=== PATIENT | male | born 1960 | race Caucasian/White ===

== ENCOUNTER 2017-08-07 09:42 | Inpatient (IN) | payer MEDICARE, OTHER ==
[2017-08-07] MEDS ORDERED: ALTEPLASE 2 MG VIAL (CATHFLO) IV STA (10:12)
--- NOTE | 2017-08-07 10:16 | ED ---
General Adult HPI - General Chief complaint: Urogenital Stated complaint: Picc Line Replacement Time Seen by Provider: 08/07/17 10:10 Source: EMS, RN notes reviewed Mode of arrival: EMS Limitations: physical limitation - History of Present Illness Initial comments: 57-year-old male who is a poor historian and unable to give history presents due to concern for PICC line out of place as well as concern for sepsis due to possible UTI. This is all that is red and on the report from the alf where the patient came from. The patient is unable to give a history. Does have a UTI per them as well and he's been receiving meropenem however they believe that he broke out in rash of this and they're concerned for an ALLERGY. Patient says no to pain when asked. Unable to get further review of systems. - Related Data Home Medications Medication Instructions Recorded Confirmed Amantadine Syrup 50mg/5mg 100 mg PEG/G-TUBE Q12H 08/07/17 08/07/17 Ascorbic Acid 100 mg PEG/G-TUBE DAILY 08/07/17 08/07/17 Cholecalciferol (Vitamin D3) 1,000 unit PEG/G-TUBE DAILY 08/07/17 08/07/17 [Children's Vitamin D3] Esomeprazole Magnesium Packet 20 mg PEG/G-TUBE DAILY 08/07/17 08/07/17 Ferrous Sulfate Oral Elixir 300 mg PEG/G-TUBE DAILY 08/07/17 08/07/17 [Feosol Liquid] Gabapentin 250mg/5ml 400 mg PEG/G-TUBE Q8H 08/07/17 08/07/17 HYDROcodone/APAP 7.5-325MG [[place] 1 tab PEG/G-TUBE Q4H PRN 08/07/17 08/07/17 7.5-325] Ipratropium-Albuterol Nebulize 3 ml INHALATION RT-Q4H PRN 08/07/17 08/07/17 [Duoneb 0.5 mg-3 mg/3 ml Soln] Jevity 1.5 Sherman Liquid 2 can PEG/G-TUBE TID 08/07/17 08/07/17 Magnesium Oxide [Magox 400] 400 mg PEG/G-TUBE DAILY 08/07/17 08/07/17 Meropenem [Merrem] 1 gm IVPB Q8H 08/07/17 08/07/17 Metoprolol Tartrate [Lopressor] 25 mg PEG/G-TUBE Q12H 08/07/17 08/07/17 Multivitamins, Thera [Multivitamin 1 tab PEG/G-TUBE DAILY 08/07/17 08/07/17 (formulary)] Scopolamine 1 patch TRANSDERM Q72H 08/07/17 08/07/17 Sennosides-Docusate Sodium 1 tab PEG/G-TUBE BID 08/07/17 08/07/17 [Senokot-S] Warfarin [Coumadin] 3 mg PEG/G-TUBE DAILY 08/07/17 08/07/17 Allergies Allergy/AdvReac Type Severity Reaction Status Date / Time meropenem [From Merrem] Allergy Rash/Hives Verified 08/07/17 10:07 Review of Systems ROS Statement: Those systems with pertinent positive or pertinent negative responses have been documented in the HPI. ROS Other: All systems not noted in ROS Statement are negative. Past Medical History Past Medical History: Deep Vein Thrombosis (DVT), Musculoskeletal Disorder Additional Past Medical History / Comment(s): PEG, Impaired speech, NPO,DVT-arm History of Any Multi-Drug Resistant Organisms: None Reported Additional Past Surgical History / Comment(s): PEG, PICC Past Psychological History: Depression Smoking Status: Never smoker Past Alcohol Use History: None Reported Past Drug Use History: None Reported General Exam Limitations: physical limitation General appearance: alert, in no apparent distress Eye exam: Present: normal appearance, PERRL, EOMI. Absent: scleral icterus, conjunctival injection, periorbital swelling ENT exam: Present: normal exam, mucous membranes moist Neck exam: Present: normal inspection. Absent: tenderness, meningismus, lymphadenopathy Respiratory exam: Present: normal lung sounds bilaterally. Absent: respiratory distress, wheezes, rales, rhonchi, stridor Cardiovascular Exam: Present: regular rate, normal rhythm, normal heart sounds. Absent: systolic murmur, diastolic murmur, rubs, gallop, clicks GI/Abdominal exam: Present: soft, normal bowel sounds. Absent: distended, tenderness, guarding, rebound, rigid Neurological exam: Present: alert Psychiatric exam: Present: normal affect, normal mood Skin exam: Present: warm, dry, intact, normal color. Absent: rash Course Vital Signs 08/07/17 08/07/17 09:45 13:12 Temperature 95.7 F L 96.7 F L Pulse Rate 86 76 Respiratory 16 18 Rate Blood Pressure 117/77 144/90 O2 Sat by Pulse 96 97 Oximetry Medical Decision Making - Medical Decision Making 57-year-old male presents for misplacement of PICC line as well as UTI with concern for sepsis. This time urinalysis did show UTI. At this time we will admit the patient Zosyn was started. Atrophy doesn't does agree to this admission. Patient is agreement this plan. - Lab Data Result diagrams: 08/07/17 10:37 08/07/17 10:37 Lab Results 08/07/17 08/07/17 08/07/17 Range/Units 10:37 10:37 10:37 WBC 11.4 H (3.8-10.6) k/uL RBC 4.43 (4.30-5.90) m/uL Hgb 10.2 L (13.0-17.5) gm/dL Hct 35.6 L (39.0-53.0) % MCV 80.3 (80.0-100.0) fL MCH 23.1 L (25.0-35.0) pg MCHC 28.8 L (31.0-37.0) g/dL RDW 17.5 H (11.5-15.5) % Plt Count 490 H (150-450) k/uL Neutrophils % 75 % Lymphocytes % 13 % Monocytes % 6 % Eosinophils % 4 % Basophils % 0 % Neutrophils # 8.5 H (1.3-7.7) k/uL Lymphocytes # 1.5 (1.0-4.8) k/uL Monocytes # 0.7 (0-1.0) k/uL Eosinophils # 0.5 (0-0.7) k/uL Basophils # 0.1 (0-0.2) k/uL Hypochromasia Marked Anisocytosis Slight Microcytosis Slight Sodium 140 (137-145) mmol/L Potassium 4.6 (3.5-5.1) mmol/L Chloride 105 (98-107) mmol/L Carbon Dioxide 24 (22-30) mmol/L Anion Gap 11 mmol/L BUN 29 H (9-20) mg/dL Creatinine 1.03 (0.66-1.25) mg/dL Est GFR (MDRD) Af Amer >60 (>60 ml/min/1.73 sqM) Est GFR (MDRD) Non-Af >60 (>60 ml/min/1.73 sqM) Glucose 106 H (74-99) mg/dL Plasma Lactic Acid [place] 0.9 (0.7-2.0) mmol/L Calcium 9.0 (8.4-10.2) mg/dL Total Bilirubin 0.1 L (0.2-1.3) mg/dL AST 18 (17-59) U/L ALT 28 (21-72) U/L Alkaline Phosphatase 127 H (38-126) U/L Total Protein 7.8 (6.3-8.2) g/dL Albumin 3.4 L (3.5-5.0) g/dL Urine Color Urine Appearance (Clear) Urine pH (5.0-8.0) Ur Specific [place] (1.001-1.035) Urine Protein (Negative) Urine Glucose (UA) (Negative) Urine Ketones (Negative) Urine Blood (Negative) Urine Nitrite (Negative) Urine Bilirubin (Negative) Urine Urobilinogen (<2.0) mg/dL Ur Leukocyte Esterase (Negative) Urine RBC (0-5) /hpf Urine WBC (0-5) /hpf Urine WBC Clumps (None) /hpf Urine Bacteria (None) /hpf Urine Mucus (None) /hpf 08/07/17 Range/Units 10:56 WBC (3.8-10.6) k/uL RBC (4.30-5.90) m/uL Hgb (13.0-17.5) gm/dL Hct (39.0-53.0) % MCV (80.0-100.0) fL MCH (25.0-35.0) pg MCHC (31.0-37.0) g/dL RDW (11.5-15.5) % Plt Count (150-450) k/uL Neutrophils % % Lymphocytes % % Monocytes % % Eosinophils % % Basophils % % Neutrophils # (1.3-7.7) k/uL Lymphocytes # (1.0-4.8) k/uL Monocytes # (0-1.0) k/uL Eosinophils # (0-0.7) k/uL Basophils # (0-0.2) k/uL Hypochromasia Anisocytosis Microcytosis Sodium (137-145) mmol/L Potassium (3.5-5.1) mmol/L Chloride (98-107) mmol/L Carbon Dioxide (22-30) mmol/L Anion Gap mmol/L BUN (9-20) mg/dL Creatinine (0.66-1.25) mg/dL Est GFR (MDRD) Af Amer (>60 ml/min/1.73 sqM) Est GFR (MDRD) Non-Af (>60 ml/min/1.73 sqM) Glucose (74-99) mg/dL Plasma Lactic Acid [place] (0.7-2.0) mmol/L Calcium (8.4-10.2) mg/dL Total Bilirubin (0.2-1.3) mg/dL AST (17-59) U/L ALT (21-72) U/L Alkaline Phosphatase (38-126) U/L Total Protein (6.3-8.2) g/dL Albumin (3.5-5.0) g/dL Urine Color Yellow Urine Appearance Turbid (Clear) Urine pH 7.0 (5.0-8.0) Ur Specific [place] 1.013 (1.001-1.035) Urine Protein 1+ H (Negative) Urine Glucose (UA) Negative (Negative) Urine Ketones Negative (Negative) Urine Blood Moderate H (Negative) Urine Nitrite Positive (Negative) Urine Bilirubin Negative (Negative) Urine Urobilinogen <2.0 (<2.0) mg/dL Ur Leukocyte Esterase Large H (Negative) Urine RBC 42 H (0-5) /hpf Urine WBC >182 H (0-5) /hpf Urine WBC Clumps Many H (None) /hpf Urine Bacteria Moderate H (None) /hpf Urine Mucus Rare H (None) /hpf - Radiology Data Radiology results: report reviewed, image reviewed Disposition Clinical Impression: UTI (urinary tract infection), Sepsis, Failure of outpatient treatment, Status post PICC central line placement Disposition: ADMITTED IP TO THIS [facility] Condition: Stable Referrals: Brenden Olivares DO [Primary Care Provider] - 1-2 days Decision Date: 08/07/17 Decision Time: 13:36
[2017-08-07] MEDS ORDERED: SODIUM CHLORIDE 0.9% 500 ML IV STA (10:17)
[2017-08-07] MEDS ORDERED: PIPERACILLIN-TAZOBACTAM 3.375 GM in DEXTROSE/WATER 1 50ML.BAG IVPB STA (10:24)
[2017-08-07 11:01] LABS: ALT 28 U/L (21-72); AST 18 U/L (17-59); Alkaline Phosphatase 127 U/L (38-126); Anion Gap 11 mmol/L; Blood Urea Nitrogen 29 mg/dL (9-20); Carbon Dioxide 24 mmol/L (22-30); Chloride 105 mmol/L (98-107); Glucose 106 mg/dL (74-99); Non-African American GFR(MDRD) >60 (>60 ml/min/1.73 sqM); Potassium 4.6 mmol/L (3.5-5.1); Sodium 140 mmol/L (137-145); Total Bilirubin 0.1 mg/dL (0.2-1.3); Total Protein 7.8 g/dL (6.3-8.2)
[2017-08-07 11:10] LABS: Anisocytosis Slight; Basophils # (A) 0.1 k/uL (0-0.2); Basophils % (A) 0 %; CH 23.3; Eosinophils # (A) 0.5 k/uL (0-0.7); Eosinophils % (A) 4 %; HCT 35.6 % (39.0-53.0); HDW 2.79; HGB 10.2 gm/dL (13.0-17.5); Hypochromasia Marked; Luc # (Auto) 0.14; Luc % (Auto) 1; Lymphocytes # (A) 1.5 k/uL (1.0-4.8); Lymphocytes % (A) 13 %; MCH 23.1 pg (25.0-35.0); MCHC 28.8 g/dL (31.0-37.0); MCV 80.3 fL (80.0-100.0); Mean Platelet Volume 7.8; Microcytosis Slight; Monocytes # (A) 0.7 k/uL (0-1.0); Monocytes % (A) 6 %; Neutrophils # (A) 8.5 k/uL (1.3-7.7); Neutrophils % (A) 75 %; RBC 4.43 m/uL (4.30-5.90); RDW 17.5 % (11.5-15.5); WBC 11.4 k/uL (3.8-10.6); WBC (Perox) 10.92
[2017-08-07 11:29] LABS: Appearance,Urine Turbid (Clear); Bacteria,Urine Moderate /hpf; Bilirubin,Urine Negative (Negative); Glucose,Urine (UA) Negative (Negative); Ketones,Urine Negative (Negative); Leukocyte Esterase,Urine Large (Negative); Mucus,Urine Rare /hpf; Nitrite,Urine Positive (Negative); Particle Count 60518; Protein,Urine 1+ (Negative); RBC,Urine 42 /hpf (0-5); Specific Gravity,Urine 1.013 (1.001-1.035); UA Billing (MACRO vs. MICRO) MICRO; Urobilinogen,Urine <2.0 mg/dL (<2.0); WBC,Urine >182 /hpf (0-5)
--- NOTE | 2017-08-07 12:06 | XR ---
EXAMINATION TYPE: XR chest 2V DATE OF EXAM: 08/07/2017 COMPARISON: None HISTORY: 57-year-old male PICC line placement, concern that PICC line is out of place TECHNIQUE: AP and lateral views FINDINGS: Patient is obliqued. Heart appears upper limits of normal in size. Aorta and pulmonary vasculature wi thin normal limits. Mild diffuse interstitial prominence has a chronic appearance. No consolidation, air leak, or pleural effusion. PICC line is not visualized. Chronic left-sided rib fracture deformities. IMPRESSION: PICC line is not visualized within the thorax. Chronic appearing changes; no acute process seen.
--- NOTE | 2017-08-07 12:12 | XR ---
EXAMINATION TYPE: XR shoulder complete RT DATE OF EXAM: 08/07/2017 COMPARISON: NONE HISTORY: 57-year-old male PICC line placement TECHNIQUE: 3 views FINDINGS: Mild degenerative changes at the AC joint. There appears to be a catheter, probably the patient's PIC C line terminating just below the level of the right axilla along the medial arm. This is indicated b y arrows on both the AP and scapular Y views. IMPRESSION: A catheter, likely the patient's malpositioned PICC line terminating just below the level of the righ t axilla. Further clinical correlation recommended.
[2017-08-07] MEDS ORDERED: NALOXONE 0.4 MG/ML 1 ML VIAL IV PRN (13:36)
[2017-08-07] MEDS ORDERED: ONDANSETRON 4 MG/2 ML VIAL IVP PRN (13:36)
[2017-08-07] MEDS ORDERED: IPRATROPIUM-ALBUTEROL 3 ML NEB INHALATION PRN (13:37)
[2017-08-07] MEDS ORDERED: JEVITY CAL PEG/G-TUBE SCH (16:00)
[2017-08-07] MEDS ORDERED: GABAPENTIN PO SCH (16:00)
[2017-08-07] MEDS ORDERED: GABAPENTIN 400 MG CAP PO SCH (17:30)
[2017-08-07] MEDS: GABAPENTIN 400 MG CAP PO SCH ×2 (17:59→20:47)
[2017-08-07] MEDS: METOPROLOL TARTRATE 25 MG TAB PEG/G-TUBE SCH ×2 (17:59→20:46)
[2017-08-07] MEDS: SCOPOLAMINE 1.5MG/72HR PATCH TRANSDERM SCH (17:59)
[2017-08-07] MEDS: SODIUM CHLORIDE 0.9% 1,000 ML IV SCH (18:09)
[2017-08-07] MEDS: PIPERACILLIN-TAZOBACTAM 3.375 GM in DEXTROSE/WATER 1 50ML.BAG IVPB SCH (19:44)
[2017-08-07 19:52] LABS: INR 2.2 (<1.2); Prothrombin Time 20.8 sec (9.0-12.0)
[2017-08-07] MEDS: AMANTADINE HCL PEG/G-TUBE SCH (20:47)
--- NOTE | 2017-08-08 00:08 | P.HPIM ---
History of Present Illness H&P Date: 08/07/17 Chief Complaint: PICC line displacement 57-year-old male with a past history of musculoskeletal disorder and chronic lower extremity contractures and DVT and Coumadin, who is a poor historian and unable to give history presents due to concern for PICC line out of place as well as concern for sepsis due to possible UTI. This is all that is read on the report from the [facility] where the [facility] came [facility]. The patient is unable to give a history. Does have a UTI per them as well and he's been receiving meropenem however they believe that he broke out in rash of this and they're concerned for an ALLERGY. Patient says no to pain when asked. Patient does say yes or no and he can understand but could not able to communicate. Unable to get further review of systems. Review of Systems Complete review of systems could not be a peripheral the patient ROS unobtainable: due to mental status Past Medical History Past Medical History: Deep Vein Thrombosis (DVT), Musculoskeletal Disorder, Renal Disease Additional Past Medical History / Comment(s): pt poor historian-cog impariment/ Impaired speech, NPO-peg tube,DVT-arm, MS, IDC ,INCONT OF BOWEL. LAST BM 08-07-17 ,UTI'S,SACRAL WOUND,CONTRACTURES,DYSARTHRIA/ANARTHRIA/DYSPHAGIA.BEDBOUND, RACHEL LIFT TO W/C. History of Any Multi-Drug Resistant Organisms: None Reported Additional Past Surgical History / Comment(s): PEG, PICC(MISPLACED-SENT TO [facility]) , HX OF GASTROSTOMY Past Anesthesia/Blood Transfusion Reactions: Unable to Obtain Past Psychological History: Depression Additional Psychological History / Comment(s): PT RESIDES AT [facility] [phone] Smoking Status: Never smoker Past Alcohol Use History: None Reported Past Drug Use History: None Reported - Past Family History Father Family Medical History: Unable to Obtain Mother Family Medical History: Unable to Obtain Medications and Allergies Home Medications Medication Instructions Recorded Confirmed Type Amantadine Syrup 50mg/5mg 100 mg PEG/G-TUBE Q12H 08/07/17 08/07/17 History Ascorbic Acid 100 mg PEG/G-TUBE DAILY 08/07/17 08/07/17 History Cholecalciferol (Vitamin D3) 1,000 unit PEG/G-TUBE DAILY 08/07/17 08/07/17 History [Children's Vitamin D3] Esomeprazole Magnesium Packet 20 mg PEG/G-TUBE DAILY 08/07/17 08/07/17 History Ferrous Sulfate Oral Elixir 300 mg PEG/G-TUBE DAILY 08/07/17 08/07/17 History [Feosol Liquid] Gabapentin 250mg/5ml 400 mg PEG/G-TUBE Q8H 08/07/17 08/07/17 History HYDROcodone/APAP 7.5-325MG [[place] 1 tab PEG/G-TUBE Q4H PRN 08/07/17 08/07/17 History 7.5-325] Ipratropium-Albuterol Nebulize 3 ml INHALATION RT-Q4H PRN 08/07/17 08/07/17 History [Duoneb 0.5 mg-3 mg/3 ml Soln] Jevity 1.5 Sherman Liquid 2 can PEG/G-TUBE TID 08/07/17 08/07/17 History Magnesium Oxide [Magox 400] 400 mg PEG/G-TUBE DAILY 08/07/17 08/07/17 History Meropenem [Merrem] 1 gm IVPB Q8H 08/07/17 08/07/17 History Metoprolol Tartrate [Lopressor] 25 mg PEG/G-TUBE Q12H 08/07/17 08/07/17 History Multivitamins, Thera [Multivitamin 1 tab PEG/G-TUBE DAILY 08/07/17 08/07/17 History (formulary)] Scopolamine 1 patch TRANSDERM Q72H 08/07/17 08/07/17 History Sennosides-Docusate Sodium 1 tab PEG/G-TUBE BID 08/07/17 08/07/17 History [Senokot-S] Warfarin [Coumadin] 3 mg PEG/G-TUBE DAILY 08/07/17 08/07/17 History Allergies Allergy/AdvReac Type Severity Reaction Status Date / Time meropenem [From Merrem] Allergy Rash/Hives Verified 08/07/17 10:07 Physical Exam Vitals: Vital Signs Temp Pulse Pulse Resp BP BP Pulse Ox 08/07/17 16:00 82 18 08/07/17 15:00 97.5 F L 82 18 133/83 99 08/07/17 14:21 96.8 F L 84 18 139/79 99 08/07/17 14:02 97 08/07/17 13:12 96.7 F L 76 18 144/90 97 08/07/17 09:45 95.7 F L 86 16 117/77 96 Intake and Output 08/07/17 08/07/17 08/07/17 06:59 14:59 22:59 Other: Voiding Method Indwelling Catheter Indwelling Catheter # Bowel Movements 1 Weight 57.153 kg 57.153 kg Patient Weight 08/08/17 06:59 Weight 57.153 kg PHYSICAL EXAMINATION: Patient is lying in the bed comfortably, no acute distress, awake alert but cannot communicate HEENT: Normocephalic. Neck is supple. Pupils reactive. Nostrils clear. Oral cavity is moist. Ears reveal no drainage. Neck reveals no JVD, carotid bruits, or thyromegaly. CHEST EXAMINATION: Trachea is central. Symmetrical expansion. Lung prater clear to auscultation and percussion. CARDIAC: Normal S1, S2 with no gallops. No murmurs ABDOMEN: Soft. Bowel sounds normal. No organomegaly. No abdominal bruits. Extremities: reveal no edema. No clubbing or cyanosis Neurologically awake, alert. Patient does have bilateral lower activity contractures Skin: No rash or skin lesions. Psychiatric: Could not be assessed Musculoskeletal: No joint swelling or deformity. Lower extremity contractures Results CBC & Chem 7: 08/07/17 10:37 08/07/17 10:37 Labs: Abnormal Lab Results - Last 24 Hours (Table) 08/07/17 08/07/17 08/07/17 Range/Units 10:37 10:37 10:37 WBC 11.4 H (3.8-10.6) k/uL Hgb 10.2 L (13.0-17.5) gm/dL Hct 35.6 L (39.0-53.0) % MCH 23.1 L (25.0-35.0) pg MCHC 28.8 L (31.0-37.0) g/dL RDW 17.5 H (11.5-15.5) % Plt Count 490 H (150-450) k/uL Neutrophils # 8.5 H (1.3-7.7) k/uL PT 20.8 H (9.0-12.0) sec INR 2.2 H (<1.2) BUN 29 H (9-20) mg/dL Glucose 106 H (74-99) mg/dL Total Bilirubin 0.1 L (0.2-1.3) mg/dL Alkaline Phosphatase 127 H (38-126) U/L Albumin 3.4 L (3.5-5.0) g/dL Urine Protein (Negative) Urine Blood (Negative) Ur Leukocyte Esterase (Negative) Urine RBC (0-5) /hpf Urine WBC (0-5) /hpf Urine WBC Clumps (None) /hpf Urine Bacteria (None) /hpf Urine Mucus (None) /hpf 08/07/17 Range/Units 10:56 WBC (3.8-10.6) k/uL Hgb (13.0-17.5) gm/dL Hct (39.0-53.0) % MCH (25.0-35.0) pg MCHC (31.0-37.0) g/dL RDW (11.5-15.5) % Plt Count (150-450) k/uL Neutrophils # (1.3-7.7) k/uL PT (9.0-12.0) sec INR (<1.2) BUN (9-20) mg/dL Glucose (74-99) mg/dL Total Bilirubin (0.2-1.3) mg/dL Alkaline Phosphatase (38-126) U/L Albumin (3.5-5.0) g/dL Urine Protein 1+ H (Negative) Urine Blood Moderate H (Negative) Ur Leukocyte Esterase Large H (Negative) Urine RBC 42 H (0-5) /hpf Urine WBC >182 H (0-5) /hpf Urine WBC Clumps Many H (None) /hpf Urine Bacteria Moderate H (None) /hpf Urine Mucus Rare H (None) /hpf Microbiology - Last 24 Hours (Table) 08/07/17 10:56 Urine Culture - Preliminary Urine,Catheterized Assessment and Plan Assessment: #1 acute urinary tract infection. #2 recent urinary tract infection on meropenem at [facility] which has been discontinued due to possible ALLERGY reaction #3 PICC line displacement. #4 musculoskeletal disorder and contractures #5 DVT on Coumadin Plan: Patient will be continued on antibiotics Zosyn at this time. Will follow urine culture report. We will consult PICC line team for repositioning PICC line tip , possibly pulling out couple of inches. Will continue the supportive care and continue the home medications and follow closely. Further recommendations based on the clinical course. Time with Patient: Greater than 30
[2017-08-08] MEDS: PIPERACILLIN-TAZOBACTAM 3.375 GM in DEXTROSE/WATER 1 50ML.BAG IVPB SCH ×3 (03:15→20:31)
[2017-08-08] MEDS: SODIUM CHLORIDE 0.9% 1,000 ML IV SCH ×3 (03:15→22:30)
[2017-08-08] MEDS ORDERED: ESOMEPRAZOLE MAGNESIUM 20 MG PEG/G-TUBE SCH (09:00)
[2017-08-08] MEDS: AMANTADINE HCL PEG/G-TUBE SCH ×2 (09:59→20:41)
[2017-08-08] MEDS: GABAPENTIN 400 MG CAP PO SCH ×3 (10:00→22:33)
[2017-08-08] MEDS: ASCORBIC ACID 500 MG TAB PEG/G-TUBE SCH (10:00)
[2017-08-08] MEDS: CHOLECALCIFEROL 1,000 UNIT TAB PEG/G-TUBE SCH (10:00)
[2017-08-08] MEDS: MAGNESIUM OXIDE 400 MG TAB PEG/G-TUBE SCH (10:01)
[2017-08-08] MEDS: METOPROLOL TARTRATE 25 MG TAB PEG/G-TUBE SCH ×2 (10:01→20:40)
[2017-08-08] MEDS: PANTOPRAZOLE 40 MG/10 ML VIAL IV SCH (10:36)
[2017-08-08] MEDS: FERROUS SULFATE ORAL ELIXIR 300 MG/5 ML CUP PEG/G-TUBE SCH (10:42)
[2017-08-08 12:31] LABS: INR 2.4 (<1.2); Prothrombin Time 23.5 sec (9.0-12.0)
[2017-08-08] MEDS: WARFARIN 3 MG TAB PEG/G-TUBE SCH (16:06)
--- NOTE | 2017-08-08 16:11 | CDI ---
In responding to this query, please exercise your independent professional judgment. The [facility] Coding Staff and Clinical Documentation Specialists appreciate your assistance in clarifying documentation, maintaining compliance with coding guidelines, accurately documenting patients condition and capturing severity of illness. The fact that a question is asked does not imply that any particular answer is desired or expected. Communication forms are a method of clarifying documentation and are not made part of the Legal Health Record. Thank you in advance for your clarification. Last Revision, August 2015 Nathalie Perez [address] [facility] [place] [address] Documentation Clarification Form Date: 08/08/2017 3:49:00 PM From: Martha Pastor RN, CCDS Admit Date: 08/07/2017 2:03:00 PM Patient Name: Chris Marvin Visit Number: [id number] Dr. Yair Alvarez Patient history/risk factors PMH: pt poor historian-cog impairment/ impaired speech, NPO-peg tube, DVT-arm, MS, IDC, INCONT OF BOWEL. LAST BM 08/07/17, UTI'S, SACRALWOUND, CONTRACTURES, DYSARTHRIA/ANARTHRIA/DYSPHAGIA .BEDBOUND, RACHEL LIFT TO W/C. Clinical Indicators: 08/07 H&P: "musculoskeletal disorder and contractures." CXR: Chronic rib deformities, Picc line not visualized within the thorax. Chronic appearing changes. Vital Signs: Temp 95.7, HR 86, RR 16, B/P 117/77, Spo2 96 % ra Treatment: Turn Q 2 hrs, assistance with ADLS In your professional opinion, can you please clarify the severity of illness? Functional Quadriplegia Quadriplegia d/t other specified cause (please identify) Other Unable to determine Please document in your progress notes and discharge summary in order to capture severity of illness and risk of mortality. Include clinical findings that support your diagnosis. FYI: Press F11 to launch patient chart. JOSE MIGUEL
[2017-08-08] MEDS: MULTIVITAMINS, THERA 1 EACH TAB PEG/G-TUBE SCH (16:19)
--- NOTE | 2017-08-08 21:52 | P.PN ---
Subjective Progress Note Date: 08/08/17 Principal diagnosis: Urinary tract infection 57-year-old male with a past history of musculoskeletal disorder and chronic lower extremity contractures and DVT and Coumadin, who is a poor historian and unable to give history presents due to concern for PICC line out of place as well as concern for sepsis due to possible UTI. This is all that is read [facility]. The patient is unable to give a history. Does have a UTI per them as well and he's been receiving meropenem however they believe that he broke out in rash of this and they're concerned for an ALLERGY. Patient says no to pain when asked. Patient does say yes or no and he can understand but could not able to communicate. Unable to get further review of systems. 08/08/2017 Patient Out any history at this time. Patient does say yes or no. No acute overnight issues. IR was consulted for PICC line adjustment. Continued on IV antibiotics now. No fever no chills. Current medications reviewed. Objective - Vital Signs Vital signs: Vital Signs Temp 98.0 F 08/08/17 19:53 Pulse 82 08/08/17 20:21 Resp 22 08/08/17 20:21 BP 112/72 08/08/17 19:53 Pulse Ox 97 08/08/17 19:53 Intake & Output 08/08/17 08/08/17 08/09/17 06:59 18:59 06:59 Intake Total 1350 600 Output Total 2200 Balance 1350 -1600 Weight 57.153 kg Intake: Intake, IV Titration 1300 Amount Piperacillin-Tazobactam 3 100 .375 gm In Dextrose/Water 1 50ml.bag @ 12.5 mls/hr IVPB Q8H [facility] Rx#: [id number] Sodium Chloride 0.9% 1, 1200 000 ml @ 100 mls/hr IV . Q10H [facility] Rx#:[id number] Tube Feeding 600 Other 50 Output: Urine 2200 Other: Voiding Method Indwelling Catheter Indwelling Catheter # Voids 1 1 # Bowel Movements 3 - Exam Patient is lying in the bed comfortably, no acute distress, awake alert but cannot communicate HEENT: Normocephalic. Neck is supple. Pupils reactive. Nostrils clear. Oral cavity is moist. Ears reveal no drainage. Neck reveals no JVD, carotid bruits, or thyromegaly. CHEST EXAMINATION: Trachea is central. Symmetrical expansion. Lung prater clear to auscultation and percussion. CARDIAC: Normal S1, S2 with no gallops. No murmurs ABDOMEN: Soft. Bowel sounds normal. No organomegaly. No abdominal bruits. Extremities: reveal no edema. No clubbing or cyanosis Neurologically awake, alert. Patient does have bilateral lower activity contractures Skin: No rash or skin lesions. Psychiatric: Could not be assessed Musculoskeletal: No joint swelling or deformity. Lower extremity contractures - Labs CBC & Chem 7: 08/07/17 10:37 08/07/17 10:37 Labs: Abnormal Lab Results - Last 24 Hours (Table) 08/08/17 Range/Units 11:58 PT 23.5 H (9.0-12.0) sec INR 2.4 H (<1.2) APTT 40.0 H (22.0-30.0) sec Microbiology - Last 24 Hours (Table) 08/07/17 10:56 Urine Culture - Preliminary Urine,Catheterized Gram Neg Bacilli 08/07/17 10:37 Blood Culture - Preliminary Blood No Growth after 24 hours Assessment and Plan Assessment: #1 acute urinary tract infection. #2 recent urinary tract [facility] which has been discontinued due to possible ALLERGY reaction #3 PICC line displacement. #4 musculoskeletal disorder and contractures and quadriplegia #5 history of DVT on Coumadin Plan: Patient will be continued on antibiotics Zosyn at this time. Will follow urine culture report. consulted IR team for repositioning PICC line tip, possibly pulling out couple of inches. Will continue the supportive care and continue the home medications and follow closely. Further recommendations based on the clinical course.
[2017-08-09] MEDS: PIPERACILLIN-TAZOBACTAM 3.375 GM in DEXTROSE/WATER 1 50ML.BAG IVPB SCH ×3 (03:46→19:59)
[2017-08-09 09:11] LABS: INR 2.2 (<1.2); Prothrombin Time 21.6 sec (9.0-12.0)
[2017-08-09] MEDS: AMANTADINE HCL PEG/G-TUBE SCH ×2 (09:42→22:56)
[2017-08-09] MEDS: ASCORBIC ACID 500 MG TAB PEG/G-TUBE SCH (09:43)
[2017-08-09] MEDS: CHOLECALCIFEROL 1,000 UNIT TAB PEG/G-TUBE SCH (09:43)
[2017-08-09] MEDS: FERROUS SULFATE ORAL ELIXIR 300 MG/5 ML CUP PEG/G-TUBE SCH (09:43)
[2017-08-09] MEDS: GABAPENTIN 400 MG CAP PO SCH ×3 (09:43→22:56)
[2017-08-09] MEDS: MAGNESIUM OXIDE 400 MG TAB PEG/G-TUBE SCH (09:43)
[2017-08-09] MEDS: PANTOPRAZOLE 40 MG/10 ML VIAL IV SCH (09:44)
[2017-08-09] MEDS: METOPROLOL TARTRATE 25 MG TAB PEG/G-TUBE SCH ×2 (09:54→22:56)
[2017-08-09] MEDS: HYDROcodone/APAP 7.5-325MG 1 EACH TAB PEG/G-TUBE PRN (12:10)
[2017-08-09] MEDS: MULTIVITAMINS, THERA 1 EACH TAB PEG/G-TUBE SCH (12:18)
[2017-08-09] MEDS ORDERED: LIDOCAINE 2% (PF) 20 MG/ML 10 ML AMP SQ ONE (14:25)
--- NOTE | 2017-08-09 15:29 | IR ---
EXAMINATION TYPE: IR cvc insert >=5 years DATE OF EXAM: 08/09/2017 COMPARISON: NONE CLINICAL HISTORY: Urinary tract infection Needs long-term intravenous access for antibiotics. PICC line not functioning PROCEDURE: Patient's indwelling upper extremity IV access on the right was prepped and draped. Lidocaine used fo r local anesthesia. A partial withdrawal of the catheter is performed, the catheter cut. The wire was advanced, it is noted that the indwelling line is not a PICC line but a probable midline catheter. T he catheter was removed. Skin overlying the right basilic vein was localized with ultrasound and note d to be compressible and patent. An ultrasound image was obtained and submitted on the patient's [facility] rt. The overlying skin was prepped and draped and Lidocaine was used for local anesthesia. A skin n ick was made with a scalpel. Access was gained to the vein under ultrasound guidance with a 21 gauge needle and a 0.018 inch wire was advanced. Access site was dilated with Peel-Away sheath and cathet er tailored to the appropriate length and advanced such that the distal tip is at the cavoatrial junc tion. Spot image was obtained verifying placement. Catheter was fixed to the skin with suture and a sterile dressing was placed following hemostasis. Catheter was aspirated and flushed with saline. Patient was discharged in stable condition without complication.Maximal barrier technique is utilized . Ultrasound image is documented on the chart. Ultrasound used with sterile technique. Fluoro time and fluoroscopic images submitted to document procedure: 106 intraoperative C-arm images, 1.4 minutes fluoroscopy time IMPRESSION: STATUS POST ULTRASOUND AND FLUOROSCOPIC GUIDED PICC LINE PLACEMENT, READY FOR USE. THIS PROCEDURE WAS PERFORMED BY THE UNDERSIGNED. Removal of indwelling catheter.
--- NOTE | 2017-08-09 16:13 | P.PN ---
Subjective Progress Note Date: 08/09/17 Progress note being dictated for Dr. Alvarez. Interval history:57-year-old male with a past history of musculoskeletal disorder and chronic lower extremity contractures and DVT and Coumadin, who is a poor historian and unable to give history presents due to concern for PICC line out of place as well as concern for sepsis due to possible UTI. This is all that is read on the report from the care home where the patient came from. The patient is unable to give a history. Does have a UTI per them as well and he's been receiving meropenem however they believe that he broke out in rash of this and they're concerned for an ALLERGY. Patient says no to pain when asked. Patient does say yes or no and he can understand but could not able to communicate. Unable to get further review of systems. 08/08/2017 Patient Out any history at this time. Patient does say yes or no. No acute overnight issues. IR was consulted for PICC line adjustment. Continued on IV antibiotics now. No fever no chills. Current medications reviewed. 08/09/2017 until gone IV antibiotics of Zosyn. scheduled for PICC line adjustment with interventional radiology today. ID Evaluation/recommendations of Stage III buttocks wound ulcer, pending. Urine culture currently reporting gram-negative bacilli. Afebrile. Objective - Vital Signs Vital signs: Vital Signs Temp 98.1 F 08/09/17 07:00 Pulse 83 08/09/17 07:00 Resp 16 08/09/17 07:00 BP 92/56 08/09/17 07:00 Pulse Ox 99 08/09/17 07:00 Intake & Output 08/08/17 08/09/17 08/09/17 18:59 06:59 18:59 Intake Total 600 540 Output Total 2200 700 Balance -1600 -160 Weight 57.153 kg 57.153 kg Intake: Tube Feeding 600 540 Output: Urine 2200 700 Uretheral (Stein) 700 Other: Voiding Method Indwelling Catheter Indwelling Catheter Indwelling Catheter # Voids 1 # Bowel Movements 3 - Exam Patient is lying in the bed comfortably, no acute distress, awake alert but minimally communicates HEENT: Normocephalic. Neck is supple. Pupils reactive. Nostrils clear. Oral cavity is moist. Ears reveal no drainage. Neck reveals no JVD, carotid bruits, or thyromegaly. CHEST EXAMINATION: Trachea is central. Symmetrical expansion. Lung prater clear to auscultation and percussion. CARDIAC: Normal S1, S2 with no gallops. No murmurs ABDOMEN: Soft. Bowel sounds normal. No organomegaly. No abdominal bruits. Extremities: reveal no edema. No clubbing or cyanosis Neurologically awake, alert. Patient does have bilateral lower activity contractures Skin: No rash or skin lesions. Psychiatric: Could not be assessed Musculoskeletal: No joint swelling or deformity. Lower extremity contractures - Labs CBC & Chem 7: 08/07/17 10:37 08/07/17 10:37 Labs: Abnormal Lab Results - Last 24 Hours (Table) 08/09/17 Range/Units 08:48 PT 21.6 H (9.0-12.0) sec INR 2.2 H (<1.2) Microbiology - Last 24 Hours (Table) 08/07/17 10:37 Blood Culture - Preliminary Blood No Growth after 48 hours 08/07/17 10:56 Urine Culture - Preliminary Urine,Catheterized Gram Neg Bacilli Assessment and Plan Assessment: #1 acute urinary tract infection, gram-negative bacilli. #2 recent urinary tract infection on meropenem at care home which has been discontinued due to possible ALLERGY reaction #3 PICC line displacement. #4 musculoskeletal disorder and contractures and quadriplegia #5 history of DVT on Coumadin #6 buttocks, stage III wound ulcer, resonant on admission Plan: Continue on current medication regime ,monitoring and symptomatic treatment. Maintain Zosyn. Await final urine culture results. PICC line adjustment pending . Return to ECF after PICC line adjustment.. Discharge planning in progress. The impression and plan of care has been dictated as directed. : I performed a history and examination of this patient, discussed the same with the dictator. I agree with the dictator's note ,documented as a scribe. Any additional findings or plans will be noted.
[2017-08-09] MEDS: WARFARIN 3 MG TAB PEG/G-TUBE SCH (17:48)
[2017-08-09] MEDS: SODIUM CHLORIDE 0.9% 1,000 ML IV SCH ×2 (20:00→23:40)
--- NOTE | 2017-08-10 00:52 | P.CNNES ---
History of Present Illness Consult date: 08/09/17 Reason for Consult: Patient with advanced MS and contractures of legs. History of Present Illness: This patient is a 57-year-old right-handed white male who is currently residing at [facility]. Patient was transferred to [facility] on 08/07/2017 as there was concern for his PICC line was not functioning properly. He was being [facility] at the [facility] for urinary tract infection. Apparently the PICC line was not functional and for this reason he was sent to [facility] for evaluation. Interventional radiology was consulted for evaluation and replacement of the PICC line. The patient has a known history of underlying advanced multiple sclerosis. He has severe contractures of both upper and lower extremities. The lower extremity contractures are the worse. Review of this patient's medical history and medications do not show any evidence of treatment of his MS with interferon therapy. The patient is a very poor historian. He has very little verbal output. Apparently this has been his baseline of the [facility] prior to his admission here. Patient is being treated for urinary tract infection. He is currently on Zosyn and Fortaz. He also has a stage III decubitus ulcer which is being evaluated by infectious disease as well. Apparently the patient does have some episodes of pain due to his severe muscle contractures. Review of his medications fails to reveal any evidence for use of baclofen for this patient. When questioned the patient does seem to nod his head to questions with yes and no type responses. He has no verbal output. He is very hypophonic. His lower extremities are severely contracted almost into a position. Neurology was consulted today for further evaluation of his very advanced multiple sclerosis. We will try to obtain further information from the fdc as to his MS history. At this time the patient is not a candidate for IV Solu-Medrol as he would not likely see much benefit given the advanced stages of his MS. One option for the patient would be to consider use of a intrathecal baclofen pump placed by anesthesia or surgery. This should be brought up with his primary care physician to discuss referral to the appropriate centers for this specific treatment. The patient does seem to be awake and alert. He does follow only simple commands. Neurology is now been consulted for further evaluation and recommendations. Review of Systems Constitutional: Reports fatigue, Reports weight loss, Denies chills, Denies fever Eyes: denies blurred vision, denies pain Ears, nose, mouth and throat: Denies headache, Denies sore throat Cardiovascular: Denies chest pain, Denies shortness of breath Respiratory: Denies cough Gastrointestinal: Denies abdominal pain, Denies diarrhea, Denies nausea, Denies vomiting Musculoskeletal: Reports atrophy, Reports gait dysfunction, Reports leg numbness /tingling, Reports loss of height, Reports low back pain, Reports muscle cramps , Reports muscle weakness, Denies myalgias Integumentary: Denies pruritus, Denies rash Neurological: Reports aphasia, Reports change in mentation, Reports confusion, Reports motor disturbance, Reports paresthesias, Denies numbness, Denies weakness Psychiatric: Denies anxiety, Denies depression Endocrine: Denies fatigue, Denies weight change Past Medical History Past Medical History: Deep Vein Thrombosis (DVT), Musculoskeletal Disorder, Renal Disease Additional Past Medical History / Comment(s): pt poor historian-cog impariment/ Impaired speech, NPO-peg tube,DVT-arm, MS, IDC ,INCONT OF BOWEL. LAST BM 08-07-17 ,UTI'S,SACRAL WOUND,CONTRACTURES,DYSARTHRIA/ANARTHRIA/DYSPHAGIA.BEDBOUND, RACHEL LIFT TO W/C. History of Any Multi-Drug Resistant Organisms: None Reported Additional Past Surgical History / Comment(s): PEG, PICC(MISPLACED-SENT TO [facility]) , HX OF GASTROSTOMY Past Anesthesia/Blood Transfusion Reactions: Unable to Obtain Past Psychological History: Depression Additional Psychological History / Comment(s): PT RESIDES AT [facility] [phone] Smoking Status: Never smoker Past Alcohol Use History: None Reported Past Drug Use History: None Reported - Past Family History Father Family Medical History: Unable to Obtain Mother Family Medical History: Unable to Obtain Medications and Allergies Home Medications Medication Instructions Recorded Confirmed Type Amantadine Syrup 50mg/5mg 100 mg PEG/G-TUBE Q12H 08/07/17 08/07/17 History Ascorbic Acid 100 mg PEG/G-TUBE DAILY 08/07/17 08/07/17 History Cholecalciferol (Vitamin D3) 1,000 unit PEG/G-TUBE DAILY 08/07/17 08/07/17 History [Children's Vitamin D3] Esomeprazole Magnesium Packet 20 mg PEG/G-TUBE DAILY 08/07/17 08/07/17 History Ferrous Sulfate Oral Elixir 300 mg PEG/G-TUBE DAILY 08/07/17 08/07/17 History [Feosol Liquid] Gabapentin 250mg/5ml 400 mg PEG/G-TUBE Q8H 08/07/17 08/07/17 History HYDROcodone/APAP 7.5-325MG [[place] 1 tab PEG/G-TUBE Q4H PRN 08/07/17 08/07/17 History 7.5-325] Ipratropium-Albuterol Nebulize 3 ml INHALATION RT-Q4H PRN 08/07/17 08/07/17 History [Duoneb 0.5 mg-3 mg/3 ml Soln] Jevity 1.5 [place] Liquid 2 can PEG/G-TUBE TID 08/07/17 08/07/17 History Magnesium Oxide [Magox 400] 400 mg PEG/G-TUBE DAILY 08/07/17 08/07/17 History Meropenem [Merrem] 1 gm IVPB Q8H 08/07/17 08/07/17 History Metoprolol Tartrate [Lopressor] 25 mg PEG/G-TUBE Q12H 08/07/17 08/07/17 History Multivitamins, Thera [Multivitamin 1 tab PEG/G-TUBE DAILY 08/07/17 08/07/17 History (formulary)] Scopolamine 1 patch TRANSDERM Q72H 08/07/17 08/07/17 History Sennosides-Docusate Sodium 1 tab PEG/G-TUBE BID 08/07/17 08/07/17 History [Senokot-S] Warfarin [Coumadin] 3 mg PEG/G-TUBE DAILY 08/07/17 08/07/17 History Allergies Allergy/AdvReac Type Severity Reaction Status Date / Time meropenem [From Merrem] Allergy Rash/Hives Verified 08/07/17 10:07 Physical Examination - Vital Signs Vital Signs: Vital Signs Temp Pulse Pulse Resp BP Pulse Ox 08/09/17 22:28 96.7 F L 99 16 128/77 98 08/09/17 19:52 97.2 F L 84 16 115/70 08/09/17 16:17 96.8 F L 82 16 124/78 99 08/09/17 07:00 98.1 F 83 16 92/56 99 08/09/17 00:00 82 22 Intake and Output 08/09/17 08/09/17 08/09/17 06:59 14:59 22:59 Intake Total 540 Output Total 700 425 Balance -160 -425 Intake: Tube Feeding 540 Output: Urine 700 425 Uretheral (Stein) 700 Other: Voiding Method Indwelling Catheter Indwelling Catheter Indwelling Catheter Weight 57.153 kg - Constitutional General appearance: average body habitus, cooperative, mild distress, thin - EENT EENT: PERRL, mucous membranes moist - Respiratory Respiratory: lungs clear, normal breath sounds - Cardiovascular Cardiovascular: regular rate, normal S1, normal S2 Extremities: no peripheral edema bilaterally - Gastrointestinal Gastrointestinal: normoactive bowel sounds - Integumentary Integumentary: normal - Neurologic Cranial nerve examination: PERRL, EOMI, VFF, V1/V2/V3 grossly intact, face symmetric, tongue midline, intact gag reflex, intact corneal reflex, normal palatal elevation Speech examination: intact Sensorimotor examination: intact Motor examination - right side: 1/5: hip flexors, knee extensors, dorsiflexion, toe extension (EHL), plantarflexion, 2/5: triceps, wrist flexion, wrist extension, it sales executive, 3/5: biceps Motor examination - left side: 1/5: hip flexors, knee extensors, dorsiflexion, toe extension (EHL), plantarflexion, 2/5: triceps, wrist flexion, wrist extension, it sales executive, 3/5: biceps Detailed sensory examination: intact Reflex and gait examination: intact Reflexes: 1+: ankle, bicep, knee, tricep - Musculoskeletal Musculoskeletal: no pain - Psychiatric Psychiatric: mood/affect appropriate, cooperative Results - Laboratory Findings CBC and BMP: 08/07/17 10:37 08/07/17 10:37 Abnormal Lab Findings: Abnormal Labs 08/07/17 08/07/17 08/07/17 10:37 10:37 10:37 WBC 11.4 H Hgb 10.2 L Hct 35.6 L MCH 23.1 L MCHC 28.8 L RDW 17.5 H Plt Count 490 H Neutrophils # 8.5 H PT 20.8 H INR 2.2 H APTT BUN 29 H Glucose 106 H Total Bilirubin 0.1 L Alkaline Phosphatase 127 H Albumin 3.4 L Urine Protein Urine Blood Ur Leukocyte Esterase Urine RBC Urine WBC Urine WBC Clumps Urine Bacteria Urine Mucus 08/07/17 08/07/17 08/08/17 10:56 20:51 11:58 WBC Hgb Hct MCH MCHC RDW Plt Count Neutrophils # PT 23.5 H INR 2.4 H APTT 37.3 H 40.0 H BUN Glucose Total Bilirubin Alkaline Phosphatase Albumin Urine Protein 1+ H Urine Blood Moderate H Ur Leukocyte Esterase Large H Urine RBC 42 H Urine WBC >182 H Urine WBC Clumps Many H Urine Bacteria Moderate H Urine Mucus Rare H 08/09/17 08:48 WBC Hgb Hct MCH MCHC RDW Plt Count Neutrophils # PT 21.6 H INR 2.2 H APTT BUN Glucose Total Bilirubin Alkaline Phosphatase Albumin Urine Protein Urine Blood Ur Leukocyte Esterase Urine RBC Urine WBC Urine WBC Clumps Urine Bacteria Urine Mucus Assessment and Plan (1) Multiple sclerosis, primary progressive Current Visit: Yes Status: Acute SNOMED Code(s): 951019653 (2) Sepsis Current Visit: Yes Status: Acute SNOMED Code(s): 77264517 (3) Status post PICC central line placement Current Visit: Yes Status: Acute SNOMED Code(s): 522287557 (4) UTI (urinary tract infection) Current Visit: Yes Status: Acute SNOMED Code(s): 48288605 Plan: This patient is a 57-year-old right-handed white male who has a history of very advanced multiple sclerosis with end-stage disease. He has severe contractures mostly involving his lower extremities. He is currently been residing at [facility]. He was brought to the hospital before meals had a PICC line malfunction. This has subsequently been seen and treated by a interventional radiology. The patient is a very poor historian. He has very little verbal output. Neurology was consulted for further evaluation of possible underlying pain syndrome. The patient has such severe contractures in the lower extremities he would only be a candidate for intrathecal baclofen therapy. This would need to be titrated very slowly for the patient. Patient may follow-up in the outpatient neurology clinic as needed. At this point time we will continue close neurological follow-up of the patient. He is to continue on current antibiotics for treatment of underlying urinary tract infection. We'll await further recommendations from infectious disease in regards to his stage III wound ulcers in the sacral region. This patient's overall condition and prognosis at this time remains very guarded. We will continue close neurological follow-up with the patient during this admission. His overall prognosis at this time remains very guarded. Time with Patient: Greater than 30
[2017-08-10] MEDS: SODIUM CHLORIDE 0.9% 1,000 ML IV SCH ×3 (06:19→22:18)
[2017-08-10 06:39] LABS: Anion Gap 6 mmol/L; Blood Urea Nitrogen 17 mg/dL (9-20); Calcium 8.6 mg/dL (8.4-10.2); Carbon Dioxide 25 mmol/L (22-30); Chloride 110 mmol/L (98-107); Glucose 133 mg/dL (74-99); Non-African American GFR(MDRD) >60 (>60 ml/min/1.73 sqM); Potassium 4.1 mmol/L (3.5-5.1); Sodium 141 mmol/L (137-145)
[2017-08-10 06:41] LABS: Anisocytosis Slight; Basophils % (A) 0 %; CH 23.2; CHCM 28.2; Eosinophils # (A) 0.7 k/uL (0-0.7); Eosinophils % (A) 9 %; HCT 29.5 % (39.0-53.0); HDW 2.69; Hypochromasia Marked; Luc % (Auto) 1; Lymphocytes # (A) 1.2 k/uL (1.0-4.8); Lymphocytes % (A) 16 %; MCH 22.9 pg (25.0-35.0); MCHC 27.9 g/dL (31.0-37.0); MCV 82.2 fL (80.0-100.0); Mean Platelet Volume 7.9; Monocytes # (A) 0.6 k/uL (0-1.0); Monocytes % (A) 8 %; Neutrophils % (A) 66 %; RBC 3.59 m/uL (4.30-5.90); RDW 17.7 % (11.5-15.5); WBC 7.5 k/uL (3.8-10.6); WBC (Perox) 7.28
[2017-08-10 06:43] LABS: HGB 8.2 gm/dL (13.0-17.5)
--- NOTE | 2017-08-10 08:00 | CONS ---
CONSULTATION DATE OF SERVICE: 08/09/2017 REASON FOR CONSULTATION: 1. Catheter-associated urinary tract infection. 2. Sacral pressure ulcer. HISTORY OF PRESENT ILLNESS: The patient is a 55-year-old male who is a resident of [facility]. The patient has been sent to the ER at [facility] on 08/07/2017 for evaluation of the PICC line and possible UTI. The patient apparently has been treated in the facility with IV meropenem for underlying urinary tract infection; however, no information sent where the organism was. 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 Patient does have an underlying musculoskeletal disorder. The patient is nonverbal and interval history of the patient has been obtained from the review of the chart and talking to the nursing staff. Patient apparently was noticed to have some chills and the possibility of a rash due to the meropenem. The patient will be started on Zosyn and the urine is showing a gram negative. REVIEW OF SYSTEMS: Could not be reliably obtained. Positive points mentioned in HPI. PAST MEDICAL HISTORY: Significant for cognitive impairment, DVT, urinary retention requiring a Stein and sacral pressure ulcer. PAST SURGICAL HISTORY: Gastrotomy, PEG tube placement, recent PICC line placement. SOCIAL HISTORY: Patient currently is a resident of [facility]. No history of smoking , drinking or drug use. FAMILY HISTORY: Unable to obtain. ALLERGIES: MEROPENEM as per rash. MEDICATIONS: Include the patient is currently on [place], DuoNeb, vitamin C, vitamin D3, sulfate, Neurontin, mag-oxide, Lopressor, Theragran, Narcan, and Zofran, Protonic, tazobactam, scopolamine patch. PHYSICAL EXAMINATION: Blood pressure is 115/72 with a pulse of 64, temperature 97.2. He is 99% on room air. General description is a middle-aged male, lying in bed in no distress. No tachypnea or accessory muscle for respiration use. HEENT examination shows pallor, no scleral icterus. Oral mucosa dry. NECK: Trachea central, no thyromegaly. LUNGS: Unlabored breath, clear to auscultation anteriorly. No wheeze or crackle. HEART: S1, S2, regular rate and rhythm. ABDOMEN: Soft, no tenderness. No guarding or rigidity. EXTREMITIES: No edema of the feet. Examination of the sacroiliac did show stage III pressure ulcer with good granulation tissue and no surrounding swelling or redness or any foul smell or drainage. NEUROLOGICAL: Patient is awake. orientation couldn't be determined LABS: Hemoglobin is 10.0, white count of 11.4, BUN of 29, creatinine 1.03. Urine was positive. Urine culture with gram-negative, blood culture negative. DIAGNOSTIC IMPRESSION AND PLAN: 1. Patient with gram-negative catheter-associated urinary tract infection. Admitted to the hospital with some chills and possible allergy to the MEROPENEM. However, the patient is doing well on the Zosyn. Clinically doubt true Meropnem allergy. 2. Patient with stage III sacral wound with no evidence of any cellulitis. PLAN: 1. Recommend change of his Stein catheter and obtain a urine culture from the new Stein. 2. Antibiotic will be adjusted to Fortaz 2 g q.8 hours. 3. Depending on the clinical response as well as a repeat culture, will determine his discharge antibiotic. 4. As far as the stage III sacral wound, recommend Aquacel Silver dressing and packing of the wound, keep the area off the pressure. MMODL / IJN: [id number] / JOSE MIGUEL
[2017-08-10] MEDS: AMANTADINE HCL PEG/G-TUBE SCH ×2 (08:23→22:18)
[2017-08-10] MEDS: FERROUS SULFATE ORAL ELIXIR 300 MG/5 ML CUP PEG/G-TUBE SCH (08:24)
[2017-08-10] MEDS: CHOLECALCIFEROL 1,000 UNIT TAB PEG/G-TUBE SCH (08:24)
[2017-08-10] MEDS: ASCORBIC ACID 500 MG TAB PEG/G-TUBE SCH (08:24)
[2017-08-10] MEDS: PANTOPRAZOLE 40 MG/10 ML VIAL IV SCH (08:24)
[2017-08-10] MEDS: GABAPENTIN 400 MG CAP PO SCH ×3 (08:24→22:18)
[2017-08-10] MEDS: METOPROLOL TARTRATE 25 MG TAB PEG/G-TUBE SCH ×2 (08:25→22:19)
[2017-08-10] MEDS: MULTIVITAMINS, THERA 1 EACH TAB PEG/G-TUBE SCH (08:25)
[2017-08-10] MEDS: MAGNESIUM OXIDE 400 MG TAB PEG/G-TUBE SCH (08:25)
[2017-08-10] MEDS: HYDROcodone/APAP 7.5-325MG 1 EACH TAB PEG/G-TUBE PRN (11:15)
--- NOTE | 2017-08-10 11:45 | P.PN ---
Subjective Progress Note Date: 08/10/17 Progress note being dictated for Dr. Alvarez. Interval history:57-year-old male with a past history of musculoskeletal disorder and chronic lower extremity contractures and DVT and Coumadin, who is a poor historian and unable to give history presents due to concern for PICC line out of place as well as concern for sepsis due to possible UTI. This is all that is read on the report from the long term where the patient came from. The patient is unable to give a history. Does have a UTI per them as well and he's been receiving meropenem however they believe that he broke out in rash of this and they're concerned for an ALLERGY. Patient says no to pain when asked. Patient does say yes or no and he can understand but could not able to communicate. Unable to get further review of systems. 08/08/2017 Patient Out any history at this time. Patient does say yes or no. No acute overnight issues. IR was consulted for PICC line adjustment. Continued on IV antibiotics now. No fever no chills. Current medications reviewed. 08/09/2017 until gone IV antibiotics of Zosyn. scheduled for PICC line adjustment with interventional radiology today. ID Evaluation/recommendations of Stage III buttocks wound ulcer, pending. Urine culture currently reporting gram-negative bacilli. Afebrile. 08/10/2017 yesterday midline catheter removed, replaced with PICC line with interventional radiology. Tolerated procedure well. initial urine culture reporting pseudomonas aeruginosa, Stein catheter changed with repeat urine culture pending. Evaluated by the infectious disease, antibiotics adjusted to Fortaz, wound care recommendations for Aquacel Silver dressing/packing. Afebrile. Hemoglobin 8.2. Evaluated by neurology regarding progressive multiple sclerosis, pain management. Scheduled for EEG today. Objective - Vital Signs Vital signs: Vital Signs Temp 98.0 F 08/10/17 07:00 Pulse 86 08/10/17 08:00 Resp 18 08/10/17 08:00 BP 131/77 08/10/17 07:00 Pulse Ox 99 08/10/17 07:00 Intake & Output 08/09/17 08/10/17 08/10/17 18:59 06:59 18:59 Intake Total 540 810 480 Output Total 1125 Balance -585 810 480 Weight 57.153 kg 57.153 kg Intake: Tube Feeding 540 810 480 Output: Urine 1125 Uretheral (Stein) 700 Other: Voiding Method Indwelling Catheter Indwelling Catheter Indwelling Catheter - Exam Patient is lying in the bed comfortably, no acute distress, awake alert but minimally communicates HEENT: Normocephalic. Neck is supple. Pupils reactive. Nostrils clear. Oral cavity is moist. Ears reveal no drainage. Neck reveals no JVD, carotid bruits, or thyromegaly. CHEST EXAMINATION: Trachea is central. Symmetrical expansion. Lung prater clear to auscultation and percussion. CARDIAC: Normal S1, S2 with no gallops. No murmurs ABDOMEN: Soft. Bowel sounds normal. No organomegaly. No abdominal bruits. SKIN/Extremities: reveal no edema. No clubbing or cyanosis. Sacroiliac dressing clean dry and intact Neurologically awake, alert. Patient does have bilateral lower activity contractures Skin: No rash or skin lesions. Psychiatric: Could not be assessed Musculoskeletal: No joint swelling or deformity. Lower extremity contractures - Labs CBC & Chem 7: 08/10/17 06:12 08/10/17 06:12 Labs: Abnormal Lab Results - Last 24 Hours (Table) 08/10/17 08/10/17 Range/Units 06:12 06:12 RBC 3.59 L (4.30-5.90) m/uL Hgb 8.2 L D (13.0-17.5) gm/dL Hct 29.5 L (39.0-53.0) % MCH 22.9 L (25.0-35.0) pg MCHC 27.9 L (31.0-37.0) g/dL RDW 17.7 H (11.5-15.5) % Chloride 110 H (98-107) mmol/L Glucose 133 H (74-99) mg/dL Microbiology - Last 24 Hours (Table) 08/09/17 14:30 Catheter Tip Culture - Preliminary Catheter Tip 08/09/17 12:00 Urine Culture - Preliminary Urine,Catheterized 08/07/17 10:56 Urine Culture - Final Urine,Catheterized Pseudomonas aeruginosa 08/07/17 10:37 Blood Culture - Preliminary Blood No Growth after 48 hours Assessment and Plan Assessment: #1 acute urinary tract infection, pseudomonas aeruginosa; Stein change, urine culture repeated-results pending #2 recent urinary tract infection on meropenem at long term which has been discontinued due to possible ALLERGY reaction #3 midline catheter/PICC line displacement. Status post replacement with PICC line per IR #4 musculoskeletal disorder and contractures and quadriplegia #5 history of DVT on Coumadin #6 buttocks, stage III wound ulcer, resonant on admission Plan: Continue on current medication regime ,monitoring and symptomatic treatment. Maintain Fortaz. Discharge planning in progress pending final repeat/f/u urine culture results, post Stein change. PT/INR pending. Repeat labs ordered for a.m. The impression and plan of care has been dictated as directed. : I performed a history and examination of this patient, discussed the same with the dictator. I agree with the dictator's note ,documented as a scribe. Any additional findings or plans will be noted.
[2017-08-10 14:09] LABS: INR 1.8 (<1.2)
[2017-08-10 14:10] LABS: Prothrombin Time 17.7 sec (9.0-12.0)
[2017-08-10] MEDS: SCOPOLAMINE 1.5MG/72HR PATCH TRANSDERM SCH (16:09)
[2017-08-10] MEDS: WARFARIN 3 MG TAB PEG/G-TUBE SCH (16:09)
--- NOTE | 2017-08-10 20:52 | EEG ---
ELECTROENCEPHALOGRAM REPORT DATE OF EE08/10/2017. REFERRING PHYSICIAN: Dr. Carey. INTERPRETING PHYSICIAN: Dr. Rishi Abdul. ELECTROENCEPHALOGRAPHIC EXAMINATION REPORT: INDICATION FOR EXAMINATION: This patient is a 57-year-old male with history of advanced multiple sclerosis. The patient remains aphasic with very little verbal output. AGE: 57 EEG FINDINGS: A routine 21 channel awake digital EEG recording was accomplished utilizing the 10-20 international system with bipolar and referential montages. The background activity in the most alert resting state consists of a low to medium amplitude, fairly well- developed well sustained 5-6 Hz activity over the posterior head regions. This posterior rhythm attenuates to eye opening. There is a small amount of low amplitude 18-20 Hz beta activity seen maximally over the anterior head regions. Muscle and movement artifact was observed on a few occasions during the tracing. Hyperventilation was not performed. Photic stimulation at flash frequencies of 2-30 Hz produced a minimal occipital driving response. No epileptiform discharges were seen. IMPRESSION: This EEG is moderately abnormal in a diffuse fashion due to slowing of the EEG background. The EEG failed to reveal any focal, lateralized, or epileptiform abnormalities. Clinical correlation is recommended. MMODL / IJN: [id number] /
--- NOTE | 2017-08-10 21:36 | PN ---
PROGRESS NOTE DATE OF SERVICE: 08/10/2017. REASON FOR FOLLOWUP: 1. Pseudomonas catheter-associated urinary tract infection. 2. Stage III sacral pressure ulcer. INTERVAL HISTORY: The patient is afebrile. He is lying comfortably, tolerating his tube feeds. No nausea, vomiting or any diarrhea. Unable to provide any history. EXAMINATION: Blood pressure 122/72 with a pulse of 89, temperature of 98.8. He is 98% on room air. GENERAL DESCRIPTION: A middle-aged male lying in bed in no distress. RESPIRATORY SYSTEM: Unlabored breathing. Clear to auscultation anteriorly. HEART: S1, S2. Regular rate and rhythm. ABDOMEN: Soft. No tenderness. LABS: Hemoglobin 8.2, white count of 7.5 with a BUN of 17, creatinine 0.90. Urine showing a Pseudomonas aeruginosa. DIAGNOSTIC IMPRESSION AND PLAN: 1. Patient with Pseudomonas aeruginosa catheter-associated urinary tract infection for which the patient is currently on Fortaz. With no oral option available, he will continue Fortaz for 7-10 days to finish a course of therapy. 2. Patient with sacral wound, stage III pressure ulcer. Aquacel silver packing of the wound and keep the area off the pressure. MMODL / IJN: [id number] /
--- NOTE | 2017-08-10 21:54 | P.PN ---
Subjective Progress Note Date: 08/10/17 This patient is a 57-year-old right-handed white male who has a long-standing history of advanced multiple sclerosis. Patient is advanced age MS and apparently had been residing at the senior living in [place]. He was being treated for recent urinary tract infection and had a PICC line placed for treatment. Apparently his PIC line was displaced and he was transferred to the [facility] for evaluation. Patient had the PICC line be placed yesterday by interventional radiology. He has very advanced stage of multiple sclerosis. He has significant contracture of his lower extremities. He is nonverbal but does seem to follow some commands.the patient was questioned today whether he is having any significant pain symptoms. This evening he clearly states he is not in pain. He does have severe contractures of both lower extremities secondary to advance MS. He may be considered for intrathecal baclofen treatment for this condition. This should be further evaluated today neurosurgical or pain management clinic. The patient continues otherwise to do fairly well. He underwent a routine EEG which was reviewed and is only mildly slow. We will continue close neurological follow-up of this patient during this admission. He is awaiting transfer back to the [facility]. Objective - Vital Signs Vital signs: Vital Signs Temp 97.0 F L 08/10/17 15:11 Pulse 80 08/10/17 16:00 Resp 16 08/10/17 16:00 BP 119/70 08/10/17 15:11 Pulse Ox 100 08/10/17 16:19 Intake & Output 08/10/17 08/10/17 08/11/17 06:59 18:59 06:59 Intake Total 810 1740 Output Total 500 Balance 810 1240 Weight 57.153 kg 57.153 kg Intake: Tube Feeding 810 1680 Other 60 Output: Urine 500 Other: Voiding Method Indwelling Catheter Indwelling Catheter - Exam Physical examination: PHYSICAL EXAMINATION: Patient is resting comfortably in bed. VITAL SIGNS: Blood pressure is [119/70]. Heart rate is [80]. Respiration is [16] . Temperature is [97.0]. HEENT: Head is atraumatic, neck is supple, there were no carotid bruits. CHEST: Lungs are clear to auscultation and percussion. CARDIAC: S1, S2 normal rate and rhythm. There is no murmur. ABDOMEN: Soft and nontender. Bowel sounds are present. EXTREMITIES: There is no pedal edema. Peripheral pulses are present. Neurological examination: Patient's neurological examination is unchanged from yesterday. - Labs CBC & Chem 7: 08/10/17 06:12 08/10/17 06:12 Labs: Abnormal Lab Results - Last 24 Hours (Table) 08/10/17 08/10/17 08/10/17 Range/Units 06:12 06:12 13:46 RBC 3.59 L (4.30-5.90) m/uL Hgb 8.2 L D (13.0-17.5) gm/dL Hct 29.5 L (39.0-53.0) % MCH 22.9 L (25.0-35.0) pg MCHC 27.9 L (31.0-37.0) g/dL RDW 17.7 H (11.5-15.5) % PT 17.7 H (9.0-12.0) sec INR 1.8 H (<1.2) Chloride 110 H (98-107) mmol/L Glucose 133 H (74-99) mg/dL Microbiology - Last 24 Hours (Table) 08/07/17 10:37 Blood Culture - Preliminary Blood No Growth after 72 hours 08/09/17 14:30 Catheter Tip Culture - Preliminary Catheter Tip 08/09/17 12:00 Urine Culture - Preliminary Urine,Catheterized 08/07/17 10:56 Urine Culture - Final Urine,Catheterized Pseudomonas aeruginosa Assessment and Plan (1) Multiple sclerosis, primary progressive Current Visit: Yes Status: Acute SNOMED Code(s): 698843044 (2) Sepsis Current Visit: Yes Status: Acute SNOMED Code(s): 06176594 (3) Status post PICC central line placement Current Visit: Yes Status: Acute SNOMED Code(s): 619333372 (4) UTI (urinary tract infection) Current Visit: Yes Status: Acute SNOMED Code(s): 84239564 Plan: This patient is a 57-year-old right-handed white male who has a history of very advanced multiple sclerosis with end-stage disease. He has severe contractures mostly involving his lower extremities. He is currently been residing at [facility]. He was brought to the hospital before meals had a PICC line malfunction. This has subsequently been seen and treated by a interventional radiology. The patient is a very poor historian. He has very little verbal output. Neurology was consulted for further evaluation of possible underlying pain syndrome. The patient has such severe contractures in the lower extremities he would only be a candidate for intrathecal baclofen therapy. This would need to be titrated very slowly for the patient. Patient may follow-up in the outpatient neurology clinic as needed. At this point time we will continue close neurological follow-up of the patient. He is to continue on current antibiotics for treatment of underlying urinary tract infection. We'll await further recommendations from infectious disease in regards to his stage III wound ulcers in the sacral region. This patient's overall condition and prognosis at this time remains very guarded. the patient underwent routine EEG today which was reviewed. EEG is mildly slow with no evidence of epileptic discharges. The patient is being considered for possible return back to [facility] shortly. Once again he may be considered for intrathecal baclofen pump placement for treatment of his severe spasticity in the lower extremities. We will continue close neurological follow-up with the patient during this admission. His overall prognosis at this time remains very guarded.
[2017-08-11] MEDS: HYDROcodone/APAP 7.5-325MG 1 EACH TAB PEG/G-TUBE PRN ×4 (05:20→22:11)
[2017-08-11 07:24] LABS: INR 1.8 (<1.2); Prothrombin Time 16.9 sec (9.0-12.0)
[2017-08-11] MEDS: SODIUM CHLORIDE 0.9% 1,000 ML IV SCH ×2 (07:46→17:25)
[2017-08-11] MEDS: FERROUS SULFATE ORAL ELIXIR 300 MG/5 ML CUP PEG/G-TUBE SCH (10:04)
[2017-08-11] MEDS: AMANTADINE HCL PEG/G-TUBE SCH ×2 (10:04→21:08)
[2017-08-11] MEDS: METOPROLOL TARTRATE 25 MG TAB PEG/G-TUBE SCH ×2 (10:05→21:08)
[2017-08-11] MEDS: MAGNESIUM OXIDE 400 MG TAB PEG/G-TUBE SCH (10:05)
[2017-08-11] MEDS: GABAPENTIN 400 MG CAP PO SCH ×3 (10:05→21:08)
[2017-08-11] MEDS: CHOLECALCIFEROL 1,000 UNIT TAB PEG/G-TUBE SCH (10:05)
[2017-08-11] MEDS: PANTOPRAZOLE SODIUM 40 MG GRANULE PKT PEG/G-TUBE SCH (10:05)
[2017-08-11] MEDS: ASCORBIC ACID 500 MG TAB PEG/G-TUBE SCH (10:06)
[2017-08-11] MEDS: MULTIVITAMINS, THERA 1 EACH TAB PEG/G-TUBE SCH (11:58)
--- NOTE | 2017-08-11 14:11 | PN ---
PROGRESS NOTE DATE OF SERVICE: 08/11/2017 REASON FOR FOLLOWUP: 1. Pseudomonas catheter associated urinary tract infection. 2. Stage III sacral pressure ulcer. INTERVAL HISTORY: The patient is afebrile. He is breathing comfortably. Hemodynamically stable. Unable to provide reliable history. No nausea, vomiting, diarrhea per nursing staff. EXAMINATION: Blood pressure is 128/58 with a pulse of 98, temperature 98.3. He is 98% on room air. General description is a middle-aged male lying in bed in no distress. RESPIRATORY SYSTEM: Unlabored breathing. Clear to auscultation anteriorly. HEART: S1, S2. Regular rate and rhythm. ABDOMEN: Soft. No tenderness. LABS: Hemoglobin 8.8, white count 7.5 with a BUN of 17, creatinine 0.90. DIAGNOSTIC IMPRESSION AND PLAN: 1. Patient with Pseudomonas catheter associated urinary tract infection for which the patient continues on Fortaz. Duration of antibiotic should be 10 days with plan to discontinue the PICC line and antibiotic after that. 2. Patient with a stage III sacral wound. Local wound care with Aquacel Silver. Keep the area off the pressure. MMODL / IJN: [id number] /
[2017-08-11] MEDS: WARFARIN 3 MG TAB PEG/G-TUBE SCH (17:21)
--- NOTE | 2017-08-11 23:02 | P.PN ---
Subjective Progress Note Date: 08/11/17 Principal diagnosis: Urinary tract infection 57-year-old male with a past history of musculoskeletal disorder and chronic lower extremity contractures and DVT and Coumadin, who is a poor historian and unable to give history presents due to concern for PICC line out of place as well as concern for sepsis due to possible UTI. This is all that is read on the report from the shelter where the patient came from. The patient is unable to give a history. Does have a UTI per them as well and he's been receiving meropenem however they believe that he broke out in rash of this and they're concerned for an ALLERGY. Patient says no to pain when asked. Patient does say yes or no and he can understand but could not able to communicate. Unable to get further review of systems. 08/08/2017 Patient Out any history at this time. Patient does say yes or no. No acute overnight issues. IR was consulted for PICC line adjustment. Continued on IV antibiotics now. No fever no chills. 08/11/2017 Patient cannot provide any history. Repeat urine culture after changing Stein catheter showed gram-negative bacilli. Currently on ceftazidime. No fever no chills. No acute overnight issues. Current medications reviewed. Objective - Vital Signs Vital signs: Vital Signs Temp 97.9 F 08/11/17 15:00 Pulse 76 08/11/17 16:00 Resp 16 08/11/17 16:00 BP 182/90 08/11/17 15:00 Pulse Ox 99 08/11/17 15:00 Intake & Output 08/11/17 08/11/17 08/12/17 06:59 18:59 06:59 Intake Total 480 480 Output Total 1300 Balance -820 480 Weight 58 kg Intake: Tube Feeding 480 480 Output: Urine 1300 Uretheral (Stein) 1300 Other: Voiding Method Indwelling Catheter Indwelling Catheter - Exam Patient is lying in the bed comfortably, no acute distress, awake alert but cannot communicate HEENT: Normocephalic. Neck is supple. Pupils reactive. Nostrils clear. Oral cavity is moist. Ears reveal no drainage. Neck reveals no JVD, carotid bruits, or thyromegaly. CHEST EXAMINATION: Trachea is central. Symmetrical expansion. Lung prater clear to auscultation and percussion. CARDIAC: Normal S1, S2 with no gallops. No murmurs ABDOMEN: Soft. Bowel sounds normal. No organomegaly. No abdominal bruits. Extremities: reveal no edema. No clubbing or cyanosis Neurologically awake, alert. Patient does have bilateral lower activity contractures Skin: No rash or skin lesions. Psychiatric: Could not be assessed Musculoskeletal: No joint swelling or deformity. Lower extremity contractures - Labs CBC & Chem 7: 08/10/17 06:12 08/10/17 06:12 Labs: Abnormal Lab Results - Last 24 Hours (Table) 08/11/17 Range/Units 06:20 PT 16.9 H (9.0-12.0) sec INR 1.8 H (<1.2) Microbiology - Last 24 Hours (Table) 08/09/17 14:30 Catheter Tip Culture - Final Catheter Tip 08/07/17 10:37 Blood Culture - Preliminary Blood No Growth after 96 hours 08/09/17 12:00 Urine Culture - Preliminary Urine,Catheterized Gram Neg Bacilli Assessment and Plan Assessment: #1 acute urinary tract infection with Pseudomonas. Repeat urine culture showed gram-negative bacilli. #2 recent urinary tract infection on meropenem at shelter which has been discontinued due to possible ALLERGY reaction #3 PICC line displacement. #4 MS with lower extremity contractures #5 history of DVT on Coumadin Plan: Patient will be continued on antibiotics ceftazidime at this time. Will follow final repeat urine culture report. ID and neurology is following midline catheter removed, replaced with PICC line with interventional radiology. Will continue the supportive care and continue the home medications and follow closely. Further recommendations based on the clinical course.
[2017-08-12] MEDS: SODIUM CHLORIDE 0.9% 1,000 ML IV SCH ×2 (07:19→11:51)
[2017-08-12] MEDS: FERROUS SULFATE ORAL ELIXIR 300 MG/5 ML CUP PEG/G-TUBE SCH (08:51)
[2017-08-12] MEDS: PANTOPRAZOLE SODIUM 40 MG GRANULE PKT PEG/G-TUBE SCH (08:51)
[2017-08-12] MEDS: HYDROcodone/APAP 7.5-325MG 1 EACH TAB PEG/G-TUBE PRN ×2 (08:51→20:35)
[2017-08-12] MEDS: AMANTADINE HCL PEG/G-TUBE SCH ×2 (08:51→20:36)
[2017-08-12] MEDS: CHOLECALCIFEROL 1,000 UNIT TAB PEG/G-TUBE SCH (08:54)
[2017-08-12] MEDS: ASCORBIC ACID 500 MG TAB PEG/G-TUBE SCH (08:54)
[2017-08-12] MEDS: METOPROLOL TARTRATE 25 MG TAB PEG/G-TUBE SCH ×2 (08:54→20:36)
[2017-08-12] MEDS: GABAPENTIN 400 MG CAP PO SCH ×3 (08:54→20:36)
[2017-08-12] MEDS: MAGNESIUM OXIDE 400 MG TAB PEG/G-TUBE SCH (08:54)
[2017-08-12] MEDS ORDERED: ALTEPLASE 2 MG VIAL (CATHFLO) IV STA (09:14)
[2017-08-12] MEDS: MULTIVITAMINS, THERA 1 EACH TAB PEG/G-TUBE SCH (12:17)
--- NOTE | 2017-08-12 15:54 | P.PN ---
Subjective Progress Note Date: 08/12/17 This patient is a 57-year-old right-handed white male who has a long-standing history of advanced multiple sclerosis. Patient is advanced age MS and apparently had [facility] residing at the [facility] in [place]. He was being treated for recent urinary tract infection and had a PICC line placed for treatment. Apparently his PIC line was displaced and he was transferred to the [facility] for evaluation. Patient had the PICC line be placed by interventional radiology. His urine cultures came back positive for urinary tract infection with Pseudomonas. Patient did develop a ALLERGIC reaction to meropenem at the [facility]. Infectious disease is following the patient and is now currently on Ceftazidime for antibiotic coverage. He will require 10 days of treatment. He will then discontinue the PICC line and antibiotic after 10 days of treatment. We will await further recommendations from infectious disease. He has very advanced stage of multiple sclerosis. He has significant contracture of his lower extremities. He is nonverbal but does seem to follow some commands.the patient was questioned today whether he is having any significant pain symptoms. This evening he clearly states he is not in pain. He does have severe contractures of both lower extremities secondary to advance MS. He may be considered for intrathecal baclofen treatment for this condition. This should be further evaluated today neurosurgical or pain management clinic. The patient continues otherwise to do fairly well. He underwent a routine EEG which was reviewed and is only mildly slow. He does have a stage III sacral wound which is being treated by infectious disease. He should avoid pressure onto the sacral region. Apparently yesterday the patient' s sister was wondering if his pain medications and Neurontin could be increased. Clearly this can be titrated slightly higher to see if this helps for pain management. It is still unclear his degree of pain level as he is unable to communicate this assessment accurately to the nursing staff and to physicians. As noted he is most helpful treatment would be to consider intrathecal baclofen pump. This may be taken up with the [facility] once he is discharged as a possible option for him long-term. We will continue close neurological follow-up of this patient during this admission. He is awaiting transfer back to the [facility]. His overall prognosis in terms of his underlying advanced multiple sclerosis remains very guarded. Objective - Vital Signs Vital signs: Vital Signs Temp 98 F 08/12/17 07:00 Pulse 90 08/12/17 07:00 Resp 16 08/12/17 07:00 BP 131/88 08/12/17 07:00 Pulse Ox 99 08/12/17 08:00 Intake & Output 08/11/17 08/12/17 08/12/17 18:59 06:59 18:59 Intake Total 480 480 Output Total 800 Balance 480 -320 Weight 58 kg Intake: Tube Feeding 480 480 Output: Urine 800 Uretheral (Stein) 800 Other: Voiding Method Indwelling Catheter Indwelling Catheter - Exam Physical examination: PHYSICAL EXAMINATION: Patient is resting comfortably in bed. VITAL SIGNS: Blood pressure is [131/88]. Heart rate is [90]. Respiration is [16] . Temperature is [98.0]. HEENT: Head is atraumatic, neck is supple, there were no carotid bruits. CHEST: Lungs are clear to auscultation and percussion. CARDIAC: S1, S2 normal rate and rhythm. There is no murmur. ABDOMEN: Soft and nontender. Bowel sounds are present. EXTREMITIES: There is no pedal edema. Peripheral pulses are present. Neurological examination: Patient's neurological examination is unchanged from yesterday. Patient is resting comfortably. He remains in a contracted posture with his lower extremities in full flexion. He does not appear to be in any pain at this time. - Labs CBC & Chem 7: 08/10/17 06:12 08/10/17 06:12 Labs: Microbiology - Last 24 Hours (Table) 08/09/17 12:00 Urine Culture - Final Urine,Catheterized Pseudomonas aeruginosa 08/09/17 14:30 Catheter Tip Culture - Final Catheter Tip 08/07/17 10:37 Blood Culture - Preliminary Blood No Growth after 96 hours Assessment and Plan (1) Multiple sclerosis, primary progressive Current Visit: Yes Status: Acute SNOMED Code(s): 701968529 (2) Sepsis Current Visit: Yes Status: Acute SNOMED Code(s): 35246790 (3) Status post PICC central line placement Current Visit: Yes Status: Acute SNOMED Code(s): 255826867 (4) UTI (urinary tract infection) Current Visit: Yes Status: Acute SNOMED Code(s): 82093368 Plan: This patient is a 57-year-old right-handed white male who has a history of very advanced multiple sclerosis with end-stage disease. He has severe contractures mostly involving his lower extremities. He is currently been residing at [facility]. He was brought to the hospital before meals had a PICC line malfunction. This has subsequently been seen and treated by a interventional radiology. The patient is a very poor historian. He has very little verbal output. Neurology was consulted for further evaluation of possible underlying pain syndrome. The patient has such severe contractures in the lower extremities he would only be a candidate for intrathecal baclofen therapy. This would need to be titrated very slowly for the patient. Patient may follow-up in the outpatient neurology clinic as needed. At this point time we will continue close neurological follow-up of the patient. He is to continue on current antibiotics for treatment of underlying urinary tract infection. We'll await further recommendations from infectious disease in regards to his stage III wound ulcers in the sacral region. This patient's overall condition and prognosis at this time remains very guarded. the patient underwent routine EEG today which was reviewed. EEG is mildly slow with no evidence of epileptic discharges. The patient is being considered for possible return back to [facility] shortly. His sister apparently yesterday was wondering if his medications could be increased. Doubt that this would make much difference as he is on high dose currently. Once again he may be best suited for a intrathecal baclofen pump for treatment of his spasticity symptoms. We will continue close neurological follow-up with the patient during this admission. His overall prognosis at this time remains very guarded.
[2017-08-12] MEDS: WARFARIN 3 MG TAB PEG/G-TUBE SCH (16:46)
--- NOTE | 2017-08-12 22:26 | P.PN ---
Subjective Progress Note Date: 08/12/17 Principal diagnosis: Urinary tract infection 57-year-old male with a past history of musculoskeletal disorder and chronic lower extremity contractures and DVT and Coumadin, who is a poor historian and unable to give history presents due to concern for PICC line out of place as well as concern for sepsis due to possible UTI. This is all that is read on the report from the [facility]. The patient is unable to give a history. Does have a UTI per them as well and he's been receiving meropenem however they believe that he broke out in rash of this and they're concerned for an ALLERGY. Patient says no to pain when asked. Patient does say yes or no and he can understand but could not able to communicate. Unable to get further review of systems. 08/08/2017 Patient Out any history at this time. Patient does say yes or no. No acute overnight issues. IR was consulted for PICC line adjustment. Continued on IV antibiotics now. No fever no chills. 08/11/2017 Patient cannot provide any history. Repeat urine culture after changing Stein catheter showed gram-negative bacilli. Currently on ceftazidime. No fever no chills. No acute overnight issues. 08/12/2017 Patient denied any new complaints. No fever no chills. No overnight issues final urine culture report pending at this time Current medications reviewed. Objective - Vital Signs Vital signs: Vital Signs Temp 98.8 F 08/12/17 15:00 Pulse 90 08/12/17 16:00 Resp 16 08/12/17 16:00 BP 116/71 08/12/17 15:00 Pulse Ox 98 08/12/17 15:00 Intake & Output 08/12/17 08/12/17 08/13/17 06:59 18:59 06:59 Intake Total 480 720 Output Total 800 775 Balance -320 -55 Weight 59.5 kg Intake: Tube Feeding 480 720 Output: Urine 800 775 Uretheral (Stein) 800 Other: Voiding Method Indwelling Catheter Indwelling Catheter - Exam Patient is lying in the bed comfortably, no acute distress, awake alert but cannot communicate HEENT: Normocephalic. Neck is supple. Pupils reactive. Nostrils clear. Oral cavity is moist. Ears reveal no drainage. Neck reveals no JVD, carotid bruits, or thyromegaly. CHEST EXAMINATION: Trachea is central. Symmetrical expansion. Lung prater clear to auscultation and percussion. CARDIAC: Normal S1, S2 with no gallops. No murmurs ABDOMEN: Soft. Bowel sounds normal. No organomegaly. No abdominal bruits. Extremities: reveal no edema. No clubbing or cyanosis Neurologically awake, alert. Patient does have bilateral lower activity contractures Skin: No rash or skin lesions. Psychiatric: Could not be assessed Musculoskeletal: No joint swelling or deformity. Lower extremity contractures - Labs CBC & Chem 7: 08/10/17 06:12 08/10/17 06:12 Labs: Microbiology - Last 24 Hours (Table) 08/07/17 10:37 Blood Culture - Preliminary Blood No Growth after 120 hours 08/09/17 12:00 Urine Culture - Final Urine,Catheterized Pseudomonas aeruginosa 08/09/17 14:30 Catheter Tip Culture - Final Catheter Tip Assessment and Plan Assessment: #1 acute urinary tract infection with Pseudomonas. Repeat urine culture showed gram-negative bacilli. #2 recent urinary tract infection on meropenem at halfway which has been discontinued due to possible ALLERGY reaction #3 PICC line displacement. #4 MS with lower extremity contractures #5 history of DVT on Coumadin Plan: Patient will be continued on antibiotics ceftazidime at this time. Will follow final repeat urine culture report. ID and neurology is following midline catheter removed, replaced with PICC line with interventional radiology. Will continue the supportive care and continue the home medications and follow closely. Further recommendations based on the clinical course.
[2017-08-13] MEDS: SODIUM CHLORIDE 0.9% 1,000 ML IV SCH ×3 (04:13→21:47)
--- NOTE | 2017-08-13 05:17 | PN ---
PROGRESS NOTE DATE OF SERVICE: 08/12/2017 REASON FOR FOLLOWUP: 1. Pseudomonas catheter associated urinary tract infection. 2. Stage III sacral ulcer. INTERVAL HISTORY: The patient is afebrile. He is breathing comfortably. Hemodynamically stable. No chest pain, shortness of breath or cough. Unable to provide a reliable history though. PHYSICAL EXAMINATION: On examination, blood pressure 145/80 with a pulse of 85, temperature of 96.6. He is 99% on room air. General description is a middle-aged male lying in bed in no distress. RESPIRATORY SYSTEM: Unlabored breathing, clear to auscultation anteriorly. HEART: S1, S2. Regular rate and rhythm. ABDOMEN: Soft, no tenderness. LABS: Hemoglobin 8.2 with a white count 7.5, BUN of 17, creatinine 0.90. DIAGNOSTIC IMPRESSION AND PLAN: 1. Patient with Pseudomonas catheter-associated urinary tract infection. His Stein catheter has been changed. Repeat urine culture with the same pathogen. Will recommend giving the patient Fortaz for another 7 days to finish a course of therapy. 2. Patient with stage III sacral wound. Local wound care with Aquacel Silver packing and close outpatient followup. MMODL / IJN: [id number] /
[2017-08-13] MEDS: METOPROLOL TARTRATE 25 MG TAB PEG/G-TUBE SCH ×2 (08:37→21:49)
[2017-08-13] MEDS: FERROUS SULFATE ORAL ELIXIR 300 MG/5 ML CUP PEG/G-TUBE SCH (08:38)
[2017-08-13] MEDS: PANTOPRAZOLE SODIUM 40 MG GRANULE PKT PEG/G-TUBE SCH (08:38)
[2017-08-13] MEDS: CHOLECALCIFEROL 1,000 UNIT TAB PEG/G-TUBE SCH (08:38)
[2017-08-13] MEDS: AMANTADINE HCL PEG/G-TUBE SCH ×2 (08:38→21:50)
[2017-08-13] MEDS: ASCORBIC ACID 500 MG TAB PEG/G-TUBE SCH (08:38)
[2017-08-13] MEDS: GABAPENTIN 400 MG CAP PO SCH ×3 (08:38→21:50)
[2017-08-13] MEDS: MAGNESIUM OXIDE 400 MG TAB PEG/G-TUBE SCH (08:39)
--- NOTE | 2017-08-13 11:12 | PN ---
PROGRESS NOTE DATE OF SERVICE: 08/13/2017. REASON FOR FOLLOWUP: 1. Pseudomonas catheter associated urinary tract infection. 2. Stage III sacral wound. INTERVAL HISTORY: The patient is afebrile. Has been breathing comfortably. No chest pain. Shortness of breath or cough. No nausea, vomiting or diarrhea. EXAMINATION: Blood pressure is 148/80 with a pulse of 85, temperature of 99. He is 96%. General description is a middle-aged male lying in bed in no distress. Respiratory system unlabored breathing. Clear to auscultation anteriorly. Heart S1, S2 regular rate and rhythm. Abdomen soft, no tenderness. LABS: No new labs have been obtained today. Blood culture has been negative. DIAGNOSTIC IMPRESSION AND PLAN: 1. Patient with Pseudomonas aeruginosa, catheter associated urinary tract infection. Stein catheter has already been changed. He is currently on Fortaz and will continue for another week to finish a course of therapy. 2. Sacral wound. Local wound care with Aquacel Silver packing. Keep the area off the pressure. MMODL / IJN: [id number] /
[2017-08-13] MEDS: MULTIVITAMINS, THERA 1 EACH TAB PEG/G-TUBE SCH (11:42)
[2017-08-13 14:38] VITALS: BMI 20.5
[2017-08-13] MEDS: SCOPOLAMINE 1.5MG/72HR PATCH TRANSDERM SCH (14:47)
[2017-08-13] MEDS: HYDROcodone/APAP 7.5-325MG 1 EACH TAB PEG/G-TUBE PRN (15:55)
[2017-08-13] MEDS: WARFARIN 3 MG TAB PEG/G-TUBE SCH (17:08)
--- NOTE | 2017-08-13 23:22 | P.PN ---
Subjective Progress Note Date: 08/13/17 Principal diagnosis: Urinary tract infection 57-year-old male with a past history of musculoskeletal disorder and chronic lower extremity contractures and DVT and Coumadin, who is a poor historian and unable to give history presents due to concern for PICC line out of place as well as concern for sepsis due to possible UTI. This is all that is read [facility] The patient is unable to give a history. Does have a UTI per them as well and he's been receiving meropenem however they believe that he broke out in rash of this and they're concerned for an ALLERGY. Patient says no to pain when asked. Patient does say yes or no and he can understand but could not able to communicate. Unable to get further review of systems. 08/08/2017 Patient Out any history at this time. Patient does say yes or no. No acute overnight issues. IR was consulted for PICC line adjustment. Continued on IV antibiotics now. No fever no chills. 08/11/2017 Patient cannot provide any history. Repeat urine culture after changing Stein catheter showed gram-negative bacilli. Currently on ceftazidime. No fever no chills. No acute overnight issues. 08/12/2017 Patient denied any new complaints. No fever no chills. No overnight issues final urine culture report pending at this time 08/13/2017 Patient is depleted urine cultures showed Pseudomonas. Continue with ceftazidime for 7 more days per ID. Otherwise patient cannot provide any history. Denied any complaints of chest pain or shortness of breath. No other acute overnight issues. Current medications reviewed. Objective - Vital Signs Vital signs: Vital Signs Temp 98.4 F 08/13/17 14:49 Pulse 107 H 08/13/17 15:28 Resp 16 08/13/17 15:28 BP 151/91 08/13/17 14:49 Pulse Ox 97 08/13/17 14:49 Intake & Output 08/13/17 08/13/17 08/14/17 06:59 18:59 06:59 Intake Total 720 1200 Output Total 300 1575 Balance 420 -375 Weight 57.5 kg Intake: Tube Feeding 720 1200 Output: Urine 300 1575 Uretheral (Stein) 300 800 Other: Voiding Method Indwelling Catheter Indwelling Catheter # Voids 1 - Exam Patient is lying in the bed comfortably, no acute distress, awake alert but cannot communicate HEENT: Normocephalic. Neck is supple. Pupils reactive. Nostrils clear. Oral cavity is moist. Ears reveal no drainage. Neck reveals no JVD, carotid bruits, or thyromegaly. CHEST EXAMINATION: Trachea is central. Symmetrical expansion. Lung prater clear to auscultation and percussion. CARDIAC: Normal S1, S2 with no gallops. No murmurs ABDOMEN: Soft. Bowel sounds normal. No organomegaly. No abdominal bruits. Extremities: reveal no edema. No clubbing or cyanosis Neurologically awake, alert. Patient does have bilateral lower activity contractures Skin: No rash or skin lesions. Psychiatric: Could not be assessed Musculoskeletal: No joint swelling or deformity. Lower extremity contractures - Labs CBC & Chem 7: 08/10/17 06:12 08/10/17 06:12 Labs: Microbiology - Last 24 Hours (Table) 08/07/17 10:37 Blood Culture - Final Blood No Growth after 144 hours Assessment and Plan Assessment: #1 acute urinary tract infection with Pseudomonas. Repeat urine culture showed Pseudomonas. #2 [facility] which has been discontinued due to possible ALLERGY reaction #3 PICC line displacement. #4 MS with lower extremity contractures #5 history of DVT on Coumadin Plan: Patient will be continued on antibiotics ceftazidime at this time. 7 more days as per ID resolved.ID and neurology is following midline catheter removed, replaced with PICC line with interventional radiology. Will continue the supportive care and continue the home medications and follow closely. Anticipate discharge to extended care facility with IV antibiotics tomorrow
[2017-08-14] MEDS: SODIUM CHLORIDE 0.9% 1,000 ML IV SCH ×2 (06:00→16:18)
[2017-08-14 07:25] VITALS: RESP 20
[2017-08-14] MEDS: AMANTADINE HCL PEG/G-TUBE SCH ×2 (09:55→20:06)
[2017-08-14] MEDS: ASCORBIC ACID 500 MG TAB PEG/G-TUBE SCH (09:55)
[2017-08-14] MEDS: CHOLECALCIFEROL 1,000 UNIT TAB PEG/G-TUBE SCH (09:57)
[2017-08-14] MEDS: FERROUS SULFATE ORAL ELIXIR 300 MG/5 ML CUP PEG/G-TUBE SCH (09:59)
[2017-08-14] MEDS: GABAPENTIN 400 MG CAP PO SCH ×2 (10:00→16:18)
[2017-08-14] MEDS: MAGNESIUM OXIDE 400 MG TAB PEG/G-TUBE SCH (10:02)
[2017-08-14] MEDS: METOPROLOL TARTRATE 25 MG TAB PEG/G-TUBE SCH ×2 (10:05→20:06)
[2017-08-14] MEDS: PANTOPRAZOLE SODIUM 40 MG GRANULE PKT PEG/G-TUBE SCH (10:07)
[2017-08-14] MEDS: HYDROcodone/APAP 7.5-325MG 1 EACH TAB PEG/G-TUBE PRN (10:21)
[2017-08-14] MEDS: MULTIVITAMINS, THERA 1 EACH TAB PEG/G-TUBE SCH (12:05)
--- NOTE | 2017-08-14 13:23 | PN ---
PROGRESS NOTE DATE OF SERVICE: 08/14/2017. REASON FOR FOLLOWUP: 1. Pseudomonas catheter associated urinary tract infection. 2. Stage III sacral wound. INTERVAL HISTORY: The patient is afebrile. He is breathing comfortably. Does not have any distress. No nausea, vomiting. No abdominal pain or any diarrhea. EXAMINATION: Blood pressure 146/82 with a pulse of 85, temperature 980.7. He is 97% on room air. General description is a middle-aged male lying in bed in no distress. RESPIRATORY SYSTEM: Unlabored breathing. Clear to auscultation anteriorly. HEART: S1, S2. Regular rate and rhythm. ABDOMEN: Soft, no tenderness. LABS: No new labs have been obtained today. DIAGNOSTIC IMPRESSION AND PLAN: 1. Patient with Pseudomonas aeruginosa catheter-associated urinary tract infection. The patient seems to have clinical improvement. He will continue with the IV Fortaz for another 7 days to finish a course of therapy. 2. Sacral wound stage III. No evidence of cellulitis. Local wound care with Aquacel Silver packing. Keep the area off the pressure. MMODL / IJN: [id number] /
--- NOTE | 2017-08-14 14:10 | P.DS ---
Providers Date of admission: 08/07/17 14:03 Expected date of discharge: 08/14/17 Attending physician: Judi Carey Consults: 08/09/17 10:01 Consult Physician Routine Consulting Provider: Sonal Farah Consult Reason/Comments: wound care Do you want consulting provider notified?: Yes 08/09/17 12:59 Consult Physician Routine Consulting Provider: Rishi Abdul Consult Reason/Comments: MS, pain management Do you want consulting provider notified?: Yes Primary care physician: Brenden Austin AT [facility] Hospital Course: Final Diagnoses: #1 acute urinary tract infection with Pseudomonas,catheter aqssociated #2 recent urinary tract infection on meropenem at [facility] which has been discontinued due to possible ALLERGY reaction #3 midline catheter displacement, replaced with picc line. #4 MS with lower extremity contractures, functional quadriplegia. #5 history of DVT on Coumadin #6 stage III sacral wound ulcer, present on admission Hospital course: This a 57-year-old male resident of [facility] with a past history of musculoskeletal disorder and chronic lower extremity contractures and DVT on Coumadin, poor historian,presents due to concern for displaced midline catheter as well as concern for sepsis due to possible UTI. Data obtained from the [facility] report. Admitted with Pseudomonas catheter associated UTI, stage III sacral wound. Previously had received Merrem but [facility] concerned of possible ALLERGY as patient broke out in a rash Evaluated by infectious disease, maintained on IV antibiotics. Significant clinical improvement. Dilated by neurology regarding MS and generalized pain, spasms. Follow-up with neurology regarding potential intrathecal baclofen pump for spasticity. Cleared by consults for discharge. Patient is being discharged to [facility] that'll condition with guarded prognosis. Microbiology 08/07/17 10:37 Blood Blood Culture - Final No Growth after 144 hours 08/09/17 12:00 Urine,Catheterized Urine Culture - Final Pseudomonas aeruginosa 08/09/17 14:30 Catheter Tip Catheter Tip Culture - Final 08/07/17 10:56 Urine,Catheterized Urine Culture - Final Pseudomonas aeruginosa The impression and plan of care has been dictated as directed. : I performed a history and examination of this patient, discussed the same with the dictator. I agree with the dictator's note ,documented as a scribe. Any additional findings or plans will be noted. Patient Condition at Discharge: Stable Plan - Discharge Summary Discharge Rx Participant: No New Discharge Prescriptions: New Ceftazidime [Fortaz] 2 gm IV Q8H #21 vial Continue Sennosides-Docusate Sodium [Senokot-S] 1 tab PEG/G-TUBE BID Scopolamine 1 patch TRANSDERM Q72H Meropenem [Merrem] 1 gm IVPB Q8H Multivitamins, Thera [Multivitamin (formulary)] 1 tab PEG/G-TUBE DAILY Metoprolol Tartrate [Lopressor] 25 mg PEG/G-TUBE Q12H Magnesium Oxide [Magox 400] 400 mg PEG/G-TUBE DAILY Jevity 1.5 Sherman Liquid 2 can PEG/G-TUBE TID Ipratropium-Albuterol Nebulize [Duoneb 0.5 mg-3 mg/3 ml Soln] 3 ml INHALATION RT-Q4H PRN PRN Reason: SOB/Wheezing Gabapentin 250mg/5ml 400 mg PEG/G-TUBE Q8H Ferrous Sulfate Oral Elixir [Feosol Liquid] 300 mg PEG/G-TUBE DAILY Esomeprazole Magnesium Packet 20 mg PEG/G-TUBE DAILY Warfarin [Coumadin] 3 mg PEG/G-TUBE DAILY Cholecalciferol (Vitamin D3) [Children's Vitamin D3] 1,000 unit PEG/G-TUBE DAILY Ascorbic Acid 100 mg PEG/G-TUBE DAILY Amantadine Syrup 50mg/5mg 100 mg PEG/G-TUBE Q12H HYDROcodone/APAP 7.5-325MG [[place] 7.5-325] 1 tab PEG/G-TUBE Q4H PRN #20 tab PRN Reason: Pain Discharge Medication List Amantadine Syrup 50mg/5mg 100 mg PEG/G-TUBE Q12H 08/07/17 [History] Ascorbic Acid 100 mg PEG/G-TUBE DAILY 08/07/17 [History] Cholecalciferol (Vitamin D3) [Children's Vitamin D3] 1,000 unit PEG/G-TUBE DAILY 08/07/17 [History] Esomeprazole Magnesium Packet 20 mg PEG/G-TUBE DAILY 08/07/17 [History] Ferrous Sulfate Oral Elixir [Feosol Liquid] 300 mg PEG/G-TUBE DAILY 08/07/17 [ History] Gabapentin 250mg/5ml 400 mg PEG/G-TUBE Q8H 08/07/17 [History] Ipratropium-Albuterol Nebulize [Duoneb 0.5 mg-3 mg/3 ml Soln] 3 ml INHALATION RT -Q4H PRN 08/07/17 [History] Jevity 1.5 Sherman Liquid 2 can PEG/G-TUBE TID 08/07/17 [History] Magnesium Oxide [Magox 400] 400 mg PEG/G-TUBE DAILY 08/07/17 [History] Meropenem [Merrem] 1 gm IVPB Q8H 08/07/17 [History] Metoprolol Tartrate [Lopressor] 25 mg PEG/G-TUBE Q12H 08/07/17 [History] Multivitamins, Thera [Multivitamin (formulary)] 1 tab PEG/G-TUBE DAILY 08/07/17 [History] Scopolamine 1 patch TRANSDERM Q72H 08/07/17 [History] Sennosides-Docusate Sodium [Senokot-S] 1 tab PEG/G-TUBE BID 08/07/17 [History] Warfarin [Coumadin] 3 mg PEG/G-TUBE DAILY 08/07/17 [History] Ceftazidime [Fortaz] 2 gm IV Q8H #21 vial 08/14/17 [Rx] HYDROcodone/APAP 7.5-325MG [[place] 7.5-325] 1 tab PEG/G-TUBE Q4H PRN #20 tab [Rx] Follow up Appointment(s)/Referral(s): Matteo Hernandez MD [REFERRING] - 3 Days (while at [facility]) Rishi Abdul MD [STAFF PHYSICIAN] - 2 Weeks Brenden Olivares DO [Primary Care Provider] - 1 Week (after dc from formerly [facility]) Patient Instructions/Handouts: Urinary Tract Infection in Men (DC), Sepsis (GEN ) Activity/Diet/Wound Care/Special Instructions: [facility] Local wound care with Aquacel silver packingnd care with Aquacel silver packing as advised per ID cbc,bmp in 3 days with results to PCP & Dr. Farah Daily PT INR.
--- NOTE | 2017-08-14 14:27 | P.PN ---
Subjective Progress Note Date: 08/13/17 This patient is a 57-year-old right-handed white male who has a long-standing history of advanced multiple sclerosis. Patient is advanced age MS and [facility] [place]. He was being treated for recent urinary tract infection and had a PICC line placed for treatment. Apparently his PIC line was displaced and he was transferred to the [facility] for evaluation. Patient had the PICC line be placed by interventional radiology. His urine cultures came back positive for urinary tract infection with Pseudomonas. Patient did develop a ALLERGIC reaction to meropenem at the [facility]. Infectious disease is following the patient and is now currently on Ceftazidime for antibiotic coverage. He will require 10 days of treatment. He will then discontinue the PICC line and antibiotic after 10 days of treatment. We will await further recommendations from infectious disease. He has very advanced stage of multiple sclerosis. He has significant contracture of his lower extremities. He is nonverbal but does seem to follow some commands.the patient was questioned today whether he is having any significant pain symptoms. This evening he clearly states he is not in pain. He does have severe contractures of both lower extremities secondary to advance MS. He may be considered for intrathecal baclofen treatment for this condition. This should be further evaluated today neurosurgical or pain management clinic. The patient continues otherwise to do fairly well. He underwent a routine EEG which was reviewed and is only mildly slow. He does have a stage III sacral wound which is being treated by infectious disease. He should avoid pressure onto the sacral region. Apparently yesterday the patient' s sister was wondering if his pain medications and Neurontin could be increased. Clearly this can be titrated slightly higher to see if this helps for pain management. It is still unclear his degree of pain level as he is unable to communicate this assessment accurately to the nursing staff and to physicians. As noted he is most helpful treatment would be to consider intrathecal baclofen pump. This may be [facility] with the [facility] once he is discharged as a possible option for him long-term. We will continue close neurological follow-up of this patient during this admission. He is awaiting transfer back to the [facility]. His overall prognosis in terms of his underlying advanced multiple sclerosis remains very guarded. Objective - Vital Signs Vital signs: Vital Signs Temp 98.4 F 08/13/17 14:49 Pulse 107 H 08/13/17 15:28 Resp 16 08/13/17 15:28 BP 151/91 08/13/17 14:49 Pulse Ox 97 08/13/17 14:49 Intake & Output 08/13/17 08/13/17 08/14/17 06:59 18:59 06:59 Intake Total 720 1200 Output Total 300 1575 Balance 420 -375 Weight 57.5 kg Intake: Tube Feeding 720 1200 Output: Urine 300 1575 Uretheral (Stein) 300 800 Other: Voiding Method Indwelling Catheter Indwelling Catheter # Voids 1 - Exam Physical examination: PHYSICAL EXAMINATION: Patient is resting comfortably in bed. VITAL SIGNS: Blood pressure is [151/91]. Heart rate is [107]. Respiration is [16 ]. Temperature is [98.4]. HEENT: Head is atraumatic, neck is supple, there were no carotid bruits. CHEST: Lungs are clear to auscultation and percussion. CARDIAC: S1, S2 normal rate and rhythm. There is no murmur. ABDOMEN: Soft and nontender. Bowel sounds are present. EXTREMITIES: There is no pedal edema. Peripheral pulses are present. Neurological examination: Patient's neurological examination is unchanged from yesterday. Patient is resting comfortably. He remains in a contracted posture with his lower extremities in full flexion. He does not appear to be in any pain at this time. - Labs CBC & Chem 7: 08/10/17 06:12 08/10/17 06:12 Labs: Microbiology - Last 24 Hours (Table) 08/07/17 10:37 Blood Culture - Final Blood No Growth after 144 hours Assessment and Plan (1) Multiple sclerosis, primary progressive Current Visit: Yes Status: Acute SNOMED Code(s): 479357301 (2) Sepsis Current Visit: Yes Status: Acute SNOMED Code(s): 54724939 (3) Status post PICC central line placement Current Visit: Yes Status: Acute SNOMED Code(s): 091082488 (4) UTI (urinary tract infection) Current Visit: Yes Status: Acute SNOMED Code(s): 85992580 Plan: This patient is a 57-year-old right-handed white male who has a history of very advanced multiple sclerosis with end-stage disease. He has severe contractures mostly involving his lower extremities. He is currently been residing at [facility]. He was brought to the hospital before meals had a PICC line malfunction. This has subsequently been seen and treated by a interventional radiology. The patient is a very poor historian. He has very little verbal output. Neurology was consulted for further evaluation of possible underlying pain syndrome. The patient has such severe contractures in the lower extremities he would only be a candidate for intrathecal baclofen therapy. This would need to be titrated very slowly for the patient. Patient may follow-up in the outpatient neurology clinic as needed. At this point time we will continue close neurological follow-up of the patient. He is to continue on current antibiotics for treatment of underlying urinary tract infection. We'll await further recommendations from infectious disease in regards to his stage III wound ulcers in the sacral region. This patient's overall condition and prognosis at this time remains very guarded. the patient underwent routine EEG today which was reviewed. EEG is mildly slow with no evidence of epileptic discharges. The patient is being considered for possible return back to ECF shortly. His sister apparently yesterday was wondering if his medications could be increased. Doubt that this would make much difference as he is on high dose currently. Once again he may be best suited for a intrathecal baclofen pump for treatment of his spasticity symptoms. Patient is being considered for discharge back to his ECF tomorrow. He had a slight temperature this evening and that delayed his discharge. We will continue close neurological follow-up with the patient during this admission. His overall prognosis at this time remains very guarded.
--- NOTE | 2017-08-14 14:31 | P.PN ---
Subjective Progress Note Date: 08/14/17 This patient is a 57-year-old right-handed white male who has a long-standing history of advanced multiple sclerosis. Patient is advanced age MS and apparently had been residing at the detention in [place]. He was being treated for recent urinary tract infection and had a PICC line placed for treatment. Apparently his PIC line was displaced and he was transferred to the [facility] for evaluation. Patient had the PICC line be placed by interventional radiology. His urine cultures came back positive for urinary tract infection with Pseudomonas. Patient did develop a ALLERGIC reaction to meropenem at the detention. Infectious disease is following the patient and is now currently on Ceftazidime for antibiotic coverage. He will require 10 days of treatment. He will then discontinue the PICC line and antibiotic after 10 days of treatment. We will await further recommendations from infectious disease. He has very advanced stage of multiple sclerosis. He has significant contracture of his lower extremities. He is nonverbal but does seem to follow some commands.the patient was questioned today whether he is having any significant pain symptoms. This evening he clearly states he is not in pain. He does have severe contractures of both lower extremities secondary to advance MS. He may be considered for intrathecal baclofen treatment for this condition. This should be further evaluated today neurosurgical or pain management clinic. The patient continues otherwise to do fairly well. He underwent a routine EEG which was reviewed and is only mildly slow. He does have a stage III sacral wound which is being treated by infectious disease. He should avoid pressure onto the sacral region. Apparently yesterday the patient' s sister was wondering if his pain medications and Neurontin could be increased. Clearly this can be titrated slightly higher to see if this helps for pain management. It is still unclear his degree of pain level as he is unable to communicate this assessment accurately to the nursing staff and to physicians. As noted he is most helpful treatment would be to consider intrathecal baclofen pump. This may be taken up with the detention once he is discharged as a possible option for him long-term. We will continue close neurological follow-up of this patient during this admission. He is awaiting transfer back to the [facility] later today. There is been no significant change in his overall neurological status since admission. He does continue to have some diffuse nonspecific pain complaints. He should be followed up with his specialist at the detention. His overall prognosis in terms of his underlying advanced multiple sclerosis remains very guarded. Objective - Vital Signs Vital signs: Vital Signs Temp 98.7 F 08/14/17 07:00 Pulse 85 08/14/17 08:00 Resp 20 08/14/17 08:00 BP 146/82 08/14/17 07:00 Pulse Ox 97 08/14/17 07:00 Intake & Output 08/13/17 08/14/17 08/14/17 18:59 06:59 18:59 Intake Total 1200 480 960 Output Total 1575 700 300 Balance -375 -220 660 Weight 57.5 kg 56 kg Intake: Oral 0 Tube Feeding 1200 480 960 Output: Urine 1575 700 300 Uretheral (Stein) 800 700 200 Other: Voiding Method Indwelling Catheter Indwelling Catheter Indwelling Catheter # Voids 1 1 # Bowel Movements 1 - Exam Physical examination: PHYSICAL EXAMINATION: Patient is resting comfortably in bed. VITAL SIGNS: Blood pressure is [132/79]. Heart rate is [90]. Respiration is [16] . Temperature is [98.4]. HEENT: Head is atraumatic, neck is supple, there were no carotid bruits. CHEST: Lungs are clear to auscultation and percussion. CARDIAC: S1, S2 normal rate and rhythm. There is no murmur. ABDOMEN: Soft and nontender. Bowel sounds are present. EXTREMITIES: There is no pedal edema. Peripheral pulses are present. Neurological examination: Patient's neurological examination is unchanged from yesterday. Patient is resting comfortably. He remains in a contracted posture with his lower extremities in full flexion. He does not appear to be in any pain at this time. - Labs CBC & Chem 7: 08/10/17 06:12 08/10/17 06:12 Labs: Microbiology - Last 24 Hours (Table) 08/07/17 10:37 Blood Culture - Final Blood No Growth after 144 hours Assessment and Plan (1) Multiple sclerosis, primary progressive Current Visit: Yes Status: Acute SNOMED Code(s): 069313622 (2) Sepsis Current Visit: Yes Status: Acute SNOMED Code(s): 67480654 (3) Status post PICC central line placement Current Visit: Yes Status: Acute SNOMED Code(s): 607852160 (4) UTI (urinary tract infection) Current Visit: Yes Status: Acute SNOMED Code(s): 96293396 Plan: This patient is a 57-year-old right-handed white male who has a history of very advanced multiple sclerosis with end-stage disease. He has severe contractures mostly involving his lower extremities. He is currently been residing at [facility]. He was brought to the hospital before meals had a PICC line malfunction. This has subsequently been seen and treated by a interventional radiology. The patient is a very poor historian. He has very little verbal output. Neurology was consulted for further evaluation of possible underlying pain syndrome. The patient has such severe contractures in the lower extremities he would only be a candidate for intrathecal baclofen therapy. This would need to be titrated very slowly for the patient. Patient may follow-up in the outpatient neurology clinic as needed. At this point time we will continue close neurological follow-up of the patient. He is to continue on current antibiotics for treatment of underlying urinary tract infection. We'll await further recommendations from infectious disease in regards to his stage III wound ulcers in the sacral region. This patient's overall condition and prognosis at this time remains very guarded. the patient underwent routine EEG today which was reviewed. EEG is mildly slow with no evidence of epileptic discharges. The patient is being considered for possible return back to ECF shortly. His sister apparently yesterday was wondering if his medications could be increased. Doubt that this would make much difference as he is on high dose currently. Once again he may be best suited for a intrathecal baclofen pump for treatment of his spasticity symptoms. Patient is being considered for discharge back to his ECF later today. He had a slight temperature last evening and that delayed his discharge. Patient has some nonspecific diffuse pain symptoms that are hard to localize given his overall poor functional status. He will need to follow up with his specialist at the detention. We will continue close neurological follow-up with the patient during this admission. His overall prognosis at this time remains very guarded.
[2017-08-14 15:10] VITALS: TEMP 97.5
[2017-08-14] MEDS: WARFARIN 3 MG TAB PEG/G-TUBE SCH (16:18)
[2017-08-14 20:23] VITALS: BP 136/88; PULSE 83
== END 2017-08-14 21:18 | DRG 698 ==
LOC: EC 09:42 → 5MS5E 14:03
PROVIDERS: ADMIT Internal Medicine; ATTEND Internal Medicine
PROC: 02HV33Z Insertion of Infusion Device into Superior Vena Cava, Percutaneous Approach (ICD-10-PCS; principal; 2017-08-09 07:30)
DX: T83.518A Infection and inflammatory reaction due to other urinary catheter, initial encounter (principal); A41.9 Sepsis, unspecified organism; L89.153 Pressure ulcer of sacral region, stage 3; T82.524A Displacement of infusion catheter, initial encounter; R53.2 Functional quadriplegia; N39.0 Urinary tract infection, site not specified; B96.5 Pseudomonas (aeruginosa) (mallei) (pseudomallei) as the cause of diseases classified elsewhere; F32.9 Major depressive disorder, single episode, unspecified; G35 Multiple sclerosis; Y71.2 Prosthetic and other implants, materials and accessory cardiovascular devices associated with adverse incidents; Y84.6 Urinary catheterization as the cause of abnormal reaction of the patient, or of later complication, without mention of misadventure at the time of the procedure; Z79.01 Long term (current) use of anticoagulants; Z79.899 Other long term (current) drug therapy; Z86.718 Personal history of other venous thrombosis and embolism; Z87.440 Personal history of urinary (tract) infections
CPT/HCPCS: 36415; 36569; 71020; 76937; 77001; 80048; 80053; 81001; 83605; 85025; 85610; 85730; 87040; 87070; 87077; 87086; 87186; 94760; 95819; 96365; 96366; 99285

== ENCOUNTER 2017-10-20 22:37 | Inpatient (IN) | payer MEDICARE, OTHER ==
[2017-10-20] MEDS ORDERED: RX INFO: IV CONTRAST WAS GIVEN 1 EACH MISC MISCELLANE PRN (23:24)
[2017-10-20] MEDS ORDERED: CEFEPIME 1 GM in SODIUM CHLORIDE 0.9% 50 ML IVPB STA (23:35)
[2017-10-20] MEDS ORDERED: VANCOMYCIN 1,000 MG in SODIUM CHLORIDE 0.9% 250 ML IVPB STA (23:35)
--- NOTE | 2017-10-20 23:35 | ED ---
Fever HPI - General Chief Complaint: Fever Stated Complaint: Fever Time Seen by Provider: 10/20/17 23:01 Source: EMS Mode of arrival: EMS Limitations: language barrier, physical limitation - History of Present Illness Initial Comments: patient is a 57-year-old nonverbal male who presents from an outside care facility who presents with a chief complaint of suspected sepsis. Patient is minimally verbal and severely disabled at baseline. He has a history of sepsis in the past. In the emergency department, patient is unaccompanied. Patient is nonverbal and unable to offer history. - Related Data Home Medications Medication Instructions Recorded Confirmed Amantadine Syrup 50mg/5mg 100 mg PEG/G-TUBE Q12H 08/07/17 08/07/17 Ascorbic Acid 100 mg PEG/G-TUBE DAILY 08/07/17 08/07/17 Cholecalciferol (Vitamin D3) 1,000 unit PEG/G-TUBE DAILY 08/07/17 08/07/17 [Children's Vitamin D3] Esomeprazole Magnesium Packet 20 mg PEG/G-TUBE DAILY 08/07/17 08/07/17 Ferrous Sulfate Oral Elixir 300 mg PEG/G-TUBE DAILY 08/07/17 08/07/17 [Feosol Liquid] Gabapentin 250mg/5ml 400 mg PEG/G-TUBE Q8H 08/07/17 08/07/17 Ipratropium-Albuterol Nebulize 3 ml INHALATION RT-Q4H PRN 08/07/17 08/07/17 [Duoneb 0.5 mg-3 mg/3 ml Soln] Jevity 1.5 Sherman Liquid 2 can PEG/G-TUBE TID 08/07/17 08/07/17 Magnesium Oxide [Magox 400] 400 mg PEG/G-TUBE DAILY 08/07/17 08/07/17 Meropenem [Merrem] 1 gm IVPB Q8H 08/07/17 08/07/17 Metoprolol Tartrate [Lopressor] 25 mg PEG/G-TUBE Q12H 08/07/17 08/07/17 Multivitamins, Thera [Multivitamin 1 tab PEG/G-TUBE DAILY 08/07/17 08/07/17 (formulary)] Scopolamine 1 patch TRANSDERM Q72H 08/07/17 08/07/17 Sennosides-Docusate Sodium 1 tab PEG/G-TUBE BID 08/07/17 08/07/17 [Senokot-S] Warfarin [Coumadin] 3 mg PEG/G-TUBE DAILY 08/07/17 08/07/17 Previous Rx's Medication Instructions Recorded Ceftazidime [Fortaz] 2 gm IV Q8H #21 vial 08/14/17 HYDROcodone/APAP 7.5-325MG [Dupuyer 1 tab PEG/G-TUBE Q4H PRN #20 tab 08/14/17 7.5-325] Allergies Allergy/AdvReac Type Severity Reaction Status Date / Time meropenem [From Merrem] Allergy Rash/Hives Verified 08/07/17 10:07 Review of Systems ROS Statement: Those systems with pertinent positive or pertinent negative responses have been documented in the HPI. ROS Other: All systems not noted in ROS Statement are negative. Limitations: ROS unobtainable due to patients medical condition Past Medical History Past Medical History: Deep Vein Thrombosis (DVT), Musculoskeletal Disorder, Renal Disease Additional Past Medical History / Comment(s): pt poor historian-cog impariment/ Impaired speech, NPO-peg tube,DVT-arm, MS, IDC ,INCONT OF BOWEL. LAST BM 08-07-17 ,UTI'S,SACRAL WOUND,CONTRACTURES,DYSARTHRIA/ANARTHRIA/DYSPHAGIA.BEDBOUND, RACHEL LIFT TO W/C. History of Any Multi-Drug Resistant Organisms: MRSA Date of last positivie culture/infection: 2015 MDRO Source:: nose Additional Past Surgical History / Comment(s): PEG, PICC(MISPLACED-SENT TO [facility]) , HX OF GASTROSTOMY Past Anesthesia/Blood Transfusion Reactions: Unable to Obtain Past Psychological History: Depression Smoking Status: Never smoker Past Alcohol Use History: None Reported Past Drug Use History: None Reported - Past Family History Father Family Medical History: Unable to Obtain Mother Family Medical History: Unable to Obtain General Exam Limitations: language barrier, physical limitation General appearance: alert, in no apparent distress Head exam: Present: atraumatic, normocephalic Eye exam: Present: PERRL ENT exam: Present: other (patient has dried blood in bilateral nares) Neck exam: Present: normal inspection Respiratory exam: Present: rhonchi (patient has bilateral rhonchi) Cardiovascular Exam: Present: normal rhythm, tachycardia GI/Abdominal exam: Present: soft, tenderness (patient groans on palpation of the abdomen). Absent: distended Rectal exam: Present: normal inspection, normal rectal tone Extremities exam: Present: normal inspection, other (patient did not have any edema of the extremities. The patient's lower extremity's are contracted.) Back exam: Present: normal inspection Neurological exam: Present: altered, other (patient is nonverbal) Skin exam: Present: warm, dry, other (patient has a stage IV decubitus ulcer of the sacrum. The wound appears to be well cared for) Course Vital Signs 10/20/17 10/20/17 10/21/17 22:40 23:41 00:54 Temperature 99.7 F H 100.6 F H Pulse Rate 108 H 94 Respiratory 17 16 Rate Blood Pressure 131/84 136/80 O2 Sat by Pulse 96 95 Oximetry Medical Decision Making - Medical Decision Making patient is a 57-year-old male with severe debility at baseline, minimally verbal , nonverbal today presents with a chief complaint of suspected sepsis. The patient is not accompanied by anybody. Paperwork from his care facility says "suspect sepsis". On initial evaluation, patient is febrile with a rectal temp of 100.6. He is tachycardic in the 1 teens. Patient groans on abdominal exam. Says his workup was sent, patient will be hydrated, blood cultures, lactate, urinalysis, and urine culture were sent. Patient will have an x-ray of the chest. At this time, I will start broad-spectrum antibiotics. 1:37 AM Lab evaluation of this patient shows a mild leukocytosis, otherwise labs are rather unremarkable. Lactic acid is negative. On reexamination, patient's heart rate is improved to around 90 bpm with some fluid, blood pressure is stable. Patient is currently afebrile. Chest x-ray shows infiltrates versus atelectasis, possibly pneumonia. CT of the abdomen and pelvis shows no acute process however there is a large amount of stool. On rectal exam stool felt Soft, and patient did not appear to be impacted. At this time urinalysis shows evidence of infection however given the fact the patient has an indwelling Stein catheter a urine culture will be sent for sensitivities. Currently patient remained stable on vancomycin and cefepime. Patient will be admitted to Dr. Crowe. Dr. Mills was informed of this patient and will give report to Dr. Crowe in the morning. - Lab Data Result diagrams: 10/20/17 22:45 10/20/17 22:45 Lab Results 10/20/17 10/20/17 10/20/17 Range/Units 22:45 22:45 22:45 WBC 14.0 H (3.8-10.6) k/uL RBC 5.22 (4.30-5.90) m/uL Hgb 13.6 (13.0-17.5) gm/dL Hct 43.1 (39.0-53.0) % MCV 82.6 (80.0-100.0) fL MCH 26.0 (25.0-35.0) pg MCHC 31.5 (31.0-37.0) g/dL RDW 19.2 H (11.5-15.5) % Plt Count 346 (150-450) k/uL Neutrophils % 88 % Lymphocytes % 5 % Monocytes % 5 % Eosinophils % 1 % Basophils % 0 % Neutrophils # 12.4 H (1.3-7.7) k/uL Lymphocytes # 0.6 L (1.0-4.8) k/uL Monocytes # 0.7 (0-1.0) k/uL Eosinophils # 0.2 (0-0.7) k/uL Basophils # 0.0 (0-0.2) k/uL Anisocytosis Slight Microcytosis Slight PT (9.0-12.0) sec INR (<1.2) APTT (22.0-30.0) sec Sodium 141 (137-145) mmol/L Potassium 4.9 (3.5-5.1) mmol/L Chloride 105 (98-107) mmol/L Carbon Dioxide 23 (22-30) mmol/L Anion Gap 13 mmol/L BUN 31 H (9-20) mg/dL Creatinine 1.10 (0.66-1.25) mg/dL Est GFR (MDRD) Af Amer >60 (>60 ml/min/1.73 sqM) Est GFR (MDRD) Non-Af >60 (>60 ml/min/1.73 sqM) Glucose 98 (74-99) mg/dL Plasma Lactic Acid Taurus 1.2 (0.7-2.0) mmol/L Calcium 9.6 (8.4-10.2) mg/dL Total Bilirubin 0.2 (0.2-1.3) mg/dL AST 18 (17-59) U/L ALT 38 (21-72) U/L Alkaline Phosphatase 133 H (38-126) U/L Troponin I (0.000-0.034) ng/mL Total Protein 7.6 (6.3-8.2) g/dL Albumin 3.9 (3.5-5.0) g/dL Urine Color Urine Appearance (Clear) Urine pH (5.0-8.0) Ur Specific Samson (1.001-1.035) Urine Protein (Negative) Urine Glucose (UA) (Negative) Urine Ketones (Negative) Urine Blood (Negative) Urine Nitrite (Negative) Urine Bilirubin (Negative) Urine Urobilinogen (<2.0) mg/dL Ur Leukocyte Esterase (Negative) Urine RBC (0-5) /hpf Urine WBC (0-5) /hpf Amorphous Sediment (None) /hpf Urine Bacteria (None) /hpf Urine Mucus (None) /hpf Stool Occult Blood (Negative) Influenza Type A RNA (Not Detectd) Influenza Type B (PCR) (Not Detectd) 10/20/17 10/20/17 10/20/17 Range/Units 22:45 22:45 22:45 WBC (3.8-10.6) k/uL RBC (4.30-5.90) m/uL Hgb (13.0-17.5) gm/dL Hct (39.0-53.0) % MCV (80.0-100.0) fL MCH (25.0-35.0) pg MCHC (31.0-37.0) g/dL RDW (11.5-15.5) % Plt Count (150-450) k/uL Neutrophils % % Lymphocytes % % Monocytes % % Eosinophils % % Basophils % % Neutrophils # (1.3-7.7) k/uL Lymphocytes # (1.0-4.8) k/uL Monocytes # (0-1.0) k/uL Eosinophils # (0-0.7) k/uL Basophils # (0-0.2) k/uL Anisocytosis Microcytosis PT 39.9 H (9.0-12.0) sec INR 4.4 H (<1.2) APTT 46.0 H (22.0-30.0) sec Sodium (137-145) mmol/L Potassium (3.5-5.1) mmol/L Chloride (98-107) mmol/L Carbon Dioxide (22-30) mmol/L Anion Gap mmol/L BUN (9-20) mg/dL Creatinine (0.66-1.25) mg/dL Est GFR (MDRD) Af Amer (>60 ml/min/1.73 sqM) Est GFR (MDRD) Non-Af (>60 ml/min/1.73 sqM) Glucose (74-99) mg/dL Plasma Lactic Acid Taurus (0.7-2.0) mmol/L Calcium (8.4-10.2) mg/dL Total Bilirubin (0.2-1.3) mg/dL AST (17-59) U/L ALT (21-72) U/L Alkaline Phosphatase (38-126) U/L Troponin I <0.012 (0.000-0.034) ng/mL Total Protein (6.3-8.2) g/dL Albumin (3.5-5.0) g/dL Urine Color Urine Appearance (Clear) Urine pH (5.0-8.0) Ur Specific Samson (1.001-1.035) Urine Protein (Negative) Urine Glucose (UA) (Negative) Urine Ketones (Negative) Urine Blood (Negative) Urine Nitrite (Negative) Urine Bilirubin (Negative) Urine Urobilinogen (<2.0) mg/dL Ur Leukocyte Esterase (Negative) Urine RBC (0-5) /hpf Urine WBC (0-5) /hpf Amorphous Sediment (None) /hpf Urine Bacteria (None) /hpf Urine Mucus (None) /hpf Stool Occult Blood (Negative) Influenza Type A RNA Not Detected (Not Detectd) Influenza Type B (PCR) Not Detected (Not Detectd) 10/20/17 10/21/17 Range/Units 22:45 00:59 WBC (3.8-10.6) k/uL RBC (4.30-5.90) m/uL Hgb (13.0-17.5) gm/dL Hct (39.0-53.0) % MCV (80.0-100.0) fL MCH (25.0-35.0) pg MCHC (31.0-37.0) g/dL RDW (11.5-15.5) % Plt Count (150-450) k/uL Neutrophils % % Lymphocytes % % Monocytes % % Eosinophils % % Basophils % % Neutrophils # (1.3-7.7) k/uL Lymphocytes # (1.0-4.8) k/uL Monocytes # (0-1.0) k/uL Eosinophils # (0-0.7) k/uL Basophils # (0-0.2) k/uL Anisocytosis Microcytosis PT (9.0-12.0) sec INR (<1.2) APTT (22.0-30.0) sec Sodium (137-145) mmol/L Potassium (3.5-5.1) mmol/L Chloride (98-107) mmol/L Carbon Dioxide (22-30) mmol/L Anion Gap mmol/L BUN (9-20) mg/dL Creatinine (0.66-1.25) mg/dL Est GFR (MDRD) Af Amer (>60 ml/min/1.73 sqM) Est GFR (MDRD) Non-Af (>60 ml/min/1.73 sqM) Glucose (74-99) mg/dL Plasma Lactic Acid Taurus (0.7-2.0) mmol/L Calcium (8.4-10.2) mg/dL Total Bilirubin (0.2-1.3) mg/dL AST (17-59) U/L ALT (21-72) U/L Alkaline Phosphatase (38-126) U/L Troponin I (0.000-0.034) ng/mL Total Protein (6.3-8.2) g/dL Albumin (3.5-5.0) g/dL Urine Color Yellow Urine Appearance Cloudy (Clear) Urine pH 7.5 (5.0-8.0) Ur Specific Samson 1.014 (1.001-1.035) Urine Protein Trace H (Negative) Urine Glucose (UA) Negative (Negative) Urine Ketones Negative (Negative) Urine Blood Moderate H (Negative) Urine Nitrite Positive (Negative) Urine Bilirubin Negative (Negative) Urine Urobilinogen <2.0 (<2.0) mg/dL Ur Leukocyte Esterase Large H (Negative) Urine RBC 158 H (0-5) /hpf Urine WBC 19 H (0-5) /hpf Amorphous Sediment Rare H (None) /hpf Urine Bacteria Rare H (None) /hpf Urine Mucus Rare H (None) /hpf Stool Occult Blood Negative (Negative) Influenza Type A RNA (Not Detectd) Influenza Type B (PCR) (Not Detectd) Disposition Clinical Impression: Constipation, UTI (urinary tract infection), Pneumonia, Fever, SIRS (systemic inflammatory response syndrome) Disposition: ADMITTED IP TO THIS [facility] Condition: Good Referrals: Brenden Olivares DO [Primary Care Provider] - 1-2 days Decision to Admit Reason: Admit from [facility] - Out of Hospital Transfer - Req. Specs Out of Hospital Transfer - Requested Specifics: Telemetry Unit
[2017-10-20] MEDS: SODIUM CHLORIDE 0.9% 1,000 ML IV SCH (23:48)
[2017-10-20] MEDS: SODIUM CHLORIDE 0.9% 500 ML IV SCH (23:48)
[2017-10-20 23:49] LABS: Anisocytosis Slight; Basophils % (A) 0 %; Eosinophils # (A) 0.2 k/uL (0-0.7); Eosinophils % (A) 1 %; HCT 43.1 % (39.0-53.0); HGB 13.6 gm/dL (13.0-17.5); Lymphocytes # (A) 0.6 k/uL (1.0-4.8); Lymphocytes % (A) 5 %; MCHC 31.5 g/dL (31.0-37.0); MCV 82.6 fL (80.0-100.0); Mean Platelet Volume 8.9; Microcytosis Slight; Monocytes # (A) 0.7 k/uL (0-1.0); Monocytes % (A) 5 %; Neutrophils # (A) 12.4 k/uL (1.3-7.7); Neutrophils % (A) 88 %; Platelet Count 346 k/uL (150-450); RBC 5.22 m/uL (4.30-5.90); RDW 19.2 % (11.5-15.5)
[2017-10-20 23:58] LABS: ALT 38 U/L (21-72); AST 18 U/L (17-59); Albumin 3.9 g/dL (3.5-5.0); Alkaline Phosphatase 133 U/L (38-126); Anion Gap 13 mmol/L; Blood Urea Nitrogen 31 mg/dL (9-20); Calcium 9.6 mg/dL (8.4-10.2); Carbon Dioxide 23 mmol/L (22-30); Chloride 105 mmol/L (98-107); Glucose 98 mg/dL (74-99); Potassium 4.9 mmol/L (3.5-5.1); Sodium 141 mmol/L (137-145); Total Bilirubin 0.2 mg/dL (0.2-1.3); Total Protein 7.6 g/dL (6.3-8.2)
[2017-10-21] LABS: INR 4.4 (<1.2); Prothrombin Time 39.9 sec (9.0-12.0)
[2017-10-21] MEDS: SODIUM CHLORIDE 0.9% 500 ML IV SCH ×3 (00:16→01:49)
[2017-10-21 01:19] LABS: Amorphous Sediment,Urine Rare /hpf; Appearance,Urine Cloudy (Clear); Bacteria,Urine Rare /hpf; Bilirubin,Urine Negative (Negative); Blood,Urine Moderate (Negative); Color,Urine Yellow; Glucose,Urine (UA) Negative (Negative); Ketones,Urine Negative (Negative); Leukocyte Esterase,Urine Large (Negative); Mucus,Urine Rare /hpf; Nitrite,Urine Positive (Negative); PH, Urine 7.5 (5.0-8.0); Protein,Urine Trace (Negative); RBC,Urine 158 /hpf (0-5); Specific Gravity,Urine 1.014 (1.001-1.035); Urobilinogen,Urine <2.0 mg/dL (<2.0); WBC,Urine 19 /hpf (0-5)
--- NOTE | 2017-10-21 01:25 | CT ---
EXAMINATION TYPE: CT abdomen pelvis w con DATE OF EXAM: 10/21/2017 COMPARISON: None HISTORY: Abdominal pain CT DLP: mGycm Automated exposure control for dose reduction was used. TECHNIQUE: Helical acquisition of images was performed from the lung bases through the pelvis. CONTRAST: The contrast was Omnipaque 100 mL. FINDINGS: There is patchy interstitial infiltrate and atelectasis at the posterior lung bases. There is no pleu ral effusion. Heart size is normal. Liver appears normal. Gallbladder appears normal. Bile ducts are not dilated. Spleen and pancreas sabino ear normal. There is a gastrostomy tube noted. There is retained fecal material in the colon. There is dilated rectum that measures 8 cm. There is a Stein catheter in the urinary bladder. I see no sign of free air. Kidneys show satisfactory contrast opacification. There is no hydronephrosis. Ureters are not dilated. There is no retroperitoneal fili opathy. There is deformity of the hip joints. There is flexion and adduction deformity of the right femur. Th ere is old ununited left femoral neck fracture. IMPRESSION: THERE IS SIGNIFICANT CONSTIPATION. NO FREE AIR. RECTAL FECAL IMPACTION. THERE IS MILD INTERSTITIAL INFILTRATE AND ATELECTASIS AT THE POSTERIOR LUNG BASES.
--- NOTE | 2017-10-21 01:27 | XR ---
EXAMINATION TYPE: XR chest 1V portable DATE OF EXAM: 10/21/2017 COMPARISON: 08/07/2017 HISTORY: Fever FINDINGS: There is a mild diffuse interstitial infiltrate in both lungs. Heart size is normal. Old left-sided healed rib fractures noted. There are chest leads. There is no pleural effusion. TECHNIQUE: Single frontal view of the chest is obtained. Conclusion There is new pulmonary interstitial infiltrates compared to old exam and is nonspecific. A cute heart failure cannot be excluded.
[2017-10-21] MEDS ORDERED: NALOXONE 0.4 MG/ML 1 ML VIAL IV PRN (01:40)
[2017-10-21] MEDS ORDERED: ACETAMINOPHEN TAB 325 MG TAB PO PRN (01:40)
[2017-10-21] MEDS ORDERED: IBUPROFEN 400 MG TAB PO PRN (01:40)
[2017-10-21] MEDS ORDERED: DOCUSATE 100 MG CAP PO PRN (01:40)
[2017-10-21] MEDS ORDERED: BISACODYL 10 MG SUPP RECTAL STA (14:51)
[2017-10-21] MEDS ORDERED: IPRATROPIUM-ALBUTEROL 3 ML NEB INHALATION PRN (17:06)
[2017-10-21] MEDS: SODIUM CHLORIDE 0.9% 1,000 ML IV SCH (20:36)
[2017-10-21] MEDS: METOPROLOL TARTRATE 25 MG TAB PEG/G-TUBE SCH (20:39)
[2017-10-21] MEDS: GABAPENTIN 100 MG CAP PEG/G-TUBE SCH (20:39)
[2017-10-21] MEDS: AMANTADINE HCL PEG/G-TUBE SCH (20:40)
[2017-10-21] MEDS: SCOPOLAMINE 1.5MG/72HR PATCH TRANSDERM SCH (20:40)
[2017-10-21] MEDS: CEFEPIME 1 GM in SODIUM CHLORIDE 0.9% 50 ML IVPB SCH (21:58)
[2017-10-21] MEDS ORDERED: JEVITY CAL PEG/G-TUBE SCH (22:00)
--- NOTE | 2017-10-21 22:29 | P.HPIM ---
History of Present Illness H&P Date: 10/21/17 Chief Complaint: fever 57-year-old male with a past history of musculoskeletal disorder and chronic lower extremity contractures and DVT and Coumadin, who is a poor historian and unable to give history [facility]. Patient was recently treated forPseudomonas in her tract infection in August 2017.Patient says no to pain when asked. Patient does say yes or no and he can understand but could not able to communicate. Unable to get further review of systems. he was found have pneumoniaand urinary tract infectionas well as fecal impactionon CTabdomen and pelvis. Past Medical History Past Medical History: Deep Vein Thrombosis (DVT), Musculoskeletal Disorder, Renal Disease Additional Past Medical History / Comment(s): pt poor historian-cog impariment/ Impaired speech, NPO-peg tube,DVT-arm, MS, IDC ,INCONT OF BOWEL. LAST BM 08-07-17 ,UTI'S,SACRAL WOUND,CONTRACTURES,DYSARTHRIA/ANARTHRIA/DYSPHAGIA.BEDBOUND, RACHEL LIFT TO W/C. History of Any Multi-Drug Resistant Organisms: MRSA Date of last positivie culture/infection: 2015 MDRO Source:: nose Additional Past Surgical History / Comment(s): PEG, PICC(MISPLACED-SENT [facility]) , HX OF GASTROSTOMY Past Anesthesia/Blood Transfusion Reactions: Unable to Obtain Past Psychological History: Depression Smoking Status: Never smoker Past Alcohol Use History: None Reported Past Drug Use History: None Reported - Past Family History Father Family Medical History: Unable to Obtain Mother Family Medical History: Unable to Obtain Medications and Allergies Home Medications Medication Instructions Recorded Confirmed Type Amantadine Syrup 50mg/5mg 100 mg PEG/G-TUBE Q12H 08/07/17 10/21/17 History Ascorbic Acid 100 mg PEG/G-TUBE DAILY 08/07/17 10/21/17 History Cholecalciferol (Vitamin D3) 1,000 unit PEG/G-TUBE DAILY 08/07/17 10/21/17 History [Children's Vitamin D3] Ferrous Sulfate Oral Elixir 300 mg PEG/G-TUBE DAILY 08/07/17 10/21/17 History [Feosol Liquid] Gabapentin 250mg/5ml 500 mg PEG/G-TUBE Q6H 08/07/17 10/21/17 History Ipratropium-Albuterol Nebulize 3 ml INHALATION RT-Q4H PRN 08/07/17 10/21/17 History [Duoneb 0.5 mg-3 mg/3 ml Soln] Jevity 1.5 Sherman Liquid 2 can PEG/G-TUBE TID 08/07/17 10/21/17 History Magnesium Oxide [Magox 400] 400 mg PEG/G-TUBE DAILY 08/07/17 10/21/17 History Metoprolol Tartrate [Lopressor] 25 mg PEG/G-TUBE Q12H 08/07/17 10/21/17 History Multivitamins, Thera [Multivitamin 1 tab PEG/G-TUBE DAILY 08/07/17 10/21/17 History (formulary)] Scopolamine 1 patch TRANSDERM Q72H 08/07/17 10/21/17 History Sennosides-Docusate Sodium 1 tab PEG/G-TUBE BID 08/07/17 10/21/17 History [Senokot-S] Warfarin [Coumadin] 3 mg PEG/G-TUBE DAILY@1700 08/07/17 10/21/17 History HYDROcodone/APAP 7.5-325MG [[place] 1 tab PEG/G-TUBE Q4H PRN #20 tab 08/14/17 Rx 7.5-325] Baclofen Susp 5 mg PEG/G-TUBE TID 10/21/17 10/21/17 History Esomeprazole Magnesium [NexIUM] 20 mg PEG/G-TUBE DAILY 10/21/17 10/21/17 History Sulfamethox-Tmp 800-160Mg [Bactrim 1 tab PEG/G-TUBE Q12HR 10/21/17 10/21/17 History DS 800-160 mg] Allergies Allergy/AdvReac Type Severity Reaction Status Date / Time meropenem [From Merrem] Allergy Rash/Hives Verified 10/21/17 09:29 Physical Exam Vitals: Vital Signs Temp Pulse Resp BP Pulse Ox 10/21/17 16:59 98 F 90 18 123/78 96 10/21/17 15:02 89 19 118/72 97 10/21/17 13:37 99.1 F 88 18 133/70 96 10/21/17 11:05 96 17 110/65 96 10/21/17 10:00 91 16 176/71 96 10/21/17 08:24 90 18 111/67 98 10/21/17 07:24 99 F 99 10/21/17 07:10 81 18 122/68 99 10/21/17 06:52 81 18 108/64 95 10/21/17 05:41 98.7 F 84 16 143/86 94 L 10/21/17 04:53 86 16 145/84 10/21/17 03:53 90 17 149/89 95 10/21/17 02:48 90 17 160/89 94 L 10/21/17 01:57 98.9 F 102 H 16 148/96 95 10/21/17 00:54 94 16 136/80 95 10/20/17 23:41 100.6 F H 10/20/17 22:40 99.7 F H 108 H 17 131/84 96 Patient is lying in the bed comfortably, no acute distress, awake alert but cannot communicate HEENT: Normocephalic. Neck is supple. Pupils reactive. Nostrils clear. Oral cavity is moist. Ears reveal no drainage. Neck reveals no JVD, carotid bruits, or thyromegaly. CHEST EXAMINATION: Trachea is central. Symmetrical expansion. Lung prater clear to auscultation and percussion. diminished breath sounds basally CARDIAC: Normal S1, S2 with no gallops. No murmurs ABDOMEN: Soft. Bowel sounds normal. No organomegaly. No abdominal bruits. Extremities: reveal no edema. No clubbing or cyanosis Neurologically awake, alert. Patient does have bilateral lower activity contractures Skin: No rash or skin lesions. Psychiatric: Could not be assessed Musculoskeletal: No joint swelling or deformity. Lower extremity contractures Results CBC & Chem 7: 10/20/17 22:45 10/20/17 22:45 Labs: Abnormal Lab Results - Last 24 Hours (Table) 10/20/17 10/20/17 10/20/17 Range/Units 22:45 22:45 22:45 WBC 14.0 H (3.8-10.6) k/uL RDW 19.2 H (11.5-15.5) % Neutrophils # 12.4 H (1.3-7.7) k/uL Lymphocytes # 0.6 L (1.0-4.8) k/uL PT 39.9 H (9.0-12.0) sec INR 4.4 H (<1.2) APTT 46.0 H (22.0-30.0) sec BUN 31 H (9-20) mg/dL Alkaline Phosphatase 133 H (38-126) U/L Urine Protein (Negative) Urine Blood (Negative) Ur Leukocyte Esterase (Negative) Urine RBC (0-5) /hpf Urine WBC (0-5) /hpf Amorphous Sediment (None) /hpf Urine Bacteria (None) /hpf Urine Mucus (None) /hpf 10/21/17 Range/Units 00:59 WBC (3.8-10.6) k/uL RDW (11.5-15.5) % Neutrophils # (1.3-7.7) k/uL Lymphocytes # (1.0-4.8) k/uL PT (9.0-12.0) sec INR (<1.2) APTT (22.0-30.0) sec BUN (9-20) mg/dL Alkaline Phosphatase (38-126) U/L Urine Protein Trace H (Negative) Urine Blood Moderate H (Negative) Ur Leukocyte Esterase Large H (Negative) Urine RBC 158 H (0-5) /hpf Urine WBC 19 H (0-5) /hpf Amorphous Sediment Rare H (None) /hpf Urine Bacteria Rare H (None) /hpf Urine Mucus Rare H (None) /hpf Microbiology - Last 24 Hours (Table) 10/21/17 00:59 Urine Culture - Preliminary Urine,Catheterized Assessment and Plan Assessment: #1 acute urinary tract infection with history ofPseudomonasuTI. Repeat urine culturewas ordered #2 recent urinary tract infection reated with Fortaz. Patient was ALLERGY to meropenem. #3 Bilateral pneumonia #4sepsis secondary to UTI and pneumonia #4 MS with lower extremity contractures #5 history of DVT on Coumadin #6 fecal impaction plan: patient will be continued onantibioticsin the form ofcefepime. ID was consultedfor further evaluation. Continue with IV fluids and continue the home medicationsand Coumadin monitoring. Patient was givenDulcolax suppository and enema. We will consider general surgery consultation. further recommendationsbased on the clinical course. Prognosis is guarded. Time with Patient: Greater than 30
[2017-10-22] MEDS: BACLOFEN 10 MG TAB PEG/G-TUBE SCH ×4 (00:52→22:52)
[2017-10-22] MEDS: GABAPENTIN 100 MG CAP PEG/G-TUBE SCH ×5 (00:53→22:53)
[2017-10-22] MEDS: SODIUM CHLORIDE 0.9% 1,000 ML IV SCH (05:39)
[2017-10-22] MEDS: METOPROLOL TARTRATE 25 MG TAB PEG/G-TUBE SCH ×2 (05:41→16:17)
[2017-10-22] MEDS: AMANTADINE HCL PEG/G-TUBE SCH ×2 (05:41→16:16)
[2017-10-22 07:50] LABS: Appearance,Urine Clear (Clear); Bacteria,Urine Rare /hpf; Bilirubin,Urine Negative (Negative); Blood,Urine Small (Negative); Color,Urine Colorless; Glucose,Urine (UA) Negative (Negative); Ketones,Urine Negative (Negative); Leukocyte Esterase,Urine Moderate (Negative); Nitrite,Urine Negative (Negative); PH, Urine 6.5 (5.0-8.0); Protein,Urine Negative (Negative); RBC,Urine 4 /hpf (0-5); Specific Gravity,Urine 1.004 (1.001-1.035); Urobilinogen,Urine <2.0 mg/dL (<2.0); WBC,Urine 13 /hpf (0-5)
[2017-10-22 08:36] LABS: Anisocytosis Slight; Basophils % (A) 1 %; Eosinophils # (A) 0.7 k/uL (0-0.7); Eosinophils % (A) 8 %; HCT 36.7 % (39.0-53.0); HGB 11.3 gm/dL (13.0-17.5); Hypochromasia Slight; Lymphocytes # (A) 1.3 k/uL (1.0-4.8); Lymphocytes % (A) 16 %; MCH 26.1 pg (25.0-35.0); MCHC 30.7 g/dL (31.0-37.0); MCV 85.1 fL (80.0-100.0); Mean Platelet Volume 8.8; Monocytes # (A) 0.7 k/uL (0-1.0); Monocytes % (A) 8 %; Neutrophils # (A) 5.3 k/uL (1.3-7.7); Neutrophils % (A) 65 %; Platelet Count 290 k/uL (150-450); RBC 4.31 m/uL (4.30-5.90); RDW 18.9 % (11.5-15.5); WBC 8.2 k/uL (3.8-10.6)
[2017-10-22 08:40] LABS: INR 1.8 (<1.2); Prothrombin Time 16.4 sec (9.0-12.0)
[2017-10-22 08:54] LABS: Anion Gap 12 mmol/L; Blood Urea Nitrogen 16 mg/dL (9-20); Calcium 9.3 mg/dL (8.4-10.2); Carbon Dioxide 20 mmol/L (22-30); Chloride 111 mmol/L (98-107); Glucose 94 mg/dL (74-99); Magnesium 1.7 mg/dL (1.6-2.3); Potassium 4.1 mmol/L (3.5-5.1); Sodium 143 mmol/L (137-145)
[2017-10-22] MEDS: CEFEPIME 1 GM in SODIUM CHLORIDE 0.9% 50 ML IVPB SCH ×2 (09:10→22:26)
[2017-10-22] MEDS: FERROUS SULFATE ORAL ELIXIR 300 MG/5 ML CUP PEG/G-TUBE SCH (09:12)
[2017-10-22] MEDS: ASCORBIC ACID 500 MG TAB PEG/G-TUBE SCH (09:13)
[2017-10-22] MEDS: PANTOPRAZOLE SODIUM 40 MG GRANULE PKT PEG/G-TUBE SCH (09:13)
[2017-10-22] MEDS: CHOLECALCIFEROL 1,000 UNIT TAB PEG/G-TUBE SCH (09:13)
[2017-10-22] MEDS: MAGNESIUM OXIDE 400 MG TAB PEG/G-TUBE SCH (09:14)
[2017-10-22] MEDS: MULTIVITAMINS, THERA 1 EACH TAB PEG/G-TUBE SCH (09:14)
--- NOTE | 2017-10-22 10:12 | CONS ---
CONSULTATION DATE OF SERVICE: 10/21/2017 REASON FOR CONSULTATION: 1. Catheter associated urinary tract infection. 2. Sacral pressure ulcer. HISTORY OF PRESENT ILLNESS: The patient is a 57-year-old male who is a resident of a [facility]. Patient who did have a history of cognitive impairment and urinary retention requiring Stein catheter that apparently was last changed on 10/12/2017. The patient has been sent to the ER for evaluation of fever and possible sepsis. On arrival to the ER at the [facility], patient did have a fever of 100.6. He did have tachycardia with heart rate of 108. However, blood pressure was stable. The patient apparently did get some fluids support. His white count was elevated at 14,000. INR of 4.4. The UA was positive. The patient did have a CT of abdomen and pelvis, which did show retained stool and some pulmonary infiltrate, but no other abnormality. The patient was started on cefepime 1 gram q.12 because of his allergies and previous history of Pseudomonas UTI. He has been admitted hospital. ID was consulted for further recommendation regarding antibiotic therapy. Most of this information has been obtained from thorough review of the chart as the patient is currently nonverbal and unable to provide any history. The patient also noticed to have a sacral pressure ulcer on which a DuoDERM was applied by the time he came to the ER. REVIEW OF SYSTEMS: Could not be reliably obtained because of underlying mental stasis, positive points have been mentioned in HPI. PAST MEDICAL HISTORY: Cognitive impairment, DVT, urinary retention requiring chronic Stein, previous history of Pseudomonas UTI and a sacral pressure ulcer stage III. PAST SURGICAL HISTORY: PEG tube placement, PICC line placement and subsequent removal. SOCIAL HISTORY: The patient is a resident of [facility]. No history of smoking, drinking, or drug use. FAMILY HISTORY: Unable to obtain. ALLERGIES: Allergies to MEROPENEM with a rash. MEDICATIONS: Medications include the patient is currently on Tylenol, [place], DuoNeb, amantadine, vitamin C, baclofen, cefepime 1 q.12, Colace, iron sulfate, Neurontin, Mag oxide , Lopressor, Theragran, Narcan, Protonix, scopolamine patch, and Coumadin. PHYSICAL EXAMINATION: On examination, blood pressure 121/66 with a pulse of 87, temperature of 98.6. He is 97% on room air. General description is an elderly male lying in bed in no distress. No tachypnea or accessory muscle for respiration use. HEENT examination shows no pallor or scleral icterus. Oral mucous membranes is dry. No pharyngeal erythema or thrush NECK: Trachea central. No thyromegaly. LUNGS: Unlabored breathing, clear to auscultation anteriorly. No wheeze or crackle. HEART: S1, S2. Regular rate and rhythm. No murmur ABDOMEN: Soft, no tenderness. No guarding or rigidity. No organomegaly GENITOURINARY: Stein catheter did have some dark urine. No hematuria. EXTREMITIES: No edema of feet. EXAMINATION OF SACRAL AREA: The patient did have a stage III pressure ulcer with no significant slough tissue. Surrounding erythema. NEUROLOGICAL: The patient is awake and alert; however, orientation could not be determined. LABS: Hemoglobin is 13.6, white count 14,000. BUN of 31, creatinine 1.10. UA has been positive. DIAGNOSTIC IMPRESSION AND PLAN: 1. Patient admitted to the hospital with sepsis in a patient who did have a fever, elevated white count, tachycardia, source is likely catheter-associated urinary tract infection with previous history of Pseudomonas could be the same, however, a different pathogen in a patient who is a [facility] resident. Will need to cover for resistant gram-negative pathogen. 2. Patient who did have a stage III sacral pressure ulcer with no evidence of any cellulitis. 3. Antibiotic allergies limiting number of antibiotics that could be safely used. PLAN: 1. Change his Stein catheter obtaining a urine culture from the new Steni. 2. Blood culture has been obtained. 3. Cefepime 1 gram q.12 hours to provide coverage for the Pseudomonas and the other resistant gram-negative pathogen. 4. Aquacel silver packing of the wound. 5. We will follow up on his clinical condition as well as cultures to further adjust medication if needed. Thank you for this consultation. Will follow this patient along with you. MMODL / IJN: [id number] / JOSE MIGUEL
[2017-10-22] MEDS: HYDROcodone/APAP 7.5-325MG 1 EACH TAB PEG/G-TUBE PRN (11:50)
[2017-10-22 12:07] LABS: Glucose,Whole Blood 111 mg/dL (75-99)
--- NOTE | 2017-10-22 13:59 | P.GSCN ---
History of Present Illness Consult date: 10/22/17 Reason for Consult: Fecal impaction History of present illness: Patient presents to the hospital with fevers and possible sepsis. During his workup he was found on CAT scan to have evidence of constipation and fecal bolus in the rectum. I was consulted for fecal disimpaction. The patient is nonverbal although he does appear to understand and can answer with yes and no answers. No vomiting. He was having some liquid stools reportedly. He has a PEG tube for feeding purposes. White blood cell count was elevated but normal now. T-max 100.6. He did appear to be having some abdominal tenderness and pain initially on evaluation. Review of Systems ROS unobtainable: due to mental status Past Medical History Past Medical History: Deep Vein Thrombosis (DVT), Musculoskeletal Disorder, Renal Disease Additional Past Medical History / Comment(s): pt poor historian-cog impariment/ Impaired speech, NPO-peg tube,DVT-arm, MS, IDC ,INCONT OF BOWEL. LAST BM 08-07-17 ,UTI'S,SACRAL WOUND,CONTRACTURES,DYSARTHRIA/ANARTHRIA/DYSPHAGIA.BEDBOUND, RACHEL LIFT TO W/C. History of Any Multi-Drug Resistant Organisms: MRSA Year Discovered:: 2016 MDRO Source:: nose Additional Past Surgical History / Comment(s): PEG, PICC(MISPLACED-SENT TO [facility]) , HX OF GASTROSTOMY Past Anesthesia/Blood Transfusion Reactions: Unable to Obtain Past Psychological History: Depression Smoking Status: Never smoker Past Alcohol Use History: None Reported Past Drug Use History: None Reported - Past Family History Father Family Medical History: Unable to Obtain Mother Family Medical History: Unable to Obtain Medications and Allergies Home Medications Medication Instructions Recorded Confirmed Type Amantadine Syrup 50mg/5mg 100 mg PEG/G-TUBE Q12H 08/07/17 10/21/17 History Ascorbic Acid 100 mg PEG/G-TUBE DAILY 08/07/17 10/21/17 History Cholecalciferol (Vitamin D3) 1,000 unit PEG/G-TUBE DAILY 08/07/17 10/21/17 History [Children's Vitamin D3] Ferrous Sulfate Oral Elixir 300 mg PEG/G-TUBE DAILY 08/07/17 10/21/17 History [Feosol Liquid] Gabapentin 250mg/5ml 500 mg PEG/G-TUBE Q6H 08/07/17 10/21/17 History Ipratropium-Albuterol Nebulize 3 ml INHALATION RT-Q4H PRN 08/07/17 10/21/17 History [Duoneb 0.5 mg-3 mg/3 ml Soln] Jevity 1.5 Sherman Liquid 2 can PEG/G-TUBE TID 08/07/17 10/21/17 History Magnesium Oxide [Magox 400] 400 mg PEG/G-TUBE DAILY 08/07/17 10/21/17 History Metoprolol Tartrate [Lopressor] 25 mg PEG/G-TUBE Q12H 08/07/17 10/21/17 History Multivitamins, Thera [Multivitamin 1 tab PEG/G-TUBE DAILY 08/07/17 10/21/17 History (formulary)] Scopolamine 1 patch TRANSDERM Q72H 08/07/17 10/21/17 History Sennosides-Docusate Sodium 1 tab PEG/G-TUBE BID 08/07/17 10/21/17 History [Senokot-S] Warfarin [Coumadin] 3 mg PEG/G-TUBE DAILY@1700 08/07/17 10/21/17 History HYDROcodone/APAP 7.5-325MG [Strawberry 1 tab PEG/G-TUBE Q4H PRN #20 tab 08/14/17 Rx 7.5-325] Baclofen Susp 5 mg PEG/G-TUBE TID 10/21/17 10/21/17 History Esomeprazole Magnesium [NexIUM] 20 mg PEG/G-TUBE DAILY 10/21/17 10/21/17 History Sulfamethox-Tmp 800-160Mg [Bactrim 1 tab PEG/G-TUBE Q12HR 10/21/17 10/21/17 History DS 800-160 mg] Allergies Allergy/AdvReac Type Severity Reaction Status Date / Time meropenem [From Merrem] Allergy Rash/Hives Verified 10/21/17 09:29 Surgical - Exam Vital Signs Temp Pulse Resp BP Pulse Ox 99.7 F H 108 H 17 131/84 96 10/20/17 22:40 10/20/17 22:40 10/20/17 22:40 10/20/17 22:40 10/20/17 22:40 Physical exam: General: Thin elderly male in no acute distress, contracted, nonverbal HEENT: Normocephalic, sclerae nonicteric Abdomen: Nontender, nondistended Extremities: Contractures Neuro: Alert Rectum: Large somewhat soft fecal bolus, disimpacted at the bedside without anesthesia, majority of the fecal stool bolus was removed. I would estimate approximately 10-12 ounces of stool removed Results - Labs 10/22/17 08:07 10/22/17 08:07 Abnormal Lab Results - Last 24 Hours (Table) 10/21/17 10/22/17 10/22/17 Range/Units 07:31 08:07 08:07 Hgb 11.3 L (13.0-17.5) gm/dL Hct 36.7 L (39.0-53.0) % MCHC 30.7 L (31.0-37.0) g/dL RDW 18.9 H (11.5-15.5) % PT (9.0-12.0) sec INR (<1.2) Chloride 111 H (98-107) mmol/L Carbon Dioxide 20 L (22-30) mmol/L POC Glucose (mg/dL) (75-99) mg/dL Urine Blood Small H (Negative) Ur Leukocyte Esterase Moderate H (Negative) Urine WBC 13 H (0-5) /hpf Urine Bacteria Rare H (None) /hpf 10/22/17 10/22/17 Range/Units 08:07 11:54 Hgb (13.0-17.5) gm/dL Hct (39.0-53.0) % MCHC (31.0-37.0) g/dL RDW (11.5-15.5) % PT 16.4 H (9.0-12.0) sec INR 1.8 H (<1.2) Chloride (98-107) mmol/L Carbon Dioxide (22-30) mmol/L POC Glucose (mg/dL) 111 H (75-99) mg/dL Urine Blood (Negative) Ur Leukocyte Esterase (Negative) Urine WBC (0-5) /hpf Urine Bacteria (None) /hpf Microbiology - Last 24 Hours (Table) 10/21/17 07:31 Urine Culture - Preliminary Urine,Catheterized 10/20/17 22:45 Blood Culture - Preliminary Blood No Growth after 24 hours 10/21/17 00:59 Urine Culture - Preliminary Urine,Catheterized Diabetes panel 10/22/17 Range/Units 08:07 Sodium 143 (137-145) mmol/L Potassium 4.1 (3.5-5.1) mmol/L Chloride 111 H (98-107) mmol/L Carbon Dioxide 20 L (22-30) mmol/L BUN 16 (9-20) mg/dL Creatinine 0.79 (0.66-1.25) mg/dL Glucose 94 (74-99) mg/dL Calcium 9.3 (8.4-10.2) mg/dL Calcium panel 10/22/17 Range/Units 08:07 Calcium 9.3 (8.4-10.2) mg/dL Pituitary panel 10/22/17 Range/Units 08:07 Sodium 143 (137-145) mmol/L Potassium 4.1 (3.5-5.1) mmol/L Chloride 111 H (98-107) mmol/L Carbon Dioxide 20 L (22-30) mmol/L BUN 16 (9-20) mg/dL Creatinine 0.79 (0.66-1.25) mg/dL Glucose 94 (74-99) mg/dL Calcium 9.3 (8.4-10.2) mg/dL Adrenal panel 10/22/17 Range/Units 08:07 Sodium 143 (137-145) mmol/L Potassium 4.1 (3.5-5.1) mmol/L Chloride 111 H (98-107) mmol/L Carbon Dioxide 20 L (22-30) mmol/L BUN 16 (9-20) mg/dL Creatinine 0.79 (0.66-1.25) mg/dL Glucose 94 (74-99) mg/dL Calcium 9.3 (8.4-10.2) mg/dL Assessment and Plan (1) Fecal impaction in rectum Narrative/Plan: Patient's stool was evacuated manually. He has additional stool proximal. Soapsuds enemas will start at this time. Magnesium citrate through PEG tube. We'll follow. Current Visit: Yes Status: Acute Code(s): K56.41 - FECAL IMPACTION SNOMED Code(s): 12739545
[2017-10-22] MEDS: WARFARIN 3 MG TAB PEG/G-TUBE SCH (16:17)
[2017-10-22] MEDS: MAGNESIUM CITRATE 296 ML BOTTLE PO ONE ×2 (16:18→17:34)
[2017-10-22 18:01] LABS: Glucose,Whole Blood 106 mg/dL (75-99)
[2017-10-22] MEDS: PIPERACILLIN-TAZOBACTAM 3.375 GM in DEXTROSE/WATER 1 50ML.BAG IVPB SCH (22:54)
--- NOTE | 2017-10-22 23:40 | P.PN ---
Subjective Progress Note Date: 10/22/17 Principal diagnosis: Acute urinary tract infection 57-year-old male with a past history of musculoskeletal disorder and chronic lower extremity contractures and DVT and Coumadin, who is a poor historian and unable to give history [facility]. Patient was recently treated forPseudomonas in her tract infection in August 2017.Patient says no to pain when asked. Patient does say yes or no and he can understand but could not able to communicate. Unable to get further review of systems. he was found have pneumoniaand urinary tract infectionas well as fecal impactionon CTabdomen and pelvis. 10/22/2017 Patient has been afebrile today. Patient did have bowel movement and constipation/stool impaction has resolved. Patient is being continued on cefepime due to previous pseudomonas UTI tract infection. Otherwise patient did complain of some throat pain today. Denied complaints of of chest pain or shortness of breath. Patient could not provide any history. Current medications reviewed. Objective - Vital Signs Vital signs: Vital Signs Temp 98 F 10/22/17 15:00 Pulse 62 10/22/17 15:00 Resp 16 10/22/17 15:00 BP 110/65 10/22/17 15:00 Pulse Ox 90 L 10/22/17 15:00 Intake & Output 10/22/17 10/22/17 10/23/17 06:59 18:59 06:59 Intake Total 100 Output Total 1325 600 300 Balance -1325 -500 -300 Weight 56.699 kg Intake: Tube Feeding 100 Output: Urine 1325 600 300 Other: Voiding Method Indwelling Catheter Indwelling Catheter # Voids 1 # Bowel Movements 0 2 - Exam Patient is lying in the bed comfortably, no acute distress, awake alert but cannot communicate HEENT: Normocephalic. Neck is supple. Pupils reactive. Nostrils clear. Oral cavity is moist. Ears reveal no drainage. Neck reveals no JVD, carotid bruits, or thyromegaly. CHEST EXAMINATION: Trachea is central. Symmetrical expansion. Lung prater clear to auscultation and percussion. diminished breath sounds basally CARDIAC: Normal S1, S2 with no gallops. No murmurs ABDOMEN: Soft. Bowel sounds normal. No organomegaly. No abdominal bruits. Extremities: reveal no edema. No clubbing or cyanosis Neurologically awake, alert. Patient does have bilateral lower activity contractures Skin: No rash or skin lesions. Psychiatric: Could not be assessed Musculoskeletal: No joint swelling or deformity. Lower extremity contractures - Labs CBC & Chem 7: 10/22/17 08:07 10/22/17 08:07 Labs: Abnormal Lab Results - Last 24 Hours (Table) 10/21/17 10/22/17 10/22/17 Range/Units 07:31 08:07 08:07 Hgb 11.3 L (13.0-17.5) gm/dL Hct 36.7 L (39.0-53.0) % MCHC 30.7 L (31.0-37.0) g/dL RDW 18.9 H (11.5-15.5) % PT (9.0-12.0) sec INR (<1.2) Chloride 111 H (98-107) mmol/L Carbon Dioxide 20 L (22-30) mmol/L POC Glucose (mg/dL) (75-99) mg/dL Urine Blood Small H (Negative) Ur Leukocyte Esterase Moderate H (Negative) Urine WBC 13 H (0-5) /hpf Urine Bacteria Rare H (None) /hpf 10/22/17 10/22/17 10/22/17 Range/Units 08:07 11:54 17:55 Hgb (13.0-17.5) gm/dL Hct (39.0-53.0) % MCHC (31.0-37.0) g/dL RDW (11.5-15.5) % PT 16.4 H (9.0-12.0) sec INR 1.8 H (<1.2) Chloride (98-107) mmol/L Carbon Dioxide (22-30) mmol/L POC Glucose (mg/dL) 111 H 106 H (75-99) mg/dL Urine Blood (Negative) Ur Leukocyte Esterase (Negative) Urine WBC (0-5) /hpf Urine Bacteria (None) /hpf Microbiology - Last 24 Hours (Table) 10/21/17 00:59 Urine Culture - Preliminary Urine,Catheterized Gram Neg Bacilli Group D Enterococcus 10/21/17 07:31 Urine Culture - Preliminary Urine,Catheterized 10/20/17 22:45 Blood Culture - Preliminary Blood No Growth after 24 hours Assessment and Plan Assessment: #1 acute urinary tract infection with history ofPseudomonasuTI. Repeat urine culturewas ordered #2 recent urinary tract infection reated with Fortaz. Patient was ALLERGY to meropenem. #3 possible Bilateral pneumonia. Gram-negative #4sepsis secondary to UTI and pneumonia #4 MS with lower extremity contractures #5 history of DVT on Coumadin #6 fecal impaction plan: patient will be continued onantibioticsin the form ofcefepime. ID was consultedfor further evaluation. Continue with IV fluids and continue the home medicationsand Coumadin monitoring. Follow-up repeat urine cultures. further recommendationsbased on the clinical course. Prognosis is guarded.
[2017-10-22 23:57] LABS: Glucose,Whole Blood 133 mg/dL (75-99)
[2017-10-23] MEDS: AMANTADINE HCL PEG/G-TUBE SCH ×2 (05:09→16:23)
[2017-10-23] MEDS: METOPROLOL TARTRATE 25 MG TAB PEG/G-TUBE SCH ×2 (05:09→17:25)
[2017-10-23] MEDS: GABAPENTIN 100 MG CAP PEG/G-TUBE SCH ×3 (05:09→17:24)
[2017-10-23 06:28] LABS: Glucose,Whole Blood 108 mg/dL (75-99)
--- NOTE | 2017-10-23 08:07 | PN ---
PROGRESS NOTE DATE OF SERVICE: 10/22/2017. REASON FOR FOLLOWUP VISIT: 1. Catheter associated urinary tract infection. 2. Sacral wound stage III. INTERVAL HISTORY: The patient is afebrile. The patient has been breathing comfortably. His Stein catheter was changed yesterday without any problem. No nausea, vomiting, or any diarrhea. EXAMINATION: Blood pressure is 110/65 with a pulse of 62, temperature of 98. He is 99% on room air. General description is a middle-aged male lying in bed in no distress. Respiratory system: Unlabored breathing, clear to auscultation anteriorly. Heart S1, S2. Regular rate and rhythm. Abdomen soft, no tenderness. LABS: Hemoglobin 11.2, white count of 8.2 with a BUN of 16, creatinine 0.79. Urine showing a gram-negative with Enterococcus. DIAGNOSTIC IMPRESSION AND PLAN: 1. Patient with catheter associated urinary tract infection with urine showing Enterococcus and gram-negative. Antibiotic will be adjusted to Zosyn to cover for both pathogens. 2. Stage II sacral wound. Aquacel Silver packing and keep the area off the pressure. MMODL / IJN: [id number] /
[2017-10-23 08:52] LABS: Anisocytosis Slight; Basophils % (A) 0 %; Eosinophils # (A) 0.6 k/uL (0-0.7); Eosinophils % (A) 7 %; HCT 36.9 % (39.0-53.0); HGB 11.5 gm/dL (13.0-17.5); Hypochromasia Slight; Lymphocytes # (A) 1.1 k/uL (1.0-4.8); Lymphocytes % (A) 12 %; MCH 26.8 pg (25.0-35.0); MCHC 31.1 g/dL (31.0-37.0); MCV 86.1 fL (80.0-100.0); Mean Platelet Volume 7.7; Monocytes # (A) 0.7 k/uL (0-1.0); Monocytes % (A) 8 %; Neutrophils # (A) 6.3 k/uL (1.3-7.7); Neutrophils % (A) 71 %; Platelet Count 261 k/uL (150-450); RBC 4.29 m/uL (4.30-5.90); RDW 17.3 % (11.5-15.5)
[2017-10-23] MEDS: PIPERACILLIN-TAZOBACTAM 3.375 GM in DEXTROSE/WATER 1 50ML.BAG IVPB SCH ×2 (08:57→16:23)
[2017-10-23] MEDS: BACLOFEN 10 MG TAB PEG/G-TUBE SCH ×3 (08:57→20:53)
[2017-10-23] MEDS: PANTOPRAZOLE SODIUM 40 MG GRANULE PKT PEG/G-TUBE SCH (08:58)
[2017-10-23] MEDS: ASCORBIC ACID 500 MG TAB PEG/G-TUBE SCH (08:58)
[2017-10-23] MEDS: FERROUS SULFATE ORAL ELIXIR 300 MG/5 ML CUP PEG/G-TUBE SCH (08:58)
[2017-10-23] MEDS: MULTIVITAMINS, THERA 1 EACH TAB PEG/G-TUBE SCH (08:59)
[2017-10-23] MEDS: CHOLECALCIFEROL 1,000 UNIT TAB PEG/G-TUBE SCH (08:59)
[2017-10-23] MEDS: HYDROcodone/APAP 7.5-325MG 1 EACH TAB PEG/G-TUBE PRN ×3 (08:59→20:53)
[2017-10-23] MEDS: MAGNESIUM OXIDE 400 MG TAB PEG/G-TUBE SCH (08:59)
[2017-10-23 09:07] LABS: INR 1.9 (<1.2)
[2017-10-23 09:09] LABS: Anion Gap 11 mmol/L; Blood Urea Nitrogen 22 mg/dL (9-20); Carbon Dioxide 21 mmol/L (22-30); Chloride 109 mmol/L (98-107); Glucose 122 mg/dL (74-99); Sodium 141 mmol/L (137-145)
[2017-10-23 09:16] LABS: Potassium 4.6 mmol/L (3.5-5.1)
[2017-10-23 12:03] LABS: Glucose,Whole Blood 128 mg/dL (75-99)
[2017-10-23] MEDS ORDERED: MAGNESIUM CITRATE 296 ML BOTTLE PEG/G-TUBE ONE (17:19)
[2017-10-23] MEDS: WARFARIN 3 MG TAB PEG/G-TUBE SCH (17:25)
[2017-10-23 18:19] LABS: Glucose,Whole Blood 88 mg/dL (75-99)
--- NOTE | 2017-10-23 19:26 | PN ---
PROGRESS NOTE CHIEF COMPLAINT: Fecal impaction. INTERVAL HISTORY: The patient is doing well today. Denies abdominal pain. He had multiple stools last night; none today. Tolerating tube feeds. PHYSICAL EXAMINATION: ABDOMEN: Soft, nondistended, nontender. RECTAL: No palpable stool on digital rectal examination. IMPRESSION: Eoydg[age]pgiop[age]wijz-old male with constipation/fecal impaction. PLAN: The patient's fecal impaction appears to be clinically resolved. Will give one additional dose of magnesium citrate to be sure that the colon is cleared of all of the stool that was identified on initial evaluation. No further surgical plans at this point. We will sign off. Please contact if needed. MMODL / IJN: [id number] /
--- NOTE | 2017-10-23 21:31 | PN ---
PROGRESS NOTE DATE OF SERVICE: 10/23/2017. BRIEF HISTORY: A 57-year-old male patient with a history of musculoskeletal disorder with chronic lower extremity contractures and DVT is brought to the ER from extended care facility and is admitted with UTI, bilateral pneumonia and fecal impaction. The patient is seen in the room lying comfortably. He is in no acute distress. VITAL SIGNS: Temperature of 97.7, pulse 67, respirations 18, blood pressure 105/65, O2 saturation 98% on room air. GENERAL: Patient is awake, alert, in no acute distress, does not communicate. HEENT: Atraumatic, normocephalic. Pupils equal and reactive to light. Extraocular movements intact. Buccal mucosa is fair. Neck is supple. No goiter or lymphadenopathy. JVD is negative. No carotid bruit heard. RESPIRATORY: Lungs are scattered rhonchi with decreased breath sounds bibasilarly. Occasional rhonchi. CARDIOVASCULAR: Heart is regular rate and rhythm without any murmurs, gallop rhythm. ABDOMEN/GI: Abdomen is soft and nontender, nondistended. Bowel sounds positive. EXTREMITIES: No edema, clubbing, cyanosis. Pulses are palpable, 2+. NEUROLOGICAL: Patient is awake and alert. No gross motor or sensory deficit. Patient does have bilateral lower extremity contractures. Skin is intact without rashes or pigmentation. MUSCULOSKELETAL: Patient does lower extremity contractures and has some impaired movement to lower extremities. LABS: Show CBC: White blood count 9.0, hemoglobin 11.5, hematocrit 36.9 and platelet count of 261. Chemical profile: Sodium 141, potassium 4.6, chloride 109, bicarb 21, BUN of 22, creatinine 0.9, glucose of 128. ASSESSMENT: 1. Acute complicated urinary tract infection. 2. Bilateral gram-negative pneumonia. 3. Sepsis secondary to urinary tract infection and pneumonia. 4. Multiple sclerosis with lower extremity contractures. 5. History of deep venous thrombosis. Patient is on Coumadin. 6. Fecal impaction. The patient remains on antibiotics, cefepime. ID is consulted. The patient remains on IV fluids. Home medication with Coumadin is continued. PT/INR is to be monitored. Await urine culture and blood cultures. The patient's fecal impaction is clinically resolved. He did have some bowel movements last night. The patient is given another dose of magnesium citrate for cleansing of the colon. No further surgical recommendations are given. Appreciate surgical input for the management in this patient. We will continue to monitor electrolytes, CBC. Discharge when stable. MMODL / IJN: [id number] /
--- NOTE | 2017-10-23 22:31 | PN ---
PROGRESS NOTE DATE OF SERVICE: 10/23/2017. REASON FOR FOLLOW UP: 1. Catheter associated urinary tract infection. 2. Sacral pressure ulcer. INTERVAL HISTORY: The patient did spike a fever last night of 101.6. However, the patient has been afebrile since then. He remains weak and lethargic. No nausea or vomiting has been noticed or any significant diarrhea per the nursing staff. EXAMINATION: Blood pressure 105/65 with a pulse of 67, temperature of 97.7. He is 98% on room air. General description is a middle-aged male lying in bed in no distress. Respiratory system: Unlabored breathing, clear to auscultation anteriorly. Heart S1, S2. Regular rate and rhythm. Abdomen soft, no tenderness. LABS: White count 9. INR is 1.9, BUN of 22, creatinine 0.99. Urine showing a Pseudomonas aeruginosa and Staph aureus. DIAGNOSTIC IMPRESSION AND PLAN: 1. Patient with catheter associated urinary tract infection we will continue Zosyn as the patient Enterococcus was sensitive to ampicillin. Repeat urine cultures will be followed. 2. Patient does have a stage II sacral pressure ulcer. Local wound care with Aquacel Silver dressing. Keep the area off the pressure. Continue supportive care. MMODL / IJN: [id number] / JOSE MIGUEL
[2017-10-24] MEDS ORDERED: GABAPENTIN 100 MG CAP ONE
[2017-10-24] MEDS: AMANTADINE HCL PEG/G-TUBE SCH ×2 (05:21→16:27)
[2017-10-24] MEDS: HYDROcodone/APAP 7.5-325MG 1 EACH TAB PEG/G-TUBE PRN ×3 (05:21→20:17)
[2017-10-24 05:45] LABS: Glucose,Whole Blood 115 mg/dL (75-99)
[2017-10-24] MEDS: GABAPENTIN 100 MG CAP PEG/G-TUBE SCH ×5 (08:00→23:28)
[2017-10-24] MEDS: PIPERACILLIN-TAZOBACTAM 3.375 GM in DEXTROSE/WATER 1 50ML.BAG IVPB SCH ×4 (08:00→23:28)
[2017-10-24] MEDS: ASCORBIC ACID 500 MG TAB PEG/G-TUBE SCH (08:02)
[2017-10-24] MEDS: METOPROLOL TARTRATE 25 MG TAB PEG/G-TUBE SCH ×2 (08:02→16:28)
[2017-10-24] MEDS: BACLOFEN 10 MG TAB PEG/G-TUBE SCH ×3 (08:03→20:17)
[2017-10-24] MEDS: FERROUS SULFATE ORAL ELIXIR 300 MG/5 ML CUP PEG/G-TUBE SCH (08:04)
[2017-10-24] MEDS: MAGNESIUM OXIDE 400 MG TAB PEG/G-TUBE SCH (08:04)
[2017-10-24] MEDS: CHOLECALCIFEROL 1,000 UNIT TAB PEG/G-TUBE SCH (08:04)
[2017-10-24] MEDS: PANTOPRAZOLE SODIUM 40 MG GRANULE PKT PEG/G-TUBE SCH (08:04)
[2017-10-24] MEDS: MULTIVITAMINS, THERA 1 EACH TAB PEG/G-TUBE SCH (08:04)
[2017-10-24 10:28] LABS: INR 1.8 (<1.2); Prothrombin Time 16.9 sec (9.0-12.0)
[2017-10-24 12:23] LABS: Glucose,Whole Blood 118 mg/dL (75-99)
[2017-10-24] MEDS: WARFARIN 3 MG TAB PEG/G-TUBE SCH (16:28)
[2017-10-24] MEDS: SCOPOLAMINE 1.5MG/72HR PATCH TRANSDERM SCH (16:28)
--- NOTE | 2017-10-24 16:56 | CDI ---
UTI associated with Stein catheter Last Revision, August 2017 Documentation Clarification Form Date: 10/24/2017 4:21:00 PM From: Ayanna Pedraza RN, CCDS Admit Date: 10/21/2017 1:40:00 AM Patient Name: Chris Marvin Visit Number: [id number] Discharge Date: ATTENTION: The Clinical Documentation Specialists (CDI) and [facility] Coding Staff appreciate your assistance in clarifying documentation. Please respond to the clarification below the line at the bottom and electronically sign. The CDI & [facility] Coding staff will review the response and follow-up if needed. Please note: Queries are made part of the Legal Health Record. If you have any questions, please contact the author of this message via ITS. Dr. Rekha Schmidt A diagnosis of UTI has been documented in the ED, H/P and progress notes. History/Risk factors: DVT, Renal Disease, UTI'S, Wounds, Contractures, Dysarthria, Dysphagia, PEG Tube, Pseudomonas UTI Per documentation in the Ed and ID notes this patient was admitted with an indwelling Stein catheter for urinary retention last changed on 10/12/17 Clinical Indicators: Present to ER for evaluation of fever. Urinalysis: Moderate blood, Positive Nitrite, Ur Leukocyte Esterase Large Urine culture: Pseudomonas Aeruginosa Lab results: WBC 14.0 ID Consult: Urinary retention requiring chronic Stein. Sepsis, elevated white count, tachycardia, course is likely catheter -associated urinary tract infection Treatment: Change Stein catheter obtaining a urine culture from new Stein Zosyn IV Monitor Labs In your professional opinion, can you please clarify the etiology of the UTI, if known? Stein catheter UTI not related to catheter Other condition, please specify Unable to determine If an infective organism is present, please specify cause and effect relationship if applicable. Please continue to document in your progress notes and discharge summary in order to capture severity of illness and risk of mortality. Include clinical findings that support your diagnosis. MTDD
[2017-10-24 18:33] LABS: Glucose,Whole Blood 109 mg/dL (75-99)
--- NOTE | 2017-10-24 18:35 | PN ---
PROGRESS NOTE DATE OF SERVICE: 10/24/2017 REASON FOR FOLLOWUP: Pseudomonas catheter-associated urinary intact infection. INTERVAL HISTORY: The patient is afebrile, has been breathing comfortably. No nausea or vomiting has been noticed or any diarrhea. Remains nonverbal and unable to provide any history. PHYSICAL EXAMINATION: Blood pressure 118/71 with a pulse of 71, temperature 97.4. He is 97% on room air. General description is a middle-aged male lying in bed in no distress. RESPIRATORY SYSTEM: Unlabored breathing. Clear to auscultation anteriorly. HEART: S1, S2. Regular rate and rhythm. ABDOMEN: Soft. No tenderness. LABS: Hemoglobin 11.5, white count of 9.0. Repeat urine showing Pseudomonas aeruginosa that is resistant to the oral Cipro. DIAGNOSTIC IMPRESSION AND PLAN: 1. Patient with pseudomonas catheter-associated urinary tract infection, currently on Zosyn. That will be continued. Will see if the correction can do Fortaz through a peripheral IV for the next 3 to 5 days so we can avoid a PICC line, as we do not have any oral option available. 2. Sacral pressure ulcer. Local wound care with Aquacel Silver dressing. Keep the area off the pressure. MMODL / IJN: [id number] /
--- NOTE | 2017-10-24 22:26 | PN ---
PROGRESS NOTE DATE OF SERVICE: 10/24/2017 The patient is seen in the room, is admitted for catheter-associated UTI, sacral decubitus ulcer and bilateral pneumonia causing sepsis. GENERAL: Patient is awake and alert. He is in no acute distress. VITAL SIGNS: Temperature of 101.6, pulse 67, respirations 18, O2 saturation 98%. Blood pressure 105/65. HEENT: Atraumatic, normocephalic. Pupils equal and reactive to light. Extraocular movements intact. Buccal mucosa is moist. Neck is supple. No goiter or lymphadenopathy. JVD is negative. No carotid bruit heard. RESPIRATORY SYSTEM: Lungs are clear to auscultate. No rales, rhonchi or wheezes. CARDIOVASCULAR SYSTEM: Heart is regular rate and rhythm without any murmurs, gallop rhythm. ABDOMEN/GI: Abdomen is soft and nontender, nondistended. No organomegaly. Bowel sounds positive. LABS: PT 16.9, INR of 1.8. Glucose 109. ASSESSMENT: 1. Catheter-associated complicated urinary tract infection. 2. Bilateral gram-negative pneumonia. 3. Sepsis secondary to urinary tract infection and pneumonia. 4. Multiple sclerosis with lower extremity contractures. 5. Sacral pressure ulcer. 6. History of deep venous thrombosis. 7. Fecal impaction. The patient remains on IV antibiotics. ID is following the case and IV antibiotics are adjusted to IV Zosyn. Await further recommendation for the duration of IV antibiotic. The patient has stage II sacral pressure ulcer. Continue local care with Aquacel silver dressing and pressure off the area. The patient's fecal impaction is clinically resolved. Will continue to monitor electrolytes, CBC and I's and O's closely. Discharge planning per ID recommendations. MMODL / IJN: [id number] /
[2017-10-25] MEDS: HYDROcodone/APAP 7.5-325MG 1 EACH TAB PEG/G-TUBE PRN ×4 (02:26→15:42)
[2017-10-25 02:41] LABS: Glucose,Whole Blood 101 mg/dL (75-99)
[2017-10-25 06:06] LABS: Glucose,Whole Blood 87 mg/dL (75-99)
[2017-10-25] MEDS: GABAPENTIN 100 MG CAP PEG/G-TUBE SCH ×3 (06:22→17:43)
[2017-10-25] MEDS: AMANTADINE HCL PEG/G-TUBE SCH ×2 (06:22→17:43)
[2017-10-25] MEDS: METOPROLOL TARTRATE 25 MG TAB PEG/G-TUBE SCH ×2 (06:22→17:43)
[2017-10-25 08:05] VITALS: RESP 20
[2017-10-25] MEDS: ASCORBIC ACID 500 MG TAB PEG/G-TUBE SCH (08:13)
[2017-10-25] MEDS: PANTOPRAZOLE SODIUM 40 MG GRANULE PKT PEG/G-TUBE SCH (08:13)
[2017-10-25] MEDS: MULTIVITAMINS, THERA 1 EACH TAB PEG/G-TUBE SCH (08:13)
[2017-10-25] MEDS: FERROUS SULFATE ORAL ELIXIR 300 MG/5 ML CUP PEG/G-TUBE SCH (08:13)
[2017-10-25] MEDS: PIPERACILLIN-TAZOBACTAM 3.375 GM in DEXTROSE/WATER 1 50ML.BAG IVPB SCH (08:13)
[2017-10-25] MEDS: MAGNESIUM OXIDE 400 MG TAB PEG/G-TUBE SCH (08:13)
[2017-10-25] MEDS: BACLOFEN 10 MG TAB PEG/G-TUBE SCH ×2 (08:13→15:41)
[2017-10-25] MEDS: CHOLECALCIFEROL 1,000 UNIT TAB PEG/G-TUBE SCH (08:13)
[2017-10-25 10:51] VITALS: BMI 18.3
[2017-10-25 11:00] LABS: INR 2.1 (<1.2); Prothrombin Time 18.6 sec (9.0-12.0)
[2017-10-25 11:59] LABS: Glucose,Whole Blood 113 mg/dL (75-99)
[2017-10-25 16:00] VITALS: BP 135/69; PULSE 74; TEMP 97.7
--- NOTE | 2017-10-25 16:36 | DS ---
DISCHARGE SUMMARY DATE OF ADMISSION: 10/20/2017. DATE OF DISCHARGE: 10/25/2017 ADMISSION DIAGNOSES: 1. Acute urinary tract infection with history of pseudomonas urinary tract infection. 2. Bilateral pneumonia. 3. Sepsis secondary to urinary tract infection and pneumonia. 4. Multiple sclerosis with lower extremity contractures. 5. History of deep venous thrombosis. 6. Fecal impaction. DISCHARGE DIAGNOSES: 1. Catheter-associated complicated urinary tract infection. 2. Bilateral Gram-negative pneumonia. 3. Sepsis secondary to urinary tract infection and pneumonia. 4. Multiple sclerosis with lower extremity contractures. 5. Sacral pressure ulcer. 6. History of deep venous thrombosis. 7. Fecal impaction. BRIEF HISTORY ON THIS PATIENT: This is a 57-year-old male patient with a history of MS and lower extremity contractures who was brought into ED from an extended-care facility with complaint of fever. Patient was recently treated for a pseudomonas UTI and the concern was recurrence of pseudomonas being the cause of infection and fever. PAST MEDICAL HISTORY: As described above. BRIEF HOSPITAL COURSE: The patient was admitted to the regular floor, was started on IV antibiotics cefepime. ID was consulted for further recommendation for an antibiotic treatment. Blood cultures and urine cultures were done. The patient was given IV fluids. Home medications were continued. The patient was given a Dulcolax suppository and enema without any results for fecal impaction. Surgical consultation was done. The patient was seen by ID also, who recommended changing patient's Stein catheter and obtain repeat cultures. Blood cultures were repeated. The patient was continued on cefepime. Patient was given Aquacel Silver packing for his decubitus ulcer. Patient's repeat urine cultures showed pseudomonas, enterococcus and MRSA. IV antibiotics were adjusted by ID. The patient was recommended to be switched to IV Fortaz for a total of 3 to 5 days of post-discharge antibiotic treatment. Patient remained stable. Respiratory status improved. He did not have any further complications. Labs -- CBC improved. White blood count improved from 14,000 at the time of admission to normal at discharge. The patient did not have any further complications. PHYSICAL EXAMINATION: At the time of discharge, vital signs are stable with temperature of 97.8, pulse 72, respiration 20, blood pressure 121/59, oxygen saturation of 98%. HEENT: Atraumatic, normocephalic. Pupils equal and reactive to light. Extraocular movements intact. Buccal mucosa fair. NECK: Supple. No goiter or lymphadenopathy. RESPIRATORY SYSTEM: Lungs are clear to auscultation without any rales or rhonchi. HEART: Regular rate and rhythm without any murmurs or gallop rhythm. ABDOMEN: Soft, nontender, nondistended. Bowel sounds positive. EXTREMITIES: No edema, clubbing or cyanosis. The patient does have bilateral lower extremity contractures. DISCHARGE MEDICATIONS: 1. DuoNeb inhalation q.4 hours p.r.n. 2. Amantadine 100 mg via PEG every 12 hours. 3. Vitamin C 250 mg via PEG daily. 4. 5 mg via PEG t.i.d. 5. Fortaz 2 grams IV q.8 hours. 6. Vitamin D3 1000 units via PEG daily. 7. Colace 100 mg via PEG b.i.d. 8. Iron sulfate 300 mg via PEG daily. 9. Neurontin 500 mg q.6 hours via PEG. 10.Mag-Ox 400 mg via PEG tube daily. 11.Lopressor 25 mg via PEG q.12 hours. 12.Protonix 40 mg via PEG tube daily. 13.Coumadin 3 mg via PEG tube at 1800 hours. The patient was discharged in a stable condition with a plan to continue above medications and follow up with the primary care physician. MMODL / IJN: [id number] /
--- NOTE | 2017-10-25 16:57 | PN ---
PROGRESS NOTE DATE OF SERVICE: 10/25/2017. REASON FOR FOLLOWUP: 1. Catheter associated urinary tract infection. 2. Sacral wound. INTERVAL HISTORY: The patient is afebrile, has been breathing comfortably. He is hemodynamically stable. Tolerating tube feeds. No nausea, vomiting has been noticed or any worsening diarrhea per the nursing staff. EXAMINATION: Blood pressure 121/59 with a pulse of 72, temperature 97.8. He is 98% on room air. General description is middle-aged male lying in bed in no distress. Respiratory system: Unlabored breathing, clear to auscultation anteriorly. Heart S1, S2. Regular rate and rhythm. Abdomen soft no tenderness. LABS: INR is 2.1. Repeat urine showing only Pseudomonas. Additional urine cultures did show multiple pathogens including Enterococcus, Pseudomonas and MRSA with question of possible Stein colonization. DIAGNOSTIC IMPRESSION AND PLAN: Patient with catheter associated urinary tract infection, urine now predominantly Pseudomonas after changes of the Stein catheter with previous three organisms grown from old catheter, could have been representing possible Stein colonization. We will direct therapy towards the Pseudomonas with Fortaz, 3-5 days through peripheral IV. No need for a PICC line. This was discussed with nursing. MMODL / IJN: [id number] /
[2017-10-25] MEDS: WARFARIN 3 MG TAB PEG/G-TUBE SCH (17:43)
== END 2017-10-25 21:19 | DRG 698 ==
LOC: EC 22:37 → 4MS4W 10-21 01:40
PROVIDERS: ADMIT Hospitalist; ATTEND Hospitalist
DX: T83.518A Infection and inflammatory reaction due to other urinary catheter, initial encounter (principal); A41.9 Sepsis, unspecified organism; J15.6 Pneumonia due to other Gram-negative bacteria; L89.152 Pressure ulcer of sacral region, stage 2; N39.0 Urinary tract infection, site not specified; G35 Multiple sclerosis; F32.9 Major depressive disorder, single episode, unspecified; K56.41 Fecal impaction; Y84.6 Urinary catheterization as the cause of abnormal reaction of the patient, or of later complication, without mention of misadventure at the time of the procedure; Z79.01 Long term (current) use of anticoagulants; Z79.899 Other long term (current) drug therapy; Z86.718 Personal history of other venous thrombosis and embolism; Z88.1 Allergy status to other antibiotic agents; Z93.1 Gastrostomy status; B95.62 Methicillin resistant Staphylococcus aureus infection as the cause of diseases classified elsewhere; B96.5 Pseudomonas (aeruginosa) (mallei) (pseudomallei) as the cause of diseases classified elsewhere
CPT/HCPCS: 36415; 71045; 74177; 80048; 80053; 81001; 82272; 83605; 83735; 84484; 85025; 85610; 85730; 87040; 87077; 87086; 87186; 87502; 93005; 94760; 96361; 96365; 96366; 96367; 99285

== ENCOUNTER 2017-12-28 16:15 | Inpatient (IN) | payer MEDICARE, OTHER ==
[2017-12-28] MEDS ORDERED: SODIUM CHLORIDE 0.9% 1,000 ML IV STA (16:38)
[2017-12-28] MEDS ORDERED: SODIUM CHLORIDE 0.9% 1,000 ML IV ONE (16:47)
[2017-12-28] MEDS ORDERED: ACETAMINOPHEN TAB 500 MG TAB PO STA (16:47)
--- NOTE | 2017-12-28 16:51 | ED ---
General Adult HPI - General Chief complaint: Altered Mental Status Stated complaint: Sepsis Time Seen by Provider: 12/28/17 16:17 Source: family, EMS, RN notes reviewed, old records reviewed Mode of arrival: EMS Limitations: altered mental status - History of Present Illness Initial comments: 57-year-old male presenting for evaluation of fever and lethargy. Patient is primarily bedbound, history of MS. Noted to have an elevated temperature over the past 2448 hrs. He [facility] the [facility]. Symptoms have failed to improve. According to his sister was is also his advocate he is normally more responsive, able to answer questions, he does watch television and is somewhat engaged, over the past 24 hours his level of alertness has declined and he seemed more lethargic. His sister states he has had a mild cough. Patient has an indwelling Stein catheter there is concern for bladder infection. No history of vomiting or diarrhea. No history obtained from the patient. - Related Data Home Medications Medication Instructions Recorded Confirmed Ferrous Sulfate Oral Elixir 300 mg PEG/G-TUBE DAILY 08/07/17 12/28/17 [Feosol Liquid] Gabapentin 250mg/5ml 500 mg PEG/G-TUBE Q6H 08/07/17 12/28/17 Ipratropium-Albuterol Nebulize 3 ml INHALATION RT-Q4H PRN 08/07/17 12/28/17 [Duoneb 0.5 mg-3 mg/3 ml Soln] Jevity 1.5 Sherman Liquid 2 can PEG/G-TUBE TID 08/07/17 12/28/17 Magnesium Oxide [Magox 400] 400 mg PEG/G-TUBE DAILY 08/07/17 12/28/17 Metoprolol Tartrate [Lopressor] 25 mg PEG/G-TUBE Q12H 08/07/17 12/28/17 Amantadine 50mg/5ml 100 mg PEG/G-TUBE BID 12/28/17 12/28/17 Ascorbic Acid [Vitamin C] 250 mg PO DAILY 12/28/17 12/28/17 Baclofen Oral Susp 5mg/Ml 5 mg PEG/G-TUBE TID 12/28/17 12/28/17 Cholecalciferol [Vitamin D3] 1,000 unit PEG/G-TUBE DAILY 12/28/17 12/28/17 Docusate Oral Soln [Colace Oral 100 mg PO BID 12/28/17 12/28/17 Soln] Multivitamins, Thera Liquid 5 ml PO DAILY 12/28/17 12/28/17 [Theragran Liquid (formulary)] Nexium 20mg Packet 20 mg PEG/G-TUBE DAILY 12/28/17 12/28/17 OXcarbazepine 300MG/5ML SUSP 150 mg PEG/G-TUBE BID 12/28/17 12/28/17 [Trileptal Oral Susp] Scopolamine 1.5MG/72Hr Patch 1 patch TRANSDERM Q72H 12/28/17 12/28/17 [Transderm-Scop 1.5MG/72Hr Patch] Sodium Chloride [[place]] 1 spray EA NOSTRIL Q4H PRN 12/28/17 12/28/17 Warfarin [Coumadin] 2.5 mg PEG/G-TUBE DAILY 12/28/17 12/28/17 cefTAZidime [Fortaz] 1 gm IV Q8HR 12/28/17 12/28/17 guaiFENesin [guaiFENesin Oral 200 mg PEG/G-TUBE Q4H PRN 12/28/17 12/28/17 Solution] Previous Rx's Medication Instructions Recorded HYDROcodone/APAP 7.5-325MG [Heath 1 tab PEG/G-TUBE Q4H PRN #20 tab 08/14/17 7.5-325] Allergies Allergy/AdvReac Type Severity Reaction Status Date / Time meropenem [From Merrem] Allergy Rash/Hives Verified 12/28/17 16:27 Review of Systems ROS Statement: Those systems with pertinent positive or pertinent negative responses have been documented in the HPI. ROS Other: All systems not noted in ROS Statement are negative. Past Medical History Past Medical History: Deep Vein Thrombosis (DVT), Musculoskeletal Disorder, Renal Disease Additional Past Medical History / Comment(s): pt poor historian-cog impariment/ Impaired speech, NPO-peg tube,DVT-arm, MS, IDC ,INCONT OF BOWEL. UTI'S, SACRALWOUND,CONTRACTURES,DYSARTHRIA/ANARTHRIA/DYSPHAGIA. BEDBOUND, RACHEL LIFT TO W/C. History of Any Multi-Drug Resistant Organisms: MRSA Date of last positivie culture/infection: 2015 MDRO Source:: nose Additional Past Surgical History / Comment(s): PEG, HX OF GASTROSTOMY Past Anesthesia/Blood Transfusion Reactions: Unable to Obtain Past Psychological History: Depression Smoking Status: Never smoker Past Alcohol Use History: None Reported Past Drug Use History: None Reported - Past Family History Father Family Medical History: Unable to Obtain Mother Family Medical History: Unable to Obtain General Exam Limitations: altered mental status General appearance: lethargic, cachectic Head exam: Present: atraumatic, normocephalic Eye exam: Present: normal appearance, PERRL ENT exam: Present: mucous membranes dry Neck exam: Present: normal inspection. Absent: meningismus Respiratory exam: Present: rhonchi, decreased breath sounds. Absent: respiratory distress Cardiovascular Exam: Present: regular rate, normal rhythm GI/Abdominal exam: Present: soft, other (PEG tube in place, no signs of surrounding cellulitis). Absent: distended, tenderness Rectal exam: Present: other (Sacral decubitus ulcer, bandage clean dry and intact) Extremities exam: Present: other (Contraction of bilateral lower extremities.) Skin exam: Present: warm, dry, intact. Absent: cyanosis, diaphoretic Course Vital Signs 12/28/17 12/28/17 16:45 18:21 Temperature 101.7 F H 101.3 F H Pulse Rate 90 96 Respiratory 22 18 Rate Blood Pressure 140/69 106/65 O2 Sat by Pulse 98 99 Oximetry EKG Findings - EKG Comments: EKG Findings:: EKG, normal sinus rhythm ventricular rate of 90, NC interval 1:30 , castration 76, QTC 01/19/2012 very poor baseline quality, however no definitive signs of ischemia Medical Decision Making - Medical Decision Making 57-year-old male presenting with fever and confusion. Patient was being treated with antibiotics as an outpatient for urinary tract infection. Laboratory studies were obtained yesterday, these records were reviewed, there was 500 leukocytes in urinalysis yesterday as well as CBC showing leukocytosis at 14,000. Patient was started on antibiotics, he remained febrile and confused. He was transported for further evaluation and treatment. Laboratory studies obtained in the emergency Department, white blood cell count 9.8, hemoglobin 11.3, electrolytes within normal limits, lactic acid normal. Urinalysis is positive for nitrate, 16 wbc's and bacteria. Influenza negative, chest x-ray negative for pneumonia, CT the head is negative for intracranial hemorrhage, there is atrophy and chronic ischemic changes. Patient is started on antibiotics awaiting culture results. He is given ceftriaxone and vancomycin in the emergency department. He will be admitted for further evaluation treatment. Case discussed with Dr. Faust who will accept admission. - Lab Data Result diagrams: 12/28/17 16:28 12/28/17 16:28 Lab Results 12/28/17 12/28/17 12/28/17 Range/Units 16:28 16:28 16:28 WBC 9.8 (3.8-10.6) k/uL RBC 4.13 L (4.30-5.90) m/uL Hgb 11.3 L (13.0-17.5) gm/dL Hct 35.6 L (39.0-53.0) % MCV 86.2 (80.0-100.0) fL MCH 27.3 (25.0-35.0) pg MCHC 31.6 (31.0-37.0) g/dL RDW 15.9 H (11.5-15.5) % Plt Count 252 (150-450) k/uL Neutrophils % 78 % Lymphocytes % 8 % Monocytes % 9 % Eosinophils % 2 % Basophils % 0 % Neutrophils # 7.6 (1.3-7.7) k/uL Lymphocytes # 0.8 L (1.0-4.8) k/uL Monocytes # 0.9 (0-1.0) k/uL Eosinophils # 0.2 (0-0.7) k/uL Basophils # 0.0 (0-0.2) k/uL Sodium 141 (137-145) mmol/L Potassium 4.5 (3.5-5.1) mmol/L Chloride 105 (98-107) mmol/L Carbon Dioxide 23 (22-30) mmol/L Anion Gap 13 mmol/L BUN 21 H (9-20) mg/dL Creatinine 0.90 (0.66-1.25) mg/dL Est GFR (CKD-EPI)AfAm >90 (>60 ml/min/1.73 sqM) Est GFR (CKD-EPI)NonAf >90 (>60 ml/min/1.73 sqM) Glucose 97 (74-99) mg/dL Plasma Lactic Acid Taurus 0.7 (0.7-2.0) mmol/L Calcium 9.0 (8.4-10.2) mg/dL Total Bilirubin 0.3 (0.2-1.3) mg/dL AST 22 (17-59) U/L ALT 27 (21-72) U/L Alkaline Phosphatase 90 (38-126) U/L Total Protein 6.6 (6.3-8.2) g/dL Albumin 3.2 L (3.5-5.0) g/dL Urine Color Urine Appearance (Clear) Urine pH (5.0-8.0) Ur Specific Leonidas (1.001-1.035) Urine Protein (Negative) Urine Glucose (UA) (Negative) Urine Ketones (Negative) Urine Blood (Negative) Urine Nitrite (Negative) Urine Bilirubin (Negative) Urine Urobilinogen (<2.0) mg/dL Ur Leukocyte Esterase (Negative) Urine RBC (0-5) /hpf Urine WBC (0-5) /hpf Urine Bacteria (None) /hpf Influenza Type A RNA (Not Detectd) Influenza Type B (PCR) (Not Detectd) 12/28/17 12/28/17 Range/Units 16:28 16:28 WBC (3.8-10.6) k/uL RBC (4.30-5.90) m/uL Hgb (13.0-17.5) gm/dL Hct (39.0-53.0) % MCV (80.0-100.0) fL MCH (25.0-35.0) pg MCHC (31.0-37.0) g/dL RDW (11.5-15.5) % Plt Count (150-450) k/uL Neutrophils % % Lymphocytes % % Monocytes % % Eosinophils % % Basophils % % Neutrophils # (1.3-7.7) k/uL Lymphocytes # (1.0-4.8) k/uL Monocytes # (0-1.0) k/uL Eosinophils # (0-0.7) k/uL Basophils # (0-0.2) k/uL Sodium (137-145) mmol/L Potassium (3.5-5.1) mmol/L Chloride (98-107) mmol/L Carbon Dioxide (22-30) mmol/L Anion Gap mmol/L BUN (9-20) mg/dL Creatinine (0.66-1.25) mg/dL Est GFR (CKD-EPI)AfAm (>60 ml/min/1.73 sqM) Est GFR (CKD-EPI)NonAf (>60 ml/min/1.73 sqM) Glucose (74-99) mg/dL Plasma Lactic Acid Taurus (0.7-2.0) mmol/L Calcium (8.4-10.2) mg/dL Total Bilirubin (0.2-1.3) mg/dL AST (17-59) U/L ALT (21-72) U/L Alkaline Phosphatase (38-126) U/L Total Protein (6.3-8.2) g/dL Albumin (3.5-5.0) g/dL Urine Color Light Yellow Urine Appearance Clear (Clear) Urine pH 8.0 (5.0-8.0) Ur Specific Leonidas 1.010 (1.001-1.035) Urine Protein 1+ H (Negative) Urine Glucose (UA) Negative (Negative) Urine Ketones Negative (Negative) Urine Blood Small H (Negative) Urine Nitrite Positive (Negative) Urine Bilirubin Negative (Negative) Urine Urobilinogen <2.0 (<2.0) mg/dL Ur Leukocyte Esterase Moderate H (Negative) Urine RBC 7 H (0-5) /hpf Urine WBC 16 H (0-5) /hpf Urine Bacteria Few H (None) /hpf Influenza Type A RNA Not Detected (Not Detectd) Influenza Type B (PCR) Not Detected (Not Detectd) Disposition Clinical Impression: UTI (urinary tract infection), Sepsis, Altered mental status Disposition: ADMITTED IP TO THIS [facility] Condition: Stable Referrals: Brenden Olivares DO [Primary Care Provider] - 1-2 days Decision to Admit Reason: Admit from EC Decision Date: 12/28/17 Decision Time: 18:30
[2017-12-28 17:00] LABS: Basophils % (A) 0 %; Eosinophils % (A) 2 %; HCT 35.6 % (39.0-53.0); HGB 11.3 gm/dL (13.0-17.5); Lymphocytes # (A) 0.8 k/uL (1.0-4.8); Lymphocytes % (A) 8 %; MCH 27.3 pg (25.0-35.0); MCHC 31.6 g/dL (31.0-37.0); MCV 86.2 fL (80.0-100.0); Mean Platelet Volume 8.6; Monocytes # (A) 0.9 k/uL (0-1.0); Monocytes % (A) 9 %; Neutrophils # (A) 7.6 k/uL (1.3-7.7); Neutrophils % (A) 78 %; Platelet Count 252 k/uL (150-450); RBC 4.13 m/uL (4.30-5.90); RDW 15.9 % (11.5-15.5); WBC 9.8 k/uL (3.8-10.6)
[2017-12-28 17:01] LABS: Eosinophils # (A) 0.2 k/uL (0-0.7)
[2017-12-28 17:06] LABS: Appearance,Urine Clear (Clear); Bacteria,Urine Few /hpf; Bilirubin,Urine Negative (Negative); Blood,Urine Small (Negative); Color,Urine Light Yellow; Glucose,Urine (UA) Negative (Negative); Ketones,Urine Negative (Negative); Leukocyte Esterase,Urine Moderate (Negative); Nitrite,Urine Positive (Negative); Protein,Urine 1+ (Negative); RBC,Urine 7 /hpf (0-5); Urobilinogen,Urine <2.0 mg/dL (<2.0); WBC,Urine 16 /hpf (0-5)
[2017-12-28 17:15] LABS: ALT 27 U/L (21-72); AST 22 U/L (17-59); Albumin 3.2 g/dL (3.5-5.0); Alkaline Phosphatase 90 U/L (38-126); Anion Gap 13 mmol/L; Blood Urea Nitrogen 21 mg/dL (9-20); Carbon Dioxide 23 mmol/L (22-30); Chloride 105 mmol/L (98-107); Glucose 97 mg/dL (74-99); Potassium 4.5 mmol/L (3.5-5.1); Sodium 141 mmol/L (137-145); Total Bilirubin 0.3 mg/dL (0.2-1.3); Total Protein 6.6 g/dL (6.3-8.2)
[2017-12-28] MEDS ORDERED: VANCOMYCIN IV PER PHARMACY 1 EACH MISC MISCELLANE PRN (17:26)
[2017-12-28] MEDS ORDERED: cefTRIAXone IN SWFI 2,000 MG/20 ML SYRINGE IVP STA (17:26)
[2017-12-28] MEDS ORDERED: VANCOMYCIN 1,250 MG in SODIUM CHLORIDE 0.9% 250 ML IVPB STA (17:36)
--- NOTE | 2017-12-28 18:03 | CT ---
EXAMINATION TYPE: CT brain wo con DATE OF EXAM: 12/28/2017 COMPARISON: NONE HISTORY: Fever, altered mental status CT DLP: 811.2 mGycm Automated exposure control for dose reduction was used. FINDINGS: There is diffuse cerebral cortical atrophy. There is extensive hypodensity in the periventricular whi te matter. There is no mass effect nor midline shift. There is no sign of intracranial hemorrhage. Th e calvarium is intact. IMPRESSION: CEREBRAL ATROPHY AND CHRONIC SMALL VESSEL ISCHEMIA. NO ACUTE INTRACRANIAL ABNORMALITY.
--- NOTE | 2017-12-28 18:19 | XR ---
EXAMINATION TYPE: XR chest 2V DATE OF EXAM: 12/28/2017 COMPARISON: 10/20/2017 HISTORY: Fever TECHNIQUE: Frontal and lateral views of the chest are obtained. FINDINGS: There is no heart failure nor confluent pneumonic infiltrate. There are old left-sided hea led rib fractures. Costophrenic angles are clear. Heart size is normal. IMPRESSION: No active cardiopulmonary disease. There is clearing of the infiltrates and mild atelect asis compared to old exam.
[2017-12-28] MEDS ORDERED: ACETAMINOPHEN TAB 325 MG TAB PO PRN (18:26)
[2017-12-28] MEDS ORDERED: NALOXONE 0.4 MG/ML 1 ML VIAL IV PRN ×2 (18:26→20:17)
[2017-12-28] MEDS ORDERED: ONDANSETRON 4 MG/2 ML VIAL IVP PRN (20:17)
[2017-12-28] MEDS ORDERED: IPRATROPIUM-ALBUTEROL 3 ML NEB INHALATION PRN (20:24)
[2017-12-28] MEDS ORDERED: guaiFENesin SYRUP 100MG/5ML 200 MG/10 ML CUP PEG/G-TUBE PRN (20:24)
--- NOTE | 2017-12-28 20:43 | P.HPIM ---
History of Present Illness H&P Date: 12/28/17 Chief Complaint: Lethargy 57-year-old male presenting for evaluation of fever and lethargy. Patient is primarily bedbound because of history of MS. [facility] and he was noted to have a temperature of 100.3. Patient is nonverbal and all of this history was taken from his sister over the phone. He was given IV cefepime at the jail yesterday and today. Today in the afternoon he had a right- sided PICC line placed at the jail. Symptoms have failed to improve and because of that he was taken to the emergency department. According to his sister who is also his advocate, at baseline he is normally more responsive, able to answer questions with few words or nods, he does watch television and is somewhat engaged, however over the past 24 hours his level of alertness has declined and he seemed more lethargic. His sister states he has had a mild cough as well. Last month patient was admitted to the hospital because of urinary tract infection and weakness. He was treated with about 2 weeks of IV antibiotics after discharge. He grew Pseudomonas, enterococcus and MRSA in the urine. According to the sister is not clear when this Stein catheter was changed. Sister denied any history of vomiting, chest or abdominal pain or diarrhea. Also according to the sister patient is currently 75% better compared to his baseline. Review of Systems Unobtainable Past Medical History Past Medical History: Deep Vein Thrombosis (DVT), Musculoskeletal Disorder, Pneumonia, Renal Disease Additional Past Medical History / Comment(s): MSpt poor historian-cog impariment / Impaired speech, NPO-peg tube,DVT-arm, , IDC ,INCONT OF BOWEL. IDC-UTI'S/ SEPSIS ,HX SACRALWOUND,CONTRACTURES,DYSARTHRIA/ANARTHRIA/DYSPHAGIA. BEDBOUND, RACHEL LIFT TO W/C. History of Any Multi-Drug Resistant Organisms: MRSA Date of last positivie culture/infection: 10/21/17 MDRO Source:: URINE Additional Past Surgical History / Comment(s): PEG TUBE, HX OF GASTROSTOMY, PICC LINE 08/07/17 .REMOVED. NEW PICC LINE PLACED 12-28-16 (RT) Past Anesthesia/Blood Transfusion Reactions: Unable to Obtain Past Psychological History: Depression Additional Psychological History / Comment(s): PT RESIDES AT [place] [phone] Smoking Status: Never smoker Past Alcohol Use History: None Reported Past Drug Use History: None Reported - Past Family History Father Family Medical History: Unable to Obtain Mother Family Medical History: Unable to Obtain Medications and Allergies Home Medications Medication Instructions Recorded Confirmed Type Ferrous Sulfate Oral Elixir 300 mg PEG/G-TUBE DAILY 08/07/17 12/28/17 History [Feosol Liquid] Gabapentin 250mg/5ml 500 mg PEG/G-TUBE Q6H 08/07/17 12/28/17 History Ipratropium-Albuterol Nebulize 3 ml INHALATION RT-Q4H PRN 08/07/17 12/28/17 History [Duoneb 0.5 mg-3 mg/3 ml Soln] Jevity 1.5 Sherman Liquid 2 can PEG/G-TUBE TID 08/07/17 12/28/17 History Magnesium Oxide [Magox 400] 400 mg PEG/G-TUBE DAILY 08/07/17 12/28/17 History Metoprolol Tartrate [Lopressor] 25 mg PEG/G-TUBE Q12H 08/07/17 12/28/17 History HYDROcodone/APAP 7.5-325MG [[place] 1 tab PEG/G-TUBE Q4H PRN #20 tab 08/14/17 Rx 7.5-325] Amantadine 50mg/5ml 100 mg PEG/G-TUBE BID 12/28/17 12/28/17 History Ascorbic Acid [Vitamin C] 250 mg PO DAILY 12/28/17 12/28/17 History Baclofen Oral Susp 5mg/Ml 5 mg PEG/G-TUBE TID 12/28/17 12/28/17 History Cholecalciferol [Vitamin D3] 1,000 unit PEG/G-TUBE DAILY 12/28/17 12/28/17 History Docusate Oral Soln [Colace Oral 100 mg PO BID 12/28/17 12/28/17 History Soln] Multivitamins, Thera Liquid 5 ml PO DAILY 12/28/17 12/28/17 History [Theragran Liquid (formulary)] Nexium 20mg Packet 20 mg PEG/G-TUBE DAILY 12/28/17 12/28/17 History OXcarbazepine 300MG/5ML SUSP 150 mg PEG/G-TUBE BID 12/28/17 12/28/17 History [Trileptal Oral Susp] Scopolamine 1.5MG/72Hr Patch 1 patch TRANSDERM Q72H 12/28/17 12/28/17 History [Transderm-Scop 1.5MG/72Hr Patch] Sodium Chloride [Dustin] 1 spray EA NOSTRIL Q4H PRN 12/28/17 12/28/17 History Warfarin [Coumadin] 2.5 mg PEG/G-TUBE DAILY 12/28/17 12/28/17 History cefTAZidime [Fortaz] 1 gm IV Q8HR 12/28/17 12/28/17 History guaiFENesin [guaiFENesin Oral 200 mg PEG/G-TUBE Q4H PRN 12/28/17 12/28/17 History Solution] Allergies Allergy/AdvReac Type Severity Reaction Status Date / Time meropenem [From Merrem] Allergy Rash/Hives Verified 12/28/17 16:27 Physical Exam Vitals: Vital Signs Temp Pulse Pulse Resp BP BP Pulse Ox 12/28/17 19:31 100.9 F H 90 16 114/77 97 12/28/17 18:21 101.3 F H 96 18 106/65 99 12/28/17 16:45 101.7 F H 90 22 140/69 98 Intake and Output 12/28/17 12/28/17 12/28/17 06:59 14:59 22:59 Other: Weight 62.324 kg Patient is lying in the bed comfortably, no acute distress, awake alert but cannot communicate HEENT: Normocephalic. Neck is supple. Pupils reactive. Nostrils clear. Oral cavity is moist. Ears reveal no drainage. Neck reveals no JVD, carotid bruits, or thyromegaly. CHEST: Trachea is central. Symmetrical expansion. Lung prater clear to auscultation and percussion. CARDIAC: Normal S1, S2 with no gallops. No murmurs , no pedal edema ABDOMEN: Soft. Bowel sounds normal. No organomegaly. No abdominal bruits. Extremities: reveal no edema. No clubbing or cyanosis Neurologically awake, alert. Patient does have bilateral lower activity contractures Skin: No rash or skin lesions. Psychiatric: Could not be assessed Musculoskeletal: Multiple joint deformities. Lower extremity contractures Results CBC & Chem 7: 03/30/18 16:28 12/28/17 16:28 Labs: Abnormal Lab Results - Last 24 Hours (Table) 12/28/17 12/28/17 12/28/17 Range/Units 16:28 16:28 16:28 RBC 4.13 L (4.30-5.90) m/uL Hgb 11.3 L (13.0-17.5) gm/dL Hct 35.6 L (39.0-53.0) % RDW 15.9 H (11.5-15.5) % Lymphocytes # 0.8 L (1.0-4.8) k/uL BUN 21 H (9-20) mg/dL Albumin 3.2 L (3.5-5.0) g/dL Urine Protein 1+ H (Negative) Urine Blood Small H (Negative) Ur Leukocyte Esterase Moderate H (Negative) Urine RBC 7 H (0-5) /hpf Urine WBC 16 H (0-5) /hpf Urine Bacteria Few H (None) /hpf Assessment and Plan Plan: #1 Acute infectious/metabolic encephalopathy: Likely secondary to urinary tract infection Urine culture was sent WILL with IV antibiotics as below #2 Acute recurrent urinary tract infection Communicated with RN the need to change the Stein catheter Start cefepime and vancomycin Follow-up urine culture ID consult #3 History of deep Vein Thrombosis (DVT), MS with complicated cognitive impariment Stable Resume medications Check PT, PTT and INR in a.m. #4 HX of STAGE IV SACRAL DECUBITUS ULCER: Examined, no signs of infection #5 DVT prophylaxis On Coumadin
[2017-12-28] MEDS ORDERED: MEROPENEM 1 GM in SODIUM CHLORIDE 0.9% 100 ML IVPB SCH (21:00)
[2017-12-28 21:12] LABS: INR 1.4 (<1.2); Partial Thromboplastin Time 32.3 sec (22.0-30.0); Prothrombin Time 13.2 sec (9.0-12.0)
[2017-12-28] MEDS: SCOPOLAMINE 1.5MG/72HR PATCH TRANSDERM SCH (22:05)
[2017-12-28] MEDS: METOPROLOL TARTRATE 25 MG TAB PEG/G-TUBE SCH (22:05)
[2017-12-28] MEDS: CEFEPIME 1 GM in SODIUM CHLORIDE 0.9% 50 ML IVPB SCH (22:05)
[2017-12-28] MEDS: OXcarbazepine 300 MG TAB PEG/G-TUBE SCH (22:06)
[2017-12-28] MEDS: AMANTADINE HCL PEG/G-TUBE SCH (22:06)
[2017-12-28] MEDS: DOCUSATE ORAL SOLN 100 MG/10 ML CUP PO SCH (22:06)
[2017-12-29] MEDS: GABAPENTIN 100 MG CAP PEG/G-TUBE SCH ×5 (02:12→23:44)
[2017-12-29] MEDS: BACLOFEN 10 MG TAB PEG/G-TUBE SCH ×4 (02:12→23:44)
[2017-12-29] MEDS: SODIUM CHLORIDE 0.9% 1,000 ML IV SCH ×3 (05:55→16:05)
[2017-12-29] MEDS: VANCOMYCIN 1,000 MG in SODIUM CHLORIDE 0.9% 250 ML IVPB SCH ×2 (05:55→17:50)
[2017-12-29 07:30] LABS: Basophils % (A) 0 %; Eosinophils # (A) 0.4 k/uL (0-0.7); Eosinophils % (A) 4 %; HCT 34.2 % (39.0-53.0); HGB 11.1 gm/dL (13.0-17.5); Lymphocytes % (A) 13 %; MCH 27.9 pg (25.0-35.0); MCHC 32.4 g/dL (31.0-37.0); MCV 86.1 fL (80.0-100.0); Mean Platelet Volume 9.1; Monocytes # (A) 0.8 k/uL (0-1.0); Monocytes % (A) 10 %; Neutrophils # (A) 5.7 k/uL (1.3-7.7); Neutrophils % (A) 70 %; Platelet Count 245 k/uL (150-450); RBC 3.97 m/uL (4.30-5.90); RDW 15.7 % (11.5-15.5); WBC 8.2 k/uL (3.8-10.6)
[2017-12-29 07:42] LABS: Anion Gap 14 mmol/L; Calcium 9.1 mg/dL (8.4-10.2); Carbon Dioxide 20 mmol/L (22-30); Chloride 108 mmol/L (98-107); Glucose 88 mg/dL (74-99); Sodium 142 mmol/L (137-145); Total Bilirubin 0.4 mg/dL (0.2-1.3); Total Protein 6.3 g/dL (6.3-8.2)
[2017-12-29 07:47] LABS: ALT 27 U/L (21-72); AST 29 U/L (17-59); Alkaline Phosphatase 82 U/L (38-126); Blood Urea Nitrogen 18 mg/dL (9-20); Magnesium 1.8 mg/dL (1.6-2.3); Potassium 4.6 mmol/L (3.5-5.1)
[2017-12-29 07:49] LABS: INR 1.4 (<1.2); Prothrombin Time 12.7 sec (9.0-12.0)
[2017-12-29 07:55] LABS: Partial Thromboplastin Time 21.3 sec (22.0-30.0)
[2017-12-29] MEDS: CEFEPIME 1 GM in SODIUM CHLORIDE 0.9% 50 ML IVPB SCH ×2 (08:55→20:17)
[2017-12-29] MEDS: AMANTADINE HCL PEG/G-TUBE SCH ×2 (08:56→20:17)
[2017-12-29] MEDS: DOCUSATE ORAL SOLN 100 MG/10 ML CUP PO SCH ×2 (08:57→20:17)
[2017-12-29] MEDS: METOPROLOL TARTRATE 25 MG TAB PEG/G-TUBE SCH ×2 (08:57→20:17)
[2017-12-29] MEDS: PANTOPRAZOLE SODIUM 40 MG GRANULE PKT PEG/G-TUBE SCH (08:57)
[2017-12-29] MEDS: FERROUS SULFATE ORAL ELIXIR 300 MG/5 ML CUP PEG/G-TUBE SCH (08:58)
[2017-12-29] MEDS: OXcarbazepine 300 MG TAB PEG/G-TUBE SCH (08:58)
[2017-12-29 09:39] VITALS: BMI 24.3
--- NOTE | 2017-12-29 10:58 | P.PN ---
Subjective Progress Note Date: 12/29/17 Principal diagnosis: confusion Patient is a 49-year-old male with a past medical history of MS with bedbound status, headache 2, and indwelling Aggarwal catheter who presented to the hospital from his [facility] secondary to altered mentation. At the correction he was noted to have fevers and a urinary tract infection. He had a PICC line placed and was started on IV cefepime. When his confusion worsened they sent him to the hospital. On arrival to the ER he was found to have a fever of 101.7. Laboratory analysis is essentially unremarkable. Influenza was negative. Urinalysis showed possible urinary tract infection. He was given a dose of vancomycin and Rocephin in the ER. He was admitted to the general medical floor for further monitoring and care. His Rocephin was transitioned to cefepime. Infectious disease was consulted. He is also noted to have a healing stage IV sacral pressure ulcer. He had significant altered mentation was not able to participate in conversation. By the morning after admission his mentation had improved and was able to answer questions by head nodding yes or no appropriately. Patient seen and examined at bedside. He complains of pain in his bottom. He denies any nausea, vomiting, or diarrhea. Objective - Vital Signs Vital signs: Vital Signs Temp 99.1 F 12/29/17 07:00 Pulse 86 12/29/17 07:00 Resp 20 12/29/17 07:00 BP 125/74 12/29/17 07:00 Pulse Ox 99 12/29/17 07:00 Intake & Output 12/28/17 12/29/17 12/29/17 18:59 06:59 18:59 Intake Total 1250 Output Total 2000 Balance -750 Weight 62.324 kg 62.324 kg Intake: Intake, IV Titration 850 Amount Cefepime 1 gm In Sodium 50 Chloride 0.9% 50 ml @ 100 mls/hr IVPB Q12HR [facility] Rx #:[id number] Sodium Chloride 0.9% 1, 800 000 ml @ 100 mls/hr IV . Q10H [facility] Rx#:[id number] Oral 400 Output: Urine 1999 Uretheral (Aggarwal) 1999 Other: Voiding Method Indwelling Catheter - Exam General: ill appearing, no distress, appears older than stated age. temporal wasting Derm: warm, dry, sacral ulcer with good granulation tissue down to muscle no drainage or odor. Head: atraumatic, normocephalic, symmetric Eyes: EOMI, no lid lag, anicteric sclera Mouth: no lip lesion, mucus membranes moist Cardiovascular: S1S2 reg, no murmur, positive posterior tibial pulse bilateral, Lungs: decreases bs b/l, no rhonchi, no rales , no accessory muscle use Abdominal: soft, nontender to palpation, no guarding, no appreciable organomegaly Ext: + gross muscle atrophy, no edema, flexion contracture of b/l arms and legs Neuro: EOMI, unable to phonate, musle stregth 3/5 in b/l arms, light touch intact all 4 extremities Psych: Alert, oriented, appropriate affect - Labs CBC & Chem 7: 12/29/17 06:59 12/29/17 06:59 Labs: Abnormal Lab Results - Last 24 Hours (Table) 12/28/17 12/28/17 12/28/17 Range/Units 16:28 16:28 16:28 RBC 4.13 L (4.30-5.90) m/uL Hgb 11.3 L (13.0-17.5) gm/dL Hct 35.6 L (39.0-53.0) % RDW 15.9 H (11.5-15.5) % Lymphocytes # 0.8 L (1.0-4.8) k/uL PT (9.0-12.0) sec INR (<1.2) APTT (22.0-30.0) sec Chloride (98-107) mmol/L Carbon Dioxide (22-30) mmol/L BUN 21 H (9-20) mg/dL Albumin 3.2 L (3.5-5.0) g/dL Urine Protein 1+ H (Negative) Urine Blood Small H (Negative) Ur Leukocyte Esterase Moderate H (Negative) Urine RBC 7 H (0-5) /hpf Urine WBC 16 H (0-5) /hpf Urine Bacteria Few H (None) /hpf 12/28/17 12/29/17 12/29/17 Range/Units 20:50 06:59 06:59 RBC 3.97 L (4.30-5.90) m/uL Hgb 11.1 L (13.0-17.5) gm/dL Hct 34.2 L (39.0-53.0) % RDW 15.7 H (11.5-15.5) % Lymphocytes # (1.0-4.8) k/uL PT 13.2 H (9.0-12.0) sec INR 1.4 H (<1.2) APTT 32.3 H (22.0-30.0) sec Chloride 108 H (98-107) mmol/L Carbon Dioxide 20 L (22-30) mmol/L BUN (9-20) mg/dL Albumin 3.0 L (3.5-5.0) g/dL Urine Protein (Negative) Urine Blood (Negative) Ur Leukocyte Esterase (Negative) Urine RBC (0-5) /hpf Urine WBC (0-5) /hpf Urine Bacteria (None) /hpf 12/29/17 Range/Units 06:59 RBC (4.30-5.90) m/uL Hgb (13.0-17.5) gm/dL Hct (39.0-53.0) % RDW (11.5-15.5) % Lymphocytes # (1.0-4.8) k/uL PT 12.7 H (9.0-12.0) sec INR 1.4 H (<1.2) APTT 21.3 L (22.0-30.0) sec Chloride (98-107) mmol/L Carbon Dioxide (22-30) mmol/L BUN (9-20) mg/dL Albumin (3.5-5.0) g/dL Urine Protein (Negative) Urine Blood (Negative) Ur Leukocyte Esterase (Negative) Urine RBC (0-5) /hpf Urine WBC (0-5) /hpf Urine Bacteria (None) /hpf Microbiology - Last 24 Hours (Table) 12/28/17 16:28 Urine Culture - Preliminary Urine,Voided Assessment and Plan Assessment: UTI, related to chronic indwelling aggarwal, POA - Vanco and cefepime - aggarwal changed last night - ID consult - await urine culure MS with functional debility and bed bound status - turn q2 hours - supportive care Moderate protein calorie malnutrition - continue tube feeds - dietary recs Thompson IV sacral decub, healing, POA - ID recs - turn q 2 hours Hx of DVT with subtherapeutic coumadin coagulopathy - coumadin - follow PT/INR - pharmacy to dose - lovenox until therapeutic NC anemia - appears chronic - HgB stable since - continue Fe supplementation DVT prophylaxis: Lovenox Discussed with: Patient, nursing Anticipated discharge: [address]: return to correction A total of 35 minutes was spent on the care of this complex patient more than 50 % of the time was spent in counseling and care coordination.
--- NOTE | 2017-12-29 15:41 | CONS ---
CONSULTATION DATE OF CONSULTATION: 12/29/2017. REASON FOR CONSULTATION: 1. Sepsis. 2. Sacral wound. HISTORY OF PRESENT ILLNESS: The patient is a 57-year-old male with past medical history significant for MS, the patient who is bedbound, did have a chronic indwelling Stein catheter because of urinary retention. The [facility] who [facility] a [facility] was sent to the ER at [facility] on 12/28/2017 for evaluation of fever that started about a day or two prior to presentation to hospital. Apparently the patient started on some antibiotic, not very clear what antibiotic he was given but he failed to improve with persistent fever and weakness, lethargic and mental status changes and the patient was sent to the hospital for further evaluation. Patient was evaluated by the ER physician last night. Patient did have a chest x-ray which was negative for any acute cardiopulmonary disease. The patient on arrival to the ER did have fever of 101.7 degrees Fahrenheit. The patient white count was 9.8. His urine was significantly positive with moderate leukocyte esterases and 15 WBC. Influenza serology was negative. He was started on cefepime. Vancomycin was added this morning. The patient was consulted for further recommendations regarding antibiotic therapy. Most of the information has been obtained from review of the chart, talking to nursing staff and the patient himself is awake, but not good historian when asked some of the questions. None were answered. Patient last admission to this facility was back in October of 2017. At that time, his initial urine culture did show multiple pathogen including Pseudomonas aeruginosa, Enterococcus faecalis and MRSA. However, repeat urine culture showed E coli Pseudomonas aeruginosa and it was decided that was treated with IV antibiotic for 5 days with a peripheral IV. The patient did get a PICC line. This admission though blood culture obtained currently pending. REVIEW OF SYSTEMS: Could not be reliably obtained though the positive points have been mentioned in HPI. PAST MEDICAL HISTORY: Significant for MS, chronic bed-bound state. The patient did have a history of recurrent urinary tract infection, catheter associated. He did have a stage III sacral pressure ulcer, cognitive impairment and DVT. PAST SURGICAL HISTORY: PEG tube placement, subsequent line removal. SOCIAL HISTORY: The patient is currently a resident of [facility]. No history of smoking, drinking or drug use. FAMILY HISTORY: No pertinent findings noticed on the chart. ALLERGIES: TO MEROPENEM WITH RASH. MEDICATIONS: The patient is currently on Tylenol, DuoNeb, baclofen, cefepime 1 g q.12h. He is on Lovenox, iron sulfate, Neurontin, Robitussin, Lopressor, vancomycin, pharmacy to dose, Narcan, Zofran, Trileptal, Protonix, vancomycin, Coumadin. EXAMINATION: Blood pressure is 125/74 with a pulse of 83, temperature 99.1, T-max is 101.7. He is 99% on 2 L nasal cannula. General description is a middle-aged male lying in bed in no distress. No tachypnea or accessory muscles of respiration use. HEENT: Shows slight pallor. No scleral icterus. Oral mucous membranes dry. No erythema or thrush. Neck trachea central. No thyromegaly. Lungs unlabored breathing. Clear to auscultation with no wheeze or crackles. Heart S1, S2 regular rate and rhythm. Abdomen soft, no tenderness. No guarding or rigidity. PEG tube site soft, does not have any erythema or drainage. The tube itself looks pretty significantly distorted, discolored. EXTREMITIES: No edema of the feet. Skin examination no rash or mass palpable. Examination of sacral area shows a stage III pressure ulcer with no slough tissue. No surrounding erythema or any foul-smelling drainage. Neurological: Patient awake, however orientation could be determined. The patient is nonverbal. LABS: Hemoglobin 11.1, white count 8.2 with a BUN of 18, creatinine 0.80. Electrolytes have been normal. Liver enzymes are normal. Urine has been positive. DIAGNOSTIC IMPRESSION AND PLAN: 1. Patient admitted to the hospital with sepsis in a patient who does have a fever of 101.7 degrees Fahrenheit. The patient was tachycardic. Blood pressure was stable though and white count normal. Source is likely catheter associated urinary tract infection. The patient has grown previously multidrug resistant pathogen including Enterococcus faecalis and Methicillin-resistant Staphylococcus aureus could have been either of these pathogens with current related to his risk factor of a catheter. 2. Patient who does have a stage III sacral pressure ulcer with no evidence of any cellulitis. PLAN: 1. Cefepime 1 g q.12h should cover for the Pseudomonas and vancomycin pharmacy to dose, target of 15. 2. We will need to monitor his kidney function closely while the patient is on vancomycin. 3. Aquacel silver packing of the sacral wound to keep the area off pressure. 4. We will follow up on his clinical condition as well as cultures to further adjust medication if needed. Thank you for this consultation. We will follow the patient along with you. CHARLOTTE / LARRY: [id number] / MTDD
[2017-12-29] MEDS ORDERED: WARFARIN 2.5 MG TAB PEG/G-TUBE SCH (18:00)
[2017-12-29] MEDS ORDERED: WARFARIN 5 MG TAB PO ONE (18:00)
[2017-12-29] MEDS: ENOXAPARIN 60 MG/0.6 ML SYRINGE SQ SCH (20:17)
[2017-12-29] MEDS: OXcarbazepine 150 MG TAB PEG/G-TUBE SCH (20:17)
[2017-12-30] MEDS ORDERED: VANCOMYCIN TROUGH DUE 1 EACH MISC MISCELLANE ONE (05:00)
[2017-12-30] MEDS: VANCOMYCIN 1,000 MG in SODIUM CHLORIDE 0.9% 250 ML IVPB SCH ×2 (06:24→17:10)
[2017-12-30 06:25] LABS: Anion Gap 13 mmol/L; Blood Urea Nitrogen 17 mg/dL (9-20); Calcium 8.6 mg/dL (8.4-10.2); Carbon Dioxide 22 mmol/L (22-30); Chloride 110 mmol/L (98-107); Glucose 114 mg/dL (74-99); Potassium 4.2 mmol/L (3.5-5.1); Sodium 145 mmol/L (137-145)
[2017-12-30] MEDS: GABAPENTIN 100 MG CAP PEG/G-TUBE SCH ×5 (06:25→23:33)
[2017-12-30] MEDS: SODIUM CHLORIDE 0.9% 1,000 ML IV SCH ×3 (06:25→17:06)
[2017-12-30] MEDS: BACLOFEN 10 MG TAB PEG/G-TUBE SCH ×4 (09:00→20:28)
[2017-12-30] MEDS: METOPROLOL TARTRATE 25 MG TAB PEG/G-TUBE SCH ×3 (09:00→20:28)
[2017-12-30] MEDS: DOCUSATE ORAL SOLN 100 MG/10 ML CUP PO SCH ×3 (09:00→20:28)
[2017-12-30] MEDS: CEFEPIME 1 GM in SODIUM CHLORIDE 0.9% 50 ML IVPB SCH ×3 (09:00→20:27)
[2017-12-30] MEDS: AMANTADINE HCL PEG/G-TUBE SCH ×3 (09:00→20:28)
[2017-12-30] MEDS: OXcarbazepine 150 MG TAB PEG/G-TUBE SCH ×3 (09:00→20:28)
[2017-12-30] MEDS: FERROUS SULFATE ORAL ELIXIR 300 MG/5 ML CUP PEG/G-TUBE SCH ×2 (09:00→15:57)
[2017-12-30] MEDS: ENOXAPARIN 60 MG/0.6 ML SYRINGE SQ SCH ×3 (09:00→20:27)
[2017-12-30] MEDS: PANTOPRAZOLE SODIUM 40 MG GRANULE PKT PEG/G-TUBE SCH ×2 (09:08→15:56)
--- NOTE | 2017-12-30 10:04 | P.PN ---
Subjective Progress Note Date: 12/30/17 Principal diagnosis: confusion Patient is a 57-year-old male with a past medical history of MS with bedbound status, headache 2, and indwelling Aggarwal catheter who presented to the hospital from his [place] [facility] secondary to altered mentation. At the [place] [facility] he was noted to have fevers and a urinary tract infection. He had a PICC line placed and was started on IV cefepime. When his confusion worsened they sent him to the hospital. On arrival to the ER he was found to have a fever of 101.7. Laboratory analysis is essentially unremarkable. Influenza was negative. Urinalysis showed possible urinary tract infection. He was given a dose of vancomycin and Rocephin in the ER. He was admitted to the general medical floor for further monitoring and care. His Rocephin was transitioned to cefepime. Infectious disease was consulted. He is also noted to have a healing stage IV sacral pressure ulcer. He had significant altered mentation was not able to participate in conversation. By the morning after admission his mentation had improved and was able to answer questions by head nodding yes or no appropriately. His urine culture has demonstrated Group D enterococcus. He has continued to make improvements daily. He was noted to have a healing stage IV pressure ulcer on his coccyx on admssion. Patient seen and examined at bedside. He shakes head yeas and no appropriately. He c/o being uncomfortable and wanting to be turned. He has a new cough. No chest pain, nausea, diarrhea. Case d/w nursing. Objective - Vital Signs Vital signs: Vital Signs Temp 97.3 F L 12/30/17 07:00 Pulse 103 H 12/30/17 07:00 Resp 20 12/30/17 07:00 BP 116/77 12/30/17 07:00 Pulse Ox 100 12/30/17 07:39 Intake & Output 12/29/17 12/30/17 12/30/17 18:59 06:59 18:59 Intake Total 800 Output Total 1200 Balance -1200 800 Weight 62.324 kg 62.324 kg Intake: Intake, IV Titration 800 Amount Sodium Chloride 0.9% 1, 800 000 ml @ 100 mls/hr IV . Q10H [facility] Rx#:[id number] Output: Urine 1200 Other: Voiding Method Indwelling Catheter Indwelling Catheter - Exam General: ill appearing, no distress, appears older than stated age. temporal wasting Derm: warm, dry, cap refill <2 seconds Head: atraumatic, normocephalic, symmetric Eyes: EOMI, no lid lag, anicteric sclera Mouth: no lip lesion, mucus membranes moist Cardiovascular: S1S2 reg, no murmur, positive posterior tibial pulse bilateral, Lungs: course bs on the left, no rhonchi, no rales , no accessory muscle use Abdominal: soft, nontender to palpation, no guarding, no appreciable organomegaly Ext: + gross muscle atrophy, no edema, flexion contracture of b/l arms and legs Neuro: EOMI, unable to phonate, musle stregth 3/5 in b/l arms, light touch intact all 4 extremities Psych: Alert, oriented, appropriate affect - Labs CBC & Chem 7: 12/29/17 06:59 12/30/17 05:18 Labs: Abnormal Lab Results - Last 24 Hours (Table) 12/30/17 Range/Units 05:18 Chloride 110 H (98-107) mmol/L Glucose 114 H (74-99) mg/dL Microbiology - Last 24 Hours (Table) 12/28/17 16:28 Urine Culture - Preliminary Urine,Voided Group D Enterococcus 12/28/17 16:28 Blood Culture - Preliminary Blood No Growth after 24 hours Assessment and Plan Assessment: Group D entercoccus UTI, related to chronic indwelling aggarwal, POA - Vanco and cefepime - aggarwal changed last night - ID recs appreciated - await sensitivities - blood culture negative for 24 hours Cough - suction to bedside - check CXR MS with functional debility and bed bound status - turn q2 hours - supportive care Moderate protein calorie malnutrition - continue tube feeds - dietary recs Thompson III sacral decub, healing, POA - ID recs - turn q 2 hours Hx of DVT with subtherapeutic coumadin coagulopathy - coumadin - follow PT/INR - pharmacy to dose - lovenox until therapeutic NC anemia - appears chronic - HgB stable since Janurary - continue Fe supplementation back to [place] [facility] once [facility] available. DVT prophylaxis: Lovenox Discussed with: Patient, nursing Anticipated discharge: [address]: return to [place] [facility] A total of 35 minutes was spent on the care of this complex patient more than 50 % of the time was spent in counseling and care coordination.
--- NOTE | 2017-12-30 10:20 | XR ---
EXAMINATION TYPE: XR chest 1V portable DATE OF EXAM: 12/30/2017 HISTORY: cough, pneumonia. REFERENCE: Previous study dated 10/21/2017. FINDINGS: The heart is upper limits of normal in size. There is consolidation at the right lung base. Lungs otherwise clear. Pleural spaces are clear. The heart is minimally enlarged.. IMPRESSION: RIGHT LOWER LUNG INFILTRATE LIKELY REPRESENTING PNEUMONIA.
[2017-12-30 11:20] LABS: INR 1.6 (<1.2); Prothrombin Time 14.5 sec (9.0-12.0)
[2017-12-30] MEDS: HYDROcodone/APAP 7.5-325MG 1 EACH TAB PEG/G-TUBE PRN ×2 (15:43→23:32)
[2017-12-30] MEDS ORDERED: WARFARIN 2.5 MG TAB PEG/G-TUBE SCH (18:00)
--- NOTE | 2017-12-30 22:03 | PN ---
PROGRESS NOTE DATE OF SERVICE: 12/30/2017. REASON FOR FOLLOW UP: 1. A catheter associated urinary tract infection. 2. Possible pneumonia. 3. Stage III sacral wound. INTERVAL HISTORY: The patient overall fever pattern has improved. He seemed to be breathing comfortably. He is more awake, alert, and did answer some simple question per the RN. The patient is more congested. He seemed to be in a propped up position and has been tolerating his tube feeds with no high residuals and no diarrhea. EXAMINATION: Blood pressure 152/82 with a pulse of 90. Temperature is 97. He is 97% on 2 L nasal cannula. General description is a middle-aged male lying in bed in no distress. Respiratory system: Unlabored breathing. Clear to auscultation anteriorly. No wheeze or crackles. Heart S1, S2. Regular rate and rhythm. Abdomen soft. No tenderness. LABS: Hemoglobin 11.1, hematocrit 28.2 with a BUN of 17, creatinine 0.76. was 14.6. DIAGNOSTIC IMPRESSION/PLAN: 1. Patient admitted to the hospital with sepsis. Source is a catheter associated urinary tract infection. Stein has been changed. Culture now showing Enterococcus. Blood culture has been negative. He will be kept on cefepime and the vanco while waiting for the final ID of this pathogen. 2. Patient did have a right lower lobe infiltrate with question of possible pneumonia clinically not behaving as such that should be covered with cefepime and vancomycin. The patient already on. 3. Patient with sacral wound with no evidence of any cellulitis. Local wound care with Aquacel Silver packing. Sister was present at bedside. Her questions were answered. MMODL / IJN: [id number] /
[2017-12-31] MEDS: VANCOMYCIN 1,000 MG in SODIUM CHLORIDE 0.9% 250 ML IVPB SCH (05:18)
[2017-12-31] MEDS: GABAPENTIN 100 MG CAP PEG/G-TUBE SCH ×4 (06:16→23:36)
[2017-12-31 07:52] LABS: HCT 35.1 % (39.0-53.0); HGB 11.2 gm/dL (13.0-17.5); Hypochromasia Slight; MCHC 31.9 g/dL (31.0-37.0); MCV 87.6 fL (80.0-100.0); Mean Platelet Volume 7.7; Platelet Count 286 k/uL (150-450); RBC 4.01 m/uL (4.30-5.90); RDW 15.1 % (11.5-15.5); WBC 5.9 k/uL (3.8-10.6)
[2017-12-31 07:57] LABS: INR 1.3 (<1.2); Prothrombin Time 12.7 sec (9.0-12.0)
[2017-12-31 08:11] LABS: Anion Gap 12 mmol/L; Blood Urea Nitrogen 13 mg/dL (9-20); Calcium 8.9 mg/dL (8.4-10.2); Carbon Dioxide 23 mmol/L (22-30); Chloride 110 mmol/L (98-107); Glucose 135 mg/dL (74-99); Magnesium 1.7 mg/dL (1.6-2.3); Potassium 4.1 mmol/L (3.5-5.1); Sodium 145 mmol/L (137-145)
[2017-12-31] MEDS: DOCUSATE ORAL SOLN 100 MG/10 ML CUP PO SCH ×2 (09:25→20:30)
[2017-12-31] MEDS: CEFEPIME 1 GM in SODIUM CHLORIDE 0.9% 50 ML IVPB SCH (09:25)
[2017-12-31] MEDS: AMANTADINE HCL PEG/G-TUBE SCH ×2 (09:25→20:30)
[2017-12-31] MEDS: ENOXAPARIN 60 MG/0.6 ML SYRINGE SQ SCH ×2 (09:25→20:31)
[2017-12-31] MEDS: SODIUM CHLORIDE 0.9% 1,000 ML IV SCH ×2 (09:26→17:33)
[2017-12-31] MEDS: OXcarbazepine 150 MG TAB PEG/G-TUBE SCH (09:27)
[2017-12-31] MEDS: BACLOFEN 10 MG TAB PEG/G-TUBE SCH ×3 (09:27→20:31)
[2017-12-31] MEDS: PANTOPRAZOLE SODIUM 40 MG GRANULE PKT PEG/G-TUBE SCH (09:28)
[2017-12-31] MEDS: METOPROLOL TARTRATE 25 MG TAB PEG/G-TUBE SCH ×2 (09:28→20:31)
[2017-12-31] MEDS: FERROUS SULFATE ORAL ELIXIR 300 MG/5 ML CUP PEG/G-TUBE SCH (09:28)
[2017-12-31] MEDS: HYDROcodone/APAP 7.5-325MG 1 EACH TAB PEG/G-TUBE PRN ×2 (10:00→17:43)
[2017-12-31] MEDS: AMPICILLIN-SULBACTAM 1.5 GM in SODIUM CHLORIDE 0.9% 50 ML IVPB SCH ×3 (12:47→23:35)
[2017-12-31] MEDS ORDERED: WARFARIN 5 MG TAB PEG/G-TUBE SCH (18:00)
--- NOTE | 2017-12-31 18:23 | P.PN ---
Subjective Progress Note Date: 12/31/17 Principal diagnosis: Weakness and lethargy Better Objective - Vital Signs Vital signs: Vital Signs Temp 97.6 F 12/31/17 15:00 Pulse 88 12/31/17 15:00 Resp 18 12/31/17 15:00 BP 155/96 12/31/17 15:00 Pulse Ox 100 12/31/17 15:00 Intake & Output 12/30/17 12/31/17 12/31/17 18:59 06:59 18:59 Intake Total 480 0 20 Output Total 2250 650 700 Balance -1770 -650 -680 Weight 62.324 kg Intake: Tube Feeding 480 0 20 Output: Urine 2250 650 700 Uretheral (Stein) 650 700 Other: Voiding Method Indwelling Catheter Indwelling Catheter Indwelling Catheter # Voids 0 0 - Exam Patient is lying in the bed comfortably, no acute distress, awake alert but cannot communicate HEENT: Normocephalic. Neck is supple. Pupils reactive. Nostrils clear. Oral cavity is moist. Ears reveal no drainage. Neck reveals no JVD, carotid bruits, or thyromegaly. CHEST: Trachea is central. Symmetrical expansion. Lung prater clear to auscultation and percussion. CARDIAC: Normal S1, S2 with no gallops. No murmurs , no pedal edema ABDOMEN: Soft. Bowel sounds normal. No organomegaly. No abdominal bruits. Extremities: reveal no edema. No clubbing or cyanosis Neurologically awake, alert. Patient does have bilateral lower activity contractures Skin: No rash or skin lesions. Psychiatric: Could not be assessed Musculoskeletal: Multiple joint deformities. Lower extremity contractures - Labs CBC & Chem 7: 12/31/17 07:19 12/31/17 07:19 Labs: Abnormal Lab Results - Last 24 Hours (Table) 12/31/17 12/31/17 12/31/17 Range/Units 07:19 07:19 07:19 RBC 4.01 L (4.30-5.90) m/uL Hgb 11.2 L (13.0-17.5) gm/dL Hct 35.1 L (39.0-53.0) % PT 12.7 H (9.0-12.0) sec INR 1.3 H (<1.2) Chloride 110 H (98-107) mmol/L Glucose 135 H (74-99) mg/dL Microbiology - Last 24 Hours (Table) 12/28/17 16:28 Urine Culture - Final Urine,Voided Enterococcus faecalis 12/28/17 16:28 Blood Culture - Preliminary Blood No Growth after 48 hours Assessment and Plan Plan: #1 Acute infectious/metabolic encephalopathy: Likely secondary to urinary tract infection Urine culture grew enterococcus Continue IV antibiotics as below #2 Acute recurrent urinary tract infection Switched from cefepime and vancomycin to Unasyn as enterococcus is sensitive to it ID following #3 History of deep Vein Thrombosis (DVT), MS with complicated cognitive impariment Stable Resume medications #4 HX of STAGE IV SACRAL DECUBITUS ULCER: Examined, no signs of infection #5 DVT prophylaxis On Coumadin
[2017-12-31] MEDS: OXcarbazepine 300 MG TAB PO SCH (20:31)
[2017-12-31] MEDS: SCOPOLAMINE 1.5MG/72HR PATCH TRANSDERM SCH (20:31)
--- NOTE | 2017-12-31 20:55 | PN ---
PROGRESS NOTE DATE OF SERVICE: 12/31/2017 REASON FOR FOLLOWUP: 1. Enterococcus catheter-associated urinary tract infection. 2. Possible right lower lobe pneumonia with a question of aspiration etiology. 3. Sacral pressure ulcer. INTERVAL HISTORY: The patient is afebrile; has been breathing comfortably. Hemodynamically stable. No nausea or vomiting has been noted no diarrhea. PHYSICAL EXAMINATION: Blood pressure is 165/96, pulse of 88, temperature of 97.6. He is 100% on 2 L nasal cannula. General description is a middle-aged male lying in bed in no distress. RESPIRATORY SYSTEM: Unlabored breathing with decreased breath sounds in the bases. HEART: S1, S2. Regular rate and rhythm. ABDOMEN: Soft. No tenderness. EXTREMITIES: No edema of the feet. LABS: Hemoglobin 11.2, white count 5.9, BUN of 13, creatinine 0.67. DIAGNOSTIC IMPRESSION AND PLAN: 1. Patient with Enterococcus faecalis catheter-associated urinary tract infection. The Stein has been discontinued. Also a question of possible right lower lobe pneumonia, question of aspiration etiology. Patient with questionable allergy to meropenem tolerated cefepime without any problem. Antibiotic will be adjusted to Unasyn 1.5 q.6. If the patient can tolerate it, he can be transitioned to oral Augmentin to finish his course of therapy. 2. Patient with sacral pressure ulcer, stage III. Local wound care with Aquacel Silver packing. Keep the area off the pressure. MMODL / IJN: [id number] /
[2018-01-01] MEDS: GABAPENTIN 100 MG CAP PEG/G-TUBE SCH (04:59)
[2018-01-01] MEDS: AMPICILLIN-SULBACTAM 1.5 GM in SODIUM CHLORIDE 0.9% 50 ML IVPB SCH (04:59)
[2018-01-01] MEDS: HYDROcodone/APAP 7.5-325MG 1 EACH TAB PEG/G-TUBE PRN (04:59)
[2018-01-01] MEDS: SODIUM CHLORIDE 0.9% 1,000 ML IV SCH ×2 (05:47→08:33)
[2018-01-01 07:56] LABS: INR 1.8 (<1.2); Prothrombin Time 16.1 sec (9.0-12.0)
[2018-01-01 08:00] VITALS: RESP 20; TEMP 97
[2018-01-01 08:04] LABS: Anion Gap 10 mmol/L; Blood Urea Nitrogen 13 mg/dL (9-20); Calcium 8.5 mg/dL (8.4-10.2); Carbon Dioxide 24 mmol/L (22-30); Chloride 109 mmol/L (98-107); Glucose 122 mg/dL (74-99); Potassium 4.1 mmol/L (3.5-5.1); Sodium 143 mmol/L (137-145)
[2018-01-01] MEDS: METOPROLOL TARTRATE 25 MG TAB PEG/G-TUBE SCH (08:08)
[2018-01-01] MEDS: ENOXAPARIN 60 MG/0.6 ML SYRINGE SQ SCH (08:08)
[2018-01-01] MEDS: FERROUS SULFATE ORAL ELIXIR 300 MG/5 ML CUP PEG/G-TUBE SCH (08:08)
[2018-01-01] MEDS: DOCUSATE ORAL SOLN 100 MG/10 ML CUP PO SCH (08:08)
[2018-01-01] MEDS: PANTOPRAZOLE SODIUM 40 MG GRANULE PKT PEG/G-TUBE SCH (08:09)
[2018-01-01] MEDS: OXcarbazepine 300 MG TAB PO SCH (08:09)
[2018-01-01] MEDS: BACLOFEN 10 MG TAB PEG/G-TUBE SCH (08:09)
[2018-01-01] MEDS: AMANTADINE HCL PEG/G-TUBE SCH (08:10)
--- NOTE | 2018-01-01 08:35 | P.DS ---
Providers Date of admission: 12/28/17 18:26 Attending physician: Jairon Wilde MD Consults: 12/28/17 20:27 Consult Physician Routine Consulting Provider: Ousmane Floyd Reason/Comments: uti Do you want consulting provider notified?: Yes, Notify in am Primary care physician: [facility] Course: 57-year-old male presented to the emergency department because of for evaluation of fever and lethargy. Patient is bedbound because of history of MS. He resides at the half-way and he was noted to have a temperature of 100.3. Patient is nonverbal and all of the history was taken from his sister over the phone. He was given IV cefepime at the half-way. He also had a right-sided PICC line placed at the half-way before presentation. However despite therapy, symptoms have failed to improve and because of that he was taken to the emergency department. According to his sister who is also his advocate, at baseline he is normally more responsive, able to answer questions with few words or nods, he does watch television and is somewhat engaged, however his level of alertness has declined and he seemed more lethargic. Last month patient was admitted to the hospital because of urinary tract infection and weakness. He was treated with about 2 weeks of IV antibiotics after discharge. He grew Pseudomonas, enterococcus and MRSA in the urine. According to the sister is not clear when this Stein catheter was changed. Sister denied any history of vomiting, chest or abdominal pain or diarrhea. Upon evaluation in the emergency department patient was febrile with temperature 101.7, he was lethargic but able to, was not answering questions when he first presented. Laboratory findings revealed a significant urinary tract infection, urine cultures were sent. He did not have any leukocytosis and all of his electrolytes were within normal limits. He was started on broad- spectrum antibiotics for the urinary tract infection with cefepime and vancomycin. His Stein catheter was changed when he first came in. Urine cultures came back positive for enterococcus that was sensitive to ampicillin. ID was consulted and his antibiotic coverage was changed to Unasyn. His fever broke and he became more alert and communicative with the treatment. Throughout the hospitalization his mental status gradually improved and currently is back at its baseline. Patient has a chronic sacral ulcer, that was examined and it didn't look like that the ulcer was infected. It did not need any surgical drainage. Today patient will be sent back to the half-way with 12 day course of augmentin through the PEG to treat the complicated urinary tract infection. On the day of discharge discussed the case was sister who stated that the patient is having worsening jaw pain which he chronically has, the neurologist was suggested increasing the dose of that Trileptal in order to treat that. Upon discharge I suggested doubling the Trileptal dose until he sees the neurologist in the office. Discharge diagnoses Acute metabolic/infectious encephalopathy, resolved Acute urinary tract infection, improving History of deep Vein Thrombosis (DVT) on Coumadin, MS with complicated cognitive impariment HX of STAGE IV SACRAL DECUBITUS ULCER: Patient Condition at Discharge: Stable Plan - Discharge Summary Discharge Rx Participant: No New Discharge Prescriptions: New Acetaminophen Tab [Tylenol] 650 mg PO Q6HR PRN tab PRN Reason: Mild Pain Or Fever > 100.5 Amoxicillin/Potassium Clav [Augmentin 875-125 Tablet] 1 tab PO Q12HR 12 Days #24 tab Continue Metoprolol Tartrate [Lopressor] 25 mg PEG/G-TUBE Q12H Magnesium Oxide [Magox 400] 400 mg PEG/G-TUBE DAILY Jevity 1.5 Sherman Liquid 2 can PEG/G-TUBE TID Ipratropium-Albuterol Nebulize [Duoneb 0.5 mg-3 mg/3 ml Soln] 3 ml INHALATION RT-Q4H PRN PRN Reason: SOB/Wheezing Gabapentin 250mg/5ml 500 mg PEG/G-TUBE Q6H Ferrous Sulfate Oral Elixir [Feosol Liquid] 300 mg PEG/G-TUBE DAILY HYDROcodone/APAP 7.5-325MG [[place] 7.5-325] 1 tab PEG/G-TUBE Q4H PRN #20 tab PRN Reason: Pain Cholecalciferol [Vitamin D3] 1,000 unit PEG/G-TUBE DAILY Docusate Oral Soln [Colace Oral Soln] 100 mg PO BID Nexium 20mg Packet 20 mg PEG/G-TUBE DAILY Warfarin [Coumadin] 2.5 mg PEG/G-TUBE DAILY Amantadine 50mg/5ml 100 mg PEG/G-TUBE BID Ascorbic Acid [Vitamin C] 250 mg PO DAILY Baclofen Oral Susp 5mg/Ml 5 mg PEG/G-TUBE TID guaiFENesin [guaiFENesin Oral Solution] 200 mg PEG/G-TUBE Q4H PRN PRN Reason: Cough Multivitamins, Thera Liquid [Theragran Liquid (formulary)] 5 ml PO DAILY OXcarbazepine 300MG/5ML SUSP [Trileptal Liquid] 150 mg PEG/G-TUBE BID Scopolamine 1.5MG/72Hr Patch [TransDerm Scop] 1 patch TRANSDERM Q72H Sodium Chloride [[place]] 1 spray EA NOSTRIL Q4H PRN PRN Reason: DRY NARES Discontinued cefTAZidime [Fortaz] 1 gm IV Q8HR Discharge Medication List Ferrous Sulfate Oral Elixir [Feosol Liquid] 300 mg PEG/G-TUBE DAILY 08/07/17 [ History] Gabapentin 250mg/5ml 500 mg PEG/G-TUBE Q6H 08/07/17 [History] Ipratropium-Albuterol Nebulize [Duoneb 0.5 mg-3 mg/3 ml Soln] 3 ml INHALATION RT -Q4H PRN 08/07/17 [History] Jevity 1.5 Sherman Liquid 2 can PEG/G-TUBE TID 08/07/17 [History] Magnesium Oxide [Magox 400] 400 mg PEG/G-TUBE DAILY 08/07/17 [History] Metoprolol Tartrate [Lopressor] 25 mg PEG/G-TUBE Q12H 08/07/17 [History] HYDROcodone/APAP 7.5-325MG [[place] 7.5-325] 1 tab PEG/G-TUBE Q4H PRN #20 tab [Rx] Amantadine 50mg/5ml 100 mg PEG/G-TUBE BID 12/28/17 [History] Ascorbic Acid [Vitamin C] 250 mg PO DAILY 12/28/17 [History] Baclofen Oral Susp 5mg/Ml 5 mg PEG/G-TUBE TID 12/28/17 [History] Cholecalciferol [Vitamin D3] 1,000 unit PEG/G-TUBE DAILY 12/28/17 [History] Docusate Oral Soln [Colace Oral Soln] 100 mg PO BID 12/28/17 [History] Multivitamins, Thera Liquid [Theragran Liquid (formulary)] 5 ml PO DAILY [History] Nexium 20mg Packet 20 mg PEG/G-TUBE DAILY 12/28/17 [History] OXcarbazepine 300MG/5ML SUSP [Trileptal Liquid] 150 mg PEG/G-TUBE BID 12/28/17 [ History] Scopolamine 1.5MG/72Hr Patch [TransDerm Scop] 1 patch TRANSDERM Q72H 12/28/17 [ History] Sodium Chloride [[place]] 1 spray EA NOSTRIL Q4H PRN 12/28/17 [History] Warfarin [Coumadin] 2.5 mg PEG/G-TUBE DAILY 12/28/17 [History] guaiFENesin [guaiFENesin Oral Solution] 200 mg PEG/G-TUBE Q4H PRN 12/28/17 [ History] Acetaminophen Tab [Tylenol] 650 mg PO Q6HR PRN tab 12/31/17 [Rx] Amoxicillin/Potassium Clav [Augmentin 875-125 Tablet] 1 tab PO Q12HR 12 Days # 24 tab 01/01/18 [Rx] Follow up Appointment(s)/Referral(s): Brenden Olivares DO [Primary Care Provider] - 1-2 days
[2018-01-01 09:36] VITALS: BP 146/78; PULSE 89
--- NOTE | 2018-01-09 12:25 | CDI ---
Last Revision, August 2017 Documentation Clarification Form Date: 01/09/18 From: Penelope Zhu Phone: If you have a question regarding this query, please contact Deb Bergeron at [phone] between 8am and 5pm. Admit Date: 12/28/2017 6:26:00 PM Patient Name: Chris Marvin Visit Number: [id number] Discharge Date: 01/01/18 ATTENTION: The Clinical Documentation Specialists (CDI) and [facility] Coding Staff appreciate your assistance in clarifying documentation. Please respond to the clarification below the line at the bottom and electronically sign. The CDI & [facility] Coding staff will review the response and follow-up if needed. Please note: Queries are made part of the Legal Health Record. If you have any questions, please contact the author of this message via ITS. Dr. Surya Salazar A sacral decubitus ulcer was documented in the in Dr. Farah's progress notes as stage 3. A sacral decubitus ulcer was documented in your H&P and Discharge summary and in Dr. Fletcher's 12/29 and 12/30 progress notes. History/Risk Factors: Patient is bedbound and has a history of MS and cognitive impairment. Location: Sacrum Wound description: sacral wound with no evidence of any cellulitis Consult: Sacral wound stage III In your professional opinion, can you please clarify the stage of the decubitus ulcer? Stage 1 Pressure/Decubitus Ulcer (intact skin, non-blanching redness of local area) Stage 2 Pressure/Decubitus Ulcer (Partial thickness, loss of dermis, pink wound bed) Stage 3 Pressure/Decubitus Ulcer (Full thickness tissue loss) Stage 4 Pressure/Decubitus Ulcer (Full thickness tissue loss with exposed bone , tendon, or muscle. May have slough or eschar present) Unstageable Other condition, please specify Unable to determine Agree with Dr Farah Stage 3 decubitus ulcer [facility]
--- NOTE | 2018-01-09 12:50 | CDI ---
Last Revision, August 2017 Documentation Clarification Form Date: 01/09/18 From: Penelope Zhu Phone: If you have a question regarding this query, please contact Deb Bergeron at [phone] between 8am and 5pm Admit Date: 12/28/2017 6:26:00 PM Patient Name: Chris Marvin Visit Number: [id number] Discharge Date: 01/01/18 ATTENTION: The Clinical Documentation Specialists (CDI) and [facility] Coding Staff appreciate your assistance in clarifying documentation. Please respond to the clarification below the line at the bottom and electronically sign. The CDI & [facility] Coding staff will review the response and follow-up if needed. Please note: Queries are made part of the Legal Health Record. If you have any questions, please contact the author of this message via ITS. Dr. Surya Salazar Possible pneumonia question of aspiration etiology was documented in Dr. Farah' s progress notes on 12/30 and 12/31: History/Risk Factors: Patient has a history of pneumonia, MS, dysphagia and is bedbound. Clinical Indicators: Decreased breath sounds in the bases. WBC/Left shift: 12/28 - 9.8, 12/29 - 8.2, 12/31 - 5.9 X-ray: 12/28 - No active cardiopulmonary disease. There is clearing of the infiltrates and mild atelectasis compared to old exam. 12/30 - Right lower lung inflitrate likely representing pneumonia. Lung/Breathing assessment: 12/30 has a new cough. Treatment: Antibiotics: cefapime and vancomycin already on board for UTI O2 2 lpm per nasal cannula Breathing Tx: Duoneb inhalation, In order to capture the severity of condition, please clarify if the condition signifies and you are treating for: Aspiration Pneumonia, identify if: Due to solids or liquids Bacterial Pneumonia, specify causal organism (if known) Viral Pneumonia, specify casual organism (if known) Healthcare Acquired Pneumonia/Pneumonia, unspecified Other, please specify Unable to determine Was pneumonia present on admission Yes No Unable to determine No pneumonia MTDD
--- NOTE | 2018-01-09 13:09 | CDI ---
Last Revision, August 2017 Documentation Clarification Form Date: 01/09/18 From: Penelope Zhu Phone: If you have a query regarding this query please contact Deb Bergeron at [phone]. Admit Date: 12/28/2017 6:26:00 PM Patient Name: Chris Marvin Visit Number: [id number] Discharge Date: 01/01 ATTENTION: The Clinical Documentation Specialists (CDI) and [facility] Coding Staff appreciate your assistance in clarifying documentation. Please respond to the clarification below the line at the bottom and electronically sign. The CDI & [facility] Coding staff will review the response and follow-up if needed. Please note: Queries are made part of the Legal Health Record. If you have any questions, please contact the author of this message via ITS. Dr. Surya Salazar Sepsis is documented in ED note, Dr. Farah's consult note and 12/30 progress note but not documented in the discharge summary. History/Risk Factors: Patient has an indwelling catheter and MS. Clinical Indicators: Fever and metabolic encephalopathy WBC/Left Shift: 9.8/7.6 Lactic acid: 0.7 Blood cultures: Not done. Vitals signs on admission: T. 101.7, P. 90, R. 22, BP 140/69 Treatment: Patient was given Antibiotics: IV cefepime, IV rocephin and IV vancomycin IV Bolus: sodium chloride 1,000 mls @999 mls/hr In your professional opinion, please clarify if these findings signify one of the following conditions, whether the condition is POA, and cause, if known: Sepsis ruled out SIRS, without underlying infectious process Sepsis Severe Sepsis Septic Shock Other, please specify Unable to determine Identify the (suspected) organism Link or clarify if there is associated (due to/with): Organ failure Shock Sepsis was present on admission resolved with treatment MTDD
== END 2018-01-01 10:10 | DRG 698 ==
LOC: EC 16:15 → 5MS5E 18:26
PROVIDERS: ADMIT Internal Medicine; ATTEND Internal Medicine
DX: T83.511A Infection and inflammatory reaction due to indwelling urethral catheter, initial encounter (principal); G93.41 Metabolic encephalopathy; R40.2341 Coma scale, best motor response, flexion withdrawal, in the field [EMT or ambulance]; A41.9 Sepsis, unspecified organism; G93.49 Other encephalopathy; L89.153 Pressure ulcer of sacral region, stage 3; I67.82 Cerebral ischemia; Z43.1 Encounter for attention to gastrostomy; R13.10 Dysphagia, unspecified; B95.2 Enterococcus as the cause of diseases classified elsewhere; G35 Multiple sclerosis; R15.9 Full incontinence of feces; N39.0 Urinary tract infection, site not specified; F32.9 Major depressive disorder, single episode, unspecified; R47.1 Dysarthria and anarthria; R79.1 Abnormal coagulation profile; D64.9 Anemia, unspecified; R33.9 Retention of urine, unspecified; M24.50 Contracture, unspecified joint; R40.2 Coma; R40.2141 Coma scale, eyes open, spontaneous, in the field [EMT or ambulance]; R68.84 Jaw pain; G31.9 Degenerative disease of nervous system, unspecified; R41.89 Other symptoms and signs involving cognitive functions and awareness; Z74.01 Bed confinement status; Z79.01 Long term (current) use of anticoagulants; Z79.899 Other long term (current) drug therapy; Z88.1 Allergy status to other antibiotic agents; Z86.14 Personal history of Methicillin resistant Staphylococcus aureus infection; Z86.718 Personal history of other venous thrombosis and embolism; Z87.440 Personal history of urinary (tract) infections; Z87.01 Personal history of pneumonia (recurrent); Y84.6 Urinary catheterization as the cause of abnormal reaction of the patient, or of later complication, without mention of misadventure at the time of the procedure
CPT/HCPCS: 36415; 70450; 71045; 71046; 80048; 80053; 80202; 81001; 83605; 83735; 84100; 85025; 85027; 85610; 85730; 87040; 87077; 87086; 87186; 87502; 93005; 94640; 94760; 96361; 96365; 96375; 99285

== ENCOUNTER 2018-02-15 15:49 | Emergency (ER) | payer MEDICARE, OTHER ==
--- NOTE | 2018-02-15 16:31 | ED ---
Recheck HPI - General Chief Complaint: Recheck/Abnormal Lab/Rx Stated Complaint: Leaking Peg Tube Time Seen by Provider: 02/15/18 15:56 Source: EMS, RN notes reviewed, old records reviewed Mode of arrival: EMS Limitations: physical limitation - History of Present Illness Initial Comments: 57-year-old male presents emergency Department chief complaint of needing a PEG tube replacement. He is had this PEG tube since July 2016. He reports that he's had the plastic erroded. Patient has received medications through the PEG tube. Patient has had this PEG tube since July 2016. Was placed in [facility]. He reports that he has had no other symptoms. - Related Data Home Medications Medication Instructions Recorded Confirmed Ferrous Sulfate Oral Elixir 300 mg PEG/G-TUBE DAILY 08/07/17 02/15/18 [Feosol Liquid] Gabapentin 250mg/5ml 500 mg PEG/G-TUBE Q6H 08/07/17 02/15/18 Ipratropium-Albuterol Nebulize 3 ml INHALATION RT-Q4H PRN 08/07/17 02/15/18 [Duoneb 0.5 mg-3 mg/3 ml Soln] Jevity 1.5 Sherman Liquid 2 can PEG/G-TUBE BID 08/07/17 02/15/18 Magnesium Oxide [Magox 400] 400 mg PEG/G-TUBE DAILY 08/07/17 02/15/18 Metoprolol Tartrate [Lopressor] 25 mg PEG/G-TUBE Q12H 08/07/17 02/15/18 Amantadine 50mg/5ml 100 mg PEG/G-TUBE Q12H 12/28/17 02/15/18 Ascorbic Acid [Vitamin C] 250 mg PEG/G-TUBE DAILY 12/28/17 02/15/18 Baclofen Oral Susp 5mg/Ml 5 mg PEG/G-TUBE TID 12/28/17 02/15/18 Cholecalciferol [Vitamin D3] 1,000 unit PEG/G-TUBE DAILY 12/28/17 02/15/18 Docusate Oral Soln [Colace Oral 100 mg PO BID 12/28/17 02/15/18 Soln] Nexium 20mg Packet 20 mg PEG/G-TUBE DAILY 12/28/17 02/15/18 Scopolamine 1.5MG/72Hr Patch 1 patch TRANSDERM Q72H 12/28/17 02/15/18 [TransDerm Scop] Sodium Chloride [[place]] 1 spray EA NOSTRIL Q4H PRN 12/28/17 02/15/18 Warfarin [Coumadin] 2.5 mg PEG/G-TUBE DAILY 12/28/17 02/15/18 guaiFENesin [guaiFENesin Oral 200 mg PEG/G-TUBE Q4H PRN 12/28/17 02/15/18 Solution] Acetaminophen 500mg/15ml 500 mg PEG/G-TUBE Q6H PRN 02/15/18 02/15/18 Amino Acids/Protein Hydrolys 30 ml PEG/G-TUBE DAILY 02/15/18 02/15/18 [Pro-Stat Supplement] Jevity 1.5 Sherman Liquid 1 can PEG/G-TUBE DAILY@1400 02/15/18 02/15/18 Multivitamins, Thera [Multivitamin 1 tab PO DAILY 02/15/18 02/15/18 (formulary)] OXcarbazepine 300MG/5ML SUSP 300 mg PEG/G-TUBE BID 02/15/18 02/15/18 [Trileptal Liquid] Previous Rx's Medication Instructions Recorded HYDROcodone/APAP 7.5-325MG [[place] 1 tab PEG/G-TUBE Q4H PRN #20 tab 08/14/17 7.5-325] Allergies Allergy/AdvReac Type Severity Reaction Status Date / Time meropenem [From Merrem] Allergy Rash/Hives Verified 12/28/17 16:27 Review of Systems ROS Statement: Those systems with pertinent positive or pertinent negative responses have been documented in the HPI. ROS Other: All systems not noted in ROS Statement are negative. Past Medical History Past Medical History: Deep Vein Thrombosis (DVT), Musculoskeletal Disorder, Pneumonia, Renal Disease Additional Past Medical History / Comment(s): MSpt poor historian-cog impariment / Impaired speech, NPO-peg tube,DVT-arm, , IDC ,INCONT OF BOWEL. IDC-UTI'S/ SEPSIS ,HX SACRALWOUND,CONTRACTURES,DYSARTHRIA/ANARTHRIA/DYSPHAGIA. BEDBOUND, RACHEL LIFT TO W/C. History of Any Multi-Drug Resistant Organisms: MRSA Date of last positivie culture/infection: 10/21/17 MDRO Source:: URINE Additional Past Surgical History / Comment(s): PEG TUBE, HX OF GASTROSTOMY, PICC LINE 08/07/17 .REMOVED. NEW PICC LINE PLACED 12-28-16 (RT) Past Anesthesia/Blood Transfusion Reactions: Unable to Obtain Past Psychological History: Depression Smoking Status: Never smoker Past Alcohol Use History: None Reported Past Drug Use History: None Reported - Past Family History Father Family Medical History: Unable to Obtain Mother Family Medical History: Unable to Obtain General Exam - General Exam Comments Initial Comments: 49-year-old male. Alert and oriented. No acute distress. Limitations: physical limitation General appearance: alert, in no apparent distress Head exam: Present: atraumatic, normocephalic, normal inspection Eye exam: Present: normal appearance, PERRL, EOMI. Absent: scleral icterus, conjunctival injection, periorbital swelling ENT exam: Present: normal exam, mucous membranes moist Neck exam: Present: normal inspection. Absent: tenderness, meningismus, lymphadenopathy Respiratory exam: Present: normal lung sounds bilaterally. Absent: respiratory distress, wheezes, rales, rhonchi, stridor Cardiovascular Exam: Present: regular rate, normal rhythm, normal heart sounds. Absent: systolic murmur, diastolic murmur, rubs, gallop, clicks GI/Abdominal exam: Present: soft, normal bowel sounds, other (Evidence of PEG tube an ostomy site. No significant drainage. The initial PEG tube did have a area of erosion from the plastic.). Absent: distended, tenderness, guarding, rebound, rigid Extremities exam: Present: normal inspection, full ROM, normal capillary refill. Absent: tenderness, pedal edema, joint swelling, calf tenderness Back exam: Present: normal inspection Neurological exam: Present: alert, oriented X3, CN II-XII intact Psychiatric exam: Present: normal affect, normal mood Skin exam: Present: warm, dry, intact, normal color. Absent: rash Course Vital Signs 02/15/18 15:50 Temperature 97.6 F Pulse Rate 98 Respiratory 16 Rate Blood Pressure 171/108 O2 Sat by Pulse 96 Oximetry Medical Decision Making - Medical Decision Making 57-year-old male present emergency room complaining of needing his PEG tube replaced. He had this placed in 2016 physician at [facility]. I received records from them and determine it was a 20-Dominican PEG tube. We removed the PEG tube. Patient initially had be mushroom cap type of G-Tube, and was removed by Dr. Ulrich. I then replaced this with a 20-Dominican gastrostomy tube. Placed without difficulty. We did not have the same type of tube to replace it at this time. Discussed that patient could follow-up with surgery. Patient will be following up with PCP. Disposition Clinical Impression: Leaking PEG tube Disposition: HOME SELF-CARE Condition: Good Instructions: How to Use and Care for Your PEG Tube (ED) Additional Instructions: Return to the emergency department if any alarming signs or symptoms occur. Is patient prescribed a controlled substance at d/c from ED?: No If prescribed controlled substance>3 days was MAPS reviewed?: No When asked, does pt state using other controlled substances?: No Referrals: Brenden Olivares DO [Primary Care Provider] - 1-2 days Time of Disposition: 18:36
[2018-02-15] MEDS ORDERED: LIDOCAINE URO-JET JELLY 2% 5 ML KIT URETHRAL ONE (16:50)
[2018-02-15 19:00] VITALS: RESP 18
[2018-02-15 20:02] VITALS: BP 168/102; PULSE 66; TEMP 97.2
== END 2018-02-15 20:55 | disposition home or self-care (01) ==
LOC: EC 15:49
DX: K94.23 Gastrostomy malfunction (principal); Z86.718 Personal history of other venous thrombosis and embolism; Z86.14 Personal history of Methicillin resistant Staphylococcus aureus infection; Z79.01 Long term (current) use of anticoagulants; Z79.899 Other long term (current) drug therapy; Z88.1 Allergy status to other antibiotic agents
CPT/HCPCS: 43760; 99283

== ENCOUNTER 2018-04-07 02:13 | Inpatient (IN) | payer MEDICARE, OTHER ==
[2018-04-07] MEDS ORDERED: SODIUM CHLORIDE 0.9% 500 ML IV STA (02:23)
[2018-04-07 03:01] LABS: Appearance,Urine Cloudy (Clear); Bacteria,Urine Many /hpf; Bilirubin,Urine Negative (Negative); Blood,Urine Moderate (Negative); Budding Yeast,Urine Few /hpf; Color,Urine Yellow; Glucose,Urine (UA) Negative (Negative); Ketones,Urine Negative (Negative); Leukocyte Esterase,Urine Large (Negative); Mucus,Urine Rare /hpf; Nitrite,Urine Negative (Negative); Protein,Urine 2+ (Negative); RBC,Urine 74 /hpf (0-5); Specific Gravity,Urine 1.015 (1.001-1.035); Urobilinogen,Urine <2.0 mg/dL (<2.0); WBC,Urine >182 /hpf (0-5)
[2018-04-07 03:03] LABS: Anisocytosis Slight; Basophils % (A) 0 %; Eosinophils # (A) 0.5 k/uL (0-0.7); Eosinophils % (A) 4 %; HCT 43.9 % (39.0-53.0); HGB 14.4 gm/dL (13.0-17.5); Lymphocytes % (A) 8 %; MCH 29.3 pg (25.0-35.0); MCHC 32.8 g/dL (31.0-37.0); MCV 89.2 fL (80.0-100.0); Mean Platelet Volume 7.6; Monocytes # (A) 0.8 k/uL (0-1.0); Monocytes % (A) 7 %; Neutrophils # (A) 9.5 k/uL (1.3-7.7); Neutrophils % (A) 80 %; Platelet Count 304 k/uL (150-450); RBC 4.92 m/uL (4.30-5.90); RDW 16.3 % (11.5-15.5)
[2018-04-07 03:07] LABS: INR 2.3 (<1.2); Partial Thromboplastin Time 34.8 sec (22.0-30.0); Prothrombin Time 21.1 sec (9.0-12.0)
[2018-04-07 03:08] LABS: Albumin 3.6 g/dL (3.5-5.0); Calcium 9.1 mg/dL (8.4-10.2); Magnesium 2.2 mg/dL (1.6-2.3); Phosphorus 5.1 mg/dL (2.5-4.5); Potassium 4.8 mmol/L (3.5-5.1); Total Bilirubin 0.2 mg/dL (0.2-1.3); Total Protein 6.5 g/dL (6.3-8.2)
[2018-04-07 03:26] LABS: Troponin I 0.031 ng/mL (0.000-0.034)
[2018-04-07 03:31] LABS: Creatine Kinase MB 2.6 ng/mL (0.0-2.4)
--- NOTE | 2018-04-07 03:46 | XR ---
EXAMINATION TYPE: XR chest 2V DATE OF EXAM: 04/07/2018 COMPARISON: 12/30/2017 HISTORY: Sepsis. Weakness. TECHNIQUE: Frontal and lateral views of the chest are obtained. FINDINGS: There is no heart failure nor confluent pneumonic infiltrate. Heart size is normal. There are chest leads. Bony thorax is intact. There is old left-sided healed rib fracture. IMPRESSION: No active cardiopulmonary disease. There is improved inspiration compared to old exam.
--- NOTE | 2018-04-07 03:50 | ED ---
General Adult HPI - General Chief complaint: Recheck/Abnormal Lab/Rx Stated complaint: Possible Sepsis Time Seen by Provider: 04/07/18 02:23 Source: EMS, RN notes reviewed, old records reviewed Mode of arrival: EMS Limitations: altered mental status - History of Present Illness Initial comments: This is a 49-year-old male the ER for evaluation. They presents for evaluation regarding altered mental state, patient was sent in for evaluation of fever possible sepsis, possible pneumonia. Patient's poor strain history is obtained from patient's chart - Related Data Home Medications Medication Instructions Recorded Confirmed Ferrous Sulfate Oral Elixir 300 mg PEG/G-TUBE DAILY 08/07/17 02/15/18 [Feosol Liquid] Gabapentin 250mg/5ml 500 mg PEG/G-TUBE Q6H 08/07/17 02/15/18 Ipratropium-Albuterol Nebulize 3 ml INHALATION RT-Q4H PRN 08/07/17 02/15/18 [Duoneb 0.5 mg-3 mg/3 ml Soln] Jevity 1.5 [place] Liquid 2 can PEG/G-TUBE BID 08/07/17 02/15/18 Magnesium Oxide [Magox 400] 400 mg PEG/G-TUBE DAILY 08/07/17 02/15/18 Metoprolol Tartrate [Lopressor] 25 mg PEG/G-TUBE Q12H 08/07/17 02/15/18 Amantadine 50mg/5ml 100 mg PEG/G-TUBE Q12H 12/28/17 02/15/18 Ascorbic Acid [Vitamin C] 250 mg PEG/G-TUBE DAILY 12/28/17 02/15/18 Baclofen Oral Susp 5mg/Ml 5 mg PEG/G-TUBE TID 12/28/17 02/15/18 Cholecalciferol [Vitamin D3] 1,000 unit PEG/G-TUBE DAILY 12/28/17 02/15/18 Docusate Oral Soln [Colace Oral 100 mg PO BID 12/28/17 02/15/18 Soln] Nexium 20mg Packet 20 mg PEG/G-TUBE DAILY 12/28/17 02/15/18 Scopolamine 1.5MG/72Hr Patch 1 patch TRANSDERM Q72H 12/28/17 02/15/18 [TransDerm Scop] Sodium Chloride [[place]] 1 spray EA NOSTRIL Q4H PRN 12/28/17 02/15/18 Warfarin [Coumadin] 2.5 mg PEG/G-TUBE DAILY 12/28/17 02/15/18 guaiFENesin [guaiFENesin Oral 200 mg PEG/G-TUBE Q4H PRN 12/28/17 02/15/18 Solution] Acetaminophen 500mg/15ml 500 mg PEG/G-TUBE Q6H PRN 02/15/18 02/15/18 Amino Acids/Protein Hydrolys 30 ml PEG/G-TUBE DAILY 02/15/18 02/15/18 [Pro-Stat Supplement] Jevity 1.5 [place] Liquid 1 can PEG/G-TUBE DAILY@1400 02/15/18 02/15/18 Multivitamins, Thera [Multivitamin 1 tab PO DAILY 02/15/18 02/15/18 (formulary)] OXcarbazepine 300MG/5ML SUSP 300 mg PEG/G-TUBE BID 02/15/18 02/15/18 [Trileptal Liquid] Previous Rx's Medication Instructions Recorded HYDROcodone/APAP 7.5-325MG [[place] 1 tab PEG/G-TUBE Q4H PRN #20 tab 08/14/17 7.5-325] Allergies Allergy/AdvReac Type Severity Reaction Status Date / Time meropenem [From Merrem] Allergy Rash/Hives Verified 04/07/18 02:27 Review of Systems ROS Statement: Those systems with pertinent positive or pertinent negative responses have been documented in the HPI. ROS Other: All systems not noted in ROS Statement are negative. Past Medical History Past Medical History: Deep Vein Thrombosis (DVT), Musculoskeletal Disorder, Pneumonia, Renal Disease Additional Past Medical History / Comment(s): MSpt poor historian-cog impariment / Impaired speech, NPO-peg tube,DVT-arm, , IDC ,INCONT OF BOWEL. IDC-UTI'S/ SEPSIS ,HX SACRALWOUND,CONTRACTURES,DYSARTHRIA/ANARTHRIA/DYSPHAGIA. BEDBOUND, RACHEL LIFT TO W/C. History of Any Multi-Drug Resistant Organisms: MRSA Date of last positivie culture/infection: 10/21/17 MDRO Source:: URINE Additional Past Surgical History / Comment(s): PEG TUBE, HX OF GASTROSTOMY, PICC LINE 11/7/17 .REMOVED. NEW PICC LINE PLACED 12-28-16 (RT) Past Anesthesia/Blood Transfusion Reactions: Unable to Obtain Past Psychological History: Depression Smoking Status: Never smoker Past Alcohol Use History: None Reported Past Drug Use History: None Reported - Past Family History Father Family Medical History: Unable to Obtain Mother Family Medical History: Unable to Obtain General Exam Limitations: altered mental status General appearance: alert, in no apparent distress Head exam: Present: atraumatic, normocephalic, normal inspection Eye exam: Present: normal appearance, PERRL, EOMI. Absent: scleral icterus, conjunctival injection, periorbital swelling ENT exam: Present: normal exam, mucous membranes moist Neck exam: Present: normal inspection. Absent: tenderness, meningismus, lymphadenopathy Respiratory exam: Present: normal lung sounds bilaterally. Absent: respiratory distress, wheezes, rales, rhonchi, stridor Cardiovascular Exam: Present: regular rate, normal rhythm, normal heart sounds. Absent: systolic murmur, diastolic murmur, rubs, gallop, clicks GI/Abdominal exam: Present: soft, normal bowel sounds. Absent: distended, tenderness, guarding, rebound, rigid Extremities exam: Present: normal inspection, full ROM, normal capillary refill. Absent: tenderness, pedal edema, joint swelling, calf tenderness Back exam: Present: normal inspection Neurological exam: Present: alert, oriented X3, CN II-XII intact Psychiatric exam: Present: normal affect, normal mood Skin exam: Present: warm, dry, intact, normal color. Absent: rash Course Vital Signs 04/07/18 04/07/18 02:14 03:26 Temperature 98.2 F Pulse Rate 86 83 Respiratory 22 16 Rate Blood Pressure 126/77 133/85 O2 Sat by Pulse 98 97 Oximetry - Reevaluation(s) Reevaluation #1: 04/07/18 04:21 Medical records reviewed Reevaluation #2: 04/07/18 04:21 Patient having no significant hemodynamic changes EKG Findings - EKG Comments: EKG Findings:: EKG shows normal sinus rhythm rate of 83, ID 1:30, QRS 78, QTC 413 Medical Decision Making - Medical Decision Making 57 male the ER for evaluation positive UTI positive outpatient possible fever pneumonia. X-rays normal here, we'll start on significantly broad-spectrum antibiotics admitted for IV antibiotics - Lab Data Result diagrams: 04/07/18 02:40 04/07/18 02:40 Lab Results 04/07/18 04/07/18 04/07/18 Range/Units 02:40 02:40 02:40 WBC 12.0 H (3.8-10.6) k/uL RBC 4.92 (4.30-5.90) m/uL Hgb 14.4 (13.0-17.5) gm/dL Hct 43.9 (39.0-53.0) % MCV 89.2 (80.0-100.0) fL MCH 29.3 (25.0-35.0) pg MCHC 32.8 (31.0-37.0) g/dL RDW 16.3 H (11.5-15.5) % Plt Count 304 (150-450) k/uL Neutrophils % 80 % Lymphocytes % 8 % Monocytes % 7 % Eosinophils % 4 % Basophils % 0 % Neutrophils # 9.5 H (1.3-7.7) k/uL Lymphocytes # 1.0 (1.0-4.8) k/uL Monocytes # 0.8 (0-1.0) k/uL Eosinophils # 0.5 (0-0.7) k/uL Basophils # 0.0 (0-0.2) k/uL Anisocytosis Slight PT (9.0-12.0) sec INR (<1.2) APTT (22.0-30.0) sec Sodium 133 L (137-145) mmol/L Potassium 4.8 (3.5-5.1) mmol/L Chloride 94 L (98-107) mmol/L Carbon Dioxide 26 (22-30) mmol/L Anion Gap 13 mmol/L BUN 37 H (9-20) mg/dL Creatinine 1.40 H (0.66-1.25) mg/dL Est GFR (CKD-EPI)AfAm 64 (>60 ml/min/1.73 sqM) Est GFR (CKD-EPI)NonAf 55 (>60 ml/min/1.73 sqM) Glucose 119 H (74-99) mg/dL Plasma Lactic Acid [place] (0.7-2.0) mmol/L Calcium 9.1 (8.4-10.2) mg/dL Phosphorus 5.1 H (2.5-4.5) mg/dL Magnesium 2.2 (1.6-2.3) mg/dL Total Bilirubin 0.2 (0.2-1.3) mg/dL AST 21 (17-59) U/L ALT 31 (21-72) U/L Alkaline Phosphatase 98 (38-126) U/L Total Creatine Kinase 66 (55-170) U/L CK-MB (CK-2) 2.6 H* (0.0-2.4) ng/mL CK-MB (CK-2) Rel Index 3.9 Troponin I 0.031 (0.000-0.034) ng/mL Total Protein 6.5 (6.3-8.2) g/dL Albumin 3.6 (3.5-5.0) g/dL TSH 1.490 (0.465-4.680) mIU/L Urine Color Urine Appearance (Clear) Urine pH (5.0-8.0) Ur Specific [place] (1.001-1.035) Urine Protein (Negative) Urine Glucose (UA) (Negative) Urine Ketones (Negative) Urine Blood (Negative) Urine Nitrite (Negative) Urine Bilirubin (Negative) Urine Urobilinogen (<2.0) mg/dL Ur Leukocyte Esterase (Negative) Urine RBC (0-5) /hpf Urine WBC (0-5) /hpf Urine WBC Clumps (None) /hpf Urine Bacteria (None) /hpf Urine Mucus (None) /hpf Urine Yeast (Budding) (None) /hpf 04/07/18 04/07/18 04/07/18 Range/Units 02:40 02:40 02:40 WBC (3.8-10.6) k/uL RBC (4.30-5.90) m/uL Hgb (13.0-17.5) gm/dL Hct (39.0-53.0) % MCV (80.0-100.0) fL MCH (25.0-35.0) pg MCHC (31.0-37.0) g/dL RDW (11.5-15.5) % Plt Count (150-450) k/uL Neutrophils % % Lymphocytes % % Monocytes % % Eosinophils % % Basophils % % Neutrophils # (1.3-7.7) k/uL Lymphocytes # (1.0-4.8) k/uL Monocytes # (0-1.0) k/uL Eosinophils # (0-0.7) k/uL Basophils # (0-0.2) k/uL Anisocytosis PT 21.1 H (9.0-12.0) sec INR 2.3 H (<1.2) APTT 34.8 H (22.0-30.0) sec Sodium (137-145) mmol/L Potassium (3.5-5.1) mmol/L Chloride (98-107) mmol/L Carbon Dioxide (22-30) mmol/L Anion Gap mmol/L BUN (9-20) mg/dL Creatinine (0.66-1.25) mg/dL Est GFR (CKD-EPI)AfAm (>60 ml/min/1.73 sqM) Est GFR (CKD-EPI)NonAf (>60 ml/min/1.73 sqM) Glucose (74-99) mg/dL Plasma Lactic Acid [place] 1.4 (0.7-2.0) mmol/L Calcium (8.4-10.2) mg/dL Phosphorus (2.5-4.5) mg/dL Magnesium (1.6-2.3) mg/dL Total Bilirubin (0.2-1.3) mg/dL AST (17-59) U/L ALT (21-72) U/L Alkaline Phosphatase (38-126) U/L Total Creatine Kinase (55-170) U/L CK-MB (CK-2) (0.0-2.4) ng/mL CK-MB (CK-2) Rel Index Troponin I (0.000-0.034) ng/mL Total Protein (6.3-8.2) g/dL Albumin (3.5-5.0) g/dL TSH (0.465-4.680) mIU/L Urine Color Yellow Urine Appearance Cloudy (Clear) Urine pH 6.0 (5.0-8.0) Ur Specific [place] 1.015 (1.001-1.035) Urine Protein 2+ H (Negative) Urine Glucose (UA) Negative (Negative) Urine Ketones Negative (Negative) Urine Blood Moderate H (Negative) Urine Nitrite Negative (Negative) Urine Bilirubin Negative (Negative) Urine Urobilinogen <2.0 (<2.0) mg/dL Ur Leukocyte Esterase Large H (Negative) Urine RBC 74 H (0-5) /hpf Urine WBC >182 H (0-5) /hpf Urine WBC Clumps Many H (None) /hpf Urine Bacteria Many H (None) /hpf Urine Mucus Rare H (None) /hpf Urine Yeast (Budding) Few H (None) /hpf - Radiology Data Radiology results: report reviewed (Chest x-rays negative for acute disease), image reviewed Disposition Clinical Impression: UTI (urinary tract infection), Altered mental status, Fever, Failure of outpatient treatment Disposition: ADMITTED IP TO THIS HOSP Condition: Fair Is patient prescribed a controlled substance at d/c from ED?: No Referrals: Brenden Olivares DO [Primary Care Provider] - 1-2 days
[2018-04-07] MEDS ORDERED: SODIUM CHLORIDE 0.9% 1,000 ML IV ONE (04:19)
[2018-04-07] MEDS ORDERED: LEVOFLOXACIN 750MG-D5W PMX 750 MG in DEXTROSE/WATER 1 150ML.BAG IVPB STA (04:20)
[2018-04-07] MEDS ORDERED: PIPERACILLIN-TAZOBACTAM 3.375 GM in DEXTROSE/WATER 1 50ML.BAG IVPB STA (04:20)
[2018-04-07] MEDS ORDERED: LEVOFLOXACIN 750MG-D5W PMX 750 MG in DEXTROSE/WATER 1 150ML.BAG IVPB SCH (04:30)
[2018-04-07 07:37] LABS: Glucose,Whole Blood 110 mg/dL (75-99)
[2018-04-07] MEDS: LEVOFLOXACIN 750MG-D5W PMX 750 MG in DEXTROSE/WATER 1 150ML.BAG IVPB SCH (07:51)
[2018-04-07] MEDS ORDERED: ENOXAPARIN 40 MG/0.4 ML SYRINGE SQ SCH (09:00)
[2018-04-07 12:38] LABS: Glucose,Whole Blood 106 mg/dL (75-99)
[2018-04-07] MEDS: PIPERACILLIN-TAZOBACTAM 3.375 GM in DEXTROSE/WATER 1 50ML.BAG IVPB SCH ×2 (14:08→22:45)
[2018-04-07] MEDS ORDERED: NON-FORMULARY DRUG (Amino Acids/Protein Hydrolys [Pro-Stat Supplement] 30 ML) PEG/G-TUBE SCH (16:30)
[2018-04-07 17:27] LABS: Glucose,Whole Blood 94 mg/dL (75-99)
--- NOTE | 2018-04-07 17:33 | P.HPIM ---
History of Present Illness H&P Date: 04/07/18 Chief Complaint: Altered mental status Mr. Marvin is a 57-year-old male with a past medical history of multiple sclerosis, DVT, bed bound with contractures, dependence on tube feeds for nutrition, dysarthria and dysphagia sent in from his [facility] for altered mental status changes. Patient is nonverbal and confused at baseline. Most of the history is taken from the sister who is at the bedside. Sister mentions that patient was having cough and difficulty in breathing and so had a chest x-ray done which was positive for right lower lobe pneumonia and so he has been started on ciprofloxacin. She visited him on and he was at his baseline. She mentions that at baseline he understands few things and can follow simple commands that he is not able to do currently. And on examination patient has contact his of both her lower extremities. And he is weak in the left upper extremity. Sr. states that he will be able to move both his hands when they move him around in the bed. This is something new for him. Patient has a Stein's catheter in place chronically. He has a PEG tube in place for nutrition. He cannot eat or drink anything by mouth. Patient has a history of sacral decubitus ulcers in the past that is healing now. Review of systems: Could not be done as the patient cannot communicate and is confused. Review of Systems Could not be done as the patient is nonverbal Past Medical History Past Medical History: Deep Vein Thrombosis (DVT), Musculoskeletal Disorder, Pneumonia, Renal Disease Additional Past Medical History / Comment(s): MSpt poor historian-cog impariment / Impaired speech, NPO-peg tube,DVT-arm, , IDC ,INCONT OF BOWEL. IDC-UTI'S/ SEPSIS ,HX SACRALWOUND,CONTRACTURES,DYSARTHRIA/ANARTHRIA/DYSPHAGIA. BEDBOUND, RACHEL LIFT TO W/C. History of Any Multi-Drug Resistant Organisms: MRSA Date of last positivie culture/infection: 10/21/17 MDRO Source:: URINE Additional Past Surgical History / Comment(s): PEG TUBE, HX OF GASTROSTOMY, PICC LINE 08/07/17 .REMOVED. NEW PICC LINE PLACED 12-28-16 (RT) Past Anesthesia/Blood Transfusion Reactions: Unable to Obtain Past Psychological History: Depression Additional Psychological History / Comment(s): PT RESIDES AT [facility] [phone] Smoking Status: Never smoker Past Alcohol Use History: None Reported Past Drug Use History: None Reported - Past Family History Father Family Medical History: Unable to Obtain Mother Family Medical History: Unable to Obtain Medications and Allergies Home Medications Medication Instructions Recorded Confirmed Type Ferrous Sulfate Oral Elixir 300 mg PEG/G-TUBE DAILY 08/07/17 04/07/18 History [Feosol Liquid] Gabapentin 250mg/5ml 500 mg PEG/G-TUBE Q6H 08/07/17 04/07/18 History Ipratropium-Albuterol Nebulize 3 ml INHALATION RT-Q4H PRN 08/07/17 04/07/18 History [Duoneb 0.5 mg-3 mg/3 ml Soln] Jevity 1.5 [place] Liquid 2 can PEG/G-TUBE BID@06,22 08/07/17 04/07/18 History Magnesium Oxide [Magox 400] 400 mg PEG/G-TUBE DAILY 08/07/17 04/07/18 History Metoprolol Tartrate [Lopressor] 25 mg PEG/G-TUBE Q12H 08/07/17 04/07/18 History HYDROcodone/APAP 7.5-325MG [[place] 1 tab PEG/G-TUBE Q4H PRN #20 tab 08/14/1705/18 Rx 7.5-325] Amantadine 50mg/5ml 100 mg PEG/G-TUBE Q12H 12/28/17 04/07/18 History Ascorbic Acid [Vitamin C] 250 mg PEG/G-TUBE DAILY 12/28/17 04/07/18 History Cholecalciferol [Vitamin D3] 1,000 unit PEG/G-TUBE DAILY 12/28/17 04/07/18 History Docusate Oral Soln [Colace Oral 100 mg PEG/G-TUBE BID 12/28/17 04/07/18 History Soln] Scopolamine 1.5MG/72Hr Patch 1 patch TRANSDERM Q72H 12/28/17 04/07/18 History [TransDerm Scop] Sodium Chloride [[place]] 1 spray EA NOSTRIL Q4H PRN 12/28/17 04/07/18 History Warfarin [Coumadin] 2.5 mg PEG/G-TUBE DAILY 12/28/17 04/07/18 History guaiFENesin [guaiFENesin Oral 200 mg PEG/G-TUBE Q6H 12/28/17 04/07/18 History Solution] Acetaminophen 500mg/15ml 500 mg PEG/G-TUBE Q6H PRN 02/15/18 04/07/18 History Amino Acids/Protein Hydrolys 30 ml PEG/G-TUBE DAILY 02/15/18 04/07/18 History [Pro-Stat Supplement] Jevity 1.5 [place] Liquid 1 can PEG/G-TUBE DAILY@1400 02/15/18 04/07/18 History Multivitamins, Thera [Multivitamin 1 tab PO DAILY 02/15/18 04/07/18 History (formulary)] OXcarbazepine 300MG/5ML SUSP 300 mg PEG/G-TUBE Q12H 02/15/18 04/07/18 History [Trileptal Liquid] Baclofen 5 mg PEG/G-TUBE TID 04/07/18 04/07/18 History Ciprofloxacin HCl [Cipro] 500 mg PEG/G-TUBE Q12HR 04/07/18 04/07/18 History Nexium 20mg Packet 20 mg PEG/G-TUBE DAILY 04/07/18 04/07/18 History Allergies Allergy/AdvReac Type Severity Reaction Status Date / Time meropenem [From Merrem] Allergy Rash/Hives Verified 04/07/18 11:46 Physical Exam Vitals: Vital Signs Temp Pulse Pulse Pulse Resp BP BP 04/07/18 16:21 04/07/18 16:15 04/07/18 15:00 106 H 04/07/18 14:51 97.1 F L 118 H 20 149/76 04/07/18 05:57 98.2 F 79 16 137/85 04/07/18 04:40 97.9 F 85 18 136/88 04/07/18 03:26 83 16 133/85 04/07/18 02:14 98.2 F 86 22 126/77 Pulse Ox 04/07/18 16:21 96 04/07/18 16:15 88 L 04/07/18 15:00 04/07/18 14:51 95 04/07/18 05:57 97 04/07/18 04:40 99 04/07/18 03:26 97 04/07/18 02:14 98 Intake and Output 04/07/18 04/07/18 04/07/18 06:59 14:59 22:59 Output Total 1000 Balance -1000 Output: Urine 1000 Other: Voiding Method Indwelling Catheter Indwelling Catheter Weight 86.183 kg GENERAL EXAM GEN. APPEARANCE: alert, in no apparent distress HEAD EXAM: Atraumatic normocephalic EYE EXAM: Mild pallor no icterus ENT EXAM: Mucous membranes are moist NECK EXAM: No thyromegaly or lymphadenopathy RESPIRATORY EXAM: Bilateral rhonchi heard CARDIOVASCULAR EXAM: S1 and S2 heard no additional sounds GI/ABDOMINAL EXAM: Soft, normal bowel sounds. PEG tube in place no signs of active infection. Bowel sounds are positive. EXTREMITIES EXAM: Bilateral lower extremity contractures. Stein's catheter in place. BACK EXAM: Stage II sacral decubitus ulcer with good granulation tissue seen. No active infection NEUROLOGICAL EXAM: Awake, bilateral lower extremity contractures. Left upper extremity is flaccid, strength is 1 out of 5. Right upper extremity strength is 3 out of 5. PSYCHIATRIC EXAM: Cannot be assessed Results CBC & Chem 7: 04/07/18 02:40 04/07/18 02:40 Labs: Abnormal Lab Results - Last 24 Hours (Table) 04/07/18 04/07/18 04/07/18 Range/Units 02:40 02:40 02:40 WBC 12.0 H (3.8-10.6) k/uL RDW 16.3 H (11.5-15.5) % Neutrophils # 9.5 H (1.3-7.7) k/uL PT (9.0-12.0) sec INR (<1.2) APTT (22.0-30.0) sec Sodium 133 L (137-145) mmol/L Chloride 94 L (98-107) mmol/L BUN 37 H (9-20) mg/dL Creatinine 1.40 H (0.66-1.25) mg/dL Glucose 119 H (74-99) mg/dL POC Glucose (mg/dL) (75-99) mg/dL Phosphorus 5.1 H (2.5-4.5) mg/dL CK-MB (CK-2) 2.6 H* (0.0-2.4) ng/mL Urine Protein (Negative) Urine Blood (Negative) Ur Leukocyte Esterase (Negative) Urine RBC (0-5) /hpf Urine WBC (0-5) /hpf Urine WBC Clumps (None) /hpf Urine Bacteria (None) /hpf Urine Mucus (None) /hpf Urine Yeast (Budding) (None) /hpf 04/07/18 04/07/18 04/07/18 Range/Units 02:40 02:40 06:54 WBC (3.8-10.6) k/uL RDW (11.5-15.5) % Neutrophils # (1.3-7.7) k/uL PT 21.1 H (9.0-12.0) sec INR 2.3 H (<1.2) APTT 34.8 H (22.0-30.0) sec Sodium (137-145) mmol/L Chloride (98-107) mmol/L BUN (9-20) mg/dL Creatinine (0.66-1.25) mg/dL Glucose (74-99) mg/dL POC Glucose (mg/dL) 110 H (75-99) mg/dL Phosphorus (2.5-4.5) mg/dL CK-MB (CK-2) (0.0-2.4) ng/mL Urine Protein 2+ H (Negative) Urine Blood Moderate H (Negative) Ur Leukocyte Esterase Large H (Negative) Urine RBC 74 H (0-5) /hpf Urine WBC >182 H (0-5) /hpf Urine WBC Clumps Many H (None) /hpf Urine Bacteria Many H (None) /hpf Urine Mucus Rare H (None) /hpf Urine Yeast (Budding) Few H (None) /hpf 04/07/18 Range/Units 12:25 WBC (3.8-10.6) k/uL RDW (11.5-15.5) % Neutrophils # (1.3-7.7) k/uL PT (9.0-12.0) sec INR (<1.2) APTT (22.0-30.0) sec Sodium (137-145) mmol/L Chloride (98-107) mmol/L BUN (9-20) mg/dL Creatinine (0.66-1.25) mg/dL Glucose (74-99) mg/dL POC Glucose (mg/dL) 106 H (75-99) mg/dL Phosphorus (2.5-4.5) mg/dL CK-MB (CK-2) (0.0-2.4) ng/mL Urine Protein (Negative) Urine Blood (Negative) Ur Leukocyte Esterase (Negative) Urine RBC (0-5) /hpf Urine WBC (0-5) /hpf Urine WBC Clumps (None) /hpf Urine Bacteria (None) /hpf Urine Mucus (None) /hpf Urine Yeast (Budding) (None) /hpf Microbiology - Last 24 Hours (Table) 04/07/18 02:40 Urine Culture - Preliminary Urine,Catheterized Thrombosis Risk Factor Assmnt - Choose All That Apply Each Factor Represents 1 point: Age 41-60 years, Medical pt on bed rest Each Risk Factor Represents 2 Points: Patient confined to bed Each Risk Factor Represents 3 Points: History of DVT/PE Thrombosis Risk Factor Assessment Total Risk Factor Score: 7 Thrombosis Risk Factor Assessment Level: High Risk Assessment and Plan Assessment: ASSESSMENT Encephalopathy - unclear etiology Questionable UTI Recent history of right sided pneumonia History of DVT on anticoagulation Hypovolemic hyponatremia Acute kidney [id number] Multiple sclerosis with contractures bedbound Stage II sacral decubitus ulcer Left upper extremity weakness Mild protein calorie malnutrition Chronic debility Plan: Patient has been empirically started on levofloxacin and Zosyn for questionable UTI which will be continued and also recent diagnosis of pneumonia. ID consult has been placed. As the patient has left upper extremity weakness that is acute will get a CAT scan of the head and neurology consult was also placed. Continue with anticoagulation for history of DVT- patient is on Coumadin at home has been changed to Lovenox for now. Resume all of his home medications and tube feeds. Overall prognosis is poor. The treatment plan was discussed in detail with the patient's sister at the bedside. Further recommendations to follow depending on the progress of the patient.
[2018-04-07] MEDS: AMANTADINE HCL PEG/G-TUBE SCH (18:17)
[2018-04-07] MEDS: ASCORBIC ACID 500 MG TAB PEG/G-TUBE SCH (18:19)
[2018-04-07] MEDS: BACLOFEN 10 MG TAB PEG/G-TUBE SCH ×2 (18:20→23:23)
[2018-04-07] MEDS: GABAPENTIN 400 MG CAP PEG/G-TUBE SCH ×2 (18:20→23:22)
[2018-04-07] MEDS: GABAPENTIN 100 MG CAP PEG/G-TUBE SCH ×2 (18:21→23:23)
[2018-04-07] MEDS: METOPROLOL TARTRATE 25 MG TAB PEG/G-TUBE SCH (18:21)
[2018-04-07] MEDS: OXcarbazepine 300MG/5ML SUSP 15,000 MG/250 ML BOTTLE PEG/G-TUBE SCH (18:23)
[2018-04-07] MEDS: SCOPOLAMINE 1.5MG/72HR PATCH TRANSDERM SCH (18:23)
--- NOTE | 2018-04-07 18:44 | CT ---
EXAMINATION TYPE: CT brain wo con DATE OF EXAM: 04/07/2018 COMPARISON: 12/28/2017 HISTORY: 57-year-old male with left-sided weakness, MS. Patient poor historian and had difficulty fol lowing directions TECHNIQUE: Examination was done in axial plane without intravenous contrast. Coronal and sagittal r econstructions performed. CT DLP: 2374 mGycm Automated exposure control for dose reduction was used. FINDINGS: Severe artifacts due to patient motion despite being rescanned. Severe confluent white matter hypodensities in both cerebral hemispheres redemonstrated. No evident mass effect or midline shift. Mild ventriculomegaly appears unchanged likely due to centra l volume loss. Stable CSF density lateral right posterior cranial fossa could represent arachnoid cys t or area of encephalomalacia relating to prior infarct. No obvious intracranial hemorrhage. IMPRESSION: Severely degraded exam due to patient movement despite being rescanned. No obvious midline shift, mas s effect, or evidence of large intracranial hemorrhage. The exam can be repeated when patient is coop erative or sedated. Mild ventriculomegaly and confluent white matter hypodensities are unchanged.
[2018-04-07] MEDS: IPRATROPIUM-ALBUTEROL 3 ML NEB INHALATION PRN (18:55)
[2018-04-07 20:45] LABS: Glucose,Whole Blood 99 mg/dL (75-99)
[2018-04-07] MEDS: DOCUSATE ORAL SOLN 100 MG/10 ML CUP PEG/G-TUBE SCH (23:21)
[2018-04-07] MEDS: ENOXAPARIN 100 MG/ML SYRINGE SQ SCH (23:22)
[2018-04-08] MEDS: GABAPENTIN 400 MG CAP PEG/G-TUBE SCH ×4 (04:59→21:56)
[2018-04-08] MEDS: OXcarbazepine 300MG/5ML SUSP 15,000 MG/250 ML BOTTLE PEG/G-TUBE SCH ×2 (05:00→16:44)
[2018-04-08] MEDS: METOPROLOL TARTRATE 25 MG TAB PEG/G-TUBE SCH ×2 (05:00→16:44)
[2018-04-08] MEDS: LEVOFLOXACIN 750MG-D5W PMX 750 MG in DEXTROSE/WATER 1 150ML.BAG IVPB SCH (05:00)
[2018-04-08] MEDS: GABAPENTIN 100 MG CAP PEG/G-TUBE SCH ×4 (05:00→21:56)
[2018-04-08] MEDS: ACETAMINOPHEN TAB 325 MG TAB PO PRN (06:28)
[2018-04-08] MEDS: PIPERACILLIN-TAZOBACTAM 3.375 GM in DEXTROSE/WATER 1 50ML.BAG IVPB SCH ×3 (06:34→21:57)
[2018-04-08] MEDS: AMANTADINE HCL PEG/G-TUBE SCH ×2 (06:36→16:43)
[2018-04-08 06:49] LABS: Glucose,Whole Blood 104 mg/dL (75-99)
[2018-04-08] MEDS: ASCORBIC ACID 500 MG TAB PEG/G-TUBE SCH (07:57)
[2018-04-08] MEDS: DOCUSATE ORAL SOLN 100 MG/10 ML CUP PEG/G-TUBE SCH ×2 (07:57→21:57)
[2018-04-08] MEDS: MAGNESIUM OXIDE 400 MG TAB PEG/G-TUBE SCH (07:57)
[2018-04-08] MEDS: ENOXAPARIN 100 MG/ML SYRINGE SQ SCH (07:58)
[2018-04-08] MEDS: FERROUS SULFATE ORAL ELIXIR 300 MG/5 ML CUP PEG/G-TUBE SCH (07:58)
[2018-04-08] MEDS: CHOLECALCIFEROL 1,000 UNIT TAB PEG/G-TUBE SCH (07:58)
[2018-04-08] MEDS: MULTIVITAMINS, THERA 1 EACH TAB PO SCH (07:59)
[2018-04-08] MEDS: PANTOPRAZOLE SODIUM 40 MG GRANULE PKT PEG/G-TUBE SCH (07:59)
[2018-04-08] MEDS: BACLOFEN 10 MG TAB PEG/G-TUBE SCH ×3 (08:11→21:57)
[2018-04-08 08:30] LABS: Basophils % (A) 0 %; Eosinophils # (A) 0.3 k/uL (0-0.7); Eosinophils % (A) 2 %; HCT 39.5 % (39.0-53.0); HGB 12.7 gm/dL (13.0-17.5); Lymphocytes # (A) 1.1 k/uL (1.0-4.8); Lymphocytes % (A) 10 %; MCH 28.4 pg (25.0-35.0); MCHC 32.1 g/dL (31.0-37.0); MCV 88.5 fL (80.0-100.0); Mean Platelet Volume 7.6; Monocytes # (A) 0.8 k/uL (0-1.0); Monocytes % (A) 7 %; Neutrophils # (A) 8.3 k/uL (1.3-7.7); Neutrophils % (A) 78 %; Platelet Count 301 k/uL (150-450); RBC 4.46 m/uL (4.30-5.90); RDW 15.6 % (11.5-15.5); WBC 10.6 k/uL (3.8-10.6)
[2018-04-08 08:42] LABS: Albumin 3.3 g/dL (3.5-5.0); Calcium 8.7 mg/dL (8.4-10.2); Potassium 4.1 mmol/L (3.5-5.1); Total Bilirubin 0.3 mg/dL (0.2-1.3)
[2018-04-08] MEDS ORDERED: LORazepam 2 MG/ML INJ IV STA (09:53)
--- NOTE | 2018-04-08 11:00 | CT ---
EXAMINATION TYPE: CT brain wo con DATE OF EXAM: 04/08/2018 COMPARISON: Prior CT brain 04/07/[address] brain 12/28/2017. HISTORY: Left sided weakness and MS. CT DLP: 986.3 mGycm Automated exposure control for dose reduction was used. Helical acquisition through the brain. FINDINGS: Mild mucoperiosteal thickening present in the maxillary sinus, there may be small polyp on the left, and mucosal thickening greater on the right. There is some motion on the exam. Calvarium is intact. B rain density is stable. White matter low-attenuation compatible with demyelination. There is no hemor rhage or hydrocephalus. Cortical atrophy is extensive. Asymmetric cerebrospinal fluid density lateral to the right cerebellar hemisphere could be indicative of underlying arachnoid cyst and is stable. IMPRESSION: FINDINGS ARE SIMILAR TO PRIOR EXAM. DIFFICULT TO EXCLUDE INFARCT, MRI LIKELY WOULD BE OF BENEFIT.
[2018-04-08 11:38] LABS: Glucose,Whole Blood 132 mg/dL (75-99)
--- NOTE | 2018-04-08 11:46 | P.PN ---
Subjective Progress Note Date: 04/08/18 Principal diagnosis: Encephalopathy Mr. Marvin is a 57-year-old male with a past medical history of multiple sclerosis, DVT, bed bound with contractures, dependence on tube feeds for nutrition, dysarthria and dysphagia sent in from his [facility] for altered mental status changes. Patient is nonverbal and confused at baseline. Most of the history was taken from the sister who is at the bedside. Sister mentions that patient was having cough and difficulty in breathing and so had a chest x-ray done which was positive for right lower lobe pneumonia and so he has been started on ciprofloxacin. She visited him on and he was at his baseline. She mentions that at baseline he understands few things and can follow simple commands that he is not able to do currently. Patient has a Stein's catheter in place chronically. He has a PEG tube in place for nutrition. He cannot eat or drink anything by mouth. On 04/08/2018- patient was lying comfortably in the bed. Patient appears to be much more alert compared to yesterday. Review of systems: Could not be done as the patient cannot communicate. He could follow simple commands like squeezing my hand. Overnight the patient spiked a fever of 101.6. Objective - Vital Signs Vital signs: Vital Signs Temp 99.2 F 04/08/18 08:44 Pulse 100 04/08/18 08:44 Resp 24 04/08/18 08:44 BP 109/65 04/08/18 08:44 Pulse Ox 97 04/08/18 08:44 Intake & Output 04/07/18 04/08/18 04/08/18 18:59 06:59 18:59 Intake Total 480 Output Total 1000 1000 Balance -1000 -1000 480 Weight 68 kg Intake: Oral 480 Output: Urine 1000 1000 Other: Voiding Method Indwelling Catheter Indwelling Catheter Indwelling Catheter # Voids 0 # Bowel Movements 0 - Exam GEN. APPEARANCE: alert, in no apparent distress HEAD EXAM: Atraumatic normocephalic EYE EXAM: Mild pallor no icterus ENT EXAM: Mucous membranes are moist NECK EXAM: No thyromegaly or lymphadenopathy RESPIRATORY EXAM: Bilateral breath sounds are clear. No crackles or rhonchi. CARDIOVASCULAR EXAM: S1 and S2 heard no additional sounds GI/ABDOMINAL EXAM: Soft, normal bowel sounds. PEG tube in place no signs of active infection. Bowel sounds are positive. EXTREMITIES EXAM: Bilateral lower extremity contractures. Stein's catheter in place. BACK EXAM: Stage II sacral decubitus ulcer with good granulation tissue seen. No active infection NEUROLOGICAL EXAM: Awake, bilateral lower extremity contractures. Left upper extremity is flaccid, strength is 1 out of 5. Right upper extremity strength is 3 out of 5. PSYCHIATRIC EXAM: Cannot be assessed - Labs CBC & Chem 7: 04/08/18 08:12 04/08/18 08:12 Labs: Abnormal Lab Results - Last 24 Hours (Table) 04/07/18 04/08/18 04/08/18 Range/Units 12:25 06:48 08:12 Hgb 12.7 L (13.0-17.5) gm/dL RDW 15.6 H (11.5-15.5) % Neutrophils # 8.3 H (1.3-7.7) k/uL BUN (9-20) mg/dL Glucose (74-99) mg/dL POC Glucose (mg/dL) 106 H 104 H (75-99) mg/dL AST (17-59) U/L Total Protein (6.3-8.2) g/dL Albumin (3.5-5.0) g/dL 04/08/18 04/08/18 Range/Units 08:12 11:37 Hgb (13.0-17.5) gm/dL RDW (11.5-15.5) % Neutrophils # (1.3-7.7) k/uL BUN 23 H (9-20) mg/dL Glucose 135 H (74-99) mg/dL POC Glucose (mg/dL) 132 H (75-99) mg/dL AST 16 L (17-59) U/L Total Protein 6.0 L (6.3-8.2) g/dL Albumin 3.3 L (3.5-5.0) g/dL Microbiology - Last 24 Hours (Table) 04/07/18 02:40 Blood Culture - Preliminary Blood No Growth after 24 hours 04/07/18 02:40 Urine Culture - Preliminary Urine,Catheterized Assessment and Plan Assessment: ASSESSMENT Encephalopathy - most likely due to infection - source being lung/Urine Questionable UTI Recent history of right sided pneumonia History of DVT on anticoagulation Hypovolemic hyponatremia Acute kidney [id number] Multiple sclerosis with contractures bedbound Stage II sacral decubitus ulcer Left upper extremity weakness Mild protein calorie malnutrition Chronic debility Plan: Patient has been empirically started on levofloxacin and Zosyn for questionable UTI which will be continued and also recent diagnosis of pneumonia. ID consult has been placed. As the patient had a fever last night blood cultures have been obtained. Urine culture is still pending. As the patient has left upper extremity weakness that is acute CAT scan of the head was obtained but inconclusive as the patient had motion artifact. Neurology consult was placed and they have been informed about these findings. Continue with anticoagulation for history of DVT- patient is on Coumadin at home has been changed to Lovenox for now. Resume all of his home medications and tube feeds. Overall prognosis is poor. Further recommendations to follow depending on the progress of the patient.
[2018-04-08] MEDS ORDERED: NON-FORMULARY DRUG (Jevity 1.5 Cal Liquid 1 CAN) PEG/G-TUBE SCH (14:00)
--- NOTE | 2018-04-08 14:18 | P.CONS ---
History of Present Illness - Reason for Consult Consult date: 04/08/18 Worsening left arm weakness, MS - Chief Complaint Worsened left arm weakness - History of Present Illness Is a 57-year-old male being evaluated by the neurology service for the above complaints. His a significant history of multiple sclerosis, chronic DVTs, bedbound with contractures, 2 feeds for nutrition, dysarthria and dysphagia. He was sent to the [facility] from his retirement for altered mental status. His baseline is nonverbal with altered mentation. He was having some coughing and difficulty breathing and started to run a fever. He has been started on antibiotics. We will consulted because his sister felt that his existing left arm weakness and mild contracture was worse. CT of the brain was done, and there was significant motion artifact. However there was no obvious midline shift, mass effect, or evidence of large intracranial hemorrhage. There was mild ventriculomegaly and confluent white matter hypodensities which were unchanged from his previous study. This would be consistent with his known history of multiple sclerosis. There was also area of CSF density in the lateral right posterior cranial fossa may be representing an arachnoid cyst or prior area of encephalomalacia from a distant infarct. His left arm symptoms have been waxing and waning. One exam showing fairly profound weakness. A repeat CT was performed. There were white matter changes consistent with known demyelinating disease. Extensive cortical atrophy. There was no change from his previous exam, but radiology indicates that it is difficult to exclude infarct. There was also some mention of possible left facial weakness. Was noticed once by the nursing staff, but not present on my examination today. Time my exam he is resting comfortably in bed in no acute distress. Review of Systems All systems: negative Constitutional: Reports as per HPI Past Medical History Past Medical History: Deep Vein Thrombosis (DVT), Musculoskeletal Disorder, Pneumonia, Renal Disease Additional Past Medical History / Comment(s): MSpt poor historian-cog impariment / Impaired speech, NPO-peg tube,DVT-arm, , IDC ,INCONT OF BOWEL. IDC-UTI'S/ SEPSIS ,HX SACRALWOUND,CONTRACTURES,DYSARTHRIA/ANARTHRIA/DYSPHAGIA. BEDBOUND, RACHEL LIFT TO W/C. History of Any Multi-Drug Resistant Organisms: MRSA Year Discovered:: 10/21/17 MDRO Source:: URINE Additional Past Surgical History / Comment(s): PEG TUBE, HX OF GASTROSTOMY, PICC LINE 08/07/17 .REMOVED. NEW PICC LINE PLACED 12-28-16 (RT) Past Anesthesia/Blood Transfusion Reactions: Unable to Obtain Past Psychological History: Depression Additional Psychological History / Comment(s): PT RESIDES AT [facility] [phone] Smoking Status: Never smoker Past Alcohol Use History: None Reported Past Drug Use History: None Reported - Past Family History Father Family Medical History: Unable to Obtain Mother Family Medical History: Unable to Obtain Medications and Allergies Home Medications Medication Instructions Recorded Confirmed Type Ferrous Sulfate Oral Elixir 300 mg PEG/G-TUBE DAILY 08/07/17 04/07/18 History [Feosol Liquid] Gabapentin 250mg/5ml 500 mg PEG/G-TUBE Q6H 08/07/17 04/07/18 History Ipratropium-Albuterol Nebulize 3 ml INHALATION RT-Q4H PRN 08/07/17 04/07/18 History [Duoneb 0.5 mg-3 mg/3 ml Soln] Jevity 1.5 Sherman Liquid 2 can PEG/G-TUBE BID@,08/07/17 04/07/18 History Magnesium Oxide [Magox 400] 400 mg PEG/G-TUBE DAILY 08/07/17 04/07/18 History Metoprolol Tartrate [Lopressor] 25 mg PEG/G-TUBE Q12H 08/07/17 04/07/18 History HYDROcodone/APAP 7.5-325MG [Browning 1 tab PEG/G-TUBE Q4H PRN #20 tab 08/14/1705/18 Rx 7.5-325] Amantadine 50mg/5ml 100 mg PEG/G-TUBE Q12H 12/28/17 04/07/18 History Ascorbic Acid [Vitamin C] 250 mg PEG/G-TUBE DAILY 12/28/17 04/07/18 History Cholecalciferol [Vitamin D3] 1,000 unit PEG/G-TUBE DAILY 12/28/17 04/07/18 History Docusate Oral Soln [Colace Oral 100 mg PEG/G-TUBE BID 12/28/17 04/07/18 History Soln] Scopolamine 1.5MG/72Hr Patch 1 patch TRANSDERM Q72H 12/28/17 04/07/18 History [TransDerm Scop] Sodium Chloride [Susan Moore] 1 spray EA NOSTRIL Q4H PRN 12/28/17 04/07/18 History Warfarin [Coumadin] 2.5 mg PEG/G-TUBE DAILY 12/28/17 04/07/18 History guaiFENesin [guaiFENesin Oral 200 mg PEG/G-TUBE Q6H 12/28/17 04/07/18 History Solution] Acetaminophen 500mg/15ml 500 mg PEG/G-TUBE Q6H PRN 02/15/18 04/07/18 History Amino Acids/Protein Hydrolys 30 ml PEG/G-TUBE DAILY 02/15/18 04/07/18 History [Pro-Stat Supplement] Jevity 1.5 Sherman Liquid 1 can PEG/G-TUBE DAILY@1400 02/15/18 04/07/18 History Multivitamins, Thera [Multivitamin 1 tab PO DAILY 02/15/18 04/07/18 History (formulary)] OXcarbazepine 300MG/5ML SUSP 300 mg PEG/G-TUBE Q12H 02/15/18 04/07/18 History [Trileptal Liquid] Baclofen 5 mg PEG/G-TUBE TID 04/07/18 04/07/18 History Ciprofloxacin HCl [Cipro] 500 mg PEG/G-TUBE Q12HR 04/07/18 04/07/18 History Nexium 20mg Packet 20 mg PEG/G-TUBE DAILY 04/07/18 04/07/18 History Allergies Allergy/AdvReac Type Severity Reaction Status Date / Time meropenem [From Merrem] Allergy Rash/Hives Verified 04/07/18 11:46 Physical Exam Vitals: Vital Signs Temp Pulse Pulse Pulse Pulse Resp BP 04/08/18 08:44 99.2 F 100 24 109/65 04/08/18 06:06 99.3 F 105 H 17 112/68 04/08/18 06:00 101.6 F H 04/07/18 23:00 96.7 F L 106 H 18 105/72 04/07/18 19:15 104 H 16 119/76 04/07/18 19:13 100 04/07/18 18:55 102 H 04/07/18 18:07 04/07/18 16:21 04/07/18 16:15 04/07/18 15:00 106 H 04/07/18 14:51 97.1 F L 118 H 20 149/76 Pulse Ox 04/08/18 08:44 97 04/08/18 06:06 98 04/08/18 06:00 04/07/18 23:00 98 04/07/18 19:15 97 04/07/18 19:13 04/07/18 18:55 98 04/07/18 18:07 96 04/07/18 16:21 96 04/07/18 16:15 88 L 04/07/18 15:00 04/07/18 14:51 95 Intake and Output 04/07/18 04/08/18 04/08/18 22:59 06:59 14:59 Intake Total 480 Output Total 500 500 Balance -500 -500 480 Intake: Oral 480 Output: Urine 500 500 Other: Voiding Method Indwelling Catheter Indwelling Catheter # Voids 0 0 # Bowel Movements 0 Weight 68 kg - Constitutional General appearance: cooperative, no acute distress - EENT Eyes: no abnormal pupil, EOMI, PERRLA, no ptosis ENT: hearing grossly normal - Neck Neck: normal ROM, no rigidity - Respiratory Respiratory: negative: prolonged expiration, prolonged inspiration - Cardiovascular Rhythm: regular - Gastrointestinal General gastrointestinal: no distended, no tenderness - Neurologic The patient is awake and nonverbal. He follows commands well. No facial asymmetry is seen. He has bilateral lower extremity contractures. Strength is 5- in right upper extremity and 4+ in the left upper extremity. He says he can feel light touch in all 4 extremities when tested. No tremors or seizure- like activities are seen. Results CBC & Chem 7: 04/08/18 08:12 04/08/18 08:12 Labs: Abnormal Lab Results - Last 24 Hours (Table) 04/08/18 04/08/18 04/08/18 Range/Units 06:48 08:12 08:12 Hgb 12.7 L (13.0-17.5) gm/dL RDW 15.6 H (11.5-15.5) % Neutrophils # 8.3 H (1.3-7.7) k/uL BUN 23 H (9-20) mg/dL Glucose 135 H (74-99) mg/dL POC Glucose (mg/dL) 104 H (75-99) mg/dL AST 16 L (17-59) U/L Total Protein 6.0 L (6.3-8.2) g/dL Albumin 3.3 L (3.5-5.0) g/dL 04/08/18 Range/Units 11:37 Hgb (13.0-17.5) gm/dL RDW (11.5-15.5) % Neutrophils # (1.3-7.7) k/uL BUN (9-20) mg/dL Glucose (74-99) mg/dL POC Glucose (mg/dL) 132 H (75-99) mg/dL AST (17-59) U/L Total Protein (6.3-8.2) g/dL Albumin (3.5-5.0) g/dL Microbiology - Last 24 Hours (Table) 04/07/18 02:40 Urine Culture - Preliminary Urine,Catheterized Gram Neg Bacilli 04/07/18 02:40 Blood Culture - Preliminary Blood No Growth after 24 hours Assessment and Plan (1) Left arm weakness Current Visit: Yes Status: Chronic Code(s): R29.898 - OTH SYMPTOMS AND SIGNS INVOLVING THE MUSCULOSKELETAL SYSTEM SNOMED Code(s): 430149140 (2) Altered mental status Current Visit: Yes Status: Chronic Code(s): R41.82 - ALTERED MENTAL STATUS, UNSPECIFIED SNOMED Code(s): 351559204 (3) Fever Current Visit: Yes Status: Acute Code(s): R50.9 - FEVER, UNSPECIFIED SNOMED Code(s): 668104284 (4) UTI (urinary tract infection) Current Visit: Yes Status: Acute Code(s): N39.0 - URINARY TRACT INFECTION, SITE NOT SPECIFIED SNOMED Code(s): 33331434 (5) Multiple sclerosis, primary progressive Current Visit: No Status: Chronic Code(s): G35 - MULTIPLE SCLEROSIS SNOMED Code(s): 574305884 Plan: This patient with a history of significant medical debility is having some neurological symptoms that are waxing and waning of the left face and the left upper extremity. 2 CTs of the brain were done but an acute infarct could not be definitively ruled out due to motion artifact. Given his significant history of MS , his neurological findings are likely a sequela of this. However , cerebrovascular etiology cannot be completely ruled out. Recommend continuing neurological checks and if any focal neurological deficits persist I would update an MRI of the brain. He would likely need sedation for this. He is chronically on Coumadin for DVT prophylaxis and he is on Lovenox right now. He may be somewhat encephalopathic from infection, but I do not know his baseline. I will order an EEG for this reason. As above please contact us for any new focal neurological symptoms, otherwise barring any unforeseen abnormalities on his EEG he would be cleared from a neurological standpoint. I have performed a history and physical on the above patient. I have reviewed the above note, and agree.
--- NOTE | 2018-04-08 17:27 | CONS ---
CONSULTATION DATE OF SERVICE: 04/08/2018. REASON FOR CONSULTATION: Fever and urinary tract infection. HISTORY OF PRESENT ILLNESS: The patient is a 57-year-old male with a past medical history significant for multiple sclerosis. 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 The patient did have multiple admissions to the hospital for a urinary tract infection secondary to his catheter. Last admission was back in 12/28/2017. At that time the patient urine did grow enterococcus faecalis that was penicillin sensitive and treated with IV antibiotic therapy with subsequent discharge on the oral antibiotic. Prior to that the patient also had grown Pseudomonas aeruginosa. The patient has been [facility] the [facility] with concern for evaluation of possible sepsis. Apparently the patient noticed to have a mental status changes and fever and symptoms apparently have been going on for a few days prior to presentation to the hospital with no clear history of any nausea or vomiting. The patient was evaluated by the ER physician. The patient did have a chest x-ray, which did show no active cardiopulmonary disease. The patient who was afebrile on presentation subsequently did spike a fever of 101 degrees Fahrenheit this morning. The patient did have a white count of 12,000. His urine was significantly positive with positive blood, large leukocyte esterase with more than 1-2 WBC. Cultures currently showing a gram-negative bacilli. The patient has been treated with Levofloxacin and Zosyn. Infectious Disease was consulted for further recommendation antibiotic therapy. Most of the information has been obtained from prior review of the chart and talking to nursing staff. The patient is currently unable to provide reliable history because of underlying mental status. The positive points as mentioned in HPI. REVIEW OF SYSTEMS: Could not be reliably obtained with the positive points as mentioned in HPI. PAST MEDICAL HISTORY: Significant for multiple sclerosis but bed-bound state. The patient did have a history of recurrent UTIs catheter associated, stage III sacral wound, cognitive impairment and DVT. PAST SURGICAL HISTORY: PEG tube placement and subsequent removal. SOCIAL HISTORY: He is currently a resident of [facility]. No history of smoking, drinking, or drug use. FAMILY HISTORY: No pertinent findings noticed in the chart. ALLERGIES: To MEROPENEM. However, the patient tolerated cephalosporin and penicillin without any problem. MEDICATION: Include the patient currently on Zosyn, scopolamine patch, Protonix, Theragran, Lopressor, Mag oxide, Levaquin, Neurontin, iron sulfate, Lovenox, baclofen, vitamin C, DuoNeb and Tylenol. EXAMINATION: Blood pressure is 117/73 with a pulse of 75. Temperature 98.2. He is 99% on 3 L nasal cannula. General description is a middle-aged male lying in bed in no distress. No tachypnea or accessory muscle of respiration use. HEENT: Shows no pallor or scleral icterus. Oral mucosa is dry. No mucous membrane dry. No pharyngeal erythema. NECK: Trachea central. No thyromegaly. LUNGS: Unlabored breathing. Clear to auscultation anteriorly. No wheeze or crackle. HEART: S1, S2. Regular rate and rhythm. ABDOMEN: Soft, no tenderness. No guarding or rigidity. EXTREMITIES: No edema feet. Examination of the sacral area: The patient did have stage III wound, however, minimal ulceration, but no slough tissue or surrounding erythema. NEUROLOGICAL: Patient is awake, however, orientation could not be determined as patient currently not verbal. LABS: Hemoglobin is 12.5, white count 10.3, admission white count was [address] with a BUN of 23, creatinine 1.14. Electrolytes has been normal. Urine cultures currently pending. DIAGNOSTIC IMPRESSION AND PLAN: 1. Patient admitted to the hospital with mental status changes. The patient did have a fever, did have elevated white count with possible component of sepsis, source likely urinary with a previous culture positive for Pseudomonas and also Enterococcus. 2. Patient does have stage III sacral wound but no evidence of any cellulitis. PLAN: 1. Change his Stein catheter. Obtain urine culture from new Stein. 2. Keep the patient on Zosyn 3.375 g q.6h. Discontinue Levaquin. 3. Aquacel silver packing of his sacral wound and keep the area off the pressure. 4. We will follow up on the clinical condition and culture to further adjust medication if needed. Thank you for this consultation. Will follow this patient along with you. MMODL / IJN: [id number] /
[2018-04-08 17:51] LABS: Glucose,Whole Blood 108 mg/dL (75-99)
[2018-04-08 20:40] LABS: Appearance,Urine Cloudy (Clear); Bacteria,Urine Rare /hpf; Bilirubin,Urine Negative (Negative); Blood,Urine Small (Negative); Budding Yeast,Urine Occasional /hpf; Color,Urine Yellow; Glucose,Urine (UA) Negative (Negative); Ketones,Urine Negative (Negative); Leukocyte Esterase,Urine Large (Negative); Nitrite,Urine Negative (Negative); PH, Urine 7.5 (5.0-8.0); Protein,Urine Trace (Negative); RBC,Urine 11 /hpf (0-5); Specific Gravity,Urine 1.014 (1.001-1.035); Urobilinogen,Urine <2.0 mg/dL (<2.0); WBC,Urine 67 /hpf (0-5)
[2018-04-08] MEDS: ENOXAPARIN 80 MG/0.8 ML SYRINGE SQ SCH (21:57)
[2018-04-09 01:13] LABS: Glucose,Whole Blood 97 mg/dL (75-99)
[2018-04-09] MEDS: PIPERACILLIN-TAZOBACTAM 3.375 GM in DEXTROSE/WATER 1 50ML.BAG IVPB SCH ×3 (04:53→21:02)
[2018-04-09] MEDS: AMANTADINE HCL PEG/G-TUBE SCH ×2 (04:55→17:51)
[2018-04-09] MEDS: METOPROLOL TARTRATE 25 MG TAB PEG/G-TUBE SCH ×2 (04:58→17:51)
[2018-04-09] MEDS: GABAPENTIN 400 MG CAP PEG/G-TUBE SCH ×4 (04:58→21:03)
[2018-04-09] MEDS: GABAPENTIN 100 MG CAP PEG/G-TUBE SCH ×4 (04:58→21:03)
[2018-04-09] MEDS: OXcarbazepine 300MG/5ML SUSP 15,000 MG/250 ML BOTTLE PEG/G-TUBE SCH ×2 (04:59→17:51)
[2018-04-09 06:14] LABS: Glucose,Whole Blood 116 mg/dL (75-99)
[2018-04-09] MEDS: DOCUSATE ORAL SOLN 100 MG/10 ML CUP PEG/G-TUBE SCH ×2 (08:26→21:02)
[2018-04-09] MEDS: ENOXAPARIN 80 MG/0.8 ML SYRINGE SQ SCH ×2 (08:26→21:02)
[2018-04-09] MEDS: PANTOPRAZOLE SODIUM 40 MG GRANULE PKT PEG/G-TUBE SCH (08:26)
[2018-04-09] MEDS: MAGNESIUM OXIDE 400 MG TAB PEG/G-TUBE SCH (08:26)
[2018-04-09] MEDS: FERROUS SULFATE ORAL ELIXIR 300 MG/5 ML CUP PEG/G-TUBE SCH (08:26)
[2018-04-09] MEDS: MULTIVITAMINS, THERA 1 EACH TAB PO SCH (08:27)
[2018-04-09] MEDS: BACLOFEN 10 MG TAB PEG/G-TUBE SCH ×3 (08:27→21:03)
[2018-04-09] MEDS: ASCORBIC ACID 500 MG TAB PEG/G-TUBE SCH (08:27)
[2018-04-09] MEDS: CHOLECALCIFEROL 1,000 UNIT TAB PEG/G-TUBE SCH (08:27)
--- NOTE | 2018-04-09 10:05 | CDI ---
Last Revision, August 2017 Documentation Clarification Form Date: 04/09/2018 12:00:00 AM From: Ayanna Pedraza RN, CCDS Admit Date: 04/07/2018 4:19:00 AM Patient Name: Chris Marvin Visit Number: [id number] Discharge Date: ATTENTION: The Clinical Documentation Specialists (CDI) and [facility] Coding Staff appreciate your assistance in clarifying documentation. Please respond to the clarification below the line at the bottom and electronically sign. The CDI & [facility] Coding staff will review the response and follow-up if needed. Please note: Queries are made part of the Legal Health Record. If you have any questions, please contact the author of this message via ITS. Dr. Dory Mares/Dr. Gramajo Sheet Chronic indwelling Aggarwal catheter was documented in the ED, your H&P and ID consultation 04/10/18 ID: Fever source is catheter-associated UTI 04/08/18 ID () The patient is bed-bound, did have urinary retention requiring chronic indwelling Aggarwal catheter. The patient did have multiple admission for UTI secondary to his catheter. The patient did have fever, did have elevated white couth with possible component of sepsis, source likely urinary with a previous culture positive for Psuedomonas and also Enterococccus. History/Risk Factors: Chronic indwelling Aggarwal, multiple sclerosis, Peg tube, Clinical Indicators: patient was sent from [facility] for evaluation of altered mental status, fever, possible sepsis, possible pneumonia. Vital Signs: 126/77 86 22 98.2 WBC: 12.0 UTI showing large Leukocyte esterase, Urine culture: Proteus mirabillis, Gram Neg Bacilli BUN 37, 1.40 Treatment Antibiotics: Levofloxacin IV, Zosyn IV Neuiro checks per protocol Monitor Labs Please document the condition that these clinical indicators signify, whether Present on Admission, and cause if known: UTI With Sepsis If due to Aggarwal catheter Specify organism, if known Identify location of infection (if known) Bladder, Kidney, Urethra Contaminated specimen Other, please specify Unable to determine Present on Admission: Yes No Please continue to document in your progress notes and discharge summary in order to capture severity of illness and risk of mortality. Include clinical findings that support your diagnosis. _his infection is related to aggarwal catheter , with sepsis (fefver , leukocytosis , tachycardia ) , not sure the exact place of infection of UTI , UTI was present on admission MTDD
[2018-04-09 10:17] LABS: Basophils % (A) 1 %; Eosinophils # (A) 0.4 k/uL (0-0.7); Eosinophils % (A) 6 %; HCT 39.8 % (39.0-53.0); HGB 12.8 gm/dL (13.0-17.5); Lymphocytes # (A) 1.1 k/uL (1.0-4.8); Lymphocytes % (A) 17 %; MCH 28.9 pg (25.0-35.0); MCHC 32.2 g/dL (31.0-37.0); MCV 89.6 fL (80.0-100.0); Mean Platelet Volume 7.3; Monocytes # (A) 0.6 k/uL (0-1.0); Monocytes % (A) 9 %; Neutrophils # (A) 4.2 k/uL (1.3-7.7); Neutrophils % (A) 64 %; Platelet Count 288 k/uL (150-450); RBC 4.45 m/uL (4.30-5.90); RDW 15.4 % (11.5-15.5); WBC 6.6 k/uL (3.8-10.6)
[2018-04-09 10:56] LABS: Anion Gap 12 mmol/L; Blood Urea Nitrogen 17 mg/dL (9-20); Carbon Dioxide 25 mmol/L (22-30); Chloride 103 mmol/L (98-107); Glucose 104 mg/dL (74-99); Potassium 4.5 mmol/L (3.5-5.1); Sodium 140 mmol/L (137-145)
[2018-04-09 12:19] LABS: Glucose,Whole Blood 109 mg/dL (75-99)
--- NOTE | 2018-04-09 13:01 | P.PN ---
Subjective 04/09/2018 Patient lying in bed does not seem in distress. He has weakness of the left side. But he looks alert and awake. He can shake his head as he is on no. When asking the patient has any pain he shake his head as not Patient had fever yesterday at 101.6. Leukocytosis of 12 K resolve to 6.6K. His urine culture is positive for Proteus mirabilis which is sensitive to several cephalosporins, CT of the brain showing no hemorrhage or hydrocephalus but with extensive cortical atrophy. EEG is pending ID team evaluated the patient and recommended to change the Stein and continue with Zosyn for now Objective - Vital Signs Vital signs: Vital Signs Temp 97.4 F L 04/09/18 06:02 Pulse 88 04/09/18 06:02 Resp 16 04/09/18 06:02 BP 126/80 04/09/18 06:02 Pulse Ox 98 04/09/18 06:02 Intake & Output 04/08/18 04/09/18 04/09/18 18:59 06:59 18:59 Intake Total 480 Output Total 550 900 Balance -70 -900 Weight 68 kg 67 kg Intake: Oral 480 Output: Urine 550 900 Other: Voiding Method Indwelling Catheter Indwelling Catheter Indwelling Catheter - Exam GENERAL: The patient is alert and oriented x3, not in any acute distress. Well developed, well nourished. HEENT: Pupils are round and equally reacting to light. EOMI. No scleral icterus. No conjunctival pallor. Normocephalic, atraumatic. No pharyngeal erythema. No thyromegaly. CARDIOVASCULAR: S1 and S2 present. No murmurs, rubs, or gallops. PULMONARY: Chest is clear to auscultation, no wheezing or crackles. ABDOMEN: Soft, nontender, nondistended, normoactive bowel sounds. No palpable organomegaly. MUSCULOSKELETAL: No joint swelling or deformity. EXTREMITIES: No cyanosis, clubbing, or pedal edema. NEUROLOGICAL: Cranial nerves are grossly intact. Left side week, he slightly moving his left upper extremity and By the body side most of the time SKIN: No rashes. - Labs CBC & Chem 7: 04/09/18 09:47 04/09/18 09:47 Labs: Abnormal Lab Results - Last 24 Hours (Table) 04/08/18 04/08/18 04/09/18 Range/Units 17:50 18:00 06:12 Hgb (13.0-17.5) gm/dL Glucose (74-99) mg/dL POC Glucose (mg/dL) 108 H 116 H (75-99) mg/dL Urine Protein Trace H (Negative) Urine Blood Small H (Negative) Ur Leukocyte Esterase Large H (Negative) Urine RBC 11 H (0-5) /hpf Urine WBC 67 H (0-5) /hpf Urine Bacteria Rare H (None) /hpf Urine Yeast (Budding) Occasional H (None) /hpf 04/09/18 04/09/18 04/09/18 Range/Units 09:47 09:47 12:08 Hgb 12.8 L (13.0-17.5) gm/dL Glucose 104 H (74-99) mg/dL POC Glucose (mg/dL) 109 H (75-99) mg/dL Urine Protein (Negative) Urine Blood (Negative) Ur Leukocyte Esterase (Negative) Urine RBC (0-5) /hpf Urine WBC (0-5) /hpf Urine Bacteria (None) /hpf Urine Yeast (Budding) (None) /hpf Microbiology - Last 24 Hours (Table) 04/08/18 08:12 Blood Culture - Preliminary Blood No Growth after 24 hours 04/07/18 02:40 Urine Culture - Preliminary Urine,Catheterized Proteus mirabilis Gram Neg Bacilli 04/07/18 02:40 Blood Culture - Preliminary Blood No Growth after 48 hours 04/08/18 18:00 Urine Culture - Preliminary Urine,Catheterized Assessment and Plan Plan: -UTI, patient on Zosyn. ID consult is appreciated. Urine culture is positive for Proteus sensitive to many cephalosporins - History of MS with elements of altered mental status, CT of the brain showing extensive brain atrophy , no evidence of her brain infarcts. Continue the neuro check. Patient at baseline he can communicate as yes or no by shaking his head. Neurology consult is appreciated. EKG: Pending, Continue with the Neurontin and baclofen -AMS most likely Metabolic encephalopathy as above -History of dysphagia, patient is getting food through PEG -Hypertension continue with Lopressor -Chronic DVT, on Coumadin and Lovenox. INR from 04/07/2018 was 2.3. Recheck INR DVT prophylaxis on Lovenox and Coumadin GI prophylaxis on Protonix [facility] Prognosis is guarded
[2018-04-09 13:48] LABS: INR 1.3 (<1.2); Prothrombin Time 12.5 sec (9.0-12.0)
[2018-04-09 18:54] LABS: Glucose,Whole Blood 100 mg/dL (75-99)
--- NOTE | 2018-04-10 01:16 | PN ---
PROGRESS NOTE DATE OF SERVICE: 04/09/2018 REASON FOR FOLLOWUP: Catheter-associated urinary tract infection. INTERVAL HISTORY: The patient is afebrile. He seems to be more awake and alert. He is breathing comfortably. He is nonverbal; unable to provide any history. No nausea, vomiting. diarrhea has been reported. PHYSICAL EXAMINATION: Blood pressure 135/77 with a pulse of 92, temperature 97. He is 94% on 2 L nasal cannula. General description is a middle-aged male lying in bed in no distress. RESPIRATORY SYSTEM: Unlabored breathing. Clear to auscultation anteriorly. HEART: S1, S2. Regular rate and rhythm. ABDOMEN: Soft. No tenderness. LABS: Hemoglobin , white count 6.6 with a BUN of 17, creatinine 1.01. Urine showing a Proteus mirabilis and gram-negative bacilli. DIAGNOSTIC IMPRESSION AND PLAN: 1. Patient admitted to hospital with a fever. Source is a catheter-associated urinary tract infection. Urine culture shows a Proteus mirabilis. The sensitivity on the other gram-negative is currently pending. Will keep the patient on Zosyn while waiting for the culture to finalize. 2. Patient with a stage III sacral wound. Local wound care with Aquacel Silver dressing. Keep the area off pressure. MMODL / IJN: [id number] /
[2018-04-10 03:54] LABS: Glucose,Whole Blood 159 mg/dL (75-99)
[2018-04-10] MEDS ORDERED: GABAPENTIN 100 MG CAP ONE (04:30)
[2018-04-10] MEDS ORDERED: GABAPENTIN 400 MG CAP ONE (04:30)
[2018-04-10] MEDS ORDERED: AMANTADINE HCL ONE (04:30)
[2018-04-10] MEDS ORDERED: METOPROLOL TARTRATE 25 MG TAB ONE (04:30)
[2018-04-10] MEDS: AMANTADINE HCL PEG/G-TUBE SCH ×2 (05:33→17:52)
[2018-04-10] MEDS: GABAPENTIN 100 MG CAP PEG/G-TUBE SCH ×4 (05:33→22:48)
[2018-04-10] MEDS: OXcarbazepine 300MG/5ML SUSP 15,000 MG/250 ML BOTTLE PEG/G-TUBE SCH ×2 (05:33→17:48)
[2018-04-10] MEDS: METOPROLOL TARTRATE 25 MG TAB PEG/G-TUBE SCH ×2 (05:33→17:52)
[2018-04-10] MEDS: PIPERACILLIN-TAZOBACTAM 3.375 GM in DEXTROSE/WATER 1 50ML.BAG IVPB SCH ×3 (05:33→22:45)
[2018-04-10] MEDS: GABAPENTIN 400 MG CAP PEG/G-TUBE SCH ×4 (05:33→22:47)
[2018-04-10 06:23] LABS: Glucose,Whole Blood 136 mg/dL (75-99)
[2018-04-10] MEDS: ACETAMINOPHEN TAB 325 MG TAB PO PRN ×2 (06:43→22:48)
[2018-04-10 08:23] LABS: INR 1.4 (<1.2); Prothrombin Time 13.1 sec (9.0-12.0)
[2018-04-10 08:26] LABS: Anion Gap 12 mmol/L; Blood Urea Nitrogen 18 mg/dL (9-20); Calcium 8.7 mg/dL (8.4-10.2); Carbon Dioxide 23 mmol/L (22-30); Chloride 106 mmol/L (98-107); Glucose 108 mg/dL (74-99); Potassium 4.3 mmol/L (3.5-5.1); Sodium 141 mmol/L (137-145)
[2018-04-10] MEDS: BACLOFEN 10 MG TAB PEG/G-TUBE SCH ×3 (08:54→22:47)
[2018-04-10] MEDS: DOCUSATE ORAL SOLN 100 MG/10 ML CUP PEG/G-TUBE SCH ×2 (08:54→22:47)
[2018-04-10] MEDS: ENOXAPARIN 80 MG/0.8 ML SYRINGE SQ SCH ×2 (08:54→22:47)
[2018-04-10] MEDS: FERROUS SULFATE ORAL ELIXIR 300 MG/5 ML CUP PEG/G-TUBE SCH (08:54)
[2018-04-10] MEDS: MAGNESIUM OXIDE 400 MG TAB PEG/G-TUBE SCH (08:54)
[2018-04-10] MEDS: PANTOPRAZOLE SODIUM 40 MG GRANULE PKT PEG/G-TUBE SCH (08:54)
[2018-04-10] MEDS: MULTIVITAMINS, THERA 1 EACH TAB PO SCH (08:54)
[2018-04-10] MEDS: ASCORBIC ACID 500 MG TAB PEG/G-TUBE SCH (08:54)
[2018-04-10] MEDS: CHOLECALCIFEROL 1,000 UNIT TAB PEG/G-TUBE SCH (08:55)
[2018-04-10] MEDS: IPRATROPIUM-ALBUTEROL 3 ML NEB INHALATION PRN (11:04)
[2018-04-10 12:05] LABS: Glucose,Whole Blood 129 mg/dL (75-99)
--- NOTE | 2018-04-10 16:05 | P.PN ---
Subjective History of present illness Mr. Marvin is a 57-year-old male with a past medical history of multiple sclerosis, DVT, bed bound with contractures, dependence on tube feeds for nutrition, dysarthria and dysphagia sent in from his skilled nursing for altered mental status changes. Patient is nonverbal and confused at baseline. Most of the history is taken from the sister who is at the bedside. Sister mentions that patient was having cough and difficulty in breathing and so had a chest x-ray done which was positive for right lower lobe pneumonia and so he has been started on ciprofloxacin. She visited him on and he was at his baseline. She mentions that at baseline he understands few things and can follow simple commands that he is not able to do currently. And on examination patient has contact his of both her lower extremities. And he is weak in the left upper extremity. Sr. states that he will be able to move both his hands when they move him around in the bed. This is something new for him. Patient has a Stein's catheter in place chronically. He has a PEG tube in place for nutrition. He cannot eat or drink anything by mouth. Patient has a history of sacral decubitus ulcers in the past that is healing now. 04/09/2018 Patient lying in bed does not seem in distress. He has weakness of the left side. But he looks alert and awake. He can shake his head as he is on no. When asking the patient has any pain he shake his head as not Patient had fever yesterday at 101.6. Leukocytosis of 12 K resolve to 6.6K. His urine culture is positive for Proteus mirabilis which is sensitive to several cephalosporins, CT of the brain showing no hemorrhage or hydrocephalus but with extensive cortical atrophy. EEG is pending ID team evaluated the patient and recommended to change the Stein and continue with Zosyn for now 04/10/2018 Patient is a spiking fever. He is more lethargic today. We'll send blood culture. Patient's urine cultures came back positive for Proteus and Pseudomonas both are susceptible to Zosyn and other antibiotics. Renal ultrasound was ordered and is pending Objective - Vital Signs Vital signs: Vital Signs Temp 100.5 F H 04/10/18 15:00 Pulse 107 H 04/10/18 15:00 Resp 20 04/10/18 15:00 BP 158/82 04/10/18 15:00 Pulse Ox 96 04/10/18 15:00 Intake & Output 04/09/18 04/10/18 04/10/18 18:59 06:59 18:59 Output Total 600 900 Balance -600 -900 Weight 67 kg 68.5 kg Output: Urine 600 900 Other: Voiding Method Indwelling Catheter Indwelling Catheter Indwelling Catheter # Voids 1 - Exam GENERAL: The patient is alert and oriented x3, not in any acute distress. Well developed, well nourished. HEENT: Pupils are round and equally reacting to light. EOMI. No scleral icterus. No conjunctival pallor. Normocephalic, atraumatic. No pharyngeal erythema. No thyromegaly. CARDIOVASCULAR: S1 and S2 present. No murmurs, rubs, or gallops. PULMONARY: Chest is clear to auscultation, no wheezing or crackles. -ABDOMEN: Soft, nontender, nondistended, normoactive bowel sounds. No palpable organomegaly. Stein catheter in place with clear urine MUSCULOSKELETAL: No joint swelling or deformity. EXTREMITIES: No cyanosis, clubbing, or pedal edema. -NEUROLOGICAL: Cranial nerves are grossly intact. Left side week, he slightly moving his left upper extremity and By the body side most of the time SKIN: No rashes. - Labs CBC & Chem 7: 04/09/18 09:47 04/10/18 07:49 Labs: Abnormal Lab Results - Last 24 Hours (Table) 04/09/18 04/10/18 04/10/18 Range/Units 18:53 03:52 06:16 PT (9.0-12.0) sec INR (<1.2) Glucose (74-99) mg/dL POC Glucose (mg/dL) 100 H 159 H 136 H (75-99) mg/dL 04/10/18 04/10/18 04/10/18 Range/Units 07:49 07:49 12:03 PT 13.1 H (9.0-12.0) sec INR 1.4 H (<1.2) Glucose 108 H (74-99) mg/dL POC Glucose (mg/dL) 129 H (75-99) mg/dL Microbiology - Last 24 Hours (Table) 04/07/18 02:40 Urine Culture - Final Urine,Catheterized Proteus mirabilis Pseudomonas aeruginosa 04/08/18 08:12 Blood Culture - Preliminary Blood No Growth after 48 hours 04/07/18 02:40 Blood Culture - Preliminary Blood No Growth after 72 hours 04/08/18 18:00 Urine Culture - Final Urine,Catheterized Assessment and Plan Plan: -UTI, patient on Zosyn. ID consult is appreciated. Urine culture is positive for Proteus and Pseudomonas sensitive to many cephalosporins. Patient still spiking fever. We'll do renal ultrasound: Pending - History of MS with elements of altered mental status, CT of the brain showing extensive brain atrophy , no evidence of her brain infarcts. Continue the neuro check. Patient at baseline he can communicate as yes or no by shaking his head. Neurology consult is appreciated. EEG: Pending, Continue with the Neurontin and baclofen -AMS most likely Metabolic encephalopathy as above -History of dysphagia, patient is getting food through PEG -Hypertension continue with Lopressor -Chronic DVT, on Coumadin and Lovenox. INR from 04/07/2018 was 2.3. Recheck INR DVT prophylaxis on Lovenox and Coumadin GI prophylaxis on Protonix Patient is going back to skilled nursing upon discharge Prognosis is guarded
--- NOTE | 2018-04-10 17:42 | XR ---
EXAMINATION TYPE: XR chest 1V portable DATE OF EXAM: 04/10/2018 COMPARISON: 04/07/2018 HISTORY: Altered mental status. Fever. TECHNIQUE: Single frontal view of the chest is obtained. FINDINGS: Heart size is normal. There is some mild infiltrate at the left lung base and slight blunt ing of left costophrenic angle. There is no heart failure. There is coarsening of interstitial pulmon marshall markings. IMPRESSION: New infiltrate and pleural reaction at the lateral left lung base compared to old exam. Mild pulmonary fibrosis. No heart failure. Old left-sided healed rib fractures.
[2018-04-10] MEDS: IBUPROFEN ORAL SUSP 100 MG/5 ML CUP PO PRN (17:53)
[2018-04-10] MEDS: SCOPOLAMINE 1.5MG/72HR PATCH TRANSDERM SCH (17:53)
[2018-04-10 18:28] LABS: Glucose,Whole Blood 144 mg/dL (75-99)
--- NOTE | 2018-04-10 18:36 | US ---
EXAMINATION TYPE: US kidneys/renal and bladder DATE OF EXAM: 04/10/2018 COMPARISON: CT CLINICAL HISTORY: fever; failed outpatient treatment for UTI; flaccid left arm; Stein catheter EXAM MEASUREMENTS: Right Kidney: 10.7 x 4.7 x 4.2 cm Left Kidney: 10.4 x 5.4 x 5.3 cm US exam is technically limited at patient's bedside as patient had to be repositioned RPO with staff assistance for surveying left kidney; also limited by rib shadowing. Right Kidney: No hydronephrosis or masses seen Left Kidney: No hydronephrosis or masses seen Bladder: Stein catheter in bladder There is no evidence for hydronephrosis at this point in time. No nephrolithiasis is seen. No magy s are identified. IMPRESSION: No evidence of renal mass or obstruction.
--- NOTE | 2018-04-10 23:35 | PN ---
PROGRESS NOTE DATE OF SERVICE: 04/10/2018 REASON FOR FOLLOW UP: Catheter-associated urinary tract infection. INTERVAL HISTORY: The patient did spike a fever yesterday morning and was doing okay yesterday; however, still having a fever this morning of 100.3-100.5. He seemed to have slight gastric upset after he was given meds through his PEG tube. The patient remains to have no nausea, vomiting has been recorded or any diarrhea per nursing staff. Unfortunately, the patient unable to provide any history. EXAMINATION: Blood pressure 158/82 with a pulse of 107, temperature 100.5. He is 96% on 3L nasal cannula. General description is a middle-aged male lying in bed in no distress. RESPIRATORY SYSTEM: Unlabored breathing with decreased breath sounds in the bases, no wheeze. HEART: S1, S2. Regular rate and rhythm. ABDOMEN: Soft. No tenderness. LABS: White count normal at 6.6 as of yesterday with BUN of 18, creatinine 0.96. Urine with both Proteus mirabilis and Pseudomonas aeruginosa. Chest x-ray with left lower lobe infiltrate. DIAGNOSTIC IMPRESSION AND PLAN: Patient was admitted hospital with fever, source is catheter-associated urinary tract infection. Patient's Stein has been changed. Urine culture showing Pseudomonas aeruginosa and Proteus and continues to have some low-grade fever, despite being on the Zosyn. Ultrasound was negative for any abnormality. Antibiotic will be adjusted to Fortaz 2 g q.8h and response to the same. Monitor his clinical course close to make sure the patient does not have any problem with aspiration. Continue supportive care. MMODL / IJN: [id number] /
[2018-04-11 02:22] LABS: Glucose,Whole Blood 148 mg/dL (75-99)
[2018-04-11] MEDS: OXcarbazepine 300MG/5ML SUSP 15,000 MG/250 ML BOTTLE PEG/G-TUBE SCH ×2 (06:09→15:31)
[2018-04-11] MEDS: AMANTADINE HCL PEG/G-TUBE SCH ×2 (06:10→15:30)
[2018-04-11] MEDS: METOPROLOL TARTRATE 25 MG TAB PEG/G-TUBE SCH ×2 (06:10→15:31)
[2018-04-11] MEDS: GABAPENTIN 400 MG CAP PEG/G-TUBE SCH ×4 (06:10→22:30)
[2018-04-11] MEDS: GABAPENTIN 100 MG CAP PEG/G-TUBE SCH ×4 (06:10→22:30)
[2018-04-11 06:30] LABS: Glucose,Whole Blood 158 mg/dL (75-99)
[2018-04-11] MEDS: IPRATROPIUM-ALBUTEROL 3 ML NEB INHALATION PRN ×2 (07:41→19:14)
[2018-04-11 09:02] LABS: Calcium 8.8 mg/dL (8.4-10.2); Potassium 4.2 mmol/L (3.5-5.1)
[2018-04-11] MEDS: FERROUS SULFATE ORAL ELIXIR 300 MG/5 ML CUP PEG/G-TUBE SCH (10:13)
[2018-04-11] MEDS: ENOXAPARIN 80 MG/0.8 ML SYRINGE SQ SCH ×2 (10:13→20:45)
[2018-04-11] MEDS: MAGNESIUM OXIDE 400 MG TAB PEG/G-TUBE SCH (10:14)
[2018-04-11] MEDS: PANTOPRAZOLE SODIUM 40 MG GRANULE PKT PEG/G-TUBE SCH (10:14)
[2018-04-11] MEDS: CHOLECALCIFEROL 1,000 UNIT TAB PEG/G-TUBE SCH (10:14)
[2018-04-11] MEDS: ASCORBIC ACID 500 MG TAB PEG/G-TUBE SCH (10:14)
[2018-04-11] MEDS: BACLOFEN 10 MG TAB PEG/G-TUBE SCH ×3 (10:14→22:30)
[2018-04-11] MEDS: DOCUSATE ORAL SOLN 100 MG/10 ML CUP PEG/G-TUBE SCH ×2 (10:15→20:44)
[2018-04-11] MEDS: MULTIVITAMINS, THERA 1 EACH TAB PO SCH (10:15)
[2018-04-11] MEDS: ACETAMINOPHEN TAB 325 MG TAB PO PRN ×2 (10:18→18:13)
[2018-04-11] MEDS: IBUPROFEN ORAL SUSP 100 MG/5 ML CUP PO PRN ×2 (11:07→23:26)
[2018-04-11 12:32] LABS: Glucose,Whole Blood 121 mg/dL (75-99)
--- NOTE | 2018-04-11 14:25 | XR ---
EXAMINATION TYPE: XR chest 1V DATE OF EXAM: 04/11/2018 CLINICAL HISTORY: Difficulty breathing and congestion. TECHNIQUE: Single AP portable upright view of the chest is obtained. COMPARISON: Chest x-ray from one day earlier and older studies FINDINGS: There is low lung volume and chronic parenchymal change with persistent patchy left basila r atelectasis and/or infiltrate. Right lung is clear. No pleural effusion or pneumothorax seen bilate rally. The cardiac silhouette size is stable and upper limits of normal. Osseous structures are demin eralized. There are old left lateral rib fractures redemonstrated. IMPRESSION: Overall stable findings, chronic parenchymal changes with persistent patchy left basila r atelectasis and/or infiltrate.
--- NOTE | 2018-04-11 14:52 | P.PN ---
Subjective History of present illness Mr. Marvin is a 57-year-old male with a past medical history of multiple sclerosis, DVT, bed bound with contractures, dependence on tube feeds for nutrition, dysarthria and dysphagia sent in from his [facility] for altered mental status changes. Patient is nonverbal and confused at baseline. Most of the history is taken from the sister who is at the bedside. Sister mentions that patient was having cough and difficulty in breathing and so had a chest x-ray done which was positive for right lower lobe pneumonia and so he has been started on ciprofloxacin. She visited him on and he was at his baseline. She mentions that at baseline he understands few things and can follow simple commands that he is not able to do currently. And on examination patient has contact his of both her lower extremities. And he is weak in the left upper extremity. Sr. states that he will be able to move both his hands when they move him around in the bed. This is something new for him. Patient has a Stein's catheter in place chronically. He has a PEG tube in place for nutrition. He cannot eat or drink anything by mouth. Patient has a history of sacral decubitus ulcers in the past that is healing now. 04/09/2018 Patient lying in bed does not seem in distress. He has weakness of the left side. But he looks alert and awake. He can shake his head as he is on no. When asking the patient has any pain he shake his head as not Patient had fever yesterday at 101.6. Leukocytosis of 12 K resolve to 6.6K. His urine culture is positive for Proteus mirabilis which is sensitive to several cephalosporins, CT of the brain showing no hemorrhage or hydrocephalus but with extensive cortical atrophy. EEG is pending ID team evaluated the patient and recommended to change the Stein and continue with Zosyn for now 04/10/2018 Patient is a spiking fever. He is more lethargic today. We'll send blood culture. Patient's urine cultures came back positive for Proteus and Pseudomonas both are susceptible to Zosyn and other antibiotics. Renal ultrasound: no hydronephrosis, CXR: LLL pna. pt is still on peg tube. we will call Dietitian consult for tube feeding evaluation as he is getting now food as boluses. we will keep HOB more than 30 degree. ID is following pt and changed Abx for ceftazidime. we will check for legionella ag in the urine. review of systems: not possible due to patient condition Objective - Vital Signs Vital signs: Vital Signs Temp 100.6 F H 04/11/18 11:06 Pulse 96 04/11/18 07:51 Resp 18 04/11/18 10:22 BP 138/72 04/11/18 07:00 Pulse Ox 96 04/11/18 07:00 Intake & Output 04/10/18 04/11/18 04/11/18 18:59 06:59 18:59 Output Total 900 Balance -900 Weight 68 kg 68 kg Output: Urine 900 Other: Voiding Method Indwelling Catheter Indwelling Catheter Indwelling Catheter # Bowel Movements 1 - Exam GENERAL: The patient is alert but more confused today , usually he shakes his head yes or no before but not today, not in any acute distress. Well developed, well nourished. HEENT: Pupils are round and equally reacting to light. EOMI. No scleral icterus. No conjunctival pallor. Normocephalic, atraumatic. No pharyngeal erythema. No thyromegaly. CARDIOVASCULAR: S1 and S2 present. No murmurs, rubs, or gallops. -PULMONARY: Chest is clear to auscultation, no wheezing . left basal crackles. -ABDOMEN: Soft, nontender, nondistended, normoactive bowel sounds. No palpable organomegaly. Stein catheter in place with clear urine MUSCULOSKELETAL: No joint swelling or deformity. EXTREMITIES: No cyanosis, clubbing, or pedal edema. -NEUROLOGICAL:pt is more confused today. Cranial nerves are grossly intact. Left side week, he slightly moving his left upper extremity and By the body side most of the time SKIN: No rashes. - Labs CBC & Chem 7: 04/09/18 09:47 04/11/18 07:52 Labs: Abnormal Lab Results - Last 24 Hours (Table) 04/10/18 04/11/18 04/11/18 Range/Units 17:58 02:20 06:27 Chloride (98-107) mmol/L BUN (9-20) mg/dL Glucose (74-99) mg/dL POC Glucose (mg/dL) 144 H 148 H 158 H (75-99) mg/dL 07/12/18 07/12/18 Range/Units 07:52 12:27 Chloride 109 H (98-107) mmol/L BUN 23 H (9-20) mg/dL Glucose 139 H (74-99) mg/dL POC Glucose (mg/dL) 121 H (75-99) mg/dL Microbiology - Last 24 Hours (Table) 04/08/18 08:12 Blood Culture - Preliminary Blood No Growth after 72 hours 04/07/18 02:40 Blood Culture - Preliminary Blood No Growth after 96 hours 04/07/18 02:40 Urine Culture - Final Urine,Catheterized Proteus mirabilis Pseudomonas aeruginosa Assessment and Plan Plan: -UTI, patient was on Zosyn. antibiotics has been changed to ceftazidime by ID consult and their input is appreciated. Urine culture is positive for Proteus and Pseudomonas sensitive to many cephalosporins. Patient still spiking fever. renal ultrasound: no hydronephrosis. -Hospital-acquired pneumonia vs aspiration pna, we'll check for Legionella in the urine: Pending. Patient antibiotic change to ceftazidime done by ID. Ports head of bed more than 30 and call dietitian consult for feeding via PEG tube evaluation as pt at risk of aspiration - History of MS with elements of altered mental status, CT of the brain showing extensive brain atrophy , no evidence of her brain infarcts. Neurology consult is appreciated. EEG: Pending, Continue with the Neurontin and baclofen -AMS most likely Metabolic encephalopathy as above -History of dysphagia, patient is getting food through PEG.dietitian consult is requested -Hypertension continue with Lopressor -Chronic DVT, on Coumadin and Lovenox. INR from 04/07/2018 was 2.3. Recheck INR DVT prophylaxis on Lovenox and Coumadin GI prophylaxis on Protonix Patient is going back to [facility] upon discharge Prognosis is guarded
[2018-04-11 15:20] LABS: Basophils % (A) 0 %; Eosinophils # (A) 0.2 k/uL (0-0.7); Eosinophils % (A) 1 %; HCT 35.4 % (39.0-53.0); HGB 11.6 gm/dL (13.0-17.5); Lymphocytes # (A) 1.5 k/uL (1.0-4.8); Lymphocytes % (A) 12 %; MCH 29.1 pg (25.0-35.0); MCHC 32.8 g/dL (31.0-37.0); MCV 88.6 fL (80.0-100.0); Mean Platelet Volume 7.3; Monocytes # (A) 0.7 k/uL (0-1.0); Monocytes % (A) 6 %; Neutrophils # (A) 9.7 k/uL (1.3-7.7); Neutrophils % (A) 79 %; Platelet Count 279 k/uL (150-450); RBC 3.99 m/uL (4.30-5.90); RDW 15.4 % (11.5-15.5); WBC 12.3 k/uL (3.8-10.6)
[2018-04-11 18:03] LABS: Glucose,Whole Blood 113 mg/dL (75-99)
--- NOTE | 2018-04-11 21:09 | PN ---
PROGRESS NOTE DATE OF SERVICE: 04/11/2018. REASON FOR FOLLOWUP: 1. Proteus mirabilis and Pseudomonas catheter urinary tract infection. 2. The patient with persistent fever, concern for possible aspiration pneumonia. INTERVAL HISTORY: The patient continued to have a low-grade fever of 100.5 to 100.9 being the highest. Patient seemed to have noticed to have some respiratory difficulties per the nurse with shallow breathing. However, when asked specifically no episode of vomiting has been noticed. The patient has been tolerating his tube feeds without any high residuals and noticed to have diarrhea though the patient himself is not able to provide any history. Most of the information has been obtained from talking to nursing staff, did have diarrhea though. REVIEW OF SYSTEMS: Could not be reliably obtained. The positive points as mentioned in HPI. Past medical and surgical history and medications are unchanged and have been reviewed. EXAMINATION: Blood pressure is 93/56, pulse of 89, temperature of 100.4. He is 92% on room air. General description is a middle-aged male lying in bed in no distress. RESPIRATORY SYSTEM: Unlabored breathing. Coarse breath sounds at bases. No wheeze. HEART. S1, S2. Regular rate. ABDOMEN: Soft. No tenderness. EXTREMITIES: No edema of the feet. LABS: Hemoglobin 11.6, white count 12.3 with a BUN of 23, creatinine 1.06. Repeat x-ray shows some . DIAGNOSTIC IMPRESSION/PLAN: Patient admitted tot [facility] with a fever with concern for a catheter associated urinary tract infection. His urine grow Pseudomonas and Proteus mirabilis. However, the patient being on the right antibiotic therapy is still having a fever with concern for possible aspiration or other etiology. The patient does have diarrhea. A stool for C difficile has been requested. Repeat blood culture has been ordered. Urine for Legionella antigen has been ordered. If all those are negative, to obtain a CT abdomen and pelvis to rule out any intraabdominal pathology. Overall prognosis remains guarded. Continue Fortaz at this point. Continue supportive care. MMODL / IJN: [id number] /
[2018-04-12 00:41] LABS: Glucose,Whole Blood 119 mg/dL (75-99)
[2018-04-12] MEDS: AMANTADINE HCL PEG/G-TUBE SCH ×2 (05:26→16:43)
[2018-04-12] MEDS: OXcarbazepine 300MG/5ML SUSP 15,000 MG/250 ML BOTTLE PEG/G-TUBE SCH ×2 (05:27→16:43)
[2018-04-12] MEDS: METOPROLOL TARTRATE 25 MG TAB PEG/G-TUBE SCH ×2 (05:27→16:43)
[2018-04-12] MEDS: GABAPENTIN 400 MG CAP PEG/G-TUBE SCH ×4 (05:27→23:35)
[2018-04-12] MEDS: GABAPENTIN 100 MG CAP PEG/G-TUBE SCH ×4 (05:27→23:35)
[2018-04-12 06:20] LABS: Glucose,Whole Blood 124 mg/dL (75-99)
[2018-04-12 09:37] LABS: INR 1.1 (<1.2); Prothrombin Time 10.9 sec (9.0-12.0)
[2018-04-12 09:53] LABS: Anion Gap 10 mmol/L; Blood Urea Nitrogen 19 mg/dL (9-20); Calcium 8.8 mg/dL (8.4-10.2); Carbon Dioxide 23 mmol/L (22-30); Chloride 111 mmol/L (98-107); Glucose 110 mg/dL (74-99); Potassium 4.2 mmol/L (3.5-5.1); Sodium 144 mmol/L (137-145)
[2018-04-12 10:02] LABS: Basophils % (A) 0 %; Eosinophils # (A) 0.3 k/uL (0-0.7); Eosinophils % (A) 3 %; HCT 35.6 % (39.0-53.0); HGB 11.4 gm/dL (13.0-17.5); Lymphocytes % (A) 10 %; MCH 28.8 pg (25.0-35.0); Mean Platelet Volume 7.7; Monocytes # (A) 0.6 k/uL (0-1.0); Monocytes % (A) 6 %; Neutrophils # (A) 8.4 k/uL (1.3-7.7); Neutrophils % (A) 81 %; Platelet Count 291 k/uL (150-450); RBC 3.95 m/uL (4.30-5.90); RDW 15.3 % (11.5-15.5); WBC 10.4 k/uL (3.8-10.6)
[2018-04-12] MEDS: MULTIVITAMINS, THERA 1 EACH TAB PO SCH (10:07)
[2018-04-12] MEDS: ENOXAPARIN 80 MG/0.8 ML SYRINGE SQ SCH ×2 (10:07→21:01)
[2018-04-12] MEDS: CHOLECALCIFEROL 1,000 UNIT TAB PEG/G-TUBE SCH (10:07)
[2018-04-12] MEDS: ASCORBIC ACID 500 MG TAB PEG/G-TUBE SCH (10:07)
[2018-04-12] MEDS: DOCUSATE ORAL SOLN 100 MG/10 ML CUP PEG/G-TUBE SCH ×2 (10:10→21:00)
[2018-04-12] MEDS: MAGNESIUM OXIDE 400 MG TAB PEG/G-TUBE SCH (10:10)
[2018-04-12] MEDS: BACLOFEN 10 MG TAB PEG/G-TUBE SCH ×3 (10:11→21:01)
[2018-04-12] MEDS: PANTOPRAZOLE SODIUM 40 MG GRANULE PKT PEG/G-TUBE SCH (10:12)
[2018-04-12] MEDS: FERROUS SULFATE ORAL ELIXIR 300 MG/5 ML CUP PEG/G-TUBE SCH (10:12)
[2018-04-12 10:34] LABS: Albumin 3.1 g/dL (3.5-5.0); Bilirubin, Delta 0.2 mg/dL (0.0-0.2); Total Bilirubin 0.2 mg/dL (0.2-1.3)
[2018-04-12 12:18] LABS: Glucose,Whole Blood 137 mg/dL (75-99)
[2018-04-12] MEDS ORDERED: ACETAMINOPHEN IV (For NPO) 1,000 MG in EMPTY BAG 1 BAG IVPB STA (14:33)
[2018-04-12 17:59] LABS: Glucose,Whole Blood 118 mg/dL (75-99)
[2018-04-12] MEDS: OSELTAMIVIR 75 MG CAP PEG/G-TUBE SCH (23:35)
[2018-04-13 02:31] LABS: Glucose,Whole Blood 111 mg/dL (75-99)
[2018-04-13] MEDS: AMANTADINE HCL PEG/G-TUBE SCH ×2 (06:04→15:54)
[2018-04-13] MEDS: OXcarbazepine 300MG/5ML SUSP 15,000 MG/250 ML BOTTLE PEG/G-TUBE SCH ×2 (06:04→15:56)
[2018-04-13] MEDS: GABAPENTIN 400 MG CAP PEG/G-TUBE SCH ×4 (06:05→21:47)
[2018-04-13] MEDS: GABAPENTIN 100 MG CAP PEG/G-TUBE SCH ×4 (06:05→21:45)
[2018-04-13] MEDS: METOPROLOL TARTRATE 25 MG TAB PEG/G-TUBE SCH ×2 (06:05→15:56)
[2018-04-13 06:06] LABS: Glucose,Whole Blood 135 mg/dL (75-99)
[2018-04-13 08:13] LABS: Basophils % (A) 0 %; Eosinophils # (A) 0.4 k/uL (0-0.7); Eosinophils % (A) 5 %; HCT 36.2 % (39.0-53.0); HGB 11.7 gm/dL (13.0-17.5); Lymphocytes # (A) 1.1 k/uL (1.0-4.8); Lymphocytes % (A) 14 %; MCH 28.5 pg (25.0-35.0); MCHC 32.3 g/dL (31.0-37.0); MCV 88.2 fL (80.0-100.0); Mean Platelet Volume 8.1; Monocytes # (A) 0.7 k/uL (0-1.0); Monocytes % (A) 9 %; Neutrophils # (A) 5.9 k/uL (1.3-7.7); Neutrophils % (A) 71 %; Platelet Count 296 k/uL (150-450); RDW 15.1 % (11.5-15.5); WBC 8.3 k/uL (3.8-10.6)
[2018-04-13 08:15] LABS: INR 1.1 (<1.2); Prothrombin Time 10.9 sec (9.0-12.0)
[2018-04-13 08:26] LABS: ALT 25 U/L (21-72); AST 16 U/L (17-59); Albumin 3.3 g/dL (3.5-5.0); Alkaline Phosphatase 64 U/L (38-126); Anion Gap 12 mmol/L; Bilirubin, Delta 0.2 mg/dL (0.0-0.2); Blood Urea Nitrogen 17 mg/dL (9-20); Carbon Dioxide 22 mmol/L (22-30); Chloride 112 mmol/L (98-107); Glucose 119 mg/dL (74-99); Potassium 4.3 mmol/L (3.5-5.1); Sodium 146 mmol/L (137-145); Total Bilirubin 0.2 mg/dL (0.2-1.3); Total Protein 6.3 g/dL (6.3-8.2)
[2018-04-13] MEDS: DOCUSATE ORAL SOLN 100 MG/10 ML CUP PEG/G-TUBE SCH ×2 (08:58→21:45)
[2018-04-13] MEDS: ENOXAPARIN 80 MG/0.8 ML SYRINGE SQ SCH ×2 (08:58→21:45)
[2018-04-13] MEDS: ASCORBIC ACID 500 MG TAB PEG/G-TUBE SCH (09:00)
[2018-04-13] MEDS: PANTOPRAZOLE SODIUM 40 MG GRANULE PKT PEG/G-TUBE SCH (09:00)
[2018-04-13] MEDS: BACLOFEN 10 MG TAB PEG/G-TUBE SCH ×3 (09:01→21:46)
[2018-04-13] MEDS: FERROUS SULFATE ORAL ELIXIR 300 MG/5 ML CUP PEG/G-TUBE SCH (09:02)
[2018-04-13] MEDS: MAGNESIUM OXIDE 400 MG TAB PEG/G-TUBE SCH (09:02)
[2018-04-13] MEDS: CHOLECALCIFEROL 1,000 UNIT TAB PEG/G-TUBE SCH (09:02)
[2018-04-13] MEDS: MULTIVITAMINS, THERA 1 EACH TAB PO SCH (09:02)
[2018-04-13] MEDS: OSELTAMIVIR 75 MG CAP PEG/G-TUBE SCH ×2 (09:03→21:46)
[2018-04-13] MEDS: SCOPOLAMINE 1.5MG/72HR PATCH TRANSDERM SCH (09:09)
[2018-04-13 12:30] LABS: Glucose,Whole Blood 145 mg/dL (75-99)
--- NOTE | 2018-04-13 17:22 | P.PN ---
Subjective Progress Note Date: 04/12/18 Mr. Marvin is a 57-year-old male with a past medical history of multiple sclerosis, DVT, bed bound with contractures, dependence on tube feeds for nutrition, dysarthria and [facility]ph[facility]. Patient is nonverbal and confused at baseline. Most of the history is taken from the sister who is at the bedside. Sister mentions that patient was having cough and difficulty in breathing and so had a chest x-ray done which was positive for right lower lobe pneumonia and so he has been started on ciprofloxacin. She visited him on and he was at his baseline. Patient has a Stein's catheter in place chronically. He has a PEG tube in place for nutrition. He cannot eat or drink anything by mouth. Patient has a history of sacral decubitus ulcers in the past that is healing now. Objective - Vital Signs Vital signs: Vital Signs Temp 97.9 F 04/12/18 06:23 Pulse 86 04/12/18 06:23 Resp 18 04/12/18 06:23 BP 113/75 04/12/18 06:23 Pulse Ox 93 L 04/12/18 06:23 Intake & Output 04/11/18 04/12/18 04/12/18 18:59 06:59 18:59 Output Total 650 275 Balance -650 -275 Weight 68 kg 69 kg 69 kg Output: Urine 650 275 Other: Voiding Method Indwelling Catheter Indwelling Catheter # Voids 1 1 # Bowel Movements 1 - Exam GENERAL: The patient is alert but more confused today , usually he shakes his head yes or no before but not today, not in any acute distress. Well developed, well nourished. HEENT: Pupils are round and equally reacting to light. EOMI. No scleral icterus. No conjunctival pallor. Normocephalic, atraumatic. No pharyngeal erythema. No thyromegaly. CARDIOVASCULAR: S1 and S2 present. No murmurs, rubs, or gallops. -PULMONARY: Chest is clear to auscultation, no wheezing . left basal crackles. -ABDOMEN: Soft, nontender, nondistended, normoactive bowel sounds. No palpable organomegaly. Stein catheter in place with clear urine MUSCULOSKELETAL: No joint swelling or deformity. EXTREMITIES: No cyanosis, clubbing, or pedal edema. -NEUROLOGICAL:pt is more confused today. Cranial nerves are grossly intact. Left side week, he slightly moving his left upper extremity and By the body side most of the time SKIN: No rashes. - Labs CBC & Chem 7: 04/13/18 07:37 04/13/18 07:37 Labs: Abnormal Lab Results - Last 24 Hours (Table) 04/11/18 04/11/18 04/12/18 Range/Units 15:00 18:00 00:38 WBC 12.3 H (3.8-10.6) k/uL RBC 3.99 L (4.30-5.90) m/uL Hgb 11.6 L (13.0-17.5) gm/dL Hct 35.4 L (39.0-53.0) % Neutrophils # 9.7 H (1.3-7.7) k/uL Chloride (98-107) mmol/L Glucose (74-99) mg/dL POC Glucose (mg/dL) 113 H 119 H (75-99) mg/dL AST (17-59) U/L Total Protein (6.3-8.2) g/dL Albumin (3.5-5.0) g/dL 04/12/18 04/12/18 04/12/18 Range/Units 06:16 08:38 08:38 WBC (3.8-10.6) k/uL RBC (4.30-5.90) m/uL Hgb (13.0-17.5) gm/dL Hct (39.0-53.0) % Neutrophils # (1.3-7.7) k/uL Chloride 111 H (98-107) mmol/L Glucose 110 H (74-99) mg/dL POC Glucose (mg/dL) 124 H (75-99) mg/dL AST 16 L (17-59) U/L Total Protein 6.0 L (6.3-8.2) g/dL Albumin 3.1 L (3.5-5.0) g/dL 04/12/18 04/12/18 Range/Units 08:38 12:14 WBC (3.8-10.6) k/uL RBC 3.95 L (4.30-5.90) m/uL Hgb 11.4 L (13.0-17.5) gm/dL Hct 35.6 L (39.0-53.0) % Neutrophils # 8.4 H (1.3-7.7) k/uL Chloride (98-107) mmol/L Glucose (74-99) mg/dL POC Glucose (mg/dL) 137 H (75-99) mg/dL AST (17-59) U/L Total Protein (6.3-8.2) g/dL Albumin (3.5-5.0) g/dL Microbiology - Last 24 Hours (Table) 04/08/18 08:12 Blood Culture - Preliminary Blood No Growth after 96 hours 04/07/18 02:40 Blood Culture - Preliminary Blood No Growth after 120 hours 04/10/18 17:08 Blood Culture - Preliminary Blood No Growth after 24 hours Assessment and Plan Assessment: 1. Complicated UTI; - patient was on Zosyn. antibiotics has been changed to ceftazidime by ID consult and their input is appreciated. Urine culture is positive for Proteus and Pseudomonas sensitive to many cephalosporins. Patient still spiking fever. renal ultrasound: no hydronephrosis. 2. Gram-negative bacteremia - Proteus mirabilis and Pseudomonas - IDs following; await further recommendations 3. Hospital-acquired pneumonia vs aspiration PNA - we'll check for Legionella in the urine: Pending. Patient antibiotic change to ceftazidime done by ID. Ports head of bed more than 30 and call dietitian consult for feeding via PEG tube evaluation as pt at risk of aspiration 4. History of MS with elements of altered mental status, CT of the brain showing extensive brain atrophy , no evidence of her brain infarcts. Neurology consult is appreciated. EEG: Pending, Continue with the Neurontin and baclofen 5. AMS most likely Metabolic encephalopathy as above 6. History of dysphagia, patient is getting food through PEG.dietitian consult is requested 7. Hypertension continue with Lopressor 8. Chronic DVT, on Coumadin and Lovenox. INR from 04/07/2018 was 2.3. Recheck INR Time with Patient: Greater than 30
--- NOTE | 2018-04-13 17:23 | P.PN ---
Subjective Progress Note Date: 04/13/18 Mr. Marvin is a 57-year-old male with a past medical history of multiple sclerosis, DVT, bed bound with contractures, dependence on tube feeds for nutrition, dysarthria and dysphagia sent in from [facility] for altered mental status changes. Patient is nonverbal and confused at baseline. Most of the history is taken from the sister who is at the bedside. Sister mentions that patient was having cough and difficulty in breathing and so had a chest x-ray done which was positive for right lower lobe pneumonia and so he has been started on ciprofloxacin. She visited him on and he was at his baseline. Patient has a Stein's catheter in place chronically. He has a PEG tube in place for nutrition. He cannot eat or drink anything by mouth. Patient has a history of sacral decubitus ulcers in the past that is healing now. Objective - Vital Signs Vital signs: Vital Signs Temp 97.5 F L 04/13/18 15:00 Pulse 84 04/13/18 15:00 Resp 20 04/13/18 15:00 BP 132/82 04/13/18 15:00 Pulse Ox 93 L 04/13/18 15:00 Intake & Output 04/12/18 04/13/18 04/13/18 18:59 06:59 18:59 Intake Total 100 Output Total 550 1500 675 Balance -550 -1500 -575 Weight 69 kg 68.5 kg Intake: Intake, IV Titration 100 Amount cefTAZidime 2 gm In 100 Sodium Chloride 0.9% 100 ml @ 100 mls/hr IVPB Q8HR [facility] Rx#:[id number] Output: Urine 550 1500 675 Uretheral (Stein) 500 Other: Voiding Method Indwelling Catheter # Bowel Movements 0 - Exam GENERAL: The patient is alert but more confused today , usually he shakes his head yes or no before but not today, not in any acute distress. Well developed, well nourished. HEENT: Pupils are round and equally reacting to light. EOMI. No scleral icterus. No conjunctival pallor. Normocephalic, atraumatic. No pharyngeal erythema. No thyromegaly. CARDIOVASCULAR: S1 and S2 present. No murmurs, rubs, or gallops. -PULMONARY: Chest is clear to auscultation, no wheezing . left basal crackles. -ABDOMEN: Soft, nontender, nondistended, normoactive bowel sounds. No palpable organomegaly. Stein catheter in place with clear urine MUSCULOSKELETAL: No joint swelling or deformity. EXTREMITIES: No cyanosis, clubbing, or pedal edema. -NEUROLOGICAL:pt is more confused today. Cranial nerves are grossly intact. Left side week, he slightly moving his left upper extremity and By the body side most of the time SKIN: No rashes. - Labs CBC & Chem 7: 04/13/18 07:37 04/13/18 07:37 Labs: Abnormal Lab Results - Last 24 Hours (Table) 04/12/18 04/13/18 04/13/18 Range/Units 17:55 02:29 06:01 RBC (4.30-5.90) m/uL Hgb (13.0-17.5) gm/dL Hct (39.0-53.0) % Sodium (137-145) mmol/L Chloride (98-107) mmol/L Glucose (74-99) mg/dL POC Glucose (mg/dL) 118 H 111 H 135 H (75-99) mg/dL AST (17-59) U/L Albumin (3.5-5.0) g/dL 04/13/18 04/13/18 04/13/18 Range/Units 07:37 07:37 12:15 RBC 4.10 L (4.30-5.90) m/uL Hgb 11.7 L (13.0-17.5) gm/dL Hct 36.2 L (39.0-53.0) % Sodium 146 H (137-145) mmol/L Chloride 112 H (98-107) mmol/L Glucose 119 H (74-99) mg/dL POC Glucose (mg/dL) 145 H (75-99) mg/dL AST 16 L (17-59) U/L Albumin 3.3 L (3.5-5.0) g/dL Microbiology - Last 24 Hours (Table) 04/11/18 15:00 Blood Culture - Preliminary Blood No Growth after 48 hours 04/08/18 08:12 Blood Culture - Preliminary Blood No Growth after 120 hours 04/07/18 02:40 Blood Culture - Final Blood No Growth after 144 hours 04/10/18 17:08 Blood Culture - Preliminary Blood No Growth after 48 hours Assessment and Plan Assessment: 1. Complicated UTI; - patient was on Zosyn. antibiotics has been changed to ceftazidime by ID consult and their input is appreciated. Urine culture is positive for Proteus and Pseudomonas sensitive to many cephalosporins. Patient still spiking fever. renal ultrasound: no hydronephrosis. 2. Gram-negative bacteremia - Proteus mirabilis and Pseudomonas - IDs following; await further recommendations 3. Hospital-acquired pneumonia vs aspiration PNA - we'll check for Legionella in the urine: Pending. Patient antibiotic change to ceftazidime done by ID. Ports head of bed more than 30 and call dietitian consult for feeding via PEG tube evaluation as pt at risk of aspiration 4. History of MS with elements of altered mental status, CT of the brain showing extensive brain atrophy , no evidence of her brain infarcts. Neurology consult is appreciated. EEG: Pending, Continue with the Neurontin and baclofen 5. AMS most likely Metabolic encephalopathy as above 6. History of dysphagia, patient is getting food through PEG.dietitian consult is requested 7. Hypertension continue with Lopressor 8. Chronic DVT, on Coumadin and Lovenox. INR from 04/07/2018 was 2.3. Recheck INR Time with Patient: Greater than 30
[2018-04-13 17:34] LABS: Glucose,Whole Blood 106 mg/dL (75-99)
[2018-04-13] MEDS: ACETAMINOPHEN TAB 325 MG TAB PO PRN (22:21)
[2018-04-14 01:11] LABS: Glucose,Whole Blood 126 mg/dL (75-99)
[2018-04-14] MEDS: IBUPROFEN ORAL SUSP 100 MG/5 ML CUP PO PRN ×3 (01:34→17:50)
[2018-04-14] MEDS: METOPROLOL TARTRATE 25 MG TAB PEG/G-TUBE SCH ×2 (05:40→16:58)
[2018-04-14] MEDS: GABAPENTIN 100 MG CAP PEG/G-TUBE SCH ×4 (05:40→21:10)
[2018-04-14] MEDS: AMANTADINE HCL PEG/G-TUBE SCH ×2 (05:41→16:57)
[2018-04-14] MEDS: OXcarbazepine 300MG/5ML SUSP 15,000 MG/250 ML BOTTLE PEG/G-TUBE SCH ×2 (05:41→16:58)
[2018-04-14] MEDS: GABAPENTIN 400 MG CAP PEG/G-TUBE SCH ×4 (05:41→21:10)
[2018-04-14 06:24] LABS: Glucose,Whole Blood 119 mg/dL (75-99)
[2018-04-14 08:16] LABS: Basophils % (A) 0 %; Eosinophils # (A) 0.4 k/uL (0-0.7); Eosinophils % (A) 6 %; HCT 36.4 % (39.0-53.0); HGB 11.8 gm/dL (13.0-17.5); Lymphocytes # (A) 1.1 k/uL (1.0-4.8); Lymphocytes % (A) 15 %; MCH 28.7 pg (25.0-35.0); MCHC 32.4 g/dL (31.0-37.0); MCV 88.5 fL (80.0-100.0); Mean Platelet Volume 7.7; Monocytes # (A) 0.6 k/uL (0-1.0); Monocytes % (A) 8 %; Neutrophils % (A) 68 %; Platelet Count 338 k/uL (150-450); RBC 4.12 m/uL (4.30-5.90); RDW 15.1 % (11.5-15.5); WBC 7.3 k/uL (3.8-10.6)
[2018-04-14 08:25] LABS: INR 1.1 (<1.2)
[2018-04-14 08:27] LABS: ALT 24 U/L (21-72); AST 13 U/L (17-59); Albumin 3.3 g/dL (3.5-5.0); Alkaline Phosphatase 67 U/L (38-126); Anion Gap 9 mmol/L; Bilirubin, Delta 0.2 mg/dL (0.0-0.2); Blood Urea Nitrogen 21 mg/dL (9-20); Calcium 9.2 mg/dL (8.4-10.2); Carbon Dioxide 22 mmol/L (22-30); Chloride 114 mmol/L (98-107); Glucose 113 mg/dL (74-99); Potassium 4.4 mmol/L (3.5-5.1); Sodium 145 mmol/L (137-145); Total Bilirubin 0.2 mg/dL (0.2-1.3); Total Protein 6.3 g/dL (6.3-8.2)
[2018-04-14] MEDS: ENOXAPARIN 80 MG/0.8 ML SYRINGE SQ SCH ×2 (09:06→21:09)
[2018-04-14] MEDS: DOCUSATE ORAL SOLN 100 MG/10 ML CUP PEG/G-TUBE SCH ×2 (09:07→21:08)
[2018-04-14] MEDS: ACETAMINOPHEN TAB 325 MG TAB PO PRN ×2 (09:07→17:08)
[2018-04-14] MEDS: PANTOPRAZOLE SODIUM 40 MG GRANULE PKT PEG/G-TUBE SCH (09:07)
[2018-04-14] MEDS: FERROUS SULFATE ORAL ELIXIR 300 MG/5 ML CUP PEG/G-TUBE SCH (09:07)
[2018-04-14] MEDS: OSELTAMIVIR 75 MG CAP PEG/G-TUBE SCH ×2 (09:09→21:09)
[2018-04-14] MEDS: CHOLECALCIFEROL 1,000 UNIT TAB PEG/G-TUBE SCH (09:09)
[2018-04-14] MEDS: ASCORBIC ACID 500 MG TAB PEG/G-TUBE SCH (09:09)
[2018-04-14] MEDS: BACLOFEN 10 MG TAB PEG/G-TUBE SCH ×3 (09:09→21:09)
[2018-04-14] MEDS: MULTIVITAMINS, THERA 1 EACH TAB PO SCH (09:09)
[2018-04-14] MEDS: MAGNESIUM OXIDE 400 MG TAB PEG/G-TUBE SCH (09:10)
[2018-04-14 12:07] LABS: Glucose,Whole Blood 134 mg/dL (75-99)
--- NOTE | 2018-04-14 17:06 | P.PN ---
Subjective Progress Note Date: 04/14/18 Principal diagnosis: Complicated UTI; hospital-acquired versus aspiration pneumonia Mr. Marvin is a 57-year-old male with a past medical history of multiple sclerosis, DVT, bed bound with contractures, dependence on tube feeds for nutrition, dysarthria and dysphagia sent in from his [facility] for altered mental status changes. Patient is nonverbal and confused at baseline. Most of the history is taken from the sister who is at the bedside. Sister mentions that patient was having cough and difficulty in breathing and so had a chest x-ray done which was positive for right lower lobe pneumonia and so he has been started on ciprofloxacin. She visited him on and he was at his baseline. Patient has a Stein's catheter in place chronically. He has a PEG tube in place for nutrition. He cannot eat or drink anything by mouth. Patient has a history of sacral decubitus ulcers in the past that is healing now. 04/14/2018; patient seen and evaluated in the room at bedside; no family members are present in the room at this time; patient is more awake and alert; we plan to continue current antibiotics for positive urine culture for Proteus and Pseudomonas; await further recommendations from ID for duration of IV antibiotics Objective - Vital Signs Vital signs: Vital Signs Temp 98.2 F 04/14/18 09:15 Pulse 78 04/14/18 06:10 Resp 18 04/14/18 06:10 BP 134/80 04/14/18 06:10 Pulse Ox 96 04/14/18 06:10 Intake & Output 04/13/18 04/14/18 04/14/18 18:59 06:59 18:59 Intake Total 100 500 100 Output Total 1350 Balance -1250 500 100 Weight 68.5 kg 71 kg Intake: Intake, IV Titration 100 100 Amount cefTAZidime 2 gm In 100 100 Sodium Chloride 0.9% 100 ml @ 100 mls/hr IVPB Q8HR [facility] Rx#:[id number] Tube Feeding 500 Output: Urine 1350 Other: Voiding Method Indwelling Catheter Indwelling Catheter # Voids 1 0 # Bowel Movements 0 0 - Exam GENERAL: The patient is alert but more confused today , usually he shakes his head yes or no before but not today, not in any acute distress. Well developed, well nourished. HEENT: Pupils are round and equally reacting to light. EOMI. No scleral icterus. No conjunctival pallor. Normocephalic, atraumatic. No pharyngeal erythema. No thyromegaly. CARDIOVASCULAR: S1 and S2 present. No murmurs, rubs, or gallops. -PULMONARY: Chest is clear to auscultation, no wheezing . left basal crackles. -ABDOMEN: Soft, nontender, nondistended, normoactive bowel sounds. No palpable organomegaly. Stein catheter in place with clear urine MUSCULOSKELETAL: No joint swelling or deformity. EXTREMITIES: No cyanosis, clubbing, or pedal edema. -NEUROLOGICAL:pt is more confused today. Cranial nerves are grossly intact. Left side week, he slightly moving his left upper extremity and By the body side most of the time SKIN: No rashes. - Labs CBC & Chem 7: 04/14/18 07:50 04/14/18 07:50 Labs: Abnormal Lab Results - Last 24 Hours (Table) 04/13/18 04/14/18 04/14/18 Range/Units 17:25 01:08 06:20 RBC (4.30-5.90) m/uL Hgb (13.0-17.5) gm/dL Hct (39.0-53.0) % Chloride (98-107) mmol/L BUN (9-20) mg/dL Glucose (74-99) mg/dL POC Glucose (mg/dL) 106 H 126 H 119 H (75-99) mg/dL AST (17-59) U/L Albumin (3.5-5.0) g/dL 04/14/18 04/14/18 04/14/18 Range/Units 07:50 07:50 11:55 RBC 4.12 L (4.30-5.90) m/uL Hgb 11.8 L (13.0-17.5) gm/dL Hct 36.4 L (39.0-53.0) % Chloride 114 H (98-107) mmol/L BUN 21 H (9-20) mg/dL Glucose 113 H (74-99) mg/dL POC Glucose (mg/dL) 134 H (75-99) mg/dL AST 13 L (17-59) U/L Albumin 3.3 L (3.5-5.0) g/dL Microbiology - Last 24 Hours (Table) 04/08/18 08:12 Blood Culture - Final Blood No Growth after 144 hours 04/10/18 17:08 Blood Culture - Preliminary Blood No Growth after 72 hours 04/11/18 15:00 Blood Culture - Preliminary Blood No Growth after 48 hours Assessment and Plan Assessment: 1. Complicated UTI; - patient was on Zosyn. antibiotics has been changed to ceftazidime by ID consult and their input is appreciated. Urine culture is positive for Proteus and Pseudomonas sensitive to many cephalosporins. Patient still spiking fever. renal ultrasound: no hydronephrosis. 2. Gram-negative bacteremia - Proteus mirabilis and Pseudomonas - IDs following; await further recommendations 3. Hospital-acquired pneumonia vs aspiration PNA - we'll check for Legionella in the urine: Pending. Patient antibiotic change to ceftazidime done by ID. Ports head of bed more than 30 and call dietitian consult for feeding via PEG tube evaluation as pt at risk of aspiration 4. History of MS with elements of altered mental status, CT of the brain showing extensive brain atrophy , no evidence of her brain infarcts. Neurology consult is appreciated. EEG: Pending, Continue with the Neurontin and baclofen 5. AMS most likely Metabolic encephalopathy as above 6. History of dysphagia, patient is getting food through PEG.dietitian consult is requested 7. Hypertension continue with Lopressor 8. Chronic DVT, on Coumadin and Lovenox. INR from 04/07/2018 was 2.3. Recheck INR Time with Patient: Greater than 30
[2018-04-14 17:23] LABS: Glucose,Whole Blood 119 mg/dL (75-99)
[2018-04-15 00:33] LABS: Glucose,Whole Blood 114 mg/dL (75-99)
[2018-04-15] MEDS: AMANTADINE HCL PEG/G-TUBE SCH ×2 (06:23→16:27)
[2018-04-15] MEDS: GABAPENTIN 400 MG CAP PEG/G-TUBE SCH ×4 (06:23→21:29)
[2018-04-15] MEDS: GABAPENTIN 100 MG CAP PEG/G-TUBE SCH ×4 (06:23→21:29)
[2018-04-15] MEDS: OXcarbazepine 300MG/5ML SUSP 15,000 MG/250 ML BOTTLE PEG/G-TUBE SCH ×2 (06:24→16:27)
[2018-04-15] MEDS: METOPROLOL TARTRATE 25 MG TAB PEG/G-TUBE SCH ×2 (06:24→16:27)
[2018-04-15 06:41] LABS: Glucose,Whole Blood 119 mg/dL (75-99)
[2018-04-15 08:57] LABS: INR 1.2 (<1.2); Prothrombin Time 11.4 sec (9.0-12.0)
[2018-04-15 09:14] LABS: ALT 25 U/L (21-72); AST 14 U/L (17-59); Albumin 3.2 g/dL (3.5-5.0); Alkaline Phosphatase 66 U/L (38-126); Anion Gap 9 mmol/L; Bilirubin, Delta 0.1 mg/dL (0.0-0.2); Blood Urea Nitrogen 20 mg/dL (9-20); Calcium 8.9 mg/dL (8.4-10.2); Carbon Dioxide 21 mmol/L (22-30); Chloride 114 mmol/L (98-107); Glucose 114 mg/dL (74-99); Potassium 4.2 mmol/L (3.5-5.1); Sodium 144 mmol/L (137-145); Total Bilirubin 0.1 mg/dL (0.2-1.3); Total Protein 6.2 g/dL (6.3-8.2)
[2018-04-15 09:32] LABS: Basophils % (A) 1 %; Eosinophils # (A) 0.4 k/uL (0-0.7); Eosinophils % (A) 4 %; HCT 38.5 % (39.0-53.0); HGB 11.8 gm/dL (13.0-17.5); Hypochromasia Slight; Lymphocytes % (A) 13 %; MCH 27.5 pg (25.0-35.0); MCHC 30.6 g/dL (31.0-37.0); MCV 89.7 fL (80.0-100.0); Mean Platelet Volume 7.8; Monocytes # (A) 0.6 k/uL (0-1.0); Monocytes % (A) 8 %; Neutrophils # (A) 5.7 k/uL (1.3-7.7); Neutrophils % (A) 72 %; Platelet Count 388 k/uL (150-450); RBC 4.29 m/uL (4.30-5.90); RDW 15.2 % (11.5-15.5); WBC 7.9 k/uL (3.8-10.6)
[2018-04-15] MEDS: FERROUS SULFATE ORAL ELIXIR 300 MG/5 ML CUP PEG/G-TUBE SCH (10:55)
[2018-04-15] MEDS: DOCUSATE ORAL SOLN 100 MG/10 ML CUP PEG/G-TUBE SCH ×2 (10:55→19:53)
[2018-04-15] MEDS: ASCORBIC ACID 500 MG TAB PEG/G-TUBE SCH (10:55)
[2018-04-15] MEDS: ENOXAPARIN 80 MG/0.8 ML SYRINGE SQ SCH ×2 (10:55→19:53)
[2018-04-15] MEDS: OSELTAMIVIR 75 MG CAP PEG/G-TUBE SCH ×2 (10:56→19:54)
[2018-04-15] MEDS: MULTIVITAMINS, THERA 1 EACH TAB PO SCH (10:56)
[2018-04-15] MEDS: PANTOPRAZOLE SODIUM 40 MG GRANULE PKT PEG/G-TUBE SCH (10:56)
[2018-04-15] MEDS: BACLOFEN 10 MG TAB PEG/G-TUBE SCH ×3 (10:56→21:29)
[2018-04-15] MEDS: MAGNESIUM OXIDE 400 MG TAB PEG/G-TUBE SCH (10:56)
[2018-04-15] MEDS: CHOLECALCIFEROL 1,000 UNIT TAB PEG/G-TUBE SCH (10:56)
[2018-04-15 12:22] LABS: Glucose,Whole Blood 100 mg/dL (75-99)
[2018-04-15] MEDS: IBUPROFEN ORAL SUSP 100 MG/5 ML CUP PO PRN (17:17)
[2018-04-15 17:18] LABS: Glucose,Whole Blood 114 mg/dL (75-99)
--- NOTE | 2018-04-15 17:46 | P.PN ---
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 Patient is presently on ceftazidime . Infectious disease is recommending one more day of hospitalization. Review of systems: Unable to obtain Objective - Vital Signs Vital signs: Vital Signs Temp 98.1 F 04/15/18 13:38 Pulse 89 04/15/18 13:38 Resp 16 04/15/18 13:38 BP 110/58 04/15/18 13:38 Pulse Ox 94 L 04/15/18 13:38 Intake & Output 04/14/18 04/15/18 04/15/18 18:59 06:59 18:59 Intake Total 820 720 Output Total 1350 1225 500 Balance -530 -1225 220 Weight 71 kg 70.5 kg Intake: Intake, IV Titration 100 Amount cefTAZidime 2 gm In 100 Sodium Chloride 0.9% 100 ml @ 100 mls/hr IVPB Q8HR [facility] Rx#:[id number] Tube Feeding 720 720 Output: Urine 1350 1225 500 Other: Voiding Method Indwelling Catheter Indwelling Catheter Indwelling Catheter # Voids 0 # Bowel Movements 0 1 1 - Exam GENERAL: The patient is alert , mental status appears to be at his baseline , HEENT: Pupils are round and equally reacting to light. EOMI. No scleral icterus. No conjunctival pallor. Normocephalic, atraumatic. No pharyngeal erythema. No thyromegaly. CARDIOVASCULAR: S1 and S2 present. No murmurs, rubs, or gallops. -PULMONARY: Chest is clear to auscultation, no wheezing . left basal crackles. -ABDOMEN: Soft, nontender, nondistended, normoactive bowel sounds. No palpable organomegaly. Stein catheter in place with clear urine MUSCULOSKELETAL: No joint swelling or deformity. EXTREMITIES: No cyanosis, clubbing, or pedal edema. -NEUROLOGICAL: No new weakness but does have chronic contractures SKIN: No rashes. - Labs CBC & Chem 7: 04/15/18 08:40 04/15/18 08:40 Labs: Abnormal Lab Results - Last 24 Hours (Table) 04/15/18 04/15/18 04/15/18 Range/Units 00:29 06:40 08:40 RBC (4.30-5.90) m/uL Hgb (13.0-17.5) gm/dL Hct (39.0-53.0) % MCHC (31.0-37.0) g/dL INR 1.2 H (<1.2) Chloride (98-107) mmol/L Carbon Dioxide (22-30) mmol/L Glucose (74-99) mg/dL POC Glucose (mg/dL) 114 H 119 H (75-99) mg/dL Total Bilirubin (0.2-1.3) mg/dL AST (17-59) U/L Total Protein (6.3-8.2) g/dL Albumin (3.5-5.0) g/dL 04/15/18 04/15/18 04/15/18 Range/Units 08:40 08:40 12:17 RBC 4.29 L (4.30-5.90) m/uL Hgb 11.8 L (13.0-17.5) gm/dL Hct 38.5 L (39.0-53.0) % MCHC 30.6 L (31.0-37.0) g/dL INR (<1.2) Chloride 114 H (98-107) mmol/L Carbon Dioxide 21 L (22-30) mmol/L Glucose 114 H (74-99) mg/dL POC Glucose (mg/dL) 100 H (75-99) mg/dL Total Bilirubin 0.1 L (0.2-1.3) mg/dL AST 14 L (17-59) U/L Total Protein 6.2 L (6.3-8.2) g/dL Albumin 3.2 L (3.5-5.0) g/dL 04/15/18 Range/Units 17:06 RBC (4.30-5.90) m/uL Hgb (13.0-17.5) gm/dL Hct (39.0-53.0) % MCHC (31.0-37.0) g/dL INR (<1.2) Chloride (98-107) mmol/L Carbon Dioxide (22-30) mmol/L Glucose (74-99) mg/dL POC Glucose (mg/dL) 114 H (75-99) mg/dL Total Bilirubin (0.2-1.3) mg/dL AST (17-59) U/L Total Protein (6.3-8.2) g/dL Albumin (3.5-5.0) g/dL Microbiology - Last 24 Hours (Table) 04/11/18 15:00 Blood Culture - Preliminary Blood No Growth after 96 hours 04/10/18 17:08 Blood Culture - Preliminary Blood No Growth after 96 hours Assessment and Plan Plan: Assessment and Plan Assessment: 1. Complicated UTI; Patient is on ceftazidime by ID consult and their input is appreciated. Urine culture is positive for Proteus and Pseudomonas sensitive , no fever since yesterday 2. Gram-negative sepsis from urinary tract infection - Proteus mirabilis and Pseudomonas, blood cultures from last 96 hours at negative #3 chronic medical debility from chronic contractures. 4. History of MS with elements of altered mental status, CT of the brain showing extensive brain atrophy , no evidence of her brain infarcts. Neurology consult is appreciated. EEG: Pending, Continue with the Neurontin and baclofen 5. AMS most likely Metabolic encephalopathy as above 6. History of dysphagia, patient is getting food through PEG 7. Hypertension continue with Lopressor 8. Chronic DVT, patient is on Lovenox Time with Patient: Greater than 30
[2018-04-15] MEDS: ACETAMINOPHEN TAB 325 MG TAB PO PRN (19:57)
[2018-04-16 00:13] LABS: Glucose,Whole Blood 98 mg/dL (75-99)
[2018-04-16] MEDS: GABAPENTIN 100 MG CAP PEG/G-TUBE SCH ×2 (04:04→09:03)
[2018-04-16] MEDS: OXcarbazepine 300MG/5ML SUSP 15,000 MG/250 ML BOTTLE PEG/G-TUBE SCH (04:04)
[2018-04-16] MEDS: GABAPENTIN 400 MG CAP PEG/G-TUBE SCH ×2 (04:05→09:03)
[2018-04-16] MEDS: AMANTADINE HCL PEG/G-TUBE SCH (04:05)
[2018-04-16] MEDS: METOPROLOL TARTRATE 25 MG TAB PEG/G-TUBE SCH (05:04)
--- NOTE | 2018-04-16 05:34 | PN ---
PROGRESS NOTE DATE OF SERVICE: 04/15/2018 REASON FOR FOLLOWUP: 1. Pseudomonas catheter associated urinary tract infection. 2. Possible influenza. INTERVAL HISTORY: The patient has been afebrile for the last 48 hours now. Apparently, his fever seemed to respond after the patient was started on the Tamiflu though the negative. The patient is more awake, alert. He is breathing comfortably. Has been tolerating his tube feeds. No nausea or vomiting has been noticed or any diarrhea per the nursing staff. PHYSICAL EXAMINATION: On examination, blood pressure is 110/58 with a pulse of 89, temperature 98.1. He is 94% on room air. General description is a middle-aged male lying in bed in no distress. HEENT examination shows slight pallor. No scleral icterus. Oral mucous membrane is dry. LUNGS: Unlabored breathing, decreased breath sounds in the bases. No wheeze. HEART: S1, S2. Regular rate and rhythm. ABDOMEN: Soft, no tenderness. LABS: Hemoglobin is 11.8, white count 7.9. BUN of 20, creatinine 0.76. Blood and urine culture repeat has been negative. DIAGNOSTIC IMPRESSION AND PLAN: Patient admitted to the hospital with mental status changes with possible component of catheter associated urinary tract infection. Initial was Proteus mirabilis and Pseudomonas aeruginosa that has been adequately treated. Repeat culture has been negative. Patient responded to . Will continue to finish therapy and the Fortaz can be discontinued on discharge. MMODL / IJN: [id number] /
[2018-04-16 06:25] LABS: Glucose,Whole Blood 120 mg/dL (75-99)
[2018-04-16 08:51] LABS: INR 1.1 (<1.2)
[2018-04-16] MEDS: OSELTAMIVIR 75 MG CAP PEG/G-TUBE SCH (09:00)
[2018-04-16] MEDS: BACLOFEN 10 MG TAB PEG/G-TUBE SCH (09:00)
[2018-04-16] MEDS: CHOLECALCIFEROL 1,000 UNIT TAB PEG/G-TUBE SCH (09:00)
[2018-04-16] MEDS: PANTOPRAZOLE SODIUM 40 MG GRANULE PKT PEG/G-TUBE SCH (09:01)
[2018-04-16] MEDS: ASCORBIC ACID 500 MG TAB PEG/G-TUBE SCH (09:01)
[2018-04-16] MEDS: ENOXAPARIN 80 MG/0.8 ML SYRINGE SQ SCH (09:03)
[2018-04-16] MEDS: FERROUS SULFATE ORAL ELIXIR 300 MG/5 ML CUP PEG/G-TUBE SCH (09:03)
[2018-04-16] MEDS: MAGNESIUM OXIDE 400 MG TAB PEG/G-TUBE SCH (09:04)
[2018-04-16] MEDS: MULTIVITAMINS, THERA 1 EACH TAB PO SCH (09:04)
[2018-04-16] MEDS: DOCUSATE ORAL SOLN 100 MG/10 ML CUP PEG/G-TUBE SCH (09:04)
[2018-04-16] MEDS: ACETAMINOPHEN TAB 325 MG TAB PO PRN (09:14)
[2018-04-16 11:47] LABS: Glucose,Whole Blood 141 mg/dL (75-99)
[2018-04-16 14:04] VITALS: BMI 22.9
--- NOTE | 2018-04-16 14:35 | PN ---
PROGRESS NOTE DATE OF SERVICE: 04/16/2018. REASON FOR FOLLOWUP: 1. Catheter associated urinary tract infection. 2. Possible influenza. INTERVAL HISTORY: The patient is afebrile, has been breathing comfortably on room air. He is more awake and alert. Denies any specific symptoms when asked. He has been tolerating his tube feeds and no diarrhea reported. PHYSICAL EXAMINATION: Blood pressure 124/51 with a pulse of 99. Temperature is 99.8. He is 94% on room air. General description is a middle aged male up in the bed in no distress. RESPIRATORY SYSTEM: Unlabored breathing. Clear to auscultation anteriorly. HEART: S1, S2. Regular rate and rhythm. ABDOMEN: Soft, no tenderness. LABS: White count normal as of yesterday at 7.9. Blood and repeat cultures has been negative. DIAGNOSTIC IMPRESSION AND PLAN: 1. Patient with catheter associated urinary tract infection, Pseudomonas and Proteus, adequately treated. Repeat culture has been negative. He received about 8 days of antibiotic therapy. No need for antibiotic on discharge. 2. Patient with possible influenza and has received 9 of the doses so far, should be enough for his underlying influenza. Plan of care was discussed with the attending physician. MMODL / IJN: [id number] /
[2018-04-16] MEDS: IBUPROFEN ORAL SUSP 100 MG/5 ML CUP PO PRN (14:40)
[2018-04-16 15:07] VITALS: BP 134/80; PULSE 94; RESP 19
--- NOTE | 2018-04-16 15:11 | P.DS ---
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 Patient is presently on ceftazidime . Infectious disease is recommending one more day of hospitalization. Unsure the reason but his Coumadin was discontinued patient is on Lovenox patient will be discharged on bridging Lovenox and same dose of Coumadin, bridging can be discontinued once the INR is above 2. 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 Patient received about 10 days of antibiotics here because of which infectious diseases not recommending any antibiotics for above-mentioned organisms. Exam GENERAL: The patient is alert , mental status appears to be at his baseline , HEENT: Pupils are round and equally reacting to light. EOMI. No scleral icterus. No conjunctival pallor. Normocephalic, atraumatic. No pharyngeal erythema. No thyromegaly. CARDIOVASCULAR: S1 and S2 present. No murmurs, rubs, or gallops. -PULMONARY: Chest is clear to auscultation, no wheezing . left basal crackles. -ABDOMEN: Soft, nontender, nondistended, normoactive bowel sounds. No palpable organomegaly. Aggarwal catheter in place with clear urine MUSCULOSKELETAL: No joint swelling or deformity. EXTREMITIES: No cyanosis, clubbing, or pedal edema. -NEUROLOGICAL: No new weakness but does have chronic contractures SKIN: No rashes. 1. Complicated UTI; Patient was on ceftazidime and completed antibiotic therapy and will not require any antibiotics upon discharge 2. Gram-negative sepsis from urinary tract infection - Proteus mirabilis and Pseudomonas, blood cultures are negative. Urine cultures repeat up negative #3 chronic medical debility from chronic contractures. 4. History of MS with elements of altered mental status, 5. AMS most likely Metabolic encephalopathy as above 6. History of dysphagia, 7. Hypertension 8. Chronic DVT, patient is on Lovenox for bridging and Coumadin upon discharge Patient Condition at Discharge: Fair Plan - Discharge Summary New Discharge Prescriptions: New Enoxaparin [Lovenox] 70 mg SQ Q12HR syringe Continue Metoprolol Tartrate [Lopressor] 25 mg PEG/G-TUBE Q12H Magnesium Oxide [Magox 400] 400 mg PEG/G-TUBE DAILY Jevity 1.5 Sherman Liquid 2 can PEG/G-TUBE BID@ Ipratropium-Albuterol Nebulize [Duoneb 0.5 mg-3 mg/3 ml Soln] 3 ml INHALATION RT-Q4H PRN PRN Reason: Shortness Of Breath Gabapentin 250mg/5ml 500 mg PEG/G-TUBE Q6H Ferrous Sulfate Oral Elixir [Feosol Liquid] 300 mg PEG/G-TUBE DAILY Cholecalciferol [Vitamin D3] 1,000 unit PEG/G-TUBE DAILY Docusate Oral Soln [Colace Oral Soln] 100 mg PEG/G-TUBE BID Warfarin [Coumadin] 2.5 mg PEG/G-TUBE DAILY Amantadine 50mg/5ml 100 mg PEG/G-TUBE Q12H Ascorbic Acid [Vitamin C] 250 mg PEG/G-TUBE DAILY guaiFENesin [guaiFENesin Oral Solution] 200 mg PEG/G-TUBE Q6H Scopolamine 1.5MG/72Hr Patch [TransDerm Scop] 1 patch TRANSDERM Q72H Sodium Chloride [[place]] 1 spray EA NOSTRIL Q4H PRN PRN Reason: DRY NARES OXcarbazepine 300MG/5ML SUSP [Trileptal Liquid] 300 mg PEG/G-TUBE Q12H Amino Acids/Protein Hydrolys [Pro-Stat Supplement] 30 ml PEG/G-TUBE DAILY Multivitamins, Thera [Multivitamin (formulary)] 1 tab PO DAILY Jevity 1.5 [place] Liquid 1 can PEG/G-TUBE DAILY@1400 Acetaminophen 500mg/15ml 500 mg PEG/G-TUBE Q6H PRN PRN Reason: Pain Baclofen 5 mg PEG/G-TUBE TID Nexium 20mg Packet 20 mg PEG/G-TUBE DAILY HYDROcodone/APAP 7.5-325MG [[place] 7.5-325] 1 tab PEG/G-TUBE Q4H PRN #18 tab PRN Reason: Pain Discontinued Ciprofloxacin HCl [Cipro] 500 mg PEG/G-TUBE Q12HR Discharge Medication List Ferrous Sulfate Oral Elixir [Feosol Liquid] 300 mg PEG/G-TUBE DAILY 08/07/17 [ History] Gabapentin 250mg/5ml 500 mg PEG/G-TUBE Q6H 08/07/17 [History] Ipratropium-Albuterol Nebulize [Duoneb 0.5 mg-3 mg/3 ml Soln] 3 ml INHALATION RT -Q4H PRN 08/07/17 [History] Jevity 1.5 [place] Liquid 2 can PEG/G-TUBE BID@08/07/17 [History] Magnesium Oxide [Magox 400] 400 mg PEG/G-TUBE DAILY 08/07/17 [History] Metoprolol Tartrate [Lopressor] 25 mg PEG/G-TUBE Q12H 08/07/17 [History] Amantadine 50mg/5ml 100 mg PEG/G-TUBE Q12H 12/28/17 [History] Ascorbic Acid [Vitamin C] 250 mg PEG/G-TUBE DAILY 12/28/17 [History] Cholecalciferol [Vitamin D3] 1,000 unit PEG/G-TUBE DAILY 12/28/17 [History] Docusate Oral Soln [Colace Oral Soln] 100 mg PEG/G-TUBE BID 12/28/17 [History] Scopolamine 1.5MG/72Hr Patch [TransDerm Scop] 1 patch TRANSDERM Q72H 12/28/17 [ History] Sodium Chloride [[place]] 1 spray EA NOSTRIL Q4H PRN 12/28/17 [History] Warfarin [Coumadin] 2.5 mg PEG/G-TUBE DAILY 12/28/17 [History] guaiFENesin [guaiFENesin Oral Solution] 200 mg PEG/G-TUBE Q6H 12/28/17 [History] Acetaminophen 500mg/15ml 500 mg PEG/G-TUBE Q6H PRN 02/15/18 [History] Amino Acids/Protein Hydrolys [Pro-Stat Supplement] 30 ml PEG/G-TUBE DAILY [History] Jevity 1.5 Sherman Liquid 1 can PEG/G-TUBE DAILY@1400 02/15/18 [History] Multivitamins, Thera [Multivitamin (formulary)] 1 tab PO DAILY 02/15/18 [History ] OXcarbazepine 300MG/5ML SUSP [Trileptal Liquid] 300 mg PEG/G-TUBE Q12H 02/15/18 [History] Baclofen 5 mg PEG/G-TUBE TID 04/07/18 [History] Nexium 20mg Packet 20 mg PEG/G-TUBE DAILY 04/07/18 [History] Enoxaparin [Lovenox] 70 mg SQ Q12HR syringe 04/16/18 [Rx] HYDROcodone/APAP 7.5-325MG [[place] 7.5-325] 1 tab PEG/G-TUBE Q4H PRN #18 tab [Rx] Follow up Appointment(s)/Referral(s): Brenden Olivares DO [Primary Care Provider] - 1-2 Days Activity/Diet/Wound Care/Special Instructions: Continue aggarwal care, chronic. Wound care to sacrum, aquacell AG 4x4 and barrier cream daily. Continue tube feeding, Jevity 1.5 at 60ml/hr with water bolus of 145ml q3h. Discharge Disposition: TRANSFER TO SNF/ECF
[2018-04-16 15:57] VITALS: TEMP 97.8
== END 2018-04-16 16:23 | DRG 698 ==
LOC: EC 02:13 → 4MS4W 04:19 → 5MS5E 04-15 20:42
PROVIDERS: ADMIT Hospitalist; ATTEND Hospitalist
DX: T83.518A Infection and inflammatory reaction due to other urinary catheter, initial encounter (principal); A41.52 Sepsis due to Pseudomonas; A41.89 Other specified sepsis; G93.41 Metabolic encephalopathy; J11.00 Influenza due to unidentified influenza virus with unspecified type of pneumonia; N39.0 Urinary tract infection, site not specified; E44.1 Mild protein-calorie malnutrition; E87.1 Hypo-osmolality and hyponatremia; N17.9 Acute kidney failure, unspecified; I82.729 Chronic embolism and thrombosis of deep veins of unspecified upper extremity; Y84.6 Urinary catheterization as the cause of abnormal reaction of the patient, or of later complication, without mention of misadventure at the time of the procedure; F32.9 Major depressive disorder, single episode, unspecified; G35 Multiple sclerosis; G93.89 Other specified disorders of brain; I10 Essential (primary) hypertension; L89.152 Pressure ulcer of sacral region, stage 2; Z74.01 Bed confinement status; Z79.01 Long term (current) use of anticoagulants; Z87.440 Personal history of urinary (tract) infections; Z93.1 Gastrostomy status; Z53.9 Procedure and treatment not carried out, unspecified reason; Z88.1 Allergy status to other antibiotic agents; Z86.14 Personal history of Methicillin resistant Staphylococcus aureus infection; Z79.899 Other long term (current) drug therapy; Z87.01 Personal history of pneumonia (recurrent); R47.1 Dysarthria and anarthria; R13.10 Dysphagia, unspecified; R15.9 Full incontinence of feces; R53.81 Other malaise
CPT/HCPCS: 36415; 70450; 71045; 71046; 76770; 80048; 80053; 80076; 81001; 82550; 82553; 83605; 83735; 84100; 84443; 84484; 85025; 85610; 85730; 87040; 87077; 87086; 87186; 87449; 87502; 93005; 94640; 94760; 95816; 96360; 96361; 99285

== ENCOUNTER → 2018-05-20 | Outpatient (CLI) | payer MEDICARE, OTHER ==
--- NOTE | 2018-05-24 11:09 | MR ---
EXAMINATION TYPE: MR brain wo/w con DATE OF EXAM: 05/20/2018 COMPARISON: Prior MRI from outside institution 10/05/2015 HISTORY: MS TECHNIQUE: Multiplanar, multisequence images of the brain and brainstem is performed without and with IV contras t, utilizing 7 mL intravenous Gadavist . FINDINGS: There is motion on the exam. Diffusion weighted images demonstrate no evidence of a recent infarct or other diffusion abnormality. There is no extra-axial fluid collection or significant inte rval change evident in white matter signal abnormality. Extensive T2 bright signal is present in the periventricular white matter and confluent distribution as on prior exam multiple areas of encephalom alacia compatible with prior infarcts within the polanco radiata, centrum semiovale bilaterally. Middl e cerebellar peduncles show abnormal increased signal and T2 and inversion recovery sequences, there is abnormal increased signal also in the santos similar to prior bilaterally. The ventricular system an d cisternal spaces are stable in size and appearance. The brain volume is age appropriate. Arachnoid cyst is stable at the level of the right cerebellar hemisphere measuring approximately 3.7 cm. There is cortical atrophy. Midline structures demonstrate similar appearance, there is thinning of the corpus callosum, sella sh ows is stable with partially empty appearance, cervical medullary junction is unchanged. Post contra st images demonstrate no abnormal enhancement. The dural venous sinuses appear patent. The visualized sinuses are clear and the globes are intact. IMPRESSION: Allowing for differences in technique, there is no significant interval change. Extensive chronic infarcts, white matter demyelination as on prior exam could be indicative of chronic small v essel ischemia, findings of probable multiple sclerosis show no interval change accounting for differ ences in technique. Motion on the exam.
== END | disposition home or self-care (01) ==
LOC: RADMRIMAIN 08:20
PROVIDERS: ATTEND Nurse Practitioner Acute Care
DX: G37.9 Demyelinating disease of central nervous system, unspecified (principal); I63.9 Cerebral infarction, unspecified; G35 Multiple sclerosis
CPT/HCPCS: 70553; A9581

== ENCOUNTER 2018-05-24 02:28 | Inpatient (IN) | payer MEDICARE, OTHER ==
[2018-05-24] MEDS ORDERED: cefTRIAXone IN SWFI 1,000 MG/10 ML SYRINGE IVP STA (02:40)
[2018-05-24 02:57] LABS: Basophils % (A) 0 %; Eosinophils # (A) 0.2 k/uL (0-0.7); Eosinophils % (A) 1 %; HCT 45.1 % (39.0-53.0); HGB 14.7 gm/dL (13.0-17.5); Lymphocytes # (A) 0.4 k/uL (1.0-4.8); Lymphocytes % (A) 3 %; MCH 28.5 pg (25.0-35.0); MCHC 32.7 g/dL (31.0-37.0); MCV 87.1 fL (80.0-100.0); Mean Platelet Volume 6.9; Monocytes # (A) 0.8 k/uL (0-1.0); Monocytes % (A) 6 %; Neutrophils # (A) 11.5 k/uL (1.3-7.7); Neutrophils % (A) 89 %; Platelet Count 414 k/uL (150-450); RBC 5.17 m/uL (4.30-5.90); WBC 12.9 k/uL (3.8-10.6)
[2018-05-24 03:12] LABS: Creatine Kinase 55 U/L (55-170)
[2018-05-24 03:13] LABS: INR 1.4 (<1.2); Partial Thromboplastin Time 34.1 sec (22.0-30.0); Prothrombin Time 13.4 sec (9.0-12.0)
[2018-05-24 03:14] LABS: ALT 26 U/L (21-72); AST 15 U/L (17-59); Albumin 3.4 g/dL (3.5-5.0); Alkaline Phosphatase 91 U/L (38-126); Anion Gap 12 mmol/L; Blood Urea Nitrogen 21 mg/dL (9-20); Calcium 8.7 mg/dL (8.4-10.2); Carbon Dioxide 22 mmol/L (22-30); Chloride 99 mmol/L (98-107); Glucose 113 mg/dL (74-99); Potassium 4.4 mmol/L (3.5-5.1); Sodium 133 mmol/L (137-145); Total Bilirubin 0.3 mg/dL (0.2-1.3); Total Protein 6.3 g/dL (6.3-8.2)
[2018-05-24] MEDS: SODIUM CHLORIDE 0.9% 500 ML IV SCH ×2 (03:18→05:02)
[2018-05-24 03:24] LABS: Creatine Kinase MB 1.5 ng/mL (0.0-2.4); Troponin I <0.012 ng/mL (0.000-0.034)
--- NOTE | 2018-05-24 03:49 | XR ---
EXAMINATION TYPE: XR chest 1V DATE OF EXAM: 05/24/2018 COMPARISON: 04/11/2018 HISTORY: Chest pain TECHNIQUE: Single frontal view of the chest is obtained. FINDINGS: Heart and mediastinum are normal. There is some mild interstitial density in the right vitaliy g. There is old left-sided healed rib fracture. There are chest leads. There is no heart failure. IMPRESSION: New interstitial mild infiltrate in the right lung compared to old exam. There is cleari ng of the left lower lobe pneumonia compared to old exam. Normal heart.
[2018-05-24 03:53] LABS: Appearance,Urine Turbid (Clear); Bacteria,Urine Moderate /hpf; Bilirubin,Urine Negative (Negative); Blood,Urine Moderate (Negative); Color,Urine Yellow; Glucose,Urine (UA) Negative (Negative); Ketones,Urine Negative (Negative); Leukocyte Esterase,Urine Large (Negative); Mucus,Urine Occasional /hpf; Nitrite,Urine Negative (Negative); Protein,Urine 2+ (Negative); RBC,Urine 174 /hpf (0-5); Specific Gravity,Urine 1.017 (1.001-1.035); Urobilinogen,Urine <2.0 mg/dL (<2.0); WBC,Urine >182 /hpf (0-5)
[2018-05-24] MEDS ORDERED: CLINDAMYCIN 600 MG in DEXTROSE 5% IN WATER 50 ML IVPB STA ×2 (04:30)
[2018-05-24] MEDS ORDERED: AZITHROMYCIN 500 MG in DEXTROSE 5% IN WATER 250 ML IVPB STA ×2 (04:30)
[2018-05-24] MEDS ORDERED: IBUPROFEN 400 MG TAB PO PRN (04:36)
[2018-05-24] MEDS ORDERED: NALOXONE 0.4 MG/ML 1 ML VIAL IV PRN (04:36)
[2018-05-24] MEDS ORDERED: ACETAMINOPHEN TAB 325 MG TAB PO PRN (04:36)
--- NOTE | 2018-05-24 04:49 | ED ---
General Adult HPI - General Chief complaint: Fever Stated complaint: r/o sepsis Time Seen by Provider: 05/24/18 02:40 Source: EMS Mode of arrival: EMS Limitations: language barrier - History of Present Illness Initial comments: Chris is an unfortunate 57-year-old male with very advanced multiple sclerosis who presents to the ER today from the assisted facility where he lives for evaluation of possible sepsis. Caregivers at that facility report that today his Stein catheter was changed, upon the change they did have significant output of urine there was concern that he may have had some obstructive to his previous catheter. They also noted that the urine was very cloudy and malodorous. This evening the patient became tachycardic and was noted to have some low blood pressures, they're concerned he may be septic; 911 for transfer to the hospital. Per caregivers at the facility the patient had a fever of > 103 her to transfer. Patient is able to nod his head yes and no, his responses seem to be appropriate. The patient denies any pain. - Related Data Home Medications Medication Instructions Recorded Confirmed Ferrous Sulfate Oral Elixir 300 mg PEG/G-TUBE DAILY 08/07/17 04/07/18 [Feosol Liquid] Gabapentin 250mg/5ml 500 mg PEG/G-TUBE Q6H 08/07/17 04/07/18 Ipratropium-Albuterol Nebulize 3 ml INHALATION RT-Q4H PRN 08/07/17 04/07/18 [Duoneb 0.5 mg-3 mg/3 ml Soln] Jevity 1.5 Sherman Liquid 2 can PEG/G-TUBE BID@08/07/17 04/07/18 Magnesium Oxide [Magox 400] 400 mg PEG/G-TUBE DAILY 08/07/17 04/07/18 Metoprolol Tartrate [Lopressor] 25 mg PEG/G-TUBE Q12H 08/07/17 04/07/18 Amantadine 50mg/5ml 100 mg PEG/G-TUBE Q12H 12/28/17 04/07/18 Ascorbic Acid [Vitamin C] 250 mg PEG/G-TUBE DAILY 12/28/17 04/07/18 Cholecalciferol [Vitamin D3] 1,000 unit PEG/G-TUBE DAILY 12/28/17 04/07/18 Docusate Oral Soln [Colace Oral 100 mg PEG/G-TUBE BID 12/28/17 04/07/18 Soln] Scopolamine 1.5MG/72Hr Patch 1 patch TRANSDERM Q72H 12/28/17 04/07/18 [TransDerm Scop] Sodium Chloride [[place]] 1 spray EA NOSTRIL Q4H PRN 12/28/17 04/07/18 Warfarin [Coumadin] 2.5 mg PEG/G-TUBE DAILY 12/28/17 04/07/18 guaiFENesin [guaiFENesin Oral 200 mg PEG/G-TUBE Q6H 12/28/17 04/07/18 Solution] Acetaminophen 500mg/15ml 500 mg PEG/G-TUBE Q6H PRN 02/15/18 04/07/18 Amino Acids/Protein Hydrolys 30 ml PEG/G-TUBE DAILY 02/15/18 04/07/18 [Pro-Stat Supplement] Jevity 1.5 Sherman Liquid 1 can PEG/G-TUBE DAILY@1400 02/15/18 04/07/18 Multivitamins, Thera [Multivitamin 1 tab PO DAILY 02/15/18 04/07/18 (formulary)] OXcarbazepine 300MG/5ML SUSP 300 mg PEG/G-TUBE Q12H 02/15/18 04/07/18 [Trileptal Liquid] Baclofen 5 mg PEG/G-TUBE TID 04/07/18 04/07/18 Nexium 20mg Packet 20 mg PEG/G-TUBE DAILY 04/07/18 04/07/18 Previous Rx's Medication Instructions Recorded Enoxaparin [Lovenox] 70 mg SQ Q12HR syringe 04/16/18 HYDROcodone/APAP 7.5-325MG [[place] 1 tab PEG/G-TUBE Q4H PRN #18 tab 04/16/18 7.5-325] Allergies Allergy/AdvReac Type Severity Reaction Status Date / Time meropenem [From Merrem] Allergy Rash/Hives Verified 05/24/18 02:32 Review of Systems ROS Statement: Those systems with pertinent positive or pertinent negative responses have been documented in the HPI. ROS Other: All systems not noted in ROS Statement are negative. Limitations: ROS unobtainable due to patients medical condition Constitutional: Reports: fever Past Medical History Past Medical History: Deep Vein Thrombosis (DVT), Musculoskeletal Disorder, Pneumonia, Renal Disease Additional Past Medical History / Comment(s): MSpt poor historian-cog impariment / Impaired speech, NPO-peg tube,DVT-arm, , IDC ,INCONT OF BOWEL. IDC-UTI'S/ SEPSIS ,HX SACRALWOUND,CONTRACTURES,DYSARTHRIA/ANARTHRIA/DYSPHAGIA. BEDBOUND, RACHEL LIFT TO W/C. History of Any Multi-Drug Resistant Organisms: MRSA Date of last positivie culture/infection: 10/21/17 MDRO Source:: URINE Additional Past Surgical History / Comment(s): PEG TUBE, HX OF GASTROSTOMY, PICC LINE 08/07/17 .REMOVED. NEW PICC LINE PLACED 12-28-16 (RT) Past Anesthesia/Blood Transfusion Reactions: Unable to Obtain Past Psychological History: Depression Smoking Status: Never smoker Past Alcohol Use History: None Reported Past Drug Use History: None Reported - Past Family History Father Family Medical History: Unable to Obtain Mother Family Medical History: Unable to Obtain General Exam Limitations: language barrier General appearance: alert, in distress, other (Bedbound, contracted, cachectic, diaphoretic, ill-appearing) Head exam: Present: normocephalic Eye exam: Present: PERRL ENT exam: Present: mucous membranes dry Neck exam: Absent: lymphadenopathy Respiratory exam: Present: rhonchi Cardiovascular Exam: Present: tachycardia GI/Abdominal exam: Present: soft, other (PEG tube in place) Rectal exam: Present: deferred exam: Present: other (catheter in place) Extremities exam: Present: other (atrophic, contracted ) Neurological exam: Present: alert, other (nonverbal, nods yes/no appropriately ) Skin exam: Present: warm, diaphoretic Course Vital Signs 05/24/18 05/24/18 05/24/18 02:29 03:30 03:36 Temperature 97.3 F L Pulse Rate 109 H 93 Respiratory 20 20 20 Rate Blood Pressure 114/73 103/87 O2 Sat by Pulse 93 L 98 Oximetry EKG Findings - EKG Comments: EKG Findings:: EKG obtained at 3:17 AM, rate is 103, rhythm is sinus, KS 144, QRS 80, QTC 445 no evidence of acute ischemia or infarction. Procedures - Sepsis Sepsis Focused Exam #1 Sepsis Focused Exam Date: 05/24/18 Sepsis Focused Exam Time: 05:06 Sepsis Focused Exam Complete: Yes Vital Signs & RN Notes Reviewed: Yes Capillary Refill: < 2 Seconds: Fingers, Toes Peripheral Pulses: Normal: Radial (R), Radial (L) Skin Color: Normal for Patient Respiratory Exam: rhonchi Cardiovascular Exam: regular rate, normal rhythm Medical Decision Making - Medical Decision Making The patient was seen and evaluated immediately upon arrival to the emergency department. Patient was noted to be tachycardic, tachypneic with oxygen saturation of 88-90%, 2 L supplemental oxygen were applied, full sepsis workup was ordered Rocephin was ordered empirically for a high suspicion of urinary tract infection Labs with multiple abnormalities including leukocytosis Urinalysis consistent with urinary tract infection Culture was obtained Chest x-ray concerning for a right-sided pneumonia, considering the patient's history of dysphasia I do have a high suspicion for aspiration. Clindamycin was added for treatment of possible aspiration pneumonia. IV fluids infusing, tachycardia has improved At this time we will admit the patient for sepsis secondary to possible aspiration pneumonia, as well as urinary tract infection secondary to indwelling urinary catheter - Lab Data Result diagrams: 05/24/18 02:41 05/24/18 02:41 Lab Results 05/24/18 05/24/18 05/24/18 Range/Units 02:41 02:41 02:41 WBC 12.9 H (3.8-10.6) k/uL RBC 5.17 (4.30-5.90) m/uL Hgb 14.7 (13.0-17.5) gm/dL Hct 45.1 (39.0-53.0) % MCV 87.1 (80.0-100.0) fL MCH 28.5 (25.0-35.0) pg MCHC 32.7 (31.0-37.0) g/dL RDW 15.0 (11.5-15.5) % Plt Count 414 (150-450) k/uL Neutrophils % 89 % Lymphocytes % 3 % Monocytes % 6 % Eosinophils % 1 % Basophils % 0 % Neutrophils # 11.5 H (1.3-7.7) k/uL Lymphocytes # 0.4 L (1.0-4.8) k/uL Monocytes # 0.8 (0-1.0) k/uL Eosinophils # 0.2 (0-0.7) k/uL Basophils # 0.0 (0-0.2) k/uL PT (9.0-12.0) sec INR (<1.2) APTT (22.0-30.0) sec Sodium 133 L (137-145) mmol/L Potassium 4.4 (3.5-5.1) mmol/L Chloride 99 (98-107) mmol/L Carbon Dioxide 22 (22-30) mmol/L Anion Gap 12 mmol/L BUN 21 H (9-20) mg/dL Creatinine 0.80 (0.66-1.25) mg/dL Est GFR (CKD-EPI)AfAm >90 (>60 ml/min/1.73 sqM) Est GFR (CKD-EPI)NonAf >90 (>60 ml/min/1.73 sqM) Glucose 113 H (74-99) mg/dL Plasma Lactic Acid [place] 2.5 H* (0.7-2.0) mmol/L Calcium 8.7 (8.4-10.2) mg/dL Total Bilirubin 0.3 (0.2-1.3) mg/dL AST 15 L (17-59) U/L ALT 26 (21-72) U/L Alkaline Phosphatase 91 (38-126) U/L Total Creatine Kinase (55-170) U/L CK-MB (CK-2) (0.0-2.4) ng/mL CK-MB (CK-2) Rel Index Troponin I (0.000-0.034) ng/mL Total Protein 6.3 (6.3-8.2) g/dL Albumin 3.4 L (3.5-5.0) g/dL Urine Color Urine Appearance (Clear) Urine pH (5.0-8.0) Ur Specific [place] (1.001-1.035) Urine Protein (Negative) Urine Glucose (UA) (Negative) Urine Ketones (Negative) Urine Blood (Negative) Urine Nitrite (Negative) Urine Bilirubin (Negative) Urine Urobilinogen (<2.0) mg/dL Ur Leukocyte Esterase (Negative) Urine RBC (0-5) /hpf Urine WBC (0-5) /hpf Urine WBC Clumps (None) /hpf Urine Bacteria (None) /hpf Urine Mucus (None) /hpf 05/24/18 05/24/18 05/24/18 Range/Units 02:41 02:41 03:27 WBC (3.8-10.6) k/uL RBC (4.30-5.90) m/uL Hgb (13.0-17.5) gm/dL Hct (39.0-53.0) % MCV (80.0-100.0) fL MCH (25.0-35.0) pg MCHC (31.0-37.0) g/dL RDW (11.5-15.5) % Plt Count (150-450) k/uL Neutrophils % % Lymphocytes % % Monocytes % % Eosinophils % % Basophils % % Neutrophils # (1.3-7.7) k/uL Lymphocytes # (1.0-4.8) k/uL Monocytes # (0-1.0) k/uL Eosinophils # (0-0.7) k/uL Basophils # (0-0.2) k/uL PT 13.4 H (9.0-12.0) sec INR 1.4 H (<1.2) APTT 34.1 H (22.0-30.0) sec Sodium (137-145) mmol/L Potassium (3.5-5.1) mmol/L Chloride (98-107) mmol/L Carbon Dioxide (22-30) mmol/L Anion Gap mmol/L BUN (9-20) mg/dL Creatinine (0.66-1.25) mg/dL Est GFR (CKD-EPI)AfAm (>60 ml/min/1.73 sqM) Est GFR (CKD-EPI)NonAf (>60 ml/min/1.73 sqM) Glucose (74-99) mg/dL Plasma Lactic Acid [place] (0.7-2.0) mmol/L Calcium (8.4-10.2) mg/dL Total Bilirubin (0.2-1.3) mg/dL AST (17-59) U/L ALT (21-72) U/L Alkaline Phosphatase (38-126) U/L Total Creatine Kinase 55 (55-170) U/L CK-MB (CK-2) 1.5 (0.0-2.4) ng/mL CK-MB (CK-2) Rel Index 2.7 Troponin I <0.012 (0.000-0.034) ng/mL Total Protein (6.3-8.2) g/dL Albumin (3.5-5.0) g/dL Urine Color Yellow Urine Appearance Turbid (Clear) Urine pH 6.0 (5.0-8.0) Ur Specific [place] 1.017 (1.001-1.035) Urine Protein 2+ H (Negative) Urine Glucose (UA) Negative (Negative) Urine Ketones Negative (Negative) Urine Blood Moderate H (Negative) Urine Nitrite Negative (Negative) Urine Bilirubin Negative (Negative) Urine Urobilinogen <2.0 (<2.0) mg/dL Ur Leukocyte Esterase Large H (Negative) Urine RBC 174 H (0-5) /hpf Urine WBC >182 H (0-5) /hpf Urine WBC Clumps Many H (None) /hpf Urine Bacteria Moderate H (None) /hpf Urine Mucus Occasional H (None) /hpf Critical Care Time Critical Care Time: Yes Total Critical Care Time: 30 Critical Care Time: Critical care time was exclusive of separately billable procedures and treating other patients and teaching time. Critical care was necessary to treat or prevent imminent or life-threatening deterioration. Critical care was time spent personally by me on the following activities: development of treatment plan with patient or surrogate, discussions with consultants, discussions with primary provider, evaluation of patient's response to treatment, examination of patient, obtaining history from patient or surrogate, ordering and performing treatments and interventions, ordering and review of laboratory studies, ordering and review of radiographic studies, pulse oximetry, re-evaluation of patient's condition and review of old charts. Disposition Clinical Impression: Aspiration pneumonia, Sepsis, UTI (urinary tract infection) due to urinary indwelling catheter Disposition: ADMITTED IP TO THIS [facility] Condition: Fair Referrals: Brenden Olivares DO [Primary Care Provider] - 1-2 days Decision Time: 05:05
[2018-05-24 07:19] VITALS: BMI 25.1
[2018-05-24] MEDS ORDERED: VANCOMYCIN IV PER PHARMACY 1 EACH MISC MISCELLANE PRN (10:00)
[2018-05-24] MEDS ORDERED: ACETAMINOPHEN ORAL SUSP (PEDS) 3,840 MG/120 ML BOTTLE PEG/G-TUBE PRN (10:01)
[2018-05-24] MEDS ORDERED: VANCOMYCIN 1,250 MG in SODIUM CHLORIDE 0.9% 250 ML IVPB ONE (11:00)
[2018-05-24] MEDS: NON-FORMULARY DRUG (Amino Acids/Protein Hydrolys [Pro-Stat Supplement] 30 ML) PEG/G-TUBE SCH (11:13)
[2018-05-24] MEDS: SCOPOLAMINE 1.5MG/72HR PATCH TRANSDERM SCH (11:13)
[2018-05-24] MEDS: METOPROLOL TARTRATE 25 MG TAB PEG/G-TUBE SCH ×2 (11:13→21:36)
[2018-05-24] MEDS: SENNA LEAF EXTRACT SYRUP 528 MG/15 ML CUP PEG/G-TUBE SCH (11:17)
[2018-05-24] MEDS: SODIUM CHLORIDE 0.9% IRRIGATION SCH ×2 (11:17→19:54)
[2018-05-24] MEDS: OXcarbazepine 300MG/5ML SUSP 15,000 MG/250 ML BOTTLE PEG/G-TUBE SCH ×2 (11:22→19:54)
[2018-05-24] MEDS ORDERED: GABAPENTIN 100 MG CAP PEG/G-TUBE SCH (12:00)
--- NOTE | 2018-05-24 12:01 | P.HPIM ---
History of Present Illness Patient is a pleasant 57-year-old gentleman with history of multiple sclerosis mostly nonverbal came from senior care facility has a multiple contractures was brought in because of the fever sepsis patient has leukocytosis patient has pneumonic infiltrate in the right middle lobe along with the significant abnormal uterine patient has a Stein catheter in place which will be replaced. Patient has enterococcus, Pseudomonas and Proteus in the past patient was given ceftriaxone and kanamycin in ER. Patient does admit his patient was started on Zosyn, vancomycin. Blood cultures sputum cultures were obtained infectious disease will be consulted. Review of Systems Unable to obtain Past Medical History Past Medical History: Deep Vein Thrombosis (DVT), Musculoskeletal Disorder, Pneumonia, Renal Disease Additional Past Medical History / Comment(s): MS, cognitive impariment/ non verbal, NPO-peg tube,DVT-arm , IDC ,INCONT OF BOWEL. DYSARTHRIA/ANARTHRIA/ DYSPHAGIA. BEDBOUND, RACHEL LIFT TO W/C. History of Any Multi-Drug Resistant Organisms: MRSA Date of last positivie culture/infection: 10/21/17 MDRO Source:: URINE Additional Past Surgical History / Comment(s): PEG TUBE, HX OF GASTROSTOMY, PICC LINE Past Anesthesia/Blood Transfusion Reactions: Unable to Obtain Past Psychological History: Depression Additional Psychological History / Comment(s): PT RESIDES AT [facility] [phone] Smoking Status: Never smoker Past Alcohol Use History: None Reported Past Drug Use History: None Reported - Past Family History Father Family Medical History: Unable to Obtain Mother Family Medical History: Unable to Obtain Medications and Allergies Home Medications Medication Instructions Recorded Confirmed Type Ferrous Sulfate Oral Elixir 300 mg PEG/G-TUBE DAILY 08/07/17 05/24/18 History [Feosol Liquid] Gabapentin 250mg/5ml 250 mg PEG/G-TUBE Q6H 08/07/17 05/24/18 History Ipratropium-Albuterol Nebulize 3 ml INHALATION RT-Q4H PRN 08/07/17 05/24/18 History [Duoneb 0.5 mg-3 mg/3 ml Soln] Jevity 1.5 Sherman Liquid 2 can PEG/G-TUBE BID@06,22 08/07/17 05/24/18 History Magnesium Oxide [Magox 400] 400 mg PEG/G-TUBE DAILY 08/07/17 05/24/18 History Metoprolol Tartrate [Lopressor] 25 mg PEG/G-TUBE Q12H 08/07/17 05/24/18 History Amantadine 50mg/5ml 100 mg PEG/G-TUBE Q12H 12/28/17 05/24/18 History Ascorbic Acid [Vitamin C] 250 mg PEG/G-TUBE DAILY 12/28/17 05/24/18 History Cholecalciferol [Vitamin D3] 1,000 unit PEG/G-TUBE DAILY 12/28/17 05/24/18 History Docusate Oral Soln [Colace Oral 100 mg PEG/G-TUBE BID 12/28/17 05/24/18 History Soln] Scopolamine 1.5MG/72Hr Patch 1 patch TRANSDERM Q72H 12/28/17 05/24/18 History [TransDerm Scop] guaiFENesin [guaiFENesin Oral 200 mg PEG/G-TUBE Q6H 12/28/17 05/24/18 History Solution] Acetaminophen 500mg/15ml 500 mg PEG/G-TUBE Q6H PRN 02/15/18 05/24/18 History Jevity 1.5 Sherman Liquid 1 can PEG/G-TUBE DAILY@1400 02/15/18 05/24/18 History Multivitamins, Thera [Multivitamin 1 tab PEG/G-TUBE DAILY 02/15/18 05/24/18 History (formulary)] OXcarbazepine 300MG/5ML SUSP 300 mg PEG/G-TUBE Q12H 02/15/18 05/24/18 History [Trileptal Liquid] Baclofen 5 mg PEG/G-TUBE TID 04/07/18 05/24/18 History Nexium 20mg Packet 20 mg PEG/G-TUBE DAILY 04/07/18 05/24/18 History Amino Acids/Protein Hydrolys 30 ml PEG/G-TUBE DAILY 05/24/18 05/24/18 History [Pro-Stat Supplement] Furosemide [Lasix] 20 mg PEG/G-TUBE DAILY 05/24/18 05/24/18 History Mupirocin 2% Oint [Bactroban 2% 1 applic TOPICAL DAILY 05/24/18 05/24/18 History Oint] Sodium Chloride 0.9% Irrigatio 10 ml IRRIGATION Q12H 05/24/18 05/24/18 History [Saline 0.9% Irrigation] Warfarin [Coumadin] 2.5 mg PEG/G-TUBE DAILY 05/24/18 05/24/18 History carBAMazepine [TEGretol Susp] 100 mg PEG/G-TUBE TID 05/24/18 05/24/18 History Allergies Allergy/AdvReac Type Severity Reaction Status Date / Time meropenem [From Merrem] Allergy Rash/Hives Verified 05/24/18 09:11 Physical Exam Vitals: Vital Signs Temp Pulse Resp BP Pulse Ox 05/24/18 08:08 19 05/24/18 07:00 98.0 F 05/24/18 05:45 100.5 F H 05/24/18 05:35 97.6 F 83 19 115/72 99 05/24/18 03:36 93 20 103/87 98 05/24/18 03:30 20 05/24/18 02:29 97.3 F L 109 H 20 114/73 93 L Intake and Output 05/23/18 05/24/18 05/24/18 22:59 06:59 14:59 Other: Voiding Method Indwelling Catheter Weight 77.111 kg 77.111 kg PHYSICAL EXAMINATION: GENERAL: The patient is alert, nonverbal multiple contractures HEENT: Pupils are round and equally reacting to light. EOMI. No scleral icterus. No conjunctival pallor. Normocephalic, atraumatic. No pharyngeal erythema. No thyromegaly. CARDIOVASCULAR: S1 and S2 present. No murmurs, rubs, or gallops. PULMONARY: Air entry into bilateral lung prater rhonchus breath sounds no wheezing was appreciated ABDOMEN: Soft, nontender, nondistended, normoactive bowel sounds. No palpable organomegaly. Tube in place patient probably has some retained stool in bilateral lower abdominal area Stein catheter in place, there is a decubitus ulcer please refer to nursing documentation for staging. MUSCULOSKELETAL: No joint swelling or deformity. EXTREMITIES: No cyanosis, clubbing, or pedal edema. NEUROLOGICAL: Gross neurological examination did not reveal any new focal deficits. And has muscle atrophy in all 4 limbs bedbound with contractures SKIN: No rashes. Results CBC & Chem 7: 05/24/18 02:41 05/24/18 02:41 Labs: Abnormal Lab Results - Last 24 Hours (Table) 05/24/18 05/24/18 05/24/18 Range/Units 02:41 02:41 02:41 WBC 12.9 H (3.8-10.6) k/uL Neutrophils # 11.5 H (1.3-7.7) k/uL Lymphocytes # 0.4 L (1.0-4.8) k/uL PT (9.0-12.0) sec INR (<1.2) APTT (22.0-30.0) sec Sodium 133 L (137-145) mmol/L BUN 21 H (9-20) mg/dL Glucose 113 H (74-99) mg/dL Plasma Lactic Acid Taurus 2.5 H* (0.7-2.0) mmol/L AST 15 L (17-59) U/L Albumin 3.4 L (3.5-5.0) g/dL Urine Protein (Negative) Urine Blood (Negative) Ur Leukocyte Esterase (Negative) Urine RBC (0-5) /hpf Urine WBC (0-5) /hpf Urine WBC Clumps (None) /hpf Urine Bacteria (None) /hpf Urine Mucus (None) /hpf 05/24/18 05/24/18 Range/Units 02:41 03:27 WBC (3.8-10.6) k/uL Neutrophils # (1.3-7.7) k/uL Lymphocytes # (1.0-4.8) k/uL PT 13.4 H (9.0-12.0) sec INR 1.4 H (<1.2) APTT 34.1 H (22.0-30.0) sec Sodium (137-145) mmol/L BUN (9-20) mg/dL Glucose (74-99) mg/dL Plasma Lactic Acid Taurus (0.7-2.0) mmol/L AST (17-59) U/L Albumin (3.5-5.0) g/dL Urine Protein 2+ H (Negative) Urine Blood Moderate H (Negative) Ur Leukocyte Esterase Large H (Negative) Urine RBC 174 H (0-5) /hpf Urine WBC >182 H (0-5) /hpf Urine WBC Clumps Many H (None) /hpf Urine Bacteria Moderate H (None) /hpf Urine Mucus Occasional H (None) /hpf Thrombosis Risk Factor Assmnt - Choose All That Apply Any of the Below Risk Factors Present?: Yes Each Factor Represents 1 point: Age 41-60 years Each Risk Factor Represents 2 Points: Patient confined to bed Other congenital or acquired thrombophilia - If yes, enter type in comment: No Thrombosis Risk Factor Assessment Total Risk Factor Score: 3 Thrombosis Risk Factor Assessment Level: Moderate Risk Assessment and Plan Plan: -Sepsis: Patient urine is abnormal and chest x-ray did show pneumonic process patient may have both urinary tract infection as well as pneumonia right middle lobe, full he gets will be replaced. Infectious disease will be consulted patient does have decubitus ulcers. Culture from that wound will be obtained as well. Patient was started on vancomycin and Zosyn -Chronic debility from multiple sclerosis -Multiple sclerosis: Continue home medications -Dysphagia patient has a PEG tube in place -Hypertension -History of DVT patient is on anticoagulation with Coumadin which will be continued patient does have atrial fibrillation as well since patient's DVT was long time ago will not bridge patient is subtherapeutic and INR repeat INR will be obtained tomorrow.
[2018-05-24] MEDS: guaiFENesin SYRUP 100MG/5ML 200 MG/10 ML CUP PEG/G-TUBE SCH ×2 (13:20→17:37)
[2018-05-24] MEDS: PIPERACILLIN-TAZOBACTAM 3.375 GM in DEXTROSE/WATER 1 50ML.BAG IVPB SCH ×2 (13:21→15:41)
[2018-05-24] MEDS: GABAPENTIN 250 MG/5 ML PO SCH ×2 (13:58→15:42)
[2018-05-24] MEDS ORDERED: NON-FORMULARY DRUG (Jevity 1.5 Cal Liquid 1 CAN) PEG/G-TUBE SCH (14:00)
[2018-05-24] MEDS: BACLOFEN 10 MG TAB PEG/G-TUBE SCH ×2 (16:11→21:36)
[2018-05-24] MEDS: IPRATROPIUM-ALBUTEROL 3 ML NEB INHALATION PRN ×2 (16:17→20:04)
[2018-05-24] MEDS: VANCOMYCIN 1,250 MG in SODIUM CHLORIDE 0.9% 250 ML IVPB SCH (17:36)
[2018-05-24] MEDS: WARFARIN 2.5 MG TAB PEG/G-TUBE SCH (17:37)
--- NOTE | 2018-05-24 18:26 | CONS ---
CONSULTATION DATE OF SERVICE: 05/24/2018. REASON FOR CONSULTATION: Sepsis. 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 The patient has been brought into the [facility] ER early this morning for fever and possible sepsis. Apparently the caregivers at that facility reported that before bringing the patient to the hospital, his Stein catheter was changed and did have significant output of urine. They were concerned that he may have some obstruction to his previous catheter. Urine was getting very cloudy and malodorous. The patient was noticed to be tachycardic and did have fever 103 Fahrenheit. Subsequently, patient has been transferred to the [facility] ER for further evaluation of the same. On arrival to the ER, the patient did have a low-grade fever 100.5. The patient's white count was elevated 12.9. Lactic acid was 2.5. Urine was cloudy with moderate blood, large leukocyte esterases and more than 1-2 WBC. The patient also has a chest x-ray obtained, which shows new interstitial and mild infiltrate in the right lung. On repeat exam, clearing of the left lower lobe pneumonia comparable exam. The patient has been started on broad- spectrum antibiotics. Infectious Disease was consulted for further recommendation regarding antibiotic therapy. Most of the information has been obtained from prior review of the chart and and taking to the nursing staff as the patient is unable to provide any reliable history because of underlying clinical condition. REVIEW OF SYSTEMS: Could not be reliably obtained. The positive points have been mentioned in HPI. PAST MEDICAL HISTORY: Significant for multiple sclerosis, bed-bound state, urinary retention requiring Stein catheter, stage III sacral wound that seems to have healed, cognitive impairment and DVT. PAST SURGICAL HISTORY: PEG placement and subsequent removal. SOCIAL HISTORY: Currently a resident of [facility]. No history of smoking, drinking, or drug use. FAMILY HISTORY: No pertinent findings noticed. ALLERGIES: MEROPENEM, documented in the chart; however, the patient has tolerated penicillin without any problem. MEDICATION: Currently the patient is on Tylenol, albuterol, ascorbic acid, Baclofen, Tegretol, vitamin D3, Colace, Robitussin, Motrin, Theragran, Mag oxide, Lopressor, Bactroban ointment, Narcan, Neurontin, Trileptal, Zosyn 3.375 g q.8h, scopolamine patch, Vancomycin and Coumadin. EXAMINATION: Blood pressure is 115/72 with a pulse of 83. Temperature of 100.5. He is 99% on 2 L nasal cannula. General description is a middle-aged male lying in bed in no distress. No tachypnea or accessory muscle of respiration use. HEENT: Shows no pallor or scleral icterus. Oral mucosa is dry. No pharyngeal erythema or thrush. NECK: Trachea central. No thyromegaly. LUNGS: Unlabored breathing. Coarse breath sounds bilaterally. No wheeze. HEART: S1, S2. Regular rate and rhythm. ABDOMEN: Soft, no tenderness. No guarding, no rigidity. EXTREMITIES: No edema feet. SKIN EXAMINATION: No rashes or mass palpable. On examination the sacral area the previously stage III wound has healed up with no evidence of any cellulitis. NEUROLOGICAL: The patient is currently awake, alert. Orientation could not be determined because of underlying cognitive impairment. LABS: Hemoglobin is 14.7, white count of 12.9, BUN of 21, creatinine 0.80. Electrolytes has been normal. Lactic acid was 2.5. Liver enzymes are normal. UA has been positive as mentioned above. Cultures currently pending. Chest x-ray report as mentioned above. DIAGNOSTIC IMPRESSION AND PLAN: Patient hospital with sepsis in a patient who did have a fever of 103 degrees Fahrenheit. The patient was tachycardic and did have elevated white count. Source is more likely catheter associated urinary tract infection and the patient seemed to have a possibly blocked previous catheter that has been just changed at the [facility] with significantly more foul-smelling urine. However, the patient also noticed to have a congested cough with elevated right midlung and concern for possible aspiration pneumonia not entirely excluded. In view of the patient being in and out of the hospital and being exposed to antibiotics and has been colonized and infected with multiple possible pathogens will need to cover for the resistant gram-negative such as Pseudomonas and gram-positive, which is MRSA. PLAN: 1. We will try to obtain sputum for Gram stain culture and sensitivity. 2. Vancomycin pharmacy to dose target of 15 while watching his kidney function closely. 3. Zosyn 3.375 g q.8 hours. 4. IV fluid. 5. Frequent changes of position. 6. We will follow up on his clinical condition and culture to further adjust medication if needed. Thank you for this consultation. Will follow this patient along with you. CHARLOTTE / ARMANDON: [id number] /
[2018-05-24] MEDS: DOCUSATE ORAL SOLN 100 MG/10 ML CUP PEG/G-TUBE SCH (19:55)
[2018-05-24] MEDS: AMANTADINE HCL PEG/G-TUBE SCH (19:55)
[2018-05-24] MEDS ORDERED: JEVITY CAL PEG/G-TUBE SCH (22:00)
[2018-05-25] MEDS: guaiFENesin SYRUP 100MG/5ML 200 MG/10 ML CUP PEG/G-TUBE SCH ×5 (00:09→23:34)
[2018-05-25] MEDS: PIPERACILLIN-TAZOBACTAM 3.375 GM in DEXTROSE/WATER 1 50ML.BAG IVPB SCH ×4 (00:09→23:34)
[2018-05-25] MEDS: GABAPENTIN 250 MG/5 ML PO SCH ×4 (00:43→17:34)
[2018-05-25] MEDS: VANCOMYCIN 1,250 MG in SODIUM CHLORIDE 0.9% 250 ML IVPB SCH ×2 (05:18→17:34)
[2018-05-25 07:34] LABS: HCT 36.2 % (39.0-53.0); HGB 11.8 gm/dL (13.0-17.5); MCHC 32.5 g/dL (31.0-37.0); MCV 89.2 fL (80.0-100.0); Mean Platelet Volume 7.2; Platelet Count 324 k/uL (150-450); RBC 4.06 m/uL (4.30-5.90); RDW 15.2 % (11.5-15.5); WBC 8.8 k/uL (3.8-10.6)
[2018-05-25 07:43] LABS: INR 2.5 (<1.2); Prothrombin Time 22.6 sec (9.0-12.0)
[2018-05-25 07:44] LABS: ALT 22 U/L (21-72); AST 16 U/L (17-59); Albumin 2.7 g/dL (3.5-5.0); Alkaline Phosphatase 70 U/L (38-126); Anion Gap 7 mmol/L; Blood Urea Nitrogen 15 mg/dL (9-20); Calcium 8.4 mg/dL (8.4-10.2); Carbon Dioxide 23 mmol/L (22-30); Chloride 107 mmol/L (98-107); Glucose 103 mg/dL (74-99); Potassium 4.4 mmol/L (3.5-5.1); Sodium 137 mmol/L (137-145); Total Bilirubin 0.4 mg/dL (0.2-1.3); Total Protein 5.7 g/dL (6.3-8.2)
[2018-05-25] MEDS: IPRATROPIUM-ALBUTEROL 3 ML NEB INHALATION PRN ×2 (07:55→11:53)
[2018-05-25] MEDS: MUPIROCIN 2% OINT 22 GM TUBE TOPICAL SCH (08:59)
[2018-05-25] MEDS: OXcarbazepine 300MG/5ML SUSP 15,000 MG/250 ML BOTTLE PEG/G-TUBE SCH ×2 (08:59→19:47)
[2018-05-25] MEDS: SENNA LEAF EXTRACT SYRUP 528 MG/15 ML CUP PEG/G-TUBE SCH ×2 (09:00→09:35)
[2018-05-25] MEDS: DOCUSATE ORAL SOLN 100 MG/10 ML CUP PEG/G-TUBE SCH ×3 (09:01→19:47)
[2018-05-25] MEDS: METOPROLOL TARTRATE 25 MG TAB PEG/G-TUBE SCH ×2 (09:01→21:48)
[2018-05-25] MEDS: ASCORBIC ACID 500 MG TAB PEG/G-TUBE SCH (09:01)
[2018-05-25] MEDS: AMANTADINE HCL PEG/G-TUBE SCH ×2 (09:01→19:47)
[2018-05-25] MEDS: BACLOFEN 10 MG TAB PEG/G-TUBE SCH ×3 (09:01→21:48)
[2018-05-25] MEDS: NON-FORMULARY DRUG (Amino Acids/Protein Hydrolys [Pro-Stat Supplement] 30 ML) PEG/G-TUBE SCH (09:02)
[2018-05-25] MEDS: MAGNESIUM OXIDE 400 MG TAB PEG/G-TUBE SCH (09:02)
[2018-05-25] MEDS: CHOLECALCIFEROL 1,000 UNIT TAB PEG/G-TUBE SCH (09:02)
[2018-05-25] MEDS: SODIUM CHLORIDE 0.9% IRRIGATION SCH ×2 (09:03→19:48)
[2018-05-25] MEDS: NEXIUM 20 MG PEG/G-TUBE SCH (09:03)
[2018-05-25] MEDS: MULTIVITAMINS, THERA LIQUID 237 ML BOTTLE PEG/G-TUBE SCH (12:00)
--- NOTE | 2018-05-25 15:04 | P.PN ---
Subjective Progress Note Date: 05/25/18 Patient is a pleasant 57-year-old gentleman with history of multiple sclerosis mostly nonverbal came from detention facility has a multiple contractures was brought in because of the fever sepsis patient has leukocytosis patient has pneumonic infiltrate in the right middle lobe along with the significant abnormal urine patient has a Stein catheter in place which will be replaced. Patient has enterococcus, Pseudomonas and Proteus in the past patient was given ceftriaxone and kanamycin in ER. Patient does admit his patient was started on Zosyn, vancomycin. Blood cultures sputum cultures were obtained infectious disease will be consulted. Objective - Vital Signs Vital signs: Vital Signs Temp 99.1 F 05/25/18 05:00 Pulse 84 05/25/18 12:05 Resp 16 05/25/18 05:00 BP 111/43 05/25/18 05:00 Pulse Ox 96 05/25/18 05:00 Intake & Output 05/24/18 05/25/18 05/25/18 18:59 06:59 18:59 Intake Total 600 500 300 Output Total 100 750 Balance 500 -250 300 Weight 77.111 kg 77.111 kg Intake: Intake, IV Titration 600 500 300 Amount Azithromycin 500 mg In 250 Dextrose 5% in Water 250 ml @ 125 mls/hr IVPB ONCE STA Rx#:[id number] Clindamycin 600 mg In 50 Dextrose 5% in Water 50 ml @ 100 mls/hr IVPB ONCE STA Rx#:[id number] Piperacillin-Tazobactam 3 50 50 .375 gm In Dextrose/Water 1 50ml.bag @ 12.5 mls/hr IVPB Q8HR [facility] Rx#: [id number] Vancomycin 1,250 mg In 250 Sodium Chloride 0.9% 250 ml @ 125 mls/hr IVPB ONCE ONE Rx#:[id number] Vancomycin 1,250 mg In 250 250 250 Sodium Chloride 0.9% 250 ml @ 125 mls/hr IVPB Q12H [facility] Rx#:[id number] Output: Urine 100 750 Uretheral (Stein) 100 750 Other: Voiding Method Indwelling Catheter Indwelling Catheter Indwelling Catheter - Exam GENERAL: The patient is alert, nonverbal multiple contractures HEENT: Pupils are round and equally reacting to light. EOMI. No scleral icterus. No conjunctival pallor. Normocephalic, atraumatic. No pharyngeal erythema. No thyromegaly. CARDIOVASCULAR: S1 and S2 present. No murmurs, rubs, or gallops. PULMONARY: Air entry into bilateral lung prater rhonchus breath sounds no wheezing was appreciated ABDOMEN: Soft, nontender, nondistended, normoactive bowel sounds. No palpable organomegaly. Tube in place patient probably has some retained stool in bilateral lower abdominal area Stein catheter in place, there is a decubitus ulcer please refer to nursing documentation for staging. MUSCULOSKELETAL: No joint swelling or deformity. EXTREMITIES: No cyanosis, clubbing, or pedal edema. NEUROLOGICAL: Gross neurological examination did not reveal any new focal deficits. And has muscle atrophy in all 4 limbs bedbound with contractures SKIN: No rashes. - Labs CBC & Chem 7: 05/25/18 07:00 05/25/18 07:00 Labs: Abnormal Lab Results - Last 24 Hours (Table) 05/25/18 05/25/18 05/25/18 Range/Units 07:00 07:00 07:00 RBC 4.06 L (4.30-5.90) m/uL Hgb 11.8 L (13.0-17.5) gm/dL Hct 36.2 L (39.0-53.0) % PT 22.6 H (9.0-12.0) sec INR 2.5 H (<1.2) Glucose 103 H (74-99) mg/dL AST 16 L (17-59) U/L Total Protein 5.7 L (6.3-8.2) g/dL Albumin 2.7 L (3.5-5.0) g/dL Microbiology - Last 24 Hours (Table) 05/24/18 02:41 Blood Culture - Preliminary Blood No Growth after 24 hours 05/24/18 03:27 Urine Culture - Preliminary Urine,Voided Assessment and Plan Assessment: -Sepsis: Patient urine is abnormal and chest x-ray did show pneumonic process patient may have both urinary tract infection as well as pneumonia right middle lobe, full he gets will be replaced. Infectious disease will be consulted patient does have decubitus ulcers. Culture from that wound will be obtained as well. Patient was started on vancomycin and Zosyn -Chronic debility from multiple sclerosis -Multiple sclerosis: Continue home medications -Dysphagia patient has a PEG tube in place -Hypertension -History of DVT patient is on anticoagulation with Coumadin which will be continued patient does have atrial fibrillation as well since patient's DVT was long time ago will not bridge patient is subtherapeutic and INR repeat INR will be obtained tomorrow. Time with Patient: Greater than 30
[2018-05-25] MEDS: WARFARIN 2.5 MG TAB PEG/G-TUBE SCH (17:35)
[2018-05-26] MEDS: GABAPENTIN 250 MG/5 ML PO SCH ×5 (00:19→23:39)
[2018-05-26] MEDS ORDERED: VANCOMYCIN TROUGH DUE 1 EACH MISC MISCELLANE ONE (05:00)
[2018-05-26] MEDS: guaiFENesin SYRUP 100MG/5ML 200 MG/10 ML CUP PEG/G-TUBE SCH ×4 (05:16→23:37)
[2018-05-26 05:45] LABS: Basophils % (A) 0 %; Eosinophils # (A) 0.5 k/uL (0-0.7); Eosinophils % (A) 8 %; HCT 35.1 % (39.0-53.0); HGB 11.4 gm/dL (13.0-17.5); Lymphocytes # (A) 1.1 k/uL (1.0-4.8); Lymphocytes % (A) 16 %; MCH 28.9 pg (25.0-35.0); MCHC 32.4 g/dL (31.0-37.0); MCV 89.4 fL (80.0-100.0); Mean Platelet Volume 7.2; Monocytes # (A) 0.5 k/uL (0-1.0); Monocytes % (A) 8 %; Neutrophils # (A) 4.5 k/uL (1.3-7.7); Neutrophils % (A) 66 %; Platelet Count 356 k/uL (150-450); RBC 3.93 m/uL (4.30-5.90); RDW 15.2 % (11.5-15.5); WBC 6.9 k/uL (3.8-10.6)
[2018-05-26] MEDS: VANCOMYCIN 1,250 MG in SODIUM CHLORIDE 0.9% 250 ML IVPB SCH (05:46)
[2018-05-26 05:49] LABS: INR 2.5 (<1.2); Prothrombin Time 22.2 sec (9.0-12.0)
[2018-05-26 06:03] LABS: Anion Gap 8 mmol/L; Blood Urea Nitrogen 14 mg/dL (9-20); Calcium 8.5 mg/dL (8.4-10.2); Carbon Dioxide 22 mmol/L (22-30); Chloride 108 mmol/L (98-107); Glucose 127 mg/dL (74-99); Potassium 4.2 mmol/L (3.5-5.1); Sodium 138 mmol/L (137-145)
[2018-05-26] MEDS: PIPERACILLIN-TAZOBACTAM 3.375 GM in DEXTROSE/WATER 1 50ML.BAG IVPB SCH ×3 (09:48→23:40)
[2018-05-26] MEDS: OXcarbazepine 300MG/5ML SUSP 15,000 MG/250 ML BOTTLE PEG/G-TUBE SCH ×2 (09:52→20:21)
[2018-05-26] MEDS: SENNA LEAF EXTRACT SYRUP 528 MG/15 ML CUP PEG/G-TUBE SCH (09:54)
[2018-05-26] MEDS: MULTIVITAMINS, THERA LIQUID 237 ML BOTTLE PEG/G-TUBE SCH (09:54)
[2018-05-26] MEDS: DOCUSATE ORAL SOLN 100 MG/10 ML CUP PEG/G-TUBE SCH ×2 (09:55→20:20)
[2018-05-26] MEDS: AMANTADINE HCL PEG/G-TUBE SCH ×2 (09:55→20:20)
[2018-05-26] MEDS: BACLOFEN 10 MG TAB PEG/G-TUBE SCH ×3 (09:56→23:36)
[2018-05-26] MEDS: ASCORBIC ACID 500 MG TAB PEG/G-TUBE SCH (09:57)
[2018-05-26] MEDS: CHOLECALCIFEROL 1,000 UNIT TAB PEG/G-TUBE SCH (09:57)
[2018-05-26] MEDS: MUPIROCIN 2% OINT 22 GM TUBE TOPICAL SCH (09:58)
[2018-05-26] MEDS: MAGNESIUM OXIDE 400 MG TAB PEG/G-TUBE SCH (09:58)
[2018-05-26] MEDS: METOPROLOL TARTRATE 25 MG TAB PEG/G-TUBE SCH ×2 (09:58→20:21)
[2018-05-26] MEDS: SODIUM CHLORIDE 0.9% IRRIGATION SCH ×2 (09:59→20:22)
[2018-05-26] MEDS: NEXIUM 20 MG PEG/G-TUBE SCH (09:59)
[2018-05-26] MEDS: NON-FORMULARY DRUG (Amino Acids/Protein Hydrolys [Pro-Stat Supplement] 30 ML) PEG/G-TUBE SCH (10:00)
--- NOTE | 2018-05-26 14:28 | P.PN ---
Subjective Progress Note Date: 05/26/18 Patient is a pleasant 57-year-old gentleman with history of multiple sclerosis mostly nonverbal came from snf facility has a multiple contractures was brought in because of the fever sepsis patient has leukocytosis patient has pneumonic infiltrate in the right middle lobe along with the significant abnormal urine patient has a Stein catheter in place which will be replaced. Patient has enterococcus, Pseudomonas and Proteus in the past patient was given ceftriaxone and kanamycin in ER. Patient does admit his patient was started on Zosyn, vancomycin. Blood cultures sputum cultures were obtained infectious disease will be consulted. 05/26/2018 Patient is seen and evaluated in the room at bedside; patient remains nonverbal but does not seem to be in any acute distress; vital signs remained stable with a temperature of 98.8 and a blood pressure 139/84 labs are reviewed within normal white blood count of 6.9 and hemoglobin stable at 11.4; INR remains therapeutic at 2.5 IDs recommending to continue IV vancomycin and Zosyn; frequent changes of position and recommended Further recommendations pending clinical course of patient Objective - Vital Signs Vital signs: Vital Signs Temp 98.8 F 05/26/18 05:00 Pulse 96 05/26/18 05:00 Resp 16 05/26/18 09:30 BP 139/84 05/26/18 05:00 Pulse Ox 92 L 05/26/18 05:00 Intake & Output 05/25/18 05/26/18 05/26/18 18:59 06:59 18:59 Intake Total 300 Output Total 700 1300 Balance -400 -1300 Weight 69 kg Intake: Intake, IV Titration 300 Amount Piperacillin-Tazobactam 3 50 .375 gm In Dextrose/Water 1 50ml.bag @ 12.5 mls/hr IVPB Q8HR [facility] Rx#: [id number] Vancomycin 1,250 mg In 250 Sodium Chloride 0.9% 250 ml @ 125 mls/hr IVPB Q12H [facility] Rx#:[id number] Output: Urine 700 1300 Other: Voiding Method Indwelling Catheter Indwelling Catheter Indwelling Catheter - Exam GENERAL: The patient is alert, nonverbal multiple contractures HEENT: Pupils are round and equally reacting to light. EOMI. No scleral icterus. No conjunctival pallor. Normocephalic, atraumatic. No pharyngeal erythema. No thyromegaly. CARDIOVASCULAR: S1 and S2 present. No murmurs, rubs, or gallops. PULMONARY: Air entry into bilateral lung prater rhonchus breath sounds no wheezing was appreciated ABDOMEN: Soft, nontender, nondistended, normoactive bowel sounds. No palpable organomegaly. Tube in place patient probably has some retained stool in bilateral lower abdominal area Stein catheter in place, there is a decubitus ulcer please refer to nursing documentation for staging. MUSCULOSKELETAL: No joint swelling or deformity. EXTREMITIES: No cyanosis, clubbing, or pedal edema. NEUROLOGICAL: Gross neurological examination did not reveal any new focal deficits. And has muscle atrophy in all 4 limbs bedbound with contractures SKIN: No rashes. - Labs CBC & Chem 7: 05/26/18 05:22 05/26/18 05:22 Labs: Abnormal Lab Results - Last 24 Hours (Table) 05/26/18 05/26/18 05/26/18 Range/Units 05:22 05:22 05:22 RBC 3.93 L (4.30-5.90) m/uL Hgb 11.4 L (13.0-17.5) gm/dL Hct 35.1 L (39.0-53.0) % PT 22.2 H (9.0-12.0) sec INR 2.5 H (<1.2) Chloride 108 H (98-107) mmol/L Glucose 127 H (74-99) mg/dL Microbiology - Last 24 Hours (Table) 05/24/18 03:27 Urine Culture - Final Urine,Voided 05/24/18 02:41 Blood Culture - Preliminary Blood No Growth after 48 hours Assessment and Plan Assessment: -Sepsis: Patient urine is abnormal and chest x-ray did show pneumonic process patient may have both urinary tract infection as well as pneumonia right middle lobe, full he gets will be replaced. Infectious disease will be consulted patient does have decubitus ulcers. Culture from that wound will be obtained as well. Patient was started on vancomycin and Zosyn -Chronic debility from multiple sclerosis -Multiple sclerosis: Continue home medications -Dysphagia patient has a PEG tube in place -Hypertension -History of DVT patient is on anticoagulation with Coumadin which will be continued patient does have atrial fibrillation as well since patient's DVT was long time ago will not bridge patient is subtherapeutic and INR repeat INR will be obtained tomorrow. Time with Patient: Greater than 30
[2018-05-26] MEDS: WARFARIN 2.5 MG TAB PEG/G-TUBE SCH (17:37)
[2018-05-26] MEDS ORDERED: VANCOMYCIN 1,000 MG in SODIUM CHLORIDE 0.9% 250 ML IVPB SCH (18:00)
[2018-05-27] MEDS: GABAPENTIN 250 MG/5 ML PO SCH ×4 (04:12→23:53)
[2018-05-27] MEDS: guaiFENesin SYRUP 100MG/5ML 200 MG/10 ML CUP PEG/G-TUBE SCH ×3 (05:44→18:05)
--- NOTE | 2018-05-27 06:27 | PN ---
PROGRESS NOTE DATE OF SERVICE: 05/26/2018. REASON FOR FOLLOWUP: Sepsis, catheter-associated urinary tract infection and pneumonia. INTERVAL HISTORY: The patient is afebrile. He seems to be breathing more comfortably. He remains to be nonverbal and unable to provide any history. No nausea or vomiting has been noticed by the nursing staff. EXAMINATION: Blood pressure 147/87, pulse of 73, temperature 98.5. He is 95% on room air. General description is an elderly male lying in bed in no distress. RESPIRATORY SYSTEM: Unlabored breathing with decreased breath sounds. No wheeze. HEART: S1, S2. Regular rate and rhythm. ABDOMEN: Soft, no tenderness. LABS: White count was 22.7, BUN of 14, creatinine 0.90. Hemoglobin is 11.4, white count 6.9. Blood and urine cultures have been negative so far. DIAGNOSTIC IMPRESSION AND PLAN: Patient admitted to the hospital with sepsis, concern for catheter-associated urinary tract infection and possibly aspiration pneumonia. So far, urine cultures negative. We will repeat a chest x-ray tomorrow. Keep the patient on Zosyn and discontinue vancomycin with the following antibiotic on discharge depending upon the x-ray report. Continue supportive care. MMODL / IJN: [id number] /
[2018-05-27 07:43] LABS: INR 1.5 (<1.2); Prothrombin Time 13.7 sec (9.0-12.0)
[2018-05-27] MEDS: SENNA LEAF EXTRACT SYRUP 528 MG/15 ML CUP PEG/G-TUBE SCH (08:36)
[2018-05-27] MEDS: CHOLECALCIFEROL 1,000 UNIT TAB PEG/G-TUBE SCH (08:37)
[2018-05-27] MEDS: OXcarbazepine 300MG/5ML SUSP 15,000 MG/250 ML BOTTLE PEG/G-TUBE SCH ×2 (08:37→20:59)
[2018-05-27] MEDS: METOPROLOL TARTRATE 25 MG TAB PEG/G-TUBE SCH ×2 (08:37→20:58)
[2018-05-27] MEDS: AMANTADINE HCL PEG/G-TUBE SCH ×2 (08:37→20:55)
[2018-05-27] MEDS: BACLOFEN 10 MG TAB PEG/G-TUBE SCH ×3 (08:37→23:44)
[2018-05-27] MEDS: DOCUSATE ORAL SOLN 100 MG/10 ML CUP PEG/G-TUBE SCH ×2 (08:37→20:57)
[2018-05-27] MEDS: ASCORBIC ACID 500 MG TAB PEG/G-TUBE SCH (08:37)
[2018-05-27] MEDS: MAGNESIUM OXIDE 400 MG TAB PEG/G-TUBE SCH (08:38)
[2018-05-27] MEDS: PIPERACILLIN-TAZOBACTAM 3.375 GM in DEXTROSE/WATER 1 50ML.BAG IVPB SCH ×3 (08:38→23:44)
[2018-05-27] MEDS: NON-FORMULARY DRUG (Amino Acids/Protein Hydrolys [Pro-Stat Supplement] 30 ML) PEG/G-TUBE SCH (08:39)
[2018-05-27] MEDS: NEXIUM 20 MG PEG/G-TUBE SCH (08:39)
[2018-05-27] MEDS: MUPIROCIN 2% OINT 22 GM TUBE TOPICAL SCH (08:42)
--- NOTE | 2018-05-27 11:35 | XR ---
EXAMINATION TYPE: XR chest 1V portable DATE OF EXAM: 05/27/2018 HISTORY: Shortness of breath. COMPARISON: May 24, 2018 TECHNIQUE: Single view of the chest is submitted. FINDINGS: Demonstrated are scattered senescent parenchymal change. Increased density right lower lobe may reflect atelectasis or developing infiltrate. Correlate clinic ally and progress studies are advised. The heart is stable. Hilar and mediastinal structures are within normal limits. Degenerative changes are seen of the dorsal spine. Healed left-sided rib fractures noted. IMPRESSION: 1. Increased density right lower lobe may reflect atelectasis or developing infiltrate. Correlate cl inically and progress studies are advised.
[2018-05-27] MEDS: MULTIVITAMINS, THERA LIQUID 237 ML BOTTLE PEG/G-TUBE SCH (12:14)
[2018-05-27] MEDS: SCOPOLAMINE 1.5MG/72HR PATCH TRANSDERM SCH (12:27)
[2018-05-27] MEDS: SODIUM CHLORIDE 0.9% IRRIGATION SCH ×2 (12:58→21:00)
[2018-05-27] MEDS: WARFARIN 2.5 MG TAB PEG/G-TUBE SCH (18:05)
--- NOTE | 2018-05-27 22:18 | PN ---
PROGRESS NOTE DATE OF SERVICE: 05/27/2018. REASON FOR FOLLOWUP: Catheter-associated urinary tract infection, possible aspiration pneumonia. INTERVAL HISTORY: The patient is afebrile. He seems to be breathing more comfortably. No nausea or vomiting has been noted. He did have congestion. No diarrhea. EXAMINATION: Blood pressure 139/93 with a pulse of 70, temperature 98.5. He is 97% on room air. GENERAL DESCRIPTION: A middle-aged male lying in bed in no distress. RESPIRATORY SYSTEM: Unlabored breathing with decreased breath sounds in the bases. No wheeze. HEART: S1, S2. Regular rate and rhythm. ABDOMEN: Soft, no tenderness. EXTREMITIES: No edema of the feet. LABS: Hemoglobin 11.4, white count 6.9, BUN of 14, creatinine 0.90. DIAGNOSTIC IMPRESSION AND PLAN: Patient admitted to the hospital with sepsis, concern for possible catheterization- associated urinary tract infection and pneumonia. Urine culture came back negative. Chest x-ray did show evidence of a right lower lobe pneumonia, possible aspiration etiology. The patient is on Zosyn, that will be transitioned to Avelox 400 daily for a week. Continue supportive care. MMODL / IJN: [id number] /
[2018-05-28] MEDS: guaiFENesin SYRUP 100MG/5ML 200 MG/10 ML CUP PEG/G-TUBE SCH ×3 (00:26→12:46)
[2018-05-28] MEDS: GABAPENTIN 250 MG/5 ML PO SCH ×2 (05:41→12:55)
[2018-05-28 07:57] VITALS: RESP 20
[2018-05-28 08:17] LABS: INR 1.3 (<1.2); Prothrombin Time 12.2 sec (9.0-12.0)
[2018-05-28] MEDS: PIPERACILLIN-TAZOBACTAM 3.375 GM in DEXTROSE/WATER 1 50ML.BAG IVPB SCH (09:04)
[2018-05-28] MEDS: OXcarbazepine 300MG/5ML SUSP 15,000 MG/250 ML BOTTLE PEG/G-TUBE SCH (09:05)
[2018-05-28] MEDS: SENNA LEAF EXTRACT SYRUP 528 MG/15 ML CUP PEG/G-TUBE SCH (09:07)
[2018-05-28] MEDS: DOCUSATE ORAL SOLN 100 MG/10 ML CUP PEG/G-TUBE SCH (09:08)
[2018-05-28] MEDS: BACLOFEN 10 MG TAB PEG/G-TUBE SCH (09:08)
[2018-05-28] MEDS: AMANTADINE HCL PEG/G-TUBE SCH (09:08)
[2018-05-28] MEDS: METOPROLOL TARTRATE 25 MG TAB PEG/G-TUBE SCH (09:09)
[2018-05-28] MEDS: CHOLECALCIFEROL 1,000 UNIT TAB PEG/G-TUBE SCH (09:10)
[2018-05-28] MEDS: ASCORBIC ACID 500 MG TAB PEG/G-TUBE SCH (09:10)
[2018-05-28] MEDS: MAGNESIUM OXIDE 400 MG TAB PEG/G-TUBE SCH (09:11)
--- NOTE | 2018-05-28 09:11 | P.PN ---
Subjective Progress Note Date: 05/27/18 [place] note being dictated for Dr. Carey. Interval history:Patient is a pleasant 57-year-old gentleman with history of multiple sclerosis mostly nonverbal came from [facility] has a multiple contractures was brought in because of the fever sepsis patient has leukocytosis patient has pneumonic infiltrate in the right middle lobe along with the significant abnormal urine patient has a Stein catheter in place which will be replaced. Patient has enterococcus, Pseudomonas and Proteus in the past patient was given ceftriaxone and kanamycin in ER. Patient does admit his patient was started on Zosyn, vancomycin. Blood cultures sputum cultures were obtained infectious disease will be consulted. 05/26/2018 Patient is seen and evaluated in the room at bedside; patient remains nonverbal but does not seem to be in any acute distress; vital signs remained stable with a temperature of 98.8 and a blood pressure 139/84 labs are reviewed within normal white blood count of 6.9 and hemoglobin stable at 11.4; INR remains therapeutic at 2.5 IDs recommending to continue IV vancomycin and Zosyn; frequent changes of position and recommended Further recommendations pending clinical course of patient 05/27/2018 maintained on IV antibiotics for acute UTI and possible aspiration pneumonia and multiple other medical issues. Chest x-ray reporting increased density right lower lobe. Afebrile. Currently maintaining O2 sats of 96% on room air. Objective - Vital Signs Vital signs: Vital Signs Temp 98.7 F 05/28/18 07:51 Pulse 97 05/28/18 07:51 Resp 20 05/28/18 07:51 BP 152/80 05/28/18 07:51 Pulse Ox 95 05/27/18 21:00 Intake & Output 05/27/18 05/28/18 05/28/18 18:59 06:59 18:59 Output Total 1800 900 Balance -1800 -900 Weight 69 kg Output: Urine 1800 900 Uretheral (Stein) 900 Other: Voiding Method Indwelling Catheter Indwelling Catheter - Exam PHYSICAL EXAM: VITAL SIGNS: [Temperature 98.5, pulse 70, blood pressure 139/93, O2 sat 97% on room air] GENERAL: The patient is alert, no acute distress, multiple contractures HEENT: Pupils are round and equally reacting to light. EOMI. No scleral icterus. No conjunctival pallor. Normocephalic, atraumatic. No pharyngeal erythema. No thyromegaly. CARDIOVASCULAR: S1 and S2 present. No murmurs, rubs, or gallops. PULMONARY: Air entry into bilateral lung prater , scattered rhonchi, no wheezing was appreciated ABDOMEN: Soft, nontender, nondistended, normoactive bowel sounds. No palpable organomegaly. PEG tube present .Stein catheter in place, there is a decubitus ulcer please refer to nursing documentation for staging. MUSCULOSKELETAL: No joint swelling or deformity. EXTREMITIES: No cyanosis, clubbing, or pedal edema. NEUROLOGICAL: Gross neurological examination did not reveal any new focal deficits. And has muscle atrophy in all 4 limbs bedbound with contractures SKIN: No rashes. - Labs CBC & Chem 7: 05/26/18 05:22 05/26/18 05:22 Labs: Abnormal Lab Results - Last 24 Hours (Table) 05/28/18 Range/Units 07:11 PT 12.2 H (9.0-12.0) sec INR 1.3 H (<1.2) Microbiology - Last 24 Hours (Table) 05/24/18 02:41 Blood Culture - Preliminary Blood No Growth after 96 hours Assessment and Plan Assessment: -Sepsis secondary to possible catheterization related acute UTI and right lower lobe pneumonia-possible aspiration pneumonia - decubitus ulcers -Chronic debility from multiple sclerosis -Multiple sclerosis -Dysphagia patient has a PEG tube in place -Hypertension -History of DVT patient is on anticoagulation with Coumadin which will be continued patient does have atrial fibrillation as well since patient's DVT was long time ago will not bridge patient is subtherapeutic and INR repeat INR will be obtained tomorrow. Plan: Continue on current medication regime ,monitoring and symptomatic treatment. Strict aspiration precautions. IV antibiotics as per infectious disease. Discharge planning in progress. The impression and plan of care has been dictated as directed. : I performed a history and examination of this patient, discussed the same with the dictator. I agree with the dictator's note ,documented as a scribe. Any additional findings or plans will be noted.
[2018-05-28] MEDS: SODIUM CHLORIDE 0.9% IRRIGATION SCH (09:12)
[2018-05-28 12:34] VITALS: BP 154/84; PULSE 80; TEMP 96.7
[2018-05-28] MEDS: NON-FORMULARY DRUG (Amino Acids/Protein Hydrolys [Pro-Stat Supplement] 30 ML) PEG/G-TUBE SCH (12:34)
[2018-05-28] MEDS: NEXIUM 20 MG PEG/G-TUBE SCH (12:36)
[2018-05-28] MEDS: MULTIVITAMINS, THERA LIQUID 237 ML BOTTLE PEG/G-TUBE SCH (12:39)
[2018-05-28] MEDS: MUPIROCIN 2% OINT 22 GM TUBE TOPICAL SCH (12:46)
--- NOTE | 2018-05-28 12:49 | P.DS ---
Providers Date of admission: 05/24/18 04:36 Expected date of discharge: 05/28/18 Attending physician: Judi Carey Consults: 05/24/18 10:00 Consult Physician Routine Consulting Provider: Sonal Farah Consult Reason/Comments: Sesis; uti Do you want consulting provider notified?: Yes Primary care physician: Mary A. Alley Hospital Course: Final Diagnoses: -Sepsis secondary to possible catheterization related acute UTI and right lower lobe pneumonia-possible aspiration pneumonia - decubitus ulcers: Bilateral knee stage I, sacrum healed wound -Chronic debility from multiple sclerosis -Multiple sclerosis -Dysphagia patient has a PEG tube in place -Hypertension -History of DVT and chronic atrial fibrillation, anticoagulated on Coumadin Hospital course:Patient is a pleasant 57-year-old gentleman with history of multiple sclerosis mostly nonverbal came from [facility] facility has a multiple contractures was brought in because of the fever sepsis patient has leukocytosis patient has pneumonic infiltrate in the right middle lobe along with the significant abnormal urine patient has a Stein catheter in place which will be replaced. Patient has enterococcus, Pseudomonas and Proteus in the past patient was given ceftriaxone and kanamycin in ER. Patient does admit his patient was started on Zosyn, vancomycin. Blood cultures sputum cultures were obtained infectious disease will be consulted. Evaluated by infectious disease, maintained on IV antibiotics for acute UTI and possible aspiration pneumonia and multiple other medical issues. Afebrile, maintaining O2 sats in the high 90s on room air. Significant clinical improvement. INR 1.3 today, Coumadin dose increased. Patient has been cleared by infectious disease for discharge. Patient is being discharged to [facility] in a stable condition with guarded prognosis. EXAM: GENERAL: The patient is alert, no acute distress, multiple contractures, nods head to answer questions CARDIOVASCULAR: S1 and S2 present. No murmurs, rubs, or gallops. PULMONARY: Air entry into bilateral lung prater , scattered rhonchi, no wheezing was appreciated ABDOMEN: Soft, nontender, nondistended, normoactive bowel sounds. No palpable organomegaly. PEG tube present .Stein catheter present NEUROLOGICAL: Gross neurological examination did not reveal any new focal deficits. And has muscle atrophy in all 4 limbs bedbound with contractures The impression and plan of care has been dictated as directed. : I performed a history and examination of this patient, discussed the same with the dictator. I agree with the dictator's note ,documented as a scribe. Any additional findings or plans will be noted. Time taken: 35 minutes Patient Condition at Discharge: Stable Plan - Discharge Summary New Discharge Prescriptions: New Moxifloxacin HCl [Avelox] 400 mg PO DAILY #7 tablet Warfarin [Coumadin] 4 mg PO DAILY tab Continue Metoprolol Tartrate [Lopressor] 25 mg PEG/G-TUBE Q12H Magnesium Oxide [Magox 400] 400 mg PEG/G-TUBE DAILY Jevity 1.5 Sherman Liquid 2 can PEG/G-TUBE BID@06,22 Gabapentin 250mg/5ml 250 mg PEG/G-TUBE Q6H Ferrous Sulfate Oral Elixir [Feosol Liquid] 300 mg PEG/G-TUBE DAILY Cholecalciferol [Vitamin D3] 1,000 unit PEG/G-TUBE DAILY Docusate Oral Soln [Colace Oral Soln] 100 mg PEG/G-TUBE BID Amantadine 50mg/5ml 100 mg PEG/G-TUBE Q12H Ascorbic Acid [Vitamin C] 250 mg PEG/G-TUBE DAILY guaiFENesin [guaiFENesin Oral Solution] 200 mg PEG/G-TUBE Q6H Scopolamine 1.5MG/72Hr Patch [TransDerm Scop] 1 patch TRANSDERM Q72H OXcarbazepine 300MG/5ML SUSP [Trileptal Liquid] 300 mg PEG/G-TUBE Q12H Multivitamins, Thera [Multivitamin (formulary)] 1 tab PEG/G-TUBE DAILY Jevity 1.5 Sherman Liquid 1 can PEG/G-TUBE DAILY@1400 Acetaminophen 500mg/15ml 500 mg PEG/G-TUBE Q6H PRN PRN Reason: Pain Baclofen 5 mg PEG/G-TUBE TID Nexium 20mg Packet 20 mg PEG/G-TUBE DAILY carBAMazepine [TEGretol Susp] 100 mg PEG/G-TUBE TID Amino Acids/Protein Hydrolys [Pro-Stat Supplement] 30 ml PEG/G-TUBE DAILY Sodium Chloride 0.9% Irrigatio [Saline 0.9% Irrigation] 10 ml IRRIGATION Q12H Furosemide [Lasix] 20 mg PEG/G-TUBE DAILY Mupirocin 2% Oint [Bactroban 2% Oint] 1 applic TOPICAL DAILY Changed Ipratropium-Albuterol Nebulize [Duoneb 0.5 mg-3 mg/3 ml Soln] 3 ml INHALATION QID #0 Discontinued Warfarin [Coumadin] 2.5 mg PEG/G-TUBE DAILY Discharge Medication List Ferrous Sulfate Oral Elixir [Feosol Liquid] 300 mg PEG/G-TUBE DAILY 08/07/17 [ History] Gabapentin 250mg/5ml 250 mg PEG/G-TUBE Q6H 08/07/17 [History] Jevity 1.5 Sherman Liquid 2 can PEG/G-TUBE BID@08/07/17 [History] Magnesium Oxide [Magox 400] 400 mg PEG/G-TUBE DAILY 08/07/17 [History] Metoprolol Tartrate [Lopressor] 25 mg PEG/G-TUBE Q12H 08/07/17 [History] Amantadine 50mg/5ml 100 mg PEG/G-TUBE Q12H 12/28/17 [History] Ascorbic Acid [Vitamin C] 250 mg PEG/G-TUBE DAILY 12/28/17 [History] Cholecalciferol [Vitamin D3] 1,000 unit PEG/G-TUBE DAILY 12/28/17 [History] Docusate Oral Soln [Colace Oral Soln] 100 mg PEG/G-TUBE BID 12/28/17 [History] Scopolamine 1.5MG/72Hr Patch [TransDerm Scop] 1 patch TRANSDERM Q72H 12/28/17 [ History] guaiFENesin [guaiFENesin Oral Solution] 200 mg PEG/G-TUBE Q6H 12/28/17 [History] Acetaminophen 500mg/15ml 500 mg PEG/G-TUBE Q6H PRN 02/15/18 [History] Jevity 1.5 Sherman Liquid 1 can PEG/G-TUBE DAILY@1400 02/15/18 [History] Multivitamins, Thera [Multivitamin (formulary)] 1 tab PEG/G-TUBE DAILY 02/15/18 [History] OXcarbazepine 300MG/5ML SUSP [Trileptal Liquid] 300 mg PEG/G-TUBE Q12H 02/15/18 [History] Baclofen 5 mg PEG/G-TUBE TID 04/07/18 [History] Nexium 20mg Packet 20 mg PEG/G-TUBE DAILY 04/07/18 [History] Amino Acids/Protein Hydrolys [Pro-Stat Supplement] 30 ml PEG/G-TUBE DAILY [History] Furosemide [Lasix] 20 mg PEG/G-TUBE DAILY 05/24/18 [History] Mupirocin 2% Oint [Bactroban 2% Oint] 1 applic TOPICAL DAILY 05/24/18 [History] Sodium Chloride 0.9% Irrigatio [Saline 0.9% Irrigation] 10 ml IRRIGATION Q12H [History] carBAMazepine [TEGretol Susp] 100 mg PEG/G-TUBE TID 05/24/18 [History] Ipratropium-Albuterol Nebulize [Duoneb 0.5 mg-3 mg/3 ml Soln] 3 ml INHALATION QID #0 05/28/18 [Rx] Moxifloxacin HCl [Avelox] 400 mg PO DAILY #7 tablet 05/28/18 [Rx] Warfarin [Coumadin] 4 mg PO DAILY tab 05/28/18 [Rx] Follow up Appointment(s)/Referral(s): Matteo Hernandez MD [REFERRING] - 3 Days (while at [facility]) Brenden Olivares DO [Primary Care Provider] - 1 Week (after dc from [facility]) Activity/Diet[facility]Wound Care[facility] COumadin dose increased, daily PT/INR with further dosing as per PCP Jevity 1.5 bolus feeds 250 MLS 6 times daily 190 MLS free water every 4 hours Strict aspiration precautions Discharge Disposition: TRANSFER TO SNF/F
--- NOTE | 2018-05-28 12:56 | PN ---
PROGRESS NOTE DATE OF SERVICE: 05/28/2018 REASON FOR FOLLOWUP: 1. Aspiration pneumonia. 2. UTI. INTERVAL HISTORY: The patient is afebrile. He seemed to be breathing more comfortably. Hemodynamically stable. No nausea has been noticed. No vomiting or any diarrhea per nursing staff. PHYSICAL EXAMINATION: On examination, blood pressure 152/80 with a pulse of 97, temperature 98.7. He is 95% on room air. General description is a middle-aged male lying in bed in no distress. RESPIRATORY SYSTEM: Unlabored breathing with decreased breath sounds at the bases, no wheeze. HEART: S1, S2. Regular rate and rhythm. ABDOMEN: Soft, no tenderness. LABS: No new labs have been obtained today. DIAGNOSTIC IMPRESSION AND PLAN: Patient admitted to the hospital with sepsis. Initial concern for possible catheter- associated urinary tract infection. However, urine culture negative. He did have a right lower lobe pneumonia, question aspiration etiology. Did well on Zosyn that has been transitioned to Avelox 400 daily for about a week to finish a course of therapy. Continue with supportive care. MMODL / IJN: [id number] /
[2018-05-28] MEDS ORDERED: WARFARIN 2 MG TAB PO ONE (18:00)
== END 2018-05-28 14:10 | DRG 698 ==
LOC: EC 02:28 → 5MS5E 04:36
PROVIDERS: ADMIT Internal Medicine; ATTEND Internal Medicine
DX: T83.518A Infection and inflammatory reaction due to other urinary catheter, initial encounter (principal); A41.9 Sepsis, unspecified organism; J69.0 Pneumonitis due to inhalation of food and vomit; N39.0 Urinary tract infection, site not specified; Y84.6 Urinary catheterization as the cause of abnormal reaction of the patient, or of later complication, without mention of misadventure at the time of the procedure; F32.9 Major depressive disorder, single episode, unspecified; G35 Multiple sclerosis; I10 Essential (primary) hypertension; R13.10 Dysphagia, unspecified; R47.02 Dysphasia; Z74.01 Bed confinement status; Z79.01 Long term (current) use of anticoagulants; Z86.718 Personal history of other venous thrombosis and embolism; Z93.1 Gastrostomy status; R31.9 Hematuria, unspecified; Z86.14 Personal history of Methicillin resistant Staphylococcus aureus infection; Z87.01 Personal history of pneumonia (recurrent); Z88.1 Allergy status to other antibiotic agents; R47.1 Dysarthria and anarthria; R15.9 Full incontinence of feces; R33.9 Retention of urine, unspecified
CPT/HCPCS: 36415; 71045; 80048; 80053; 80202; 81001; 82550; 82553; 83605; 83735; 84484; 85025; 85027; 85610; 85730; 87040; 87086; 93005; 94640; 96365; 96375; 99285

== ENCOUNTER 2018-06-03 00:16 | Inpatient (IN) | payer MEDICARE, OTHER ==
[2018-06-03 00:57] LABS: Basophils # (A) 0.1 k/uL (0-0.2); Basophils % (A) 1 %; Eosinophils # (A) 0.5 k/uL (0-0.7); Eosinophils % (A) 6 %; HGB 12.7 gm/dL (13.0-17.5); Lymphocytes # (A) 2.1 k/uL (1.0-4.8); Lymphocytes % (A) 26 %; MCH 27.9 pg (25.0-35.0); MCHC 31.8 g/dL (31.0-37.0); MCV 87.7 fL (80.0-100.0); Mean Platelet Volume 6.7; Monocytes # (A) 0.5 k/uL (0-1.0); Monocytes % (A) 6 %; Neutrophils # (A) 4.9 k/uL (1.3-7.7); Neutrophils % (A) 60 %; Platelet Count 537 k/uL (150-450); RBC 4.56 m/uL (4.30-5.90); RDW 15.5 % (11.5-15.5); WBC 8.2 k/uL (3.8-10.6)
[2018-06-03 01:05] LABS: ALT 29 U/L (21-72); AST 22 U/L (17-59); Albumin 3.5 g/dL (3.5-5.0); Alkaline Phosphatase 93 U/L (38-126); Anion Gap 10 mmol/L; Blood Urea Nitrogen 21 mg/dL (9-20); Calcium 8.8 mg/dL (8.4-10.2); Carbon Dioxide 24 mmol/L (22-30); Chloride 96 mmol/L (98-107); Glucose 96 mg/dL (74-99); Potassium 4.3 mmol/L (3.5-5.1); Sodium 130 mmol/L (137-145); Total Bilirubin 0.2 mg/dL (0.2-1.3); Total Protein 6.8 g/dL (6.3-8.2)
[2018-06-03 01:10] LABS: INR 1.6 (<1.2); Partial Thromboplastin Time 30.4 sec (22.0-30.0); Prothrombin Time 14.7 sec (9.0-12.0)
[2018-06-03 01:14] LABS: Appearance,Urine Clear (Clear); Bilirubin,Urine Negative (Negative); Blood,Urine Negative (Negative); Color,Urine Yellow; Glucose,Urine (UA) Negative (Negative); Ketones,Urine Negative (Negative); Leukocyte Esterase,Urine Large (Negative); Nitrite,Urine Positive (Negative); Protein,Urine Negative (Negative); RBC,Urine 3 /hpf (0-5); Specific Gravity,Urine 1.011 (1.001-1.035); Urobilinogen,Urine <2.0 mg/dL (<2.0); WBC,Urine 42 /hpf (0-5)
--- NOTE | 2018-06-03 01:14 | XR ---
EXAMINATION TYPE: XR chest 2V DATE OF EXAM: 06/03/2018 COMPARISON: 05/27/2018 HISTORY: Fever TECHNIQUE: Frontal and lateral views of the chest are obtained. FINDINGS: There is some patchy infiltrate and atelectasis in the right midlung. There is left upper lobe mild infiltrate. There is no heart failure. There is left old healed rib fracture. There is no p leural effusion. There is no heart failure. IMPRESSION: Bilateral pulmonary infiltrates are increased compared to last exam. No heart failure.
[2018-06-03] MEDS ORDERED: AZTREONAM 2 GM in SODIUM CHLORIDE 0.9% 100 ML IVPB STA (01:56)
[2018-06-03] MEDS ORDERED: VANCOMYCIN IV PER PHARMACY 1 EACH MISC MISCELLANE PRN (01:56)
[2018-06-03] MEDS ORDERED: PNEUMONIA PROTOCOL UTILIZED 1 EACH MISC PO PRN (01:56)
[2018-06-03] MEDS ORDERED: LEVOFLOXACIN 750MG-D5W PMX 750 MG in DEXTROSE/WATER 1 150ML.BAG IVPB STA (02:06)
--- NOTE | 2018-06-03 03:10 | ED ---
General Adult HPI - General Chief complaint: Recheck/Abnormal Lab/Rx Stated complaint: UTI Time Seen by Provider: 06/03/18 00:35 Source: EMS Mode of arrival: EMS Limitations: language barrier, physical limitation - History of Present Illness Initial comments: Chris is a 58-year-old male with advanced MS who is minimally verbal. He is into the ED today via EMS from his extended care facility for reevaluation of possible sepsis. Caregivers at the facility reported to EMS that the patient has had a progressively worsening cough, sweats and was febrile. Patient was recently admitted to our hospital for urinary tract infection and pneumonia, he was treated with antibiotics and discharged home to his extended care facility. Patient is able to shake his head or nod to answer yes or no questions. He can also mouth short words. When asked if he has any pain patient says no. He denies chest pain. He denies trouble breathing. He admits to a cough. - Related Data Home Medications Medication Instructions Recorded Confirmed Ferrous Sulfate Oral Elixir 300 mg PEG/G-TUBE DAILY 08/07/17 05/24/18 [Feosol Liquid] Gabapentin 250mg/5ml 250 mg PEG/G-TUBE Q6H 08/07/17 05/24/18 Jevity 1.5 Sherman Liquid 2 can PEG/G-TUBE BID@08/07/17 05/24/18 Magnesium Oxide [Magox 400] 400 mg PEG/G-TUBE DAILY 08/07/17 05/24/18 Metoprolol Tartrate [Lopressor] 25 mg PEG/G-TUBE Q12H 08/07/17 05/24/18 Amantadine 50mg/5ml 100 mg PEG/G-TUBE Q12H 12/28/17 05/24/18 Ascorbic Acid [Vitamin C] 250 mg PEG/G-TUBE DAILY 12/28/17 05/24/18 Cholecalciferol [Vitamin D3] 1,000 unit PEG/G-TUBE DAILY 12/28/17 05/24/18 Docusate Oral Soln [Colace Oral 100 mg PEG/G-TUBE BID 12/28/17 05/24/18 Soln] Scopolamine 1.5MG/72Hr Patch 1 patch TRANSDERM Q72H 12/28/17 05/24/18 [TransDerm Scop] guaiFENesin [guaiFENesin Oral 200 mg PEG/G-TUBE Q6H 12/28/17 05/24/18 Solution] Acetaminophen 500mg/15ml 500 mg PEG/G-TUBE Q6H PRN 02/15/18 05/24/18 Jevity 1.5 Sherman Liquid 1 can PEG/G-TUBE DAILY@1400 02/15/18 05/24/18 Multivitamins, Thera [Multivitamin 1 tab PEG/G-TUBE DAILY 02/15/18 05/24/18 (formulary)] OXcarbazepine 300MG/5ML SUSP 300 mg PEG/G-TUBE Q12H 02/15/18 05/24/18 [Trileptal Liquid] Baclofen 5 mg PEG/G-TUBE TID 04/07/18 05/24/18 Nexium 20mg Packet 20 mg PEG/G-TUBE DAILY 04/07/18 05/24/18 Amino Acids/Protein Hydrolys 30 ml PEG/G-TUBE DAILY 05/24/18 05/24/18 [Pro-Stat Supplement] Furosemide [Lasix] 20 mg PEG/G-TUBE DAILY 05/24/18 05/24/18 Mupirocin 2% Oint [Bactroban 2% 1 applic TOPICAL DAILY 05/24/18 05/24/18 Oint] Sodium Chloride 0.9% Irrigatio 10 ml IRRIGATION Q12H 05/24/18 05/24/18 [Saline 0.9% Irrigation] carBAMazepine [TEGretol Susp] 100 mg PEG/G-TUBE TID 05/24/18 05/24/18 Previous Rx's Medication Instructions Recorded Ipratropium-Albuterol Nebulize 3 ml INHALATION QID #0 05/28/18 [Duoneb 0.5 mg-3 mg/3 ml Soln] Moxifloxacin HCl [Avelox] 400 mg PO DAILY #7 tablet 05/28/18 Warfarin [Coumadin] 4 mg PO DAILY tab 05/28/18 Allergies Allergy/AdvReac Type Severity Reaction Status Date / Time meropenem [From Merrem] Allergy Rash/Hives Verified 05/24/18 09:11 Review of Systems ROS Statement: Those systems with pertinent positive or pertinent negative responses have been documented in the HPI. Review of systems limited by patient's limited ability to communicate ROS Other: All systems not noted in ROS Statement are negative. Past Medical History Past Medical History: Deep Vein Thrombosis (DVT), Musculoskeletal Disorder, Pneumonia, Renal Disease Additional Past Medical History / Comment(s): MS, cognitive impariment/ non verbal, NPO-peg tube,DVT-arm , IDC ,INCONT OF BOWEL. DYSARTHRIA/ANARTHRIA/ DYSPHAGIA. BEDBOUND, RACHEL LIFT TO W/C. History of Any Multi-Drug Resistant Organisms: MRSA Date of last positivie culture/infection: 10/21/17 MDRO Source:: URINE Additional Past Surgical History / Comment(s): PEG TUBE, HX OF GASTROSTOMY, PICC LINE Past Anesthesia/Blood Transfusion Reactions: Unable to Obtain Past Psychological History: Depression Smoking Status: Never smoker Past Alcohol Use History: None Reported Past Drug Use History: None Reported - Past Family History Father Family Medical History: Unable to Obtain Mother Family Medical History: Unable to Obtain General Exam - General Exam Comments Initial Comments: GENERAL: Chronically ill-appearing, debilitated, cachectic, contracted male HENT: Normocephalic, Atraumatic. EYES: Pupils equal round reactive to light, extraocular movements PULMONARY: Tachypnea, crackles in all lung prater CARDIOVASCULAR: There is a regular rate and rhythm without any murmurs gallops or rubs. ABDOMEN: Soft and nontender with normal bowel sounds. PEG tube in place SKIN: Skin is clear with no lesions or rashes and otherwise unremarkable. Pale, moist skin GENITOURINARY: Stein catheter in place draining yellowish urine NEUROLOGIC: Nonverbal Nods his head and mouth short words appropriately MUSCULOSKELETAL: Diffuse atrophy, contracted extremities LYMPHATICS: No significant lymphadenopathy is noted Limitations: no limitations Limitations: language barrier, physical limitation Course Vital Signs 06/03/18 06/03/18 00:23 02:25 Temperature 98.5 F 98.0 F Pulse Rate 73 72 Respiratory 16 16 Rate Blood Pressure 156/94 133/87 O2 Sat by Pulse 98 100 Oximetry EKG Findings - EKG Comments: EKG Findings:: EKG obtained at 2:03 AM, rate is 70 rhythm is sinus, normal axis , normal intervals, some movement artifact is noted but no evidence of acute ischemia or infarction Medical Decision Making - Medical Decision Making Patient was seen and evaluated, history was obtained from patient, EMS and review of medical record. I did see this patient when he was admitted previously for pneumonia and UTI. Patient appears better today than he did during his previous admission, however he is noted to be somewhat diaphoretic and have worsened lung sounds bilaterally and previous Stein catheter is draining clear urine, does not appear cloudy, does not appear infected Given the patient's history a sepsis workup was ordered Labs were reviewed, no significant changes from baseline, no leukocytosis though the white blood cell count is again increasing Urinalysis with no obvious urinary tract infection Chest x-ray with significantly worsening bilateral pulmonary infiltrates, considering that the patient was recently admitted and lives in an extended care facility I will treat with broad-spectrum antibiotics to treat for healthcare associated pneumonia. Patient was updated on findings, when I asked the patient if he would want to be resuscitated were his breathing to get worse or his heart were to stop patient nodded yes indicating that he would want to remain full code Based on the patient's multiple comorbidities I Do believe the patient requires admission for IV antibiotics, evaluation by infectious disease. Admission orders were placed - Lab Data Result diagrams: 06/03/18 00:28 06/03/18 00:28 Lab Results 06/03/18 06/03/18 06/03/18 Range/Units 00:28 00:28 00:28 WBC 8.2 (3.8-10.6) k/uL RBC 4.56 (4.30-5.90) m/uL Hgb 12.7 L (13.0-17.5) gm/dL Hct 40.0 (39.0-53.0) % MCV 87.7 (80.0-100.0) fL MCH 27.9 (25.0-35.0) pg MCHC 31.8 (31.0-37.0) g/dL RDW 15.5 (11.5-15.5) % Plt Count 537 H (150-450) k/uL Neutrophils % 60 % Lymphocytes % 26 % Monocytes % 6 % Eosinophils % 6 % Basophils % 1 % Neutrophils # 4.9 (1.3-7.7) k/uL Lymphocytes # 2.1 (1.0-4.8) k/uL Monocytes # 0.5 (0-1.0) k/uL Eosinophils # 0.5 (0-0.7) k/uL Basophils # 0.1 (0-0.2) k/uL PT (9.0-12.0) sec INR (<1.2) APTT (22.0-30.0) sec Sodium 130 L (137-145) mmol/L Potassium 4.3 (3.5-5.1) mmol/L Chloride 96 L (98-107) mmol/L Carbon Dioxide 24 (22-30) mmol/L Anion Gap 10 mmol/L BUN 21 H (9-20) mg/dL Creatinine 0.80 (0.66-1.25) mg/dL Est GFR (CKD-EPI)AfAm >90 (>60 ml/min/1.73 sqM) Est GFR (CKD-EPI)NonAf >90 (>60 ml/min/1.73 sqM) Glucose 96 (74-99) mg/dL Plasma Lactic Acid Taurus 1.3 (0.7-2.0) mmol/L Calcium 8.8 (8.4-10.2) mg/dL Total Bilirubin 0.2 (0.2-1.3) mg/dL AST 22 (17-59) U/L ALT 29 (21-72) U/L Alkaline Phosphatase 93 (38-126) U/L Total Protein 6.8 (6.3-8.2) g/dL Albumin 3.5 (3.5-5.0) g/dL Urine Color Urine Appearance (Clear) Urine pH (5.0-8.0) Ur Specific Mchenry (1.001-1.035) Urine Protein (Negative) Urine Glucose (UA) (Negative) Urine Ketones (Negative) Urine Blood (Negative) Urine Nitrite (Negative) Urine Bilirubin (Negative) Urine Urobilinogen (<2.0) mg/dL Ur Leukocyte Esterase (Negative) Urine RBC (0-5) /hpf Urine WBC (0-5) /hpf 06/03/18 06/03/18 Range/Units 00:28 01:04 WBC (3.8-10.6) k/uL RBC (4.30-5.90) m/uL Hgb (13.0-17.5) gm/dL Hct (39.0-53.0) % MCV (80.0-100.0) fL MCH (25.0-35.0) pg MCHC (31.0-37.0) g/dL RDW (11.5-15.5) % Plt Count (150-450) k/uL Neutrophils % % Lymphocytes % % Monocytes % % Eosinophils % % Basophils % % Neutrophils # (1.3-7.7) k/uL Lymphocytes # (1.0-4.8) k/uL Monocytes # (0-1.0) k/uL Eosinophils # (0-0.7) k/uL Basophils # (0-0.2) k/uL PT 14.7 H (9.0-12.0) sec INR 1.6 H (<1.2) APTT 30.4 H (22.0-30.0) sec Sodium (137-145) mmol/L Potassium (3.5-5.1) mmol/L Chloride (98-107) mmol/L Carbon Dioxide (22-30) mmol/L Anion Gap mmol/L BUN (9-20) mg/dL Creatinine (0.66-1.25) mg/dL Est GFR (CKD-EPI)AfAm (>60 ml/min/1.73 sqM) Est GFR (CKD-EPI)NonAf (>60 ml/min/1.73 sqM) Glucose (74-99) mg/dL Plasma Lactic Acid Taurus (0.7-2.0) mmol/L Calcium (8.4-10.2) mg/dL Total Bilirubin (0.2-1.3) mg/dL AST (17-59) U/L ALT (21-72) U/L Alkaline Phosphatase (38-126) U/L Total Protein (6.3-8.2) g/dL Albumin (3.5-5.0) g/dL Urine Color Yellow Urine Appearance Clear (Clear) Urine pH 7.0 (5.0-8.0) Ur Specific Mchenry 1.011 (1.001-1.035) Urine Protein Negative (Negative) Urine Glucose (UA) Negative (Negative) Urine Ketones Negative (Negative) Urine Blood Negative (Negative) Urine Nitrite Positive (Negative) Urine Bilirubin Negative (Negative) Urine Urobilinogen <2.0 (<2.0) mg/dL Ur Leukocyte Esterase Large H (Negative) Urine RBC 3 (0-5) /hpf Urine WBC 42 H (0-5) /hpf Disposition Clinical Impression: HCAP (healthcare-associated pneumonia) Disposition: ADMITTED IP TO THIS [facility] Condition: Stable Referrals: Brenden Olivares DO [Primary Care Provider] - 1 Week
[2018-06-03] MEDS: CLINDAMYCIN 600 MG in DEXTROSE 5% IN WATER 50 ML IVPB SCH ×4 (03:49→11:08)
[2018-06-03] MEDS: VANCOMYCIN 1,000 MG in SODIUM CHLORIDE 0.9% 250 ML IVPB SCH ×2 (06:28→17:37)
[2018-06-03 13:13] LABS: Glucose,Whole Blood 94 mg/dL (75-99)
[2018-06-03] MEDS ORDERED: ACETAMINOPHEN ORAL SUSP 160 MG/5 ML CUP PEG/G-TUBE PRN (13:36)
[2018-06-03] MEDS ORDERED: IPRATROPIUM-ALBUTEROL 3 ML NEB INHALATION PRN (13:36)
--- NOTE | 2018-06-03 15:05 | P.HPIM ---
History of Present Illness 58-year-old the male with advanced multiple cirrhosis nonverbal was discharged from my service few days ago after he was treated for her pneumonia was discharged on Avelox patient at that time presented with sepsis. This time patient was sent in from the extended care facility because he is still coughing. Patient does have rhonchus breath sounds, unsure whether had fever at night. Patient doesn't have any evidence of fever here and as per the ER physician dictation patient was having fever to. Doesn't have any leukocytosis chest x-ray was read as worsening infiltrate compared to last time. Infectious disease and pulmonary will be consulted. Review of Systems Unable to obtain due to his clinical condition. Past Medical History Past Medical History: Deep Vein Thrombosis (DVT), GERD/Reflux, Hypertension, Musculoskeletal Disorder, Pneumonia, Renal Disease Additional Past Medical History / Comment(s): MS, cognitive impariment/ non verbal, NPO-peg tube,DVT-arm , IDC ,INCONT OF BOWEL. DYSARTHRIA/ANARTHRIA/ DYSPHAGIA. BEDBOUND, RACHEL LIFT TO W/C, neurogenic bladder,m History of Any Multi-Drug Resistant Organisms: MRSA Date of last positivie culture/infection: 10/21/17 MDRO Source:: URINE Additional Past Surgical History / Comment(s): PEG TUBE, HX OF GASTROSTOMY, PICC LINE Past Anesthesia/Blood Transfusion Reactions: Unable to Obtain Past Psychological History: Depression Additional Psychological History / Comment(s): PT RESIDES AT [place] [phone] Smoking Status: Unknown if ever smoked Past Alcohol Use History: None Reported Past Drug Use History: None Reported - Past Family History Father Family Medical History: Unable to Obtain Mother Family Medical History: Unable to Obtain Medications and Allergies Home Medications Medication Instructions Recorded Confirmed Type Ferrous Sulfate Oral Elixir 300 mg PEG/G-TUBE DAILY 08/07/17 06/03/18 History [Feosol Liquid] Gabapentin 250mg/5ml 250 mg PEG/G-TUBE Q6H 08/07/17 06/03/18 History Magnesium Oxide [Magox 400] 400 mg PEG/G-TUBE DAILY 08/07/17 06/03/18 History Metoprolol Tartrate [Lopressor] 25 mg PEG/G-TUBE Q12H 08/07/17 06/03/18 History Amantadine 50mg/5ml 100 mg PEG/G-TUBE Q12H 12/28/17 06/03/18 History Ascorbic Acid [Vitamin C] 250 mg PEG/G-TUBE DAILY 12/28/17 06/03/18 History Cholecalciferol [Vitamin D3] 1,000 unit PEG/G-TUBE DAILY 12/28/17 06/03/18 History Docusate Oral Soln [Colace Oral 40 mg PEG/G-TUBE BID 12/28/17 06/03/18 History Soln] Scopolamine 1.5MG/72Hr Patch 1 patch TRANSDERM Q72H 12/28/17 06/03/18 History [TransDerm Scop] guaiFENesin [guaiFENesin Oral 200 mg PEG/G-TUBE Q6H 12/28/17 06/03/18 History Solution] Acetaminophen 500mg/15ml 160 mg PEG/G-TUBE Q6H PRN 02/15/18 06/03/18 History Multivitamins, Thera [Multivitamin 1 tab PEG/G-TUBE DAILY 02/15/18 06/03/18 History (formulary)] OXcarbazepine 300MG/5ML SUSP 300 mg PEG/G-TUBE Q12H 02/15/18 06/03/18 History [Trileptal Liquid] Baclofen 5 mg PEG/G-TUBE TID 04/07/18 06/03/18 History Nexium 20mg Packet 20 mg PEG/G-TUBE DAILY 04/07/18 06/03/18 History Furosemide [Lasix] 20 mg PEG/G-TUBE DAILY 05/24/18 06/03/18 History Mupirocin 2% Oint [Bactroban 2% 1 applic TOPICAL BID 05/24/18 06/03/18 History Oint] carBAMazepine [TEGretol Susp] 100 mg PEG/G-TUBE TID 05/24/18 06/03/18 History Amino Acids/Protein Hydrolys 30 ml PEG/G-TUBE DAILY 06/03/18 06/03/18 History [Pro-Stat Supplement] Ipratropium-Albuterol Nebulize 3 ml INHALATION RT-Q6H PRN 06/03/18 06/03/18 History [Duoneb 0.5 mg-3 mg/3 ml Soln] Moxifloxacin HCl [Avelox] 400 mg PEG/G-TUBE DAILY 06/03/18 06/03/18 History Warfarin [Coumadin] 4 mg PEG/G-TUBE DAILY 06/03/18 06/03/18 History Allergies Allergy/AdvReac Type Severity Reaction Status Date / Time meropenem [From Merrem] Allergy Rash/Hives Verified 06/03/18 13:16 Physical Exam Vitals: Vital Signs Temp Pulse Pulse Resp BP BP Pulse Ox 06/03/18 05:43 98.8 F 72 17 134/84 95 06/03/18 02:25 98.0 F 72 16 133/87 100 06/03/18 00:23 98.5 F 73 16 156/94 98 Intake and Output 06/02/18 06/03/18 06/03/18 22:59 06:59 14:59 Intake Total 10 Output Total 700 Balance -700 10 Intake: Tube Feeding 10 Output: Urine 700 Other: Voiding Method Incontinent Indwelling Catheter Weight 71.07 kg PHYSICAL EXAMINATION: GENERAL: The patient is alert nonverbal unable to assess orientation although patient understands but cannot communicate back because of his the multiple sclerosis., not in any acute distress. Well developed, well nourished. HEENT: Pupils are round and equally reacting to light. EOMI. No scleral icterus. No conjunctival pallor. Normocephalic, atraumatic. No pharyngeal erythema. No thyromegaly. CARDIOVASCULAR: S1 and S2 present. No murmurs, rubs, or gallops. PULMONARY: Rhonchus breath sounds bilateral crackles no wheezing was appreciated ABDOMEN: Soft, nontender, nondistended, normoactive bowel sounds. No palpable organomegaly. MUSCULOSKELETAL: No joint swelling or deformity. EXTREMITIES: No cyanosis, clubbing, or pedal edema. NEUROLOGICAL: Gross neurological examination did not reveal any new focal deficits. A she is bedbound and multiple contractures which are chronic SKIN: No rashes. Results CBC & Chem 7: 06/03/18 00:28 06/03/18 00:28 Labs: Abnormal Lab Results - Last 24 Hours (Table) 06/03/18 06/03/18 06/03/18 Range/Units 00:28 00:28 00:28 Hgb 12.7 L (13.0-17.5) gm/dL Plt Count 537 H (150-450) k/uL PT 14.7 H (9.0-12.0) sec INR 1.6 H (<1.2) APTT 30.4 H (22.0-30.0) sec Sodium 130 L (137-145) mmol/L Chloride 96 L (98-107) mmol/L BUN 21 H (9-20) mg/dL Ur Leukocyte Esterase (Negative) Urine WBC (0-5) /hpf 06/03/18 Range/Units 01:04 Hgb (13.0-17.5) gm/dL Plt Count (150-450) k/uL PT (9.0-12.0) sec INR (<1.2) APTT (22.0-30.0) sec Sodium (137-145) mmol/L Chloride (98-107) mmol/L BUN (9-20) mg/dL Ur Leukocyte Esterase Large H (Negative) Urine WBC 42 H (0-5) /hpf Microbiology - Last 24 Hours (Table) 06/03/18 01:04 Urine Culture - Preliminary Urine,Catheterized Thrombosis Risk Factor Assmnt - Choose All That Apply Each Factor Represents 1 point: Age 41-60 years, Medical pt on bed rest Thrombosis Risk Factor Assessment Total Risk Factor Score: 2 Thrombosis Risk Factor Assessment Level: Low Risk Assessment and Plan Plan: -Possibility of worsening pneumonia: Unsure whether patient has worsening pneumonia, though. 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 -History of DVT and chronic A. fib anti-correlated on Coumadin suppurative component patient will be resumed on anticoagulation titrate Coumadin depending on INR. Levofloxacin doesn't track with Coumadin. -Hypertension
[2018-06-03] MEDS: GABAPENTIN PEG/G-TUBE SCH ×2 (15:39→20:57)
[2018-06-03] MEDS: DOCUSATE ORAL SOLN 100 MG/10 ML CUP PEG/G-TUBE SCH ×2 (15:46→21:05)
[2018-06-03] MEDS: BACLOFEN 10 MG TAB PEG/G-TUBE SCH ×2 (15:47→21:05)
[2018-06-03] MEDS: OXcarbazepine 300MG/5ML SUSP 15,000 MG/250 ML BOTTLE PEG/G-TUBE SCH ×2 (15:55→21:06)
[2018-06-03] MEDS: SCOPOLAMINE TRANSDERM SCH (15:55)
[2018-06-03] MEDS: WARFARIN 2 MG TAB PEG/G-TUBE SCH (15:58)
[2018-06-03] MEDS: guaiFENesin SYRUP 100MG/5ML 200 MG/10 ML CUP PEG/G-TUBE SCH ×2 (17:37→23:18)
[2018-06-03 18:10] LABS: Glucose,Whole Blood 93 mg/dL (75-99)
[2018-06-03] MEDS: AMANTADINE HCL PEG/G-TUBE SCH (21:05)
[2018-06-03] MEDS: METOPROLOL TARTRATE 25 MG TAB PEG/G-TUBE SCH (21:05)
[2018-06-03] MEDS: MUPIROCIN 2% OINT 22 GM TUBE TOPICAL SCH (21:09)
[2018-06-03] MEDS: PIPERACILLIN-TAZOBACTAM 3.375 GM in DEXTROSE/WATER 1 50ML.BAG IVPB SCH (23:18)
[2018-06-04] MEDS: CLINDAMYCIN 600 MG in DEXTROSE 5% IN WATER 50 ML IVPB SCH ×2 (01:01)
[2018-06-04] MEDS: GABAPENTIN PEG/G-TUBE SCH ×4 (01:02→22:37)
[2018-06-04] MEDS ORDERED: LEVOFLOXACIN 750MG-D5W PMX 750 MG in DEXTROSE/WATER 1 150ML.BAG IVPB SCH (03:40)
[2018-06-04] MEDS: VANCOMYCIN 1,000 MG in SODIUM CHLORIDE 0.9% 250 ML IVPB SCH ×2 (06:34→21:29)
[2018-06-04] MEDS: guaiFENesin SYRUP 100MG/5ML 200 MG/10 ML CUP PEG/G-TUBE SCH ×3 (06:34→16:57)
[2018-06-04 07:36] LABS: Glucose,Whole Blood 128 mg/dL (75-99)
--- NOTE | 2018-06-04 08:39 | CONS ---
CONSULTATION DATE OF SERVICE: 06/03/2018. REASON FOR CONSULTATION: Nosocomial pneumonia. HISTORY OF PRESENT ILLNESS: The patient is a 58-year-old male with a past medical history significant for MS in a patient who is bed bound who was recently admitted at this facility on 05/24/2018, discharged on 05/28/2018. At that time, the patient was admitted with sepsis with concern for possible catheter-related urinary tract infection and aspiration pneumonia. The patient's urine culture came back negative. No sputum could be obtained and blood cultures were negative. With overall resolution of his fever on vancomycin and Zosyn, hence was recommended for the patient to finish therapy with oral Avelox 1 daily for 7 days. The patient now has been sent back to the ER at [facility] by the snf staff with concern the patient having a congested cough and fever. The patient was brought into the ER. On arrival to the ER no specific fever has been noticed. Temperature was 98.5. The patient's white count was normal. UA was slightly positive. Chest x-ray was read by the radiologist, bilateral pulmonary infiltrate increased compared to last exam. No heart failure. The patient did of nosocomial pneumonia. He was started on multiple antibiotics including clindamycin, Azactam, Levaquin, vancomycin and admitted to the hospital. Infectious Disease was consulted for further recommendation regarding antibiotic therapy. The patient seemed to be more awake, alert and not in any distress compared to when he has been seen in the past because of sepsis. He is not very verbal to provide any history. Most information was obtained from thorough review of the chart. REVIEW OF SYSTEMS: Could not be reliably obtained. The positive points have been mentioned in HPI. PAST MEDICAL HISTORY: Multiple sclerosis, urinary retention requiring chronic Stein, stage II sacral wound has healed, and DVT. PAST SURGICAL HISTORY: PEG tube placement and subsequent removal. SOCIAL HISTORY: Currently resides at [facility]. No history of smoking, drinking or drug use. FAMILY HISTORY: No pertinent findings noticed. ALLERGIES: TO MEROPENEM. Has tolerated Penicillin without any problem. MEDICATION: The patient is currently on Tylenol, DuoNeb, amantadine, baclofen, , iron sulfate, and Mag oxide, Lopressor, Bactroban ointment, Protonix, vancomycin, Coumadin. He is on Levaquin, Azactam and clindamycin. EXAMINATION: Blood pressure 128/80 with a pulse of 90, temperature 98.2. He is 94%. General description is a middle-aged male lying in bed in no distress. HEENT: Shows slight pallor. No scleral icterus. Oral mucosal membranes dry. Neck: Trachea central. No thyromegaly. LUNGS: Unlabored breathing with decreased breath sounds at the bases. Heart S1, S2. Regular rate and rhythm. ABDOMEN: Soft. No tenderness. No guarding or rigidity. EXTREMITIES: No edema of the feet. Skin examination: No rash or mass palpable. Stein catheter draining clear urine. No sediments or hematuria. Neurological: Patient is awake, alert. However orientation could not be determined. The patient not verbal. No agitation was noticed. LABORATORY DATA: UA with large esterase, 42 WBC. His hemoglobin is 12.7, white count 8.2, BUN of 21, creatinine 0.87. DIAGNOSTIC IMPRESSION AND PLAN: 1. Patient being brought to the hospital with fever and congested cough in a patient who was recently admitted to this facility and treated for possible aspiration pneumonia and catheter associated urinary tract infection. The patient on this admission so far did not have any fever and no elevated white count, mild cough with some of the abnormality at chest x-ray could be related to possible atelectasis from the patient not taking a deep breath, underlying pneumonia especially worsening not likely but not entirely excluded. 2. The patient did have MEROPENEM ALLERGY however, had taken Zosyn without any problem. PLAN: 1. Discontinue the Azactam, clindamycin and Levaquin. 2. Will add Zosyn 3.375 g q.8 hours. 3. Vancomycin pharmacy to dose target of 15 to continue watching his kidney function closely. 4. Try to obtain sputum for Gram stain and culture, sensitivity. 5. We will check a procalcitonin level. 6. We will follow up on clinical condition and culture to further adjust medication if needed. Thank you for this consultation. We will follow this patient along with you. MMODL / IJN: [id number] /
[2018-06-04] MEDS: PIPERACILLIN-TAZOBACTAM 3.375 GM in DEXTROSE/WATER 1 50ML.BAG IVPB SCH ×2 (09:00→16:56)
[2018-06-04 09:15] LABS: Basophils % (A) 1 %; Eosinophils # (A) 0.3 k/uL (0-0.7); Eosinophils % (A) 3 %; HCT 41.1 % (39.0-53.0); Lymphocytes # (A) 1.2 k/uL (1.0-4.8); Lymphocytes % (A) 13 %; MCH 28.3 pg (25.0-35.0); MCHC 31.7 g/dL (31.0-37.0); MCV 89.2 fL (80.0-100.0); Mean Platelet Volume 6.5; Monocytes # (A) 0.4 k/uL (0-1.0); Monocytes % (A) 4 %; Neutrophils # (A) 6.9 k/uL (1.3-7.7); Neutrophils % (A) 77 %; Platelet Count 474 k/uL (150-450); RBC 4.61 m/uL (4.30-5.90); RDW 15.6 % (11.5-15.5); WBC 8.9 k/uL (3.8-10.6)
[2018-06-04 09:27] LABS: Anion Gap 10 mmol/L; Blood Urea Nitrogen 14 mg/dL (9-20); Carbon Dioxide 22 mmol/L (22-30); Chloride 102 mmol/L (98-107); Glucose 118 mg/dL (74-99); Potassium 4.4 mmol/L (3.5-5.1); Sodium 134 mmol/L (137-145)
[2018-06-04] MEDS: BACLOFEN 10 MG TAB PEG/G-TUBE SCH ×3 (09:48→22:33)
[2018-06-04] MEDS: DOCUSATE ORAL SOLN 100 MG/10 ML CUP PEG/G-TUBE SCH ×2 (09:49→22:38)
[2018-06-04] MEDS: MAGNESIUM OXIDE 400 MG TAB PEG/G-TUBE SCH (09:49)
[2018-06-04] MEDS: AMANTADINE HCL PEG/G-TUBE SCH ×2 (09:49→22:32)
[2018-06-04] MEDS: PANTOPRAZOLE SODIUM 40 MG GRANULE PKT PEG/G-TUBE SCH (09:52)
[2018-06-04] MEDS: OXcarbazepine 300MG/5ML SUSP 15,000 MG/250 ML BOTTLE PEG/G-TUBE SCH ×2 (09:52→22:33)
[2018-06-04] MEDS: METOPROLOL TARTRATE 25 MG TAB PEG/G-TUBE SCH ×2 (09:52→22:34)
[2018-06-04] MEDS: MUPIROCIN 2% OINT 22 GM TUBE TOPICAL SCH ×2 (09:52→22:34)
[2018-06-04] MEDS: FERROUS SULFATE ORAL ELIXIR 300 MG/5 ML CUP PEG/G-TUBE SCH (10:27)
--- NOTE | 2018-06-04 11:28 | P.PN ---
Subjective Progress Note Date: 06/04/18 Principal diagnosis: Pneumonia Pulmonary consultation dated 06/04/2018 58-year-old male with a history of advanced MS who is nonverbal. He apparently presented to the emergency room on June 03 from an extended care facility for possible pneumonia and sepsis. He apparently was was having increasing worse worsening cough and sweats and had a temperature elevation. He apparently was recently in this hospital for a urinary tract infection and pneumonia. He was treated with antibiotics and discharged home to the extended care facility. The patient is really not able to answer any questions. He does not appear to be in any distress. He does have a feeding tube in place. The patient's laying on his left side. No apparent distress at this time. In addition to MS, the patient has significant cognitive impairment he is nonverbal status post PEG tube placement for nutrition DVT in the arm indwelling catheter of the bladder incontinent of bowel with significant dysarthria and dysphagia. He is bedbound. Has a history of recent urinary tract infection and pneumonia as mentioned above. He is also apparently had infections with methicillin-resistant staph aureus. Additional procedures to include the PEG tube and a PICC line and antibiotics. A 14 point review of systems cannot be performed because of the patient's mental status. Objective - Vital Signs Vital signs: Vital Signs Temp 97.8 F 06/04/18 07:00 Pulse 81 06/04/18 07:00 Resp 18 06/04/18 07:00 BP 141/85 06/04/18 07:00 Pulse Ox 94 L 06/04/18 07:00 Intake & Output 06/03/18 06/04/18 06/04/18 18:59 06:59 18:59 Intake Total 30 60 Output Total 925 Balance -895 60 Weight 68 kg 73 kg Intake: Tube Feeding 30 60 Output: Urine 925 Other: Voiding Method Indwelling Catheter Indwelling Catheter # Bowel Movements 0 - Exam No acute distress, difficult to determine the patient's orientation. No apparent respiratory distress. HEENT examination is grossly unremarkable. Mucous membranes are moist. Neck supple. Full range of motion. No adenopathy thyromegaly or neck vein distention. Cardiovascular examination reveals regular rhythm rate. S1-S2 normal. No S3 or S4. No discernible murmur noted. Lungs reveal occasional rhonchi. Breath sounds equal. No wheezes. No crackles. Abdomen soft bowel sounds are heard. No masses or tenderness. Extremities are intact. No cyanosis clubbing or edema. Skin is without rash or lesion. Neurologic examination could not be adequately assessed. - Labs CBC & Chem 7: 06/04/18 08:59 06/04/18 08:59 Labs: Abnormal Lab Results - Last 24 Hours (Table) 06/04/18 06/04/18 06/04/18 Range/Units 07:24 08:59 08:59 RDW 15.6 H (11.5-15.5) % Plt Count 474 H (150-450) k/uL Sodium 134 L (137-145) mmol/L Glucose 118 H (74-99) mg/dL POC Glucose (mg/dL) 128 H (75-99) mg/dL Microbiology - Last 24 Hours (Table) 06/03/18 01:04 Urine Culture - Preliminary Urine,Catheterized Gram Neg Bacilli 06/03/18 00:28 Blood Culture - Preliminary Blood No Growth after 24 hours Assessment and Plan Assessment: Assessment Bilateral pneumonia, likely healthcare acquired Urinary tract infection History of severe MS History of recent urinary tract infection Multiple other medical problems and comorbidities as listed above including significant cognitive impairment Plan: Plan dated 06/04/2018 Chest x-ray labs and medications are reviewed. Chest x-ray does show bilateral infiltrates particularly in the right midlung and left upper lobe. In addition , the urine shows evidence of gram-negative bacilli. The patient has been seen by infectious disease. He has reported a particularly antibiotics. White count 8.9, hemoglobin 13 hematocrit 41.1 and platelet count 474,000. Electrolytes all look good except for the sodium being a bit low 134. Everything else appears normal. The gram-negative urinary has not yet been identified. Medications are reviewed. No discharge recommendations and suggestions are forthcoming. Prognosis is guarded. Head of bed should be elevated all times. The patient's at high aspiration risk. Time with Patient: Greater than 30
[2018-06-04 11:30] VITALS: BMI 24.5
[2018-06-04 12:27] LABS: Glucose,Whole Blood 129 mg/dL (75-99)
--- NOTE | 2018-06-04 14:01 | XR ---
EXAMINATION TYPE: XR chest 2V DATE OF EXAM: 06/04/2018 COMPARISON: 06/03/2018 INDICATION: Pneumonia TECHNIQUE: Frontal and lateral views of the chest are obtained. FINDINGS: The heart size is normal. The pulmonary vasculature is normal. There is increasing right lower lobe infiltrate. Correlate for worsening pneumonia. Continued follow- up is recommended. IMPRESSION: 1. Worsening right lower lobe infiltrate. Correlate for pneumonia. Continued follow-up is recommended
--- NOTE | 2018-06-04 16:18 | P.PN ---
Subjective 58-year-old admitted the for possible recurrence of pneumonia, my suspicion is low that patient had recurrent pneumonia. Patient is being treated for healthcare associated pneumonia. Discussed with infectious disease the recommending IV antibiotics considering his comorbidities urine showing gram- negative bacilli. Patient will receive a midline and will be discharged tomorrow with the Zosyn for about a week. Objective - Vital Signs Vital signs: Vital Signs Temp 98.7 F 06/04/18 15:00 Pulse 74 06/04/18 15:00 Resp 16 06/04/18 15:00 BP 139/87 06/04/18 15:00 Pulse Ox 97 06/04/18 15:00 Intake & Output 06/03/18 06/04/18 06/04/18 18:59 06:59 18:59 Intake Total 30 60 70 Output Total 925 Balance -895 60 70 Weight 68 kg 73 kg 73 kg Intake: Tube Feeding 30 60 70 Output: Urine 925 Other: Voiding Method Indwelling Catheter Indwelling Catheter Indwelling Catheter # Bowel Movements 0 - Exam PHYSICAL EXAMINATION: GENERAL: The patient is alert nonverbal unable to assess orientation although patient understands but cannot communicate back because of his the multiple sclerosis., not in any acute distress. Well developed, well nourished. HEENT: Pupils are round and equally reacting to light. EOMI. No scleral icterus. No conjunctival pallor. Normocephalic, atraumatic. No pharyngeal erythema. No thyromegaly. CARDIOVASCULAR: S1 and S2 present. No murmurs, rubs, or gallops. PULMONARY: Rhonchus breath sounds bilateral crackles no wheezing was appreciated ABDOMEN: Soft, nontender, nondistended, normoactive bowel sounds. No palpable organomegaly. MUSCULOSKELETAL: No joint swelling or deformity. EXTREMITIES: No cyanosis, clubbing, or pedal edema. NEUROLOGICAL: Gross neurological examination did not reveal any new focal deficits. A she is bedbound and multiple contractures which are chronic SKIN: No rashes. - Labs CBC & Chem 7: 06/04/18 08:59 06/04/18 08:59 Labs: Abnormal Lab Results - Last 24 Hours (Table) 06/04/18 06/04/18 06/04/18 Range/Units 07:24 08:59 08:59 RDW 15.6 H (11.5-15.5) % Plt Count 474 H (150-450) k/uL Sodium 134 L (137-145) mmol/L Glucose 118 H (74-99) mg/dL POC Glucose (mg/dL) 128 H (75-99) mg/dL 06/04/18 Range/Units 12:25 RDW (11.5-15.5) % Plt Count (150-450) k/uL Sodium (137-145) mmol/L Glucose (74-99) mg/dL POC Glucose (mg/dL) 129 H (75-99) mg/dL Microbiology - Last 24 Hours (Table) 06/03/18 01:04 Urine Culture - Preliminary Urine,Catheterized Gram Neg Bacilli 06/03/18 00:28 Blood Culture - Preliminary Blood No Growth after 24 hours Assessment and Plan Plan: -Pneumonia: Healthcare associated my suspicion is low that patient has recurrence of pneumonia. Patient is on Zosyn which will be continued --Decubitus ulcers bilateral knee stage I and sacrum healed wound does not appear to be infected and chronic -Otosclerosis leading to chronic debility -Dysphagia patient has a PEG tube in place acute site doesn't appear to be infected. -History of DVT and chronic A. fib anti-correlated on Coumadin suppurative component patient will be resumed on anticoagulation titrate Coumadin depending on INR. Levofloxacin doesn't track with Coumadin. -Hypertension
[2018-06-04] MEDS: WARFARIN 2 MG TAB PEG/G-TUBE SCH (16:57)
[2018-06-04 17:17] LABS: Glucose,Whole Blood 112 mg/dL (75-99)
--- NOTE | 2018-06-04 22:09 | PN ---
PROGRESS NOTE DATE OF SERVICE: 06/04/2018 REASON FOR FOLLOWUP: Pneumonia. INTERVAL HISTORY: The patient is afebrile. He seems to be breathing comfortably. He does not seem to be in any distress. No nausea, vomiting or any diarrhea has been noticed by the nursing staff. He was unable to provide any history. PHYSICAL EXAMINATION: Blood pressure is 139/87, pulse of 74, temperature 98.7. He is 97% on room air. General description is a middle-aged male lying in bed in no distress. RESPIRATORY SYSTEM: Unlabored breathing with decreased breath sounds in the bases. No wheeze. HEART: S1, S2. Regular rate and rhythm. ABDOMEN: Soft. No tenderness. EXTREMITIES: No edema of the feet. LABS: Hemoglobin is 13, white count of 8.9, BUN of 14, creatinine 0.81. Blood culture has been negative. Urine shows gram-negative bacilli. Sputum has not been collected. DIAGNOSTIC IMPRESSION AND PLAN: Patient being brought back to the hospital with a fever and congested cough. No fever has been recorded in the hospital. The patient did have a repeat x-ray showing worsening right lower lobe infiltrate; correlate for pneumonia. We will try to obtain a sputum to narrow down his antibiotics. In view of possible failure of oral Avelox, may recommend getting a midline for outpatient IV antibiotic. Continue with supportive care. MMODL / IJN: [id number] /
[2018-06-05 00:12] LABS: Glucose,Whole Blood 117 mg/dL (75-99)
[2018-06-05] MEDS: guaiFENesin SYRUP 100MG/5ML 200 MG/10 ML CUP PEG/G-TUBE SCH ×4 (00:45→16:51)
[2018-06-05] MEDS: PIPERACILLIN-TAZOBACTAM 3.375 GM in DEXTROSE/WATER 1 50ML.BAG IVPB SCH ×3 (00:45→16:50)
[2018-06-05] MEDS: GABAPENTIN PEG/G-TUBE SCH ×4 (02:51→20:44)
[2018-06-05] MEDS ORDERED: VANCOMYCIN TROUGH DUE 1 EACH MISC MISCELLANE ONE (05:00)
[2018-06-05 06:01] LABS: HCT 39.5 % (39.0-53.0); HGB 12.5 gm/dL (13.0-17.5); MCH 28.3 pg (25.0-35.0); MCHC 31.7 g/dL (31.0-37.0); MCV 89.2 fL (80.0-100.0); Mean Platelet Volume 6.7; Platelet Count 480 k/uL (150-450); RBC 4.42 m/uL (4.30-5.90); RDW 15.5 % (11.5-15.5); WBC 10.7 k/uL (3.8-10.6)
[2018-06-05] MEDS: VANCOMYCIN 1,000 MG in SODIUM CHLORIDE 0.9% 250 ML IVPB SCH (06:10)
[2018-06-05 06:14] LABS: Anion Gap 9 mmol/L; Blood Urea Nitrogen 14 mg/dL (9-20); Calcium 9.2 mg/dL (8.4-10.2); Carbon Dioxide 23 mmol/L (22-30); Chloride 103 mmol/L (98-107); Glucose 122 mg/dL (74-99); Potassium 4.3 mmol/L (3.5-5.1); Sodium 135 mmol/L (137-145)
[2018-06-05 07:56] LABS: Glucose,Whole Blood 114 mg/dL (75-99)
[2018-06-05] MEDS: AMANTADINE HCL PEG/G-TUBE SCH ×2 (08:57→20:44)
[2018-06-05] MEDS: BACLOFEN 10 MG TAB PEG/G-TUBE SCH ×3 (08:58→20:42)
[2018-06-05] MEDS: DOCUSATE ORAL SOLN 100 MG/10 ML CUP PEG/G-TUBE SCH ×2 (08:58→20:43)
[2018-06-05] MEDS: FERROUS SULFATE ORAL ELIXIR 300 MG/5 ML CUP PEG/G-TUBE SCH (08:58)
[2018-06-05] MEDS: METOPROLOL TARTRATE 25 MG TAB PEG/G-TUBE SCH ×2 (08:59→20:42)
[2018-06-05] MEDS: MAGNESIUM OXIDE 400 MG TAB PEG/G-TUBE SCH (08:59)
[2018-06-05] MEDS: MUPIROCIN 2% OINT 22 GM TUBE TOPICAL SCH ×2 (08:59→20:43)
[2018-06-05] MEDS: OXcarbazepine 300MG/5ML SUSP 15,000 MG/250 ML BOTTLE PEG/G-TUBE SCH ×2 (08:59→20:42)
[2018-06-05] MEDS: PANTOPRAZOLE SODIUM 40 MG GRANULE PKT PEG/G-TUBE SCH (09:00)
--- NOTE | 2018-06-05 10:52 | P.PN ---
Subjective Progress Note Date: 06/05/18 Principal diagnosis: Urinary tract infection, doubt pneumonia Pulmonary consultation dated 06/04/2018 58-year-old male with a history of advanced MS who is nonverbal. He apparently presented to the emergency room on June 03 from an extended care facility for possible pneumonia and sepsis. He apparently was was having increasing worse worsening cough and sweats and had a temperature elevation. He apparently was recently in this hospital for a urinary tract infection and pneumonia. He was treated with antibiotics and discharged home to the extended care facility. The patient is really not able to answer any questions. He does not appear to be in any distress. He does have a feeding tube in place. The patient's laying on his left side. No apparent distress at this time. In addition to MS, the patient has significant cognitive impairment he is nonverbal status post PEG tube placement for nutrition DVT in the arm indwelling catheter of the bladder incontinent of bowel with significant dysarthria and dysphagia. He is bedbound. Has a history of recent urinary tract infection and pneumonia as mentioned above. He is also apparently had infections with methicillin-resistant staph aureus. Additional procedures to include the PEG tube and a PICC line and antibiotics. On 06/05/2018 patient seen in follow-up on medical surgical floor. He is resting in bed, in no acute distress. Patient responds very minimally verbally , no obvious objective signs of distress. No dyspnea, room air pulse ox is 97% , he is afebrile, hemodynamically stable. Lung sounds positive for a few scattered rhonchi. No new chest x-ray today, yesterday's chest x-ray was reviewed by Dr. Hawkins, and opacity in the right lower lobe is likely related to atelectasis. His labs were reviewed, WBCs 10.7, hemoglobin is 12.5, electrolytes and renal profile relatively unremarkable. Patient remains on empiric antibiotics in the form of vancomycin and Zosyn. Urine cultures positive for pseudomonas aeruginosa, blood culture showed no coronary infectious service is following. Overall clinical findings and the chest x-ray support the diagnosis of pneumonia, and patient's symptoms are most likely related to underlying urinary tract infection. Objective - Vital Signs Vital signs: Vital Signs Temp 98.0 F 06/05/18 07:00 Pulse 79 06/05/18 07:00 Resp 16 06/05/18 07:00 BP 127/78 06/05/18 07:00 Pulse Ox 97 06/05/18 07:00 Intake & Output 06/04/18 06/05/18 06/05/18 18:59 06:59 18:59 Intake Total 120 450 Output Total 1000 0 Balance -880 450 Weight 73 kg 73 kg Intake: Tube Feeding 120 450 Output: Urine 1000 0 Other: Voiding Method Indwelling Catheter Indwelling Catheter # Bowel Movements 1 0 - Exam GENERAL EXAM: Alert, minimally verbal 58-year-old white male, comfortable in no apparent distress. HEAD: Normocephalic/atraumatic. EYES: Normal reaction of pupils, equal size. Conjunctiva pink, sclera white. NOSE: Clear with pink turbinates. THROAT: No erythema or exudates. NECK: No masses, no JVD, no thyroid enlargement, no adenopathy. CHEST: No chest wall deformity. Symmetrical expansion. LUNGS: Equal air entry with no crackles, wheeze, rhonchi or dullness. CVS: Regular rate and rhythm, normal S1 and S2, no gallops, no murmurs, no rubs ABDOMEN: Soft, nontender. No hepatosplenomegaly, normal bowel sounds, no guarding or rigidity. PEG tube is present, patient is on tube feedings. EXTREMITIES: No clubbing, no edema, no cyanosis, 2+ pulses and upper and lower extremities. MUSCULOSKELETAL: Muscle strength and tone normal. SPINE: No scoliosis or deformity SKIN: No rashes CENTRAL NERVOUS SYSTEM: Alert and oriented, he is nonverbal, unable to assess orientation. No focal deficits, tone is normal in all 4 extremities. PSYCHIATRIC: Alert and oriented, minimally verbal - Labs CBC & Chem 7: 06/05/18 05:26 06/05/18 05:26 Labs: Abnormal Lab Results - Last 24 Hours (Table) 06/04/18 06/04/18 06/05/18 Range/Units 12:25 17:03 00:09 WBC (3.8-10.6) k/uL Hgb (13.0-17.5) gm/dL Plt Count (150-450) k/uL Sodium (137-145) mmol/L Glucose (74-99) mg/dL POC Glucose (mg/dL) 129 H 112 H 117 H (75-99) mg/dL 06/05/18 06/05/18 06/05/18 Range/Units 05:26 05:26 07:51 WBC 10.7 H (3.8-10.6) k/uL Hgb 12.5 L (13.0-17.5) gm/dL Plt Count 480 H (150-450) k/uL Sodium 135 L (137-145) mmol/L Glucose 122 H (74-99) mg/dL POC Glucose (mg/dL) 114 H (75-99) mg/dL Microbiology - Last 24 Hours (Table) 06/03/18 01:04 Urine Culture - Final Urine,Catheterized Pseudomonas aeruginosa 06/03/18 00:28 Blood Culture - Preliminary Blood No Growth after 48 hours Assessment and Plan Plan: Assessment: Doubt pneumonia, right lower lobe atelectasis Urinary tract infection, culture positive for pseudomonas aeruginosa History of severe MS History of recent urinary tract infection Multiple other medical problems and comorbidities as listed above including significant cognitive impairment Plan: After reviewing labs, chest x-ray, and clinical findings, pneumonia is though to be unlikely, he does however have positive urinary tract infection with cultures positive for pseudomonas aeruginosa. He is also following, patient is afebrile, vital signs are stable, room air pulse ox is 97%, no dyspnea. Maintain aspiration precautions, continue with nebulized bronchodilators, infectious disease is managing the antibiotics. We will the patient on as- needed basis I performed a history & physical examination of the patient and discussed their management with my nurse practitioner, Naheed Pace. I reviewed the nurse practitioner's note and agree with the documented findings and plan of care. Lung sounds are positive for diffuse rhonchi. The findings and the impression was discussed with the patient. I attest to the documentation by the nurse practitioner. Time with Patient: Less than 30
[2018-06-05 11:41] LABS: Glucose,Whole Blood 127 mg/dL (75-99)
--- NOTE | 2018-06-05 14:03 | CDI ---
Last Revision, August 2017 Documentation Clarification Form Date: 06/05/2018 1:44:23 PM From: Jaja EspañaDARRON, CCDS Admit Date: 06/03/2018 2:02:00 AM Patient Name: Chris Marvin Visit Number: [id number] Discharge Date: ATTENTION: The Clinical Documentation Specialists (CDI) and [facility] Coding Staff appreciate your assistance in clarifying documentation. Please respond to the clarification below the line at the bottom and electronically sign. The CDI & [facility] Coding staff will review the response and follow-up if needed. Please note: Queries are made part of the Legal Health Record. If you have any questions, please contact the author of this message via ITS. Judi Lane MD: There is conflicting documentation regarding the diagnosis of UTI. Per the pulmonary progress note: "Urinary tract infection, culture positive for pseudomonas aeruginosa." The ED note states: Urinalysis with no obvious urinary tract infection. History/Risk factors: Patient was recently discharged on 05/28, returned to [facility] after treatment for CAUTI & possible aspiration pneumonia with sepsis. 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 Clinical Indicators: Urinalysis: clear, large esterase, WBC 42. Urine culture: Pseudomonas aeruginosa. Lab results: Hgb 12.7*, Pl Ct 537^, Na 130*, BUN 21^ Treatment: IV Azactam, IV Levaquin, IV Clindamycin, IV Vanco, Albuterol INH, Has PEG for meds & feeding. In your professional opinion, can you please clarify the etiology of the UTI, if known? Stein catheter UTI not related to catheter/urostomy Other condition, please specify Unable to determine If an infective organism is present, please specify cause and effect relationship if applicable. Possible UTI related to suprapubic catheter MTDD
[2018-06-05 14:23] LABS: INR 2.3 (<1.2)
--- NOTE | 2018-06-05 14:40 | P.DS ---
Providers Date of admission: 06/03/18 02:02 Expected date of discharge: 06/05/18 Attending physician: Dara Carey Consults: 06/03/18 13:40 Consult Physician Routine Consulting Provider: Royal Kumar Consult Reason/Comments: HCAP, recurrent Do you want consulting provider notified?: Yes 06/03/18 13:49 Consult Physician Routine Consulting Provider: Sonal Farah Consult Reason/Comments: reccurent pna Do you want consulting provider notified?: Yes Primary care physician: [place] [facility] Hospital Course: Final diagnoses -Pneumonia: Healthcare associated my suspicion is low that patient has recurrence of pneumonia. -Acute UTI, pseudomonas aeruginosa -Decubitus ulcers bilateral knee stage I and sacrum healed wound does not appear to be infected and chronic -Otosclerosis leading to chronic debility -Dysphagia patient has a PEG tube in place acute site doesn't appear to be infected. -History of DVT and chronic A. fib anticoagulated on Coumadin -Hypertension Hospital course:58-year-old admitted the for possible recurrence of pneumonia, my suspicion is low that patient had recurrent pneumonia. Patient is being treated for healthcare associated pneumonia. Discussed with infectious disease the recommending IV antibiotics considering his comorbidities urine showing gram -negative bacilli. Patient will received a midline for IV antibiotic therapy. Cleared by infectious disease and pulmonary for discharge. Patient is being discharged to [facility] in a stable condition with guarded prognosis. EXAMINATION: GENERAL: The patient is alert nonverbal unable to assess orientation although patient understands but cannot communicate back because of his the multiple sclerosis., not in any acute distress. CARDIOVASCULAR: S1 and S2 present. No murmurs, rubs, or gallops. PULMONARY: Rhonchus breath sounds bilateral crackles no wheezing was appreciated ABDOMEN: Soft, nontender, nondistended, normoactive bowel sounds. No palpable organomegaly. NEUROLOGICAL: Gross neurological examination did not reveal any new focal deficits;bedbound and multiple contractures which are chronic Microbiology 06/03/18 01:04 Urine,Catheterized Urine Culture - Final Pseudomonas aeruginosa 06/03/18 00:28 Blood Blood Culture - Preliminary No Growth after 48 hours The impression and plan of care has been dictated as directed. : I performed a history and examination of this patient, discussed the same with the dictator. I agree with the dictator's note ,documented as a scribe. Any additional findings or plans will be noted. Time taken: 35 minutes Patient Condition at Discharge: Stable Plan - Discharge Summary New Discharge Prescriptions: New Piperacillin Sodium/Tazobactam [Zosyn] 4.5 gm IVPB Q8HR #24 bag Continue Metoprolol Tartrate [Lopressor] 25 mg PEG/G-TUBE Q12H Magnesium Oxide [Magox 400] 400 mg PEG/G-TUBE DAILY Gabapentin 250mg/5ml 250 mg PEG/G-TUBE Q6H Ferrous Sulfate Oral Elixir [Feosol Liquid] 300 mg PEG/G-TUBE DAILY Cholecalciferol [Vitamin D3] 1,000 unit PEG/G-TUBE DAILY Docusate Oral Soln [Colace Oral Soln] 40 mg PEG/G-TUBE BID Amantadine 50mg/5ml 100 mg PEG/G-TUBE Q12H Ascorbic Acid [Vitamin C] 250 mg PEG/G-TUBE DAILY guaiFENesin [guaiFENesin Oral Solution] 200 mg PEG/G-TUBE Q6H Scopolamine 1.5MG/72Hr Patch [TransDerm Scop] 1 patch TRANSDERM Q72H OXcarbazepine 300MG/5ML SUSP [Trileptal Liquid] 300 mg PEG/G-TUBE Q12H Multivitamins, Thera [Multivitamin (formulary)] 1 tab PEG/G-TUBE DAILY Acetaminophen 500mg/15ml 160 mg PEG/G-TUBE Q6H PRN PRN Reason: Pain Baclofen 5 mg PEG/G-TUBE TID Nexium 20mg Packet 20 mg PEG/G-TUBE DAILY carBAMazepine [TEGretol Susp] 100 mg PEG/G-TUBE TID Furosemide [Lasix] 20 mg PEG/G-TUBE DAILY Mupirocin 2% Oint [Bactroban 2% Oint] 1 applic TOPICAL BID Warfarin [Coumadin] 4 mg PEG/G-TUBE DAILY Amino Acids/Protein Hydrolys [Pro-Stat Supplement] 30 ml PEG/G-TUBE DAILY Changed Ipratropium-Albuterol Nebulize [Duoneb 0.5 mg-3 mg/3 ml Soln] 3 ml INHALATION QID #0 Discontinued Moxifloxacin HCl [Avelox] 400 mg PEG/G-TUBE DAILY Discharge Medication List Ferrous Sulfate Oral Elixir [Feosol Liquid] 300 mg PEG/G-TUBE DAILY 08/07/17 [ History] Gabapentin 250mg/5ml 250 mg PEG/G-TUBE Q6H 08/07/17 [History] Magnesium Oxide [Magox 400] 400 mg PEG/G-TUBE DAILY 08/07/17 [History] Metoprolol Tartrate [Lopressor] 25 mg PEG/G-TUBE Q12H 08/07/17 [History] Amantadine 50mg/5ml 100 mg PEG/G-TUBE Q12H 12/28/17 [History] Ascorbic Acid [Vitamin C] 250 mg PEG/G-TUBE DAILY 12/28/17 [History] Cholecalciferol [Vitamin D3] 1,000 unit PEG/G-TUBE DAILY 12/28/17 [History] Docusate Oral Soln [Colace Oral Soln] 40 mg PEG/G-TUBE BID 12/28/17 [History] Scopolamine 1.5MG/72Hr Patch [TransDerm Scop] 1 patch TRANSDERM Q72H 12/28/17 [ History] guaiFENesin [guaiFENesin Oral Solution] 200 mg PEG/G-TUBE Q6H 12/28/17 [History] Acetaminophen 500mg/15ml 160 mg PEG/G-TUBE Q6H PRN 02/15/18 [History] Multivitamins, Thera [Multivitamin (formulary)] 1 tab PEG/G-TUBE DAILY 02/15/18 [History] OXcarbazepine 300MG/5ML SUSP [Trileptal Liquid] 300 mg PEG/G-TUBE Q12H 02/15/18 [History] Baclofen 5 mg PEG/G-TUBE TID 04/07/18 [History] Nexium 20mg Packet 20 mg PEG/G-TUBE DAILY 04/07/18 [History] Furosemide [Lasix] 20 mg PEG/G-TUBE DAILY 05/24/18 [History] Mupirocin 2% Oint [Bactroban 2% Oint] 1 applic TOPICAL BID 05/24/18 [History] carBAMazepine [TEGretol Susp] 100 mg PEG/G-TUBE TID 05/24/18 [History] Amino Acids/Protein Hydrolys [Pro-Stat Supplement] 30 ml PEG/G-TUBE DAILY [History] Warfarin [Coumadin] 4 mg PEG/G-TUBE DAILY 09/03/18 [History] Ipratropium-Albuterol Nebulize [Duoneb 0.5 mg-3 mg/3 ml Soln] 3 ml INHALATION QID #0 06/05/18 [Rx] Piperacillin Sodium/Tazobactam [Zosyn] 4.5 gm IVPB Q8HR #24 bag 06/05/18 [Rx] Follow up Appointment(s)/Referral(s): Matteo Hernandez MD [REFERRING] - 3 Days (While at subacute rehab) Brenden Olivares DO [Primary Care Provider] - As Needed Patient Instructions/Handouts: Urinary Tract Infection in Men (DC), Pneumonia ( DC) Activity/Diet/Wound Care/Special Instructions: Peg feedings resume Jevity at 50ml per hour and flush with 150ml water bolus every 4 hours. Head of bed elevated, Aspiration Precautions Midline IV in place, right upper arm. Chronic aggarwal, continue daily care per protocol. Change positions every 2 hours while awake. Full code status. MRSA precautions. cbc,bmp in 3 days PT/INR daily Discharge Disposition: TRANSFER TO SNF/ECF
--- NOTE | 2018-06-05 15:05 | PN ---
PROGRESS NOTE DATE OF SERVICE: 06/05/2018 REASON FOR FOLLOWUP: 1. Aspiration pneumonia. 2. Pseudomonas UTI. INTERVAL HISTORY: The patient is afebrile. He has been breathing comfortably. No distress. He is nonverbal. No nausea, no vomiting. No problem with tube feeds or any diarrhea reported by the nursing staff. PHYSICAL EXAMINATION: Blood pressure 127/78 with a pulse of 79, temperature of 98, he is 97% on room air. General description is a middle-aged male, lying in bed in no distress. RESPIRATORY SYSTEM: Unlabored breathing with decreased breath sounds at the bases. no wheeze. HEART: S1, S2. Regular rate and rhythm. ABDOMEN: Soft, no tenderness. LABS: Hemoglobin is 12.5, white count of 10.7, BUN of 14, creatinine 0.80. DIAGNOSTIC IMPRESSION AND PLAN: Patient with right lower lobe pneumonia, likely aspiration in etiology. His urine is showing Pseudomonas aeruginosa sensitive to Zosyn. Sputum could not be collected. Blood culture has been negative. Patient returned to midline. Will continue with Zosyn 4.5 q.8 for another 7 to 8 days to finish course of therapy. Continue supportive care. MMODL / IJN: [id number] /
[2018-06-05] MEDS: WARFARIN 2 MG TAB PEG/G-TUBE SCH (16:50)
[2018-06-05 18:17] LABS: Glucose,Whole Blood 114 mg/dL (75-99)
[2018-06-06 00:21] LABS: Glucose,Whole Blood 130 mg/dL (75-99)
[2018-06-06] MEDS: PIPERACILLIN-TAZOBACTAM 3.375 GM in DEXTROSE/WATER 1 50ML.BAG IVPB SCH ×3 (00:26→15:59)
[2018-06-06] MEDS: guaiFENesin SYRUP 100MG/5ML 200 MG/10 ML CUP PEG/G-TUBE SCH ×4 (00:29→16:04)
[2018-06-06] MEDS: GABAPENTIN PEG/G-TUBE SCH ×3 (03:53→15:36)
[2018-06-06 06:14] LABS: Glucose,Whole Blood 122 mg/dL (75-99)
[2018-06-06] MEDS: AMANTADINE HCL PEG/G-TUBE SCH (09:03)
[2018-06-06] MEDS: METOPROLOL TARTRATE 25 MG TAB PEG/G-TUBE SCH (09:03)
[2018-06-06] MEDS: DOCUSATE ORAL SOLN 100 MG/10 ML CUP PEG/G-TUBE SCH (09:03)
[2018-06-06] MEDS: OXcarbazepine 300MG/5ML SUSP 15,000 MG/250 ML BOTTLE PEG/G-TUBE SCH (09:03)
[2018-06-06] MEDS: PANTOPRAZOLE SODIUM 40 MG GRANULE PKT PEG/G-TUBE SCH (09:03)
[2018-06-06] MEDS: FERROUS SULFATE ORAL ELIXIR 300 MG/5 ML CUP PEG/G-TUBE SCH (09:04)
[2018-06-06] MEDS: MUPIROCIN 2% OINT 22 GM TUBE TOPICAL SCH (09:04)
[2018-06-06] MEDS: BACLOFEN 10 MG TAB PEG/G-TUBE SCH ×2 (09:04→16:00)
[2018-06-06] MEDS: MAGNESIUM OXIDE 400 MG TAB PEG/G-TUBE SCH (09:04)
[2018-06-06 09:48] LABS: Basophils % (A) 0 %; Eosinophils # (A) 0.4 k/uL (0-0.7); Eosinophils % (A) 4 %; HCT 39.6 % (39.0-53.0); HGB 12.5 gm/dL (13.0-17.5); Lymphocytes # (A) 1.2 k/uL (1.0-4.8); Lymphocytes % (A) 12 %; MCH 28.2 pg (25.0-35.0); MCHC 31.5 g/dL (31.0-37.0); MCV 89.6 fL (80.0-100.0); Mean Platelet Volume 6.9; Monocytes # (A) 0.6 k/uL (0-1.0); Monocytes % (A) 6 %; Neutrophils # (A) 7.6 k/uL (1.3-7.7); Neutrophils % (A) 76 %; Platelet Count 440 k/uL (150-450); RBC 4.42 m/uL (4.30-5.90); RDW 15.7 % (11.5-15.5)
[2018-06-06 10:22] LABS: Anion Gap 8 mmol/L; Blood Urea Nitrogen 15 mg/dL (9-20); Calcium 9.1 mg/dL (8.4-10.2); Carbon Dioxide 22 mmol/L (22-30); Chloride 109 mmol/L (98-107); Glucose 111 mg/dL (74-99); Potassium 4.5 mmol/L (3.5-5.1); Sodium 139 mmol/L (137-145)
--- NOTE | 2018-06-06 13:48 | PN ---
PROGRESS NOTE DATE OF SERVICE: 06/06/2018. REASON FOR FOLLOWUP: Aspiration pneumonia, Pseudomonas UTI. INTERVAL HISTORY: The patient is afebrile. He could have some congested cough though. No nausea or vomiting has been noticed. He is tolerating tube feeds per nursing staff. No diarrhea. He is unable to provide any history. EXAMINATION: Blood pressure is 151/72 with a pulse of 83, temperature 98.4. He is 94% on room air. GENERAL DESCRIPTION: A middle-aged male lying in bed in no distress. RESPIRATORY: Unlabored breathing. Coarse breath sounds in the bases, no wheeze. HEART: S1 and S2. Regular rate and rhythm. ABDOMEN: No tenderness. LABS: Hemoglobin 12.5, white count 10, BUN of 15, creatinine 0.84. Blood culture negative. Sputum was not collected. DIAGNOSTIC IMPRESSION AND PLAN: Patient admitted to the hospital with right lower lobe pneumonia, likely aspiration in etiology. Unfortunately no sputum could be provided. Blood culture negative. Urine did show Pseudomonas aeruginosa that is sensitive to Zosyn. Plan is for Zosyn 4.5 every 8 hours for another 7 to 8 days to finish course of therapy. White count is normal. Blood culture negative. MMODL / IJN: [id number] /
[2018-06-06 15:35] VITALS: BP 139/96; PULSE 75; RESP 16; TEMP 98.2
[2018-06-06] MEDS: SCOPOLAMINE TRANSDERM SCH (15:37)
[2018-06-06] MEDS: WARFARIN 2 MG TAB PEG/G-TUBE SCH (16:00)
--- NOTE | 2018-06-06 16:12 | P.PN ---
Subjective Progress Note Date: 06/06/18 Principal diagnosis: Urinary tract infection, doubt pneumonia Pulmonary consultation dated 06/04/2018 58-year-old male with a history of advanced MS who is nonverbal. He apparently presented to the emergency room on June 03 from an extended care facility for possible pneumonia and sepsis. He apparently was was having increasing worse worsening cough and sweats and had a temperature elevation. He apparently was recently in this hospital for a urinary tract infection and pneumonia. He was treated with antibiotics and discharged home to the extended care facility. The patient is really not able to answer any questions. He does not appear to be in any distress. He does have a feeding tube in place. The patient's laying on his left side. No apparent distress at this time. In addition to MS, the patient has significant cognitive impairment he is nonverbal status post PEG tube placement for nutrition DVT in the arm indwelling catheter of the bladder incontinent of bowel with significant dysarthria and dysphagia. He is bedbound. Has a history of recent urinary tract infection and pneumonia as mentioned above. He is also apparently had infections with methicillin-resistant staph aureus. Additional procedures to include the PEG tube and a PICC line and antibiotics. On 06/05/2018 patient seen in follow-up on medical surgical floor. He is resting in bed, in no acute distress. Patient responds very minimally verbally , no obvious objective signs of distress. No dyspnea, room air pulse ox is 97% , he is afebrile, hemodynamically stable. Lung sounds positive for a few scattered rhonchi. No new chest x-ray today, yesterday's chest x-ray was reviewed by Dr. Hawkins, and opacity in the right lower lobe is likely related to atelectasis. His labs were reviewed, WBCs 10.7, hemoglobin is 12.5, electrolytes and renal profile relatively unremarkable. Patient remains on empiric antibiotics in the form of vancomycin and Zosyn. Urine cultures positive for pseudomonas aeruginosa, blood culture showed no coronary infectious service is following. Overall clinical findings and the chest x-ray support the diagnosis of pneumonia, and patient's symptoms are most likely related to underlying urinary tract infection. On 06/06/2018 patient is seen in follow-up on medical surgical floor. He is resting in bed, in no acute distress, he only responds in 1 word answers, mostly yes or no. He denies any distress, denies any shortness of breath. No cough, on today's exam lung sounds are clear, no wheezing, no rhonchi, no rales noted. No new chest x-rays today, afebrile, room air pulse ox is 95%, hemodynamically stable. Patient's respirations are even and nonlabored. Patient has been treated with Zosyn for pseudomonas aeruginosa urinary tract infection, and the possibility of aspiration pneumonia. Clinically patient is stable, and from pulmonary standpoint could be considered for discharge to the subacute rehab today. Objective - Vital Signs Vital signs: Vital Signs Temp 98.2 F 06/06/18 15:00 Pulse 75 06/06/18 15:00 Resp 16 06/06/18 15:00 BP 139/96 06/06/18 15:00 Pulse Ox 97 06/06/18 15:00 Intake & Output 06/05/18 06/06/18 06/06/18 18:59 06:59 18:59 Intake Total 200 100 Output Total 0 Balance 200 100 Weight 72.5 kg 73 kg Intake: Tube Feeding 200 100 Output: Urine 0 Other: Voiding Method Indwelling Catheter Indwelling Catheter Indwelling Catheter # Bowel Movements 0 - Exam GENERAL EXAM: Alert, minimally verbal 58-year-old white male, comfortable in no apparent distress. HEAD: Normocephalic/atraumatic. EYES: Normal reaction of pupils, equal size. Conjunctiva pink, sclera white. NOSE: Clear with pink turbinates. THROAT: No erythema or exudates. NECK: No masses, no JVD, no thyroid enlargement, no adenopathy. CHEST: No chest wall deformity. Symmetrical expansion. LUNGS: Equal air entry with no crackles, wheeze, rhonchi or dullness. CVS: Regular rate and rhythm, normal S1 and S2, no gallops, no murmurs, no rubs ABDOMEN: Soft, nontender. No hepatosplenomegaly, normal bowel sounds, no guarding or rigidity. PEG tube is present, patient is on tube feedings. EXTREMITIES: No clubbing, no edema, no cyanosis, 2+ pulses and upper and lower extremities. MUSCULOSKELETAL: Muscle strength and tone normal. SPINE: No scoliosis or deformity SKIN: No rashes CENTRAL NERVOUS SYSTEM: Alert and oriented, he is nonverbal, unable to assess orientation. No focal deficits, tone is normal in all 4 extremities. PSYCHIATRIC: Alert and oriented, minimally verbal - Labs CBC & Chem 7: 18 09:31 06/06/18 09:31 Labs: Abnormal Lab Results - Last 24 Hours (Table) 06/05/18 06/06/18 06/06/18 Range/Units 18:05 00:19 06:13 Hgb (13.0-17.5) gm/dL RDW (11.5-15.5) % Chloride (98-107) mmol/L Glucose (74-99) mg/dL POC Glucose (mg/dL) 114 H 130 H 122 H (75-99) mg/dL 06/06/18 06/06/18 Range/Units 09:31 09:31 Hgb 12.5 L (13.0-17.5) gm/dL RDW 15.7 H (11.5-15.5) % Chloride 109 H (98-107) mmol/L Glucose 111 H (74-99) mg/dL POC Glucose (mg/dL) (75-99) mg/dL Microbiology - Last 24 Hours (Table) 06/03/18 00:28 Blood Culture - Preliminary Blood No Growth after 72 hours Assessment and Plan Plan: Assessment: Possible aspiration pneumonia Urinary tract infection, culture positive for pseudomonas aeruginosa History of severe MS History of recent urinary tract infection Multiple other medical problems and comorbidities as listed above including significant cognitive impairment Plan: Vital signs are stable, no acute events overnight, patient is on room air, has been afebrile, pulse ox is 95%, hemodynamically stable, lung sounds are clear, patient is stable, has been treated with Zosyn for pseudomonas aeruginosa urinary tract infection, and possibility of aspiration pneumonia. From pulmonary standpoint patient is stable for discharge back to [facility] today. I performed a history & physical examination of the patient and discussed their management with my nurse practitioner, Naheed Pace. I reviewed the nurse practitioner's note and agree with the documented findings and plan of care. Lung sounds are clear. The findings and the impression was discussed with the patient. I attest to the documentation by the nurse practitioner. Time with Patient: Less than 30
[2018-06-06 17:01] LABS: Glucose,Whole Blood 134 mg/dL (75-99)
--- NOTE | 2018-06-10 07:33 | CDI ---
Documentation Clarification Form Date: 06-10-18 From: Elise Teran Phone: If you have question, contact Deb Bergeron, Assignment Manager at M-F 8:30 am to 6pm Admit Date: 06/03/2018 2:02:00 AM Patient Name: Chris Marvin Visit Number: [id number] Discharge Date: 06-05-18 ATTENTION: The Clinical Documentation Specialists (CDI) and [facility] Coding Staff appreciate your assistance in clarifying documentation. Please respond to the clarification below the line at the bottom and electronically sign. The CDI & [facility] Coding staff will review the response and follow-up if needed. Please note: Queries are made part of the Legal Health Record. If you have any questions, please contact the author of this message via ITS. Judi Lane MD Conflicting documentation has been found in the medical record. On PN dated 06/05 it is written Doubt pneumonia, right lower lobe atelectasis On PN dated 06/06 it is written Patient admitted to the [facility] with right lower lobe pneumonia, likely aspiration in etiology On the DCS it is written Pneumonia: healthcare associated my suspicion is low that the patient has recurrence of pneumonia. Patient is being treated for healthcare associated pneumonia. History/Risk Factors: Previous admission for pneumonia and UTI Treatment: Zosyn In your opinion what is the most clinically appropriate diagnosis for this patient? Pneumonia Aspiration pnemonia Atelectasis only, no pneumonia Other explanation of clinical findings Unable to determine (no explanation for clinical findings) Thank you for your time. Patient doesn't have any new pneumonia the infiltrate is from the previous pneumonic consolidation which takes about 8 weeks to resolve MTDD
== END 2018-06-06 19:10 | DRG 698 ==
LOC: EC 00:16 → 4MS4W 02:02
PROVIDERS: ADMIT Hospitalist; ATTEND Hospitalist
PROC: 05HD33Z Insertion of Infusion Device into Right Cephalic Vein, Percutaneous Approach (ICD-10-PCS; principal; 2018-06-05 08:15)
PROC: B54MZZA Ultrasonography of Right Upper Extremity Veins, Guidance (ICD-10-PCS; 2018-06-05 08:15)
DX: T83.511A Infection and inflammatory reaction due to indwelling urethral catheter, initial encounter (principal); J18.9 Pneumonia, unspecified organism; N39.0 Urinary tract infection, site not specified; G35 Multiple sclerosis; F32.9 Major depressive disorder, single episode, unspecified; K21.9 Gastro-esophageal reflux disease without esophagitis; R47.1 Dysarthria and anarthria; I10 Essential (primary) hypertension; Y95 Nosocomial condition; R33.9 Retention of urine, unspecified; Y73.1 Therapeutic (nonsurgical) and rehabilitative gastroenterology and urology devices associated with adverse incidents; B96.5 Pseudomonas (aeruginosa) (mallei) (pseudomallei) as the cause of diseases classified elsewhere; R13.10 Dysphagia, unspecified; L89.891 Pressure ulcer of other site, stage 1; R15.9 Full incontinence of feces; H80.90 Unspecified otosclerosis, unspecified ear; R53.81 Other malaise; I48.2 Chronic atrial fibrillation; Z86.718 Personal history of other venous thrombosis and embolism; Z93.1 Gastrostomy status; Z74.01 Bed confinement status; Z86.14 Personal history of Methicillin resistant Staphylococcus aureus infection; Z79.899 Other long term (current) drug therapy; Z88.1 Allergy status to other antibiotic agents; Z79.01 Long term (current) use of anticoagulants; Z87.440 Personal history of urinary (tract) infections; Z87.01 Personal history of pneumonia (recurrent)
CPT/HCPCS: 36415; 36569; 71046; 76937; 80048; 80053; 80202; 81001; 83605; 84145; 85025; 85027; 85610; 85730; 87040; 87077; 87086; 87186; 99285

== ENCOUNTER 2018-07-25 12:54 | Inpatient (IN) | payer MEDICARE, OTHER ==
--- NOTE | 2018-07-25 13:11 | ED ---
Male Urogenital HPI - General Chief complaint: Urogenital Stated complaint: poss UTI Time Seen by Provider: 07/25/18 12:57 Source: EMS, RN notes reviewed, old records reviewed Mode of arrival: EMS Limitations: physical limitation - History of Present Illness Initial comments: Patient is a 58-year-old male presents emergency department from [facility] with possibility of possible UTI. Patient had full catheter replaced yesterday. Patient was sent for evaluation by urology due to the multiple times for Aggarwal catheter placement, 5 times within the past week. Apparently patient' s been having leakage and drainage from his urethral meatus and has a urethral tear. Patient was found to have a low-grade temperature in the white blood cell count was sent by his son and care facility. Was 11,000 that time. They report they noted bright red blood in the Aggarwal catheter. Patient has a history of progressive MS and is nonverbal. Patient can shake his head yes or no. He denies any complaints of pain at this time. Patient reports no coughing. - Related Data Home Medications Medication Instructions Recorded Confirmed Ferrous Sulfate Oral Elixir 300 mg PEG/G-TUBE DAILY 08/07/17 07/25/18 [Feosol Liquid] Gabapentin 250mg/5ml 250 mg PEG/G-TUBE Q6H 08/07/17 07/25/18 Magnesium Oxide [Magox 400] 400 mg PEG/G-TUBE DAILY 08/07/17 07/25/18 Metoprolol Tartrate [Lopressor] 25 mg PEG/G-TUBE Q12H 08/07/17 07/25/18 Amantadine 50mg/5ml 100 mg PEG/G-TUBE Q12H 12/28/17 07/25/18 Ascorbic Acid [Vitamin C] 250 mg PEG/G-TUBE DAILY 12/28/17 07/25/18 Cholecalciferol [Vitamin D3] 1,000 unit PEG/G-TUBE DAILY 12/28/17 07/25/18 Docusate Oral Soln [Colace Oral 40 mg PEG/G-TUBE BID 12/28/17 07/25/18 Soln] Scopolamine 1.5MG/72Hr Patch 1 patch TRANSDERM Q72H 12/28/17 07/25/18 [TransDerm Scop] guaiFENesin [guaiFENesin Oral 200 mg PEG/G-TUBE Q6H 12/28/17 07/25/18 Solution] Acetaminophen 500mg/15ml 160 mg PEG/G-TUBE Q6H PRN 02/15/18 07/25/18 Multivitamins, Thera [Multivitamin 1 tab PEG/G-TUBE DAILY 02/15/18 07/25/18 (formulary)] OXcarbazepine 300MG/5ML SUSP 300 mg PEG/G-TUBE Q12H 02/15/18 07/25/18 [Trileptal Liquid] Baclofen 5 mg PEG/G-TUBE TID 04/07/18 07/25/18 Nexium 20mg Packet 20 mg PEG/G-TUBE DAILY 04/07/18 07/25/18 Furosemide [Lasix] 20 mg PEG/G-TUBE DAILY 05/24/18 07/25/18 carBAMazepine [TEGretol Susp] 100 mg PEG/G-TUBE TID 05/24/18 07/25/18 Amino Acids/Protein Hydrolys 30 ml PEG/G-TUBE DAILY 06/03/18 07/25/18 [Pro-Stat Supplement] Cranberry 300mg 300 mg PEG/G-TUBE BID 07/25/18 07/25/18 Oxybutynin Chloride [Ditropan] 5 mg PEG/G-TUBE DAILY 07/25/18 07/25/18 Warfarin [Coumadin] 5 mg PEG/G-TUBE DAILY 07/25/18 07/25/18 Allergies Allergy/AdvReac Type Severity Reaction Status Date / Time meropenem [From Merrem] Allergy Rash/Hives Verified 07/25/18 13:18 Review of Systems ROS Statement: Those systems with pertinent positive or pertinent negative responses have been documented in the HPI. ROS Other: All systems not noted in ROS Statement are negative. Past Medical History Past Medical History: Deep Vein Thrombosis (DVT), GERD/Reflux, Hypertension, Musculoskeletal Disorder, Pneumonia, Renal Disease Additional Past Medical History / Comment(s): MS, cognitive impariment/ non verbal, NPO-peg tube,DVT-arm , IDC ,INCONT OF BOWEL. DYSARTHRIA/ANARTHRIA/ DYSPHAGIA. BEDBOUND, RACHEL LIFT TO W/C, neurogenic bladder,m History of Any Multi-Drug Resistant Organisms: MRSA Date of last positivie culture/infection: 10/21/17 MDRO Source:: URINE Additional Past Surgical History / Comment(s): PEG TUBE, HX OF GASTROSTOMY, PICC LINE Past Anesthesia/Blood Transfusion Reactions: Unable to Obtain Past Psychological History: Depression Smoking Status: Unknown if ever smoked Past Alcohol Use History: None Reported Past Drug Use History: None Reported - Past Family History Father Family Medical History: Unable to Obtain Mother Family Medical History: Unable to Obtain General Exam - General Exam Comments Initial Comments: 58-year-old male. Nonverbal. Evidence of contractures. Limitations: physical limitation General appearance: alert, in no apparent distress Head exam: Present: atraumatic, normocephalic, normal inspection Eye exam: Present: normal appearance, PERRL, EOMI. Absent: scleral icterus, conjunctival injection, periorbital swelling ENT exam: Present: normal exam, mucous membranes moist Neck exam: Present: normal inspection. Absent: tenderness, meningismus, lymphadenopathy Respiratory exam: Present: normal lung sounds bilaterally. Absent: respiratory distress, wheezes, rales, rhonchi, stridor Cardiovascular Exam: Present: regular rate, normal rhythm, normal heart sounds. Absent: systolic murmur, diastolic murmur, rubs, gallop, clicks GI/Abdominal exam: Present: soft, normal bowel sounds, other (Is a PEG tube.). Absent: distended, tenderness, guarding, rebound, rigid exam: Present: other (Patient has splint urethral meatus, blood clots noted at uretetheral meatus. Purulent drainage from aggarwal cath. ). Absent: normal inspection Extremities exam: Present: normal inspection, full ROM, normal capillary refill , other (Contractures over lower extremities.). Absent: tenderness, pedal edema , joint swelling, calf tenderness Back exam: Present: normal inspection, full ROM Neurological exam: Present: alert, oriented X3, CN II-XII intact Psychiatric exam: Present: normal affect, normal mood Skin exam: Present: warm, dry, intact, normal color. Absent: rash Course Vital Signs 07/25/18 12:56 Temperature 99 F Pulse Rate 76 Respiratory 18 Rate Blood Pressure 146/98 O2 Sat by Pulse 99 Oximetry Medical Decision Making - Medical Decision Making This Patient is a 58-year-old male, nonverbal with progressive MS presents emergency Department concerns for urinary tract infection. Patient has had a metal edge of Oilex. Over the past week he's had 5 Aggarwal catheter was placed due to urethral drainage and irritation. Patient this time was found to have a urinary tract infection over 182 white blood cells. Patient has had a low-grade temperature of 99.0. White blood cell count is mildly elevated at 11.7. Family reports that he normally has white blood cell count of 7000. No coughing or other symptoms noted. Patient denies any pain. Patient was given 1 dose of Rocephin. Family is concerned about the and likely catheter does not want this change replaced until will consult by urology. At this time we'll admit the Patient for UTI, and likely urology consult. - Lab Data Result diagrams: 07/25/18 13:40 07/25/18 13:40 Lab Results 07/25/18 07/25/18 07/25/18 Range/Units 13:40 13:40 13:40 WBC 11.7 H (3.8-10.6) k/uL RBC 4.70 (4.30-5.90) m/uL Hgb 13.3 (13.0-17.5) gm/dL Hct 41.0 (39.0-53.0) % MCV 87.2 (80.0-100.0) fL MCH 28.3 (25.0-35.0) pg MCHC 32.4 (31.0-37.0) g/dL RDW 15.4 (11.5-15.5) % Plt Count 323 (150-450) k/uL Neutrophils % 74 % Lymphocytes % 10 % Monocytes % 9 % Eosinophils % 3 % Basophils % 0 % Neutrophils # 8.7 H (1.3-7.7) k/uL Lymphocytes # 1.2 (1.0-4.8) k/uL Monocytes # 1.0 (0-1.0) k/uL Eosinophils # 0.3 (0-0.7) k/uL Basophils # 0.0 (0-0.2) k/uL Sodium 133 L (137-145) mmol/L Potassium 4.9 (3.5-5.1) mmol/L Chloride 95 L (98-107) mmol/L Carbon Dioxide 28 (22-30) mmol/L Anion Gap 10 mmol/L BUN 20 (9-20) mg/dL Creatinine 0.79 (0.66-1.25) mg/dL Est GFR (CKD-EPI)AfAm >90 (>60 ml/min/1.73 sqM) Est GFR (CKD-EPI)NonAf >90 (>60 ml/min/1.73 sqM) Glucose 103 H (74-99) mg/dL Calcium 8.8 (8.4-10.2) mg/dL Urine Color Yellow Urine Appearance Turbid (Clear) Urine pH 7.5 (5.0-8.0) Ur Specific [place] 1.006 (1.001-1.035) Urine Protein 1+ H (Negative) Urine Glucose (UA) Negative (Negative) Urine Ketones Negative (Negative) Urine Blood Large H (Negative) Urine Nitrite Negative (Negative) Urine Bilirubin Negative (Negative) Urine Urobilinogen <2.0 (<2.0) mg/dL Ur Leukocyte Esterase Large H (Negative) Urine RBC 17 H (0-5) /hpf Urine WBC 149 H (0-5) /hpf Urine WBC Clumps Rare H (None) /hpf Amorphous Sediment Occasional H (None) /hpf Urine Bacteria Many H (None) /hpf Urine Mucus Rare H (None) /hpf Disposition Clinical Impression: UTI (urinary tract infection), Urethral tear Disposition: ADMITTED IP TO THIS HOSP Condition: Stable Is patient prescribed a controlled substance at d/c from ED?: No Referrals: Nonstaff,Physician [Primary Care Provider] - 1-2 days Time of Disposition: 15:05
[2018-07-25 13:58] LABS: Basophils % (A) 0 %; Eosinophils # (A) 0.3 k/uL (0-0.7); Eosinophils % (A) 3 %; HGB 13.3 gm/dL (13.0-17.5); Lymphocytes # (A) 1.2 k/uL (1.0-4.8); Lymphocytes % (A) 10 %; MCH 28.3 pg (25.0-35.0); MCHC 32.4 g/dL (31.0-37.0); MCV 87.2 fL (80.0-100.0); Mean Platelet Volume 7.5; Monocytes % (A) 9 %; Neutrophils # (A) 8.7 k/uL (1.3-7.7); Neutrophils % (A) 74 %; Platelet Count 323 k/uL (150-450); RDW 15.4 % (11.5-15.5); WBC 11.7 k/uL (3.8-10.6)
[2018-07-25 14:01] LABS: Amorphous Sediment,Urine Occasional /hpf; Appearance,Urine Turbid (Clear); Bacteria,Urine Many /hpf; Bilirubin,Urine Negative (Negative); Blood,Urine Large (Negative); Color,Urine Yellow; Glucose,Urine (UA) Negative (Negative); Ketones,Urine Negative (Negative); Leukocyte Esterase,Urine Large (Negative); Mucus,Urine Rare /hpf; Nitrite,Urine Negative (Negative); PH, Urine 7.5 (5.0-8.0); Protein,Urine 1+ (Negative); RBC,Urine 17 /hpf (0-5); Specific Gravity,Urine 1.006 (1.001-1.035); Urobilinogen,Urine <2.0 mg/dL (<2.0); WBC,Urine 149 /hpf (0-5)
[2018-07-25 14:14] LABS: Anion Gap 10 mmol/L; Blood Urea Nitrogen 20 mg/dL (9-20); Calcium 8.8 mg/dL (8.4-10.2); Carbon Dioxide 28 mmol/L (22-30); Chloride 95 mmol/L (98-107); Glucose 103 mg/dL (74-99); Sodium 133 mmol/L (137-145)
[2018-07-25 14:15] LABS: Potassium 4.9 mmol/L (3.5-5.1)
[2018-07-25] MEDS ORDERED: SODIUM CHLORIDE 0.9% 1,000 ML IV ONE (15:01)
[2018-07-25] MEDS ORDERED: NALOXONE 0.4 MG/ML 1 ML VIAL IV PRN (15:06)
[2018-07-25] MEDS ORDERED: ACETAMINOPHEN ORAL SUSP 160 MG/5 ML CUP PEG/G-TUBE PRN (15:08)
[2018-07-25] MEDS: BACLOFEN 10 MG TAB PEG/G-TUBE SCH (18:37)
[2018-07-25] MEDS: carBAMazepine 200 MG TAB PEG/G-TUBE SCH ×2 (18:37→23:22)
[2018-07-25] MEDS: guaiFENesin SYRUP 100MG/5ML 200 MG/10 ML CUP PEG/G-TUBE SCH (18:38)
[2018-07-25] MEDS: SODIUM CHLORIDE 0.9% 1,000 ML IV SCH (18:38)
[2018-07-25] MEDS: GABAPENTIN PEG/G-TUBE SCH (18:41)
[2018-07-25] MEDS: CRANBERRY 300 MG PEG/G-TUBE SCH (23:10)
[2018-07-25] MEDS: METOPROLOL TARTRATE 25 MG TAB PEG/G-TUBE SCH (23:23)
[2018-07-25] MEDS: DOCUSATE ORAL SOLN 100 MG/10 ML CUP PEG/G-TUBE SCH (23:23)
[2018-07-25] MEDS: AMANTADINE HCL PEG/G-TUBE SCH (23:24)
[2018-07-25] MEDS: OXcarbazepine 300MG/5ML SUSP 15,000 MG/250 ML BOTTLE PEG/G-TUBE SCH (23:26)
[2018-07-26] MEDS: GABAPENTIN PEG/G-TUBE SCH ×5 (00:20→23:16)
[2018-07-26] MEDS: guaiFENesin SYRUP 100MG/5ML 200 MG/10 ML CUP PEG/G-TUBE SCH ×5 (00:28→23:15)
[2018-07-26] MEDS: BACLOFEN 10 MG TAB PEG/G-TUBE SCH ×4 (00:28→22:44)
[2018-07-26] MEDS: SODIUM CHLORIDE 0.9% 1,000 ML IV SCH ×3 (02:22→22:45)
[2018-07-26] MEDS: PANTOPRAZOLE 40 MG/10 ML VIAL IV SCH (08:33)
[2018-07-26] MEDS: METOPROLOL TARTRATE 25 MG TAB PEG/G-TUBE SCH ×2 (08:34→22:44)
[2018-07-26] MEDS: ASCORBIC ACID 500 MG TAB PEG/G-TUBE SCH (08:34)
[2018-07-26] MEDS: MAGNESIUM OXIDE 400 MG TAB PEG/G-TUBE SCH (08:34)
[2018-07-26] MEDS: CHOLECALCIFEROL 1,000 UNIT TAB PEG/G-TUBE SCH (08:36)
[2018-07-26] MEDS: OXYBUTYNIN CHLORIDE 5 MG TAB PEG/G-TUBE SCH (08:36)
[2018-07-26] MEDS: carBAMazepine 200 MG TAB PEG/G-TUBE SCH ×3 (08:36→22:44)
[2018-07-26] MEDS: FUROSEMIDE 20 MG TAB PEG/G-TUBE SCH (08:36)
[2018-07-26] MEDS: DOCUSATE ORAL SOLN 100 MG/10 ML CUP PEG/G-TUBE SCH ×2 (08:37→22:43)
[2018-07-26] MEDS: AMANTADINE HCL PEG/G-TUBE SCH ×2 (08:38→22:43)
[2018-07-26] MEDS: CRANBERRY 300 MG PEG/G-TUBE SCH ×2 (08:39→22:43)
[2018-07-26] MEDS: FERROUS SULFATE ORAL ELIXIR 300 MG/5 ML CUP PEG/G-TUBE SCH (08:39)
[2018-07-26] MEDS ORDERED: NEXIUM 20 MG PEG/G-TUBE SCH (09:00)
[2018-07-26] MEDS ORDERED: NON-FORMULARY DRUG (Amino Acids/Protein Hydrolys [Pro-Stat Supplement] 30 ML) PEG/G-TUBE SCH (09:00)
[2018-07-26 10:17] LABS: INR 1.9 (<1.2); Prothrombin Time 17.2 sec (9.0-12.0)
[2018-07-26] MEDS: OXcarbazepine 300MG/5ML SUSP 15,000 MG/250 ML BOTTLE PEG/G-TUBE SCH ×2 (10:25→22:44)
[2018-07-26 11:25] VITALS: BMI 22.1
[2018-07-26] MEDS: WARFARIN 5 MG TAB PEG/G-TUBE SCH (17:09)
--- NOTE | 2018-07-26 21:20 | P.HPIM ---
History of Present Illness H&P Date: 07/26/18 Chief Complaint: Possible UTI. [facility] Mr. Marvin is a 57-year-old male with a past medical history of multiple sclerosis, DVT, bed bound with contractures, dependence on tube feeds for nutrition, dysarthria and dysphagia [facility] for possibility of possible UTI. Patient had full catheter replaced yesterday. Patient was sent for evaluation by urology due to the multiple times for Stein catheter placement, 5 times within the past week. Apparently patient's been having leakage and drainage from his urethral meatus and has a urethral tear. Patient was found to have a low-grade temperature in the white blood cell count was sent by his son and care facility. Was 11,000 that time. They report they noted bright red blood in the Stein catheter. Patient has a history of progressive MS and is nonverbal. Patient can shake his head yes or no. He denies any complaints of pain at this time. Patient reports no coughing. . Patient is nonverbal and confused at baseline. Most of the history was taken from the sister who is at the bedside. She mentions that at baseline he understands few things and can follow simple commands that he is not able to do currently. Patient has a Stein's catheter in place chronically. He has a PEG tube in place for nutrition. He cannot eat or drink anything by mouth. Sodium 133 chloride 97 INR 1.9 UA showed cloudy WBC greater than 140 and large leukocyte esterase Patient was previously treated for Pseudomonas in her tract infection with Zosyn Review of Systems Constitutional: Patient denies any fever or chills . No generalized weakness or weight loss. Abdomen: Patient denied nausea vomiting and diarrhea and abdominal pain. Cardiovascular: Patient denies any chest pain or short of breath no palpitations. Respiratory: patient denied any cough is from production. No shortness of breath Neurologic: Patient denied any numbness or tingling headache. Completely of systems could not be obtained from the patient. Patient is nonverbal. Was able to understand but could not speak. Past Medical History Past Medical History: Deep Vein Thrombosis (DVT), GERD/Reflux, Hypertension, Musculoskeletal Disorder, Pneumonia, Renal Disease Additional Past Medical History / Comment(s): MS, cognitive impariment/ non verbal, NPO-peg tube,DVT-arm , IDC ,INCONT OF BOWEL. DYSARTHRIA/ANARTHRIA/ DYSPHAGIA. BEDBOUND, RACHEL LIFT TO W/C, neurogenic bladder,m History of Any Multi-Drug Resistant Organisms: MRSA Date of last positivie culture/infection: 10/21/17 MDRO Source:: URINE Additional Past Surgical History / Comment(s): PEG TUBE, HX OF GASTROSTOMY, PICC LINE Past Anesthesia/Blood Transfusion Reactions: Unable to Obtain Past Psychological History: Depression Additional Psychological History / Comment(s): PT RESIDES AT [facility] [phone] Smoking Status: Never smoker Past Alcohol Use History: None Reported Past Drug Use History: None Reported - Past Family History Father Family Medical History: Unable to Obtain Additional Family Medical History / Comment(s): patient is nonverbal Mother Family Medical History: Unable to Obtain Additional Family Medical History / Comment(s): patient is nonverbal Medications and Allergies Home Medications Medication Instructions Recorded Confirmed Type Ferrous Sulfate Oral Elixir 300 mg PEG/G-TUBE DAILY 08/07/17 07/25/18 History [Feosol Liquid] Gabapentin 250mg/5ml 250 mg PEG/G-TUBE Q6H 08/07/17 07/25/18 History Magnesium Oxide [Magox 400] 400 mg PEG/G-TUBE DAILY 08/07/17 07/25/18 History Metoprolol Tartrate [Lopressor] 25 mg PEG/G-TUBE Q12H 08/07/17 07/25/18 History Amantadine 50mg/5ml 100 mg PEG/G-TUBE Q12H 12/28/17 07/25/18 History Ascorbic Acid [Vitamin C] 250 mg PEG/G-TUBE DAILY 12/28/17 07/25/18 History Cholecalciferol [Vitamin D3] 1,000 unit PEG/G-TUBE DAILY 12/28/17 07/25/18 History Docusate Oral Soln [Colace Oral 40 mg PEG/G-TUBE BID 12/28/17 07/25/18 History Soln] Scopolamine 1.5MG/72Hr Patch 1 patch TRANSDERM Q72H 12/28/17 07/25/18 History [TransDerm Scop] guaiFENesin [guaiFENesin Oral 200 mg PEG/G-TUBE Q6H 12/28/17 07/25/18 History Solution] Acetaminophen 500mg/15ml 160 mg PEG/G-TUBE Q6H PRN 02/15/18 07/25/18 History Multivitamins, Thera [Multivitamin 1 tab PEG/G-TUBE DAILY 02/15/18 07/25/18 History (formulary)] OXcarbazepine 300MG/5ML SUSP 300 mg PEG/G-TUBE Q12H 02/15/18 07/25/18 History [Trileptal Liquid] Baclofen 5 mg PEG/G-TUBE TID 04/07/18 07/25/18 History Nexium 20mg Packet 20 mg PEG/G-TUBE DAILY 04/07/18 07/25/18 History Furosemide [Lasix] 20 mg PEG/G-TUBE DAILY 05/24/18 07/25/18 History carBAMazepine [TEGretol Susp] 100 mg PEG/G-TUBE TID 05/24/18 07/25/18 History Amino Acids/Protein Hydrolys 30 ml PEG/G-TUBE DAILY 06/03/18 07/25/18 History [Pro-Stat Supplement] Cranberry 300mg 300 mg PEG/G-TUBE BID 07/25/18 07/25/18 History Oxybutynin Chloride [Ditropan] 5 mg PEG/G-TUBE DAILY 07/25/18 07/25/18 History Warfarin [Coumadin] 5 mg PEG/G-TUBE DAILY 07/25/18 07/25/18 History Allergies Allergy/AdvReac Type Severity Reaction Status Date / Time meropenem [From Merrem] Allergy Rash/Hives Verified 07/25/18 13:18 Physical Exam Vitals: Vital Signs Temp Pulse Pulse Resp BP BP Pulse Ox 07/26/18 08:24 17 07/26/18 08:22 98.9 F 98 17 124/80 94 L 07/26/18 04:10 14 07/25/18 23:00 98.4 F 87 14 108/73 95 07/25/18 21:50 83 16 130/79 96 07/25/18 19:52 84 16 131/87 96 07/25/18 17:00 86 16 142/116 95 07/25/18 12:56 99 F 76 18 146/98 99 Intake and Output 07/25/18 07/26/18 07/26/18 22:59 06:59 14:59 Intake Total 188 Output Total 800 350 Balance -800 -162 Intake: Tube Feeding 188 Output: Urine 800 350 Other: Voiding Method Indwelling Catheter Indwelling Catheter PHYSICAL EXAMINATION: Patient is lying in the bed comfortably, no acute distress, awake alert but nonverbal HEENT: Normocephalic. Neck is supple. Pupils reactive. Nostrils clear. Oral cavity is moist. Ears reveal no drainage. Neck reveals no JVD, carotid bruits, or thyromegaly. CHEST EXAMINATION: Trachea is central. Symmetrical expansion. Lung prater clear to auscultation and percussion. CARDIAC: Normal S1, S2 with no gallops. No murmurs ABDOMEN: Soft. Bowel sounds normal. No organomegaly. No abdominal bruits. PEG tube in place. Stein catheter in place. Penile swelling. No active bleeding. Extremities: reveal no edema. No clubbing or cyanosis Neurologically awake, alert,. Patient is nonverbal. Skin: No rash or skin lesions. Psychiatric: Coperative. Could not be cystic completely Musculoskeletal: No joint swelling or deformity. Results CBC & Chem 7: 07/25/18 13:40 07/25/18 13:40 Labs: Abnormal Lab Results - Last 24 Hours (Table) 07/25/18 07/25/18 07/25/18 Range/Units 13:40 13:40 13:40 WBC 11.7 H (3.8-10.6) k/uL Neutrophils # 8.7 H (1.3-7.7) k/uL PT (9.0-12.0) sec INR (<1.2) Sodium 133 L (137-145) mmol/L Chloride 95 L (98-107) mmol/L Glucose 103 H (74-99) mg/dL Urine Protein 1+ H (Negative) Urine Blood Large H (Negative) Ur Leukocyte Esterase Large H (Negative) Urine RBC 17 H (0-5) /hpf Urine WBC 149 H (0-5) /hpf Urine WBC Clumps Rare H (None) /hpf Amorphous Sediment Occasional H (None) /hpf Urine Bacteria Many H (None) /hpf Urine Mucus Rare H (None) /hpf 07/26/18 Range/Units 09:33 WBC (3.8-10.6) k/uL Neutrophils # (1.3-7.7) k/uL PT 17.2 H (9.0-12.0) sec INR 1.9 H (<1.2) Sodium (137-145) mmol/L Chloride (98-107) mmol/L Glucose (74-99) mg/dL Urine Protein (Negative) Urine Blood (Negative) Ur Leukocyte Esterase (Negative) Urine RBC (0-5) /hpf Urine WBC (0-5) /hpf Urine WBC Clumps (None) /hpf Amorphous Sediment (None) /hpf Urine Bacteria (None) /hpf Urine Mucus (None) /hpf Microbiology - Last 24 Hours (Table) 07/25/18 13:40 Urine Culture - Preliminary Urine,Catheterized Thrombosis Risk Factor Assmnt - DVT/VTE Prophylaxis DVT/VTE Prophylaxis: Pharmacologic Prophylaxis ordered - Choose All That Apply Each Factor Represents 1 point: Age 41-60 years, Sepsis (< 1month), Serious lung disease incl. pneumonia (< 1month) Each Risk Factor Represents 3 Points: History of DVT/PE Thrombosis Risk Factor Assessment Total Risk Factor Score: 6 Thrombosis Risk Factor Assessment Level: High Risk Assessment and Plan Assessment: -Acute UTI complicated with chronic indwelling Stein catheter -Difficult Stein catheter insertion swelling around the glans penis. No active bleeding. 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 -History of DVT and chronic A. fib anticoagulated on Coumadin -Hypertension Hypovolemic hyponatremia Acute kidney [id number] Left upper extremity weakness Mild protein calorie malnutrition Chronic debility Plan: Patient be continued on antibiotics in the form of ceftriaxone. Follow-up urine culture reports. IV fluids. Currently no active bleeding in the Stein catheter. Consider urology evaluation if bleeding recurs. Continue the home medications and pain management. Further recommendations based on the clinical course. Coumadin dosing. Prognosis is guarded with problems and comorbid conditions. Time with Patient: Greater than 30
[2018-07-27] MEDS: GABAPENTIN PEG/G-TUBE SCH ×3 (06:22→16:44)
[2018-07-27] MEDS: guaiFENesin SYRUP 100MG/5ML 200 MG/10 ML CUP PEG/G-TUBE SCH ×3 (06:23→16:41)
[2018-07-27 08:16] LABS: Basophils % (A) 0 %; Eosinophils # (A) 0.4 k/uL (0-0.7); Eosinophils % (A) 6 %; HCT 35.6 % (39.0-53.0); HGB 11.8 gm/dL (13.0-17.5); Lymphocytes # (A) 1.1 k/uL (1.0-4.8); Lymphocytes % (A) 17 %; MCH 29.4 pg (25.0-35.0); MCHC 33.2 g/dL (31.0-37.0); MCV 88.6 fL (80.0-100.0); Mean Platelet Volume 7.7; Monocytes # (A) 0.6 k/uL (0-1.0); Monocytes % (A) 10 %; Neutrophils # (A) 3.9 k/uL (1.3-7.7); Neutrophils % (A) 63 %; Platelet Count 300 k/uL (150-450); RBC 4.02 m/uL (4.30-5.90); RDW 15.4 % (11.5-15.5); WBC 6.2 k/uL (3.8-10.6)
[2018-07-27 08:25] LABS: Anion Gap 9 mmol/L; Blood Urea Nitrogen 15 mg/dL (9-20); Calcium 8.7 mg/dL (8.4-10.2); Carbon Dioxide 23 mmol/L (22-30); Chloride 108 mmol/L (98-107); Glucose 109 mg/dL (74-99); Potassium 4.1 mmol/L (3.5-5.1); Sodium 140 mmol/L (137-145)
[2018-07-27] MEDS: BACLOFEN 10 MG TAB PEG/G-TUBE SCH ×3 (08:33→20:18)
[2018-07-27] MEDS: CHOLECALCIFEROL 1,000 UNIT TAB PEG/G-TUBE SCH (08:33)
[2018-07-27] MEDS: METOPROLOL TARTRATE 25 MG TAB PEG/G-TUBE SCH ×2 (08:33→20:18)
[2018-07-27] MEDS: MAGNESIUM OXIDE 400 MG TAB PEG/G-TUBE SCH (08:34)
[2018-07-27] MEDS: FUROSEMIDE 20 MG TAB PEG/G-TUBE SCH (08:34)
[2018-07-27] MEDS: ASCORBIC ACID 500 MG TAB PEG/G-TUBE SCH (08:34)
[2018-07-27] MEDS: OXYBUTYNIN CHLORIDE 5 MG TAB PEG/G-TUBE SCH (08:34)
[2018-07-27] MEDS: PANTOPRAZOLE 40 MG/10 ML VIAL IV SCH (08:35)
[2018-07-27] MEDS: OXcarbazepine 300MG/5ML SUSP 15,000 MG/250 ML BOTTLE PEG/G-TUBE SCH ×2 (08:35→20:18)
[2018-07-27] MEDS: carBAMazepine 200 MG TAB PEG/G-TUBE SCH ×3 (08:35→20:17)
[2018-07-27] MEDS: FERROUS SULFATE ORAL ELIXIR 300 MG/5 ML CUP PEG/G-TUBE SCH (08:36)
[2018-07-27] MEDS: DOCUSATE ORAL SOLN 100 MG/10 ML CUP PEG/G-TUBE SCH ×2 (08:36→20:17)
[2018-07-27] MEDS: AMANTADINE HCL PEG/G-TUBE SCH ×2 (08:37→20:17)
[2018-07-27] MEDS: CRANBERRY 300 MG PEG/G-TUBE SCH ×2 (08:37→20:19)
[2018-07-27] MEDS: SODIUM CHLORIDE 0.9% 1,000 ML IV SCH ×3 (08:38→20:17)
[2018-07-27 08:56] LABS: INR 1.5 (<1.2); Prothrombin Time 13.8 sec (9.0-12.0)
[2018-07-27] MEDS: WARFARIN 5 MG TAB PEG/G-TUBE SCH (16:42)
[2018-07-27] MEDS ORDERED: WARFARIN 2 MG TAB PEG/G-TUBE ONE (18:00)
[2018-07-28] MEDS: GABAPENTIN PEG/G-TUBE SCH ×5 (01:01→23:10)
[2018-07-28] MEDS: guaiFENesin SYRUP 100MG/5ML 200 MG/10 ML CUP PEG/G-TUBE SCH ×5 (01:03→23:09)
[2018-07-28] MEDS: SODIUM CHLORIDE 0.9% 1,000 ML IV SCH ×3 (05:58→23:10)
[2018-07-28] MEDS: BACLOFEN 10 MG TAB PEG/G-TUBE SCH ×3 (07:14→21:32)
[2018-07-28] MEDS: ASCORBIC ACID 500 MG TAB PEG/G-TUBE SCH (07:14)
[2018-07-28] MEDS: MAGNESIUM OXIDE 400 MG TAB PEG/G-TUBE SCH (07:15)
[2018-07-28] MEDS: OXYBUTYNIN CHLORIDE 5 MG TAB PEG/G-TUBE SCH (07:15)
[2018-07-28] MEDS: FUROSEMIDE 20 MG TAB PEG/G-TUBE SCH (07:15)
[2018-07-28] MEDS: CHOLECALCIFEROL 1,000 UNIT TAB PEG/G-TUBE SCH (07:16)
[2018-07-28] MEDS: METOPROLOL TARTRATE 25 MG TAB PEG/G-TUBE SCH ×2 (07:16→21:32)
[2018-07-28] MEDS: carBAMazepine 200 MG TAB PEG/G-TUBE SCH ×3 (07:16→21:32)
[2018-07-28] MEDS: AMANTADINE HCL PEG/G-TUBE SCH ×2 (07:17→21:33)
[2018-07-28] MEDS: FERROUS SULFATE ORAL ELIXIR 300 MG/5 ML CUP PEG/G-TUBE SCH (07:20)
[2018-07-28] MEDS: CRANBERRY 300 MG PEG/G-TUBE SCH ×2 (07:20→21:33)
[2018-07-28] MEDS: DOCUSATE ORAL SOLN 100 MG/10 ML CUP PEG/G-TUBE SCH ×2 (07:21→21:33)
[2018-07-28] MEDS: PANTOPRAZOLE 40 MG/10 ML VIAL IV SCH (07:22)
[2018-07-28 07:30] LABS: INR 1.7 (<1.2); Prothrombin Time 15.6 sec (9.0-12.0)
[2018-07-28] MEDS: OXcarbazepine 300MG/5ML SUSP 15,000 MG/250 ML BOTTLE PEG/G-TUBE SCH ×2 (07:31→21:32)
--- NOTE | 2018-07-28 10:15 | P.GSCN ---
History of Present Illness Consult date: 07/28/18 Reason for Consult: Neurogenic bladder History of present illness: The patient is a 58-year-old male admitted on 07/25 for evaluation of urine leaking around his catheter. The history is from review of the chart and a conversation with the patient's sister, Dot. He is unable to provide any history as he is noncommunicative other than nodding yes or no. The patient was diagnosed with multiple sclerosis 19 years ago. He has been managed with an indwelling catheter for 2 years. The catheter was placed due to incomplete bladder emptying. The patient is cared for at the [facility]. He has apparently had problems with leakage around the catheter and the catheter was reportedly changed 5 times in the last week with no improvement. There apparently was some slight blood in the urine on one occasion as well. Patient was taken to the emergency room for evaluation as there was concern that he may have a symptomatic infection. He was afebrile at the time of admission and has remained afebrile. He was started on Rocephin pending results of a urine culture. In addition to the urine leakage the patient has chronic fecal incontinence. Review of Systems - Constitutional Denies chills, Denies fever - Cardiovascular Denies shortness of breath - Respiratory Denies wheezing - Gastrointestinal Denies change in bowel habits - Genitourinary Reports as per HPI Past Medical History Past Medical History: Deep Vein Thrombosis (DVT), GERD/Reflux, Hypertension, Musculoskeletal Disorder, Pneumonia, Renal Disease Additional Past Medical History / Comment(s): MS, cognitive impariment/ non verbal, NPO-peg tube,DVT-arm , IDC ,INCONT OF BOWEL. DYSARTHRIA/ANARTHRIA/ DYSPHAGIA. BEDBOUND, RACHEL LIFT TO W/C, neurogenic bladder,m History of Any Multi-Drug Resistant Organisms: MRSA Year Discovered:: 10/21/17 MDRO Source:: URINE Additional Past Surgical History / Comment(s): PEG TUBE, HX OF GASTROSTOMY, PICC LINE Past Anesthesia/Blood Transfusion Reactions: Unable to Obtain Past Psychological History: Depression Additional Psychological History / Comment(s): PT RESIDES AT [facility] [phone] Smoking Status: Never smoker Past Alcohol Use History: None Reported Past Drug Use History: None Reported - Past Family History Father Family Medical History: Unable to Obtain Additional Family Medical History / Comment(s): patient is nonverbal Mother Family Medical History: Unable to Obtain Additional Family Medical History / Comment(s): patient is nonverbal Medications and Allergies Home Medications Medication Instructions Recorded Confirmed Type Ferrous Sulfate Oral Elixir 300 mg PEG/G-TUBE DAILY 08/07/17 07/25/18 History [Feosol Liquid] Gabapentin 250mg/5ml 250 mg PEG/G-TUBE Q6H 08/07/17 07/25/18 History Magnesium Oxide [Magox 400] 400 mg PEG/G-TUBE DAILY 08/07/17 07/25/18 History Metoprolol Tartrate [Lopressor] 25 mg PEG/G-TUBE Q12H 08/07/17 07/25/18 History Amantadine 50mg/5ml 100 mg PEG/G-TUBE Q12H 12/28/17 07/25/18 History Ascorbic Acid [Vitamin C] 250 mg PEG/G-TUBE DAILY 12/28/17 07/25/18 History Cholecalciferol [Vitamin D3] 1,000 unit PEG/G-TUBE DAILY 12/28/17 07/25/18 History Docusate Oral Soln [Colace Oral 40 mg PEG/G-TUBE BID 12/28/17 07/25/18 History Soln] Scopolamine 1.5MG/72Hr Patch 1 patch TRANSDERM Q72H 12/28/17 07/25/18 History [TransDerm Scop] guaiFENesin [guaiFENesin Oral 200 mg PEG/G-TUBE Q6H 12/28/17 07/25/18 History Solution] Acetaminophen 500mg/15ml 160 mg PEG/G-TUBE Q6H PRN 02/15/18 07/25/18 History Multivitamins, Thera [Multivitamin 1 tab PEG/G-TUBE DAILY 02/15/18 07/25/18 History (formulary)] OXcarbazepine 300MG/5ML SUSP 300 mg PEG/G-TUBE Q12H 02/15/18 07/25/18 History [Trileptal Liquid] Baclofen 5 mg PEG/G-TUBE TID 04/07/18 07/25/18 History Nexium 20mg Packet 20 mg PEG/G-TUBE DAILY 04/07/18 07/25/18 History Furosemide [Lasix] 20 mg PEG/G-TUBE DAILY 05/24/18 07/25/18 History carBAMazepine [TEGretol Susp] 100 mg PEG/G-TUBE TID 05/24/18 07/25/18 History Amino Acids/Protein Hydrolys 30 ml PEG/G-TUBE DAILY 06/03/18 07/25/18 History [Pro-Stat Supplement] Cranberry 300mg 300 mg PEG/G-TUBE BID 07/25/18 07/25/18 History Oxybutynin Chloride [Ditropan] 5 mg PEG/G-TUBE DAILY 07/25/18 07/25/18 History Warfarin [Coumadin] 5 mg PEG/G-TUBE DAILY 07/25/18 07/25/18 History Allergies Allergy/AdvReac Type Severity Reaction Status Date / Time meropenem [From Merrem] Allergy Rash/Hives Verified 07/25/18 13:18 Surgical - Exam Vital Signs Temp Pulse Resp BP Pulse Ox 99 F 76 18 146/98 99 07/25/18 12:56 07/25/18 12:56 07/25/18 12:56 07/25/18 12:56 07/25/18 12:56 - General well developed, well nourished, no distress, other - ENT no hearing loss - Neck no masses, no lymphadectomy - Respiratory normal respiratory effort - Abdomen Abdomen: soft, non tender, no organomegaly - Genitourinary testicles non-tender, other (An 18-Central African Stein catheter is in place. There is slight iatrogenic hypospadias with urethral meatus at the polanco. There is no blood present at the meatus and there is no evidence of meatal stenosis) - Musculoskeletal other (Contractures of the arms and legs related to multiple sclerosis) Results - Labs 07/27/18 07:39 07/27/18 07:39 Abnormal Lab Results - Last 24 Hours (Table) 07/28/18 Range/Units 07:00 PT 15.6 H (9.0-12.0) sec INR 1.7 H (<1.2) Microbiology - Last 24 Hours (Table) 07/25/18 13:40 Urine Culture - Final Urine,Catheterized Assessment and Plan (1) Incontinence of urine Narrative/Plan: The patient's urinary incontinence is most likely related to a combination of catheter irritation to the bladder and uncontrolled bladder contractions from his underlying multiple sclerosis. Placing a larger catheter is not the answer to the problem. The patient was on oxybutynin 5 mg daily and the dose of this will be increased to 5 mg 3 times a day in an attempt to reduce the frequency of bladder contractions. Current Visit: Yes Status: Acute Code(s): R32 - UNSPECIFIED URINARY INCONTINENCE SNOMED Code(s): 700437760 (2) Hypospadias, balanic Narrative/Plan: The patient's hypospadias is most likely related to catheter traction with gradual necrosis of the ventral urethra and the inability of the patient to reposition the catheter due to his multiple sclerosis. No specific treatment of this is necessary. Catheter changes should not be made more difficult by the location of the meatus. I discussed the pros and cons of placement of a suprapubic catheter with the patient's sister but unfortunately the suprapubic catheter may not stop incontinence through the urethra if the patient continues to have bladder spasms. For the time being I believe that the use of either a 16 or 18-Central African urethral catheter is the best option. Current Visit: Yes Status: Acute Code(s): Q54.0 - HYPOSPADIAS, BALANIC SNOMED Code(s): 788106553
[2018-07-28] MEDS: WARFARIN 5 MG TAB PEG/G-TUBE SCH (16:33)
[2018-07-28] MEDS: OXYBUTYNIN CHLORIDE 5 MG TAB PO SCH ×2 (16:33→21:32)
[2018-07-28] MEDS ORDERED: WARFARIN 2 MG TAB PEG/G-TUBE ONE (18:00)
--- NOTE | 2018-07-28 22:11 | P.PN ---
Subjective Progress Note Date: 07/27/18 Principal diagnosis: Acute urinary tract infection Leak from the Stein catheter Mr. Marvin is a 57-year-old male with a past medical history of multiple sclerosis, DVT, bed bound with contractures, dependence on tube feeds for nutrition, dysarthria and dysphagia sent in from his [facility] for possibility of possible UTI. Patient had full catheter replaced yesterday. Patient was sent for evaluation by urology due to the multiple times for Stein catheter placement, 5 times within the past week. Apparently patient's been having leakage and drainage from his urethral meatus and has a urethral tear. Patient was found to have a low-grade temperature in the white blood cell count was sent by his son and care facility. Was 11,000 that time. They report they noted bright red blood in the Stein catheter. Patient has a history of progressive MS and is nonverbal. Patient can shake his head yes or no. He denies any complaints of pain at this time. Patient reports no coughing. . Patient is nonverbal and confused at baseline. Most of the history was taken from the sister who is at the bedside. She mentions that at baseline he understands few things and can follow simple commands that he is not able to do currently. Patient has a Stein's catheter in place chronically. He has a PEG tube in place for nutrition. He cannot eat or drink anything by mouth. Sodium 133 chloride 97 INR 1.9 UA showed cloudy WBC greater than 140 and large leukocyte esterase Patient was previously treated for Pseudomonas in her tract infection with Zosyn 07/27/2018 Patient is lying in the bed comfortably. Awake alert but could not speak due to history of previous stroke and multiple sclerosis. Patient was seen by urology and increase the dose of Ditropan to 3 times daily due to increased urine frequency. Otherwise urine culture is negative. No fever no chills. No acute overnight issues. Current medications reviewed Objective - Vital Signs Vital signs: Vital Signs Temp 98.2 F 07/27/18 15:00 Pulse 88 07/27/18 07:00 Resp 17 07/27/18 07:50 BP 151/83 07/27/18 07:00 Pulse Ox 97 07/27/18 00:51 Intake & Output 07/27/18 07/27/18 07/28/18 06:59 18:59 06:59 Intake Total 2865 Output Total 1130 1450 Balance 1735 -1450 Intake: Intake, IV Titration 1530 Amount Sodium Chloride 0.9% 1, 1530 000 ml @ 100 mls/hr IV . Q10H REPLACED BY [facility] Rx#:[id number] Tube Feeding 1280 Other 55 Output: Urine 1130 1450 Other: Voiding Method Indwelling Catheter Indwelling Catheter # Voids 1 # Bowel Movements 0 # Emeses 0 - Exam PHYSICAL EXAMINATION: Patient is lying in the bed comfortably, no acute distress, awake alert but nonverbal HEENT: Normocephalic. Neck is supple. Pupils reactive. Nostrils clear. Oral cavity is moist. Ears reveal no drainage. Neck reveals no JVD, carotid bruits, or thyromegaly. CHEST EXAMINATION: Trachea is central. Symmetrical expansion. Lung prater clear to auscultation and percussion. CARDIAC: Normal S1, S2 with no gallops. No murmurs ABDOMEN: Soft. Bowel sounds normal. No organomegaly. No abdominal bruits. PEG tube in place. Stein catheter in place. Penile swelling. No active bleeding. Extremities: reveal no edema. No clubbing or cyanosis Neurologically awake, alert,. Patient is nonverbal. Skin: No rash or skin lesions. Psychiatric: Coperative. Could not be cystic completely Musculoskeletal: No joint swelling or deformity. - Labs CBC & Chem 7: 07/27/18 07:39 07/27/18 07:39 Labs: Abnormal Lab Results - Last 24 Hours (Table) 07/27/18 07/27/18 07/27/18 Range/Units 07:39 07:39 07:39 RBC 4.02 L (4.30-5.90) m/uL Hgb 11.8 L (13.0-17.5) gm/dL Hct 35.6 L (39.0-53.0) % PT 13.8 H (9.0-12.0) sec INR 1.5 H (<1.2) Chloride 108 H (98-107) mmol/L Glucose 109 H (74-99) mg/dL Assessment and Plan Assessment: -Acute UTI complicated with chronic indwelling Stein catheter -Difficult Stein catheter insertion swelling around the glans penis. No active bleeding. 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 -History of DVT and chronic A. fib anticoagulated on Coumadin -Hypertension Hypovolemic hyponatremia Acute kidney [id number] Left upper extremity weakness Mild protein calorie malnutrition Chronic debility Plan: Patient be continued on antibiotics in the form of ceftriaxone. Follow-up urine culture reports. IV fluids. Currently no active bleeding in the Stein catheter. Consult urology evaluation if bleeding recurs. Continue the home medications and pain management. Further recommendations based on the clinical course. Coumadin dosing. Prognosis is guarded with problems and comorbid conditions. Time with Patient: Greater than 30
--- NOTE | 2018-07-28 22:42 | P.PN ---
Subjective Progress Note Date: 07/28/18 Principal diagnosis: Acute urinary tract infection Leak from the Setin catheter Hypospadia Mr. Marvin is a 57-year-old male with a past medical history of multiple sclerosis, DVT, bed bound with contractures, dependence on tube feeds for nutrition, dysarthria and dysphagia sent in from his detention for possibility of possible UTI. Patient had full catheter replaced yesterday. Patient was sent for evaluation by urology due to the multiple times for Stein catheter placement, 5 times within the past week. Apparently patient's been having leakage and drainage from his urethral meatus and has a urethral tear. Patient was found to have a low-grade temperature in the white blood cell count was sent by his son and care facility. Was 11,000 that time. They report they noted bright red blood in the Stein catheter. Patient has a history of progressive MS and is nonverbal. Patient can shake his head yes or no. He denies any complaints of pain at this time. Patient reports no coughing. . Patient is nonverbal and confused at baseline. Most of the history was taken from the sister who is at the bedside. She mentions that at baseline he understands few things and can follow simple commands that he is not able to do currently. Patient has a Stein's catheter in place chronically. He has a PEG tube in place for nutrition. He cannot eat or drink anything by mouth. Sodium 133 chloride 97 INR 1.9 UA showed cloudy WBC greater than 140 and large leukocyte esterase Patient was previously treated for Pseudomonas in her tract infection with Zosyn 07/27/2018 Patient is lying in the bed comfortably. Awake alert but could not speak due to history of previous stroke and multiple sclerosis. Patient was seen by urology and increase the dose of Ditropan to 3 times daily due to increased urine frequency. Otherwise urine culture is negative. No fever no chills. No acute overnight issues. 07/28/2018 Patient is awake alert. Denied chest pain or shortness of breath. Denied any abdominal pain. Urine culture showed polymicrobial culture. Possible contaminant sample. Currently no fever no chills. Anticipate discharged to rehab tomorrow. Current medications reviewed Objective - Vital Signs Vital signs: Vital Signs Temp 98.1 F 07/28/18 07:00 Pulse 95 07/28/18 07:00 Resp 17 07/28/18 08:00 BP 136/87 07/28/18 07:00 Pulse Ox 98 07/27/18 23:20 Intake & Output 07/27/18 07/28/18 07/28/18 18:59 06:59 18:59 Intake Total 1000 Output Total 1450 1270 Balance -1450 -270 Intake: Tube Feeding 1000 Output: Urine 1450 1270 Other: Voiding Method Indwelling Catheter Diaper Diaper Indwelling Catheter Indwelling Catheter # Voids 1 # Bowel Movements 0 # Emeses 0 - Exam PHYSICAL EXAMINATION: Patient is lying in the bed comfortably, no acute distress, awake alert but nonverbal HEENT: Normocephalic. Neck is supple. Pupils reactive. Nostrils clear. Oral cavity is moist. Ears reveal no drainage. Neck reveals no JVD, carotid bruits, or thyromegaly. CHEST EXAMINATION: Trachea is central. Symmetrical expansion. Lung prater clear to auscultation and percussion. CARDIAC: Normal S1, S2 with no gallops. No murmurs ABDOMEN: Soft. Bowel sounds normal. No organomegaly. No abdominal bruits. PEG tube in place. Stein catheter in place. Penile swelling. No active bleeding. Extremities: reveal no edema. No clubbing or cyanosis Neurologically awake, alert,. Patient is nonverbal. Skin: No rash or skin lesions. Psychiatric: Coperative. Could not be cystic completely Musculoskeletal: No joint swelling or deformity. - Labs CBC & Chem 7: 07/27/18 07:39 07/27/18 07:39 Labs: Abnormal Lab Results - Last 24 Hours (Table) 07/28/18 Range/Units 07:00 PT 15.6 H (9.0-12.0) sec INR 1.7 H (<1.2) Microbiology - Last 24 Hours (Table) 07/25/18 13:40 Urine Culture - Final Urine,Catheterized Assessment and Plan Assessment: -Acute UTI complicated with chronic indwelling Stein catheter -Difficult Stein catheter insertion swelling around the glans penis. No active bleeding. 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 -History of DVT and chronic A. fib anticoagulated on Coumadin -Hypertension Hypovolemic hyponatremia Acute kidney [id number] Left upper extremity weakness Mild protein calorie malnutrition Chronic debility Plan: Patient be continued on antibiotics in the form of ceftriaxone. Follow-up urine culture reports. IV fluids. Currently no active bleeding in the Stein catheter. Consult urology evaluation if bleeding recurs. Continue the home medications and pain management. Further recommendations based on the clinical course. Coumadin dosing. Prognosis is guarded with problems and comorbid conditions. Time with Patient: Greater than 30
[2018-07-29 00:27] VITALS: RESP 18
[2018-07-29] MEDS: guaiFENesin SYRUP 100MG/5ML 200 MG/10 ML CUP PEG/G-TUBE SCH ×2 (05:12→12:34)
[2018-07-29] MEDS: GABAPENTIN PEG/G-TUBE SCH ×3 (05:13→12:34)
[2018-07-29] MEDS ORDERED: PANTOPRAZOLE SODIUM 40 MG GRANULE PKT PEG/G-TUBE SCH (09:00)
[2018-07-29] MEDS: CHOLECALCIFEROL 1,000 UNIT TAB PEG/G-TUBE SCH (09:04)
[2018-07-29] MEDS: ASCORBIC ACID 500 MG TAB PEG/G-TUBE SCH (09:04)
[2018-07-29] MEDS: CRANBERRY 300 MG PEG/G-TUBE SCH (09:04)
[2018-07-29] MEDS: METOPROLOL TARTRATE 25 MG TAB PEG/G-TUBE SCH (09:05)
[2018-07-29] MEDS: OXYBUTYNIN CHLORIDE 5 MG TAB PO SCH (09:05)
[2018-07-29] MEDS: BACLOFEN 10 MG TAB PEG/G-TUBE SCH (09:05)
[2018-07-29] MEDS: MAGNESIUM OXIDE 400 MG TAB PEG/G-TUBE SCH (09:06)
[2018-07-29] MEDS: FERROUS SULFATE ORAL ELIXIR 300 MG/5 ML CUP PEG/G-TUBE SCH (09:06)
[2018-07-29] MEDS: FUROSEMIDE 20 MG TAB PEG/G-TUBE SCH (09:06)
[2018-07-29] MEDS: DOCUSATE ORAL SOLN 100 MG/10 ML CUP PEG/G-TUBE SCH (09:07)
[2018-07-29] MEDS: OXcarbazepine 300MG/5ML SUSP 15,000 MG/250 ML BOTTLE PEG/G-TUBE SCH (09:08)
[2018-07-29] MEDS: AMANTADINE HCL PEG/G-TUBE SCH (09:09)
[2018-07-29] MEDS: carBAMazepine 200 MG TAB PEG/G-TUBE SCH (09:10)
[2018-07-29] MEDS: SODIUM CHLORIDE 0.9% 1,000 ML IV SCH (09:12)
[2018-07-29 10:37] LABS: INR 2.2 (<1.2); Prothrombin Time 20.1 sec (9.0-12.0)
--- NOTE | 2018-07-29 14:44 | P.DS ---
Providers Date of admission: 07/28/18 10:11 Expected date of discharge: 07/29/18 Attending physician: Judi Carey Consults: 07/27/18 15:40 Consult Physician Routine Consulting Provider: Kevin Miller Consult Reason/Comments: chronic aggarwal catheter. leaking/ erosion of penis Do you want consulting provider notified?: Yes Primary care physician: Physician Nonstaff Hospital Course: Discharge diagnosis -Acute UTI complicated with chronic indwelling Aggarwal catheter. Cultures showed polymicrobial specimen. -Hypospadia. Difficult Aggarwal catheter insertion swelling around the glans penis. No active bleeding. continue with 16 or 18-Wolof urethral catheter is the best option as per urology.. 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 -History of DVT and chronic A. fib anticoagulated on Coumadin -Hypertension Hypovolemic hyponatremia Acute kidney [id number] Left upper extremity weakness Mild protein calorie malnutrition Chronic debility Hospital course Mr. Marvin is a 57-year-old male with a past medical history of multiple sclerosis, DVT, bed bound with contractures, dependence on tube feeds for nutrition, dysarthria and dysphagia sent in from his senior living for possibility of possible UTI. Patient had full catheter replaced yesterday. Patient was sent for evaluation by urology due to the multiple times for Aggarwal catheter placement, 5 times within the past week. Apparently patient's been having leakage and drainage from his urethral meatus and has a urethral tear. Patient was found to have a low-grade temperature in the white blood cell count was sent by his son and care facility. Was 11,000 that time. They report they noted bright red blood in the Aggarwal catheter. Patient has a history of progressive MS and is nonverbal. Patient can shake his head yes or no. He denies any complaints of pain at this time. Patient reports no coughing. . Patient is nonverbal and confused at baseline. Most of the history was taken from the sister who is at the bedside. She mentions that at baseline he understands few things and can follow simple commands that he is not able to do currently. Patient has a Aggarwal's catheter in place chronically. He has a PEG tube in place for nutrition. He cannot eat or drink anything by mouth. Sodium 133 chloride 97 INR 1.9 UA showed cloudy WBC greater than 140 and large leukocyte esterase Patient was previously treated for Pseudomonas in her tract infection with Zosyn 07/27/2018 Patient is lying in the bed comfortably. Awake alert but could not speak due to history of previous stroke and multiple sclerosis. Patient was seen by urology and increase the dose of Ditropan to 3 times daily due to increased urine frequency. Otherwise urine culture is negative. No fever no chills. No acute overnight issues. 07/28/2018 Patient is awake alert. Denied chest pain or shortness of breath. Denied any abdominal pain. Urine culture showed polymicrobial culture. Possible contaminant sample. Currently no fever no chills. Anticipate discharged to rehab tomorrow. 07/29/2018 Patient is nonverbal but able to nod his head. No compressive chest pain or shortness of breath. No fever no chills. Blood pressure is controlled. Oxybutynin dose has been increased to 3 times daily. No need for antibiotics. Patient is stable to be discharged back to extended care facility. PHYSICAL EXAMINATION: Patient is lying in the bed comfortably, no acute distress, awake alert but nonverbal HEENT: Normocephalic. Neck is supple. Pupils reactive. Nostrils clear. Oral cavity is moist. Ears reveal no drainage. Neck reveals no JVD, carotid bruits, or thyromegaly. CHEST EXAMINATION: Trachea is central. Symmetrical expansion. Lung prater clear to auscultation and percussion. CARDIAC: Normal S1, S2 with no gallops. No murmurs ABDOMEN: Soft. Bowel sounds normal. No organomegaly. No abdominal bruits. PEG tube in place. Aggarwal catheter in place. Penile swelling. No active bleeding. Extremities: reveal no edema. No clubbing or cyanosis Neurologically awake, alert,. Patient is nonverbal. Skin: No rash or skin lesions. Psychiatric: Coperative. Could not be cystic completely Musculoskeletal: No joint swelling or deformity. Vital Signs 07/29/18 07:20 Temperature 98.7 F Pulse Rate [ 92 Pulse Oximetery ] Blood Pressure 153/86 [Right Arm] O2 Sat by Pulse 95 Oximetry Total time taken greater than 35 minutes including 18 minutes for counseling and coordination of care. Patient Condition at Discharge: Stable Plan - Discharge Summary Discharge Rx Participant: No New Discharge Prescriptions: New Oxybutynin Chloride [Ditropan] 5 mg PEG/G-TUBE TID #90 tab Continue Metoprolol Tartrate [Lopressor] 25 mg PEG/G-TUBE Q12H Magnesium Oxide [Magox 400] 400 mg PEG/G-TUBE DAILY Gabapentin 250mg/5ml 250 mg PEG/G-TUBE Q6H Ferrous Sulfate Oral Elixir [Feosol Liquid] 300 mg PEG/G-TUBE DAILY Cholecalciferol [Vitamin D3] 1,000 unit PEG/G-TUBE DAILY Docusate Oral Soln [Colace Oral Soln] 40 mg PEG/G-TUBE BID Amantadine 50mg/5ml 100 mg PEG/G-TUBE Q12H Ascorbic Acid [Vitamin C] 250 mg PEG/G-TUBE DAILY guaiFENesin [guaiFENesin Oral Solution] 200 mg PEG/G-TUBE Q6H Scopolamine 1.5MG/72Hr Patch [TransDerm Scop] 1 patch TRANSDERM Q72H OXcarbazepine 300MG/5ML SUSP [Trileptal Liquid] 300 mg PEG/G-TUBE Q12H Multivitamins, Thera [Multivitamin (formulary)] 1 tab PEG/G-TUBE DAILY Acetaminophen 500mg/15ml 160 mg PEG/G-TUBE Q6H PRN PRN Reason: Pain Baclofen 5 mg PEG/G-TUBE TID Nexium 20mg Packet 20 mg PEG/G-TUBE DAILY carBAMazepine [TEGretol Susp] 100 mg PEG/G-TUBE TID Furosemide [Lasix] 20 mg PEG/G-TUBE DAILY Amino Acids/Protein Hydrolys [Pro-Stat Supplement] 30 ml PEG/G-TUBE DAILY Warfarin [Coumadin] 5 mg PEG/G-TUBE DAILY Cranberry 300mg 300 mg PEG/G-TUBE BID Discontinued Oxybutynin Chloride [Ditropan] 5 mg PEG/G-TUBE DAILY Discharge Medication List Ferrous Sulfate Oral Elixir [Feosol Liquid] 300 mg PEG/G-TUBE DAILY 08/07/17 [ History] Gabapentin 250mg/5ml 250 mg PEG/G-TUBE Q6H 08/07/17 [History] Magnesium Oxide [Magox 400] 400 mg PEG/G-TUBE DAILY 08/07/17 [History] Metoprolol Tartrate [Lopressor] 25 mg PEG/G-TUBE Q12H 08/07/17 [History] Amantadine 50mg/5ml 100 mg PEG/G-TUBE Q12H 12/28/17 [History] Ascorbic Acid [Vitamin C] 250 mg PEG/G-TUBE DAILY 12/28/17 [History] Cholecalciferol [Vitamin D3] 1,000 unit PEG/G-TUBE DAILY 12/28/17 [History] Docusate Oral Soln [Colace Oral Soln] 40 mg PEG/G-TUBE BID 12/28/17 [History] Scopolamine 1.5MG/72Hr Patch [TransDerm Scop] 1 patch TRANSDERM Q72H 12/28/17 [ History] guaiFENesin [guaiFENesin Oral Solution] 200 mg PEG/G-TUBE Q6H 12/28/17 [History] Acetaminophen 500mg/15ml 160 mg PEG/G-TUBE Q6H PRN 02/15/18 [History] Multivitamins, Thera [Multivitamin (formulary)] 1 tab PEG/G-TUBE DAILY 02/15/18 [History] OXcarbazepine 300MG/5ML SUSP [Trileptal Liquid] 300 mg PEG/G-TUBE Q12H 02/15/18 [History] Baclofen 5 mg PEG/G-TUBE TID 04/07/18 [History] Nexium 20mg Packet 20 mg PEG/G-TUBE DAILY 04/07/18 [History] Furosemide [Lasix] 20 mg PEG/G-TUBE DAILY 05/24/18 [History] carBAMazepine [TEGretol Susp] 100 mg PEG/G-TUBE TID 05/24/18 [History] Amino Acids/Protein Hydrolys [Pro-Stat Supplement] 30 ml PEG/G-TUBE DAILY [History] Cranberry 300mg 300 mg PEG/G-TUBE BID 07/25/18 [History] Warfarin [Coumadin] 5 mg PEG/G-TUBE DAILY 07/25/18 [History] Oxybutynin Chloride [Ditropan] 5 mg PEG/G-TUBE TID #90 tab 07/29/18 [Rx] Follow up Appointment(s)/Referral(s): Katie Peres, [NON-STAFF] - As Needed Nonstaff,Physician [Primary Care Provider] - 1-2 days Discharge Disposition: TRANSFER TO SNF/ECF
[2018-07-29 15:31] VITALS: BP 127/78; PULSE 82; TEMP 98.6
--- NOTE | 2018-07-31 11:57 | CDI ---
Last Revision, August 2017 Documentation Clarification Form Date: 07/31/18 From: Katia Hernandez Deb Rubio, Service Line Coordinator Hours-8:30 am & 5 pm Marco Admit Date: 07/28/2018 10:11:00 AM Patient Name: Chris Marvin Visit Number: [id number] Discharge Date: 07/29/18 ATTENTION: The Clinical Documentation Specialists (CDI) and [facility] Coding Staff appreciate your assistance in clarifying documentation. Please respond to the clarification below the line at the bottom and electronically sign. The CDI & [facility] Coding staff will review the response and follow-up if needed. Please note: Queries are made part of the Legal Health Record. If you have any questions, please contact the author of this message via ITS. Yair Hernandez MD Acute UTI complicated with chronic indwelling Stein catheter has been documented in the H&P, PNs & DS. History/Risk factors: MS, bedbound, decubitus ulcer of coccyx and knee Per documentation in the H&P, PN/s & DS this patient was admitted with an indwelling Stein catheter. Clinical Indicators: T-99, P-86, BP-146/98 Urinalysis: lg blood, lg leukocyte esterase, RBC 17, WBC 149, bacteria many Urine culture: polymicrobic specimen Treatment: IV Rocephin In your professional opinion, can you please clarify the etiology of the UTI, if known? Stein catheter UTI not related to catheter Other condition, please specify Unable to determine If an infective organism is present, please specify cause and effect relationship if applicable. Please continue to document in your progress notes and discharge summary in order to capture severity of illness and risk of mortality. Include clinical findings that support your diagnosis. Stein catheter related UTI MTDD
--- NOTE | 2018-07-31 12:36 | CDI ---
Last Revision, August 2017 Documentation Clarification Form Date: 07/31/18 From: Katia David Deb Rubio, Big Data Engineer Hours-8:30 am & 5 pm MGabby Admit Date: 07/28/2018 10:11:00 AM Patient Name: Chris Marvin Visit Number: [id number] Discharge Date: 07/29/18 ATTENTION: The Clinical Documentation Specialists (CDI) and [facility] Coding Staff appreciate your assistance in clarifying documentation. Please respond to the clarification below the line at the bottom and electronically sign. The CDI & [facility] Coding staff will review the response and follow-up if needed. Please note: Queries are made part of the Legal Health Record. If you have any questions, please contact the author of this message via ITS. Yair Hernandez MD Acute kidney [id number] was documented in the H&P, both PN's and DS. History/Risk Factors: neurogenic bladder w incontince, UTI with chronic indwelling Stein, decubitus sacral ulcer, MS, bedridden BUN: 20, 15 CR: 0.79, 0.68 Treatment: IVF's KIDGO defines MOUNA as the occurrence of any 1 of the following: Increase in serum creatinine level by 0.3 mg/dl, measured prospectively by at least 2 separate levels obtained within 48 hrs, or Increase in serum creatinine level to 1.5 times baseline or greater, which is known or presumed to have occurred within the prior 7 days, or A urine volume of less than 0.5 ml/kg/h for 6 hours or longer. In order to capture the severity of condition, please clarify if the condition signifies: Acute kidney injury ruled in Acute kidney injury ruled out Other, please specify Unable to determine Please continue to document in your progress notes and discharge summary in order to capture severity of illness and risk of mortality. Include clinical findings that support your diagnosis. Acute kidney injury ruled out MTDD
== END 2018-07-29 15:49 | DRG 699 ==
LOC: EC 12:54 → 3NMEDONC 15:38 → 4SSUR 20:18 → OBSVTOIN 07-28 10:11 → 4SSUR 07-29 13:58
PROVIDERS: ADMIT Internal Medicine; ATTEND Internal Medicine
DX: T83.511A Infection and inflammatory reaction due to indwelling urethral catheter, initial encounter (principal); S37.33XA Laceration of urethra, initial encounter; E87.1 Hypo-osmolality and hyponatremia; E44.1 Mild protein-calorie malnutrition; N39.0 Urinary tract infection, site not specified; L89.152 Pressure ulcer of sacral region, stage 2; G35 Multiple sclerosis; R13.10 Dysphagia, unspecified; N31.9 Neuromuscular dysfunction of bladder, unspecified; L89.891 Pressure ulcer of other site, stage 1; R15.9 Full incontinence of feces; I69.322 Dysarthria following cerebral infarction; I69.391 Dysphagia following cerebral infarction; R40.2362 Coma scale, best motor response, obeys commands, at arrival to emergency department; R40.2142 Coma scale, eyes open, spontaneous, at arrival to emergency department; R40.2242 Coma scale, best verbal response, confused conversation, at arrival to emergency department; K21.9 Gastro-esophageal reflux disease without esophagitis; I10 Essential (primary) hypertension; T83.031A Leakage of indwelling urethral catheter, initial encounter; N39.498 Other specified urinary incontinence; Q54.9 Hypospadias, unspecified; M24.50 Contracture, unspecified joint; H80.90 Unspecified otosclerosis, unspecified ear; R53.81 Other malaise; Z74.01 Bed confinement status; Z79.01 Long term (current) use of anticoagulants; Z79.899 Other long term (current) drug therapy; Z88.1 Allergy status to other antibiotic agents; Z87.01 Personal history of pneumonia (recurrent); Z86.718 Personal history of other venous thrombosis and embolism; Z93.1 Gastrostomy status; Z86.14 Personal history of Methicillin resistant Staphylococcus aureus infection; Z86.59 Personal history of other mental and behavioral disorders; Y84.6 Urinary catheterization as the cause of abnormal reaction of the patient, or of later complication, without mention of misadventure at the time of the procedure
CPT/HCPCS: 36415; 80048; 81001; 85025; 85610; 87086; 96361; 96365; 99285

== ENCOUNTER 2018-11-09 09:31 | Inpatient (IN) | payer MEDICARE, OTHER ==
[2018-11-09] MEDS ORDERED: IBUPROFEN IV 600 MG in SODIUM CHLORIDE 0.9% 250 ML IV STA (10:30)
--- NOTE | 2018-11-09 11:00 | XR ---
EXAMINATION TYPE: XR chest 2V DATE OF EXAM: 11/09/2018 COMPARISON: Chest radiograph 06/04/2018 HISTORY: Fever, altered mental status TECHNIQUE: Frontal and lateral views of the chest are obtained. FINDINGS: The cardiac measles silhouette is stable in the interval. Interval development of linear opacity in the right midlung. There is no pleural effusion or pneumoth orax. Increased interstitial markings are again seen diffusely. Osseous structures are unchanged. IMPRESSION: Interval development of linear right midlung opacity. Findings may relate to atelectasis however ear ly pneumonia may have a similar appearance. Serial radiographs may aid in further evaluation.
--- NOTE | 2018-11-09 11:21 | ED ---
General Adult HPI - General Chief complaint: Recheck/Abnormal Lab/Rx Stated complaint: FEEDING TUBE PLUGGED, R/O SEPSIS/UTI Time Seen by Provider: 11/09/18 09:43 Source: patient, RN notes reviewed, old records reviewed Mode of arrival: ambulatory Limitations: physical limitation - History of Present Illness Initial comments: Patient is 58-year-old male with a history of severe multiple sclerosis. He is nonverbal. He presents today for complaints of a plugged feeding tube possible urinary tract infection and fever. Patient does have a Stein catheter, his last one was placed by urology due to urethral meatus tear.. Patient has been admitted in the recent past for urinary tract infections. - Related Data Home Medications Medication Instructions Recorded Confirmed Gabapentin 250mg/5ml 250 mg PEG/G-TUBE Q12H 08/07/17 11/09/18 Metoprolol Tartrate [Lopressor] 25 mg PEG/G-TUBE Q12H 08/07/17 11/09/18 Amantadine 50mg/5ml 100 mg PEG/G-TUBE Q12H 12/28/17 11/09/18 Ascorbic Acid [Vitamin C] 250 mg PEG/G-TUBE DAILY 12/28/17 11/09/18 Cholecalciferol [Vitamin D3] 1,000 unit PEG/G-TUBE DAILY 12/28/17 11/09/18 Docusate Oral Soln [Colace Oral 40 mg PEG/G-TUBE BID 12/28/17 11/09/18 Soln] Scopolamine 1.5MG/72Hr Patch 1 patch TRANSDERM Q72H 12/28/17 11/09/18 [TransDerm Scop] guaiFENesin [guaiFENesin Oral 200 mg PEG/G-TUBE Q6H 12/28/17 11/09/18 Solution] Acetaminophen 500mg/15ml 160 mg PEG/G-TUBE Q6H PRN 02/15/18 11/09/18 Baclofen 5 mg PEG/G-TUBE TID 04/07/18 11/09/18 Nexium 20mg Packet 20 mg PEG/G-TUBE DAILY 04/07/18 11/09/18 Furosemide [Lasix] 20 mg PEG/G-TUBE DAILY 05/24/18 11/09/18 carBAMazepine [TEGretol Susp] 200 mg PEG/G-TUBE BID 05/24/18 11/09/18 Cranberry Cap 405mg 405 mg PEG/G-TUBE BID 11/09/18 11/09/18 Pregabalin [Lyrica] 75 mg PEG/G-TUBE DAILY@0900 11/09/18 11/09/18 Pregabalin [Lyrica] 150 mg PO HS@2100 11/09/18 11/09/18 Sulfamethox-Tmp 800-160Mg [Bactrim 1 tab PEG/G-TUBE Q12HR 11/09/18 11/09/18 DS 800-160 mg] Warfarin [Coumadin] 2.5 mg PEG/G-TUBE DAILY@1700 11/09/18 11/09/18 Warfarin [Coumadin] 3 mg PEG/G-TUBE DAILY@1700 11/09/18 11/09/18 Previous Rx's Medication Instructions Recorded Oxybutynin Chloride [Ditropan] 5 mg PEG/G-TUBE TID #90 tab 07/29/18 Allergies Allergy/AdvReac Type Severity Reaction Status Date / Time meropenem [From Merrem] Allergy Rash/Hives Verified 11/09/18 11:18 Review of Systems ROS Statement: Those systems with pertinent positive or pertinent negative responses have been documented in the HPI. ROS Other: All systems not noted in ROS Statement are negative. Past Medical History Past Medical History: Deep Vein Thrombosis (DVT), GERD/Reflux, Hypertension, Musculoskeletal Disorder, Pneumonia, Renal Disease Additional Past Medical History / Comment(s): MS, cognitive impariment/ non verbal, NPO-peg tube,DVT-arm , IDC ,INCONT OF BOWEL. DYSARTHRIA/ANARTHRIA/ DYSPHAGIA. BEDBOUND, RACHEL LIFT TO W/C, neurogenic bladder,m History of Any Multi-Drug Resistant Organisms: MRSA Date of last positivie culture/infection: 10/21/17 MDRO Source:: URINE Additional Past Surgical History / Comment(s): PEG TUBE, HX OF GASTROSTOMY, PICC LINE Past Anesthesia/Blood Transfusion Reactions: Unable to Obtain Past Psychological History: Depression Smoking Status: Never smoker Past Alcohol Use History: None Reported Past Drug Use History: None Reported - Past Family History Father Family Medical History: Unable to Obtain Additional Family Medical History / Comment(s): patient is nonverbal Mother Family Medical History: Unable to Obtain Additional Family Medical History / Comment(s): patient is nonverbal General Exam - General Exam Comments Initial Comments: 58-year-old male. Nonverbal. Limitations: physical limitation Head exam: Present: atraumatic, normocephalic, normal inspection Eye exam: Present: normal appearance, PERRL, EOMI. Absent: scleral icterus, conjunctival injection, periorbital swelling ENT exam: Present: normal exam, mucous membranes moist Neck exam: Present: normal inspection. Absent: tenderness, meningismus, lymphadenopathy Respiratory exam: Present: normal lung sounds bilaterally. Absent: respiratory distress, wheezes, rales, rhonchi, stridor Cardiovascular Exam: Present: regular rate, normal rhythm, normal heart sounds. Absent: systolic murmur, diastolic murmur, rubs, gallop, clicks GI/Abdominal exam: Present: soft, normal bowel sounds, other (Feeding tube is plugged. ). Absent: distended, tenderness, guarding, rebound, rigid exam: Present: other (Refill meatus tear noted). Absent: normal inspection Extremities exam: Present: normal inspection, full ROM, normal capillary refill. Absent: tenderness, pedal edema, joint swelling, calf tenderness Back exam: Present: normal inspection Neurological exam: Present: alert, oriented X3, CN II-XII intact Psychiatric exam: Present: normal affect, normal mood Skin exam: Present: warm, dry, intact, normal color. Absent: rash Course Vital Signs 11/09/18 11/09/18 11/09/18 09:33 13:25 15:21 Temperature 100.3 F H 101.6 F H Pulse Rate 96 103 H 102 H Respiratory 24 20 18 Rate Blood Pressure 133/90 141/91 136/86 O2 Sat by Pulse 96 97 99 Oximetry - Reevaluation(s) Reevaluation #1: 11/09/18 15:58 Feeding tube was obtained from [facility]. Myself and Dr. Crespo Replace the feeding tube without difficulty. Patient tolerated procedure well. Medical Decision Making - Medical Decision Making 8-year-old male with history of severe MS is nonverbal presents emergency department today for complaints of fever concerns for urosepsis. He does have a retained fluid cavity was placed by urology. Urinalysis is shows signs of infection. His states sister is hesitant for us to replace the Stein because the last one was placed by urology. Patient also presented today with a obstructed feeding tube. After attempts of trying to flush the area with [employer] was continually unsuccessful. We eventually obtained the feeding tube from [facility] as this hospital is out of them. I replace the feeding tube without difficulty. Patient white blood cell count was within normal limits. Lactic acid is normal. Blood cultures were obtained. With signs of infection we did start the Patient on Rocephin. Urine culture is pending. Patient will be admitted this time for urosepsis. Is also felt the chest x-ray did show possibility of early developing pneumonia. He denies any symptoms of cough and congestion. - Lab Data Result diagrams: 11/09/18 13:25 11/09/18 12:11 Lab Results 11/09/18 11/09/18 11/09/18 Range/Units 12:01 12:11 12:11 WBC (3.8-10.6) k/uL RBC (4.30-5.90) m/uL Hgb (13.0-17.5) gm/dL Hct (39.0-53.0) % MCV (80.0-100.0) fL MCH (25.0-35.0) pg MCHC (31.0-37.0) g/dL RDW (11.5-15.5) % Plt Count (150-450) k/uL Neutrophils % % Lymphocytes % % Monocytes % % Eosinophils % % Basophils % % Neutrophils # (1.3-7.7) k/uL Lymphocytes # (1.0-4.8) k/uL Monocytes # (0-1.0) k/uL Eosinophils # (0-0.7) k/uL Basophils # (0-0.2) k/uL PT (9.0-12.0) sec INR (<1.2) APTT (22.0-30.0) sec Sodium 136 L (137-145) mmol/L Potassium 5.0 (3.5-5.1) mmol/L Chloride 104 (98-107) mmol/L Carbon Dioxide 23 (22-30) mmol/L Anion Gap 9 mmol/L BUN 20 (9-20) mg/dL Creatinine 0.87 (0.66-1.25) mg/dL Est GFR (CKD-EPI)AfAm >90 (>60 ml/min/1.73 sqM) Est GFR (CKD-EPI)NonAf >90 (>60 ml/min/1.73 sqM) Glucose 114 H (74-99) mg/dL Plasma Lactic Acid [place] 1.4 (0.7-2.0) mmol/L Calcium 8.7 (8.4-10.2) mg/dL Total Bilirubin 0.8 (0.2-1.3) mg/dL AST 50 (17-59) U/L ALT 30 (21-72) U/L Alkaline Phosphatase 90 (38-126) U/L Total Protein 7.3 (6.3-8.2) g/dL Albumin 3.5 (3.5-5.0) g/dL Urine Color Yellow Urine Appearance Cloudy (Clear) Urine pH 7.0 (5.0-8.0) Ur Specific [place] 1.010 (1.001-1.035) Urine Protein 1+ H (Negative) Urine Glucose (UA) Negative (Negative) Urine Ketones Negative (Negative) Urine Blood Small H (Negative) Urine Nitrite Positive (Negative) Urine Bilirubin Negative (Negative) Urine Urobilinogen <2.0 (<2.0) mg/dL Ur Leukocyte Esterase Large H (Negative) Urine WBC >182 H (0-5) /hpf Urine WBC Clumps Many H (None) /hpf Amorphous Sediment Few H (None) /hpf Urine Bacteria Moderate H (None) /hpf Hyaline Casts 3 H (0-2) /lpf Urine Mucus Rare H (None) /hpf 11/09/18 11/09/18 Range/Units 13:25 13:25 WBC 9.7 (3.8-10.6) k/uL RBC 5.06 (4.30-5.90) m/uL Hgb 14.1 (13.0-17.5) gm/dL Hct 44.1 (39.0-53.0) % MCV 87.1 (80.0-100.0) fL MCH 28.0 (25.0-35.0) pg MCHC 32.1 (31.0-37.0) g/dL RDW 14.7 (11.5-15.5) % Plt Count 220 (150-450) k/uL Neutrophils % 82 % Lymphocytes % 6 % Monocytes % 8 % Eosinophils % 2 % Basophils % 0 % Neutrophils # 8.0 H (1.3-7.7) k/uL Lymphocytes # 0.6 L (1.0-4.8) k/uL Monocytes # 0.7 (0-1.0) k/uL Eosinophils # 0.2 (0-0.7) k/uL Basophils # 0.0 (0-0.2) k/uL PT 19.5 H (9.0-12.0) sec INR 2.0 H (<1.2) APTT 37.8 H (22.0-30.0) sec Sodium (137-145) mmol/L Potassium (3.5-5.1) mmol/L Chloride (98-107) mmol/L Carbon Dioxide (22-30) mmol/L Anion Gap mmol/L BUN (9-20) mg/dL Creatinine (0.66-1.25) mg/dL Est GFR (CKD-EPI)AfAm (>60 ml/min/1.73 sqM) Est GFR (CKD-EPI)NonAf (>60 ml/min/1.73 sqM) Glucose (74-99) mg/dL Plasma Lactic Acid [place] (0.7-2.0) mmol/L Calcium (8.4-10.2) mg/dL Total Bilirubin (0.2-1.3) mg/dL AST (17-59) U/L ALT (21-72) U/L Alkaline Phosphatase (38-126) U/L Total Protein (6.3-8.2) g/dL Albumin (3.5-5.0) g/dL Urine Color Urine Appearance (Clear) Urine pH (5.0-8.0) Ur Specific [place] (1.001-1.035) Urine Protein (Negative) Urine Glucose (UA) (Negative) Urine Ketones (Negative) Urine Blood (Negative) Urine Nitrite (Negative) Urine Bilirubin (Negative) Urine Urobilinogen (<2.0) mg/dL Ur Leukocyte Esterase (Negative) Urine WBC (0-5) /hpf Urine WBC Clumps (None) /hpf Amorphous Sediment (None) /hpf Urine Bacteria (None) /hpf Hyaline Casts (0-2) /lpf Urine Mucus (None) /hpf 11/09/18 11:22 Normal sinus rhythm with nonspecific ST and T-wave abnormality. Abnormal EKG noted. Ventricular rate of 97 bpm. Intervals 136 most seconds. QRS duration is 82 ms. QT QTC 346/439 ms. - Radiology Data Radiology results: report reviewed Interval development of linear right midlung opacity. Findings may relate atelectasis however early pneumonia may have similar appearance. Serial radial grafts made with further evaluation. Disposition Clinical Impression: UTI (urinary tract infection), Sepsis, Feeding tube blocked Disposition: ADMITTED IP TO THIS HOSP Condition: Stable Is patient prescribed a controlled substance at d/c from ED?: No Referrals: Nonstaff,Physician [Primary Care Provider] - 1-2 days Time of Disposition: 16:00
[2018-11-09 12:39] LABS: ALT 30 U/L (21-72); AST 50 U/L (17-59); Albumin 3.5 g/dL (3.5-5.0); Alkaline Phosphatase 90 U/L (38-126); Anion Gap 9 mmol/L; Blood Urea Nitrogen 20 mg/dL (9-20); Calcium 8.7 mg/dL (8.4-10.2); Carbon Dioxide 23 mmol/L (22-30); Chloride 104 mmol/L (98-107); Glucose 114 mg/dL (74-99); Sodium 136 mmol/L (137-145); Total Bilirubin 0.8 mg/dL (0.2-1.3); Total Protein 7.3 g/dL (6.3-8.2)
[2018-11-09 12:53] LABS: Amorphous Sediment,Urine Few /hpf; Appearance,Urine Cloudy (Clear); Bacteria,Urine Moderate /hpf; Bilirubin,Urine Negative (Negative); Blood,Urine Small (Negative); Color,Urine Yellow; Glucose,Urine (UA) Negative (Negative); Hyaline Casts,Urine 3 /lpf (0-2); Ketones,Urine Negative (Negative); Leukocyte Esterase,Urine Large (Negative); Mucus,Urine Rare /hpf; Nitrite,Urine Positive (Negative); Protein,Urine 1+ (Negative); Urobilinogen,Urine <2.0 mg/dL (<2.0); WBC,Urine >182 /hpf (0-5)
[2018-11-09 13:37] LABS: Basophils % (A) 0 %; Eosinophils # (A) 0.2 k/uL (0-0.7); Eosinophils % (A) 2 %; HCT 44.1 % (39.0-53.0); HGB 14.1 gm/dL (13.0-17.5); Lymphocytes # (A) 0.6 k/uL (1.0-4.8); Lymphocytes % (A) 6 %; MCHC 32.1 g/dL (31.0-37.0); MCV 87.1 fL (80.0-100.0); Mean Platelet Volume 7.4; Monocytes # (A) 0.7 k/uL (0-1.0); Monocytes % (A) 8 %; Neutrophils % (A) 82 %; Platelet Count 220 k/uL (150-450); RBC 5.06 m/uL (4.30-5.90); RDW 14.7 % (11.5-15.5); WBC 9.7 k/uL (3.8-10.6)
[2018-11-09] MEDS: SODIUM CHLORIDE 0.9% 500 ML 500 ML IV SCH ×3 (13:40→17:09)
[2018-11-09 13:50] LABS: Partial Thromboplastin Time 37.8 sec (22.0-30.0); Prothrombin Time 19.5 sec (9.0-12.0)
[2018-11-09] MEDS ORDERED: .ACETAMINOPHEN IV (PEDS) 1,000 MG in EMPTY BAG 1 BAG IVPB STA (14:44)
[2018-11-09] MEDS ORDERED: ACETAMINOPHEN IV (For NPO) 1,000 MG in EMPTY BAG 1 BAG IVPB STA (14:47)
[2018-11-09] MEDS ORDERED: ONDANSETRON 4 MG/2 ML VIAL IVP PRN (16:02)
[2018-11-09] MEDS ORDERED: NALOXONE 0.4 MG/ML 1 ML VIAL IV PRN (16:02)
--- NOTE | 2018-11-09 17:32 | P.HPIM ---
History of Present Illness 58-year-old gentleman came in because of high-grade fever sepsis believed to be secondary to urinary tract infection patient is a chronic Stein catheter with significantly abnormal uterine patient is mostly nonverbal patient does have advanced multiple cirrhosis because of which patient is bedbound with contractors. Patient's will gather was replaced last time by urologist because of problems with his urethral meatus. Urology will be consulted. Patient was started on Zosyn patient has a pseudomonas in the urine last time. Patient is unable to forward much history to me patient chest x-ray did not show any pneumonic process patient is a PEG tube in place PEG tube site area appears to be clean without any infection. PEG tube was dislodged which was repositioned by a ER. Review of Systems Unable to obtain due to his clinical condition Past Medical History Past Medical History: Deep Vein Thrombosis (DVT), GERD/Reflux, Hypertension, Musculoskeletal Disorder, Pneumonia, Renal Disease Additional Past Medical History / Comment(s): MS, cognitive impariment/ non verbal, NPO-peg tube,DVT-arm , IDC ,INCONT OF BOWEL. DYSARTHRIA/ANARTHRIA/ DYSPHAGIA. BEDBOUND, RACHEL LIFT TO W/C, neurogenic bladder,m History of Any Multi-Drug Resistant Organisms: MRSA Date of last positivie culture/infection: 10/21/17 MDRO Source:: URINE Additional Past Surgical History / Comment(s): PEG TUBE, HX OF GASTROSTOMY, PICC LINE Past Anesthesia/Blood Transfusion Reactions: Unable to Obtain Past Psychological History: Depression Smoking Status: Never smoker Past Alcohol Use History: None Reported Past Drug Use History: None Reported - Past Family History Father Family Medical History: Unable to Obtain Additional Family Medical History / Comment(s): patient is nonverbal Mother Family Medical History: Unable to Obtain Additional Family Medical History / Comment(s): patient is nonverbal Medications and Allergies Home Medications Medication Instructions Recorded Confirmed Type Gabapentin 250mg/5ml 250 mg PEG/G-TUBE Q12H 08/07/17 11/09/18 History Metoprolol Tartrate [Lopressor] 25 mg PEG/G-TUBE Q12H 08/07/17 11/09/18 History Amantadine 50mg/5ml 100 mg PEG/G-TUBE Q12H 12/28/17 11/09/18 History Ascorbic Acid [Vitamin C] 250 mg PEG/G-TUBE DAILY 12/28/17 11/09/18 History Cholecalciferol [Vitamin D3] 1,000 unit PEG/G-TUBE DAILY 12/28/17 11/09/18 History Docusate Oral Soln [Colace Oral 40 mg PEG/G-TUBE BID 12/28/17 11/09/18 History Soln] Scopolamine 1.5MG/72Hr Patch 1 patch TRANSDERM Q72H 12/28/17 11/09/18 History [TransDerm Scop] guaiFENesin [guaiFENesin Oral 200 mg PEG/G-TUBE Q6H 12/28/17 11/09/18 History Solution] Acetaminophen 500mg/15ml 160 mg PEG/G-TUBE Q6H PRN 02/15/18 11/09/18 History Baclofen 5 mg PEG/G-TUBE TID 04/07/18 11/09/18 History Nexium 20mg Packet 20 mg PEG/G-TUBE DAILY 04/07/18 11/09/18 History Furosemide [Lasix] 20 mg PEG/G-TUBE DAILY 05/24/18 11/09/18 History carBAMazepine [TEGretol Susp] 200 mg PEG/G-TUBE BID 05/24/18 11/09/18 History Oxybutynin Chloride [Ditropan] 5 mg PEG/G-TUBE TID #90 tab 07/29/18 11/09/18 Rx Cranberry Cap 405mg 405 mg PEG/G-TUBE BID 11/09/18 11/09/18 History Pregabalin [Lyrica] 75 mg PEG/G-TUBE DAILY@0900 11/09/18 11/09/18 History Pregabalin [Lyrica] 150 mg PO HS@2100 11/09/18 11/09/18 History Sulfamethox-Tmp 800-160Mg [Bactrim 1 tab PEG/G-TUBE Q12HR 11/09/18 11/09/18 History DS 800-160 mg] Warfarin [Coumadin] 2.5 mg PEG/G-TUBE DAILY@1700 11/09/18 11/09/18 History Warfarin [Coumadin] 3 mg PEG/G-TUBE DAILY@1700 11/09/18 11/09/18 History Allergies Allergy/AdvReac Type Severity Reaction Status Date / Time meropenem [From Merrem] Allergy Rash/Hives Verified 11/09/18 11:18 Physical Exam Vitals: Vital Signs Temp Pulse Resp BP Pulse Ox 11/09/18 17:00 99.4 F 101 H 18 98/74 95 11/09/18 15:21 101.6 F H 102 H 18 136/86 99 11/09/18 13:25 103 H 20 141/91 97 11/09/18 09:33 100.3 F H 96 24 133/90 96 Intake and Output 11/09/18 11/09/18 11/09/18 06:59 14:59 22:59 Other: Weight 80.467 kg PHYSICAL EXAMINATION: GENERAL: The patient is alert and oriented x3, not in any acute distress. Thin built with contractures HEENT: Pupils are round and equally reacting to light. EOMI. No scleral icterus. No conjunctival pallor. Normocephalic, atraumatic. No pharyngeal erythema. No thyromegaly. CARDIOVASCULAR: S1 and S2 present. No murmurs, rubs, or gallops. PULMONARY: Chest is clear to auscultation, no wheezing or crackles. ABDOMEN: Soft, nontender, nondistended, normoactive bowel sounds. No palpable organomegaly. Right tube in place MUSCULOSKELETAL: No joint swelling or deformity. EXTREMITIES: No cyanosis, clubbing, or pedal edema. NEUROLOGICAL: Gross neurological examination did not reveal any new focal deficits. Chronically bedbound with the muscle atrophy and contractures SKIN: No rashes. Results CBC & Chem 7: 11/09/18 13:25 11/09/18 12:11 Labs: Abnormal Lab Results - Last 24 Hours (Table) 11/09/18 11/09/18 11/09/18 Range/Units 12:01 12:11 13:25 Neutrophils # 8.0 H (1.3-7.7) k/uL Lymphocytes # 0.6 L (1.0-4.8) k/uL PT (9.0-12.0) sec INR (<1.2) APTT (22.0-30.0) sec Sodium 136 L (137-145) mmol/L Glucose 114 H (74-99) mg/dL Urine Protein 1+ H (Negative) Urine Blood Small H (Negative) Ur Leukocyte Esterase Large H (Negative) Urine WBC >182 H (0-5) /hpf Urine WBC Clumps Many H (None) /hpf Amorphous Sediment Few H (None) /hpf Urine Bacteria Moderate H (None) /hpf Hyaline Casts 3 H (0-2) /lpf Urine Mucus Rare H (None) /hpf 11/09/18 Range/Units 13:25 Neutrophils # (1.3-7.7) k/uL Lymphocytes # (1.0-4.8) k/uL PT 19.5 H (9.0-12.0) sec INR 2.0 H (<1.2) APTT 37.8 H (22.0-30.0) sec Sodium (137-145) mmol/L Glucose (74-99) mg/dL Urine Protein (Negative) Urine Blood (Negative) Ur Leukocyte Esterase (Negative) Urine WBC (0-5) /hpf Urine WBC Clumps (None) /hpf Amorphous Sediment (None) /hpf Urine Bacteria (None) /hpf Hyaline Casts (0-2) /lpf Urine Mucus (None) /hpf Microbiology - Last 24 Hours (Table) 11/09/18 12:01 Urine Culture - Preliminary Urine,Voided Assessment and Plan Plan: -Sepsis: Secondary to possible urinary tract infection chronic Stein catheter related, we'll consult urology to place a Stein catheter because of his issues with urethral meatus and difficult Stein placement and patient was started on Zosyn as patient has Pseudomonas in the urine cultures in the past -Dysphagia with a PEG tube in place the site of which doesn't appear to be infected -History of DVT as well as chronic A. fib on Coumadin therapy can Coumadin patient will be resumed on his Coumadin and repeat INR tomorrow -Hypertension -Multiple sclerosis with chronic debility chronic contractures supportive care
[2018-11-09] MEDS: SODIUM CHLORIDE 0.9% 1,000 ML IV SCH (19:15)
[2018-11-09] MEDS ORDERED: CRANBERRY 405 MG PEG/G-TUBE SCH (21:00)
[2018-11-09] MEDS: BACLOFEN 10 MG TAB PEG/G-TUBE SCH (22:07)
[2018-11-09] MEDS: METOPROLOL TARTRATE 25 MG TAB PEG/G-TUBE SCH (22:07)
[2018-11-09] MEDS: DOCUSATE ORAL SOLN 100 MG/10 ML CUP PEG/G-TUBE SCH (22:07)
[2018-11-09] MEDS: PIPERACILLIN-TAZOBACTAM 3.375 GM in SODIUM CHLORIDE 0.9% 100 ML IVPB SCH (22:07)
[2018-11-09] MEDS: guaiFENesin SYRUP 100MG/5ML 200 MG/10 ML CUP PEG/G-TUBE SCH ×2 (22:07→22:17)
[2018-11-09] MEDS: PREGABALIN 75 MG CAP PO SCH (22:07)
[2018-11-09] MEDS: OXYBUTYNIN CHLORIDE 5 MG TAB PEG/G-TUBE SCH (22:08)
[2018-11-09] MEDS: SCOPOLAMINE 1.5MG/72HR PATCH TRANSDERM SCH (22:08)
[2018-11-09] MEDS: WARFARIN 3 MG TAB PEG/G-TUBE SCH (22:08)
[2018-11-09] MEDS: WARFARIN 2.5 MG TAB PEG/G-TUBE SCH (22:08)
[2018-11-09] MEDS: AMANTADINE HCL PEG/G-TUBE SCH (22:17)
[2018-11-09] MEDS: GABAPENTIN PEG/G-TUBE SCH (23:38)
[2018-11-10] MEDS: carBAMazepine 200 MG TAB PEG/G-TUBE SCH ×3 (01:12→22:05)
[2018-11-10] MEDS: ACETAMINOPHEN ORAL SUSP 160 MG/5 ML CUP PEG/G-TUBE PRN (01:13)
[2018-11-10] MEDS: SODIUM CHLORIDE 0.9% 1,000 ML IV SCH ×2 (03:58→10:55)
[2018-11-10] MEDS: guaiFENesin SYRUP 100MG/5ML 200 MG/10 ML CUP PEG/G-TUBE SCH ×3 (03:58→16:21)
[2018-11-10] MEDS: PIPERACILLIN-TAZOBACTAM 3.375 GM in SODIUM CHLORIDE 0.9% 100 ML IVPB SCH ×3 (03:58→22:04)
[2018-11-10] MEDS: DOCUSATE ORAL SOLN 100 MG/10 ML CUP PEG/G-TUBE SCH ×2 (08:12→22:06)
[2018-11-10] MEDS: METOPROLOL TARTRATE 25 MG TAB PEG/G-TUBE SCH ×2 (08:13→22:05)
[2018-11-10] MEDS: FUROSEMIDE 20 MG TAB PEG/G-TUBE SCH (08:13)
[2018-11-10] MEDS: CHOLECALCIFEROL 1,000 UNIT TAB PEG/G-TUBE SCH (08:13)
[2018-11-10] MEDS: OXYBUTYNIN CHLORIDE 5 MG TAB PEG/G-TUBE SCH ×3 (08:13→22:05)
[2018-11-10] MEDS: ASCORBIC ACID 500 MG TAB PEG/G-TUBE SCH (08:13)
[2018-11-10] MEDS: AMANTADINE HCL PEG/G-TUBE SCH ×2 (08:13→22:05)
[2018-11-10] MEDS: BACLOFEN 10 MG TAB PEG/G-TUBE SCH ×3 (08:14→22:04)
[2018-11-10] MEDS: PREGABALIN 75 MG CAP PEG/G-TUBE SCH (08:14)
[2018-11-10] MEDS: PANTOPRAZOLE 40 MG/10 ML VIAL IV SCH (08:14)
[2018-11-10] MEDS: GABAPENTIN PEG/G-TUBE SCH ×2 (08:15→22:40)
--- NOTE | 2018-11-10 08:27 | CONS ---
CONSULTATION DATE OF SERVICE: 11/09/2018 REASON FOR CONSULTATION: Urinary tract infection. HISTORY OF PRESENT ILLNESS: Patient is a 58-year-old male with a past medical history significant for MS. Patient who does have a bed-bound state in this patient who does have chronic indwelling Stein catheter and history of recurrent UTI. The patient who is a [facility] resident has been sent to the ER at [facility] with concern for possible nonfunctioning of the PEG tube and concern for possible sepsis. The patient has been evaluated by the ER physician. The patient did have a chest x-ray which showed interval development of mid lung opacity. The patient who did have a fever of 101.6 degrees Fahrenheit on arrival to the ER. The patient has been tachycardic. His white count was mildly elevated, currently at 9.7. The patient UA has been positive with large leukocyte esterase and more than 1 WBC. The patient has been admitted to the hospital where the patient has been started on Zosyn and Infectious Disease was consulted for further recommendation of antibiotic therapy. Most of the information has been obtained from thorough review of the chart and talking to the nursing staff as the patient herself is unable to provide any history. REVIEW OF SYSTEMS: Could not be reliably obtained. The positive points have been mentioned in HPI. 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 PAST SURGICAL HISTORY: PEG tube placement, subsequent removal, did have debridement of his wound. SOCIAL HISTORY: He has been residing at [facility]. No history of smoking, drinking or drug use. FAMILY HISTORY: No pertinent findings noticed. ALLERGIES: TO MEROPENEM. Though the patient tolerated penicillin without any problem. MEDICATION: Currently include the patient is on Coumadin, scopolamine patch, Lyrica, Zosyn, Protonix, Ditropan, Zofran, Narcan, Lopressor, Robitussin, Lasix, Colace, Tegretol, Baclofen, amantadine and Tylenol. PHYSICAL EXAMINATION: Blood pressure is 132/69, pulse of 52, temperature 97.4, T-max 101.6. He is 98% on 2 L nasal cannula. General description is a middle-aged male lying in bed in no distress. No tachypnea or accessory muscles of respiration use. HEENT: Shows no pallor or scleral icterus. Oral mucosa membranes are dry. No pharyngeal erythema or thrush. Neck trachea central. No thyromegaly. Lungs unlabored breathing with decreased breath sounds in the base. No wheeze or crackle. Heart S1, S2. Regular rate and rhythm. ABDOMEN: Soft, no tenderness. No guarding. No rigidity. Extremities: No edema of the feet. Skin examination: No rash or mass palpable. Neurological: Patient is awake, alert, however, nonverbal. Orientation could not be determined. No agitation was noticed. LABS: Hemoglobin is 14.1, white count 9.7 with a BUN of 20, creatinine 0.7. UA has been positive. Chest x-ray report as mentioned above. DIAGNOSTIC IMPRESSION AND PLAN: 1. Patient admitted to the hospital with sepsis in this patient who did have fever of 101 degrees Fahrenheit. The patient was tachycardic. Source is likely combination of catheter associated urinary tract infection, also with an element of pneumonia as seen on the chest x-ray. Unfortunately, the patient is nonverbal. That will limit his history. 2. The patient did have history of recurrent pneumonia as well as catheter associated urinary tract infection. PLAN: 1. Change his Stein catheter pending culture from new Stein. 2. Try to obtain sputum for Gram stain culture and sensitivity. 3. Zosyn 3.375 g q.8 hours provide adequate coverage for both UTI as well as pneumonia. 4. We will follow up on clinical condition and culture to further adjust medication if needed. Thank you for this consultation. Will follow this patient along with you. MMODL / IJN: [id number] /
[2018-11-10 08:38] LABS: Anion Gap 9 mmol/L; Blood Urea Nitrogen 18 mg/dL (9-20); Calcium 8.5 mg/dL (8.4-10.2); Carbon Dioxide 23 mmol/L (22-30); Chloride 112 mmol/L (98-107); Glucose 151 mg/dL (74-99); Potassium 4.8 mmol/L (3.5-5.1); Sodium 144 mmol/L (137-145)
[2018-11-10 08:47] LABS: HCT 37.5 % (39.0-53.0); HGB 12.1 gm/dL (13.0-17.5); MCH 27.9 pg (25.0-35.0); MCHC 32.2 g/dL (31.0-37.0); MCV 86.8 fL (80.0-100.0); Mean Platelet Volume 8.8; Platelet Count 245 k/uL (150-450); RBC 4.33 m/uL (4.30-5.90); RDW 14.6 % (11.5-15.5); WBC 9.1 k/uL (3.8-10.6)
[2018-11-10] MEDS ORDERED: NEXIUM 20 MG PEG/G-TUBE SCH (09:00)
--- NOTE | 2018-11-10 11:55 | P.GSCN ---
History of Present Illness Consult date: 11/10/18 Reason for Consult: Febrile urinary tract infection with sepsis and neurogenic bladder with chronic indwelling catheter History of present illness: The patient is a 58-year-old male admitted through the emergency room yesterday for evaluation of possible sepsis related to a urinary tract infection. He has a history of multiple sclerosis which has been present nearly 20 years which has been managed with an indwelling catheter for proximally 2 years. A catheter was placed due to incomplete bladder emptying. The patient is cared for at the [facility]. I saw the patient while he was hospitalized in 07/2018 due to leakage around the catheter which was felt to be related to bladder spasms. There has been no difficulty with exchange of his urethral catheter and it was my feeling at that time that a urethral catheter would be preferable to a suprapubic catheter as it drains the bladder more efficiently. The patient apparently developed a low-grade fever yesterday and there was concern that it could be related to a urinary tract infection. He was evaluated in the emergency room and noted to have a temperature of 100.4. His white blood count was 7200. Lactic acid was 1.4. BUN/creatinine were 20/0.87. Urinalysis obtained through his catheter was positive for nitrite and showed pyuria. The patient has been started on antibiotics. Since admission he has become afebrile. His white blood count is 9100 this morning. BUN/creatinine are 18/0.75. The patient is able to communicate only minimal due to his advanced multiple sclerosis. He believes that his urethral catheter was changed recently and there was no difficulty at that time. He has no history of urolithiasis. He did have a Pseudomonas urinary tract infection in 06/2018 but a urine culture in 07/18 showed no growth. Review of Systems All systems: negative (that noted in the history of present illness) Past Medical History Past Medical History: Deep Vein Thrombosis (DVT), GERD/Reflux, Hypertension, Musculoskeletal Disorder, Pneumonia, Renal Disease Additional Past Medical History / Comment(s): MS, cognitive impariment/ non verbal, NPO-peg tube,DVT-arm , IDC ,INCONT OF BOWEL. DYSARTHRIA/ANARTHRIA/ DYSPHAGIA. BEDBOUND, RACHEL LIFT TO W/C, neurogenic bladder,m History of Any Multi-Drug Resistant Organisms: MRSA Year Discovered:: 10/21/17 MDRO Source:: URINE Additional Past Surgical History / Comment(s): PEG TUBE, HX OF GASTROSTOMY, PICC LINE Past Anesthesia/Blood Transfusion Reactions: Unable to Obtain Past Psychological History: Depression Smoking Status: Never smoker Past Alcohol Use History: None Reported Past Drug Use History: None Reported - Past Family History Father Family Medical History: Unable to Obtain Additional Family Medical History / Comment(s): patient is nonverbal Mother Family Medical History: Unable to Obtain Additional Family Medical History / Comment(s): patient is nonverbal Medications and Allergies Home Medications Medication Instructions Recorded Confirmed Type Gabapentin 250mg/5ml 250 mg PEG/G-TUBE Q12H 08/07/17 11/09/18 History Metoprolol Tartrate [Lopressor] 25 mg PEG/G-TUBE Q12H 08/07/17 11/09/18 History Amantadine 50mg/5ml 100 mg PEG/G-TUBE Q12H 12/28/17 11/09/18 History Ascorbic Acid [Vitamin C] 250 mg PEG/G-TUBE DAILY 12/28/17 11/09/18 History Cholecalciferol [Vitamin D3] 1,000 unit PEG/G-TUBE DAILY 12/28/17 11/09/18 History Docusate Oral Soln [Colace Oral 40 mg PEG/G-TUBE BID 12/28/17 11/09/18 History Soln] Scopolamine 1.5MG/72Hr Patch 1 patch TRANSDERM Q72H 12/28/17 11/09/18 History [TransDerm Scop] guaiFENesin [guaiFENesin Oral 200 mg PEG/G-TUBE Q6H 12/28/17 11/09/18 History Solution] Acetaminophen 500mg/15ml 160 mg PEG/G-TUBE Q6H PRN 02/15/18 11/09/18 History Baclofen 5 mg PEG/G-TUBE TID 04/07/18 11/09/18 History Nexium 20mg Packet 20 mg PEG/G-TUBE DAILY 04/07/18 11/09/18 History Furosemide [Lasix] 20 mg PEG/G-TUBE DAILY 05/24/18 11/09/18 History carBAMazepine [TEGretol Susp] 200 mg PEG/G-TUBE BID 05/24/18 11/09/18 History Oxybutynin Chloride [Ditropan] 5 mg PEG/G-TUBE TID #90 tab 07/29/18 11/09/18 Rx Cranberry Cap 405mg 405 mg PEG/G-TUBE BID 11/09/18 11/09/18 History Pregabalin [Lyrica] 75 mg PEG/G-TUBE DAILY@0900 11/09/18 11/09/18 History Pregabalin [Lyrica] 150 mg PO HS@2100 11/09/18 11/09/18 History Sulfamethox-Tmp 800-160Mg [Bactrim 1 tab PEG/G-TUBE Q12HR 11/09/18 11/09/18 History DS 800-160 mg] Warfarin [Coumadin] 2.5 mg PEG/G-TUBE DAILY@17011/09/18 11/09/18 History Warfarin [Coumadin] 3 mg PEG/G-TUBE DAILY@169911/09/18 11/09/18 History Allergies Allergy/AdvReac Type Severity Reaction Status Date / Time meropenem [From Merrem] Allergy Rash/Hives Verified 11/09/18 11:18 Surgical - Exam Vital Signs Temp Pulse Resp BP Pulse Ox 100.3 F H 96 24 133/90 96 11/09/18 09:33 11/09/18 09:33 11/09/18 09:33 11/09/18 09:33 11/09/18 09:33 - General chronically ill - ENT no hearing loss - Respiratory normal respiratory effort - Abdomen Abdomen: soft, non tender, no organomegaly - Genitourinary other (The penis is circumcised. A 16-[place] catheters in place. There is erosion of the urethral meatus ventrally and the meatus is located in the subcoronal region. There is no significant discharge around the catheter. Both testicles are descended. No testicular or epididymal induration.) Results - Labs 11/10/18 07:31 11/10/18 07:31 Abnormal Lab Results - Last 24 Hours (Table) 11/09/18 11/09/18 11/09/18 Range/Units 12:01 12:11 13:25 Hgb (13.0-17.5) gm/dL Hct (39.0-53.0) % Neutrophils # 8.0 H (1.3-7.7) k/uL Lymphocytes # 0.6 L (1.0-4.8) k/uL PT (9.0-12.0) sec INR (<1.2) APTT (22.0-30.0) sec Sodium 136 L (137-145) mmol/L Chloride (98-107) mmol/L Glucose 114 H (74-99) mg/dL Urine Protein 1+ H (Negative) Urine Blood Small H (Negative) Ur Leukocyte Esterase Large H (Negative) Urine WBC >182 H (0-5) /hpf Urine WBC Clumps Many H (None) /hpf Amorphous Sediment Few H (None) /hpf Urine Bacteria Moderate H (None) /hpf Hyaline Casts 3 H (0-2) /lpf Urine Mucus Rare H (None) /hpf 11/09/18 11/10/18 11/10/18 Range/Units 13:25 07:31 07:31 Hgb 12.1 L (13.0-17.5) gm/dL Hct 37.5 L (39.0-53.0) % Neutrophils # (1.3-7.7) k/uL Lymphocytes # (1.0-4.8) k/uL PT 19.5 H (9.0-12.0) sec INR 2.0 H (<1.2) APTT 37.8 H (22.0-30.0) sec Sodium (137-145) mmol/L Chloride 112 H (98-107) mmol/L Glucose 151 H (74-99) mg/dL Urine Protein (Negative) Urine Blood (Negative) Ur Leukocyte Esterase (Negative) Urine WBC (0-5) /hpf Urine WBC Clumps (None) /hpf Amorphous Sediment (None) /hpf Urine Bacteria (None) /hpf Hyaline Casts (0-2) /lpf Urine Mucus (None) /hpf Microbiology - Last 24 Hours (Table) 11/09/18 12:01 Urine Culture - Preliminary Urine,Voided Diabetes panel 11/09/18 11/10/18 Range/Units 12:11 07:31 Sodium 136 L 144 (137-145) mmol/L Potassium 5.0 4.8 (3.5-5.1) mmol/L Chloride 104 112 H (98-107) mmol/L Carbon Dioxide 23 23 (22-30) mmol/L BUN 20 18 (9-20) mg/dL Creatinine 0.87 0.75 (0.66-1.25) mg/dL Glucose 114 H 151 H (74-99) mg/dL Calcium 8.7 8.5 (8.4-10.2) mg/dL AST 50 (17-59) U/L ALT 30 (21-72) U/L Alkaline Phosphatase 90 (38-126) U/L Total Protein 7.3 (6.3-8.2) g/dL Albumin 3.5 (3.5-5.0) g/dL Calcium panel 11/09/18 11/10/18 Range/Units 12:11 07:31 Calcium 8.7 8.5 (8.4-10.2) mg/dL Albumin 3.5 (3.5-5.0) g/dL Pituitary panel 11/09/18 11/10/18 Range/Units 12:11 07:31 Sodium 136 L 144 (137-145) mmol/L Potassium 5.0 4.8 (3.5-5.1) mmol/L Chloride 104 112 H (98-107) mmol/L Carbon Dioxide 23 23 (22-30) mmol/L BUN 20 18 (9-20) mg/dL Creatinine 0.87 0.75 (0.66-1.25) mg/dL Glucose 114 H 151 H (74-99) mg/dL Calcium 8.7 8.5 (8.4-10.2) mg/dL Adrenal panel 11/09/18 11/10/18 Range/Units 12:11 07:31 Sodium 136 L 144 (137-145) mmol/L Potassium 5.0 4.8 (3.5-5.1) mmol/L Chloride 104 112 H (98-107) mmol/L Carbon Dioxide 23 23 (22-30) mmol/L BUN 20 18 (9-20) mg/dL Creatinine 0.87 0.75 (0.66-1.25) mg/dL Glucose 114 H 151 H (74-99) mg/dL Calcium 8.7 8.5 (8.4-10.2) mg/dL Total Bilirubin 0.8 (0.2-1.3) mg/dL AST 50 (17-59) U/L ALT 30 (21-72) U/L Alkaline Phosphatase 90 (38-126) U/L Total Protein 7.3 (6.3-8.2) g/dL Albumin 3.5 (3.5-5.0) g/dL Assessment and Plan (1) UTI (urinary tract infection) Narrative/Plan: The patient most likely has a catheter associated urinary tract infection. He does not appear to be septic. I changed the patient's catheter at the bedside without difficulty. I still believe that a urethral catheter would be preferable to a suprapubic catheter as long as the urethral catheter can be changed easily. It is important that the catheter did not have traction on it as this will lead to further erosion at the ventral urethral meatus. Current Visit: Yes Status: Acute Code(s): N39.0 - URINARY TRACT INFECTION, SITE NOT SPECIFIED SNOMED Code(s): 76422526
--- NOTE | 2018-11-10 13:28 | P.PN ---
Subjective 58-year-old gentleman came in because of high-grade fever sepsis believed to be secondary to urinary tract infection patient is a chronic Stein catheter with significantly abnormal uterine patient is mostly nonverbal patient does have advanced multiple cirrhosis because of which patient is bedbound with contractors. Patient's will gather was replaced last time by urologist because of problems with his urethral meatus. Urology will be consulted. Patient was started on Zosyn patient has a pseudomonas in the urine last time. Patient is unable to forward much history to me patient chest x-ray did not show any pneumonic process patient is a PEG tube in place PEG tube site area appears to be clean without any infection. PEG tube was dislodged which was repositioned by a ER. 11/10/2018 Patient's Stein catheter was replaced by urology today. Patient may have minimal improvement today as patient is mostly nonverbal I can't get much of the history from the patient Active Medications Acetaminophen (Tylenol Oral Susp) 160 mg PEG/G-TUBE Q6H PRN PRN Reason: Pain Last Admin: 11/10/18 01:13 Dose: 160 mg Amantadine HCl (Symmetrel) 100 mg PEG/G-TUBE Q12HR [facility] Last Admin: 11/10/18 08:13 Dose: 100 mg Ascorbic Acid (Vitamin C) 250 mg PEG/G-TUBE DAILY [facility] Last Admin: 11/10/18 08:13 Dose: 250 mg Baclofen (Lioresal) 5 mg PEG/G-TUBE TID [facility] Last Admin: 11/10/18 08:14 Dose: 5 mg Carbamazepine (Tegretol) 200 mg PEG/G-TUBE BID [facility] Last Admin: 11/10/18 08:13 Dose: 200 mg Cholecalciferol (Vitamin D3) 1,000 unit PEG/G-TUBE DAILY [facility] Last Admin: 11/10/18 08:13 Dose: 1,000 unit Docusate Sodium (Colace Oral Soln) 40 mg PEG/G-TUBE BID [facility] Last Admin: 11/10/18 08:12 Dose: 40 mg Furosemide (Lasix) 20 mg PEG/G-TUBE DAILY [facility] Last Admin: 11/10/18 08:13 Dose: 20 mg Guaifenesin (Robitussin) 200 mg PEG/G-TUBE Q6H [facility] Last Admin: 11/10/18 10:55 Dose: 200 mg Piperacillin Sod/Tazobactam (Sod 3.375 gm/ Sodium Chloride) 100 mls @ 25 mls/ hr IVPB Q8H [facility] Last Admin: 11/10/18 11:44 Dose: 25 mls/hr Metoprolol Tartrate (Lopressor) 25 mg PEG/G-TUBE Q12HR [facility] Last Admin: 11/10/18 08:13 Dose: 25 mg Naloxone HCl (Narcan) 0.2 mg IV Q2M PRN PRN Reason: Opioid Reversal Non-Formulary Medication (Gabapentin 250mg/5ml) 250 mg PEG/G-TUBE Q12HR [facility] Last Admin: 11/10/18 08:15 Dose: Not Given Ondansetron HCl (Zofran) 4 mg IVP Q8HR PRN PRN Reason: Nausea And Vomiting Oxybutynin Chloride (Ditropan) 5 mg PEG/G-TUBE TID [facility] Last Admin: 11/10/18 08:13 Dose: 5 mg Pantoprazole Sodium (Protonix) 40 mg IV DAILY [facility] Last Admin: 11/10/18 08:14 Dose: 40 mg Pregabalin (Lyrica) 75 mg PEG/G-TUBE DAILY@0900 [facility] Last Admin: 11/10/18 08:14 Dose: 75 mg Pregabalin (Lyrica) 150 mg PO HS@2100 [facility] Last Admin: 11/09/18 22:07 Dose: 150 mg Scopolamine (Transderm-Scop 1.5mg/72hr Patch) 1 patch TRANSDERM Q72H [facility] Last Admin: 11/09/18 22:08 Dose: 1 patch Warfarin Sodium (Coumadin) 2.5 mg PEG/G-TUBE DAILY@1700 [facility] Last Admin: 11/09/18 22:08 Dose: 2.5 mg Warfarin Sodium (Coumadin) 3 mg PEG/G-TUBE DAILY@1700 [facility] Last Admin: 11/09/18 22:08 Dose: 3 mg Objective - Vital Signs Vital signs: Vital Signs Temp 100.4 F H 11/10/18 05:00 Pulse 103 H 11/10/18 05:00 Resp 18 11/10/18 05:00 BP 164/84 11/10/18 05:00 Pulse Ox 100 11/10/18 05:00 Intake & Output 11/09/18 11/10/18 11/10/18 18:59 06:59 18:59 Intake Total 400 1510 Output Total 2300 650 Balance -1900 860 Weight 80.467 kg Intake: Intake, IV Titration 400 1000 Amount Piperacillin-Tazobactam 3 200 200 .375 gm In Sodium Chloride 0.9% 100 ml @ 25 mls/hr IVPB Q8H [facility] Rx#: [id number] Sodium Chloride 0.9% 1, 200 800 000 ml @ 100 mls/hr IV . Q10H [facility] Rx#:[id number] Tube Feeding 450 Other 60 Output: Urine 2300 650 Other: Voiding Method Indwelling Catheter Indwelling Catheter # Voids 1 - Exam PHYSICAL EXAMINATION: GENERAL: The patient is alert and oriented x3, not in any acute distress. Thin built with contractures HEENT: Pupils are round and equally reacting to light. EOMI. No scleral icterus. No conjunctival pallor. Normocephalic, atraumatic. No pharyngeal erythema. No thyromegaly. CARDIOVASCULAR: S1 and S2 present. No murmurs, rubs, or gallops. PULMONARY: Chest is clear to auscultation, no wheezing or crackles. ABDOMEN: Soft, nontender, nondistended, normoactive bowel sounds. No palpable organomegaly. Right tube in place MUSCULOSKELETAL: No joint swelling or deformity. EXTREMITIES: No cyanosis, clubbing, or pedal edema. NEUROLOGICAL: Gross neurological examination did not reveal any new focal deficits. Chronically bedbound with the muscle atrophy and contractures SKIN: Healed decubitus ulcers - Labs CBC & Chem 7: 11/10/18 07:31 11/10/18 07:31 Labs: Abnormal Lab Results - Last 24 Hours (Table) 11/09/18 11/09/18 11/10/18 Range/Units 13:25 13:25 07:31 Hgb 12.1 L (13.0-17.5) gm/dL Hct 37.5 L (39.0-53.0) % Neutrophils # 8.0 H (1.3-7.7) k/uL Lymphocytes # 0.6 L (1.0-4.8) k/uL PT 19.5 H (9.0-12.0) sec INR 2.0 H (<1.2) APTT 37.8 H (22.0-30.0) sec Chloride (98-107) mmol/L Glucose (74-99) mg/dL 11/10/18 Range/Units 07:31 Hgb (13.0-17.5) gm/dL Hct (39.0-53.0) % Neutrophils # (1.3-7.7) k/uL Lymphocytes # (1.0-4.8) k/uL PT (9.0-12.0) sec INR (<1.2) APTT (22.0-30.0) sec Chloride 112 H (98-107) mmol/L Glucose 151 H (74-99) mg/dL Microbiology - Last 24 Hours (Table) 11/09/18 12:01 Urine Culture - Preliminary Urine,Voided Gram Neg Bacilli Assessment and Plan Plan: -Sepsis: Secondary to possible urinary tract infection chronic Stein catheter related, urology replaced Stein catheter because of his issues with urethral meatus and difficult Stein placement and patient is on Zosyn as patient has Pseudomonas in the past urine cultures, urine cultures are pending -Dysphagia with a PEG tube in place the site of which doesn't appear to be infected -History of DVT as well as chronic A. fib on Coumadin therapy can Coumadin patient will be resumed on his Coumadin and repeat INR tomorrow -Hypertension -Multiple sclerosis with chronic debility chronic contractures supportive care
[2018-11-10] MEDS: WARFARIN 3 MG TAB PEG/G-TUBE SCH (16:21)
[2018-11-10] MEDS: WARFARIN 2.5 MG TAB PEG/G-TUBE SCH (16:22)
[2018-11-10] MEDS: PREGABALIN 75 MG CAP PO SCH (22:03)
--- NOTE | 2018-11-10 23:45 | PN ---
PROGRESS NOTE DATE OF SERVICE: 11/10/2018. REASON FOR FOLLOWUP: Sepsis, possible catheter-associated drug infection and pneumonia. INTERVAL HISTORY: The patient is still running low-grade fever, however, the patient continues to be hemodynamically stable, breathing comfortably. No distress is noted. No nausea, vomiting or diarrhea noted by nursing staff. Stein catheter has been changed. PHYSICAL EXAMINATION: Blood pressure 130/68 with a pulse of 90, temperature 100.9. He is 97% on room air. GENERAL DESCRIPTION: A middle-aged male lying in bed in no distress. RESPIRATORY SYSTEM: Unlabored breathing with decreased breath sounds at the bases. No wheeze. HEART: S1, S2. Regular rate and rhythm. ABDOMEN: Soft. LABS: Hemoglobin is 12.1, white count 9.1 with a BUN of 18, creatinine 0.75. Urine showing gram-negative. Blood cultures have been negative so far. DIAGNOSTIC IMPRESSION AND PLAN: Patient admitted to the hospital with sepsis. As likely this is a resistant infection, Stein has already been changed. Possibly component of pneumonia. He isn't running a low-grade fever. We will followup on the cultures. Keep the patient on Zosyn at this point. Continue supportive care. Repeat chest x-ray tomorrow. MMODL / IJN: [id number] /
[2018-11-11] MEDS: guaiFENesin SYRUP 100MG/5ML 200 MG/10 ML CUP PEG/G-TUBE SCH ×5 (00:27→23:45)
[2018-11-11] MEDS: ACETAMINOPHEN ORAL SUSP 160 MG/5 ML CUP PEG/G-TUBE PRN (01:05)
[2018-11-11] MEDS: PIPERACILLIN-TAZOBACTAM 3.375 GM in SODIUM CHLORIDE 0.9% 100 ML IVPB SCH (04:43)
[2018-11-11 07:48] LABS: INR 2.7 (<1.2); Prothrombin Time 25.7 sec (9.0-12.0)
[2018-11-11 08:03] LABS: Anion Gap 7 mmol/L; Blood Urea Nitrogen 17 mg/dL (9-20); Carbon Dioxide 23 mmol/L (22-30); Chloride 110 mmol/L (98-107); Glucose 130 mg/dL (74-99); Potassium 3.6 mmol/L (3.5-5.1); Sodium 140 mmol/L (137-145)
[2018-11-11] MEDS: AMANTADINE HCL PEG/G-TUBE SCH ×2 (08:16→23:46)
[2018-11-11] MEDS: DOCUSATE ORAL SOLN 100 MG/10 ML CUP PEG/G-TUBE SCH ×2 (08:20→23:46)
[2018-11-11] MEDS: PANTOPRAZOLE 40 MG/10 ML VIAL IV SCH (08:22)
[2018-11-11] MEDS: METOPROLOL TARTRATE 25 MG TAB PEG/G-TUBE SCH ×2 (08:24→23:45)
[2018-11-11] MEDS: CHOLECALCIFEROL 1,000 UNIT TAB PEG/G-TUBE SCH (08:24)
[2018-11-11] MEDS: OXYBUTYNIN CHLORIDE 5 MG TAB PEG/G-TUBE SCH ×3 (08:24→23:46)
[2018-11-11] MEDS: FUROSEMIDE 20 MG TAB PEG/G-TUBE SCH (08:25)
[2018-11-11] MEDS: BACLOFEN 10 MG TAB PEG/G-TUBE SCH ×3 (08:25→23:45)
[2018-11-11] MEDS: PREGABALIN 75 MG CAP PEG/G-TUBE SCH (08:25)
[2018-11-11] MEDS: ASCORBIC ACID 500 MG TAB PEG/G-TUBE SCH (08:26)
[2018-11-11] MEDS: carBAMazepine 200 MG TAB PEG/G-TUBE SCH ×2 (08:26→23:46)
[2018-11-11] MEDS: GABAPENTIN PEG/G-TUBE SCH ×2 (08:27→23:47)
[2018-11-11] MEDS ORDERED: ERTAPENEM 1 GM in SODIUM CHLORIDE 0.9% 50 ML IVPB STA (10:39)
[2018-11-11 11:03] VITALS: BMI 23.1
--- NOTE | 2018-11-11 14:39 | XR ---
EXAMINATION TYPE: XR chest 1V portable DATE OF EXAM: 11/11/2018 COMPARISON: 11/09/2018 INDICATION: Follow-up previous abnormal chest, fever TECHNIQUE: Single frontal view of the chest is obtained. FINDINGS: The heart size is normal. The pulmonary vasculature is normal. Mild streak opacities in the right midlung. This is improved from comparison. IMPRESSION: 1. Improving streak atelectasis right midlung
[2018-11-11] MEDS: WARFARIN 3 MG TAB PEG/G-TUBE SCH (17:28)
[2018-11-11] MEDS: WARFARIN 2.5 MG TAB PEG/G-TUBE SCH (17:28)
[2018-11-11] MEDS: PREGABALIN 75 MG CAP PO SCH (23:44)
[2018-11-12] MEDS: guaiFENesin SYRUP 100MG/5ML 200 MG/10 ML CUP PEG/G-TUBE SCH ×4 (04:49→22:17)
--- NOTE | 2018-11-12 06:05 | PN ---
PROGRESS NOTE DATE OF SERVICE: 11/11/2018 REASON FOR FOLLOWUP: ESBL E coli urinary tract infection and possible pneumonia. INTERVAL HISTORY: The patient is currently afebrile. He has been breathing comfortably. Does not seem to be in any distress. No nausea, no vomiting, or any diarrhea reported. PHYSICAL EXAMINATION: On examination, blood pressure is 122/75 with a pulse of 69, temperature 98.3. He is 99% on room air. General description is a middle-aged male lying in bed in no distress. RESPIRATORY SYSTEM: Unlabored breathing with decreased breath sounds in the bases, no wheeze. HEART: S1, S2. Regular rate and rhythm. ABDOMEN: Soft, no tenderness. LABS: Hemoglobin 12.1, white count 9.1 with a BUN of 17, creatinine 0.87. Urine showing a ESBL E coli. DIAGNOSTIC IMPRESSION AND PLAN: Patient admitted to the hospital with fever, source is likely combination of urinary tract infection plus-minus pneumonia. X-ray did show overall improvement. Antibiotic has been transitioned to Invanz 1 gram daily, which the patient has tolerated even though he has history of MEROPENEM allergy with rash, which was questionable. The patient will get a Midline tomorrow to continue with IV Invanz for about a week to finish a course of therapy. Plan of care was discussed with the medical team. Continue with supportive care. MMHARPALL / ARMANDON: [id number] /
[2018-11-12] MEDS: PANTOPRAZOLE 40 MG/10 ML VIAL IV SCH (09:41)
[2018-11-12] MEDS: AMANTADINE HCL PEG/G-TUBE SCH (09:41)
[2018-11-12] MEDS: SCOPOLAMINE 1.5MG/72HR PATCH TRANSDERM SCH (09:41)
[2018-11-12] MEDS: ASCORBIC ACID 500 MG TAB PEG/G-TUBE SCH (09:42)
[2018-11-12] MEDS: CHOLECALCIFEROL 1,000 UNIT TAB PEG/G-TUBE SCH (09:42)
[2018-11-12] MEDS: METOPROLOL TARTRATE 25 MG TAB PEG/G-TUBE SCH ×2 (09:42→22:15)
[2018-11-12] MEDS: BACLOFEN 10 MG TAB PEG/G-TUBE SCH ×3 (09:42→22:16)
[2018-11-12] MEDS: carBAMazepine 200 MG TAB PEG/G-TUBE SCH ×2 (09:42→22:15)
[2018-11-12] MEDS: OXYBUTYNIN CHLORIDE 5 MG TAB PEG/G-TUBE SCH ×3 (09:42→22:17)
[2018-11-12] MEDS: PREGABALIN 75 MG CAP PEG/G-TUBE SCH (09:43)
[2018-11-12] MEDS: FUROSEMIDE 20 MG TAB PEG/G-TUBE SCH (09:43)
[2018-11-12] MEDS: GABAPENTIN PEG/G-TUBE SCH ×2 (09:43→22:26)
[2018-11-12] MEDS: DOCUSATE ORAL SOLN 100 MG/10 ML CUP PEG/G-TUBE SCH ×2 (09:44→22:17)
[2018-11-12] MEDS: ERTAPENEM 1 GM in SODIUM CHLORIDE 0.9% 50 ML IVPB SCH (09:44)
[2018-11-12 09:55] LABS: Basophils % (A) 0 %; Eosinophils # (A) 0.3 k/uL (0-0.7); Eosinophils % (A) 5 %; HCT 35.2 % (39.0-53.0); HGB 11.4 gm/dL (13.0-17.5); Lymphocytes # (A) 0.9 k/uL (1.0-4.8); Lymphocytes % (A) 17 %; MCH 28.4 pg (25.0-35.0); MCHC 32.3 g/dL (31.0-37.0); MCV 88.1 fL (80.0-100.0); Monocytes # (A) 0.6 k/uL (0-1.0); Monocytes % (A) 11 %; Neutrophils # (A) 3.3 k/uL (1.3-7.7); Neutrophils % (A) 61 %; Platelet Count 253 k/uL (150-450); RDW 14.6 % (11.5-15.5); WBC 5.4 k/uL (3.8-10.6)
[2018-11-12 10:04] LABS: INR 3.3 (<1.2); Prothrombin Time 31.9 sec (9.0-12.0)
[2018-11-12 10:17] LABS: Anion Gap 6 mmol/L; Blood Urea Nitrogen 15 mg/dL (9-20); Calcium 8.2 mg/dL (8.4-10.2); Carbon Dioxide 26 mmol/L (22-30); Chloride 108 mmol/L (98-107); Glucose 126 mg/dL (74-99); Potassium 3.7 mmol/L (3.5-5.1); Sodium 140 mmol/L (137-145)
--- NOTE | 2018-11-12 14:48 | PN ---
PROGRESS NOTE DATE OF SERVICE: 11/12/2018 REASON FOR FOLLOW UP: ESBL E. coli urinary tract infection, possible pneumonia. INTERVAL HISTORY: The patient is currently afebrile. He has been breathing comfortably. is stable. No pain, no nausea, vomiting or any diarrhea seen by the nursing staff. PHYSICAL EXAMINATION: Blood pressure 125/80 with a pulse of 70, temperature 98.4. He is 98% on 4 L. General description is a middle-aged male, lying in bed in no distress. RESPIRATORY SYSTEM: Unlabored breathing with wheeze. HEART: S1, S2, regular rate and rhythm. ABDOMEN: Soft, no tenderness. LABS: White count of 5.4, BUN of 13, creatinine 0.71. DIAGNOSTIC IMPRESSION AND PLAN: Patient with ESBL E. coli urinary tract infection. . Patient at this to continue with for another week to finish course of therapy. Continue supportive care. MMODL / IJN: [id number] /
--- NOTE | 2018-11-12 15:12 | P.DS ---
Providers Date of admission: 11/09/18 15:39 Expected date of discharge: 11/12/18 Attending physician: MD Dr. Cherry Becerra Consults: 11/09/18 16:02 Consult Physician Stat Consulting Provider: Kevin Miller Consult Reason/Comments: Aggarwal placement, Chronic UTI Do you want consulting provider notified?: Yes 11/09/18 17:11 Consult Physician Routine Consulting Provider: Sonal Farah Consult Reason/Comments: UTI Do you want consulting provider notified?: Yes 11/09/18 17:27 Consult Physician Routine Consulting Provider: Kevin Miller Consult Reason/Comments: Replacement of aggarwal cath Do you want consulting provider notified?: Yes Primary care physician: Physician Nonstaff Hospital Course: Final DIagnoses: -Sepsis: Secondary to Acute urinary tract infection with ESBL Ecoli, chronic Aggarwal catheter related, urology replaced Aggarwal catheter r/t urethral meatus erosion. - Improving right midlung atlectasis -Dysphagia with a PEG tube -History of DVT as well as chronic A. 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 Patient's will gather was replaced last time by urologist because of problems with his urethral meatus. Urology will be consulted. Patient was started on Zosyn patient has a pseudomonas in the urine last time. Patient is unable to forward much history to me patient chest x-ray did not show any pneumonic process patient is a PEG tube in place PEG tube site area appears to be clean without any infection. PEG tube was dislodged which was repositioned by a ER. Patient's Aggarwal catheter was replaced by urology today. Maintained on IV antibiotoics as per ID. MIdline placed. CLeared by all consults for dc. Patient is being discharged to [facility] in a stable condition with guarded prognosis. EXAMINATION: GENERAL: The patient is alert and oriented x3, not in any acute distress. Thin built with contractures HEENT: Pupils are round and equally reacting to light. EOMI. No scleral icterus. No conjunctival pallor. Normocephalic, atraumatic. No pharyngeal erythema. No thyromegaly. CARDIOVASCULAR: S1 and S2 present. No murmurs, rubs, or gallops. PULMONARY: Chest is clear to auscultation, no wheezing or crackles. ABDOMEN: Soft, nontender, nondistended, normoactive bowel sounds. No palpable organomegaly. Right tube in place MUSCULOSKELETAL: No joint swelling or deformity. EXTREMITIES: No cyanosis, clubbing, or pedal edema. NEUROLOGICAL: Gross neurological examination did not reveal any new focal deficits. Chronically bedbound with the muscle atrophy and contractures SKIN: Healed decubitus ulcers Microbiology 11/09/18 12:11 Blood Blood Culture - Preliminary No Growth after 72 hours 11/10/18 12:00 Urine,Catheterized Urine Culture - Preliminary Gram Neg Bacilli 11/09/18 12:01 Urine,Voided Urine Culture - Final Escherichia coli Proteus mirabilis The impression and plan of care has been dictated as directed. : I performed a history and examination of this patient, discussed the same with the dictator. I agree with the dictator's note ,documented as a scribe. Any additional findings or plans will be noted. Time Taken: 35 min. Patient Condition at Discharge: Stable Plan - Discharge Summary Discharge Rx Participant: No New Discharge Prescriptions: New Ertapenem [INVanz] 1 gm IVPB Q24H #7 bag No Action Metoprolol Tartrate [Lopressor] 25 mg PEG/G-TUBE Q12H Gabapentin 250mg/5ml 250 mg PEG/G-TUBE Q12H Cholecalciferol [Vitamin D3] 1,000 unit PEG/G-TUBE DAILY Docusate Oral Soln [Colace Oral Soln] 40 mg PEG/G-TUBE BID Amantadine 50mg/5ml 100 mg PEG/G-TUBE Q12H Ascorbic Acid [Vitamin C] 250 mg PEG/G-TUBE DAILY guaiFENesin [guaiFENesin Oral Solution] 200 mg PEG/G-TUBE Q6H Scopolamine 1.5MG/72Hr Patch [TransDerm Scop] 1 patch TRANSDERM Q72H Acetaminophen 500mg/15ml 160 mg PEG/G-TUBE Q6H PRN PRN Reason: Pain Baclofen 5 mg PEG/G-TUBE TID Nexium 20mg Packet 20 mg PEG/G-TUBE DAILY carBAMazepine [TEGretol Susp] 200 mg PEG/G-TUBE BID Furosemide [Lasix] 20 mg PEG/G-TUBE DAILY Oxybutynin Chloride [Ditropan] 5 mg PEG/G-TUBE TID #90 tab Cranberry Cap 405mg 405 mg PEG/G-TUBE BID Pregabalin [Lyrica] 150 mg PO HS@2100 Pregabalin [Lyrica] 75 mg PEG/G-TUBE DAILY@0900 Sulfamethox-Tmp 800-160Mg [Bactrim DS 800-160 mg] 1 tab PEG/G-TUBE Q12HR Warfarin [Coumadin] 2.5 mg PEG/G-TUBE DAILY@1700 Warfarin [Coumadin] 3 mg PEG/G-TUBE DAILY@1700 Discharge Medication List Gabapentin 250mg/5ml 250 mg PEG/G-TUBE Q12H 08/07/17 [History] Metoprolol Tartrate [Lopressor] 25 mg PEG/G-TUBE Q12H 08/07/17 [History] Amantadine 50mg/5ml 100 mg PEG/G-TUBE Q12H 12/28/17 [History] Ascorbic Acid [Vitamin C] 250 mg PEG/G-TUBE DAILY 12/28/17 [History] Cholecalciferol [Vitamin D3] 1,000 unit PEG/G-TUBE DAILY 12/28/17 [History] Docusate Oral Soln [Colace Oral Soln] 40 mg PEG/G-TUBE BID 12/28/17 [History] Scopolamine 1.5MG/72Hr Patch [TransDerm Scop] 1 patch TRANSDERM Q72H 12/28/17 [ History] guaiFENesin [guaiFENesin Oral Solution] 200 mg PEG/G-TUBE Q6H 12/28/17 [History] Acetaminophen 500mg/15ml 160 mg PEG/G-TUBE Q6H PRN 02/15/18 [History] Baclofen 5 mg PEG/G-TUBE TID 04/07/18 [History] Nexium 20mg Packet 20 mg PEG/G-TUBE DAILY 04/07/18 [History] Furosemide [Lasix] 20 mg PEG/G-TUBE DAILY 05/24/18 [History] carBAMazepine [TEGretol Susp] 200 mg PEG/G-TUBE BID 05/24/18 [History] Oxybutynin Chloride [Ditropan] 5 mg PEG/G-TUBE TID #90 tab 07/29/18 [Rx] Cranberry Cap 405mg 405 mg PEG/G-TUBE BID 11/09/18 [History] Pregabalin [Lyrica] 75 mg PEG/G-TUBE DAILY@0900 11/09/18 [History] Pregabalin [Lyrica] 150 mg PO HS@2100 11/09/18 [History] Sulfamethox-Tmp 800-160Mg [Bactrim DS 800-160 mg] 1 tab PEG/G-TUBE Q12HR [History] Warfarin [Coumadin] 2.5 mg PEG/G-TUBE DAILY@1700 11/09/18 [History] Warfarin [Coumadin] 3 mg PEG/G-TUBE DAILY@1700 11/09/18 [History] Ertapenem [INVanz] 1 gm IVPB Q24H #7 bag 11/12/18 [Rx] Follow up Appointment(s)/Referral(s): Nonstaff,Physician [Primary Care Provider] - 1-2 days
--- NOTE | 2018-11-12 17:38 | P.PN ---
Subjective Progress Note Date: 11/11/18 Interval history: This is 58-year-old gentleman came in because of high-grade fever sepsis believed to be secondary to urinary tract infection patient is a chronic Stein catheter with significantly abnormal uterine patient is mostly nonverbal patient does have advanced multiple cirrhosis because of which patient is bedbound with contractors. Patient's will gather was replaced last time by urologist because of problems with his urethral meatus. Urology will be consulted. Patient was started on Zosyn patient has a pseudomonas in the urine last time. Patient is unable to forward much history to me patient chest x-ray did not show any pneumonic process patient is a PEG tube in place PEG tube site area appears to be clean without any infection. PEG tube was dislodged which was repositioned by a ER. Patient's Stein catheter was replaced by urology today. Maintained on IV antibiotoics as per ID. MIdline placed. CLeared by all consults for dc. Patient is being discharged to [facility] in a stable condition with guarded prognosis. 11/11/2018 urine culture reporting ESBL E. coli. IV antibiotics adjusted, currently on Invanz as per infectious disease. Scheduled for midline catheter placement tomorrow. Afebrile,T-max 100.9.chest x-rayreporting improving streak atelectasis of the right midlung.maintaining O2 sats in the high 90s on 2 L nasal cannula.INR 2.7. Objective - Vital Signs Vital signs: Vital Signs Temp 98.3 F 11/11/18 11:55 Pulse 69 11/11/18 11:55 Resp 16 11/11/18 11:55 BP 122/75 11/11/18 11:55 Pulse Ox 99 11/11/18 11:55 Intake & Output 11/11/18 11/11/18 11/12/18 06:59 18:59 06:59 Intake Total 785 520 Output Total 1200 2500 Balance Weight 77.5 kg 77.5 kg Intake: Intake, IV Titration 200 Amount Piperacillin-Tazobactam 3 200 .375 gm In Sodium Chloride 0.9% 100 ml @ 25 mls/hr IVPB Q8H [facility] Rx#: [id number] Tube Feeding 585 520 Output: Urine 1200 2500 Uretheral (Stein) 1200 1200 Other: Voiding Method Indwelling Catheter # Bowel Movements 1 - Exam GENERAL: The patient is alert and oriented x3, not in any acute distress. Thin built with contractures HEENT: Pupils are round and equally reacting to light. EOMI. No scleral icterus. No conjunctival pallor. Normocephalic, atraumatic. No pharyngeal erythema. No thyromegaly. CARDIOVASCULAR: S1 and S2 present. No murmurs, rubs, or gallops. PULMONARY: Chest is clear to auscultation, no wheezing or crackles. ABDOMEN: Soft, nontender, nondistended, normoactive bowel sounds. No palpable organomegaly. Right tube in place MUSCULOSKELETAL: No joint swelling or deformity. EXTREMITIES: No cyanosis, clubbing, or pedal edema. NEUROLOGICAL: Gross neurological examination did not reveal any new focal deficits. Chronically bedbound with the muscle atrophy and contractures SKIN: Healed decubitus ulcers 11/09/18 12:11 Blood Blood Culture - Preliminary No Growth after 72 hours 11/10/18 12:00 Urine,Catheterized Urine Culture - Preliminary Gram Neg Bacilli 11/09/18 12:01 Urine,Voided Urine Culture - Final Escherichia coli Proteus mirabilis - Labs CBC & Chem 7: 11/12/18 09:23 11/12/18 09:23 Labs: Abnormal Lab Results - Last 24 Hours (Table) 11/11/18 11/11/18 Range/Units 07:10 07:10 PT 25.7 H (9.0-12.0) sec INR 2.7 H (<1.2) Chloride 110 H (98-107) mmol/L Glucose 130 H (74-99) mg/dL Calcium 8.0 L (8.4-10.2) mg/dL Microbiology - Last 24 Hours (Table) 11/10/18 12:00 Urine Culture - Preliminary Urine,Catheterized 11/09/18 12:11 Blood Culture - Preliminary Blood No Growth after 48 hours 11/09/18 12:01 Urine Culture - Preliminary Urine,Voided Escherichia coli Proteus spec Assessment and Plan Assessment: -Sepsis: Secondary to Acute urinary tract infection with ESBL Ecoli, chronic Stein catheter related, urology replaced Stein catheter r/t urethral meatus erosion. - Improving right midlung atlectasis -Dysphagia with a PEG tube -History of DVT as well as chronic A. fib -Hypertension -Multiple sclerosis with chronic debility chronic contractures supportive care Plan: Continue on current medication regime ,monitoring and symptomatic treatment. decrease Coumadin to 2 mg daily at 1800. Maintain IV antibiotics as per infectious disease. Scheduled for midline placement tomorrow. Discharge planning in progress for return to [facility], tomorrow, pending infectious disease clearance. The impression and plan of care has been dictated as directed. : I performed a history and examination of this patient, discussed the same with the dictator. I agree with the dictator's note ,documented as a scribe. Any additional findings or plans will be noted.
[2018-11-12] MEDS ORDERED: WARFARIN 2 MG TAB PO SCH (18:00)
[2018-11-12] MEDS: PREGABALIN 75 MG CAP PO SCH (22:15)
[2018-11-13] MEDS: AMANTADINE HCL PEG/G-TUBE SCH ×2 (00:12→08:39)
[2018-11-13] MEDS: guaiFENesin SYRUP 100MG/5ML 200 MG/10 ML CUP PEG/G-TUBE SCH ×3 (04:12→15:58)
[2018-11-13 07:26] LABS: INR 2.1 (<1.2); Prothrombin Time 20.6 sec (9.0-12.0)
[2018-11-13] MEDS: PANTOPRAZOLE 40 MG/10 ML VIAL IV SCH (08:38)
[2018-11-13] MEDS: PREGABALIN 75 MG CAP PEG/G-TUBE SCH (08:39)
[2018-11-13] MEDS: ERTAPENEM 1 GM in SODIUM CHLORIDE 0.9% 50 ML IVPB SCH (08:39)
[2018-11-13] MEDS: METOPROLOL TARTRATE 25 MG TAB PEG/G-TUBE SCH (08:39)
[2018-11-13] MEDS: OXYBUTYNIN CHLORIDE 5 MG TAB PEG/G-TUBE SCH ×2 (08:39→15:58)
[2018-11-13] MEDS: CHOLECALCIFEROL 1,000 UNIT TAB PEG/G-TUBE SCH (08:39)
[2018-11-13] MEDS: FUROSEMIDE 20 MG TAB PEG/G-TUBE SCH (08:39)
[2018-11-13] MEDS: carBAMazepine 200 MG TAB PEG/G-TUBE SCH (08:39)
[2018-11-13] MEDS: ASCORBIC ACID 500 MG TAB PEG/G-TUBE SCH (08:39)
[2018-11-13] MEDS: BACLOFEN 10 MG TAB PEG/G-TUBE SCH ×2 (08:40→15:58)
[2018-11-13] MEDS: DOCUSATE ORAL SOLN 100 MG/10 ML CUP PEG/G-TUBE SCH (08:40)
[2018-11-13] MEDS: GABAPENTIN PEG/G-TUBE SCH (08:40)
[2018-11-13 11:58] VITALS: BP 128/70; PULSE 86; RESP 16; TEMP 97.8
--- NOTE | 2018-11-13 14:11 | P.DS ---
Providers Date of admission: 11/09/18 15:39 Expected date of discharge: 11/13/18 Attending physician: MD Dr. Sebastien Becerra Consults: 11/09/18 16:02 Consult Physician Stat Consulting Provider: Kevin Miller Consult Reason/Comments: Aggarwal placement, Chronic UTI Do you want consulting provider notified?: Yes 11/09/18 17:11 Consult Physician Routine Consulting Provider: Sonal Farah Consult Reason/Comments: UTI Do you want consulting provider notified?: Yes 11/09/18 17:27 Consult Physician Routine Consulting Provider: Kevin Miller Consult Reason/Comments: Replacement of aggarwal cath Do you want consulting provider notified?: Yes Primary care physician: Physician Nonstaff Hospital Course: Final DIagnoses: -Sepsis: Secondary to Acute urinary tract infection with ESBL Ecoli, Pseudomonas aeruginosa chronic Aggarwal catheter related, urology replaced Aggarwal catheter r/t urethral meatus erosion. - Improving right midlung atlectasis -Dysphagia with a PEG tube -History of DVT as well as chronic A. 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 Patient's will gather was replaced last time by urologist because of problems with his urethral meatus. Urology will be consulted. Patient was started on Zosyn patient has a pseudomonas in the urine last time. Patient is unable to forward much history to me patient chest x-ray did not show any pneumonic process patient is a PEG tube in place PEG tube site area appears to be clean without any infection. PEG tube was dislodged which was repositioned by a ER. Patient's Aggarwal catheter was replaced by urology today. Maintained on IV antibiotoics as per ID. MIdline placed. CLeared by all consults for dc. Patient is being discharged to [facility] in a stable condition with guarded prognosis. EXAMINATION: GENERAL: alert and oriented x3, no acute distress. CARDIOVASCULAR: S1 and S2 present. No murmurs, rubs, or gallops. PULMONARY: Chest is clear to auscultation, no wheezing or crackles. ABDOMEN: Soft, nontender, nondistended, normoactive bowel sounds. No palpable organomegaly. Right tube in place NEUROLOGICAL: Gross neurological examination did not reveal any new focal deficits. Chronically bedbound with the muscle atrophy and contractures Microbiology 11/10/18 12:00 Urine,Catheterized Urine Culture - Final Pseudomonas aeruginosa 11/09/18 12:11 Blood Blood Culture - Preliminary No Growth after 72 hours 11/09/18 12:01 Urine,Voided Urine Culture - Final Escherichia coli Proteus mirabilis The impression and plan of care has been dictated as directed. : I performed a history and examination of this patient, discussed the same with the dictator. I agree with the dictator's note ,documented as a scribe. Any additional findings or plans will be noted. Time Taken: 35 min. Patient Condition at Discharge: Stable Patient Condition at Discharge: Stable Plan - Discharge Summary Discharge Rx Participant: No New Discharge Prescriptions: New Ertapenem [INVanz] 1 gm IVPB Q24H #7 bag Warfarin [Coumadin] 2 mg PO DAILY@1800 tab Continue Metoprolol Tartrate [Lopressor] 25 mg PEG/G-TUBE Q12H Cholecalciferol [Vitamin D3] 1,000 unit PEG/G-TUBE DAILY Docusate Oral Soln [Colace Oral Soln] 40 mg PEG/G-TUBE BID Amantadine 50mg/5ml 100 mg PEG/G-TUBE Q12H Ascorbic Acid [Vitamin C] 250 mg PEG/G-TUBE DAILY guaiFENesin [guaiFENesin Oral Solution] 200 mg PEG/G-TUBE Q6H Scopolamine 1.5MG/72Hr Patch [TransDerm Scop] 1 patch TRANSDERM Q72H Acetaminophen 500mg/15ml 160 mg PEG/G-TUBE Q6H PRN PRN Reason: Pain Baclofen 5 mg PEG/G-TUBE TID Nexium 20mg Packet 20 mg PEG/G-TUBE DAILY carBAMazepine [TEGretol Susp] 200 mg PEG/G-TUBE BID Furosemide [Lasix] 20 mg PEG/G-TUBE DAILY Oxybutynin Chloride [Ditropan] 5 mg PEG/G-TUBE TID #90 tab Cranberry Cap 405mg 405 mg PEG/G-TUBE BID Pregabalin [Lyrica] 150 mg PO HS@2100 #6 cap Gabapentin 250mg/5ml 250 mg PEG/G-TUBE Q12H #30 ml Pregabalin [Lyrica] 75 mg PEG/G-TUBE DAILY@0900 #3 cap Discontinued Sulfamethox-Tmp 800-160Mg [Bactrim DS 800-160 mg] 1 tab PEG/G-TUBE Q12HR Warfarin [Coumadin] 2.5 mg PEG/G-TUBE DAILY@1700 Warfarin [Coumadin] 3 mg PEG/G-TUBE DAILY@1700 Discharge Medication List Metoprolol Tartrate [Lopressor] 25 mg PEG/G-TUBE Q12H 08/07/17 [History] Amantadine 50mg/5ml 100 mg PEG/G-TUBE Q12H 12/28/17 [History] Ascorbic Acid [Vitamin C] 250 mg PEG/G-TUBE DAILY 12/28/17 [History] Cholecalciferol [Vitamin D3] 1,000 unit PEG/G-TUBE DAILY 12/28/17 [History] Docusate Oral Soln [Colace Oral Soln] 40 mg PEG/G-TUBE BID 12/28/17 [History] Scopolamine 1.5MG/72Hr Patch [TransDerm Scop] 1 patch TRANSDERM Q72H 12/28/17 [ History] guaiFENesin [guaiFENesin Oral Solution] 200 mg PEG/G-TUBE Q6H 12/28/17 [History] Acetaminophen 500mg/15ml 160 mg PEG/G-TUBE Q6H PRN 02/15/18 [History] Baclofen 5 mg PEG/G-TUBE TID 04/07/18 [History] Nexium 20mg Packet 20 mg PEG/G-TUBE DAILY 04/07/18 [History] Furosemide [Lasix] 20 mg PEG/G-TUBE DAILY 05/24/18 [History] carBAMazepine [TEGretol Susp] 200 mg PEG/G-TUBE BID 05/24/18 [History] Oxybutynin Chloride [Ditropan] 5 mg PEG/G-TUBE TID #90 tab 07/29/18 [Rx] Cranberry Cap 405mg 405 mg PEG/G-TUBE BID 11/09/18 [History] Ertapenem [INVanz] 1 gm IVPB Q24H #7 bag 11/12/18 [Rx] Warfarin [Coumadin] 2 mg PO DAILY@1800 tab 11/12/18 [Rx] Gabapentin 250mg/5ml 250 mg PEG/G-TUBE Q12H #30 ml 11/13/18 [Rx] Pregabalin [Lyrica] 75 mg PEG/G-TUBE DAILY@0900 #3 cap 11/13/18 [Rx] Pregabalin [Lyrica] 150 mg PO HS@2100 #6 cap 11/13/18 [Rx] Follow up Appointment(s)/Referral(s): Matteo Hernandez MD [REFERRING] - 3 Days Kevin Miller MD [STAFF PHYSICIAN] - As Needed Activity/Diet/Wound Care/Special Instructions: [facility]. INR daily cbc,bmp in 3 days
[2018-11-13] MEDS ORDERED: CEFEPIME 2 GM in SODIUM CHLORIDE 0.9% 100 ML IVPB STA (14:16)
--- NOTE | 2018-11-13 15:13 | PN ---
PROGRESS NOTE DATE OF SERVICE: 11/13/2018 REASON FOR FOLLOWUP: ESBL E coli urinary tract infection, catheter associated. INTERVAL HISTORY: The patient is currently afebrile. The patient discharge was put on hold yesterday because of apparent low-grade fever of 99.4, patient is currently sleepy, more awake, alert compared to yesterday. No nausea, vomiting, or any diarrhea. PHYSICAL EXAMINATION: Blood pressure 128/70 with a pulse of 86, temperature 97.8. He is 94% on 2 L nasal cannula. General description is a middle-aged male, lying in bed in no distress. RESPIRATORY SYSTEM: Unlabored breathing, clear to auscultation anteriorly. HEART: S1, S2. Regular rate and rhythm. ABDOMEN: Soft, no tenderness. LABS: No new labs have been obtained today. The patient repeat urine culture finalized with Pseudomonas aeruginosa, resistant to quinolones. DIAGNOSTIC IMPRESSION AND PLAN: Patient with in-hospital sepsis. Source was likely catheter associated urinary tract infection. The patient urine culture did show an ESBL E coli. His Stein catheter was changed and repeat urine now showing Pseudomonas aeruginosa that would not be covered with the Invanz. Will switch over antibiotic therapy to cefepime 2 g 12-4 for about a week with close outpatient followup. MMODL / IJN: [id number] /
== END 2018-11-13 16:55 | DRG 698 ==
LOC: EC 09:31 → 3NMEDONC 15:39
PROVIDERS: ADMIT Internal Medicine; ATTEND Internal Medicine
PROC: 05H533Z Insertion of Infusion Device into Right Subclavian Vein, Percutaneous Approach (ICD-10-PCS; principal; 2018-11-12 09:00)
DX: T83.511A Infection and inflammatory reaction due to indwelling urethral catheter, initial encounter (principal); A41.51 Sepsis due to Escherichia coli [E. coli]; A41.52 Sepsis due to Pseudomonas; Z43.1 Encounter for attention to gastrostomy; N39.0 Urinary tract infection, site not specified; G35 Multiple sclerosis; K21.9 Gastro-esophageal reflux disease without esophagitis; I10 Essential (primary) hypertension; F32.9 Major depressive disorder, single episode, unspecified; R13.10 Dysphagia, unspecified; R53.81 Other malaise; M62.40 Contracture of muscle, unspecified site; B96.5 Pseudomonas (aeruginosa) (mallei) (pseudomallei) as the cause of diseases classified elsewhere; N31.9 Neuromuscular dysfunction of bladder, unspecified; I48.2 Chronic atrial fibrillation; K74.60 Unspecified cirrhosis of liver; Y84.6 Urinary catheterization as the cause of abnormal reaction of the patient, or of later complication, without mention of misadventure at the time of the procedure; Z16.12 Extended spectrum beta lactamase (ESBL) resistance; Z86.14 Personal history of Methicillin resistant Staphylococcus aureus infection; Z74.01 Bed confinement status; Z86.718 Personal history of other venous thrombosis and embolism; Z79.01 Long term (current) use of anticoagulants; Z79.899 Other long term (current) drug therapy; Z87.440 Personal history of urinary (tract) infections; Z88.1 Allergy status to other antibiotic agents
CPT/HCPCS: 36410; 36415; 43762; 71045; 71046; 76937; 80048; 80053; 81001; 83605; 85025; 85027; 85610; 85730; 87040; 87077; 87086; 87186; 93005; 94760; 96365; 96367; 99285

== ENCOUNTER 2018-11-28 21:55 | Emergency (ER) | payer MEDICARE, OTHER ==
[2018-11-28 22:14] VITALS: RESP 18
--- NOTE | 2018-11-29 00:36 | XR ---
EXAM: XR Abdomen, 2 Views CLINICAL HISTORY: PEG tube placement TECHNIQUE: Frontal view of the abdomen/pelvis with upright view of the abdomen. COMPARISON: No relevant prior studies available. FINDINGS: Intraperitoneal space: No free air. Gastrointestinal tract: Contrast material noted in the stomach and duodenum. No evidence for extravasation did detected Bones/joints: Unremarkable. IMPRESSION: Normal abdominal x-rays. PEG tube appears to be in appropriate position. No evidence for extraluminal extravasation of contrast
--- NOTE | 2018-11-29 00:38 | ED ---
General Adult HPI - General Chief complaint: Recheck/Abnormal Lab/Rx Stated complaint: Displaced Tube Time Seen by Provider: 11/28/18 22:17 Source: EMS Mode of arrival: EMS Limitations: physical limitation - History of Present Illness Initial comments: 58-year-old male patient presents to the emergency department today from an extended care facility for a displaced PEG tube. Apparently earlier in the day the tube had been pulled out and reinserted. They're unable to insert as far as it usually is some presented here for further evaluation. Patient denies any discomfort around the tube area. Denies any nausea or vomiting. Denies any constipation or diarrhea. Patient denies any recent rash, fever, chills, shortness breath, chest pain, back pain, numbness, tingling, dizziness, weakness , hematuria, dysuria, urinary urgency, urinary frequency, headache, visual changes, or any other complaints. - Related Data Home Medications Medication Instructions Recorded Confirmed Amantadine 50mg/5ml 100 mg PEG/G-TUBE Q12H 12/28/17 11/28/18 Ascorbic Acid [Vitamin C] 250 mg PEG/G-TUBE DAILY 12/28/17 11/28/18 Cholecalciferol [Vitamin D3] 1,000 unit PEG/G-TUBE DAILY 12/28/17 11/28/18 Docusate Oral Soln [Colace Oral 200 mg PEG/G-TUBE BID 12/28/17 11/28/18 Soln] Scopolamine 1.5MG/72Hr Patch 1 patch TRANSDERM Q72H 12/28/17 11/28/18 [TransDerm Scop] guaiFENesin [guaiFENesin Oral 200 mg PEG/G-TUBE Q6H 12/28/17 11/28/18 Solution] Acetaminophen 500mg/15ml 160 mg PEG/G-TUBE Q6H PRN 02/15/18 11/28/18 Baclofen 5 mg PEG/G-TUBE TID 04/07/18 11/28/18 Furosemide [Lasix] 20 mg PEG/G-TUBE DAILY 05/24/18 11/28/18 carBAMazepine [TEGretol Susp] 200 mg PEG/G-TUBE BID 05/24/18 11/28/18 Cranberry Cap 405mg 405 mg PEG/G-TUBE BID 11/09/18 11/28/18 Esomeprazole Magnesium Packet 20 mg PEG/G-TUBE DAILY 11/28/18 11/28/18 Pregabalin [Lyrica] 150 mg PEG/G-TUBE Q12H 11/28/18 11/28/18 Warfarin [Coumadin] 5 mg PO DAILY 11/28/18 11/28/18 Previous Rx's Medication Instructions Recorded Oxybutynin Chloride [Ditropan] 5 mg PEG/G-TUBE TID #90 tab 07/29/18 Allergies Allergy/AdvReac Type Severity Reaction Status Date / Time meropenem [From Merrem] Allergy Rash/Hives Verified 11/28/18 22:34 Review of Systems ROS Statement: Those systems with pertinent positive or pertinent negative responses have been documented in the HPI. ROS Other: All systems not noted in ROS Statement are negative. Past Medical History Past Medical History: Deep Vein Thrombosis (DVT), GERD/Reflux, Hypertension, Musculoskeletal Disorder, Pneumonia, Renal Disease Additional Past Medical History / Comment(s): MS, cognitive impariment/ non verbal, NPO-peg tube,DVT-arm , IDC ,INCONT OF BOWEL. DYSARTHRIA/ANARTHRIA/ DYSPHAGIA. BEDBOUND, RACHEL LIFT TO W/C, neurogenic bladder,m History of Any Multi-Drug Resistant Organisms: MRSA Date of last positivie culture/infection: ESBL 11/09/18 MRSA 10/21/17 MDRO Source:: URINE Additional Past Surgical History / Comment(s): PEG TUBE, HX OF GASTROSTOMY, PICC LINE Past Anesthesia/Blood Transfusion Reactions: Unable to Obtain Past Psychological History: Depression Smoking Status: Never smoker Past Alcohol Use History: None Reported Past Drug Use History: None Reported - Past Family History Father Family Medical History: Unable to Obtain Additional Family Medical History / Comment(s): patient is nonverbal Mother Family Medical History: Unable to Obtain Additional Family Medical History / Comment(s): patient is nonverbal General Exam Limitations: physical limitation (Patient is nonverbal, does respond with head nods or shakes.) General appearance: alert, in no apparent distress, other (This is a well- developed, thin appearing adult male patient in no acute distress. Vital signs upon presentation are temperature 98.8F, pulse 78, respirations 18, blood pressure 144/94, pulse ox 97% on room air.) Eye exam: Present: normal appearance, PERRL, EOMI. Absent: scleral icterus, conjunctival injection, periorbital swelling ENT exam: Present: normal exam, normal oropharynx, mucous membranes moist Neck exam: Present: normal inspection. Absent: tenderness, meningismus, lymphadenopathy Respiratory exam: Present: normal lung sounds bilaterally. Absent: respiratory distress, wheezes, rales, rhonchi, stridor Cardiovascular Exam: Present: regular rate, normal rhythm, normal heart sounds. Absent: systolic murmur, diastolic murmur, rubs, gallop, clicks GI/Abdominal exam: Present: soft, normal bowel sounds, other (There is a PEG tube noted to the mid upper abdomen). Absent: distended, tenderness, guarding, rebound, rigid Neurological exam: Present: alert, oriented X3, CN II-XII intact Psychiatric exam: Present: normal affect, normal mood Skin exam: Present: warm, dry, intact, normal color. Absent: rash Course Vital Signs 11/28/18 11/29/18 22:09 01:04 Temperature 98.8 F 98.0 F Pulse Rate 78 70 Respiratory 18 18 Rate Blood Pressure 144/94 154/80 O2 Sat by Pulse 97 97 Oximetry Medical Decision Making - Medical Decision Making 58-year-old male patient presented to the emergency department today for evaluation of a misplaced PEG tube. We did remove the tube and replaced it with a 20-Lao PEG tube. Obtained x-ray with contrast which showed good placement of the tube. Patient tolerated this procedure well did have some minor bleeding around the site. He'll be discharged back to the facility. Disposition Clinical Impression: PEG tube malfunction Disposition: HOME SELF-CARE Condition: Good Instructions (If sedation given, give patient instructions): How to Use and Care for Your PEG Tube (ED) Additional Instructions: Follow-up with your primary care physician as needed. Return to the emergency department for any new, worsening, or concerning symptoms. Is patient prescribed a controlled substance at d/c from ED?: No Referrals: Matteo Hernandez MD [Primary Care Provider] - 1-2 days Time of Disposition: 00:38
[2018-11-29 01:06] VITALS: BP 154/80; PULSE 70; TEMP 98
== END 2018-11-29 01:06 | disposition home or self-care (01) ==
LOC: EC 21:55
DX: K94.23 Gastrostomy malfunction (principal); K21.9 Gastro-esophageal reflux disease without esophagitis; I10 Essential (primary) hypertension; Z79.01 Long term (current) use of anticoagulants; Z79.899 Other long term (current) drug therapy; Z88.1 Allergy status to other antibiotic agents; Z86.718 Personal history of other venous thrombosis and embolism
CPT/HCPCS: 43762; 74018; 99283

== ENCOUNTER 2019-01-26 10:01 | Emergency (ER) | payer MEDICARE, OTHER ==
[2019-01-26 10:28] VITALS: RESP 18
--- NOTE | 2019-01-26 11:22 | ED ---
General Adult HPI - General Chief complaint: Recheck/Abnormal Lab/Rx Stated complaint: peg tube issues Time Seen by Provider: 01/26/19 10:08 Source: patient, EMS, RN notes reviewed Mode of arrival: EMS Limitations: language barrier - History of Present Illness Initial comments: Patient is a pleasant 58-year-old male presenting to the emergency department after PEG tube coming out. Patient does have history of previous PEG tube in order to have feedings. Patient has limited verbal capability and is limited providing history. Patient is able to answer affirmative or negative appropriately. Patient denies any complaints other than the PEG tube coming out. Patient denies any pain. - Related Data Home Medications Medication Instructions Recorded Confirmed Amantadine 50mg/5ml 100 mg PEG/G-TUBE Q12H 12/28/17 11/28/18 Ascorbic Acid [Vitamin C] 250 mg PEG/G-TUBE DAILY 12/28/17 11/28/18 Cholecalciferol [Vitamin D3] 1,000 unit PEG/G-TUBE DAILY 12/28/17 11/28/18 Docusate Oral Soln [Colace Oral 200 mg PEG/G-TUBE BID 12/28/17 11/28/18 Soln] Scopolamine 1.5MG/72Hr Patch 1 patch TRANSDERM Q72H 12/28/17 11/28/18 [TransDerm Scop] guaiFENesin [guaiFENesin Oral 200 mg PEG/G-TUBE Q6H 12/28/17 11/28/18 Solution] Acetaminophen 500mg/15ml 160 mg PEG/G-TUBE Q6H PRN 02/15/18 11/28/18 Baclofen 5 mg PEG/G-TUBE TID 04/07/18 11/28/18 Furosemide [Lasix] 20 mg PEG/G-TUBE DAILY 05/24/18 11/28/18 carBAMazepine [TEGretol Susp] 200 mg PEG/G-TUBE BID 05/24/18 11/28/18 Cranberry Cap 405mg 405 mg PEG/G-TUBE BID 11/09/18 11/28/18 Esomeprazole Magnesium Packet 20 mg PEG/G-TUBE DAILY 11/28/18 11/28/18 Pregabalin [Lyrica] 150 mg PEG/G-TUBE Q12H 11/28/18 11/28/18 Warfarin [Coumadin] 5 mg PO DAILY 11/28/18 11/28/18 Previous Rx's Medication Instructions Recorded Oxybutynin Chloride [Ditropan] 5 mg PEG/G-TUBE TID #90 tab 07/29/18 Allergies Allergy/AdvReac Type Severity Reaction Status Date / Time meropenem [From Merrem] Allergy Rash/Hives Verified 01/26/19 10:28 Review of Systems ROS Statement: Those systems with pertinent positive or pertinent negative responses have been documented in the HPI. ROS Other: All systems not noted in ROS Statement are negative. Constitutional: Denies: fever Eyes: Denies: eye pain ENT: Denies: ear pain Respiratory: Denies: cough Cardiovascular: Denies: chest pain Endocrine: Denies: fatigue Gastrointestinal: Denies: abdominal pain, nausea, vomiting Genitourinary: Denies: dysuria Musculoskeletal: Denies: back pain Skin: Denies: rash Neurological: Denies: weakness Past Medical History Past Medical History: Deep Vein Thrombosis (DVT), GERD/Reflux, Hypertension, Musculoskeletal Disorder, Pneumonia, Renal Disease Additional Past Medical History / Comment(s): MS, cognitive impariment/ non verbal, NPO-peg tube,DVT-arm , IDC ,INCONT OF BOWEL. DYSARTHRIA/ANARTHRIA/DYSPHA TABITHA. BEDBOUND, RACHEL LIFT TO W/C, neurogenic bladder,m History of Any Multi-Drug Resistant Organisms: MRSA Date of last positivie culture/infection: ESBL 11/09/18 MRSA 10/21/17 MDRO Source:: URINE Additional Past Surgical History / Comment(s): PEG TUBE, HX OF GASTROSTOMY, PICC LINE Past Anesthesia/Blood Transfusion Reactions: Unable to Obtain Past Psychological History: Depression Smoking Status: Never smoker Past Alcohol Use History: None Reported Past Drug Use History: None Reported - Past Family History Father Family Medical History: Unable to Obtain Additional Family Medical History / Comment(s): patient is nonverbal Mother Family Medical History: Unable to Obtain Additional Family Medical History / Comment(s): patient is nonverbal General Exam Limitations: language barrier General appearance: alert, in no apparent distress Head exam: Present: normocephalic Eye exam: Present: normal appearance Neck exam: Present: normal inspection Respiratory exam: Present: normal lung sounds bilaterally Cardiovascular Exam: Present: regular rate, normal rhythm GI/Abdominal exam: Present: soft, other (Patient does have opening where PEG tube was. There is minimal induration.). Absent: tenderness Extremities exam: Present: other (Extremities contracted) Neurological exam: Present: alert, other (Contracted extremities with weakness) Psychiatric exam: Present: normal affect, normal mood Skin exam: Present: normal color Course Vital Signs 01/26/19 10:15 Temperature 97.6 F Pulse Rate 76 Respiratory 18 Rate Blood Pressure 148/103 O2 Sat by Pulse 97 Oximetry Procedures - Feeding Tube Replacement Reason for Replacement: fell out Initial Tube Inserted: greater than 2 weeks Type of Tube: gastrostomy Use of Tube: medications and feeding Insertion Site Prior to Procedure: erythematous (Minimal) Tube Used for Reinsertion: other (20-Albanian) Albanian Tube Size (F): 20 Balloon Size (mls): 20 Verification of Placement: other (Flush is without difficulty and able to withdrawal fluid.) Tube Secured by: G-tube attachment device Patient Tolerated Procedure: well, no complications Disposition Clinical Impression: PEG tube malfunction Disposition: HOME SELF-CARE Condition: Stable Instructions (If sedation given, give patient instructions): How to Use and Care for Your PEG Tube (ED) Additional Instructions: Please follow-up with primary care physician in the next day or 2 for recheck. You may use PEG tube. Return for PEG tube problems, pain, fever, worsening symptoms or other concerns. Is patient prescribed a controlled substance at d/c from ED?: No Referrals: Matteo Hernandez MD [Primary Care Provider] - 1-2 days Time of Disposition: 11:25
[2019-01-26 13:17] VITALS: BP 159/99; PULSE 82; TEMP 97.8
== END 2019-01-26 12:00 | disposition home or self-care (01) ==
LOC: EC 10:01
DX: K94.23 Gastrostomy malfunction (principal); R29.898 Other symptoms and signs involving the musculoskeletal system; K21.9 Gastro-esophageal reflux disease without esophagitis; I10 Essential (primary) hypertension; F32.9 Major depressive disorder, single episode, unspecified; Z86.718 Personal history of other venous thrombosis and embolism; Z86.14 Personal history of Methicillin resistant Staphylococcus aureus infection; Z79.01 Long term (current) use of anticoagulants; Z79.899 Other long term (current) drug therapy; Z88.8 Allergy status to other drugs, medicaments and biological substances
CPT/HCPCS: 43762; 99283

== ENCOUNTER 2019-04-15 19:47 | Emergency (ER) | payer MEDICARE, OTHER ==
[2019-04-15] MEDS ORDERED: LIDOCAINE URO-JET JELLY 2% 5 ML KIT URETHRAL ONE (20:48)
--- NOTE | 2019-04-15 20:57 | ED ---
General Adult HPI - General Source: EMS Mode of arrival: ambulatory Limitations: no limitations <Penelope Bello - Last Filed: 04/15/19 23:56> <Kris Canada - Last Filed: 04/16/19 04:44> - General Chief complaint: Recheck/Abnormal Lab/Rx Stated complaint: Peg Tube Placement Time Seen by Provider: 04/15/19 20:36 - History of Present Illness Initial comments: Patient is a 58-year-old male presenting via EMS from [facility] due to his PEG tube falling out. Patient is alert but nonverbal. Patient did respond that he is not in any pain right now. It is unknown how long his PEG tube has been out. Upon arrival vital signs are stable. No other complaints at this time. (Penelope Bello) - Related Data Home Medications Medication Instructions Recorded Confirmed Amantadine 50mg/5ml 100 mg PEG/G-TUBE Q12H 12/28/17 04/15/19 Ascorbic Acid [Vitamin C] 250 mg PEG/G-TUBE DAILY 12/28/17 04/15/19 Cholecalciferol [Vitamin D3 (25 1,000 unit PEG/G-TUBE DAILY 12/28/17 04/15/19 Mcg = 1000 Iu)] Docusate Oral Soln [Colace Oral 200 mg PEG/G-TUBE BID 12/28/17 04/15/19 Soln] Scopolamine 1.5MG/72Hr Patch 1 patch TRANSDERM Q72H 12/28/17 04/15/19 [TransDerm Scop] guaiFENesin [guaiFENesin Oral 200 mg PEG/G-TUBE Q6H PRN 12/28/17 04/15/19 Solution] Baclofen 5 mg PEG/G-TUBE TID 04/07/18 04/15/19 Furosemide [Lasix] 20 mg PEG/G-TUBE DAILY 05/24/18 04/15/19 Cranberry Cap 405mg 405 mg PEG/G-TUBE BID 11/09/18 04/15/19 Pregabalin [Lyrica] 150 mg PEG/G-TUBE Q12H 11/28/18 04/15/19 Acetaminophen Oral Susp [Tylenol 320 mg PEG/G-TUBE Q6H PRN 01/26/19 04/15/19 Oral Susp] DULoxetine HCL [Cymbalta] 60 mg PEG/G-TUBE HS 01/26/19 04/15/19 Metoprolol Tartrate 25 mg PEG/G-TUBE BID 01/26/19 04/15/19 Omeprazole Magnesium [PriLOSEC 20 mg PEG/G-TUBE DAILY 01/26/19 04/15/19 Oral Susp] Warfarin [Coumadin] 0.5 mg PEG/G-TUBE MOWEFR 04/15/19 04/15/19 Warfarin [Coumadin] 5 mg PEG/G-TUBE DAILY 04/15/19 04/15/19 carBAMazepine [carBAMazepine Oral 300 mg PEG/G-TUBE Q8H 04/15/19 04/15/19 Susp] Previous Rx's Medication Instructions Recorded Oxybutynin Chloride [Ditropan] 5 mg PEG/G-TUBE TID #90 tab 07/29/18 Allergies Allergy/AdvReac Type Severity Reaction Status Date / Time meropenem [From Merrem] Allergy Rash/Hives Verified 04/15/19 22:02 Review of Systems ROS Other: All systems not noted in ROS Statement are negative. <Penelope Bello - Last Filed: 04/15/19 23:56> ROS Other: All systems not noted in ROS Statement are negative. <Kris Canada - Last Filed: 04/16/19 04:44> ROS Statement: Those systems with pertinent positive or pertinent negative responses have been documented in the HPI. Past Medical History Past Medical History: Deep Vein Thrombosis (DVT), GERD/Reflux, Hypertension, Musculoskeletal Disorder, Pneumonia, Renal Disease Additional Past Medical History / Comment(s): MS, cognitive impariment/ non verbal, NPO-peg tube,DVT-arm , IDC ,INCONT OF BOWEL. DYSARTHRIA/ANARTHRIA/DYSPHAGIA. BEDBOUND, RACHEL LIFT TO W/C, neurogenic bladder,m History of Any Multi-Drug Resistant Organisms: MRSA Date of last positivie culture/infection: ESBL 11/09/18 MRSA 10/21/17 MDRO Source:: URINE Additional Past Surgical History / Comment(s): PEG TUBE, HX OF GASTROSTOMY, PICC LINE Past Anesthesia/Blood Transfusion Reactions: Unable to Obtain Past Psychological History: Depression Smoking Status: Never smoker Past Alcohol Use History: None Reported Past Drug Use History: None Reported - Past Family History Father Family Medical History: Unable to Obtain Additional Family Medical History / Comment(s): patient is nonverbal Mother Family Medical History: Unable to Obtain Additional Family Medical History / Comment(s): patient is nonverbal <Penelope Bello Last Filed: 04/15/19 23:56> General Exam Limitations: language barrier (Patient is nonverbal, will respond to questions with shaking his head yes or no) General appearance: alert, in no apparent distress Head exam: Present: atraumatic, normocephalic Eye exam: Present: normal appearance, PERRL, EOMI ENT exam: Present: normal exam, normal oropharynx, mucous membranes moist Neck exam: Present: normal inspection Respiratory exam: Present: normal lung sounds bilaterally. Absent: respiratory distress, wheezes Cardiovascular Exam: Present: regular rate, normal rhythm, normal heart sounds. Absent: rubs, gallop GI/Abdominal exam: Present: soft, normal bowel sounds, other (Opening for gastrostomy tube present, no signs of infection). Absent: distended, tenderness, guarding Neurological exam: Present: alert Skin exam: Present: warm, dry, intact. Absent: rash, cyanosis <Penelope Bello - Last Filed: 04/15/19 23:56> Course Vital Signs 04/15/19 04/15/19 20:13 23:20 Temperature 98.7 F 98.6 F Pulse Rate 83 82 Respiratory 20 16 Rate Blood Pressure 133/81 132/78 O2 Sat by Pulse 95 98 Oximetry Procedures - Feeding Tube Replacement Reason for Replacement: fell out Initial Tube Inserted: greater than 2 weeks Type of Tube: gastrostomy Insertion Site Prior to Procedure: clean Tube Used for Reinsertion: other (gastrotomy tube) [place] Tube Size (F): 20 Balloon Size (mls): 20 Verification of Placement: KUB Tube Secured by: tape/dressing Patient Tolerated Procedure: well, no complications <Penelope Bello Last Filed: 04/15/19 23:56> Medical Decision Making <Penelope Bello Last Filed: 04/15/19 23:56> <Kris Canada - Last Filed: 04/16/19 04:44> - Medical Decision Making Patient is a 58-year-old male presenting from [facility] large because his PEG tube fell out. It is unknown how long his PEG tube was out. Patient is nonverbal but can respond with yes and no, shake of his head. Patient denies being in any pain right now. Vital signs are stable. PEG tube was replaced with same size, 20-[place], without complications. Chest x-ray confirms placement. Patient will be discharged back to [facility]. Case is discussed with Dr. Canada who assisted with the procedure. (Penelope Bello) I saw this patient in conjunction with the physician speech pathologist assistant. I performed independent history and physical exam. Agree with case management. I did directly supervise the PEG tube replacement. (Kris Canada) Disposition Is patient prescribed a controlled substance at d/c from ED?: No <Penelope Bello - Last Filed: 04/15/19 23:56> <Kris Canada - Last Filed: 04/16/19 04:44> Clinical Impression: PEG tube malfunction Disposition: HOME SELF-CARE Condition: Stable Instructions (If sedation given, give patient instructions): How to Use and Care for Your PEG Tube (ED), PEG Tube Insertion (DC) Additional Instructions: Please return to the Emergency Department if symptoms worsen or any other concerns. Referrals: Matteo Hernandez MD [Primary Care Provider] - 1-2 days
--- NOTE | 2019-04-15 23:13 | XR ---
EXAM: XR Abdomen, 2 Views CLINICAL HISTORY: ITS.REASON XR Reason: confirm peg tube placement TECHNIQUE: Frontal view of the abdomen/pelvis with upright view of the abdomen. COMPARISON: No relevant prior studies available. FINDINGS: See Impression. IMPRESSION: Contrast injected through the PEG tube fills the distal stomach and proximal duodenum. No extraluminal extravasation of contrast. Stool throughout the colon. No bowel obstruction.
[2019-04-15 23:21] VITALS: BP 132/78; PULSE 82; RESP 16; TEMP 98.6
== END 2019-04-15 23:20 | disposition home or self-care (01) ==
LOC: EC 19:47
DX: K94.23 Gastrostomy malfunction (principal); K21.9 Gastro-esophageal reflux disease without esophagitis; I10 Essential (primary) hypertension; G35 Multiple sclerosis; F32.9 Major depressive disorder, single episode, unspecified; Z86.14 Personal history of Methicillin resistant Staphylococcus aureus infection; Z86.718 Personal history of other venous thrombosis and embolism; Z79.01 Long term (current) use of anticoagulants; Z79.899 Other long term (current) drug therapy; Z88.8 Allergy status to other drugs, medicaments and biological substances
CPT/HCPCS: 43762; 74018; 99283

== ENCOUNTER 2019-06-03 23:04 | Inpatient (IN) | payer MEDICARE, OTHER ==
--- NOTE | 2019-06-03 23:43 | ED ---
General Adult HPI - General Chief complaint: Shortness of Breath Stated complaint: Altered Time Seen by Provider: 06/03/19 23:09 Source: EMS Mode of arrival: EMS Limitations: altered mental status - History of Present Illness Initial comments: This patient is a 59-year-old man, with history of MS, sent here from care home to be evaluated after he was less alert and responsive than is his usual state. I was reported that the patient currently is being treated for urinary tract infection. The patient also had hypotension and low pulse oximetry re adings at the care home. It was reported that he was given dose of ceftriaxone prior to transfer here. I reviewed the patient's paperwork reveals she is being treated for ESBL urinary tract infection. The patient is not able to give any history. Onset/Timin -: days(s) Treatments Prior to Arrival: other (Ceftriaxone) - Related Data Home Medications Medication Instructions Recorded Confirmed Amantadine 50mg/5ml 100 mg PEG/G-TUBE Q12H 12/28/17 06/03/19 Ascorbic Acid [Vitamin C] 250 mg PEG/G-TUBE DAILY 12/28/17 06/03/19 Cholecalciferol [Vitamin D3 (25 1,000 unit PEG/G-TUBE DAILY 12/28/17 06/03/19 Mcg = 1000 Iu)] Docusate Oral Soln [Colace Oral 200 mg PEG/G-TUBE BID 12/28/17 06/03/19 Soln] Scopolamine 1.5MG/72Hr Patch 1 patch TRANSDERM Q72H 12/28/17 06/03/19 [TransDerm Scop] guaiFENesin [guaiFENesin Oral 200 mg PEG/G-TUBE Q6H PRN 12/28/17 06/03/19 Solution] Baclofen 5 mg PEG/G-TUBE TID 04/07/18 06/03/19 Furosemide [Lasix] 20 mg PEG/G-TUBE DAILY 05/24/18 06/03/19 Pregabalin [Lyrica] 150 mg PEG/G-TUBE Q12H 11/28/18 06/03/19 Acetaminophen Oral Susp [Tylenol 320 mg PEG/G-TUBE Q6H PRN 01/26/19 06/03/19 Oral Susp] DULoxetine HCL [Cymbalta] 60 mg PEG/G-TUBE HS 01/26/19 06/03/19 Metoprolol Tartrate 25 mg PEG/G-TUBE BID 01/26/19 06/03/19 Omeprazole Magnesium [PriLOSEC 20 mg PEG/G-TUBE DAILY 01/26/19 06/03/19 Oral Susp] Warfarin [Coumadin] 0.5 mg PEG/G-TUBE MOWEFR 04/15/19 06/03/19 Warfarin [Coumadin] 5 mg PEG/G-TUBE DAILY 04/15/19 06/03/19 carBAMazepine [carBAMazepine Oral 300 mg PEG/G-TUBE Q8H 04/15/19 06/03/19 Susp] Cranberry Fruit Extract [Cranberry] 500 mg PEG/G-TUBE Q12H 06/03/19 06/03/19 cefTRIAXone [Rocephin] 1 gm IVPB ONCE 06/03/19 06/03/19 Previous Rx's Medication Instructions Recorded Oxybutynin Chloride [Ditropan] 5 mg PEG/G-TUBE TID #90 tab 07/29/18 Allergies Allergy/AdvReac Type Severity Reaction Status Date / Time meropenem [From Merrem] Allergy Rash/Hives Verified 06/03/19 23:14 Review of Systems ROS Statement: Those systems with pertinent positive or pertinent negative responses have been documented in the HPI. ROS Other: All systems not noted in ROS Statement are negative. Limitations: ROS unobtainable due to patients medical condition (Altered mental status) Past Medical History Past Medical History: Deep Vein Thrombosis (DVT), GERD/Reflux, Hypertension, Musculoskeletal Disorder, Pneumonia, Renal Disease Additional Past Medical History / Comment(s): MS, cognitive impariment/ non verbal, NPO-peg tube,DVT-arm , IDC ,INCONT OF BOWEL. DYSARTH HONG/ANARTHRIA/DYSPHAGIA. BEDBOUND, RACHEL LIFT TO W/C, neurogenic bladder,m History of Any Multi-Drug Resistant Organisms: MRSA Date of last positivie culture/infection: ESBL 11/09/18 MRSA 10/21/17 MDRO Source:: URINE Additional Past Surgical History / Comment(s): PEG TUBE, HX OF GASTROSTOMY, PICC LINE Past Anesthesia/Blood Transfusion Reactions: Unable to Obtain Past Psychological History: Depression Smoking Status: Never smoker Past Alcohol Use History: None Reported Past Drug Use History: None Reported - Past Family History Father Family Medical History: Unable to Obtain Additional Family Medical History / Comment(s): patient is nonverbal Mother Family Medical History: Unable to Obtain Additional Family Medical History / Comment(s): patient is nonverbal General Exam Limitations: altered mental status General appearance: obtunded Head exam: Present: atraumatic, normocephalic Eye exam: Present: normal appearance ENT exam: Present: mucous membranes dry Neck exam: Present: normal inspection. Absent: tenderness, meningismus Respiratory exam: Present: rhonchi. Absent: respiratory distress, wheezes, rales, stridor Cardiovascular Exam: Present: regular rate, normal rhythm, normal heart sounds. Absent: systolic murmur, diastolic murmur, rubs, gallop GI/Abdominal exam: Present: soft. Absent: distended, tenderness, guarding, rebound, mass exam: Present: other (Stein catheter present) Extremities exam: Present: normal inspection, normal capillary refill. Absent: pedal edema, calf tenderness Neurological exam: Present: altered Skin exam: Present: warm, dry, intact, normal color, other (Stage I decubitus ulcers to the lateral malleolus bilaterally). Absent: rash Course Vital Signs 06/03/19 06/03/19 06/03/19 23:13 23:30 23:32 Temperature 98.2 F 99.3 F Pulse Rate 90 88 Respiratory 20 19 Rate Blood Pressure 118/81 103/72 O2 Sat by Pulse 98 98 Oximetry 06/04/19 06/04/19 00:45 01:30 Temperature Pulse Rate 80 90 Respiratory 18 18 Rate Blood Pressure 110/74 114/70 O2 Sat by Pulse 98 98 Oximetry - Reevaluation(s) Reevaluation #1: 06/03/19 23:43 IV fluid bolus based on ideal body weight EKG Findings - EKG Results: EKG: interpreted by SILVIA CR, sinus rhythm (Rate 84 bpm), normal axis, normal QRS, normal ST/T, no acute changes - SD, Pacemaker, Normal: Normal tracing: normal tracing Medical Decision Making - Lab Data Result diagrams: 06/05/19 05:51 06/05/19 05:51 Lab Results 06/03/19 06/03/19 06/03/19 Range/Units 23:28 23:28 23:28 WBC 18.5 H (3.8-10.6) k/uL RBC 4.16 L (4.30-5.90) m/uL Hgb 11.7 L (13.0-17.5) gm/dL Hct 35.8 L (39.0-53.0) % MCV 86.1 (80.0-100.0) fL MCH 28.2 (25.0-35.0) pg MCHC 32.7 (31.0-37.0) g/dL RDW 17.3 H (11.5-15.5) % Plt Count 223 (150-450) k/uL Neutrophils % 86 % Lymphocytes % 5 % Monocytes % 5 % Eosinophils % 2 % Basophils % 1 % Neutrophils # 15.9 H (1.3-7.7) k/uL Lymphocytes # 0.9 L (1.0-4.8) k/uL Monocytes # 1.0 (0-1.0) k/uL Eosinophils # 0.4 (0-0.7) k/uL Basophils # 0.2 (0-0.2) k/uL Anisocytosis Slight PT (9.0-12.0) sec INR (<1.2) APTT (22.0-30.0) sec Sodium 133 L (137-145) mmol/L Potassium 3.8 (3.5-5.1) mmol/L Chloride 96 L (98-107) mmol/L Carbon Dioxide 29 (22-30) mmol/L Anion Gap 8 mmol/L BUN 32 H (9-20) mg/dL Creatinine 1.24 (0.66-1.25) mg/dL Est GFR (CKD-EPI)AfAm 73 (>60 ml/min/1.73 sqM) Est GFR (CKD-EPI)NonAf 63 (>60 ml/min/1.73 sqM) Glucose 103 H (74-99) mg/dL Plasma Lactic Acid [place] 1.3 (0.7-2.0) mmol/L Calcium 8.5 (8.4-10.2) mg/dL Total Bilirubin 0.3 (0.2-1.3) mg/dL AST 23 (17-59) U/L ALT 26 (21-72) U/L Alkaline Phosphatase 97 (38-126) U/L Troponin I (0.000-0.034) ng/mL Total Protein 6.1 L (6.3-8.2) g/dL Albumin 3.1 L (3.5-5.0) g/dL Urine Color Urine Appearance (Clear) Urine pH (5.0-8.0) Ur Specific [place] (1.001-1.035) Urine Protein (Negative) Urine Glucose (UA) (Negative) Urine Ketones (Negative) Urine Blood (Negative) Urine Nitrite (Negative) Urine Bilirubin (Negative) Urine Urobilinogen (<2.0) mg/dL Ur Leukocyte Esterase (Negative) Urine RBC (0-5) /hpf Urine WBC (0-5) /hpf Urine WBC Clumps (None) /hpf Ur Squamous Epith Cells (0-4) /hpf Amorphous Sediment (None) /hpf Urine Bacteria (None) /hpf Urine Mucus (None) /hpf 06/03/19 06/03/19 06/04/19 Range/Units 23:28 23:28 00:09 WBC (3.8-10.6) k/uL RBC (4.30-5.90) m/uL Hgb (13.0-17.5) gm/dL Hct (39.0-53.0) % MCV (80.0-100.0) fL MCH (25.0-35.0) pg MCHC (31.0-37.0) g/dL RDW (11.5-15.5) % Plt Count (150-450) k/uL Neutrophils % % Lymphocytes % % Monocytes % % Eosinophils % % Basophils % % Neutrophils # (1.3-7.7) k/uL Lymphocytes # (1.0-4.8) k/uL Monocytes # (0-1.0) k/uL Eosinophils # (0-0.7) k/uL Basophils # (0-0.2) k/uL Anisocytosis PT 22.4 H (9.0-12.0) sec INR 2.3 H (<1.2) APTT 54.0 H (22.0-30.0) sec Sodium (137-145) mmol/L Potassium (3.5-5.1) mmol/L Chloride (98-107) mmol/L Carbon Dioxide (22-30) mmol/L Anion Gap mmol/L BUN (9-20) mg/dL Creatinine (0.66-1.25) mg/dL Est GFR (CKD-EPI)AfAm (>60 ml/min/1.73 sqM) Est GFR (CKD-EPI)NonAf (>60 ml/min/1.73 sqM) Glucose (74-99) mg/dL Plasma Lactic Acid [place]aurus (0.7-2.0) mmol/L Calcium (8.4-10.2) mg/dL Total Bilirubin (0.2-1.3) mg/dL AST (17-59) U/L ALT (21-72) U/L Alkaline Phosphatase (38-126) U/L Troponin I 0.037 H* (0.000-0.034) ng/mL Total Protein (6.3-8.2) g/dL Albumin (3.5-5.0) g/dL Urine Color Yellow Urine Appearance Turbid (Clear) Urine pH 5.5 (5.0-8.0) Ur Specific [place] 1.018 (1.001-1.035) Urine Protein 2+ H (Negative) Urine Glucose (UA) Negative (Negative) Urine Ketones Negative (Negative) Urine Blood Moderate H (Negative) Urine Nitrite Negative (Negative) Urine Bilirubin Negative (Negative) Urine Urobilinogen <2.0 (<2.0) mg/dL Ur Leukocyte Esterase Large H (Negative) Urine RBC 118 H (0-5) /hpf Urine WBC >182 H (0-5) /hpf Urine WBC Clumps Many H (None) /hpf Ur Squamous Epith Cells 6 H (0-4) /hpf Amorphous Sediment Few H (None) /hpf Urine Bacteria Few H (None) /hpf Urine Mucus Rare H (None) /hpf Disposition Clinical Impression: UTI (urinary tract infection), Altered mental status, Sepsis, ESBL (extended spectrum beta-lactamase) producing bacteria infection, Multiple sclerosis, primary progressive Disposition: ADMITTED IP TO THIS HOSP Condition: Poor Is patient prescribed a controlled substance at d/c from ED?: No
[2019-06-03] MEDS: SODIUM CHLORIDE 0.9% 500 ML 500 ML IV SCH (23:56)
[2019-06-04] LABS: Anisocytosis Slight; Basophils # (A) 0.2 k/uL (0-0.2); Basophils % (A) 1 %; Eosinophils # (A) 0.4 k/uL (0-0.7); Eosinophils % (A) 2 %; HCT 35.8 % (39.0-53.0); HGB 11.7 gm/dL (13.0-17.5); Lymphocytes # (A) 0.9 k/uL (1.0-4.8); Lymphocytes % (A) 5 %; MCH 28.2 pg (25.0-35.0); MCHC 32.7 g/dL (31.0-37.0); MCV 86.1 fL (80.0-100.0); Mean Platelet Volume 9.1; Monocytes % (A) 5 %; Neutrophils # (A) 15.9 k/uL (1.3-7.7); Neutrophils % (A) 86 %; Platelet Count 223 k/uL (150-450); RBC 4.16 m/uL (4.30-5.90); RDW 17.3 % (11.5-15.5); WBC 18.5 k/uL (3.8-10.6)
[2019-06-04 00:14] LABS: Albumin 3.1 g/dL (3.5-5.0); Calcium 8.5 mg/dL (8.4-10.2); Potassium 3.8 mmol/L (3.5-5.1); Total Bilirubin 0.3 mg/dL (0.2-1.3); Total Protein 6.1 g/dL (6.3-8.2)
[2019-06-04] MEDS: SODIUM CHLORIDE 0.9% 500 ML 500 ML IV SCH ×3 (00:15→01:15)
[2019-06-04 00:17] LABS: INR 2.3 (<1.2); Prothrombin Time 22.4 sec (9.0-12.0)
--- NOTE | 2019-06-04 00:26 | XR ---
History: ITS.REASON XR Reason: Fever Exam: XR CXR 1 VIEW Comparison: 11/11/2018 FINDINGS: Ill-defined patchy opacity at the left base may represent developing infiltrate. Bandlike opacity at the right mid to lower lung is again noted. The right lung otherwise appears clear. Cardiac silhouette appears upper limits for technique. IMPRESSION: Ill-defined patchy opacity at the left base may represent developing infiltrate. Bandlike opacity at the right mid to lower lung is again noted. The right lung otherwise appears clear. Cardiac silhouette appears upper limits for technique.
[2019-06-04 00:43] LABS: Amorphous Sediment,Urine Few /hpf; Appearance,Urine Turbid (Clear); Bacteria,Urine Few /hpf; Bilirubin,Urine Negative (Negative); Blood,Urine Moderate (Negative); Color,Urine Yellow; Glucose,Urine (UA) Negative (Negative); Ketones,Urine Negative (Negative); Leukocyte Esterase,Urine Large (Negative); Mucus,Urine Rare /hpf; Nitrite,Urine Negative (Negative); PH, Urine 5.5 (5.0-8.0); Protein,Urine 2+ (Negative); RBC,Urine 118 /hpf (0-5); Specific Gravity,Urine 1.018 (1.001-1.035); Squamous Epithelial Cell,Urine 6 /hpf (0-4); Urobilinogen,Urine <2.0 mg/dL (<2.0); WBC,Urine >182 /hpf (0-5)
[2019-06-04] MEDS ORDERED: CEFEPIME 2 GM in SODIUM CHLORIDE 0.9% 100 ML IVPB ONE (01:15)
[2019-06-04] MEDS: SODIUM CHLORIDE 0.9% 1,000 ML IV SCH ×3 (01:54→12:49)
[2019-06-04] MEDS ORDERED: FUROSEMIDE 10 MG/ML 4 ML VIAL IV STA (02:45)
[2019-06-04 02:49] LABS: Glucose,Whole Blood 87 mg/dL (75-99)
--- NOTE | 2019-06-04 03:04 | XR ---
EXAM: XR Chest, 1 View CLINICAL HISTORY: ITS.REASON XR Reason: Fluid overload TECHNIQUE: Frontal view of the chest. COMPARISON: 06/03/19 IMPRESSION: Unchanged heart size. Redemonstration of left lower lobe increased opacity, possibly edema or infection. No pleural effusion.
[2019-06-04] MEDS ORDERED: HEPARIN SODIUM,PORCINE 5,000 UNIT/ML 1 ML VIAL SQ SCH (08:00)
--- NOTE | 2019-06-04 08:47 | P.CRDCN ---
History of Present Illness Consult date: 06/04/19 Requesting physician: Avila E Shu Reason for Consult (text): Abnormal troponin Chief complaint: Mental status change History of present illness: This is a 59-year-old gentleman with history of MS, the history was obtained from the medical record as the patient is nonverbal. He appeared resides at a shelter, he was noted there to be less responsive than his usual. He is currently being treated for a urinary tract infection, he was found to be hypotensive and bradycardic at the shelter. He is currently being treated for ESBL in the urine. Patient does have history of DVT, hypertension, GERD. Cardiology consultation was requested. Abnormal troponin. Chest x-ray shows ill-defined patchy obesity at the left base which may represent a developing infiltrate. EKG shows normal sinus rhythm with no acute changes. Blood pressure 108/60 with a heart rate in the 80s, 96% on 2 L of oxygen, temperature 99.0. White blood cell count 18.5, hemoglobin 11.7, platelet count 223. INR 2.3, sodium 133, potassium 3.8, BUN 32 and creatinine 1.2. Lactic acid 1.3. Troponin 0.037. BNP 835. At the time of my examination this morning, patient is nonverbal, he appears to be comfortable lying in bed. Past Medical History Past Medical History: Deep Vein Thrombosis (DVT), GERD/Reflux, Hypertension, Musculoskeletal Disorder, Pneumonia, Renal Disease Additional Past Medical History / Comment(s): MS, cognitive impariment/ non verbal, NPO-peg tube,DVT-arm , IDC ,INCONT OF BOWEL. DYSARTHRIA/ANARTHRIA/DYSPH AGIA. BEDBOUND, RACHEL LIFT TO W/C, neurogenic bladder,m History of Any Multi-Drug Resistant Organisms: MRSA Date of last positivie culture/infection: ESBL 11/09/18 MRSA 10/21/17 MDRO Source:: URINE Additional Past Surgical History / Comment(s): PEG TUBE, HX OF GASTROSTOMY, PICC LINE Past Anesthesia/Blood Transfusion Reactions: Unable to Obtain Past Psychological History: Depression Additional Psychological History / Comment(s): PT RESIDES AT [place] [phone] Smoking Status: Never smoker Past Alcohol Use History: None Reported Past Drug Use History: None Reported - Past Family History Father Family Medical History: Unable to Obtain Additional Family Medical History / Comment(s): patient is nonverbal Mother Family Medical History: Unable to Obtain Additional Family Medical History / Comment(s): patient is nonverbal Medications and Allergies Home Medications Medication Instructions Recorded Confirmed Type Amantadine 50mg/5ml 100 mg PEG/G-TUBE Q12H 12/28/17 06/03/19 History Ascorbic Acid [Vitamin C] 250 mg PEG/G-TUBE DAILY 12/28/17 06/03/19 History Cholecalciferol [Vitamin D3 (25 1,000 unit PEG/G-TUBE DAILY 12/28/17 06/03/19 Hi story Mcg = 1000 Iu)] Docusate Oral Soln [Colace Oral 200 mg PEG/G-TUBE BID 12/28/17 06/03/19 History Soln] Scopolamine 1.5MG/72Hr Patch 1 patch TRANSDERM Q72H 12/28/17 06/03/19 History [TransDerm Scop] guaiFENesin [guaiFENesin Oral 200 mg PEG/G-TUBE Q6H PRN 12/28/17 06/03/19 Hi story Solution] Baclofen 5 mg PEG/G-TUBE TID 04/07/18 06/03/19 History Furosemide [Lasix] 20 mg PEG/G-TUBE DAILY 05/24/18 06/03/19 History Oxybutynin Chloride [Ditropan] 5 mg PEG/G-TUBE TID #90 tab 07/29/18 06/03/19 Rx Pregabalin [Lyrica] 150 mg PEG/G-TUBE Q12H 11/28/18 06/03/19 History Acetaminophen Oral Susp [Tylenol 320 mg PEG/G-TUBE Q6H PRN 01/26/19 06/03/19 History Oral Susp] DULoxetine HCL [Cymbalta] 60 mg PEG/G-TUBE HS 01/26/19 06/03/19 History Metoprolol Tartrate 25 mg PEG/G-TUBE BID 01/26/19 06/03/19 History Omeprazole Magnesium [PriLOSEC 20 mg PEG/G-TUBE DAILY 01/26/19 06/03/19 History Oral Susp] Warfarin [Coumadin] 0.5 mg PEG/G-TUBE MOWEFR 04/15/19 06/03/19 History Warfarin [Coumadin] 5 mg PEG/G-TUBE DAILY 04/15/19 06/03/19 History carBAMazepine [carBAMazepine Oral 300 mg PEG/G-TUBE Q8H 04/15/19 06/03/19 History Susp] Cranberry Fruit Extract [Cranberry] 500 mg PEG/G-TUBE Q12H 06/03/19 06/03/19 History cefTRIAXone [Rocephin] 1 gm IVPB ONCE 06/03/19 06/03/19 History Allergies Allergy/AdvReac Type Severity Reaction Status Date / Time meropenem [From Merrem] Allergy Rash/Hives Verified 06/03/19 23:14 Physical Exam Vitals: Vital Signs Temp Pulse Pulse Resp BP BP Pulse Ox 06/04/19 08:12 20 06/04/19 03:07 99.0 F 89 20 108/59 96 06/04/19 03:05 121/70 06/04/19 02:49 96 06/04/19 02:04 98.5 F 89 18 105/55 95 06/04/19 02:00 98.2 F 06/04/19 01:30 90 18 114/70 98 06/04/19 00:45 80 18 110/74 98 06/03/19 23:32 99.3 F 06/03/19 23:30 88 19 103/72 98 06/03/19 23:13 98.2 F 90 20 118/81 98 Intake and Output 06/03/19 06/04/19 06/04/19 22:59 06:59 14:59 Intake Total 0 Output Total 1125 500 Balance -1125 -500 Intake: Oral 0 Output: Urine 1125 500 Other: Voiding Method Indwelling Catheter Indwelling Catheter Weight 73.5 kg PHYSICAL EXAMINATION: GENERAL: 59-year-old gentleman in no acute distress at the time of my examination HEENT: Head is atraumatic, normocephalic. Pupils equal, round. Sclera anicteric. Conjunctiva are clear. Mucous membranes of the mouth are moist. Neck is supple. There is no elevated jugular venous pressure. No carotid bruit is heard. HEART EXAMINATION: Heart S1, S2 normal. No murmur or gallop heard. CHEST EXAMINATION: Lungs reveal scattered rhonchi throughout. ABDOMEN: Soft, nontender. Bowel sounds are heard. No organomegaly noted. EXTREMITIES: 2+ peripheral pulses with trace evidence of peripheral edema ,mildly contracted . NEUROLOGIC [patient is awake, eyes are open, nonverbal. Results 06/03/19 23:28 06/03/19 23:28 Cardiac Enzymes 06/03/19 06/03/19 Range/Units 23:28 23:28 AST 23 (17-59) U/L Troponin I 0.037 H* (0.000-0.034) ng/mL Coagulation 06/03/19 Range/Units 23:28 PT 22.4 H (9.0-12.0) sec APTT 54.0 H (22.0-30.0) sec CBC 06/03/19 Range/Units 23:28 WBC 18.5 H (3.8-10.6) k/uL RBC 4.16 L (4.30-5.90) m/uL Hgb 11.7 L (13.0-17.5) gm/dL Hct 35.8 L (39.0-53.0) % Plt Count 223 (150-450) k/uL Comprehensive Metabolic Panel 06/03/19 Range/Units 23:28 Sodium 133 L (137-145) mmol/L Potassium 3.8 (3.5-5.1) mmol/L Chloride 96 L (98-107) mmol/L Carbon Dioxide 29 (22-30) mmol/L BUN 32 H (9-20) mg/dL Creatinine 1.24 (0.66-1.25) mg/dL Glucose 103 H (74-99) mg/dL Calcium 8.5 (8.4-10.2) mg/dL AST 23 (17-59) U/L ALT 26 (21-72) U/L Alkaline Phosphatase 97 (38-126) U/L Total Protein 6.1 L (6.3-8.2) g/dL Albumin 3.1 L (3.5-5.0) g/dL Current Medications Generic Name Dose Route Start Last Admin Trade Name Freq PRN Reason Stop Dose Admin Acetaminophen 320 mg 06/04/19 06:00 Tylenol Oral Susp PEG/G-TUBE Q6H PRN Fever and/ or Pain Baclofen 5 mg 06/04/19 09:00 Lioresal PEG/G-TUBE TID LUPE Carbamazepine 300 mg 06/04/19 08:00 Tegretol Chew PEG/G-TUBE Q8HR LUPE Docusate Sodium 200 mg 06/04/19 09:00 Colace Oral Soln PEG/G-TUBE BID LUPE Famotidine 20 mg 06/04/19 09:00 Pepcid IV BID LUPE Sodium Chloride 1,000 mls @ 150 mls/hr 06/04/19 01:15 06/04/19 03:28 Saline 0.9% IV Not Given .Q6H40M LUPE Metoprolol Tartrate 25 mg 06/04/19 09:00 Lopressor PEG/G-TUBE BID LUPE Oxybutynin Chloride 5 mg 06/04/19 09:00 Ditropan PEG/G-TUBE TID LUPE Pantoprazole Sodium 40 mg 06/04/19 09:00 Protonix PEG/G-TUBE DAILY LUPE Pregabalin 150 mg 06/04/19 09:00 Lyrica PEG/G-TUBE Q12H LUPE Scopolamine 1 patch 06/04/19 09:00 Transderm-Scop 1.5mg/72hr Patch TRANSDERM Q72H LUPE Warfarin Sodium 5 mg 06/04/19 18:00 Coumadin PEG/G-TUBE DAILY@1800 LUPE Warfarin Sodium 0.5 mg 06/04/19 18:00 Coumadin PEG/G-TUBE MoWeFr@1800 LUPE Intake and Output 06/03/19 06/04/19 06/04/19 22:59 06:59 14:59 Intake Total 0 Output Total 1125 500 Balance -1125 -500 Intake: Oral 0 Output: Urine 1125 500 Other: Voiding Method Indwelling Catheter Indwelling Catheter Weight 73.5 kg 06/03/19 23:28 06/03/19 23:28 EKG Interpretations (text) EKG shows normal sinus rhythm with no acute changes. Assessment and Plan Plan: Assessment and plan #1 mental status changes, evidence of a UTI with ESBL in the urine, on antibiotics. Elevated white blood cell count, fever. #2 abnormality in troponin could be secondary to infection #3 possible pneumonia with evidence of infiltrate on chest x-ray #4 history of DVT #5 MS #6 hypertension #7 depression Plan We will obtain 2 subsequent troponins, obtain echocardiogram with Doppler study. We will maximize the patient's medical therapy. Further recommendations to follow. DNP note has been reviewed, I agree with a documented findings and plan of care. Patient was seen and examined.
[2019-06-04] MEDS ORDERED: PREGABALIN 75 MG CAP PEG/G-TUBE SCH (09:00)
[2019-06-04] MEDS ORDERED: FAMOTIDINE 20 MG/2 ML VIAL IV SCH (09:00)
[2019-06-04] MEDS: OXYBUTYNIN CHLORIDE 5 MG TAB PEG/G-TUBE SCH ×3 (09:34→17:52)
[2019-06-04] MEDS: ASPIRIN 81 MG PO SCH (09:34)
[2019-06-04] MEDS: BACLOFEN 10 MG TAB PEG/G-TUBE SCH ×4 (09:35→22:13)
[2019-06-04] MEDS: PANTOPRAZOLE SODIUM 40 MG GRANULE PKT PEG/G-TUBE SCH (09:36)
[2019-06-04] MEDS: METOPROLOL TARTRATE 25 MG TAB PEG/G-TUBE SCH ×2 (09:36→22:12)
[2019-06-04] MEDS: SCOPOLAMINE 1.5MG/72HR PATCH TRANSDERM SCH (09:36)
[2019-06-04] MEDS: DOCUSATE ORAL SOLN 100 MG/10 ML CUP PEG/G-TUBE SCH ×2 (09:36→22:11)
[2019-06-04 09:48] LABS: INR 2.2 (<1.2); Prothrombin Time 21.1 sec (9.0-12.0)
[2019-06-04] MEDS ORDERED: methylPREDNISolone SOD SUCCI 125 MG/2 ML VIAL IV PRN (11:48)
[2019-06-04] MEDS ORDERED: diphenhydrAMINE 50 MG/ML 1 ML VIAL IVP PRN (11:49)
--- NOTE | 2019-06-04 11:56 | P.HPIM ---
History of Present Illness This is a pleasant 59 years old male with past medical history of DVT, GERD, hypertension, pneumonia, multiple sclerosis with cognitive impairment and nonverbal, is status post PEG tube placement, dysarthria and dysphagia, neurogenic bladder, bowel incontinence. He was sent from skilled nursing because he was less alert and responsive, there was suspicion for urinary tract infection and he was hypotensive. Patient is nonverbal at baseline. Patient was given ceftriaxone and admitted to the hospital for his history of ESBL urina ry tract infection. Patient is nonverbal at baseline and he cannot provide information Currently his blood pressure 105/58, he is saturating 90% on 2 L, respiratory rate 20 and had low-grade temperature and 9.0, WBC is 18.5 K, baseline is 5.4K, hemoglobin is 11.7, platelets within normal limits, INR is 2.2, sodium 133, creatinine 1.24, glucose is controlled, lactic acid 1.3. 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 Review of Systems CONSTITUTIONAL: No fever, no malaise, no fatigue. HEENT: No recent visual problems or hearing problems. Denied any sore throat. CARDIOVASCULAR: No orthopnea, PND, no palpitations, no syncope. PULMONARY: No shortness of breath, no cough, no hemoptysis. GASTROINTESTINAL: No diarrhea, no nausea, no vomiting, no abdominal pain. Normoactive bowel sounds. NEUROLOGICAL: No headaches, no weakness, no numbness. HEMATOLOGICAL: Denies any bleeding or petechiae. GENITOURINARY: Denies any burning micturition, frequency, or urgency. MUSCULOSKELETAL/RHEUMATOLOGICAL: Denies any joint pain, swelling, or any muscle pain. ENDOCRINE: Denies any polyuria or polydipsia. Past Medical History Past Medical History: Deep Vein Thrombosis (DVT), GERD/Reflux, Hypertension, Musculoskeletal Disorder, Pneumonia, Renal Disease Additional Past Medical History / Comment(s): MS, cognitive impariment/ non verbal, NPO-peg tube,DVT-arm , IDC ,INCONT OF BOWEL. DYSARTHRIA/ANARTHRIA/DYSPHAGIA. BEDBOUND, RACHEL LIFT TO W/C, neurogenic bladder,m History of Any Multi-Drug Resistant Organisms: MRSA Date of last positivie culture/infection: ESBL 11/09/18 MRSA 10/21/17 MDRO Source:: URINE Additional Past Surgical History / Comment(s): PEG TUBE, HX OF GASTROSTOMY, PICC LINE Past Anesthesia/Blood Transfusion Reactions: Unable to Obtain Past Psychological History: Depression Additional Psychological History / Comment(s): PT RESIDES AT [place] [phone] Smoking Status: Never smoker Past Alcohol Use History: None Reported Past Drug Use History: None Reported - Past Family History Father Family Medical History: Unable to Obtain Additional Family Medical History / Comment(s): patient is nonverbal Mother Family Medical History: Unable to Obtain Additional Family Medical History / Comment(s): patient is nonverbal Medications and Allergies Home Medications Medication Instructions Recorded Confirmed Type Amantadine 50mg/5ml 100 mg PEG/G-TUBE Q12H 12/28/17 06/03/19 History RX: Ascorbic Acid [Vitamin C] 250 mg PEG/G-TUBE DAILY 12/28/17 06/03/19 History RX: Cholecalciferol [Vitamin D3 1,000 unit PEG/G-TUBE DAILY 12/28/17 06/03/19 History (25 Mcg = 1000 Iu)] RX: Docusate Oral Soln [Colace 200 mg PEG/G-TUBE BID 12/28/17 06/03/19 History Oral Soln] RX: Scopolamine 1.5MG/72Hr Patch 1 patch TRANSDERM Q72H 12/28/17 06/03/19 History [TransDerm Scop] RX: guaiFENesin [guaiFENesin Oral 200 mg PEG/G-TUBE Q6H PRN 12/28/17 06/03/19 History Solution] RX: Baclofen 5 mg PEG/G-TUBE TID 04/07/18 06/03/19 History RX: Furosemide [Lasix] 20 mg PEG/G-TUBE DAILY 05/24/18 06/03/19 History RX: Oxybutynin Chloride [Ditropan] 5 mg PEG/G-TUBE TID #90 tab 07/29/18 06/03/19 Rx Pregabalin [Lyrica] 150 mg PEG/G-TUBE Q12H 11/28/18 06/03/19 History Acetaminophen Oral Susp [Tylenol 320 mg PEG/G-TUBE Q6H PRN 01/26/19 06/03/19 History Oral Susp] DULoxetine HCL [Cymbalta] 60 mg PEG/G-TUBE HS 01/26/19 06/03/19 History Omeprazole Magnesium [PriLOSEC 20 mg PEG/G-TUBE DAILY 01/26/19 06/03/19 History Oral Susp] RX: Metoprolol Tartrate 25 mg PEG/G-TUBE BID 01/26/19 06/03/19 History Warfarin [Coumadin] 0.5 mg PEG/G-TUBE MOWEFR 04/15/19 06/03/19 History Warfarin [Coumadin] 5 mg PEG/G-TUBE DAILY 04/15/19 06/03/19 History carBAMazepine [carBAMazepine Oral 300 mg PEG/G-TUBE Q8H 04/15/19 06/03/19 History Susp] Cranberry Fruit Extract [Cranberry] 500 mg PEG/G-TUBE Q12H 06/03/19 06/03/19 History cefTRIAXone [Rocephin] 1 gm IVPB ONCE 06/03/19 06/03/19 History Allergies Allergy/AdvReac Type Severity Reaction Status Date / Time meropenem [From Merrem] Allergy Rash/Hives Verified 06/03/19 23:14 Physical Exam Vitals: Vital Signs Temp Pulse Pulse Resp BP BP Pulse Ox 06/04/19 08:12 20 06/04/19 08:00 98.0 F 96 20 105/58 90 L 06/04/19 03:07 99.0 F 89 20 108/59 96 06/04/19 03:05 121/70 06/04/19 02:49 96 06/04/19 02:04 98.5 F 89 18 105/55 95 06/04/19 02:00 98.2 F 06/04/19 01:30 90 18 114/70 98 06/04/19 00:45 80 18 110/74 98 06/03/19 23:32 99.3 F 06/03/19 23:30 88 19 103/72 98 06/03/19 23:13 98.2 F 90 20 118/81 98 Intake and Output 06/03/19 06/04/19 06/04/19 22:59 06:59 14:59 Intake Total 0 Output Total 1125 500 Balance -1125 -500 Intake: Oral 0 Output: Urine 1125 500 Other: Voiding Method Indwelling Catheter Indwelling Catheter Weight 73.5 kg 73.5 kg -GENERAL: Patient is nonverbal at baseline, and has contractures in his extremities HEENT: Pupils are round and equally reacting to light. EOMI. No scleral icterus. No conjunctival pallor. Normocephalic, atraumatic. No pharyngeal erythema. No thyromegaly. CARDIOVASCULAR: S1 and S2 present. No murmurs, rubs, or gallops. PULMONARY: Chest is clear to auscultation, no wheezing or crackles. -ABDOMEN: Soft, nontender, nondistended, normoactive bowel sounds. No palpable organomegaly. PEG tube is in place MUSCULOSKELETAL: No joint swelling or deformity. EXTREMITIES: No cyanosis, clubbing, or pedal edema. NEUROLOGICAL: Gross neurological examination did not reveal any focal deficits. SKIN: No rashes. Results CBC & Chem 7: 06/03/19 23:28 06/03/19 23:28 Labs: Abnormal Lab Results - Last 24 Hours (Table) 06/03/19 06/03/19 06/03/19 Range/Units 23:28 23:28 23:28 WBC 18.5 H (3.8-10.6) k/uL RBC 4.16 L (4.30-5.90) m/uL Hgb 11.7 L (13.0-17.5) gm/dL Hct 35.8 L (39.0-53.0) % RDW 17.3 H (11.5-15.5) % Neutrophils # 15.9 H (1.3-7.7) k/uL Lymphocytes # 0.9 L (1.0-4.8) k/uL PT 22.4 H (9.0-12.0) sec INR 2.3 H (<1.2) APTT 54.0 H (22.0-30.0) sec Sodium 133 L (137-145) mmol/L Chloride 96 L (98-107) mmol/L BUN 32 H (9-20) mg/dL Glucose 103 H (74-99) mg/dL Troponin I (0.000-0.034) ng/mL Total Protein 6.1 L (6.3-8.2) g/dL Albumin 3.1 L (3.5-5.0) g/dL Urine Protein (Negative) Urine Blood (Negative) Ur Leukocyte Esterase (Negative) Urine RBC (0-5) /hpf Urine WBC (0-5) /hpf Urine WBC Clumps (None) /hpf Ur Squamous Epith Cells (0-4) /hpf Amorphous Sediment (None) /hpf Urine Bacteria (None) /hpf Urine Mucus (None) /hpf 06/03/19 06/04/19 06/04/19 Range/Units 23:28 00:09 08:43 WBC (3.8-10.6) k/uL RBC (4.30-5.90) m/uL Hgb (13.0-17.5) gm/dL Hct (39.0-53.0) % RDW (11.5-15.5) % Neutrophils # (1.3-7.7) k/uL Lymphocytes # (1.0-4.8) k/uL PT 21.1 H (9.0-12.0) sec INR 2.2 H (<1.2) APTT (22.0-30.0) sec Sodium (137-145) mmol/L Chloride (98-107) mmol/L BUN (9-20) mg/dL Glucose (74-99) mg/dL Troponin I 0.037 H* (0.000-0.034) ng/mL Total Protein (6.3-8.2) g/dL Albumin (3.5-5.0) g/dL Urine Protein 2+ H (Negative) Urine Blood Moderate H (Negative) Ur Leukocyte Esterase Large H (Negative) Urine RBC 118 H (0-5) /hpf Urine WBC >182 H (0-5) /hpf Urine WBC Clumps Many H (None) /hpf Ur Squamous Epith Cells 6 H (0-4) /hpf Amorphous Sediment Few H (None) /hpf Urine Bacteria Few H (None) /hpf Urine Mucus Rare H (None) /hpf Assessment and Plan Assessment: Systemic inflammatory response with leukocytosis, tachycardia and tachypnea. Sepsis secondary to UTI and possible pneumonia Advanced MS Dysarthria and dysphagia, status post PEG placement patient is nonverbal at baseline History of DVT Hypertension History of pneumonia Neurogenic bladder Bowel incontinence, chronic bedbound at baseline Plan: this is a pleasant 65 old male who presents with sepsis secondary to UTI and possible pneumonia. Continue with IV fluids, continue with IV antibiotics as per ID recommendation. Cardiology consult is appreciated, they recommended to continue with medical therapy. Continue with Coumadin and follow up INR. Labs and medication were reviewed.. Continue same treatment. Continue with symptomatic treatment. Resume home medication. Monitor lytes and vitals. DVT and GI prophylaxis. Further recommendations of the clinical course of the patient DVT prophylaxis: On warfarin GI Prophylaxis: Protonix PT/OT: Pending Prognosis is guarded
[2019-06-04] MEDS ORDERED: CEFEPIME 1 GM in SODIUM CHLORIDE 0.9% 100 ML IVPB SCH (12:00)
[2019-06-04] MEDS ORDERED: CEFEPIME 1 GM in SODIUM CHLORIDE 0.9% 50 ML IVPB SCH (12:00)
[2019-06-04] MEDS: AMANTADINE HCL 100 MG/10 ML CUP PEG/G-TUBE SCH ×2 (12:48→23:58)
--- NOTE | 2019-06-04 13:01 | ECHOF ---
Referral Reason:abn trop MEASUREMENTS -------- HEIGHT: 165.1 cm WEIGHT: 73.5 kg BP: 108/59 RVIDd: 2.7 cm (< 3.3) IVSd: 1.7 cm (0.6 - 1.1) LVIDd: 3.9 cm (3.9 - 5.3) LVPWd: 1.5 cm (0.6 - 1.1) IVSs: 1.8 cm LVIDs: 2.9 cm LVPWs: 1.6 cm LAESV Index (A-L): 28.86 ml/m Ao Diam: 3.3 cm (2.0 - 3.7) AV Cusp: 2.1 cm (1.5 - 2.6) LA Diam: 3.7 cm (2.7 - 3.8) EPSS: 0.6 cm MV E Memo: 0.73 m/s MV DecT: 154 ms MV A Memo: 0.69 m/s MV E/A Ratio: 1.05 RAP: 5.00 mmHg RVSP: 31.31 mmHg MV EF SLOPE: 136.93 mm/s (70 - 150) MV EXCURSION: 1.35 cm (> 18.000) FINDINGS -------- Sinus rhythm. This was a technically difficult study with suboptimal apical views. The left ventricular size is normal. There is moderate concentric left ventricular hypertrophy. O verall left ventricular systolic function is low-normal with, an EF between 50 - 55 %. The diastoli c filling pattern is normal for the age of the patient. The right ventricle is normal in size. Left atrium is normal size by volume. The right atrium was not well visualized. Lumason used Interatrial and interventricular septum intact. The aortic valve is trileaflet and appears structurally normal. There is mild aortic valve sclerosi s without stenosis. There is no evidence of aortic regurgitation. Mild mitral regurgitation is present. Trace tricuspid regurgitation present. There is no evidence of pulmonary hypertension. The right ventricular systolic pressure, as measured by Doppler, is 31.31mmHg. There is no pulmonic regurgitation present. The aortic root size is normal. IVC not well visualized There is no pericardial effusion. CONCLUSIONS -------- 1. Sinus rhythm. 2. This was a technically difficult study with suboptimal apical views. 3. The left ventricular size is normal. 4. There is moderate concentric left ventricular hypertrophy. 5. Overall left ventricular systolic function is low-normal with, an EF between 50 - 55 %. 6. The diastolic filling pattern is normal for the age of the patient. 7. The right ventricle is normal in size. 8. Left atrium is normal size by volume. 9. The right atrium was not well visualized. 10. Lumason used 11. Interatrial and interventricular septum intact. 12. The aortic valve is trileaflet and appears structurally normal. 13. There is mild aortic valve sclerosis without stenosis. 14. There is no evidence of aortic regurgitation. 15. Mild mitral regurgitation is present. 16. Trace tricuspid regurgitation present. 17. There is no evidence of pulmonary hypertension. 18. The right ventricular systolic pressure, as measured by Doppler, is 31.31mmHg. 19. There is no pulmonic regurgitation present. 20. The aortic root size is normal. 21. IVC not well visualized 22. There is no pericardial effusion. PROJECT BUILDER: Maisha Charles RDCS
--- NOTE | 2019-06-04 15:27 | P.CONS ---
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 ER from the [facility] and the patient was noticed to be less alert and responsive than his usual state apparently the patient has been recently diagnosed with urinary tract infection at the [facility] and he received a dose of Rocephin before the patient was transferred to [facility] ER per the ER note urine culture were positive for ESBL E. coli patient was evaluated by the ER physician on arrival to the ERpatient did not have high-grade fever though he did have any record of 18.5 patient did have a positive UAwith more than 182 WBC and leukocyte esterase trace positive, patient had did have a chest x-ray we did shows evidence of left-sided bandlike atelectasis was infiltrated, patient did received a dose of cefepimein the ER he was continued on IV cefepime currently getting 1 g every 8 hours he was admitted to the hospital infectious disease was consulted for further recommendation regarding antibiotic therapy, most information has been obtained from review of the chart and the patient reported medical history patient Stein catheter has been changed in the ER per the RN used to have a wound on his sacral area which is currently healed and no open wound currently Review of Systems Positive points has been mentioned in HPI complete review could not be obtained because of his underlying mental status Past Medical History Past Medical History: Deep Vein Thrombosis (DVT), GERD/Reflux, Hypertension, Musculoskeletal Disorder, Pneumonia, Renal Disease Additional Past Medical History / Comment(s): MS, cognitive impariment/ non verbal, NPO-peg tube,DVT-arm , IDC ,INCONT OF BOWEL. DYSARTHRIA/ANARTHRIA/DYSPHAGIA. BEDBOUND, RACHEL LIFT TO W/C, neurogenic bladder,m History of Any Multi-Drug Resistant Organisms: MRSA Year Discovered:: ESBL 11/09/18 MRSA 10/21/17 MDRO Source:: URINE Additional Past Surgical History / Comment(s): PEG TUBE, HX OF GASTROSTOMY, PICC LINE Past Anesthesia/Blood Transfusion Reactions: Unable to Obtain Past Psychological History: Depression Additional Psychological History / Comment(s): PT RESIDES AT [facility] [phone] Smoking Status: Never smoker Past Alcohol Use History: None Reported Past Drug Use History: None Reported - Past Family History Father Family Medical History: Unable to Obtain Additional Family Medical History / Comment(s): patient is nonverbal Mother Family Medical History: Unable to Obtain Additional Family Medical History / Comment(s): patient is nonverbal Medications and Allergies Home Medications Medication Instructions Recorded Confirmed Type Amantadine 50mg/5ml 100 mg PEG/G-TUBE Q12H 12/28/17 06/03/19 History Ascorbic Acid [Vitamin C] 250 mg PEG/G-TUBE DAILY 12/28/17 06/03/19 History Cholecalciferol [Vitamin D3 (25 1,000 unit PEG/G-TUBE DAILY 12/28/17 06/03/19 History Mcg = 1000 Iu)] Docusate Oral Soln [Colace Oral 200 mg PEG/G-TUBE BID 12/28/17 06/03/19 History Soln] Scopolamine 1.5MG/72Hr Patch 1 patch TRANSDERM Q72H 12/28/17 06/03/19 History [TransDerm Scop] guaiFENesin [guaiFENesin Oral 200 mg PEG/G-TUBE Q6H PRN 12/28/17 06/03/19 History Solution] Baclofen 5 mg PEG/G-TUBE TID 04/07/18 06/03/19 History Furosemide [Lasix] 20 mg PEG/G-TUBE DAILY 05/24/18 06/03/19 History Oxybutynin Chloride [Ditropan] 5 mg PEG/G-TUBE TID #90 tab 07/29/18 06/03/19 Rx Pregabalin [Lyrica] 150 mg PEG/G-TUBE Q12H 11/28/18 06/03/19 History Acetaminophen Oral Susp [Tylenol 320 mg PEG/G-TUBE Q6H PRN 01/26/19 06/03/19 History Oral Susp] DULoxetine HCL [Cymbalta] 60 mg PEG/G-TUBE HS 01/26/19 06/03/19 History Metoprolol Tartrate 25 mg PEG/G-TUBE BID 01/26/19 06/03/19 History Omeprazole Magnesium [PriLOSEC 20 mg PEG/G-TUBE DAILY 01/26/19 06/03/19 History Oral Susp] Warfarin [Coumadin] 0.5 mg PEG/G-TUBE MOWEFR 04/15/19 06/03/19 History Warfarin [Coumadin] 5 mg PEG/G-TUBE DAILY 04/15/19 06/03/19 History carBAMazepine [carBAMazepine Oral 300 mg PEG/G-TUBE Q8H 04/15/19 06/03/19 History Susp] Cranberry Fruit Extract [Cranberry] 500 mg PEG/G-TUBE Q12H 06/03/19 06/03/19 History cefTRIAXone [Rocephin] 1 gm IVPB ONCE 06/03/19 06/03/19 History Allergies Allergy/AdvReac Type Severity Reaction Status Date / Time meropenem [From Merrem] Allergy Rash/Hives Verified 06/03/19 23:14 Physical Exam Vitals: Vital Signs Temp Pulse Pulse Resp BP BP Pulse Ox 06/04/19 08:12 20 06/04/19 08:00 98.0 F 96 20 105/58 90 L 06/04/19 03:07 99.0 F 89 20 108/59 96 06/04/19 03:05 121/70 06/04/19 02:49 96 06/04/19 02:04 98.5 F 89 18 105/55 95 06/04/19 02:00 98.2 F 06/04/19 01:30 90 18 114/70 98 06/04/19 00:45 80 18 110/74 98 06/03/19 23:32 99.3 F 06/03/19 23:30 88 19 103/72 98 06/03/19 23:13 98.2 F 90 20 118/81 98 Intake and Output 06/03/19 06/04/19 06/04/19 22:59 06:59 14:59 Intake Total 0 Output Total 1125 750 Balance -1125 -750 Intake: Oral 0 Output: Urine 1125 750 Other: Voiding Method Indwelling Catheter Indwelling Catheter Weight 73.5 kg 73.5 kg GENERAL DESCRIPTION: Middle-aged male lying in bed, no distress. No tachypnea or accessory muscle of respiration use. HEENT: Shows Pallor , no scleral icterus. Oral mucous membrane is dry. No pharyngeal erythema or thrush NECK: Trachea central, no thyromegaly. LUNGS: Unlabored breathing. decreased breath sound at the base. No wheeze or crackle. HEART: S1, S2, regular rate and rhythm. No loud murmur ABDOMEN: Soft, no tenderness , guarding or rigidity, no organomegaly EXTREMITIES: No edema of feet. SKIN: No rash, no masses palpable. NEUROLOGICAL: The patient is sleepy lethargic orientation could not be determined. Results CBC & Chem 7: 06/03/19 23:28 06/03/19 23:28 Labs: Abnormal Lab Results - Last 24 Hours (Table) 06/03/19 06/03/19 06/03/19 Range/Units 23:28 23:28 23:28 WBC 18.5 H (3.8-10.6) k/uL RBC 4.16 L (4.30-5.90) m/uL Hgb 11.7 L (13.0-17.5) gm/dL Hct 35.8 L (39.0-53.0) % RDW 17.3 H (11.5-15.5) % Neutrophils # 15.9 H (1.3-7.7) k/uL Lymphocytes # 0.9 L (1.0-4.8) k/uL PT 22.4 H (9.0-12.0) sec INR 2.3 H (<1.2) APTT 54.0 H (22.0-30.0) sec Sodium 133 L (137-145) mmol/L Chloride 96 L (98-107) mmol/L BUN 32 H (9-20) mg/dL Glucose 103 H (74-99) mg/dL Troponin I (0.000-0.034) ng/mL Total Protein 6.1 L (6.3-8.2) g/dL Albumin 3.1 L (3.5-5.0) g/dL Urine Protein (Negative) Urine Blood (Negative) Ur Leukocyte Esterase (Negative) Urine RBC (0-5) /hpf Urine WBC (0-5) /hpf Urine WBC Clumps (None) /hpf Ur Squamous Epith Cells (0-4) /hpf Amorphous Sediment (None) /hpf Urine Bacteria (None) /hpf Urine Mucus (None) /hpf 06/03/19 06/04/1906/04/19 Range/Units 23:28 00:09 08:43 WBC (3.8-10.6) k/uL RBC (4.30-5.90) m/uL Hgb (13.0-17.5) gm/dL Hct (39.0-53.0) % RDW (11.5-15.5) % Neutrophils # (1.3-7.7) k/uL Lymphocytes # (1.0-4.8) k/uL PT 21.1 H (9.0-12.0) sec INR 2.2 H (<1.2) APTT (22.0-30.0) sec Sodium (137-145) mmol/L Chloride (98-107) mmol/L BUN (9-20) mg/dL Glucose (74-99) mg/dL Troponin I 0.037 H* (0.000-0.034) ng/mL Total Protein (6.3-8.2) g/dL Albumin (3.5-5.0) g/dL Urine Protein 2+ H (Negative) Urine Blood Moderate H (Negative) Ur Leukocyte Esterase Large H (Negative) Urine RBC 118 H (0-5) /hpf Urine WBC >182 H (0-5) /hpf Urine WBC Clumps Many H (None) /hpf Ur Squamous Epith Cells 6 H (0-4) /hpf Amorphous Sediment Few H (None) /hpf Urine Bacteria Few H (None) /hpf Urine Mucus Rare H (None) /hpf Microbiology - Last 24 Hours (Table) 06/04/19 00:09 Urine Culture - Preliminary Urine,Catheterized Assessment and Plan Assessment: 1-patient presenting to the hospital with mental status changes this patient did have elevated white count and low-grade fever source is likely catheter associated infection, in this patient who did have a history of resistant gram- negative pathogen and apparently last urine culture done by the [facility] was positive for ESBL likely the source of this infection which has not been treated underlying pneumonia less likely but not entirely excluded 2-patient with a questionable meropenem ALLERGYhowever he has tolerated Invanz in the past without any problem this was confirmed with the pharmacist (1) UTI (urinary tract infection) due to urinary indwelling catheter Current Visit: No Status: Acute Code(s): T83.511A - I/I REACT D/T INDWELLING URETHRAL CATHETER, INIT; N39.0 - URINARY TRACT INFECTION, SITE NOT SPECIFIED SNOMED Code(s): 525441813 (2) ESBL (extended spectrum beta-lactamase) producing bacteria infection Current Visit: Yes Status: Acute Code(s): A49.9 - BACTERIAL INFECTION, UNSPECIFIED; Z16.12 - EXTENDED SPECTRUM BETA LACTAMASE (ESBL) RESISTANCE SNOMED Code(s): 889558107 Plan: 1-discontinue the cefepime 2-start the patient on Invanz 1 g daily 3-gentle IV fluid We will follow on clinical condition and cultures to further adjust medication if needed Thank you for this consultation will follow this patient with you Time with Patient: Greater than 30
[2019-06-04] MEDS: ERTAPENEM 1 GM in SODIUM CHLORIDE 0.9% 50 ML IVPB SCH (15:58)
[2019-06-04] MEDS: guaiFENesin SYRUP 100MG/5ML 200 MG/10 ML CUP PEG/G-TUBE PRN (15:59)
[2019-06-04] MEDS: WARFARIN 0.5 MG TAB PEG/G-TUBE SCH ×2 (15:59→18:35)
[2019-06-04] MEDS: WARFARIN 5 MG TAB PEG/G-TUBE SCH ×2 (16:00→18:35)
[2019-06-04 16:28] LABS: Glucose,Whole Blood 87 mg/dL (75-99)
[2019-06-04 16:50] LABS: Anisocytosis Slight; HCT 35.6 % (39.0-53.0); HGB 11.8 gm/dL (13.0-17.5); MCH 28.9 pg (25.0-35.0); MCHC 33.1 g/dL (31.0-37.0); MCV 87.4 fL (80.0-100.0); Mean Platelet Volume 8.3; Platelet Count 202 k/uL (150-450); RBC 4.07 m/uL (4.30-5.90); WBC 11.8 k/uL (3.8-10.6)
[2019-06-04 17:08] LABS: African American GFR (CKD) >90 (>60 ml/min/1.73 sqM); Anion Gap 11 mmol/L; Blood Urea Nitrogen 24 mg/dL (9-20); Calcium 8.4 mg/dL (8.4-10.2); Carbon Dioxide 24 mmol/L (22-30); Chloride 102 mmol/L (98-107); Glucose 116 mg/dL (74-99); Potassium 4.1 mmol/L (3.5-5.1); Sodium 137 mmol/L (137-145)
--- NOTE | 2019-06-04 17:34 | CT ---
EXAMINATION TYPE: CT brain wo con DATE OF EXAM: 06/04/2019 COMPARISON: 04/08/2018 HISTORY: Change in mental status CT DLP: 1142.4 mGycm Automated exposure control for dose reduction was used. FINDINGS: There is moderate diffuse atrophy. There is extensive patchy hypodensity in the periventricular white matter and more severe in the frontal lobes. There is no midline shift. There is significant right c erebellar hemisphere atrophy. This could relate to old infarct. There is no evidence of intracranial hemorrhage. Calvarium is intact. IMPRESSION: ATROPHY AND CHRONIC SMALL VESSEL ISCHEMIA. NO ACUTE INTRACRANIAL ABNORMALITY. NO CHANGE COMPARED TO .
[2019-06-04] MEDS: ACETAMINOPHEN ORAL SUSP 160 MG/5 ML CUP PEG/G-TUBE PRN (18:35)
[2019-06-04 20:12] LABS: Glucose,Whole Blood 101 mg/dL (75-99)
[2019-06-04] MEDS ORDERED: CEFEPIME 2 GM in SODIUM CHLORIDE 0.9% 50 ML IVPB SCH (21:00)
[2019-06-04] MEDS: PREGABALIN 50 MG CAP PEG/G-TUBE SCH (22:12)
--- NOTE | 2019-06-04 23:53 | P.CNNES ---
History of Present Illness Consult date: 06/04/19 Reason for Consult: Acute change in mental status Chief complaint: Acute change in mental status History of Present Illness: REFERRING PHYSICIAN: Dr. Dara Crowe HISTORY OF PRESENT ILLNESS: Thank you for allowing me to evaluate Mr. Chris Marvin is a 59 year-old man with PMHx of multiple sclerosis, cognitive impairment/nonverbal, DVT, GERD, hypertension, muscular skeletal disorder, urinary and bowel incontinence, bedbound, depression, trigeminal neuralgia, presented [facility] with unresponsiveness at [facility], consulting Neurology for acute change in mental status after patient was hospitalized. Patient is nonverball at baseline. Sister is at bedside, states that patient is able to smile to her jokes and communicate somewhat albeit nonverbally. She also states that patient has had multiple episodes of altered mental status, usually in the setting of an infection, but usually, patient wakes up with IVF and antibiotics soon after they're started. Patient has stayed altered longer than he has previously. Of note, sister states that patient was diagnosed with MS about 20 years ago, at which point patient was started on betaseron, then eventually copaxone. He did pretty well with no exacerbations until about 8 years ago. Patient had stopped taking MS meds due to its side effects about 10 years ago, and after not being on medication for 2 years, patient exacerbated significantly to the point where he was unable to walk. At the time, patient did receive IV steroids at home, and he would work part-time. Unfortunately, patient continued to refuse any disease- modifying medication as patient continued to complain about their side effects. Patient lives at a SNF, and patient sees Dr. Casey, neurologist, on a regular basis for botox injections for contractures. PAST MEDICAL HISTORY: Multiple sclerosis, cognitive impairment/nonverbal, DVT, GERD, hypertension, muscular skeletal disorder, urinary and bowel incontinence, bedbound, depression, trigeminal neuralgia PAST SURGICAL HISTORY: PEG tube, history of gastrostomy HOME MEDICATIONS: Vitamin D, Colace, vitamin C, performing every 72 hours, baclofen, furosemide, oxybutynin, Lyrica, metoprolol, duloxetine, omeprazole, warfarin, carbamazepine ALLERGIES: Meropenem SOCIAL HISTORY: Never smoker. FAMILY HISTORY: No known history of neurological condition. REVIEW OF SYSTEMS: The 14 systems are reviewed and no additional points are identified compared to the review of systems documented history and physical PHYSICAL EXAMINATION: VITAL SIGNS: Temperature 98.6, pulse rate 102, respiratory rate 18, blood pressure 153/74,O2 saturation 97% on 2 L via nasal cannula GEN.: NAD HEENT: NCAT, sclera without icterus, secretions NECK: Supple SKIN AND EXTREMITIES: Warm to touch, no edema NEURO: MENTAL STATUS: Patient not opening eyes to verbal stimuli. Patient opens eyes and grimaces to pain in all 4 extremities. CRANIAL NERVES II THROUGH XII: Pupils are equal and reactive to light symmetrically. Patient barely opens eyes to painful stimuli. Some L facial asymemtry but patient position in his bed could also be affecting it. MOTOR: Mildly increased tone. Difficulty with extending his legs bilaterall and completely extend his arms bilaterally due to increased tone, but sister states that his contractures have improved significantly since getting botox injections. Foot drop with increased tone bilaterally. SENSORY: Grimaces to pain in all 4 extremities REFLEXES: 1+ throughout. Toes are mute. COORDINATION/GAIT: Unable to examine due to patient's altered mental status. DIAGNOSTIC TESTING: LABORATORY: WBC 11.8 hemoglobin 11.8 platelets 202 sodium 137 potassium 4.1 chloride 102 bicarb 24 BUN 24 creatinine 0.86 glucose 116 troponin 0.024 carbamazepine 12.7 IMAGING: CT head without contrast 06/04/2019: Trophy and chronic small vessel ischemia area no acute intracranial abnormality. Diffuse extensive hypodensity in the periventricular white matter and more severe in the frontal lobes. MRI brain w/ and w/o contrast 05/20/2018: Allowing for differences in technique, there is no significant interval change. Extensive chrnoic infarcts, whiter matter demyelination as on prior exam could be indicative of chronic small vessels ischmeia, findigns of probable mlutiple sclerosis show no interval change accounting for differences in technique. Motion on exam. ASSESSMENT: Mr. Chris Marvin is a 59 year-old man with PMHx of multiple sclerosis, cognitive impairment/nonverbal, DVT, GERD, hypertension, muscular skeletal disorder, urinary and bowel incontinence, bedbound, depression, trigeminal neuralgia, presented to [facility] with unresponsiveness at SNF, consulting Neurology for acute change in mental status after patient was hospitalized. When I was initially contacted, patient was not opening eyes to noxious stimuli, which has since improved. Patient with diagnosis of MS, but patient has not been on any disease modifying medication since ~10 years ago. Patient was seen by neurology in 2017 for pain management, and as outpatient, patient was started on botox injections, which improved his contractures and pain per sister. Patient altered mental status appears to be in the setting of injection (blood culture positive for E.coli) along with carbamazepine level at 12.7, but not likely the major etiology since his labs largely unremarkable, i.e. sodium 137. If carbamazepine had caused hyponatremia and patient had AMS, would be more concerned about carbamazepine as etiology of patient's mental status change. RECOMMENDATIONS: 1. Management of infection by primary team. Patient currently on Ertapenem. 2. Patient has not taken any disease modifying medication for MS for >10 years. Patient with outpatient neurologist, Dr. Casey. Patient needs to follow up with Dr. Casey within 2-3 weeks of discharge as he would know this patient better and would need to discuss management. 3. Sister feels that patient would have agreed to getting treated with IV steroids if he had an acute MS exacerbation. However, patient at this time with an acute infection requiring strong antibiotics, but infection could also worse acute MS exacerbation. 4. MRI brain w/ and w/o contrast if/when patient stable 5. Neurology will continue to follow. Past Medical History Past Medical History: Deep Vein Thrombosis (DVT), GERD/Reflux, Hypertension, Musculoskeletal Disorder, Pneumonia, Renal Disease Additional Past Medical History / Comment(s): MS, cognitive impariment/ non verbal, NPO-peg tube,DVT-arm , IDC ,INCONT OF BOWEL. DYSARTHRIA/ANARTHRIA/DYSPHAGIA. BEDBOUND, RACHEL LIFT TO W/C, neurogenic bladder,m History of Any Multi-Drug Resistant Organisms: MRSA Date of last positivie culture/infection: ESBL 11/09/18 MRSA 10/21/17 MDRO Source:: URINE Additional Past Surgical History / Comment(s): PEG TUBE, HX OF GASTROSTOMY, PICC LINE Past Anesthesia/Blood Transfusion Reactions: Unable to Obtain Past Psychological History: Depression Additional Psychological History / Comment(s): PT RESIDES AT [place] [phone] Smoking Status: Never smoker Past Alcohol Use History: None Reported Past Drug Use History: None Reported - Past Family History Father Family Medical History: Unable to Obtain Additional Family Medical History / Comment(s): patient is nonverbal Mother Family Medical History: Unable to Obtain Additional Family Medical History / Comment(s): patient is nonverbal Medications and Allergies Home Medications Medication Instructions Recorded Confirmed Type Amantadine 50mg/5ml 100 mg PEG/G-TUBE Q12H 12/28/17 06/03/19 History Ascorbic Acid [Vitamin C] 250 mg PEG/G-TUBE DAILY 12/28/17 06/03/19 History Cholecalciferol [Vitamin D3 (25 1,000 unit PEG/G-TUBE DAILY 12/28/17 06/03/19 History Mcg = 1000 Iu)] Docusate Oral Soln [Colace Oral 200 mg PEG/G-TUBE BID 12/28/17 06/03/19 History Soln] Scopolamine 1.5MG/72Hr Patch 1 patch TRANSDERM Q72H 12/28/17 06/03/19 History [TransDerm Scop] guaiFENesin [guaiFENesin Oral 200 mg PEG/G-TUBE Q6H PRN 12/28/17 06/03/19 History Solution] Baclofen 5 mg PEG/G-TUBE TID 04/07/18 06/03/19 History Furosemide [Lasix] 20 mg PEG/G-TUBE DAILY 05/24/18 06/03/19 History Oxybutynin Chloride [Ditropan] 5 mg PEG/G-TUBE TID #90 tab 07/29/18 06/03/19 Rx Pregabalin [Lyrica] 150 mg PEG/G-TUBE Q12H 11/28/18 06/03/19 History Acetaminophen Oral Susp [Tylenol 320 mg PEG/G-TUBE Q6H PRN 01/26/19 06/03/19 History Oral Susp] DULoxetine HCL [Cymbalta] 60 mg PEG/G-TUBE HS 01/26/19 06/03/19 History Metoprolol Tartrate 25 mg PEG/G-TUBE BID 01/26/19 06/03/19 History Omeprazole Magnesium [PriLOSEC 20 mg PEG/G-TUBE DAILY 01/26/19 06/03/19 History Oral Susp] Warfarin [Coumadin] 0.5 mg PEG/G-TUBE MOWEFR 04/15/19 06/03/19 History Warfarin [Coumadin] 5 mg PEG/G-TUBE DAILY 04/15/19 06/03/19 History carBAMazepine [carBAMazepine Oral 300 mg PEG/G-TUBE Q8H 04/15/19 06/03/19 History Susp] Cranberry Fruit Extract [Cranberry] 500 mg PEG/G-TUBE Q12H 06/03/19 06/03/19 History cefTRIAXone [Rocephin] 1 gm IVPB ONCE 06/03/19 06/03/19 History Allergies Allergy/AdvReac Type Severity Reaction Status Date / Time meropenem [From Merrem] Allergy Rash/Hives Verified 06/03/19 23:14 Physical Examination - Vital Signs Vital Signs: Vital Signs Temp Pulse Pulse Resp BP BP BP 06/04/19 20:26 98.6 F 102 H 18 153/74 06/04/19 19:47 98 F 97 18 146/77 06/04/19 16:01 98.8 F 91 18 134/73 06/04/19 16:00 91 18 06/04/19 12:00 99.1 F 92 20 155/87 06/04/19 08:12 20 06/04/19 08:00 98.0 F 96 20 105/58 06/04/19 03:07 99.0 F 89 20 108/59 06/04/19 03:05 121/70 06/04/19 02:49 06/04/19 02:04 98.5 F 89 18 105/55 06/04/19 02:00 98.2 F 06/04/19 01:30 90 18 114/70 06/04/19 00:45 80 18 110/74 06/03/19 23:32 99.3 F 06/03/19 23:30 88 19 103/72 06/03/19 23:13 98.2 F 90 20 118/81 Pulse Ox 06/04/19 20:26 97 06/04/19 19:47 98 06/04/19 16:01 99 06/04/19 16:00 06/04/19 12:00 100 06/04/19 08:12 06/04/19 08:00 90 L 06/04/19 03:07 96 06/04/19 03:05 06/04/19 02:49 96 06/04/19 02:04 95 06/04/19 02:00 06/04/19 01:30 98 06/04/19 00:45 98 09/03/19 23:32 06/03/19 23:30 98 06/03/19 23:13 98 Intake and Output 06/04/19 06/04/19 06/04/19 06:59 14:59 22:59 Intake Total 0 400 Output Total 1125 1000 Balance -1125 -1000 400 Intake: Oral 0 0 Tube Feeding 400 Output: Urine 1125 1000 Other: Voiding Method Indwelling Catheter Indwelling Catheter Indwelling Catheter Weight 73.5 kg 73.5 kg Results - Laboratory Findings CBC and BMP: 06/04/19 16:35 06/04/19 16:35 Abnormal Lab Findings: Abnormal Labs 06/03/19 06/03/19 06/03/19 23:28 23:28 23:28 WBC 18.5 H RBC 4.16 L Hgb 11.7 L Hct 35.8 L RDW 17.3 H Neutrophils # 15.9 H Lymphocytes # 0.9 L PT 22.4 H INR 2.3 H APTT 54.0 H Sodium 133 L Chloride 96 L BUN 32 H Glucose 103 H POC Glucose (mg/dL) Troponin I Total Protein 6.1 L Albumin 3.1 L Urine Protein Urine Blood Ur Leukocyte Esterase Urine RBC Urine WBC Urine WBC Clumps Ur Squamous Epith Cells Amorphous Sediment Urine Bacteria Urine Mucus 06/03/19 06/04/19 06/04/19 23:28 00:09 08:43 WBC RBC Hgb Hct RDW Neutrophils # Lymphocytes # PT 21.1 H INR 2.2 H APTT Sodium Chloride BUN Glucose POC Glucose (mg/dL) Troponin I 0.037 H* Total Protein Albumin Urine Protein 2+ H Urine Blood Moderate H Ur Leukocyte Esterase Large H Urine RBC 118 H Urine WBC >182 H Urine WBC Clumps Many H Ur Squamous Epith Cells 6 H Amorphous Sediment Few H Urine Bacteria Few H Urine Mucus Rare H 06/04/19 06/04/19 06/04/19 16:35 16:35 20:10 WBC 11.8 H RBC 4.07 L Hgb 11.8 L Hct 35.6 L RDW 17.0 H Neutrophils # Lymphocytes # PT INR APTT Sodium Chloride BUN 24 H Glucose 116 H POC Glucose (mg/dL) 101 H Troponin I Total Protein Albumin Urine Protein Urine Blood Ur Leukocyte Esterase Urine RBC Urine WBC Urine WBC Clumps Ur Squamous Epith Cells Amorphous Sediment Urine Bacteria Urine Mucus
[2019-06-05 03:25] LABS: Glucose,Whole Blood 119 mg/dL (75-99)
[2019-06-05] MEDS: ACETAMINOPHEN ORAL SUSP 160 MG/5 ML CUP PEG/G-TUBE PRN ×2 (03:47→18:04)
[2019-06-05 06:16] LABS: Anisocytosis Slight; Basophils # (A) 0.1 k/uL (0-0.2); Basophils % (A) 1 %; Eosinophils # (A) 0.1 k/uL (0-0.7); Eosinophils % (A) 1 %; HCT 32.1 % (39.0-53.0); HGB 10.4 gm/dL (13.0-17.5); Lymphocytes # (A) 0.4 k/uL (1.0-4.8); Lymphocytes % (A) 6 %; MCH 27.8 pg (25.0-35.0); MCHC 32.4 g/dL (31.0-37.0); Mean Platelet Volume 8.7; Monocytes # (A) 0.4 k/uL (0-1.0); Monocytes % (A) 6 %; Neutrophils # (A) 5.8 k/uL (1.3-7.7); Neutrophils % (A) 84 %; Platelet Count 201 k/uL (150-450); RBC 3.73 m/uL (4.30-5.90); RDW 17.1 % (11.5-15.5); WBC 6.9 k/uL (3.8-10.6)
[2019-06-05 06:22] LABS: INR 2.7 (<1.2); Prothrombin Time 26.3 sec (9.0-12.0)
[2019-06-05 06:47] LABS: Carbamazepine (Tegretol) 9.6 ug/mL
[2019-06-05] MEDS: SODIUM CHLORIDE 0.9% 1,000 ML IV SCH (07:00)
[2019-06-05 07:05] LABS: African American GFR (CKD) >90 (>60 ml/min/1.73 sqM); Anion Gap 8 mmol/L; Blood Urea Nitrogen 20 mg/dL (9-20); Calcium 8.4 mg/dL (8.4-10.2); Carbon Dioxide 25 mmol/L (22-30); Chloride 105 mmol/L (98-107); Glucose 129 mg/dL (74-99); Potassium 3.5 mmol/L (3.5-5.1); Sodium 138 mmol/L (137-145)
[2019-06-05] MEDS: FUROSEMIDE 20 MG TAB PEG/G-TUBE SCH (10:08)
[2019-06-05] MEDS: METOPROLOL TARTRATE 25 MG TAB PEG/G-TUBE SCH ×2 (10:08→21:00)
[2019-06-05] MEDS: BACLOFEN 10 MG TAB PEG/G-TUBE SCH ×3 (10:08→23:14)
[2019-06-05] MEDS: CHOLECALCIFEROL 1,000 UNIT TAB PEG/G-TUBE SCH (10:08)
[2019-06-05] MEDS: AMANTADINE HCL 100 MG/10 ML CUP PEG/G-TUBE SCH (10:09)
[2019-06-05] MEDS: PANTOPRAZOLE SODIUM 40 MG GRANULE PKT PEG/G-TUBE SCH (10:09)
[2019-06-05] MEDS: DOCUSATE ORAL SOLN 100 MG/10 ML CUP PEG/G-TUBE SCH ×2 (10:09→23:14)
[2019-06-05] MEDS: PREGABALIN 50 MG CAP PEG/G-TUBE SCH ×2 (10:09→23:14)
[2019-06-05] MEDS: ASPIRIN 81 MG PO SCH (10:09)
--- NOTE | 2019-06-05 11:17 | CDI ---
Etiology of Altered mental status from infection. Metabolic encephalopathy. Documentation Clarification Form Date: 06/05/2019 10:46:01 AM From: Ayanna Pedraza RN, CCDS Admit Date: 06/04/2019 1:15:00 AM Patient Name: Chris Marvin Visit Number: [id number] Discharge Date: ATTENTION: The Clinical Documentation Specialists (CDI) and [facility] Coding Staff appreciate your assistance in clarifying documentation. Please respond to the clarification below the line at the bottom and electronically sign. The CDI & [facility] Coding staff will review the response and follow-up if needed. Please note: Queries are made part of the Legal Health Record. If you have any questions, please contact the author of this message via ITS. Dr. Delma Taylor Altered Mental Status was documented in the ED evaluation and in your consult and further clarification is needed. Per Neurology consult on 06/04/19: Altered mental status appears to be in the setting of infection (blood culture positive for E.coli) History/Risk Factors: Multiple sclerosis, cognitive impairment/nonverbal, Hypertension, Clinical Indicators: 59-year-old male who present for acute change in mental status. The patient is nonverbal at baseline but communicate nonverbally. Labs on admission: WBC 18.5, UA: Large leukocyte Esterase with Urine culture positive preliminary Group D Enterococcus, Blood culture preliminary E coli Vital signs 114/79 93 18 100.4 98 % 2/L NC Chest x-ray: patchy opacity may represent developing infiltrate CT Brain: Atrophy and chronic small vessel ischemia. No acute abnormality 06/04/19 Attn: (Dr. Ireland) Sepsis secondary to UTI and possible pneumonia Treatment: Neurological assessment per protocol Monitor CBC, Lytes, BUN, CR Invanz IV Solu-Medrol IV x1 IV Fluids In your professional opinion, please clarify the etiology of the Altered Mental Status, if known. Metabolic Encephalopathy Other condition (please specify) Unable to determine (Last Revision: December 2017) MTDD
--- NOTE | 2019-06-05 11:30 | P.PN ---
Subjective This is a pleasant 59 years old male with past medical history of DVT, GERD, hypertension, pneumonia, multiple sclerosis with cognitive impairment and nonverbal, is status post PEG tube placement, dysarthria and dysphagia, neurogenic bladder, bowel incontinence. [facility] because he was less alert and responsive, there was suspicion for urinary tract infection and he was hypotensive. Patient is nonverbal at baseline. Patient was given ceftriaxone and admitted to the hospital for his history of ESBL urinary tract infection. Patient is nonverbal at baseline and he cannot provide information Currently his blood pressure 105/58, he is saturating 90% on 2 L, respiratory rate 20 and had low-grade temperature and 9.0, WBC is 18.5 K, baseline is 5.4K, hemoglobin is 11.7, platelets within normal limits, INR is 2.2, sodium 133, creatinine 1.24, glucose is controlled, lactic acid 1.3. Patient has already been evaluated by [employer] operator who recommended to check for echo, and optimize medical therapy Patient received 1 dose of cefepime in the emergency room. 06/05/2019 Patient looks similar to yesterday, he opens eyes spontaneously, he does not follow, on. He'll was contracted and nonverbal at baseline possibly as mentioned in previous admissions. Yesterday the nurse was concerned patient is becoming unresponsive and is about to code, so Tegretol was held for yesterday since the level was supratherapeutic, some of his medications were adjusted as well and held like back pain, lower the dose of Lyrica. However neurology and critical care consult called, As patient is full code. Is running temperature today of 100.7, bursitis is improving down to normal at 6.9K, creatinine 2.7, blood culture is positive for E. coli, all urine cultures positive for enterococcus, pseudomonas and other gram-negative bacilli. CT of the brain was negative. Neurologist recommended MRI of the brain with the patient is stable. Discussed with staff Review of systems: Non-applicable Active Medications Generic Name Dose Route Start Last Admin Trade Name Freq PRN Reason Stop Dose Admin Acetaminophen 320 mg 06/04/19 06:00 06/05/19 03:47 Tylenol Oral Susp PEG/G-TUBE 320 mg Q6H PRN Administration Fever and/ or Pain Amantadine HCl 100 mg 06/04/19 12:00 06/05/19 10:09 Symmetrel PEG/G-TUBE 100 mg Q12H LUPE Administration Aspirin 81 mg 06/04/19 09:00 06/05/19 10:09 Aspirin PO 81 mg DAILY LUPE Administration Baclofen 5 mg 06/04/19 09:00 06/05/19 10:08 Lioresal PEG/G-TUBE 5 mg TID LUPE Administration Carbamazepine 300 mg 06/04/19 08:00 06/05/19 10:08 Tegretol Chew PEG/G-TUBE 300 mg Q8HR LUPE Administration Cholecalciferol 1,000 unit 06/05/19 09:00 06/05/19 10:08 Vitamin D3 (25 Mcg = 1000 Iu) PEG/G-TUBE 1,000 unit DAILY LUPE Administration Diphenhydramine HCl 25 mg 06/04/19 11:49 Benadryl IVP Q6HR PRN Allergy Symptoms Docusate Sodium 200 mg 06/04/19 09:00 06/05/19 10:09 Colace Oral Soln PEG/G-TUBE 200 mg BID LUPE Administration Furosemide 20 mg 06/05/19 09:00 06/05/19 10:08 Lasix PEG/G-TUBE 20 mg DAILY LUPE Administration Guaifenesin 200 mg 06/04/19 11:39 Robitussin PEG/G-TUBE Q6H PRN Cough Sodium Chloride 1,000 mls @ 50 mls/hr 06/04/19 12:00 06/04/19 12:49 Saline 0.9% IV 50 mls/hr .Q20H LUPE Administration Ertapenem 1 gm/ Sodium 50 mls @ 100 mls/hr 06/04/19 16:00 06/04/19 15:58 Chloride IVPB 100 mls/hr Q24H LUPE Administration Protocol Methylprednisolone Sodium Succinate 125 mg 06/04/19 11:48 Solu-Medrol IV ONCE PRN Allergic Reaction Metoprolol Tartrate 25 mg 06/04/19 09:00 06/05/19 10:08 Lopressor PEG/G-TUBE 25 mg BID LUPE Administration Pantoprazole Sodium 40 mg 06/04/19 09:00 06/05/19 10:09 Protonix PEG/G-TUBE 40 mg DAILY LUPE Administration Pregabalin 50 mg 06/04/19 21:00 06/05/19 10:09 Lyrica PEG/G-TUBE 50 mg Q12HR LUPE Administration Scopolamine 1 patch 06/04/19 09:00 06/04/19 09:36 Transderm-Scop 1.5mg/72hr Patch TRANSDERM 1 patch Q72H LUPE Administration Warfarin Sodium 5 mg 06/04/19 18:00 06/04/19 18:35 Coumadin PEG/G-TUBE 5 mg DAILY@1800 LUPE Administration Warfarin Sodium 0.5 mg 06/04/19 18:00 06/04/19 18:35 Coumadin PEG/G-TUBE 0.5 mg MoWeFr@1800 LUPE Administration Objective - Vital Signs Vital signs: Vital Signs Temp 100.7 F H 06/05/19 08:17 Pulse 91 06/05/19 09:06 Resp 17 06/05/19 09:06 BP 160/84 06/05/19 08:17 Pulse Ox 98 06/05/19 07:55 Intake & Output 06/04/19 06/05/19 06/05/19 18:59 06:59 18:59 Intake Total 200 600 200 Output Total 1000 800 Balance -800 -200 200 Weight 73.5 kg Intake: Oral 0 Tube Feeding 200 600 200 Output: Urine 1000 800 Other: Voiding Method Indwelling Catheter Indwelling Catheter Indwelling Catheter - Exam -GENERAL: Patient is nonverbal at baseline, and has contractures in his extremities HEENT: Pupils are round and equally reacting to light. EOMI. No scleral icterus. No conjunctival pallor. Normocephalic, atraumatic. No pharyngeal erythema. No thyromegaly. CARDIOVASCULAR: S1 and S2 present. No murmurs, rubs, or gallops. PULMONARY: Chest is clear to auscultation, no wheezing or crackles. -ABDOMEN: Soft, nontender, nondistended, normoactive bowel sounds. No palpable organomegaly. PEG tube is in place MUSCULOSKELETAL: No joint swelling or deformity. EXTREMITIES: No cyanosis, clubbing, or pedal edema. NEUROLOGICAL: Gross neurological examination did not reveal any focal deficits. SKIN: No rashes. - Labs CBC & Chem 7: 06/05/19 05:51 06/05/19 05:51 Labs: Abnormal Lab Results - Last 24 Hours (Table) 06/04/19 06/04/19 06/04/19 Range/Units 16:35 16:35 20:10 WBC 11.8 H (3.8-10.6) k/uL RBC 4.07 L (4.30-5.90) m/uL Hgb 11.8 L (13.0-17.5) gm/dL Hct 35.6 L (39.0-53.0) % RDW 17.0 H (11.5-15.5) % Lymphocytes # (1.0-4.8) k/uL PT (9.0-12.0) sec INR (<1.2) BUN 24 H (9-20) mg/dL Glucose 116 H (74-99) mg/dL POC Glucose (mg/dL) 101 H (75-99) mg/dL Troponin I (0.000-0.034) ng/mL 06/04/19 06/05/19 06/05/19 Range/Units 20:44 03:14 05:51 WBC (3.8-10.6) k/uL RBC (4.30-5.90) m/uL Hgb (13.0-17.5) gm/dL Hct (39.0-53.0) % RDW (11.5-15.5) % Lymphocytes # (1.0-4.8) k/uL PT 26.3 H (9.0-12.0) sec INR 2.7 H (<1.2) BUN (9-20) mg/dL Glucose (74-99) mg/dL POC Glucose (mg/dL) 119 H (75-99) mg/dL Troponin I 0.035 H* (0.000-0.034) ng/mL 06/05/19 06/05/19 Range/Units 05:51 05:51 WBC (3.8-10.6) k/uL RBC 3.73 L (4.30-5.90) m/uL Hgb 10.4 L (13.0-17.5) gm/dL Hct 32.1 L (39.0-53.0) % RDW 17.1 H (11.5-15.5) % Lymphocytes # 0.4 L (1.0-4.8) k/uL PT (9.0-12.0) sec INR (<1.2) BUN (9-20) mg/dL Glucose 129 H (74-99) mg/dL POC Glucose (mg/dL) (75-99) mg/dL Troponin I (0.000-0.034) ng/mL Microbiology - Last 24 Hours (Table) 06/04/19 00:09 Urine Culture - Preliminary Urine,Catheterized Group D Enterococcus Pseudomonas spec Gram Neg Bacilli 06/04/19 01:25 Blood Culture Gram Stain - Preliminary Blood Blood Culture - Preliminary Escherichia coli 06/04/19 01:25 Blood Culture - Final Blood Assessment and Plan Assessment: Systemic inflammatory response with leukocytosis, tachycardia and tachypnea. blood septicemia and Sepsis secondary to UTI and possible pneumonia Advanced MS Dysarthria and dysphagia, status post PEG placement patient is nonverbal at baseline Period of unresponsiveness, neurologist evaluated the patient and recommended MRI of the brain History of DVT Hypertension History of pneumonia Neurogenic bladder Bowel incontinence, chronic bedbound at baseline Plan: this is a pleasant 65 old male who presents with sepsis secondary to UTI and possible pneumonia. Continue with IV fluids, continue with IV antibiotics as per ID recommendation. Currently he is on ertapenem. Cardiology consult is appreciated, they recommended to continue with medical therapy. Continue with Coumadin and follow up INR. Neurology consult for periods of unresponsiveness and recommended MRI of the pain when patient is stable. External care team were consulted. Labs and medication were reviewed.. Continue same treatment. Continue with symptomatic treatment. Resume home medication. Monitor lytes and vitals. DVT and GI prophylaxis. Further recommendations of the clinical course of the patient DVT prophylaxis: On warfarin GI Prophylaxis: Protonix Prognosis is guarded
--- NOTE | 2019-06-05 11:40 | CDI ---
Documentation Clarification Form Date: 06/05/2019 11:21:11 AM From: Ayanna Pedraza RN, CCDS Admit Date: 06/04/2019 1:15:00 AM Patient Name: Chris Marvin Visit Number: [id number] Discharge Date: ATTENTION: The Clinical Documentation Specialists (CDI) and [facility] Coding Staff appreciate your assistance in clarifying documentation. Please respond to the clarification below the line at the bottom and electronically sign. The CDI & [facility] Coding staff will review the response and follow-up if needed. Please note: Queries are made part of the Legal Health Record. If you have any questions, please contact the author of this message via ITS. Dr. Gramajo Sheet UTI was documented in your H/P and further clarification is needed ED assessment had Stein catheter present on admission History/Risk Factors: MS, Chronic bed bound, Urinary retention requiring chronic indwelling Stein catheter. Clinical Indicators: 59-year-old male per ID consult has chronic indwelling Stein catheter and presented to [facility] with urine culture positive for ESBL E. coli. Vital Signs: 155/87 92 20 99.1, WBC:18.5 Urinalysis: positive with more than 182 WBC and leukocyte esterase positive. ID (Dr. Farah) Mental status change, source UTI due to urinary indwelling catheter. Treatment Antibiotics: IV Rocephin, IV Invanz, Monitor Labs: CBC IV Fluids Please document the condition that these clinical indicators signify, whether Present on Admission, and cause if known: UTI with sepsis due to indwelling Stein catheter present on admission Other (specify) Unable to determine (Last Revision: July 2017) Unable to determine MTDD
[2019-06-05 11:56] LABS: Glucose,Whole Blood 161 mg/dL (75-99)
--- NOTE | 2019-06-05 15:27 | P.CNPUL ---
History of Present Illness Consult date: 06/05/19 Reason for consult: pneumonia History of present illness: 59-year-old male patient with known history of severe MS and the patient has been essentially bedridden and nonverbal with a chronic indwelling Stein catheter with previous history of recurrent UTIs including infections with gram- negative bacteria such as Pseudomonas. The patient is a shelter resident. He has also had previous infections with ESBL producing E. coli in the urine. The patient came in yesterday because of interval worsening in mental status, fever, leukocytosis, suspected recurrent urine checked infection and I was asked to evaluate this patient for possible pneumonia. He is currently on room air. His resting comfortably. His enteral feeding for nutritional support. He does not communicate. He does not look to be tachypneic. He has a decent cough and he has a congested cough. It seems that he has some upper airway secretions. Chest x-ray shows some limited atelectatic changes in lung bases bilaterally. No reported aspiration. He is currently on IV Invanz eating an ESBL producing E. coli. Upon inspection, the patient seems to be quite emaciated and cachectic. He has multiple contractures in lower extremities related to MS. As stated, is nonverbal. He grimaces to painful stimulation. Review of Systems Unable to the 14 point review of system secondary to above-mentioned comorbidities. Nevertheless, the patient has significant cognitive impairment, he is nonverbal, he has incontinence to urine and stool, he has had previous urinary tract infections, he is bedbound, he received enteral feeding for nutr itional support. He is unresponsive to any verbal stimulation. No reported aspiration. No falls. No head trauma. Past Medical History Past Medical History: Deep Vein Thrombosis (DVT), GERD/Reflux, Hypertension, Musculoskeletal Disorder, Pneumonia, Renal Disease Additional Past Medical History / Comment(s): MS, cognitive impariment/ non verbal, NPO-peg tube,DVT-arm , IDC ,INCONT OF BOWEL. DYSARTHRIA/ANARTHRIA/DYSPHAGIA. BEDBOUND, RACHEL LIFT TO W/C, neurogenic bladder,m History of Any Multi-Drug Resistant Organisms: MRSA Date of last positivie culture/infection: ESBL 11/09/18 MRSA 10/21/17 MDRO Source:: URINE Additional Past Surgical History / Comment(s): PEG TUBE, HX OF GASTROSTOMY, PICC LINE Past Anesthesia/Blood Transfusion Reactions: Unable to Obtain Past Psychological History: Depression Additional Psychological History / Comment(s): PT RESIDES AT [facility] [phone] Smoking Status: Never smoker Past Alcohol Use History: None Reported Past Drug Use History: None Reported - Past Family History Father Family Medical History: Unable to Obtain Additional Family Medical History / Comment(s): patient is nonverbal Mother Family Medical History: Unable to Obtain Additional Family Medical History / Comment(s): patient is nonverbal Medications and Allergies Home Medications Medication Instructions Recorded Confirmed Type Amantadine 50mg/5ml 100 mg PEG/G-TUBE Q12H 12/28/17 06/03/19 History Ascorbic Acid [Vitamin C] 250 mg PEG/G-TUBE DAILY 12/28/17 06/03/19 History Cholecalciferol [Vitamin D3 (25 1,000 unit PEG/G-TUBE DAILY 12/28/17 06/03/19 History Mcg = 1000 Iu)] Docusate Oral Soln [Colace Oral 200 mg PEG/G-TUBE BID 12/28/17 06/03/19 History Soln] Scopolamine 1.5MG/72Hr Patch 1 patch TRANSDERM Q72H 12/28/17 06/03/19 History [TransDerm Scop] guaiFENesin [guaiFENesin Oral 200 mg PEG/G-TUBE Q6H PRN 12/28/17 06/03/19 History Solution] Baclofen 5 mg PEG/G-TUBE TID 04/07/18 06/03/19 History Furosemide [Lasix] 20 mg PEG/G-TUBE DAILY 05/24/18 06/03/19 History Oxybutynin Chloride [Ditropan] 5 mg PEG/G-TUBE TID #90 tab 07/29/18 06/03/19 Rx Pregabalin [Lyrica] 150 mg PEG/G-TUBE Q12H 11/28/18 06/03/19 History Acetaminophen Oral Susp [Tylenol 320 mg PEG/G-TUBE Q6H PRN 01/26/19 06/03/19 History Oral Susp] DULoxetine HCL [Cymbalta] 60 mg PEG/G-TUBE HS 01/26/19 06/03/19 History Metoprolol Tartrate 25 mg PEG/G-TUBE BID 01/26/19 06/03/19 History Omeprazole Magnesium [PriLOSEC 20 mg PEG/G-TUBE DAILY 01/26/19 06/03/19 History Oral Susp] Warfarin [Coumadin] 0.5 mg PEG/G-TUBE MOWEFR 04/15/19 06/03/19 History Warfarin [Coumadin] 5 mg PEG/G-TUBE DAILY 04/15/19 06/03/19 History carBAMazepine [carBAMazepine Oral 300 mg PEG/G-TUBE Q8H 04/15/19 06/03/19 History Susp] Cranberry Fruit Extract [Cranberry] 500 mg PEG/G-TUBE Q12H 06/03/19 06/03/19 History cefTRIAXone [Rocephin] 1 gm IVPB ONCE 06/03/19 06/03/19 History Allergies Allergy/AdvReac Type Severity Reaction Status Date / Time meropenem [From Merrem] Allergy Rash/Hives Verified 06/03/19 23:14 Physical Exam Vitals: Vital Signs Temp Pulse Resp BP Pulse Ox 06/05/19 12:00 99.6 F 82 16 117/73 06/05/19 09:06 91 17 06/05/19 08:17 100.7 F H 96 16 160/84 06/05/19 07:55 100.7 F H 95 18 160/84 98 06/05/19 03:30 100.4 F H 93 18 144/79 98 06/05/19 00:28 98.9 F 87 18 137/76 97 06/04/19 20:26 98.6 F 102 H 18 153/74 97 06/04/19 19:47 98 F 97 18 146/77 98 06/04/19 16:01 98.8 F 91 18 134/73 99 06/04/19 16:00 91 18 Intake and Output 06/05/19 06/05/19 06/05/19 06:59 14:59 22:59 Intake Total 400 400 Output Total 800 Balance -400 400 Intake: Tube Feeding 400 400 Output: Urine 800 Other: Voiding Method Indwelling Catheter Indwelling Catheter Weight 73.6 kg Contracted, cachectic, not responsive to verbal stimulation, he opens his eyes spontaneously and looks around. Head exam was generally normal. There was no scleral icterus or corneal arcus. Mucous membranes were moist. Neck was supple and without jugular venous distension, thyromegaly, or carotid bruits. Carotids were easily palpable bilaterally. There was no adenopathy. Lungs sounds are clear in the lung bases bilaterally. There is some scattered rhonchi and upper airway and the patient has occasional cough and which is quite congested. No wheezes. Cardiac exam revealed the PMI to be normally situated and sized. The rhythm was regular and no extrasystoles were noted during several minutes of auscultation. The first and second heart sounds were normal and physiologic splitting of the second heart sound was noted. There were no murmurs, rubs, clicks, or gallops. Abdominal exam revealed normal bowel sounds. The abdomen was soft, non-tender, and without masses, organomegaly, or appreciable enlargement of the abdominal aorta. The patient has a PEG tube in place and the exit site is dry clean and intact. No direct tenderness or rebound tensile guarding. Extremities show contractures and muscle atrophy. No open wounds or sores. Pulses are diminished at the present. Pelvic and symmetrical. No cyanosis. No clubbing. Examination of the skin revealed no evidence of significant rashes, suspicious appearing nevi or other concerning lesions. Neurologically the patient has increased tone in the muscles of the upper and lower extremities bilaterally. Unable to assess gait. The patient is non- ambulatory. The patient has muscle rigidity in the upper extremities bilaterally and foot drops bilaterally. He grimaces to deep painful stimulation. Reflexes are +1 symmetrical. Pupils are equal and reactive to light symmetrically. No facial asymmetry at this point in time. Results - Laboratory Findings CBC and BMP: 06/05/19 05:51 06/05/19 05:51 PT/INR, D-dimer PT 26.3 sec (9.0-12.0) H 06/05/19 05:51 INR 2.7 (<1.2) H 06/05/19 05:51 Abnormal lab findings: Abnormal Labs 06/03/19 06/03/19 06/03/19 23:28 23:28 23:28 WBC 18.5 H RBC 4.16 L Hgb 11.7 L Hct 35.8 L RDW 17.3 H Neutrophils # 15.9 H Lymphocytes # 0.9 L PT 22.4 H INR 2.3 H APTT 54.0 H Sodium 133 L Chloride 96 L BUN 32 H Glucose 103 H POC Glucose (mg/dL) Troponin I Total Protein 6.1 L Albumin 3.1 L Urine Protein Urine Blood Ur Leukocyte Esterase Urine RBC Urine WBC Urine WBC Clumps Ur Squamous Epith Cells Amorphous Sediment Urine Bacteria Urine Mucus 06/03/19 06/04/19 06/04/19 23:28 00:09 08:43 WBC RBC Hgb Hct RDW Neutrophils # Lymphocytes # PT 21.1 H INR 2.2 H APTT Sodium Chloride BUN Glucose POC Glucose (mg/dL) Troponin I 0.037 H* Total Protein Albumin Urine Protein 2+ H Urine Blood Moderate H Ur Leukocyte Esterase Large H Urine RBC 118 H Urine WBC >182 H Urine WBC Clumps Many H Ur Squamous Epith Cells 6 H Amorphous Sediment Few H Urine Bacteria Few H Urine Mucus Rare H 06/04/19 06/04/19 06/04/19 16:35 16:35 20:10 WBC 11.8 H RBC 4.07 L Hgb 11.8 L Hct 35.6 L RDW 17.0 H Neutrophils # Lymphocytes # PT INR APTT Sodium Chloride BUN 24 H Glucose 116 H POC Glucose (mg/dL) 101 H Troponin I Total Protein Albumin Urine Protein Urine Blood Ur Leukocyte Esterase Urine RBC Urine WBC Urine WBC Clumps Ur Squamous Epith Cells Amorphous Sediment Urine Bacteria Urine Mucus 06/04/19 06/05/19 06/05/19 20:44 03:14 05:51 WBC RBC Hgb Hct RDW Neutrophils # Lymphocytes # PT 26.3 H INR 2.7 H APTT Sodium Chloride BUN Glucose POC Glucose (mg/dL) 119 H Troponin I 0.035 H* Total Protein Albumin Urine Protein Urine Blood Ur Leukocyte Esterase Urine RBC Urine WBC Urine WBC Clumps Ur Squamous Epith Cells Amorphous Sediment Urine Bacteria Urine Mucus 06/05/19 06/05/19 06/05/19 05:51 05:51 11:54 WBC RBC 3.73 L Hgb 10.4 L Hct 32.1 L RDW 17.1 H Neutrophils # Lymphocytes # 0.4 L PT INR APTT Sodium Chloride BUN Glucose 129 H POC Glucose (mg/dL) 161 H Troponin I Total Protein Albumin Urine Protein Urine Blood Ur Leukocyte Esterase Urine RBC Urine WBC Urine WBC Clumps Ur Squamous Epith Cells Amorphous Sediment Urine Bacteria Urine Mucus - Diagnostic Findings Chest x-ray: image reviewed Assessment and Plan Plan: 1 recurrent urine tract infection with gram-negative bacteria. The patient's been infected with pseudomonas in the past and currently he is suspected to have ESBL producing E. coli currently on IV Invanz 2 limited pulmonary atelectatic changes. Cough and mechanism is weak. No overt pneumonia. This is obviously an ongoing concern as the patient has a weak cough and mechanism and he is currently receiving enteral feeding for nutritional support and is a good set up for aspiration and even shelter associated pneumonias. Nevertheless, on today's evaluation there is no clear evidence and the patient is currently on room air 3 advanced multiple sclerosis with cognitive impairments and the patient is nonverbal and the patient has muscle atrophy, rigidity, urinary or bowel incontinence, and the patient is bedridden 4 trigeminal neuralgia 5 history of depression 6 previous history of upper extremity DVT 7 hypertension Plan Aspiration precautions. Continue enteral feeding for nutritional support. IV Invanz. Neurology evaluation. We'll continue to follow.
[2019-06-05 16:49] LABS: Glucose,Whole Blood 102 mg/dL (75-99)
[2019-06-05] MEDS: WARFARIN 5 MG TAB PEG/G-TUBE SCH (17:41)
[2019-06-05] MEDS: ERTAPENEM 1 GM in SODIUM CHLORIDE 0.9% 50 ML IVPB SCH (17:41)
--- NOTE | 2019-06-05 21:14 | PN ---
PROGRESS NOTE DATE OF SERVICE: 06/05/2019. REASON FOR FOLLOWUP VISIT: Catheter associated urinary tract infection with E coli bacteremia. General description: The patient did have a low-grade fever of 100.7 this morning, currently 99.6. The patient seems to be lethargic and unable to provide any history. No nausea, no vomiting or any diarrhea reported by the nursing staff. PHYSICAL EXAMINATION: Blood pressure is 160/86, pulse of 86, temperature of 100. He is 94% on room air. General description: He is a middle-aged male lying in bed in no distress. Respiratory system: Unlabored breathing. Coarse breath sounds in the bases bilaterally. No wheeze. Heart S1, S2. Regular rate and rhythm. Abdomen soft. No tenderness. Extremities: No edema of the feet. LABS: Hemoglobin 10.4, white count 6.9, admission white count was 18.5, BUN of 20, creatinine 0.75. Urine showing multiple pathogen. Blood culture with E coli. DIAGNOSTIC IMPRESSION AND PLAN: Patient with an E coli bacteremia, source likely urinary with urine showing multiple pathogens. Could be colonization/contamination of his Stein catheter from which urine was obtained. We will obtain another UA and cultures. Keep the patient on Invanz with a history of ESBL. Monitor his clinical course closely, adjusting antibiotic further based on the sensitivities on the E coli in the blood. MMODL / IJN: [id number] /
[2019-06-05 22:22] LABS: Glucose,Whole Blood 199 mg/dL (75-99)
[2019-06-05 23:12] LABS: Glucose,Whole Blood 139 mg/dL (75-99)
[2019-06-06] MEDS: AMANTADINE HCL 100 MG/10 ML CUP PEG/G-TUBE SCH ×2 (00:57→16:46)
[2019-06-06 05:59] LABS: Glucose,Whole Blood 160 mg/dL (75-99)
[2019-06-06 06:58] LABS: African American GFR (CKD) >90 (>60 ml/min/1.73 sqM); Anion Gap 11 mmol/L; Blood Urea Nitrogen 24 mg/dL (9-20); Calcium 8.2 mg/dL (8.4-10.2); Carbon Dioxide 25 mmol/L (22-30); Chloride 104 mmol/L (98-107); Glucose 153 mg/dL (74-99); Potassium 3.2 mmol/L (3.5-5.1); Sodium 140 mmol/L (137-145)
[2019-06-06 07:13] LABS: INR 3.4 (<1.2); Prothrombin Time 32.7 sec (9.0-12.0)
[2019-06-06 07:17] LABS: Anisocytosis Slight; Basophils # (A) 0.1 k/uL (0-0.2); Basophils % (A) 2 %; Eosinophils % (A) 1 %; HCT 24.1 % (39.0-53.0); Lymphocytes # (A) 0.5 k/uL (1.0-4.8); Lymphocytes % (A) 9 %; MCH 28.2 pg (25.0-35.0); MCHC 32.9 g/dL (31.0-37.0); MCV 85.7 fL (80.0-100.0); Mean Platelet Volume 9.3; Monocytes # (A) 0.6 k/uL (0-1.0); Monocytes % (A) 10 %; Neutrophils # (A) 4.3 k/uL (1.3-7.7); Neutrophils % (A) 75 %; Platelet Count 218 k/uL (150-450); RBC 2.81 m/uL (4.30-5.90); RDW 17.2 % (11.5-15.5); WBC 5.8 k/uL (3.8-10.6)
[2019-06-06 07:24] LABS: HGB 7.9 gm/dL (13.0-17.5)
[2019-06-06] MEDS ORDERED: Potassium Replacement Protocol 1 EACH MISC MISCELLANE PRN (07:59)
[2019-06-06] MEDS: WARFARIN 0.5 MG TAB PEG/G-TUBE SCH (08:00)
[2019-06-06] MEDS: WARFARIN 5 MG TAB PEG/G-TUBE SCH (08:00)
[2019-06-06] MEDS: PREGABALIN 50 MG CAP PEG/G-TUBE SCH ×2 (08:46→22:34)
[2019-06-06] MEDS: ACETAMINOPHEN ORAL SUSP 160 MG/5 ML CUP PEG/G-TUBE PRN (08:48)
[2019-06-06] MEDS: CHOLECALCIFEROL 1,000 UNIT TAB PEG/G-TUBE SCH (08:52)
[2019-06-06] MEDS: METOPROLOL TARTRATE 25 MG TAB PEG/G-TUBE SCH ×2 (08:52→22:34)
[2019-06-06] MEDS: FUROSEMIDE 20 MG TAB PEG/G-TUBE SCH (08:52)
[2019-06-06] MEDS: ASPIRIN 81 MG PO SCH (08:52)
[2019-06-06] MEDS: DOCUSATE ORAL SOLN 100 MG/10 ML CUP PEG/G-TUBE SCH ×2 (08:53→23:47)
[2019-06-06] MEDS: POTASSIUM BICARBONATE/CIT AC 20 MEQ TABLET.EFF NG-TUBE SCH ×2 (08:53→16:22)
[2019-06-06] MEDS: PANTOPRAZOLE SODIUM 40 MG GRANULE PKT PEG/G-TUBE SCH (08:54)
[2019-06-06] MEDS: BACLOFEN 10 MG TAB PEG/G-TUBE SCH ×3 (08:54→22:34)
[2019-06-06] MEDS: SODIUM CHLORIDE 0.9% 1,000 ML IV SCH ×2 (08:59→23:56)
[2019-06-06 10:20] LABS: Appearance,Urine Clear (Clear); Bilirubin,Urine Negative (Negative); Blood,Urine Moderate (Negative); Color,Urine Yellow; Glucose,Urine (UA) Negative (Negative); Ketones,Urine Negative (Negative); Leukocyte Esterase,Urine Small (Negative); Mucus,Urine Rare /hpf; Nitrite,Urine Negative (Negative); PH, Urine 6.5 (5.0-8.0); Protein,Urine 2+ (Negative); RBC,Urine >182 /hpf (0-5); Specific Gravity,Urine 1.013 (1.001-1.035); Urobilinogen,Urine <2.0 mg/dL (<2.0)
[2019-06-06 11:00] LABS: Anisocytosis Slight; HGB 7.2 gm/dL (13.0-17.5); MCH 28.4 pg (25.0-35.0); MCHC 32.8 g/dL (31.0-37.0); MCV 86.4 fL (80.0-100.0); Mean Platelet Volume 9.4; Platelet Count 200 k/uL (150-450); RBC 2.55 m/uL (4.30-5.90); RDW 17.1 % (11.5-15.5); WBC 6.5 k/uL (3.8-10.6)
[2019-06-06] MEDS ORDERED: OXYMETAZOLINE 0.05% NASL SPRAY 1 SPRAY BOTTLE NASAL STA (11:21)
[2019-06-06 12:41] LABS: Glucose,Whole Blood 146 mg/dL (75-99)
[2019-06-06] MEDS ORDERED: PHYTONADIONE 5 MG in SODIUM CHLORIDE 0.9% 50 ML IVPB STA (14:26)
--- NOTE | 2019-06-06 14:33 | P.PN ---
Subjective Progress Note Date: 06/06/19 59-year-old male patient with known history of severe MS and the patient has been essentially bedridden and nonverbal with a chronic indwelling Stein catheter with previous history of recurrent UTIs including infections with gram- negative bacteria such as Pseudomonas. The patient is a long term resident. He has also had previous infections with ESBL producing E. coli in the urine. The patient came in yesterday because of interval worsening in mental status, fever, leukocytosis, suspected recurrent urine checked infection and possible pneumonia. He is currently on IV Invanz eating an ESBL producing E. coli. He has multiple contractures in lower extremities related to MS. 06/06/2019 Patient is seen and evaluated in ICU at bedside; patient is transferred to ICU for uncontrolled epistaxis which has been going on for over 24 hours; patient continues to bleed with nasal packing in place; patient became hypoxic and A team was called; patient is transferred to ICU and has orders for 1 unit of packed RBCs for a hemoglobin of 7; ENT is consulted and called to evaluate patient PATY Vital signs with temperature of 98.8, pulse 103, respiration 26 and blood pressure of 118/84; SpO2 of 96% on 5 L Labs show a white blood count of 6 points 5, hemoglobin 7.2 and hematocrit of 22 with platelet at 200; patient's INR was 3.4 yesterday and Coumadin has been on hold We will continue with nasal packing and order 1 unit of fresh frozen plasma to reverse Coumadin; monitor PT/INR, CBC and electrolytes closely Objective - Vital Signs Vital signs: Vital Signs Temp 101.0 F H 06/06/19 07:49 Pulse 104 H 06/06/19 08:00 Resp 16 06/06/19 08:00 BP 130/66 06/06/19 07:49 Pulse Ox 100 06/06/19 07:49 Intake & Output 06/05/19 06/06/19 06/06/19 18:59 06:59 18:59 Intake Total 600 200 Output Total 200 Balance 600 -200 200 Weight 73.6 kg Intake: Oral 0 Tube Feeding 600 200 Output: Urine 200 Other: Voiding Method Indwelling Catheter Indwelling Catheter Indwelling Catheter # Bowel Movements 2 - Exam GENERAL: Patient is nonverbal at baseline, and has contractures in his extremities HEENT: Pupils are round and equally reacting to light. EOMI. No scleral icterus. No conjunctival pallor. Normocephalic, atraumatic. No pharyngeal erythema. No thyromegaly. CARDIOVASCULAR: S1 and S2 present. No murmurs, rubs, or gallops. PULMONARY: Chest is clear to auscultation, no wheezing or crackles. -ABDOMEN: Soft, nontender, nondistended, normoactive bowel sounds. No palpable organomegaly. PEG tube is in place MUSCULOSKELETAL: No joint swelling or deformity. EXTREMITIES: No cyanosis, clubbing, or pedal edema. NEUROLOGICAL: Gross neurological examination did not reveal any focal deficits. SKIN: No rashes. - Labs CBC & Chem 7: 06/06/19 10:42 06/06/19 06:13 Labs: Abnormal Lab Results - Last 24 Hours (Table) 06/05/19 06/05/19 06/05/19 Range/Units 11:54 16:48 22:10 RBC (4.30-5.90) m/uL Hgb (13.0-17.5) gm/dL Hct (39.0-53.0) % RDW (11.5-15.5) % Lymphocytes # (1.0-4.8) k/uL PT (9.0-12.0) sec INR (<1.2) Potassium (3.5-5.1) mmol/L BUN (9-20) mg/dL Glucose (74-99) mg/dL POC Glucose (mg/dL) 161 H 102 H 199 H (75-99) mg/dL Calcium (8.4-10.2) mg/dL Urine Protein (Negative) Urine Blood (Negative) Ur Leukocyte Esterase (Negative) Urine RBC (0-5) /hpf Urine WBC (0-5) /hpf Urine Mucus (None) /hpf 06/05/19 06/06/19 06/06/19 Range/Units 23:01 05:58 06:13 RBC (4.30-5.90) m/uL Hgb (13.0-17.5) gm/dL Hct (39.0-53.0) % RDW (11.5-15.5) % Lymphocytes # (1.0-4.8) k/uL PT 32.7 H (9.0-12.0) sec INR 3.4 H (<1.2) Potassium (3.5-5.1) mmol/L BUN (9-20) mg/dL Glucose (74-99) mg/dL POC Glucose (mg/dL) 139 H 160 H (75-99) mg/dL Calcium (8.4-10.2) mg/dL Urine Protein (Negative) Urine Blood (Negative) Ur Leukocyte Esterase (Negative) Urine RBC (0-5) /hpf Urine WBC (0-5) /hpf Urine Mucus (None) /hpf 06/06/19 06/06/19 06/06/19 Range/Units 06:13 06:13 09:52 RBC 2.81 L (4.30-5.90) m/uL Hgb 7.9 L D (13.0-17.5) gm/dL Hct 24.1 L (39.0-53.0) % RDW 17.2 H (11.5-15.5) % Lymphocytes # 0.5 L (1.0-4.8) k/uL PT (9.0-12.0) sec INR (<1.2) Potassium 3.2 L (3.5-5.1) mmol/L BUN 24 H (9-20) mg/dL Glucose 153 H (74-99) mg/dL POC Glucose (mg/dL) (75-99) mg/dL Calcium 8.2 L (8.4-10.2) mg/dL Urine Protein 2+ H (Negative) Urine Blood Moderate H (Negative) Ur Leukocyte Esterase Small H (Negative) Urine RBC >182 H (0-5) /hpf Urine WBC 7 H (0-5) /hpf Urine Mucus Rare H (None) /hpf 06/06/19 Range/Units 10:42 RBC 2.55 L (4.30-5.90) m/uL Hgb 7.2 L (13.0-17.5) gm/dL Hct 22.0 L (39.0-53.0) % RDW 17.1 H (11.5-15.5) % Lymphocytes # (1.0-4.8) k/uL PT (9.0-12.0) sec INR (<1.2) Potassium (3.5-5.1) mmol/L BUN (9-20) mg/dL Glucose (74-99) mg/dL POC Glucose (mg/dL) (75-99) mg/dL Calcium (8.4-10.2) mg/dL Urine Protein (Negative) Urine Blood (Negative) Ur Leukocyte Esterase (Negative) Urine RBC (0-5) /hpf Urine WBC (0-5) /hpf Urine Mucus (None) /hpf Microbiology - Last 24 Hours (Table) 06/04/19 00:09 Urine Culture - Preliminary Urine,Catheterized Group D Enterococcus Pseudomonas aeruginosa Gram Neg Bacilli 06/04/19 01:25 Blood Culture Gram Stain - Final Blood Blood Culture - Final Escherichia coli Assessment and Plan Assessment: Recurrent epistaxis; as above Systemic inflammatory response with leukocytosis, tachycardia and tachypnea. blood septicemia and Sepsis secondary to UTI and possible pneumonia Advanced MS Dysarthria and dysphagia, status post PEG placement patient is nonverbal at baseline Period of unresponsiveness, neurologist evaluated the patient and recommended MRI of the brain History of DVT Hypertension History of pneumonia Neurogenic bladder Bowel incontinence, chronic bedbound at baseline Plan: Continue with IV fluids, continue with IV antibiotics as per ID recommendation. Currently he is on ertapenem. Cardiology consult is appreciated, they recommended to continue with medical therapy. Continue with Coumadin and follow up INR. Neurology consult for periods of unresponsiveness and recommended MRI of the pain when patient is stable. External care team were consulted. Labs and medication were reviewed.. Continue same treatment. Continue with symptomatic treatment. Resume home medication. Monitor lytes and vitals. DVT and GI prophylaxis. Further recommendations of the clinical course of the patient DVT prophylaxis: On warfarin GI Prophylaxis: Protonix Prognosis is guarded Time with Patient: Greater than 30
--- NOTE | 2019-06-06 14:53 | P.PN ---
Subjective Progress Note Date: 06/06/19 Principal diagnosis: Acute epistaxis, anemia 59-year-old male patient with known history of severe MS and the patient has been essentially bedridden and nonverbal with a chronic indwelling Stein catheter with previous history of recurrent UTIs including infections with gram-negative bacteria such as Pseudomonas. 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 He has also had previous infections with ESBL producing E. coli in the urine. The patient came in yesterday because of interval worsening in mental status, fever, leukocytosis, suspected recurrent urine checked infection and I was asked to evaluate this patient for possible pneumonia. He is currently on room air. His resting comfortably. His enteral feeding for nutritional support. He does not communicate. He does not look to be tachypneic. He has a decent cough and he has a congested cough. It seems that he has some upper airway secretions. Chest x-ray shows some limited atelectatic changes in lung bases bilaterally. No reported aspiration. He is currently on IV Invanz eating an ESBL producing E. coli. Upon inspection, the patient seems to be quite emaciated and cachectic. He has multiple contractures in lower extremities related to MS. As stated, is nonverbal. He grimaces to painful stimulation. On 06/06/2019 patient has been transferred to the intensive care unit, apparently rapid response team was called for concern of hypotension, patient was transiently hypotensive, with a blood pressure of 79/52, developed a nosebleed, patient's hemoglobin went down from 10.4-7.9 on this morning's labs, distant epistaxis, INR today is 3.4, 1 unit of blood has been ordered. Patient is currently not intensive care unit, apparently the nosebleed had stopped initially, however it resumed, ENT service has been consulted, but has not been in to evaluate the patient yet, hemodynamically patient appears to be stable, no additional fluids were given, the patient is slightly tachycardic, current blood pressure is 118/84, patient is afebrile, currently the oxygen cannula is off, but the patient is maintaining oxygenation of 96%. We will give the patient dose of vitamin K as well, patient is on Coumadin for history of DVT, and a baby aspirin, which we will hold. No respiratory difficulty right now, head the bed is up 60 degrees. Objective - Vital Signs Vital signs: Vital Signs Temp 98.8 F 06/06/19 12:30 Pulse 102 H 06/06/19 13:30 Resp 26 H 06/06/19 13:30 BP 118/84 06/06/19 13:30 Pulse Ox 96 06/06/19 13:30 Intake & Output 06/05/19 06/06/19 06/06/19 18:59 06:59 18:59 Intake Total 600 200 Output Total 200 Balance 600 -200 200 Weight 73.6 kg Intake: Oral 0 Tube Feeding 600 200 Output: Urine 200 Other: Voiding Method Indwelling Catheter Indwelling Catheter Indwelling Catheter # Bowel Movements 2 - Exam GENERAL EXAM: Alert, pleasant, 59-year-old white male, sitting up high in bed, at least 60, oxygen off, but pulse ox is 96%, is having persistent nosebleed, comfortable in no apparent distress. Patient has chronic contractures of extremities, he is cachectic, alert, but he is nonverbal HEAD: Normocephalic/atraumatic. EYES: Normal reaction of pupils, equal size. Conjunctiva pink, sclera white. NOSE: Clear with pink turbinates. THROAT: No erythema or exudates. NECK: No masses, no JVD, no thyroid enlargement, no adenopathy. CHEST: No chest wall deformity. Symmetrical expansion. LUNGS: Equal air entry with no crackles, wheeze, rhonchi or dullness. CVS: Regular rate and rhythm, normal S1 and S2, no gallops, no murmurs, no rubs ABDOMEN: Soft, nontender. No hepatosplenomegaly, normal bowel sounds, no guarding or rigidity. PEG tube is in place site is clean dry and intact EXTREMITIES: No clubbing, no edema, no cyanosis, 2+ pulses and upper and lower extremities. MUSCULOSKELETAL: Muscle strength and tone normal. Chronic foot drops, muscle rigidity bilaterally, chronic contractures SPINE: No scoliosis or deformity SKIN: No rashes CENTRAL NERVOUS SYSTEM: Alert, nonverbal. No focal deficits, tone is normal in all 4 extremities. - Labs CBC & Chem 7: 06/06/19 10:42 06/06/19 06:13 Labs: Abnormal Lab Results - Last 24 Hours (Table) 06/05/19 06/05/19 06/05/19 Range/Units 16:48 22:10 23:01 RBC (4.30-5.90) m/uL Hgb (13.0-17.5) gm/dL Hct (39.0-53.0) % RDW (11.5-15.5) % Lymphocytes # (1.0-4.8) k/uL PT (9.0-12.0) sec INR (<1.2) Potassium (3.5-5.1) mmol/L BUN (9-20) mg/dL Glucose (74-99) mg/dL POC Glucose (mg/dL) 102 H 199 H 139 H (75-99) mg/dL Calcium (8.4-10.2) mg/dL Urine Protein (Negative) Urine Blood (Negative) Ur Leukocyte Esterase (Negative) Urine RBC (0-5) /hpf Urine WBC (0-5) /hpf Urine Mucus (None) /hpf Crossmatch 06/06/19 06/06/19 06/06/19 Range/Units 05:58 06:13 06:13 RBC 2.81 L (4.30-5.90) m/uL Hgb 7.9 L D (13.0-17.5) gm/dL Hct 24.1 L (39.0-53.0) % RDW 17.2 H (11.5-15.5) % Lymphocytes # 0.5 L (1.0-4.8) k/uL PT 32.7 H (9.0-12.0) sec INR 3.4 H (<1.2) Potassium (3.5-5.1) mmol/L BUN (9-20) mg/dL Glucose (74-99) mg/dL POC Glucose (mg/dL) 160 H (75-99) mg/dL Calcium (8.4-10.2) mg/dL Urine Protein (Negative) Urine Blood (Negative) Ur Leukocyte Esterase (Negative) Urine RBC (0-5) /hpf Urine WBC (0-5) /hpf Urine Mucus (None) /hpf Crossmatch 06/06/19 06/06/19 06/06/19 Range/Units 06:13 09:52 10:42 RBC 2.55 L (4.30-5.90) m/uL Hgb 7.2 L (13.0-17.5) gm/dL Hct 22.0 L (39.0-53.0) % RDW 17.1 H (11.5-15.5) % Lymphocytes # (1.0-4.8) k/uL PT (9.0-12.0) sec INR (<1.2) Potassium 3.2 L (3.5-5.1) mmol/L BUN 24 H (9-20) mg/dL Glucose 153 H (74-99) mg/dL POC Glucose (mg/dL) (75-99) mg/dL Calcium 8.2 L (8.4-10.2) mg/dL Urine Protein 2+ H (Negative) Urine Blood Moderate H (Negative) Ur Leukocyte Esterase Small H (Negative) Urine RBC >182 H (0-5) /hpf Urine WBC 7 H (0-5) /hpf Urine Mucus Rare H (None) /hpf Crossmatch 06/06/19 06/06/19 Range/Units 12:04 13:00 RBC (4.30-5.90) m/uL Hgb (13.0-17.5) gm/dL Hct (39.0-53.0) % RDW (11.5-15.5) % Lymphocytes # (1.0-4.8) k/uL PT (9.0-12.0) sec INR (<1.2) Potassium (3.5-5.1) mmol/L BUN (9-20) mg/dL Glucose (74-99) mg/dL POC Glucose (mg/dL) 146 H (75-99) mg/dL Calcium (8.4-10.2) mg/dL Urine Protein (Negative) Urine Blood (Negative) Ur Leukocyte Esterase (Negative) Urine RBC (0-5) /hpf Urine WBC (0-5) /hpf Urine Mucus (None) /hpf Crossmatch See Detail Microbiology - Last 24 Hours (Table) 06/04/19 00:09 Urine Culture - Preliminary Urine,Catheterized Enterococcus faecalis Pseudomonas aeruginosa Gram Neg Bacilli 06/04/19 01:25 Blood Culture Gram Stain - Final Blood Blood Culture - Final Escherichia coli Assessment and Plan Plan: Assessment: #1. Persistent epistaxis, with a blood loss anemia and hypotension, recovered. #2. ESBL E. coli bacteremia #2. recurrent urine tract infection with gram-negative bacteria. The patient's been infected with pseudomonas in the past and currently he is suspected to have ESBL producing E. coli currently on IV Invanz. Urine culture this admission was positive for enterococcus, pseudomonas #4. limited pulmonary atelectatic changes. Cough and mechanism is weak. No overt pneumonia. This is obviously an ongoing concern as the patient has a weak cough and mechanism and he is currently receiving enteral feeding for nutritional support and is a good set up for aspiration and even prison associated pneumonias. Nevertheless, on today's evaluation there is no clear evidence and the patient is currently on room air #5. advanced multiple sclerosis with cognitive impairments and the patient is nonverbal and the patient has muscle atrophy, rigidity, urinary or bowel incontinence, and the patient is bedridden #6. trigeminal neuralgia #7. history of depression #8. previous history of upper extremity DVT #9. hypertension Plan: We'll give the patient of dose of vitamin K IV piggyback, ENT service has been consulted and their evaluation is pending, patient continues to have persistent nosebleed, but no difficulty breathing, no obvious sign of aspiration, keep head of the bed up at least 45-60, monitor oxygenation, monitor for any signs of respiratory deterioration, hemodynamics, currently hemodynamically stable, slightly tachycardic, we will transfuse with 1 unit of packed red blood cells, we will hold aspirin, warfarin is on hold. Keep nothing by mouth, aspiration precautions. We'll obtain the packing device and pack the nasopharynx controlled nosebleed, patient will remain in the intensive care unit, will follow I performed a history & physical examination of the patient and discussed their management with my nurse practitioner, Naheed Pace. I reviewed the nurse practitioner's note and agree with the documented findings and plan of care. Lung sounds are positive for diffuse upper airway rhonchi. The findings and the impression was discussed with the patient. I attest to the documentation by the nurse practitioner. Time with Patient: Less than 30
--- NOTE | 2019-06-06 17:28 | P.PCN ---
Date of Procedure: 06/06/19 Preoperative Diagnosis: Epistaxis Postoperative Diagnosis: same Procedure(s) Performed: Bilateral nasal packing ant/post Anesthesia: none Surgeon: Lane Shelton Estimated Blood Loss (ml): 0 Pathology: none sent Condition: stable Disposition: PACU Indications for Procedure: Patient had an acute epistaxis and packing is required hemoglobin has dropped 3 g Operative Findings: Nasal bleeding noted Description of Procedure: 8 cm Merocel sponge packs were placed bilaterally for control of epistaxis with the right side being worse than the left. Placement was obtained and bleeding stopped patient tolerated this well examination of the oropharynx showed no further bleeding there is a staff is to call me if any problems should arise. Again bilateral 8 cm Merocel sponge packs were placed we will remove those on Sunday
--- NOTE | 2019-06-06 17:36 | P.GSCN ---
History of Present Illness Consult date: 06/06/19 Reason for Consult: Epistaxis Blood loss anemia Hypotension Requesting physician: Avila E Sheet History of present illness: This is a 59-year-old white male with multiple sclerosis unable to communicate. He started having bleeding earlier today and his hemoglobin dropped down to 7 from 10. He had a 3 g hemoglobin drop. The patient fully anticoagulated on Coumadin. He is also on nasal cannula oxygen. I've been asked to consult because of his continued epistaxis. Currently they're working on reversing his and her coagulation and providing with blood products. The patient is not communicative his relatively end-stage multiple sclerosis. Review of Systems ROS unobtainable: due to mental status Past Medical History Past Medical History: Deep Vein Thrombosis (DVT), GERD/Reflux, Hypertension, Musculoskeletal Disorder, Pneumonia, Renal Disease Additional Past Medical History / Comment(s): MS, cognitive impariment/ non verbal, NPO-peg tube,DVT-arm , IDC ,INCONT OF BOWEL. DYSARTHRIA/ANARTHRIA/DYSPHAGIA. BEDBOUND, RACHEL LIFT TO W/C, neurogenic bladder,m History of Any Multi-Drug Resistant Organisms: ESBL, MRSA Year Discovered:: ESBL 06/04/19 MRSA 10/21/17 MDRO Source:: BLOOD, URINE Additional Past Surgical History / Comment(s): PEG TUBE, HX OF GASTROSTOMY, PICC LINE Past Anesthesia/Blood Transfusion Reactions: Unable to Obtain Past Psychological History: Depression Smoking Status: Never smoker Past Alcohol Use History: None Reported Past Drug Use History: None Reported - Past Family History Father Family Medical History: Unable to Obtain Additional Family Medical History / Comment(s): patient is nonverbal Mother Family Medical History: Unable to Obtain Additional Family Medical History / Comment(s): patient is nonverbal Medications and Allergies Home Medications Medication Instructions Recorded Confirmed Type Amantadine 50mg/5ml 100 mg PEG/G-TUBE Q12H 12/28/17 06/03/19 History Ascorbic Acid [Vitamin C] 250 mg PEG/G-TUBE DAILY 12/28/17 06/03/19 History Cholecalciferol [Vitamin D3 (25 1,000 unit PEG/G-TUBE DAILY 12/28/17 06/03/19 History Mcg = 1000 Iu)] Docusate Oral Soln [Colace Oral 200 mg PEG/G-TUBE BID 12/28/17 06/03/19 History Soln] Scopolamine 1.5MG/72Hr Patch 1 patch TRANSDERM Q72H 12/28/17 06/03/19 History [TransDerm Scop] guaiFENesin [guaiFENesin Oral 200 mg PEG/G-TUBE Q6H PRN 12/28/17 06/03/19 History Solution] Baclofen 5 mg PEG/G-TUBE TID 04/07/18 06/03/19 History Furosemide [Lasix] 20 mg PEG/G-TUBE DAILY 05/24/18 06/03/19 History Oxybutynin Chloride [Ditropan] 5 mg PEG/G-TUBE TID #90 tab 07/29/18 06/03/19 Rx Pregabalin [Lyrica] 150 mg PEG/G-TUBE Q12H 11/28/18 06/03/19 History Acetaminophen Oral Susp [Tylenol 320 mg PEG/G-TUBE Q6H PRN 01/26/19 06/03/19 History Oral Susp] DULoxetine HCL [Cymbalta] 60 mg PEG/G-TUBE HS 01/26/19 06/03/19 History Metoprolol Tartrate 25 mg PEG/G-TUBE BID 01/26/19 06/03/19 History Omeprazole Magnesium [PriLOSEC 20 mg PEG/G-TUBE DAILY 01/26/19 06/03/19 History Oral Susp] Warfarin [Coumadin] 0.5 mg PEG/G-TUBE MOWEFR 04/15/19 06/03/19 History Warfarin [Coumadin] 5 mg PEG/G-TUBE DAILY 04/15/19 06/03/19 History carBAMazepine [carBAMazepine Oral 300 mg PEG/G-TUBE Q8H 04/15/19 06/03/19 History Susp] Cranberry Fruit Extract [Cranberry] 500 mg PEG/G-TUBE Q12H 06/03/19 06/03/19 History cefTRIAXone [Rocephin] 1 gm IVPB ONCE 06/03/19 06/03/19 History Allergies Allergy/AdvReac Type Severity Reaction Status Date / Time meropenem [From Merrem] Allergy Rash/Hives Verified 06/03/19 23:14 Surgical - Exam Osteopathic Statement: *. No significant issues noted on an osteopathic structural exam other than those noted in the History and Physical/Consult. Vital Signs Temp Pulse Resp BP Pulse Ox 98.2 F 90 20 118/81 98 06/03/19 23:13 06/03/19 23:13 06/03/19 23:13 06/03/19 23:13 06/03/19 23:13 - General chronically ill - Eyes pale - ENT Bleeding coming from the right naris. I conjunctivae is pale. - Integumentary no rash - Neurologic other (Multiple sclerosis end-stage) - Musculoskeletal other (Contractures noted) - Psychiatric other (Unable to assess because of this condition) Results - Labs 06/06/19 10:42 06/06/19 06:13 Abnormal Lab Results - Last 24 Hours (Table) 06/05/19 06/05/19 06/06/19 Range/Units 22:10 23:01 05:58 RBC (4.30-5.90) m/uL Hgb (13.0-17.5) gm/dL Hct (39.0-53.0) % RDW (11.5-15.5) % Lymphocytes # (1.0-4.8) k/uL PT (9.0-12.0) sec INR (<1.2) Potassium (3.5-5.1) mmol/L BUN (9-20) mg/dL Glucose (74-99) mg/dL POC Glucose (mg/dL) 199 H 139 H 160 H (75-99) mg/dL Calcium (8.4-10.2) mg/dL Urine Protein (Negative) Urine Blood (Negative) Ur Leukocyte Esterase (Negative) Urine RBC (0-5) /hpf Urine WBC (0-5) /hpf Urine Mucus (None) /hpf Crossmatch 06/06/19 06/06/19 06/06/19 Range/Units 06:13 06:13 06:13 RBC 2.81 L (4.30-5.90) m/uL Hgb 7.9 L D (13.0-17.5) gm/dL Hct 24.1 L (39.0-53.0) % RDW 17.2 H (11.5-15.5) % Lymphocytes # 0.5 L (1.0-4.8) k/uL PT 32.7 H (9.0-12.0) sec INR 3.4 H (<1.2) Potassium 3.2 L (3.5-5.1) mmol/L BUN 24 H (9-20) mg/dL Glucose 153 H (74-99) mg/dL POC Glucose (mg/dL) (75-99) mg/dL Calcium 8.2 L (8.4-10.2) mg/dL Urine Protein (Negative) Urine Blood (Negative) Ur Leukocyte Esterase (Negative) Urine RBC (0-5) /hpf Urine WBC (0-5) /hpf Urine Mucus (None) /hpf Crossmatch 06/06/19 06/06/19 06/06/19 Range/Units 09:52 10:42 12:04 RBC 2.55 L (4.30-5.90) m/uL Hgb 7.2 L (13.0-17.5) gm/dL Hct 22.0 L (39.0-53.0) % RDW 17.1 H (11.5-15.5) % Lymphocytes # (1.0-4.8) k/uL PT (9.0-12.0) sec INR (<1.2) Potassium (3.5-5.1) mmol/L BUN (9-20) mg/dL Glucose (74-99) mg/dL POC Glucose (mg/dL) 146 H (75-99) mg/dL Calcium (8.4-10.2) mg/dL Urine Protein 2+ H (Negative) Urine Blood Moderate H (Negative) Ur Leukocyte Esterase Small H (Negative) Urine RBC >182 H (0-5) /hpf Urine WBC 7 H (0-5) /hpf Urine Mucus Rare H (None) /hpf Crossmatch 06/06/19 Range/Units 13:00 RBC (4.30-5.90) m/uL Hgb (13.0-17.5) gm/dL Hct (39.0-53.0) % RDW (11.5-15.5) % Lymphocytes # (1.0-4.8) k/uL PT (9.0-12.0) sec INR (<1.2) Potassium (3.5-5.1) mmol/L BUN (9-20) mg/dL Glucose (74-99) mg/dL POC Glucose (mg/dL) (75-99) mg/dL Calcium (8.4-10.2) mg/dL Urine Protein (Negative) Urine Blood (Negative) Ur Leukocyte Esterase (Negative) Urine RBC (0-5) /hpf Urine WBC (0-5) /hpf Urine Mucus (None) /hpf Crossmatch See Detail Microbiology - Last 24 Hours (Table) 06/04/19 00:09 Urine Culture - Preliminary Urine,Catheterized Enterococcus faecalis Pseudomonas aeruginosa Gram Neg Bacilli 06/04/19 01:25 Blood Culture Gram Stain - Final Blood Blood Culture - Final Escherichia coli Diabetes panel 06/06/19 Range/Units 06:13 Sodium 140 (137-145) mmol/L Potassium 3.2 L (3.5-5.1) mmol/L Chloride 104 (98-107) mmol/L Carbon Dioxide 25 (22-30) mmol/L BUN 24 H (9-20) mg/dL Creatinine 0.98 (0.66-1.25) mg/dL Glucose 153 H (74-99) mg/dL Calcium 8.2 L (8.4-10.2) mg/dL Calcium panel 06/06/19 Range/Units 06:13 Calcium 8.2 L (8.4-10.2) mg/dL Pituitary panel 06/06/19 Range/Units 06:13 Sodium 140 (137-145) mmol/L Potassium 3.2 L (3.5-5.1) mmol/L Chloride 104 (98-107) mmol/L Carbon Dioxide 25 (22-30) mmol/L BUN 24 H (9-20) mg/dL Creatinine 0.98 (0.66-1.25) mg/dL Glucose 153 H (74-99) mg/dL Calcium 8.2 L (8.4-10.2) mg/dL Adrenal panel 06/06/19 Range/Units 06:13 Sodium 140 (137-145) mmol/L Potassium 3.2 L (3.5-5.1) mmol/L Chloride 104 (98-107) mmol/L Carbon Dioxide 25 (22-30) mmol/L BUN 24 H (9-20) mg/dL Creatinine 0.98 (0.66-1.25) mg/dL Glucose 153 H (74-99) mg/dL Calcium 8.2 L (8.4-10.2) mg/dL Assessment and Plan (1) Epistaxis Current Visit: Yes Status: Acute Code(s): R04.0 - EPISTAXIS SNOMED Code(s): 780670458 (2) Blood loss anemia Current Visit: Yes Status: Acute Code(s): D50.0 - IRON DEFICIENCY ANEMIA SECONDARY TO BLOOD LOSS (CHRONIC) SNOMED Code(s): 780942041 (3) Hypotension Current Visit: Yes Status: Acute Code(s): I95.9 - HYPOTENSION, UNSPECIFIED SNOMED Code(s): 72237100 Plan: Bilateral nasal packings placed. Patient tolerated this well bleeding stopped we will remove the pack on Sunday. Nursing staff is to call me if any bleeding should recur
--- NOTE | 2019-06-06 17:38 | XR ---
EXAMINATION TYPE: XR chest 1V portable DATE OF EXAM: 06/06/2019 COMPARISON: 06/04/2019 HISTORY: Cough TECHNIQUE: Single frontal view of the chest is obtained. FINDINGS: There are mild bilateral perihilar pulmonary infiltrates. Heart size is normal. There are chest leads. There is no pleural effusion. Bony thorax is intact. IMPRESSION: Mild perihilar pulmonary infiltrates increased on the right side and unchanged on the le ft side compared to last exam. No gross heart failure.
--- NOTE | 2019-06-06 17:49 | PN ---
PROGRESS NOTE DATE OF SERVICE: 06/06/2019 REASON FOR FOLLOWUP: ESBL E coli UTI and bacteremia. INTERVAL HISTORY: The patient has been transferred down to the ICU because of his respiratory distress. The patient did spike a fever last night and this morning of 101. However, the patient has been afebrile since then. The patient seemed to be more awake and alert compared to yesterday's examination. No nausea, vomiting or any diarrhea reported by the nursing staff. PHYSICAL EXAMINATION: Blood pressure 126/85 with a pulse of 102, temperature of 98. He is 94% on 2 L nasal cannula. General description is a middle-aged male lying in bed in no distress. RESPIRATORY SYSTEM: Unlabored breathing with decreased breath sounds at the base. No wheeze. HEART: S1, S2. Regular rate and rhythm. ABDOMEN: Soft. No tenderness. EXTREMITIES: No edema of the feet. LABS: Hemoglobin 7.1, white count 6.5. Lactic acid is 1.1. Repeat urine is positive. DIAGNOSTIC IMPRESSION AND PLAN: Patient with extended-spectrum beta-lactamase Escherichia coli bacteremia. Source is likely urine. Urine did show other pathogen; however, more likely E coli is the main pathogen, which is currently covered with Invanz; to continue. A repeat urine culture has been ordered after changing of his Stein catheter. Those will monitored. Continue with supportive care. MMODL / IJN: [id number] /
--- NOTE | 2019-06-06 19:17 | P.EN ---
This patient had some bleeding from the right nares. I inserted FloSeal and a rapid Rhino double-lumen on the right side. It appears that the bleeding stopped and the patient tolerated this well. I did remove the right-sided Merocel but left the left sided Merocel sponge in place. The patient currently has FloSeal and a double lumen right-sided rapid Rhino and a Murocel on the left side. Nursing staff is to call me if any breakthrough bleeding is noted. Vitals are stable. Patient is currently receiving blood products.
--- NOTE | 2019-06-06 21:13 | CT ---
EXAMINATION TYPE: CT abdomen pelvis wo con DATE OF EXAM: 06/06/2019 COMPARISON: 10/21/2017 HISTORY: Abdominal distention. CT DLP: 874.6 mGycm Automated exposure control for dose reduction was used. TECHNIQUE: Helical acquisition of images was performed from the lung bases through the pelvis. FINDINGS: There is some infiltrate and atelectasis at the posterior lung bases. There is mild basilar pleural t hickening. There is no pericardial effusion. Liver and gallbladder appear normal. Bile ducts are not dilated. There is no evidence of a splenic ma ss. There is no pancreatic mass. There is extensive stranding around the left kidney. Left kidney is enlarged with an apparent large s ubcapsular hematoma. There is anterior displacement of the left kidney. Right kidney shows no hydrone phrosis. Right kidney has normal size. The apparent subcapsular hematoma of the left kidney measures up to 4 cm in thickness. This involves almost the entire length of the kidney. There is no retroperitoneal adenopathy. There is a massive amount of fecal material in the rectum. Re ctum is dilated up to 9 cm. There is Stein catheter in the urinary bladder. There is no inguinal elias ia. There is no free fluid in the pelvis. There is some retroperitoneal fluid along the left psoas mu scle. I see no evidence of free air. There is no ascites. There is significant deformity of the left hip joint with old ununited femoral neck fracture. There is some bony exostosis noted of the proximal right femur. IMPRESSION: THERE IS SOME INFILTRATE AND ATELECTASIS AT THE LUNG BASES INCREASED COMPARED TO OLD EXAM. THERE IS A LARGE LEFT SIDE PERINEPHRIC HEMATOMA AND SUBCAPSULAR HEMATOMA THAT IS NEW COMPARED TO OLD EXAM. NO HYDRONEPHROSIS. RECTAL FECAL IMPACTION UNCHANGED COMPARED TO OLD EXAM. THIS EXAM WAS DISCUSSED WITH THE PATIENT'S NURSE WHIT ON THE FLOOR AT 9:10 PM.
[2019-06-06] MEDS: ERTAPENEM 1 GM in SODIUM CHLORIDE 0.9% 50 ML IVPB SCH (23:56)
[2019-06-07] MEDS: AMANTADINE HCL 100 MG/10 ML CUP PEG/G-TUBE SCH ×3 (00:20→23:10)
[2019-06-07] MEDS: ACETAMINOPHEN ORAL SUSP 160 MG/5 ML CUP PEG/G-TUBE PRN ×2 (00:20→19:59)
[2019-06-07 00:34] LABS: Anisocytosis Slight; HGB 7.4 gm/dL (13.0-17.5); MCH 28.4 pg (25.0-35.0); MCHC 32.4 g/dL (31.0-37.0); MCV 87.7 fL (80.0-100.0); Mean Platelet Volume 8.1; Platelet Count 214 k/uL (150-450); RBC 2.62 m/uL (4.30-5.90); WBC 10.4 k/uL (3.8-10.6)
[2019-06-07 07:06] LABS: African American GFR (CKD) >90 (>60 ml/min/1.73 sqM); Anion Gap 10 mmol/L; Blood Urea Nitrogen 23 mg/dL (9-20); Calcium 8.7 mg/dL (8.4-10.2); Carbon Dioxide 27 mmol/L (22-30); Chloride 108 mmol/L (98-107); Glucose 106 mg/dL (74-99); Potassium 3.4 mmol/L (3.5-5.1); Sodium 145 mmol/L (137-145)
[2019-06-07 07:12] LABS: INR 1.1 (<1.2); Prothrombin Time 11.2 sec (9.0-12.0)
[2019-06-07 07:50] LABS: Anisocytosis Slight; HCT 22.5 % (39.0-53.0); HGB 7.5 gm/dL (13.0-17.5); MCH 29.5 pg (25.0-35.0); MCHC 33.2 g/dL (31.0-37.0); MCV 88.8 fL (80.0-100.0); Mean Platelet Volume 9.2; Platelet Count 240 k/uL (150-450); RBC 2.53 m/uL (4.30-5.90); RDW 16.7 % (11.5-15.5); WBC 9.1 k/uL (3.8-10.6)
[2019-06-07] MEDS: DOCUSATE ORAL SOLN 100 MG/10 ML CUP PEG/G-TUBE SCH ×2 (08:15→21:00)
[2019-06-07] MEDS: SCOPOLAMINE 1.5MG/72HR PATCH TRANSDERM SCH (08:46)
[2019-06-07] MEDS: POTASSIUM BICARBONATE/CIT AC 20 MEQ TABLET.EFF NG-TUBE SCH ×2 (08:46→12:48)
[2019-06-07] MEDS: BACLOFEN 10 MG TAB PEG/G-TUBE SCH ×3 (08:46→20:59)
[2019-06-07] MEDS: CHOLECALCIFEROL 1,000 UNIT TAB PEG/G-TUBE SCH (08:47)
[2019-06-07] MEDS: METOPROLOL TARTRATE 25 MG TAB PEG/G-TUBE SCH ×2 (08:47→20:59)
[2019-06-07] MEDS: FUROSEMIDE 20 MG TAB PEG/G-TUBE SCH (08:47)
[2019-06-07] MEDS: PANTOPRAZOLE SODIUM 40 MG GRANULE PKT PEG/G-TUBE SCH (08:47)
[2019-06-07] MEDS: PREGABALIN 50 MG CAP PEG/G-TUBE SCH ×2 (08:55→20:59)
[2019-06-07 09:05] LABS: Band Neutrophils % 1 %; Eosinophils # (M) 0.18 k/uL (0-0.7); Lymphocytes # (M) 0.82 k/uL (1.0-4.8); Monocytes # (M) 0.36 k/uL (0-1.0); Neutrophils % (M) 84 %; Nucleated Red Blood Cells 0 /100 WBC (0-0); Total Cells Counted 100
--- NOTE | 2019-06-07 09:49 | XR ---
EXAMINATION TYPE: XR chest 1V portable DATE OF EXAM: 06/07/2019 COMPARISON: 06/06/2019 INDICATION: ICU management cough TECHNIQUE: Single frontal view of the chest is obtained. FINDINGS: The heart size is normal. The pulmonary vasculature is normal. Perihilar infiltrates are present greater on the right. Findings are worsening over the interval. IMPRESSION: 1. Developing perihilar infiltrates. Correlate for pneumonia. Follow-up is recommended.
--- NOTE | 2019-06-07 10:54 | P.GSCN ---
History of Present Illness Consult date: 06/07/19 Reason for Consult: Left perinephric hematoma History of present illness: This is a 5-year-old male who developed a left perinephric hematoma after anticoagulation. The patient was transferred to the ICU last several observation. Patient describes some vague left-sided abdominal pain. He currently appears stable. Past Medical History Past Medical History: Deep Vein Thrombosis (DVT), GERD/Reflux, Hypertension, Musculoskeletal Disorder, Pneumonia, Renal Disease Additional Past Medical History / Comment(s): MS, cognitive impariment/ non verbal, NPO-peg tube,DVT-arm , IDC ,INCONT OF BOWEL. DYSARTHRIA/ANARTHRIA/DYSPHAGIA. BEDBOUND, RACHEL LIFT TO W/C, neurogenic bladder,m History of Any Multi-Drug Resistant Organisms: ESBL, MRSA Year Discovered:: ESBL 06/04/19 MRSA 10/21/17 MDRO Source:: BLOOD, URINE Additional Past Surgical History / Comment(s): PEG TUBE, HX OF GASTROSTOMY, PICC LINE Past Anesthesia/Blood Transfusion Reactions: Unable to Obtain Past Psychological History: Depression Smoking Status: Never smoker Past Alcohol Use History: None Reported Past Drug Use History: None Reported - Past Family History Father Family Medical History: Unable to Obtain Additional Family Medical History / Comment(s): patient is nonverbal Mother Family Medical History: Unable to Obtain Additional Family Medical History / Comment(s): patient is nonverbal Medications and Allergies Home Medications Medication Instructions Recorded Confirmed Type Amantadine 50mg/5ml 100 mg PEG/G-TUBE Q12H 12/28/17 06/03/19 History Ascorbic Acid [Vitamin C] 250 mg PEG/G-TUBE DAILY 12/28/17 06/03/19 History Cholecalciferol [Vitamin D3 (25 1,000 unit PEG/G-TUBE DAILY 12/28/17 06/03/19 History Mcg = 1000 Iu)] Docusate Oral Soln [Colace Oral 200 mg PEG/G-TUBE BID 12/28/17 06/03/19 History Soln] Scopolamine 1.5MG/72Hr Patch 1 patch TRANSDERM Q72H 12/28/17 06/03/19 History [TransDerm Scop] guaiFENesin [guaiFENesin Oral 200 mg PEG/G-TUBE Q6H PRN 12/28/17 06/03/19 History Solution] Baclofen 5 mg PEG/G-TUBE TID 04/07/18 06/03/19 History Furosemide [Lasix] 20 mg PEG/G-TUBE DAILY 05/24/18 06/03/19 History Oxybutynin Chloride [Ditropan] 5 mg PEG/G-TUBE TID #90 tab 07/29/18 06/03/19 Rx Pregabalin [Lyrica] 150 mg PEG/G-TUBE Q12H 11/28/18 06/03/19 History Acetaminophen Oral Susp [Tylenol 320 mg PEG/G-TUBE Q6H PRN 01/26/19 06/03/19 History Oral Susp] DULoxetine HCL [Cymbalta] 60 mg PEG/G-TUBE HS 01/26/19 06/03/19 History Metoprolol Tartrate 25 mg PEG/G-TUBE BID 01/26/19 06/03/19 History Omeprazole Magnesium [PriLOSEC 20 mg PEG/G-TUBE DAILY 01/26/19 06/03/19 History Oral Susp] Warfarin [Coumadin] 0.5 mg PEG/G-TUBE MOWEFR 04/15/19 06/03/19 History Warfarin [Coumadin] 5 mg PEG/G-TUBE DAILY 04/15/19 06/03/19 History carBAMazepine [carBAMazepine Oral 300 mg PEG/G-TUBE Q8H 04/15/19 06/03/19 History Susp] Cranberry Fruit Extract [Cranberry] 500 mg PEG/G-TUBE Q12H 06/03/19 06/03/19 History cefTRIAXone [Rocephin] 1 gm IVPB ONCE 06/03/19 06/03/19 History Allergies Allergy/AdvReac Type Severity Reaction Status Date / Time meropenem [From Merrem] Allergy Rash/Hives Verified 06/03/19 23:14 Surgical - Exam Vital Signs Temp Pulse Resp BP Pulse Ox 98.2 F 90 20 118/81 98 06/03/19 23:13 06/03/19 23:13 06/03/19 23:13 06/03/19 23:13 06/03/19 23:13 - General no distress - Eyes PERRL - Abdomen Soft there is some minimal tenderness throughout. There is no rebound or guarding. Results - Labs 06/07/19 06:29 06/07/19 06:29 Abnormal Lab Results - Last 24 Hours (Table) 06/06/19 06/06/19 06/06/19 Range/Units 10:42 12:04 13:00 RBC 2.55 L (4.30-5.90) m/uL Hgb 7.2 L (13.0-17.5) gm/dL Hct 22.0 L (39.0-53.0) % RDW 17.1 H (11.5-15.5) % Lymphocytes # (Manual) (1.0-4.8) k/uL Potassium (3.5-5.1) mmol/L Chloride (98-107) mmol/L BUN (9-20) mg/dL Glucose (74-99) mg/dL POC Glucose (mg/dL) 146 H (75-99) mg/dL Crossmatch See Detail 06/07/19 06/07/19 06/07/19 Range/Units 00:15 06:29 06:29 RBC 2.62 L 2.53 L (4.30-5.90) m/uL Hgb 7.4 L 7.5 L (13.0-17.5) gm/dL Hct 23.0 L 22.5 L (39.0-53.0) % RDW 17.0 H 16.7 H (11.5-15.5) % Lymphocytes # (Manual) 0.82 L (1.0-4.8) k/uL Potassium 3.4 L (3.5-5.1) mmol/L Chloride 108 H (98-107) mmol/L BUN 23 H (9-20) mg/dL Glucose 106 H (74-99) mg/dL POC Glucose (mg/dL) (75-99) mg/dL Crossmatch Microbiology - Last 24 Hours (Table) 06/04/19 00:09 Urine Culture - Preliminary Urine,Catheterized Enterococcus faecalis Pseudomonas aeruginosa Gram Neg Bacilli Diabetes panel 06/07/19 Range/Units 06:29 Sodium 145 (137-145) mmol/L Potassium 3.4 L (3.5-5.1) mmol/L Chloride 108 H (98-107) mmol/L Carbon Dioxide 27 (22-30) mmol/L BUN 23 H (9-20) mg/dL Creatinine 0.82 (0.66-1.25) mg/dL Glucose 106 H (74-99) mg/dL Calcium 8.7 (8.4-10.2) mg/dL Calcium panel 06/07/19 Range/Units 06:29 Calcium 8.7 (8.4-10.2) mg/dL Pituitary panel 06/07/19 Range/Units 06:29 Sodium 145 (137-145) mmol/L Potassium 3.4 L (3.5-5.1) mmol/L Chloride 108 H (98-107) mmol/L Carbon Dioxide 27 (22-30) mmol/L BUN 23 H (9-20) mg/dL Creatinine 0.82 (0.66-1.25) mg/dL Glucose 106 H (74-99) mg/dL Calcium 8.7 (8.4-10.2) mg/dL Adrenal panel 06/07/19 Range/Units 06:29 Sodium 145 (137-145) mmol/L Potassium 3.4 L (3.5-5.1) mmol/L Chloride 108 H (98-107) mmol/L Carbon Dioxide 27 (22-30) mmol/L BUN 23 H (9-20) mg/dL Creatinine 0.82 (0.66-1.25) mg/dL Glucose 106 H (74-99) mg/dL Calcium 8.7 (8.4-10.2) mg/dL Assessment and Plan Assessment: Left perinephric hematoma. I recommended urology consultation. Patient's hemoglobins will be monitored. He'll be observed this point.
[2019-06-07 12:20] LABS: Anisocytosis Slight; HCT 22.9 % (39.0-53.0); HGB 7.6 gm/dL (13.0-17.5); MCH 29.5 pg (25.0-35.0); MCHC 33.3 g/dL (31.0-37.0); MCV 88.6 fL (80.0-100.0); Mean Platelet Volume 8.6; Platelet Count 232 k/uL (150-450); RBC 2.58 m/uL (4.30-5.90); WBC 9.1 k/uL (3.8-10.6)
--- NOTE | 2019-06-07 12:55 | P.GSCN ---
History of Present Illness Consult date: 06/07/19 Reason for Consult: Lef perinephric hematoma History of present illness: Mr. Marvin is a 59-year-old male with history of multiple sclerosis. At baseline he is bedbound. He is admitted to the hospital for a UTI. Urology is consulted for a perinephric hematoma. Patient underwent CT abdomen and pelvis which showed a large left perinephric hematoma. His hemoglobin initially dropped by 3 g. He's receive 2 units of packed RBCs on since his transfusion his hemoglobin has been stable. He also had a significant nose bleed the is been manged by ENT. Of note he is on anticoagulation for DVT, which is on hold . Review of Systems ROS unobtainable: due to mental status Past Medical History Past Medical History: Deep Vein Thrombosis (DVT), GERD/Reflux, Hypertension, Musculoskeletal Disorder, Pneumonia, Renal Disease Additional Past Medical History / Comment(s): MS, cognitive impariment/ non verbal, NPO-peg tube,DVT-arm , IDC ,INCONT OF BOWEL. DYSARTHRIA/ANARTHRIA/DYSPHAGIA. BEDBOUND, RACHEL LIFT TO W/C, neurogenic bladder,m History of Any Multi-Drug Resistant Organisms: ESBL, MRSA Year Discovered:: ESBL 06/04/19 MRSA 10/21/17 MDRO Source:: BLOOD, URINE Additional Past Surgical History / Comment(s): PEG TUBE, HX OF GASTROSTOMY, PICC LINE Past Anesthesia/Blood Transfusion Reactions: Unable to Obtain Past Psychological History: Depression Smoking Status: Never smoker Past Alcohol Use History: None Reported Past Drug Use History: None Reported - Past Family History Father Family Medical History: Unable to Obtain Additional Family Medical History / Comment(s): patient is nonverbal Mother Family Medical History: Unable to Obtain Additional Family Medical History / Comment(s): patient is nonverbal Medications and Allergies Home Medications Medication Instructions Recorded Confirmed Type Amantadine 50mg/5ml 100 mg PEG/G-TUBE Q12H 12/28/17 06/03/19 History Ascorbic Acid [Vitamin C] 250 mg PEG/G-TUBE DAILY 12/28/17 06/03/19 History Cholecalciferol [Vitamin D3 (25 1,000 unit PEG/G-TUBE DAILY 12/28/17 06/03/19 History Mcg = 1000 Iu)] Docusate Oral Soln [Colace Oral 200 mg PEG/G-TUBE BID 12/28/17 06/03/19 History Soln] Scopolamine 1.5MG/72Hr Patch 1 patch TRANSDERM Q72H 12/28/17 06/03/19 History [TransDerm Scop] guaiFENesin [guaiFENesin Oral 200 mg PEG/G-TUBE Q6H PRN 12/28/17 06/03/19 History Solution] Baclofen 5 mg PEG/G-TUBE TID 04/07/18 06/03/19 History Furosemide [Lasix] 20 mg PEG/G-TUBE DAILY 05/24/18 06/03/19 History Oxybutynin Chloride [Ditropan] 5 mg PEG/G-TUBE TID #90 tab 07/29/18 06/03/19 Rx Pregabalin [Lyrica] 150 mg PEG/G-TUBE Q12H 11/28/18 06/03/19 History Acetaminophen Oral Susp [Tylenol 320 mg PEG/G-TUBE Q6H PRN 01/26/19 06/03/19 History Oral Susp] DULoxetine HCL [Cymbalta] 60 mg PEG/G-TUBE HS 01/26/19 06/03/19 History Metoprolol Tartrate 25 mg PEG/G-TUBE BID 01/26/19 06/03/19 History Omeprazole Magnesium [PriLOSEC 20 mg PEG/G-TUBE DAILY 01/26/19 06/03/19 History Oral Susp] Warfarin [Coumadin] 0.5 mg PEG/G-TUBE MOWEFR 04/15/19 06/03/19 History Warfarin [Coumadin] 5 mg PEG/G-TUBE DAILY 04/15/19 06/03/19 History carBAMazepine [carBAMazepine Oral 300 mg PEG/G-TUBE Q8H 04/15/19 06/03/19 History Susp] Cranberry Fruit Extract [Cranberry] 500 mg PEG/G-TUBE Q12H 06/03/19 06/03/19 History cefTRIAXone [Rocephin] 1 gm IVPB ONCE 06/03/19 06/03/19 History Allergies Allergy/AdvReac Type Severity Reaction Status Date / Time meropenem [From Merrem] Allergy Rash/Hives Verified 06/03/19 23:14 Surgical - Exam Vital Signs Temp Pulse Resp BP Pulse Ox 98.2 F 90 20 118/81 98 06/03/19 23:13 06/03/19 23:13 06/03/19 23:13 06/03/19 23:13 06/03/19 23:13 - General no no distress, chronically ill - Cardiovascular Rhythm: regular - Abdomen Abdomen: soft, tender (left flank ) - Genitourinary other (urethral erosion secondary to aggarwal catheter ) - Psychiatric oriented to person Results - Labs 06/07/19 11:58 06/07/19 06:29 Abnormal Lab Results - Last 24 Hours (Table) 06/06/19 06/06/19 06/07/19 Range/Units 12:04 13:00 00:15 RBC 2.62 L (4.30-5.90) m/uL Hgb 7.4 L (13.0-17.5) gm/dL Hct 23.0 L (39.0-53.0) % RDW 17.0 H (11.5-15.5) % Lymphocytes # (Manual) (1.0-4.8) k/uL Potassium (3.5-5.1) mmol/L Chloride (98-107) mmol/L BUN (9-20) mg/dL Glucose (74-99) mg/dL POC Glucose (mg/dL) 146 H (75-99) mg/dL Crossmatch See Detail 06/07/19 06/07/19 Range/Units 06:29 06:29 RBC 2.53 L (4.30-5.90) m/uL Hgb 7.5 L (13.0-17.5) gm/dL Hct 22.5 L (39.0-53.0) % RDW 16.7 H (11.5-15.5) % Lymphocytes # (Manual) 0.82 L (1.0-4.8) k/uL Potassium 3.4 L (3.5-5.1) mmol/L Chloride 108 H (98-107) mmol/L BUN 23 H (9-20) mg/dL Glucose 106 H (74-99) mg/dL POC Glucose (mg/dL) (75-99) mg/dL Crossmatch Microbiology - Last 24 Hours (Table) 06/04/19 00:09 Urine Culture - Preliminary Urine,Catheterized Enterococcus faecalis Pseudomonas aeruginosa Gram Neg Bacilli Diabetes panel 06/07/19 Range/Units 06:29 Sodium 145 (137-145) mmol/L Potassium 3.4 L (3.5-5.1) mmol/L Chloride 108 H (98-107) mmol/L Carbon Dioxide 27 (22-30) mmol/L BUN 23 H (9-20) mg/dL Creatinine 0.82 (0.66-1.25) mg/dL Glucose 106 H (74-99) mg/dL Calcium 8.7 (8.4-10.2) mg/dL Calcium panel 06/07/19 Range/Units 06:29 Calcium 8.7 (8.4-10.2) mg/dL Pituitary panel 06/07/19 Range/Units 06:29 Sodium 145 (137-145) mmol/L Potassium 3.4 L (3.5-5.1) mmol/L Chloride 108 H (98-107) mmol/L Carbon Dioxide 27 (22-30) mmol/L BUN 23 H (9-20) mg/dL Creatinine 0.82 (0.66-1.25) mg/dL Glucose 106 H (74-99) mg/dL Calcium 8.7 (8.4-10.2) mg/dL Adrenal panel 06/07/19 Range/Units 06:29 Sodium 145 (137-145) mmol/L Potassium 3.4 L (3.5-5.1) mmol/L Chloride 108 H (98-107) mmol/L Carbon Dioxide 27 (22-30) mmol/L BUN 23 H (9-20) mg/dL Creatinine 0.82 (0.66-1.25) mg/dL Glucose 106 H (74-99) mg/dL Calcium 8.7 (8.4-10.2) mg/dL - Imaging CT scan - abdomen: image reviewed (large left perinephric hematoma) Assessment and Plan Assessment: Mr. Marvin is a 59-year-old male admitted for UTI. Urology is counsulted for a large left perinephric hematoma. Plan: -NPO -Bedrest -q 6 hemoglobin check -Hold anticoagulation for now
--- NOTE | 2019-06-07 13:42 | P.PN ---
Subjective Progress Note Date: 06/07/19 59-year-old male patient with known history of severe MS and the patient has been essentially bedridden and nonverbal with a chronic indwelling Stein catheter with previous history of recurrent UTIs including infections with gram- negative bacteria such as Pseudomonas. The patient is a custodial resident. He has also had previous infections with ESBL producing E. coli in the urine. The patient came in yesterday because of interval worsening in mental status, fever, leukocytosis, suspected recurrent urine checked infection and I was asked to evaluate this patient for possible pneumonia. He is currently on room air. His resting comfortably. His enteral feeding for nutritional support. He does not communicate. He does not look to be tachypneic. He has a decent cough and he has a congested cough. It seems that he has some upper airway secretions. Chest x-ray shows some limited atelectatic changes in lung bases bilaterally. No reported aspiration. He is currently on IV Invanz eating an ESBL producing E. coli. Upon inspection, the patient seems to be quite emaciated and cachect ic. He has multiple contractures in lower extremities related to MS. As stated, is nonverbal. He grimaces to painful stimulation. On 06/06/2019 patient has been transferred to the intensive care unit, apparently rapid response team was called for concern of hypotension, patient was transiently hypotensive, with a blood pressure of 79/52, developed a nosebleed, patient's hemoglobin went down from 10.4-7.9 on this morning's labs, distant epistaxis, INR today is 3.4, 1 unit of blood has been ordered. Patient is currently not intensive care unit, apparently the nosebleed had stopped initially, however it resumed, ENT service has been consulted, but has not been in to evaluate the patient yet, hemodynamically patient appears to be stable, no additional fluids were given, the patient is slightly tachycardic, current blood pressure is 118/84, patient is afebrile, currently the oxygen cannula is off, but the patient is maintaining oxygenation of 96%. We will give the patient dose of vitamin K as well, patient is on Coumadin for history of DVT, and a baby aspirin, which we will hold. No respiratory difficulty right now, head the bed is up 60 degrees. On 06/07/2019 I'm seeing this patient for a follow-up. The patient got moved to the intensive care unit yesterday because of epistaxis. Coagulopathy was reversed. Coumadin was stopped. The nostrils were packed bilaterally by ENT. Since then, there is no ongoing bleeding. The chest x-ray showed bilateral pulmonary infiltration, consistent aspiration. The patient remains on IV Invanz for a E. coli urinary tract infection. This was an ESBL producing organism. The patient remains nonverbal. I think he comprehends and he understands when things are explained to him. He is profoundly weak. He is bedridden. His nonambulatory. He is hemodynamically stable. He has a congested cough. Unable to bring up much sputum. Cough and mechanism is weak. He is receiving enteral feeding for nutritional support. Pulse ox is 90% on room air. Hemodynamically stable. Objective - Vital Signs Vital signs: Vital Signs Temp 98.2 F 06/07/19 12:00 Pulse 97 06/07/19 13:00 Resp 26 H 06/07/19 13:00 BP 139/85 06/07/19 13:00 Pulse Ox 90 L 06/07/19 13:00 Intake & Output 06/06/19 06/07/19 06/07/19 18:59 06:59 18:59 Intake Total 504 1120 410 Output Total 017 261 1014 Balance 379 445 -1340 Weight 71.1 kg 70.3 kg Intake: IV 500 350 Ertapenem 1 gm In Sodium 100 Chloride 0.9% 50 ml @ 100 mls/hr IVPB Q24H [facility] Rx# :[id number] Sodium Chloride 0.9% 1, 400 350 000 ml @ 50 mls/hr IV . Q20H [facility] Rx#:[id number] Oral 0 Tube Feeding 200 Blood Product 304 620 Ffp 24 Cpd Unit 304 [id number] Rc As-1 Unit 0 0 [id number] Rc Pheresis 2 As3 Unit 310 [id number] Other 60 Output: Urine 235 148 8952 Stool 50 50 Other: Voiding Method Indwelling Catheter Indwelling Catheter Indwelling Catheter # Voids 50 50 - Exam GENERAL EXAM: Alert, pleasant, 59-year-old white male, sitting up high in bed, at least 60, oxygen off, but pulse ox is 96%, is having persistent nosebleed, comfortable in no apparent distress. Patient has chronic contractures of extremities, he is cachectic, alert, but he is nonverbal, the patient has packing in both nostrils for control of epistaxis. HEAD: Normocephalic/atraumatic. EYES: Normal reaction of pupils, equal size. Conjunctiva pink, sclera white. NOSE: Clear with pink turbinates. THROAT: No erythema or exudates. NECK: No masses, no JVD, no thyroid enlargement, no adenopathy. The nostrils are packed bilaterally for epistaxis. CHEST: No chest wall deformity. Symmetrical expansion. LUNGS: Equal air entry with no crackles, wheeze, rhonchi or dullness. CVS: Regular rate and rhythm, normal S1 and S2, no gallops, no murmurs, no rubs ABDOMEN: Soft, nontender. No hepatosplenomegaly, normal bowel sounds, no guarding or rigidity. PEG tube is in place site is clean dry and intact EXTREMITIES: No clubbing, no edema, no cyanosis, 2+ pulses and upper and lower extremities. MUSCULOSKELETAL: Muscle strength and tone normal. Chronic foot drops, muscle rigidity bilaterally, chronic contractures SPINE: No scoliosis or deformity SKIN: No rashes CENTRAL NERVOUS SYSTEM: Alert, nonverbal. No focal deficits, tone is normal in all 4 extremities. - Labs CBC & Chem 7: 06/07/19 11:58 06/07/19 06:29 Labs: Abnormal Lab Results - Last 24 Hours (Table) 06/06/19 06/07/19 06/07/19 Range/Units 13:00 00:15 06:29 RBC 2.62 L 2.53 L (4.30-5.90) m/uL Hgb 7.4 L 7.5 L (13.0-17.5) gm/dL Hct 23.0 L 22.5 L (39.0-53.0) % RDW 17.0 H 16.7 H (11.5-15.5) % Lymphocytes # (Manual) 0.82 L (1.0-4.8) k/uL Potassium (3.5-5.1) mmol/L Chloride (98-107) mmol/L BUN (9-20) mg/dL Glucose (74-99) mg/dL Crossmatch See Detail 06/07/19 06/07/19 Range/Units 06:29 11:58 RBC 2.58 L (4.30-5.90) m/uL Hgb 7.6 L (13.0-17.5) gm/dL Hct 22.9 L (39.0-53.0) % RDW 17.0 H (11.5-15.5) % Lymphocytes # (Manual) (1.0-4.8) k/uL Potassium 3.4 L (3.5-5.1) mmol/L Chloride 108 H (98-107) mmol/L BUN 23 H (9-20) mg/dL Glucose 106 H (74-99) mg/dL Crossmatch Microbiology - Last 24 Hours (Table) 06/04/19 00:09 Urine Culture - Final Urine,Catheterized Enterococcus faecalis Pseudomonas aeruginosa Escherichia coli Assessment and Plan Plan: #1. Persistent epistaxis, with a blood loss anemia and hypotension, recovered. The coagulopathy was reversed. The nostrils were packed by ENT. She is hemodynamically stable with a hemoglobin of 7.6. #2. ESBL E. coli bacteremia, currently on IV Invanz. The blood culture and the urine culture were both positive. Noted the urine cultures positive for Enterococcus faecalis and E. coli and Pseudomonas. #2. recurrent urine tract infection with gram-negative bacteria. The patient's been infected with pseudomonas in the past and currently he is suspected to have ESBL producing E. coli currently on IV Invanz. Urine culture this admission was positive for enterococcus, pseudomonas #4. limited pulmonary atelectatic changes. Cough and mechanism is weak. No overt pneumonia. This is obviously an ongoing concern as the patient has a weak cough and mechanism and he is currently receiving enteral feeding for nutritional support and is a good set up for aspiration and even custodial associated pneumonias. Nevertheless, on today's evaluation there is no clear evidence and the patient is currently on room air #5. advanced multiple sclerosis with cognitive impairments and the patient is nonverbal and the patient has muscle atrophy, rigidity, urinary or bowel incontinence, and the patient is bedridden #6. trigeminal neuralgia #7. history of depression #8. previous history of upper extremity DVT #9. hypertension Plan Continue IV Invanz. Aspiration precautions. Continue enteral feeding for nutritional support. Keep thepacking. Hold the Coumadin. The rationale for this and to coagulation was not clear to me. The patient was given this for upper extremity DVT. I do not think we need anticoagulation in the future. I am going to discuss with the medical team. She had the sepsis and the bacteremia with E. coli with IV Invanz. We'll continue to follow.
[2019-06-07] MEDS: ERTAPENEM 1 GM in SODIUM CHLORIDE 0.9% 50 ML IVPB SCH (16:18)
[2019-06-07 18:21] LABS: Anisocytosis Slight; HCT 22.7 % (39.0-53.0); HGB 7.5 gm/dL (13.0-17.5); MCH 29.3 pg (25.0-35.0); MCV 88.9 fL (80.0-100.0); Mean Platelet Volume 8.8; Platelet Count 269 k/uL (150-450); RBC 2.55 m/uL (4.30-5.90); WBC 9.2 k/uL (3.8-10.6)
[2019-06-07] MEDS: SODIUM CHLORIDE 0.9% 1,000 ML IV SCH (19:59)
[2019-06-07] MEDS: guaiFENesin SYRUP 100MG/5ML 200 MG/10 ML CUP PEG/G-TUBE PRN (23:10)
[2019-06-07 23:58] LABS: Anisocytosis Slight; HCT 22.4 % (39.0-53.0); HGB 7.5 gm/dL (13.0-17.5); MCH 29.7 pg (25.0-35.0); MCHC 33.7 g/dL (31.0-37.0); MCV 88.1 fL (80.0-100.0); Mean Platelet Volume 7.6; Platelet Count 245 k/uL (150-450); RBC 2.54 m/uL (4.30-5.90); RDW 17.1 % (11.5-15.5); WBC 8.1 k/uL (3.8-10.6)
[2019-06-08] MEDS: ACETAMINOPHEN ORAL SUSP 160 MG/5 ML CUP PEG/G-TUBE PRN ×3 (05:00→21:41)
[2019-06-08 06:15] LABS: Anisocytosis Slight; HCT 21.7 % (39.0-53.0); Hypochromasia Slight; MCH 29.1 pg (25.0-35.0); MCHC 32.4 g/dL (31.0-37.0); MCV 89.9 fL (80.0-100.0); Mean Platelet Volume 7.6; Platelet Count 304 k/uL (150-450); RBC 2.42 m/uL (4.30-5.90); RDW 17.1 % (11.5-15.5); WBC 9.7 k/uL (3.8-10.6)
[2019-06-08 06:21] LABS: African American GFR (CKD) >90 (>60 ml/min/1.73 sqM); Anion Gap 13 mmol/L; Blood Urea Nitrogen 17 mg/dL (9-20); Calcium 8.5 mg/dL (8.4-10.2); Carbon Dioxide 21 mmol/L (22-30); Chloride 109 mmol/L (98-107); Glucose 93 mg/dL (74-99); Potassium 3.6 mmol/L (3.5-5.1); Sodium 143 mmol/L (137-145)
[2019-06-08] MEDS: METOPROLOL TARTRATE 25 MG TAB PEG/G-TUBE SCH ×2 (09:39→20:09)
[2019-06-08] MEDS: PREGABALIN 50 MG CAP PEG/G-TUBE SCH (09:39)
[2019-06-08] MEDS: FUROSEMIDE 20 MG TAB PEG/G-TUBE SCH (09:39)
[2019-06-08] MEDS: BACLOFEN 10 MG TAB PEG/G-TUBE SCH ×3 (09:39→20:14)
[2019-06-08] MEDS: CHOLECALCIFEROL 1,000 UNIT TAB PEG/G-TUBE SCH (09:39)
[2019-06-08] MEDS: DOCUSATE ORAL SOLN 100 MG/10 ML CUP PEG/G-TUBE SCH ×2 (09:40→20:10)
[2019-06-08] MEDS: PANTOPRAZOLE SODIUM 40 MG GRANULE PKT PEG/G-TUBE SCH (09:42)
--- NOTE | 2019-06-08 10:29 | P.PN ---
Subjective Progress Note Date: 06/07/19 Principal diagnosis: Persistent epistaxis Gram-negative UTI/bacteremia 59-year-old male patient with known history of severe MS and the patient has been essentially bedridden and nonverbal with a chronic indwelling Stein catheter with previous history of recurrent UTIs including infections with gram- negative bacteria such as Pseudomonas. The patient is a [facility] resident. He has also had previous infections with ESBL producing E. coli in the urine. The patient came in yesterday because of interval worsening in mental status, fever, leukocytosis, suspected recurrent urine checked infection and possible pneumonia. He is currently on IV Invanz eating an ESBL producing E. coli. He has multiple contractures in lower extremities related to MS. 06/06/2019 Patient is seen and evaluated in ICU at bedside; patient is transferred to ICU for uncontrolled epistaxis which has been going on for over 24 hours; patient continues to bleed with nasal packing in place; patient became hypoxic and A team was called; patient is transferred to ICU and has orders for 1 unit of packed RBCs for a hemoglobin of 7; ENT is consulted and called to evaluate patient PATY Vital signs with temperature of 98.8, pulse 103, respiration 26 and blood pressure of 118/84; SpO2 of 96% on 5 L Labs show a white blood count of 6 points 5, hemoglobin 7.2 and hematocrit of 22 with platelet at 200; patient's INR was 3.4 yesterday and Coumadin has been on hold We will continue with nasal packing and order 1 unit of fresh frozen plasma to reverse Coumadin; monitor PT/INR, CBC and electrolytes closely 06/07/2019 patient is seen in ICU for a follow-up. The patient got moved to the intensive care unit yesterday because of epistaxis. Coagulopathy was reversed. Coumadin was stopped. The nostrils were packed bilaterally by ENT. Since then, there is no ongoing bleeding. The chest x-ray showed bilateral pulmonary infiltration, consistent aspiration. Patient was found to have Marked abdominal tenderness and distention; The patient underwent CT of abdomen and pelvis which showed a large left perinephric hematoma; surgery and urology service was consulted and patient is recommended to have continued blood transfusions if needed, continue to hold anticoagulation therapy, and monitor H&H closely Patient remains on IV Invanz for a E. coli urinary tract infection. This was an ESBL producing organism. The patient remains nonverbal. He is hemodynamically stable. He has a congested cough. Unable to bring up much sputum. Cough and mechanism is weak. He is receiving enteral feeding for nutritional support. Pulse ox is 90% on room air. Hemodynamically stable. Objective - Vital Signs Vital signs: Vital Signs Temp 97.3 F L 06/07/19 04:00 Pulse 103 H 06/07/19 07:00 Resp 24 06/07/19 07:00 BP 148/91 06/07/19 07:00 Pulse Ox 96 06/07/19 07:00 Intake & Output 06/06/19 06/07/19 06/07/19 18:59 06:59 18:59 Intake Total 504 1120 50 Output Total 125 675 100 Balance 379 445 -50 Weight 71.1 kg Intake: IV 500 50 Ertapenem 1 gm In Sodium 100 Chloride 0.9% 50 ml @ 100 mls/hr IVPB Q24H [facility] Rx# :[id number] Sodium Chloride 0.9% 1, 400 50 000 ml @ 50 mls/hr IV . Q20H [facility] Rx#:[id number] Oral 0 Tube Feeding 200 Blood Product 304 620 Ffp 24 Cpd Unit 304 [id number] Rc As-1 Unit 0 0 [id number] Rc Pheresis 2 As3 Unit 310 [id number] Output: Urine 125 625 100 Stool 50 Other: Voiding Method Indwelling Catheter Indwelling Catheter # Voids 50 - Exam GENERAL: Patient is nonverbal at baseline, and has contractures in his extr emities HEENT: Pupils are round and equally reacting to light. EOMI. No scleral icterus. No conjunctival pallor. Normocephalic, atraumatic. No pharyngeal erythema. No thyromegaly. CARDIOVASCULAR: S1 and S2 present. No murmurs, rubs, or gallops. PULMONARY: Chest is clear to auscultation, no wheezing or crackles. -ABDOMEN: Soft, nontender, nondistended, normoactive bowel sounds. No palpable organomegaly. PEG tube is in place MUSCULOSKELETAL: No joint swelling or deformity. EXTREMITIES: No cyanosis, clubbing, or pedal edema. NEUROLOGICAL: Gross neurological examination did not reveal any focal deficits. SKIN: No rashes. - Labs CBC & Chem 7: 06/08/19 05:52 06/08/19 05:52 Labs: Abnormal Lab Results - Last 24 Hours (Table) 06/06/19 06/06/19 06/06/19 Range/Units 09:52 10:42 12:04 RBC 2.55 L (4.30-5.90) m/uL Hgb 7.2 L (13.0-17.5) gm/dL Hct 22.0 L (39.0-53.0) % RDW 17.1 H (11.5-15.5) % Potassium (3.5-5.1) mmol/L Chloride (98-107) mmol/L BUN (9-20) mg/dL Glucose (74-99) mg/dL POC Glucose (mg/dL) 146 H (75-99) mg/dL Urine Protein 2+ H (Negative) Urine Blood Moderate H (Negative) Ur Leukocyte Esterase Small H (Negative) Urine RBC >182 H (0-5) /hpf Urine WBC 7 H (0-5) /hpf Urine Mucus Rare H (None) /hpf Crossmatch 06/06/19 06/07/19 06/07/19 Range/Units 13:00 00:15 06:29 RBC 2.62 L 2.53 L (4.30-5.90) m/uL Hgb 7.4 L 7.5 L (13.0-17.5) gm/dL Hct 23.0 L 22.5 L (39.0-53.0) % RDW 17.0 H 16.7 H (11.5-15.5) % Potassium (3.5-5.1) mmol/L Chloride (98-107) mmol/L BUN (9-20) mg/dL Glucose (74-99) mg/dL POC Glucose (mg/dL) (75-99) mg/dL Urine Protein (Negative) Urine Blood (Negative) Ur Leukocyte Esterase (Negative) Urine RBC (0-5) /hpf Urine WBC (0-5) /hpf Urine Mucus (None) /hpf Crossmatch See Detail 06/07/19 Range/Units 06:29 RBC (4.30-5.90) m/uL Hgb (13.0-17.5) gm/dL Hct (39.0-53.0) % RDW (11.5-15.5) % Potassium 3.4 L (3.5-5.1) mmol/L Chloride 108 H (98-107) mmol/L BUN 23 H (9-20) mg/dL Glucose 106 H (74-99) mg/dL POC Glucose (mg/dL) (75-99) mg/dL Urine Protein (Negative) Urine Blood (Negative) Ur Leukocyte Esterase (Negative) Urine RBC (0-5) /hpf Urine WBC (0-5) /hpf Urine Mucus (None) /hpf Crossmatch Microbiology - Last 24 Hours (Table) 06/04/19 00:09 Urine Culture - Preliminary Urine,Catheterized Enterococcus faecalis Pseudomonas aeruginosa Gram Neg Bacilli Assessment and Plan Assessment: Recurrent epistaxis; as above Systemic inflammatory response with leukocytosis, tachycardia and tachypnea. blood septicemia and Sepsis secondary to UTI and possible pneumonia Advanced MS Dysarthria and dysphagia, status post PEG placement patient is nonverbal at baseline Period of unresponsiveness, neurologist evaluated the patient and recommended MRI of the brain History of DVT Hypertension History of pneumonia Neurogenic bladder Bowel incontinence, chronic bedbound at baseline Plan: Continue with IV fluids, continue with IV antibiotics as per ID recommendation. Currently he is on ertapenem. Cardiology consult is appreciated, they recommen ded to continue with medical therapy. Continue with Coumadin and follow up INR. Neurology consult for periods of unresponsiveness and recommended MRI of the pain when patient is stable. External care team were consulted. Labs and medication were reviewed.. Continue same treatment. Continue with symptomatic treatment. Resume home medication. Monitor lytes and vitals. DVT and GI prophylaxis. Further recommendations of the clinical course of the patient DVT prophylaxis: On warfarin GI Prophylaxis: Protonix Prognosis is guarded Time with Patient: Greater than 30
--- NOTE | 2019-06-08 10:33 | P.PN ---
Progress Note - Text Progress Note Date: 06/08/19 The patient remains stable. His hemoglobin is 7.0. He shows no further sign of bleeding. The patient's perinephric hematoma is being managed by the urologist.
[2019-06-08] MEDS: AMANTADINE HCL 100 MG/10 ML CUP PEG/G-TUBE SCH (11:39)
--- NOTE | 2019-06-08 12:02 | P.PN ---
Subjective Progress Note Date: 06/08/19 59-year-old male patient with known history of severe MS and the patient has been essentially bedridden and nonverbal with a chronic indwelling Stein catheter with previous history of recurrent UTIs including infections with gram- negative bacteria such as Pseudomonas. The patient is a [facility] resident. He has also had previous infections with ESBL producing E. coli in the urine. The patient came in yesterday because of interval worsening in mental status, fever, leukocytosis, suspected recurrent urine checked infection and I was asked to evaluate this patient for possible pneumonia. He is currently on room air. His resting comfortably. His enteral feeding for nutritional support. He does not communicate. He does not look to be tachypneic. He has a decent cough and he has a congested cough. It seems that he has some upper airway secretions. Chest x-ray shows some limited atelectatic changes in lung bases bilaterally. No reported aspiration. He is currently on IV Invanz eating an ESBL producing E. coli. Upon inspection, the patient seems to be quite emaciated and cachect ic. He has multiple contractures in lower extremities related to MS. As stated, is nonverbal. He grimaces to painful stimulation. On 06/06/2019 patient has been transferred to the intensive care unit, apparently rapid response team was called for concern of hypotension, patient was transiently hypotensive, with a blood pressure of 79/52, developed a nosebleed, patient's hemoglobin went down from 10.4-7.9 on this morning's labs, distant epistaxis, INR today is 3.4, 1 unit of blood has been ordered. Patient is currently not intensive care unit, apparently the nosebleed had stopped initially, however it resumed, ENT service has been consulted, but has not been in to evaluate the patient yet, hemodynamically patient appears to be stable, no additional fluids were given, the patient is slightly tachycardic, current blood pressure is 118/84, patient is afebrile, currently the oxygen cannula is off, but the patient is maintaining oxygenation of 96%. We will give the patient dose of vitamin K as well, patient is on Coumadin for history of DVT, and a baby aspirin, which we will hold. No respiratory difficulty right now, head the bed is up 60 degrees. On 06/07/2019 I'm seeing this patient for a follow-up. The patient got moved to the intensive care unit yesterday because of epistaxis. Coagulopathy was reversed. Coumadin was stopped. The nostrils were packed bilaterally by ENT. Since then, there is no ongoing bleeding. The chest x-ray showed bilateral pulmonary infiltration, consistent aspiration. The patient remains on IV Invanz for a E. coli urinary tract infection. This was an ESBL producing organism. The patient remains nonverbal. I think he comprehends and he understands when things are explained to him. He is profoundly weak. He is bedridden. His nonambulatory. He is hemodynamically stable. He has a congested cough. Unable to bring up much sputum. Cough and mechanism is weak. He is receiving enteral feeding for nutritional support. Pulse ox is 90% on room air. Hemodynamically stable. On 06/08/2019, the patient still packed and there is no signs of epistaxis. Hemoglobin stable. He is awake and alert. Still on IV antibiotics with Invanz regarding an E. coli UTI. This is an ESBL producing organism. He comprehends however he cannot move and he cannot talk related to his advanced multiple sclerosis. Hemodynamically stable. No other significant events for now. Objective - Vital Signs Vital signs: Vital Signs Temp 97.9 F 06/08/19 08:00 Pulse 96 06/08/19 08:00 Resp 26 H 06/08/19 08:00 BP 138/89 06/08/19 08:00 Pulse Ox 97 06/08/19 08:00 Intake & Output 06/07/19 06/08/19 06/08/19 18:59 06:59 18:59 Intake Total 610 810 100 Output Total 2100 780 200 Balance -1490 30 -100 Weight 70.3 kg 71.6 kg Intake: IV 550 750 Ertapenem 1 gm In Sodium 50 Chloride 0.9% 50 ml @ 100 mls/hr IVPB Q24H [facility] Rx# :[id number] Sodium Chloride 0.9% 1, 500 750 000 ml @ 50 mls/hr IV . Q20H [facility] Rx#:[id number] Tube Feeding 100 Other 60 60 Output: Urine 0 780 200 Stool 50 Other: Voiding Method Indwelling Catheter Indwelling Catheter Indwelling Catheter # Voids 50 - Exam GENERAL EXAM: Alert, pleasant, 59-year-old white male, sitting up high in bed, at least 60, oxygen off, but pulse ox is 96%, is having persistent nosebleed, comfortable in no apparent distress. Patient has chronic contractures of extremities, he is cachectic, alert, but he is nonverbal, the patient has pack ing in both nostrils for control of epistaxis. HEAD: Normocephalic/atraumatic. EYES: Normal reaction of pupils, equal size. Conjunctiva pink, sclera white. NOSE: Clear with pink turbinates. THROAT: No erythema or exudates. NECK: No masses, no JVD, no thyroid enlargement, no adenopathy. The nostrils are packed bilaterally for epistaxis. CHEST: No chest wall deformity. Symmetrical expansion. LUNGS: Equal air entry with no crackles, wheeze, rhonchi or dullness. CVS: Regular rate and rhythm, normal S1 and S2, no gallops, no murmurs, no rubs ABDOMEN: Soft, nontender. No hepatosplenomegaly, normal bowel sounds, no guarding or rigidity. PEG tube is in place site is clean dry and intact EXTREMITIES: No clubbing, no edema, no cyanosis, 2+ pulses and upper and lower extremities. MUSCULOSKELETAL: Muscle strength and tone normal. Chronic foot drops, muscle rigidity bilaterally, chronic contractures SPINE: No scoliosis or deformity SKIN: No rashes CENTRAL NERVOUS SYSTEM: Alert, nonverbal. No focal deficits, tone is normal in all 4 extremities. - Labs CBC & Chem 7: 06/08/19 05:52 06/08/19 05:52 Labs: Abnormal Lab Results - Last 24 Hours (Table) 06/07/19 06/07/19 06/07/19 Range/Units 11:58 17:43 23:41 RBC 2.58 L 2.55 L 2.54 L (4.30-5.90) m/uL Hgb 7.6 L 7.5 L 7.5 L (13.0-17.5) gm/dL Hct 22.9 L 22.7 L 22.4 L (39.0-53.0) % RDW 17.0 H 17.0 H 17.1 H (11.5-15.5) % Chloride (98-107) mmol/L Carbon Dioxide (22-30) mmol/L 06/08/19 06/08/19 Range/Units 05:52 05:52 RBC 2.42 L (4.30-5.90) m/uL Hgb 7.0 L (13.0-17.5) gm/dL Hct 21.7 L (39.0-53.0) % RDW 17.1 H (11.5-15.5) % Chloride 109 H (98-107) mmol/L Carbon Dioxide 21 L (22-30) mmol/L Microbiology - Last 24 Hours (Table) 06/04/19 00:09 Urine Culture - Final Urine,Catheterized Enterococcus faecalis Pseudomonas aeruginosa Escherichia coli Assessment and Plan Plan: #1. Persistent epistaxis, with a blood loss anemia and hypotension, recovered. The coagulopathy was reversed. The nostrils were packed by ENT. She is hemodynamically stable with a hemoglobin of 7.0. #2. ESBL E. coli bacteremia, currently on IV Invanz. The blood culture and the urine culture were both positive. Noted the urine cultures positive for Enterococcus faecalis and E. coli and Pseudomonas. #2. recurrent urine tract infection with gram-negative bacteria. The patient's been infected with pseudomonas in the past and currently he is suspected to have ESBL producing E. coli currently on IV Invanz. Urine culture this admission was positive for enterococcus, pseudomonas #4. limited pulmonary atelectatic changes. Cough and mechanism is weak. No overt pneumonia. This is obviously an ongoing concern as the patient has a weak cough and mechanism and he is currently receiving enteral feeding for nutritional support and is a good set up for aspiration and even [facility] associated pneumonias. Nevertheless, on today's evaluation there is no clear evidence and the patient is currently on room air #5. advanced multiple sclerosis with cognitive impairments and the patient is nonverbal and the patient has muscle atrophy, rigidity, urinary or bowel incontinence, and the patient is bedridden #6. trigeminal neuralgia #7. history of depression #8. previous history of upper extremity DVT #9. hypertension Plan Continue IV Invanz. Aspiration precautions. Enteral feeding for nutritional support. Compression devices lower extremity regarding DVT prophylaxis. The packing from the nose as will be taken off either today or tomorrow by ENT. His outpatient medication of been all resumed. He is on IV Invanz. IV fluids with normal state rate of 50 mL an hour. We'll continue to follow. Can be chest at the medical surgical floor.
[2019-06-08 12:11] LABS: Anisocytosis Slight; HCT 23.5 % (39.0-53.0); HGB 7.7 gm/dL (13.0-17.5); MCH 29.6 pg (25.0-35.0); MCHC 32.8 g/dL (31.0-37.0); MCV 90.3 fL (80.0-100.0); Mean Platelet Volume 8.6; Platelet Count 337 k/uL (150-450); RBC 2.61 m/uL (4.30-5.90); RDW 17.3 % (11.5-15.5); WBC 10.5 k/uL (3.8-10.6)
[2019-06-08] MEDS ORDERED: diphenhydrAMINE ELIXIR 25 MG/10 ML CUP PEG/G-TUBE PRN (13:37)
--- NOTE | 2019-06-08 13:46 | P.PN ---
Progress Note - Text Progress Note Date: 06/08/19 Uri chart reviewed Patient hgb stable, vital signs WNL this am -Ok to have diet -daily hgb checks -Keep Bed rest -Continue to hold anticogulation
[2019-06-08] MEDS: ERTAPENEM 1 GM in SODIUM CHLORIDE 0.9% 50 ML IVPB SCH (15:05)
[2019-06-08] MEDS: SODIUM CHLORIDE 0.9% 1,000 ML IV SCH (15:05)
--- NOTE | 2019-06-08 15:17 | PN ---
PROGRESS NOTE CHIEF COMPLAINT: Recheck. HISTORY OF PRESENT ILLNESS: Mr. Marvin had a nosebleed causing hypovolemia, blood-loss anemia. The patient has done well over the last few days with nasal packing and nasal packing is to be removed today. PHYSICAL EXAMINATION: Vital signs are stable. Patient is afebrile. Head and face are normocephalic. Face is symmetric. Ears auricles are well formed. Canals are clear. Nose is with packing, which has been removed. Mouth and throat no blood is seen. Neck is unremarkable. Contractions are noted. IMPRESSIONS: Blood loss anemia secondary to epistaxis. PLAN OF TREATMENT: Nasal packing has been removed. The patient tolerated this well and the patient is to follow up in the office after discharge if any problems should arise. Again, normal nasal bleeding was seen after pack removal. MMODL / IJN: [id number] /
--- NOTE | 2019-06-08 16:13 | P.PN ---
Subjective Progress Note Date: 06/08/19 Principal diagnosis: Persistent epistaxis Gram-negative UTI/bacteremia 59-year-old male patient with known history of severe MS and the patient has been essentially bedridden and nonverbal with a chronic indwelling Stein catheter with previous history of recurrent UTIs including infections with gram- negative bacteria such as Pseudomonas. The patient is a care home resident. He has also had previous infections with ESBL producing E. coli in the urine. The patient came in yesterday because of interval worsening in mental status, fever, leukocytosis, suspected recurrent urine checked infection and possible pneumonia. He is currently on IV Invanz eating an ESBL producing E. coli. He has multiple contractures in lower extremities related to MS. 06/06/2019 Patient is seen and evaluated in ICU at bedside; patient is transferred to ICU for uncontrolled epistaxis which has been going on for over 24 hours; patient continues to bleed with nasal packing in place; patient became hypoxic and A team was called; patient is transferred to ICU and has orders for 1 unit of packed RBCs for a hemoglobin of 7; ENT is consulted and called to evaluate patient PATY Vital signs with temperature of 98.8, pulse 103, respiration 26 and blood pressure of 118/84; SpO2 of 96% on 5 L Labs show a white blood count of 6 points 5, hemoglobin 7.2 and hematocrit of 22 with platelet at 200; patient's INR was 3.4 yesterday and Coumadin has been on hold We will continue with nasal packing and order 1 unit of fresh frozen plasma to reverse Coumadin; monitor PT/INR, CBC and electrolytes closely 06/07/2019 patient is seen in ICU for a follow-up. The patient got moved to the intensive care unit yesterday because of epistaxis. Coagulopathy was reversed. Coumadin was stopped. The nostrils were packed bilaterally by ENT. Since then, there is no ongoing bleeding. The chest x-ray showed bilateral pulmonary infiltration, consistent aspiration. Patient was found to have Marked abdominal tenderness and distention; The patient underwent CT of abdomen and pelvis which showed a large left perinephric hematoma; surgery and urology service was consulted and patient is recommended to have continued blood transfusions if needed, continue to hold anticoagulation therapy, and monitor H&H closely Patient remains on IV Invanz for a E. coli urinary tract infection. This was an ESBL producing organism. The patient remains nonverbal. He is hemodynamically stable. He has a congested cough. Unable to bring up much sputum. Cough and mechanism is weak. He is receiving enteral feeding for nutritional support. Pulse ox is 90% on room air. Hemodynamically stable. 06/08/2019 Patient is seen and evaluated in room at bedside; family members are also present in the room; according to nursing staff patient has been complaining of pain along left jaw; patient has been using [place] and according to the family patient had been responding better to Neurontin; we will discontinue Lyrica and restart patient on Neurontin 300 mg 3 times a day Epistaxis is under control and nasal packing has been removed; hemoglobin remained stable at 7.0 patient remains on IV Invanz for E. coli UTI Patient has been restarted on tube feeding and is tolerating well Objective - Vital Signs Vital signs: Vital Signs Temp 97.9 F 06/08/19 08:00 Pulse 96 06/08/19 08:00 Resp 26 H 06/08/19 08:00 BP 138/89 06/08/19 08:00 Pulse Ox 97 06/08/19 08:00 Intake & Output 06/07/19 06/08/19 06/08/19 18:59 06:59 18:59 Intake Total 610 810 Output Total 2100 780 200 Balance -1490 30 -200 Weight 70.3 kg Intake: IV 550 750 Ertapenem 1 gm In Sodium 50 Chloride 0.9% 50 ml @ 100 mls/hr IVPB Q24H [facility] Rx# :[id number] Sodium Chloride 0.9% 1, 500 750 000 ml @ 50 mls/hr IV . Q20H [facility] Rx#:[id number] Other 60 60 Output: Urine 2050 780 200 Stool 50 Other: Voiding Method Indwelling Catheter Indwelling Catheter Indwelling Catheter # Voids 50 - Exam GENERAL: Patient is nonverbal at baseline, and has contractures in his extremities HEENT: Pupils are round and equally reacting to light. EOMI. No scleral icterus. No conjunctival pallor. Normocephalic, atraumatic. No pharyngeal erythema. No thyromegaly. CARDIOVASCULAR: S1 and S2 present. No murmurs, rubs, or gallops. PULMONARY: Chest is clear to auscultation, no wheezing or crackles. -ABDOMEN: Soft, nontender, nondistended, normoactive bowel sounds. No palpable organomegaly. PEG tube is in place MUSCULOSKELETAL: No joint swelling or deformity. EXTREMITIES: No cyanosis, clubbing, or pedal edema. NEUROLOGICAL: Gross neurological examination did not reveal any focal deficits. SKIN: No rashes. - Labs CBC & Chem 7: 06/08/19 10:56 06/08/19 05:52 Labs: Abnormal Lab Results - Last 24 Hours (Table) 06/07/19 06/07/19 06/07/19 Range/Units 11:58 17:43 23:41 RBC 2.58 L 2.55 L 2.54 L (4.30-5.90) m/uL Hgb 7.6 L 7.5 L 7.5 L (13.0-17.5) gm/dL Hct 22.9 L 22.7 L 22.4 L (39.0-53.0) % RDW 17.0 H 17.0 H 17.1 H (11.5-15.5) % Chloride (98-107) mmol/L Carbon Dioxide (22-30) mmol/L 06/08/19 06/08/19 Range/Units 05:52 05:52 RBC 2.42 L (4.30-5.90) m/uL Hgb 7.0 L (13.0-17.5) gm/dL Hct 21.7 L (39.0-53.0) % RDW 17.1 H (11.5-15.5) % Chloride 109 H (98-107) mmol/L Carbon Dioxide 21 L (22-30) mmol/L Microbiology - Last 24 Hours (Table) 06/04/19 00:09 Urine Culture - Final Urine,Catheterized Enterococcus faecalis Pseudomonas aeruginosa Escherichia coli Assessment and Plan Assessment: Recurrent epistaxis; as above Systemic inflammatory response with leukocytosis, tachycardia and tachypnea. blood septicemia and Sepsis secondary to UTI and possible pneumonia Advanced MS Dysarthria and dysphagia, status post PEG placement patient is nonverbal at baseline Period of unresponsiveness, neurologist evaluated the patient and recommended MRI of the brain History of DVT Hypertension History of pneumonia Neurogenic bladder Bowel incontinence, chronic bedbound at baseline Plan: Continue with IV fluids, continue with IV antibiotics as per ID recommendation. Currently he is on ertapenem. Cardiology consult is appreciated, they recommended to continue with medical therapy. Continue with Coumadin and follow up INR. Neurology consult for periods of unresponsiveness and recommended MRI of the pain when patient is stable. External care team were consulted. Labs and medication were reviewed.. Continue same treatment. Continue with symptomatic treatment. Resume home medication. Monitor lytes and vitals. DVT and GI prophylaxis. Further recommendations of the clinical course of the patient DVT prophylaxis: On warfarin GI Prophylaxis: Protonix Prognosis is guarded Time with Patient: Greater than 30
[2019-06-08] MEDS: GABAPENTIN 100 MG CAP PO SCH ×2 (18:52→21:41)
[2019-06-09] MEDS: AMANTADINE HCL 100 MG/10 ML CUP PEG/G-TUBE SCH ×3 (01:01→23:33)
--- NOTE | 2019-06-09 01:24 | PN ---
PROGRESS NOTE DATE OF SERVICE: 06/08/2019. REASON FOR FOLLOWUP: ESBL E coli bacteremia and UTI. INTERVAL HISTORY: The patient is currently afebrile. The patient has been breathing comfortably, seemed to have a problem with nasal bleed. The packing was removed. The patient remains to be lethargic but in no distress. No nausea, vomiting or diarrhea reported by the nursing staff. PHYSICAL EXAMINATION: On examination, blood pressure is 146/96, pulse of 101, temperature 99.1. He is 94% on 2 L nasal cannula. General description is a middle-aged male lying in bed in no distress. Respiratory system: Unlabored breathing. Coarse breath sounds in the bases present. No wheeze. Heart S1, S2. Regular rate and rhythm. Abdomen soft. No tenderness. LABS: Hemoglobin 7.7, white count 10.5. BUN of 17, creatinine 0.67. DIAGNOSTIC IMPRESSION AND PLAN: Patient with ESBL E coli bacteremia secondary to urinary source. The patient urine did grow other pathogen, but clinically ESBL is main pathogen as the patient clinically responding to the Invanz with resolution of his fever. Repeat urine culture was ordered, unfortunately not done. Will be ordered again today. Keep the patient on Invanz and monitor his clinical course closely. MMODL / IJN: [id number] /
[2019-06-09] MEDS: ACETAMINOPHEN ORAL SUSP 160 MG/5 ML CUP PEG/G-TUBE PRN (04:01)
[2019-06-09] MEDS: guaiFENesin SYRUP 100MG/5ML 200 MG/10 ML CUP PEG/G-TUBE PRN ×3 (04:01→17:52)
[2019-06-09 05:39] LABS: Anisocytosis Slight; Basophils % (A) 0 %; Eosinophils # (A) 0.2 k/uL (0-0.7); Eosinophils % (A) 2 %; HCT 22.1 % (39.0-53.0); HGB 7.2 gm/dL (13.0-17.5); Lymphocytes % (A) 11 %; MCH 28.9 pg (25.0-35.0); MCHC 32.5 g/dL (31.0-37.0); MCV 88.9 fL (80.0-100.0); Mean Platelet Volume 8.1; Monocytes # (A) 0.7 k/uL (0-1.0); Monocytes % (A) 7 %; Neutrophils # (A) 7.6 k/uL (1.3-7.7); Neutrophils % (A) 77 %; Platelet Count 441 k/uL (150-450); RBC 2.48 m/uL (4.30-5.90); RDW 17.3 % (11.5-15.5); WBC 9.8 k/uL (3.8-10.6)
[2019-06-09 05:54] LABS: African American GFR (CKD) >90 (>60 ml/min/1.73 sqM); Anion Gap 10 mmol/L; Blood Urea Nitrogen 15 mg/dL (9-20); Calcium 8.3 mg/dL (8.4-10.2); Carbon Dioxide 26 mmol/L (22-30); Chloride 110 mmol/L (98-107); Glucose 145 mg/dL (74-99); Potassium 3.3 mmol/L (3.5-5.1); Sodium 146 mmol/L (137-145)
[2019-06-09] MEDS: POTASSIUM BICARBONATE/CIT AC 20 MEQ TABLET.EFF NG-TUBE SCH ×2 (06:28→09:26)
[2019-06-09] MEDS ORDERED: LORazepam 1 MG TAB PO STA (08:42)
[2019-06-09] MEDS: METOPROLOL TARTRATE 25 MG TAB PEG/G-TUBE SCH ×2 (09:26→20:14)
[2019-06-09] MEDS: DOCUSATE ORAL SOLN 100 MG/10 ML CUP PEG/G-TUBE SCH ×2 (09:26→20:14)
[2019-06-09] MEDS: GABAPENTIN 100 MG CAP PO SCH ×3 (09:26→21:50)
[2019-06-09] MEDS: PANTOPRAZOLE 40 MG/10 ML VIAL IVP SCH (09:26)
[2019-06-09] MEDS: CHOLECALCIFEROL 1,000 UNIT TAB PEG/G-TUBE SCH (09:26)
[2019-06-09] MEDS: BACLOFEN 10 MG TAB PEG/G-TUBE SCH ×3 (09:26→21:50)
[2019-06-09] MEDS: FUROSEMIDE 20 MG TAB PEG/G-TUBE SCH (09:26)
--- NOTE | 2019-06-09 11:02 | P.PN ---
Subjective Progress Note Date: 06/09/19 CHIEF COMPLAINT: left perinephric hematoma HISTORY OF PRESENT ILLNESS: patient examined this morning at the bedside in the intensive care unit. Patient is currently on a Ventimask. He is lethargic but able to nod appropriately to questions. He denies abdominal pain. Denies nausea or vomiting. Tube feeding is infusing. Hemoglobin 7.2, down from 7.5. PHYSICAL EXAM: VITAL SIGNS: Reviewed. GENERAL: Well-developed in no acute distress. HEENT: No sclera icterus. Extraocular movements grossly intact. Moist buccal mucosa. Head is atraumatic, normocephalic. ABDOMEN: Soft. Nondistended. Nontender. PEG tube with tube feeding infusing. NEUROLOGIC: Lethargic. Easily arousable to verbal stimuli. Able to nod head appropriately to questions. Cranial nerves II through XII grossly intact. ASSESSMENT: 1. Left perinephric hematoma PLAN: 1. Continue to monitor hemoglobin. Transfuse for hemoglobin less than 7.0 2. Continue to hold anticoagulation 3. Urology following 4. Continue tube feedings as tolerated 5. No surgical intervention recommended. Continue conservative management. Nurse practitioner note has been reviewed by physician. Signing provider agrees with the documented findings, assessment, and plan of care. Objective - Vital Signs Vital signs: Vital Signs Temp 100.4 F H 06/09/19 08:00 Pulse 111 H 06/09/19 08:00 Resp 34 H 06/09/19 08:00 BP 141/80 06/09/19 08:00 Pulse Ox 87 L 06/09/19 08:00 Intake & Output 06/08/19 06/09/19 06/09/19 18:59 06:59 18:59 Intake Total 200 1060 Output Total 600 275 Balance -400 785 Weight 71.6 kg 71.4 kg 71.4 kg Intake: IV 400 Sodium Chloride 0.9% 1, 400 000 ml @ 50 mls/hr IV . Q20H [facility] Rx#:[id number] Tube Feeding 200 600 Other 60 Output: Urine 550 275 Stool 50 Other: Voiding Method Indwelling Catheter Indwelling Catheter - Labs CBC & Chem 7: 06/09/19 04:56 06/09/19 05:04 Labs: Abnormal Lab Results - Last 24 Hours (Table) 06/08/19 06/09/19 06/09/19 Range/Units 10:56 04:56 05:04 RBC 2.61 L 2.48 L (4.30-5.90) m/uL Hgb 7.7 L 7.2 L (13.0-17.5) gm/dL Hct 23.5 L 22.1 L (39.0-53.0) % RDW 17.3 H 17.3 H (11.5-15.5) % Sodium 146 H (137-145) mmol/L Potassium 3.3 L (3.5-5.1) mmol/L Chloride 110 H (98-107) mmol/L Glucose 145 H (74-99) mg/dL Calcium 8.3 L (8.4-10.2) mg/dL Microbiology - Last 24 Hours (Table) 06/08/19 20:30 Urine Culture - Preliminary Urine,Catheterized 06/04/19 00:09 Urine Culture - Final Urine,Catheterized Enterococcus faecalis Pseudomonas aeruginosa Escherichia coli
--- NOTE | 2019-06-09 12:33 | P.PN ---
Subjective Progress Note Date: 06/09/19 Principal diagnosis: Epistaxis and ESBL E. coli bacteremia, recurrent urinary tract infections 59-year-old male patient with known history of severe MS and the patient has been essentially bedridden and nonverbal with a chronic indwelling Stein catheter with previous history of recurrent UTIs including infections with gram- negative bacteria such as Pseudomonas. The patient is a assisted resident. He has also had previous infections with ESBL producing E. coli in the urine. The patient came in yesterday because of interval worsening in mental status, fever, leukocytosis, suspected recurrent urine checked infection and I was asked to evaluate this patient for possible pneumonia. He is currently on room air. His resting comfortably. His enteral feeding for nutritional support. He does not communicate. He does not look to be tachypneic. He has a decent cough and he has a congested cough. It seems that he has some upper airway secretions. Chest x-ray shows some limited atelectatic changes in lung bases bilaterally. No reported aspiration. He is currently on IV Invanz eating an ESBL producing E. coli. Upon inspection, the patient seems to be quite emaciated and cachectic. He has multiple contractures in lower extremities related to MS. As stated, is nonverbal. He grimaces to painful stimulation. On 06/06/2019 patient has been transferred to the intensive care unit, apparently rapid response team was called for concern of hypotension, patient was transiently hypotensive, with a blood pressure of 79/52, developed a nosebleed, patient's hemoglobin went down from 10.4-7.9 on this morning's labs, distant epistaxis, INR today is 3.4, 1 unit of blood has been ordered. Patient is currently not intensive care unit, apparently the nosebleed had stopped initially, however it resumed, ENT service has been consulted, but has not been in to evaluate the patient yet, hemodynamically patient appears to be stable, no additional fluids were given, the patient is slightly tachycardic, current blood pressure is 118/84, patient is afebrile, currently the oxygen cannula is off, but the patient is maintaining oxygenation of 96%. We will give the patient dose of vitamin K as well, patient is on Coumadin for history of DVT, and a baby aspirin, which we will hold. No respiratory difficulty right now, head the bed is up 60 degrees. On 06/07/2019 I'm seeing this patient for a follow-up. The patient got moved to the intensive care unit yesterday because of epistaxis. Coagulopathy was reversed. Coumadin was stopped. The nostrils were packed bilaterally by ENT. Since then, there is no ongoing bleeding. The chest x-ray showed bilateral pulmonary infiltration, consistent aspiration. The patient remains on IV Invanz for a E. coli urinary tract infection. This was an ESBL producing organism. The patient remains nonverbal. I think he comprehends and he understands when things are explained to him. He is profoundly weak. He is bedridden. His nonambulatory. He is hemodynamically stable. He has a congested cough. Unable to bring up much sputum. Cough and mechanism is weak. He is receiving enteral feeding for nutritional support. Pulse ox is 90% on room air. Hemodynamically stable. On 06/08/2019, the patient still packed and there is no signs of epistaxis. Hemoglobin stable. He is awake and alert. Still on IV antibiotics with Invanz regarding an E. coli UTI. This is an ESBL producing organism. He comprehends however he cannot move and he cannot talk related to his advanced multiple sclerosis. Hemodynamically stable. No other significant events for now. Reevaluated today on 06/09/2019, patient remains in the ICU, his nasal packing has been removed, and there is no signs of epistaxis. Patient is hemodynamically stable, remains on antibiotics for ESBL bacteremia, patient is aphasic, he has advanced multiple sclerosis. Labs were reviewed his potassium is a bit low at 3.3, being corrected as per protocol. Hemoglobin is 7.2 last chest x-ray from 06/07 showed perihilar infiltrates., Patient may have had some component of aspiration of blood during his episodes of epistaxis. Objective - Vital Signs Vital signs: Vital Signs Temp 100.4 F H 06/09/19 08:00 Pulse 111 H 06/09/19 08:00 Resp 34 H 06/09/19 08:00 BP 141/80 06/09/19 08:00 Pulse Ox 87 L 06/09/19 08:00 Intake & Output 06/08/19 06/09/19 06/09/19 18:59 06:59 18:59 Intake Total 200 1060 Output Total 600 275 Balance -400 785 Weight 71.6 kg 71.4 kg 71.4 kg Intake: IV 400 Sodium Chloride 0.9% 1, 400 000 ml @ 50 mls/hr IV . Q20H [facility] Rx#:[id number] Tube Feeding 200 600 Other 60 Output: Urine 550 275 Stool 50 Other: Voiding Method Indwelling Catheter Indwelling Catheter - Exam GENERAL EXAM: Revealed a 59-year-old white male in no distress, cachectic, chronically ill. And aphasic. HEAD: Normocephalic/atraumatic. HEENT: Evidence of old blood noted at the outer nasal mucosa, no nasal packings noted. Throat is clear. Moist mucous membranes. CHEST: Symmetrical chest expansion, minimal crackles at the bases no rhonchi and no wheezes. CVS: Regular rate and rhythm, normal S1 and S2, no gallops, no murmurs, no rubs ABDOMEN: Soft, nontender. No hepatosplenomegaly, normal bowel sounds, no guarding or rigidity. PEG tube is in place site is clean dry and intact EXTREMITIES: No cyanosis no clubbing no edema. Good pulses bilaterally. MUSCULOSKELETAL: Muscle strength and tone normal. Chronic foot drops, muscle rigidity bilaterally, chronic contractures Skin: No rashes. CENTRAL NERVOUS SYSTEM: Alert, nonverbal. No focal deficits, tone is normal in all 4 extremities. Patient is not verbal. - Labs CBC & Chem 7: 06/09/19 04:56 06/09/19 05:04 Labs: Abnormal Lab Results - Last 24 Hours (Table) 06/09/19 06/09/19 Range/Units 04:56 05:04 RBC 2.48 L (4.30-5.90) m/uL Hgb 7.2 L (13.0-17.5) gm/dL Hct 22.1 L (39.0-53.0) % RDW 17.3 H (11.5-15.5) % Sodium 146 H (137-145) mmol/L Potassium 3.3 L (3.5-5.1) mmol/L Chloride 110 H (98-107) mmol/L Glucose 145 H (74-99) mg/dL Calcium 8.3 L (8.4-10.2) mg/dL Microbiology - Last 24 Hours (Table) 06/08/19 20:30 Urine Culture - Preliminary Urine,Catheterized 06/04/19 00:09 Urine Culture - Final Urine,Catheterized Enterococcus faecalis Pseudomonas aeruginosa Escherichia coli Assessment and Plan Assessment: Impression: 1 persistent epistaxis, with hypotension and blood loss requiring 2 units of packed RBCs and 1 unit of fresh frozen plasma on admission. Presently his hemoglobin is 7.2. 2 ESBL E. coli bacteremia and positive urine cultures for Enterococcus faecalis, Pseudomonas, and E. coli. Presently on Invanz. 3 bilateral pneumonia, most likely aspiration related. Aspiration pneumonia. 4 advanced multiple sclerosis with cognitive impairment muscle atrophy and spasticity and rigidity as well as contractures. Patient is bedridden. 5 multiple comorbidities including hypertension, previous history of upper extremity DVT, history of depression, history of trigeminal neuralgia. Recommendation: Continue antibiotics, continue aspiration precaution, continue enteral feeding via PEG tube, continue compression devices for DVT prophylaxis, consider transferring the patient out of the ICU to a regular medical floor. Will follow. Time with Patient: Less than 30
[2019-06-09] MEDS: SODIUM CHLORIDE 0.9% 1,000 ML IV SCH (12:38)
--- NOTE | 2019-06-09 14:20 | P.PN ---
Subjective 59-year-old the female was admitted the for ESBL E. coli bacteremia recurrent urinary tract infection patient does have history of multiple sclerosis. Patient the urine cultures are positive for enterococcus Pseudomonas and E. coli. Patient is on Invanz. Continue to have fevers. There is perinephric hematoma on the left side and now there is a concern for abscess in that area because of which neurology was consulted as per infectious disease. Review of systems: Unable to obtain as patient doesn't talk much because of multiple sclerosis All inpatient medications were reviewed and appropriate changes in these medications as dictated in the interval history and assessment and plan. Objective - Vital Signs Vital signs: Vital Signs Temp 100.4 F H 06/09/19 08:00 Pulse 111 H 06/09/19 08:00 Resp 34 H 06/09/19 08:00 BP 141/80 06/09/19 08:00 Pulse Ox 87 L 06/09/19 08:00 Intake & Output 06/08/19 06/09/19 06/09/19 18:59 06:59 18:59 Intake Total 200 1060 100 Output Total 600 275 Balance -400 785 100 Weight 71.6 kg 71.4 kg 71.4 kg Intake: IV 400 Sodium Chloride 0.9% 1, 400 000 ml @ 50 mls/hr IV . Q20H [facility] Rx#:[id number] Tube Feeding 200 600 100 Other 60 Output: Urine 550 275 Stool 50 Other: Voiding Method Indwelling Catheter Indwelling Catheter Indwelling Catheter - Exam ENERAL EXAM: Revealed a 59-year-old white male in no distress, cachectic, chronically ill. And aphasic. HEAD: Normocephalic/atraumatic. HEENT: Evidence of old blood noted at the outer nasal mucosa, no nasal packings noted. Throat is clear. Moist mucous membranes. CHEST: Symmetrical chest expansion, minimal crackles at the bases no rhonchi and no wheezes. CVS: Regular rate and rhythm, normal S1 and S2, no gallops, no murmurs, no rubs ABDOMEN: Soft, nontender. No hepatosplenomegaly, normal bowel sounds, no guarding or rigidity. PEG tube is in place site is clean dry and intact EXTREMITIES: No cyanosis no clubbing no edema. Good pulses bilaterally. MUSCULOSKELETAL: Muscle strength and tone normal. Chronic foot drops, muscle rigidity bilaterally, chronic contractures Skin: No rashes. CENTRAL NERVOUS SYSTEM: Alert, nonverbal. No focal deficits, tone is normal in all 4 extremities. Patient is not verbal. - Labs CBC & Chem 7: 06/09/19 04:56 06/09/19 05:04 Labs: Abnormal Lab Results - Last 24 Hours (Table) 06/09/19 06/09/19 Range/Units 04:56 05:04 RBC 2.48 L (4.30-5.90) m/uL Hgb 7.2 L (13.0-17.5) gm/dL Hct 22.1 L (39.0-53.0) % RDW 17.3 H (11.5-15.5) % Sodium 146 H (137-145) mmol/L Potassium 3.3 L (3.5-5.1) mmol/L Chloride 110 H (98-107) mmol/L Glucose 145 H (74-99) mg/dL Calcium 8.3 L (8.4-10.2) mg/dL Microbiology - Last 24 Hours (Table) 06/08/19 20:30 Urine Culture - Preliminary Urine,Catheterized Assessment and Plan Plan: Sepsis and bacteremia with E. coli along with 2 polymicrobial positive UTI continue with Invanz patient can use to have symptoms urology consultation with for possibility of left to perinephric abscess although his was read as hematoma on the CAT scan. -Possible aspiration pneumonia -Epistaxis which resolved at this time believed to be secondary to coagulopathy -Multiple sclerosis with chronic debility spasticity rigidity and contractures for which supportive care -Hypertension -History of DVT -Acute respiratory failure with possible aspiration
[2019-06-09] MEDS: ACETAMINOPHEN ORAL SUSP (PEDS) 3,840 MG/120 ML BOTTLE PEG/G-TUBE PRN ×2 (15:40→23:34)
[2019-06-09] MEDS: ERTAPENEM 1 GM in SODIUM CHLORIDE 0.9% 50 ML IVPB SCH (15:44)
[2019-06-09] MEDS: LORazepam 1 MG TAB PO PRN (20:14)
--- NOTE | 2019-06-09 23:28 | PN ---
PROGRESS NOTE DATE OF SERVICE: 06/09/2019. REASON FOR FOLLOWUP: ESBL E coli bacteremia and UTI and possible renal abscess. INTERVAL HISTORY: The patient did have persistent fever. He is hemodynamically stable though. Not requiring any pressor support. He is unable to provide any history. No nausea, vomiting or diarrhea reported by the nursing staff. PHYSICAL EXAMINATION: Blood pressure is 130/98, with a pulse of 110, temperature of 99.8. He is 99% on a non- rebreather. General description is a middle-aged male lying in bed in no distress. Respiratory system: Unlabored breathing with decreased breath sounds in the bases. No wheeze. Heart S1, S2. Regular rate and rhythm. Abdomen soft, no tenderness. LABS: Hemoglobin 7.8, white count 9.8. BUN of 15, creatinine 0.67. DIAGNOSTIC IMPRESSION AND PLAN: Patient ESBL E coli urinary tract infection in this patient who did have persistent fever with concern for possible related to left-sided kidney hematoma versus an abscess. We will get a urology evaluation. Keep the patient on Invanz. Await for repeat cultures to finalize. Blood cultures will be repeated as well. Continue supportive care. MMODL / IJN: [id number] /
[2019-06-10] MEDS: LORazepam 1 MG TAB PO PRN ×3 (02:29→16:17)
[2019-06-10] MEDS: guaiFENesin SYRUP 100MG/5ML 200 MG/10 ML CUP PEG/G-TUBE PRN ×2 (02:29→16:17)
[2019-06-10] MEDS: SODIUM CHLORIDE 0.9% 1,000 ML IV SCH (08:50)
[2019-06-10] MEDS: BACLOFEN 10 MG TAB PEG/G-TUBE SCH ×3 (08:50→22:53)
[2019-06-10] MEDS: CHOLECALCIFEROL 1,000 UNIT TAB PEG/G-TUBE SCH (08:50)
[2019-06-10] MEDS: GABAPENTIN 100 MG CAP PO SCH ×3 (08:51→22:53)
[2019-06-10] MEDS: DOCUSATE ORAL SOLN 100 MG/10 ML CUP PEG/G-TUBE SCH ×2 (08:51→22:53)
[2019-06-10] MEDS: FUROSEMIDE 20 MG TAB PEG/G-TUBE SCH (08:51)
[2019-06-10] MEDS: METOPROLOL TARTRATE 25 MG TAB PEG/G-TUBE SCH ×2 (08:51→22:53)
[2019-06-10] MEDS: SCOPOLAMINE 1.5MG/72HR PATCH TRANSDERM SCH (08:52)
[2019-06-10] MEDS: PANTOPRAZOLE 40 MG/10 ML VIAL IVP SCH (08:52)
--- NOTE | 2019-06-10 09:31 | CDI ---
Documentation Clarification Form Date: 06/10/2019 9:07:53 AM From: Ayanna Pedraza RN, CCDS Admit Date: 06/04/2019 1:15:00 AM Patient Name: Chris Marvin Visit Number: [id number] Discharge Date: ATTENTION: The Clinical Documentation Specialists (CDI) and [facility] Coding Staff appreciate your assistance in clarifying documentation. Please respond to the clarification below the line at the bottom and electronically sign. The CDI & [facility] Coding staff will review the response and follow-up if needed. Please note: Queries are made part of the Legal Health Record. If you have any questions, please contact the author of this message via ITS. Dr. Nathan Yanez A diagnosis of blood loss anemia lacks specificity to accurately reflect your patients severity of condition and clarification is needed. History/Risk Factors: MS, UTI, Sepsis, DVT, Hypertension, Cognitive impairment Clinical indicators: 59-year-old female history of severe s present with chronic indwelling Stein catheter was diagnosis of ESBL UTI and sepsis. On 06/06/19 developed uncontrolled epistaxis Hemoglobin: 10.4, 7.9, 7.2 Hematocrit: 32.1 24.1 22.0 Treatment: 2 units of PRBCs transfused, monitoring CBC 1 Unit Fresh Frozen Plasma Hold Coumadin ENT consult Anterior/Posterior nasal packing In order to capture the severity of condition, please further clarify the type of anemia and etiology if known: Acute blood loss anemia Unable to determine Other, please specify (Last Revision: July 2017) Acute blood loss anemia MTDD
--- NOTE | 2019-06-10 12:01 | P.PN ---
Subjective Progress Note Date: 06/10/19 Principal diagnosis: Left Renal Hematoma Mr. Marvin is a 59-year-old male with history of multiple sclerosis. He is admitted to the hospital for a UTI. Urology is consulted for a perinephric hematoma. Patient underwent CT abdomen and pelvis which showed a large left perinephric hematoma. His hemoglobin initially dropped by 3 g, has been stable since then. Urology Was recounsulted due to concern of possible abscess due to intermittent fever. Objective - Vital Signs Vital signs: Vital Signs Temp 97.5 F L 06/10/19 08:00 Pulse 96 06/10/19 08:00 Resp 22 06/10/19 08:00 BP 125/72 06/10/19 08:00 Pulse Ox 100 06/10/19 08:00 Intake & Output 06/09/19 06/10/19 06/10/19 18:59 06:59 18:59 Intake Total 800 450 100 Output Total 1450 100 Balance -650 350 100 Weight 71.4 kg 72 kg Intake: IV 650 300 Ertapenem 1 gm In Sodium 50 300 Chloride 0.9% 50 ml @ 100 mls/hr IVPB Q24H [facility] Rx# :[id number] Sodium Chloride 0.9% 1, 600 000 ml @ 50 mls/hr IV . Q20H [facility] Rx#:[id number] Tube Feeding 150 150 100 Output: Urine 1400 100 Stool 50 Other: Voiding Method Indwelling Catheter Indwelling Catheter Indwelling Catheter - Constitutional General appearance: Present: no acute distress, thin - Gastrointestinal General gastrointestinal: Present: soft, tenderness (mild left flank ). Absent: rigid - Labs CBC & Chem 7: 06/09/19 04:56 06/09/19 19:08 Labs: Microbiology - Last 24 Hours (Table) 06/08/19 20:30 Urine Culture - Preliminary Urine,Catheterized Assessment and Plan Assessment: Mr. Marvin is a 59-year-old male admitted for UTI. Urology is counsulted for a large left perinephric hematoma. Urology Re-consulted due to patient continued intermittent fever Plan: -Patient CT and hgb drop is consistent with renal hematoma, CT abd/pelvis from 06/06 was reviewed there is no evidence of renal abscess no focal air pockets were identified within the hematoma. I would not recommend drainage of the hematoma at this time -Will need a repeat CT in one month to r/o renal mass as the cause of the renal hematoma -F/U in Urology Clinic in 2 months
[2019-06-10 12:19] LABS: Anisocytosis Slight; HCT 22.2 % (39.0-53.0); HGB 7.1 gm/dL (13.0-17.5); Hypochromasia Slight; MCH 28.4 pg (25.0-35.0); MCHC 31.8 g/dL (31.0-37.0); MCV 89.4 fL (80.0-100.0); Mean Platelet Volume 10.8; Platelet Count 382 k/uL (150-450); RBC 2.49 m/uL (4.30-5.90); RDW 17.6 % (11.5-15.5); WBC 14.2 k/uL (3.8-10.6)
--- NOTE | 2019-06-10 12:24 | P.PN ---
Subjective Progress Note Date: 06/10/19 CHIEF COMPLAINT: left perinephric hematoma HISTORY OF PRESENT ILLNESS: Patient examined this morning at the bedside in the intensive care unit. Patient is currently on a Ventimask. He is lethargic but able to nod appropriately to questions. He denies abdominal pain. Denies nausea or vomiting. Tube feeding is infusing. Hemoglobin 7.1. PHYSICAL EXAM: VITAL SIGNS: Reviewed. GENERAL: Well-developed in no acute distress. HEENT: No sclera icterus. Extraocular movements grossly intact. Moist buccal mucosa. Head is atraumatic, normocephalic. ABDOMEN: Soft. Nondistended. Nontender. PEG tube with tube feeding infusing. NEUROLOGIC: Lethargic. Easily arousable to verbal stimuli. Able to nod head appropriately to questions. Cranial nerves II through XII grossly intact. ASSESSMENT: 1. Left perinephric hematoma PLAN: 1. Continue to monitor hemoglobin. Transfuse for hemoglobin less than 7.0 2. Urology following 3. Continue tube feedings as tolerated 4. No surgical intervention recommended. Continue conservative management. 5. We will sign off. Please reconsult if needed. Nurse practitioner note has been reviewed by physician. Signing provider agrees with the documented findings, assessment, and plan of care. Objective - Vital Signs Vital signs: Vital Signs Temp 97.5 F L 06/10/19 08:00 Pulse 96 06/10/19 08:00 Resp 22 06/10/19 08:00 BP 125/72 06/10/19 08:00 Pulse Ox 100 06/10/19 08:00 Intake & Output 06/09/19 06/10/19 06/10/19 18:59 06:59 18:59 Intake Total 800 450 100 Output Total 1450 100 Balance -650 350 100 Weight 71.4 kg 72 kg Intake: IV 650 300 Ertapenem 1 gm In Sodium 50 300 Chloride 0.9% 50 ml @ 100 mls/hr IVPB Q24H [facility] Rx# :[id number] Sodium Chloride 0.9% 1, 600 000 ml @ 50 mls/hr IV . Q20H [facility] Rx#:[id number] Tube Feeding 150 150 100 Output: Urine 1400 100 Stool 50 Other: Voiding Method Indwelling Catheter Indwelling Catheter Indwelling Catheter - Labs CBC & Chem 7: 06/10/19 11:01 06/09/19 19:08 Labs: Abnormal Lab Results - Last 24 Hours (Table) 06/10/19 Range/Units 11:01 WBC 14.2 H (3.8-10.6) k/uL RBC 2.49 L (4.30-5.90) m/uL Hgb 7.1 L (13.0-17.5) gm/dL Hct 22.2 L (39.0-53.0) % RDW 17.6 H (11.5-15.5) % Microbiology - Last 24 Hours (Table) 06/08/19 20:30 Urine Culture - Final Urine,Catheterized
--- NOTE | 2019-06-10 12:50 | P.PN ---
Subjective Progress Note Date: 06/10/19 Principal diagnosis: Epistaxis and ESBL E. coli bacteremia, recurrent urinary tract infections 59-year-old male patient with known history of severe MS and the patient has been essentially bedridden and nonverbal with a chronic indwelling Stein catheter with previous history of recurrent UTIs including infections with gram- negative bacteria such as Pseudomonas. 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 He has also had previous infections with ESBL producing E. coli in the urine. The patient came in yesterday because of interval worsening in mental status, fever, leukocytosis, suspected recurrent urine checked infection and I was asked to evaluate this patient for possible pneumonia. He is currently on room air. His resting comfortably. His enteral feeding for nutritional support. He does not communicate. He does not look to be tachypneic. He has a decent cough and he has a congested cough. It seems that he has some upper airway secretions. Chest x-ray shows some limited atelectatic changes in lung bases bilaterally. No reported aspiration. He is currently on IV Invanz eating an ESBL producing E. coli. Upon inspection, the patient seems to be quite emaciated and cachectic. He has multiple contractures in lower extremities related to MS. As stated, is nonverbal. He grimaces to painful stimulation. On 06/06/2019 patient has been transferred to the intensive care unit, apparently rapid response team was called for concern of hypotension, patient was transiently hypotensive, with a blood pressure of 79/52, developed a nosebleed, patient's hemoglobin went down from 10.4-7.9 on this morning's labs, distant epistaxis, INR today is 3.4, 1 unit of blood has been ordered. Patient is currently not intensive care unit, apparently the nosebleed had stopped initially, however it resumed, ENT service has been consulted, but has not been in to evaluate the patient yet, hemodynamically patient appears to be stable, no additional fluids were given, the patient is slightly tachycardic, current blood pressure is 118/84, patient is afebrile, currently the oxygen cannula is off, but the patient is maintaining oxygenation of 96%. We will give the patient dose of vitamin K as well, patient is on Coumadin for history of DVT, and a baby aspirin, which we will hold. No respiratory difficulty right now, head the bed is up 60 degrees. On 06/07/2019 I'm seeing this patient for a follow-up. The patient got moved to the intensive care unit yesterday because of epistaxis. Coagulopathy was reversed. Coumadin was stopped. The nostrils were packed bilaterally by ENT. Since then, there is no ongoing bleeding. The chest x-ray showed bilateral pulmonary infiltration, consistent aspiration. The patient remains on IV Invanz for a E. coli urinary tract infection. This was an ESBL producing organism. The patient remains nonverbal. I think he comprehends and he understands when things are explained to him. He is profoundly weak. He is bedridden. His nonambulatory. He is hemodynamically stable. He has a congested cough. Unable to bring up much sputum. Cough and mechanism is weak. He is receiving enteral feeding for nutritional support. Pulse ox is 90% on room air. Hemodynamically stable. On 06/08/2019, the patient still packed and there is no signs of epistaxis. Hemoglobin stable. He is awake and alert. Still on IV antibiotics with Invanz regarding an E. coli UTI. This is an ESBL producing organism. He comprehends however he cannot move and he cannot talk related to his advanced multiple sclerosis. Hemodynamically stable. No other significant events for now. Reevaluated today on 06/09/2019, patient remains in the ICU, his nasal packing has been removed, and there is no signs of epistaxis. Patient is hemodynamically stable, remains on antibiotics for ESBL bacteremia, patient is aphasic, he has advanced multiple sclerosis. Labs were reviewed his potassium is a bit low at 3.3, being corrected as per protocol. Hemoglobin is 7.2 last chest x-ray from 06/07 showed perihilar infiltrates., Patient may have had some component of aspiration of blood during his episodes of epistaxis. Patient was reevaluated today on 06/10/2019, he is presently on overflow in the ICU, no further episodes of epistaxis. Hemodynamically stable. Remains on antibiotics for his ESBL E. coli bacteremia. Patient remains on Ventimask, he is nonverbal, continues to have a PEG tube in place. His last chest x-ray showed perihilar infiltrates consistent with possibly aspiration pneumonia or aspiration of blood from his epistaxis. Follow-up chest x-ray will be ordered to be done in a.m. Objective - Vital Signs Vital signs: Vital Signs Temp 98.9 F 06/10/19 12:00 Pulse 95 06/10/19 12:00 Resp 32 H 06/10/19 12:00 BP 125/72 06/10/19 12:00 Pulse Ox 94 L 06/10/19 12:00 Intake & Output 06/09/19 06/10/19 06/10/19 18:59 06:59 18:59 Intake Total 800 450 150 Output Total 1450 100 Balance -650 350 150 Weight 71.4 kg 72 kg Intake: IV 650 300 Ertapenem 1 gm In Sodium 50 300 Chloride 0.9% 50 ml @ 100 mls/hr IVPB Q24H [facility] Rx# :[id number] Sodium Chloride 0.9% 1, 600 000 ml @ 50 mls/hr IV . Q20H [facility] Rx#:[id number] Tube Feeding 150 150 150 Output: Urine 1400 100 Stool 50 Other: Voiding Method Indwelling Catheter Indwelling Catheter Indwelling Catheter - Exam GENERAL EXAM: Revealed a 59-year-old white male in no distress, cachectic, chronically ill. And aphasic. HEAD: Normocephalic/atraumatic. HEENT: Evidence of old blood noted at the outer nasal mucosa, no nasal packings noted. Throat is clear. Moist mucous membranes. CHEST: Symmetrical chest expansion, minimal crackles at the bases no rhonchi and no wheezes. CVS: Regular rate and rhythm, normal S1 and S2, no gallops, no murmurs, no rubs ABDOMEN: Soft, nontender. No hepatosplenomegaly, normal bowel sounds, no guarding or rigidity. PEG tube is in place site is clean dry and intact EXTREMITIES: No cyanosis no clubbing no edema. Good pulses bilaterally. MUSCULOSKELETAL: Muscle strength and tone normal. Chronic foot drops, muscle rigidity bilaterally, chronic contractures Skin: No rashes. CENTRAL NERVOUS SYSTEM: Alert, nonverbal. No focal deficits, tone is normal in all 4 extremities. Patient is not verbal. - Labs CBC & Chem 7: 06/10/19 11:01 06/09/19 19:08 Labs: Abnormal Lab Results - Last 24 Hours (Table) 06/10/19 Range/Units 11:01 WBC 14.2 H (3.8-10.6) k/uL RBC 2.49 L (4.30-5.90) m/uL Hgb 7.1 L (13.0-17.5) gm/dL Hct 22.2 L (39.0-53.0) % RDW 17.6 H (11.5-15.5) % Microbiology - Last 24 Hours (Table) 06/08/19 20:30 Urine Culture - Final Urine,Catheterized Assessment and Plan Assessment: Impression: 1 epistaxis, with hypotension and blood loss requiring 2 units of packed RBCs and 1 unit of fresh frozen plasma on admission. Presently his hemoglobin is stable at 7.1 and it was 7.2 yesterday. 2 ESBL E. coli bacteremia and positive urine cultures for Enterococcus faecalis, Pseudomonas, and E. coli. Presently on Invanz. 3 bilateral pneumonia, most likely aspiration related. Aspiration pneumonia. 4 advanced multiple sclerosis with cognitive impairment muscle atrophy and spasticity and rigidity as well as contractures. Patient is bedridden. 5 multiple comorbidities including hypertension, previous history of upper extr emity DVT, history of depression, history of trigeminal neuralgia. Recommendation: Continue antibiotics, continue aspiration precaution, continue enteral feeding via PEG tube, continue compression devices for DVT prophylaxis, we'll arrange for the patient be transferred to the ICU to a regular medical floor today, repeat chest x-ray in a.m., and possible discharge planning in the next 24 hours. Time with Patient: Less than 30
--- NOTE | 2019-06-10 12:57 | P.PN ---
Subjective 59-year-old the female was admitted the for ESBL E. coli bacteremia recurrent urinary tract infection patient does have history of multiple sclerosis. Patient the urine cultures are positive for enterococcus Pseudomonas and E. coli. Patient is on Invanz. Continue to have fevers. There is perinephric hematoma on the left side and now there is a concern for abscess in that area because of which neurology was consulted as per infectious disease. 06/10/2019 Patient went blood cell count went up to 14,000 patient fevers although resolved, urology will evaluate the patient. Review of systems: Unable to obtain as patient doesn't talk much because of multiple sclerosis All inpatient medications were reviewed and appropriate changes in these medications as dictated in the interval history and assessment and plan. Objective - Vital Signs Vital signs: Vital Signs Temp 98.9 F 06/10/19 12:00 Pulse 95 06/10/19 12:00 Resp 32 H 06/10/19 12:00 BP 125/72 06/10/19 12:00 Pulse Ox 94 L 06/10/19 12:00 Intake & Output 06/09/19 06/10/19 06/10/19 18:59 06:59 18:59 Intake Total 800 450 150 Output Total 1450 100 Balance -650 350 150 Weight 71.4 kg 72 kg Intake: IV 650 300 Ertapenem 1 gm In Sodium 50 300 Chloride 0.9% 50 ml @ 100 mls/hr IVPB Q24H [facility] Rx# :[id number] Sodium Chloride 0.9% 1, 600 000 ml @ 50 mls/hr IV . Q20H [facility] Rx#:[id number] Tube Feeding 150 150 150 Output: Urine 1400 100 Stool 50 Other: Voiding Method Indwelling Catheter Indwelling Catheter Indwelling Catheter - Exam ENERAL EXAM: Revealed a 59-year-old white male in no distress, cachectic, chronically ill. And aphasic. HEAD: Normocephalic/atraumatic. HEENT: Evidence of old blood noted at the outer nasal mucosa, no nasal packings noted. Throat is clear. Moist mucous membranes. CHEST: Symmetrical chest expansion, minimal crackles at the bases no rhonchi and no wheezes. CVS: Regular rate and rhythm, normal S1 and S2, no gallops, no murmurs, no rubs ABDOMEN: Soft, nontender. No hepatosplenomegaly, normal bowel sounds, no guarding or rigidity. PEG tube is in place site is clean dry and intact EXTREMITIES: No cyanosis no clubbing no edema. Good pulses bilaterally. MUSCULOSKELETAL: Muscle strength and tone normal. Chronic foot drops, muscle rigidity bilaterally, chronic contractures Skin: No rashes. CENTRAL NERVOUS SYSTEM: Alert, nonverbal. No focal deficits, tone is normal in all 4 extremities. Patient is not verbal. - Labs CBC & Chem 7: 06/10/19 11:01 06/09/19 19:08 Labs: Abnormal Lab Results - Last 24 Hours (Table) 06/10/19 Range/Units 11:01 WBC 14.2 H (3.8-10.6) k/uL RBC 2.49 L (4.30-5.90) m/uL Hgb 7.1 L (13.0-17.5) gm/dL Hct 22.2 L (39.0-53.0) % RDW 17.6 H (11.5-15.5) % Microbiology - Last 24 Hours (Table) 06/08/19 20:30 Urine Culture - Final Urine,Catheterized Assessment and Plan Plan: Sepsis and bacteremia with E. coli along with 2 polymicrobial positive UTI continue with Invanz patient can use to have symptoms urology consultation with for possibility of left to perinephric abscess although his was read as hematoma on the CAT scan. -Possible aspiration pneumonia -Epistaxis which resolved at this time believed to be secondary to coagulopathy -Multiple sclerosis with chronic debility spasticity rigidity and contractures for which supportive care -Hypertension -History of DVT -Acute respiratory failure with possible aspiration
[2019-06-10 13:40] LABS: Eosinophils # (M) 0.28 k/uL (0-0.7); Lymphocytes # (M) 0.99 k/uL (1.0-4.8); Monocytes # (M) 1.28 k/uL (0-1.0); Neutrophils % (M) 82 %; Nucleated Red Blood Cells 0 /100 WBC (0-0); Total Cells Counted 100
[2019-06-10 13:41] LABS: Polychromasia Present
[2019-06-10] MEDS: AMANTADINE HCL 100 MG/10 ML CUP PEG/G-TUBE SCH (14:14)
[2019-06-10] MEDS: ERTAPENEM 1 GM in SODIUM CHLORIDE 0.9% 50 ML IVPB SCH (16:19)
[2019-06-10] MEDS: ACETAMINOPHEN ORAL SUSP (PEDS) 3,840 MG/120 ML BOTTLE PEG/G-TUBE PRN (22:54)
--- NOTE | 2019-06-10 23:07 | PN ---
PROGRESS NOTE DATE OF SERVICE: 06/10/2019 REASON FOR FOLLOWUP: ESBL E coli bacteremia and UTI. INTERVAL HISTORY: The patient is currently afebrile. The patient has been hemodynamically stable. The patient has been breathing comfortably. No further bleeding has been noted. He has been tolerating his tube feeds. No drainage reported by nursing staff. PHYSICAL EXAMINATION: Blood pressure is 143/92 with a pulse of 99, temperature 98.5. He is 96% on room air. General description is a middle-aged male lying in bed in no distress. RESPIRATORY SYSTEM: Unlabored breathing with decreased breath sounds at the base. No wheeze. HEART: S1, S2. Regular rate and rhythm. ABDOMEN: Soft. No tenderness. LABS: Creatinine 0.67. White count slightly up to 14,000 today. Repeat urine culture has been negative. DIAGNOSTIC IMPRESSION AND PLAN: 1. Patient with extended-spectrum beta-lactamase bacteremia secondary to urinary source in this patient who did grow multiple other pathogens in the initial urine culture. However, the urine culture after change of Stein catheter has been negative. Repeat blood culture has been ordered. Continue with Invanz. 2. Slight jump in the white count, more likely secondary to steroid effect. Will monitor closely. MMODL / IJN: [id number] /
[2019-06-11] MEDS: AMANTADINE HCL 100 MG/10 ML CUP PEG/G-TUBE SCH ×3 (00:06→23:49)
[2019-06-11] MEDS: SODIUM CHLORIDE 0.9% 1,000 ML IV SCH (04:29)
[2019-06-11 05:28] LABS: African American GFR (CKD) >90 (>60 ml/min/1.73 sqM); Anion Gap 9 mmol/L; Blood Urea Nitrogen 15 mg/dL (9-20); Calcium 8.4 mg/dL (8.4-10.2); Carbon Dioxide 24 mmol/L (22-30); Chloride 112 mmol/L (98-107); Glucose 123 mg/dL (74-99); Potassium 3.3 mmol/L (3.5-5.1); Sodium 145 mmol/L (137-145)
[2019-06-11] MEDS: POTASSIUM BICARBONATE/CIT AC 20 MEQ TABLET.EFF NG-TUBE SCH ×2 (08:00→11:14)
[2019-06-11] MEDS: BACLOFEN 10 MG TAB PEG/G-TUBE SCH ×3 (08:00→21:30)
[2019-06-11] MEDS: LORazepam 1 MG TAB PO PRN ×3 (08:00→23:52)
[2019-06-11] MEDS: DOCUSATE ORAL SOLN 100 MG/10 ML CUP PEG/G-TUBE SCH ×2 (08:01→21:30)
[2019-06-11] MEDS: METOPROLOL TARTRATE 25 MG TAB PEG/G-TUBE SCH ×2 (08:01→21:30)
[2019-06-11] MEDS: FUROSEMIDE 20 MG TAB PEG/G-TUBE SCH (08:01)
[2019-06-11] MEDS: PANTOPRAZOLE 40 MG/10 ML VIAL IVP SCH (08:01)
[2019-06-11] MEDS: CHOLECALCIFEROL 1,000 UNIT TAB PEG/G-TUBE SCH (08:01)
[2019-06-11] MEDS: GABAPENTIN 100 MG CAP PO SCH ×3 (08:01→21:31)
--- NOTE | 2019-06-11 08:41 | XR ---
EXAMINATION TYPE: XR chest 1V portable DATE OF EXAM: 06/11/2019 COMPARISON: 06/07/2019 HISTORY: Pneumonia. Follow-up exam. TECHNIQUE: Single frontal view of the chest is obtained. FINDINGS: There are worsening midlung and perihilar opacities with interstitial pulmonary edema that is mild throughout. Old fracture deformities of the left lateral mid ribs. Otherwise osseous structu res are grossly intact. Cardiomediastinal silhouette is stable. No sizable pneumothorax or pleural ef fusion. IMPRESSION: Worsening bilateral midlung and perihilar opacities likely on the basis of multifocal pn eumonia.
[2019-06-11] MEDS ORDERED: DEXTROSE 5%-0.9% NACL 1,000 ML IV SCH (10:15)
[2019-06-11] MEDS: DEXTROSE 5% IN WATER 1,000 ML IV SCH (11:15)
--- NOTE | 2019-06-11 12:24 | P.PN ---
Subjective Progress Note Date: 06/11/19 Principal diagnosis: Epistaxis and ESBL E. coli bacteremia, recurrent urinary tract infections 59-year-old male patient with known history of severe MS and the patient has been essentially bedridden and nonverbal with a chronic indwelling Stein catheter with previous history of recurrent UTIs including infections with gram- negative bacteria such as Pseudomonas. 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 He has also had previous infections with ESBL producing E. coli in the urine. The patient came in yesterday because of interval worsening in mental status, fever, leukocytosis, suspected recurrent urine checked infection and I was asked to evaluate this patient for possible pneumonia. He is currently on room air. His resting comfortably. His enteral feeding for nutritional support. He does not communicate. He does not look to be tachypneic. He has a decent cough and he has a congested cough. It seems that he has some upper airway secretions. Chest x-ray shows some limited atelectatic changes in lung bases bilaterally. No reported aspiration. He is currently on IV Invanz eating an ESBL producing E. coli. Upon inspection, the patient seems to be quite emaciated and cachectic. He has multiple contractures in lower extremities related to MS. As stated, is nonverbal. He grimaces to painful stimulation. On 06/06/2019 patient has been transferred to the intensive care unit, apparently rapid response team was called for concern of hypotension, patient was transiently hypotensive, with a blood pressure of 79/52, developed a nosebleed, patient's hemoglobin went down from 10.4-7.9 on this morning's labs, distant epistaxis, INR today is 3.4, 1 unit of blood has been ordered. Patient is currently not intensive care unit, apparently the nosebleed had stopped initially, however it resumed, ENT service has been consulted, but has not been in to evaluate the patient yet, hemodynamically patient appears to be stable, no additional fluids were given, the patient is slightly tachycardic, current blood pressure is 118/84, patient is afebrile, currently the oxygen cannula is off, but the patient is maintaining oxygenation of 96%. We will give the patient dose of vitamin K as well, patient is on Coumadin for history of DVT, and a baby aspirin, which we will hold. No respiratory difficulty right now, head the bed is up 60 degrees. On 06/07/2019 I'm seeing this patient for a follow-up. The patient got moved to the intensive care unit yesterday because of epistaxis. Coagulopathy was reversed. Coumadin was stopped. The nostrils were packed bilaterally by ENT. Since then, there is no ongoing bleeding. The chest x-ray showed bilateral pulmonary infiltration, consistent aspiration. The patient remains on IV Invanz for a E. coli urinary tract infection. This was an ESBL producing organism. The patient remains nonverbal. I think he comprehends and he understands when things are explained to him. He is profoundly weak. He is bedridden. His nonambulatory. He is hemodynamically stable. He has a congested cough. Unable to bring up much sputum. Cough and mechanism is weak. He is receiving enteral feeding for nutritional support. Pulse ox is 90% on room air. Hemodynamically stable. On 06/08/2019, the patient still packed and there is no signs of epistaxis. Hemoglobin stable. He is awake and alert. Still on IV antibiotics with Invanz regarding an E. coli UTI. This is an ESBL producing organism. He comprehends however he cannot move and he cannot talk related to his advanced multiple sclerosis. Hemodynamically stable. No other significant events for now. Reevaluated today on 06/09/2019, patient remains in the ICU, his nasal packing has been removed, and there is no signs of epistaxis. Patient is hemodynamically stable, remains on antibiotics for ESBL bacteremia, patient is aphasic, he has advanced multiple sclerosis. Labs were reviewed his potassium is a bit low at 3.3, being corrected as per protocol. Hemoglobin is 7.2 last chest x-ray from 06/07 showed perihilar infiltrates., Patient may have had some component of aspiration of blood during his episodes of epistaxis. Patient was reevaluated today on 06/10/2019, he is presently on overflow in the ICU, no further episodes of epistaxis. Hemodynamically stable. Remains on antibiotics for his ESBL E. coli bacteremia. Patient remains on Ventimask, he is nonverbal, continues to have a PEG tube in place. His last chest x-ray showed perihilar infiltrates consistent with possibly aspiration pneumonia or aspiration of blood from his epistaxis. Follow-up chest x-ray will be ordered to be done in a.m. Reevaluated today on 06/11/2019, remains in the ICU as an overflow, patient had no further episodes of epistaxis, he is hemodynamically stable, remains on antibiotics for ESBL E. coli bacteremia, and pneumonia involving bilateral mid lungs and perihilar areas as noted above chest x-ray again today. Otherwise the patient is about the same. WBC count is 14.5 hemoglobin is 7.1. Electrolytes showed elevated sodium hence his IV fluid was changed to D5W as 0.9. Objective - Vital Signs Vital signs: Vital Signs Temp 99.6 F 06/11/19 08:00 Pulse 111 H 06/11/19 08:00 Resp 34 H 06/11/19 08:00 BP 145/86 06/11/19 08:00 Pulse Ox 92 L 06/11/19 08:39 Intake & Output 06/10/19 06/11/19 06/11/19 18:59 06:59 18:59 Intake Total 284 096 2581 Output Total 1150 590 800 Balance -700 230 530 Weight 73 kg Intake: IV 200 200 450 Sodium Chloride 0.9% 1, 200 200 450 000 ml @ 50 mls/hr IV . Q20H [facility] Rx#:[id number] Intake, IV Titration 50 Amount Dextrose 5% in Water 1, 50 000 ml @ 50 mls/hr IV . Q20H [facility] Rx#:[id number] Tube Feeding 250 500 700 Other 120 130 Output: Urine 1150 590 800 Other: Voiding Method Indwelling Catheter Indwelling Catheter # Voids 0 - Exam GENERAL EXAM: Revealed a 59-year-old white male in no distress, cachectic, chronically ill. And aphasic. HEAD: Normocephalic/atraumatic. HEENT: Evidence of old blood noted at the outer nasal mucosa, no nasal packings noted. Throat is clear. Moist mucous membranes. CHEST: Symmetrical chest expansion, minimal crackles at the bases no rhonchi and no wheezes. CVS: Regular rate and rhythm, normal S1 and S2, no gallops, no murmurs, no rubs ABDOMEN: Soft, nontender. No hepatosplenomegaly, normal bowel sounds, no guarding or rigidity. PEG tube is in place site is clean dry and intact EXTREMITIES: No cyanosis no clubbing no edema. Good pulses bilaterally. MUSCULOSKELETAL: muscle rigidity bilaterally, chronic contractures Skin: No rashes. CENTRAL NERVOUS SYSTEM: Alert, nonverbal. No focal deficits, tone is normal in all 4 extremities. Patient is not verbal. - Labs CBC & Chem 7: 06/10/19 11:01 06/11/19 04:55 Labs: Abnormal Lab Results - Last 24 Hours (Table) 06/10/19 06/11/19 Range/Units 11: 04:55 WBC 14.2 H (3.8-10.6) k/uL RBC 2.49 L (4.30-5.90) m/uL Hgb 7.1 L (13.0-17.5) gm/dL Hct 22.2 L (39.0-53.0) % RDW 17.6 H (11.5-15.5) % Neutrophils # (Manual) 11.64 H (1.3-7.7) k/uL Lymphocytes # (Manual) 0.99 L (1.0-4.8) k/uL Monocytes # (Manual) 1.28 H (0-1.0) k/uL Potassium 3.3 L (3.5-5.1) mmol/L Chloride 112 H (98-107) mmol/L Creatinine 0.63 L (0.66-1.25) mg/dL Glucose 123 H (74-99) mg/dL Microbiology - Last 24 Hours (Table) 06/04/19 00:09 Urine Culture - Final Urine,Catheterized Enterococcus faecalis Pseudomonas aeruginosa Escherichia coli 06/08/19 20:30 Urine Culture - Final Urine,Catheterized Assessment and Plan Assessment: Impression: 1 epistaxis, with hypotension and blood loss requiring 2 units of packed RBCs and 1 unit of fresh frozen plasma on admission. Hemoglobin is stable at 7.1. 2 ESBL E. coli bacteremia and positive urine cultures for Enterococcus faecalis, Pseudomonas, and E. coli. Presently on Invanz. 3 bilateral pneumonia, most likely aspiration related. Aspiration pneumonia. 4 advanced multiple sclerosis with cognitive impairment muscle atrophy and spasticity and rigidity as well as contractures. Patient is bedridden. 5 multiple comorbidities including hypertension, previous history of upper extremity DVT, history of depression, history of trigeminal neuralgia. Recommendation: Continue antibiotics, continue aspiration precaution, continue enteral feeding via PEG tube, continue compression devices for DVT prophylaxis, hopefully transfer the patient out of the ICU, overall prognosis remains extremely poor and guarded, will follow Time with Patient: Less than 30
--- NOTE | 2019-06-11 13:18 | P.PN ---
Subjective 59-year-old the female was admitted the for ESBL E. coli bacteremia recurrent urinary tract infection patient does have history of multiple sclerosis. Patient the urine cultures are positive for enterococcus Pseudomonas and E. coli. Patient is on Invanz. Continue to have fevers. There is perinephric hematoma on the left side and now there is a concern for abscess in that area because of which neurology was consulted as per infectious disease. 06/10/2019 Patient went blood cell count went up to 14,000 patient fevers although resolved, urology will evaluate the patient. 06/11/2019 Patient cannot provide much of history because of his multiple sclerosis although does have pain we'll use Toradol for pain. Patient has rhonchorous breath sounds. Patient is on broad-spectrum antibiotics ertapenem at this time. I'll discuss with the sister whose medical power of decontamination technician regarding his CODE STATUS and possibility of palliative care. Review of systems: Unable to obtain as patient doesn't talk much because of multiple sclerosis All inpatient medications were reviewed and appropriate changes in these medications as dictated in the interval history and assessment and plan. Objective - Vital Signs Vital signs: Vital Signs Temp 99.6 F 06/11/19 08:00 Pulse 111 H 06/11/19 08:00 Resp 34 H 06/11/19 08:00 BP 145/86 06/11/19 08:00 Pulse Ox 92 L 06/11/19 08:39 Intake & Output 06/10/19 06/11/19 06/11/19 18:59 06:59 18:59 Intake Total 114 246 7488 Output Total 1150 590 800 Balance -700 230 530 Weight 73 kg Intake: IV 200 200 450 Sodium Chloride 0.9% 1, 200 200 450 000 ml @ 50 mls/hr IV . Q20H [facility] Rx#:[id number] Intake, IV Titration 50 Amount Dextrose 5% in Water 1, 50 000 ml @ 50 mls/hr IV . Q20H [facility] Rx#:[id number] Tube Feeding 250 500 700 Other 120 130 Output: Urine 1150 590 800 Other: Voiding Method Indwelling Catheter Indwelling Catheter # Voids 0 - Exam ENERAL EXAM: Revealed a 59-year-old white male in no distress, cachectic, chronically ill. And aphasic. HEAD: Normocephalic/atraumatic. HEENT: Evidence of old blood noted at the outer nasal mucosa, no nasal packings noted. Throat is clear. Moist mucous membranes. CHEST: Symmetrical chest expansion, minimal crackles at the bases no rhonchi and no wheezes. CVS: Regular rate and rhythm, normal S1 and S2, no gallops, no murmurs, no rubs ABDOMEN: Soft, nontender. No hepatosplenomegaly, normal bowel sounds, no guarding or rigidity. PEG tube is in place site is clean dry and intact EXTREMITIES: No cyanosis no clubbing no edema. Good pulses bilaterally. MUSCULOSKELETAL: Muscle strength and tone normal. Chronic foot drops, muscle rigidity bilaterally, chronic contractures Skin: No rashes. CENTRAL NERVOUS SYSTEM: Alert, nonverbal. No focal deficits, tone is normal in all 4 extremities. Patient is not verbal. - Labs CBC & Chem 7: 06/10/19 11:01 06/11/19 04:55 Labs: Abnormal Lab Results - Last 24 Hours (Table) 06/10/19 06/11/19 Range/Units 11:01 04:55 Neutrophils # (Manual) 11.64 H (1.3-7.7) k/uL Lymphocytes # (Manual) 0.99 L (1.0-4.8) k/uL Monocytes # (Manual) 1.28 H (0-1.0) k/uL Potassium 3.3 L (3.5-5.1) mmol/L Chloride 112 H (98-107) mmol/L Creatinine 0.63 L (0.66-1.25) mg/dL Glucose 123 H (74-99) mg/dL Microbiology - Last 24 Hours (Table) 06/04/19 00:09 Urine Culture - Final Urine,Catheterized Enterococcus faecalis Pseudomonas aeruginosa Escherichia coli 06/08/19 20:30 Urine Culture - Final Urine,Catheterized Assessment and Plan Plan: Sepsis and bacteremia with E. coli along with 2 polymicrobial positive UTI continue with Invanz , patient has polymicrobial positive urine cultures ca theter cultures are negative white blood cell count went up probably secondary to steroids -Possible aspiration pneumonia -Epistaxis which resolved at this time believed to be secondary to coagulopathy -Multiple sclerosis with chronic debility spasticity rigidity and contractures for which supportive care -Hypertension -History of DVT -Acute respiratory failure with possible aspiration
[2019-06-11] MEDS: KETOROLAC 30 MG/ML 1 ML VIAL IVP PRN (13:44)
[2019-06-11 14:51] VITALS: BMI 26.7
[2019-06-11] MEDS: ACETAMINOPHEN ORAL SUSP (PEDS) 3,840 MG/120 ML BOTTLE PEG/G-TUBE PRN (15:52)
[2019-06-11] MEDS: ERTAPENEM 1 GM in SODIUM CHLORIDE 0.9% 50 ML IVPB SCH (15:52)
--- NOTE | 2019-06-11 17:40 | PN ---
PROGRESS NOTE DATE OF SERVICE: 06/11/2019 REASON FOR FOLLOWUP: ESBL E coli UTI and bacteremia. INTERVAL HISTORY: The patient is currently afebrile. The patient is hemodynamically stable, not on any pressor support. Currently on a Ventimask. No nausea, no vomiting. or diarrhea reported by the nursing staff. Patient himself is unable to provide a reliable history. PHYSICAL EXAMINATION: Blood pressure 120/96, pulse of 103, temperature 98.9. He is 96% on Ventimask. General description is a middle-aged male lying in bed in no distress. RESPIRATORY SYSTEM: Unlabored breathing with decreased breath sounds at the base. No wheeze. HEART: S1, S2. Regular rate and rhythm. ABDOMEN: Soft. No tenderness. EXTREMITIES: No edema of the feet. LABS: BUN of 15, creatinine 0.63. Blood culture and repeat urine culture are so far negative. DIAGNOSTIC IMPRESSION AND PLAN: Patient with extended-spectrum beta-lactamase Escherichia coli bacteremia. Source is urine. Urine also shows multiple other pathogens; could have been a colonizer as opposed to in the blood and repeat urine culture is negative. The patient is currently covered with [employer]; to continue while monitoring his clinical course closely. Overall prognosis remains guarded. Continue with supportive care. MMODL / IJN: [id number] /
[2019-06-12] MEDS: KETOROLAC 30 MG/ML 1 ML VIAL IVP PRN ×2 (01:54→08:07)
[2019-06-12] MEDS: DEXTROSE 5% IN WATER 1,000 ML IV SCH ×2 (06:55→22:57)
[2019-06-12] MEDS: PANTOPRAZOLE 40 MG/10 ML VIAL IVP SCH (08:07)
[2019-06-12] MEDS: DOCUSATE ORAL SOLN 100 MG/10 ML CUP PEG/G-TUBE SCH ×2 (08:07→20:44)
[2019-06-12] MEDS: GABAPENTIN 100 MG CAP PO SCH ×3 (08:08→22:39)
[2019-06-12] MEDS: CHOLECALCIFEROL 1,000 UNIT TAB PEG/G-TUBE SCH (08:08)
[2019-06-12] MEDS: FUROSEMIDE 20 MG TAB PEG/G-TUBE SCH (08:08)
[2019-06-12] MEDS: METOPROLOL TARTRATE 25 MG TAB PEG/G-TUBE SCH ×2 (08:08→20:46)
[2019-06-12] MEDS: BACLOFEN 10 MG TAB PEG/G-TUBE SCH ×3 (08:08→22:39)
[2019-06-12] MEDS: AMANTADINE HCL 100 MG/10 ML CUP PEG/G-TUBE SCH (12:48)
--- NOTE | 2019-06-12 13:01 | P.PN ---
Subjective 59-year-old the female was admitted the for ESBL E. coli bacteremia recurrent urinary tract infection patient does have history of multiple sclerosis. Patient the urine cultures are positive for enterococcus Pseudomonas and E. coli. Patient is on Invanz. Continue to have fevers. There is perinephric hematoma on the left side and now there is a concern for abscess in that area because of which neurology was consulted as per infectious disease. 06/10/2019 Patient went blood cell count went up to 14,000 patient fevers although resolved, urology will evaluate the patient. 06/11/2019 Patient cannot provide much of history because of his multiple sclerosis although does have pain we'll use Toradol for pain. Patient has rhonchorous breath sounds. Patient is on broad-spectrum antibiotics ertapenem at this time. I'll discuss with the sister whose medical power of imaging tech regarding his CODE STATUS and possibility of palliative care. 06/12/2019 patient appears to be close to his baseline although high risk for readmission patient absolute requirements have come down patient will be dictated requiring IV antibiotics and patient will require either ertapenem will obtain a PICC line today possibility of discharge to rehabilitation tomorrow Review of systems: Unable to obtain as patient doesn't talk much because of multiple sclerosis All inpatient medications were reviewed and appropriate changes in these medications as dictated in the interval history and assessment and plan. Objective - Vital Signs Vital signs: Vital Signs Temp 99.1 F 06/12/19 01:57 Pulse 97 06/12/19 01:57 Resp 16 06/12/19 01:57 BP 135/76 06/12/19 01:57 Pulse Ox 94 L 06/12/19 07:44 Intake & Output 06/11/19 06/12/19 06/12/19 18:59 06:59 18:59 Intake Total 2040 300 100 Output Total 1305 950 Balance 735 -650 100 Weight 73 kg 43.5 kg Intake: IV 450 100 Dextrose 5% in Water 1, 100 000 ml @ 50 mls/hr IV . Q20H [facility] Rx#:[id number] Sodium Chloride 0.9% 1, 450 000 ml @ 50 mls/hr IV . Q20H [facility] Rx#:[id number] Intake, IV Titration 400 50 Amount Dextrose 5% in Water 1, 400 50 000 ml @ 50 mls/hr IV . Q20H [facility] Rx#:[id number] Tube Feeding 1000 150 100 Other 190 Output: Urine 1305 950 Other: Voiding Method Indwelling Catheter # Voids 0 - Exam ENERAL EXAM: Revealed a 59-year-old white male in no distress, cachectic, chronically ill. And aphasic. HEAD: Normocephalic/atraumatic. HEENT: Evidence of old blood noted at the outer nasal mucosa, no nasal packings noted. Throat is clear. Moist mucous membranes. CHEST: Symmetrical chest expansion, minimal crackles at the bases no rhonchi and no wheezes. CVS: Regular rate and rhythm, normal S1 and S2, no gallops, no murmurs, no rubs ABDOMEN: Soft, nontender. No hepatosplenomegaly, normal bowel sounds, no guarding or rigidity. PEG tube is in place site is clean dry and intact EXTREMITIES: No cyanosis no clubbing no edema. Good pulses bilaterally. MUSCULOSKELETAL: Muscle strength and tone normal. Chronic foot drops, muscle rigidity bilaterally, chronic contractures Skin: No rashes. CENTRAL NERVOUS SYSTEM: Alert, nonverbal. No focal deficits, tone is normal in all 4 extremities. Patient is not verbal. - Labs CBC & Chem 7: 06/10/19 11:01 06/12/19 07:41 Labs: Microbiology - Last 24 Hours (Table) 06/10/19 14:13 Blood Culture - Preliminary Blood No Growth after 24 hours 06/10/19 14:10 Blood Culture - Preliminary Blood No Growth after 24 hours 06/04/19 00:09 Urine Culture - Final Urine,Catheterized Enterococcus faecalis Pseudomonas aeruginosa Escherichia coli Assessment and Plan Plan: Sepsis and bacteremia with E. coli along with 2 polymicrobial positive UTI continue with Invanz , patient has polymicrobial positive urine cultures catheter cultures are negative white blood cell count went up probably secondary to steroids -Possible aspiration pneumonia -Epistaxis which resolved at this time believed to be secondary to coagulopathy -Multiple sclerosis with chronic debility spasticity rigidity and contractures for which supportive care -Hypertension -History of DVT -Acute respiratory failure with possible aspiration
--- NOTE | 2019-06-12 15:38 | P.PN ---
Subjective Progress Note Date: 06/12/19 Principal diagnosis: Acute epistaxis, anemia 59-year-old male patient with known history of severe MS and the patient has been essentially bedridden and nonverbal with a chronic indwelling Stein catheter with previous history of recurrent UTIs including infections with gram-negative bacteria such as Pseudomonas. The patient is a shelter resident. He has also had previous infections with ESBL producing E. coli in the urine. The patient came in yesterday because of interval worsening in mental status, fever, leukocytosis, suspected recurrent urine checked infection and I was asked to evaluate this patient for possible pneumonia. He is currently on room air. His resting comfortably. His enteral feeding for nutritional support. He does not communicate. He does not look to be tachypneic. He has a decent cough and he has a congested cough. It seems that he has some upper airway secretions. Chest x-ray shows some limited atelectatic changes in lung bases bilaterally. No reported aspiration. He is currently on IV Invanz eating an ESBL producing E. coli. Upon inspection, the patient seems to be quite emaciated and cachectic. He has multiple contractures in lower extremities related to MS. As stated, is nonverbal. He grimaces to painful stimulation. On 06/06/2019 patient has been transferred to the intensive care unit, apparently rapid response team was called for concern of hypotension, patient was transiently hypotensive, with a blood pressure of 79/52, developed a nosebleed, patient's hemoglobin went down from 10.4-7.9 on this morning's labs, distant epistaxis, INR today is 3.4, 1 unit of blood has been ordered. Patient is currently not intensive care unit, apparently the nosebleed had stopped initially, however it resumed, ENT service has been consulted, but has not been in to evaluate the patient yet, hemodynamically patient appears to be stable, no additional fluids were given, the patient is slightly tachycardic, current blood pressure is 118/84, patient is afebrile, currently the oxygen cannula is off, but the patient is maintaining oxygenation of 96%. We will give the patient dose of vitamin K as well, patient is on Coumadin for history of DVT, and a baby aspirin, which we will hold. No respiratory difficulty right now, head the bed is up 60 degrees. On 06/12/2019 patient seen in follow-up on medical surgical floor. He is awake and alert, patient is nonverbal, but he does not appear to be in any acute distress, he is on room air, with a pulse ox of 94%, afebrile. Has been no recurrence of epistaxis. Vital signs are stable, no new labs today, other than serum potassium which is at 4.2, lung sounds reveal some scattered rhonchi, no significant wheezing. Had the bed is up 30, patient is tolerating his PEG tube feedings, he has Jevity infusing at a rate of 50 ML. On appropriate antibiotics for E. coli bacteremia and urinary tract infection with cultures positive for Enterococcus faecalis, pseudomonas aeruginosa and ESBL E. coli. Objective - Vital Signs Vital signs: Vital Signs Temp 99.1 F 06/12/19 01:57 Pulse 97 06/12/19 01:57 Resp 16 06/12/19 01:57 BP 135/76 06/12/19 01:57 Pulse Ox 94 L 06/12/19 07:44 Intake & Output 06/11/19 06/12/19 06/12/19 18:59 06:59 18:59 Intake Total 2040 300 100 Output Total 1305 950 Balance 735 -650 100 Weight 73 kg 43.5 kg Intake: IV 450 100 Dextrose 5% in Water 1, 100 000 ml @ 50 mls/hr IV . Q20H [facility] Rx#:[id number] Sodium Chloride 0.9% 1, 450 000 ml @ 50 mls/hr IV . Q20H [facility] Rx#:[id number] Intake, IV Titration 400 50 Amount Dextrose 5% in Water 1, 400 50 000 ml @ 50 mls/hr IV . Q20H [facility] Rx#:[id number] Tube Feeding 1000 150 100 Other 190 Output: Urine 1305 950 Other: Voiding Method Indwelling Catheter # Voids 0 - Exam GENERAL EXAM: Alert, pleasant, 59-year-old white male, on room air he is cachectic, alert, but he is nonverbal HEAD: Normocephalic/atraumatic. EYES: Normal reaction of pupils, equal size. Conjunctiva pink, sclera white. NOSE: Clear with pink turbinates. THROAT: No erythema or exudates. NECK: No masses, no JVD, no thyroid enlargement, no adenopathy. CHEST: No chest wall deformity. Symmetrical expansion. LUNGS: Equal air entry with scattered rhonchi CVS: Regular rate and rhythm, normal S1 and S2, no gallops, no murmurs, no rubs ABDOMEN: Soft, nontender. No hepatosplenomegaly, normal bowel sounds, no guarding or rigidity. PEG tube is in place site is clean dry and intact EXTREMITIES: No clubbing, no edema, no cyanosis, 2+ pulses and upper and lower extremities. MUSCULOSKELETAL: Muscle strength and tone normal. Chronic foot drops, muscle rigidity bilaterally, chronic contractures SPINE: No scoliosis or deformity SKIN: No rashes CENTRAL NERVOUS SYSTEM: Alert, nonverbal. No focal deficits, tone is normal in all 4 extremities. - Labs CBC & Chem 7: 06/10/19 11:01 06/12/19 07:41 Labs: Microbiology - Last 24 Hours (Table) 06/10/19 14:13 Blood Culture - Preliminary Blood No Growth after 24 hours 06/10/19 14:10 Blood Culture - Preliminary Blood No Growth after 24 hours Assessment and Plan Plan: Assessment: 1 epistaxis, with hypotension and blood loss requiring 2 units of packed RBCs and 1 unit of fresh frozen plasma on admission. Hemoglobin is stable at 7.1. 2 ESBL E. coli bacteremia and positive urine cultures for Enterococcus faecalis, Pseudomonas, and E. coli. Presently on Invanz. 3 bilateral pneumonia, most likely aspiration related. Aspiration pneumonia. 4 advanced multiple sclerosis with cognitive impairment muscle atrophy and spasticity and rigidity as well as contractures. Patient is bedridden. 5 multiple comorbidities including hypertension, previous history of upper extremity DVT, history of depression, history of trigeminal neuralgia. Plan: No acute events overnight, patient is maintaining stable oxygenation, no dyspnea, no signs of respiratory distress, vital signs are stable, patient is afebrile, he is on appropriate antibiotics for gram-negative bacteremia, and ESBL E. coli urinary tract infection which also showed evidence of Enterococcus faecalis, and Pseudomonas. ID service is following, and I will defer to their input on the length of treatment. A pulmonary perspective patient is stable, no acute critical care issues at this time. Long-term prognosis is extremely guarded, we will sign off and follow on as-needed basis, 18 aspiration precautions, from pulmonary perspective patient is stable for discharge to shelter in the next 24 hours with antibiotics per ID service recommendation. I performed a history & physical examination of the patient and discussed their management with my nurse practitioner, Naheed Pace. I reviewed the nurse practitioner's note and agree with the documented findings and plan of care. Lung sounds are positive for diffuse upper airway rhonchi. The findings and the impression was discussed with the patient. I attest to the documentation by the nurse practitioner. Time with Patient: Less than 30
[2019-06-12] MEDS: ERTAPENEM 1 GM in SODIUM CHLORIDE 0.9% 50 ML IVPB SCH (17:09)
--- NOTE | 2019-06-12 20:08 | PN ---
PROGRESS NOTE DATE OF SERVICE: 06/12/2019 REASON FOR FOLLOWUP: ESBL E coli bacteremia secondary to urinary tract infection. INTERVAL HISTORY: The patient is currently afebrile. The patient has been more awake and alert. He was breathing comfortably on room air. Has been tolerating his tube feeds. No diarrhea reported by the nursing staff. PHYSICAL EXAMINATION: Blood pressure is 135/76, pulse 97, temperature 99.1. He is 95% on room air. General description description is a middle-aged male lying in bed in no distress. RESPIRATORY SYSTEM: Unlabored breathing with decreased breath sounds at the base. No wheeze. HEART: S1, S2. Regular rate and rhythm. ABDOMEN: Soft. No tenderness. LABS: Hemoglobin 7.1, white count 14.2, BUN of 15, creatinine 0.63. DIAGNOSTIC IMPRESSION AND PLAN: Patient with extended-spectrum beta-lactamase Escherichia coli bacteremia secondary to urinary source. Follow-up blood and urine cultures have been negative. He will get midline and will continue with IV Invanz 1 gram daily for another 7-10 days to finish his course of therapy. Continue with supportive care. MMODL / IJN: [id number] /
[2019-06-12] MEDS: LORazepam 1 MG TAB PO PRN (20:46)
[2019-06-13] MEDS: AMANTADINE HCL 100 MG/10 ML CUP PEG/G-TUBE SCH ×3 (00:08→23:55)
[2019-06-13] MEDS: PANTOPRAZOLE 40 MG/10 ML VIAL IVP SCH (07:50)
[2019-06-13] MEDS: METOPROLOL TARTRATE 25 MG TAB PEG/G-TUBE SCH ×2 (07:51→21:21)
[2019-06-13] MEDS: GABAPENTIN 100 MG CAP PO SCH ×3 (07:51→21:20)
[2019-06-13] MEDS: FUROSEMIDE 20 MG TAB PEG/G-TUBE SCH (07:51)
[2019-06-13] MEDS: CHOLECALCIFEROL 1,000 UNIT TAB PEG/G-TUBE SCH (07:51)
[2019-06-13] MEDS: BACLOFEN 10 MG TAB PEG/G-TUBE SCH ×3 (07:51→21:20)
[2019-06-13] MEDS: SCOPOLAMINE 1.5MG/72HR PATCH TRANSDERM SCH (07:51)
[2019-06-13] MEDS: DOCUSATE ORAL SOLN 100 MG/10 ML CUP PEG/G-TUBE SCH ×2 (07:52→21:21)
[2019-06-13 08:15] LABS: Anisocytosis Slight; Hypochromasia Slight; MCH 28.3 pg (25.0-35.0); MCHC 31.9 g/dL (31.0-37.0); MCV 88.7 fL (80.0-100.0); Mean Platelet Volume 7.8; RBC 2.19 m/uL (4.30-5.90); RDW 17.9 % (11.5-15.5)
[2019-06-13 08:30] LABS: African American GFR (CKD) >90 (>60 ml/min/1.73 sqM); Anion Gap 11 mmol/L; Blood Urea Nitrogen 17 mg/dL (9-20); Calcium 8.6 mg/dL (8.4-10.2); Carbon Dioxide 23 mmol/L (22-30); Chloride 107 mmol/L (98-107); Glucose 122 mg/dL (74-99); Potassium 4.1 mmol/L (3.5-5.1); Sodium 141 mmol/L (137-145)
[2019-06-13 08:39] LABS: HCT 19.5 % (39.0-53.0); HGB 6.2 gm/dL (13.0-17.5); Platelet Count 846 k/uL (150-450)
[2019-06-13 10:15] LABS: Anisocytosis Slight; Basophils # (A) 0.1 k/uL (0-0.2); Basophils % (A) 0 %; Eosinophils # (A) 0.4 k/uL (0-0.7); Eosinophils % (A) 3 %; HCT 21.7 % (39.0-53.0); Hypochromasia Slight; Lymphocytes # (A) 2.2 k/uL (1.0-4.8); Lymphocytes % (A) 17 %; MCH 27.4 pg (25.0-35.0); MCHC 31.2 g/dL (31.0-37.0); MCV 87.9 fL (80.0-100.0); Monocytes # (A) 0.6 k/uL (0-1.0); Monocytes % (A) 4 %; Neutrophils % (A) 74 %; Poikilocytosis Slight; RBC 2.47 m/uL (4.30-5.90); RDW 17.7 % (11.5-15.5); WBC 13.5 k/uL (3.8-10.6)
[2019-06-13 10:26] LABS: HGB 6.8 gm/dL (13.0-17.5)
--- NOTE | 2019-06-13 11:14 | P.PN ---
Subjective Progress Note Date: 06/13/19 Principal diagnosis: Acute epistaxis, anemia 59-year-old male patient with known history of severe MS and the patient has been essentially bedridden and nonverbal with a chronic indwelling Stein catheter with previous history of recurrent UTIs including infections with gram-negative bacteria such as Pseudomonas. 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 He has also had previous infections with ESBL producing E. coli in the urine. The patient came in yesterday because of interval worsening in mental status, fever, leukocytosis, suspected recurrent urine checked infection and I was asked to evaluate this patient for possible pneumonia. He is currently on room air. His resting comfortably. His enteral feeding for nutritional support. He does not communicate. He does not look to be tachypneic. He has a decent cough and he has a congested cough. It seems that he has some upper airway secretions. Chest x-ray shows some limited atelectatic changes in lung bases bilaterally. No reported aspiration. He is currently on IV Invanz eating an ESBL producing E. coli. Upon inspection, the patient seems to be quite emaciated and cachectic. He has multiple contractures in lower extremities related to MS. As stated, is nonverbal. He grimaces to painful stimulation. On 06/06/2019 patient has been transferred to the intensive care unit, apparently rapid response team was called for concern of hypotension, patient was transiently hypotensive, with a blood pressure of 79/52, developed a nosebleed, patient's hemoglobin went down from 10.4-7.9 on this morning's labs, distant epistaxis, INR today is 3.4, 1 unit of blood has been ordered. Patient is currently not intensive care unit, apparently the nosebleed had stopped initially, however it resumed, ENT service has been consulted, but has not been in to evaluate the patient yet, hemodynamically patient appears to be stable, no additional fluids were given, the patient is slightly tachycardic, current blood pressure is 118/84, patient is afebrile, currently the oxygen cannula is off, but the patient is maintaining oxygenation of 96%. We will give the patient dose of vitamin K as well, patient is on Coumadin for history of DVT, and a baby aspirin, which we will hold. No respiratory difficulty right now, head the bed is up 60 degrees. On 06/12/2019 patient seen in follow-up on medical surgical floor. He is awake and alert, patient is nonverbal, but he does not appear to be in any acute distress, he is on room air, with a pulse ox of 94%, afebrile. Has been no recurrence of epistaxis. Vital signs are stable, no new labs today, other than serum potassium which is at 4.2, lung sounds reveal some scattered rhonchi, no significant wheezing. Had the bed is up 30, patient is tolerating his PEG tube feedings, he has Jevity infusing at a rate of 50 ML. On appropriate antibiotics for E. coli bacteremia and urinary tract infection with cultures positive for Enterococcus faecalis, pseudomonas aeruginosa and ESBL E. coli. On 06/13/2019 patient seen in follow-up on medical surgical floor. Clinically remains stable, however this morning's labs showed decrease of patient's hemoglobin to 6.2 on 7.1 on yesterday's labs. No obvious source of bleeding, hemodynamically patient remains stable, no recurrence of nose bleeding. Oxygenation is stable, room air pulse ox is 97%, patient is afebrile, hemodynamically stable, he had his PICC line inserted yesterday, he is on IV antibiotics in the form of Invanz for E. coli bacteremia and urinary tract infection with cultures positive for Enterococcus faecalis, pseudomonas aeruginosa and ESBL E. coli. No acute events overnight, he is tolerating tube feedings, no respiratory distress, lung sounds reveal a few scattered basilar rales, no significant congestion. Objective - Vital Signs Vital signs: Vital Signs Temp 98.6 F 06/13/19 07:43 Pulse 102 H 06/13/19 07:43 Resp 18 06/13/19 07:43 BP 158/96 06/13/19 07:43 Pulse Ox 97 06/13/19 07:43 Intake & Output 06/12/19 06/13/19 06/13/19 18:59 06:59 18:59 Intake Total 150 685 185 Output Total 550 Balance 150 135 185 Weight 65 kg Intake: IV 500 Dextrose 5% in Water 1, 500 000 ml @ 50 mls/hr IV . Q20H [facility] Rx#:[id number] Tube Feeding 150 185 185 Output: Urine 550 Uretheral (Stein) 400 Other: Voiding Method Indwelling Catheter Indwelling Catheter # Bowel Movements 1 - Exam GENERAL EXAM: Alert, pleasant, 59-year-old white male, on room air he is cachectic, alert, but he is nonverbal HEAD: Normocephalic/atraumatic. EYES: Normal reaction of pupils, equal size. Conjunctiva pink, sclera white. NOSE: Clear with pink turbinates. THROAT: No erythema or exudates. NECK: No masses, no JVD, no thyroid enlargement, no adenopathy. CHEST: No chest wall deformity. Symmetrical expansion. LUNGS: Equal air entry with scattered rhonchi CVS: Regular rate and rhythm, normal S1 and S2, no gallops, no murmurs, no rubs ABDOMEN: Soft, nontender. No hepatosplenomegaly, normal bowel sounds, no guarding or rigidity. PEG tube is in place site is clean dry and intact EXTREMITIES: No clubbing, no edema, no cyanosis, 2+ pulses and upper and lower extremities. MUSCULOSKELETAL: Muscle strength and tone normal. Chronic foot drops, muscle rigidity bilaterally, chronic contractures SPINE: No scoliosis or deformity SKIN: No rashes CENTRAL NERVOUS SYSTEM: Alert, nonverbal. No focal deficits, tone is normal in all 4 extremities. - Labs CBC & Chem 7: 06/13/19 09:58 06/13/19 07:13 Labs: Abnormal Lab Results - Last 24 Hours (Table) 06/13/19 06/13/19 06/13/19 Range/Units 07:13 07:13 09:58 WBC 13.0 H 13.5 H (3.8-10.6) k/uL RBC 2.19 L 2.47 L (4.30-5.90) m/uL Hgb 6.2 L* 6.8 L* (13.0-17.5) gm/dL Hct 19.5 L* 21.7 L (39.0-53.0) % RDW 17.9 H 17.7 H (11.5-15.5) % Plt Count 846 H D (150-450) k/uL Glucose 122 H (74-99) mg/dL Microbiology - Last 24 Hours (Table) 06/10/19 14:10 Blood Culture - Preliminary Blood No Growth after 48 hours 06/10/19 14:13 Blood Culture - Preliminary Blood No Growth after 48 hours Assessment and Plan Plan: Assessment: 1 epistaxis, with hypotension and blood loss requiring 2 units of packed RBCs and 1 unit of fresh frozen plasma on admission. Hemoglobin is stable at 7.1. 2 ESBL E. coli bacteremia and positive urine cultures for Enterococcus faecalis, Pseudomonas, and E. coli. Presently on Invanz. 3 bilateral pneumonia, most likely aspiration related. Aspiration pneumonia. 4 advanced multiple sclerosis with cognitive impairment muscle atrophy and spasticity and rigidity as well as contractures. Patient is bedridden. 5 multiple comorbidities including hypertension, previous history of upper extremity DVT, history of depression, history of trigeminal neuralgia. Plan: From pulmonary perspective patient is stable for discharge back to the skilled nursing with antibiotics per ID service recommendations. Clinically stable, there has been a decrease in his hemoglobin down to 6.2 this morning, however patient is hemodynamically stable, no obvious source of bleeding. Active his breathing is stable, continues stable oxygenation. Maintain aspiration precautions. Stable for discharge from pulmonary perspective. I performed a history & physical examination of the patient and discussed their management with my nurse practitioner, Naheed Pace. I reviewed the nurse practitioner's note and agree with the documented findings and plan of care. Lung sounds are positive for diffuse upper airway rhonchi. The findings and the impression was discussed with the patient. I attest to the documentation by the nurse practitioner. Time with Patient: Less than 30
[2019-06-13 12:02] LABS: Platelet Count 974 k/uL (150-450)
--- NOTE | 2019-06-13 13:42 | P.DS ---
Providers Date of admission: 06/04/19 01:15 Attending physician: Avila Ireland MD Consults: 06/04/19 01:19 Consult Physician Routine Consulting Provider: Daniel Ricci Consult Reason/Comments: minimally elevated troponin Do you want consulting provider notified?: Yes Consult Physician Routine Consulting Provider: Sonal Farah Consult Reason/Comments: Urinary tract infection, sepsis Do you want consulting provider notified?: Yes 06/04/19 16:36 Consult Physician Stat Consulting Provider: Delma Taylor Consult Reason/Comments: Decreased LOC, AMS Do you want consulting provider notified?: Yes 06/04/19 17:49 Consult Physician Urgent Consulting Provider: Nathan Yanez Consult Reason/Comments: confusion and pneumonia Do you want consulting provider notified?: Yes 06/06/19 09:53 Consult Physician Stat Consulting Provider: Lane Shelton Consult Reason/Comments: epitaxis, decreased hemoglobin Do you want consulting provider notified?: Yes 06/06/19 22:14 Consult Physician Routine Consulting Provider: Bruce Abebe Consult Reason/Comments: large left perinephric hematoma/subcapsular hematoma Do you want consulting provider notified?: Already Contacted 06/09/19 12:35 Consult Physician Routine Consulting Provider: Dario Ladd Consult Reason/Comments: Posssible kidney abcess Do you want consulting provider notified?: Yes 06/13/19 11:03 Consult Physician Routine Consulting Provider: Ousmane Floyd Consult Reason/Comments: elevated WBC/ Family request Do you want consulting provider notified?: Yes Primary care physician: [facility] Course: 59-year-old the female was admitted the for ESBL E. coli bacteremia recurrent urinary tract infection patient does have history of multiple sclerosis. Patient the urine cultures are positive for enterococcus Pseudomonas and E. coli. Patient is on Invanz. Continue to have fevers. There is perinephric hematoma on the left side and now there is a concern for abscess in that area because of which neurology was consulted as per infectious disease. 06/10/2019 Patient went blood cell count went up to 14,000 patient fevers although resolved, urology will evaluate the patient. 06/11/2019 Patient cannot provide much of history because of his multiple sclerosis although does have pain we'll use Toradol for pain. Patient has rhonchorous breath sounds. Patient is on broad-spectrum antibiotics ertapenem at this time. I'll discuss with the sister whose medical power of military education coordinator regarding his CODE STATUS and possibility of palliative care. 06/12/2019 patient appears to be close to his baseline although high risk for readmission patient absolute requirements have come down patient will be dictated requiring IV antibiotics and patient will require either ertapenem will obtain a PICC line today possibility of discharge to rehabilitation tomorrow 06/13/2019 Patient is clinically doing well infectious-carpio and patient white blood cell count is coming down and patient is on Invanz and which she will continue for 10 days patient received a PICC line. Patient has a recent DVT in the right upper arm, patient has another PICC line now high risk for DVT. Patient was on anticoagulation with Coumadin patient that came in with epistaxis at the time INR level is therapeutic. Since patient's risk is very high for DVT all start him on anticoagulation will use Lovenox 1.5 times a body weight daily which can be reversed easily compared to new anticoagulants. Patient has a perinephric hematoma which was recent. Patient globin is 6.8 today which is low from blood draws came down from 7.1 2 days ago. Patient will be transfused with 1 unit of PRBC transfusion. GENERAL EXAM: Revealed a 59-year-old white male in no distress, cachectic, chronically ill. And aphasic. Patient is at his baseline now HEAD: Normocephalic/atraumatic. HEENT: Evidence of old blood noted at the outer nasal mucosa, no nasal packings noted. Throat is clear. Moist mucous membranes. CHEST: Symmetrical chest expansion, rhonchorous breath sounds CVS: Regular rate and rhythm, normal S1 and S2, no gallops, no murmurs, no rubs ABDOMEN: Soft, nontender. No hepatosplenomegaly, normal bowel sounds, no guarding or rigidity. PEG tube is in place site is clean dry and intact EXTREMITIES: No cyanosis no clubbing no edema. Good pulses bilaterally. MUSCULOSKELETAL: Muscle strength and tone normal. Chronic foot drops, muscle rigidity bilaterally, chronic contractures Skin: No rashes. CENTRAL NERVOUS SYSTEM: Alert, nonverbal. No focal deficits, tone is normal in all 4 extremities. Patient is not verbal. Assessment and Plan Plan: Sepsis and bacteremia with E. coli along with 2 polymicrobial positive UTI continue with Invanz , patient has polymicrobial positive urine cultures catheter cultures are negative white blood cell count went up probably secondary to steroids -Possible aspiration pneumonia -Epistaxis which resolved at this time believed to be secondary to coagulopathy -Multiple sclerosis with chronic debility spasticity rigidity and contractures for which supportive care -Hypertension -History of DVT with recent right upper limb DVT and anti-correlation Lovenox as mentioned above -Acute respiratory failure with possible aspiration, improved now patient is at his baseline. -Acute blood loss anemia from epistaxis and perinephric hematoma from anti- correlation as mentioned above Patient Condition at Discharge: Poor Plan - Discharge Summary Discharge Rx Participant: No New Discharge Prescriptions: New Ertapenem [INVanz] 1 gm IVPB Q24H #10 bag Enoxaparin [Lovenox] 90 mg SQ DAILY #30 syringe Continue Cholecalciferol [Vitamin D3 (25 Mcg = 1000 Iu)] 1,000 unit PEG/G-TUBE DAILY Docusate Oral Soln [Colace Oral Soln] 200 mg PEG/G-TUBE BID Amantadine 50mg/5ml 100 mg PEG/G-TUBE Q12H Ascorbic Acid [Vitamin C] 250 mg PEG/G-TUBE DAILY guaiFENesin [guaiFENesin Oral Solution] 200 mg PEG/G-TUBE Q6H PRN PRN Reason: Cough Scopolamine 1.5MG/72Hr Patch [TransDerm Scop] 1 patch TRANSDERM Q72H Baclofen 5 mg PEG/G-TUBE TID Furosemide [Lasix] 20 mg PEG/G-TUBE DAILY Oxybutynin Chloride [Ditropan] 5 mg PEG/G-TUBE TID #90 tab Pregabalin [Lyrica] 150 mg PEG/G-TUBE Q12H DULoxetine HCL [Cymbalta] 60 mg PEG/G-TUBE HS Acetaminophen Oral Susp [Tylenol] 320 mg PEG/G-TUBE Q6H PRN PRN Reason: Fever And/ Or Pain Omeprazole Magnesium [PriLOSEC Oral Susp] 20 mg PEG/G-TUBE DAILY carBAMazepine [carBAMazepine Oral Susp] 300 mg PEG/G-TUBE Q8H Cranberry Fruit Extract [Cranberry] 500 mg PEG/G-TUBE Q12H Changed Metoprolol Tartrate 50 mg PEG/G-TUBE BID #0 Discontinued Warfarin [Coumadin] 5 mg PEG/G-TUBE DAILY Warfarin [Coumadin] 0.5 mg PEG/G-TUBE MOWEFR cefTRIAXone [Rocephin] 1 gm IVPB ONCE Discharge Medication List Amantadine 50mg/5ml 100 mg PEG/G-TUBE Q12H 12/28/17 [History] Ascorbic Acid [Vitamin C] 250 mg PEG/G-TUBE DAILY 12/28/17 [History] Cholecalciferol [Vitamin D3 (25 Mcg = 1000 Iu)] 1,000 unit PEG/G-TUBE DAILY 12/28/17 [History] Docusate Oral Soln [Colace Oral Soln] 200 mg PEG/G-TUBE BID 12/28/17 [History] Scopolamine 1.5MG/72Hr Patch [TransDerm Scop] 1 patch TRANSDERM Q72H 12/28/17 [History] guaiFENesin [guaiFENesin Oral Solution] 200 mg PEG/G-TUBE Q6H PRN 12/28/17 [History] Baclofen 5 mg PEG/G-TUBE TID 04/07/18 [History] Furosemide [Lasix] 20 mg PEG/G-TUBE DAILY 05/24/18 [History] Oxybutynin Chloride [Ditropan] 5 mg PEG/G-TUBE TID #90 tab 07/29/18 [Rx] Pregabalin [Lyrica] 150 mg PEG/G-TUBE Q12H 11/28/18 [History] Acetaminophen Oral Susp [Tylenol] 320 mg PEG/G-TUBE Q6H PRN 01/26/19 [History] DULoxetine HCL [Cymbalta] 60 mg PEG/G-TUBE HS 01/26/19 [History] Omeprazole Magnesium [PriLOSEC Oral Susp] 20 mg PEG/G-TUBE DAILY 01/26/19 [History] carBAMazepine [carBAMazepine Oral Susp] 300 mg PEG/G-TUBE Q8H 04/15/19 [History] Cranberry Fruit Extract [Cranberry] 500 mg PEG/G-TUBE Q12H 06/03/19 [History] Ertapenem [INVanz] 1 gm IVPB Q24H #10 bag 06/12/19 [Rx] Enoxaparin [Lovenox] 90 mg SQ DAILY #30 syringe 06/13/19 [Rx] Metoprolol Tartrate 50 mg PEG/G-TUBE BID #0 06/13/19 [Rx] Follow up Appointment(s)/Referral(s): Matteo Hernandez MD [Primary Care Provider] - 1-2 days Bruce Abebe MD [STAFF PHYSICIAN] - 6 Weeks Activity/Diet/Wound Care/Special Instructions: Ja garcia
[2019-06-13] MEDS: ENOXAPARIN 80 MG/0.8 ML SYRINGE SQ SCH (14:05)
[2019-06-13] MEDS: ERTAPENEM 1 GM in SODIUM CHLORIDE 0.9% 50 ML IVPB SCH (16:10)
--- NOTE | 2019-06-13 16:10 | CDI ---
Documentation Clarification Form Date: 06/13/2019 3:33:35 PM From: Ayanna Pedraza RN, CCDS Admit Date: 06/04/2019 1:15:00 AM Patient Name: Chris Marvin Visit Number: [id number] Discharge Date: ATTENTION: The Clinical Documentation Specialists (CDI) and [facility] Coding Staff appreciate your assistance in clarifying documentation. Please respond to the clarification below the line at the bottom and electronically sign. The CDI & [facility] Coding staff will review the response and follow-up if needed. Please note: Queries are made part of the Legal Health Record. If you have any questions, please contact the author of this message via ITS. Dr. Judi Carey 06/09/19 and subsequent progress notes your have documented acute respiratory failure and further clarification is needed. History/Risk Factors: Advanced Multiple sclerosis, Hypertension, Cognitive impairment, Neurogenic bladder Clinical indicators: 59-year-old male on 06/06/19 was transferred to ICU for uncontrolled epistaxis. He became hypoxic and A team was called. Vital signs: 06/09/19: 141/80 111 34 87 % 40 % vent mask. He has a weak cough mechanism. Per pulmonary may have some component of aspiration of blood during his episodes of epistaxis. Chest x-ray: 06/07/19 showed bilateral pulmonary infiltration, consistent with aspiration. Treatment: Telemetry monitoring Monitor O2 Sats (titrate) IV Fluids In your professional opinion, can you please clarify if these findings signify one of the following conditions? Acuity Respiratory failure with Hypoxia Acute Respiratory failure with Hypercapnia Other Diagnosis, please specify Unable to determine (Last Revision: December 2017) Acuity Respiratory failure with Hypoxia MTDD
[2019-06-13] MEDS: DEXTROSE 5% IN WATER 1,000 ML IV SCH (23:21)
--- NOTE | 2019-06-13 23:47 | P.PN ---
Subjective Progress Note Date: 06/13/19 59-year-old male who is been in hospital now for several days was being ready for discharge to home and is developed some worsening of his anemia and is receiving a unit of packed red cells currently. He came in with evidence of sepsis was found evidence of a urinary tract infection. Urine cultures evidence of an ESBL E. coli as well as Pseudomonas and enterococcus. Blood culture had only the ESBL E. coli. He is receiving antibiotic therapy and has improvement of his fever. However his leukocytosis has worsened. The patient's sister who I believe is a guardian requested that Medicare not allow his discharge home in evaluation was requested. The patient is comfortable without new acute compl aints. Denies abdominal pain. He does feel a little short of breath has no new urinary complaints. Objective - Vital Signs Vital signs: Vital Signs Temp 96.8 F L 06/13/19 23:22 Pulse 93 06/13/19 23:22 Resp 20 06/13/19 23:22 BP 147/88 06/13/19 23:22 Pulse Ox 95 06/13/19 23:22 Intake & Output 06/13/19 06/13/19 06/14/19 06:59 18:59 06:59 Intake Total 685 865 185 Output Total 550 1275 Balance 135 -410 185 Weight 65 kg Intake: IV 500 Dextrose 5% in Water 1, 500 000 ml @ 50 mls/hr IV . Q20H [facility] Rx#:[id number] Tube Feeding 185 555 185 Blood Product 310 Rc Pheresis As-3 Unit 310 [id number] Output: Urine 550 1275 Uretheral (Stein) 400 Other: Voiding Method Indwelling Catheter Indwelling Catheter Indwelling Catheter # Bowel Movements 1 - Exam Pleasant 59-year-old male comfortable evidence of pallor, receiving packed red cells at this time. Tolerating that well. HEENT: Anicteric conjunctiva are pale but moist nasal mucosa grossly intact without significant lesions, there is no thrush. Neck: The neck is supple without significant lymphadenopathy or thyromegaly. Lungs: Symmetrical bilateral air entry with few basilar crackles Heart: Regular rate and rhythm with an audible S1-S2, no S3 no S4. There is no significant murmur click or rub, PMI was nondisplaced. Abdomen: Positive bowel sounds soft and nontender without palpable masses or organomegaly. There was no guarding or rebound. Extremities: The upper extremities have excellent pulses they are symmetric, no significant petechiae or telangiectasia. No splinter hemorrhages were noted. The lower extremities are free from significant edema. The peripheral pulses were 2+ and symmetric. Neuro: Awake alert oriented to person place and time. There are no acute new gross focal sensory motor deficits. - Labs CBC & Chem 7: 06/13/19 09:58 06/13/19 07:13 Labs: Abnormal Lab Results - Last 24 Hours (Table) 06/13/19 06/13/19 06/13/19 Range/Units 07:13 07:13 09:58 WBC 13.0 H 13.5 H (3.8-10.6) k/uL RBC 2.19 L 2.47 L (4.30-5.90) m/uL Hgb 6.2 L* 6.8 L* (13.0-17.5) gm/dL Hct 19.5 L* 21.7 L (39.0-53.0) % RDW 17.9 H 17.7 H (11.5-15.5) % Plt Count 846 H D 974 H (150-450) k/uL Neutrophils # 10.0 H (1.3-7.7) k/uL Glucose 122 H (74-99) mg/dL Crossmatch 06/13/19 Range/Units 11:04 WBC (3.8-10.6) k/uL RBC (4.30-5.90) m/uL Hgb (13.0-17.5) gm/dL Hct (39.0-53.0) % RDW (11.5-15.5) % Plt Count (150-450) k/uL Neutrophils # (1.3-7.7) k/uL Glucose (74-99) mg/dL Crossmatch See Detail Microbiology - Last 24 Hours (Table) 06/10/19 14:10 Blood Culture - Preliminary Blood No Growth after 72 hours 06/10/19 14:13 Blood Culture - Preliminary Blood No Growth after 72 hours Laboratory Results WBC 13.5 k/uL (3.8-10.6) H 06/13/19 09:58 RBC 2.47 m/uL (4.30-5.90) L 06/13/19 09:58 Hgb 6.8 gm/dL (13.0-17.5) L* 06/13/19 09:58 Hct 21.7 % (39.0-53.0) L 06/13/19 09:58 MCV 87.9 fL (80.0-100.0) 06/13/19 09:58 MCH 27.4 pg (25.0-35.0) 06/13/19 09:58 MCHC 31.2 g/dL (31.0-37.0) 06/13/19 09:58 RDW 17.7 % (11.5-15.5) H 06/13/19 09:58 Plt Count 974 k/uL (150-450) H 06/13/19 09:58 Neutrophils % 74 % 06/13/19 09:58 Neutrophils % (Manual) 82 % 06/10/19 11:01 Band Neutrophils % 1 % 06/07/19 06:29 Lymphocytes % 17 % 06/13/19 09:58 Lymphocytes % (Manual) 7 % 06/10/19 11:01 Monocytes % 4 % 06/13/19 09:58 Monocytes % (Manual) 9 % 06/10/19 11:01 Eosinophils % 3 % 06/13/19 09:58 Eosinophils % (Manual) 2 % 06/10/19 11:01 Basophils % 0 % 06/13/19 09:58 Neutrophils # 10.0 k/uL (1.3-7.7) H 06/13/19 09:58 Neutrophils # (Manual) 11.64 k/uL (1.3-7.7) H 06/10/19 11:01 Lymphocytes # 2.2 k/uL (1.0-4.8) 06/13/19 09:58 Lymphocytes # (Manual) 0.99 k/uL (1.0-4.8) L 06/10/19 11:01 Monocytes # 0.6 k/uL (0-1.0) 06/13/19 09:58 Monocytes # (Manual) 1.28 k/uL (0-1.0) H 06/10/19 11:01 Eosinophils # 0.4 k/uL (0-0.7) 06/13/19 09:58 Eosinophils # (Manual) 0.28 k/uL (0-0.7) 06/10/19 11:01 Basophils # 0.1 k/uL (0-0.2) 06/13/19 09:58 Nucleated RBCs 0 /100 WBC (0-0) 06/10/19 11:01 Differential Comment 06/10/19 11:01 Manual Slide Review Performed 06/13/19 09:58 Polychromasia Present 06/10/19 11:01 Hypochromasia Slight 06/13/19 09:58 Poikilocytosis Slight 06/13/19 09:58 Anisocytosis Slight 06/13/19 09:58 PT 11.2 sec (9.0-12.0) 06/07/19 06:29 INR 1.1 (<1.2) 06/07/19 06:29 APTT 54.0 sec (22.0-30.0) H 06/03/19 23:28 Sodium 141 mmol/L (137-145) 06/13/19 07:13 Potassium 4.1 mmol/L (3.5-5.1) 06/13/19 07:13 Chloride 107 mmol/L (98-107) 06/13/19 07:13 Carbon Dioxide 23 mmol/L (22-30) 06/13/19 07:13 Anion Gap 11 mmol/L 06/13/19 07:13 BUN 17 mg/dL (9-20) 06/13/19 07:13 Creatinine 0.66 mg/dL (0.66-1.25) 06/13/19 07:13 Est GFR (CKD-EPI)AfAm >90 (>60 ml/min/1.73 sqM) 06/13/19 07:13 Est GFR (CKD-EPI)NonAf >90 (>60 ml/min/1.73 sqM) 06/13/19 07:13 Glucose 122 mg/dL (74-99) H 06/13/19 07:13 POC Glucose (mg/dL) 146 mg/dL (75-99) H 06/06/19 12:04 POC Glu Gyro Mechanic Dorothy John 06/06/19 12:04 Plasma Lactic Acid [place] 1.1 mmol/L (0.7-2.0) 06/06/19 10:42 Calcium 8.6 mg/dL (8.4-10.2) 06/13/19 07:13 Total Bilirubin 0.3 mg/dL (0.2-1.3) 06/03/19 23:28 AST 23 U/L (17-59) 06/03/19 23:28 ALT 26 U/L (21-72) 06/03/19 23:28 Alkaline Phosphatase 97 U/L (38-126) 06/03/19 23:28 Troponin I 0.035 ng/mL (0.000-0.034) H* 06/04/19 20:44 NT-Pro-B Natriuret Pep 835 pg/mL 06/04/19 03:09 Total Protein 6.1 g/dL (6.3-8.2) L 06/03/19 23:28 Albumin 3.1 g/dL (3.5-5.0) L 06/03/19 23:28 Urine Color Yellow 06/06/19 09:52 Urine Appearance Clear (Clear) 06/06/19 09:52 Urine pH 6.5 (5.0-8.0) 06/06/19 09:52 Ur Specific [place] 1.013 (1.001-1.035) 06/06/19 09:52 Urine Protein 2+ (Negative) H 06/06/19 09:52 Urine Glucose (UA) Negative (Negative) 06/06/19 09:52 Urine Ketones Negative (Negative) 06/06/19 09:52 Urine Blood Moderate (Negative) H 06/06/19 09:52 Urine Nitrite Negative (Negative) 06/06/19 09:52 Urine Bilirubin Negative (Negative) 06/06/19 09:52 Urine Urobilinogen <2.0 mg/dL (<2.0) 06/06/19 09:52 Ur Leukocyte Esterase Small (Negative) H 06/06/19 09:52 Urine RBC >182 /hpf (0-5) H 06/06/19 09:52 Urine WBC 7 /hpf (0-5) H 06/06/19 09:52 Urine WBC Clumps Many /hpf (None) H 06/04/19 00:09 Ur Squamous Epith Cells 6 /hpf (0-4) H 06/04/19 00:09 Amorphous Sediment Few /hpf (None) H 06/04/19 00:09 Urine Bacteria Few /hpf (None) H 06/04/19 00:09 Urine Mucus Rare /hpf (None) H 06/06/19 09:52 Carbamazepine 9.6 ug/mL 06/05/19 05:51 Blood Type B Positive 06/13/19 11:04 Blood Type Confirm B Positive 06/06/19 10:42 Blood Type Recheck B Pos 06/13/19 11:04 Bld Type Recheck Status No 06/13/19 11:04 Antibody Screen NEGATIVE 06/13/19 11:04 Crossmatch See Detail 06/13/19 11:04 Transfuse Plasma 06/06/19 06/06/19 14:34 Spec Expiration Date 06/16/2019 - 2304 06/13/19 11:04 - Imaging and Cardiology CT scan - abdomen: report reviewed (there is evidence of the left perin), image reviewed Assessment and Plan (1) ESBL (extended spectrum beta-lactamase) producing bacteria infection Narrative/Plan: 59-year-old male who has a history of multiple medical troubles presents to Hospital with evidence of infection and fever but evidence of E. coli ESBL urinary tract infection with bacteremia and sepsis. He was having some improvement but then developed significant epistaxis and acute blood loss anemia. Shows evidence of some significant symptomatic anemia and is receiving packed red cells today. He still does not feel very well. His fever has improved. But his leukocytosis has increased. It is possible this is all reactive from the acute blood loss anemia, but ongoing infection is of concern. While cultures are in process will transition antibiotic therapy to Zosyn and doxycycline. Current Visit: Yes Status: Acute Code(s): A49.9 - BACTERIAL INFECTION, UNSPECIFIED; Z16.12 - EXTENDED SPECTRUM BETA LACTAMASE (ESBL) RESISTANCE SNOMED Code(s): 534194820 (2) Blood loss anemia Current Visit: Yes Status: Acute Code(s): D50.0 - IRON DEFICIENCY ANEMIA SECONDARY TO BLOOD LOSS (CHRONIC) SNOMED Code(s): 878487833 (3) UTI (urinary tract infection) Current Visit: Yes Status: Acute Code(s): N39.0 - URINARY TRACT INFECTION, SITE NOT SPECIFIED SNOMED Code(s): 72575707 (4) Epistaxis Current Visit: Yes Status: Acute Code(s): R04.0 - EPISTAXIS SNOMED Code(s): 844990525
[2019-06-14] MEDS: PIPERACILLIN-TAZOBACTAM 3.375 GM in SODIUM CHLORIDE 0.9% 100 ML IVPB SCH ×2 (01:36→08:39)
[2019-06-14 08:43] LABS: Anisocytosis Slight; HGB 7.3 gm/dL (13.0-17.5); Hypochromasia Slight; MCH 27.9 pg (25.0-35.0); MCHC 31.9 g/dL (31.0-37.0); MCV 87.6 fL (80.0-100.0); Mean Platelet Volume 9.2; Platelet Count 785 k/uL (150-450); Poikilocytosis Slight; RBC 2.62 m/uL (4.30-5.90); RDW 17.7 % (11.5-15.5)
[2019-06-14] MEDS ORDERED: ENOXAPARIN 80 MG/0.8 ML SYRINGE SQ SCH (09:00)
[2019-06-14] MEDS ORDERED: SODIUM CHLORIDE 0.9% 1,000 ML IV SCH (11:15)
[2019-06-14] MEDS: PANTOPRAZOLE 40 MG/10 ML VIAL IVP SCH (11:21)
[2019-06-14] MEDS: DOXYCYCLINE 100 MG CAP PO SCH ×2 (11:22→21:49)
[2019-06-14] MEDS: DOCUSATE ORAL SOLN 100 MG/10 ML CUP PEG/G-TUBE SCH ×2 (11:22→21:46)
[2019-06-14] MEDS: ENOXAPARIN 80 MG/0.8 ML SYRINGE SQ SCH (11:22)
[2019-06-14] MEDS: BACLOFEN 10 MG TAB PEG/G-TUBE SCH ×3 (11:23→22:20)
[2019-06-14] MEDS: GABAPENTIN 100 MG CAP PO SCH ×3 (11:23→22:20)
[2019-06-14] MEDS: FUROSEMIDE 20 MG TAB PEG/G-TUBE SCH (11:23)
[2019-06-14] MEDS: CHOLECALCIFEROL 1,000 UNIT TAB PEG/G-TUBE SCH (11:24)
[2019-06-14] MEDS: METOPROLOL TARTRATE 25 MG TAB PEG/G-TUBE SCH ×2 (11:24→21:48)
[2019-06-14] MEDS: KETOROLAC 30 MG/ML 1 ML VIAL IVP PRN ×2 (11:38→21:49)
--- NOTE | 2019-06-14 12:17 | P.PN ---
Subjective 59-year-old the female was admitted the for ESBL E. coli bacteremia recurrent urinary tract infection patient does have history of multiple sclerosis. Patient the urine cultures are positive for enterococcus Pseudomonas and E. coli. Patient is on Invanz. Continue to have fevers. There is perinephric hematoma on the left side and now there is a concern for abscess in that area because of which neurology was consulted as per infectious disease. 06/10/2019 Patient went blood cell count went up to 14,000 patient fevers although resolved, urology will evaluate the patient. 06/11/2019 Patient cannot provide much of history because of his multiple sclerosis although does have pain we'll use Toradol for pain. Patient has rhonchorous breath sounds. Patient is on broad-spectrum antibiotics ertapenem at this time. I'll discuss with the sister whose medical power of district attorney regarding his CODE STATUS and possibility of palliative care. 06/12/2019 patient appears to be close to his baseline although high risk for readmission patient absolute requirements have come down patient will be dictated requiring IV antibiotics and patient will require either ertapenem will obtain a PICC line today possibility of discharge to rehabilitation tomorrow 06/14/2019 Patient is comparing of pain behind the right ear, patient will be given Toradol for that. Patient doesn't have any more fevers, white blood cell count bit elevated and fairly stable hemoglobin is 7.3, patient was switched to Zosyn and doxycycline by Dr. Floyd Review of systems: Unable to obtain as patient doesn't talk much because of multiple sclerosis All inpatient medications were reviewed and appropriate changes in these medications as dictated in the interval history and assessment and plan. Objective - Vital Signs Vital signs: Vital Signs Temp 98.6 F 06/14/19 07:16 Pulse 87 06/14/19 07:16 Resp 18 06/14/19 07:16 BP 129/93 06/14/19 07:16 Pulse Ox 97 06/14/19 07:16 Intake & Output 06/13/19 06/14/19 06/14/19 18:59 06:59 18:59 Intake Total 865 655 Output Total 1275 Balance -410 655 Weight 72 kg Intake: Intake, IV Titration 100 Amount Piperacillin-Tazobactam 3 100 .375 gm In Sodium Chloride 0.9% 100 ml @ 25 mls/hr IVPB Q8HR [facility] Rx# :[id number] Tube Feeding 555 555 Blood Product 310 Rc Pheresis As-3 Unit 310 [id number] Output: Urine 1275 Other: Voiding Method Indwelling Catheter Indwelling Catheter Indwelling Catheter # Bowel Movements 1 - Exam ENERAL EXAM: Revealed a 59-year-old white male in no distress, cachectic, chronically ill. And aphasic. HEAD: Normocephalic/atraumatic. HEENT: Evidence of old blood noted at the outer nasal mucosa, no nasal packings noted. Throat is clear. Moist mucous membranes. CHEST: Symmetrical chest expansion, minimal crackles at the bases no rhonchi and no wheezes. CVS: Regular rate and rhythm, normal S1 and S2, no gallops, no murmurs, no rubs ABDOMEN: Soft, nontender. No hepatosplenomegaly, normal bowel sounds, no guarding or rigidity. PEG tube is in place site is clean dry and intact EXTREMITIES: No cyanosis no clubbing no edema. Good pulses bilaterally. MUSCULOSKELETAL: Muscle strength and tone normal. Chronic foot drops, muscle rigidity bilaterally, chronic contractures Skin: No rashes. CENTRAL NERVOUS SYSTEM: Alert, nonverbal. No focal deficits, tone is normal in all 4 extremities. Patient is not verbal. - Labs CBC & Chem 7: 06/14/19 07:38 06/14/19 07:38 Labs: Abnormal Lab Results - Last 24 Hours (Table) 06/13/19 06/14/19 06/14/19 Range/Units 11:04 07:38 07:38 WBC 14.0 H (3.8-10.6) k/uL RBC 2.62 L (4.30-5.90) m/uL Hgb 7.3 L (13.0-17.5) gm/dL Hct 23.0 L (39.0-53.0) % RDW 17.7 H (11.5-15.5) % Plt Count 785 H (150-450) k/uL Potassium 5.2 H (3.5-5.1) mmol/L Crossmatch See Detail Microbiology - Last 24 Hours (Table) 06/10/19 14:10 Blood Culture - Preliminary Blood No Growth after 72 hours 06/10/19 14:13 Blood Culture - Preliminary Blood No Growth after 72 hours Assessment and Plan Plan: Sepsis and bacteremia with E. coli along with 2 polymicrobial positive UTI patient was listed Zosyn and doxycycline by infectious diseaserepeat UA is being obtained , patient has polymicrobial positive urine cultures catheter cultures are negative white blood cell count went up probably secondary to steroids -Possible aspiration pneumonia -Epistaxis which resolved at this time believed to be secondary to coagulopathy -Multiple sclerosis with chronic debility spasticity rigidity and contractures for which supportive care -Hypertension -History of DVT, patient was started on Lovenox will monitor hemoglobin which is fairly stable at this time -Acute respiratory failure with possible aspiration
[2019-06-14] MEDS: AMANTADINE HCL 100 MG/10 ML CUP PEG/G-TUBE SCH (13:29)
[2019-06-14] MEDS ORDERED: FLUCONAZOLE 100 MG TAB PEG/G-TUBE SCH (16:00)
[2019-06-14] MEDS ORDERED: ERTAPENEM 1 GM in SODIUM CHLORIDE 0.9% 50 ML IVPB SCH (16:15)
[2019-06-14] MEDS: DEXTROSE 5% IN WATER 1,000 ML IV SCH (21:47)
[2019-06-15] MEDS: AMANTADINE HCL 100 MG/10 ML CUP PEG/G-TUBE SCH (00:03)
[2019-06-15 01:58] VITALS: TEMP 98.6
[2019-06-15 07:33] LABS: Anisocytosis Slight; HCT 23.8 % (39.0-53.0); HGB 7.8 gm/dL (13.0-17.5); Hypochromasia Slight; MCH 29.1 pg (25.0-35.0); MCHC 32.9 g/dL (31.0-37.0); MCV 88.5 fL (80.0-100.0); Mean Platelet Volume 7.4; Platelet Count 976 k/uL (150-450); Poikilocytosis Slight; RBC 2.69 m/uL (4.30-5.90); RDW 17.8 % (11.5-15.5); WBC 9.2 k/uL (3.8-10.6)
[2019-06-15 07:50] LABS: African American GFR (CKD) >90 (>60 ml/min/1.73 sqM); Anion Gap 9 mmol/L; Blood Urea Nitrogen 15 mg/dL (9-20); Calcium 8.4 mg/dL (8.4-10.2); Carbon Dioxide 24 mmol/L (22-30); Chloride 106 mmol/L (98-107); Glucose 110 mg/dL (74-99); Potassium 3.6 mmol/L (3.5-5.1); Sodium 139 mmol/L (137-145)
--- NOTE | 2019-06-15 09:25 | P.DS ---
Providers Date of admission: 06/04/19 01:15 Attending physician: Avila Ireland MD Consults: 06/04/19 01:19 Consult Physician Routine Consulting Provider: Daniel Ricci Consult Reason/Comments: minimally elevated troponin Do you want consulting provider notified?: Yes Consult Physician Routine Consulting Provider: Sonal Farah Consult Reason/Comments: Urinary tract infection, sepsis Do you want consulting provider notified?: Yes 06/04/19 16:36 Consult Physician Stat Consulting Provider: Delma Taylor Consult Reason/Comments: Decreased LOC, AMS Do you want consulting provider notified?: Yes 06/04/19 17:49 Consult Physician Urgent Consulting Provider: Nathan Yanez Consult Reason/Comments: confusion and pneumonia Do you want consulting provider notified?: Yes 06/06/19 09:53 Consult Physician Stat Consulting Provider: Lane Shelton Consult Reason/Comments: epitaxis, decreased hemoglobin Do you want consulting provider notified?: Yes 06/06/19 22:14 Consult Physician Routine Consulting Provider: Bruce Abebe Consult Reason/Comments: large left perinephric hematoma/subcapsular hematoma Do you want consulting provider notified?: Already Contacted 06/09/19 12:35 Consult Physician Routine Consulting Provider: Dario Ladd Consult Reason/Comments: Posssible kidney abcess Do you want consulting provider notified?: Yes 06/13/19 11:03 Consult Physician Routine Consulting Provider: Ousmane Floyd Consult Reason/Comments: elevated WBC/ Family request Do you want consulting provider notified?: Yes Primary care physician: [facility] Course: 59-year-old the female was admitted the for ESBL E. coli bacteremia recurrent urinary tract infection patient does have history of multiple sclerosis. Patient the urine cultures are positive for enterococcus Pseudomonas and E. coli. Patient is on Invanz. Continue to have fevers. There is perinephric hematoma on the left side and now there is a concern for abscess in that area because of which neurology was consulted as per infectious disease. 06/10/2019 Patient went blood cell count went up to 14,000 patient fevers although resolved, urology will evaluate the patient. 06/11/2019 Patient cannot provide much of history because of his multiple sclerosis although does have pain we'll use Toradol for pain. Patient has rhonchorous breath sounds. Patient is on broad-spectrum antibiotics ertapenem at this time. I'll discuss with the sister whose medical power of insurance attorney regarding his CODE STATUS and possibility of palliative care. 06/12/2019 patient appears to be close to his baseline although high risk for readmission patient absolute requirements have come down patient will be dictated requiring IV antibiotics and patient will require either ertapenem will obtain a PICC line today possibility of discharge to rehabilitation tomorrow 06/13/2019 Patient is clinically doing well infectious-carpio and patient white blood cell count is coming down and patient is on Invanz and which she will continue for 10 days patient received a PICC line. Patient has a recent DVT in the right upper arm, patient has another PICC line now high risk for DVT. Patient was on anticoagulation with Coumadin patient that came in with epistaxis at the time INR level is therapeutic. Since patient's risk is very high for DVT all start him on anticoagulation will use Lovenox 1.5 times a body weight daily which can be reversed easily compared to new anticoagulants. Patient has a perinephric hematoma which was recent. Patient globin is 6.8 today which is low from blood draws came down from 7.1 2 days ago. Patient will be transfused with 1 unit of PRBC transfusion. 06/14/2019 Patient is comparing of pain behind the right ear, patient will be given Toradol for that. Patient doesn't have any more fevers, white blood cell count bit elevated and fairly stable hemoglobin is 7.3, patient was switched to Zosyn and doxycycline by Dr. Floyd 06/15/2019 Patient white blood cell count went up with the above-mentioned antibiotics to Zosyn and doxycycline. Patient appears to have colonization of Pseudomonas and did have bacteremia with ESBL E. coli because of which ertapenem I believe is mo re appropriate patient will be switched back to ertapenem complete ten-day course of therapy leukocytosis improved patient is doing much better today will be discharged to subacute rehab hemoglobin remained stable with Lovenox. GENERAL EXAM: Revealed a 59-year-old white male in no distress, cachectic, chronically ill. And aphasic. Patient is at his baseline now HEAD: Normocephalic/atraumatic. HEENT: Evidence of old blood noted at the outer nasal mucosa, no nasal packings noted. Throat is clear. Moist mucous membranes. CHEST: Symmetrical chest expansion, rhonchorous breath sounds CVS: Regular rate and rhythm, normal S1 and S2, no gallops, no murmurs, no rubs ABDOMEN: Soft, nontender. No hepatosplenomegaly, normal bowel sounds, no guarding or rigidity. PEG tube is in place site is clean dry and intact EXTREMITIES: No cyanosis no clubbing no edema. Good pulses bilaterally. MUSCULOSKELETAL: Muscle strength and tone normal. Chronic foot drops, muscle rigidity bilaterally, chronic contractures Skin: No rashes. CENTRAL NERVOUS SYSTEM: Alert, nonverbal. No focal deficits, tone is normal in all 4 extremities. Patient is not verbal. Assessment and Plan Plan: Sepsis and bacteremia with E. coli along with 2 polymicrobial positive UTI continue with Invanz , patient has polymicrobial positive urine cultures catheter cultures are negative white blood cell count improved -Possible aspiration pneumonia -Epistaxis which resolved at this time believed to be secondary to coagulopathy -Multiple sclerosis with chronic debility spasticity rigidity and contractures for which supportive care -Hypertension -History of DVT with recent right upper limb DVT and anti-correlation Lovenox as mentioned above -Acute respiratory failure with possible aspiration, improved now patient is at his baseline. -Acute blood loss anemia from epistaxis and perinephric hematoma from anti- coagulation as mentioned above Patient Condition at Discharge: Poor Plan - Discharge Summary Discharge Rx Participant: No New Discharge Prescriptions: New Ertapenem [INVanz] 1 gm IVPB Q24H #10 bag Enoxaparin [Lovenox] 90 mg SQ DAILY #30 syringe Continue Cholecalciferol [Vitamin D3 (25 Mcg = 1000 Iu)] 1,000 unit PEG/G-TUBE DAILY Docusate Oral Soln [Colace Oral Soln] 200 mg PEG/G-TUBE BID Amantadine 50mg/5ml 100 mg PEG/G-TUBE Q12H Ascorbic Acid [Vitamin C] 250 mg PEG/G-TUBE DAILY guaiFENesin [guaiFENesin Oral Solution] 200 mg PEG/G-TUBE Q6H PRN PRN Reason: Cough Scopolamine 1.5MG/72Hr Patch [TransDerm Scop] 1 patch TRANSDERM Q72H Baclofen 5 mg PEG/G-TUBE TID Furosemide [Lasix] 20 mg PEG/G-TUBE DAILY Oxybutynin Chloride [Ditropan] 5 mg PEG/G-TUBE TID #90 tab Pregabalin [Lyrica] 150 mg PEG/G-TUBE Q12H DULoxetine HCL [Cymbalta] 60 mg PEG/G-TUBE HS Acetaminophen Oral Susp [Tylenol] 320 mg PEG/G-TUBE Q6H PRN PRN Reason: Fever And/ Or Pain Omeprazole Magnesium [PriLOSEC Oral Susp] 20 mg PEG/G-TUBE DAILY carBAMazepine [carBAMazepine Oral Susp] 300 mg PEG/G-TUBE Q8H Cranberry Fruit Extract [Cranberry] 500 mg PEG/G-TUBE Q12H Changed Metoprolol Tartrate 50 mg PEG/G-TUBE BID #0 Discontinued Warfarin [Coumadin] 5 mg PEG/G-TUBE DAILY Warfarin [Coumadin] 0.5 mg PEG/G-TUBE MOWEFR cefTRIAXone [Rocephin] 1 gm IVPB ONCE Discharge Medication List Amantadine 50mg/5ml 100 mg PEG/G-TUBE Q12H 12/28/17 [History] Ascorbic Acid [Vitamin C] 250 mg PEG/G-TUBE DAILY 12/28/17 [History] Cholecalciferol [Vitamin D3 (25 Mcg = 1000 Iu)] 1,000 unit PEG/G-TUBE DAILY 12/28/17 [History] Docusate Oral Soln [Colace Oral Soln] 200 mg PEG/G-TUBE BID 12/28/17 [History] Scopolamine 1.5MG/72Hr Patch [TransDerm Scop] 1 patch TRANSDERM Q72H 12/28/17 [History] guaiFENesin [guaiFENesin Oral Solution] 200 mg PEG/G-TUBE Q6H PRN 12/28/17 [History] Baclofen 5 mg PEG/G-TUBE TID 04/07/18 [History] Furosemide [Lasix] 20 mg PEG/G-TUBE DAILY 05/24/18 [History] Oxybutynin Chloride [Ditropan] 5 mg PEG/G-TUBE TID #90 tab 07/29/18 [Rx] Pregabalin [Lyrica] 150 mg PEG/G-TUBE Q12H 11/28/18 [History] Acetaminophen Oral Susp [Tylenol] 320 mg PEG/G-TUBE Q6H PRN 01/26/19 [History] DULoxetine HCL [Cymbalta] 60 mg PEG/G-TUBE HS 01/26/19 [History] Omeprazole Magnesium [PriLOSEC Oral Susp] 20 mg PEG/G-TUBE DAILY 01/26/19 [History] carBAMazepine [carBAMazepine Oral Susp] 300 mg PEG/G-TUBE Q8H 04/15/19 [History] Cranberry Fruit Extract [Cranberry] 500 mg PEG/G-TUBE Q12H 06/03/19 [History] Ertapenem [INVanz] 1 gm IVPB Q24H #10 bag 06/12/19 [Rx] Enoxaparin [Lovenox] 90 mg SQ DAILY #30 syringe 06/13/19 [Rx] Metoprolol Tartrate 50 mg PEG/G-TUBE BID #0 06/13/19 [Rx] Follow up Appointment(s)/Referral(s): Matteo Hernandez MD [Primary Care Provider] - 1-2 days Bruce Abebe MD [STAFF PHYSICIAN] - 6 Weeks (Office closed at time of discharge please call SundayJune 16 to set up a follow up appointment) Activity/Diet/Wound Care/Special Instructions: Ja garcia Discharge Disposition: TRANSFER TO SNF/ECF
[2019-06-15] MEDS: ENOXAPARIN 80 MG/0.8 ML SYRINGE SQ SCH (10:21)
[2019-06-15] MEDS: DOCUSATE ORAL SOLN 100 MG/10 ML CUP PEG/G-TUBE SCH (10:22)
[2019-06-15] MEDS: DOXYCYCLINE 100 MG CAP PO SCH (10:23)
[2019-06-15] MEDS: BACLOFEN 10 MG TAB PEG/G-TUBE SCH (10:27)
[2019-06-15] MEDS: CHOLECALCIFEROL 1,000 UNIT TAB PEG/G-TUBE SCH (10:27)
[2019-06-15] MEDS: METOPROLOL TARTRATE 25 MG TAB PEG/G-TUBE SCH (10:27)
[2019-06-15] MEDS: FUROSEMIDE 20 MG TAB PEG/G-TUBE SCH (10:28)
[2019-06-15] MEDS: PANTOPRAZOLE 40 MG/10 ML VIAL IVP SCH (10:28)
[2019-06-15] MEDS: GABAPENTIN 100 MG CAP PO SCH (10:28)
[2019-06-15 11:04] VITALS: BP 136/83; PULSE 94; RESP 16
--- NOTE | 2019-06-18 10:18 | CDI ---
Documentation Clarification Form Date: 06/18/2019 From: Katia Hernandez Phone: If questions call Deb Bergeron @ [phone], Hours-8:30 am & 5 pm Stephanie Liao Admit Date: 06/04/2019 1:15:00 AM Patient Name: Chris Marvin Visit Number: [id number] Discharge Date: 06/15/2019 11:25:00 AM ATTENTION: The Clinical Documentation Specialists (CDI) and [facility] Coding Staff appreciate your assistance in clarifying documentation. Please respond to the clarification below the line at the bottom and electronically sign. The CDI & [facility] Coding staff will review the response and follow-up if needed. Please note: Queries are made part of the Legal Health Record. If you have any questions, please contact the author of this message via ITS. Dr. Judi Carey UTI was documented in your H/P and further clarification is needed ID (Dr. Farah) Mental status change, source UTI due to urinary indwelling catheter. 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 Clinical Indicators: 59-year-old male per ID consult has chronic indwelling Stein catheter and presented to [facility] with urine culture positive for ESBL E. coli. Vital Signs: Vital Signs: 155/87 92 20 99.1, WBC: 18.5 Urinalysis: with more than 182 WBC and leukocyte esterase positive. Urine Culture: Enterococcus faecalis, Pseudomonas aeruginosa, E. Coli Treatment Antibiotics: IV Rocephin, IV Invanz, Monitor Labs: CBC IV Fluids Please document the condition that these clinical indicators signify, whether Present on Admission, and cause if known: UTI With Sepsis Due to indwelling Stein catheter Not due to indwelling Stein catheter Specify organism, if known Other, please specify Unable to determine Due to indwelling Stein catheter MTDD
== END 2019-06-15 11:25 | DRG 698 ==
LOC: EC 23:04 → 3SCARD 06-04 01:15 → 2SICU 06-06 11:39 → 4SSUR 06-11 22:05
PROVIDERS: ADMIT Internal Medicine; ATTEND Internal Medicine
PROC: 30233K1 Transfusion of Nonautologous Frozen Plasma into Peripheral Vein, Percutaneous Approach (ICD-10-PCS; principal; 2019-06-06)
PROC: 30233N1 Transfusion of Nonautologous Red Blood Cells into Peripheral Vein, Percutaneous Approach (ICD-10-PCS; 2019-06-06)
PROC: 2Y41X5Z Packing of Nasal Region using Packing Material (ICD-10-PCS; 2019-06-06)
PROC: 2Y41X5Z Packing of Nasal Region using Packing Material (ICD-10-PCS; 2019-06-06)
DX: T83.518A Infection and inflammatory reaction due to other urinary catheter, initial encounter (principal); A41.51 Sepsis due to Escherichia coli [E. coli]; G93.41 Metabolic encephalopathy; J69.0 Pneumonitis due to inhalation of food and vomit; J96.01 Acute respiratory failure with hypoxia; N39.0 Urinary tract infection, site not specified; R64 Cachexia; E87.1 Hypo-osmolality and hyponatremia; D62 Acute posthemorrhagic anemia; D68.32 Hemorrhagic disorder due to extrinsic circulating anticoagulants; R47.01 Aphasia; J98.11 Atelectasis; L89.511 Pressure ulcer of right ankle, stage 1; L89.521 Pressure ulcer of left ankle, stage 1; G35 Multiple sclerosis; R13.10 Dysphagia, unspecified; Z16.12 Extended spectrum beta lactamase (ESBL) resistance; N31.9 Neuromuscular dysfunction of bladder, unspecified; R15.9 Full incontinence of feces; N28.89 Other specified disorders of kidney and ureter; R04.0 Epistaxis; T45.515A Adverse effect of anticoagulants, initial encounter; B95.2 Enterococcus as the cause of diseases classified elsewhere; K21.9 Gastro-esophageal reflux disease without esophagitis; I10 Essential (primary) hypertension; R47.1 Dysarthria and anarthria; R33.9 Retention of urine, unspecified; E86.1 Hypovolemia; M62.50 Muscle wasting and atrophy, not elsewhere classified, unspecified site; G50.0 Trigeminal neuralgia; M24.50 Contracture, unspecified joint; M21.372 Foot drop, left foot; M21.371 Foot drop, right foot; F32.9 Major depressive disorder, single episode, unspecified; Z68.25 Body mass index [BMI] 25.0-25.9, adult; Z79.01 Long term (current) use of anticoagulants; Z79.899 Other long term (current) drug therapy; Z86.718 Personal history of other venous thrombosis and embolism; Z71.3 Dietary counseling and surveillance; Z87.01 Personal history of pneumonia (recurrent); Z74.01 Bed confinement status; Z86.14 Personal history of Methicillin resistant Staphylococcus aureus infection; Z93.1 Gastrostomy status; Z87.440 Personal history of urinary (tract) infections; Z86.19 Personal history of other infectious and parasitic diseases; Z88.1 Allergy status to other antibiotic agents; Y84.6 Urinary catheterization as the cause of abnormal reaction of the patient, or of later complication, without mention of misadventure at the time of the procedure
CPT/HCPCS: 36410; 36415; 51702; 70450; 71045; 74176; 76937; 80048; 80053; 80156; 81001; 83605; 83880; 84132; 84484; 85025; 85027; 85610; 85730; 86850; 86900; 86901; 86920; 87040; 87077; 87086; 87186; 93005; 93306; 94760; 99285

== ENCOUNTER 2019-07-29 22:36 | Inpatient (IN) | payer MEDICARE, OTHER ==
[2019-07-29] MEDS ORDERED: ACETAMINOPHEN TAB 325 MG TAB PEG/G-TUBE STA (23:10)
[2019-07-29 23:32] LABS: Basophils % (A) 0 %; Eosinophils # (A) 0.3 k/uL (0-0.7); Eosinophils % (A) 2 %; HCT 40.2 % (39.0-53.0); Lymphocytes # (A) 1.1 k/uL (1.0-4.8); Lymphocytes % (A) 9 %; MCH 27.3 pg (25.0-35.0); MCHC 32.7 g/dL (31.0-37.0); MCV 83.6 fL (80.0-100.0); Mean Platelet Volume 6.4; Monocytes # (A) 0.9 k/uL (0-1.0); Monocytes % (A) 8 %; Neutrophils # (A) 9.6 k/uL (1.3-7.7); Neutrophils % (A) 79 %; Platelet Count 475 k/uL (150-450); RBC 4.81 m/uL (4.30-5.90); RDW 15.2 % (11.5-15.5); WBC 12.2 k/uL (3.8-10.6)
[2019-07-29 23:36] LABS: ALT 23 U/L (21-72); AST 15 U/L (17-59); African American GFR (CKD) >90 (>60 ml/min/1.73 sqM); Albumin 3.6 g/dL (3.5-5.0); Alkaline Phosphatase 117 U/L (38-126); Anion Gap 13 mmol/L; Blood Urea Nitrogen 17 mg/dL (9-20); Calcium 8.9 mg/dL (8.4-10.2); Carbon Dioxide 23 mmol/L (22-30); Chloride 98 mmol/L (98-107); Glucose 104 mg/dL (74-99); Potassium 4.3 mmol/L (3.5-5.1); Sodium 134 mmol/L (137-145); Total Bilirubin 0.3 mg/dL (0.2-1.3); Total Protein 7.5 g/dL (6.3-8.2)
[2019-07-29 23:41] LABS: HGB 13.1 gm/dL (13.0-17.5)
[2019-07-29] MEDS: SODIUM CHLORIDE 0.9% 500 ML 500 ML IV SCH (23:42)
[2019-07-30 00:01] LABS: Partial Thromboplastin Time 33.4 sec (22.0-30.0); Prothrombin Time 10.7 sec (9.0-12.0)
--- NOTE | 2019-07-30 00:26 | XR ---
EXAM: XR Chest, 1 View CLINICAL HISTORY: ITS.REASON XR Reason: Fever TECHNIQUE: Frontal view of the chest. COMPARISON: 06/11/19 FINDINGS: Interval decrease in bilateral airspace consolidation. However, there are persistent infiltrates, most notably in the right upper lobe. Heart remains enlarged. Tortuous thoracic aorta. The knob again exerts mass effect upon the atria trachea, deflecting it to the right. No clear luminal narrowing. Osseous degenerative changes. IMPRESSION: Interval decrease in airspace consolidation, but persistent infiltrates, most pronounced in the right upper lobe. Concern for pneumonia.
[2019-07-30 00:36] LABS: Appearance,Urine Cloudy (Clear); Bacteria,Urine Moderate /hpf; Bilirubin,Urine Negative (Negative); Blood,Urine Trace (Negative); Color,Urine Yellow; Glucose,Urine (UA) Negative (Negative); Ketones,Urine Negative (Negative); Leukocyte Esterase,Urine Large (Negative); Nitrite,Urine Negative (Negative); PH, Urine 6.5 (5.0-8.0); Protein,Urine 1+ (Negative); RBC,Urine 4 /hpf (0-5); Specific Gravity,Urine 1.011 (1.001-1.035); Squamous Epithelial Cell,Urine 4 /hpf (0-4); Urobilinogen,Urine <2.0 mg/dL (<2.0); WBC,Urine >182 /hpf (0-5)
[2019-07-30] MEDS ORDERED: PIPERACILLIN-TAZOBACTAM 3.375 GM in SODIUM CHLORIDE 0.9% 100 ML IVPB STA ×2 (00:48→00:53)
[2019-07-30] MEDS ORDERED: LEVOFLOXACIN 750MG-D5W PMX 750 MG in DEXTROSE/WATER 1 150ML.BAG IVPB STA (00:48)
--- NOTE | 2019-07-30 01:25 | ED ---
Fever HPI - General Chief Complaint: Fever Stated Complaint: poss sepsis Time Seen by Provider: 07/29/19 22:38 Source: EMS Mode of arrival: EMS - History of Present Illness Initial Comments: 59-year-old male patient with past medical history significant for multiple sclerosis, bedbound, nonverbal presents to the emergency department today for evaluation of fever and cough. Patient resides at [facility]. Patient has been coughing for the last 2-3 days. Has been sleeping more than usual. Patient has indwelling Stein catheter has history of multidrug resistant urinary tract infection. Upon arrival blood pressure is elevated. Did have a temperature of 101F. Patient denies any pain, nasuea, or vomiting. Family is present. Denies any wounds. - Related Data Home Medications Medication Instructions Recorded Confirmed Amantadine 50mg/5ml 100 mg PEG/G-TUBE Q12H 12/28/17 07/29/19 Ascorbic Acid [Vitamin C] 250 mg PEG/G-TUBE DAILY 12/28/17 07/29/19 Cholecalciferol [Vitamin D3 (25 1,000 unit PEG/G-TUBE DAILY 12/28/17 07/29/19 Mcg = 1000 Iu)] Docusate Oral Soln [Colace Oral 200 mg PEG/G-TUBE BID 12/28/17 07/29/19 Soln] Scopolamine 1.5MG/72Hr Patch 1 patch TRANSDERM Q72H 12/28/17 07/29/19 [TransDerm Scop] guaiFENesin [guaiFENesin Oral 200 mg PEG/G-TUBE Q6H PRN 12/28/17 07/29/19 Solution] Baclofen 5 mg PEG/G-TUBE TID 04/07/18 07/29/19 Furosemide [Lasix] 20 mg PEG/G-TUBE DAILY 05/24/18 07/29/19 Acetaminophen Oral Susp [Tylenol] 320 mg PEG/G-TUBE Q6H PRN 01/26/19 07/29/19 Omeprazole Magnesium [PriLOSEC 20 mg PEG/G-TUBE DAILY 01/26/19 07/29/19 Oral Susp] carBAMazepine [carBAMazepine Oral 300 mg PEG/G-TUBE Q8H 04/15/19 07/29/19 Susp] Cranberry Fruit Extract [Cranberry] 500 mg PEG/G-TUBE Q12H 06/03/19 07/29/19 Metoprolol Tartrate [Lopressor] 50 mg PEG/G-TUBE BID 07/29/19 07/29/19 Previous Rx's Medication Instructions Recorded Oxybutynin Chloride [Ditropan] 5 mg PEG/G-TUBE TID #90 tab 07/29/18 Allergies Allergy/AdvReac Type Severity Reaction Status Date / Time meropenem [From Merrem] Allergy Rash/Hives Verified 07/29/19 22:45 Review of Systems ROS Statement: Those systems with pertinent positive or pertinent negative responses have been documented in the HPI. ROS Other: All systems not noted in ROS Statement are negative. Past Medical History Past Medical History: Deep Vein Thrombosis (DVT), GERD/Reflux, Hypertension, Musculoskeletal Disorder, Pneumonia, Renal Disease Additional Past Medical History / Comment(s): MS, cognitive impariment/ non verbal, NPO-peg tube,DVT-arm , IDC ,INCONT OF BOWEL. DYSARTHRIA/ANARTHRIA/DYSPHAGIA. BEDBOUND, RACHEL LIFT TO W/C, neurogenic bladder,m History of Any Multi-Drug Resistant Organisms: ESBL, MRSA Date of last positivie culture/infection: ESBL 06/04/19 MRSA 10/21/17 MDRO Source:: BLOOD, URINE Additional Past Surgical History / Comment(s): PEG TUBE, HX OF GASTROSTOMY, PICC LINE Past Anesthesia/Blood Transfusion Reactions: Unable to Obtain Past Psychological History: Depression Smoking Status: Never smoker Past Alcohol Use History: None Reported Past Drug Use History: None Reported - Past Family History Father Family Medical History: Unable to Obtain Additional Family Medical History / Comment(s): patient is nonverbal Mother Family Medical History: Unable to Obtain Additional Family Medical History / Comment(s): patient is nonverbal General Exam General appearance: alert, in no apparent distress, other (This is a well- developed, well-nourished adult male patient in no acute distress. Vital signs upon presentation are temperature 99.8F, pulse 75, respirations 20, blood pressure 169/113, pulse ox 96% on room air.) Eye exam: Present: normal appearance, PERRL, EOMI. Absent: scleral icterus, conjunctival injection, periorbital swelling ENT exam: Present: normal exam. Absent: mucous membranes moist (Dry mucous membranes) Respiratory exam: Present: rales, other (congested cough). Absent: normal lung sounds bilaterally, respiratory distress, wheezes, rhonchi, stridor Cardiovascular Exam: Present: regular rate, normal rhythm, normal heart sounds. Absent: systolic murmur, diastolic murmur, rubs, gallop, clicks GI/Abdominal exam: Present: soft, normal bowel sounds. Absent: distended, tenderness, guarding, rebound, rigid Neurological exam: Present: alert, oriented X3, CN II-XII intact Psychiatric exam: Present: normal affect, normal mood Skin exam: Present: warm, dry, intact, normal color. Absent: rash Course Vital Signs 07/29/19 07/29/19 07/30/19 22:40 23:03 00:21 Temperature 99.8 F H 97.5 F L Pulse Rate 75 92 Respiratory 20 20 18 Rate Blood Pressure 169/113 144/94 O2 Sat by Pulse 96 97 Oximetry Medical Decision Making - Medical Decision Making 59-year-old male patient presents to the emergency department today for evaluation of cough, fever, and fatigue. Physical examination revealed soft nontender abdomen. He did have rales bilaterally. Labs reviewed and did reveal elevated white blood cell count at 12.2. Normal lactic acid. Urine is positive for infection. He has had multiple cultures in the past with multidrug resistant organisms. Chest x-ray shows pneumonia. He'll be started on Levaquin and Zosyn. He'll be admitted for further evaluation and monitoring. Family has requested that he is not seen nor evaluated by Dr. Carey...other [facility] physicians are acceptable. - Lab Data Result diagrams: 07/29/19 22:51 07/29/19 22:51 Lab Results 07/29/19 07/29/19 07/29/19 Range/Units 22:51 22:51 22:51 WBC 12.2 H (3.8-10.6) k/uL RBC 4.81 (4.30-5.90) m/uL Hgb 13.1 D (13.0-17.5) gm/dL Hct 40.2 (39.0-53.0) % MCV 83.6 (80.0-100.0) fL MCH 27.3 (25.0-35.0) pg MCHC 32.7 (31.0-37.0) g/dL RDW 15.2 (11.5-15.5) % Plt Count 475 H (150-450) k/uL Neutrophils % 79 % Lymphocytes % 9 % Monocytes % 8 % Eosinophils % 2 % Basophils % 0 % Neutrophils # 9.6 H (1.3-7.7) k/uL Lymphocytes # 1.1 (1.0-4.8) k/uL Monocytes # 0.9 (0-1.0) k/uL Eosinophils # 0.3 (0-0.7) k/uL Basophils # 0.0 (0-0.2) k/uL PT (9.0-12.0) sec INR (<1.2) APTT (22.0-30.0) sec Sodium 134 L (137-145) mmol/L Potassium 4.3 (3.5-5.1) mmol/L Chloride 98 (98-107) mmol/L Carbon Dioxide 23 (22-30) mmol/L Anion Gap 13 mmol/L BUN 17 (9-20) mg/dL Creatinine 0.69 (0.66-1.25) mg/dL Est GFR (CKD-EPI)AfAm >90 (>60 ml/min/1.73 sqM) Est GFR (CKD-EPI)NonAf >90 (>60 ml/min/1.73 sqM) Glucose 104 H (74-99) mg/dL Plasma Lactic Acid Taurus 0.8 (0.7-2.0) mmol/L Calcium 8.9 (8.4-10.2) mg/dL Total Bilirubin 0.3 (0.2-1.3) mg/dL AST 15 L (17-59) U/L ALT 23 (21-72) U/L Alkaline Phosphatase 117 (38-126) U/L Total Protein 7.5 (6.3-8.2) g/dL Albumin 3.6 (3.5-5.0) g/dL Urine Color Urine Appearance (Clear) Urine pH (5.0-8.0) Ur Specific Clay (1.001-1.035) Urine Protein (Negative) Urine Glucose (UA) (Negative) Urine Ketones (Negative) Urine Blood (Negative) Urine Nitrite (Negative) Urine Bilirubin (Negative) Urine Urobilinogen (<2.0) mg/dL Ur Leukocyte Esterase (Negative) Urine RBC (0-5) /hpf Urine WBC (0-5) /hpf Urine WBC Clumps (None) /hpf Ur Squamous Epith Cells (0-4) /hpf Urine Bacteria (None) /hpf Influenza Type A RNA (Not Detectd) Influenza Type B (PCR) (Not Detectd) 07/29/19 07/29/19 07/30/19 Range/Units 22:51 22:51 00:01 WBC (3.8-10.6) k/uL RBC (4.30-5.90) m/uL Hgb (13.0-17.5) gm/dL Hct (39.0-53.0) % MCV (80.0-100.0) fL MCH (25.0-35.0) pg MCHC (31.0-37.0) g/dL RDW (11.5-15.5) % Plt Count (150-450) k/uL Neutrophils % % Lymphocytes % % Monocytes % % Eosinophils % % Basophils % % Neutrophils # (1.3-7.7) k/uL Lymphocytes # (1.0-4.8) k/uL Monocytes # (0-1.0) k/uL Eosinophils # (0-0.7) k/uL Basophils # (0-0.2) k/uL PT 10.7 (9.0-12.0) sec INR 1.0 (<1.2) APTT 33.4 H (22.0-30.0) sec Sodium (137-145) mmol/L Potassium (3.5-5.1) mmol/L Chloride (98-107) mmol/L Carbon Dioxide (22-30) mmol/L Anion Gap mmol/L BUN (9-20) mg/dL Creatinine (0.66-1.25) mg/dL Est GFR (CKD-EPI)AfAm (>60 ml/min/1.73 sqM) Est GFR (CKD-EPI)NonAf (>60 ml/min/1.73 sqM) Glucose (74-99) mg/dL Plasma Lactic Acid Taurus (0.7-2.0) mmol/L Calcium (8.4-10.2) mg/dL Total Bilirubin (0.2-1.3) mg/dL AST (17-59) U/L ALT (21-72) U/L Alkaline Phosphatase (38-126) U/L Total Protein (6.3-8.2) g/dL Albumin (3.5-5.0) g/dL Urine Color Yellow Urine Appearance Cloudy (Clear) Urine pH 6.5 (5.0-8.0) Ur Specific Clay 1.011 (1.001-1.035) Urine Protein 1+ H (Negative) Urine Glucose (UA) Negative (Negative) Urine Ketones Negative (Negative) Urine Blood Trace H (Negative) Urine Nitrite Negative (Negative) Urine Bilirubin Negative (Negative) Urine Urobilinogen <2.0 (<2.0) mg/dL Ur Leukocyte Esterase Large H (Negative) Urine RBC 4 (0-5) /hpf Urine WBC >182 H (0-5) /hpf Urine WBC Clumps Occasional H (None) /hpf Ur Squamous Epith Cells 4 (0-4) /hpf Urine Bacteria Moderate H (None) /hpf Influenza Type A RNA Not Detected (Not Detectd) Influenza Type B (PCR) Not Detected (Not Detectd) - EKG Data -: EKG Interpreted by [place] EKG Comments: EKG obtained at 2315 shows normal sinus rhythm with a ventricular rate of 88, NJ interval. QRS duration 84, QT 346, QTC 418. No evidence of ST elevation or depression. Evaluation is somewhat limited by artifact. - Radiology Data Radiology results: report reviewed, image reviewed One view x-ray of the chest is obtained. Report was reviewed in its entirety. Impression by Dr. Vu shows interval decrease in airspace consolidation, but pe rsistent infiltrates, most pronounced in the right upper lobe. Concern for pneumonia. Disposition Clinical Impression: Urinary tract infection, Pneumonia Disposition: ADMITTED IP TO THIS [facility] Condition: Serious Referrals: Matteo Hernandez MD [Primary Care Provider] - 1-2 days Decision to Admit Reason: Admit from EC Decision Date: 07/30/19 Decision Time: 01:29
[2019-07-30] MEDS: SODIUM CHLORIDE 0.9% 500 ML 500 ML IV SCH (01:28)
[2019-07-30] MEDS ORDERED: IPRATROPIUM-ALBUTEROL 3 ML NEB INHALATION PRN (01:29)
[2019-07-30] MEDS ORDERED: PNEUMONIA PROTOCOL UTILIZED 1 EACH MISC PO PRN (01:29)
[2019-07-30] MEDS: IPRATROPIUM-ALBUTEROL 3 ML NEB INHALATION SCH ×4 (08:10→20:19)
[2019-07-30] MEDS ORDERED: ACETAMINOPHEN ORAL SUSP 160 MG/5 ML CUP PEG/G-TUBE PRN (10:40)
[2019-07-30] MEDS ORDERED: guaiFENesin SYRUP 100MG/5ML 200 MG/10 ML CUP PEG/G-TUBE PRN (10:40)
[2019-07-30] MEDS: BACLOFEN 10 MG TAB PEG/G-TUBE SCH ×3 (11:28→21:48)
[2019-07-30] MEDS: OXYBUTYNIN CHLORIDE 5 MG TAB PEG/G-TUBE SCH ×3 (11:28→21:48)
[2019-07-30] MEDS: HEPARIN SODIUM,PORCINE 5,000 UNIT/ML 1 ML VIAL SQ SCH ×2 (11:28→21:47)
[2019-07-30] MEDS: FUROSEMIDE 20 MG TAB PEG/G-TUBE SCH (11:28)
[2019-07-30] MEDS: CHOLECALCIFEROL 1,000 UNIT TAB PEG/G-TUBE SCH (11:28)
[2019-07-30] MEDS: METOPROLOL TARTRATE 50 MG TAB PEG/G-TUBE SCH ×2 (11:28→21:47)
[2019-07-30] MEDS: PIPERACILLIN-TAZOBACTAM 3.375 GM in SODIUM CHLORIDE 0.9% 100 ML IVPB SCH ×2 (11:29→17:00)
[2019-07-30] MEDS: SCOPOLAMINE 1.5MG/72HR PATCH TRANSDERM SCH (11:30)
[2019-07-30] MEDS: AMANTADINE HCL 100 MG/10 ML CUP PEG/G-TUBE SCH ×2 (11:30→21:47)
[2019-07-30] MEDS: DOCUSATE ORAL SOLN 100 MG/10 ML CUP PEG/G-TUBE SCH ×2 (11:31→21:47)
[2019-07-30] MEDS: PANTOPRAZOLE SODIUM 40 MG GRANULE PKT PEG/G-TUBE SCH (11:31)
[2019-07-30 12:33] LABS: Glucose,Whole Blood 122 mg/dL (75-99)
--- NOTE | 2019-07-30 16:45 | HP ---
HISTORY AND PHYSICAL DATE OF SERVICE: 07/30/2019 CHIEF COMPLAINT: Fever. HISTORY OF PRESENT ILLNESS: This 59-year-old gentleman with a past medical history of multiple medical problems, including DVT, history of GERD, hypertension, history of pneumonia, history of multiple sclerosis, cognitive impairment, is on a PEG tube placement, also had multiple infections, including ESBL and MRSA also. The patient was previously admitted to [facility] with features of sepsis and bacteremia with E coli and possible aspiration pneumonia. The patient also had epistaxis during that time. Currently the patient is having features of cough. The patient lives in [facility]. The patient is sleeping more than normal and the patient also had a fever up to 101 degrees. Aspiration pneumonia was suspected. Patient was admitted for further evaluation and treatment. The patient has got significant MS and gait dysfunction. Unable to give a coherent history. Most of the history is taken from my discussion with staff as well as review of the chart. PAST MEDICAL HISTORY: 1. History of DVT. 2. History of GERD. 3. Hypertension. 4. History of musculoskeletal dysfunction, MS. 5. History of dysarthria. 6. ESBL MRSA. HOME MEDICATIONS: 1. Carbamazepine 300 mg per PEG tube q.8 p.r.n. 2. Lasix 20 mg. 3. Colace. 4. Cranberry juice. 5. Vitamin D3 1000 mg. 6. Baclofen 5 mg per PEG. 7. Vitamin C 250 mg. 8. Amantadine 100 mg per PEG. 9. Guaifenesin 200 mg per PEG. 10.Ditropan 5 mg per PEG. 11.Prilosec 20 mg per PEG. 12.Lopressor 50 mg per PEG. 13.Jevity 1000 mg per PEG. 14.Tylenol 325 mg p.o. daily. 15.Scopolamine 1.5 q.72 hours. ALLERGIES: MEROPENEM. Family history, social history, review of systems could not be taken because of the patient's mental status. No history of smoking per record. PHYSICAL EXAMINATION: Patient is stuporous. Pulse 84, blood pressure 121/75, respirations 16, temperature 97.6, pulse ox 94% on room air. HEENT: Conjunctivae normal. Oral mucosa moist. NECK: No jugular venous distention. CARDIOVASCULAR SYSTEM: S1, S2 muffled. NAUSEA RESPIRATORY SYSTEM: Breath sounds diminished at the bases. A few scattered rhonchi and crackles. ABDOMEN: Soft. PEG tube in situ. LEGS: No rhonchi. No crackles. NERVOUS SYSTEM: Diffuse contractures; otherwise unable to cooperate with the exam. SKIN: No ulcer, rash, bleeding. JOINTS: No active deforming arthropathy. Contracted. LYMPHATICS: No lymph node palpable in neck, axillae or groin. LABS: WBC 12.2 and sodium 134. ASSESSMENT: 1. Possible aspiration pneumonia with sepsis, present on admission. 2. Change in mental status, acute metabolic encephalopathy, possibly secondary to sepsis with chronic metabolic encephalopathy. 3. Acute urinary tract infection, present on admission. 4. History of previous recurrent urinary tract infections. 5. Multiple sclerosis contractures. 6. Status post PEG tube. 7. Deep venous thrombosis. 8. Gastroesophageal reflux disease. 9. Hypertension. 10.History of degenerative joint disease. 11.History of bowel incontinence. 12.History of neurogenic bladder. 13.History of extended-spectrum beta-lactamase and methicillin-resistant Staphylococcus aeruginosa. 14.History of depression. RECOMMENDATIONS AND DISCUSSION: In this 59-year-old gentleman who presented with multiple medical problems, we will monitor the patient closely, continue the current medications, continue symptomatic treatment. Otherwise at this time I would initiate broad-spectrum IV antibiotics. Infectious disease consultations. The patient is started on IV Zosyn at this time. Otherwise, Pulmonary is also consulted. Aspiration precautions. Guarded prognosis because of multiple complex medical issues. Further recommendations to follow. A copy of this dictation is being forwarded to Dr. Hernandez, who is the primary physician. MMODL / IJN: [id number] /
[2019-07-30 17:12] LABS: Glucose,Whole Blood 110 mg/dL (75-99)
--- NOTE | 2019-07-30 20:22 | CONS ---
CONSULTATION PULMONARY/CRITICAL CARE CONSULTATION: REASON FOR CONSULTATION: Fever/sepsis/urinary tract infection. This is a 59-year-old male with a history of severe multiple sclerosis. He is bed- bound. He is nonverbal. He was brought to the emergency department for evaluation of fever and cough. His chest x-ray is reviewed. It is compared to a prior x-ray done in June, and actually his chest x-ray has improved. He does have some diffuse bilateral infiltrates, more so on the right upper lobe, but looking back at his x-ray in June, his abnormalities were more significant. Of note was the fact that his urine appears to be dirty, with positive leukocyte esterase, nitrite positive urine with many WBCs, WBC clumps and bacteria. I suspect more likely a urinary tract infection. Apparently, according to the staff at [facility], the patient had been having a fever for about 2 or 3 days prior to admission and also was coughing. Currently he is not on any supplemental oxygen. He looks very comfortable. In addition, the patient's urine appears to show what will likely be a urinary tract infection. His temperature was apparently 101 degrees. He has a prior history of multiple gram-negative bacteria in his urine with urinary tract infections and also bacteria that were extended-spectrum beta lactamase-producing bacteria. He himself can give no history. All the history is obtained from the medical record and prior admissions and consultations. He actually saw my partner Dr. Yanez in June. CURRENT MEDICATIONS: Current medications include: 1. Amantadine. 2. Ascorbic acid. 3. Vitamin D3. 4. Colace. 5. Scopolamine patch. 6. Guaifenesin solution. 7. Baclofen. 8. Lasix. 9. Tylenol. 10.Omeprazole. 11.Tegretol. 12.Cranberry fruit extract. 13.Metoprolol. 14.Ditropan. ALLERGIES: MEROPENEM. MEDICAL HISTORY: Medical history includes: 1. Deep venous thrombosis. 2. GERD. 3. Hypertension. 4. Musculoskeletal disorder, i.e., MS. 5. Pneumonia. 6. Renal disease. 7. In addition, the patient has significant cognitive impairment and is nonverbal. He does have a Stein catheter in. He has a PEG tube in place. He is incontinent of bowel. He has dysphagia and he has a neurogenic bladder. In addition, he has had multiple episodes of various urinary tract infections, including proteus, E coli and pseudomonas. In addition, he does have a history of ESBL-producing bacteria as well as MRSA. SURGICAL HISTORY: Surgical history includes, among other things, a PICC line and a PEG tube. SOCIAL HISTORY: Social history is apparently negative for tobacco, alcohol or illicit drug use. FAMILY HISTORY: Family history not able to be obtained from this patient. REVIEW OF SYSTEMS: Review of systems is not able to be obtained from this patient. Apparently his reason for coming into the hospital includes temperature elevation of 101, some chest congestion and coughing, and suspected possible urinary tract infection. PHYSICAL EXAMINATION: VITAL SIGNS: Current vital signs are reviewed. Temperature 97.6, heart rate 84, respiratory rate 16, blood pressure 121/75, mean 90, room-air saturation 95%. GENERAL APPEARANCE: He looks very comfortable in the room there. No respiratory distress. He was not coughing. Not using accessory muscles of respiration. No audible wheezing. HEENT: HEENT examination is grossly unremarkable. NECK: Supple. CARDIOVASCULAR: Cardiovascular examination was regular rhythm and rate. He is in sinus rhythm. Heart rate about mid 80. S1, S2 normal. No distinct murmur. LUNGS: Lungs reveal very minimal rhonchi. No wheezes or crackles. He cannot take deep breaths upon command. Breath sounds are equal bilaterally. ABDOMEN: Soft. EXTREMITIES: Contracted. He has some very minimal lower extremity edema. SKIN: Without obvious rash. NEUROLOGIC: Neurologic examination is difficult to assess. He is nonverbal. He does have a history of severe MS. LABS/IMAGING: Reviewed. White count 12.2, hemoglobin 13.1, hematocrit 40.2, platelet count 475,000. PT/INR normal. PTT 33.4. Electrolytes are all normal save for sodium of 134. Glucose 104. Liver function tests are essentially normal. Urine is yellow and cloudy. Urine pH 6.5, specific gravity 1.011. There is 1+ protein. Trace blood, large leukocyte esterase, 4 RBCs, greater than 182 WBCs, occasional white blood cell clumps and moderate bacteria. Nitrite was negative. Influenza studies were negative. As previously mentioned, the chest x-ray shows some minimal to mild diffuse bilateral infiltrates, maybe a bit worse in the right upper lobe, as the fissure can be seen more prominently on the right side. The trachea is tortuous. I am not sure if this is because of aortic knob rotation or a goiter. Microbiologic studies are currently pending or negative. MEDICATIONS: Medications currently include usual medications, and in addition he is on Levaquin and Zosyn. ASSESSMENT: 1. Probable urinary tract infection/urosepsis, probably from gram-negative bacteria such as proteus, Escherichia coli, pseudomonas, which he has had in the past. Possible ESBL organism. 2. Doubt significant pneumonia. Chest x-ray is actually improved compared to one done in June. He is on no supplemental oxygen and he does not appear to be having any respiratory difficulty. 3. History of multiple sclerosis. 4. Status post PEG tube placement. 5. Multiple previous urinary tract infections. 6. Recent Escherichia coli bacteremia in June of this year. 7. History of deep venous thrombosis. 8. History of gastroesophageal reflux disease. 9. History of hypertension. 10.History of pneumonia. 11.History of severe cognitive impairment. 12.Bowel incontinence. 13.Urinary incontinence. 14.History of neurogenic bladder. PLAN: Antibiotics are adequate. Will wait for results of urine culture. I do not suspect he has significant pneumonia. Currently his respiratory status is stable. The antibiotics are more than adequate for whatever might be going on in his lungs. Will await blood and urine specimens. No additional recommendations are made. The patient's head of bed should be elevated at all times. He should have aspiration precautions. No additional recommendations are made. MMODL / IJN: [id number] /
[2019-07-30 23:53] LABS: Glucose,Whole Blood 100 mg/dL (75-99)
--- NOTE | 2019-07-30 23:54 | P.CONS ---
History of Present Illness - Reason for Consult Consult date: 07/30/19 Fever and question of pneumonia Requesting physician: Dara Crowe - Chief Complaint Fever 2 days - History of Present Illness Patient is 59-year-old male with a past medical history significant for MS patient did have a bedbound state and is currently nonverbal patient did have history of recurrent urinary tract infection catheter associated with recent admission this facility with ESBL E. coli that was treated with IV Invanz back in June 2019 patient has not been brought to the [facility] ER for evaluation of fever apparently the patient did have fever at the correction for the last day or 2 there is no other symptoms of any cough or congestion choking on the food or any vomiting patient was evaluated by the physician on telemetry. The patient did have refilled for 99.8 patient did have elevated white count of 12,000 the patient UA has been positive for 6 additional was improving infiltrate compared to previous x-ray with a diagnosis of possible pneumonia and UTI the patient has been started on Zosyn and admitted to the hospital infection he was consulted for further recommendation regarding antibiotic therapy most information has been obtained from review the chart and talking to nursing staff as the patient did better while in history and no family available at the bedside Review of Systems Positive points has been mentioned in HPI complete review could not be obtained because of his underlying mental status Past Medical History Past Medical History: Deep Vein Thrombosis (DVT), GERD/Reflux, Hypertension, Musculoskeletal Disorder, Pneumonia, Renal Disease Additional Past Medical History / Comment(s): MS, cognitive impariment/ non verbal, NPO-peg tube,DVT-arm , IDC ,INCONT OF BOWEL. DYSARTHRIA/ANARTHRIA/DYSPHAGIA. BEDBOUND, RACHEL LIFT TO W/C, neurogenic bladder,m History of Any Multi-Drug Resistant Organisms: ESBL, MRSA Year Discovered:: ESBL 06/04/19 MRSA 10/21/17 MDRO Source:: BLOOD, URINE Additional Past Surgical History / Comment(s): PEG TUBE, HX OF GASTROSTOMY, Past Anesthesia/Blood Transfusion Reactions: Unable to Obtain Past Psychological History: Depression Additional Psychological History / Comment(s): PT RESIDES AT [facility] [phone] Smoking Status: Unknown if ever smoked Past Alcohol Use History: None Reported Past Drug Use History: None Reported - Past Family History Father Family Medical History: Unable to Obtain Additional Family Medical History / Comment(s): patient is nonverbal Mother Family Medical History: Unable to Obtain Additional Family Medical History / Comment(s): patient is nonverbal Medications and Allergies Home Medications Medication Instructions Recorded Confirmed Type Amantadine 50mg/5ml 100 mg PEG/G-TUBE Q12H 12/28/17 07/30/19 History Ascorbic Acid [Vitamin C] 250 mg PEG/G-TUBE DAILY 12/28/17 07/30/19 History Cholecalciferol [Vitamin D3 (25 1,000 unit PEG/G-TUBE DAILY 12/28/17 07/30/19 History Mcg = 1000 Iu)] Docusate Oral Soln [Colace Oral 200 mg PEG/G-TUBE BID 12/28/17 07/30/19 History Soln] Scopolamine 1.5MG/72Hr Patch 1 patch TRANSDERM Q72H 12/28/17 07/29/19 History [TransDerm Scop] guaiFENesin [guaiFENesin Oral 200 mg PEG/G-TUBE Q6H PRN 12/28/17 07/30/19 History Solution] Baclofen 5 mg PEG/G-TUBE TID 04/07/18 07/30/19 History Furosemide [Lasix] 20 mg PEG/G-TUBE DAILY 05/24/18 07/30/19 History Oxybutynin Chloride [Ditropan] 5 mg PEG/G-TUBE TID #90 tab 07/29/18 07/30/19 Rx Acetaminophen Oral Susp [Tylenol] 320 mg PEG/G-TUBE Q6H PRN 01/26/19 07/30/19 History Omeprazole Magnesium [PriLOSEC 20 mg PEG/G-TUBE DAILY 01/26/19 07/30/19 History Oral Susp] carBAMazepine [carBAMazepine Oral 300 mg PEG/G-TUBE Q8H 04/15/19 07/30/19 History Susp] Cranberry Fruit Extract [Cranberry] 500 mg PEG/G-TUBE Q12H 06/03/19 07/30/19 History Metoprolol Tartrate [Lopressor] 50 mg PEG/G-TUBE BID 07/29/19 07/30/19 History Jevity 1.5 [place] Liquid 1,000 ml PEJ/J-TUBE DAILY 07/30/19 07/30/19 History Allergies Allergy/AdvReac Type Severity Reaction Status Date / Time meropenem [From Merrem] Allergy Rash/Hives Verified 07/29/19 22:45 Physical Exam Vitals: Vital Signs Temp Pulse Pulse Pulse Resp BP BP 07/30/19 12:59 97.6 F 84 16 121/75 07/30/19 08:00 17 07/30/19 06:25 98.3 F 84 17 137/80 07/30/19 03:30 97.9 F 85 18 144/86 07/30/19 02:04 92 18 143/97 07/30/19 01:29 98.6 F 96 18 168/100 07/30/19 00:21 97.5 F L 92 18 144/94 07/29/19 23:03 20 07/29/19 22:40 99.8 F H 75 20 169/113 Pulse Ox 07/30/19 12:59 95 07/30/19 08:00 07/30/19 06:25 99 07/30/19 03:30 95 07/30/19 02:04 95 07/30/19 01:29 96 07/30/19 00:21 97 07/29/19 23:03 07/29/19 22:40 96 Intake and Output 07/29/19 07/30/19 07/30/19 22:59 06:59 14:59 Output Total 3350 Balance -3350 Output: Urine 3350 Uretheral (Stein) 1000 Other: Voiding Method Indwelling Catheter Indwelling Catheter Weight 81.647 kg 68.5 kg GENERAL DESCRIPTION: Middle-aged male lying in bed, no distress. No tachypnea or accessory muscle of respiration use. HEENT: Shows Pallor , no scleral icterus. Oral mucous membrane is dry. No pharyngeal erythema or thrush NECK: Trachea central, no thyromegaly. LUNGS: Unlabored breathing. Decreased breaths on the base. No wheeze or crackle. HEART: S1, S2, regular rate and rhythm. No loud murmur ABDOMEN: Soft, no tenderness , guarding or rigidity, no organomegaly EXTREMITIES: No edema of feet. SKIN: No rash, no masses palpable. NEUROLOGICAL: The patient is awake, alert, orientation, mood and affect could not be determined as patient is nonverbal. Results CBC & Chem 7: 07/29/19 22:51 10/29/19 22:51 Labs: Abnormal Lab Results - Last 24 Hours (Table) 07/29/19 07/29/19 07/29/19 Range/Units 22:51 22:51 22:51 WBC 12.2 H (3.8-10.6) k/uL Plt Count 475 H (150-450) k/uL Neutrophils # 9.6 H (1.3-7.7) k/uL APTT 33.4 H (22.0-30.0) sec Sodium 134 L (137-145) mmol/L Glucose 104 H (74-99) mg/dL POC Glucose (mg/dL) (75-99) mg/dL AST 15 L (17-59) U/L Urine Protein (Negative) Urine Blood (Negative) Ur Leukocyte Esterase (Negative) Urine WBC (0-5) /hpf Urine WBC Clumps (None) /hpf Urine Bacteria (None) /hpf 07/30/19 07/30/19 Range/Units 00:01 12:30 WBC (3.8-10.6) k/uL Plt Count (150-450) k/uL Neutrophils # (1.3-7.7) k/uL APTT (22.0-30.0) sec Sodium (137-145) mmol/L Glucose (74-99) mg/dL POC Glucose (mg/dL) 122 H (75-99) mg/dL AST (17-59) U/L Urine Protein 1+ H (Negative) Urine Blood Trace H (Negative) Ur Leukocyte Esterase Large H (Negative) Urine WBC >182 H (0-5) /hpf Urine WBC Clumps Occasional H (None) /hpf Urine Bacteria Moderate H (None) /hpf Microbiology - Last 24 Hours (Table) 07/30/19 00:01 Urine Culture - Preliminary Urine,Catheterized Assessment and Plan Assessment: 1-patient presented to hospital with a fever in this patient who did have elevated white count source is likely he did track infection clinically suspicio us for now for underlying pneumonia as the patient is breathing comfortably on room air and chest x-ray did show improvement compared to previous x-ray and no significant wheezing or crackle nose just on clinical examination Plan: 1-[place] Stein catheter if not already done in the ER 2-Zosyn 3.375 g every 8 hours 3-gentle IV fluid We will follow on clinical condition and cultures to further adjust medication if needed Thank you for this consultation will follow this patient with you Time with Patient: Greater than 30
[2019-07-31] MEDS: LEVOFLOXACIN 750MG-D5W PMX 750 MG in DEXTROSE/WATER 1 150ML.BAG IVPB SCH (02:30)
[2019-07-31] MEDS: PIPERACILLIN-TAZOBACTAM 3.375 GM in SODIUM CHLORIDE 0.9% 100 ML IVPB SCH ×3 (02:31→17:03)
[2019-07-31 06:37] LABS: Glucose,Whole Blood 118 mg/dL (75-99)
[2019-07-31] MEDS ORDERED: JEVITY CAL PEJ/J-Tube SCH (09:00)
[2019-07-31] MEDS: IPRATROPIUM-ALBUTEROL 3 ML NEB INHALATION SCH ×4 (09:30→20:03)
[2019-07-31 09:34] LABS: Basophils # (A) 0.1 k/uL (0-0.2); Basophils % (A) 1 %; Eosinophils # (A) 0.4 k/uL (0-0.7); Eosinophils % (A) 5 %; HCT 34.8 % (39.0-53.0); Hypochromasia Moderate; Lymphocytes # (A) 1.1 k/uL (1.0-4.8); Lymphocytes % (A) 14 %; MCH 27.5 pg (25.0-35.0); MCHC 31.7 g/dL (31.0-37.0); MCV 86.7 fL (80.0-100.0); Mean Platelet Volume 6.8; Monocytes # (A) 0.7 k/uL (0-1.0); Monocytes % (A) 8 %; Neutrophils # (A) 5.7 k/uL (1.3-7.7); Neutrophils % (A) 71 %; Platelet Count 422 k/uL (150-450); RBC 4.01 m/uL (4.30-5.90); RDW 15.3 % (11.5-15.5); WBC 8.1 k/uL (3.8-10.6)
[2019-07-31 09:54] LABS: African American GFR (CKD) >90 (>60 ml/min/1.73 sqM); Anion Gap 10 mmol/L; Blood Urea Nitrogen 18 mg/dL (9-20); Calcium 8.8 mg/dL (8.4-10.2); Carbon Dioxide 22 mmol/L (22-30); Chloride 107 mmol/L (98-107); Glucose 110 mg/dL (74-99); Potassium 4.4 mmol/L (3.5-5.1); Sodium 139 mmol/L (137-145)
[2019-07-31] MEDS: DOCUSATE ORAL SOLN 100 MG/10 ML CUP PEG/G-TUBE SCH ×2 (11:14→20:15)
[2019-07-31] MEDS: BACLOFEN 10 MG TAB PEG/G-TUBE SCH ×3 (11:33→22:56)
[2019-07-31] MEDS: FUROSEMIDE 20 MG TAB PEG/G-TUBE SCH (11:33)
[2019-07-31] MEDS: CHOLECALCIFEROL 1,000 UNIT TAB PEG/G-TUBE SCH (11:33)
[2019-07-31] MEDS: PANTOPRAZOLE SODIUM 40 MG GRANULE PKT PEG/G-TUBE SCH (11:34)
[2019-07-31] MEDS: METOPROLOL TARTRATE 50 MG TAB PEG/G-TUBE SCH ×2 (11:34→22:57)
[2019-07-31] MEDS: ASCORBIC ACID 500 MG TAB PEG/G-TUBE SCH (11:34)
[2019-07-31] MEDS: OXYBUTYNIN CHLORIDE 5 MG TAB PEG/G-TUBE SCH ×2 (11:34→17:04)
[2019-07-31] MEDS: AMANTADINE HCL 100 MG/10 ML CUP PEG/G-TUBE SCH ×2 (11:35→22:58)
[2019-07-31] MEDS: HEPARIN SODIUM,PORCINE 5,000 UNIT/ML 1 ML VIAL SQ SCH ×2 (11:35→22:57)
[2019-07-31 11:44] LABS: Glucose,Whole Blood 112 mg/dL (75-99)
--- NOTE | 2019-07-31 13:17 | XR ---
EXAMINATION TYPE: XR chest 1V DATE OF EXAM: 07/31/2019 COMPARISON: 07/29/2019 HISTORY: 59-year-old male with pneumonia TECHNIQUE: Single frontal view of the chest is obtained. FINDINGS: Heart normal size. Aorta within normal limits. Diffuse interstitial prominence. Possible trace left e ffusion. Old left-sided rib fracture deformity. IMPRESSION: 1. Borderline heart size and diffuse interstitial changes. Findings could reflect mild pulmonary vasc ular congestion or atypical pneumonias. 2. Possible trace left pleural effusion with adjacent atelectasis and/or consolidation.
--- NOTE | 2019-07-31 14:19 | PN ---
PROGRESS NOTE PULMONARY/CRITICAL CARE PROGRESS NOTE: DATE OF SERVICE: 07/31/2019 This is a 59-year-old gentleman with a history of severe multiple sclerosis. We saw him for possible sepsis yesterday. We believe this likely source of infection is the urinary tract. He has had previous episodes of urinary tract infections and urosepsis in the past. From such bacteria as Proteus, E coli, Pseudomonas and also extended spectrum beta lactamase producing organisms. The patient was not really having any chest congestion or pulmonary complaints. He is not receiving any supplemental oxygen. We did not think his chest x-ray looked all that bad and we did not think he had a pneumonia. In addition to MS, he does have a history of PEG tube placement for feeding, recent episode of Escherichia coli bacteremia in June of this year, DVT, GERD, hypertension, pneumonia, severe cognitive impairment, urinary and bowel incontinence, and neurogenic bladder. Currently, when I went in to evaluate in the room, the patient was getting a bath by the nurses. He appeared in no distress. Current vital signs are reviewed, temperature 97.5, heart rate 73, respiratory rate 14, blood pressure 134/79 mean 97, room-air saturation 99%. Appears in no acute distress. HEENT: Examination is grossly unremarkable. Mucous membranes are moist. No oral lesions. NECK: Supple. Full range of motion. No adenopathy. Neck veins are flat. CARDIOVASCULAR: Examination reveals regular rhythm and rate. S1, S2 normal. Heart rate 73 beats per minute. There is no murmur. LUNGS: Reveal mostly clear breath sounds. He does not really take deep breaths. There was no wheezes, rhonchi, or crackles. ABDOMEN: Soft. Bowel sounds are heard. PEG tube is noted. EXTREMITIES: Intact. No cyanosis, clubbing, or edema. SKIN: Without rash. He is contracted a bit. NEUROLOGIC: Examination is difficult to assess. He is nonverbal. Microbiology is reviewed. His urine sample is currently pending. His urinalysis did look suspicious. Blood cultures are currently negative. LAB DATA: Includes a white count 8.1, hemoglobin 11, hematocrit 34.8, platelet count 422,000. Sodium, potassium, chloride. CO2 all normal. Anion gap normal. BUN and creatinine were normal. Calcium normal. Currently, the patient is on good antibiotics including Levaquin and Zosyn. His other medications appear to be appropriate. ASSESSMENT: 1. Suspect urinary tract infection/urosepsis, likely from a gram-negative bacteria such as Proteus, E coli, Pseudomonas or an ESBL organism. The patient has had multiple urinary tract infections in the past. 2. Doubt significant pneumonia as the patient is clinically stable and chest x-ray is actually improved, and he is not requiring any supplemental oxygen or does not appear to have any respiratory difficulty or symptoms. 3. History of multiple sclerosis. 4. Status post PEG tube placement. 5. Multiple previous urinary tract infections. 6. Recent Escherichia coli bacteremia in June 2019. 7. History of deep venous thrombosis. 8. History of gastroesophageal reflux disease. 9. History of hypertension. 10.Prior history of pneumonia. 11.History of severe cognitive impairment. 12.Bowel incontinence. 13.Urinary incontinence. 14.History of neurogenic bladder. PLAN: The patient is on good antibiotics in form of Levaquin and Zosyn. Will continue with those. Will await culture data including blood and urine sampling. He appears relatively stable. He is not requiring any supplemental oxygen. His chest x-ray is improved. No additional recommendations are made. Prognosis is guarded. MMODL / IJN: [id number] /
--- NOTE | 2019-07-31 14:33 | CDI ---
Documentation Clarification Form Date: 07/31/2019 2:17:45 PM From: Negin Salgado RN CCDS Admit Date: 07/30/2019 1:41:00 AM Patient Name: Chris Marvin Visit Number: [id number] Discharge Date: ATTENTION: The Clinical Documentation Specialists (CDI) and [facility] Coding Staff appreciate your assistance in clarifying documentation. Please respond to the clarification below the line at the bottom and electronically sign. The CDI & [facility] Coding staff will review the response and follow-up if needed. Please note: Queries are made part of the Legal Health Record. If you have any questions, please contact the author of this message via ITS. Dr. Dara Crowe A diagnosis of UTI has been documented your H & P 07/30/2019 History/Risk Factors: 59-year-old male presents to the ED via EMS from [facility] for sleeping more than usual and a cough for 2- 3 days Per documentation in the ED Note 07/30/2019 this patient was admitted with an indwelling Stein catheter. Clinical Indicators: medical history MS; Multidrug resistant urinary tract infection. Urinalysis: WBC >182; Leukocyte Esterase Large Urine culture: Pending Lab results: Wbc 12.2; Neutrophils # 9.6; Treatment: Levaquin ivpb ; Zosyn ivpb In your professional opinion, can you please clarify the etiology of the UTI, if known? * Stein catheter * UTI not related to catheter * Other condition, please specify * Unable to determine If an infective organism is present, please specify cause and effect relationship if applicable. (Last Revision: December 2017) Stein catheter MTDD
[2019-07-31 17:02] LABS: Glucose,Whole Blood 114 mg/dL (75-99)
--- NOTE | 2019-07-31 17:40 | PN ---
PROGRESS NOTE DATE OF SERVICE: 07/31/2019 This 59-year-old gentleman who was admitted with a fever had possible aspiration pneumonia. The patient had change in mental status and acute on chronic metabolic encephalopathy. The patient was started on broad-spectrum IV antibiotics. The patient is on PEG feeds because of end-stage multiple sclerosis. The most recent chest x-ray, which was reviewed personally by me, showed evidence of bibasilar infiltrate, more on the left. Past medical history reviewed. Review of systems could not be taken. CURRENT MEDICATIONS: Reviewed. They include: 1. Tylenol p.r.n. 2. DuoNeb q.i.d. and p.r.n. 3. Symmetrel 100 mg per PEG b.i.d. 4. Vitamin C 250 mg per PEG daily. 5. Lioresal 5 mg per PEG daily. 6. Tegretol 300 mg q.8. 7. Vitamin D3. 8. Colace 200 mg b.i.d. 9. Lasix 20 mg daily. 10.Robitussin. 11.Heparin. 12.Levaquin. 13.Lopressor. 14.Ditropan. 15.Protonix. 16.Zosyn IV. PHYSICAL EXAMINATION: Patient is alert, oriented x1. Pulse 66, blood pressure 110/74, respirations 16, temperature 97.3, pulse ox 97% on room air. HEENT: Conjunctivae normal. Oral mucosa moist. NECK: No jugular venous distention. No carotid bruit. No lymph node enlargement. CARDIOVASCULAR SYSTEM: S1, S2 muffled. No S3. No S4. RESPIRATORY SYSTEM: Breath sounds diminished at the bases. Bilateral scattered rhonchi and crackles. ABDOMEN: Soft. PEG tube in situ. LEGS: No edema. No swelling. NERVOUS SYSTEM: Unchanged. Diffuse contractures present. SKIN: As mentioned earlier. LABS: WBC 8.1, hemoglobin 11, sodium 139, potassium 4.4. ASSESSMENT: 1. Aspiration pneumonia, bilateral, right more than the left, with sepsis, present on admission. 2. Change in mental status, acute metabolic encephalopathy, possibly secondary to sepsis. 3. Chronic metabolic encephalopathy, multifactorial. 4. Acute urinary tract infection, present on admission. 5. History of previous recurrent urinary tract infections. 6. Multiple sclerosis with contractures. 7. Status post PEG tube. 8. History of deep vein thrombosis. 9. Gastroesophageal reflux disease. 10.Hypertension. 11.History of degenerative joint disease. 12.History of bowel incontinence. 13.History of neurogenic bladder. 14.History of extended-spectrum beta-lactamase organisms and methicillin-resistant Staphylococcus aeruginosa. 15.History of depression. RECOMMENDATIONS AND DISCUSSION: I recommend to continue current medications, continue with symptomatic treatment. Continue with the broad-spectrum IV antibiotics. Await the cultures. Follow closely with Infectious Disease as well as Pulmonary. Head of the bed elevated to 45 degrees, aspiration precautions. Guarded prognosis because of multiple complex medical issues. Further recommendations to follow. MMODL / IJN: [id number] /
--- NOTE | 2019-07-31 19:31 | PN ---
PROGRESS NOTE DATE OF SERVICE: 07/31/2019. REASON FOR FOLLOWUP: Urinary tract infection, catheter associated. INTERVAL HISTORY: The patient is currently afebrile. He is awake and alert. He is breathing comfortably. The patient is nonverbal and unable to provide any history. No nausea, vomiting or diarrhea reported by nursing staff. PHYSICAL EXAMINATION: Blood pressure 110/75 with a pulse of 66. Temperature 97.3. He is 97% on room air. General description is a middle-aged male lying in bed in no distress. Respiratory system: Unlabored breathing and is clear to auscultation anteriorly. Heart S1, S2. Regular rate and rhythm. Abdomen soft. No tenderness. LABS: White count normalized to 8.1. Urine showing gram-negative. Blood culture has been negative. DIAGNOSTIC IMPRESSION AND PLAN: Patient admitted to the hospital with fever, sepsis, source is gram-negative urinary tract infection. Patient is currently covered on Zosyn to continue while waiting for the culture to finalize. Continue supportive care. MMODL / IJN: [id number] /
[2019-08-01] MEDS: LEVOFLOXACIN 750MG-D5W PMX 750 MG in DEXTROSE/WATER 1 150ML.BAG IVPB SCH (01:18)
[2019-08-01 02:03] LABS: Glucose,Whole Blood 133 mg/dL (75-99)
[2019-08-01] MEDS: PIPERACILLIN-TAZOBACTAM 3.375 GM in SODIUM CHLORIDE 0.9% 100 ML IVPB SCH ×2 (03:12→08:56)
[2019-08-01 06:17] LABS: Glucose,Whole Blood 124 mg/dL (75-99)
[2019-08-01] MEDS: IPRATROPIUM-ALBUTEROL 3 ML NEB INHALATION SCH ×4 (07:36→19:40)
[2019-08-01] MEDS: AMANTADINE HCL 100 MG/10 ML CUP PEG/G-TUBE SCH ×2 (08:37→22:33)
[2019-08-01] MEDS: DOCUSATE ORAL SOLN 100 MG/10 ML CUP PEG/G-TUBE SCH ×2 (08:37→22:33)
[2019-08-01] MEDS: PANTOPRAZOLE SODIUM 40 MG GRANULE PKT PEG/G-TUBE SCH (08:37)
[2019-08-01] MEDS: CHOLECALCIFEROL 1,000 UNIT TAB PEG/G-TUBE SCH (08:38)
[2019-08-01] MEDS: METOPROLOL TARTRATE 50 MG TAB PEG/G-TUBE SCH ×2 (08:38→22:34)
[2019-08-01] MEDS: FUROSEMIDE 20 MG TAB PEG/G-TUBE SCH (08:38)
[2019-08-01] MEDS: OXYBUTYNIN CHLORIDE 5 MG TAB PEG/G-TUBE SCH ×3 (08:38→22:33)
[2019-08-01] MEDS: ASCORBIC ACID 500 MG TAB PEG/G-TUBE SCH (08:38)
[2019-08-01] MEDS: BACLOFEN 10 MG TAB PEG/G-TUBE SCH ×3 (08:39→22:34)
[2019-08-01] MEDS: HEPARIN SODIUM,PORCINE 5,000 UNIT/ML 1 ML VIAL SQ SCH ×2 (08:56→22:34)
[2019-08-01 10:00] LABS: Basophils % (A) 0 %; Eosinophils # (A) 0.2 k/uL (0-0.7); Eosinophils % (A) 3 %; HCT 33.7 % (39.0-53.0); HGB 10.7 gm/dL (13.0-17.5); Lymphocytes # (A) 0.9 k/uL (1.0-4.8); Lymphocytes % (A) 13 %; MCH 26.7 pg (25.0-35.0); MCHC 31.9 g/dL (31.0-37.0); MCV 83.8 fL (80.0-100.0); Monocytes # (A) 0.6 k/uL (0-1.0); Monocytes % (A) 9 %; Neutrophils # (A) 4.9 k/uL (1.3-7.7); Neutrophils % (A) 73 %; Platelet Count 380 k/uL (150-450); RBC 4.02 m/uL (4.30-5.90); RDW 15.9 % (11.5-15.5); WBC 6.8 k/uL (3.8-10.6)
[2019-08-01 10:55] LABS: African American GFR (CKD) >90 (>60 ml/min/1.73 sqM); Anion Gap 9 mmol/L; Blood Urea Nitrogen 15 mg/dL (9-20); Calcium 8.4 mg/dL (8.4-10.2); Carbon Dioxide 23 mmol/L (22-30); Chloride 107 mmol/L (98-107); Glucose 135 mg/dL (74-99); Potassium 3.4 mmol/L (3.5-5.1); Sodium 139 mmol/L (137-145)
--- NOTE | 2019-08-01 11:31 | P.PN ---
Subjective Progress Note Date: 08/01/19 Principal diagnosis: Urinary tract infection, urosepsis On 08/01/2017 patient seen in follow-up on medical surgical floor. He is calm and comfortable, in no acute distress, room air pulse ox is 98%, afebrile, hemodynamically stable, he is being treated for urinary tract infection, cultures positive for ESBL E. coli. Patient has ALLERGIES to meropenem, current antibiotic coverage includes Levaquin. No significant pulmonary complaints, no cough or congestion. Susceptibility of the ESBL E. coli to Levaquin was indicated on the sensitivity screen. Continue antibiotics per ID service recommendations. Today's labs have been reviewed, with blood cell count of 6.8, hemoglobin is 10.7, sodium is 139, potassium is 3.4, the rest of the electrolytes and renal profile were within normal limits Objective - Vital Signs Vital signs: Vital Signs Temp 97.6 F 08/01/19 10:38 Pulse 78 08/01/19 10:39 Resp 14 08/01/19 10:39 BP 125/85 08/01/19 10:38 Pulse Ox 98 08/01/19 10:38 Intake & Output 07/31/19 08/01/19 08/01/19 18:59 06:59 18:59 Output Total 1075 875 Balance -1075 -875 Weight 68 kg 70 kg Output: Urine 1075 875 Other: Voiding Method Indwelling Catheter Indwelling Catheter Indwelling Catheter # Bowel Movements 3 1 - Exam GENERAL EXAM: Alert, pleasant, 59-year-old white male, nonverbal, comfortable in no apparent distress. HEAD: Normocephalic/atraumatic. EYES: Normal reaction of pupils, equal size. Conjunctiva pink, sclera white. NOSE: Clear with pink turbinates. THROAT: No erythema or exudates. NECK: No masses, no JVD, no thyroid enlargement, no adenopathy. CHEST: No chest wall deformity. Symmetrical expansion. LUNGS: Diminished breath sounds bilaterally, with some scattered rhonchi CVS: Regular rate and rhythm, normal S1 and S2, no gallops, no murmurs, no rubs ABDOMEN: Soft, nontender. No hepatosplenomegaly, normal bowel sounds, no guarding or rigidity. EXTREMITIES: No clubbing, no edema, no cyanosis, 2+ pulses and upper and lower extremities. MUSCULOSKELETAL: Muscle strength and tone normal. SPINE: No scoliosis or deformity SKIN: No rashes CENTRAL NERVOUS SYSTEM: Alert and oriented -3. No focal deficits, tone is normal in all 4 extremities. PSYCHIATRIC: Alert and oriented -3. Appropriate affect. Intact judgment and insight. - Labs CBC & Chem 7: 08/01/19 08:56 08/01/19 08:56 Labs: Abnormal Lab Results - Last 24 Hours (Table) 07/31/19 07/31/19 08/01/19 Range/Units 11:41 16:58 01:55 RBC (4.30-5.90) m/uL Hgb (13.0-17.5) gm/dL Hct (39.0-53.0) % RDW (11.5-15.5) % Lymphocytes # (1.0-4.8) k/uL Potassium (3.5-5.1) mmol/L Glucose (74-99) mg/dL POC Glucose (mg/dL) 112 H 114 H 133 H (75-99) mg/dL 08/01/19 08/01/19 08/01/19 Range/Units 06:15 08:56 08:56 RBC 4.02 L (4.30-5.90) m/uL Hgb 10.7 L (13.0-17.5) gm/dL Hct 33.7 L (39.0-53.0) % RDW 15.9 H (11.5-15.5) % Lymphocytes # 0.9 L (1.0-4.8) k/uL Potassium 3.4 L (3.5-5.1) mmol/L Glucose 135 H (74-99) mg/dL POC Glucose (mg/dL) 124 H (75-99) mg/dL Microbiology - Last 24 Hours (Table) 07/30/19 00:01 Urine Culture - Final Urine,Catheterized Escherichia coli 07/29/19 23:27 Blood Culture - Preliminary Blood No Growth after 48 hours Assessment and Plan Plan: Assessment: #1. Acute urinary tract infection related to ESBL E. coli #2. Low suspicion for pneumonia patient is clinical stable, not requiring supplemental oxygen, no pulmonary complaints, no signs of respiratory difficulty #3. History of multiple sclerosis #4. Status post PEG tube placement #5. History of previous urinary tract infections #6. Recent E. coli bacteremia in June 2019 #7. History of deep venous thrombosis #8. History of GERD/reflux #9. History of hypertension #10. History of pneumonia #11. History of severe cognitive impairment #12. Bowel and urinary incontinence #13. History of neurogenic bladder Plan: Patient appears to be calm and comfortable, no acute distress, he is on room air, no signs of respiratory difficulty, hemodynamically stable, patient is on Levaquin for ESBL E. coli, vital signs are stable. Latest chest x-ray from 07/31/2019 showed some diffuse interstitial changes, and mild pulmonary vascular congestion, clinically breathing is stable. We will follow the patient on as- needed basis I performed a history & physical examination of the patient and discussed their management with my nurse practitioner, Naheed Pace. I reviewed the nurse practitioner's note and agree with the documented findings and plan of care. Lung sounds are positive for a few scattered rhonchi. The findings and the impr ession was discussed with the patient. I attest to the documentation by the nurse practitioner. Time with Patient: Less than 30
[2019-08-01 11:44] LABS: Glucose,Whole Blood 142 mg/dL (75-99)
[2019-08-01] MEDS ORDERED: Potassium Replacement Protocol 1 EACH MISC MISCELLANE PRN ×2 (11:56→12:00)
[2019-08-01] MEDS: POTASSIUM BICARBONATE/CIT AC 20 MEQ TABLET.EFF PEG/G-TUBE SCH ×2 (12:45→14:39)
[2019-08-01] MEDS: ERTAPENEM 1 GM in SODIUM CHLORIDE 0.9% 50 ML IVPB SCH (17:05)
[2019-08-01 17:26] LABS: Glucose,Whole Blood 123 mg/dL (75-99)
[2019-08-01 17:31] LABS: Appearance,Urine Clear (Clear); Bilirubin,Urine Negative (Negative); Blood,Urine Negative (Negative); Color,Urine Yellow; Glucose,Urine (UA) Negative (Negative); Ketones,Urine Negative (Negative); Leukocyte Esterase,Urine Small (Negative); Nitrite,Urine Negative (Negative); Protein,Urine Trace (Negative); RBC,Urine 6 /hpf (0-5); Specific Gravity,Urine 1.015 (1.001-1.035); Urobilinogen,Urine <2.0 mg/dL (<2.0)
--- NOTE | 2019-08-01 18:20 | PN ---
PROGRESS NOTE DATE OF SERVICE: 08/01/2019 This 59-year-old gentleman who was admitted with aspiration pneumonia had change in mental status. The patient is being closely monitored at this time. The patient is on broad-spectrum IV antibiotics. No chest pain. No palpitation. PHYSICAL EXAMINATION: The patient is nonverbal. Pulse 81, blood pressure 133/77, respiration 18, temperature 98.1, pulse ox 96% on room air. HEENT: Conjunctivae normal. NECK: No jugular venous distention. CARDIOVASCULAR SYSTEM: S1, S2 muffled. RESPIRATORY SYSTEM: Breath sounds diminished at the bases. A few scattered rhonchi. ABDOMEN: Soft. NERVOUS SYSTEM: Unchanged. Contractures present. LABS: WBC 6.8, hemoglobin 10.7, potassium 3.4. The urine culture showed ESBL E coli. ASSESSMENT: 1. Aspiration pneumonia, bilateral, right more than the left, with possible sepsis, present on admission. 2. Change in mental status, acute metabolic encephalopathy, possibly secondary to sepsis. 3. Extended-spectrum beta-lactamase Escherichia coli urinary tract infection. 4. Chronic metabolic encephalopathy, multifactorial. 5. History of previous recurrent urinary tract infections. 6. Multiple sclerosis and contractures. 7. Status post PEG tube placement. 8. History of deep vein thrombosis. 9. Gastroesophageal reflux disease. 10.Hypertension. 11.History of degenerative joint disease. 12.History of bowel incontinence. 13.History of neurogenic bladder. 14.History of extended-spectrum beta-lactamase organism and methicillin-resistant Staphylococcus aeruginosa previously. 15.History of depression. RECOMMENDATIONS AND DISCUSSION: I recommend to continue current medications, continue with the monitoring, symptomatic treatment. Otherwise at this time I would recommend continuing with antibiotics. Follow closely with Infectious Disease. Guarded prognosis because of multiple complex medical issues. Further recommendations to follow. The patient is on Invanz at this time. MMODL / IJN: [id number] /
--- NOTE | 2019-08-01 18:20 | PN ---
PROGRESS NOTE DATE OF SERVICE: 08/01/2019 REASON FOR FOLLOWUP: ESBL E coli urinary tract infection. INTERVAL HISTORY: The patient is currently afebrile. The patient has been breathing comfortably. He seems to be awake and alert and in no distress. No nausea, vomiting or diarrhea reported by the nursing staff. PHYSICAL EXAMINATION: Blood pressure 133/77 with a pulse of 81, temperature 98.1. He is 96% on room air. General description is an elderly male lying in bed in no distress. RESPIRATORY SYSTEM: Unlabored breathing with decreased breath sounds at the base. No wheeze. HEART: S1, S2. Regular rate and rhythm. ABDOMEN: Soft. No tenderness. EXTREMITIES: No edema of the feet. LABS: Urine has now been finalized with ESBL E coli. Blood culture has been negative. DIAGNOSTIC IMPRESSION AND PLAN: Patient admitted to hospital with fever with concern for possible pneumonia versus urinary tract infection. Urine is showing ESBL E coli. Will repeat his urine culture. As the patient seems to have shown clinical improvement on Zosyn, discontinue Zosyn and start the patient on Invanz 1 gram daily and adjust antibiotic further on the basis of repeat urine cultures. Continue with supportive care. MMODL / IJN: [id number] /
[2019-08-02 00:28] LABS: Glucose,Whole Blood 116 mg/dL (75-99)
[2019-08-02] MEDS: LEVOFLOXACIN 750MG-D5W PMX 750 MG in DEXTROSE/WATER 1 150ML.BAG IVPB SCH (02:29)
[2019-08-02 06:25] LABS: Glucose,Whole Blood 131 mg/dL (75-99)
[2019-08-02 06:57] LABS: Glucose,Whole Blood 124 mg/dL (75-99)
[2019-08-02 07:44] LABS: Basophils # (A) 0.1 k/uL (0-0.2); Basophils % (A) 1 %; Eosinophils # (A) 0.3 k/uL (0-0.7); Eosinophils % (A) 4 %; HCT 35.1 % (39.0-53.0); HGB 11.1 gm/dL (13.0-17.5); Lymphocytes % (A) 12 %; MCHC 31.7 g/dL (31.0-37.0); MCV 85.4 fL (80.0-100.0); Mean Platelet Volume 6.8; Monocytes # (A) 0.6 k/uL (0-1.0); Monocytes % (A) 8 %; Neutrophils # (A) 5.5 k/uL (1.3-7.7); Neutrophils % (A) 73 %; Platelet Count 401 k/uL (150-450); RBC 4.11 m/uL (4.30-5.90); RDW 15.8 % (11.5-15.5); WBC 7.6 k/uL (3.8-10.6)
[2019-08-02] MEDS: IPRATROPIUM-ALBUTEROL 3 ML NEB INHALATION SCH ×4 (07:45→20:04)
[2019-08-02 08:00] LABS: African American GFR (CKD) >90 (>60 ml/min/1.73 sqM); Anion Gap 10 mmol/L; Blood Urea Nitrogen 12 mg/dL (9-20); Calcium 8.6 mg/dL (8.4-10.2); Carbon Dioxide 23 mmol/L (22-30); Chloride 105 mmol/L (98-107); Glucose 122 mg/dL (74-99); Potassium 4.2 mmol/L (3.5-5.1); Sodium 138 mmol/L (137-145)
[2019-08-02] MEDS: CHOLECALCIFEROL 1,000 UNIT TAB PEG/G-TUBE SCH (08:48)
[2019-08-02] MEDS: BACLOFEN 10 MG TAB PEG/G-TUBE SCH ×3 (08:48→21:39)
[2019-08-02] MEDS: METOPROLOL TARTRATE 50 MG TAB PEG/G-TUBE SCH ×2 (08:48→21:37)
[2019-08-02] MEDS: FUROSEMIDE 20 MG TAB PEG/G-TUBE SCH (08:48)
[2019-08-02] MEDS: OXYBUTYNIN CHLORIDE 5 MG TAB PEG/G-TUBE SCH ×3 (08:48→21:37)
[2019-08-02] MEDS: HEPARIN SODIUM,PORCINE 5,000 UNIT/ML 1 ML VIAL SQ SCH ×2 (08:48→21:38)
[2019-08-02] MEDS: ASCORBIC ACID 500 MG TAB PEG/G-TUBE SCH (08:48)
[2019-08-02] MEDS: SCOPOLAMINE 1.5MG/72HR PATCH TRANSDERM SCH (08:49)
[2019-08-02] MEDS: PANTOPRAZOLE SODIUM 40 MG GRANULE PKT PEG/G-TUBE SCH (08:49)
[2019-08-02] MEDS: DOCUSATE ORAL SOLN 100 MG/10 ML CUP PEG/G-TUBE SCH ×2 (08:49→21:38)
[2019-08-02] MEDS: AMANTADINE HCL 100 MG/10 ML CUP PEG/G-TUBE SCH ×2 (08:50→21:37)
[2019-08-02 11:58] LABS: Glucose,Whole Blood 135 mg/dL (75-99)
[2019-08-02 17:33] LABS: Glucose,Whole Blood 143 mg/dL (75-99)
[2019-08-02] MEDS: ERTAPENEM 1 GM in SODIUM CHLORIDE 0.9% 50 ML IVPB SCH (17:54)
[2019-08-02 20:56] LABS: Glucose,Whole Blood 125 mg/dL (75-99)
--- NOTE | 2019-08-02 21:48 | PN ---
PROGRESS NOTE DATE OF SERVICE: 08/02/2019 This 59-year-old gentleman with a past medical history of multiple medical problems was admitted with aspiration pneumonia, bilateral. The patient also had change in mental status which is improving. Patient on broad spectrum IV antibiotics. Aspiration precautions has been noted. The patient is followed by Infectious Disease and pulmonology. Past medical history reviewed. Review of systems could not be taken. The patient is on Ertapenem. ESBL E coli was grown from the cultures. EXAM: The patient is nonverbal. Pulse 89. Blood pressure 136/84. Respirations 18. Temperature 99.2, pulse ox 98% on room air. HEENT is conjunctivae normal. NECK is no jugular venous distention. CARDIOVASCULAR: S1, S2. RESPIRATION: Breath sounds diminished in the bases. A few scattered rhonchi and crackles. ABDOMEN: Soft. PEG tube in situ. LEGS: No edema. No swelling. CENTRAL NERVOUS SYSTEM: Diffuse contractures. LABS: WBC 7.2, hemoglobin 11.1. ASSESSMENT: 1. Aspiration pneumonia, bilateral, right more than the left with possible sepsis, present on admission. 2. Change in mental status, acute metabolic encephalopathy, possibly secondary to sepsis. 3. ESBL E coli urinary tract infection. 4. Chronic metabolic encephalopathy, multifactorial. 5. History of previous recurrent urinary tract infections. 6. Multiple sclerosis and contractures. 7. Status post PEG tube placement. 8. History of deep vein thrombosis. 9. Gastroesophageal reflux disease. 10.Hypertension.. 11.History of degenerative joint disease. 12.History of bowel incontinence. 13.History of neurogenic bladder. 14.History of extended-spectrum beta-lactamase organisms/MRSA previously. 15.History of depression. RECOMMENDATIONS AND DISCUSSION: Recommend to continue current medications. Continue the antibiotics. Continue Ertapenem. Continue the bronchodilators. Otherwise once the patient is stable, we will send the patient back to the ECF. Further recommendations to follow. MMODL / IJN: [id number] /
[2019-08-03 00:06] LABS: Glucose,Whole Blood 105 mg/dL (75-99)
[2019-08-03] MEDS: LEVOFLOXACIN 750MG-D5W PMX 750 MG in DEXTROSE/WATER 1 150ML.BAG IVPB SCH (01:49)
[2019-08-03 06:09] LABS: Glucose,Whole Blood 120 mg/dL (75-99)
[2019-08-03] MEDS: IPRATROPIUM-ALBUTEROL 3 ML NEB INHALATION SCH ×4 (07:59→19:55)
[2019-08-03] MEDS: HEPARIN SODIUM,PORCINE 5,000 UNIT/ML 1 ML VIAL SQ SCH ×2 (08:47→22:17)
[2019-08-03] MEDS: CHOLECALCIFEROL 1,000 UNIT TAB PEG/G-TUBE SCH (08:47)
[2019-08-03] MEDS: BACLOFEN 10 MG TAB PEG/G-TUBE SCH ×3 (08:47→22:17)
[2019-08-03] MEDS: OXYBUTYNIN CHLORIDE 5 MG TAB PEG/G-TUBE SCH ×3 (08:47→22:16)
[2019-08-03] MEDS: METOPROLOL TARTRATE 50 MG TAB PEG/G-TUBE SCH ×2 (08:47→22:16)
[2019-08-03] MEDS: ASCORBIC ACID 500 MG TAB PEG/G-TUBE SCH (08:47)
[2019-08-03] MEDS: FUROSEMIDE 20 MG TAB PEG/G-TUBE SCH (08:47)
[2019-08-03] MEDS: AMANTADINE HCL 100 MG/10 ML CUP PEG/G-TUBE SCH ×2 (08:48→22:18)
[2019-08-03] MEDS: PANTOPRAZOLE SODIUM 40 MG GRANULE PKT PEG/G-TUBE SCH (08:48)
[2019-08-03] MEDS: DOCUSATE ORAL SOLN 100 MG/10 ML CUP PEG/G-TUBE SCH ×2 (08:48→22:18)
[2019-08-03 12:03] LABS: Glucose,Whole Blood 124 mg/dL (75-99)
[2019-08-03] MEDS: ERTAPENEM 1 GM in SODIUM CHLORIDE 0.9% 50 ML IVPB SCH (15:35)
[2019-08-03 17:57] LABS: Glucose,Whole Blood 113 mg/dL (75-99)
--- NOTE | 2019-08-03 21:30 | PN ---
PROGRESS NOTE DATE OF SERVICE: 08/03/2019 This 59-year-old gentleman who was admitted with aspiration pneumonia, bilateral is being closely monitored. Sensorium is significantly improved. Even though the patient continues to be nonverbal. No chest pain. No palpitation. Aspiration precautions and head of the bed elevated 45 degrees being maintained. EXAM: Pulse is 87. Blood pressure 124/70, respiration 18, temperature 97.9, pulse ox 98% on room air. HEENT: Conjunctivae normal. NECK: No JVD. CARDIOVASCULAR: S1, S2 muffled. RESPIRATIONS: Breath sounds diminished in the bases. Scattered rhonchi and crackles. ABDOMEN soft. PEG tube in situ. LEGS are no edema. No swelling. CENTRAL NERVOUS SYSTEM: No focal deficits. LABS: WBC 7.2, hemoglobin 11.1, glucose 113. ASSESSMENT: 1. Aspiration pneumonia, bilateral, right more than the left with possible sepsis present on admission. 2. Change in mental status, acute metabolic encephalopathy, possibly secondary to sepsis. 3. ESBL E coli from the urine and UTI, acute. 4. Chronic metabolic encephalopathy, multifactorial. 5. History of previous recurrent urinary tract infections. 6. Multiple sclerosis with contractures. 7. Status post PEG tube placement currently. 8. History of deep vein thrombosis. 9. Gastroesophageal reflux disease. 10.Hypertension. 11.History of degenerative joint disease. 12.History of bowel incontinence. 13.History of neurogenic bladder. 14.History of extended-spectrum beta-lactamase organisms and as well as MRSA previously. 15.History of depression. 16.FULL CODE. RECOMMENDATIONS AND DISCUSSION: Recommend to continue current medications, monitoring, symptomatic treatment. Continue to monitor. Continue the bronchodilators. Aspiration precautions. If the patient makes steady improvement, we will send the patient to rehab in the next 24-48 hours. Further recommendations to follow. MMODL / IJN: [id number] /
--- NOTE | 2019-08-03 23:11 | PN ---
PROGRESS NOTE DATE OF SERVICE: 08/03/2019. REASON FOR FOLLOWUP: ESBL E coli urinary tract infection. INTERVAL HISTORY: The patient is currently afebrile. The patient is breathing comfortably. The patient is hemodynamically stable. No nausea, vomiting or diarrhea has been reported. Patient himself unable to provide any history. PHYSICAL EXAMINATION: Blood pressure is 124/70 with a pulse of 87, temperature 97.9. He is 98% on room air. General description is a middle-aged male lying in bed in no distress. Respiratory system: Unlabored breathing. Decreased breath sounds in the bases. No wheeze. Heart S1, S2. Regular rate and rhythm. Abdomen is soft. No tenderness. Extremities are no edema of the feet. LABS: Repeat urine is currently negative. White count 7.6. DIAGNOSTIC IMPRESSION AND PLAN: Patient admitted to the hospital with low-grade fever, elevated white count and concern for catheter associated urinary tract infection. The patient Stein catheter has been changed. Initial urine did show an ESBL E coli. However, repeat urine is not significantly positive. The patient received about 3 days of IV Invanz with a dose tomorrow, should be more than enough for his underlying mild cystitis as clinically doubt deep infection. MMODL / IJN: [id number] /
[2019-08-04 01:45] LABS: Glucose,Whole Blood 108 mg/dL (75-99)
[2019-08-04] MEDS: LEVOFLOXACIN 750MG-D5W PMX 750 MG in DEXTROSE/WATER 1 150ML.BAG IVPB SCH (03:01)
[2019-08-04] MEDS: IPRATROPIUM-ALBUTEROL 3 ML NEB INHALATION SCH ×4 (07:03→19:45)
[2019-08-04] MEDS: DOCUSATE ORAL SOLN 100 MG/10 ML CUP PEG/G-TUBE SCH ×2 (09:11→21:51)
[2019-08-04] MEDS: METOPROLOL TARTRATE 50 MG TAB PEG/G-TUBE SCH ×2 (09:19→21:50)
[2019-08-04] MEDS: HEPARIN SODIUM,PORCINE 5,000 UNIT/ML 1 ML VIAL SQ SCH ×2 (09:19→21:50)
[2019-08-04] MEDS: CHOLECALCIFEROL 1,000 UNIT TAB PEG/G-TUBE SCH (09:19)
[2019-08-04] MEDS: BACLOFEN 10 MG TAB PEG/G-TUBE SCH ×3 (09:19→21:49)
[2019-08-04] MEDS: FUROSEMIDE 20 MG TAB PEG/G-TUBE SCH (09:19)
[2019-08-04] MEDS: ASCORBIC ACID 500 MG TAB PEG/G-TUBE SCH (09:19)
[2019-08-04] MEDS: OXYBUTYNIN CHLORIDE 5 MG TAB PEG/G-TUBE SCH ×3 (09:19→21:49)
[2019-08-04] MEDS: AMANTADINE HCL 100 MG/10 ML CUP PEG/G-TUBE SCH ×2 (09:19→21:51)
[2019-08-04] MEDS: PANTOPRAZOLE SODIUM 40 MG GRANULE PKT PEG/G-TUBE SCH (09:20)
[2019-08-04 11:20] LABS: Glucose,Whole Blood 117 mg/dL (75-99)
--- NOTE | 2019-08-04 12:57 | P.DS ---
Providers Date of admission: 07/30/19 01:41 Expected date of discharge: 08/04/19 Attending physician: Dara Crowe Consults: 07/30/19 10:42 Consult Physician Routine Consulting Provider: Brenden Hawkins Consult Reason/Comments: pneumonia Do you want consulting provider notified?: Yes 07/30/19 14:50 Consult Physician Routine Consulting Provider: Sonal Farah Consult Reason/Comments: sepsis Do you want consulting provider notified?: Yes Primary care physician: Matteo [facility] Course: Final diagnosis Aspiration pneumonia, bilateral, right more than left, with possible sepsis, present on admission Change in mental status, acute metabolic encephalopathy, possibly secondary to sepsis ESBL, E. coli from the urine and UTI, acute Chronic metabolic encephalopathy, multifactorial History of previous recurrent urinary tract infections Multiple sclerosis with contractures Status post PEG tube placement currently History of deep vein thrombosis Gastroesophageal reflux disease Hypertension History of degenerative joint disease History of bowel incontinence History of neurogenic bladder History of extended spectrum beta-lactamase organisms as well as MRSA previously History of depression Full code Discharge Disposition Patient is being discharged in a stable condition with guarded prognosis to [facility] as he is a permanent resident there. Patient will continue with oral antibiotics in the form of Augmentin for the next 3 days and then may discontinue. Patient is to maintain strict aspiration precautions and to keep the head of the bed 45 elevated at all times. Total time taken is 35 minutes. History of present illness This is a 59-year-old male who was recently admitted with aspiration pneumonia bilateral and was being closely monitored. Patient was also having changes in mental status and was being closely monitored. Infectious disease was following and patient was receiving IV antibiotics in the form of Invanz and Levaquin and per infectious disease recommendations patient received adequate amount of antibiotics. Currently patient's condition is stable with improvement and will be returning to [facility] today. Upon discharge patient is to continue with strict aspiration precautions and also to continuously abdomen head of the bed at 45. Guarded prognosis. On exam vital signs are stable. Temp is 98.8F, pulse is 60, respirations are 20, blood pressure is 126/80, oxygen saturation is 98%. Cardio S1 and S2 are muffled. Respiratory system shows diminished breath sounds at the bases with a few scattered rhonchi noted. Abdomen is soft and nontender with PEG tube noted. Nervous system shows no focal deficits. Please refer to medication reconciliation sheet for a list of medications. Patient Condition at Discharge: Fair Plan - Discharge Summary Discharge Rx Participant: No New Discharge Prescriptions: New Amoxicillin/Potassium Clav [Augmentin 875-125 Tablet] 1 tab PO BID 3 Days #6 tab Ipratropium-Albuterol Nebulize [Duoneb 0.5 mg-3 mg/3 ml Soln] 3 ml INHALATION RT-QID ampul.neb Continue Cholecalciferol [Vitamin D3 (25 Mcg = 1000 Iu)] 1,000 unit PEG/G-TUBE DAILY Docusate Oral Soln [Colace Oral Soln] 200 mg PEG/G-TUBE BID Amantadine 50mg/5ml 100 mg PEG/G-TUBE Q12H Ascorbic Acid [Vitamin C] 250 mg PEG/G-TUBE DAILY guaiFENesin [guaiFENesin Oral Solution] 200 mg PEG/G-TUBE Q6H PRN PRN Reason: Cough Scopolamine 1.5MG/72Hr Patch [TransDerm Scop] 1 patch TRANSDERM Q72H Baclofen 5 mg PEG/G-TUBE TID Furosemide [Lasix] 20 mg PEG/G-TUBE DAILY Oxybutynin Chloride [Ditropan] 5 mg PEG/G-TUBE TID #90 tab Acetaminophen Oral Susp [Tylenol] 320 mg PEG/G-TUBE Q6H PRN PRN Reason: Fever And/ Or Pain Omeprazole Magnesium [PriLOSEC Oral Susp] 20 mg PEG/G-TUBE DAILY carBAMazepine [carBAMazepine Oral Susp] 300 mg PEG/G-TUBE Q8H Cranberry Fruit Extract [Cranberry] 500 mg PEG/G-TUBE Q12H Metoprolol Tartrate [Lopressor] 50 mg PEG/G-TUBE BID Jevity 1.5 Sherman Liquid 1,000 ml PEJ/J-TUBE DAILY Discharge Medication List Amantadine 50mg/5ml 100 mg PEG/G-TUBE Q12H 12/28/17 [History] Ascorbic Acid [Vitamin C] 250 mg PEG/G-TUBE DAILY 12/28/17 [History] Cholecalciferol [Vitamin D3 (25 Mcg = 1000 Iu)] 1,000 unit PEG/G-TUBE DAILY 12/28/17 [History] Docusate Oral Soln [Colace Oral Soln] 200 mg PEG/G-TUBE BID 12/28/17 [History] Scopolamine 1.5MG/72Hr Patch [TransDerm Scop] 1 patch TRANSDERM Q72H 12/28/17 [History] guaiFENesin [guaiFENesin Oral Solution] 200 mg PEG/G-TUBE Q6H PRN 12/28/17 [History] Baclofen 5 mg PEG/G-TUBE TID 04/07/18 [History] Furosemide [Lasix] 20 mg PEG/G-TUBE DAILY 05/24/18 [History] Oxybutynin Chloride [Ditropan] 5 mg PEG/G-TUBE TID #90 tab 07/29/18 [Rx] Acetaminophen Oral Susp [Tylenol] 320 mg PEG/G-TUBE Q6H PRN 01/26/19 [History] Omeprazole Magnesium [PriLOSEC Oral Susp] 20 mg PEG/G-TUBE DAILY 01/26/19 [History] carBAMazepine [carBAMazepine Oral Susp] 300 mg PEG/G-TUBE Q8H 04/15/19 [History] Cranberry Fruit Extract [Cranberry] 500 mg PEG/G-TUBE Q12H 06/03/19 [History] Metoprolol Tartrate [Lopressor] 50 mg PEG/G-TUBE BID 07/29/19 [History] Jevity 1.5 Sherman Liquid 1,000 ml PEJ/J-TUBE DAILY 07/30/19 [History] Amoxicillin/Potassium Clav [Augmentin 875-125 Tablet] 1 tab PO BID 3 Days #6 tab 08/04/19 [Rx] Ipratropium-Albuterol Nebulize [Duoneb 0.5 mg-3 mg/3 ml Soln] 3 ml INHALATION RT-QID ampul.neb 08/04/19 [Rx] Follow up Appointment(s)/Referral(s): Matteo Hernandez MD [Primary Care Provider] - 1-2 days Activity/Diet/Wound Care/Special Instructions: Patient is going to [facility]. RECOMMEND REPEAT FOLLOWUP CHEST XRAY IN ONE WEEK STRICT ASPIRATION PRECAUTIONS. HOB 45 DEGREES ELEVATED AT ALL TIMES. Discharge Disposition: TRANSFER TO SNF/ECF
--- NOTE | 2019-08-04 15:43 | P.GSCN ---
History of Present Illness Consult date: 08/04/19 Reason for Consult: peg tube leaking History of present illness: CHIEF COMPLAINT: peg tube leaking HISTORY OF PRESENT ILLNESS: General surgery consult placed to evaluate patients PEG tube which apparently is leaking from the side port when it being flushed or medications are being administered. PAST MEDICAL HISTORY: See list. PAST SURGICAL HISTORY: See list. SOCIAL HISTORY: No illicit drug use. REVIEW OF SYSTEMS: Unable to obtain thorough review of systems PHYSICAL EXAM: VITAL SIGNS: Reviewed. GENERAL: Well-developed in no acute distress. HEENT: No sclera icterus. Extraocular movements grossly intact. Moist buccal mucosa. Head is atraumatic, normocephalic. ABDOMEN: Soft. Nondistended. Nontender. PEG tube intact with small leak at side port. NEUROLOGIC: Alert and oriented. Cranial nerves II through XII grossly intact. ASSESSMENT: 1. Malfunctioning PEG tube PLAN: PEG tube evaluated at the bedside. Balloon deflated and gastrostomy tube removed. 18F tube inserted at the bedside and inflated with 10cc normal saline. Patient tolerated well. May resume tube feedings. Nurse practitioner note has been reviewed by physician. Signing provider agrees with the documented findings, assessment, and plan of care. Past Medical History Past Medical History: Deep Vein Thrombosis (DVT), GERD/Reflux, Hypertension, Musculoskeletal Disorder, Pneumonia, Renal Disease Additional Past Medical History / Comment(s): MS, cognitive impariment/ non verbal, NPO-peg tube,DVT-arm , IDC ,INCONT OF BOWEL. DYSARTHRIA/ANARTHRIA/DYSPHAGIA. BEDBOUND, RACHEL LIFT TO W/C, neurogenic bladder,m History of Any Multi-Drug Resistant Organisms: ESBL, MRSA Year Discovered:: 07/30/19 ESBL-E.coli; 10/21/17 MRSA MDRO Source:: Urine & Blood-ESBL; Urine-MRSA Additional Past Surgical History / Comment(s): PEG TUBE, HX OF GASTROSTOMY, Past Anesthesia/Blood Transfusion Reactions: Unable to Obtain Past Psychological History: Depression Additional Psychological History / Comment(s): PT RESIDES AT [place] [phone] Smoking Status: Unknown if ever smoked Past Alcohol Use History: None Reported Past Drug Use History: None Reported - Past Family History Father Family Medical History: Unable to Obtain Additional Family Medical History / Comment(s): patient is nonverbal Mother Family Medical History: Unable to Obtain Additional Family Medical History / Comment(s): patient is nonverbal Medications and Allergies Home Medications Medication Instructions Recorded Confirmed Type Amantadine 50mg/5ml 100 mg PEG/G-TUBE Q12H 12/28/17 07/30/19 History Ascorbic Acid [Vitamin C] 250 mg PEG/G-TUBE DAILY 12/28/17 07/30/19 History Cholecalciferol [Vitamin D3 (25 1,000 unit PEG/G-TUBE DAILY 12/28/17 07/30/19 History Mcg = 1000 Iu)] Docusate Oral Soln [Colace Oral 200 mg PEG/G-TUBE BID 12/28/17 07/30/19 History Soln] Scopolamine 1.5MG/72Hr Patch 1 patch TRANSDERM Q72H 12/28/17 07/29/19 History [TransDerm Scop] guaiFENesin [guaiFENesin Oral 200 mg PEG/G-TUBE Q6H PRN 12/28/17 07/30/19 History Solution] Baclofen 5 mg PEG/G-TUBE TID 04/07/18 07/30/19 History Furosemide [Lasix] 20 mg PEG/G-TUBE DAILY 05/24/18 07/30/19 History Oxybutynin Chloride [Ditropan] 5 mg PEG/G-TUBE TID #90 tab 07/29/18 07/30/19 Rx Acetaminophen Oral Susp [Tylenol] 320 mg PEG/G-TUBE Q6H PRN 01/26/19 07/30/19 History Omeprazole Magnesium [PriLOSEC 20 mg PEG/G-TUBE DAILY 01/26/19 07/30/19 History Oral Susp] carBAMazepine [carBAMazepine Oral 300 mg PEG/G-TUBE Q8H 04/15/19 07/30/19 History Susp] Cranberry Fruit Extract [Cranberry] 500 mg PEG/G-TUBE Q12H 06/03/19 07/30/19 History Metoprolol Tartrate [Lopressor] 50 mg PEG/G-TUBE BID 07/29/19 07/30/19 History Jevity 1.5 Sherman Liquid 1,000 ml PEJ/J-TUBE DAILY 07/30/19 07/30/19 History Amoxicillin/Potassium Clav 1 tab PO BID 3 Days #6 tab 08/04/19 Rx [Augmentin 875-125 Tablet] Ipratropium-Albuterol Nebulize 3 ml INHALATION RT-QID ampul.neb 08/04/19 Rx [Duoneb 0.5 mg-3 mg/3 ml Soln] Allergies Allergy/AdvReac Type Severity Reaction Status Date / Time meropenem [From Merrem] Allergy Rash/Hives Verified 07/29/19 22:45 Surgical - Exam Vital Signs Temp Pulse Resp BP Pulse Ox 99.8 F H 75 20 169/113 96 07/29/19 22:40 07/29/19 22:40 07/29/19 22:40 07/29/19 22:40 07/29/19 22:40 Results - Labs 08/02/19 07:11 08/02/19 07:11 Abnormal Lab Results - Last 24 Hours (Table) 08/03/19 08/04/19 08/04/19 Range/Units 17:56 01:32 11:17 POC Glucose (mg/dL) 113 H 108 H 117 H (75-99) mg/dL Microbiology - Last 24 Hours (Table) 07/29/19 23:27 Blood Culture - Preliminary Blood No Growth after 120 hours
[2019-08-04 17:06] LABS: Glucose,Whole Blood 128 mg/dL (75-99)
[2019-08-04] MEDS: AMOXIC-POT CLAV 875-125MG 1 EACH TAB PO SCH (21:49)
--- NOTE | 2019-08-04 22:57 | P.PN ---
Subjective Progress Note Date: 08/04/19 Principal diagnosis: This is a 59 year old male who was recently admitted for aspiration pneumonia and is being closely monitored. No acute overnight issues. Patient was to be discharged today and David phoned the nurse on the unit inquiring about his present peg tube leaking and requesting to have it replaced. Surgery was consulted for a replacement peg tube. Dr. Case is following. Peg tube was replaced and is being closely monitored to ensure the leaking has subsided. Guarded prognosis. Objective - Vital Signs Vital signs: Vital Signs Temp 98.7 F 08/04/19 13:26 Pulse 86 08/04/19 19:55 Resp 18 08/04/19 19:45 BP 134/96 08/04/19 13:26 Pulse Ox 99 08/04/19 13:26 Intake & Output 08/04/19 08/04/19 08/05/19 06:59 18:59 06:59 Intake Total 0 Output Total 900 2350 Balance -900 -2350 Intake: Oral 0 Output: Urine 900 2350 Uretheral (Stein) 900 600 Other: Voiding Method Indwelling Catheter Indwelling Catheter - Exam On exam, patient is lying in bed and appears in no acute distress. Vital signs are stable Heent: conjunctivae normal, EOMs intact Neck: supple, no lymph nodes noted, no JVD noted Cardiovascular: S1, S2 muffled Respiratory: breath sounds diminished at the bases with scattered rhonchi noted Abdomen: soft, peg tube noted Legs: no swelling or edema noted Nervous system: no new focal deficits - Labs CBC & Chem 7: 08/02/19 07:11 08/02/19 07:11 Labs: Abnormal Lab Results - Last 24 Hours (Table) 08/04/19 08/04/19 08/04/19 Range/Units 01:32 11:17 17:01 POC Glucose (mg/dL) 108 H 117 H 128 H (75-99) mg/dL Microbiology - Last 24 Hours (Table) 07/29/19 23:27 Blood Culture - Preliminary Blood No Growth after 120 hours Assessment and Plan Assessment: Aspiration pneumonia, bilateral, right more than left with possible sepsis, present on admission Change in mental status, acute metabolic encephalopathy, possibly secondary to sepsis ESBL, E coli from the urine and UTI, acute Chronic metabolic encephalopathy, multifactorial Peg tube replacement History of previous recurrent urinary tract infection Multiple sclerosis with contractures status post PEG tube placement currently History of DVT GERD Hypertension History of DJD History of bowel incontinence History of neurogenic bladder History of extended-spectrum beta-lactamase organisms and as well as MRSA, previously History of depression Full Code Recommendations and discussion: Recommend to continue current medications, management, and symptomatic treatment. Will continue to monitor closely. Surgery was consulted for peg tube replacement as David called the unit upon time of discharge today and made staff reporter aware that the peg tube had been leaking and asking for a replacement. Surgery was consulted and Dr. Case replaced the peg tube. Tube feeding were resumed and will continue to monitor closely for leaking and to ensure it is working properly and patient is tolerating well. Further recommendations to follow. Guarded prognosis. Probable discharge in 24 hours.
--- NOTE | 2019-08-04 23:02 | PN ---
PROGRESS NOTE DATE OF SERVICE: 08/04/2019. REASON FOR FOLLOWUP: ESBL E coli urinary tract infection. INTERVAL HISTORY: The patient was seen on rounds this afternoon. The patient has been afebrile, has been breathing comfortably. No hemodynamic instability has been noted and has been tolerating tube feeds. No diarrhea reported by nursing staff. The patient is unable to provide any history. PHYSICAL EXAMINATION: Blood pressure 126/80 with a pulse of 86, temperature 98.8. He is 95% on room air. General description is a middle-aged male lying in bed in no distress. Respiratory system: Unlabored breathing. Decreased breath sounds at the bases. No wheeze. Heart S1, S2. Regular rate and rhythm. ABDOMEN: Soft. No tenderness. LABS: Hemoglobin is 11.1, white count 7.6. BUN of 12, creatinine 0.65. DIAGNOSTIC IMPRESSION AND PLAN: Patient with ESBL E coli urinary tract infection. Followup UA has been negative. The patient is afebrile. White count normal. Underlying urinary tract infection has been adequately treated. Invanz has been discontinued. Continue supportive care. MMODL / IJN: [id number] /
[2019-08-05 01:25] LABS: Glucose,Whole Blood 109 mg/dL (75-99)
[2019-08-05] MEDS: LEVOFLOXACIN 750MG-D5W PMX 750 MG in DEXTROSE/WATER 1 150ML.BAG IVPB SCH ×2 (01:26→01:34)
[2019-08-05 05:24] VITALS: BP 108/71; RESP 20; TEMP 98.5
[2019-08-05 06:43] LABS: Glucose,Whole Blood 133 mg/dL (75-99)
[2019-08-05] MEDS: IPRATROPIUM-ALBUTEROL 3 ML NEB INHALATION SCH ×2 (07:13→11:21)
[2019-08-05 07:24] VITALS: PULSE 88
[2019-08-05] MEDS: BACLOFEN 10 MG TAB PEG/G-TUBE SCH (08:40)
[2019-08-05] MEDS: ASCORBIC ACID 500 MG TAB PEG/G-TUBE SCH (08:41)
[2019-08-05] MEDS: AMOXIC-POT CLAV 875-125MG 1 EACH TAB PO SCH (08:41)
[2019-08-05] MEDS: CHOLECALCIFEROL 1,000 UNIT TAB PEG/G-TUBE SCH (08:41)
[2019-08-05] MEDS: FUROSEMIDE 20 MG TAB PEG/G-TUBE SCH (08:41)
[2019-08-05] MEDS: OXYBUTYNIN CHLORIDE 5 MG TAB PEG/G-TUBE SCH (08:41)
[2019-08-05] MEDS: METOPROLOL TARTRATE 50 MG TAB PEG/G-TUBE SCH (08:41)
[2019-08-05] MEDS: AMANTADINE HCL 100 MG/10 ML CUP PEG/G-TUBE SCH (08:42)
[2019-08-05] MEDS: HEPARIN SODIUM,PORCINE 5,000 UNIT/ML 1 ML VIAL SQ SCH (08:42)
[2019-08-05] MEDS: PANTOPRAZOLE SODIUM 40 MG GRANULE PKT PEG/G-TUBE SCH (08:43)
[2019-08-05] MEDS: DOCUSATE ORAL SOLN 100 MG/10 ML CUP PEG/G-TUBE SCH (08:44)
[2019-08-05 08:52] VITALS: BMI 22.1
[2019-08-05 11:50] LABS: Glucose,Whole Blood 108 mg/dL (75-99)
--- NOTE | 2019-08-07 15:46 | CDI ---
Documentation Clarification Form Date: 08/07/19 From: Katia Hernandez Phone: If you have a question about this query, please contact Deb Bergeron, Delivery Specialist at [phone] between 8am and 5pm. Admit Date: 07/30/19 Discharge Date: 08/05/19 Patient Name: Chris Marvin Visit Number: [id number] ATTENTION: The Clinical Documentation Specialists (CDI) and [facility] Coding Staff appreciate your assistance in clarifying documentation. Please respond to the clarification below the line at the bottom and electronically sign. The CDI & [facility] Coding staff will review the response and follow-up if needed. Please note: Queries are made part of the Legal Health Record. If you have any questions, please contact the author of this message via ITS. Dear Dr. Dara Crowe, Conflicting documentation has been found in the medical record: Per DS - aspiration pneumonia, bilateral, right more than left, with possible sepsis, POA. Per query response - states patient's UTI due Stein catheter. PN 07/31 states sepsis, source is gram negative UTI. History/Risk Factors: asp PNA, metabolic encephalopathy, gastrostomy malfunction, MS Clinical Indicators: WBC-12.2, neutrophil-9.6, lactic acid-0.8, T-99.8/97.5, P- 75/96, R-20, BP-169/113, O2 sat-96 RA, urine culture grew E coli Treatment: IV fluids, IV Levaquin, IV Zosyn, In your opinion, what is the most the cause of the sepsis after study? Aspiration pneumonia Infection due to indwelling catheter Other explanation of clinical findings Unable to determine (no explanation for clinical findings) Aspiration pneumonia Infection due to indwelling catheter [facility]
== END 2019-08-05 12:48 | DRG 698 ==
LOC: EC 22:36 → 4MS4W 07-30 01:41
PROVIDERS: ADMIT Hospitalist; ATTEND Hospitalist
PROC: 0D20XUZ Change Feeding Device in Upper Intestinal Tract, External Approach (ICD-10-PCS; principal; 2019-08-04)
DX: T83.511A Infection and inflammatory reaction due to indwelling urethral catheter, initial encounter (principal); J69.0 Pneumonitis due to inhalation of food and vomit; A41.51 Sepsis due to Escherichia coli [E. coli]; G93.41 Metabolic encephalopathy; K94.23 Gastrostomy malfunction; Z16.12 Extended spectrum beta lactamase (ESBL) resistance; N39.0 Urinary tract infection, site not specified; G35 Multiple sclerosis; N31.9 Neuromuscular dysfunction of bladder, unspecified; R13.10 Dysphagia, unspecified; R15.9 Full incontinence of feces; R47.1 Dysarthria and anarthria; I10 Essential (primary) hypertension; F32.9 Major depressive disorder, single episode, unspecified; K21.9 Gastro-esophageal reflux disease without esophagitis; M62.49 Contracture of muscle, multiple sites; R26.9 Unspecified abnormalities of gait and mobility; M19.90 Unspecified osteoarthritis, unspecified site; Z74.01 Bed confinement status; Z79.899 Other long term (current) drug therapy; Z87.440 Personal history of urinary (tract) infections; Z86.718 Personal history of other venous thrombosis and embolism; Z87.01 Personal history of pneumonia (recurrent); Z86.14 Personal history of Methicillin resistant Staphylococcus aureus infection; Z86.19 Personal history of other infectious and parasitic diseases; Z88.1 Allergy status to other antibiotic agents; Y84.6 Urinary catheterization as the cause of abnormal reaction of the patient, or of later complication, without mention of misadventure at the time of the procedure; Y92.129 Unspecified place in nursing home as the place of occurrence of the external cause
CPT/HCPCS: 36415; 71045; 80048; 80053; 81001; 83605; 85025; 85610; 85730; 87040; 87077; 87086; 87186; 87502; 93005; 94640; 94760; 96361; 96365; 99285

== ENCOUNTER 2019-08-20 23:28 | Emergency (ER) | payer MEDICARE, OTHER ==
--- NOTE | 2019-08-20 23:31 | ED ---
Fall HPI - General Stated Complaint: Fall Time Seen by Provider: 08/20/19 23:31 - History of Present Illness Initial Comments: Chris is a pleasant 59 yo male with debilitating MS, patient is contracted, bedbound, 2 person assist who lives at [facility]. Patient is brought to the emergency department today by EMS for evaluation after a fall. Per EMS the patient was being rolled in his bed when he accidentally rolled out of the bed and fell to the ground. Patient did hit the back of his head and he noticed some scant bleeding, he did not lose consciousness. He was assisted back in bed where EMS found him and transported him to the hospital. Patient denies any complaints. Denies any pain. Patient believes his tetanus is up-to-date. - Related Data Home Medications Medication Instructions Recorded Confirmed Amantadine 50mg/5ml 100 mg PEG/G-TUBE Q12H 12/28/17 07/30/19 Ascorbic Acid [Vitamin C] 250 mg PEG/G-TUBE DAILY 12/28/17 07/30/19 Cholecalciferol [Vitamin D3 (25 1,000 unit PEG/G-TUBE DAILY 12/28/17 07/30/19 Mcg = 1000 Iu)] Docusate Oral Soln [Colace Oral 200 mg PEG/G-TUBE BID 12/28/17 07/30/19 Soln] Scopolamine 1.5MG/72Hr Patch 1 patch TRANSDERM Q72H 12/28/17 07/29/19 [TransDerm Scop] guaiFENesin [guaiFENesin Oral 200 mg PEG/G-TUBE Q6H PRN 12/28/17 07/30/19 Solution] Baclofen 5 mg PEG/G-TUBE TID 04/07/18 07/30/19 Furosemide [Lasix] 20 mg PEG/G-TUBE DAILY 05/24/18 07/30/19 Acetaminophen Oral Susp [Tylenol] 320 mg PEG/G-TUBE Q6H PRN 01/26/19 07/30/19 Omeprazole Magnesium [PriLOSEC 20 mg PEG/G-TUBE DAILY 01/26/19 07/30/19 Oral Susp] carBAMazepine [carBAMazepine Oral 300 mg PEG/G-TUBE Q8H 04/15/19 07/30/19 Susp] Cranberry Fruit Extract [Cranberry] 500 mg PEG/G-TUBE Q12H 06/03/19 07/30/19 Metoprolol Tartrate [Lopressor] 50 mg PEG/G-TUBE BID 07/29/19 07/30/19 Jevity 1.5 Sherman Liquid 1,000 ml PEJ/J-TUBE DAILY 07/30/19 07/30/19 Previous Rx's Medication Instructions Recorded Oxybutynin Chloride [Ditropan] 5 mg PEG/G-TUBE TID #90 tab 07/29/18 Amoxicillin/Potassium Clav 1 tab PO BID 3 Days #6 tab 08/04/19 [Augmentin 875-125 Tablet] Ipratropium-Albuterol Nebulize 3 ml INHALATION RT-QID ampul.neb 08/04/19 [Duoneb 0.5 mg-3 mg/3 ml Soln] Allergies Allergy/AdvReac Type Severity Reaction Status Date / Time meropenem [From Merrem] Allergy Rash/Hives Verified 08/20/19 23:41 Review of Systems ROS Statement: Those systems with pertinent positive or pertinent negative responses have been documented in the HPI. ROS Other: All systems not noted in ROS Statement are negative. Past Medical History Past Medical History: Deep Vein Thrombosis (DVT), GERD/Reflux, Hypertension, Musculoskeletal Disorder, Pneumonia, Renal Disease Additional Past Medical History / Comment(s): MS, cognitive impariment/ non verbal, NPO-peg tube,DVT-arm , IDC ,INCONT OF BOWEL. DYSARTHRIA/ANARTHRIA/DYSPHAGIA. BEDBOUND, RACHEL LIFT TO W/C, neurogenic bladder,m History of Any Multi-Drug Resistant Organisms: ESBL, MRSA Date of last positivie culture/infection: 07/30/19 ESBL-E.coli; 10/21/17 MRSA MDRO Source:: Urine & Blood-ESBL; Urine-MRSA Additional Past Surgical History / Comment(s): PEG TUBE, HX OF GASTROSTOMY, Past Anesthesia/Blood Transfusion Reactions: Unable to Obtain Past Psychological History: Depression Additional Psychological History / Comment(s): PT RESIDES AT [facility] [phone] Smoking Status: Unknown if ever smoked Past Alcohol Use History: None Reported Past Drug Use History: None Reported - Past Family History Father Family Medical History: Unable to Obtain Additional Family Medical History / Comment(s): patient is nonverbal Mother Family Medical History: Unable to Obtain Additional Family Medical History / Comment(s): patient is nonverbal General Exam - General Exam Comments Initial Comments: Physical Exam GENERAL: Chronically ill-appearing, contracted, bedbound HENT: Normocephalic Small abrasion on right occipital scalp, no laceration, no significant bleeding No roach signs, no raccoon eyes EYES: PERRL, EOMI PULMONARY: Unlabored respirations. CARDIOVASCULAR: RRR Warm and well perfused extremities ABDOMEN: Non-distended SKIN: No rashes or bruising No obvious injuries : Deferred NEUROLOGIC: Alert and oriented Contraction of all extremities MUSCULOSKELETAL: Contraction of all extremities No acute injuries PSYCHIATRIC: No suicide ideation Course Vital Signs 08/20/19 23:29 Temperature 97.8 F Pulse Rate 84 Respiratory 18 Rate Blood Pressure 163/72 O2 Sat by Pulse 95 Oximetry Medical Decision Making - Medical Decision Making The patient was seen and evaluated, history is obtained from patient and EMS. Patient is minimally verbal secondary to his advanced MS however he is able to answer yes and no appropriately. Patient was rolled out of bed onto the ground, he did hit his head he did not lose consciousness he does not have any pain he does not have a headache doesn't have any new focal neurologic deficits or weaknesses. Patient was seen [facility], patient does not have any significant injuries. Patient is at his baseline. At this time I don't feel there is any indication for head CT or imaging as there is no identifiable injuries. Patient is agreeable to this. Patient believes his tetanus is up-to-date. The wound on the posterior scalp was washed and dressed. [facility]. Disposition Clinical Impression: Fall, Abrasion, scalp w/o infection Disposition: HOME SELF-CARE Condition: Stable Instructions (If sedation given, give patient instructions): Abrasion (ED) Is patient prescribed a controlled substance at d/c from ED?: No Referrals: Matteo Hernandez MD [Primary Care Provider] - 1-2 days
[2019-08-20 23:41] VITALS: BP 163/72; PULSE 84; RESP 18; TEMP 97.8
== END 2019-08-21 00:14 | disposition home or self-care (01) ==
LOC: EC 23:28
DX: S00.01XA Abrasion of scalp, initial encounter (principal); G35 Multiple sclerosis; K21.9 Gastro-esophageal reflux disease without esophagitis; G31.84 Mild cognitive impairment of uncertain or unknown etiology; I10 Essential (primary) hypertension; F32.9 Major depressive disorder, single episode, unspecified; Z88.1 Allergy status to other antibiotic agents; Z79.899 Other long term (current) drug therapy; Z93.1 Gastrostomy status; Z86.14 Personal history of Methicillin resistant Staphylococcus aureus infection; Z87.19 Personal history of other diseases of the digestive system; Z74.01 Bed confinement status; W06.XXXA Fall from bed, initial encounter; Y92.009 Unspecified place in unspecified non-institutional (private) residence as the place of occurrence of the external cause
CPT/HCPCS: 99283

== ENCOUNTER 2019-08-21 17:39 | Emergency (ER) | payer MEDICARE, OTHER ==
[2019-08-21 18:01] VITALS: TEMP 98.8
--- NOTE | 2019-08-21 18:49 | XR ---
EXAMINATION TYPE: XR KUB DATE OF EXAM: 08/21/2019 COMPARISON: NONE HISTORY: Abdominal pain TECHNIQUE: Single view FINDINGS: There is no sign of intestinal obstruction or pneumoperitoneum. There is gastrostomy tube n oted. There is significant deformity in the left hip with old femoral neck fracture. There is osteope [place]. There are no pathologic calcifications over the kidneys. IMPRESSION: Nonacute abdomen. No free air. No change.
--- NOTE | 2019-08-21 18:49 | ED ---
General Adult HPI - General Chief complaint: Abdominal Pain Stated complaint: poss bowel obstruction Time Seen by Provider: 08/21/19 17:49 Source: patient, EMS, old records reviewed Mode of arrival: EMS Limitations: no limitations - History of Present Illness Initial comments: 59-year-old cognitively impaired/nonverbal male who is bedbound and stays at [facility] presents to the emergency department for abnormal outpatient x-ray. Patient had an x-ray performed while at his facility and was diagnosed with an ileus. Patient is not noted to be vomiting here in the emergency department. He seems comfortable. He does not appear to be in distress. Patient has no other complaints at this time including shortness of breath, chest pain, abdominal pain, nausea or vomiting, headache, or visual changes. - Related Data Home Medications Medication Instructions Recorded Confirmed Amantadine 50mg/5ml 100 mg PEG/G-TUBE Q12H 12/28/17 07/30/19 Ascorbic Acid [Vitamin C] 250 mg PEG/G-TUBE DAILY 12/28/17 07/30/19 Cholecalciferol [Vitamin D3 (25 1,000 unit PEG/G-TUBE DAILY 12/28/17 07/30/19 Mcg = 1000 Iu)] Docusate Oral Soln [Colace Oral 200 mg PEG/G-TUBE BID 12/28/17 07/30/19 Soln] Scopolamine 1.5MG/72Hr Patch 1 patch TRANSDERM Q72H 12/28/17 07/29/19 [TransDerm Scop] guaiFENesin [guaiFENesin Oral 200 mg PEG/G-TUBE Q6H PRN 12/28/17 07/30/19 Solution] Baclofen 5 mg PEG/G-TUBE TID 04/07/18 07/30/19 Furosemide [Lasix] 20 mg PEG/G-TUBE DAILY 05/24/18 07/30/19 Acetaminophen Oral Susp [Tylenol] 320 mg PEG/G-TUBE Q6H PRN 01/26/19 07/30/19 Omeprazole Magnesium [PriLOSEC 20 mg PEG/G-TUBE DAILY 01/26/19 07/30/19 Oral Susp] carBAMazepine [carBAMazepine Oral 300 mg PEG/G-TUBE Q8H 04/15/19 07/30/19 Susp] Cranberry Fruit Extract [Cranberry] 500 mg PEG/G-TUBE Q12H 06/03/19 07/30/19 Metoprolol Tartrate [Lopressor] 50 mg PEG/G-TUBE BID 07/29/19 07/30/19 Jevity 1.5 Sherman Liquid 1,000 ml PEJ/J-TUBE DAILY 07/30/19 07/30/19 Previous Rx's Medication Instructions Recorded Oxybutynin Chloride [Ditropan] 5 mg PEG/G-TUBE TID #90 tab 07/29/18 Amoxicillin/Potassium Clav 1 tab PO BID 3 Days #6 tab 08/04/19 [Augmentin 875-125 Tablet] Ipratropium-Albuterol Nebulize 3 ml INHALATION RT-QID ampul.neb 08/04/19 [Duoneb 0.5 mg-3 mg/3 ml Soln] Allergies Allergy/AdvReac Type Severity Reaction Status Date / Time meropenem [From Merrem] Allergy Rash/Hives Verified 08/20/19 23:41 Review of Systems ROS Statement: Those systems with pertinent positive or pertinent negative responses have been documented in the HPI. ROS Other: All systems not noted in ROS Statement are negative. Past Medical History Past Medical History: Deep Vein Thrombosis (DVT), GERD/Reflux, Hypertension, Mus culoskeletal Disorder, Pneumonia, Renal Disease Additional Past Medical History / Comment(s): MS, cognitive impariment/ non verbal, NPO-peg tube,DVT-arm , IDC ,INCONT OF BOWEL. DYSARTHRIA/ANARTHRIA/DYSPHAGIA. BEDBOUND, RACHEL LIFT TO W/C, neurogenic bladder,m History of Any Multi-Drug Resistant Organisms: ESBL, MRSA Date of last positivie culture/infection: 07/30/19 ESBL-E.coli; 10/21/17 MRSA MDRO Source:: Urine & Blood-ESBL; Urine-MRSA Additional Past Surgical History / Comment(s): PEG TUBE, HX OF GASTROSTOMY, Past Anesthesia/Blood Transfusion Reactions: Unable to Obtain Past Psychological History: Depression Smoking Status: Unknown if ever smoked Past Alcohol Use History: None Reported Past Drug Use History: None Reported - Past Family History Father Family Medical History: Unable to Obtain Additional Family Medical History / Comment(s): patient is nonverbal Mother Family Medical History: Unable to Obtain Additional Family Medical History / Comment(s): patient is nonverbal General Exam Limitations: no limitations General appearance: alert, in no apparent distress Head exam: Present: atraumatic, normocephalic, normal inspection Eye exam: Present: normal appearance, PERRL, EOMI. Absent: scleral icterus, conjunctival injection, periorbital swelling ENT exam: Present: normal exam, mucous membranes moist Neck exam: Present: normal inspection, full ROM. Absent: tenderness, meningismus Respiratory exam: Present: normal lung sounds bilaterally. Absent: respiratory distress, wheezes, rales, rhonchi, stridor Cardiovascular Exam: Present: regular rate, normal rhythm, normal heart sounds. Absent: systolic murmur, diastolic murmur, rubs, gallop, clicks GI/Abdominal exam: Present: soft, normal bowel sounds. Absent: distended, tenderness (no abdominal tenderness, abdomen is soft, nondistended), guarding, rebound, rigid Neurological exam: Present: alert Course Vital Signs 08/21/19 17:49 Temperature 98.8 F Pulse Rate 105 H Respiratory 24 Rate Blood Pressure 148/93 O2 Sat by Pulse 94 L Oximetry Medical Decision Making - Medical Decision Making X-ray KUB shows a nonacute abdomen. No free air. No change. I did review this film with Dr. Burleson. At this time patient is in no distress. We recommend inc reasing fluids as he does have some mild subtle burning. Recommend he follows up with primary care in return if he has any worsening symptoms including vomiting. Disposition Clinical Impression: Normal result on radiologic exam Disposition: HOME SELF-CARE Condition: Good Additional Instructions: Please increase patient's fluid intake. Return to the ER if patient has worsening symptoms such as vomiting Is patient prescribed a controlled substance at d/c from ED?: No Referrals: Matteo Hernandez MD [Primary Care Provider] - 1-2 days Time of Disposition: 19:05
[2019-08-21 19:21] VITALS: BP 138/91; PULSE 95; RESP 18
== END 2019-08-21 21:39 | disposition home or self-care (01) ==
LOC: EC 17:39
DX: R10.9 Unspecified abdominal pain (principal); R11.10 Vomiting, unspecified; F32.9 Major depressive disorder, single episode, unspecified; I10 Essential (primary) hypertension; G35 Multiple sclerosis; K21.9 Gastro-esophageal reflux disease without esophagitis; Z79.899 Other long term (current) drug therapy; Z88.1 Allergy status to other antibiotic agents; Z86.718 Personal history of other venous thrombosis and embolism; Z93.1 Gastrostomy status; Z74.01 Bed confinement status; Z86.14 Personal history of Methicillin resistant Staphylococcus aureus infection
CPT/HCPCS: 74018; 99284

== ENCOUNTER 2019-09-08 15:30 | Inpatient (IN) | payer MEDICARE, OTHER ==
[2019-09-08] MEDS ORDERED: PIPERACILLIN-TAZOBACTAM 3.375 GM in SODIUM CHLORIDE 0.9% 100 ML IVPB STA (15:45)
[2019-09-08] MEDS ORDERED: VANCOMYCIN IV PER PHARMACY 1 EACH MISC MISCELLANE PRN (15:45)
--- NOTE | 2019-09-08 15:48 | ED ---
General Adult HPI - General Chief complaint: Recheck/Abnormal Lab/Rx Stated complaint: SOB Time Seen by Provider: 09/08/19 15:41 Source: EMS, old records reviewed Mode of arrival: EMS Limitations: altered mental status, physical limitation - History of Present Illness Initial comments: Patient presents with hypoxemia. He has a history of MS. He doesn't answer questions. He has no further information. - Related Data Home Medications Medication Instructions Recorded Confirmed Amantadine 50mg/5ml 100 mg PEG/G-TUBE Q12H 12/28/17 07/30/19 Ascorbic Acid [Vitamin C] 250 mg PEG/G-TUBE DAILY 12/28/17 07/30/19 Cholecalciferol [Vitamin D3 (25 1,000 unit PEG/G-TUBE DAILY 12/28/17 07/30/19 Mcg = 1000 Iu)] Docusate Oral Soln [Colace Oral 200 mg PEG/G-TUBE BID 12/28/17 07/30/19 Soln] Scopolamine 1.5MG/72Hr Patch 1 patch TRANSDERM Q72H 12/28/17 07/29/19 [TransDerm Scop] guaiFENesin [guaiFENesin Oral 200 mg PEG/G-TUBE Q6H PRN 12/28/17 07/30/19 Solution] Baclofen 5 mg PEG/G-TUBE TID 04/07/18 07/30/19 Furosemide [Lasix] 20 mg PEG/G-TUBE DAILY 05/24/18 07/30/19 Acetaminophen Oral Susp [Tylenol] 320 mg PEG/G-TUBE Q6H PRN 01/26/19 07/30/19 Omeprazole Magnesium [PriLOSEC 20 mg PEG/G-TUBE DAILY 01/26/19 07/30/19 Oral Susp] carBAMazepine [carBAMazepine Oral 300 mg PEG/G-TUBE Q8H 04/15/19 07/30/19 Susp] Cranberry Fruit Extract [Cranberry] 500 mg PEG/G-TUBE Q12H 06/03/19 07/30/19 Metoprolol Tartrate [Lopressor] 50 mg PEG/G-TUBE BID 07/29/19 07/30/19 Jevity 1.5 Sherman Liquid 1,000 ml PEJ/J-TUBE DAILY 07/30/19 07/30/19 Previous Rx's Medication Instructions Recorded Oxybutynin Chloride [Ditropan] 5 mg PEG/G-TUBE TID #90 tab 07/29/18 Amoxicillin/Potassium Clav 1 tab PO BID 3 Days #6 tab 08/04/19 [Augmentin 875-125 Tablet] Ipratropium-Albuterol Nebulize 3 ml INHALATION RT-QID ampul.neb 08/04/19 [Duoneb 0.5 mg-3 mg/3 ml Soln] Allergies Allergy/AdvReac Type Severity Reaction Status Date / Time meropenem [From Merrem] Allergy Rash/Hives Verified 09/08/19 15:45 Review of Systems ROS Statement: Those systems with pertinent positive or pertinent negative responses have been documented in the HPI. ROS Other: All systems not noted in ROS Statement are negative. Past Medical History Past Medical History: Deep Vein Thrombosis (DVT), GERD/Reflux, Hypertension, Musculoskeletal Disorder, Pneumonia, Renal Disease Additional Past Medical History / Comment(s): MS, cognitive impariment/ non verbal, NPO-peg tube,DVT-arm , IDC ,INCONT OF BOWEL. DYSARTHRIA/TOÑITO RTHRIA/DYSPHAGIA. BEDBOUND, RACHEL LIFT TO W/C, neurogenic bladder,m History of Any Multi-Drug Resistant Organisms: ESBL, MRSA Date of last positivie culture/infection: 07/30/19 ESBL-E.coli; 10/21/17 MRSA MDRO Source:: Urine & Blood-ESBL; Urine-MRSA Additional Past Surgical History / Comment(s): PEG TUBE, HX OF GASTROSTOMY, Past Anesthesia/Blood Transfusion Reactions: Unable to Obtain Past Psychological History: Depression Smoking Status: Unknown if ever smoked Past Alcohol Use History: None Reported Past Drug Use History: None Reported - Past Family History Father Family Medical History: Unable to Obtain Additional Family Medical History / Comment(s): patient is nonverbal Mother Family Medical History: Unable to Obtain Additional Family Medical History / Comment(s): patient is nonverbal General Exam Limitations: altered mental status, physical limitation General appearance: lethargic, obtunded Head exam: Present: atraumatic Eye exam: Present: normal appearance ENT exam: Present: normal exam Neck exam: Present: normal inspection Respiratory exam: Present: respiratory distress, wheezes, rales Cardiovascular Exam: Present: tachycardia GI/Abdominal exam: Present: soft. Absent: tenderness Rectal exam: Present: deferred Extremities exam: Absent: tenderness Back exam: Absent: tenderness (Symptoms) Neurological exam: Present: other (Patient is obtunded) Skin exam: Present: warm, dry Course Vital Signs 09/08/19 09/08/19 15:35 15:54 Pulse Rate 139 H 140 H Pulse Rate [ 140 H Clark Driver ] Respiratory 31 H 30 H Rate Blood Pressure 144/100 158/116 O2 Sat by Pulse 95 93 L Oximetry Medical Decision Making - Lab Data Result diagrams: 09/08/19 15:45 09/08/19 15:45 Lab Results 09/08/19 09/08/19 09/08/19 Range/Units 15:45 15:45 15:45 WBC 9.4 (3.8-10.6) k/uL RBC 5.27 (4.30-5.90) m/uL Hgb 13.8 (13.0-17.5) gm/dL Hct 42.0 (39.0-53.0) % MCV 79.6 L D (80.0-100.0) fL MCH 26.2 (25.0-35.0) pg MCHC 32.9 (31.0-37.0) g/dL RDW 17.0 H (11.5-15.5) % Plt Count (150-450) k/uL Neutrophils % (Manual) 64 % Band Neutrophils % 23 % Lymphocytes % (Manual) 8 % Monocytes % (Manual) 5 % Metamyelocytes % 1 % Neutrophils # (Manual) 8.10 H (1.3-7.7) k/uL Lymphocytes # (Manual) 0.75 L (1.0-4.8) k/uL Monocytes # (Manual) 0.47 (0-1.0) k/uL Metamyelocytes # (Man) 0.09 H (0) k/uL Nucleated RBCs 0 (0-0) /100 WBC Manual Slide Review Performed Large Platelets Present Anisocytosis Slight Microcytosis Slight Sodium 133 L (137-145) mmol/L Potassium 5.0 (3.5-5.1) mmol/L Chloride 101 (98-107) mmol/L Carbon Dioxide 21 L (22-30) mmol/L Anion Gap 11 mmol/L BUN 21 H (9-20) mg/dL Creatinine 0.71 (0.66-1.25) mg/dL Est GFR (CKD-EPI)AfAm >90 (>60 ml/min/1.73 sqM) Est GFR (CKD-EPI)NonAf >90 (>60 ml/min/1.73 sqM) Glucose 141 H (74-99) mg/dL Plasma Lactic Acid Taurus 1.4 (0.7-2.0) mmol/L Calcium 8.7 (8.4-10.2) mg/dL Total Bilirubin 1.0 (0.2-1.3) mg/dL AST 44 (17-59) U/L ALT 15 L (21-72) U/L Alkaline Phosphatase 158 H (38-126) U/L Total Protein 7.7 (6.3-8.2) g/dL Albumin 3.7 (3.5-5.0) g/dL Influenza Type A RNA (Not Detectd) Influenza Type B (PCR) (Not Detectd) 09/08/19 Range/Units 15:53 WBC (3.8-10.6) k/uL RBC (4.30-5.90) m/uL Hgb (13.0-17.5) gm/dL Hct (39.0-53.0) % MCV (80.0-100.0) fL MCH (25.0-35.0) pg MCHC (31.0-37.0) g/dL RDW (11.5-15.5) % Plt Count (150-450) k/uL Neutrophils % (Manual) % Band Neutrophils % % Lymphocytes % (Manual) % Monocytes % (Manual) % Metamyelocytes % % Neutrophils # (Manual) (1.3-7.7) k/uL Lymphocytes # (Manual) (1.0-4.8) k/uL Monocytes # (Manual) (0-1.0) k/uL Metamyelocytes # (Man) (0) k/uL Nucleated RBCs (0-0) /100 WBC Manual Slide Review Large Platelets Anisocytosis Microcytosis Sodium (137-145) mmol/L Potassium (3.5-5.1) mmol/L Chloride (98-107) mmol/L Carbon Dioxide (22-30) mmol/L Anion Gap mmol/L BUN (9-20) mg/dL Creatinine (0.66-1.25) mg/dL Est GFR (CKD-EPI)AfAm (>60 ml/min/1.73 sqM) Est GFR (CKD-EPI)NonAf (>60 ml/min/1.73 sqM) Glucose (74-99) mg/dL Plasma Lactic Acid Taurus (0.7-2.0) mmol/L Calcium (8.4-10.2) mg/dL Total Bilirubin (0.2-1.3) mg/dL AST (17-59) U/L ALT (21-72) U/L Alkaline Phosphatase (38-126) U/L Total Protein (6.3-8.2) g/dL Albumin (3.5-5.0) g/dL Influenza Type A RNA Not Detected (Not Detectd) Influenza Type B (PCR) Not Detected (Not Detectd) 09/08/19 16:41 Twelve-lead EKG shows ventricular rate 140 bpm, normal NV interval Jag, axis, no ST elevation or depression, interpreted by me as sinus tachycardia. Disposition Clinical Impression: Pneumonia Disposition: ADMITTED IP TO THIS HOSP Condition: Serious Referrals: Matteo Hernandez MD [Primary Care Provider] - 1-2 days
[2019-09-08 16:05] LABS: Anisocytosis Slight; HGB 13.8 gm/dL (13.0-17.5); MCH 26.2 pg (25.0-35.0); MCHC 32.9 g/dL (31.0-37.0); Mean Platelet Volume 9.1; Microcytosis Slight; RBC 5.27 m/uL (4.30-5.90); WBC 9.4 k/uL (3.8-10.6)
[2019-09-08 16:09] LABS: ALT 15 U/L (21-72); AST 44 U/L (17-59); African American GFR (CKD) >90 (>60 ml/min/1.73 sqM); Albumin 3.7 g/dL (3.5-5.0); Alkaline Phosphatase 158 U/L (38-126); Anion Gap 11 mmol/L; Blood Urea Nitrogen 21 mg/dL (9-20); Calcium 8.7 mg/dL (8.4-10.2); Carbon Dioxide 21 mmol/L (22-30); Chloride 101 mmol/L (98-107); Glucose 141 mg/dL (74-99); Non-African American GFR(CKD) >90 (>60 ml/min/1.73 sqM); Sodium 133 mmol/L (137-145); Total Protein 7.7 g/dL (6.3-8.2)
[2019-09-08 16:18] LABS: Band Neutrophils % 23 %; Large Platelets Present; Lymphocytes # (M) 0.75 k/uL (1.0-4.8); Metamyelocytes # (M) 0.09 k/uL (0); Metamyelocytes % 1 %; Monocytes # (M) 0.47 k/uL (0-1.0); Neutrophils % (M) 64 %; Nucleated Red Blood Cells 0 /100 WBC (0-0); Total Cells Counted 200
[2019-09-08] MEDS: SODIUM CHLORIDE 0.9% 500 ML 500 ML IV SCH ×4 (16:30→17:32)
[2019-09-08] MEDS ORDERED: VANCOMYCIN 1,250 MG in SODIUM CHLORIDE 0.9% 250 ML IVPB ONE (16:30)
[2019-09-08] MEDS ORDERED: NALOXONE 0.4 MG/ML 1 ML VIAL IV PRN (16:41)
--- NOTE | 2019-09-08 16:42 | XR ---
EXAMINATION TYPE: XR chest 1V portable DATE OF EXAM: 09/08/2019 COMPARISON: 07/31/2019 HISTORY: Fever TECHNIQUE: Single frontal view of the chest is obtained. FINDINGS: Heart is normal. There is no heart failure. There is some right-sided perihilar infiltrate as well as airspace mild consolidation in the left lower lobe behind the heart. There are chest lead s. Costophrenic angles are clear. There is old healed left rib fracture. IMPRESSION: Mild right-sided perihilar infiltrate. Mild left lower lobe pneumonia. This appears new compared to last exam. Normal heart.
--- NOTE | 2019-09-08 17:22 | P.HPIM ---
History of Present Illness Patient is a 59-year-old male with known history of multiple sclerosis, half-way resident with chronic contractures bedbound has a PEG tube came in because patient is hypoxic with high-grade fever sepsis. Suspicion of aspiration pneumonia because of which patient is being admitted at this time. She was started on vancomycin and Zosyn empirically is (blood cultures are being obtained. Review of Systems Unable to obtain due to his clinical condition Past Medical History Past Medical History: Deep Vein Thrombosis (DVT), GERD/Reflux, Hypertension, Musculoskeletal Disorder, Pneumonia, Renal Disease Additional Past Medical History / Comment(s): MS, cognitive impariment/ non verbal, NPO-peg tube,DVT-arm , IDC ,INCONT OF BOWEL. DYS ARTHRIA/ANARTHRIA/DYSPHAGIA. BEDBOUND, RACHEL LIFT TO W/C, neurogenic bladder,m History of Any Multi-Drug Resistant Organisms: ESBL, MRSA Date of last positivie culture/infection: 07/30/19 ESBL-E.coli; 10/21/17 MRSA MDRO Source:: Urine & Blood-ESBL; Urine-MRSA Additional Past Surgical History / Comment(s): PEG TUBE, HX OF GASTROSTOMY, Past Anesthesia/Blood Transfusion Reactions: Unable to Obtain Past Psychological History: Depression Smoking Status: Unknown if ever smoked Past Alcohol Use History: None Reported Past Drug Use History: None Reported - Past Family History Father Family Medical History: Unable to Obtain Additional Family Medical History / Comment(s): patient is nonverbal Mother Family Medical History: Unable to Obtain Additional Family Medical History / Comment(s): patient is nonverbal Medications and Allergies Home Medications Medication Instructions Recorded Confirmed Type Amantadine 50mg/5ml 100 mg PEG/G-TUBE Q12H 12/28/17 07/30/19 History Ascorbic Acid [Vitamin C] 250 mg PEG/G-TUBE DAILY 12/28/17 07/30/19 History Cholecalciferol [Vitamin D3 (25 1,000 unit PEG/G-TUBE DAILY 12/28/17 07/30/19 History Mcg = 1000 Iu)] Docusate Oral Soln [Colace Oral 200 mg PEG/G-TUBE BID 12/28/17 07/30/19 History Soln] Scopolamine 1.5MG/72Hr Patch 1 patch TRANSDERM Q72H 12/28/17 07/29/19 History [TransDerm Scop] guaiFENesin [guaiFENesin Oral 200 mg PEG/G-TUBE Q6H PRN 12/28/17 07/30/19 History Solution] Baclofen 5 mg PEG/G-TUBE TID 04/07/18 07/30/19 History Furosemide [Lasix] 20 mg PEG/G-TUBE DAILY 05/24/18 07/30/19 History Oxybutynin Chloride [Ditropan] 5 mg PEG/G-TUBE TID #90 tab 07/29/18 07/30/19 Rx Acetaminophen Oral Susp [Tylenol] 320 mg PEG/G-TUBE Q6H PRN 01/26/19 07/30/19 History Omeprazole Magnesium [PriLOSEC 20 mg PEG/G-TUBE DAILY 01/26/19 07/30/19 History Oral Susp] carBAMazepine [carBAMazepine Oral 300 mg PEG/G-TUBE Q8H 04/15/19 07/30/19 History Susp] Cranberry Fruit Extract [Cranberry] 500 mg PEG/G-TUBE Q12H 06/03/19 07/30/19 History Metoprolol Tartrate [Lopressor] 50 mg PEG/G-TUBE BID 07/29/19 07/30/19 History Jevity 1.5 Sherman Liquid 1,000 ml PEJ/J-TUBE DAILY 07/30/19 07/30/19 History Amoxicillin/Potassium Clav 1 tab PO BID 3 Days #6 tab 08/04/19 Rx [Augmentin 875-125 Tablet] Ipratropium-Albuterol Nebulize 3 ml INHALATION RT-QID ampul.neb 08/04/19 Rx [Duoneb 0.5 mg-3 mg/3 ml Soln] Allergies Allergy/AdvReac Type Severity Reaction Status Date / Time meropenem [From Merrem] Allergy Rash/Hives Verified 09/08/19 15:45 Physical Exam Vitals: Vital Signs Temp Pulse Pulse Resp BP Pulse Ox 09/08/19 16:30 103.0 F H 140 H 32 H 136/99 93 L 09/08/19 15:54 140 H 140 H 30 H 158/116 93 L 09/08/19 15:35 139 H 31 H 144/100 95 Intake and Output 09/08/19 09/08/19 09/08/19 06:59 14:59 22:59 Other: Voiding Method Diaper Indwelling Catheter Weight 64.501 kg PHYSICAL EXAMINATION: GENERAL: The patient is alert and in mild respiratory distress on BiPAP HEENT: Pupils are round and equally reacting to light. EOMI. No scleral icterus. No conjunctival pallor. Normocephalic, atraumatic. No pharyngeal erythema. No thyromegaly. CARDIOVASCULAR: S1 and S2 present. No murmurs, rubs, or gallops. PULMONARY: A few bilateral rhonchi and crackles ABDOMEN: Soft, nontender, nondistended, normoactive bowel sounds. No palpable organomegaly. MUSCULOSKELETAL: No joint swelling or deformity. EXTREMITIES: No cyanosis, clubbing, or pedal edema. NEUROLOGICAL: Able to assess patient has chronic contractures significant muscle atrophy in all 4 limbs SKIN: No rashes. Results CBC & Chem 7: 09/08/19 15:45 09/08/19 15:45 Labs: Abnormal Lab Results - Last 24 Hours (Table) 09/08/19 09/08/19 Range/Units 15:45 15:45 MCV 79.6 L D (80.0-100.0) fL RDW 17.0 H (11.5-15.5) % Neutrophils # (Manual) 8.10 H (1.3-7.7) k/uL Lymphocytes # (Manual) 0.75 L (1.0-4.8) k/uL Metamyelocytes # (Man) 0.09 H (0) k/uL Sodium 133 L (137-145) mmol/L Carbon Dioxide 21 L (22-30) mmol/L BUN 21 H (9-20) mg/dL Glucose 141 H (74-99) mg/dL ALT 15 L (21-72) U/L Alkaline Phosphatase 158 H (38-126) U/L Assessment and Plan Plan: -Severe sepsis: Secondary to possible pneumonia possibility of aspiration patient was started on broad-spectrum antibiotics including Zosyn and vancomycin IV fluids will be continued patient received the 2 L of IV fluids., Sputum cultures and blood cultures were obtained. -Chronic Stein catheter which was replaced the patient doesn't have any evidence of urinary tract infection at this time -Dysphagia does have a PEG tube dysphagias chronic -Hypertension -Multiple sclerosis chronic debility with chronic contractures supportive care for this -History of DVT in the past patient is presently not on any anti-correlation the past patient was on Coumadin. But he will he DVT prophylaxis.
[2019-09-08] MEDS: ACETAMINOPHEN ORAL SUSP 160 MG/5 ML CUP PEG/G-TUBE PRN (17:38)
[2019-09-08] MEDS: SODIUM CHLORIDE 0.9% 1,000 ML IV SCH (18:09)
[2019-09-08 18:57] LABS: Partial Thromboplastin Time 28.3 sec (22.0-30.0); Prothrombin Time 10.7 sec (9.0-12.0)
[2019-09-08] MEDS: IPRATROPIUM-ALBUTEROL 3 ML NEB INHALATION SCH (19:56)
[2019-09-08 20:26] LABS: Amorphous Sediment,Urine Moderate /hpf; Appearance,Urine Cloudy (Clear); Bacteria,Urine Rare /hpf; Bilirubin,Urine Negative (Negative); Blood,Urine Moderate (Negative); Color,Urine Yellow; Glucose,Urine (UA) Negative (Negative); Hyaline Casts,Urine 2 /lpf (0-2); Ketones,Urine Negative (Negative); Leukocyte Esterase,Urine Large (Negative); Mucus,Urine Rare /hpf; Nitrite,Urine Negative (Negative); PH, Urine 5.5 (5.0-8.0); Protein,Urine 1+ (Negative); RBC,Urine 3 /hpf (0-5); Specific Gravity,Urine 1.017 (1.001-1.035); Squamous Epithelial Cell,Urine <1 /hpf (0-4); Urobilinogen,Urine <2.0 mg/dL (<2.0); WBC,Urine 29 /hpf (0-5)
[2019-09-08 21:34] LABS: Glucose,Whole Blood 129 mg/dL (75-99)
[2019-09-08 22:20] LABS: MCV 79.6 fL (80.0-100.0)
[2019-09-08] MEDS: HEPARIN SODIUM,PORCINE 5,000 UNIT/ML 1 ML VIAL SQ SCH (22:22)
[2019-09-08] MEDS: METOPROLOL TARTRATE 50 MG TAB PEG/G-TUBE SCH (22:22)
[2019-09-08] MEDS: AMANTADINE HCL 100 MG/10 ML CUP PO SCH (22:22)
[2019-09-08] MEDS: BACLOFEN 10 MG TAB PEG/G-TUBE SCH (22:22)
[2019-09-08] MEDS: SCOPOLAMINE 1.5MG/72HR PATCH TRANSDERM SCH (22:23)
[2019-09-09] MEDS: OXYBUTYNIN CHLORIDE 5 MG TAB PEG/G-TUBE SCH ×4 (00:39→21:21)
[2019-09-09] MEDS ORDERED: FUROSEMIDE 10 MG/ML 2 ML VIAL IV STA (00:55)
[2019-09-09] MEDS ORDERED: FUROSEMIDE 10 MG/ML 4 ML VIAL ONE (00:57)
[2019-09-09] MEDS: VANCOMYCIN 1,000 MG in SODIUM CHLORIDE 0.9% 250 ML IVPB SCH ×2 (05:28→18:14)
[2019-09-09 05:29] LABS: Anisocytosis Slight; HCT 34.4 % (39.0-53.0); HGB 11.2 gm/dL (13.0-17.5); MCH 25.9 pg (25.0-35.0); MCHC 32.5 g/dL (31.0-37.0); MCV 79.7 fL (80.0-100.0); Mean Platelet Volume 8.7; Microcytosis Slight; Platelet Count 414 k/uL (150-450); RBC 4.31 m/uL (4.30-5.90); RDW 17.2 % (11.5-15.5); WBC 12.9 k/uL (3.8-10.6)
[2019-09-09 05:44] LABS: African American GFR (CKD) >90 (>60 ml/min/1.73 sqM); Anion Gap 7 mmol/L; Blood Urea Nitrogen 21 mg/dL (9-20); Calcium 8.5 mg/dL (8.4-10.2); Carbon Dioxide 21 mmol/L (22-30); Chloride 107 mmol/L (98-107); Glucose 94 mg/dL (74-99); Non-African American GFR(CKD) >90 (>60 ml/min/1.73 sqM); Potassium 5.4 mmol/L (3.5-5.1); Sodium 135 mmol/L (137-145)
--- NOTE | 2019-09-09 06:05 | XR ---
EXAMINATION TYPE: XR chest 1V portable DATE OF EXAM: 09/09/2019 COMPARISON: 09/08/2019 HISTORY: Fever. Pneumonia. TECHNIQUE: Single frontal view of the chest is obtained. FINDINGS: There is some patchy infiltrate in the left lower lobe. There is no heart failure. Heart i s slightly enlarged. There are chest leads. There is no definite pleural effusion. IMPRESSION: There is some pneumonia in the left lower lobe that appears slightly worse than yesterda y. No heart failure seen.
[2019-09-09 06:16] LABS: Glucose,Whole Blood 84 mg/dL (75-99)
[2019-09-09] MEDS: IPRATROPIUM-ALBUTEROL 3 ML NEB INHALATION SCH ×4 (07:34→19:19)
[2019-09-09] MEDS: ASCORBIC ACID 500 MG TAB PEG/G-TUBE SCH (08:42)
[2019-09-09] MEDS: HEPARIN SODIUM,PORCINE 5,000 UNIT/ML 1 ML VIAL SQ SCH ×2 (08:42→21:21)
[2019-09-09] MEDS: METOPROLOL TARTRATE 50 MG TAB PEG/G-TUBE SCH ×2 (08:43→21:21)
[2019-09-09] MEDS: BACLOFEN 10 MG TAB PEG/G-TUBE SCH ×3 (08:43→21:20)
[2019-09-09] MEDS: PANTOPRAZOLE SODIUM 40 MG GRANULE PKT PEG/G-TUBE SCH (08:44)
[2019-09-09] MEDS: AMANTADINE HCL 100 MG/10 ML CUP PO SCH ×2 (08:44→21:22)
[2019-09-09] MEDS: CHOLECALCIFEROL 1,000 UNIT TAB PEG/G-TUBE SCH (08:44)
[2019-09-09] MEDS ORDERED: JEVITY CAL PEJ/J-Tube SCH (09:00)
--- NOTE | 2019-09-09 09:22 | P.CNPUL ---
History of Present Illness Consult date: 09/09/19 Requesting physician: Judi Carey Reason for consult: dyspnea, cough, COPD Chief complaint: Aspiration pneumonia History of present illness: This is 59-year-old white male patient of resident of a local long term, with the history of severe MS, poor baseline functioning status, chronic contractures of lower extremities, nonambulatory, patient is essentially bedridden and nonverbal. We have seen patient in consultation during his previous admissions for complications related to sepsis secondary to recurrent urinary tract infections related to Pseudomonas, gram-negative bacteremia, ESBL producing E. coli in the urine. Most recently in July 2019 she was hospitalized for gram-negative sepsis with urine cultures positive for ESBL producing E. coli. Patient was treated, and improved, discharged back to the long term on 08/2019, yesterday on 09/08/2019 patient presents to the hospital per EMS evaluation of hypoxemia, less of breath, and audible congestion, he was placed on the 100% nonrebreather, pulse ox is 95%, she was febrile on admission, with a temp of 103.0F. Chest x-ray was taken showing mild right-sided perihilar infiltrate, and mild left lower lobe pneumonia that appears to be new since his last admission and his last chest x-ray on 07/31/2019. Admission lab work showed a white blood cell count of 9.4, hemoglobin of 13.8, sodium of 133, potassium is 5.0, chloride is 101, CO2 is 21, B1 is 21 creatinine 0.71, troponin was negative 1 is 0.016, urinalysis was positive for moderate amount of blood, large amount of leuks, white blood cells in clumps, rare bacteria, culture is pending, influenza screen was negative. Patient was started on a combination of Zosyn and vancomycin, breathing treatments, he remains nothing by mouth, he is being fed via the PEG tube. He seen this morning in the intensive care unit, remains on a percent nonrebreather mask, his cough is very weak, he is not able to clear secretions, and he is audibly congested. Given a dose of IV Lasix this morning for chest congestion, diuresed, however not sounding significantly better. Review of Systems All systems: negative Constitutional: Denies chills, Denies fever Eyes: denies blurred vision, denies pain Ears, nose, mouth and throat: Denies headache, Denies sore throat Cardiovascular: Denies chest pain, Denies shortness of breath Respiratory: Reports congestion, Reports dyspnea, Reports respiratory i nfections, Denies cough Gastrointestinal: Denies abdominal pain, Denies diarrhea, Denies nausea, Denies vomiting Musculoskeletal: Denies myalgias Musculoskeletal: right: knee stiffness (Chronic contractures involving right lo wer extremity), left: elbow stiffness Integumentary: Denies pruritus, Denies rash Neurological: Reports gait dysfunction, Reports lack of coordination, Reports motor disturbance, Denies numbness, Denies weakness Psychiatric: Denies anxiety, Denies depression Endocrine: Denies fatigue, Denies weight change Past Medical History Past Medical History: Deep Vein Thrombosis (DVT), GERD/Reflux, Hypertension, Musculoskeletal Disorder, Pneumonia, Renal Disease Additional Past Medical History / Comment(s): MS, cognitive impariment/ non laya bal, NPO-peg tube,DVT-arm , IDC ,INCONT OF BOWEL. DYSARTHRIA/ANARTHRIA/DYSPHAGIA. BEDBOUND, RACHEL LIFT TO W/C, neurogenic bladder,m History of Any Multi-Drug Resistant Organisms: ESBL, MRSA Date of last positivie culture/infection: 07/30/19 ESBL-E.coli; 10/21/17 MRSA MDRO Source:: Urine & Blood-ESBL; Urine-MRSA Additional Past Surgical History / Comment(s): PEG TUBE, HX OF GASTROSTOMY, Past Anesthesia/Blood Transfusion Reactions: Unable to Obtain Past Psychological History: Depression Additional Psychological History / Comment(s): PT RESIDES AT [facility] [phone] Smoking Status: Unknown if ever smoked Past Alcohol Use History: None Reported Past Drug Use History: None Reported - Past Family History Father Family Medical History: Unable to Obtain Additional Family Medical History / Comment(s): patient is nonverbal Mother Family Medical History: Unable to Obtain Additional Family Medical History / Comment(s): patient is nonverbal Medications and Allergies Home Medications Medication Instructions Recorded Confirmed Type Amantadine 50mg/5ml 100 mg PEG/G-TUBE Q12H 12/28/17 09/08/19 History Ascorbic Acid [Vitamin C] 250 mg PEG/G-TUBE DAILY 12/28/17 09/08/19 History Cholecalciferol [Vitamin D3 (25 1,000 unit PEG/G-TUBE DAILY 12/28/17 09/08/19 History Mcg = 1000 Iu)] Docusate Oral Soln [Colace Oral 200 mg PEG/G-TUBE BID 12/28/17 09/08/19 History Soln] Scopolamine 1.5MG/72Hr Patch 1 patch TRANSDERM Q72H 12/28/17 09/08/19 History [TransDerm Scop] guaiFENesin [guaiFENesin Oral 200 mg PEG/G-TUBE Q6H PRN 12/28/17 09/08/19 History Solution] Baclofen 5 mg PEG/G-TUBE TID 04/07/18 09/08/19 History Furosemide [Lasix] 20 mg PEG/G-TUBE DAILY 05/24/18 09/08/19 History Acetaminophen Oral Susp [Tylenol] 320 mg PEG/G-TUBE Q6H PRN 01/26/19 09/08/19 History Omeprazole Magnesium [PriLOSEC 20 mg PEG/G-TUBE DAILY 01/26/19 09/08/19 History Oral Susp] carBAMazepine [carBAMazepine Oral 300 mg PEG/G-TUBE Q8H 04/15/19 09/08/19 History Susp] Cranberry Fruit Extract [Cranberry] 500 mg PEG/G-TUBE Q12H 06/03/19 09/08/19 History Metoprolol Tartrate [Lopressor] 50 mg PEG/G-TUBE BID 07/29/19 09/08/19 History Ipratropium-Albuterol Nebulize 3 ml INHALATION RT-QID ampul.neb 08/04/19 09/08/19 Rx [Duoneb 0.5 mg-3 mg/3 ml Soln] Oxybutynin Chloride [Ditropan Oral 5 mg PEG/G-TUBE TID 09/08/19 09/08/19 History Soln] Polyethylene Glycol 3350 [Miralax] 17 gm PO HS 09/08/19 09/08/19 History Allergies Allergy/AdvReac Type Severity Reaction Status Date / Time meropenem [From Merrem] Allergy Rash/Hives Verified 09/08/19 19:11 Physical Exam Vitals: Vital Signs Temp Pulse Pulse Resp BP BP Pulse Ox 09/09/19 07:46 100 09/09/19 07:35 99 09/09/19 04:00 96 104 H 28 H 106/76 95 09/09/19 03:00 96 30 H 120/80 95 09/09/19 02:00 99 30 H 117/84 95 09/09/19 01:00 98.5 F 97 28 H 110/87 95 09/09/19 00:00 100 29 H 123/88 97 09/08/19 23:20 104 H 29 H 09/08/19 23:00 104 H 28 H 115/97 97 09/08/19 22:00 97.1 F L 104 H 27 H 114/80 96 09/08/19 21:46 97.1 F L 106 H 29 H 114/80 94 L 09/08/19 21:00 97.8 F 112 H 30 H 115/83 94 L 09/08/19 20:10 117 H 09/08/19 20:00 115 H 29 H 123/98 94 L 09/08/19 19:57 114 H 09/08/19 19:00 128 H 23 119/88 98 09/08/19 18:00 137 H 30 H 157/121 83 L 09/08/19 17:45 102 F H 142 H 30 H 157/121 90 L 09/08/19 17:28 144 H 30 H 177/116 89 L 09/08/19 17:00 131 H 29 H 152/106 09/08/19 16:30 103.0 F H 140 H 32 H 136/99 93 L 09/08/19 16:00 140 H 30 H 158/116 89 L 09/08/19 15:54 140 H 140 H 30 H 158/116 93 L 09/08/19 15:36 93 L 09/08/19 15:35 139 H 31 H 144/100 95 Intake and Output 09/08/19 09/09/19 09/09/19 22:59 06:59 14:59 Intake Total 110 Output Total 1250 Balance -1140 Intake: IV 110 Sodium Chloride 0.9% 1, 110 000 ml @ 10 mls/hr IV . Q24H [facility] Rx#:[id number] Output: Urine 1250 Other: Voiding Method Diaper Indwelling Catheter Indwelling Catheter # Bowel Movements 1 Weight 64.501 kg 71 kg GENERAL EXAM: Alert, nonverbal, 59-year-old white male, cachectic currently on the 100% nonrebreather, with a pulse ox of 95%, automatic congested and, is not able to clear any secretions HEAD: Normocephalic/atraumatic. EYES: Normal reaction of pupils, equal size. Conjunctiva pink, sclera white. NOSE: Clear with pink turbinates. THROAT: No erythema or exudates. NECK: No masses, no JVD, no thyroid enlargement, no adenopathy. CHEST: No chest wall deformity. Symmetrical expansion. LUNGS: Equal air entry with diffuse rhonchi throughout CVS: Regular rate and rhythm, normal S1 and S2, no gallops, no murmurs, no rubs ABDOMEN: Soft, nontender. No hepatosplenomegaly, normal bowel sounds, no guarding or rigidity. PEG tube present in the left upper abdomen, feedings are on hold right now EXTREMITIES: No clubbing, no edema, no cyanosis, 2+ pulses and upper and lower extremities. Chronic contractures involving upper and lower extremities, muscle weakness and overall rigidity MUSCULOSKELETAL: Chronic contractures, muscle wasting SPINE: No scoliosis or deformity SKIN: No rashes CENTRAL NERVOUS SYSTEM: Alert, unable to assess orientation, patient is nonverbal, he is able to nod his head yes to simple questions Results - Laboratory Findings CBC and BMP: 09/09/19 04:47 09/09/19 04:43 PT/INR, D-dimer PT 10.7 sec (9.0-12.0) 09/08/19 16:07 INR 1.0 (<1.2) 09/08/19 16:07 Abnormal lab findings: Abnormal Labs 09/08/19 09/08/19 09/08/19 15:45 15:45 16:53 WBC Hgb Hct MCV 79.6 L D RDW 17.0 H Neutrophils # (Manual) 8.10 H Lymphocytes # (Manual) 0.75 L Metamyelocytes # (Man) 0.09 H Sodium 133 L Potassium Carbon Dioxide 21 L BUN 21 H Glucose 141 H POC Glucose (mg/dL) ALT 15 L Alkaline Phosphatase 158 H Urine Protein 1+ H Urine Blood Moderate H Ur Leukocyte Esterase Large H Urine WBC 29 H Urine WBC Clumps Few H Amorphous Sediment Moderate H Urine Bacteria Rare H Urine Mucus Rare H 09/08/19 09/09/19 09/09/19 21:23 04:43 04:47 WBC 12.9 H Hgb 11.2 L Hct 34.4 L MCV 79.7 L RDW 17.2 H Neutrophils # (Manual) Lymphocytes # (Manual) Metamyelocytes # (Man) Sodium 135 L Potassium 5.4 H Carbon Dioxide 21 L BUN 21 H Glucose POC Glucose (mg/dL) 129 H ALT Alkaline Phosphatase Urine Protein Urine Blood Ur Leukocyte Esterase Urine WBC Urine WBC Clumps Amorphous Sediment Urine Bacteria Urine Mucus - Diagnostic Findings Chest x-ray: report reviewed, image reviewed Additional studies: EKG reviewed Assessment and Plan Plan: Assessment: #1. Acute hypoxemic respiratory failure related to acute pneumonia likely related to aspiration. Chest x-ray showed right-sided perihilar infiltrates, left lower lobe infiltrate #2. Suspect chronic aspiration, despite nothing by mouth status the patient is being fed by a PEG tube #3. Urinary tract infection, urine culture is pending. Likely related to chronic Stein catheter #4. Severe multiple sclerosis with cognitive impairment, speech impairment, muscle atrophy, rigidity, chronic contractures, urinary and bowel incontinence gait impairment #5. History of recurrent urinary tract infections including with ESBL organisms and pseudomonal infections #6. Recent hospitalization in July for urinary tract infection with sepsis and urine culture was positive for ESBL E. coli #7. Chronic dysphagia, patient has a PEG tube #8. Multiple hospitalizations related to history of negative bacteremia, recurrent urinary tract infections #9. Poor baseline functioning status, patient is bedridden, and he resides in a long term Plan: Continue Zosyn and vancomycin, maintain aspiration precautions, continue nebulized bronchodilators, is unable to clear any secretions, he remains on high flow oxygen, will continue with supportive medical treatment, we spoke to the patient's a guardian who is his sister on the phone, and discussed the possibility of patient needing a tracheostomy down the road or possibly this admission for worsening pulmonary status, and endotracheal suctioning in view of patient's inability to clear his secretions, so discussed CODE STATUS, the patient's sister was absolutely opposed to it. She thought he needs to remain a full code, and she wants "everything done". We will await the results of the final urine culture, will change the Stein catheter. His chest x-ray has been reviewed showing infiltrates in his left lung consistent with pneumonia. Consult infectious disease. GI and DVT prophylaxis. Prognosis is extremely guarded. I performed a history & physical examination of the patient and discussed their management with my nurse practitioner, Naheed Pace. I reviewed the nurse practitioner's note and agree with the documented findings and plan of care. Lung sounds are positive for diffuse rhonchi throughout the lung prater. The findings and the impression was discussed with the patient. I attest to the documentation by the nurse practitioner. Time with Patient: Greater than 30
[2019-09-09] MEDS: PIPERACILLIN-TAZOBACTAM 3.375 GM in SODIUM CHLORIDE 0.9% 100 ML IVPB SCH ×2 (09:27→16:28)
[2019-09-09] MEDS: SODIUM CHLORIDE 0.9% 1,000 ML IV SCH (10:14)
--- NOTE | 2019-09-09 10:28 | CDI ---
Documentation Clarification Form Date: 09/09/2019 10:05:38 AM From: Negin Salgado RN CCDS Admit Date: 09/08/2019 4:46:00 PM Patient Name: Chris Marvin Visit Number: [id number] Discharge Date: ATTENTION: The Clinical Documentation Specialists (CDI) and [facility] Coding Staff appreciate your assistance in clarifying documentation. Please respond to the clarification below the line at the bottom and electronically sign. The CDI & [facility] Coding staff will review the response and follow-up if needed. Please note: Queries are made part of the Legal Health Record. If you have any questions, please contact the author of this message via ITS. Dr. Judi Carey Chronic contractures bedbound has a PEG tube is documented in the H & P History/Risk Factors: 59-year-old male presents to the ED via EMS from [facility] for hypoxia, high grade fever and suspicion of aspiration pneumonia Medical History DVT; Bedbound, Wojciech lift to w/c, MS, HTN, Contractures. Clinical Indicators: Treatment: Absorbent Under pad; Turn Q2; Pillow between knees; Check hourly; Aspiration Precautions; Oral Care with Antiseptic oral rinse; catheter care; Two Person maximum assist In order to capture the severity of condition, please render your opinion on the clinical significance, if any, above the above clinical indicators and treatment: * Functional Quadriplegia * Other (please specify) * Unable to determine (Last Revision: July 2018-New) MTDD
[2019-09-09 12:17] LABS: Glucose,Whole Blood 125 mg/dL (75-99)
--- NOTE | 2019-09-09 14:28 | P.PN ---
Subjective 59-year-old with history of monocytosis, bedbound secondary to functional quadriplegia is admitted for severe sepsis patient can use to have fevers patient is on broad-spectrum antibiotics patient is being treated for possible aspiration patient does have chronic aspirations. Patient is presently on vancomycin and Zosyn so far the cultures are negative. Review of systems: Unable to obtain at this time All inpatient medications were reviewed and appropriate changes in these medications as dictated in the interval history and assessment and plan. Objective - Vital Signs Vital signs: Vital Signs Temp 100.2 F H 09/09/19 09:00 Pulse 104 H 09/09/19 12:00 Resp 32 H 09/09/19 12:00 BP 146/70 09/09/19 12:00 Pulse Ox 94 L 09/09/19 12:00 Intake & Output 09/08/19 09/09/19 09/09/19 18:59 06:59 18:59 Intake Total 110 140 Output Total 1250 1600 Balance -1140 -1460 Weight 64.501 kg 71 kg Intake: IV 110 40 Sodium Chloride 0.9% 1, 110 40 000 ml @ 10 mls/hr IV . Q24H [facility] Rx#:[id number] Intake, IV Titration 100 Amount Piperacillin-Tazobactam 3 100 .375 gm In Sodium Chloride 0.9% 100 ml @ 25 mls/hr IVPB Q8HR [facility] Rx# :[id number] Output: Urine 1250 1600 Other: Voiding Method Diaper Indwelling Catheter Indwelling Catheter Indwelling Catheter # Bowel Movements 1 - Exam PHYSICAL EXAMINATION: GENERAL: The patient is alert and in mild respiratory distress on BiPAP HEENT: Pupils are round and equally reacting to light. EOMI. No scleral icterus. No conjunctival pallor. Normocephalic, atraumatic. No pharyngeal erythema. No thyromegaly. CARDIOVASCULAR: S1 and S2 present. No murmurs, rubs, or gallops. PULMONARY: A few bilateral rhonchi and crackles ABDOMEN: Soft, nontender, nondistended, normoactive bowel sounds. No palpable organomegaly. MUSCULOSKELETAL: No joint swelling or deformity. EXTREMITIES: No cyanosis, clubbing, or pedal edema. NEUROLOGICAL: Able to assess patient has chronic contractures significant muscle atrophy in all 4 limbs SKIN: No rashes. - Labs CBC & Chem 7: 09/09/19 04:47 09/09/19 04:43 Labs: Abnormal Lab Results - Last 24 Hours (Table) 09/08/19 09/08/19 09/08/19 Range/Units 15:45 15:45 16:53 WBC (3.8-10.6) k/uL Hgb (13.0-17.5) gm/dL Hct (39.0-53.0) % MCV 79.6 L D (80.0-100.0) fL RDW 17.0 H (11.5-15.5) % Neutrophils # (Manual) 8.10 H (1.3-7.7) k/uL Lymphocytes # (Manual) 0.75 L (1.0-4.8) k/uL Metamyelocytes # (Man) 0.09 H (0) k/uL Sodium 133 L (137-145) mmol/L Potassium (3.5-5.1) mmol/L Carbon Dioxide 21 L (22-30) mmol/L BUN 21 H (9-20) mg/dL Glucose 141 H (74-99) mg/dL POC Glucose (mg/dL) (75-99) mg/dL ALT 15 L (21-72) U/L Alkaline Phosphatase 158 H (38-126) U/L Urine Protein 1+ H (Negative) Urine Blood Moderate H (Negative) Ur Leukocyte Esterase Large H (Negative) Urine WBC 29 H (0-5) /hpf Urine WBC Clumps Few H (None) /hpf Amorphous Sediment Moderate H (None) /hpf Urine Bacteria Rare H (None) /hpf Urine Mucus Rare H (None) /hpf 09/08/19 09/09/19 09/09/19 Range/Units 21:23 04:43 04:47 WBC 12.9 H (3.8-10.6) k/uL Hgb 11.2 L (13.0-17.5) gm/dL Hct 34.4 L (39.0-53.0) % MCV 79.7 L (80.0-100.0) fL RDW 17.2 H (11.5-15.5) % Neutrophils # (Manual) (1.3-7.7) k/uL Lymphocytes # (Manual) (1.0-4.8) k/uL Metamyelocytes # (Man) (0) k/uL Sodium 135 L (137-145) mmol/L Potassium 5.4 H (3.5-5.1) mmol/L Carbon Dioxide 21 L (22-30) mmol/L BUN 21 H (9-20) mg/dL Glucose (74-99) mg/dL POC Glucose (mg/dL) 129 H (75-99) mg/dL ALT (21-72) U/L Alkaline Phosphatase (38-126) U/L Urine Protein (Negative) Urine Blood (Negative) Ur Leukocyte Esterase (Negative) Urine WBC (0-5) /hpf Urine WBC Clumps (None) /hpf Amorphous Sediment (None) /hpf Urine Bacteria (None) /hpf Urine Mucus (None) /hpf 09/09/19 Range/Units 12:05 WBC (3.8-10.6) k/uL Hgb (13.0-17.5) gm/dL Hct (39.0-53.0) % MCV (80.0-100.0) fL RDW (11.5-15.5) % Neutrophils # (Manual) (1.3-7.7) k/uL Lymphocytes # (Manual) (1.0-4.8) k/uL Metamyelocytes # (Man) (0) k/uL Sodium (137-145) mmol/L Potassium (3.5-5.1) mmol/L Carbon Dioxide (22-30) mmol/L BUN (9-20) mg/dL Glucose (74-99) mg/dL POC Glucose (mg/dL) 125 H (75-99) mg/dL ALT (21-72) U/L Alkaline Phosphatase (38-126) U/L Urine Protein (Negative) Urine Blood (Negative) Ur Leukocyte Esterase (Negative) Urine WBC (0-5) /hpf Urine WBC Clumps (None) /hpf Amorphous Sediment (None) /hpf Urine Bacteria (None) /hpf Urine Mucus (None) /hpf Microbiology - Last 24 Hours (Table) 09/08/19 16:53 Urine Culture - Preliminary Urine,Clean Catch Assessment and Plan Plan: -Severe sepsis: Secondary to possible pneumonia possibility of aspiration patient was started on broad-spectrum antibiotics including Zosyn and vancomycin IV fluids will be continued patient received the 2 L of IV fluids., Sputum cultures and blood cultures were obtained. -Chronic Stein catheter which was replaced the patient doesn't have any evidence of urinary tract infection at this time -Dysphagia does have a PEG tube dysphagias chronic -Hypertension -Multiple sclerosis chronic debility with chronic contractures supportive care for this -History of DVT in the past patient is presently not on any anti-correlation the past patient was on Coumadin. But he will he DVT prophylaxis.
[2019-09-09 18:12] LABS: Glucose,Whole Blood 153 mg/dL (75-99)
[2019-09-10 00:10] LABS: Glucose,Whole Blood 118 mg/dL (75-99)
--- NOTE | 2019-09-10 00:10 | P.CONS ---
History of Present Illness - Reason for Consult Consult date: 09/09/19 Pneumonia and UTI Requesting physician: Brenden Hawkins - Chief Complaint Hypoxia at the RI x 1 DAY - History of Present Illness Patient is a 59-year-old male with a past medical he significant for MS in this patient who did have a history of recurrent urinary tract infection and pneumonia patient has been sent to [facility] ER last night for evaluation of hypoxemia at the [facility] no further information as per ER sheet on arrival to the ER the patient did have a fever with a temperature of 103 F the patient was tachycardic and tachypneic initially white count was normal however this morning white count is up to 12.9 patient did have a positive UA with large oxide esterases and WBC clumps also he did have a chest x-ray which was removed right perihilar infiltrate patient has been started on vancomycin and Zosyn patient has been admitted to the ICU because of his hypoxemia infectious disease was consulted for further recommendation about antibiotic most information has been obtained from review the chart and talking nursing staff the patient currently unable to provide any history and no family member at the bedside. Review of Systems Positive point has been mentioned in HPI complete review could not be obtained because of underlying mental status Past Medical History Past Medical History: Deep Vein Thrombosis (DVT), GERD/Reflux, Hypertension, Musculoskeletal Disorder, Pneumonia, Renal Disease Additional Past Medical History / Comment(s): MS, cognitive impariment/ non verbal, NPO-peg tube,DVT-arm , IDC ,INCONT OF BOWEL. DY SARTHRIA/ANARTHRIA/DYSPHAGIA. BEDBOUND, RACHEL LIFT TO W/C, neurogenic bladder,m History of Any Multi-Drug Resistant Organisms: ESBL, MRSA Year Discovered:: 07/30/19 ESBL-E.coli; 10/21/17 MRSA MDRO Source:: Urine & Blood-ESBL; Urine-MRSA Additional Past Surgical History / Comment(s): PEG TUBE, HX OF GASTROSTOMY, Past Anesthesia/Blood Transfusion Reactions: Unable to Obtain Past Psychological History: Depression Additional Psychological History / Comment(s): PT RESIDES AT [facility] Smoking Status: Unknown if ever smoked Past Alcohol Use History: None Reported Past Drug Use History: None Reported - Past Family History Father Family Medical History: Unable to Obtain Additional Family Medical History / Comment(s): patient is nonverbal Mother Family Medical History: Unable to Obtain Additional Family Medical History / Comment(s): patient is nonverbal Medications and Allergies Home Medications Medication Instructions Recorded Confirmed Type Amantadine 50mg/5ml 100 mg PEG/G-TUBE Q12H 12/28/17 09/08/19 History Ascorbic Acid [Vitamin C] 250 mg PEG/G-TUBE DAILY 12/28/17 09/08/19 History Cholecalciferol [Vitamin D3 (25 1,000 unit PEG/G-TUBE DAILY 12/28/17 09/08/19 History Mcg = 1000 Iu)] Docusate Oral Soln [Colace Oral 200 mg PEG/G-TUBE BID 12/28/17 09/08/19 History Soln] Scopolamine 1.5MG/72Hr Patch 1 patch TRANSDERM Q72H 12/28/17 09/08/19 History [TransDerm Scop] guaiFENesin [guaiFENesin Oral 200 mg PEG/G-TUBE Q6H PRN 12/28/17 09/08/19 History Solution] Baclofen 5 mg PEG/G-TUBE TID 04/07/18 09/08/19 History Furosemide [Lasix] 20 mg PEG/G-TUBE DAILY 05/24/18 09/08/19 History Acetaminophen Oral Susp [Tylenol] 320 mg PEG/G-TUBE Q6H PRN 01/26/19 09/08/19 History Omeprazole Magnesium [PriLOSEC 20 mg PEG/G-TUBE DAILY 01/26/19 09/08/19 History Oral Susp] carBAMazepine [carBAMazepine Oral 300 mg PEG/G-TUBE Q8H 04/15/19 09/08/19 History Susp] Cranberry Fruit Extract [Cranberry] 500 mg PEG/G-TUBE Q12H 06/03/19 09/08/19 History Metoprolol Tartrate [Lopressor] 50 mg PEG/G-TUBE BID 07/29/19 09/08/19 History Ipratropium-Albuterol Nebulize 3 ml INHALATION RT-QID ampul.neb 08/04/19 09/08/19 Rx [Duoneb 0.5 mg-3 mg/3 ml Soln] Oxybutynin Chloride [Ditropan Oral 5 mg PEG/G-TUBE TID 09/08/19 09/08/19 History Soln] Polyethylene Glycol 3350 [Miralax] 17 gm PO HS 09/08/19 09/08/19 History Allergies Allergy/AdvReac Type Severity Reaction Status Date / Time meropenem [From Merrem] Allergy Rash/Hives Verified 09/08/19 19:11 Physical Exam Vitals: Vital Signs Temp Pulse Pulse Resp BP BP Pulse Ox 09/09/19 07:46 100 09/09/19 07:35 99 09/09/19 04:00 96 104 H 28 H 106/76 95 09/09/19 03:00 96 30 H 120/80 95 09/09/19 02:00 99 30 H 117/84 95 09/09/19 01:00 98.5 F 97 28 H 110/87 95 09/09/19 00:00 100 29 H 123/88 97 09/08/19 23:20 104 H 29 H 09/08/19 23:00 104 H 28 H 115/97 97 09/08/19 22:00 97.1 F L 104 H 27 H 114/80 96 09/08/19 21:46 97.1 F L 106 H 29 H 114/80 94 L 09/08/19 21:00 97.8 F 112 H 30 H 115/83 94 L 09/08/19 20:10 117 H 09/08/19 20:00 115 H 29 H 123/98 94 L 09/08/19 19:57 114 H 09/08/19 19:00 128 H 23 119/88 98 09/08/19 18:00 137 H 30 H 157/121 83 L 09/08/19 17:45 102 F H 142 H 30 H 157/121 90 L 09/08/19 17:28 144 H 30 H 177/116 89 L 09/08/19 17:00 131 H 29 H 152/106 09/08/19 16:30 103.0 F H 140 H 32 H 136/99 93 L 09/08/19 16:00 140 H 30 H 158/116 89 L 09/08/19 15:54 140 H 140 H 30 H 158/116 93 L 09/08/19 15:36 93 L 09/08/19 15:35 139 H 31 H 144/100 95 Intake and Output 09/08/19 09/09/19 09/09/19 22:59 06:59 14:59 Intake Total 110 Output Total 1250 Balance -1140 Intake: IV 110 Sodium Chloride 0.9% 1, 110 000 ml @ 10 mls/hr IV . Q24H [facility] Rx#:[id number] Output: Urine 1250 Other: Voiding Method Diaper Indwelling Catheter Indwelling Catheter # Bowel Movements 1 Weight 64.501 kg 71 kg GENERAL DESCRIPTION: Middle-aged male lying in bed, no distress. No tachypnea or accessory muscle of respiration use. HEENT: Shows Pallor , no scleral icterus. Oral mucous membrane is dry. NECK: Trachea central, no thyromegaly. LUNGS: Unlabored breathing. Coarse breath sounds on the right side. No wheeze or crackle. HEART: S1, S2, regular rate and rhythm. ABDOMEN: Soft, no tenderness , guarding or rigidity EXTREMITIES: No edema of feet. SKIN: No rash, no masses palpable. NEUROLOGICAL: The patient is sleepy lethargic and unable to determined orientation Results CBC & Chem 7: 09/09/19 04:47 09/09/19 04:43 Labs: Abnormal Lab Results - Last 24 Hours (Table) 09/08/19 09/08/19 09/08/19 Range/Units 15:45 15:45 16:53 WBC (3.8-10.6) k/uL Hgb (13.0-17.5) gm/dL Hct (39.0-53.0) % MCV 79.6 L D (80.0-100.0) fL RDW 17.0 H (11.5-15.5) % Neutrophils # (Manual) 8.10 H (1.3-7.7) k/uL Lymphocytes # (Manual) 0.75 L (1.0-4.8) k/uL Metamyelocytes # (Man) 0.09 H (0) k/uL Sodium 133 L (137-145) mmol/L Potassium (3.5-5.1) mmol/L Carbon Dioxide 21 L (22-30) mmol/L BUN 21 H (9-20) mg/dL Glucose 141 H (74-99) mg/dL POC Glucose (mg/dL) (75-99) mg/dL ALT 15 L (21-72) U/L Alkaline Phosphatase 158 H (38-126) U/L Urine Protein 1+ H (Negative) Urine Blood Moderate H (Negative) Ur Leukocyte Esterase Large H (Negative) Urine WBC 29 H (0-5) /hpf Urine WBC Clumps Few H (None) /hpf Amorphous Sediment Moderate H (None) /hpf Urine Bacteria Rare H (None) /hpf Urine Mucus Rare H (None) /hpf 09/08/19 09/09/19 09/09/19 Range/Units 21:23 04:43 04:47 WBC 12.9 H (3.8-10.6) k/uL Hgb 11.2 L (13.0-17.5) gm/dL Hct 34.4 L (39.0-53.0) % MCV 79.7 L (80.0-100.0) fL RDW 17.2 H (11.5-15.5) % Neutrophils # (Manual) (1.3-7.7) k/uL Lymphocytes # (Manual) (1.0-4.8) k/uL Metamyelocytes # (Man) (0) k/uL Sodium 135 L (137-145) mmol/L Potassium 5.4 H (3.5-5.1) mmol/L Carbon Dioxide 21 L (22-30) mmol/L BUN 21 H (9-20) mg/dL Glucose (74-99) mg/dL POC Glucose (mg/dL) 129 H (75-99) mg/dL ALT (21-72) U/L Alkaline Phosphatase (38-126) U/L Urine Protein (Negative) Urine Blood (Negative) Ur Leukocyte Esterase (Negative) Urine WBC (0-5) /hpf Urine WBC Clumps (None) /hpf Amorphous Sediment (None) /hpf Urine Bacteria (None) /hpf Urine Mucus (None) /hpf Microbiology - Last 24 Hours (Table) 09/08/19 16:53 Urine Culture - Preliminary Urine,Clean Catch Assessment and Plan Assessment: 1-patient admitted hospital with sepsis in this patient who did have a fever tachycardia elevated white count source is likely pneumonia and the patient did have a congested cough and perihilar infiltrate on the right side likely an aspiration pneumonia in this patient who is [facility] resident and previous history of ESBL could be a gram-negative pathogen, patient also have a significantly positive UA underlying UTI not entirely excluded. (1) Pneumonia Current Visit: Yes Status: Acute Code(s): J18.9 - PNEUMONIA, UNSPECIFIED ORGANISM SNOMED Code(s): 941311465 (2) Aspiration pneumonia Current Visit: No Status: Acute Code(s): J69.0 - PNEUMONITIS DUE TO INHALATION OF FOOD AND VOMIT SNOMED Code(s): 559699362 (3) Sepsis Current Visit: No Status: Acute Code(s): A41.9 - SEPSIS, UNSPECIFIED ORGANISM SNOMED Code(s): 89419438 (4) UTI (urinary tract infection) Current Visit: No Status: Acute Code(s): N39.0 - URINARY TRACT INFECTION, SITE NOT SPECIFIED SNOMED Code(s): 99923184 Plan: 1-vancomycin pharmacy to dose her with a target trough of 15 while watching her kidney function and Vanco trough closely. 2-we will try to obtain a sputum for Gram stain and culture 3-Stein catheter has been changed 4-discontinue Zosyn and add Invanz 1 g daily to cover for possible ESBL pathogen We will follow on clinical condition and cultures to further adjust medication if needed Thank you for this consultation we will follow the patient along with you Time with Patient: Greater than 30
[2019-09-10] MEDS: PIPERACILLIN-TAZOBACTAM 3.375 GM in SODIUM CHLORIDE 0.9% 100 ML IVPB SCH (00:15)
[2019-09-10] MEDS: ACETAMINOPHEN ORAL SUSP 160 MG/5 ML CUP PEG/G-TUBE PRN (00:34)
[2019-09-10] MEDS: SODIUM CHLORIDE 0.9% 1,000 ML IV SCH (04:47)
[2019-09-10] MEDS ORDERED: VANCOMYCIN TROUGH DUE 1 EACH MISC MISCELLANE ONE (05:00)
[2019-09-10 05:21] LABS: Anisocytosis Slight; HCT 32.9 % (39.0-53.0); HGB 10.2 gm/dL (13.0-17.5); Hypochromasia Moderate; MCH 25.6 pg (25.0-35.0); MCV 82.6 fL (80.0-100.0); Mean Platelet Volume 7.7; Platelet Count 325 k/uL (150-450); RBC 3.99 m/uL (4.30-5.90); RDW 17.1 % (11.5-15.5); WBC 8.5 k/uL (3.8-10.6)
[2019-09-10 05:23] LABS: African American GFR (CKD) >90 (>60 ml/min/1.73 sqM); Anion Gap 9 mmol/L; Blood Urea Nitrogen 17 mg/dL (9-20); Calcium 8.7 mg/dL (8.4-10.2); Carbon Dioxide 18 mmol/L (22-30); Chloride 112 mmol/L (98-107); Glucose 110 mg/dL (74-99); Non-African American GFR(CKD) >90 (>60 ml/min/1.73 sqM); Potassium 3.4 mmol/L (3.5-5.1); Sodium 139 mmol/L (137-145)
[2019-09-10] MEDS ORDERED: Potassium Replacement Protocol 1 EACH MISC MISCELLANE PRN (05:31)
[2019-09-10] MEDS: VANCOMYCIN 1,000 MG in SODIUM CHLORIDE 0.9% 250 ML IVPB SCH ×2 (05:55→17:33)
[2019-09-10] MEDS: POTASSIUM BICARBONATE/CIT AC 20 MEQ TABLET.EFF NG-TUBE SCH ×2 (05:55→07:03)
[2019-09-10 06:04] LABS: Band Neutrophils % 48 %; Lymphocytes # (M) 1.02 k/uL (1.0-4.8); Monocytes # (M) 0.26 k/uL (0-1.0); Neutrophils % (M) 38 %; Nucleated Red Blood Cells 0 /100 WBC (0-0); Total Cells Counted 200
[2019-09-10 06:06] LABS: Polychromasia Present
[2019-09-10 06:09] LABS: Large Platelets Present
[2019-09-10 06:17] LABS: Glucose,Whole Blood 110 mg/dL (75-99)
--- NOTE | 2019-09-10 07:20 | XR ---
EXAMINATION TYPE: XR chest 1V portable DATE OF EXAM: 09/10/2019 COMPARISON: 09/09/2019 HISTORY: Pneumonia. Fluid overload. TECHNIQUE: Single frontal view of the chest is obtained. FINDINGS: Right hemithorax volume loss is new. Interstitial edema has worsened. More confluent right -sided opacities are likely on the basis of atelectasis given hemidiaphragm elevation. Cardiomediasti nal silhouette is stable from the prior. Diffuse osseous demineralization is seen. Old healed left up per lateral rib fractures. IMPRESSION: Worsening now moderate interstitial pulmonary edema in the more confluent right-sided op acities likely related to atelectasis given the new right hemithorax volume loss.
[2019-09-10] MEDS: IPRATROPIUM-ALBUTEROL 3 ML NEB INHALATION SCH ×4 (07:59→20:08)
[2019-09-10] MEDS: OXYBUTYNIN CHLORIDE 5 MG TAB PEG/G-TUBE SCH ×3 (08:31→20:32)
[2019-09-10] MEDS: PANTOPRAZOLE SODIUM 40 MG GRANULE PKT PEG/G-TUBE SCH (08:31)
[2019-09-10] MEDS: HEPARIN SODIUM,PORCINE 5,000 UNIT/ML 1 ML VIAL SQ SCH ×2 (08:31→20:32)
[2019-09-10] MEDS: BACLOFEN 10 MG TAB PEG/G-TUBE SCH ×3 (08:31→20:32)
[2019-09-10] MEDS: AMANTADINE HCL 100 MG/10 ML CUP PO SCH ×2 (08:31→20:32)
[2019-09-10] MEDS: ASCORBIC ACID 500 MG TAB PEG/G-TUBE SCH (08:31)
[2019-09-10] MEDS: CHOLECALCIFEROL 1,000 UNIT TAB PEG/G-TUBE SCH (08:32)
[2019-09-10] MEDS: METOPROLOL TARTRATE 50 MG TAB PEG/G-TUBE SCH ×2 (08:32→20:32)
[2019-09-10] MEDS: ERTAPENEM 1 GM in SODIUM CHLORIDE 0.9% 50 ML IVPB SCH (08:33)
--- NOTE | 2019-09-10 09:23 | P.PN ---
Subjective Progress Note Date: 09/10/19 Principal diagnosis: Aspiration pneumonia This is 59-year-old white male patient of resident of a local skilled nursing, with the history of severe MS, poor baseline functioning status, chronic contractures of lower extremities, nonambulatory, patient is essentially bedridden and n onverbal. We have seen patient in consultation during his previous admissions for complications related to sepsis secondary to recurrent urinary tract infections related to Pseudomonas, gram-negative bacteremia, ESBL producing E. coli in the urine. Most recently in July 2019 she was hospitalized for gram- negative sepsis with urine cultures positive for ESBL producing E. coli. Patient was treated, and improved, discharged back to the skilled nursing on 08/2019, yesterday on 09/08/2019 patient presents to the hospital per EMS evaluation of hypoxemia, less of breath, and audible congestion, he was placed on the 100% nonrebreather, pulse ox is 95%, she was febrile on admission, with a temp of 103.0F. Chest x-ray was taken showing mild right-sided perihilar infiltrate, and mild left lower lobe pneumonia that appears to be new since his last admission and his last chest x-ray on 07/31/2019. Admission lab work showed a white blood cell count of 9.4, hemoglobin of 13.8, sodium of 133, p otassium is 5.0, chloride is 101, CO2 is 21, B1 is 21 creatinine 0.71, troponin was negative 1 is 0.016, urinalysis was positive for moderate amount of blood, large amount of leuks, white blood cells in clumps, rare bacteria, culture is pending, influenza screen was negative. Patient was started on a combination of Zosyn and vancomycin, breathing treatments, he remains nothing by mouth, he is being fed via the PEG tube. He seen this morning in the intensive care unit, remains on a percent nonrebreather mask, his cough is very weak, he is not able to clear secretions, and he is audibly congested. Given a dose of IV Lasix this morning for chest congestion, diuresed, however not sounding significantly better. On 09/10/2017 patient seen in follow-up in the intensive care unit, he is awake, appears less dyspneic on today's exam, FiO2 is down to 12 L per high flow nasal cannula, oxygen 98%, hemodynamically stable, tachypneic shallow breaths, but no acute distress, low-grade fevers, sinus tachycardia on the monitor. Still congested, although sounding better on today's exam, remains on antibiotics, she was switched from Zosyn to Invanz, continues on vancomycin, urine culture is positive for gram-negative bacilli, final cultures pending, blood cultures are positive for staph aureus. Today's labs have been reviewed including cell count 8.5, hemoglobin of 10.2, platelet count is 325, sodium is 139, potassium 3.4, chloride is 112, CO2 is 18, BUN 17 creatinine 0.84. Registered dietitian has been consulted for evaluation of nutritional needs, and we anticipate starting tube feedings today, the continuous feeding on the feeding pump. His chest x- ray showed worsening new moderate interstitial pulmonary edema and the more confluent right-sided opacities. Objective - Vital Signs Vital signs: Vital Signs Temp 99.8 F H 09/10/19 08:00 Pulse 107 H 09/10/19 08:13 Resp 26 H 09/10/19 08:00 BP 142/82 09/10/19 08:00 Pulse Ox 98 09/10/19 08:00 Intake & Output 09/09/19 09/10/19 09/10/19 18:59 06:59 18:59 Intake Total 240 520 Output Total 2200 430 170 Balance -1960 90 -170 Weight 72.3 kg Intake: IV 40 170 Sodium Chloride 0.9% 1, 40 170 000 ml @ 10 mls/hr IV . Q24H [facility] Rx#:[id number] Intake, IV Titration 200 350 Amount Piperacillin-Tazobactam 3 200 100 .375 gm In Sodium Chloride 0.9% 100 ml @ 25 mls/hr IVPB Q8HR [facility] Rx# :[id number] Vancomycin 1,000 mg In 250 Sodium Chloride 0.9% 250 ml @ 125 mls/hr IVPB Q12H [facility] Rx#:[id number] Output: Urine 2200 430 170 Other: Voiding Method Indwelling Catheter Indwelling Catheter # Bowel Movements 1 - Exam GENERAL EXAM: Alert, nonverbal, 59-year-old white male, cachectic currently on the 12 L per high flow nasal cannula, with a pulse ox of 98%, audible upper airway congestion and, patient has a very weak cough HEAD: Normocephalic/atraumatic. EYES: Normal reaction of pupils, equal size. Conjunctiva pink, sclera white. NOSE: Clear with pink turbinates. THROAT: No erythema or exudates. NECK: No masses, no JVD, no thyroid enlargement, no adenopathy. CHEST: No chest wall deformity. Symmetrical expansion. LUNGS: Equal air entry with diffuse rhonchi throughout CVS: Regular rate and rhythm, normal S1 and S2, no gallops, no murmurs, no rubs ABDOMEN: Soft, nontender. No hepatosplenomegaly, normal bowel sounds, no guarding or rigidity. PEG tube present in the left upper abdomen, feedings are on hold right now EXTREMITIES: No clubbing, no edema, no cyanosis, 2+ pulses and upper and lower extremities. Chronic contractures involving upper and lower extremities, muscle weakness and overall rigidity MUSCULOSKELETAL: Chronic contractures, muscle wasting SPINE: No scoliosis or deformity SKIN: No rashes CENTRAL NERVOUS SYSTEM: Alert, unable to assess orientation, patient is nonverbal, he is able to nod his head yes to simple questions - Labs CBC & Chem 7: 09/10/19 04:51 09/10/19 04:58 Labs: Abnormal Lab Results - Last 24 Hours (Table) 09/09/19 09/09/19 09/09/19 Range/Units 12:05 18:01 23:59 RBC (4.30-5.90) m/uL Hgb (13.0-17.5) gm/dL Hct (39.0-53.0) % RDW (11.5-15.5) % Potassium (3.5-5.1) mmol/L Chloride (98-107) mmol/L Carbon Dioxide (22-30) mmol/L Glucose (74-99) mg/dL POC Glucose (mg/dL) 125 H 153 H 118 H (75-99) mg/dL 09/10/19 09/10/19 09/10/19 Range/Units 04:51 04:58 06:06 RBC 3.99 L (4.30-5.90) m/uL Hgb 10.2 L (13.0-17.5) gm/dL Hct 32.9 L (39.0-53.0) % RDW 17.1 H (11.5-15.5) % Potassium 3.4 L (3.5-5.1) mmol/L Chloride 112 H (98-107) mmol/L Carbon Dioxide 18 L (22-30) mmol/L Glucose 110 H (74-99) mg/dL POC Glucose (mg/dL) 110 H (75-99) mg/dL Microbiology - Last 24 Hours (Table) 09/08/19 16:35 Blood Culture Gram Stain - Preliminary Blood Blood Culture - Preliminary Staphylococcus aureus 09/08/19 16:07 Blood Culture Gram Stain - Preliminary Blood 09/08/19 16:53 Urine Culture - Preliminary Urine,Clean Catch Gram Neg Bacilli 09/08/19 16:07 Blood Culture - Final Blood 09/08/19 16:35 Blood Culture - Final Blood Assessment and Plan Plan: Assessment: #1. Acute hypoxemic respiratory failure related to acute pneumonia likely related to aspiration. Chest x-ray showed right-sided perihilar infiltrates, left lower lobe infiltrate #2. Suspect chronic aspiration, despite nothing by mouth status the patient is being fed by a PEG tube #3. Urinary tract infection, urine culture is pending. Likely related to chronic Stein catheter #4. Severe multiple sclerosis with cognitive impairment, speech impairment, muscle atrophy, rigidity, chronic contractures, urinary and bowel incontinence gait impairment #5. History of recurrent urinary tract infections including with ESBL organisms and pseudomonal infections #6. Recent hospitalization in July for urinary tract infection with sepsis and urine culture was positive for ESBL E. coli #7. Chronic dysphagia, patient has a PEG tube #8. Multiple hospitalizations related to history of negative bacteremia, recurrent urinary tract infections #9. Poor baseline functioning status, patient is bedridden, and he resides in a skilled nursing Plan: Continue antibiotics per ID service recommendations, await final results of the urine and blood culture, continue nebulized bronchodilators, maintain aspiration precautions, GI and DVT prophylaxis, weaning FiO2, consult registered dietitian for tube feed recommendations, and patient will need continuous tube feedings instead of bolus feedings. We'll continue to follow, overall prognosis extre yulissa guarded. I performed a history & physical examination of the patient and discussed their management with my nurse practitioner, Naheed Pace. I reviewed the nurse practitioner's note and agree with the documented findings and plan of care. Lung sounds are positive for diffuse rhonchi throughout the lung prater. The findings and the impression was discussed with the patient. I attest to the documentation by the nurse practitioner. Time with Patient: Less than 30
[2019-09-10 12:24] LABS: Glucose,Whole Blood 118 mg/dL (75-99)
--- NOTE | 2019-09-10 13:56 | P.PN ---
Subjective Progress Note Date: 09/10/19 Principal diagnosis: Aspiration pneumonia Patient was seen and examined. Nonverbal and noncommunicative. Currently on high flow nasal cannula at 12 L saturating at to high 90s. Low-grade fever of 99.8. Tachycardic, blood pressure remained stable. Hemoglobin 10.2. Potassium 3.4, replaced, repeat within normal limits. Chest x-ray this morning shows worsening moderate interstitial pulmonary edema with right-sided opacities related to atelectasis. Currently on ertapenem and vancomycin. Objective - Vital Signs Vital signs: Vital Signs Temp 99.8 F H 09/10/19 08:00 Pulse 94 09/10/19 11:49 Resp 26 H 09/10/19 08:00 BP 142/82 09/10/19 08:00 Pulse Ox 98 09/10/19 08:00 Intake & Output 09/09/19 09/10/19 09/10/19 18:59 06:59 18:59 Intake Total 240 520 Output Total 2200 430 170 Balance -1959 90 -170 Weight 72.3 kg 72.3 kg Intake: IV 40 170 Sodium Chloride 0.9% 1, 40 170 000 ml @ 10 mls/hr IV . Q24H [facility] Rx#:[id number] Intake, IV Titration 200 350 Amount Piperacillin-Tazobactam 3 200 100 .375 gm In Sodium Chloride 0.9% 100 ml @ 25 mls/hr IVPB Q8HR [facility] Rx# :[id number] Vancomycin 1,000 mg In 250 Sodium Chloride 0.9% 250 ml @ 125 mls/hr IVPB Q12H [facility] Rx#:[id number] Output: Urine 2200 430 170 Other: Voiding Method Indwelling Catheter Indwelling Catheter # Bowel Movements 1 - Exam General: [non toxic], [cachectic], [appears at stated age], [12 L high flow nasal cannula] Derm: [warm], [dry] Head: [atraumatic], [normocephalic], [symmetric] Eyes: [EOMI], [no lid lag], [anicteric sclera] Mouth: [no lip lesion], [mucus membranes moist] Cardiovascular: [S1S2 reg], [tachycardic], [positive DP pulse bilateral], Lungs: [Coarse breath sounds bilateral], [no rhonchi, no rales] , [no accessory muscle use] Abdominal: [soft], [ nontender to palpation], [no guarding], [no appreciable organomegaly], [PEG tube left upper quadrant] Ext: [no gross muscle atrophy], [no edema], [bilateral upper and lower extremity contractures] Neuro: [Unable to assess] Psych: [Unable to determine] - Labs CBC & Chem 7: 09/10/19 04:51 09/10/19 08:54 Labs: Abnormal Lab Results - Last 24 Hours (Table) 09/09/19 09/09/19 09/10/19 Range/Units 18:01 23:59 04:51 RBC 3.99 L (4.30-5.90) m/uL Hgb 10.2 L (13.0-17.5) gm/dL Hct 32.9 L (39.0-53.0) % RDW 17.1 H (11.5-15.5) % Potassium (3.5-5.1) mmol/L Chloride (98-107) mmol/L Carbon Dioxide (22-30) mmol/L Glucose (74-99) mg/dL POC Glucose (mg/dL) 153 H 118 H (75-99) mg/dL 09/10/19 09/10/19 09/10/19 Range/Units 04:58 06:06 12:12 RBC (4.30-5.90) m/uL Hgb (13.0-17.5) gm/dL Hct (39.0-53.0) % RDW (11.5-15.5) % Potassium 3.4 L (3.5-5.1) mmol/L Chloride 112 H (98-107) mmol/L Carbon Dioxide 18 L (22-30) mmol/L Glucose 110 H (74-99) mg/dL POC Glucose (mg/dL) 110 H 118 H (75-99) mg/dL Microbiology - Last 24 Hours (Table) 09/08/19 16:35 Blood Culture Gram Stain - Preliminary Blood Blood Culture - Preliminary Staphylococcus aureus 09/08/19 16:07 Blood Culture Gram Stain - Preliminary Blood 09/08/19 16:53 Urine Culture - Preliminary Urine,Clean Catch Gram Neg Bacilli 09/08/19 16:07 Blood Culture - Final Blood 09/08/19 16:35 Blood Culture - Final Blood Assessment and Plan Assessment: Sepsis related to aspiration pneumonia Acute hypoxic respiratory failure due to above Urinary tract infection with history of ESBL and pseudomonal infection related to chronic Stein catheter Hypokalemia Multiple sclerosis with chronic debility and contractures History of DVT Hypertension Patient initially met sepsis criteria. T-max 103 F, heart rate in the 140s, tachypnic on admission. Leukocytosis of 12.9 on September 09 which is resolved now. Lactic acid negative. Influenza negative. Blood culture positive staph aureus. Chest x-ray on admission showing right-sided infiltrate, left lower lobe pneumonia. Plans: Continue vancomycin and ertapenem pending cultures. Robitussin as needed for cough. DuoNeb scheduled for shortness of breath and wheezing. Scopolamine patch for secretions. Telemetry monitoring. Follow blood culture final. Follow sputum culture. Follow ID and pulmonology recommendations. Plans: Management as above. History of ESBL. Urinalysis shows large leukocyte esterase, urine culture gram-n egative bacilli. Plans: Continue IV antibiotics as above. Follow urine culture. Potassium 3.4. Plans: Replace via protocol. Repeat BMP. Family adamant about full CODE STATUS. Plans: Continue amantadine. Continue supportive treatment. Heparin for DVT prophylaxis. Social work consulted for r eturn back to [facility]. Plans: DVT prophylaxis. BP 150/91. Plans: Continue metoprolol. Monitor vitals, adjust medications as necessary. [Patient admitted for sepsis related to aspiration pneumonia. Also has UTI with history of ESBL and pseudomonal/E. coli infections. Apparently, mentation im proved though patient nonverbal and noncommunicative. Prognosis extremely guarded.]
[2019-09-10 18:15] LABS: Glucose,Whole Blood 93 mg/dL (75-99)
--- NOTE | 2019-09-10 22:10 | PN ---
PROGRESS NOTE DATE OF SERVICE: 09/10/2019 REASON FOR FOLLOWUP: Aspiration pneumonia, UTI and bacteremia. INTERVAL HISTORY: The patient's overall fever pattern has improved with a low-grade fever of 99.4 today. The patient is hemodynamically stable, not requiring any pressor support. FiO2 is currently down to high-flow nasal oxygen non-rebreather. No vomiting or diarrhea reported by the nursing staff. Patient is unable to provide any history. PHYSICAL EXAMINATION: Blood pressure 158/85 with a pulse of 111, temperature of 99.8. He is 98% on 12 L high- flow oxygen. General description is a middle-aged male lying in bed in no distress. RESPIRATORY SYSTEM: Unlabored breathing. Coarse breath sounds bilaterally. No wheeze. HEART: S1, S2. Regular rate and rhythm. ABDOMEN: Soft. No tenderness. EXTREMITIES: No edema of the feet. LABS: Hemoglobin is 10.2, white count of 8.5. Creatinine is 0.84. Blood culture with Staph aureus. Urine is showing a Gram-negative. DIAGNOSTIC IMPRESSION AND PLAN: Patient admitted to hospital with sepsis. Source is multifactorial in this patient with a component of aspiration pneumonia as well as a UTI, though initial UA was obtained from a Stein catheter the patient had for a couple of weeks. Repeat UA and culture has been ordered. The patient also has evidence of Staph aureus bacteremia with sensitivities pending. The patient is covered with Invanz and vancomycin; to continue while waiting for the culture to finalize. Continue supportive care. MMODL / IJN: [id number] /
[2019-09-10] MEDS ORDERED: hydrALAZINE HCL 50 MG TAB PEG/G-TUBE STA (23:21)
[2019-09-11 00:19] LABS: Glucose,Whole Blood 111 mg/dL (75-99)
[2019-09-11] MEDS: SODIUM CHLORIDE 0.9% 1,000 ML IV SCH (03:15)
[2019-09-11 05:39] LABS: Anisocytosis Slight; Basophils % (A) 0 %; Eosinophils # (A) 0.1 k/uL (0-0.7); Eosinophils % (A) 1 %; HCT 34.8 % (39.0-53.0); HGB 10.8 gm/dL (13.0-17.5); Hypochromasia Moderate; Lymphocytes # (A) 0.7 k/uL (1.0-4.8); Lymphocytes % (A) 5 %; MCH 25.5 pg (25.0-35.0); MCV 82.3 fL (80.0-100.0); Mean Platelet Volume 8.1; Monocytes # (A) 0.4 k/uL (0-1.0); Monocytes % (A) 3 %; Neutrophils # (A) 12.1 k/uL (1.3-7.7); Neutrophils % (A) 90 %; Platelet Count 372 k/uL (150-450); RBC 4.23 m/uL (4.30-5.90); RDW 16.9 % (11.5-15.5); WBC 13.5 k/uL (3.8-10.6)
[2019-09-11 06:10] LABS: African American GFR (CKD) >90 (>60 ml/min/1.73 sqM); Anion Gap 11 mmol/L; Blood Urea Nitrogen 15 mg/dL (9-20); Carbon Dioxide 21 mmol/L (22-30); Chloride 112 mmol/L (98-107); Glucose 120 mg/dL (74-99); Non-African American GFR(CKD) >90 (>60 ml/min/1.73 sqM); Potassium 3.3 mmol/L (3.5-5.1); Sodium 144 mmol/L (137-145)
[2019-09-11 06:16] LABS: Glucose,Whole Blood 120 mg/dL (75-99)
[2019-09-11] MEDS: VANCOMYCIN 1,000 MG in SODIUM CHLORIDE 0.9% 250 ML IVPB SCH ×2 (06:26→18:04)
[2019-09-11] MEDS ORDERED: Potassium Replacement Protocol 1 EACH MISC MISCELLANE PRN (06:27)
[2019-09-11] MEDS: POTASSIUM BICARBONATE/CIT AC 20 MEQ TABLET.EFF NG-TUBE SCH ×2 (06:43→09:11)
[2019-09-11] MEDS: IPRATROPIUM-ALBUTEROL 3 ML NEB INHALATION SCH ×4 (07:30→20:08)
--- NOTE | 2019-09-11 07:30 | XR ---
EXAMINATION TYPE: XR chest 1V portable DATE OF EXAM: 09/11/2019 HISTORY: Shortness of breath. COMPARISON: 09/10/2019 TECHNIQUE: Single view of the chest is submitted. FINDINGS: Demonstrated are scattered senescent parenchymal change. Scattered airspace infiltrates persist without significant change. The heart is stable. Hilar and mediastinal structures are within normal limits. Degenerative changes are seen of the dorsal spine. IMPRESSION: 1. Stable chest
--- NOTE | 2019-09-11 08:55 | P.PN ---
Subjective Progress Note Date: 09/11/19 Principal diagnosis: Aspiration pneumonia This is 59-year-old white male patient of [facility] a local [facility], with the history of severe MS, poor baseline functioning status, chronic contractures of lower extremities, nonambulatory, patient is essentially bedridden and n onverbal. We have seen patient in consultation during his previous admissions for complications related to sepsis secondary to recurrent urinary tract infections related to Pseudomonas, gram-negative bacteremia, ESBL producing E. coli in the urine. Most recently in July 2019 she was hospitalized for gram- negative sepsis with urine cultures positive for ESBL producing E. coli. Patient was treated, and improved, [facility], yesterday on 09/08/2019 patient presents to the hospital per EMS evaluation of hypoxemia, less of breath, and audible congestion, he was placed on the 100% nonrebreather, pulse ox is 95%, she was febrile on admission, with a temp of 103.0F. Chest x-ray was taken showing mild right-sided perihilar infiltrate, and mild left lower lobe pneumonia that appears to be new since his last admission and his last chest x-ray on 07/31/2019. Admission lab work showed a white blood cell count of 9.4, hemoglobin of 13.8, sodium of 133, p otassium is 5.0, chloride is 101, CO2 is 21, B1 is 21 creatinine 0.71, troponin was negative 1 is 0.016, urinalysis was positive for moderate amount of blood, large amount of leuks, white blood cells in clumps, rare bacteria, culture is pending, influenza screen was negative. Patient was started on a combination of Zosyn and vancomycin, breathing treatments, he remains nothing by mouth, he is being fed via the PEG tube. He seen this morning in the intensive care unit, remains on a percent nonrebreather mask, his cough is very weak, he is not able to clear secretions, and he is audibly congested. Given a dose of IV Lasix this morning for chest congestion, diuresed, however not sounding significantly better. On 09/10/2017 patient seen in follow-up in the intensive care unit, he is awake, appears less dyspneic on today's exam, FiO2 is down to 12 L per high flow nasal cannula, oxygen 98%, hemodynamically stable, tachypneic shallow breaths, but no acute distress, low-grade fevers, sinus tachycardia on the monitor. Still congested, although sounding better on today's exam, remains on antibiotics, she was switched from Zosyn to Invanz, continues on vancomycin, urine culture is positive for gram-negative bacilli, final cultures pending, blood cultures are positive for staph aureus. Today's labs have been reviewed including cell count 8.5, hemoglobin of 10.2, platelet count is 325, sodium is 139, potassium 3.4, chloride is 112, CO2 is 18, BUN 17 creatinine 0.84. Registered dietitian has been consulted for evaluation of nutritional needs, and we anticipate starting tube feedings today, the continuous feeding on the feeding pump. His chest x- ray showed worsening new moderate interstitial pulmonary edema and the more confluent right-sided opacities. On 09/11/2019 patient seen in follow-up in the intensive care unit, patient is alert, he is nonverbal, she follows simple command, his cough is very weak, and patient is still audibly congested, and not able to bring up any phlegm, remains on high flow oxygen, currently at 12 L with a pulse ox of 97%, slightly tachycar dic and the heart rate is ranging from 105-112 BPM, he is afebrile, hemodynamically patient is stable, tube feedings have been resumed, and she is on continuous tube feedings via feeding pump, with a viral AF at a rate is 65 ML per hour, with standard water flushes. Patient remains on antibiotics with Invanz and vancomycin, urine culture revealed 2 different gram-negative organisms with Proteus mirabilis and ESBL E. coli, both susceptible to ertapenem. Blood culture from 09/08/2019 was positive for Staphylococcus aureus, although blood cultures have been done, and so far are negative, his labs have been reviewed, showing white blood cell count of 13.5, hemoglobin of 10.8, sodium is 144, potassium is 3.3, chloride is 112, CO2 is 21, BUN is 15, creatinine 0.67. Patient has been having intermittent low-grade fevers, last one last night at 2000, with a temp of 99.8F, afebrile this morning. Objective - Vital Signs Vital signs: Vital Signs Temp 98 F 09/11/19 04:00 Pulse 112 H 09/11/19 07:46 Resp 30 H 09/11/19 04:00 BP 153/90 09/11/19 04:00 Pulse Ox 97 09/11/19 04:00 Intake & Output 09/10/19 09/11/19 09/11/19 18:59 06:59 18:59 Output Total 360 Balance -360 Weight 70.9 kg 69 kg Output: Urine 360 Other: Voiding Method Indwelling Catheter Indwelling Catheter # Bowel Movements 1 - Exam GENERAL EXAM: Alert, nonverbal, 59-year-old white male, cachectic currently on the 12 L per high flow nasal cannula, with a pulse ox of 98%, audible upper airway congestion and, patient has a very weak cough HEAD: Normocephalic/atraumatic. EYES: Normal reaction of pupils, equal size. Conjunctiva pink, sclera white. NOSE: Clear with pink turbinates. THROAT: No erythema or exudates. NECK: No masses, no JVD, no thyroid enlargement, no adenopathy. CHEST: No chest wall deformity. Symmetrical expansion. LUNGS: Equal air entry with diffuse rhonchi throughout CVS: Regular rate and rhythm, normal S1 and S2, no gallops, no murmurs, no rubs ABDOMEN: Soft, nontender. No hepatosplenomegaly, normal bowel sounds, no guarding or rigidity. PEG tube present in the left upper abdomen, feedings are on hold right now EXTREMITIES: No clubbing, no edema, no cyanosis, 2+ pulses and upper and lower extremities. Chronic contractures involving upper and lower extremities, muscle weakness and overall rigidity MUSCULOSKELETAL: Chronic contractures, muscle wasting SPINE: No scoliosis or deformity SKIN: No rashes CENTRAL NERVOUS SYSTEM: Alert, unable to assess orientation, patient is nonverbal, he is able to nod his head yes to simple questions - Labs CBC & Chem 7: 09/11/19 05:11 09/11/19 05:11 Labs: Abnormal Lab Results - Last 24 Hours (Table) 09/10/19 09/11/19 09/11/19 Range/Units 12:12 00:07 05:11 WBC 13.5 H (3.8-10.6) k/uL RBC 4.23 L (4.30-5.90) m/uL Hgb 10.8 L (13.0-17.5) gm/dL Hct 34.8 L (39.0-53.0) % RDW 16.9 H (11.5-15.5) % Neutrophils # 12.1 H (1.3-7.7) k/uL Lymphocytes # 0.7 L (1.0-4.8) k/uL Potassium (3.5-5.1) mmol/L Chloride (98-107) mmol/L Carbon Dioxide (22-30) mmol/L Glucose (74-99) mg/dL POC Glucose (mg/dL) 118 H 111 H (75-99) mg/dL 09/11/19 09/11/19 Range/Units 05:11 06:05 WBC (3.8-10.6) k/uL RBC (4.30-5.90) m/uL Hgb (13.0-17.5) gm/dL Hct (39.0-53.0) % RDW (11.5-15.5) % Neutrophils # (1.3-7.7) k/uL Lymphocytes # (1.0-4.8) k/uL Potassium 3.3 L (3.5-5.1) mmol/L Chloride 112 H (98-107) mmol/L Carbon Dioxide 21 L (22-30) mmol/L Glucose 120 H (74-99) mg/dL POC Glucose (mg/dL) 120 H (75-99) mg/dL Microbiology - Last 24 Hours (Table) 09/08/19 16:53 Urine Culture - Final Urine,Clean Catch Proteus mirabilis Escherichia coli 09/10/19 04:58 Blood Culture Gram Stain - Preliminary Blood 09/10/19 04:58 Blood Culture - Final Blood 09/10/19 14:00 Urine Culture - Preliminary Urine,Catheterized 09/08/19 16:35 Blood Culture Gram Stain - Preliminary Blood Blood Culture - Preliminary Staphylococcus aureus Assessment and Plan Plan: Assessment: #1. Acute hypoxemic respiratory failure related to acute pneumonia likely related to aspiration. Chest x-ray showed right-sided perihilar infiltrates, left lower lobe infiltrate #2. Suspect chronic aspiration, despite nothing by mouth status the patient is being fed by a PEG tube #3. Urinary tract infection related to ESBL E. coli and Proteus mirabilis #4. Severe multiple sclerosis with cognitive impairment, speech impairment, muscle atrophy, rigidity, chronic contractures, urinary and bowel incontinence gait impairment #5. History of recurrent urinary tract infections including with ESBL organisms and pseudomonal infections #6. Recent hospitalization in July for urinary tract infection with sepsis and urine culture was positive for ESBL E. coli #7. Chronic dysphagia, patient has a PEG tube #8. Multiple hospitalizations related to history of negative bacteremia, recurrent urinary tract infections #9. Poor baseline functioning status, patient is bedridden, and [facility] a [facility] Plan: Continue current medical treatment, continue breathing treatments, maintain aspiration precautions, tube feedings have been resumed, patient is tolerating them well so far, patient is receiving continuous tube feedings, wean FiO2, encouraged the patient to deep breathe and cough, patient does follow simple commands, and does attempt to cough. His chest x-ray has been reviewed showing scattered airspace infiltrates stable in appearance. A bad as per ID service recommendations. Continue to follow. I performed a history & physical examination of the patient and discussed their management with my nurse practitioner, Naheed Pace. I reviewed the nurse practitioner's note and agree with the documented findings and plan of care. Lung sounds are positive for diffuse rhonchi throughout the lung prater. The findings and the impression was discussed with the patient. I attest to the documentation by the nurse practitioner. Time with Patient: Less than 30
[2019-09-11] MEDS: OXYBUTYNIN CHLORIDE 5 MG TAB PEG/G-TUBE SCH ×3 (09:11→21:04)
[2019-09-11] MEDS: BACLOFEN 10 MG TAB PEG/G-TUBE SCH ×3 (09:11→21:04)
[2019-09-11] MEDS: PANTOPRAZOLE SODIUM 40 MG GRANULE PKT PEG/G-TUBE SCH (09:11)
[2019-09-11] MEDS: METOPROLOL TARTRATE 50 MG TAB PEG/G-TUBE SCH ×2 (09:11→21:04)
[2019-09-11] MEDS: AMANTADINE HCL 100 MG/10 ML CUP PO SCH ×2 (09:11→21:04)
[2019-09-11] MEDS: ERTAPENEM 1 GM in SODIUM CHLORIDE 0.9% 50 ML IVPB SCH (09:12)
[2019-09-11] MEDS: ASCORBIC ACID 500 MG TAB PEG/G-TUBE SCH (09:12)
[2019-09-11] MEDS: HEPARIN SODIUM,PORCINE 5,000 UNIT/ML 1 ML VIAL SQ SCH ×2 (09:12→21:04)
[2019-09-11] MEDS: CHOLECALCIFEROL 1,000 UNIT TAB PEG/G-TUBE SCH (09:12)
[2019-09-11 11:58] LABS: Glucose,Whole Blood 121 mg/dL (75-99)
--- NOTE | 2019-09-11 14:33 | P.PN ---
Subjective Progress Note Date: 09/11/19 Principal diagnosis: Aspiration pneumonia Patient was seen and examined. Nonverbal and noncommunicative. Currently on high flow nasal cannula at 12 L saturating at to high 90s. Low-grade fever of 99.8 on 09/10/2019, afebrile since. Tachycardic, blood pressure remains stable. Hemoglobin 10.8 with new leukocytosis of 13.5. Potassium 3.3, replaced via protocol. Chest x-ray this morning shows scattered airspace infiltrates without significant change. Currently on ertapenem and vancomycin. Objective - Vital Signs Vital signs: Vital Signs Temp 98.4 F 09/11/19 12:00 Pulse 104 H 09/11/19 12:00 Resp 31 H 09/11/19 12:00 BP 142/88 09/11/19 12:00 Pulse Ox 94 L 09/11/19 12:00 Intake & Output 09/10/19 09/11/19 09/11/19 18:59 06:59 18:59 Intake Total 795 Output Total 360 700 Balance -360 95 Weight 70.9 kg 69 kg Intake: IV 70 Sodium Chloride 0.9% 1, 70 000 ml @ 10 mls/hr IV . Q24H [facility] Rx#:[id number] Intake, IV Titration 50 Amount Ertapenem 1 gm In Sodium 50 Chloride 0.9% 50 ml @ 100 mls/hr IVPB DAILY [facility] Rx #:[id number] Tube Feeding 585 Other 90 Output: Urine 360 700 Other: Voiding Method Indwelling Catheter Indwelling Catheter Indwelling Catheter # Bowel Movements 1 1 - Exam General: [non toxic], [cachectic], [appears at stated age], [12 L high flow nasal cannula] Derm: [warm], [dry] Head: [atraumatic], [normocephalic], [symmetric] Eyes: [EOMI], [no lid lag], [anicteric sclera] Mouth: [no lip lesion], [mucus membranes moist] Cardiovascular: [S1S2 reg], [tachycardic], [positive DP pulse bilateral], Lungs: [Coarse breath sounds bilateral], [no rhonchi, no rales] , [no accessory muscle use] Abdominal: [soft], [ nontender to palpation], [no guarding], [no appreciable organomegaly], [PEG tube left upper quadrant] Ext: [no gross muscle atrophy], [no edema], [bilateral upper and lower extremity contractures] Neuro: [Unable to assess] Psych: [Unable to determine] - Labs CBC & Chem 7: 09/11/19 05:11 09/11/19 05:11 Labs: Abnormal Lab Results - Last 24 Hours (Table) 09/11/19 09/11/19 09/11/19 Range/Units 00:07 05:11 05:11 WBC 13.5 H (3.8-10.6) k/uL RBC 4.23 L (4.30-5.90) m/uL Hgb 10.8 L (13.0-17.5) gm/dL Hct 34.8 L (39.0-53.0) % RDW 16.9 H (11.5-15.5) % Neutrophils # 12.1 H (1.3-7.7) k/uL Lymphocytes # 0.7 L (1.0-4.8) k/uL Potassium 3.3 L (3.5-5.1) mmol/L Chloride 112 H (98-107) mmol/L Carbon Dioxide 21 L (22-30) mmol/L Glucose 120 H (74-99) mg/dL POC Glucose (mg/dL) 111 H (75-99) mg/dL 09/11/19 09/11/19 Range/Units 06:05 11:47 WBC (3.8-10.6) k/uL RBC (4.30-5.90) m/uL Hgb (13.0-17.5) gm/dL Hct (39.0-53.0) % RDW (11.5-15.5) % Neutrophils # (1.3-7.7) k/uL Lymphocytes # (1.0-4.8) k/uL Potassium (3.5-5.1) mmol/L Chloride (98-107) mmol/L Carbon Dioxide (22-30) mmol/L Glucose (74-99) mg/dL POC Glucose (mg/dL) 120 H 121 H (75-99) mg/dL Microbiology - Last 24 Hours (Table) 09/10/19 04:58 Blood Culture Gram Stain - Preliminary Blood Blood Culture - Preliminary Presumptive MRSA 09/08/19 16:07 Blood Culture Gram Stain - Final Blood Blood Culture - Final Methicillin resist S. aureus 09/08/19 16:35 Blood Culture Gram Stain - Final Blood Blood Culture - Final Methicillin resist S. aureus 09/08/19 16:53 Urine Culture - Final Urine,Clean Catch Proteus mirabilis Escherichia coli 09/10/19 04:58 Blood Culture - Final Blood 09/10/19 14:00 Urine Culture - Preliminary Urine,Catheterized Assessment and Plan Assessment: Sepsis related to aspiration pneumonia Acute hypoxic respiratory failure due to above Urinary tract infection with history of ESBL and pseudomonal infection related to chronic Stein catheter Hypokalemia Multiple sclerosis with chronic debility and contractures History of DVT Hypertension Patient initially met sepsis criteria. T-max 103 F, heart rate in the 140s, tachypnic on admission. Leukocytosis of 12.9 on September 09. Lactic acid negative. Influenza negative. Blood culture positive MRSA. Chest x-ray on admission showing right-sided infiltrate, left lower lobe pneumonia. Plans: Continue vancomycin and ertapenem pending cultures. Robitussin as needed for c ough. DuoNeb scheduled for shortness of breath and wheezing. Scopolamine patch for secretions. Telemetry monitoring. Follow blood culture final. Follow sputum culture. Follow ID and pulmonology recommendations. Plans: Management as above. History of ESBL. Urinalysis shows large leukocyte esterase, urine culture shows Proteus mirabilis and E. coli. Plans: Continue IV antibiotics as above. Follow urine culture. Potassium 3.3. Plans: Replace via protocol. Repeat BMP. Family adamant about full CODE STATUS. Plans: Continue amantadine. Continue supportive treatment. Heparin for DVT prophylaxis. Social work consulted for return back to [facility]. Plans: DVT prophylaxis. BP 142/88. Plans: Continue metoprolol. Monitor vitals, adjust medications as necessary. [Patient admitted for sepsis related to aspiration pneumonia. Also has UTI with history of ESBL and pseudomonal/E. coli infections. Prognosis extremely guarded at this time. Pulmonology, ID on board.]
[2019-09-11] MEDS: SCOPOLAMINE 1.5MG/72HR PATCH TRANSDERM SCH ×2 (16:16→21:26)
[2019-09-11 17:41] LABS: Glucose,Whole Blood 132 mg/dL (75-99)
--- NOTE | 2019-09-11 17:46 | PN ---
PROGRESS NOTE DATE OF SERVICE: 09/11/2019 REASON FOR FOLLOWUP: 1. MRSA bacteremia, possible pneumonia. 2. ESBL E coli urinary tract infection. 3. Diarrhea. INTERVAL HISTORY: The patient's overall fever pattern has improved. The highest temperature in the last 24 hours has been 99.8. The patient is hemodynamically stable, not requiring pressor support. FiO2 is currently on nasal cannula oxygen. No vomiting has been reported. However, the patient did have a large bowel movement last night and one has been noticed today. Subsequently fecal management system has been applied. PHYSICAL EXAMINATION: Blood pressure 166/92 with a pulse of 102, temperature 99.4. He is 98% on high-flow nasal oxygen. General description is a middle-aged male lying in bed in no distress. RESPIRATORY SYSTEM: Unlabored breathing with decreased breath sounds at the base. No wheeze. HEART: S1, S2. Regular rate and rhythm. ABDOMEN: Soft. No tenderness. EXTREMITIES: No edema of the feet. LABS: White count is 13.5. BUN of 15, creatinine 0.67. Stool for C difficile requested and came back negative. Blood culture has been MRSA. Urine is E coli, ESBL and Proteus. DIAGNOSTIC IMPRESSION AND PLAN: 1. Patient admitted to hospital with sepsis. Source is multifactorial in this patient who did have MRSA bacteremia, source possibly pneumonia. Blood culture will be repeated to document clearance of his bacteremia. Vancomycin, Pharmacy to dose, target of 15. Monitor his kidney function closely. 2. Patient with extended-spectrum beta-lactamase Escherichia coli urinary tract infection versus Stein colonization. Stein has been changed. Repeat urine will be followed to determine need for further IV Invanz. 3. Diarrhea, possibly antibiotic-associated. C difficile has been negative. Will add Questran for symptomatic relief. MMODL / IJN: [id number] /
[2019-09-11] MEDS: ACETAMINOPHEN ORAL SUSP 160 MG/5 ML CUP PEG/G-TUBE PRN (18:30)
[2019-09-12 00:21] LABS: Glucose,Whole Blood 124 mg/dL (75-99)
[2019-09-12 01:59] LABS: ABG Base Excess 2.5 mmol/L; ABG HCO3 26 mmol/L (21-25); ABG Oxygen Saturation 96.8 % (94-97); ABG PCO2 35 mmHg (35-45); ABG PH 7.48 (7.35-7.45); ABG PO2 81 mmHg (83-108); ABG TCO2 27 mmol/L (19-24); Allen Test Performed? Yes
[2019-09-12] MEDS: SODIUM CHLORIDE 0.9% 1,000 ML IV SCH (04:11)
[2019-09-12] MEDS ORDERED: VANCOMYCIN TROUGH DUE 1 EACH MISC MISCELLANE ONE (05:00)
[2019-09-12] MEDS: VANCOMYCIN 1,000 MG in SODIUM CHLORIDE 0.9% 250 ML IVPB SCH (05:44)
[2019-09-12 06:18] LABS: Glucose,Whole Blood 137 mg/dL (75-99)
[2019-09-12] MEDS: IPRATROPIUM-ALBUTEROL 3 ML NEB INHALATION SCH ×4 (06:57→19:38)
--- NOTE | 2019-09-12 08:19 | P.PN ---
Subjective Progress Note Date: 09/12/19 Principal diagnosis: Aspiration pneumonia This is 59-year-old white male patient of resident of a local jail, with the history of severe MS, poor baseline functioning status, chronic contractures of lower extremities, nonambulatory, patient is essentially bedridden and n onverbal. We have seen patient in consultation during his previous admissions for complications related to sepsis secondary to recurrent urinary tract infections related to Pseudomonas, gram-negative bacteremia, ESBL producing E. coli in the urine. Most recently in July 2019 she was hospitalized for gram- negative sepsis with urine cultures positive for ESBL producing E. coli. Patient was treated, and improved, [facility], yesterday on 09/08/2019 patient presents to the hospital per EMS evaluation of hypoxemia, less of breath, and audible congestion, he was placed on the 100% nonrebreather, pulse ox is 95%, she was febrile on admission, with a temp of 103.0F. Chest x-ray was taken showing mild right-sided perihilar infiltrate, and mild left lower lobe pneumonia that appears to be new since his last admission and his last chest x-ray on 07/31/2019. Admission lab work showed a white blood cell count of 9.4, hemoglobin of 13.8, sodium of 133, p otassium is 5.0, chloride is 101, CO2 is 21, B1 is 21 creatinine 0.71, troponin was negative 1 is 0.016, urinalysis was positive for moderate amount of blood, large amount of leuks, white blood cells in clumps, rare bacteria, culture is pending, influenza screen was negative. Patient was started on a combination of Zosyn and vancomycin, breathing treatments, he remains nothing by mouth, he is being fed via the PEG tube. He seen this morning in the intensive care unit, remains on a percent nonrebreather mask, his cough is very weak, he is not able to clear secretions, and he is audibly congested. Given a dose of IV Lasix this morning for chest congestion, diuresed, however not sounding significantly better. On 09/10/2017 patient seen in follow-up in the intensive care unit, he is awake, appears less dyspneic on today's exam, FiO2 is down to 12 L per high flow nasal cannula, oxygen 98%, hemodynamically stable, tachypneic shallow breaths, but no acute distress, low-grade fevers, sinus tachycardia on the monitor. Still congested, although sounding better on today's exam, remains on antibiotics, she was switched from Zosyn to Invanz, continues on vancomycin, urine culture is positive for gram-negative bacilli, final cultures pending, blood cultures are positive for staph aureus. Today's labs have been reviewed including cell count 8.5, hemoglobin of 10.2, platelet count is 325, sodium is 139, potassium 3.4, chloride is 112, CO2 is 18, BUN 17 creatinine 0.84. Registered dietitian has been consulted for evaluation of nutritional needs, and we anticipate starting tube feedings today, the continuous feeding on the feeding pump. His chest x- ray showed worsening new moderate interstitial pulmonary edema and the more confluent right-sided opacities. On 09/11/2019 patient seen in follow-up in the intensive care unit, patient is alert, he is nonverbal, she follows simple command, his cough is very weak, and patient is still audibly congested, and not able to bring up any phlegm, remains on high flow oxygen, currently at 12 L with a pulse ox of 97%, slightly tachycar dic and the heart rate is ranging from 105-112 BPM, he is afebrile, hemodynamically patient is stable, tube feedings have been resumed, and she is on continuous tube feedings via feeding pump, with a viral AF at a rate is 65 ML per hour, with standard water flushes. Patient remains on antibiotics with Invanz and vancomycin, urine culture revealed 2 different gram-negative organisms with Proteus mirabilis and ESBL E. coli, both susceptible to ertapenem. Blood culture from 09/08/2019 was positive for Staphylococcus aureus, although blood cultures have been done, and so far are negative, his labs have been reviewed, showing white blood cell count of 13.5, hemoglobin of 10.8, sodium is 144, potassium is 3.3, chloride is 112, CO2 is 21, BUN is 15, creatinine 0.67. Patient has been having intermittent low-grade fevers, last one last night at 2000, with a temp of 99.8F, afebrile this morning. On 09/12/2019 patient seen in follow-up in the intensive care unit, he is on 10 L of oxygen, his pulse ox of 98%, a low-grade fever this morning, tachycardic in sinus mechanism with a rate of 112 BPM, patient was noted to be more short of breath, remains congested, his cough is weak, patient is unable to clear secretions, blood gas was then obtained on 11 L high flow oxygen, and review pO2 of 81, pCO2 of 35 and pH of 7.48. Patient remains on Invanz and vancomycin for evidence of ESBL E. coli, Proteus mirabilis in the urine culture, patient also had MRSA bacteremia, morning his follow-up blood culture from 09/10/2019 also shows presumptive MRSA, final culture is pending. Patient is on tube feedings, is having loose stools, stool for C. diff was sent and the results are pending at this time. Remains strict nothing by mouth. No new chest x-ray today, yesterday's chest x-ray showed scattered air space infiltrates bilaterally, without significant change from prior chest x-rays. Objective - Vital Signs Vital signs: Vital Signs Temp 99.9 F H 09/12/19 04:00 Pulse 111 H 09/12/19 07:07 Resp 18 09/12/19 04:00 BP 172/93 09/12/19 04:00 Pulse Ox 98 09/12/19 06:57 Intake & Output 09/11/19 09/12/19 09/12/19 18:59 06:59 18:59 Intake Total 1460 1230 75 Output Total 825 1050 100 Balance 635 180 -25 Weight 68.1 kg Intake: IV 100 110 10 Sodium Chloride 0.9% 1, 100 110 10 000 ml @ 10 mls/hr IV . Q24H [facility] Rx#:[id number] Intake, IV Titration 300 250 Amount Ertapenem 1 gm In Sodium 50 Chloride 0.9% 50 ml @ 100 mls/hr IVPB DAILY [facility] Rx #:[id number] Vancomycin 1,000 mg In 250 250 Sodium Chloride 0.9% 250 ml @ 125 mls/hr IVPB Q12H [facility] Rx#:[id number] Tube Feeding 910 780 65 Other 150 90 Output: Urine 825 1050 100 Other: Voiding Method Indwelling Catheter Indwelling Catheter # Bowel Movements 1 - Exam GENERAL EXAM: Alert, nonverbal, 59-year-old white male, cachectic currently on the 10 L per high flow nasal cannula, with a pulse ox of 98%, audible upper airway congestion and, patient has a very weak cough HEAD: Normocephalic/atraumatic. EYES: Normal reaction of pupils, equal size. Conjunctiva pink, sclera white. NOSE: Clear with pink turbinates. THROAT: No erythema or exudates. NECK: No masses, no JVD, no thyroid enlargement, no adenopathy. CHEST: No chest wall deformity. Symmetrical expansion. LUNGS: Equal air entry with diffuse rhonchi throughout CVS: Regular rate and rhythm, normal S1 and S2, no gallops, no murmurs, no rubs ABDOMEN: Soft, nontender. No hepatosplenomegaly, normal bowel sounds, no guarding or rigidity. PEG tube present in the left upper abdomen, feedings are on hold right now EXTREMITIES: No clubbing, no edema, no cyanosis, 2+ pulses and upper and lower extremities. Chronic contractures involving upper and lower extremities, muscle weakness and overall rigidity MUSCULOSKELETAL: Chronic contractures, muscle wasting SPINE: No scoliosis or deformity SKIN: No rashes CENTRAL NERVOUS SYSTEM: Alert, unable to assess orientation, patient is nonverbal, he is able to nod his head yes to simple questions - Labs CBC & Chem 7: 09/11/19 05:11 09/11/19 05:11 Labs: Abnormal Lab Results - Last 24 Hours (Table) 09/11/19 09/11/19 09/12/19 Range/Units 11:47 17:30 00:09 ABG pH (7.35-7.45) ABG pO2 (83-108) mmHg ABG HCO3 (21-25) mmol/L ABG Total CO2 (19-24) mmol/L POC Glucose (mg/dL) 121 H 132 H 124 H (75-99) mg/dL 09/12/19 09/12/19 Range/Units 01:55 06:07 ABG pH 7.48 H (7.35-7.45) ABG pO2 81 L (83-108) mmHg ABG HCO3 26 H (21-25) mmol/L ABG Total CO2 27 H (19-24) mmol/L POC Glucose (mg/dL) 137 H (75-99) mg/dL Microbiology - Last 24 Hours (Table) 09/08/19 16:35 Blood Culture Gram Stain - Final Blood Blood Culture - Final Methicillin resist S. aureus 09/10/19 14:00 Urine Culture - Final Urine,Catheterized 09/10/19 04:58 Blood Culture Gram Stain - Preliminary Blood Blood Culture - Preliminary Presumptive MRSA 09/08/19 16:07 Blood Culture Gram Stain - Final Blood Blood Culture - Final Methicillin resist S. aureus 09/08/19 16:53 Urine Culture - Final Urine,Clean Catch Proteus mirabilis Escherichia coli Assessment and Plan Plan: Assessment: #1. Acute hypoxemic respiratory failure related to acute pneumonia likely related to aspiration. Chest x-ray showed right-sided perihilar infiltrates, left lower lobe infiltrate #2. MRSA bacteremia #3. Suspect chronic aspiration, despite nothing by mouth status the patient is being fed by a PEG tube #4. Urinary tract infection related to ESBL E. coli and Proteus mirabilis #5. Severe multiple sclerosis with cognitive impairment, speech impairment, muscle atrophy, rigidity, chronic contractures, urinary and bowel incontinence gait impairment #6. History of recurrent urinary tract infections including with ESBL organisms and pseudomonal infections #7. Recent hospitalization in July for urinary tract infection with sepsis and urine culture was positive for ESBL E. coli #8. Chronic dysphagia, patient has a PEG tube #9. Multiple hospitalizations related to history of negative bacteremia, recurrent urinary tract infections #10. Poor baseline functioning status, patient is bedridden, and [facility] in a jail Plan: Continue Invanz and vancomycin, hemodynamically patient remains stable, maintain aspiration precautions, follow up blood culture from 09/10/2019 shows presumptive MRSA, final culture is pending, continue breathing treatments, continue tube feedings. GI DVT prophylaxis. Patient can be transferred to general medical floor. Overall prognosis is extremely guarded. I performed a history & physical examination of the patient and discussed their management with my nurse practitioner, Naheed Pace. I reviewed the nurse practitioner's note and agree with the documented findings and plan of care. Lung sounds are positive for diffuse rhonchi throughout the lung prater. The findings and the impression was discussed with the patient. I attest to the documentation by the nurse practitioner. Time with Patient: Less than 30
[2019-09-12] MEDS: HEPARIN SODIUM,PORCINE 5,000 UNIT/ML 1 ML VIAL SQ SCH ×2 (08:42→21:18)
[2019-09-12] MEDS: METOPROLOL TARTRATE 50 MG TAB PEG/G-TUBE SCH ×2 (08:42→21:18)
[2019-09-12] MEDS: CHOLECALCIFEROL 1,000 UNIT TAB PEG/G-TUBE SCH (08:42)
[2019-09-12] MEDS: OXYBUTYNIN CHLORIDE 5 MG TAB PEG/G-TUBE SCH ×3 (08:43→21:18)
[2019-09-12] MEDS: ASCORBIC ACID 500 MG TAB PEG/G-TUBE SCH (08:43)
[2019-09-12] MEDS: AMANTADINE HCL 100 MG/10 ML CUP PO SCH ×2 (08:44→21:18)
[2019-09-12] MEDS: PANTOPRAZOLE SODIUM 40 MG GRANULE PKT PEG/G-TUBE SCH (08:44)
[2019-09-12] MEDS: BACLOFEN 10 MG TAB PEG/G-TUBE SCH ×3 (08:45→21:18)
[2019-09-12] MEDS: ERTAPENEM 1 GM in SODIUM CHLORIDE 0.9% 50 ML IVPB SCH (09:00)
[2019-09-12] MEDS ORDERED: POTASSIUM BICARBONATE/CIT AC 20 MEQ TABLET.EFF NG-TUBE SCH (09:00)
[2019-09-12 12:15] LABS: Glucose,Whole Blood 137 mg/dL (75-99)
--- NOTE | 2019-09-12 13:16 | ECHOF ---
Referral Reason:MRSA bacteremia MEASUREMENTS -------- HEIGHT: 175.3 cm WEIGHT: 68.0 kg BP: IVSd: 1.0 cm (0.6 - 1.1) LVIDd: 3.1 cm (3.9 - 5.3) LVPWd: 1.3 cm (0.6 - 1.1) IVSs: 1.4 cm LVIDs: 2.2 cm LVPWs: 1.6 cm LAESV Index (A-L): 20.43 ml/m Ao Diam: 3.1 cm (2.0 - 3.7) AV Cusp: 2.0 cm (1.5 - 2.6) LA Diam: 2.8 cm (2.7 - 3.8) MV EXCURSION: 17.570 mm (> 18.000) MV EF SLOPE: 94 mm/s (70 - 150) EPSS: 0.5 cm MV E Memo: 0.62 m/s MV DecT: 113 ms MV A Memo: 0.85 m/s MV E/A Ratio: 0.73 RAP: 5.00 mmHg RVSP: 27.13 mmHg FINDINGS -------- Resting tachycardia (HR>100bpm). This was a technically difficult study with suboptimal views. The left ventricular size is normal. There is mild concentric left ventricular hypertrophy. Overa ll left ventricular systolic function is low-normal with, an EF between 50 - 55 %. The diastolic fi lling pattern is normal for the age of the patient 13.94. The right ventricle is normal in size. The left atrial size is normal. Normal LA size by volume 22+/-6 ml/m2. The right atrial size is normal. Lumason used The aortic valve is trileaflet and appears structurally normal. The mitral valve is normal. There is trace mitral regurgitation. The tricuspid valve appears structurally normal. Trace tricuspid regurgitation present. Right najma tricular systolic pressure is normal at < 35 mmHg. There is no pulmonic regurgitation present. The aortic root size is normal. IVC Not well visulized. There is no pericardial effusion. CONCLUSIONS -------- 1. Resting tachycardia (HR>100bpm). 2. This was a technically difficult study with suboptimal views. 3. The left ventricular size is normal. 4. There is mild concentric left ventricular hypertrophy. 5. Overall left ventricular systolic function is low-normal with, an EF between 50 - 55 %. 6. The diastolic filling pattern is normal for the age of the patient 13.94 7. The right ventricle is normal in size. 8. The left atrial size is normal. 9. Normal LA size by volume 22+/-6 ml/m2. 10. The right atrial size is normal. 11. Lumason used 12. The aortic valve is trileaflet and appears structurally normal. 13. The mitral valve is normal. 14. There is trace mitral regurgitation. 15. The tricuspid valve appears structurally normal. 16. Trace tricuspid regurgitation present. 17. Right ventricular systolic pressure is normal at < 35 mmHg. 18. There is no pulmonic regurgitation present. 19. The aortic root size is normal. 20. IVC Not well visulized. 21. There is no pericardial effusion. FOAMING MACHINE OPERATOR: Dorothy Ponce RDCS
--- NOTE | 2019-09-12 13:19 | P.PN ---
Subjective Progress Note Date: 09/12/19 Principal diagnosis: Aspiration pneumonia Patient was seen and examined. Nonverbal and noncommunicative. Currently on high flow nasal cannula at 10 L saturating at to high 90s, tachypneic respiratory rate in the 30s. Low-grade fever of 99.9 this morning. Tachycardic, blood pressure remains stable. Hemoglobin 10.8 with new leukocytosis of 13.5. Potassium 3.3, replaced via protocol. Currently on ertapenem and vancomycin as per ID. Objective - Vital Signs Vital signs: Vital Signs Temp 99.6 F 09/12/19 08:00 Pulse 101 H 09/12/19 11:20 Resp 31 H 09/12/19 08:00 BP 169/99 09/12/19 08:00 Pulse Ox 97 09/12/19 11:10 Intake & Output 09/11/19 09/12/19 09/12/19 18:59 06:59 18:59 Intake Total 1460 1230 360 Output Total 825 1050 400 Balance 635 180 -40 Weight 68.1 kg 68.1 kg Intake: IV 100 110 40 Sodium Chloride 0.9% 1, 100 110 40 000 ml @ 10 mls/hr IV . Q24H [facility] Rx#:[id number] Intake, IV Titration 300 250 Amount Ertapenem 1 gm In Sodium 50 Chloride 0.9% 50 ml @ 100 mls/hr IVPB DAILY [facility] Rx #:[id number] Vancomycin 1,000 mg In 250 250 Sodium Chloride 0.9% 250 ml @ 125 mls/hr IVPB Q12H [facility] Rx#:[id number] Tube Feeding 910 780 260 Other 150 90 60 Output: Urine 825 1050 400 Other: Voiding Method Indwelling Catheter Indwelling Catheter Indwelling Catheter # Bowel Movements 1 - Exam General: [non toxic], [cachectic], [appears at stated age], [10 L high flow nasal cannula] Derm: [warm], [dry] Head: [atraumatic], [normocephalic], [symmetric] Eyes: [EOMI], [no lid lag], [anicteric sclera] Mouth: [no lip lesion], [mucus membranes moist] Cardiovascular: [S1S2 reg], [tachycardic], [positive DP pulse bilateral], Lungs: [Coarse breath sounds bilateral], [no rhonchi, no rales] , [respiratory rate in the 30s appears to be in respiratory distress] Abdominal: [soft], [ nontender to palpation], [no guarding], [no appreciable organomegaly], [PEG tube left upper quadrant] Ext: [no gross muscle atrophy], [no edema], [bilateral upper and lower extremity contractures] Neuro: [Unable to assess] Psych: [Unable to assessment] - Labs CBC & Chem 7: 09/11/19 05:11 09/11/19 05:11 Labs: Abnormal Lab Results - Last 24 Hours (Table) 09/11/19 09/12/19 09/12/19 Range/Units 17:30 00:09 01:55 ABG pH 7.48 H (7.35-7.45) ABG pO2 81 L (83-108) mmHg ABG HCO3 26 H (21-25) mmol/L ABG Total CO2 27 H (19-24) mmol/L POC Glucose (mg/dL) 132 H 124 H (75-99) mg/dL 09/12/19 09/12/19 Range/Units 06:07 12:04 ABG pH (7.35-7.45) ABG pO2 (83-108) mmHg ABG HCO3 (21-25) mmol/L ABG Total CO2 (19-24) mmol/L POC Glucose (mg/dL) 137 H 137 H (75-99) mg/dL Microbiology - Last 24 Hours (Table) 09/10/19 04:58 Blood Culture Gram Stain - Final Blood Blood Culture - Final Methicillin resist S. aureus 09/08/19 16:35 Blood Culture Gram Stain - Final Blood Blood Culture - Final Methicillin resist S. aureus 09/10/19 14:00 Urine Culture - Final Urine,Catheterized 09/08/19 16:07 Blood Culture Gram Stain - Final Blood Blood Culture - Final Methicillin resist S. aureus Assessment and Plan Assessment: Sepsis related to aspiration pneumonia and UTI Acute hypoxic respiratory failure due to above Diarrhea Urinary tract infection with history of ESBL and pseudomonal infection related to chronic Stein catheter Hypokalemia Multiple sclerosis with chronic debility and contractures History of DVT Hypertension Patient meets sepsis criteria. T-max 103 F, heart rate in the 140s, tachypnic on admission. Leukocytosis of 12.9 on September 09. Lactic acid negative. Influenza negative. Blood culture positive MRSA. Chest x-ray on admission showing right-sided infiltrate, left lower lobe pneumonia. Urine culture positive for Proteus and E. coli sensitive to ertapenem. Plans: Continue vancomycin and ertapenem. Follow repeat blood cultures. Robitussin as needed for cough. DuoNeb scheduled for shortness of breath and wheezing. Scopolamine patch for secretions. Telemetry monitoring. Follow sputum culture. Follow ID and pulmonology recommendations. Repeat chest x-ray tomorrow. ABG this morning points towards respiratory alkalosis. Plans: Management as above. Low threshold for intubation. C. diff negative. Plans: Symptomatic management. History of ESBL. Urinalysis shows large leukocyte esterase, urine culture shows Proteus mirabilis and E. coli. Plans: Continue IV antibiotics as above. Potassium 3.3. Plans: Replace via protocol. Repeat BMP. Family adamant about full CODE STATUS. Plans: Continue amantadine. Continue supportive treatment. Heparin for DVT prophylaxis. Social work consulted for return back to [facility]. Plans: DVT prophylaxis. BP 169/99. Plans: Continue metoprolol. Monitor vitals, adjust medications as necessary. [Patient admitted for sepsis related to aspiration pneumonia. Also has UTI with history of ESBL and pseudomonal/E. coli infections. Prognosis extremely guarded at this time. Pulmonology, ID on board.]
--- NOTE | 2019-09-12 17:05 | PN ---
PROGRESS NOTE DATE OF SERVICE: 09/12/2019 REASON FOR FOLLOWUP: MRSA bacteremia, likely pneumonia. INTERVAL HISTORY: The patient's overall fever pattern has improved. The patient is currently hemodynamically stable. The patient's FiO2 is currently down to 6 L nasal cannula. He has been tolerating his tube feeds. No vomiting has been reported. He continues to have fecal management system. PHYSICAL EXAMINATION: Blood pressure is 169/99 with a pulse of 111, temperature 99.6. He is 91% on 8 L nasal cannula. General description is a middle-aged male lying in bed in no distress. RESPIRATORY SYSTEM: Unlabored breathing with decreased breath sounds at the base. No wheeze. HEART: S1, S2. Regular rate and rhythm. ABDOMEN: Soft. No tenderness. LABS: No new labs have been obtained today. Blood culture from 09/10/2019 has been positive. Blood culture from 09/11/2019 is currently pending. Sputum not collected. DIAGNOSTIC IMPRESSION AND PLAN: 1. Patient with methicillin-resistant Staphylococcus aeruginosa bacteremia. Source is likely pneumonia with persistent bacteremia, underlying deep or infection not entirely excluded. Will discuss with Pulmonary. He may benefit from a CT to make sure there is no evidence of any loculated effusion or empyema. Currently on vancomycin, Pharmacy to dose; to continue. Echocardiogram is negative. 2. Patient with a positive urine culture with extended-spectrum beta-lactamase. Repeat is so far negative. If it remains negative, recommend discontinuing Invanz. MMODL / IJN: [id number] /
[2019-09-12] MEDS: VANCOMYCIN 1,250 MG in SODIUM CHLORIDE 0.9% 250 ML IVPB SCH (17:31)
[2019-09-12 18:21] LABS: Glucose,Whole Blood 130 mg/dL (75-99)
[2019-09-12] MEDS: ACETAMINOPHEN TAB 325 MG TAB PO PRN (21:53)
[2019-09-13 00:21] LABS: Glucose,Whole Blood 160 mg/dL (75-99)
[2019-09-13] MEDS: SODIUM CHLORIDE 0.9% 1,000 ML IV SCH (03:51)
[2019-09-13 04:57] LABS: Anisocytosis Slight; HCT 36.3 % (39.0-53.0); HGB 10.8 gm/dL (13.0-17.5); Hypochromasia Moderate; MCH 24.5 pg (25.0-35.0); MCHC 29.7 g/dL (31.0-37.0); MCV 82.4 fL (80.0-100.0); Mean Platelet Volume 8.8; Platelet Count 332 k/uL (150-450); RDW 17.8 % (11.5-15.5)
[2019-09-13 05:06] LABS: African American GFR (CKD) >90 (>60 ml/min/1.73 sqM); Anion Gap 5 mmol/L; Blood Urea Nitrogen 22 mg/dL (9-20); Calcium 8.6 mg/dL (8.4-10.2); Carbon Dioxide 26 mmol/L (22-30); Chloride 118 mmol/L (98-107); Glucose 121 mg/dL (74-99); Non-African American GFR(CKD) >90 (>60 ml/min/1.73 sqM); Potassium 3.3 mmol/L (3.5-5.1); Sodium 149 mmol/L (137-145)
[2019-09-13] MEDS: ACETAMINOPHEN ORAL SUSP 160 MG/5 ML CUP PEG/G-TUBE PRN ×2 (05:29→14:41)
[2019-09-13] MEDS: VANCOMYCIN 1,250 MG in SODIUM CHLORIDE 0.9% 250 ML IVPB SCH ×2 (05:29→18:41)
[2019-09-13] MEDS: POTASSIUM BICARBONATE/CIT AC 20 MEQ TABLET.EFF NG-TUBE SCH ×4 (05:29→18:41)
[2019-09-13 05:57] LABS: Glucose,Whole Blood 125 mg/dL (75-99)
[2019-09-13] MEDS: IPRATROPIUM-ALBUTEROL 3 ML NEB INHALATION SCH ×4 (07:46→19:19)
--- NOTE | 2019-09-13 09:38 | P.PN ---
Subjective Progress Note Date: 09/13/19 Principal diagnosis: Aacute hypoxemic respiratory failure secondary to acute pneumonia suspect aspiration. This is 59-year-old white male patient of resident of a local residential, with the history of severe MS, poor baseline functioning status, chronic contractures of lower extremities, nonambulatory, patient is essentially bedridden and nonverbal. We have seen patient in consultation during his previous admissions for complications related to sepsis secondary to recurrent urinary tract infections related to Pseudomonas, gram-negative bacteremia, ESBL producing E. coli in the urine. Most recently in July 2019 she was hospitalized for gram- negative sepsis with urine cultures positive for ESBL producing E. coli. Patient was treated, and improved, discharged back to the residential on 08/2019, yesterday on 09/08/2019 patient presents to the hospital per EMS e valuation of hypoxemia, less of breath, and audible congestion, he was placed on the 100% nonrebreather, pulse ox is 95%, she was febrile on admission, with a temp of 103.0F. Chest x-ray was taken showing mild right-sided perihilar infiltrate, and mild left lower lobe pneumonia that appears to be new since his last admission and his last chest x-ray on 07/31/2019. Admission lab work showed a white blood cell count of 9.4, hemoglobin of 13.8, sodium of 133, potassium is 5.0, chloride is 101, CO2 is 21, B1 is 21 creatinine 0.71, troponin was negative 1 is 0.016, urinalysis was positive for moderate amount of blood, large amount of leuks, white blood cells in clumps, rare bacteria, culture is pending, influenza screen was negative. Patient was started on a combination of Zosyn and vancomycin, breathing treatments, he remains nothing by mouth, he is being fed via the PEG tube. He seen this morning in the intensive care unit, remains on a percent nonrebreather mask, his cough is very weak, he is not able to clear secretions, and he is audibly congested. Given a dose of IV Lasix this morning for chest congestion, diuresed, however not sounding significantly better. On 09/10/2017 patient seen in follow-up in the intensive care unit, he is awake, appears less dyspneic on today's exam, FiO2 is down to 12 L per high flow nasal cannula, oxygen 98%, hemodynamically stable, tachypneic shallow breaths, but no acute distress, low-grade fevers, sinus tachycardia on the monitor. Still congested, although sounding better on today's exam, remains on antibiotics, she was switched from Zosyn to Invanz, continues on vancomycin, urine culture is positive for gram-negative bacilli, final cultures pending, blood cultures are positive for staph aureus. Today's labs have been reviewed including cell count 8.5, hemoglobin of 10.2, platelet count is 325, sodium is 139, potassium 3.4, c hloride is 112, CO2 is 18, BUN 17 creatinine 0.84. Registered dietitian has been consulted for evaluation of nutritional needs, and we anticipate starting tube feedings today, the continuous feeding on the feeding pump. His chest x- ray showed worsening new moderate interstitial pulmonary edema and the more confluent right-sided opacities. On 09/11/2019 patient seen in follow-up in the intensive care unit, patient is alert, he is nonverbal, she follows simple command, his cough is very weak, and patient is still audibly congested, and not able to bring up any phlegm, remains on high flow oxygen, currently at 12 L with a pulse ox of 97%, slightly tachycardic and the heart rate is ranging from 105-112 BPM, he is afebrile, hemodynamically patient is stable, tube feedings have been resumed, and she is on continuous tube feedings via feeding pump, with a viral AF at a rate is 65 ML per hour, with standard water flushes. Patient remains on antibiotics with Invanz and vancomycin, urine culture revealed 2 different gram-negative organisms with Proteus mirabilis and ESBL E. coli, both susceptible to ertapenem. Blood culture from 09/08/2019 was positive for Staphylococcus aureus, although blood cultures have been done, and so far are negative, his labs have been reviewed, showing white blood cell count of 13.5, hemoglobin of 10.8, sodium is 144, potassium is 3.3, chloride is 112, CO2 is 21, BUN is 15, creatinine 0.67. Patient has been having intermittent low-grade fevers, last one last night at 2000, with a temp of 99.8F, afebrile this morning. On 09/12/2019 patient seen in follow-up in the intensive care unit, he is on 10 L of oxygen, his pulse ox of 98%, a low-grade fever this morning, tachycardic in sinus mechanism with a rate of 112 BPM, patient was noted to be more short of breath, remains congested, his cough is weak, patient is unable to clear secretions, blood gas was then obtained on 11 L high flow oxygen, and review pO2 of 81, pCO2 of 35 and pH of 7.48. Patient remains on Invanz and vancomycin for evidence of ESBL E. coli, Proteus mirabilis in the urine culture, patient also had MRSA bacteremia, morning his follow-up blood culture from 09/10/2019 also shows presumptive MRSA, final culture is pending. Patient is on tube feedings, is having loose stools, stool for C. diff was sent and the results are pending at this time. Remains strict nothing by mouth. No new chest x-ray today, yesterday's chest x-ray showed scattered air space infiltrates bilaterally, without significant change from prior chest x-rays. the patient is seen today 09/13/2019 in follow-up in the intensive care unit. He is currentlyon 8 L high flow nasal cannula to maintain O2 saturations in the 90s. He is febrile at 100.6 axillary today. Tachycardic in the 110's.respira tory rate 40.respiratory rate 40. chest x-ray reveals bilateral scattered infiltrates. Urine culture positive for Proteus mirabilis and E. coli. Blood cultures positive for MRSA.white count 10.0. Hemoglobin 10.8. Sodium 149. Potassium 3.3. Creatinine 0.59. His 0.9 normal saline at 10 MLS per hour. Tube feedings with vital AF 1.2 at 65 ML's. he remains on vancomycin and ertapenem. Objective - Vital Signs Vital signs: Vital Signs Temp 100.6 F H 09/13/19 08:00 Pulse 114 H 09/13/19 08:04 Resp 40 H 09/13/19 08:00 BP 153/88 09/13/19 08:00 Pulse Ox 93 L 09/13/19 08:00 Intake & Output 09/12/19 09/13/19 09/13/19 18:59 06:59 18:59 Intake Total 1050 1240 Output Total 750 600 Balance 300 640 Weight 68.1 kg 70 kg Intake: IV 120 120 Sodium Chloride 0.9% 1, 120 120 000 ml @ 10 mls/hr IV . Q24H [facility] Rx#:[id number] Intake, IV Titration 250 Amount Vancomycin 1,250 mg In 250 Sodium Chloride 0.9% 250 ml @ 125 mls/hr IVPB Q12H [facility] Rx#:[id number] Tube Feeding 780 780 Other 150 90 Output: Urine 750 600 Other: Voiding Method Indwelling Catheter Indwelling Catheter - Exam GENERAL EXAM: Alert, nonverbal, 59-year-old male patient, cachectic currently on the 8 L per high flow nasal cannula, with a pulse ox of 93%, audible upper airway congestion HEAD: Normocephalic/atraumatic. EYES: Normal reaction of pupils, equal size. Conjunctiva pink, sclera white. NOSE: Clear with pink turbinates. THROAT: No erythema or exudates. NECK: No masses, no JVD, no thyroid enlargement, no adenopathy. CHEST: No chest wall deformity. Symmetrical expansion. LUNGS: Equal air entry with diffuse rhonchi throughout CVS: Regular rate and rhythm, normal S1 and S2, no gallops, no murmurs, no rubs ABDOMEN: Soft, nontender. No hepatosplenomegaly, normal bowel sounds, no gua rding or rigidity. PEG tube present in the left upper abdomen, feedings are on hold right now EXTREMITIES: No clubbing, no edema, no cyanosis, 2+ pulses and upper and lower extremities. Chronic contractures involving upper and lower extremities, muscle weakness and overall rigidity MUSCULOSKELETAL: Chronic contractures, muscle wasting SPINE: No scoliosis or deformity SKIN: No rashes CENTRAL NERVOUS SYSTEM: Alert, unable to assess orientation, patient is nonverbal, he is able to nod his head yes to simple questions - Labs CBC & Chem 7: 09/13/19 04:41 09/13/19 04:41 Labs: Abnormal Lab Results - Last 24 Hours (Table) 09/12/19 09/12/19 09/13/19 Range/Units 12:04 18:09 00:09 Hgb (13.0-17.5) gm/dL Hct (39.0-53.0) % MCH (25.0-35.0) pg MCHC (31.0-37.0) g/dL RDW (11.5-15.5) % Sodium (137-145) mmol/L Potassium (3.5-5.1) mmol/L Chloride (98-107) mmol/L BUN (9-20) mg/dL Creatinine (0.66-1.25) mg/dL Glucose (74-99) mg/dL POC Glucose (mg/dL) 137 H 130 H 160 H (75-99) mg/dL 09/13/19 09/13/19 09/13/19 Range/Units 04:41 04:41 05:46 Hgb 10.8 L (13.0-17.5) gm/dL Hct 36.3 L (39.0-53.0) % MCH 24.5 L (25.0-35.0) pg MCHC 29.7 L (31.0-37.0) g/dL RDW 17.8 H (11.5-15.5) % Sodium 149 H (137-145) mmol/L Potassium 3.3 L (3.5-5.1) mmol/L Chloride 118 H (98-107) mmol/L BUN 22 H (9-20) mg/dL Creatinine 0.59 L (0.66-1.25) mg/dL Glucose 121 H (74-99) mg/dL POC Glucose (mg/dL) 125 H (75-99) mg/dL Microbiology - Last 24 Hours (Table) 09/12/19 04:41 Blood Culture - Preliminary Blood No Growth after 24 hours 09/11/19 17:12 Blood Culture - Preliminary Blood No Growth after 24 hours 09/10/19 04:58 Blood Culture Gram Stain - Final Blood Blood Culture - Final Methicillin resist S. aureus 09/08/19 16:35 Blood Culture Gram Stain - Final Blood Blood Culture - Final Methicillin resist S. aureus Assessment and Plan Assessment: #1. Acute hypoxemic respiratory failure related to acute pneumonia likely related to aspiration. Chest x-ray showed right-sided perihilar infiltrates, left lower lobe infiltrate #2. MRSA bacteremia #3. Suspect chronic aspiration, despite nothing by mouth status the patient is being fed by a PEG tube #4. Urinary tract infection related to ESBL E. coli and Proteus mirabilis #5. Severe multiple sclerosis with cognitive impairment, speech impairment, muscle atrophy, rigidity, chronic contractures, urinary and bowel incontinence gait impairment #6. History of recurrent urinary tract infections including with ESBL organisms and pseudomonal infections #7. Recent hospitalization in July for urinary tract infection with sepsis and urine culture was positive for ESBL E. coli #8. Chronic dysphagia, patient has a PEG tube #9. Multiple hospitalizations related to history of negative bacteremia, re current urinary tract infections #10. Poor baseline functioning status, patient is bedridden, and he resides in a residential Plan: The patient was seen and evaluated by Dr. Hawkins. He had spoken to the patient's sister yesterday. She states the patient is to remain a full code. Based on his current pulmonary status we'll plan on intubating the patient place him on mechanical ventilator. He will most likely need a permanent tracheostomy. He remains on vancomycin and ertapenem for now. Repeat sputum cultures sent. We'll continue with full supportive care. We will continue to follow and make further recommendations based on his clinical status. Critical care time not including procedures 38 minutes. I, the cosigning physician, performed a history & physical examination of the patient. Lungs sounds few scattered rhonchi. Maintaining good O2 saturations in the 90s on 8 L high flow nasal cannula. I discussed the assessment and plan of care with my nurse practitioner, Angela Hendrix. I attest to the above note as dictated by her. Time with Patient: Greater than 30
[2019-09-13] MEDS ORDERED: LORazepam 2 MG/ML INJ ONE (10:03)
[2019-09-13] MEDS ORDERED: MORPHINE SULFATE 2 MG/ML SYRINGE ONE (10:05)
[2019-09-13] MEDS ORDERED: MORPHINE SULFATE 4 MG/ML SYRINGE ONE (10:05)
[2019-09-13] MEDS ORDERED: SUCCINYLCHOLINE CHLORIDE VIAL 200 MG/10 ML VIAL IV ONE (10:23)
[2019-09-13] MEDS: CISATRACURIUM 2 MG/ML 5 ML VIAL IV ONE ×2 (10:27→11:12)
--- NOTE | 2019-09-13 10:27 | P.PN ---
Subjective Progress Note Date: 09/13/19 Principal diagnosis: Aspiration pneumonia Patient was seen and examined. Nonverbal and noncommunicative. Currently on high flow nasal cannula at 8 L saturating at to high 90s, tachypneic respiratory rate in the 30-40s with severely depressed respiratory function. Fever of 100 .6F this morning. Tachycardic HR > 114, blood pressure remains stable. Hemoglobin 10.8 with resolved leukocytosis. Potassium 3.3, replaced via protocol, repeat within normal limits. Currently on ertapenem and vancomycin as per ID. Plans for intubation today. Per RN, discussed with [facility] his sister and she would like everything possible to be done. Objective - Vital Signs Vital signs: Vital Signs Temp 100.6 F H 09/13/19 08:00 Pulse 114 H 09/13/19 08:04 Resp 40 H 09/13/19 08:00 BP 153/88 09/13/19 08:00 Pulse Ox 93 L 09/13/19 08:00 Intake & Output 09/12/19 09/13/19 09/13/19 18:59 06:59 18:59 Intake Total 1050 1240 Output Total 750 600 Balance 300 640 Weight 68.1 kg 70 kg Intake: IV 120 120 Sodium Chloride 0.9% 1, 120 120 000 ml @ 10 mls/hr IV . Q24H [facility] Rx#:[id number] Intake, IV Titration 250 Amount Vancomycin 1,250 mg In 250 Sodium Chloride 0.9% 250 ml @ 125 mls/hr IVPB Q12H [facility] Rx#:[id number] Tube Feeding 780 780 Other 150 90 Output: Urine 750 600 Other: Voiding Method Indwelling Catheter Indwelling Catheter - Exam General: [non toxic], [cachectic], [appears at stated age], [8 L high flow nasal cannula] Derm: [warm], [dry] Head: [atraumatic], [normocephalic], [symmetric] Eyes: [no lid lag], [anicteric sclera] Mouth: [no lip lesion], [mucus membranes moist] Cardiovascular: [S1S2 reg], [tachycardic], [positive DP pulse bilateral], Lungs: [Coarse breath sounds bilateral], [no rhonchi, no rales] , [respiratory rate in the 30-40s with shallow breathing using accessory muscles] Abdominal: [soft], [ nontender to palpation], [no guarding], [no appreciable organomegaly], [PEG tube left upper quadrant] Ext: [no gross muscle atrophy], [no edema], [bilateral upper and lower extremity contractures] Neuro: [Unable to assess] Psych: [Unable to assessment] - Labs CBC & Chem 7: 09/13/19 04:41 09/13/19 09:13 Labs: Abnormal Lab Results - Last 24 Hours (Table) 09/12/19 09/12/19 09/13/19 Range/Units 12:04 18:09 00:09 Hgb (13.0-17.5) gm/dL Hct (39.0-53.0) % MCH (25.0-35.0) pg MCHC (31.0-37.0) g/dL RDW (11.5-15.5) % Sodium (137-145) mmol/L Potassium (3.5-5.1) mmol/L Chloride (98-107) mmol/L BUN (9-20) mg/dL Creatinine (0.66-1.25) mg/dL Glucose (74-99) mg/dL POC Glucose (mg/dL) 137 H 130 H 160 H (75-99) mg/dL 09/13/19 09/13/19 09/13/19 Range/Units 04:41 04:41 05:46 Hgb 10.8 L (13.0-17.5) gm/dL Hct 36.3 L (39.0-53.0) % MCH 24.5 L (25.0-35.0) pg MCHC 29.7 L (31.0-37.0) g/dL RDW 17.8 H (11.5-15.5) % Sodium 149 H (137-145) mmol/L Potassium 3.3 L (3.5-5.1) mmol/L Chloride 118 H (98-107) mmol/L BUN 22 H (9-20) mg/dL Creatinine 0.59 L (0.66-1.25) mg/dL Glucose 121 H (74-99) mg/dL POC Glucose (mg/dL) 125 H (75-99) mg/dL Microbiology - Last 24 Hours (Table) 09/12/19 04:41 Blood Culture - Preliminary Blood No Growth after 24 hours 09/11/19 17:12 Blood Culture - Preliminary Blood No Growth after 24 hours 09/10/19 04:58 Blood Culture Gram Stain - Final Blood Blood Culture - Final Methicillin resist S. aureus 09/08/19 16:35 Blood Culture Gram Stain - Final Blood Blood Culture - Final Methicillin resist S. aureus Assessment and Plan Assessment: Sepsis related to aspiration pneumonia and UTI Acute hypoxic respiratory failure due to above Diarrhea Urinary tract infection with history of ESBL and pseudomonal infection related to chronic Stein catheter Hypokalemia Multiple sclerosis with chronic debility and contractures History of DVT Hypertension Patient meets sepsis criteria. T-max 103 F, heart rate in the 140s, tachypnic o n admission. Leukocytosis of 12.9 on September 09, now resolved. Lactic acid negative. Influenza negative. Blood culture positive MRSA. Chest x-ray on admission showing right-sided infiltrate, left lower lobe pneumonia. Urine culture positive for Proteus and E. coli sensitive to ertapenem. Repeat blood cultures prelim negative at 24 hours. Plans: Continue vancomycin and ertapenem. Follow repeat blood cultures. Robitussin as needed for cough. DuoNeb scheduled for shortness of breath and wheezing. Scopolamine patch for secretions. Telemetry monitoring. Follow sputum culture. Follow ID and pulmonology recommendations. Plans to intubate today. ABG this morning points towards respiratory alkalosis. Plans: Management as above. Plans to intubate today. Will likely need trach. C. diff negative. Plans: Symptomatic management. History of ESBL. Urinalysis shows large leukocyte esterase, urine culture shows Proteus mirabilis and E. coli. Plans: Continue IV antibiotics as above. Potassium 3.3. Plans: Replace via protocol. Repeat BMP. Family adamant about full CODE STATUS. Plans: Continue amantadine. Continue supportive treatment. Heparin for DVT prophylaxis. Social work consulted for return [facility]. Plans: DVT prophylaxis. BP 153/88. Plans: Continue metoprolol. Monitor vitals, adjust medications as necessary. [Patient admitted for sepsis related to aspiration pneumonia. Also has UTI with history of ESBL and pseudomonal/E. coli infections. Will be intubated today and require tracheostomy and LTAC. Prognosis extremely guarded at this time. Pulmonology, ID on board.]
[2019-09-13] MEDS: PROPOFOL 1,000 MG in EMPTY BAG 1 BAG IV SCH ×2 (10:28→20:38)
--- NOTE | 2019-09-13 11:51 | XR ---
EXAMINATION TYPE: XR chest 1V portable DATE OF EXAM: 09/13/2019 HISTORY: sob . REFERENCE: Previous study of earlier today. FINDINGS: The patient has been intubated. ET tube is in good position with its tip 3.5 cm above the c nick. An NG tube is been passed and its tip is coiled in the stomach. A left internal jugular cathet er is been placed and its tip is in the right atrium. There continues to be left-sided airspace disease. There is vascular congestion and pulmonary edema. There is blunting of the right CP angle I cannot exclude a small right effusion. IMPRESSION: 1. SATISFACTORY TUBE POSITION. 2. CONTINUING RIGHT BASILAR AIRSPACE DISEASE. 3. CONCOMITANT FINDINGS SUGGESTING SUPERIMPOSED PULMONARY EDEMA.
[2019-09-13 12:02] LABS: Glucose,Whole Blood 126 mg/dL (75-99)
--- NOTE | 2019-09-13 12:21 | PCN ---
PROCEDURE NOTE PROCEDURE PERFORMED: Left internal jugular triple-lumen catheter. TRIPLE LUMEN CATHETER PLACEMENT: Indication: Hemodynamic monitoring/Intravenous access. PREOP: Administration of fluids and pressors. POSTOP DIAGNOSIS: Administration of fluids and pressors. DESCRIPTION OF PROCEDURE: A time-out was completed verifying correct patient, procedure, site, positioning, and implant(s) or special equipment if applicable. The patient was placed in a dependent position appropriate for triple lumen catheter placement based on the vein to be cannulated. The patient's left neck was prepped and draped in sterile fashion. 1% Lidocaine was used to anesthetize the surrounding skin area. A triple lumen 9F Cordis catheter was introduced into the internal jugular vein using Seldinger technique. The catheter was threaded smoothly over the guide wire and appropriate blood return was obtained. Each lumen of the catheter was evacuated of air and flushed with sterile saline. The catheter was then sutured in place to the skin and a sterile dressing applied. Perfusion to the extremity distal to the point of catheter insertion was checked and found to be adequate. We did a posterior approach. There was no immediate complication. There was good blood return from all 3 ports. The patient tolerated the procedure well. The catheter was sutured in place. A chest x-ray was done. The tip of the catheter was seen in the superior vena cava. A sterile dressing was applied by the nurse. There was no immediate complication. X-rays were done. MMWOLF / LARRY: [id number] /
--- NOTE | 2019-09-13 12:31 | PCN ---
PROCEDURE NOTE PROCEDURE PERFORMED: Emergent intubation. PREOP DIAGNOSIS: Respiratory failure. POSTOP DIAGNOSIS: Respiratory failure. DIE CUTTER OPERATOR: Dr. Hawkins. Dr. Angela Hendrix. DESCRIPTION OF PROCEDURE: The patient was sedated with 2 mg of Ativan, 5 mg of morphine sulfate and then received 3 mL of succinylcholine. We did a rapid sequence intubation using #8 endotracheal tube. We used a standard laryngoscope with a #3 Sandor blade. The tube was seen to be going through the glottic opening. There were bilateral breath sounds. There was also good color change on the qualitative capnographic monitor. The tube was secured. The patient was connected to the ventilator. There was no immediate complications. The patient was stable throughout the procedure. The tube was secured by Respiratory therapy. There were no immediate complications or problems. A chest x-ray was ordered as well. MMHARPALL / ARMANDON: [id number] /
--- NOTE | 2019-09-13 12:31 | PCN ---
PROCEDURE NOTE ARTERIAL LINE PLACEMENT: SUPERVISOR ENGRAVING: Dr. Hawkins and Dr. Hendrix. Indications: Hemodynamic monitoring. A time-out was completed verifying correct patient, procedure, site, positioning, and implant(s) or special equipment if applicable. Porfirio's test was performed to ensure adequate perfusion. The patient's right wrist was prepped and draped in sterile fashion. 1% Lidocaine was used to anesthetize the area. An 18G Arrow arterial line was introduced into the radial artery. The catheter was threaded over the guide wire and the needle was removed with appropriate pulsatile blood return. Blood loss was minimal. The catheter was then sutured in place to the skin and a sterile dressing applied. Perfusion to the extremity distal to the point of catheter insertion was checked and found to be adequate. The patient tolerated the procedure well and there were no complications. There was good blood return and waveform. There was good blood pressure reading on the monitor. The catheter was sutured in place. Sterile dressing was applied by the nurse. MMODL / IJN: [id number] / [facility]PITALSonu
--- NOTE | 2019-09-13 12:31 | PCN ---
PROCEDURE NOTE PROCEDURE PERFORMED: Bedside bronchoscopy. PREOP DIAGNOSES: Respiratory failure, pneumonia, retained secretions. POSTOP DIAGNOSES: Respiratory failure, pneumonia, retained secretions. OPERATORS: Dr. Hawkins and Dr. Hendrix. DESCRIPTION OF PROCEDURE: The procedure took place in room 258 in the ICU. There was informed consent and universal timeout. The patient was sedated with propofol and paralyzed with Nimbex. The bronchoscope was inserted through the bronchoscope adapter connected to the endotracheal tube. We ensured that the endotracheal tube was above the tracheal stephany. We went down to the tracheal stephany. The right and left mainstem were topicalized. There were thick secretions noted throughout. We evaluated the right upper lobe and its 3 segments, right middle lobe and its 2 segments, right lower lobe and its 5 segments, the left upper lobe proper and its 2 segments, the lingula and its 2 segments and the left lower lobe and its 4 segments. There was diffuse bronchitis throughout. There was diffuse bronchial erythema and hyperemia. There were thick secretions noted throughout. The secretions were suctioned. Next, the bronchoscope was wedged into the right middle lobe. The BAL took place. The fluid will be sent for analysis. The patient tolerated the procedure well. The patient was well sedated and paralyzed during the procedure, receiving 100% oxygen. His saturations were always above 95%. Again, there was no immediate complication. The bronchoscope was withdrawn. MMODL / IJN: [id number] /
[2019-09-13 12:44] LABS: ABG Base Excess 4.2 mmol/L; ABG HCO3 29 mmol/L (21-25); ABG Oxygen Saturation 99.5 % (94-97); ABG PCO2 44 mmHg (35-45); ABG PH 7.42 (7.35-7.45); ABG PO2 196 mmHg (83-108); ABG TCO2 30 mmol/L (19-24); Allen Test Performed? Yes
[2019-09-13] MEDS ORDERED: SODIUM CHLORIDE 0.9% 2,000 ML IV ONE (13:11)
[2019-09-13 13:28] LABS: Appearance,BF Cloudy; Color,BF Pink; Nucleated Cells, Body Fluid 389 /uL; RBC, Body Fluid 528 /uL
[2019-09-13 13:33] LABS: Mononuclear WBC,Body Fluid 66 %; Polynuclear WBC,Body Fluid 34 %; Total Cells Counted,Body Fluid 100
--- NOTE | 2019-09-13 13:43 | XR ---
EXAMINATION TYPE: XR chest 1V DATE OF EXAM: 09/13/2019 HISTORY: PNA. REFERENCE: Previous study dated 09/11/2019. FINDINGS: There is right basilar atelectasis. Heart size is within normal limits. There is pulmonary vascular congestion and interstitial change. IMPRESSION: 1. CONTINUING RIGHT BASILAR ATELECTASIS. 2. FINDINGS CONSISTENT WITH CONGESTIVE HEART FAILURE.
[2019-09-13] MEDS: AMANTADINE HCL 100 MG/10 ML CUP PO SCH ×2 (14:41→21:14)
[2019-09-13] MEDS: BACLOFEN 10 MG TAB PEG/G-TUBE SCH ×3 (14:42→21:14)
[2019-09-13] MEDS: ASCORBIC ACID 500 MG TAB PEG/G-TUBE SCH (14:42)
[2019-09-13] MEDS: METOPROLOL TARTRATE 50 MG TAB PEG/G-TUBE SCH ×2 (14:42→21:13)
[2019-09-13] MEDS: CHOLECALCIFEROL 1,000 UNIT TAB PEG/G-TUBE SCH (14:42)
[2019-09-13] MEDS: OXYBUTYNIN CHLORIDE 5 MG TAB PEG/G-TUBE SCH ×3 (14:43→21:14)
[2019-09-13] MEDS: HEPARIN SODIUM,PORCINE 5,000 UNIT/ML 1 ML VIAL SQ SCH ×2 (14:43→21:14)
[2019-09-13] MEDS: PANTOPRAZOLE SODIUM 40 MG GRANULE PKT PEG/G-TUBE SCH (14:43)
[2019-09-13] MEDS ORDERED: Potassium Replacement Protocol 1 EACH MISC MISCELLANE PRN (15:19)
[2019-09-13] MEDS: ERTAPENEM 1 GM in SODIUM CHLORIDE 0.9% 50 ML IVPB SCH (16:18)
[2019-09-13] MEDS: NOREPINEPHRINE 4 MG in SODIUM CHLORIDE 0.9% 250 ML IV SCH (18:40)
[2019-09-13] MEDS: CHLORHEXIDINE GLUCONATE 15 ML CUP MUCOUS MEM SCH (21:14)
[2019-09-13] MEDS ORDERED: POTASSIUM BICARBONATE/CIT AC 20 MEQ TABLET.EFF NG-TUBE SCH (23:00)
[2019-09-14 00:11] LABS: Glucose,Whole Blood 126 mg/dL (75-99)
[2019-09-14] MEDS ORDERED: POTASSIUM BICARBONATE/CIT AC 20 MEQ TABLET.EFF NG-TUBE SCH (01:00)
[2019-09-14] MEDS: SODIUM CHLORIDE 0.9% 1,000 ML IV SCH (04:56)
[2019-09-14 05:02] LABS: ABG Base Excess 3.9 mmol/L; ABG HCO3 27 mmol/L (21-25); ABG Oxygen Saturation 98.5 % (94-97); ABG PCO2 35 mmHg (35-45); ABG PO2 97 mmHg (83-108); ABG TCO2 28 mmol/L (19-24); Allen Test Performed? Yes
[2019-09-14 05:14] LABS: Anisocytosis Slight; HCT 27.3 % (39.0-53.0); Hypochromasia Marked; MCH 26.1 pg (25.0-35.0); MCHC 31.4 g/dL (31.0-37.0); Mean Platelet Volume 8.1; Platelet Count 295 k/uL (150-450); RBC 3.29 m/uL (4.30-5.90); RDW 17.6 % (11.5-15.5); WBC 8.1 k/uL (3.8-10.6)
[2019-09-14 05:16] LABS: HGB 8.6 gm/dL (13.0-17.5)
[2019-09-14 05:23] LABS: African American GFR (CKD) >90 (>60 ml/min/1.73 sqM); Anion Gap 2 mmol/L; Blood Urea Nitrogen 21 mg/dL (9-20); Calcium 8.2 mg/dL (8.4-10.2); Carbon Dioxide 27 mmol/L (22-30); Chloride 119 mmol/L (98-107); Glucose 143 mg/dL (74-99); Non-African American GFR(CKD) >90 (>60 ml/min/1.73 sqM); Potassium 4.1 mmol/L (3.5-5.1); Sodium 148 mmol/L (137-145)
[2019-09-14] MEDS: VANCOMYCIN 1,250 MG in SODIUM CHLORIDE 0.9% 250 ML IVPB SCH ×2 (05:34→18:22)
[2019-09-14 06:08] LABS: Glucose,Whole Blood 147 mg/dL (75-99)
--- NOTE | 2019-09-14 06:10 | XR ---
EXAMINATION TYPE: XR chest 1V portable DATE OF EXAM: 09/14/2019 HISTORY: Tube placement. REFERENCE: Previous study dated 09/13/2019. FINDINGS: The patient is ET tube remains in place, unchanged in appearance. A left internal jugular c atheter is in place. Its tip is in the right atrium. I can no longer visualized patient is NG tube an d presumably this is been removed. There is worsening right basilar airspace disease. The heart is not enlarged. I suspect small, bilate ral effusions. IMPRESSION: WORSENING RIGHT BASILAR AIRSPACE DISEASE.
--- NOTE | 2019-09-14 07:56 | P.PN ---
Subjective Progress Note Date: 09/14/19 Principal diagnosis: Aacute hypoxemic respiratory failure secondary to acute pneumonia suspect aspiration. This is 59-year-old white male patient of [facility] a local [facility], with the history of severe MS, poor baseline functioning status, chronic contractures of lower extremities, nonambulatory, patient is essentially bedridden and nonverbal. We have seen patient in consultation during his previous admissions for complications related to sepsis secondary to recurrent urinary tract infections related to Pseudomonas, gram-negative bacteremia, ESBL producing E. coli in the urine. Most recently in July 2019 she was hospitalized for gram- negative sepsis with urine cultures positive for ESBL producing E. coli. Patient was treated, and improved, [facility] to the [facility] on 08/2019, yesterday on 09/08/2019 patient presents to the hospital per EMS e valuation of hypoxemia, less of breath, and audible congestion, he was placed on the 100% nonrebreather, pulse ox is 95%, she was febrile on admission, with a temp of 103.0F. Chest x-ray was taken showing mild right-sided perihilar infiltrate, and mild left lower lobe pneumonia that appears to be new since his last admission and his last chest x-ray on 07/31/2019. Admission lab work showed a white blood cell count of 9.4, hemoglobin of 13.8, sodium of 133, potassium is 5.0, chloride is 101, CO2 is 21, B1 is 21 creatinine 0.71, troponin was negative 1 is 0.016, urinalysis was positive for moderate amount of blood, large amount of leuks, white blood cells in clumps, rare bacteria, culture is pending, influenza screen was negative. Patient was started on a combination of Zosyn and vancomycin, breathing treatments, he remains nothing by mouth, he is being fed via the PEG tube. He seen this morning in the intensive care unit, remains on a percent nonrebreather mask, his cough is very weak, he is not able to clear secretions, and he is audibly congested. Given a dose of IV Lasix this morning for chest congestion, diuresed, however not sounding significantly better. On 09/10/2017 patient seen in follow-up in the intensive care unit, he is awake, appears less dyspneic on today's exam, FiO2 is down to 12 L per high flow nasal cannula, oxygen 98%, hemodynamically stable, tachypneic shallow breaths, but no acute distress, low-grade fevers, sinus tachycardia on the monitor. Still congested, although sounding better on today's exam, remains on antibiotics, she was switched from Zosyn to Invanz, continues on vancomycin, urine culture is positive for gram-negative bacilli, final cultures pending, blood cultures are positive for staph aureus. Today's labs have been reviewed including cell count 8.5, hemoglobin of 10.2, platelet count is 325, sodium is 139, potassium 3.4, c hloride is 112, CO2 is 18, BUN 17 creatinine 0.84. Registered dietitian has been consulted for evaluation of nutritional needs, and we anticipate starting tube feedings today, the continuous feeding on the feeding pump. His chest x- ray showed worsening new moderate interstitial pulmonary edema and the more confluent right-sided opacities. On 09/11/2019 patient seen in follow-up in the intensive care unit, patient is alert, he is nonverbal, she follows simple command, his cough is very weak, and patient is still audibly congested, and not able to bring up any phlegm, remains on high flow oxygen, currently at 12 L with a pulse ox of 97%, slightly tachycardic and the heart rate is ranging from 105-112 BPM, he is afebrile, hemodynamically patient is stable, tube feedings have been resumed, and she is on continuous tube feedings via feeding pump, with a viral AF at a rate is 65 ML per hour, with standard water flushes. Patient remains on antibiotics with Invanz and vancomycin, urine culture revealed 2 different gram-negative organisms with Proteus mirabilis and ESBL E. coli, both susceptible to ertapenem. Blood culture from 09/08/2019 was positive for Staphylococcus aureus, although blood cultures have been done, and so far are negative, his labs have been reviewed, showing white blood cell count of 13.5, hemoglobin of 10.8, sodium is 144, potassium is 3.3, chloride is 112, CO2 is 21, BUN is 15, creatinine 0.67. Patient has been having intermittent low-grade fevers, last one last night at 2000, with a temp of 99.8F, afebrile this morning. On 09/12/2019 patient seen in follow-up in the intensive care unit, he is on 10 L of oxygen, his pulse ox of 98%, a low-grade fever this morning, tachycardic in sinus mechanism with a rate of 112 BPM, patient was noted to be more short of breath, remains congested, his cough is weak, patient is unable to clear secretions, blood gas was then obtained on 11 L high flow oxygen, and review pO2 of 81, pCO2 of 35 and pH of 7.48. Patient remains on Invanz and vancomycin for evidence of ESBL E. coli, Proteus mirabilis in the urine culture, patient also had MRSA bacteremia, morning his follow-up blood culture from 09/10/2019 also shows presumptive MRSA, final culture is pending. Patient is on tube feedings, is having loose stools, stool for C. diff was sent and the results are pending at this time. Remains strict nothing by mouth. No new chest x-ray today, yesterday's chest x-ray showed scattered air space infiltrates bilaterally, without significant change from prior chest x-rays. the patient is seen today 09/13/2019 in follow-up in the intensive care unit. He is currentlyon 8 L high flow nasal cannula to maintain O2 saturations in the 90s. He is febrile at 100.6 axillary today. Tachycardic in the 110's.respira tory rate 40.respiratory rate 40. chest x-ray reveals bilateral scattered infiltrates. Urine culture positive for Proteus mirabilis and E. coli. Blood cultures positive for MRSA.white count 10.0. Hemoglobin 10.8. Sodium 149. Potassium 3.3. Creatinine 0.59. His 0.9 normal saline at 10 MLS per hour. Tube feedings with vital AF 1.2 at 65 ML's. he remains on vancomycin and ertapenem. The patient is seen today 09/14/2019 in follow-up in the intensive care unit. Yesterday he required intubation and mechanical ventilation. Bronchoscopy with BAL was performed as well. Currently settings are assist-control 16, title volume 450, FiO2 30% and a PEEP of 5. Morning blood gases revealed a PaO2 of 97, pCO2 35 and a pH is 7.5. That was on 40% FiO2. He has 0.9 normal saline at 10 MLS per hour. Norepinephrine at 1.5 mcg/m. Vital HF via PEG tube 65 ML's per hour which is goal. Propofol at 25 mcg/kg/m. Urine cultures were positive for Proteus mirabilis and E. coli. Blood cultures are positive for MRSA. Bronchial alveolar lavage cultures are pending. WBC 8.1. Hemoglobin 8.6. Sodium 148. Potassium 4.1. Creatinine 0.60. Glucose 147. He is receiving DuoNeb inhalations. Antibiotics in the form of vancomycin and ertapenem. Protonix for GI prophylaxis. Heparin for DVT prophylaxis. Objective - Vital Signs Vital signs: Vital Signs Temp 99.6 F 09/14/19 04:00 Pulse 94 09/14/19 07:00 Resp 26 H 09/14/19 07:00 BP 92/60 09/14/19 07:00 Pulse Ox 97 09/14/19 07:00 Intake & Output 09/13/19 09/14/19 09/14/19 18:59 06:59 18:59 Intake Total 2995.00 1560.237 75 Output Total 585 975 60 Balance 2410.00 585.237 15 Weight 71.2 kg Intake: IV 2440 120 10 0.9 NACL bolus 2000 Sodium Chloride 0.9% 1, 90 120 10 000 ml @ 10 mls/hr IV . Q24H [facility] Rx#:[id number] ertapenem 100 vancomycin 250 Intake, IV Titration 100.00 470.237 0 Amount Norepinephrine 4 mg In 120.237 0 Sodium Chloride 0.9% 250 ml @ 0.05 MCG/KG/MIN 13. 335 mls/hr IV .Q19H3M [facility] Rx#:[id number] Propofol 1,000 mg In 100.00 100 Empty Bag 1 bag @ Titrate IV .Q0M [facility] Rx#: [id number] Vancomycin 1,250 mg In 250 Sodium Chloride 0.9% 250 ml @ 125 mls/hr IVPB Q12H [facility] Rx#:[id number] Tube Feeding 455 780 65 Other 190 Output: Urine 585 975 60 Other: Voiding Method Indwelling Catheter Indwelling Catheter ABP, PAP, CO, CI - Last Documented Arterial Blood Pressure 90/52 - Exam GENERAL EXAM: Intubated, sedated, 59-year-old male patient, cachectic. HEAD: Normocephalic/atraumatic. EYES: Normal reaction of pupils, equal size. Conjunctiva pink, sclera white. NOSE: Clear with pink turbinates. THROAT: No erythema or exudates. NECK: No masses, no JVD, no thyroid enlargement, no adenopathy. CHEST: No chest wall deformity. Symmetrical expansion. LUNGS: Equal air entry with scattered rhonchi throughout CVS: Regular rate and rhythm, normal S1 and S2, no gallops, no murmurs, no rubs ABDOMEN: Soft, nontender. No hepatosplenomegaly, normal bowel sounds, no guarding or rigidity. PEG tube present in the left upper abdomen, exit site clean and dry EXTREMITIES: No clubbing, no edema, no cyanosis, 2+ pulses and upper and lower extremities. Chronic contractures involving upper and lower extremities MUSCULOSKELETAL: Chronic contractures, muscle wasting SPINE: No scoliosis or deformity SKIN: No rashes CENTRAL NERVOUS SYSTEM: Intubated, sedated. - Labs CBC & Chem 7: 09/14/19 05:00 09/14/19 05:00 Labs: Abnormal Lab Results - Last 24 Hours (Table) 09/13/19 09/13/19 09/13/19 Range/Units 11:50 12:40 23:59 RBC (4.30-5.90) m/uL Hgb (13.0-17.5) gm/dL Hct (39.0-53.0) % RDW (11.5-15.5) % ABG pH (7.35-7.45) ABG pO2 196 H (83-108) mmHg ABG HCO3 29 H (21-25) mmol/L ABG Total CO2 30 H (19-24) mmol/L ABG O2 Saturation 99.5 H (94-97) % Sodium (137-145) mmol/L Chloride (98-107) mmol/L BUN (9-20) mg/dL Creatinine (0.66-1.25) mg/dL Glucose (74-99) mg/dL POC Glucose (mg/dL) 126 H 126 H (75-99) mg/dL Calcium (8.4-10.2) mg/dL 09/14/19 09/14/19 09/14/19 Range/Units 04:58 05:00 05:00 RBC 3.29 L (4.30-5.90) m/uL Hgb 8.6 L D (13.0-17.5) gm/dL Hct 27.3 L (39.0-53.0) % RDW 17.6 H (11.5-15.5) % ABG pH 7.50 H (7.35-7.45) ABG pO2 (83-108) mmHg ABG HCO3 27 H (21-25) mmol/L ABG Total CO2 28 H (19-24) mmol/L ABG O2 Saturation 98.5 H (94-97) % Sodium 148 H (137-145) mmol/L Chloride 119 H (98-107) mmol/L BUN 21 H (9-20) mg/dL Creatinine 0.60 L (0.66-1.25) mg/dL Glucose 143 H (74-99) mg/dL POC Glucose (mg/dL) (75-99) mg/dL Calcium 8.2 L (8.4-10.2) mg/dL 09/14/19 Range/Units 05:57 RBC (4.30-5.90) m/uL Hgb (13.0-17.5) gm/dL Hct (39.0-53.0) % RDW (11.5-15.5) % ABG pH (7.35-7.45) ABG pO2 (83-108) mmHg ABG HCO3 (21-25) mmol/L ABG Total CO2 (19-24) mmol/L ABG O2 Saturation (94-97) % Sodium (137-145) mmol/L Chloride (98-107) mmol/L BUN (9-20) mg/dL Creatinine (0.66-1.25) mg/dL Glucose (74-99) mg/dL POC Glucose (mg/dL) 147 H (75-99) mg/dL Calcium (8.4-10.2) mg/dL Microbiology - Last 24 Hours (Table) 09/12/19 04:41 Blood Culture - Preliminary Blood No Growth after 48 hours 09/13/19 08:28 Gram Stain - Preliminary Sputum Sputum Culture - Preliminary 09/13/19 11:00 Gram Stain - Preliminary Bronchoalviolar Lavage - Right Bronchial Washings Culture - Preliminary 09/11/19 17:12 Blood Culture - Preliminary Blood No Growth after 48 hours 09/13/19 11:00 Fungal Culture - Preliminary Bronchoalviolar Lavage - Right 09/13/19 11:00 Acid Fast Bacilli Culture - Preliminary Bronchoalviolar Lavage - Right Assessment and Plan Assessment: #1. Acute hypoxemic respiratory failure requiring intubation and mechanical ventilation on 09/13/2019 related to acute pneumonia likely related to aspiration. Chest x-ray showed right-sided perihilar infiltrates, left lower lobe infiltrate. Status post bronchoscopy with BAL on 09/13/2019. #2. MRSA bacteremia #3. Suspect chronic aspiration, despite nothing by mouth status the patient is being fed by a PEG tube #4. Urinary tract infection related to ESBL E. coli and Proteus mirabilis #5. Severe multiple sclerosis with cognitive impairment, speech impairment, muscle atrophy, rigidity, chronic contractures, urinary and bowel incontinence gait impairment #6. History of recurrent urinary tract infections including with ESBL organisms and pseudomonal infections #7. Recent hospitalization in July for urinary tract infection with sepsis and urine culture was positive for ESBL E. coli #8. Chronic dysphagia, patient has a PEG tube #9. Multiple hospitalizations related to history of negative bacteremia, recurrent urinary tract infections #10. Poor baseline functioning status, patient is bedridden, and [facility] Plan: The patient was seen and evaluated by Dr. Hawkins. Chest x-ray, ABGs and labs all reviewed. Continue the current vent settings. Bronchial wash cultures pending. He remains on vancomycin and ertapenem for now. Continue tube feedings with free water. Protonix for GI prophylaxis. Heparin for DVT prophylaxis. We'll continue with full supportive care per his sister's instructions the patient is to remain a full code. He may need tracheostomy tube placement. We will continue to follow and make further recommendations based on his clinical status. Critical care time not including procedures 36 minutes. I, the cosigning physician, performed a history & physical examination of the patient. Lungs sounds few scattered rhonchi. Maintaining good O2 saturations in the 90s on 30% FiO2 on mechanical ventilator. I discussed the assessment and plan of care with my nurse practitioner, Angela Hendrix. I attest to the above note as dictated by her. Time with Patient: Greater than 30
[2019-09-14] MEDS: IPRATROPIUM-ALBUTEROL 3 ML NEB INHALATION SCH ×4 (08:19→18:56)
[2019-09-14] MEDS: METOPROLOL TARTRATE 50 MG TAB PEG/G-TUBE SCH (10:00)
[2019-09-14] MEDS: ERTAPENEM 1 GM in SODIUM CHLORIDE 0.9% 50 ML IVPB SCH (10:00)
[2019-09-14] MEDS: AMANTADINE HCL 100 MG/10 ML CUP PO SCH ×2 (10:00→20:30)
[2019-09-14] MEDS: HEPARIN SODIUM,PORCINE 5,000 UNIT/ML 1 ML VIAL SQ SCH ×2 (10:00→20:30)
[2019-09-14] MEDS: CHLORHEXIDINE GLUCONATE 15 ML CUP MUCOUS MEM SCH ×2 (10:00→20:30)
[2019-09-14] MEDS: OXYBUTYNIN CHLORIDE 5 MG TAB PEG/G-TUBE SCH ×3 (10:01→20:29)
[2019-09-14] MEDS: CHOLECALCIFEROL 1,000 UNIT TAB PEG/G-TUBE SCH (10:01)
[2019-09-14] MEDS: ASCORBIC ACID 500 MG TAB PEG/G-TUBE SCH (10:02)
[2019-09-14] MEDS: PANTOPRAZOLE SODIUM 40 MG GRANULE PKT PEG/G-TUBE SCH (10:02)
[2019-09-14] MEDS: BACLOFEN 10 MG TAB PEG/G-TUBE SCH ×3 (10:02→20:29)
[2019-09-14] MEDS: PROPOFOL 1,000 MG in EMPTY BAG 1 BAG IV SCH ×2 (10:07→20:30)
[2019-09-14 12:23] LABS: Glucose,Whole Blood 113 mg/dL (75-99)
--- NOTE | 2019-09-14 12:43 | P.PN ---
Subjective Progress Note Date: 09/14/19 Principal diagnosis: Aspiration pneumonia Patient was seen and examined. Nonverbal and noncommunicative. electively intubated yesterday by pulmonology. Ventilator settings tidal volume 450, FiO2 30%, PEEP of 5. Has epinephrine drip running at 0.1 mcg/kg/m. Blood pressure marginally low in the 100s systolic. Hemoglobin 8.6. Sodium 148. Currently on ertapenem and vancomycin as per ID. Objective - Vital Signs Vital signs: Vital Signs Temp 100.2 F H 09/14/19 08:00 Pulse 94 09/14/19 12:08 Resp 32 H 09/14/19 11:00 BP 108/64 09/14/19 11:00 Pulse Ox 98 09/14/19 11:00 Intake & Output 09/13/19 09/14/19 09/14/19 18:59 06:59 18:59 Intake Total 2995.00 1560.237 355.230 Output Total 585 975 310 Balance 2410.00 585.237 45.230 Weight 71.2 kg Intake: IV 2440 120 150 0.9 NACL bolus 2000 Sodium Chloride 0.9% 1, 90 120 50 000 ml @ 10 mls/hr IV . Q24H [facility] Rx#:[id number] ertapenem 100 100 vancomycin 250 Intake, IV Titration 100.00 470.237 10.230 Amount Norepinephrine 4 mg In 120.237 4.534 Sodium Chloride 0.9% 250 ml @ 0.05 MCG/KG/MIN 13. 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] Derm: [warm], [dry] Head: [atraumatic], [normocephalic], [symmetric] Eyes: [no lid lag], [anicteric sclera] Mouth: [no lip lesion], [mucus membranes moist] Cardiovascular: [S1S2 reg], [no murmur], [positive DP pulse bilateral], Lungs: [Coarse breath sounds bilateral, improved], [no rhonchi, no rales] Abdominal: [soft], [ nontender to palpation], [no guarding], [no appreciable o rganomegaly], [PEG tube left upper quadrant] Ext: [no gross muscle atrophy], [no edema], [bilateral upper and lower extremity contractures] Neuro: [Unable to assess] Psych: [Unable to assessment] - Labs CBC & Chem 7: 09/14/19 05:00 09/14/19 05:00 Labs: Abnormal Lab Results - Last 24 Hours (Table) 09/13/19 09/13/19 09/14/19 Range/Units 12:40 23:59 04:58 RBC (4.30-5.90) m/uL Hgb (13.0-17.5) gm/dL Hct (39.0-53.0) % RDW (11.5-15.5) % ABG pH 7.50 H (7.35-7.45) ABG pO2 196 H (83-108) mmHg ABG HCO3 29 H 27 H (21-25) mmol/L ABG Total CO2 30 H 28 H (19-24) mmol/L ABG O2 Saturation 99.5 H 98.5 H (94-97) % Sodium (137-145) mmol/L Chloride (98-107) mmol/L BUN (9-20) mg/dL Creatinine (0.66-1.25) mg/dL Glucose (74-99) mg/dL POC Glucose (mg/dL) 126 H (75-99) mg/dL Calcium (8.4-10.2) mg/dL 09/14/19 09/14/19 09/14/19 Range/Units 05:00 05:00 05:57 RBC 3.29 L (4.30-5.90) m/uL Hgb 8.6 L D (13.0-17.5) gm/dL Hct 27.3 L (39.0-53.0) % RDW 17.6 H (11.5-15.5) % ABG pH (7.35-7.45) ABG pO2 (83-108) mmHg ABG HCO3 (21-25) mmol/L ABG Total CO2 (19-24) mmol/L ABG O2 Saturation (94-97) % Sodium 148 H (137-145) mmol/L Chloride 119 H (98-107) mmol/L BUN 21 H (9-20) mg/dL Creatinine 0.60 L (0.66-1.25) mg/dL Glucose 143 H (74-99) mg/dL POC Glucose (mg/dL) 147 H (75-99) mg/dL Calcium 8.2 L (8.4-10.2) mg/dL 09/14/19 Range/Units 12:11 RBC (4.30-5.90) m/uL Hgb (13.0-17.5) gm/dL Hct (39.0-53.0) % RDW (11.5-15.5) % ABG pH (7.35-7.45) ABG pO2 (83-108) mmHg ABG HCO3 (21-25) mmol/L ABG Total CO2 (19-24) mmol/L ABG O2 Saturation (94-97) % Sodium (137-145) mmol/L Chloride (98-107) mmol/L BUN (9-20) mg/dL Creatinine (0.66-1.25) mg/dL Glucose (74-99) mg/dL POC Glucose (mg/dL) 113 H (75-99) mg/dL Calcium (8.4-10.2) mg/dL Microbiology - Last 24 Hours (Table) 09/12/19 04:41 Blood Culture - Preliminary Blood No Growth after 48 hours 09/13/19 08:28 Gram Stain - Preliminary Sputum Sputum Culture - Preliminary 09/13/19 11:00 Gram Stain - Preliminary Bronchoalviolar Lavage - Right Bronchial Washings Culture - Preliminary 09/11/19 17:12 Blood Culture - Preliminary Blood No Growth after 48 hours 09/13/19 11:00 Fungal Culture - Preliminary Bronchoalviolar Lavage - Right 09/13/19 11:00 Acid Fast Bacilli Culture - Preliminary Bronchoalviolar Lavage - Right Assessment and Plan Assessment: Sepsis related to aspiration pneumonia and UTI Acute hypoxic respiratory failure due to above Acute blood loss anemia Diarrhea Urinary tract infection with history of ESBL and pseudomonal infection related to chronic Stein catheter Multiple sclerosis with chronic debility and contractures History of DVT Hypertension Patient meets sepsis criteria. T-max 103 F, heart rate in the 140s, tachypnic on admission. Leukocytosis of 12.9 on September 09, now resolved. Lactic acid negative. Influenza negative. Blood culture positive MRSA. Chest x-ray on admission showing worsening right basilar airspace disease. Urine culture positive for Proteus and E. coli sensitive to ertapenem. Repeat blood cultures prelim negative at 48 hours. Plans: Continue vancomycin and ertapenem. Follow repeat blood cultures. Robitussin as needed for cough. DuoNeb scheduled for shortness of breath and wheezing. Scopolamine patch for secretions. Telemetry monitoring. Follow sputum culture. Follow ID and pulmonology recommendations. ABG this morning points towards respiratory alkalosis. Plans: Management as abo ve. Continue mechanical ventilation as per pulmonology recommendations. Will likely need trach. Hemoglobin 8.6. Likely due to acute blood loss from yesterday procedures. Plans: Repeat CBC tomorrow morning. C. diff negative. Plans: Symptomatic management. History of ESBL. Urinalysis shows large leukocyte esterase, urine culture shows Proteus mirabilis and E. coli. Plans: Continue IV antibiotics as above. Family adamant about full CODE STATUS. Plans: Continue amantadine. Continue supportive treatment. Heparin for DVT prophylaxis. Social work consulted for return back to [facility]. Plans: DVT prophylaxis. BP 108/64. Plans: Discontinue metoprolol due to hypotension. Monitor vitals, adjust medications as necessary. [Patient admitted for sepsis related to aspiration pneumonia. Also has UTI with history of ESBL and pseudomonal/E. coli infections. Prognosis extremely guarded at this time. Pulmonology, ID on board.]
[2019-09-14] MEDS: SCOPOLAMINE 1.5MG/72HR PATCH TRANSDERM SCH (16:27)
[2019-09-14 18:10] LABS: Glucose,Whole Blood 126 mg/dL (75-99)
[2019-09-14] MEDS: NOREPINEPHRINE 4 MG in SODIUM CHLORIDE 0.9% 250 ML IV SCH (18:22)
[2019-09-14] MEDS: ACETAMINOPHEN TAB 325 MG TAB PO PRN (20:29)
--- NOTE | 2019-09-14 23:10 | PN ---
PROGRESS NOTE DATE OF SERVICE: 09/14/2019. REASON FOR FOLLOWUP: 1. MRSA pneumonia and bacteremia. 2. UTI. INTERVAL HISTORY: The patient did go into respiratory distress yesterday and ended up getting intubated. The patient has been running a fever of 100.2-100.6. He is hemodynamically stable, not requiring pressor support, though FiO2 is current down to 30%. Still have the diarrhea worsening per the nurse taking care of the patient. PHYSICAL EXAMINATION: Blood pressure 117/60 with a pulse of 90, temperature of 98. General description is a middle-aged male lying in bed in no distress. Respiratory system: Unlabored breathing. Decreased breath sounds at the bases. No wheeze. Heart S1, S2. Regular rate and rhythm. Abdomen soft. No tenderness. Extremities: No edema of the feet. LABS: Hemoglobin is 8.6, white count 8.1. BUN of 21, creatinine 0.60. Blood cultures of 09/11, and 09/12 have been negative. DIAGNOSTIC IMPRESSION AND PLAN: Patient with MRSA bacteremia, source is likely pneumonia in this patient who did have worsening respiratory status requiring intubation. The patient's x-ray this morning does show worsening right basilar airspace disease. The patient is status post bronch and those cultures currently pending. May need to adjust antibiotic further if needed. Currently covered with vancomycin and Invanz to be continued. Continue supportive care. MMODL / IJN: [id number] /
[2019-09-15 00:18] LABS: Glucose,Whole Blood 113 mg/dL (75-99)
[2019-09-15] MEDS: IPRATROPIUM-ALBUTEROL 3 ML NEB INHALATION SCH ×7 (00:18→23:30)
[2019-09-15] MEDS: PROPOFOL 1,000 MG in EMPTY BAG 1 BAG IV SCH ×3 (01:37→19:05)
[2019-09-15 04:40] LABS: Anisocytosis Slight; HCT 26.2 % (39.0-53.0); HGB 8.1 gm/dL (13.0-17.5); Hypochromasia Marked; MCHC 30.8 g/dL (31.0-37.0); MCV 84.6 fL (80.0-100.0); Mean Platelet Volume 8.4; Platelet Count 299 k/uL (150-450); WBC 6.2 k/uL (3.8-10.6)
[2019-09-15 04:43] LABS: ABG Base Excess 1.5 mmol/L; ABG HCO3 25 mmol/L (21-25); ABG Oxygen Saturation 97.8 % (94-97); ABG PCO2 36 mmHg (35-45); ABG PH 7.46 (7.35-7.45); ABG PO2 92 mmHg (83-108); ABG TCO2 26 mmol/L (19-24); Allen Test Performed? Yes
[2019-09-15 04:50] LABS: African American GFR (CKD) >90 (>60 ml/min/1.73 sqM); Anion Gap 3 mmol/L; Blood Urea Nitrogen 19 mg/dL (9-20); Calcium 7.9 mg/dL (8.4-10.2); Carbon Dioxide 25 mmol/L (22-30); Chloride 118 mmol/L (98-107); Glucose 103 mg/dL (74-99); Non-African American GFR(CKD) >90 (>60 ml/min/1.73 sqM); Sodium 146 mmol/L (137-145)
[2019-09-15] MEDS ORDERED: VANCOMYCIN TROUGH DUE 1 EACH MISC MISCELLANE ONE (05:00)
[2019-09-15] MEDS: VANCOMYCIN 1,250 MG in SODIUM CHLORIDE 0.9% 250 ML IVPB SCH ×2 (06:01→17:04)
[2019-09-15] MEDS: SODIUM CHLORIDE 0.9% 1,000 ML IV SCH (06:02)
[2019-09-15 06:24] LABS: Glucose,Whole Blood 110 mg/dL (75-99)
[2019-09-15 06:48] LABS: Glucose,Whole Blood 128 mg/dL (75-99)
[2019-09-15] MEDS: NOREPINEPHRINE 4 MG in SODIUM CHLORIDE 0.9% 250 ML IV SCH (08:47)
--- NOTE | 2019-09-15 08:58 | P.PN ---
Subjective Progress Note Date: 09/15/19 On 09/15/2019 I'm seeing this patient in follow-up after being intubated on a mechanical ventilator. The patient was intubated on 09/13/2019 because of pneumonia and excessive respiratory secretions. Bronchoscopy was done and the cultures positive for staph aureus, possibly MRSA. Noted the patient possible cultures with MRSA and he had also ESBL producing E. coli in his urine and currently is on a combination of Invanz and vancomycin. He remains on a mechanical ventilator and assist control at the rate of 16 with a tidal volume of 450 and an FiO2 of down to 30% and a PEEP of 5. No major respiratory secretions today and amount of 67, last period pH is at 7.46 with a pCO2 of 35 and pO2 of 97. Chest x-ray still showing bilateral lower lobe pulmonary infiltrates more on the right side. He remains on sedation with propofol at 40 mics per KG per minute. He is on no pressors. He is receiving normal saline at the rate of 75. Receiving tube feeds with vital AF at the rate of 65 mL an hour. Producing adequate amount of urine output. He has F MS system and previous C. diff evaluation has been negative. He is afebrile for now. The repeat blood cultures on 09/12/2000 and he has been negative. CODE STATUS is full. Family is a guardian including the sister. He has a left IJ triple-lumen catheter. There is a right radial arterial line. Objective - Vital Signs Vital signs: Vital Signs Temp 98.9 F 09/15/19 04:00 Pulse 88 09/15/19 08:03 Resp 28 H 09/15/19 07:00 BP 122/74 09/15/19 07:00 Pulse Ox 96 09/15/19 07:00 Intake & Output 09/14/19 09/15/19 09/15/19 18:59 06:59 18:59 Intake Total 3575.466 3427.434 239.984 Output Total 710 1250 150 Balance 849.534 923.434 89.984 Weight 75.1 kg Intake: IV 675 1216 81 Sodium Chloride 0.9% 1, 575 900 75 000 ml @ 10 mls/hr IV . [facility]H [facility] Rx#:[id number] ertapenem 100 pressure bag 66 6 vancomycin 250 Intake, IV Titration 104.534 87.434 93.984 Amount Norepinephrine 4 mg In 4.534 Sodium Chloride 0.9% 250 ml @ 0.05 MCG/KG/MIN 13. 335 mls/hr IV .Q19H3M [facility] Rx#:[id number] Propofol 1,000 mg In 100.000 87.434 93.984 Empty Bag 1 bag @ Titrate IV .Q0M [facility] Rx#: [id number] Tube Feeding 780 780 65 Other 90 Output: Urine 710 1250 150 Other: Voiding Method Indwelling Catheter Indwelling Catheter ABP, PAP, CO, CI - Last Documented Arterial Blood Pressure 143/68 - Exam GENERAL EXAM: Intubated, sedated, 59-year-old male patient, cachectic. intubated on a mechanical ventilated and is calm and comfortable. HEAD: Normocephalic/atraumatic. EYES: Normal reaction of pupils, equal size. Conjunctiva pink, sclera white. NOSE: Clear with pink turbinates. THROAT: No erythema or exudates. NECK: No masses, no JVD, no thyroid enlargement, no adenopathy. CHEST: No chest wall deformity. Symmetrical expansion. LUNGS: Equal air entry with scattered rhonchi throughout CVS: Regular rate and rhythm, normal S1 and S2, no gallops, no murmurs, no rubs ABDOMEN: Soft, nontender. No hepatosplenomegaly, normal bowel sounds, no guarding or rigidity. PEG tube present in the left upper abdomen, exit site clean and dry EXTREMITIES: No clubbing, no edema, no cyanosis, 2+ pulses and upper and lower extremities. Chronic contractures involving upper and lower extremities MUSCULOSKELETAL: Chronic contractures, muscle wasting SPINE: No scoliosis or deformity SKIN: No rashes CENTRAL NERVOUS SYSTEM: Intubated, sedated.the patient has chronic contractures and muscle atrophy related to his MS both in the upper and lower extremities. Pupils are round 4 mm in size and sluggishly reactive to light. No facial asymmetry. - Labs CBC & Chem 7: 09/15/19 04:25 09/15/19 04:25 Labs: Abnormal Lab Results - Last 24 Hours (Table) 09/14/19 09/14/19 09/15/19 Range/Units 12:11 17:59 00:06 RBC (4.30-5.90) m/uL Hgb (13.0-17.5) gm/dL Hct (39.0-53.0) % MCHC (31.0-37.0) g/dL RDW (11.5-15.5) % ABG pH (7.35-7.45) ABG Total CO2 (19-24) mmol/L ABG O2 Saturation (94-97) % Sodium (137-145) mmol/L Chloride (98-107) mmol/L Creatinine (0.66-1.25) mg/dL Glucose (74-99) mg/dL POC Glucose (mg/dL) 113 H 126 H 113 H (75-99) mg/dL Calcium (8.4-10.2) mg/dL 09/15/19 09/15/19 09/15/19 Range/Units 04:25 04:25 04:40 RBC 3.10 L (4.30-5.90) m/uL Hgb 8.1 L (13.0-17.5) gm/dL Hct 26.2 L (39.0-53.0) % MCHC 30.8 L (31.0-37.0) g/dL RDW 18.0 H (11.5-15.5) % ABG pH 7.46 H (7.35-7.45) ABG Total CO2 26 H (19-24) mmol/L ABG O2 Saturation 97.8 H (94-97) % Sodium 146 H (137-145) mmol/L Chloride 118 H (98-107) mmol/L Creatinine 0.63 L (0.66-1.25) mg/dL Glucose 103 H (74-99) mg/dL POC Glucose (mg/dL) (75-99) mg/dL Calcium 7.9 L (8.4-10.2) mg/dL 09/15/19 09/15/19 Range/Units 06:12 06:36 RBC (4.30-5.90) m/uL Hgb (13.0-17.5) gm/dL Hct (39.0-53.0) % MCHC (31.0-37.0) g/dL RDW (11.5-15.5) % ABG pH (7.35-7.45) ABG Total CO2 (19-24) mmol/L ABG O2 Saturation (94-97) % Sodium (137-145) mmol/L Chloride (98-107) mmol/L Creatinine (0.66-1.25) mg/dL Glucose (74-99) mg/dL POC Glucose (mg/dL) 110 H 128 H (75-99) mg/dL Calcium (8.4-10.2) mg/dL Microbiology - Last 24 Hours (Table) 09/13/19 11:00 Gram Stain - Preliminary Bronchoalviolar Lavage - Right Bronchial Washings Culture - Preliminary Presumptive Staph aureus 09/13/19 08:28 Gram Stain - Preliminary Sputum Sputum Culture - Preliminary Gram Neg Bacilli 09/12/19 04:41 Blood Culture - Preliminary Blood No Growth after 72 hours 09/13/19 11:00 Acid Fast Bacilli Smear - Final Bronchoalviolar Lavage - Right Acid Fast Bacilli Culture - Preliminary 09/11/19 17:12 Blood Culture - Preliminary Blood No Growth after 72 hours Assessment and Plan Plan: #1. Acute hypoxemic respiratory failure requiring intubation and mechanical ventilation on 09/13/2019 . The patient has bilateral pneumonia and the primary cultures are showing staph aureus. The presentation is ready much consistent with staphylococcal pneumonia secondary septicemia. Currently on vancomycin. Currently intubated on a mechanical ventilator. Chest x-ray shows stable bilateral pulmonary infiltrates. #2. MRSA since secondary to above #3. Suspect chronic aspiration, despite nothing by mouth status the patient is being fed by a PEG tube #4. Urinary tract infection related to ESBL E. coli and Proteus mirabiliscurrently on IV Invanz #5. Severe multiple sclerosis with cognitive impairment, speech impairment, muscle atrophy, rigidity, chronic contractures, urinary and bowel incontinence gait impairment #6. History of recurrent urinary tract infections including with ESBL organisms and pseudomonal infections #7. Recent hospitalization in July for urinary tract infection with sepsis and urine culture was positive for ESBL E. coli #8. Chronic dysphagia, patient has a PEG tube #9. Multiple hospitalizations related to history of negative bacteremia, recurrent urinary tract infections #10. Poor baseline functioning status, patient is bedridden, and he resides in a half-way plan This patient will likely need a tracheostomy tube. Based on my conversation with the medical staff and respiratory therapy and the nursing staff his been taken care of this patient, the patient has been extremely weak unable to cough or new adequate pulmonary toileting. Based on his recurrent bouts of pneumonias and UTI and sepsis, I think is reasonable to proceed with a tracheostomy tube to secure his airway and assist with pulmonary toileting and weaning process. He already has a PEG tube in place. Probably is a chronic aspirated also. In any rate, we'll consult general surgery for a tracheostomy tube insertion. The patient's sister, the guardian has requested all measures to be done in terms of his medical care. For now, he is sedated. He is on no pressors. He is on broad-spectrum antibiotics. He is receiving supportive care. We'll continue to follow. Critically care evaluation more than 30 minutes. Time with Patient: Greater than 30
[2019-09-15] MEDS: ASCORBIC ACID 500 MG TAB PEG/G-TUBE SCH (09:04)
[2019-09-15] MEDS: PANTOPRAZOLE SODIUM 40 MG GRANULE PKT PEG/G-TUBE SCH (09:04)
[2019-09-15] MEDS: BACLOFEN 10 MG TAB PEG/G-TUBE SCH ×3 (09:04→20:24)
[2019-09-15] MEDS: OXYBUTYNIN CHLORIDE 5 MG TAB PEG/G-TUBE SCH ×3 (09:04→20:24)
[2019-09-15] MEDS: AMANTADINE HCL 100 MG/10 ML CUP PO SCH ×2 (09:04→20:23)
[2019-09-15] MEDS: CHOLECALCIFEROL 1,000 UNIT TAB PEG/G-TUBE SCH (09:04)
[2019-09-15] MEDS: HEPARIN SODIUM,PORCINE 5,000 UNIT/ML 1 ML VIAL SQ SCH ×2 (09:05→20:23)
[2019-09-15] MEDS: CHLORHEXIDINE GLUCONATE 15 ML CUP MUCOUS MEM SCH ×2 (09:05→20:22)
[2019-09-15] MEDS: ERTAPENEM 1 GM in SODIUM CHLORIDE 0.9% 50 ML IVPB SCH (09:44)
--- NOTE | 2019-09-15 09:51 | XR ---
EXAMINATION TYPE: XR chest 1V portable DATE OF EXAM: 09/15/2019 COMPARISON: 09/14/2019 HISTORY: Ventilatory dependent respiratory failure. TECHNIQUE: Single frontal view of the chest is obtained. FINDINGS: Redemonstration of a right basilar opacity abutting the hemidiaphragm. Stable diffuse inte rstitial prominence. Multiple left healed lateral rib fractures. Cardiomediastinal silhouette is stab le. Unchanged positioning of the endotracheal tube and left central venous catheter. No sizable pneum othorax. IMPRESSION: Stable right basilar airspace disease, likely pneumonia and mild diffuse interstitial ed estrella.
[2019-09-15 12:23] LABS: Glucose,Whole Blood 110 mg/dL (75-99)
--- NOTE | 2019-09-15 13:48 | P.GSCN ---
History of Present Illness Consult date: 09/15/19 Reason for Consult: trach Requesting physician: Naheed Pace History of present illness: CHIEF COMPLAINT: trach insertion HISTORY OF PRESENT ILLNESS: 59 year old male currently admitted to the intensive care unit secondary to bilateral pneumonia has been on mechanical ventilation since 09/13/2019. General surgery was consulted for tracheostomy placement. PAST MEDICAL HISTORY: See list. PAST SURGICAL HISTORY: See list. SOCIAL HISTORY: No illicit drug use. REVIEW OF SYSTEMS: Unable to obtain due to mechanical ventilation PHYSICAL EXAM: VITAL SIGNS: Reviewed. GENERAL: Well-developed in no acute distress-remains vented. HEENT: No sclera icterus. Extraocular movements grossly intact. Moist buccal mucosa. Head is atraumatic, normocephalic. ABDOMEN: Soft. Nondistended. Nontender. PEG tube noted. NEUROLOGIC: Alert and oriented. Cranial nerves II through XII grossly intact. ASSESSMENT: 1. Acute hypoxic respiratory failure requiring mechanical ventilation secondary to bilateral pneumonia PLAN: Continue tube feedings. Tube feedings to be stopped Sunday night Patient will be scheduled to tracheostomy on Sunday with Dr. Case Nurse practitioner note has been reviewed by physician. Signing provider agrees with the documented findings, assessment, and plan of care. Past Medical History Past Medical History: Deep Vein Thrombosis (DVT), GERD/Reflux, Hypertension, Musculoskeletal Disorder, Pneumonia, Renal Disease Additional Past Medical History / Comment(s): MS, cognitive impariment/ non verbal, NPO-peg tube,DVT-arm , IDC ,INCONT OF BOWEL. DYSARTHRIA/BETSY THRIA/DYSPHAGIA. BEDBOUND, RACHEL LIFT TO W/C, neurogenic bladder,m History of Any Multi-Drug Resistant Organisms: ESBL, MRSA Year Discovered:: 09/08/19 ESBL-E.coli; 09/08/19 MRSA MDRO Source:: Urine -ESBL; BLOOD MRSA Additional Past Surgical History / Comment(s): PEG TUBE, HX OF GASTROSTOMY, Past Anesthesia/Blood Transfusion Reactions: Unable to Obtain Past Psychological History: Depression Additional Psychological History / Comment(s): PT RESIDES AT [place] [phone] Smoking Status: Unknown if ever smoked Past Alcohol Use History: None Reported Past Drug Use History: None Reported - Past Family History Father Family Medical History: Unable to Obtain Additional Family Medical History / Comment(s): patient is nonverbal Mother Family Medical History: Unable to Obtain Additional Family Medical History / Comment(s): patient is nonverbal Medications and Allergies Home Medications Medication Instructions Recorded Confirmed Type Amantadine 50mg/5ml 100 mg PEG/G-TUBE Q12H 12/28/17 09/08/19 History Ascorbic Acid [Vitamin C] 250 mg PEG/G-TUBE DAILY 12/28/17 09/08/19 History Cholecalciferol [Vitamin D3 (25 1,000 unit PEG/G-TUBE DAILY 12/28/17 09/08/19 History Mcg = 1000 Iu)] Docusate Oral Soln [Colace Oral 200 mg PEG/G-TUBE BID 12/28/17 09/08/19 History Soln] Scopolamine 1.5MG/72Hr Patch 1 patch TRANSDERM Q72H 12/28/17 09/08/19 History [TransDerm Scop] guaiFENesin [guaiFENesin Oral 200 mg PEG/G-TUBE Q6H PRN 12/28/17 09/08/19 History Solution] Baclofen 5 mg PEG/G-TUBE TID 04/07/18 09/08/19 History Furosemide [Lasix] 20 mg PEG/G-TUBE DAILY 05/24/18 09/08/19 History Acetaminophen Oral Susp [Tylenol] 320 mg PEG/G-TUBE Q6H PRN 01/26/19 09/08/19 History Omeprazole Magnesium [PriLOSEC 20 mg PEG/G-TUBE DAILY 01/26/19 09/08/19 History Oral Susp] carBAMazepine [carBAMazepine Oral 300 mg PEG/G-TUBE Q8H 04/15/19 09/08/19 History Susp] Cranberry Fruit Extract [Cranberry] 500 mg PEG/G-TUBE Q12H 06/03/19 09/08/19 History Metoprolol Tartrate [Lopressor] 50 mg PEG/G-TUBE BID 07/29/19 09/08/19 History Ipratropium-Albuterol Nebulize 3 ml INHALATION RT-QID ampul.neb 08/04/19 Rx [Duoneb 0.5 mg-3 mg/3 ml Soln] Oxybutynin Chloride [Ditropan Oral 5 mg PEG/G-TUBE TID 09/08/19 09/08/19 History Soln] Polyethylene Glycol 3350 [Miralax] 17 gm PO HS 09/08/19 09/08/19 History Allergies Allergy/AdvReac Type Severity Reaction Status Date / Time meropenem [From Merrem] Allergy Rash/Hives Verified 09/08/19 19:11 Surgical - Exam Vital Signs Pulse Resp BP Pulse Ox 139 H 31 H 144/100 95 09/08/19 15:35 09/08/19 15:35 09/08/19 15:35 09/08/19 15:35 Results - Labs 09/15/19 04:25 09/15/19 04:25 Abnormal Lab Results - Last 24 Hours (Table) 09/14/19 09/15/19 09/15/19 Range/Units 17:59 00:06 04:25 RBC 3.10 L (4.30-5.90) m/uL Hgb 8.1 L (13.0-17.5) gm/dL Hct 26.2 L (39.0-53.0) % MCHC 30.8 L (31.0-37.0) g/dL RDW 18.0 H (11.5-15.5) % ABG pH (7.35-7.45) ABG Total CO2 (19-24) mmol/L ABG O2 Saturation (94-97) % Sodium (137-145) mmol/L Chloride (98-107) mmol/L Creatinine (0.66-1.25) mg/dL Glucose (74-99) mg/dL POC Glucose (mg/dL) 126 H 113 H (75-99) mg/dL Calcium (8.4-10.2) mg/dL 09/15/19 09/15/19 09/15/19 Range/Units 04:25 04:40 06:12 RBC (4.30-5.90) m/uL Hgb (13.0-17.5) gm/dL Hct (39.0-53.0) % MCHC (31.0-37.0) g/dL RDW (11.5-15.5) % ABG pH 7.46 H (7.35-7.45) ABG Total CO2 26 H (19-24) mmol/L ABG O2 Saturation 97.8 H (94-97) % Sodium 146 H (137-145) mmol/L Chloride 118 H (98-107) mmol/L Creatinine 0.63 L (0.66-1.25) mg/dL Glucose 103 H (74-99) mg/dL POC Glucose (mg/dL) 110 H (75-99) mg/dL Calcium 7.9 L (8.4-10.2) mg/dL 09/15/19 09/15/19 Range/Units 06:36 12:12 RBC (4.30-5.90) m/uL Hgb (13.0-17.5) gm/dL Hct (39.0-53.0) % MCHC (31.0-37.0) g/dL RDW (11.5-15.5) % ABG pH (7.35-7.45) ABG Total CO2 (19-24) mmol/L ABG O2 Saturation (94-97) % Sodium (137-145) mmol/L Chloride (98-107) mmol/L Creatinine (0.66-1.25) mg/dL Glucose (74-99) mg/dL POC Glucose (mg/dL) 128 H 110 H (75-99) mg/dL Calcium (8.4-10.2) mg/dL Microbiology - Last 24 Hours (Table) 09/13/19 11:00 Gram Stain - Preliminary Bronchoalviolar Lavage - Right Bronchial Washings Culture - Preliminary Presumptive Staph aureus 09/13/19 08:28 Gram Stain - Preliminary Sputum Sputum Culture - Preliminary Gram Neg Bacilli 09/12/19 04:41 Blood Culture - Preliminary Blood No Growth after 72 hours 09/13/19 11:00 Acid Fast Bacilli Smear - Final Bronchoalviolar Lavage - Right Acid Fast Bacilli Culture - Preliminary 09/11/19 17:12 Blood Culture - Preliminary Blood No Growth after 72 hours Diabetes panel 09/15/19 Range/Units 04:25 Sodium 146 H (137-145) mmol/L Potassium 4.0 (3.5-5.1) mmol/L Chloride 118 H (98-107) mmol/L Carbon Dioxide 25 (22-30) mmol/L BUN 19 (9-20) mg/dL Creatinine 0.63 L (0.66-1.25) mg/dL Glucose 103 H (74-99) mg/dL Calcium 7.9 L (8.4-10.2) mg/dL Calcium panel 09/15/19 Range/Units 04:25 Calcium 7.9 L (8.4-10.2) mg/dL Pituitary panel 09/15/19 Range/Units 04:25 Sodium 146 H (137-145) mmol/L Potassium 4.0 (3.5-5.1) mmol/L Chloride 118 H (98-107) mmol/L Carbon Dioxide 25 (22-30) mmol/L BUN 19 (9-20) mg/dL Creatinine 0.63 L (0.66-1.25) mg/dL Glucose 103 H (74-99) mg/dL Calcium 7.9 L (8.4-10.2) mg/dL Adrenal panel 09/15/19 Range/Units 04:25 Sodium 146 H (137-145) mmol/L Potassium 4.0 (3.5-5.1) mmol/L Chloride 118 H (98-107) mmol/L Carbon Dioxide 25 (22-30) mmol/L BUN 19 (9-20) mg/dL Creatinine 0.63 L (0.66-1.25) mg/dL Glucose 103 H (74-99) mg/dL Calcium 7.9 L (8.4-10.2) mg/dL
--- NOTE | 2019-09-15 15:24 | P.PN ---
Subjective Progress Note Date: 09/15/19 Principal diagnosis: Aspiration pneumonia 59-year-old male with PMH of severe end-stage MS with poor baseline functioning and contractures of all extremities, bedridden and nonverbal with history of recurrent ESBL and pseudomonal UTI sepsis, resident of [facility] is transferred to [facility] for hypoxemia and audible breath sounds. There was some concerns for aspiration. Patient met sepsis criteria with T-max of 103 Fahrenheit, leukocytosis of 12.9, heart rate in the 140s and tachypnea. In the ED, he underwent extensive evaluation. Chest x-ray showed right-sided perihilar infiltrate and left lower lobe pneumonia. He was admitted for further workup and treatment. Patient was initially placed on high flow nasal cannula. Urinalysis was positive for large leukocyte esterase. Lactic acid was negative. Influenza was negative. Patient was started on vancomycin and ertapenem and ID was consulted along with pulmonology. Blood cultures came back positive for MRSA. His respiratory status continued to worsen and plans were made to intubate the patient. Patient was intubated on 09/13/2019 and bronchoalveolar lavage was performed. Post intubation, patient was started on epinephrine drip to maintain blood pressure which was eventually weaned off. BAL cultures are currently back growing gram-negative bacilli. His power of prosecuting attorney is his [facility] er who has been adamant about the full CODE STATUS of this patient. There are current plans for general surgery to perform tracheostomy for this patient. Social work is onboard for LTAC placement. Patient was seen and examined. Nonverbal and noncommunicative. Intubated and sedated . Ventilator settings tidal volume 450, FiO2 30%, PEEP of 5, rate 26. Epinephrine drip discontinued. Hemoglobin 8.1. Sodium 146. Currently on ertapenem and vancomycin as per ID. Objective - Vital Signs Vital signs: Vital Signs Temp 98.4 F 09/15/19 12:00 Pulse 84 09/15/19 14:00 Resp 28 H 09/15/19 14:00 BP 120/72 09/15/19 14:00 Pulse Ox 96 09/15/19 14:00 Intake & Output 09/14/19 09/15/19 09/15/19 18:59 06:59 18:59 Intake Total 1341.114 0917.434 1475.947 Output Total 710 1250 1035 Balance 849.534 923.434 440.947 Weight 75.1 kg 75.1 kg Intake: IV 675 1216 698 Ertapenem 1 gm In Sodium 50 Chloride 0.9% 50 ml @ 100 mls/hr IVPB DAILY [facility] Rx #:[id number] Sodium Chloride 0.9% 1, 575 900 600 000 ml @ 10 mls/hr IV . Q24H [facility] Rx#:[id number] ertapenem 100 pressure bag 66 48 vancomycin 250 Intake, IV Titration 104.534 87.434 137.947 Amount Norepinephrine 4 mg In 4.534 Sodium Chloride 0.9% 250 ml @ 0.05 MCG/KG/MIN 13. 335 mls/hr IV .Q19H3M [facility] Rx#:[id number] Propofol 1,000 mg In 100.000 87.434 137.947 Empty Bag 1 bag @ Titrate IV .Q0M [facility] Rx#: [id number] Tube Feeding 780 780 520 Other 90 120 Output: Urine 710 1250 1035 Other: Voiding Method Indwelling Catheter Indwelling Catheter Indwelling Catheter ABP, PAP, CO, CI - Last Documented Arterial Blood Pressure 125/61 - Exam General: [non toxic], [cachectic], [appears at stated age], [intubated mechanically ventilated] Derm: [warm], [dry] Head: [atraumatic], [normocephalic], [symmetric] Eyes: [no lid lag], [anicteric sclera] Mouth: [no lip lesion], [mucus membranes moist] Cardiovascular: [S1S2 reg], [no murmur], [positive DP pulse bilateral], Lungs: [Coarse breath sounds bilateral, improved], [no rhonchi, no rales] Abdominal: [soft], [ nontender to palpation], [no guarding], [no appreciable organomegaly], [PEG tube left upper quadrant] Ext: [no gross muscle atrophy], [no edema], [bilateral upper and lower extremity contractures] Neuro: [Unable to assess] Psych: [Unable to assessment] - Labs CBC & Chem 7: 09/15/19 04:25 09/15/19 04:25 Labs: Abnormal Lab Results - Last 24 Hours (Table) 09/14/19 09/15/19 09/15/19 Range/Units 17:59 00:06 04:25 RBC 3.10 L (4.30-5.90) m/uL Hgb 8.1 L (13.0-17.5) gm/dL Hct 26.2 L (39.0-53.0) % MCHC 30.8 L (31.0-37.0) g/dL RDW 18.0 H (11.5-15.5) % ABG pH (7.35-7.45) ABG Total CO2 (19-24) mmol/L ABG O2 Saturation (94-97) % Sodium (137-145) mmol/L Chloride (98-107) mmol/L Creatinine (0.66-1.25) mg/dL Glucose (74-99) mg/dL POC Glucose (mg/dL) 126 H 113 H (75-99) mg/dL Calcium (8.4-10.2) mg/dL 09/15/19 09/15/19 09/15/19 Range/Units 04:25 04:40 06:12 RBC (4.30-5.90) m/uL Hgb (13.0-17.5) gm/dL Hct (39.0-53.0) % MCHC (31.0-37.0) g/dL RDW (11.5-15.5) % ABG pH 7.46 H (7.35-7.45) ABG Total CO2 26 H (19-24) mmol/L ABG O2 Saturation 97.8 H (94-97) % Sodium 146 H (137-145) mmol/L Chloride 118 H (98-107) mmol/L Creatinine 0.63 L (0.66-1.25) mg/dL Glucose 103 H (74-99) mg/dL POC Glucose (mg/dL) 110 H (75-99) mg/dL Calcium 7.9 L (8.4-10.2) mg/dL 09/15/19 09/15/19 Range/Units 06:36 12:12 RBC (4.30-5.90) m/uL Hgb (13.0-17.5) gm/dL Hct (39.0-53.0) % MCHC (31.0-37.0) g/dL RDW (11.5-15.5) % ABG pH (7.35-7.45) ABG Total CO2 (19-24) mmol/L ABG O2 Saturation (94-97) % Sodium (137-145) mmol/L Chloride (98-107) mmol/L Creatinine (0.66-1.25) mg/dL Glucose (74-99) mg/dL POC Glucose (mg/dL) 128 H 110 H (75-99) mg/dL Calcium (8.4-10.2) mg/dL Microbiology - Last 24 Hours (Table) 09/13/19 11:00 Gram Stain - Preliminary Bronchoalviolar Lavage - Right Bronchial Washings Culture - Preliminary Presumptive Staph aureus 09/13/19 08:28 Gram Stain - Preliminary Sputum Sputum Culture - Preliminary Gram Neg Bacilli 09/12/19 04:41 Blood Culture - Preliminary Blood No Growth after 72 hours 09/13/19 11:00 Acid Fast Bacilli Smear - Final Bronchoalviolar Lavage - Right Acid Fast Bacilli Culture - Preliminary 09/11/19 17:12 Blood Culture - Preliminary Blood No Growth after 72 hours Assessment and Plan Assessment: Sepsis related to aspiration pneumonia and UTI Acute hypoxic respiratory failure due to above Acute blood loss anemia Diarrhea Urinary tract infection with history of ESBL and pseudomonal infection related to chronic Stein catheter Multiple sclerosis with chronic debility and contractures History of DVT Hypertension Patient meets sepsis criteria. T-max 103 F, heart rate in the 140s, tachypnic on admission. Leukocytosis of 12.9 on September 09, now resolved. Lactic acid negative. Influenza negative. Blood culture positive MRSA. Chest x-ray on admission showing worsening right basilar airspace disease. Urine culture positive for Proteus and E. coli sensitive to ertapenem. Repeat blood cultures continues to be positive for S. aureus. BAL cultures positive for gram negative bacilli. Plans: Continue vancomycin and ertapenem. Follow repeat blood cultures. Robitussin as needed for cough. DuoNeb scheduled for shortness of breath and wheezing. Scopolamine patch for secretions. Telemetry monitoring. Follow final BAL culture. Follow ID and pulmonology recommendations. ABG this morning points towards respiratory alkalosis. Plans: Management as above. Continue mechanical ventilation as per pulmonology recommendations. Tracheostomy planned for Sunday. Hemoglobin 8.1. Likely due to acute blood loss from 09/13 procedures. Plans: Repeat CBC tomorrow morning. C. diff negative. Plans: Symptomatic management. History of ESBL. Urinalysis shows large leukocyte esterase, urine culture shows Proteus mirabilis and E. coli. Plans: Continue IV antibiotics as above. Family adamant about full CODE STATUS. Plans: Continue amantadine. Continue supportive treatment. Heparin for DVT prophylaxis. Social work consulted for LTAC placement. Plans: DVT prophylaxis. BP 120/72. Plans: Discontinue metoprolol due to hypotension. Monitor vitals, adjust medications as necessary. [Patient admitted for sepsis related to aspiration pneumonia. Also has UTI with history of ESBL and pseudomonal/E. coli infections. Pulmonology, ID on board. Intubated on 09/13, plans for tracheostomy on 09/17. Needs LTAC after that. Prognosis is guarded.]
[2019-09-15 18:22] LABS: Glucose,Whole Blood 109 mg/dL (75-99)
--- NOTE | 2019-09-15 22:54 | PN ---
PROGRESS NOTE DATE OF SERVICE: 09/15/2019. REASON FOR FOLLOW UP: MRSA bacteremia and pneumonia. INTERVAL HISTORY: The patient is currently afebrile. The patient is hemodynamically stable, not requiring any pressor support. FiO2 is currently stable. Still intubated on the vent. Unable to provide any history. PHYSICAL EXAMINATION: Blood pressure is 131/76 with a pulse of 81, temperature of 98. He is 97% on 30% FiO2. General description is a middle-aged male lying in bed in no distress. Respiratory system: Unlabored breathing with decreased breath sounds in the bases. No wheeze. Heart S1, S2. Regular rate and rhythm. Abdomen soft, no tenderness. LABS: BUN of 19, creatinine 0.63. Bronch, lavage culture with MRSA. Culture showing a gram- negative. DIAGNOSTIC IMPRESSION AND PLAN: Patient with MRSA bacteremia, source is pneumonia. The sputum was showing gram- negative. Patient is currently covered with vancomycin and to continue while waiting for the culture to finalize and monitor his clinical course closely. MMODL / IJN: [id number] /
[2019-09-16 00:08] LABS: Glucose,Whole Blood 105 mg/dL (75-99)
[2019-09-16] MEDS: PROPOFOL 1,000 MG in EMPTY BAG 1 BAG IV SCH ×5 (00:31→23:46)
[2019-09-16] MEDS: NOREPINEPHRINE 4 MG in SODIUM CHLORIDE 0.9% 250 ML IV SCH (02:54)
[2019-09-16] MEDS: IPRATROPIUM-ALBUTEROL 3 ML NEB INHALATION SCH ×5 (03:19→21:12)
[2019-09-16] MEDS: SODIUM CHLORIDE 0.9% 1,000 ML IV SCH (03:30)
[2019-09-16 04:45] LABS: ABG Base Excess 1.4 mmol/L; ABG HCO3 25 mmol/L (21-25); ABG Oxygen Saturation 97.9 % (94-97); ABG PCO2 33 mmHg (35-45); ABG PH 7.49 (7.35-7.45); ABG PO2 94 mmHg (83-108); ABG TCO2 26 mmol/L (19-24)
[2019-09-16 04:48] LABS: Allen Test Performed? no
[2019-09-16 05:28] LABS: Anisocytosis Slight; HCT 25.8 % (39.0-53.0); HGB 8.1 gm/dL (13.0-17.5); Hypochromasia Marked; MCH 26.1 pg (25.0-35.0); MCHC 31.5 g/dL (31.0-37.0); MCV 82.9 fL (80.0-100.0); Mean Platelet Volume 8.2; Platelet Count 359 k/uL (150-450); RBC 3.11 m/uL (4.30-5.90); RDW 18.3 % (11.5-15.5); WBC 7.1 k/uL (3.8-10.6)
[2019-09-16 05:42] LABS: African American GFR (CKD) >90 (>60 ml/min/1.73 sqM); Anion Gap 4 mmol/L; Blood Urea Nitrogen 16 mg/dL (9-20); Calcium 7.8 mg/dL (8.4-10.2); Carbon Dioxide 24 mmol/L (22-30); Chloride 113 mmol/L (98-107); Glucose 104 mg/dL (74-99); Non-African American GFR(CKD) >90 (>60 ml/min/1.73 sqM); Potassium 3.8 mmol/L (3.5-5.1); Sodium 141 mmol/L (137-145)
[2019-09-16] MEDS: VANCOMYCIN 1,250 MG in SODIUM CHLORIDE 0.9% 250 ML IVPB SCH ×2 (05:44→17:48)
[2019-09-16 06:08] LABS: Glucose,Whole Blood 107 mg/dL (75-99)
--- NOTE | 2019-09-16 08:29 | XR ---
EXAMINATION: XR chest 1V portable DATE AND TIME: 09/16/2019 5:41 AM CLINICAL INDICATION: PHH; Tube placement TECHNIQUE: Portable semiupright COMPARISON: 09/15/2019 at 5:52 AM FINDINGS: Support lines and catheters: ET tube tip superimposed over the mid trachea. Left IJ central line tip superimposed over the cavoatrial junction. EKG leads noted. Lungs: Overall lung inflation pattern similar to the prior study, with interstitial phase pulmonary e bhpuendra noted and partial consolidation of the right lung base. There are no new lung parenchymal findin gs. Elevated hemidiaphragms redemonstrated, consistent with relatively low lung inflation at the [facility] nt of x-ray exposure. Pleural spaces: Negative. Cardiac mediastinal silhouette and bones and soft tissues are unremarkable. IMPRESSION: Stable chest radiographic appearance; no new process.
--- NOTE | 2019-09-16 08:43 | P.PN ---
Subjective Progress Note Date: 09/16/19 on 09/16/2019 I'm seeing the patient for a follow-up. I had the opportunity to meet his power of civil rights attorney, his sister and the encounter was not very pleasant. During our conversation, I suggested the possibility of considering a tracheostomy tube for pulmonary toileting and easy access to his lungs. She essentially declined. She has her own thinking of managing her brother and she is not open to any form of suggestions. On today's evaluation, there is some improvement in the infiltration of the lung bases. There is some residual infiltration the right lung base with seems to be better compared to yesterday. ET tube is still in a good location. He remains on FiO2 of 30% with a PEEP of 5 and a tidal volume of 450 with a rate of 16. The blood gas showed a pH of 7.48 with a pCO2 of 32 and pO2 of 94. He is intubated by a #8 orotracheal tube. The respiratory secretions are moderate and he is requiring to be suctioned every couple of hours. No fever for now. Hemodynamically stable. Still sedated with propofol running at 40 g per KG per minute. He has a orogastric tube in place and he is receiving enteral feeding for nutritional support. He is not having any diarrhea at this point in time. His hemoglobin today is 8.1. We'll checksome baseline serum iron levels and supplement the patient if needed. The follow-up bronchioloalveolar lavage showed presumptive staph and would awaiting for final cultures. There is also gram-negative bacillus that was cultured in the sputum. The patient has staphylococcal sepsis with low status is full. He has a left IJ triple-lumen catheter. There is a right radial art line. Objective - Vital Signs Vital signs: Vital Signs Temp 98.9 F 09/16/19 04:00 Pulse 84 09/16/19 07:35 Resp 23 09/16/19 07:00 BP 123/74 09/16/19 07:00 Pulse Ox 97 09/16/19 07:00 Intake & Output 09/15/19 09/16/19 09/16/19 18:59 06:59 18:59 Intake Total 2320.984 1592.947 81 Output Total 1365 1145 80 Balance 955.984 447.947 1 Weight 75.1 kg 75.1 kg Intake: IV 1197 1147 81 Ertapenem 1 gm In Sodium 50 Chloride 0.9% 50 ml @ 100 mls/hr IVPB DAILY [facility] Rx #:[id number] Sodium Chloride 0.9% 1, 825 825 75 000 ml @ 10 mls/hr IV . Q24H [facility] Rx#:[id number] Vancomycin 1,250 mg In 250 250 Sodium Chloride 0.9% 250 ml @ 125 mls/hr IVPB Q12H [facility] Rx#:[id number] pressure bag 72 72 6 Intake, IV Titration 193.984 185.947 Amount Propofol 1,000 mg In 193.984 185.947 Empty Bag 1 bag @ Titrate IV .Q0M [facility] Rx#: [id number] Tube Feeding 780 260 Other 150 Output: Urine 1365 1145 80 Other: Voiding Method Indwelling Catheter Indwelling Catheter ABP, PAP, CO, CI - Last Documented Arterial Blood Pressure 136/64 - Exam GENERAL EXAM: Intubated, sedated, 59-year-old male patient, cachectic. intubated on a mechanical ventilated and is calm and comfortable. HEAD: Normocephalic/atraumatic. EYES: Normal reaction of pupils, equal size. Conjunctiva pink, sclera white. NOSE: Clear with pink turbinates. THROAT: No erythema or exudates. NECK: No masses, no JVD, no thyroid enlargement, no adenopathy. CHEST: No chest wall deformity. Symmetrical expansion. LUNGS: Equal air entry with scattered rhonchi throughout CVS: Regular rate and rhythm, normal S1 and S2, no gallops, no murmurs, no rubs ABDOMEN: Soft, nontender. No hepatosplenomegaly, normal bowel sounds, no guarding or rigidity. PEG tube present in the left upper abdomen, exit site clean and dry EXTREMITIES: No clubbing, no edema, no cyanosis, 2+ pulses and upper and lower extremities. Chronic contractures involving upper and lower extremities MUSCULOSKELETAL: Chronic contractures, muscle wasting SPINE: No scoliosis or deformity SKIN: No rashes CENTRAL NERVOUS SYSTEM: Intubated, sedated.the patient has chronic contractures and muscle atrophy related to his MS both in the upper and lower extremities. Pupils are round 4 mm in size and sluggishly reactive to light. No facial asymmetry. - Labs CBC & Chem 7: 09/16/19 06:00 09/16/19 05:00 Labs: Abnormal Lab Results - Last 24 Hours (Table) 09/15/19 09/15/19 09/15/19 Range/Units 12:12 18:11 23:55 RBC (4.30-5.90) m/uL Hgb (13.0-17.5) gm/dL Hct (39.0-53.0) % RDW (11.5-15.5) % ABG pH (7.35-7.45) ABG pCO2 (35-45) mmHg ABG Total CO2 (19-24) mmol/L ABG O2 Saturation (94-97) % Chloride (98-107) mmol/L Creatinine (0.66-1.25) mg/dL Glucose (74-99) mg/dL POC Glucose (mg/dL) 110 H 109 H 105 H (75-99) mg/dL Calcium (8.4-10.2) mg/dL 09/16/19 09/16/19 09/16/19 Range/Units 04:43 05:00 05:57 RBC (4.30-5.90) m/uL Hgb (13.0-17.5) gm/dL Hct (39.0-53.0) % RDW (11.5-15.5) % ABG pH 7.49 H (7.35-7.45) ABG pCO2 33 L (35-45) mmHg ABG Total CO2 26 H (19-24) mmol/L ABG O2 Saturation 97.9 H (94-97) % Chloride 113 H (98-107) mmol/L Creatinine 0.65 L (0.66-1.25) mg/dL Glucose 104 H (74-99) mg/dL POC Glucose (mg/dL) 107 H (75-99) mg/dL Calcium 7.8 L (8.4-10.2) mg/dL 09/16/19 Range/Units 06:00 RBC 3.11 L (4.30-5.90) m/uL Hgb 8.1 L (13.0-17.5) gm/dL Hct 25.8 L (39.0-53.0) % RDW 18.3 H (11.5-15.5) % ABG pH (7.35-7.45) ABG pCO2 (35-45) mmHg ABG Total CO2 (19-24) mmol/L ABG O2 Saturation (94-97) % Chloride (98-107) mmol/L Creatinine (0.66-1.25) mg/dL Glucose (74-99) mg/dL POC Glucose (mg/dL) (75-99) mg/dL Calcium (8.4-10.2) mg/dL Microbiology - Last 24 Hours (Table) 09/12/19 04:41 Blood Culture - Preliminary Blood No Growth after 96 hours 09/11/19 17:12 Blood Culture - Preliminary Blood No Growth after 96 hours 09/13/19 11:00 Gram Stain - Preliminary Bronchoalviolar Lavage - Right Bronchial Washings Culture - Preliminary Presumptive Staph aureus 09/13/19 08:28 Gram Stain - Preliminary Sputum Sputum Culture - Preliminary Gram Neg Bacilli Assessment and Plan Plan: #1. Acute hypoxemic respiratory failure requiring intubation and mechanical ventilation on 09/13/2019 . The patient has bilateral pneumonia and the primary cultures are showing staph aureus. the pneumonia is improving for now. The patient I was toldhas no significant cough which is effective for pulmonary toileting. I'm going to reevaluate this by giving the patient has a sedation holiday. He is requiring suctioning every 2 hours for now. The final bronchioloalveolar lavage results are still pending for now. There is presumptive staph aureus. #2. MRSA sepsis secondary to above #3. Suspect chronic aspiration, despite nothing by mouth status the patient is being fed by a PEG tube #4. Urinary tract infection related to ESBL E. coli and Proteus mirabiliscurrently on IV Invanz #5. Severe multiple sclerosis with cognitive impairment, speech impairment, muscle atrophy, rigidity, chronic contractures, urinary and bowel incontinence gait impairment #6. History of recurrent urinary tract infections including with ESBL organisms and pseudomonal infections #7. Recent hospitalization in July for urinary tract infection with sepsis and urine culture was positive for ESBL E. coli #8. Chronic dysphagia, patient has a PEG tube #9. Multiple hospitalizations related to history of negative bacteremia, recurrent urinary tract infections #10. Poor baseline functioning status, patient is bedridden, and he resides in a [facility] #11 diarrhea, improved #12 anemia, likely secondary to acute disease in addition to dilution and phlebotomy. We'll check serum iron levels. No evidence of any GI bleeding at this point in time. Hemoglobin is stable at 8.1. plan This patient will likely need a tracheostomy tube. Based on my conversation with the medical staff and respiratory therapy and the nursing staff his been t aken care of this patient, the patient has been extremely weak unable to cough or new adequate pulmonary toileting. her power of civil rights attorney, the sister declined tracheostomy. We are giving the patient has sedation holiday. We'll going to assess his cough and elevated to the pulmonary toileting. His follow-up chest x-ray from today is improving. He is afebrile. Is on a combination of Invanz and vancomycin. Diarrhea has subsided. Check serum iron levels and supplement with IV iron if needed. His vancomycin trough is at 22. Continue enteral feeding for nutritional support. We'll continue to follow. Is a full CODE STATUS.he is afebrile for now. Critically care evaluation, more than 30 minutes Time with Patient: Greater than 30
[2019-09-16] MEDS: AMANTADINE HCL 100 MG/10 ML CUP PO SCH ×2 (08:53→21:40)
[2019-09-16] MEDS: ASCORBIC ACID 500 MG TAB PEG/G-TUBE SCH (08:53)
[2019-09-16] MEDS: BACLOFEN 10 MG TAB PEG/G-TUBE SCH ×3 (08:54→21:41)
[2019-09-16] MEDS: OXYBUTYNIN CHLORIDE 5 MG TAB PEG/G-TUBE SCH ×2 (08:55→16:25)
[2019-09-16] MEDS: PANTOPRAZOLE SODIUM 40 MG GRANULE PKT PEG/G-TUBE SCH (08:55)
[2019-09-16] MEDS: CHOLECALCIFEROL 1,000 UNIT TAB PEG/G-TUBE SCH (08:55)
[2019-09-16] MEDS: ERTAPENEM 1 GM in SODIUM CHLORIDE 0.9% 50 ML IVPB SCH (08:55)
[2019-09-16] MEDS: HEPARIN SODIUM,PORCINE 5,000 UNIT/ML 1 ML VIAL SQ SCH ×2 (08:55→21:40)
[2019-09-16] MEDS: CHLORHEXIDINE GLUCONATE 15 ML CUP MUCOUS MEM SCH ×2 (08:55→21:41)
[2019-09-16 12:00] LABS: Glucose,Whole Blood 117 mg/dL (75-99)
--- NOTE | 2019-09-16 12:28 | P.PN ---
Subjective Progress Note Date: 09/16/19 CHIEF COMPLAINT: trach insertion HISTORY OF PRESENT ILLNESS: patient examined at the bedside with Dr. Case. Patient remains in intensive care unit. He remains on mechanical ventilation. PHYSICAL EXAM: VITAL SIGNS: Reviewed. GENERAL: Well-developed in no acute distress-remains vented. HEENT: No sclera icterus. Extraocular movements grossly intact. Moist buccal mucosa. Head is atraumatic, normocephalic. ABDOMEN: Soft. Nondistended. Nontender. PEG tube noted. NEUROLOGIC: Remains on mechanical ventilation and sedation ASSESSMENT: 1. Acute hypoxic respiratory failure requiring mechanical ventilation secondary to bilateral pneumonia PLAN: Patient's sister is refusing tracheostomy placement at this time. We will cancel patient's procedure tomorrow. We will sign off. Please reconsult if patient's sister reconsiders tracheostomy placement. Nurse practitioner note has been reviewed by physician. Signing provider agrees with the documented findings, assessment, and plan of care. Objective - Vital Signs Vital signs: Vital Signs Temp 98.1 F 09/16/19 12:00 Pulse 85 09/16/19 12:00 Resp 32 H 09/16/19 12:00 BP 143/86 09/16/19 12:00 Pulse Ox 97 09/16/19 12:00 Intake & Output 09/15/19 09/16/19 09/16/19 18:59 06:59 18:59 Intake Total 2320.984 1592.947 889.286 Output Total 1365 1145 990 Balance 955.984 447.947 -100.714 Weight 75.1 kg 75.1 kg Intake: IV 1197 1147 361 Ertapenem 1 gm In Sodium 50 Chloride 0.9% 50 ml @ 100 mls/hr IVPB DAILY [facility] Rx #:[id number] Sodium Chloride 0.9% 1, 825 825 325 000 ml @ 10 mls/hr IV . Q24H [facility] Rx#:[id number] Vancomycin 1,250 mg In 250 250 Sodium Chloride 0.9% 250 ml @ 125 mls/hr IVPB Q12H [facility] Rx#:[id number] pressure bag 72 72 36 Intake, IV Titration 193.984 185.947 83.286 Amount Propofol 1,000 mg In 193.984 185.947 83.286 Empty Bag 1 bag @ Titrate IV .Q0M [facility] Rx#: [id number] Tube Feeding 780 260 325 Other 150 120 Output: Urine 1365 1145 990 Other: Voiding Method Indwelling Catheter Indwelling Catheter Indwelling Catheter ABP, PAP, CO, CI - Last Documented Arterial Blood Pressure 139/84 - Labs CBC & Chem 7: 09/16/19 06:00 09/16/19 05:00 Labs: Abnormal Lab Results - Last 24 Hours (Table) 09/15/19 09/15/19 09/16/19 Range/Units 18:11 23:55 04:43 RBC (4.30-5.90) m/uL Hgb (13.0-17.5) gm/dL Hct (39.0-53.0) % RDW (11.5-15.5) % ABG pH 7.49 H (7.35-7.45) ABG pCO2 33 L (35-45) mmHg ABG Total CO2 26 H (19-24) mmol/L ABG O2 Saturation 97.9 H (94-97) % Chloride (98-107) mmol/L Creatinine (0.66-1.25) mg/dL Glucose (74-99) mg/dL POC Glucose (mg/dL) 109 H 105 H (75-99) mg/dL Calcium (8.4-10.2) mg/dL 09/16/19 09/16/19 09/16/19 Range/Units 05:00 05:57 06:00 RBC 3.11 L (4.30-5.90) m/uL Hgb 8.1 L (13.0-17.5) gm/dL Hct 25.8 L (39.0-53.0) % RDW 18.3 H (11.5-15.5) % ABG pH (7.35-7.45) ABG pCO2 (35-45) mmHg ABG Total CO2 (19-24) mmol/L ABG O2 Saturation (94-97) % Chloride 113 H (98-107) mmol/L Creatinine 0.65 L (0.66-1.25) mg/dL Glucose 104 H (74-99) mg/dL POC Glucose (mg/dL) 107 H (75-99) mg/dL Calcium 7.8 L (8.4-10.2) mg/dL 09/16/19 Range/Units 11:49 RBC (4.30-5.90) m/uL Hgb (13.0-17.5) gm/dL Hct (39.0-53.0) % RDW (11.5-15.5) % ABG pH (7.35-7.45) ABG pCO2 (35-45) mmHg ABG Total CO2 (19-24) mmol/L ABG O2 Saturation (94-97) % Chloride (98-107) mmol/L Creatinine (0.66-1.25) mg/dL Glucose (74-99) mg/dL POC Glucose (mg/dL) 117 H (75-99) mg/dL Calcium (8.4-10.2) mg/dL Microbiology - Last 24 Hours (Table) 09/13/19 11:00 Gram Stain - Final Bronchoalviolar Lavage - Right Bronchial Washings Culture - Final Methicillin resist S. aureus 09/13/19 08:28 Gram Stain - Final Sputum Sputum Culture - Final Pseudomonas aeruginosa 09/12/19 04:41 Blood Culture - Preliminary Blood No Growth after 96 hours 09/11/19 17:12 Blood Culture - Preliminary Blood No Growth after 96 hours
[2019-09-16] MEDS: CEFEPIME 2 GM in SODIUM CHLORIDE 0.9% 100 ML IVPB SCH ×2 (12:55→21:40)
--- NOTE | 2019-09-16 13:43 | PN ---
PROGRESS NOTE DATE OF SERVICE: 09/16/2019. REASON FOR FOLLOWUP: MRSA pneumonia with secondary bacteremia. INTERVAL HISTORY: The patient is currently afebrile. Patient is hemodynamically stable. His FiO2 is currently stable, seemed to be more awake and alert, though intubated. No worsening diarrhea reported. PHYSICAL EXAMINATION: Blood pressure 142/86, pulse of 85, temperature 98.1. He is 97% on 30% FiO2. General description is a middle-aged male lying in bed in no distress. RESPIRATORY SYSTEM: Unlabored breathing, clear to auscultation anteriorly. HEART: S1, S2. Regular rate and rhythm. ABDOMEN: Soft, no tenderness. EXTREMITIES: No edema of the feet. LABS: Hemoglobin 8.1, white count 7.1. BUN of 16, creatinine 0.65. Blood culture repeat 09/11 and 09/12 has been negative. Sputum showing Pseudomonas aeruginosa. Bronchial lavages MRSA. DIAGNOSTIC IMPRESSION AND PLAN: Patient with methicillin-resistant Staphylococcus aureus bacteremia source is pneumonia. Sputum showing Pseudomonas, question of colonizer as the patient showed clinical deformity without getting treatment for the same. Invanz will discontinue, a short course of cefepime and vancomycin to be continue as we monitor his clinical course closely. MMODL / IJN: [id number] /
[2019-09-16 17:43] LABS: % Iron Saturation 15.59 (15.00-50.00)
--- NOTE | 2019-09-16 19:01 | P.PN ---
Subjective Progress Note Date: 09/16/19 Principal diagnosis: dyspnea Patient is a 59-year-old male with a known history of multiple sclerosis who is a chronic [facility] resident with contractures, bedbound, and had a PEG tube in place, GERD, hypertension, and prior DVT was taken to the hospital secondary to low oxygenation and a high-grade fever. On arrival to the emergency department his pulse was 139, respiratory rate 31, and O2 sat 95% on a nonrebreather. Initial temperature was 103 rectally. Initial laboratory analysis did not demonstrate any elevated white blood cell count, he was found have a low sodium at 133 and a slightly elevated alk phos at 158. Influenza nasal swab was negative. Chest x-ray showed a right sided perihilar infiltrate and mild left lower lobe pneumonia. He was diagnosed with pneumonia with sepsis. He was started on broad-spectrum antibiotics and admitted. Patient was noted to have a chronic indwelling Aggarwal catheter. Pulmonary was consulted, and noted that patient had a very weak cough and was not able to clear secretions. Infectious disease was consulted who agreed with initial choice of vancomycin by transition Christa to Shakir secondary to patient's history of ESBL E. coli. Pulmonary did discuss CODE STATUS with the patient's legal guardian his sister on admission and she was adamant that he remain full code. Blood cultures came back positive for MRSA. His chest x-rays continued to worsen. Today cultures have shown MRSA bacteremia, MDRO ESBL E. coli and Proteus in the urine which appears more consistent with chronic colonization, and MRSA PNA. 09/12 noted to have loose stools and C. diff was sent but was negative. Pulmonary again confir med full CODE STATUS with family and patient had worsening respiratory status was subsequently intubated, had and arterial line, had central line placed, and underwent BAL on 09/13. Plan since intubation was that patient will need retirement trach and will need LTACH placement on discharge. Plan was for trach on 09/17. However sister came in on 09/15 and does not want trach. Echo EF 50-55% Patient seen and examined at bedside with nursing present. Awake and following commands. Patient wanted information on hospital course which was provided. No fmaily present at bedside. Objective - Vital Signs Vital signs: Vital Signs Temp 98.9 F 09/16/19 04:00 Pulse 82 09/16/19 07:16 Resp 23 09/16/19 07:00 BP 123/74 09/16/19 07:00 Pulse Ox 97 09/16/19 07:00 Intake & Output 09/15/19 09/16/19 09/16/19 18:59 06:59 18:59 Intake Total 2320.984 1592.947 81 Output Total 1365 1145 80 Balance 955.984 447.947 1 Weight 75.1 kg 75.1 kg Intake: IV 1197 1147 81 Ertapenem 1 gm In Sodium 50 Chloride 0.9% 50 ml @ 100 mls/hr IVPB DAILY [facility] Rx #:[id number] Sodium Chloride 0.9% 1, 825 825 75 000 ml @ 10 mls/hr IV . Q24H [facility] Rx#:[id number] Vancomycin 1,250 mg In 250 250 Sodium Chloride 0.9% 250 ml @ 125 mls/hr IVPB Q12H [facility] Rx#:[id number] pressure bag 72 72 6 Intake, IV Titration 193.984 185.947 Amount Propofol 1,000 mg In 193.984 185.947 Empty Bag 1 bag @ Titrate IV .Q0M [facility] Rx#: [id number] Tube Feeding 780 260 Other 150 Output: Urine 1365 1145 80 Other: Voiding Method Indwelling Catheter Indwelling Catheter ABP, PAP, CO, CI - Last Documented Arterial Blood Pressure 136/64 - Exam General: ill appearing, temporal wasting, appears older than stated age, no distress, Derm: warm, dry Head: atraumatic, normocephalic, symmetric Eyes: EOMI, no lid lag, anicteric sclera Mouth: no lip lesion, mucus membranes moist Cardiovascular: S1S2 reg, no murmur, positive posterior tibial pulse bilateral, Lungs: course breath sounds bilateral, no rhonchi, no rales , no accessory muscle use, on vent Abdominal: soft, nontender to palpation, no guarding, no appreciable organomegaly Ext: + gross muscle atrophy/ wasting, 2+ edema, no contractures Neuro: breating over vent, horizontal nystagamus on left eye, flexion cont ractures all 4 extremities, following simple commands Psych: Alert, oriented to self and place, flat affect - Labs CBC & Chem 7: 09/16/19 06:00 09/16/19 05:00 Labs: Abnormal Lab Results - Last 24 Hours (Table) 09/15/19 09/15/19 09/15/19 Range/Units 12:12 18:11 23:55 RBC (4.30-5.90) m/uL Hgb (13.0-17.5) gm/dL Hct (39.0-53.0) % RDW (11.5-15.5) % ABG pH (7.35-7.45) ABG pCO2 (35-45) mmHg ABG Total CO2 (19-24) mmol/L ABG O2 Saturation (94-97) % Chloride (98-107) mmol/L Creatinine (0.66-1.25) mg/dL Glucose (74-99) mg/dL POC Glucose (mg/dL) 110 H 109 H 105 H (75-99) mg/dL Calcium (8.4-10.2) mg/dL 09/16/19 09/16/19 09/16/19 Range/Units 04:43 05:00 05:57 RBC (4.30-5.90) m/uL Hgb (13.0-17.5) gm/dL Hct (39.0-53.0) % RDW (11.5-15.5) % ABG pH 7.49 H (7.35-7.45) ABG pCO2 33 L (35-45) mmHg ABG Total CO2 26 H (19-24) mmol/L ABG O2 Saturation 97.9 H (94-97) % Chloride 113 H (98-107) mmol/L Creatinine 0.65 L (0.66-1.25) mg/dL Glucose 104 H (74-99) mg/dL POC Glucose (mg/dL) 107 H (75-99) mg/dL Calcium 7.8 L (8.4-10.2) mg/dL 09/16/19 Range/Units 06:00 RBC 3.11 L (4.30-5.90) m/uL Hgb 8.1 L (13.0-17.5) gm/dL Hct 25.8 L (39.0-53.0) % RDW 18.3 H (11.5-15.5) % ABG pH (7.35-7.45) ABG pCO2 (35-45) mmHg ABG Total CO2 (19-24) mmol/L ABG O2 Saturation (94-97) % Chloride (98-107) mmol/L Creatinine (0.66-1.25) mg/dL Glucose (74-99) mg/dL POC Glucose (mg/dL) (75-99) mg/dL Calcium (8.4-10.2) mg/dL Microbiology - Last 24 Hours (Table) 09/11/19 17:12 Blood Culture - Preliminary Blood No Growth after 96 hours 09/13/19 11:00 Gram Stain - Preliminary Bronchoalviolar Lavage - Right Bronchial Washings Culture - Preliminary Presumptive Staph aureus 09/13/19 08:28 Gram Stain - Preliminary Sputum Sputum Culture - Preliminary Gram Neg Bacilli 09/12/19 04:41 Blood Culture - Preliminary Blood No Growth after 72 hours Assessment and Plan Assessment: MRSA and pseudomonas pneumonia with sepsis on admission and Acute hypoxic respiratory failure - d/w ID vanco and cefepime - follow CXR till clear - Pulm recs, vent management per pulm - Pulm hygeine - sister does not want trach ESBL e coli and proteus UTI - on Cefepime and vanco - repeat culture negative and appears infection cleared - ID recs - Change aggarwal once monthly - aggarwal care MRSA bacteremia - continue with vanco - repeat cultures negative to date Anemia -likely dilutaion - check iron studies - follow CBC Severe multiple sclerosis with functional quadriplegia, inability to speak, impair swallowed with chronic aspiration - supportive care - frequent turns - continue tube feedings Chronic dysphagia with PEG tube - continue tube feedings, suggest continuous feedings at discharge - hear of bed >30 degrees. Multiple hospital admissions for resistant urinary tract infection diarrhea, resolved Poor overall prognosis DVT prophylaxis: Heparin Discussed with: Patient, nursing Anticipated discharge: 4-[address]: [facility] LTACH A total of 35 minutes was spent on the care of this complex patient more than 50% of the time was spent in counseling and care coordination.
[2019-09-17] MEDS: IPRATROPIUM-ALBUTEROL 3 ML NEB INHALATION SCH ×7 (00:02→23:59)
[2019-09-17 00:03] LABS: Glucose,Whole Blood 118 mg/dL (75-99)
[2019-09-17 04:08] LABS: ABG Base Excess 0.8 mmol/L; ABG HCO3 25 mmol/L (21-25); ABG Oxygen Saturation 99.6 % (94-97); ABG PCO2 35 mmHg (35-45); ABG PH 7.46 (7.35-7.45); ABG PO2 218 mmHg (83-108); ABG TCO2 26 mmol/L (19-24); Allen Test Performed? Yes
[2019-09-17 04:23] LABS: Anisocytosis Slight; HCT 25.8 % (39.0-53.0); HGB 7.9 gm/dL (13.0-17.5); Hypochromasia Moderate; MCH 25.3 pg (25.0-35.0); MCHC 30.7 g/dL (31.0-37.0); MCV 82.6 fL (80.0-100.0); Platelet Count 349 k/uL (150-450); RBC 3.12 m/uL (4.30-5.90); RDW 18.8 % (11.5-15.5); WBC 7.7 k/uL (3.8-10.6)
[2019-09-17 04:40] LABS: African American GFR (CKD) >90 (>60 ml/min/1.73 sqM); Anion Gap 4 mmol/L; Blood Urea Nitrogen 17 mg/dL (9-20); Calcium 7.7 mg/dL (8.4-10.2); Carbon Dioxide 24 mmol/L (22-30); Chloride 111 mmol/L (98-107); Glucose 106 mg/dL (74-99); Non-African American GFR(CKD) >90 (>60 ml/min/1.73 sqM); Potassium 3.9 mmol/L (3.5-5.1); Sodium 139 mmol/L (137-145)
[2019-09-17] MEDS: PROPOFOL 1,000 MG in EMPTY BAG 1 BAG IV SCH ×4 (04:41→22:47)
[2019-09-17] MEDS: VANCOMYCIN 1,250 MG in SODIUM CHLORIDE 0.9% 250 ML IVPB SCH ×2 (05:57→18:36)
[2019-09-17] MEDS: SODIUM CHLORIDE 0.9% 1,000 ML IV SCH (05:57)
[2019-09-17] MEDS ORDERED: POTASSIUM BICARBONATE/CIT AC 20 MEQ TABLET.EFF NG-TUBE SCH (06:00)
[2019-09-17 06:32] LABS: Glucose,Whole Blood 116 mg/dL (75-99)
--- NOTE | 2019-09-17 07:03 | XR ---
EXAMINATION TYPE: XR chest 1V portable DATE OF EXAM: 09/17/2019 CLINICAL HISTORY: Difficulty breathing progress study. TECHNIQUE: Single AP portable semiupright view of the chest is obtained. COMPARISON: Chest x-ray from one day earlier and older studies. FINDINGS: Endotracheal tube and left internal jugular central venous catheter are stable in appearan ce. Increased interstitial markings bilaterally remain present with more focal consolidation right la teral lung base redemonstrated. Cardiac silhouette size is stable and enlarged. Osseous structures in tact. IMPRESSION: Overall stable findings, mild bilateral interstitial edema and more focal right basilar consolidation/atelectasis.
[2019-09-17] MEDS ORDERED: FUROSEMIDE 10 MG/ML 4 ML VIAL IV STA (08:05)
--- NOTE | 2019-09-17 08:18 | P.PN ---
Subjective Progress Note Date: 09/17/19 On 09/02/2019 I'm seeing the patient for a follow-up. The patient remains intubated on a mechanical ventilator. The patient has bilateral pneumonia and the most recent lavage cultures came back positive for MRSA and pseudomonas aeruginosa and was still has a ESBL producing E. coli in his urine. Based on all this, he was kept on vancomycin and was switched from Invanz to cefepime. Chest x-ray from today shows no significant changes and the patient is still has bilateral pulmonary infiltrates. He still having significant amount of rest or secretions. Yesterday the patient was given a spontaneous breathing trial which she lasted for around 2 hours and then he had to be placed back on assist c ontrol. This morning he is on assist control mode at the rate of extremity with a tidal volume of 450 and FiO2 of 30% with a PEEP of 5. No fever. No significant leukocytosis. The white cell count today's at 7.7. Hemoglobin is at 7.9. Blood gas showed a pH of 7.46 with a pCO2 of 35 and a pO2 of 218 which is quite surprising to me nontender this was done and FiO2 of 30%. The electrodes are all within normal limits. He is receiving enteral feeding for nutritional support. He is on sedation however his easily arousable. While off sedation, the patient will be fully awake and alert. Is producing adequate amount of urine output for now. He has a triple-lumen catheter in his left IJ and a right radial arterial line. Family has declined tracheostomy tube insertion. Objective - Vital Signs Vital signs: Vital Signs Temp 97.8 F 09/17/19 04:00 Pulse 79 09/17/19 07:55 Resp 18 09/17/19 07:00 BP 111/80 09/17/19 07:00 Pulse Ox 98 09/17/19 07:00 Intake & Output 09/16/19 09/17/19 09/17/19 18:59 06:59 18:59 Intake Total 7230.215 6497.695 121 Output Total 2220 1550 125 Balance -392.491 101.695 -4 Weight 78.1 kg Intake: IV 787 672 56 Cefepime 2 gm In Sodium 100 Chloride 0.9% 100 ml @ 200 mls/hr IVPB Q12HR [facility] Rx#:[id number] Sodium Chloride 0.9% 1, 615 600 50 000 ml @ 10 mls/hr IV . Q24H [facility] Rx#:[id number] pressure bag 72 72 6 Intake, IV Titration 175.509 199.695 Amount Propofol 1,000 mg In 175.509 199.695 Empty Bag 1 bag @ Titrate IV .Q0M [facility] Rx#: [id number] Tube Feeding 715 780 65 Other 150 Output: Urine 2220 1550 125 Other: Voiding Method Indwelling Catheter Indwelling Catheter ABP, PAP, CO, CI - Last Documented Arterial Blood Pressure 95/80 - Exam GENERAL EXAM: Intubated, sedated, 59-year-old male patient, cachectic. intubated on a mechanical ventilated and is calm and comfortable. HEAD: Normocephalic/atraumatic. EYES: Normal reaction of pupils, equal size. Conjunctiva pink, sclera white. NOSE: Clear with pink turbinates. THROAT: No erythema or exudates. NECK: No masses, no JVD, no thyroid enlargement, no adenopathy. CHEST: No chest wall deformity. Symmetrical expansion. LUNGS: Equal air entry with scattered rhonchi throughout CVS: Regular rate and rhythm, normal S1 and S2, no gallops, no murmurs, no rubs ABDOMEN: Soft, nontender. No hepatosplenomegaly, normal bowel sounds, no guarding or rigidity. PEG tube present in the left upper abdomen, exit site clean and dry EXTREMITIES: No clubbing, no edema, no cyanosis, 2+ pulses and upper and lower extremities. Chronic contractures involving upper and lower extremities MUSCULOSKELETAL: Chronic contractures, muscle wasting SPINE: No scoliosis or deformity SKIN: No rashes CENTRAL NERVOUS SYSTEM: Intubated, sedated.the patient has chronic contractures and muscle atrophy related to his MS both in the upper and lower extremities. Pupils are round 4 mm in size and sluggishly reactive to light. No facial asymmetry. - Labs CBC & Chem 7: 09/17/19 04:10 09/17/19 04:10 Labs: Abnormal Lab Results - Last 24 Hours (Table) 09/16/19 09/16/19 09/16/19 Range/Units 05:00 11:49 23:51 RBC (4.30-5.90) m/uL Hgb (13.0-17.5) gm/dL Hct (39.0-53.0) % MCHC (31.0-37.0) g/dL RDW (11.5-15.5) % ABG pH (7.35-7.45) ABG pO2 (83-108) mmHg ABG Total CO2 (19-24) mmol/L ABG O2 Saturation (94-97) % Chloride (98-107) mmol/L Creatinine (0.66-1.25) mg/dL Glucose (74-99) mg/dL POC Glucose (mg/dL) 117 H 118 H (75-99) mg/dL Calcium (8.4-10.2) mg/dL Iron 29 L (65-175) ug/dL TIBC 186 L (228-460) ug/dL 09/17/19 09/17/19 09/17/19 Range/Units 04:04 04:10 04:10 RBC 3.12 L (4.30-5.90) m/uL Hgb 7.9 L (13.0-17.5) gm/dL Hct 25.8 L (39.0-53.0) % MCHC 30.7 L (31.0-37.0) g/dL RDW 18.8 H (11.5-15.5) % ABG pH 7.46 H (7.35-7.45) ABG pO2 218 H (83-108) mmHg ABG Total CO2 26 H (19-24) mmol/L ABG O2 Saturation 99.6 H (94-97) % Chloride 111 H (98-107) mmol/L Creatinine 0.52 L (0.66-1.25) mg/dL Glucose 106 H (74-99) mg/dL POC Glucose (mg/dL) (75-99) mg/dL Calcium 7.7 L (8.4-10.2) mg/dL Iron (65-175) ug/dL TIBC (228-460) ug/dL 09/17/19 Range/Units 06:20 RBC (4.30-5.90) m/uL Hgb (13.0-17.5) gm/dL Hct (39.0-53.0) % MCHC (31.0-37.0) g/dL RDW (11.5-15.5) % ABG pH (7.35-7.45) ABG pO2 (83-108) mmHg ABG Total CO2 (19-24) mmol/L ABG O2 Saturation (94-97) % Chloride (98-107) mmol/L Creatinine (0.66-1.25) mg/dL Glucose (74-99) mg/dL POC Glucose (mg/dL) 116 H (75-99) mg/dL Calcium (8.4-10.2) mg/dL Iron (65-175) ug/dL TIBC (228-460) ug/dL Microbiology - Last 24 Hours (Table) 09/13/19 11:00 Gram Stain - Final Bronchoalviolar Lavage - Right Bronchial Washings Culture - Final Methicillin resist S. aureus 09/12/19 04:41 Blood Culture - Preliminary Blood No Growth after 120 hours 09/11/19 17:12 Blood Culture - Preliminary Blood No Growth after 120 hours 09/13/19 08:28 Gram Stain - Final Sputum Sputum Culture - Final Pseudomonas aeruginosa Assessment and Plan Plan: #1. Acute hypoxemic respiratory failure requiring intubation and mechanical ventilation on 09/13/2019 . The patient has bilateral pneumonia and the primary cultures are showing staph aureus/MRSA and pseudomonas aeruginosa. The patient has a story secretions. He is requiring frequent suctioning. His current antibiotic coverage as this patient to cefepime and vancomycin. He is also in a positive fluid balance. His chest x-ray showing bilateral pulmonary infiltrates unchanged compared to yesterday. He is afebrile. He is hemodynamically stable. #2. MRSA sepsis secondary to above, currently afebrile and the repeat blood cultures of been negative #3. Suspect chronic aspiration, despite nothing by mouth status the patient is being fed by a PEG tube #4. Urinary tract infection related to ESBL E. coli and Proteus mirabiliscurrently on IV cefepime #5 Severe multiple sclerosis with cognitive impairment, speech impairment, muscle atrophy, rigidity, chronic contractures, urinary and bowel incontinence gait impairment #6. History of recurrent urinary tract infections including with ESBL organisms and pseudomonal infections #7. Recent hospitalization in July for urinary tract infection with sepsis and urine culture was positive for ESBL E. coli #8. Chronic dysphagia, patient has a PEG tube #9. Multiple hospitalizations related to history of negative bacteremia, rec urrent urinary tract infections #10. Poor baseline functioning status, patient is bedridden, and he resides in a skilled nursing #11 diarrhea, improved #12 anemia, likely secondary to acute disease in addition to dilution and phlebotomy. We'll check serum iron levels. No evidence of any GI bleeding at this point in time. Hemoglobin is stable at 7.9 the serum iron level is at 29 and the patient will be given a dose of IV iron. plan Continue vent support and IV cefepime and vancomycin. Pulmonary toileting Sedation holiday Weaning parameters May consider a spontaneous breathing trial. I'm not hopeful that he was going to extubate taken account that he has a weak cough and his mother respiratory secretions. We'll continue the current antibiotic coverage. I think it's reasonable to at least give him a spontaneous breathing trial and assess his candidacy to wean on a daily basis. Family has declined tracheostomy. IV iron 125 mg of iron sucrose Enteral feeding for nutritional support IV Lasix 40 mg 1 and we'll decide on ongoing treatment on a daily basis IV fluids to KVO Critically care evaluation will continue to follow make further recommendations based on his progress, evaluation was on a more than 30 minutes. Time with Patient: Greater than 30
[2019-09-17] MEDS ORDERED: SODIUM FERRIC GLUCONAT-SUCROSE 125 MG in SODIUM CHLORIDE 0.9% 100 ML IVPB ONE (09:00)
[2019-09-17] MEDS: BACLOFEN 10 MG TAB PEG/G-TUBE SCH ×3 (09:08→21:48)
[2019-09-17] MEDS: AMANTADINE HCL 100 MG/10 ML CUP PO SCH ×2 (09:08→20:04)
[2019-09-17] MEDS: ASCORBIC ACID 500 MG TAB PEG/G-TUBE SCH (09:08)
[2019-09-17] MEDS: CHLORHEXIDINE GLUCONATE 15 ML CUP MUCOUS MEM SCH ×2 (09:08→20:04)
[2019-09-17] MEDS: CHOLECALCIFEROL 1,000 UNIT TAB PEG/G-TUBE SCH (09:09)
[2019-09-17] MEDS: PANTOPRAZOLE SODIUM 40 MG GRANULE PKT PEG/G-TUBE SCH (09:09)
[2019-09-17] MEDS: HEPARIN SODIUM,PORCINE 5,000 UNIT/ML 1 ML VIAL SQ SCH ×2 (09:09→20:04)
[2019-09-17] MEDS: CEFEPIME 2 GM in SODIUM CHLORIDE 0.9% 100 ML IVPB SCH ×2 (09:09→20:59)
[2019-09-17 12:09] LABS: Ferritin 243.6 ng/mL (22.0-322.0)
[2019-09-17 12:28] LABS: Glucose,Whole Blood 133 mg/dL (75-99)
[2019-09-17] MEDS: SCOPOLAMINE 1.5MG/72HR PATCH TRANSDERM SCH (16:46)
--- NOTE | 2019-09-17 20:13 | P.PN ---
Subjective Progress Note Date: 09/17/19 (delayed charting seen at 0850) Principal diagnosis: dyspnea Patient is a 59-year-old male with a known history of multiple sclerosis who is a chronic longterm resident with contractures, bedbound, and had a PEG tube in place, GERD, hypertension, and prior DVT was taken to the hospital secondary to low oxygenation and a high-grade fever. On arrival to the emergency department his pulse was 139, respiratory rate 31, and O2 sat 95% on a nonrebreather. Initial temperature was 103 rectally. Initial laboratory analysis did not demonstrate any elevated white blood cell count, he was found have a low sodium at 133 and a slightly elevated alk phos at 158. Influenza nasal swab was negative. Chest x-ray showed a right sided perihilar infiltrate and mild left lower lobe pneumonia. He was diagnosed with pneumonia with sepsis. He was started on broad-spectrum antibiotics and admitted. Patient was noted to have a chronic indwelling Aggarwal catheter. Pulmonary was consulted, and noted that patient had a very weak cough and was not able to clear secretions. Infectious disease was consulted who agreed with initial choice of vancomycin by transition Christa to Invanz secondary to patient's history of ESBL E. coli. Pulmonary did discuss CODE STATUS with the patient's legal guardian his sister on admission and she was adamant that he remain full code. Blood cultures came back positive for MRSA. His chest x-rays continued to worsen. Today cultures have shown MRSA bacteremia, MDRO ESBL E. coli and Proteus in the urine which appears more consistent with chronic colonization, and MRSA PNA. 09/12 noted to have loose stools and C. diff was sent but was negative. Pulmonary again confirmed full CODE STATUS with family and patient had worsening respiratory status was subsequently intubated, had and arterial line, had central line placed, and underwent BAL on 09/13. Plan since intubation was that patient will need exterminator helper trach and will need LTACH placement on discharge. Plan was for trach on 09/17. However sister came in on 09/15 and does not want trach. Failed weaning trail on 09/16. Echo EF 50-55% Patient seen and examined at bedside with nursing present. Awake and following commands. Denies pain Objective - Vital Signs Vital signs: Vital Signs Temp 98.3 F 09/17/19 16:00 Pulse 80 09/17/19 19:01 Resp 22 09/17/19 19:01 BP 112/66 09/17/19 19:01 Pulse Ox 99 09/17/19 19:01 Intake & Output 09/17/19 09/17/19 09/18/19 06:59 18:59 06:59 Intake Total 7526.488 3809.108 Output Total 1550 3430 Balance 101.695 -1815.892 Weight 78.1 kg 78.1 kg Intake: IV 672 498 Cefepime 2 gm In Sodium 100 Chloride 0.9% 100 ml @ 200 mls/hr IVPB Q12HR [facility] Rx#:[id number] Sodium Chloride 0.9% 1, 600 320 000 ml @ 10 mls/hr IV . Q24H [facility] Rx#:[id number] pressure bag 72 78 Intake, IV Titration 199.695 181.108 Amount Propofol 1,000 mg In 199.695 181.108 Empty Bag 1 bag @ Titrate IV .Q0M [facility] Rx#: [id number] Tube Feeding 780 725 Other 210 Output: Urine 1550 3430 Other: Voiding Method Indwelling Catheter Indwelling Catheter ABP, PAP, CO, CI - Last Documented Arterial Blood Pressure 95/80 - Exam General: ill appearing, temporal wasting, appears older than stated age, no distress, Derm: warm, dry Head: atraumatic, normocephalic, symmetric Eyes: EOMI, no lid lag, anicteric sclera Mouth: no lip lesion, mucus membranes moist Cardiovascular: S1S2 reg, no murmur, positive posterior tibial pulse bilateral, Lungs: course breath sounds bilateral, no rhonchi, no rales , no accessory muscle use, on vent Abdominal: soft, nontender to palpation, no guarding, no appreciable organomegaly Ext: + gross muscle atrophy/ wasting, 2+ edema Neuro: breathing over vent, horizontal nystagamus on left eye, flexion contractures all 4 extremities, following simple commands Psych: Alert, oriented to self and place, flat affect - Labs CBC & Chem 7: 09/17/19 04:10 09/17/19 04:10 Labs: Abnormal Lab Results - Last 24 Hours (Table) 09/16/19 09/17/19 09/17/19 Range/Units 23:51 04:04 04:10 RBC 3.12 L (4.30-5.90) m/uL Hgb 7.9 L (13.0-17.5) gm/dL Hct 25.8 L (39.0-53.0) % MCHC 30.7 L (31.0-37.0) g/dL RDW 18.8 H (11.5-15.5) % ABG pH 7.46 H (7.35-7.45) ABG pO2 218 H (83-108) mmHg ABG Total CO2 26 H (19-24) mmol/L ABG O2 Saturation 99.6 H (94-97) % Chloride (98-107) mmol/L Creatinine (0.66-1.25) mg/dL Glucose (74-99) mg/dL POC Glucose (mg/dL) 118 H (75-99) mg/dL Calcium (8.4-10.2) mg/dL 09/17/19 09/17/19 09/17/19 Range/Units 04:10 06:20 12:16 RBC (4.30-5.90) m/uL Hgb (13.0-17.5) gm/dL Hct (39.0-53.0) % MCHC (31.0-37.0) g/dL RDW (11.5-15.5) % ABG pH (7.35-7.45) ABG pO2 (83-108) mmHg ABG Total CO2 (19-24) mmol/L ABG O2 Saturation (94-97) % Chloride 111 H (98-107) mmol/L Creatinine 0.52 L (0.66-1.25) mg/dL Glucose 106 H (74-99) mg/dL POC Glucose (mg/dL) 116 H 133 H (75-99) mg/dL Calcium 7.7 L (8.4-10.2) mg/dL Microbiology - Last 24 Hours (Table) 09/11/19 17:12 Blood Culture - Final Blood No Growth after 144 hours 09/16/19 15:00 Blood Culture - Preliminary Blood No Growth after 24 hours 09/13/19 11:00 Gram Stain - Final Bronchoalviolar Lavage - Right Bronchial Washings Culture - Final Methicillin resist S. aureus 09/12/19 04:41 Blood Culture - Preliminary Blood No Growth after 120 hours Assessment and Plan Assessment: MRSA and pseudomonas pneumonia with sepsis on admission and Acute hypoxic respiratory failure - ID recs: vanco and cefepime, will need to convert central line to PICC if prol onged course needed - follow CXR till clear - Pulm recs, vent management per pulm - Pulm hygeine - sister does not want trach ESBL e coli and proteus UTI - on Cefepime and vanco - repeat culture negative and appears infection cleared - ID recs - Change aggarwal once monthly - aggarwal care MRSA bacteremia - continue with vanco - repeat cultures negative Anemia, likely dilutaion - Feritin low normal, IV FE X 3 doses - follow CBC Severe multiple sclerosis with functional quadriplegia, inability to speak, impair swallowed with chronic aspiration - supportive care - frequent turns - continue tube feedings Chronic dysphagia with PEG tube - continue tube feedings, suggest continuous feedings at discharge - hear of bed >30 degrees. Multiple hospital admissions for resistant urinary tract infection diarrhea, resolved Lasix X 1 due to edema Poor overall prognosis DVT prophylaxis: Heparin Discussed with: Patient, nursing Anticipated discharge: 4-[address]: return to [facility] vs LTACH A total of 25 minutes was spent on the care of this complex patient more than 50% of the time was spent in counseling and care coordination.
--- NOTE | 2019-09-17 22:42 | PN ---
PROGRESS NOTE DATE OF SERVICE: 09/17/2019 REASON FOR FOLLOWUP: MRSA bacteremia and pneumonia. INTERVAL HISTORY: The patient is currently afebrile. The patient is hemodynamically stable. The patient remains intubated on the vent. FiO2 is currently stable. Tolerating his tube feeds. Worsening diarrhea not reported. PHYSICAL EXAMINATION: Blood pressure is 111/66, pulse of 80, temperature 97.9. He is 100% on 30% FiO2. General description is a middle-aged male lying in bed in no distress. RESPIRATORY SYSTEM: Unlabored breathing with decreased breath sounds at the base. No wheeze. HEART: S1, S2. Regular rate and rhythm. ABDOMEN: Soft. No tenderness. EXTREMITIES: No edema of the feet. LABS: Hemoglobin 7.9, white count 7.7, BUN of 17, creatinine 0.52. DIAGNOSTIC IMPRESSION AND PLAN: Patient with methicillin-resistant Staphylococcus aeruginosa pneumonia with secondary bacteremia. The patient is currently covered with vancomycin, Pharmacy to dose; to continue. His sputum was showing some pseudomonas, also covered with the cefepime. The patient will need at least 2 weeks of antibiotics from his negative blood cultures and monitor his clinical course closely. MMODL / IJN: [id number] /
[2019-09-18 00:20] LABS: Glucose,Whole Blood 108 mg/dL (75-99)
[2019-09-18] MEDS: PROPOFOL 1,000 MG in EMPTY BAG 1 BAG IV SCH (02:38)
[2019-09-18] MEDS: SODIUM CHLORIDE 0.9% 1,000 ML IV SCH (02:40)
[2019-09-18] MEDS: IPRATROPIUM-ALBUTEROL 3 ML NEB INHALATION SCH ×6 (03:46→23:45)
[2019-09-18] MEDS ORDERED: VANCOMYCIN TROUGH DUE 1 EACH MISC MISCELLANE ONE (05:00)
[2019-09-18 05:06] LABS: ABG Base Excess 1.5 mmol/L; ABG HCO3 26 mmol/L (21-25); ABG Oxygen Saturation 98.6 % (94-97); ABG PCO2 38 mmHg (35-45); ABG PH 7.44 (7.35-7.45); ABG PO2 104 mmHg (83-108); ABG TCO2 27 mmol/L (19-24); Allen Test Performed? Yes
[2019-09-18 05:12] LABS: Anisocytosis Slight; HCT 25.5 % (39.0-53.0); HGB 8.2 gm/dL (13.0-17.5); Hypochromasia Moderate; MCH 26.7 pg (25.0-35.0); MCHC 32.2 g/dL (31.0-37.0); MCV 82.7 fL (80.0-100.0); Mean Platelet Volume 7.9; Platelet Count 426 k/uL (150-450); RBC 3.08 m/uL (4.30-5.90); WBC 8.1 k/uL (3.8-10.6)
[2019-09-18] MEDS: VANCOMYCIN 1,250 MG in SODIUM CHLORIDE 0.9% 250 ML IVPB SCH (05:12)
[2019-09-18 05:29] LABS: African American GFR (CKD) >90 (>60 ml/min/1.73 sqM); Anion Gap 3 mmol/L; Blood Urea Nitrogen 16 mg/dL (9-20); Carbon Dioxide 25 mmol/L (22-30); Chloride 109 mmol/L (98-107); Glucose 110 mg/dL (74-99); Non-African American GFR(CKD) >90 (>60 ml/min/1.73 sqM); Potassium 3.8 mmol/L (3.5-5.1); Sodium 137 mmol/L (137-145)
[2019-09-18] MEDS ORDERED: POTASSIUM BICARBONATE/CIT AC 20 MEQ TABLET.EFF NG-TUBE SCH (06:00)
[2019-09-18 06:11] LABS: Glucose,Whole Blood 113 mg/dL (75-99)
--- NOTE | 2019-09-18 07:29 | XR ---
EXAMINATION TYPE: XR chest 1V portable DATE OF EXAM: 09/18/2019 COMPARISON: 09/17/2019 HISTORY: Ventilatory dependent respiratory failure. TECHNIQUE: Single frontal view of the chest is obtained. FINDINGS: Left central venous catheter and endotracheal tube are similar in position and satisfactor y. Right basilar opacity has become more confluent in the interim. Interstitial prominence has also b ecome more prominent. Healed left rib fractures are noted with diffuse osseous demineralization. Stab le cardiomediastinal silhouette. IMPRESSION: Increasing confluence of the right basilar opacity, suspected pneumonia, and mild diffus e interstitial pulmonary edema.
[2019-09-18] MEDS: CHLORHEXIDINE GLUCONATE 15 ML CUP MUCOUS MEM SCH (08:48)
[2019-09-18] MEDS: CEFEPIME 2 GM in SODIUM CHLORIDE 0.9% 100 ML IVPB SCH ×2 (08:49→20:56)
[2019-09-18] MEDS: HEPARIN SODIUM,PORCINE 5,000 UNIT/ML 1 ML VIAL SQ SCH ×2 (08:52→20:56)
[2019-09-18] MEDS: AMANTADINE HCL 100 MG/10 ML CUP PO SCH ×2 (08:52→20:59)
[2019-09-18] MEDS: CHOLECALCIFEROL 1,000 UNIT TAB PEG/G-TUBE SCH (08:52)
[2019-09-18] MEDS: PANTOPRAZOLE SODIUM 40 MG GRANULE PKT PEG/G-TUBE SCH (08:53)
[2019-09-18] MEDS: BACLOFEN 10 MG TAB PEG/G-TUBE SCH ×3 (08:53→20:59)
[2019-09-18] MEDS: ASCORBIC ACID 500 MG TAB PEG/G-TUBE SCH (08:53)
[2019-09-18] MEDS ORDERED: FUROSEMIDE 10 MG/ML 4 ML VIAL IV STA (10:51)
--- NOTE | 2019-09-18 10:51 | P.PN ---
Subjective Progress Note Date: 09/18/19 on 09/18/2019 patient is being seen in follow-up. Wide awake and alert. A weak cough hours is able to generate a cough on deep suctioning. He was taken off sedation. Currently is on a spontaneous breathing trial with a pressure support of 5 and a PEEP of 5 and he is able to generate a total of 475 mL of tidal volume. His Apicella breathing index is 56. He is afebrile. Chest x-ray still showing stable bilateral pulmonary infiltrates related to pneumonia. He remains on broad-spectrum antibiotics and he is on a combination of vancomycin and IV cefepime. Vancomycin trough is at 23. He is hemodynamically stable. Is producing adequate amount of urine output. Fluid is running at a rate of 20 mL an hour. He is receiving enteral feeding for nutritional support. No reported aspiration. He is afebrile. His white cell count is at 8.1. He received a dose of IV iron yesterday and his hemoglobin is at 8.2. Blood gases from this morning showed a pH of 7.44 with a pCO2 of 38 and pO2 of 104and this was on FiO2 of 30%. The patient is receiving enteral feeding for via PEG tube. No aspi ration reported. Objective - Vital Signs Vital signs: Vital Signs Temp 97.9 F 09/18/19 08:00 Pulse 88 09/18/19 10:00 Resp 27 H 09/18/19 10:00 BP 126/73 09/18/19 10:00 Pulse Ox 97 09/18/19 10:00 Intake & Output 09/17/19 09/18/19 09/18/19 18:59 06:59 18:59 Intake Total 8988.405 9079.206 415 Output Total 3430 1055 750 Balance -1815.892 708.206 -335 Weight 78.1 kg 76.8 kg Intake: IV 498 853 165 Cefepime 2 gm In Sodium 100 100 100 Chloride 0.9% 100 ml @ 200 mls/hr IVPB Q12HR [facility] Rx#:[id number] Sodium Chloride 0.9% 1, 320 190 50 000 ml @ 10 mls/hr IV . Q24H [facility] Rx#:[id number] Vancomycin 1,250 mg In 500 Sodium Chloride 0.9% 250 ml @ 125 mls/hr IVPB Q12H [facility] Rx#:[id number] pressure bag 78 63 15 Intake, IV Titration 181.108 190.206 100 Amount Propofol 1,000 mg In 181.108 190.206 100 Empty Bag 1 bag @ Titrate IV .Q0M [facility] Rx#: [id number] Tube Feeding 725 630 90 Other 210 90 60 Output: Urine 3430 1055 750 Other: Voiding Method Indwelling Catheter Indwelling Catheter Indwelling Catheter ABP, PAP, CO, CI - Last Documented Arterial Blood Pressure 95/80 - Exam GENERAL EXAM: Intubated, sedated, 59-year-old male patient, cachectic. intubated on a mechanical ventilated and is calm and comfortable. HEAD: Normocephalic/atraumatic. EYES: Normal reaction of pupils, equal size. Conjunctiva pink, sclera white. NOSE: Clear with pink turbinates. THROAT: No erythema or exudates. NECK: No masses, no JVD, no thyroid enlargement, no adenopathy. CHEST: No chest wall deformity. Symmetrical expansion. LUNGS: Equal air entry with scattered rhonchi throughout CVS: Regular rate and rhythm, normal S1 and S2, no gallops, no murmurs, no rubs ABDOMEN: Soft, nontender. No hepatosplenomegaly, normal bowel sounds, no guardi ng or rigidity. PEG tube present in the left upper abdomen, exit site clean and dry EXTREMITIES: No clubbing, no edema, no cyanosis, 2+ pulses and upper and lower extremities. Chronic contractures involving upper and lower extremities MUSCULOSKELETAL: Chronic contractures, muscle wasting SPINE: No scoliosis or deformity SKIN: No rashes CENTRAL NERVOUS SYSTEM: Intubated, sedated.the patient has chronic contractures and muscle atrophy related to his MS both in the upper and lower extremities. P upils are round 4 mm in size and sluggishly reactive to light. No facial asymmetry. - Labs CBC & Chem 7: 09/18/19 05:00 09/18/19 05:00 Labs: Abnormal Lab Results - Last 24 Hours (Table) 09/17/19 09/18/19 09/18/19 Range/Units 12:16 00:08 05:00 RBC 3.08 L (4.30-5.90) m/uL Hgb 8.2 L (13.0-17.5) gm/dL Hct 25.5 L (39.0-53.0) % RDW 19.0 H (11.5-15.5) % ABG HCO3 (21-25) mmol/L ABG Total CO2 (19-24) mmol/L ABG O2 Saturation (94-97) % Chloride (98-107) mmol/L Creatinine (0.66-1.25) mg/dL Glucose (74-99) mg/dL POC Glucose (mg/dL) 133 H 108 H (75-99) mg/dL Calcium (8.4-10.2) mg/dL 09/18/19 09/18/19 09/18/19 Range/Units 05:00 05:00 05:59 RBC (4.30-5.90) m/uL Hgb (13.0-17.5) gm/dL Hct (39.0-53.0) % RDW (11.5-15.5) % ABG HCO3 26 H (21-25) mmol/L ABG Total CO2 27 H (19-24) mmol/L ABG O2 Saturation 98.6 H (94-97) % Chloride 109 H (98-107) mmol/L Creatinine 0.55 L (0.66-1.25) mg/dL Glucose 110 H (74-99) mg/dL POC Glucose (mg/dL) 113 H (75-99) mg/dL Calcium 8.0 L (8.4-10.2) mg/dL Microbiology - Last 24 Hours (Table) 09/12/19 04:41 Blood Culture - Final Blood No Growth after 144 hours 09/11/19 17:12 Blood Culture - Final Blood No Growth after 144 hours 09/16/19 15:00 Blood Culture - Preliminary Blood No Growth after 24 hours 09/13/19 11:00 Gram Stain - Final Bronchoalviolar Lavage - Right Bronchial Washings Culture - Final Methicillin resist S. aureus Assessment and Plan Plan: #1. Acute hypoxemic respiratory failure requiring intubation and mechanical ventilation on 09/13/2019 . The patient has bilateral pneumonia and the primary cultures are showing staph aureus/MRSA and pseudomonas aeruginosa. chest x-ray stable. Able to tolerate a spontaneous breathing trial. I'm not absolutely sure about extubation as the patient has some rest or secretions and has a weak cough. We are going to at least give him a trial of extubation today. Family has declined tracheostomy tube insertion.The chest x-ray findings are stable #2. MRSA sepsis secondary to above, currently afebrile and the repeat blood cultures of been negative #3. Suspect chronic aspiration, despite nothing by mouth status the patient is being fed by a PEG tube #4. Urinary tract infection related to ESBL E. coli and Proteus mirabiliscurrently on IV cefepime #5 Severe multiple sclerosis with cognitive impairment, speech impairment, muscle atrophy, rigidity, chronic contractures, urinary and bowel incontinence gait impairment #6. History of recurrent urinary tract infections including with ESBL organisms and pseudomonal infections #7. Recent hospitalization in July for urinary tract infection with sepsis and urine culture was positive for ESBL E. coli #8. Chronic dysphagia, patient has a PEG tube #9. Multiple hospitalizations related to history of negative bacteremia, recurrent urinary tract infections #10. Poor baseline functioning status, patient is bedridden, and he resides in a [facility] #11 diarrhea, improved #12 anemia, likely secondary to acute disease in addition to dilution and phlebotomy. given IV iron. Hemoglobin is at 8.2. plan Continue vent support and IV cefepime and vancomycin. Pulmonary toileting Will extubated the patient and will do aggressive pulmonary toileting and deep suctioning if needed. He is at a high risk of failing again due to his weak cough and ongoing pneumonias. Weaning parameters IV Lasix 40 mg 1 and we'll decide on ongoing treatment on a daily basis IV fluids to KVO enteral feeding for nutritional support Critically care evaluation will continue to follow make further recommendations based on his progress, evaluation was on a more than 30 minutes. Time with Patient: Greater than 30
[2019-09-18] MEDS ORDERED: LIDOCAINE 1% INJ 10MG/ML (20 ML MDV) SQ ONE (11:24)
--- NOTE | 2019-09-18 12:03 | XR ---
EXAMINATION TYPE: XR chest 1V portable DATE OF EXAM: 09/18/2019 CLINICAL HISTORY: Right-sided PICC line. TECHNIQUE: Single AP portable upright view of the chest is obtained. COMPARISON: Chest x-ray from earlier today an older studies FINDINGS: New Right-sided PICC line terminating in SVC. Stable left internal jugular central venous catheter. Interval extubation with removal of endotracheal tube. Cardiac silhouette size is stable a nd mildly enlarged. Chronic parenchymal changes with right basilar opacity remains present. Osseous s tructures are demineralized. IMPRESSION:New PICC line terminates in SVC. No complication. Interval extubation. Other findings alireza pleitez.
--- NOTE | 2019-09-18 12:14 | IR ---
EXAMINATION TYPE: IR cvc insert >=5 years DATE OF EXAM: 09/18/2019 COMPARISON: NONE HISTORY: Needs long-term intravenous access for therapy, pneumonia,, needs intravenous access for ant ibiotics FINDINGS: Maximal barrier technique was utilized. The skin overlying the right basilic vein was loca lized with ultrasound and noted to be compressible and patent by ultrasound. An ultrasound image was obtained and submitted on patient's chart. Sterile technique utilized with the ultrasound machine. T he skin overlying was prepped and draped and Lidocaine used for local anesthesia. A skin elzbieta was ma de with a scalpel. Access was gained to the vein under direct ultrasound guidance with a 21-gauge ne edle and a 0.018 inch wire was advanced. Access site was dilated with a peel-away sheath and the cat heter tailored to length. Catheter advanced centrally and a post procedure chest x-ray verified plac ement with the tip at the superior vena cava. Catheter was fixed to the skin and a sterile dressing placed. Hemostasis achieved and the catheter was aspirated and flushed with sterile saline. The pat ient remained in stable condition. IMPRESSION: STATUS POST ULTRASOUND GUIDED PICC LINE PLACEMENT, READY FOR USE. THIS PROCEDURE WAS PER FORMED BY THE UNDERSIGNED.
[2019-09-18 12:25] LABS: Glucose,Whole Blood 112 mg/dL (75-99)
[2019-09-18 18:42] LABS: Glucose,Whole Blood 111 mg/dL (75-99)
--- NOTE | 2019-09-18 19:40 | P.PN ---
Subjective Progress Note Date: 09/18/19 (delayed charting seen at 0815) Principal diagnosis: dyspnea Patient is a 59-year-old male with a known history of multiple sclerosis who is a chronic jail resident with contractures, bedbound, and had a PEG tube in place, GERD, hypertension, and prior DVT was taken to the hospital secondary to low oxygenation and a high-grade fever. On arrival to the emergency department his pulse was 139, respiratory rate 31, and O2 sat 95% on a nonrebreather. Initial temperature was 103 rectally. Initial laboratory analysis did not demonstrate any elevated white blood cell count, he was found have a low sodium at 133 and a slightly elevated alk phos at 158. Influenza nasal swab was negative. Chest x-ray showed a right sided perihilar infiltrate and mild left lower lobe pneumonia. He was diagnosed with pneumonia with sepsis. He was started on broad-spectrum antibiotics and admitted. Patient was noted to have a chronic indwelling Aggarwal catheter. Pulmonary was consulted, and noted that patient had a very weak cough and was not able to clear secretions. Infectious disease was consulted who agreed with initial choice of vancomycin by transition Christa to Invanz secondary to patient's history of ESBL E. coli. Pulmonary did discuss CODE STATUS with the patient's legal guardian his sister on admission and she was adamant that he remain full code. Blood cultures came back positive for MRSA. His chest x-rays continued to worsen. Today cultures have shown MRSA bacteremia, MDRO ESBL E. coli and Proteus in the urine which appears more consistent with chronic colonization, and MRSA PNA. 09/12 noted to have loose stools and C. diff was sent but was negative. Pulmonary again confirmed full CODE STATUS with family and patient had worsening respiratory status was subsequently intubated, had and arterial line, had central line placed, and underwent BAL on 09/13. Plan since intubation was that patient will need intermediate accountant trach and will need LTACH placement on discharge. Plan was for trach on 09/17. However sister came in on 09/15 and does not want trach. Failed weaning trail on 09/16, was able to CPAP for 10 hours on 09/17. Echo EF 50-55% Patient seen and examined at bedside with nursing present. No pain, no SOB. No acute events overnight. D/W patient that if he is not able to tolerate extubation it will be trach or comfort measures. Objective - Vital Signs Vital signs: Vital Signs Temp 98.8 F 09/18/19 16:00 Pulse 101 H 09/18/19 19:12 Resp 31 H 09/18/19 19:00 BP 128/74 09/18/19 19:00 Pulse Ox 99 09/18/19 19:00 Intake & Output 09/18/19 09/18/19 09/19/19 06:59 18:59 06:59 Intake Total 1763.206 935 65 Output Total 1055 4550 145 Balance 947.206 -2331 -80 Weight 76.8 kg Intake: IV 853 295 20 Cefepime 2 gm In Sodium 100 100 Chloride 0.9% 100 ml @ 200 mls/hr IVPB Q12HR [facility] Rx#:[id number] Sodium Chloride 0.9% 1, 190 180 20 000 ml @ 10 mls/hr IV . Q24H [facility] Rx#:[id number] Vancomycin 1,250 mg In 500 Sodium Chloride 0.9% 250 ml @ 125 mls/hr IVPB Q12H [facility] Rx#:[id number] pressure bag 63 15 Intake, IV Titration 190.206 100 Amount Propofol 1,000 mg In 190.206 100 Empty Bag 1 bag @ Titrate IV .Q0M [facility] Rx#: [id number] Tube Feeding 630 450 45 Other 90 90 Output: Urine 1055 4550 145 Other: Voiding Method Indwelling Catheter Indwelling Catheter ABP, PAP, CO, CI - Last Documented Arterial Blood Pressure 95/80 - Exam General: ill appearing, temporal wasting, appears older than stated age, no distress, Derm: warm, dry Head: atraumatic, normocephalic, symmetric Eyes: EOMI, no lid lag, anicteric sclera Mouth: no lip lesion, mucus membranes moist Cardiovascular: S1S2 reg, no murmur, positive posterior tibial pulse bilateral, Lungs: course breath sounds bilateral, no rhonchi, no rales , no accessory muscle use, on vent Abdominal: soft, nontender to palpation, no guarding, no appreciable organomegaly Ext: + gross muscle atrophy/ wasting, 1+ edema Neuro: breathing over vent, no nystagamus on left eye, flexion contractures all 4 extremities, following simple commands Psych: Alert, oriented to self and place, flat affect - Labs CBC & Chem 7: 09/18/19 05:00 09/18/19 05:00 Labs: Abnormal Lab Results - Last 24 Hours (Table) 09/18/19 09/18/19 09/18/19 Range/Units 00:08 05:00 05:00 RBC 3.08 L (4.30-5.90) m/uL Hgb 8.2 L (13.0-17.5) gm/dL Hct 25.5 L (39.0-53.0) % RDW 19.0 H (11.5-15.5) % ABG HCO3 (21-25) mmol/L ABG Total CO2 (19-24) mmol/L ABG O2 Saturation (94-97) % Chloride 109 H (98-107) mmol/L Creatinine 0.55 L (0.66-1.25) mg/dL Glucose 110 H (74-99) mg/dL POC Glucose (mg/dL) 108 H (75-99) mg/dL Calcium 8.0 L (8.4-10.2) mg/dL 09/18/19 09/18/19 09/18/19 Range/Units 05:00 05:59 12:14 RBC (4.30-5.90) m/uL Hgb (13.0-17.5) gm/dL Hct (39.0-53.0) % RDW (11.5-15.5) % ABG HCO3 26 H (21-25) mmol/L ABG Total CO2 27 H (19-24) mmol/L ABG O2 Saturation 98.6 H (94-97) % Chloride (98-107) mmol/L Creatinine (0.66-1.25) mg/dL Glucose (74-99) mg/dL POC Glucose (mg/dL) 113 H 112 H (75-99) mg/dL Calcium (8.4-10.2) mg/dL 09/18/19 Range/Units 18:31 RBC (4.30-5.90) m/uL Hgb (13.0-17.5) gm/dL Hct (39.0-53.0) % RDW (11.5-15.5) % ABG HCO3 (21-25) mmol/L ABG Total CO2 (19-24) mmol/L ABG O2 Saturation (94-97) % Chloride (98-107) mmol/L Creatinine (0.66-1.25) mg/dL Glucose (74-99) mg/dL POC Glucose (mg/dL) 111 H (75-99) mg/dL Calcium (8.4-10.2) mg/dL Microbiology - Last 24 Hours (Table) 09/16/19 15:00 Blood Culture - Preliminary Blood No Growth after 48 hours 09/12/19 04:41 Blood Culture - Final Blood No Growth after 144 hours 09/11/19 17:12 Blood Culture - Final Blood No Growth after 144 hours Assessment and Plan Assessment: MRSA and pseudomonas pneumonia with sepsis on admission and Acute hypoxic respiratory failure - ID recs: vanco and cefepime, will need to convert central line to PICC if prolonged course needed - follow CXR till clear - Pulm recs, vent management per pulm - Pulm hygeine - sister does not want trach ESBL e coli and proteus UTI - on Cefepime and vanco - repeat culture negative and appears infection cleared - ID recs - Change aggarwal once monthly - aggarwal care MRSA bacteremia - continue with vanco - repeat cultures negative Anemia, likely dilutaion - Feritin low normal, IV FE X 3 doses - follow CBC Severe multiple sclerosis with functional quadriplegia, inability to speak, impair swallowed with chronic aspiration - supportive care - frequent turns - continue tube feedings Chronic dysphagia with PEG tube - continue tube feedings, suggest continuous feedings at discharge - hear of bed >30 degrees. Multiple hospital admissions for resistant urinary tract infection diarrhea, resolved Poor overall prognosis DVT prophylaxis: Heparin Discussed with: Patient, nursing Anticipated discharge: 2-[address]: return to [facility] vs LTACH A total of 25 minutes was spent on the care of this complex patient more than 50% of the time was spent in counseling and care coordination.
[2019-09-18] MEDS: VANCOMYCIN 1,000 MG in SODIUM CHLORIDE 0.9% 250 ML IVPB SCH (22:02)
--- NOTE | 2019-09-18 22:31 | PN ---
PROGRESS NOTE DATE OF SERVICE: 09/18/2019 REASON FOR FOLLOWUP: MRSA bacteremia and pneumonia. INTERVAL HISTORY: The patient is currently afebrile. The patient is hemodynamically stable, not on any pressor support. The patient has been extubated this morning. He has been breathing comfortably. He also will get a PICC line. No nausea, vomiting or any diarrhea reported by the nursing staff. The patient is still unable to provide any history. PHYSICAL EXAMINATION: Blood pressure 128/74 with a pulse of 103, temperature 98.5. He is 90% on room air. General description is a middle-aged male lying in bed in no distress. HEENT EXAMINATION: Pallor. Oral mucosa membrane dry. LUNGS: Unlabored breathing. Decreased breath sounds at the bases. No wheeze. HEART: S1, S2. Regular rate and rhythm. ABDOMEN: Soft. No tenderness. EXTREMITIES: No edema of the feet. LABS: Hemoglobin 8.2, white count 8.1. BUN of 16, creatinine 0.55. Vancomycin trough slightly on the high side. Follow-up blood culture has been negative. DIAGNOSTIC IMPRESSION AND PLAN: Patient with methicillin-resistant Staphylococcus aeruginosa bacteremia. Source is pneumonia in this patient who took some time to clear his bacteremia. The blood cultures from 09/11 and 09/12 as well as 09/16 have been negative. Plan is to continue the vancomycin, Pharmacy to dose, for another 2 weeks with adjustment of the dose to keep the trough around 15 and weekly monitoring of his CBC, BMP and sed rate. Cefepime can be discontinued on discharge, as clinically doubt pseudomonal component of his pneumonia. MMODL / IJN: [id number] /
[2019-09-18] MEDS: ACETAMINOPHEN TAB 325 MG TAB PO PRN (22:59)
[2019-09-18] MEDS: guaiFENesin SYRUP 100MG/5ML 200 MG/10 ML CUP PEG/G-TUBE PRN (23:00)
[2019-09-19 00:08] LABS: Glucose,Whole Blood 107 mg/dL (75-99)
[2019-09-19] MEDS: IPRATROPIUM-ALBUTEROL 3 ML NEB INHALATION SCH ×6 (03:22→23:32)
[2019-09-19] MEDS: SODIUM CHLORIDE 0.9% 1,000 ML IV SCH (04:58)
[2019-09-19 05:03] LABS: Anisocytosis Slight; Basophils # (A) 0.1 k/uL (0-0.2); Basophils % (A) 1 %; Eosinophils # (A) 0.4 k/uL (0-0.7); Eosinophils % (A) 4 %; HCT 28.4 % (39.0-53.0); HGB 8.8 gm/dL (13.0-17.5); Hypochromasia Moderate; Lymphocytes % (A) 9 %; MCH 25.6 pg (25.0-35.0); MCV 82.8 fL (80.0-100.0); Mean Platelet Volume 7.7; Monocytes # (A) 0.5 k/uL (0-1.0); Monocytes % (A) 4 %; Neutrophils % (A) 81 %; Platelet Count 503 k/uL (150-450); RBC 3.44 m/uL (4.30-5.90); RDW 19.5 % (11.5-15.5); WBC 11.2 k/uL (3.8-10.6)
[2019-09-19 05:12] LABS: African American GFR (CKD) >90 (>60 ml/min/1.73 sqM); Anion Gap 4 mmol/L; Blood Urea Nitrogen 15 mg/dL (9-20); Calcium 8.2 mg/dL (8.4-10.2); Carbon Dioxide 26 mmol/L (22-30); Chloride 109 mmol/L (98-107); Glucose 104 mg/dL (74-99); Non-African American GFR(CKD) >90 (>60 ml/min/1.73 sqM); Potassium 3.6 mmol/L (3.5-5.1); Sodium 139 mmol/L (137-145)
[2019-09-19] MEDS ORDERED: POTASSIUM BICARBONATE/CIT AC 20 MEQ TABLET.EFF NG-TUBE SCH ×2 (06:00→12:00)
[2019-09-19 06:15] LABS: Glucose,Whole Blood 113 mg/dL (75-99)
--- NOTE | 2019-09-19 07:09 | XR ---
EXAMINATION TYPE: XR chest 1V portable DATE OF EXAM: 09/19/2019 COMPARISON: 09/18/2019 INDICATION: Tube placement TECHNIQUE: Single frontal view of the chest is obtained. FINDINGS: The heart size is normal. The pulmonary vasculature is normal. There is a right lower lobe consolidation. Correlate for worsening pneumonia. Some mild diffuse infil trate may be present. Left central venous catheter is been removed. No pneumothorax is evident. Right-sided PICC line remai ns present tip in the superior vena cava region. IMPRESSION: 1. Right lower lobe consolidation. Correlate for pneumonia. 2. Some mild diffuse increased lung markings may be present, mild volume overload may be present.
[2019-09-19] MEDS: ASCORBIC ACID 500 MG TAB PEG/G-TUBE SCH (08:40)
[2019-09-19] MEDS: AMANTADINE HCL 100 MG/10 ML CUP PO SCH ×3 (08:40→20:23)
[2019-09-19] MEDS: CEFEPIME 2 GM in SODIUM CHLORIDE 0.9% 100 ML IVPB SCH ×2 (08:40→20:20)
[2019-09-19] MEDS: BACLOFEN 10 MG TAB PEG/G-TUBE SCH ×3 (08:40→20:20)
[2019-09-19] MEDS: HEPARIN SODIUM,PORCINE 5,000 UNIT/ML 1 ML VIAL SQ SCH ×2 (08:41→20:20)
[2019-09-19] MEDS: VANCOMYCIN 1,000 MG in SODIUM CHLORIDE 0.9% 250 ML IVPB SCH ×2 (08:41→20:20)
[2019-09-19] MEDS: PANTOPRAZOLE SODIUM 40 MG GRANULE PKT PEG/G-TUBE SCH (08:42)
[2019-09-19] MEDS: CHOLECALCIFEROL 1,000 UNIT TAB PEG/G-TUBE SCH (08:48)
[2019-09-19] MEDS: guaiFENesin SYRUP 100MG/5ML 200 MG/10 ML CUP PEG/G-TUBE PRN (11:24)
[2019-09-19] MEDS ORDERED: Potassium Replacement Protocol 1 EACH MISC MISCELLANE PRN (11:27)
--- NOTE | 2019-09-19 11:38 | P.PN ---
Subjective Progress Note Date: 09/19/19 Principal diagnosis: Aspiration pneumonia This is 59-year-old white male patient of [facility] a [facility], with the history of severe MS, poor baseline functioning status, chronic contractures of lower extremities, nonambulatory, patient is essentially bedridden and n onverbal. We have seen patient in consultation during his previous admissions for complications related to sepsis secondary to recurrent urinary tract infections related to Pseudomonas, gram-negative bacteremia, ESBL producing E. coli in the urine. Most recently in July 2019 she was hospitalized for gram- negative sepsis with urine cultures positive for ESBL producing E. coli. Patient was treated, and improved, [facility], yesterday on 09/08/2019 patient presents to the hospital per EMS evaluation of hypoxemia, less of breath, and audible congestion, he was placed on the 100% nonrebreather, pulse ox is 95%, she was febrile on admission, with a temp of 103.0F. Chest x-ray was taken showing mild right-sided perihilar infiltrate, and mild left lower lobe pneumonia that appears to be new since his last admission and his last chest x-ray on 07/31/2019. Admission lab work showed a white blood cell count of 9.4, hemoglobin of 13.8, sodium of 133, p otassium is 5.0, chloride is 101, CO2 is 21, B1 is 21 creatinine 0.71, troponin was negative 1 is 0.016, urinalysis was positive for moderate amount of blood, large amount of leuks, white blood cells in clumps, rare bacteria, culture is pending, influenza screen was negative. Patient was started on a combination of Zosyn and vancomycin, breathing treatments, he remains nothing by mouth, he is being fed via the PEG tube. He seen this morning in the intensive care unit, remains on a percent nonrebreather mask, his cough is very weak, he is not able to clear secretions, and he is audibly congested. Given a dose of IV Lasix this morning for chest congestion, diuresed, however not sounding significantly better. On 09/10/2017 patient seen in follow-up in the intensive care unit, he is awake, appears less dyspneic on today's exam, FiO2 is down to 12 L per high flow nasal cannula, oxygen 98%, hemodynamically stable, tachypneic shallow breaths, but no acute distress, low-grade fevers, sinus tachycardia on the monitor. Still congested, although sounding better on today's exam, remains on antibiotics, she was switched from Zosyn to Invanz, continues on vancomycin, urine culture is positive for gram-negative bacilli, final cultures pending, blood cultures are positive for staph aureus. Today's labs have been reviewed including cell count 8.5, hemoglobin of 10.2, platelet count is 325, sodium is 139, potassium 3.4, chloride is 112, CO2 is 18, BUN 17 creatinine 0.84. Registered dietitian has been consulted for evaluation of nutritional needs, and we anticipate starting tube feedings today, the continuous feeding on the feeding pump. His chest x- ray showed worsening new moderate interstitial pulmonary edema and the more confluent right-sided opacities. On 09/11/2019 patient seen in follow-up in the intensive care unit, patient is alert, he is nonverbal, she follows simple command, his cough is very weak, and patient is still audibly congested, and not able to bring up any phlegm, remains on high flow oxygen, currently at 12 L with a pulse ox of 97%, slightly tachycar dic and the heart rate is ranging from 105-112 BPM, he is afebrile, hemodynamically patient is stable, tube feedings have been resumed, and she is on continuous tube feedings via feeding pump, with a viral AF at a rate is 65 ML per hour, with standard water flushes. Patient remains on antibiotics with Invanz and vancomycin, urine culture revealed 2 different gram-negative organisms with Proteus mirabilis and ESBL E. coli, both susceptible to ertapenem. Blood culture from 09/08/2019 was positive for Staphylococcus aureus, although blood cultures have been done, and so far are negative, his labs have been reviewed, showing white blood cell count of 13.5, hemoglobin of 10.8, sodium is 144, potassium is 3.3, chloride is 112, CO2 is 21, BUN is 15, creatinine 0.67. Patient has been having intermittent low-grade fevers, last one last night at 2000, with a temp of 99.8F, afebrile this morning. On 09/12/2019 patient seen in follow-up in the intensive care unit, he is on 10 L of oxygen, his pulse ox of 98%, a low-grade fever this morning, tachycardic in sinus mechanism with a rate of 112 BPM, patient was noted to be more short of breath, remains congested, his cough is weak, patient is unable to clear secretions, blood gas was then obtained on 11 L high flow oxygen, and review pO2 of 81, pCO2 of 35 and pH of 7.48. Patient remains on Invanz and vancomycin for evidence of ESBL E. coli, Proteus mirabilis in the urine culture, patient also had MRSA bacteremia, morning his follow-up blood culture from 09/10/2019 also shows presumptive MRSA, final culture is pending. Patient is on tube feedings, is having loose stools, stool for C. diff was sent and the results are pending at this time. Remains strict nothing by mouth. No new chest x-ray today, yesterday's chest x-ray showed scattered air space infiltrates bilaterally, without significant change from prior chest x-rays. On 09/19/2019 patient seen in follow-up in the intensive care unit, he was successfully extubated yesterday, he is done fairly well since extubation, currently is on room air, with a pulse ox of 92-93%, afebrile, hemodynamically stable, off is weak, and patient still has trouble generating sufficient cough to clear secretions. Does not appear to be any acute distress, lung sounds reveal diffuse rhonchi, he remains nothing by mouth, he is being fed through his PEG tube, remains on breathing treatments, and antibiotics with cefepime and vancomycin. BAL cultures were positive for MRSA, fungal cultures are positive for Shanna. Patient also had MRSA bacteremia and ESBL E. coli and Proteus mirabilis in the urine. Follow blood culture so far has shown no growth, ID service is following. Afebrile, hemodynamically stable, is awake, he is following simple command, in no acute distress Objective - Vital Signs Vital signs: Vital Signs Temp 98.0 F 09/19/19 08:00 Pulse 89 09/19/19 11:00 Resp 24 09/19/19 11:00 BP 140/81 09/19/19 11:00 Pulse Ox 92 L 09/19/19 11:00 Intake & Output 09/18/19 09/19/19 09/19/19 18:59 06:59 18:59 Intake Total 935 1325 850 Output Total 4550 1165 580 Balance -3615 160 270 Weight 74.3 kg Intake: IV 295 560 450 Cefepime 2 gm In Sodium 100 100 100 Chloride 0.9% 100 ml @ 200 mls/hr IVPB Q12HR [facility] Rx#:[id number] Sodium Chloride 0.9% 1, 180 210 100 000 ml @ 10 mls/hr IV . Q24H [facility] Rx#:[id number] Vancomycin 1,000 mg In 250 Sodium Chloride 0.9% 250 ml @ 125 mls/hr IVPB Q12HR [facility] Rx#:[id number] Vancomycin 1,250 mg In 250 Sodium Chloride 0.9% 250 ml @ 125 mls/hr IVPB Q12H [facility] Rx#:[id number] pressure bag 15 Intake, IV Titration 100 Amount Propofol 1,000 mg In 100 Empty Bag 1 bag @ Titrate IV .Q0M [facility] Rx#: [id number] Tube Feeding 450 675 270 Other 90 90 130 Output: Urine 4550 1165 580 Other: Voiding Method Indwelling Catheter Indwelling Catheter Indwelling Catheter ABP, PAP, CO, CI - Last Documented Arterial Blood Pressure 95/80 - Exam GENERAL EXAM: Alert, nonverbal, 59-year-old white male, cachectic currently on the room air with a pulse ox of 93%, patient has a very weak cough HEAD: Normocephalic/atraumatic. EYES: Normal reaction of pupils, equal size. Conjunctiva pink, sclera white. NOSE: Clear with pink turbinates. THROAT: No erythema or exudates. NECK: No masses, no JVD, no thyroid enlargement, no adenopathy. CHEST: No chest wall deformity. Symmetrical expansion. LUNGS: Equal air entry with diffuse rhonchi throughout CVS: Regular rate and rhythm, normal S1 and S2, no gallops, no murmurs, no rubs ABDOMEN: Soft, nontender. No hepatosplenomegaly, normal bowel sounds, no guarding or rigidity. PEG tube present in the left upper abdomen, feedings are on hold right now EXTREMITIES: No clubbing, no edema, no cyanosis, 2+ pulses and upper and lower extremities. Chronic contractures involving upper and lower extremities, muscle weakness and overall rigidity MUSCULOSKELETAL: Chronic contractures, muscle wasting SPINE: No scoliosis or deformity SKIN: No rashes CENTRAL NERVOUS SYSTEM: Alert, unable to assess orientation, patient is nonverbal, he is able to nod his head yes to simple questions - Labs CBC & Chem 7: 09/19/19 04:50 09/19/19 04:50 Labs: Abnormal Lab Results - Last 24 Hours (Table) 09/18/19 09/18/19 09/18/19 Range/Units 12:14 18:31 23:56 WBC (3.8-10.6) k/uL RBC (4.30-5.90) m/uL Hgb (13.0-17.5) gm/dL Hct (39.0-53.0) % RDW (11.5-15.5) % Plt Count (150-450) k/uL Neutrophils # (1.3-7.7) k/uL Chloride (98-107) mmol/L Creatinine (0.66-1.25) mg/dL Glucose (74-99) mg/dL POC Glucose (mg/dL) 112 H 111 H 107 H (75-99) mg/dL Calcium (8.4-10.2) mg/dL 09/19/19 09/19/19 09/19/19 Range/Units 04:50 04:50 06:03 WBC 11.2 H (3.8-10.6) k/uL RBC 3.44 L (4.30-5.90) m/uL Hgb 8.8 L (13.0-17.5) gm/dL Hct 28.4 L (39.0-53.0) % RDW 19.5 H (11.5-15.5) % Plt Count 503 H (150-450) k/uL Neutrophils # 9.0 H (1.3-7.7) k/uL Chloride 109 H (98-107) mmol/L Creatinine 0.59 L (0.66-1.25) mg/dL Glucose 104 H (74-99) mg/dL POC Glucose (mg/dL) 113 H (75-99) mg/dL Calcium 8.2 L (8.4-10.2) mg/dL Microbiology - Last 24 Hours (Table) 09/13/19 11:00 Fungal Culture - Preliminary Bronchoalviolar Lavage - Right Shanna glabrata 09/16/19 15:00 Blood Culture - Preliminary Blood No Growth after 48 hours 09/12/19 04:41 Blood Culture - Final Blood No Growth after 144 hours Assessment and Plan Plan: Assessment: #1. Acute hypoxemic respiratory failure requiring intubation and mechanical ventilation on 09/13/2019 through 09/18/2019. Patient has bilateral pneumonia and bronchial wash cultures showed MRSA and pseudomonas aeruginosa #2. MRSA bacteremia #3. Suspect chronic aspiration, despite nothing by mouth status the patient is being fed by a PEG tube #4. Urinary tract infection related to ESBL E. coli and Proteus mirabilis #5. Severe multiple sclerosis with cognitive impairment, speech impairment, muscle atrophy, rigidity, chronic contractures, urinary and bowel incontinence gait impairment #6. History of recurrent urinary tract infections including with ESBL organisms and pseudomonal infections #7. Recent hospitalization in July for urinary tract infection with sepsis and urine culture was positive for ESBL E. coli #8. Chronic dysphagia, patient has a PEG tube #9. Multiple hospitalizations related to history of negative bacteremia, recurrent urinary tract infections #10. Poor baseline functioning status, patient is bedridden, and he resides in a penit[facility]iary #11. Diarrhea, improved #12. Anemia secondary to acute critical illness in addition to dilution, and phlebotomy. Patient has been given IV iron supplementation Plan: Maintain aspiration precautions, so far patient has tolerated extubation quite well, he is actually not requiring any supplemental oxygen, however the concern remains about patient being able to generate sufficient cough to clear his secretions. Strict nothing by mouth, he is tolerating tube feedings, his diarrhea has improved, vital signs stable. No fever, repeat blood cultures are negative thus far, patient really remains on combination of cefepime and vancomycin, ID service is following. Continue aggressive pulmonary toileting, breathing treatments deep suctioning if needed. His chest x-ray has been reviewed showing right lower lobe consolidation and diffuse increased lung markings with mild volume overload. Patient has been diuresed, he has put out 5700 mL and urine output and he is in -3400 mL of fluid in the last 24 hours. Doing well currently, we'll continue to monitoring, long-term prognosis is extremely guarded I performed a history & physical examination of the patient and discussed their management with my nurse practitioner, Naheed Pace. I reviewed the nurse practitioner's note and agree with the documented findings and plan of care. Lung sounds are positive for diffuse rhonchi throughout the lung prater. The findings and the impression was discussed with the patient. I attest to the documentation by the nurse practitioner. Time with Patient: Less than 30
[2019-09-19 11:52] LABS: Glucose,Whole Blood 119 mg/dL (75-99)
[2019-09-19] MEDS: ACETAMINOPHEN TAB 325 MG TAB PO PRN (15:00)
--- NOTE | 2019-09-19 15:58 | P.PN ---
Subjective Progress Note Date: 09/19/19 Principal diagnosis: SOB Patient was successfully extubated yesterday, he is done fairly well since extubation, currently is on room air, with a pulse ox of 92-93%, afebrile, hemo dynamically stable, cough is weak, and patient still has trouble clearing secretions. No pain. Objective - Vital Signs Vital signs: Vital Signs Temp 96.9 F L 09/19/19 12:00 Pulse 89 09/19/19 15:00 Resp 28 H 09/19/19 15:00 BP 134/87 09/19/19 15:00 Pulse Ox 93 L 09/19/19 15:00 Intake & Output 09/18/19 09/19/19 09/19/19 18:59 06:59 18:59 Intake Total 935 1325 1175 Output Total 4550 1165 1255 Balance -3615 160 -80 Weight 74.3 kg Intake: IV 295 560 530 Cefepime 2 gm In Sodium 100 100 100 Chloride 0.9% 100 ml @ 200 mls/hr IVPB Q12HR [facility] Rx#:[id number] Sodium Chloride 0.9% 1, 180 210 180 000 ml @ 10 mls/hr IV . Q24H [facility] Rx#:[id number] Vancomycin 1,000 mg In 250 Sodium Chloride 0.9% 250 ml @ 125 mls/hr IVPB Q12HR [facility] Rx#:[id number] Vancomycin 1,250 mg In 250 Sodium Chloride 0.9% 250 ml @ 125 mls/hr IVPB Q12H [facility] Rx#:[id number] pressure bag 15 Intake, IV Titration 100 Amount Propofol 1,000 mg In 100 Empty Bag 1 bag @ Titrate IV .Q0M [facility] Rx#: [id number] Tube Feeding 450 675 405 Other 90 90 240 Output: Urine 4550 1165 1255 Other: Voiding Method Indwelling Catheter Indwelling Catheter Indwelling Catheter ABP, PAP, CO, CI - Last Documented Arterial Blood Pressure 95/80 - Exam GENERAL EXAM: Alert, nonverbal, cachectic currently on the room air with a pulse ox of 93%, HEAD: Normocephalic/atraumatic. EYES: Normal reaction of pupils, equal size. Conjunctiva pink, sclera white. NOSE: Clear with pink turbinates. THROAT: No erythema or exudates. NECK: No masses, no JVD, no thyroid enlargement, no adenopathy. CHEST: No chest wall deformity. Symmetrical expansion. LUNGS: Equal air entry with diffuse rhonchi throughout CVS: Regular rate and rhythm, normal S1 and S2, no gallops, no murmurs, no rubs ABDOMEN: Soft, nontender. No hepatosplenomegaly, normal bowel sounds, no guarding or rigidity. PEG tube present in the left upper abdomen, feedings are on hold right now EXTREMITIES: No clubbing, no edema, no cyanosis, 2+ pulses and upper and lower extremities. Chronic contractures involving upper and lower extremities, muscle weakness and overall rigidity MUSCULOSKELETAL: Chronic contractures, muscle wasting SPINE: No scoliosis or deformity SKIN: No rashes CENTRAL NERVOUS SYSTEM: Alert, unable to assess orientation, patient is nonverbal, he is able to nod his head yes to simple questions - Labs CBC & Chem 7: 09/19/19 04:50 09/19/19 04:50 Labs: Abnormal Lab Results - Last 24 Hours (Table) 09/18/19 09/18/19 09/19/19 Range/Units 18:31 23:56 04:50 WBC 11.2 H (3.8-10.6) k/uL RBC 3.44 L (4.30-5.90) m/uL Hgb 8.8 L (13.0-17.5) gm/dL Hct 28.4 L (39.0-53.0) % RDW 19.5 H (11.5-15.5) % Plt Count 503 H (150-450) k/uL Neutrophils # 9.0 H (1.3-7.7) k/uL Chloride (98-107) mmol/L Creatinine (0.66-1.25) mg/dL Glucose (74-99) mg/dL POC Glucose (mg/dL) 111 H 107 H (75-99) mg/dL Calcium (8.4-10.2) mg/dL 09/19/19 09/19/19 09/19/19 Range/Units 04:50 06:03 11:41 WBC (3.8-10.6) k/uL RBC (4.30-5.90) m/uL Hgb (13.0-17.5) gm/dL Hct (39.0-53.0) % RDW (11.5-15.5) % Plt Count (150-450) k/uL Neutrophils # (1.3-7.7) k/uL Chloride 109 H (98-107) mmol/L Creatinine 0.59 L (0.66-1.25) mg/dL Glucose 104 H (74-99) mg/dL POC Glucose (mg/dL) 113 H 119 H (75-99) mg/dL Calcium 8.2 L (8.4-10.2) mg/dL Microbiology - Last 24 Hours (Table) 09/13/19 11:00 Fungal Culture - Preliminary Bronchoalviolar Lavage - Right Shanna glabrata 09/16/19 15:00 Blood Culture - Preliminary Blood No Growth after 48 hours Assessment and Plan Plan: MRSA and pseudomonas pneumonia with sepsis on admission and Acute hypoxic respiratory failure - ID recs: vanco and cefepime, already has PICC line - follow CXR till clear - Pulm recs, vent management per pulm - Pulm hygeine - sister does not want trach ESBL e coli and proteus UTI - on Cefepime and vanco - repeat culture negative and appears infection cleared - ID recs - Change aggarwal once monthly - aggarwal care MRSA bacteremia - continue with vanco - repeat cultures negative Anemia, likely dilutaion - Feritin low normal, IV FE X 3 doses - follow CBC Severe multiple sclerosis with functional quadriplegia, inability to speak, impair swallowed with chronic aspiration - supportive care - frequent turns - continue tube feedings Chronic dysphagia with PEG tube - continue tube feedings, suggest continuous feedings at discharge - hear of bed >30 degrees. Multiple hospital admissions for resistant urinary tract infection diarrhea, resolved Poor overall prognosis DVT prophylaxis: Heparin Discussed with: Patient, nursing Anticipated discharge: 2-[address]: [facility] A total of 25 minutes was spent on the care of this complex patient more than 50% of the time was spent in counseling and care coordination.
[2019-09-19 18:22] LABS: Glucose,Whole Blood 110 mg/dL (75-99)
--- NOTE | 2019-09-19 22:58 | PN ---
PROGRESS NOTE DATE OF SERVICE: 09/19/2019 REASON FOR FOLLOWUP: MRSA bacteremia and pneumonia. INTERVAL HISTORY: The patient is currently afebrile. The patient is breathing comfortably. Currently on room air, hemodynamically stable. Tolerating his tube feeds. No vomiting or diarrhea reported by the nursing staff. PHYSICAL EXAMINATION: Blood pressure is 133/82 with a pulse of 96, temperature 98.8. He is 94% on 2 L nasal cannula. General description is a middle-aged male lying in bed in no distress. RESPIRATORY SYSTEM: Unlabored breathing with decreased breath sounds at the base. No wheeze. HEART: S1, S2. Regular rate and rhythm. ABDOMEN: Soft. No tenderness. LABS: Hemoglobin 8.8, white count 11.2, BUN of 15, creatinine 0.59. DIAGNOSTIC IMPRESSION AND PLAN: Patient with methicillin-resistant Staphylococcus aeruginosa bacteremia. Source is pneumonia. Final blood culture has been negative. Sputum also grew some pseudomonas. Patient is covered with vancomycin to continue with the plan to finish therapy with IV vancomycin for at least another 2 weeks and monitor his clinical course closely. on discharge. Continue with supportive care. MMODL / IJN: [id number] /
[2019-09-19 23:41] LABS: Glucose,Whole Blood 112 mg/dL (75-99)
[2019-09-20] MEDS: IPRATROPIUM-ALBUTEROL 3 ML NEB INHALATION SCH ×5 (03:09→20:11)
[2019-09-20 05:04] LABS: Anisocytosis Moderate; Basophils % (A) 0 %; Eosinophils # (A) 0.4 k/uL (0-0.7); Eosinophils % (A) 3 %; HGB 9.1 gm/dL (13.0-17.5); Hypochromasia Marked; Lymphocytes % (A) 7 %; MCH 26.2 pg (25.0-35.0); MCHC 31.2 g/dL (31.0-37.0); MCV 84.1 fL (80.0-100.0); Mean Platelet Volume 7.7; Monocytes # (A) 0.6 k/uL (0-1.0); Monocytes % (A) 4 %; Neutrophils # (A) 11.9 k/uL (1.3-7.7); Neutrophils % (A) 85 %; Platelet Count 546 k/uL (150-450); RBC 3.45 m/uL (4.30-5.90); RDW 20.2 % (11.5-15.5)
[2019-09-20 05:24] LABS: African American GFR (CKD) >90 (>60 ml/min/1.73 sqM); Anion Gap 4 mmol/L; Blood Urea Nitrogen 15 mg/dL (9-20); Calcium 8.3 mg/dL (8.4-10.2); Carbon Dioxide 25 mmol/L (22-30); Chloride 109 mmol/L (98-107); Glucose 117 mg/dL (74-99); Non-African American GFR(CKD) >90 (>60 ml/min/1.73 sqM); Potassium 3.7 mmol/L (3.5-5.1); Sodium 138 mmol/L (137-145)
[2019-09-20 05:59] LABS: Glucose,Whole Blood 127 mg/dL (75-99)
[2019-09-20] MEDS ORDERED: POTASSIUM BICARBONATE/CIT AC 20 MEQ TABLET.EFF NG-TUBE SCH (06:00)
--- NOTE | 2019-09-20 06:06 | XR ---
EXAMINATION TYPE: XR chest 1V DATE OF EXAM: 09/20/2019 HISTORY: pneumonia. REFERENCE: Previous study dated 09/19/2019. FINDINGS: The patient's right basilic PICC line remains in place. Its tip is at the cavoatrial juncti on. The heart is mildly enlarged. There is vascular congestion or pulmonary edema. This may have worsened slightly from previous. No definite effusions are seen. IMPRESSION: MILD WORSENING IN THE APPEARANCE OF THE PATIENT'S CONGESTIVE HEART FAILURE.
[2019-09-20] MEDS: CEFEPIME 2 GM in SODIUM CHLORIDE 0.9% 100 ML IVPB SCH ×2 (09:40→20:55)
[2019-09-20] MEDS: HEPARIN SODIUM,PORCINE 5,000 UNIT/ML 1 ML VIAL SQ SCH ×2 (09:41→22:04)
[2019-09-20] MEDS: PANTOPRAZOLE SODIUM 40 MG GRANULE PKT PEG/G-TUBE SCH (09:42)
[2019-09-20] MEDS: ASCORBIC ACID 500 MG TAB PEG/G-TUBE SCH (09:42)
[2019-09-20] MEDS: AMANTADINE HCL 100 MG/10 ML CUP PO SCH ×2 (09:42→22:04)
[2019-09-20] MEDS: CHOLECALCIFEROL 1,000 UNIT TAB PEG/G-TUBE SCH (09:43)
[2019-09-20] MEDS: BACLOFEN 10 MG TAB PEG/G-TUBE SCH ×3 (09:43→22:04)
[2019-09-20] MEDS: SODIUM CHLORIDE 0.9% 1,000 ML IV SCH (09:46)
[2019-09-20] MEDS: VANCOMYCIN 1,000 MG in SODIUM CHLORIDE 0.9% 250 ML IVPB SCH ×2 (09:46→20:58)
--- NOTE | 2019-09-20 10:07 | P.PN ---
Subjective Progress Note Date: 09/20/19 This is 59-year-old white male patient of resident of a local prison, with the history of severe MS, poor baseline functioning status, chronic contractures of lower extremities, nonambulatory, patient is essentially bedridden and nonverbal. We have seen patient in consultation during his previous admissions for complications related to sepsis secondary to recurrent urinary tract infections related to Pseudomonas, gram-negative bacteremia, ESBL producing E. coli in the urine. Most recently in July 2019 she was hospitalized for gram- negative sepsis with urine cultures positive for ESBL producing E. coli. Patient was treated, and improved, [facility], yesterday on 09/08/2019 patient presents to the hospital per EMS evaluation of hypoxemia, less of breath, and audible congestion, he was placed on the 100% nonrebreather, pulse ox is 95%, she was febrile on admission, with a temp of 103.0F. Chest x-ray was taken showing mild right-sided perihilar infiltrate, and mild left lower lobe pneumonia that appears to be new since his last admission and his last chest x-ray on 07/31/2019. Admission lab work showed a white blood cell count of 9.4, hemoglobin of 13.8, sodium of 133, potassium is 5.0, chloride is 101, CO2 is 21, B1 is 21 creatinine 0.71, troponin was negative 1 is 0.016, urinalysis was positive for moderate amount of blood, large amount of leuks, white blood cells in clumps, rare bacteria, culture is pending, influenza screen was negative. Patient was started on a combination of Zosyn and vancomycin, breathing treatments, he remains nothing by mouth, he is being fed via the PEG tube. He seen this morning in the intensive care unit, remains on a percent nonrebreather mask, his cough is very weak, he is not able to clear secretions, and he is audibly congested. Given a dose of IV Lasix this morning for chest congestion, diuresed, however not sounding significantly better. On 09/10/2017 patient seen in follow-up in the intensive care unit, he is awake, appears less dyspneic on today's exam, FiO2 is down to 12 L per high flow nasal cannula, oxygen 98%, hemodynamically stable, tachypneic shallow breaths, but no acute distress, low-grade fevers, sinus tachycardia on the monitor. Still congested, although sounding better on today's exam, remains on antibiotics, she was switched from Zosyn to Invanz, continues on vancomycin, urine culture is positive for gram-negative bacilli, final cultures pending, blood cultures are positive for staph aureus. Today's labs have been reviewed including cell count 8.5, hemoglobin of 10.2, platelet count is 325, sodium is 139, potassium 3.4, chloride is 112, CO2 is 18, BUN 17 creatinine 0.84. Registered dietitian has been consulted for evaluation of nutritional needs, and we anticipate starting tube feedings today, the continuous feeding on the feeding pump. His chest x- ray showed worsening new moderate interstitial pulmonary edema and the more confluent right-sided opacities. On 09/11/2019 patient seen in follow-up in the intensive care unit, patient is alert, he is nonverbal, she follows simple command, his cough is very weak, and patient is still audibly congested, and not able to bring up any phlegm, remains on high flow oxygen, currently at 12 L with a pulse ox of 97%, slightly tachycardic and the heart rate is ranging from 105-112 BPM, he is afebrile, hemodynamically patient is stable, tube feedings have been resumed, and she is on continuous tube feedings via feeding pump, with a viral AF at a rate is 65 ML per hour, with standard water flushes. Patient remains on antibiotics with Invanz and vancomycin, urine culture revealed 2 different gram-negative organisms with Proteus mirabilis and ESBL E. coli, both susceptible to ertapenem. Blood culture from 09/08/2019 was positive for Staphylococcus aureus, although blood cultures have been done, and so far are negative, his labs have been reviewed, showing white blood cell count of 13.5, hemoglobin of 10.8, sodium is 144, potassium is 3.3, chloride is 112, CO2 is 21, BUN is 15, creatinine 0.67. Patient has been having intermittent low-grade fevers, last one last night at 2000, with a temp of 99.8F, afebrile this morning. On 09/12/2019 patient seen in follow-up in the intensive care unit, he is on 10 L of oxygen, his pulse ox of 98%, a low-grade fever this morning, tachycardic in sinus mechanism with a rate of 112 BPM, patient was noted to be more short of breath, remains congested, his cough is weak, patient is unable to clear secretions, blood gas was then obtained on 11 L high flow oxygen, and review pO2 of 81, pCO2 of 35 and pH of 7.48. Patient remains on Invanz and vancomycin for evidence of ESBL E. coli, Proteus mirabilis in the urine culture, patient also had MRSA bacteremia, morning his follow-up blood culture from 09/10/2019 also shows presumptive MRSA, final culture is pending. Patient is on tube feedings, is having loose stools, stool for C. diff was sent and the results are pending at this time. Remains strict nothing by mouth. No new chest x-ray today, yesterday's chest x-ray showed scattered air space infiltrates bilaterally, without significant change from prior chest x-rays. On 09/19/2019 patient seen in follow-up in the intensive care unit, he was successfully extubated yesterday, he is done fairly well since extubation, currently is on room air, with a pulse ox of 92-93%, afebrile, hemodynamically stable, off is weak, and patient still has trouble generating sufficient cough to clear secretions. Does not appear to be any acute distress, lung sounds reveal diffuse rhonchi, he remains nothing by mouth, he is being fed through his PEG tube, remains on breathing treatments, and antibiotics with cefepime and vancomycin. BAL cultures were positive for MRSA, fungal cultures are positive for Shanna. Patient also had MRSA bacteremia and ESBL E. coli and Proteus mirabilis in the urine. Follow blood culture so far has shown no growth, ID service is following. Afebrile, hemodynamically stable, is awake, he is following simple command, in no acute distress On 09/20/2019, Mr. Marvin is awake. He is on oxygen at 1-1/2 L per minute nasal cannula. The chest x-ray is showing right lower/middle lobe pulmonary infiltrate. Limited improvement in terms of the chest x-ray findings or the past few days. Nevertheless, he seems to be stable and tolerated extubation. His cough is weak. He still is congested. We are unable to do deep suctioning as the patient does not tolerate that. Does not seem to be in significant respiratory distress. His antibiotic coverage includes a combination of cefepime and vancomycin. No fever. No chills. Hemodynamically stable. The follow-up blood cultures have been negative. He is afebrile. The white cell count is at 14. Renal function stable. He is receiving enteral feeding for nutritional support which is able to tolerate without any major difficulties. No other significant events overnight. He is on a scopolamine patch. He is receiving IV fluids at the rate of 10 mL an hour. Objective - Vital Signs Vital signs: Vital Signs Temp 98.7 F 09/20/19 08:00 Pulse 105 H 09/20/19 09:00 Resp 29 H 09/20/19 09:00 BP 127/84 09/20/19 09:00 Pulse Ox 91 L 09/20/19 09:00 Intake & Output 09/19/19 09/20/19 09/20/19 18:59 06:59 18:59 Intake Total 1430 1220 260 Output Total 1435 1138 375 Balance -5 82 -115 Weight 73.4 kg Intake: IV 590 590 140 Cefepime 2 gm In Sodium 100 100 100 Chloride 0.9% 100 ml @ 200 mls/hr IVPB Q12HR [facility] Rx#:[id number] Sodium Chloride 0.9% 1, 240 240 40 000 ml @ 10 mls/hr IV . Q24H [facility] Rx#:[id number] Vancomycin 1,000 mg In 250 250 Sodium Chloride 0.9% 250 ml @ 125 mls/hr IVPB Q12HR [facility] Rx#:[id number] Tube Feeding 540 540 90 Other 300 90 30 Output: Urine 1435 1138 375 Other: Voiding Method Indwelling Catheter Indwelling Catheter ABP, PAP, CO, CI - Last Documented Arterial Blood Pressure 95/80 - Exam GENERAL EXAM: Intubated, sedated, 59-year-old male patient, cachectic. intubated on a mechanical ventilated and is calm and comfortable. HEAD: Normocephalic/atraumatic. EYES: Normal reaction of pupils, equal size. Conjunctiva pink, sclera white. NOSE: Clear with pink turbinates. THROAT: No erythema or exudates. NECK: No masses, no JVD, no thyroid enlargement, no adenopathy. CHEST: No chest wall deformity. Symmetrical expansion. LUNGS: Equal air entry with scattered rhonchi throughout CVS: Regular rate and rhythm, normal S1 and S2, no gallops, no murmurs, no rubs ABDOMEN: Soft, nontender. No hepatosplenomegaly, normal bowel sounds, no guarding or rigidity. PEG tube present in the left upper abdomen, exit site clean and dry EXTREMITIES: No clubbing, no edema, no cyanosis, 2+ pulses and upper and lower extremities. Chronic contractures involving upper and lower extremities MUSCULOSKELETAL: Chronic contractures, muscle wasting SPINE: No scoliosis or deformity SKIN: No rashes CENTRAL NERVOUS SYSTEM: Intubated, sedated.the patient has chronic contractures and muscle atrophy related to his MS both in the upper and lower extremities. Pupils are round 4 mm in size and sluggishly reactive to light. No facial asymmetry. - Labs CBC & Chem 7: 09/20/19 05:00 09/20/19 05:00 Labs: Abnormal Lab Results - Last 24 Hours (Table) 09/19/19 09/19/19 09/19/19 Range/Units 11:41 18:11 23:29 WBC (3.8-10.6) k/uL RBC (4.30-5.90) m/uL Hgb (13.0-17.5) gm/dL Hct (39.0-53.0) % RDW (11.5-15.5) % Plt Count (150-450) k/uL Neutrophils # (1.3-7.7) k/uL Chloride (98-107) mmol/L Creatinine (0.66-1.25) mg/dL Glucose (74-99) mg/dL POC Glucose (mg/dL) 119 H 110 H 112 H (75-99) mg/dL Calcium (8.4-10.2) mg/dL 09/20/19 09/20/19 09/20/19 Range/Units 05:00 05:00 05:47 WBC 14.0 H (3.8-10.6) k/uL RBC 3.45 L (4.30-5.90) m/uL Hgb 9.1 L (13.0-17.5) gm/dL Hct 29.0 L (39.0-53.0) % RDW 20.2 H (11.5-15.5) % Plt Count 546 H (150-450) k/uL Neutrophils # 11.9 H (1.3-7.7) k/uL Chloride 109 H (98-107) mmol/L Creatinine 0.55 L (0.66-1.25) mg/dL Glucose 117 H (74-99) mg/dL POC Glucose (mg/dL) 127 H (75-99) mg/dL Calcium 8.3 L (8.4-10.2) mg/dL Microbiology - Last 24 Hours (Table) 09/16/19 15:00 Blood Culture - Preliminary Blood No Growth after 72 hours 09/13/19 11:00 Fungal Culture - Preliminary Bronchoalviolar Lavage - Right Shanna glabrata Assessment and Plan Plan: #1. Acute hypoxemic respiratory failure requiring intubation and mechanical ventilation on 09/13/2019 . The patient has bilateral pneumonia and the primary cultures are showing staph aureus/MRSA and pseudomonas aeruginosa. chest x-ray stable. Able to tolerate a spontaneous breathing trial. I'm not absolutely sure about extubation as the patient has some rest or secretions and has a weak cough. We are going to at least give him a trial of extubation today. Family has declined tracheostomy tube insertion.The chest x-ray findings are stable #2. MRSA sepsis secondary to above, currently afebrile and the repeat blood cultures of been negative #3. Suspect chronic aspiration, despite nothing by mouth status the patient is being fed by a PEG tube #4. Urinary tract infection related to ESBL E. coli and Proteus mirabiliscurrently on IV cefepime #5 Severe multiple sclerosis with cognitive impairment, speech impairment, muscle atrophy, rigidity, chronic contractures, urinary and bowel incontinence gait impairment #6. History of recurrent urinary tract infections including with ESBL organisms and pseudomonal infections #7. Recent hospitalization in July for urinary tract infection with sepsis and urine culture was positive for ESBL E. coli #8. Chronic dysphagia, patient has a PEG tube, receiving enteral feeding for nutritional support via a PEG tube #9. Multiple hospitalizations related to history of negative bacteremia, recurrent urinary tract infections #10. Poor baseline functioning status, patient is bedridden, and he [facility] in a [facility] #11 diarrhea, improved, and the fecal management system has been removed #12 anemia, likely secondary to acute disease in addition to dilution and phlebotomy. given IV iron. Hemoglobin is at 9.1 plan Continue antibiotics. Chest PT Pulmonary toileting Chest x-ray was noted Keep same antibiotic coverage Patient has been extubated for around 48 hours. He remains stable. He is at high risk of having recurrent respiratory failure because of his weak cough. In any rate, he is on while for the past 48 hours without any signs of any respiratory distress. I'm going to transfer him today medical surgical floor. We will continue the antibiotic coverage. We'll monitor his x-ray. Aspiration precautions. Keep the head of the bed elevated at 30. Check residuals in terms of his enteral feeding. Hemoglobin stable at 9.1. No hemodynamic instability. We'll follow.
[2019-09-20 12:07] LABS: Glucose,Whole Blood 110 mg/dL (75-99)
--- NOTE | 2019-09-20 12:19 | P.PN ---
Subjective Progress Note Date: 09/20/19 Principal diagnosis: SOB Doing well, still with weak cough. No episodes of hypoxia. Objective - Vital Signs Vital signs: Vital Signs Temp 98.7 F 09/20/19 08:00 Pulse 96 09/20/19 10:00 Resp 26 H 09/20/19 10:00 BP 130/79 09/20/19 11:00 Pulse Ox 92 L 09/20/19 10:00 Intake & Output 09/19/19 09/20/19 09/20/19 18:59 06:59 18:59 Intake Total 1430 1220 575 Output Total 1435 1138 595 Balance -5 82 -20 Weight 73.4 kg Intake: IV 590 590 410 Cefepime 2 gm In Sodium 100 100 100 Chloride 0.9% 100 ml @ 200 mls/hr IVPB Q12HR [facility] Rx#:[id number] Sodium Chloride 0.9% 1, 240 240 60 000 ml @ 10 mls/hr IV . Q24H [facility] Rx#:[id number] Vancomycin 1,000 mg In 250 250 250 Sodium Chloride 0.9% 250 ml @ 125 mls/hr IVPB Q12HR [facility] Rx#:[id number] Tube Feeding 540 540 135 Other 300 90 30 Output: Urine 1435 1138 595 Other: Voiding Method Indwelling Catheter Indwelling Catheter Indwelling Catheter ABP, PAP, CO, CI - Last Documented Arterial Blood Pressure 95/80 - Exam GENERAL EXAM: Alert, nonverbal, cachectic currently on the room air with a pulse ox of 93%, HEAD: Normocephalic/atraumatic. EYES: Normal reaction of pupils, equal size. Conjunctiva pink, sclera white. NOSE: Clear with pink turbinates. THROAT: No erythema or exudates. NECK: No masses, no JVD, no thyroid enlargement, no adenopathy. CHEST: No chest wall deformity. Symmetrical expansion. LUNGS: Equal air entry with diffuse rhonchi throughout CVS: Regular rate and rhythm, normal S1 and S2, no gallops, no murmurs, no rubs ABDOMEN: Soft, nontender. No hepatosplenomegaly, normal bowel sounds, no guarding or rigidity. PEG tube present in the left upper abdomen, feedings are on hold right now EXTREMITIES: No clubbing, no edema, no cyanosis, 2+ pulses and upper and lower extremities. Chronic contractures involving upper and lower extremities, muscle weakness and overall rigidity MUSCULOSKELETAL: Chronic contractures, muscle wasting SPINE: No scoliosis or deformity SKIN: No rashes CENTRAL NERVOUS SYSTEM: Alert, unable to assess orientation, patient is nonverbal, he is able to nod his head yes to simple questions - Labs CBC & Chem 7: 09/20/19 05:00 09/20/19 05:00 Labs: Abnormal Lab Results - Last 24 Hours (Table) 09/19/19 09/19/19 09/20/19 Range/Units 18:11 23:29 05:00 WBC 14.0 H (3.8-10.6) k/uL RBC 3.45 L (4.30-5.90) m/uL Hgb 9.1 L (13.0-17.5) gm/dL Hct 29.0 L (39.0-53.0) % RDW 20.2 H (11.5-15.5) % Plt Count 546 H (150-450) k/uL Neutrophils # 11.9 H (1.3-7.7) k/uL Chloride (98-107) mmol/L Creatinine (0.66-1.25) mg/dL Glucose (74-99) mg/dL POC Glucose (mg/dL) 110 H 112 H (75-99) mg/dL Calcium (8.4-10.2) mg/dL 09/20/19 09/20/19 09/20/19 Range/Units 05:00 05:47 11:55 WBC (3.8-10.6) k/uL RBC (4.30-5.90) m/uL Hgb (13.0-17.5) gm/dL Hct (39.0-53.0) % RDW (11.5-15.5) % Plt Count (150-450) k/uL Neutrophils # (1.3-7.7) k/uL Chloride 109 H (98-107) mmol/L Creatinine 0.55 L (0.66-1.25) mg/dL Glucose 117 H (74-99) mg/dL POC Glucose (mg/dL) 127 H 110 H (75-99) mg/dL Calcium 8.3 L (8.4-10.2) mg/dL Microbiology - Last 24 Hours (Table) 09/16/19 15:00 Blood Culture - Preliminary Blood No Growth after 72 hours 09/13/19 11:00 Fungal Culture - Preliminary Bronchoalviolar Lavage - Right Shanna glabrata Assessment and Plan Plan: MRSA and pseudomonas pneumonia with sepsis on admission and Acute hypoxic respiratory failure - ID recs: vanco and cefepime, already has PICC line - follow CXR till clear - Pulm recommending tx to the floor, tx orders placed. - Pulm hygeine ESBL e coli and proteus UTI - on Cefepime and vanco - repeat culture negative and appears infection cleared - ID recs - Change aggarwal once monthly - aggarwal care MRSA bacteremia - continue with vanco - repeat cultures negative Anemia, likely dilutaion - Feritin low normal, IV FE X 3 doses received. - follow CBC Severe multiple sclerosis with functional quadriplegia, inability to speak, impair swallowed with chronic aspiration - supportive care - frequent turns - continue tube feedings Chronic dysphagia with PEG tube - continue tube feedings, suggest continuous feedings at discharge - hear of bed >30 degrees. Multiple hospital admissions for resistant urinary tract infection diarrhea, resolved Poor overall prognosis DVT prophylaxis: Heparin Discussed with: Patient, nursing Anticipated discharge: 2-[address] A total of 25 minutes was spent on the care of this complex patient more than 50% of the time was spent in counseling and care coordination.
[2019-09-20] MEDS: SCOPOLAMINE 1.5MG/72HR PATCH TRANSDERM SCH (16:25)
[2019-09-20] MEDS ORDERED: IPRATROPIUM-ALBUTEROL 3 ML NEB INHALATION PRN (20:14)
[2019-09-20] MEDS ORDERED: ANIDULAFUNGIN 200 MG in SODIUM CHLORIDE 0.9% 200 ML IVPB ONE (22:00)
--- NOTE | 2019-09-20 23:03 | PN ---
PROGRESS NOTE DATE OF SERVICE: 09/20/2019. REASON FOR VISIT: MRSA bacteremia secondary to pneumonia. INTERVAL HISTORY: The patient is currently afebrile. Patient has been breathing comfortably. The patient is hemodynamically stable. No nausea, vomiting, or any diarrhea reported by the nursing staff. On examination, blood pressure is 134/84 with a pulse of 84. Temperature 97.3. He is 96% on 4 L nasal cannula. General description is a middle-aged male lying in bed in no distress. Respiratory system: Unlabored breathing with decreased breath sounds at the bases. No wheeze. Heart S1, S2. Regular rate and rhythm. ABDOMEN: Soft. No tenderness. Extremities: No edema of the feet. LABS: Hemoglobin is 9.1, white count [id number] with a BUN of 15, creatinine 0.55. Bronch culture also showing Shanna glabrata. DIAGNOSTIC IMPRESSION AND PLAN: Patient with MRSA bacteremia secondary to urinary source. Follow up blood culture has been negative. The patient currently has got a PICC line. The patient also grew Pseudomonas. This could be more likely colonized not an infecting pathogen now with worsening of the white count more likely secondary to Shanna glabrata or oropharyngeal candidiasis. We will add Eraxis and discontinue Cefepime. Continue with vancomycin 1 g. Monitor his clinical course closely. MMODL / IJN: [id number] /
[2019-09-20 23:53] LABS: Glucose,Whole Blood 104 mg/dL (75-99)
[2019-09-21] MEDS: SODIUM CHLORIDE 0.9% 1,000 ML IV SCH (03:41)
[2019-09-21 06:15] LABS: Glucose,Whole Blood 112 mg/dL (75-99)
[2019-09-21 07:08] LABS: Anisocytosis Moderate; Basophils % (A) 1 %; Eosinophils # (A) 0.4 k/uL (0-0.7); Eosinophils % (A) 6 %; HCT 28.2 % (39.0-53.0); HGB 8.9 gm/dL (13.0-17.5); Hypochromasia Marked; Lymphocytes # (A) 1.3 k/uL (1.0-4.8); Lymphocytes % (A) 17 %; MCHC 31.6 g/dL (31.0-37.0); MCV 85.5 fL (80.0-100.0); Mean Platelet Volume 8.1; Monocytes # (A) 0.5 k/uL (0-1.0); Monocytes % (A) 6 %; Neutrophils # (A) 5.2 k/uL (1.3-7.7); Neutrophils % (A) 69 %; Platelet Count 580 k/uL (150-450); RDW 20.9 % (11.5-15.5); WBC 7.6 k/uL (3.8-10.6)
--- NOTE | 2019-09-21 07:11 | XR ---
EXAMINATION TYPE: XR chest 1V portable DATE OF EXAM: 09/21/2019 HISTORY: PNM. REFERENCE: Previous study dated 09/20/2019. FINDINGS: There is a right basilic PICC line in place. Its tip is in the SVC on the right. Heart size upper limits of normal. There continues be vascular congestion and mild interstitial david e. This does not represent a significant change. I suspect tiny, bilateral effusions. IMPRESSION: CONTINUING CHANGES OF CONGESTIVE HEART FAILURE.
[2019-09-21 07:16] LABS: African American GFR (CKD) >90 (>60 ml/min/1.73 sqM); Anion Gap 7 mmol/L; Blood Urea Nitrogen 16 mg/dL (9-20); Calcium 8.4 mg/dL (8.4-10.2); Carbon Dioxide 25 mmol/L (22-30); Chloride 108 mmol/L (98-107); Glucose 89 mg/dL (74-99); Magnesium 2.2 mg/dL (1.6-2.3); Non-African American GFR(CKD) >90 (>60 ml/min/1.73 sqM); Phosphorus 3.9 mg/dL (2.5-4.5); Potassium 4.4 mmol/L (3.5-5.1); Sodium 140 mmol/L (137-145)
[2019-09-21] MEDS ORDERED: VANCOMYCIN TROUGH DUE 1 EACH MISC MISCELLANE ONE (08:00)
[2019-09-21] MEDS: IPRATROPIUM-ALBUTEROL 3 ML NEB INHALATION SCH ×4 (08:20→19:21)
[2019-09-21] MEDS: ASCORBIC ACID 500 MG TAB PEG/G-TUBE SCH (09:09)
[2019-09-21] MEDS: CHOLECALCIFEROL 1,000 UNIT TAB PEG/G-TUBE SCH (09:09)
[2019-09-21] MEDS: HEPARIN SODIUM,PORCINE 5,000 UNIT/ML 1 ML VIAL SQ SCH ×2 (09:09→21:19)
[2019-09-21] MEDS: BACLOFEN 10 MG TAB PEG/G-TUBE SCH ×3 (09:10→21:20)
[2019-09-21] MEDS: AMANTADINE HCL 100 MG/10 ML CUP PO SCH ×2 (09:12→21:18)
[2019-09-21] MEDS: PANTOPRAZOLE SODIUM 40 MG GRANULE PKT PEG/G-TUBE SCH (09:13)
[2019-09-21] MEDS: VANCOMYCIN 1,000 MG in SODIUM CHLORIDE 0.9% 250 ML IVPB SCH ×2 (09:13→21:20)
[2019-09-21 11:17] LABS: Glucose,Whole Blood 110 mg/dL (75-99)
--- NOTE | 2019-09-21 13:44 | P.PN ---
Subjective Progress Note Date: 09/21/19 This is 59-year-old white male patient of resident of a local residential, with the history of severe MS, poor baseline functioning status, chronic contractures of lower extremities, nonambulatory, patient is essentially bedridden and nonverbal. We have seen patient in consultation during his previous admissions for complications related to sepsis secondary to recurrent urinary tract infections related to Pseudomonas, gram-negative bacteremia, ESBL producing E. coli in the urine. Most recently in July 2019 she was hospitalized for gram- negative sepsis with urine cultures positive for ESBL producing E. coli. Patient was treated, and improved, discharged back to the residential on 08/2019, yesterday on 09/08/2019 patient presents to the hospital per EMS evaluation of hypoxemia, less of breath, and audible congestion, he was placed on the 100% nonrebreather, pulse ox is 95%, she was febrile on admission, with a temp of 103.0F. Chest x-ray was taken showing mild right-sided perihilar infiltrate, and mild left lower lobe pneumonia that appears to be new since his last admission and his last chest x-ray on 07/31/2019. Admission lab work showed a white blood cell count of 9.4, hemoglobin of 13.8, sodium of 133, potassium is 5.0, chloride is 101, CO2 is 21, B1 is 21 creatinine 0.71, troponin was negative 1 is 0.016, urinalysis was positive for moderate amount of blood, large amount of leuks, white blood cells in clumps, rare bacteria, culture is pending, influenza screen was negative. Patient was started on a combination of Zosyn and vancomycin, breathing treatments, he remains nothing by mouth, he is being fed via the PEG tube. He seen this morning in the intensive care unit, remains on a percent nonrebreather mask, his cough is very weak, he is not able to clear secretions, and he is audibly congested. Given a dose of IV Lasix this morning for chest congestion, diuresed, however not sounding significantly better. On 09/10/2017 patient seen in follow-up in the intensive care unit, he is awake, appears less dyspneic on today's exam, FiO2 is down to 12 L per high flow nasal cannula, oxygen 98%, hemodynamically stable, tachypneic shallow breaths, but no acute distress, low-grade fevers, sinus tachycardia on the monitor. Still congested, although sounding better on today's exam, remains on antibiotics, she was switched from Zosyn to Invanz, continues on vancomycin, urine culture is positive for gram-negative bacilli, final cultures pending, blood cultures are positive for staph aureus. Today's labs have been reviewed including cell count 8.5, hemoglobin of 10.2, platelet count is 325, sodium is 139, potassium 3.4, chloride is 112, CO2 is 18, BUN 17 creatinine 0.84. Registered dietitian has been consulted for evaluation of nutritional needs, and we anticipate starting tube feedings today, the continuous feeding on the feeding pump. His chest x- ray showed worsening new moderate interstitial pulmonary edema and the more confluent right-sided opacities. On 09/11/2019 patient seen in follow-up in the intensive care unit, patient is alert, he is nonverbal, she follows simple command, his cough is very weak, and patient is still audibly congested, and not able to bring up any phlegm, remains on high flow oxygen, currently at 12 L with a pulse ox of 97%, slightly tachycardic and the heart rate is ranging from 105-112 BPM, he is afebrile, hemodynamically patient is stable, tube feedings have been resumed, and she is on continuous tube feedings via feeding pump, with a viral AF at a rate is 65 ML per hour, with standard water flushes. Patient remains on antibiotics with Invanz and vancomycin, urine culture revealed 2 different gram-negative organisms with Proteus mirabilis and ESBL E. coli, both susceptible to ertapenem. Blood culture from 09/08/2019 was positive for Staphylococcus aureus, although blood cultures have been done, and so far are negative, his labs have been reviewed, showing white blood cell count of 13.5, hemoglobin of 10.8, sodium is 144, potassium is 3.3, chloride is 112, CO2 is 21, BUN is 15, creatinine 0.67. Patient has been having intermittent low-grade fevers, last one last night at 2000, with a temp of 99.8F, afebrile this morning. On 09/12/2019 patient seen in follow-up in the intensive care unit, he is on 10 L of oxygen, his pulse ox of 98%, a low-grade fever this morning, tachycardic in sinus mechanism with a rate of 112 BPM, patient was noted to be more short of breath, remains congested, his cough is weak, patient is unable to clear secretions, blood gas was then obtained on 11 L high flow oxygen, and review pO2 of 81, pCO2 of 35 and pH of 7.48. Patient remains on Invanz and vancomycin for evidence of ESBL E. coli, Proteus mirabilis in the urine culture, patient also had MRSA bacteremia, morning his follow-up blood culture from 09/10/2019 also shows presumptive MRSA, final culture is pending. Patient is on tube feedings, is having loose stools, stool for C. diff was sent and the results are pending at this time. Remains strict nothing by mouth. No new chest x-ray today, yesterday's chest x-ray showed scattered air space infiltrates bilaterally, without significant change from prior chest x-rays. On 09/19/2019 patient seen in follow-up in the intensive care unit, he was successfully extubated yesterday, he is done fairly well since extubation, currently is on room air, with a pulse ox of 92-93%, afebrile, hemodynamically stable, off is weak, and patient still has trouble generating sufficient cough to clear secretions. Does not appear to be any acute distress, lung sounds reveal diffuse rhonchi, he remains nothing by mouth, he is being fed through his PEG tube, remains on breathing treatments, and antibiotics with cefepime and vancomycin. BAL cultures were positive for MRSA, fungal cultures are positive for Shanna. Patient also had MRSA bacteremia and ESBL E. coli and Proteus mirabilis in the urine. Follow blood culture so far has shown no growth, ID service is following. Afebrile, hemodynamically stable, is awake, he is following simple command, in no acute distress On 09/20/2019, Mr. Marvin is awake. He is on oxygen at 1-1/2 L per minute nasal cannula. The chest x-ray is showing right lower/middle lobe pulmonary infiltrate. Limited improvement in terms of the chest x-ray findings or the past few days. Nevertheless, he seems to be stable and tolerated extubation. His cough is weak. He still is congested. We are unable to do deep suctioning as the patient does not tolerate that. Does not seem to be in significant respiratory distress. His antibiotic coverage includes a combination of cefepime and vancomycin. No fever. No chills. Hemodynamically stable. The follow-up blood cultures have been negative. He is afebrile. The white cell count is at 14. Renal function stable. He is receiving enteral feeding for nutritional support which is able to tolerate without any major difficulties. No other significant events overnight. He is on a scopolamine patch. He is receiving IV fluids at the rate of 10 mL an hour. 09/21/2019 the patient is quite comfortable. He has a very weak cough. Unable to bring up any sputum. The concern is ongoing mucous plugging in this patient. Nevertheless, over the past 72 hours is done well. He is on 2 L of oxygen by nasal cannula. He remains on the same antibiotic coverage. He seems to be admitted more swollen and edematous and he is going to require some diuretics. He is receiving enteral feeding for nutritional support. He is on a combination of cefepime and vancomycin. He remains hemodynamically stable. He is afebrile. Objective - Vital Signs Vital signs: Vital Signs Temp 97.9 F 09/21/19 04:45 Pulse 92 09/21/19 12:21 Resp 20 09/21/19 04:45 BP 138/78 09/21/19 04:45 Pulse Ox 94 L 09/21/19 08:20 Intake & Output 09/20/19 09/21/19 09/21/19 18:59 06:59 18:59 Intake Total 910 790 180 Output Total 1045 800 Balance -135 -10 180 Intake: IV 460 250 Cefepime 2 gm In Sodium 100 100 Chloride 0.9% 100 ml @ 200 mls/hr IVPB Q12HR [facility] Rx#:[id number] Sodium Chloride 0.9% 1, 110 25 000 ml @ 10 mls/hr IV . Q24H [facility] Rx#:[id number] Vancomycin 1,000 mg In 250 125 Sodium Chloride 0.9% 250 ml @ 125 mls/hr IVPB Q12HR [facility] Rx#:[id number] Tube Feeding 360 540 180 Other 90 Output: Urine 1045 800 Other: Voiding Method Indwelling Catheter Indwelling Catheter Indwelling Catheter # Bowel Movements 0 ABP, PAP, CO, CI - Last Documented Arterial Blood Pressure 95/80 - Exam GENERAL EXAM: Intubated, sedated, 59-year-old male patient, cachectic. intubated on a mechanical ventilated and is calm and comfortable. HEAD: Normocephalic/atraumatic. EYES: Normal reaction of pupils, equal size. Conjunctiva pink, sclera white. NOSE: Clear with pink turbinates. THROAT: No erythema or exudates. NECK: No masses, no JVD, no thyroid enlargement, no adenopathy. CHEST: No chest wall deformity. Symmetrical expansion. LUNGS: Equal air entry with scattered rhonchi throughout CVS: Regular rate and rhythm, normal S1 and S2, no gallops, no murmurs, no rubs ABDOMEN: Soft, nontender. No hepatosplenomegaly, normal bowel sounds, no guarding or rigidity. PEG tube present in the left upper abdomen, exit site clean and dry EXTREMITIES: No clubbing, no edema, no cyanosis, 2+ pulses and upper and lower extremities. Chronic contractures involving upper and lower extremities MUSCULOSKELETAL: Chronic contractures, muscle wasting SPINE: No scoliosis or deformity SKIN: No rashes CENTRAL NERVOUS SYSTEM: Intubated, sedated.the patient has chronic contractures and muscle atrophy related to his MS both in the upper and lower extremities. Pupils are round 4 mm in size and sluggishly reactive to light. No facial asymmetry. - Labs CBC & Chem 7: 09/21/19 05:50 09/21/19 05:52 Labs: Abnormal Lab Results - Last 24 Hours (Table) 09/20/19 09/21/19 09/21/19 Range/Units 23:52 05:50 05:52 RBC 3.30 L (4.30-5.90) m/uL Hgb 8.9 L (13.0-17.5) gm/dL Hct 28.2 L (39.0-53.0) % RDW 20.9 H (11.5-15.5) % Plt Count 580 H (150-450) k/uL Chloride 108 H (98-107) mmol/L Creatinine 0.60 L (0.66-1.25) mg/dL POC Glucose (mg/dL) 104 H (75-99) mg/dL 09/21/19 09/21/19 Range/Units 06:12 11:12 RBC (4.30-5.90) m/uL Hgb (13.0-17.5) gm/dL Hct (39.0-53.0) % RDW (11.5-15.5) % Plt Count (150-450) k/uL Chloride (98-107) mmol/L Creatinine (0.66-1.25) mg/dL POC Glucose (mg/dL) 112 H 110 H (75-99) mg/dL Microbiology - Last 24 Hours (Table) 09/16/19 15:00 Blood Culture - Preliminary Blood No Growth after 96 hours Assessment and Plan Plan: #1. Acute hypoxemic respiratory failure requiring intubation and mechanical ventilation on 09/13/2019 . The patient has bilateral pneumonia and the primary cultures are showing staph aureus/MRSA and pseudomonas aeruginosa. #2. MRSA sepsis secondary to above, currently afebrile and the repeat blood cultures of been negative #3. Suspect chronic aspiration, despite nothing by mouth status the patient is being fed by a PEG tube #4. Urinary tract infection related to ESBL E. coli and Proteus mirabilis currently on IV cefepime #5 Severe multiple sclerosis with cognitive impairment, speech impairment, muscle atrophy, rigidity, chronic contractures, urinary and bowel incontinence gait impairment #6. History of recurrent urinary tract infections including with ESBL organisms and pseudomonal infections #7. Recent hospitalization in July for urinary tract infection with sepsis and urine culture was positive for ESBL E. coli #8. Chronic dysphagia, patient has a PEG tube, receiving enteral feeding for nutritional support via a PEG tube, at the rate of 45 mL an hour #9. Multiple hospitalizations related to history of negative bacteremia, recurrent urinary tract infections #10. Poor baseline functioning status, patient is bedridden, and he resides in a residential #11 diarrhea, improved, and the fecal management system has been removed #12 anemia, likely secondary to acute disease in addition to dilution and phlebotomy. given IV iron. Hemoglobin is at 8.9 plan Continue antibiotics.vancomycin. Keep Eraxis. Cefepime was discontinued by. Chest PT Pulmonary toileting Chest x-ray was noted, findings are stable with improvement in the right lower lobe pulmonary infiltrates. Nevertheless he is a week off and his a day high risk of developing mucous plugging and recurrent respiratory failure. Aggressive pulmonary toileting. We'll continue to follow. Is currently on oxygen at 2 L. Keep same antibiotic coverage , continue vancomycin and Eraxis was also added for a fungalUTI Lasix 40 mg IV push We'll continue to follow. Prognosis poor.
[2019-09-21] MEDS ORDERED: FUROSEMIDE 10 MG/ML 4 ML VIAL IV STA (13:59)
--- NOTE | 2019-09-21 14:02 | P.PN ---
Subjective Progress Note Date: 09/21/19 Principal diagnosis: SOB Patient seems to be more lethargic today, he was not able to cough in response to commands when seen. He was able to do that when he was in the unit. He denied pain. Objective - Vital Signs Vital signs: Vital Signs Temp 97.9 F 09/21/19 04:45 Pulse 92 09/21/19 12:21 Resp 20 09/21/19 04:45 BP 138/78 09/21/19 04:45 Pulse Ox 94 L 09/21/19 08:20 Intake & Output 09/20/19 09/21/19 09/21/19 18:59 06:59 18:59 Intake Total 910 790 180 Output Total 1045 800 Balance -135 -10 180 Intake: IV 460 250 Cefepime 2 gm In Sodium 100 100 Chloride 0.9% 100 ml @ 200 mls/hr IVPB Q12HR [facility] Rx#:[id number] Sodium Chloride 0.9% 1, 110 25 000 ml @ 10 mls/hr IV . Q24H [facility] Rx#:[id number] Vancomycin 1,000 mg In 250 125 Sodium Chloride 0.9% 250 ml @ 125 mls/hr IVPB Q12HR [facility] Rx#:[id number] Tube Feeding 360 540 180 Other 90 Output: Urine 1045 800 Other: Voiding Method Indwelling Catheter Indwelling Catheter Indwelling Catheter # Bowel Movements 0 ABP, PAP, CO, CI - Last Documented Arterial Blood Pressure 95/80 - Exam GENERAL EXAM: Alert, nonverbal, cachectic currently on 2L with a pulse ox of 93%, HEAD: Normocephalic/atraumatic. EYES: Normal reaction of pupils, equal size. Conjunctiva pink, sclera white. NOSE: Clear with pink turbinates. THROAT: No erythema or exudates. NECK: No masses, no JVD, no thyroid enlargement, no adenopathy. CHEST: No chest wall deformity. Symmetrical expansion. LUNGS: Equal air entry with diffuse rhonchi throughout CVS: Regular rate and rhythm, normal S1 and S2, no gallops, no murmurs, no rubs ABDOMEN: Soft, nontender. No hepatosplenomegaly, normal bowel sounds, no guarding or rigidity. PEG tube present in the left upper abdomen, feedings are on hold right now EXTREMITIES: No clubbing, no edema, no cyanosis, 2+ pulses and upper and lower extremities. Chronic contractures involving upper and lower extremities, muscle weakness and overall rigidity MUSCULOSKELETAL: Chronic contractures, muscle wasting SPINE: No scoliosis or deformity SKIN: No rashes CENTRAL NERVOUS SYSTEM: Alert, unable to assess orientation, patient is nonverbal, he is able to nod his head yes to simple questions - Labs CBC & Chem 7: 09/21/19 05:50 09/21/19 05:52 Labs: Abnormal Lab Results - Last 24 Hours (Table) 09/20/19 09/21/19 09/21/19 Range/Units 23:52 05:50 05:52 RBC 3.30 L (4.30-5.90) m/uL Hgb 8.9 L (13.0-17.5) gm/dL Hct 28.2 L (39.0-53.0) % RDW 20.9 H (11.5-15.5) % Plt Count 580 H (150-450) k/uL Chloride 108 H (98-107) mmol/L Creatinine 0.60 L (0.66-1.25) mg/dL POC Glucose (mg/dL) 104 H (75-99) mg/dL 09/21/19 09/21/19 Range/Units 06:12 11:12 RBC (4.30-5.90) m/uL Hgb (13.0-17.5) gm/dL Hct (39.0-53.0) % RDW (11.5-15.5) % Plt Count (150-450) k/uL Chloride (98-107) mmol/L Creatinine (0.66-1.25) mg/dL POC Glucose (mg/dL) 112 H 110 H (75-99) mg/dL Microbiology - Last 24 Hours (Table) 09/16/19 15:00 Blood Culture - Preliminary Blood No Growth after 96 hours Assessment and Plan Plan: MRSA and pseudomonas pneumonia with sepsis on admission and Acute hypoxic respiratory failure - ID recs: vanco for 10 more days, total 2 weeks of treatment, d/c cefepime, already has PICC line - growing Shanna glabrata in the sputum, anidulafungin added - follow CXR today was more vascular congestion, will give lasix 40 mg IV 1 now and start 20 mg IV twice a day. - Pulm hygeine ESBL e coli and proteus UTI - finished Cefepime course - repeat culture negative and appears infection cleared - ID recs - Change aggarwal once monthly - aggarwal care MRSA bacteremia - continue with vanco for 10 more days, total 2 weeks of treatment - repeat cultures negative Anemia, likely dilutaion - Feritin low normal, IV FE X 3 doses received. - follow CBC Severe multiple sclerosis with functional quadriplegia, inability to speak, impair swallowed with chronic aspiration - supportive care - frequent turns - continue tube feedings Chronic dysphagia with PEG tube - continue tube feedings, suggest continuous feedings at discharge - hear of bed >30 degrees. Multiple hospital admissions for resistant urinary tract infection diarrhea, resolved Poor overall prognosis DVT prophylaxis: Heparin Discussed with: Patient, nursing, ID and pulm services Anticipated discharge: 2-[address]: return to [facility] vs LTACH A total of 25 minutes was spent on the care of this complex patient more than 50% of the time was spent in counseling and care coordination.
[2019-09-21 14:34] VITALS: BMI 23.8
--- NOTE | 2019-09-21 17:11 | PN ---
PROGRESS NOTE DATE OF SERVICE: 09/21/2019. REASON FOR FOLLOWUP: 1. MRSA bacteremia and pneumonia. 2. Oropharyngeal candidiasis. INTERVAL HISTORY: The patient is currently afebrile. The patient is breathing comfortably, hemodynamically stable. No nausea, vomiting or diarrhea per the RN. Patient unable to provide any history. PHYSICAL EXAMINATION: Blood pressure 130/72 with a pulse of 85. Temperature 97.9. He is 94% 2 L nasal cannula. General description is a middle-aged male lying in bed in no distress. Respiratory system: Unlabored breathing. Decreased breath sounds in the bases. No wheeze. Heart S1, S2. Regular rate and rhythm. No tenderness. Extremities: No edema of the feet. LABS: White count normalized to 7.6 from yesterday of 14.6, BUN of 16, creatinine 0.60. DIAGNOSTIC IMPRESSION AND PLAN: 1. Patient with MRSA bacteremia secondary to pneumonia. Follow up blood cultures have been negative. Currently did have a PICC line to continue vancomycin, pharmacy to dose for another 10 days. 2. The patient with elevated white count, possible oropharyngeal candidiasis. Sputum with Shanna glabrata, currently on Eraxis to continue for about 10 days to finish a course of therapy. 3. Continue supportive care. MMODL / IJN: [id number] /
[2019-09-21 17:22] LABS: Glucose,Whole Blood 112 mg/dL (75-99)
[2019-09-21] MEDS: FUROSEMIDE 10 MG/ML 2 ML VIAL IV SCH (21:19)
[2019-09-21] MEDS: ANIDULAFUNGIN 100 MG in SODIUM CHLORIDE 0.9% 100 ML IVPB SCH (21:19)
[2019-09-22 00:43] LABS: Glucose,Whole Blood 95 mg/dL (75-99)
[2019-09-22 06:37] LABS: Glucose,Whole Blood 120 mg/dL (75-99)
[2019-09-22 08:15] LABS: Anisocytosis Moderate; Basophils # (A) 0.1 k/uL (0-0.2); Basophils % (A) 2 %; Eosinophils # (A) 0.5 k/uL (0-0.7); Eosinophils % (A) 7 %; HCT 31.1 % (39.0-53.0); HGB 9.6 gm/dL (13.0-17.5); Hypochromasia Marked; Lymphocytes # (A) 1.1 k/uL (1.0-4.8); Lymphocytes % (A) 17 %; MCH 26.5 pg (25.0-35.0); MCHC 30.9 g/dL (31.0-37.0); MCV 85.7 fL (80.0-100.0); Mean Platelet Volume 7.8; Monocytes # (A) 0.5 k/uL (0-1.0); Monocytes % (A) 8 %; Neutrophils # (A) 4.2 k/uL (1.3-7.7); Neutrophils % (A) 64 %; Platelet Count 664 k/uL (150-450); RBC 3.63 m/uL (4.30-5.90); RDW 21.7 % (11.5-15.5); WBC 6.5 k/uL (3.8-10.6)
[2019-09-22 08:25] LABS: African American GFR (CKD) >90 (>60 ml/min/1.73 sqM); Anion Gap 8 mmol/L; Blood Urea Nitrogen 23 mg/dL (9-20); Calcium 8.9 mg/dL (8.4-10.2); Carbon Dioxide 25 mmol/L (22-30); Chloride 107 mmol/L (98-107); Glucose 103 mg/dL (74-99); Non-African American GFR(CKD) >90 (>60 ml/min/1.73 sqM); Potassium 4.4 mmol/L (3.5-5.1); Sodium 140 mmol/L (137-145)
[2019-09-22] MEDS: HEPARIN SODIUM,PORCINE 5,000 UNIT/ML 1 ML VIAL SQ SCH ×2 (09:12→20:54)
[2019-09-22] MEDS: VANCOMYCIN 1,000 MG in SODIUM CHLORIDE 0.9% 250 ML IVPB SCH ×2 (09:12→20:54)
[2019-09-22] MEDS: BACLOFEN 10 MG TAB PEG/G-TUBE SCH ×3 (09:12→20:55)
[2019-09-22] MEDS: guaiFENesin SYRUP 100MG/5ML 200 MG/10 ML CUP PEG/G-TUBE PRN (09:13)
[2019-09-22] MEDS: CHOLECALCIFEROL 1,000 UNIT TAB PEG/G-TUBE SCH (09:13)
[2019-09-22] MEDS: ASCORBIC ACID 500 MG TAB PEG/G-TUBE SCH (09:13)
[2019-09-22] MEDS: AMANTADINE HCL 100 MG/10 ML CUP PO SCH ×2 (09:13→20:54)
[2019-09-22] MEDS: FUROSEMIDE 10 MG/ML 2 ML VIAL IV SCH ×2 (09:14→20:54)
[2019-09-22] MEDS: PANTOPRAZOLE SODIUM 40 MG GRANULE PKT PEG/G-TUBE SCH (09:14)
[2019-09-22] MEDS: IPRATROPIUM-ALBUTEROL 3 ML NEB INHALATION SCH ×4 (09:19→21:15)
[2019-09-22] MEDS: SODIUM CHLORIDE 0.9% 1,000 ML IV SCH (11:22)
--- NOTE | 2019-09-22 11:27 | P.PN ---
Subjective Progress Note Date: 09/22/19 Principal diagnosis: Aspiration pneumonia This is 59-year-old white male patient of resident of a local retirement, with the history of severe MS, poor baseline functioning status, chronic contractures of lower extremities, nonambulatory, patient is essentially bedridden and n onverbal. We have seen patient in consultation during his previous admissions for complications related to sepsis secondary to recurrent urinary tract infections related to Pseudomonas, gram-negative bacteremia, ESBL producing E. coli in the urine. Most recently in July 2019 she was hospitalized for gram- negative sepsis with urine cultures positive for ESBL producing E. coli. Patient was treated, and improved, discharged back to the retirement on 08/2019, yesterday on 09/08/2019 patient presents to the hospital per EMS evaluation of hypoxemia, less of breath, and audible congestion, he was placed on the 100% nonrebreather, pulse ox is 95%, she was febrile on admission, with a temp of 103.0F. Chest x-ray was taken showing mild right-sided perihilar infiltrate, and mild left lower lobe pneumonia that appears to be new since his last admission and his last chest x-ray on 07/31/2019. Admission lab work showed a white blood cell count of 9.4, hemoglobin of 13.8, sodium of 133, p otassium is 5.0, chloride is 101, CO2 is 21, B1 is 21 creatinine 0.71, troponin was negative 1 is 0.016, urinalysis was positive for moderate amount of blood, large amount of leuks, white blood cells in clumps, rare bacteria, culture is pending, influenza screen was negative. Patient was started on a combination of Zosyn and vancomycin, breathing treatments, he remains nothing by mouth, he is being fed via the PEG tube. He seen this morning in the intensive care unit, remains on a percent nonrebreather mask, his cough is very weak, he is not able to clear secretions, and he is audibly congested. Given a dose of IV Lasix this morning for chest congestion, diuresed, however not sounding significantly better. On 09/10/2017 patient seen in follow-up in the intensive care unit, he is awake, appears less dyspneic on today's exam, FiO2 is down to 12 L per high flow nasal cannula, oxygen 98%, hemodynamically stable, tachypneic shallow breaths, but no acute distress, low-grade fevers, sinus tachycardia on the monitor. Still congested, although sounding better on today's exam, remains on antibiotics, she was switched from Zosyn to Invanz, continues on vancomycin, urine culture is positive for gram-negative bacilli, final cultures pending, blood cultures are positive for staph aureus. Today's labs have been reviewed including cell count 8.5, hemoglobin of 10.2, platelet count is 325, sodium is 139, potassium 3.4, chloride is 112, CO2 is 18, BUN 17 creatinine 0.84. Registered dietitian has been consulted for evaluation of nutritional needs, and we anticipate starting tube feedings today, the continuous feeding on the feeding pump. His chest x- ray showed worsening new moderate interstitial pulmonary edema and the more confluent right-sided opacities. On 09/11/2019 patient seen in follow-up in the intensive care unit, patient is alert, he is nonverbal, she follows simple command, his cough is very weak, and patient is still audibly congested, and not able to bring up any phlegm, remains on high flow oxygen, currently at 12 L with a pulse ox of 97%, slightly tachycar dic and the heart rate is ranging from 105-112 BPM, he is afebrile, hemodynamically patient is stable, tube feedings have been resumed, and she is on continuous tube feedings via feeding pump, with a viral AF at a rate is 65 ML per hour, with standard water flushes. Patient remains on antibiotics with Invanz and vancomycin, urine culture revealed 2 different gram-negative organisms with Proteus mirabilis and ESBL E. coli, both susceptible to ertapenem. Blood culture from 09/08/2019 was positive for Staphylococcus aureus, although blood cultures have been done, and so far are negative, his labs have been reviewed, showing white blood cell count of 13.5, hemoglobin of 10.8, sodium is 144, potassium is 3.3, chloride is 112, CO2 is 21, BUN is 15, creatinine 0.67. Patient has been having intermittent low-grade fevers, last one last night at 2000, with a temp of 99.8F, afebrile this morning. On 09/12/2019 patient seen in follow-up in the intensive care unit, he is on 10 L of oxygen, his pulse ox of 98%, a low-grade fever this morning, tachycardic in sinus mechanism with a rate of 112 BPM, patient was noted to be more short of breath, remains congested, his cough is weak, patient is unable to clear secretions, blood gas was then obtained on 11 L high flow oxygen, and review pO2 of 81, pCO2 of 35 and pH of 7.48. Patient remains on Invanz and vancomycin for evidence of ESBL E. coli, Proteus mirabilis in the urine culture, patient also had MRSA bacteremia, morning his follow-up blood culture from 09/10/2019 also shows presumptive MRSA, final culture is pending. Patient is on tube feedings, is having loose stools, stool for C. diff was sent and the results are pending at this time. Remains strict nothing by mouth. No new chest x-ray today, yesterday's chest x-ray showed scattered air space infiltrates bilaterally, without significant change from prior chest x-rays. On 09/19/2019 patient seen in follow-up in the intensive care unit, he was successfully extubated yesterday, he is done fairly well since extubation, currently is on room air, with a pulse ox of 92-93%, afebrile, hemodynamically stable, off is weak, and patient still has trouble generating sufficient cough to clear secretions. Does not appear to be any acute distress, lung sounds reveal diffuse rhonchi, he remains nothing by mouth, he is being fed through his PEG tube, remains on breathing treatments, and antibiotics with cefepime and vancomycin. BAL cultures were positive for MRSA, fungal cultures are positive for Shanna. Patient also had MRSA bacteremia and ESBL E. coli and Proteus mirabilis in the urine. Follow blood culture so far has shown no growth, ID service is following. Afebrile, hemodynamically stable, is awake, he is following simple command, in no acute distress On 09/22/2019 patient seen in follow-up on medical surgical floor. He is awake, alert, he is attempting to sit couple words in response to questions, does not appear to be in any acute distress, lung sounds are diminished, with minimal rhonchi, sounds less congested, weak cough remains, ration is unable to clear any secretions, afebrile, hemodynamically stable, is a 2 L of oxygen with a pulse ox of 93%. Patient has received a course of cefepime, he is currently on vancomycin, and Eraxis, for evidence of Shanna fungal bronc wash. He is tolerating tube feedings, have been in no acute events overnight, patient is also receiving IV diuretics, at 20 mg every 12 hours, and a chest x-ray was done, we unable to look at it right now, awaiting report. Objective - Vital Signs Vital signs: Vital Signs Temp 98.5 F 09/22/19 05:00 Pulse 100 09/22/19 09:35 Resp 24 09/22/19 09:19 BP 139/57 09/22/19 05:00 Pulse Ox 93 L 09/22/19 09:19 Intake & Output 09/21/19 09/22/19 09/22/19 18:59 06:59 18:59 Intake Total 790 1255 95 Output Total 1000 1700 Balance -210 -445 95 Weight 73.4 kg Intake: IV 250 375 Vancomycin 1,000 mg In 250 375 Sodium Chloride 0.9% 250 ml @ 125 mls/hr IVPB Q12HR [facility] Rx#:[id number] Intake, IV Titration 100 Amount Anidulafungin 100 mg In 100 Sodium Chloride 0.9% 100 ml @ 84 mls/hr IVPB HS [facility] Rx#:[id number] Tube Feeding 540 780 95 Output: Urine 1000 1700 Other: Voiding Method Indwelling Catheter Indwelling Catheter Indwelling Catheter # Bowel Movements 0 ABP, PAP, CO, CI - Last Documented Arterial Blood Pressure 95/80 - Exam GENERAL EXAM: Alert, nonverbal, 59-year-old white male, cachectic currently on 2l/min room air with a pulse ox of 93%, patient has a very weak cough HEAD: Normocephalic/atraumatic. EYES: Normal reaction of pupils, equal size. Conjunctiva pink, sclera white. NOSE: Clear with pink turbinates. THROAT: No erythema or exudates. NECK: No masses, no JVD, no thyroid enlargement, no adenopathy. CHEST: No chest wall deformity. Symmetrical expansion. LUNGS: Equal air entry with minimal rhonchi CVS: Regular rate and rhythm, normal S1 and S2, no gallops, no murmurs, no rubs ABDOMEN: Soft, nontender. No hepatosplenomegaly, normal bowel sounds, no guarding or rigidity. PEG tube present in the left upper abdomen, feedings are on hold right now EXTREMITIES: No clubbing, no edema, no cyanosis, 2+ pulses and upper and lower extremities. Chronic contractures involving upper and lower extremities, muscle weakness and overall rigidity MUSCULOSKELETAL: Chronic contractures, muscle wasting SPINE: No scoliosis or deformity SKIN: No rashes CENTRAL NERVOUS SYSTEM: Alert, unable to assess orientation, patient is nonverbal, he is able to nod his head yes to simple questions - Labs CBC & Chem 7: 09/22/19 07:32 09/22/19 07:32 Labs: Abnormal Lab Results - Last 24 Hours (Table) 09/21/19 09/22/19 09/22/19 Range/Units 17:20 06:34 07:32 RBC 3.63 L (4.30-5.90) m/uL Hgb 9.6 L (13.0-17.5) gm/dL Hct 31.1 L (39.0-53.0) % MCHC 30.9 L (31.0-37.0) g/dL RDW 21.7 H (11.5-15.5) % Plt Count 664 H (150-450) k/uL BUN (9-20) mg/dL Glucose (74-99) mg/dL POC Glucose (mg/dL) 112 H 120 H (75-99) mg/dL 09/22/19 Range/Units 07:32 RBC (4.30-5.90) m/uL Hgb (13.0-17.5) gm/dL Hct (39.0-53.0) % MCHC (31.0-37.0) g/dL RDW (11.5-15.5) % Plt Count (150-450) k/uL BUN 23 H (9-20) mg/dL Glucose 103 H (74-99) mg/dL POC Glucose (mg/dL) (75-99) mg/dL Microbiology - Last 24 Hours (Table) 09/16/19 15:00 Blood Culture - Preliminary Blood No Growth after 120 hours Assessment and Plan Plan: Assessment: #1. Acute hypoxemic respiratory failure requiring intubation and mechanical ventilation on 09/13/2019 through 09/18/2019. Patient has bilateral pneumonia and bronchial wash cultures showed MRSA and pseudomonas aeruginosa, and fungal cultures positive for Shanna glabrata #2. MRSA bacteremia #3. Suspect chronic aspiration, despite nothing by mouth status the patient is being fed by a PEG tube #4. Urinary tract infection related to ESBL E. coli and Proteus mirabilis #5. Severe multiple sclerosis with cognitive impairment, speech impairment, muscle atrophy, rigidity, chronic contractures, urinary and bowel incontinence gait impairment #6. History of recurrent urinary tract infections including with ESBL organisms and pseudomonal infections #7. Recent hospitalization in July for urinary tract infection with sepsis and urine culture was positive for ESBL E. coli #8. Chronic dysphagia, patient has a PEG tube #9. Multiple hospitalizations related to history of negative bacteremia, recurrent urinary tract infections #10. Poor baseline functioning status, patient is bedridden, and he resides in a retirement #11. Diarrhea, improved #12. Anemia secondary to acute critical illness in addition to dilution, and phlebotomy. Patient has been given IV iron supplementation Plan: Continue IV diuretics, continue antibiotics per ID service recommendations, current coverage includes Eraxis and vancomycin, patient has been afebrile, was dynamically stable, still has a weak nonproductive cough, maintain aspiration precautions, continue nebulized bronchodilators, head of the bed up 30 at all times. Tolerating tube feedings, we'll continue to follow. I performed a history & physical examination of the patient and discussed their management with my nurse practitioner, Nhaeed Pace. I reviewed the nurse practitioner's note and agree with the documented findings and plan of care. Lung sounds are positive for diffuse rhonchi throughout the lung prater. The findings and the impression was discussed with the patient. I attest to the documentation by the nurse practitioner. Time with Patient: Less than 30
[2019-09-22 11:50] LABS: Glucose,Whole Blood 97 mg/dL (75-99)
--- NOTE | 2019-09-22 12:00 | XR ---
EXAMINATION TYPE: XR chest 1V portable DATE OF EXAM: 09/22/2019 Comparison: 09/21/2019 Clinical History: 59-year-old male shortness of breath, pneumonia Findings: Leftward patient rotation ultrasonography mediastinal contours. Right PICC tip at the mid SVC level. Heart upper limits of normal in size. Old healed left-sided rib fracture 4 days. Continued diffuse in terstitial densities. Bandlike atelectasis right base. No sizable effusion. Impression: 1. Right PICC tip at the mid SVC level. 2. Continued interstitial infiltrates.
[2019-09-22] MEDS: SODIUM CHLORIDE 0.9% 500 ML IV SCH (14:06)
--- NOTE | 2019-09-22 16:45 | P.PN ---
Subjective Progress Note Date: 09/22/19 patient seen and examined at bedside,the patient is awake and alert, attempts to communicate but largely minimally verbal. Patient has a weak cough unable to clear secretions. Currently on vancomycin and Eraxis. Tolerating tube feeds well no acute events overnight. Objective - Vital Signs Vital signs: Vital Signs Temp 98.9 F 09/22/19 12:26 Pulse 92 09/22/19 12:26 Resp 16 09/22/19 16:00 BP 129/79 09/22/19 12:26 Pulse Ox 93 L 09/22/19 09:19 Intake & Output 09/21/19 09/22/19 09/22/19 18:59 06:59 18:59 Intake Total 790 1255 1285 Output Total 1000 1700 Balance -210 -445 1285 Weight 73.4 kg Intake: IV 250 375 310 Sodium Chloride 0.9% 1, 60 000 ml @ 10 mls/hr IV . Q24H [facility] Rx#:[id number] Vancomycin 1,000 mg In 250 375 250 Sodium Chloride 0.9% 250 ml @ 125 mls/hr IVPB Q12HR [facility] Rx#:[id number] Intake, IV Titration 100 Amount Anidulafungin 100 mg In 100 Sodium Chloride 0.9% 100 ml @ 84 mls/hr IVPB HS [facility] Rx#:[id number] Tube Feeding 540 780 915 Other 60 Output: Urine 1000 1700 Other: Voiding Method Indwelling Catheter Indwelling Catheter Indwelling Catheter # Bowel Movements 0 ABP, PAP, CO, CI - Last Documented Arterial Blood Pressure 95/80 - Exam GENERAL EXAM: Alert, nonverbal, cachectic currently on the room air with a pulse ox of 93%, HEAD: Normocephalic/atraumatic. EYES: Normal reaction of pupils, equal size. Conjunctiva pink, sclera white. NOSE: Clear with pink turbinates. THROAT: No erythema or exudates. NECK: No masses, no JVD, no thyroid enlargement, no adenopathy. CHEST: No chest wall deformity. Symmetrical expansion. LUNGS: Equal air entry with diffuse rhonchi throughout CVS: Regular rate and rhythm, normal S1 and S2, no gallops, no murmurs, no rubs ABDOMEN: Soft, nontender. No hepatosplenomegaly, normal bowel sounds, no guarding or rigidity. PEG tube present in the left upper abdomen, feedings are on hold right now EXTREMITIES: No clubbing, no edema, no cyanosis, 2+ pulses and upper and lower e xtremities. Chronic contractures involving upper and lower extremities, muscle weakness and overall rigidity MUSCULOSKELETAL: Chronic contractures, muscle wasting SPINE: No scoliosis or deformity SKIN: No rashes CENTRAL NERVOUS SYSTEM: Alert, unable to assess orientation, patient is nonverbal, he is able to nod his head yes to simple questions - Labs CBC & Chem 7: 09/22/19 07:32 09/22/19 07:32 Labs: Abnormal Lab Results - Last 24 Hours (Table) 09/21/19 09/22/19 09/22/19 Range/Units 17:20 06:34 07:32 RBC 3.63 L (4.30-5.90) m/uL Hgb 9.6 L (13.0-17.5) gm/dL Hct 31.1 L (39.0-53.0) % MCHC 30.9 L (31.0-37.0) g/dL RDW 21.7 H (11.5-15.5) % Plt Count 664 H (150-450) k/uL BUN (9-20) mg/dL Glucose (74-99) mg/dL POC Glucose (mg/dL) 112 H 120 H (75-99) mg/dL 09/22/19 Range/Units 07:32 RBC (4.30-5.90) m/uL Hgb (13.0-17.5) gm/dL Hct (39.0-53.0) % MCHC (31.0-37.0) g/dL RDW (11.5-15.5) % Plt Count (150-450) k/uL BUN 23 H (9-20) mg/dL Glucose 103 H (74-99) mg/dL POC Glucose (mg/dL) (75-99) mg/dL Microbiology - Last 24 Hours (Table) 09/16/19 15:00 Blood Culture - Preliminary Blood No Growth after 120 hours Assessment and Plan Plan: MRSA and pseudomonas pneumonia with sepsis on admission and Acute hypoxic respiratory failure - ID recs: vanco for 10 more days, total 2 weeks of treatment, d/c cefepime, already has PICC line - growing Shanna glabrata in the sputum, anidulafungin added - follow CXR today was more vascular congestion, will give lasix 40 mg IV 1 now and start 20 mg IV twice a day. - Pulm hygeine ESBL e coli and proteus UTI - finished Cefepime course - repeat culture negative and appears infection cleared - ID recs - Change aggarwal once monthly - aggarwal care MRSA bacteremia - continue with vanco for 10 more days, total 2 weeks of treatment - repeat cultures negative Anemia, likely dilutaion - Feritin low normal, IV FE X 3 doses received. - follow CBC Severe multiple sclerosis with functional quadriplegia, inability to speak, impair swallowed with chronic aspiration - supportive care - frequent turns - continue tube feedings Chronic dysphagia with PEG tube - continue tube feedings, suggest continuous feedings at discharge - hear of bed >30 degrees. Multiple hospital admissions for resistant urinary tract infection diarrhea, resolved Poor overall prognosis DVT prophylaxis: Heparin Discussed with: Patient, nursing, ID and pulm services Anticipated discharge: 2-[address]: return to [facility] vs [facility]ACH A total of 25 minutes was spent on the care of this complex patient more than 50% of the time was spent in counseling and care coordination.
--- NOTE | 2019-09-22 17:37 | PN ---
PROGRESS NOTE DATE OF SERVICE: 09/22/2019 REASON FOR FOLLOWUP: 1. MRSA bacteremia pneumonia. 2. Oropharyngeal candidiasis. INTERVAL HISTORY: The patient is currently afebrile. The patient is hemodynamically stable. He is breathing comfortably. No distress has been noted. No nausea, vomiting or diarrhea reported by the nursing staff. PHYSICAL EXAMINATION: Blood pressure 129/79 with pulse of 92, temperature 98.9. He is 98% on room air. General description is a middle-aged male lying in bed in no distress. RESPIRATORY SYSTEM: Unlabored breathing. Clear to auscultation anteriorly. HEART: S1, S2. Regular rate and rhythm. ABDOMEN: Soft. No tenderness. LABS: Hemoglobin is 9.6, white count 6.5, BUN of 23, creatinine 0.71. DIAGNOSTIC IMPRESSION AND PLAN: 1. Patient with methicillin-resistant Staphylococcus aeruginosa bacteremia. Source is pneumonia in this patient who has shown overall clinical improvement. Follow-up blood culture has been negative. Patient is currently on vancomycin; to continue for another 10-12 days to finish a course of therapy. 2. Patient with oropharyngeal candidiasis with sputum showing Shanna glabrata. Patient on Eraxis; to continue for another 8-10 days to finish course of therapy. Continue with supportive care. MMODL / IJN: [id number] /
[2019-09-22 17:53] LABS: Glucose,Whole Blood 108 mg/dL (75-99)
[2019-09-22] MEDS: ANIDULAFUNGIN 100 MG in SODIUM CHLORIDE 0.9% 100 ML IVPB SCH (20:54)
[2019-09-23 01:44] LABS: Glucose,Whole Blood 112 mg/dL (75-99)
[2019-09-23 04:27] VITALS: TEMP 98.4
[2019-09-23 06:01] LABS: Glucose,Whole Blood 108 mg/dL (75-99)
[2019-09-23] MEDS: IPRATROPIUM-ALBUTEROL 3 ML NEB INHALATION SCH ×3 (09:03→16:30)
[2019-09-23] MEDS: VANCOMYCIN 1,000 MG in SODIUM CHLORIDE 0.9% 250 ML IVPB SCH (09:06)
[2019-09-23] MEDS: BACLOFEN 10 MG TAB PEG/G-TUBE SCH ×2 (10:48→15:56)
[2019-09-23] MEDS: guaiFENesin SYRUP 100MG/5ML 200 MG/10 ML CUP PEG/G-TUBE PRN (10:48)
[2019-09-23] MEDS: CHOLECALCIFEROL 1,000 UNIT TAB PEG/G-TUBE SCH (10:49)
[2019-09-23] MEDS: ASCORBIC ACID 500 MG TAB PEG/G-TUBE SCH (10:49)
[2019-09-23] MEDS: FUROSEMIDE 10 MG/ML 2 ML VIAL IV SCH (10:50)
[2019-09-23] MEDS: AMANTADINE HCL 100 MG/10 ML CUP PO SCH (10:50)
[2019-09-23] MEDS: PANTOPRAZOLE SODIUM 40 MG GRANULE PKT PEG/G-TUBE SCH (10:50)
[2019-09-23] MEDS: SODIUM CHLORIDE 0.9% 500 ML IV SCH (10:51)
[2019-09-23] MEDS: HEPARIN SODIUM,PORCINE 5,000 UNIT/ML 1 ML VIAL SQ SCH (10:51)
[2019-09-23 11:42] LABS: Glucose,Whole Blood 106 mg/dL (75-99)
--- NOTE | 2019-09-23 12:27 | P.PN ---
Subjective Progress Note Date: 09/23/19 Principal diagnosis: Aacute hypoxemic respiratory failure secondary to acute pneumonia suspect aspiration. The patient is seen today 09/23/2019 in follow-up on the regular medical floor. He is currently resting comfortably in bed. He shakes his head no when asked if he is having any shortness of breath. No cough oringestion. He has been treated for MRSA and Pseudomonas in the sputum. MRSA in the blood. Proteus and E. coli in the urine. He is currently on vancomycin. Remains on Anidulafungin. Remains on bronchodilators. On IV Lasix. Currently in a negative balance. X-ray reveals stable bilateral infiltrates. Objective - Vital Signs Vital signs: Vital Signs Temp 98.4 F 09/23/19 04:26 Pulse 96 09/23/19 09:24 Resp 20 09/23/19 04:26 BP 119/69 09/23/19 04:26 Pulse Ox 95 09/23/19 09:06 Intake & Output 09/22/19 09/23/19 09/23/19 18:59 06:59 18:59 Intake Total 1285 1235 Output Total 1999 Balance 1285 -765 Intake: IV 310 355 Sodium Chloride 0.9% 1, 60 105 000 ml @ 10 mls/hr IV . Q24H [facility] Rx#:[id number] Vancomycin 1,000 mg In 250 250 Sodium Chloride 0.9% 250 ml @ 125 mls/hr IVPB Q12HR [facility] Rx#:[id number] Intake, IV Titration 100 Amount Anidulafungin 100 mg In 100 Sodium Chloride 0.9% 100 ml @ 84 mls/hr IVPB [facility] Rx#:[id number] Tube Feeding 915 780 Other 60 Output: Urine 1999 Uretheral (Stein) 1999 Other: Voiding Method Indwelling Catheter Indwelling Catheter ABP, PAP, CO, CI - Last Documented Arterial Blood Pressure 95/80 - Exam GENERAL EXAM: Frail cachectic 59-year-old male patient, on 2 L nasal cannula HEAD: Normocephalic/atraumatic. EYES: Normal reaction of pupils, equal size. Conjunctiva pink, sclera white. NOSE: Clear with pink turbinates. THROAT: No erythema or exudates. NECK: No masses, no JVD, no thyroid enlargement, no adenopathy. CHEST: No chest wall deformity. Symmetrical expansion. LUNGS: Equal air entry with basilar crackles CVS: Regular rate and rhythm, normal S1 and S2, no gallops, no murmurs, no rubs ABDOMEN: Soft, nontender. No hepatosplenomegaly, normal bowel sounds, no guarding or rigidity. PEG tube present in the left upper abdomen, exit site clean and dry EXTREMITIES: No clubbing, no edema, no cyanosis, 2+ pulses and upper and lower extremities. Chronic contractures involving upper and lower extremities MUSCULOSKELETAL: Chronic contractures, muscle wasting SPINE: chronic contractures, muscle wasting SKIN: No rashes CENTRAL NERVOUS SYSTEM: alert, unable to assess orientation, patient is nonverbal, nodding head yes and no appropriately. - Labs CBC & Chem 7: 09/22/19 07:32 09/22/19 07:32 Labs: Abnormal Lab Results - Last 24 Hours (Table) 09/22/19 09/23/19 09/23/19 Range/Units 17:52 01:43 06:01 POC Glucose (mg/dL) 108 H 112 H 108 H (75-99) mg/dL 09/23/19 Range/Units 11:39 POC Glucose (mg/dL) 106 H (75-99) mg/dL Microbiology - Last 24 Hours (Table) 09/16/19 15:00 Blood Culture - Final Blood No Growth after 144 hours Assessment and Plan Assessment: #1. Acute hypoxemic respiratory failure requiring intubation and mechanical ventilation on 09/13/2019 related to acute pneumonia likely related to aspiration. status post bronchoscopy with BAL. Positive for pseudomonas aeruginosa, MRSA. Extubated and maintaining oxygen saturations in the 90s on 2 L/m per nasal cannula. #2. MRSA bacteremia #3. Suspect chronic aspiration, despite nothing by mouth status the patient is being fed by a PEG tube #4. Urinary tract infection related to ESBL E. coli and Proteus mirabilis #5. Severe multiple sclerosis with cognitive impairment, speech impairment, m uscle atrophy, rigidity, chronic contractures, urinary and bowel incontinence gait impairment #6. History of recurrent urinary tract infections including with ESBL organisms and pseudomonal infections #7. Recent hospitalization in July for urinary tract infection with sepsis and urine culture was positive for ESBL E. coli #8. Chronic dysphagia, patient has a PEG tube #9. Multiple hospitalizations related to history of negative bacteremia, recurrent urinary tract infections #10. Poor baseline functioning status, patient is bedridden, and [facility] Plan: The patient was seen and evaluated by Dr. Kumar. Chest x-ray from yesterday reviewed. On 2 L nasal cannula now. We'll continue with his current treatment plan. The plan is to discharge back to [facility] once stable medically. I, the cosigning physician, performed a history & physical examination of the patient. Lungs soundscrackles in the posterior bases. Maintaining good O2 saturations in the 90s on 2 L/m per nasal cannula. I discussed the assessment and plan of care with my nurse practitioner, Angela Hendrix. I attest to the above note as dictated by her.
[2019-09-23 12:40] VITALS: BP 138/84; RESP 19
--- NOTE | 2019-09-23 14:05 | PN ---
PROGRESS NOTE DATE OF SERVICE: 09/23/2019 REASON FOR FOLLOWUP: 1. MRSA bacteremia pneumonia. 2. Oropharyngeal candidiasis. INTERVAL HISTORY: The patient is currently afebrile. Patient is breathing comfortably. Patient is hemodynamically stable. Remains to be . No nausea, vomiting or any diarrhea reported. PHYSICAL EXAMINATION: Blood pressure 138/84, pulse of 91, temperature 98.4. He is 96% on 2 L nasal cannula. General description is a middle-aged male lying in bed in no distress. RESPIRATORY SYSTEM: Unlabored breathing, clear to auscultation anteriorly. HEART: S1, S2. Regular rate and rhythm. ABDOMEN: Soft, no tenderness. LABS: No new labs have been obtained. White count was normal as of yesterday. DIAGNOSTIC IMPRESSION AND PLAN: 1. Patient with methicillin-resistant Staphylococcus aureus pneumonia with secondary bacteremia. The patient to continue with IV vancomycin pharmacy to dose for another 10 days to finish a course of therapy. 2. Patient with oropharyngeal candidiasis with bronch positive for Shanna glabrata. Continue Eraxis 100 mg daily for about 10 days. MMODL / IJN: [id number] /
--- NOTE | 2019-09-23 14:27 | P.DS ---
Providers Date of admission: 09/08/19 16:46 Expected date of discharge: 09/23/19 Attending physician: Bernabe Newberry MD Consults: 09/08/19 17:16 Consult Physician Routine Consulting Provider: Nathan Yanez Consult Reason/Comments: Hypoxia and possible aspiration Do you want consulting provider notified?: Yes 09/09/19 09:22 Consult Physician Routine Consulting Provider: Sonal Farha Consult Reason/Comments: pneumonia, uti Do you want consulting provider notified?: Yes 09/09/19 17:39 Consult Physician Routine Consulting Provider: Bernabe Newberry Consult Reason/Comments: Family request new Hospitalist group Do you want consulting provider notified?: Already Contacted Primary care physician: Matteo Hernandez Hospital Course: Discharge diagnosis acute respiratory failure with hypoxemia MRSA/pseudomonal pneumonia MRSA bacteremia Shanna pneumonia ESBL Proteus UTI iron deficiency anemia Functional quadriplegia Severe multiple sclerosis Chronic aspiration Chronic dysphagia with PEG tube Hospital course Patient is a 59-year-old male with a known history of multiple sclerosis who is a chronic custodial resident with contractures, bedbound, and had a PEG tube in place, GERD, hypertension, and prior DVT was taken to the hospital secondary to low oxygenation and a high-grade fever. On arrival to the emergency department his pulse was 139, respiratory rate 31, and O2 sat 95% on a nonrebreather. Initial temperature was 103 rectally. Initial laboratory analysis did not demonstrate any elevated white blood cell count, he was found have a low sodium at 133 and a slightly elevated alk phos at 158. Influenza nasal swab was negative. Chest x-ray showed a right sided perihilar infiltrate and mild left lower lobe pneumonia. He was diagnosed with pneumonia with sepsis. He was started on broad-spectrum antibiotics and admitted. Patient was noted to have a chronic indwelling Stein catheter. Pulmonary was consulted, and noted that patient had a very weak cough and was not able to clear secretions. Infectious disease was consulted who agreed with initial choice of vancomycin by transition Christa to Invanz secondary to patient's history of ESBL E. coli. Pulmonary did discuss CODE STATUS with the patient's legal guardian his sister on admission and she was adamant that he remain full code. Blood cultures came back positive for MRSA. His chest x-rays continued to worsen. Today cultures have shown MRSA bacteremia, MDRO ESBL E. coli and Proteus in the urine which appears more consistent with chronic colonization, and MRSA PNA. 09/12 noted to have loose stools and C. diff was sent but was negative. Pulmonary again confirmed full CODE STATUS with family and patient had worsening respiratory status was subsequently intubated, had and arterial line, had central line placed, and underwent BAL on 09/13 which showed MRSA and pseudomonas aeruginosa and fungal cultures were positive for Shanna glabrata, the patient's antibiotic regimen was de-escalated to include vancomycin and Eraxis/ Plan since intubation was that patient will need long-term trach and will need LTACH placement on discharge. Plan was for trach on 09/17. However sister came in on 09/15 and does not want trach. Failed weaning trail on 09/16, was able to CPAP for 10 hours on 09/17 and was able to eventually wean the patient down to 2 L via nasal cannula with him maintaining acceptable oxygen saturations. focused exam Respiratory: Diminished in the bases equal entry with minimal rhonchi Neuro: Awake alert, unable to assess orientation patient largely minimally verbal, does nod head to simple questions. Patient Condition at Discharge: Fair Plan - Discharge Summary New Discharge Prescriptions: New Vancomycin 1,000 mg IVPB Q12HR #20 vial Continue Cholecalciferol [Vitamin D3 (25 Mcg = 1000 Iu)] 1,000 unit PEG/G-TUBE DAILY Docusate Oral Soln [Colace Oral Soln] 200 mg PEG/G-TUBE BID Amantadine 50mg/5ml 100 mg PEG/G-TUBE Q12H Ascorbic Acid [Vitamin C] 250 mg PEG/G-TUBE DAILY guaiFENesin [guaiFENesin Oral Solution] 200 mg PEG/G-TUBE Q6H PRN PRN Reason: Cough Scopolamine 1.5MG/72Hr Patch [TransDerm Scop] 1 patch TRANSDERM Q72H Baclofen 5 mg PEG/G-TUBE TID Furosemide [Lasix] 20 mg PEG/G-TUBE DAILY Acetaminophen Oral Susp [Tylenol] 320 mg PEG/G-TUBE Q6H PRN PRN Reason: Fever And/ Or Pain Omeprazole Magnesium [PriLOSEC Oral Susp] 20 mg PEG/G-TUBE DAILY carBAMazepine [carBAMazepine Oral Susp] 300 mg PEG/G-TUBE Q8H Cranberry Fruit Extract [Cranberry] 500 mg PEG/G-TUBE Q12H Metoprolol Tartrate [Lopressor] 50 mg PEG/G-TUBE BID Ipratropium-Albuterol Nebulize [Duoneb 0.5 mg-3 mg/3 ml Soln] 3 ml INHALATION RT-QID ampul.neb Polyethylene Glycol 3350 [Miralax] 17 gm PO HS Oxybutynin Chloride [Ditropan Oral Soln] 5 mg PEG/G-TUBE TID Discharge Medication List Amantadine 50mg/5ml 100 mg PEG/G-TUBE Q12H 12/28/17 [History] Ascorbic Acid [Vitamin C] 250 mg PEG/G-TUBE DAILY 12/28/17 [History] Cholecalciferol [Vitamin D3 (25 Mcg = 1000 Iu)] 1,000 unit PEG/G-TUBE DAILY 12/28/17 [History] Docusate Oral Soln [Colace Oral Soln] 200 mg PEG/G-TUBE BID 12/28/17 [History] Scopolamine 1.5MG/72Hr Patch [TransDerm Scop] 1 patch TRANSDERM Q72H 12/28/17 [History] guaiFENesin [guaiFENesin Oral Solution] 200 mg PEG/G-TUBE Q6H PRN 12/28/17 [History] Baclofen 5 mg PEG/G-TUBE TID 04/07/18 [History] Furosemide [Lasix] 20 mg PEG/G-TUBE DAILY 05/24/18 [History] Acetaminophen Oral Susp [Tylenol] 320 mg PEG/G-TUBE Q6H PRN 01/26/19 [History] Omeprazole Magnesium [PriLOSEC Oral Susp] 20 mg PEG/G-TUBE DAILY 01/26/19 [History] carBAMazepine [carBAMazepine Oral Susp] 300 mg PEG/G-TUBE Q8H 04/15/19 [History] Cranberry Fruit Extract [Cranberry] 500 mg PEG/G-TUBE Q12H 06/03/19 [History] Metoprolol Tartrate [Lopressor] 50 mg PEG/G-TUBE BID 07/29/19 [History] Ipratropium-Albuterol Nebulize [Duoneb 0.5 mg-3 mg/3 ml Soln] 3 ml INHALATION RT-QID ampul.neb 08/04/19 [Rx] Oxybutynin Chloride [Ditropan Oral Soln] 5 mg PEG/G-TUBE TID 09/08/19 [History] Polyethylene Glycol 3350 [Miralax] 17 gm PO HS 09/08/19 [History] Vancomycin 1,000 mg IVPB Q12HR #20 vial 09/23/19 [Rx] Follow up Appointment(s)/Referral(s): Matteo Hernandez MD [Primary Care Provider] - 1-2 days Nathan Yanez MD [STAFF PHYSICIAN] - 2 Weeks
[2019-09-23 16:41] VITALS: PULSE 97
[2019-09-24] MEDS ORDERED: VANCOMYCIN TROUGH DUE 1 EACH MISC MISCELLANE ONE (08:00)
== END 2019-09-23 17:39 | DRG 870 ==
LOC: EC 15:30 → 3SCARD 16:46 → 2SICU 19:18 → 5NMEDONC 09-20 17:55
PROVIDERS: ADMIT Family Medicine; ATTEND Family Medicine
PROC: 0BH17EZ Insertion of Endotracheal Airway into Trachea, Via Natural or Artificial Opening (ICD-10-PCS; principal; 2019-09-13)
PROC: 5A1955Z Respiratory Ventilation, Greater than 96 Consecutive Hours (ICD-10-PCS; principal; 2019-09-13)
PROC: 0B968ZZ Drainage of Right Lower Lobe Bronchus, Via Natural or Artificial Opening Endoscopic (ICD-10-PCS; 2019-09-13)
PROC: 0B9G8ZZ Drainage of Left Upper Lung Lobe, Via Natural or Artificial Opening Endoscopic (ICD-10-PCS; 2019-09-13)
PROC: 0B9J8ZZ Drainage of Left Lower Lung Lobe, Via Natural or Artificial Opening Endoscopic (ICD-10-PCS; 2019-09-13)
PROC: 0B9F8ZZ Drainage of Right Lower Lung Lobe, Via Natural or Artificial Opening Endoscopic (ICD-10-PCS; 2019-09-13)
PROC: 0B9C8ZZ Drainage of Right Upper Lung Lobe, Via Natural or Artificial Opening Endoscopic (ICD-10-PCS; 2019-09-13)
PROC: 0B9H8ZZ Drainage of Lung Lingula, Via Natural or Artificial Opening Endoscopic (ICD-10-PCS; 2019-09-13)
PROC: 0B9D8ZX Drainage of Right Middle Lung Lobe, Via Natural or Artificial Opening Endoscopic, Diagnostic (ICD-10-PCS; 2019-09-13)
PROC: 02HV33Z Insertion of Infusion Device into Superior Vena Cava, Percutaneous Approach (ICD-10-PCS; 2019-09-13)
PROC: 4A133B1 Monitoring of Arterial Pressure, Peripheral, Percutaneous Approach (ICD-10-PCS; 2019-09-13)
PROC: 4A133J1 Monitoring of Arterial Pulse, Peripheral, Percutaneous Approach (ICD-10-PCS; 2019-09-13)
PROC: 02HV33Z Insertion of Infusion Device into Superior Vena Cava, Percutaneous Approach (ICD-10-PCS; 2019-09-18)
DX: A41.02 Sepsis due to Methicillin resistant Staphylococcus aureus (principal); J69.0 Pneumonitis due to inhalation of food and vomit; J96.01 Acute respiratory failure with hypoxia; B37.1 Pulmonary candidiasis; J15.1 Pneumonia due to Pseudomonas; R53.2 Functional quadriplegia; J15.212 Pneumonia due to Methicillin resistant Staphylococcus aureus; N39.0 Urinary tract infection, site not specified; K52.1 Toxic gastroenteritis and colitis; E87.3 Alkalosis; B37.0 Candidal stomatitis; B37.89 Other sites of candidiasis; D62 Acute posthemorrhagic anemia; J44.0 Chronic obstructive pulmonary disease with (acute) lower respiratory infection; M62.50 Muscle wasting and atrophy, not elsewhere classified, unspecified site; F32.9 Major depressive disorder, single episode, unspecified; E87.6 Hypokalemia; T36.95XA Adverse effect of unspecified systemic antibiotic, initial encounter; K21.9 Gastro-esophageal reflux disease without esophagitis; R65.20 Severe sepsis without septic shock; R13.10 Dysphagia, unspecified; I10 Essential (primary) hypertension; G35 Multiple sclerosis; B96.20 Unspecified Escherichia coli [E. coli] as the cause of diseases classified elsewhere; B96.4 Proteus (mirabilis) (morganii) as the cause of diseases classified elsewhere; D50.9 Iron deficiency anemia, unspecified; Z79.899 Other long term (current) drug therapy; Z88.8 Allergy status to other drugs, medicaments and biological substances; Z87.440 Personal history of urinary (tract) infections; Z86.718 Personal history of other venous thrombosis and embolism; Z93.1 Gastrostomy status; Z86.19 Personal history of other infectious and parasitic diseases; Z86.14 Personal history of Methicillin resistant Staphylococcus aureus infection; Z74.01 Bed confinement status; Z87.01 Personal history of pneumonia (recurrent)
CPT/HCPCS: 31622; 36415; 36573; 36600; 51702; 71045; 80048; 80053; 80202; 81001; 82728; 82805; 83540; 83550; 83605; 83735; 84100; 84132; 84484; 85025; 85027; 85610; 85730; 87040; 87070; 87077; 87086; 87102; 87116; 87186; 87205; 87206; 87252; 87324; 87496; 87498; 87502; 87529; 87634; 87798; 88108; 88305; 89050; 93005; 93306; 94002; 94003; 94640; 94760; 96365; 96366; 96367; 99285

== ENCOUNTER 2019-11-28 16:58 | Emergency (ER) | payer MEDICARE, OTHER ==
[2019-11-28 17:12] VITALS: TEMP 97.8
[2019-11-28 17:32] LABS: Appearance,Urine Clear (Clear); Bilirubin,Urine Negative (Negative); Blood,Urine Negative (Negative); Color,Urine Yellow; Glucose,Urine (UA) Negative (Negative); Ketones,Urine Negative (Negative); Leukocyte Esterase,Urine Small (Negative); Mucus,Urine Rare /hpf; Nitrite,Urine Negative (Negative); PH, Urine 6.5 (5.0-8.0); Protein,Urine 1+ (Negative); RBC,Urine 4 /hpf (0-5); Specific Gravity,Urine 1.019 (1.001-1.035); Squamous Epithelial Cell,Urine <1 /hpf (0-4); WBC,Urine 6 /hpf (0-5)
[2019-11-28] MEDS ORDERED: SODIUM CHLORIDE 0.9% 1,000 ML IV STA (17:56)
[2019-11-28 17:57] LABS: Basophils % (A) 1 %; Eosinophils # (A) 0.2 k/uL (0-0.7); Eosinophils % (A) 3 %; HCT 46.2 % (39.0-53.0); HGB 14.7 gm/dL (13.0-17.5); Lymphocytes # (A) 0.8 k/uL (1.0-4.8); Lymphocytes % (A) 15 %; MCH 27.3 pg (25.0-35.0); MCHC 31.9 g/dL (31.0-37.0); MCV 85.8 fL (80.0-100.0); Mean Platelet Volume 8.1; Monocytes # (A) 0.3 k/uL (0-1.0); Monocytes % (A) 5 %; Neutrophils # (A) 4.1 k/uL (1.3-7.7); Neutrophils % (A) 75 %; Platelet Count 448 k/uL (150-450); RBC 5.38 m/uL (4.30-5.90); RDW 15.3 % (11.5-15.5); WBC 5.5 k/uL (3.8-10.6)
[2019-11-28 18:07] LABS: Partial Thromboplastin Time 26.8 sec (22.0-30.0); Prothrombin Time 10.7 sec (9.0-12.0)
[2019-11-28 18:08] LABS: ALT 19 U/L (4-49); AST 42 U/L (17-59); African American GFR (CKD) >90 (>60 ml/min/1.73 sqM); Albumin 4.3 g/dL (3.5-5.0); Alkaline Phosphatase 177 U/L (38-126); Anion Gap 10 mmol/L; Blood Urea Nitrogen 22 mg/dL (9-20); Calcium 9.2 mg/dL (8.4-10.2); Carbon Dioxide 25 mmol/L (22-30); Chloride 102 mmol/L (98-107); Glucose 115 mg/dL (74-99); Non-African American GFR(CKD) >90 (>60 ml/min/1.73 sqM); Potassium 4.9 mmol/L (3.5-5.1); Sodium 137 mmol/L (137-145); Total Bilirubin 0.6 mg/dL (0.2-1.3); Total Protein 8.6 g/dL (6.3-8.2)
--- NOTE | 2019-11-28 18:11 | ED ---
General Adult HPI - General Chief complaint: Altered Mental Status Stated complaint: altered mental status Time Seen by Provider: 11/28/19 17:17 Source: family, EMS Mode of arrival: ambulatory Limitations: no limitations - History of Present Illness Initial comments: Dictation was produced using [employer] English dictation software. please excuse any grammatical, word or spelling errors. Chief Complaint: 59-year-old male past medical history of multiple sclerosis, chronic contractures, chronic debility resents altered mental status. History of Present Illness: A 59-year-old male who presents today via EMS from long-term facility for altered mental status. Patient is accompanied by sister who reports that patient appears altered. Patient's sister is the power of privacy attorney. Patient has history of multiple sclerosis. Sister describes that patient's current clinical condition is from multiple sclerosis. He does see a neurologist Dr. Dotson. He does not take any medications for his MS at this time. According to sister patient had been having twitching episodes mainly to his right lower face. She reports that the symptoms started at approximately 3 PM when she went to go visit him. Typically is mildly interactive and can have some meaningful responses like laughing that certain things and purposefully using his left upper extremity. Patient unable to provide a prescription for some significant mental status. Sister reports that patient has chronic nystagmus to his left eye, she reports that it appears that he also has nystagmus to the right as well. The ROS documented in this emergency department record has been reviewed and confirmed by me. Those systems with pertinent positive or negative responses have been documented in the HPI. All other systems are other negative and/or noncontributory. PHYSICAL EXAM: General Impression: No convulsive activity, contractures of all extremities HEENT: dry mucous membranes Cardiovascular: Tachycardic Chest: Bilateral breath sounds Abdomen: Bowel sounds present, abdomen soft, non-distended, feeding tube in place Musculoskeletal: Pulses present and equal in all extremities, no peripheral edema Motor: tonic-clonic activity Neurological: Bilateral persistent nystagmus, not following commands, no twitching of the face Skin: Intact with no visualized rashes ED course: 59-year-old male presents with altered mental status. Patient has extensive neurologic history. As upon arrival shows heart rate of 101, rest of vital signs within acceptable limits. Laboratory evaluation obtained. CBC unremarkable. Coag panel unremarkable. Metabolic panel shows some slight dehydration. Rest metabolic panel is negative. Urinalysis shows 6 white blood cells. Urine drug screen is negative. Computed tomography scan of the head and C-spine was obtained showing no acute processes. Patient does have chronic arachnoid cyst. Chest x-ray is nonacute. It is unclear what exactly is causing patient's altered mental status. It's likely secondary to his multiple sclerosis. Discussed with sister that I would recommend having patient transferred to [facility] for neurologic evaluation. Sister who is the power of privacy attorney refuses to have patient sent to [facility] due to personal reasons. It was recommended to have patient sent to either [facility] or another hospital for neurology evaluation however she requested that patient be dispositioned back to long-term. She states that he appears more at baseline currently. She reports that she was more concerned about the twitching to his face. I did not witness any twitching or seizure- like activity. Does however have bilateral nystagmus that this reports is chronic in the left eye. Patient will be discharge back to long-term. Sister reports that should worsening symptoms or any new concerning symptoms arise she will request to long-term to have him transferred to [facility]. Patient appears comfortable at this time. His current clinical condition is very complex. sister/power of privacy attorney is understandable that disposition back to long-term is against my recommendations. She understands that he could experience worsening neurologic condition possibly even worsening morbidity and even mortality. EKG interpretation: Ventricular rate 103, sinus tachycardia, AZ interval 94, QRS 70, QTc 450. No AZ prolongation, no QTC prolongation, no ST or T-wave changes noted. EKG compared to sever 06/20/2019 showing no changes. Overall, this EKG is unremarkable - Related Data Home Medications Medication Instructions Recorded Confirmed Amantadine 50mg/5ml 100 mg PEG/G-TUBE Q12H 12/28/17 09/08/19 Ascorbic Acid [Vitamin C] 250 mg PEG/G-TUBE DAILY 12/28/17 09/08/19 Cholecalciferol [Vitamin D3 (25 1,000 unit PEG/G-TUBE DAILY 12/28/17 09/08/19 Mcg = 1000 Iu)] Docusate Oral Soln [Colace Oral 200 mg PEG/G-TUBE BID 12/28/17 09/08/19 Soln] Scopolamine 1.5MG/72Hr Patch 1 patch TRANSDERM Q72H 12/28/17 09/08/19 [TransDerm Scop] guaiFENesin [guaiFENesin Oral 200 mg PEG/G-TUBE Q6H PRN 12/28/17 09/08/19 Solution] Baclofen 5 mg PEG/G-TUBE TID 04/07/18 09/08/19 Furosemide [Lasix] 20 mg PEG/G-TUBE DAILY 05/24/18 09/08/19 Acetaminophen Oral Susp [Tylenol] 320 mg PEG/G-TUBE Q6H PRN 01/26/19 09/08/19 Omeprazole Magnesium [PriLOSEC 20 mg PEG/G-TUBE DAILY 01/26/19 09/08/19 Oral Susp] carBAMazepine [carBAMazepine Oral 300 mg PEG/G-TUBE Q8H 04/15/19 09/08/19 Susp] Cranberry Fruit Extract [Cranberry] 500 mg PEG/G-TUBE Q12H 06/03/19 09/08/19 Metoprolol Tartrate [Lopressor] 50 mg PEG/G-TUBE BID 07/29/19 09/08/19 Oxybutynin Chloride [Ditropan Oral 5 mg PEG/G-TUBE TID 09/08/19 09/08/19 Soln] Polyethylene Glycol 3350 [Miralax] 17 gm PO HS 09/08/19 09/08/19 Previous Rx's Medication Instructions Recorded Ipratropium-Albuterol Nebulize 3 ml INHALATION RT-QID ampul.neb 08/04/19 [Duoneb 0.5 mg-3 mg/3 ml Soln] Vancomycin 1,000 mg IVPB Q12HR #20 vial 09/23/19 Amoxic-Pot Clav 875-125Mg 1 tab PO Q12HR 10 Days #20 tab 11/23/19 [Augmentin 875-125] Allergies Allergy/AdvReac Type Severity Reaction Status Date / Time meropenem [From Merrem] Allergy Rash/Hives Verified 11/23/19 14:17 Review of Systems ROS Statement: Those systems with pertinent positive or pertinent negative responses have been documented in the HPI. ROS Other: All systems not noted in ROS Statement are negative. Past Medical History Past Medical History: Deep Vein Thrombosis (DVT), GERD/Reflux, Hypertension, Musculoskeletal Disorder, Pneumonia, Renal Disease Additional Past Medical History / Comment(s): MS, cognitive impariment/ non verbal, NPO-peg tube,DVT-arm , IDC ,INCONT OF BOWEL. DYSAR THRIA/ANARTHRIA/DYSPHAGIA. BEDBOUND, RACHEL LIFT TO W/C, neurogenic bladder,m History of Any Multi-Drug Resistant Organisms: ESBL, MRSA Date of last positivie culture/infection: 09/13/19-MRSA; 11/23/19 ESBL-E.coli MDRO Source:: Broch lavage-Mrsa; Urine -ESBL Additional Past Surgical History / Comment(s): PEG TUBE, HX OF GASTROSTOMY, Past Anesthesia/Blood Transfusion Reactions: Unable to Obtain Past Psychological History: Depression Smoking Status: Unknown if ever smoked Past Alcohol Use History: None Reported Past Drug Use History: None Reported - Past Family History Father Family Medical History: Unable to Obtain Additional Family Medical History / Comment(s): patient is nonverbal Mother Family Medical History: Unable to Obtain Additional Family Medical History / Comment(s): patient is nonverbal General Exam Limitations: no limitations Course Vital Signs 11/28/19 17:06 Temperature 97.8 F Pulse Rate 101 H Respiratory 20 Rate Blood Pressure 102/89 O2 Sat by Pulse 96 Oximetry Medical Decision Making - Lab Data Result diagrams: 11/28/19 17:30 11/28/19 17:30 Lab Results 11/28/19 11/28/19 11/28/19 Range/Units 17:15 17:15 17:30 WBC 5.5 (3.8-10.6) k/uL RBC 5.38 (4.30-5.90) m/uL Hgb 14.7 (13.0-17.5) gm/dL Hct 46.2 (39.0-53.0) % MCV 85.8 (80.0-100.0) fL MCH 27.3 (25.0-35.0) pg MCHC 31.9 (31.0-37.0) g/dL RDW 15.3 (11.5-15.5) % Plt Count 448 (150-450) k/uL Neutrophils % 75 % Lymphocytes % 15 % Monocytes % 5 % Eosinophils % 3 % Basophils % 1 % Neutrophils # 4.1 (1.3-7.7) k/uL Lymphocytes # 0.8 L (1.0-4.8) k/uL Monocytes # 0.3 (0-1.0) k/uL Eosinophils # 0.2 (0-0.7) k/uL Basophils # 0.0 (0-0.2) k/uL PT (9.0-12.0) sec INR (<1.2) APTT (22.0-30.0) sec Sodium (137-145) mmol/L Potassium (3.5-5.1) mmol/L Chloride (98-107) mmol/L Carbon Dioxide (22-30) mmol/L Anion Gap mmol/L BUN (9-20) mg/dL Creatinine (0.66-1.25) mg/dL Est GFR (CKD-EPI)AfAm (>60 ml/min/1.73 sqM) Est GFR (CKD-EPI)NonAf (>60 ml/min/1.73 sqM) Glucose (74-99) mg/dL Calcium (8.4-10.2) mg/dL Magnesium (1.6-2.3) mg/dL Total Bilirubin (0.2-1.3) mg/dL AST (17-59) U/L ALT (4-49) U/L Alkaline Phosphatase (38-126) U/L Troponin I (0.000-0.034) ng/mL Total Protein (6.3-8.2) g/dL Albumin (3.5-5.0) g/dL Urine Color Yellow Urine Appearance Clear (Clear) Urine pH 6.5 (5.0-8.0) Ur Specific Ovid 1.019 (1.001-1.035) Urine Protein 1+ H (Negative) Urine Glucose (UA) Negative (Negative) Urine Ketones Negative (Negative) Urine Blood Negative (Negative) Urine Nitrite Negative (Negative) Urine Bilirubin Negative (Negative) Urine Urobilinogen 2.0 (<2.0) mg/dL Ur Leukocyte Esterase Small H (Negative) Urine RBC 4 (0-5) /hpf Urine WBC 6 H (0-5) /hpf Ur Squamous Epith Cells <1 (0-4) /hpf Urine Mucus Rare H (None) /hpf Urine Opiates Screen Not Detected (NotDetected) Ur Oxycodone Screen Not Detected (NotDetected) Urine Methadone Screen Not Detected (NotDetected) Ur Propoxyphene Screen Not Detected (NotDetected) Ur Barbiturates Screen Not Detected (NotDetected) U Tricyclic Antidepress Not Detected (NotDetected) Ur Phencyclidine Scrn Not Detected (NotDetected) Ur Amphetamines Screen Not Detected (NotDetected) U Methamphetamines Scrn Not Detected (NotDetected) U Benzodiazepines Scrn Not Detected (NotDetected) Urine Cocaine Screen Not Detected (NotDetected) U Marijuana (THC) Screen Not Detected (NotDetected) 11/28/19 11/28/19 11/28/19 Range/Units 17:30 17:30 17:30 WBC (3.8-10.6) k/uL RBC (4.30-5.90) m/uL Hgb (13.0-17.5) gm/dL Hct (39.0-53.0) % MCV (80.0-100.0) fL MCH (25.0-35.0) pg MCHC (31.0-37.0) g/dL RDW (11.5-15.5) % Plt Count (150-450) k/uL Neutrophils % % Lymphocytes % % Monocytes % % Eosinophils % % Basophils % % Neutrophils # (1.3-7.7) k/uL Lymphocytes # (1.0-4.8) k/uL Monocytes # (0-1.0) k/uL Eosinophils # (0-0.7) k/uL Basophils # (0-0.2) k/uL PT 10.7 (9.0-12.0) sec INR 1.0 (<1.2) APTT 26.8 (22.0-30.0) sec Sodium 137 (137-145) mmol/L Potassium 4.9 (3.5-5.1) mmol/L Chloride 102 (98-107) mmol/L Carbon Dioxide 25 (22-30) mmol/L Anion Gap 10 mmol/L BUN 22 H (9-20) mg/dL Creatinine 0.69 (0.66-1.25) mg/dL Est GFR (CKD-EPI)AfAm >90 (>60 ml/min/1.73 sqM) Est GFR (CKD-EPI)NonAf >90 (>60 ml/min/1.73 sqM) Glucose 115 H (74-99) mg/dL Calcium 9.2 (8.4-10.2) mg/dL Magnesium (1.6-2.3) mg/dL Total Bilirubin 0.6 (0.2-1.3) mg/dL AST 42 (17-59) U/L ALT 19 (4-49) U/L Alkaline Phosphatase 177 H (38-126) U/L Troponin I 0.013 (0.000-0.034) ng/mL Total Protein 8.6 H (6.3-8.2) g/dL Albumin 4.3 (3.5-5.0) g/dL Urine Color Urine Appearance (Clear) Urine pH (5.0-8.0) Ur Specific Ovid (1.001-1.035) Urine Protein (Negative) Urine Glucose (UA) (Negative) Urine Ketones (Negative) Urine Blood (Negative) Urine Nitrite (Negative) Urine Bilirubin (Negative) Urine Urobilinogen (<2.0) mg/dL Ur Leukocyte Esterase (Negative) Urine RBC (0-5) /hpf Urine WBC (0-5) /hpf Ur Squamous Epith Cells (0-4) /hpf Urine Mucus (None) /hpf Urine Opiates Screen (NotDetected) Ur Oxycodone Screen (NotDetected) Urine Methadone Screen (NotDetected) Ur Propoxyphene Screen (NotDetected) Ur Barbiturates Screen (NotDetected) U Tricyclic Antidepress (NotDetected) Ur Phencyclidine Scrn (NotDetected) Ur Amphetamines Screen (NotDetected) U Methamphetamines Scrn (NotDetected) U Benzodiazepines Scrn (NotDetected) Urine Cocaine Screen (NotDetected) U Marijuana (THC) Screen (NotDetected) 11/28/19 Range/Units 17:30 WBC (3.8-10.6) k/uL RBC (4.30-5.90) m/uL Hgb (13.0-17.5) gm/dL Hct (39.0-53.0) % MCV (80.0-100.0) fL MCH (25.0-35.0) pg MCHC (31.0-37.0) g/dL RDW (11.5-15.5) % Plt Count (150-450) k/uL Neutrophils % % Lymphocytes % % Monocytes % % Eosinophils % % Basophils % % Neutrophils # (1.3-7.7) k/uL Lymphocytes # (1.0-4.8) k/uL Monocytes # (0-1.0) k/uL Eosinophils # (0-0.7) k/uL Basophils # (0-0.2) k/uL PT (9.0-12.0) sec INR (<1.2) APTT (22.0-30.0) sec Sodium (137-145) mmol/L Potassium (3.5-5.1) mmol/L Chloride (98-107) mmol/L Carbon Dioxide (22-30) mmol/L Anion Gap mmol/L BUN (9-20) mg/dL Creatinine (0.66-1.25) mg/dL Est GFR (CKD-EPI)AfAm (>60 ml/min/1.73 sqM) Est GFR (CKD-EPI)NonAf (>60 ml/min/1.73 sqM) Glucose (74-99) mg/dL Calcium (8.4-10.2) mg/dL Magnesium 2.2 (1.6-2.3) mg/dL Total Bilirubin (0.2-1.3) mg/dL AST (17-59) U/L ALT (4-49) U/L Alkaline Phosphatase (38-126) U/L Troponin I (0.000-0.034) ng/mL Total Protein (6.3-8.2) g/dL Albumin (3.5-5.0) g/dL Urine Color Urine Appearance (Clear) Urine pH (5.0-8.0) Ur Specific Ovid (1.001-1.035) Urine Protein (Negative) Urine Glucose (UA) (Negative) Urine Ketones (Negative) Urine Blood (Negative) Urine Nitrite (Negative) Urine Bilirubin (Negative) Urine Urobilinogen (<2.0) mg/dL Ur Leukocyte Esterase (Negative) Urine RBC (0-5) /hpf Urine WBC (0-5) /hpf Ur Squamous Epith Cells (0-4) /hpf Urine Mucus (None) /hpf Urine Opiates Screen (NotDetected) Ur Oxycodone Screen (NotDetected) Urine Methadone Screen (NotDetected) Ur Propoxyphene Screen (NotDetected) Ur Barbiturates Screen (NotDetected) U Tricyclic Antidepress (NotDetected) Ur Phencyclidine Scrn (NotDetected) Ur Amphetamines Screen (NotDetected) U Methamphetamines Scrn (NotDetected) U Benzodiazepines Scrn (NotDetected) Urine Cocaine Screen (NotDetected) U Marijuana (THC) Screen (NotDetected) Disposition Clinical Impression: Altered mental status Disposition: HOME SELF-CARE Condition: Fair Instructions (If sedation given, give patient instructions): Altered Mental Status (ED) Is patient prescribed a controlled substance at d/c from ED?: No Referrals: Matteo Hernandez MD [Primary Care Provider] - 1-2 days Deirdre Dotson MD [Medical Doctor] - 1-2 days Time of Disposition: 20:11
--- NOTE | 2019-11-28 18:17 | XR ---
EXAMINATION TYPE: XR chest 2V DATE OF EXAM: 11/28/2019 COMPARISON: Chest x-ray September 22, 2019 HISTORY: Altered mental status and weakness. TECHNIQUE: Frontal and lateral views of the chest are obtained. FINDINGS: Interval removal of right-sided PICC line. There is some chronic parenchymal changes witho ut suspicious new focal air space opacity, pleural effusion, or pneumothorax seen. Low lung volumes redemonstrated. The cardiac silhouette size remain within normal limits. The osseous structures are demineralized. IMPRESSION: Low lung volumes and chronic changes without acute pulmonary process currently.
--- NOTE | 2019-11-28 18:21 | CT ---
EXAMINATION TYPE: CT brain cspine wo con DATE OF EXAM: 11/28/2019 COMPARISON: CT brain June 04, 2019 HISTORY: Altered mental status. CT DLP: 1366.3 mGycm. Automated Exposure Control for Dose Reduction was Utilized. TECHNIQUE: CT scan of the head and cervical spine are performed without contrast. FINDINGS: There is no acute intracranial hemorrhage or midline shift identified. Diffuse ventricula r and sulcal prominence. Low attenuation in deep and periventricular white matter. Calvarium intact. Prominence of CSF anterior to the inferior right cerebellar hemisphere suspicious for arachnoid cyst axial image 11 unchanged from this and several prior studies with local mass effect . The globes are intact and the visualized sinuses are clear. Cervical spine is visualized in its entirety from C1 through upper thoracic levels and demonstrates r eversal of normal cervical curvature centered C4 level without evidence of acute fracture or dislocat ion. Prevertebral soft tissue appears within normal limits. The C1-C2 articulation is within normal limits on the coronal images. There is dextroconvex scoliosis centered upper thoracic spine on krysta nal images. Mild disc space narrowing and anterior spurring C4-C5 through C6-C7 levels. Spinal canal grossly preserved on sagittal images. Axial images show multilevel uncovertebral facet degenerative c hanges contributing to multilevel bilateral neural foraminal narrowing. Thyroid gland shows suspiciou s hypodense area could reflect greater than 1 cm nodule anteriorly upper to mid pole level, nonemerge nt thyroid ultrasound follow-up advised if this is not known finding. IMPRESSION: 1. There is no acute fracture or dislocation evident in the cervical spine. 2. No acute intracranial hemorrhage or midline shift is seen. [id number] diffuse cerebral atrop hy and moderate to advanced chronic small vessel ischemic change with anterior right posterior fossa arachnoid cyst felt present. No significant change from prior studies.
[2019-11-28 18:23] LABS: Amphetamine Screen,Urine Not Detected (NotDetected); Barbiturate Screen,Urine Not Detected (NotDetected); Benzodiazepines Screen,Urine Not Detected (NotDetected); Cocaine Screen,Urine Not Detected (NotDetected); Methadone Screen, Urine Not Detected (NotDetected); Opiate Screen,Urine Not Detected (NotDetected); Oxycodone Screen, Urine Not Detected (NotDetected); Phencyclidine Screen,Urine Not Detected (NotDetected); Tricyclic Antidepressant,Urine Not Detected (NotDetected); Urn Cannabinoid Scrn Not Detected (NotDetected)
[2019-11-28 21:24] VITALS: BP 145/89; PULSE 96; RESP 18
== END 2019-11-28 21:20 | disposition home or self-care (01) ==
LOC: EC 16:58
DX: G31.84 Mild cognitive impairment of uncertain or unknown etiology (principal); R00.0 Tachycardia, unspecified; E86.0 Dehydration; R82.81 Pyuria; G93.0 Cerebral cysts; H55.00 Unspecified nystagmus; K21.9 Gastro-esophageal reflux disease without esophagitis; I10 Essential (primary) hypertension; G35 Multiple sclerosis; N31.9 Neuromuscular dysfunction of bladder, unspecified; F32.9 Major depressive disorder, single episode, unspecified; Z88.1 Allergy status to other antibiotic agents; Z79.899 Other long term (current) drug therapy; Z93.1 Gastrostomy status; Z86.14 Personal history of Methicillin resistant Staphylococcus aureus infection; Z74.01 Bed confinement status; Z53.8 Procedure and treatment not carried out for other reasons
CPT/HCPCS: 36415; 70450; 71046; 72125; 80053; 80306; 81001; 83605; 83735; 84484; 85025; 85610; 85730; 87040; 87077; 87186; 93005; 96360; 99285

== ENCOUNTER 2019-12-15 23:33 | Inpatient (IN) | payer MEDICARE, OTHER ==
[2019-12-16 00:35] LABS: Basophils % (A) 0 %; Eosinophils # (A) 0.1 k/uL (0-0.7); Eosinophils % (A) 1 %; HCT 41.3 % (39.0-53.0); HGB 13.4 gm/dL (13.0-17.5); Lymphocytes # (A) 1.1 k/uL (1.0-4.8); Lymphocytes % (A) 8 %; MCH 27.9 pg (25.0-35.0); MCHC 32.6 g/dL (31.0-37.0); MCV 85.6 fL (80.0-100.0); Mean Platelet Volume 8.7; Monocytes # (A) 0.9 k/uL (0-1.0); Monocytes % (A) 7 %; Neutrophils # (A) 11.8 k/uL (1.3-7.7); Neutrophils % (A) 83 %; Platelet Count 291 k/uL (150-450); RBC 4.82 m/uL (4.30-5.90); RDW 15.8 % (11.5-15.5); WBC 14.1 k/uL (3.8-10.6)
[2019-12-16 00:44] LABS: ALT 17 U/L (4-49); AST 19 U/L (17-59); African American GFR (CKD) >90 (>60 ml/min/1.73 sqM); Albumin 3.2 g/dL (3.5-5.0); Alkaline Phosphatase 124 U/L (38-126); Anion Gap 7 mmol/L; Blood Urea Nitrogen 28 mg/dL (9-20); Calcium 8.4 mg/dL (8.4-10.2); Carbon Dioxide 24 mmol/L (22-30); Chloride 102 mmol/L (98-107); Glucose 101 mg/dL (74-99); Non-African American GFR(CKD) 87 (>60 ml/min/1.73 sqM); Potassium 3.6 mmol/L (3.5-5.1); Sodium 133 mmol/L (137-145); Total Bilirubin 0.3 mg/dL (0.2-1.3); Total Protein 6.3 g/dL (6.3-8.2)
[2019-12-16] MEDS: SODIUM CHLORIDE 0.9% 500 ML 500 ML IV SCH ×2 (00:45→01:36)
[2019-12-16 00:48] LABS: INR 1.1 (<1.2); Partial Thromboplastin Time 30.3 sec (22.0-30.0); Prothrombin Time 11.2 sec (9.0-12.0)
--- NOTE | 2019-12-16 00:48 | XR ---
EXAMINATION TYPE: XR chest 1V portable DATE OF EXAM: 12/16/2019 COMPARISON: 11/28/2019 HISTORY: Altered mental status fever TECHNIQUE: FINDINGS: There is some patchy atelectasis in the lower lung prater. Heart size is normal. There is n o heart failure. Thoracic aorta is atheromatous. There is no pleural effusion. IMPRESSION: Mild atelectasis in the lower lung prater increased compared to old exam. Normal heart.
[2019-12-16 00:51] LABS: Appearance,Urine Cloudy (Clear); Bacteria,Urine Moderate /hpf; Bilirubin,Urine Negative (Negative); Blood,Urine Trace (Negative); Budding Yeast,Urine Few /hpf; Color,Urine Yellow; Glucose,Urine (UA) Negative (Negative); Hyaline Casts,Urine 1 /lpf (0-2); Ketones,Urine Negative (Negative); Leukocyte Esterase,Urine Large (Negative); Mucus,Urine Rare /hpf; Nitrite,Urine Negative (Negative); PH, Urine 5.5 (5.0-8.0); Protein,Urine Trace (Negative); RBC,Urine 5 /hpf (0-5); Specific Gravity,Urine 1.013 (1.001-1.035); Urobilinogen,Urine <2.0 mg/dL (<2.0); WBC,Urine 130 /hpf (0-5)
[2019-12-16] MEDS ORDERED: VANCOMYCIN IV PER PHARMACY 1 EACH MISC MISCELLANE PRN (00:55)
[2019-12-16] MEDS ORDERED: NALOXONE 0.4 MG/ML 1 ML VIAL IV PRN (01:01)
[2019-12-16] MEDS ORDERED: SODIUM CHLORIDE 0.9% 1,000 ML IV STA (01:06)
--- NOTE | 2019-12-16 01:07 | ED ---
General Adult HPI - General Chief complaint: Fever Stated complaint: Altered mental status Time Seen by Provider: 12/15/19 23:37 Source: EMS Mode of arrival: EMS Limitations: no limitations - History of Present Illness Initial comments: Dictation was produced using [employer] dictation software. please excuse any grammatical, word or spelling errors. Chief Complaint: 59-year-old male with past medical history of chronic debility, DVT, hypertension and pneumonia presents with abnormal urine. History of Present Illness: A 59-year-old male he has multiple comorbidities. Patient transferred from a neurologic senior living via EMS. According to patient's radiocommunications technician he was noted to have some clots in his urine. Patient has history of multidrug resistant urinary tract infections. Patient is a poor historian was ever is able to nod yes and no. Patient denies any pain. Patient has indwelling Stein catheter in place. Topology Professor does not know when the last Stein was changed. The ROS documented in this emergency department record has been reviewed and confirmed by me. Those systems with pertinent positive or negative responses h ave been documented in the HPI. All other systems are other negative and/or noncontributory. PHYSICAL EXAM: General Impression: Alert, nonverbal, not in acute distress HEENT: Normocephalic atraumatic, extra-ocular movements intact, pupils equal and reactive to light bilaterally, mucous membranes moist. Cardiovascular: Heart regular rate and rhythm, S1&S2 audible, no murmurs, rubs or gallops Chest: Lungs clear to auscultation bilaterally, no rhonchi, no wheeze, no rales Abdomen: Bowel sounds present, abdomen soft, non-tender, non-distended, no organomegaly, feeding tube in place Musculoskeletal: Pulses present and equal in all extremities, no peripheral edema Motor: no focal deficits noted Neurological: CN II-XII grossly intact, no focal motor or sensory deficits noted Skin: Intact with no visualized rashes Psych: Normal affect and mood ED course: 59-year-old male presents with concerns of urinary tract infection and fever. All signs upon arrival shows heart rate of 105, rest of vital signs within acceptable limits. Laboratory evaluation obtained. Leukocytosis 14.1, coag panel unremarkable. Hemoglobin stable. Metabolic panel unremarkable. Urinalysis consistent with urinary tract infection. Chest x-ray is nonacute. Microbiology was reviewed from the past. Patient has history of multidrug resistant bacteria's. This point is unclear which antibiotics he would benefit from. Patient given vancomycin and cefoxitin placed on sensitivities from the last 2 urinary tract infections. Patient will be admitted. Infectious disease on consult. Patient not showing any signs of sepsis he is however given intravenous fluids. There is a component of mild dehydration. EKG interpretation: Ventricular rate 103, sinus tachycardia,. Interval 152, QRS 80, QTc 455. No ID prolongation, no QTC prolongation, no ST or T-wave changes noted. Overall, this EKG is unremarkable - Related Data Home Medications Medication Instructions Recorded Confirmed Amantadine 50mg/5ml 100 mg PEG/G-TUBE Q12H 12/28/17 09/08/19 Ascorbic Acid [Vitamin C] 250 mg PEG/G-TUBE DAILY 12/28/17 09/08/19 Cholecalciferol [Vitamin D3 (25 1,000 unit PEG/G-TUBE DAILY 12/28/17 09/08/19 Mcg = 1000 Iu)] Docusate Oral Soln [Colace Oral 200 mg PEG/G-TUBE BID 12/28/17 09/08/19 Soln] Scopolamine 1.5MG/72Hr Patch 1 patch TRANSDERM Q72H 12/28/17 09/08/19 [TransDerm Scop] guaiFENesin [guaiFENesin Oral 200 mg PEG/G-TUBE Q6H PRN 12/28/17 09/08/19 Solution] Baclofen 5 mg PEG/G-TUBE TID 04/07/18 09/08/19 Furosemide [Lasix] 20 mg PEG/G-TUBE DAILY 05/24/18 09/08/19 Acetaminophen Oral Susp [Tylenol] 320 mg PEG/G-TUBE Q6H PRN 01/26/19 09/08/19 Omeprazole Magnesium [PriLOSEC 20 mg PEG/G-TUBE DAILY 01/26/19 09/08/19 Oral Susp] carBAMazepine [carBAMazepine Oral 300 mg PEG/G-TUBE Q8H 04/15/19 09/08/19 Susp] Cranberry Fruit Extract [Cranberry] 500 mg PEG/G-TUBE Q12H 06/03/19 09/08/19 Metoprolol Tartrate [Lopressor] 50 mg PEG/G-TUBE BID 07/29/19 09/08/19 Oxybutynin Chloride [Ditropan Oral 5 mg PEG/G-TUBE TID 09/08/19 09/08/19 Soln] Polyethylene Glycol 3350 [Miralax] 17 gm PO HS 09/08/19 09/08/19 Previous Rx's Medication Instructions Recorded Ipratropium-Albuterol Nebulize 3 ml INHALATION RT-QID ampul.neb 08/04/19 [Duoneb 0.5 mg-3 mg/3 ml Soln] Vancomycin 1,000 mg IVPB Q12HR #20 vial 09/23/19 Amoxic-Pot Clav 875-125Mg 1 tab PO Q12HR 10 Days #20 tab 11/23/19 [Augmentin 875-125] Allergies Allergy/AdvReac Type Severity Reaction Status Date / Time meropenem [From Merrem] Allergy Rash/Hives Verified 11/23/19 14:17 Review of Systems ROS Statement: Those systems with pertinent positive or pertinent negative responses have been documented in the HPI. ROS Other: All systems not noted in ROS Statement are negative. Past Medical History Past Medical History: Deep Vein Thrombosis (DVT), GERD/Reflux, Hypertension, Musculoskeletal Disorder, Pneumonia, Renal Disease Additional Past Medical History / Comment(s): MS, cognitive impariment/ non verbal, NPO-peg tube,DVT-arm , IDC ,INCONT OF BOWEL. DYSARTHRIA/ANARTHRIA/DYSPHAGIA. BEDBOUND, RACHEL LIFT TO W/C, neurogenic bladder,m History of Any Multi-Drug Resistant Organisms: ESBL, MRSA Date of last positivie culture/infection: 09/13/19-MRSA; 11/23/19 ESBL-E.coli MDRO Source:: Broch lavage-Mrsa; Urine -ESBL Additional Past Surgical History / Comment(s): PEG TUBE, HX OF GASTROSTOMY, Past Anesthesia/Blood Transfusion Reactions: Unable to Obtain Past Psychological History: Depression Smoking Status: Unknown if ever smoked Past Alcohol Use History: None Reported Past Drug Use History: None Reported - Past Family History Father Family Medical History: Unable to Obtain Additional Family Medical History / Comment(s): patient is nonverbal Mother Family Medical History: Unable to Obtain Additional Family Medical History / Comment(s): patient is nonverbal General Exam Limitations: no limitations Course Vital Signs 12/15/19 23:35 Temperature 99.1 F Pulse Rate 105 H Respiratory 20 Rate Blood Pressure 112/69 O2 Sat by Pulse 96 Oximetry Medical Decision Making - Lab Data Result diagrams: 12/16/19 00:08 12/16/19 00:08 Lab Results 12/16/19 12/16/19 12/16/19 Range/Units 00:08 00:08 00:08 WBC 14.1 H (3.8-10.6) k/uL RBC 4.82 (4.30-5.90) m/uL Hgb 13.4 (13.0-17.5) gm/dL Hct 41.3 (39.0-53.0) % MCV 85.6 (80.0-100.0) fL MCH 27.9 (25.0-35.0) pg MCHC 32.6 (31.0-37.0) g/dL RDW 15.8 H (11.5-15.5) % Plt Count 291 (150-450) k/uL Neutrophils % 83 % Lymphocytes % 8 % Monocytes % 7 % Eosinophils % 1 % Basophils % 0 % Neutrophils # 11.8 H (1.3-7.7) k/uL Lymphocytes # 1.1 (1.0-4.8) k/uL Monocytes # 0.9 (0-1.0) k/uL Eosinophils # 0.1 (0-0.7) k/uL Basophils # 0.0 (0-0.2) k/uL PT 11.2 (9.0-12.0) sec INR 1.1 (<1.2) APTT 30.3 H (22.0-30.0) sec Sodium 133 L (137-145) mmol/L Potassium 3.6 (3.5-5.1) mmol/L Chloride 102 (98-107) mmol/L Carbon Dioxide 24 (22-30) mmol/L Anion Gap 7 mmol/L BUN 28 H (9-20) mg/dL Creatinine 0.95 (0.66-1.25) mg/dL Est GFR (CKD-EPI)AfAm >90 (>60 ml/min/1.73 sqM) Est GFR (CKD-EPI)NonAf 87 (>60 ml/min/1.73 sqM) Glucose 101 H (74-99) mg/dL Plasma Lactic Acid [place] (0.7-2.0) mmol/L Calcium 8.4 (8.4-10.2) mg/dL Total Bilirubin 0.3 (0.2-1.3) mg/dL AST 19 (17-59) U/L ALT 17 (4-49) U/L Alkaline Phosphatase 124 (38-126) U/L Total Protein 6.3 (6.3-8.2) g/dL Albumin 3.2 L (3.5-5.0) g/dL Urine Color Urine Appearance (Clear) Urine pH (5.0-8.0) Ur Specific [place] (1.001-1.035) Urine Protein (Negative) Urine Glucose (UA) (Negative) Urine Ketones (Negative) Urine Blood (Negative) Urine Nitrite (Negative) Urine Bilirubin (Negative) Urine Urobilinogen (<2.0) mg/dL Ur Leukocyte Esterase (Negative) Urine RBC (0-5) /hpf Urine WBC (0-5) /hpf Urine WBC Clumps (None) /hpf Urine Bacteria (None) /hpf Hyaline Casts (0-2) /lpf Urine Mucus (None) /hpf Urine Yeast (Budding) (None) /hpf Influenza Type A RNA (Not Detectd) Influenza Type B (PCR) (Not Detectd) 12/16/19 12/16/19 12/16/19 Range/Units 00:08 00:30 00:41 WBC (3.8-10.6) k/uL RBC (4.30-5.90) m/uL Hgb (13.0-17.5) gm/dL Hct (39.0-53.0) % MCV (80.0-100.0) fL MCH (25.0-35.0) pg MCHC (31.0-37.0) g/dL RDW (11.5-15.5) % Plt Count (150-450) k/uL Neutrophils % % Lymphocytes % % Monocytes % % Eosinophils % % Basophils % % Neutrophils # (1.3-7.7) k/uL Lymphocytes # (1.0-4.8) k/uL Monocytes # (0-1.0) k/uL Eosinophils # (0-0.7) k/uL Basophils # (0-0.2) k/uL PT (9.0-12.0) sec INR (<1.2) APTT (22.0-30.0) sec Sodium (137-145) mmol/L Potassium (3.5-5.1) mmol/L Chloride (98-107) mmol/L Carbon Dioxide (22-30) mmol/L Anion Gap mmol/L BUN (9-20) mg/dL Creatinine (0.66-1.25) mg/dL Est GFR (CKD-EPI)AfAm (>60 ml/min/1.73 sqM) Est GFR (CKD-EPI)NonAf (>60 ml/min/1.73 sqM) Glucose (74-99) mg/dL Plasma Lactic Acid [place] 1.2 (0.7-2.0) mmol/L Calcium (8.4-10.2) mg/dL Total Bilirubin (0.2-1.3) mg/dL AST (17-59) U/L ALT (4-49) U/L Alkaline Phosphatase (38-126) U/L Total Protein (6.3-8.2) g/dL Albumin (3.5-5.0) g/dL Urine Color Yellow Urine Appearance Cloudy (Clear) Urine pH 5.5 (5.0-8.0) Ur Specific [place] 1.013 (1.001-1.035) Urine Protein Trace H (Negative) Urine Glucose (UA) Negative (Negative) Urine Ketones Negative (Negative) Urine Blood Trace H (Negative) Urine Nitrite Negative (Negative) Urine Bilirubin Negative (Negative) Urine Urobilinogen <2.0 (<2.0) mg/dL Ur Leukocyte Esterase Large H (Negative) Urine RBC 5 (0-5) /hpf Urine WBC 130 H (0-5) /hpf Urine WBC Clumps Many H (None) /hpf Urine Bacteria Moderate H (None) /hpf Hyaline Casts 1 (0-2) /lpf Urine Mucus Rare H (None) /hpf Urine Yeast (Budding) Few H (None) /hpf Influenza Type A RNA Not Detected (Not Detectd) Influenza Type B (PCR) Not Detected (Not Detectd) Disposition Clinical Impression: UTI (urinary tract infection) Disposition: ADMITTED IP TO THIS [facility] Condition: Fair Referrals: Matteo Hernandez MD [Primary Care Provider] - 1-2 days Decision Time: 01:07
[2019-12-16] MEDS ORDERED: VANCOMYCIN 1,250 MG in SODIUM CHLORIDE 0.9% 250 ML IVPB ONE (01:30)
[2019-12-16] MEDS: SODIUM CHLORIDE 0.9% 1,000 ML IV SCH (01:37)
[2019-12-16 02:29] LABS: Appearance,Urine Cloudy (Clear); Bilirubin,Urine Negative (Negative); Blood,Urine Small (Negative); Color,Urine Light Yellow; Glucose,Urine (UA) Negative (Negative); Ketones,Urine Negative (Negative); Leukocyte Esterase,Urine Large (Negative); Mucus,Urine Rare /hpf; Nitrite,Urine Negative (Negative); PH, Urine 5.5 (5.0-8.0); Protein,Urine Trace (Negative); RBC,Urine 5 /hpf (0-5); Specific Gravity,Urine 1.007 (1.001-1.035); Urobilinogen,Urine <2.0 mg/dL (<2.0); WBC,Urine 70 /hpf (0-5)
[2019-12-16] MEDS ORDERED: VANCOMYCIN 1,250 MG in SODIUM CHLORIDE 0.9% 250 ML IVPB SCH (14:00)
[2019-12-16] MEDS ORDERED: ACETAMINOPHEN ORAL SUSP 160 MG/5 ML CUP PEG/G-TUBE PRN (15:14)
[2019-12-16] MEDS ORDERED: guaiFENesin SYRUP 100MG/5ML 200 MG/10 ML CUP PEG/G-TUBE PRN (15:14)
[2019-12-16] MEDS ORDERED: IPRATROPIUM-ALBUTEROL 3 ML NEB INHALATION PRN (15:14)
[2019-12-16] MEDS ORDERED: NON FORMULARY DRUG (Cranberry Fruit Extract [Cranberry] 500 MG) PEG/G-TUBE SCH (15:15)
[2019-12-16] MEDS ORDERED: ALPRAZolam 0.25 MG TAB PO PRN (15:16)
[2019-12-16] MEDS ORDERED: HYDROmorphone 0.5 MG/0.5 ML SYRINGE IVP PRN (15:16)
--- NOTE | 2019-12-16 16:01 | HP ---
HISTORY AND PHYSICAL DATE OF SERVICE: 12/16/2019 CHIEF COMPLAINTS: Fever and change in mental status. HISTORY OF PRESENT ILLNESS: This 59-year-old gentleman with a past medical history of multiple medical problems, including history of multiple sclerosis, history of DVT, history of GERD, hypertension, history of pneumonia, being followed by Dr. Hernandez in the outpatient setting, was noted to have some fever and some change in mental status. Caregivers noted that the patient's sensorium was changed. The patient was more confused. The patient was taken to [facility] and admitted for further evaluation and treatment. Some clots were noted in the urine. UTI was suspected. The patient previously had multi-drug- resistant UTIs with Pseudomonas as well as ESBL E coli. The patient was admitted for further evaluation. Patient is stuporous and dysarthric, unable to give a coherent history. Most of the history is taken from my discussion with staff and review of the chart at this time. PAST MEDICAL HISTORY: History of DVT, history of GERD, hypertension, musculoskeletal disorder, multiple sclerosis, PEG tube feeds, DVTs. HOME MEDICATIONS: Home medications prior to admission include: 1. Guaifenesin 200 mg per PEG tube q.6 p.r.n. 2. Tegretol 300 mg per PEG q.8 p.r.n. 3. Scopolamine patch. 4. Polyethylene glycol 17 grams at bedtime. 5. Ditropan 2.5 mg per PEG. 6. Prilosec 20 mg per PEG. 7. Lopressor 50 mg per PEG. 8. DuoNeb q.i.d. p.r.n. 9. Lasix 20 mg p.o. daily. 10.Colace b.i.d. 11.Vitamin D3, 1000 units daily. 12.Vitamin C 250 mg p.o. daily. 13.Amantadine b.i.d. 14.Tylenol p.r.n. ALLERGIES: MEROPENEM. Family history, social history, review of systems could not be taken because of the patient's dysarthria and stuporous state. PHYSICAL EXAMINATION: Pulse is 94, blood pressure 147/78, respirations 17, temperature 98.1, pulse ox 95% on room air. HEENT: Conjunctivae normal. NECK: No jugular venous distention. CARDIOVASCULAR SYSTEM: S1, S2 muffled. RESPIRATORY SYSTEM: Breath sounds diminished at the bases. A few scattered rhonchi and crackles. Expiratory wheezing. ABDOMEN: Soft. PEG tube in situ. LEGS: No edema. No swelling. NERVOUS SYSTEM: Higher functions as mentioned earlier. Otherwise, unable to cooperate with the exam. Diffuse tremors. Abnormal movements. Diffuse wasting and weakness also present. Contractures also present. SKIN: No ulcer, rash, bleeding. JOINTS: No active deforming arthropathy. LABS: WBC 14.2, hemoglobin 13.4. Sodium 133. UA shows possible UTI. ASSESSMENT: 1. Possible acute urinary tract infection with sepsis, present on admission. 2. Change in mental status, acute on chronic, secondary to sepsis. 3. Increased white count secondary to sepsis. 4. Hyponatremia. 5. Multiple sclerosis with contractures and weakness. 6. Gait dysfunction secondary to multiple sclerosis. 7. History of deep venous thrombosis. 8. Gastroesophageal reflux disease. 9. Hypertension. 10.History of degenerative joint disease. 11.History of pneumonia. 12.History of renal disease. 13.On PEG tube feeds. 14.Neurogenic bladder, on Stein catheter. 15.History of extended-spectrum beta-lactamase, methicillin-resistant Staphylococcus aeruginosa. 16.History of depression. 17.Gait dysfunction. 18.Remote history of nicotine dependence. 19.FULL CODE. RECOMMENDATIONS AND DISCUSSION: In this 59-year-old gentleman who presented with multiple complex medical issues, we will monitor the patient closely. Empiric antibiotics. Follow the cultures. I would also recommend infectious disease evaluation because of previous history of multi-drug- resistant organisms, including resistant Pseudomonas and ESBL E coli. Otherwise, continue the rest of the medications. PEG tube feeds will be resumed carefully. Aspiration precautions. Repeat labs are recommended. Influenza negative. Prognosis guarded because of multiple complex medical issues. Further recommendations to follow. MMODL / IJN: [id number] /
[2019-12-16] MEDS: OXYBUTYNIN CHLORIDE 5 MG TAB PEG/G-TUBE SCH ×2 (16:50→23:14)
[2019-12-16] MEDS: AMANTADINE HCL 100 MG/10 ML CUP PEG/G-TUBE SCH (16:50)
[2019-12-16] MEDS: BACLOFEN 10 MG TAB PEG/G-TUBE SCH ×2 (16:50→23:14)
[2019-12-16] MEDS: METOPROLOL TARTRATE 50 MG TAB PEG/G-TUBE SCH (21:16)
[2019-12-16] MEDS: HEPARIN SODIUM,PORCINE 5,000 UNIT/ML 1 ML VIAL SQ SCH (21:16)
[2019-12-16] MEDS: POLYETHYLENE GLYCOL 3350 17 GM POWD.PACK PEG/G-TUBE SCH (21:16)
[2019-12-16] MEDS: DOCUSATE ORAL SOLN 100 MG/10 ML CUP PEG/G-TUBE SCH (21:32)
--- NOTE | 2019-12-17 00:08 | P.CONS ---
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 it is not clear when the catheter was changed last on arrival to the ER patient had did have low-grade fever of 99.1 patient did have white count of 14.1 UA was done which was positive with large leukocyte esterases and many bacteria patient has received a dose of cefoxitin in the ER subsequently patient has been continued on vancomycin admit to the hospital infectious was consulted for further recommendation of antibiotic patient is currently breathing comfortably on room air and does not seem to be any distress chest x-ray with mild atelectasis in lower lungs most information has been obtained from review the chart.nursing staff with the patient currently nonverbal and unable to provide any history. Review of Systems Positive point has been mentioned in HPI complete review could not be obtained because of underlying mental status Past Medical History Past Medical History: Deep Vein Thrombosis (DVT), GERD/Reflux, Hypertension, Musculoskeletal Disorder, Pneumonia, Renal Disease Additional Past Medical History / Comment(s): MS, cognitive impariment/ non verbal, NPO-peg tube,DVT-arm , IDC ,INCONT OF BOWEL. DYSARTHRIA/ANARTHRIA/DYSPHAGIA. BEDBOUND, RACHLE LIFT TO W/C, neurogenic bladder,m History of Any Multi-Drug Resistant Organisms: ESBL, MRSA Year Discovered:: 09/13/19-MRSA; 11/23/19 ESBL-E.coli MDRO Source:: Broch lavage-Mrsa; Urine -ESBL Additional Past Surgical History / Comment(s): PEG TUBE, HX OF GASTROSTOMY, Past Anesthesia/Blood Transfusion Reactions: Unable to Obtain Past Psychological History: Depression Additional Psychological History / Comment(s): PT RESIDES AT [facility] [phone] Smoking Status: Former smoker Past Alcohol Use History: None Reported Past Drug Use History: None Reported - Past Family History Father Family Medical History: Unable to Obtain Additional Family Medical History / Comment(s): patient is nonverbal Mother Family Medical History: Unable to Obtain Additional Family Medical History / Comment(s): patient is nonverbal Medications and Allergies Home Medications Medication Instructions Recorded Confirmed Type Amantadine 50mg/5ml 100 mg PEG/G-TUBE Q12H 12/28/17 12/16/19 History Ascorbic Acid [Vitamin C] 250 mg PEG/G-TUBE DAILY 12/28/17 12/16/19 History Cholecalciferol [Vitamin D3 (25 1,000 unit PEG/G-TUBE DAILY 12/28/17 12/16/19 Hi story Mcg = 1000 Iu)] Docusate Oral Soln [Colace Oral 200 mg PEG/G-TUBE BID 12/28/17 12/16/19 History Soln] Scopolamine 1.5MG/72Hr Patch 1 patch TRANSDERM Q72H 12/28/17 12/16/19 History [TransDerm Scop] guaiFENesin [guaiFENesin Oral 200 mg PEG/G-TUBE Q6H PRN 12/28/17 12/16/19 Hi story Solution] Furosemide [Lasix] 20 mg PEG/G-TUBE DAILY 05/24/18 12/16/19 History Acetaminophen Oral Susp [Tylenol] 320 mg PEG/G-TUBE Q6H PRN 01/26/19 12/16/19 History Omeprazole Magnesium [PriLOSEC 20 mg PEG/G-TUBE DAILY 01/26/19 12/16/19 History Oral Susp] carBAMazepine [carBAMazepine Oral 300 mg PEG/G-TUBE Q8H 04/15/19 12/16/19 History Susp] Cranberry Fruit Extract [Cranberry] 500 mg PEG/G-TUBE Q12H 06/03/19 12/16/19 History Metoprolol Tartrate [Lopressor] 50 mg PEG/G-TUBE BID 07/29/19 12/16/19 History Oxybutynin Chloride [Ditropan Oral 5 mg PEG/G-TUBE TID 09/08/19 12/16/19 History Soln] Polyethylene Glycol 3350 [Miralax] 17 gm PEG/G-TUBE HS 09/08/19 12/16/19 History Baclofen 5 mg PEG/G-TUBE TID 12/16/19 12/16/19 History Ipratropium-Albuterol Nebulize 3 ml INHALATION RT-QID PRN 12/16/19 12/16/19 History [Duoneb 0.5 mg-3 mg/3 ml Soln] Allergies Allergy/AdvReac Type Severity Reaction Status Date / Time meropenem [From Merrem] Allergy Rash/Hives Verified 12/16/19 10:38 Physical Exam Vitals: Vital Signs Temp Pulse Pulse Resp BP BP Pulse Ox 12/16/19 21:08 98.2 F 96 16 139/85 97 12/16/19 14:17 98.1 F 94 17 147/78 95 12/16/19 04:58 98 F 96 16 125/82 94 L 12/16/19 02:33 98 F 103 H 18 139/65 95 12/16/19 02:07 101 H 20 128/86 95 Intake and Output 12/16/19 12/16/19 12/17/19 14:59 22:59 06:59 Intake Total 100 80 Balance 100 80 Intake: Tube Feeding 100 80 Other: Voiding Method Indwelling Catheter Indwelling Catheter Indwelling Catheter Weight 68.039 kg GENERAL DESCRIPTION: Middle-aged male lying in bed, no distress. No tachypnea or accessory muscle of respiration use. HEENT: Shows Pallor , no scleral icterus. Oral mucous membrane is dry. NECK: Trachea central, no thyromegaly. LUNGS: Unlabored breathing. Decreased breath sound at the base no wheeze or crackle. HEART: S1, S2, regular rate and rhythm. ABDOMEN: Soft, no tenderness , guarding or rigidity EXTREMITIES: No edema of feet. SKIN: No rash, no masses palpable. NEUROLOGICAL: The patient is awake, alert, however orientation could not be determined as patient is nonverbal Results CBC & Chem 7: 12/16/19 00:08 12/16/19 00:08 Labs: Abnormal Lab Results - Last 24 Hours (Table) 12/16/19 12/16/19 12/16/19 Range/Units 00:08 00:08 00:08 WBC 14.1 H (3.8-10.6) k/uL RDW 15.8 H (11.5-15.5) % Neutrophils # 11.8 H (1.3-7.7) k/uL APTT 30.3 H (22.0-30.0) sec Sodium 133 L (137-145) mmol/L BUN 28 H (9-20) mg/dL Glucose 101 H (74-99) mg/dL Albumin 3.2 L (3.5-5.0) g/dL Urine Protein (Negative) Urine Blood (Negative) Ur Leukocyte Esterase (Negative) Urine WBC (0-5) /hpf Urine WBC Clumps (None) /hpf Urine Bacteria (None) /hpf Urine Mucus (None) /hpf Urine Yeast (Budding) (None) /hpf 12/16/19 12/16/19 Range/Units 00:30 02:09 WBC (3.8-10.6) k/uL RDW (11.5-15.5) % Neutrophils # (1.3-7.7) k/uL APTT (22.0-30.0) sec Sodium (137-145) mmol/L BUN (9-20) mg/dL Glucose (74-99) mg/dL Albumin (3.5-5.0) g/dL Urine Protein Trace H Trace H (Negative) Urine Blood Trace H Small H (Negative) Ur Leukocyte Esterase Large H Large H (Negative) Urine WBC 130 H 70 H (0-5) /hpf Urine WBC Clumps Many H (None) /hpf Urine Bacteria Moderate H (None) /hpf Urine Mucus Rare H Rare H (None) /hpf Urine Yeast (Budding) Few H (None) /hpf Microbiology - Last 24 Hours (Table) 12/16/19 00:30 Urine Culture - Preliminary Urine,Clean Catch Assessment and Plan Assessment: 1-patient had presented to the hospital with low-grade fever and urinary symptoms of blood in his Aggarwal catheter in this patient who did have a chronic indwelling Aggarwal catheter for urine retention and history of recurrent UTIs last urine culture has been ESBL E. coli will need to cover for this pathogen while waiting for the culture to finalize 2-patient with questionable allergy to meropenem however he has tolerated Invanz without any problem (1) Allergy to anti-infective agent Current Visit: Yes Status: Acute Code(s): Z88.3 - ALLERGY STATUS TO OTHER ANTI-INFECTIVE AGENTS STATUS SNOMED Code(s): 276445169 (2) UTI (urinary tract infection) Current Visit: Yes Status: Acute Code(s): N39.0 - URINARY TRACT INFECTION, SITE NOT SPECIFIED SNOMED Code(s): 27203317 Plan: 1-Aggarwal catheter has been changed repeat UA has been ordered 2-discontinue the vancomycin 3-We will add Invanz 1 g daily 4-gentle IV fluid We will follow on clinical condition and cultures to further adjust medication if needed Thank you for this consultation we will follow the patient along with you Time with Patient: Greater than 30
[2019-12-17] MEDS: SODIUM CHLORIDE 0.9% 1,000 ML IV SCH (02:34)
[2019-12-17] MEDS: AMANTADINE HCL 100 MG/10 ML CUP PEG/G-TUBE SCH ×2 (03:29→17:51)
[2019-12-17 08:04] LABS: Basophils % (A) 0 %; Eosinophils # (A) 0.7 k/uL (0-0.7); Eosinophils % (A) 7 %; HCT 35.5 % (39.0-53.0); HGB 11.5 gm/dL (13.0-17.5); Lymphocytes % (A) 10 %; MCH 28.4 pg (25.0-35.0); MCHC 32.4 g/dL (31.0-37.0); MCV 87.7 fL (80.0-100.0); Mean Platelet Volume 8.9; Monocytes # (A) 0.5 k/uL (0-1.0); Monocytes % (A) 5 %; Neutrophils # (A) 7.7 k/uL (1.3-7.7); Neutrophils % (A) 77 %; Platelet Count 235 k/uL (150-450); RBC 4.05 m/uL (4.30-5.90); RDW 15.4 % (11.5-15.5); WBC 10.1 k/uL (3.8-10.6)
[2019-12-17 08:12] LABS: African American GFR (CKD) >90 (>60 ml/min/1.73 sqM); Anion Gap 8 mmol/L; Blood Urea Nitrogen 15 mg/dL (9-20); Calcium 8.6 mg/dL (8.4-10.2); Carbon Dioxide 19 mmol/L (22-30); Chloride 115 mmol/L (98-107); Glucose 98 mg/dL (74-99); Non-African American GFR(CKD) >90 (>60 ml/min/1.73 sqM); Potassium 3.6 mmol/L (3.5-5.1); Sodium 142 mmol/L (137-145)
[2019-12-17] MEDS ORDERED: OMEPRAZOLE MAGNESIUM 20 MG PEG/G-TUBE SCH (09:00)
[2019-12-17] MEDS: ERTAPENEM 1 GM in SODIUM CHLORIDE 0.9% 50 ML IVPB SCH (10:03)
[2019-12-17] MEDS: BACLOFEN 10 MG TAB PEG/G-TUBE SCH ×3 (10:06→21:51)
[2019-12-17] MEDS: FUROSEMIDE 20 MG TAB PEG/G-TUBE SCH (10:06)
[2019-12-17] MEDS: METOPROLOL TARTRATE 50 MG TAB PEG/G-TUBE SCH ×2 (10:06→21:51)
[2019-12-17] MEDS: PANTOPRAZOLE 40 MG TABLET PO SCH (10:07)
[2019-12-17] MEDS: CHOLECALCIFEROL 1,000 UNIT TAB PEG/G-TUBE SCH (10:07)
[2019-12-17] MEDS: ASCORBIC ACID 500 MG TAB PEG/G-TUBE SCH (10:07)
[2019-12-17] MEDS: DOCUSATE ORAL SOLN 100 MG/10 ML CUP PEG/G-TUBE SCH ×2 (10:08→20:12)
[2019-12-17] MEDS: OXYBUTYNIN CHLORIDE 5 MG TAB PEG/G-TUBE SCH ×3 (10:09→21:51)
[2019-12-17] MEDS: SCOPOLAMINE 1.5MG/72HR PATCH TRANSDERM SCH (10:09)
[2019-12-17] MEDS: HEPARIN SODIUM,PORCINE 5,000 UNIT/ML 1 ML VIAL SQ SCH ×2 (10:09→21:51)
[2019-12-17 11:48] VITALS: RESP 16
--- NOTE | 2019-12-17 12:42 | P.PN ---
Subjective This is a pleasant 59 years old male with multiple medical problems presents with altered mental status secondary to UTI, this morning patient was lying comfortable in bed, he is awake and has good irritation is patent however he follows only simple commands and his verbal only with 1 or 2 words, he does not look in pain. He is been followed closely by ID team was started on Invanz for history of ESBL UTI, Stein catheter has been changed Objective - Vital Signs Vital signs: Vital Signs Temp 98.5 F 12/17/19 11:47 Pulse 80 12/17/19 11:47 Resp 16 12/17/19 11:47 BP 144/90 12/17/19 11:47 Pulse Ox 98 12/17/19 11:47 Intake & Output 12/16/19 12/17/19 12/17/19 18:59 06:59 18:59 Intake Total 20 280 240 Output Total 1600 1600 Balance 20 -1320 -1360 Weight 68.039 kg 70.5 kg Intake: Tube Feeding 20 280 240 Output: Urine 1600 1600 Uretheral (Stein) 1600 1600 Other: Voiding Method Indwelling Catheter Indwelling Catheter Indwelling Catheter - Exam -GENERAL: The patient is dysarthric and testicle medication difficulties HEENT: Pupils are round and equally reacting to light. EOMI. No scleral icterus. No conjunctival pallor. Normocephalic, atraumatic. No pharyngeal erythema. No thyromegaly. CARDIOVASCULAR: S1 and S2 present. No murmurs, rubs, or gallops. PULMONARY: Chest is clear to auscultation, no wheezing or crackles. ABDOMEN: Soft, nontender, nondistended, normoactive bowel sounds. No palpable organomegaly. MUSCULOSKELETAL: No joint swelling or deformity. EXTREMITIES: No cyanosis, clubbing, or pedal edema. NEUROLOGICAL: Gross neurological examination did not reveal any focal deficits. SKIN: No rashes. no petechiae. - Labs CBC & Chem 7: 12/17/19 07:07 12/17/19 07:07 Labs: Abnormal Lab Results - Last 24 Hours (Table) 12/17/19 12/17/19 Range/Units 07:07 07:07 RBC 4.05 L (4.30-5.90) m/uL Hgb 11.5 L (13.0-17.5) gm/dL Hct 35.5 L (39.0-53.0) % Chloride 115 H (98-107) mmol/L Carbon Dioxide 19 L (22-30) mmol/L Microbiology - Last 24 Hours (Table) 12/16/19 00:30 Blood Culture - Preliminary Blood No Growth after 24 hours 12/16/19 00:30 Urine Culture - Preliminary Urine,Clean Catch Assessment and Plan Assessment: Acute complicated urinary tract infection Metabolic encephalopathy secondary to above History of DVT History of GERD Hypertension multiple sclerosis 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 Continue with antibiotics as per infectious disease, follow-up vitals and labs. Labs and medication were reviewed.. Continue same treatment. Continue with symptomatic treatment. Resume home medication. Monitor lytes and vitals. DVT and GI prophylaxis. Further recommendations of the clinical course of the patient DVT prophylaxis: Subcutaneous heparin GI Prophylaxis: Ppi Prognosis is guarded
[2019-12-17] MEDS: ACETAMINOPHEN ORAL SUSP (PEDS) 3,840 MG/120 ML BOTTLE PEG/G-TUBE PRN (17:49)
[2019-12-17] MEDS: POLYETHYLENE GLYCOL 3350 17 GM POWD.PACK PEG/G-TUBE SCH (20:06)
[2019-12-17] MEDS: HYDROcodone/APAP 5-325MG 1 EACH TAB PO PRN (21:51)
--- NOTE | 2019-12-17 22:08 | PN ---
PROGRESS NOTE DATE OF SERVICE: 12/17/2019 REASON FOR FOLLOWUP: Urinary tract infection. INTERVAL HISTORY: The patient is currently afebrile, has been breathing comfortably on room air. No vomiting has been reported or any diarrhea. The patient is still unable to provide any history. PHYSICAL EXAMINATION: Blood pressure 144/90 with a pulse of 80, temperature 98.5. He is 98% on room air. General description is a middle-aged male lying in bed in no distress. RESPIRATORY SYSTEM: Unlabored breathing with decreased breath sounds at the base. No wheeze. HEART: S1, S2. Regular rate and rhythm. ABDOMEN: Soft. No tenderness. LABS: Hemoglobin 11.5, white count 10.1. BUN of 15, creatinine 0.72. Urine with Gram- negative bacilli. Blood culture has been negative. DIAGNOSTIC IMPRESSION AND PLAN: Patient admitted to hospital with a fever and vomiting, likely related to symptomatic urinary tract infection in this patient who did have a history of ESBL Escherichia coli urinary tract infection. Patient is currently covered with Invanz, and that will be continued while waiting for the culture to finalize. Continue with supportive care. MMODL / IJN: [id number] /
[2019-12-18] MEDS: AMANTADINE HCL 100 MG/10 ML CUP PEG/G-TUBE SCH ×2 (04:39→15:39)
[2019-12-18] MEDS: SODIUM CHLORIDE 0.9% 1,000 ML IV SCH (04:39)
[2019-12-18 07:51] LABS: African American GFR (CKD) >90 (>60 ml/min/1.73 sqM); Anion Gap 6 mmol/L; Blood Urea Nitrogen 16 mg/dL (9-20); Calcium 8.2 mg/dL (8.4-10.2); Carbon Dioxide 21 mmol/L (22-30); Chloride 115 mmol/L (98-107); Glucose 116 mg/dL (74-99); Non-African American GFR(CKD) >90 (>60 ml/min/1.73 sqM); Potassium 3.7 mmol/L (3.5-5.1); Sodium 142 mmol/L (137-145)
[2019-12-18 08:08] LABS: Basophils % (A) 0 %; Eosinophils # (A) 0.5 k/uL (0-0.7); Eosinophils % (A) 7 %; HGB 11.2 gm/dL (13.0-17.5); Lymphocytes # (A) 0.8 k/uL (1.0-4.8); Lymphocytes % (A) 10 %; MCH 27.9 pg (25.0-35.0); MCV 87.2 fL (80.0-100.0); Mean Platelet Volume 8.8; Monocytes # (A) 0.4 k/uL (0-1.0); Monocytes % (A) 6 %; Neutrophils # (A) 5.7 k/uL (1.3-7.7); Neutrophils % (A) 76 %; Platelet Count 265 k/uL (150-450); RBC 4.01 m/uL (4.30-5.90); WBC 7.5 k/uL (3.8-10.6)
[2019-12-18] MEDS: METOPROLOL TARTRATE 50 MG TAB PEG/G-TUBE SCH ×2 (08:27→21:15)
[2019-12-18] MEDS: OXYBUTYNIN CHLORIDE 5 MG TAB PEG/G-TUBE SCH ×3 (08:27→21:15)
[2019-12-18] MEDS: ASCORBIC ACID 500 MG TAB PEG/G-TUBE SCH (08:27)
[2019-12-18] MEDS: FUROSEMIDE 20 MG TAB PEG/G-TUBE SCH (08:27)
[2019-12-18] MEDS: CHOLECALCIFEROL 1,000 UNIT TAB PEG/G-TUBE SCH (08:28)
[2019-12-18] MEDS: PANTOPRAZOLE 40 MG TABLET PO SCH (08:28)
[2019-12-18] MEDS: ERTAPENEM 1 GM in SODIUM CHLORIDE 0.9% 50 ML IVPB SCH (08:28)
[2019-12-18] MEDS: BACLOFEN 10 MG TAB PEG/G-TUBE SCH ×3 (08:28→21:15)
[2019-12-18] MEDS: DOCUSATE ORAL SOLN 100 MG/10 ML CUP PEG/G-TUBE SCH ×2 (08:29→19:13)
[2019-12-18] MEDS: HEPARIN SODIUM,PORCINE 5,000 UNIT/ML 1 ML VIAL SQ SCH ×2 (08:29→21:14)
[2019-12-18 11:12] VITALS: BMI 22.9
[2019-12-18] MEDS: CEFEPIME 2 GM in SODIUM CHLORIDE 0.9% 100 ML IVPB SCH (15:39)
--- NOTE | 2019-12-18 17:41 | PN ---
PROGRESS NOTE DATE OF SERVICE: 12/18/2019 REASON FOR FOLLOWUP: Pseudomonas and Providencia urinary tract infection. INTERVAL HISTORY: The patient is currently afebrile. The patient has been breathing comfortably. Hemodynamically stable. No nausea, vomiting or any diarrhea has been reported. PHYSICAL EXAMINATION: Blood pressure 132/82 with a pulse of 84, temperature 99.6. He is 98% on room air. General description is a middle-aged male lying in bed in no distress. RESPIRATORY SYSTEM: Unlabored breathing. Clear to auscultation anteriorly. HEART: S1, S2. Regular rate and rhythm. ABDOMEN: Soft. No tenderness. LABS: Hemoglobin is 11.2, white count 7.5. BUN of 16, creatinine 0.67. Urine has been Providencia and pseudomonas. DIAGNOSTIC IMPRESSION AND PLAN: Patient with a pseudomonas and Providencia urinary tract infection. Antibiotic will be switched over to cefepime 2 grams q.12 hours. He will get a midline and continue with current antibiotic for about a week with close outpatient followup. MMODL / IJN: [id number] /
--- NOTE | 2019-12-18 17:50 | XR ---
EXAMINATION TYPE: XR chest 1V portable DATE OF EXAM: 12/18/2019 COMPARISON: 12/16/2019 HISTORY: Fever. Possible aspiration. TECHNIQUE: Upright portable view FINDINGS: there is some linear infiltrate and atelectasis in both lower lung prater. There is no heart failure . There is slight elevation of the right diaphragm. There is no pleural effusion. IMPRESSION: Mild basilar infiltrates and atelectasis slightly worse than last exam. No heart failure.
[2019-12-18] MEDS: POLYETHYLENE GLYCOL 3350 17 GM POWD.PACK PEG/G-TUBE SCH (19:13)
[2019-12-18] MEDS: HYDROcodone/APAP 5-325MG 1 EACH TAB PO PRN (21:15)
[2019-12-18] MEDS ORDERED: FUROSEMIDE 10 MG/ML 2 ML VIAL IV ONE (21:50)
[2019-12-19] MEDS: CEFEPIME 2 GM in SODIUM CHLORIDE 0.9% 100 ML IVPB SCH ×2 (03:17→14:32)
[2019-12-19] MEDS: AMANTADINE HCL 100 MG/10 ML CUP PEG/G-TUBE SCH ×2 (03:18→14:33)
[2019-12-19] MEDS: SODIUM CHLORIDE 0.9% 1,000 ML IV SCH (03:18)
[2019-12-19] MEDS: ACETAMINOPHEN ORAL SUSP (PEDS) 3,840 MG/120 ML BOTTLE PEG/G-TUBE PRN (05:23)
[2019-12-19 08:12] LABS: Basophils % (A) 0 %; Eosinophils # (A) 0.5 k/uL (0-0.7); Eosinophils % (A) 7 %; HCT 35.4 % (39.0-53.0); Lymphocytes % (A) 14 %; MCH 27.4 pg (25.0-35.0); MCHC 31.1 g/dL (31.0-37.0); MCV 88.1 fL (80.0-100.0); Mean Platelet Volume 8.3; Monocytes # (A) 0.5 k/uL (0-1.0); Monocytes % (A) 7 %; Neutrophils # (A) 4.9 k/uL (1.3-7.7); Neutrophils % (A) 69 %; Platelet Count 303 k/uL (150-450); RBC 4.02 m/uL (4.30-5.90); RDW 15.2 % (11.5-15.5); WBC 7.1 k/uL (3.8-10.6)
[2019-12-19 08:26] LABS: African American GFR (CKD) >90 (>60 ml/min/1.73 sqM); Anion Gap 8 mmol/L; Blood Urea Nitrogen 21 mg/dL (9-20); Calcium 8.4 mg/dL (8.4-10.2); Carbon Dioxide 21 mmol/L (22-30); Chloride 115 mmol/L (98-107); Glucose 122 mg/dL (74-99); Non-African American GFR(CKD) >90 (>60 ml/min/1.73 sqM); Potassium 3.5 mmol/L (3.5-5.1); Sodium 144 mmol/L (137-145)
[2019-12-19 09:23] LABS: Glucose,Whole Blood 111 mg/dL (75-99)
[2019-12-19] MEDS: PANTOPRAZOLE 40 MG TABLET PO SCH (09:36)
[2019-12-19] MEDS: ASCORBIC ACID 500 MG TAB PEG/G-TUBE SCH (09:37)
[2019-12-19] MEDS: BACLOFEN 10 MG TAB PEG/G-TUBE SCH ×3 (09:37→21:06)
[2019-12-19] MEDS: CHOLECALCIFEROL 1,000 UNIT TAB PEG/G-TUBE SCH (09:38)
[2019-12-19] MEDS: DOCUSATE ORAL SOLN 100 MG/10 ML CUP PEG/G-TUBE SCH ×2 (09:38→21:04)
[2019-12-19] MEDS: FUROSEMIDE 20 MG TAB PEG/G-TUBE SCH (09:38)
[2019-12-19] MEDS: HEPARIN SODIUM,PORCINE 5,000 UNIT/ML 1 ML VIAL SQ SCH ×2 (09:39→21:06)
[2019-12-19] MEDS: METOPROLOL TARTRATE 50 MG TAB PEG/G-TUBE SCH ×2 (09:39→21:06)
[2019-12-19] MEDS: OXYBUTYNIN CHLORIDE 5 MG TAB PEG/G-TUBE SCH ×3 (09:40→21:06)
--- NOTE | 2019-12-19 09:59 | XR ---
EXAMINATION TYPE: XR chest 1V DATE OF EXAM: 12/19/2019 COMPARISON: 12/18/2019 HISTORY: Follow-up for shortness of breath TECHNIQUE: Single frontal view of the chest is obtained. FINDINGS: Left midlung bandlike atelectasis has progressed from the prior. Bibasilar airspace diseas e otherwise has improved. Diffuse osseous demineralization is seen. Cardiomediastinal silhouette is r otated given patient positioning but overall stable. Low lung volumes overall. IMPRESSION: Bandlike left midlung atelectasis has worsened however the bibasilar opacity seen on the prior has improved.
--- NOTE | 2019-12-19 09:59 | P.PN ---
Subjective This is a pleasant 59 years old male with multiple medical problems presents with altered mental status secondary to UTI, this morning patient was lying comfortable in bed, he is awake and has good irritation is patent however he follows only simple commands and his verbal only with 1 or 2 words, he does not look in pain. He is been followed closely by ID team was started on Invanz for history of ESBL UTI, Stein catheter has been changed 12/18/2019 Patient is doing well clinically, his urine culture came back positive for pseudomonas and procidentia, anybody, changed to cefepime as per infectious disease team. There was suspicion of some pulmonary secretions so chest x-ray was obtained showing most likely atelectasis with no heart failure. We'll keep on strength and possible discharge in 24-48 hours Objective - Vital Signs Vital signs: Vital Signs Temp 99.6 F 12/18/19 11:53 Pulse 84 12/18/19 11:53 Resp 16 12/18/19 11:53 BP 132/82 12/18/19 11:53 Pulse Ox 98 12/18/19 11:53 Intake & Output 12/17/19 12/18/19 12/18/19 18:59 06:59 18:59 Intake Total 360 720 680 Output Total 4700 500 Balance -4340 220 680 Weight 70.5 kg 70.5 kg Intake: Intake, IV Titration 160 Amount Sodium Chloride 0.9% 1, 160 000 ml @ 20 mls/hr IV . Q24H [facility] Rx#:[id number] Tube Feeding 360 560 680 Output: Urine 4700 500 Uretheral (Stein) 4100 Other: Voiding Method Indwelling Catheter Indwelling Catheter Indwelling Catheter # Bowel Movements 4 - Exam -GENERAL: The patient is dysarthric and testicle medication difficulties HEENT: Pupils are round and equally reacting to light. EOMI. No scleral icterus. No conjunctival pallor. Normocephalic, atraumatic. No pharyngeal erythema. No thyromegaly. CARDIOVASCULAR: S1 and S2 present. No murmurs, rubs, or gallops. PULMONARY: Chest is clear to auscultation, no wheezing or crackles. ABDOMEN: Soft, nontender, nondistended, normoactive bowel sounds. No palpable organomegaly. MUSCULOSKELETAL: No joint swelling or deformity. EXTREMITIES: No cyanosis, clubbing, or pedal edema. NEUROLOGICAL: Gross neurological examination did not reveal any focal deficits. SKIN: No rashes. no petechiae. - Labs CBC & Chem 7: 12/19/19 07:16 12/19/19 07:16 Labs: Abnormal Lab Results - Last 24 Hours (Table) 12/18/19 12/18/19 Range/Units 07:16 07:16 RBC 4.01 L (4.30-5.90) m/uL Hgb 11.2 L (13.0-17.5) gm/dL Hct 35.0 L (39.0-53.0) % Lymphocytes # 0.8 L (1.0-4.8) k/uL Chloride 115 H (98-107) mmol/L Carbon Dioxide 21 L (22-30) mmol/L Glucose 116 H (74-99) mg/dL Calcium 8.2 L (8.4-10.2) mg/dL Microbiology - Last 24 Hours (Table) 12/16/19 00:30 Urine Culture - Final Urine,Clean Catch Pseudomonas aeruginosa Providencia stuartii 12/16/19 00:30 Blood Culture - Preliminary Blood No Growth after 48 hours Assessment and Plan Assessment: Acute complicated urinary tract infection Metabolic encephalopathy secondary to above History of DVT History of GERD Hypertension multiple sclerosis 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 Continue with an tibiotics as per infectious disease, follow-up vitals and labs. Labs and medication were reviewed.. Continue same treatment. Continue with symptomatic treatment. Resume home medication. Monitor lytes and vitals. DVT and GI prophylaxis. Further recommendations of the clinical course of the sandra ent DVT prophylaxis: Subcutaneous heparin GI Prophylaxis: Ppi Prognosis is guarded
--- NOTE | 2019-12-19 14:21 | P.PN ---
Subjective This is a pleasant 59 years old male with multiple medical problems presents with altered mental status secondary to UTI, this morning patient was lying comfortable in bed, he is awake and has good irritation is patent however he follows only simple commands and his verbal only with 1 or 2 words, he does not look in pain. He is been followed closely by ID team was started on Invanz for history of ESBL UTI, Stein catheter has been changed 12/18/2019 Patient is doing well clinically, his urine culture came back positive for pseudomonas and procidentia, anybody, changed to cefepime as per infectious disease team. There was suspicion of some pulmonary secretions so chest x-ray was obtained showing most likely atelectasis with no heart failure. We'll keep on strength and possible discharge in 24-48 hours 12/19/2019 Patient today is doing well, his breathing quietly and he is saturating 95 on room air, his breathing at 16-18 breaths per minute, and his lung examination shows is improving, we will repeat chest x-ray. Patient had a fever today of 100.4, discussed the case with IV team would prefer to keep monitor him for now Objective - Vital Signs Vital signs: Vital Signs Temp 97.2 F L 12/19/19 12:41 Pulse 84 12/19/19 12:41 Resp 16 12/19/19 12:41 BP 153/97 12/19/19 12:41 Pulse Ox 96 12/19/19 12:41 Intake & Output 12/18/19 12/19/19 12/19/19 18:59 06:59 18:59 Intake Total 680 980 Output Total 1000 Balance 680 -20 Weight 70.5 kg 68.5 kg Intake: Intake, IV Titration 260 Amount Cefepime 2 gm In Sodium 100 Chloride 0.9% 100 ml @ 200 mls/hr IVPB Q12H [facility] Rx#:[id number] Sodium Chloride 0.9% 1, 160 000 ml @ 20 mls/hr IV . Q24H [facility] Rx#:[id number] Tube Feeding 680 720 Output: Urine 1000 Other: Voiding Method Indwelling Catheter Indwelling Catheter - Exam -GENERAL: The patient is dysarthric and testicle medication difficulties HEENT: Pupils are round and equally reacting to light. EOMI. No scleral icterus. No conjunctival pallor. Normocephalic, atraumatic. No pharyngeal erythema. No thyromegaly. CARDIOVASCULAR: S1 and S2 present. No murmurs, rubs, or gallops. PULMONARY: Chest is clear to auscultation, no wheezing or crackles. ABDOMEN: Soft, nontender, nondistended, normoactive bowel sounds. No palpable organomegaly. MUSCULOSKELETAL: No joint swelling or deformity. EXTREMITIES: No cyanosis, clubbing, or pedal edema. NEUROLOGICAL: Gross neurological examination did not reveal any focal deficits. SKIN: No rashes. no petechiae. - Labs CBC & Chem 7: 12/19/19 07:16 12/19/19 07:16 Labs: Abnormal Lab Results - Last 24 Hours (Table) 12/19/19 12/19/19 12/19/19 Range/Units 07:16 07:16 09:22 RBC 4.02 L (4.30-5.90) m/uL Hgb 11.0 L (13.0-17.5) gm/dL Hct 35.4 L (39.0-53.0) % Chloride 115 H (98-107) mmol/L Carbon Dioxide 21 L (22-30) mmol/L BUN 21 H (9-20) mg/dL Glucose 122 H (74-99) mg/dL POC Glucose (mg/dL) 111 H (75-99) mg/dL Microbiology - Last 24 Hours (Table) 12/16/19 00:30 Blood Culture - Preliminary Blood No Growth after 72 hours Assessment and Plan Assessment: Acute complicated urinary tract infection Metabolic encephalopathy secondary to above History of DVT History of GERD Hypertension multiple sclerosis 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 Continue with antibiotics as per infectious disease, follow-up vitals and labs. Labs and medication were reviewed.. Continue same treatment. Continue with symptomatic treatment. Resume home medication. Monitor lytes and vitals. DVT and GI prophylaxis. Further recommendations of the clinical course of the patient DVT prophylaxis: Subcutaneous heparin GI Prophylaxis: Ppi Prognosis is guarded
[2019-12-19] MEDS: metroNIDAZOLE 500 MG TAB PO SCH ×2 (14:38→21:06)
[2019-12-19 15:06] LABS: Appearance,Urine Clear (Clear); Bacteria,Urine Rare /hpf; Bilirubin,Urine Negative (Negative); Blood,Urine Negative (Negative); Color,Urine Yellow; Glucose,Urine (UA) Negative (Negative); Hyaline Casts,Urine 3 /lpf (0-2); Ketones,Urine Negative (Negative); Leukocyte Esterase,Urine Trace (Negative); Mucus,Urine Occasional /hpf; Nitrite,Urine Negative (Negative); Protein,Urine 1+ (Negative); RBC,Urine 1 /hpf (0-5); Specific Gravity,Urine 1.019 (1.001-1.035); Urobilinogen,Urine <2.0 mg/dL (<2.0); WBC,Urine 4 /hpf (0-5)
--- NOTE | 2019-12-19 20:59 | PN ---
PROGRESS NOTE DATE OF SERVICE: 12/19/2019 REASON FOR FOLLOWUP: 1. Urinary tract infection. 2. Pneumonia. INTERVAL HISTORY: The patient did spike a low fever of 100.5 last night/early this morning. The patient is currently breathing comfortably on room air. No vomiting has been reported or any diarrhea. The patient still unable to provide any history. PHYSICAL EXAMINATION: Blood pressure 153/97, pulse 84, temperature 97.2. He is 97% on room air. General description is a middle-aged male lying in bed in no distress. Respiratory system: Unlabored breathing. Clear to auscultation anteriorly. Heart S1, S2. Regular rate and rhythm. Abdomen soft, no tenderness. LABS: Hemoglobin is 11, white count 7.1. BUN of 21, creatinine 0.71. DIAGNOSTIC IMPRESSION AND PLAN: Patient admitted to the hospital with fever. Concern underlying for urinary tract infection in this patient Pseudomonas. Patient clinically responded to Invanz, however, did have a fever after he was switched over to Cefepime. X-ray slight worsening with question of possible aspiration pneumonitis. We will add Flagyl. Repeat chest x-ray tomorrow and hold discharge for at least 24 hours. If the fever resolves, the patient will be continued on Cefepime and Flagyl. The patient will continue therapy. If further fever, further workup will be done. MMODL / IJN: [id number] /
[2019-12-19] MEDS: POLYETHYLENE GLYCOL 3350 17 GM POWD.PACK PEG/G-TUBE SCH (21:04)
[2019-12-20] MEDS: SODIUM CHLORIDE 0.9% 1,000 ML IV SCH (00:32)
[2019-12-20] MEDS: AMANTADINE HCL 100 MG/10 ML CUP PEG/G-TUBE SCH ×2 (02:08→18:20)
[2019-12-20] MEDS: CEFEPIME 2 GM in SODIUM CHLORIDE 0.9% 100 ML IVPB SCH ×2 (02:08→15:54)
[2019-12-20 07:38] LABS: Basophils % (A) 0 %; Eosinophils # (A) 0.5 k/uL (0-0.7); Eosinophils % (A) 8 %; HCT 36.3 % (39.0-53.0); HGB 11.4 gm/dL (13.0-17.5); Hypochromasia Slight; Lymphocytes # (A) 1.1 k/uL (1.0-4.8); Lymphocytes % (A) 19 %; MCH 27.7 pg (25.0-35.0); MCHC 31.5 g/dL (31.0-37.0); MCV 87.9 fL (80.0-100.0); Monocytes # (A) 0.4 k/uL (0-1.0); Monocytes % (A) 6 %; Neutrophils # (A) 3.8 k/uL (1.3-7.7); Neutrophils % (A) 63 %; Platelet Count 360 k/uL (150-450); RBC 4.13 m/uL (4.30-5.90); RDW 15.1 % (11.5-15.5)
[2019-12-20 07:51] LABS: African American GFR (CKD) >90 (>60 ml/min/1.73 sqM); Anion Gap 7 mmol/L; Blood Urea Nitrogen 22 mg/dL (9-20); Calcium 8.5 mg/dL (8.4-10.2); Carbon Dioxide 22 mmol/L (22-30); Chloride 115 mmol/L (98-107); Glucose 114 mg/dL (74-99); Non-African American GFR(CKD) >90 (>60 ml/min/1.73 sqM); Potassium 3.6 mmol/L (3.5-5.1); Sodium 144 mmol/L (137-145)
[2019-12-20] MEDS: ASCORBIC ACID 500 MG TAB PEG/G-TUBE SCH (09:21)
[2019-12-20] MEDS: SCOPOLAMINE 1.5MG/72HR PATCH TRANSDERM SCH (09:22)
[2019-12-20] MEDS: CHOLECALCIFEROL 1,000 UNIT TAB PEG/G-TUBE SCH (09:22)
[2019-12-20] MEDS: BACLOFEN 10 MG TAB PEG/G-TUBE SCH ×2 (09:22→18:20)
[2019-12-20] MEDS: OXYBUTYNIN CHLORIDE 5 MG TAB PEG/G-TUBE SCH ×2 (09:22→18:20)
[2019-12-20] MEDS: FUROSEMIDE 20 MG TAB PEG/G-TUBE SCH (09:22)
[2019-12-20] MEDS: PANTOPRAZOLE 40 MG TABLET PO SCH (09:22)
[2019-12-20] MEDS: metroNIDAZOLE 500 MG TAB PO SCH ×2 (09:22→18:20)
[2019-12-20] MEDS: METOPROLOL TARTRATE 50 MG TAB PEG/G-TUBE SCH (09:22)
[2019-12-20] MEDS: HEPARIN SODIUM,PORCINE 5,000 UNIT/ML 1 ML VIAL SQ SCH (09:23)
[2019-12-20] MEDS: DOCUSATE ORAL SOLN 100 MG/10 ML CUP PEG/G-TUBE SCH (09:23)
--- NOTE | 2019-12-20 12:58 | XR ---
EXAMINATION TYPE: XR chest 1V portable DATE OF EXAM: 12/20/2019 HISTORY: R/O aspiration pneumonia. REFERENCE: Previous study dated 12/19/2019. FINDINGS: Atelectatic changes in both lungs have improved. There is some minimal linear density in th e left midlung. Lungs otherwise clear. Pleural space are clear. The heart is not enlarged. IMPRESSION: MINIMAL RESIDUAL ATELECTASIS, LEFT MIDLUNG.
[2019-12-20 13:00] VITALS: BP 136/86; PULSE 75; TEMP 98.2
--- NOTE | 2019-12-20 15:56 | P.DS ---
Providers Date of admission: 12/18/19 14:28 Attending physician: Dara Crowe Consults: 12/16/19 00:56 Consult Physician Routine Consulting Provider: Sonal Farah Consult Reason/Comments: uti w hx of esbl Do you want consulting provider notified?: Yes Primary care physician: Matteo Hernandez [facility] Course: Diagnoses: Acute complicated urinary tract infection secondary to pseudomonas and procidentia Stuartii, related to Stein catheter present on admission possible some elements of aspiration pneumonitis, so flagyl was added Metabolic encephalopathy secondary to above, improved Atelectasis, versus aspiration pneumonitis History of DVT History of GERD Hypertension multiple sclerosis 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 Patient is back to his basic mental status. No other new complaints. Stein catheter was change. Patient will be discharged on antibiotics as per ID team recommendation to cefepime however since patient developed fever yesterday with possible aspiration, Flagyl has been added and he has no fever since then. patient already got a midline. Patient breathing is stable, no dyspnea, he is saturating 95-97 on room air, and his breathing quietly at 16 breath per minute, encourage incentive spirometry of this is possible 2 days ago developed some fever ,mostly aspiration , flagyl added, no more fever Patient is cleared for discharge by ID team Patient was found stable and can be discharged home however he needs follow-up as an outpatient. Patient was instructed to follow up with PCP within one week and patient agrees pt will be dc on 10 days of cefepime and flagyl as per id recommendation Gen: patient is a awake and alert, no distress CVS: S1-S2, RRR, no murmur Lungs: B/L CTA, no wheezing -Abdomen: soft, no distention, no tenderness, positive bowel sounds. Stein catheter is in place Extremity: no leg edema or induration Time spent more than 35 minutes Patient Condition at Discharge: Fair Plan - Discharge Summary New Discharge Prescriptions: New HYDROcodone/APAP 5-325MG [[place] 5-325] 1 each PO Q12HR PRN #2 tab PRN Reason: Pain metroNIDAZOLE [Flagyl] 500 mg PO TID 10 Days #30 tab Cefepime HCl [Maxipime] 2 gm IV Q12H 10 Days #20 vial Continue Cholecalciferol [Vitamin D3 (25 Mcg = 1000 Iu)] 1,000 unit PEG/G-TUBE DAILY Docusate Oral Soln [Colace Oral Soln] 200 mg PEG/G-TUBE BID Amantadine 50mg/5ml 100 mg PEG/G-TUBE Q12H Ascorbic Acid [Vitamin C] 250 mg PEG/G-TUBE DAILY guaiFENesin [guaiFENesin Oral Solution] 200 mg PEG/G-TUBE Q6H PRN PRN Reason: Cough Scopolamine 1.5MG/72Hr Patch [TransDerm Scop] 1 patch TRANSDERM Q72H Furosemide [Lasix] 20 mg PEG/G-TUBE DAILY Acetaminophen Oral Susp [Tylenol] 320 mg PEG/G-TUBE Q6H PRN PRN Reason: Fever And/ Or Pain Omeprazole Magnesium [PriLOSEC Oral Susp] 20 mg PEG/G-TUBE DAILY carBAMazepine [carBAMazepine Oral Susp] 300 mg PEG/G-TUBE Q8H Cranberry Fruit Extract [Cranberry] 500 mg PEG/G-TUBE Q12H Metoprolol Tartrate [Lopressor] 50 mg PEG/G-TUBE BID Polyethylene Glycol 3350 [Miralax] 17 gm PEG/G-TUBE HS Oxybutynin Chloride [Ditropan Oral Soln] 5 mg PEG/G-TUBE TID Baclofen 5 mg PEG/G-TUBE TID Ipratropium-Albuterol Nebulize [Duoneb 0.5 mg-3 mg/3 ml Soln] 3 ml INHALATION RT-QID PRN PRN Reason: Shortness Of Breath Discharge Medication List Amantadine 50mg/5ml 100 mg PEG/G-TUBE Q12H 12/28/17 [History] Ascorbic Acid [Vitamin C] 250 mg PEG/G-TUBE DAILY 12/28/17 [History] Cholecalciferol [Vitamin D3 (25 Mcg = 1000 Iu)] 1,000 unit PEG/G-TUBE DAILY 12/28/17 [History] Docusate Oral Soln [Colace Oral Soln] 200 mg PEG/G-TUBE BID 12/28/17 [History] Scopolamine 1.5MG/72Hr Patch [TransDerm Scop] 1 patch TRANSDERM Q72H 12/28/17 [History] guaiFENesin [guaiFENesin Oral Solution] 200 mg PEG/G-TUBE Q6H PRN 12/28/17 [History] Furosemide [Lasix] 20 mg PEG/G-TUBE DAILY 05/24/18 [History] Acetaminophen Oral Susp [Tylenol] 320 mg PEG/G-TUBE Q6H PRN 01/26/19 [History] Omeprazole Magnesium [PriLOSEC Oral Susp] 20 mg PEG/G-TUBE DAILY 01/26/19 [History] carBAMazepine [carBAMazepine Oral Susp] 300 mg PEG/G-TUBE Q8H 04/15/19 [History] Cranberry Fruit Extract [Cranberry] 500 mg PEG/G-TUBE Q12H 06/03/19 [History] Metoprolol Tartrate [Lopressor] 50 mg PEG/G-TUBE BID 07/29/19 [History] Oxybutynin Chloride [Ditropan Oral Soln] 5 mg PEG/G-TUBE TID 09/08/19 [History] Polyethylene Glycol 3350 [Miralax] 17 gm PEG/G-TUBE HS 09/08/19 [History] Baclofen 5 mg PEG/G-TUBE TID 12/16/19 [History] Ipratropium-Albuterol Nebulize [Duoneb 0.5 mg-3 mg/3 ml Soln] 3 ml INHALATION RT-QID PRN 12/16/19 [History] HYDROcodone/APAP 5-325MG [[place] 5-325] 1 each PO Q12HR PRN #2 tab 12/18/19 [Rx] Cefepime HCl [Maxipime] 2 gm IV Q12H 10 Days #20 vial 12/20/19 [Rx] metroNIDAZOLE [Flagyl] 500 mg PO TID 10 Days #30 tab 12/20/19 [Rx] Follow up Appointment(s)/Referral(s): Matteo Hernandez MD [Primary Care Provider] - 1-2 days Activity/Diet/Wound Care/Special Instructions: discontinue mid-line after finishing the IV antibiotics in 10 days Discharge Disposition: TRANSFER TO SNF/ECF
--- NOTE | 2019-12-20 17:39 | PN ---
PROGRESS NOTE DATE OF SERVICE: 12/20/2019 REASON FOR FOLLOWUP: Possible aspiration pneumonia and UTI. INTERVAL HISTORY: The patient is currently afebrile. Patient has been breathing comfortably on room air. Sating 97.7. Has been tolerating his tube feeds. No vomiting has been reported or any diarrhea. The patient still unable to provide any history. PHYSICAL EXAMINATION: Blood pressure 136/86, pulse of 75. Temperature 98.2. He is 97% on room air. General description is a middle aged male lying in bed in no distress. Respiratory system: Unlabored breathing. Clear to auscultation anteriorly. Heart S1, S2. Regular rate and rhythm. Abdomen soft, no tenderness. LABS: Hemoglobin 11.4, white count 6, BUN 22, creatinine 0.63. DIAGNOSTIC IMPRESSION AND PLAN: Patient with fever concerning for urinary tract infection. Urine had been Providencia and Pseudomonas, now with pneumonitis. X-ray this morning did not show any worsening. There was some improvement. The patient's fever has resolved. We will keep the patient on cefepime 2 g q.12h and oral Flagyl 500 q8 for ten days with close outpatient followup. Plan of care discussed with the admitting physician. MMODL / IJN: [id number] /
--- NOTE | 2019-12-24 09:11 | CDI ---
Documentation Clarification Form Date: 12/24/2019 08:56:12 AM From: Shanda Chase Phone: If you have a question about this query, please contact Deb Bergeron, Paper Inspector at [phone] between 8am and 5pm. Admit Date: 12/18/2019 02:28:00 PM Patient Name: Chris Marvin Visit Number: [id number] Discharge Date: 12/20/2019 09:41:00 PM ATTENTION: The Clinical Documentation Specialists (CDI) and [facility] Coding Staff appreciate your assistance in clarifying documentation. Please respond to the clarification below the line at the bottom and electronically sign. The CDI & [facility] Coding staff will review the response and follow-up if needed. Please note: Queries are made part of the Legal Health Record. If you have any questions, please contact the author of this message via ITS. Dr. Gramajo E Sheet Per H and P " Possible UTI with sepsis POA. Change in MS, ac/chr secondary to sepsis. Increased WBC secondary to sepsis. Sepsis is not carried through chart. Please clarify if patient had sepsis or was this ruled out. History/Risk Factors: CAUTI pseudomona and procidentia. Stein cath history of UTI's WBC 14.1 Lactic acid: 1.2 Vitals signs on admission: 99.1 F, 105 bpm, 20, 112/69, 96% RA Treatment: Cefepime Flagyl Midline catheter ID Consult: CAUTI In your professional opinion, please clarify if these findings signify one of the following conditions, whether the condition is POA, and cause, if known: Condition Sepsis ruled out SIRS, without underlying infectious process Sepsis Severe Sepsis Septic Shock Other, please specify Unable to determine SIRS Criteria (2 or more of the following may indicate SIRS): -Temperature < 96.8F (36C) or > 101.0F (38.3C) -Heart Rate > 90 bpm -Respiratory Rate > 20 breaths/min or PaCO2 < 32 mmHg -White Blood Cell Count > 12,000 or < 4,000 cells/mm3 or > 10% bands -Lactate >2.0 mmol/L No sepsis MTDD
== END 2019-12-20 21:41 | DRG 698 ==
LOC: EC 23:33 → 5NMEDONC 12-16 01:03 → OBSVTOIN 12-18 14:28
PROVIDERS: ADMIT Hospitalist; ATTEND Hospitalist
PROC: 05HF33Z Insertion of Infusion Device into Left Cephalic Vein, Percutaneous Approach (ICD-10-PCS; principal; 2019-12-18 08:25)
PROC: 3E0G76Z Introduction of Nutritional Substance into Upper GI, Via Natural or Artificial Opening (ICD-10-PCS; 2019-12-18 08:25)
DX: T83.518A Infection and inflammatory reaction due to other urinary catheter, initial encounter (principal); G93.41 Metabolic encephalopathy; J69.0 Pneumonitis due to inhalation of food and vomit; N39.0 Urinary tract infection, site not specified; E87.1 Hypo-osmolality and hyponatremia; E86.0 Dehydration; G35 Multiple sclerosis; I10 Essential (primary) hypertension; K21.9 Gastro-esophageal reflux disease without esophagitis; M19.90 Unspecified osteoarthritis, unspecified site; N31.9 Neuromuscular dysfunction of bladder, unspecified; Z79.899 Other long term (current) drug therapy; Z86.19 Personal history of other infectious and parasitic diseases; Z86.718 Personal history of other venous thrombosis and embolism; Z87.01 Personal history of pneumonia (recurrent); Z87.440 Personal history of urinary (tract) infections; Z87.891 Personal history of nicotine dependence; Z88.3 Allergy status to other anti-infective agents; Z93.1 Gastrostomy status; Z74.01 Bed confinement status; Z86.14 Personal history of Methicillin resistant Staphylococcus aureus infection; R26.9 Unspecified abnormalities of gait and mobility; B96.5 Pseudomonas (aeruginosa) (mallei) (pseudomallei) as the cause of diseases classified elsewhere
CPT/HCPCS: 36410; 36415; 71045; 76937; 80048; 80053; 81001; 83605; 84145; 85025; 85610; 85730; 86140; 87040; 87077; 87086; 87186; 87502; 93005; 96365; 99285

== ENCOUNTER 2019-12-20 21:43 | Observation (INO) | payer MEDICARE, OTHER ==
[2019-12-20] MEDS ORDERED: NALOXONE 0.4 MG/ML 1 ML VIAL IV PRN (21:50)
[2019-12-20] MEDS ORDERED: ACETAMINOPHEN ORAL SUSP 160 MG/5 ML CUP PEG/G-TUBE PRN (21:56)
[2019-12-20] MEDS ORDERED: HYDROcodone/APAP 5-325MG 1 EACH TAB PO PRN (21:56)
[2019-12-20] MEDS ORDERED: IPRATROPIUM-ALBUTEROL 3 ML NEB INHALATION PRN (21:56)
[2019-12-20] MEDS ORDERED: NON FORMULARY DRUG (Cefepime Hcl [Maxipime] 2 GM) IV SCH (22:00)
[2019-12-20] MEDS ORDERED: SCOPOLAMINE 1.5MG/72HR PATCH TRANSDERM SCH (22:00)
[2019-12-20] MEDS ORDERED: NON FORMULARY DRUG (Cranberry Fruit Extract [Cranberry] 500 MG) PEG/G-TUBE SCH (22:00)
--- NOTE | 2019-12-20 22:08 | ED ---
General Adult HPI - General Chief complaint: Recheck/Abnormal Lab/Rx Stated complaint: sob Time Seen by Provider: 12/20/19 21:50 Source: EMS Mode of arrival: EMS Limitations: language barrier, altered mental status, physical limitation - History of Present Illness Initial comments: Chris a very pleasant 59-year-old male well known to the hospital for his frequent admissions. Patient is extremely get a history including MS chronic infections. Patient was recently admitted to our hospital for pneumonia, he was discharged just hours ago and taken back to snf where upon arrival he was noted to still have a cough, due to current concerns about her rotavirus the fact that the patient has not tested negative they refused to accept him at his snf where he resides and therefore he was brought back to the hospital. At this time I cannot force the snf to accept the patient therefore we will readmit to the hospital pending an alternate disposition. - Related Data Home Medications Medication Instructions Recorded Confirmed Amantadine 50mg/5ml 100 mg PEG/G-TUBE Q12H 12/28/17 12/16/19 Ascorbic Acid [Vitamin C] 250 mg PEG/G-TUBE DAILY 12/28/17 12/16/19 Cholecalciferol [Vitamin D3 (25 1,000 unit PEG/G-TUBE DAILY 12/28/17 12/16/19 Mcg = 1000 Iu)] Docusate Oral Soln [Colace Oral 200 mg PEG/G-TUBE BID 12/28/17 12/16/19 Soln] Scopolamine 1.5MG/72Hr Patch 1 patch TRANSDERM Q72H 12/28/17 12/16/19 [TransDerm Scop] guaiFENesin [guaiFENesin Oral 200 mg PEG/G-TUBE Q6H PRN 12/28/17 12/16/19 Solution] Furosemide [Lasix] 20 mg PEG/G-TUBE DAILY 05/24/18 12/16/19 Acetaminophen Oral Susp [Tylenol] 320 mg PEG/G-TUBE Q6H PRN 01/26/19 12/16/19 Omeprazole Magnesium [PriLOSEC 20 mg PEG/G-TUBE DAILY 01/26/19 12/16/19 Oral Susp] carBAMazepine [carBAMazepine Oral 300 mg PEG/G-TUBE Q8H 04/15/19 12/16/19 Susp] Cranberry Fruit Extract [Cranberry] 500 mg PEG/G-TUBE Q12H 06/03/19 12/16/19 Metoprolol Tartrate [Lopressor] 50 mg PEG/G-TUBE BID 07/29/19 12/16/19 Oxybutynin Chloride [Ditropan Oral 5 mg PEG/G-TUBE TID 09/08/19 12/16/19 Soln] Polyethylene Glycol 3350 [Miralax] 17 gm PEG/G-TUBE HS 09/08/19 12/16/19 Baclofen 5 mg PEG/G-TUBE TID 12/16/19 12/16/19 Ipratropium-Albuterol Nebulize 3 ml INHALATION RT-QID PRN 12/16/19 12/16/19 [Duoneb 0.5 mg-3 mg/3 ml Soln] Previous Rx's Medication Instructions Recorded HYDROcodone/APAP 5-325MG [[place] 1 each PO Q12HR PRN #2 tab 12/18/19 5-325] Cefepime HCl [Maxipime] 2 gm IV Q12H 10 Days #20 vial 12/20/19 metroNIDAZOLE [Flagyl] 500 mg PO TID 10 Days #30 tab 12/20/19 Allergies Allergy/AdvReac Type Severity Reaction Status Date / Time meropenem [From Merrem] Allergy Rash/Hives Verified 12/16/19 10:38 Review of Systems ROS Statement: Those systems with pertinent positive or pertinent negative responses have been documented in the HPI. ROS Other: All systems not noted in ROS Statement are negative. Past Medical History Past Medical History: Deep Vein Thrombosis (DVT), GERD/Reflux, Hypertension, Musculoskeletal Disorder, Pneumonia, Renal Disease Additional Past Medical History / Comment(s): MS, cognitive impariment/ non verbal, NPO-peg tube,DVT-arm , IDC ,INCONT OF BOWEL. DYSARTHRIA/ANARTHRIA/DYSPHAGIA. BEDBOUND, RACHEL LIFT TO W/C, neurogenic bladder,m History of Any Multi-Drug Resistant Organisms: ESBL, MRSA Date of last positivie culture/infection: 09/13/19-MRSA; 11/23/19 ESBL-E.coli MDRO Source:: Broch lavage-Mrsa; Urine -ESBL Additional Past Surgical History / Comment(s): PEG TUBE, HX OF GASTROSTOMY, Past Anesthesia/Blood Transfusion Reactions: Unable to Obtain Past Psychological History: Depression Smoking Status: Former smoker Past Alcohol Use History: None Reported Past Drug Use History: None Reported - Past Family History Father Family Medical History: Unable to Obtain Additional Family Medical History / Comment(s): patient is nonverbal Mother Family Medical History: Unable to Obtain Additional Family Medical History / Comment(s): patient is nonverbal General Exam - General Exam Comments Initial Comments: Physical Exam GENERAL: Medically ill appearing, bedbound and debilitated HENT: Normocephalic, Atraumatic. 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 PULMONARY: Crackles at bases, deep cough CARDIOVASCULAR: RRR Warm and well perfused extremities ABDOMEN: Non-distended PEG tube in place SKIN: No rashes or bruising : Deferred NEUROLOGIC: Minimally verbal, moans Gives thumbs up MUSCULOSKELETAL: Contracted PSYCHIATRIC: Unable to assess Limitations: language barrier, altered mental status, physical limitation Course Vital Signs 12/20/19 21:52 Temperature 98.2 F Pulse Rate 81 Respiratory 16 Rate Blood Pressure 141/99 O2 Sat by Pulse 98 Oximetry Medical Decision Making - Medical Decision Making Patient was seen and evaluated patient will be admitted pending a more permanent disposition Disposition Clinical Impression: Cough Disposition: ADMITTED IP TO THIS [facility] Condition: Stable Is patient prescribed a controlled substance at d/c from ED?: No
[2019-12-20] MEDS: CEFEPIME 2 GM in SODIUM CHLORIDE 0.9% 100 ML IVPB SCH (22:31)
[2019-12-20] MEDS: BACLOFEN 10 MG TAB PEG/G-TUBE SCH (23:33)
[2019-12-20] MEDS: AMANTADINE HCL 100 MG/10 ML CUP PEG/G-TUBE SCH (23:33)
[2019-12-20] MEDS: OXYBUTYNIN CHLORIDE 5 MG TAB PEG/G-TUBE SCH (23:34)
[2019-12-20] MEDS: metroNIDAZOLE 500 MG TAB PEG/G-TUBE SCH (23:34)
--- NOTE | 2019-12-21 08:22 | XR ---
EXAMINATION TYPE: XR chest 1V DATE OF EXAM: 12/21/2019 HISTORY: suspected coughing. REFERENCE: Previous study dated 12/20/2019. FINDINGS: The study is moderately rotated. There continues to be some atelectasis in the left midlung . There is mild vascular congestion and subtle interstitial change. IMPRESSION: 1. MINIMAL PLATELIKE ATELECTASIS LEFT MIDLUNG. 2. DEVELOPING CHANGES OF CONGESTIVE HEART FAILURE.
[2019-12-21 09:03] LABS: African American GFR (CKD) >90 (>60 ml/min/1.73 sqM); Anion Gap 6 mmol/L; Blood Urea Nitrogen 21 mg/dL (9-20); Carbon Dioxide 24 mmol/L (22-30); Chloride 114 mmol/L (98-107); Glucose 94 mg/dL (74-99); Non-African American GFR(CKD) >90 (>60 ml/min/1.73 sqM); Potassium 3.7 mmol/L (3.5-5.1); Sodium 144 mmol/L (137-145)
--- NOTE | 2019-12-21 09:10 | P.HPIM ---
History of Present Illness This is a pleasant 59 years old male with multiple medical problems presents with altered mental status secondary to UTI, has been discharged yesterday to his halfway after his been evaluated and treated for acute completed UTI and aspiration pneumonitis, he was discharged on cefepime and Flagyl for 10 days. However the nursing staff refused to take the patient because he was coughing and staff were concerned about covid-19 as per records. And he was sent back to the emergency room last night and he got admitted. I discussed the case with the ED attending and they thought he is at baseline, when I saw the patient this morning also they looked at his baseline, he was lying comfortable in bed, no shortness of breath, follow simple commands, no coughing is noted, no tachypnea. However patient could have some occasional cough in view of his history of aspiration pneumonia Patient Ame looks stable he had fever on 12/19/2019 at 100.4, and since then his fever has been subsided after adding Flagyl, which goes more with bacterial infection rather than viral infection, also chest x-ray was showing improvement with her treatment with Flagyl which goes more also with bacterial infection rather than viral. However we going to repeat labs and chest x-ray Review of Systems N/a Past Medical History Past Medical History: Deep Vein Thrombosis (DVT), GERD/Reflux, Hypertension, Musculoskeletal Disorder, Pneumonia, Renal Disease Additional Past Medical History / Comment(s): MS, cognitive impariment/ non verbal, NPO-peg tube,DVT-arm , IDC ,INCONT OF BOWEL. DYSARTHRIA/ANARTHRIA/DYSPHAGIA. BEDBOUND, RACHEL LIFT TO W/C, neurogenic bladder,m History of Any Multi-Drug Resistant Organisms: ESBL, MRSA Date of last positivie culture/infection: 09/13/19-MRSA; 11/23/19 ESBL-E.coli MDRO Source:: Broch lavage-Mrsa; Urine -ESBL Additional Past Surgical History / Comment(s): PEG TUBE, HX OF GASTROSTOMY, Past Anesthesia/Blood Transfusion Reactions: Unable to Obtain Past Psychological History: Depression Smoking Status: Former smoker Past Alcohol Use History: None Reported Past Drug Use History: None Reported - Past Family History Father Family Medical History: Unable to Obtain Additional Family Medical History / Comment(s): patient is nonverbal Mother Family Medical History: Unable to Obtain Additional Family Medical History / Comment(s): patient is nonverbal Medications and Allergies Home Medications Medication Instructions Recorded Confirmed Type Amantadine 50mg/5ml 100 mg PEG/G-TUBE Q12H 12/28/17 12/16/19 History Ascorbic Acid [Vitamin C] 250 mg PEG/G-TUBE DAILY 12/28/17 12/16/19 History Cholecalciferol [Vitamin D3 (25 1,000 unit PEG/G-TUBE DAILY 12/28/17 12/16/19 History Mcg = 1000 Iu)] Docusate Oral Soln [Colace Oral 200 mg PEG/G-TUBE BID 12/28/17 12/16/19 History Soln] Scopolamine 1.5MG/72Hr Patch 1 patch TRANSDERM Q72H 12/28/17 12/16/19 History [TransDerm Scop] guaiFENesin [guaiFENesin Oral 200 mg PEG/G-TUBE Q6H PRN 12/28/17 12/16/19 History Solution] Furosemide [Lasix] 20 mg PEG/G-TUBE DAILY 05/24/18 12/16/19 History Acetaminophen Oral Susp [Tylenol] 320 mg PEG/G-TUBE Q6H PRN 01/26/19 12/16/19 History Omeprazole Magnesium [PriLOSEC 20 mg PEG/G-TUBE DAILY 01/26/19 12/16/19 History Oral Susp] carBAMazepine [carBAMazepine Oral 300 mg PEG/G-TUBE Q8H 04/15/19 12/16/19 History Susp] Cranberry Fruit Extract [Cranberry] 500 mg PEG/G-TUBE Q12H 06/03/19 12/16/19 History Metoprolol Tartrate [Lopressor] 50 mg PEG/G-TUBE BID 07/29/19 12/16/19 History Oxybutynin Chloride [Ditropan Oral 5 mg PEG/G-TUBE TID 09/08/19 12/16/19 History Soln] Polyethylene Glycol 3350 [Miralax] 17 gm PEG/G-TUBE HS 09/08/19 12/16/19 History Baclofen 5 mg PEG/G-TUBE TID 12/16/19 12/16/19 History Ipratropium-Albuterol Nebulize 3 ml INHALATION RT-QID PRN 12/16/19 12/16/19 History [Duoneb 0.5 mg-3 mg/3 ml Soln] HYDROcodone/APAP 5-325MG [[place] 1 each PO Q12HR PRN #2 tab 12/18/19 Rx 5-325] Cefepime HCl [Maxipime] 2 gm IV Q12H 10 Days #20 vial 12/20/19 Rx metroNIDAZOLE [Flagyl] 500 mg PO TID 10 Days #30 tab 12/20/19 Rx Allergies Allergy/AdvReac Type Severity Reaction Status Date / Time meropenem [From Merrem] Allergy Rash/Hives Verified 12/16/19 10:38 Physical Exam Vitals: Vital Signs Temp Pulse Pulse Resp BP BP Pulse Ox 12/21/19 05:00 97.8 F 79 16 146/88 97 12/20/19 23:00 98.7 F 85 18 158/84 97 12/20/19 21:52 98.2 F 81 16 141/99 98 Intake and Output 12/20/19 12/21/19 12/21/19 22:59 06:59 14:59 Intake Total 100 Output Total 400 Balance -300 Intake: Intake, IV Titration 100 Amount Cefepime 2 gm In Sodium 100 Chloride 0.9% 100 ml @ 200 mls/hr IVPB Q12H [facility] Rx#:[id number] Output: Urine 400 Uretheral (Stein) 400 Other: Voiding Method Indwelling Catheter Weight 75.75 kg 75.75 kg -GENERAL: The patient is awake, follows simple commands however due he does not answer back clearly HEENT: Pupils are round and equally reacting to light. EOMI. No scleral icterus. No conjunctival pallor. Normocephalic, atraumatic. No pharyngeal erythema. No thyromegaly. CARDIOVASCULAR: S1 and S2 present. No murmurs, rubs, or gallops. PULMONARY: Chest is clear to auscultation, no wheezing or crackles. ABDOMEN: Soft, nontender, nondistended, normoactive bowel sounds. No palpable organomegaly. MUSCULOSKELETAL: No joint swelling or deformity. EXTREMITIES: No cyanosis, clubbing, or pedal edema. NEUROLOGICAL: Gross neurological examination did not reveal any focal deficits. SKIN: No rashes. no petechiae. Thrombosis Risk Factor Assmnt - Choose All That Apply Any of the Below Risk Factors Present?: Yes Each Factor Represents 1 point: Age 41-60 years, Medical pt on bed rest Other Risk Factors: Yes Each Risk Factor Represents 2 Points: Patient confined to bed Thrombosis Risk Factor Assessment Total Risk Factor Score: 4 Thrombosis Risk Factor Assessment Level: Moderate Risk Assessment and Plan Assessment: Recent history of Acute complicated urinary tract infection secondary to pseudomonas and procidentia Stuartii, related to Stein catheter present on admission possible some elements of aspiration pneumonitis, so flagyl was added Metabolic encephalopathy secondary to above, improved Atelectasis, versus aspiration pneumonitis History of DVT History of GERD Hypertension multiple sclerosis 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 Continue with antibiotics as per infectious disease recommendation, most likely patient has bacterial infection secondary to UTI and aspiration pneumonitis rather than viral infection, however we're going to check routine labs with CBC and BMP and chest x-ray. We'll reconsult infectious disease as he is known to the service . 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 Continue same treatment. Continue with symptomatic treatment. Resume home medication. Monitor lytes and vitals. DVT and GI prophylaxis. Further recommendations of the clinical course of the patient DVT prophylaxis: Subcutaneous heparin GI Prophylaxis: Ppi Prognosis is guarded
[2019-12-21 09:20] LABS: HCT 37.6 % (39.0-53.0); HGB 12.3 gm/dL (13.0-17.5); Hypochromasia Slight; MCH 29.1 pg (25.0-35.0); MCHC 32.7 g/dL (31.0-37.0); Mean Platelet Volume 7.7; Platelet Count 381 k/uL (150-450); RBC 4.22 m/uL (4.30-5.90); RDW 15.1 % (11.5-15.5)
[2019-12-21] MEDS ORDERED: FUROSEMIDE 10 MG/ML 4 ML VIAL IV STA (09:33)
[2019-12-21] MEDS: FUROSEMIDE 20 MG TAB PEG/G-TUBE SCH (09:34)
[2019-12-21 09:42] LABS: Eosinophils # (M) 0.36 k/uL (0-0.7); Lymphocytes # (M) 1.32 k/uL (1.0-4.8); Monocytes # (M) 0.36 k/uL (0-1.0); Neutrophils # (M) 3.96 k/uL (1.3-7.7); Neutrophils % (M) 66 %; Nucleated Red Blood Cells 0 /100 WBC (0-0); Total Cells Counted 100
[2019-12-21 09:53] VITALS: BMI 24.6
[2019-12-21] MEDS: CHOLECALCIFEROL 1,000 UNIT TAB PEG/G-TUBE SCH (09:53)
[2019-12-21] MEDS: metroNIDAZOLE 500 MG TAB PEG/G-TUBE SCH ×3 (09:53→21:56)
[2019-12-21] MEDS: ASCORBIC ACID 500 MG TAB PEG/G-TUBE SCH (09:53)
[2019-12-21] MEDS: METOPROLOL TARTRATE 50 MG TAB PEG/G-TUBE SCH ×2 (09:54→21:56)
[2019-12-21] MEDS: BACLOFEN 10 MG TAB PEG/G-TUBE SCH ×3 (09:54→21:56)
[2019-12-21] MEDS: DOCUSATE ORAL SOLN 100 MG/10 ML CUP PEG/G-TUBE SCH ×2 (09:56→22:13)
[2019-12-21] MEDS: OXYBUTYNIN CHLORIDE 5 MG TAB PEG/G-TUBE SCH ×3 (09:56→22:13)
[2019-12-21] MEDS: PANTOPRAZOLE SODIUM 40 MG GRANULE PKT PEG/G-TUBE SCH (09:57)
[2019-12-21] MEDS: AMANTADINE HCL 100 MG/10 ML CUP PEG/G-TUBE SCH ×2 (09:59→22:13)
[2019-12-21] MEDS: CEFEPIME 2 GM in SODIUM CHLORIDE 0.9% 100 ML IVPB SCH ×2 (09:59→21:57)
[2019-12-21] MEDS: SODIUM CHLORIDE 0.9% 1,000 ML IV SCH (10:15)
[2019-12-21] MEDS ORDERED: POLYETHYLENE GLYCOL 3350 17 GM POWD.PACK PEG/G-TUBE SCH (21:00)
--- NOTE | 2019-12-21 21:01 | CONS ---
CONSULTATION DATE OF SERVICE: 12/21/2019 REASON FOR CONSULTATION: UTI and question of pneumonia. INTERVAL HISTORY: The patient is a 59 -year-old male with past medical history significant for MSSA in this patient how did have multiple admissions at this facility. He was recently admitted to this facility on 12/02 with urinary tract infection with urine culture positive for Providencia and Pseudomonas aeruginosa. The patient did have a chest x-ray which did show some left midlung atelectasis with concern for possible aspiration pneumonitis as the patient did have some question of vomiting before he was admitted to the hospital. He was treated with cefepime and Flagyl and did have overall improvement. He did get a midline and was discharged to care home to continue with Cefepime and with oral Flagyl for another 10 days. On arrival at the care home, the patient was refused entry to the care home by the staff saying that he did have a cough, and was not tested for Covid-19. Subsequently the patient was sent back to the [facility] ER. On arrival to the ER, the patient did have a chest x-ray which shows minimal platelike atelectatic left lung, developing changes of congestive heart failure. The patient did not have any fever when he was brought back and has remained to be afebrile for the last 24 hours. The patient did have a normal white count, normal lymphocyte count and creatinine. The patient was admitted. He was started on cefepime and Flagyl. Infectious Disease was consulted for further recommendations. Most of the information has been obtained from review of the chart, talking with the nursing staff. The patient himself unable to provide any history. REVIEW OF SYSTEMS: Positive points have been mentioned in HPI. Other systems are negative. PAST MEDICAL HISTORY: Past medical and surgical history reviewed. No change. ALLERGIES: TO MEROPENEM, MEDICATIONS: The patient is on Tylenol, Hodges, DuoNeb, vitamin C, Diclofenac, Baclofen, cefepime, Flagyl, Lopressor, Narcan, Protonix. PHYSICAL EXAMINATION: Blood pressure is 124/83 with a pulse of 69, temperature 98.3. He is 96% room air. General description is a middle-aged male lying in bed in no distress. HEENT: Examination shows no pallor or scleral icterus. Oral mucosa is dry. Lungs unlabored breathing. Decreased breath sounds in the bases. No wheeze. Heart S1, S2. Regular rate and rhythm. Abdomen soft, no tenderness. Extremities are no edema of the feet. Neurological: Patient with . Patient nonverbal. Orientation could not be determined. LABORATORY DATA: Hemoglobin is 12.0, white count 6.0, BUN of 21, creatinine 0.63. Chest report as mentioned above. DIAGNOSTIC IMPRESSION AND PLAN: Patient recently treated for a Pseudomonas urinary tract infection and possible aspiration pneumonitis. The patient did not have any fever and no risk factors for Covid-19 infection. The patient continues to improve, though has been readmitted because of the care home insistence. The patient has been evaluated by the ER physician. He was considered to be not a candidate for Covid-19 testing as so was not done. PLAN: The patient will continue with cefazolin 2 g q.12h and oral Flagyl for another 8 to 10 days to finish a course of therapy. MMODL / ARMANDON: [id number] /
[2019-12-22 00:56] LABS: Glucose,Whole Blood 122 mg/dL (75-99)
[2019-12-22 06:18] LABS: Glucose,Whole Blood 127 mg/dL (75-99)
[2019-12-22 07:41] LABS: Basophils # (A) 0.1 k/uL (0-0.2); Basophils % (A) 1 %; Eosinophils # (A) 0.3 k/uL (0-0.7); Eosinophils % (A) 5 %; HCT 39.4 % (39.0-53.0); HGB 12.2 gm/dL (13.0-17.5); Lymphocytes # (A) 1.5 k/uL (1.0-4.8); Lymphocytes % (A) 20 %; MCH 27.3 pg (25.0-35.0); Mean Platelet Volume 7.7; Monocytes # (A) 0.5 k/uL (0-1.0); Monocytes % (A) 7 %; Neutrophils # (A) 4.6 k/uL (1.3-7.7); Neutrophils % (A) 64 %; Platelet Count 423 k/uL (150-450); RBC 4.48 m/uL (4.30-5.90); RDW 15.6 % (11.5-15.5); WBC 7.2 k/uL (3.8-10.6)
[2019-12-22 07:53] LABS: African American GFR (CKD) >90 (>60 ml/min/1.73 sqM); Anion Gap 7 mmol/L; Blood Urea Nitrogen 28 mg/dL (9-20); Calcium 8.9 mg/dL (8.4-10.2); Carbon Dioxide 23 mmol/L (22-30); Chloride 116 mmol/L (98-107); Glucose 122 mg/dL (74-99); Non-African American GFR(CKD) >90 (>60 ml/min/1.73 sqM); Potassium 4.3 mmol/L (3.5-5.1); Sodium 146 mmol/L (137-145)
--- NOTE | 2019-12-22 07:53 | XR ---
EXAMINATION TYPE: XR chest 1V DATE OF EXAM: 12/22/2019 COMPARISON: 12/21/2019 HISTORY: 59-year-old male follow-up cough TECHNIQUE: Single frontal view of the chest is obtained. FINDINGS: Leftward patient rotation alters the normal cardiomediastinal contours. Heart normal size. Aorta and pulmonary vasculature within normal limits. Mild interstitial prominence seems improved from prior. N o focal consolidation or pleural effusion. Old left-sided rib fracture deformity. IMPRESSION: Rotated exam. Previously seen interstitial prominence appears improved. No definite acute process.
--- NOTE | 2019-12-22 08:51 | P.DS ---
Providers Date of admission: 12/20/19 21:51 Attending physician: Avila Ireland MD Consults: 12/21/19 09:09 Consult Physician Routine Consulting Provider: Sonal Farah Consult Reason/Comments: known to your service Do you want consulting provider notified?: Yes Primary care physician: [facility] Course: Diagnoses: -Sent from his snf for coughing, patient was monitored for 2 days and no significant coughing was noted -Recent history of Acute complicated urinary tract infection secondary to pseudomonas and procidentia Stuartii, related to Stein catheter present on admission possible some elements of aspiration pneumonitis, so flagyl was added -Metabolic encephalopathy secondary to above, improved -Fluid overload and a chest x-ray, improved with 1 dose of Lasix -Mild asymptomatic hypernatremia -Atelectasis, versus aspiration pneumonitis -History of DVT -History of GERD -Hypertension multiple sclerosis -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 However the snf staff refused to take the patient because he was coughing and staff were concerned about covid-19 as per records. And he was sent back to the emergency room and he got admitted. I discussed the case with the ED attending and they thought he is at baseline, when I saw the patient this morning also they looked at his baseline, he was lying comfortable in bed, no shortness of breath, follow simple commands, no coughing is noted, no tachypnea. However patient could have some occasional cough in view of his history of aspiration pneumonia and fluid overload Patient Vitas looks stable he had fever on 12/19/2019 at 100.4, and since then his fever has been subsided after adding Flagyl, which goes more with bacterial infection rather than viral infection, also chest x-ray was showing improvement with her treatment with Flagyl which goes more also with bacterial infection rather than viral. Patient has been evaluated by infectious disease specialist who recommended to continue with the same therapy and testing. Patient has no fever for more than 24 hours since admission, no coughing, no dyspnea, no change in altered mental status, no abdominal complaints. Labs show normal WBC of 6.0 and 7.2K, sodium slightly elevated from 144 up to 146 and his water flushes can be increased from 30 mL every 4 hours up to 40 mL every 4 hours and keep monitoring his sodium. Chest x-ray on admission showed fluid overload he got 1 dose of Lasix and repeat chest x-ray this morning showing improvement with no acute process by the radiologist. We think the suspicion for Covid/viral infection is low to send the patient to the hospital, actually we think keeping the patient in the hospital we'll put him to high risk of ottoniel various kinds of viral and bacterial infections Patient was paid for discharge by infectious disease team Patient was found stable and can be discharged to [facility] guarded prognosis however he needs follow-up as an outpatient. Patient needs to follow up with PCP within one week Also we recommend keep monitoring his sodium and electrolytes every 2-3 days. Also recommend repeat chest x-ray in 1 week and adjust his diuretics as per his doctor Gen: patient is a alert and awake at baseline mental statu, no distress CVS: S1-S2, RRR, no murmur Lungs: B/L CTA, no wheezing Abdomen: soft, no distention, no tenderness, positive bowel sounds. PEG tube is in place Extremity: no leg edema or induration Time spent more than 35 minutes Patient Condition at Discharge: Stable Plan - Discharge Summary New Discharge Prescriptions: No Action Cholecalciferol [Vitamin D3 (25 Mcg = 1000 Iu)] 1,000 unit PEG/G-TUBE DAILY Docusate Oral Soln [Colace Oral Soln] 200 mg PEG/G-TUBE BID Amantadine 50mg/5ml 100 mg PEG/G-TUBE Q12H Ascorbic Acid [Vitamin C] 250 mg PEG/G-TUBE DAILY guaiFENesin [guaiFENesin Oral Solution] 200 mg PEG/G-TUBE Q6H PRN PRN Reason: Cough Scopolamine 1.5MG/72Hr Patch [TransDerm Scop] 1 patch TRANSDERM Q72H Furosemide [Lasix] 20 mg PEG/G-TUBE DAILY Acetaminophen Oral Susp [Tylenol] 320 mg PEG/G-TUBE Q6H PRN PRN Reason: Fever And/ Or Pain Omeprazole Magnesium [PriLOSEC Oral Susp] 20 mg PEG/G-TUBE DAILY carBAMazepine [carBAMazepine Oral Susp] 300 mg PEG/G-TUBE Q8H Cranberry Fruit Extract [Cranberry] 500 mg PEG/G-TUBE Q12H Metoprolol Tartrate [Lopressor] 50 mg PEG/G-TUBE BID Polyethylene Glycol 3350 [Miralax] 17 gm PEG/G-TUBE HS Oxybutynin Chloride [Ditropan Oral Soln] 5 mg PEG/G-TUBE TID Baclofen 5 mg PEG/G-TUBE TID Ipratropium-Albuterol Nebulize [Duoneb 0.5 mg-3 mg/3 ml Soln] 3 ml INHALATION RT-Q6H PRN PRN Reason: Shortness Of Breath HYDROcodone/APAP 5-325MG [[place] 5-325] 1 each PO Q12HR PRN #2 tab PRN Reason: Pain metroNIDAZOLE [Flagyl] 500 mg PO TID 10 Days #30 tab Cefepime HCl [Maxipime] 2 gm IV Q12H 10 Days #20 vial Discharge Medication List Amantadine 50mg/5ml 100 mg PEG/G-TUBE Q12H 12/28/17 [History] Ascorbic Acid [Vitamin C] 250 mg PEG/G-TUBE DAILY 12/28/17 [History] Cholecalciferol [Vitamin D3 (25 Mcg = 1000 Iu)] 1,000 unit PEG/G-TUBE DAILY 12/28/17 [History] Docusate Oral Soln [Colace Oral Soln] 200 mg PEG/G-TUBE BID 12/28/17 [History] Scopolamine 1.5MG/72Hr Patch [TransDerm Scop] 1 patch TRANSDERM Q72H 12/28/17 [History] guaiFENesin [guaiFENesin Oral Solution] 200 mg PEG/G-TUBE Q6H PRN 12/28/17 [History] Furosemide [Lasix] 20 mg PEG/G-TUBE DAILY 05/24/18 [History] Acetaminophen Oral Susp [Tylenol] 320 mg PEG/G-TUBE Q6H PRN 01/26/19 [History] Omeprazole Magnesium [PriLOSEC Oral Susp] 20 mg PEG/G-TUBE DAILY 01/26/19 [History] carBAMazepine [carBAMazepine Oral Susp] 300 mg PEG/G-TUBE Q8H 04/15/19 [History] Cranberry Fruit Extract [Cranberry] 500 mg PEG/G-TUBE Q12H 06/03/19 [History] Metoprolol Tartrate [Lopressor] 50 mg PEG/G-TUBE BID 07/29/19 [History] Oxybutynin Chloride [Ditropan Oral Soln] 5 mg PEG/G-TUBE TID 09/08/19 [History] Polyethylene Glycol 3350 [Miralax] 17 gm PEG/G-TUBE HS 09/08/19 [History] Baclofen 5 mg PEG/G-TUBE TID 12/16/19 [History] Ipratropium-Albuterol Nebulize [Duoneb 0.5 mg-3 mg/3 ml Soln] 3 ml INHALATION RT-Q6H PRN 12/16/19 [History] HYDROcodone/APAP 5-325MG [[place] 5-325] 1 each PO Q12HR PRN #2 tab 12/18/19 [Rx] Cefepime HCl [Maxipime] 2 gm IV Q12H 10 Days #20 vial 12/20/19 [Rx] metroNIDAZOLE [Flagyl] 500 mg PO TID 10 Days #30 tab 12/20/19 [Rx] Follow up Appointment(s)/Referral(s): Matteo Hernandez MD [Primary Care Provider] - 1-2 days
[2019-12-22] MEDS: CHOLECALCIFEROL 1,000 UNIT TAB PEG/G-TUBE SCH (09:28)
[2019-12-22] MEDS: BACLOFEN 10 MG TAB PEG/G-TUBE SCH (09:28)
[2019-12-22] MEDS: METOPROLOL TARTRATE 50 MG TAB PEG/G-TUBE SCH (09:28)
[2019-12-22] MEDS: ASCORBIC ACID 500 MG TAB PEG/G-TUBE SCH (09:28)
[2019-12-22] MEDS: metroNIDAZOLE 500 MG TAB PEG/G-TUBE SCH (09:28)
[2019-12-22] MEDS: CEFEPIME 2 GM in SODIUM CHLORIDE 0.9% 100 ML IVPB SCH (09:29)
[2019-12-22] MEDS: DOCUSATE ORAL SOLN 100 MG/10 ML CUP PEG/G-TUBE SCH (09:32)
[2019-12-22] MEDS: AMANTADINE HCL 100 MG/10 ML CUP PEG/G-TUBE SCH (09:32)
[2019-12-22] MEDS: PANTOPRAZOLE SODIUM 40 MG GRANULE PKT PEG/G-TUBE SCH (09:32)
[2019-12-22] MEDS: OXYBUTYNIN CHLORIDE 5 MG TAB PEG/G-TUBE SCH (09:32)
[2019-12-22] MEDS: FUROSEMIDE 20 MG TAB PEG/G-TUBE SCH (09:32)
[2019-12-22] MEDS: SODIUM CHLORIDE 0.9% 1,000 ML IV SCH (10:27)
[2019-12-22 12:07] LABS: Glucose,Whole Blood 121 mg/dL (75-99)
[2019-12-22 12:40] VITALS: BP 122/86; PULSE 77; RESP 17; TEMP 97.3
--- NOTE | 2019-12-22 16:29 | PN ---
PROGRESS NOTE DATE OF SERVICE: 12/22/2019. REASON FOR FOLLOWUP: UTI and possible aspiration pneumonitis. INTERVAL HISTORY: The patient was seen on rounds this morning. The patient has afebrile. No fever has been recorded during his hospital stay. He has been breathing comfortably on room air. No vomiting or diarrhea has been reported. PHYSICAL EXAMINATION: Blood pressure 122/86, pulse 77, temperature 97.3. He is 93%on room air. General description is a middle-aged male lying in bed in no distress. RESPIRATORY SYSTEM: Unlabored breathing with decreased breath sounds at the base. No wheeze. HEART: S1, S2. Regular rate and rhythm. ABDOMEN: Soft. No tenderness. LABS: Hemoglobin is 12.2 with a white count of 7.2. Creatinine is 0.72. DIAGNOSTIC IMPRESSION AND PLAN: Patient with pseudomonas urinary tract infection, also with a component of possible aspiration pneumonitis. Recommending cefepime 2 grams q.12 hours and oral Flagyl for 7 to 10 days and outpatient followup. MMODL / IJN: [id number] /
== END 2019-12-22 13:16 ==
LOC: EC 21:43 → 5NMEDONC 21:51
PROVIDERS: ADMIT Internal Medicine; ATTEND Internal Medicine
DX: R05 Cough (principal); T83.511A Infection and inflammatory reaction due to indwelling urethral catheter, initial encounter; N39.0 Urinary tract infection, site not specified; B96.5 Pseudomonas (aeruginosa) (mallei) (pseudomallei) as the cause of diseases classified elsewhere; G93.41 Metabolic encephalopathy; G35 Multiple sclerosis; I10 Essential (primary) hypertension; K21.9 Gastro-esophageal reflux disease without esophagitis; N31.9 Neuromuscular dysfunction of bladder, unspecified; F32.9 Major depressive disorder, single episode, unspecified; R47.1 Dysarthria and anarthria; R13.10 Dysphagia, unspecified; R53.81 Other malaise; H54.61 Unqualified visual loss, right eye, normal vision left eye; G31.84 Mild cognitive impairment of uncertain or unknown etiology; M19.90 Unspecified osteoarthritis, unspecified site; E87.70 Fluid overload, unspecified; E87.0 Hyperosmolality and hypernatremia; Z87.01 Personal history of pneumonia (recurrent); Z79.899 Other long term (current) drug therapy; Z88.1 Allergy status to other antibiotic agents; Z93.1 Gastrostomy status; Z74.01 Bed confinement status; Z86.14 Personal history of Methicillin resistant Staphylococcus aureus infection; Z16.12 Extended spectrum beta lactamase (ESBL) resistance; Z87.891 Personal history of nicotine dependence; Z86.718 Personal history of other venous thrombosis and embolism
CPT/HCPCS: 96366 ×2; 96375; 96365; 99285; 80048 ×2; 85025 ×2; 71045 ×2; G0378 ×3; J1940; J0692 ×3

== ENCOUNTER 2020-04-14 00:30 | Inpatient (IN) | payer MEDICARE, OTHER ==
[2020-04-14] MEDS ORDERED: SODIUM CHLORIDE 0.9% 500 ML 500 ML IV STA (00:43)
[2020-04-14] MEDS ORDERED: LORazepam 2 MG/ML INJ IV STA ×2 (00:43→01:17)
--- NOTE | 2020-04-14 00:43 | ED ---
General Adult HPI - General Stated complaint: Seizure Time Seen by Provider: 04/14/20 00:37 - History of Present Illness Initial comments: Chris is a 1-year-old male who is bedbound secondary to advanced MS. Patient is brought to the ER today by ambulance for evaluation of focal seizure. Staff noted that the patient's right arm and the right side of his face seemed to be twitching. He denies any recent trauma or falls out of bed. EMS reports that bandar peña noted the same however the patient seemed to respond to voice though he couldn't control the arm, no medications are given in route to the hospital. - Related Data Home Medications Medication Instructions Recorded Confirmed Amantadine 50mg/5ml 100 mg PEG/G-TUBE Q12H 12/28/17 12/21/19 Ascorbic Acid [Vitamin C] 250 mg PEG/G-TUBE DAILY 12/28/17 12/21/19 Cholecalciferol [Vitamin D3 (25 1,000 unit PEG/G-TUBE DAILY 12/28/17 12/21/19 Mcg = 1000 Iu)] Docusate Oral Soln [Colace Oral 200 mg PEG/G-TUBE BID 12/28/17 12/21/19 Soln] Scopolamine 1.5MG/72Hr Patch 1 patch TRANSDERM Q72H 12/28/17 12/21/19 [TransDerm Scop] guaiFENesin [guaiFENesin Oral 200 mg PEG/G-TUBE Q6H PRN 12/28/17 12/21/19 Solution] Furosemide [Lasix] 20 mg PEG/G-TUBE DAILY 05/24/18 12/21/19 Acetaminophen Oral Susp [Tylenol] 320 mg PEG/G-TUBE Q6H PRN 01/26/19 12/21/19 Omeprazole Magnesium [PriLOSEC 20 mg PEG/G-TUBE DAILY 01/26/19 12/21/19 Oral Susp] carBAMazepine [carBAMazepine Oral 300 mg PEG/G-TUBE Q8H 04/15/19 12/21/19 Susp] Cranberry Fruit Extract [Cranberry] 500 mg PEG/G-TUBE Q12H 06/03/19 12/21/19 Metoprolol Tartrate [Lopressor] 50 mg PEG/G-TUBE BID 07/29/19 12/21/19 Oxybutynin Chloride [Ditropan Oral 5 mg PEG/G-TUBE TID 09/08/19 12/21/19 Soln] Polyethylene Glycol 3350 [Miralax] 17 gm PEG/G-TUBE HS 09/08/19 12/21/19 Baclofen 5 mg PEG/G-TUBE TID 12/16/19 12/21/19 Ipratropium-Albuterol Nebulize 3 ml INHALATION RT-Q6H PRN 12/16/19 12/21/19 [Duoneb 0.5 mg-3 mg/3 ml Soln] Previous Rx's Medication Instructions Recorded Cefepime HCl [Maxipime] 2 gm IV Q12H 8 Days #20 vial 12/22/19 HYDROcodone/APAP 5-325MG [[place] 1 each PO Q12HR PRN #1 tab 12/22/19 5-325] metroNIDAZOLE [Flagyl] 500 mg PO TID 8 Days #30 tab 12/22/19 Allergies Allergy/AdvReac Type Severity Reaction Status Date / Time meropenem [From Merrem] Allergy Rash/Hives Verified 04/14/20 00:50 Review of Systems ROS Statement: Those systems with pertinent positive or pertinent negative responses have been documented in the HPI. ROS Other: All systems not noted in ROS Statement are negative. Past Medical History Past Medical History: Deep Vein Thrombosis (DVT), GERD/Reflux, Hypertension, Musculoskeletal Disorder, Pneumonia, Renal Disease Additional Past Medical History / Comment(s): MS, cognitive impariment/ non verbal, NPO-peg tube,DVT-arm , IDC ,INCONT OF BOWEL. DYSARTHRIA/ANARTHRIA/DYSPHAGIA. 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, MRSA Date of last positivie culture/infection: 09/13/19-MRSA; 11/23/19 ESBL-E.coli MDRO Source:: Broch lavage-Mrsa; Urine -ESBL Additional Past Surgical History / Comment(s): PEG TUBE, HX OF GASTROSTOMY, Past Anesthesia/Blood Transfusion Reactions: Unable to Obtain Past Psychological History: Depression Past Alcohol Use History: None Reported Past Drug Use History: None Reported - Past Family History Father Family Medical History: Unable to Obtain Additional Family Medical History / Comment(s): patient is nonverbal Mother Family Medical History: Unable to Obtain Additional Family Medical History / Comment(s): patient is nonverbal General Exam - General Exam Comments Initial Comments: Physical Exam GENERAL: Chronically ill-appearing, debilitated, contracted bedbound Focal seizure noted in the right upper extremity HENT: Normocephalic, Atraumatic. Temporal wasting noted EYES: Horizontal nystagmus noted during seizure-like activity PULMONARY: Unlabored respirations. No audible rales rhonchi or wheezing was noted. CARDIOVASCULAR: There is a regular rate and rhythm without any murmurs gallops or rubs. ABDOMEN: PEG tube in place SKIN: Skin is clear with no lesions or rashes and otherwise unremarkable. : Deferred NEUROLOGIC: Focal seizure of the right upper extremity MUSCULOSKELETAL: Contractures in all extremities, general atrophy PSYCHIATRIC: Unable to assess Course Vital Signs 04/14/20 00:39 Temperature 97.6 F Pulse Rate 103 H Respiratory 19 Rate Blood Pressure 171/109 O2 Sat by Pulse 95 Oximetry EKG Findings - EKG Comments: EKG Findings:: KG was obtained due to complaint of seizure activity, EKG was obtained at 1:29 AM, rate is 87, rhythm is sinus there is a normal axis, there are normal intervals, HI 164, QRS 82, QTc is 440 there are no acute ST elevations or depressions there is no evidence of acute ischemia or infarction. Medical Decision Making - Medical Decision Making Patient was seen and evaluated immediately upon arrival the emergency department patient was noted to be having a focal seizure Ativan was ordered, 1 mg administered Labs were ordered, head CT Was reevaluated 5 minutes after first milligram of Ativan, had persistent seizure activity in the right arm additional 1 mg was administered Labs resulted with no abnormalities Head CT result of chronic changes, no acute findings A she was reevaluated after second dose of Ativan and is now seizure-free. Resting comfortably Patient care was discussed with his daughter who confirms he is a full code and consents to admission - Lab Data Result diagrams: 04/14/20 01:06 04/14/20 01:06 Lab Results 04/14/20 04/14/20 Range/Units 01:06 01:06 WBC 8.1 (3.8-10.6) k/uL RBC 5.38 (4.30-5.90) m/uL Hgb 15.1 (13.0-17.5) gm/dL Hct 47.5 (39.0-53.0) % MCV 88.4 (80.0-100.0) fL MCH 28.2 (25.0-35.0) pg MCHC 31.9 (31.0-37.0) g/dL RDW 14.7 (11.5-15.5) % Plt Count 342 (150-450) k/uL Neutrophils % 79 % Lymphocytes % 10 % Monocytes % 6 % Eosinophils % 3 % Basophils % 0 % Neutrophils # 6.4 (1.3-7.7) k/uL Lymphocytes # 0.8 L (1.0-4.8) k/uL Monocytes # 0.5 (0-1.0) k/uL Eosinophils # 0.3 (0-0.7) k/uL Basophils # 0.0 (0-0.2) k/uL Sodium 137 (137-145) mmol/L Potassium 4.0 (3.5-5.1) mmol/L Chloride 104 (98-107) mmol/L Carbon Dioxide 26 (22-30) mmol/L Anion Gap 7 mmol/L BUN 17 (9-20) mg/dL Creatinine 0.66 (0.66-1.25) mg/dL Est GFR (CKD-EPI)AfAm >90 (>60 ml/min/1.73 sqM) Est GFR (CKD-EPI)NonAf >90 (>60 ml/min/1.73 sqM) Glucose 99 (74-99) mg/dL Calcium 9.1 (8.4-10.2) mg/dL Total Bilirubin 0.3 (0.2-1.3) mg/dL AST 26 (17-59) U/L ALT 20 (4-49) U/L Alkaline Phosphatase 172 H (38-126) U/L Total Protein 7.5 (6.3-8.2) g/dL Albumin 4.1 (3.5-5.0) g/dL Critical Care Time Critical Care Time: Yes Total Critical Care Time: 30 Critical Care Time: Critical care time was exclusive of separately billable procedures and treating other patients and teaching time. Critical care was necessary to treat or prevent imminent or life-threatening deterioration. Given the critical condition in which the patient arrived, the patient was immediately assessed by myself and the nurse, and cardiac monitoring initiated due to the potential for rapid decompensation of the patient's clinical condition. During the course of the patients stay, I spent a considerable amount of time at the bedside performing serial re-evaluations of the patient's hemodynamic and clinical status because of the recognized potential threat to life or limb in this condition. I then had a chance to review not only all of the available current laboratory and radiographic studies obtained today, but I also reviewed old records available to me at the time. Additionally, any ancillary information available including truck switcher records were reviewed. Sequential vital signs were obtained. Disposition Clinical Impression: Focal motor seizure, Multiple sclerosis Disposition: ADMITTED IP TO THIS [facility] Condition: Serious Is patient prescribed a controlled substance at d/c from ED?: No Referrals: Matteo Hernandez MD [Primary Care Provider] - 1-2 days
[2020-04-14 01:22] LABS: Basophils % (A) 0 %; Eosinophils # (A) 0.3 k/uL (0-0.7); Eosinophils % (A) 3 %; HCT 47.5 % (39.0-53.0); HGB 15.1 gm/dL (13.0-17.5); Lymphocytes # (A) 0.8 k/uL (1.0-4.8); Lymphocytes % (A) 10 %; MCH 28.2 pg (25.0-35.0); MCHC 31.9 g/dL (31.0-37.0); MCV 88.4 fL (80.0-100.0); Monocytes # (A) 0.5 k/uL (0-1.0); Monocytes % (A) 6 %; Neutrophils # (A) 6.4 k/uL (1.3-7.7); Neutrophils % (A) 79 %; Platelet Count 342 k/uL (150-450); RBC 5.38 m/uL (4.30-5.90); RDW 14.7 % (11.5-15.5); WBC 8.1 k/uL (3.8-10.6)
--- NOTE | 2020-04-14 01:27 | CT ---
EXAMINATION TYPE: CT brain wo con DATE OF EXAM: 04/14/2020 COMPARISON: 11/28/2019 HISTORY: seizures CT DLP: 1111.4 mGycm Automated exposure control for dose reduction was used. There is moderate diffuse atrophy. There is extensive hypodensity in the periventricular white matter . There is no mass effect nor midline shift. There is no sign of intracranial hemorrhage. The calvari um is intact. There is apparent old right cerebellar hemisphere cortical lateral infarct. IMPRESSION: Cerebral atrophy and extensive chronic white matter changes probably due to small vessel ischemia. 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 No change compared to old exam.
[2020-04-14 01:33] LABS: ALT 20 U/L (4-49); AST 26 U/L (17-59); African American GFR (CKD) >90 (>60 ml/min/1.73 sqM); Albumin 4.1 g/dL (3.5-5.0); Alkaline Phosphatase 172 U/L (38-126); Anion Gap 7 mmol/L; Blood Urea Nitrogen 17 mg/dL (9-20); Calcium 9.1 mg/dL (8.4-10.2); Carbon Dioxide 26 mmol/L (22-30); Chloride 104 mmol/L (98-107); Glucose 99 mg/dL (74-99); Non-African American GFR(CKD) >90 (>60 ml/min/1.73 sqM); Sodium 137 mmol/L (137-145); Total Bilirubin 0.3 mg/dL (0.2-1.3); Total Protein 7.5 g/dL (6.3-8.2)
[2020-04-14] MEDS ORDERED: NALOXONE 0.4 MG/ML 1 ML VIAL IV PRN (01:44)
[2020-04-14] MEDS ORDERED: LORazepam 2 MG/ML INJ IV PRN (01:49)
[2020-04-14] MEDS ORDERED: IPRATROPIUM-ALBUTEROL 3 ML NEB INHALATION PRN (05:38)
[2020-04-14] MEDS ORDERED: ACETAMINOPHEN ORAL SUSP 160 MG/5 ML CUP PEG/G-TUBE PRN (05:38)
[2020-04-14] MEDS ORDERED: SCOPOLAMINE 1.5MG/72HR PATCH TRANSDERM SCH (05:45)
[2020-04-14 07:04] LABS: Glucose,Whole Blood 111 mg/dL (75-99)
[2020-04-14] MEDS: CHOLECALCIFEROL 1,000 UNIT TAB PEG/G-TUBE SCH (09:39)
[2020-04-14] MEDS: PANTOPRAZOLE 40 MG/10 ML VIAL IV SCH (09:39)
[2020-04-14] MEDS: METOPROLOL TARTRATE 50 MG TAB PEG/G-TUBE SCH ×2 (09:39→20:00)
[2020-04-14] MEDS: ASCORBIC ACID 500 MG TAB PEG/G-TUBE SCH (09:40)
[2020-04-14] MEDS: OXYBUTYNIN CHLORIDE 5 MG TAB PEG/G-TUBE SCH ×3 (09:41→20:00)
[2020-04-14] MEDS: DOCUSATE ORAL SOLN 100 MG/10 ML CUP PEG/G-TUBE SCH ×2 (09:41→20:00)
[2020-04-14 11:28] LABS: Glucose,Whole Blood 106 mg/dL (75-99)
[2020-04-14 12:53] VITALS: BMI 25.1
[2020-04-14] MEDS: SODIUM CHLORIDE 0.9% 1,000 ML IV SCH (16:47)
--- NOTE | 2020-04-14 16:59 | P.HPIM ---
History of Present Illness H&P Date: 04/14/20 Chief Complaint: Seizures Patient is a 59-year-old male with a known history of hypertension, multiple sclerosis, cognitive impairment/nonoperable, contractures and bed bound is currently at extended care facility was brought to the hospital by ambulance due to evaluation of focal seizures. [facility] staff noted that the patient's right arm and right side of his face seemed to be twitching. No history of recent fall out of bed or trauma. EMS reports that they noted the stitching of the right side however the patient seems to respond to voice although he could not control his arm. Patient was brought to the hospital for evaluation. Patient has been afebrile. No nausea vomiting or diarrhea. Laboratory data showed WBC 8.1, hemoglobin 15.1 and platelets 342 lymphocytes 0.8, sodium 137, potassium 4.0, chloride 104, BUN [address] head showed cerebral atrophy and extensive chronic white matter changes probably due to small was ischemia. 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 No changes compared to old exam. EKG showed normal sinus rhythm. Review of Systems Review of systems could not be obtained from the patient. Past Medical History Past Medical History: Deep Vein Thrombosis (DVT), GERD/Reflux, Hypertension, Musculoskeletal Disorder, Pneumonia, Renal Disease Additional Past Medical History / Comment(s): MS, cognitive impariment/ non verbal, NPO-peg tube,DVT-arm , IDC ,INCONT OF BOWEL. contractures. DYSARTHRIA/ANARTHRIA/DYSPHAGIA. BEDBOUND, RACHEL LIFT TO W/C, neurogenic bladder, uti,anemia History of Any Multi-Drug Resistant Organisms: ESBL, MRSA Date of last positivie culture/infection: 09/13/19-MRSA; 11/23/19 ESBL-E.coli MDRO Source:: Broch lavage-Mrsa; Urine -ESBL Additional Past Surgical History / Comment(s): PEG TUBE, HX OF GASTROSTOMY, Past Anesthesia/Blood Transfusion Reactions: Unable to Obtain Smoking Status: Unknown if ever smoked - Past Family History Father Family Medical History: Unable to Obtain Additional Family Medical History / Comment(s): patient is nonverbal Mother Family Medical History: Unable to Obtain Additional Family Medical History / Comment(s): patient is nonverbal Medications and Allergies Home Medications Medication Instructions Recorded Confirmed Type Amantadine 50mg/5ml 100 mg PEG/G-TUBE Q12H 12/28/17 04/14/20 History Ascorbic Acid [Vitamin C] 1,000 mg PEG/G-TUBE Q12H 12/28/17 04/14/20 History Cholecalciferol [Vitamin D3 (25 1,000 unit PEG/G-TUBE DAILY 12/28/17 04/14/20 History Mcg = 1000 Iu)] Docusate Oral Soln [Colace Oral 200 mg PEG/G-TUBE BID 12/28/17 04/14/20 History Soln] Scopolamine 1.5MG/72Hr Patch 1 patch TRANSDERM Q72H 12/28/17 04/14/20 History [TransDerm Scop] guaiFENesin [guaiFENesin Oral 200 mg PEG/G-TUBE Q6H PRN 12/28/17 04/14/20 History Solution] Furosemide [Lasix] 20 mg PEG/G-TUBE DAILY 05/24/18 04/14/20 History Acetaminophen Oral Susp [Tylenol] 320 mg PEG/G-TUBE Q6H PRN 01/26/19 04/14/20 History Omeprazole Magnesium [PriLOSEC 20 mg PEG/G-TUBE DAILY 01/26/19 04/14/20 History Oral Susp] carBAMazepine [carBAMazepine Oral 300 mg PEG/G-TUBE TID 04/15/19 04/14/20 History Susp] Cranberry Fruit Extract [Cranberry] 500 mg PEG/G-TUBE Q12H 06/03/19 04/14/20 History Metoprolol Tartrate [Lopressor] 50 mg PEG/G-TUBE Q12H 07/29/19 04/14/20 History Oxybutynin Chloride [Ditropan Oral 5 mg PEG/G-TUBE TID 09/08/19 04/14/20 History Soln] Polyethylene Glycol 3350 [Miralax] 17 gm PEG/G-TUBE HS 09/08/19 04/14/20 History Baclofen 5 mg PEG/G-TUBE TID 12/16/19 04/14/20 History Ipratropium-Albuterol Nebulize 3 ml INHALATION RT-QID PRN 12/16/19 04/14/20 History [Duoneb 0.5 mg-3 mg/3 ml Soln] Albuterol Sulfate [Proair Hfa] 2 puff INHALATION RT-Q4H PRN 04/14/20 04/14/20 History guaiFENesin [guaiFENesin Oral 200 mg PEG/G-TUBE DIRECTED 04/14/20 04/14/20 History Solution] Allergies Allergy/AdvReac Type Severity Reaction Status Date / Time meropenem [From Merrem] Allergy Rash/Hives Verified 04/14/20 08:44 Physical Exam Vitals: Vital Signs Temp Pulse Pulse Resp BP BP Pulse Ox 04/14/20 04:02 98.6 F 81 16 153/93 99 04/14/20 02:30 87 17 145/94 99 04/14/20 01:30 86 18 154/96 100 04/14/20 00:39 97.6 F 103 H 19 171/109 95 Intake and Output 04/13/20 04/14/20 04/14/20 22:59 06:59 14:59 Output Total 500 Balance -500 Output: Urine 500 Uretheral (Stein) 500 Other: Voiding Method Indwelling Catheter Weight 77.111 kg PHYSICAL EXAMINATION: Patient is lying in the bed comfortably, no acute distress, awake alert. Patient is nonverbal and contracted... HEENT: Normocephalic. Neck is supple. Pupils reactive. Nostrils clear. Oral cavity is moist. Ears reveal no drainage. Neck reveals no JVD, carotid bruits, or thyromegaly. CHEST EXAMINATION: Trachea is central. Symmetrical expansion. Bibasilar diminished air entry. No wheezing.. CARDIAC: Normal S1, S2 with no gallops. No murmurs ABDOMEN: Soft. PEG tube in place. Bowel sounds normal. No organomegaly. No abdominal bruits. Extremities: reveal no edema. No clubbing or cyanosis Neurologically patient is nonverbal but awake alert and able to move his eyes. Skin: No rash or skin lesions. Psychiatric: Could not be assessed completely. Musculoskeletal: No joint swelling .. Results CBC & Chem 7: 04/14/20 01:06 04/14/20 01:06 Labs: Abnormal Lab Results - Last 24 Hours (Table) 04/14/20 04/14/20 04/14/20 Range/Units 01:06 01:06 07:02 Lymphocytes # 0.8 L (1.0-4.8) k/uL POC Glucose (mg/dL) 111 H (75-99) mg/dL Alkaline Phosphatase 172 H (38-126) U/L Thrombosis Risk Factor Assmnt - DVT/VTE Prophylaxis DVT/VTE Prophylaxis: Pharmacologic Prophylaxis ordered - Choose All That Apply Any of the Below Risk Factors Present?: Yes Each Factor Represents 1 point: Age 41-60 years, Medical pt on bed rest Other Risk Factors: Yes Each Risk Factor Represents 2 Points: Patient confined to bed Each Risk Factor Represents 3 Points: History of DVT/PE Other congenital or acquired thrombophilia - If yes, enter type in comment: No Thrombosis Risk Factor Assessment Total Risk Factor Score: 7 Thrombosis Risk Factor Assessment Level: High Risk Assessment and Plan Assessment: Right upper extremity and lower activity muscle twitching myoclonic jerks. Rule out seizures. Multiple sclerosis and patient is bedridden, contracture and has cognitive impairment. Hypertension GERD History of DVT History of ESBL urinary tract infection DVT prophylaxis Plan: Patient will be continued on gentle IV hydration and restart PEG tube feeding. Patient be continued on home medications including Tegretol and amantadine. Ativan when necessary for seizures. Continue with home blood pressure medications in the form of metoprolol. Pain management with Tylenol. Neurology was consulted and further recommendations based on the clinical course. Time with Patient: Greater than 30
[2020-04-14 17:18] LABS: Glucose,Whole Blood 115 mg/dL (75-99)
--- NOTE | 2020-04-14 18:36 | EEG ---
ELECTROENCEPHALOGRAM REPORT TECHNIQUE: This is a 21-channel routine EEG recording. CLINICAL DATA: This is a 59-year-old gentleman with history of multiple sclerosis and focal seizure (according to his sister, he had 3 focal seizures). He is nonverbal and resides in a residential. He was brought to the emergency department because of right-sided arm and shoulder jerking. This EEG was ordered to evaluate for seizure activity. DESCRIPTION: Only wakefulness was obtained. There was no posterior-dominant rhythm. The background consisted of moderate-voltage 1 to 2 Hz delta activity that is polymorphic with intermixed theta activity that is symmetrical. There was no physiological sleep architecture noted as stage II sleep. There is excessive fast activity noted throughout the study. There is significant myogenic artifact throughout the study noted. Ictal/interictal: None seen. ACTIVATION PROCEDURE: Photic stimulation did not produce a driving response. Hyperventilation was not performed because of the patient's clinical state. EEG DIAGNOSIS: This is an abnormal routine EEG due to: 1. 1 to 2 Hz delta activity intermixed with theta activity. 2. Excessive fast activity. 3. Myogenic artifact. CLINICAL INTERPRETATION: This is an abnormal routine EEG during awake state that is of moderate to severe encephalopathy of unspecified etiology. There is excessive fast activity, likely due to medication effect. The study was obscured by myogenic artifact. There was no epileptiform or seizure activity noted during the study. Clinical interpretation is recommended. MMODL / IJN: [id number] /
--- NOTE | 2020-04-14 19:49 | P.CNNES ---
History of Present Illness Consult date: 04/14/20 Requesting physician: Paula Yoder Reason for Consult: seizure History of Present Illness: Patient was obtained by medical records and patient's sister. This a 59-year-old gentleman with medical history of multiple sclerosis, cognitive impairment/nonverbal, trigeminal neuralgia, DVT, hypertension, urinary bowel incontinence, depression that was brought to the emergency department by EMS for focal seizure. Per the medical record was noted the patient's right arm and the right side of the face seemed to be twitching. Patient seemed to respond to voice to out and couldn't control the arm per EMS and no medications were given under to the hospital. Patient denies of recent trauma or falls out of bed. Per the sister stated she received a call from the skilled nursing yesterday that patient has jerking of the right side. She states he has had two previous seizures prior to this. The first seizure was in 2005 and his whole body gave out and second was Nov 2019 and he had jerking of the right upper and lower extremity and unknow of duration. She does not feel the patient is back to baseline. She states with verbal communication he would look at person and would have few words of communication or nods his head. She is not sure if he is on seizure medication or not. But does know he is on Carbamazepine and unsure of dose. Per records he is on 300mg 1 tab tid. Spoke with the patient nurse she states she knows the patient from prior visits and she feels he is back to baseline. During his stay the patient had a CT of the head which is reported as cerebral atrophy and extensive chronic white matter changes probably due to small vessel ischemia. 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 No change compared to old exam. EKG 04/14/20 is reported as normal sinus rhythm. Nonspecific ST abnormality. The ventricle he is 87. patient receive 1.5mg of Ativan. Our neurology team saw the patient on 06/04/2019 for change of mental status. MR the brain on 05/20/2018 and it was reported as no significant interval change compared to the 10/05/2015. Extensive chronic infarct, white matter demyelination as on prior exam can be indicative of chronic small vessel ischemic finding problem multiple sclerosis showed no interval change accounting for difference in technique. Patient had two routine EEGs in in our system: On 04/10/2018 was read as awake EEG can be considered within normal limits. There is no epileptiform discharges. On 08/10/2017 patient had a routine EEG and was read as moderate slowing. There is no focal epileptiform abnormalities. Past Medical History Past Medical History: Deep Vein Thrombosis (DVT), GERD/Reflux, Hypertension, Musculoskeletal Disorder, Pneumonia, Renal Disease Additional Past Medical History / Comment(s): MS, cognitive impariment/ non verbal, NPO-peg tube,DVT-arm , IDC ,INCONT OF BOWEL. contractures. DYSARTHRIA/ANARTHRIA/DYSPHAGIA. BEDBOUND, RACHEL LIFT TO W/C, neurogenic bladder, uti,anemia History of Any Multi-Drug Resistant Organisms: ESBL, MRSA Date of last positivie culture/infection: 09/13/19-MRSA; 11/23/19 ESBL-E.coli MDRO Source:: Broch lavage-Mrsa; Urine -ESBL Additional Past Surgical History / Comment(s): PEG TUBE, HX OF GASTROSTOMY, Past Anesthesia/Blood Transfusion Reactions: Unable to Obtain Smoking Status: Unknown if ever smoked - Past Family History Father Family Medical History: Unable to Obtain Additional Family Medical History / Comment(s): patient is nonverbal Mother Family Medical History: Unable to Obtain Additional Family Medical History / Comment(s): patient is nonverbal Medications and Allergies Home Medications Medication Instructions Recorded Confirmed Type Amantadine 50mg/5ml 100 mg PEG/G-TUBE Q12H 12/28/17 04/14/20 History Ascorbic Acid [Vitamin C] 1,000 mg PEG/G-TUBE Q12H 12/28/17 04/14/20 History Cholecalciferol [Vitamin D3 (25 1,000 unit PEG/G-TUBE DAILY 12/28/17 04/14/20 History Mcg = 1000 Iu)] Docusate Oral Soln [Colace Oral 200 mg PEG/G-TUBE BID 12/28/17 04/14/20 History Soln] Scopolamine 1.5MG/72Hr Patch 1 patch TRANSDERM Q72H 12/28/17 04/14/20 History [TransDerm Scop] guaiFENesin [guaiFENesin Oral 200 mg PEG/G-TUBE Q6H PRN 12/28/17 04/14/20 History Solution] Furosemide [Lasix] 20 mg PEG/G-TUBE DAILY 05/24/18 04/14/20 History Acetaminophen Oral Susp [Tylenol] 320 mg PEG/G-TUBE Q6H PRN 01/26/19 04/14/20 History Omeprazole Magnesium [PriLOSEC 20 mg PEG/G-TUBE DAILY 01/26/19 04/14/20 History Oral Susp] carBAMazepine [carBAMazepine Oral 300 mg PEG/G-TUBE TID 04/15/19 04/14/20 History Susp] Cranberry Fruit Extract [Cranberry] 500 mg PEG/G-TUBE Q12H 06/03/19 04/14/20 History Metoprolol Tartrate [Lopressor] 50 mg PEG/G-TUBE Q12H 07/29/19 04/14/20 History Oxybutynin Chloride [Ditropan Oral 5 mg PEG/G-TUBE TID 09/08/19 04/14/20 History Soln] Polyethylene Glycol 3350 [Miralax] 17 gm PEG/G-TUBE HS 09/08/19 04/14/20 History Baclofen 5 mg PEG/G-TUBE TID 12/16/19 04/14/20 History Ipratropium-Albuterol Nebulize 3 ml INHALATION RT-QID PRN 12/16/19 04/14/20 History [Duoneb 0.5 mg-3 mg/3 ml Soln] Albuterol Sulfate [Proair Hfa] 2 puff INHALATION RT-Q4H PRN 04/14/20 04/14/20 History guaiFENesin [guaiFENesin Oral 200 mg PEG/G-TUBE DIRECTED 04/14/20 04/14/20 History Solution] Allergies Allergy/AdvReac Type Severity Reaction Status Date / Time meropenem [From Merrem] Allergy Rash/Hives Verified 04/14/20 08:44 Physical Examination - Vital Signs Vital Signs: Vital Signs Temp Pulse Pulse Resp BP BP Pulse Ox 04/14/20 04:02 98.6 F 81 16 153/93 99 04/14/20 02:30 87 17 145/94 99 04/14/20 01:30 86 18 154/96 100 04/14/20 00:39 97.6 F 103 H 19 171/109 95 Intake and Output 04/13/20 04/14/20 04/14/20 22:59 06:59 14:59 Output Total 500 Balance -500 Output: Urine 500 Uretheral (Stein) 500 Other: Voiding Method Indwelling Catheter Indwelling Catheter Weight 77.111 kg 77.111 kg GENERAL: The patient is lying in bed and does not seem in acute distress. CHEST: The heart rate is regular rate rhythm. LUNG: Not labored breathing. ABDOMEN/GI: Bowel sounds present in all 4 quadrants. No tenderness to palpation throughout. NEUROLOGICAL: Is limited because of patient condition. Higher mental function: The patient is awake, alert and non verbal (per medical record this seems baseline). Would face me upon me talking to him. Does not follow commands. Cranial nerves: The pupils are round, equal and reactive to light . Visual prater are full to threat throughout. Facial sensation could not be assessed. The facial strength: could not appreciate facial weakness. Hearing could not be assessed. No tongue bite. Motor: Significant increased tone in bilateral lower extremities and left upper extremity (lower >upper). The right upper extremity seems flaccid (per sister he was getting Botox). Sensation: Could not be assessed.. Reflexes (right/left): 1+ throughout. Plantars are mute bilaterally. Results AST is 26 ALT is 20 Bumex 4.1. Calcium is 9.1. - Laboratory Findings CBC and BMP: 04/14/20 01:06 04/14/20 01:06 Abnormal Lab Findings: Abnormal Labs 04/14/20 04/14/20 04/14/20 01:06 01:06 07:02 Lymphocytes # 0.8 L POC Glucose (mg/dL) 111 H Alkaline Phosphatase 172 H 04/14/20 11:26 Lymphocytes # POC Glucose (mg/dL) 106 H Alkaline Phosphatase Assessment and Plan Assessment: This a 59-year-old gentleman with medical history of multiple sclerosis, cognitive impairment/nonverbal, trigeminal neuralgia, DVT, hypertension, urinary bowel incontinence, depression that was brought to the emergency department by the EMS for focal seizure. Per the medical record was noted the patient's right arm and the right side of the face seemed to be twitching. Patient seemed to respond to voice to out and couldn't control the arm per EMS and no medications were given under to the hospital. In the ED patient received 1.5gm of Ativan. Plan: Regarding the patient's history of seizure (focal) Per the sister this patient had 3 seizures in-total: We will order a routine EEG Recommend placing the patient on Keppra 500 mg twice a day especially since the patient has been having 3 episodes of reported seizure. Patient is on carbamazepine 200 mg 1 tablet 3 times a day for trigeminal neuralgia which is also an antiepileptic. Trigeminal neuralgia Patient is on carbamazepine 300 mg 1 tablet 3 times a day. Regarding the patient history of multiple sclerosis patient has not been on disease modifying medication for MS for more than 10 years patient follows up with outpatient neurologist (DR. Casey). All the right cerebral hemispheric cortical infarct: Recommend placing the patient on aspirin 81 mg as well as Lipitor 20 mg daily for secondary stroke prophylaxis. Plan we'll discussed with the patient's sister. Thank You for the consult Jamison Hawkins MD Neurohospitalist
[2020-04-14] MEDS: levETIRAcetam 500 MG TAB PEG/G-TUBE SCH (19:59)
[2020-04-14 20:35] LABS: Glucose,Whole Blood 121 mg/dL (75-99)
[2020-04-14] MEDS ORDERED: polyethylene glycoL 3350 17 GM POWD.PACK PEG/G-TUBE SCH (21:00)
[2020-04-15 07:12] LABS: Glucose,Whole Blood 121 mg/dL (75-99)
[2020-04-15] MEDS ORDERED: ASPIRIN 81 MG PEG/G-TUBE SCH (09:00)
[2020-04-15] MEDS: SODIUM CHLORIDE 0.9% 1,000 ML IV SCH (09:48)
[2020-04-15] MEDS: levETIRAcetam 500 MG TAB PEG/G-TUBE SCH (09:49)
[2020-04-15] MEDS: METOPROLOL TARTRATE 50 MG TAB PEG/G-TUBE SCH (09:50)
[2020-04-15] MEDS: CHOLECALCIFEROL 1,000 UNIT TAB PEG/G-TUBE SCH (09:50)
[2020-04-15] MEDS: ASCORBIC ACID 500 MG TAB PEG/G-TUBE SCH (09:50)
[2020-04-15] MEDS: PANTOPRAZOLE 40 MG/10 ML VIAL IV SCH (09:51)
[2020-04-15] MEDS: OXYBUTYNIN CHLORIDE 5 MG TAB PEG/G-TUBE SCH (09:55)
[2020-04-15] MEDS: DOCUSATE ORAL SOLN 100 MG/10 ML CUP PEG/G-TUBE SCH (09:55)
[2020-04-15 11:33] LABS: Glucose,Whole Blood 114 mg/dL (75-99)
--- NOTE | 2020-04-15 12:12 | P.DS ---
Providers Date of admission: 04/14/20 01:44 Expected date of discharge: 04/15/20 Attending physician: Dara Crowe Consults: 04/14/20 01:50 Consult Physician Urgent Consulting Provider: Jamison Hawkins Consult Reason/Comments: focal seizure in MS patient Do you want consulting provider notified?: Yes, Notify in am Primary care physician: Matteo [facility] Course: Final diagnosis Right upper extremity and lower activity muscle twitching myoclonic jerks. Multiple sclerosis and patient is bedridden, contractures and has cognitive impairment. Hypertension GERD History of DVT History of ESBL urinary tract infection DVT prophylaxis Discharge disposition Patient is being discharged in a stable condition with guarded prognosis to [facility] as he is a resident there. Patient will follow-up with Dr. Hernandez upon discharge. Patient will continue with Keppra 500 mg twice daily along with aspirin daily. Patient will need follow-up with neurology in the outpatient setting. Total time taken is 35 minutes. History of present illness This is a 59-year-old male who was recently admitted with focal seizures and was being closely monitored. detention staff had noticed right arm and right side of the face twitching on multiple occasions. Patient is on carbamazepine and will continue with this dose as well in the outpatient setting. Patient was seen and evaluated by neurology and initiated on Keppra 500 mg twice daily along with aspirin daily and will continue with this in the outpatient setting. During hospitalization patient underwent an EEG which showed no epileptiform seizures or activity noted. Patient will need to follow-up with neurologist in the outpatient setting. Patient will be returning to [facility] as he is a resident there. Patient had Covid testing during hospitalization and was negative. No seizure-like activity noted per nursing staff. Currently no reports of chest pain, shortness of breath, or palpitations. Patient is afebrile. No reports of nausea or vomiting and patient is tolerating diet. Guarded prognosis. On exam vital signs are stable. Temp is 98.8F, pulse is 71, respirations are 20, blood pressure is 109/67, oxygen saturation is 97% on 2 L via nasal cannula. Cardio S1, S2 are muffled. Respiratory shows diminished breath sounds at the bases with a few scattered rhonchi noted. Abdomen is soft and nontender. Nervous system shows mild diffuse weakness. Please refer to medication reconciliation sheet for a list of medications. Patient Condition at Discharge: Stable Plan - Discharge Summary New Discharge Prescriptions: New Aspirin 81 mg PEG/G-TUBE DAILY chew levETIRAcetam [Keppra] 500 mg PEG/G-TUBE Q12HR tab Continue Cholecalciferol [Vitamin D3 (25 Mcg = 1000 Iu)] 1,000 unit PEG/G-TUBE DAILY Docusate Oral Soln [Colace Oral Soln] 200 mg PEG/G-TUBE BID Amantadine 50mg/5ml 100 mg PEG/G-TUBE Q12H Ascorbic Acid [Vitamin C] 1,000 mg PEG/G-TUBE Q12H guaiFENesin [guaiFENesin Oral Solution] 200 mg PEG/G-TUBE Q6H PRN PRN Reason: Cough Scopolamine 1.5MG/72Hr Patch [TransDerm Scop] 1 patch TRANSDERM Q72H Furosemide [Lasix] 20 mg PEG/G-TUBE DAILY Acetaminophen Oral Susp [Tylenol] 320 mg PEG/G-TUBE Q6H PRN PRN Reason: Fever And/ Or Pain Omeprazole Magnesium [PriLOSEC Oral Susp] 20 mg PEG/G-TUBE DAILY carBAMazepine [carBAMazepine Oral Susp] 300 mg PEG/G-TUBE TID Cranberry Fruit Extract [Cranberry] 500 mg PEG/G-TUBE Q12H Metoprolol Tartrate [Lopressor] 50 mg PEG/G-TUBE Q12H Polyethylene Glycol 3350 [Miralax] 17 gm PEG/G-TUBE HS Oxybutynin Chloride [Ditropan Oral Soln] 5 mg PEG/G-TUBE TID Baclofen 5 mg PEG/G-TUBE TID Ipratropium-Albuterol Nebulize [Duoneb 0.5 mg-3 mg/3 ml Soln] 3 ml INHALATION RT-QID PRN PRN Reason: Wheezing guaiFENesin [guaiFENesin Oral Solution] 200 mg PEG/G-TUBE DIRECTED Albuterol Sulfate [Proair Hfa] 2 puff INHALATION RT-Q4H PRN PRN Reason: Shortness Of Breath Discharge Medication List Amantadine 50mg/5ml 100 mg PEG/G-TUBE Q12H 12/28/17 [History] Ascorbic Acid [Vitamin C] 1,000 mg PEG/G-TUBE Q12H 12/28/17 [History] Cholecalciferol [Vitamin D3 (25 Mcg = 1000 Iu)] 1,000 unit PEG/G-TUBE DAILY 12/28/17 [History] Docusate Oral Soln [Colace Oral Soln] 200 mg PEG/G-TUBE BID 12/28/17 [History] Scopolamine 1.5MG/72Hr Patch [TransDerm Scop] 1 patch TRANSDERM Q72H 12/28/17 [History] guaiFENesin [guaiFENesin Oral Solution] 200 mg PEG/G-TUBE Q6H PRN 12/28/17 [History] Furosemide [Lasix] 20 mg PEG/G-TUBE DAILY 05/24/18 [History] Acetaminophen Oral Susp [Tylenol] 320 mg PEG/G-TUBE Q6H PRN 01/26/19 [History] Omeprazole Magnesium [PriLOSEC Oral Susp] 20 mg PEG/G-TUBE DAILY 01/26/19 [History] carBAMazepine [carBAMazepine Oral Susp] 300 mg PEG/G-TUBE TID 04/15/19 [History] Cranberry Fruit Extract [Cranberry] 500 mg PEG/G-TUBE Q12H 06/03/19 [History] Metoprolol Tartrate [Lopressor] 50 mg PEG/G-TUBE Q12H 07/29/19 [History] Oxybutynin Chloride [Ditropan Oral Soln] 5 mg PEG/G-TUBE TID 09/08/19 [History] Polyethylene Glycol 3350 [Miralax] 17 gm PEG/G-TUBE HS 09/08/19 [History] Baclofen 5 mg PEG/G-TUBE TID 12/16/19 [History] Ipratropium-Albuterol Nebulize [Duoneb 0.5 mg-3 mg/3 ml Soln] 3 ml INHALATION RT-QID PRN 12/16/19 [History] Albuterol Sulfate [Proair Hfa] 2 puff INHALATION RT-Q4H PRN 04/14/20 [History] guaiFENesin [guaiFENesin Oral Solution] 200 mg PEG/G-TUBE DIRECTED 04/14/20 [History] Aspirin 81 mg PEG/G-TUBE DAILY chew 04/15/20 [Rx] levETIRAcetam [Keppra] 500 mg PEG/G-TUBE Q12HR tab 04/15/20 [Rx] Follow up Appointment(s)/Referral(s): Matteo Hernandez MD [Primary Care Provider] - 1-2 days Deirdre Dotson MD [Medical Doctor] - 2 Weeks Activity/Diet/Wound Care/Special Instructions: Patient is going to [facility] Activity as tolerated Continue with tube feedings Follow-up with primary care provider upon discharge Follow-up with neurology in the outpatient setting Discharge Disposition: TRANSFER TO SNF/ECF
[2020-04-15 14:01] VITALS: BP 126/70; PULSE 70; RESP 22; TEMP 98.2
== END 2020-04-15 15:00 | DRG 93 ==
LOC: EC 00:30 → 5NMEDONC 01:44
PROVIDERS: ADMIT Hospitalist; ATTEND Hospitalist
DX: G25.3 Myoclonus (principal); G35 Multiple sclerosis; I10 Essential (primary) hypertension; K21.9 Gastro-esophageal reflux disease without esophagitis; N31.9 Neuromuscular dysfunction of bladder, unspecified; F32.9 Major depressive disorder, single episode, unspecified; G50.0 Trigeminal neuralgia; R13.10 Dysphagia, unspecified; R15.9 Full incontinence of feces; R47.1 Dysarthria and anarthria; R41.89 Other symptoms and signs involving cognitive functions and awareness; R32 Unspecified urinary incontinence; Z11.59 Encounter for screening for other viral diseases; Z74.01 Bed confinement status; Z86.718 Personal history of other venous thrombosis and embolism; Z86.73 Personal history of transient ischemic attack (TIA), and cerebral infarction without residual deficits; Z79.899 Other long term (current) drug therapy; Z87.440 Personal history of urinary (tract) infections; Z93.1 Gastrostomy status; Z88.1 Allergy status to other antibiotic agents; Z87.01 Personal history of pneumonia (recurrent); Z86.14 Personal history of Methicillin resistant Staphylococcus aureus infection
CPT/HCPCS: 36415; 70450; 80053; 85025; 95816; 96361; 96374; 99291

== ENCOUNTER → 2020-04-23 | Outpatient (CLI) | payer MEDICARE, OTHER ==
[2020-04-23 13:28] LABS: African American GFR (CKD) >90 (>60 ml/min/1.73 sqM); Blood Urea Nitrogen 17 mg/dL (9-20); Non-African American GFR(CKD) >90 (>60 ml/min/1.73 sqM)
--- NOTE | 2020-04-23 17:58 | CT ---
EXAMINATION TYPE: CT abdomen pelvis w con DATE OF EXAM: 04/23/2020 COMPARISON: CT abdomen pelvis 06/06/2019 HISTORY: UTI, site not specified. Hematuria. PT non-verbal and unable to provide hx, and not able to drink oral contrast. Option to use peg tube was not given. Verbal consent given by legal guardian CT DLP: 1045.60 mGycm Automated exposure control for dose reduction was used. TECHNIQUE: Helical acquisition of images was performed from the lung bases through the pelvis. CONTRAST: Performed without Oral Contrast and with IV Contrast, patient injected with 100 mL of Isovue 300. FINDINGS: LUNG BASES: Bibasilar atelectasis. LIVER: Normal where visualized. There is beam hardening from the patient's arm overlying liver and up per abdomen. BILIARY SYSTEM: Normal. PANCREAS: Normal. SPLEEN: Normal. ADRENALS: Normal. KIDNEYS: No hydronephrosis bilaterally. There is interval decrease in size of the left kidney and res idual perinephric stranding. There is resolution of the previously demonstrated large left kidney sub capsular hematoma. BOWEL: Gastrostomy tube within the stomach. There is a large amount of fecal debris throughout the c olon to the level of the rectal vault. PERITONEUM: No free air is visualized. No free fluid. ADENOPATHY: No lymphadenopathy. PELVIS: Urinary bladder incompletely distended with Stein catheter, with circumferential bladder wall thickening and minimal pericystic inflammation. VASCULATURE: No abdominal aortic aneurysm. MUSCULOSKELETAL: There is chronic deformity of the left hip with nonunited femoral neck fracture. Ch ronic bony exostosis of the right femur. There is dextro scoliosis of the lumbar spine. Osteoporosis. Degenerative changes of the spine. IMPRESSION: 1. Urinary bladder incompletely distended with Stein catheter, however circumferentially thickened wi th minimal inflammation. Findings may represent cystitis. Correlate with urinalysis. 2. Large amount of colonic and rectal vault fecal debris, findings likely represent clinically signif icant constipation. 3. No hydronephrosis bilaterally. There is scarring and perinephric stranding of the left kidney stat us post resolution of subcapsular hematoma.
== END | disposition home or self-care (01) ==
LOC: RADCTMAIN 12:13
PROVIDERS: ATTEND Urology
DX: N39.0 Urinary tract infection, site not specified (principal)
CPT/HCPCS: 82565; 84520; 74177; 36415; Q9967

== ENCOUNTER 2020-06-05 11:38 | Emergency (ER) | payer MEDICARE, OTHER ==
[2020-06-05 11:46] VITALS: RESP 18; TEMP 97.5
--- NOTE | 2020-06-05 13:00 | ED ---
Recheck HPI <Brenden Burleson - Last Filed: 06/05/20 13:01> - General Source: patient, old records reviewed Mode of arrival: ambulatory Limitations: language barrier, physical limitation <Penelope Bello - Last Filed: 06/05/20 13:28> - General Chief Complaint: Recheck/Abnormal Lab/Rx Stated Complaint: PEG Tube Replacement Time Seen by Provider: 06/05/20 11:43 - History of Present Illness Initial Comments: Patient is a 60-year-old male, MS, cognitive impairment, presenting to the emergency department via EMS for pulling out his PEG tube. Patient has been seen in the ER for this before. It is unknown how long his PEG tube has been out. Patient is nonverbal but denies any pain at this time. There is been no fevers. There is been no vomiting. He has no other complaints. Upon arrival to the ER, his vitals are stable. (Penelope Bello) - Related Data Home Medications Medication Instructions Recorded Confirmed Amantadine 50mg/5ml 100 mg PEG/G-TUBE Q12H 12/28/17 04/14/20 Ascorbic Acid [Vitamin C] 1,000 mg PEG/G-TUBE Q12H 12/28/17 04/14/20 Cholecalciferol [Vitamin D3 (25 1,000 unit PEG/G-TUBE DAILY 12/28/17 04/14/20 Mcg = 1000 Iu)] Docusate Oral Soln [Colace Oral 200 mg PEG/G-TUBE BID 12/28/17 04/14/20 Soln] Scopolamine 1.5MG/72Hr Patch 1 patch TRANSDERM Q72H 12/28/17 04/14/20 [TransDerm Scop] guaiFENesin [guaiFENesin Oral 200 mg PEG/G-TUBE Q6H PRN 12/28/17 04/14/20 Solution] Furosemide [Lasix] 20 mg PEG/G-TUBE DAILY 05/24/18 04/14/20 Acetaminophen Oral Susp [Tylenol] 320 mg PEG/G-TUBE Q6H PRN 01/26/19 04/14/20 Omeprazole Magnesium [PriLOSEC 20 mg PEG/G-TUBE DAILY 01/26/19 04/14/20 Oral Susp] carBAMazepine [carBAMazepine Oral 300 mg PEG/G-TUBE TID 04/15/19 04/14/20 Susp] Cranberry Fruit Extract [Cranberry] 500 mg PEG/G-TUBE Q12H 06/03/19 04/14/20 Metoprolol Tartrate [Lopressor] 50 mg PEG/G-TUBE Q12H 07/29/19 04/14/20 Oxybutynin Chloride [Ditropan Oral 5 mg PEG/G-TUBE TID 09/08/19 04/14/20 Soln] polyethylene glycoL 3350 [Miralax] 17 gm PEG/G-TUBE HS 09/08/19 04/14/20 Baclofen 5 mg PEG/G-TUBE TID 12/16/19 04/14/20 Ipratropium-Albuterol Nebulize 3 ml INHALATION RT-QID PRN 12/16/19 04/14/20 [Duoneb 0.5 mg-3 mg/3 ml Soln] Albuterol Sulfate [Proair Hfa] 2 puff INHALATION RT-Q4H PRN 04/14/20 04/14/20 guaiFENesin [guaiFENesin Oral 200 mg PEG/G-TUBE DIRECTED 04/14/20 04/14/20 Solution] Previous Rx's Medication Instructions Recorded Aspirin 81 mg PEG/G-TUBE DAILY chew 04/15/20 levETIRAcetam [Keppra] 500 mg PEG/G-TUBE Q12HR tab 04/15/20 Allergies Allergy/AdvReac Type Severity Reaction Status Date / Time meropenem [From Merrem] Allergy Rash/Hives Verified 06/05/20 11:47 Review of Systems ROS Other: All systems not noted in ROS Statement are negative. <Brenden Burleson - Last Filed: 06/05/20 13:01> ROS Other: All systems not noted in ROS Statement are negative. <Penelope Bello - Last Filed: 06/05/20 13:28> ROS Statement: Those systems with pertinent positive or pertinent negative responses have been documented in the HPI. Past Medical History Past Medical History: Deep Vein Thrombosis (DVT), GERD/Reflux, Hypertension, Musculoskeletal Disorder, Pneumonia, Renal Disease Additional Past Medical History / Comment(s): MS, cognitive impariment/ non verbal, NPO-peg tube,DVT-arm , IDC ,INCONT OF BOWEL. contractures. DYSARTHRIA/ANARTHRIA/DYSPHAGIA. BEDBOUND, RACHEL LIFT TO W/C, neurogenic bladder, uti,anemia History of Any Multi-Drug Resistant Organisms: ESBL, MRSA Date of last positivie culture/infection: 09/13/19-MRSA; 11/23/19 ESBL-E.coli MDRO Source:: Broch lavage-Mrsa; Urine -ESBL Additional Past Surgical History / Comment(s): PEG TUBE, HX OF GASTROSTOMY, Past Anesthesia/Blood Transfusion Reactions: Unable to Obtain Past Psychological History: Depression Smoking Status: Unknown if ever smoked - Past Family History Father Family Medical History: Unable to Obtain Additional Family Medical History / Comment(s): patient is nonverbal Mother Family Medical History: Unable to Obtain Additional Family Medical History / Comment(s): patient is nonverbal <Penelope Bello - Last Filed: 06/05/20 13:28> General Exam Limitations: language barrier, physical limitation <Penelope Bello - Last Filed: 06/05/20 13:28> - General Exam Comments Initial Comments: GENERAL: Patient is well-developed and well-nourished. Patient is nontoxic and in no acute distress. Nonverbal. HEAD: Atraumatic, normocephalic. EYES: Pupils equal round and reactive to light, extraocular movements intact, sclera anicteric, conjunctiva are normal. Eyelids were unremarkable. ENT: TMs normal, nares patent, oropharynx clear without exudates. Moist mucous membranes. NECK: Normal range of motion, supple without lymphadenopathy or JVD. LUNGS: Unlabored respirations. Breath sounds clear to auscultation bilaterally and equal. No wheezes rales or rhonchi. HEART: Regular rate and rhythm without murmurs, rubs or gallops. ABDOMEN: Soft, nontender, normoactive bowel sounds. No guarding, no rebound. No masses appreciated. PEG tube site shows no evidence of infection. Is no active bleeding. : Deferred MUSCULOSKELETAL: Normal extremities with adequate strength and normal range of motion, no pitting or edema. No clubbing or cyanosis. NEUROLOGICAL: History of MS, cognitive impairment, patient is at baseline. PSYCH: Normal mood, normal affect. SKIN: Warm, Dry, normal turgor, no rashes or lesions noted. (Penelope Bello) Course <Brenden Burleson - Last Filed: 06/05/20 13:01> Vital Signs 06/05/20 06/05/20 06/05/20 11:43 12:00 12:30 Temperature 97.5 F L Pulse Rate 69 58 L 60 Respiratory 18 18 18 Rate Blood Pressure 135/89 135/89 139/109 O2 Sat by Pulse 94 L 95 91 L Oximetry 06/05/20 13:07 Temperature Pulse Rate 59 L Respiratory 18 Rate Blood Pressure 144/92 O2 Sat by Pulse 99 Oximetry - Reevaluation(s) Reevaluation #1: 06/05/20 13:01 PA supervision I personally evaluate this patient and he came in with complaints of a dislodged PEG tube. Is unknown how long it was out. I did evaluate the site there is some proud flesh just superior to the site itself the tract was patent this was confirmed using a lubricated Q-tip. Introducer was used to personally dilate the tract and the new PEG tube was inserted by (my physician orthotic assistant.) Placement confirmed with Good return noted on gastric content and on auscultation. (Brenden Burleson) Procedures <Penelope Bello - Last Filed: 06/05/20 13:28> - Procedures Initial comment: 17-Croatian PEG tube was placed due to chronic PEG tube been pulled out by patient. Placement was confirmed via gastric contact and auscultation. (Penelope Bello) Medical Decision Making <Penelope Bello - Last Filed: 06/05/20 13:28> - Medical Decision Making Patient is 60-year-old male, history of MS, nonverbal presenting after pulling out his PEG tube. It is unknown how long the PEG tube was out. They did send his old PEG tube with the patient which is size 17-Croatian. A new 17-Croatian PEG tube was placed, assisted by Dr. Burleson. We did confirm placement by gastric contents and auscultation. Patient is in no acute distress. He is stable for discharge. Case discussed with Dr. Burleson. (Penelope Bello) Disposition <Brenden Burleson - Last Filed: 06/05/20 13:01> Is patient prescribed a controlled substance at d/c from ED?: No <Penelope Bello - Last Filed: 06/05/20 13:28> Clinical Impression: PEG tube malfunction Disposition: HOME SELF-CARE Condition: Stable Instructions (If sedation given, give patient instructions): How to Use and Car e for Your PEG Tube (ED) Additional Instructions: Please return to the Emergency Department if symptoms worsen or any other concerns. Referrals: Matteo Hernandez MD [Primary Care Provider] - 1-2 days
[2020-06-05 13:09] VITALS: BP 144/92; PULSE 59
== END 2020-06-05 13:53 | disposition home or self-care (01) ==
LOC: EC 11:38
DX: K94.23 Gastrostomy malfunction (principal); K21.9 Gastro-esophageal reflux disease without esophagitis; I10 Essential (primary) hypertension; Z79.899 Other long term (current) drug therapy; Z88.1 Allergy status to other antibiotic agents; Z86.718 Personal history of other venous thrombosis and embolism
CPT/HCPCS: 43762; 99283

== ENCOUNTER → 2020-06-15 | Outpatient (CLI) | payer MEDICARE, OTHER ==
--- NOTE | 2020-06-15 16:23 | MR ---
MRI CERVICAL SPINE and brain: CLINICAL HISTORY: G 34, multiple sclerosis TECHNIQUE: Multiplanar, multisequence imaging of the cervical spine is performed without contrast, ve in was not accessible for intravenous contrast COMPARISON: 05/20/2018 and MR brain FINDINGS: There is motion on the exam which limits evaluation. MR brain: There is no restricted diffusion. The extra-axial CSF signal in the posterior fossa on the right of midline is again noted and likely represents an arachnoid cyst. Extensive confluent hyperint ensity within the white matter on inversion recovery T2-weighted sequences is again seen, there is no evident hemorrhage or hydrocephalus. Cortical atrophy is again seen. The orbits are symmetric. There are normal vascular flow voids present. There are graph partially empty sella, thin corpus callosum again noted. IMPRESSION: Similar findings of extensive white matter demyelination as noted on prior exam. Motion i s present on the exam. Cervical spine MRI: There is extensive motion again noted, no significant degenerative disc change. N o significant spinal stenosis. Sagittal images of the cervical spine show the craniocervical junction to appear within normal limits . The cervical and upper thoracic spinal cord is normal in course, caliber. Vertebral alignment is anatomic. The vertebral body and intravertebral disk heights are normal with exception of increased signal at C4-5 which may be due to calcification, some loss of disc height and spondylosis. The bone marrow signal intensity is within normal limits. IMPRESSION: Extensive motion is present. No spinal stenosis.
== END | disposition home or self-care (01) ==
LOC: RADMRIMAIN 13:43
PROVIDERS: ATTEND Nurse Practitioner Acute Care
DX: G37.9 Demyelinating disease of central nervous system, unspecified (principal)
CPT/HCPCS: 70551; 72141

== ENCOUNTER 2020-07-04 01:07 | Emergency (ER) | payer MEDICARE, OTHER ==
[2020-07-04 01:17] VITALS: TEMP 99.2
[2020-07-04 01:22] LABS: Glucose,Whole Blood 130 mg/dL (75-99)
[2020-07-04 01:39] VITALS: BP 115/61; PULSE 122; RESP 24
[2020-07-04] MEDS ORDERED: ACETAMINOPHEN ORAL SUSP 160 MG/5 ML CUP PO STA (01:46)
[2020-07-04] MEDS ORDERED: LORazepam 2 MG/ML INJ IV STA (01:46)
[2020-07-04] MEDS: SODIUM CHLORIDE 0.9% 500 ML 500 ML IV SCH ×2 (01:54→04:00)
[2020-07-04] MEDS ORDERED: levETIRAcetam IV 1,000 MG in SALINE 1 100ML.BAG IVPB ONE (02:00)
[2020-07-04 02:17] LABS: Albumin 3.9 g/dL (3.5-5.0); Calcium 7.6 mg/dL (8.4-10.2); Total Bilirubin 2.1 mg/dL (0.2-1.3); Total Protein 7.7 g/dL (6.3-8.2)
[2020-07-04 02:31] LABS: HCT 48.3 % (39.0-53.0); HGB 15.7 gm/dL (13.0-17.5); MCH 28.7 pg (25.0-35.0); MCHC 32.5 g/dL (31.0-37.0); MCV 88.1 fL (80.0-100.0); Mean Platelet Volume 9.4; Platelet Count 248 k/uL (150-450); RBC 5.48 m/uL (4.30-5.90); RDW 14.6 % (11.5-15.5); WBC 5.9 k/uL (3.8-10.6)
--- NOTE | 2020-07-04 02:40 | XR ---
EXAMINATION TYPE: XR chest 1V portable DATE OF EXAM: 07/04/2020 COMPARISON: 12/22/2019 HISTORY: Fever TECHNIQUE: Single view FINDINGS: There is elevated right diaphragm. There is some infiltrate and atelectasis at the right jesus ng base. There is some minimal interstitial infiltrate and atelectasis left lung base. There is no gr oss heart failure. There are chest leads. Thoracic aorta is atheromatous. IMPRESSION: There is some new infiltrate and atelectasis right and left lung base compared to old exa m. No definite heart failure.
--- NOTE | 2020-07-04 02:42 | CT ---
EXAMINATION TYPE: CT brain wo con DATE OF EXAM: 07/04/2020 COMPARISON: 04/14/2020 HISTORY: Seizure CT DLP: 1186.4 mGycm Automated exposure control for dose reduction was used. There is patchy hypodensity in the periventricular white matter. There is cerebral atrophy. There is mild enlargement of the ventricles. There is no midline shift. There is no sign of intracranial hemor rhage. Calvarium is intact. IMPRESSION: Cerebral atrophy and extensive chronic small vessel ischemia. No acute intracranial abnormality. No c hange.
[2020-07-04 02:43] LABS: Amorphous Sediment,Urine Occasional /hpf; Appearance,Urine Turbid (Clear); Bacteria,Urine Moderate /hpf; Bilirubin,Urine Negative (Negative); Blood,Urine Negative (Negative); Color,Urine Yellow; Glucose,Urine (UA) Negative (Negative); Ketones,Urine Negative (Negative); Leukocyte Esterase,Urine Large (Negative); Mucus,Urine Few /hpf; Nitrite,Urine Positive (Negative); PH, Urine 8.5 (5.0-8.0); Protein,Urine 1+ (Negative); RBC,Urine 3 /hpf (0-5); Specific Gravity,Urine 1.012 (1.001-1.035); Triple Phosphate Crystal,Urine Many /hpf; Urobilinogen,Urine <2.0 mg/dL (<2.0); WBC,Urine 32 /hpf (0-5)
[2020-07-04 02:45] LABS: INR 1.1 (<1.2); Partial Thromboplastin Time 22.8 sec (22.0-30.0); Prothrombin Time 11.3 sec (9.0-12.0)
[2020-07-04] MEDS ORDERED: PNEUMONIA PROTOCOL UTILIZED 1 EACH MISC PO PRN (02:53)
[2020-07-04] MEDS ORDERED: PIPERACILLIN-TAZOBACTAM 3.375 GM in SODIUM CHLORIDE 0.9% 100 ML IVPB ONE (03:00)
[2020-07-04] MEDS ORDERED: AZITHROMYCIN 500 MG in SODIUM CHLORIDE 0.9% 250 ML IVPB ONE (03:00)
[2020-07-04 03:11] LABS: Band Neutrophils % 48 %; Metamyelocytes # (M) 0.12 k/uL (0); Metamyelocytes % 2 %; Monocytes # (M) 0.35 k/uL (0-1.0); Myelocytes # (M) 0.06 k/uL (0); Myelocytes % 1 %; Neutrophils % (M) 41 %; Nucleated Red Blood Cells 0 /100 WBC (0-0); Total Cells Counted 200
[2020-07-04 03:14] LABS: Anisocytosis (M) Present; Polychromasia Present; Toxic Vacuolation Present
[2020-07-04] MEDS ORDERED: SODIUM CHLORIDE 0.9% 1,000 ML IV SCH (03:15)
--- NOTE | 2020-07-04 03:44 | ED ---
Seizure HPI - General Source: EMS Mode of arrival: EMS Limitations: no limitations <Joanne Alvarez - Last Filed: 07/04/20 03:44> <Kris Canada - Last Filed: 07/04/20 08:06> - General Chief Complaint: Seizure Stated Complaint: seizure Time Seen by Provider: 07/04/20 01:10 - History of Present Illness Initial Comments: 60-year-old male patient with past medical history significant for advanced multiple sclerosis, cognitive impairment, kidney disease, hypertension, DVT presented to the emergency department today after having a seizure at his long-term. Patient is a chronic long-term resident at [facility]. Around 0 this evening he had what was described as a "Grand Mal" seizure, generalized stiffening and shaking. Staff at the long-term were unable to get him to respond afterwards so he was sent here for further evaluation. In EMS patient was found to have an axillary temperature of 102 degrees F. Sister who is power of real estate attorney states that he did recently have botox injections in his extremities for contractures and has also had a cough. She reports that after a seizure it usually takes him 1-2 days to return to "normal". Patient does not contribute to history at all. (Joanne Alvarez) - Related Data Home Medications Medication Instructions Recorded Confirmed Amantadine 50mg/5ml 100 mg PEG/G-TUBE Q12H 12/28/17 04/14/20 Ascorbic Acid [Vitamin C] 1,000 mg PEG/G-TUBE Q12H 12/28/17 04/14/20 Cholecalciferol [Vitamin D3 (25 1,000 unit PEG/G-TUBE DAILY 12/28/17 04/14/20 Mcg = 1000 Iu)] Docusate Oral Soln [Colace Oral 200 mg PEG/G-TUBE BID 12/28/17 04/14/20 Soln] Scopolamine 1.5MG/72Hr Patch 1 patch TRANSDERM Q72H 12/28/17 04/14/20 [TransDerm Scop] guaiFENesin [guaiFENesin Oral 200 mg PEG/G-TUBE Q6H PRN 12/28/17 04/14/20 Solution] Furosemide [Lasix] 20 mg PEG/G-TUBE DAILY 05/24/18 04/14/20 Acetaminophen Oral Susp [Tylenol] 320 mg PEG/G-TUBE Q6H PRN 01/26/19 04/14/20 Omeprazole Magnesium [PriLOSEC 20 mg PEG/G-TUBE DAILY 01/26/19 04/14/20 Oral Susp] carBAMazepine [carBAMazepine Oral 300 mg PEG/G-TUBE TID 04/15/19 04/14/20 Susp] Cranberry Fruit Extract [Cranberry] 500 mg PEG/G-TUBE Q12H 06/03/19 04/14/20 Metoprolol Tartrate [Lopressor] 50 mg PEG/G-TUBE Q12H 07/29/19 04/14/20 Oxybutynin Chloride [Ditropan Oral 5 mg PEG/G-TUBE TID 09/08/19 04/14/20 Soln] polyethylene glycoL 3350 [Miralax] 17 gm PEG/G-TUBE HS 09/08/19 04/14/20 Baclofen 5 mg PEG/G-TUBE TID 12/16/19 04/14/20 Ipratropium-Albuterol Nebulize 3 ml INHALATION RT-QID PRN 12/16/19 04/14/20 [Duoneb 0.5 mg-3 mg/3 ml Soln] Albuterol Sulfate [Proair Hfa] 2 puff INHALATION RT-Q4H PRN 04/14/20 04/14/20 guaiFENesin [guaiFENesin Oral 200 mg PEG/G-TUBE DIRECTED 04/14/20 04/14/20 Solution] Previous Rx's Medication Instructions Recorded Aspirin 81 mg PEG/G-TUBE DAILY chew 04/15/20 levETIRAcetam [Keppra] 500 mg PEG/G-TUBE Q12HR tab 04/15/20 Allergies Allergy/AdvReac Type Severity Reaction Status Date / Time meropenem [From Merrem] Allergy Rash/Hives Verified 06/05/20 11:47 Review of Systems ROS Other: All systems not noted in ROS Statement are negative. <Joanne Alvarez - Last Filed: 07/04/20 03:44> ROS Other: All systems not noted in ROS Statement are negative. <Kris Canada - Last Filed: 07/04/20 08:06> ROS Statement: Those systems with pertinent positive or pertinent negative responses have been documented in the HPI. Past Medical History Past Medical History: Deep Vein Thrombosis (DVT), GERD/Reflux, Hypertension, Musculoskeletal Disorder, Pneumonia, Renal Disease Additional Past Medical History / Comment(s): MS, cognitive impariment/ non verbal, NPO-peg tube,DVT-arm , IDC ,INCONT OF BOWEL. contractures. DYSARTHRIA/ANARTHRIA/DYSPHAGIA. BEDBOUND, RACHEL LIFT TO W/C, neurogenic bladder, uti,anemia History of Any Multi-Drug Resistant Organisms: ESBL, MRSA Date of last positivie culture/infection: 09/13/19-MRSA; 11/23/19 ESBL-E.coli MDRO Source:: Broch lavage-Mrsa; Urine -ESBL Additional Past Surgical History / Comment(s): PEG TUBE, HX OF GASTROSTOMY, Past Anesthesia/Blood Transfusion Reactions: Unable to Obtain Past Psychological History: Depression Smoking Status: Unknown if ever smoked Past Alcohol Use History: Unable to Obtain Past Drug Use History: Unable to Obtain - Past Family History Father Family Medical History: Unable to Obtain Additional Family Medical History / Comment(s): patient is nonverbal Mother Family Medical History: Unable to Obtain Additional Family Medical History / Comment(s): patient is nonverbal <Joanne Alvarez - Last Filed: 07/04/20 03:44> General Exam Limitations: no limitations General appearance: obtunded, other (This is a thin-appearing, ill-appearing adult male patient vital signs upon presentation are temperature 99.2F, pulse 119, respirations 20, blood pressure 129/79, pulse ox 95% on nonrebreather.) Eye exam: Present: PERRL (Sluggish), EOMI. Absent: normal appearance, scleral icterus, conjunctival injection, periorbital swelling Respiratory exam: Present: rhonchi (Inspiratory and expiratory), other. Absent: normal lung sounds bilaterally, respiratory distress, wheezes, rales, stridor Cardiovascular Exam: Present: normal rhythm, tachycardia, normal heart sounds. Absent: systolic murmur, diastolic murmur, rubs, gallop, clicks GI/Abdominal exam: Present: soft, normal bowel sounds, other (PEG tube present). Absent: distended, tenderness, guarding, rebound, rigid Neurological exam: Present: other (Patient is not responding to verbal or painful stimuli.). Absent: alert, oriented X3 Psychiatric exam: Present: normal affect, normal mood Skin exam: Present: warm, dry, intact, normal color. Absent: rash <Joanne Alvarez - Last Filed: 07/04/20 03:44> Course Vital Signs 07/04/20 07/04/20 07/04/20 01:10 01:38 01:39 Temperature 99.2 F Pulse Rate 119 H 122 H Respiratory 20 24 Rate Blood Pressure 129/79 115/61 O2 Sat by Pulse 95 93 L Oximetry Procedures - [place] Protocol (Time Out) Nurse: Iwona Alexander <FeleciaJaime jacobsdoris Gale - Last Filed: 07/04/20 03:44> Medical Decision Making - Lab Data Result diagrams: 07/04/20 01:52 07/04/20 01:52 - Radiology Data Radiology results: report reviewed, image reviewed <Jaime Alvarezina Shahla - Last Filed: 07/04/20 03:44> - Lab Data Result diagrams: 07/04/20 01:52 07/04/20 01:52 <Kris Canada - Last Filed: 07/04/20 08:06> - Medical Decision Making 60-year-old male patient with past medical history significant for advanced multiple sclerosis, cognitive impairment, kidney disease, hypertension, DVT presented to the emergency department today after having a seizure at his long-term. Upon arrival patient is not responding. Physical examination does reveal sluggish pupil response. He is not following commands. Does not respond to verbal or painful stimuli. Patient was given a gram of Keppra, 2 mg of Ativan. Ativan did not change his presentation at all. Patient is also found to be febrile and tachycardic. Chest x-ray did show evidence of bilateral pulmonary infiltrates. CT brain was negative. Urinalysis also shows evidence for infection. He will be started on Zosyn and azithromycin. IV fluids were given. Did discuss results and findings with the patient's power of real estate attorney/sister Dot ([phone]), she reports that after his last few seizures it takes him about 1-2 days to return to his baseline which generally includes tracking with his eyes and illegible sounds. We do not have neurology coverage at this time so patient will have to be transferred. Dot (sister) refused transfer to [facility] and requested [facility]. I did discuss the case with ER physician Dr. Hickman who accepts the transfer. (Joanne Alvarez) I saw this patient in conjunction with the physician rehab care assistant. I performed independent history and physical exam. Agree with case management. (Kris Canada) - Lab Data Lab Results 07/04/20 07/04/20 07/04/20 Range/Units 01:21 01:52 01:52 WBC 5.9 (3.8-10.6) k/uL RBC 5.48 (4.30-5.90) m/uL Hgb 15.7 (13.0-17.5) gm/dL Hct 48.3 (39.0-53.0) % MCV 88.1 (80.0-100.0) fL MCH 28.7 (25.0-35.0) pg MCHC 32.5 (31.0-37.0) g/dL RDW 14.6 (11.5-15.5) % Plt Count 248 (150-450) k/uL Neutrophils % Not Reportable Neutrophils % (Manual) 41 % Band Neuts % (Manual) 48 % Lymphocytes % Not Reportable Lymphocytes % (Manual) 5 % Monocytes % Not Reportable Monocytes % (Manual) 6 % Eosinophils % Not Reportable Basophils % Not Reportable Metamyelocytes % 2 % Myelocytes % 1 % Neutrophils # Not Reportable Neutrophils # (Manual) 5.20 (1.3-7.7) k/uL Lymphocytes # Not Reportable Lymphocytes # (Manual) 0.30 L (1.0-4.8) k/uL Monocytes # Not Reportable Monocytes # (Manual) 0.35 (0-1.0) k/uL Eosinophils # Not Reportable Basophils # Not Reportable Metamyelocytes # (Man) 0.12 H (0) k/uL Myelocytes # (Manual) 0.06 H (0) k/uL Nucleated RBCs 0 (0-0) /100 WBC Manual Slide Review Performed Toxic Vacuolation Present Polychromasia Present Anisocytosis (manual) Present PT 11.3 (9.0-12.0) sec INR 1.1 (<1.2) APTT 22.8 (22.0-30.0) sec Sodium (137-145) mmol/L Potassium (3.5-5.1) mmol/L Chloride (98-107) mmol/L Carbon Dioxide (22-30) mmol/L Anion Gap mmol/L BUN (9-20) mg/dL Creatinine (0.66-1.25) mg/dL Est GFR (CKD-EPI)AfAm (>60 ml/min/1.73 sqM) Est GFR (CKD-EPI)NonAf (>60 ml/min/1.73 sqM) Glucose (74-99) mg/dL POC Glucose (mg/dL) 130 H (75-99) mg/dL POC [employer] Lawyer ID Iwona Alexander Lactic Ac Sepsis Rflx Plasma Lactic Acid [place] (0.7-2.0) mmol/L Calcium (8.4-10.2) mg/dL Total Bilirubin (0.2-1.3) mg/dL AST (17-59) U/L ALT (4-49) U/L Alkaline Phosphatase (38-126) U/L Total Protein (6.3-8.2) g/dL Albumin (3.5-5.0) g/dL Urine Color Urine Appearance (Clear) Urine pH (5.0-8.0) Ur Specific [place] (1.001-1.035) Urine Protein (Negative) Urine Glucose (UA) (Negative) Urine Ketones (Negative) Urine Blood (Negative) Urine Nitrite (Negative) Urine Bilirubin (Negative) Urine Urobilinogen (<2.0) mg/dL Ur Leukocyte Esterase (Negative) Urine RBC (0-5) /hpf Urine WBC (0-5) /hpf Urine WBC Clumps (None) /hpf Triple Phos Crystals (None) /hpf Amorphous Sediment (None) /hpf Urine Bacteria (None) /hpf Urine Mucus (None) /hpf 07/04/20 07/04/20 07/04/20 Range/Units 01:52 01:52 01:52 WBC (3.8-10.6) k/uL RBC (4.30-5.90) m/uL Hgb (13.0-17.5) gm/dL Hct (39.0-53.0) % MCV (80.0-100.0) fL MCH (25.0-35.0) pg MCHC (31.0-37.0) g/dL RDW (11.5-15.5) % Plt Count (150-450) k/uL Neutrophils % Neutrophils % (Manual) % Band Neuts % (Manual) % Lymphocytes % Lymphocytes % (Manual) % Monocytes % Monocytes % (Manual) % Eosinophils % Basophils % Metamyelocytes % % Myelocytes % % Neutrophils # Neutrophils # (Manual) (1.3-7.7) k/uL Lymphocytes # Lymphocytes # (Manual) (1.0-4.8) k/uL Monocytes # Monocytes # (Manual) (0-1.0) k/uL Eosinophils # Basophils # Metamyelocytes # (Man) (0) k/uL Myelocytes # (Manual) (0) k/uL Nucleated RBCs (0-0) /100 WBC Manual Slide Review Toxic Vacuolation Polychromasia Anisocytosis (manual) PT (9.0-12.0) sec INR (<1.2) APTT (22.0-30.0) sec Sodium 131 L (137-145) mmol/L Potassium (3.5-5.1) mmol/L Chloride 104 (98-107) mmol/L Carbon Dioxide 18 L (22-30) mmol/L Anion Gap 9 mmol/L BUN 24 H (9-20) mg/dL Creatinine 1.20 (0.66-1.25) mg/dL Est GFR (CKD-EPI)AfAm 75 (>60 ml/min/1.73 sqM) Est GFR (CKD-EPI)NonAf 65 (>60 ml/min/1.73 sqM) Glucose 124 H (74-99) mg/dL POC Glucose (mg/dL) (75-99) mg/dL POC [employer] Lawyer ID Lactic Ac Sepsis Rflx Plasma Lactic Acid [place] 2.6 H* (0.7-2.0) mmol/L Calcium 7.6 L (8.4-10.2) mg/dL Total Bilirubin 2.1 H (0.2-1.3) mg/dL AST 99 H (17-59) U/L ALT 21 (4-49) U/L Alkaline Phosphatase 86 (38-126) U/L Total Protein 7.7 (6.3-8.2) g/dL Albumin 3.9 (3.5-5.0) g/dL Urine Color Yellow Urine Appearance Turbid (Clear) Urine pH 8.5 H (5.0-8.0) Ur Specific [place] 1.012 (1.001-1.035) Urine Protein 1+ H (Negative) Urine Glucose (UA) Negative (Negative) Urine Ketones Negative (Negative) Urine Blood Negative (Negative) Urine Nitrite Positive (Negative) Urine Bilirubin Negative (Negative) Urine Urobilinogen <2.0 (<2.0) mg/dL Ur Leukocyte Esterase Large H (Negative) Urine RBC 3 (0-5) /hpf Urine WBC 32 H (0-5) /hpf Urine WBC Clumps Many H (None) /hpf Triple Phos Crystals Many H (None) /hpf Amorphous Sediment Occasional H (None) /hpf Urine Bacteria Moderate H (None) /hpf Urine Mucus Few H (None) /hpf 07/04/20 Range/Units 02:31 WBC (3.8-10.6) k/uL RBC (4.30-5.90) m/uL Hgb (13.0-17.5) gm/dL Hct (39.0-53.0) % MCV (80.0-100.0) fL MCH (25.0-35.0) pg MCHC (31.0-37.0) g/dL RDW (11.5-15.5) % Plt Count (150-450) k/uL Neutrophils % Neutrophils % (Manual) % Band Neuts % (Manual) % Lymphocytes % Lymphocytes % (Manual) % Monocytes % Monocytes % (Manual) % Eosinophils % Basophils % Metamyelocytes % % Myelocytes % % Neutrophils # Neutrophils # (Manual) (1.3-7.7) k/uL Lymphocytes # Lymphocytes # (Manual) (1.0-4.8) k/uL Monocytes # Monocytes # (Manual) (0-1.0) k/uL Eosinophils # Basophils # Metamyelocytes # (Man) (0) k/uL Myelocytes # (Manual) (0) k/uL Nucleated RBCs (0-0) /100 WBC Manual Slide Review Toxic Vacuolation Polychromasia Anisocytosis (manual) PT (9.0-12.0) sec INR (<1.2) APTT (22.0-30.0) sec Sodium (137-145) mmol/L Potassium (3.5-5.1) mmol/L Chloride (98-107) mmol/L Carbon Dioxide (22-30) mmol/L Anion Gap mmol/L BUN (9-20) mg/dL Creatinine (0.66-1.25) mg/dL Est GFR (CKD-EPI)AfAm (>60 ml/min/1.73 sqM) Est GFR (CKD-EPI)NonAf (>60 ml/min/1.73 sqM) Glucose (74-99) mg/dL POC Glucose (mg/dL) (75-99) mg/dL POC [employer] Lawyer ID Lactic Ac Sepsis Rflx Y Plasma Lactic Acid [place] (0.7-2.0) mmol/L Calcium (8.4-10.2) mg/dL Total Bilirubin (0.2-1.3) mg/dL AST (17-59) U/L ALT (4-49) U/L Alkaline Phosphatase (38-126) U/L Total Protein (6.3-8.2) g/dL Albumin (3.5-5.0) g/dL Urine Color Urine Appearance (Clear) Urine pH (5.0-8.0) Ur Specific [place] (1.001-1.035) Urine Protein (Negative) Urine Glucose (UA) (Negative) Urine Ketones (Negative) Urine Blood (Negative) Urine Nitrite (Negative) Urine Bilirubin (Negative) Urine Urobilinogen (<2.0) mg/dL Ur Leukocyte Esterase (Negative) Urine RBC (0-5) /hpf Urine WBC (0-5) /hpf Urine WBC Clumps (None) /hpf Triple Phos Crystals (None) /hpf Amorphous Sediment (None) /hpf Urine Bacteria (None) /hpf Urine Mucus (None) /hpf - Radiology Data CT brain without contrast was obtained. Report was reviewed in its entirety. Impression by Dr. Quintero shows cerebral atrophy and extensive chronic small vessel ischemia. No acute intracranial abnormality. No change. One view x-ray of the chest is obtained. Report was reviewed in its entirety. Impression by Dr. Quintero shows some new infiltrate and atelectasis right and left lung base compared to old exam. No definite heart failure. (Joanne Alvarez) Disposition - Out of Hospital Transfer - Req. Specs Out of Hospital Transfer - Requested Specifics: Other Emergency Center ([facility]) <Joanne Alvarez - Last Filed: 07/04/20 03:44> <Kris Canada - Last Filed: 07/04/20 08:06> Clinical Impression: Seizure, Bilateral pneumonia, Urinary tract infection, SIRS (systemic inflammatory response syndrome) Narrative: prolonged post-ictal period vs status epilepticus (Joanne Alvarez) Disposition: OTHER INSTITUTION NOT DEFINED Condition: Serious Referrals: Matteo Hernandez MD [Primary Care Provider] - 1-2 days
[2020-07-04] MEDS ORDERED: PIPERACILLIN-TAZOBACTAM 3.375 GM in SODIUM CHLORIDE 0.9% 100 ML IVPB SCH (08:00)
[2020-07-05] MEDS ORDERED: AZITHROMYCIN 500 MG in SODIUM CHLORIDE 0.9% 250 ML IVPB SCH (02:54)
== END 2020-07-04 05:14 | disposition other institution (70) ==
LOC: EC 01:07
DX: R56.9 Unspecified convulsions (principal); N39.0 Urinary tract infection, site not specified; J18.9 Pneumonia, unspecified organism; R65.10 Systemic inflammatory response syndrome (SIRS) of non-infectious origin without acute organ dysfunction; R00.0 Tachycardia, unspecified; K21.9 Gastro-esophageal reflux disease without esophagitis; I10 Essential (primary) hypertension; Z86.718 Personal history of other venous thrombosis and embolism; Z86.14 Personal history of Methicillin resistant Staphylococcus aureus infection; Z79.899 Other long term (current) drug therapy; Z88.8 Allergy status to other drugs, medicaments and biological substances; Z93.1 Gastrostomy status; G35 Multiple sclerosis
CPT/HCPCS: 36415; 93005; 80053; 83605; 85025; 85610; 85730; 81001; 87040; 87086; 71045; 70450; 99285; 96365; 96366; 96367; 96368; 96375; J2543; J2060; J0456; J1953

== ENCOUNTER 2020-07-16 10:18 | Inpatient (IN) | payer MEDICARE, OTHER ==
[2020-07-16] MEDS ORDERED: ACETAMINOPHEN SUPPOSITORY 650 MG SUPP RECTAL STA (10:29)
--- NOTE | 2020-07-16 10:40 | ED ---
General Adult HPI - General Chief complaint: Shortness of Breath Stated complaint: fever Time Seen by Provider: 07/16/20 10:18 Source: EMS, RN notes reviewed, old records reviewed Mode of arrival: EMS Limitations: altered mental status - History of Present Illness Initial comments: This is a 60-year-old male who presents emergency Department with complaint is disease. Patient was recently released from [facility] where he was there for seizures per EMS. Patient also recently diagnosed with pneumonia and is on Zosyn at this time. Patient is awake but not able to speak or communicate to us in any way this is his baseline according to EMS. No family or health care provider is with him. EMS states they sent him in because he had some swe lling in his right hand and his heart rate was slightly fast as well as him having a low-grade temp of 99.6 - Related Data Home Medications Medication Instructions Recorded Confirmed Amantadine 50mg/5ml 100 mg PEG/G-TUBE Q12H 12/28/17 07/16/20 Cholecalciferol [Vitamin D3 (25 1,000 unit PEG/G-TUBE DAILY 12/28/17 07/16/20 Mcg = 1000 Iu)] Docusate Oral Soln [Colace Oral 200 mg PEG/G-TUBE Q12H PRN 12/28/17 07/16/20 Soln] guaiFENesin [guaiFENesin Oral 200 mg PEG/G-TUBE Q6H PRN 12/28/17 07/16/20 Solution] Acetaminophen Oral Susp [Tylenol] 320 mg PEG/G-TUBE Q6H PRN 01/26/19 07/16/20 Omeprazole Magnesium [PriLOSEC 20 mg PEG/G-TUBE DAILY 01/26/19 07/16/20 Oral Susp] carBAMazepine [carBAMazepine Oral 100 mg PEG/G-TUBE Q12H 04/15/19 07/16/20 Susp] Cranberry Fruit Extract [Cranberry] 500 mg PEG/G-TUBE Q12H 06/03/19 07/16/20 Metoprolol Tartrate [Lopressor] 75 mg PEG/G-TUBE BID@0900,2100 07/29/19 07/16/20 Oxybutynin Chloride [Ditropan Oral 5 mg PEG/G-TUBE TID@0600,1400,2200 09/08/19 07/16/20 Soln] polyethylene glycoL 3350 [Miralax] 17 gm PEG/G-TUBE HS PRN 09/08/19 07/16/20 Ipratropium-Albuterol Nebulize 3 ml INHALATION RT-QID PRN 12/16/19 07/16/20 [Duoneb 0.5 mg-3 mg/3 ml Soln] Albuterol Sulfate [Proair Hfa] 2 puff INHALATION RT-Q4H PRN 04/14/20 07/16/20 Baclofen [Lioresal] 10 mg PEG/G-TUBE TID@0600,1400,2200 07/16/20 07/16/20 Hydrocerin Cream 1 applic TOPICAL BID@0900,2100 07/16/20 07/16/20 Lacosamide [Vimpat] 150 mg PEG/G-TUBE BID@0900,2100 07/16/20 07/16/20 Piperacillin-Tazobactam [Zosyn] 3.375 gm IVPB TID@0600,1400,2200 07/16/20 07/16/20 Pulmocare 1.5 1,105 ml PEG/G-TUBE DIRECTED 07/16/20 07/16/20 Vancomycin 1,500 mg IV Q24HR 07/16/20 07/16/20 levETIRAcetam [levETIRAcetam Oral 200 mg PEG/G-TUBE BID@0900,2100 07/16/20 07/16/20 Soln] Previous Rx's Medication Instructions Recorded Aspirin 81 mg PEG/G-TUBE DAILY chew 04/15/20 Allergies Allergy/AdvReac Type Severity Reaction Status Date / Time meropenem [From Merrem] Allergy Rash/Hives Verified 07/16/20 11:01 Review of Systems ROS Statement: Those systems with pertinent positive or pertinent negative responses have been documented in the HPI. ROS Other: All systems not noted in ROS Statement are negative. Past Medical History Past Medical History: Deep Vein Thrombosis (DVT), GERD/Reflux, Hypertension, Musculoskeletal Disorder, Pneumonia, Renal Disease Additional Past Medical History / Comment(s): MS, cognitive impariment/ non verbal, NPO-peg tube,DVT-arm , IDC ,INCONT OF BOWEL. contractures. DYSARTHRIA/AN ARTHRIA/DYSPHAGIA. BEDBOUND, RACHEL LIFT TO W/C, neurogenic bladder, uti,anemia History of Any Multi-Drug Resistant Organisms: ESBL, MRSA Date of last positivie culture/infection: 09/13/19-MRSA; 11/23/19 ESBL-E.coli MDRO Source:: Broch lavage-Mrsa; Urine -ESBL Additional Past Surgical History / Comment(s): PEG TUBE, HX OF GASTROSTOMY, Past Anesthesia/Blood Transfusion Reactions: Unable to Obtain Past Psychological History: Depression Smoking Status: Smoker, current status unknown Past Alcohol Use History: None Reported Past Drug Use History: None Reported - Past Family History Father Family Medical History: Unable to Obtain Additional Family Medical History / Comment(s): patient is nonverbal Mother Family Medical History: Unable to Obtain Additional Family Medical History / Comment(s): patient is nonverbal General Exam - General Exam Comments Initial Comments: GENERAL: Patient is staring straight does not appear to be in any respiratory distress or any distress at THIS time ENT: Unable to assess patient's range of motion of his neck. EYES: The sclera were anicteric and conjunctiva were pink and moist. Extraocular movements were intact and pupils were equal round and reactive to light. Eyelids were unremarkable. PULMONARY: Patient has crackles on the left. CARDIOVASCULAR: Patient is tachycardic at 100 beats a minute ABDOMEN: Soft and nontender with normal bowel sounds. No palpable organomegaly was noted. There is no palpable pulsatile mass. There is a PEG tube placed SKIN: Skin is clear with no lesions or rashes and otherwise unremarkable. NEUROLOGIC: Patient is awake but not alert or oriented. Unable to assess the rest of his neurological exam because he is unable to follow any commands. MUSCULOSKELETAL: Patient is not appear to feel to move his extremities. Legs are contracted. LYMPHATICS: No significant lymphadenopathy is noted PSYCHIATRIC: Unable to assess Limitations: altered mental status Course Vital Signs 07/16/20 07/16/20 10:20 11:40 Temperature 100.8 F H Pulse Rate 104 H Respiratory 16 18 Rate Blood Pressure 140/96 O2 Sat by Pulse 96 Oximetry Medical Decision Making - Medical Decision Making EKG shows sinus tachycardia at 105 bpm AK interval 222 QRS is 78 QT interval 340 QTC is 449 per patient's EKG shows no ST segment elevation or depression. Chest x-ray showed pulmonary edema I gave the patient Lasix. I spoke with the [facility] agreed to admit the patient admitted the patient wrote admitting orders. - Lab Data Result diagrams: 07/16/20 10:35 07/16/20 10:35 Lab Results 07/16/20 07/16/20 07/16/20 Range/Units 10:35 10:35 10:35 WBC 9.1 (3.8-10.6) k/uL RBC 3.74 L (4.30-5.90) m/uL Hgb 10.4 L D (13.0-17.5) gm/dL Hct 33.2 L (39.0-53.0) % MCV 88.8 (80.0-100.0) fL MCH 27.9 (25.0-35.0) pg MCHC 31.4 (31.0-37.0) g/dL RDW 15.8 H (11.5-15.5) % Plt Count 775 H D (150-450) k/uL Neutrophils % 76 % Lymphocytes % 13 % Monocytes % 6 % Eosinophils % 3 % Basophils % 0 % Neutrophils # 6.9 (1.3-7.7) k/uL Lymphocytes # 1.2 (1.0-4.8) k/uL Monocytes # 0.6 (0-1.0) k/uL Eosinophils # 0.2 (0-0.7) k/uL Basophils # 0.0 (0-0.2) k/uL Hypochromasia Slight PT 10.2 (9.0-12.0) sec INR 1.0 (<1.2) APTT 26.5 (22.0-30.0) sec Sodium 138 (137-145) mmol/L Potassium 4.0 (3.5-5.1) mmol/L Chloride 108 H (98-107) mmol/L Carbon Dioxide 22 (22-30) mmol/L Anion Gap 8 mmol/L BUN 11 (9-20) mg/dL Creatinine 0.67 (0.66-1.25) mg/dL Est GFR (CKD-EPI)AfAm >90 (>60 ml/min/1.73 sqM) Est GFR (CKD-EPI)NonAf >90 (>60 ml/min/1.73 sqM) Glucose 103 H (74-99) mg/dL Plasma Lactic Acid Taurus (0.7-2.0) mmol/L Calcium 8.2 L (8.4-10.2) mg/dL Total Bilirubin 0.4 (0.2-1.3) mg/dL AST 31 (17-59) U/L ALT 18 (4-49) U/L Alkaline Phosphatase 79 (38-126) U/L Total Protein 6.3 (6.3-8.2) g/dL Albumin 2.7 L (3.5-5.0) g/dL Urine Color Urine Appearance (Clear) Urine pH (5.0-8.0) Ur Specific Bea[place] (1.001-1.035) Urine Protein (Negative) Urine Glucose (UA) (Negative) Urine Ketones (Negative) Urine Blood (Negative) Urine Nitrite (Negative) Urine Bilirubin (Negative) Urine Urobilinogen (<2.0) mg/dL Ur Leukocyte Esterase (Negative) Urine RBC (0-5) /hpf Urine WBC (0-5) /hpf Ur Squamous Epith Cells (0-4) /hpf Urine Bacteria (None) /hpf Urine Mucus (None) /hpf 07/16/20 07/16/20 Range/Units 10:36 11:30 WBC (3.8-10.6) k/uL RBC (4.30-5.90) m/uL Hgb (13.0-17.5) gm/dL Hct (39.0-53.0) % MCV (80.0-100.0) fL MCH (25.0-35.0) pg MCHC (31.0-37.0) g/dL RDW (11.5-15.5) % Plt Count (150-450) k/uL Neutrophils % % Lymphocytes % % Monocytes % % Eosinophils % % Basophils % % Neutrophils # (1.3-7.7) k/uL Lymphocytes # (1.0-4.8) k/uL Monocytes # (0-1.0) k/uL Eosinophils # (0-0.7) k/uL Basophils # (0-0.2) k/uL Hypochromasia PT (9.0-12.0) sec INR (<1.2) APTT (22.0-30.0) sec Sodium (137-145) mmol/L Potassium (3.5-5.1) mmol/L Chloride (98-107) mmol/L Carbon Dioxide (22-30) mmol/L Anion Gap mmol/L BUN (9-20) mg/dL Creatinine (0.66-1.25) mg/dL Est GFR (CKD-EPI)AfAm (>60 ml/min/1.73 sqM) Est GFR (CKD-EPI)NonAf (>60 ml/min/1.73 sqM) Glucose (74-99) mg/dL Plasma Lactic Acid Taurus 0.6 L (0.7-2.0) mmol/L Calcium (8.4-10.2) mg/dL Total Bilirubin (0.2-1.3) mg/dL AST (17-59) U/L ALT (4-49) U/L Alkaline Phosphatase (38-126) U/L Total Protein (6.3-8.2) g/dL Albumin (3.5-5.0) g/dL Urine Color Yellow Urine Appearance Clear (Clear) Urine pH 7.5 (5.0-8.0) Ur Specific [place] 1.016 (1.001-1.035) Urine Protein Trace H (Negative) Urine Glucose (UA) Negative (Negative) Urine Ketones Negative (Negative) Urine Blood Trace H (Negative) Urine Nitrite Negative (Negative) Urine Bilirubin Negative (Negative) Urine Urobilinogen 2.0 (<2.0) mg/dL Ur Leukocyte Esterase Negative (Negative) Urine RBC 18 H (0-5) /hpf Urine WBC 2 (0-5) /hpf Ur Squamous Epith Cells <1 (0-4) /hpf Urine Bacteria Rare H (None) /hpf Urine Mucus Rare H (None) /hpf Disposition Clinical Impression: Acute pulmonary edema Disposition: ADMITTED IP TO THIS HOSP Referrals: Matteo Hernandez MD [Primary Care Provider] - 1-2 days Time of Disposition: 12:21
[2020-07-16] MEDS ORDERED: IBUPROFEN IV 600 MG in SODIUM CHLORIDE 0.9% 250 ML IV ONE (10:45)
[2020-07-16 11:10] LABS: Basophils % (A) 0 %; Eosinophils # (A) 0.2 k/uL (0-0.7); Eosinophils % (A) 3 %; HCT 33.2 % (39.0-53.0); Hypochromasia Slight; Lymphocytes # (A) 1.2 k/uL (1.0-4.8); Lymphocytes % (A) 13 %; MCH 27.9 pg (25.0-35.0); MCHC 31.4 g/dL (31.0-37.0); MCV 88.8 fL (80.0-100.0); Mean Platelet Volume 7.8; Monocytes # (A) 0.6 k/uL (0-1.0); Monocytes % (A) 6 %; Neutrophils # (A) 6.9 k/uL (1.3-7.7); Neutrophils % (A) 76 %; RBC 3.74 m/uL (4.30-5.90); RDW 15.8 % (11.5-15.5); WBC 9.1 k/uL (3.8-10.6)
[2020-07-16 11:15] LABS: ALT 18 U/L (4-49); AST 31 U/L (17-59); African American GFR (CKD) >90 (>60 ml/min/1.73 sqM); Albumin 2.7 g/dL (3.5-5.0); Alkaline Phosphatase 79 U/L (38-126); Anion Gap 8 mmol/L; Blood Urea Nitrogen 11 mg/dL (9-20); Calcium 8.2 mg/dL (8.4-10.2); Carbon Dioxide 22 mmol/L (22-30); Chloride 108 mmol/L (98-107); Glucose 103 mg/dL (74-99); Non-African American GFR(CKD) >90 (>60 ml/min/1.73 sqM); Sodium 138 mmol/L (137-145); Total Bilirubin 0.4 mg/dL (0.2-1.3); Total Protein 6.3 g/dL (6.3-8.2)
[2020-07-16 11:20] LABS: HGB 10.4 gm/dL (13.0-17.5); Partial Thromboplastin Time 26.5 sec (22.0-30.0); Prothrombin Time 10.2 sec (9.0-12.0)
[2020-07-16 11:21] LABS: Platelet Count 775 k/uL (150-450)
--- NOTE | 2020-07-16 12:02 | XR ---
EXAMINATION TYPE: XR chest 1V portable DATE OF EXAM: 07/16/2020 COMPARISON: 07/04/2020 INDICATION: Fever TECHNIQUE: Single frontal view of the chest is obtained. FINDINGS: The heart size is normal. The pulmonary vasculature is normal. There are are diffuse increased lung markings bilaterally. Correlate for pulmonary edema and volume o verload may be slightly more focal in the right lower lobe. IMPRESSION: 1. Findings suggestive for pulmonary edema and volume overload. Some focal atypical pulmonary edema o r pneumonia may be in the right lower lobe. Follow-up is recommended
[2020-07-16 12:07] LABS: Appearance,Urine Clear (Clear); Bacteria,Urine Rare /hpf; Bilirubin,Urine Negative (Negative); Blood,Urine Trace (Negative); Color,Urine Yellow; Glucose,Urine (UA) Negative (Negative); Ketones,Urine Negative (Negative); Leukocyte Esterase,Urine Negative (Negative); Mucus,Urine Rare /hpf; Nitrite,Urine Negative (Negative); PH, Urine 7.5 (5.0-8.0); Protein,Urine Trace (Negative); RBC,Urine 18 /hpf (0-5); Specific Gravity,Urine 1.016 (1.001-1.035); Squamous Epithelial Cell,Urine <1 /hpf (0-4); WBC,Urine 2 /hpf (0-5)
[2020-07-16] MEDS ORDERED: FUROSEMIDE 10 MG/ML 4 ML VIAL IV STA (12:16)
[2020-07-16] MEDS ORDERED: cefTRIAXone IN SWFI 1,000 MG/10 ML SYRINGE IVP STA (12:17)
[2020-07-16] MEDS ORDERED: PROPOFOL 10 MG/ML 20 ML VIAL IV ONE (13:51)
[2020-07-16] MEDS ORDERED: SUCCINYLCHOLINE CHLORIDE VIAL 200 MG/10 ML VIAL IV ONE (13:51)
--- NOTE | 2020-07-16 15:03 | P.HPIM ---
History of Present Illness This is a pleasant 59 years old male with multiple medical problems presents with altered mental status secondary to pneumonia, patient has multiple admissions secondary to UTI and aspiration pneumonia. Other medical problems including multiple sclerosis, cognitive impairment and patient is nonverbal, patient has dysphagia and status post PEG tube, DVT of the arm, urine or bowel incontinence. Presents with fever, confusion and altered mental status. Patient could not provide information was obtained from the staff, records. He has a fever of 100.8 rest of vitals looks stable WBC is relatively elevated at 9.1K but it is within the reference range, hemoglobin 10.4, platelets 775. Versus atypical pulmonary edema versus pneumonia in the right lower lobe Sister at bedside and I discussed the case with her and she agrees with the management plan. We will start antibiotics, hold feeding for 24 hours Review of Systems N/a Past Medical History Past Medical History: Deep Vein Thrombosis (DVT), GERD/Reflux, Hypertension, Musculoskeletal Disorder, Neurologic Disorder, Pneumonia, Skin Disorder Additional Past Medical History / Comment(s): Pt recently hospitalized at [facility] for extensive stay with seizure/pneumonia/UTI with sepsis/respirtory failure/vented-Pt diagnosed with multiple sclerosis at the age of 20 yrs, cognitive impairment, sister states when he is feeling well he could speak a few words/nod head appropriately/give thumbs up/roll eyes but when ill is nonverbal, pt has dysphagia/NPO with peg tube, contractures, trigeminal neuralgia, dysarthria/anarthria/neurogenic bladder with IDC-UTIs/sepsis, multiple pneumon ias, recent seizure-last one 07/03/20, incontinent of stool, pt has had decubitus ulcer coccyx-sister unsure of skin condition at this time, past anemia r/t heparin/epistaxiis which involved nasal packing/transfusions, DVT bilateral arms. History of Any Multi-Drug Resistant Organisms: ESBL, MRSA Date of last positivie culture/infection: 09/13/19-MRSA; 11/23/19 ESBL-E.coli MDRO Source:: Broch lavage-Mrsa; Urine -ESBL Past Surgical History: Tonsillectomy Additional Past Surgical History / Comment(s): Gastrostomy, peg tube, I&D coccyx decubitius, bilateral lasik eye surgery. Past Anesthesia/Blood Transfusion Reactions: No Reported Reaction Additional Past Anesthesia/Blood Transfusion Reaction / Comment(s): Pt has received blood in past without reaction. Smoking Status: Never smoker - Past Family History Father Family Medical History: Myocardial Infarction ([place]) Additional Family Medical History / Comment(s): Father is at the age of 86 yrs while on heparin/bled, he had a mild [place] Mother Family Medical History: Hypertension, Myocardial Infarction ([place]) Additional Family Medical History / Comment(s): Mother of a [place] at the age of 73 yrs. Medications and Allergies Home Medications Medication Instructions Recorded Confirmed Type Amantadine 50mg/5ml 100 mg PEG/G-TUBE Q12H 12/28/17 07/16/20 History Cholecalciferol [Vitamin D3 (25 1,000 unit PEG/G-TUBE DAILY 12/28/17 07/16/20 History Mcg = 1000 Iu)] Docusate Oral Soln [Colace Oral 200 mg PEG/G-TUBE Q12H PRN 12/28/17 07/16/20 History Soln] guaiFENesin [guaiFENesin Oral 200 mg PEG/G-TUBE Q6H PRN 12/28/17 07/16/20 History Solution] Acetaminophen Oral Susp [Tylenol] 320 mg PEG/G-TUBE Q6H PRN 01/26/19 07/16/20 History Omeprazole Magnesium [PriLOSEC 20 mg PEG/G-TUBE DAILY 01/26/19 07/16/20 History Oral Susp] carBAMazepine [carBAMazepine Oral 100 mg PEG/G-TUBE Q12H 04/15/19 07/16/20 History Susp] Cranberry Fruit Extract [Cranberry] 500 mg PEG/G-TUBE Q12H 06/03/19 07/16/20 History Metoprolol Tartrate [Lopressor] 75 mg PEG/G-TUBE BID@0900,2100 07/29/19 07/16/20 History Oxybutynin Chloride [Ditropan Oral 5 mg PEG/G-TUBE TID@0600,1400,2200 09/08/19 07/16/20 History Soln] polyethylene glycoL 3350 [Miralax] 17 gm PEG/G-TUBE HS PRN 09/08/19 07/16/20 History Ipratropium-Albuterol Nebulize 3 ml INHALATION RT-QID PRN 12/16/19 07/16/20 History [Duoneb 0.5 mg-3 mg/3 ml Soln] Albuterol Sulfate [Proair Hfa] 2 puff INHALATION RT-Q4H PRN 04/14/20 07/16/20 History Aspirin 81 mg PEG/G-TUBE DAILY chew 04/15/20 07/16/20 Rx Baclofen [Lioresal] 10 mg PEG/G-TUBE TID@0600,1400,2200 07/16/20 07/16/20 History Hydrocerin Cream 1 applic TOPICAL BID@0900,2100 07/16/20 07/16/20 History Lacosamide [Vimpat] 150 mg PEG/G-TUBE BID@0900,2100 07/16/20 07/16/20 History Piperacillin-Tazobactam [Zosyn] 3.375 gm IVPB TID@0600,1400,2200 07/16/20 07/16/20 History Pulmocare 1.5 1,105 ml PEG/G-TUBE DIRECTED 07/16/20 07/16/20 History Vancomycin 1,500 mg IV Q24HR 07/16/20 07/16/20 History levETIRAcetam [levETIRAcetam Oral 200 mg PEG/G-TUBE BID@0900,2100 07/16/20 07/16/20 History Soln] Allergies Allergy/AdvReac Type Severity Reaction Status Date / Time meropenem [From Merrem] Allergy Rash/Hives Verified 07/16/20 11:01 Physical Exam Vitals: Vital Signs Temp Pulse Pulse Resp BP BP Pulse Ox 07/16/20 14:42 90 16 133/79 98 07/16/20 13:18 100.1 F H 89 18 145/96 100 07/16/20 12:40 100.1 F H 89 18 152/98 100 07/16/20 11:40 18 07/16/20 10:20 100.8 F H 104 H 16 140/96 96 Intake and Output 07/15/20 07/16/20 07/16/20 22:59 06:59 14:59 Other: Weight 83.915 kg -GENERAL: The patient is alert and nonverbal. Does not look in respiratory distress. Loss of weight HEENT: Pupils are round and equally reacting to light. EOMI. No scleral icterus. No conjunctival pallor. Normocephalic, atraumatic. No pharyngeal erythema. No thyromegaly. CARDIOVASCULAR: S1 and S2 present. No murmurs, rubs, or gallops. -PULMONARY: Chest is clear to auscultation, bilateral good harsh breath sounds with secretions more on the right side ABDOMEN: Soft, nontender, nondistended, normoactive bowel sounds. No palpable o rganomegaly. MUSCULOSKELETAL: No joint swelling or deformity. EXTREMITIES: No cyanosis, clubbing, or pedal edema. NEUROLOGICAL: Gross neurological examination did not reveal any focal deficits. SKIN: No rashes. no petechiae. Results CBC & Chem 7: 07/16/20 10:35 07/16/20 10:35 Labs: Abnormal Lab Results - Last 24 Hours (Table) 07/16/20 07/16/20 07/16/20 Range/Units 10:35 10:35 10:36 RBC 3.74 L (4.30-5.90) m/uL Hgb 10.4 L D (13.0-17.5) gm/dL Hct 33.2 L (39.0-53.0) % RDW 15.8 H (11.5-15.5) % Plt Count 775 H D (150-450) k/uL Chloride 108 H (98-107) mmol/L Glucose 103 H (74-99) mg/dL Plasma Lactic Acid Taurus 0.6 L (0.7-2.0) mmol/L Calcium 8.2 L (8.4-10.2) mg/dL Albumin 2.7 L (3.5-5.0) g/dL Urine Protein (Negative) Urine Blood (Negative) Urine RBC (0-5) /hpf Urine Bacteria (None) /hpf Urine Mucus (None) /hpf 07/16/20 Range/Units 11:30 RBC (4.30-5.90) m/uL Hgb (13.0-17.5) gm/dL Hct (39.0-53.0) % RDW (11.5-15.5) % Plt Count (150-450) k/uL Chloride (98-107) mmol/L Glucose (74-99) mg/dL Plasma Lactic Acid Taurus (0.7-2.0) mmol/L Calcium (8.4-10.2) mg/dL Albumin (3.5-5.0) g/dL Urine Protein Trace H (Negative) Urine Blood Trace H (Negative) Urine RBC 18 H (0-5) /hpf Urine Bacteria Rare H (None) /hpf Urine Mucus Rare H (None) /hpf Thrombosis Risk Factor Assmnt - Choose All That Apply Any of the Below Risk Factors Present?: Yes Each Factor Represents 1 point: Medical pt on bed rest, Obesity (BMI >25), Sepsis (< 1month), Serious lung disease incl. pneumonia (< 1month) Other Risk Factors: Yes Each Risk Factor Represents 2 Points: Age 61-74 years, Patient confined to bed Other congenital or acquired thrombophilia - If yes, enter type in comment: No Thrombosis Risk Factor Assessment Total Risk Factor Score: 8 Thrombosis Risk Factor Assessment Level: High Risk Assessment and Plan Assessment: aspiration pneumonitis Metabolic encephalopathy secondary to above multiple sclerosis Moderate to severe coronary protein malnutrition History of DVT History of GERD Hypertension Gait dysfunction secondary to multiple sclerosis Osteoarthritis Plan: This is a pleasant 60 years old male who presents with respiration pneumonia. Start Zosyn and consult infectious disease. Follow-up culture results. hold feeding for 24 hours. Cardiology is been consulted from ED 100 form the recommendation Labs and medication were reviewed.. Continue same treatment. Continue with symptomatic treatment. Resume home medication. Monitor lytes and vitals. DVT and GI prophylaxis. Further recommendationsas per clinical course of the patient DVT prophylaxis: Subcutaneous heparin GI Prophylaxis: Pepcid Prognosis is guarded
[2020-07-16] MEDS: carBAMazepine 200 MG TAB PEG/G-TUBE SCH (16:34)
[2020-07-16] MEDS: HEPARIN SODIUM,PORCINE 5,000 UNIT/ML 1 ML VIAL SQ SCH ×2 (16:35→20:29)
[2020-07-16] MEDS: NITROGLYCERIN OINT 1 INCH/GM PACKET TOPICAL SCH ×3 (16:35→20:29)
[2020-07-16] MEDS: PIPERACILLIN-TAZOBACTAM 3.375 GM in SODIUM CHLORIDE 0.9% 100 ML IVPB SCH ×2 (16:35→23:40)
[2020-07-16] MEDS ORDERED: ACETAMINOPHEN TAB 325 MG TAB PO PRN (19:41)
[2020-07-16 20:15] LABS: Glucose,Whole Blood 82 mg/dL (75-99)
[2020-07-16] MEDS: BACLOFEN 10 MG TAB PEG/G-TUBE SCH (20:23)
[2020-07-16] MEDS: levETIRAcetam ORAL SOLN 500 MG/5 ML CUP PEG/G-TUBE SCH (20:23)
[2020-07-16] MEDS: METOPROLOL TARTRATE 50 MG TAB PEG/G-TUBE SCH (20:23)
[2020-07-16] MEDS: LACOSAMIDE 150 MG TABLET PEG/G-TUBE SCH (20:23)
[2020-07-16] MEDS: FAMOTIDINE 20 MG/2 ML VIAL IV SCH (20:24)
[2020-07-16] MEDS: FUROSEMIDE 10 MG/ML 4 ML VIAL IV SCH (20:24)
--- NOTE | 2020-07-16 23:38 | P.CONS ---
History of Present Illness - Reason for Consult Consult date: 07/16/20 Pneumonia Requesting physician: Avila E Sheet - Chief Complaint Low-grade fever x 1 day - History of Present Illness Patient is 60-year-old male with a past medical history significant for MS in this patient who is bedbound and did have multiple admission to the hospital for UTI and pneumonia is apparently the patient was recently admitted at another facility for pneumonia. Patient was on the vent and was recently discharged back to detention yesterday patient did have right upper arm PICC line and apparently the patient was receiving vancomycin and Zosyn on discharge from the hospital the patient has not been brought to the [facility] ER from detention with concern for increased swelling in his right hand and the patient was noticed to be tachycardic and atenolol refilled for 99.6 on arrival to the ER the patient did have fever off 100.8F the patient did have a normal white count with no lymphopenia, liver enzymes are normal CRP was elevated UA was negative patient did have a chest x-ray suggestive pulmonary edema and volume overload with some atypical pulmonary edema or pneumonia in the right lower lobe patient has been admitted to the hospital infectious disease was consulted for further management of antibiotic therapy patient was noticed to have a congested cough however he was unable to void any history so most information has been obtained from review the chart and talking to nursing staff Review of Systems Positive points has been mentioned in HPI complete review could not be obtained because of his underlying mental status Past Medical History Past Medical History: Deep Vein Thrombosis (DVT), GERD/Reflux, Hypertension, Musculoskeletal Disorder, Neurologic Disorder, Pneumonia, Skin Disorder Additional Past Medical History / Comment(s): Pt recently hospitalized at [facility] for extensive stay with seizure/pneumonia/UTI with sepsis/respirtory failure/vented-Pt diagnosed with multiple sclerosis at the age of 20 yrs, cogn itive impairment, sister states when he is feeling well he could speak a few words/nod head appropriately/give thumbs up/roll eyes but when ill is nonverbal, pt has dysphagia/NPO with peg tube, contractures, trigeminal neuralgia, dysarthria/anarthria/neurogenic bladder with IDC-UTIs/sepsis, multiple pneumonias, recent seizure-last one 07/03/20, incontinent of stool, pt has had decubitus ulcer coccyx-sister unsure of skin condition at this time, past anemia r/t heparin/epistaxiis which involved nasal packing/transfusions, DVT bilateral arms. 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 Past Anesthesia/Blood Transfusion Reactions: No Reported Reaction Additional Past Anesthesia/Blood Transfusion Reaction / Comm: Pt has received blood in past without reaction. Smoking Status: Never smoker - Past Family History Father Family Medical History: Myocardial Infarction (ND) Additional Family Medical History / Comment(s): Father is at the age of 86 yrs while on heparin/bled, he had a mild ND Mother Family Medical History: Hypertension, Myocardial Infarction (ND) Additional Family Medical History / Comment(s): Mother of a ND at the age of 73 yrs. Medications and Allergies Home Medications Medication Instructions Recorded Confirmed Type Amantadine 50mg/5ml 100 mg PEG/G-TUBE Q12H 12/28/17 07/16/20 History Cholecalciferol [Vitamin D3 (25 1,000 unit PEG/G-TUBE DAILY 12/28/17 07/16/20 History Mcg = 1000 Iu)] Docusate Oral Soln [Colace Oral 200 mg PEG/G-TUBE Q12H PRN 12/28/17 07/16/20 History Soln] guaiFENesin [guaiFENesin Oral 200 mg PEG/G-TUBE Q6H PRN 12/28/17 07/16/20 History Solution] Acetaminophen Oral Susp [Tylenol] 320 mg PEG/G-TUBE Q6H PRN 01/26/19 07/16/20 History Omeprazole Magnesium [PriLOSEC 20 mg PEG/G-TUBE DAILY 01/26/19 07/16/20 History Oral Susp] carBAMazepine [carBAMazepine Oral 100 mg PEG/G-TUBE Q12H 04/15/19 07/16/20 History Susp] Cranberry Fruit Extract [Cranberry] 500 mg PEG/G-TUBE Q12H 06/03/19 07/16/20 History Metoprolol Tartrate [Lopressor] 75 mg PEG/G-TUBE BID@0900,2100 07/29/19 07/16/20 History Oxybutynin Chloride [Ditropan Oral 5 mg PEG/G-TUBE TID@0600,1400,2200 09/08/19 07/16/20 History Soln] polyethylene glycoL 3350 [Miralax] 17 gm PEG/G-TUBE HS PRN 09/08/19 07/16/20 History Ipratropium-Albuterol Nebulize 3 ml INHALATION RT-QID PRN 12/16/19 07/16/20 History [Duoneb 0.5 mg-3 mg/3 ml Soln] Albuterol Sulfate [Proair Hfa] 2 puff INHALATION RT-Q4H PRN 04/14/20 07/16/20 History Aspirin 81 mg PEG/G-TUBE DAILY chew 04/15/20 07/16/20 Rx Baclofen [Lioresal] 10 mg PEG/G-TUBE TID@0600,1400,2200 07/16/20 07/16/20 History Hydrocerin Cream 1 applic TOPICAL BID@0900,209907/16/20 07/16/20 History Lacosamide [Vimpat] 150 mg PEG/G-TUBE BID@0900,2100 07/16/20 07/16/20 History Piperacillin-Tazobactam [Zosyn] 3.375 gm IVPB TID@0600,1400,2200 07/16/20 07/16/20 History Pulmocare 1.5 1,105 ml PEG/G-TUBE DIRECTED 07/16/20 07/16/20 History Vancomycin 1,500 mg IV Q24HR 07/16/20 07/16/20 History levETIRAcetam [levETIRAcetam Oral 200 mg PEG/G-TUBE BID@0900,2100 07/16/20 07/16/20 History Soln] Allergies Allergy/AdvReac Type Severity Reaction Status Date / Time meropenem [From Merrem] Allergy Rash/Hives Verified 07/16/20 11:01 Physical Exam Vitals: Vital Signs Temp Pulse Pulse Resp BP BP Pulse Ox 07/16/20 14:42 90 16 133/79 98 07/16/20 13:18 100.1 F H 89 18 145/96 100 07/16/20 12:40 100.1 F H 89 18 152/98 100 07/16/20 11:40 18 07/16/20 10:20 100.8 F H 104 H 16 140/96 96 Intake and Output 07/15/20 07/16/20 07/16/20 22:59 06:59 14:59 Other: Weight 83.915 kg GENERAL DESCRIPTION: Middle-aged male lying in bed, no distress. No tachypnea or accessory muscle of respiration use. HEENT: Shows Pallor , no scleral icterus. Oral mucous membrane is dry. No pharyngeal erythema or thrush NECK: Trachea central, no thyromegaly. LUNGS: Unlabored breathing. Coarse breath sounds bilaterally. No wheeze or crackle. HEART: S1, S2, regular rate and rhythm. No loud murmur ABDOMEN: Soft, no tenderness , guarding or rigidity, no organomegaly EXTREMITIES: No edema of feet. SKIN: No rash, no masses palpable. NEUROLOGICAL: The patient is awake, however nonverbal and unable to determine orientation Results CBC & Chem 7: 07/16/20 10:35 07/16/20 10:35 Labs: Abnormal Lab Results - Last 24 Hours (Table) 07/16/20 07/16/20 07/16/20 Range/Units 10:35 10:35 10:36 RBC 3.74 L (4.30-5.90) m/uL Hgb 10.4 L D (13.0-17.5) gm/dL Hct 33.2 L (39.0-53.0) % RDW 15.8 H (11.5-15.5) % Plt Count 775 H D (150-450) k/uL Chloride 108 H (98-107) mmol/L Glucose 103 H (74-99) mg/dL Plasma Lactic Acid Taurus 0.6 L (0.7-2.0) mmol/L Calcium 8.2 L (8.4-10.2) mg/dL Albumin 2.7 L (3.5-5.0) g/dL Urine Protein (Negative) Urine Blood (Negative) Urine RBC (0-5) /hpf Urine Bacteria (None) /hpf Urine Mucus (None) /hpf 07/16/20 Range/Units 11:30 RBC (4.30-5.90) m/uL Hgb (13.0-17.5) gm/dL Hct (39.0-53.0) % RDW (11.5-15.5) % Plt Count (150-450) k/uL Chloride (98-107) mmol/L Glucose (74-99) mg/dL Plasma Lactic Acid Taurus (0.7-2.0) mmol/L Calcium (8.4-10.2) mg/dL Albumin (3.5-5.0) g/dL Urine Protein Trace H (Negative) Urine Blood Trace H (Negative) Urine RBC 18 H (0-5) /hpf Urine Bacteria Rare H (None) /hpf Urine Mucus Rare H (None) /hpf Assessment and Plan Assessment: 1- patient presented to hospital with low-grade fever 100.2 Fahrenheit this patient noticed to have a congested cough also noticed to have increased bilirubin fitted with concern for recurrent aspiration pneumonia this patient did have history of recurrent/pneumonia and UTI (1) Aspiration pneumonia Current Visit: No Status: Acute Code(s): J69.0 - PNEUMONITIS DUE TO INHALATION OF FOOD AND VOMIT SNOMED Code(s): 204743305 Plan: 1-Zosyn 3.375 g every 8 hours 2-try to obtain a sputum for Gram stain and culture We will follow on clinical condition and cultures to further adjust medication if needed Thank you for this consultation will follow this patient with you Time with Patient: Greater than 30
[2020-07-17 02:04] LABS: Glucose,Whole Blood 88 mg/dL (75-99)
[2020-07-17] MEDS: carBAMazepine 200 MG TAB PEG/G-TUBE SCH ×2 (03:08→13:00)
[2020-07-17 06:33] LABS: Glucose,Whole Blood 99 mg/dL (75-99)
[2020-07-17] MEDS: BACLOFEN 10 MG TAB PEG/G-TUBE SCH ×3 (06:52→21:54)
[2020-07-17 08:11] LABS: Basophils % (A) 1 %; Eosinophils # (A) 0.2 k/uL (0-0.7); Eosinophils % (A) 2 %; HCT 34.9 % (39.0-53.0); HGB 10.7 gm/dL (13.0-17.5); Hypochromasia Slight; Lymphocytes # (A) 1.1 k/uL (1.0-4.8); Lymphocytes % (A) 14 %; MCH 27.8 pg (25.0-35.0); MCHC 30.8 g/dL (31.0-37.0); MCV 90.3 fL (80.0-100.0); Mean Platelet Volume 7.7; Monocytes # (A) 0.6 k/uL (0-1.0); Monocytes % (A) 7 %; Neutrophils # (A) 6.1 k/uL (1.3-7.7); Neutrophils % (A) 75 %; Platelet Count 758 k/uL (150-450); RBC 3.87 m/uL (4.30-5.90); RDW 15.6 % (11.5-15.5); WBC 8.2 k/uL (3.8-10.6)
[2020-07-17 08:30] LABS: African American GFR (CKD) >90 (>60 ml/min/1.73 sqM); Anion Gap 9 mmol/L; Blood Urea Nitrogen 11 mg/dL (9-20); Calcium 8.4 mg/dL (8.4-10.2); Carbon Dioxide 20 mmol/L (22-30); Chloride 109 mmol/L (98-107); Glucose 101 mg/dL (74-99); Non-African American GFR(CKD) >90 (>60 ml/min/1.73 sqM); Potassium 4.2 mmol/L (3.5-5.1); Sodium 138 mmol/L (137-145)
[2020-07-17] MEDS: LACOSAMIDE 150 MG TABLET PEG/G-TUBE SCH ×2 (09:33→21:54)
[2020-07-17] MEDS: METOPROLOL TARTRATE 50 MG TAB PEG/G-TUBE SCH ×2 (09:33→21:54)
[2020-07-17] MEDS: FAMOTIDINE 20 MG/2 ML VIAL IV SCH ×2 (09:34→21:53)
[2020-07-17] MEDS: FUROSEMIDE 10 MG/ML 4 ML VIAL IV SCH ×2 (09:34→21:52)
[2020-07-17] MEDS: HEPARIN SODIUM,PORCINE 5,000 UNIT/ML 1 ML VIAL SQ SCH ×2 (09:34→21:53)
[2020-07-17] MEDS: NITROGLYCERIN OINT 1 INCH/GM PACKET TOPICAL SCH ×4 (09:35→21:54)
[2020-07-17] MEDS: PIPERACILLIN-TAZOBACTAM 3.375 GM in SODIUM CHLORIDE 0.9% 100 ML IVPB SCH ×2 (09:35→16:48)
[2020-07-17] MEDS: levETIRAcetam ORAL SOLN 500 MG/5 ML CUP PEG/G-TUBE SCH ×2 (09:36→22:15)
[2020-07-17] MEDS: ASPIRIN 81 MG PEG/G-TUBE SCH (09:36)
--- NOTE | 2020-07-17 10:50 | P.PN ---
Subjective This is a pleasant 59 years old male with multiple medical problems presents with altered mental status secondary to pneumonia, patient has multiple admissions secondary to UTI and aspiration pneumonia. Other medical problems including multiple sclerosis, cognitive impairment and patient is nonverbal, patient has dysphagia and status post PEG tube, DVT of the arm, urine or bowel incontinence. Presents with fever, confusion and altered mental status. Patient could not provide information was obtained from the staff, records. He has a fever of 100.8 rest of vitals looks stable WBC is relatively elevated at 9.1K but it is within the reference range, hemoglobin 10.4, platelets 775. Versus atypical pulmonary edema versus pneumonia in the right lower lobe Sister at bedside and I discussed the case with her and she agrees with the management plan. We will start antibiotics, hold feeding for 24 hours 07/17/2020 Patient lying in bed comfortable, breathing quietly. Nonverbal at baseline. No fever today compared to low-grade fever yesterday. No leukocytosis. Sputum culture is requested. Patient is covered currently with [facility] review of systems: N/a Active Medications Generic Name Dose Route Start Last Admin Trade Name Freq PRN Reason Stop Dose Admin Acetaminophen 650 mg 07/16/20 19:41 Acetaminophen Tab 325 Mg Tab PO Q6HR PRN Fever and/ or Pain Albuterol Sulfate 2.5 mg 07/16/20 14:54 Albuterol Nebulized 2.5 Mg/3 Ml INHALATION RT-Q4H PRN Shortness Of Breath Aspirin 81 mg 07/17/20 09:00 07/17/20 09:36 Aspirin 81 Mg PEG/G-TUBE Not Given DAILY LUPE Baclofen 10 mg 07/16/20 22:00 07/17/20 06:52 Baclofen 10 Mg Tab PEG/G-TUBE 10 mg TID@0600,1400,2200 LUPE Administration Carbamazepine 100 mg 07/16/20 15:00 07/17/20 03:08 Carbamazepine 200 Mg Tab PEG/G-TUBE 100 mg Q12H LUPE Administration Famotidine 10 mg 07/16/20 21:00 07/17/20 09:34 Famotidine 20 Mg/2 Ml Vial IV 10 mg Q12HR LUPE Administration Furosemide 40 mg 07/16/20 21:00 07/17/20 09:34 Furosemide 10 Mg/Ml 4 Ml Vial IV 40 mg Q12H LUPE Administration Heparin Sodium (Porcine) 5,000 unit 07/16/20 15:00 07/17/20 09:34 Heparin Sodium,Porcine 5,000 Unit/Ml 1 Ml Vial SQ 5,000 unit Q12HR LUPE Administration Piperacillin Sod/Tazobactam 100 mls @ 25 mls/hr 07/16/20 16:00 07/17/20 09:35 Sod 3.375 gm/ Sodium Chloride IVPB 25 mls/hr Q8HR LUPE Administration Lacosamide 150 mg 07/16/20 21:00 07/17/20 09:33 Lacosamide 150 Mg Tablet PEG/G-TUBE 150 mg BID@0900,2100 [facility] Administration Levetiracetam 200 mg 07/16/20 21:00 07/17/20 09:36 Levetiracetam Oral Soln 500 Mg/5 Ml Cup PEG/G-TUBE 200 mg BID@0900,2099 [facility] Administration Metoprolol Tartrate 75 mg 07/16/20 21:00 07/17/20 09:33 Metoprolol Tartrate 50 Mg Tab PEG/G-TUBE 75 mg BID@0900,2099 [facility] Administration Nitroglycerin 1 inch 07/16/20 13:00 07/17/20 09:35 Nitroglycerin Oint 1 Inch/Gm Packet TOPICAL 1 inch QID LUPE Administration Objective - Vital Signs Vital signs: Vital Signs Temp 98 F 07/17/20 03:34 Pulse 98 07/17/20 03:34 Resp 24 07/17/20 03:34 BP 129/84 07/17/20 03:34 Pulse Ox 95 07/17/20 03:34 Intake & Output 07/16/20 07/17/20 07/17/20 18:59 06:59 18:59 Intake Total 0 Output Total 1800 Balance 0 -1800 Weight 60.5 kg 58.5 kg Intake: Oral 0 Output: Urine 1800 Other: Voiding Method Indwelling Catheter Indwelling Catheter # Bowel Movements 0 - Exam -GENERAL: The patient is alert and nonverbal. Does not look in respiratory distress. Loss of weight HEENT: Pupils are round and equally reacting to light. EOMI. No scleral icterus. No conjunctival pallor. Normocephalic, atraumatic. No pharyngeal erythema. No thyromegaly. CARDIOVASCULAR: S1 and S2 present. No murmurs, rubs, or gallops. -PULMONARY: Chest is clear to auscultation, bilateral good harsh breath sounds with secretions more on the right side ABDOMEN: Soft, nontender, nondistended, normoactive bowel sounds. No palpable organomegaly. MUSCULOSKELETAL: No joint swelling or deformity. EXTREMITIES: No cyanosis, clubbing, or pedal edema. NEUROLOGICAL: Gross neurological examination did not reveal any focal deficits. SKIN: No rashes. no petechiae. - Labs CBC & Chem 7: 07/17/20 07:28 07/17/20 07:28 Labs: Abnormal Lab Results - Last 24 Hours (Table) 07/16/20 07/16/20 07/16/20 Range/Units 10:35 10:35 10:35 RBC 3.74 L (4.30-5.90) m/uL Hgb 10.4 L D (13.0-17.5) gm/dL Hct 33.2 L (39.0-53.0) % MCHC (31.0-37.0) g/dL RDW 15.8 H (11.5-15.5) % Plt Count 775 H D (150-450) k/uL Chloride 108 H (98-107) mmol/L Carbon Dioxide (22-30) mmol/L Glucose 103 H (74-99) mg/dL Plasma Lactic Acid Taurus (0.7-2.0) mmol/L Calcium 8.2 L (8.4-10.2) mg/dL C-Reactive Protein 36.5 H (<10.0) mg/L Albumin 2.7 L (3.5-5.0) g/dL Urine Protein (Negative) Urine Blood (Negative) Urine RBC (0-5) /hpf Urine Bacteria (None) /hpf Urine Mucus (None) /hpf 07/16/20 07/16/20 07/17/20 Range/Units 10:36 11:30 07:28 RBC 3.87 L (4.30-5.90) m/uL Hgb 10.7 L (13.0-17.5) gm/dL Hct 34.9 L (39.0-53.0) % MCHC 30.8 L (31.0-37.0) g/dL RDW 15.6 H (11.5-15.5) % Plt Count 758 H (150-450) k/uL Chloride (98-107) mmol/L Carbon Dioxide (22-30) mmol/L Glucose (74-99) mg/dL Plasma Lactic Acid Taurus 0.6 L (0.7-2.0) mmol/L Calcium (8.4-10.2) mg/dL C-Reactive Protein (<10.0) mg/L Albumin (3.5-5.0) g/dL Urine Protein Trace H (Negative) Urine Blood Trace H (Negative) Urine RBC 18 H (0-5) /hpf Urine Bacteria Rare H (None) /hpf Urine Mucus Rare H (None) /hpf 07/17/20 Range/Units 07:28 RBC (4.30-5.90) m/uL Hgb (13.0-17.5) gm/dL Hct (39.0-53.0) % MCHC (31.0-37.0) g/dL RDW (11.5-15.5) % Plt Count (150-450) k/uL Chloride 109 H (98-107) mmol/L Carbon Dioxide 20 L (22-30) mmol/L Glucose 101 H (74-99) mg/dL Plasma Lactic Acid Taurus (0.7-2.0) mmol/L Calcium (8.4-10.2) mg/dL C-Reactive Protein (<10.0) mg/L Albumin (3.5-5.0) g/dL Urine Protein (Negative) Urine Blood (Negative) Urine RBC (0-5) /hpf Urine Bacteria (None) /hpf Urine Mucus (None) /hpf Assessment and Plan Assessment: aspiration pneumonitis Metabolic encephalopathy secondary to above multiple sclerosis Moderate to severe coronary protein malnutrition History of DVT History of GERD Hypertension Gait dysfunction secondary to multiple sclerosis Osteoarthritis Plan: This is a pleasant 60 years old male who presents with respiration pneumonia. Start Zosyn and consult infectious disease. Follow-up culture results. hold feeding for 24 hours. Cardiology is been consulted from ED 100 form the recommendation Labs and medication were reviewed.. Continue same treatment. Continue with symptomatic treatment. Resume home medication. Monitor lytes and vitals. DVT and GI prophylaxis. Further recommendationsas per clinical course of the patient DVT prophylaxis: Subcutaneous heparin GI Prophylaxis: Pepcid Prognosis is guarded
[2020-07-17 11:57] LABS: Glucose,Whole Blood 104 mg/dL (75-99)
--- NOTE | 2020-07-17 13:47 | PN ---
PROGRESS NOTE DATE OF SERVICE: 07/17/2020 REASON FOR FOLLOWUP: Aspiration pneumonia. INTERVAL HISTORY: Patient is currently afebrile. The patient is breathing comfortably. He did have a congested cough. He remains to be nonverbal and unable to provide history. No vomiting or diarrhea has been reported by the nursing staff. PHYSICAL EXAMINATION: Blood pressure 129/84 with a pulse of 90, temperature 98. He is 95% on room air. General description is a middle-aged male lying in bed in no distress. Respiratory system: Unlabored breathing. Some coarse breath sounds in the bases. No wheeze. Heart S1, S2. Regular rhythm. Abdomen soft, no tenderness. Extremities: No edema of the feet. LABS: Hemoglobin is 10, white count 8.2, BUN of 11, creatinine 0.7. DIAGNOSTIC IMPRESSION AND PLAN: Patient admitted to hospital with fever, tachycardia, and concern for possible aspiration pneumonia. Patient is covered with Zosyn to continue. Try to obtain a sputum to narrow down antibiotics and continue supportive. MMODL / IJN: [id number] / JOSE MIGUEL
--- NOTE | 2020-07-17 13:53 | XR ---
EXAMINATION TYPE: XR chest 1V portable DATE OF EXAM: 07/17/2020 COMPARISON: 07/16/2020 HISTORY: Fever and cough TECHNIQUE: Single frontal view of the chest is obtained. FINDINGS: Right-sided PICC line is seen and there is a coarsened interstitium. Chronic rib cage defo rmities are seen. No pleural effusion or pneumothorax. Diffuse osteopenia. IMPRESSION: 1. Improving interstitial pattern suggestive of resolving or improving interstitial pneumonia, pneumo nitis or venous congestion. Degree of chronic underlying interstitial lung disease felt to be present . 2. COPD. Vague nodular density left perihilar region may represent subsegmental atelectasis or resolv ing infiltrate. Recommend follow-up x-ray in a short-term basis for resolution to exclude nodule.
[2020-07-17] MEDS: ALBUTEROL NEBULIZED 2.5 MG/3 ML INHALATION PRN ×2 (16:32→21:04)
[2020-07-17 17:12] LABS: Glucose,Whole Blood 110 mg/dL (75-99)
[2020-07-17 20:43] LABS: Glucose,Whole Blood 101 mg/dL (75-99)
[2020-07-18] MEDS: PIPERACILLIN-TAZOBACTAM 3.375 GM in SODIUM CHLORIDE 0.9% 100 ML IVPB SCH ×3 (00:11→16:39)
[2020-07-18] MEDS: carBAMazepine 200 MG TAB PEG/G-TUBE SCH ×2 (02:56→16:38)
[2020-07-18] MEDS: BACLOFEN 10 MG TAB PEG/G-TUBE SCH ×3 (06:29→22:06)
[2020-07-18 06:35] LABS: Glucose,Whole Blood 112 mg/dL (75-99)
[2020-07-18] MEDS: ALBUTEROL NEBULIZED 2.5 MG/3 ML INHALATION PRN ×3 (07:15→16:56)
[2020-07-18 07:17] LABS: Basophils # (A) 0.1 k/uL (0-0.2); Basophils % (A) 1 %; Eosinophils # (A) 0.2 k/uL (0-0.7); Eosinophils % (A) 2 %; HCT 35.7 % (39.0-53.0); HGB 11.2 gm/dL (13.0-17.5); Hypochromasia Slight; Lymphocytes # (A) 1.2 k/uL (1.0-4.8); Lymphocytes % (A) 14 %; MCH 27.9 pg (25.0-35.0); MCHC 31.2 g/dL (31.0-37.0); MCV 89.5 fL (80.0-100.0); Mean Platelet Volume 7.5; Monocytes # (A) 0.6 k/uL (0-1.0); Monocytes % (A) 7 %; Neutrophils # (A) 6.4 k/uL (1.3-7.7); Neutrophils % (A) 74 %; Platelet Count 804 k/uL (150-450); RDW 15.5 % (11.5-15.5); WBC 8.7 k/uL (3.8-10.6)
[2020-07-18 07:24] LABS: African American GFR (CKD) >90 (>60 ml/min/1.73 sqM); Anion Gap 10 mmol/L; Blood Urea Nitrogen 13 mg/dL (9-20); Calcium 8.7 mg/dL (8.4-10.2); Carbon Dioxide 23 mmol/L (22-30); Chloride 108 mmol/L (98-107); Glucose 127 mg/dL (74-99); Non-African American GFR(CKD) 78 (>60 ml/min/1.73 sqM); Potassium 3.8 mmol/L (3.5-5.1); Sodium 141 mmol/L (137-145)
[2020-07-18] MEDS: ASPIRIN 81 MG PEG/G-TUBE SCH (09:05)
[2020-07-18] MEDS: HEPARIN SODIUM,PORCINE 5,000 UNIT/ML 1 ML VIAL SQ SCH ×2 (09:05→22:04)
[2020-07-18] MEDS: LACOSAMIDE 150 MG TABLET PEG/G-TUBE SCH ×2 (09:05→22:04)
[2020-07-18] MEDS: METOPROLOL TARTRATE 50 MG TAB PEG/G-TUBE SCH ×2 (09:05→22:05)
[2020-07-18] MEDS: NITROGLYCERIN OINT 1 INCH/GM PACKET TOPICAL SCH ×4 (09:05→22:06)
[2020-07-18] MEDS: levETIRAcetam ORAL SOLN 500 MG/5 ML CUP PEG/G-TUBE SCH ×2 (09:05→22:04)
[2020-07-18] MEDS: FUROSEMIDE 10 MG/ML 4 ML VIAL IV SCH ×2 (09:06→22:03)
[2020-07-18] MEDS: FAMOTIDINE 20 MG/2 ML VIAL IV SCH ×2 (09:06→22:04)
--- NOTE | 2020-07-18 10:41 | P.PN ---
Subjective This is a pleasant 59 years old male with multiple medical problems presents with altered mental status secondary to pneumonia, patient has multiple admissions secondary to UTI and aspiration pneumonia. Other medical problems including multiple sclerosis, cognitive impairment and patient is nonverbal, patient has dysphagia and status post PEG tube, DVT of the arm, urine or bowel incontinence. Presents with fever, confusion and altered mental status. Patient could not provide information was obtained from the staff, records. He has a fever of 100.8 rest of vitals looks stable WBC is relatively elevated at 9.1K but it is within the reference range, hemoglobin 10.4, platelets 775. Versus atypical pulmonary edema versus pneumonia in the right lower lobe Sister at bedside and I discussed the case with her and she agrees with the management plan. We will start antibiotics, hold feeding for 24 hours 07/17/2020 Patient lying in bed comfortable, breathing quietly. Nonverbal at baseline. No fever today compared to low-grade fever yesterday. No leukocytosis. Sputum culture is requested. Patient is covered currently with Zosyn 07/18/2020 Patient is nonverbal at baseline, lying comfortable in bed Still tachycardic. No more fevers since yesterday. CBC and BMP are unremarkable Controlled Continue with Zosyn and tube feeding as tolerated Objective - Vital Signs Vital signs: Vital Signs Temp 97.4 F L 07/18/20 08:00 Pulse 107 H 07/18/20 08:00 Resp 16 07/18/20 08:00 BP 114/73 07/18/20 08:00 Pulse Ox 96 07/18/20 08:00 Intake & Output 07/17/20 07/18/20 07/18/20 18:59 06:59 18:59 Output Total 1600 1300 Balance -1600 -1300 Weight 58 kg Output: Urine 1600 1300 Other: Voiding Method Indwelling Catheter Indwelling Catheter # Bowel Movements 0 - Exam -GENERAL: The patient is alert and nonverbal. Does not look in respiratory distress. Loss of weight HEENT: Pupils are round and equally reacting to light. EOMI. No scleral icterus. No conjunctival pallor. Normocephalic, atraumatic. No pharyngeal erythema. No thyromegaly. CARDIOVASCULAR: S1 and S2 present. No murmurs, rubs, or gallops. -PULMONARY: Chest is clear to auscultation, bilateral good harsh breath sounds with secretions more on the right side ABDOMEN: Soft, nontender, nondistended, normoactive bowel sounds. No palpable organomegaly. MUSCULOSKELETAL: No joint swelling or deformity. EXTREMITIES: No cyanosis, clubbing, or pedal edema. NEUROLOGICAL: Gross neurological examination did not reveal any focal deficits. SKIN: No rashes. no petechiae. - Labs CBC & Chem 7: 07/18/20 06:45 07/18/20 06:45 Labs: Abnormal Lab Results - Last 24 Hours (Table) 07/17/20 07/17/20 07/17/20 Range/Units 11:55 17:11 20:24 RBC (4.30-5.90) m/uL Hgb (13.0-17.5) gm/dL Hct (39.0-53.0) % Plt Count (150-450) k/uL Chloride (98-107) mmol/L Glucose (74-99) mg/dL POC Glucose (mg/dL) 104 H 110 H 101 H (75-99) mg/dL 07/18/20 07/18/20 07/18/20 Range/Units 06:32 06:45 06:45 RBC 4.00 L (4.30-5.90) m/uL Hgb 11.2 L (13.0-17.5) gm/dL Hct 35.7 L (39.0-53.0) % Plt Count 804 H (150-450) k/uL Chloride 108 H (98-107) mmol/L Glucose 127 H (74-99) mg/dL POC Glucose (mg/dL) 112 H (75-99) mg/dL Microbiology - Last 24 Hours (Table) 07/16/20 11:00 Blood Culture - Preliminary Blood No Growth after 24 hours Assessment and Plan Assessment: aspiration pneumonitis Metabolic encephalopathy secondary to above multiple sclerosis Moderate to severe coronary protein malnutrition History of DVT History of GERD Hypertension Gait dysfunction secondary to multiple sclerosis Osteoarthritis Plan: This is a pleasant 60 years old male who presents with respiration pneumonia. Start Zosyn and consult infectious disease. Follow-up culture results. hold feeding for 24 hours. Cardiology is been consulted from ED 100 form the recommendation Labs and medication were reviewed.. Continue same treatment. Continue with symptomatic treatment. Resume home medication. Monitor lytes and vitals. DVT and GI prophylaxis. Further recommendationsas per clinical course of the patient DVT prophylaxis: Subcutaneous heparin GI Prophylaxis: Pepcid Prognosis is guarded
[2020-07-18 12:25] LABS: Glucose,Whole Blood 127 mg/dL (75-99)
[2020-07-18 17:31] LABS: Glucose,Whole Blood 128 mg/dL (75-99)
[2020-07-18 20:49] LABS: Glucose,Whole Blood 133 mg/dL (75-99)
[2020-07-19] MEDS: PIPERACILLIN-TAZOBACTAM 3.375 GM in SODIUM CHLORIDE 0.9% 100 ML IVPB SCH ×4 (00:15→23:00)
--- NOTE | 2020-07-19 02:29 | PN ---
PROGRESS NOTE DATE OF SERVICE: 07/18/2020 REASON FOR FOLLOWUP: Aspiration pneumonia. INTERVAL HISTORY: The patient is currently afebrile. The patient is hemodynamically stable. The patient remains to be normal. No vomiting or diarrhea has been reported by nursing staff. PHYSICAL EXAMINATION: Blood pressure 117/91 with a pulse 100, temperature 96.8. He is 96% on room air. General description is a middle-aged male lying in bed in no distress. RESPIRATORY SYSTEM: Unlabored breathing, decreased breath sounds in the bases. No wheeze. HEART: S1, S2. Regular rate and rhythm. ABDOMEN: Soft, no tenderness. LABS: Hemoglobin 11.2, white count 8.7, creatinine 1.03. DIAGNOSTIC IMPRESSION AND PLAN: Patient admitted to the hospital with fever, concern for aspiration pneumonia. Patient is covered with Zosyn. Clinically responding to it, to continue for another week to finish course of therapy. Continue supportive care. MMODL / IJN: [id number] /
[2020-07-19] MEDS ORDERED: BACLOFEN 10 MG TAB ONE (06:00)
[2020-07-19 06:21] LABS: Glucose,Whole Blood 150 mg/dL (75-99)
[2020-07-19] MEDS: carBAMazepine 200 MG TAB PEG/G-TUBE SCH ×2 (06:57→17:38)
[2020-07-19] MEDS: BACLOFEN 10 MG TAB PEG/G-TUBE SCH ×3 (06:57→20:42)
[2020-07-19 07:56] LABS: Basophils # (A) 0.1 k/uL (0-0.2); Basophils % (A) 1 %; Eosinophils # (A) 0.2 k/uL (0-0.7); Eosinophils % (A) 2 %; HCT 36.4 % (39.0-53.0); HGB 11.2 gm/dL (13.0-17.5); Hypochromasia Slight; Lymphocytes # (A) 1.4 k/uL (1.0-4.8); Lymphocytes % (A) 13 %; MCH 27.5 pg (25.0-35.0); MCHC 30.8 g/dL (31.0-37.0); MCV 89.4 fL (80.0-100.0); Mean Platelet Volume 7.6; Monocytes # (A) 0.8 k/uL (0-1.0); Monocytes % (A) 8 %; Neutrophils # (A) 7.6 k/uL (1.3-7.7); Neutrophils % (A) 74 %; Platelet Count 793 k/uL (150-450); RBC 4.07 m/uL (4.30-5.90); RDW 15.4 % (11.5-15.5); WBC 10.3 k/uL (3.8-10.6)
[2020-07-19 08:03] LABS: Calcium 9.1 mg/dL (8.4-10.2); Potassium 3.8 mmol/L (3.5-5.1)
[2020-07-19] MEDS: ALBUTEROL NEBULIZED 2.5 MG/3 ML INHALATION PRN ×3 (08:19→19:40)
[2020-07-19] MEDS: LACOSAMIDE 150 MG TABLET PEG/G-TUBE SCH ×2 (09:06→20:41)
[2020-07-19] MEDS: FUROSEMIDE 10 MG/ML 4 ML VIAL IV SCH ×2 (09:06→20:36)
[2020-07-19] MEDS: levETIRAcetam ORAL SOLN 500 MG/5 ML CUP PEG/G-TUBE SCH ×2 (09:06→20:41)
[2020-07-19] MEDS: METOPROLOL TARTRATE 50 MG TAB PEG/G-TUBE SCH ×2 (09:07→20:41)
[2020-07-19] MEDS: FAMOTIDINE 20 MG/2 ML VIAL IV SCH ×2 (09:07→20:36)
[2020-07-19] MEDS: ASPIRIN 81 MG PEG/G-TUBE SCH (09:07)
[2020-07-19] MEDS: HEPARIN SODIUM,PORCINE 5,000 UNIT/ML 1 ML VIAL SQ SCH ×2 (09:07→20:36)
[2020-07-19] MEDS: NITROGLYCERIN OINT 1 INCH/GM PACKET TOPICAL SCH (09:08)
--- NOTE | 2020-07-19 09:46 | XR ---
EXAMINATION TYPE: XR chest 1V portable DATE OF EXAM: 07/19/2020 Comparison: 07/17/2020 Clinical History: 60-year-old male sob Findings: Right PICC tip in the lower right atrium. Heart appears borderline in size. Increasing focal peripher al right basilar opacity. No pleural effusion. Some improvement in the overall appearance to the inte rstitium. Impression: New peripheral right basilar atelectasis and/or consolidation. Correlate for any symptoms to exclude pneumonia.
[2020-07-19 11:56] LABS: Glucose,Whole Blood 139 mg/dL (75-99)
--- NOTE | 2020-07-19 12:55 | P.PN ---
Subjective This is a pleasant 59 years old male with multiple medical problems presents with altered mental status secondary to pneumonia, patient has multiple admissions secondary to UTI and aspiration pneumonia. Other medical problems including multiple sclerosis, cognitive impairment and patient is nonverbal, patient has dysphagia and status post PEG tube, DVT of the arm, urine or bowel incontinence. Presents with fever, confusion and altered mental status. Patient could not provide information was obtained from the staff, records. He has a fever of 100.8 rest of vitals looks stable WBC is relatively elevated at 9.1K but it is within the reference range, hemoglobin 10.4, platelets 775. Versus atypical pulmonary edema versus pneumonia in the right lower lobe Sister at bedside and I discussed the case with her and she agrees with the management plan. We will start antibiotics, hold feeding for 24 hours 07/17/2020 Patient lying in bed comfortable, breathing quietly. Nonverbal at baseline. No fever today compared to low-grade fever yesterday. No leukocytosis. Sputum culture is requested. Patient is covered currently with Zosyn 07/18/2020 Patient is nonverbal at baseline, lying comfortable in bed Still tachycardic. No more fevers since yesterday. CBC and BMP are unremarkable Controlled Continue with Zosyn and tube feeding as tolerated 07/19/2020 Patient is nonverbal however he notices still feeling lethargic and weak. His fever subsided and he is saturating 94% on room air Repeat chest x-ray showing Right basilar atelectasis and/or consolidation. Correlate for pneumonia Patient remains currently on Zosyn. Blood culture showed no growth. Sputum culture could not be obtained Patient is followed closely by infectious disease team. We will discuss with ID team, the plan I discussed the case with his sister miss mcnair and all her questions were answered. Discussed with the staff Review of systems: N/a Active Medications Generic Name Dose Route Start Last Admin Trade Name Freq PRN Reason Stop Dose Admin Acetaminophen 650 mg 07/16/20 19:41 Acetaminophen Tab 325 Mg Tab PO Q6HR PRN Fever and/ or Pain Albuterol Sulfate 2.5 mg 07/16/20 14:54 07/19/20 08:19 Albuterol Nebulized 2.5 Mg/3 Ml INHALATION 2.5 mg RT-Q4H PRN Administration Shortness Of Breath Aspirin 81 mg 07/17/20 09:00 07/19/20 09:07 Aspirin 81 Mg PEG/G-TUBE 81 mg DAILY LUPE Administration Baclofen 10 mg 07/16/20 22:00 07/19/20 06:57 Baclofen 10 Mg Tab PEG/G-TUBE Not Given TID@0600,1400,2200 LUPE Carbamazepine 100 mg 07/16/20 15:00 07/19/20 06:57 Carbamazepine 200 Mg Tab PEG/G-TUBE Not Given Q12H LUPE Famotidine 10 mg 07/16/20 21:00 07/19/20 09:07 Famotidine 20 Mg/2 Ml Vial IV 10 mg Q12HR LUPE Administration Furosemide 40 mg 07/16/20 21:00 07/19/20 09:06 Furosemide 10 Mg/Ml 4 Ml Vial IV 40 mg Q12H LUPE Administration Heparin Sodium (Porcine) 5,000 unit 07/16/20 15:00 07/19/20 09:07 Heparin Sodium,Porcine 5,000 Unit/Ml 1 Ml Vial SQ 5,000 unit Q12HR LUPE Administration Piperacillin Sod/Tazobactam 100 mls @ 25 mls/hr 07/16/20 16:00 07/19/20 09:08 Sod 3.375 gm/ Sodium Chloride IVPB 25 mls/hr Q8HR LUPE Administration Lacosamide 150 mg 07/16/20 21:00 07/19/20 09:06 Lacosamide 150 Mg Tablet PEG/G-TUBE 150 mg BID@09,2099 LUPE Administration Levetiracetam 200 mg 07/16/20 21:00 07/19/20 09:06 Levetiracetam Oral Soln 500 Mg/5 Ml Cup PEG/G-TUBE 200 mg BID@899,2099 LUPE Administration Metoprolol Tartrate 75 mg 07/16/20 21:00 07/19/20 09:07 Metoprolol Tartrate 50 Mg Tab PEG/G-TUBE 75 mg BID@0900,2100 LUPE Administration Objective - Vital Signs Vital signs: Vital Signs Temp 98 F 07/19/20 08:00 Pulse 94 07/19/20 08:30 Resp 16 07/19/20 08:00 BP 116/81 07/19/20 08:00 Pulse Ox 94 L 07/19/20 08:00 Intake & Output 07/18/20 07/19/20 07/19/20 18:59 06:59 18:59 Intake Total 0 Output Total 3900 Balance -3900 0 Weight 52 kg Intake: Oral 0 Output: Urine 3900 Other: Voiding Method Indwelling Catheter Indwelling Catheter Indwelling Catheter # Bowel Movements 0 - Exam -GENERAL: The patient is alert and nonverbal. Does not look in respiratory distress. Loss of weight HEENT: Pupils are round and equally reacting to light. EOMI. No scleral icterus. No conjunctival pallor. Normocephalic, atraumatic. No pharyngeal erythema. No thyromegaly. CARDIOVASCULAR: S1 and S2 present. No murmurs, rubs, or gallops. -PULMONARY: Chest is clear to auscultation, bilateral good harsh breath sounds with secretions more on the right side ABDOMEN: Soft, nontender, nondistended, normoactive bowel sounds. No palpable organomegaly. MUSCULOSKELETAL: No joint swelling or deformity. EXTREMITIES: No cyanosis, clubbing, or pedal edema. NEUROLOGICAL: Gross neurological examination did not reveal any focal deficits. SKIN: No rashes. no petechiae. - Labs CBC & Chem 7: 07/19/20 07:27 07/19/20 07:27 Labs: Abnormal Lab Results - Last 24 Hours (Table) 07/18/20 07/18/20 07/19/20 Range/Units 17:03 20:33 06:11 RBC (4.30-5.90) m/uL Hgb (13.0-17.5) gm/dL Hct (39.0-53.0) % MCHC (31.0-37.0) g/dL Plt Count (150-450) k/uL Chloride (98-107) mmol/L Glucose (74-99) mg/dL POC Glucose (mg/dL) 128 H 133 H 150 H (75-99) mg/dL 07/19/20 07/19/20 07/19/20 Range/Units 07:27 07:27 11:53 RBC 4.07 L (4.30-5.90) m/uL Hgb 11.2 L (13.0-17.5) gm/dL Hct 36.4 L (39.0-53.0) % MCHC 30.8 L (31.0-37.0) g/dL Plt Count 793 H (150-450) k/uL Chloride 109 H (98-107) mmol/L Glucose 139 H (74-99) mg/dL POC Glucose (mg/dL) 139 H (75-99) mg/dL Microbiology - Last 24 Hours (Table) 07/16/20 11:00 Blood Culture - Preliminary Blood No Growth after 48 hours Assessment and Plan Assessment: aspiration pneumonitis Metabolic encephalopathy secondary to above multiple sclerosis Moderate to severe coronary protein malnutrition History of DVT History of GERD Hypertension Gait dysfunction secondary to multiple sclerosis Osteoarthritis Plan: This is a pleasant 60 years old male who presents with respiration pneumonia. Continue with antibiotics as per infectious disease team. Follow-up culture results. hold feeding for another 24-48 hours. Cardiology is been consulted from ED Labs and medication were reviewed.. Continue same treatment. Continue with symptomatic treatment. Resume home medication. Monitor lytes and vitals. DVT and GI prophylaxis. Further recommendationsas per clinical course of the patient DVT prophylaxis: Subcutaneous heparin GI Prophylaxis: Pepcid Prognosis is guarded
--- NOTE | 2020-07-19 13:54 | P.CRDCN ---
History of Present Illness History of present illness: HISTORY OF PRESENTING ILLNESS This is a pleasant 60-year-old male past medical history significant for multiple sclerosis. We have been asked to see in consultation for pulmonary edema noted on chest x-ray. The patient is nonverbal and does not communicate. Information is obtained from the medical record and the nursing staff. He was brought to the hospital [facility] He has been diagnosed with aspiration pneumonia and is currently on IV antibiotics. EKG reveals sinus tachycardia with no acute ST or T wave abnormalities noted. Chest x-ray reveals right consolidation. Laboratory data reviewed, WBC 10.3, hemoglobin 11.2, platelets 793, sodium 143, potassium 3.8, creatinine 1.09, NT proBNP on admission 1940 repeat today 542, pro-calcitonin 0.09. Current daily cardiac medications include Lopressor 75 mg twice a day and aspirin 81 mg daily. Most recent echocardiogram obtained August 2019 reveals preserved LV systolic function with ejection fraction 55-60%. REVIEW OF SYSTEMS At the time of my exam: Unable to obtain accurate review of systems secondary to patient being nonverbal and noncommunicative toward. PHYSICAL EXAMINATION Blood pressure 116/81 heart rate 94 afebrile and maintaining oxygen saturation on room air. CONSTITUTIONAL: No apparent distress. HEENT: Head is normocephalic. Pupils are equal, round. Sclerae anicteric. Mucous membranes of the mouth are moist. No JVD. No carotid bruit. CHEST EXAMINATION: Lungs are clear to auscultation. No chest wall tenderness is noted on palpation or with deep breathing. HEART EXAMINATION: Regular rate and rhythm. S1, S2 heard. No murmurs, gallops or rub. ABDOMEN: Soft, nontender. Positive bowel sounds. EXTREMITIES: 2+ peripheral pulses, no lower extremity edema and no calf tenderness. Contracted lower extremities. ASSESSMENT Aspiration pneumonia Multiple sclerosis Nonverbal PLAN The patient is euvolemic with no evidence suggests fluid overload. Ongoing medical management of aspiration pneumonia. We will follow along as needed, thank you kindly for this consultation. Nurse Practitioner note has been reviewed, I agree with a documented findings and plan of care. Patient was seen and examined. Past Medical History Past Medical History: Deep Vein Thrombosis (DVT), GERD/Reflux, Hypertension, Musculoskeletal Disorder, Neurologic Disorder, Pneumonia, Skin Disorder Additional Past Medical History / Comment(s): Pt recently hospitalized at [facility] for extensive stay with seizure/pneumonia/UTI with sepsis/respirtory failure/vented-Pt diagnosed with multiple sclerosis at the age of 20 yrs, cognitive impairment, sister states when he is feeling well he could speak a few words/nod head appropriately/give thumbs up/roll eyes but when ill is nonverbal, pt has dysphagia/NPO with peg tube, contractures, trigeminal neuralgia, dysarthria/anarthria/neurogenic bladder with IDC-UTIs/sepsis, multiple pneumonias, recent seizure-last one 07/03/20, incontinent of stool, pt has had decubitus ulcer coccyx-sister unsure of skin condition at this time, past anemia r/t heparin/epistaxiis which involved nasal packing/transfusions, DVT bilateral arms. History of Any Multi-Drug Resistant Organisms: ESBL, MRSA Date of last positivie culture/infection: 09/13/19-MRSA; 11/23/19 ESBL-E.coli MDRO Source:: Broch lavage-Mrsa; Urine -ESBL Past Surgical History: Tonsillectomy Additional Past Surgical History / Comment(s): Gastrostomy, peg tube, I&D coccyx decubitius, bilateral lasik eye surgery. Past Anesthesia/Blood Transfusion Reactions: No Reported Reaction Additional Past Anesthesia/Blood Transfusion Reaction / Comment(s): Pt has received blood in past without reaction. Smoking Status: Never smoker - Past Family History Father Family Medical History: Myocardial Infarction (TN) Additional Family Medical History / Comment(s): Father is at the age of 86 yrs while on heparin/bled, he had a mild [place] Mother Family Medical History: Hypertension, Myocardial Infarction ([place]) Additional Family Medical History / Comment(s): Mother of a TN at the age o f 73 yrs. Medications and Allergies Home Medications Medication Instructions Recorded Confirmed Type Amantadine 50mg/5ml 100 mg PEG/G-TUBE Q12H 12/28/17 07/16/20 History Cholecalciferol [Vitamin D3 (25 1,000 unit PEG/G-TUBE DAILY 12/28/17 07/16/20 History Mcg = 1000 Iu)] Docusate Oral Soln [Colace Oral 200 mg PEG/G-TUBE Q12H PRN 12/28/17 07/16/20 History Soln] guaiFENesin [guaiFENesin Oral 200 mg PEG/G-TUBE Q6H PRN 12/28/17 07/16/20 History Solution] Acetaminophen Oral Susp [Tylenol] 320 mg PEG/G-TUBE Q6H PRN 01/26/19 07/16/20 History Omeprazole Magnesium [PriLOSEC 20 mg PEG/G-TUBE DAILY 01/26/19 07/16/20 History Oral Susp] carBAMazepine [carBAMazepine Oral 100 mg PEG/G-TUBE Q12H 04/15/19 07/16/20 History Susp] Cranberry Fruit Extract [Cranberry] 500 mg PEG/G-TUBE Q12H 06/03/19 07/16/20 History Metoprolol Tartrate [Lopressor] 75 mg PEG/G-TUBE BID@0900,2100 07/29/19 07/16/20 History Oxybutynin Chloride [Ditropan Oral 5 mg PEG/G-TUBE TID@0600,1400,2200 09/08/19 07/16/20 History Soln] polyethylene glycoL 3350 [Miralax] 17 gm PEG/G-TUBE HS PRN 09/08/19 07/16/20 History Ipratropium-Albuterol Nebulize 3 ml INHALATION RT-QID PRN 12/16/19 07/16/20 History [Duoneb 0.5 mg-3 mg/3 ml Soln] Albuterol Sulfate [Proair Hfa] 2 puff INHALATION RT-Q4H PRN 04/14/20 07/16/20 History Aspirin 81 mg PEG/G-TUBE DAILY chew 04/15/20 07/16/20 Rx Baclofen [Lioresal] 10 mg PEG/G-TUBE TID@0600,1400,2200 07/16/20 07/16/20 History Hydrocerin Cream 1 applic TOPICAL BID@0900,209907/16/20 07/16/20 History Lacosamide [Vimpat] 150 mg PEG/G-TUBE BID@0900,209907/16/20 07/16/20 History Piperacillin-Tazobactam [Zosyn] 3.375 gm IVPB TID@0600,1400,2200 07/16/20 07/16/20 History Pulmocare 1.5 1,105 ml PEG/G-TUBE DIRECTED 07/16/20 07/16/20 History Vancomycin 1,500 mg IV Q24HR 07/16/20 07/16/20 History levETIRAcetam [levETIRAcetam Oral 200 mg PEG/G-TUBE BID@0900,2100 07/16/20 07/16/20 History Soln] Allergies Allergy/AdvReac Type Severity Reaction Status Date / Time meropenem [From Merrem] Allergy Rash/Hives Verified 07/16/20 11:01 Physical Exam Vitals: Vital Signs Temp Pulse Pulse Resp BP BP Pulse Ox 07/17/20 03:34 98 F 98 24 129/84 95 07/17/20 00:00 98.5 F 85 24 143/88 97 07/16/20 19:35 98.6 F 92 22 147/87 96 07/16/20 14:54 90 16 07/16/20 14:42 90 16 133/79 98 07/16/20 13:18 100.1 F H 89 18 145/96 100 07/16/20 12:40 100.1 F H 89 18 152/98 100 07/16/20 11:40 18 07/16/20 10:20 100.8 F H 104 H 16 140/96 96 Intake and Output 07/16/20 07/17/20 07/17/20 22:59 06:59 14:59 Intake Total 0 Output Total 1800 Balance 0 -1800 Intake: Oral 0 Output: Urine 1800 Other: Voiding Method Indwelling Catheter Indwelling Catheter # Bowel Movements 0 Weight 58.5 kg Results 07/19/20 07:27 07/19/20 07:27 Cardiac Enzymes 07/16/20 Range/Units 10:35 AST 31 (17-59) U/L Coagulation 07/16/20 Range/Units 10:35 PT 10.2 (9.0-12.0) sec APTT 26.5 (22.0-30.0) sec CBC 07/16/20 07/17/20 Range/Units 10:35 07:28 WBC 9.1 8.2 (3.8-10.6) k/uL RBC 3.74 L 3.87 L (4.30-5.90) m/uL Hgb 10.4 L D 10.7 L (13.0-17.5) gm/dL Hct 33.2 L 34.9 L (39.0-53.0) % Plt Count 775 H D 758 H (150-450) k/uL Comprehensive Metabolic Panel 07/16/20 07/17/20 Range/Units 10:35 07:28 Sodium 138 138 (137-145) mmol/L Potassium 4.0 4.2 (3.5-5.1) mmol/L Chloride 108 H 109 H (98-107) mmol/L Carbon Dioxide 22 20 L (22-30) mmol/L BUN 11 11 (9-20) mg/dL Creatinine 0.67 0.87 (0.66-1.25) mg/dL Glucose 103 H 101 H (74-99) mg/dL Calcium 8.2 L 8.4 (8.4-10.2) mg/dL AST 31 (17-59) U/L ALT 18 (4-49) U/L Alkaline Phosphatase 79 (38-126) U/L Total Protein 6.3 (6.3-8.2) g/dL Albumin 2.7 L (3.5-5.0) g/dL Current Medications Generic Name Dose Route Start Last Admin Trade Name Freq PRN Reason Stop Dose Admin Acetaminophen 650 mg 07/16/20 19:41 Acetaminophen Tab 325 Mg Tab PO Q6HR PRN Fever and/ or Pain Albuterol Sulfate 2.5 mg 07/16/20 14:54 Albuterol Nebulized 2.5 Mg/3 Ml INHALATION RT-Q4H PRN Shortness Of Breath Aspirin 81 mg 07/17/20 09:00 Aspirin 81 Mg PEG/G-TUBE DAILY LUPE Baclofen 10 mg 07/16/20 22:00 07/17/20 06:52 Baclofen 10 Mg Tab PEG/G-TUBE 10 mg TID@0600,1400,2200 LUPE Administration Carbamazepine 100 mg 07/16/20 15:00 07/17/20 03:08 Carbamazepine 200 Mg Tab PEG/G-TUBE 100 mg Q12H LUPE Administration Famotidine 10 mg 07/16/20 21:00 07/16/20 20:24 Famotidine 20 Mg/2 Ml Vial IV 10 mg Q12HR LUPE Administration Furosemide 40 mg 07/16/20 21:00 07/16/20 20:24 Furosemide 10 Mg/Ml 4 Ml Vial IV 40 mg Q12H LUPE Administration Heparin Sodium (Porcine) 5,000 unit 07/16/20 15:00 07/16/20 20:29 Heparin Sodium,Porcine 5,000 Unit/Ml 1 Ml Vial SQ 5,000 unit Q12HR LUPE Administration Piperacillin Sod/Tazobactam 100 mls @ 25 mls/hr 07/16/20 16:00 07/16/20 23:40 Sod 3.375 gm/ Sodium Chloride IVPB 25 mls/hr Q8HR LUPE Administration Lacosamide 150 mg 07/16/20 21:00 07/16/20 20:23 Lacosamide 150 Mg Tablet PEG/G-TUBE 150 mg BID@0900,2100 [facility] Administration Levetiracetam 200 mg 07/16/20 21:00 07/16/20 20:23 Levetiracetam Oral Soln 500 Mg/5 Ml Cup PEG/G-TUBE 200 mg BID@0900,2100 [facility] Administration Metoprolol Tartrate 75 mg 07/16/20 21:00 07/16/20 20:23 Metoprolol Tartrate 50 Mg Tab PEG/G-TUBE 75 mg BID@0900,2100 [facility] Administration Nitroglycerin 1 inch 07/16/20 13:00 07/16/20 20:29 Nitroglycerin Oint 1 Inch/Gm Packet TOPICAL 1 inch QID [facility] Administration Intake and Output 07/16/20 07/17/20 07/17/20 22:59 06:59 14:59 Intake Total 0 Output Total 1800 Balance 0 -1800 Intake: Oral 0 Output: Urine 1800 Other: Voiding Method Indwelling Catheter Indwelling Catheter # Bowel Movements 0 Weight 58.5 kg 07/17/20 07:28 07/17/20 07:28
--- NOTE | 2020-07-19 14:00 | ECHOF ---
Referral Reason:sob MEASUREMENTS -------- HEIGHT: 175.3 cm WEIGHT: 51.7 kg BP: 113/70 RVIDd: 2.6 cm (< 3.3) IVSd: 1.0 cm (0.6 - 1.1) LVIDd: 2.7 cm (3.9 - 5.3) LVPWd: 1.1 cm (0.6 - 1.1) IVSs: 1.6 cm LVIDs: 2.3 cm LVPWs: 1.5 cm LA Diam: 2.3 cm (2.7 - 3.8) Ao Diam: 3.5 cm (2.0 - 3.7) AV Cusp: 2.2 cm (1.5 - 2.6) MV EXCURSION: 15.792 mm (> 18.000) MV EF SLOPE: 92 mm/s (70 - 150) EPSS: 0.2 cm MV E Memo: 0.47 m/s MV DecT: 182 ms MV A Memo: 0.59 m/s MV E/A Ratio: 0.80 RAP: 5.00 mmHg RVSP: 20.05 mmHg FINDINGS -------- Sinus rhythm. This was a technically adequate study. The left ventricular size is normal. There is borderline concentric left ventricular hypertrophy. Overall left ventricular systolic function is normal with, an EF between 60 - 65 %. The diastolic filling pattern is normal for the age of the patient 7.11. The right ventricle is normal in size. The left atrium is normal in size. The right atrium is normal in size. Interatrial and interventricular septum intact. The aortic valve is trileaflet and appears structurally normal. There is trace mitral regurgitation. Mild tricuspid regurgitation present. Right ventricular systolic pressure is normal at < 35 mmHg. The pulmonic valve was not well visualized. The aortic root size is normal. There is no pericardial effusion. CONCLUSIONS -------- 1. The left ventricular size is normal. 2. There is borderline concentric left ventricular hypertrophy. 3. Overall left ventricular systolic function is normal with, an EF between 60 - 65 %. 4. The diastolic filling pattern is normal for the age of the patient 7.11 5. There is trace mitral regurgitation. 6. Mild tricuspid regurgitation present. 7. There is no pericardial effusion. CERAMICS TEST ENGINEER: Tayla Fuentes RDCS
--- NOTE | 2020-07-19 14:06 | PN ---
PROGRESS NOTE DATE OF SERVICE: 07/19/2020 REASON FOR FOLLOWUP: Aspiration pneumonia. INTERVAL HISTORY: The patient is currently afebrile. The patient is hemodynamically stable. He is breathing comfortably, currently on room air. No worsening congested cough has been noticed. No abdominal pain. No diarrhea or vomiting reported either. The patient himself was unable to provide any history. PHYSICAL EXAMINATION: Blood pressure 116/81 with a pulse of 92, temperature 98, he is 94% on room air. General description is a middle-aged male, lying in bed in no distress. RESPIRATORY SYSTEM: Unlabored breathing, decreased breath sounds, no wheeze. HEART: S1, S2. Regular rate and rhythm. ABDOMEN: Soft, no tenderness. LABS: Hemoglobin 11.2, white count of 10.3, BUN of 16 and creatinine 1.9. DIAGNOSTIC IMPRESSION AND PLAN: Patient admitted to the hospital with hypoxemia and concern for aspiration pneumonia. Patient's x-ray did show a height with significant consolidation, clinically responded to Zosyn; to continue for another 10 days while the patient only has a PICC line. Continue supportive care. MMODL / IJN: [id number] /
[2020-07-19 17:06] LABS: Glucose,Whole Blood 145 mg/dL (75-99)
[2020-07-19 20:51] LABS: Glucose,Whole Blood 125 mg/dL (75-99)
[2020-07-20] MEDS: carBAMazepine 200 MG TAB PEG/G-TUBE SCH ×2 (03:18→15:27)
[2020-07-20] MEDS: BACLOFEN 10 MG TAB PEG/G-TUBE SCH ×3 (06:04→21:21)
[2020-07-20 06:22] LABS: Glucose,Whole Blood 111 mg/dL (75-99)
[2020-07-20] MEDS: ALBUTEROL NEBULIZED 2.5 MG/3 ML INHALATION PRN ×4 (07:26→20:01)
--- NOTE | 2020-07-20 07:43 | XR ---
EXAMINATION TYPE: XR chest 1V DATE OF EXAM: 07/20/2020 COMPARISON: 07/19/2020 HISTORY: 60 year-old male shortness of breath TECHNIQUE: Single frontal view of the chest is obtained. FINDINGS: Heart normal size. Right PICC tip remains in the right atrium. Interstitial opacities persist. Improv ing aeration at the right base with some residual mild patchy density. IMPRESSION: Improving aeration at the right base. Background of mild interstitial density is similar, correlate f or possible mild pulmonary vascular congestion.
[2020-07-20] MEDS: HEPARIN SODIUM,PORCINE 5,000 UNIT/ML 1 ML VIAL SQ SCH ×2 (09:13→19:58)
[2020-07-20] MEDS: FUROSEMIDE 10 MG/ML 4 ML VIAL IV SCH ×2 (09:13→19:57)
[2020-07-20] MEDS: FAMOTIDINE 20 MG/2 ML VIAL IV SCH ×2 (09:14→19:57)
[2020-07-20] MEDS: METOPROLOL TARTRATE 50 MG TAB PEG/G-TUBE SCH ×2 (09:15→21:21)
[2020-07-20] MEDS: LACOSAMIDE 150 MG TABLET PEG/G-TUBE SCH ×2 (09:17→21:21)
[2020-07-20] MEDS: ASPIRIN 81 MG PEG/G-TUBE SCH (09:17)
[2020-07-20] MEDS: PIPERACILLIN-TAZOBACTAM 3.375 GM in SODIUM CHLORIDE 0.9% 100 ML IVPB SCH ×3 (09:18→22:59)
[2020-07-20] MEDS: levETIRAcetam ORAL SOLN 500 MG/5 ML CUP PEG/G-TUBE SCH ×2 (09:20→21:21)
--- NOTE | 2020-07-20 11:38 | P.PN ---
Subjective This is a pleasant 59 years old male with multiple medical problems presents with altered mental status secondary to pneumonia, patient has multiple admissions secondary to UTI and aspiration pneumonia. Other medical problems including multiple sclerosis, cognitive impairment and patient is nonverbal, patient has dysphagia and status post PEG tube, DVT of the arm, urine or bowel incontinence. Presents with fever, confusion and altered mental status. Patient could not provide information was obtained from the staff, records. He has a fever of 100.8 rest of vitals looks stable WBC is relatively elevated at 9.1K but it is within the reference range, hemoglobin 10.4, platelets 775. Versus atypical pulmonary edema versus pneumonia in the right lower lobe Sister at bedside and I discussed the case with her and she agrees with the management plan. We will start antibiotics, hold feeding for 24 hours 07/17/2020 Patient lying in bed comfortable, breathing quietly. Nonverbal at baseline. No fever today compared to low-grade fever yesterday. No leukocytosis. Sputum culture is requested. Patient is covered currently with Zosyn 07/18/2020 Patient is nonverbal at baseline, lying comfortable in bed Still tachycardic. No more fevers since yesterday. CBC and BMP are unremarkable Controlled Continue with Zosyn and tube feeding as tolerated 07/19/2020 Patient is nonverbal however he notices still feeling lethargic and weak. His fever subsided and he is saturating 94% on room air Repeat chest x-ray showing Right basilar atelectasis and/or consolidation. Correlate for pneumonia Patient remains currently on Zosyn. Blood culture showed no growth. Sputum culture could not be obtained Patient is followed closely by infectious disease team. We will discuss with ID team, the plan I discussed the case with his sister miss mcnair and all her questions were answered. Discussed with the staff 07/20/2020 Patient remains lethargic and nonverbal, patient had low-grade temperature last night 100.4, blood pressure this morning is 124/81, heart rate 116, temperature 98.2 and breathing at 20 breaths per minute. He does not look in respiratory distress Chest x-ray from today showing improving aeration in the right base, background of mixed interstitial density is similar. Correlate for possible pulmonary vascular congestion. As per radiologist. Patient is already on Lasix IV 40 mg twice daily. Yesterday we stopped his tube feeding for concern of recurrent aspiration, head of bed is elevated all the time. Because of his loss of weight and weakness, I start him on TPN via his PICC line. Yesterday the sister miss ms Chris talked to me and wanted him to be started on IV vancomycin. However when we discuss it with Dr. Agrawal from infectious disease he does not think he needs IV vancomycin. I agree with Dr. Farah as the risk of these medication is more than the benefit at this point. Besides his chest x-ray from today showing improvement aeration while on Zosyn. Blood culture still showed no growth. Sputum culture is ordered but cannot be collected. tube feeding still on hold After I rounded on the patient today, and talked to the staff and the dietitian. I was informed by the mental health case manager Cynthia that the sister ms Chris wanted a different attending. I discussed the case with Dr. Pugh and he kindly accepted the patient Review of systems: N/a Active Medications Generic Name Dose Route Start Last Admin Trade Name Freq PRN Reason Stop Dose Admin Acetaminophen 650 mg 07/16/20 19:41 Acetaminophen Tab 325 Mg Tab PO Q6HR PRN Fever and/ or Pain Albuterol Sulfate 2.5 mg 07/16/20 14:54 07/20/20 11:11 Albuterol Nebulized 2.5 Mg/3 Ml INHALATION 2.5 mg RT-Q4H PRN Administration Shortness Of Breath Aspirin 81 mg 07/17/20 09:00 07/20/20 09:17 Aspirin 81 Mg PEG/G-TUBE 81 mg DAILY LUPE Administration Baclofen 10 mg 07/16/20 22:00 07/20/20 06:04 Baclofen 10 Mg Tab PEG/G-TUBE 10 mg TID@0600,1400,2200 LUPE Administration Carbamazepine 100 mg 07/16/20 15:00 07/20/20 03:18 Carbamazepine 200 Mg Tab PEG/G-TUBE 100 mg Q12H LUPE Administration Famotidine 10 mg 07/16/20 21:00 07/20/20 09:14 Famotidine 20 Mg/2 Ml Vial IV 10 mg Q12HR LUPE Administration Furosemide 40 mg 07/16/20 21:00 07/20/20 09:13 Furosemide 10 Mg/Ml 4 Ml Vial IV 40 mg Q12H LUPE Administration Heparin Sodium (Porcine) 5,000 unit 07/16/20 15:00 07/20/20 09:13 Heparin Sodium,Porcine 5,000 Unit/Ml 1 Ml Vial SQ 5,000 unit Q12HR LUPE Administration Piperacillin Sod/Tazobactam 100 mls @ 25 mls/hr 07/16/20 16:00 07/20/20 09:18 Sod 3.375 gm/ Sodium Chloride IVPB 25 mls/hr Q8HR LUPE Administration Lacosamide 150 mg 07/16/20 21:00 07/20/20 09:17 Lacosamide 150 Mg Tablet PEG/G-TUBE 150 mg BID@899,2099 LUPE Administration Levetiracetam 200 mg 07/16/20 21:00 07/20/20 09:20 Levetiracetam Oral Soln 500 Mg/5 Ml Cup PEG/G-TUBE 200 mg BID@899,2099 LUPE Administration Metoprolol Tartrate 75 mg 07/16/20 21:00 07/20/20 09:15 Metoprolol Tartrate 50 Mg Tab PEG/G-TUBE 75 mg BID@899,2099 LUPE Administration Objective - Vital Signs Vital signs: Vital Signs Temp 98.2 F 07/20/20 08:30 Pulse 100 07/20/20 11:23 Resp 20 07/20/20 08:30 BP 124/81 07/20/20 08:30 Pulse Ox 92 L 07/20/20 08:30 Intake & Output 07/19/20 07/20/20 07/20/20 18:59 06:59 18:59 Intake Total 0 100 Output Total 900 375 Balance -900 -275 Weight 52 kg 45 kg Intake: Intake, IV Titration 100 Amount Piperacillin-Tazobactam 3 100 .375 gm In Sodium Chloride 0.9% 100 ml @ 25 mls/hr IVPB Q8HR [facility] Rx# :[id number] Oral 0 Output: Urine 900 375 Other: Voiding Method Indwelling Catheter Indwelling Catheter Indwelling Catheter # Bowel Movements 1 - Exam -GENERAL: The patient is alert and nonverbal. Does not look in respiratory distress. Loss of weight HEENT: Pupils are round and equally reacting to light. EOMI. No scleral icterus. No conjunctival pallor. Normocephalic, atraumatic. No pharyngeal erythema. No thyromegaly. CARDIOVASCULAR: S1 and S2 present. No murmurs, rubs, or gallops. -PULMONARY: Chest is clear to auscultation, bilateral good harsh breath sounds with secretions more on the right side ABDOMEN: Soft, nontender, nondistended, normoactive bowel sounds. No palpable organomegaly. MUSCULOSKELETAL: No joint swelling or deformity. EXTREMITIES: No cyanosis, clubbing, or pedal edema. NEUROLOGICAL: Gross neurological examination did not reveal any focal deficits. SKIN: No rashes. no petechiae. - Labs CBC & Chem 7: 07/19/20 07:27 07/19/20 07:27 Labs: Abnormal Lab Results - Last 24 Hours (Table) 07/19/20 07/19/20 07/19/20 Range/Units 11:53 16:48 20:50 POC Glucose (mg/dL) 139 H 145 H 125 H (75-99) mg/dL 07/20/20 Range/Units 06:21 POC Glucose (mg/dL) 111 H (75-99) mg/dL Microbiology - Last 24 Hours (Table) 07/16/20 11:00 Blood Culture - Preliminary Blood No Growth after 72 hours Assessment and Plan Assessment: aspiration pneumonitis, recurrent Metabolic encephalopathy secondary to above Loss of weight. His BMI is 14.7 multiple sclerosis Moderate to severe coronary protein malnutrition History of DVT History of GERD Hypertension Gait dysfunction secondary to multiple sclerosis Osteoarthritis Plan: This is a pleasant 60 years old male who presents with respiration pneumonia. Continue with antibiotics as per infectious disease team recommendation. Follow-up culture results. hold feeding for another 24-48 hours. Cardiology is been consulted from ED. Start the patient on TPN via PICC line. Labs and medication were reviewed.. Continue same treatment. Continue with symptomatic treatment. Resume home medication. Monitor lytes and vitals. DVT and GI prophylaxis. Further recommendationsas per clinical course of the patient DVT prophylaxis: Subcutaneous heparin GI Prophylaxis: Pepcid Short-term and long-term Prognosis is guarded Discussed with the staff
[2020-07-20 12:01] LABS: Glucose,Whole Blood 121 mg/dL (75-99)
--- NOTE | 2020-07-20 12:54 | PN ---
PROGRESS NOTE DATE OF SERVICE: 07/20/2020 REASON FOR FOLLOWUP: Aspiration pneumonia. INTERVAL HISTORY: The patient is currently afebrile. Patient is breathing comfortably, hemodynamically stable. Tube feed is currently on hold. No vomiting or diarrhea has been reported by the nursing staff. PHYSICAL EXAM: Blood pressure 113/76, pulse 100, temperature 98.4, he is 95% on 2 L nasal cannula. General description is a middle-aged male, lying in bed in no distress. RESPIRATORY SYSTEM: Unlabored breathing, decreased breath sounds, no wheeze. HEART: S1, S2. Regular rate and rhythm. ABDOMEN: Soft, no tenderness. LABS: No new labs have been obtained today. Blood culture has been negative. Chest x-ray completed this morning improved aeration at the right lung base. DIAGNOSTIC IMPRESSION AND PLAN: Patient with right lower lobe pneumonia, likely aspiration etiology. X-ray this morning did show improvement. He is on Zosyn to continue for another 7-10 days to finish a course of therapy. MMODL / IJN: [id number] /
--- NOTE | 2020-07-20 14:00 | CDI ---
Documentation Clarification Form Date: 07/20/2020 01:47:19 PM From: Jaja AndersEspañaDARRON cote, CCDS Admit Date: 07/16/2020 12:27:00 PM Patient Name: Chris Marvin Visit Number: [id number] Discharge Date: ATTENTION: The Clinical Documentation Specialists (CDI) and [facility] Coding Staff appreciate your assistance in clarifying documentation. Please respond to the clarification below the line at the bottom and electronically sign. The CDI & [facility] Coding staff will review the response and follow-up if needed. Please note: Queries are made part of the Legal Health Record. If you have any questions, please contact the author of this message via ITS. Dr. Avila Bardales. Sheet: Per the 07/16 History & Physical and subsequent Attending Physician Progress Notes: "Moderate to Severe ( ) Protein Malnutrition" and Loss of weight with BMI 14.7" is documented. History/Risk Factors: Recurrent admissions for UTIs & Aspiration Pneumonia, MS, Cognitive Impairment, Dysphagia & PEG tube, DVT, GERD, Hypertension, Gait dysfunction, IDC & Incontinent of Bowel, Contractures, Osteoarthritis. Clinical Indicators: Patient presented to the ED on 07/16 with SOB & fever, altered mental status via EMS. Admitted with Acute Pulmonary Edema, Aspiration Pneumonia & Metabolic Encephalopathy. Labs 07/16: Total protein 6.3, Albumin 2.7*. Current BMI: 14.7 Dietitian Assessment 07/16: NPO: enteral Nutrition, Recent lengly admission to [facility]. Nutrition intake: poor, Difficulty Swallowing. Wt: 60.5, Ht 5 ft 9 in. BMI: 19.7 (normal). % Mccall body Weight 83%. Acute severe malnutrition. 14% involuntary weight loss <3 months. 07/19: Wt: 52 kg, BMI: 16.9, Underweight, % Mccall Body Weight: 72%. Acute severe malnutrition. Treatment 07/16: Monitor tube feedings. IV Ibuprofen, IV Lasix, IV Rocephin, Nitropaste, INH Albuterol, Heparin sq, IV Zosyn, IV Pepcid. In your professional opinion, can you please clarify the specific severity of the patient's malnutrition: Moderate Protein-Calorie Malnutrition Severe Protein-Calorie Malnutrition Other condition, please specify Unable to determine (Last Revision: March 2019) moderate to Severe Protein-Calorie Malnutrition MTDD
--- NOTE | 2020-07-20 15:00 | XR ---
EXAMINATION TYPE: XR abdomen complete w decub DATE OF EXAM: 07/20/2020 COMPARISON: 08/21/2019 HISTORY: 60-year-old male rule out ileus TECHNIQUE: Supine, upright, and left side down lateral decubitus views of the abdomen are obtained. FINDINGS: PICC line tip in the lower right atrium. Asymmetric elevation right hemidiaphragm. No evidence for fr ee intraperitoneal air. A PEG tube is present. Scattered colonic air throughout. No dilated small bowel or air-fluid levels a re seen. Mild stool within the right side of the colon. Moderate to severe degenerative change right hip. Extensive chronic posttraumatic or postinfectious d eformity to the left hip with discontinuous bone at the femoral neck region. Pelvic phleboliths. IMPRESSION: There is scattered colonic air and mild stool in the right side of the colon. No dilated bowel identi fied to suggest ileus at this time.
[2020-07-20 15:25] LABS: Albumin 3.6 g/dL (3.5-5.0); Calcium 9.2 mg/dL (8.4-10.2); Magnesium 2.5 mg/dL (1.6-2.3); Phosphorus 5.2 mg/dL (2.5-4.5); Potassium 3.9 mmol/L (3.5-5.1); Total Bilirubin 0.4 mg/dL (0.2-1.3); Total Protein 7.6 g/dL (6.3-8.2)
[2020-07-20 17:20] LABS: Glucose,Whole Blood 112 mg/dL (75-99)
[2020-07-20] MEDS: [UNRECOGNIZED DRUG - REMARK] IV SCH ×5 (20:03)
[2020-07-20 20:16] LABS: Glucose,Whole Blood 107 mg/dL (75-99)
[2020-07-21 01:23] LABS: Glucose,Whole Blood 132 mg/dL (75-99)
[2020-07-21 01:31] LABS: ABG Base Excess 2.6 mmol/L; ABG HCO3 26 mmol/L (21-25); ABG Oxygen Saturation 68.6 % (94-97); ABG PCO2 32 mmHg (35-45); ABG PH 7.51 (7.35-7.45); ABG TCO2 27 mmol/L (19-24); Allen Test Performed? Yes
[2020-07-21] MEDS ORDERED: propofoL 100 ML IV ONE (01:43)
[2020-07-21 01:52] LABS: Glucose,Whole Blood 136 mg/dL (75-99)
--- NOTE | 2020-07-21 02:26 | XR ---
EXAM: XR Chest, 1 View CLINICAL HISTORY: ITS.REASON XR Reason: Tube placement TECHNIQUE: Frontal view of the chest. COMPARISON: 07/19/2020 IMPRESSION: ET tube terminates 5 cm from the stephany. Right PICC line terminates in the right atrium. Worsened right lung opacity now involving the upper and lower lobes.
[2020-07-21 02:48] LABS: ABG Base Excess 1.1 mmol/L; ABG HCO3 25 mmol/L (21-25); ABG Oxygen Saturation 81.8 % (94-97); ABG PCO2 35 mmHg (35-45); ABG PH 7.46 (7.35-7.45); ABG TCO2 26 mmol/L (19-24); Allen Test Performed? Yes
[2020-07-21 02:51] LABS: ABG PO2 46 mmHg (83-108)
[2020-07-21 03:51] LABS: Basophils # (A) 0.1 k/uL (0-0.2); Basophils % (A) 0 %; Eosinophils # (A) 0.1 k/uL (0-0.7); Eosinophils % (A) 0 %; HCT 43.7 % (39.0-53.0); Hypochromasia Marked; Lymphocytes # (A) 0.8 k/uL (1.0-4.8); Lymphocytes % (A) 5 %; MCH 27.6 pg (25.0-35.0); MCHC 29.8 g/dL (31.0-37.0); MCV 92.3 fL (80.0-100.0); Mean Platelet Volume 7.7; Monocytes # (A) 0.9 k/uL (0-1.0); Monocytes % (A) 5 %; Neutrophils # (A) 15.6 k/uL (1.3-7.7); Neutrophils % (A) 89 %; Platelet Count 843 k/uL (150-450); RBC 4.73 m/uL (4.30-5.90); RDW 15.5 % (11.5-15.5); WBC 17.6 k/uL (3.8-10.6)
[2020-07-21] MEDS: carBAMazepine 200 MG TAB PEG/G-TUBE SCH ×2 (03:55→16:37)
[2020-07-21 04:05] LABS: Albumin 3.7 g/dL (3.5-5.0); Calcium 9.3 mg/dL (8.4-10.2); Magnesium 2.3 mg/dL (1.6-2.3); Phosphorus 4.5 mg/dL (2.5-4.5); Potassium 3.8 mmol/L (3.5-5.1)
[2020-07-21] MEDS: BACLOFEN 10 MG TAB PEG/G-TUBE SCH ×3 (07:09→21:25)
[2020-07-21] MEDS: ALBUTEROL NEBULIZED 2.5 MG/3 ML INHALATION PRN ×4 (07:36→20:23)
[2020-07-21] MEDS ORDERED: CISATRACURIUM 2 MG/ML 5 ML VIAL IV ONE (08:42)
[2020-07-21] MEDS ORDERED: FAT EMULSION 20% 250 ML in EMPTY BAG 1 BAG IV SCH (09:00)
--- NOTE | 2020-07-21 09:04 | XR ---
EXAMINATION TYPE: XR chest 1V DATE OF EXAM: 07/21/2020 CLINICAL HISTORY: f/u. TECHNIQUE: Portable semiupright view of the chest. COMPARISON: 07/21/2020 chest radiograph at 1:52 AM FINDINGS: Endotracheal tube distal tip at the level of the clavicular heads. Right distal tip at the cavoatrial junction. Enteric tube has been placed with nonvisualization of the distal tip, however s sandra-port overlies the upper quadrant over the projected area of the stomach. The cardiomediastinal si lhouette is within normal limits for size. There is improved aeration of the right upper lobe. Persis tent focal airspace opacity of the right middle lobe. No pleural effusion, or pneumothorax seen. The osseous structures are intact. IMPRESSION: 1. Improved aeration of the right upper lobe versus comparison at 1:52 AM. Persistent right middle l obe focal airspace opacity. 2. Enteric tube with nonvisualization of the distal tip, however side-port overlie the stomach.
[2020-07-21 09:13] LABS: ABG HCO3 24 mmol/L (21-25); ABG PCO2 39 mmHg (35-45); ABG PO2 >400 mmHg (83-108); ABG TCO2 25 mmol/L (19-24)
[2020-07-21 09:32] LABS: Allen Test Performed? NO
--- NOTE | 2020-07-21 10:08 | CDI ---
Documentation Clarification Form Date: 07/26/2020 03:41PM From: Jaja AndersEspañaDARRON cote, CCDS Admit Date: 07/16/2020 12:27:00 PM Patient Name: Chris Marvin Visit Number: [id number] Discharge Date: ATTENTION: The Clinical Documentation Specialists (CDI) and [facility] Coding Staff appreciate your assistance in clarifying documentation. Please respond to the clarification below the line at the bottom and electronically sign. The CDI & [facility] Coding staff will review the response and follow-up if needed. Please note: Queries are made part of the Legal Health Record. If you have any questions, please contact the author of this message via ITS. Dr. Carey, Conflicting documentation has been found in the medical record. 07/21& 07/[address] Pugh Severe protein calorie malnutrition. 07/23, 07/24 & 07/[address] Crowe Severe protein calorie malnutrition. 07/26 Your Progress Note Moderate protein calorie malnutrition. History/Risk Factors: Recurrent admissions for UTIs & Aspiration Pneumonia, MS, Cognitive Impairment, Dysphagia & PEG tube, DVT, GERD, Hypertension, Gait dysfunction, IDC & Incontinent of Bowel, Contractures, Osteoarthritis. Clinical Indicators: Patient presented to the ED on 07/16 with SOB & fever, altered mental status via EMS. Admitted with Acute Pulmonary Edema, Aspiration Pneumonia & Metabolic Encephalopathy. Labs 07/16: Total protein 6.3, Albumin 2.7*. Current BMI: 14.7 Dietitian Assessment 07/16: NPO: enteral Nutrition, Recent lengly admission to [facility]. Nutrition intake: poor, Difficulty Swallowing. Wt: 60.5, Ht 5 ft 9 in. BMI: 19.7 (normal). % [place]strander body Weight 83%. Acute severe malnutrition. 14% involuntary weight loss <3 months. 07/19: Wt: 52 kg, BMI: 16.9, Underweight, % [place] Body Weight: 72%. Acute severe malnutrition. Treatment 07/16: Monitor tube feedings. IV Ibuprofen, IV Lasix, IV Rocephin, Nitropaste, INH Albuterol, Heparin sq, IV Zosyn, IV Pepcid. In your professional opinion, can you please clarify the severity of the patient's malnutrition: Moderate Protein-Calorie Malnutrition Severe Protein-Calorie Malnutrition Other condition, please specify Unable to determine (Last Revision: March 2019) That's my assessment. This query is not necessary MTDD
--- NOTE | 2020-07-21 10:13 | P.CNPUL ---
History of Present Illness Consult date: 07/21/20 Requesting physician: Chris Pugh Reason for consult: other (Ventilator/critical care management) Chief complaint: Shortness of breath History of present illness: This is a 60-year-old gentleman with a known history of multiple sclerosis, PEG tube placement, recurrent urinary tract infections, sepsis, hypertension, severe cognitive impairment, bowel and urinary incontinence, neurogenic bladder, previous pneumonias. He had recently been in [facility] and on the mechanical vent. He was discharged to an extended care facility for 1 day and then was brought back to our emergency room here on 07/16/2020. He was admitted for acute pulmonary edema to the selective care unit. Earlier this morning and A team was called as he developed increasing shortness of breath, tachycardia, t achypnea he was subsequently intubated and transferred to the intensive care unit. We are seeing him today in consultation. He is on the mechanical ventilator at assist control rate of 20, tidal volume 450, FiO2 100% and a PEEP of 10. Earlier blood gases revealed a pO2 of 46, pCO2 of 35 minutes pH is 7.45. He is on the Rachelle at 30 mcg/kg/m. Receiving TPN for nutrition currently at 30 MLS per hour with a goal of 75. 0.9#and 40 ML's per hour. Chest x-ray reveals persistent right middle lobe focal airspace density. Blood culture and sputum cultures pending. White count 17.6. Hemoglobin 13.0. Sodium 146. Potassium 3.8. Creatinine 1.23. He is currently on Lasix 40 mg every 12 hours, heparin for DVT prophylaxis, Pepcid for GI prophylaxis. He is on Keppra and Vimpat for his history of seizures. Antibiotics in the form of Zosyn. Review of Systems ROS unobtainable: due to endotracheal tube Past Medical History Past Medical History: Deep Vein Thrombosis (DVT), GERD/Reflux, Hypertension, Musculoskeletal Disorder, Neurologic Disorder, Pneumonia, Skin Disorder Additional Past Medical History / Comment(s): Pt recently hospitalized at [facility] for extensive stay with seizure/pneumonia/UTI with sepsis/respirtory failure/vented-Pt diagnosed with multiple sclerosis at the age of 20 yrs, cognitive impairment, sister states when he is feeling well he could speak a few words/nod head appropriately/give thumbs up/roll eyes but when ill is nonverbal, pt has dysphagia/NPO with peg tube, contractures, trigeminal neuralgia, dysarthria/anarthria/neurogenic bladder with IDC-UTIs/sepsis, multiple pneumonias, recent seizure-last one 07/03/20, incontinent of stool, pt has had decubitus ulcer coccyx-sister unsure of skin condition at this time, past anemia r/t heparin/epistaxiis which involved nasal packing/transfusions, DVT bilateral arms. History of Any Multi-Drug Resistant Organisms: ESBL, MRSA Date of last positivie culture/infection: 09/13/19-MRSA; 11/23/19 ESBL-E.coli MDRO Source:: Broch lavage-Mrsa; Urine -ESBL Past Surgical History: Tonsillectomy Additional Past Surgical History / Comment(s): Gastrostomy, peg tube, I&D coccyx decubitius, bilateral lasik eye surgery. Past Anesthesia/Blood Transfusion Reactions: No Reported Reaction Additional Past Anesthesia/Blood Transfusion Reaction / Comment(s): Pt has received blood in past without reaction. Smoking Status: Never smoker - Past Family History Father Family Medical History: Myocardial Infarction ([place]) Additional Family Medical History / Comment(s): Father is at the age of 86 yrs while on heparin/bled, he had a mild [place] Mother Family Medical History: Hypertension, Myocardial Infarction ([place]) Additional Family Medical History / Comment(s): Mother of a [place] at the age of 73 yrs. Medications and Allergies Home Medications Medication Instructions Recorded Confirmed Type Amantadine 50mg/5ml 100 mg PEG/G-TUBE Q12H 12/28/17 07/16/20 History Cholecalciferol [Vitamin D3 (25 1,000 unit PEG/G-TUBE DAILY 12/28/17 07/16/20 History Mcg = 1000 Iu)] Docusate Oral Soln [Colace Oral 200 mg PEG/G-TUBE Q12H PRN 12/28/17 07/16/20 History Soln] guaiFENesin [guaiFENesin Oral 200 mg PEG/G-TUBE Q6H PRN 12/28/17 07/16/20 History Solution] Acetaminophen Oral Susp [Tylenol] 320 mg PEG/G-TUBE Q6H PRN 01/26/19 07/16/20 History Omeprazole Magnesium [PriLOSEC 20 mg PEG/G-TUBE DAILY 01/26/19 07/16/20 History Oral Susp] carBAMazepine [carBAMazepine Oral 100 mg PEG/G-TUBE Q12H 04/15/19 07/16/20 Histo ry Susp] Cranberry Fruit Extract [Cranberry] 500 mg PEG/G-TUBE Q12H 06/03/19 07/16/20 History Metoprolol Tartrate [Lopressor] 75 mg PEG/G-TUBE BID@0900,2100 07/29/19 07/16/20 History Oxybutynin Chloride [Ditropan Oral 5 mg PEG/G-TUBE TID@0600,1400,2200 09/08/19 07/16/20 History Soln] polyethylene glycoL 3350 [Miralax] 17 gm PEG/G-TUBE HS PRN 09/08/19 07/16/20 History Ipratropium-Albuterol Nebulize 3 ml INHALATION RT-QID PRN 12/16/19 07/16/20 History [Duoneb 0.5 mg-3 mg/3 ml Soln] Albuterol Sulfate [Proair Hfa] 2 puff INHALATION RT-Q4H PRN 04/14/20 07/16/20 History Aspirin 81 mg PEG/G-TUBE DAILY chew 04/15/20 07/16/20 Rx Baclofen [Lioresal] 10 mg PEG/G-TUBE TID@0600,1400,2200 07/16/20 07/16/20 History Hydrocerin Cream 1 applic TOPICAL BID@0900,2100 07/16/20 07/16/20 History Lacosamide [Vimpat] 150 mg PEG/G-TUBE BID@0900,209907/16/20 07/16/20 History Piperacillin-Tazobactam [Zosyn] 3.375 gm IVPB TID@0600,1400,2200 07/16/20 07/16/20 History Pulmocare 1.5 1,105 ml PEG/G-TUBE DIRECTED 07/16/20 07/16/20 History Vancomycin 1,500 mg IV Q24HR 07/16/20 07/16/20 History levETIRAcetam [levETIRAcetam Oral 200 mg PEG/G-TUBE BID@0900,2100 07/16/20 1 History Soln] Allergies Allergy/AdvReac Type Severity Reaction Status Date / Time meropenem [From Merrem] Allergy Rash/Hives Verified 07/16/20 11:01 Physical Exam Vitals: Vital Signs Temp Pulse Pulse Resp BP BP Pulse Ox 07/21/20 07:47 130 H 07/21/20 07:37 130 H 07/21/20 07:00 131 H 27 H 109/42 99 07/21/20 06:30 131 H 23 100/42 98 07/21/20 06:00 133 H 28 H 106/74 100 07/21/20 05:30 135 H 23 100 07/21/20 05:00 135 H 37 H 95/80 99 07/21/20 04:30 135 H 15 92/77 99 07/21/20 04:00 97.5 F L 137 H 14 116/89 100 07/21/20 03:30 138 H 36 H 84 L 07/21/20 03:00 134 H 16 114/86 96 07/21/20 02:50 137 H 35 H 114/86 83 L 07/21/20 02:40 137 H 33 H 114/86 84 L 07/21/20 02:30 137 H 35 H 124/111 99 07/21/20 02:20 134 H 23 124/111 99 07/21/20 02:10 135 H 9 L 120/67 96 07/21/20 02:00 131 H 43 H 144/92 71 L 07/21/20 01:50 140 H 63 H 60 L 07/21/20 01:40 137 H 38 H 130/92 69 L 07/21/20 01:39 137 H 34 H 132/91 07/20/20 23:14 116 H 23 07/20/20 23:12 97.7 F 116 H 23 124/84 92 L 07/20/20 20:16 98 07/20/20 20:03 96 07/20/20 20:00 98.7 F 113 H 19 122/83 92 L 07/20/20 17:13 107 H 22 07/20/20 16:15 96 07/20/20 16:04 94 07/20/20 15:40 97.9 F 93 20 113/83 94 L 07/20/20 12:00 98.4 F 100 20 113/76 95 07/20/20 11:23 100 07/20/20 11:12 96 Intake and Output 07/20/20 07/21/20 07/21/20 22:59 06:59 14:59 Intake Total 0 280 70 Output Total 1200 845 5 Balance -1200 -565 65 Intake: IV 280 70 0.9% Na 160 40 Potassium Acetate 20 meq 120 30 Calcium Gluconate 1 gm Mvi, Adult No.4 with Vit K 10 ml Trace (Conc-1Ml/ Dose) 1 ml In Amino Acid 5%-D15w 1,000 ml @ 30 mls /hr IV .Q24H [facility] Rx#: [id number] Oral 0 Output: Urine 1200 845 5 Other: Voiding Method Indwelling Catheter Indwelling Catheter # Bowel Movements 0 Weight 55 kg GENERAL EXAM: Intubated, sedated frail-looking 60-year-old gentleman, comfortable in no apparent distress. HEAD: Normocephalic. EYES: Sluggish reaction of pupils, equal size. NOSE: Clear with pink turbinates. THROAT: Oral endotracheal and gastric tube secured in place. No erythema or exudates. NECK: No masses, no JVD. CHEST: No chest wall deformity. LUNGS: Equal air entry with bilateral scattered rhonchi more so on the right. CVS: S1 and S2 normal with no audible murmur, regular rhythm. ABDOMEN: No hepatosplenomegaly, normal bowel sounds, no guarding or rigidity. SPINE: No scoliosis or deformity SKIN: No rashes CENTRAL NERVOUS SYSTEM: No focal deficits, tone is normal in all 4 extremities. EXTREMITIES: Contractures. There is no peripheral edema. No clubbing, no cyanosis. Peripheral pulses are intact. Results - Laboratory Findings CBC and BMP: 07/21/20 02:56 07/21/20 02:56 ABG ABG pH 7.40 (7.35-7.45) 07/21/20 09:10 ABG pCO2 39 mmHg (35-45) 07/21/20 09:10 ABG pO2 >400 mmHg (83-108) H 07/21/20 09:10 ABG O2 Saturation 100.0 % (94-97) H 07/21/20 09:10 PT/INR, D-dimer PT 10.2 sec (9.0-12.0) 07/16/20 10:35 INR 1.0 (<1.2) 07/16/20 10:35 Abnormal lab findings: Abnormal Labs 07/16/20 07/16/20 07/16/20 10:35 10:35 10:35 WBC RBC 3.74 L Hgb 10.4 L D Hct 33.2 L MCHC RDW 15.8 H Plt Count 775 H D Neutrophils # Lymphocytes # ABG pH ABG pCO2 ABG pO2 ABG HCO3 ABG Total CO2 ABG O2 Saturation Sodium Chloride 108 H Carbon Dioxide Glucose 103 H POC Glucose (mg/dL) Plasma Lactic Acid Taurus Calcium 8.2 L Phosphorus Magnesium C-Reactive Protein 36.5 H Albumin 2.7 L Triglycerides Urine Protein Urine Blood Urine RBC Urine Bacteria Urine Mucus 07/16/20 07/16/20 07/17/20 10:36 11:30 07:28 WBC RBC 3.87 L Hgb 10.7 L Hct 34.9 L MCHC 30.8 L RDW 15.6 H Plt Count 758 H Neutrophils # Lymphocytes # ABG pH ABG pCO2 ABG pO2 ABG HCO3 ABG Total CO2 ABG O2 Saturation Sodium Chloride Carbon Dioxide Glucose POC Glucose (mg/dL) Plasma Lactic Acid Taurus 0.6 L Calcium Phosphorus Magnesium C-Reactive Protein Albumin Triglycerides Urine Protein Trace H Urine Blood Trace H Urine RBC 18 H Urine Bacteria Rare H Urine Mucus Rare H 07/17/20 07/17/20 07/17/20 07:28 11:55 17:11 WBC RBC Hgb Hct MCHC RDW Plt Count Neutrophils # Lymphocytes # ABG pH ABG pCO2 ABG pO2 ABG HCO3 ABG Total CO2 ABG O2 Saturation Sodium Chloride 109 H Carbon Dioxide 20 L Glucose 101 H POC Glucose (mg/dL) 104 H 110 H Plasma Lactic Acid Taurus Calcium Phosphorus Magnesium C-Reactive Protein Albumin Triglycerides Urine Protein Urine Blood Urine RBC Urine Bacteria Urine Mucus 07/17/20 07/18/20 07/18/20 20:24 06:32 06:45 WBC RBC 4.00 L Hgb 11.2 L Hct 35.7 L MCHC RDW Plt Count 804 H Neutrophils # Lymphocytes # ABG pH ABG pCO2 ABG pO2 ABG HCO3 ABG Total CO2 ABG O2 Saturation Sodium Chloride Carbon Dioxide Glucose POC Glucose (mg/dL) 101 H 112 H Plasma Lactic Acid Taurus Calcium Phosphorus Magnesium C-Reactive Protein Albumin Triglycerides Urine Protein Urine Blood Urine RBC Urine Bacteria Urine Mucus 07/18/20 07/18/20 07/18/20 06:45 12:08 17:03 WBC RBC Hgb Hct MCHC RDW Plt Count Neutrophils # Lymphocytes # ABG pH ABG pCO2 ABG pO2 ABG HCO3 ABG Total CO2 ABG O2 Saturation Sodium Chloride 108 H Carbon Dioxide Glucose 127 H POC Glucose (mg/dL) 127 H 128 H Plasma Lactic Acid Taurus Calcium Phosphorus Magnesium C-Reactive Protein Albumin Triglycerides Urine Protein Urine Blood Urine RBC Urine Bacteria Urine Mucus 07/18/20 07/19/20 07/19/20 20:33 06:11 07:27 WBC RBC 4.07 L Hgb 11.2 L Hct 36.4 L MCHC 30.8 L RDW Plt Count 793 H Neutrophils # Lymphocytes # ABG pH ABG pCO2 ABG pO2 ABG HCO3 ABG Total CO2 ABG O2 Saturation Sodium Chloride Carbon Dioxide Glucose POC Glucose (mg/dL) 133 H 150 H Plasma Lactic Acid Taurus Calcium Phosphorus Magnesium C-Reactive Protein Albumin Triglycerides Urine Protein Urine Blood Urine RBC Urine Bacteria Urine Mucus 07/19/20 07/19/20 07/19/20 07:27 11:53 16:48 WBC RBC Hgb Hct MCHC RDW Plt Count Neutrophils # Lymphocytes # ABG pH ABG pCO2 ABG pO2 ABG HCO3 ABG Total CO2 ABG O2 Saturation Sodium Chloride 109 H Carbon Dioxide Glucose 139 H POC Glucose (mg/dL) 139 H 145 H Plasma Lactic Acid Taurus Calcium Phosphorus Magnesium C-Reactive Protein Albumin Triglycerides Urine Protein Urine Blood Urine RBC Urine Bacteria Urine Mucus 07/19/20 07/20/20 07/20/20 20:50 06:21 11:59 WBC RBC Hgb Hct MCHC RDW Plt Count Neutrophils # Lymphocytes # ABG pH ABG pCO2 ABG pO2 ABG HCO3 ABG Total CO2 ABG O2 Saturation Sodium Chloride Carbon Dioxide Glucose POC Glucose (mg/dL) 125 H 111 H 121 H Plasma Lactic Acid Taurus Calcium Phosphorus Magnesium C-Reactive Protein Albumin Triglycerides Urine Protein Urine Blood Urine RBC Urine Bacteria Urine Mucus 07/20/20 07/20/20 07/20/20 14:59 17:05 20:15 WBC RBC Hgb Hct MCHC RDW Plt Count Neutrophils # Lymphocytes # ABG pH ABG pCO2 ABG pO2 ABG HCO3 ABG Total CO2 ABG O2 Saturation Sodium 147 H Chloride 111 H Carbon Dioxide Glucose 122 H POC Glucose (mg/dL) 112 H 107 H Plasma Lactic Acid Taurus Calcium Phosphorus 5.2 H Magnesium 2.5 H C-Reactive Protein Albumin Triglycerides 187 H Urine Protein Urine Blood Urine RBC Urine Bacteria Urine Mucus 07/21/20 07/21/20 07/21/20 01:20 01:29 01:51 WBC RBC Hgb Hct MCHC RDW Plt Count Neutrophils # Lymphocytes # ABG pH 7.51 H ABG pCO2 32 L ABG pO2 34 L* ABG HCO3 26 H ABG Total CO2 27 H ABG O2 Saturation 68.6 L Sodium Chloride Carbon Dioxide Glucose POC Glucose (mg/dL) 132 H 136 H Plasma Lactic Acid Taurus Calcium Phosphorus Magnesium C-Reactive Protein Albumin Triglycerides Urine Protein Urine Blood Urine RBC Urine Bacteria Urine Mucus 07/21/20 07/21/20 07/21/20 02:44 02:56 02:56 WBC 17.6 H RBC Hgb Hct MCHC 29.8 L RDW Plt Count 843 H Neutrophils # 15.6 H Lymphocytes # 0.8 L ABG pH 7.46 H ABG pCO2 ABG pO2 46 L* ABG HCO3 ABG Total CO2 26 H ABG O2 Saturation 81.8 L Sodium 146 H Chloride 111 H Carbon Dioxide Glucose 174 H POC Glucose (mg/dL) Plasma Lactic Acid Taurus Calcium Phosphorus Magnesium C-Reactive Protein Albumin Triglycerides Urine Protein Urine Blood Urine RBC Urine Bacteria Urine Mucus 07/21/20 09:10 WBC RBC Hgb Hct MCHC RDW Plt Count Neutrophils # Lymphocytes # ABG pH ABG pCO2 ABG pO2 >400 H ABG HCO3 ABG Total CO2 25 H ABG O2 Saturation 100.0 H Sodium Chloride Carbon Dioxide Glucose POC Glucose (mg/dL) Plasma Lactic Acid Taurus Calcium Phosphorus Magnesium C-Reactive Protein Albumin Triglycerides Urine Protein Urine Blood Urine RBC Urine Bacteria Urine Mucus - Diagnostic Findings Chest x-ray: image reviewed Assessment and Plan Assessment: 1 Acute hypoxic respiratory failure secondary to aspiration pneumonia and fluid volume overload requiring intubation mechanical ventilatory support on 07/21/2020 2 Metabolic encephalopathy in a patient with a known history of severe cognitive impairment 3 History of multiple sclerosis 4 Moderate to severe protein calorie malnutrition secondary to above him a status post PEG tube placement 5 History of seizures 6 Multiple admissions for aspiration pneumonia and urinary tract infections 7 History of DVT 8 History of GERD 9 History of hypertension 10 Osteoarthritis 11 History of neurogenic bladder 12 Poor overall functional performance based on the above-mentioned multiple comorbidities. Plan: The patient was seen and evaluated by Dr. Hawkins Chest x-ray, ABGs and labs reviewed Left subclavian central line inserted Right femoral arterial line inserted Repeat arterial blood gases revealed a PaO2 greater than 400, CO2 39, pH 7.40 Titrate down the FiO2 to 40%, wean the PEEP back down to 5 Continue nutritional support Overall prognosis remains quite poor and guarded We will continue to follow and make further recommendations based on his clinical status I, the cosigning physician, performed a history & physical examination of the patient. Lungs sounds with bilateral scattered rhonchi more so on the right. Maintaining good O2 saturations in the 90s on 40% FiO2 via the mechanical ventilator. I discussed the assessment and plan of care with my nurse practitioner, Angela Hendrix. I attest to the above note as dictated by her. Time with Patient: Greater than 30
[2020-07-21] MEDS ORDERED: Potassium Replacement Protocol 1 EACH MISC MISCELLANE PRN (10:19)
[2020-07-21] MEDS ORDERED: SODIUM CHLORIDE 0.9% 1,000 ML IV ONE (10:21)
[2020-07-21] MEDS: CHLORHEXIDINE GLUCONATE 15 ML CUP MUCOUS MEM SCH ×2 (10:23→21:22)
[2020-07-21] MEDS: LACOSAMIDE 150 MG TABLET PEG/G-TUBE SCH ×2 (10:23→21:22)
[2020-07-21] MEDS: HEPARIN SODIUM,PORCINE 5,000 UNIT/ML 1 ML VIAL SQ SCH ×2 (10:23→21:25)
[2020-07-21] MEDS: levETIRAcetam ORAL SOLN 500 MG/5 ML CUP PEG/G-TUBE SCH ×2 (10:23→21:24)
[2020-07-21] MEDS: FUROSEMIDE 10 MG/ML 4 ML VIAL IV SCH ×3 (10:24→21:25)
[2020-07-21] MEDS: FAMOTIDINE 20 MG/2 ML VIAL IV SCH ×2 (10:25→21:22)
[2020-07-21] MEDS: ASPIRIN 81 MG PEG/G-TUBE SCH (10:25)
[2020-07-21] MEDS: PIPERACILLIN-TAZOBACTAM 3.375 GM in SODIUM CHLORIDE 0.9% 100 ML IVPB SCH ×2 (10:26→15:52)
[2020-07-21] MEDS: METOPROLOL TARTRATE 50 MG TAB PEG/G-TUBE SCH ×2 (10:29→21:24)
[2020-07-21] MEDS: SODIUM CHLORIDE 0.9% 1,000 ML IV SCH (10:30)
--- NOTE | 2020-07-21 10:40 | XR ---
EXAMINATION TYPE: XR chest 1V portable DATE OF EXAM: 07/21/2020 COMPARISON: Prior chest x-ray same date earlier time HISTORY: Status post central venous catheter placement TECHNIQUE: Single frontal view of the chest is obtained. FINDINGS: There is been interval placement of a left jugular central venous catheter, distal tip lie s over the right atrium. There is no pneumothorax or evident effusion. No other significant change. IMPRESSION: No evident complication status post central venous catheter placement.
[2020-07-21 11:47] LABS: Glucose,Whole Blood 135 mg/dL (75-99)
[2020-07-21] MEDS: INSULIN ASPART (NovoLOG) 100 UNIT/ML VIAL SQ SCH ×2 (12:04→18:27)
[2020-07-21] MEDS: POTASSIUM CHLORIDE 10 MEQ in WATER FOR INJECTION 1 100ML.BAG IVPB SCH ×2 (12:05→13:29)
--- NOTE | 2020-07-21 12:48 | PCN ---
PROCEDURE NOTE OPERATORS: Dr. Hawkins and Dr. Hendrix There was 2 procedures, one is a central line and one is an art line. First, the central line at the left internal jugular triple-lumen catheter. We used a posterior approach. There was no immediate complication, there was good blood return from all 3 ports. The catheter was sutured in place. A sterile dressing was applied by the nurse. The tip of the catheter was noted in the superior vena cava/right atrial junction. There was good blood return from all 3 ports. Again, there was no immediate complication. A chest x-ray was ordered. The reason for the procedure is administration of fluids and pressors. The second procedure is a right femoral artery art line. PREOPERATIVE DIAGNOSIS: Frequent blood draws and blood gas monitoring. POSTOPERATIVE DIAGNOSIS: Frequent blood draws and blood gas monitoring. OPERATORS: Dr. Hawkins and Dr. Hendrix. We used a right femoral artery site. There was no immediate complication. There was good blood return and waveform. The catheter was sutured in place. Sterile dressing was applied by the nurse. There was no immediate complication. Patient tolerated the procedure well. With both these procedures, there was informed consent and universal timeout. MMODL / IJN: [id number] /
[2020-07-21] MEDS: [UNRECOGNIZED DRUG - REMARK] IV SCH ×5 (15:48)
--- NOTE | 2020-07-21 16:17 | P.PN ---
Progress Note - Text Progress Note Date: 07/21/20 60 years old male with multiple medical problems presents with altered mental status secondary to pneumonia, patient has multiple admissions secondary to UTI and aspiration pneumonia. Other medical problems including multiple sclerosis, cognitive impairment and patient is nonverbal, patient has dysphagia and status post PEG tube, DVT of the arm, urine or bowel incontinence. Presents with fever, confusion and altered mental status. Patient could not provide information was obtained from the staff, records. 07/17/2020 Patient lying in bed comfortable, breathing quietly. Nonverbal at baseline. No fever today compared to low-grade fever yesterday. No leukocytosis. Sputum culture is requested. Patient is covered currently with Zosyn 07/18/2020 Patient is nonverbal at baseline, lying comfortable in bed Still tachycardic. No more fevers since yesterday. CBC and BMP are unremarkable Controlled Continue with Zosyn and tube feeding as tolerated 07/19/2020 Patient is nonverbal however he notices still feeling lethargic and weak. His fever subsided and he is saturating 94% on room air Repeat chest x-ray showing Right basilar atelectasis and/or consolidation. Correlate for pneumonia Patient remains currently on Zosyn. Blood culture showed no growth. Sputum culture could not be obtained Patient is followed closely by infectious disease team. We will discuss with ID team, the plan I discussed the case with his sister miss mcnair and all her questions were answered. Discussed with the staff 07/20/2020 Patient remains lethargic and nonverbal, patient had low-grade temperature last night 100.4, blood pressure this morning is 124/81, heart rate 116, temperature 98.2 and breathing at 20 breaths per minute. He does not look in respiratory distress Chest x-ray from today showing improving aeration in the right base, background of mixed interstitial density is similar. Correlate for possible pulmonary vascular congestion. As per radiologist. Patient is already on Lasix IV 40 mg twice daily. Yesterday we stopped his tube feeding for concern of recurrent aspiration, head of bed is elevated all the time. Because of his loss of weight and weakness, I start him on TPN via his PICC line. Yesterday the sister miss ms Chris talked to me and wanted him to be started on IV vancomycin. However when we discuss it with Dr. Agrawal from infectious disease he does not think he needs IV vancomycin. I agree with Dr. Farah as the risk of these medication is more than the benefit at this point. Besides his chest x-ray from today showing improvement aeration while on Zosyn. Blood culture still showed no growth. Sputum culture is ordered but cannot be collected. tube feeding still on hold After I rounded on the patient today, and talked to the staff and the dietitian. I was informed by the heel caser Cynthia that the sister ms Chris wanted a different attending. I discussed the case with Dr. Pugh and he kindly accepted the patient Today-accepted the patient to my service from Dr. raymond. On the visit today patient went into respiratory distress. Code A was called. Patient smoked to the ICU. Intubated. Currently on the ventilator with FiO2 40 and a PEEP of 5. Drips include propofol and TPN. Patient has endotracheal tube and OG tube. Sedated Review of systems-patient intubated Active Medications Acetaminophen (Acetaminophen Tab 325 Mg Tab) 650 mg PO Q6HR PRN PRN Reason: Fever and/ or Pain Albuterol Sulfate (Albuterol Nebulized 2.5 Mg/3 Ml) 2.5 mg INHALATION RT-Q4H PRN PRN Reason: Shortness Of Breath Last Admin: 07/21/20 15:26 Dose: 2.5 mg Documented by: Aspirin (Aspirin 81 Mg) 81 mg PEG/G-TUBE DAILY [facility] Last Admin: 07/21/20 10:25 Dose: 81 mg Documented by: Baclofen (Baclofen 10 Mg Tab) 10 mg PEG/G-TUBE TID@0600,1400,2200 [facility] Last Admin: 07/21/20 13:29 Dose: 10 mg Documented by: Carbamazepine (Carbamazepine 200 Mg Tab) 100 mg PEG/G-TUBE Q12H [facility] Last Admin: 07/21/20 03:55 Dose: 100 mg Documented by: Chlorhexidine Gluconate (Chlorhexidine Gluconate 15 Ml Cup) 15 ml MUCOUS MEM BID [facility] Last Admin: 07/21/20 10:23 Dose: 15 ml Documented by: Famotidine (Famotidine 20 Mg/2 Ml Vial) 10 mg IV Q12HR [facility] Last Admin: 07/21/20 10:25 Dose: 10 mg Documented by: Furosemide (Furosemide 10 Mg/Ml 4 Ml Vial) 40 mg IV Q12H [facility] Last Admin: 07/21/20 13:27 Dose: Not Given Documented by: Heparin Sodium (Porcine) (Heparin Sodium,Porcine 5,000 Unit/Ml 1 Ml Vial) 5,000 unit SQ Q12HR [facility] Last Admin: 07/21/20 10:23 Dose: 5,000 unit Documented by: Piperacillin Sod/Tazobactam (Sod 3.375 gm/ Sodium Chloride) 100 mls @ 25 mls/hr IVPB Q8HR [facility] Last Admin: 07/21/20 15:52 Dose: 25 mls/hr Documented by: Potassium Acetate 20 meq/Calcium Gluconate 1 gm/Parenteral Vitamin Supplement 10 ml/ Chromium/Copper/Manganese/Seleni/Zn 1 ml/Amino Acids/Dextrose 1,031 mls @ 30 mls/hr IV .Q24H [facility] Last Admin: 07/21/20 15:48 Dose: Not Given Documented by: Potassium Acetate 20 meq/Calcium Gluconate 1 gm/Parenteral Vitamin Supplement 10 ml/ Chromium/Copper/Manganese/Seleni/Zn 1 ml/Amino Acids/Dextrose 1,031 mls @ 75 mls/hr IV .BY DURATION [facility] Potassium Acetate 20 meq/Calcium Gluconate 1 gm/ Amino Acids/Dextrose 1,020 mls @ 75 mls/hr IV .BY DURATION [facility] Propofol 1,000 mg/ IV Solution 100 mls @ 0 mls/hr IV .Q0M [facility]; Protocol Last Admin: 07/21/20 07:43 Dose: 30 mcg/kg/min, 9.9 mls/hr Documented by: Sodium Chloride (Saline 0.9%) 1,000 mls @ 40 mls/hr IV .Q24H [facility] Last Admin: 07/21/20 10:30 Dose: 40 mls/hr Documented by: Insulin Aspart (Insulin Aspart (Novolog) 100 Unit/Ml Vial) 0 unit SQ Q6H [facility]; Protocol Last Admin: 07/21/20 12:04 Dose: 1 unit Documented by: Lacosamide (Lacosamide 150 Mg Tablet) 150 mg PEG/G-TUBE BID@0900,2100 [facility] Last Admin: 07/21/20 10:23 Dose: 150 mg Documented by: Levetiracetam (Levetiracetam Oral Soln 500 Mg/5 Ml Cup) 200 mg PEG/G-TUBE BID@0900,2100 [facility] Last Admin: 07/21/20 10:23 Dose: 200 mg Documented by: Metoprolol Tartrate (Metoprolol Tartrate 50 Mg Tab) 75 mg PEG/G-TUBE BID@0900,2100 [facility] Last Admin: 07/21/20 10:29 Dose: 75 mg Documented by: Miscellaneous Information (Potassium Replacement Protocol 1 Each Misc) 1 each MISCELLANE DAILY PRN; Protocol PRN Reason: Per Protocol Potassium Bicarbonate (Potassium Bicarbonate/Cit Ac 20 Meq Tablet.Eff) 20 meq NG-TUBE Q1HR [facility]; Protocol Stop: 07/21/20 17:01 INVESTIGATIONS, reviewed in the clinical context: White count 7.6 hemoglobin 13 platelets 843 potassium 3.8 creatinine 1.23 Chest x-ray film personally reviewed by ia-July 21-right lower lobe infiltrate Previous testin-D echocardiogram EF 60-65% Assessment: -Acute hypoxic respiratory failure secondary to aspiration pneumonia-requiring ventilator support-intubated July 21 -Right lower lobe aspiration pneumonia -Acute on chronic metabolic encephalopathy -Severe cognitive impairment -Chronic advanced multiple sclerosis -Severe protein calorie malnutrition -PEG tube feeding -Chronic DVT including both the arms -GERD -Primary osteoarthritis -Chronic neurogenic bladder-with indwelling catheter -Chronic medical debility -Chronic dysphagia-nothing by mouth -Depression not otherwise specified Plan: Patient ICU. Intubated. On the ventilator. This included propofol. Medications include aspirin, baclofen, Tegretol, IV Lasix, Vimpat, Keppra, Lopressor, IV Zosyn, TPN. Prognosis guarded.
[2020-07-21] MEDS ORDERED: POTASSIUM BICARBONATE/CIT AC 20 MEQ TABLET.EFF NG-TUBE SCH ×2 (17:00→23:00)
[2020-07-21] MEDS ORDERED: [UNRECOGNIZED DRUG - REMARK] IV SCH ×5 (17:00)
[2020-07-21 18:10] LABS: Glucose,Whole Blood 122 mg/dL (75-99)
[2020-07-22] MEDS: PIPERACILLIN-TAZOBACTAM 3.375 GM in SODIUM CHLORIDE 0.9% 100 ML IVPB SCH ×4 (00:24→23:50)
[2020-07-22] MEDS: INSULIN ASPART (NovoLOG) 100 UNIT/ML VIAL SQ SCH ×4 (01:19→17:56)
[2020-07-22 01:20] LABS: Glucose,Whole Blood 128 mg/dL (75-99)
[2020-07-22 04:45] LABS: ABG Base Excess 1.2 mmol/L; ABG HCO3 25 mmol/L (21-25); ABG PCO2 33 mmHg (35-45); ABG PH 7.48 (7.35-7.45); ABG PO2 165 mmHg (83-108); ABG TCO2 26 mmol/L (19-24); Allen Test Performed? Yes
[2020-07-22 05:17] LABS: HCT 28.9 % (39.0-53.0); Hypochromasia Moderate; MCHC 31.1 g/dL (31.0-37.0); MCV 90.1 fL (80.0-100.0); Platelet Count 523 k/uL (150-450); RDW 15.5 % (11.5-15.5); WBC 12.4 k/uL (3.8-10.6)
[2020-07-22 05:26] LABS: Calcium 8.4 mg/dL (8.4-10.2); Magnesium 2.1 mg/dL (1.6-2.3); Phosphorus 2.9 mg/dL (2.5-4.5); Potassium 3.7 mmol/L (3.5-5.1)
[2020-07-22] MEDS: carBAMazepine 200 MG TAB PEG/G-TUBE SCH ×3 (05:53→20:44)
[2020-07-22 05:58] LABS: Glucose,Whole Blood 167 mg/dL (75-99)
[2020-07-22] MEDS ORDERED: POTASSIUM BICARBONATE/CIT AC 20 MEQ TABLET.EFF NG-TUBE SCH (06:00)
[2020-07-22] MEDS: BACLOFEN 10 MG TAB PEG/G-TUBE SCH ×3 (06:03→21:03)
--- NOTE | 2020-07-22 06:58 | XR ---
EXAMINATION TYPE: XR chest 1V portable DATE OF EXAM: 07/22/2020 CLINICAL HISTORY: Difficulty breathing progress study. TECHNIQUE: Single AP portable semiupright view of the chest is obtained. COMPARISON: Chest x-ray from one day earlier and older studies. FINDINGS: Stable endotracheal tube, orogastric tube, and left sided central venous catheter. Stable focal right lower lung consolidation. Background chronic parenchymal change bilaterally. Left lung re rich clear. Cardiac silhouette size stable and within normal limits. Old fracture deformity left pos terior lateral fourth rib redemonstrated. IMPRESSION: Persistent right basilar pneumonic consolidation. No new infiltrate. No significant david e from one day earlier.
[2020-07-22] MEDS: ALBUTEROL NEBULIZED 2.5 MG/3 ML INHALATION PRN ×4 (07:38→20:16)
[2020-07-22] MEDS: levETIRAcetam ORAL SOLN 500 MG/5 ML CUP PEG/G-TUBE SCH (08:23)
[2020-07-22] MEDS: CHLORHEXIDINE GLUCONATE 15 ML CUP MUCOUS MEM SCH ×2 (08:25→20:45)
[2020-07-22] MEDS: METOPROLOL TARTRATE 50 MG TAB PEG/G-TUBE SCH ×2 (08:25→20:44)
[2020-07-22] MEDS: FUROSEMIDE 10 MG/ML 4 ML VIAL IV SCH ×2 (08:25→20:45)
[2020-07-22] MEDS: HEPARIN SODIUM,PORCINE 5,000 UNIT/ML 1 ML VIAL SQ SCH ×2 (08:25→20:45)
[2020-07-22] MEDS: ASPIRIN 81 MG PEG/G-TUBE SCH (08:26)
[2020-07-22] MEDS: FAMOTIDINE 20 MG/2 ML VIAL IV SCH ×2 (08:54→20:45)
--- NOTE | 2020-07-22 09:51 | P.PN ---
Subjective Progress Note Date: 07/22/20 Principal diagnosis: Acute hypoxic respiratory failure secondary to suspected aspiration This is a 60-year-old gentleman with a known history of multiple sclerosis, PEG tube placement, recurrent urinary tract infections, sepsis, hypertension, severe cognitive impairment, bowel and urinary incontinence, neurogenic bladder, previous pneumonias. He had recently been in [facility] and on the mechanical vent. He was discharged to an extended care facility for 1 day and bandar keita was brought back to our emergency room here on 07/16/2020. He was admitted for acute pulmonary edema to the selective care unit. Earlier this morning and A team was called as he developed increasing shortness of breath, tachycardia, tachypnea he was subsequently intubated and transferred to the intensive care unit. We are seeing him today in consultation. He is on the mechanical ventilator at assist control rate of 20, tidal volume 450, FiO2 100% and a PEEP of 10. Earlier blood gases revealed a pO2 of 46, pCO2 of 35 minutes pH is 7.45. He is on the Rachelle at 30 mcg/kg/m. Receiving TPN for nutrition currently at 30 MLS per hour with a goal of 75. 0.9#and 40 ML's per hour. Chest x-ray reveals persistent right middle lobe focal airspace density. Blood culture and sputum cultures pending. White count 17.6. Hemoglobin 13.0. Sodium 146. Potassium 3.8. Creatinine 1.23. He is currently on Lasix 40 mg every 12 hours, heparin for DVT prophylaxis, Pepcid for GI prophylaxis. He is on Keppra and Vimpat for his history of seizures. Antibiotics in the form of Zosyn. The patient is seen today 07/22/2020 in follow-up in the intensive care unit. He remains intubated on the mechanical ventilator with assist control of 20, tidal volume 450, FiO2 40% and a PEEP of 5. Her blood gases reveal pO2 165, CO2 33, pH 7.48. He remains sedated on propofol at 30 mcg/kg/m. Receiving nutrition via TPN currently at 75 ML's per hour with lipids. 0.9 normal saline at 40 ML's per hour. Chest x-ray reveals persistent right basilar pneumonic consolidation. No new infiltrates. No significant change from previous. Blood culture reveals no growth. Sputum culture pending. White count 12.4. Hemoglobin 9.0. Sodium 142. Potassium 3.7. Creatinine 1.28. Continued on IV diuretics. Antibiotics in the form of Zosyn. Objective - Vital Signs Vital signs: Vital Signs Temp 98.2 F 07/21/20 16:00 Pulse 98 07/22/20 08:00 Resp 20 07/22/20 08:00 BP 104/74 07/22/20 06:00 Pulse Ox 99 07/22/20 08:00 Intake & Output 07/21/20 07/22/20 07/22/20 18:59 06:59 18:59 Intake Total 1893.82 40 40 Output Total 350 25 75 Balance 1543.82 15 -35 Weight 55 kg 55 kg Intake: IV 1810 40 40 0.9% Na 40 Piperacillin-Tazobactam 3 100 .375 gm In Sodium Chloride 0.9% 100 ml @ 25 mls/hr IVPB Q8HR [facility] Rx# :[id number] Potassium Acetate 20 meq 30 Calcium Gluconate 1 gm Mvi, Adult No.4 with Vit K 10 ml Trace (Conc-1Ml/ Dose) 1 ml In Amino Acid 5%-D15w 1,000 ml @ 30 mls /hr IV .Q24H [facility] Rx#: [id number] Potassium Chloride 10 meq 200 In Water For Injection 1 100ml.bag @ 100 mls/hr IVPB Q1H [facility] Rx#: [id number] Sodium Chloride 0.9% 1, 440 40 40 000 ml @ 40 mls/hr IV . Q24H [facility] Rx#:[id number] Sodium Chloride 0.9% 1, 1000 000 ml @ 999 mls/hr IV . Q1H1M [facility] Rx#:[id number] Intake, IV Titration 83.82 Amount propofoL 1,000 mg In 83.82 Empty Bag 1 bag @ Titrate IV .Q0M [facility] Rx#: [id number] Output: Urine 350 25 75 Other: Voiding Method Indwelling Catheter Indwelling Catheter Indwelling Catheter ABP, PAP, CO, CI - Last Documented Arterial Blood Pressure 131/56 - Exam GENERAL EXAM: Intubated, sedated frail-looking 60-year-old gentleman, comfortable in no apparent distress. HEAD: Normocephalic. EYES: Sluggish reaction of pupils, equal size. NOSE: Clear with pink turbinates. THROAT: Oral endotracheal and gastric tube secured in place. No erythema or exudates. NECK: No masses, no JVD. CHEST: No chest wall deformity. LUNGS: Equal air entry with bilateral scattered rhonchi more so on the right. CVS: S1 and S2 normal with no audible murmur, regular rhythm. ABDOMEN: No hepatosplenomegaly, normal bowel sounds, no guarding or rigidity. SPINE: No scoliosis or deformity SKIN: No rashes CENTRAL NERVOUS SYSTEM: No focal deficits, tone is normal in all 4 extremities. EXTREMITIES: Contractures. There is no peripheral edema. No clubbing, no cyanosis. Peripheral pulses are intact. - Labs CBC & Chem 7: 07/22/20 04:40 07/22/20 04:40 Labs: Abnormal Lab Results - Last 24 Hours (Table) 07/21/20 07/21/20 07/22/20 Range/Units 11:45 18:09 01:18 WBC (3.8-10.6) k/uL RBC (4.30-5.90) m/uL Hgb (13.0-17.5) gm/dL Hct (39.0-53.0) % Plt Count (150-450) k/uL ABG pH (7.35-7.45) ABG pCO2 (35-45) mmHg ABG pO2 (83-108) mmHg ABG Total CO2 (19-24) mmol/L ABG O2 Saturation (94-97) % Chloride (98-107) mmol/L BUN (9-20) mg/dL Creatinine (0.66-1.25) mg/dL Glucose (74-99) mg/dL POC Glucose (mg/dL) 135 H 122 H 128 H (75-99) mg/dL 07/22/20 07/22/20 07/22/20 Range/Units 04:37 04:40 04:40 WBC 12.4 H (3.8-10.6) k/uL RBC 3.20 L (4.30-5.90) m/uL Hgb 9.0 L D (13.0-17.5) gm/dL Hct 28.9 L (39.0-53.0) % Plt Count 523 H (150-450) k/uL ABG pH 7.48 H (7.35-7.45) ABG pCO2 33 L (35-45) mmHg ABG pO2 165 H (83-108) mmHg ABG Total CO2 26 H (19-24) mmol/L ABG O2 Saturation 100.0 H (94-97) % Chloride 111 H (98-107) mmol/L BUN 29 H (9-20) mg/dL Creatinine 1.28 H (0.66-1.25) mg/dL Glucose 152 H (74-99) mg/dL POC Glucose (mg/dL) (75-99) mg/dL 07/22/20 Range/Units 05:56 WBC (3.8-10.6) k/uL RBC (4.30-5.90) m/uL Hgb (13.0-17.5) gm/dL Hct (39.0-53.0) % Plt Count (150-450) k/uL ABG pH (7.35-7.45) ABG pCO2 (35-45) mmHg ABG pO2 (83-108) mmHg ABG Total CO2 (19-24) mmol/L ABG O2 Saturation (94-97) % Chloride (98-107) mmol/L BUN (9-20) mg/dL Creatinine (0.66-1.25) mg/dL Glucose (74-99) mg/dL POC Glucose (mg/dL) 167 H (75-99) mg/dL Microbiology - Last 24 Hours (Table) 07/21/20 01:54 Gram Stain - Preliminary Sputum Sputum Culture - Preliminary 07/16/20 11:00 Blood Culture - Preliminary Blood No Growth after 120 hours Assessment and Plan Assessment: 1 Acute hypoxic respiratory failure secondary to aspiration pneumonia and fluid volume overload requiring intubation mechanical ventilatory support on 07/21/2020 2 Metabolic encephalopathy in a patient with a known history of severe cognitive impairment 3 History of multiple sclerosis 4 Moderate to severe protein calorie malnutrition secondary to above him a status post PEG tube placement 5 History of seizures 6 Multiple admissions for aspiration pneumonia and urinary tract infections 7 History of DVT 8 History of GERD 9 History of hypertension 10 Osteoarthritis 11 History of neurogenic bladder 12 Poor overall functional performance based on the above-mentioned multiple comorbidities. Plan: The patient was seen and evaluated by Dr. Hawkins Chest x-ray, ABGs and labs reviewed Titrate down the FiO2 to 25% Continue nutritional support Overall prognosis remains quite poor and guarded Would recommend tracheostomy tube placement or perhaps transfer back to [facility] the patient was recently hospitalized The patient's sister is his POA and will be contacted regarding his plan of care We will continue to follow and make further recommendations based on his clinical status Critical care time 38 minutes I, the cosigning physician, performed a history & physical examination of the p atient. Lungs sounds with bilateral scattered rhonchi more so on the right. Maintaining good O2 saturations in the 90s on 40% FiO2 via the mechanical ventilator. I discussed the assessment and plan of care with my nurse practitioner, Angela Hendrix. I attest to the above note as dictated by her. Time with Patient: Greater than 30
[2020-07-22] MEDS: LACOSAMIDE 150 MG TABLET PEG/G-TUBE SCH ×2 (11:29→20:44)
[2020-07-22] MEDS ORDERED: [UNRECOGNIZED DRUG - REMARK] IV SCH ×5 (12:00)
[2020-07-22 12:01] LABS: Glucose,Whole Blood 155 mg/dL (75-99)
[2020-07-22] MEDS: METOCLOPRAMIDE 5 MG/ML 2 ML VIAL IVP SCH ×2 (12:39→18:01)
[2020-07-22] MEDS: SODIUM CHLORIDE 0.9% 1,000 ML IV SCH (12:40)
[2020-07-22] MEDS: [UNRECOGNIZED DRUG - REMARK] IV SCH ×5 (15:02)
--- NOTE | 2020-07-22 15:32 | EEG ---
ELECTROENCEPHALOGRAM REPORT DATE OF SERVICE: 07/22/2020 PREAMBLE: This is a 60-year-old male with history of seizure disorder. Patient is currently on a ventilator in ICU on propofol 10 mcg. EEG FINDINGS: This is a 21-channel portable EEG recording in a patient utilizing 10-20 international system with referential and bipolar montages. Background consists of well- developed but poorly regulated, mixed frequencies of low-voltage fast frequency beta with some theta activity. There is near-continuous focal slowing with periodic lateralized epileptiform discharges over the right hemispheric region. A photic driving response was not seen. Different stages of sleep were not seen. No electrographic seizure was recorded. IMPRESSION: This is an abnormal EEG due to: 1. Continuous focal slowing with periodic lateralized epileptiform discharges involving the right hemispheric region. This is suggestive of focal cortical neuronal dysfunction with underlying cortical irritability and tendency for seizures. In appropriate clinical setting, this may suggest nonconvulsive, partial status epilepticus. 2. Background slowing, consistent with encephalopathy. 3. Slightly excessive low-voltage fast frequency beta suggestive of medication effect. Follow-up EEG recommended. MMODL / IJN: [id number] / JOSE MIGUEL
--- NOTE | 2020-07-22 15:59 | P.CNNES ---
History of Present Illness Consult date: 07/22/20 Requesting physician: Chris Pugh Reason for Consult: Nonconvulsive seizures History of Present Illness: Patient is a 60-year-old male admitted to the hospital on 07/16/2020 for altered mental status and pulmonary edema. Patient has known history of advanced MS, PEG tube placement, severe cognitive impairment, bowel and bladder incontinence, neurogenic bladder, recently admitted in [facility] on mechanical ventilator. He was discharged to extended care facility for one day and then was brought back to our emergency room here on 07/16/2020. Patient was diagnosed with pulmonary edema, and was subsequently intubated and transferred to ICU. Patient is recent hospitalization to [facility] for seizures. Patient intubated, not able to provide any history. Patient currently is on Vimpat 150 mg twice a day, Keppra 200 mg twice a day and Tegretol 100 mg twice a day. Patient currently is diagnosed with acute hypoxic respiratory failure secondary to aspiration pneumonia and fluid volume overload. Patient is on mechanical ventilation. Moderate to severe protein calorie malnutrition secondary to above. History of DVT. As per electronic medical records, patient was seen by Dr. Jamison Hawkins on 04/14/2024 focal seizures with right facial and arm twitching. Patient had history of seizures since 2005. He already was on Tegretol 200 mg 3 times a day for trigeminal neuralgia. Keppra was added on that admission. Patient EEG on 04/14/2020 revealed moderate to severe encephalopathy. Excessive fast frequency likely due to medication effect. No epileptiform activity was seen. Patient had undergone 2-D echo on 07/19/2020 showed normal left-ventricular size, borderline concentric LVH, EF is 60-65%. Trace MR. Patient's Tegretol level on 06/05/2019 was 9.6. As of 06/04/2019 was 12.7. Patient has history of multiple sclerosis, dysarthria and anarthria, hypertension, alopecia, trigeminal neuralgia, gastrostomy status, epilepsy intractable with status epilepticus, on tractors dysphagia. Review of Systems ROS unobtainable: due to endotracheal tube, due to mental status Past Medical History Past Medical History: Deep Vein Thrombosis (DVT), GERD/Reflux, Hypertension, Musculoskeletal Disorder, Neurologic Disorder, Pneumonia, Skin Disorder Additional Past Medical History / Comment(s): Pt recently hospitalized at [facility] for extensive stay with seizure/pneumonia/UTI with sepsis/respirtory failure/vented-Pt diagnosed with multiple sclerosis at the age of 20 yrs, cognitive impairment, sister states when he is feeling well he could speak a few words/nod head appropriately/give thumbs up/roll eyes but when ill is nonverbal, pt has dysphagia/NPO with peg tube, contractures, trigeminal neuralgia, dysarthria/anarthria/neurogenic bladder with IDC-UTIs/sepsis, multiple pneumonias, recent seizure-last one 07/03/20, incontinent of stool, pt has had decubitus ulcer coccyx-sister unsure of skin condition at this time, past anemia r/t heparin/epistaxiis which involved nasal packing/transfusions, DVT bilateral arms. History of Any Multi-Drug Resistant Organisms: ESBL, MRSA Date of last positivie culture/infection: 09/13/19-MRSA; 11/23/19 ESBL-E.coli MDRO Source:: Broch lavage-Mrsa; Urine -ESBL Past Surgical History: Tonsillectomy Additional Past Surgical History / Comment(s): Gastrostomy, peg tube, I&D coccyx decubitius, bilateral lasik eye surgery. Past Anesthesia/Blood Transfusion Reactions: No Reported Reaction Additional Past Anesthesia/Blood Transfusion Reaction / Comment(s): Pt has received blood in past without reaction. Smoking Status: Never smoker - Past Family History Father Family Medical History: Myocardial Infarction (RI) Additional Family Medical History / Comment(s): Father is at the age of 86 yrs while on heparin/bled, he had a mild RI Mother Family Medical History: Hypertension, Myocardial Infarction (RI) Additional Family Medical History / Comment(s): Mother of a RI at the age of 73 yrs. Medications and Allergies Home Medications Medication Instructions Recorded Confirmed Type Amantadine 50mg/5ml 100 mg PEG/G-TUBE Q12H 12/28/17 07/16/20 History Cholecalciferol [Vitamin D3 (25 1,000 unit PEG/G-TUBE DAILY 12/28/17 07/16/20 History Mcg = 1000 Iu)] Docusate Oral Soln [Colace Oral 200 mg PEG/G-TUBE Q12H PRN 12/28/17 07/16/20 History Soln] guaiFENesin [guaiFENesin Oral 200 mg PEG/G-TUBE Q6H PRN 12/28/17 07/16/20 History Solution] Acetaminophen Oral Susp [Tylenol] 320 mg PEG/G-TUBE Q6H PRN 01/26/19 07/16/20 History Omeprazole Magnesium [PriLOSEC 20 mg PEG/G-TUBE DAILY 01/26/19 07/16/20 History Oral Susp] carBAMazepine [carBAMazepine Oral 100 mg PEG/G-TUBE Q12H 04/15/19 07/16/20 History Susp] Cranberry Fruit Extract [Cranberry] 500 mg PEG/G-TUBE Q12H 06/03/19 07/16/20 History Metoprolol Tartrate [Lopressor] 75 mg PEG/G-TUBE BID@0900,2100 07/29/19 07/16/20 History Oxybutynin Chloride [Ditropan Oral 5 mg PEG/G-TUBE TID@0600,1400,2200 09/08/19 07/16/20 History Soln] polyethylene glycoL 3350 [Miralax] 17 gm PEG/G-TUBE HS PRN 09/08/19 07/16/20 History Ipratropium-Albuterol Nebulize 3 ml INHALATION RT-QID PRN 12/16/19 07/16/20 History [Duoneb 0.5 mg-3 mg/3 ml Soln] Albuterol Sulfate [Proair Hfa] 2 puff INHALATION RT-Q4H PRN 04/14/20 07/16/20 History Aspirin 81 mg PEG/G-TUBE DAILY chew 04/15/20 07/16/20 Rx Baclofen [Lioresal] 10 mg PEG/G-TUBE TID@0600,1400,2200 07/16/20 07/16/20 History Hydrocerin Cream 1 applic TOPICAL BID@0900,209907/16/20 07/16/20 History Lacosamide [Vimpat] 150 mg PEG/G-TUBE BID@0900,209907/16/20 07/16/20 History Piperacillin-Tazobactam [Zosyn] 3.375 gm IVPB TID@0600,1400,2200 07/16/20 07/16/20 History Pulmocare 1.5 1,105 ml PEG/G-TUBE DIRECTED 07/16/20 07/16/20 History Vancomycin 1,500 mg IV Q24HR 07/16/20 07/16/20 History levETIRAcetam [levETIRAcetam Oral 200 mg PEG/G-TUBE BID@0900,2100 07/16/20 07/16/20 History Soln] Allergies Allergy/AdvReac Type Severity Reaction Status Date / Time meropenem [From Merrem] Allergy Rash/Hives Verified 07/16/20 11:01 Physical Examination - Vital Signs Vital Signs: Vital Signs Temp Pulse Resp BP Pulse Ox 07/22/20 14:00 105 H 23 124/80 100 07/22/20 13:00 89 16 125/82 98 07/22/20 12:00 99.5 F 98 17 117/78 98 07/22/20 11:35 94 07/22/20 11:25 93 07/22/20 11:00 96 17 118/70 98 07/22/20 10:00 105 H 17 121/79 96 07/22/20 09:00 109 H 18 108/79 97 07/22/20 08:00 98 20 99 07/22/20 07:49 99 07/22/20 07:38 99 07/22/20 07:00 98 21 99 07/22/20 06:00 93 21 104/74 100 07/22/20 05:00 98 20 98/71 100 07/22/20 04:00 98 20 87/62 100 07/22/20 03:00 99 20 91/64 100 07/22/20 02:00 96 20 130/91 100 07/22/20 01:00 102 H 21 101/73 100 07/22/20 00:00 106 H 21 107/71 99 07/21/20 23:00 110 H 20 122/77 100 07/21/20 22:00 110 H 20 101/69 100 07/21/20 21:00 105 H 20 97/70 100 07/21/20 20:40 100 07/21/20 20:24 104 H 07/21/20 20:00 104 H 20 100/70 100 07/21/20 19:00 101 H 20 107/66 99 07/21/20 18:00 103 H 20 109/77 100 07/21/20 17:00 104 H 22 100 07/21/20 16:00 98.2 F 101 H 22 102/74 99 10/21/20 15:38 95 07/21/20 15:26 96 07/21/20 15:00 98 21 91/70 99 Intake and Output 07/21/20 07/22/20 07/22/20 22:59 06:59 14:59 Intake Total 283.82 240 Output Total 130 1095 Balance 153.82 -855 Intake: IV 200 240 Sodium Chloride 0.9% 1, 200 240 000 ml @ 40 mls/hr IV . Q24H [facility] Rx#:[id number] Intake, IV Titration 83.82 Amount propofoL 1,000 mg In 83.82 Empty Bag 1 bag @ Titrate IV .Q0M [facility] Rx#: [id number] Output: Urine 130 1095 Other: Voiding Method Indwelling Catheter Indwelling Catheter Indwelling Catheter Weight 55 kg ABP, PAP, CO, CI - Last 8 Hours Arterial Blood Pressure 141/70 Arterial Blood Pressure 148/65 Arterial Blood Pressure 140/61 Arterial Blood Pressure 139/63 Arterial Blood Pressure 153/75 Arterial Blood Pressure 151/68 Arterial Blood Pressure 131/56 Arterial Blood Pressure 120/53 Patient at present is intubated, sedated on 10 g of fall. Patient does not respond to calling his name, or 2 painful stimuli. Patient has rhythmic eye twitching, with symmetric downbeat nystagmus in primary gaze. It appears ictal pattern. Patient has increased tone in the arms and legs. Patient has nathan ateral Babinski. No motor activity noted in the extremities. Results - Laboratory Findings CBC and BMP: 07/22/20 04:40 07/22/20 04:40 Abnormal Lab Findings: Abnormal Labs 07/16/20 07/16/20 07/16/20 10:35 10:35 10:35 WBC RBC 3.74 L Hgb 10.4 L D Hct 33.2 L MCHC RDW 15.8 H Plt Count 775 H D Neutrophils # Lymphocytes # ABG pH ABG pCO2 ABG pO2 ABG HCO3 ABG Total CO2 ABG O2 Saturation Sodium Chloride 108 H Carbon Dioxide BUN Creatinine Glucose 103 H POC Glucose (mg/dL) Plasma Lactic Acid Taurus Calcium 8.2 L Phosphorus Magnesium C-Reactive Protein 36.5 H Albumin 2.7 L Triglycerides Urine Protein Urine Blood Urine RBC Urine Bacteria Urine Mucus 07/16/20 07/16/20 07/17/20 10:36 11:30 07:28 WBC RBC 3.87 L Hgb 10.7 L Hct 34.9 L MCHC 30.8 L RDW 15.6 H Plt Count 758 H Neutrophils # Lymphocytes # ABG pH ABG pCO2 ABG pO2 ABG HCO3 ABG Total CO2 ABG O2 Saturation Sodium Chloride Carbon Dioxide BUN Creatinine Glucose POC Glucose (mg/dL) Plasma Lactic Acid Taurus 0.6 L Calcium Phosphorus Magnesium C-Reactive Protein Albumin Triglycerides Urine Protein Trace H Urine Blood Trace H Urine RBC 18 H Urine Bacteria Rare H Urine Mucus Rare H 07/17/20 07/17/20 07/17/20 07:28 11:55 17:11 WBC RBC Hgb Hct MCHC RDW Plt Count Neutrophils # Lymphocytes # ABG pH ABG pCO2 ABG pO2 ABG HCO3 ABG Total CO2 ABG O2 Saturation Sodium Chloride 109 H Carbon Dioxide 20 L BUN Creatinine Glucose 101 H POC Glucose (mg/dL) 104 H 110 H Plasma Lactic Acid Taurus Calcium Phosphorus Magnesium C-Reactive Protein Albumin Triglycerides Urine Protein Urine Blood Urine RBC Urine Bacteria Urine Mucus 07/17/20 07/18/20 07/18/20 20:24 06:32 06:45 WBC RBC 4.00 L Hgb 11.2 L Hct 35.7 L MCHC RDW Plt Count 804 H Neutrophils # Lymphocytes # ABG pH ABG pCO2 ABG pO2 ABG HCO3 ABG Total CO2 ABG O2 Saturation Sodium Chloride Carbon Dioxide BUN Creatinine Glucose POC Glucose (mg/dL) 101 H 112 H Plasma Lactic Acid Taurus Calcium Phosphorus Magnesium C-Reactive Protein Albumin Triglycerides Urine Protein Urine Blood Urine RBC Urine Bacteria Urine Mucus 07/18/20 07/18/20 07/18/20 06:45 12:08 17:03 WBC RBC Hgb Hct MCHC RDW Plt Count Neutrophils # Lymphocytes # ABG pH ABG pCO2 ABG pO2 ABG HCO3 ABG Total CO2 ABG O2 Saturation Sodium Chloride 108 H Carbon Dioxide BUN Creatinine Glucose 127 H POC Glucose (mg/dL) 127 H 128 H Plasma Lactic Acid Taurus Calcium Phosphorus Magnesium C-Reactive Protein Albumin Triglycerides Urine Protein Urine Blood Urine RBC Urine Bacteria Urine Mucus 07/18/20 07/19/20 07/19/20 20:33 06:11 07:27 WBC RBC 4.07 L Hgb 11.2 L Hct 36.4 L MCHC 30.8 L RDW Plt Count 793 H Neutrophils # Lymphocytes # ABG pH ABG pCO2 ABG pO2 ABG HCO3 ABG Total CO2 ABG O2 Saturation Sodium Chloride Carbon Dioxide BUN Creatinine Glucose POC Glucose (mg/dL) 133 H 150 H Plasma Lactic Acid Taurus Calcium Phosphorus Magnesium C-Reactive Protein Albumin Triglycerides Urine Protein Urine Blood Urine RBC Urine Bacteria Urine Mucus 07/19/20 07/19/20 07/19/20 07:27 11:53 16:48 WBC RBC Hgb Hct MCHC RDW Plt Count Neutrophils # Lymphocytes # ABG pH ABG pCO2 ABG pO2 ABG HCO3 ABG Total CO2 ABG O2 Saturation Sodium Chloride 109 H Carbon Dioxide BUN Creatinine Glucose 139 H POC Glucose (mg/dL) 139 H 145 H Plasma Lactic Acid Taurus Calcium Phosphorus Magnesium C-Reactive Protein Albumin Triglycerides Urine Protein Urine Blood Urine RBC Urine Bacteria Urine Mucus 07/19/20 07/20/20 07/20/20 20:50 06:21 11:59 WBC RBC Hgb Hct MCHC RDW Plt Count Neutrophils # Lymphocytes # ABG pH ABG pCO2 ABG pO2 ABG HCO3 ABG Total CO2 ABG O2 Saturation Sodium Chloride Carbon Dioxide BUN Creatinine Glucose POC Glucose (mg/dL) 125 H 111 H 121 H Plasma Lactic Acid Taurus Calcium Phosphorus Magnesium C-Reactive Protein Albumin Triglycerides Urine Protein Urine Blood Urine RBC Urine Bacteria Urine Mucus 07/20/20 07/20/20 07/20/20 14:59 17:05 20:15 WBC RBC Hgb Hct MCHC RDW Plt Count Neutrophils # Lymphocytes # ABG pH ABG pCO2 ABG pO2 ABG HCO3 ABG Total CO2 ABG O2 Saturation Sodium 147 H Chloride 111 H Carbon Dioxide BUN Creatinine Glucose 122 H POC Glucose (mg/dL) 112 H 107 H Plasma Lactic Acid Taurus Calcium Phosphorus 5.2 H Magnesium 2.5 H C-Reactive Protein Albumin Triglycerides 187 H Urine Protein Urine Blood Urine RBC Urine Bacteria Urine Mucus 07/21/20 07/21/20 07/21/20 01:20 01:29 01:51 WBC RBC Hgb Hct MCHC RDW Plt Count Neutrophils # Lymphocytes # ABG pH 7.51 H ABG pCO2 32 L ABG pO2 34 L* ABG HCO3 26 H ABG Total CO2 27 H ABG O2 Saturation 68.6 L Sodium Chloride Carbon Dioxide BUN Creatinine Glucose POC Glucose (mg/dL) 132 H 136 H Plasma Lactic Acid Taurus Calcium Phosphorus Magnesium C-Reactive Protein Albumin Triglycerides Urine Protein Urine Blood Urine RBC Urine Bacteria Urine Mucus 1007/21/20 07/21/20 02:44 02:56 02:56 WBC 17.6 H RBC Hgb Hct MCHC 29.8 L RDW Plt Count 843 H Neutrophils # 15.6 H Lymphocytes # 0.8 L ABG pH 7.46 H ABG pCO2 ABG pO2 46 L* ABG HCO3 ABG Total CO2 26 H ABG O2 Saturation 81.8 L Sodium 146 H Chloride 111 H Carbon Dioxide BUN Creatinine Glucose 174 H POC Glucose (mg/dL) Plasma Lactic Acid Taurus Calcium Phosphorus Magnesium C-Reactive Protein Albumin Triglycerides Urine Protein Urine Blood Urine RBC Urine Bacteria Urine Mucus 07/21/20 07/21/20 07/21/20 09:10 11:45 18:09 WBC RBC Hgb Hct MCHC RDW Plt Count Neutrophils # Lymphocytes # ABG pH ABG pCO2 ABG pO2 >400 H ABG HCO3 ABG Total CO2 25 H ABG O2 Saturation 100.0 H Sodium Chloride Carbon Dioxide BUN Creatinine Glucose POC Glucose (mg/dL) 135 H 122 H Plasma Lactic Acid Taurus Calcium Phosphorus Magnesium C-Reactive Protein Albumin Triglycerides Urine Protein Urine Blood Urine RBC Urine Bacteria Urine Mucus 07/22/20 07/22/20 07/22/20 01:18 04:37 04:40 WBC RBC Hgb Hct MCHC RDW Plt Count Neutrophils # Lymphocytes # ABG pH 7.48 H ABG pCO2 33 L ABG pO2 165 H ABG HCO3 ABG Total CO2 26 H ABG O2 Saturation 100.0 H Sodium Chloride 111 H Carbon Dioxide BUN 29 H Creatinine 1.28 H Glucose 152 H POC Glucose (mg/dL) 128 H Plasma Lactic Acid Taurus Calcium Phosphorus Magnesium C-Reactive Protein Albumin Triglycerides Urine Protein Urine Blood Urine RBC Urine Bacteria Urine Mucus 07/22/20 07/22/20 07/22/20 04:40 05:56 12:00 WBC 12.4 H RBC 3.20 L Hgb 9.0 L D Hct 28.9 L MCHC RDW Plt Count 523 H Neutrophils # Lymphocytes # ABG pH ABG pCO2 ABG pO2 ABG HCO3 ABG Total CO2 ABG O2 Saturation Sodium Chloride Carbon Dioxide BUN Creatinine Glucose POC Glucose (mg/dL) 167 H 155 H Plasma Lactic Acid Taurus Calcium Phosphorus Magnesium C-Reactive Protein Albumin Triglycerides Urine Protein Urine Blood Urine RBC Urine Bacteria Urine Mucus Assessment and Plan Assessment: * Nonconvulsive, partial status epilepticus. * Multiple sclerosis, advanced stage, nonverbal state. * Aspiration pneumonia, ventilator-dependent respiratory failure * Neurogenic bladder * Protein calorie malnutrition Plan: * Patient had an EEG performed today, which revealed continuous focal slowing with periodic lateralized epileptiform discharges involving the right hemispheric region. This is suggestive of focal cortical neuronal dysfunction with underlying cortical irritability and tendency for seizures. An appropriate clinical setting, this may suggest nonconvulsive, partial status epilepticus. Also showed background slowing, consistent with encephalopathy. * We will increase Keppra to 1000 mg twice a day * Check stat Tegretol level, and Keppra level. * Increase Tegretol to 200 mg 2 times a day. I guess his dose of carbamazepine was recently changed to 100 mg twice a day at [facility]. Patient previously was on Tegretol 200 mg 3 times a day. * Repeat EEG in a.m.
[2020-07-22 16:43] LABS: Hemoglobin A1C 4.6 % (4.0-6.0)
[2020-07-22 17:43] LABS: Glucose,Whole Blood 129 mg/dL (75-99)
--- NOTE | 2020-07-22 19:47 | P.PN ---
Progress Note - Text Progress Note Date: 07/22/20 Interval history 60 years old male with multiple medical problems presents with altered mental st atus secondary to pneumonia, patient has multiple admissions secondary to UTI and aspiration pneumonia. Other medical problems including multiple sclerosis, cognitive impairment and patient is nonverbal, patient has dysphagia and status post PEG tube, DVT of the arm, urine or bowel incontinence. Presents with fever, confusion and altered mental status. Patient could not provide information was obtained from the staff, records. Patient intubated on July 21. On the ventilator. Started on propofol and TPN. 07/17/2020 Patient lying in bed comfortable, breathing quietly. Nonverbal at baseline. No fever today compared to low-grade fever yesterday. No leukocytosis. Sputum culture is requested. Patient is covered currently with Zosyn 07/18/2020 Patient is nonverbal at baseline, lying comfortable in bed Still tachycardic. No more fevers since yesterday. CBC and BMP are unremarkable Controlled Continue with Zosyn and tube feeding as tolerated 07/19/2020 Patient is nonverbal however he notices still feeling lethargic and weak. His fever subsided and he is saturating 94% on room air Repeat chest x-ray showing Right basilar atelectasis and/or consolidation. Correlate for pneumonia Patient remains currently on Zosyn. Blood culture showed no growth. Sputum culture could not be obtained Patient is followed closely by infectious disease team. We will discuss with ID team, the plan I discussed the case with his sister miss mcnair and all her questions were answered. Discussed with the staff 07/20/2020 Patient remains lethargic and nonverbal, patient had low-grade temperature last night 100.4, blood pressure this morning is 124/81, heart rate 116, temperature 98.2 and breathing at 20 breaths per minute. He does not look in respiratory distress Chest x-ray from today showing improving aeration in the right base, background of mixed interstitial density is similar. Correlate for possible pulmonary vascular congestion. As per radiologist. Patient is already on Lasix IV 40 mg twice daily. Yesterday we stopped his tube feeding for concern of recurrent aspiration, head of bed is elevated all the time. Because of his loss of weight and weakness, I start him on TPN via his PICC line. Yesterday the sister miss ms Chris talked to me and wanted him to be started on IV vancomycin. However when we discuss it with Dr. Agrawal from infectious disease he does not think he needs IV vancomycin. I agree with Dr. Farah as the risk of these medication is more than the benefit at this point. Besides his chest x-ray from today showing improvement aeration while on Zosyn. Blood culture still showed no growth. Sputum culture is ordered but cannot be collected. tube feeding still on hold After I rounded on the patient today, and talked to the staff and the dietitian. I was informed by the business case analyst Cynthia that the sister ms Chris wanted a different attending. I discussed the case with Dr. Pugh and he kindly accepted the patient Today-ICU. On the ventilator FiO2 25 PEEP of 5. Getting TPN. Propofol was shut off this morning. Patient has a PEG tube in or G-tube. I was called by nurse friend this morning and Dr. Hawkins was the patient to be transferred to [facility] for continuous EEG monitoring. Review of systems-patient intubated Active Medications Acetaminophen (Acetaminophen Tab 325 Mg Tab) 650 mg PO Q6HR PRN PRN Reason: Fever and/ or Pain Albuterol Sulfate (Albuterol Nebulized 2.5 Mg/3 Ml) 2.5 mg INHALATION RT-Q4H PRN PRN Reason: Shortness Of Breath Last Admin: 07/22/20 15:37 Dose: 2.5 mg Documented by: Aspirin (Aspirin 81 Mg) 81 mg PEG/G-TUBE DAILY [facility] Last Admin: 07/22/20 08:26 Dose: 81 mg Documented by: Baclofen (Baclofen 10 Mg Tab) 10 mg PEG/G-TUBE TID@0600,1400,2200 [facility] Last Admin: 07/22/20 15:03 Dose: 10 mg Documented by: Carbamazepine (Carbamazepine 200 Mg Tab) 200 mg PEG/G-TUBE Q12HR [facility] Chlorhexidine Gluconate (Chlorhexidine Gluconate 15 Ml Cup) 15 ml MUCOUS MEM BID [facility] Last Admin: 07/22/20 08:25 Dose: 15 ml Documented by: Famotidine (Famotidine 20 Mg/2 Ml Vial) 10 mg IV Q12HR [facility] Last Admin: 07/22/20 08:54 Dose: 10 mg Documented by: Furosemide (Furosemide 10 Mg/Ml 4 Ml Vial) 40 mg IV Q12H [facility] Last Admin: 07/22/20 08:25 Dose: 40 mg Documented by: Heparin Sodium (Porcine) (Heparin Sodium,Porcine 5,000 Unit/Ml 1 Ml Vial) 5,000 unit SQ Q12HR [facility] Last Admin: 07/22/20 08:25 Dose: 5,000 unit Documented by: Piperacillin Sod/Tazobactam (Sod 3.375 gm/ Sodium Chloride) 100 mls @ 25 mls/hr IVPB Q8HR [facility] Last Admin: 07/22/20 15:03 Dose: 25 mls/hr Documented by: Propofol 1,000 mg/ IV Solution 100 mls @ 0 mls/hr IV .Q0M [facility]; Protocol Last Admin: 07/22/20 19:31 Dose: 10 mcg/kg/min, 3.3 mls/hr Documented by: Sodium Chloride (Saline 0.9%) 1,000 mls @ 40 mls/hr IV .Q24H [facility] Last Admin: 07/22/20 12:40 Dose: 40 mls/hr Documented by: Potassium Acetate 20 meq/Calcium Gluconate 1 gm/Parenteral Vitamin Supplement 10 ml/ Chromium/Copper/Manganese/Seleni/Zn 1 ml/Amino Acids/Dextrose 1,031 mls @ 75 mls/hr IV .BY DURATION [facility] Last Admin: 07/22/20 15:02 Dose: 75 mls/hr Documented by: Potassium Acetate 20 meq/Calcium Gluconate 1 gm/ Amino Acids/Dextrose 1,020 mls @ 75 mls/hr IV .BY DURATION [facility] Levetiracetam 1,000 mg/ IV (Solution) 100 mls @ 400 mls/hr IVPB Q12HR [facility] Insulin Aspart (Insulin Aspart (Novolog) 100 Unit/Ml Vial) 0 unit SQ Q6H [facility]; Protocol Last Admin: 07/22/20 17:56 Dose: Not Given Documented by: Lacosamide (Lacosamide 150 Mg Tablet) 150 mg PEG/G-TUBE BID@0900,2100 [facility] Last Admin: 07/22/20 11:29 Dose: 150 mg Documented by: Metoclopramide HCl (Metoclopramide 5 Mg/Ml 2 Ml Vial) 10 mg IVP Q6HR [facility] Last Admin: 07/22/20 18:01 Dose: 10 mg Documented by: Metoprolol Tartrate (Metoprolol Tartrate 50 Mg Tab) 75 mg PEG/G-TUBE BID@0900,2100 [facility] Last Admin: 07/22/20 08:25 Dose: 75 mg Documented by: Miscellaneous Information (Potassium Replacement Protocol 1 Each Misc) 1 each MISCELLANE DAILY PRN; Protocol PRN Reason: Per Protocol Potassium Bicarbonate (Potassium Bicarbonate/Cit Ac 20 Meq Tablet.Eff) 20 meq NG-TUBE Q1HR [facility]; Protocol Stop: 07/22/20 21:01 INVESTIGATIONS, reviewed in the clinical context: White count 12.4 hemoglobin 9 potassium 3.7 bun 29 creatinine 1.28 Chest x-ray film personally reviewed by me-July 21-right lower lobe infiltrate Previous testin-D echocardiogram EF 60-65% Assessment: -Acute hypoxic respiratory failure secondary to aspiration pneumonia-requiring ventilator support-intubated July 21 -Right lower lobe aspiration pneumonia -Acute on chronic metabolic encephalopathy -Severe cognitive impairment -Chronic advanced multiple sclerosis -Severe protein calorie malnutrition -PEG tube feeding -Chronic DVT including both the arms -GERD -Primary osteoarthritis -Chronic neurogenic bladder-with indwelling catheter -Chronic medical debility -Chronic dysphagia-nothing by mouth -Depression not otherwise specified -Partial status epilepticus. Plan: Spoke to Dr. Hawkins. Informed him that we should do a neurological workup. Before the patient's transferred out. Did discuss the neurologist Dr. Cartagena. EEG was ordered. Focal cortical epileptiform activity noted.-Patient dose of Keppra and Tegretol adjusted. By neurology. Patient have repeat EGD morning. Discussed with Dr. Cartagena. Total time spent today was 40 minutes with over 25 minutes of discussion. Discussed with the nurse.
[2020-07-22] MEDS: POTASSIUM BICARBONATE/CIT AC 20 MEQ TABLET.EFF NG-TUBE SCH ×2 (20:45→23:50)
[2020-07-22] MEDS: levETIRAcetam IV 1,000 MG in SALINE 1 100ML.BAG IVPB SCH (20:46)
[2020-07-22 23:56] LABS: Glucose,Whole Blood 141 mg/dL (75-99)
[2020-07-23 05:03] LABS: ABG Base Excess 1.2 mmol/L; ABG HCO3 25 mmol/L (21-25); ABG Oxygen Saturation 98.7 % (94-97); ABG PCO2 34 mmHg (35-45); ABG PH 7.48 (7.35-7.45); ABG PO2 99 mmHg (83-108); ABG TCO2 26 mmol/L (19-24); Allen Test Performed? Yes
[2020-07-23 05:32] LABS: HGB 8.8 gm/dL (13.0-17.5); Hypochromasia Slight; MCH 28.8 pg (25.0-35.0); MCHC 32.4 g/dL (31.0-37.0); MCV 88.7 fL (80.0-100.0); Mean Platelet Volume 8.3; Platelet Count 443 k/uL (150-450); RBC 3.05 m/uL (4.30-5.90); RDW 15.3 % (11.5-15.5)
[2020-07-23 05:35] LABS: Calcium 8.3 mg/dL (8.4-10.2); Magnesium 1.8 mg/dL (1.6-2.3); Phosphorus 3.1 mg/dL (2.5-4.5); Potassium 3.7 mmol/L (3.5-5.1)
[2020-07-23] MEDS ORDERED: Magnesium Replacement Protocol 1 EACH MISC MISCELLANE PRN (05:50)
[2020-07-23] MEDS ORDERED: POTASSIUM BICARBONATE/CIT AC 20 MEQ TABLET.EFF NG-TUBE SCH (06:00)
[2020-07-23 06:03] LABS: Glucose,Whole Blood 115 mg/dL (75-99)
[2020-07-23] MEDS: [UNRECOGNIZED DRUG - REMARK] IV SCH ×10 (06:16→18:37)
[2020-07-23] MEDS: BACLOFEN 10 MG TAB PEG/G-TUBE SCH ×3 (06:16→21:54)
[2020-07-23] MEDS: METOCLOPRAMIDE 5 MG/ML 2 ML VIAL IVP SCH ×4 (06:17→17:16)
[2020-07-23] MEDS: MAGNESIUM SULFATE-D5W PMX 1 GM in DEXTROSE/WATER 1 100ML.BAG IVPB SCH ×2 (06:17→07:58)
[2020-07-23] MEDS: INSULIN ASPART (NovoLOG) 100 UNIT/ML VIAL SQ SCH ×4 (06:19→17:58)
[2020-07-23 07:36] LABS: ABG PO2 34 mmHg (83-108)
[2020-07-23] MEDS: ALBUTEROL NEBULIZED 2.5 MG/3 ML INHALATION PRN ×4 (07:49→20:29)
--- NOTE | 2020-07-23 07:51 | XR ---
EXAMINATION TYPE: XR chest 1V portable DATE OF EXAM: 07/23/2020 Comparison: 07/22/2020 Clinical History: 60-year-old male Tube placement Findings: ET tube tip at the level of the medial clavicular heads. NG tube courses below the diaphragm. Left CV C tip in the upper right atrium. Mild interstitial prominence. Heart normal size. Redemonstrated ovoi d opacity at the right mid to lower lung measuring 7.5 x 3.6 cm. This is smaller compared to 8.1 x 4. 3 cm, previously. Impression: Prominent focal ovoid opacity at the right mid to lower lung is slightly smaller at 7.5 x 3.6 cm vers us 8.1 x 4.3 cm, previously.
[2020-07-23] MEDS: PIPERACILLIN-TAZOBACTAM 3.375 GM in SODIUM CHLORIDE 0.9% 100 ML IVPB SCH ×2 (07:58→17:16)
[2020-07-23] MEDS: ASPIRIN 81 MG PEG/G-TUBE SCH (07:59)
[2020-07-23] MEDS: METOPROLOL TARTRATE 50 MG TAB PEG/G-TUBE SCH ×2 (07:59→21:17)
[2020-07-23] MEDS: HEPARIN SODIUM,PORCINE 5,000 UNIT/ML 1 ML VIAL SQ SCH ×2 (07:59→21:16)
[2020-07-23] MEDS: CHLORHEXIDINE GLUCONATE 15 ML CUP MUCOUS MEM SCH ×2 (07:59→21:15)
[2020-07-23] MEDS: levETIRAcetam IV 1,000 MG in SALINE 1 100ML.BAG IVPB SCH ×2 (07:59→21:16)
[2020-07-23] MEDS: LACOSAMIDE 150 MG TABLET PEG/G-TUBE SCH ×2 (07:59→21:16)
[2020-07-23] MEDS: FAMOTIDINE 20 MG/2 ML VIAL IV SCH ×2 (08:00→21:15)
[2020-07-23] MEDS: carBAMazepine 200 MG TAB PEG/G-TUBE SCH ×2 (08:00→21:15)
[2020-07-23] MEDS: FUROSEMIDE 10 MG/ML 4 ML VIAL IV SCH ×2 (08:00→21:15)
--- NOTE | 2020-07-23 09:29 | P.PN ---
Subjective Progress Note Date: 07/23/20 Principal diagnosis: Acute hypoxic respiratory failure secondary to suspected aspiration This is a 60-year-old gentleman with a known history of multiple sclerosis, PEG tube placement, recurrent urinary tract infections, sepsis, hypertension, severe cognitive impairment, bowel and urinary incontinence, neurogenic bladder, previous pneumonias. He had recently been in [facility] and on the mechanical vent. He was discharged to an extended care facility for 1 day and bandar keita was brought back to our emergency room here on 07/16/2020. He was admitted for acute pulmonary edema to the selective care unit. Earlier this morning and A team was called as he developed increasing shortness of breath, tachycardia, tachypnea he was subsequently intubated and transferred to the intensive care unit. We are seeing him today in consultation. He is on the mechanical ventilator at assist control rate of 20, tidal volume 450, FiO2 100% and a PEEP of 10. Earlier blood gases revealed a pO2 of 46, pCO2 of 35 minutes pH is 7.45. He is on the Rachelle at 30 mcg/kg/m. Receiving TPN for nutrition currently at 30 MLS per hour with a goal of 75. 0.9#and 40 ML's per hour. Chest x-ray reveals persistent right middle lobe focal airspace density. Blood culture and sputum cultures pending. White count 17.6. Hemoglobin 13.0. Sodium 146. Potassium 3.8. Creatinine 1.23. He is currently on Lasix 40 mg every 12 hours, heparin for DVT prophylaxis, Pepcid for GI prophylaxis. He is on Keppra and Vimpat for his history of seizures. Antibiotics in the form of Zosyn. The patient is seen today 07/22/2020 in follow-up in the intensive care unit. He remains intubated on the mechanical ventilator with assist control of 20, tidal volume 450, FiO2 40% and a PEEP of 5. Her blood gases reveal pO2 165, CO2 33, pH 7.48. He remains sedated on propofol at 30 mcg/kg/m. Receiving nutrition via TPN currently at 75 ML's per hour with lipids. 0.9 normal saline at 40 ML's per hour. Chest x-ray reveals persistent right basilar pneumonic consolidation. No new infiltrates. No significant change from previous. Blood culture reveals no growth. Sputum culture pending. White count 12.4. Hemoglobin 9.0. Sodium 142. Potassium 3.7. Creatinine 1.28. Continued on IV diuretics. Antibiotics in the form of Zosyn. The patient is seen today 07/23/2020 in follow-up in the intensive care unit. He remains on mechanical ventilator. Assist control of rate of 20, tidal volume 450, FiO2 25%, PEEP of 5. Morning blood gases reveal a pO2 of 99, pCO2 34, pH 7.48. He remains off sedation. Remains unresponsive. He is being nourished with TPN at 75 ML's per hour along with vital AF 1.2 with trickle feeds at 10 MLS per hour with a goal of 45. EEG reveals a nonconvulsive status. Neurology is on the case. Blood cultures reveal no growth. Sputum culture revealing a preliminary of pseudomonas species. White count 8.0. Hemoglobin 8.8. Sodium 139. Potassium 3.7. Creatinine 1.08. He remains on IV diuretics 40 mg every 12 hours, bronchodilators, antibiotics in the form of Zosyn. Chest x-ray continues to show prominent focal ovoid opacity in the right mid to lower lung. Suspect pseudotumor versus rounded atelectasis Objective - Vital Signs Vital signs: Vital Signs Temp 99 F 07/23/20 04:00 Pulse 93 07/23/20 08:04 Resp 21 07/23/20 05:00 BP 93/64 07/23/20 05:00 Pulse Ox 98 07/23/20 05:00 Intake & Output 07/22/20 07/23/20 07/23/20 18:59 06:59 18:59 Intake Total 600 825 10 Output Total 1500 895 Balance -900 -70 10 Weight 55 kg Intake: IV 460 545 Piperacillin-Tazobactam 3 100 125 .375 gm In Sodium Chloride 0.9% 100 ml @ 25 mls/hr IVPB Q8HR [facility] Rx# :[id number] Sodium Chloride 0.9% 1, 360 320 000 ml @ 40 mls/hr IV . Q24H [facility] Rx#:[id number] levETIRAcetam IV 1,000 mg 100 In Saline 1 100ml.bag @ 400 mls/hr IVPB Q12HR [facility] Rx#:[id number] Intake, IV Titration 100 Amount propofoL 1,000 mg In 100 Empty Bag 1 bag @ Titrate IV .Q0M [facility] Rx#: [id number] Tube Feeding 10 100 10 Other 30 180 Output: Urine 1500 895 Other: Voiding Method Indwelling Catheter Indwelling Catheter Indwelling Catheter ABP, PAP, CO, CI - Last Documented Arterial Blood Pressure 113/55 - Exam GENERAL EXAM: Intubated, unresponsive, frail-looking 60-year-old gentleman, in no apparent distress. HEAD: Normocephalic. EYES: Sluggish reaction of pupils, equal size. NOSE: Clear with pink turbinates. THROAT: Oral endotracheal and gastric tube secured in place. No erythema or exudates. NECK: No masses, no JVD. CHEST: No chest wall deformity. LUNGS: Equal air entry with bilateral scattered rhonchi more so on the right. CVS: S1 and S2 normal with no audible murmur, regular rhythm. ABDOMEN: PEG tube exit site clean and dry. No hepatosplenomegaly, normal bowel sounds, no guarding or rigidity. SPINE: No scoliosis or deformity SKIN: No rashes CENTRAL NERVOUS SYSTEM: No focal deficits, tone is normal in all 4 extremities. EXTREMITIES: Contractures. There is no peripheral edema. No clubbing, no c yanosis. Peripheral pulses are intact. - Labs CBC & Chem 7: 07/23/20 04:10 07/23/20 04:10 Labs: Abnormal Lab Results - Last 24 Hours (Table) 07/21/20 07/22/20 07/22/20 Range/Units 01:29 12:00 16:35 RBC (4.30-5.90) m/uL Hgb (13.0-17.5) gm/dL Hct (39.0-53.0) % ABG pH (7.35-7.45) ABG pCO2 (35-45) mmHg ABG pO2 34 L* (83-108) mmHg ABG Total CO2 (19-24) mmol/L ABG O2 Saturation (94-97) % Potassium 3.3 L (3.5-5.1) mmol/L Chloride (98-107) mmol/L BUN (9-20) mg/dL Glucose (74-99) mg/dL POC Glucose (mg/dL) 155 H (75-99) mg/dL Calcium (8.4-10.2) mg/dL 07/22/20 07/22/20 07/23/20 Range/Units 17:42 23:54 04:10 RBC (4.30-5.90) m/uL Hgb (13.0-17.5) gm/dL Hct (39.0-53.0) % ABG pH (7.35-7.45) ABG pCO2 (35-45) mmHg ABG pO2 (83-108) mmHg ABG Total CO2 (19-24) mmol/L ABG O2 Saturation (94-97) % Potassium (3.5-5.1) mmol/L Chloride 108 H (98-107) mmol/L BUN 33 H (9-20) mg/dL Glucose 136 H (74-99) mg/dL POC Glucose (mg/dL) 129 H 141 H (75-99) mg/dL Calcium 8.3 L (8.4-10.2) mg/dL 07/23/20 07/23/20 07/23/20 Range/Units 04:10 04:59 06:01 RBC 3.05 L (4.30-5.90) m/uL Hgb 8.8 L (13.0-17.5) gm/dL Hct 27.0 L (39.0-53.0) % ABG pH 7.48 H (7.35-7.45) ABG pCO2 34 L (35-45) mmHg ABG pO2 (83-108) mmHg ABG Total CO2 26 H (19-24) mmol/L ABG O2 Saturation 98.7 H (94-97) % Potassium (3.5-5.1) mmol/L Chloride (98-107) mmol/L BUN (9-20) mg/dL Glucose (74-99) mg/dL POC Glucose (mg/dL) 115 H (75-99) mg/dL Calcium (8.4-10.2) mg/dL Microbiology - Last 24 Hours (Table) 07/16/20 11:00 Blood Culture - Final Blood No Growth after 144 hours 07/21/20 01:54 Gram Stain - Preliminary Sputum Sputum Culture - Preliminary Pseudomonas spec Assessment and Plan Assessment: 1 Acute hypoxic respiratory failure secondary to aspiration pneumonia and fluid volume overload requiring intubation mechanical ventilatory support on 07/21/2020. Sputum culture with preliminary pseudomonas species. 2 Metabolic encephalopathy in a patient with a known history of severe cognitive impairment 3 History of multiple sclerosis 4 Moderate to severe protein calorie malnutrition secondary to above him a status post PEG tube placement 5 History of seizures, EEG from 07/22/2020 reveals continuous focal slowing with periodic lateralized epileptiform discharges involving the right hemispheric region. May suggest nonconvulsive, partial status epilepticus. Background slowing consistent with encephalopathy. 6 Multiple admissions for aspiration pneumonia and urinary tract infections 7 History of DVT 8 History of GERD 9 History of hypertension 10 Osteoarthritis 11 History of neurogenic bladder 12 Poor overall functional performance based on the above-mentioned multiple comorbidities. Plan: The patient was seen and evaluated by Dr. Hawkins Chest x-ray, ABGs and labs reviewed Continue current vent setting Continue antibiotics Continue nutritional support Overall prognosis remains quite poor and guarded Would recommend tracheostomy tube placement or perhaps transfer back to [facility] where the patient was recently hospitalized We will continue to follow and make further recommendations based on his clinical status Critical care time 36 minutes I, the cosigning physician, performed a history & physical examination of the patient. Lungs sounds with bilateral scattered rhonchi more so on the right. Maintaining good O2 saturations in the 90s on 25% FiO2 via the mechanical ventilator. I discussed the assessment and plan of care with my nurse practitioner, Angela Hendrix. I attest to the above note as dictated by her.
[2020-07-23 12:07] LABS: Glucose,Whole Blood 153 mg/dL (75-99)
--- NOTE | 2020-07-23 12:51 | EEG ---
ELECTROENCEPHALOGRAM REPORT DATE OF SERVICE: 07/23/2020 PREAMBLE: This is a 60-year-old male with history of seizure disorder, MS. Patient had abnormal EEG yesterday. This is a followup EEG. This is a 21 channel portable EEG recording in a patient utilizing 10-20 international system with referential and bipolar montages. The background consists of a well- developed, but poorly regulated, mixed frequencies of moderate to low voltage, mixed theta with some delta activity. Intermittent right temporal sharp waves were seen. Some stage 2 sleep was seen with presence of vertex waves and sleep spindles. No electrographic seizure was recorded during the study. IMPRESSION: This is an abnormal EEG due presence of: 1. Background slowing, suggestive of a toxic metabolic encephalopathy. 2. Epileptiform activity over the right frontal temporal region, suggestive of focal cortical neural dysfunction with underlying cortical irritability and tendency for seizures. When compared with the study from 07/22/2020, there is significant improvement in the focal epileptiform activity. Clinical correlation and followup EEG recommended as clinically indicated. CHARLOTTE / ARMANDON: [id number] /
[2020-07-23] MEDS: SODIUM CHLORIDE 0.9% 1,000 ML IV SCH (12:53)
--- NOTE | 2020-07-23 15:05 | P.PN ---
Subjective Progress Note Date: 07/23/20 Patient continues to be unresponsive, intubated. Severely encephalopathic. No obvious rhythmic eye movement, or facial twitching or movement of the extremities noted. Objective - Vital Signs Vital signs: Vital Signs Temp 98.9 F 07/23/20 12:00 Pulse 87 07/23/20 12:00 Resp 20 07/23/20 12:00 BP 124/88 07/23/20 12:00 Pulse Ox 99 07/23/20 12:00 Intake & Output 07/22/20 07/23/20 07/23/20 18:59 06:59 18:59 Intake Total 600 825 395 Output Total 1160 848 0520 Balance -900 -70 -805 Weight 55 kg 55 kg Intake: IV 460 545 255 Piperacillin-Tazobactam 3 100 125 75 .375 gm In Sodium Chloride 0.9% 100 ml @ 25 mls/hr IVPB Q8HR [facility] Rx# :[id number] Sodium Chloride 0.9% 1, 360 320 80 000 ml @ 40 mls/hr IV . Q24H [facility] Rx#:[id number] levETIRAcetam IV 1,000 mg 100 100 In Saline 1 100ml.bag @ 400 mls/hr IVPB Q12HR [facility] Rx#:[id number] Intake, IV Titration 100 Amount propofoL 1,000 mg In 100 Empty Bag 1 bag @ Titrate IV .Q0M [facility] Rx#: [id number] Tube Feeding 10 100 80 Other 30 180 60 Output: Urine 6518 219 4466 Other: Voiding Method Indwelling Catheter Indwelling Catheter Indwelling Catheter ABP, PAP, CO, CI - Last Documented Arterial Blood Pressure 138/70 - Exam No seizure type activity noticed at this time. Patient is off sedation since 7:15 AM. Patient's pupils are reactive. Oculocephalics minimally present. Patient does not respond to painful stimuli. - Labs CBC & Chem 7: 07/23/20 04:10 07/23/20 11:45 Labs: Abnormal Lab Results - Last 24 Hours (Table) 07/21/20 07/22/20 07/22/20 Range/Units 01:29 16:35 17:42 RBC (4.30-5.90) m/uL Hgb (13.0-17.5) gm/dL Hct (39.0-53.0) % ABG pH (7.35-7.45) ABG pCO2 (35-45) mmHg ABG pO2 34 L* (83-108) mmHg ABG Total CO2 (19-24) mmol/L ABG O2 Saturation (94-97) % Potassium 3.3 L (3.5-5.1) mmol/L Chloride (98-107) mmol/L BUN (9-20) mg/dL Glucose (74-99) mg/dL POC Glucose (mg/dL) 129 H (75-99) mg/dL Calcium (8.4-10.2) mg/dL 07/22/20 07/23/20 07/23/20 Range/Units 23:54 04:10 04:10 RBC 3.05 L (4.30-5.90) m/uL Hgb 8.8 L (13.0-17.5) gm/dL Hct 27.0 L (39.0-53.0) % ABG pH (7.35-7.45) ABG pCO2 (35-45) mmHg ABG pO2 (83-108) mmHg ABG Total CO2 (19-24) mmol/L ABG O2 Saturation (94-97) % Potassium (3.5-5.1) mmol/L Chloride 108 H (98-107) mmol/L BUN 33 H (9-20) mg/dL Glucose 136 H (74-99) mg/dL POC Glucose (mg/dL) 141 H (75-99) mg/dL Calcium 8.3 L (8.4-10.2) mg/dL 07/23/20 07/23/20 07/23/20 Range/Units 04:59 06:01 11:45 RBC (4.30-5.90) m/uL Hgb (13.0-17.5) gm/dL Hct (39.0-53.0) % ABG pH 7.48 H (7.35-7.45) ABG pCO2 34 L (35-45) mmHg ABG pO2 (83-108) mmHg ABG Total CO2 26 H (19-24) mmol/L ABG O2 Saturation 98.7 H (94-97) % Potassium 3.4 L (3.5-5.1) mmol/L Chloride (98-107) mmol/L BUN (9-20) mg/dL Glucose (74-99) mg/dL POC Glucose (mg/dL) 115 H (75-99) mg/dL Calcium (8.4-10.2) mg/dL 07/23/20 Range/Units 12:05 RBC (4.30-5.90) m/uL Hgb (13.0-17.5) gm/dL Hct (39.0-53.0) % ABG pH (7.35-7.45) ABG pCO2 (35-45) mmHg ABG pO2 (83-108) mmHg ABG Total CO2 (19-24) mmol/L ABG O2 Saturation (94-97) % Potassium (3.5-5.1) mmol/L Chloride (98-107) mmol/L BUN (9-20) mg/dL Glucose (74-99) mg/dL POC Glucose (mg/dL) 153 H (75-99) mg/dL Calcium (8.4-10.2) mg/dL Microbiology - Last 24 Hours (Table) 07/21/20 01:54 Gram Stain - Final Sputum Sputum Culture - Final Pseudomonas aeruginosa Corynebacterium striatum 07/16/20 11:00 Blood Culture - Final Blood No Growth after 144 hours Assessment and Plan Assessment: * Nonconvulsive, partial status epilepticus, now resolved based upon clinical examination and EEG. * Multiple sclerosis, advanced stage, nonverbal state. * Aspiration pneumonia, ventilator-dependent respiratory failure * Neurogenic bladder * Protein calorie malnutrition Plan: * Repeat EEG today revealed much improvement in the periodic lateralized epileptiform activity over the right hemispheric region. Patient still has interictal epileptiform activity noted in the right hemispheric region, but not continuous as was yesterday. Clinically patient is not showing any seizure activity. But it can change and may need more intense monitoring. As patient is completely unresponsive, off sedation since 7:15 AM, may consider transfer to tertiary care center for continuous EEG monitoring. * Continue Keppra to 1000 mg twice a day, Vimpat 150 mg twice a day and Tegretol 200 mg twice a day. * Patient's Tegretol level is 3.7 (4-12) and Keppra level is 7.5(3-60). Patient's dose of Tegretol and Keppra has been increased as of yesterday.
[2020-07-23 17:32] LABS: Glucose,Whole Blood 107 mg/dL (75-99)
[2020-07-23] MEDS: POTASSIUM BICARBONATE/CIT AC 20 MEQ TABLET.EFF NG-TUBE SCH ×2 (18:00→18:30)
[2020-07-23] MEDS: 1: MVI, ADULT NO.4 WITH VIT K 10 ML, TRACE (CONC-1ML/DOSE) 1 ML in AMINO ACID 5%-D15W+LY IV SCH ×3 (18:36)
--- NOTE | 2020-07-23 20:41 | P.PN ---
Progress Note - Text Progress Note Date: 07/23/20 Interval history 60 years old male with multiple medical problems presents with altered mental s tatus secondary to pneumonia, patient has multiple admissions secondary to UTI and aspiration pneumonia. Other medical problems including multiple sclerosis, cognitive impairment and patient is nonverbal, patient has dysphagia and status post PEG tube, DVT of the arm, urine or bowel incontinence. Presents with fever, confusion and altered mental status. Patient could not provide information was obtained from the staff, records. Patient intubated on July 21. On the ventilator. Started on propofol and TPN. EEG confirmed seizure activity. Dose of Tegretol and Keppra adjusted. 07/17/2020 Patient lying in bed comfortable, breathing quietly. Nonverbal at baseline. No fever today compared to low-grade fever yesterday. No leukocytosis. Sputum culture is requested. Patient is covered currently with Zosyn 07/18/2020 Patient is nonverbal at baseline, lying comfortable in bed Still tachycardic. No more fevers since yesterday. CBC and BMP are unremarkable Controlled Continue with Zosyn and tube feeding as tolerated 07/19/2020 Patient is nonverbal however he notices still feeling lethargic and weak. His fever subsided and he is saturating 94% on room air Repeat chest x-ray showing Right basilar atelectasis and/or consolidation. Correlate for pneumonia Patient remains currently on Zosyn. Blood culture showed no growth. Sputum culture could not be obtained Patient is followed closely by infectious disease team. We will discuss with ID team, the plan I discussed the case with his sister miss mcnair and all her questions were answered. Discussed with the staff 07/20/2020 Patient remains lethargic and nonverbal, patient had low-grade temperature last night 100.4, blood pressure this morning is 124/81, heart rate 116, temperature 98.2 and breathing at 20 breaths per minute. He does not look in respiratory distress Chest x-ray from today showing improving aeration in the right base, background of mixed interstitial density is similar. Correlate for possible pulmonary vascular congestion. As per radiologist. Patient is already on Lasix IV 40 mg twice daily. Yesterday we stopped his tube feeding for concern of recurrent aspiration, head of bed is elevated all the time. Because of his loss of weight and weakness, I start him on TPN via his PICC line. Yesterday the sister miss ms Chris talked to me and wanted him to be started on IV vancomycin. However when we discuss it with Dr. Agrawal from infectious disease he does not think he needs IV vancomycin. I agree with Dr. Farah as the risk of these medication is more than the benefit at this point. Besides his chest x-ray from today showing improvement aeration while on Zosyn. Blood culture still showed no growth. Sputum culture is ordered but cannot be collected. tube feeding still on hold After I rounded on the patient today, and talked to the staff and the dietitian. I was informed by the complex case manager Cynthia that the sister ms Chris wanted a different attending. I discussed the case with Dr. Pugh and he kindly accepted the patient Today-laying in bed. No twitching activity. On the ventilator. FiO2 25 PEEP of 5. Patient did get few hours of propofol last night. Had a repeat EEG this morning. Discussed with Dr. Cartagena from neurology. No seizure activities better. And there is no neurology coverage available in the hospital including the weekend patient be better served with continuous EEG monitoring at [facility] where previous care was provided to the patient. Informed Dr. Hawkins. About transfer. Did discuss with the sister about ID physician Sayed having reviewed the need for vancomycin earlier and did not feel the need for the same. Questions were answered. Review of systems-patient intubated Active Medications Acetaminophen (Acetaminophen Tab 325 Mg Tab) 650 mg PO Q6HR PRN PRN Reason: Fever and/ or Pain Albuterol Sulfate (Albuterol Nebulized 2.5 Mg/3 Ml) 2.5 mg INHALATION RT-Q4H PRN PRN Reason: Shortness Of Breath Last Admin: 07/23/20 20:29 Dose: 2.5 mg Documented by: Aspirin (Aspirin 81 Mg) 81 mg PEG/G-TUBE DAILY [facility] Last Admin: 07/23/20 07:59 Dose: 81 mg Documented by: Baclofen (Baclofen 10 Mg Tab) 10 mg PEG/G-TUBE TID@0600,1400,2200 [facility] Last Admin: 07/23/20 12:53 Dose: 10 mg Documented by: Carbamazepine (Carbamazepine 200 Mg Tab) 200 mg PEG/G-TUBE Q12HR [facility] Last Admin: 07/23/20 08:00 Dose: 200 mg Documented by: Chlorhexidine Gluconate (Chlorhexidine Gluconate 15 Ml Cup) 15 ml MUCOUS MEM BID [facility] Last Admin: 07/23/20 07:59 Dose: 15 ml Documented by: Famotidine (Famotidine 20 Mg/2 Ml Vial) 10 mg IV Q12HR [facility] Last Admin: 07/23/20 08:00 Dose: 10 mg Documented by: Furosemide (Furosemide 10 Mg/Ml 4 Ml Vial) 40 mg IV Q12H [facility] Last Admin: 07/23/20 08:00 Dose: 40 mg Documented by: Heparin Sodium (Porcine) (Heparin Sodium,Porcine 5,000 Unit/Ml 1 Ml Vial) 5,000 unit SQ Q12HR [facility] Last Admin: 07/23/20 07:59 Dose: 5,000 unit Documented by: Piperacillin Sod/Tazobactam (Sod 3.375 gm/ Sodium Chloride) 100 mls @ 25 mls/hr IVPB Q8HR [facility] Last Admin: 07/23/20 17:16 Dose: 25 mls/hr Documented by: Propofol 1,000 mg/ IV Solution 100 mls @ 0 mls/hr IV .Q0M [facility]; Protocol Last Titration: 07/23/20 07:30 Dose: 0 mcg/kg/min, 0 mls/hr Documented by: Sodium Chloride (Saline 0.9%) 1,000 mls @ 40 mls/hr IV .Q24H [facility] Last Admin: 07/23/20 12:53 Dose: 40 mls/hr Documented by: Levetiracetam 1,000 mg/ IV (Solution) 100 mls @ 400 mls/hr IVPB Q12HR [facility] Last Admin: 07/23/20 07:59 Dose: 400 mls/hr Documented by: Parenteral Vitamin Supplement 10 ml/ Chromium/Copper/Manganese/Seleni/Zn 1 ml/Amino Ac/Electrol/Dextrose/Calcium 1,011 mls @ 75 mls/hr IV .BY DURATION [facility] Last Admin: 07/23/20 18:36 Dose: 75 mls/hr Documented by: Amino Ac/Electrol/Dextrose/Calcium (Clinimix E 5%-D15% Solution) 1,000 mls @ 75 mls/hr IV .BY DURATION [facility] Insulin Aspart (Insulin Aspart (Novolog) 100 Unit/Ml Vial) 0 unit SQ Q6H [facility]; Protocol Last Admin: 07/23/20 17:58 Dose: Not Given Documented by: Lacosamide (Lacosamide 150 Mg Tablet) 150 mg PEG/G-TUBE BID@0900,2100 [facility] Last Admin: 07/23/20 07:59 Dose: 150 mg Documented by: Metoclopramide HCl (Metoclopramide 5 Mg/Ml 2 Ml Vial) 10 mg IVP Q6HR [facility] Last Admin: 07/23/20 17:16 Dose: 10 mg Documented by: Metoprolol Tartrate (Metoprolol Tartrate 50 Mg Tab) 75 mg PEG/G-TUBE BID@0900,2100 [facility] Last Admin: 07/23/20 07:59 Dose: 75 mg Documented by: Miscellaneous Information (Potassium Replacement Protocol 1 Each Misc) 1 each MISCELLANE DAILY PRN; Protocol PRN Reason: Per Protocol Miscellaneous Information (Magnesium Replacement Protocol 1 Each Misc) 1 each MISCELLANE DAILY PRN; Protocol PRN Reason: Per Protocol INVESTIGATIONS, reviewed in the clinical context: White count 8 hemoglobin 8.8 platelets 443 potassium 3.7 creatinine 1.08 Chest x-ray film personally reviewed by me-July 21-right lower lobe infiltrate Previous testin-D echocardiogram EF 60-65% Assessment: -Acute hypoxic respiratory failure secondary to aspiration pneumonia-requiring ventilator support-intubated July 21 -Right lower lobe aspiration pneumonia -Acute on chronic metabolic encephalopathy -Severe cognitive impairment -Chronic advanced multiple sclerosis -Severe protein calorie malnutrition -PEG tube feeding -Chronic DVT including both the arms -GERD -Primary osteoarthritis -Chronic neurogenic bladder-with indwelling catheter -Chronic medical debility -Chronic dysphagia-nothing by mouth -Depression not otherwise specified -Partial status epilepticus.-Medication adjusted Plan: Discussed with Dr. Cartagena. Patient to be transferred to [facility] for continuous EEG monitoring that is not available here. We have no weekend coverage for neurology also. Inform Dr. Naranjo. Also discussed with patient's sister. Dr. Bryson guard rail installer had [facility]. Patient been excepted. Currently no beds available. Total time spent today about 45 minutes with over 25 minutes of discussion.
[2020-07-24 00:06] LABS: Glucose,Whole Blood 138 mg/dL (75-99)
[2020-07-24] MEDS: INSULIN ASPART (NovoLOG) 100 UNIT/ML VIAL SQ SCH ×4 (00:10→17:40)
[2020-07-24] MEDS: PIPERACILLIN-TAZOBACTAM 3.375 GM in SODIUM CHLORIDE 0.9% 100 ML IVPB SCH ×3 (00:12→16:02)
[2020-07-24] MEDS: METOCLOPRAMIDE 5 MG/ML 2 ML VIAL IVP SCH ×4 (00:12→17:40)
[2020-07-24 04:08] LABS: ABG Base Excess 2.6 mmol/L; ABG HCO3 26 mmol/L (21-25); ABG PCO2 35 mmHg (35-45); ABG PH 7.48 (7.35-7.45); ABG PO2 104 mmHg (83-108); ABG TCO2 27 mmol/L (19-24)
[2020-07-24 04:19] LABS: African American GFR (CKD) >90 (>60 ml/min/1.73 sqM); Anion Gap 8 mmol/L; Blood Urea Nitrogen 31 mg/dL (9-20); Calcium 8.2 mg/dL (8.4-10.2); Carbon Dioxide 25 mmol/L (22-30); Chloride 105 mmol/L (98-107); Glucose 138 mg/dL (74-99); Magnesium 2.2 mg/dL (1.6-2.3); Non-African American GFR(CKD) >90 (>60 ml/min/1.73 sqM); Phosphorus 3.9 mg/dL (2.5-4.5); Potassium 3.9 mmol/L (3.5-5.1); Sodium 138 mmol/L (137-145)
[2020-07-24 04:23] LABS: Basophils % (A) 0 %; Eosinophils # (A) 0.4 k/uL (0-0.7); Eosinophils % (A) 7 %; HCT 29.1 % (39.0-53.0); HGB 8.9 gm/dL (13.0-17.5); Hypochromasia Moderate; Lymphocytes # (A) 0.9 k/uL (1.0-4.8); Lymphocytes % (A) 14 %; MCH 26.9 pg (25.0-35.0); MCHC 30.4 g/dL (31.0-37.0); MCV 88.5 fL (80.0-100.0); Mean Platelet Volume 9.2; Monocytes # (A) 0.5 k/uL (0-1.0); Monocytes % (A) 8 %; Neutrophils # (A) 4.2 k/uL (1.3-7.7); Neutrophils % (A) 69 %; Platelet Count 406 k/uL (150-450); RBC 3.29 m/uL (4.30-5.90); RDW 15.1 % (11.5-15.5); WBC 6.1 k/uL (3.8-10.6)
[2020-07-24] MEDS ORDERED: Potassium Replacement Protocol 1 EACH MISC MISCELLANE PRN (04:56)
[2020-07-24] MEDS ORDERED: POTASSIUM BICARBONATE/CIT AC 20 MEQ TABLET.EFF NG-TUBE SCH ×2 (05:00→19:00)
[2020-07-24] MEDS: BACLOFEN 10 MG TAB PEG/G-TUBE SCH ×3 (06:07→20:02)
[2020-07-24 06:12] LABS: Glucose,Whole Blood 131 mg/dL (75-99)
[2020-07-24] MEDS: ALBUTEROL NEBULIZED 2.5 MG/3 ML INHALATION PRN (07:36)
[2020-07-24] MEDS: METOPROLOL TARTRATE 50 MG TAB PEG/G-TUBE SCH ×2 (08:57→20:01)
[2020-07-24] MEDS: FUROSEMIDE 10 MG/ML 4 ML VIAL IV SCH ×2 (08:57→20:01)
[2020-07-24] MEDS: CHLORHEXIDINE GLUCONATE 15 ML CUP MUCOUS MEM SCH ×2 (08:57→20:01)
[2020-07-24] MEDS: levETIRAcetam IV 1,000 MG in SALINE 1 100ML.BAG IVPB SCH ×2 (08:57→20:00)
[2020-07-24] MEDS: HEPARIN SODIUM,PORCINE 5,000 UNIT/ML 1 ML VIAL SQ SCH ×2 (08:57→20:01)
[2020-07-24] MEDS: ASPIRIN 81 MG PEG/G-TUBE SCH (08:57)
[2020-07-24] MEDS: carBAMazepine 200 MG TAB PEG/G-TUBE SCH ×2 (09:02→20:30)
[2020-07-24] MEDS: FAMOTIDINE 20 MG/2 ML VIAL IV SCH ×2 (09:02→20:02)
[2020-07-24] MEDS: LACOSAMIDE 150 MG TABLET PEG/G-TUBE SCH ×2 (09:05→20:05)
[2020-07-24] MEDS: 1: MVI, ADULT NO.4 WITH VIT K 10 ML, TRACE (CONC-1ML/DOSE) 1 ML in AMINO ACID 5%-D15W+LY IV SCH ×9 (09:10→19:25)
--- NOTE | 2020-07-24 10:14 | XR ---
EXAMINATION TYPE: XR chest 1V portable DATE OF EXAM: 07/24/2020 CLINICAL HISTORY: Tube placement. TECHNIQUE: Portable semiupright view of the chest. COMPARISON: 07/23/2020 chest radiograph FINDINGS: Endotracheal tube distal tip at the level of the clavicular head. Redemonstrated right PIC C, left internal jugular central venous catheter, and enteric tube. The cardiomediastinal silhouette is within normal limits for size. Pulmonary vasculature is normal. Redemonstrated ovoid opacity in th e right mid lung in measures 6.4 x 3.6 cm, decreased from 07/23/2020 and 07/22/2020 comparison. No pn eumothorax seen. Old left-sided rib deformity. IMPRESSION: Right basilar focal airspace opacity again demonstrates interval decrease in size versus 07/23/2020 and 07/22/2020 comparisons.
[2020-07-24] MEDS: SODIUM CHLORIDE 0.9% 1,000 ML IV SCH (11:12)
[2020-07-24] MEDS: IPRATROPIUM-ALBUTEROL 3 ML NEB INHALATION SCH ×3 (12:12→19:58)
[2020-07-24 12:41] LABS: Glucose,Whole Blood 122 mg/dL (75-99)
--- NOTE | 2020-07-24 12:48 | PN ---
PROGRESS NOTE INTERVAL HISTORY: This is a 60-year-old gentleman with a history of multiple sclerosis, who was admitted to the hospital on July 16. The patient developed acute hypoxemic respiratory failure and required intubation and mechanical ventilation on July 21, 2020. The patient currently is being evaluated for possible transfer to [facility]. Apparently they have accepted him but there are no beds available. Currently, the patient remains on the volume assist-control mode rate of 20, tidal volume 450, FiO2 25%, PEEP of 5. Blood gases show a pO2 of 104, pCO2 of 35 and a pH of 7.48. Currently, the patient is getting saline at 40 mL an hour, TPN at 75 mL an hour and Vital 1.2 at 30 with a goal of 45 mL an hour. The patient is being considered for transfer to [facility] because of the possibility of nonconvulsive status based on EEG. In addition, the patient has severe metabolic encephalopathy, MS, severe protein calorie malnutrition, chronic seizure activity and possible nonconvulsive status, multiple admissions for aspiration pneumonia and urinary tract infection, DVT, GERD, hypertension, DJD, neurogenic bladder, and poor overall functional performance. PHYSICAL EXAMINATION: VITAL SIGNS: Current vital signs are reviewed. Temperature 98.6. Heart rate 89, respiratory rate 24, blood pressure 123/85 mean 97, saturations are 98%. Central venous pressure is 6 cm of water. GENERAL: Appears in no acute distress. Unchanged. HEENT: Examination is grossly unremarkable. He has an orally placed endotracheal tube. There is an orally placed NG tube. NECK is supple. Full range of motion. No adenopathy. CARDIOVASCULAR: Examination reveals a regular rhythm and rate. Heart rate is 89 beats per minute. S1, S2 normal. There is no murmur. LUNGS: Reveal diffuse coarse bilateral rhonchi. Breath sounds equal. ABDOMEN: Soft. Bowel sounds are noted. EXTREMITIES are intact. The patient has flexion contractures. SKIN: Skin reveals a few areas of ecchymoses. NEUROLOGIC: Examination reveals patient who is very poorly responsive. This is his baseline. LABS: Reviewed. White count 6.1, hemoglobin 8.9, hematocrit 29.1, platelet count is 406,000, blood gases have been noted. Sodium 138, potassium 3.9, chloride 105, CO2 25, anion gap is 8. BUN and creatinine were 31 and 0.91. Calcium 8.2. Microbiologic study show evidence of sputum from July 21 showing evidence of Pseudomonas aeruginosa and Corynebacterium striatum. The Corynebacterium is likely a contaminant. Chest x-ray from July 24 shows a right basilar focal airspace opacity which is oval in shape. It almost looks like a pseudotumor to me rather than an actual infiltrate. CURRENT MEDICATIONS: Reviewed. He is currently on Tylenol, albuterol and Atrovent updrafts, aspirin, baclofen, Tegretol, chlorhexidine, Pepcid, Lasix subcu heparin, insulin p.r.n., Vimpat, Keppra, magnesium replacement, Reglan, metoprolol, Zosyn, potassium replacement, and saline IV. ASSESSMENT: 1. Acute hypoxemic respiratory failure secondary to aspiration pneumonia as well as Pseudomonas aeruginosa pneumonia, requiring intubation and mechanical ventilation on July 21, 2020. 2. Metabolic encephalopathy with severe cognitive impairment. 3. History of multiple sclerosis, longstanding. 4. Moderate severe protein calorie malnutrition, status post PEG tube placement. 5. 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 6. Multiple admissions for aspiration pneumonia and urinary tract infections. 7. History of deep venous thrombosis. 8. History of gastroesophageal reflux disease. 9. History of hypertension. 10.Degenerative joint disease. 11.History of neurogenic bladder. 12.General medical debility. PLAN: The patient may be transferred to [facility]. The patient has been accepted but no bed is available. We will continue to follow. The TPN will be cut in half. We will increase his tube feedings to goal. The patient will have updrafts added to his regimen. Additional recommendations and suggestions are forthcoming. Prognosis is guarded. The patient eventually may need tracheostomy tube. Critical care time is 33 minutes. MMODL / IJN: [id number] /
[2020-07-24 17:40] LABS: Glucose,Whole Blood 113 mg/dL (75-99)
--- NOTE | 2020-07-24 21:18 | PN ---
PROGRESS NOTE DATE OF SERVICE: 07/24/2020 This 60-year-old gentleman was admitted with acute hypoxic respiratory failure secondary to aspiration pneumonia, is being closely monitored. Patient also had acute on chronic metabolic encephalopathy. Past medical history reviewed. REVIEW OF SYSTEMS: Could not be taken because of mechanical ventilation. CURRENT MEDICATIONS: Reviewed and include: Tylenol, DuoNeb, aspirin, Lioresal, Tegretol, Peridex, Pepcid, heparin, Vimpat, Reglan. Doses reviewed. PHYSICAL EXAM: Patient is mechanically sedated. Pulse is 92. Blood pressure 117/70, respiration 20, temperature 98.5, pulse ox is 100% on mechanical ventilation. HEENT: Conjunctivae normal. NECK: No JVD. CARDIOVASCULAR: S1, S2 muffled. RESPIRATIONS: Breath sounds diminished in the bases. Bilateral scattered rhonchi and crackles. ABDOMEN: Soft. NERVOUS SYSTEM: The patient is mechanically ventilated and sedated. LABS: WBC 6.2, hemoglobin is 8.9 ABGs noted. Accu-Cheks 131. The chest x-ray which was reviewed personally by me showed significant pneumonia in the right side with possibly aspiration pneumonia. ASSESSMENT: 1. Acute aspiration pneumonia, right-sided, with possible Pseudomonas aeruginosa with acute hypoxic respiratory on mechanical ventilation. 2. Acute on chronic metabolic encephalopathy with change in mental status. 3. Severe cognitive impairment. 4. Chronic advanced multiple sclerosis. 5. Severe protein calorie malnutrition. 6. PEG tube feeding. 7. Chronic deep vein thrombosis. 8. Gastroesophageal reflux disease. 9. Degenerative joint disease. 10.History of chronic neurogenic bladder, indwelling catheter. 11.Chronic medical debility. 12.Chronic dysphagia. 13.History of depression. 14.Partial status epilepticus. 15.Anemia, normocytic. 16.FULL CODE. RECOMMENDATIONS AND DISCUSSION: This 60-year-old gentleman who presented with multiple complex medical issues, at this time I recommend continue the current medication, continue symptomatic treatment. Otherwise, continue the mechanical ventilation. Continue the antibiotics. Cultures are noted. Otherwise closely follow with Dr. Hawkins. Continue mechanical ventilation. Prognosis guarded. Medications reviewed. Further recommendations to follow. COVID-19 rapid test was negative. MMODL / IJN: [id number] /
[2020-07-24 23:54] LABS: Glucose,Whole Blood 95 mg/dL (75-99)
[2020-07-25] MEDS: IPRATROPIUM-ALBUTEROL 3 ML NEB INHALATION SCH ×7 (00:43→23:45)
[2020-07-25] MEDS: PIPERACILLIN-TAZOBACTAM 3.375 GM in SODIUM CHLORIDE 0.9% 100 ML IVPB SCH ×3 (00:56→14:50)
[2020-07-25] MEDS: METOCLOPRAMIDE 5 MG/ML 2 ML VIAL IVP SCH ×4 (00:56→17:41)
[2020-07-25] MEDS: INSULIN ASPART (NovoLOG) 100 UNIT/ML VIAL SQ SCH ×4 (00:58→17:39)
[2020-07-25 04:38] LABS: Basophils # (A) 0.1 k/uL (0-0.2); Basophils % (A) 1 %; Eosinophils # (A) 0.5 k/uL (0-0.7); Eosinophils % (A) 7 %; HCT 30.2 % (39.0-53.0); HGB 9.3 gm/dL (13.0-17.5); Hypochromasia Slight; Lymphocytes # (A) 1.1 k/uL (1.0-4.8); Lymphocytes % (A) 15 %; MCH 27.2 pg (25.0-35.0); MCHC 30.9 g/dL (31.0-37.0); MCV 88.2 fL (80.0-100.0); Mean Platelet Volume 9.1; Monocytes # (A) 0.5 k/uL (0-1.0); Monocytes % (A) 7 %; Neutrophils # (A) 5.3 k/uL (1.3-7.7); Neutrophils % (A) 69 %; Platelet Count 400 k/uL (150-450); RBC 3.43 m/uL (4.30-5.90); RDW 15.1 % (11.5-15.5); WBC 7.7 k/uL (3.8-10.6)
[2020-07-25 04:46] LABS: African American GFR (CKD) >90 (>60 ml/min/1.73 sqM); Anion Gap 6 mmol/L; Blood Urea Nitrogen 29 mg/dL (9-20); Calcium 8.6 mg/dL (8.4-10.2); Carbon Dioxide 26 mmol/L (22-30); Chloride 105 mmol/L (98-107); Glucose 118 mg/dL (74-99); Magnesium 2.1 mg/dL (1.6-2.3); Non-African American GFR(CKD) 87 (>60 ml/min/1.73 sqM); Phosphorus 4.1 mg/dL (2.5-4.5); Potassium 4.1 mmol/L (3.5-5.1); Sodium 137 mmol/L (137-145)
[2020-07-25 05:40] LABS: ABG Base Excess 2.1 mmol/L; ABG HCO3 26 mmol/L (21-25); ABG Oxygen Saturation 99.1 % (94-97); ABG PCO2 35 mmHg (35-45); ABG PH 7.47 (7.35-7.45); ABG PO2 108 mmHg (83-108); ABG TCO2 27 mmol/L (19-24)
[2020-07-25 06:16] LABS: Glucose,Whole Blood 125 mg/dL (75-99)
[2020-07-25] MEDS: BACLOFEN 10 MG TAB PEG/G-TUBE SCH ×3 (06:18→21:14)
--- NOTE | 2020-07-25 06:56 | XR ---
EXAMINATION TYPE: XR chest 1V portable DATE OF EXAM: 07/25/2020 CLINICAL HISTORY: Difficulty breathing progress study. TECHNIQUE: Single AP portable semiupright view of the chest is obtained. COMPARISON: Chest x-ray from one day earlier and older studies. FINDINGS: Stable endotracheal tube, orogastric tube, right-sided PICC line, and left sided internal jugular central venous catheter. Stable focal right lower lung masslike consolidation. Background chronic parenchymal change bilateral ly. Left lung remains clear. Cardiac silhouette size stable and within normal limits. Old fracture de formity left posterior lateral fourth rib redemonstrated. [place] osseous structures demineralized. IMPRESSION: Stable right basilar pneumonic consolidation. No new infiltrate seen.
[2020-07-25] MEDS: LACOSAMIDE 150 MG TABLET PEG/G-TUBE SCH ×2 (08:28→21:15)
[2020-07-25] MEDS: METOPROLOL TARTRATE 50 MG TAB PEG/G-TUBE SCH ×2 (08:28→21:14)
[2020-07-25] MEDS: CHLORHEXIDINE GLUCONATE 15 ML CUP MUCOUS MEM SCH ×2 (08:28→21:15)
[2020-07-25] MEDS: FUROSEMIDE 10 MG/ML 4 ML VIAL IV SCH ×2 (08:28→21:15)
[2020-07-25] MEDS: levETIRAcetam IV 1,000 MG in SALINE 1 100ML.BAG IVPB SCH ×2 (08:28→21:15)
[2020-07-25] MEDS: carBAMazepine 200 MG TAB PEG/G-TUBE SCH ×2 (08:28→21:15)
[2020-07-25] MEDS: ASPIRIN 81 MG PEG/G-TUBE SCH (08:29)
[2020-07-25] MEDS: FAMOTIDINE 20 MG/2 ML VIAL IV SCH ×2 (08:29→21:15)
[2020-07-25] MEDS: HEPARIN SODIUM,PORCINE 5,000 UNIT/ML 1 ML VIAL SQ SCH ×2 (08:29→21:15)
--- NOTE | 2020-07-25 10:30 | P.PN ---
Subjective Progress Note Date: 07/25/20 Principal diagnosis: Acute hypoxic respiratory failure secondary to suspected aspiration This is a 60-year-old gentleman with a known history of multiple sclerosis, PEG tube placement, recurrent urinary tract infections, sepsis, hypertension, severe cognitive impairment, bowel and urinary incontinence, neurogenic bladder, previous pneumonias. He had recently been in [facility] and on the mechanical vent. He was discharged to an extended care facility for 1 day and bandar keita was brought back to our emergency room here on 07/16/2020. He was admitted for acute pulmonary edema to the selective care unit. Earlier this morning and A team was called as he developed increasing shortness of breath, tachycardia, tachypnea he was subsequently intubated and transferred to the intensive care unit. We are seeing him today in consultation. He is on the mechanical ventilator at assist control rate of 20, tidal volume 450, FiO2 100% and a PEEP of 10. Earlier blood gases revealed a pO2 of 46, pCO2 of 35 minutes pH is 7.45. He is on the Rachelle at 30 mcg/kg/m. Receiving TPN for nutrition currently at 30 MLS per hour with a goal of 75. 0.9#and 40 ML's per hour. Chest x-ray reveals persistent right middle lobe focal airspace density. Blood culture and sputum cultures pending. White count 17.6. Hemoglobin 13.0. Sodium 146. Potassium 3.8. Creatinine 1.23. He is currently on Lasix 40 mg every 12 hours, heparin for DVT prophylaxis, Pepcid for GI prophylaxis. He is on Keppra and Vimpat for his history of seizures. Antibiotics in the form of Zosyn. The patient is seen today 07/22/2020 in follow-up in the intensive care unit. He remains intubated on the mechanical ventilator with assist control of 20, tidal volume 450, FiO2 40% and a PEEP of 5. Her blood gases reveal pO2 165, CO2 33, pH 7.48. He remains sedated on propofol at 30 mcg/kg/m. Receiving nutrition via TPN currently at 75 ML's per hour with lipids. 0.9 normal saline at 40 ML's per hour. Chest x-ray reveals persistent right basilar pneumonic consolidation. No new infiltrates. No significant change from previous. Blood culture reveals no growth. Sputum culture pending. White count 12.4. Hemoglobin 9.0. Sodium 142. Potassium 3.7. Creatinine 1.28. Continued on IV diuretics. Antibiotics in the form of Zosyn. The patient is seen today 07/23/2020 in follow-up in the intensive care unit. He remains on mechanical ventilator. Assist control of rate of 20, tidal volume 450, FiO2 25%, PEEP of 5. Morning blood gases reveal a pO2 of 99, pCO2 34, pH 7.48. He remains off sedation. Remains unresponsive. He is being nourished with TPN at 75 ML's per hour along with vital AF 1.2 with trickle feeds at 10 MLS per hour with a goal of 45. EEG reveals a nonconvulsive status. Neurology is on the case. Blood cultures reveal no growth. Sputum culture revealing a preliminary of pseudomonas species. White count 8.0. Hemoglobin 8.8. Sodium 139. Potassium 3.7. Creatinine 1.08. He remains on IV diuretics 40 mg every 12 hours, bronchodilators, antibiotics in the form of Zosyn. Chest x-ray continues to show prominent focal ovoid opacity in the right mid to lower lung. Suspect pseudotumor versus rounded atelectasis The patient is seen today 07/25/2020 in follow-up in the intensive care unit. He is currently resting in bed. He does open his eyes spontaneously. No other changes neurologically. He remains intubated on mechanical ventilator. Current settings assist-control rate of 20, tidal volume 450, FiO2 25%, PEEP of 5. Morning blood gases reveal a P O2 of 108, pCO2 35, pH 7.47. He remains on 0.9 normal saline at 40 ML's per hour. Vital AF 1.245 ML's per hour which is goal now. Sputum cultures positive for pseudomonas aeruginosa and corynebacterium striatum. Blood culture reveals no growth. White count 7.7. Hemoglobin 9.3. Sodium 137. Potassium 4.1. Creatinine 0.95. He remains on bronchodilators, IV diuretics, antibiotics in the form of Zosyn, heparin for DVT prophylaxis, Pepcid for GI prophylaxis. Chest x-ray continues to show a stable focal right lower lung masslike consolidation/pseudotumor. Objective - Vital Signs Vital signs: Vital Signs Temp 97.9 F 07/25/20 08:00 Pulse 86 07/25/20 10:00 Resp 21 07/25/20 10:00 BP 117/79 07/24/20 20:00 Pulse Ox 97 07/25/20 10:00 Intake & Output 07/24/20 07/25/20 07/25/20 18:59 06:59 18:59 Intake Total 2818 722 674 Output Total 2180 2085 845 Balance 638 -1363 -171 Weight 67 kg Intake: IV 780 480 360 Piperacillin-Tazobactam 3 200 100 .375 gm In Sodium Chloride 0.9% 100 ml @ 25 mls/hr IVPB Q8HR [facility] Rx# :[id number] Sodium Chloride 0.9% 1, 480 480 160 000 ml @ 40 mls/hr IV . Q24H [facility] Rx#:[id number] levETIRAcetam IV 1,000 mg 100 100 In Saline 1 100ml.bag @ 400 mls/hr IVPB Q12HR [facility] Rx#:[id number] Intake, IV Titration 1418 37 74 Amount Amino Acid 5%-D15w+Lytes* 407 37 74 E* 1,000 ml @ 37 mls/hr IV .BY DURATION [facility] Rx#: [id number] Mvi, Adult No.4 with Vit 1011 K 10 ml Trace (Conc-1Ml/ Dose) 1 ml In Amino Acid 5%-D15w+Lytes*E* 1,000 ml @ 37 mls/hr IV .BY DURATION [facility] Rx#: [id number] Tube Feeding 440 205 180 Other 180 60 Output: Urine 2180 2085 845 Other: Voiding Method Indwelling Catheter Indwelling Catheter Indwelling Catheter # Bowel Movements 1 ABP, PAP, CO, CI - Last Documented Arterial Blood Pressure 127/68 - Exam GENERAL EXAM: Intubated, opening eyes spontaneously, frail-looking 60-year-old gentleman, in no apparent distress. HEAD: Normocephalic. EYES: Sluggish reaction of pupils, equal size. NOSE: Clear with pink turbinates. THROAT: Oral endotracheal and gastric tube secured in place. No erythema or exudates. NECK: No masses, no JVD. CHEST: No chest wall deformity. LUNGS: Equal air entry with bilateral scattered rhonchi more so on the right. CVS: S1 and S2 normal with no audible murmur, regular rhythm. ABDOMEN: PEG tube exit site clean and dry. No hepatosplenomegaly, normal bowel sounds, no guarding or rigidity. SPINE: No scoliosis or deformity SKIN: No rashes CENTRAL NERVOUS SYSTEM: No focal deficits, tone is normal in all 4 extremities. EXTREMITIES: Contractures. There is no peripheral edema. No clubbing, no cyanosis. Peripheral pulses are intact. - Labs CBC & Chem 7: 07/25/20 04:15 07/25/20 04:15 Labs: Abnormal Lab Results - Last 24 Hours (Table) 07/24/20 07/24/20 07/25/20 Range/Units 12:40 17:36 04:15 RBC (4.30-5.90) m/uL Hgb (13.0-17.5) gm/dL Hct (39.0-53.0) % MCHC (31.0-37.0) g/dL ABG pH (7.35-7.45) ABG HCO3 (21-25) mmol/L ABG Total CO2 (19-24) mmol/L ABG O2 Saturation (94-97) % BUN 29 H (9-20) mg/dL Glucose 118 H (74-99) mg/dL POC Glucose (mg/dL) 122 H 113 H (75-99) mg/dL 07/25/20 07/25/20 07/25/20 Range/Units 04:15 05:34 06:14 RBC 3.43 L (4.30-5.90) m/uL Hgb 9.3 L (13.0-17.5) gm/dL Hct 30.2 L (39.0-53.0) % MCHC 30.9 L (31.0-37.0) g/dL ABG pH 7.47 H (7.35-7.45) ABG HCO3 26 H (21-25) mmol/L ABG Total CO2 27 H (19-24) mmol/L ABG O2 Saturation 99.1 H (94-97) % BUN (9-20) mg/dL Glucose (74-99) mg/dL POC Glucose (mg/dL) 125 H (75-99) mg/dL Assessment and Plan Assessment: 1 Acute hypoxic respiratory failure secondary to aspiration pneumonia and fluid volume overload requiring intubation mechanical ventilatory support on 07/21/2020. Sputum culture with preliminary pseudomonas aeruginosa and corynebacterium striatum. Currently on Zosyn. 2 Metabolic encephalopathy in a patient with a known history of severe cognitive impairment 3 History of multiple sclerosis 4 Moderate to severe protein calorie malnutrition secondary to above him a status post PEG tube placement 5 History of seizures, EEG from 07/22/2020 reveals continuous focal slowing with periodic lateralized epileptiform discharges involving the right hemispheric region. May suggest nonconvulsive, partial status epilepticus. Background slowing consistent with encephalopathy. 6 Multiple admissions for aspiration pneumonia and urinary tract infections 7 History of DVT 8 History of GERD 9 History of hypertension 10 Osteoarthritis 11 History of neurogenic bladder 12 Poor overall functional performance based on the above-mentioned multiple comorbidities. Plan: The patient was seen and evaluated by Dr. Hawkins Chest x-ray, ABGs and labs reviewed Continue current vent setting Continue antibiotics Continue nutritional support, now at goal on tube feedings Discontinue TPN Discontinue oral gastric tube. Overall prognosis remains quite poor and guarded Would recommend tracheostomy tube placement or transfer back to [facility] where the patient was recently hospitalized We will continue to follow and make further recommendations based on his clinical status Critical care time 38 minutes I, the cosigning physician, performed a history & physical examination of the patient. Lungs sounds with bilateral scattered rhonchi more so on the right. Maintaining good O2 saturations in the 90s on 25% FiO2 via the mechanical ventilator. I discussed the assessment and plan of care with my nurse practitioner, Angela Hendrix. I attest to the above note as dictated by her.
[2020-07-25 12:05] LABS: Glucose,Whole Blood 111 mg/dL (75-99)
[2020-07-25] MEDS: SODIUM CHLORIDE 0.9% 1,000 ML IV SCH (12:08)
--- NOTE | 2020-07-25 17:32 | PN ---
PROGRESS NOTE DATE OF SERVICE: 07/25/2020 This 60-year-old gentleman admitted with acute hypoxic respiratory failure secondary to aspiration pneumonia is being closely monitored. Patient also had acute on chronic metabolic encephalopathy. The patient also had abnormal EEG and 24 hour EEG monitoring was recommended. The patient was also being considered for [facility] transfer at this time. Dr. Hawkins is following the patient closely. I recommend to continue current medication, continue the nutrition support and discontinue the TPN and continue to monitor. The most recent chest x-ray which was reviewed personally by me showed right lower lobe lesion, consolidation. REVIEW OF SYSTEMS: Could not be taken, the patient is mechanically ventilated and sedated. CURRENT MEDICATIONS: Reviewed include DuoNeb, aspiring, Lioresal, Tegretol, Peridex, Pepcid, Lasix, Heparin, NovoLog, Keppra, Vimpat, Reglan, Lopressor, replacement protocols and Zosyn IV. PHYSICAL EXAMINATION: Patient is mechanically sedated on the vent. Pulse is 92, blood pressure 114/86, respiration 20, temperature 98 degrees, pulse ox 98% on 24% FiO2. HEENT: Conjunctivae normal. Oral mucosa moist. NECK: No jugular venous distention. No lymph node enlargement. CARDIOVASCULAR: S1, S2, muffled. No S3, no S4, RESPIRATORY: Diminished breath sounds at the bases. A few scattered rhonchi and crackles. ABDOMEN: Soft, nontender. NERVOUS SYSTEM: Mechanically sedated. LAB: WBC 8, hemoglobin ( ). Otherwise, other labs are noted. ASSESSMENT: 1. Acute aspiration pneumonia, right-sided, with possible Pseudomonas aeruginosa with acute hypoxic respiratory failure on mechanical ventilation. 2. Acute on chronic metabolic encephalopathy with change in mental status. 3. Abnormal EEG, rule out seizure disorder. 4. Severe cognitive impairment. 5. Chronic advanced multiple sclerosis. 6. Severe protein calorie malnutrition. 7. PEG tube feeding. 8. Chronic deep venous thrombosis. 9. Gastroesophageal reflux disease. 10.Degenerative joint disease. 11.History of chronic neurogenic bladder, indwelling catheter. 12.Chronic medical debility. 13.Chronic dysphagia. 14.History of depression. 15.Partial status epilepticus possibly. 16.Anemia, normocytic. 17.FULL CODE. RECOMMENDATIONS AND DISCUSSION: Recommend to continue current management and continue symptomatic treatment. Continue with empiric antibiotics. Closely monitor and follow with Dr. Hawkins. Otherwise, continue the antibiotics and close follow with multiple consultants. Possible transfer to [facility]. Otherwise, guarded prognosis. Further recommendations to follow. MMODL / IJN: [id number] /
[2020-07-25 17:40] LABS: Glucose,Whole Blood 109 mg/dL (75-99)
[2020-07-26 00:08] LABS: Glucose,Whole Blood 103 mg/dL (75-99)
[2020-07-26] MEDS: INSULIN ASPART (NovoLOG) 100 UNIT/ML VIAL SQ SCH ×5 (00:09→23:48)
[2020-07-26] MEDS: METOCLOPRAMIDE 5 MG/ML 2 ML VIAL IVP SCH ×5 (00:20→23:55)
[2020-07-26] MEDS: PIPERACILLIN-TAZOBACTAM 3.375 GM in SODIUM CHLORIDE 0.9% 100 ML IVPB SCH ×3 (00:20→16:49)
[2020-07-26] MEDS: IPRATROPIUM-ALBUTEROL 3 ML NEB INHALATION SCH ×6 (03:33→23:40)
[2020-07-26] MEDS: BACLOFEN 10 MG TAB PEG/G-TUBE SCH ×3 (05:03→21:56)
[2020-07-26 05:06] LABS: Basophils % (A) 1 %; Eosinophils # (A) 0.5 k/uL (0-0.7); Eosinophils % (A) 7 %; HCT 31.7 % (39.0-53.0); HGB 9.6 gm/dL (13.0-17.5); Hypochromasia Moderate; Lymphocytes # (A) 1.2 k/uL (1.0-4.8); Lymphocytes % (A) 17 %; MCH 26.6 pg (25.0-35.0); MCHC 30.2 g/dL (31.0-37.0); MCV 88.3 fL (80.0-100.0); Monocytes # (A) 0.5 k/uL (0-1.0); Monocytes % (A) 7 %; Neutrophils % (A) 67 %; Platelet Count 353 k/uL (150-450); RDW 15.4 % (11.5-15.5); WBC 7.4 k/uL (3.8-10.6)
[2020-07-26 05:12] LABS: Glucose,Whole Blood 112 mg/dL (75-99)
[2020-07-26 05:21] LABS: African American GFR (CKD) >90 (>60 ml/min/1.73 sqM); Anion Gap 8 mmol/L; Blood Urea Nitrogen 31 mg/dL (9-20); Calcium 8.6 mg/dL (8.4-10.2); Carbon Dioxide 24 mmol/L (22-30); Chloride 108 mmol/L (98-107); Glucose 115 mg/dL (74-99); Non-African American GFR(CKD) 79 (>60 ml/min/1.73 sqM); Phosphorus 4.3 mg/dL (2.5-4.5); Potassium 3.5 mmol/L (3.5-5.1); Sodium 140 mmol/L (137-145)
[2020-07-26] MEDS: POTASSIUM CHLORIDE 20 MEQ in WATER FOR INJECTION 1 100ML.BAG IVPB SCH ×2 (05:36→09:22)
[2020-07-26 06:01] LABS: ABG Base Excess 1.3 mmol/L; ABG HCO3 26 mmol/L (21-25); ABG Oxygen Saturation 99.4 % (94-97); ABG PCO2 38 mmHg (35-45); ABG PH 7.44 (7.35-7.45); ABG PO2 110 mmHg (83-108); ABG TCO2 27 mmol/L (19-24); Allen Test Performed? Yes
--- NOTE | 2020-07-26 07:54 | XR ---
EXAMINATION TYPE: XR chest 1V portable DATE OF EXAM: 07/26/2020 Comparison: 07/25/2020 Clinical History: 60-year-old male Tube placement Findings: ET tube tip at the level of the medial clavicular heads. Left CVC tip in the upper right atrium. Hear t normal size. Right PICC tip in the upper right atrium. Old healed left-sided rib fracture deformiti es. The patient's focal masslike opacity may be projecting behind the right hemidiaphragm on the curr ent exam. Mild interstitial density is unchanged. No sizable effusion. Impression: Patient's masslike area of consolidation may be projecting behind the dome of the right hemidiaphragm on the current exam. Continued follow-up recommended.
[2020-07-26] MEDS: ASPIRIN 81 MG PEG/G-TUBE SCH (09:22)
[2020-07-26] MEDS: CHLORHEXIDINE GLUCONATE 15 ML CUP MUCOUS MEM SCH (09:23)
[2020-07-26] MEDS: carBAMazepine 200 MG TAB PEG/G-TUBE SCH ×2 (09:23→20:45)
[2020-07-26] MEDS: levETIRAcetam IV 1,000 MG in SALINE 1 100ML.BAG IVPB SCH ×2 (09:24→20:45)
[2020-07-26] MEDS: FAMOTIDINE 20 MG/2 ML VIAL IV SCH ×2 (09:24→20:46)
[2020-07-26] MEDS: FUROSEMIDE 10 MG/ML 4 ML VIAL IV SCH ×2 (09:24→20:47)
[2020-07-26] MEDS: HEPARIN SODIUM,PORCINE 5,000 UNIT/ML 1 ML VIAL SQ SCH ×2 (09:24→20:46)
[2020-07-26] MEDS: METOPROLOL TARTRATE 50 MG TAB PEG/G-TUBE SCH ×2 (09:27→20:45)
[2020-07-26] MEDS: LACOSAMIDE 150 MG TABLET PEG/G-TUBE SCH ×2 (09:27→20:45)
[2020-07-26] MEDS: SODIUM CHLORIDE 0.9% 1,000 ML IV SCH (09:47)
[2020-07-26 10:02] LABS: ABG Base Excess -0.4 mmol/L; ABG HCO3 25 mmol/L (21-25); ABG Oxygen Saturation 98.2 % (94-97); ABG PCO2 41 mmHg (35-45); ABG PH 7.39 (7.35-7.45); ABG PO2 97 mmHg (83-108); ABG TCO2 26 mmol/L (19-24)
[2020-07-26 10:03] LABS: Allen Test Performed? No
[2020-07-26 11:06] VITALS: BMI 22.4
[2020-07-26 11:59] LABS: Glucose,Whole Blood 99 mg/dL (75-99)
--- NOTE | 2020-07-26 12:35 | P.PN ---
Subjective Progress Note Date: 07/25/20 This is a 60-year-old gentleman with a known history of multiple sclerosis, PEG tube placement, recurrent urinary tract infections, sepsis, hypertension, severe cognitive impairment, bowel and urinary incontinence, neurogenic bladder, previous pneumonias. He had recently been in [facility] and on the mechanical vent. He was discharged to an extended care facility for 1 day and then was brought back to our emergency room here on 07/16/2020. He was admitted for acute pulmonary edema to the selective care unit. Earlier this morning and A team was called as he developed increasing shortness of breath, tachycardia, tachypnea he was subsequently intubated and transferred to the intensive care unit. We are seeing him today in consultation. He is on the mechanical ventilator at assist control rate of 20, tidal volume 450, FiO2 100% and a PEEP of 10. Earlier blood gases revealed a pO2 of 46, pCO2 of 35 minutes pH is 7.45. He is on the Prop at 30 mcg/kg/m. Receiving TPN for nutrition currently at 30 MLS per hour with a goal of 75. 0.9#and 40 ML's per hour. Chest x-ray reveals persistent right middle lobe focal airspace density. Blood culture and sputum cultures pending. White count 17.6. Hemoglobin 13.0. Sodium 146. Potassium 3.8. Creatinine 1.23. He is currently on Lasix 40 mg every 12 hours, heparin for DVT prophylaxis, Pepcid for GI prophylaxis. He is on Keppra and Vimpat for his history of seizures. Antibiotics in the form of Zosyn. The patient is seen today 07/22/2020 in follow-up in the intensive care unit. He remains intubated on the mechanical ventilator with assist control of 20, tidal volume 450, FiO2 40% and a PEEP of 5. Her blood gases reveal pO2 165, CO2 33, pH 7.48. He remains sedated on propofol at 30 mcg/kg/m. Receiving nutrition via TPN currently at 75 ML's per hour with lipids. 0.9 normal saline at 40 ML's per hour. Chest x-ray reveals persistent right basilar pneumonic consolidation. No new infiltrates. No significant change from previous. Blood culture reveals no growth. Sputum culture pending. White count 12.4. Hemoglo bin 9.0. Sodium 142. Potassium 3.7. Creatinine 1.28. Continued on IV diuretics. Antibiotics in the form of Zosyn. The patient is seen today 07/23/2020 in follow-up in the intensive care unit. Herbie garnett remains on mechanical ventilator. Assist control of rate of 20, tidal volume 450, FiO2 25%, PEEP of 5. Morning blood gases reveal a pO2 of 99, pCO2 34, pH 7.48. He remains off sedation. Remains unresponsive. He is being nourished with TPN at 75 ML's per hour along with vital AF 1.2 with trickle feeds at 10 MLS per hour with a goal of 45. EEG reveals a nonconvulsive status. Neurology is on the case. Blood cultures reveal no growth. Sputum culture revealing a preliminary of pseudomonas species. White count 8.0. Hemoglobin 8.8. Sodium 139. Potassium 3.7. Creatinine 1.08. He remains on IV diuretics 40 mg every 12 hours, bronchodilators, antibiotics in the form of Zosyn. Chest x-ray continues to show prominent focal ovoid opacity in the right mid to lower lung. Suspect pseudotumor versus rounded atelectasis The patient is seen today 07/25/2020 in follow-up in the intensive care unit. He is currently resting in bed. He does open his eyes spontaneously. No other changes neurologically. He remains intubated on mechanical ventilator. Current settings assist-control rate of 20, tidal volume 450, FiO2 25%, PEEP of 5. Morning blood gases reveal a P O2 of 108, pCO2 35, pH 7.47. He remains on 0.9 normal saline at 40 ML's per hour. Vital AF 1.245 ML's per hour which is goal now. Sputum cultures positive for pseudomonas aeruginosa and corynebacterium striatum. Blood culture reveals no growth. White count 7.7. Hemoglobin 9.3. Sodium 137. Potassium 4.1. Creatinine 0.95. He remains on bronchodilators, IV diuretics, antibiotics in the form of Zosyn, heparin for DVT prophylaxis, Pepcid for GI prophylaxis. Chest x-ray continues to show a stable focal right lower lung masslike consolidation/pseudotumor. On 07/26/2020, the patient is off sedation and is noted to be interactive opening up his eyes and looking around and grimacing to painful stimulation. He is not following any commands. He had a adequate cough abdominal bleeding the orotracheal tube. In terms of his mechanical ventilation, the patient remains on assist control mode at the rate of 20 with a tidal volume of 450 and PEEP of 5 with an FiO2 of 25%. Chest x-ray shows no acute abnormalities. He has a right lower lobe pneumonia which is improving. The patient is on IV fluids at 20 mL an hour. He is receiving enteral feeding for nutritional support with vital high protein at the rate of 45 mL an hour. His last EEG showed some questionable frontal lobe seizure activity. Clinically however the patient looks quite alert and awake. The patient based on this was switched to a pressure support mode of ventilation with a pressure support of 5 and a PEEP of 5. After doing this pressure support trial for a total of 45 minutes. Blood gases was done and the patient a pH of 7.39 with a pCO2 of 41 and pO2 of 97 and the patient was breathing comfortably. At that point I decided to extubate the patient on nasal cannula and currently is on 2 L about 2 by nasal cannula. As mentioned, the chest x-ray showed a mass area of consolidation in the right lower lobe projecting behind the dome of the right hemidiaphragm and the patient is currently covered with IV Zosyn. No seizure activity has been noted and the patient remains on a combination of Vimpat and. No other issues for now. He has a PEG tube for enteral feeding and nutritional support. Objective - Vital Signs Vital signs: Vital Signs Temp 98 F 07/25/20 16:00 Pulse 94 07/25/20 20:10 Resp 20 07/25/20 19:00 BP 117/79 07/24/20 20:00 Pulse Ox 97 07/25/20 19:00 Intake & Output 07/25/20 07/25/20 07/26/20 06:59 18:59 06:59 Intake Total 722 1534 110 Output Total 2085 1450 50 Balance -1363 84 60 Weight 67 kg Intake: IV 480 755 65 Piperacillin-Tazobactam 3 175 25 .375 gm In Sodium Chloride 0.9% 100 ml @ 25 mls/hr IVPB Q8HR [facility] Rx# :[id number] Sodium Chloride 0.9% 1, 480 480 40 000 ml @ 40 mls/hr IV . Q24H [facility] Rx#:[id number] levETIRAcetam IV 1,000 mg 100 In Saline 1 100ml.bag @ 400 mls/hr IVPB Q12HR [facility] Rx#:[id number] Intake, IV Titration 37 74 Amount Amino Acid 5%-D15w+Lytes* 37 74 E* 1,000 ml @ 37 mls/hr IV .BY DURATION [facility] Rx#: [id number] Tube Feeding 205 585 45 Other 120 Output: Urine 2085 1450 50 Other: Voiding Method Indwelling Catheter Indwelling Catheter ABP, PAP, CO, CI - Last Documented Arterial Blood Pressure 115/62 - Exam GENERAL EXAM: The patient has been extubated to 2 L about 2 by nasal cannula. Is a failed looking 60-year-old gentleman. He is quite contracted specially in lower extremities. He opens up his eyes spontaneously. He is not following any commands. Does not trachea. HEAD: Normocephalic. EYES: Sluggish reaction of pupils, equal size. NOSE: Clear with pink turbinates. THROAT: Oral endotracheal and gastric tube secured in place. No erythema or exudates. NECK: No masses, no JVD. CHEST: No chest wall deformity. LUNGS: Equal air entry with bilateral scattered rhonchi more so on the right. The patient has been noted to have adequate cough. CVS: S1 and S2 normal with no audible murmur, regular rhythm. ABDOMEN: PEG tube exit site clean and dry. No hepatosplenomegaly, normal bowel sounds, no guarding or rigidity. SPINE: No scoliosis or deformity SKIN: No rashes CENTRAL NERVOUS SYSTEM: No focal deficits, tone is normal in all 4 extremities. EXTREMITIES: Contractures. There is no peripheral edema. No clubbing, no cyanosis. Peripheral pulses are intact. - Labs CBC & Chem 7: 07/26/20 05:00 07/26/20 05:00 Labs: Abnormal Lab Results - Last 24 Hours (Table) 07/25/20 07/25/20 07/25/20 Range/Units 04:15 04:15 05:34 RBC 3.43 L (4.30-5.90) m/uL Hgb 9.3 L (13.0-17.5) gm/dL Hct 30.2 L (39.0-53.0) % MCHC 30.9 L (31.0-37.0) g/dL ABG pH 7.47 H (7.35-7.45) ABG HCO3 26 H (21-25) mmol/L ABG Total CO2 27 H (19-24) mmol/L ABG O2 Saturation 99.1 H (94-97) % BUN 29 H (9-20) mg/dL Glucose 118 H (74-99) mg/dL POC Glucose (mg/dL) (75-99) mg/dL 07/25/20 07/25/20 07/25/20 Range/Units 06:14 12:04 17:38 RBC (4.30-5.90) m/uL Hgb (13.0-17.5) gm/dL Hct (39.0-53.0) % MCHC (31.0-37.0) g/dL ABG pH (7.35-7.45) ABG HCO3 (21-25) mmol/L ABG Total CO2 (19-24) mmol/L ABG O2 Saturation (94-97) % BUN (9-20) mg/dL Glucose (74-99) mg/dL POC Glucose (mg/dL) 125 H 111 H 109 H (75-99) mg/dL Assessment and Plan Plan: 1 Acute hypoxic respiratory failure secondary to aspiration pneumonia and fluid volume overload requiring intubation mechanical ventilatory support on 07/21/20. Sputum culture with preliminary pseudomonas aeruginosa and corynebacterium striatum. Currently on Zosyn. The patient had an adequate cough. The patient adequate weaning parameters. The patient was given a trial a pressure support and subsequently he was extubated to 2 L of oxygen by nasal cannula. 2 Metabolic encephalopathy , multifactorial 3 History of multiple sclerosis with significant cognitive impairement 4 Moderate to severe protein calorie malnutrition secondary to above him a status post PEG tube placement, the patient is been tolerating enteral feeding for nutritional support 5 History of seizures, EEG from 07/22/2020 reveals continuous focal slowing with periodic lateralized epileptiform discharges involving the right hemispheric region. May suggest nonconvulsive, partial status epilepticus. Background slowing consistent with encephalopathy. The patient is currently on a combination of Vimpat and Keppra 6 Multiple admissions for aspiration pneumonia and urinary tract infections 7 History of DVT 8 History of GERD 9 History of hypertension 10 Osteoarthritis 11 History of neurogenic bladder 12 Poor overall functional performance based on the above-mentioned multiple comorbidities. Plan Extubated the patient to a nasal cannula 2 L Restart enteral feeding for nutritional support Aspiration precautions Continue IV Zosyn Monitor chest x-ray findings special with a right lower lobe pneumonia Continue Keppra Vimpat Continue supportive care will continue to follow. Long-term prognosis poor. The family still looking to transfer this patient to [facility] at a later stage. His stimulation was done and more than 30 minutes and this is a critically care evaluation. Time with Patient: Greater than 30
--- NOTE | 2020-07-26 13:32 | P.PN ---
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 Patient is mostly nonverbal but does usually understands conversations. Patient is still lethargic. Patient has a PEG PEG tube in place. There was a some epileptiform focus on the EEG because of which the patient probably will need continuous she is monitoring because of which patient will be transferred to [facility] for that reason. Patient is presently on Tegretol and Keppra. Neurology and pulmonology following the patient. Patient is presently on Zosyn. Sputum cultures are showing Corynebacterium striatum and pseudomonas aeruginosa disorder versus pansensitive. Sensitive to ciprofloxacin. Review of systems: Unable to assess All inpatient medications were reviewed and appropriate changes in these med ications as dictated in the interval history and assessment and plan. Objective - Vital Signs Vital signs: Vital Signs Temp 98.3 F 07/26/20 08:00 Pulse 95 07/26/20 12:04 Resp 24 07/26/20 12:00 BP 117/79 07/24/20 20:00 Pulse Ox 100 07/26/20 12:00 Intake & Output 07/25/20 07/26/20 07/26/20 18:59 06:59 18:59 Intake Total 1534 1335 940 Output Total 5611 629 7451 Balance 84 380 -695 Weight 68.9 kg 68.9 kg Intake: IV 755 705 640 Piperacillin-Tazobactam 3 175 125 100 .375 gm In Sodium Chloride 0.9% 100 ml @ 25 mls/hr IVPB Q8HR [facility] Rx# :[id number] Potassium Chloride 20 meq 200 In Water For Injection 1 100ml.bag @ 50 mls/hr IVPB Q2H [facility] Rx#: [id number] Sodium Chloride 0.9% 1, 480 480 240 000 ml @ 40 mls/hr IV . Q24H [facility] Rx#:[id number] levETIRAcetam IV 1,000 mg 100 100 100 In Saline 1 100ml.bag @ 400 mls/hr IVPB Q12HR [facility] Rx#:[id number] Intake, IV Titration 74 Amount Amino Acid 5%-D15w+Lytes* 74 E* 1,000 ml @ 37 mls/hr IV .BY DURATION [facility] Rx#: [id number] Tube Feeding 585 540 270 Other 120 90 30 Output: Urine 9902 257 0043 Other: Voiding Method Indwelling Catheter Indwelling Catheter Indwelling Catheter ABP, PAP, CO, CI - Last Documented Arterial Blood Pressure 137/76 - Exam PHYSICAL EXAMINATION: GENERAL: Patient is alert and able to assess his orientation contractures HEENT: Pupils are round and equally reacting to light. EOMI. No scleral icterus. No conjunctival pallor. Normocephalic, atraumatic. No pharyngeal erythema. No thyromegaly. CARDIOVASCULAR: S1 and S2 present. No murmurs, rubs, or gallops. PULMONARY: Chest is clear to auscultation, no wheezing or crackles. ABDOMEN: Soft, nontender, nondistended, normoactive bowel sounds. No palpable o rganomegaly. MUSCULOSKELETAL: No joint swelling or deformity. EXTREMITIES: No cyanosis, clubbing, or pedal edema. NEUROLOGICAL: Patient has significant contractures. SKIN: No rashes. - Labs CBC & Chem 7: 07/26/20 05:00 07/26/20 05:00 Labs: Abnormal Lab Results - Last 24 Hours (Table) 07/25/20 07/26/20 07/26/20 Range/Units 17:38 00:06 04:59 RBC (4.30-5.90) m/uL Hgb (13.0-17.5) gm/dL Hct (39.0-53.0) % MCHC (31.0-37.0) g/dL ABG pO2 (83-108) mmHg ABG HCO3 (21-25) mmol/L ABG Total CO2 (19-24) mmol/L ABG O2 Saturation (94-97) % Chloride (98-107) mmol/L BUN (9-20) mg/dL Glucose (74-99) mg/dL POC Glucose (mg/dL) 109 H 103 H 112 H (75-99) mg/dL 07/26/20 07/26/20 07/26/20 Range/Units 05:00 05:00 05:58 RBC 3.60 L (4.30-5.90) m/uL Hgb 9.6 L (13.0-17.5) gm/dL Hct 31.7 L (39.0-53.0) % MCHC 30.2 L (31.0-37.0) g/dL ABG pO2 110 H (83-108) mmHg ABG HCO3 26 H (21-25) mmol/L ABG Total CO2 27 H (19-24) mmol/L ABG O2 Saturation 99.4 H (94-97) % Chloride 108 H (98-107) mmol/L BUN 31 H (9-20) mg/dL Glucose 115 H (74-99) mg/dL POC Glucose (mg/dL) (75-99) mg/dL 07/26/20 Range/Units 09:58 RBC (4.30-5.90) m/uL Hgb (13.0-17.5) gm/dL Hct (39.0-53.0) % MCHC (31.0-37.0) g/dL ABG pO2 (83-108) mmHg ABG HCO3 (21-25) mmol/L ABG Total CO2 26 H (19-24) mmol/L ABG O2 Saturation 98.2 H (94-97) % Chloride (98-107) mmol/L BUN (9-20) mg/dL Glucose (74-99) mg/dL POC Glucose (mg/dL) (75-99) mg/dL Assessment and Plan Plan: -Acute hypoxic respiratory failure secondary to aspiration pneumonia: Patient is extubated today patient is on Zosyn patient has above-mentioned bacteria -Acute metabolic encephalopathy from sepsis which is improving -Multiple sclerosis with significant cognitive impairment. -Moderate protein calorie malnutrition patient has a PEG tube in place -Possible seizures with epileptiform focus patient will be discharged to [facility] for continuous seizure monitoring -History of DVT in the past -Hypotension -Neurogenic bladder for which patient is a full Which is chronic. Patient has extremely poor functionality overall.
[2020-07-26 18:24] LABS: Glucose,Whole Blood 94 mg/dL (75-99)
--- NOTE | 2020-07-26 19:21 | P.PN ---
Subjective Progress Note Date: 07/26/20 The patient was seen at bedside and no seizure-like activity per the patient nurse. Patient was supposed to be transferred to by the the bed was pending. Objective - Vital Signs Vital signs: Vital Signs Temp 98.3 F 07/26/20 08:00 Pulse 92 07/26/20 18:00 Resp 30 H 07/26/20 18:00 BP 117/79 07/24/20 20:00 Pulse Ox 100 07/26/20 18:00 Intake & Output 07/26/20 07/26/20 07/27/20 06:59 18:59 06:59 Intake Total 1335 1505 Output Total 955 2450 Balance 380 -945 Weight 68.9 kg 68.9 kg Intake: IV 705 980 Piperacillin-Tazobactam 3 125 200 .375 gm In Sodium Chloride 0.9% 100 ml @ 25 mls/hr IVPB Q8HR [facility] Rx# :[id number] Potassium Chloride 20 meq 200 In Water For Injection 1 100ml.bag @ 50 mls/hr IVPB Q2H [facility] Rx#: [id number] Sodium Chloride 0.9% 1, 480 480 000 ml @ 40 mls/hr IV . Q24H [facility] Rx#:[id number] levETIRAcetam IV 1,000 mg 100 100 In Saline 1 100ml.bag @ 400 mls/hr IVPB Q12HR [facility] Rx#:[id number] Tube Feeding 540 495 Other 90 30 Output: Urine 955 2450 Other: Voiding Method Indwelling Catheter Indwelling Catheter ABP, PAP, CO, CI - Last Documented Arterial Blood Pressure 126/66 - Exam Patient exam is limited given his condition: Higher mental function: Patient is awake alert and nonverbal (per medical record the seems to be baseline). Does not follow commands. Cranial nerves: The pupils are round, equal and reactive to light. The pupils are round tremulous bilaterally. Visual prater are full to threat throughout. No facial weakness noted bilaterally. Motor Unable to assess because of his condition. The strength unable to assess. The patient has decreased tone in the bilateral upper extremity and increased tone in the bilateral lower extremity which seems consistent with the examination on 2019 (gets Botox). Reflexes is 1 positive throughout. Plantar is mute bilaterally. - Labs CBC & Chem 7: 07/26/20 05:00 07/26/20 05:00 Labs: Abnormal Lab Results - Last 24 Hours (Table) 07/26/20 07/26/20 07/26/20 Range/Units 00:06 04:59 05:00 RBC (4.30-5.90) m/uL Hgb (13.0-17.5) gm/dL Hct (39.0-53.0) % MCHC (31.0-37.0) g/dL ABG pO2 (83-108) mmHg ABG HCO3 (21-25) mmol/L ABG Total CO2 (19-24) mmol/L ABG O2 Saturation (94-97) % Chloride 108 H (98-107) mmol/L BUN 31 H (9-20) mg/dL Glucose 115 H (74-99) mg/dL POC Glucose (mg/dL) 103 H 112 H (75-99) mg/dL 07/26/20 07/26/20 07/26/20 Range/Units 05:00 05:58 09:58 RBC 3.60 L (4.30-5.90) m/uL Hgb 9.6 L (13.0-17.5) gm/dL Hct 31.7 L (39.0-53.0) % MCHC 30.2 L (31.0-37.0) g/dL ABG pO2 110 H (83-108) mmHg ABG HCO3 26 H (21-25) mmol/L ABG Total CO2 27 H 26 H (19-24) mmol/L ABG O2 Saturation 99.4 H 98.2 H (94-97) % Chloride (98-107) mmol/L BUN (9-20) mg/dL Glucose (74-99) mg/dL POC Glucose (mg/dL) (75-99) mg/dL Assessment and Plan Assessment: * Nonconvulsive, partial status epilepticus, now resolved based upon clinical examination and EEG. * Multiple sclerosis, advanced stage, nonverbal state. * Aspiration pneumonia, ventilator-dependent respiratory failure * Neurogenic bladder * Protein calorie malnutrition Plan: * Repeat EEG 07/23/20 revealed much improvement in the periodic lateralized epileptiform activity over the right hemispheric region. Patient still has interictal epileptiform activity noted in the right hemispheric region, but not continuous as was yesterday. Clinically patient is not showing any seizure activity. * I personally saw the patient on the 04/14/2020 and my examination he was unresponsive, as well as that the patient is known to the nursing staff upon seen him in March and she notified me that this is his baseline. Therefore I don't feel any need to transfer the patient at this moment. We'll get a repeat EEG tomorrow if the the patient is not transferred to a different facility. * Continue Keppra to 1000 mg twice a day, Vimpat 150 mg twice a day and Tegretol 200 mg twice a day. * Patient's Tegretol level is 3.7 (4-12) and Keppra level is 7.5(3-60). Patient's dose of Tegretol and Keppra has been increased as of yesterday. * We'll continue to monitor Time with Patient: Less than 30
[2020-07-26 23:59] LABS: Glucose,Whole Blood 103 mg/dL (75-99)
[2020-07-27] MEDS: PIPERACILLIN-TAZOBACTAM 3.375 GM in SODIUM CHLORIDE 0.9% 100 ML IVPB SCH ×2 (00:10→09:29)
[2020-07-27] MEDS: IPRATROPIUM-ALBUTEROL 3 ML NEB INHALATION SCH ×3 (03:24→10:52)
[2020-07-27 05:00] LABS: Basophils # (A) 0.1 k/uL (0-0.2); Basophils % (A) 1 %; Eosinophils # (A) 0.7 k/uL (0-0.7); Eosinophils % (A) 7 %; HCT 32.7 % (39.0-53.0); HGB 10.1 gm/dL (13.0-17.5); Hypochromasia Slight; Lymphocytes # (A) 1.3 k/uL (1.0-4.8); Lymphocytes % (A) 14 %; MCH 27.6 pg (25.0-35.0); MCHC 30.8 g/dL (31.0-37.0); MCV 89.5 fL (80.0-100.0); Mean Platelet Volume 9.1; Monocytes # (A) 0.6 k/uL (0-1.0); Monocytes % (A) 7 %; Neutrophils # (A) 6.9 k/uL (1.3-7.7); Neutrophils % (A) 70 %; Platelet Count 374 k/uL (150-450); RBC 3.66 m/uL (4.30-5.90); RDW 15.8 % (11.5-15.5); WBC 9.8 k/uL (3.8-10.6)
[2020-07-27 05:17] LABS: Calcium 8.7 mg/dL (8.4-10.2); Total Bilirubin 0.2 mg/dL (0.2-1.3); Total Protein 6.8 g/dL (6.3-8.2)
[2020-07-27 06:25] LABS: Glucose,Whole Blood 116 mg/dL (75-99)
[2020-07-27] MEDS: INSULIN ASPART (NovoLOG) 100 UNIT/ML VIAL SQ SCH ×2 (06:27→11:53)
[2020-07-27] MEDS: METOCLOPRAMIDE 5 MG/ML 2 ML VIAL IVP SCH ×2 (06:29→11:53)
[2020-07-27] MEDS: BACLOFEN 10 MG TAB PEG/G-TUBE SCH (06:29)
--- NOTE | 2020-07-27 06:48 | XR ---
EXAMINATION TYPE: XR chest 1V portable DATE OF EXAM: 07/27/2020 CLINICAL HISTORY: Difficulty breathing progress study. TECHNIQUE: Single AP portable semiupright view of the chest is obtained. COMPARISON: Chest x-ray from one day earlier and older studies. FINDINGS: Interval extubation with removal of endotracheal tube. Stable left sided internal jugular central venous catheter and right-sided PICC line. Improved visualization of right lower lung masslik e consolidation due to increased inspiration on current study. Background chronic parenchymal changes bilaterally with some additional patchy bibasilar linear scarring and/or atelectasis. Cardiac silhou ette size is stable and upper limits of normal. Mild diffuse tracheal dilatation redemonstrated. Old fracture deformity posterior lateral left fourth rib redemonstrated. IMPRESSION: Interval extubation. Improved inspiration. Chronic changes with better visualization of r ight lower lobe masslike consolidation or possible rounded pneumonia
[2020-07-27] MEDS ORDERED: FUROSEMIDE 40 MG TAB PO SCH (09:15)
[2020-07-27] MEDS: ASPIRIN 81 MG PEG/G-TUBE SCH (09:29)
[2020-07-27] MEDS: METOPROLOL TARTRATE 50 MG TAB PEG/G-TUBE SCH (09:30)
[2020-07-27] MEDS: HEPARIN SODIUM,PORCINE 5,000 UNIT/ML 1 ML VIAL SQ SCH (09:30)
[2020-07-27] MEDS: carBAMazepine 200 MG TAB PEG/G-TUBE SCH (09:30)
[2020-07-27] MEDS: FAMOTIDINE 20 MG/2 ML VIAL IV SCH (09:30)
[2020-07-27] MEDS: LACOSAMIDE 150 MG TABLET PEG/G-TUBE SCH (09:33)
[2020-07-27 12:04] LABS: Glucose,Whole Blood 136 mg/dL (75-99)
--- NOTE | 2020-07-27 12:36 | P.DS ---
Providers Date of admission: 07/16/20 12:27 Attending physician: Chris Pugh Consults: 07/16/20 12:27 Consult Physician Routine Consulting Provider: [facility] Consult Reason/Comments: Acute pulmonary edema Do you want consulting provider notified?: Yes 07/16/20 14:27 Consult Physician Urgent Consulting Provider: Sonal Farah Consult Reason/Comments: fever , possible pna Do you want consulting provider notified?: Yes 07/21/20 01:29 Consult Physician Stat Consulting Provider: Brenden Hawkins Consult Reason/Comments: ateam, low spo2 Do you want consulting provider notified?: Yes 07/22/20 11:45 Consult Physician Stat Consulting Provider: Lacie Blount Consult Reason/Comments: nonconvulsive seizures Do you want consulting provider notified?: Yes Primary care physician: [facility] Course: 70-year-old the male with history of multiple sclerosis 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 Patient is mostly nonverbal but does usually understands conversations. Patient is still lethargic. Patient has a PEG PEG tube in place. There was a some epileptiform focus on the EEG because of which the patient probably will need continuous she is monitoring because of which patient will be transferred to [facility] for that reason. Patient is presently on Tegretol and Keppra. Neurology and pulmonology following the patient. Patient is presently on Zosyn. Sputum cultures are showing Corynebacterium striatum and pseudomonas aeruginosa disorder versus pansensitive. Sensitive to ciprofloxacin. 07/27/2020 The patient doesn't have any significant change in his clinical condition patient overall prognosis is extremely poor patient has contractured is and his functionality is extremely poor. Patient is definitely high risk for readmission. There is nothing much else we're offering here in the hospital patient will be discharged to subacute rehabitation today. Pulmonology recommended Zosyn for 4 more days patient will be discharged on the Zosyn. Patient was evaluated by neurology and the patient will undergo repeat EEG today. Any aggressive care on this patient is futile care but sister who is medical POA wanted everything to be done for the patient. PHYSICAL EXAMINATION: GENERAL: Patient is alert and able to assess his orientation contractures HEENT: Pupils are round and equally reacting to light. EOMI. No scleral icterus. No conjunctival pallor. Normocephalic, atraumatic. No pharyngeal erythema. No thyromegaly. CARDIOVASCULAR: S1 and S2 present. No murmurs, rubs, or gallops. PULMONARY: Chest is clear to auscultation, no wheezing or crackles. ABDOMEN: Soft, nontender, nondistended, normoactive bowel sounds. No palpable organomegaly. MUSCULOSKELETAL: No joint swelling or deformity. EXTREMITIES: No cyanosis, clubbing, or pedal edema. NEUROLOGICAL: Patient has significant contractures. SKIN: No rashes. Assessment and Plan Plan: -Acute hypoxic respiratory failure secondary to aspiration pneumonia: Patient was extubated yesterday. Patient will be discharged to subacute rehabilitation on Zosyn. Patient has multiple aspirations in the past -Acute metabolic encephalopathy from sepsis which improved -Multiple sclerosis with significant cognitive impairment. -Moderate protein calorie malnutrition patient has a PEG tube in place -Possible seizures with epileptiform focus patient will undergo EGD today patient is on multiple antiseizure medications will be discharged on the same medications. -History of DVT in the past -Hypotension -Neurogenic bladder for which patient is a full Which is chronic. Patient has extremely poor functionality overall, bedbound with contractures. Plan - Discharge Summary Discharge Rx Participant: No New Discharge Prescriptions: New levETIRAcetam [Keppra] 1,000 mg PO Q12HR tab carBAMazepine [TEGretol] 200 mg PEG/G-TUBE Q12HR tab Continue Cholecalciferol [Vitamin D3 (25 Mcg = 1000 Iu)] 1,000 unit PEG/G-TUBE DAILY Docusate Oral Soln [Colace Oral Soln] 200 mg PEG/G-TUBE Q12H PRN PRN Reason: Constipation Amantadine 50mg/5ml 100 mg PEG/G-TUBE Q12H guaiFENesin [guaiFENesin Oral Solution] 200 mg PEG/G-TUBE Q6H PRN PRN Reason: Cough Acetaminophen Oral Susp [Tylenol] 320 mg PEG/G-TUBE Q6H PRN PRN Reason: Fever And/ Or Pain Omeprazole Magnesium [PriLOSEC Oral Susp] 20 mg PEG/G-TUBE DAILY Cranberry Fruit Extract [Cranberry] 500 mg PEG/G-TUBE Q12H Metoprolol Tartrate [Lopressor] 75 mg PEG/G-TUBE BID@0900,2100 polyethylene glycoL 3350 [Miralax] 17 gm PEG/G-TUBE HS PRN PRN Reason: Constipation Oxybutynin Chloride [Ditropan Oral Soln] 5 mg PEG/G-TUBE TID@0600,1400,2200 Ipratropium-Albuterol Nebulize [Duoneb 0.5 mg-3 mg/3 ml Soln] 3 ml INHALATION RT-QID PRN PRN Reason: Wheezing Albuterol Sulfate [Proair Hfa] 2 puff INHALATION RT-Q4H PRN PRN Reason: Shortness Of Breath Aspirin 81 mg PEG/G-TUBE DAILY chew Lacosamide [Vimpat] 150 mg PEG/G-TUBE BID@0900,2100 Baclofen [Lioresal] 10 mg PEG/G-TUBE TID@0600,1400,2200 levETIRAcetam [levETIRAcetam Oral Soln] 200 mg PEG/G-TUBE BID@0900,2100 Hydrocerin Cream 1 applic TOPICAL BID@0900,2100 Pulmocare 1.5 1,105 ml PEG/G-TUBE DIRECTED Vancomycin 1,500 mg IV Q24HR Piperacillin-Tazobactam [Zosyn] 3.375 gm IVPB TID@0600,1400,2200 #12 vial Discontinued carBAMazepine [carBAMazepine Oral Susp] 100 mg PEG/G-TUBE Q12H Discharge Medication List Amantadine 50mg/5ml 100 mg PEG/G-TUBE Q12H 12/28/17 [History] Cholecalciferol [Vitamin D3 (25 Mcg = 1000 Iu)] 1,000 unit PEG/G-TUBE DAILY 12/28/17 [History] Docusate Oral Soln [Colace Oral Soln] 200 mg PEG/G-TUBE Q12H PRN 12/28/17 [History] guaiFENesin [guaiFENesin Oral Solution] 200 mg PEG/G-TUBE Q6H PRN 12/28/17 [History] Acetaminophen Oral Susp [Tylenol] 320 mg PEG/G-TUBE Q6H PRN 01/26/19 [History] Omeprazole Magnesium [PriLOSEC Oral Susp] 20 mg PEG/G-TUBE DAILY 01/26/19 [History] Cranberry Fruit Extract [Cranberry] 500 mg PEG/G-TUBE Q12H 06/03/19 [History] Metoprolol Tartrate [Lopressor] 75 mg PEG/G-TUBE BID@0900,2100 07/29/19 [History] Oxybutynin Chloride [Ditropan Oral Soln] 5 mg PEG/G-TUBE TID@0600,1400,2200 09/08/19 [History] polyethylene glycoL 3350 [Miralax] 17 gm PEG/G-TUBE HS PRN 09/08/19 [History] Ipratropium-Albuterol Nebulize [Duoneb 0.5 mg-3 mg/3 ml Soln] 3 ml INHALATION RT-QID PRN 12/16/19 [History] Albuterol Sulfate [Proair Hfa] 2 puff INHALATION RT-Q4H PRN 04/14/20 [History] Aspirin 81 mg PEG/G-TUBE DAILY chew 04/15/20 [Rx] Baclofen [Lioresal] 10 mg PEG/G-TUBE TID@0600,1400,2200 07/16/20 [History] Hydrocerin Cream 1 applic TOPICAL BID@0900,209907/16/20 [History] Lacosamide [Vimpat] 150 mg PEG/G-TUBE BID@0900,209907/16/20 [History] Pulmocare 1.5 1,105 ml PEG/G-TUBE DIRECTED 07/16/20 [History] Vancomycin 1,500 mg IV Q24HR 07/16/20 [History] levETIRAcetam [levETIRAcetam Oral Soln] 200 mg PEG/G-TUBE BID@0900,209907/16/20 [History] Piperacillin-Tazobactam [Zosyn] 3.375 gm IVPB TID@0600,1400,2200 #12 vial 07/27/20 [Rx] carBAMazepine [TEGretol] 200 mg PEG/G-TUBE Q12HR tab 07/27/20 [Rx] levETIRAcetam [Keppra] 1,000 mg PO Q12HR tab 07/27/20 [Rx] Follow up Appointment(s)/Referral(s): Matteo Hernandez MD [Primary Care Provider] - 3 Days Katie Peres [NON-STAFF] - As Needed Discharge Disposition: TRANSFER TO SNF/ECF
--- NOTE | 2020-07-27 13:27 | P.PN ---
Subjective Progress Note Date: 07/27/20 This is a 60-year-old gentleman with a known history of multiple sclerosis, PEG tube placement, recurrent urinary tract infections, sepsis, hypertension, severe cognitive impairment, bowel and urinary incontinence, neurogenic bladder, previous pneumonias. He had recently been in [facility] and on the mechanical vent. He was discharged to an extended care facility for 1 day and then was brought back to our emergency room here on 07/16/2020. He was admitted for acute pulmonary edema to the selective care unit. Earlier this morning and A team was called as he developed increasing shortness of breath, tachycardia, tachypnea he was subsequently intubated and transferred to the intensive care unit. We are seeing him today in consultation. He is on the mechanical ventilator at assist control rate of 20, tidal volume 450, FiO2 100% and a PEEP of 10. Earlier blood gases revealed a pO2 of 46, pCO2 of 35 minutes pH is 7.45. He is on the Prop at 30 mcg/kg/m. Receiving TPN for nutrition currently at 30 MLS per hour with a goal of 75. 0.9#and 40 ML's per hour. Chest x-ray reveals persistent right middle lobe focal airspace density. Blood culture and sputum cultures pending. White count 17.6. Hemoglobin 13.0. Sodium 146. Potassium 3.8. Creatinine 1.23. He is currently on Lasix 40 mg every 12 hours, heparin for DVT prophylaxis, Pepcid for GI prophylaxis. He is on Keppra and Vimpat for his history of seizures. Antibiotics in the form of Zosyn. The patient is seen today 07/22/2020 in follow-up in the intensive care unit. He remains intubated on the mechanical ventilator with assist control of 20, tidal volume 450, FiO2 40% and a PEEP of 5. Her blood gases reveal pO2 165, CO2 33, pH 7.48. He remains sedated on propofol at 30 mcg/kg/m. Receiving nutrition via TPN currently at 75 ML's per hour with lipids. 0.9 normal saline at 40 ML's per hour. Chest x-ray reveals persistent right basilar pneumonic consolidation. No new infiltrates. No significant change from previous. Blood culture reveals no growth. Sputum culture pending. White count 12.4. Hemoglo bin 9.0. Sodium 142. Potassium 3.7. Creatinine 1.28. Continued on IV diuretics. Antibiotics in the form of Zosyn. The patient is seen today 07/23/2020 in follow-up in the intensive care unit. Herbie garnett remains on mechanical ventilator. Assist control of rate of 20, tidal volume 450, FiO2 25%, PEEP of 5. Morning blood gases reveal a pO2 of 99, pCO2 34, pH 7.48. He remains off sedation. Remains unresponsive. He is being nourished with TPN at 75 ML's per hour along with vital AF 1.2 with trickle feeds at 10 MLS per hour with a goal of 45. EEG reveals a nonconvulsive status. Neurology is on the case. Blood cultures reveal no growth. Sputum culture revealing a preliminary of pseudomonas species. White count 8.0. Hemoglobin 8.8. Sodium 139. Potassium 3.7. Creatinine 1.08. He remains on IV diuretics 40 mg every 12 hours, bronchodilators, antibiotics in the form of Zosyn. Chest x-ray continues to show prominent focal ovoid opacity in the right mid to lower lung. Suspect pseudotumor versus rounded atelectasis The patient is seen today 07/25/2020 in follow-up in the intensive care unit. He is currently resting in bed. He does open his eyes spontaneously. No other changes neurologically. He remains intubated on mechanical ventilator. Current settings assist-control rate of 20, tidal volume 450, FiO2 25%, PEEP of 5. Morning blood gases reveal a P O2 of 108, pCO2 35, pH 7.47. He remains on 0.9 normal saline at 40 ML's per hour. Vital AF 1.245 ML's per hour which is goal now. Sputum cultures positive for pseudomonas aeruginosa and corynebacterium striatum. Blood culture reveals no growth. White count 7.7. Hemoglobin 9.3. Sodium 137. Potassium 4.1. Creatinine 0.95. He remains on bronchodilators, IV diuretics, antibiotics in the form of Zosyn, heparin for DVT prophylaxis, Pepcid for GI prophylaxis. Chest x-ray continues to show a stable focal right lower lung masslike consolidation/pseudotumor. On 07/26/2020, the patient is off sedation and is noted to be interactive opening up his eyes and looking around and grimacing to painful stimulation. He is not following any commands. He had a adequate cough abdominal bleeding the orotracheal tube. In terms of his mechanical ventilation, the patient remains on assist control mode at the rate of 20 with a tidal volume of 450 and PEEP of 5 with an FiO2 of 25%. Chest x-ray shows no acute abnormalities. He has a right lower lobe pneumonia which is improving. The patient is on IV fluids at 20 mL an hour. He is receiving enteral feeding for nutritional support with vital high protein at the rate of 45 mL an hour. His last EEG showed some questionable frontal lobe seizure activity. Clinically however the patient looks quite alert and awake. The patient based on this was switched to a pressure support mode of ventilation with a pressure support of 5 and a PEEP of 5. After doing this pressure support trial for a total of 45 minutes. Blood gases was done and the patient a pH of 7.39 with a pCO2 of 41 and pO2 of 97 and the patient was breathing comfortably. At that point I decided to extubate the patient on nasal cannula and currently is on 2 L about 2 by nasal cannula. As mentioned, the chest x-ray showed a mass area of consolidation in the right lower lobe projecting behind the dome of the right hemidiaphragm and the patient is currently covered with IV Zosyn. No seizure activity has been noted and the patient remains on a combination of Vimpat and. No other issues for now. He has a PEG tube for enteral feeding and nutritional support. 07/27/2020, the patient remains extubated on 2 L of oxygen by nasal cannula. He is nonverbal. He doesn't follow any commands. He is not communicating at this point in time. Note that the patient is post ventilator-dependent respiratory failure due to an aspiration pneumonia. Chest x-ray still showing what seems to be a pseudo tumor in the right lower lobe versus around pneumonia. The patient is still on IV Zosyn completing a course of antibiotics regarding his pseudomonal infection of the lung. Afebrile. Cough is weak this morning. Tolerating enteral feeding for nutritional support. No seizure activity has bee n noted and the patient continues to be on a combination of Vimpat and Keppra. No other significant events. No signs of any respiratory distress. The patient was supposed to get transferred to [facility] and this current declined by the receiving hospital. The patient remains extubated. No other major issues for now. Active site is dry clean and intact. He was receiving IV Lasix and this will be cut down to oral Lasix once a day. He remains in a negative fluid balance. Objective - Vital Signs Vital signs: Vital Signs Temp 98.4 F 07/27/20 08:00 Pulse 86 07/27/20 11:01 Resp 22 07/27/20 11:00 BP 141/94 07/27/20 11:00 Pulse Ox 100 07/27/20 11:00 Intake & Output 07/26/20 07/27/20 07/27/20 18:59 06:59 18:59 Intake Total 1505 1485 955 Output Total 2450 1485 285 Balance -945 0 670 Weight 68.9 kg 67.5 kg Intake: IV 980 525 400 Piperacillin-Tazobactam 3 200 125 100 .375 gm In Sodium Chloride 0.9% 100 ml @ 25 mls/hr IVPB Q8HR [facility] Rx# :[id number] Potassium Chloride 20 meq 200 In Water For Injection 1 100ml.bag @ 50 mls/hr IVPB Q2H [facility] Rx#: [id number] Sodium Chloride 0.9% 1, 480 400 200 000 ml @ 40 mls/hr IV . Q24H [facility] Rx#:[id number] levETIRAcetam IV 1,000 mg 100 100 In Saline 1 100ml.bag @ 400 mls/hr IVPB Q12HR [facility] Rx#:[id number] Tube Feeding 495 900 525 Other 30 60 30 Output: Urine 2450 1485 285 Other: Voiding Method Indwelling Catheter Indwelling Catheter Indwelling Catheter ABP, PAP, CO, CI - Last Documented Arterial Blood Pressure 118/59 - Exam GENERAL EXAM: The patient is calm and comfortable on 2 L oxygen by nasal cannula HEAD: Normocephalic. EYES: Sluggish reaction of pupils, equal size. NOSE: Clear with pink turbinates. THROAT: Oral endotracheal and gastric tube secured in place. No erythema or exudates. NECK: No masses, no JVD. CHEST: No chest wall deformity. LUNGS: Equal air entry with bilateral scattered rhonchi more so on the right. The patient has been noted to have adequate cough. CVS: S1 and S2 normal with no audible murmur, regular rhythm. ABDOMEN: PEG tube exit site clean and dry. No hepatosplenomegaly, normal bowel sounds, no guarding or rigidity. SPINE: No scoliosis or deformity SKIN: No rashes CENTRAL NERVOUS SYSTEM: No focal deficits, tone is normal in all 4 extremities. EXTREMITIES: Contractures. There is no peripheral edema. No clubbing, no cyanosis. Peripheral pulses are intact. - Labs CBC & Chem 7: 07/27/20 04:45 07/27/20 04:45 Labs: Abnormal Lab Results - Last 24 Hours (Table) 07/26/20 07/27/20 07/27/20 Range/Units 23:46 04:45 04:45 RBC 3.66 L (4.30-5.90) m/uL Hgb 10.1 L (13.0-17.5) gm/dL Hct 32.7 L (39.0-53.0) % MCHC 30.8 L (31.0-37.0) g/dL RDW 15.8 H (11.5-15.5) % Chloride 109 H (98-107) mmol/L BUN 34 H (9-20) mg/dL Glucose 122 H (74-99) mg/dL POC Glucose (mg/dL) 103 H (75-99) mg/dL Albumin 3.0 L (3.5-5.0) g/dL 07/27/20 07/27/20 Range/Units 06:24 12:03 RBC (4.30-5.90) m/uL Hgb (13.0-17.5) gm/dL Hct (39.0-53.0) % MCHC (31.0-37.0) g/dL RDW (11.5-15.5) % Chloride (98-107) mmol/L BUN (9-20) mg/dL Glucose (74-99) mg/dL POC Glucose (mg/dL) 116 H 136 H (75-99) mg/dL Albumin (3.5-5.0) g/dL Assessment and Plan Plan: 1 Acute hypoxic respiratory failure secondary to aspiration pneumonia and fluid volume overload requiring intubation mechanical ventilatory support on 07/21/2020. Sputum culture with preliminary pseudomonas aeruginosa and corynebacterium striatum. Currently on Zosyn. The patient was extubated on 07/26/2020 and the chest x-ray still showing a pseudotumor, fluid filled fissure versus around pneumonia in the right lower lobe. He is on 2 L of oxygen. The patient has a weak cough and poor ability to handle her respiratory secretions yet for now. Remains stable. We understand that he did a high risk of developing respiratory failure in the future due to significant cognitive impairments. 2 Metabolic encephalopathy , multifactorial 3 History of multiple sclerosis with significant cognitive impairement 4 Moderate to severe protein calorie malnutrition secondary to above him a status post PEG tube placement, the patient is been tolerating enteral feeding for nutritional support 5 History of seizures, EEG from 07/22/2020 reveals continuous focal slowing with periodic lateralized epileptiform discharges involving the right hemispheric region. May suggest nonconvulsive, partial status epilepticus. Background slowing consistent with encephalopathy. The patient is currently on a combination of Vimpat and Keppra 6 Multiple admissions for aspiration pneumonia and urinary tract infections 7 History of DVT 8 History of GERD 9 History of hypertension 10 Osteoarthritis 11 History of neurogenic bladder 12 Poor overall functional performance based on the above-mentioned multiple comorbidities. Plan Keep the patient on oxygen with nasal cannula 2 L Pulmonary toileting Aspiration precautions enteral feeding for nutritional support Aspiration precautions Continue IV Zosyn, we'll complete a 14 day course Monitor chest x-ray and monitor the right lower lobe around pneumonia/pseudot umor Continue Keppra Vimpat Continue supportive care will continue to follow. Long-term prognosis poor. The family still looking to transfer this patient to [facility] at a later stage. This seems to be getting declined by the receiving hospital. We will with the spring encaser. I think the patient can be transferred out of the intensive care unit today
[2020-07-27 14:26] VITALS: BP 140/79; PULSE 87; RESP 30; TEMP 97.6
--- NOTE | 2020-07-27 15:14 | EEG ---
ELECTROENCEPHALOGRAM REPORT EEG REPORT: DATE OF SERVICE: 07/27/2020 CLINICAL HISTORY: This is a 60-year-old gentleman with history of seizure as well as multiple sclerosis that was admitted to the Emergency Department on 07/16/2020 for altered mental status. He was recently at an outside hospital for seizure. This video EEG was obtained to evaluate for seizure and epileptiform activity. RELEVANT MEDICATION: Patient is on Keppra, Vimpat and Tegretol. EEG TYPE: A routine 21 channel was performed with video using the 10-20 electrode placement system. DESCRIPTION: Wakefulness and drowsiness are obtained. During wakefulness, there is a posterior dominant rhythm of low voltage of 6-7 hertz that is poorly modulated, poorly sustained, that is better seen over the right than the left slightly. Also, the background consists of diffuse delta slowing over the bilateral hemisphere. During brief drowsiness, there is slowing and attenuation of the background. There is no physiological stage 2 sleep. There is minimal myogenic artifact seen over bilateral hemisphere. INTERICTAL AND ICTAL: None. ACTIVATION PROCEDURE: Photic stimulation did not evoke a posterior driving response. Hyperventilation is not performed because of the patient's clinical history. CLINICAL INTERPRETATION: This is an abnormal routine EEG study. The background slowing is suggestive of mild to moderate encephalopathy of unspecified etiology. There are no focal slowing, epileptiform discharges, or seizure activity during the study. Compared to the previous reports of the recent EEG, it seems this study is improved compared to the previous ones. Clinical correlation is recommended. CHARLOTTE / ARMANDON: [id number] / JOSE MIGUEL
--- NOTE | 2020-07-27 16:02 | P.PN ---
Subjective Progress Note Date: 07/27/20 The patient was seen at bedside and no seizure-like activity per the patient nurse. Patient was supposed to be transferred to [facility] but was rejected. Objective - Vital Signs Vital signs: Vital Signs Temp 97.6 F 07/27/20 12:00 Pulse 87 07/27/20 14:00 Resp 30 H 07/27/20 14:00 BP 140/79 07/27/20 14:00 Pulse Ox 98 07/27/20 14:00 Intake & Output 07/26/20 07/27/20 07/27/20 18:59 06:59 18:59 Intake Total 1505 1485 1145 Output Total 2450 1485 625 Balance -945 0 520 Weight 68.9 kg 67.5 kg Intake: IV 980 525 440 Piperacillin-Tazobactam 3 200 125 100 .375 gm In Sodium Chloride 0.9% 100 ml @ 25 mls/hr IVPB Q8HR [facility] Rx# :[id number] Potassium Chloride 20 meq 200 In Water For Injection 1 100ml.bag @ 50 mls/hr IVPB Q2H [facility] Rx#: [id number] Sodium Chloride 0.9% 1, 480 400 240 000 ml @ 40 mls/hr IV . Q24H [facility] Rx#:[id number] levETIRAcetam IV 1,000 mg 100 100 In Saline 1 100ml.bag @ 400 mls/hr IVPB Q12HR [facility] Rx#:[id number] Tube Feeding 495 900 675 Other 30 60 30 Output: Urine 2450 1485 625 Other: Voiding Method Indwelling Catheter Indwelling Catheter Indwelling Catheter ABP, PAP, CO, CI - Last Documented Arterial Blood Pressure 118/59 - Exam Patient exam is limited given his condition: Higher mental function: Patient is awake alert and nonverbal (per medical record the seems to be baseline). Does not follow commands. Cranial nerves: The pupils are round, equal and reactive to light. The pupils are round tremulous bilaterally. Visual prater are full to threat throughout. No facial weakness noted bilaterally. Motor Unable to assess because of his condition. The strength unable to assess. The patient has decreased tone in the bilateral upper extremity and increased tone in the bilateral lower extremity which seems consistent with the examination on 2019 (gets Botox). Reflexes is 1 positive throughout. Plantar is mute bilaterally. - Labs CBC & Chem 7: 07/27/20 04:45 07/27/20 04:45 Labs: Abnormal Lab Results - Last 24 Hours (Table) 07/26/20 07/27/20 07/27/20 Range/Units 23:46 04:45 04:45 RBC 3.66 L (4.30-5.90) m/uL Hgb 10.1 L (13.0-17.5) gm/dL Hct 32.7 L (39.0-53.0) % MCHC 30.8 L (31.0-37.0) g/dL RDW 15.8 H (11.5-15.5) % Chloride 109 H (98-107) mmol/L BUN 34 H (9-20) mg/dL Glucose 122 H (74-99) mg/dL POC Glucose (mg/dL) 103 H (75-99) mg/dL Albumin 3.0 L (3.5-5.0) g/dL 07/27/20 07/27/20 Range/Units 06:24 12:03 RBC (4.30-5.90) m/uL Hgb (13.0-17.5) gm/dL Hct (39.0-53.0) % MCHC (31.0-37.0) g/dL RDW (11.5-15.5) % Chloride (98-107) mmol/L BUN (9-20) mg/dL Glucose (74-99) mg/dL POC Glucose (mg/dL) 116 H 136 H (75-99) mg/dL Albumin (3.5-5.0) g/dL Assessment and Plan Assessment: * Nonconvulsive, partial status epilepticus, now resolved based upon clinical examination and EEG. * Multiple sclerosis, advanced stage, nonverbal state. * Aspiration pneumonia, ventilator-dependent respiratory failure * Neurogenic bladder * Protein calorie malnutrition Plan: * Repeat EEG 07/23/20 "revealed much improvement in the periodic lateralized epileptiform activity over the right hemispheric region. Patient still has interictal epileptiform activity noted in the right hemispheric region, but not continuous as was yesterday. Clinically patient is not showing any seizure activity". * Repeat EEG on 07/27/2020: The background slowing is suggestive of mild to moderate encephalopathy of nonspecific etiology. There are no focal slowing, epidural performed discharges or seizure activity during the study. Compared to previous EEG reports this EEG as seems improved compared to the prior ones. * I personally saw the patient on the 04/14/2020 and my examination he was unresponsive, as well as that the patient is known to the nursing staff (who stated she know the patient well) upon seen him in March and she notified me that this is his baseline. Therefore I don't feel any need to transfer the patient. * Continue Keppra to 1000 mg twice a day, Vimpat 150 mg twice a day and Tegretol 200 mg twice a day. Hopefully down the line that we'll attempt to place him on two medication instead of three by maximizing on the two medications. * From Neurology perspective the patient does not need to be transferred to another facility for long-term EEG. EEG as seems the improved compared to previous reports. * Patient will be discharged later today to [facility]. * Patient needs to follow-up with a neurologist as an outpatient. Jamison Hawkins M.D. Neuro-hospitalist Time with Patient: Less than 30
[2020-07-27] MEDS ORDERED: levETIRAcetam 500 MG TAB PO SCH (21:00)
== END 2020-07-27 14:34 | DRG 870 ==
LOC: EC 10:18 → 3SCARD 12:27 → 2SICU 07-21 01:39
PROVIDERS: ADMIT Hospitalist; ATTEND Hospitalist
PROC: 3E0G76Z Introduction of Nutritional Substance into Upper GI, Via Natural or Artificial Opening (ICD-10-PCS; 2020-07-16)
PROC: 3E0336Z Introduction of Nutritional Substance into Peripheral Vein, Percutaneous Approach (ICD-10-PCS; 2020-07-20)
PROC: 0BH17EZ Insertion of Endotracheal Airway into Trachea, Via Natural or Artificial Opening (ICD-10-PCS; principal; 2020-07-21)
PROC: 5A1955Z Respiratory Ventilation, Greater than 96 Consecutive Hours (ICD-10-PCS; principal; 2020-07-21)
PROC: 04HY32Z Insertion of Monitoring Device into Lower Artery, Percutaneous Approach (ICD-10-PCS; principal; 2020-07-21)
PROC: 4A133J1 Monitoring of Arterial Pulse, Peripheral, Percutaneous Approach (ICD-10-PCS; principal; 2020-07-21)
PROC: 0D9670Z Drainage of Stomach with Drainage Device, Via Natural or Artificial Opening (ICD-10-PCS; principal; 2020-07-21)
PROC: 02H633Z Insertion of Infusion Device into Right Atrium, Percutaneous Approach (ICD-10-PCS; principal; 2020-07-21)
PROC: 4A133B1 Monitoring of Arterial Pressure, Peripheral, Percutaneous Approach (ICD-10-PCS; principal; 2020-07-21)
DX: A41.9 Sepsis, unspecified organism (principal); J69.0 Pneumonitis due to inhalation of food and vomit; G93.41 Metabolic encephalopathy; J96.01 Acute respiratory failure with hypoxia; J15.1 Pneumonia due to Pseudomonas; E44.0 Moderate protein-calorie malnutrition; Z68.1 Body mass index [BMI] 19.9 or less, adult; G40.901 Epilepsy, unspecified, not intractable, with status epilepticus; L89.159 Pressure ulcer of sacral region, unspecified stage; G35 Multiple sclerosis; Z93.1 Gastrostomy status; R65.20 Severe sepsis without septic shock; I11.9 Hypertensive heart disease without heart failure; R13.10 Dysphagia, unspecified; I95.9 Hypotension, unspecified; Z20.828 Contact with and (suspected) exposure to other viral communicable diseases; G50.0 Trigeminal neuralgia; R47.1 Dysarthria and anarthria; N31.9 Neuromuscular dysfunction of bladder, unspecified; R15.9 Full incontinence of feces; K21.9 Gastro-esophageal reflux disease without esophagitis; F32.9 Major depressive disorder, single episode, unspecified; E87.70 Fluid overload, unspecified; D64.9 Anemia, unspecified; M24.50 Contracture, unspecified joint; R47.9 Unspecified speech disturbances; M19.91 Primary osteoarthritis, unspecified site; L65.9 Nonscarring hair loss, unspecified; R32 Unspecified urinary incontinence; F17.200 Nicotine dependence, unspecified, uncomplicated; Z79.82 Long term (current) use of aspirin; Z79.899 Other long term (current) drug therapy; Z87.01 Personal history of pneumonia (recurrent); Z86.14 Personal history of Methicillin resistant Staphylococcus aureus infection; Z86.19 Personal history of other infectious and parasitic diseases; Z86.718 Personal history of other venous thrombosis and embolism; Z87.39 Personal history of other diseases of the musculoskeletal system and connective tissue; Z87.448 Personal history of other diseases of urinary system; Z90.89 Acquired absence of other organs; Z87.440 Personal history of urinary (tract) infections; Z74.01 Bed confinement status; Z98.890 Other specified postprocedural states; Z88.1 Allergy status to other antibiotic agents; Z82.49 Family history of ischemic heart disease and other diseases of the circulatory system
CPT/HCPCS: 36415; 36600; 71045; 74021; 80048; 80053; 80156; 80177; 81001; 82040; 82330; 82805; 83036; 83605; 83735; 83880; 84100; 84132; 84145; 84478; 85025; 85027; 85610; 85730; 86140; 87040; 87070; 87077; 87186; 87205; 87635; 93005; 93306; 94002; 94003; 94640; 95816; 96365; 96375; 99285

== ENCOUNTER 2020-07-29 13:21 | Emergency (ER) | payer MEDICARE, OTHER ==
[2020-07-29] MEDS ORDERED: IPRATROPIUM-ALBUTEROL 3 ML NEB INHALATION STA (13:53)
--- NOTE | 2020-07-29 14:09 | ED ---
General Adult HPI - General Chief complaint: Shortness of Breath Stated complaint: sob Time Seen by Provider: 07/29/20 13:49 Source: patient, EMS, RN notes reviewed Mode of arrival: EMS Limitations: altered mental status - History of Present Illness Initial comments: This a 60-year-old male presents emergency Department with chief complaint of hypoxia. Patient was sent from half-way patient information is limited as patient is nonverbal, history of MS. Patient's has 24 7 care. Patient primary febrile, hypoxic recently discharged from the hospital 2 days ago. Patient was found to have a pulse ox of 86) on nonrebreather and which pulse ox increased. Patient has recurrent pneumonia infections, urinary tract infections. - Related Data Home Medications Medication Instructions Recorded Confirmed Amantadine 50mg/5ml 100 mg PEG/G-TUBE Q12H 12/28/17 07/16/20 Cholecalciferol [Vitamin D3 (25 1,000 unit PEG/G-TUBE DAILY 12/28/17 07/16/20 Mcg = 1000 Iu)] Docusate Oral Soln [Colace Oral 200 mg PEG/G-TUBE Q12H PRN 12/28/17 07/16/20 Soln] guaiFENesin [guaiFENesin Oral 200 mg PEG/G-TUBE Q6H PRN 12/28/17 07/16/20 Solution] Acetaminophen Oral Susp [Tylenol] 320 mg PEG/G-TUBE Q6H PRN 01/26/19 07/16/20 Omeprazole Magnesium [PriLOSEC 20 mg PEG/G-TUBE DAILY 01/26/19 07/16/20 Oral Susp] Cranberry Fruit Extract [Cranberry] 500 mg PEG/G-TUBE Q12H 06/03/19 07/16/20 Metoprolol Tartrate [Lopressor] 75 mg PEG/G-TUBE BID@0900,2100 07/29/19 07/16/20 Oxybutynin Chloride [Ditropan Oral 5 mg PEG/G-TUBE TID@0600,1400,2200 09/08/19 07/16/20 Soln] polyethylene glycoL 3350 [Miralax] 17 gm PEG/G-TUBE HS PRN 09/08/19 07/16/20 Ipratropium-Albuterol Nebulize 3 ml INHALATION RT-QID PRN 12/16/19 07/16/20 [Duoneb 0.5 mg-3 mg/3 ml Soln] Albuterol Sulfate [Proair Hfa] 2 puff INHALATION RT-Q4H PRN 04/14/20 07/16/20 Baclofen [Lioresal] 10 mg PEG/G-TUBE TID@0600,1400,2200 07/16/20 07/16/20 Hydrocerin Cream 1 applic TOPICAL BID@0900,2100 07/16/20 07/16/20 Lacosamide [Vimpat] 150 mg PEG/G-TUBE BID@0900,2100 07/16/20 07/16/20 Pulmocare 1.5 1,105 ml PEG/G-TUBE DIRECTED 07/16/20 07/16/20 Vancomycin 1,500 mg IV Q24HR 07/16/20 07/16/20 levETIRAcetam [levETIRAcetam Oral 200 mg PEG/G-TUBE BID@0900,2100 07/16/20 07/16/20 Soln] Previous Rx's Medication Instructions Recorded Aspirin 81 mg PEG/G-TUBE DAILY chew 04/15/20 Piperacillin-Tazobactam [Zosyn] 3.375 gm IVPB TID@0600,1400,2200 07/27/20 #12 vial carBAMazepine [TEGretol] 200 mg PEG/G-TUBE Q12HR tab 07/27/20 levETIRAcetam [Keppra] 1,000 mg PO Q12HR tab 07/27/20 Ipratropium-Albuterol Nebulize 3 ml INHALATION QID #1 box 07/29/20 [Duoneb 0.5 mg-3 mg/3 ml Soln] Allergies Allergy/AdvReac Type Severity Reaction Status Date / Time meropenem [From Merrem] Allergy Rash/Hives Verified 07/29/20 13:30 Review of Systems ROS Statement: Those systems with pertinent positive or pertinent negative responses have been documented in the HPI. ROS Other: All systems not noted in ROS Statement are negative. Past Medical History Past Medical History: Deep Vein Thrombosis (DVT), GERD/Reflux, Hypertension, Musculoskeletal Disorder, Neurologic Disorder, Pneumonia, Skin Disorder Additional Past Medical History / Comment(s): Pt recently hospitalized at [facility] for extensive stay with seizure/pneumonia/UTI with sepsis/respirtory failure/vented-Pt diagnosed with multiple sclerosis at the age of 20 yrs, cognitive impairment, sister states when he is feeling well he could speak a few words/nod head appropriately/give thumbs up/roll eyes but when ill is nonverbal, pt has dysphagia/NPO with peg tube, contractures, trigeminal neuralgia, dysarthria/anarthria/neurogenic bladder with IDC-UTIs/sepsis, multiple pneumonias, recent seizure-last one 07/03/20, incontinent of stool, pt has had decubitus ulcer coccyx-sister unsure of skin condition at this time, past anemia r/t heparin/epistaxiis which involved nasal packing/transfusions, DVT bilateral arms. History of Any Multi-Drug Resistant Organisms: ESBL, MRSA Date of last positivie culture/infection: 09/13/19-MRSA; 11/23/19 ESBL-E.coli MDRO Source:: Broch lavage-Mrsa; Urine -ESBL Past Surgical History: Tonsillectomy Additional Past Surgical History / Comment(s): Gastrostomy, peg tube, I&D coccyx decubitius, bilateral lasik eye surgery. Past Anesthesia/Blood Transfusion Reactions: No Reported Reaction Additional Past Anesthesia/Blood Transfusion Reaction / Comment(s): Pt has received blood in past without reaction. Past Psychological History: Depression Smoking Status: Never smoker - Past Family History Father Family Medical History: Myocardial Infarction (PA) Additional Family Medical History / Comment(s): Father is at the age of 86 yrs while on heparin/bled, he had a mild PA Mother Family Medical History: Hypertension, Myocardial Infarction (PA) Additional Family Medical History / Comment(s): Mother of a PA at the age of 73 yrs. General Exam Limitations: altered mental status General appearance: alert, in no apparent distress Head exam: Present: atraumatic, normocephalic, normal inspection Eye exam: Present: normal appearance, PERRL, EOMI. Absent: scleral icterus, conjunctival injection, periorbital swelling Neck exam: Present: normal inspection. Absent: tenderness, meningismus, lymphadenopathy Respiratory exam: Present: respiratory distress, wheezes, rhonchi. Absent: normal lung sounds bilaterally, rales, stridor Cardiovascular Exam: Present: regular rate, normal rhythm, normal heart sounds. Absent: systolic murmur, diastolic murmur, rubs, gallop, clicks exam: Present: other (Stein catheter) Extremities exam: Present: other (Patient has lower extremity boots on, patient is contracted) Neurological exam: Present: alert. Absent: oriented X3, CN II-XII intact Skin exam: Present: warm, dry, intact, normal color. Absent: rash Course Vital Signs 07/29/20 07/29/20 07/29/20 13:23 13:53 14:10 Temperature 99.9 F H Pulse Rate 98 97 Respiratory 24 20 Rate Blood Pressure 131/85 O2 Sat by Pulse 94 L Oximetry 07/29/20 07/29/20 07/29/20 14:25 14:30 15:30 Temperature 98.7 F Pulse Rate 95 99 96 Respiratory 18 18 Rate Blood Pressure 120/69 110/67 O2 Sat by Pulse 95 95 Oximetry - Reevaluation(s) Reevaluation #1: 07/29/20 16:02 Patient has persistent cough which has been ongoing. Patient was evaluated on oxygen and off oxygen patient does drop down to 92% though he is in no distress. Patient's pulse ox is improved when he coughs. He is currently being treated for infection. Medical Decision Making - Medical Decision Making 60-year-old male presented for cough congestion. I did thoroughly review of medical records and which patient sent to be transferred to [place] which was refused, hospitalist was had a long discussion with the sister who makes patient's medical care decisions. I had long discussion given patient's nonverbal, non-mobile health that he has a poor prognosis. Patient is in no signs of stress he is currently receiving Zosyn. Patient will be discharged back to subacute care with breathing treatments, supplemental oxygen. Patient is currently continuing treatment for aspiration pneumonia. - Lab Data Result diagrams: 07/29/20 14:17 07/29/20 14:17 Lab Results 07/29/20 07/29/20 07/29/20 Range/Units 14:17 14:17 14:17 WBC 13.3 H (3.8-10.6) k/uL RBC 3.84 L (4.30-5.90) m/uL Hgb 10.9 L (13.0-17.5) gm/dL Hct 34.2 L (39.0-53.0) % MCV 88.9 (80.0-100.0) fL MCH 28.3 (25.0-35.0) pg MCHC 31.8 (31.0-37.0) g/dL RDW 15.9 H (11.5-15.5) % Plt Count 360 (150-450) k/uL Neutrophils % 84 % Lymphocytes % 7 % Monocytes % 5 % Eosinophils % 2 % Basophils % 1 % Neutrophils # 11.2 H (1.3-7.7) k/uL Lymphocytes # 0.9 L (1.0-4.8) k/uL Monocytes # 0.7 (0-1.0) k/uL Eosinophils # 0.3 (0-0.7) k/uL Basophils # 0.1 (0-0.2) k/uL Hypochromasia Slight PT 10.4 (9.0-12.0) sec INR 1.0 (<1.2) APTT 25.5 (22.0-30.0) sec Sodium (137-145) mmol/L Potassium (3.5-5.1) mmol/L Chloride (98-107) mmol/L Carbon Dioxide (22-30) mmol/L Anion Gap mmol/L BUN (9-20) mg/dL Creatinine (0.66-1.25) mg/dL Est GFR (CKD-EPI)AfAm (>60 ml/min/1.73 sqM) Est GFR (CKD-EPI)NonAf (>60 ml/min/1.73 sqM) Glucose (74-99) mg/dL Plasma Lactic Acid [place] (0.7-2.0) mmol/L Calcium (8.4-10.2) mg/dL Magnesium (1.6-2.3) mg/dL Total Bilirubin (0.2-1.3) mg/dL AST (17-59) U/L ALT (4-49) U/L Alkaline Phosphatase (38-126) U/L Troponin I (0.000-0.034) ng/mL NT-Pro-B Natriuret Pep pg/mL Total Protein (6.3-8.2) g/dL Albumin (3.5-5.0) g/dL Urine Color Yellow Urine Appearance Clear (Clear) Urine pH 7.0 (5.0-8.0) Ur Specific [place] 1.019 (1.001-1.035) Urine Protein Trace H (Negative) Urine Glucose (UA) Negative (Negative) Urine Ketones Negative (Negative) Urine Blood Negative (Negative) Urine Nitrite Negative (Negative) Urine Bilirubin Negative (Negative) Urine Urobilinogen <2.0 (<2.0) mg/dL Ur Leukocyte Esterase Negative (Negative) 07/29/20 07/29/20 07/29/20 Range/Units 14:17 14:17 14:17 WBC (3.8-10.6) k/uL RBC (4.30-5.90) m/uL Hgb (13.0-17.5) gm/dL Hct (39.0-53.0) % MCV (80.0-100.0) fL MCH (25.0-35.0) pg MCHC (31.0-37.0) g/dL RDW (11.5-15.5) % Plt Count (150-450) k/uL Neutrophils % % Lymphocytes % % Monocytes % % Eosinophils % % Basophils % % Neutrophils # (1.3-7.7) k/uL Lymphocytes # (1.0-4.8) k/uL Monocytes # (0-1.0) k/uL Eosinophils # (0-0.7) k/uL Basophils # (0-0.2) k/uL Hypochromasia PT (9.0-12.0) sec INR (<1.2) APTT (22.0-30.0) sec Sodium 138 (137-145) mmol/L Potassium 4.3 (3.5-5.1) mmol/L Chloride 108 H (98-107) mmol/L Carbon Dioxide 24 (22-30) mmol/L Anion Gap 6 mmol/L BUN 26 H (9-20) mg/dL Creatinine 0.83 (0.66-1.25) mg/dL Est GFR (CKD-EPI)AfAm >90 (>60 ml/min/1.73 sqM) Est GFR (CKD-EPI)NonAf >90 (>60 ml/min/1.73 sqM) Glucose 111 H (74-99) mg/dL Plasma Lactic Acid [place] 0.6 L (0.7-2.0) mmol/L Calcium 8.8 (8.4-10.2) mg/dL Magnesium 2.4 H (1.6-2.3) mg/dL Total Bilirubin 0.3 (0.2-1.3) mg/dL AST 20 (17-59) U/L ALT 14 (4-49) U/L Alkaline Phosphatase 98 (38-126) U/L Troponin I 0.024 (0.000-0.034) ng/mL NT-Pro-B Natriuret Pep pg/mL Total Protein 7.2 (6.3-8.2) g/dL Albumin 3.2 L (3.5-5.0) g/dL Urine Color Urine Appearance (Clear) Urine pH (5.0-8.0) Ur Specific [place] (1.001-1.035) Urine Protein (Negative) Urine Glucose (UA) (Negative) Urine Ketones (Negative) Urine Blood (Negative) Urine Nitrite (Negative) Urine Bilirubin (Negative) Urine Urobilinogen (<2.0) mg/dL Ur Leukocyte Esterase (Negative) 07/29/20 Range/Units 14:17 WBC (3.8-10.6) k/uL RBC (4.30-5.90) m/uL Hgb (13.0-17.5) gm/dL Hct (39.0-53.0) % MCV (80.0-100.0) fL MCH (25.0-35.0) pg MCHC (31.0-37.0) g/dL RDW (11.5-15.5) % Plt Count (150-450) k/uL Neutrophils % % Lymphocytes % % Monocytes % % Eosinophils % % Basophils % % Neutrophils # (1.3-7.7) k/uL Lymphocytes # (1.0-4.8) k/uL Monocytes # (0-1.0) k/uL Eosinophils # (0-0.7) k/uL Basophils # (0-0.2) k/uL Hypochromasia PT (9.0-12.0) sec INR (<1.2) APTT (22.0-30.0) sec Sodium (137-145) mmol/L Potassium (3.5-5.1) mmol/L Chloride (98-107) mmol/L Carbon Dioxide (22-30) mmol/L Anion Gap mmol/L BUN (9-20) mg/dL Creatinine (0.66-1.25) mg/dL Est GFR (CKD-EPI)AfAm (>60 ml/min/1.73 sqM) Est GFR (CKD-EPI)NonAf (>60 ml/min/1.73 sqM) Glucose (74-99) mg/dL Plasma Lactic Acid [place] (0.7-2.0) mmol/L Calcium (8.4-10.2) mg/dL Magnesium (1.6-2.3) mg/dL Total Bilirubin (0.2-1.3) mg/dL AST (17-59) U/L ALT (4-49) U/L Alkaline Phosphatase (38-126) U/L Troponin I (0.000-0.034) ng/mL NT-Pro-B Natriuret Pep 646 pg/mL Total Protein (6.3-8.2) g/dL Albumin (3.5-5.0) g/dL Urine Color Urine Appearance (Clear) Urine pH (5.0-8.0) Ur Specific [place] (1.001-1.035) Urine Protein (Negative) Urine Glucose (UA) (Negative) Urine Ketones (Negative) Urine Blood (Negative) Urine Nitrite (Negative) Urine Bilirubin (Negative) Urine Urobilinogen (<2.0) mg/dL Ur Leukocyte Esterase (Negative) Disposition Clinical Impression: Pneumonia Disposition: DC/TRNS INTERMEDIATE CARE FAC Condition: Fair Additional Instructions: Please use supplemental oxygenPlease return to the Emergency Department if symptoms worsen or any other concerns. Prescriptions: Ipratropium-Albuterol Nebulize [Duoneb 0.5 mg-3 mg/3 ml Soln] 3 ml INHALATION QID #1 box Is patient prescribed a controlled substance at d/c from ED?: No Referrals: Matteo Hernandez MD [Primary Care Provider] - 1-2 days Time of Disposition: 16:06 - Out of Hospital Transfer - Req. Specs Out of Hospital Transfer - Requested Specifics: Other Non-Acute ([place])
[2020-07-29 14:26] LABS: Basophils # (A) 0.1 k/uL (0-0.2); Basophils % (A) 1 %; Eosinophils # (A) 0.3 k/uL (0-0.7); Eosinophils % (A) 2 %; HCT 34.2 % (39.0-53.0); HGB 10.9 gm/dL (13.0-17.5); Hypochromasia Slight; Lymphocytes # (A) 0.9 k/uL (1.0-4.8); Lymphocytes % (A) 7 %; MCH 28.3 pg (25.0-35.0); MCHC 31.8 g/dL (31.0-37.0); MCV 88.9 fL (80.0-100.0); Mean Platelet Volume 7.9; Monocytes # (A) 0.7 k/uL (0-1.0); Monocytes % (A) 5 %; Neutrophils # (A) 11.2 k/uL (1.3-7.7); Neutrophils % (A) 84 %; Platelet Count 360 k/uL (150-450); RBC 3.84 m/uL (4.30-5.90); RDW 15.9 % (11.5-15.5); WBC 13.3 k/uL (3.8-10.6)
[2020-07-29 14:35] LABS: ALT 14 U/L (4-49); AST 20 U/L (17-59); African American GFR (CKD) >90 (>60 ml/min/1.73 sqM); Albumin 3.2 g/dL (3.5-5.0); Alkaline Phosphatase 98 U/L (38-126); Anion Gap 6 mmol/L; Blood Urea Nitrogen 26 mg/dL (9-20); Calcium 8.8 mg/dL (8.4-10.2); Carbon Dioxide 24 mmol/L (22-30); Chloride 108 mmol/L (98-107); Glucose 111 mg/dL (74-99); Magnesium 2.4 mg/dL (1.6-2.3); Non-African American GFR(CKD) >90 (>60 ml/min/1.73 sqM); Potassium 4.3 mmol/L (3.5-5.1); Sodium 138 mmol/L (137-145); Total Bilirubin 0.3 mg/dL (0.2-1.3); Total Protein 7.2 g/dL (6.3-8.2)
[2020-07-29 14:37] LABS: Partial Thromboplastin Time 25.5 sec (22.0-30.0); Prothrombin Time 10.4 sec (9.0-12.0)
[2020-07-29 14:40] LABS: Appearance,Urine Clear (Clear); Bilirubin,Urine Negative (Negative); Blood,Urine Negative (Negative); Color,Urine Yellow; Glucose,Urine (UA) Negative (Negative); Ketones,Urine Negative (Negative); Leukocyte Esterase,Urine Negative (Negative); Nitrite,Urine Negative (Negative); Protein,Urine Trace (Negative); Specific Gravity,Urine 1.019 (1.001-1.035); Urobilinogen,Urine <2.0 mg/dL (<2.0)
--- NOTE | 2020-07-29 15:19 | XR ---
EXAMINATION TYPE: XR chest 2V DATE OF EXAM: 07/29/2020 COMPARISON: Prior chest x-ray 07/27/2020 HISTORY: Difficulty breathing, dyspnea and cough TECHNIQUE: Frontal and lateral views of the chest are obtained. FINDINGS: There is an oval density at the right lung base similar to prior exam, possible pseudotumo r. Right-sided PICC line is in place, distal tip in the right atrium. Patient is rotated, there is no evident pneumothorax. Lung volumes are low. Right hemidiaphragm remains elevated. Cardiac mediastina l silhouette, pulmonary vascularity and van not significant changed. Patchy basilar density is prese nt on the right. IMPRESSION: Rotated expiratory exam. Oval density at the right lung base is indeterminate but may re present pseudotumor, consider chest CT. Probable basilar atelectasis, correlate to exclude pneumonia.
[2020-07-29 15:35] VITALS: RESP 18; TEMP 98.7
[2020-07-29 18:56] VITALS: BP 119/67; PULSE 93
== END 2020-07-29 18:40 ==
LOC: EC 13:21
DX: J18.9 Pneumonia, unspecified organism (principal); K21.9 Gastro-esophageal reflux disease without esophagitis; I10 Essential (primary) hypertension; Z88.1 Allergy status to other antibiotic agents; Z86.718 Personal history of other venous thrombosis and embolism
CPT/HCPCS: 36415; 71046; 80053; 81003; 83605; 83735; 83880; 84484; 85025; 85610; 85730; 87040; 93005; 94640; 99285

== ENCOUNTER 2020-07-29 23:24 | Inpatient (IN) | payer MEDICARE, OTHER ==
[2020-07-29] MEDS ORDERED: SODIUM CHLORIDE 0.9% 1,000 ML IV STA (23:29)
--- NOTE | 2020-07-29 23:31 | ED ---
Recheck HPI - General Stated Complaint: Recheck Time Seen by Provider: 07/29/20 23:26 Source: RN notes reviewed, old records reviewed, Caregiver Limitations: altered mental status, physical limitation - History of Present Illness Initial Comments: is a 60-year-old male DF for evaluationpatient since today for evaluation of low blood pressure, was discharged from ER earlier today sent back for low blood pressure patient is a poor strain history pain from chart and EMS MD Complaint: abnormal lab (low BP) -: days(s) Returns Today for: needs IV antibiotics, other (weakness) Symptoms Since Prior Visit: fever Context: other (low BP) Associated Symptoms: fever, chills, shortness of breath, malaise Treatments Prior to Arrival: Given Antibiotics on - Related Data Home Medications Medication Instructions Recorded Confirmed Amantadine 50mg/5ml 100 mg PEG/G-TUBE Q12H 12/28/17 07/30/20 Cholecalciferol [Vitamin D3 (25 1,000 unit PEG/G-TUBE DAILY 12/28/17 07/30/20 Mcg = 1000 Iu)] Docusate Oral Soln [Colace Oral 200 mg PEG/G-TUBE Q12H PRN 12/28/17 07/30/20 Soln] guaiFENesin [guaiFENesin Oral 200 mg PEG/G-TUBE Q6H PRN 12/28/17 07/30/20 Solution] Acetaminophen Oral Susp [Tylenol] 320 mg PEG/G-TUBE Q6H PRN 01/26/19 07/30/20 Omeprazole Magnesium [PriLOSEC 20 mg PEG/G-TUBE DAILY 01/26/19 07/30/20 Oral Susp] Metoprolol Tartrate [Lopressor] 75 mg PEG/G-TUBE Q12H 07/29/19 07/30/20 Oxybutynin Chloride [Ditropan Oral 5 mg PEG/G-TUBE Q8H 09/08/19 07/30/20 Soln] polyethylene glycoL 3350 [Miralax] 17 gm PEG/G-TUBE HS PRN 09/08/19 07/30/20 Ipratropium-Albuterol Nebulize 3 ml INHALATION RT-QID 12/16/19 07/30/20 [Duoneb 0.5 mg-3 mg/3 ml Soln] Albuterol Sulfate [Proair Hfa] 2 puff INHALATION RT-Q4H PRN 04/14/20 07/30/20 Baclofen [Lioresal] 10 mg PEG/G-TUBE Q8H 07/16/20 07/30/20 Hydrocerin Cream 1 applic TOPICAL Q8H 07/16/20 07/30/20 Lacosamide [Vimpat] 150 mg PEG/G-TUBE Q12H 07/16/20 07/30/20 Cranberry Fruit Capsule 475mg 1 cap PEG/G-TUBE DAILY 07/30/20 07/30/20 Ipratropium-Albuterol Nebulize 3 ml INHALATION RT-QID PRN 07/30/20 07/30/20 [Duoneb 0.5 mg-3 mg/3 ml Soln] Piperacillin-Tazobactam [Zosyn] 3.375 gm IVPB Q8H 07/30/20 07/30/20 carBAMazepine [TEGretol] 200 mg PEG/G-TUBE Q12H 07/30/20 07/30/20 levETIRAcetam [Keppra] 1,000 mg PEG/G-TUBE Q12H 07/30/20 07/30/20 Previous Rx's Medication Instructions Recorded Aspirin 81 mg PEG/G-TUBE DAILY chew 04/15/20 Allergies Allergy/AdvReac Type Severity Reaction Status Date / Time meropenem [From Merrem] Allergy Rash/Hives Verified 07/30/20 07:55 Review of Systems ROS Statement: Those systems with pertinent positive or pertinent negative responses have been documented in the HPI. ROS Other: All systems not noted in ROS Statement are negative. Past Medical History Past Medical History: Deep Vein Thrombosis (DVT), GERD/Reflux, Hypertension, Musculoskeletal Disorder, Neurologic Disorder, Pneumonia, Skin Disorder Additional Past Medical History / Comment(s): Pt recently hospitalized at [facility] for extensive stay with seizure/pneumonia/UTI with sepsis/respirtory failure/ vented-Pt diagnosed with multiple sclerosis at the age of 20 yrs, cognitive impairment, sister states when he is feeling well he could speak a few words/nod head appropriately/give thumbs up/roll eyes but when ill is nonverbal, pt has dysphagia/NPO with peg tube, contractures, trigeminal neuralgia, dysarthria/anarthria/neurogenic bladder with IDC-UTIs/sepsis, multiple pneumonias, recent seizure-last one 10/3/20, incontinent of stool, pt has had decubitus ulcer coccyx-sister unsure of skin condition at this time, past anemia r/t heparin/epistaxiis which involved nasal packing/transfusions, DVT bilateral arms. History of Any Multi-Drug Resistant Organisms: ESBL, MRSA Date of last positivie culture/infection: 09/13/19-MRSA; 11/23/19 ESBL-E.coli MDRO Source:: Broch lavage-Mrsa; Urine -ESBL Past Surgical History: Tonsillectomy Additional Past Surgical History / Comment(s): Gastrostomy, peg tube, I&D coccyx decubitius, bilateral lasik eye surgery. Past Anesthesia/Blood Transfusion Reactions: No Reported Reaction Additional Past Anesthesia/Blood Transfusion Reaction / Comment(s): Pt has received blood in past without reaction. Past Psychological History: Depression Smoking Status: Never smoker - Past Family History Father Family Medical History: Myocardial Infarction (WA) Additional Family Medical History / Comment(s): Father is at the age of 86 yrs while on heparin/bled, he had a mild WA Mother Family Medical History: Hypertension, Myocardial Infarction (WA) Additional Family Medical History / Comment(s): Mother of a WA at the age of 73 yrs. General Exam General appearance: alert, in no apparent distress Head exam: Present: atraumatic, normocephalic, normal inspection Eye exam: Present: normal appearance, PERRL, EOMI. Absent: scleral icterus, conjunctival injection, periorbital swelling ENT exam: Present: normal exam, mucous membranes moist Neck exam: Present: normal inspection. Absent: tenderness, meningismus, lymphadenopathy Respiratory exam: Present: normal lung sounds bilaterally. Absent: respiratory distress, wheezes, rales, rhonchi, stridor Cardiovascular Exam: Present: regular rate, normal rhythm, normal heart sounds. Absent: systolic murmur, diastolic murmur, rubs, gallop, clicks GI/Abdominal exam: Present: soft, normal bowel sounds. Absent: distended, tenderness, guarding, rebound, rigid Extremities exam: Present: normal inspection, full ROM, normal capillary refill. Absent: tenderness, pedal edema, joint swelling, calf tenderness Back exam: Present: normal inspection Neurological exam: Present: alert, oriented X3, CN II-XII intact Psychiatric exam: Present: normal affect, normal mood Skin exam: Present: warm, dry, intact, normal color. Absent: rash Course Vital Signs 07/29/20 07/29/20 07/30/20 23:26 23:47 00:39 Temperature 98.2 F Pulse Rate 88 84 Respiratory 16 22 22 Rate Blood Pressure 130/82 128/80 O2 Sat by Pulse 96 98 Oximetry 07/30/20 02:15 Temperature 98.4 F Pulse Rate 90 Respiratory 18 Rate Blood Pressure 133/86 O2 Sat by Pulse 94 L Oximetry - Reevaluation(s) Reevaluation #1: medical records reviewed Inpatient evaluation and ER visit from earlier in the day are reviewed patient remains significantly ill here in the ER sweating with shortness of breath Patient family has been informed results Medical Decision Making - Medical Decision Making 5-year-old male DF for evaluation patient has recurrent shortness of breath difficulty breathing here in the ER patient will be admitted for persistent pneumonia known aspiration pneumonia - Lab Data Result diagrams: 07/29/20 23:35 07/29/20 23:35 Lab Results 07/29/20 07/29/20 07/29/20 Range/Units 23:35 23:35 23:35 WBC 17.0 H (3.8-10.6) k/uL RBC 3.68 L (4.30-5.90) m/uL Hgb 10.4 L (13.0-17.5) gm/dL Hct 32.6 L (39.0-53.0) % MCV 88.7 (80.0-100.0) fL MCH 28.2 (25.0-35.0) pg MCHC 31.7 (31.0-37.0) g/dL RDW 16.2 H (11.5-15.5) % Plt Count 372 (150-450) k/uL Neutrophils % 89 % Lymphocytes % 5 % Monocytes % 4 % Eosinophils % 2 % Basophils % 1 % Neutrophils # 15.1 H (1.3-7.7) k/uL Lymphocytes # 0.8 L (1.0-4.8) k/uL Monocytes # 0.6 (0-1.0) k/uL Eosinophils # 0.3 (0-0.7) k/uL Basophils # 0.1 (0-0.2) k/uL Hypochromasia Slight Anisocytosis Slight PT 10.7 (9.0-12.0) sec INR 1.0 (<1.2) APTT 28.2 (22.0-30.0) sec D-Dimer 4.94 H (<0.60) mg/L FEU VBG pH (7.31-7.41) VBG pCO2 (37-51) mmHg VBG HCO3 (24-28) mmol/L Sodium 139 (137-145) mmol/L Potassium 4.2 (3.5-5.1) mmol/L Chloride 107 (98-107) mmol/L Carbon Dioxide 24 (22-30) mmol/L Anion Gap 8 mmol/L BUN 22 H (9-20) mg/dL Creatinine 0.78 (0.66-1.25) mg/dL Est GFR (CKD-EPI)AfAm >90 (>60 ml/min/1.73 sqM) Est GFR (CKD-EPI)NonAf >90 (>60 ml/min/1.73 sqM) Glucose 112 H (74-99) mg/dL Plasma Lactic Acid Taurus (0.7-2.0) mmol/L Calcium 8.7 (8.4-10.2) mg/dL Magnesium 2.4 H (1.6-2.3) mg/dL Total Bilirubin 0.3 (0.2-1.3) mg/dL AST 23 (17-59) U/L ALT 13 (4-49) U/L Alkaline Phosphatase 87 (38-126) U/L Creatine Kinase 53 L (55-170) U/L Troponin I (0.000-0.034) ng/mL NT-Pro-B Natriuret Pep pg/mL Total Protein 6.9 (6.3-8.2) g/dL Albumin 3.1 L (3.5-5.0) g/dL 07/29/20 07/29/20 07/29/20 Range/Units 23:35 23:35 23:35 WBC (3.8-10.6) k/uL RBC (4.30-5.90) m/uL Hgb (13.0-17.5) gm/dL Hct (39.0-53.0) % MCV (80.0-100.0) fL MCH (25.0-35.0) pg MCHC (31.0-37.0) g/dL RDW (11.5-15.5) % Plt Count (150-450) k/uL Neutrophils % % Lymphocytes % % Monocytes % % Eosinophils % % Basophils % % Neutrophils # (1.3-7.7) k/uL Lymphocytes # (1.0-4.8) k/uL Monocytes # (0-1.0) k/uL Eosinophils # (0-0.7) k/uL Basophils # (0-0.2) k/uL Hypochromasia Anisocytosis PT (9.0-12.0) sec INR (<1.2) APTT (22.0-30.0) sec D-Dimer (<0.60) mg/L FEU VBG pH (7.31-7.41) VBG pCO2 (37-51) mmHg VBG HCO3 (24-28) mmol/L Sodium (137-145) mmol/L Potassium (3.5-5.1) mmol/L Chloride (98-107) mmol/L Carbon Dioxide (22-30) mmol/L Anion Gap mmol/L BUN (9-20) mg/dL Creatinine (0.66-1.25) mg/dL Est GFR (CKD-EPI)AfAm (>60 ml/min/1.73 sqM) Est GFR (CKD-EPI)NonAf (>60 ml/min/1.73 sqM) Glucose (74-99) mg/dL Plasma Lactic Acid Taurus 0.6 L (0.7-2.0) mmol/L Calcium (8.4-10.2) mg/dL Magnesium (1.6-2.3) mg/dL Total Bilirubin (0.2-1.3) mg/dL AST (17-59) U/L ALT (4-49) U/L Alkaline Phosphatase (38-126) U/L Creatine Kinase (55-170) U/L Troponin I 0.032 (0.000-0.034) ng/mL NT-Pro-B Natriuret Pep 814 pg/mL Total Protein (6.3-8.2) g/dL Albumin (3.5-5.0) g/dL 07/29/20 Range/Units 23:35 WBC (3.8-10.6) k/uL RBC (4.30-5.90) m/uL Hgb (13.0-17.5) gm/dL Hct (39.0-53.0) % MCV (80.0-100.0) fL MCH (25.0-35.0) pg MCHC (31.0-37.0) g/dL RDW (11.5-15.5) % Plt Count (150-450) k/uL Neutrophils % % Lymphocytes % % Monocytes % % Eosinophils % % Basophils % % Neutrophils # (1.3-7.7) k/uL Lymphocytes # (1.0-4.8) k/uL Monocytes # (0-1.0) k/uL Eosinophils # (0-0.7) k/uL Basophils # (0-0.2) k/uL Hypochromasia Anisocytosis PT (9.0-12.0) sec INR (<1.2) APTT (22.0-30.0) sec D-Dimer (<0.60) mg/L FEU VBG pH 7.52 H (7.31-7.41) VBG pCO2 29 L (37-51) mmHg VBG HCO3 24 (24-28) mmol/L Sodium (137-145) mmol/L Potassium (3.5-5.1) mmol/L Chloride (98-107) mmol/L Carbon Dioxide (22-30) mmol/L Anion Gap mmol/L BUN (9-20) mg/dL Creatinine (0.66-1.25) mg/dL Est GFR (CKD-EPI)AfAm (>60 ml/min/1.73 sqM) Est GFR (CKD-EPI)NonAf (>60 ml/min/1.73 sqM) Glucose (74-99) mg/dL Plasma Lactic Acid Taurus (0.7-2.0) mmol/L Calcium (8.4-10.2) mg/dL Magnesium (1.6-2.3) mg/dL Total Bilirubin (0.2-1.3) mg/dL AST (17-59) U/L ALT (4-49) U/L Alkaline Phosphatase (38-126) U/L Creatine Kinase (55-170) U/L Troponin I (0.000-0.034) ng/mL NT-Pro-B Natriuret Pep pg/mL Total Protein (6.3-8.2) g/dL Albumin (3.5-5.0) g/dL - EKG Data -: EKG Interpreted by Me (EKG is sinus rhythm 87, AL 154 QRS 80 QTc 425) - Radiology Data Radiology results: report reviewed (chest CT is evidence of persistent pneumonia), image reviewed Critical Care Time Critical Care Time: Yes Total Critical Care Time: 31 Disposition Clinical Impression: Aspiration pneumonia, HCAP (healthcare-associated pneumonia), Sepsis, Altered mental status Disposition: ADMITTED IP TO THIS HOSP Condition: Serious Is patient prescribed a controlled substance at d/c from ED?: No
[2020-07-29 23:50] LABS: Anisocytosis Slight; Basophils # (A) 0.1 k/uL (0-0.2); Basophils % (A) 1 %; Eosinophils # (A) 0.3 k/uL (0-0.7); Eosinophils % (A) 2 %; HCT 32.6 % (39.0-53.0); HGB 10.4 gm/dL (13.0-17.5); Hypochromasia Slight; Lymphocytes # (A) 0.8 k/uL (1.0-4.8); Lymphocytes % (A) 5 %; MCH 28.2 pg (25.0-35.0); MCHC 31.7 g/dL (31.0-37.0); MCV 88.7 fL (80.0-100.0); Mean Platelet Volume 7.6; Monocytes # (A) 0.6 k/uL (0-1.0); Monocytes % (A) 4 %; Neutrophils # (A) 15.1 k/uL (1.3-7.7); Neutrophils % (A) 89 %; Platelet Count 372 k/uL (150-450); RBC 3.68 m/uL (4.30-5.90); RDW 16.2 % (11.5-15.5); VBG PH 7.52 (7.31-7.41)
[2020-07-30 00:01] LABS: ALT 13 U/L (4-49); AST 23 U/L (17-59); African American GFR (CKD) >90 (>60 ml/min/1.73 sqM); Albumin 3.1 g/dL (3.5-5.0); Alkaline Phosphatase 87 U/L (38-126); Anion Gap 8 mmol/L; Blood Urea Nitrogen 22 mg/dL (9-20); Calcium 8.7 mg/dL (8.4-10.2); Carbon Dioxide 24 mmol/L (22-30); Chloride 107 mmol/L (98-107); Creatine Kinase 53 U/L (55-170); Glucose 112 mg/dL (74-99); Magnesium 2.4 mg/dL (1.6-2.3); Non-African American GFR(CKD) >90 (>60 ml/min/1.73 sqM); Potassium 4.2 mmol/L (3.5-5.1); Sodium 139 mmol/L (137-145); Total Bilirubin 0.3 mg/dL (0.2-1.3); Total Protein 6.9 g/dL (6.3-8.2)
[2020-07-30 00:22] LABS: Partial Thromboplastin Time 28.2 sec (22.0-30.0); Prothrombin Time 10.7 sec (9.0-12.0)
--- NOTE | 2020-07-30 00:27 | CT ---
EXAM: CT Chest Without Intravenous Contrast CLINICAL HISTORY: ITS.REASON CT Reason: sob TECHNIQUE: Axial computed tomography images of the chest without intravenous contrast. CTDI is 7.2 mGy and DLP is 271 mGy-cm. This CT exam was performed using one or more of the following dose reduction techniques: automated exposure control, adjustment of the mA and/or kV according to patient size, and/or use of iterative reconstruction technique. COMPARISON: No relevant prior studies available. FINDINGS: Lungs: There are consolidative peribronchial opacities in the right lower lobe. There are patchy groundglass infiltrates in the bilateral upper lobes, right middle lobe, and left lower lobe. There is a 6.2 x 5. 0 cm mass with soft tissue density extending along the right minor fissure. Pleural space: No layering pleural effusions. No pneumothorax. Heart: Unremarkable. No cardiomegaly. No significant pericardial effusion. Thyroid: Normal thyroid gland. Bones/joints: No acute fracture or dislocation. Old left fourth rib fracture, now healed. Soft tissues: Unremarkable. Vasculature: Normal heart size. Coronary artery atherosclerosis. Thoracic aorta and main pulmonary artery are normal in caliber. No thoracic aortic aneurysm. Lymph nodes: Subcentimeter mediastinal lymph nodes. No lymphadenopathy by CT size criteria. Tubes, lines and devices: Right PICC extends to the SVC. IMPRESSION: 1. Loculated mass along the right minor fissure. This represents the typical location for loculated pleural fluid. However, the mass measures soft tissue density. Differential considerations include loculated hemorrhagic/proteinaceous pleural fluid versus mass extending along the pulmonary fissure. Chest CT with and without contrast may be helpful to assess for possible enhancement within this lesion. 2. Consolidative peribronchial opacities in the right lower lobe with patchy groundglass infiltrates throughout the remainder of the lung, suspicious for pneumonia. Recommend imaging follow-up after treatment completion.
[2020-07-30] MEDS ORDERED: PNEUMONIA PROTOCOL UTILIZED 1 EACH MISC PO PRN (00:36)
[2020-07-30] MEDS ORDERED: AZITHROMYCIN 500 MG in SODIUM CHLORIDE 0.9% 250 ML IVPB ONE (00:36)
[2020-07-30 00:38] LABS: D-Dimer 4.94 mg/L FEU (<0.60)
[2020-07-30] MEDS: SODIUM CHLORIDE 0.9% 1,000 ML IV SCH ×3 (01:04→21:48)
[2020-07-30] MEDS: metroNIDAZOLE-NS PMX 500 MG in SALINE 1 100ML.BAG IVPB SCH ×2 (03:07→07:59)
[2020-07-30] MEDS ORDERED: guaiFENesin SYRUP 100MG/5ML 200 MG/10 ML CUP PEG/G-TUBE PRN (11:21)
[2020-07-30] MEDS ORDERED: DOCUSATE ORAL SOLN 100 MG/10 ML CUP PEG/G-TUBE PRN (11:21)
[2020-07-30] MEDS ORDERED: ACETAMINOPHEN ORAL SUSP 160 MG/5 ML CUP PEG/G-TUBE PRN (11:21)
[2020-07-30] MEDS ORDERED: polyethylene glycoL 3350 17 GM POWD.PACK PEG/G-TUBE PRN (11:21)
[2020-07-30] MEDS ORDERED: PIPERACILLIN-TAZOBACTAM 3.375 GM VIAL IVPB SCH (11:30)
[2020-07-30] MEDS: LACOSAMIDE 150 MG TABLET PEG/G-TUBE SCH (12:30)
[2020-07-30] MEDS: CHOLECALCIFEROL 1,000 UNIT TAB PEG/G-TUBE SCH (12:30)
[2020-07-30] MEDS: METOPROLOL TARTRATE 25 MG TAB PEG/G-TUBE SCH (12:31)
[2020-07-30] MEDS: BACLOFEN 10 MG TAB PEG/G-TUBE SCH ×2 (12:31→21:47)
[2020-07-30] MEDS: ASPIRIN 81 MG PEG/G-TUBE SCH (12:31)
[2020-07-30] MEDS: levETIRAcetam 500 MG TAB PEG/G-TUBE SCH ×2 (12:31→21:47)
[2020-07-30] MEDS: carBAMazepine 200 MG TAB PEG/G-TUBE SCH (12:32)
[2020-07-30] MEDS: ENOXAPARIN 40 MG/0.4 ML SYRINGE SQ SCH (12:33)
[2020-07-30] MEDS: PANTOPRAZOLE SODIUM 40 MG GRANULE PKT PEG/G-TUBE SCH (12:33)
[2020-07-30] MEDS: PIPERACILLIN-TAZOBACTAM 3.375 GM in SODIUM CHLORIDE 0.9% 100 ML IVPB SCH ×2 (12:34→21:47)
--- NOTE | 2020-07-30 13:33 | P.CNPUL ---
History of Present Illness Consult date: 07/30/20 Requesting physician: Dara Crowe Reason for consult: dyspnea Chief complaint: Shortness of breath History of present illness: This is 60-year-old white male patient known to our practice from previous admissions for complications related to aspiration pneumonia. Patient has a known history of multiple sclerosis, chronic aspiration, chronic dysphagia, PEG tube placement, recurrent urinary tract infections, hypertension, severe cognitive impairment related to multiple sclerosis, bowel and urinary incontinence, neurogenic bladder, and previous episodes of pneumonia requiring intubation and mechanical ventilation. Patient was recently hospitalized in this hospital for an episode of aspiration related pneumonia, patient was intubated and on mechanical ventilator. There was also concern about seizures, and patient was followed by neurology, he is maintained on a combination of Keppra and Vimpat. Patient was successfully weaned and extubated from the mechanical ventilator, his sputum culture from previous admission showed evidence of pseudomonas aeruginosa Corynebacterium stratum, blood cultures were negative, and urine culture showed Proteus mirabilis. Patient was treated with Zosyn, he was stabilized, and he was discharged to [facility] on 07/27/2020 to finish a course of vancomycin and Zosyn. On 07/29/2020 patient was brought back to the emergency department per EMS for evaluation of shortness of breath. Chest x-ray showed oval density at the right lung base, possibly representing pseudotumor, probable basilar atelectasis. Of note pseudotumor in the right lung base was also seen on the chest x-ray from previous admission. CT chest showed a loculated mass along the right minor fissure likely related to pseudotumor, and it also showed consolidative peribronchial opacities in the right lower lobe with patchy groundglass infiltrates suspicious for pneumonia. Patient has been afebrile, room air pulse ox is 92-98%, hemodynamically stable. Patient has scattered rhonchi especially in the upper airway. Today's labs have been reviewed, showing white blood cell count of 17, hemoglobin of 10.4, d-dimer was 4.94, electrolytes were within normal limits, B1 is 22, creatinine 0.78, troponin was 0.032, proBNP was 814, patient appears to be in no acute distress, hemodynamically patient is stable, venous blood gas was reviewed, pH of 7.52, pCO2 of 29. She is seen on medical surgical floor, appears to be comfortable, and appears to be slightly tachypneic, but no distress. Patient is nonverbal, he is not able to provide any history, but he is awake, his tube feedings have been on hold [facility], abdomen is soft, no nausea or vomiting, will restart his tube feedings. Antibiotic coverage was started on form of azithromycin and Rocephin, will restart Zosyn Review of Systems All systems: negative Constitutional: Denies chills, Denies fever Eyes: denies blurred vision, denies pain Ears, nose, mouth and throat: Denies headache, Denies sore throat Cardiovascular: Denies chest pain, Denies shortness of breath Respiratory: Reports dyspnea, Denies cough Gastrointestinal: Denies abdominal pain, Denies diarrhea, Denies nausea, Denies vomiting Musculoskeletal: Denies myalgias Integumentary: Denies pruritus, Denies rash Neurological: Denies numbness, Denies weakness Psychiatric: Denies anxiety, Denies depression Endocrine: Denies fatigue, Denies weight change Past Medical History Past Medical History: Deep Vein Thrombosis (DVT), GERD/Reflux, Hypertension, Musculoskeletal Disorder, Neurologic Disorder, Pneumonia, Skin Disorder Additional Past Medical History / Comment(s): Pt recently hospitalized at [facility] for extensive stay with seizure/pneumonia/UTI with sepsis/respirtory failure/vented-Pt diagnosed with multiple sclerosis at the age of 20 yrs, cognitive impairment, sister states when he is feeling well he could speak a few words/nod head appropriately/give thumbs up/roll eyes but when ill is nonverbal, pt has dysphagia/NPO with peg tube, contractures, trigeminal neuralgia, dysarthria/anarthria/neurogenic bladder with IDC-UTIs/sepsis, multiple pneumonias, recent seizure-last one 07/03/20, incontinent of stool, pt has had decubitus ulcer coccyx-sister unsure of skin condition at this time, past anemia r/t heparin/epistaxiis which involved nasal packing/transfusions, DVT bilateral arms. History of Any Multi-Drug Resistant Organisms: ESBL, MRSA Date of last positivie culture/infection: 09/13/19-MRSA; 11/23/19 ESBL-E.coli MDRO Source:: Broch lavage-Mrsa; Urine -ESBL Past Surgical History: Tonsillectomy Additional Past Surgical History / Comment(s): Gastrostomy, peg tube, I&D coccyx decubitius, bilateral lasik eye surgery. Past Anesthesia/Blood Transfusion Reactions: No Reported Reaction Additional Past Anesthesia/Blood Transfusion Reaction / Comment(s): Pt has received blood in past without reaction. Past Psychological History: Depression Additional Psychological History / Comment(s): Pt resides at [facility]. He normally is in bed/amita lift to wheelchair. Has peg/IDC Smoking Status: Unknown if ever smoked Past Alcohol Use History: None Reported Past Drug Use History: None Reported - Past Family History Father Family Medical History: Myocardial Infarction ([place]) Additional Family Medical History / Comment(s): Father is at the age of 86 yrs while on heparin/bled, he had a mild [place] Mother Family Medical History: Hypertension, Myocardial Infarction ([place]) Additional Family Medical History / Comment(s): Mother of a [place] at the age of 73 yrs. Medications and Allergies Home Medications Medication Instructions Recorded Confirmed Type Amantadine 50mg/5ml 100 mg PEG/G-TUBE Q12H 12/28/17 07/30/20 History Cholecalciferol [Vitamin D3 (25 1,000 unit PEG/G-TUBE DAILY 12/28/17 07/30/20 History Mcg = 1000 Iu)] Docusate Oral Soln [Colace Oral 200 mg PEG/G-TUBE Q12H PRN 12/28/17 07/30/20 History Soln] guaiFENesin [guaiFENesin Oral 200 mg PEG/G-TUBE Q6H PRN 12/28/17 07/30/20 History Solution] Acetaminophen Oral Susp [Tylenol] 320 mg PEG/G-TUBE Q6H PRN 01/26/19 07/30/20 History Omeprazole Magnesium [PriLOSEC 20 mg PEG/G-TUBE DAILY 01/26/19 07/30/20 History Oral Susp] Metoprolol Tartrate [Lopressor] 75 mg PEG/G-TUBE Q12H 07/29/19 07/30/20 History Oxybutynin Chloride [Ditropan Oral 5 mg PEG/G-TUBE Q8H 09/08/19 07/30/20 History Soln] polyethylene glycoL 3350 [Miralax] 17 gm PEG/G-TUBE HS PRN 09/08/19 07/30/20 History Ipratropium-Albuterol Nebulize 3 ml INHALATION RT-QID 12/16/19 07/30/20 History [Duoneb 0.5 mg-3 mg/3 ml Soln] Albuterol Sulfate [Proair Hfa] 2 puff INHALATION RT-Q4H PRN 04/14/20 07/30/20 History Aspirin 81 mg PEG/G-TUBE DAILY chew 04/15/20 07/30/20 Rx Baclofen [Lioresal] 10 mg PEG/G-TUBE Q8H 07/16/20 07/30/20 History Hydrocerin Cream 1 applic TOPICAL Q8H 07/16/20 07/30/20 History Lacosamide [Vimpat] 150 mg PEG/G-TUBE Q12H 07/16/20 07/30/20 History Cranberry Fruit Capsule 475mg 1 cap PEG/G-TUBE DAILY 07/30/20 07/30/20 History Ipratropium-Albuterol Nebulize 3 ml INHALATION RT-QID PRN 07/30/20 07/30/20 History [Duoneb 0.5 mg-3 mg/3 ml Soln] Piperacillin-Tazobactam [Zosyn] 3.375 gm IVPB Q8H 07/30/20 07/30/20 History carBAMazepine [TEGretol] 200 mg PEG/G-TUBE Q12H 07/30/20 07/30/20 History levETIRAcetam [Keppra] 1,000 mg PEG/G-TUBE Q12H 07/30/20 07/30/20 History Allergies Allergy/AdvReac Type Severity Reaction Status Date / Time meropenem [From Merrem] Allergy Rash/Hives Verified 07/30/20 07:55 Physical Exam Vitals: Vital Signs Temp Pulse Pulse Resp BP BP Pulse Ox 07/30/20 08:20 98 07/30/20 08:00 95 17 07/30/20 07:00 99.3 F 95 17 143/86 92 L 07/30/20 04:00 89 17 07/30/20 03:22 89 17 07/30/20 02:57 97.8 F 89 17 129/85 95 07/30/20 02:15 98.4 F 90 18 133/86 94 L 07/30/20 00:39 84 22 128/80 98 07/29/20 23:47 22 07/29/20 23:26 98.2 F 88 16 130/82 96 Intake and Output 07/29/20 07/30/20 07/30/20 22:59 06:59 14:59 Intake Total 50 Balance 50 Intake: Tube Feeding 20 Other 30 Other: Voiding Method Indwelling Catheter Indwelling Catheter Weight 65.771 kg GENERAL EXAM: Alert, nonverbal, 60-year-old white male, cachectic currently on 2l/min room air with a pulse ox of 98%, patient has a very weak cough HEAD: Normocephalic/atraumatic. EYES: Normal reaction of pupils, equal size. Conjunctiva pink, sclera white. NOSE: Clear with pink turbinates. THROAT: No erythema or exudates. NECK: No masses, no JVD, no thyroid enlargement, no adenopathy. CHEST: No chest wall deformity. Symmetrical expansion. LUNGS: Equal air entry with minimal rhonchi CVS: Regular rate and rhythm, normal S1 and S2, no gallops, no murmurs, no rubs ABDOMEN: Soft, nontender. No hepatosplenomegaly, normal bowel sounds, no guarding or rigidity. PEG tube present in the left upper abdomen, feedings are on hold right now EXTREMITIES: No clubbing, no edema, no cyanosis, 2+ pulses and upper and lower extremities. Chronic contractures involving upper and lower extremities, muscle weakness and overall rigidity MUSCULOSKELETAL: Chronic contractures, muscle wasting SPINE: No scoliosis or deformity SKIN: No rashes CENTRAL NERVOUS SYSTEM: Alert, unable to assess orientation, patient is nonverbal, he is able to nod his head yes to simple questions Results - Laboratory Findings CBC and BMP: 07/29/20 23:35 07/29/20 23:35 PT/INR, D-dimer PT 10.7 sec (9.0-12.0) 07/29/20 23:35 INR 1.0 (<1.2) 07/29/20 23:35 D-Dimer 4.94 mg/L FEU (<0.60) H 07/29/20 23:35 Abnormal lab findings: Abnormal Labs 07/29/20 07/29/20 07/29/20 23:35 23:35 23:35 WBC 17.0 H RBC 3.68 L Hgb 10.4 L Hct 32.6 L RDW 16.2 H Neutrophils # 15.1 H Lymphocytes # 0.8 L D-Dimer 4.94 H VBG pH VBG pCO2 BUN 22 H Glucose 112 H Plasma Lactic Acid Taurus Magnesium 2.4 H Creatine Kinase 53 L Albumin 3.1 L 07/29/20 07/29/20 23:35 23:35 WBC RBC Hgb Hct RDW Neutrophils # Lymphocytes # D-Dimer VBG pH 7.52 H VBG pCO2 29 L BUN Glucose Plasma Lactic Acid Taurus 0.6 L Magnesium Creatine Kinase Albumin - Diagnostic Findings Chest x-ray: report reviewed, image reviewed CT scan - chest: report reviewed, image reviewed Assessment and Plan Plan: Assessment: #1. Dyspnea, tachypnea, possibly related to chronic aspiration, and the patient is already on antibiotic treatment for recent history of aspiration pneumonia sputum cultures positive for pseudomonas aeruginosa. Patient recently discharged from the hospital on 07/27/2020 on Zosyn and vancomycin #2. Recent admission for acute hypoxic respiratory failure related to aspiration pneumonia, and seizures. Patient required intubation and mechanical support during that admission, discharged to the [facility] on 07/02 #3. Chronic aspiration, he is on PEG tube feedings #4. Recent history of Proteus mirabilis urinary tract infection #5. Multiple sclerosis with cognitive impairment, speech impairment, muscle atrophy, rigidity, chronic contractures, urinary and bowel incontinence, and gait impairment #6. Previous hospitalizations for recurrent aspiration pneumonia, and recurrent urinary tract infections related to gram-negative organisms and ESBL producing E. coli in the urine #7. Chronic dysphasia #8. Multiple hospitalizations related to history of gram negative sepsis #9. Poor baseline functional status, patient is bedridden, and [facility]. History of seizure disorder Plan: Continue current medical treatment, we'll switch the antibiotic coverage to Zosyn, vital signs have been stable, patient maintain a stable saturations on room air, maintain aspiration precautions, head of the bed up 30 to 45 at all times, will restart patient's home medications, including his seizure medications, no seizure episodes, we'll restart patient's tube feedings. We'll continue to follow I performed a history & physical examination of the patient and discussed their management with my nurse practitioner, Naheed Pace. I reviewed the nurse practitioner's note and agree with the documented findings and plan of care. Lung sounds are positive for scattered rhonchi. The findings and the impression was discussed with the patient. I attest to the documentation by the nurse practitioner. Time with Patient: Greater than 30
[2020-07-30 14:59] VITALS: BMI 21.4
[2020-07-30] MEDS: ALBUTEROL NEBULIZED 2.5 MG/3 ML INHALATION PRN (20:51)
--- NOTE | 2020-07-30 21:33 | P.HPIM ---
History of Present Illness H&P Date: 07/30/20 Chief Complaint: FELICITA Patient is a 60-year-old male with a known history of multiple sclerosis at age 20, cognitive impairment, dysphagia/n.p.o. with PEG tube, contractures, dy sarthria, neurogenic bladder status post chronic indwelling Stein catheter, multiple pneumonias, seizure disorder and recent hospitalization with seizures/pneumonia/UTI with sepsis/respiratory failure/status post vent was discharged to [facility] on 07/27/2020 to finish the course of antibi otics in the form of vancomycin and Zosyn. Patient was recently treated at [facility]. On 07/29/2020 patient was brought back to the hospital by EMS for evaluation of shortness of breath. Patient was not febrile on admission. Patient had CT chest which showed loculated mass along the right minor fissure. Represents typical location for loculated pleural effusion. However the mass measures soft tissue density. DD include loculated hemorrhagic proteinaceous pleural fluid versus mass extending along the pulmonary fissure. Consolidative peribronchial opacities in the right lower lobe with patchy groundglass infiltrates throughout the remainder of the lungs. Suspicious for pneumonia. EKG showed normal sinus rhythm Laboratory data showed WBC 17.0, hemoglobin 10.4, RDW 16.2 and absolute neutrophil count 15.1 Lymphocytes 0.8 and Covid PCR negative. D-dimer is 4.94 BUN 2020 creatinine 0.78 Sodium 139, potassium 4.1 bicarb is 24. NT proBNP 814 Patient was given a dose of ceftriaxone and azithromycin in the ER. Currently patient was started on Zosyn. Review of Systems Complete review of systems could not be obtained from the patient. Past Medical History Past Medical History: Deep Vein Thrombosis (DVT), GERD/Reflux, Hypertension, Musculoskeletal Disorder, Neurologic Disorder, Pneumonia, Skin Disorder Additional Past Medical History / Comment(s): Pt recently hospitalized at [facility] for extensive stay with seizure/pneumonia/UTI with sepsis/respirtory failure/ve nted-Pt diagnosed with multiple sclerosis at the age of 20 yrs, cognitive impairment, sister states when he is feeling well he could speak a few words/nod head appropriately/give thumbs up/roll eyes but when ill is nonverbal, pt has dysphagia/NPO with peg tube, contractures, trigeminal neuralgia, dy sarthria/anarthria/neurogenic bladder with IDC-UTIs/sepsis, multiple pneumonias, recent seizure-last one 07/03/20, incontinent of stool, pt has had decubitus ulcer coccyx-sister unsure of skin condition at this time, past anemia r/t heparin/epistaxiis which involved nasal packing/transfusions, DVT bilateral arms. History of Any Multi-Drug Resistant Organisms: ESBL, MRSA Date of last positivie culture/infection: 09/13/19-MRSA; 11/23/19 ESBL-E.coli MDRO Source:: Broch lavage-Mrsa; Urine -ESBL Past Surgical History: Tonsillectomy Additional Past Surgical History / Comment(s): Gastrostomy, peg tube, I&D coccyx decubitius, bilateral lasik eye surgery. Past Anesthesia/Blood Transfusion Reactions: No Reported Reaction Additional Past Anesthesia/Blood Transfusion Reaction / Comment(s): Pt has received blood in past without reaction. Past Psychological History: Depression Additional Psychological History / Comment(s): Pt resides at [facility]. He normally is in bed/amita lift to wheelchair. Has peg/IDC Smoking Status: Unknown if ever smoked Past Alcohol Use History: None Reported Past Drug Use History: None Reported - Past Family History Father Family Medical History: Myocardial Infarction ([place]) Additional Family Medical History / Comment(s): Father is at the age of 86 yrs while on heparin/bled, he had a mild [place] Mother Family Medical History: Hypertension, Myocardial Infarction ([place]) Additional Family Medical History / Comment(s): Mother of a [place] at the age of 73 yrs. Medications and Allergies Home Medications Medication Instructions Recorded Confirmed Type Amantadine 50mg/5ml 100 mg PEG/G-TUBE Q12H 12/28/17 07/30/20 History Cholecalciferol [Vitamin D3 (25 1,000 unit PEG/G-TUBE DAILY 12/28/17 07/30/20 History Mcg = 1000 Iu)] Docusate Oral Soln [Colace Oral 200 mg PEG/G-TUBE Q12H PRN 12/28/17 07/30/20 History Soln] guaiFENesin [guaiFENesin Oral 200 mg PEG/G-TUBE Q6H PRN 12/28/17 07/30/20 History Solution] Acetaminophen Oral Susp [Tylenol] 320 mg PEG/G-TUBE Q6H PRN 01/26/19 07/30/20 History Omeprazole Magnesium [PriLOSEC 20 mg PEG/G-TUBE DAILY 01/26/19 07/30/20 History Oral Susp] Metoprolol Tartrate [Lopressor] 75 mg PEG/G-TUBE Q12H 07/29/19 07/30/20 History Oxybutynin Chloride [Ditropan Oral 5 mg PEG/G-TUBE Q8H 09/08/19 07/30/20 History Soln] polyethylene glycoL 3350 [Miralax] 17 gm PEG/G-TUBE HS PRN 09/08/19 07/30/20 History Ipratropium-Albuterol Nebulize 3 ml INHALATION RT-QID 12/16/19 07/30/20 History [Duoneb 0.5 mg-3 mg/3 ml Soln] Albuterol Sulfate [Proair Hfa] 2 puff INHALATION RT-Q4H PRN 04/14/20 07/30/20 History Aspirin 81 mg PEG/G-TUBE DAILY chew 04/15/20 07/30/20 Rx Baclofen [Lioresal] 10 mg PEG/G-TUBE Q8H 07/16/20 07/30/20 History Hydrocerin Cream 1 applic TOPICAL Q8H 07/16/20 07/30/20 History Lacosamide [Vimpat] 150 mg PEG/G-TUBE Q12H 07/16/20 07/30/20 History Cranberry Fruit Capsule 475mg 1 cap PEG/G-TUBE DAILY 07/30/20 07/30/20 History Ipratropium-Albuterol Nebulize 3 ml INHALATION RT-QID PRN 07/30/20 07/30/20 History [Duoneb 0.5 mg-3 mg/3 ml Soln] Piperacillin-Tazobactam [Zosyn] 3.375 gm IVPB Q8H 07/30/20 07/30/20 History carBAMazepine [TEGretol] 200 mg PEG/G-TUBE Q12H 07/30/20 07/30/20 History levETIRAcetam [Keppra] 1,000 mg PEG/G-TUBE Q12H 07/30/20 07/30/20 History Allergies Allergy/AdvReac Type Severity Reaction Status Date / Time meropenem [From Merrem] Allergy Rash/Hives Verified 07/30/20 07:55 Physical Exam Vitals: Vital Signs Temp Pulse Pulse Resp BP BP Pulse Ox 07/30/20 08:20 98 07/30/20 08:00 95 17 07/30/20 07:00 99.3 F 95 17 143/86 92 L 07/30/20 04:00 89 17 07/30/20 03:22 89 17 07/30/20 02:57 97.8 F 89 17 129/85 95 07/30/20 02:15 98.4 F 90 18 133/86 94 L 07/30/20 00:39 84 22 128/80 98 07/29/20 23:47 22 07/29/20 23:26 98.2 F 88 16 130/82 96 Intake and Output 07/29/20 07/30/20 07/30/20 22:59 06:59 14:59 Intake Total 50 Balance 50 Intake: Tube Feeding 20 Other 30 Other: Voiding Method Indwelling Catheter Indwelling Catheter Weight 65.771 kg PHYSICAL EXAMINATION: Patient is lying in the bed comfortably, no acute distress, Patient does not respond to verbal stimuli. HEENT: Normocephalic. Neck is supple. Pupils reactive. Nostrils clear. Oral cavity is moist. Ears reveal no drainage. Neck reveals no JVD, carotid bruits, or thyromegaly. CHEST EXAMINATION: Trachea is central. Symmetrical expansion. Bibasilar diminished air entry and right sided coarse crackles. CARDIAC: Normal S1, S2 with no gallops. No murmurs ABDOMEN: Soft. Bowel sounds present, peg tub ein place. No organomegaly. No abdominal bruits. Extremities: reveal no edema. No clubbing or cyanosis Neurologically Patient is nonverbal and bedridden with muscle wasting and contractures. Skin: No rash Psychiatric: Could not be assessed at this time. Musculoskeletal: Patient does have contractures of bilateral upper extremities and lower extremities.. Results CBC & Chem 7: 07/29/20 23:35 07/29/20 23:35 Labs: Abnormal Lab Results - Last 24 Hours (Table) 07/29/20 07/29/20 07/29/20 Range/Units 23:35 23:35 23:35 WBC 17.0 H (3.8-10.6) k/uL RBC 3.68 L (4.30-5.90) m/uL Hgb 10.4 L (13.0-17.5) gm/dL Hct 32.6 L (39.0-53.0) % RDW 16.2 H (11.5-15.5) % Neutrophils # 15.1 H (1.3-7.7) k/uL Lymphocytes # 0.8 L (1.0-4.8) k/uL D-Dimer 4.94 H (<0.60) mg/L FEU VBG pH (7.31-7.41) VBG pCO2 (37-51) mmHg BUN 22 H (9-20) mg/dL Glucose 112 H (74-99) mg/dL Plasma Lactic Acid Taurus (0.7-2.0) mmol/L Magnesium 2.4 H (1.6-2.3) mg/dL Creatine Kinase 53 L (55-170) U/L Albumin 3.1 L (3.5-5.0) g/dL 07/29/20 07/29/20 Range/Units 23:35 23:35 WBC (3.8-10.6) k/uL RBC (4.30-5.90) m/uL Hgb (13.0-17.5) gm/dL Hct (39.0-53.0) % RDW (11.5-15.5) % Neutrophils # (1.3-7.7) k/uL Lymphocytes # (1.0-4.8) k/uL D-Dimer (<0.60) mg/L FEU VBG pH 7.52 H (7.31-7.41) VBG pCO2 29 L (37-51) mmHg BUN (9-20) mg/dL Glucose (74-99) mg/dL Plasma Lactic Acid Taurus 0.6 L (0.7-2.0) mmol/L Magnesium (1.6-2.3) mg/dL Creatine Kinase (55-170) U/L Albumin (3.5-5.0) g/dL Thrombosis Risk Factor Assmnt - DVT/VTE Prophylaxis DVT/VTE Prophylaxis: Pharmacologic Prophylaxis ordered Assessment and Plan Assessment: Worsening shortness of breath, tachycardia and CT evidence of loculated effusion and right lower lobe infiltrate due to aspiration pneumonia with recent sputum cultures growing Pseudomonas aeruginosa. Recent admission with acute hypoxic respiratory failure due to aspiration pneumonia and seizures. Status post mechanical ventilation. Discharged to [facility] on 07/27/2020 Recent history of Proteus mirabilis urinary tract infection Multiple sclerosis with cognitive impairment, speech impairment moderate atrophy rigidity and chronic contractures and bedridden. Neurogenic bladder and chronic indwelling Stein catheter. Previous history of multiple admissions with aspiration pneumonia and UTIs including ESBL E. coli Chronic dysphagia on feeding. Continue with feeding. Seizure disorder Poor functional status at baseline. Patient is bedridden. DVT prophylaxis with Lovenox. Plan: Patient will be continued on IV hydration and antibiotics in the form of Zosyn. Patient was given a dose of ceftriaxone and azithromycin in the ER. Patient will be continued on PEG tube feeding. Continue with Keppra and continue seizure precautions. Aspiration precautions and head of the bed elevation to 45 degrees. Continue with the DVT prophylaxis and pulmonary is on board. Follow-up blood cultures. Discussed with the patient's sister at bedside in detail. Patients sister would like the patient to be transferred to [facility]. will transfer the patient if the other facility accepts him. Prognosis is guarded at this time. Time with Patient: Greater than 30
[2020-07-31] MEDS: METOPROLOL TARTRATE 25 MG TAB PEG/G-TUBE SCH ×3 (01:09→20:57)
[2020-07-31] MEDS: LACOSAMIDE 150 MG TABLET PEG/G-TUBE SCH ×3 (01:09→20:58)
[2020-07-31] MEDS: carBAMazepine 200 MG TAB PEG/G-TUBE SCH ×3 (01:10→20:57)
[2020-07-31] MEDS ORDERED: AZITHROMYCIN 500 MG in SODIUM CHLORIDE 0.9% 250 ML IVPB SCH (02:00)
[2020-07-31] MEDS: PIPERACILLIN-TAZOBACTAM 3.375 GM in SODIUM CHLORIDE 0.9% 100 ML IVPB SCH ×3 (04:49→19:38)
[2020-07-31] MEDS: BACLOFEN 10 MG TAB PEG/G-TUBE SCH ×3 (04:49→19:38)
[2020-07-31] MEDS: SODIUM CHLORIDE 0.9% 1,000 ML IV SCH ×2 (05:06→17:16)
[2020-07-31 07:22] LABS: Anisocytosis Slight; Basophils % (A) 0 %; Eosinophils # (A) 0.4 k/uL (0-0.7); Eosinophils % (A) 4 %; HCT 33.3 % (39.0-53.0); HGB 10.3 gm/dL (13.0-17.5); Hypochromasia Moderate; Lymphocytes # (A) 1.1 k/uL (1.0-4.8); Lymphocytes % (A) 11 %; MCH 28.1 pg (25.0-35.0); MCV 90.7 fL (80.0-100.0); Mean Platelet Volume 7.8; Monocytes # (A) 0.4 k/uL (0-1.0); Monocytes % (A) 5 %; Neutrophils # (A) 7.7 k/uL (1.3-7.7); Neutrophils % (A) 78 %; Platelet Count 336 k/uL (150-450); RBC 3.67 m/uL (4.30-5.90); RDW 16.1 % (11.5-15.5); WBC 9.8 k/uL (3.8-10.6)
[2020-07-31] MEDS: CHOLECALCIFEROL 1,000 UNIT TAB PEG/G-TUBE SCH (07:34)
[2020-07-31] MEDS: ASPIRIN 81 MG PEG/G-TUBE SCH (07:34)
[2020-07-31] MEDS: levETIRAcetam 500 MG TAB PEG/G-TUBE SCH ×2 (07:34→20:57)
[2020-07-31] MEDS: PANTOPRAZOLE SODIUM 40 MG GRANULE PKT PEG/G-TUBE SCH (07:35)
[2020-07-31] MEDS: ENOXAPARIN 40 MG/0.4 ML SYRINGE SQ SCH (07:35)
--- NOTE | 2020-07-31 08:49 | XR ---
EXAMINATION TYPE: XR chest 1V portable DATE OF EXAM: 07/31/2020 CLINICAL HISTORY: Difficulty breathing and pneumonia progress study. TECHNIQUE: Single AP portable semiupright view of the chest is obtained. COMPARISON: Chest x-ray and CT chest from 2 days earlier FINDINGS: Stable right-sided PICC line. Improved visualization of right lower lung masslike consolid ation due to increased inspiration on current study. Background chronic parenchymal changes bilateral ly with some additional patchy bibasilar linear scarring and/or atelectasis. Cardiac silhouette size is stable and upper limits of normal. Diffuse tracheal dilatation redemonstrated. Old fracture deform ity posterior lateral left fourth rib redemonstrated. IMPRESSION: Chronic changes with better visualization of right lower lobe masslike consolidation or p ossible rounded pneumonia. No significant change from more recent prior studies.
[2020-07-31 08:52] LABS: African American GFR (CKD) >90 (>60 ml/min/1.73 sqM); Anion Gap 8 mmol/L; Blood Urea Nitrogen 14 mg/dL (9-20); Calcium 8.4 mg/dL (8.4-10.2); Carbon Dioxide 20 mmol/L (22-30); Chloride 114 mmol/L (98-107); Glucose 90 mg/dL (74-99); Non-African American GFR(CKD) >90 (>60 ml/min/1.73 sqM); Potassium 3.5 mmol/L (3.5-5.1); Sodium 142 mmol/L (137-145)
[2020-07-31] MEDS ORDERED: CRANBERRY FRUIT PEG/G-TUBE SCH (09:00)
--- NOTE | 2020-07-31 11:52 | P.PN ---
Subjective Progress Note Date: 07/31/20 Principal diagnosis: Acute hypoxic respiratory failure secondary to chronic aspiration This is 60-year-old white male patient known to our practice from previous admissions for complications related to aspiration pneumonia. Patient has a known history of multiple sclerosis, chronic aspiration, chronic dysphagia, PEG tube placement, recurrent urinary tract infections, hypertension, severe cognitive impairment related to multiple sclerosis, bowel and urinary incontinence, neurogenic bladder, and previous episodes of pneumonia requiring intubation and mechanical ventilation. Patient was recently hospitalized in this hospital for an episode of aspiration related pneumonia, patient was intubated and on mechanical ventilator. There was also concern about seizures, and patient was followed by neurology, he is maintained on a combination of Keppra and Vimpat. Patient was successfully weaned and extubated from the mechanical ventilator, his sputum culture from previous admission showed evidence of pseudomonas aeruginosa Corynebacterium stratum, blood cultures were negative, and urine culture showed Proteus mirabilis. Patient was treated with Zosyn, he was stabilized, and he was discharged to [facility] on 07/27/2020 to finish a course of vancomycin and Zosyn. On 07/29/2020 patient was brought back to the emergency department per EMS for evaluation of shortness of breath. Chest x-ray showed oval density at the right lung base, possibly representing pseudotumor, probable basilar atelectasis. Of note pseudotumor in the right lung base was also seen on the chest x-ray from previous admission. CT chest showed a loculated mass along the right minor fissure likely related to pseudotumor, and it also showed consolidative peribronchial opacities in the right lower lobe with patchy groundglass infiltrates suspicious for pneumonia. Patient has been afebrile, room air pulse ox is 92-98%, hemodynamically stable. Patient has scattered rhonchi especially in the upper airway. Today's labs have been reviewed, showing white blood cell count of 17, hemoglobin of 10.4, d-dimer was 4.94, electrolytes were within normal limits, B1 is 22, creatinine 0.78, troponin was 0.032, proBNP was 814, patient appears to be in no acute distress, hemodynamically patient is stable, venous blood gas was reviewed, pH of 7.52, pCO2 of 29. She is seen on medical surgical floor, appears to be comfortable, and appears to be slightly tachypneic, but no distress. Patient is nonverbal, he is not able to provide any history, but he is awake, his tube feedings have been on hold since transfer from the [place] [facility], abdomen is soft, no nausea or vomiting, will restart his tube feedings. Antibiotic coverage was started on form of azithromycin and Rocephin, will restart Zosyn The patient is seen today at over 2019 in follow-up on the regular medical floor. He remains nonverbal. Appears to be resting comfortably in bed. Maintaining O2 saturations in the mid 90s on room air. He's afebrile. Hemodynamically stable. White count 9.8. Hemoglobin 10.3. Sodium 142. Potassium 3.5. Creatinine 0.85. Eng virus not detected. Currently on Zosyn. Blood cultures are revealing no growth. Previous sputum cultures positive for pseudomonas aeruginosa. Objective - Vital Signs Vital signs: Vital Signs Temp 97.8 F 07/31/20 07:00 Pulse 75 07/31/20 07:00 Resp 16 07/30/20 23:14 BP 142/86 07/31/20 07:00 Pulse Ox 96 07/31/20 07:00 Intake & Output 07/30/20 07/31/20 07/31/20 18:59 06:59 18:59 Intake Total 50 280 Output Total 250 900 Balance -200 -620 Weight 65.771 kg Intake: Intake, IV Titration 200 Amount Piperacillin-Tazobactam 3 100 .375 gm In Sodium Chloride 0.9% 100 ml @ 25 mls/hr IVPB Q8H [facility] Rx#: [id number] Sodium Chloride 0.9% 1, 100 000 ml @ 100 mls/hr IV . Q10H [facility] Rx#:[id number] Tube Feeding 20 80 Other 30 Output: Urine 250 900 Other: Voiding Method Indwelling Catheter Indwelling Catheter Indwelling Catheter - Exam GENERAL EXAM: Alert, nonverbal, 60-year-old male patient, cachectic currently on room air with a pulse ox of 96%, patient has a very weak cough HEAD: Normocephalic/atraumatic. EYES: Normal reaction of pupils, equal size. Conjunctiva pink, sclera white. NOSE: Clear with pink turbinates. THROAT: No erythema or exudates. NECK: No masses, no JVD, no thyroid enlargement, no adenopathy. CHEST: No chest wall deformity. Symmetrical expansion. LUNGS: Equal air entry with minimal scattered rhonchi CVS: Regular rate and rhythm, normal S1 and S2, no gallops, no murmurs, no rubs ABDOMEN: Soft, nontender. No hepatosplenomegaly, normal bowel sounds, no guarding or rigidity. PEG tube present in the left upper abdomen, feedings are resumed EXTREMITIES: No clubbing, no edema, no cyanosis, 2+ pulses and upper and lower extremities. Chronic contractures involving upper and lower extremities, muscle weakness and overall rigidity MUSCULOSKELETAL: Chronic contractures, muscle wasting SPINE: No scoliosis or deformity SKIN: No rashes CENTRAL NERVOUS SYSTEM: Alert, unable to assess orientation, patient is nonverbal, he is able to nod his head yes to simple questions - Labs CBC & Chem 7: 07/31/20 06:39 07/31/20 06:39 Labs: Abnormal Lab Results - Last 24 Hours (Table) 07/31/20 07/31/20 Range/Units 06:39 06:39 RBC 3.67 L (4.30-5.90) m/uL Hgb 10.3 L (13.0-17.5) gm/dL Hct 33.3 L (39.0-53.0) % RDW 16.1 H (11.5-15.5) % Chloride 114 H (98-107) mmol/L Carbon Dioxide 20 L (22-30) mmol/L Assessment and Plan Assessment: #1. Dyspnea, tachypnea, possibly related to chronic aspiration, and the patient is already on antibiotic treatment for recent history of aspiration pneumonia sputum cultures positive for pseudomonas aeruginosa. Patient recently discharged from the hospital on 07/27/2020 on Zosyn and vancomycin. Currently on Zosyn. #2. Recent admission for acute hypoxic respiratory failure related to aspiration pneumonia, and seizures. Patient required intubation and mechanical support during that admission, discharged to the [facility] on 07/27/2020 #3. Chronic aspiration, he is on PEG tube feedings #4. Recent history of Proteus mirabilis urinary tract infection #5. Multiple sclerosis with cognitive impairment, speech impairment, muscle atrophy, rigidity, chronic contractures, urinary and bowel incontinence, and gait impairment #6. Previous hospitalizations for recurrent aspiration pneumonia, and recurrent urinary tract infections related to gram-negative organisms and ESBL producing E. coli in the urine #7. Chronic dysphasia #8. Multiple hospitalizations related to history of gram negative sepsis #9. Poor baseline functional status, patient is bedridden, and resides in a [place] [facility] #10. History of seizure disorder Plan: The patient was seen and evaluated by Dr. Yanez Continue the current treatment plan Continue aspiration precautions We'll continue to follow I, the cosigning physician, performed a history & physical examination of the patient. Lungs sounds with few scattered rhonchi. Maintaining good O2 saturations in the 90s on room air. I discussed the assessment and plan of care with my nurse practitioner, Angela Hendrix. I attest to the above note as dictated by her.
[2020-08-01] MEDS: SODIUM CHLORIDE 0.9% 1,000 ML IV SCH ×2 (02:24→12:08)
[2020-08-01] MEDS: BACLOFEN 10 MG TAB PEG/G-TUBE SCH ×3 (02:30→18:57)
[2020-08-01 06:36] LABS: Anisocytosis Slight; Basophils % (A) 0 %; Eosinophils # (A) 0.5 k/uL (0-0.7); Eosinophils % (A) 5 %; HCT 33.7 % (39.0-53.0); HGB 10.4 gm/dL (13.0-17.5); Hypochromasia Moderate; Lymphocytes # (A) 1.2 k/uL (1.0-4.8); Lymphocytes % (A) 14 %; MCH 27.8 pg (25.0-35.0); MCV 89.8 fL (80.0-100.0); Mean Platelet Volume 7.4; Monocytes # (A) 0.3 k/uL (0-1.0); Monocytes % (A) 4 %; Neutrophils # (A) 6.6 k/uL (1.3-7.7); Neutrophils % (A) 75 %; Platelet Count 371 k/uL (150-450); RBC 3.75 m/uL (4.30-5.90); RDW 16.1 % (11.5-15.5); WBC 8.8 k/uL (3.8-10.6)
[2020-08-01] MEDS: CHOLECALCIFEROL 1,000 UNIT TAB PEG/G-TUBE SCH (07:13)
[2020-08-01] MEDS: ENOXAPARIN 40 MG/0.4 ML SYRINGE SQ SCH (07:14)
[2020-08-01] MEDS: levETIRAcetam 500 MG TAB PEG/G-TUBE SCH ×2 (07:14→20:29)
[2020-08-01] MEDS: PANTOPRAZOLE SODIUM 40 MG GRANULE PKT PEG/G-TUBE SCH (07:14)
[2020-08-01] MEDS: ASPIRIN 81 MG PEG/G-TUBE SCH (07:14)
[2020-08-01 10:24] LABS: Anion Gap 11.3 mmol/L (4.00-12.00); BUN/Creat Ratio 17.14 Ratio (12.00-20.00); Calcium 8.2 mg/dL (8.7-10.3); Carbon Dioxide 20.7 mmol/L (21.6-31.8); Non-African American GFR(CKD) 101.9 (60.0-200.0); Potassium 3.2 mmol/L (3.5-5.5)
--- NOTE | 2020-08-01 11:54 | P.PN ---
Subjective Progress Note Date: 08/01/20 Principal diagnosis: Acute hypoxic respiratory failure secondary to chronic aspiration This is 60-year-old white male patient known to our practice from previous admissions for complications related to aspiration pneumonia. Patient has a known history of multiple sclerosis, chronic aspiration, chronic dysphagia, PEG tube placement, recurrent urinary tract infections, hypertension, severe cognitive impairment related to multiple sclerosis, bowel and urinary incontinence, neurogenic bladder, and previous episodes of pneumonia requiring intubation and mechanical ventilation. Patient was recently hospitalized in this hospital for an episode of aspiration related pneumonia, patient was intubated and on mechanical ventilator. There was also concern about seizures, and patient was followed by neurology, he is maintained on a combination of Keppra and Vimpat. Patient was successfully weaned and extubated from the mechanical ventilator, his sputum culture from previous admission showed evidence of pseudomonas aeruginosa Corynebacterium stratum, blood cultures were negative, and urine culture showed Proteus mirabilis. Patient was treated with Zosyn, he was stabilized, and he was discharged to [facility] on 07/27/2020 to finish a course of vancomycin and Zosyn. On 07/29/2020 patient was brought back to the emergency department per EMS for evaluation of shortness of breath. Chest x-ray showed oval density at the right lung base, possibly representing pseudotumor, probable basilar atelectasis. Of note pseudotumor in the right lung base was also seen on the chest x-ray from previous admission. CT chest showed a loculated mass along the right minor fissure likely related to pseudotumor, and it also showed consolidative peribronchial opacities in the right lower lobe with patchy groundglass infiltrates suspicious for pneumonia. Patient has been afebrile, room air pulse ox is 92-98%, hemodynamically stable. Patient has scattered rhonchi especially in the upper airway. Today's labs have been reviewed, showing white blood cell count of 17, hemoglobin of 10.4, d-dimer was 4.94, electrolytes were within normal limits, B1 is 22, creatinine 0.78, troponin was 0.032, proBNP was 814, patient appears to be in no acute distress, hemodynamically patient is stable, venous blood gas was reviewed, pH of 7.52, pCO2 of 29. She is seen on medical surgical floor, appears to be comfortable, and appears to be slightly tachypneic, but no distress. Patient is nonverbal, he is not able to provide any history, but he is awake, his tube [facility], abdomen is soft, no nausea or vomiting, will restart his tube feedings. Antibiotic coverage was started on form of azithromycin and Rocephin, will restart Zosyn The patient is seen today at over 2019 in follow-up on the regular medical floor. He remains nonverbal. Appears to be resting comfortably in bed. Maintaining O2 saturations in the mid 90s on room air. He's afebrile. Hemodynamically stable. White count 9.8. Hemoglobin 10.3. Sodium 142. Potassium 3.5. Creatinine 0.85. Eng virus not detected. Currently on Zosyn. Blood cultures are revealing no growth. Previous sputum cultures positive for pseudomonas aeruginosa. The patient is seen today 08/01/2020 in follow-up on the regular medical floor. He is a bit more awake and alert. Seems to be tracking with his eyes. Remains nonverbal. Maintaining good O2 saturation in the mid 90s on room air. He's afebrile. Hemodynamically stable. White count 8.8. Hemoglobin 10.4. Sodium 1.2. Potassium 3.2. Creatinine 0.7. Continues with nutrition via the PEG tube with vital AF at 40 with a goal of 45. 0.9 normal saline at 100 ML's per hour. Objective - Vital Signs Vital signs: Vital Signs Temp 99.4 F 08/01/20 07:00 Pulse 78 08/01/20 07:00 Resp 22 08/01/20 07:00 BP 149/82 08/01/20 07:00 Pulse Ox 96 08/01/20 07:00 Intake & Output 07/31/20 08/01/20 08/01/20 19:59 06:59 18:59 Intake Total Output Total Balance Intake: Tube Feeding Output: Urine Other: Voiding Method Indwelling Catheter # Bowel Movements - Exam GENERAL EXAM: Alert, awake, tracking with his eyes, nonverbal, 60-year-old male patient, cachectic currently on room air with a pulse ox of 96%, HEAD: Normocephalic/atraumatic. EYES: Normal reaction of pupils, equal size. Conjunctiva pink, sclera white. NOSE: Clear with pink turbinates. THROAT: No erythema or exudates. NECK: No masses, no JVD, no thyroid enlargement, no adenopathy. CHEST: No chest wall deformity. Symmetrical expansion. LUNGS: Equal air entry with minimal scattered rhonchi CVS: Regular rate and rhythm, normal S1 and S2, no gallops, no murmurs, no rubs ABDOMEN: Soft, nontender. No hepatosplenomegaly, normal bowel sounds, no guardi ng or rigidity. PEG tube present in the left upper abdomen, feedings are resumed EXTREMITIES: No clubbing, no edema, no cyanosis, 2+ pulses and upper and lower extremities. Chronic contractures involving upper and lower extremities, muscle weakness and overall rigidity MUSCULOSKELETAL: Chronic contractures, muscle wasting SPINE: No scoliosis or deformity SKIN: No rashes CENTRAL NERVOUS SYSTEM: Alert, unable to assess orientation, patient is nonverbal, he is able to nod his head yes to simple questions - Labs CBC & Chem 7: 08/01/20 06:15 08/01/20 06:15 Labs: Abnormal Lab Results - Last 24 Hours (Table) 08/01/20 08/01/20 Range/Units 06:15 06:15 RBC 3.75 L (4.30-5.90) m/uL Hgb 10.4 L (13.0-17.5) gm/dL Hct 33.7 L (39.0-53.0) % RDW 16.1 H (11.5-15.5) % Potassium 3.2 L (3.5-5.5) mmol/L Chloride 110 H (96-109) mmol/L Carbon Dioxide 20.7 L (21.6-31.8) mmol/L Calcium 8.2 L (8.7-10.3) mg/dL Assessment and Plan Assessment: #1. Dyspnea, tachypnea, possibly related to chronic aspiration, and the patient is already on antibiotic treatment for recent history of aspiration pneumonia sputum cultures positive for pseudomonas aeruginosa. Patient recently discharged from the hospital on 07/27/2020 on Zosyn and vancomycin. Currently on Zosyn. #2. Recent admission for acute hypoxic respiratory failure related to aspiratio n pneumonia, and seizures. Patient required intubation and mechanical support during that admission, discharged to the [facility] on 07/27/2020 #3. Chronic aspiration, he is on PEG tube feedings #4. Recent history of Proteus mirabilis urinary tract infection #5. Multiple sclerosis with cognitive impairment, speech impairment, muscle atrophy, rigidity, chronic contractures, urinary and bowel incontinence, and gait impairment #6. Previous hospitalizations for recurrent aspiration pneumonia, and recurrent urinary tract infections related to gram-negative organisms and ESBL producing E. coli in the urine #7. Chronic dysphasia #8. Multiple hospitalizations related to history of gram negative sepsis #9. Poor baseline functional status, patient is bedridden, and [facility]. History of seizure disorder Plan: The patient was seen and evaluated by Dr. Yanez Continue the current treatment plan Continue aspiration precautions Probable transfer to [facility] in a.m. I, the cosigning physician, performed a history & physical examination of the patient. Lungs sounds with few scattered rhonchi. Maintaining good O2 saturations in the 90s on room air. I discussed the assessment and plan of care with my nurse practitioner, Angela Hendrix. I attest to the above note as dictated by her.
[2020-08-01] MEDS: LACOSAMIDE 150 MG TABLET PEG/G-TUBE SCH ×2 (12:06→22:33)
[2020-08-01] MEDS: METOPROLOL TARTRATE 25 MG TAB PEG/G-TUBE SCH ×2 (12:07→22:33)
[2020-08-01] MEDS: carBAMazepine 200 MG TAB PEG/G-TUBE SCH ×2 (12:07→22:33)
[2020-08-01] MEDS ORDERED: Potassium Replacement Protocol 1 EACH MISC MISCELLANE PRN ×2 (14:32→14:50)
[2020-08-01] MEDS: POTASSIUM CHLORIDE ER 20 MEQ TAB.ER PO SCH ×2 (15:08→16:10)
--- NOTE | 2020-08-01 23:36 | P.PN ---
Subjective Progress Note Date: 07/31/20 Patient is a 60-year-old male with a known history of multiple sclerosis at age 20, cognitive impairment, dysphagia/n.p.o. with PEG tube, contractures, dysarthria, neurogenic bladder status post chronic indwelling Stein catheter, multiple pneumonias, seizure disorder and recent hospitalization with seizure s/pneumonia/UTI with sepsis/respiratory failure/status post vent was discharged to [facility] on 07/27/2020 to finish the course of antibiotics in the form of vancomycin and Zosyn. Patient was recently treated at [facility]. On 07/29/2020 patient was brought back to the hospital by EMS for evaluation of shortness of breath. Patient was not febrile on admission. Patient had CT chest which showed loculated mass along the right minor fissure. Represents typical location for loculated pleural effusion. However the mass measures soft tissue density. DD include loculated hemorrhagic proteinaceous pleural fluid versus mass extending along the pulmonary fissure. Consolidative peribronchial opacities in the right lower lobe with patchy groundglass infiltrates throughout the remainder of the lungs. Suspicious for pneumonia. EKG showed normal sinus rhythm Laboratory data showed WBC 17.0, hemoglobin 10.4, RDW 16.2 and absolute neutrophil count 15.1 Lymphocytes 0.8 and Covid PCR negative. D-dimer is 4.94 BUN 2020 creatinine 0.78 Sodium 139, potassium 4.1 bicarb is 24. NT proBNP 814 Patient was given a dose of ceftriaxone and azithromycin in the ER. Currently patient was started on Zosyn. 07/31/20 Patient is currently resting in the bed comfortably. Patient is nonverbal at baseline. Saturating well on room air. Leukocytosis resolved. Hemoglobin 10.3 and sodium 142 creatinine 0.85 Cultures showed no growth so far. Patient is being continued on Zosyn as per pr evious sputum cultures positive for Pseudomonas aeruginosa. Complete review of systems could not be obtained from the patient. Current medications reviewed. Objective - Vital Signs Vital signs: Vital Signs Temp 98.1 F 07/31/20 19:18 Pulse 77 07/31/20 19:18 Resp 18 07/31/20 19:18 BP 147/87 07/31/20 19:18 Pulse Ox 95 07/31/20 19:18 Intake & Output 07/31/20 07/31/20 08/01/20 06:59 18:59 05:59 Intake Total 280 30 Output Total 900 1200 Balance -620 -1170 Intake: Intake, IV Titration 200 Amount Piperacillin-Tazobactam 3 100 .375 gm In Sodium Chloride 0.9% 100 ml @ 25 mls/hr IVPB Q8H [facility] Rx#: [id number] Sodium Chloride 0.9% 1, 100 000 ml @ 100 mls/hr IV . Q10H [facility] Rx#:[id number] Tube Feeding 80 30 Output: Urine 900 1200 Other: Voiding Method Indwelling Catheter Indwelling Catheter # Bowel Movements 1 - Exam PHYSICAL EXAMINATION: Patient is lying in the bed comfortably, no acute distress, Patient does not respond to verbal stimuli. HEENT: Normocephalic. Neck is supple. Pupils reactive. Nostrils clear. Oral cavity is moist. Ears reveal no drainage. Neck reveals no JVD, carotid bruits, or thyromegaly. CHEST EXAMINATION: Trachea is central. Symmetrical expansion. Bibasilar diminished air entry and right sided coarse crackles. CARDIAC: Normal S1, S2 with no gallops. No murmurs ABDOMEN: Soft. Bowel sounds present, peg tub ein place. No organomegaly. No abdominal bruits. Extremities: reveal no edema. No clubbing or cyanosis Neurologically Patient is nonverbal and bedridden with muscle wasting and contractures. Skin: No rash Psychiatric: Could not be assessed at this time. Musculoskeletal: Patient does have contractures of bilateral upper extremities and lower extremities.. - Labs CBC & Chem 7: 08/01/20 06:15 08/01/20 06:15 Labs: Abnormal Lab Results - Last 24 Hours (Table) 07/31/20 07/31/20 Range/Units 06:39 06:39 RBC 3.67 L (4.30-5.90) m/uL Hgb 10.3 L (13.0-17.5) gm/dL Hct 33.3 L (39.0-53.0) % RDW 16.1 H (11.5-15.5) % Chloride 114 H (98-107) mmol/L Carbon Dioxide 20 L (22-30) mmol/L Assessment and Plan Assessment: Worsening shortness of breath, tachycardia and CT evidence of loculated effusion and right lower lobe infiltrate due to aspiration pneumonia with recent sputum cultures growing Pseudomonas aeruginosa. Recent admission with acute hypoxic respiratory failure due to aspiration pneumonia and seizures. Status post mechanical ventilation. Discharged to [facility] on 07/27/2020 Recent history of Proteus mirabilis urinary tract infection Multiple sclerosis with cognitive impairment, speech impairment moderate atrophy rigidity and chronic contractures and bedridden. Neurogenic bladder and chronic indwelling Stein catheter. Previous history of multiple admissions with aspiration pneumonia and UTIs including ESBL E. coli Chronic dysphagia on feeding. Continue with feeding. Seizure disorder Poor functional status at baseline. Patient is bedridden. DVT prophylaxis with Lovenox. Plan: Patient will be continued on IV hydration and antibiotics in the form of Zosyn. Patient was given a dose of ceftriaxone and azithromycin in the ER. Patient will be continued on PEG tube feeding. Continue with Keppra and continue seizure precautions. Aspiration precautions and head of the bed elevation to 45 degrees. Continue with the DVT prophylaxis and pulmonary is on board. Follow-up blood cultures. Patient was not improved to transfer to [facility]. Discussed with the transfer team. Prognosis is guarded at this time. Time with Patient: Greater than 30
--- NOTE | 2020-08-01 23:38 | P.PN ---
Subjective Progress Note Date: 08/01/20 Principal diagnosis: Worsening shortness of breath, tachycardia and CT evidence of loculated effusion and right lower lobe infiltrate due to aspiration pneumonia with recent sputum cultures growing Pseudomonas aeruginosa. Patient is a 60-year-old male with a known history of multiple sclerosis at age 20, cognitive impairment, dysphagia/n.p.o. with PEG tube, contractures, dysart hria, neurogenic bladder status post chronic indwelling Stein catheter, multiple pneumonias, seizure disorder and recent hospitalization with seizures/pneumonia/UTI with sepsis/respiratory failure/status post vent was discharged to [facility] on 07/27/2020 to finish the course of antibiotics in the form of vancomycin and Zosyn. Patient was recently treated at [facility]. On 07/29/2020 patient was brought back to the hospital by EMS for evaluation of shortness of breath. Patient was not febrile on admission. Patient had CT chest which showed loculated mass along the right minor fissure. Represents typical location for loculated pleural effusion. However the mass measures soft tissue density. DD include loculated hemorrhagic proteinaceous pleural fluid versus mass extending along the pulmonary fissure. Consolidative peribronchial opacities in the right lower lobe with patchy groundglass infiltrates throughout the remainder of the lungs. Suspicious for pneumonia. EKG showed normal sinus rhythm Laboratory data showed WBC 17.0, hemoglobin 10.4, RDW 16.2 and absolute neutrophil count 15.1 Lymphocytes 0.8 and Covid PCR negative. D-dimer is 4.94 BUN 2020 creatinine 0.78 Sodium 139, potassium 4.1 bicarb is 24. NT proBNP 814 Patient was given a dose of ceftriaxone and azithromycin in the ER. Currently patient was started on Zosyn. 07/31/20 Patient is currently resting in the bed comfortably. Patient is nonverbal at baseline. Saturating well on room air. Leukocytosis resolved. Hemoglobin 10.3 and sodium 142 creatinine 0.85 Cultures showed no growth so far. Patient is being continued on Zosyn as per previous sputum cultures positive for Pseudomonas aeruginosa. 08/01/2020 Patient is currently lying in the bed comfortably. Patient is nonverbal. Satur ating well on room air when white count is stable remaining laboratory data reviewed. Patient has been afebrile and saturating well on room air.And will discharge back to rehab in the next 24 hours. Complete review of systems could not be obtained from the patient. Current medications reviewed. Objective - Vital Signs Vital signs: Vital Signs Temp 98.3 F 08/01/20 19:22 Pulse 76 08/01/20 19:22 Resp 18 08/01/20 19:22 BP 151/80 08/01/20 19:22 Pulse Ox 95 08/01/20 19:22 Intake & Output 08/01/20 08/01/20 08/02/20 06:59 18:59 06:59 Intake Total Output Total 1700 Balance -1700 Intake: Tube Feeding Output: Urine 1700 Other: Voiding Method Indwelling Catheter - Labs CBC & Chem 7: 08/01/20 06:15 08/01/20 06:15 Labs: Abnormal Lab Results - Last 24 Hours (Table) 08/01/20 08/01/20 Range/Units 06:15 06:15 RBC 3.75 L (4.30-5.90) m/uL Hgb 10.4 L (13.0-17.5) gm/dL Hct 33.7 L (39.0-53.0) % RDW 16.1 H (11.5-15.5) % Potassium 3.2 L (3.5-5.5) mmol/L Chloride 110 H (96-109) mmol/L Carbon Dioxide 20.7 L (21.6-31.8) mmol/L Calcium 8.2 L (8.7-10.3) mg/dL Assessment and Plan Assessment: Worsening shortness of breath, tachycardia and CT evidence of loculated effusion and right lower lobe infiltrate due to aspiration pneumonia with recent sputum cultures growing Pseudomonas aeruginosa. Recent admission with acute hypoxic respiratory failure due to aspiration pneumonia and seizures. Status post mechanical ventilation. Discharged to [facility] on 07/27/2020 Recent history of Proteus mirabilis urinary tract infection Multiple sclerosis with cognitive impairment, speech impairment moderate atrophy rigidity and chronic contractures and bedridden. Neurogenic bladder and chronic indwelling Stein catheter. Previous history of multiple admissions with aspiration pneumonia and UTIs including ESBL E. coli Chronic dysphagia on feeding. Continue with feeding. Seizure disorder Poor functional status at baseline. Patient is bedridden. DVT prophylaxis with Lovenox. Plan: Patient will be continued on IV hydration and antibiotics in the form of Zosyn. Patient was given a dose of ceftriaxone and azithromycin in the ER. Patient will be continued on PEG tube feeding. Continue with Keppra and continue seizure precautions. Aspiration precautions and head of the bed elevation to 45 degrees. Continue with the DVT prophylaxis and pulmonary is on board. Follow-up blood cultures. Patient was not improved to transfer to [facility]. Discussed with the transfer team. Prognosis is guarded at this time. Time with Patient: Greater than 30
[2020-08-02] MEDS: BACLOFEN 10 MG TAB PEG/G-TUBE SCH ×3 (02:44→20:23)
[2020-08-02] MEDS: PANTOPRAZOLE SODIUM 40 MG GRANULE PKT PEG/G-TUBE SCH (08:12)
[2020-08-02] MEDS: levETIRAcetam 500 MG TAB PEG/G-TUBE SCH ×2 (08:13→20:22)
[2020-08-02 08:17] LABS: Anisocytosis Slight; HCT 35.3 % (39.0-53.0); HGB 11.2 gm/dL (13.0-17.5); Hypochromasia Slight; MCH 27.8 pg (25.0-35.0); MCHC 31.6 g/dL (31.0-37.0); Mean Platelet Volume 8.5; Platelet Count 408 k/uL (150-450); RBC 4.01 m/uL (4.30-5.90); RDW 16.2 % (11.5-15.5); WBC 8.4 k/uL (3.8-10.6)
[2020-08-02] MEDS: CHOLECALCIFEROL 1,000 UNIT TAB PEG/G-TUBE SCH (08:17)
[2020-08-02] MEDS: ASPIRIN 81 MG PEG/G-TUBE SCH (08:17)
[2020-08-02] MEDS: ENOXAPARIN 40 MG/0.4 ML SYRINGE SQ SCH (08:17)
[2020-08-02 09:17] LABS: African American GFR (CKD) 125.8 (60.0-200.0); Anion Gap 9.3 mmol/L (4.00-12.00); BUN/Creat Ratio 21.67 Ratio (12.00-20.00); Calcium 8.5 mg/dL (8.7-10.3); Carbon Dioxide 20.7 mmol/L (21.6-31.8); Non-African American GFR(CKD) 108.5 (60.0-200.0); Potassium 3.9 mmol/L (3.5-5.5)
[2020-08-02 09:25] LABS: Band Neutrophils % 1 %; Basophils # (M) 0.08 k/uL (0-0.2); Eosinophils # (M) 0.42 k/uL (0-0.7); Lymphocytes # (M) 1.68 k/uL (1.0-4.8); Monocytes # (M) 0.42 k/uL (0-1.0); Myelocytes # (M) 0.08 k/uL (0); Myelocytes % 1 %; Neutrophils % (M) 69 %; Nucleated Red Blood Cells 0 /100 WBC (0-0); Total Cells Counted 200
[2020-08-02 09:26] LABS: Poikilocytosis (M) Present; Polychromasia Present
[2020-08-02] MEDS: carBAMazepine 200 MG TAB PEG/G-TUBE SCH (10:34)
[2020-08-02] MEDS: METOPROLOL TARTRATE 25 MG TAB PEG/G-TUBE SCH (10:34)
[2020-08-02] MEDS: SODIUM CHLORIDE 0.9% 1,000 ML IV SCH (10:37)
[2020-08-02] MEDS: LACOSAMIDE 150 MG TABLET PEG/G-TUBE SCH (10:41)
--- NOTE | 2020-08-02 13:38 | P.PN ---
Subjective Progress Note Date: 08/02/20 Principal diagnosis: Acute hypoxic respiratory failure second to chronic aspiration This is 60-year-old white male patient known to our practice from previous admissions for complications related to aspiration pneumonia. Patient has a known history of multiple sclerosis, chronic aspiration, chronic dysphagia, PEG tube placement, recurrent urinary tract infections, hypertension, severe cognitive impairment related to multiple sclerosis, bowel and urinary incontinence, neurogenic bladder, and previous episodes of pneumonia requiring intubation and mechanical ventilation. Patient was recently hospitalized in this hospital for an episode of aspiration related pneumonia, patient was intubated and on mechanical ventilator. There was also concern about seizures, and patient was followed by neurology, he is maintained on a combination of Keppra and Vimpat. Patient was successfully weaned and extubated from the mechanical ventilator, his sputum culture from previous admission showed evidence of pseudomonas aeruginosa Corynebacterium stratum, blood cultures were negative, and urine culture showed Proteus mirabilis. Patient was treated with Zosyn, he was stabilized, and he was discharged to [facility] on 07/27/2020 to finish a course of vancomycin and Zosyn. On 07/29/2020 patient was brought back to the emergency department per EMS for evaluation of shortness of breath. Chest x-ray showed oval density at the right lung base, possibly representing pseudotumor, probable basilar atelectasis. Of note pseudotumor in the right lung base was also seen on the chest x-ray from previous admission. CT chest showed a loculated mass along the right minor fissure likely related to pseudotumor, and it also showed consolidative peribronchial opacities in the right lower lobe with patchy groundglass infiltrates suspicious for pneumonia. Patient has been afebrile, room air pulse ox is 92-98%, hemodynamically stable. Patient has scattered rhonchi especially in the upper airway. Today's labs have been reviewed, showing white blood cell count of 17, hemoglobin of 10.4, d-dimer was 4.94, electrolytes were within normal limits, B1 is 22, creatinine 0.78, troponin was 0.032, proBNP was 814, patient appears to be in no acute distress, hemodynamically patient is stable, venous blood gas was reviewed, pH of 7.52, pCO2 of 29. She is seen on medical surgical floor, appears to be comfortable, and appears to be slightly tachypneic, but no distress. Patient is nonverbal, he is not able to provide any history, but he is awake, his tube feedings have been on hold since transfer from the half-way, abdomen is soft, no nausea or vomiting, will restart his tube feedings. Antibiotic coverage was started on form of azithromycin and Rocephin, will restart Zosyn The patient is seen today at over 2019 in follow-up on the regular medical floor. He remains nonverbal. Appears to be resting comfortably in bed. Maintaining O2 saturations in the mid 90s on room air. He's afebrile. Hemodynamically stable. White count 9.8. Hemoglobin 10.3. Sodium 142. Potassium 3.5. Creatinine 0.85. Eng virus not detected. Currently on Zosyn. Blood cultures are revealing no growth. Previous sputum cultures positive for pseudomonas aeruginosa. The patient is seen today 08/01/2020 in follow-up on the regular medical floor. He is a bit more awake and alert. Seems to be tracking with his eyes. Remains nonverbal. Maintaining good O2 saturation in the mid 90s on room air. He's afebrile. Hemodynamically stable. White count 8.8. Hemoglobin 10.4. Sodium 1.2. Potassium 3.2. Creatinine 0.7. Continues with nutrition via the PEG tube with vital AF at 40 with a goal of 45. 0.9 normal saline at 100 ML's per hour. On 08/02/2020 patient seen in follow-up on esophageal medical surgical floor. He is resting comfortably in bed, appears to be in no acute distress, room air pulse ox is 95-96%, hemodynamically patient has been stable, patient has been afebrile since admission. Breathing comfortably, he is awake, mentation seems to be at baseline, he is nonverbal. Appears to be in no acute distress, his COVID 19 PCR was negative. Patient has completed his Zosyn antibiotics, he is tolerating tube feedings. Vital signs have been stable. Objective - Vital Signs Vital signs: Vital Signs Temp 97.6 F 08/02/20 07:00 Pulse 72 08/02/20 07:00 Resp 18 08/02/20 07:00 BP 159/87 08/02/20 07:00 Pulse Ox 95 08/02/20 07:00 Intake & Output 11/10/2008/02/20 08/02/20 18:59 06:59 18:59 Intake Total 1915 720 Output Total 1700 1650 Balance -1700 266 720 Intake: Tube Feeding 1915 720 Output: Urine 0 1650 Other: Voiding Method Indwelling Catheter Indwelling Catheter - Exam GENERAL EXAM: Alert, nonverbal, 60-year-old white male, room air pulse ox 95%, patient has a very weak cough HEAD: Normocephalic/atraumatic. EYES: Normal reaction of pupils, equal size. Conjunctiva pink, sclera white. NOSE: Clear with pink turbinates. THROAT: No erythema or exudates. NECK: No masses, no JVD, no thyroid enlargement, no adenopathy. CHEST: No chest wall deformity. Symmetrical expansion. LUNGS: Equal air entry with minimal rhonchi CVS: Regular rate and rhythm, normal S1 and S2, no gallops, no murmurs, no rubs ABDOMEN: Soft, nontender. No hepatosplenomegaly, normal bowel sounds, no guarding or rigidity. PEG tube present in the left upper abdomen, feedings are on hold right now EXTREMITIES: No clubbing, no edema, no cyanosis, 2+ pulses and upper and lower extremities. Chronic contractures involving upper and lower extremities, muscle weakness and overall rigidity MUSCULOSKELETAL: Chronic contractures, muscle wasting SPINE: No scoliosis or deformity SKIN: No rashes CENTRAL NERVOUS SYSTEM: Alert, unable to assess orientation, patient is nonverbal, he is able to nod his head yes to simple questions - Labs CBC & Chem 7: 08/02/20 06:59 08/02/20 06:17 Labs: Abnormal Lab Results - Last 24 Hours (Table) 08/02/20 08/02/20 Range/Units 06:17 06:59 RBC 4.01 L (4.30-5.90) m/uL Hgb 11.2 L (13.0-17.5) gm/dL Hct 35.3 L (39.0-53.0) % RDW 16.2 H (11.5-15.5) % Myelocytes # (Manual) 0.08 H (0) k/uL Carbon Dioxide 20.7 L (21.6-31.8) mmol/L BUN/Creatinine Ratio 21.67 H (12.00-20.00) Ratio Calcium 8.5 L (8.7-10.3) mg/dL Assessment and Plan Plan: Assessment: #1. Dyspnea, tachypnea, possibly related to chronic aspiration, and the patient is already on antibiotic treatment for recent history of aspiration pneumonia sputum cultures positive for pseudomonas aeruginosa. Patient recently discharged from the hospital on 07/27/2020 on Zosyn and vancomycin #2. Recent admission for acute hypoxic respiratory failure related to aspiration pneumonia, and seizures. Patient required intubation and mechanical support during that admission, discharged to the [facility] on 07/27/2020 #3. Chronic aspiration, he is on PEG tube feedings #4. Recent history of Proteus mirabilis urinary tract infection #5. Multiple sclerosis with cognitive impairment, speech impairment, muscle atrophy, rigidity, chronic contractures, urinary and bowel incontinence, and gait impairment #6. Previous hospitalizations for recurrent aspiration pneumonia, and recurrent urinary tract infections related to gram-negative organisms and ESBL producing E. coli in the urine #7. Chronic dysphasia #8. Multiple hospitalizations related to history of gram negative sepsis #9. Poor baseline functional status, patient is bedridden, and resides in a half-way #10. History of seizure disorder Plan: Patient has remained stable, no fever or chills, he is on room air, maintain aspiration precautions, he has completed a course of antibiotics, no fever or chills, he is tolerating tube feedings, from pulmonary perspective patient is stable for discharge to [facility] today. I performed a history & physical examination of the patient and discussed their management with my nurse practitioner, Naheed Pace. I reviewed the nurse practitioner's note and agree with the documented findings and plan of care. Lung sounds are positive for scattered rhonchi. The findings and the impression was discussed with the patient. I attest to the documentation by the nurse practitioner. Time with Patient: Less than 30
[2020-08-03] MEDS: METOPROLOL TARTRATE 25 MG TAB PEG/G-TUBE SCH ×3 (00:05→22:18)
[2020-08-03] MEDS: LACOSAMIDE 150 MG TABLET PEG/G-TUBE SCH ×3 (00:05→22:19)
[2020-08-03] MEDS: carBAMazepine 200 MG TAB PEG/G-TUBE SCH ×3 (00:06→22:18)
[2020-08-03] MEDS: BACLOFEN 10 MG TAB PEG/G-TUBE SCH ×3 (04:16→20:21)
[2020-08-03] MEDS: ASPIRIN 81 MG PEG/G-TUBE SCH (07:04)
[2020-08-03] MEDS: CHOLECALCIFEROL 1,000 UNIT TAB PEG/G-TUBE SCH (07:04)
[2020-08-03] MEDS: ENOXAPARIN 40 MG/0.4 ML SYRINGE SQ SCH (07:04)
[2020-08-03] MEDS: PANTOPRAZOLE SODIUM 40 MG GRANULE PKT PEG/G-TUBE SCH (07:05)
[2020-08-03] MEDS: levETIRAcetam 500 MG TAB PEG/G-TUBE SCH ×2 (07:05→22:18)
[2020-08-03] MEDS: ALBUTEROL NEBULIZED 2.5 MG/3 ML INHALATION PRN (08:25)
[2020-08-03] MEDS: SODIUM CHLORIDE 0.9% 1,000 ML IV SCH (11:35)
[2020-08-03 12:15] LABS: Anisocytosis Slight; Basophils # (A) 0.1 k/uL (0-0.2); Basophils % (A) 1 %; Eosinophils # (A) 0.4 k/uL (0-0.7); Eosinophils % (A) 5 %; HGB 11.4 gm/dL (13.0-17.5); Hypochromasia Moderate; Lymphocytes # (A) 1.3 k/uL (1.0-4.8); Lymphocytes % (A) 16 %; MCH 27.8 pg (25.0-35.0); MCHC 30.7 g/dL (31.0-37.0); MCV 90.4 fL (80.0-100.0); Mean Platelet Volume 7.4; Monocytes # (A) 0.4 k/uL (0-1.0); Monocytes % (A) 5 %; Neutrophils # (A) 6.1 k/uL (1.3-7.7); Neutrophils % (A) 73 %; Platelet Count 392 k/uL (150-450); RBC 4.09 m/uL (4.30-5.90); RDW 16.1 % (11.5-15.5); WBC 8.4 k/uL (3.8-10.6)
[2020-08-03 12:30] LABS: African American GFR (CKD) >90 (>60 ml/min/1.73 sqM); Anion Gap 5 mmol/L; Blood Urea Nitrogen 18 mg/dL (9-20); Calcium 8.6 mg/dL (8.4-10.2); Carbon Dioxide 21 mmol/L (22-30); Chloride 110 mmol/L (98-107); Glucose 102 mg/dL (74-99); Non-African American GFR(CKD) >90 (>60 ml/min/1.73 sqM); Potassium 4.3 mmol/L (3.5-5.1); Sodium 136 mmol/L (137-145)
[2020-08-04] MEDS: BACLOFEN 10 MG TAB PEG/G-TUBE SCH ×2 (03:26→13:24)
[2020-08-04] MEDS: ENOXAPARIN 40 MG/0.4 ML SYRINGE SQ SCH (09:29)
[2020-08-04] MEDS: CHOLECALCIFEROL 1,000 UNIT TAB PEG/G-TUBE SCH (09:29)
[2020-08-04] MEDS: levETIRAcetam 500 MG TAB PEG/G-TUBE SCH (09:29)
[2020-08-04] MEDS: PANTOPRAZOLE SODIUM 40 MG GRANULE PKT PEG/G-TUBE SCH (09:29)
[2020-08-04] MEDS: ASPIRIN 81 MG PEG/G-TUBE SCH (09:29)
[2020-08-04] MEDS: carBAMazepine 200 MG TAB PEG/G-TUBE SCH (13:23)
[2020-08-04] MEDS: LACOSAMIDE 150 MG TABLET PEG/G-TUBE SCH (13:23)
[2020-08-04] MEDS: METOPROLOL TARTRATE 25 MG TAB PEG/G-TUBE SCH (13:24)
--- NOTE | 2020-08-04 14:44 | P.PN ---
Subjective Progress Note Date: 08/02/20 Principal diagnosis: Worsening shortness of breath, tachycardia and CT evidence of loculated effusion and right lower lobe infiltrate due to aspiration pneumonia with recent sputum cultures growing Pseudomonas aeruginosa. Patient is a 60-year-old male with a known history of multiple sclerosis at age 20, cognitive impairment, dysphagia/n.p.o. with PEG tube, contractures, dysart hria, neurogenic bladder status post chronic indwelling Stein catheter, multiple pneumonias, seizure disorder and recent hospitalization with seizures/pneumonia/UTI with sepsis/respiratory failure/status post vent was discharged to [facility] on 07/27/2020 to finish the course of antibiotics in the form of vancomycin and Zosyn. Patient was recently treated at [facility]. On 07/29/2020 patient was brought back to the hospital by EMS for evaluation of shortness of breath. Patient was not febrile on admission. Patient had CT chest which showed loculated mass along the right minor fissure. Represents typical location for loculated pleural effusion. However the mass measures soft tissue density. DD include loculated hemorrhagic proteinaceous pleural fluid versus mass extending along the pulmonary fissure. Consolidative peribronchial opacities in the right lower lobe with patchy groundglass infiltrates throughout the remainder of the lungs. Suspicious for pneumonia. EKG showed normal sinus rhythm Laboratory data showed WBC 17.0, hemoglobin 10.4, RDW 16.2 and absolute neutrophil count 15.1 Lymphocytes 0.8 and Covid PCR negative. D-dimer is 4.94 BUN 2020 creatinine 0.78 Sodium 139, potassium 4.1 bicarb is 24. NT proBNP 814 Patient was given a dose of ceftriaxone and azithromycin in the ER. Currently patient was started on Zosyn. 07/31/20 Patient is currently resting in the bed comfortably. Patient is nonverbal at baseline. Saturating well on room air. Leukocytosis resolved. Hemoglobin 10.3 and sodium 142 creatinine 0.85 Cultures showed no growth so far. Patient is being continued on Zosyn as per previous sputum cultures positive for Pseudomonas aeruginosa. 08/01/2020 Patient is currently lying in the bed comfortably. Patient is nonverbal. Satur ating well on room air when white count is stable remaining laboratory data reviewed. Patient has been afebrile and saturating well on room air.And will discharge back to rehab in the next 24 hours. Complete review of systems could not be obtained from the patient. 08/02/2020 Patient is currently resting in the bed comfortably. Awake alert and follows eye contact but could not come and get. Patient is currently on room air and saturating well. Hemodynamically stable. Leukocytosis is resolved. Patient is off antibiotics and no episodes of fever overnight. Patient completed antibiotic course with Zosyn. Stable to be transferred back to rehab. Current medications reviewed. Objective - Vital Signs Vital signs: Vital Signs Temp 97.8 F 08/02/20 13:41 Pulse 66 08/02/20 19:20 Resp 20 08/02/20 19:20 BP 138/85 08/02/20 13:41 Pulse Ox 94 L 08/02/20 13:41 Intake & Output 08/02/20 08/02/20 08/03/20 06:59 18:59 06:59 Intake Total 1916 900 240 Output Total 1650 500 Balance 266 400 240 Weight 65.771 kg Intake: Intake, IV Titration 60 Amount Sodium Chloride 0.9% 1, 60 000 ml @ 20 mls/hr IV . Q24H [facility] Rx#:[id number] Tube Feeding 1916 900 180 Output: Urine 1650 500 Other: Voiding Method Indwelling Catheter Indwelling Catheter # Bowel Movements 1 - Exam PHYSICAL EXAMINATION: Patient is lying in the bed comfortably, no acute distress, Patient does not respond to verbal stimuli. HEENT: Normocephalic. Neck is supple. Pupils reactive. Nostrils clear. Oral cavity is moist. Ears reveal no drainage. Neck reveals no JVD, carotid bruits, or thyromegaly. CHEST EXAMINATION: Trachea is central. Symmetrical expansion. Bibasilar diminished air entry and right sided coarse crackles. CARDIAC: Normal S1, S2 with no gallops. No murmurs ABDOMEN: Soft. Bowel sounds present, peg tub ein place. No organomegaly. No abdominal bruits. Extremities: reveal no edema. No clubbing or cyanosis Neurologically Patient is nonverbal and bedridden with muscle wasting and contractures. Skin: No rash Psychiatric: Could not be assessed at this time. Musculoskeletal: Patient does have contractures of bilateral upper extremities and lower extremities.. - Labs CBC & Chem 7: 08/03/20 11:11 08/03/20 11:11 Labs: Abnormal Lab Results - Last 24 Hours (Table) 08/02/20 08/02/20 Range/Units 06:17 06:59 RBC 4.01 L (4.30-5.90) m/uL Hgb 11.2 L (13.0-17.5) gm/dL Hct 35.3 L (39.0-53.0) % RDW 16.2 H (11.5-15.5) % Myelocytes # (Manual) 0.08 H (0) k/uL Carbon Dioxide 20.7 L (21.6-31.8) mmol/L BUN/Creatinine Ratio 21.67 H (12.00-20.00) Ratio Calcium 8.5 L (8.7-10.3) mg/dL Assessment and Plan Assessment: Worsening shortness of breath, tachycardia and CT evidence of loculated effusion and right lower lobe infiltrate due to aspiration pneumonia with recent sputum cultures growing Pseudomonas aeruginosa. Completed antibiotic course with Zosyn. Recent admission with acute hypoxic respiratory failure due to aspiration pneumonia and seizures. Status post mechanical ventilation. Discharged to [facility] on 07/27/2020 Recent history of Proteus mirabilis urinary tract infection Multiple sclerosis with cognitive impairment, speech impairment moderate atrophy rigidity and chronic contractures and bedridden. Neurogenic bladder and chronic indwelling Stein catheter. Previous history of multiple admissions with aspiration pneumonia and UTIs including ESBL E. coli Chronic dysphagia on feeding. Continue with feeding. Seizure disorder Poor functional status at baseline. Patient is bedridden. DVT prophylaxis with Lovenox. Plan: Patient will be continued on IV hydration and completed antibiotics in the form of Zosyn. Patient was given a dose of ceftriaxone and azithromycin in the ER. Patient will be continued on PEG tube feeding. Continue with Keppra and continue seizure precautions. Aspiration precautions and head of the bed elevation to 45 degrees. Continue with the DVT prophylaxis and pulmonary is on board. Negative blood cultures so far. Prognosis is guarded at this time.
--- NOTE | 2020-08-04 14:45 | P.PN ---
Subjective Progress Note Date: 08/03/20 Principal diagnosis: Worsening shortness of breath, tachycardia and CT evidence of loculated effusion and right lower lobe infiltrate due to aspiration pneumonia with recent sputum cultures growing Pseudomonas aeruginosa. Patient is a 60-year-old male with a known history of multiple sclerosis at age 20, cognitive impairment, dysphagia/n.p.o. with PEG tube, contractures, dysart hria, neurogenic bladder status post chronic indwelling Stein catheter, multiple pneumonias, seizure disorder and recent hospitalization with seizures/pneumonia/UTI with sepsis/respiratory failure/status post vent was discharged to [facility] on 07/27/2020 to finish the course of antibiotics in the form of vancomycin and Zosyn. Patient was recently treated at [facility]. On 07/29/2020 patient was brought back to the hospital by EMS for evaluation of shortness of breath. Patient was not febrile on admission. Patient had CT chest which showed loculated mass along the right minor fissure. Represents typical location for loculated pleural effusion. However the mass measures soft tissue density. DD include loculated hemorrhagic proteinaceous pleural fluid versus mass extending along the pulmonary fissure. Consolidative peribronchial opacities in the right lower lobe with patchy groundglass infiltrates throughout the remainder of the lungs. Suspicious for pneumonia. EKG showed normal sinus rhythm Laboratory data showed WBC 17.0, hemoglobin 10.4, RDW 16.2 and absolute neutrophil count 15.1 Lymphocytes 0.8 and Covid PCR negative. D-dimer is 4.94 BUN 2020 creatinine 0.78 Sodium 139, potassium 4.1 bicarb is 24. NT proBNP 814 Patient was given a dose of ceftriaxone and azithromycin in the ER. Currently patient was started on Zosyn. 07/31/20 Patient is currently resting in the bed comfortably. Patient is nonverbal at baseline. Saturating well on room air. Leukocytosis resolved. Hemoglobin 10.3 and sodium 142 creatinine 0.85 Cultures showed no growth so far. Patient is being continued on Zosyn as per previous sputum cultures positive for Pseudomonas aeruginosa. 08/01/2020 Patient is currently lying in the bed comfortably. Patient is nonverbal. Satur ating well on room air when white count is stable remaining laboratory data reviewed. Patient has been afebrile and saturating well on room air.And will discharge back to rehab in the next 24 hours. Complete review of systems could not be obtained from the patient. 08/02/2020 Patient is currently resting in the bed comfortably. Awake alert and follows eye contact but could not come and get. Patient is currently on room air and saturating well. Hemodynamically stable. Leukocytosis is resolved. Patient is off antibiotics and no episodes of fever overnight. Patient completed antibiotic course with Zosyn. Stable to be transferred back to rehab. 08/03/2020 Patient is requesting the bed comfortably. Patient has been afebrile overnight. No episodes of vomiting. Tolerating PEG tube feeding. Patient completed antibiotic course. Ready to be transferred to [facility]. Review of systems could not be obtained from the patient. Current medications reviewed. Objective - Vital Signs Vital signs: Vital Signs Temp 97.9 F 08/03/20 15:00 Pulse 71 08/03/20 15:00 Resp 20 08/03/20 15:00 BP 145/68 08/03/20 15:00 Pulse Ox 97 08/03/20 15:00 Intake & Output 08/02/20 08/03/20 08/03/20 18:59 06:59 18:59 Intake Total 900 880 495 Output Total 500 700 Balance 400 180 495 Weight 65.771 kg 65.771 kg Intake: Intake, IV Titration 160 Amount Sodium Chloride 0.9% 1, 160 000 ml @ 20 mls/hr IV . Q24H [facility] Rx#:[id number] Tube Feeding 900 720 495 Output: Urine 500 700 Other: Voiding Method Indwelling Catheter Indwelling Catheter # Bowel Movements 1 - Exam PHYSICAL EXAMINATION: Patient is lying in the bed comfortably, no acute distress, Patient does not respond to verbal stimuli. HEENT: Normocephalic. Neck is supple. Pupils reactive. Nostrils clear. Oral cavity is moist. Ears reveal no drainage. Neck reveals no JVD, carotid bruits, or thyromegaly. CHEST EXAMINATION: Trachea is central. Symmetrical expansion. Bibasilar diminished air entry and right sided coarse crackles. CARDIAC: Normal S1, S2 with no gallops. No murmurs ABDOMEN: Soft. Bowel sounds present, peg tub ein place. No organomegaly. No abdominal bruits. Extremities: reveal no edema. No clubbing or cyanosis Neurologically Patient is nonverbal and bedridden with muscle wasting and contractures. Skin: No rash Psychiatric: Could not be assessed at this time. Musculoskeletal: Patient does have contractures of bilateral upper extremities and lower extremities.. - Labs CBC & Chem 7: 08/03/20 11:11 08/03/20 11:11 Labs: Abnormal Lab Results - Last 24 Hours (Table) 08/03/20 08/03/20 Range/Units 11:11 11:11 RBC 4.09 L (4.30-5.90) m/uL Hgb 11.4 L (13.0-17.5) gm/dL Hct 37.0 L (39.0-53.0) % MCHC 30.7 L (31.0-37.0) g/dL RDW 16.1 H (11.5-15.5) % Sodium 136 L (137-145) mmol/L Chloride 110 H (98-107) mmol/L Carbon Dioxide 21 L (22-30) mmol/L Creatinine 0.59 L (0.66-1.25) mg/dL Glucose 102 H (74-99) mg/dL Assessment and Plan Assessment: Worsening shortness of breath, tachycardia and CT evidence of loculated effusion and right lower lobe infiltrate due to aspiration pneumonia with recent sputum cultures growing Pseudomonas aeruginosa. Completed antibiotic course with Zosyn. Recent admission with acute hypoxic respiratory failure due to aspiration pneumonia and seizures. Status post mechanical ventilation. Discharged to [facility] on 07/27/2020 Recent history of Proteus mirabilis urinary tract infection Multiple sclerosis with cognitive impairment, speech impairment moderate atrophy rigidity and chronic contractures and bedridden. Neurogenic bladder and chronic indwelling Stein catheter. Previous history of multiple admissions with aspiration pneumonia and UTIs including ESBL E. coli Chronic dysphagia on feeding. Continue with feeding. Seizure disorder Poor functional status at baseline. Patient is bedridden. DVT prophylaxis with Lovenox. Plan: Patient will be continued on IV hydration and completed antibiotics in the form of Zosyn. Patient was given a dose of ceftriaxone and azithromycin in the ER. Patient will be continued on PEG tube feeding. Continue with Keppra and continue seizure precautions. Aspiration precautions and head of the bed elevation to 45 degrees. Continue with the DVT prophylaxis and pulmonary is on board. Negative blood cultures so far. Prognosis is guarded at this time. Time with Patient: Greater than 30
--- NOTE | 2020-08-04 14:48 | P.DS ---
Providers Date of admission: 07/30/20 00:39 Expected date of discharge: 08/04/20 Attending physician: Dara Crowe Consults: 07/30/20 00:36 Consult Physician Routine Consulting Provider: Nathan Yanez Consult Reason/Comments: sob Do you want consulting provider notified?: Yes Primary care physician: Matteo Brandonbartlettviki [facility] Course: Discharge diagnosis Worsening shortness of breath, tachycardia and CT evidence of aspiration pneumonia with recent sputum cultures growing Pseudomonas aeruginosa. Completed antibiotic course with Zosyn. Recent admission with acute hypoxic respiratory failure due to aspiration pneumonia and seizures. Status post mechanical ventilation. Discharged to [facility] on 07/27/2020 Recent history of Proteus mirabilis urinary tract infection Multiple sclerosis with cognitive impairment, speech impairment moderate atrophy rigidity and chronic contractures and bedridden. Neurogenic bladder and chronic indwelling Stein catheter. Previous history of multiple admissions with aspiration pneumonia and UTIs including ESBL E. coli Chronic dysphagia on feeding. Continue with feeding. Seizure disorder Poor functional status at baseline. Patient is bedridden. DVT prophylaxis with Lovenox. Hospital course Patient is a 60-year-old male with a known history of multiple sclerosis at age 20, cognitive impairment, dysphagia/n.p.o. with PEG tube, contractures, dysarthria, neurogenic bladder status post chronic indwelling Stein catheter, multiple pneumonias, seizure disorder and recent hospitalization with seizures/pneumonia/UTI with sepsis/respiratory failure/status post vent was discharged to [facility] on 07/27/2020 to finish the course of antibiotics in the form of vancomycin and Zosyn. Patient was recently treated at [facility]. On 07/29/2020 patient was brought back to the hospital by EMS for evaluation of shortness of breath. Patient was not febrile on admission. Patient had CT chest which showed loculated mass along the right minor fissure. Represents typical location for loculated pleural effusion. However the mass measures soft tissue density. DD include loculated hemorrhagic proteinaceous pleural fluid versus mass extending along the pulmonary fissure. Consolidative peribronchial opacities in the right lower lobe with patchy groundglass infiltrates throughout the remainder of the lungs. Suspicious for pneumonia. EKG showed normal sinus rhythm Laboratory data showed WBC 17.0, hemoglobin 10.4, RDW 16.2 and absolute neutrophil count 15.1 Lymphocytes 0.8 and Covid PCR negative. D-dimer is 4.94 BUN 2019 creatinine 0.78 Sodium 139, potassium 4.1 bicarb is 24. NT proBNP 814 Patient was given a dose of ceftriaxone and azithromycin in the ER. Currently patient was started on Zosyn. 07/31/20 Patient is currently resting in the bed comfortably. Patient is nonverbal at baseline. Saturating well on room air. Leukocytosis resolved. Hemoglobin 10.3 and sodium 142 creatinine 0.85 Cultures showed no growth so far. Patient is being continued on Zosyn as per previous sputum cultures positive for Pseudomonas aeruginosa. 08/01/2020 Patient is currently lying in the bed comfortably. Patient is nonverbal. Saturating well on room air when white count is stable remaining laboratory data reviewed. Patient has been afebrile and saturating well on room air.And will discharge back to rehab in the next 24 hours. Complete review of systems could not be obtained from the patient. 08/02/2020 Patient is currently resting in the bed comfortably. Awake alert and follows eye contact but could not come and get. Patient is currently on room air and saturating well. Hemodynamically stable. Leukocytosis is resolved. Patient is off antibiotics and no episodes of fever overnight. Patient completed antibiotic course with Zosyn. Stable to be transferred back to rehab. 08/03/2020 Patient is requesting the bed comfortably. Patient has been afebrile overnight. No episodes of vomiting. Tolerating PEG tube feeding. Patient completed antibiotic course. Ready to be transferred to ECF. Review of systems could not be obtained from the patient. 08/04/2020 Patient is hemodynamically stable and off antibiotic. Afebrile for the last few days. No leukocytosis. Tolerating PEG tube feeding. Saturating well on room air. Patient is stable to be transferred to rehab and continue to follow aspiration precautions. PHYSICAL EXAMINATION: Patient is lying in the bed comfortably, no acute distress, Patient does not respond to verbal stimuli. HEENT: Normocephalic. Neck is supple. Pupils reactive. Nostrils clear. Oral cavity is moist. Ears reveal no drainage. Neck reveals no JVD, carotid bruits, or thyromegaly. CHEST EXAMINATION: Trachea is central. Symmetrical expansion. Bibasilar d iminished air entry and right sided coarse crackles. CARDIAC: Normal S1, S2 with no gallops. No murmurs ABDOMEN: Soft. Bowel sounds present, peg tub ein place. No organomegaly. No abdominal bruits. Extremities: reveal no edema. No clubbing or cyanosis Neurologically Patient is nonverbal and bedridden with muscle wasting and contractures. Skin: No rash Psychiatric: Could not be assessed at this time. Musculoskeletal: Patient does have contractures of bilateral upper extremities and lower extremities.. d. Vital Signs 08/04/20 08/04/20 07:00 08:00 Temperature 99.1 F Pulse Rate [ 80 80 Pulse Oximetery ] Respiratory 16 16 Rate Blood Pressure 126/77 [Left Arm Supine] O2 Sat by Pulse 96 Oximetry Total time taken greater than 35 minutes including 18 minutes for counseling and coordination of care. Patient Condition at Discharge: Serious Plan - Discharge Summary Discharge Rx Participant: No New Discharge Prescriptions: Continue Cholecalciferol [Vitamin D3 (25 Mcg = 1000 Iu)] 1,000 unit PEG/G-TUBE DAILY Docusate Oral Soln [Colace Oral Soln] 200 mg PEG/G-TUBE Q12H PRN PRN Reason: Constipation Amantadine 50mg/5ml 100 mg PEG/G-TUBE Q12H guaiFENesin [guaiFENesin Oral Solution] 200 mg PEG/G-TUBE Q6H PRN PRN Reason: Cough Acetaminophen Oral Susp [Tylenol] 320 mg PEG/G-TUBE Q6H PRN PRN Reason: Fever And/ Or Pain Omeprazole Magnesium [PriLOSEC Oral Susp] 20 mg PEG/G-TUBE DAILY Metoprolol Tartrate [Lopressor] 75 mg PEG/G-TUBE Q12H polyethylene glycoL 3350 [Miralax] 17 gm PEG/G-TUBE HS PRN PRN Reason: Constipation Oxybutynin Chloride [Ditropan Oral Soln] 5 mg PEG/G-TUBE Q8H Ipratropium-Albuterol Nebulize [Duoneb 0.5 mg-3 mg/3 ml Soln] 3 ml INHALATION RT-QID Albuterol Sulfate [Proair Hfa] 2 puff INHALATION RT-Q4H PRN PRN Reason: Shortness Of Breath Aspirin 81 mg PEG/G-TUBE DAILY chew Lacosamide [Vimpat] 150 mg PEG/G-TUBE Q12H Baclofen [Lioresal] 10 mg PEG/G-TUBE Q8H Hydrocerin Cream 1 applic TOPICAL Q8H Cranberry Fruit Capsule 475mg 1 cap PEG/G-TUBE DAILY levETIRAcetam [Keppra] 1,000 mg PEG/G-TUBE Q12H carBAMazepine [TEGretol] 200 mg PEG/G-TUBE Q12H Ipratropium-Albuterol Nebulize [Duoneb 0.5 mg-3 mg/3 ml Soln] 3 ml INHALATION RT-QID PRN PRN Reason: Shortness Of Breath Discontinued Piperacillin-Tazobactam [Zosyn] 3.375 gm IVPB Q8H Discharge Medication List Amantadine 50mg/5ml 100 mg PEG/G-TUBE Q12H 12/28/17 [History] Cholecalciferol [Vitamin D3 (25 Mcg = 1000 Iu)] 1,000 unit PEG/G-TUBE DAILY 12/28/17 [History] Docusate Oral Soln [Colace Oral Soln] 200 mg PEG/G-TUBE Q12H PRN 12/28/17 [History] guaiFENesin [guaiFENesin Oral Solution] 200 mg PEG/G-TUBE Q6H PRN 12/28/17 [History] Acetaminophen Oral Susp [Tylenol] 320 mg PEG/G-TUBE Q6H PRN 01/26/19 [History] Omeprazole Magnesium [PriLOSEC Oral Susp] 20 mg PEG/G-TUBE DAILY 01/26/19 [History] Metoprolol Tartrate [Lopressor] 75 mg PEG/G-TUBE Q12H 07/29/19 [History] Oxybutynin Chloride [Ditropan Oral Soln] 5 mg PEG/G-TUBE Q8H 09/08/19 [History] polyethylene glycoL 3350 [Miralax] 17 gm PEG/G-TUBE HS PRN 09/08/19 [History] Ipratropium-Albuterol Nebulize [Duoneb 0.5 mg-3 mg/3 ml Soln] 3 ml INHALATION RT-QID 12/16/19 [History] Albuterol Sulfate [Proair Hfa] 2 puff INHALATION RT-Q4H PRN 04/14/20 [History] Aspirin 81 mg PEG/G-TUBE DAILY chew 04/15/20 [Rx] Baclofen [Lioresal] 10 mg PEG/G-TUBE Q8H 07/16/20 [History] Hydrocerin Cream 1 applic TOPICAL Q8H 07/16/20 [History] Lacosamide [Vimpat] 150 mg PEG/G-TUBE Q12H 07/16/20 [History] Cranberry Fruit Capsule 475mg 1 cap PEG/G-TUBE DAILY 07/30/20 [History] Ipratropium-Albuterol Nebulize [Duoneb 0.5 mg-3 mg/3 ml Soln] 3 ml INHALATION RT-QID PRN 07/30/20 [History] carBAMazepine [TEGretol] 200 mg PEG/G-TUBE Q12H 07/30/20 [History] levETIRAcetam [Keppra] 1,000 mg PEG/G-TUBE Q12H 07/30/20 [History] Follow up Appointment(s)/Referral(s): Matteo Hernandez MD [Primary Care Provider] - 1-2 days Discharge Disposition: TRANSFER TO SNF/ECF
[2020-08-04 15:49] VITALS: BP 130/81; PULSE 69; RESP 18; TEMP 97.6
--- NOTE | 2020-08-05 11:25 | CDI ---
Documentation Clarification Form Date: 08/05/20 From: Penelope Zhu Phone: If you have a question about this query, please contact Deb Bergeron Supervisor Denture Department at [phone] between 8am and 5pm. Admit Date: 07/30/20 Discharge Date:08/04/20 Patient Name: Chris Diamond Visit Number: [id number] ATTENTION: The Clinical Documentation Specialists (CDI) and [facility] Coding Staff appreciate your assistance in clarifying documentation. Please respond to the clarification below the line at the bottom and electronically sign. The CDI & [facility] Coding staff will review the response and follow-up if needed. Please note: Queries are made part of the Legal Health Record. If you have any questions, please contact the author of this message via ITS. Dear Dr. Alvarez The diagnosis sepsis was documented in the ED record, but is not noted in subsequent documentation. History/Risk Factors: Aspiration pneumonia, being treated for pseudomonas pneumonia from previous admission, Clinical Indicators: Elevated WBC WBC: 17.0 Lactic acid: 0.6 Blood cultures: Not drawn Vital signs on admission: T. 98.2, P. 88, R. 16 then up to 22 20 minutes later, BP 130/82 Treatment: IV Zithromax, Rocephin and Zosyn IV Bolus: 1 liter NS Please clarify if the Sepsis was Present/active this admission Treated and resolved this admission Ruled out Other, please specify Clinically unable to determine Treated and resolved this admission MTDD
--- NOTE | 2020-08-05 11:36 | CDI ---
Documentation Clarification Form Date: 08/05/20 From: Penelope Zhu Phone: If you have a question about this query, please contact Deb Bergeron Enamel Machine Operator at [phone] between 8am and 5pm. Admit Date: 07/30/20 Discharge Date:08/04/20 Patient Name: Chris Marvin Visit Number: [id number] ATTENTION: The Clinical Documentation Specialists (CDI) and [facility] Coding Staff appreciate your assistance in clarifying documentation. Please respond to the clarification below the line at the bottom and electronically sign. The CDI & [facility] Coding staff will review the response and follow-up if needed. Please note: Queries are made part of the Legal Health Record. If you have any questions, please contact the author of this message via ITS. Dear Dr. Alvarez Altered Mental Status was documented in the ED note. History/Risk Factors: Severe cognitive impairment related to MS, aspiration pneumonia, Pseudomonas pneumonia from previous hospitalization still begin treated Clinical Indicators: altered mental status documented in ED clinical impression, neuro exam in ED note states alert and oriented x 3 Labs: WBC 17.0, BUN 22, glucose 112, magnesium 2.4, creatine kinase 53, albumin 3.1 Treatment: IV Fluid bolus 1 liter NS, IV Zosyn, Rocphin and Zithromax In your professional opinion, please clarify the etiology of the Altered Mental Status, if known. Delirium (specify cause): Dementia (if know, specify Type and if with/without Behavioral Disturbance) Encephalopathy (specify Type and Underlying Medical Illness) Other condition (please specify) Unable to determine Metabolic Encephalopathy MTDD
== END 2020-08-04 18:37 | DRG 871 ==
LOC: EC 23:24 → 4SSUR 07-30 00:39
PROVIDERS: ADMIT Hospitalist; ATTEND Hospitalist
DX: A41.9 Sepsis, unspecified organism (principal); J69.0 Pneumonitis due to inhalation of food and vomit; J15.1 Pneumonia due to Pseudomonas; G93.41 Metabolic encephalopathy; F32.9 Major depressive disorder, single episode, unspecified; G35 Multiple sclerosis; G40.909 Epilepsy, unspecified, not intractable, without status epilepticus; I10 Essential (primary) hypertension; N31.9 Neuromuscular dysfunction of bladder, unspecified; K21.9 Gastro-esophageal reflux disease without esophagitis; Z20.828 Contact with and (suspected) exposure to other viral communicable diseases; R13.10 Dysphagia, unspecified; F09 Unspecified mental disorder due to known physiological condition; R32 Unspecified urinary incontinence; R15.9 Full incontinence of feces; Z74.01 Bed confinement status; Z79.82 Long term (current) use of aspirin; Z79.899 Other long term (current) drug therapy; Z86.718 Personal history of other venous thrombosis and embolism; Z87.01 Personal history of pneumonia (recurrent); Z87.440 Personal history of urinary (tract) infections; Z93.1 Gastrostomy status; Z88.1 Allergy status to other antibiotic agents; Z86.14 Personal history of Methicillin resistant Staphylococcus aureus infection; Z86.19 Personal history of other infectious and parasitic diseases; Z90.89 Acquired absence of other organs; Z98.890 Other specified postprocedural states; Z82.49 Family history of ischemic heart disease and other diseases of the circulatory system
CPT/HCPCS: 36415; 71045; 71046; 71250; 80048; 80053; 81003; 82550; 82803; 83605; 83735; 83880; 84484; 85025; 85379; 85610; 85730; 87040; 87635; 93005; 94640; 96361; 96365; 96368; 99285; 99291

== ENCOUNTER 2020-08-10 02:07 | Inpatient (IN) | payer MEDICARE, OTHER ==
[2020-08-10] MEDS ORDERED: SODIUM CHLORIDE 0.9% 500 ML 500 ML IV STA (02:32)
--- NOTE | 2020-08-10 02:46 | ED ---
General Adult HPI - General Source: EMS, RN notes reviewed Mode of arrival: EMS Limitations: language barrier <Duy Morton P - Last Filed: 08/10/20 03:58> <Paula Yoder P - Last Filed: 08/10/20 05:44> - General Chief complaint: Shortness of Breath Stated complaint: SOB Time Seen by Provider: 08/10/20 02:13 - History of Present Illness Initial comments: 60-year-old male with a complicated past medical history including multiple sclerosis currently residing at [facility] [place] presents to the emergency room for a chief complaint of "fast breathing." Patient is nonverbal which is his baseline. Staff reports that the patient started breathing quickly today. They report he appeared short of breath.Patient has no other complaints at this time including shortness of breath, chest pain, abdominal pain, nausea or vomiting, headache, or visual changes. (Duy Morton) - Related Data Home Medications Medication Instructions Recorded Confirmed Amantadine 50mg/5ml 100 mg PEG/G-TUBE Q12H 12/28/17 07/30/20 Cholecalciferol [Vitamin D3 (25 1,000 unit PEG/G-TUBE DAILY 12/28/17 07/30/20 Mcg = 1000 Iu)] Docusate Oral Soln [Colace Oral 200 mg PEG/G-TUBE Q12H PRN 12/28/17 07/30/20 Soln] guaiFENesin [guaiFENesin Oral 200 mg PEG/G-TUBE Q6H PRN 12/28/17 07/30/20 Solution] Acetaminophen Oral Susp [Tylenol] 320 mg PEG/G-TUBE Q6H PRN 01/26/19 07/30/20 Omeprazole Magnesium [PriLOSEC 20 mg PEG/G-TUBE DAILY 01/26/19 07/30/20 Oral Susp] Metoprolol Tartrate [Lopressor] 75 mg PEG/G-TUBE Q12H 07/29/19 07/30/20 Oxybutynin Chloride [Ditropan Oral 5 mg PEG/G-TUBE Q8H 09/08/19 07/30/20 Soln] polyethylene glycoL 3350 [Miralax] 17 gm PEG/G-TUBE HS PRN 09/08/19 07/30/20 Ipratropium-Albuterol Nebulize 3 ml INHALATION RT-QID 12/16/19 07/30/20 [Duoneb 0.5 mg-3 mg/3 ml Soln] Albuterol Sulfate [Proair Hfa] 2 puff INHALATION RT-Q4H PRN 04/14/20 07/30/20 Baclofen [Lioresal] 10 mg PEG/G-TUBE Q8H 07/16/20 07/30/20 Hydrocerin Cream 1 applic TOPICAL Q8H 07/16/20 07/30/20 Lacosamide [Vimpat] 150 mg PEG/G-TUBE Q12H 07/16/20 07/30/20 Cranberry Fruit Capsule 475mg 1 cap PEG/G-TUBE DAILY 07/30/20 07/30/20 Ipratropium-Albuterol Nebulize 3 ml INHALATION RT-QID PRN 07/30/20 07/30/20 [Duoneb 0.5 mg-3 mg/3 ml Soln] carBAMazepine [TEGretol] 200 mg PEG/G-TUBE Q12H 07/30/20 07/30/20 levETIRAcetam [Keppra] 1,000 mg PEG/G-TUBE Q12H 07/30/20 07/30/20 Previous Rx's Medication Instructions Recorded Aspirin 81 mg PEG/G-TUBE DAILY chew 04/15/20 Allergies Allergy/AdvReac Type Severity Reaction Status Date / Time meropenem [From Merrem] Allergy Rash/Hives Verified 07/30/20 07:55 Review of Systems ROS Other: All systems not noted in ROS Statement are negative. <Duy Morton P - Last Filed: 08/10/20 03:58> ROS Other: All systems not noted in ROS Statement are negative. <Paula Yoder P - Last Filed: 08/10/20 05:44> ROS Statement: Those systems with pertinent positive or pertinent negative responses have been documented in the HPI. Past Medical History Past Medical History: Deep Vein Thrombosis (DVT), GERD/Reflux, Hypertension, Musculoskeletal Disorder, Neurologic Disorder, Pneumonia, Skin Disorder Additional Past Medical History / Comment(s): Pt recently hospitalized at [facility] for extensive stay with seizure/pneumonia/UTI with sepsis/respirtory failure/vented-Pt diagnosed with multiple sclerosis at the age of 20 yrs, cognitive impairment, sister states when he is feeling well he could speak a few words/nod head appropriately/give thumbs up/roll eyes but when ill is nonverbal, pt has dysphagia/NPO with peg tube, contractures, trigeminal neuralgia, dysarthria/anarthria/neurogenic bladder with IDC-UTIs/sepsis, multiple pneumonias, recent seizure-last one 07/03/20, incontinent of stool, pt has had decubitus ulcer coccyx-sister unsure of skin condition at this time, past anemia r/t heparin/epistaxiis which involved nasal packing/transfusions, DVT bilateral arms. History of Any Multi-Drug Resistant Organisms: ESBL, MRSA Date of last positivie culture/infection: 09/13/19-MRSA; 11/23/19 ESBL-E.coli MDRO Source:: Broch lavage-Mrsa; Urine -ESBL Past Surgical History: Tonsillectomy Additional Past Surgical History / Comment(s): Gastrostomy, peg tube, I&D coccyx decubitius, bilateral lasik eye surgery. Past Anesthesia/Blood Transfusion Reactions: No Reported Reaction Additional Past Anesthesia/Blood Transfusion Reaction / Comment(s): Pt has received blood in past without reaction. Past Psychological History: Depression Smoking Status: Never smoker - Past Family History Father Family Medical History: Myocardial Infarction (DE) Additional Family Medical History / Comment(s): Father is at the age of 86 yrs while on heparin/bled, he had a mild [place] Mother Family Medical History: Hypertension, Myocardial Infarction (DE) Additional Family Medical History / Comment(s): Mother of a DE at the age of 73 yrs. <Duy Morton P - Last Filed: 08/10/20 03:58> General Exam Limitations: language barrier <Duy Morton P - Last Filed: 08/10/20 03:58> Course Vital Signs 08/10/20 08/10/20 08/10/20 02:12 02:59 03:36 Temperature 99.3 F 99.7 F H Pulse Rate 94 Respiratory 32 H 32 H Rate Blood Pressure 118/75 O2 Sat by Pulse 98 Oximetry 08/10/20 08/10/20 04:29 05:28 Temperature 98.3 F Pulse Rate 96 94 Respiratory 19 22 Rate Blood Pressure 115/76 117/75 O2 Sat by Pulse 96 94 L Oximetry EKG Findings - EKG Comments: EKG Findings:: Normal sinus rhythm, ventricular rate 92, TX interval 148, QTC 422 <Duy Morton P - Last Filed: 08/10/20 03:58> Medical Decision Making - Lab Data Result diagrams: 08/10/20 02:46 08/10/20 02:46 <Duy Morton P - Last Filed: 08/10/20 03:58> - Lab Data Result diagrams: 08/10/20 02:46 08/10/20 02:46 <Paula Yoder P - Last Filed: 08/10/20 05:44> - Medical Decision Making Vitals stable however patient With respiratory rate of 32. Lungs are clear bilaterally. 99.7 on rectal temperature. Patient was of note recently intubated and treated for aspiration pneumonia. Patient was again started on Zosyn here in the emergency room given physical exam findings of tachypnea and temperature 99.7. CBC does show again leukocytosis. CMP is unremarkable. Eng virus and influenza are negative. Chest x-ray shows a stable ovoid masslike opacity right lung base with mild basilar atelectasis/chronic changes. D-dimer elevated, CT pending at this time. Care signed out to Dr Yoder (Duy Morton) Patient CT negative for acute PE or pneumonia. However patient's oxygen decreasing, requiring supplemental oxygen, patient has leukocytosis, tachypnea, tachycardia, will be admitted for SIRS criteria with hypoxia. (Paula Yoder) - Lab Data Lab Results 08/10/20 08/10/20 08/10/20 Range/Units 02:46 02:46 02:46 WBC 14.9 H (3.8-10.6) k/uL RBC 3.99 L (4.30-5.90) m/uL Hgb 10.7 L (13.0-17.5) gm/dL Hct 34.1 L (39.0-53.0) % MCV 85.4 D (80.0-100.0) fL MCH 26.7 (25.0-35.0) pg MCHC 31.3 (31.0-37.0) g/dL RDW 16.6 H (11.5-15.5) % Plt Count 390 (150-450) k/uL Neutrophils % 87 % Lymphocytes % 7 % Monocytes % 3 % Eosinophils % 2 % Basophils % 0 % Neutrophils # 12.9 H (1.3-7.7) k/uL Lymphocytes # 1.1 (1.0-4.8) k/uL Monocytes # 0.5 (0-1.0) k/uL Eosinophils # 0.3 (0-0.7) k/uL Basophils # 0.0 (0-0.2) k/uL Anisocytosis Slight PT 10.7 (9.0-12.0) sec INR 1.0 (<1.2) APTT 29.3 (22.0-30.0) sec D-Dimer 2.99 H (<0.60) mg/L FEU Sodium 131 L (137-145) mmol/L Potassium 4.2 (3.5-5.1) mmol/L Chloride 102 (98-107) mmol/L Carbon Dioxide 23 (22-30) mmol/L Anion Gap 6 mmol/L BUN 14 (9-20) mg/dL Creatinine 0.75 (0.66-1.25) mg/dL Est GFR (CKD-EPI)AfAm >90 (>60 ml/min/1.73 sqM) Est GFR (CKD-EPI)NonAf >90 (>60 ml/min/1.73 sqM) Glucose 109 H (74-99) mg/dL Plasma Lactic Acid Taurus (0.7-2.0) mmol/L Calcium 8.6 (8.4-10.2) mg/dL Total Bilirubin 0.3 (0.2-1.3) mg/dL AST 19 (17-59) U/L ALT 14 (4-49) U/L Alkaline Phosphatase 90 (38-126) U/L Troponin I (0.000-0.034) ng/mL Total Protein 6.5 (6.3-8.2) g/dL Albumin 3.0 L (3.5-5.0) g/dL Coronavirus (PCR) (Not Detectd) Influenza Type A RNA (Not Detectd) Influenza Type B (PCR) (Not Detectd) 08/10/20 08/10/20 08/10/20 Range/Units 02:46 02:46 02:46 WBC (3.8-10.6) k/uL RBC (4.30-5.90) m/uL Hgb (13.0-17.5) gm/dL Hct (39.0-53.0) % MCV (80.0-100.0) fL MCH (25.0-35.0) pg MCHC (31.0-37.0) g/dL RDW (11.5-15.5) % Plt Count (150-450) k/uL Neutrophils % % Lymphocytes % % Monocytes % % Eosinophils % % Basophils % % Neutrophils # (1.3-7.7) k/uL Lymphocytes # (1.0-4.8) k/uL Monocytes # (0-1.0) k/uL Eosinophils # (0-0.7) k/uL Basophils # (0-0.2) k/uL Anisocytosis PT (9.0-12.0) sec INR (<1.2) APTT (22.0-30.0) sec D-Dimer (<0.60) mg/L FEU Sodium (137-145) mmol/L Potassium (3.5-5.1) mmol/L Chloride (98-107) mmol/L Carbon Dioxide (22-30) mmol/L Anion Gap mmol/L BUN (9-20) mg/dL Creatinine (0.66-1.25) mg/dL Est GFR (CKD-EPI)AfAm (>60 ml/min/1.73 sqM) Est GFR (CKD-EPI)NonAf (>60 ml/min/1.73 sqM) Glucose (74-99) mg/dL Plasma Lactic Acid Taurus 0.7 (0.7-2.0) mmol/L Calcium (8.4-10.2) mg/dL Total Bilirubin (0.2-1.3) mg/dL AST (17-59) U/L ALT (4-49) U/L Alkaline Phosphatase (38-126) U/L Troponin I 0.032 (0.000-0.034) ng/mL Total Protein (6.3-8.2) g/dL Albumin (3.5-5.0) g/dL Coronavirus (PCR) Not Detected (Not Detectd) Influenza Type A RNA Not Detected (Not Detectd) Influenza Type B (PCR) Not Detected (Not Detectd) Disposition <Duy Morton P - Last Filed: 08/10/20 03:58> <Paula Yoder P - Last Filed: 08/10/20 05:44> Clinical Impression: Multiple sclerosis, SIRS (systemic inflammatory response syndrome), Pneumonia, Hypoxia Disposition: ADMITTED IP TO THIS HOSP Condition: Serious Referrals: Matteo Hernandez MD [Primary Care Provider] - 1-2 days
[2020-08-10 03:10] LABS: Anisocytosis Slight; Basophils % (A) 0 %; Eosinophils # (A) 0.3 k/uL (0-0.7); Eosinophils % (A) 2 %; HCT 34.1 % (39.0-53.0); HGB 10.7 gm/dL (13.0-17.5); Lymphocytes # (A) 1.1 k/uL (1.0-4.8); Lymphocytes % (A) 7 %; MCH 26.7 pg (25.0-35.0); MCHC 31.3 g/dL (31.0-37.0); Mean Platelet Volume 7.5; Monocytes # (A) 0.5 k/uL (0-1.0); Monocytes % (A) 3 %; Neutrophils # (A) 12.9 k/uL (1.3-7.7); Neutrophils % (A) 87 %; Platelet Count 390 k/uL (150-450); RBC 3.99 m/uL (4.30-5.90); RDW 16.6 % (11.5-15.5); WBC 14.9 k/uL (3.8-10.6)
[2020-08-10 03:17] LABS: ALT 14 U/L (4-49); AST 19 U/L (17-59); African American GFR (CKD) >90 (>60 ml/min/1.73 sqM); Alkaline Phosphatase 90 U/L (38-126); Anion Gap 6 mmol/L; Blood Urea Nitrogen 14 mg/dL (9-20); Calcium 8.6 mg/dL (8.4-10.2); Carbon Dioxide 23 mmol/L (22-30); Chloride 102 mmol/L (98-107); Glucose 109 mg/dL (74-99); Non-African American GFR(CKD) >90 (>60 ml/min/1.73 sqM); Potassium 4.2 mmol/L (3.5-5.1); Sodium 131 mmol/L (137-145); Total Bilirubin 0.3 mg/dL (0.2-1.3); Total Protein 6.5 g/dL (6.3-8.2)
[2020-08-10 03:22] LABS: MCV 85.4 fL (80.0-100.0)
[2020-08-10 03:30] LABS: Partial Thromboplastin Time 29.3 sec (22.0-30.0); Prothrombin Time 10.7 sec (9.0-12.0)
--- NOTE | 2020-08-10 03:35 | XR ---
EXAM: XR Chest, 1 View CLINICAL HISTORY: ITS.REASON XR Reason: difficulty breathing TECHNIQUE: Frontal view of the chest. COMPARISON: Chest x-ray 07/31/[address] 07/29/20 FINDINGS: Lungs: Stable ovoid masslike opacity right lung base. Mild basilar atelectasis/chronic changes. Pleural space: Unremarkable. No pneumothorax. Heart: Unremarkable. No cardiomegaly. Mediastinum: Unremarkable. Bones/joints: Unremarkable. Tubes, lines and devices: Interval removal of the right PICC IMPRESSION: 1. Stable ovoid masslike opacity right lung base. 2. Mild basilar atelectasis/chronic changes.
[2020-08-10 03:40] LABS: SARS-CoV-2 RNA Rapid Abbott Not Detected (Not Detectd)
[2020-08-10 03:50] LABS: D-Dimer 2.99 mg/L FEU (<0.60)
[2020-08-10] MEDS ORDERED: PIPERACILLIN-TAZOBACTAM 3.375 GM in SODIUM CHLORIDE 0.9% 100 ML IVPB STA (03:50)
--- NOTE | 2020-08-10 04:48 | CT ---
EXAM: CT Angiography Chest With Intravenous Contrast CLINICAL HISTORY: ITS.REASON CT Reason: pe TECHNIQUE: Axial computed tomographic angiography images of the chest with intravenous contrast. CTDI is 13.07 mGy and DLP is 374.2 mGy-cm. This CT exam was performed using one or more of the following dose reduction techniques: automated exposure control, adjustment of the mA and/or kV according to patient size, and/or use of iterative reconstruction technique. MIP reconstructed images were created and reviewed. COMPARISON: CT 07/29/20 and chest x-ray today. FINDINGS: Artifacts: Motion artifact. Pulmonary arteries: Unremarkable. No pulmonary embolism. Aorta: No acute findings. No thoracic aortic aneurysm. Lungs: Bibasilar atelectasis or airspace disease. Greater in the right lower lobe. Similar to the prior. The ovoid mass in the right lung may be within the minor fissure. As on the prior, it is soft tissue density. No obvious enhancement when compared to the prior noncontrast study. Pleural space: Unremarkable. No significant effusion. No pneumothorax. Heart: Unremarkable. No cardiomegaly. No significant pericardial effusion. No evidence of RV dysfunction. Coronary calcifications. Bones/joints: Degenerative changes of the spine. No acute fracture. No dislocation. Soft tissues: Unremarkable. Lymph nodes: Similar small and mildly enlarged mediastinal and right hilar nodes. IMPRESSION: 1. Bibasilar atelectasis or airspace disease. Greater in the right lower lobe. Similar to the prior. 2. The ovoid mass in the right lung may be within the minor fissure. As on the prior, it is soft tissue density. No obvious enhancement when compared to the prior noncontrast study. May represent complex, loculated pleural fluid although other mass not excluded. Continue follow-up. 3. Similar small and mildly enlarged mediastinal and right hilar nodes.
[2020-08-10] MEDS ORDERED: IBUPROFEN 400 MG TAB PO PRN (05:40)
[2020-08-10] MEDS ORDERED: ACETAMINOPHEN TAB 325 MG TAB PO PRN (05:40)
[2020-08-10] MEDS ORDERED: NALOXONE 0.4 MG/ML 1 ML VIAL IV PRN (05:40)
[2020-08-10] MEDS: SODIUM CHLORIDE 0.9% 1,000 ML IV SCH (07:51)
[2020-08-10] MEDS ORDERED: DOCUSATE ORAL SOLN 100 MG/10 ML CUP PEG/G-TUBE PRN (14:24)
[2020-08-10] MEDS ORDERED: polyethylene glycoL 3350 17 GM POWD.PACK PEG/G-TUBE PRN (14:24)
[2020-08-10] MEDS ORDERED: ALBUTEROL NEBULIZED 2.5 MG/3 ML INHALATION PRN (14:24)
[2020-08-10] MEDS ORDERED: guaiFENesin SYRUP 100MG/5ML 200 MG/10 ML CUP PEG/G-TUBE PRN (14:24)
[2020-08-10] MEDS ORDERED: IPRATROPIUM-ALBUTEROL 3 ML NEB INHALATION PRN (14:24)
--- NOTE | 2020-08-10 16:46 | HP ---
HISTORY AND PHYSICAL DATE OF SERVICE: 08/10/2020 CHIEF COMPLAINT: Shortness of breath. HISTORY OF PRESENT ILLNESS: This 60-year-old gentleman with past medical history of multiple medical problems, including history of DVT, history of GERD, hypertension, DJD, history of pneumonia, history of seizure disorder, history of sepsis, being followed by Dr. Hernandez, was living in an ECF. The patient had aspiration pneumonia and acute hypoxic respiratory failure recently. The patient also had metabolic encephalopathy. The patient also had chronic advanced multiple sclerosis. The patient also has protein-calorie malnutrition. Currently in the ECF the patient was noted to have shortness of breath and rapid breathing. The patient was sent to [facility] for further evaluation and treatment. Evaluation in the ER showed labs with WBC of 14.9. D-dimer was 2.99. Coronavirus and influenza negative. Chest x-ray was done which was reviewed by me. It showed bibasilar atelectatic changes. CTA was done which showed bibasilar atelectasis and pneumonia, ovoid mass in the right lung; may represent complex loculated effusion. CT of the chest was reviewed personally by me. The patient was admitted for further evaluation and treatment. The patient is unable to give a coherent history. Most of the history was taken from my discussion with staff and review of the chart at this time. PAST MEDICAL HISTORY: History of DVT, history of GERD, history of recent aspiration pneumonia, seizure disorder. MEDICATIONS: Home medications are DuoNeb, guaifenesin, albuterol, Colace, oxybutynin, baclofen, Keppra, metoprolol, Vimpat, Tegretol, Prilosec. ALLERGIES: MERREM. Family history, social history and review of systems could not be taken. Per chart, myocardial infarction in the family and previous history of smoking, occasional alcohol intake. PHYSICAL EXAMINATION: Patient is conscious, barely responsive. Pulse 94, blood pressure 108/78, respiration 18, temperature 98.4, pulse ox 98% on 6 L. HEENT: Conjunctivae normal. NECK: No jugular venous distention. CARDIOVASCULAR SYSTEM: S1, S2 muffled. RESPIRATORY SYSTEM: Breath sounds diminished at the bases. Bilateral scattered rhonchi and crackles. ABDOMEN: Soft, non-tender. LEGS: No edema. No swelling. NERVOUS SYSTEM: No focal deficit. LABS: WBC 14.2, hemoglobin 10.7. Sodium 131. ASSESSMENT: 1. Possible chronic obstructive pulmonary disease, acute exacerbation, with acute bilateral pneumonia, possibly aspiration pneumonia. 2. COVID-19 influenza negative. 3. History of extended-spectrum beta-lactamase and methicillin-resistant Staphylococcus aeruginosa. 4. Change in mental status, acute on chronic metabolic encephalopathy, multifactorial. 5. Acute hypoxic respiratory failure. 6. History of recent aspiration pneumonia and respiratory failure. 7. Severe cognitive impairment. 8. History of decubitus ulcers. 9. Chronic advanced multiple sclerosis. 10.PEG tube feeding. 11.Chronic deep vein thrombosis. 12.Gastroesophageal reflux disease. 13.Degenerative joint disease. 14.History of chronic neurogenic bladder, indwelling catheter. 15.Chronic medical debility. 16.Chronic dysphagia. 17.History of depression. 18.Partial status epilepticus history. 19.Anemia, normocytic. 20.FULL CODE. RECOMMENDATIONS AND DISCUSSION: In this 60-year-old gentleman who presented with multiple complex medical issues, we will monitor the patient closely, continue the current medications, continue symptomatic treatment. Will initiate broad-spectrum IV antibiotics, aggressive bronchodilation. Will check BNP. Obtain consultations with Pulmonary as well as Neurology. Guarded prognosis because of multiple complex medical issues. Further recommendations to follow. A copy of this dictation is being forwarded to Dr. Hernandez, who is the primary physician. MMHARPALL / ARMANDON: [id number] /
[2020-08-10] MEDS: levETIRAcetam ORAL SOLN 500 MG/5 ML CUP PEG/G-TUBE SCH (16:52)
[2020-08-10] MEDS: METOPROLOL TARTRATE 25 MG TAB PEG/G-TUBE SCH (16:55)
[2020-08-10] MEDS: BACLOFEN 10 MG TAB PEG/G-TUBE SCH (16:57)
[2020-08-10] MEDS: IPRATROPIUM-ALBUTEROL 3 ML NEB INHALATION SCH ×2 (17:02→21:35)
[2020-08-10] MEDS: LACOSAMIDE 150 MG TABLET PEG/G-TUBE SCH (17:05)
[2020-08-10] MEDS: carBAMazepine 200 MG TAB PEG/G-TUBE SCH (17:05)
[2020-08-10] MEDS: MINERAL OIL-WHITE PETROLATUM 120 GM JAR TOPICAL SCH (17:05)
[2020-08-10] MEDS: OXYBUTYNIN CHLORIDE 5 MG TAB PEG/G-TUBE SCH (17:05)
[2020-08-10] MEDS: PIPERACILLIN-TAZOBACTAM 3.375 GM in SODIUM CHLORIDE 0.9% 100 ML IVPB SCH (17:06)
--- NOTE | 2020-08-10 17:25 | P.CNNES ---
History of Present Illness Consult date: 08/10/20 Requesting physician: Dara Crowe Reason for Consult: Seizures History of Present Illness: Patient is a 60-year-old male with history of advanced multiple sclerosis, severe dementia, nonverbal state, medically intractable epilepsy, came to the hospital from [facility] because of shortness of breath. He lives in [facility] and was transferred for "fast breathing". Patient has history of seizure disorder, but has not had any seizure since arrived to the hospital. Neurology was consulted for management of seizure medications. Patient's blood test shows a BBC 14.9 hemoglobin 10.7 platelets 390. PT/PTT normal. Sodium 131 potassium 4.2, normal renal functions. Hepatic panel normal. Influenza and Coronavirus negative. Patient is currently on amantadine 100 mg twice a day, aspirin 81 mg, Tegretol 200 mg every 12 hours, Vimpat 150 mg twice a day and Keppra 1000 mg twice a day. Review of Systems ROS unobtainable: due to mental status Past Medical History Past Medical History: Deep Vein Thrombosis (DVT), GERD/Reflux, Hypertension, Musculoskeletal Disorder, Neurologic Disorder, Pneumonia, Skin Disorder Additional Past Medical History / Comment(s): Pt recently hospitalized at [facility] for extensive stay with seizure/pneumonia/UTI with sepsis/respirtory failure/vented-Pt diagnosed with multiple sclerosis at the age of 20 yrs, cognitive impairment, sister states when he is feeling well he could speak a few words/nod head appropriately/give thumbs up/roll eyes but when ill is nonverbal, pt has dysphagia/NPO with peg tube, contractures, trigeminal neuralgia, dysarthria/anarthria/neurogenic bladder with IDC-UTIs/sepsis, multiple pneumonias, recent seizure-last one 07/03/20, incontinent of stool, pt has had decubitus ulcer coccyx-sister unsure of skin condition at this time, past anemia r/t heparin/epistaxiis which involved nasal packing/transfusions, DVT bilateral arms. History of Any Multi-Drug Resistant Organisms: ESBL, MRSA Date of last positivie culture/infection: 09/13/19-MRSA; 11/23/19 ESBL-E.coli MDRO Source:: Broch lavage-Mrsa; Urine -ESBL Past Surgical History: Tonsillectomy Additional Past Surgical History / Comment(s): Gastrostomy, peg tube, I&D coccyx decubitius, bilateral lasik eye surgery. Past Anesthesia/Blood Transfusion Reactions: No Reported Reaction Additional Past Anesthesia/Blood Transfusion Reaction / Comment(s): Pt has received blood in past without reaction. Past Psychological History: Depression Smoking Status: Never smoker - Past Family History Father Family Medical History: Myocardial Infarction (SC) Additional Family Medical History / Comment(s): Father is at the age of 86 yrs while on heparin/bled, he had a mild SC Mother Family Medical History: Hypertension, Myocardial Infarction (SC) Additional Family Medical History / Comment(s): Mother of a SC at the age of 73 yrs. Medications and Allergies Home Medications Medication Instructions Recorded Confirmed Type Amantadine 50mg/5ml 100 mg PEG/G-TUBE Q12H 12/28/17 08/10/20 History Cholecalciferol [Vitamin D3 (25 1,000 unit PEG/G-TUBE DAILY 12/28/17 08/10/20 History Mcg = 1000 Iu)] Docusate Oral Soln [Colace Oral 200 mg PEG/G-TUBE Q12H PRN 12/28/17 08/10/20 History Soln] guaiFENesin [guaiFENesin Oral 200 mg PEG/G-TUBE Q6H PRN 12/28/17 08/10/20 History Solution] Acetaminophen Oral Susp [Tylenol] 320 mg PEG/G-TUBE Q6H PRN 01/26/19 08/10/20 History Omeprazole Magnesium [PriLOSEC 20 mg PEG/G-TUBE DAILY 01/26/19 08/10/20 History Oral Susp] Metoprolol Tartrate [Lopressor] 75 mg PEG/G-TUBE Q12H 07/29/19 08/10/20 History Oxybutynin Chloride [Ditropan Oral 5 mg PEG/G-TUBE Q8H 09/08/19 08/10/20 History Soln] polyethylene glycoL 3350 [Miralax] 17 gm PEG/G-TUBE HS PRN 09/08/19 08/10/20 History Ipratropium-Albuterol Nebulize 3 ml INHALATION RT-QID 12/16/19 08/10/20 History [Duoneb 0.5 mg-3 mg/3 ml Soln] Albuterol Sulfate [Proair Hfa] 2 puff INHALATION RT-Q4H PRN 04/14/20 08/10/20 History Aspirin 81 mg PEG/G-TUBE DAILY chew 04/15/20 08/10/20 Rx Baclofen [Lioresal] 10 mg PEG/G-TUBE Q8H 07/16/20 08/10/20 History Hydrocerin Cream 1 applic TOPICAL Q8H 07/16/20 08/10/20 History Lacosamide [Vimpat] 150 mg PEG/G-TUBE Q12H 07/16/20 08/10/20 History Cranberry Fruit Capsule 475mg 1 cap PEG/G-TUBE DAILY 07/30/20 08/10/20 History Ipratropium-Albuterol Nebulize 3 ml INHALATION RT-QID PRN 07/30/20 08/10/20 History [Duoneb 0.5 mg-3 mg/3 ml Soln] carBAMazepine [TEGretol] 200 mg PEG/G-TUBE Q12H 07/30/20 08/10/20 History levETIRAcetam [Keppra] 1,000 mg PEG/G-TUBE Q12H 07/30/20 08/10/20 History Pulmoc[facility] 1.5 1,105 ml PEG/G-TUBE DIRECTED 08/10/20 08/10/20 History Allergies Allergy/AdvReac Type Severity Reaction Status Date / Time meropenem [From Merrem] Allergy Rash/Hives Verified 08/10/20 07:06 Physical Examination - Vital Signs Vital Signs: Vital Signs Temp Pulse Resp BP Pulse Ox 08/10/20 14:30 90 18 121/82 94 L 08/10/20 13:00 98.4 F 94 18 105/78 98 08/10/20 09:34 98.3 F 08/10/20 05:28 98.3 F 94 22 117/75 94 L 08/10/20 04:29 96 19 115/76 96 08/10/20 03:36 32 H 08/10/20 02:59 99.7 F H 08/10/20 02:12 99.3 F 94 32 H 118/75 98 Intake and Output 08/10/20 08/10/20 08/10/20 06:59 14:59 22:59 Output Total 1000 Balance -1000 Output: Urine 1000 Other: Weight 49.895 kg Patient is a late middle aged male, laying comfortably in the bed. Patient is nonverbal. He does make some eye contact but does not follow. Make some vocalization which is non-intelligible. Patient's pupils are round and reacting. Visual prater could not be tested. However he does have intact extraocular muscles. Face is symmetric. Patient has spastic quadriplegic. Patient's tone is increased in the arms and legs. Patient has bilateral Babinski. Patient's legs are flexed at the hips and knees. No obvious seizure activity noted. Results - Laboratory Findings CBC and BMP: 08/10/20 02:46 08/10/20 02:46 Abnormal Lab Findings: Abnormal Labs 08/10/20 08/10/20 08/10/20 02:46 02:46 02:46 WBC 14.9 H RBC 3.99 L Hgb 10.7 L Hct 34.1 L RDW 16.6 H Neutrophils # 12.9 H D-Dimer 2.99 H Sodium 131 L Glucose 109 H Albumin 3.0 L Assessment and Plan Assessment: * Localization-related epilepsy, currently stable. No breakthrough seizures reported. * Advanced multiple sclerosis, severe dementia, nonverbal state, bedridden. * Possible COPD exacerbation * History of back but his ulcers, * Dysphagia, status post PEG tube placement. Plan: * Continue same dose of seizure medications including Tegretol 200 mg every 12 hours, Vimpat 150 mg twice a day and Keppra 1000 mg twice a day. * Please call neurology if patient has any breakthrough seizures. * Your medical management for COPD and other medical conditions.
[2020-08-10 17:31] LABS: Appearance,Urine Clear (Clear); Bilirubin,Urine Negative (Negative); Blood,Urine Negative (Negative); Color,Urine Yellow; Glucose,Urine (UA) Negative (Negative); Ketones,Urine Negative (Negative); Leukocyte Esterase,Urine Negative (Negative); Nitrite,Urine Negative (Negative); PH, Urine 6.5 (5.0-8.0); Protein,Urine Trace (Negative); Specific Gravity,Urine 1.037 (1.001-1.035); Urobilinogen,Urine <2.0 mg/dL (<2.0)
[2020-08-11] MEDS: carBAMazepine 200 MG TAB PEG/G-TUBE SCH ×3 (00:30→21:28)
[2020-08-11] MEDS: LACOSAMIDE 150 MG TABLET PEG/G-TUBE SCH ×3 (00:30→20:57)
[2020-08-11] MEDS: levETIRAcetam ORAL SOLN 500 MG/5 ML CUP PEG/G-TUBE SCH ×3 (00:31→21:27)
[2020-08-11] MEDS: METOPROLOL TARTRATE 25 MG TAB PEG/G-TUBE SCH ×3 (00:31→20:57)
[2020-08-11] MEDS: MINERAL OIL-WHITE PETROLATUM 120 GM JAR TOPICAL SCH ×4 (00:33→23:42)
[2020-08-11] MEDS: PIPERACILLIN-TAZOBACTAM 3.375 GM in SODIUM CHLORIDE 0.9% 100 ML IVPB SCH ×2 (00:35→10:47)
[2020-08-11] MEDS: BACLOFEN 10 MG TAB PEG/G-TUBE SCH ×4 (00:35→23:41)
[2020-08-11] MEDS: SODIUM CHLORIDE 0.9% 1,000 ML IV SCH ×3 (00:44→20:58)
[2020-08-11] MEDS: OXYBUTYNIN CHLORIDE 5 MG TAB PEG/G-TUBE SCH ×4 (01:40→23:41)
[2020-08-11 05:57] LABS: Anisocytosis Slight; Basophils % (A) 0 %; Eosinophils # (A) 0.7 k/uL (0-0.7); Eosinophils % (A) 8 %; HCT 32.6 % (39.0-53.0); HGB 10.4 gm/dL (13.0-17.5); Hypochromasia Moderate; Lymphocytes % (A) 11 %; MCH 28.5 pg (25.0-35.0); MCHC 31.9 g/dL (31.0-37.0); MCV 89.5 fL (80.0-100.0); Mean Platelet Volume 7.8; Monocytes # (A) 0.5 k/uL (0-1.0); Monocytes % (A) 5 %; Neutrophils # (A) 6.8 k/uL (1.3-7.7); Neutrophils % (A) 74 %; Platelet Count 357 k/uL (150-450); RBC 3.64 m/uL (4.30-5.90); RDW 16.2 % (11.5-15.5); WBC 9.2 k/uL (3.8-10.6)
[2020-08-11] MEDS: IPRATROPIUM-ALBUTEROL 3 ML NEB INHALATION SCH ×4 (07:41→19:37)
[2020-08-11] MEDS ORDERED: CRANBERRY FRUIT PEG/G-TUBE SCH (09:00)
[2020-08-11 09:27] LABS: African American GFR (CKD) 111.7 (60.0-200.0); Anion Gap 10.8 mmol/L (4.00-12.00); BUN/Creat Ratio 12.5 Ratio (12.00-20.00); Calcium 8.5 mg/dL (8.7-10.3); Carbon Dioxide 19.2 mmol/L (21.6-31.8); Non-African American GFR(CKD) 96.4 (60.0-200.0); Potassium 3.7 mmol/L (3.5-5.5)
--- NOTE | 2020-08-11 09:35 | CONS ---
CONSULTATION DATE OF SERVICE: 08/10/2020 REASON FOR CONSULTATION: Sepsis and possible aspiration pneumonia. HISTORY OF PRESENT ILLNESS: The patient is a 60-year-old male with a past medical history significant for multiple sclerosis and group home resident in this patient who did have a history of recurrent aspiration pneumonia and UTI. The patient has been sent to the ER at [facility] for evaluation of fast breathing that apparently started getting worse today. The patient also have a congested cough but no clear history of any nausea, vomiting or choking on the food or any diarrhea. With these symptoms, the patient was evaluated by the ER physician. On arrival to the ER, the patient did have a low-grade fever of 99.7. The patient did have mild tachycardia and the patient was also hypoxic requiring supplemental oxygen. The patient did have a white count of 14.9. D-dimer was elevated, liver enzymes are normal. Urine was negative. The Eng and influenza PCR was negative. The patient did have a chest x-ray which did show stable ovoid masslike right lung base opacity. Subsequently, the patient did have a CT angiogram of the chest that has been negative for PE; however, did show bibasilar atelectasis or airspace disease currently in the right lower lobe. Patient was started on Zosyn. Has been admitted to the hospital. Infectious Disease was consulted for further management of antibiotic therapy. Most information has been obtained from review of the chart as the patient is unable to provide any history and no family member at the bedside. REVIEW OF SYSTEMS: Positive points mentioned in HPI. Complete review of systems could not be obtained because of underlying mental illness. PAST MEDICAL HISTORY: DVT, hypertension, multiple sclerosis, recurrent pneumonia and UTIs. PAST SURGICAL HISTORY: Tonsillectomy, PEG tube placement in view of the pressure ulcer of sacral area. SOCIAL HISTORY: No history of smoking or taking drugs. A group home resident. FAMILY HISTORY: Father history of MN. Mother with history of hypertension and MN. ALLERGIES: To MEROPENEM. MEDICATIONS: Include the patient is currently on Tylenol, Ventolin, DuoNeb, , aspirin, baclofen, Tegretol, Colace, Robitussin, Motrin, , Lopressor, Eucerin cream. PHYSICAL EXAMINATION: Blood pressure is 121/83 with a pulse of 77, temperature 98.2, he is 96% on 3 L nasal cannula. General description is a middle-aged male, lying in bed in no distress. No tachypnea or accessory muscle for respiration use. HEENT: Examination shows slight pallor. No scleral icterus. Oral mucosa membrane is dry. NECK: Trachea central, no thyromegaly. LUNGS: Unlabored breathing. Coarse breath sounds bilaterally, no wheeze. HEART: S1, S2. Regular rate and rhythm. ABDOMEN: Soft, no tenderness. LABS: Hemoglobin is 10.7, white count of 14.9, BUN of 14, creatinine 0.75. Urine is negative. Chest x-ray and CT with right lower lobe pneumonia. DIAGNOSTIC IMPRESSION: 1. Patient admitted to the hospital with tachypnea, elevated white count. Concern likely for right lower lobe aspiration pneumonia in this patient with underlying MS and history of recurrent aspiration pneumonia in this patient who is a group home resident, will need to cover for the resistant gram-negative with likely pathogen. 2. MEROPENEM allergy. PLAN: 1. We will try to obtain sputum for Gram stain and culture. 2. Zosyn 3.75 g q.8 hours. 3. Will follow on his clinical condition and culture to further adjust medication if needed. Thank you for this consultation. Will follow this patient along with you. MMODL / IJN: [id number] /
[2020-08-11] MEDS: ASPIRIN 81 MG PEG/G-TUBE SCH (10:45)
[2020-08-11] MEDS: CHOLECALCIFEROL 1,000 UNIT TAB PEG/G-TUBE SCH (10:45)
[2020-08-11] MEDS: PANTOPRAZOLE SODIUM 40 MG GRANULE PKT PEG/G-TUBE SCH (10:53)
--- NOTE | 2020-08-11 12:52 | P.PN ---
Subjective Progress Note Date: 08/11/20 Patient was seen for a follow-up. Laying comfortably in the bed. No seizures reported. Objective - Vital Signs Vital signs: Vital Signs Temp 98.2 F 08/11/20 05:00 Pulse 80 08/11/20 11:51 Resp 18 08/11/20 05:00 BP 146/84 08/11/20 05:00 Pulse Ox 98 08/11/20 05:00 Intake & Output 08/10/20 08/11/20 08/11/20 18:59 06:59 18:59 Intake Total 0 Output Total 1000 1000 Balance -1000 -1000 Intake: Oral 0 Output: Urine 1000 1000 Other: Voiding Method Indwelling Catheter Indwelling Catheter - Exam Unchanged. No seizures witnessed. - Labs CBC & Chem 7: 08/11/20 05:25 08/11/20 05:25 Labs: Abnormal Lab Results - Last 24 Hours (Table) 08/10/20 08/11/20 08/11/20 Range/Units 16:48 05:25 05:25 RBC 3.64 L (4.30-5.90) m/uL Hgb 10.4 L (13.0-17.5) gm/dL Hct 32.6 L (39.0-53.0) % RDW 16.2 H (11.5-15.5) % Carbon Dioxide 19.2 L (21.6-31.8) mmol/L Calcium 8.5 L (8.7-10.3) mg/dL Ur Specific [place] 1.037 H (1.001-1.035) Urine Protein Trace H (Negative) Microbiology - Last 24 Hours (Table) 08/10/20 02:46 Blood Culture Gram Stain - Preliminary Blood 08/10/20 16:48 Urine Culture - Preliminary Urine,Catheterized 08/10/20 02:46 Blood Culture - Final Blood Assessment and Plan Assessment: * Localization-related epilepsy, currently stable. No breakthrough seizures reported. * Advanced multiple sclerosis, severe dementia, nonverbal state, bedridden. * Possible COPD exacerbation * History of back but his ulcers, * Dysphagia, status post PEG tube placement. Plan: * Continue same dose of seizure medications including Tegretol 200 mg every 12 hours, Vimpat 150 mg twice a day and Keppra 1000 mg twice a day. * Patient has been seizure-free. * Please call neurology if patient has any breakthrough seizures. * Your medical management for COPD and other medical conditions.
--- NOTE | 2020-08-11 14:15 | CDI ---
Documentation Clarification Form Date: 08/11/2020 01:54:00 PM From: Negin Salgado RN CCDS Admit Date: 08/11/2020 10:35:00 AM Patient Name: Chris Marvin Visit Number: [id number] Discharge Date: ATTENTION: The Clinical Documentation Specialists (CDI) and [facility] Coding Staff appreciate your assistance in clarifying documentation. Please respond to the clarification below the line at the bottom and electronically sign. The CDI & [facility] Coding staff will review the response and follow-up if needed. Please note: Queries are made part of the Legal Health Record. If you have any questions, please contact the author of this message via ITS. Dr. Dara Crowe Protein Calorie Malnutrition has been documented in the H&P 08/10 History/Risk Factors: 60-year-old male presents to the ED for shortness of breath and rapid breathing from ECF. Medical History of: Advanced MS; Bedridden; Severe dementia; Epilepsy; and Chronic DVT Clinical Indicators: 08/10 Labs: NA 135, K 3.7, Glucose 88 Current BMI: 15.8kg Dietary Assessment 08/11 Nutrition Intake poor, Pt NPO has PEG tube. Physical Appearance: Underweight Moderate clavicle and temporal muscle wasting. Weight estimated by staff 49.895 kg; Height 5ft 10in; BMI: Underweight; Calculated Mode Body weight: 75 kg; % Mode Body Weight % 67%; Last admission 08/03 weight 65.771 Current weight 49.895 not accurate spoke with RN at [facility] patient was 70.5 kg on 08/06. Nutrition goals increased po intake from 50% to 75%. Meeting 75% of estimated nutritional needs. Tolerating tube feed at goal rate. Treatment: Dietary Consult: See above PPN/TPN: Vital AF 1.2 at 60ml/hr. 30mL free water flush every 4 hours. Start at 10ml/hr and increase by 10 ml/hr every 8 hours as tolerated. Lab monitoring: Chemistry In your professional opinion, can you please clarify if these findings signify one of the following conditions? Moderate Protein-Calorie Malnutrition Severe Protein-Calorie Malnutrition Other condition, please specify Unable to determine (Last Revision: March 2019) NONE MTDD
--- NOTE | 2020-08-11 17:23 | PN ---
PROGRESS NOTE DATE OF SERVICE: 08/11/2020 This 60-year-old gentleman admitted with COPD, acute exacerbation, as well as bilateral pneumonia, aspiration pneumonia. COVID-19 and influenza were negative. The patient has tube feeds. Neurology and Infectious Disease saw the patient. Past medical history reviewed. Review of systems could not be taken because of the patient's change in mental status. CURRENT MEDICATIONS: Current are reviewed and include Ventolin, DuoNeb, Symmetrel, aspirin, Lioresal, Cozaar, Tegretol, Colace, Robitussin, Motrin, Vimpat, Keppra, Levaquin, lopressor, Narcan, Ditropan, Protonix, MiraLAX. PHYSICAL EXAMINATION: Patient is alert and oriented x3. Pulse 78, blood pressure 128/79, respiration 18, temperature 98.4, pulse ox 100% on 3 L. HEENT: Conjunctivae normal. NECK: No jugular venous distention. CARDIOVASCULAR SYSTEM: S1, S2 muffled. RESPIRATORY SYSTEM: Breath sounds diminished at the bases. Scattered rhonchi and crackles. ABDOMEN: Soft, non-tender. No mass palpable. LEGS: No edema. No swelling. NERVOUS SYSTEM: No focal deficit. LABS: WBC 9.2, hemoglobin 10.4, sodium 136, potassium 3.7. ASSESSMENT: 1. Chronic obstructive pulmonary disease, acute exacerbation, with acute bilateral pneumonia, possibly aspiration pneumonia. 2. COVID-19 and influenza negative. 3. History of extended-spectrum beta-lactamase as well as methicillin-resistant Staphylococcus aeruginosa. 4. Change in mental status, acute on chronic metabolic encephalopathy, multifactorial. 5. Acute hypoxic respiratory failure, present on admission. 6. History of recent aspiration pneumonia, respiratory failure. 7. Severe cognitive impairment. 8. History of decubitus ulcer. 9. Chronic advanced multiple sclerosis. 10.PEG tube feeding. 11.Chronic deep vein thrombosis. 12.Gastroesophageal reflux disease. 13.Degenerative joint disease. 14.History of chronic neurogenic bladder and indwelling catheter. 15.History of medical debility. 16.Chronic dysphagia. 17.History of depression. 18.Partial status epilepticus history. 19.Anemia, normocytic. 20.FULL CODE. RECOMMENDATIONS AND DISCUSSION: I recommend to continue current medications, continue with the monitoring, symptomatic treatment. Continue with the bronchodilators. Continue with the antibiotics. Aspiration precautions. Head of the bed elevated to 45 degrees all the time. Follow closely with Infectious Disease and Neurology and Pulmonology. Guarded prognosis. Further recommendations to follow. See orders for further details. MMODL / IJN: [id number] /
[2020-08-11] MEDS: LEVOFLOXACIN 500 MG TAB PO SCH (17:30)
--- NOTE | 2020-08-11 17:41 | CONS ---
CONSULTATION PULMONARY/CRITICAL CARE CONSULTATION: DATE OF SERVICE: 08/11/2020. REASON FOR CONSULTATION: Difficulty in breathing/abnormal breathing. This is a 60-year-old gentleman, well known to our service. He has a history of long- standing multiple sclerosis. The patient has been in and out of the hospital multiple times, even to the point of requiring intubation and mechanical ventilation for hypoxemic respiratory failure and aspiration pneumonia. The patient apparently resides at [facility]. The patient was apparently brought to the emergency room for breathing fast. The patient is nonverbal. This is his baseline. Apparently, according to the staff at the [place] [facility], the patient was breathing more rapidly than normal. He appeared to be short of breath. I am not sure if they measured a saturation or anything else. Again, no additional history could be obtained. Clinically the patient looks about the way he normally does. He is nonverbal. He is currently on oxygen at 3 L. His saturation is 100%. His respiratory rate is 18. HOME MEDICATIONS: Reviewed. He is on amantadine, vitamin D3, Colace, guaifenesin, Tylenol, omeprazole, metoprolol, Ditropan, MiraLAX, DuoNeb, albuterol inhaler, Baclofen, Hydrocerin cream, Vimpat, cranberry fruit capsule, DuoNeb, Tegretol and Keppra. Also on a baby aspirin. ALLERGIES: MEROPENEM. PAST MEDICAL HISTORY: Past medical history includes deep venous thrombosis, acute hypoxemic respiratory failure secondary to aspiration requiring intubation and mechanical ventilation, gastroesophageal reflux disease, hypertension, multiple sclerosis, multiple episodes of pneumonia, urinary tract infection with sepsis, chronic cognitive impairment, dysphagia, status post PEG tube placement, flexion contractures, trigeminal neuralgia, neurogenic bladder, fecal incontinence, decubitus ulcers, chronic anemia, epistaxis, and DVT in his upper extremities. PAST SURGICAL HISTORY: Surgical history includes bronchoscopy and tonsillectomy as well as J-tube placement, incision and drainage of his coccyx, and bilateral LASIK surgery. The patient also has a previous history of extended-spectrum beta lactamase producing infections and methicillin-resistant Staph aureus infections as well. SOCIAL HISTORY: Negative tobacco use. No alcohol use or illicit drug use. FAMILY HISTORY: Positive for myocardial infarction and mother's history is consistent with myocardial infarction and hypertension. REVIEW OF SYSTEMS: Review of systems cannot be obtained. PHYSICAL EXAMINATION: VITAL SIGNS: Current vital signs include temperature 98.4, T-max 99.7, heart rate 78, respiratory rate 18, blood pressure 128/79, mean 95, and three-liter saturation is 100%. GENERAL APPEARANCE: Appears in no acute distress. Nasal oxygen in place. No respiratory distress. HEENT: Examination is grossly unremarkable. NECK: Supple. Full range of motion. CARDIOVASCULAR: Examination reveals regular rhythm and rate. Heart rate 78 beats per minute. S1, S2 normal. LUNGS: Lungs reveal a few scattered rhonchi. No wheezes or crackles. ABDOMEN: Soft. PEG tube noted. EXTREMITIES: Intact. There are flexion contractures. Minimal edema. Skin without rash. A few areas of ecchymoses. NEUROLOGIC: Neurologic condition is difficult to assess. He is nonverbal. He does not respond to any verbal stimuli. His extremity movements are limited. He is contracted. LABORATORY DATA: Reviewed. White count 9.2, hemoglobin 10.4, hematocrit 32.6, platelet count 357,000. PT, INR, PTT normal. D-dimer 2.99. Sodium, potassium normal. Chloride is 106, CO2 19.2. Anion gap is 10.8. BUN and creatinine were 10 and 0.8. Urine is clean. Coronavirus testing was negative, as were influenza studies. Blood and urine specimens are negative. Chest x-ray done on 08/10/2020 shows some basilar atelectatic changes and what appears to be a pseudotumor in the right mid lung. A chest CT was also done. It showed bibasilar atelectasis, unchanged from prior. There appears to be a pseudotumor in the right mid lung, probably in a minor fissure. There is some mildly enlarged mediastinal and right hilar nodes, likely reactive. CURRENT MEDICATIONS: Current medications are reviewed. He is on Tylenol, albuterol updrafts, amantadine, aspirin, baclofen, Tegretol, vitamin D3, Colace, guaifenesin, Motrin, DuoNeb, Vimpat, Keppra, metoprolol, mineral oil, Narcan, oxybutynin, Protonix, Zosyn and saline IV. ASSESSMENT: 1. No obvious or clear-cut respiratory impairment at this time, including pneumonia. 2. History of chronic aspiration. 3. Previous episodes of hypoxemic respiratory failure requiring intubation and mechanical ventilation. 4. History of upper extremity deep venous thrombosis. 5. Gastroesophageal reflux disease. 6. Hypertension. 7. Multiple sclerosis. 8. Multiple previous episodes of pneumonia. 9. Chronic cognitive impairment. 10.Chronic flexion contractures of extremities. 11.Multiple episodes of urinary tract infection and pneumonia, including MRSA infections and extended-spectrum beta lactamase-producing infections. 12.Chronic anemia. 13.Fecal and urinary incontinence. 14.Status post PEG tube placement. PLAN: I do not believe the patient would benefit at this time from antibiotics. I really do not see much change in the patient from previous visits. The patient actually looks clinically stable. Oxygenation is good. Chest x-ray is clear. CT scan did not show an abnormality. I will discontinue the IV antibiotic in favor of an oral antibiotic for a short course. No additional recommendations are made. Prognosis is poor. MMODL / IJN: [id number] /
--- NOTE | 2020-08-11 22:57 | PN ---
PROGRESS NOTE DATE OF SERVICE: 08/11/2020 REASON FOR FOLLOWUP: Aspiration pneumonia. INTERVAL HISTORY: The patient is currently afebrile. The patient is breathing more comfortably. He is hemodynamically stable. No vomiting has been reported, and he has been restarted on his tube feed. PHYSICAL EXAMINATION: Blood pressure is 126/77, pulse 81, temperature 98.2. He is 100% on 3 L nasal cannula. General description is a middle-aged male lying in bed in no distress. RESPIRATORY SYSTEM: Unlabored breathing with decreased breath sounds at the base. No wheeze. HEART: S1, S2. Regular rate and rhythm. ABDOMEN: Soft. No tenderness. EXTREMITIES: No edema of the feet. LABS: Hemoglobin is 10.4, white count 9.2, creatinine 0.8. Urine is negative. DIAGNOSTIC IMPRESSION AND PLAN: Patient admitted to hospital with tachypnea and hypoxemia with evidence of pneumonia, possible aspiration in etiology. The patient did respond to Zosyn and Levaquin. However, Zosyn has been discontinued by the pulmonary team. Patient will be monitored closely. Currently on Levaquin only. Continue with supportive care. MMODL / IJN: [id number] /
[2020-08-12] MEDS: IPRATROPIUM-ALBUTEROL 3 ML NEB INHALATION SCH ×4 (08:26→19:24)
[2020-08-12] MEDS: CHOLECALCIFEROL 1,000 UNIT TAB PEG/G-TUBE SCH (08:38)
[2020-08-12] MEDS: LACOSAMIDE 150 MG TABLET PEG/G-TUBE SCH ×2 (08:38→19:37)
[2020-08-12] MEDS: METOPROLOL TARTRATE 25 MG TAB PEG/G-TUBE SCH ×2 (08:38→19:36)
[2020-08-12] MEDS: ASPIRIN 81 MG PEG/G-TUBE SCH (08:38)
[2020-08-12] MEDS: carBAMazepine 200 MG TAB PEG/G-TUBE SCH ×2 (08:39→19:37)
[2020-08-12] MEDS: BACLOFEN 10 MG TAB PEG/G-TUBE SCH ×3 (08:39→23:37)
[2020-08-12] MEDS: OXYBUTYNIN CHLORIDE 5 MG TAB PEG/G-TUBE SCH ×3 (08:39→23:37)
[2020-08-12] MEDS: levETIRAcetam ORAL SOLN 500 MG/5 ML CUP PEG/G-TUBE SCH ×2 (08:40→19:37)
[2020-08-12] MEDS: PANTOPRAZOLE SODIUM 40 MG GRANULE PKT PEG/G-TUBE SCH (08:40)
[2020-08-12] MEDS: MINERAL OIL-WHITE PETROLATUM 120 GM JAR TOPICAL SCH ×3 (08:42→23:37)
[2020-08-12] MEDS: SODIUM CHLORIDE 0.9% 1,000 ML IV SCH (08:51)
[2020-08-12 10:48] LABS: BUN/Creat Ratio 14.29 Ratio (12.00-20.00); Calcium 8.4 mg/dL (8.7-10.3); Non-African American GFR(CKD) 101.9 (60.0-200.0); Potassium 3.8 mmol/L (3.5-5.5)
[2020-08-12 13:25] LABS: Basophils % (A) 0 %; Eosinophils # (A) 0.6 k/uL (0-0.7); Eosinophils % (A) 10 %; HCT 31.9 % (39.0-53.0); Hypochromasia Moderate; Lymphocytes % (A) 16 %; MCH 27.9 pg (25.0-35.0); MCHC 31.3 g/dL (31.0-37.0); MCV 89.2 fL (80.0-100.0); Mean Platelet Volume 8.4; Monocytes # (A) 0.5 k/uL (0-1.0); Monocytes % (A) 7 %; Neutrophils % (A) 65 %; Platelet Count 379 k/uL (150-450); RBC 3.57 m/uL (4.30-5.90); WBC 6.1 k/uL (3.8-10.6)
--- NOTE | 2020-08-12 14:25 | P.PN ---
Subjective Progress Note Date: 08/12/20 Principal diagnosis: Tachypnea 60-year-old white male patient with known history of advanced multiple sclerosis, severe medical debility, chronic cognitive impairment, dysphagia, recurrent aspiration pneumonia requiring intubation and placement on mechanical ventilation, who was recently hospitalized for aspiration pneumonia and patient was on the ventilator, but was successfully weaned and extubated. After discharge He went to [facility], patient has a sister who is his legal guardian. He is nonverbal, she does not follow any commands, has a PEG tube for feedings, and in addition he had multiple previous episodes of urinary tract infection with sepsis. Patient was admitted to the hospital on 08/11/2020 from the [facility], where the nurses thought he was breathing fast and he appeared more dyspneic, chest x-ray did not show any clear evidence of pneumonia. CTA chest was obtained showing bibasilar atelectasis or airspace disease, greater in the right lower lobe similar to the prior exam, and ovoid mass in the right lung related to pseudotumor. And similar small and mildly enlarged hilar and mediastinal lymph nodes. No evidence of pulmonary embolism. Clinically patient has been afebrile, vital signs have been stable, he was started on breathing rosie atments, he is on Levaquin for antibiotic coverage, he is on breathing treatments, he is on his usual seizure medications. He has had no reported seizure activity. Patient has been afebrile, hemodynamically stable, no acute events overnight, he is calm and comfortable, he is awake, is making eye c ontact, but not following commands, appears to be in no distress, lung sounds reveal a few scattered rhonchi, no wheezing, he is tolerating his tube feedings, he currently has vital AF running at 30 ML per hour with a goal of 30. 0.9 normal saline at a rate of 75 ML per hour. Objective - Vital Signs Vital signs: Vital Signs Temp 98.5 F 08/12/20 12:39 Pulse 72 08/12/20 12:49 Resp 18 08/12/20 12:49 BP 130/68 08/12/20 12:39 Pulse Ox 98 08/12/20 12:39 Intake & Output 08/11/20 08/12/20 08/12/20 18:59 06:59 18:59 Intake Total 110 50 50 Output Total 550 Balance -440 50 50 Weight 72 kg Intake: Intake, IV Titration 100 Amount Piperacillin-Tazobactam 3 100 .375 gm In Sodium Chloride 0.9% 100 ml @ 25 mls/hr IVPB Q8HR [facility] Rx# :[id number] Oral 0 Tube Feeding 10 50 50 Output: Urine 550 Other: Voiding Method Indwelling Catheter Indwelling Catheter Indwelling Catheter - Exam GENERAL EXAM: Alert, nonverbal, 60-year-old white male, cachectic currently on 3l/min room air with a pulse ox of 98%, no acute distress EYES: Normal reaction of pupils, equal size. Conjunctiva pink, sclera white. NOSE: Clear with pink turbinates. THROAT: No erythema or exudates. NECK: No masses, no JVD, no thyroid enlargement, no adenopathy. CHEST: No chest wall deformity. Symmetrical expansion. LUNGS: Equal air entry with minimal rhonchi CVS: Regular rate and rhythm, normal S1 and S2, no gallops, no murmurs, no rubs ABDOMEN: Soft, nontender. No hepatosplenomegaly, normal bowel sounds, no guarding or rigidity. PEG tube present in the left upper abdomen, tube feedings are infusing with vital AF at a rate of 30 with a goal of 30, patient is tolerating tube feedings EXTREMITIES: No clubbing, no edema, no cyanosis, 2+ pulses and upper and lower extremities. Chronic contractures involving upper and lower extremities, muscle weakness and overall rigidity MUSCULOSKELETAL: Chronic contractures, muscle wasting SPINE: No scoliosis or deformity SKIN: No rashes CENTRAL NERVOUS SYSTEM: Alert, unable to assess orientation, patient is nonverbal - Labs CBC & Chem 7: 08/12/20 07:06 08/12/20 07:06 Labs: Abnormal Lab Results - Last 24 Hours (Table) 08/12/20 08/12/20 Range/Units 07:06 07:06 RBC 3.57 L (4.30-5.90) m/uL Hgb 10.0 L (13.0-17.5) gm/dL Hct 31.9 L (39.0-53.0) % RDW 16.0 H (11.5-15.5) % Calcium 8.4 L (8.7-10.3) mg/dL Microbiology - Last 24 Hours (Table) 08/10/20 16:48 Urine Culture - Final Urine,Catheterized 08/10/20 02:46 Blood Culture Gram Stain - Preliminary Blood Blood Culture - Preliminary Coagulase Negative Staph Assessment and Plan Plan: Assessment: #1. Tachypnea, dyspnea, with no clear evidence of pneumonia, patient is on empiric antibiotics in the form of Levaquin #2. History of chronic aspiration, the patient has a PEG tube for feedings #3. Previous episodes of hypoxemic respiratory failure due to aspiration pneumonia, requiring intubation and mechanical ventilation #4. Severe advanced multiple sclerosis with cognitive impairment, speech impa irment, muscle atrophy, rigidity, chronic contractures, urinary and bowel incontinence, and gait impairment #5. Recent history of Proteus mirabilis urinary tract infection #6. Previous hospitalization for aspiration pneumonia, and recurrent UTIs related to gram-negative organisms and BSO producing E. coli in the urine #7. Chronic dysphagia #8. Poor baseline functional status, patient is bedridden, and resides in a group home #9. History of seizure disorder Plan: Continue current antibiotic coverage, clinically patient is stable, his been afebrile, vital signs have been stable, no fever or chills, he is at his baseline with breathing, he is tolerating tube feedings, chest x-ray and CTA chest did not show any clear evidence of pneumonia, but he can finish oral course of antibiotics, he may return to the [facility] today from pulmonary perspective, maintain aspiration precautions, continue bronchodilators I performed a history & physical examination of the patient and discussed their management with my nurse practitioner, Naheed Pace. I reviewed the nurse rena lugo's note and agree with the documented findings and plan of care. Lung sounds are positive for a few scattered rhonchi. The findings and the impression was discussed with the patient. I attest to the documentation by the nurse practitioner. Time with Patient: Less than 30
--- NOTE | 2020-08-12 15:16 | XR ---
EXAMINATION TYPE: XR chest 1V portable DATE OF EXAM: 08/12/2020 CLINICAL HISTORY: Difficulty breathing progress study. TECHNIQUE: Single AP portable frontal view of the chest is obtained. COMPARISON: Chest x-ray from [address] chest July 29, 2020 FINDINGS: Persistent chronic parenchymal changes bilaterally with right basilar mass. Persistent low lung volumes. No new suspicious focal airspace opacity, pleural effusion, or pneumothorax. Cardiac s ilhouette size stable and upper limits of normal. Osseous structures remain demineralized. Old fractu re deformity of the posterior left fourth rib redemonstrated. IMPRESSION: Chronic changes without new suspicious acute pulmonary process.
[2020-08-12] MEDS: LEVOFLOXACIN 500 MG TAB PO SCH (16:07)
--- NOTE | 2020-08-12 16:38 | P.PN ---
Subjective Progress Note Date: 08/12/20 Patient was seen for a follow-up. Laying comfortably in the bed. No seizures reported. Patient's legal guardian and power of health care attorney was also present. She has seen no seizures. Objective - Vital Signs Vital signs: Vital Signs Temp 98.5 F 08/12/20 12:39 Pulse 72 08/12/20 16:08 Resp 18 08/12/20 15:43 BP 130/68 08/12/20 12:39 Pulse Ox 98 08/12/20 15:43 Intake & Output 08/11/20 08/12/20 08/12/20 18:59 06:59 18:59 Intake Total 110 50 110 Output Total 550 1000 Balance -440 50 -890 Weight 72 kg 73.5 kg Intake: Intake, IV Titration 100 Amount Piperacillin-Tazobactam 3 100 .375 gm In Sodium Chloride 0.9% 100 ml @ 25 mls/hr IVPB Q8HR [facility] Rx# :[id number] Oral 0 Tube Feeding 10 50 110 Output: Urine 550 1000 Uretheral (Stein) 600 Other: Voiding Method Indwelling Catheter Indwelling Catheter Indwelling Catheter - Exam Patient is laying comfortably in the bed. He is awake. Patient is spastic quadriparetic. Detail examination deferred. No seizures visible. - Labs CBC & Chem 7: 08/12/20 07:06 08/12/20 07:06 Labs: Abnormal Lab Results - Last 24 Hours (Table) 08/12/20 08/12/20 Range/Units 07:06 07:06 RBC 3.57 L (4.30-5.90) m/uL Hgb 10.0 L (13.0-17.5) gm/dL Hct 31.9 L (39.0-53.0) % RDW 16.0 H (11.5-15.5) % Calcium 8.4 L (8.7-10.3) mg/dL Microbiology - Last 24 Hours (Table) 08/10/20 16:48 Urine Culture - Final Urine,Catheterized 08/10/20 02:46 Blood Culture Gram Stain - Preliminary Blood Blood Culture - Preliminary Coagulase Negative Staph Assessment and Plan Assessment: * Localization-related epilepsy, currently stable. No breakthrough seizures reported. * Advanced multiple sclerosis, severe dementia, nonverbal state, bedridden. * Possible COPD exacerbation * History of back decubitus ulcers, * Dysphagia, status post PEG tube placement. Plan: * Continue same dose of seizure medications including Tegretol 200 mg every 12 hours, Vimpat 150 mg twice a day and Keppra 1000 mg twice a day. * Patient has been seizure-free. * Please call neurology if patient has any breakthrough seizures. * Your medical management for COPD and other medical conditions. * Discussed with patient's medical power of health care attorney. Uncertain her questions. * Neurology will sign off. Please call neurology if any further concerns.
--- NOTE | 2020-08-12 17:19 | PN ---
PROGRESS NOTE DATE OF SERVICE: 08/12/2020 This is a 60-year-old gentleman who was admitted with COPD acute exacerbation as well as acute bilateral pneumonia, possibly aspiration pneumonia is being closely monitored. The patient started on broad spectrum IV antibiotics. Dr. Farah and Dr. Hawkins are following the patient closely. The patient also had right interlobar effusion also possibly which was noted from July x-rays also. The patient's sister who is the power of sports attorney, Dot, had several concerns with whom I had a detailed discussion today. PAST MEDICAL HISTORY: Reviewed. REVIEW OF SYSTEMS: Could not be taken. CURRENT MEDICATIONS: Reviewed and include: Tylenol, DuoNeb, Symmetrel, aspirin, Lioresal, Levaquin. Doses reviewed. PHYSICAL EXAMINATION: The pulse is 70, blood pressure 130/68, respiration 18, temperature 98.2, pulse ox 98% on 3 L. HEENT: Conjunctivae normal. NECK: No jugular venous distension. CARDIOVASCULAR SYSTEM: S1, S2, muffled. RESPIRATION: Breath sounds diminished at the bases, a few scattered rhonchi, no crackles. ABDOMEN: Soft, nontender. LEGS: No edema, no swelling. NERVOUS SYSTEM: Diffusely weak. LABS: WBC 6.2, hemoglobin 10.1. COVID-19 is negative. ASSESSMENT: 1. COPD acute exacerbation with acute bilateral pneumonia, possibly aspiration pneumonia. 2. COVID-19 influenza and influenza negative. 3. History of ESBL and MRSA previously. 4. Change in mental status, acute on chronic metabolic encephalopathy, multifactorial. 5. Acute hypoxic respiratory failure, present on admission. 6. Right interlobar pleural effusion, rather stable. 7. History of recent aspiration pneumonia, respiratory failure. 8. Severe cognitive impairment. 9. History of decubitus ulcer. 10.History of advanced multiple sclerosis. 11.PEG tube feeding. 12.Chronic deep vein thrombosis. 13.Gastroesophageal reflux disease. 14.DJD. 15.History of chronic neurogenic bladder with indwelling catheter. 16.History medical debility. 17.Chronic dysphagia. 18.History of depression. 19.Partial status epilepticus history. 20.Anemia, normocytic. 21.FULL CODE. RECOMMENDATION: Recommend to continue current medications. Continue symptomatic treatment. Continue the antibiotics. Continue with head of the bed elevated at 45 degrees all the time. I discussed the case as mentioned earlier with Dot, the patient's sister and power of sports attorney. She had several concerns. She had concerns about long-term antibiotic which I recommended will not be a good strategy in this patient with several comorbidities. I have recommended her to keep the head of the bed elevated to 45 degrees all the time and aspiration precautions. I also recommended a chest x-ray in a month or two and continue to monitor regarding the right interlobar effusion and also follow with Pulmonary, Dr. Hawkins, as an outpatient treatment for continued followup of the intralobar effusion. Otherwise prognosis extremely guarded. Further recommendation to follow. MMODL / IJN: [id number] /
--- NOTE | 2020-08-12 23:21 | PN ---
PROGRESS NOTE DATE OF SERVICE: 08/12/2020 REASON FOR FOLLOWUP: Pneumonia. INTERVAL HISTORY: The patient is currently afebrile. The patient is breathing comfortably. He seems to be slightly more awake and alert. No vomiting or diarrhea or any of his tube feeds have been reported by nursing staff. PHYSICAL EXAMINATION: Blood pressure 123/73 with a pulse of 78, temperature 96.6. He is 96% on 2 L nasal cannula. General description is a middle-aged male lying in bed in no distress. RESPIRATORY SYSTEM: Unlabored breathing, decreased breath sounds at the bases. No wheeze. HEART: S1, S2. Regular rate and rhythm. ABDOMEN: Soft, no tenderness. LABS: Hemoglobin is 10, white count 6.1, BUN of 10, creatinine 0.7. Blood culture with coagulase negative staph. DIAGNOSTIC IMPRESSION AND PLAN: 1. Patient with positive blood culture with coagulase negative Staph likely skin contaminant. Blood cultures will be repeated to document findings. 2. Patient with possible pneumonia covered with Levaquin and seems to have shown overall clinical improvement, to continue and monitor clinical course closely. MMODL / IJN: [id number] /
[2020-08-13] MEDS: SODIUM CHLORIDE 0.9% 1,000 ML IV SCH ×2 (04:54→13:16)
[2020-08-13 06:44] LABS: Glucose,Whole Blood 122 mg/dL (75-99)
[2020-08-13 07:30] LABS: Basophils % (A) 0 %; Eosinophils # (A) 0.5 k/uL (0-0.7); Eosinophils % (A) 10 %; HCT 29.9 % (39.0-53.0); HGB 9.6 gm/dL (13.0-17.5); Hypochromasia Slight; Lymphocytes # (A) 0.9 k/uL (1.0-4.8); Lymphocytes % (A) 17 %; MCH 27.8 pg (25.0-35.0); MCHC 32.2 g/dL (31.0-37.0); MCV 86.4 fL (80.0-100.0); Mean Platelet Volume 7.5; Monocytes # (A) 0.4 k/uL (0-1.0); Monocytes % (A) 8 %; Neutrophils # (A) 3.4 k/uL (1.3-7.7); Neutrophils % (A) 63 %; Platelet Count 355 k/uL (150-450); RBC 3.46 m/uL (4.30-5.90); RDW 15.5 % (11.5-15.5); WBC 5.4 k/uL (3.8-10.6)
[2020-08-13] MEDS: IPRATROPIUM-ALBUTEROL 3 ML NEB INHALATION SCH ×3 (07:35→14:54)
[2020-08-13] MEDS: BACLOFEN 10 MG TAB PEG/G-TUBE SCH ×2 (09:31→16:09)
[2020-08-13] MEDS: PANTOPRAZOLE SODIUM 40 MG GRANULE PKT PEG/G-TUBE SCH (09:31)
[2020-08-13] MEDS: OXYBUTYNIN CHLORIDE 5 MG TAB PEG/G-TUBE SCH ×2 (09:32→16:09)
[2020-08-13] MEDS: MINERAL OIL-WHITE PETROLATUM 120 GM JAR TOPICAL SCH (09:32)
[2020-08-13] MEDS: ASPIRIN 81 MG PEG/G-TUBE SCH (09:32)
[2020-08-13] MEDS: carBAMazepine 200 MG TAB PEG/G-TUBE SCH (09:33)
[2020-08-13] MEDS: levETIRAcetam ORAL SOLN 500 MG/5 ML CUP PEG/G-TUBE SCH (09:33)
[2020-08-13] MEDS: METOPROLOL TARTRATE 25 MG TAB PEG/G-TUBE SCH (09:34)
[2020-08-13] MEDS: CHOLECALCIFEROL 1,000 UNIT TAB PEG/G-TUBE SCH (09:39)
[2020-08-13] MEDS: LACOSAMIDE 150 MG TABLET PEG/G-TUBE SCH (10:46)
[2020-08-13 11:04] LABS: African American GFR (CKD) 125.8 (60.0-200.0); Anion Gap 7.8 mmol/L (4.00-12.00); Carbon Dioxide 23.2 mmol/L (21.6-31.8); Non-African American GFR(CKD) 108.5 (60.0-200.0); Potassium 3.5 mmol/L (3.5-5.5)
[2020-08-13 13:27] VITALS: BP 128/73; RESP 18; TEMP 98
[2020-08-13 13:37] VITALS: BMI 23.6
[2020-08-13 13:37] LABS: Glucose,Whole Blood 111 mg/dL (75-99)
--- NOTE | 2020-08-13 14:21 | P.PN ---
Subjective Progress Note Date: 08/13/20 Principal diagnosis: Tachypnea 60-year-old white male patient with known history of advanced multiple sclerosis, severe medical debility, chronic cognitive impairment, dysphagia, recurrent aspiration pneumonia requiring intubation and placement on mechanical ventilation, who was recently hospitalized for aspiration pneumonia and patient was on the ventilator, but was successfully weaned and extubated. After discharge He went to [facility], patient has a sister who is his legal guardian. He is nonverbal, she does not follow any commands, has a PEG tube for feedings, and in addition he had multiple previous episodes of urinary tract infection with sepsis. Patient was [facility] where the nurses thought he was breathing fast and he appeared more dyspneic, chest x-ray did not show any clear evidence of pneumonia. CTA chest was obtained showing bibasilar atelectasis or airspace disease, greater in the right lower lobe similar to the prior exam, and ovoid mass in the right lung related to pseudotumor. And similar small and mildly enlarged hilar and mediastinal lymph nodes. No evidence of pulmonary embolism. Clinically patient has been afebrile, vital signs have been stable, he was started on breathing rosie atments, he is on Levaquin for antibiotic coverage, he is on breathing treatments, he is on his usual seizure medications. He has had no reported seizure activity. Patient has been afebrile, hemodynamically stable, no acute events overnight, he is calm and comfortable, he is awake, is making eye c ontact, but not following commands, appears to be in no distress, lung sounds reveal a few scattered rhonchi, no wheezing, he is tolerating his tube feedings, he currently has vital AF running at 30 ML per hour with a goal of 30. 0.9 normal saline at a rate of 75 ML per hour. On 08/13/2020 patient seen in follow-up on general medical surgical floor, has remained stable overnight, he is resting comfortably in bed, is nonverbal, but there is no signs of any respiratory difficulty, he is on 2 L of oxygen pulse ox of 90%, hemodynamically stable, his been afebrile, lung sounds reveal some minimal rhonchi, no wheezing, no crackles, his blood and sputum cultures were reviewed, only showing coagulase-negative staph in the blood culture likely contaminated sample. He is tolerating tube feedings, he remains on Levaquin for empiric antibiotic coverage, he is on nebulized bronchodilators, his labs have been reviewed showing no evidence of leukocytosis, with blood cell count is 5.4, hemoglobin is 9.6, electrolytes and renal profile were all within normal limits. From pulmonary perspective he can be [facility] Objective - Vital Signs Vital signs: Vital Signs Temp 98.0 F 08/13/20 13:00 Pulse 85 08/13/20 13:00 Resp 18 08/13/20 13:00 BP 128/73 08/13/20 13:00 Pulse Ox 98 08/13/20 13:00 Intake & Output 08/12/20 08/13/20 08/13/20 18:59 06:59 18:59 Intake Total 110 2490 450 Output Total 1000 850 Balance -890 1640 450 Weight 73.5 kg 74.5 kg Intake: Intake, IV Titration 340 Amount Sodium Chloride 0.9% 1, 340 000 ml @ 75 mls/hr IV . [id number] [facility] Rx#:[id number] Oral 0 Tube Feeding 110 2150 450 Output: Urine 1000 850 Uretheral (Stein) 600 400 Other: Voiding Method Indwelling Catheter Indwelling Catheter Indwelling Catheter # Bowel Movements 0 - Exam GENERAL EXAM: Alert, nonverbal, 60-year-old white male, cachectic currently on 3l/min room air with a pulse ox of 98%, no acute distress EYES: Normal reaction of pupils, equal size. Conjunctiva pink, sclera white. NOSE: Clear with pink turbinates. THROAT: No erythema or exudates. NECK: No masses, no JVD, no thyroid enlargement, no adenopathy. CHEST: No chest wall deformity. Symmetrical expansion. LUNGS: Equal air entry with minimal rhonchi CVS: Regular rate and rhythm, normal S1 and S2, no gallops, no murmurs, no rubs ABDOMEN: Soft, nontender. No hepatosplenomegaly, normal bowel sounds, no guarding or rigidity. PEG tube present in the left upper abdomen, tube feedings are infusing with vital AF at a rate of 30 with a goal of 30, patient is tolerating tube feedings EXTREMITIES: No clubbing, no edema, no cyanosis, 2+ pulses and upper and lower extremities. Chronic contractures involving upper and lower extremities, muscle weakness and overall rigidity MUSCULOSKELETAL: Chronic contractures, muscle wasting SPINE: No scoliosis or deformity SKIN: No rashes CENTRAL NERVOUS SYSTEM: Alert, unable to assess orientation, patient is nonverbal - Labs CBC & Chem 7: 08/13/20 06:59 08/13/20 06:59 Labs: Abnormal Lab Results - Last 24 Hours (Table) 08/13/20 08/13/20 08/13/20 Range/Units 06:43 06:59 06:59 RBC 3.46 L (4.30-5.90) m/uL Hgb 9.6 L (13.0-17.5) gm/dL Hct 29.9 L (39.0-53.0) % Lymphocytes # 0.9 L (1.0-4.8) k/uL Glucose 113 H (70-110) mg/dL POC Glucose (mg/dL) 122 H (75-99) mg/dL Calcium 8.0 L (8.7-10.3) mg/dL 08/13/20 Range/Units 13:36 RBC (4.30-5.90) m/uL Hgb (13.0-17.5) gm/dL Hct (39.0-53.0) % Lymphocytes # (1.0-4.8) k/uL Glucose (70-110) mg/dL POC Glucose (mg/dL) 111 H (75-99) mg/dL Calcium (8.7-10.3) mg/dL Microbiology - Last 24 Hours (Table) 08/10/20 02:46 Blood Culture Gram Stain - Final Blood Blood Culture - Final Coagulase Negative Staph Assessment and Plan Plan: Assessment: #1. Tachypnea, dyspnea, with no clear evidence of pneumonia, patient is on empiric antibiotics in the form of Levaquin #2. History of chronic aspiration, the patient has a PEG tube for feedings #3. Previous episodes of hypoxemic respiratory failure due to aspiration pneumonia, requiring intubation and mechanical ventilation #4. Severe advanced multiple sclerosis with cognitive impairment, speech impairment, muscle atrophy, rigidity, chronic contractures, urinary and bowel incontinence, and gait impairment #5. Recent history of Proteus mirabilis urinary tract infection #6. Previous hospitalization for aspiration pneumonia, and recurrent UTIs related to gram-negative organisms and BSO producing E. coli in the urine #7. Chronic dysphagia #8. Poor baseline functional status, patient is bedridden, and resides in a fpc #9. History of seizure disorder Plan: Patient has remained stable, no difficulty breathing, he is on 2 L, maintaining stable saturations, no evidence of any respiratory distress, last chest x-ray yesterday showed only chronic changes without any new suspicious acute pulmonary process. Tolerating tube feedings, she can be discharged back to the [facility] today I performed a history & physical examination of the patient and discussed their management with my nurse practitioner, Naheed Pace. I reviewed the nurse practitioner's note and agree with the documented findings and plan of care. Lung sounds are positive for a few scattered rhonchi. The findings and the impression was discussed with the patient. I attest to the documentation by the nurse practitioner. Time with Patient: Less than 30
--- NOTE | 2020-08-13 14:44 | P.DS ---
Providers Date of admission: 08/11/20 10:35 Expected date of discharge: 08/13/20 Attending physician: Dara Crowe Consults: 08/10/20 14:22 Consult Physician Routine Consulting Provider: Brenden Hawkins Consult Reason/Comments: pneumonia Do you want consulting provider notified?: Yes 08/10/20 14:23 Consult Physician Routine Consulting Provider: Sonal Farah Consult Reason/Comments: aspiration pneumonia Do you want consulting provider notified?: Yes 08/10/20 14:24 Consult Physician Routine Consulting Provider: Lacie Blount Consult Reason/Comments: seizure Do you want consulting provider notified?: Yes Primary care physician: [facility] Course: 60-year-old white male patient with known history of advanced multiple sclerosis, severe medical debility, chronic cognitive impairment, dysphagia, recurrent aspiration pneumonia requiring intubation and placement on mechanical ventilation, who was recently hospitalized for aspiration pneumonia and patient was on the ventilator, but was successfully weaned and extubated. After discharge He went to [facility], patient has a sister who is his legal guardian. He is nonverbal, she does not follow any commands, has a PEG tube for feedings, and in addition he had multiple previous episodes of urinary tract infection with sepsis. Patient was admitted to the hospital on 08/11/2020 from the [facility], where the nurses thought he was breathing fast and he appeared more dyspneic, chest x-ray did not show any clear evidence of pneumonia. CTA chest was obtained showing bibasilar atelectasis or airspace disease, greater in the right lower lobe similar to the prior exam, and ovoid mass in the right lung related to pseudotumor. And similar small and mildly enlarged hilar and mediastinal lymph nodes. No evidence of pulmonary embolism. Clinically patient has been afebrile, vital signs have been stable, he was started on breathing treatments, he is on Levaquin for antibiotic coverage, he is on breathing treatments, he is on his usual seizure medications. He has had no reported seizure activity. Patient has been afebrile, hemodynamically stable, no acute events overnight, he is calm and comfortable, he is awake, is making eye contact, but not following commands, appears to be in no distress, lung sounds reveal a few scattered rhonchi, no wheezing, he is tolerating his tube feedings, he currently has vital AF running at 30 ML per hour with a goal of 30. 0.9 normal saline at a rate of 75 ML per hour. On 08/13/2020 patient seen in follow-up on general medical surgical floor, has remained stable overnight, he is resting comfortably in bed, is nonverbal, but there is no signs of any respiratory difficulty, he is on 2 L of oxygen pulse ox of 90%, hemodynamically stable, his been afebrile, lung sounds reveal some minimal rhonchi, no wheezing, no crackles, his blood and sputum cultures were reviewed, only showing coagulase-negative staph in the blood culture likely contaminated sample. He is tolerating tube feedings, he remains on Levaquin for empiric antibiotic coverage, he is on nebulized bronchodilators, his labs have been reviewed showing no evidence of leukocytosis, with blood cell count is 5.4, hemoglobin is 9.6, electrolytes and renal profile were all within normal limits. From pulmonary perspective he can be transferred back to the [facility] Patient Condition at Discharge: Serious Plan - Discharge Summary New Discharge Prescriptions: New Levofloxacin [Levaquin] 500 mg PO Q24H #7 tab Continue Cholecalciferol [Vitamin D3 (25 Mcg = 1000 Iu)] 1,000 unit PEG/G-TUBE DAILY Docusate Oral Soln [Colace Oral Soln] 200 mg PEG/G-TUBE Q12H PRN PRN Reason: Constipation Amantadine 50mg/5ml 100 mg PEG/G-TUBE Q12H guaiFENesin [guaiFENesin Oral Solution] 200 mg PEG/G-TUBE Q6H PRN PRN Reason: Cough Acetaminophen Oral Susp [Tylenol] 320 mg PEG/G-TUBE Q6H PRN PRN Reason: Fever And/ Or Pain Omeprazole Magnesium [PriLOSEC Oral Susp] 20 mg PEG/G-TUBE DAILY Metoprolol Tartrate [Lopressor] 75 mg PEG/G-TUBE Q12H polyethylene glycoL 3350 [Miralax] 17 gm PEG/G-TUBE HS PRN PRN Reason: Constipation Oxybutynin Chloride [Ditropan Oral Soln] 5 mg PEG/G-TUBE Q8H Ipratropium-Albuterol Nebulize [Duoneb 0.5 mg-3 mg/3 ml Soln] 3 ml INHALATION RT-QID Albuterol Sulfate [Proair Hfa] 2 puff INHALATION RT-Q4H PRN PRN Reason: Shortness Of Breath Aspirin 81 mg PEG/G-TUBE DAILY chew Lacosamide [Vimpat] 150 mg PEG/G-TUBE Q12H Baclofen [Lioresal] 10 mg PEG/G-TUBE Q8H Hydrocerin Cream 1 applic TOPICAL Q8H Cranberry Fruit Capsule 475mg 1 cap PEG/G-TUBE DAILY levETIRAcetam [Keppra] 1,000 mg PEG/G-TUBE Q12H carBAMazepine [TEGretol] 200 mg PEG/G-TUBE Q12H Ipratropium-Albuterol Nebulize [Duoneb 0.5 mg-3 mg/3 ml Soln] 3 ml INHALATION RT-QID PRN PRN Reason: Shortness Of Breath Pulmocare 1.5 1,105 ml PEG/G-TUBE DIRECTED Discharge Medication List Amantadine 50mg/5ml 100 mg PEG/G-TUBE Q12H 12/28/17 [History] Cholecalciferol [Vitamin D3 (25 Mcg = 1000 Iu)] 1,000 unit PEG/G-TUBE DAILY 12/28/17 [History] Docusate Oral Soln [Colace Oral Soln] 200 mg PEG/G-TUBE Q12H PRN 12/28/17 [History] guaiFENesin [guaiFENesin Oral Solution] 200 mg PEG/G-TUBE Q6H PRN 12/28/17 [History] Acetaminophen Oral Susp [Tylenol] 320 mg PEG/G-TUBE Q6H PRN 01/26/19 [History] Omeprazole Magnesium [PriLOSEC Oral Susp] 20 mg PEG/G-TUBE DAILY 01/26/19 [History] Metoprolol Tartrate [Lopressor] 75 mg PEG/G-TUBE Q12H 07/29/19 [History] Oxybutynin Chloride [Ditropan Oral Soln] 5 mg PEG/G-TUBE Q8H 09/08/19 [History] polyethylene glycoL 3350 [Miralax] 17 gm PEG/G-TUBE HS PRN 09/08/19 [History] Ipratropium-Albuterol Nebulize [Duoneb 0.5 mg-3 mg/3 ml Soln] 3 ml INHALATION RT-QID 12/16/19 [History] Albuterol Sulfate [Proair Hfa] 2 puff INHALATION RT-Q4H PRN 04/14/20 [History] Aspirin 81 mg PEG/G-TUBE DAILY chew 04/15/20 [Rx] Baclofen [Lioresal] 10 mg PEG/G-TUBE Q8H 07/16/20 [History] Hydrocerin Cream 1 applic TOPICAL Q8H 07/16/20 [History] Lacosamide [Vimpat] 150 mg PEG/G-TUBE Q12H 07/16/20 [History] Cranberry Fruit Capsule 475mg 1 cap PEG/G-TUBE DAILY 07/30/20 [History] Ipratropium-Albuterol Nebulize [Duoneb 0.5 mg-3 mg/3 ml Soln] 3 ml INHALATION RT-QID PRN 07/30/20 [History] carBAMazepine [TEGretol] 200 mg PEG/G-TUBE Q12H 07/30/20 [History] levETIRAcetam [Keppra] 1,000 mg PEG/G-TUBE Q12H 07/30/20 [History] Pulmocare 1.5 1,105 ml PEG/G-TUBE DIRECTED 08/10/20 [History] Levofloxacin [Levaquin] 500 mg PO Q24H #7 tab 08/13/20 [Rx] Follow up Appointment(s)/Referral(s): Matteo Hernandez MD [Primary Care Provider] - 1-2 days Activity/Diet/Wound Care/Special Instructions: f/u cxr for interlobar effusion in 1 month hob elevated to 45 degrees always Discharge Disposition: TRANSFER TO SNF/ECF
[2020-08-13 14:56] VITALS: PULSE 80
[2020-08-13] MEDS: LEVOFLOXACIN 500 MG TAB PO SCH (16:09)
--- NOTE | 2020-08-13 17:58 | PN ---
PROGRESS NOTE DATE OF SERVICE: 08/13/2020 REASON FOR FOLLOWUP: Pneumonia. INTERVAL HISTORY: Patient is currently afebrile. Patient is breathing comfortably. The patient is hemodynamically stable currently on 2 L nasal cannula. No vomiting or intolerance or tube feeds. Diarrhea has been reported by nursing staff. PHYSICAL EXAMINATION: Blood pressure 120/73, Pulse of 85, temperature 98. He is 98% on 2 L nasal cannula. General description: The patient is a middle-aged male lying in bed in no distress. Respiratory system: Unlabored breathing, decreased breath sounds at bases. No wheeze. HEART: S1, S2. Regular rate and rhythm. Abdomen soft, no tenderness. LAB: Hemoglobin 9.3, white count 5.4, creatinine 0.6. DIAGNOSTIC IMPRESSION AND PLAN: 1. Patient with possible pneumonia, overall improvement on oral Levaquin to be continued for another 5 days. 2. Positive blood culture with coagulase negative Staph likely contaminant, no need for therapy for the same. MMODL / IJN: [id number] /
--- NOTE | 2020-08-15 22:10 | CDI ---
Documentation Clarification Form Date: 08/16/2020 From: Sohail Wilcox Phone: If you have a question about this query, please contact Deb Bergeron Director [employer] at [phone] between 8am and 5pm. Admit Date: 08/11/2020 Discharge Date: 08/13/2020 Patient Name: evelia Marvin Visit Number: [id number] ATTENTION: The Clinical Documentation Specialists (CDI) and [facility] Coding Staff appreciate your assistance in clarifying documentation. Please respond to the clarification below the line at the bottom and electronically sign. The CDI & [facility] Coding staff will review the response and follow-up if needed. Please note: Queries are made part of the Legal Health Record. If you have any questions, please contact the author of this message via ITS. Dear Rekha Sanchez MD., The patients principal diagnosis has not been clearly identified and requires clarification. The patient presented with respiratory distress and SOB. History/Risk Factors: Pleural effusion, COPD, GERD Radiology findings: Chronic changes without new suspicious acute pulmonary process. 08/12 Dr. Sebastien Diamond MD notes "COPD acute exacerbation with acute bilateral pneumonia, possibly aspiration pneumonia". 08/13 Dr. Brenden Hawkins MD notes "Tachypnea, dyspnea, with no clear evidence of pneumonia, patient is on empiric antibiotics in the form of Levaquin". 08/13 Dr. Gagan Pruitt MD notes "Patient with possible pneumonia, overall improvement on oral Levaquin to be continued for another 5 days". Positive blood culture with coagulase negative Staph likely contaminant, no needfor therapy for the same In your professional opinion, can you please clarify which diagnosis, after study, accounted for the patients presenting symptoms and was the reason chiefly responsible for the admission? Pneumonia Aspiration Pneumonia Other, please specify Unable to determine possible pneumonia MTDD
== END 2020-08-13 16:44 | DRG 193 ==
LOC: EC 02:07 → 6NMEDSUR 05:40 → OBSVTOIN 08-11 10:35
PROVIDERS: ADMIT Hospitalist; ATTEND Hospitalist
DX: J18.9 Pneumonia, unspecified organism (principal); G93.41 Metabolic encephalopathy; J96.01 Acute respiratory failure with hypoxia; J44.1 Chronic obstructive pulmonary disease with (acute) exacerbation; J90 Pleural effusion, not elsewhere classified; J98.11 Atelectasis; Z20.828 Contact with and (suspected) exposure to other viral communicable diseases; K21.9 Gastro-esophageal reflux disease without esophagitis; M19.90 Unspecified osteoarthritis, unspecified site; R13.10 Dysphagia, unspecified; I10 Essential (primary) hypertension; G40.901 Epilepsy, unspecified, not intractable, with status epilepticus; G35 Multiple sclerosis; F03.90 Unspecified dementia, unspecified severity, without behavioral disturbance, psychotic disturbance, mood disturbance, and anxiety; F32.9 Major depressive disorder, single episode, unspecified; N31.9 Neuromuscular dysfunction of bladder, unspecified; R53.81 Other malaise; D64.9 Anemia, unspecified; R41.89 Other symptoms and signs involving cognitive functions and awareness; R15.9 Full incontinence of feces; Z88.1 Allergy status to other antibiotic agents; Z87.01 Personal history of pneumonia (recurrent); Z87.440 Personal history of urinary (tract) infections; Z86.718 Personal history of other venous thrombosis and embolism; Z93.1 Gastrostomy status; Z86.19 Personal history of other infectious and parasitic diseases; Z82.49 Family history of ischemic heart disease and other diseases of the circulatory system; Z79.899 Other long term (current) drug therapy; Z79.82 Long term (current) use of aspirin; Z86.14 Personal history of Methicillin resistant Staphylococcus aureus infection; Z90.89 Acquired absence of other organs; Z98.890 Other specified postprocedural states; Z74.01 Bed confinement status
CPT/HCPCS: 36415; 71045; 71275; 80048; 80053; 81003; 83605; 83880; 84484; 85025; 85379; 85610; 85730; 87040; 87086; 87502; 87635; 93005; 94640; 96365; 96366; 96367; 99285

== ENCOUNTER 2020-08-20 13:05 | Emergency (ER) | payer MEDICARE, OTHER ==
[2020-08-20 13:10] VITALS: RESP 18
--- NOTE | 2020-08-20 13:21 | ED ---
General Adult HPI - General Chief complaint: Recheck/Abnormal Lab/Rx Stated complaint: PEG tube problem Time Seen by Provider: 08/20/20 13:12 Source: EMS, RN notes reviewed Mode of arrival: EMS Limitations: language barrier, altered mental status, physical limitation - History of Present Illness Initial comments: Patient is a pleasant 60-year-old male presenting to emergency department for PEG tube dislodgment. Patient was undergoing feedings when tube was accidentally dislodged. Patient is nonverbal and provides no information. Chart review reveals patient has had PEG tube present for at least a year or 2. No reported pain. No reported recent illness. - Related Data Home Medications Medication Instructions Recorded Confirmed Amantadine 50mg/5ml 100 mg PEG/G-TUBE Q12H 12/28/17 08/20/20 Cholecalciferol [Vitamin D3 (25 1,000 unit PEG/G-TUBE DAILY 12/28/17 08/20/20 Mcg = 1000 Iu)] Docusate Oral Soln [Colace Oral 200 mg PEG/G-TUBE Q12H PRN 12/28/17 08/20/20 Soln] guaiFENesin [guaiFENesin Oral 200 mg PEG/G-TUBE Q6H PRN 12/28/17 08/20/20 Solution] Acetaminophen Oral Susp [Tylenol] 320 mg PEG/G-TUBE Q6H PRN 01/26/19 08/20/20 Omeprazole Magnesium [PriLOSEC 20 mg PEG/G-TUBE DAILY 01/26/19 08/20/20 Oral Susp] Metoprolol Tartrate [Lopressor] 75 mg PEG/G-TUBE Q12H 07/29/19 08/20/20 Oxybutynin Chloride [Ditropan Oral 5 mg PEG/G-TUBE Q8H 09/08/19 08/20/20 Soln] polyethylene glycoL 3350 [Miralax] 17 gm PEG/G-TUBE DAILY PRN 09/08/19 08/20/20 Ipratropium-Albuterol Nebulize 3 ml INHALATION RT-QID 12/16/19 08/20/20 [Duoneb 0.5 mg-3 mg/3 ml Soln] Albuterol Sulfate [Proair Hfa] 2 puff INHALATION RT-Q4H PRN 04/14/20 08/20/20 Baclofen [Lioresal] 10 mg PEG/G-TUBE TID 07/16/20 08/20/20 Hydrocerin Cream 1 applic TOPICAL Q8H 07/16/20 08/20/20 Lacosamide [Vimpat] 150 mg PEG/G-TUBE Q12H 07/16/20 08/20/20 Ipratropium-Albuterol Nebulize 3 ml INHALATION RT-QID PRN 07/30/20 08/20/20 [Duoneb 0.5 mg-3 mg/3 ml Soln] carBAMazepine [TEGretol] 200 mg PEG/G-TUBE Q12H 07/30/20 08/20/20 levETIRAcetam [Keppra] 1,000 mg PEG/G-TUBE Q12H 07/30/20 08/20/20 Cranberry 475mg 475 mg PO DAILY 08/20/20 08/20/20 Levofloxacin [Levaquin] 500 mg PO DAILY 08/20/20 08/20/20 levETIRAcetam [Keppra Oral 2,000 mg PEG/G-TUBE Q12H 08/20/20 08/20/20 Solution] Previous Rx's Medication Instructions Recorded Aspirin 81 mg PEG/G-TUBE DAILY chew 04/15/20 Allergies Allergy/AdvReac Type Severity Reaction Status Date / Time meropenem [From Merrem] Allergy Rash/Hives Verified 08/20/20 14:08 Review of Systems ROS Statement: Those systems with pertinent positive or pertinent negative responses have been documented in the HPI. ROS Other: All systems not noted in ROS Statement are negative. Limitations: ROS unobtainable due to patients medical condition Past Medical History Past Medical History: Deep Vein Thrombosis (DVT), GERD/Reflux, Hypertension, Musculoskeletal Disorder, Neurologic Disorder, Pneumonia, Skin Disorder Additional Past Medical History / Comment(s): Pt recently hospitalized at [facility] for extensive stay with seizure/pneumonia/UTI with sepsis/respirtory failure/vented-Pt diagnosed with multiple sclerosis at the age of 20 yrs, cognitive impairment, sister states when he is feeling well he could speak a few words/nod head appropriately/give thumbs up/roll eyes but when ill is nonverbal, pt has dysphagia/NPO with peg tube, contractures, trigeminal neuralgia, dysarthria/anarthria/neurogenic bladder with IDC-UTIs/sepsis, multiple pneumonias, recent seizure-last one 07/03/20, incontinent of stool, pt has had decubitus ulcer coccyx-sister unsure of skin condition at this time, past anemia r/t heparin/epistaxiis which involved nasal packing/transfusions, DVT bilateral arms. History of Any Multi-Drug Resistant Organisms: ESBL, MRSA Date of last positivie culture/infection: 09/13/19-MRSA; 11/23/19 ESBL-E.coli MDRO Source:: Broch lavage-Mrsa; Urine -ESBL Past Surgical History: Tonsillectomy Additional Past Surgical History / Comment(s): Gastrostomy, peg tube, I&D coccyx decubitius, bilateral lasik eye surgery. Past Anesthesia/Blood Transfusion Reactions: No Reported Reaction Additional Past Anesthesia/Blood Transfusion Reaction / Comment(s): Pt has received blood in past without reaction. Past Psychological History: Depression Smoking Status: Never smoker - Past Family History Father Family Medical History: Myocardial Infarction ([place]) Additional Family Medical History / Comment(s): Father is at the age of 86 yrs while on heparin/bled, he had a mild [place] Mother Family Medical History: Hypertension, Myocardial Infarction ([place]) Additional Family Medical History / Comment(s): Mother of a [place] at the age of 73 yrs. General Exam Limitations: language barrier, altered mental status, physical limitation General appearance: alert, in no apparent distress Head exam: Present: atraumatic Eye exam: Present: normal appearance Neck exam: Present: normal inspection Respiratory exam: Present: normal lung sounds bilaterally Cardiovascular Exam: Present: regular rate, normal rhythm GI/Abdominal exam: Present: soft, other (PEG tube site clean and dry and intact without discharge). Absent: tenderness Neurological exam: Present: alert Psychiatric exam: Present: flat affect Skin exam: Present: normal color Course Vital Signs 08/20/20 13:07 Temperature 98 F Pulse Rate 75 Respiratory 18 Rate Blood Pressure 157/92 O2 Sat by Pulse 99 Oximetry Procedures - Feeding Tube Replacement Reason for Replacement: patient removed/pulled out Initial Tube Inserted: greater than 2 weeks Type of Tube: gastrostomy Use of Tube: medications and feeding Insertion Site Prior to Procedure: clean Tube Used for Reinsertion: Stein (Stein catheter placed without any difficulty), other (Unable to pass gastrostomy tube) Verification of Placement: auscultation, other (Nursing staff able to flush without difficulty) Patient Tolerated Procedure: well, no complications Medical Decision Making - Medical Decision Making Unable to easily placed gastrotomy tube. Case was discussed with Dr. Figueroa who recommends placing a 14-Kittitian Stein tube. This was placed without any difficulty and flushed. Patient will need to follow-up with Dr. Case. Disposition Clinical Impression: Feeding tube dysfunction Disposition: HOME SELF-CARE Condition: Stable Instructions (If sedation given, give patient instructions): How to Use and Care for Your PEG Tube (ED) Additional Instructions: Please follow-up with Dr. Case the beginning of the week. Stein catheter can be used for feedings or fluids. Return for problems with the catheter, pain or bleeding, worsening symptoms or other concerns. Is patient prescribed a controlled substance at d/c from ED?: No Referrals: Matteo Hernandez MD [Primary Care Provider] - 1-2 days Enrique Case MD [STAFF PHYSICIAN] - 1-2 days Time of Disposition: 14:41
[2020-08-20 15:33] VITALS: BP 148/72; PULSE 72; TEMP 98
== END 2020-08-20 15:35 | disposition home or self-care (01) ==
LOC: EC 13:05
DX: K94.23 Gastrostomy malfunction (principal); R41.82 Altered mental status, unspecified; F32.9 Major depressive disorder, single episode, unspecified; G35 Multiple sclerosis; K21.9 Gastro-esophageal reflux disease without esophagitis; I10 Essential (primary) hypertension; Z79.01 Long term (current) use of anticoagulants; Z79.899 Other long term (current) drug therapy; Z88.8 Allergy status to other drugs, medicaments and biological substances; Z86.14 Personal history of Methicillin resistant Staphylococcus aureus infection; Z86.718 Personal history of other venous thrombosis and embolism
CPT/HCPCS: 43762; 99283

== ENCOUNTER 2020-08-22 18:47 | Emergency (ER) | payer MEDICARE, OTHER ==
--- NOTE | 2020-08-22 19:40 | ED ---
Recheck HPI - General Chief Complaint: Recheck/Abnormal Lab/Rx Stated Complaint: PEG Tube Issue Time Seen by Provider: 08/22/20 18:51 Source: patient, EMS Mode of arrival: EMS Limitations: physical limitation - History of Present Illness Initial Comments: Patient is a 60-year-old male presenting to the emergency department via EMS from [facility] for a clogged PEG tube. He denies having any pain. EMS stated they were able to flush the PEG tube upon arrival. Patient was here 2 days ago after he actually pulled out his tube. The tube was not able to be replaced so they did place a 14-Trinidadian Stein tube. He was to follow-up with Dr. Case. There has been no fevers. Chart review reveals patient has had PEG tube for at least 2 years. No reported recent illness. - Related Data Home Medications Medication Instructions Recorded Confirmed Amantadine 50mg/5ml 100 mg PEG/G-TUBE Q12H 12/28/17 08/22/20 Cholecalciferol [Vitamin D3 (25 1,000 unit PEG/G-TUBE DAILY 12/28/17 08/22/20 Mcg = 1000 Iu)] Docusate Oral Soln [Colace Oral 200 mg PEG/G-TUBE Q12H PRN 12/28/17 08/22/20 Soln] guaiFENesin [guaiFENesin Oral 200 mg PEG/G-TUBE Q6H PRN 12/28/17 08/22/20 Solution] Acetaminophen Oral Susp [Tylenol] 320 mg PEG/G-TUBE Q6H PRN 01/26/19 08/22/20 Omeprazole Magnesium [PriLOSEC 20 mg PEG/G-TUBE DAILY 01/26/19 08/22/20 Oral Susp] Metoprolol Tartrate [Lopressor] 75 mg PEG/G-TUBE Q12H 07/29/19 08/22/20 Oxybutynin Chloride [Ditropan Oral 5 mg PEG/G-TUBE Q8H 09/08/19 08/22/20 Soln] polyethylene glycoL 3350 [Miralax] 17 gm PEG/G-TUBE DAILY PRN 09/08/19 08/22/20 Ipratropium-Albuterol Nebulize 3 ml INHALATION RT-QID 12/16/19 08/22/20 [Duoneb 0.5 mg-3 mg/3 ml Soln] Albuterol Sulfate [Proair Hfa] 2 puff INHALATION RT-Q4H PRN 04/14/20 08/22/20 Baclofen [Lioresal] 10 mg PEG/G-TUBE TID 07/16/20 08/22/20 Hydrocerin Cream 1 applic TOPICAL Q8H 07/16/20 08/22/20 Lacosamide [Vimpat] 150 mg PEG/G-TUBE Q12H 07/16/20 08/22/20 Ipratropium-Albuterol Nebulize 3 ml INHALATION RT-QID PRN 07/30/20 08/22/20 [Duoneb 0.5 mg-3 mg/3 ml Soln] carBAMazepine [TEGretol] 200 mg PEG/G-TUBE Q12H 07/30/20 08/22/20 Cranberry 475mg 475 mg PEG/G-TUBE DAILY 08/20/20 08/22/20 levETIRAcetam [Keppra Oral 2,000 mg PEG/G-TUBE Q12H 08/20/20 08/22/20 Solution] Previous Rx's Medication Instructions Recorded Aspirin 81 mg PEG/G-TUBE DAILY chew 04/15/20 Allergies Allergy/AdvReac Type Severity Reaction Status Date / Time meropenem [From Merrem] Allergy Rash/Hives Verified 08/22/20 19:25 Review of Systems ROS Statement: Those systems with pertinent positive or pertinent negative responses have been documented in the HPI. ROS Other: All systems not noted in ROS Statement are negative. Past Medical History Past Medical History: Deep Vein Thrombosis (DVT), GERD/Reflux, Hypertension, Musculoskeletal Disorder, Neurologic Disorder, Pneumonia, Skin Disorder Additional Past Medical History / Comment(s): Pt recently hospitalized at [facility] for extensive stay with seizure/pneumonia/UTI with sepsis/respirtory failure/vented-Pt diagnosed with multiple sclerosis at the age of 20 yrs, cognitive impairment, sister states when he is feeling well he could speak a few words/nod head appropriately/give thumbs up/roll eyes but when ill is nonverbal, pt has dysphagia/NPO with peg tube, contractures, trigeminal neuralgia, dysarthria/anarthria/neurogenic bladder with IDC-UTIs/sepsis, multiple pneumonias, recent seizure-last one 07/03/20, incontinent of stool, pt has had decubitus ulcer coccyx-sister unsure of skin condition at this time, past anemia r/t heparin/epistaxiis which involved nasal packing/transfusions, DVT bilateral arms. History of Any Multi-Drug Resistant Organisms: ESBL, MRSA Date of last positivie culture/infection: 09/13/19-MRSA; 11/23/19 ESBL-E.coli MDRO Source:: Broch lavage-Mrsa; Urine -ESBL Past Surgical History: Tonsillectomy Additional Past Surgical History / Comment(s): Gastrostomy, peg tube, I&D coccyx decubitius, bilateral lasik eye surgery. Past Anesthesia/Blood Transfusion Reactions: No Reported Reaction Additional Past Anesthesia/Blood Transfusion Reaction / Comment(s): Pt has received blood in past without reaction. Past Psychological History: Depression Smoking Status: Never smoker - Past Family History Father Family Medical History: Myocardial Infarction ([place]) Additional Family Medical History / Comment(s): Father is at the age of 86 yrs while on heparin/bled, he had a mild [place] Mother Family Medical History: Hypertension, Myocardial Infarction ([place]) Additional Family Medical History / Comment(s): Mother of a [place] at the age of 73 yrs. General Exam - General Exam Comments Initial Comments: GENERAL: Patient is well-developed and well-nourished. Patient is nontoxic and in no acute distress. HEAD: Atraumatic, normocephalic. EYES: Pupils equal round and reactive to light, extraocular movements intact, sclera anicteric, conjunctiva are normal. Eyelids were unremarkable. ENT: TMs normal, nares patent, oropharynx clear without exudates. Moist mucous membranes. NECK: Normal range of motion, supple without lymphadenopathy or JVD. LUNGS: Unlabored respirations. Breath sounds clear to auscultation bilaterally and equal. No wheezes rales or rhonchi. HEART: Regular rate and rhythm without murmurs, rubs or gallops. ABDOMEN: Soft, nontender, normoactive bowel sounds. No guarding, no rebound. No masses appreciated. PEG tub present. : Deferred MUSCULOSKELETAL: Normal extremities with adequate strength and normal range of motion, no pitting or edema. No clubbing or cyanosis. NEUROLOGICAL: Patient is nonverbal, he is at baseline. PSYCH: Normal mood, normal affect. SKIN: Warm, Dry, normal turgor, no rashes or lesions noted. Limitations: physical limitation Course Vital Signs 08/22/20 18:52 Temperature 97.9 F Pulse Rate 83 Respiratory 19 Rate Blood Pressure 139/78 O2 Sat by Pulse 98 Oximetry Procedures - Feeding Tube Replacement Reason for Replacement: not functioning/damaged Initial Tube Inserted: greater than 2 weeks Type of Tube: gastrostomy Use of Tube: medications and feeding Insertion Site Prior to Procedure: clean Tube Used for Reinsertion: Stein (14F) Verification of Placement: auscultation, other (Able to flush without difficulty) Patient Tolerated Procedure: well Medical Decision Making - Medical Decision Making Patient is a 60-year-old male here secondary to a clogged PEG tube. Patient was here 2 days ago and his original size 17-Trinidadian PEG tube was not able to be replaced, so a 14-Trinidadian Stein catheter for the time being and he was to follow- up with Dr. Case. I was able to replace the clogged 14-Trinidadian Stein catheter, it flushes well. She tolerated procedure well. Patient is stable to be discharged back to [facility]. He still needs to follow up with surgeon. Case discussed with Dr. Zaldivar. Disposition Clinical Impression: Feeding tube blocked Disposition: HOME SELF-CARE Condition: Stable Instructions (If sedation given, give patient instructions): How to Use and Care for Your PEG Tube (ED) Additional Instructions: Please return to the Emergency Department if symptoms worsen or any other concerns. Make sure to properly dissolve pills to avoid blocked tube. Need to follow-up with Dr. Case. Is patient prescribed a controlled substance at d/c from ED?: No Referrals: Matteo Hernandez MD [Primary Care Provider] - 1-2 days
[2020-08-22 22:25] VITALS: BP 142/80; PULSE 77; RESP 18; TEMP 98.1
== END 2020-08-22 22:43 | disposition home or self-care (01) ==
LOC: EC 18:47
DX: K94.23 Gastrostomy malfunction (principal); I10 Essential (primary) hypertension; K21.9 Gastro-esophageal reflux disease without esophagitis; G50.0 Trigeminal neuralgia; Z79.899 Other long term (current) drug therapy; Z88.1 Allergy status to other antibiotic agents; Z86.14 Personal history of Methicillin resistant Staphylococcus aureus infection; Z86.718 Personal history of other venous thrombosis and embolism
CPT/HCPCS: 43762; 99283

== ENCOUNTER 2020-09-09 10:01 | Emergency (ER) | payer MEDICARE, OTHER ==
[2020-09-09 10:08] VITALS: BP 132/80; PULSE 75; RESP 18; TEMP 98.8
--- NOTE | 2020-09-09 10:34 | ED ---
General Adult HPI - General Chief complaint: Abdominal Pain Stated complaint: Peg Tube issues Time Seen by Provider: 09/09/20 10:09 Source: patient, EMS, RN notes reviewed Mode of arrival: EMS Limitations: no limitations - History of Present Illness Initial comments: 60-year-old male with a past medical history of DVT, GERD, hypertension, pneumonia, presents to the emergency department for a chief complaint of "PEG tube issues." Nurse was not given report. Patient is nonverbal. Nurse did call the [facility] states patient was sent to the hospital for surgery with Dr. Case at 10:30. It is unclear why this patient was seen through the emergency room. He will be discharged from the emergency room to be taken to the surgical unit. - Related Data Home Medications Medication Instructions Recorded Confirmed Amantadine 50mg/5ml 100 mg PEG/G-TUBE Q12H 12/28/17 09/07/20 Cholecalciferol [Vitamin D3 (25 1,000 unit PEG/G-TUBE DAILY 12/28/17 09/07/20 Mcg = 1000 Iu)] Docusate Oral Soln [Colace Oral 200 mg PEG/G-TUBE Q12H PRN 12/28/17 09/07/20 Soln] guaiFENesin [guaiFENesin Oral 200 mg PEG/G-TUBE Q6H PRN 12/28/17 09/07/20 Solution] Acetaminophen Oral Susp [Tylenol] 320 mg PEG/G-TUBE Q6H PRN 01/26/19 09/07/20 Omeprazole Magnesium [PriLOSEC 20 mg PEG/G-TUBE DAILY 01/26/19 09/07/20 Oral Susp] Metoprolol Tartrate [Lopressor] 75 mg PEG/G-TUBE Q12H 07/29/19 09/07/20 Oxybutynin Chloride [Ditropan Oral 5 mg PEG/G-TUBE Q8H 09/08/19 09/07/20 Soln] polyethylene glycoL 3350 [Miralax] 17 gm PEG/G-TUBE DAILY PRN 09/08/19 09/07/20 Ipratropium-Albuterol Nebulize 3 ml INHALATION RT-QID 12/16/19 09/07/20 [Duoneb 0.5 mg-3 mg/3 ml Soln] Albuterol Sulfate [Proair Hfa] 2 puff INHALATION RT-Q4H PRN 04/14/20 09/07/20 Baclofen [Lioresal] 10 mg PEG/G-TUBE TID 07/16/20 09/07/20 Hydrocerin Cream 1 applic TOPICAL Q8H 07/16/20 09/07/20 Lacosamide [Vimpat] 150 mg PEG/G-TUBE Q12H 07/16/20 09/07/20 carBAMazepine [TEGretol] 200 mg PEG/G-TUBE Q12H 07/30/20 09/07/20 Cranberry 475mg 475 mg PEG/G-TUBE DAILY 08/20/20 09/07/20 levETIRAcetam [Keppra Oral 2,000 mg PEG/G-TUBE Q12H 08/20/20 09/07/20 Solution] Scopolamine [Scopolamine 1 MG/72 1 patch TRANSDERM Q72H 09/07/20 09/07/20 HR patch] Previous Rx's Medication Instructions Recorded Aspirin 81 mg PEG/G-TUBE DAILY chew 04/15/20 Allergies Allergy/AdvReac Type Severity Reaction Status Date / Time meropenem [From Merrem] Allergy Rash/Hives Verified 09/07/20 11:15 Review of Systems ROS Statement: Those systems with pertinent positive or pertinent negative responses have been documented in the HPI. ROS Other: All systems not noted in ROS Statement are negative. Past Medical History Past Medical History: Deep Vein Thrombosis (DVT), GERD/Reflux, Hypertension, Musculoskeletal Disorder, Neurologic Disorder, Pneumonia, Skin Disorder Additional Past Medical History / Comment(s): Pt recently hospitalized at [facility] for extensive stay with seizure/pneumonia/UTI with sepsis/respirtory failure/vented-Pt diagnosed with multiple sclerosis at the age of 20 yrs, cognitive impairment, sister states when he is feeling well he could speak a few words/nod head appropriately/give thumbs up/roll eyes but when ill is nonverbal, pt has dysphagia/NPO with peg tube, contractures, trigeminal neuralgia, dysarthria/anarthria/neurogenic bladder with IDC-UTIs/sepsis, multiple pneumonias, recent seizure-last one 07/03/20, incontinent of stool, pt has had decubitus ulcer coccyx-sister unsure of skin condition at this time, past anemia r/t heparin/epistaxiis which involved nasal packing/transfusions, DVT bilateral arms. Currently residing at [facility]. Wears oxygen at 2L per n/c. History of Any Multi-Drug Resistant Organisms: ESBL, MRSA Date of last positivie culture/infection: 09/13/19-MRSA; 11/23/19 ESBL-E.coli MDRO Source:: Broch lavage-Mrsa; Urine -ESBL Past Surgical History: Tonsillectomy Additional Past Surgical History / Comment(s): Gastrostomy, peg tube, I&D coccyx decubitius, bilateral lasik eye surgery. Past Anesthesia/Blood Transfusion Reactions: No Reported Reaction Additional Past Anesthesia/Blood Transfusion Reaction / Comment(s): Pt has received blood in past without reaction. Past Psychological History: Depression Smoking Status: Never smoker - Past Family History Father Family Medical History: Myocardial Infarction ([place]) Mother Family Medical History: Hypertension, Myocardial Infarction ([place]) Additional Family Medical History / Comment(s): Mother of a [place] at the age of 73 yrs. General Exam Limitations: no limitations General appearance: alert, in no apparent distress Head exam: Present: atraumatic, normocephalic, normal inspection Eye exam: Present: normal appearance, PERRL, EOMI. Absent: scleral icterus, conjunctival injection, periorbital swelling ENT exam: Present: normal exam, mucous membranes moist Neck exam: Present: normal inspection, full ROM. Absent: tenderness, meningismus, lymphadenopathy Respiratory exam: Present: normal lung sounds bilaterally. Absent: respiratory distress, wheezes, rales, rhonchi, stridor Cardiovascular Exam: Present: regular rate, normal rhythm, normal heart sounds. Absent: systolic murmur, diastolic murmur, rubs, gallop, clicks GI/Abdominal exam: Present: soft, normal bowel sounds, other (PEG tube in place. PEG tube is flushing.). Absent: distended, tenderness, guarding, rebound, rigid Neurological exam: Present: alert Course Vital Signs 09/09/20 10:04 Temperature 98.8 F Pulse Rate 75 Respiratory 18 Rate Blood Pressure 132/80 O2 Sat by Pulse 100 Oximetry Medical Decision Making - Medical Decision Making Patient was evaluated, vitals are stable. PEG tube is flushing well. I did order a pyelogram however at this time nurse called nursing overstated patient was actually sent to the hospital for an outpatient procedure and should not be seen through the emergency room. At this time patient will be discharged and taken to the surgical suite. Disposition Clinical Impression: PEG tube malfunction Disposition: HOME SELF-CARE Condition: Good Additional Instructions: Patient was taken directly to the surgical suite. Is patient prescribed a controlled substance at d/c from ED?: No Referrals: Matteo Hernandez MD [Primary Care Provider] - 1-2 days Time of Disposition: 10:33
== END 2020-09-09 10:45 | disposition home or self-care (01) ==
LOC: EC 10:01
DX: K94.23 Gastrostomy malfunction (principal); K21.9 Gastro-esophageal reflux disease without esophagitis; I10 Essential (primary) hypertension; G35 Multiple sclerosis; Z79.899 Other long term (current) drug therapy; Z88.1 Allergy status to other antibiotic agents; Z86.718 Personal history of other venous thrombosis and embolism
CPT/HCPCS: 99284

== ENCOUNTER → 2020-09-09 | Day surgery (SDC) | payer MEDICARE, OTHER ==
[2020-09-07 13:28] VITALS: BMI 25.0
[~2020-09-09] MED LIST: LACTATED RINGERS 1,000 ML IV SCH; LIDOCAINE 1% (10MG/ML) FOR IV START INTRADERMA PRN; PROPOFOL 10 MG/ML 20 ML VIAL IV ONE
[2020-09-09 10:47] VITALS: RESP 16; TEMP 97.5
--- NOTE | 2020-09-09 12:59 | P.OP ---
Date of Procedure: 09/09/20 Preoperative Diagnosis: Malnutrition Postoperative Diagnosis: Malnutrition Procedure(s) Performed: EGD with feeding tube placement Anesthesia: MAC Surgeon: Enrique Case Pathology: none sent Condition: stable Disposition: PACU Description of Procedure: The patient's placed on the endoscopy table in the lateral position. He received IV sedation. The gastroscope placed oropharynx passed in the esophagus and stomach. The pylorus. First portion duodenum appeared normal. Scope was then brought back and stomach. Patient had a Stein catheter into the stomach. This was removed. Under direct vision 80 MAC replaced into was placed and stomach. The balloon was insufflated with 5 mL of saline. Patient top she will well and sent to recovery room stable condition
--- NOTE | 2020-09-09 13:01 | P.GSHP ---
History of Present Illness H&P Date: 09/09/20 Chief Complaint: Malnutrition A 60-year-old male with previous PEG tube placement. Patient has had malfunction PEG tube. He presents today for EGD and PEG tube placement Past Medical History Past Medical History: Deep Vein Thrombosis (DVT), GERD/Reflux, Hypertension, Musculoskeletal Disorder, Neurologic Disorder, Pneumonia, Skin Disorder Additional Past Medical History / Comment(s): Pt recently hospitalized at [facility] for extensive stay with seizure/pneumonia/UTI with sepsis/respirtory failure/vented-Pt diagnosed with multiple sclerosis at the age of 20 yrs, cognitive impairment, sister states when he is feeling well he could speak a few words/nod head appropriately/give thumbs up/roll eyes but when ill is nonverbal, pt has dysphagia/NPO with peg tube, contractures, trigeminal neuralgia, dysarthria/anarthria/neurogenic bladder with IDC-UTIs/sepsis, multiple pneumonias, recent seizure-last one 07/03/20, incontinent of stool, pt has had decubitus ulcer coccyx-sister unsure of skin condition at this time, past anemia r/t heparin/epistaxiis which involved nasal packing/transfusions, DVT bilateral arms. Currently residing at [facility]. Wears oxygen at 2L per n/c. History of Any Multi-Drug Resistant Organisms: ESBL, MRSA Date of last positivie culture/infection: 09/13/19-MRSA; 11/23/19 ESBL-E.coli MDRO Source:: Broch lavage-Mrsa; Urine -ESBL Past Surgical History: Tonsillectomy Additional Past Surgical History / Comment(s): Gastrostomy, peg tube, I&D coccyx decubitius, bilateral lasik eye surgery. Past Anesthesia/Blood Transfusion Reactions: No Reported Reaction Additional Past Anesthesia/Blood Transfusion Reaction / Comment(s): Pt has received blood in past without reaction. Smoking Status: Never smoker - Past Family History Father Family Medical History: Myocardial Infarction (SC) Additional Family Medical History / Comment(s): Father is at the age of 86 yrs while on heparin/bled, he had a mild SC Mother Family Medical History: Hypertension, Myocardial Infarction (SC) Additional Family Medical History / Comment(s): Mother of a SC at the age of 73 yrs. Medications and Allergies Home Medications Medication Instructions Recorded Confirmed Type Amantadine 50mg/5ml 100 mg PEG/G-TUBE Q12H 12/28/17 09/09/20 History Cholecalciferol [Vitamin D3 (25 1,000 unit PEG/G-TUBE DAILY 12/28/17 09/09/20 History Mcg = 1000 Iu)] Docusate Oral Soln [Colace Oral 200 mg PEG/G-TUBE Q12H PRN 12/28/17 09/09/20 History Soln] guaiFENesin [guaiFENesin Oral 200 mg PEG/G-TUBE Q6H PRN 12/28/17 09/09/20 History Solution] Acetaminophen Oral Susp [Tylenol] 320 mg PEG/G-TUBE Q6H PRN 01/26/19 09/09/20 History Omeprazole Magnesium [PriLOSEC 20 mg PEG/G-TUBE DAILY 01/26/19 09/09/20 History Oral Susp] Metoprolol Tartrate [Lopressor] 75 mg PEG/G-TUBE Q12H 07/29/19 09/09/20 History Oxybutynin Chloride [Ditropan Oral 5 mg PEG/G-TUBE Q8H 09/08/19 09/09/20 History Soln] polyethylene glycoL 3350 [Miralax] 17 gm PEG/G-TUBE DAILY PRN 09/08/19 09/09/20 History Ipratropium-Albuterol Nebulize 3 ml INHALATION RT-QID 12/16/19 09/09/20 History [Duoneb 0.5 mg-3 mg/3 ml Soln] Albuterol Sulfate [Proair Hfa] 2 puff INHALATION RT-Q4H PRN 04/14/20 09/09/20 History Aspirin 81 mg PEG/G-TUBE DAILY chew 04/15/20 09/09/20 Rx Baclofen [Lioresal] 10 mg PEG/G-TUBE TID 07/16/20 09/09/20 History Hydrocerin Cream 1 applic TOPICAL Q8H 07/16/20 09/09/20 History Lacosamide [Vimpat] 150 mg PEG/G-TUBE Q12H 07/16/20 09/09/20 History carBAMazepine [TEGretol] 200 mg PEG/G-TUBE Q12H 07/30/20 09/09/20 History Cranberry 475mg 475 mg PEG/G-TUBE DAILY 08/20/20 09/09/20 History levETIRAcetam [Keppra Oral 2,000 mg PEG/G-TUBE Q12H 08/20/20 09/09/20 History Solution] Scopolamine [Scopolamine 1 MG/72 1 patch TRANSDERM Q72H 09/07/20 09/09/20 History HR patch] Allergies Allergy/AdvReac Type Severity Reaction Status Date / Time meropenem [From Merrem] Allergy Rash/Hives Verified 09/07/20 11:15 Surgical - Exam Vital Signs Temp Pulse Resp BP Pulse Ox 97.5 F L 72 16 152/111 98 09/09/20 10:44 09/09/20 10:44 09/09/20 10:44 09/09/20 10:44 09/09/20 10:44 - General well developed, well nourished, no distress - Eyes PERRL - ENT normal pinna - Neck no masses - Respiratory normal expansion - Abdomen Abdomen: soft, non tender Assessment and Plan Assessment: Malnutrition. We'll perform EGD with PEG tube replacement
[2020-09-09 13:15] VITALS: BP 142/88; PULSE 80
== END | disposition home or self-care (01) ==
LOC: ORWHC2ENDO 11:55
PROVIDERS: ATTEND Surgery
DX: K94.23 Gastrostomy malfunction (principal); E46 Unspecified protein-calorie malnutrition
CPT/HCPCS: 43246; J2704; B4087

== ENCOUNTER → 2020-09-29 | Outpatient (CLI) | payer MEDICARE, OTHER ==
[2020-09-29 13:48] LABS: African American GFR (CKD) >90 (>60 ml/min/1.73 sqM); Blood Urea Nitrogen 22 mg/dL (9-20); Non-African American GFR(CKD) >90 (>60 ml/min/1.73 sqM)
--- NOTE | 2020-09-29 16:28 | CT ---
EXAMINATION TYPE: CT chest wo con DATE OF EXAM: 09/29/2020 COMPARISON: 07/29/2020 HISTORY: RLL Mass CT DLP: 416.90 mGycm, Automated exposure control for dose reduction was used. CONTRAST: None TECHNIQUE: Axial images were obtained at 5 mm thick sections. Reconstructed images are reviewed on [employer] computer in the coronal plane. FINDINGS: Portion of the thyroid visualized is normal. There is a rounded density in the right middle lobe measuring 2.8 x 2.3 cm. This area may have been p resent previously but is smaller currently. Previous right lower lobe consolidation has resolved. No enlarged mediastinal or hilar adenopathy is evident. The ascending aorta diameter at the level o f the main pulmonary artery is 3.8 cm. The main pulmonary artery diameter at the bifurcation is 2.5 cm. Coronary artery calcification is present. Limited CT sections are obtained through the upper abdomen. There is a PEG tube present within the st omach. IMPRESSIONS: 1. Diminished size rounded density right middle lobe. 2. Resolution previous right lower lobe consolidation.
== END | disposition home or self-care (01) ==
LOC: RADCTMAIN 12:47
PROVIDERS: ATTEND Internal Medicine
DX: R91.8 Other nonspecific abnormal finding of lung field (principal)
CPT/HCPCS: 71250; 82565; 84520

== ENCOUNTER 2020-11-26 21:42 | Inpatient (IN) | payer MEDICARE, OTHER ==
[2020-11-26] MEDS ORDERED: SODIUM CHLORIDE 0.9% 1,000 ML IV STA (22:06)
[2020-11-26] MEDS ORDERED: SODIUM CHLORIDE 0.9% 500 ML 500 ML IV STA (22:06)
--- NOTE | 2020-11-26 22:12 | ED ---
General Adult HPI - General Source: EMS Mode of arrival: EMS Limitations: language barrier, altered mental status, physical limitation <Brenden Day - Last Filed: 11/26/20 22:13> <Dipak Ulrich - Last Filed: 11/27/20 05:53> - General Chief complaint: Recheck/Abnormal Lab/Rx Stated complaint: Abd Pain Time Seen by Provider: 11/26/20 21:53 - History of Present Illness Initial comments: This 60-year-old male presents via EMS from [facility] with his sister who is his power of litigation attorney. All history is obtained per sister is the patient is nonverbal. She relates that it seems as though his abdomen may be slightly distended. She also states that he is had a gurgling cough. He also has had some slight urine draining around his Stein catheter. She relates that he is only been back to the [facility] for approximately one week. He was hospitalized for 3 weeks prior at [facility] for sepsis, urinary tract infection, and pneumonia. Sister relates that he was on meropenem for several weeks as he had resistant infections. He is no longer on antibiotics. The sister relates that his temperature is elevated as compared to normal. He apparently has a normal temperature around 97 and today he was 98. She denies any actual known fever. He does have a long history of multiple sclerosis and multiple other medical problems. He has chronic decubitus ulcers in the sacral and heel regions. He has significant contractures. He apparently can sometimes communicate through I her facial gestures but the sister thinks that his mental status is decreased because he does not do this as much recently. No other identifiable complaints or modifying factors but history is limited due to patient's chronic debilitated state. (Brenden Day) - Related Data Home Medications Medication Instructions Recorded Confirmed Amantadine 50mg/5ml 100 mg PEG/G-TUBE Q12H 12/28/17 09/09/20 Cholecalciferol [Vitamin D3 (25 1,000 unit PEG/G-TUBE DAILY 12/28/17 09/09/20 Mcg = 1000 Iu)] Docusate Oral Soln [Colace Oral 200 mg PEG/G-TUBE Q12H PRN 12/28/17 09/09/20 Soln] guaiFENesin [guaiFENesin Oral 200 mg PEG/G-TUBE Q6H PRN 12/28/17 09/09/20 Solution] Acetaminophen Oral Susp [Tylenol] 320 mg PEG/G-TUBE Q6H PRN 01/26/19 09/09/20 Omeprazole Magnesium [PriLOSEC 20 mg PEG/G-TUBE DAILY 01/26/19 09/09/20 Oral Susp] Metoprolol Tartrate [Lopressor] 75 mg PEG/G-TUBE Q12H 07/29/19 09/09/20 Oxybutynin Chloride [Ditropan Oral 5 mg PEG/G-TUBE Q8H 09/08/19 09/09/20 Soln] polyethylene glycoL 3350 [Miralax] 17 gm PEG/G-TUBE DAILY PRN 09/08/19 09/09/20 Ipratropium-Albuterol Nebulize 3 ml INHALATION RT-QID 12/16/19 09/09/20 [Duoneb 0.5 mg-3 mg/3 ml Soln] Albuterol Sulfate [Proair Hfa] 2 puff INHALATION RT-Q4H PRN 04/14/20 09/09/20 Baclofen [Lioresal] 10 mg PEG/G-TUBE TID 07/16/20 09/09/20 Hydrocerin Cream 1 applic TOPICAL Q8H 07/16/20 09/09/20 Lacosamide [Vimpat] 150 mg PEG/G-TUBE Q12H 07/16/20 09/09/20 carBAMazepine [TEGretol] 200 mg PEG/G-TUBE Q12H 07/30/20 09/09/20 Cranberry 475mg 475 mg PEG/G-TUBE DAILY 08/20/20 09/09/20 levETIRAcetam [Keppra Oral 2,000 mg PEG/G-TUBE Q12H 08/20/20 09/09/20 Solution] Scopolamine [Scopolamine 1 MG/72 1 patch TRANSDERM Q72H 09/07/20 09/09/20 HR patch] Previous Rx's Medication Instructions Recorded Aspirin 81 mg PEG/G-TUBE DAILY chew 04/15/20 Allergies Allergy/AdvReac Type Severity Reaction Status Date / Time meropenem [From Merrem] Allergy Rash/Hives Verified 11/26/20 22:03 Review of Systems ROS Other: All systems not noted in ROS Statement are negative. <Kitto,Jimi - Last Filed: 11/26/20 22:13> ROS Other: All systems not noted in ROS Statement are negative. <Dipak Ulrich - Last Filed: 11/27/20 05:53> ROS Statement: Those systems with pertinent positive or pertinent negative responses have been documented in the HPI. Past Medical History Past Medical History: Deep Vein Thrombosis (DVT), GERD/Reflux, Hypertension, Musculoskeletal Disorder, Neurologic Disorder, Pneumonia, Skin Disorder Additional Past Medical History / Comment(s): Pt recently hospitalized at [facility] for extensive stay with seizure/pneumonia/UTI with sepsis/respirtory failure/vented-Pt diagnosed with multiple sclerosis at the age of 20 yrs, cognitive impairment, sister states when he is feeling well he could speak a few words/nod head appropriately/give thumbs up/roll eyes but when ill is nonverbal, pt has dysphagia/NPO with peg tube, contractures, trigeminal neuralgia, dysarthria/anarthria/neurogenic bladder with IDC-UTIs/sepsis, multiple pneumonias, recent seizure-last one 07/03/20, incontinent of stool, pt has had decubitus ulcer coccyx-sister unsure of skin condition at this time, past anemia r/t heparin/epistaxiis which involved nasal packing/transfusions, DVT bilateral arms. Currently residing at [facility]. Wears oxygen at 2L per n/c. History of Any Multi-Drug Resistant Organisms: ESBL, MRSA Date of last positivie culture/infection: 09/13/19-MRSA; 11/23/19 ESBL-E.coli MDRO Source:: Broch lavage-Mrsa; Urine -ESBL Past Surgical History: Tonsillectomy Additional Past Surgical History / Comment(s): Gastrostomy, peg tube, I&D coccyx decubitius, bilateral lasik eye surgery. Past Anesthesia/Blood Transfusion Reactions: No Reported Reaction Additional Past Anesthesia/Blood Transfusion Reaction / Comment(s): Pt has received blood in past without reaction. Past Psychological History: Depression Smoking Status: Never smoker - Past Family History Father Family Medical History: Myocardial Infarction (NM) Mother Family Medical History: Hypertension, Myocardial Infarction (NM) Additional Family Medical History / Comment(s): Mother of a NM at the age of 73 yrs. <Brenden Day - Last Filed: 11/26/20 22:13> General Exam Limitations: language barrier, altered mental status, physical limitation <Brenden Day - Last Filed: 11/26/20 22:13> - General Exam Comments Initial Comments: GENERAL: The patient is well nourished and well hydrated. VITAL SIGNS: Heart rate, blood pressure, respiratory rate reviewed as recorded in nurse's notes. EYES: Pupils are round and reactive. Extraocular movements are intact. No conjunctival / lid redness or swelling. ENT: No external evidence of injury, swelling, or ecchymosis. Airway is patent. Throat is clear. NECK: Nontender. No swelling or evidence of injury. No subcutaneous emphysema. Trachea is midline. No thyroid mass. HEART: Regular rate and rhythm. Good peripheral pulses. LUNGS/CHEST: Breath sounds clear and equal bilaterally. No rales, rhonchi, or wheezes. No ecchymosis, subcutaneous emphysema, or tenderness. Occasional gurgly cough noted. He appears slightly tachypneic. ABDOMEN: Abdomen soft without tenderness. No palpable masses or organomegaly. No peritoneal signs. No abdominal wall swelling or ecchymosis. No distention i dentified. GENITOURINARY: There is slight urine leakage around the Stein catheter. EXTREMITIES: Extremities are contracted. NEUROLOGIC: Patient is nonverbal and does not follow any commands. SKIN: Purported decubitus ulcers to the sacral region and bilateral heels, currently extensively bandaged PSYCHIATRIC: Patient is nonverbal. (Brenden Day) Course <Dipak Ulrich - Last Filed: 11/27/20 05:53> Vital Signs 11/26/20 11/27/20 21:51 00:35 Temperature 98.2 F Pulse Rate 96 80 Respiratory 18 18 Rate Blood Pressure 126/86 156/93 O2 Sat by Pulse 100 99 Oximetry - Reevaluation(s) Reevaluation #1: 11/27/20 00:53 medical record is reviewed patient informed of results and plan, liz answered (Dipak Ulrich) Medical Decision Making <Brenden Day - Last Filed: 11/26/20 22:13> - Lab Data Result diagrams: 11/26/20 22:50 11/26/20 22:50 - Radiology Data Radiology results: report reviewed (Chest and pelvis x-rays negative for acute disease), image reviewed <Dipak Ulrich - Last Filed: 11/27/20 05:53> - Medical Decision Making The patient was seen and examined. Old records are reviewed. [facility] records are also reviewed. (Brenden Day) 60 male to the ED for weakness. Patient was in for weakness, evaluation of sepsis or infection. Patient does have urinary tract infection, will admit for IV antibiotics (Dipak Ulrich) - Lab Data Lab Results 11/26/20 11/26/20 11/26/20 Range/Units 22:50 22:50 22:50 WBC 7.4 (3.8-10.6) k/uL RBC 4.55 (4.30-5.90) m/uL Hgb 12.0 L (13.0-17.5) gm/dL Hct 37.3 L (39.0-53.0) % MCV 81.9 (80.0-100.0) fL MCH 26.4 (25.0-35.0) pg MCHC 32.3 (31.0-37.0) g/dL RDW 21.4 H (11.5-15.5) % Plt Count 403 (150-450) k/uL MPV 8.7 Neutrophils % 73 % Lymphocytes % 13 % Monocytes % 7 % Eosinophils % 6 % Basophils % 1 % Neutrophils # 5.4 (1.3-7.7) k/uL Lymphocytes # 0.9 L (1.0-4.8) k/uL Monocytes # 0.5 (0-1.0) k/uL Eosinophils # 0.5 (0-0.7) k/uL Basophils # 0.1 (0-0.2) k/uL Hypochromasia Slight Anisocytosis Moderate Microcytosis Slight PT 11.4 (9.0-12.0) sec INR 1.1 (<1.2) APTT 21.6 L (22.0-30.0) sec Sodium 138 (137-145) mmol/L Potassium 4.7 (3.5-5.1) mmol/L Chloride 105 (98-107) mmol/L Carbon Dioxide 22 (22-30) mmol/L Anion Gap 11 mmol/L BUN 24 H (9-20) mg/dL Creatinine 0.64 L (0.66-1.25) mg/dL Est GFR (CKD-EPI)AfAm >90 (>60 ml/min/1.73 sqM) Est GFR (CKD-EPI)NonAf >90 (>60 ml/min/1.73 sqM) Glucose 85 (74-99) mg/dL Plasma Lactic Acid [place] (0.7-2.0) mmol/L Calcium 9.3 (8.4-10.2) mg/dL Total Bilirubin 0.5 (0.2-1.3) mg/dL AST 32 (17-59) U/L ALT 16 (4-49) U/L Alkaline Phosphatase 92 (38-126) U/L Total Protein 8.0 (6.3-8.2) g/dL Albumin 3.9 (3.5-5.0) g/dL Lipase 594 H (23-300) U/L Urine Color Urine Appearance (Clear) Urine pH (5.0-8.0) Ur Specific [place] (1.001-1.035) Urine Protein (Negative) Urine Glucose (UA) (Negative) Urine Ketones (Negative) Urine Blood (Negative) Urine Nitrite (Negative) Urine Bilirubin (Negative) Urine Urobilinogen (<2.0) mg/dL Ur Leukocyte Esterase (Negative) Urine WBC (0-5) /hpf Triple Phos Crystals (None) /hpf Urine Bacteria (None) /hpf Urine Mucus (None) /hpf Coronavirus (PCR) (Not Detectd) 11/26/20 11/26/20 11/26/20 Range/Units 22:50 22:50 23:22 WBC (3.8-10.6) k/uL RBC (4.30-5.90) m/uL Hgb (13.0-17.5) gm/dL Hct (39.0-53.0) % MCV (80.0-100.0) fL MCH (25.0-35.0) pg MCHC (31.0-37.0) g/dL RDW (11.5-15.5) % Plt Count (150-450) k/uL MPV Neutrophils % % Lymphocytes % % Monocytes % % Eosinophils % % Basophils % % Neutrophils # (1.3-7.7) k/uL Lymphocytes # (1.0-4.8) k/uL Monocytes # (0-1.0) k/uL Eosinophils # (0-0.7) k/uL Basophils # (0-0.2) k/uL Hypochromasia Anisocytosis Microcytosis PT (9.0-12.0) sec INR (<1.2) APTT (22.0-30.0) sec Sodium (137-145) mmol/L Potassium (3.5-5.1) mmol/L Chloride (98-107) mmol/L Carbon Dioxide (22-30) mmol/L Anion Gap mmol/L BUN (9-20) mg/dL Creatinine (0.66-1.25) mg/dL Est GFR (CKD-EPI)AfAm (>60 ml/min/1.73 sqM) Est GFR (CKD-EPI)NonAf (>60 ml/min/1.73 sqM) Glucose (74-99) mg/dL Plasma Lactic Acid [place] 1.1 (0.7-2.0) mmol/L Calcium (8.4-10.2) mg/dL Total Bilirubin (0.2-1.3) mg/dL AST (17-59) U/L ALT (4-49) U/L Alkaline Phosphatase (38-126) U/L Total Protein (6.3-8.2) g/dL Albumin (3.5-5.0) g/dL Lipase (23-300) U/L Urine Color Yellow Urine Appearance Turbid (Clear) Urine pH 8.5 H (5.0-8.0) Ur Specific [place] 1.020 (1.001-1.035) Urine Protein 4+ H (Negative) Urine Glucose (UA) Negative (Negative) Urine Ketones Negative (Negative) Urine Blood Negative (Negative) Urine Nitrite Positive (Negative) Urine Bilirubin Negative (Negative) Urine Urobilinogen <2.0 (<2.0) mg/dL Ur Leukocyte Esterase Moderate H (Negative) Urine WBC 16 H (0-5) /hpf Triple Phos Crystals Many H (None) /hpf Urine Bacteria Many H (None) /hpf Urine Mucus Occasional H (None) /hpf Coronavirus (PCR) Not Detected (Not Detectd) Disposition <Brenden Day - Last Filed: 11/26/20 22:13> Is patient prescribed a controlled substance at d/c from ED?: No <Dipak Ulrich - Last Filed: 11/27/20 05:53> Clinical Impression: UTI (urinary tract infection), Altered mental status, Incontinence of urine Disposition: ADMITTED IP TO THIS HOSP Condition: Fair
--- NOTE | 2020-11-26 22:49 | XR ---
EXAMINATION TYPE: XR abdomen 2V DATE OF EXAM: 11/26/2020 COMPARISON: 07/20/2020 HISTORY: Abdominal pain TECHNIQUE: Supine and upright views FINDINGS: There is bone gastrostomy catheter noted in the mid abdomen. This is at the greater curvatu re of the stomach. There is no evidence of free air. Lung bases are clear. I see no sign of a mass. T here is some large bowel gas that could relate to mild ileus. There are phleboliths in the pelvis. Th ere is old ununited subcapital fracture left femur. IMPRESSION: There is probably some mild large bowel ileus. No mechanical bowel obstruction. No free a ir.
--- NOTE | 2020-11-26 22:52 | XR ---
EXAMINATION TYPE: XR chest 2V DATE OF EXAM: 11/26/2020 COMPARISON: 08/12/2020 HISTORY: Abdominal pain TECHNIQUE: 2 views FINDINGS: There is some linear infiltrate and atelectasis in the right lung base. Heart size is lakeisha l. There is no heart failure. There is no pleural effusion. IMPRESSION: There is clearing of the loculated right pleural effusion compared to old exam. No heart failure. There is some residual minimal linear infiltrate and atelectasis in the right lower lobe.
[2020-11-26 23:25] LABS: ALT 16 U/L (4-49); AST 32 U/L (17-59); African American GFR (CKD) >90 (>60 ml/min/1.73 sqM); Albumin 3.9 g/dL (3.5-5.0); Alkaline Phosphatase 92 U/L (38-126); Anion Gap 11 mmol/L; Blood Urea Nitrogen 24 mg/dL (9-20); Calcium 9.3 mg/dL (8.4-10.2); Carbon Dioxide 22 mmol/L (22-30); Chloride 105 mmol/L (98-107); Glucose 85 mg/dL (74-99); Lipase 594 U/L (23-300); Non-African American GFR(CKD) >90 (>60 ml/min/1.73 sqM); Sodium 138 mmol/L (137-145); Total Bilirubin 0.5 mg/dL (0.2-1.3)
[2020-11-26 23:30] LABS: Potassium 4.7 mmol/L (3.5-5.1)
[2020-11-26 23:38] LABS: Anisocytosis Moderate; Basophils # (A) 0.1 k/uL (0-0.2); Basophils % (A) 1 %; Eosinophils # (A) 0.5 k/uL (0-0.7); Eosinophils % (A) 6 %; HCT 37.3 % (39.0-53.0); Hypochromasia Slight; Lymphocytes # (A) 0.9 k/uL (1.0-4.8); Lymphocytes % (A) 13 %; MCH 26.4 pg (25.0-35.0); MCHC 32.3 g/dL (31.0-37.0); MCV 81.9 fL (80.0-100.0); Mean Platelet Volume 8.7; Microcytosis Slight; Monocytes # (A) 0.5 k/uL (0-1.0); Monocytes % (A) 7 %; Neutrophils # (A) 5.4 k/uL (1.3-7.7); Neutrophils % (A) 73 %; Platelet Count 403 k/uL (150-450); RBC 4.55 m/uL (4.30-5.90); RDW 21.4 % (11.5-15.5); WBC 7.4 k/uL (3.8-10.6)
[2020-11-26 23:39] LABS: INR 1.1 (<1.2); Prothrombin Time 11.4 sec (9.0-12.0)
[2020-11-26 23:44] LABS: Partial Thromboplastin Time 21.6 sec (22.0-30.0)
[2020-11-26 23:44] LABS: Appearance,Urine Turbid (Clear); Bacteria,Urine Many /hpf; Bilirubin,Urine Negative (Negative); Blood,Urine Negative (Negative); Color,Urine Yellow; Glucose,Urine (UA) Negative (Negative); Ketones,Urine Negative (Negative); Leukocyte Esterase,Urine Moderate (Negative); Mucus,Urine Occasional /hpf; Nitrite,Urine Positive (Negative); PH, Urine 8.5 (5.0-8.0); Protein,Urine 4+ (Negative); Triple Phosphate Crystal,Urine Many /hpf; Urobilinogen,Urine <2.0 mg/dL (<2.0); WBC,Urine 16 /hpf (0-5)
[2020-11-27] MEDS ORDERED: ONDANSETRON 4 MG/2 ML VIAL IVP PRN (00:31)
[2020-11-27] MEDS ORDERED: NALOXONE 0.4 MG/ML 1 ML VIAL IV PRN (00:31)
[2020-11-27] MEDS ORDERED: MORPHINE SULFATE 4 MG/ML SYRINGE IV PRN (00:31)
[2020-11-27] MEDS: 0.9% NACL WITH KCL 20 MEQ/L 1,000 ML IV SCH (02:33)
[2020-11-27] MEDS: LACOSAMIDE IV 150 MG in SODIUM CHLORIDE 0.9% 50 ML IVPB SCH ×3 (02:33→21:05)
[2020-11-27 06:18] LABS: Glucose,Whole Blood 88 mg/dL (75-99)
[2020-11-27] MEDS ORDERED: ALBUTEROL NEBULIZED 2.5 MG/3 ML INHALATION PRN (11:48)
[2020-11-27] MEDS ORDERED: ACETAMINOPHEN ORAL SUSP 160 MG/5 ML CUP PEG/G-TUBE PRN (11:48)
[2020-11-27] MEDS ORDERED: guaiFENesin SYRUP 100MG/5ML 200 MG/10 ML CUP PEG/G-TUBE PRN (11:48)
[2020-11-27] MEDS ORDERED: KETOROLAC 15 MG/ML 1 ML VIAL IVP PRN (11:50)
[2020-11-27] MEDS ORDERED: SCOPOLAMINE 1.5MG/72HR PATCH TRANSDERM SCH (12:00)
--- NOTE | 2020-11-27 13:49 | P.HPIM ---
History of Present Illness 60-year-old male presents via EMS from [facility] with his sister who is his power of patent prosecution attorney. All history is obtained per sister is the patient is nonverbal. She relates that it seems as though his abdomen may be slightly distended. She also states that he is had a gurgling cough. He also has had some slight urine draining around his Stein catheter. She relates that he is only been back to the [facility] for approximately one week. He was hospitalized for 3 weeks prior at [facility] for sepsis, urinary tract infection, and pneumonia. Sister relates that he was on meropenem for several weeks as he had resistant infections. He is no longer on antibiotics. The sister relates that his temperature is elevated as compared to normal. He apparently has a normal temperature around 97 and today he was 98. She denies any actual known fever. He does have a long history of multiple sclerosis and multiple other medical problems. He has chronic decubitus ulcers in the sacral and heel regions. He has significant contractures. He apparently can sometimes communicate through I her facial gestures but the sister thinks that his mental status is decreased because he does not do this as much recently. No other identifiable complaints or modifying factors but history is limited due to patient's chronic debilitated state. Patient had a CT of the abdomen patient appeared to have partial small bowel obstruction or ileus general surgery will be consulted to feedings will be held scopolamine patch will be held. Review of Systems Unable to obtain due to his clinical condition Past Medical History Past Medical History: Deep Vein Thrombosis (DVT), GERD/Reflux, Hypertension, Musculoskeletal Disorder, Neurologic Disorder, Pneumonia, Skin Disorder Additional Past Medical History / Comment(s): Pt recently hospitalized at [facility] for extensive stay with seizure/pneumonia/UTI with sepsis/respirtory failure/vented-Pt diagnosed with multiple sclerosis at the age of 20 yrs, cognitive impairment, sister states when he is feeling well he could speak a few words/nod head appropriately/give thumbs up/roll eyes but when ill is nonverbal, pt has dysphagia/NPO with peg tube, contractures, trigeminal neuralgia, dysarthria/anarthria/neurogenic bladder with IDC-UTIs/sepsis, multiple pneumonias, recent seizure-last one 07/03/20, incontinent of stool, pt has had decubitus ulcer coccyx-sister unsure of skin condition at this time, past anemia r/t heparin/epistaxiis which involved nasal packing/transfusions, DVT bilateral arms. Currently residing at [facility]. Wears oxygen at 2L per n/c. History of Any Multi-Drug Resistant Organisms: ESBL, MRSA Date of last positivie culture/infection: 09/13/19-MRSA; 11/23/19 ESBL-E.coli MDRO Source:: Broch lavage-Mrsa; Urine -ESBL Past Surgical History: Tonsillectomy Additional Past Surgical History / Comment(s): Gastrostomy, peg tube, I&D coccyx decubitius, bilateral lasik eye surgery. Past Anesthesia/Blood Transfusion Reactions: No Reported Reaction Additional Past Anesthesia/Blood Transfusion Reaction / Comment(s): Pt has received blood in past without reaction. Past Psychological History: Depression Additional Psychological History / Comment(s): Pt resides at [facility]. He normally is in bed/amita lift to wheelchair. Has peg/IDC Smoking Status: Unknown if ever smoked Past Alcohol Use History: None Reported Past Drug Use History: None Reported - Past Family History Father Family Medical History: Myocardial Infarction (DC) Mother Family Medical History: Hypertension, Myocardial Infarction (DC) Additional Family Medical History / Comment(s): Mother of a DC at the age of 73 yrs. Medications and Allergies Home Medications Medication Instructions Recorded Confirmed Type Cholecalciferol [Vitamin D3 (25 1,000 unit PEG/G-TUBE DAILY@0900 12/28/17 11/27/20 History Mcg = 1000 Iu)] guaiFENesin [guaiFENesin Oral 200 mg PEG/G-TUBE Q6H PRN 12/28/17 11/27/20 History Solution] Acetaminophen Oral Susp [Tylenol] 320 mg PEG/G-TUBE Q6H PRN 01/26/19 11/27/20 History Oxybutynin Chloride [Ditropan Oral 5 mg PEG/G-TUBE TID@0600,1400,2200 09/08/19 11/27/20 History Soln] Ipratropium-Albuterol Nebulize 3 ml INHALATION RT-Q6H 12/16/19 11/27/20 History [Duoneb 0.5 mg-3 mg/3 ml Soln] Albuterol Sulfate [Proair Hfa] 2 puff INHALATION RT-Q4H PRN 04/14/20 11/27/20 History Baclofen [Lioresal] 10 mg PEG/G-TUBE TID@0600,1400,2200 07/16/20 11/27/20 History Lacosamide [Vimpat] 150 mg PEG/G-TUBE BID@0900,2100 07/16/20 11/27/20 History carBAMazepine [TEGretol] 200 mg PEG/G-TUBE BID@0900,2100 07/30/20 11/27/20 History Scopolamine [Scopolamine 1 MG/72 1 patch TRANSDERM Q72H 09/07/20 11/27/20 History HR patch] Aspirin 81 mg PEG/G-TUBE DAILY@0900 11/27/20 11/27/20 History Cranberry Fruit Extract [Cranberry] 500 mg PEG/G-TUBE DAILY@0900 11/27/20 11/27/20 History Omeprazole 2mg/Ml 20 mg PEG/G-TUBE DAILY@0900 11/27/20 11/27/20 History Phenylephrine HCl [Sudafed PE] 10 mg PEG/G-TUBE TID 11/27/20 11/27/20 History amantadine HCL [Amantadine] 100 mg PEG/G-TUBE DAILY@0900 11/27/20 11/27/20 History Allergies Allergy/AdvReac Type Severity Reaction Status Date / Time meropenem [From Merrem] Allergy Rash/Hives Verified 11/27/20 09:19 Physical Exam Vitals: Vital Signs Temp Pulse Pulse Resp BP BP Pulse Ox 11/27/20 13:15 98.0 F 91 20 148/86 100 11/27/20 07:45 99 20 11/27/20 07:25 97.7 F 99 20 132/83 98 11/27/20 02:20 98.5 F 90 22 156/84 94 L 11/27/20 00:35 80 18 156/93 99 11/26/20 21:51 98.2 F 96 18 126/86 100 Intake and Output 11/26/20 11/27/20 11/27/20 22:59 06:59 14:59 Intake Total 0 Output Total 200 Balance -200 Intake: Oral 0 Output: Urine 200 Other: Voiding Method Indwelling Catheter Indwelling Catheter Weight 77.111 kg 77.111 kg 77.111 kg PHYSICAL EXAMINATION: GENERAL: She is chronically debilitated with contractures nonverbal HEENT: Pupils are round and equally reacting to light. EOMI. No scleral icterus. No conjunctival pallor. Normocephalic, atraumatic. No pharyngeal erythema. No thyromegaly. CARDIOVASCULAR: S1 and S2 present. No murmurs, rubs, or gallops. PULMONARY: Chest is clear to auscultation, no wheezing or crackles. ABDOMEN: Soft, scaphoid abdomen PEG tube site area appears to be clean sluggish bowel sounds MUSCULOSKELETAL: No joint swelling or deformity. EXTREMITIES: No cyanosis, clubbing, or pedal edema. NEUROLOGICAL: Unable to assess nonverbal contractures significant muscle at rophy. SKIN: No rashes. Results CBC & Chem 7: 11/26/20 22:50 11/26/20 22:50 Labs: Abnormal Lab Results - Last 24 Hours (Table) 11/26/20 11/26/20 11/26/20 Range/Units 22:50 22:50 22:50 Hgb 12.0 L (13.0-17.5) gm/dL Hct 37.3 L (39.0-53.0) % RDW 21.4 H (11.5-15.5) % Lymphocytes # 0.9 L (1.0-4.8) k/uL APTT 21.6 L (22.0-30.0) sec BUN 24 H (9-20) mg/dL Creatinine 0.64 L (0.66-1.25) mg/dL Lipase 594 H (23-300) U/L Urine pH (5.0-8.0) Urine Protein (Negative) Ur Leukocyte Esterase (Negative) Urine WBC (0-5) /hpf Triple Phos Crystals (None) /hpf Urine Bacteria (None) /hpf Urine Mucus (None) /hpf 11/26/20 Range/Units 23:22 Hgb (13.0-17.5) gm/dL Hct (39.0-53.0) % RDW (11.5-15.5) % Lymphocytes # (1.0-4.8) k/uL APTT (22.0-30.0) sec BUN (9-20) mg/dL Creatinine (0.66-1.25) mg/dL Lipase (23-300) U/L Urine pH 8.5 H (5.0-8.0) Urine Protein 4+ H (Negative) Ur Leukocyte Esterase Moderate H (Negative) Urine WBC 16 H (0-5) /hpf Triple Phos Crystals Many H (None) /hpf Urine Bacteria Many H (None) /hpf Urine Mucus Occasional H (None) /hpf Microbiology - Last 24 Hours (Table) 11/26/20 23:22 Urine Culture - Preliminary Urine,Voided Assessment and Plan Plan: -Ileus: Patient will be nothing by mouth Gen. surgery will be consulted scopolamine patch will be discontinued patient will be started on IV fluids hold off on PEG tube feedings -Metabolic encephalopathy -Multiple sclerosis significant ability significant cognitive impairment and the contract sugars -Motor protein calorie malnutrition -History of possible seizures for which patient is on antiseizure medications which will be resumed -History of DVT in the past Neurogenic bladder is chronic.
[2020-11-27] MEDS: BACLOFEN 10 MG TAB PEG/G-TUBE SCH ×2 (14:58→21:06)
[2020-11-27] MEDS: OXYBUTYNIN CHLORIDE 5 MG TAB PEG/G-TUBE SCH ×2 (14:58→21:06)
[2020-11-27] MEDS: PANTOPRAZOLE 40 MG/10 ML VIAL IVP SCH (14:58)
[2020-11-27 16:42] LABS: Glucose,Whole Blood 77 mg/dL (75-99)
--- NOTE | 2020-11-27 18:57 | P.GSCN ---
History of Present Illness Consult date: 11/27/20 History of present illness: History obtained per nursing. NPO except meds. He is comfortable and non-verbal. Review CT scan pending dietary orders. Past Medical History Past Medical History: Deep Vein Thrombosis (DVT), GERD/Reflux, Hypertension, Musculoskeletal Disorder, Neurologic Disorder, Pneumonia, Skin Disorder Additional Past Medical History / Comment(s): Pt recently hospitalized at [facility] for extensive stay with seizure/pneumonia/UTI with sepsis/respirtory failure/vented-Pt diagnosed with multiple sclerosis at the age of 20 yrs, cognitive impairment, sister states when he is feeling well he could speak a few words/nod head appropriately/give thumbs up/roll eyes but when ill is nonverbal, pt has dysphagia/NPO with peg tube, contractures, trigeminal neuralgia, dysarthria/anarthria/neurogenic bladder with IDC-UTIs/sepsis, multiple pneumonias, recent seizure-last one 07/03/20, incontinent of stool, pt has had decubitus ulcer coccyx-sister unsure of skin condition at this time, past anemia r/t heparin/epistaxiis which involved nasal packing/transfusions, DVT bilateral arms. Currently residing at [facility]. Wears oxygen at 2L per n/c. 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 Past Anesthesia/Blood Transfusion Reactions: No Reported Reaction Additional Past Anesthesia/Blood Transfusion Reaction / Comm: Pt has received blood in past without reaction. Past Psychological History: Depression Additional Psychological History / Comment(s): Pt resides at [facility]. He normally is in bed/amita lift to wheelchair. Has peg/IDC Smoking Status: Unknown if ever smoked Past Alcohol Use History: None Reported Past Drug Use History: None Reported - Past Family History Father Family Medical History: Myocardial Infarction (DE) Mother Family Medical History: Hypertension, Myocardial Infarction (DE) Additional Family Medical History / Comment(s): Mother of a DE at the age of 73 yrs. Medications and Allergies Home Medications Medication Instructions Recorded Confirmed Type Cholecalciferol [Vitamin D3 (25 1,000 unit PEG/G-TUBE DAILY@0900 12/28/17 11/27/20 History Mcg = 1000 Iu)] guaiFENesin [guaiFENesin Oral 200 mg PEG/G-TUBE Q6H PRN 12/28/17 11/27/20 History Solution] Acetaminophen Oral Susp [Tylenol] 320 mg PEG/G-TUBE Q6H PRN 01/26/19 11/27/20 History Oxybutynin Chloride [Ditropan Oral 5 mg PEG/G-TUBE TID@0600,1400,2200 09/08/19 11/27/20 History Soln] Ipratropium-Albuterol Nebulize 3 ml INHALATION RT-Q6H 12/16/19 11/27/20 History [Duoneb 0.5 mg-3 mg/3 ml Soln] Albuterol Sulfate [Proair Hfa] 2 puff INHALATION RT-Q4H PRN 04/14/20 11/27/20 History Baclofen [Lioresal] 10 mg PEG/G-TUBE TID@0600,1400,2200 07/16/20 11/27/20 History Lacosamide [Vimpat] 150 mg PEG/G-TUBE BID@0900,2100 07/16/20 11/27/20 History carBAMazepine [TEGretol] 200 mg PEG/G-TUBE BID@0900,2100 07/30/20 11/27/20 History Scopolamine [Scopolamine 1 MG/72 1 patch TRANSDERM Q72H 09/07/20 11/27/20 History HR patch] Aspirin 81 mg PEG/G-TUBE DAILY@0911/27/20 11/27/20 History Cranberry Fruit Extract [Cranberry] 500 mg PEG/G-TUBE DAILY@0911/27/20 11/27/20 History Omeprazole 2mg/Ml 20 mg PEG/G-TUBE DAILY@89911/27/20 11/27/20 History Phenylephrine HCl [Sudafed PE] 10 mg PEG/G-TUBE TID 11/27/20 11/27/20 History amantadine HCL [Amantadine] 100 mg PEG/G-TUBE DAILY@0911/27/2021 Hist ory Allergies Allergy/AdvReac Type Severity Reaction Status Date / Time meropenem [From Merrem] Allergy Rash/Hives Verified 11/27/20 09:19 Surgical - Exam Vital Signs Temp Pulse Resp BP Pulse Ox 98.2 F 96 18 126/86 100 11/26/20 21:51 11/26/20 21:51 11/26/20 21:51 11/26/20 21:51 11/26/20 21:51 Results - Labs 11/26/20 22:50 11/26/20 22:50 Abnormal Lab Results - Last 24 Hours (Table) 11/26/20 11/26/20 11/26/20 Range/Units 22:50 22:50 22:50 Hgb 12.0 L (13.0-17.5) gm/dL Hct 37.3 L (39.0-53.0) % RDW 21.4 H (11.5-15.5) % Lymphocytes # 0.9 L (1.0-4.8) k/uL APTT 21.6 L (22.0-30.0) sec BUN 24 H (9-20) mg/dL Creatinine 0.64 L (0.66-1.25) mg/dL Lipase 594 H (23-300) U/L Urine pH (5.0-8.0) Urine Protein (Negative) Ur Leukocyte Esterase (Negative) Urine WBC (0-5) /hpf Triple Phos Crystals (None) /hpf Urine Bacteria (None) /hpf Urine Mucus (None) /hpf 11/26/20 Range/Units 23:22 Hgb (13.0-17.5) gm/dL Hct (39.0-53.0) % RDW (11.5-15.5) % Lymphocytes # (1.0-4.8) k/uL APTT (22.0-30.0) sec BUN (9-20) mg/dL Creatinine (0.66-1.25) mg/dL Lipase (23-300) U/L Urine pH 8.5 H (5.0-8.0) Urine Protein 4+ H (Negative) Ur Leukocyte Esterase Moderate H (Negative) Urine WBC 16 H (0-5) /hpf Triple Phos Crystals Many H (None) /hpf Urine Bacteria Many H (None) /hpf Urine Mucus Occasional H (None) /hpf Microbiology - Last 24 Hours (Table) 11/26/20 23:22 Urine Culture - Preliminary Urine,Voided Diabetes panel 11/26/20 Range/Units 22:50 Sodium 138 (137-145) mmol/L Potassium 4.7 (3.5-5.1) mmol/L Chloride 105 (98-107) mmol/L Carbon Dioxide 22 (22-30) mmol/L BUN 24 H (9-20) mg/dL Creatinine 0.64 L (0.66-1.25) mg/dL Glucose 85 (74-99) mg/dL Calcium 9.3 (8.4-10.2) mg/dL AST 32 (17-59) U/L ALT 16 (4-49) U/L Alkaline Phosphatase 92 (38-126) U/L Total Protein 8.0 (6.3-8.2) g/dL Albumin 3.9 (3.5-5.0) g/dL Calcium panel 11/26/20 Range/Units 22:50 Calcium 9.3 (8.4-10.2) mg/dL Albumin 3.9 (3.5-5.0) g/dL Pituitary panel 11/26/20 Range/Units 22:50 Sodium 138 (137-145) mmol/L Potassium 4.7 (3.5-5.1) mmol/L Chloride 105 (98-107) mmol/L Carbon Dioxide 22 (22-30) mmol/L BUN 24 H (9-20) mg/dL Creatinine 0.64 L (0.66-1.25) mg/dL Glucose 85 (74-99) mg/dL Calcium 9.3 (8.4-10.2) mg/dL Adrenal panel 11/26/20 Range/Units 22:50 Sodium 138 (137-145) mmol/L Potassium 4.7 (3.5-5.1) mmol/L Chloride 105 (98-107) mmol/L Carbon Dioxide 22 (22-30) mmol/L BUN 24 H (9-20) mg/dL Creatinine 0.64 L (0.66-1.25) mg/dL Glucose 85 (74-99) mg/dL Calcium 9.3 (8.4-10.2) mg/dL Total Bilirubin 0.5 (0.2-1.3) mg/dL AST 32 (17-59) U/L ALT 16 (4-49) U/L Alkaline Phosphatase 92 (38-126) U/L Total Protein 8.0 (6.3-8.2) g/dL Albumin 3.9 (3.5-5.0) g/dL
[2020-11-27] MEDS: carBAMazepine 200 MG TAB PEG/G-TUBE SCH (21:06)
[2020-11-28 00:20] LABS: Glucose,Whole Blood 68 mg/dL (75-99)
[2020-11-28] MEDS ORDERED: DEXTROSE 50% SYRINGE 50 ML IVP STA (01:01)
[2020-11-28] MEDS ORDERED: DEXTROSE 50% SYRINGE 50 ML IVP ONE (01:05)
[2020-11-28] MEDS: DEXTROSE 5% IN WATER 1,000 ML IV SCH ×2 (01:09→13:57)
[2020-11-28] MEDS: 0.9% NACL WITH KCL 20 MEQ/L 1,000 ML IV SCH ×3 (01:09→23:43)
[2020-11-28 01:34] LABS: Glucose,Whole Blood 176 mg/dL (75-99)
[2020-11-28] MEDS: OXYBUTYNIN CHLORIDE 5 MG TAB PEG/G-TUBE SCH ×3 (05:37→21:25)
[2020-11-28] MEDS: BACLOFEN 10 MG TAB PEG/G-TUBE SCH ×3 (05:37→21:25)
[2020-11-28 06:21] LABS: Glucose,Whole Blood 118 mg/dL (75-99)
[2020-11-28] MEDS: PANTOPRAZOLE 40 MG/10 ML VIAL IVP SCH (08:57)
[2020-11-28] MEDS: LACOSAMIDE IV 150 MG in SODIUM CHLORIDE 0.9% 50 ML IVPB SCH ×2 (08:57→22:16)
[2020-11-28] MEDS: carBAMazepine 200 MG TAB PEG/G-TUBE SCH ×2 (08:57→21:25)
[2020-11-28] MEDS ORDERED: OMEPRAZOLE PEG/G-TUBE SCH (09:00)
[2020-11-28 09:46] LABS: Basophils # (A) 0.02 X 10*3/uL (0.00-0.10); Basophils % (A) 0.2 %; Eosinophils # (A) 0.49 X 10*3/uL (0.04-0.35); Eosinophils % (A) 4.7 %; HCT 37.7 % (39.6-50.0); HGB 11.4 g/dL (13.0-17.0); Lymphocytes % (A) 7.7 %; MCH 25.4 pg (27.0-32.0); MCHC 30.2 g/dL (32.0-37.0); Mean Platelet Volume 10.9 fL (9.5-12.2); Monocytes # (A) 0.67 X 10*3/uL (0.20-1.00); Monocytes % (A) 6.5 %; Neutrophils % (A) 80.4 %; Platelet Count 452 X 10*3/uL (140-440); RBC 4.49 X 10*6/uL (4.40-5.60); RDW 21.5 % (11.5-14.5); WBC 10.33 X 10*3/uL (4.50-10.00)
[2020-11-28 10:01] LABS: African American GFR (CKD) 111.7 (60.0-200.0); Albumin 3.8 g/dL (3.80-4.90); Albumin/Globulin Ratio 1.12 (1.60-3.17); Anion Gap 11.6 mmol/L (4.00-12.00); BUN/Creat Ratio 22.5 Ratio (12.00-20.00); Calcium 8.8 mg/dL (8.7-10.3); Carbon Dioxide 18.4 mmol/L (21.6-31.8); Globulin 3.4 g/dL (1.6-3.3); Non-African American GFR(CKD) 96.4 (60.0-200.0); Potassium 4.4 mmol/L (3.5-5.5); Total Bilirubin 0.2 mg/dL (0.2-1.2); Total Protein 7.2 g/dL (6.2-8.2)
[2020-11-28 11:31] LABS: Glucose,Whole Blood 106 mg/dL (75-99)
--- NOTE | 2020-11-28 13:45 | P.PN ---
Subjective Progress Note Date: 11/28/20 60-year-old male presents via EMS from [facility] with his sister who is his power of insurance defense attorney. All history is obtained per sister is the patient is nonverbal. She relates that it seems as though his abdomen may be slightly distended. She also states that he is had a gurgling cough. He also has had some slight urine draining around his Stein catheter. She relates that he is only been back to the [facility] for approximately one week. He was hospitalized for 3 weeks prior at [facility] for sepsis, urinary tract infection, and pneumonia. Sister relates that he was on meropenem for several weeks as he had resistant infections. He is no longer on antibiotics. The sister relates that his temper ature is elevated as compared to normal. He apparently has a normal temperature around 97 and today he was 98. She denies any actual known fever. He does have a long history of multiple sclerosis and multiple other medical problems. He has chronic decubitus ulcers in the sacral and heel regions. He has significant contractures. He apparently can sometimes communicate through I her facial ges tures but the sister thinks that his mental status is decreased because he does not do this as much recently. No other identifiable complaints or modifying factors but history is limited due to patient's chronic debilitated state. Patient had a CT of the abdomen patient appeared to have partial small bowel obstruction or ileus general surgery will be consulted to feedings will be held scopolamine patch will be held. 11/28/2020 Patient seen sitting up in bed alert, in no acute distress. WBC elevated at 10.3, he has had no fever, tachycardic heart rate 102. Tolerating tube feeds with minimal residuals. Patient has moved his bowels. Preliminary urine culture growing Proteus species. Review of Systems Unable to obtain due to his clinical condition Objective - Vital Signs Vital signs: Vital Signs Temp 98.9 F 11/28/20 06:35 Pulse 102 H 11/28/20 07:50 Resp 20 11/28/20 07:50 BP 137/77 11/28/20 06:35 Pulse Ox 98 11/28/20 07:37 Intake & Output 11/27/20 11/28/20 11/28/20 18:59 06:59 18:59 Output Total 625 Balance -625 Weight 77.111 kg Output: Urine 625 Other: Voiding Method Indwelling Catheter Indwelling Catheter Indwelling Catheter # Bowel Movements 1 - Exam GENERAL: She is chronically debilitated with contractures nonverbal HEENT: Pupils are round and equally reacting to light. EOMI. No scleral icterus. No conjunctival pallor. Normocephalic, atraumatic. No pharyngeal erythema. No thyromegaly. CARDIOVASCULAR: S1 and S2 present. No murmurs, rubs, or gallops. PULMONARY: Chest is clear to auscultation, no wheezing or crackles. ABDOMEN: Soft, scaphoid abdomen PEG tube site area appears to be clean sluggish bowel sounds MUSCULOSKELETAL: No joint swelling or deformity. EXTREMITIES: No cyanosis, clubbing, or pedal edema. NEUROLOGICAL: Unable to assess nonverbal contractures significant muscle atrophy. SKIN: No rashes. - Labs CBC & Chem 7: 11/28/20 05:45 11/28/20 05:45 Labs: Abnormal Lab Results - Last 24 Hours (Table) 11/28/20 11/28/20 11/28/20 Range/Units 00:18 01:31 05:45 WBC 10.33 H (4.50-10.00) X 10*3/uL Hgb 11.4 L (13.0-17.0) g/dL Hct 37.7 L (39.6-50.0) % MCH 25.4 L (27.0-32.0) pg MCHC 30.2 L (32.0-37.0) g/dL RDW 21.5 H (11.5-14.5) % Plt Count 452 H (140-440) X 10*3/uL Immature Gran # 0.05 H (0.00-0.04) X 10*3/uL Neutrophils # 8.30 H (1.80-7.70) X 10*3/uL Lymphocytes # 0.80 L (0.90-5.00) X 10*3/uL Eosinophils # 0.49 H (0.04-0.35) X 10*3/uL Carbon Dioxide (21.6-31.8) mmol/L BUN/Creatinine Ratio (12.00-20.00) Ratio Glucose (70-110) mg/dL POC Glucose (mg/dL) 68 L 176 H (75-99) mg/dL Globulin (1.6-3.3) g/dL Albumin/Globulin Ratio (1.60-3.17) g/dL 11/28/20 11/28/20 11/28/20 Range/Units 05:45 06:20 11:24 WBC (4.50-10.00) X 10*3/uL Hgb (13.0-17.0) g/dL Hct (39.6-50.0) % MCH (27.0-32.0) pg MCHC (32.0-37.0) g/dL RDW (11.5-14.5) % Plt Count (140-440) X 10*3/uL Immature Gran # (0.00-0.04) X 10*3/uL Neutrophils # (1.80-7.70) X 10*3/uL Lymphocytes # (0.90-5.00) X 10*3/uL Eosinophils # (0.04-0.35) X 10*3/uL Carbon Dioxide 18.4 L (21.6-31.8) mmol/L BUN/Creatinine Ratio 22.50 H (12.00-20.00) Ratio Glucose 121 H (70-110) mg/dL POC Glucose (mg/dL) 118 H 106 H (75-99) mg/dL Globulin 3.4 H (1.6-3.3) g/dL Albumin/Globulin Ratio 1.12 L (1.60-3.17) g/dL Microbiology - Last 24 Hours (Table) 11/26/20 23:22 Urine Culture - Preliminary Urine,Voided Proteus spec 11/26/20 22:50 Blood Culture - Preliminary Blood No Growth after 24 hours Assessment and Plan Assessment: Plan: -Ileus: General surgery following. Patient has moved his bowels, tolerating tube feeds with minimal residuals. -Leukocytosis: Rule out possibility of infectious etiology, recheck CBC white count continues to trend up consider starting antimicrobial therapy and infectious workup. Urine culture preliminary currently growing Proteus -Metabolic encephalopathy -Multiple sclerosis significant ability significant cognitive impairment and the contract sugars -Motor protein calorie malnutrition -History of possible seizures for which patient is on antiseizure medications which will be resumed -History of DVT in the past -Neurogenic bladder is chronic.
--- NOTE | 2020-11-28 15:01 | XR ---
EXAMINATION TYPE: XR abdomen 2V DATE OF EXAM: 11/28/2020 COMPARISON: 11/26/2020 HISTORY: Abdominal pain. Ileus. TECHNIQUE: 3 views supine and upright FINDINGS: There is gastrostomy tube. There is no sign of intestinal obstruction or pneumoperitoneum. There is retained fecal material in the rectum. There is some mild atelectasis right lung base. There is old ununited left femoral neck fracture. IMPRESSION: Retained fecal material in the rectum and rectal fecal impaction. No free air. There is some new mild atelectasis right lung base compared to old exam.
--- NOTE | 2020-11-28 15:53 | P.PN ---
Subjective Progress Note Date: 11/28/20 Patient resting comfortably. AXR ordered and reviewed without colonic or small bowel obstruction. Presence of diffuse bowel gas pattern. AXR report reviewed with fecal impaction. Recommend milk of molasses enema to address impaction. Objective - Vital Signs Vital signs: Vital Signs Temp 98.5 F 11/28/20 13:35 Pulse 85 11/28/20 13:35 Resp 18 11/28/20 13:35 BP 137/83 11/28/20 13:35 Pulse Ox 100 11/28/20 13:35 Intake & Output 11/27/20 11/28/20 11/28/20 18:59 06:59 18:59 Output Total 625 Balance -625 Weight 77.111 kg Output: Urine 625 Other: Voiding Method Indwelling Catheter Indwelling Catheter Indwelling Catheter # Bowel Movements 1 - Labs CBC & Chem 7: 11/28/20 05:45 11/28/20 05:45 Labs: Abnormal Lab Results - Last 24 Hours (Table) 11/28/20 11/28/20 11/28/20 Range/Units 00:18 01:31 05:45 WBC 10.33 H (4.50-10.00) X 10*3/uL Hgb 11.4 L (13.0-17.0) g/dL Hct 37.7 L (39.6-50.0) % MCH 25.4 L (27.0-32.0) pg MCHC 30.2 L (32.0-37.0) g/dL RDW 21.5 H (11.5-14.5) % Plt Count 452 H (140-440) X 10*3/uL Immature Gran # 0.05 H (0.00-0.04) X 10*3/uL Neutrophils # 8.30 H (1.80-7.70) X 10*3/uL Lymphocytes # 0.80 L (0.90-5.00) X 10*3/uL Eosinophils # 0.49 H (0.04-0.35) X 10*3/uL Carbon Dioxide (21.6-31.8) mmol/L BUN/Creatinine Ratio (12.00-20.00) Ratio Glucose (70-110) mg/dL POC Glucose (mg/dL) 68 L 176 H (75-99) mg/dL Globulin (1.6-3.3) g/dL Albumin/Globulin Ratio (1.60-3.17) g/dL 11/28/20 11/28/20 11/28/20 Range/Units 05:45 06:20 11:24 WBC (4.50-10.00) X 10*3/uL Hgb (13.0-17.0) g/dL Hct (39.6-50.0) % MCH (27.0-32.0) pg MCHC (32.0-37.0) g/dL RDW (11.5-14.5) % Plt Count (140-440) X 10*3/uL Immature Gran # (0.00-0.04) X 10*3/uL Neutrophils # (1.80-7.70) X 10*3/uL Lymphocytes # (0.90-5.00) X 10*3/uL Eosinophils # (0.04-0.35) X 10*3/uL Carbon Dioxide 18.4 L (21.6-31.8) mmol/L BUN/Creatinine Ratio 22.50 H (12.00-20.00) Ratio Glucose 121 H (70-110) mg/dL POC Glucose (mg/dL) 118 H 106 H (75-99) mg/dL Globulin 3.4 H (1.6-3.3) g/dL Albumin/Globulin Ratio 1.12 L (1.60-3.17) g/dL Microbiology - Last 24 Hours (Table) 11/26/20 23:22 Urine Culture - Preliminary Urine,Voided Proteus spec 11/26/20 22:50 Blood Culture - Preliminary Blood No Growth after 24 hours
[2020-11-28 16:36] LABS: Glucose,Whole Blood 119 mg/dL (75-99)
[2020-11-29 00:20] LABS: Glucose,Whole Blood 96 mg/dL (75-99)
[2020-11-29] MEDS: OXYBUTYNIN CHLORIDE 5 MG TAB PEG/G-TUBE SCH ×3 (05:16→22:13)
[2020-11-29] MEDS: BACLOFEN 10 MG TAB PEG/G-TUBE SCH ×3 (05:16→22:13)
[2020-11-29] MEDS: DEXTROSE 5% IN WATER 1,000 ML IV SCH ×2 (05:16→14:05)
[2020-11-29 05:57] LABS: Glucose,Whole Blood 114 mg/dL (75-99)
[2020-11-29 08:04] LABS: Anisocytosis Moderate; HCT 34.4 % (39.0-53.0); HGB 11.1 gm/dL (13.0-17.5); Hypochromasia Slight; MCH 25.8 pg (25.0-35.0); MCHC 32.4 g/dL (31.0-37.0); MCV 79.6 fL (80.0-100.0); Mean Platelet Volume 9.7; Microcytosis Slight; Platelet Count 291 k/uL (150-450); RBC 4.32 m/uL (4.30-5.90); RDW 20.4 % (11.5-15.5); WBC 7.5 k/uL (3.8-10.6)
[2020-11-29] MEDS: carBAMazepine 200 MG TAB PEG/G-TUBE SCH ×2 (08:08→20:11)
[2020-11-29] MEDS: PANTOPRAZOLE 40 MG/10 ML VIAL IVP SCH (08:08)
[2020-11-29] MEDS: LACOSAMIDE IV 150 MG in SODIUM CHLORIDE 0.9% 50 ML IVPB SCH ×2 (09:37→22:12)
[2020-11-29 09:52] LABS: African American GFR (CKD) >90 (>60 ml/min/1.73 sqM); Anion Gap 12 mmol/L; Blood Urea Nitrogen 12 mg/dL (9-20); Calcium 8.3 mg/dL (8.4-10.2); Carbon Dioxide 17 mmol/L (22-30); Chloride 103 mmol/L (98-107); Glucose 111 mg/dL (74-99); Non-African American GFR(CKD) >90 (>60 ml/min/1.73 sqM); Sodium 132 mmol/L (137-145)
[2020-11-29 10:27] LABS: Potassium 5.4 mmol/L (3.5-5.1)
[2020-11-29 11:41] LABS: Glucose,Whole Blood 98 mg/dL (75-99)
[2020-11-29] MEDS ORDERED: SODIUM POLYSTYRENE SULFONATE 15 GM/60 ML BOTTLE PO ONE (11:52)
--- NOTE | 2020-11-29 12:04 | P.PN ---
<Deepa Oneill - Last Filed: 11/29/20 12:07> Subjective Progress Note Date: 11/29/20 CHIEF COMPLAINT: Fecal impaction HISTORY OF PRESENT ILLNESS: Surgical service is following for fecal impaction. Patient is nonverbal. Patient did have a large bowel movement yesterday and today. He will be getting the milk of molasses enema today. Per nursing no nausea or vomiting reported. Patient is resting comfortably in bed. Afebrile WBC 7.5 sodium 132 potassium 5.4 PHYSICAL EXAM: VITAL SIGNS: Reviewed. GENERAL: Well-developed in no acute distress. HEENT: No sclera icterus. Extraocular movements grossly intact. Moist buccal mucosa. Head is atraumatic, normocephalic. ABDOMEN: Soft. Nondistended. Nontender. NEUROLOGIC: Patient nonverbal and sleeping comfortably ASSESSMENT: 1. Fecal impaction 2. Hyperkalemia: Kayexalate ordered by medicine service 3. History of multiple sclerosis 4. Cognitive impairment 5. History of seizure disorder 6. UTI PLAN: -Continue supportive care -Continue conservative management of fecal impaction -Patient received milk of molasses enema -Antibiotics per medicine service for UTI Physician Vascular Surgeon note has been reviewed by physician. Signing provider agrees with the documented findings, assessment, and plan of care. Objective - Vital Signs Vital signs: Vital Signs Temp 98.5 F 11/29/20 07:05 Pulse 104 H 11/29/20 07:05 Resp 20 11/29/20 07:05 BP 163/84 11/29/20 07:05 Pulse Ox 98 11/29/20 07:05 Intake & Output 11/28/20 11/29/20 11/29/20 18:59 06:59 18:59 Other: Voiding Method Indwelling Catheter Indwelling Catheter Indwelling Catheter # Voids 2 # Bowel Movements 1 - Labs CBC & Chem 7: 11/29/20 06:05 11/29/20 08:58 Labs: Abnormal Lab Results - Last 24 Hours (Table) 11/28/20 11/29/20 11/29/20 Range/Units 16:33 05:55 06:05 Hgb 11.1 L (13.0-17.5) gm/dL Hct 34.4 L (39.0-53.0) % MCV 79.6 L (80.0-100.0) fL RDW 20.4 H (11.5-15.5) % Sodium (137-145) mmol/L Potassium (3.5-5.1) mmol/L Carbon Dioxide (22-30) mmol/L Creatinine (0.66-1.25) mg/dL Glucose (74-99) mg/dL POC Glucose (mg/dL) 119 H 114 H (75-99) mg/dL Calcium (8.4-10.2) mg/dL 11/29/20 Range/Units 08:58 Hgb (13.0-17.5) gm/dL Hct (39.0-53.0) % MCV (80.0-100.0) fL RDW (11.5-15.5) % Sodium 132 L (137-145) mmol/L Potassium 5.4 H (3.5-5.1) mmol/L Carbon Dioxide 17 L (22-30) mmol/L Creatinine 0.64 L (0.66-1.25) mg/dL Glucose 111 H (74-99) mg/dL POC Glucose (mg/dL) (75-99) mg/dL Calcium 8.3 L (8.4-10.2) mg/dL Microbiology - Last 24 Hours (Table) 11/26/20 23:22 Urine Culture - Final Urine,Voided Proteus mirabilis 11/26/20 22:50 Blood Culture - Preliminary Blood No Growth after 48 hours <Lashonda Brody - Last Filed: 11/29/20 18:20> Subjective Patient seen and evaluated. Nurse, multiple bowel movements today. May restart tube feeds. Repeat abd ominal films tomorrow. Objective - Vital Signs Vital signs: Vital Signs Temp 99.8 F H 11/29/20 13:55 Pulse 98 11/29/20 13:55 Resp 22 11/29/20 13:55 BP 127/79 11/29/20 13:55 Pulse Ox 100 11/29/20 13:55 Intake & Output 11/28/20 11/29/20 11/29/20 18:59 06:59 18:59 Other: Voiding Method Indwelling Catheter Indwelling Catheter Indwelling Catheter # Voids 2 # Bowel Movements 1 2 - Labs CBC & Chem 7: 11/29/20 06:05 11/29/20 08:58 Labs: Abnormal Lab Results - Last 24 Hours (Table) 11/29/20 11/29/20 11/29/20 Range/Units 05:55 06:05 08:58 Hgb 11.1 L (13.0-17.5) gm/dL Hct 34.4 L (39.0-53.0) % MCV 79.6 L (80.0-100.0) fL RDW 20.4 H (11.5-15.5) % Sodium 132 L (137-145) mmol/L Potassium 5.4 H (3.5-5.1) mmol/L Carbon Dioxide 17 L (22-30) mmol/L Creatinine 0.64 L (0.66-1.25) mg/dL Glucose 111 H (74-99) mg/dL POC Glucose (mg/dL) 114 H (75-99) mg/dL Calcium 8.3 L (8.4-10.2) mg/dL 11/29/20 Range/Units 17:04 Hgb (13.0-17.5) gm/dL Hct (39.0-53.0) % MCV (80.0-100.0) fL RDW (11.5-15.5) % Sodium (137-145) mmol/L Potassium (3.5-5.1) mmol/L Carbon Dioxide (22-30) mmol/L Creatinine (0.66-1.25) mg/dL Glucose (74-99) mg/dL POC Glucose (mg/dL) 103 H (75-99) mg/dL Calcium (8.4-10.2) mg/dL Microbiology - Last 24 Hours (Table) 11/26/20 23:22 Urine Culture - Final Urine,Voided Proteus mirabilis 11/26/20 22:50 Blood Culture - Preliminary Blood No Growth after 48 hours
[2020-11-29 17:05] LABS: Glucose,Whole Blood 103 mg/dL (75-99)
--- NOTE | 2020-11-29 18:52 | PN ---
PROGRESS NOTE DATE OF SERVICE: 11/29/2020 This 60-year-old gentleman who was admitted with ileus and possibly acute UTI with sepsis continues to be stuporous. He is receiving PEG tube feeds. The patient is barely responsive at this time. The patient also has hyponatremia and multiple biochemical abnormalities. Urine culture showed Proteus mirabilis resistant to multiple antibiotics. Past medical history reviewed. Review of systems could not be taken. MEDICATIONS: Medications prior to admission are reviewed and included Tylenol, Ventolin, Tegretol, Rocephin, Robitussin, Toradol, Protonix. PHYSICAL EXAMINATION: Patient is stuporous. Pulse is 98, blood pressure 127/79, respiration 22, temperature 99.8, pulse ox 100% on 2 L. HEENT: Conjunctivae normal. NECK: No jugular venous distention. CARDIOVASCULAR SYSTEM: S1, S2 muffled. RESPIRATORY SYSTEM: Breath sounds diminished at the bases. A few scattered rhonchi. ABDOMEN: Soft. Status post PEG tube placement. LEGS: No edema. No swelling. NERVOUS SYSTEM: No focal deficit. LABS: WBC 7.5, hemoglobin 11.1. Sodium 132, potassium 5.4. ASSESSMENT: 1. Acute urinary tract infection with sepsis, possibly present on admission. 2. Ileus. 3. Change in mental status, metabolic encephalopathy, acute on chronic. 4. Leukocytosis. 5. Multiple sclerosis with cognitive impairment and contractures. 6. Mild protein-calorie malnutrition. 7. Hyponatremia. 8. Hyperkalemia. 9. Anemia, normocytic anemia of chronic disease. 10.History of deep vein thrombosis. 11.Hypertension. 12.History of pneumonia. 13.Status post PEG tube placement. 14.History of respiratory failure. 15.Extended-spectrum beta-lactamase. 16.History of methicillin-resistant Staphylococcus aeruginosa. 17.History of tonsillectomy. 18.History of depression. 19.FULL CODE. RECOMMENDATIONS AND DISCUSSION: In this 60-year-old gentleman who presented with multiple complex medical issues, we will monitor the patient closely, continue the current medications, continue symptomatic treatment. Broad-spectrum IV antibiotics. Continue with tube feeds. Monitor potassium closely. Kayexalate 15 grams currently. Otherwise, continue with D5 drip. Monitor blood sugars closely. Prognosis guarded. Further recommendations to follow. MMODL / IJN: [id number] / [facility]
[2020-11-29] MEDS: METOPROLOL TARTRATE 25 MG TAB PO SCH (23:06)
[2020-11-30 00:54] LABS: Glucose,Whole Blood 133 mg/dL (75-99)
[2020-11-30] MEDS: BACLOFEN 10 MG TAB PEG/G-TUBE SCH ×3 (05:14→21:30)
[2020-11-30] MEDS: OXYBUTYNIN CHLORIDE 5 MG TAB PEG/G-TUBE SCH ×3 (05:14→21:30)
[2020-11-30] MEDS: DEXTROSE 5% IN WATER 1,000 ML IV SCH ×2 (05:56→21:31)
[2020-11-30 06:30] LABS: Glucose,Whole Blood 143 mg/dL (75-99)
[2020-11-30] MEDS: PANTOPRAZOLE 40 MG/10 ML VIAL IVP SCH (08:35)
[2020-11-30] MEDS: METOPROLOL TARTRATE 25 MG TAB PO SCH ×2 (08:36→21:30)
[2020-11-30] MEDS: carBAMazepine 200 MG TAB PEG/G-TUBE SCH ×2 (08:37→21:30)
--- NOTE | 2020-11-30 09:43 | XR ---
EXAMINATION TYPE: XR abdomen 2V DATE OF EXAM: 11/30/2020 COMPARISON: 11/20/2019 INDICATION: Ileus TECHNIQUE: Supine and upright view abdomen FINDINGS: There is a nonspecific bowel gas pattern. No free air is identified. There is a catheter overlying th e left abdomen with tip in the midline with the tip apparently within the stomach compatible with the patient's PEG tube. Psoas margins are indistinct. Large fecal bolus of the rectum. There is a chronic left femoral neck f racture. No organomegaly is present. IMPRESSION: 1. Large fecal bolus in the rectum. Correlate for fecal impaction. 2. Chronic left femoral neck fracture.
[2020-11-30] MEDS: LACOSAMIDE IV 150 MG in SODIUM CHLORIDE 0.9% 50 ML IVPB SCH ×2 (10:25→21:30)
[2020-11-30 11:05] LABS: Glucose,Whole Blood 113 mg/dL (75-99)
[2020-11-30] MEDS ORDERED: MAGNESIUM HYDROXIDE 2,400 MG/10 ML CUP PO ONE (12:30)
[2020-11-30] MEDS ORDERED: LACTULOSE 20 GM/30 ML CUP PO ONE (12:30)
--- NOTE | 2020-11-30 13:43 | P.PN ---
Subjective Progress Note Date: 11/30/20 CHIEF COMPLAINT: Fecal impaction HISTORY OF PRESENT ILLNESS: Surgical service is following for fecal impaction. Patient is nonverbal. Patient did have large loose bowel movements yesterday. Abdominal x-ray still showing a large fecal bolus in the rectum. Correlate for fecal impaction. Patient lying in bed comfortably. No evidence of pain. Per nurse no nausea or vomiting. 2 feeds are currently on hold. He did have a temp of 102 last night. Per nursing staff for catheter was changed. It appears that the catheter had not been working appropriately and then the nurse reported that the urine was pus like in color. Patient is on antibiotics for UTI. No new labs for today PHYSICAL EXAM: VITAL SIGNS: Reviewed GENERAL: Well-developed in no acute distress. HEENT: No sclera icterus. Extraocular movements grossly intact. Moist buccal mucosa. Head is atraumatic, normocephalic. Hears conversational speech. No nasal drainage. NECK: Supple without lymphadenopathy. CHEST: Non-labored respirations and equal bilateral excursions. CARDIOVASCULAR: Palpable 2+ radial pulses. ABDOMEN: Soft. Nondistended. Nontender. MUSCULOSKELETAL: No clubbing or cyanosis. NEUROLOGIC: Nonverbal lying in bed comfortably SKIN: Well perfused. Good skin turgor. ASSESSMENT: 1. Fecal impaction: Abdominal x-ray still showing evidence of fecal impaction 2. Hyperkalemia status post Kayexalate 3. History of multiple sclerosis 4. Cognitive impairment 5. History of seizure disorder 6. UTI PLAN: -We'll give another milk of molasses enema, a dose of lactulose 30 ml and milk of mag -Okay to resume tube feedings -Continue supportive care -Continue antibiotics for UTI per medicine service Physician Podiatric Assistant note has been reviewed by physician. Signing provider agrees with the documented findings, assessment, and plan of care. Objective - Vital Signs Vital signs: Vital Signs Temp 97.7 F 11/30/20 07:57 Pulse 101 H 11/30/20 07:57 Resp 20 11/30/20 07:57 BP 122/82 11/30/20 07:57 Pulse Ox 100 11/30/20 07:57 Intake & Output 11/29/20 11/30/20 11/30/20 18:59 06:59 18:59 Intake Total 200 Output Total 800 Balance -600 Intake: Intake, IV Titration 200 Amount Lacosamide IV 150 mg In 100 Sodium Chloride 0.9% 50 ml @ 100 mls/hr IVPB BID [facility] Rx#:[id number] cefTRIAXone 1 gm In 100 Sodium Chloride 0.9% 50 ml @ 100 mls/hr IVPB Q24HR [facility] Rx#:[id number] Output: Urine 800 Uretheral (Stein) 800 Other: Voiding Method Indwelling Catheter Indwelling Catheter Indwelling Catheter # Bowel Movements 2 - Labs CBC & Chem 7: 12/01/20 08:10 12/01/20 08:10 Labs: Abnormal Lab Results - Last 24 Hours (Table) 11/29/20 11/30/20 11/30/20 Range/Units 17:04 00:50 06:29 POC Glucose (mg/dL) 103 H 133 H 143 H (75-99) mg/dL 11/30/20 Range/Units 11:03 POC Glucose (mg/dL) 113 H (75-99) mg/dL Microbiology - Last 24 Hours (Table) 11/26/20 22:50 Blood Culture - Preliminary Blood No Growth after 72 hours 11/26/20 23:22 Urine Culture - Final Urine,Voided Proteus mirabilis
--- NOTE | 2020-11-30 15:52 | PN ---
PROGRESS NOTE DATE OF SERVICE: 11/30/2020 This 60-year-old gentleman was admitted with acute UTI is being closely monitored. The patient also had a PEG tube feeds also and abdominal x-rays noted large fecal bolus in the rectum indicating fecal impaction. Surgery is following the patient also. The patient also had chronic left femoral neck fracture also. PAST MEDICAL HISTORY: Reviewed. REVIEW OF SYSTEMS: Could not be taken. CURRENT MEDICATIONS: Current medications are reviewed and include Tylenol, Ventolin, Symmetrel, Lioresal, Tegretol, Rocephin, and other medications are reviewed. PHYSICAL EXAMINATION: Patient is stuporous. Pulse 101, blood pressure 122/82, respiration 20, temperature 97.7, pulse ox 100% on 2 L. HEENT: Conjunctivae normal. NECK: No jugular venous distention. CARDIOVASCULAR: S1, S2 muffled. RESPIRATORY: Breath sounds diminished at the bases. A few scattered rhonchi and crackles. ABDOMEN: Soft, nontender. PEG tube. LEGS: No edema, no swelling. NERVOUS SYSTEM: Diffusely weak. LAB INVESTIGATIONS: Lab investigations are glucose 113, WBC 7.5, hemoglobin 11.1, sodium 132, potassium 5.4. ASSESSMENT: 1. Acute urinary tract infection with sepsis possibly present on admission with Proteus mirabilis. 2. Ileus. 3. Fecal impaction. 4. Change in mental status, acute metabolic encephalopathy, acute on chronic. 5. Leukocytosis. 6. Multiple sclerosis with cognitive impairment and contractures. 7. Mild protein calorie malnutrition. 8. Hyponatremia. 9. Hyperkalemia. 10.Anemia, normocytic anemia of chronic disease. 11.History of deep vein thrombosis. 12.Hypertension. 13.History of pneumonia. 14.Status post PEG tube placement. 15.History of respiratory failure. 16.ESBL history. 17.History of methicillin-resistant Staphylococcus aureus. 18.History of tonsillectomy. 19.History of depression. 20.FULL CODE. RECOMMENDATIONS AND DISCUSSION: I recommend to continue current medications, continue symptomatic treatment. Continue with antibiotics at this time. The Proteus mirabilis is sensitive to ceftriaxone. Continue with the measures by Surgery for fecal impaction. Otherwise, prognosis guarded because of multiple complex medical issues. I also recommend repeat labs. Further recommendations to follow. MMODL / IJN: [id number] / [facility]
[2020-11-30 16:55] LABS: Glucose,Whole Blood 99 mg/dL (75-99)
--- NOTE | 2020-11-30 17:21 | CDI ---
Documentation Clarification Form Date: 11/30/2020 04:59:41 PM From: Martha Liu RN, CCDS Admit Date: 11/27/2020 12:31:00 AM Patient Name: Chris Marvin Visit Number: [id number] ATTENTION: The Clinical Documentation Specialists (CDI) and [facility] Coding Staff appreciate your assistance in clarifying documentation. Please respond to the clarification below the line at the bottom and electronically sign. The CDI & [facility] Coding staff will review the response and follow-up if needed. Please note: Queries are made part of the Legal Health Record. If you have any questions, please contact the author of this message via ITS. Dr. Dara Crowe A diagnosis of UTI has been documented in the 11/30 H&P and subsequent progress notes in a patient with a chronic Stein catheter. History/Risk Factors: MS, Neurogenic bladder, Sepsis, UTI, ESBL, MRSA Clinical Indicators: 11/26 ED Note: ".He also has had some slight urine draining around his Stein catheter." 11/27 H&P: "pt. has dysphagia/NPO with peg tube, contractures, trigeminal neuralgia, dysarthria/anarthria/neurogenic bladder with IDC-UTIs/sepsis," 11/26 Urinalysis: Turbid, PH 8.5, +4 Protein, moderate Leukocyte Esterase, WBC 16, Triple phos crystals many, many bacteria, occasional mucus 11/26 Urine culture: Proteus mirabilis 11/26-11/30 Lab results: WBC 7.4/10.33/7.5 Treatment: 11/29 Ceftriaxone 1gm IVPB q 24 hrs. 11/26 0.9% NS 500 cc IVF Bolus In your professional opinion, can you please clarify the etiology of the UTI, if known? Stein catheter related UTI UTI not related to catheter Other condition, please specify Unable to determine If an infective organism is present, please specify cause and effect relationship if applicable. (Last Revision: December 2017) Stein catheter related UTI MTDD
[2020-12-01 00:13] LABS: Glucose,Whole Blood 96 mg/dL (75-99)
[2020-12-01 06:12] LABS: Glucose,Whole Blood 132 mg/dL (75-99)
[2020-12-01] MEDS: BACLOFEN 10 MG TAB PEG/G-TUBE SCH ×3 (09:04→21:10)
[2020-12-01] MEDS: OXYBUTYNIN CHLORIDE 5 MG TAB PEG/G-TUBE SCH ×3 (09:04→21:10)
[2020-12-01] MEDS: PANTOPRAZOLE 40 MG/10 ML VIAL IVP SCH (09:10)
[2020-12-01] MEDS: carBAMazepine 200 MG TAB PEG/G-TUBE SCH ×2 (09:17→22:20)
[2020-12-01] MEDS: METOPROLOL TARTRATE 25 MG TAB PO SCH ×2 (09:17→21:10)
[2020-12-01] MEDS: DEXTROSE 5% IN WATER 1,000 ML IV SCH (09:26)
[2020-12-01] MEDS: LACOSAMIDE IV 150 MG in SODIUM CHLORIDE 0.9% 50 ML IVPB SCH ×2 (11:07→22:20)
[2020-12-01 11:29] LABS: Glucose,Whole Blood 123 mg/dL (75-99)
--- NOTE | 2020-12-01 13:20 | P.PN ---
<Deepa Oneill - Last Filed: 12/01/20 13:16> Subjective Progress Note Date: 12/01/20 CHIEF COMPLAINT: Fecal impaction HISTORY OF PRESENT ILLNESS: Surgical service is following for fecal impaction. Patient is nonverbal. Patient did have a small to moderate size bowel movement yesterday after enema, lactulose and milk of mag. He is tolerating his tube feedings. Per nurse no vomiting noted. He is lying in bed comfortably. Afebrile. Labs for today are pending PHYSICAL EXAM: VITAL SIGNS: Reviewed GENERAL: Well-developed in no acute distress. HEENT: No sclera icterus. Extraocular movements grossly intact. Moist buccal mucosa. Head is atraumatic, normocephalic. Hears conversational speech. No nasal aldo inage. NECK: Supple without lymphadenopathy. CHEST: Non-labored respirations and equal bilateral excursions. CARDIOVASCULAR: Palpable 2+ radial pulses. ABDOMEN: Soft. Nondistended. Nontender. MUSCULOSKELETAL: No clubbing or cyanosis. NEUROLOGIC: Nonverbal lying in bed comfortably SKIN: Well perfused. Good skin turgor. ASSESSMENT: 1. Fecal impaction 2. Hyperkalemia status post Kayexalate 3. History of multiple sclerosis 4. Cognitive impairment 5. History of seizure disorder 6. UTI PLAN: -We'll check abdominal x-ray today and tomorrow for follow-up on fecal impaction -Continue tube feedings -Continue supportive care -Continue antibiotics for UTI per medicine service Physician Foundry Technician note has been reviewed by physician. Signing provider agrees with the documented findings, assessment, and plan of care. Objective - Vital Signs Vital signs: Vital Signs Temp 99.0 F 12/01/20 07:53 Pulse 94 12/01/20 07:53 Resp 22 12/01/20 07:53 BP 90/49 12/01/20 07:53 Pulse Ox 99 12/01/20 07:53 Intake & Output 11/30/20 12/01/20 12/01/20 18:59 06:59 18:59 Intake Total 200 299 Output Total 1600 1100 Balance -1400 -801 Weight 77.111 kg 72.5 kg Intake: Intake, IV Titration 200 Amount Lacosamide IV 150 mg In 100 Sodium Chloride 0.9% 50 ml @ 100 mls/hr IVPB BID [facility] Rx#:[id number] cefTRIAXone 1 gm In 100 Sodium Chloride 0.9% 50 ml @ 100 mls/hr IVPB Q24HR [facility] Rx#:[id number] Tube Feeding 299 Output: Urine 1600 1100 Uretheral (Stein) 1600 Other: Voiding Method Indwelling Catheter Indwelling Catheter Indwelling Catheter # Bowel Movements 2 - Labs CBC & Chem 7: 11/29/20 06:05 11/29/20 08:58 Labs: Abnormal Lab Results - Last 24 Hours (Table) 12/01/20 12/01/20 Range/Units 05:52 11:23 POC Glucose (mg/dL) 132 H 123 H (75-99) mg/dL Microbiology - Last 24 Hours (Table) 11/26/20 22:50 Blood Culture - Preliminary Blood No Growth after 96 hours <Lashonda Brody - Last Filed: 12/01/20 18:54> Subjective xray reviewed. Still has impaction. May need more enemas. He is on tube feeds. Recommend CT of the abdomen and pelvis for better elucidation of intra-abdominal pathology Objective - Vital Signs Vital signs: Vital Signs Temp 98.3 F 12/01/20 14:00 Pulse 58 L 12/01/20 14:00 Resp 22 12/01/20 14:00 BP 120/78 12/01/20 14:00 Pulse Ox 91 L 12/01/20 14:00 Intake & Output 11/30/20 12/01/20 12/01/20 18:59 06:59 18:59 Intake Total 200 299 240 Output Total 1600 1100 1200 Balance -1400 -801 -960 Weight 77.111 kg 72.5 kg Intake: Intake, IV Titration 200 Amount Lacosamide IV 150 mg In 100 Sodium Chloride 0.9% 50 ml @ 100 mls/hr IVPB BID [facility] Rx#:[id number] cefTRIAXone 1 gm In 100 Sodium Chloride 0.9% 50 ml @ 100 mls/hr IVPB Q24HR [facility] Rx#:[id number] Oral 0 Tube Feeding 299 240 Output: Urine 1600 1100 1200 Uretheral (Stein) 1600 Other: Voiding Method Indwelling Catheter Indwelling Catheter Indwelling Catheter # Bowel Movements 2 - Labs CBC & Chem 7: 12/01/20 08:10 11/29/20 08:58 Labs: Abnormal Lab Results - Last 24 Hours (Table) 12/01/20 12/01/2021 Range/Units 05:52 08:10 11:23 RBC 3.71 L (4.40-5.60) X 10*6/uL Hgb 9.3 L (13.0-17.0) g/dL Hct 31.3 L (39.6-50.0) % MCH 25.1 L (27.0-32.0) pg MCHC 29.7 L (32.0-37.0) g/dL RDW 21.0 H (11.5-14.5) % Lymphocytes # 0.86 L (0.90-5.00) X 10*3/uL Eosinophils # 0.47 H (0.04-0.35) X 10*3/uL POC Glucose (mg/dL) 132 H 123 H (75-99) mg/dL 12/01/20 Range/Units 17:01 RBC (4.40-5.60) X 10*6/uL Hgb (13.0-17.0) g/dL Hct (39.6-50.0) % MCH (27.0-32.0) pg MCHC (32.0-37.0) g/dL RDW (11.5-14.5) % Lymphocytes # (0.90-5.00) X 10*3/uL Eosinophils # (0.04-0.35) X 10*3/uL POC Glucose (mg/dL) 111 H (75-99) mg/dL Microbiology - Last 24 Hours (Table) 11/26/20 22:50 Blood Culture - Preliminary Blood No Growth after 96 hours
--- NOTE | 2020-12-01 14:07 | XR ---
EXAMINATION TYPE: XR abdomen 2V DATE OF EXAM: 12/01/2020 CLINICAL DATA: 60-year-old male fecal impaction, pain, PHH COMPARISON: 11/30/2020 FINDINGS: There is new patchy opacity at the right base. Stool distends the rectum up to 6.9 cm wide. Mild to moderate stool is present elsewhere in the left side of the colon. Chronic displaced fracture deformity of the left femoral neck. Degenerative change of the right hip is unchanged. Severe osteopenia. Multiple pelvic phlebolith. A PEG tube is present. IMPRESSION: 1. Stool distending the rectum up to 6.9 cm wide may reflect fecal impaction. 2. Brqp-ng-kapxhvlo stool elsewhere in the left side of the colon. 3. New patchy atelectasis or infiltrate/pneumonia at the right base.
--- NOTE | 2020-12-01 16:30 | PN ---
PROGRESS NOTE DATE OF SERVICE: 12/01/2020 This 60-year-old gentleman who was admitted with UTI, infection and sepsis had Proteus mirabilis grown from the culture. Patient is on broad spectrum IV antibiotics. The abdominal x-ray was done today per surgery recommendations. Stool distention was also noted with fecal impaction. No chest pain. No palpitation. PHYSICAL EXAMINATION: Patient continues to be confused. Pulse 58, blood pressure 120/70, respiration 22, temperature 98.3, pulse ox 91% on 2 L. HEENT: Conjunctivae normal. NECK: No jugular venous distention. CARDIOVASCULAR SYSTEM: S1, S2 muffled. RESPIRATORY SYSTEM: Breath sounds diminished at the bases. No rhonchi. No crackles. ABDOMEN: Soft. PEG tube in situ. NERVOUS SYSTEM: Diffusely weak. LABS: Glucose 123. WBC 7.4. Other labs are noted. ASSESSMENT: 1. Acute urinary tract infection with sepsis, possibly present on admission, with Proteus mirabilis related to Stein catheter. 2. Ileus. 3. Fecal impaction. 4. Change in mental status, acute on chronic metabolic encephalopathy. 5. Leukocytosis. 6. Multiple sclerosis with cognitive impairment and contractures. 7. Mild protein-calorie malnutrition. 8. Tube feeds. 9. Hyponatremia. 10.Hyperkalemia. 11.Anemia, normocytic anemia of chronic disease. 12.History of deep vein thrombosis. 13.Hypertension. 14.History of pneumonia. 15.Status post PEG tube placement. 16.History of respiratory failure. 17.History of extended-spectrum beta-lactamase. 18.History of methicillin-resistant Staphylococcus aeruginosa. 19.History of tonsillectomy. 20.History of depression. 21.FULL CODE. RECOMMENDATIONS AND DISCUSSION: I recommend to continue current medications, continue with the monitoring, symptomatic treatment. I would recommend repeat labs. Potassium is elevated. Otherwise, closely monitor. Guarded prognosis. Further recommendations to follow. MMODL / IJN: [id number] /
[2020-12-01 17:03] LABS: Glucose,Whole Blood 111 mg/dL (75-99)
[2020-12-01 17:32] LABS: Basophils # (A) 0.03 X 10*3/uL (0.00-0.10); Basophils % (A) 0.5 %; Eosinophils # (A) 0.47 X 10*3/uL (0.04-0.35); Eosinophils % (A) 7.2 %; HCT 31.3 % (39.6-50.0); HGB 9.3 g/dL (13.0-17.0); Lymphocytes # (A) 0.86 X 10*3/uL (0.90-5.00); Lymphocytes % (A) 13.1 %; MCH 25.1 pg (27.0-32.0); MCHC 29.7 g/dL (32.0-37.0); MCV 84.4 fL (80.0-97.0); Mean Platelet Volume 11.6 fL (9.5-12.2); Monocytes # (A) 0.86 X 10*3/uL (0.20-1.00); Monocytes % (A) 13.1 %; Neutrophils # (A) 4.28 X 10*3/uL (1.80-7.70); Neutrophils % (A) 65.5 %; Platelet Count 321 X 10*3/uL (140-440); RBC 3.71 X 10*6/uL (4.40-5.60); WBC 6.54 X 10*3/uL (4.50-10.00)
--- NOTE | 2020-12-01 22:23 | CT ---
EXAMINATION TYPE: CT abdomen pelvis w con DATE OF EXAM: 12/01/2020 COMPARISON: 04/23/2020 HISTORY: abdominal pain CT DLP: 1176.3 mGycm Automated exposure control for dose reduction was used. CONTRAST: Performed with IV Contrast, patient injected with 100 mL of Isovue 300. Images obtained from the diaphragm to the floor the pelvis with IV contrast. FINDINGS: There is some infiltrate and atelectasis at both lung bases. Heart size is normal. There is no perica rdial effusion. There is coronary artery calcification. Liver spleen stomach pancreas appear intact. Bile ducts are not dilated. Gallbladder appears normal. There is no adrenal mass. Kidneys show satisfactory contrast opacification. There is no hydronephrosi s. Delayed images show contrast excretion in both kidneys. Ureters are not dilated. There is no retro peritoneal adenopathy. Contrast injection in the inferior vena cava. Contrast opacifies pelvic veins and the left iliac vein. There is no retroperitoneal adenopathy. There is Stein catheter in the urinary bladder. There is no i nguinal hernia. There is significant deformity of the left hip with old ununited left femoral neck fr acture. There is retained fecal material in the rectum that measures 6.5 cm. There is small amount of fluid in the paracolic gutters. There is no free air. I see no sign of a small bowel obstruction. Th oracic and lumbar vertebra appear intact. There is no significant compression deformity. I see no pel oc fracture. IMPRESSION: There is some infiltrate and atelectasis at both lung bases that is increased compared to old exam. Rectal fecal impaction. Atherosclerotic vascular disease. Small amount of fluid in the paracolic gutters of uncertain significance appears new compared to old exam. 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 Fecal impaction not changed.
[2020-12-01 23:50] LABS: Glucose,Whole Blood 105 mg/dL (75-99)
[2020-12-02] MEDS: DEXTROSE 5% IN WATER 1,000 ML IV SCH ×2 (00:05→23:30)
[2020-12-02 00:12] LABS: African American GFR (CKD) 111.7 (60.0-200.0); Anion Gap 15.4 mmol/L (4.00-12.00); BUN/Creat Ratio 16.25 Ratio (12.00-20.00); Calcium 8.4 mg/dL (8.7-10.3); Carbon Dioxide 18.6 mmol/L (21.6-31.8); Non-African American GFR(CKD) 96.4 (60.0-200.0); Potassium 3.7 mmol/L (3.5-5.5)
[2020-12-02] MEDS: BACLOFEN 10 MG TAB PEG/G-TUBE SCH ×3 (05:24→23:28)
[2020-12-02] MEDS: OXYBUTYNIN CHLORIDE 5 MG TAB PEG/G-TUBE SCH ×3 (05:24→23:29)
[2020-12-02 05:48] LABS: Glucose,Whole Blood 119 mg/dL (75-99)
--- NOTE | 2020-12-02 07:27 | XR ---
EXAMINATION TYPE: XR abdomen 2V DATE OF EXAM: 12/02/2020 CLINICAL HISTORY: Fecal impaction. TECHNIQUE: Portable supine and upright views of the abdomen are obtained. COMPARISON: CT abdomen and pelvis from one day earlier and older studies. FINDINGS: Overlying PEG tube redemonstrated. Gas seen in nondistended stomach on current study. Some paucity of small bowel gas. Some increased prominence of gas-filled colonic loops along the periphery . Increased fecal debris in the right colon on current study. Persistent fecal debris left colon on c urrent study. Persistent gas distended rectum shows some suspected interval improvement in amount of fecal material. Stein catheter in place. Scattered bilateral pelvic phleboliths. Chronic impacted fracture deformity left proximal femur redemonstrated. Stable right basilar linear scarring. No free air. IMPRESSION: Overall nonspecific but felt to be nonobstructive bowel gas pattern remains present. Sta ble distended rectum. Perhaps some interval improvement in degree of rectal fecal material from one d ay earlier, correlate clinically.
--- NOTE | 2020-12-02 08:12 | P.PN ---
Subjective Progress Note Date: 12/02/20 CT of the abdomen and pelvis reviewed. Large fecal impaction present causing large bowel obstruction. We'll proceed with exam under anesthesia, sigmoidoscopy with fecal disimpaction. Objective - Vital Signs Vital signs: Vital Signs Temp 98.0 F 12/02/20 07:33 Pulse 90 12/02/20 07:33 Resp 20 12/02/20 07:33 BP 109/72 12/02/20 07:33 Pulse Ox 98 12/02/20 07:49 Intake & Output 12/01/20 12/02/20 12/02/20 18:59 06:59 18:59 Intake Total 240 570 Output Total 1200 1250 Balance -960 -680 Weight 73.5 kg Intake: Oral 0 Tube Feeding 240 570 Output: Urine 1200 1250 Uretheral (Stein) 450 Other: Voiding Method Indwelling Catheter Indwelling Catheter - Labs CBC & Chem 7: 12/01/20 08:10 12/01/20 08:10 Labs: Abnormal Lab Results - Last 24 Hours (Table) 12/01/20 12/01/20 12/01/20 Range/Units 08:10 08:10 11:23 RBC 3.71 L (4.40-5.60) X 10*6/uL Hgb 9.3 L (13.0-17.0) g/dL Hct 31.3 L (39.6-50.0) % MCH 25.1 L (27.0-32.0) pg MCHC 29.7 L (32.0-37.0) g/dL RDW 21.0 H (11.5-14.5) % Lymphocytes # 0.86 L (0.90-5.00) X 10*3/uL Eosinophils # 0.47 H (0.04-0.35) X 10*3/uL Carbon Dioxide 18.6 L (21.6-31.8) mmol/L Anion Gap 15.40 H (4.00-12.00) mmol/L Glucose 125 H (70-110) mg/dL POC Glucose (mg/dL) 123 H (75-99) mg/dL Calcium 8.4 L (8.7-10.3) mg/dL 12/01/20 12/01/20 12/02/20 Range/Units 17:01 23:49 05:47 RBC (4.40-5.60) X 10*6/uL Hgb (13.0-17.0) g/dL Hct (39.6-50.0) % MCH (27.0-32.0) pg MCHC (32.0-37.0) g/dL RDW (11.5-14.5) % Lymphocytes # (0.90-5.00) X 10*3/uL Eosinophils # (0.04-0.35) X 10*3/uL Carbon Dioxide (21.6-31.8) mmol/L Anion Gap (4.00-12.00) mmol/L Glucose (70-110) mg/dL POC Glucose (mg/dL) 111 H 105 H 119 H (75-99) mg/dL Calcium (8.7-10.3) mg/dL Microbiology - Last 24 Hours (Table) 11/26/20 22:50 Blood Culture - Preliminary Blood No Growth after 120 hours
[2020-12-02] MEDS: PANTOPRAZOLE 40 MG/10 ML VIAL IVP SCH (08:25)
[2020-12-02] MEDS: METOPROLOL TARTRATE 25 MG TAB PO SCH ×2 (08:25→23:28)
[2020-12-02 09:10] LABS: Basophils # (A) 0.03 X 10*3/uL (0.00-0.10); Basophils % (A) 0.5 %; Eosinophils # (A) 0.47 X 10*3/uL (0.04-0.35); Eosinophils % (A) 7.7 %; HCT 29.4 % (39.6-50.0); Lymphocytes # (A) 1.25 X 10*3/uL (0.90-5.00); Lymphocytes % (A) 20.6 %; MCH 25.6 pg (27.0-32.0); MCHC 30.6 g/dL (32.0-37.0); MCV 83.8 fL (80.0-97.0); Mean Platelet Volume 11.5 fL (9.5-12.2); Monocytes # (A) 0.75 X 10*3/uL (0.20-1.00); Monocytes % (A) 12.3 %; Neutrophils # (A) 3.55 X 10*3/uL (1.80-7.70); Neutrophils % (A) 58.4 %; Platelet Count 338 X 10*3/uL (140-440); RBC 3.51 X 10*6/uL (4.40-5.60); RDW 20.4 % (11.5-14.5); WBC 6.08 X 10*3/uL (4.50-10.00)
[2020-12-02] MEDS ORDERED: PROPOFOL 10 MG/ML 20 ML VIAL IV ONE (09:46)
[2020-12-02] MEDS ORDERED: IV FLUID CONTINUATION 1,000 ML IV ONE (09:52)
[2020-12-02 10:01] LABS: African American GFR (CKD) 125.8 (60.0-200.0); Anion Gap 7.1 mmol/L (4.00-12.00); BUN/Creat Ratio 18.33 Ratio (12.00-20.00); Carbon Dioxide 24.9 mmol/L (21.6-31.8); Non-African American GFR(CKD) 108.5 (60.0-200.0); Potassium 3.6 mmol/L (3.5-5.5)
[2020-12-02] MEDS ORDERED: POLYETHYLENE GLYCOL LYTES SOLN 4,000 ML SOLN.RECON PO ONE (10:15)
[2020-12-02] MEDS: carBAMazepine 200 MG TAB PEG/G-TUBE SCH ×2 (10:27→23:28)
--- NOTE | 2020-12-02 10:29 | P.PCN ---
Date of Procedure: 12/02/20 Description of Procedure: PREOPERATIVE DIAGNOSIS: Fecal impaction Multiple sclerosis with catatonia Urinary tract infection Chronic constipation Gastrostomy tube status POSTOPERATIVE DIAGNOSIS: Fecal impaction Multiple sclerosis with catatonia Urinary tract infection Chronic constipation Gastrostomy tube status OPERATION: Exam under anesthesia with fecal disimpaction SURGEON: Lashonda Brody MD. ANESTHESIA: MAC. INDICATIONS: The patient is a 60-year-old male with multiple sclerosis, contractures, catatonia who presents with persistent fecal impaction despite enemas. Benefits and risks were described and informed consent was obtained. DESCRIPTION OF PROCEDURE: The patient had been brought into the operating room and laid in the left lateral decubitus position. After adequate intravenous sedation, the rectum was examined with 2% lidocaine jelly. With moderate lubrication, the rectum was examined with the rectal tone within normal limits. No solid stool was found within the lower rectum. Fecal impaction of soft stool was identified along the sigmoid colon. Moderate stool was evacuated from the distal sigmoid colon to rectum. Abdominal pressure was used to deliver any remnant impaction distally. The patient had tolerated the procedure well. FINDINGS: High riding fecal impaction of the distal sigmoid proximal rectum RECOMMENDATIONS: 1. I personally contacted the patient's power of trademark attorney, his sister, Dot Marvin. She confirms no previous colonoscopy. 2. Recommend bowel prep to address underlying constipation 3. Recommend colonoscopy which may be done as outpatient
[2020-12-02] MEDS: LACOSAMIDE IV 150 MG in SODIUM CHLORIDE 0.9% 50 ML IVPB SCH ×2 (10:33→23:28)
[2020-12-02 12:03] LABS: Glucose,Whole Blood 101 mg/dL (75-99)
--- NOTE | 2020-12-02 16:04 | P.PN ---
Subjective Progress Note Date: 12/02/20 This is a 60-year-old male who was recently admitted with acute urinary tract infection and sepsis with Proteus mirabilis growing in the culture and is maintained on IV antibiotics and will continue at this time. Surgery following as abdominal x-ray showed continued fecal impaction and surgery performed fecal disimpaction today. Patient continues to be confused and is currently sleeping although arousable. Patient resides at [facility] and case management and social work following as patient will be returning there. Objective - Vital Signs Vital signs: Vital Signs Temp 98.0 F 12/02/20 07:33 Pulse 90 12/02/20 07:33 Resp 20 12/02/20 07:33 BP 109/72 12/02/20 07:33 Pulse Ox 98 12/02/20 07:49 Intake & Output 12/01/20 12/02/20 12/02/20 18:59 06:59 18:59 Intake Total 240 570 100 Output Total 1200 1250 Balance -960 -680 100 Weight 73.5 kg Intake: IV 100 Oral 0 Tube Feeding 240 570 Output: Urine 1200 1250 Uretheral (Stein) 450 Other: Voiding Method Indwelling Catheter Indwelling Catheter Indwelling Catheter - Exam Gen: This is a 60-year-old male sitting up in the bed asleep although arousable, confused. Temp is 98F, pulse is 90, respirations are 20, blood pressure is 109/72, oxygen saturation is 98% on 2 L via nasal cannula. HEENT: Head is atraumatic, normocephalic. Pupils equal, round. Sclerae is anicteric. NECK: Supple. No JVD. No lymphadenopathy. No thyromegaly. LUNGS: Diminished breath sounds bilaterally with no wheezing or rhonchi noted. No intercostal retractions. HEART: Regular rate and rhythm. No murmur. ABDOMEN: Soft. Bowel sounds are present. No masses. No tenderness. PEG tube noted EXTREMITIES: No pedal edema. No calf tenderness. NEUROLOGICAL: Patient is asleep although arousable, confused. Diffusely weak - Labs CBC & Chem 7: 12/02/20 05:41 12/02/20 05:41 Labs: Abnormal Lab Results - Last 24 Hours (Table) 12/01/20 12/01/20 12/01/20 Range/Units 08:10 08:10 17:01 RBC 3.71 L (4.40-5.60) X 10*6/uL Hgb 9.3 L (13.0-17.0) g/dL Hct 31.3 L (39.6-50.0) % MCH 25.1 L (27.0-32.0) pg MCHC 29.7 L (32.0-37.0) g/dL RDW 21.0 H (11.5-14.5) % Lymphocytes # 0.86 L (0.90-5.00) X 10*3/uL Eosinophils # 0.47 H (0.04-0.35) X 10*3/uL Carbon Dioxide 18.6 L (21.6-31.8) mmol/L Anion Gap 15.40 H (4.00-12.00) mmol/L Glucose 125 H (70-110) mg/dL POC Glucose (mg/dL) 111 H (75-99) mg/dL Calcium 8.4 L (8.7-10.3) mg/dL 12/01/20 12/02/20 12/02/20 Range/Units 23:49 05:41 05:41 RBC 3.51 L (4.40-5.60) X 10*6/uL Hgb 9.0 L (13.0-17.0) g/dL Hct 29.4 L (39.6-50.0) % MCH 25.6 L (27.0-32.0) pg MCHC 30.6 L (32.0-37.0) g/dL RDW 20.4 H (11.5-14.5) % Lymphocytes # (0.90-5.00) X 10*3/uL Eosinophils # 0.47 H (0.04-0.35) X 10*3/uL Carbon Dioxide (21.6-31.8) mmol/L Anion Gap (4.00-12.00) mmol/L Glucose (70-110) mg/dL POC Glucose (mg/dL) 105 H (75-99) mg/dL Calcium 8.0 L (8.7-10.3) mg/dL 12/02/20 12/02/20 Range/Units 05:47 12:00 RBC (4.40-5.60) X 10*6/uL Hgb (13.0-17.0) g/dL Hct (39.6-50.0) % MCH (27.0-32.0) pg MCHC (32.0-37.0) g/dL RDW (11.5-14.5) % Lymphocytes # (0.90-5.00) X 10*3/uL Eosinophils # (0.04-0.35) X 10*3/uL Carbon Dioxide (21.6-31.8) mmol/L Anion Gap (4.00-12.00) mmol/L Glucose (70-110) mg/dL POC Glucose (mg/dL) 119 H 101 H (75-99) mg/dL Calcium (8.7-10.3) mg/dL Microbiology - Last 24 Hours (Table) 11/26/20 22:50 Blood Culture - Preliminary Blood No Growth after 120 hours Assessment and Plan Assessment: Acute urinary tract infection with sepsis, possibly present on admission with Proteus mirabilis related to Stein catheter Ileus Fecal impaction Status post disimpaction with surgery services Change in mental status, acute on chronic metabolic encephalopathy Leukocytosis Also sclerosis with cognitive impairment and contractures mild protein calorie malnutrition Hyponatremia Hyperkalemia Anemia, normocytic anemia of chronic disease history of deep vein thrombosis hypertension History of pneumonia status post PEG tube placement History of respiratory failure History of extended spectrum beta-lactamase History of MRSA history of tonsillectomy History of depression Full code Recommendations and discussion: Comment continue with current medications, management, and symptomatic treatment. Potassium was repeated today and is 3.6. Hemoglobin is stable at 9.0. White blood count is 6.08. Current creatinine is 0.6 with a sodium of 138. Patient underwent fecal disimpaction and was found to have high riding fecal impaction of the distal sigmoid proximal rectum and surgery recommending a bowel prep and outpatient colonoscopy. Will continue to monitor closely. Due to multiple complex medical issues, prognosis is guarded. Further recommendations to follow. Possible discharge in 24 hours. Social work is following as patient will be returning to [facility] where he resides.
--- NOTE | 2020-12-02 16:06 | P.PN ---
Progress Note - Text Progress Note Date: 12/02/20 Patient reevaluated this afternoon. His sister however caries at bedside. Patient has not had prior colonoscopy. Currently undergoing bowel prep for complete bowel glans. Will benefit from colonoscopy which may be done as outpatient. Continue tube feeds.
[2020-12-02 17:08] LABS: Glucose,Whole Blood 108 mg/dL (75-99)
[2020-12-03] MEDS: DEXTROSE 5% IN WATER 1,000 ML IV SCH ×2 (04:30→13:21)
[2020-12-03] MEDS: BACLOFEN 10 MG TAB PEG/G-TUBE SCH ×2 (06:02→13:20)
[2020-12-03] MEDS: OXYBUTYNIN CHLORIDE 5 MG TAB PEG/G-TUBE SCH ×2 (06:03→13:20)
[2020-12-03 06:18] LABS: Glucose,Whole Blood 109 mg/dL (75-99)
[2020-12-03 07:08] LABS: African American GFR (CKD) >90 (>60 ml/min/1.73 sqM); Anion Gap 9 mmol/L; Blood Urea Nitrogen 13 mg/dL (9-20); Calcium 8.3 mg/dL (8.4-10.2); Carbon Dioxide 24 mmol/L (22-30); Chloride 107 mmol/L (98-107); Glucose 106 mg/dL (74-99); Non-African American GFR(CKD) >90 (>60 ml/min/1.73 sqM); Potassium 3.9 mmol/L (3.5-5.1); Sodium 140 mmol/L (137-145)
[2020-12-03 08:59] LABS: Basophils # (A) 0.05 X 10*3/uL (0.00-0.10); Basophils % (A) 0.8 %; Eosinophils % (A) 8.1 %; HCT 29.7 % (39.6-50.0); Lymphocytes # (A) 1.33 X 10*3/uL (0.90-5.00); Lymphocytes % (A) 21.4 %; MCH 25.3 pg (27.0-32.0); MCHC 30.3 g/dL (32.0-37.0); MCV 83.4 fL (80.0-97.0); Mean Platelet Volume 11.4 fL (9.5-12.2); Monocytes # (A) 0.63 X 10*3/uL (0.20-1.00); Monocytes % (A) 10.1 %; Neutrophils # (A) 3.67 X 10*3/uL (1.80-7.70); Neutrophils % (A) 59.1 %; Platelet Count 377 X 10*3/uL (140-440); RBC 3.56 X 10*6/uL (4.40-5.60); RDW 20.2 % (11.5-14.5); WBC 6.21 X 10*3/uL (4.50-10.00)
[2020-12-03] MEDS: PANTOPRAZOLE 40 MG/10 ML VIAL IVP SCH (09:06)
[2020-12-03] MEDS: carBAMazepine 200 MG TAB PEG/G-TUBE SCH (09:07)
[2020-12-03] MEDS: METOPROLOL TARTRATE 25 MG TAB PO SCH (09:07)
[2020-12-03] MEDS: LACOSAMIDE IV 150 MG in SODIUM CHLORIDE 0.9% 50 ML IVPB SCH ×2 (10:44→13:20)
[2020-12-03 11:46] LABS: Glucose,Whole Blood 116 mg/dL (75-99)
--- NOTE | 2020-12-03 13:51 | P.PN ---
Subjective Progress Note Date: 12/03/20 Patient seen and evaluated. He had moderate results with multiple bowel movements following bowel prep. He is more comfortable. Tolerating tube feeds at 70 mL/h. Overall, patient stable for discharge from a surgical standpoint. Follow-up as outpatient for outpatient colonoscopy. Objective - Vital Signs Vital signs: Vital Signs Temp 98.5 F 12/03/20 07:43 Pulse 84 12/03/20 07:43 Resp 20 12/03/20 08:30 BP 120/78 12/03/20 07:43 Pulse Ox 99 12/03/20 07:43 Intake & Output 12/02/20 12/03/20 12/03/20 18:59 06:59 18:59 Intake Total 100 100 Output Total 600 1200 Balance -500 -1100 Weight 72 kg Intake: IV 100 Oral 100 Output: Urine 600 1200 Uretheral (Stein) 600 Other: Voiding Method Indwelling Catheter Indwelling Catheter Indwelling Catheter - Labs CBC & Chem 7: 12/03/20 05:42 12/03/20 05:42 Labs: Abnormal Lab Results - Last 24 Hours (Table) 12/02/20 12/03/20 12/03/20 Range/Units 17:03 05:42 05:42 RBC 3.56 L (4.40-5.60) X 10*6/uL Hgb 9.0 L (13.0-17.0) g/dL Hct 29.7 L (39.6-50.0) % MCH 25.3 L (27.0-32.0) pg MCHC 30.3 L (32.0-37.0) g/dL RDW 20.2 H (11.5-14.5) % Eosinophils # 0.50 H (0.04-0.35) X 10*3/uL Creatinine 0.56 L (0.66-1.25) mg/dL Glucose 106 H (74-99) mg/dL POC Glucose (mg/dL) 108 H (75-99) mg/dL Calcium 8.3 L (8.4-10.2) mg/dL 12/03/20 12/03/20 Range/Units 06:05 11:44 RBC (4.40-5.60) X 10*6/uL Hgb (13.0-17.0) g/dL Hct (39.6-50.0) % MCH (27.0-32.0) pg MCHC (32.0-37.0) g/dL RDW (11.5-14.5) % Eosinophils # (0.04-0.35) X 10*3/uL Creatinine (0.66-1.25) mg/dL Glucose (74-99) mg/dL POC Glucose (mg/dL) 109 H 116 H (75-99) mg/dL Calcium (8.4-10.2) mg/dL Microbiology - Last 24 Hours (Table) 11/26/20 22:50 Blood Culture - Final Blood No Growth after 144 hours
[2020-12-03 14:00] VITALS: BP 109/71; PULSE 77; RESP 16; TEMP 98.9
--- NOTE | 2020-12-03 14:00 | P.DS ---
Providers Date of admission: 11/27/20 00:31 Expected date of discharge: 12/03/20 Attending physician: Dara Crowe Consults: 11/27/20 12:53 Consult Physician Urgent Consulting Provider: Lashonda Brody Consult Reason/Comments: Large bowel ileus Do you want consulting provider notified?: Yes Primary care physician: Matteo Hernandez [facility] Course: Final diagnosis Acute urinary tract infection with sepsis, possibly present on admission with Proteus mirabilis related to Stein catheter Ileus Fecal impaction Status post disimpaction with surgery services Change in mental status, acute on chronic metabolic encephalopathy Leukocytosis Also sclerosis with cognitive impairment and contractures mild protein calorie malnutrition Hyponatremia Hyperkalemia Anemia, normocytic anemia of chronic disease history of deep vein thrombosis hypertension History of pneumonia status post PEG tube placement History of respiratory failure History of extended spectrum beta-lactamase History of MRSA history of tonsillectomy History of depression Full code Discharge disposition Patient is being discharged in a stable condition with guarded prognosis to [facility] as he is a resident there. Patient will follow-up with Dr. Henrandez in the outpatient setting upon discharge. Patient also instructed to follow-up with surgery outpatient for colonoscopy. Patient will continue on antibiotics in the form of Ceftin 500 mg twice daily the next 5 days and then may discontinue. Total time taken is greater than 35 minutes. Hospital course This is a 60-year-old male who was recently admitted with acute urinary tract infection with sepsis with Proteus mirabilis growing in the culture and was being closely monitored. Patient was started on IV antibiotics in the form of c eftriaxone and will continue Ceftin 500 mg twice daily for the next 5 days to complete the course. Surgery evaluated the patient as abdominal x-ray showed fecal impaction and was brought to the OR for disimpaction and also was started on GoLYTELY prep. Patient has had multiple bowel movements and will need outpatient colonoscopy in the near future. Patient instructed to follow-up with surgery for this. Patient will continue on Colace 100 mg twice daily along with lactulose 20 g 3 times daily as needed and hold for loose stools, along with Reglan 5 mg 3 times a day and Protonix 40 mg twice daily. Recommended to hold all laxatives and stool softeners if patient is having diarrhea or loose stools. Patient is maintained on tube feedings and will continue with vital AF-1.2 with a goal rate of 70 and free water flushes 30 mL's every 4 hours and monitor closely for residuals. Currently no reports of chest pain, shortness of breath, or palpitations. Patient is afebrile. No reports of nausea or vomiting and tolerating tube feedings. Patient will be going to [facility] today. Guarded prognosis On exam vital signs are stable. Cardio S1, S2 are muffled. Respiratory system shows diminished breath sounds at the bases with no wheezing or rhonchi noted. Abdomen is soft and nontender. Nervous system shows diffuse weakness with contractures. Please refer to medication reconciliation sheet for a list of medications. Patient Condition at Discharge: Fair Plan - Discharge Summary Discharge Rx Participant: No New Discharge Prescriptions: New Cefuroxime Axetil [Ceftin] 500 mg PO BID 5 Days #10 tab Docusate [Colace] 100 mg PO BID 30 Days #60 capsule Lactulose 20 gm PO TID PRN #120 ml PRN Reason: Constipation Metoprolol Tartrate [Lopressor] 25 mg PO BID tab Pantoprazole Sodium [Protonix] 40 mg PO BID 30 Days #60 tablet. Metoclopramide Oral Soln [Reglan Oral Soln] 5 mg PO TID #90 ml Continue Cholecalciferol [Vitamin D3 (25 Mcg = 1000 Iu)] 1,000 unit PEG/G-TUBE DAILY@0900 guaiFENesin [guaiFENesin Oral Solution] 200 mg PEG/G-TUBE Q6H PRN PRN Reason: Cough Acetaminophen Oral Susp [Tylenol] 320 mg PEG/G-TUBE Q6H PRN PRN Reason: Fever And/ Or Pain Oxybutynin Chloride [Ditropan Oral Soln] 5 mg PEG/G-TUBE TID@0600,1400,2200 Ipratropium-Albuterol Nebulize [Duoneb 0.5 mg-3 mg/3 ml Soln] 3 ml INHALATION RT-Q6H Albuterol Sulfate [Proair Hfa] 2 puff INHALATION RT-Q4H PRN PRN Reason: Shortness Of Breath Lacosamide [Vimpat] 150 mg PEG/G-TUBE BID@0900,2100 Baclofen [Lioresal] 10 mg PEG/G-TUBE TID@0600,1400,2200 carBAMazepine [TEGretol] 200 mg PEG/G-TUBE BID@0900,2100 Scopolamine [Scopolamine 1 MG/72 HR patch] 1 patch TRANSDERM Q72H Omeprazole 2mg/Ml 20 mg PEG/G-TUBE DAILY@0900 amantadine HCL [Amantadine] 100 mg PEG/G-TUBE DAILY@0900 Cranberry Fruit Extract [Cranberry] 500 mg PEG/G-TUBE DAILY@0900 Aspirin 81 mg PEG/G-TUBE DAILY@0900 Phenylephrine HCl [Sudafed PE] 10 mg PEG/G-TUBE TID Discharge Medication List Cholecalciferol [Vitamin D3 (25 Mcg = 1000 Iu)] 1,000 unit PEG/G-TUBE DAILY@0900 12/28/17 [History] guaiFENesin [guaiFENesin Oral Solution] 200 mg PEG/G-TUBE Q6H PRN 12/28/17 [History] Acetaminophen Oral Susp [Tylenol] 320 mg PEG/G-TUBE Q6H PRN 01/26/19 [History] Oxybutynin Chloride [Ditropan Oral Soln] 5 mg PEG/G-TUBE TID@0600,1400,2200 09/08/19 [History] Ipratropium-Albuterol Nebulize [Duoneb 0.5 mg-3 mg/3 ml Soln] 3 ml INHALATION RT-Q6H 12/16/19 [History] Albuterol Sulfate [Proair Hfa] 2 puff INHALATION RT-Q4H PRN 04/14/20 [History] Baclofen [Lioresal] 10 mg PEG/G-TUBE TID@0600,1400,2200 07/16/20 [History] Lacosamide [Vimpat] 150 mg PEG/G-TUBE BID@0900,209907/16/20 [History] carBAMazepine [TEGretol] 200 mg PEG/G-TUBE BID@0900,209907/30/20 [History] Scopolamine [Scopolamine 1 MG/72 HR patch] 1 patch TRANSDERM Q72H 09/07/20 [History] Aspirin 81 mg PEG/G-TUBE DAILY@0900 11/27/20 [History] Cranberry Fruit Extract [Cranberry] 500 mg PEG/G-TUBE DAILY@0900 11/27/20 [History] Omeprazole 2mg/Ml 20 mg PEG/G-TUBE DAILY@0900 11/27/20 [History] Phenylephrine HCl [Sudafed PE] 10 mg PEG/G-TUBE TID 11/27/20 [History] amantadine HCL [Amantadine] 100 mg PEG/G-TUBE DAILY@0900 11/27/20 [History] Cefuroxime Axetil [Ceftin] 500 mg PO BID 5 Days #10 tab 12/03/20 [Rx] Docusate [Colace] 100 mg PO BID 30 Days #60 capsule 12/03/20 [Rx] Lactulose 20 gm PO TID PRN #120 ml 12/03/20 [Rx] Metoclopramide Oral Soln [Reglan Oral Soln] 5 mg PO TID #90 ml 12/03/20 [Rx] Metoprolol Tartrate [Lopressor] 25 mg PO BID tab 12/03/20 [Rx] Pantoprazole Sodium [Protonix] 40 mg PO BID 30 Days #60 tablet. 12/03/20 [Rx] Follow up Appointment(s)/Referral(s): Matteo Hernandez MD [Primary Care Provider] - 1-2 days Lashonda Brody MD [STAFF PHYSICIAN] - 1 Week Activity/Diet/Wound Care/Special Instructions: patient is going to [facility] follow up with primary care provider upon discharge Activity as tolerated Head of the bed elevated 30-45 at all times with strict aspiration precautions Continue tube feedings as ordered and monitored for residuals follow up with surgery outpatient for future colonoscopy continue antibiotics for 5 days and then may discontinue Discharge Disposition: TRANSFER TO SNF/ECF
[2020-12-03 14:50] VITALS: BMI 21.5
== END 2020-12-03 16:31 | DRG 698 ==
LOC: EC 21:42 → 4SSUR 11-27 00:31
PROVIDERS: ADMIT Hospitalist; ATTEND Hospitalist
PROC: 3E0G76Z Introduction of Nutritional Substance into Upper GI, Via Natural or Artificial Opening (ICD-10-PCS; principal; 2020-11-27)
PROC: 0DJD8ZZ Inspection of Lower Intestinal Tract, Via Natural or Artificial Opening Endoscopic (ICD-10-PCS; 2020-12-02)
DX: T83.511A Infection and inflammatory reaction due to indwelling urethral catheter, initial encounter (principal); G93.41 Metabolic encephalopathy; A41.89 Other specified sepsis; E44.1 Mild protein-calorie malnutrition; K56.7 Ileus, unspecified; E87.1 Hypo-osmolality and hyponatremia; M84.452A Pathological fracture, left femur, initial encounter for fracture; N39.0 Urinary tract infection, site not specified; L89.159 Pressure ulcer of sacral region, unspecified stage; L89.609 Pressure ulcer of unspecified heel, unspecified stage; D63.8 Anemia in other chronic diseases classified elsewhere; G35 Multiple sclerosis; K56.41 Fecal impaction; Z20.822 Contact with and (suspected) exposure to COVID-19; Z93.1 Gastrostomy status; K21.9 Gastro-esophageal reflux disease without esophagitis; I10 Essential (primary) hypertension; R13.10 Dysphagia, unspecified; N31.9 Neuromuscular dysfunction of bladder, unspecified; F32.9 Major depressive disorder, single episode, unspecified; R32 Unspecified urinary incontinence; G50.0 Trigeminal neuralgia; R41.89 Other symptoms and signs involving cognitive functions and awareness; B96.4 Proteus (mirabilis) (morganii) as the cause of diseases classified elsewhere; E87.5 Hyperkalemia; G40.909 Epilepsy, unspecified, not intractable, without status epilepticus; R15.9 Full incontinence of feces; Z71.3 Dietary counseling and surveillance; Z68.21 Body mass index [BMI] 21.0-21.9, adult; Z79.82 Long term (current) use of aspirin; Z79.899 Other long term (current) drug therapy; Z86.718 Personal history of other venous thrombosis and embolism; Z87.01 Personal history of pneumonia (recurrent); Z87.440 Personal history of urinary (tract) infections; Z96.0 Presence of urogenital implants; Z86.14 Personal history of Methicillin resistant Staphylococcus aureus infection; Z98.890 Other specified postprocedural states; Z88.8 Allergy status to other drugs, medicaments and biological substances; Z82.49 Family history of ischemic heart disease and other diseases of the circulatory system
CPT/HCPCS: 36415; 45330; 71046; 74019; 74177; 80048; 80053; 81001; 83605; 83690; 85025; 85027; 85610; 85730; 87040; 87077; 87086; 87186; 87635; 93005; 94760; 96376; 99285

== ENCOUNTER 2020-12-08 04:48 | Emergency (ER) | payer MEDICARE, OTHER ==
--- NOTE | 2020-12-08 04:54 | ED ---
Recheck HPI - General Stated Complaint: PEG tube issues Time Seen by Provider: 12/08/20 04:53 Source: RN notes reviewed, old records reviewed, Caregiver Mode of arrival: EMS Limitations: altered mental status, physical limitation - History of Present Illness Initial Comments: This is a 60-year-old male DF patient Dese for evaluation with PEG tube evaluation. PEG tube malfunction PEG tube self working patient sent DF with change of PEG tube or evaluation of PEG tube function. Patient still is unable to make history of complaint MD Complaint: wound re-check (Evaluation of PEG tube) -: hour(s) Returns Today for: persistent/worsening pain related to initial visit Symptoms Since Prior Visit: worsening pain Context: planned re-check (Sent to ER for evaluation of trach tube malfunction) Associated Symptoms: abdominal pain Treatments Prior to Arrival: home treatments - Related Data Home Medications Medication Instructions Recorded Confirmed Cholecalciferol [Vitamin D3 (25 1,000 unit PEG/G-TUBE DAILY@0900 12/28/17 11/27/20 Mcg = 1000 Iu)] guaiFENesin [guaiFENesin Oral 200 mg PEG/G-TUBE Q6H PRN 12/28/17 11/27/20 Solution] Acetaminophen Oral Susp [Tylenol] 320 mg PEG/G-TUBE Q6H PRN 01/26/19 11/27/20 Oxybutynin Chloride [Ditropan Oral 5 mg PEG/G-TUBE TID@0600,1400,2200 09/08/19 11/27/20 Soln] Ipratropium-Albuterol Nebulize 3 ml INHALATION RT-Q6H 12/16/19 11/27/20 [Duoneb 0.5 mg-3 mg/3 ml Soln] Albuterol Sulfate [Proair Hfa] 2 puff INHALATION RT-Q4H PRN 04/14/20 11/27/20 Baclofen [Lioresal] 10 mg PEG/G-TUBE TID@0600,1400,2200 07/16/20 11/27/20 carBAMazepine [TEGretol] 200 mg PEG/G-TUBE BID@0900,2100 07/30/20 11/27/20 Scopolamine [Scopolamine 1 MG/72 1 patch TRANSDERM Q72H 09/07/20 11/27/20 HR patch] Aspirin 81 mg PEG/G-TUBE DAILY@0900 11/27/20 11/27/20 Cranberry Fruit Extract [Cranberry] 500 mg PEG/G-TUBE DAILY@0900 11/27/20 11/27/20 Omeprazole 2mg/Ml 20 mg PEG/G-TUBE DAILY@0911/27/20 11/27/20 Phenylephrine HCl [Sudafed PE] 10 mg PEG/G-TUBE TID 11/27/20 11/27/20 amantadine HCL [Amantadine] 100 mg PEG/G-TUBE DAILY@0911/27/20 11/27/20 Previous Rx's Medication Instructions Recorded Cefuroxime Axetil [Ceftin] 500 mg PO BID 5 Days #10 tab 12/03/20 Docusate [Colace] 100 mg PO BID 30 Days #60 capsule 12/03/20 Lacosamide [Vimpat] 150 mg PEG/G-TUBE BID@0900,2100 #6 12/03/20 tab Lactulose 20 gm PO TID PRN #120 ml 12/03/20 Metoclopramide Oral Soln [Reglan 5 mg PO TID #90 ml 12/03/20 Oral Soln] Metoprolol Tartrate [Lopressor] 25 mg PO BID tab 12/03/20 Pantoprazole Sodium [Protonix] 40 mg PO BID 30 Days #60 tablet. 12/03/20 Allergies Allergy/AdvReac Type Severity Reaction Status Date / Time meropenem [From Merrem] Allergy Rash/Hives Verified 11/27/20 09:19 Review of Systems ROS Statement: Those systems with pertinent positive or pertinent negative responses have been documented in the HPI. ROS Other: All systems not noted in ROS Statement are negative. Past Medical History Past Medical History: Deep Vein Thrombosis (DVT), GERD/Reflux, Hypertension, Musculoskeletal Disorder, Neurologic Disorder, Pneumonia, Skin Disorder Additional Past Medical History / Comment(s): Pt recently hospitalized at [facility] for extensive stay with seizure/pneumonia/UTI with sepsis/respirtory failure/vented-Pt diagnosed with multiple sclerosis at the age of 20 yrs, cognitive impairment, sister states when he is feeling well he could speak a few words/nod head appropriately/give thumbs up/roll eyes but when ill is nonverbal, pt has dysphagia/NPO with peg tube, contractures, trigeminal neuralgia, dysarthria/anarthria/neurogenic bladder with IDC-UTIs/sepsis, multiple pneumonias, recent seizure-last one 07/03/20, incontinent of stool, pt has had decubitus ulcer coccyx-sister unsure of skin condition at this time, past anemia r/t heparin/epistaxiis which involved nasal packing/transfusions, DVT bilateral arms. Currently residing at [facility]. Wears oxygen at 2L per n/c. History of Any Multi-Drug Resistant Organisms: ESBL, MRSA Date of last positivie culture/infection: 09/13/19-MRSA; 11/23/19 ESBL-E.coli MDRO Source:: Broch lavage-Mrsa; Urine -ESBL Past Surgical History: Tonsillectomy Additional Past Surgical History / Comment(s): Gastrostomy, peg tube, I&D coccyx decubitius, bilateral lasik eye surgery. Past Anesthesia/Blood Transfusion Reactions: No Reported Reaction Additional Past Anesthesia/Blood Transfusion Reaction / Comment(s): Pt has received blood in past without reaction. Past Psychological History: Depression Additional Psychological History / Comment(s): Pt resides at [facility]. He normally is in bed/amita lift to wheelchair. Has peg/IDC Smoking Status: Unknown if ever smoked Past Alcohol Use History: None Reported Past Drug Use History: None Reported - Past Family History Father Family Medical History: Myocardial Infarction ([place]) Mother Family Medical History: Hypertension, Myocardial Infarction ([place]) Additional Family Medical History / Comment(s): Mother of a [place] at the age of 73 yrs. General Exam General appearance: alert, in no apparent distress Head exam: Present: atraumatic, normocephalic, normal inspection Eye exam: Present: normal appearance, PERRL, EOMI. Absent: scleral icterus, conjunctival injection, periorbital swelling ENT exam: Present: normal exam, mucous membranes moist Neck exam: Present: normal inspection. Absent: tenderness, meningismus, lymphadenopathy Respiratory exam: Present: normal lung sounds bilaterally. Absent: respiratory distress, wheezes, rales, rhonchi, stridor Cardiovascular Exam: Present: regular rate, normal rhythm, normal heart sounds. Absent: systolic murmur, diastolic murmur, rubs, gallop, clicks GI/Abdominal exam: Present: soft, normal bowel sounds. Absent: distended, tenderness, guarding, rebound, rigid Extremities exam: Present: normal inspection, full ROM, normal capillary refill. Absent: tenderness, pedal edema, joint swelling, calf tenderness Back exam: Present: normal inspection Neurological exam: Present: alert, oriented X3, CN II-XII intact Psychiatric exam: Present: normal affect, normal mood Skin exam: Present: warm, dry, intact, normal color. Absent: rash Course Vital Signs 12/08/20 04:55 Temperature 98.6 F Pulse Rate 82 Respiratory 18 Rate Blood Pressure 139/86 O2 Sat by Pulse 97 Oximetry - Reevaluation(s) Reevaluation #1: Medical record is reviewed Patient no distress here in the ER is improved Spoke with patient regarding findings, questions are answered Patient does have improved PEG tube, functions properly Medical Decision Making - Medical Decision Making 60 male for PEG tube malfunction, peg tube is able to effects without replacement here in the ER patient can be discharged home Disposition Clinical Impression: PEG tube malfunction Disposition: HOME SELF-CARE Condition: Good Instructions (If sedation given, give patient instructions): PEG Tube Insertion (DC) Is patient prescribed a controlled substance at d/c from ED?: No Referrals: Matteo Hernandez MD [Primary Care Provider] - 1-2 days
[2020-12-08 04:58] VITALS: BP 139/86; PULSE 82; RESP 18; TEMP 98.6
== END 2020-12-08 06:31 | disposition home or self-care (01) ==
LOC: EC 04:48
DX: K94.23 Gastrostomy malfunction (principal); F32.9 Major depressive disorder, single episode, unspecified; K21.9 Gastro-esophageal reflux disease without esophagitis; I10 Essential (primary) hypertension; Z79.899 Other long term (current) drug therapy; Z88.8 Allergy status to other drugs, medicaments and biological substances; Z86.14 Personal history of Methicillin resistant Staphylococcus aureus infection
CPT/HCPCS: 99283

== ENCOUNTER 2021-02-05 06:08 | Emergency (ER) | payer MEDICARE, OTHER ==
--- NOTE | 2021-02-05 06:21 | ED ---
General Adult HPI - General Stated complaint: peg tube replacement Time Seen by Provider: 02/05/21 06:10 Source: patient, EMS, RN notes reviewed Mode of arrival: EMS Limitations: language barrier, altered mental status - History of Present Illness Initial comments: 60-year-old male presents emergency Department via EMS from [facility] for PEG tube replacement. His PEG tube was dislodged. Staff Did place Stein catheter in place. No other complaints noted. Patient is nonverbal. - Related Data Home Medications Medication Instructions Recorded Confirmed Cholecalciferol [Vitamin D3 (25 1,000 unit PEG/G-TUBE DAILY@0900 12/28/17 11/27/20 Mcg = 1000 Iu)] guaiFENesin [guaiFENesin Oral 200 mg PEG/G-TUBE Q6H PRN 12/28/17 11/27/20 Solution] Acetaminophen Oral Susp [Tylenol] 320 mg PEG/G-TUBE Q6H PRN 01/26/19 11/27/20 Oxybutynin Chloride [Ditropan Oral 5 mg PEG/G-TUBE TID@0600,1400,2200 09/08/19 11/27/20 Soln] Ipratropium-Albuterol Nebulize 3 ml INHALATION RT-Q6H 12/16/19 11/27/20 [Duoneb 0.5 mg-3 mg/3 ml Soln] Albuterol Sulfate [Proair Hfa] 2 puff INHALATION RT-Q4H PRN 04/14/20 11/27/20 Baclofen [Lioresal] 10 mg PEG/G-TUBE TID@0600,1400,2200 07/16/20 11/27/20 carBAMazepine [TEGretol] 200 mg PEG/G-TUBE BID@0900,2100 07/30/20 11/27/20 Scopolamine [Scopolamine 1 MG/72 1 patch TRANSDERM Q72H 09/07/20 11/27/20 HR patch] Aspirin 81 mg PEG/G-TUBE DAILY@89911/27/20 11/27/20 Cranberry Fruit Extract [Cranberry] 500 mg PEG/G-TUBE DAILY@0911/27/20 11/27/20 Omeprazole 2mg/Ml 20 mg PEG/G-TUBE DAILY@89911/27/20 11/27/20 Phenylephrine HCl [Sudafed PE] 10 mg PEG/G-TUBE TID 11/27/20 11/27/20 amantadine HCL [Amantadine] 100 mg PEG/G-TUBE DAILY@0900 11/27/20 11/27/20 Previous Rx's Medication Instructions Recorded Cefuroxime Axetil [Ceftin] 500 mg PO BID 5 Days #10 tab 12/03/20 Docusate [Colace] 100 mg PO BID 30 Days #60 capsule 12/03/20 Lacosamide [Vimpat] 150 mg PEG/G-TUBE BID@0900,2100 #6 12/03/20 tab Lactulose 20 gm PO TID PRN #120 ml 12/03/20 Metoclopramide Oral Soln [Reglan 5 mg PO TID #90 ml 12/03/20 Oral Soln] Metoprolol Tartrate [Lopressor] 25 mg PO BID tab 12/03/20 Pantoprazole Sodium [Protonix] 40 mg PO BID 30 Days #60 tablet. 12/03/20 Allergies Allergy/AdvReac Type Severity Reaction Status Date / Time meropenem [From Merrem] Allergy Rash/Hives Verified 11/27/20 09:19 Review of Systems ROS Statement: Those systems with pertinent positive or pertinent negative responses have been documented in the HPI. ROS Other: All systems not noted in ROS Statement are negative. Past Medical History Past Medical History: Deep Vein Thrombosis (DVT), GERD/Reflux, Hypertension, Musculoskeletal Disorder, Neurologic Disorder, Pneumonia, Skin Disorder Additional Past Medical History / Comment(s): Pt recently hospitalized at [facility] for extensive stay with seizure/pneumonia/UTI with sepsis/respirtory failure/vented-Pt diagnosed with multiple sclerosis at the age of 20 yrs, cognitive impairment, sister states when he is feeling well he could speak a few words/nod head appropriately/give thumbs up/roll eyes but when ill is nonverbal, pt has dysphagia/NPO with peg tube, contractures, trigeminal neuralgia, dysarthria/anarthria/neurogenic bladder with IDC-UTIs/sepsis, multiple pneumonias, recent seizure-last one 07/03/20, incontinent of stool, pt has had decubitus ulcer coccyx-sister unsure of skin condition at this time, past anemia r/t heparin/epistaxiis which involved nasal packing/transfusions, DVT bilateral arms. Currently residing at [facility]. Wears oxygen at 2L per n/c. History of Any Multi-Drug Resistant Organisms: ESBL, MRSA Date of last positivie culture/infection: 09/13/19-MRSA; 11/23/19 ESBL-E.coli MDRO Source:: Broch lavage-Mrsa; Urine -ESBL Past Surgical History: Tonsillectomy Additional Past Surgical History / Comment(s): Gastrostomy, peg tube, I&D coccyx decubitius, bilateral lasik eye surgery. Past Anesthesia/Blood Transfusion Reactions: No Reported Reaction Additional Past Anesthesia/Blood Transfusion Reaction / Comment(s): Pt has received blood in past without reaction. Past Psychological History: Depression Additional Psychological History / Comment(s): Pt resides at [facility]. He normally is in bed/amita lift to wheelchair. Has peg/IDC Smoking Status: Unknown if ever smoked Past Alcohol Use History: None Reported Past Drug Use History: None Reported - Past Family History Father Family Medical History: Myocardial Infarction ([place]) Mother Family Medical History: Hypertension, Myocardial Infarction ([place]) Additional Family Medical History / Comment(s): Mother of a [place] at the age of 73 yrs. General Exam Limitations: language barrier, altered mental status General appearance: alert, in no apparent distress Head exam: Present: atraumatic, normocephalic, normal inspection Respiratory exam: Present: rhonchi (Mild). Absent: normal lung sounds bilaterally, respiratory distress, wheezes, rales, stridor Cardiovascular Exam: Present: regular rate, normal rhythm, normal heart sounds. Absent: systolic murmur, diastolic murmur, rubs, gallop, clicks GI/Abdominal exam: Present: soft, normal bowel sounds. Absent: distended, tenderness, guarding, rebound, rigid Course Vital Signs 02/05/21 06:10 Temperature 97.7 F Pulse Rate 72 Respiratory 20 Rate Blood Pressure 135/83 O2 Sat by Pulse 100 Oximetry Procedures - Feeding Tube Replacement Reason for Replacement: fell out Initial Tube Inserted: greater than 2 weeks Type of Tube: gastrostomy Use of Tube: medications and feeding Insertion Site Prior to Procedure: clean Tube Used for Reinsertion: other (16-gauge gastrostomy tube) Malay Tube Size (F): 16 Balloon Size (mls): 5 Verification of Placement: KUB, gastrografin injection Tube Secured by: G-tube attachment device Patient Tolerated Procedure: well, no complications Medical Decision Making - Medical Decision Making PEG tube was replaced no complications program was obtained shows adequate placement patient will be discharged. Disposition Clinical Impression: PEG tube malfunction Disposition: HOME SELF-CARE Condition: Stable Instructions (If sedation given, give patient instructions): PEG Tube Insertion (DC) Additional Instructions: Please return to the Emergency Department if symptoms worsen or any other concerns. Is patient prescribed a controlled substance at d/c from ED?: No Referrals: Matteo Hernandez MD [Primary Care Provider] - 1-2 days Time of Disposition: 06:21
--- NOTE | 2021-02-05 06:45 | XR ---
EXAM: XR Abdomen, 1 View CLINICAL HISTORY: ITS.REASON XR Reason: PEG tube placement TECHNIQUE: Frontal supine view of the abdomen/pelvis. COMPARISON: No relevant prior studies available. FINDINGS/IMPRESSION: Contrast is noted within the confines of the stomach. No extraluminal contrast to indicate extravasation.
[2021-02-05 07:15] VITALS: BP 138/93; PULSE 74; RESP 18; TEMP 97.8
== END 2021-02-05 07:56 | disposition home or self-care (01) ==
LOC: EC 06:08
DX: K94.23 Gastrostomy malfunction (principal); I10 Essential (primary) hypertension; K21.9 Gastro-esophageal reflux disease without esophagitis; Z86.718 Personal history of other venous thrombosis and embolism; F32.9 Major depressive disorder, single episode, unspecified; Z79.82 Long term (current) use of aspirin
CPT/HCPCS: 74018; 99283; 43762; Q9967

== ENCOUNTER 2021-03-07 15:58 | Inpatient (IN) | payer MEDICARE, OTHER ==
[2021-03-07] MEDS ORDERED: SODIUM CHLORIDE 0.9% 500 ML 500 ML IV STA (16:47)
--- NOTE | 2021-03-07 17:03 | ED ---
General Adult HPI - General Chief complaint: Shortness of Breath Stated complaint: Eye infection Time Seen by Provider: 03/07/21 16:33 Source: family, EMS, RN notes reviewed, old records reviewed Mode of arrival: EMS Limitations: language barrier, altered mental status, physical limitation - History of Present Illness Initial comments: 60-year-old male sent in from the neurologist office where he was scheduled to have an EEG had presented with increased cough and dyspnea. Patient has significant cough. He does have a history of aspiration pneumonia as well as drug resistant UTI. He has an indwelling Stein catheter. PEG tube. No reported fever. History is obtained entirely from the sister who is at bedside. She is very familiar with his medical history. Currently resides in care home. - Related Data Home Medications Medication Instructions Recorded Confirmed Cholecalciferol [Vitamin D3 (25 1,000 unit PEG/G-TUBE DAILY@0900 12/28/17 11/27/20 Mcg = 1000 Iu)] guaiFENesin [guaiFENesin Oral 200 mg PEG/G-TUBE Q6H PRN 12/28/17 11/27/20 Solution] Acetaminophen Oral Susp [Tylenol] 320 mg PEG/G-TUBE Q6H PRN 01/26/19 11/27/20 Oxybutynin Chloride [Ditropan Oral 5 mg PEG/G-TUBE TID@0600,1400,2200 09/08/19 11/27/20 Soln] Ipratropium-Albuterol Nebulize 3 ml INHALATION RT-Q6H 12/16/19 11/27/20 [Duoneb 0.5 mg-3 mg/3 ml Soln] Albuterol Sulfate [Proair Hfa] 2 puff INHALATION RT-Q4H PRN 04/14/20 11/27/20 Baclofen [Lioresal] 10 mg PEG/G-TUBE TID@0600,1400,2200 07/16/20 11/27/20 carBAMazepine [TEGretol] 200 mg PEG/G-TUBE BID@0900,2100 07/30/20 11/27/20 Scopolamine [Scopolamine 1 MG/72 1 patch TRANSDERM Q72H 09/07/20 11/27/20 HR patch] Aspirin 81 mg PEG/G-TUBE DAILY@0900 11/27/20 11/27/20 Cranberry Fruit Extract [Cranberry] 500 mg PEG/G-TUBE DAILY@0900 11/27/20 0 11/27/20 Omeprazole 2mg/Ml 20 mg PEG/G-TUBE DAILY@0900 11/27/20 11/27/20 Phenylephrine HCl [Sudafed PE] 10 mg PEG/G-TUBE TID 11/27/20 11/27/20 amantadine HCL [Amantadine] 100 mg PEG/G-TUBE DAILY@0900 11/27/20 11/27/20 Previous Rx's Medication Instructions Recorded Cefuroxime Axetil [Ceftin] 500 mg PO BID 5 Days #10 tab 12/03/20 Docusate [Colace] 100 mg PO BID 30 Days #60 capsule 12/03/20 Lacosamide [Vimpat] 150 mg PEG/G-TUBE BID@0900,2100 #6 12/03/20 tab Lactulose 20 gm PO TID PRN #120 ml 12/03/20 Metoclopramide Oral Soln [Reglan 5 mg PO TID #90 ml 12/03/20 Oral Soln] Metoprolol Tartrate [Lopressor] 25 mg PO BID tab 12/03/20 Pantoprazole Sodium [Protonix] 40 mg PO BID 30 Days #60 tablet. 12/03/20 Allergies Allergy/AdvReac Type Severity Reaction Status Date / Time meropenem [From Merrem] Allergy Rash/Hives Verified 11/27/20 09:19 Review of Systems ROS Statement: Those systems with pertinent positive or pertinent negative responses have been documented in the HPI. ROS Other: All systems not noted in ROS Statement are negative. Past Medical History Past Medical History: Deep Vein Thrombosis (DVT), GERD/Reflux, Hypertension, Musculoskeletal Disorder, Neurologic Disorder, Pneumonia, Skin Disorder Additional Past Medical History / Comment(s): Pt recently hospitalized at [facility] for extensive stay with seizure/pneumonia/UTI with sepsis/respirtory failure/ve nted-Pt diagnosed with multiple sclerosis at the age of 20 yrs, cognitive impairment, sister states when he is feeling well he could speak a few words/nod head appropriately/give thumbs up/roll eyes but when ill is nonverbal, pt has dysphagia/NPO with peg tube, contractures, trigeminal neuralgia, dy sarthria/anarthria/neurogenic bladder with IDC-UTIs/sepsis, multiple pneumonias, recent seizure-last one 07/03/20, incontinent of stool, pt has had decubitus ulcer coccyx-sister unsure of skin condition at this time, past anemia r/t heparin/epistaxiis which involved nasal packing/transfusions, DVT bilateral arms. Currently residing at [facility]. Wears oxygen at 2L per n/c. History of Any Multi-Drug Resistant Organisms: ESBL, MRSA Date of last positivie culture/infection: 09/13/19-MRSA; 11/23/19 ESBL-E.coli MDRO Source:: Broch lavage-Mrsa; Urine -ESBL Past Surgical History: Tonsillectomy Additional Past Surgical History / Comment(s): Gastrostomy, peg tube, I&D coccyx decubitius, bilateral lasik eye surgery. Past Anesthesia/Blood Transfusion Reactions: No Reported Reaction Additional Past Anesthesia/Blood Transfusion Reaction / Comment(s): Pt has received blood in past without reaction. Past Psychological History: Depression Smoking Status: Unknown if ever smoked Past Alcohol Use History: None Reported Past Drug Use History: None Reported - Past Family History Father Family Medical History: Myocardial Infarction ([place]) Mother Family Medical History: Hypertension, Myocardial Infarction ([place]) Additional Family Medical History / Comment(s): Mother of a [place] at the age of 73 yrs. General Exam Limitations: language barrier, altered mental status, physical limitation General appearance: lethargic Head exam: Present: atraumatic, normocephalic Eye exam: Present: PERRL, other (Bilateral conjunctivitis) ENT exam: Present: mucous membranes dry Neck exam: Absent: tenderness Respiratory exam: Present: rhonchi, decreased breath sounds. Absent: respiratory distress Cardiovascular Exam: Present: regular rate, normal rhythm GI/Abdominal exam: Present: soft. Absent: distended, tenderness, guarding Extremities exam: Present: other (Left upper extremity swelling, minimal. Contracture of all 4 extremities) Skin exam: Present: warm, dry. Absent: cyanosis Course Vital Signs 03/07/21 03/07/21 16:05 16:34 Temperature 98.2 F Pulse Rate 78 Respiratory 20 20 Rate Blood Pressure 158/93 O2 Sat by Pulse 97 Oximetry - Reevaluation(s) Reevaluation #1: 03/07/21 18:[address] Carey who will admit EKG Findings - EKG Comments: EKG Findings:: EKG: Normal sinus rhythm, rate of 77, NV interval 142, QRS duration 80, QTC 420, no ST segment elevation. Medical Decision Making - Medical Decision Making 60-year-old male with dyspnea and cough. Patient does have PEG tube, coronary this history at been laid flat several days prior and there was concern for aspi ration. Patient has x-ray showing concern for worsening infiltrate in the right lower lung field. Patient has a normal CBC, normal CMP. He started on antibiotics. He will be admitted for IV antibiotics and hydration. - Lab Data Result diagrams: 03/07/21 17:27 03/07/21 17:27 Lab Results 03/07/21 03/07/21 03/07/21 Range/Units 17:27 17:27 17:27 WBC 7.9 (3.8-10.6) k/uL RBC 5.10 (4.30-5.90) m/uL Hgb 12.9 L (13.0-17.5) gm/dL Hct 41.7 (39.0-53.0) % MCV 81.8 (80.0-100.0) fL MCH 25.2 (25.0-35.0) pg MCHC 30.9 L (31.0-37.0) g/dL RDW 16.4 H (11.5-15.5) % Plt Count 430 (150-450) k/uL MPV 8.0 Neutrophils % 66 % Lymphocytes % 18 % Monocytes % 8 % Eosinophils % 6 % Basophils % 1 % Neutrophils # 5.2 (1.3-7.7) k/uL Lymphocytes # 1.4 (1.0-4.8) k/uL Monocytes # 0.6 (0-1.0) k/uL Eosinophils # 0.4 (0-0.7) k/uL Basophils # 0.1 (0-0.2) k/uL Hypochromasia Slight Anisocytosis Slight PT 10.6 (9.0-12.0) sec INR 1.0 (<1.2) APTT 21.6 L (22.0-30.0) sec Sodium (137-145) mmol/L Potassium (3.5-5.1) mmol/L Chloride (98-107) mmol/L Carbon Dioxide (22-30) mmol/L Anion Gap mmol/L BUN (9-20) mg/dL Creatinine (0.66-1.25) mg/dL Est GFR (CKD-EPI)AfAm (>60 ml/min/1.73 sqM) Est GFR (CKD-EPI)NonAf (>60 ml/min/1.73 sqM) Glucose (74-99) mg/dL Plasma Lactic Acid [place] (0.7-2.0) mmol/L Calcium (8.4-10.2) mg/dL Total Bilirubin (0.2-1.3) mg/dL AST (17-59) U/L ALT (4-49) U/L Alkaline Phosphatase (38-126) U/L Total Protein (6.3-8.2) g/dL Albumin (3.5-5.0) g/dL Urine Color Yellow Urine Appearance Cloudy (Clear) Urine pH 7.0 (5.0-8.0) Ur Specific [place] 1.017 (1.001-1.035) Urine Protein Trace H (Negative) Urine Glucose (UA) Negative (Negative) Urine Ketones Negative (Negative) Urine Blood Negative (Negative) Urine Nitrite Positive (Negative) Urine Bilirubin Negative (Negative) Urine Urobilinogen <2.0 (<2.0) mg/dL Ur Leukocyte Esterase Large H (Negative) Urine RBC 10 H (0-5) /hpf Urine WBC 26 H (0-5) /hpf Ur Squamous Epith Cells <1 (0-4) /hpf Amorphous Sediment Rare H (None) /hpf Urine Bacteria Few H (None) /hpf 03/07/21 03/07/21 Range/Units 17:27 17:27 WBC (3.8-10.6) k/uL RBC (4.30-5.90) m/uL Hgb (13.0-17.5) gm/dL Hct (39.0-53.0) % MCV (80.0-100.0) fL MCH (25.0-35.0) pg MCHC (31.0-37.0) g/dL RDW (11.5-15.5) % Plt Count (150-450) k/uL MPV Neutrophils % % Lymphocytes % % Monocytes % % Eosinophils % % Basophils % % Neutrophils # (1.3-7.7) k/uL Lymphocytes # (1.0-4.8) k/uL Monocytes # (0-1.0) k/uL Eosinophils # (0-0.7) k/uL Basophils # (0-0.2) k/uL Hypochromasia Anisocytosis PT (9.0-12.0) sec INR (<1.2) APTT (22.0-30.0) sec Sodium 138 (137-145) mmol/L Potassium 4.8 (3.5-5.1) mmol/L Chloride 103 (98-107) mmol/L Carbon Dioxide 26 (22-30) mmol/L Anion Gap 9 mmol/L BUN 24 H (9-20) mg/dL Creatinine 0.63 L (0.66-1.25) mg/dL Est GFR (CKD-EPI)AfAm >90 (>60 ml/min/1.73 sqM) Est GFR (CKD-EPI)NonAf >90 (>60 ml/min/1.73 sqM) Glucose 95 (74-99) mg/dL Plasma Lactic Acid [place] 1.1 (0.7-2.0) mmol/L Calcium 9.3 (8.4-10.2) mg/dL Total Bilirubin 0.2 (0.2-1.3) mg/dL AST 24 (17-59) U/L ALT 16 (4-49) U/L Alkaline Phosphatase 151 H (38-126) U/L Total Protein 7.8 (6.3-8.2) g/dL Albumin 4.0 (3.5-5.0) g/dL Urine Color Urine Appearance (Clear) Urine pH (5.0-8.0) Ur Specific [place] (1.001-1.035) Urine Protein (Negative) Urine Glucose (UA) (Negative) Urine Ketones (Negative) Urine Blood (Negative) Urine Nitrite (Negative) Urine Bilirubin (Negative) Urine Urobilinogen (<2.0) mg/dL Ur Leukocyte Esterase (Negative) Urine RBC (0-5) /hpf Urine WBC (0-5) /hpf Ur Squamous Epith Cells (0-4) /hpf Amorphous Sediment (None) /hpf Urine Bacteria (None) /hpf Disposition Clinical Impression: HCAP (healthcare-associated pneumonia), UTI (urinary tract infection) Disposition: ADMITTED IP TO THIS HOSP Condition: Stable Is patient prescribed a controlled substance at d/c from ED?: No Referrals: Matteo Hernandez MD [Primary Care Provider] - 1-2 days Decision to Admit Reason: Admit from EC Decision Date: 03/07/21 Decision Time: 18:42
--- NOTE | 2021-03-07 17:25 | XR ---
EXAMINATION TYPE: XR chest 1V portable DATE OF EXAM: 03/07/2021 COMPARISON: 11/26/2020 HISTORY: Cough TECHNIQUE: FINDINGS: There is some linear density in the right lower lung field. There is mild elevation of the right diaphragm. Heart size is normal. There is no heart failure. There is old left-sided healed rib fracture. There are no hilar masses. Mediastinum is within normal limits. IMPRESSION: There is increased atelectasis and interstitial infiltrate in the right lower lobe compared to old ex am. No gross heart failure. Interstitial pulmonary markings generally increased compared to old exam.
[2021-03-07 17:47] LABS: Anisocytosis Slight; Basophils # (A) 0.1 k/uL (0-0.2); Basophils % (A) 1 %; Eosinophils # (A) 0.4 k/uL (0-0.7); Eosinophils % (A) 6 %; HCT 41.7 % (39.0-53.0); HGB 12.9 gm/dL (13.0-17.5); Hypochromasia Slight; Lymphocytes # (A) 1.4 k/uL (1.0-4.8); Lymphocytes % (A) 18 %; MCH 25.2 pg (25.0-35.0); MCHC 30.9 g/dL (31.0-37.0); MCV 81.8 fL (80.0-100.0); Monocytes # (A) 0.6 k/uL (0-1.0); Monocytes % (A) 8 %; Neutrophils # (A) 5.2 k/uL (1.3-7.7); Neutrophils % (A) 66 %; Platelet Count 430 k/uL (150-450); RDW 16.4 % (11.5-15.5); WBC 7.9 k/uL (3.8-10.6)
[2021-03-07 17:52] LABS: ALT 16 U/L (4-49); AST 24 U/L (17-59); African American GFR (CKD) >90 (>60 ml/min/1.73 sqM); Alkaline Phosphatase 151 U/L (38-126); Anion Gap 9 mmol/L; Blood Urea Nitrogen 24 mg/dL (9-20); Calcium 9.3 mg/dL (8.4-10.2); Carbon Dioxide 26 mmol/L (22-30); Chloride 103 mmol/L (98-107); Glucose 95 mg/dL (74-99); Non-African American GFR(CKD) >90 (>60 ml/min/1.73 sqM); Potassium 4.8 mmol/L (3.5-5.1); Sodium 138 mmol/L (137-145); Total Bilirubin 0.2 mg/dL (0.2-1.3); Total Protein 7.8 g/dL (6.3-8.2)
[2021-03-07 17:54] LABS: Amorphous Sediment,Urine Rare /hpf; Appearance,Urine Cloudy (Clear); Bacteria,Urine Few /hpf; Bilirubin,Urine Negative (Negative); Blood,Urine Negative (Negative); Color,Urine Yellow; Glucose,Urine (UA) Negative (Negative); Ketones,Urine Negative (Negative); Leukocyte Esterase,Urine Large (Negative); Nitrite,Urine Positive (Negative); Protein,Urine Trace (Negative); RBC,Urine 10 /hpf (0-5); Specific Gravity,Urine 1.017 (1.001-1.035); Squamous Epithelial Cell,Urine <1 /hpf (0-4); Urobilinogen,Urine <2.0 mg/dL (<2.0); WBC,Urine 26 /hpf (0-5)
--- NOTE | 2021-03-07 18:13 | US ---
EXAMINATION TYPE: US venous doppler duplex UE LT DATE OF EXAM: 03/07/2021 COMPARISON: NONE CLINICAL HISTORY: Left hand swelling per family. Patient is non-verbal and non-cooperative. patient w ill not move arm away from his body. Limited exam SIDE PERFORMED: Left Left Arm: Negative for DVT as visualized Unable to visualize left axillary vein as patient would not move his arm away from his body. IMPRESSION: No evidence of deep vein thrombosis in the left arm. Limited exam.
[2021-03-07 18:22] LABS: Partial Thromboplastin Time 21.6 sec (22.0-30.0); Prothrombin Time 10.6 sec (9.0-12.0)
[2021-03-07] MEDS ORDERED: CEFEPIME 2 GM in SODIUM CHLORIDE 0.9% 100 ML IVPB STA (18:22)
[2021-03-07] MEDS ORDERED: VANCOMYCIN IV PER PHARMACY 1 EACH MISC MISCELLANE PRN (18:38)
[2021-03-07] MEDS ORDERED: NALOXONE 0.4 MG/ML 1 ML VIAL IV PRN (18:39)
[2021-03-07] MEDS ORDERED: VANCOMYCIN 1,250 MG in SODIUM CHLORIDE 0.9% 250 ML IVPB STA (18:48)
[2021-03-07] MEDS: SODIUM CHLORIDE 0.9% 1,000 ML IV SCH (18:52)
[2021-03-07] MEDS: ERYTHROMYCIN 5 MG/GM OPHTH OINT 3.5 GM TUBE BOTH EYES SCH (19:07)
[2021-03-08] MEDS: ERYTHROMYCIN 5 MG/GM OPHTH OINT 3.5 GM TUBE BOTH EYES SCH ×5 (01:29→23:26)
[2021-03-08] MEDS: CEFEPIME 2 GM in SODIUM CHLORIDE 0.9% 100 ML IVPB SCH ×3 (04:04→19:58)
[2021-03-08] MEDS: VANCOMYCIN 1,250 MG in SODIUM CHLORIDE 0.9% 250 ML IVPB SCH ×3 (05:46→23:24)
[2021-03-08 07:39] LABS: African American GFR (CKD) >90 (>60 ml/min/1.73 sqM); Anion Gap 9 mmol/L; Blood Urea Nitrogen 19 mg/dL (9-20); Calcium 9.1 mg/dL (8.4-10.2); Carbon Dioxide 19 mmol/L (22-30); Chloride 112 mmol/L (98-107); Glucose 107 mg/dL (74-99); Non-African American GFR(CKD) >90 (>60 ml/min/1.73 sqM); Sodium 140 mmol/L (137-145)
[2021-03-08 07:55] LABS: Potassium 4.7 mmol/L (3.5-5.1)
[2021-03-08] MEDS: SODIUM CHLORIDE 0.9% 1,000 ML IV SCH ×2 (08:36→20:29)
[2021-03-08] MEDS ORDERED: IPRATROPIUM-ALBUTEROL 3 ML NEB INHALATION PRN (11:01)
[2021-03-08] MEDS ORDERED: MAGNESIUM HYDROXIDE 2,400 MG/10 ML CUP PEG/G-TUBE PRN (11:01)
[2021-03-08] MEDS: BACLOFEN 10 MG TAB PEG/G-TUBE SCH ×2 (14:23→20:00)
[2021-03-08] MEDS: OXYBUTYNIN CHLORIDE 5 MG TAB PEG/G-TUBE SCH ×2 (14:24→20:00)
[2021-03-08] MEDS: METOPROLOL TARTRATE 25 MG TAB PEG/G-TUBE SCH (19:59)
[2021-03-08] MEDS: DOCUSATE ORAL SOLN 100 MG/10 ML CUP PEG/G-TUBE SCH (20:00)
[2021-03-08] MEDS: FAMOTIDINE 20 MG TAB PEG/G-TUBE SCH (20:00)
[2021-03-08] MEDS: carBAMazepine 200 MG TAB PEG/G-TUBE SCH (20:27)
[2021-03-08] MEDS: LACOSAMIDE 150 MG TABLET PEG/G-TUBE SCH (20:27)
[2021-03-08] MEDS: LACTULOSE 20 GM/30 ML CUP PEG/G-TUBE SCH (20:28)
[2021-03-08] MEDS ORDERED: SUPPLEMENT PEG/G-TUBE SCH (21:00)
[2021-03-08] MEDS ORDERED: [UNRECOGNIZED DRUG - OTHER] PEG/G-TUBE SCH (21:00)
[2021-03-08] MEDS ORDERED: FAMOTIDINE 8 MG/ML ORAL.SUSP PEG/G-TUBE SCH (21:00)
[2021-03-08] MEDS ORDERED: [UNRECOGNIZED DRUG - OTHER] PEG/G-TUBE SCH (21:00)
--- NOTE | 2021-03-08 21:31 | P.HPIM ---
History of Present Illness H&P Date: 03/08/21 Chief Complaint: Dyspnea Patient is a 60-year-old male with a known history of MS at the age of 39 years, cognitive impairment, patient is bedridden, could only speak few words and also his head and also his eyes, dysphagia status post PEG tube placement, contractures, neurogenic bladder, history of multiple UTIs and pneumonias and seizures, sacral decubitus ulcers and history of ESBL E. coli urinary tract infection who is currently living at extended care facility was not brought to the hospital from his neurologist office. Patient was scheduled to have EEG and was found to have increased dyspnea and cough and was sent to ER. History of aspiration pneumonia as well as multiple urinary tract infections in the past. Otherwise patient does not have any fever or chills. Patient cannot provide any history at baseline. Chest x-ray showed there is increased atelectasis and interstitial infiltrate in the right lower lobe compared to old exam. No gross heart failure. Interstitial pulmonary markings generally increasing compared to old exam. Venous duplex of the left hand is negative for DVT. EKG showed normal sinus rhythm Patient is currently room air saturating at 97%. Patient was tachycardic with heart rate around 116. Lab data showed WBC 7.9 hemoglobin 12.9 platelets 430 Sodium 138 potassium 4.8 chloride 103 BUN 24 and creatinine 0.63 alk phos 151 Urinalysis showed cloudy, large leukocyte esterase elevated RBCs and WBCs. Coronavirus PCR not detected. Urine culture and blood culture is pending at this time. Review of Systems Complete review of systems could not be obtained from the patient. Past Medical History Past Medical History: Deep Vein Thrombosis (DVT), GERD/Reflux, Hypertension, Musculoskeletal Disorder, Neurologic Disorder, Pneumonia, Seizure Disorder, Skin Disorder Additional Past Medical History / Comment(s): Pt diagnosed with MS at the age of 39 yrs, eizure/pneumonia/UTI with sepsis/respirtory failure/vented, cognitive impairment, sister states when he is feeling well he could speak a few words/nod head appropriately/give thumbs up/roll eyes but when ill is nonverbal, pt has dysphagia/NPO with peg tube, contractures, last seizure 07/2020, trigeminal neuralgia, dysarthria/anarthria/neurogenic bladder with IDC-UTIs/sepsis, multipl e pneumonias, recent seizure-last one 07/03/20, incontinent of stool, pt has had decubitus ulcer coccyx-sister unsure of skin condition at this time, past anemia r/t heparin/epistaxiis which involved nasal packing/transfusions, DVT bilateral arms, hypoxia, oxygen at 2L/NC, L femoral head fracture History of Any Multi-Drug Resistant Organisms: ESBL, MRSA Date of last positivie culture/infection: 09/13/19-MRSA; 11/23/19 ESBL-E.coli MDRO Source:: Broch lavage-Mrsa; Urine -ESBL Past Surgical History: Tonsillectomy Additional Past Surgical History / Comment(s): Gastrostomy, peg tube, I&D coccyx decubitius, bronchoscopy, bilateral lasik eye surgery. Past Anesthesia/Blood Transfusion Reactions: No Reported Reaction Additional Past Anesthesia/Blood Transfusion Reaction / Comment(s): Pt has received blood in past without reaction. Smoking Status: Never smoker - Past Family History Father Family Medical History: Myocardial Infarction (ID) Mother Family Medical History: Hypertension, Myocardial Infarction (ID) Additional Family Medical History / Comment(s): Mother of a ID at the age of 73 yrs. Medications and Allergies Home Medications Medication Instructions Recorded Confirmed Type Cholecalciferol [Vitamin D3 (25 1,000 unit PEG/G-TUBE DAILY@0900 12/28/17 03/23/21 History Mcg = 1000 Iu)] Acetaminophen Oral Susp [Tylenol] 320 mg PEG/G-TUBE Q6H PRN 01/26/19 03/23/21 History Oxybutynin Chloride [Ditropan Oral 5 mg PEG/G-TUBE TID@0600,1400,2200 09/08/19 03/23/21 History Soln] Ipratropium-Albuterol Nebulize 3 ml INHALATION RT-Q6H PRN 12/16/19 03/23/21 History [Duoneb 0.5 mg-3 mg/3 ml Soln] Baclofen [Lioresal] 10 mg PEG/G-TUBE TID@0600,1400,2200 07/16/20 03/23/21 History carBAMazepine [TEGretol] 200 mg PEG/G-TUBE BID@0900,2100 07/30/20 03/23/21 History Scopolamine [Scopolamine 1 MG/72 1 patch TRANSDERM Q72H 09/07/20 03/23/21 History HR patch] Aspirin 81 mg PEG/G-TUBE DAILY@0900 11/27/20 03/23/21 History Cranberry Fruit Extract [Cranberry] 500 mg PEG/G-TUBE DAILY@0900 11/27/20 06/12/19 History amantadine HCL [Amantadine] 100 mg PEG/G-TUBE DAILY@0900 11/27/20 03/23/21 History Docusate Oral Soln [Colace Oral 100 mg PEG/G-TUBE BID@0900,2100 03/07/21 03/23/21 History Soln] Famotidine [Pepcid] 20 mg PEG/G-TUBE HS 03/07/21 03/23/21 History Lactulose 20 gm PEG/G-TUBE BID@0900,209903/07/21 03/23/21 History Magnesium Hydroxide [Milk of 7,200 mg PEG/G-TUBE Q72H PRN 03/07/21 03/23/21 History Magnesia Concentrate] Metoprolol Tartrate [Lopressor] 75 mg PEG/G-TUBE BID@0900,209903/07/21 03/23/21 History Lacosamide [Vimpat] 150 mg PEG/G-TUBE BID@0900,2100 #6 03/15/21 03/23/21 Rx tab 0.9 % Sodium Chloride [Sodium 10 ml IV Q8H 03/23/21 03/23/21 History Chloride Flush] guaiFENesin-DM 100-10MG/5ML 10 ml PEG/G-TUBE Q6H PRN 03/23/21 03/23/21 History [Robitussin DM] Allergies Allergy/AdvReac Type Severity Reaction Status Date / Time meropenem [From Merrem] Allergy Rash/Hives Verified 03/23/21 22:20 Physical Exam Vitals: Vital Signs Temp Pulse Pulse Resp BP BP Pulse Ox 03/08/21 08:00 98.2 F 116 H 21 153/101 96 03/08/21 05:46 104 H 18 122/87 98 03/08/21 01:34 16 03/08/21 01:31 98.3 F 89 16 145/93 99 03/07/21 22:46 77 18 143/66 97 03/07/21 19:59 89 18 136/76 95 03/07/21 16:34 20 03/07/21 16:05 98.2 F 78 20 158/93 97 Intake and Output 03/07/21 03/08/21 03/08/21 22:59 06:59 14:59 Other: Weight 68.039 kg 68.039 kg PHYSICAL EXAMINATION: Patient is lying in the bed comfortably, no acute distress, awake alert and orientedx0-1.Able to blink his eyes and nods his head sometimes.. HEENT: Normocephalic. Neck is supple. Pupils reactive. Nostrils clear. Oral cavity is moist. Ears reveal no drainage. Neck reveals no JVD, carotid bruits, or thyromegaly. CHEST EXAMINATION: Trachea is central. Symmetrical expansion. Bibasilar diminished sounds. No wheezing.. CARDIAC: Normal S1, S2 with no gallops. No murmurs ABDOMEN: Soft. Bowel sounds normal. No organomegaly. No abdominal bruits. Sacral decubitus ulcers. Redness and skin excoriation around the PEG tube site. No purulent drainage noted. Extremities: reveal no edema. 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 Skin: No rash or skin lesions except as above Psychiatric: Musculoskeletal: No joint swelling. Results CBC & Chem 7: 03/15/21 05:54 03/15/21 05:54 Labs: Abnormal Lab Results - Last 24 Hours (Table) 03/07/21 03/07/21 03/07/21 Range/Units 17:27 17:27 17:27 Hgb 12.9 L (13.0-17.5) gm/dL MCHC 30.9 L (31.0-37.0) g/dL RDW 16.4 H (11.5-15.5) % APTT 21.6 L (22.0-30.0) sec Chloride (98-107) mmol/L Carbon Dioxide (22-30) mmol/L BUN (9-20) mg/dL Creatinine (0.66-1.25) mg/dL Glucose (74-99) mg/dL Alkaline Phosphatase (38-126) U/L Urine Protein Trace H (Negative) Ur Leukocyte Esterase Large H (Negative) Urine RBC 10 H (0-5) /hpf Urine WBC 26 H (0-5) /hpf Amorphous Sediment Rare H (None) /hpf Urine Bacteria Few H (None) /hpf 03/07/21 03/08/21 Range/Units 17:27 06:44 Hgb (13.0-17.5) gm/dL MCHC (31.0-37.0) g/dL RDW (11.5-15.5) % APTT (22.0-30.0) sec Chloride 112 H (98-107) mmol/L Carbon Dioxide 19 L (22-30) mmol/L BUN 24 H (9-20) mg/dL Creatinine 0.63 L 0.61 L (0.66-1.25) mg/dL Glucose 107 H (74-99) mg/dL Alkaline Phosphatase 151 H (38-126) U/L Urine Protein (Negative) Ur Leukocyte Esterase (Negative) Urine RBC (0-5) /hpf Urine WBC (0-5) /hpf Amorphous Sediment (None) /hpf Urine Bacteria (None) /hpf Microbiology - Last 24 Hours (Table) 03/07/21 17:27 Urine Culture - Preliminary Urine,Clean Catch Thrombosis Risk Factor Assmnt - DVT/VTE Prophylaxis DVT/VTE Prophylaxis: Pharmacologic Prophylaxis ordered - Choose All That Apply Any of the Below Risk Factors Present?: Yes Each Factor Represents 1 point: Medical pt on bed rest, Serious lung disease incl. pneumonia (< 1month) Other Risk Factors: Yes Each Risk Factor Represents 2 Points: Age 61-74 years, Patient confined to bed Other congenital or acquired thrombophilia - If yes, enter type in comment: No Thrombosis Risk Factor Assessment Total Risk Factor Score: 6 Thrombosis Risk Factor Assessment Level: High Risk Assessment and Plan Assessment: Worsening shortness of breath and cough/right lower lobe pneumonia. Possible aspiration. cellulitis around PEG tube site with increasing redness. Multiple sclerosis history. Dysphagia, dysarthria and bedridden Seizure disorder History of multiple pneumonias and ESBL E. coli urinary tract infections in the past Neurogenic bladder DVT prophylaxis with heparin subcu Plan: Patient will be continued on broad-spectrum antibiotics and IV hydration with normal saline at 75 cc/h. Monitor at lites and renal function. Follow-up urine culture and blood cultures. Continue with home medications and wound care. ID will be consulted and further recommendations based on clinical course. Time with Patient: Greater than 30
[2021-03-08] MEDS: HEPARIN SODIUM,PORCINE/PF 5,000 UNIT/0.5 ML SYRINGE SQ SCH (23:28)
[2021-03-09] MEDS: CEFEPIME 2 GM in SODIUM CHLORIDE 0.9% 100 ML IVPB SCH ×3 (04:36→20:23)
[2021-03-09] MEDS: BACLOFEN 10 MG TAB PEG/G-TUBE SCH ×3 (04:53→22:30)
[2021-03-09] MEDS: OXYBUTYNIN CHLORIDE 5 MG TAB PEG/G-TUBE SCH ×3 (04:53→22:32)
[2021-03-09] MEDS: ERYTHROMYCIN 5 MG/GM OPHTH OINT 3.5 GM TUBE BOTH EYES SCH ×3 (04:53→16:12)
[2021-03-09] MEDS ORDERED: VANCOMYCIN TROUGH DUE 1 EACH MISC MISCELLANE ONE (05:00)
[2021-03-09 07:52] LABS: ALT 12 U/L (4-49); AST 21 U/L (17-59); African American GFR (CKD) >90 (>60 ml/min/1.73 sqM); Albumin 3.1 g/dL (3.5-5.0); Albumin/Globulin Ratio 0.9; Alkaline Phosphatase 100 U/L (38-126); Anion Gap 7 mmol/L; Blood Urea Nitrogen 15 mg/dL (9-20); Calcium 8.6 mg/dL (8.4-10.2); Carbon Dioxide 20 mmol/L (22-30); Chloride 112 mmol/L (98-107); Globulin 3.5 g/dL; Glucose 77 mg/dL (74-99); Non-African American GFR(CKD) >90 (>60 ml/min/1.73 sqM); Potassium 4.2 mmol/L (3.5-5.1); Sodium 139 mmol/L (137-145); Total Bilirubin 0.3 mg/dL (0.2-1.3); Total Protein 6.6 g/dL (6.3-8.2)
[2021-03-09] MEDS: METOPROLOL TARTRATE 25 MG TAB PEG/G-TUBE SCH ×2 (07:58→22:30)
[2021-03-09] MEDS: LACTULOSE 20 GM/30 ML CUP PEG/G-TUBE SCH ×2 (07:58→22:33)
[2021-03-09 07:59] LABS: Anisocytosis Slight; Basophils % (A) 1 %; Eosinophils # (A) 0.5 k/uL (0-0.7); Eosinophils % (A) 7 %; HCT 40.2 % (39.0-53.0); HGB 12.3 gm/dL (13.0-17.5); Hypochromasia Marked; Lymphocytes # (A) 1.1 k/uL (1.0-4.8); Lymphocytes % (A) 16 %; MCH 26.4 pg (25.0-35.0); MCHC 30.8 g/dL (31.0-37.0); MCV 85.9 fL (80.0-100.0); Mean Platelet Volume 9.5; Monocytes # (A) 0.5 k/uL (0-1.0); Monocytes % (A) 7 %; Neutrophils # (A) 4.5 k/uL (1.3-7.7); Neutrophils % (A) 68 %; Platelet Count 309 k/uL (150-450); RBC 4.67 m/uL (4.30-5.90); RDW 16.2 % (11.5-15.5); WBC 6.7 k/uL (3.8-10.6)
[2021-03-09] MEDS: ASPIRIN 81 MG PEG/G-TUBE SCH (07:59)
[2021-03-09] MEDS: VANCOMYCIN 1,250 MG in SODIUM CHLORIDE 0.9% 250 ML IVPB SCH ×2 (07:59→20:23)
[2021-03-09] MEDS: CHOLECALCIFEROL 25 MCG (1000 IU) TABLET PEG/G-TUBE SCH (07:59)
[2021-03-09] MEDS: LACOSAMIDE 150 MG TABLET PEG/G-TUBE SCH ×2 (07:59→22:30)
[2021-03-09] MEDS: carBAMazepine 200 MG TAB PEG/G-TUBE SCH ×2 (07:59→22:33)
[2021-03-09] MEDS: DOCUSATE ORAL SOLN 100 MG/10 ML CUP PEG/G-TUBE SCH ×2 (07:59→22:33)
[2021-03-09] MEDS: HEPARIN SODIUM,PORCINE/PF 5,000 UNIT/0.5 ML SYRINGE SQ SCH ×3 (08:00→22:33)
[2021-03-09] MEDS ORDERED: NON FORMULARY DRUG (Cranberry Fruit Extract [Cranberry] 500 MG Tablet) PEG/G-TUBE SCH (09:00)
--- NOTE | 2021-03-09 10:49 | CDI ---
Documentation Clarification Form Date: 03/09/2021 10:46:41 AM From: Martha Liu RN, CCDS Admit Date: 03/09/2021 09:06:00 AM Patient Name: Chris Marvin Visit Number: [id number] ATTENTION: The Clinical Documentation Specialists (CDI) and [facility] Coding Staff appreciate your assistance in clarifying documentation. Please respond to the clarification below the line at the bottom and electronically sign. The CDI & [facility] Coding staff will review the response and follow-up if needed. Please note: Queries are made part of the Legal Health Record. If you have any questions, please contact the author of this message via ITS. Dr. Yair Devlin stage 2 right heel pressure ulcer is documented by nursing as POA. Based on this information and the findings below, is there an additional diagnosis that is clinically appropriate for this patient? History/Risk Factors: Peg tube with tube feedings, bedridden, cognitive impairment, contractures, neurogenic bladder, Hx of UTI's with chronic IDC, sacral decub, chronic O2 @ 2L NC, anemia Clinical Indicators: Location: Right Heel Wound description: Stage 2 Treatment: ABD Pad dressing in place 03/07 Cefepime2 gm IVPB Q8 hrs. IV Vancomycin PTD Consults: Wound care consulted, had not yet assessed. Is there an additional diagnosis that is clinically appropriate for this patient? [ ] Right Heel Pressure Ulcer Stage 2 [ ] Other condition, please specify [ ] Unable to determine Clinical Definitions: Stage 1 Pressure Ulcer: intact skin, non-blanching redness of local area Stage 2 Pressure Ulcer: Partial thickness, loss of dermis, pink wound bed Stage 3 Pressure Ulcer: Full thickness tissue loss Stage 4 Pressure Ulcer: Full thickness tissue loss with exposed bone, tendon, or muscle. Unstageable pressure ulcer: Full thickness tissue loss in which the base of the ulcer is covered by slough (yellow, vaz, suarez, green or brown) and/or eschar (vaz, brown or black) in the wound bed. (Template Last Revised: November 2020) Right Heel Pressure Ulcer Stage 2 POA MTDD
--- NOTE | 2021-03-09 10:59 | P.CONS ---
History of Present Illness - Reason for Consult Consult date: 03/09/21 wound care - History of Present Illness This is a 60-year-old patient who is nonverbal a resident of an extended care facility who presents to the hospital with nonhealing ulcerations. Patient is being seen on 4 S. He is unable to answer questions. Patient has multiple ulcerations including multiple ulcerations to the abdomen that are Limited to skin breakdown, and to the right heel which is a nonhealing ulceration with fat layer exposure. Ulceration has serosanguineous drainage. Measuring approximate 1 x 1 x 0.3 cm. Past medical history significant for DVT, GERD, hypertension, MS, seizures, pneumonia, Review of systems: Unable to obtain due to patient's mental status Physical exam: General Appearance: Alert, cooperative, no distress, appears stated age. Skin: See HPI all other Skin color, texture, tugor normal, no rashes or lesions. Neurologic: Alert oriented x3 Assessment: 1. Right calcaneus pressure ulcer stage II 2. Nonhealing ulceration abdomen multiple sites Limited to skin breakdown Plan: 1. Right calcaneus: Apply absorptive silver, saline moistened gauze, border foam change Sunday. Utilize foam heel protectors. Turn patient every 2 hours. 2. Abdominal ulcerations: Apply triad gauze and secure with paper tape. Change daily. Thank for the consultation any questions contact the wound care center DNP note has been reviewed and discussed with Dr. Martin and the impression and plan of care has been directed as dictated. Past Medical History Past Medical History: Deep Vein Thrombosis (DVT), GERD/Reflux, Hypertension, Musculoskeletal Disorder, Neurologic Disorder, Pneumonia, Seizure Disorder, Skin Disorder Additional Past Medical History / Comment(s): Pt diagnosed with MS at the age of 39 yrs, eizure/pneumonia/UTI with sepsis/respirtory failure/vented, cognitive impairment, sister states when he is feeling well he could speak a few words/nod head appropriately/give thumbs up/roll eyes but when ill is nonverbal, pt has dysphagia/NPO with peg tube, contractures, last seizure 07/2020, trigeminal neuralgia, dysarthria/anarthria/neurogenic bladder with IDC-UTIs/sepsis, multiple pneumonias, recent seizure-last one 07/03/20, incontinent of stool, pt has had decubitus ulcer coccyx-sister unsure of skin condition at this time, past anemia r/t heparin/epistaxiis which involved nasal packing/transfusions, DVT bilateral arms, hypoxia, oxygen at 2L/NC, L femoral head fracture History of Any Multi-Drug Resistant Organisms: ESBL, MRSA Year Discovered:: 09/13/19-MRSA; 11/23/19 ESBL-E.coli MDRO Source:: Broch lavage-Mrsa; Urine -ESBL Past Surgical History: Tonsillectomy Additional Past Surgical History / Comment(s): Gastrostomy, peg tube, I&D coccyx decubitius, bronchoscopy, bilateral lasik eye surgery. Past Anesthesia/Blood Transfusion Reactions: No Reported Reaction Additional Past Anesthesia/Blood Transfusion Reaction / Comm: Pt has received blood in past without reaction. Smoking Status: Never smoker - Past Family History Father Family Medical History: Myocardial Infarction (OR) Mother Family Medical History: Hypertension, Myocardial Infarction (OR) Additional Family Medical History / Comment(s): Mother of a OR at the age of 73 yrs. Medications and Allergies Home Medications Medication Instructions Recorded Confirmed Type Cholecalciferol [Vitamin D3 (25 1,000 unit PEG/G-TUBE DAILY@0900 12/28/17 03/07/21 History Mcg = 1000 Iu)] guaiFENesin [guaiFENesin Oral 200 mg PEG/G-TUBE Q6H PRN 12/28/17 03/07/21 History Solution] Acetaminophen Oral Susp [Tylenol] 320 mg PEG/G-TUBE Q6H PRN 01/26/19 03/07/21 History Oxybutynin Chloride [Ditropan Oral 5 mg PEG/G-TUBE TID@0600,1400,2200 09/08/19 03/07/21 History Soln] Ipratropium-Albuterol Nebulize 3 ml INHALATION RT-Q6H PRN 12/16/19 03/07/21 History [Duoneb 0.5 mg-3 mg/3 ml Soln] Baclofen [Lioresal] 10 mg PEG/G-TUBE TID@0600,1400,2200 07/16/20 03/07/21 History carBAMazepine [TEGretol] 200 mg PEG/G-TUBE BID@0900,2100 07/30/20 03/07/21 History Scopolamine [Scopolamine 1 MG/72 1 patch TRANSDERM Q72H 09/07/20 03/07/21 History HR patch] Aspirin 81 mg PEG/G-TUBE DAILY@0900 11/27/20 03/07/21 History Cranberry Fruit Extract [Cranberry] 500 mg PEG/G-TUBE DAILY@0900 11/27/20 03/07/21 History amantadine HCL [Amantadine] 100 mg PEG/G-TUBE DAILY@0900 11/27/20 03/07/21 History Lacosamide [Vimpat] 150 mg PEG/G-TUBE BID@0900,2100 #6 12/03/20 03/07/21 Rx tab Docusate Oral Soln [Colace Oral 100 mg PEG/G-TUBE BID@0900,209903/07/21 03/07/21 History Soln] Famotidine [Pepcid] 20 mg PEG/G-TUBE HS 03/07/21 03/07/21 History Lactulose 20 gm PEG/G-TUBE BID@0900,209903/07/21 03/07/21 History Magnesium Hydroxide [Milk of 7,200 mg PEG/G-TUBE Q72H PRN 03/07/21 03/07/21 History Magnesia Concentrate] Metoprolol Tartrate [Lopressor] 75 mg PEG/G-TUBE BID@0900,209903/07/21 03/07/21 History Prostat Protein Supplement 30 ml PEG/G-TUBE BID@0900,209903/07/21 03/07/21 History Uti-Stat Cranberry Oral Supplement 30 ml PEG/G-TUBE BID@0900,209903/07/21 03/07/21 History Allergies Allergy/AdvReac Type Severity Reaction Status Date / Time meropenem [From Merrem] Allergy Rash/Hives Verified 03/07/21 21:35 Physical Exam Vitals: Vital Signs Temp Pulse Pulse Resp BP Pulse Ox 03/09/21 07:07 98.1 F 82 17 148/84 94 L 03/09/21 02:00 97.9 F 87 18 148/86 97 03/08/21 19:15 98.3 F 105 H 18 157/89 95 03/08/21 18:02 17 03/08/21 16:47 98.6 F 71 16 136/86 95 03/08/21 14:00 98.2 F 101 H 20 151/92 95 03/08/21 13:45 101 H 18 03/08/21 13:37 90 20 Intake and Output 03/08/21 03/09/21 03/09/21 22:59 06:59 14:59 Output Total 600 550 Balance -600 -550 Output: Urine 600 550 Other: Voiding Method Indwelling Catheter Weight 68.039 kg Results CBC & Chem 7: 03/09/21 06:53 03/09/21 06:53 Labs: Abnormal Lab Results - Last 24 Hours (Table) 03/09/21 03/09/21 Range/Units 06:53 06:53 Hgb 12.3 L (13.0-17.5) gm/dL MCHC 30.8 L (31.0-37.0) g/dL RDW 16.2 H (11.5-15.5) % Chloride 112 H (98-107) mmol/L Carbon Dioxide 20 L (22-30) mmol/L Albumin 3.1 L (3.5-5.0) g/dL Microbiology - Last 24 Hours (Table) 03/09/21 04:50 Wound Culture - Preliminary Abdomen 03/09/21 04:50 Anaerobic Culture - Preliminary Abdomen 03/07/21 17:27 Urine Culture - Preliminary Urine,Clean Catch Gram Neg Bacilli 03/07/21 18:45 Blood Culture - Preliminary Blood No Growth after 24 hours Assessment and Plan (1) Pressure ulcer of right heel, stage 2 Current Visit: Yes Status: Acute Code(s): L89.612 - PRESSURE ULCER OF RIGHT HEEL, STAGE 2 SNOMED Code(s): 975693897 (2) Non-pressure chronic ulcer of skin of other sites limited to breakdown of skin Current Visit: Yes Status: Acute Code(s): L98.491 - NON-PRS CHRONIC ULCER SKIN/ SITES LIMITED TO BRKDWN SKIN SNOMED Code(s): 99436310
--- NOTE | 2021-03-09 11:20 | CDI ---
Documentation Clarification Form Date: 03/09/2021 10:53:14 AM From: Martha Liu RN, CCDS Admit Date: 03/09/2021 09:06:00 AM Patient Name: Chris Marvin Visit Number: [id number] ATTENTION: The Clinical Documentation Specialists (CDI) and [facility] Coding Staff appreciate your assistance in clarifying documentation. Please respond to the clarification below the line at the bottom and electronically sign. The CDI & [facility] Coding staff will review the response and follow-up if needed. Please note: Queries are made part of the Legal Health Record. If you have any questions, please contact the author of this message via ITS. Dr. Yair Alvarez Your patient has documented home oxygen @ 2L/NC. Based on this information and the findings below, is there an additional diagnosis that is clinically appropriate for this patient? History/Risk Factors: recurrent pneumonia's, MS, SZ, respiratory failure with mechanical ventilation, dysphagia, NPO with Peg tube, contractures, recurrent UTI's with IDC, hypoxia Tobacco use: Never Home oxygen: 2L NC Clinical Indicators: 1605 Admission Vital signs: Temp 98.2, HR 78, RR 20, B/P 158/93, Spo2 93% RA 03/08 H&P: Lung/Breathing assessment: CHEST EXAMINATION: Trachea is central. Symmetrical expansion. Bibasilar diminished sounds. No wheezing." ABG/CBG: not done Treatment: Breathing TX: Duoneb Q 6 hrs. PRN SOB Pulse ox per unit protocol Patient is currently maintained on room air Is there an additional diagnosis that is clinically appropriate for this patient? [ ] Chronic Hypoxic Respiratory Failure [ ] Chronic Hypercapnic respiratory Failure [ ] Other Diagnosis, please specify [ ] Unable to determine (Template Last Revised: November 2020) Chronic Hypoxic Respiratory Failure MTDD
[2021-03-09] MEDS: SODIUM CHLORIDE 0.9% 1,000 ML IV SCH (11:22)
--- NOTE | 2021-03-09 11:33 | CDI ---
Documentation Clarification Form Date: 03/09/2021 11:21:31 AM From: Martha Liu RN, CCDS Admit Date: 03/09/2021 09:06:00 AM Patient Name: Chris Marvin Visit Number: [id number] ATTENTION: The Clinical Documentation Specialists (CDI) and [facility] Coding Staff appreciate your assistance in clarifying documentation. Please respond to the clarification below the line at the bottom and electronically sign. The CDI & [facility] Coding staff will review the response and follow-up if needed. Please note: Queries are made part of the Legal Health Record. If you have any questions, please contact the author of this message via ITS. Dr. Yair Alvarez Patient is noted to have a positive U/A and urine culture growing Gram Negative Bacilli. Additional clarification regarding the clinical significance and etiology of the abnormal urine labs. History/Risk Factors: Neurogenic bladder with IDC-UTIs, MS, bedridden, NPO with PEG Tube, nonverbal, seizures, hypoxia, home o2 @ 2L, ESBL/MRSA Clinical Indicators: 03/07 ED Note: HPI: "He does have a history of aspiration pneumonia as well as drug resistant UTI. He has an indwelling Stein catheter." 03/07 Urinalysis: Trace Protein, Positive Nitrate, Large Leukocyte Esterase, 10 RBC, 26 WBC, rare Amorphous, few urine bacteria 03/07 Urine culture: Gram negative bacilli 03/07 & 03/08 WBC WNL Treatment: IV Vancomycin PTD IV Cefepime 2 gm IVPB Q8hrs. 7 500cc IVF Bolus 0.9% NS followed by 75 cc/hr. Cranberry fruit extract 500 mg via PEG QD @ home UTI-stat Cranberry oral supplement 30 ml PO BID via PEG @ home Please clarify the etiology of the clinical significance of the abnormal U/A and culture along with etiology, if known: [ ] UTI r/t Stein catheter [ ] UTI not related to catheter [ ] Other condition, please specify [ ] Unable to determine (Template Last Revised: November 2020) UTI r/t Stein catheter MTDD
[2021-03-09] MEDS: HYDROPHILIC CREAM 180 GM TUBE TOPICAL SCH (13:18)
--- NOTE | 2021-03-09 22:14 | P.PN ---
Subjective Progress Note Date: 03/09/21 Principal diagnosis: Pneumonia Gram-negative bacilli urinary tract infection. Patient is a 60-year-old male with a known history of MS at the age of 39 years, cognitive impairment, patient is bedridden, could only speak few words and also his head and also his eyes, dysphagia status post PEG tube placement, contractures, neurogenic bladder, history of multiple UTIs and pneumonias and seizures, sacral decubitus ulcers and history of ESBL E. coli urinary tract infection who is currently living at extended care facility was not brought to the hospital from his neurologist office. Patient was scheduled to have EEG and was found to have increased dyspnea and cough and was sent to ER. History of aspiration pneumonia as well as multiple urinary tract infections in the past. Otherwise patient does not have any fever or chills. Patient cannot provide any history at baseline. Chest x-ray showed there is increased atelectasis and interstitial infiltrate in the right lower lobe compared to old exam. No gross heart failure. Interstitial pulmonary markings generally increasing compared to old exam. Venous duplex of the left hand is negative for DVT. EKG showed normal sinus rhythm Patient is currently room air saturating at 97%. Patient was tachycardic with heart rate around 116. Lab data showed WBC 7.9 hemoglobin 12.9 platelets 430 Sodium 138 potassium 4.8 chloride 103 BUN 24 and creatinine 0.63 alk phos 151 Urinalysis showed cloudy, large leukocyte esterase elevated RBCs and WBCs. Coronavirus PCR not detected. Urine culture and blood culture is pending at this time. 03/09/2021 Patient is currently resting in the bed. Mentation is at baseline. Pulse ox is 98% on room air. No cough noted at this time. Patient is being continued antibiotics at home vancomycin and cefepime for possible pneumonia and also gram-negative bacilli urinary tract infection. Patient is getting wound care. No episodes of vomiting. No diarrhea. Urine output is adequate. Laboratory data reviewed. Current medications reviewed. Objective - Vital Signs Vital signs: Vital Signs Temp 98.4 F 03/09/21 13:46 Pulse 107 H 03/09/21 13:46 Resp 18 03/09/21 13:46 BP 124/83 03/09/21 13:46 Pulse Ox 96 03/09/21 13:46 Intake & Output 06/08/21 06/09/21 06/09/21 18:59 06:59 18:59 Output Total 1600 550 Balance -1600 -550 Weight 68.039 kg 68.039 kg Output: Urine 1600 550 Other: Voiding Method Indwelling Catheter Indwelling Catheter Indwelling Catheter # Bowel Movements 1 - Labs CBC & Chem 7: 03/09/21 06:53 03/09/21 06:53 Labs: Abnormal Lab Results - Last 24 Hours (Table) 03/09/21 03/09/21 Range/Units 06:53 06:53 Hgb 12.3 L (13.0-17.5) gm/dL MCHC 30.8 L (31.0-37.0) g/dL RDW 16.2 H (11.5-15.5) % Chloride 112 H (98-107) mmol/L Carbon Dioxide 20 L (22-30) mmol/L Albumin 3.1 L (3.5-5.0) g/dL Microbiology - Last 24 Hours (Table) 03/09/21 04:50 Gram Stain - Preliminary Abdomen Wound Culture - Preliminary 03/09/21 04:50 Anaerobic Culture - Preliminary Abdomen 03/07/21 17:27 Urine Culture - Preliminary Urine,Clean Catch Gram Neg Bacilli 03/07/21 18:45 Blood Culture - Preliminary Blood No Growth after 24 hours Assessment and Plan Assessment: Worsening shortness of breath and cough/right lower lobe pneumonia. Possible aspiration pneumonia. multiple ulcerations with cellulitis around PEG tube site with increasing redness. Right calcaneu stage II pressure ulcer. Nonhealing ulcerations on the anterior abdominal wall. Multiple sclerosis history. Dysphagia, dysarthria and bedridden Seizure disorder History of multiple pneumonias and ESBL E. coli urinary tract infections in the past Neurogenic bladder DVT prophylaxis with heparin subcu Plan: Patient will be continued on broad-spectrum antibiotics and IV hydration with normal saline at 75 cc/h. Monitor at lites and renal function. Follow-up urine culture and blood cultures. Continue with home medications and wound care. ID was be consulted and further recommendations based on clinical course. Time with Patient: Greater than 30
--- NOTE | 2021-03-09 22:29 | CONS ---
CONSULTATION DATE OF SERVICE: 03/09/2021. REASON FOR CONSULTATION: Pneumonia and urinary tract infection. HISTORY OF PRESENT ILLNESS: The patient is a 60-year-old male with past medical history significant for MS in this patient who is bed-bound. Did have a history of recurrent pneumonia and urinary tract infection. The patient apparently was undergoing EEG at the neurology office. The patient was noticed to have increasing cough and dyspnea. Subsequently the patient was sent to the ER for further evaluation. Patient presented to the hospital 2 days ago. The patient on arrival to the ER was afebrile and no fever has been recorded subsequently. The patient did have a normal white count with no left shift. Kidney function has been normal. Did have positive UA with large leukocyte esterase, 10 WBCs. Urine is currently showing a Gram-negative. The patient also had chest x-ray showing increasing right lower lobe. The patient has been treated with cefepime and vancomycin. Infectious disease was consulted regarding any further management of antibiotic therapy. Most of the information has been obtained from review of the chart, talking to the nursing staff as the patient himself not able to provide any history. REVIEW OF SYSTEMS: Positive points have been mentioned in HPI. Rest of systems are negative. PAST MEDICAL HISTORY: DVT, gastroesophageal reflux disease, hypertension, pneumonia, recurrent UTIs. PAST SURGICAL HISTORY: Tonsillectomy, gastrostomy tube placement, I and D of the coccyx wound, bilateral lid surgery eye. SOCIAL HISTORY: Currently a [facility] resident. No smoking, drinking or drug use. FAMILY HISTORY: Father with history of SD. Mother history of hypertension and SD. ALLERGIES: MEROPENEM. MEDICATIONS: The patient is currently on: Tylenol, DuoNeb, aspirin, baclofen, Tegretol, cefepime 2 g q.8, vitamin D3, Pepcid, Robitussin, heparin, lactulose, milk of magnesia, Lopressor, vancomycin, pharmacy to dose. PHYSICAL EXAMINATION: Blood pressure is 124/83, pulse of 107, temperature 98.4. He is 96% on room air. General description is a middle-aged male lying in bed in no distress. No tachypnea or accessory muscles of respiration use. HEENT: Examination shows no pallor or scleral icterus. Oral mucous membranes dry. NECK: Trachea central. No thyromegaly. LUNGS unlabored breathing, decreased breath sounds in the base, with no wheeze. Heart S1, S2. Regular rate and rhythm. ABDOMEN: Soft, no tenderness. No guarding. No rigidity. EXTREMITIES: No edema of the feet. Examination of the : He did have a stage II pressure ulcer. No cellulitis. NEUROLOGICAL: Patient is awake, nonverbal. Orientation could not be determined. LABS: Hemoglobin is 12.8, white count 7.8. BUN of 24, creatinine 0.63. Electrolytes have been normal. Urine was positive. Chest report mentioned above. DIAGNOSTIC IMPRESSION AND PLAN: 1. Patient admitted to the hospital with increasing cough and did have increasing infiltrate right lower lobe with concern for possible nosocomial pneumonia. This patient has been previously infected and colonized with multidrug resistant pathogen. 2. Did have a positive UA with concern for possible wound colonization versus the urinary tract infection. PLAN: 1. We will try to obtain sputum for Gram stain and culture. 2. Patient to continue with cefepime and vancomycin while waiting for the culture to finalize. 3. We will follow on his clinical condition and further adjust medication if needed. Thank you for this consultation. Will follow this patient along with you. MMODL / IJN: [id number] /
[2021-03-09] MEDS: FAMOTIDINE 20 MG TAB PEG/G-TUBE SCH (22:30)
[2021-03-10] MEDS: ERYTHROMYCIN 5 MG/GM OPHTH OINT 3.5 GM TUBE BOTH EYES SCH ×3 (00:23→11:44)
[2021-03-10] MEDS: SODIUM CHLORIDE 0.9% 1,000 ML IV SCH (00:25)
[2021-03-10] MEDS: CEFEPIME 2 GM in SODIUM CHLORIDE 0.9% 100 ML IVPB SCH ×3 (04:37→20:17)
[2021-03-10] MEDS: OXYBUTYNIN CHLORIDE 5 MG TAB PEG/G-TUBE SCH ×2 (05:39→14:33)
[2021-03-10] MEDS: BACLOFEN 10 MG TAB PEG/G-TUBE SCH ×2 (05:39→14:33)
[2021-03-10] MEDS: VANCOMYCIN 1,250 MG in SODIUM CHLORIDE 0.9% 250 ML IVPB SCH ×2 (08:34→20:17)
[2021-03-10] MEDS: HEPARIN SODIUM,PORCINE/PF 5,000 UNIT/0.5 ML SYRINGE SQ SCH ×2 (08:34→15:29)
[2021-03-10] MEDS: ASPIRIN 81 MG PEG/G-TUBE SCH (08:35)
[2021-03-10] MEDS: CHOLECALCIFEROL 25 MCG (1000 IU) TABLET PEG/G-TUBE SCH (08:35)
[2021-03-10] MEDS: LACOSAMIDE 150 MG TABLET PEG/G-TUBE SCH (08:35)
[2021-03-10] MEDS: METOPROLOL TARTRATE 25 MG TAB PEG/G-TUBE SCH (08:35)
[2021-03-10] MEDS: SCOPOLAMINE 1.5MG/72HR PATCH TRANSDERM SCH (08:36)
[2021-03-10] MEDS: LACTULOSE 20 GM/30 ML CUP PEG/G-TUBE SCH (08:37)
[2021-03-10] MEDS: carBAMazepine 200 MG TAB PEG/G-TUBE SCH (08:37)
[2021-03-10] MEDS: DOCUSATE ORAL SOLN 100 MG/10 ML CUP PEG/G-TUBE SCH (08:37)
[2021-03-10] MEDS: HYDROPHILIC CREAM 180 GM TUBE TOPICAL SCH (08:42)
[2021-03-10 09:11] LABS: African American GFR (CKD) >90 (>60 ml/min/1.73 sqM); Non-African American GFR(CKD) >90 (>60 ml/min/1.73 sqM)
[2021-03-10] MEDS: ACETAMINOPHEN ORAL SUSP 160 MG/5 ML CUP PEG/G-TUBE PRN (15:22)
--- NOTE | 2021-03-10 23:39 | PN ---
PROGRESS NOTE DATE OF SERVICE: 03/10/2021 REASON FOR FOLLOWUP: Pneumonia and UTI. INTERVAL HISTORY: Patient is afebrile. The patient is currently breathing comfortably on room air. No worsening cough or vomiting or diarrhea has been reported by the nursing staff. The patient himself unable to provide any history. PHYSICAL EXAMINATION: Blood pressure 121/76, pulse of 82, temperature 98.9. He is 96% on room air. General description: The patient is a middle-aged male lying in bed in no distress. Respiratory system: Unlabored breathing, decreased breath sounds at the base. No wheeze. HEART: S1, S2. Regular rate and rhythm. Abdomen soft, no tenderness. LABS: Creatinine 0.61. Urine showing Pseudomonas. Abdominal culture presumptive MRSA. DIAGNOSTIC IMPRESSION AND PLAN: Patient admitted to the hospital with congested cough, fever, concerning for pneumonia and urinary tract infection in this patient showing a Pseudomonas which is covered with cefepime. Patient already abdominal culture showing MRSA and is covered with vancomycin. Will continue to monitor the patient's clinical course closely and continue supportive care. MMODL / IJN: [id number] /
[2021-03-11] MEDS: HEPARIN SODIUM,PORCINE/PF 5,000 UNIT/0.5 ML SYRINGE SQ SCH ×4 (00:08→23:04)
[2021-03-11] MEDS: FAMOTIDINE 20 MG TAB PEG/G-TUBE SCH ×2 (00:08→23:04)
[2021-03-11] MEDS: ERYTHROMYCIN 5 MG/GM OPHTH OINT 3.5 GM TUBE BOTH EYES SCH ×6 (00:08→23:40)
[2021-03-11] MEDS: guaiFENesin SYRUP 100MG/5ML 200 MG/10 ML CUP PEG/G-TUBE PRN ×3 (00:08→23:04)
[2021-03-11] MEDS: DOCUSATE ORAL SOLN 100 MG/10 ML CUP PEG/G-TUBE SCH ×3 (00:08→23:06)
[2021-03-11] MEDS: LACTULOSE 20 GM/30 ML CUP PEG/G-TUBE SCH ×3 (00:08→23:04)
[2021-03-11] MEDS: carBAMazepine 200 MG TAB PEG/G-TUBE SCH ×3 (00:09→23:05)
[2021-03-11] MEDS: METOPROLOL TARTRATE 25 MG TAB PEG/G-TUBE SCH ×3 (00:09→23:04)
[2021-03-11] MEDS: OXYBUTYNIN CHLORIDE 5 MG TAB PEG/G-TUBE SCH ×4 (00:09→23:05)
[2021-03-11] MEDS: BACLOFEN 10 MG TAB PEG/G-TUBE SCH ×4 (00:09→23:04)
[2021-03-11] MEDS: LACOSAMIDE 150 MG TABLET PEG/G-TUBE SCH ×3 (00:09→23:05)
[2021-03-11] MEDS: ACETAMINOPHEN ORAL SUSP 160 MG/5 ML CUP PEG/G-TUBE PRN ×2 (05:45→23:06)
[2021-03-11] MEDS: SODIUM CHLORIDE 0.9% 1,000 ML IV SCH ×3 (05:45→20:24)
[2021-03-11] MEDS: CEFEPIME 2 GM in SODIUM CHLORIDE 0.9% 100 ML IVPB SCH ×3 (05:45→23:03)
[2021-03-11] MEDS ORDERED: VANCOMYCIN TROUGH DUE 1 EACH MISC MISCELLANE ONE (07:00)
[2021-03-11 07:38] LABS: Anisocytosis Slight; Basophils % (A) 1 %; Eosinophils # (A) 0.6 k/uL (0-0.7); Eosinophils % (A) 8 %; HCT 34.5 % (39.0-53.0); HGB 11.1 gm/dL (13.0-17.5); Hypochromasia Slight; Lymphocytes # (A) 1.1 k/uL (1.0-4.8); Lymphocytes % (A) 16 %; MCH 26.4 pg (25.0-35.0); MCHC 32.2 g/dL (31.0-37.0); Mean Platelet Volume 7.3; Monocytes # (A) 0.5 k/uL (0-1.0); Monocytes % (A) 7 %; Neutrophils # (A) 4.6 k/uL (1.3-7.7); Neutrophils % (A) 67 %; Platelet Count 381 k/uL (150-450); RBC 4.21 m/uL (4.30-5.90); RDW 16.2 % (11.5-15.5); WBC 6.8 k/uL (3.8-10.6)
[2021-03-11 08:00] LABS: African American GFR (CKD) >90 (>60 ml/min/1.73 sqM); Anion Gap 5 mmol/L; Blood Urea Nitrogen 17 mg/dL (9-20); Calcium 8.2 mg/dL (8.4-10.2); Carbon Dioxide 21 mmol/L (22-30); Chloride 112 mmol/L (98-107); Glucose 115 mg/dL (74-99); Non-African American GFR(CKD) >90 (>60 ml/min/1.73 sqM); Potassium 4.2 mmol/L (3.5-5.1); Sodium 138 mmol/L (137-145)
[2021-03-11] MEDS: ASPIRIN 81 MG PEG/G-TUBE SCH (09:04)
[2021-03-11] MEDS: CHOLECALCIFEROL 25 MCG (1000 IU) TABLET PEG/G-TUBE SCH (09:05)
[2021-03-11] MEDS: HYDROPHILIC CREAM 180 GM TUBE TOPICAL SCH (09:11)
[2021-03-11] MEDS: VANCOMYCIN 1,250 MG in SODIUM CHLORIDE 0.9% 250 ML IVPB SCH ×2 (09:26→20:25)
--- NOTE | 2021-03-11 18:43 | PN ---
PROGRESS NOTE DATE OF SERVICE: 03/11/2021 REASON FOR FOLLOWUP: Pneumonia and urinary tract infection. INTERVAL HISTORY: Patient is currently afebrile. The patient is awake, unable to provide any history. No nausea, vomiting, diarrhea or any other changes reported by the nursing staff. The patient himself unable to provide any history. PHYSICAL EXAMINATION: Blood pressure 137/87, pulse of 79, temperature 98.6. He is 97% on room air. General description: The patient is a middle-aged male lying in bed in no distress. Respiratory system: Unlabored breathing. Clear to auscultation anteriorly. Heart S1, S2. Regular rate and rhythm. Abdomen is soft. No tenderness. EXTREMITIES: No edema of the feet. LABS: Hemoglobin 11.1, white count 6.8. BUN of 17, creatinine 0.60. DIAGNOSTIC IMPRESSION AND PLAN: Patient admitted to the hospital with congested cough and hypoxemia concerning for a pneumonia. Urine showing Pseudomonas. Abdominal wound showing MRSA. The patient is covered with cefepime and vancomycin to continue while monitoring clinical course closely. Continue supportive care. MMODL / IJN: [id number] /
--- NOTE | 2021-03-12 01:31 | P.PN ---
Subjective Progress Note Date: 03/10/21 Principal diagnosis: Pneumonia Gram-negative bacilli urinary tract infection. Patient is a 60-year-old male with a known history of MS at the age of 39 years, cognitive impairment, patient is bedridden, could only speak few words and also his head and also his eyes, dysphagia status post PEG tube placement, contractures, neurogenic bladder, history of multiple UTIs and pneumonias and seizures, sacral decubitus ulcers and history of ESBL E. coli urinary tract infection who is currently living at extended care facility was not brought to the hospital from his neurologist office. Patient was scheduled to have EEG and was found to have increased dyspnea and cough and was sent to ER. History of aspiration pneumonia as well as multiple urinary tract infections in the past. Otherwise patient does not have any fever or chills. Patient cannot provide any history at baseline. Chest x-ray showed there is increased atelectasis and interstitial infiltrate in the right lower lobe compared to old exam. No gross heart failure. Interstitial pulmonary markings generally increasing compared to old exam. Venous duplex of the left hand is negative for DVT. EKG showed normal sinus rhythm Patient is currently room air saturating at 97%. Patient was tachycardic with heart rate around 116. Lab data showed WBC 7.9 hemoglobin 12.9 platelets 430 Sodium 138 potassium 4.8 chloride 103 BUN 24 and creatinine 0.63 alk phos 151 Urinalysis showed cloudy, large leukocyte esterase elevated RBCs and WBCs. Coronavirus PCR not detected. Urine culture and blood culture is pending at this time. 03/09/2021 Patient is currently resting in the bed. Mentation is at baseline. Pulse ox is 98% on room air. No cough noted at this time. Patient is being continued antibiotics at home vancomycin and cefepime for possible pneumonia and also gram-negative bacilli urinary tract infection. Patient is getting wound care. No episodes of vomiting. No diarrhea. Urine output is adequate. Laboratory data reviewed. 03/10/2021 Patient is currently lying in the bed. Nonverbal and bedridden at baseline. Continued on antibiotics on vancomycin and cefepime. Wound cultures at the PEG tube site showed MRSA and urine culture showed Pseudomonas. ID is following. Laboratory data reviewed. Patient has been afebrile. Tolerating PEG tube feeding. Continued on IV hydration. Current medications reviewed. Objective - Vital Signs Vital signs: Vital Signs Temp 98.9 F 03/10/21 14:00 Pulse 82 03/10/21 14:00 Resp 14 03/10/21 14:00 BP 121/76 03/10/21 14:00 Pulse Ox 96 03/10/21 14:00 Intake & Output 03/10/21 03/10/21 03/11/21 06:59 18:59 06:59 Output Total 1400 1100 Balance -1400 -1100 Weight 75 kg Output: Urine 1400 1100 Other: Voiding Method Indwelling Catheter Indwelling Catheter # Bowel Movements 1 - Exam PHYSICAL EXAMINATION: Patient is lying in the bed comfortably, no acute distress, awake alert and orientedx0-1.Able to blink his eyes and nods his head sometimes.. HEENT: Normocephalic. Neck is supple. Pupils reactive. Nostrils clear. Oral cavity is moist. Ears reveal no drainage. Neck reveals no JVD, carotid bruits, or thyromegaly. CHEST EXAMINATION: Trachea is central. Symmetrical expansion. Bibasilar diminished sounds. No wheezing.. CARDIAC: Normal S1, S2 with no gallops. No murmurs ABDOMEN: Soft. Bowel sounds normal. No organomegaly. No abdominal bruits. Sacral decubitus ulcers. Redness and skin excoriation around the PEG tube site. No purulent drainage noted. Extremities: reveal no edema. 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 Skin: No rash or skin lesions except as above Psychiatric: Musculoskeletal: No joint swelling. - Labs CBC & Chem 7: 03/11/21 07:14 03/11/21 07:14 Labs: Abnormal Lab Results - Last 24 Hours (Table) 03/10/21 Range/Units 08:35 Creatinine 0.61 L (0.66-1.25) mg/dL Microbiology - Last 24 Hours (Table) 03/09/21 04:50 Gram Stain - Preliminary Abdomen Wound Culture - Preliminary Presumptive MRSA 03/07/21 17:27 Urine Culture - Preliminary Urine,Clean Catch Pseudomonas aeruginosa 03/07/21 18:45 Blood Culture - Preliminary Blood No Growth after 48 hours Assessment and Plan Assessment: Worsening shortness of breath and cough/right lower lobe pneumonia. Possible aspiration pneumonia. multiple ulcerations with cellulitis around PEG tube site with increasing redness.Wound cultures growing MRSA. Pseudomonas urinary tract infection Right calcaneu stage II pressure ulcer. Nonhealing ulcerations on the anterior abdominal wall. Multiple sclerosis history. Dysphagia, dysarthria and bedridden Seizure disorder History of multiple pneumonias and ESBL E. coli urinary tract infections in the past Neurogenic bladder DVT prophylaxis with heparin subcu Plan: Patient will be continued on broad-spectrum antibiotics and IV hydration with normal saline at 75 cc/h. Monitor at lites and renal function. Follow-up urine culture and blood cultures. Continue with home medications and wound care. ID is following and further recommendations based on clinical course. Time with Patient: Greater than 30
--- NOTE | 2021-03-12 01:35 | P.PN ---
Subjective Progress Note Date: 03/11/21 Principal diagnosis: Abd. Wound cultures growing MRSA. Pseudomonas urinary tract infection Patient is a 60-year-old male with a known history of MS at the age of 39 years, cognitive impairment, patient is bedridden, could only speak few words and also his head and also his eyes, dysphagia status post PEG tube placement, contractures, neurogenic bladder, history of multiple UTIs and pneumonias and seizures, sacral decubitus ulcers and history of ESBL E. coli urinary tract inf ection who is currently living at extended care facility was not brought to the hospital from his neurologist office. Patient was scheduled to have EEG and was found to have increased dyspnea and cough and was sent to ER. History of aspiration pneumonia as well as multiple urinary tract infections in the past. Otherwise patient does not have any fever or chills. Patient cannot provide any history at baseline. Chest x-ray showed there is increased atelectasis and interstitial infiltrate in the right lower lobe compared to old exam. No gross heart failure. Interstitial pulmonary markings generally increasing compared to old exam. Venous duplex of the left hand is negative for DVT. EKG showed normal sinus rhythm Patient is currently room air saturating at 97%. Patient was tachycardic with heart rate around 116. Lab data showed WBC 7.9 hemoglobin 12.9 platelets 430 Sodium 138 potassium 4.8 chloride 103 BUN 24 and creatinine 0.63 alk phos 151 Urinalysis showed cloudy, large leukocyte esterase elevated RBCs and WBCs. Coronavirus PCR not detected. Urine culture and blood culture is pending at this time. 03/09/2021 Patient is currently resting in the bed. Mentation is at baseline. Pulse ox is 98% on room air. No cough noted at this time. Patient is being continued antibiotics at home vancomycin and cefepime for possible pneumonia and also gram-negative bacilli urinary tract infection. Patient is getting wound care. No episodes of vomiting. No diarrhea. Urine output is adequate. Laboratory data reviewed. 03/10/2021 Patient is currently lying in the bed. Nonverbal and bedridden at baseline. Continued on antibiotics on vancomycin and cefepime. Wound cultures at the PEG tube site showed MRSA and urine culture showed Pseudomonas. ID is following. Laboratory data reviewed. Patient has been afebrile. Tolerating PEG tube feeding. Continued on IV hydration. 03/11/2021 Patient is currently lying in the bed. Nonverbal. Bedridden and contracted. Tolerating PEG tube feeding along with free water. Increase will be discontinued. Patient is on antibiotics involve vancomycin and cefepime.Wound cultures at the PEG tube site showed MRSA and urine culture showed Pseudomonas ID is following. Continue supportive care and anticipate discharge back to [facility] care facility with final antibiotic conditions. Patient has been explained. No episodes of vomiting. No diarrhea. Current medications reviewed. Objective - Vital Signs Vital signs: Vital Signs Temp 98.4 F 03/11/21 19:28 Pulse 76 03/11/21 19:28 Resp 18 03/11/21 19:28 BP 132/76 03/11/21 19:28 Pulse Ox 97 03/11/21 19:28 Intake & Output 03/11/21 03/11/21 03/12/21 06:59 18:59 06:59 Output Total 1500 Balance -1500 Weight 74 kg Output: Urine 1500 Other: Voiding Method Indwelling Catheter Indwelling Catheter - Exam PHYSICAL EXAMINATION: Patient is lying in the bed comfortably, no acute distress, awake alert and orientedx0-1.Able to blink his eyes and nods his head sometimes.. HEENT: Normocephalic. Neck is supple. Pupils reactive. Nostrils clear. Oral cavity is moist. Ears reveal no drainage. Neck reveals no JVD, carotid bruits, or thyromegaly. CHEST EXAMINATION: Trachea is central. Symmetrical expansion. Bibasilar d iminished sounds. No wheezing.. CARDIAC: Normal S1, S2 with no gallops. No murmurs ABDOMEN: Soft. Bowel sounds normal. No organomegaly. No abdominal bruits. Sacral decubitus ulcers. Redness and skin excoriation around the PEG tube site. No purulent drainage noted. Extremities: reveal no edema. 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 Skin: No rash or skin lesions except as above Psychiatric: Musculoskeletal: No joint swelling. - Labs CBC & Chem 7: 03/11/21 07:14 03/11/21 07:14 Labs: Abnormal Lab Results - Last 24 Hours (Table) 03/11/21 03/11/21 Range/Units 07:14 07:14 RBC 4.21 L (4.30-5.90) m/uL Hgb 11.1 L (13.0-17.5) gm/dL Hct 34.5 L (39.0-53.0) % RDW 16.2 H (11.5-15.5) % Chloride 112 H (98-107) mmol/L Carbon Dioxide 21 L (22-30) mmol/L Creatinine 0.60 L (0.66-1.25) mg/dL Glucose 115 H (74-99) mg/dL Calcium 8.2 L (8.4-10.2) mg/dL Microbiology - Last 24 Hours (Table) 03/07/21 18:45 Blood Culture - Preliminary Blood No Growth after 96 hours 03/09/21 04:50 Anaerobic Culture - Preliminary Abdomen 03/09/21 04:50 Gram Stain - Final Abdomen Wound Culture - Final Methicillin resist S. aureus Assessment and Plan Assessment: Worsening shortness of breath and cough/right lower lobe pneumonia. Possible aspiration pneumonia. multiple ulcerations with cellulitis around PEG tube site with increasing redness.Wound cultures growing MRSA. Pseudomonas urinary tract infection Right calcaneu stage II pressure ulcer. Nonhealing ulcerations on the anterior abdominal wall. Multiple sclerosis history. Dysphagia, dysarthria and bedridden Seizure disorder History of multiple pneumonias and ESBL E. coli urinary tract infections in the past Neurogenic bladder DVT prophylaxis with heparin subcu Plan: Patient will be continued on broad-spectrum antibiotics and IV hydration with normal saline at 75 cc/h. Monitor at lites and renal function. Follow-up urine culture and blood cultures. Continue with home medications and wound care. ID is following and further recommendations based on clinical course. Time with Patient: Greater than 30
[2021-03-12] MEDS: SODIUM CHLORIDE 0.9% 1,000 ML IV SCH ×2 (05:13→17:59)
[2021-03-12] MEDS: CEFEPIME 2 GM in SODIUM CHLORIDE 0.9% 100 ML IVPB SCH ×3 (05:16→22:37)
[2021-03-12] MEDS: BACLOFEN 10 MG TAB PEG/G-TUBE SCH ×3 (05:17→22:39)
[2021-03-12] MEDS: OXYBUTYNIN CHLORIDE 5 MG TAB PEG/G-TUBE SCH ×3 (05:17→22:38)
[2021-03-12] MEDS: ERYTHROMYCIN 5 MG/GM OPHTH OINT 3.5 GM TUBE BOTH EYES SCH ×4 (05:20→23:50)
[2021-03-12] MEDS: ASPIRIN 81 MG PEG/G-TUBE SCH (08:33)
[2021-03-12] MEDS: carBAMazepine 200 MG TAB PEG/G-TUBE SCH ×2 (08:33→22:39)
[2021-03-12] MEDS: DOCUSATE ORAL SOLN 100 MG/10 ML CUP PEG/G-TUBE SCH ×2 (08:33→22:42)
[2021-03-12] MEDS: HEPARIN SODIUM,PORCINE/PF 5,000 UNIT/0.5 ML SYRINGE SQ SCH ×3 (08:33→22:37)
[2021-03-12] MEDS: METOPROLOL TARTRATE 25 MG TAB PEG/G-TUBE SCH ×2 (08:33→22:37)
[2021-03-12] MEDS: LACTULOSE 20 GM/30 ML CUP PEG/G-TUBE SCH ×2 (08:33→22:37)
[2021-03-12] MEDS: LACOSAMIDE 150 MG TABLET PEG/G-TUBE SCH ×2 (08:33→22:38)
[2021-03-12] MEDS: CHOLECALCIFEROL 25 MCG (1000 IU) TABLET PEG/G-TUBE SCH (08:34)
[2021-03-12] MEDS: HYDROPHILIC CREAM 180 GM TUBE TOPICAL SCH (08:34)
[2021-03-12 11:47] LABS: Basophils # (A) 0.04 X 10*3/uL (0.00-0.10); Basophils % (A) 0.5 %; Eosinophils # (A) 0.48 X 10*3/uL (0.04-0.35); Eosinophils % (A) 6.2 %; HCT 39.5 % (39.6-50.0); Lymphocytes # (A) 1.19 X 10*3/uL (0.90-5.00); Lymphocytes % (A) 15.4 %; MCH 26.2 pg (27.0-32.0); MCHC 30.4 g/dL (32.0-37.0); MCV 86.2 fL (80.0-97.0); Mean Platelet Volume 10.8 fL (9.5-12.2); Monocytes # (A) 0.62 X 10*3/uL (0.20-1.00); Neutrophils # (A) 5.38 X 10*3/uL (1.80-7.70); Neutrophils % (A) 69.4 %; Platelet Count 379 X 10*3/uL (140-440); RBC 4.58 X 10*6/uL (4.40-5.60); RDW 16.4 % (11.5-14.5); WBC 7.75 X 10*3/uL (4.50-10.00)
[2021-03-12 12:04] LABS: African American GFR (CKD) 125.8 (60.0-200.0); Anion Gap 8.2 mmol/L (4.00-12.00); BUN/Creat Ratio 31.67 Ratio (12.00-20.00); Calcium 9.1 mg/dL (8.7-10.3); Carbon Dioxide 21.8 mmol/L (21.6-31.8); Non-African American GFR(CKD) 108.5 (60.0-200.0); Potassium 4.2 mmol/L (3.5-5.5)
--- NOTE | 2021-03-12 16:15 | P.PN ---
Subjective Progress Note Date: 03/12/21 Principal diagnosis: Abd. Wound cultures growing MRSA. Pseudomonas urinary tract infection Mr. 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 Patient is nonverbal and cannot provide history. The time of her admission chest x-ray showed atelectasis and interstitial infiltrate in the right lower lobe. Venous Doppler of the left hand was negative for DVT. Urine analysis was cloudy showing large leukocyte esterase and the cultures grew Pseudomonas and enterococcus faecalis. Patient also has abdominal wound and the cultures showing MRSA. On 03/12/2021 - patient is seen and examined at the bedside. He is currently resting in the bed comfortably appears to be in no acute distress. He has contractures. He has PEG tube in place and tolerating PEG tube feeds along with free water. He is on antidepressant the form of vancomycin and cefepime. Wound cultures at the PEG tube site showed MRSA and urine cultures positive for Ps eudomonas and Enterococcus faecalis. ID Dr. Farah on board and following the patient. As per nursing staff report no acute events noted overnight. On reviewing the patient's vitals temperature 98.5, heart rate 81, respiratory rate 18, blood pressure 134/78, saturating at 98% on room air. On reviewing the labs sodium 139, potassium 4.2, chloride 109, bicarb 21, pain 19, creatinine 0.6. White count of 7.7, hemoglobin 12, platelets 379. Active Medications Acetaminophen (Acetaminophen Tab 325 Mg Tab) 650 mg PO Q6HR PRN PRN Reason: Mild Pain or Fever > 100.5 Acetaminophen (Acetaminophen Oral Susp 160 Mg/5 Ml Cup) 320 mg PEG/G-TUBE Q6H PRN PRN Reason: Fever and/ or Pain Last Admin: 03/11/21 23:06 Dose: 320 mg Documented by: Albuterol/Ipratropium (Ipratropium-Albuterol 3 Ml Neb) 3 ml INHALATION RT-Q6H PRN PRN Reason: Shortness Of Breath Last Admin: 03/08/21 13:36 Dose: 3 ml Documented by: Aspirin (Aspirin 81 Mg) 81 mg PEG/G-TUBE DAILY@0900 [facility] Last Admin: 03/12/21 08:33 Dose: 81 mg Documented by: Baclofen (Baclofen 10 Mg Tab) 10 mg PEG/G-TUBE TID@0600,1400,2200 [facility] Last Admin: 03/12/21 08:34 Dose: 10 mg Documented by: Carbamazepine (Carbamazepine 200 Mg Tab) 200 mg PEG/G-TUBE BID@0900,2100 [facility] Last Admin: 03/12/21 08:33 Dose: 200 mg Documented by: Cholecalciferol (Cholecalciferol 25 Mcg (1000 Iu) Tablet) 25 mcg PEG/G-TUBE D AILY@0900 [facility] Last Admin: 03/12/21 08:34 Dose: 25 mcg Documented by: Docusate Sodium (Docusate Oral Soln 100 Mg/10 Ml Cup) 100 mg PEG/G-TUBE BID@0900,2100 [facility] Last Admin: 03/12/21 08:33 Dose: 100 mg Documented by: Erythromycin (Erythromycin 5 Mg/Gm Ophth Oint 3.5 Gm Tube) 1 applic BOTH EYES Q6HR [facility] Last Admin: 03/12/21 15:26 Dose: 1 applic Documented by: Famotidine (Famotidine 20 Mg Tab) 20 mg PEG/G-TUBE HS [facility] Last Admin: 03/11/21 23:04 Dose: 20 mg Documented by: Guaifenesin (Guaifenesin Syrup 100mg/5ml 200 Mg/10 Ml Cup) 200 mg PEG/G-TUBE Q6H PRN PRN Reason: Cough Last Admin: 03/11/21 23:04 Dose: 200 mg Documented by: Heparin Sodium (Porcine) (Heparin Sodium,Porcine/Pf 5,000 Unit/0.5 Ml Syringe) 5,000 unit SQ Q8HR [facility] Last Admin: 03/12/21 15:26 Dose: 5,000 unit Documented by: Sodium Chloride (Saline 0.9%) 1,000 mls @ 75 mls/hr IV .[id number] [facility] Last Admin: 03/12/21 05:13 Dose: Not Given Documented by: Cefepime HCl 2 gm/ Sodium (Chloride) 100 mls @ 25 mls/hr IVPB Q8H [facility] Last Admin: 03/12/21 08:34 Dose: 25 mls/hr Documented by: Vancomycin HCl 1,250 mg/ (Sodium Chloride) 250 mls @ 125 mls/hr IVPB Q24H [facility] Last Admin: 03/11/21 20:25 Dose: 125 mls/hr Documented by: Lacosamide (Lacosamide 150 Mg Tablet) 150 mg PEG/G-TUBE BID@0900,2100 [facility] Last Admin: 03/12/21 08:33 Dose: 150 mg Documented by: Lactulose (Lactulose 20 Gm/30 Ml Cup) 20 gm PEG/G-TUBE BID@0900,2100 [facility] Last Admin: 03/12/21 08:33 Dose: 20 gm Documented by: Magnesium Hydroxide (Magnesium Hydroxide 2,400 Mg/10 Ml Cup) 2,400 mg PEG/G- TUBE Q72H PRN PRN Reason: Constipation Metoprolol Tartrate (Metoprolol Tartrate 25 Mg Tab) 75 mg PEG/G-TUBE BID@0900,2100 [facility] Last Admin: 03/12/21 08:33 Dose: 75 mg Documented by: Multi-Ingred Cream/Lotion/Oil/Oint (Hydrophilic Cream 180 Gm Tube) 1 applic TOPICAL DAILY [facility] Last Admin: 03/12/21 08:34 Dose: 1 applic Documented by: Naloxone HCl (Naloxone 0.4 Mg/Ml 1 Ml Vial) 0.2 mg IV Q2M PRN PRN Reason: Opioid Reversal Oxybutynin Chloride (Oxybutynin Chloride 5 Mg Tab) 5 mg PEG/G-TUBE TID@0600,1400,2200 [facility] Last Admin: 03/12/21 08:34 Dose: 5 mg Documented by: Scopolamine (Scopolamine 1.5mg/72hr Patch) 1 patch TRANSDERM Q72H [facility] Last Admin: 03/10/21 08:36 Dose: 1 patch Documented by: Objective - Vital Signs Vital signs: Vital Signs Temp 98.5 F 03/12/21 07:42 Pulse 81 03/12/21 07:42 Resp 15 03/12/21 08:00 BP 134/78 03/12/21 07:42 Pulse Ox 98 03/12/21 07:42 Intake & Output 03/11/21 03/12/21 03/12/21 18:59 06:59 18:59 Output Total 1500 Balance -1500 Weight 74 kg Output: Urine 1500 Other: Voiding Method Indwelling Catheter Indwelling Catheter Indwelling Catheter - Exam PHYSICAL EXAMINATION: Patient is lying in the bed comfortably, no acute distress, awake . non verbal but could trace me with his eyes in the room HEENT: Normocephalic. Neck is supple. Pupils reactive. Nostrils clear. Oral cavity is moist. Neck reveals no JVD, carotid bruits, or thyromegaly. CHEST EXAMINATION: Trachea is central. Symmetrical expansion. Bibasilar diminished sounds. No wheezing.. CARDIAC: Normal S1, S2 with no gallops. No murmurs ABDOMEN: Soft. Bowel sounds normal. No abdominal bruits. Sacral decubitus ulcers. Redness and skin excoriation around the PEG tube site. No purulent drainage noted. Extremities: reveal no edema. No clubbing or cyanosis. Heel ulcers Neurologically : awake. Quadriplegic and contractures of the bilateral lower extremities. Musculoskeletal: No joint swelling. - Labs CBC & Chem 7: 03/12/21 07:20 03/12/21 07:20 Labs: Abnormal Lab Results - Last 24 Hours (Table) 03/12/21 03/12/21 Range/Units 07:20 07:20 Hgb 12.0 L (13.0-17.0) g/dL Hct 39.5 L (39.6-50.0) % MCH 26.2 L (27.0-32.0) pg MCHC 30.4 L (32.0-37.0) g/dL RDW 16.4 H (11.5-14.5) % Eosinophils # 0.48 H (0.04-0.35) X 10*3/uL BUN/Creatinine Ratio 31.67 H (12.00-20.00) Ratio Microbiology - Last 24 Hours (Table) 03/11/21 07:14 Blood Culture - Preliminary Blood No Growth after 24 hours 03/07/21 17:27 Urine Culture - Final Urine,Clean Catch Pseudomonas aeruginosa Enterococcus faecalis 03/07/21 18:45 Blood Culture - Preliminary Blood No Growth after 96 hours 03/09/21 04:50 Anaerobic Culture - Preliminary Abdomen 03/09/21 04:50 Gram Stain - Final Abdomen Wound Culture - Final Methicillin resist S. aureus Assessment and Plan Assessment: ASSESSMENT Worsening shortness of breath and cough/right lower lobe pneumonia - Possible aspiration pneumonia. Multiple ulcerations with cellulitis around PEG tube site with increasing redness.Wound cultures growing MRSA. Pseudomonas and enterococcus urinary tract infection Right calcaneu stage II pressure ulcer. Nonhealing ulcerations on the anterior abdominal wall. Multiple sclerosis history. Dysphagia, dysarthria and bedridden Seizure disorder History of multiple pneumonias and ESBL E. coli urinary tract infections in the past Neurogenic bladder DVT prophylaxis with heparin subcu PLAN: Patient to be continued on board spectrum antibiotics in the form of vancomycin and cefepime to cover for UTI and abdominal wound. Overall prognosis is poor. Patient to be continued on the current medication regimen. Heparin for DVT prophylaxis and famotidine for GI prophylaxis. Further recommendations to follow depending on the progress of the patient.
[2021-03-12] MEDS: VANCOMYCIN 1,250 MG in SODIUM CHLORIDE 0.9% 250 ML IVPB SCH (19:47)
[2021-03-12] MEDS: ACETAMINOPHEN TAB 325 MG TAB PO PRN (22:38)
[2021-03-12] MEDS: FAMOTIDINE 20 MG TAB PEG/G-TUBE SCH (22:39)
--- NOTE | 2021-03-12 23:51 | PN ---
PROGRESS NOTE DATE OF SERVICE: 03/12/2021 REASON FOR FOLLOWUP: Urinary tract infection and PEG tube site cellulitis. INTERVAL HISTORY: Patient is currently afebrile. The patient is hemodynamically stable. The patient remains to be unable to provide any history. No vomiting, diarrhea or any other changes reported by the nursing staff. PHYSICAL EXAMINATION: Blood pressure 146/82 with a pulse of 77, temperature 98.3. He is 98% on room air. General description: The patient is a middle-aged male lying in no distress. Respiratory system: Unlabored breathing, decreased intensity of breath sounds. No wheeze. HEART: S1, S2. Regular rate and rhythm. ABDOMEN: Soft, no tenderness. PEG tube site did not have significant induration or swelling or redness. LABS: BUN of 12, creatinine 7.75, BUN of 19, creatinine 0.7. DIAGNOSTIC IMPRESSION AND PLAN: Patient with Pseudomonas urinary tract infection and MRSA PEG tube site positive culture. No sign of cellulitis noticed. Recommend getting a midline and short course of IV cefepime and vancomycin and close outpatient followup. MMODL / IJN: [id number] /
[2021-03-13] MEDS: CEFEPIME 2 GM in SODIUM CHLORIDE 0.9% 100 ML IVPB SCH ×3 (04:04→22:10)
[2021-03-13] MEDS: OXYBUTYNIN CHLORIDE 5 MG TAB PEG/G-TUBE SCH ×3 (06:24→20:09)
[2021-03-13] MEDS: ERYTHROMYCIN 5 MG/GM OPHTH OINT 3.5 GM TUBE BOTH EYES SCH ×4 (06:24→22:10)
[2021-03-13] MEDS: BACLOFEN 10 MG TAB PEG/G-TUBE SCH ×3 (06:24→20:09)
[2021-03-13] MEDS: LACTULOSE 20 GM/30 ML CUP PEG/G-TUBE SCH ×2 (09:19→20:09)
[2021-03-13] MEDS: LACOSAMIDE 150 MG TABLET PEG/G-TUBE SCH ×2 (09:19→20:09)
[2021-03-13] MEDS: DOCUSATE ORAL SOLN 100 MG/10 ML CUP PEG/G-TUBE SCH ×2 (09:19→20:09)
[2021-03-13] MEDS: guaiFENesin SYRUP 100MG/5ML 200 MG/10 ML CUP PEG/G-TUBE PRN (09:19)
[2021-03-13] MEDS: carBAMazepine 200 MG TAB PEG/G-TUBE SCH ×2 (09:20→20:09)
[2021-03-13] MEDS: METOPROLOL TARTRATE 25 MG TAB PEG/G-TUBE SCH ×2 (09:20→20:09)
[2021-03-13] MEDS: CHOLECALCIFEROL 25 MCG (1000 IU) TABLET PEG/G-TUBE SCH (09:20)
[2021-03-13] MEDS: ASPIRIN 81 MG PEG/G-TUBE SCH (09:20)
[2021-03-13] MEDS: SCOPOLAMINE 1.5MG/72HR PATCH TRANSDERM SCH (09:20)
[2021-03-13] MEDS: SODIUM CHLORIDE 0.9% 1,000 ML IV SCH ×2 (09:21→20:07)
[2021-03-13] MEDS: HYDROPHILIC CREAM 180 GM TUBE TOPICAL SCH (09:21)
[2021-03-13] MEDS: HEPARIN SODIUM,PORCINE/PF 5,000 UNIT/0.5 ML SYRINGE SQ SCH ×3 (09:21→22:10)
[2021-03-13 12:38] LABS: Basophils # (A) 0.03 X 10*3/uL (0.00-0.10); Basophils % (A) 0.5 %; Eosinophils % (A) 8.2 %; HCT 38.5 % (39.6-50.0); HGB 11.5 g/dL (13.0-17.0); Lymphocytes # (A) 1.19 X 10*3/uL (0.90-5.00); Lymphocytes % (A) 19.4 %; MCHC 29.9 g/dL (32.0-37.0); MCV 87.1 fL (80.0-97.0); Mean Platelet Volume 11.1 fL (9.5-12.2); Monocytes # (A) 0.54 X 10*3/uL (0.20-1.00); Monocytes % (A) 8.8 %; Neutrophils # (A) 3.82 X 10*3/uL (1.80-7.70); Neutrophils % (A) 62.4 %; Platelet Count 336 X 10*3/uL (140-440); RBC 4.42 X 10*6/uL (4.40-5.60); RDW 16.4 % (11.5-14.5); WBC 6.12 X 10*3/uL (4.50-10.00)
[2021-03-13 12:47] LABS: African American GFR (CKD) 125.8 (60.0-200.0); Albumin 3.4 g/dL (3.80-4.90); Albumin/Globulin Ratio 1.1 (1.60-3.17); Anion Gap 9.7 mmol/L (4.00-12.00); BUN/Creat Ratio 33.33 Ratio (12.00-20.00); Calcium 8.6 mg/dL (8.7-10.3); Carbon Dioxide 22.3 mmol/L (21.6-31.8); Globulin 3.1 g/dL (1.6-3.3); Non-African American GFR(CKD) 108.5 (60.0-200.0); Potassium 4.7 mmol/L (3.5-5.5); Total Bilirubin 0.1 mg/dL (0.3-1.2); Total Protein 6.5 g/dL (6.2-8.2)
--- NOTE | 2021-03-13 18:39 | P.PN ---
Subjective Progress Note Date: 03/13/21 Principal diagnosis: Abd. Wound cultures growing MRSA. Pseudomonas urinary tract infection Mr. 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 Patient is nonverbal and cannot provide history. The time of her admission chest x-ray showed atelectasis and interstitial infiltrate in the right lower lobe. Venous Doppler of the left hand was negative for DVT. Urine analysis was cloudy showing large leukocyte esterase and the cultures grew Pseudomonas and enterococcus faecalis. Patient also has abdominal wound and the cultures showing MRSA. On 03/12/2021 - patient is seen and examined at the bedside. He is currently resting in the bed comfortably appears to be in no acute distress. He has contractures. He has PEG tube in place and tolerating PEG tube feeds along with free water. He is on antidepressant the form of vancomycin and cefepime. Wound cultures at the PEG tube site showed MRSA and urine cultures positive for Ps eudomonas and Enterococcus faecalis. ID Dr. Farah on board and following the patient. As per nursing staff report no acute events noted overnight. On reviewing the patient's vitals temperature 98.5, heart rate 81, respiratory rate 18, blood pressure 134/78, saturating at 98% on room air. On reviewing the labs sodium 139, potassium 4.2, chloride 109, bicarb 21, pain 19, creatinine 0.6. White count of 7.7, hemoglobin 12, platelets 379. On 03/13/2021 - patient seen and examined at bedside. His comfortably lying in bed appears to be no acute distress. No acute events reported by nursing staff overnight. He is currently on vancomycin and cefepime for MRSA infection and urine cultures positive for Pseudomonas and Enterococcus faecalis. Reviewing the vitals temperature afebrile for the past 24 hours, heart rate 60s to 80s, blood pressure 146/82, saturating at 92% on room air. Awaiting labs from this morning white count of 6.1, hemoglobin 11.5, platelets 336. Sodium 14 and accommodation 4.7, chloride 110, BUN 20, creatinine 0.6. Medications have been reviewed: Tylenol, DuoNeb, aspirin, baclofen, carbamazepine, cefepime, erythromycin, famotidine, heparin, Vimpat, lactulose, milk of magnesia, metoprolol, vancomycin, oxybutynin Objective - Vital Signs Vital signs: Vital Signs Temp 97.4 F L 03/13/21 08:00 Pulse 72 03/13/21 08:00 Resp 16 03/13/21 08:00 BP 142/88 03/13/21 08:00 Pulse Ox 98 03/13/21 08:00 Intake & Output 03/12/21 03/13/21 03/13/21 18:59 06:59 18:59 Output Total 1999 Balance -1999 Output: Urine 1999 Other: Voiding Method Indwelling Catheter Indwelling Catheter Indwelling Catheter - Exam PHYSICAL EXAMINATION: Patient is lying in the bed comfortably, no acute distress, awake . non verbal but could trace me with his eyes in the room HEENT: Normocephalic. Neck is supple. Pupils reactive. Neck reveals no JVD, carotid bruits, or thyromegaly. CHEST EXAMINATION: Trachea is central. Symmetrical expansion. Bibasilar diminished sounds. No wheezing.. CARDIAC: Normal S1, S2 with no gallops. No murmurs ABDOMEN: Soft. Bowel sounds normal. No abdominal bruits. Sacral decubitus ulcers. Redness and skin excoriation around the PEG tube site. No purulent drainage noted. Extremities: reveal no edema. No clubbing or cyanosis. Heel ulcers Neurologically : awake. Quadriplegic and contractures of the bilateral lower extremities. Musculoskeletal: No joint swelling. - Labs CBC & Chem 7: 03/13/21 07:41 03/13/21 07:41 Labs: Abnormal Lab Results - Last 24 Hours (Table) 03/13/21 03/13/21 Range/Units 07:41 07:41 Hgb 11.5 L (13.0-17.0) g/dL Hct 38.5 L (39.6-50.0) % MCH 26.0 L (27.0-32.0) pg MCHC 29.9 L (32.0-37.0) g/dL RDW 16.4 H (11.5-14.5) % Eosinophils # 0.50 H (0.04-0.35) X 10*3/uL Chloride 110 H (96-109) mmol/L BUN/Creatinine Ratio 33.33 H (12.00-20.00) Ratio Calcium 8.6 L (8.7-10.3) mg/dL Total Bilirubin 0.1 L (0.3-1.2) mg/dL AST 13 L (14-35) U/L Albumin 3.40 L (3.80-4.90) g/dL Albumin/Globulin Ratio 1.10 L (1.60-3.17) g/dL Microbiology - Last 24 Hours (Table) 03/09/21 04:50 Anaerobic Culture - Final Abdomen 03/11/21 07:14 Blood Culture - Preliminary Blood No Growth after 48 hours 03/07/21 18:45 Blood Culture - Preliminary Blood No Growth after 120 hours Assessment and Plan Assessment: ASSESSMENT Worsening shortness of breath and cough/right lower lobe pneumonia - Possible aspiration pneumonia. Multiple ulcerations with cellulitis around PEG tube site with increasing redness.Wound cultures growing MRSA. Pseudomonas and enterococcus urinary tract infection Right calcaneu stage II pressure ulcer. Nonhealing ulcerations on the anterior abdominal wall. Multiple sclerosis history. Dysphagia, dysarthria and bedridden Seizure disorder History of multiple pneumonias and ESBL E. coli urinary tract infections in the past Neurogenic bladder DVT prophylaxis with heparin subcu PLAN: Patient to be continued on board spectrum antibiotics in the form of vancomycin and cefepime to cover for UTI and abdominal wound. Overall prognosis is poor. Patient to be continued on the current medication regimen. Heparin for DVT prophylaxis and famotidine for GI prophylaxis. As the patient needs short course of IV antibiotics, he is scheduled to get a midline for tomorrow morning. Further recommendations to follow depending on the progress of the patient.
[2021-03-13] MEDS: VANCOMYCIN 1,250 MG in SODIUM CHLORIDE 0.9% 250 ML IVPB SCH (20:08)
[2021-03-13] MEDS: ACETAMINOPHEN TAB 325 MG TAB PO PRN (20:08)
[2021-03-13] MEDS: FAMOTIDINE 20 MG TAB PEG/G-TUBE SCH (20:09)
[2021-03-14 00:36] LABS: Appearance,Urine Clear (Clear); Color,Urine Yellow; PH, Urine 6.5 (5.0-8.0); Specific Gravity,Urine 1.015 (1.001-1.035)
[2021-03-14 00:37] LABS: Bilirubin,Urine Negative (Negative); Blood,Urine Negative (Negative); Glucose,Urine (UA) Negative (Negative); Ketones,Urine Negative (Negative); Leukocyte Esterase,Urine Negative (Negative); Nitrite,Urine Negative (Negative); Protein,Urine Trace (Negative); Urobilinogen,Urine <2.0 mg/dL (<2.0)
[2021-03-14] MEDS: OXYBUTYNIN CHLORIDE 5 MG TAB PEG/G-TUBE SCH ×3 (05:02→20:46)
[2021-03-14] MEDS: ERYTHROMYCIN 5 MG/GM OPHTH OINT 3.5 GM TUBE BOTH EYES SCH ×3 (05:02→17:11)
[2021-03-14] MEDS: CEFEPIME 2 GM in SODIUM CHLORIDE 0.9% 100 ML IVPB SCH ×3 (05:02→19:41)
[2021-03-14] MEDS: BACLOFEN 10 MG TAB PEG/G-TUBE SCH ×3 (05:02→20:46)
--- NOTE | 2021-03-14 05:48 | PN ---
PROGRESS NOTE DATE OF SERVICE: 03/13/2021 REASON FOR FOLLOWUP: 1. Pseudomonas catheter associated infection. 2. PEG tube site culture with MRSA. INTERVAL HISTORY: Patient is currently afebrile. Patient is breathing comfortably on room air. Tolerating his tube feeds. No vomiting or any diarrhea has been reported by nursing staff. The patient himself unable to provide any history. PHYSICAL EXAMINATION: Blood pressure is 142/81 with a pulse of 78, temperature 98.5. He is 98% on room air. General description: The patient is a middle-aged male lying in bed in no distress. Respiratory system: Unlabored breathing, decreased intensity of breath sounds. No wheeze. HEART: S1, S2. Regular rate and rhythm. ABDOMEN: Soft, no tenderness. EXTREMITIES: No edema of the feet. LABS: Blood culture has been negative. Hemoglobin 11.5, white count 6.12. BUN of 20, creatinine 0.6. DIAGNOSTIC IMPRESSION AND PLAN: 1. Patient admitted the patient the hospital with congested cough and concern for possible pneumonia. Did have a component of urinary tract infection for which the patient is currently covered with vancomycin and cefepime. We will repeat a UA and may be able to discontinue his antibiotics. 2. Patient with PEG tube site culture showing MRSA. However, no significant cellulitis has been noticed and may not need antibiotic for the positive culture from the PEG tube site at the time of discharge. MMODL / IJN: [id number] /
[2021-03-14 08:00] LABS: ALT 13 U/L (4-49); African American GFR (CKD) >90 (>60 ml/min/1.73 sqM); Albumin 3.4 g/dL (3.5-5.0); Albumin/Globulin Ratio 0.9; Anion Gap 9 mmol/L; Blood Urea Nitrogen 22 mg/dL (9-20); Calcium 8.7 mg/dL (8.4-10.2); Carbon Dioxide 22 mmol/L (22-30); Chloride 109 mmol/L (98-107); Globulin 3.7 g/dL; Glucose 92 mg/dL (74-99); Non-African American GFR(CKD) >90 (>60 ml/min/1.73 sqM); Sodium 140 mmol/L (137-145); Total Bilirubin 0.3 mg/dL (0.2-1.3); Total Protein 7.1 g/dL (6.3-8.2)
--- NOTE | 2021-03-14 08:04 | XR ---
EXAMINATION TYPE: XR chest 1V portable DATE OF EXAM: 03/14/2021 COMPARISON: 03/07/2021 HISTORY: COUGH TECHNIQUE: Single frontal view of the chest is obtained. FINDINGS: There is an improved linear density in the right mid lung zone, likely atelectasis. The l eft lung is grossly clear. Cardiomediastinal silhouette is unchanged. IMPRESSION: Improved atelectasis in the right lung.
[2021-03-14 08:06] LABS: Potassium 4.7 mmol/L (3.5-5.1)
[2021-03-14 08:07] LABS: AST 26 U/L (17-59); Alkaline Phosphatase 95 U/L (38-126)
[2021-03-14] MEDS: ASPIRIN 81 MG PEG/G-TUBE SCH (08:52)
[2021-03-14] MEDS: LACOSAMIDE 150 MG TABLET PEG/G-TUBE SCH ×2 (08:52→20:46)
[2021-03-14] MEDS: METOPROLOL TARTRATE 25 MG TAB PEG/G-TUBE SCH ×2 (08:52→20:46)
[2021-03-14] MEDS: LACTULOSE 20 GM/30 ML CUP PEG/G-TUBE SCH ×2 (08:52→20:46)
[2021-03-14] MEDS: HYDROPHILIC CREAM 180 GM TUBE TOPICAL SCH (08:52)
[2021-03-14] MEDS: CHOLECALCIFEROL 25 MCG (1000 IU) TABLET PEG/G-TUBE SCH (08:52)
[2021-03-14] MEDS: DOCUSATE ORAL SOLN 100 MG/10 ML CUP PEG/G-TUBE SCH ×2 (08:53→20:46)
[2021-03-14] MEDS: carBAMazepine 200 MG TAB PEG/G-TUBE SCH ×2 (08:53→20:46)
[2021-03-14] MEDS: HEPARIN SODIUM,PORCINE/PF 5,000 UNIT/0.5 ML SYRINGE SQ SCH ×2 (08:53→15:27)
[2021-03-14] MEDS: SODIUM CHLORIDE 0.9% 1,000 ML IV SCH (08:54)
[2021-03-14 12:37] LABS: Basophils # (A) 0.05 X 10*3/uL (0.00-0.10); Basophils % (A) 0.8 %; Eosinophils # (A) 0.48 X 10*3/uL (0.04-0.35); Eosinophils % (A) 7.2 %; HCT 38.8 % (39.6-50.0); HGB 11.7 g/dL (13.0-17.0); Lymphocytes % (A) 19.5 %; MCH 25.7 pg (27.0-32.0); MCHC 30.2 g/dL (32.0-37.0); MCV 85.1 fL (80.0-97.0); Mean Platelet Volume 11.6 fL (9.5-12.2); Monocytes # (A) 0.55 X 10*3/uL (0.20-1.00); Monocytes % (A) 8.3 %; Neutrophils # (A) 4.21 X 10*3/uL (1.80-7.70); Neutrophils % (A) 63.3 %; Platelet Count 285 X 10*3/uL (140-440); RBC 4.56 X 10*6/uL (4.40-5.60); RDW 16.6 % (11.5-14.5); WBC 6.65 X 10*3/uL (4.50-10.00)
[2021-03-14 13:46] VITALS: BMI 24.2
--- NOTE | 2021-03-14 16:19 | P.PN ---
Subjective Progress Note Date: 03/14/21 Principal diagnosis: Abd. Wound cultures growing MRSA. Pseudomonas urinary tract infection Mr. 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 Patient is nonverbal and cannot provide history. The time of her admission chest x-ray showed atelectasis and interstitial infiltrate in the right lower lobe. Venous Doppler of the left hand was negative for DVT. Urine analysis was cloudy showing large leukocyte esterase and the cultures grew Pseudomonas and enterococcus faecalis. Patient also has abdominal wound and the cultures showing MRSA. On 03/12/2021 - patient is seen and examined at the bedside. He is currently resting in the bed comfortably appears to be in no acute distress. He has contractures. He has PEG tube in place and tolerating PEG tube feeds along with free water. He is on antidepressant the form of vancomycin and cefepime. Wound cultures at the PEG tube site showed MRSA and urine cultures positive for Ps eudomonas and Enterococcus faecalis. ID Dr. Farah on board and following the patient. As per nursing staff report no acute events noted overnight. On reviewing the patient's vitals temperature 98.5, heart rate 81, respiratory rate 18, blood pressure 134/78, saturating at 98% on room air. On reviewing the labs sodium 139, potassium 4.2, chloride 109, bicarb 21, pain 19, creatinine 0.6. White count of 7.7, hemoglobin 12, platelets 379. On 03/13/2021 - patient seen and examined at bedside. His comfortably lying in bed appears to be no acute distress. No acute events reported by nursing staff overnight. He is currently on vancomycin and cefepime for MRSA infection and urine cultures positive for Pseudomonas and Enterococcus faecalis. Reviewing the vitals temperature afebrile for the past 24 hours, heart rate 60s to 80s, blood pressure 146/82, saturating at 92% on room air. Awaiting labs from this morning white count of 6.1, hemoglobin 11.5, platelets 336. Sodium 14 and accommodation 4.7, chloride 110, BUN 20, creatinine 0.6. On 03/14/2021 - patient seen and examined at bedside. Patient's sister the bedside. Patient appears to be in no acute distress and no events reported by nursing staff overnight. On reviewing his vitals temperature 98.4, heart rate 77, respiratory 18, blood pressure 124/74, saturating at 93% on room air. Reviewing his labs from this morning white count of 6.6, hemoglobin 11.7, platelets 285. Sodium 140, ratio 4.7, chloride 109, bicarbonate 22, BUN 22, creatinine 0.55 Medications have been reviewed: Tylenol, DuoNeb, aspirin, baclofen, carba mazepine, cefepime, erythromycin, famotidine, heparin, Vimpat, lactulose, milk of magnesia, metoprolol, vancomycin, oxybutynin Objective - Vital Signs Vital signs: Vital Signs Temp 98.2 F 03/14/21 07:50 Pulse 80 03/14/21 08:54 Resp 18 03/14/21 08:54 BP 141/84 03/14/21 07:50 Pulse Ox 97 03/14/21 07:50 Intake & Output 03/13/21 03/14/21 03/14/21 18:59 06:59 18:59 Output Total 1800 1100 Balance -1800 -1100 Weight 74.5 kg Output: Urine 1800 1100 Other: Voiding Method Indwelling Catheter Indwelling Catheter Indwelling Catheter # Bowel Movements 1 0 - Exam PHYSICAL EXAMINATION: Patient is lying in the bed comfortably, no acute distress, awake . non verbal but could trace me with his eyes in the room HEENT: Normocephalic. Neck is supple. Pupils reactive. Neck reveals no JVD, carotid bruits, or thyromegaly. CHEST EXAMINATION: Trachea is central. Symmetrical expansion. Bibasilar diminished sounds. CARDIAC: Normal S1, S2 with no gallops. No murmurs ABDOMEN: Soft. Bowel sounds normal. No abdominal bruits. Sacral decubitus ulcers. Redness and skin excoriation around the PEG tube site. No purulent drainage noted. Extremities: reveal no edema. No clubbing or cyanosis. Heel ulcers Neurologically : awake. Quadriplegic and contractures of the bilateral lower extremities. - Labs CBC & Chem 7: 03/14/21 07:05 03/14/21 07:05 Labs: Abnormal Lab Results - Last 24 Hours (Table) 03/14/21 03/14/21 Range/Units 07:05 07:05 Hgb 11.7 L (13.0-17.0) g/dL Hct 38.8 L (39.6-50.0) % MCH 25.7 L (27.0-32.0) pg MCHC 30.2 L (32.0-37.0) g/dL RDW 16.6 H (11.5-14.5) % Immature Gran # 0.06 H (0.00-0.04) X 10*3/uL Eosinophils # 0.48 H (0.04-0.35) X 10*3/uL Chloride 109 H (98-107) mmol/L BUN 22 H (9-20) mg/dL Creatinine 0.55 L (0.66-1.25) mg/dL Albumin 3.4 L (3.5-5.0) g/dL Microbiology - Last 24 Hours (Table) 03/11/21 07:14 Blood Culture - Preliminary Blood No Growth after 72 hours 03/07/21 18:45 Blood Culture - Final Blood No Growth after 144 hours 03/09/21 04:50 Anaerobic Culture - Final Abdomen Assessment and Plan Assessment: ASSESSMENT Worsening shortness of breath and cough/right lower lobe pneumonia - Possible aspiration pneumonia. Multiple ulcerations with cellulitis around PEG tube site with increasing redness.Wound cultures growing MRSA. Pseudomonas and enterococcus urinary tract infection Right calcaneu stage II pressure ulcer. Nonhealing ulcerations on the anterior abdominal wall. Multiple sclerosis history. Dysphagia, dysarthria and bedridden Seizure disorder History of multiple pneumonias and ESBL E. coli urinary tract infections in the past Neurogenic bladder DVT prophylaxis with heparin subcu PLAN: Patient to be continued on board spectrum antibiotics in the form of vancomycin and cefepime to cover for UTI and abdominal wound. ID Dr. Farah on board. Overall prognosis is poor. Patient to be continued on the current medication regimen. Heparin for DVT prophylaxis and famotidine for GI prophylaxis. As the patient needs IV antibiotics, midline has been placed this morning. manager test and clinical social worker on board for SNF placement. Further recommendations to follow depending on the progress of the patient. The treatment plan was discussed with the patient's sister at bedside in detail, all her questions were answered to her satisfaction.
[2021-03-14] MEDS ORDERED: VANCOMYCIN TROUGH DUE 1 EACH MISC MISCELLANE ONE (19:00)
[2021-03-14] MEDS: VANCOMYCIN 1,250 MG in SODIUM CHLORIDE 0.9% 250 ML IVPB SCH (19:41)
--- NOTE | 2021-03-14 19:41 | PN ---
PROGRESS NOTE DATE OF SERVICE: 03/14/2021 REASON FOR FOLLOWUP: UTI and pneumonia and PEG tube site positive culture. INTERVAL HISTORY: The patient is afebrile. The patient is hemodynamically stable. He is breathing comfortably. No vomiting or diarrhea has been reported by nursing staff. PHYSICAL EXAMINATION: Blood pressure 124/74, pulse of 77, temperature 98.1. General description: The patient is a middle-aged male lying in no distress. Respiratory system: Unlabored breathing, decreased breath sounds at bases. No wheeze. Heart S1, S2. Regular rate and rhythm. ABDOMEN: Soft. No tenderness. PEG tube site swelling and redness has resolved. Extremities: No edema of the feet. LABS: Hemoglobin 11.1, white count 6.6, BUN of 22, creatinine 0.55. Repeat urine is negative. Chest x-ray showed improvement in the right lower lobe infiltrate. DIAGNOSTIC IMPRESSION/PLAN: 1. Patient with Pseudomonas urinary tract infection, adequately treated. Repeat urine is negative. 2. Abdominal wall PEG tube site cellulitis. Culture positive for MRSA, adequately treated with resolution of the cellulitis. No need for vancomycin on discharge. 3. Patient with right lower lobe pneumonia possible Gram-negative/nosocomial as the patient responded to the cefepime to continue for another 5-10 days on discharge. Continue supportive care. MMODL / IJN: [id number] /
[2021-03-14] MEDS: FAMOTIDINE 20 MG TAB PEG/G-TUBE SCH (20:46)
[2021-03-15] MEDS: SODIUM CHLORIDE 0.9% 1,000 ML IV SCH (00:13)
[2021-03-15] MEDS: HEPARIN SODIUM,PORCINE/PF 5,000 UNIT/0.5 ML SYRINGE SQ SCH ×2 (00:13→08:26)
[2021-03-15] MEDS: ERYTHROMYCIN 5 MG/GM OPHTH OINT 3.5 GM TUBE BOTH EYES SCH ×3 (00:13→11:07)
[2021-03-15] MEDS: CEFEPIME 2 GM in SODIUM CHLORIDE 0.9% 100 ML IVPB SCH ×2 (03:21→11:08)
[2021-03-15] MEDS: OXYBUTYNIN CHLORIDE 5 MG TAB PEG/G-TUBE SCH (04:52)
[2021-03-15] MEDS: BACLOFEN 10 MG TAB PEG/G-TUBE SCH (04:52)
[2021-03-15] MEDS: carBAMazepine 200 MG TAB PEG/G-TUBE SCH (08:26)
[2021-03-15] MEDS: DOCUSATE ORAL SOLN 100 MG/10 ML CUP PEG/G-TUBE SCH (08:26)
[2021-03-15] MEDS: LACTULOSE 20 GM/30 ML CUP PEG/G-TUBE SCH (08:26)
[2021-03-15] MEDS: CHOLECALCIFEROL 25 MCG (1000 IU) TABLET PEG/G-TUBE SCH (08:27)
[2021-03-15] MEDS: LACOSAMIDE 150 MG TABLET PEG/G-TUBE SCH (08:27)
[2021-03-15] MEDS: ASPIRIN 81 MG PEG/G-TUBE SCH (08:27)
[2021-03-15] MEDS: METOPROLOL TARTRATE 25 MG TAB PEG/G-TUBE SCH (08:27)
[2021-03-15] MEDS: HYDROPHILIC CREAM 180 GM TUBE TOPICAL SCH (08:27)
[2021-03-15 08:57] VITALS: RESP 18
[2021-03-15 11:16] LABS: Anion Gap 11.6 mmol/L (4.00-12.00); BUN/Creat Ratio 34.29 Ratio (12.00-20.00); Carbon Dioxide 21.4 mmol/L (21.6-31.8); Non-African American GFR(CKD) 101.9 (60.0-200.0); Potassium 4.7 mmol/L (3.5-5.5)
[2021-03-15 11:18] LABS: Basophils # (A) 0.03 X 10*3/uL (0.00-0.10); Basophils % (A) 0.4 %; Eosinophils # (A) 0.44 X 10*3/uL (0.04-0.35); HCT 41.4 % (39.6-50.0); HGB 12.4 g/dL (13.0-17.0); Lymphocytes # (A) 1.72 X 10*3/uL (0.90-5.00); Lymphocytes % (A) 23.3 %; MCH 26.1 pg (27.0-32.0); Mean Platelet Volume 10.8 fL (9.5-12.2); Monocytes # (A) 0.72 X 10*3/uL (0.20-1.00); Monocytes % (A) 9.8 %; Neutrophils # (A) 4.41 X 10*3/uL (1.80-7.70); Neutrophils % (A) 59.8 %; Platelet Count 375 X 10*3/uL (140-440); RBC 4.76 X 10*6/uL (4.40-5.60); RDW 16.7 % (11.5-14.5); WBC 7.37 X 10*3/uL (4.50-10.00)
[2021-03-15] MEDS ORDERED: VANCOMYCIN 1,250 MG in SODIUM CHLORIDE 0.9% 250 ML IVPB SCH (12:00)
--- NOTE | 2021-03-15 14:31 | P.DS ---
Providers Date of admission: 03/09/21 09:06 Expected date of discharge: 03/15/21 Attending physician: Judi Carey Consults: 03/08/21 21:31 Consult Physician Routine Consulting Provider: Sonal Farah Consult Reason/Comments: Pneumonia Do you want consulting provider notified?: Yes, Notify in am Primary care physician: [facility] Course: Discharge diagnosis. Worsening shortness of breath and cough/right lower lobe pneumonia - Possible aspiration pneumonia. Multiple ulcerations with cellulitis around PEG tube site with increasing redness.Wound cultures growing MRSA. Pseudomonas and enterococcus urinary tract infection Right calcaneus stage II pressure ulcer. Nonhealing ulcerations on the anterior abdominal wall. Multiple sclerosis history. Dysphagia, dysarthria and bedridden Seizure disorder History of multiple pneumonias and ESBL E. coli urinary tract infections in the past Neurogenic bladder DVT prophylaxis with heparin subcu Hospital course Mr. 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 Patient is nonverbal and cannot provide history. The time of her admission chest x-ray showed atelectasis and interstitial infiltrate in the right lower lobe. Venous Doppler of the left hand was negative for DVT. Urine analysis was cloudy showing large leukocyte esterase and the cultures grew Pseudomonas and enterococcus faecalis. Patient also has abdominal wound and the cultures showing MRSA. On 03/12/2021 - patient is seen and examined at the bedside. He is currently resting in the bed comfortably appears to be in no acute distress. He has contractures. He has PEG tube in place and tolerating PEG tube feeds along with free water. He is on antidepressant the form of vancomycin and cefepime. Wound cultures at the PEG tube site showed MRSA and urine cultures positive for Pseudomonas and Enterococcus faecalis. ID Dr. Farah on board and following the patient. As per nursing staff report no acute events noted overnight. On reviewing the patient's vitals temperature 98.5, heart rate 81, respiratory rate 18, blood pressure 134/78, saturating at 98% on room air. On reviewing the labs sodium 139, potassium 4.2, chloride 109, bicarb 21, pain 19, creatinine 0.6. White count of 7.7, hemoglobin 12, platelets 379. On 03/13/2021 - patient seen and examined at bedside. His comfortably lying in bed appears to be no acute distress. No acute events reported by nursing staff overnight. He is currently on vancomycin and cefepime for MRSA infection and urine cultures positive for Pseudomonas and Enterococcus faecalis. Reviewing the vitals temperature afebrile for the past 24 hours, heart rate 60s to 80s, blood pressure 146/82, saturating at 92% on room air. Awaiting labs from this morning white count of 6.1, hemoglobin 11.5, platelets 336. Sodium 14 and accommodation 4.7, chloride 110, BUN 20, creatinine 0.6. On 03/14/2021 - patient seen and examined at bedside. Patient's sister the bedside. Patient appears to be in no acute distress and no events reported by nursing staff overnight. On reviewing his vitals temperature 98.4, heart rate 77, respiratory 18, blood pressure 124/74, saturating at 93% on room air. Reviewing his labs from this morning white count of 6.6, hemoglobin 11.7, platelets 285. Sodium 140, ratio 4.7, chloride 109, bicarbonate 22, BUN 22, creatinine 0.55 03/15/2021 Patient was seen and examined. Lying in the bed comfortably. Patient is bedridden and nonverbal at baseline. appears to be in no distress. No fever or other overnight issues. Patient is being continued on Antibiotics in the form of cefepime and vancomycin. Abdominal wound cultures showed MRSA and urine culture showed Pseudomonas and Enterococcus faecalis. ID recommends to continue cefepime for another 5 days to complete the antibiotic course. Patient is tolerating PEG tube feeding. No vomiting no diarrhea. Patient is being discharged home today. Laboratory data showed WBC 7.37, hemoglobin 12.4, platelets 375, sodium 139 potassium 4.7 chloride 106 BUN 24 and creatinine 0.7 and blood sugar is 113 Patient is being discharged to extended care facility. Vital Signs 03/15/21 03/15/21 08:00 08:26 Temperature 97.8 F Pulse Rate [ 80 80 Pulse Oximetery ] Respiratory 18 18 Rate Blood Pressure 132/75 [Right Arm] O2 Sat by Pulse 98 Oximetry PHYSICAL EXAMINATION: Patient is lying in the bed comfortably, no acute distress, awake . non verbal but could trace me with his eyes in the room HEENT: Normocephalic. Neck is supple. Pupils reactive. Neck reveals no JVD, carotid bruits, or thyromegaly. CHEST EXAMINATION: Trachea is central. Symmetrical expansion. Bibasilar diminished sounds. CARDIAC: Normal S1, S2 with no gallops. No murmurs ABDOMEN: Soft. Bowel sounds normal. No abdominal bruits. Sacral decubitus ulcers. Redness and skin excoriation around the PEG tube site. No purulent drainage noted. Extremities: reveal no edema. No clubbing or cyanosis. Heel ulcers Neurologically : awake. Quadriplegic and contractures of the bilateral lower extremities. Total time taken greater than 35 minutes including 18 minutes for counseling and coordination of care. Patient Condition at Discharge: Stable Plan - Discharge Summary Discharge Rx Participant: No New Discharge Prescriptions: New Cefepime [Maxipime] 2 gm IVPB Q8H 5 Days #15 vial Continue Cholecalciferol [Vitamin D3 (25 Mcg = 1000 Iu)] 1,000 unit PEG/G-TUBE DAILY @0900 guaiFENesin [guaiFENesin Oral Solution] 200 mg PEG/G-TUBE Q6H PRN PRN Reason: Cough Acetaminophen Oral Susp [Tylenol] 320 mg PEG/G-TUBE Q6H PRN PRN Reason: Fever And/ Or Pain Oxybutynin Chloride [Ditropan Oral Soln] 5 mg PEG/G-TUBE TID@0600,1400,2200 Ipratropium-Albuterol Nebulize [Duoneb 0.5 mg-3 mg/3 ml Soln] 3 ml INHALATION RT-Q6H PRN PRN Reason: Shortness Of Breath Baclofen [Lioresal] 10 mg PEG/G-TUBE TID@0600,1400,2200 carBAMazepine [TEGretol] 200 mg PEG/G-TUBE BID@0900,2100 Scopolamine [Scopolamine 1 MG/72 HR patch] 1 patch TRANSDERM Q72H amantadine HCL [Amantadine] 100 mg PEG/G-TUBE DAILY@0900 Cranberry Fruit Extract [Cranberry] 500 mg PEG/G-TUBE DAILY@0900 Aspirin 81 mg PEG/G-TUBE DAILY@0900 Uti-Stat Cranberry Oral Supplement 30 ml PEG/G-TUBE BID@899,2099 Lactulose 20 gm PEG/G-TUBE BID@899,2099 Docusate Oral Soln [Colace Oral Soln] 100 mg PEG/G-TUBE BID@899,2099 Prostat Protein Supplement 30 ml PEG/G-TUBE BID@899,2099 Metoprolol Tartrate [Lopressor] 75 mg PEG/G-TUBE BID@899,2099 Famotidine [Pepcid] 20 mg PEG/G-TUBE HS Magnesium Hydroxide [Milk of Magnesia Concentrate] 7,200 mg PEG/G-TUBE Q72H PRN PRN Reason: Constipation Lacosamide [Vimpat] 150 mg PEG/G-TUBE BID@899,2099 #6 tab Discharge Medication List Cholecalciferol [Vitamin D3 (25 Mcg = 1000 Iu)] 1,000 unit PEG/G-TUBE DAILY@89912/28/17 [History] guaiFENesin [guaiFENesin Oral Solution] 200 mg PEG/G-TUBE Q6H PRN 12/28/17 [History] Acetaminophen Oral Susp [Tylenol] 320 mg PEG/G-TUBE Q6H PRN 01/26/19 [History] Oxybutynin Chloride [Ditropan Oral Soln] 5 mg PEG/G-TUBE TID@0600,1400,0 09/08/19 [History] Ipratropium-Albuterol Nebulize [Duoneb 0.5 mg-3 mg/3 ml Soln] 3 ml INHALATION RT-Q6H PRN 12/16/19 [History] Baclofen [Lioresal] 10 mg PEG/G-TUBE TID@0600,1400,2200 07/16/20 [History] carBAMazepine [TEGretol] 200 mg PEG/G-TUBE BID@899,209907/30/20 [History] Scopolamine [Scopolamine 1 MG/72 HR patch] 1 patch TRANSDERM Q72H 09/07/20 [History] Aspirin 81 mg PEG/G-TUBE DAILY@89911/27/20 [History] Cranberry Fruit Extract [Cranberry] 500 mg PEG/G-TUBE DAILY@89911/27/20 [History] amantadine HCL [Amantadine] 100 mg PEG/G-TUBE DAILY@89911/27/20 [History] Docusate Oral Soln [Colace Oral Soln] 100 mg PEG/G-TUBE BID@899,209903/07/21 [History] Famotidine [Pepcid] 20 mg PEG/G-TUBE HS 03/07/21 [History] Lactulose 20 gm PEG/G-TUBE BID@0900,209903/07/21 [History] Magnesium Hydroxide [Milk of Magnesia Concentrate] 7,200 mg PEG/G-TUBE Q72H PRN 03/07/21 [History] Metoprolol Tartrate [Lopressor] 75 mg PEG/G-TUBE BID@899,209903/07/21 [History] Prostat Protein Supplement 30 ml PEG/G-TUBE BID@899,209903/07/21 [History] Uti-Stat Cranberry Oral Supplement 30 ml PEG/G-TUBE BID@899,209903/07/21 [History] Cefepime [Maxipime] 2 gm IVPB Q8H 5 Days #15 vial 03/15/21 [Rx] Lacosamide [Vimpat] 150 mg PEG/G-TUBE BID@899,2099 #6 tab 03/15/21 [Rx] Follow up Appointment(s)/Referral(s): Matteo Hernandez MD [Primary Care Provider] - 1-2 days Katie Peres [NON-STAFF] - As Needed Discharge Disposition: TRANSFER TO SNF/ECF
[2021-03-15 15:49] VITALS: BP 125/75; PULSE 70; TEMP 98.1
--- NOTE | 2021-03-15 16:54 | PN ---
PROGRESS NOTE DATE OF SERVICE: 03/15/2021 REASON FOR FOLLOWUP: 1. PEG tube site cellulitis. 2. Pseudomonas UTI. 3. Pneumonia. INTERVAL HISTORY: Patient is afebrile. The patient is breathing comfortably on room air. No vomiting or diarrhea has been reported by nursing staff. No drainage on his PEG tube site. PHYSICAL EXAMINATION: Blood pressure 125/75, pulse of 70 temperature is currently 98.6. General description is a middle-aged male lying in no distress. Respiratory system: Unlabored breathing, clear to auscultation anteriorly. HEART: S1, S2. Regular rate and rhythm. ABDOMEN: Soft. No tenderness. PEG tube site with no swelling and redness or any drainage. Extremities no edema of the feet. LABS: Hemoglobin is 12.7, white count ( ), BUN of 24, creatinine 0.7. IMPRESSION/PLAN: 1. Patient with Pseudomonas urinary tract infection, adequately treated. Repeat urine is negative. 2. MRSA abdominal positive urine culture, possible colonization, not behaving as cellulitis. Vancomycin discontinued. 3. Pneumonia, possible gram-negative overall improvement on cefazolin for another 5 days to finish a course of therapy. Close outpatient followup condition. MMODL / IJN: [id number] /
== END 2021-03-15 15:57 | DRG 178 ==
LOC: EC 15:58 → 4SSUR 18:39 → INTOOBSV 19:28 → OBSVTOIN 19:28 → 4SSUR 22:24 → OBSVTOIN 03-09 09:06
PROVIDERS: ADMIT Internal Medicine; ATTEND Internal Medicine
PROC: 05HC33Z Insertion of Infusion Device into Left Basilic Vein, Percutaneous Approach (ICD-10-PCS; principal; 2021-03-14 07:30)
DX: J69.0 Pneumonitis due to inhalation of food and vomit (principal); T83.518A Infection and inflammatory reaction due to other urinary catheter, initial encounter; J96.11 Chronic respiratory failure with hypoxia; L03.311 Cellulitis of abdominal wall; K94.22 Gastrostomy infection; J98.11 Atelectasis; N39.0 Urinary tract infection, site not specified; L89.612 Pressure ulcer of right heel, stage 2; G35 Multiple sclerosis; G40.909 Epilepsy, unspecified, not intractable, without status epilepticus; L98.491 Non-pressure chronic ulcer of skin of other sites limited to breakdown of skin; J15.6 Pneumonia due to other Gram-negative bacteria; Z20.822 Contact with and (suspected) exposure to COVID-19; B95.62 Methicillin resistant Staphylococcus aureus infection as the cause of diseases classified elsewhere; B96.5 Pseudomonas (aeruginosa) (mallei) (pseudomallei) as the cause of diseases classified elsewhere; B95.2 Enterococcus as the cause of diseases classified elsewhere; Y95 Nosocomial condition; I10 Essential (primary) hypertension; K21.9 Gastro-esophageal reflux disease without esophagitis; N31.9 Neuromuscular dysfunction of bladder, unspecified; R13.10 Dysphagia, unspecified; R47.1 Dysarthria and anarthria; F32.9 Major depressive disorder, single episode, unspecified; G50.0 Trigeminal neuralgia; K59.00 Constipation, unspecified; R15.9 Full incontinence of feces; Z79.82 Long term (current) use of aspirin; Z79.899 Other long term (current) drug therapy; Z87.440 Personal history of urinary (tract) infections; Z87.01 Personal history of pneumonia (recurrent); Z86.718 Personal history of other venous thrombosis and embolism; Z86.19 Personal history of other infectious and parasitic diseases; Z86.14 Personal history of Methicillin resistant Staphylococcus aureus infection; Z90.89 Acquired absence of other organs; Z86.69 Personal history of other diseases of the nervous system and sense organs; Z74.01 Bed confinement status; Z87.81 Personal history of (healed) traumatic fracture; Z98.890 Other specified postprocedural states; Y84.6 Urinary catheterization as the cause of abnormal reaction of the patient, or of later complication, without mention of misadventure at the time of the procedure; Z88.1 Allergy status to other antibiotic agents; Z82.49 Family history of ischemic heart disease and other diseases of the circulatory system
CPT/HCPCS: 36410; 36415; 71045; 76937; 80048; 80053; 80202; 81001; 81003; 82565; 83605; 85025; 85610; 85730; 87040; 87070; 87075; 87077; 87086; 87186; 87205; 87635; 93005; 94640; 99285

== ENCOUNTER 2021-03-23 21:54 | Inpatient (IN) | payer MEDICARE, OTHER ==
[2021-03-23] MEDS ORDERED: ONDANSETRON 4 MG/2 ML VIAL IVP STA (22:17)
[2021-03-23] MEDS ORDERED: SODIUM CHLORIDE 0.9% 1,000 ML IV STA (22:17)
[2021-03-23] MEDS ORDERED: PANTOPRAZOLE 40 MG/10 ML VIAL IVP STA (22:19)
[2021-03-23] MEDS ORDERED: IPRATROPIUM-ALBUTEROL 3 ML NEB INHALATION STA (22:19)
--- NOTE | 2021-03-23 22:49 | ED ---
SOB HPI - General Chief Complaint: Shortness of Breath Stated Complaint: SOB Time Seen by Provider: 03/23/21 22:09 Source: EMS, RN notes reviewed, old records reviewed Mode of arrival: EMS Limitations: physical limitation - History of Present Illness Initial Comments: This is a 60-year-old male DF for evaluation. Patient is a poor story unable acute communicate secondary severe MS. Patient will be admitted for possible aspiration developing aspiration pneumonia MD Complaint: shortness of breath, cough -: hour(s) Severity: severe Severity scale (1-10): 8 Consistency: constant Improves With: nothing Worsens With: nothing Associated Symptoms: denies other symptoms Treatments Prior to Arrival: oxygen, bronchodilator - Related Data Home Medications Medication Instructions Recorded Confirmed Cholecalciferol [Vitamin D3 (25 1,000 unit PEG/G-TUBE DAILY@0900 12/28/17 03/23/21 Mcg = 1000 Iu)] Acetaminophen Oral Susp [Tylenol] 320 mg PEG/G-TUBE Q6H PRN 01/26/19 03/23/21 Oxybutynin Chloride [Ditropan Oral 5 mg PEG/G-TUBE TID@0600,1400,2200 09/08/19 03/23/21 Soln] Ipratropium-Albuterol Nebulize 3 ml INHALATION RT-Q6H PRN 12/16/19 03/23/21 [Duoneb 0.5 mg-3 mg/3 ml Soln] Baclofen [Lioresal] 10 mg PEG/G-TUBE TID@0600,1400,2200 07/16/20 03/23/21 carBAMazepine [TEGretol] 200 mg PEG/G-TUBE BID@0900,2100 07/30/20 03/23/21 Scopolamine [Scopolamine 1 MG/72 1 patch TRANSDERM Q72H 09/07/20 03/23/21 HR patch] Aspirin 81 mg PEG/G-TUBE DAILY@0900 11/27/20 03/23/21 Cranberry Fruit Extract [Cranberry] 500 mg PEG/G-TUBE DAILY@0900 11/27/20 03/23/21 amantadine HCL [Amantadine] 100 mg PEG/G-TUBE DAILY@0900 11/27/20 03/23/21 Docusate Oral Soln [Colace Oral 100 mg PEG/G-TUBE BID@0900,2100 07/21 06/23/21 Soln] Famotidine [Pepcid] 20 mg PEG/G-TUBE HS 03/07/21 03/23/21 Lactulose 20 gm PEG/G-TUBE BID@0900,209903/07/21 03/23/21 Magnesium Hydroxide [Milk of 7,200 mg PEG/G-TUBE Q72H PRN 03/07/21 03/23/21 Magnesia Concentrate] Metoprolol Tartrate [Lopressor] 75 mg PEG/G-TUBE BID@0900,209903/07/21 03/23/21 0.9 % Sodium Chloride [Sodium 10 ml IV Q8H 03/23/21 03/23/21 Chloride Flush] guaiFENesin-DM 100-10MG/5ML 10 ml PEG/G-TUBE Q6H PRN 03/23/21 03/23/21 [Robitussin DM] Previous Rx's Medication Instructions Recorded Lacosamide [Vimpat] 150 mg PEG/G-TUBE BID@899,2099 #6 03/15/21 tab Allergies Allergy/AdvReac Type Severity Reaction Status Date / Time meropenem [From Merrem] Allergy Rash/Hives Verified 03/23/21 22:20 Review of Systems ROS Statement: Those systems with pertinent positive or pertinent negative responses have been documented in the HPI. ROS Other: All systems not noted in ROS Statement are negative. Past Medical History Past Medical History: Deep Vein Thrombosis (DVT), GERD/Reflux, Hypertension, Musculoskeletal Disorder, Neurologic Disorder, Pneumonia, Seizure Disorder, Skin Disorder Additional Past Medical History / Comment(s): Pt diagnosed with MS at the age of 39 yrs, eizure/pneumonia/UTI with sepsis/respirtory failure/vented, cognitive impairment, sister states when he is feeling well he could speak a few words/nod head appropriately/give thumbs up/roll eyes but when ill is nonverbal, pt has dysphagia/NPO with peg tube, contractures, last seizure 07/2020, trigeminal neuralgia, dysarthria/anarthria/neurogenic bladder with IDC-UTIs/sepsis, multiple pneumonias, recent seizure-last one 07/03/20, incontinent of stool, pt has had decubitus ulcer coccyx-sister unsure of skin condition at this time, past anemia r/t heparin/epistaxiis which involved nasal packing/transfusions, DVT bilateral arms, hypoxia, oxygen at 2L/NC, L femoral head fracture History of Any Multi-Drug Resistant Organisms: ESBL, MRSA Date of last positivie culture/infection: 03/09/21-MRSA; 11/23/19 ESBL-E.coli MDRO Source:: Abdomen-Peg site MRSA; Urine -ESBL Past Surgical History: Tonsillectomy Additional Past Surgical History / Comment(s): Gastrostomy, peg tube, I&D coccyx decubitius, bronchoscopy, bilateral lasik eye surgery. Past Anesthesia/Blood Transfusion Reactions: No Reported Reaction Additional Past Anesthesia/Blood Transfusion Reaction / Comment(s): Pt has received blood in past without reaction. Past Psychological History: Depression Smoking Status: Never smoker - Past Family History Father Family Medical History: Myocardial Infarction ([place]) Mother Family Medical History: Hypertension, Myocardial Infarction ([place]) Additional Family Medical History / Comment(s): Mother of a [place] at the age of 73 yrs. General Exam Limitations: physical limitation General appearance: alert, in no apparent distress, anxious Head exam: Present: atraumatic, normocephalic, normal inspection Eye exam: Present: normal appearance, PERRL, EOMI. Absent: scleral icterus, conjunctival injection, periorbital swelling ENT exam: Present: normal exam, mucous membranes moist Neck exam: Present: normal inspection. Absent: tenderness, meningismus, lymphadenopathy Respiratory exam: Present: normal lung sounds bilaterally, wheezes. Absent: respiratory distress, rales, rhonchi, stridor Cardiovascular Exam: Present: normal rhythm, tachycardia, normal heart sounds. Absent: systolic murmur, diastolic murmur, rubs, gallop, clicks GI/Abdominal exam: Present: soft, normal bowel sounds. Absent: distended, tenderness, guarding, rebound, rigid Extremities exam: Present: normal inspection, full ROM, normal capillary refill. Absent: tenderness, pedal edema, joint swelling, calf tenderness Back exam: Present: normal inspection Neurological exam: Present: alert, oriented X3, CN II-XII intact Psychiatric exam: Present: normal affect, normal mood Skin exam: Present: warm, dry, intact, normal color. Absent: rash Course Vital Signs 06/23/21 06/23/21 06/23/21 22:02 22:35 23:12 Temperature 99.0 F Pulse Rate 120 H 99 Respiratory 22 22 19 Rate Blood Pressure 104/70 127/83 O2 Sat by Pulse 99 99 Oximetry 03/23/21 03/23/21 03/23/21 23:17 23:25 23:31 Temperature Pulse Rate 112 H 112 H 110 H Respiratory 18 Rate Blood Pressure 126/92 O2 Sat by Pulse 97 Oximetry - Reevaluation(s) Reevaluation #1: 03/24/21 00:20 Medical record is reviewed Reevaluation #2: 03/24/21 00:21 Symptoms are controlled here in the emergency department Reevaluation #3: 03/24/21 00:21 Patient be admitted for IV antibiotics and monitoring of troponin Medical Decision Making - Medical Decision Making 60 male DF for evaluation patient Dese twice in a care facility metal lodged for aspiration. Low oxygen. Patient be admitted for continued supplemental O2 breathing treatments as needed - Lab Data Result diagrams: 03/23/21 22:30 03/23/21 22:30 Lab Results 03/23/21 03/23/21 03/23/21 Range/Units 22:30 22:30 22:30 WBC 11.6 H (3.8-10.6) k/uL RBC 5.10 (4.30-5.90) m/uL Hgb 13.5 (13.0-17.5) gm/dL Hct 41.1 (39.0-53.0) % MCV 80.6 (80.0-100.0) fL MCH 26.4 (25.0-35.0) pg MCHC 32.8 (31.0-37.0) g/dL RDW 16.1 H (11.5-15.5) % Plt Count 393 (150-450) k/uL MPV 8.1 Neutrophils % 82 % Lymphocytes % 9 % Monocytes % 5 % Eosinophils % 2 % Basophils % 1 % Neutrophils # 9.6 H (1.3-7.7) k/uL Lymphocytes # 1.0 (1.0-4.8) k/uL Monocytes # 0.6 (0-1.0) k/uL Eosinophils # 0.2 (0-0.7) k/uL Basophils # 0.1 (0-0.2) k/uL Anisocytosis Slight PT (9.0-12.0) sec INR (<1.2) APTT (22.0-30.0) sec Sodium 139 (137-145) mmol/L Potassium 4.2 (3.5-5.1) mmol/L Chloride 104 (98-107) mmol/L Carbon Dioxide 23 (22-30) mmol/L Anion Gap 12 mmol/L BUN 25 H (9-20) mg/dL Creatinine 0.63 L (0.66-1.25) mg/dL Est GFR (CKD-EPI)AfAm >90 (>60 ml/min/1.73 sqM) Est GFR (CKD-EPI)NonAf >90 (>60 ml/min/1.73 sqM) Glucose 114 H (74-99) mg/dL Plasma Lactic Acid Taurus (0.7-2.0) mmol/L Calcium 9.7 (8.4-10.2) mg/dL Phosphorus 4.8 H (2.5-4.5) mg/dL Magnesium 2.1 (1.6-2.3) mg/dL Total Bilirubin 0.2 (0.2-1.3) mg/dL AST 24 (17-59) U/L ALT 17 (4-49) U/L Alkaline Phosphatase 148 H (38-126) U/L Creatine Kinase 45 L (55-170) U/L Troponin I (0.000-0.034) ng/mL NT-Pro-B Natriuret Pep pg/mL Total Protein 8.1 (6.3-8.2) g/dL Albumin 4.3 (3.5-5.0) g/dL Urine Color Yellow Urine Appearance Clear (Clear) Urine pH 6.0 (5.0-8.0) Ur Specific [place] 1.025 (1.001-1.035) Urine Protein 2+ H (Negative) Urine Glucose (UA) Negative (Negative) Urine Ketones Negative (Negative) Urine Blood Negative (Negative) Urine Nitrite Negative (Negative) Urine Bilirubin Negative (Negative) Urine Urobilinogen <2.0 (<2.0) mg/dL Ur Leukocyte Esterase Trace H (Negative) Urine RBC 4 (0-5) /hpf Urine WBC 3 (0-5) /hpf Ur Squamous Epith Cells <1 (0-4) /hpf Hyaline Casts 5 H (0-2) /lpf Granular Casts 1 (0) /lpf Urine Mucus Rare H (None) /hpf 03/23/21 03/23/21 03/23/21 Range/Units 22:30 22:30 22:30 WBC (3.8-10.6) k/uL RBC (4.30-5.90) m/uL Hgb (13.0-17.5) gm/dL Hct (39.0-53.0) % MCV (80.0-100.0) fL MCH (25.0-35.0) pg MCHC (31.0-37.0) g/dL RDW (11.5-15.5) % Plt Count (150-450) k/uL MPV Neutrophils % % Lymphocytes % % Monocytes % % Eosinophils % % Basophils % % Neutrophils # (1.3-7.7) k/uL Lymphocytes # (1.0-4.8) k/uL Monocytes # (0-1.0) k/uL Eosinophils # (0-0.7) k/uL Basophils # (0-0.2) k/uL Anisocytosis PT (9.0-12.0) sec INR (<1.2) APTT (22.0-30.0) sec Sodium (137-145) mmol/L Potassium (3.5-5.1) mmol/L Chloride (98-107) mmol/L Carbon Dioxide (22-30) mmol/L Anion Gap mmol/L BUN (9-20) mg/dL Creatinine (0.66-1.25) mg/dL Est GFR (CKD-EPI)AfAm (>60 ml/min/1.73 sqM) Est GFR (CKD-EPI)NonAf (>60 ml/min/1.73 sqM) Glucose (74-99) mg/dL Plasma Lactic Acid [place] 0.9 (0.7-2.0) mmol/L Calcium (8.4-10.2) mg/dL Phosphorus (2.5-4.5) mg/dL Magnesium (1.6-2.3) mg/dL Total Bilirubin (0.2-1.3) mg/dL AST (17-59) U/L ALT (4-49) U/L Alkaline Phosphatase (38-126) U/L Creatine Kinase (55-170) U/L Troponin I 0.086 H* (0.000-0.034) ng/mL NT-Pro-B Natriuret Pep 416 pg/mL Total Protein (6.3-8.2) g/dL Albumin (3.5-5.0) g/dL Urine Color Urine Appearance (Clear) Urine pH (5.0-8.0) Ur Specific [place] (1.001-1.035) Urine Protein (Negative) Urine Glucose (UA) (Negative) Urine Ketones (Negative) Urine Blood (Negative) Urine Nitrite (Negative) Urine Bilirubin (Negative) Urine Urobilinogen (<2.0) mg/dL Ur Leukocyte Esterase (Negative) Urine RBC (0-5) /hpf Urine WBC (0-5) /hpf Ur Squamous Epith Cells (0-4) /hpf Hyaline Casts (0-2) /lpf Granular Casts (0) /lpf Urine Mucus (None) /hpf // Range/Units 23:02 WBC (3.8-10.6) k/uL RBC (4.30-5.90) m/uL Hgb (13.0-17.5) gm/dL Hct (39.0-53.0) % MCV (80.0-100.0) fL MCH (25.0-35.0) pg MCHC (31.0-37.0) g/dL RDW (11.5-15.5) % Plt Count (150-450) k/uL MPV Neutrophils % % Lymphocytes % % Monocytes % % Eosinophils % % Basophils % % Neutrophils # (1.3-7.7) k/uL Lymphocytes # (1.0-4.8) k/uL Monocytes # (0-1.0) k/uL Eosinophils # (0-0.7) k/uL Basophils # (0-0.2) k/uL Anisocytosis PT 11.1 (9.0-12.0) sec INR 1.0 (<1.2) APTT 23.8 (22.0-30.0) sec Sodium (137-145) mmol/L Potassium (3.5-5.1) mmol/L Chloride (98-107) mmol/L Carbon Dioxide (22-30) mmol/L Anion Gap mmol/L BUN (9-20) mg/dL Creatinine (0.66-1.25) mg/dL Est GFR (CKD-EPI)AfAm (>60 ml/min/1.73 sqM) Est GFR (CKD-EPI)NonAf (>60 ml/min/1.73 sqM) Glucose (74-99) mg/dL Plasma Lactic Acid [place] (0.7-2.0) mmol/L Calcium (8.4-10.2) mg/dL Phosphorus (2.5-4.5) mg/dL Magnesium (1.6-2.3) mg/dL Total Bilirubin (0.2-1.3) mg/dL AST (17-59) U/L ALT (4-49) U/L Alkaline Phosphatase (38-126) U/L Creatine Kinase (55-170) U/L Troponin I (0.000-0.034) ng/mL NT-Pro-B Natriuret Pep pg/mL Total Protein (6.3-8.2) g/dL Albumin (3.5-5.0) g/dL Urine Color Urine Appearance (Clear) Urine pH (5.0-8.0) Ur Specific [place] (1.001-1.035) Urine Protein (Negative) Urine Glucose (UA) (Negative) Urine Ketones (Negative) Urine Blood (Negative) Urine Nitrite (Negative) Urine Bilirubin (Negative) Urine Urobilinogen (<2.0) mg/dL Ur Leukocyte Esterase (Negative) Urine RBC (0-5) /hpf Urine WBC (0-5) /hpf Ur Squamous Epith Cells (0-4) /hpf Hyaline Casts (0-2) /lpf Granular Casts (0) /lpf Urine Mucus (None) /hpf - EKG Data -: EKG Interpreted by Me (EKG shows sinus tachycardia 110. 174 QRS 80 QTC 435) - Radiology Data Radiology results: report reviewed (Chest x-rays negative for acute disease), image reviewed Disposition Clinical Impression: Aspiration pneumonia, Tachycardia Disposition: ADMITTED IP TO THIS HOSP Condition: Fair Is patient prescribed a controlled substance at d/c from ED?: No Referrals: Matteo Hernandez MD [Primary Care Provider] - 1-2 days
[2021-03-23 22:51] LABS: Anisocytosis Slight; Basophils # (A) 0.1 k/uL (0-0.2); Basophils % (A) 1 %; Eosinophils # (A) 0.2 k/uL (0-0.7); Eosinophils % (A) 2 %; HCT 41.1 % (39.0-53.0); HGB 13.5 gm/dL (13.0-17.5); Lymphocytes % (A) 9 %; MCH 26.4 pg (25.0-35.0); MCHC 32.8 g/dL (31.0-37.0); MCV 80.6 fL (80.0-100.0); Mean Platelet Volume 8.1; Monocytes # (A) 0.6 k/uL (0-1.0); Monocytes % (A) 5 %; Neutrophils # (A) 9.6 k/uL (1.3-7.7); Neutrophils % (A) 82 %; Platelet Count 393 k/uL (150-450); RDW 16.1 % (11.5-15.5); WBC 11.6 k/uL (3.8-10.6)
[2021-03-23 23:19] LABS: Appearance,Urine Clear (Clear); Bilirubin,Urine Negative (Negative); Blood,Urine Negative (Negative); Color,Urine Yellow; Glucose,Urine (UA) Negative (Negative); Granular Casts,Urine 1 /lpf (0); Hyaline Casts,Urine 5 /lpf (0-2); Ketones,Urine Negative (Negative); Leukocyte Esterase,Urine Trace (Negative); Mucus,Urine Rare /hpf; Nitrite,Urine Negative (Negative); Protein,Urine 2+ (Negative); RBC,Urine 4 /hpf (0-5); Specific Gravity,Urine 1.025 (1.001-1.035); Squamous Epithelial Cell,Urine <1 /hpf (0-4); Urobilinogen,Urine <2.0 mg/dL (<2.0); WBC,Urine 3 /hpf (0-5)
[2021-03-23 23:32] LABS: Partial Thromboplastin Time 23.8 sec (22.0-30.0); Prothrombin Time 11.1 sec (9.0-12.0)
[2021-03-23 23:33] LABS: ALT 17 U/L (4-49); AST 24 U/L (17-59); African American GFR (CKD) >90 (>60 ml/min/1.73 sqM); Albumin 4.3 g/dL (3.5-5.0); Alkaline Phosphatase 148 U/L (38-126); Anion Gap 12 mmol/L; Blood Urea Nitrogen 25 mg/dL (9-20); Calcium 9.7 mg/dL (8.4-10.2); Carbon Dioxide 23 mmol/L (22-30); Chloride 104 mmol/L (98-107); Creatine Kinase 45 U/L (55-170); Glucose 114 mg/dL (74-99); Magnesium 2.1 mg/dL (1.6-2.3); Non-African American GFR(CKD) >90 (>60 ml/min/1.73 sqM); Phosphorus 4.8 mg/dL (2.5-4.5); Potassium 4.2 mmol/L (3.5-5.1); Sodium 139 mmol/L (137-145); Total Bilirubin 0.2 mg/dL (0.2-1.3); Total Protein 8.1 g/dL (6.3-8.2)
--- NOTE | 2021-03-23 23:34 | XR ---
EXAMINATION TYPE: XR chest 1V portable DATE OF EXAM: 03/23/2021 COMPARISON: 03/14/2021 HISTORY: Weakness TECHNIQUE: FINDINGS: There is no heart failure nor confluent pneumonic infiltrate. There are chest leads. There are no hilar masses. Costophrenic angles are fairly clear. There is minimal subsegmental atelectasis right midlung. IMPRESSION: Minimal subsegmental atelectasis. No change compared to old exam. No heart failure.
[2021-03-24] MEDS ORDERED: PNEUMONIA PROTOCOL UTILIZED 1 EACH MISC PO PRN (00:10)
[2021-03-24] MEDS ORDERED: AZITHROMYCIN 500 MG in SODIUM CHLORIDE 0.9% 250 ML IVPB ONE ×2 (00:30→02:00)
[2021-03-24] MEDS: SODIUM CHLORIDE 0.9% 1,000 ML IV SCH ×3 (02:04→20:12)
[2021-03-24] MEDS: metroNIDAZOLE-NS PMX 500 MG in SALINE 1 100ML.BAG IVPB SCH ×3 (03:18→18:30)
[2021-03-24] MEDS: IPRATROPIUM-ALBUTEROL 3 ML NEB INHALATION PRN ×4 (07:37→20:30)
[2021-03-24 07:48] LABS: Anisocytosis Slight; Basophils % (A) 0 %; Eosinophils # (A) 0.2 k/uL (0-0.7); Eosinophils % (A) 1 %; HCT 37.1 % (39.0-53.0); HGB 12.1 gm/dL (13.0-17.5); Lymphocytes # (A) 0.8 k/uL (1.0-4.8); Lymphocytes % (A) 4 %; MCH 26.8 pg (25.0-35.0); MCHC 32.5 g/dL (31.0-37.0); MCV 82.4 fL (80.0-100.0); Mean Platelet Volume 7.7; Monocytes # (A) 0.6 k/uL (0-1.0); Monocytes % (A) 3 %; Neutrophils # (A) 20.1 k/uL (1.3-7.7); Neutrophils % (A) 92 %; Platelet Count 347 k/uL (150-450); RDW 16.1 % (11.5-15.5); WBC 21.9 k/uL (3.8-10.6)
[2021-03-24 07:55] LABS: Anion Gap 9 mmol/L; Blood Urea Nitrogen 22 mg/dL (9-20); Carbon Dioxide 21 mmol/L (22-30); Chloride 109 mmol/L (98-107); Glucose 121 mg/dL (74-99); Potassium 4.1 mmol/L (3.5-5.1); Sodium 139 mmol/L (137-145)
[2021-03-24 07:56] LABS: African American GFR (CKD) >90 (>60 ml/min/1.73 sqM); Calcium 8.7 mg/dL (8.4-10.2); Non-African American GFR(CKD) >90 (>60 ml/min/1.73 sqM)
[2021-03-24] MEDS ORDERED: guaiFENesin-DM 100-10MG/5ML 10 ML CUP PEG/G-TUBE PRN (08:45)
[2021-03-24] MEDS ORDERED: MAGNESIUM HYDROXIDE 2,400 MG/10 ML CUP PEG/G-TUBE PRN (08:45)
[2021-03-24] MEDS: NON FORMULARY DRUG (Cranberry Fruit Extract [Cranberry] 500 MG Tablet) PEG/G-TUBE SCH (10:10)
[2021-03-24] MEDS: METOPROLOL TARTRATE 25 MG TAB PEG/G-TUBE SCH ×2 (10:13→20:09)
[2021-03-24] MEDS: ASPIRIN 81 MG PEG/G-TUBE SCH (10:13)
[2021-03-24] MEDS: LACTULOSE 20 GM/30 ML CUP PEG/G-TUBE SCH ×2 (10:14→20:09)
[2021-03-24] MEDS: CHOLECALCIFEROL 25 MCG (1000 IU) TABLET PEG/G-TUBE SCH (10:14)
[2021-03-24] MEDS: DOCUSATE ORAL SOLN 100 MG/10 ML CUP PEG/G-TUBE SCH ×2 (10:14→20:09)
[2021-03-24] MEDS: LACOSAMIDE 150 MG TABLET PEG/G-TUBE SCH ×2 (10:14→20:09)
[2021-03-24] MEDS: carBAMazepine 200 MG TAB PEG/G-TUBE SCH ×2 (10:14→20:10)
[2021-03-24] MEDS: SCOPOLAMINE 1.5MG/72HR PATCH TRANSDERM SCH (10:14)
[2021-03-24] MEDS: ACETAMINOPHEN ORAL SUSP (PEDS) 3,840 MG/120 ML BOTTLE PEG/G-TUBE PRN (10:15)
--- NOTE | 2021-03-24 13:09 | P.CNPUL ---
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 Patient has a PEG tube in place for enteral feedings. Patient is nonverbal, does not follow commands, he is very cachectic and debilitated, he is bedbound, resides in the [facility]. Patient's legal guardian is his sister, and despite multiple episodes of aspiration pneumonia and intubation, had refused tracheostomy placement in the past, and has been very firm about keeping the patient a full code, despite his multiple medical problems, quite poor and debilitated condition, and recurrent episodes of respiratory failure related to aspiration. Patient also developed nonhealing ulcerations including his right calcaneus, and nonhealing ulceration of the abdomen, he was seen by the home care services. Patient does have history of ESBL E. coli urinary tract infection, and MRSA and pseudomonal pneumonia. Most recent cultures from his abdomen were positive for MRSA, urine culture on 03/07/2021 was positive for pseudomonas aeruginosa and enterococcus faecalis. Patient had recent hospitalization from 03/09/2021 through 03/15/2021 for another episode of aspiration pneumonia in the right lower lobe, and wound infection and cellulitis of the PEG tube site wound with cultures positive for MRSA. During that same admission he had a urine culture positive for Pseudomonas and enterococcus. He was discharged to the [facility] on 5 days of IV antibiotic course in the form of cefepime per ID service. On 03/23/2021 patient was taken to the emergency department per EMS for evaluation of shortness of breath, cough, and stability of aspiration. Patient also had a low oxygen saturations at that intermediate. His chest x-ray showed no acute cardiopulmonary process. EKG showed sinus tachycardia. Admission blood work was reviewed showing white blood cell count of 11.6, hemoglobin is 13.5, electrolytes are within normal limits, BUN is 25, creatinine 0.63, patient had elevated troponins of 0.086, and 0.101. BNP was 416, urinalysis showed 2+ protein, trace leuks, and no clear evidence of infection, COVID-19 PCR was negative. Patient was febrile, he remains tachycardic, he was started on antibiotics in the form of azithromycin and Rocephin, and ID service has been consulted for recommendations regarding the antibiotics. IV fluids infusing at a rate of 100 ML per hour, he is resting quietly in bed, he is lethargic, but he opens eyes occasionally to voice, does not appear to be in acute distress, he is nonverbal, and is not able to follow command. Blood cultures and sputum cultures have been ordered. Sputum culture has not yet been collected as the patient is not bringing up any phlegm. Review of Systems ROS unobtainable: due to mental status All systems: negative Constitutional: Denies chills, Denies fever Eyes: denies blurred vision, denies pain Ears, nose, mouth and throat: Denies headache, Denies sore throat Cardiovascular: Denies chest pain, Denies shortness of breath Respiratory: Reports congestion, Reports dyspnea, Reports respiratory infections, Denies cough Gastrointestinal: Denies abdominal pain, Denies diarrhea, Denies nausea, Denies vomiting Musculoskeletal: Denies myalgias Integumentary: Denies pruritus, Denies rash Neurological: Denies numbness, Denies weakness Psychiatric: Denies anxiety, Denies depression Endocrine: Denies fatigue, Denies weight change Past Medical History Past Medical History: Deep Vein Thrombosis (DVT), GERD/Reflux, Hypertension, Musculoskeletal Disorder, Neurologic Disorder, Pneumonia, Seizure Disorder, Skin Disorder Additional Past Medical History / Comment(s): Pt diagnosed with MS at the age of 39 yrs, eizure/pneumonia/UTI with sepsis/respirtory failure/vented, cognitive impairment, sister states when he is feeling well he could speak a few words/nod head appropriately/give thumbs up/roll eyes but when ill is nonverbal, pt has dysphagia/NPO with peg tube, contractures, last seizure 07/2020, trigeminal neuralgia, dysarthria/anarthria/neurogenic bladder with IDC-UTIs/sepsis, multiple pneumonias, recent seizure-last one 07/03/20, incontinent of stool, pt has had decubitus ulcer coccyx-sister unsure of skin condition at this time, past anemia r/t heparin/epistaxiis which involved nasal packing/transfusions, DVT bilateral arms, hypoxia, oxygen at 2L/NC, L femoral head fracture History of Any Multi-Drug Resistant Organisms: ESBL, MRSA Date of last positivie culture/infection: 03/09/21-MRSA; 11/23/19 ESBL-E.coli MDRO Source:: Abdomen-Peg site MRSA; Urine -ESBL Past Surgical History: Tonsillectomy Additional Past Surgical History / Comment(s): Gastrostomy, peg tube, I&D coccyx decubitius, bronchoscopy, bilateral lasik eye surgery. Past Anesthesia/Blood Transfusion Reactions: No Reported Reaction Additional Past Anesthesia/Blood Transfusion Reaction / Comment(s): Pt has received blood in past without reaction. Past Psychological History: Depression Additional Psychological History / Comment(s): Pt resides at [facility]. He normally is in bed/amita lift to wheelchair. Has peg/IDC Smoking Status: Never smoker Past Alcohol Use History: None Reported Past Drug Use History: None Reported - Past Family History Father Family Medical History: Myocardial Infarction ([place]) Mother Family Medical History: Hypertension, Myocardial Infarction ([place]) Additional Family Medical History / Comment(s): Mother of a [place] at the age of 73 yrs. Medications and Allergies Home Medications Medication Instructions Recorded Confirmed Type Cholecalciferol [Vitamin D3 (25 1,000 unit PEG/G-TUBE DAILY@0900 12/28/17 03/23/21 History Mcg = 1000 Iu)] Acetaminophen Oral Susp [Tylenol] 320 mg PEG/G-TUBE Q6H PRN 01/26/19 03/23/21 Hi story Oxybutynin Chloride [Ditropan Oral 5 mg PEG/G-TUBE TID@0600,1400,2200 09/08/19 03/23/21 History Soln] Ipratropium-Albuterol Nebulize 3 ml INHALATION RT-Q6H PRN 12/16/19 03/23/21 History [Duoneb 0.5 mg-3 mg/3 ml Soln] Baclofen [Lioresal] 10 mg PEG/G-TUBE TID@0600,1400,2200 07/16/20 03/23/21 History carBAMazepine [TEGretol] 200 mg PEG/G-TUBE BID@0900,2100 10/30/20 06/23/21 Hi story Scopolamine [Scopolamine 1 MG/72 1 patch TRANSDERM Q72H 09/07/20 03/23/21 History HR patch] Aspirin 81 mg PEG/G-TUBE DAILY@0900 11/27/20 03/23/21 History Cranberry Fruit Extract [Cranberry] 500 mg PEG/G-TUBE DAILY@0911/27/20 03/23/21 History amantadine HCL [Amantadine] 100 mg PEG/G-TUBE DAILY@0911/27/20 03/23/21 History Docusate Oral Soln [Colace Oral 100 mg PEG/G-TUBE BID@0900,209903/07/21 03/23/21 History Soln] Famotidine [Pepcid] 20 mg PEG/G-TUBE HS 03/07/21 03/23/21 History Lactulose 20 gm PEG/G-TUBE BID@0900,209903/07/21 03/23/21 History Magnesium Hydroxide [Milk of 7,200 mg PEG/G-TUBE Q72H PRN 03/07/21 03/23/21 History Magnesia Concentrate] Metoprolol Tartrate [Lopressor] 75 mg PEG/G-TUBE BID@0900,209903/07/21 03/23/21 History Lacosamide [Vimpat] 150 mg PEG/G-TUBE BID@0900,2100 #6 03/15/21 03/23/21 Rx tab 0.9 % Sodium Chloride [Sodium 10 ml IV Q8H 03/23/21 03/23/21 History Chloride Flush] guaiFENesin-DM 100-10MG/5ML 10 ml PEG/G-TUBE Q6H PRN 03/23/21 03/23/21 History [Robitussin DM] Allergies Allergy/AdvReac Type Severity Reaction Status Date / Time meropenem [From Merrem] Allergy Rash/Hives Verified 03/23/21 22:20 Physical Exam Vitals: Vital Signs Temp Pulse Pulse Resp BP BP Pulse Ox 03/24/21 11:48 108 H 03/24/21 11:35 100 03/24/21 08:28 100.0 F H 125 H 21 111/64 96 03/24/21 07:46 106 H 03/24/21 07:38 104 H 03/24/21 04:00 99.5 F 108 H 22 124/83 96 03/24/21 02:33 98.4 F 109 H 21 127/84 97 03/24/21 01:22 99.1 F 89 18 129/87 97 03/24/21 01:01 90 18 121/85 99 03/24/21 00:10 92 19 111/79 99 03/23/21 23:31 110 H 18 126/92 97 03/23/21 23:25 112 H 03/23/21 23:17 112 H 03/23/21 23:12 99 19 127/83 99 03/23/21 22:35 22 03/23/21 22:02 99.0 F 120 H 22 104/70 99 Intake and Output 03/23/21 03/24/21 03/24/21 22:59 06:59 14:59 Intake Total 0 Output Total 500 Balance -500 0 Intake: Oral 0 Output: Urine 500 Other: Voiding Method Indwelling Catheter Weight 75 kg 75 kg 75 kg GENERAL EXAM: Somnolent, nonverbal, cachectic looking, 60-year-old white male, on 2 L of oxygen, the pulse ox of 94%, arousable occasionally to voice, unable to assess orientation due to patient's mental status HEAD: Normocephalic/atraumatic. EYES: Normal reaction of pupils, equal size. Conjunctiva pink, sclera white. NOSE: Clear with pink turbinates. THROAT: No erythema or exudates. NECK: No masses, no JVD, no thyroid enlargement, no adenopathy. CHEST: No chest wall deformity. Symmetrical expansion. LUNGS: Equal air entry with diminished breath sounds CVS: Regular rate and rhythm, normal S1 and S2, no gallops, no murmurs, no rubs ABDOMEN: Soft, nontender. No hepatosplenomegaly, normal bowel sounds, no guarding or rigidity. PEG tube is in place EXTREMITIES: No clubbing, no edema, no cyanosis, 2+ pulses and upper and lower extremities. MUSCULOSKELETAL: Patient is cachectic, with chronic contractures of upper and lower extremities SPINE: No scoliosis or deformity SKIN: No rashes, patient has chronic wound on his right calcaneus, covered with a dressing CENTRAL NERVOUS SYSTEM: Somnolent, occasionally arousable to voice, not responding verbally. Results - Laboratory Findings CBC and BMP: 03/24/21 07:24 03/24/21 07:24 PT/INR, D-dimer PT 11.1 sec (9.0-12.0) 03/23/21 23:02 INR 1.0 (<1.2) 03/23/21 23:02 Abnormal lab findings: Abnormal Labs 03/23/21 03/23/21 03/23/21 22:30 22:30 22:30 WBC 11.6 H Hgb Hct RDW 16.1 H Neutrophils # 9.6 H Lymphocytes # Chloride Carbon Dioxide BUN 25 H Creatinine 0.63 L Glucose 114 H Phosphorus 4.8 H Alkaline Phosphatase 148 H Creatine Kinase 45 L Troponin I Urine Protein 2+ H Ur Leukocyte Esterase Trace H Hyaline Casts 5 H Urine Mucus Rare H 03/23/21 03/24/21 03/24/21 22:30 07:24 07:24 WBC 21.9 H Hgb 12.1 L Hct 37.1 L RDW 16.1 H Neutrophils # 20.1 H Lymphocytes # 0.8 L Chloride 109 H Carbon Dioxide 21 L BUN 22 H Creatinine 0.54 L Glucose 121 H Phosphorus Alkaline Phosphatase Creatine Kinase Troponin I 0.086 H* Urine Protein Ur Leukocyte Esterase Hyaline Casts Urine Mucus 03/24/21 07:24 WBC Hgb Hct RDW Neutrophils # Lymphocytes # Chloride Carbon Dioxide BUN Creatinine Glucose Phosphorus Alkaline Phosphatase Creatine Kinase Troponin I 0.101 H* Urine Protein Ur Leukocyte Esterase Hyaline Casts Urine Mucus - Diagnostic Findings Chest x-ray: report reviewed, image reviewed Additional studies: EKG reviewed Assessment and Plan Plan: Assessment: #1. Acute hypoxic respiratory failure related to possibility of aspiration, COVID-19 test was negative, chest x-ray showed no evidence of acute cardiopulmonary disease, patient presented from the [facility] with complaints of worsening cough, and low oxygen saturations #2. Recurrent episodes of aspiration pneumonia and intubation and placement on mechanical ventilator #3. Recent hospitalization from 03/09/2021 through 03/15/2021 for aspiration pneumonia, and wound infection involving the abdomen, right calcaneus #4. Recent pseudomonal and enterococcus urinary tract infection, completed course of cefepime, repeat UA shows no clear evidence of UTI #5. History of ESBL E. coli urinary tract infection #6. Recent MRSA infection involving the abdominal wound on the culture from 03/09/2021 #7. History of MRSA and pseudomonal pneumonia, which could probably related to chronic colonization #8. Advanced multiple sclerosis, with secondary dysphagia, dysarthria, and the patient is bedridden #9. History of seizure disorder #10. Neurogenic bladder #11. History of DVT #12. Hypertension #13. Bowel incontinence #14. History of chronic sacral decubitus ulcer #15. Chronic medical debility, impaired mobility, chronic cognitive impairment, chronic contractures of upper and lower extremities Plan: We will probably need to broaden patient's antibiotic coverage However ID service has been consulted and we will let Dr. Farah make the decision on antibiotics Maintain aspiration precautions Requiring minimal supplemental oxygen PEG tube feedings per RG recommendations Neurology consultation requested in regards to patient's prognosis in terms of his underlying MS Recommend addressing CODE STATUS again with patient's sister who is a legal gua rdian In the past she has declined a tracheostomy tube, and patient continues to be a full code Prognosis is quite poor We'll continue to follow I performed a history & physical examination of the patient and discussed their management with my nurse practitioner, Naheed Pace. I reviewed the nurse practitioner's note and agree with the documented findings and plan of care. Lung sounds are positive for diminished breath sounds. The findings and the impression was discussed with the patient. I attest to the documentation by the nurse practitioner. Time with Patient: Greater than 30
--- NOTE | 2021-03-24 13:10 | P.CONS ---
History of Present Illness - Reason for Consult Consult date: 03/24/21 wound care - History of Present Illness This is a 60-year-old patient who is a resident at medical [facility] with a past medical history for MS, deep vein thrombosis, GERD, hypertension, seizures, cognitive impairment, contractures, PEG tube placement, indwelling catheter for neurogenic bladder. Patient presents with a stage II pressure ulcer to the coccyx Limited to skin breakdown. Ulceration shows granulation throughout wound bed with minimal slough. periwound Shows scarring. The right calcaneus has a stage II ulceration Limited to skin breakdown. Granulation seen throughout wound bed. Wound edges are attached to the wound base there is minimal to no slough to the site. Review of systems: Unable to answer questions due to mental status Physical exam: General Appearance: Alert, cooperative, no distress, appears stated age. Skin: See HPI all other Skin color, texture, tugor normal, no rashes or lesions. Neurologic: Alert oriented x3 Assessment: 1. Stage II pressure ulcer coccyx Limited to skin breakdown 2. Stage II pressure ulcer right calcaneus Limited to skin breakdown Plan: 1. Apply a zinc barrier cream to the coccyx daily. Turn patient every 2 hours. Utilize the surface algorithm for the appropriate surface. 2. Right calcaneus: Apply collagen, saline moistened gauze, foam, rolled gauze and secure with tape. Change Sunday. May utilize foam heel protectors as needed. Thank you for the consultation any questions please contact the wound care center DNP note has been reviewed and discussed with Dr. Martin and the impression and plan of care has been directed as dictated. Past Medical History Past Medical History: Deep Vein Thrombosis (DVT), GERD/Reflux, Hypertension, Musculoskeletal Disorder, Neurologic Disorder, Pneumonia, Seizure Disorder, Skin Disorder Additional Past Medical History / Comment(s): Pt diagnosed with MS at the age of 39 yrs, eizure/pneumonia/UTI with sepsis/respirtory failure/vented, cognitive impairment, sister states when he is feeling well he could speak a few words/nod head appropriately/give thumbs up/roll eyes but when ill is nonverbal, pt has dysphagia/NPO with peg tube, contractures, last seizure 07/2020, trigeminal neuralgia, dysarthria/anarthria/neurogenic bladder with IDC-UTIs/sepsis, multiple pneumonias, recent seizure-last one 07/03/20, incontinent of stool, pt has had decubitus ulcer coccyx-sister unsure of skin condition at this time, p ast anemia r/t heparin/epistaxiis which involved nasal packing/transfusions, DVT bilateral arms, hypoxia, oxygen at 2L/NC, L femoral head fracture History of Any Multi-Drug Resistant Organisms: ESBL, MRSA Year Discovered:: 03/09/21-MRSA; 11/23/19 ESBL-E.coli MDRO Source:: Abdomen-Peg site MRSA; Urine -ESBL Past Surgical History: Tonsillectomy Additional Past Surgical History / Comment(s): Gastrostomy, peg tube, I&D coccyx decubitius, bronchoscopy, bilateral lasik eye surgery. Past Anesthesia/Blood Transfusion Reactions: No Reported Reaction Additional Past Anesthesia/Blood Transfusion Reaction / Comm: Pt has received blood in past without reaction. Past Psychological History: Depression Additional Psychological History / Comment(s): Pt resides at [facility]. He normally is in bed/amita lift to wheelchair. Has peg/IDC Smoking Status: Never smoker Past Alcohol Use History: None Reported Past Drug Use History: None Reported - Past Family History Father Family Medical History: Myocardial Infarction ([place]) Mother Family Medical History: Hypertension, Myocardial Infarction ([place]) Additional Family Medical History / Comment(s): Mother of a [place] at the age of 73 yrs. Medications and Allergies Home Medications Medication Instructions Recorded Confirmed Type Cholecalciferol [Vitamin D3 (25 1,000 unit PEG/G-TUBE DAILY@0900 12/28/17 03/23/21 History Mcg = 1000 Iu)] Acetaminophen Oral Susp [Tylenol] 320 mg PEG/G-TUBE Q6H PRN 01/26/19 03/23/21 History Oxybutynin Chloride [Ditropan Oral 5 mg PEG/G-TUBE TID@0600,1400,2200 09/08/19 03/23/21 History Soln] Ipratropium-Albuterol Nebulize 3 ml INHALATION RT-Q6H PRN 12/16/19 03/23/21 History [Duoneb 0.5 mg-3 mg/3 ml Soln] Baclofen [Lioresal] 10 mg PEG/G-TUBE TID@0600,1400,2200 07/16/20 03/23/21 History carBAMazepine [TEGretol] 200 mg PEG/G-TUBE BID@0900,209907/30/20 03/23/21 History Scopolamine [Scopolamine 1 MG/72 1 patch TRANSDERM Q72H 09/07/20 03/23/21 History HR patch] Aspirin 81 mg PEG/G-TUBE DAILY@0911/27/20 03/23/21 History Cranberry Fruit Extract [Cranberry] 500 mg PEG/G-TUBE DAILY@0911/27/20 03/23/21 History amantadine HCL [Amantadine] 100 mg PEG/G-TUBE DAILY@89911/27/20 03/23/21 History Docusate Oral Soln [Colace Oral 100 mg PEG/G-TUBE BID@0900,209903/07/21 03/23/21 History Soln] Famotidine [Pepcid] 20 mg PEG/G-TUBE HS 03/07/21 03/23/21 History Lactulose 20 gm PEG/G-TUBE BID@0900,209903/07/21 03/23/21 History Magnesium Hydroxide [Milk of 7,200 mg PEG/G-TUBE Q72H PRN 03/07/21 03/23/21 History Magnesia Concentrate] Metoprolol Tartrate [Lopressor] 75 mg PEG/G-TUBE BID@0900,209903/07/21 03/23/21 History Lacosamide [Vimpat] 150 mg PEG/G-TUBE BID@0900,2100 #6 03/15/21 03/23/21 Rx tab 0.9 % Sodium Chloride [Sodium 10 ml IV Q8H 03/23/21 03/23/21 History Chloride Flush] guaiFENesin-DM 100-10MG/5ML 10 ml PEG/G-TUBE Q6H PRN 03/23/21 03/23/21 History [Robitussin DM] Allergies Allergy/AdvReac Type Severity Reaction Status Date / Time meropenem [From Merrem] Allergy Rash/Hives Verified 03/23/21 22:20 Physical Exam Vitals: Vital Signs Temp Pulse Pulse Resp BP BP Pulse Ox 03/24/21 12:35 98.5 F 60 24 100/56 94 L 03/24/21 11:48 108 H 03/24/21 11:35 100 03/24/21 08:28 100.0 F H 125 H 21 111/64 96 03/24/21 07:46 106 H 03/24/21 07:38 104 H 03/24/21 04:00 99.5 F 108 H 22 124/83 96 03/24/21 02:33 98.4 F 109 H 21 127/84 97 03/24/21 01:22 99.1 F 89 18 129/87 97 03/24/21 01:01 90 18 121/85 99 03/24/21 00:10 92 19 111/79 99 03/23/21 23:31 110 H 18 126/92 97 03/23/21 23:25 112 H 03/23/21 23:17 112 H 03/23/21 23:12 99 19 127/83 99 03/23/21 22:35 22 03/23/21 22:02 99.0 F 120 H 22 104/70 99 Intake and Output 03/23/21 03/24/21 03/24/21 22:59 06:59 14:59 Intake Total 900 Output Total 500 225 Balance -500 675 Intake: Intake, IV Titration 100 Amount metroNIDAZOLE-NS PMX 500 100 mg In Saline 1 100ml.bag @ 100 mls/hr IVPB Q8H [facility] Rx#:[id number] Oral 800 Output: Urine 500 225 Other: Voiding Method Indwelling Catheter Weight 75 kg 75 kg 75 kg Results CBC & Chem 7: 03/24/21 07:24 03/24/21 07:24 Labs: Abnormal Lab Results - Last 24 Hours (Table) 03/23/21 03/23/21 03/23/21 Range/Units 22:30 22:30 22:30 WBC 11.6 H (3.8-10.6) k/uL Hgb (13.0-17.5) gm/dL Hct (39.0-53.0) % RDW 16.1 H (11.5-15.5) % Neutrophils # 9.6 H (1.3-7.7) k/uL Lymphocytes # (1.0-4.8) k/uL Chloride (98-107) mmol/L Carbon Dioxide (22-30) mmol/L BUN 25 H (9-20) mg/dL Creatinine 0.63 L (0.66-1.25) mg/dL Glucose 114 H (74-99) mg/dL Phosphorus 4.8 H (2.5-4.5) mg/dL Alkaline Phosphatase 148 H (38-126) U/L Creatine Kinase 45 L (55-170) U/L Troponin I (0.000-0.034) ng/mL Urine Protein 2+ H (Negative) Ur Leukocyte Esterase Trace H (Negative) Hyaline Casts 5 H (0-2) /lpf Urine Mucus Rare H (None) /hpf 03/23/21 03/24/21 03/24/21 Range/Units 22:30 07:24 07:24 WBC 21.9 H (3.8-10.6) k/uL Hgb 12.1 L (13.0-17.5) gm/dL Hct 37.1 L (39.0-53.0) % RDW 16.1 H (11.5-15.5) % Neutrophils # 20.1 H (1.3-7.7) k/uL Lymphocytes # 0.8 L (1.0-4.8) k/uL Chloride 109 H (98-107) mmol/L Carbon Dioxide 21 L (22-30) mmol/L BUN 22 H (9-20) mg/dL Creatinine 0.54 L (0.66-1.25) mg/dL Glucose 121 H (74-99) mg/dL Phosphorus (2.5-4.5) mg/dL Alkaline Phosphatase (38-126) U/L Creatine Kinase (55-170) U/L Troponin I 0.086 H* (0.000-0.034) ng/mL Urine Protein (Negative) Ur Leukocyte Esterase (Negative) Hyaline Casts (0-2) /lpf Urine Mucus (None) /hpf 03/24/21 Range/Units 07:24 WBC (3.8-10.6) k/uL Hgb (13.0-17.5) gm/dL Hct (39.0-53.0) % RDW (11.5-15.5) % Neutrophils # (1.3-7.7) k/uL Lymphocytes # (1.0-4.8) k/uL Chloride (98-107) mmol/L Carbon Dioxide (22-30) mmol/L BUN (9-20) mg/dL Creatinine (0.66-1.25) mg/dL Glucose (74-99) mg/dL Phosphorus (2.5-4.5) mg/dL Alkaline Phosphatase (38-126) U/L Creatine Kinase (55-170) U/L Troponin I 0.101 H* (0.000-0.034) ng/mL Urine Protein (Negative) Ur Leukocyte Esterase (Negative) Hyaline Casts (0-2) /lpf Urine Mucus (None) /hpf Assessment and Plan (1) Pressure injury of sacral region, stage 2 Current Visit: Yes Status: Acute Code(s): L89.152 - PRESSURE ULCER OF SACRAL REGION, STAGE 2 SNOMED Code(s): 951573769 (2) Pressure ulcer of right heel, stage 2 Current Visit: No Status: Acute Code(s): L89.612 - PRESSURE ULCER OF RIGHT HEEL, STAGE 2 SNOMED Code(s): 213311103
--- NOTE | 2021-03-24 14:18 | P.CNNES ---
History of Present Illness Consult date: 03/24/21 Requesting physician: Royal Kumar Reason for Consult: altered mental status History of Present Illness: This is a 60-year-old gentleman with medical history of localized related epilepsy, advanced multiple sclerosis who is bedridden, dementia (reported as "severe"), nonverbal, decubitus ulcer, dysphagia status post PEG tube, trigeminal neuralgia, hypertension, urinary incontinence who presented emergency department on 03/23/2021 for the possible aspiration pneumonia. The complaint was shortness of breath and cough per ED team. The patient is known to our neurology team and was seen multiple times. Neurologist consulted for altered mental status per the patient's nurse at patient's mentation has been stable and that he is known to the nursing staff and did not feel he is any different that today compared to previously. Patient home medication some consist of the Tegretol 200 mg 1 tablet twice a day, Vimpat 150 gram one tablet twice a day, baclofen 10 mg 1 tablet 3 times a day, aspirin 81 mg daily, lactulose, metoprolol, amantadine 100 mg daily. Some other workup in the hospital consisted of: Initial vital signs is blood pressure of 104/70, heart rate of 120, temperature of 99F oral, respiratory of 22 and pulse ox of 99% on 15 L of nonrebreather. Patient had a T-max of 100F. Patient initial white blood cell is 11.6 and it's predominantly neutrophilic. His repeated one blood cell today was 21.9 and again it's predominantly neutrophilic. Creatinine is 0.63, sodium is 139, glucose is 114, calcium is 9.7, AST 20 for an ALT of 17 and the creatinine kinase is 45 which is unremarkable. Troponin is 0.086 and the repeat his 0.101 which is slightly elevated. Eng virus PCR was not detected. Of note the patient was seen by our neurology team multiple times and the last time he was seen was on 08/12/2020 and that we recommended for the seizure medication of Tegretol 200 mg every 12 hours, Vimpat 150 mg 1 tablet twice a day and Keppra thousand milligram twice a day. Please refer to our notes for further details of workup as well as history. Review of Systems Review of system is limited but the per positive and negative as per HPI. Past Medical History Past Medical History: Deep Vein Thrombosis (DVT), GERD/Reflux, Hypertension, Musculoskeletal Disorder, Neurologic Disorder, Pneumonia, Seizure Disorder, Skin Disorder Additional Past Medical History / Comment(s): Pt diagnosed with MS at the age of 39 yrs, eizure/pneumonia/UTI with sepsis/respirtory failure/vented, cognitive impairment, sister states when he is feeling well he could speak a few words/nod head appropriately/give thumbs up/roll eyes but when ill is nonverbal, pt has dysphagia/NPO with peg tube, contractures, last seizure 07/2020, trigeminal neuralgia, dysarthria/anarthria/neurogenic bladder with IDC-UTIs/sepsis, multip le pneumonias, recent seizure-last one 07/03/20, incontinent of stool, pt has had decubitus ulcer coccyx-sister unsure of skin condition at this time, past anemia r/t heparin/epistaxiis which involved nasal packing/transfusions, DVT bilateral arms, hypoxia, oxygen at 2L/NC, L femoral head fracture History of Any Multi-Drug Resistant Organisms: ESBL, MRSA Date of last positivie culture/infection: 03/09/21-MRSA; 11/23/19 ESBL-E.coli MDRO Source:: Abdomen-Peg site MRSA; Urine -ESBL Past Surgical History: Tonsillectomy Additional Past Surgical History / Comment(s): Gastrostomy, peg tube, I&D coccyx decubitius, bronchoscopy, bilateral lasik eye surgery. Past Anesthesia/Blood Transfusion Reactions: No Reported Reaction Additional Past Anesthesia/Blood Transfusion Reaction / Comment(s): Pt has received blood in past without reaction. Past Psychological History: Depression Additional Psychological History / Comment(s): Pt resides at [facility]. He normally is in bed/amita lift to wheelchair. Has peg/IDC Smoking Status: Never smoker Past Alcohol Use History: None Reported Past Drug Use History: None Reported - Past Family History Father Family Medical History: Myocardial Infarction ([place]) Mother Family Medical History: Hypertension, Myocardial Infarction ([place]) Additional Family Medical History / Comment(s): Mother of a [place] at the age of 73 yrs. Medications and Allergies Home Medications Medication Instructions Recorded Confirmed Type Cholecalciferol [Vitamin D3 (25 1,000 unit PEG/G-TUBE DAILY@0900 12/28/1703/02 History Mcg = 1000 Iu)] Acetaminophen Oral Susp [Tylenol] 320 mg PEG/G-TUBE Q6H PRN 01/26/19 03/23/21 History Oxybutynin Chloride [Ditropan Oral 5 mg PEG/G-TUBE TID@0600,1400,2200 09/08/19 03/23/21 History Soln] Ipratropium-Albuterol Nebulize 3 ml INHALATION RT-Q6H PRN 12/16/19 03/23/21 History [Duoneb 0.5 mg-3 mg/3 ml Soln] Baclofen [Lioresal] 10 mg PEG/G-TUBE TID@0600,1400,2200 07/16/20 03/23/21 History carBAMazepine [TEGretol] 200 mg PEG/G-TUBE BID@0900,209907/30/20 03/23/21 History Scopolamine [Scopolamine 1 MG/72 1 patch TRANSDERM Q72H 09/07/20 03/23/21 Hi story HR patch] Aspirin 81 mg PEG/G-TUBE DAILY@0900 11/27/20 03/23/21 History Cranberry Fruit Extract [Cranberry] 500 mg PEG/G-TUBE DAILY@0900 11/27/20 03/23/21 History amantadine HCL [Amantadine] 100 mg PEG/G-TUBE DAILY@0900 11/27/20 03/23/21 History Docusate Oral Soln [Colace Oral 100 mg PEG/G-TUBE BID@0900,209903/07/21 03/23/21 History Soln] Famotidine [Pepcid] 20 mg PEG/G-TUBE HS 03/07/21 03/23/21 History Lactulose 20 gm PEG/G-TUBE BID@0900,2100 03/07/21 03/23/21 History Magnesium Hydroxide [Milk of 7,200 mg PEG/G-TUBE Q72H PRN 03/07/21 03/23/21 History Magnesia Concentrate] Metoprolol Tartrate [Lopressor] 75 mg PEG/G-TUBE BID@0900,2100 03/07/21 03/23/21 History Lacosamide [Vimpat] 150 mg PEG/G-TUBE BID@0900,2100 #6 03/15/21 03/23/21 Rx tab 0.9 % Sodium Chloride [Sodium 10 ml IV Q8H 03/23/21 03/23/21 History Chloride Flush] guaiFENesin-DM 100-10MG/5ML 10 ml PEG/G-TUBE Q6H PRN 03/23/21 03/23/21 History [Robitussin DM] Allergies Allergy/AdvReac Type Severity Reaction Status Date / Time meropenem [From Merrem] Allergy Rash/Hives Verified 03/23/21 22:20 Physical Examination - Vital Signs Vital Signs: Vital Signs Temp Pulse Pulse Resp BP BP Pulse Ox 03/24/21 12:35 98.5 F 60 24 100/56 94 L 03/24/21 11:48 108 H 03/24/21 11:35 100 03/24/21 08:28 100.0 F H 125 H 21 111/64 96 03/24/21 07:46 106 H 03/24/21 07:38 104 H 03/24/21 04:00 99.5 F 108 H 22 124/83 96 03/24/21 02:33 98.4 F 109 H 21 127/84 97 03/24/21 01:22 99.1 F 89 18 129/87 97 03/24/21 01:01 90 18 121/85 99 03/24/21 00:10 92 19 111/79 99 03/23/21 23:31 110 H 18 126/92 97 03/23/21 23:25 112 H 03/23/21 23:17 112 H 03/23/21 23:12 99 19 127/83 99 03/23/21 22:35 22 03/23/21 22:02 99.0 F 120 H 22 104/70 99 Intake and Output 03/23/21 03/24/21 03/24/21 22:59 06:59 14:59 Intake Total 900 Output Total 500 225 Balance -500 675 Intake: Intake, IV Titration 100 Amount metroNIDAZOLE-NS PMX 500 100 mg In Saline 1 100ml.bag @ 100 mls/hr IVPB Q8H COUNT INCLUDES THE [facility] Rx#:[id number] Oral 800 Output: Urine 500 225 Other: Voiding Method Indwelling Catheter Weight 75 kg 75 kg 75 kg GENERAL: The patient is lying in bed and is not in acute distress. CHEST: The heart rate is regular rate rhythm. No murmurs to auscultation. LUNG: He was coughing during examination. Not labored breathing. Not in labored breathing. ABDOMEN/GI: Bowel sounds present in all 4 quadrants. No tenderness to palpation throughout. NEUROLOGICAL: Higher mental function: The patient is and is nonverbal (baseline). He followed one command and that is showed thumbs up. . Cranial nerves: The pupils are round, equal and reactive. Visual prater: could not assess because of his condition. He was tracking me throughout. No facial weakness. Moving his head side to side tracking me throughout the room. Rest of the cranial nerves could not be assessed because of his condition.. Motor: Is bed bound. The strength is spastic in all 4 extremities. Slightly less over the left upper extremity (decrased tone over the left wrist). Cerebellum: Could not be assessed. Sensation: Could not be assessed. Reflexes (right/left): 3+ Plantars are upgoing bilaterally. Results Urine analysis does not seem remarkable for urinary tract infection. Coagulation study: PT of 11.1, INR 1.0 and PTT of 23.8. - Laboratory Findings CBC and BMP: 03/24/21 07:24 03/24/21 07:24 Abnormal Lab Findings: Abnormal Labs 03/23/21 03/23/21 03/23/21 22:30 22:30 22:30 WBC 11.6 H Hgb Hct RDW 16.1 H Neutrophils # 9.6 H Lymphocytes # Chloride Carbon Dioxide BUN 25 H Creatinine 0.63 L Glucose 114 H Phosphorus 4.8 H Alkaline Phosphatase 148 H Creatine Kinase 45 L Troponin I Urine Protein 2+ H Ur Leukocyte Esterase Trace H Hyaline Casts 5 H Urine Mucus Rare H 03/23/21 03/24/21 03/24/21 22:30 07:24 07:24 WBC 21.9 H Hgb 12.1 L Hct 37.1 L RDW 16.1 H Neutrophils # 20.1 H Lymphocytes # 0.8 L Chloride 109 H Carbon Dioxide 21 L BUN 22 H Creatinine 0.54 L Glucose 121 H Phosphorus Alkaline Phosphatase Creatine Kinase Troponin I 0.086 H* Urine Protein Ur Leukocyte Esterase Hyaline Casts Urine Mucus 03/24/21 07:24 WBC Hgb Hct RDW Neutrophils # Lymphocytes # Chloride Carbon Dioxide BUN Creatinine Glucose Phosphorus Alkaline Phosphatase Creatine Kinase Troponin I 0.101 H* Urine Protein Ur Leukocyte Esterase Hyaline Casts Urine Mucus Assessment and Plan Assessment: Altered mental status due to septic encephalopathy (likely aspiration pneumonia--mentation is baseline Severe multiple sclerosis who is bedridden History of the localized related epilepsy Nonverbal baseline severe dementia Dysphagia status post PEG Reported trigeminal neuralgia Hypertension Urinary incontinence Plan: She was restarted on his home dose Tegretol 200 mg 1 tablet twice a day, Vimpat 150 mg 1 tablet twice a day. I started him on Keppra thousand milligrams 1 tablet twice a day as be recommended on the last note of 08/12/2020. Every 4 hours neuro checks We'll defer the rest of the medical management to the pulmonary and the primary team. Patient condition is very guarded. He has multiple comorbidities and has has multiple recurrent hospital visits and feel his quality of life is poor. The plan is discussed with the patient's nurse. Thank you for the consultation. Jamison Hawkins MD Neuro-Hospitalist Time with Patient: Greater than 30
--- NOTE | 2021-03-24 14:21 | P.CRDCN ---
History of Present Illness History of present illness: HISTORY OF PRESENTING ILLNESS This is a pleasant 60-year-old male past medical history significant for multiple sclerosis. We have been asked to see in consultation for elevated troponin. The patient is nonverbal and does not communicate. Information is obtained from the medical record and the nursing staff. He was brought to the hospital secondary to aspiration of his emesis at [facility]. He has been diagnosed with aspiration pneumonia and is currently on IV antibiotics. EKG reveals sinus tachycardia with no acute ST or T wave abnormalities noted. Chest x-ray reveals minimal subsegmental atelectasis. No change compared to prior. Laboratory data reviewed, WBC 21.9, hemoglobin 12.1, platelets 347, sodium 139, potassium 4.1, BUN 22, serum creatinine 0.54, troponin 0.08--> 0.1. Current daily cardiac medications include Lopressor 75 mg twice a day and aspirin 81 mg daily. Most recent echocardiogram 665%, trace mitral regurgitation, mild tricuspid regurgitation. REVIEW OF SYSTEMS At the time of my exam: Unable to obtain accurate review of systems secondary to patient being nonverbal and noncommunicative toward. PHYSICAL EXAMINATION Blood pressure 100/56 heart rate 108 afebrile and maintaining oxygen saturation on room air. CONSTITUTIONAL: No apparent distress. HEENT: Head is normocephalic. Pupils are equal, round. Sclerae anicteric. Mucous membranes of the mouth are moist. No JVD. No carotid bruit. CHEST EXAMINATION: Lungs ronchi throughout . No chest wall tenderness is noted on palpation or with deep breathing. HEART EXAMINATION: Regular tachycardic rate and rhythm. S1, S2 heard. No murmurs, gallops or rub. ABDOMEN: Soft, nontender. Positive bowel sounds. EXTREMITIES: 2+ peripheral pulses, no lower extremity edema and no calf tenderness. Contracted lower extremities. NEURO: Alert, non-verbal ASSESSMENT Elevated troponin, not indicative of acute coronary showed him, most likely related to type II ID with supply, demand mismatch Aspiration pneumonia Fever Multiple sclerosis Sinus tachycardia Nonverbal PLAN From cardiology perspective elevated troponin not indicative of acute coronary syndrome. No further workup at this time from a cardiology perspective. Ongoing medical management of aspiration pneumonia. We will sign off at this time, please reach out with any further questions or concerns. Nurse Practitioner note has been reviewed, I agree with a documented findings and plan of care. Patient was seen and examined. Past Medical History Past Medical History: Deep Vein Thrombosis (DVT), GERD/Reflux, Hypertension, Musculoskeletal Disorder, Neurologic Disorder, Pneumonia, Seizure Disorder, Skin Disorder Additional Past Medical History / Comment(s): Pt diagnosed with MS at the age of 39 yrs, eizure/pneumonia/UTI with sepsis/respirtory failure/vented, cognitive impairment, sister states when he is feeling well he could speak a few words/nod head appropriately/give thumbs up/roll eyes but when ill is nonverbal, pt has dysphagia/NPO with peg tube, contractures, last seizure 07/2020, trigeminal neuralgia, dysarthria/anarthria/neurogenic bladder with IDC-UTIs/sepsis, multiple pneumonias, recent seizure-last one 07/03/20, incontinent of stool, pt has had decubitus ulcer coccyx-sister unsure of skin condition at this time, past anemia r/t heparin/epistaxiis which involved nasal packing/transfusions, DVT bilateral arms, hypoxia, oxygen at 2L/NC, L femoral head fracture History of Any Multi-Drug Resistant Organisms: ESBL, MRSA Date of last positivie culture/infection: 03/09/21-MRSA; 11/23/19 ESBL-E.coli MDRO Source:: Abdomen-Peg site MRSA; Urine -ESBL Past Surgical History: Tonsillectomy Additional Past Surgical History / Comment(s): Gastrostomy, peg tube, I&D coccyx decubitius, bronchoscopy, bilateral lasik eye surgery. Past Anesthesia/Blood Transfusion Reactions: No Reported Reaction Additional Past Anesthesia/Blood Transfusion Reaction / Comment(s): Pt has received blood in past without reaction. Past Psychological History: Depression Additional Psychological History / Comment(s): Pt resides at [facility]. He normally is in bed/amita lift to wheelchair. Has peg/IDC Smoking Status: Never smoker Past Alcohol Use History: None Reported Past Drug Use History: None Reported - Past Family History Father Family Medical History: Myocardial Infarction ([place]) Mother Family Medical History: Hypertension, Myocardial Infarction ([place]) Additional Family Medical History / Comment(s): Mother of a [place] at the age of 73 yrs. Medications and Allergies Home Medications Medication Instructions Recorded Confirmed Type Cholecalciferol [Vitamin D3 (25 1,000 unit PEG/G-TUBE DAILY@0900 12/28/17 03/23/21 History Mcg = 1000 Iu)] Acetaminophen Oral Susp [Tylenol] 320 mg PEG/G-TUBE Q6H PRN 01/26/19 03/23/21 History Oxybutynin Chloride [Ditropan Oral 5 mg PEG/G-TUBE TID@0600,1400,2200 09/08/19 03/23/21 History Soln] Ipratropium-Albuterol Nebulize 3 ml INHALATION RT-Q6H PRN 12/16/19 03/23/21 History [Duoneb 0.5 mg-3 mg/3 ml Soln] Baclofen [Lioresal] 10 mg PEG/G-TUBE TID@0600,1400,2200 07/16/20 03/23/21 History carBAMazepine [TEGretol] 200 mg PEG/G-TUBE BID@0900,2100 07/30/20 03/23/21 History Scopolamine [Scopolamine 1 MG/72 1 patch TRANSDERM Q72H 09/07/20 03/23/21 History HR patch] Aspirin 81 mg PEG/G-TUBE DAILY@0900 11/27/20 03/23/21 History Cranberry Fruit Extract [Cranberry] 500 mg PEG/G-TUBE DAILY@0900 11/27/20 03/23/21 History amantadine HCL [Amantadine] 100 mg PEG/G-TUBE DAILY@0900 11/27/20 03/23/21 History Docusate Oral Soln [Colace Oral 100 mg PEG/G-TUBE BID@0900,2100 03/07/21 03/23/21 History Soln] Famotidine [Pepcid] 20 mg PEG/G-TUBE HS 03/07/21 03/23/21 History Lactulose 20 gm PEG/G-TUBE BID@0900,2100 03/07/21 03/23/21 History Magnesium Hydroxide [Milk of 7,200 mg PEG/G-TUBE Q72H PRN 03/07/21 03/23/21 History Magnesia Concentrate] Metoprolol Tartrate [Lopressor] 75 mg PEG/G-TUBE BID@0900,2100 03/07/21 03/23/21 History Lacosamide [Vimpat] 150 mg PEG/G-TUBE BID@0900,2100 #6 03/15/21 03/23/21 Rx tab 0.9 % Sodium Chloride [Sodium 10 ml IV Q8H 03/23/21 03/23/21 History Chloride Flush] guaiFENesin-DM 100-10MG/5ML 10 ml PEG/G-TUBE Q6H PRN 03/23/21 03/23/21 History [Robitussin DM] Allergies Allergy/AdvReac Type Severity Reaction Status Date / Time meropenem [From Merrem] Allergy Rash/Hives Verified 03/23/21 22:20 Physical Exam Vitals: Vital Signs Temp Pulse Pulse Resp BP BP Pulse Ox 03/24/21 12:35 98.5 F 60 24 100/56 94 L 03/24/21 11:48 108 H 03/24/21 11:35 100 03/24/21 08:28 100.0 F H 125 H 21 111/64 96 03/24/21 07:46 106 H 03/24/21 07:38 104 H 03/24/21 04:00 99.5 F 108 H 22 124/83 96 03/24/21 02:33 98.4 F 109 H 21 127/84 97 03/24/21 01:22 99.1 F 89 18 129/87 97 03/24/21 01:01 90 18 121/85 99 03/24/21 00:10 92 19 111/79 99 03/23/21 23:31 110 H 18 126/92 97 03/23/21 23:25 112 H 03/23/21 23:17 112 H 03/23/21 23:12 99 19 127/83 99 03/23/21 22:35 22 03/23/21 22:02 99.0 F 120 H 22 104/70 99 Intake and Output 03/23/21 03/24/21 03/24/21 22:59 06:59 14:59 Intake Total 900 Output Total 500 225 Balance -500 675 Intake: Intake, IV Titration 100 Amount metroNIDAZOLE-NS PMX 500 100 mg In Saline 1 100ml.bag @ 100 mls/hr IVPB Q8H [facility] Rx#:[id number] Oral 800 Output: Urine 500 225 Other: Voiding Method Indwelling Catheter # Bowel Movements 1 Weight 75 kg 75 kg 75 kg Results 03/24/21 07:24 03/24/21 07:24 Cardiac Enzymes 03/23/21 03/23/2103/24/21 Range/Units 22:30 22:30 07:24 AST 24 (17-59) U/L Troponin I 0.086 H* 0.101 H* (0.000-0.034) ng/mL Coagulation 03/23/21 Range/Units 23:02 PT 11.1 (9.0-12.0) sec APTT 23.8 (22.0-30.0) sec CBC 03/23/21 03/24/21 Range/Units 22:30 07:24 WBC 11.6 H 21.9 H (3.8-10.6) k/uL RBC 5.10 4.50 (4.30-5.90) m/uL Hgb 13.5 12.1 L (13.0-17.5) gm/dL Hct 41.1 37.1 L (39.0-53.0) % Plt Count 393 347 (150-450) k/uL Comprehensive Metabolic Panel 03/23/21 03/24/21 Range/Units 22:30 07:24 Sodium 139 139 (137-145) mmol/L Potassium 4.2 4.1 (3.5-5.1) mmol/L Chloride 104 109 H (98-107) mmol/L Carbon Dioxide 23 21 L (22-30) mmol/L BUN 25 H 22 H (9-20) mg/dL Creatinine 0.63 L 0.54 L (0.66-1.25) mg/dL Glucose 114 H 121 H (74-99) mg/dL Calcium 9.7 8.7 (8.4-10.2) mg/dL AST 24 (17-59) U/L ALT 17 (4-49) U/L Alkaline Phosphatase 148 H (38-126) U/L Total Protein 8.1 (6.3-8.2) g/dL Albumin 4.3 (3.5-5.0) g/dL Current Medications Generic Name Dose Route Start Last Admin Trade Name Freq PRN Reason Stop Dose Admin Acetaminophen 320 mg 03/24/21 08:45 03/24/21 10:15 Acetaminophen Oral Susp (Peds) 3,840 Mg/120 Ml Bottle PEG/G-TUBE 320 mg Q6H PRN Administration Fever and/ or Pain Albuterol/Ipratropium 3 ml 03/24/21 00:16 06/24/21 11:34 Ipratropium-Albuterol 3 Ml Neb INHALATION 3 ml RT-Q4H PRN Administration shortness of breath Amantadine HCl 100 mg 03/24/21 11:00 03/24/21 11:06 Amantadine Hcl 100 Mg/10 Ml Cup PO 100 mg DAILY@0900 [facility] Administration Aspirin 81 mg 03/24/21 09:00 03/24/21 10:13 Aspirin 81 Mg PEG/G-TUBE 81 mg DAILY@0900 [facility] Administration Azithromycin 500 mg 03/25/21 10:00 Azithromycin 500 Mg Tab PO DAILY@1000 [facility] Baclofen 10 mg 03/24/21 14:00 Baclofen 10 Mg Tab PEG/G-TUBE TID@0600,1400,2200 [facility] Carbamazepine 200 mg 03/24/21 09:00 03/24/21 10:14 Carbamazepine 200 Mg Tab PEG/G-TUBE 200 mg BID@0900,2100 [facility] Administration Cholecalciferol 25 mcg 03/24/21 09:00 03/24/21 10:14 Cholecalciferol 25 Mcg (1000 Iu) Tablet PEG/G-TUBE 25 mcg DAILY@0900 [facility] Administration Docusate Sodium 100 mg 03/24/21 09:00 03/24/21 10:14 Docusate Oral Soln 100 Mg/10 Ml Cup PEG/G-TUBE 100 mg BID@0900,2100 [facility] Administration Famotidine 20 mg 03/24/21 21:00 Famotidine 20 Mg Tab PEG/G-TUBE HS [facility] Guaifenesin/Dextromethorphan 10 ml 03/24/21 08:45 03/24/21 10:31 Guaifenesin-Dm 100-10mg/5ml 10 Ml Cup PEG/G-TUBE 10 ml Q6H PRN Administration Cough Heparin Sodium (Porcine) 5,000 unit 03/24/21 16:00 Heparin Sodium,Porcine/Pf 5,000 Unit/0.5 Ml Syringe SQ Q8HR [facility] Sodium Chloride 1,000 mls @ 100 mls/hr 03/24/21 00:30 03/24/21 06:44 Saline 0.9% IV 100 mls/hr .Q10H [facility] Administration Ceftriaxone Sodium 2 gm/ 50 mls @ 100 mls/hr 03/25/21 01:00 Sodium Chloride IVPB Q24H [facility] Metronidazole 500 mg/ IV 100 mls @ 100 mls/hr 03/24/21 02:00 03/24/21 08:38 Solution IVPB 100 mls/hr Q8H [facility] Administration Levetiracetam 1,000 mg/ IV 100 mls @ 400 mls/hr 03/24/21 13:15 Solution IVPB Q12HR [facility] Lacosamide 150 mg 03/24/21 09:00 03/24/21 10:14 Lacosamide 150 Mg Tablet PEG/G-TUBE 150 mg BID@0900,2100 [facility] Administration Lactulose 20 gm 03/24/21 09:00 03/24/21 10:14 Lactulose 20 Gm/30 Ml Cup PEG/G-TUBE 20 gm BID@899,2099 [facility] Administration Magnesium Hydroxide 2,400 mg 03/24/21 08:45 Magnesium Hydroxide 2,400 Mg/10 Ml Cup PEG/G-TUBE Q72H PRN Constipation Metoprolol Tartrate 75 mg 03/24/21 09:00 03/24/21 10:13 Metoprolol Tartrate 25 Mg Tab PEG/G-TUBE 75 mg BID@0900,2099 [facility] Administration Miscellaneous Information 1 each 03/24/21 00:10 Pneumonia Protocol Utilized 1 Each Misc PO ONCE PRN Per Protocol Non-Formulary Medication 500 mg 03/24/21 09:00 03/24/21 10:10 Cranberry Fruit Extract [Cranberry] PEG/G-TUBE Not Given DAILY@0900 [facility] Oxybutynin Chloride 5 mg 03/24/21 14:00 Oxybutynin Chloride 5 Mg Tab PEG/G-TUBE TID@0600,1400,2200 [facility] Scopolamine 1 patch 03/24/21 08:45 03/24/21 10:14 Scopolamine 1.5mg/72hr Patch TRANSDERM 1 patch Q72H [facility] Administration Sodium Chloride 10 ml 03/24/21 16:00 Sodium Chloride 0.9% Flush 10 Ml Syringe IV Q8HR [facility] Intake and Output 03/23/21 03/24/21 03/24/21 22:59 06:59 14:59 Intake Total 900 Output Total 500 225 Balance -500 675 Intake: Intake, IV Titration 100 Amount metroNIDAZOLE-NS PMX 500 100 mg In Saline 1 100ml.bag @ 100 mls/hr IVPB Q8H [facility] Rx#:[id number] Oral 800 Output: Urine 500 225 Other: Voiding Method Indwelling Catheter # Bowel Movements 1 Weight 75 kg 75 kg 75 kg Patient Weight 03/25/21 06:59 Weight 75 kg 03/24/21 07:24 03/24/21 07:24
--- NOTE | 2021-03-24 14:26 | P.HPIM ---
History of Present Illness 60-year-old male had multiple hospitalizations because of aspiration. Patient does have a PEG tube in place. Patient came in septic again did aspirate again was [facility] at the [facility]. Patient has advanced multiple sclerosis with contractures usually nonverbal. Patient is cachectic debilitated remains full code because of the insistence from sister. Patient had history of Pseudomonas ESBL and enterococcal infections along with MRSA in the past. Patient is presently being treated for aspiration pneumonia again with multiple antibiotics including ceftriaxone, metronidazole and azithromycin multiple consultants inclu matty infectious disease is following the patient patient is severely septic patient also had a mildly elevated troponin because of his cardiology is following the patient although troponin elevation is probably secondary to sepsis. Patient has a stage II decubitus ulcer in the sacral area as well as heel for which a wound care is following the patient. Review of systems: Unable to obtain due to his clinical condition PHYSICAL EXAMINATION: GENERAL: Non-verbal thin built cachectic with contractors PEG tube site looks okay patient is bit diaphoretic HEENT: Pupils are round and equally reacting to light. EOMI. No scleral icterus. No conjunctival pallor. Normocephalic, atraumatic. No pharyngeal erythema. No thyromegaly. CARDIOVASCULAR: S1 and S2 present. No murmurs, rubs, or gallops. PULMONARY: Chest is clear to auscultation, no wheezing or crackles. ABDOMEN: Soft, nontender, PEG tube in place. MUSCULOSKELETAL: No joint swelling or deformity. EXTREMITIES: No cyanosis, clubbing, or pedal edema. NEUROLOGICAL: Gross neurological examination did not reveal any focal deficits. Patient does have contractures and chronic weakness thin built significant muscle atrophy in all 4 limbs as well as chest wall as well as abdominal wall muscle atrophy SKIN: Stage II decubitus ulcers as mentioned above Assessment and plan: -Severe sepsis: Secondary to aspiration pneumonia there may be a competent of chemical pneumonitis. Patient will be continued on above-mentioned antibiotics his overall prognosis is extremely poor. Patient remains a full code at this time. Rest of the workup for sepsis is so far negative -Troponin elevation secondary to severe sepsis -Moderate protein calorie malnutrition patient is on PEG tube feedings to resume -Severe multiple sclerosis with contractures. -Neurogenic bladder with multiple urinary tract infections in the past -Decubitus ulcer for which patient will undergo local wound care -Gastroesophageal reflux disease -Seizure disorder -Hypertension -History of DVT in the past -Chronic medical debility -DVT prophylaxis: Subcutaneous heparin Past Medical History Past Medical History: Deep Vein Thrombosis (DVT), GERD/Reflux, Hypertension, Musculoskeletal Disorder, Neurologic Disorder, Pneumonia, Seizure Disorder, Skin Disorder Additional Past Medical History / Comment(s): Pt diagnosed with MS at the age of 39 yrs, eizure/pneumonia/UTI with sepsis/respirtory failure/vented, cognitive impairment, sister states when he is feeling well he could speak a few words/nod head appropriately/give thumbs up/roll eyes but when ill is nonverbal, pt has dysphagia/NPO with peg tube, contractures, last seizure 07/2020, trigeminal neuralgia, dysarthria/anarthria/neurogenic bladder with IDC-UTIs/sepsis, multiple pneumonias, recent seizure-last one 07/03/20, incontinent of stool, pt has had decubitus ulcer coccyx-sister unsure of skin condition at this time, past anemia r/t heparin/epistaxiis which involved nasal packing/transfusions, DVT bilateral arms, hypoxia, oxygen at 2L/NC, L femoral head fracture History of Any Multi-Drug Resistant Organisms: ESBL, MRSA Date of last positivie culture/infection: 03/09/21-MRSA; 11/23/19 ESBL-E.coli MDRO Source:: Abdomen-Peg site MRSA; Urine -ESBL Past Surgical History: Tonsillectomy Additional Past Surgical History / Comment(s): Gastrostomy, peg tube, I&D coccyx decubitius, bronchoscopy, bilateral lasik eye surgery. Past Anesthesia/Blood Transfusion Reactions: No Reported Reaction Additional Past Anesthesia/Blood Transfusion Reaction / Comment(s): Pt has received blood in past without reaction. Past Psychological History: Depression Additional Psychological History / Comment(s): Pt resides at [facility]. He normally is in bed/amita lift to wheelchair. Has peg/IDC Smoking Status: Never smoker Past Alcohol Use History: None Reported Past Drug Use History: None Reported - Past Family History Father Family Medical History: Myocardial Infarction ([place]) Mother Family Medical History: Hypertension, Myocardial Infarction ([place]) Additional Family Medical History / Comment(s): Mother of a [place] at the age of 73 yrs. Medications and Allergies Home Medications Medication Instructions Recorded Confirmed Type Cholecalciferol [Vitamin D3 (25 1,000 unit PEG/G-TUBE DAILY@0900 12/28/17 03/23/21 History Mcg = 1000 Iu)] Acetaminophen Oral Susp [Tylenol] 320 mg PEG/G-TUBE Q6H PRN 01/26/19 03/23/21 History Oxybutynin Chloride [Ditropan Oral 5 mg PEG/G-TUBE TID@0600,1400,2200 09/08/19 03/23/21 History Soln] Ipratropium-Albuterol Nebulize 3 ml INHALATION RT-Q6H PRN 12/16/19 03/23/21 History [Duoneb 0.5 mg-3 mg/3 ml Soln] Baclofen [Lioresal] 10 mg PEG/G-TUBE TID@0600,1400,2200 07/16/20 03/23/21 History carBAMazepine [TEGretol] 200 mg PEG/G-TUBE BID@0900,2100 07/30/20 03/23/21 History Scopolamine [Scopolamine 1 MG/72 1 patch TRANSDERM Q72H 09/07/20 03/23/21 History HR patch] Aspirin 81 mg PEG/G-TUBE DAILY@0900 11/27/20 03/23/21 History Cranberry Fruit Extract [Cranberry] 500 mg PEG/G-TUBE DAILY@0900 11/27/20 03/23/21 History amantadine HCL [Amantadine] 100 mg PEG/G-TUBE DAILY@0900 11/27/20 03/23/21 History Docusate Oral Soln [Colace Oral 100 mg PEG/G-TUBE BID@0900,209903/07/21 03/23/21 History Soln] Famotidine [Pepcid] 20 mg PEG/G-TUBE HS 03/07/21 03/23/21 History Lactulose 20 gm PEG/G-TUBE BID@0900,209903/07/21 03/23/21 History Magnesium Hydroxide [Milk of 7,200 mg PEG/G-TUBE Q72H PRN 03/07/21 03/23/21 History Magnesia Concentrate] Metoprolol Tartrate [Lopressor] 75 mg PEG/G-TUBE BID@0900,2100 03/07/21 03/23/21 History Lacosamide [Vimpat] 150 mg PEG/G-TUBE BID@0900,2100 #6 03/15/21 03/23/21 Rx tab 0.9 % Sodium Chloride [Sodium 10 ml IV Q8H 03/23/21 03/23/21 History Chloride Flush] guaiFENesin-DM 100-10MG/5ML 10 ml PEG/G-TUBE Q6H PRN 03/23/21 03/23/21 History [Robitussin DM] Allergies Allergy/AdvReac Type Severity Reaction Status Date / Time meropenem [From Merrem] Allergy Rash/Hives Verified 03/23/21 22:20 Physical Exam Vitals: Vital Signs Temp Pulse Pulse Resp BP BP Pulse Ox 03/24/21 12:35 98.5 F 60 24 100/56 94 L 03/24/21 11:48 108 H 03/24/21 11:35 100 03/24/21 08:28 100.0 F H 125 H 21 111/64 96 03/24/21 07:46 106 H 03/24/21 07:38 104 H 03/24/21 04:00 99.5 F 108 H 22 124/83 96 03/24/21 02:33 98.4 F 109 H 21 127/84 97 03/24/21 01:22 99.1 F 89 18 129/87 97 03/24/21 01:01 90 18 121/85 99 03/24/21 00:10 92 19 111/79 99 03/23/21 23:31 110 H 18 126/92 97 03/23/21 23:25 112 H 03/23/21 23:17 112 H 03/23/21 23:12 99 19 127/83 99 03/23/21 22:35 22 03/23/21 22:02 99.0 F 120 H 22 104/70 99 Intake and Output 03/23/21 03/24/21 03/24/21 22:59 06:59 14:59 Intake Total 900 Output Total 500 225 Balance -500 675 Intake: Intake, IV Titration 100 Amount metroNIDAZOLE-NS PMX 500 100 mg In Saline 1 100ml.bag @ 100 mls/hr IVPB Q8H [facility] Rx#:[id number] Oral 800 Output: Urine 500 225 Other: Voiding Method Indwelling Catheter # Bowel Movements 1 Weight 75 kg 75 kg 75 kg Results CBC & Chem 7: 03/24/21 07:24 03/24/21 07:24 Labs: Abnormal Lab Results - Last 24 Hours (Table) 03/23/21 03/23/21 03/23/21 Range/Units 22:30 22:30 22:30 WBC 11.6 H (3.8-10.6) k/uL Hgb (13.0-17.5) gm/dL Hct (39.0-53.0) % RDW 16.1 H (11.5-15.5) % Neutrophils # 9.6 H (1.3-7.7) k/uL Lymphocytes # (1.0-4.8) k/uL Chloride (98-107) mmol/L Carbon Dioxide (22-30) mmol/L BUN 25 H (9-20) mg/dL Creatinine 0.63 L (0.66-1.25) mg/dL Glucose 114 H (74-99) mg/dL Phosphorus 4.8 H (2.5-4.5) mg/dL Alkaline Phosphatase 148 H (38-126) U/L Creatine Kinase 45 L (55-170) U/L Troponin I (0.000-0.034) ng/mL Urine Protein 2+ H (Negative) Ur Leukocyte Esterase Trace H (Negative) Hyaline Casts 5 H (0-2) /lpf Urine Mucus Rare H (None) /hpf 03/23/21 03/24/21 03/24/21 Range/Units 22:30 07:24 07:24 WBC 21.9 H (3.8-10.6) k/uL Hgb 12.1 L (13.0-17.5) gm/dL Hct 37.1 L (39.0-53.0) % RDW 16.1 H (11.5-15.5) % Neutrophils # 20.1 H (1.3-7.7) k/uL Lymphocytes # 0.8 L (1.0-4.8) k/uL Chloride 109 H (98-107) mmol/L Carbon Dioxide 21 L (22-30) mmol/L BUN 22 H (9-20) mg/dL Creatinine 0.54 L (0.66-1.25) mg/dL Glucose 121 H (74-99) mg/dL Phosphorus (2.5-4.5) mg/dL Alkaline Phosphatase (38-126) U/L Creatine Kinase (55-170) U/L Troponin I 0.086 H* (0.000-0.034) ng/mL Urine Protein (Negative) Ur Leukocyte Esterase (Negative) Hyaline Casts (0-2) /lpf Urine Mucus (None) /hpf 03/24/ Range/Units 07:24 WBC (3.8-10.6) k/uL Hgb (13.0-17.5) gm/dL Hct (39.0-53.0) % RDW (11.5-15.5) % Neutrophils # (1.3-7.7) k/uL Lymphocytes # (1.0-4.8) k/uL Chloride (98-107) mmol/L Carbon Dioxide (22-30) mmol/L BUN (9-20) mg/dL Creatinine (0.66-1.25) mg/dL Glucose (74-99) mg/dL Phosphorus (2.5-4.5) mg/dL Alkaline Phosphatase (38-126) U/L Creatine Kinase (55-170) U/L Troponin I 0.101 H* (0.000-0.034) ng/mL Urine Protein (Negative) Ur Leukocyte Esterase (Negative) Hyaline Casts (0-2) /lpf Urine Mucus (None) /hpf Thrombosis Risk Factor Assmnt - Choose All That Apply Any of the Below Risk Factors Present?: Yes Each Factor Represents 1 point: Medical pt on bed rest Other Risk Factors: Yes Each Risk Factor Represents 2 Points: Age 61-74 years Each Risk Factor Represents 3 Points: History of DVT/PE Thrombosis Risk Factor Assessment Total Risk Factor Score: 6 Thrombosis Risk Factor Assessment Level: High Risk
[2021-03-24] MEDS: OXYBUTYNIN CHLORIDE 5 MG TAB PEG/G-TUBE SCH ×2 (14:49→20:09)
[2021-03-24] MEDS: levETIRAcetam IV 1,000 MG in SALINE 1 100ML.BAG IVPB SCH ×2 (14:49→20:09)
[2021-03-24] MEDS: BACLOFEN 10 MG TAB PEG/G-TUBE SCH ×2 (14:49→20:10)
[2021-03-24] MEDS ORDERED: HEPARIN SODIUM,PORCINE/PF 5,000 UNIT/0.5 ML SYRINGE SQ SCH (16:00)
[2021-03-24] MEDS ORDERED: SODIUM CHLORIDE 0.9% 500 ML 500 ML IV ONE (18:40)
[2021-03-24] MEDS: HEPARIN SODIUM,PORCINE/PF 5,000 UNIT/0.5 ML SYRINGE SQ SCH (20:10)
[2021-03-24] MEDS: FAMOTIDINE 20 MG TAB PEG/G-TUBE SCH (20:11)
[2021-03-24] MEDS: PIPERACILLIN-TAZOBACTAM 3.375 GM in SODIUM CHLORIDE 0.9% 100 ML IVPB SCH (23:53)
[2021-03-25 00:04] LABS: Glucose,Whole Blood 117 mg/dL (75-99)
--- NOTE | 2021-03-25 01:26 | CONS ---
CONSULTATION DATE OF SERVICE: 03/24/2021 REASON FOR CONSULTATION: Sepsis and multiple wounds. HISTORY OF PRESENT ILLNESS: The patient is a 60-year-old male with a past medical history significant for MS in this patient who did have bed-bound state, did have history of recurrent pneumonias and urinary tract infection. The patient was recently admitted to this facility. This patient did have a component of catheter associated urinary tract infection with Pseudomonas and did have abdominal PEG tube site. Culture positive for MRSA with concern for pneumonia. The patient was advised to finish treatment with a 5- day course of IV cefepime for which the patient did get a PICC line, which was subsequently supposed to be discontinued, however, has not been removed. The patient has now been brought to the [facility] ER last evening for evaluation of possible aspiration and worsening respiratory status. On presentation to the hospital, the patient did have a low-grade fever of 99. Subsequently spiked a fever of 100-100.6 degrees Fahrenheit. The patient hypoxic requiring supplemental oxygen. He did have a white count of 11.6, up to 21.9. He did have a normal BUN and creatinine. Liver enzymes are normal. Troponins are mildly elevated. Urine is negative. The chest x- ray did not show any acute infiltrate. Eng PCR was negative. The patient has been admitted to the hospital. Has been treated with Rocephin, Zithromax and Flagyl. Infectious Disease was consulted for further management of antibiotic therapy. Most of the information has been obtained from review of the chart, talking to nursing staff as the patient himself is not able to provide any history. REVIEW OF SYMPTOMS: Review of systems could not be reliably obtained in view of his mental status. PAST MEDICAL HISTORY: Significant for MS, history of recurrent aspiration pneumonia, catheter associated UTI, seizure disorder, DVT, gastroesophageal reflux disease, hypertension. PAST SURGICAL HISTORY: Tonsillectomy, gastrostomy, PEG tube placement and I and D of the sacral ulcer, bronchoscopy and bilateral eye surgery. SOCIAL HISTORY: No history of smoking, drinking or drug use. FAMILY HISTORY: Father with history of [place]. Mother history of [place]. ALLERGIES: MEROPENEM. However has tolerated Invanz without any problem. MEDICATIONS: The patient is currently on Tylenol, DuoNeb, aspirin, baclofen, Tegretol, vitamin D3, Colace, Pepcid, Robitussin, heparin, lactulose, Rocephin, Flagyl and Zithromax. PHYSICAL EXAMINATION: Blood pressure is 139/61, pulse 100, temperature 100.6. He is 93% on 2 L nasal cannula. General description is a middle-aged male lying in bed in no distress. No tachypnea or accessory muscles of respiration use. HEENT examination: Slight pallor. No scleral icterus. Oral mucous membranes dry. NECK: Trachea central. No thyromegaly. LUNGS unlabored breathing. Coarse breath sounds bilaterally. No wheeze. HEART S1, S2. Regular rate and rhythm. ABDOMEN: Soft. No tenderness. No guarding. No rigidity. EXTREMITIES: No edema of the feet. The patient did have a stage II pressure ulcer left heel area with no evidence of any cellulitis. NEUROLOGICAL: Patient is lethargic, nonverbal. Orientation could not be determined. LABS: Hemoglobin is 12.1, white count 21.9, BUN of 22, creatinine 0.54. Electrolytes normal. Liver enzymes are normal. Chest x-ray report mentioned above. DIAGNOSTIC IMPRESSION AND PLAN: Patient admitted to the hospital with sepsis in this patient who did have a fever, elevated white count, tachycardia. This patient apparently did have a congested cough and witnessed aspiration concerning for aspiration pneumonia. We will need to cover for the resistant gram-negative to be the likely pathogen. Other source of his fever could be related to the PICC line which was supposed to be discontinued after completion of antibiotic therapy. PLAN: 1. We will try to obtain sputum for Gram stain and culture. 2. Discontinue Rocephin and Zithromax and Flagyl. 3. Start the patient on Zosyn 3.75 g q.8 hours. 4. Gentle IV fluid. 5. Local wound care to the sacral and heel wounds with dry Aquacel dressing, keep the area off the pressure. 6. We will follow on clinical condition and culture to further adjust medication if needed. Thank you for this consultation. Will follow this patient along with you. MMODL / IJN: [id number] /
[2021-03-25 06:33] LABS: Glucose,Whole Blood 137 mg/dL (75-99)
[2021-03-25] MEDS: SODIUM CHLORIDE 0.9% 1,000 ML IV SCH ×2 (06:33→22:41)
[2021-03-25] MEDS: OXYBUTYNIN CHLORIDE 5 MG TAB PEG/G-TUBE SCH ×3 (06:34→21:26)
[2021-03-25] MEDS: BACLOFEN 10 MG TAB PEG/G-TUBE SCH ×3 (06:34→21:26)
--- NOTE | 2021-03-25 07:20 | XR ---
EXAMINATION TYPE: XR chest 1V portable DATE OF EXAM: 03/25/2021 COMPARISON: 03/23/2021 HISTORY: Aspiration pneumonia TECHNIQUE: Single frontal view of the chest is obtained. FINDINGS: Linear density in the right lung base most likely represents atelectasis. Prominence of the interstit ium bilaterally appears similar to the prior exam. Cardiac silhouette is not enlarged. IMPRESSION: Linear density in the right lung base most likely represents atelectasis. Prominence of the interstit ium bilaterally appears similar to the prior exam.
[2021-03-25] MEDS: IPRATROPIUM-ALBUTEROL 3 ML NEB INHALATION PRN ×3 (08:12→15:08)
[2021-03-25] MEDS: NON FORMULARY DRUG (Cranberry Fruit Extract [Cranberry] 500 MG Tablet) PEG/G-TUBE SCH (09:17)
[2021-03-25] MEDS: ASPIRIN 81 MG PEG/G-TUBE SCH (09:22)
[2021-03-25] MEDS: carBAMazepine 200 MG TAB PEG/G-TUBE SCH ×2 (09:22→21:26)
[2021-03-25] MEDS: LACTULOSE 20 GM/30 ML CUP PEG/G-TUBE SCH ×2 (09:22→21:21)
[2021-03-25] MEDS: METOPROLOL TARTRATE 25 MG TAB PEG/G-TUBE SCH ×2 (09:22→21:26)
[2021-03-25] MEDS: HEPARIN SODIUM,PORCINE/PF 5,000 UNIT/0.5 ML SYRINGE SQ SCH ×2 (09:23→21:26)
[2021-03-25] MEDS: PIPERACILLIN-TAZOBACTAM 3.375 GM in SODIUM CHLORIDE 0.9% 100 ML IVPB SCH ×3 (09:23→22:44)
[2021-03-25] MEDS: DOCUSATE ORAL SOLN 100 MG/10 ML CUP PEG/G-TUBE SCH ×2 (09:23→20:10)
[2021-03-25] MEDS: LACOSAMIDE 150 MG TABLET PEG/G-TUBE SCH ×2 (09:23→21:26)
[2021-03-25] MEDS: CHOLECALCIFEROL 25 MCG (1000 IU) TABLET PEG/G-TUBE SCH (09:23)
[2021-03-25] MEDS: ACETAMINOPHEN ORAL SUSP (PEDS) 3,840 MG/120 ML BOTTLE PEG/G-TUBE PRN (09:24)
[2021-03-25] MEDS: levETIRAcetam IV 1,000 MG in SALINE 1 100ML.BAG IVPB SCH ×2 (09:24→21:26)
[2021-03-25] MEDS ORDERED: AZITHROMYCIN 500 MG TAB PO SCH (10:00)
[2021-03-25 12:18] LABS: Glucose,Whole Blood 119 mg/dL (75-99)
--- NOTE | 2021-03-25 12:35 | P.PN ---
Subjective Progress Note Date: 03/25/21 Principal diagnosis: Fever, possible aspiration 60-year-old white male patient with medical history of advanced multiple sclerosis, severe medical debility, chronic cognitive impairment, chronic dysphagia, recurrent aspiration pneumonia and patient had multiple episodes of intubation and mechanical support for previous episodes of pneumonia, seizure disorder, neurogenic bladder, bowel incontinence, and chronic contractures of his upper and lower extremities. Patient has a PEG tube in place for enteral feedings. Patient is nonverbal, does not follow commands, he is very cachectic and debilitated, he is bedbound, resides in the [facility]. Patient's legal guardian is his sister, and despite multiple episodes of aspiration pneumonia and intubation, had refused tracheostomy placement in the past, and has been very firm about keeping the patient a full code, despite his multiple medical problems, quite poor and debilitated condition, and recurrent episodes of respiratory failure related to aspiration. Patient also developed nonhealing ulcerations including his right calcaneus, and nonhealing ulceration of the abdomen, he was seen by the home care services. Patient does have history of ESBL E. coli urinary tract infection, and MRSA and pseudomonal pneumonia. Most recent cultures from his abdomen were positive for MRSA, urine culture on 03/07/2021 was positive for pseudomonas aeruginosa and enterococcus faecalis. Patient had recent hospitalization from 03/09/2021 through 03/15/2021 for another episode of aspiration pneumonia in the right lower lobe, and wound infection and cellulitis of the PEG tube site wound with cultures positive for MRSA. During that same admission he had a urine culture positive for Pseudomonas and enterococcus. He was discharged to the [facility] on 5 days of IV antibiotic course in the form of cefepime per ID service. On 03/23/2021 patient was taken to the emergency department per EMS for evaluation of shortness of breath, cough, and stability of aspiration. Patient also had a low oxygen saturations at that [place] [facility]. His chest x-ray showed no acute cardiopulmonary process. EKG showed sinus tachycardia. Admission blood work was reviewed showing white blood cell count of 11.6, hemoglobin is 13.5, electrolytes are within normal limits, BUN is 25, creatinine 0.63, patient had elevated troponins of 0.086, and 0.101. BNP was 416, urinalysis showed 2+ protein, trace leuks, and no clear evidence of infection, COVID-19 PCR was negative. Patient was febrile, he remains tachycardic, he was started on antibiotics in the form of azithromycin and Rocephin, and ID service has been consulted for recommendations regarding the antibiotics. IV fluids infusing at a rate of 100 ML per hour, he is resting quietly in bed, he is lethargic, but he opens eyes occasionally to voice, does not appear to be in acute distress, he is nonverbal, and is not able to follow command. Blood cul tures and sputum cultures have been ordered. Sputum culture has not yet been collected as the patient is not bringing up any phlegm. On 03/25/2021 patient seen in follow-up on selective care unit, he is resting quietly in bed, occasionally opens eyes to command, otherwise appears to be sleeping, he is on 2 L of oxygen pulse ox of 97%, did have a low-grade fevers last night, with T-max of 100.6F, ID service has switched his antibiotic coverage to Zosyn, and Flagyl. His blood cultures have shown no growth. No new blood work today. Chest x-ray showing linear density in the right lung base representing atelectasis, there is prominence of interstitium bilaterally. Patient is receiving PEG tube feedings, tolerating them well, patient was seen by wound care services, and there will care recommendations were noted. Objective - Vital Signs Vital signs: Vital Signs Temp 98.8 F 03/25/21 11:26 Pulse 89 03/25/21 11:26 Resp 18 03/25/21 11:26 BP 89/59 03/25/21 11:26 Pulse Ox 97 03/25/21 11:26 Intake & Output 03/24/21 03/25/21 03/25/21 18:59 06:59 18:59 Intake Total 900 Output Total 225 560 Balance 675 -560 Weight 75 kg 74.5 kg Intake: Intake, IV Titration 100 Amount metroNIDAZOLE-NS PMX 500 100 mg In Saline 1 100ml.bag @ 100 mls/hr IVPB Q8H [facility] Rx#:[id number] Oral 800 Output: Urine 225 560 Other: Voiding Method Indwelling Catheter Indwelling Catheter Indwelling Catheter # Bowel Movements 1 1 - Exam GENERAL EXAM: Somnolent, nonverbal, cachectic looking, 60-year-old white male, on 2 L of oxygen, the pulse ox of 97%, arousable occasionally to voice, unable to assess orientation due to patient's mental status HEAD: Normocephalic/atraumatic. EYES: Normal reaction of pupils, equal size. Conjunctiva pink, sclera white. NOSE: Clear with pink turbinates. THROAT: No erythema or exudates. NECK: No masses, no JVD, no thyroid enlargement, no adenopathy. CHEST: No chest wall deformity. Symmetrical expansion. LUNGS: Equal air entry with diminished breath sounds CVS: Regular rate and rhythm, normal S1 and S2, no gallops, no murmurs, no rubs ABDOMEN: Soft, nontender. No hepatosplenomegaly, normal bowel sounds, no guarding or rigidity. PEG tube is in place EXTREMITIES: No clubbing, no edema, no cyanosis, 2+ pulses and upper and lower extremities. MUSCULOSKELETAL: Patient is cachectic, with chronic contractures of upper and lower extremities SPINE: No scoliosis or deformity SKIN: No rashes, patient has chronic wound on his right calcaneus, covered with a dressing CENTRAL NERVOUS SYSTEM: Somnolent, occasionally arousable to voice, not responding verbally. - Labs CBC & Chem 7: 03/24/21 07:24 03/24/21 07:24 Labs: Abnormal Lab Results - Last 24 Hours (Table) 03/25/21 03/25/21 03/25/21 Range/Units 00:01 06:19 12:16 POC Glucose (mg/dL) 117 H 137 H 119 H (75-99) mg/dL Microbiology - Last 24 Hours (Table) 03/24/21 01:00 Blood Culture - Preliminary Blood No Growth after 24 hours 03/24/21 01:15 Blood Culture - Preliminary Blood No Growth after 24 hours Assessment and Plan Plan: Assessment: #1. Acute hypoxic respiratory failure related to possibility of aspiration, COVID-19 test was negative, chest x-ray showed no evidence of acute cardiopulmonary disease, patient presented from the [facility] with complaints of worsening cough, and low oxygen saturations #2. Recurrent episodes of aspiration pneumonia and intubation and placement on mechanical ventilator #3. Recent hospitalization from 03/09/2021 through 03/15/2021 for aspiration pneumonia, and wound infection involving the abdomen, right calcaneus #4. Recent pseudomonal and enterococcus urinary tract infection, completed course of cefepime, repeat UA shows no clear evidence of UTI #5. History of ESBL E. coli urinary tract infection #6. Recent MRSA infection involving the abdominal wound on the culture from 03/09/2021 #7. History of MRSA and pseudomonal pneumonia, which could probably related to chronic colonization #8. Advanced multiple sclerosis, with secondary dysphagia, dysarthria, and the patient is bedridden #9. History of seizure disorder #10. Neurogenic bladder #11. History of DVT #12. Hypertension #13. Bowel incontinence #14. History of chronic sacral decubitus ulcer #15. Chronic medical debility, impaired mobility, chronic cognitive impairment, chronic contractures of upper and lower extremities Plan: Antibiotics per ID service recommendations Remains on minimal supplemental oxygen Low-grade fevers, cultures are negative thus far No worsening dyspnea Mentation seems to be at baseline No acute distress noted Today's chest x-ray reviewed Maintain aspiration precautions Long-term prognosis is poor Pulmonary service will continue following the patient on as-needed basis I performed a history & physical examination of the patient and discussed their management with my nurse practitioner, Naheed Pace. I reviewed the nurse practitioner's note and agree with the documented findings and plan of care. Lung sounds are positive for diminished breath sounds. The findings and the impression was discussed with the patient. I attest to the documentation by the nurse practitioner. Time with Patient: Less than 30
--- NOTE | 2021-03-25 13:49 | P.PN ---
Subjective Progress Note Date: 03/25/21 Patient was seen at bedside and he is about the same today compared to yesterday. Objective - Vital Signs Vital signs: Vital Signs Temp 98.8 F 03/25/21 11:26 Pulse 89 03/25/21 13:00 Resp 18 03/25/21 13:00 BP 89/59 03/25/21 11:26 Pulse Ox 97 03/25/21 11:26 Intake & Output 03/24/21 03/25/21 03/25/21 18:59 06:59 18:59 Intake Total 900 Output Total 225 560 Balance 675 -560 Weight 75 kg 74.5 kg Intake: Intake, IV Titration 100 Amount metroNIDAZOLE-NS PMX 500 100 mg In Saline 1 100ml.bag @ 100 mls/hr IVPB Q8H [facility] Rx#:[id number] Oral 800 Output: Urine 225 560 Other: Voiding Method Indwelling Catheter Indwelling Catheter Indwelling Catheter # Bowel Movements 1 1 - Exam GENERAL: The patient is lying in bed and is not in acute distress. NEUROLOGICAL: Higher mental function: The patient is drowsy but aweakable to voice. Not following commands. The patient is and is nonverbal (baseline). Cranial nerves: The pupils are round, equal and reactive. Visual prater: could not assess because of his condition. He was tracking me throughout. No facial weakness. Moving his head side to side tracking me throughout the room. Rest of the cranial nerves could not be assessed because of his condition.. Motor: Is bed bound. The strength is spastic in all 4 extremities. Slightly less over the left upper extremity (decrased tone over the left wrist). Cerebellum: Could not be assessed. Sensation: Could not be assessed. Reflexes (right/left): 3+ Plantars are upgoing bilaterally. - Labs CBC & Chem 7: 03/24/21 07:24 03/24/21 07:24 Labs: Abnormal Lab Results - Last 24 Hours (Table) 03/25/21 03/25/21 03/25/21 Range/Units 00:01 06:19 12:16 POC Glucose (mg/dL) 117 H 137 H 119 H (75-99) mg/dL Microbiology - Last 24 Hours (Table) 03/24/21 01:00 Blood Culture - Preliminary Blood No Growth after 24 hours 03/24/21 01:15 Blood Culture - Preliminary Blood No Growth after 24 hours Assessment and Plan Assessment: Altered mental status due to septic encephalopathy (likely aspiration pneu monia--mentation is baseline Severe multiple sclerosis who is bedridden History of the localized related epilepsy Nonverbal baseline severe dementia Dysphagia status post PEG Reported trigeminal neuralgia Hypertension Urinary incontinence Plan: Continue Tegretol 200 mg 1 tablet twice a day, Vimpat 150 mg 1 tablet twice a day and Keppra thousand milligrams 1 tablet twice a day. Every 4 hours neuro checks We'll defer the rest of the medical management to the pulmonary and the primary team. He has multiple significant comorbidities, has numerous recurrent hospital vi sits, therefore I feel his quality of life is poor and feel his director long term care prognosis is poor. The plan is discussed with the pulmonary team and his nurse. There is no further work-up. Neurologist will sign off. Jamison Hawkins MD Neuro-Hospitalist Time with Patient: Less than 30
[2021-03-25 17:02] LABS: Glucose,Whole Blood 120 mg/dL (75-99)
--- NOTE | 2021-03-25 17:21 | PN ---
PROGRESS NOTE DATE OF SERVICE: 03/25/2021 REASON FOR FOLLOWUP: Aspiration pneumonia and pressure ulcer. INTERVAL HISTORY: Patient is currently afebrile. The patient is breathing comfortably on nasal cannula oxygen. No vomiting, diarrhea or any changes per nursing staff. Patient is ( ). EXAMINATION: Pulse is 89, temperature 98.8. He is 97% on 2 L nasal cannula. General description is a middle-aged male lying in bed in no distress. Respiratory system: Unlabored breathing, coarse breath sounds at the base. No wheeze. Heart: S1, S2. Regular rate and rhythm. Abdomen soft, no tenderness. Extremities: No edema of the feet. LABS: No new labs been obtained today. Blood culture so far negative. IMPRESSION/PLAN: 1. Patient admitted to the hospital with an episode of aspiration, congested cough and concern for aspiration pneumonia. The patient is covered with Zosyn. Will try to obtain a sputum ( ) antibiotics. 2. Right heel ulcer. Continue local wound care with dry Aquacel Silver dressing, keep the area dry and off the pressure. Sister was at the bedside, questions and concerns were answered. MMODL / IJN: [id number] /
[2021-03-25] MEDS: FAMOTIDINE 20 MG TAB PEG/G-TUBE SCH (21:26)
[2021-03-26 00:12] LABS: Glucose,Whole Blood 103 mg/dL (75-99)
[2021-03-26] MEDS: OXYBUTYNIN CHLORIDE 5 MG TAB PEG/G-TUBE SCH ×3 (05:05→21:31)
[2021-03-26] MEDS: BACLOFEN 10 MG TAB PEG/G-TUBE SCH ×3 (05:05→21:31)
[2021-03-26 06:30] LABS: Glucose,Whole Blood 101 mg/dL (75-99)
[2021-03-26] MEDS: IPRATROPIUM-ALBUTEROL 3 ML NEB INHALATION PRN ×4 (07:51→20:29)
[2021-03-26] MEDS: PIPERACILLIN-TAZOBACTAM 3.375 GM in SODIUM CHLORIDE 0.9% 100 ML IVPB SCH ×3 (08:15→23:31)
[2021-03-26] MEDS: carBAMazepine 200 MG TAB PEG/G-TUBE SCH ×2 (09:34→21:31)
[2021-03-26] MEDS: METOPROLOL TARTRATE 25 MG TAB PEG/G-TUBE SCH ×2 (09:34→21:31)
[2021-03-26] MEDS: CHOLECALCIFEROL 25 MCG (1000 IU) TABLET PEG/G-TUBE SCH (09:34)
[2021-03-26] MEDS: LACOSAMIDE 150 MG TABLET PEG/G-TUBE SCH ×2 (09:34→21:31)
[2021-03-26] MEDS: ASPIRIN 81 MG PEG/G-TUBE SCH (09:34)
[2021-03-26] MEDS: NON FORMULARY DRUG (Cranberry Fruit Extract [Cranberry] 500 MG Tablet) PEG/G-TUBE SCH (09:35)
[2021-03-26] MEDS: LACTULOSE 20 GM/30 ML CUP PEG/G-TUBE SCH ×2 (09:35→21:21)
[2021-03-26] MEDS: DOCUSATE ORAL SOLN 100 MG/10 ML CUP PEG/G-TUBE SCH ×2 (09:35→21:21)
[2021-03-26] MEDS: HEPARIN SODIUM,PORCINE/PF 5,000 UNIT/0.5 ML SYRINGE SQ SCH ×2 (09:35→21:30)
[2021-03-26] MEDS: levETIRAcetam IV 1,000 MG in SALINE 1 100ML.BAG IVPB SCH ×2 (09:36→21:31)
--- NOTE | 2021-03-26 10:43 | P.PN ---
Subjective Progress Note Date: 03/25/21 Principal diagnosis: Severe sepsis Acute respiratory failure/aspiration pneumonia Elevated troponin/ possible demand ischemia due to severe sepsis Moderate protein calorie malnutrition Severe multiple sclerosis 60-year-old male had multiple hospitalizations because of aspiration. Patient does have a PEG tube in place. Patient came in septic again did aspirate again was vomiting at the halfway. Patient has advanced multiple sclerosis with contractures usually nonverbal. Patient is cachectic debilitated remains full code because of the insistence from sister. Patient had history of Pseudomonas ESBL and enterococcal infections along with MRSA in the past. Patient is presently being treated for aspiration pneumonia again with multiple antibiotics including ceftriaxone, metronidazole and azithromycin multiple consultants including infectious disease is following the patient patient is severely septic patient also had a mildly elevated troponin because of his cardiology is following the patient although troponin elevation is probably secondary to sepsis. Patient has a stage II decubitus ulcer in the sacral area as well as heel for which a wound care is following the patient. Objective - Vital Signs Vital signs: Vital Signs Temp 98.8 F 03/25/21 11:26 Pulse 89 03/25/21 13:00 Resp 18 03/25/21 13:00 BP 89/59 03/25/21 11:26 Pulse Ox 97 03/25/21 11:26 Intake & Output 03/24/21 03/25/21 03/25/21 18:59 06:59 18:59 Intake Total 900 Output Total 225 560 Balance 675 -560 Weight 75 kg 74.5 kg Intake: Intake, IV Titration 100 Amount metroNIDAZOLE-NS PMX 500 100 mg In Saline 1 100ml.bag @ 100 mls/hr IVPB Q8H [facility] Rx#:[id number] Oral 800 Output: Urine 225 560 Other: Voiding Method Indwelling Catheter Indwelling Catheter Indwelling Catheter # Bowel Movements 1 1 - Exam GENERAL: Non-verbal thin built cachectic with contractors PEG tube site looks okay patient is bit diaphoretic HEENT: Pupils are round and equally reacting to light. EOMI. No scleral icterus. No conjunctival pallor. Normocephalic, atraumatic. No pharyngeal erythema. No thyromegaly. CARDIOVASCULAR: S1 and S2 present. No murmurs, rubs, or gallops. PULMONARY: Chest is clear to auscultation, no wheezing or crackles. ABDOMEN: Soft, nontender, PEG tube in place. MUSCULOSKELETAL: No joint swelling or deformity. EXTREMITIES: No cyanosis, clubbing, or pedal edema. NEUROLOGICAL: Gross neurological examination did not reveal any focal deficits. Patient does have contractures and chronic weakness thin built significant muscle atrophy in all 4 limbs as well as chest wall as well as abdominal wall muscle atrophy SKIN: Stage II decubitus ulcers as mentioned above - Labs CBC & Chem 7: 03/24/21 07:24 03/24/21 07:24 Labs: Abnormal Lab Results - Last 24 Hours (Table) 03/25/21 03/25/21 03/25/21 Range/Units 00:01 06:19 12:16 POC Glucose (mg/dL) 117 H 137 H 119 H (75-99) mg/dL Microbiology - Last 24 Hours (Table) 03/24/21 01:00 Blood Culture - Preliminary Blood No Growth after 24 hours 03/24/21 01:15 Blood Culture - Preliminary Blood No Growth after 24 hours Assessment and Plan Assessment: -Severe sepsis: Secondary to aspiration pneumonia there may be a competent of chemical pneumonitis. Patient will be continued on above-mentioned antibiotics his overall prognosis is extremely poor. Patient remains a full code at this time. Rest of the workup for sepsis is so far negative -Troponin elevation secondary to severe sepsis -Moderate protein calorie malnutrition patient is on PEG tube feedings to resume -Severe multiple sclerosis with contractures. -Neurogenic bladder with multiple urinary tract infections in the past -Decubitus ulcer for which patient will undergo local wound care -Gastroesophageal reflux disease -Seizure disorder -Hypertension -History of DVT in the past -Chronic medical debility -DVT prophylaxis: Subcutaneous heparin
[2021-03-26 12:18] LABS: Glucose,Whole Blood 94 mg/dL (75-99)
[2021-03-26] MEDS: SODIUM CHLORIDE 0.9% 1,000 ML IV SCH (13:57)
[2021-03-26 18:00] LABS: Glucose,Whole Blood 94 mg/dL (75-99)
[2021-03-26] MEDS: FAMOTIDINE 20 MG TAB PEG/G-TUBE SCH (21:31)
[2021-03-26 23:57] LABS: Glucose,Whole Blood 101 mg/dL (75-99)
--- NOTE | 2021-03-27 00:10 | PN ---
PROGRESS NOTE DATE OF SERVICE: 03/26/2021. REASON FOR FOLLOWUP: Aspiration pneumonia. INTERVAL HISTORY: The patient is currently afebrile. The patient is more awake and alert today, he is breathing comfortably. No vomiting and no change medications. PHYSICAL EXAMINATION: Blood pressure 138/83 with a pulse of 94, temperature 98.5. He is 98% on 2 L nasal cannula. Description: He is a middle-aged male lying in bed, in no distress. RESPIRATORY SYSTEM: Unlabored breathing, coarse breath sounds. No wheeze. HEART: S1, S2. Regular rate. ABDOMEN: LABS: No new labs have been obtained today. Blood culture has been negative. DIAGNOSTIC IMPRESSION AND PLAN: Patient admitted to the hospital with fever, did have a congested cough and there a was question of possible pneumonia. Patient is covered with Zosyn, to continue while waiting for the culture to finalize and monitor clinical course. MMODL / IJN: [id number] /
[2021-03-27] MEDS: SODIUM CHLORIDE 0.9% 1,000 ML IV SCH ×2 (04:00→09:10)
[2021-03-27] MEDS: OXYBUTYNIN CHLORIDE 5 MG TAB PEG/G-TUBE SCH ×3 (05:09→21:26)
[2021-03-27] MEDS: BACLOFEN 10 MG TAB PEG/G-TUBE SCH ×3 (05:09→21:26)
[2021-03-27 06:20] LABS: Glucose,Whole Blood 115 mg/dL (75-99)
[2021-03-27 07:28] LABS: African American GFR (CKD) >90 (>60 ml/min/1.73 sqM); Anion Gap 7 mmol/L; Blood Urea Nitrogen 16 mg/dL (9-20); Calcium 8.5 mg/dL (8.4-10.2); Carbon Dioxide 22 mmol/L (22-30); Chloride 111 mmol/L (98-107); Glucose 105 mg/dL (74-99); Non-African American GFR(CKD) >90 (>60 ml/min/1.73 sqM); Sodium 140 mmol/L (137-145)
[2021-03-27 07:29] LABS: Potassium 4.2 mmol/L (3.5-5.1)
[2021-03-27] MEDS: IPRATROPIUM-ALBUTEROL 3 ML NEB INHALATION PRN ×3 (08:11→15:52)
[2021-03-27] MEDS: HEPARIN SODIUM,PORCINE/PF 5,000 UNIT/0.5 ML SYRINGE SQ SCH ×2 (08:53→21:27)
[2021-03-27] MEDS: DOCUSATE ORAL SOLN 100 MG/10 ML CUP PEG/G-TUBE SCH ×2 (08:53→21:27)
[2021-03-27] MEDS: LACOSAMIDE 150 MG TABLET PEG/G-TUBE SCH ×2 (08:53→21:26)
[2021-03-27] MEDS: SCOPOLAMINE 1.5MG/72HR PATCH TRANSDERM SCH (08:53)
[2021-03-27] MEDS: levETIRAcetam IV 1,000 MG in SALINE 1 100ML.BAG IVPB SCH ×2 (08:53→21:20)
[2021-03-27] MEDS: carBAMazepine 200 MG TAB PEG/G-TUBE SCH ×2 (08:53→21:27)
[2021-03-27] MEDS: PIPERACILLIN-TAZOBACTAM 3.375 GM in SODIUM CHLORIDE 0.9% 100 ML IVPB SCH ×3 (08:53→23:32)
[2021-03-27] MEDS: LACTULOSE 20 GM/30 ML CUP PEG/G-TUBE SCH ×2 (08:53→21:28)
[2021-03-27] MEDS: CHOLECALCIFEROL 25 MCG (1000 IU) TABLET PEG/G-TUBE SCH (08:53)
[2021-03-27] MEDS: ASPIRIN 81 MG PEG/G-TUBE SCH (08:53)
[2021-03-27] MEDS: METOPROLOL TARTRATE 25 MG TAB PEG/G-TUBE SCH ×2 (08:53→21:26)
[2021-03-27] MEDS: NON FORMULARY DRUG (Cranberry Fruit Extract [Cranberry] 500 MG Tablet) PEG/G-TUBE SCH (08:54)
[2021-03-27 10:45] LABS: Anisocytosis Slight; Basophils % (A) 0 %; Eosinophils # (A) 0.6 k/uL (0-0.7); Eosinophils % (A) 9 %; HCT 32.6 % (39.0-53.0); HGB 10.4 gm/dL (13.0-17.5); Hypochromasia Moderate; Lymphocytes # (A) 1.1 k/uL (1.0-4.8); Lymphocytes % (A) 16 %; MCH 27.2 pg (25.0-35.0); MCHC 31.9 g/dL (31.0-37.0); MCV 85.1 fL (80.0-100.0); Mean Platelet Volume 8.9; Monocytes # (A) 0.5 k/uL (0-1.0); Monocytes % (A) 8 %; Neutrophils # (A) 4.4 k/uL (1.3-7.7); Neutrophils % (A) 65 %; Platelet Count 288 k/uL (150-450); RBC 3.82 m/uL (4.30-5.90); RDW 16.1 % (11.5-15.5); WBC 6.8 k/uL (3.8-10.6)
[2021-03-27 12:11] LABS: Glucose,Whole Blood 93 mg/dL (75-99)
--- NOTE | 2021-03-27 19:08 | P.PN ---
Subjective Progress Note Date: 03/27/21 Principal diagnosis: Severe sepsis Acute respiratory failure/aspiration pneumonia Elevated troponin/ possible demand ischemia due to severe sepsis Moderate protein calorie malnutrition Severe multiple sclerosis 60-year-old male had multiple hospitalizations because of aspiration. Patient does have a PEG tube in place. Patient came in septic again did aspirate again was vomiting at the [facility]. Patient has advanced multiple sclerosis with contractures usually nonverbal. Patient is cachectic debilitated remains full code because of the insistence from sister. Patient had history of Pseudomonas ESBL and enterococcal infections along with MRSA in the past. Patient is presently being treated for aspiration pneumonia again with multiple antibiotics including ceftriaxone, metronidazole and azithromycin multiple consultants including infectious disease is following the patient patient is severely septic patient also had a mildly elevated troponin because of his cardiology is following the patient although troponin elevation is probably secondary to sepsis. Patient has a stage II decubitus ulcer in the sacral area as well as heel for which a wound care is following the patient. 03/27/2021 Patient is seen and evaluated with family members at bedside; patient is breathing comfortably Vital signs are reviewed and stable with a temperature of 98.5, pulse 94, blood pressure 138/83 with SpO2 of 98% on 2 L Labs are reviewed and reveal WBC 6.8, hemoglobin 10.4, hematocrit 32.6 and platelet count of 288, sodium 140, potassium 4.2, BUN/creatinine of 16/0.43 Patient is admitted with possible aspiration pneumonia and is being treated with IV Zosyn; patient has been pancultured and results are pending Objective - Vital Signs Vital signs: Vital Signs Temp 96.3 F L 03/27/21 08:55 Pulse 86 03/27/21 08:55 Resp 18 03/27/21 08:55 BP 155/89 03/27/21 08:55 Pulse Ox 99 03/27/21 08:55 Intake & Output 03/26/21 03/27/21 03/27/21 18:59 06:59 18:59 Output Total 1580 1450 400 Balance -1580 -1450 -400 Weight 76 kg Output: Urine 1580 1450 400 Uretheral (Stein) 580 300 400 Other: Voiding Method Indwelling Catheter Indwelling Catheter Indwelling Catheter - Exam GENERAL: Non-verbal thin built cachectic with contractors PEG tube site looks okay patient is bit diaphoretic HEENT: Pupils are round and equally reacting to light. EOMI. No scleral icterus. No conjunctival pallor. Normocephalic, atraumatic. No pharyngeal erythema. No thyromegaly. CARDIOVASCULAR: S1 and S2 present. No murmurs, rubs, or gallops. PULMONARY: Chest is clear to auscultation, no wheezing or crackles. ABDOMEN: Soft, nontender, PEG tube in place. MUSCULOSKELETAL: No joint swelling or deformity. EXTREMITIES: No cyanosis, clubbing, or pedal edema. NEUROLOGICAL: Gross neurological examination did not reveal any focal deficits. Patient does have contractures and chronic weakness thin built significant muscle atrophy in all 4 limbs as well as chest wall as well as abdominal wall muscle atrophy SKIN: Stage II decubitus ulcers as mentioned above - Labs CBC & Chem 7: 03/27/21 06:40 03/27/21 06:40 Labs: Abnormal Lab Results - Last 24 Hours (Table) 03/26/21 03/27/21 03/27/21 Range/Units 23:55 06:19 06:40 Chloride 111 H (98-107) mmol/L Creatinine 0.43 L (0.66-1.25) mg/dL Glucose 105 H (74-99) mg/dL POC Glucose (mg/dL) 101 H 115 H (75-99) mg/dL Microbiology - Last 24 Hours (Table) 03/24/21 01:00 Blood Culture - Preliminary Blood No Growth after 72 hours 03/24/21 01:15 Blood Culture - Preliminary Blood No Growth after 72 hours 03/24/21 21:36 Blood Culture - Preliminary Blood No Growth after 48 hours Assessment and Plan Assessment: -Severe sepsis: Secondary to aspiration pneumonia there may be a competent of chemical pneumonitis. Patient will be continued on above-mentioned antibiotics his overall prognosis is extremely poor. Patient remains a full code at this time. Rest of the workup for sepsis is so far negative -Troponin elevation secondary to severe sepsis -Moderate protein calorie malnutrition patient is on PEG tube feedings to resume -Severe multiple sclerosis with contractures. -Neurogenic bladder with multiple urinary tract infections in the past -Decubitus ulcer for which patient will undergo local wound care -Gastroesophageal reflux disease -Seizure disorder -Hypertension -History of DVT in the past -Chronic medical debility -DVT prophylaxis: Subcutaneous heparin
[2021-03-27] MEDS: FAMOTIDINE 20 MG TAB PEG/G-TUBE SCH (21:26)
--- NOTE | 2021-03-27 23:32 | PN ---
PROGRESS NOTE DATE OF SERVICE: 03/27/2021 REASON FOR FOLLOWUP: Aspiration pneumonia. INTERVAL HISTORY: Patient is afebrile. The patient is breathing comfortably. Patient is hemodynamically stable. No vomiting, diarrhea. No change reported by the nursing staff. The patient himself was unable to provide any history. PHYSICAL EXAMINATION: Blood pressure 158/79, pulse of 88, temperature 98.2. He is 100% on 2 L nasal cannula. General description is a middle-aged male lying in bed in no distress. Respiratory system: Unlabored breathing, coarse breath sounds in the bases bilaterally. Heart S1, S2. Regular rate and rhythm. Abdomen soft, no tenderness. LABS: Hemoglobin is 10.1, white count 6.8. BUN of 16, creatinine 0.43. Blood culture negative. Sputum was not collected. DIAGNOSTIC IMPRESSION AND PLAN: Patient admitted to the hospital with fever, shortness of breath, and concern for aspiration pneumonia. Overall response to the Zosyn to be continued for another week in the outpatient setting as the patient already has a PICC line and continue supportive care. MMODL / IJN: [id number] /
[2021-03-28 00:45] LABS: Glucose,Whole Blood 111 mg/dL (75-99)
[2021-03-28] MEDS: OXYBUTYNIN CHLORIDE 5 MG TAB PEG/G-TUBE SCH ×3 (05:54→21:20)
[2021-03-28] MEDS: BACLOFEN 10 MG TAB PEG/G-TUBE SCH ×3 (05:54→21:20)
[2021-03-28 06:38] LABS: Glucose,Whole Blood 107 mg/dL (75-99)
[2021-03-28 07:56] LABS: Basophils % (A) 0 %; Eosinophils # (A) 0.5 k/uL (0-0.7); Eosinophils % (A) 8 %; HCT 32.7 % (39.0-53.0); HGB 10.3 gm/dL (13.0-17.5); Hypochromasia Slight; Lymphocytes % (A) 16 %; MCH 26.4 pg (25.0-35.0); MCHC 31.6 g/dL (31.0-37.0); MCV 83.5 fL (80.0-100.0); Mean Platelet Volume 7.6; Monocytes # (A) 0.3 k/uL (0-1.0); Monocytes % (A) 5 %; Neutrophils # (A) 4.3 k/uL (1.3-7.7); Neutrophils % (A) 69 %; Platelet Count 322 k/uL (150-450); RBC 3.91 m/uL (4.30-5.90); RDW 15.9 % (11.5-15.5); WBC 6.3 k/uL (3.8-10.6)
[2021-03-28] MEDS: SODIUM CHLORIDE 0.9% 1,000 ML IV SCH ×3 (07:58→23:58)
[2021-03-28 08:02] LABS: African American GFR (CKD) >90 (>60 ml/min/1.73 sqM); Anion Gap 7 mmol/L; Blood Urea Nitrogen 16 mg/dL (9-20); Calcium 8.7 mg/dL (8.4-10.2); Carbon Dioxide 24 mmol/L (22-30); Chloride 110 mmol/L (98-107); Glucose 107 mg/dL (74-99); Non-African American GFR(CKD) >90 (>60 ml/min/1.73 sqM); Potassium 4.2 mmol/L (3.5-5.1); Sodium 141 mmol/L (137-145)
[2021-03-28] MEDS: IPRATROPIUM-ALBUTEROL 3 ML NEB INHALATION PRN ×3 (08:41→21:10)
[2021-03-28] MEDS: PIPERACILLIN-TAZOBACTAM 3.375 GM in SODIUM CHLORIDE 0.9% 100 ML IVPB SCH ×3 (10:33→23:58)
[2021-03-28] MEDS: ASPIRIN 81 MG PEG/G-TUBE SCH (10:36)
[2021-03-28] MEDS: carBAMazepine 200 MG TAB PEG/G-TUBE SCH ×2 (10:36→21:19)
[2021-03-28] MEDS: DOCUSATE ORAL SOLN 100 MG/10 ML CUP PEG/G-TUBE SCH ×2 (10:37→21:22)
[2021-03-28] MEDS: NON FORMULARY DRUG (Cranberry Fruit Extract [Cranberry] 500 MG Tablet) PEG/G-TUBE SCH (10:37)
[2021-03-28] MEDS: HEPARIN SODIUM,PORCINE/PF 5,000 UNIT/0.5 ML SYRINGE SQ SCH ×2 (10:37→21:21)
[2021-03-28] MEDS: CHOLECALCIFEROL 25 MCG (1000 IU) TABLET PEG/G-TUBE SCH (10:37)
[2021-03-28] MEDS: levETIRAcetam IV 1,000 MG in SALINE 1 100ML.BAG IVPB SCH ×2 (10:38→21:22)
[2021-03-28] MEDS: LACTULOSE 20 GM/30 ML CUP PEG/G-TUBE SCH ×2 (10:38→21:21)
[2021-03-28] MEDS: LACOSAMIDE 150 MG TABLET PEG/G-TUBE SCH ×2 (10:39→21:21)
[2021-03-28] MEDS: METOPROLOL TARTRATE 25 MG TAB PEG/G-TUBE SCH ×2 (10:39→21:20)
[2021-03-28 12:18] LABS: Glucose,Whole Blood 120 mg/dL (75-99)
--- NOTE | 2021-03-28 14:05 | PN ---
PROGRESS NOTE DATE OF SERVICE: 03/28/2021 REASON FOR FOLLOWUP VISIT: Aspiration pneumonia. INTERVAL HISTORY: The patient is currently afebrile. The patient has been breathing comfortably. He is hemodynamically stable currently on 2 L nasal cannula. No vomiting. No diarrhea. No other changes reported by the nursing staff. PHYSICAL EXAMINATION: Blood pressure 144/81, pulse 88, temperature 98.0, he is 98% on 2 L nasal cannula. General description: Middle aged male lying in bed in no distress. Respiratory system: Unlabored breathing, decreased intensity of breath sounds. No wheeze. Heart S1, S2. Regular rate and rhythm. Abdomen soft, no tenderness. LABORATORY DATA: Hemoglobin 10.3, white count 6.3, BUN of 16 and creatinine 0.48. DIAGNOSTIC IMPRESSION AND PLAN: Patient admitted to the hospital with an episode of pneumonia, likely aspiration etiology clinically responded to Zosyn to continue for another week to finish a course of therapy. Continue supportive care. MMODL / IJN: [id number] /
[2021-03-28 20:24] LABS: Glucose,Whole Blood 105 mg/dL (75-99)
[2021-03-28] MEDS: FAMOTIDINE 20 MG TAB PEG/G-TUBE SCH (21:20)
--- NOTE | 2021-03-28 23:42 | P.PN ---
Subjective Progress Note Date: 03/28/21 Principal diagnosis: Severe sepsis Acute respiratory failure/aspiration pneumonia Elevated troponin/ possible demand ischemia due to severe sepsis Moderate protein calorie malnutrition Severe multiple sclerosis 60-year-old male had multiple hospitalizations because of aspiration. Patient does have a PEG tube in place. Patient came in septic again did aspirate again was vomiting at the [facility]. Patient has advanced multiple sclerosis with contractures usually nonverbal. Patient is cachectic debilitated remains full code because of the insistence from sister. Patient had history of Pseudomonas ESBL and enterococcal infections along with MRSA in the past. Patient is presently being treated for aspiration pneumonia again with multiple antibiotics including ceftriaxone, metronidazole and azithromycin multiple consultants including infectious disease is following the patient patient is severely septic patient also had a mildly elevated troponin because of his cardiology is following the patient although troponin elevation is probably secondary to sepsis. Patient has a stage II decubitus ulcer in the sacral area as well as heel for which a wound care is following the patient. 03/27/2021 Patient is seen and evaluated with family members at bedside; patient is breathing comfortably Vital signs are reviewed and stable with a temperature of 98.5, pulse 94, blood pressure 138/83 with SpO2 of 98% on 2 L Labs are reviewed and reveal WBC 6.8, hemoglobin 10.4, hematocrit 32.6 and platelet count of 288, sodium 140, potassium 4.2, BUN/creatinine of 16/0.43 Patient is admitted with possible aspiration pneumonia and is being treated with IV Zosyn; patient has been pancultured and results are pending Objective - Vital Signs Vital signs: Vital Signs Temp 98.1 F 03/28/21 19:31 Pulse 78 03/28/21 21:23 Resp 16 03/28/21 19:31 BP 140/91 03/28/21 19:31 Pulse Ox 99 03/28/21 19:31 Intake & Output 03/28/21 03/28/21 03/29/21 06:59 18:59 06:59 Intake Total 0 Output Total 2500 725 1400 Balance -2499725 -1400 Weight 74.5 kg Intake: Oral 0 Output: Urine 2500 725 1400 Uretheral (Stein) 1400 Other: Voiding Method Indwelling Catheter Indwelling Catheter - Exam GENERAL: Non-verbal thin built cachectic with contractors . non verbal HEENT: Pupils are round and equally reacting to light. EOMI. No scleral icterus. No conjunctival pallor. Normocephalic, atraumatic. No pharyngeal erythema. No thyromegaly. CARDIOVASCULAR: S1 and S2 present. No murmurs, rubs, or gallops. PULMONARY: Chest is clear to auscultation, no wheezing or crackles. ABDOMEN: Soft, nontender, PEG tube in place.PEG tube site looks okay MUSCULOSKELETAL: No joint swelling or deformity. EXTREMITIES: No cyanosis, clubbing, or pedal edema. NEUROLOGICAL: Patient does have contractures and chronic weakness thin built significant muscle atrophy in all 4 limbs as well as chest wall as well as abdominal wall muscle atrophy. SKIN: Stage II decubitus ulcers - Labs CBC & Chem 7: 03/28/21 07:04 03/28/21 07:04 Labs: Abnormal Lab Results - Last 24 Hours (Table) 03/28/21 03/28/21 03/28/21 Range/Units 00:13 06:13 07:04 RBC 3.91 L (4.30-5.90) m/uL Hgb 10.3 L (13.0-17.5) gm/dL Hct 32.7 L (39.0-53.0) % RDW 15.9 H (11.5-15.5) % Chloride (98-107) mmol/L Creatinine (0.66-1.25) mg/dL Glucose (74-99) mg/dL POC Glucose (mg/dL) 111 H 107 H (75-99) mg/dL 03/28/21 03/28/21 03/28/21 Range/Units 07:04 11:59 20:23 RBC (4.30-5.90) m/uL Hgb (13.0-17.5) gm/dL Hct (39.0-53.0) % RDW (11.5-15.5) % Chloride 110 H (98-107) mmol/L Creatinine 0.48 L (0.66-1.25) mg/dL Glucose 107 H (74-99) mg/dL POC Glucose (mg/dL) 120 H 105 H (75-99) mg/dL Microbiology - Last 24 Hours (Table) 03/24/21 01:00 Blood Culture - Preliminary Blood No Growth after 96 hours 03/24/21 01:15 Blood Culture - Preliminary Blood No Growth after 96 hours 03/24/21 21:36 Blood Culture - Preliminary Blood No Growth after 72 hours Assessment and Plan Assessment: -Severe sepsis: Secondary to aspiration pneumonia there may be a competent of chemical pneumonitis. Patient will be continued on Zosyn, his overall prognosis is extremely poor. Patient remains a full code at this time. Rest of the workup for sepsis is so far negative. -Troponin elevation secondary to severe sepsis/ demand ischemia -Moderate protein calorie malnutrition patient is on PEG tube feedings to resume -Severe multiple sclerosis with contractures. -Neurogenic bladder with multiple urinary tract infections in the past -Decubitus ulcer for which patient will undergo local wound care -Gastroesophageal reflux disease -Seizure disorder -Hypertension -History of DVT in the past -Chronic medical debility -DVT prophylaxis: Subcutaneous heparin Time with Patient: Greater than 30
[2021-03-29 00:08] LABS: Glucose,Whole Blood 118 mg/dL (75-99)
[2021-03-29] MEDS: BACLOFEN 10 MG TAB PEG/G-TUBE SCH ×3 (05:56→23:08)
[2021-03-29] MEDS: OXYBUTYNIN CHLORIDE 5 MG TAB PEG/G-TUBE SCH ×3 (05:56→23:08)
[2021-03-29 06:15] LABS: Glucose,Whole Blood 121 mg/dL (75-99)
[2021-03-29 08:00] LABS: Anisocytosis Slight; Basophils % (A) 0 %; Eosinophils # (A) 0.5 k/uL (0-0.7); Eosinophils % (A) 6 %; HCT 32.7 % (39.0-53.0); HGB 10.4 gm/dL (13.0-17.5); Hypochromasia Slight; Lymphocytes # (A) 1.1 k/uL (1.0-4.8); Lymphocytes % (A) 14 %; MCH 26.5 pg (25.0-35.0); MCHC 31.9 g/dL (31.0-37.0); MCV 83.1 fL (80.0-100.0); Mean Platelet Volume 7.8; Monocytes # (A) 0.4 k/uL (0-1.0); Monocytes % (A) 6 %; Neutrophils # (A) 5.5 k/uL (1.3-7.7); Neutrophils % (A) 72 %; Platelet Count 351 k/uL (150-450); RBC 3.93 m/uL (4.30-5.90); RDW 16.2 % (11.5-15.5); WBC 7.5 k/uL (3.8-10.6)
[2021-03-29 08:21] LABS: African American GFR (CKD) >90 (>60 ml/min/1.73 sqM); Anion Gap 7 mmol/L; Blood Urea Nitrogen 19 mg/dL (9-20); Carbon Dioxide 27 mmol/L (22-30); Chloride 107 mmol/L (98-107); Glucose 112 mg/dL (74-99); Non-African American GFR(CKD) >90 (>60 ml/min/1.73 sqM); Potassium 4.4 mmol/L (3.5-5.1); Sodium 141 mmol/L (137-145)
[2021-03-29] MEDS: IPRATROPIUM-ALBUTEROL 3 ML NEB INHALATION PRN ×3 (09:07→20:47)
[2021-03-29] MEDS: PIPERACILLIN-TAZOBACTAM 3.375 GM in SODIUM CHLORIDE 0.9% 100 ML IVPB SCH ×3 (09:56→23:47)
[2021-03-29] MEDS: ASPIRIN 81 MG PEG/G-TUBE SCH (09:56)
[2021-03-29] MEDS: carBAMazepine 200 MG TAB PEG/G-TUBE SCH ×2 (09:56→23:09)
[2021-03-29] MEDS: levETIRAcetam IV 1,000 MG in SALINE 1 100ML.BAG IVPB SCH ×2 (09:57→23:06)
[2021-03-29] MEDS: HEPARIN SODIUM,PORCINE/PF 5,000 UNIT/0.5 ML SYRINGE SQ SCH ×2 (09:57→23:08)
[2021-03-29] MEDS: CHOLECALCIFEROL 25 MCG (1000 IU) TABLET PEG/G-TUBE SCH (09:57)
[2021-03-29] MEDS: DOCUSATE ORAL SOLN 100 MG/10 ML CUP PEG/G-TUBE SCH ×2 (09:57→23:07)
[2021-03-29] MEDS: METOPROLOL TARTRATE 25 MG TAB PEG/G-TUBE SCH ×2 (09:57→23:08)
[2021-03-29] MEDS: LACOSAMIDE 150 MG TABLET PEG/G-TUBE SCH ×2 (09:57→23:08)
[2021-03-29] MEDS: LACTULOSE 20 GM/30 ML CUP PEG/G-TUBE SCH ×2 (09:57→23:07)
[2021-03-29] MEDS: NON FORMULARY DRUG (Cranberry Fruit Extract [Cranberry] 500 MG Tablet) PEG/G-TUBE SCH (09:58)
[2021-03-29 11:55] LABS: Glucose,Whole Blood 106 mg/dL (75-99)
[2021-03-29 14:32] VITALS: BMI 23.6
[2021-03-29 16:48] LABS: Glucose,Whole Blood 114 mg/dL (75-99)
--- NOTE | 2021-03-29 19:33 | PN ---
PROGRESS NOTE DATE OF SERVICE: 03/29/2021 REASON FOR FOLLOWUP: Aspiration pneumonia. INTERVAL HISTORY: The patient is afebrile. The patient is hemodynamically stable. The patient is breathing comfortably. No vomiting, diarrhea, or other changes reported by nursing staff. PHYSICAL EXAMINATION: Blood pressure 128/79, pulse of 84, temperature 98. He is 95% on 1 L nasal cannula. General description is a middle-aged male lying in bed in no distress. Respiratory system: Unlabored breathing, some coarse breath sounds at the base. No wheeze. Heart: S1, S2. Regular rate and rhythm. Abdomen soft, no tenderness. LABS: Hemoglobin is 10.1, white count 7.5. BUN of 19, creatinine 0.54. DIAGNOSTIC IMPRESSION AND PLAN: Patient with admission to the hospital with an episode of aspiration worsening respiratory status and concern for aspiration pneumonia. Patient's overall improvement on Zosyn to continue for another 5-7 days to finish a course of therapy and continue supportive care. MMODL / IJN: [id number] /
[2021-03-29] MEDS: FAMOTIDINE 20 MG TAB PEG/G-TUBE SCH (23:08)
[2021-03-29] MEDS: SODIUM CHLORIDE 0.9% 1,000 ML IV SCH (23:09)
[2021-03-30 00:10] LABS: Glucose,Whole Blood 94 mg/dL (75-99)
[2021-03-30 05:49] LABS: Glucose,Whole Blood 110 mg/dL (75-99)
[2021-03-30] MEDS: OXYBUTYNIN CHLORIDE 5 MG TAB PEG/G-TUBE SCH ×3 (06:27→22:52)
[2021-03-30] MEDS: BACLOFEN 10 MG TAB PEG/G-TUBE SCH ×3 (06:27→22:51)
[2021-03-30] MEDS: levETIRAcetam IV 1,000 MG in SALINE 1 100ML.BAG IVPB SCH (08:58)
[2021-03-30] MEDS: PIPERACILLIN-TAZOBACTAM 3.375 GM in SODIUM CHLORIDE 0.9% 100 ML IVPB SCH ×2 (08:58→16:18)
[2021-03-30] MEDS: LACTULOSE 20 GM/30 ML CUP PEG/G-TUBE SCH ×2 (09:03→22:52)
[2021-03-30] MEDS: HEPARIN SODIUM,PORCINE/PF 5,000 UNIT/0.5 ML SYRINGE SQ SCH ×2 (09:03→22:50)
[2021-03-30] MEDS: LACOSAMIDE 150 MG TABLET PEG/G-TUBE SCH ×2 (09:04→22:52)
[2021-03-30] MEDS: SCOPOLAMINE 1.5MG/72HR PATCH TRANSDERM SCH (09:04)
[2021-03-30] MEDS: DOCUSATE ORAL SOLN 100 MG/10 ML CUP PEG/G-TUBE SCH ×2 (09:04→22:52)
[2021-03-30] MEDS: ASPIRIN 81 MG PEG/G-TUBE SCH (09:04)
[2021-03-30] MEDS: CHOLECALCIFEROL 25 MCG (1000 IU) TABLET PEG/G-TUBE SCH (09:04)
[2021-03-30] MEDS: METOPROLOL TARTRATE 25 MG TAB PEG/G-TUBE SCH ×2 (09:04→22:51)
[2021-03-30] MEDS: IPRATROPIUM-ALBUTEROL 3 ML NEB INHALATION PRN ×2 (09:17→12:14)
[2021-03-30] MEDS: carBAMazepine 200 MG TAB PEG/G-TUBE SCH ×2 (09:41→22:52)
[2021-03-30] MEDS: NON FORMULARY DRUG (Cranberry Fruit Extract [Cranberry] 500 MG Tablet) PEG/G-TUBE SCH (11:07)
[2021-03-30 11:38] LABS: Glucose,Whole Blood 95 mg/dL (75-99)
--- NOTE | 2021-03-30 14:29 | PN ---
PROGRESS NOTE DATE OF SERVICE: 03/30/2021 REASON FOR FOLLOWUP: Aspiration pneumonia. INTERVAL HISTORY: The patient is currently afebrile. The patient is breathing comfortably on room air. The patient is hemodynamically stable. No vomiting, diarrhea or any other changes reported by the nursing staff. PHYSICAL EXAMINATION: Blood pressure 155/92. Pulse 89. Temperature 98.5. He is 93% on room air. General description is a middle aged male lying in bed in no distress. Respiratory system: Unlabored breathing, decreased intensity of breath sounds. No wheeze. Heart: S1, S2. Regular rate and rhythm. Abdomen soft, no tenderness. LABS: No new labs have been obtained today. DIAGNOSTIC IMPRESSION AND PLAN: Patient with recurrent aspiration pneumonia in this patient currently afebrile. White count normal. Culture negative. On Zosyn to continue for another five days to finish course of therapy. Continue supportive care. MMODL / IJN: [id number] /
[2021-03-30 16:47] LABS: Glucose,Whole Blood 125 mg/dL (75-99)
[2021-03-30] MEDS: SODIUM CHLORIDE 0.9% 1,000 ML IV SCH (20:42)
[2021-03-30] MEDS: levETIRAcetam IV 500 MG in SODIUM CHLORIDE 0.9% 100 ML IVPB SCH (22:51)
[2021-03-30] MEDS: FAMOTIDINE 20 MG TAB PEG/G-TUBE SCH (22:52)
[2021-03-31] MEDS: PIPERACILLIN-TAZOBACTAM 3.375 GM in SODIUM CHLORIDE 0.9% 100 ML IVPB SCH ×3 (00:03→15:33)
[2021-03-31 00:04] LABS: Glucose,Whole Blood 108 mg/dL (75-99)
[2021-03-31] MEDS: SODIUM CHLORIDE 0.9% 1,000 ML IV SCH (00:20)
[2021-03-31 05:48] LABS: Glucose,Whole Blood 110 mg/dL (75-99)
[2021-03-31] MEDS: OXYBUTYNIN CHLORIDE 5 MG TAB PEG/G-TUBE SCH ×3 (06:32→21:44)
[2021-03-31] MEDS: BACLOFEN 10 MG TAB PEG/G-TUBE SCH ×2 (06:33→15:32)
[2021-03-31] MEDS: IPRATROPIUM-ALBUTEROL 3 ML NEB INHALATION PRN ×3 (07:13→17:08)
--- NOTE | 2021-03-31 09:35 | P.PN ---
Subjective Progress Note Date: 03/30/21 Patient was seen by Dr. Jamison Hawkins for neurology consultation on 03/24/2021 and also followed up on 03/25/2021 and was signed off. Patient's sister wanted to discuss about Keppra, as she wants him to go off Keppra. Patient has history of advanced multiple sclerosis, severe dementia, nonverbal state, medically intractable epilepsy. Patient also has dysphagia, PEG placement, trigeminal neuralgia hypertension, urinary incontinence. Patient admitted for possible aspiration pneumonia on 03/23/2021. Patient's home medications includes Tegretol 200 mg twice a day, Vimpat 150 mg twice a day baclofen 10 mg 3 times a day aspirin 81 mg and amantadine 100 mg daily. Patient was started on Keppra 1000 mg twice a day by Dr. Jamison Hawkins, as patient was apparently discharged on Keppra 1000 mg twice a day on the last admission. No seizures have been reported by the nurse and patient did not have any seizure on presentation. Objective - Vital Signs Vital signs: Vital Signs Temp 98.0 F 03/30/21 13:51 Pulse 83 03/30/21 13:51 Resp 20 03/30/21 13:51 BP 134/80 03/30/21 13:51 Pulse Ox 95 03/30/21 13:51 Intake & Output 03/29/21 03/30/21 03/30/21 18:59 06:59 18:59 Intake Total 1605 75 950 Output Total 2495 2301 1999 Balance -898 -2226 -1050 Weight 74.5 kg 77 kg Intake: Intake, IV Titration 975 950 Amount Piperacillin-Tazobactam 3 200 100 .375 gm In Sodium Chloride 0.9% 100 ml @ 25 mls/hr IVPB Q8HR [facility] Rx# :[id number] Sodium Chloride 0.9% 1, 675 750 000 ml @ 75 mls/hr IV . [id number] [facility] Rx#:[id number] levETIRAcetam IV 1,000 mg 100 100 In Saline 1 100ml.bag @ 400 mls/hr IVPB Q12HR [facility] Rx#:[id number] Oral 0 Tube Feeding 630 75 Output: Urine 2495 2300 1999 Uretheral (Stein) 1170 960 9048 Stool 1 Other: Voiding Method Indwelling Catheter Indwelling Catheter Indwelling Catheter - Exam GENERAL: The patient is lying in bed and is not in acute distress. Patient is alert and awake. NEUROLOGICAL: Higher mental function: The patient is alert and awake. Not following commands. The patient is and is nonverbal (baseline). Cranial nerves: The pupils are round, equal and reactive. Visual prater: could not assess because of his condition. Patient has obvious right MACROS. Patient does track. No facial weakness. Moving his head side to side tracking me throughout the room. Rest of the cranial nerves could not be assessed because of his condition.. Motor: Is bed bound. The strength is spastic in all 4 extremities. Slightly less over the left upper extremity (decrased tone over the left wrist). Cerebellum: Could not be assessed. Sensation: Could not be assessed. Reflexes (right/left): 3+ Plantars are upgoing bilaterally. - Labs CBC & Chem 7: 03/29/21 07:17 03/29/21 07:17 Labs: Abnormal Lab Results - Last 24 Hours (Table) 03/30/21 03/30/21 Range/Units 05:47 16:44 POC Glucose (mg/dL) 110 H 125 H (75-99) mg/dL Microbiology - Last 24 Hours (Table) 03/24/21 01:00 Blood Culture - Final Blood No Growth after 144 hours 03/24/21 01:15 Blood Culture - Final Blood No Growth after 144 hours 03/24/21 21:36 Blood Culture - Preliminary Blood No Growth after 120 hours Assessment and Plan Assessment: Altered mental status due to septic encephalopathy (likely aspiration pneumonia--mentation is baseline) Severe multiple sclerosis who is bedridden History of the localized related epilepsy. No seizures reported on admission or since arrival to the hospital. Nonverbal baseline severe dementia Dysphagia status post PEG Reported trigeminal neuralgia Hypertension Urinary incontinence Plan: Spoke to patient's sister on the phone. She wants patient to be of Keppra. We will decrease Keppra down to 500 mg twice a day from tonight and stop it on 04/01/2021, as per patient's sister request. Please call neurology if there is any other further concerns. Continue Tegretol 200 mg 1 tablet twice a day, Vimpat 150 mg 1 tablet twice a day. We'll defer the rest of the medical management to the pulmonary and the primary team.
[2021-03-31] MEDS: LACTULOSE 20 GM/30 ML CUP PEG/G-TUBE SCH ×2 (10:11→21:44)
[2021-03-31] MEDS: ASPIRIN 81 MG PEG/G-TUBE SCH (10:11)
[2021-03-31] MEDS: HEPARIN SODIUM,PORCINE/PF 5,000 UNIT/0.5 ML SYRINGE SQ SCH ×2 (10:22→21:43)
[2021-03-31] MEDS: LACOSAMIDE 150 MG TABLET PEG/G-TUBE SCH ×2 (10:22→21:44)
[2021-03-31] MEDS: DOCUSATE ORAL SOLN 100 MG/10 ML CUP PEG/G-TUBE SCH ×2 (10:22→21:44)
[2021-03-31] MEDS: levETIRAcetam IV 500 MG in SODIUM CHLORIDE 0.9% 100 ML IVPB SCH ×2 (10:22→21:43)
[2021-03-31] MEDS: METOPROLOL TARTRATE 25 MG TAB PEG/G-TUBE SCH ×2 (10:23→21:44)
[2021-03-31] MEDS: NON FORMULARY DRUG (Cranberry Fruit Extract [Cranberry] 500 MG Tablet) PEG/G-TUBE SCH (10:23)
[2021-03-31] MEDS: CHOLECALCIFEROL 25 MCG (1000 IU) TABLET PEG/G-TUBE SCH (10:23)
[2021-03-31] MEDS: carBAMazepine 200 MG TAB PEG/G-TUBE SCH ×2 (11:06→21:44)
[2021-03-31 11:46] LABS: Anisocytosis Slight; Basophils % (A) 1 %; Eosinophils # (A) 0.4 k/uL (0-0.7); Eosinophils % (A) 6 %; HGB 11.4 gm/dL (13.0-17.5); Hypochromasia Moderate; Lymphocytes % (A) 17 %; MCH 26.2 pg (25.0-35.0); MCHC 30.7 g/dL (31.0-37.0); MCV 85.2 fL (80.0-100.0); Mean Platelet Volume 7.4; Monocytes # (A) 0.4 k/uL (0-1.0); Monocytes % (A) 6 %; Neutrophils % (A) 67 %; Platelet Count 396 k/uL (150-450); RBC 4.34 m/uL (4.30-5.90); RDW 16.7 % (11.5-15.5)
[2021-03-31 11:54] LABS: Glucose,Whole Blood 103 mg/dL (75-99)
[2021-03-31 11:59] LABS: African American GFR (CKD) >90 (>60 ml/min/1.73 sqM); Anion Gap 8 mmol/L; Blood Urea Nitrogen 21 mg/dL (9-20); Calcium 9.1 mg/dL (8.4-10.2); Carbon Dioxide 24 mmol/L (22-30); Chloride 108 mmol/L (98-107); Glucose 109 mg/dL (74-99); Non-African American GFR(CKD) >90 (>60 ml/min/1.73 sqM); Potassium 4.4 mmol/L (3.5-5.1); Sodium 140 mmol/L (137-145)
[2021-03-31 16:58] LABS: Glucose,Whole Blood 97 mg/dL (75-99)
--- NOTE | 2021-03-31 19:28 | PN ---
PROGRESS NOTE DATE OF SERVICE: 03/31/2021 REASON FOR FOLLOWUP: Aspiration pneumonia. INTERVAL HISTORY: Patient is currently afebrile. The patient is hemodynamically stable. The patient is slightly more awake and alert today, however, he is not a very good historian. No vomiting, diarrhea or other change reported by nursing staff. PHYSICAL EXAMINATION: Blood pressure is 127/82 with a pulse of 83, temperature 98.6, she is 97% on room air. General description is a middle-aged male lying in in no distress. Respiratory system: Unlabored breathing, decreased breath sounds, no wheeze. Heart: S1, S2. Regular rate and rhythm. Abdomen soft, no tenderness. LABS: No new labs have been obtained today. DIAGNOSTIC IMPRESSION AND PLAN: Patient with aspiration pneumonia. Blood culture has been negative. Sputum could not collected. Overall response to the Zosyn, to continue to finish a course of therapy and monitor clinical course closely. MMODL / IJN: [id number] /
[2021-03-31] MEDS: FAMOTIDINE 20 MG TAB PEG/G-TUBE SCH (21:44)
[2021-04-01] MEDS: PIPERACILLIN-TAZOBACTAM 3.375 GM in SODIUM CHLORIDE 0.9% 100 ML IVPB SCH ×2 (00:28→10:01)
[2021-04-01 00:55] LABS: Glucose,Whole Blood 100 mg/dL (75-99)
[2021-04-01 01:13] VITALS: RESP 18
[2021-04-01 06:14] LABS: Glucose,Whole Blood 107 mg/dL (75-99)
[2021-04-01] MEDS: BACLOFEN 10 MG TAB PEG/G-TUBE SCH ×3 (07:55→15:40)
[2021-04-01] MEDS: OXYBUTYNIN CHLORIDE 5 MG TAB PEG/G-TUBE SCH ×2 (07:55→15:40)
[2021-04-01] MEDS: IPRATROPIUM-ALBUTEROL 3 ML NEB INHALATION PRN ×2 (08:35→12:18)
[2021-04-01] MEDS: ACETAMINOPHEN ORAL SUSP (PEDS) 3,840 MG/120 ML BOTTLE PEG/G-TUBE PRN (10:03)
[2021-04-01] MEDS: LACTULOSE 20 GM/30 ML CUP PEG/G-TUBE SCH (10:03)
[2021-04-01] MEDS: DOCUSATE ORAL SOLN 100 MG/10 ML CUP PEG/G-TUBE SCH (10:04)
[2021-04-01] MEDS: HEPARIN SODIUM,PORCINE/PF 5,000 UNIT/0.5 ML SYRINGE SQ SCH (10:04)
[2021-04-01] MEDS: METOPROLOL TARTRATE 25 MG TAB PEG/G-TUBE SCH (10:05)
[2021-04-01] MEDS: ASPIRIN 81 MG PEG/G-TUBE SCH (10:05)
[2021-04-01] MEDS: NON FORMULARY DRUG (Cranberry Fruit Extract [Cranberry] 500 MG Tablet) PEG/G-TUBE SCH (10:06)
[2021-04-01] MEDS: CHOLECALCIFEROL 25 MCG (1000 IU) TABLET PEG/G-TUBE SCH (10:06)
[2021-04-01] MEDS: LACOSAMIDE 150 MG TABLET PEG/G-TUBE SCH (10:06)
[2021-04-01] MEDS: carBAMazepine 200 MG TAB PEG/G-TUBE SCH (10:07)
--- NOTE | 2021-04-01 10:09 | P.PN ---
Subjective Progress Note Date: 03/29/21 Principal diagnosis: Severe sepsis Acute respiratory failure/aspiration pneumonia Elevated troponin/ possible demand ischemia due to severe sepsis Moderate protein calorie malnutrition Severe multiple sclerosis 60-year-old male had multiple hospitalizations because of aspiration. Patient does have a PEG tube in place. Patient came in septic again did aspirate again was vomiting at the [facility]. Patient has advanced multiple sclerosis with contractures usually nonverbal. Patient is cachectic debilitated remains full code because of the insistence from sister. Patient had history of Pseudomonas ESBL and enterococcal infections along with MRSA in the past. Patient is presently being treated for aspiration pneumonia again with multiple antibiotics including ceftriaxone, metronidazole and azithromycin multiple consultants including infectious disease is following the patient patient is severely septic patient also had a mildly elevated troponin because of his cardiology is following the patient although troponin elevation is probably secondary to sepsis. Patient has a stage II decubitus ulcer in the sacral area as well as heel for which a wound care is following the patient. 03/27/2021 Patient is seen and evaluated with family members at bedside; patient is breathing comfortably Vital signs are reviewed and stable with a temperature of 98.5, pulse 94, blood pressure 138/83 with SpO2 of 98% on 2 L Labs are reviewed and reveal WBC 6.8, hemoglobin 10.4, hematocrit 32.6 and platelet count of 288, sodium 140, potassium 4.2, BUN/creatinine of 16/0.43 Patient is admitted with possible aspiration pneumonia and is being treated with IV Zosyn; patient has been pancultured and results are pending 03/28/2021 Patient is lying in the bed comfortable. Patient has been afebrile overnight. Currently being continued on antibiotics in the form of Zosyn for aspiration pneumonia. ID recommended to continue for 7-10 days. Tolerating her tube feeding. Complete review of systems could not be obtained from the patient. Laboratory data reviewed. Current medications reviewed. Objective - Vital Signs Vital signs: Vital Signs Temp 98.9 F 03/29/21 19:50 Pulse 80 03/29/21 20:55 Resp 18 03/29/21 19:50 BP 136/81 03/29/21 19:50 Pulse Ox 97 03/29/21 19:50 Intake & Output 03/29/21 03/29/21 03/30/21 06:59 18:59 06:59 Intake Total 1605 Output Total 2800 2495 1300 Balance -2800 -890 -1300 Weight 74.5 kg 74.5 kg Intake: Intake, IV Titration 975 Amount Piperacillin-Tazobactam 3 200 .375 gm In Sodium Chloride 0.9% 100 ml @ 25 mls/hr IVPB Q8HR [facility] Rx# :[id number] Sodium Chloride 0.9% 1, 675 000 ml @ 75 mls/hr IV . [id number] [facility] Rx#:[id number] levETIRAcetam IV 1,000 mg 100 In Saline 1 100ml.bag @ 400 mls/hr IVPB Q12HR [facility] Rx#:[id number] Oral 0 Tube Feeding 630 Output: Urine 2800 2495 1300 Uretheral (Tsein) 1980 1020 700 Other: Voiding Method Indwelling Catheter Indwelling Catheter Indwelling Catheter - Exam GENERAL: Non-verbal thin built cachectic with contractors . non verbal HEENT: Pupils are round and equally reacting to light. EOMI. No scleral icterus. No conjunctival pallor. Normocephalic, atraumatic. No pharyngeal erythema. No thyromegaly. CARDIOVASCULAR: S1 and S2 present. No murmurs, rubs, or gallops. PULMONARY: Chest is clear to auscultation, no wheezing or crackles. ABDOMEN: Soft, nontender, PEG tube in place.PEG tube site looks okay MUSCULOSKELETAL: No joint swelling or deformity. EXTREMITIES: No cyanosis, clubbing, or pedal edema. NEUROLOGICAL: Patient does have contractures and chronic weakness thin built significant muscle atrophy in all 4 limbs as well as chest wall as well as abdominal wall muscle atrophy. SKIN: Stage II decubitus ulcers - Labs CBC & Chem 7: 03/31/21 10:50 03/31/21 10:50 Labs: Abnormal Lab Results - Last 24 Hours (Table) 03/28/21 03/29/21 03/29/21 Range/Units 23:56 06:12 07:17 RBC 3.93 L (4.30-5.90) m/uL Hgb 10.4 L (13.0-17.5) gm/dL Hct 32.7 L (39.0-53.0) % RDW 16.2 H (11.5-15.5) % Creatinine (0.66-1.25) mg/dL Glucose (74-99) mg/dL POC Glucose (mg/dL) 118 H 121 H (75-99) mg/dL 03/29/21 03/29/21 03/29/21 Range/Units 07:17 11:53 16:42 RBC (4.30-5.90) m/uL Hgb (13.0-17.5) gm/dL Hct (39.0-53.0) % RDW (11.5-15.5) % Creatinine 0.54 L (0.66-1.25) mg/dL Glucose 112 H (74-99) mg/dL POC Glucose (mg/dL) 106 H 114 H (75-99) mg/dL Microbiology - Last 24 Hours (Table) 03/24/21 01:00 Blood Culture - Preliminary Blood No Growth after 120 hours 03/24/21 01:15 Blood Culture - Preliminary Blood No Growth after 120 hours 03/24/21 21:36 Blood Culture - Preliminary Blood No Growth after 96 hours Assessment and Plan Assessment: -Severe sepsis: Secondary to aspiration pneumonia there may be a competent of chemical pneumonitis. Patient will be continued on Zosyn, his overall prognosi s is extremely poor. Patient remains a full code at this time. Rest of the workup for sepsis is so far negative. -Troponin elevation secondary to severe sepsis/ demand ischemia -Moderate protein calorie malnutrition patient is on PEG tube feedings to resume -Severe multiple sclerosis with contractures. -Neurogenic bladder with multiple urinary tract infections in the past -Decubitus ulcer for which patient will undergo local wound care -Gastroesophageal reflux disease -Seizure disorder -Hypertension -History of DVT in the past -Chronic medical debility -DVT prophylaxis: Subcutaneous heparin
--- NOTE | 2021-04-01 10:12 | P.PN ---
Subjective Progress Note Date: 03/30/21 Principal diagnosis: Severe sepsis Acute respiratory failure/aspiration pneumonia Elevated troponin/ possible demand ischemia due to severe sepsis Moderate protein calorie malnutrition Severe multiple sclerosis 60-year-old male had multiple hospitalizations because of aspiration. Patient does have a PEG tube in place. Patient came in septic again [facility] Patient has advanced multiple sclerosis with contractures usually nonverbal. Patient is cachectic debilitated remains full code because of the insistence from sister. Patient had history of Pseudomonas ESBL and enterococcal infections along with MRSA in the past. Patient is presently being treated for aspiration pneumonia again with multiple antibiotics including ceftriaxone, metronidazole and azithromycin multiple consultants including infectious disease is following the patient patient is severely septic patient also had a mildly elevated troponin because of his cardiology is following the patient although troponin elevation is probably secondary to sepsis. Patient has a stage II decubitus ulcer in the sacral area as well as heel for which a wound care is following the patient. 03/27/2021 Patient is seen and evaluated with family members at bedside; patient is breathing comfortably Vital signs are reviewed and stable with a temperature of 98.5, pulse 94, blood pressure 138/83 with SpO2 of 98% on 2 L Labs are reviewed and reveal WBC 6.8, hemoglobin 10.4, hematocrit 32.6 and platelet count of 288, sodium 140, potassium 4.2, BUN/creatinine of 16/0.43 Patient is admitted with possible aspiration pneumonia and is being treated with IV Zosyn; patient has been pancultured and results are pending 03/28/2021 Patient is lying in the bed comfortable. Patient has been afebrile overnight. Currently being continued on antibiotics in the form of Zosyn for aspiration pneumonia. ID recommended to continue for 7-10 days. Tolerating her tube feeding. Complete review of systems could not be obtained from the patient. Laboratory data reviewed. 03/29/2021 Patient is nonverbal and is comfortable in bed. Today morning could not get residual out PEG tube. PEG tube feeding tube pump is being replaced. Patient's sister does not want To be continued which was started during last admission. Neurology was consulted and recommended tapering dose of Keppra and discontinue by Sunday. Otherwise patient has been afebrile. Continued on antibiotics the form of Zosyn. Neurology and ID is on board. Current medications reviewed. Objective - Vital Signs Vital signs: Vital Signs Temp 98.4 F 03/30/21 20:00 Pulse 81 03/30/21 20:00 Resp 16 03/30/21 20:00 BP 138/85 03/30/21 20:00 Pulse Ox 97 03/30/21 20:00 Intake & Output 03/30/21 03/30/21 03/31/21 06:59 18:59 06:59 Intake Total 75 950 Output Total 2301 2000 Balance -2226 -1050 Weight 77 kg Intake: Intake, IV Titration 950 Amount Piperacillin-Tazobactam 3 100 .375 gm In Sodium Chloride 0.9% 100 ml @ 25 mls/hr IVPB Q8HR [facility] Rx# :[id number] Sodium Chloride 0.9% 1, 750 000 ml @ 75 mls/hr IV . [id number] [facility] Rx#:[id number] levETIRAcetam IV 1,000 mg 100 In Saline 1 100ml.bag @ 400 mls/hr IVPB Q12HR [facility] Rx#:[id number] Tube Feeding 75 Output: Urine 2300 2000 Uretheral (Stein) 700 2000 Stool 1 Other: Voiding Method Indwelling Catheter Indwelling Catheter - Exam GENERAL: Non-verbal thin built cachectic with contractors . non verbal HEENT: Pupils are round and equally reacting to light. EOMI. No scleral icterus. No conjunctival pallor. Normocephalic, atraumatic. No pharyngeal erythema. No thyromegaly. CARDIOVASCULAR: S1 and S2 present. No murmurs, rubs, or gallops. PULMONARY: Chest is clear to auscultation, no wheezing or crackles. ABDOMEN: Soft, nontender, PEG tube in place.PEG tube site looks okay MUSCULOSKELETAL: No joint swelling or deformity. EXTREMITIES: No cyanosis, clubbing, or pedal edema. NEUROLOGICAL: Patient does have contractures and chronic weakness thin built significant muscle atrophy in all 4 limbs as well as chest wall as well as a bdominal wall muscle atrophy. SKIN: Stage II decubitus ulcers - Labs CBC & Chem 7: 03/31/21 10:50 03/31/21 10:50 Labs: Abnormal Lab Results - Last 24 Hours (Table) 03/30/21 03/30/21 Range/Units 05:47 16:44 POC Glucose (mg/dL) 110 H 125 H (75-99) mg/dL Microbiology - Last 24 Hours (Table) 03/24/21 01:00 Blood Culture - Final Blood No Growth after 144 hours 03/24/21 01:15 Blood Culture - Final Blood No Growth after 144 hours 03/24/21 21:36 Blood Culture - Preliminary Blood No Growth after 120 hours Assessment and Plan Assessment: -Severe sepsis: Secondary to aspiration pneumonia there may be a competent of chemical pneumonitis. Patient will be continued on Zosyn, his overall prognosis is extremely poor. Patient remains a full code at this time. Rest of the workup for sepsis is so far negative. -Troponin elevation secondary to severe sepsis/ demand ischemia -Moderate protein calorie malnutrition patient is on PEG tube feedings to resume -Severe multiple sclerosis with contractures. -Neurogenic bladder with multiple urinary tract infections in the past -Decubitus ulcer for which patient will undergo local wound care -Gastroesophageal reflux disease -Seizure disorder. Patient's sister does not want Keppra to be continued.. Tapering off currently. Continue with Tegretol and Vimpat. -Hypertension -History of DVT in the past -Chronic medical debility -DVT prophylaxis: Subcutaneous heparin
--- NOTE | 2021-04-01 10:15 | P.PN ---
Subjective Progress Note Date: 03/31/21 Principal diagnosis: Severe sepsis Acute respiratory failure/aspiration pneumonia Elevated troponin/ possible demand ischemia due to severe sepsis Moderate protein calorie malnutrition Severe multiple sclerosis 60-year-old male had multiple hospitalizations because of aspiration. Patient does have a PEG tube in place. Patient came in septic again [facility] Patient has advanced multiple sclerosis with contractures usually nonverbal. Patient is cachectic debilitated remains full code because of the insistence from sister. Patient had history of Pseudomonas ESBL and enterococcal infections along with MRSA in the past. Patient is presently being treated for aspiration pneumonia again with multiple antibiotics including ceftriaxone, metronidazole and azithromycin multiple consultants including infectious disease is following the patient patient is severely septic patient also had a mildly elevated troponin because of his cardiology is following the patient although troponin elevation is probably secondary to sepsis. Patient has a stage II decubitus ulcer in the sacral area as well as heel for which a wound care is following the patient. 03/27/2021 Patient is seen and evaluated with family members at bedside; patient is breathing comfortably Vital signs are reviewed and stable with a temperature of 98.5, pulse 94, blood pressure 138/83 with SpO2 of 98% on 2 L Labs are reviewed and reveal WBC 6.8, hemoglobin 10.4, hematocrit 32.6 and platelet count of 288, sodium 140, potassium 4.2, BUN/creatinine of 16/0.43 Patient is admitted with possible aspiration pneumonia and is being treated with IV Zosyn; patient has been pancultured and results are pending 03/28/2021 Patient is lying in the bed comfortable. Patient has been afebrile overnight. Currently being continued on antibiotics in the form of Zosyn for aspiration pneumonia. ID recommended to continue for 7-10 days. Tolerating her tube feeding. Complete review of systems could not be obtained from the patient. Laboratory data reviewed. 03/29/2021 Patient is nonverbal and is comfortable in bed. Today morning could not get residual out PEG tube. PEG tube feeding tube pump is being replaced. Patient's sister does not want To be continued which was started during last admission. Neurology was consulted and recommended tapering dose of Keppra and discontinue by Sunday. Otherwise patient has been afebrile. Continued on antibiotics the form of Zosyn. Neurology and ID is on board. 03/31/2021 Patient is currently lying in the bed. Nonverbal but appears to be comfortable. Tolerating PEG tube feeding. Continue with antibiotics in the form of Zosyn. Keppra is being tapered off as per his sister's request. Neurology is on board. We will stop Her tomorrow. Patient has been afebrile. Laboratory data reviewed. Anticipate discharge next 24 hours. Current medications reviewed. Objective - Vital Signs Vital signs: Vital Signs Temp 98.2 F 03/31/21 18:59 Pulse 88 03/31/21 19:32 Resp 14 03/31/21 19:32 BP 141/89 03/31/21 18:59 Pulse Ox 94 L 03/31/21 18:59 Intake & Output 03/31/21 03/31/21 04/01/21 06:59 18:59 06:59 Intake Total 2215 1350 1160 Output Total 3901 1100 1 Balance -7185 336 8599 Weight 78.5 kg 78.5 kg Intake: Intake, IV Titration 900 300 200 Amount Piperacillin-Tazobactam 3 200 100 .375 gm In Sodium Chloride 0.9% 100 ml @ 25 mls/hr IVPB Q8HR [facility] Rx# :[id number] Sodium Chloride 0.9% 1, 900 000 ml @ 75 mls/hr IV . [id number] [facility] Rx#:[id number] levETIRAcetam IV 500 mg 100 100 In Sodium Chloride 0.9% 100 ml @ 400 mls/hr IVPB Q12HR [facility] Rx#:[id number] Oral 0 Tube Feeding 1198 960 960 Other 117 90 Output: Urine 3900 1100 Uretheral (Stein) 1800 Stool 1 1 Other: Voiding Method Indwelling Catheter Indwelling Catheter Indwelling Catheter - Exam GENERAL: Non-verbal thin built cachectic with contractors . non verbal HEENT: Pupils are round and equally reacting to light. EOMI. No scleral icterus. No conjunctival pallor. Normocephalic, atraumatic. No pharyngeal erythema. No thyromegaly. CARDIOVASCULAR: S1 and S2 present. No murmurs, rubs, or gallops. PULMONARY: Chest is clear to auscultation, no wheezing or crackles. ABDOMEN: Soft, nontender, PEG tube in place.PEG tube site looks okay MUSCULOSKELETAL: No joint swelling or deformity. EXTREMITIES: No cyanosis, clubbing, or pedal edema. NEUROLOGICAL: Patient does have contractures and chronic weakness thin built significant muscle atrophy in all 4 limbs as well as chest wall as well as abdominal wall muscle atrophy. SKIN: Stage II decubitus ulcers - Labs CBC & Chem 7: 03/31/21 10:50 03/31/21 10:50 Labs: Abnormal Lab Results - Last 24 Hours (Table) 03/31/21 03/31/21 03/31/21 Range/Units 00:02 05:46 10:50 Hgb 11.4 L (13.0-17.5) gm/dL Hct 37.0 L (39.0-53.0) % MCHC 30.7 L (31.0-37.0) g/dL RDW 16.7 H (11.5-15.5) % Chloride (98-107) mmol/L BUN (9-20) mg/dL Creatinine (0.66-1.25) mg/dL Glucose (74-99) mg/dL POC Glucose (mg/dL) 108 H 110 H (75-99) mg/dL 03/31/21 03/31/21 Range/Units 10:50 11:52 Hgb (13.0-17.5) gm/dL Hct (39.0-53.0) % MCHC (31.0-37.0) g/dL RDW (11.5-15.5) % Chloride 108 H (98-107) mmol/L BUN 21 H (9-20) mg/dL Creatinine 0.57 L (0.66-1.25) mg/dL Glucose 109 H (74-99) mg/dL POC Glucose (mg/dL) 103 H (75-99) mg/dL Microbiology - Last 24 Hours (Table) 03/24/21 21:36 Blood Culture - Final Blood No Growth after 144 hours Assessment and Plan Assessment: -Severe sepsis: Secondary to aspiration pneumonia there may be a competent of chemical pneumonitis. Patient will be continued on Zosyn, his overall prognosis is extremely poor. Patient remains a full code at this time. Rest of the workup for sepsis is so far negative. -Troponin elevation secondary to severe sepsis/ demand ischemia -Moderate protein calorie malnutrition patient is on PEG tube feedings to resume -Severe multiple sclerosis with contractures. -Neurogenic bladder with multiple urinary tract infections in the past -Decubitus ulcer for which patient will undergo local wound care -Gastroesophageal reflux disease -Seizure disorder. Patient's sister does not want Keppra to be continued.. Tapering off currently. Continue with Tegretol and Vimpat. -Hypertension -History of DVT in the past -Chronic medical debility -DVT prophylaxis: Subcutaneous heparin
[2021-04-01 11:46] LABS: Glucose,Whole Blood 120 mg/dL (75-99)
--- NOTE | 2021-04-01 14:10 | P.DS ---
Providers Date of admission: 03/25/21 09:10 Expected date of discharge: 04/01/21 Attending physician: Judi Caery Consults: 03/24/21 08:53 Consult Physician Stat Consulting Provider: Royal Kumar Consult Reason/Comments: aspiration pneumonia Do you want consulting provider notified?: Yes 03/24/21 08:55 Consult Physician Stat Consulting Provider: Milagros Wilcox Consult Reason/Comments: elevated troponin Do you want consulting provider notified?: Yes 03/24/21 11:02 Consult Physician Routine Consulting Provider: Sonal Farah Consult Reason/Comments: Multiple wounds, infection, fever Do you want consulting provider notified?: Yes 03/24/21 11:03 Consult Physician Routine Consulting Provider: Jamison Hawkins Consult Reason/Comments: AMS Do you want consulting provider notified?: Yes Primary care physician: Matteo Hernandez [facility] Course: Discharge Dignosis -Severe sepsis: Secondary to aspiration pneumonia there may be a competent of chemical pneumonitis. Patient will be continued on Zosyn for 5 more day, his overall prognosis is extremely poor. Patient remains a full code at this time. Rest of the workup for sepsis is so far negative. blood cultures negative. sputum cx couyld not be obained. -Troponin elevation secondary to severe sepsis/ demand ischemia -Moderate protein calorie malnutrition patient is on PEG tube feedings to resume -Severe multiple sclerosis with contractures. -Neurogenic bladder with multiple urinary tract infections in the past -Decubitus ulcer for which patient will undergo local wound care -Gastroesophageal reflux disease -Seizure disorder. Patient's sister does not want Keppra to be continued.. Tapering off currently. Continue with Tegretol and Vimpat. -Hypertension -History of DVT in the past -Chronic medical debility -DVT prophylaxis: Subcutaneous heparin Hospital course 60-year-old male had multiple hospitalizations because of aspiration. Patient does have a PEG tube in place. Patient came in septic again did aspirate again was vomiting at the [facility]. Patient has advanced multiple sclerosis with contractures usually nonverbal. Patient is cachectic debilitated remains full code because of the insistence from sister. Patient had history of Pseudomonas ESBL and enterococcal infections along with MRSA in the past. Patient is presently being treated for aspiration pneumonia again with multiple antibiotics including ceftriaxone, metronidazole and azithromycin multiple consultants including infectious disease is following the patient patient is severely septic patient also had a mildly elevated troponin because of his cardiology is following the patient although troponin elevation is probably secondary to sepsis. Patient has a stage II decubitus ulcer in the sacral area as well as heel for which a wound care is following the patient. 03/27/2021 Patient is seen and evaluated with family members at bedside; patient is breat mp comfortably Vital signs are reviewed and stable with a temperature of 98.5, pulse 94, blood pressure 138/83 with SpO2 of 98% on 2 L Labs are reviewed and reveal WBC 6.8, hemoglobin 10.4, hematocrit 32.6 and platelet count of 288, sodium 140, potassium 4.2, BUN/creatinine of 16/0.43 Patient is admitted with possible aspiration pneumonia and is being treated with IV Zosyn; patient has been pancultured and results are pending 03/28/2021 Patient is lying in the bed comfortable. Patient has been afebrile overnight. Currently being continued on antibiotics in the form of Zosyn for aspiration pneumonia. ID recommended to continue for 7-10 days. Tolerating her tube feeding. Complete review of systems could not be obtained from the patient. Laboratory data reviewed. 03/29/2021 Patient is nonverbal and is comfortable in bed. Today morning could not get residual out PEG tube. PEG tube feeding tube pump is being replaced. Patient's sister does not want To be continued which was started during last admission. Neurology was consulted and recommended tapering dose of Keppra and discontinue by Sunday. Otherwise patient has been afebrile. Continued on antibiotics the form of Zosyn. Neurology and ID is on board. 03/31/2021 Patient is currently lying in the bed. Nonverbal but appears to be comfortable. Tolerating PEG tube feeding. Continue with antibiotics in the form of Zosyn. Keppra is being tapered off as per his sister's request. Neurology is on board. We will stop Her tomorrow. Patient has been afebrile. Laboratory data reviewed. Anticipate discharge next 24 hours. 04/01/2021 Patient is currently lying in the bed comfortably. Able to open his eyes but does not follow commands. Mental status is at baseline. Tolerating PEG tube feeding. Patient has been afebrile and no leukocytosis. Continue with antibiotic course with Zosyn and other 5 days. ID has seen the patient. Keppra has been discontinued and patient will be continued on Tegretol and Vimpat. Patient is cleared from neurology standpoint. Patient will be discharged to home to complete antibiotic course. No other acute overnight issues. Physical Examination GENERAL: Non-verbal thin built cachectic with contractors . non verbal HEENT: Pupils are round and equally reacting to light. EOMI. No scleral icterus. No conjunctival pallor. Normocephalic, atraumatic. No pharyngeal erythema. No thyromegaly. CARDIOVASCULAR: S1 and S2 present. No murmurs, rubs, or gallops. PULMONARY: Chest is clear to auscultation, no wheezing or crackles. ABDOMEN: Soft, nontender, PEG tube in place.PEG tube site looks okay MUSCULOSKELETAL: No joint swelling or deformity. EXTREMITIES: No cyanosis, clubbing, or pedal edema. NEUROLOGICAL: Patient does have contractures and chronic weakness thin built significant muscle atrophy in all 4 limbs as well as chest wall as well as abdominal wall muscle atrophy. SKIN: Stage II decubitus ulcers Vital Signs 04/01/21 04/01/21 04/01/21 07:33 08:37 08:47 Temperature 98.6 F Pulse Rate 80 84 Pulse Rate [ 82 Pulse Oximetery ] Respiratory 18 Rate Blood Pressure 152/80 [Right Arm] O2 Sat by Pulse 95 Oximetry 04/01/21 04/01/21 12:19 12:27 Temperature Pulse Rate 82 86 Pulse Rate [ Pulse Oximetery ] Respiratory Rate Blood Pressure [Right Arm] O2 Sat by Pulse Oximetry time take > 35 min Patient Condition at Discharge: Fair Plan - Discharge Summary Discharge Rx Participant: No New Discharge Prescriptions: New Piperacillin-Tazobactam [Zosyn] 3.375 gm IVPB Q8HR 5 Days #15 vial Continue Cholecalciferol [Vitamin D3 (25 Mcg = 1000 Iu)] 1,000 unit PEG/G-TUBE DAILY@0900 Acetaminophen Oral Susp [Tylenol] 320 mg PEG/G-TUBE Q6H PRN PRN Reason: Fever And/ Or Pain Oxybutynin Chloride [Ditropan Oral Soln] 5 mg PEG/G-TUBE TID@0600,1400,2200 Ipratropium-Albuterol Nebulize [Duoneb 0.5 mg-3 mg/3 ml Soln] 3 ml INHALATION RT-Q6H PRN PRN Reason: Shortness Of Breath Baclofen [Lioresal] 10 mg PEG/G-TUBE TID@0600,1400,2200 carBAMazepine [TEGretol] 200 mg PEG/G-TUBE BID@899,2099 Scopolamine [Scopolamine 1 MG/72 HR patch] 1 patch TRANSDERM Q72H amantadine HCL [Amantadine] 100 mg PEG/G-TUBE DAILY@0900 Cranberry Fruit Extract [Cranberry] 500 mg PEG/G-TUBE DAILY@0900 Aspirin 81 mg PEG/G-TUBE DAILY@0900 Lactulose 20 gm PEG/G-TUBE BID@899,2099 Docusate Oral Soln [Colace Oral Soln] 100 mg PEG/G-TUBE BID@899,2099 0.9 % Sodium Chloride [Sodium Chloride Flush] 10 ml IV Q8H Metoprolol Tartrate [Lopressor] 75 mg PEG/G-TUBE BID@899,2099 Famotidine [Pepcid] 20 mg PEG/G-TUBE HS Magnesium Hydroxide [Milk of Magnesia Concentrate] 7,200 mg PEG/G-TUBE Q72H PRN PRN Reason: Constipation Lacosamide [Vimpat] 150 mg PEG/G-TUBE BID@899,2099 #6 tab guaiFENesin-DM 100-10MG/5ML [Robitussin DM] 10 ml PEG/G-TUBE Q6H PRN PRN Reason: Cough Discharge Medication List Cholecalciferol [Vitamin D3 (25 Mcg = 1000 Iu)] 1,000 unit PEG/G-TUBE DAILY@0900 12/28/17 [History] Acetaminophen Oral Susp [Tylenol] 320 mg PEG/G-TUBE Q6H PRN 01/26/19 [History] Oxybutynin Chloride [Ditropan Oral Soln] 5 mg PEG/G-TUBE TID@0600,1400,2200 06/19 [History] Ipratropium-Albuterol Nebulize [Duoneb 0.5 mg-3 mg/3 ml Soln] 3 ml INHALATION RT-Q6H PRN 12/16/19 [History] Baclofen [Lioresal] 10 mg PEG/G-TUBE TID@0600,1400,2200 07/16/20 [History] carBAMazepine [TEGretol] 200 mg PEG/G-TUBE BID@899,209907/30/20 [History] Scopolamine [Scopolamine 1 MG/72 HR patch] 1 patch TRANSDERM Q72H 09/07/20 [History] Aspirin 81 mg PEG/G-TUBE DAILY@89911/27/20 [History] Cranberry Fruit Extract [Cranberry] 500 mg PEG/G-TUBE DAILY@89911/27/20 [History] amantadine HCL [Amantadine] 100 mg PEG/G-TUBE DAILY@89911/27/20 [History] Docusate Oral Soln [Colace Oral Soln] 100 mg PEG/G-TUBE BID@899,209903/07/21 [History] Famotidine [Pepcid] 20 mg PEG/G-TUBE HS 03/07/21 [History] Lactulose 20 gm PEG/G-TUBE BID@09,209903/07/21 [History] Magnesium Hydroxide [Milk of Magnesia Concentrate] 7,200 mg PEG/G-TUBE Q72H PRN 03/07/21 [History] Metoprolol Tartrate [Lopressor] 75 mg PEG/G-TUBE BID@09,209903/07/21 [History] Lacosamide [Vimpat] 150 mg PEG/G-TUBE BID@899,2099 #6 tab 03/15/21 [Rx] 0.9 % Sodium Chloride [Sodium Chloride Flush] 10 ml IV Q8H 03/23/21 [History] guaiFENesin-DM 100-10MG/5ML [Robitussin DM] 10 ml PEG/G-TUBE Q6H PRN 03/23/21 [History] Piperacillin-Tazobactam [Zosyn] 3.375 gm IVPB Q8HR 5 Days #15 vial 04/01/21 [Rx] Follow up Appointment(s)/Referral(s): Matteo Hernandez MD [Primary Care Provider] - 1-2 days Discharge Disposition: TRANSFER TO SNF/ECF
[2021-04-01 15:31] VITALS: BP 129/78; PULSE 96; TEMP 98
--- NOTE | 2021-04-01 16:54 | PN ---
PROGRESS NOTE DATE OF SERVICE: 04/01/2021 REASON FOR FOLLOWUP: Aspiration pneumonia. INTERVAL HISTORY: The patient is currently afebrile. The patient is hemodynamically stable. He is breathing comfortably on room air. No vomiting, diarrhea, or other changes reported by nursing staff. PHYSICAL EXAMINATION: Blood pressure 152/80 with a pulse of 82, temperature 98.6. He is 95% on room air. General description is a middle-aged male up in the bed in no distress. Respiratory system: Unlabored breathing, some coarse breath sounds in the base. No wheeze. Heart S1, S2. Regular rate and rhythm. Abdomen soft, no tenderness. LABS: No new labs have been obtained today. DIAGNOSTIC IMPRESSION AND PLAN: Patient admitted to the hospital with an episode of aspiration concerning for aspiration pneumonia. Overall improvement on Zosyn to continue for another 5 days to finish a course of therapy. Continue supportive care. MMODL / IJN: [id number] /
== END 2021-04-01 16:53 | DRG 871 ==
LOC: EC 21:54 → 3SCARD 03-24 00:10 → OBSVTOIN 03-25 09:10 → 4SSUR 03-29 21:49
PROVIDERS: ADMIT Internal Medicine; ATTEND Internal Medicine
DX: A41.9 Sepsis, unspecified organism (principal); J69.0 Pneumonitis due to inhalation of food and vomit; J96.01 Acute respiratory failure with hypoxia; G93.41 Metabolic encephalopathy; I21.A1 Myocardial infarction type 2; Z16.24 Resistance to multiple antibiotics; Z16.12 Extended spectrum beta lactamase (ESBL) resistance; R64 Cachexia; J98.11 Atelectasis; E44.0 Moderate protein-calorie malnutrition; R65.20 Severe sepsis without septic shock; K21.9 Gastro-esophageal reflux disease without esophagitis; I10 Essential (primary) hypertension; G35 Multiple sclerosis; Z93.1 Gastrostomy status; Z74.01 Bed confinement status; R47.1 Dysarthria and anarthria; R41.89 Other symptoms and signs involving cognitive functions and awareness; R15.9 Full incontinence of feces; G50.0 Trigeminal neuralgia; L89.612 Pressure ulcer of right heel, stage 2; L89.152 Pressure ulcer of sacral region, stage 2; Z79.82 Long term (current) use of aspirin; Z79.899 Other long term (current) drug therapy; Z86.14 Personal history of Methicillin resistant Staphylococcus aureus infection; R13.10 Dysphagia, unspecified; F03.90 Unspecified dementia, unspecified severity, without behavioral disturbance, psychotic disturbance, mood disturbance, and anxiety; G40.909 Epilepsy, unspecified, not intractable, without status epilepticus; J98.4 Other disorders of lung; N31.9 Neuromuscular dysfunction of bladder, unspecified; Z87.01 Personal history of pneumonia (recurrent); Z87.440 Personal history of urinary (tract) infections; Z86.718 Personal history of other venous thrombosis and embolism; Z86.19 Personal history of other infectious and parasitic diseases; M24.59 Contracture, other specified joint; R53.81 Other malaise; F32.9 Major depressive disorder, single episode, unspecified
CPT/HCPCS: 36415; 71045; 80048; 80053; 81001; 82550; 83605; 83735; 83880; 84100; 84484; 85025; 85610; 85730; 87040; 87635; 93005; 94640; 94760; 96361; 96374; 96375; 99285

== ENCOUNTER 2021-04-21 14:46 | Emergency (ER) | payer MEDICARE, OTHER ==
[2021-04-21 14:54] VITALS: BP 150/88; PULSE 82; RESP 18; TEMP 98.9
--- NOTE | 2021-04-21 16:54 | ED ---
Recheck HPI - General Chief Complaint: Recheck/Abnormal Lab/Rx Stated Complaint: Peg tube replacement Time Seen by Provider: 04/21/21 15:12 Source: EMS, RN notes reviewed Mode of arrival: EMS Limitations: no limitations - History of Present Illness Initial Comments: Patient is a 60-year-old male that presents to the emergency room from [facility] for a clogged PEG tube. Patient is a nonverbal 60-year-old male with upper extremity contractures. Patient was accompanied by his who stated that she does not get the proper care at [facility]. She was otherwise well- appearing in no apparent distress or pain while sitting up in bed during the exam interview. - Related Data Home Medications Medication Instructions Recorded Confirmed Cholecalciferol [Vitamin D3 (25 1,000 unit PEG/G-TUBE DAILY@0900 12/28/17 03/23/21 Mcg = 1000 Iu)] Acetaminophen Oral Susp [Tylenol] 320 mg PEG/G-TUBE Q6H PRN 01/26/19 03/23/21 Oxybutynin Chloride [Ditropan Oral 5 mg PEG/G-TUBE TID@0600,1400,2200 09/08/19 03/23/21 Soln] Ipratropium-Albuterol Nebulize 3 ml INHALATION RT-Q6H PRN 12/16/19 03/23/21 [Duoneb 0.5 mg-3 mg/3 ml Soln] Baclofen [Lioresal] 10 mg PEG/G-TUBE TID@0600,1400,2200 07/16/20 03/23/21 carBAMazepine [TEGretol] 200 mg PEG/G-TUBE BID@0900,2100 07/30/20 03/23/21 Scopolamine [Scopolamine 1 MG/72 1 patch TRANSDERM Q72H 09/07/20 03/23/21 HR patch] Aspirin 81 mg PEG/G-TUBE DAILY@0900 11/27/20 03/23/21 Cranberry Fruit Extract [Cranberry] 500 mg PEG/G-TUBE DAILY@0900 11/27/20 03/23/21 amantadine HCL [Amantadine] 100 mg PEG/G-TUBE DAILY@0900 11/27/20 03/23/21 Docusate Oral Soln [Colace Oral 100 mg PEG/G-TUBE BID@0900,209903/07/21 03/23/21 Soln] Famotidine [Pepcid] 20 mg PEG/G-TUBE HS 03/07/21 03/23/21 Lactulose 20 gm PEG/G-TUBE BID@0900,209903/07/21 03/23/21 Magnesium Hydroxide [Milk of 7,200 mg PEG/G-TUBE Q72H PRN 03/07/21 03/23/21 Magnesia Concentrate] Metoprolol Tartrate [Lopressor] 75 mg PEG/G-TUBE BID@0900,209903/07/21 03/23/21 0.9 % Sodium Chloride [Sodium 10 ml IV Q8H 03/23/21 03/23/21 Chloride Flush] guaiFENesin-DM 100-10MG/5ML 10 ml PEG/G-TUBE Q6H PRN 03/23/21 03/23/21 [Robitussin DM] Previous Rx's Medication Instructions Recorded Lacosamide [Vimpat] 150 mg PEG/G-TUBE BID@00,2099 #6 03/15/21 tab Piperacillin-Tazobactam [Zosyn] 3.375 gm IVPB Q8HR 5 Days #15 vial 04/01/21 Allergies Allergy/AdvReac Type Severity Reaction Status Date / Time meropenem [From Merrem] Allergy Rash/Hives Verified 04/21/21 14:54 Review of Systems ROS Statement: Those systems with pertinent positive or pertinent negative responses have been documented in the HPI. ROS Other: All systems not noted in ROS Statement are negative. Past Medical History Past Medical History: Deep Vein Thrombosis (DVT), GERD/Reflux, Hypertension, Musculoskeletal Disorder, Neurologic Disorder, Pneumonia, Seizure Disorder, Skin Disorder Additional Past Medical History / Comment(s): Pt diagnosed with MS at the age of 39 yrs, eizure/pneumonia/UTI with sepsis/respirtory failure/vented, cognitive impairment, sister states when he is feeling well he could speak a few words/nod head appropriately/give thumbs up/roll eyes but when ill is nonverbal, pt has dysphagia/NPO with peg tube, contractures, last seizure 07/2020, trigeminal neuralgia, dysarthria/anarthria/neurogenic bladder with IDC-UTIs/sepsis, multiple pneumonias, recent seizure-last one 07/03/20, incontinent of stool, pt has had decubitus ulcer coccyx-sister unsure of skin condition at this time, past anemia r/t heparin/epistaxiis which involved nasal packing/transfusions, DVT bilateral arms, hypoxia, oxygen at 2L/NC, L femoral head fracture History of Any Multi-Drug Resistant Organisms: ESBL, MRSA Date of last positivie culture/infection: 03/09/21-MRSA; 11/23/19 ESBL-E.coli MDRO Source:: Abdomen-Peg site MRSA; Urine -ESBL Past Surgical History: Tonsillectomy Additional Past Surgical History / Comment(s): Gastrostomy, peg tube, I&D coccyx decubitius, bronchoscopy, bilateral lasik eye surgery. Past Anesthesia/Blood Transfusion Reactions: No Reported Reaction Additional Past Anesthesia/Blood Transfusion Reaction / Comment(s): Pt has received blood in past without reaction. Past Psychological History: Depression Smoking Status: Never smoker Past Alcohol Use History: None Reported Past Drug Use History: None Reported - Past Family History Father Family Medical History: Myocardial Infarction (MN) Mother Family Medical History: Hypertension, Myocardial Infarction ([place]) Additional Family Medical History / Comment(s): Mother of a MN at the age of 73 yrs. General Exam Limitations: no limitations General appearance: alert, in no apparent distress Head exam: Present: atraumatic, normocephalic, normal inspection Eye exam: Present: normal appearance, PERRL, EOMI. Absent: scleral icterus, conjunctival injection, periorbital swelling Respiratory exam: Present: normal lung sounds bilaterally. Absent: respiratory distress, wheezes, rales, rhonchi, stridor Cardiovascular Exam: Present: regular rate, normal rhythm, normal heart sounds. Absent: systolic murmur, diastolic murmur, rubs, gallop, clicks GI/Abdominal exam: Present: soft, normal bowel sounds. Absent: distended, tenderness, guarding, rebound, rigid Extremities exam: Present: normal inspection, normal capillary refill. Absent: full ROM, tenderness, pedal edema, joint swelling, calf tenderness Neurological exam: Absent: alert Psychiatric exam: Present: normal affect, normal mood Skin exam: Present: warm, dry, intact, normal color. Absent: rash Course Vital Signs 04/21/21 14:50 Temperature 98.9 F Pulse Rate 82 Respiratory 18 Rate Blood Pressure 150/88 O2 Sat by Pulse 94 L Oximetry Procedures - Procedures Initial comment: Clogged PEG tube was removed. Site was cleaned with alcohol swabs in a circular motion moving from the inside to the outside. Lubrication was added to the tip of a 20-Swedish PEG tube and to the patient's ostomy site. Tube was inserted. Balloon was filled with 10 mL normal saline gently pulled back to ensure proper placement. Patient tolerated well. Tube was flushed with no obstructions. Medical Decision Making - Medical Decision Making 60-year-old male presenting with a PEG tube that is clogged. Attempt at flushing PEG tube was unsuccessful, replacement PEG tube was put in place. Case discussed with Dr. Farris, patient discharge back to facility with follow- up with his primary care. Disposition Clinical Impression: PEG tube malfunction Disposition: HOME SELF-CARE Condition: Stable Instructions (If sedation given, give patient instructions): Percutaneous Endoscopic Gastrostomy (ED), PEG Tube Insertion (DC) Additional Instructions: Please return to the Emergency Department if symptoms worsen or any other concerns. Follow-up with primary care in the next several days. Is patient prescribed a controlled substance at d/c from ED?: No Referrals: Matteo Hernandez MD [Primary Care Provider] - 1-2 days Time of Disposition: 16:54
== END 2021-04-21 18:22 | disposition home or self-care (01) ==
LOC: EC 14:46
DX: K94.23 Gastrostomy malfunction (principal); I10 Essential (primary) hypertension; G40.909 Epilepsy, unspecified, not intractable, without status epilepticus; K21.9 Gastro-esophageal reflux disease without esophagitis; Z79.82 Long term (current) use of aspirin; Z79.899 Other long term (current) drug therapy; Z86.718 Personal history of other venous thrombosis and embolism; Z82.49 Family history of ischemic heart disease and other diseases of the circulatory system
CPT/HCPCS: 43762; 99283

== ENCOUNTER 2021-05-03 12:27 | Inpatient (IN) | payer MEDICARE, OTHER ==
--- NOTE | 2021-05-03 12:48 | ED ---
General Adult HPI - General Chief complaint: Abdominal Pain Stated complaint: ABD pain Time Seen by Provider: 05/03/21 12:35 Source: EMS, RN notes reviewed, old records reviewed Mode of arrival: EMS Limitations: altered mental status - History of Present Illness Initial comments: This is a 60-year-old male who presents emergency Department from a retirement he is unable to give any history. This is his baseline he is nonverbal and is not able to follow simple commands. No history of any recent fever chills cough or difficulty breathing or vomiting or diarrhea. Patient was sent in because his abdomen was distended patient nothing by mouth and he gets tube feedings only. No further history is available secondary to the fact that no one is with the patient patient is unable to give any history. - Related Data Home Medications Medication Instructions Recorded Confirmed Acetaminophen Oral Susp [Tylenol] 320 mg PEG/G-TUBE Q6H PRN 01/26/19 05/03/21 Oxybutynin Chloride [Ditropan Oral 5 mg PEG/G-TUBE TID@0600,1400,2200 09/08/19 05/03/21 Soln] Ipratropium-Albuterol Nebulize 3 ml INHALATION RT-Q6H PRN 12/16/19 05/03/21 [Duoneb 0.5 mg-3 mg/3 ml Soln] Baclofen [Lioresal] 10 mg PEG/G-TUBE TID@0600,1400,2200 07/16/20 05/03/21 carBAMazepine [TEGretol] 200 mg PEG/G-TUBE BID@0900,2100 07/30/20 05/03/21 Scopolamine [Scopolamine 1 MG/72 1 patch TRANSDERM Q72H 09/07/20 05/03/21 HR patch] Aspirin 81 mg PEG/G-TUBE DAILY@0900 11/27/20 05/03/21 Cranberry Fruit Extract [Cranberry] 500 mg PEG/G-TUBE DAILY@00 11/27/20 05/03/21 amantadine HCL [Amantadine] 100 mg PEG/G-TUBE DAILY@0900 11/27/20 05/03/21 Famotidine [Pepcid] 20 mg PEG/G-TUBE HS 03/07/21 05/03/21 Lactulose 20 gm PEG/G-TUBE BID@0900,2100 03/07/21 08/03/21 Magnesium Hydroxide [Milk of 7,200 mg PEG/G-TUBE Q72H PRN 03/07/21 05/03/21 Magnesia Concentrate] Metoprolol Tartrate [Lopressor] 75 mg PEG/G-TUBE BID@0900,209903/07/21 05/03/21 Cholecalciferol [Vitamin D3 (25 25 mcg PEG/G-TUBE DAILY@0900 05/03/21 05/03/21 Mcg = 1000 Iu)] Previous Rx's Medication Instructions Recorded Lacosamide [Vimpat] 150 mg PEG/G-TUBE BID@0900,2099 #6 03/15/21 tab Allergies Allergy/AdvReac Type Severity Reaction Status Date / Time meropenem [From Merrem] Allergy Rash/Hives Verified 05/03/21 13:28 Review of Systems ROS Statement: Those systems with pertinent positive or pertinent negative responses have been documented in the HPI. ROS Other: All systems not noted in ROS Statement are negative. Past Medical History Past Medical History: Deep Vein Thrombosis (DVT), GERD/Reflux, Hypertension, Musculoskeletal Disorder, Neurologic Disorder, Pneumonia, Seizure Disorder, Skin Disorder Additional Past Medical History / Comment(s): Pt diagnosed with MS at the age of 39 yrs, eizure/pneumonia/UTI with sepsis/respirtory failure/vented, cognitive impairment, sister states when he is feeling well he could speak a few words/nod head appropriately/give thumbs up/roll eyes but when ill is nonverbal, pt has dysphagia/NPO with peg tube, contractures, last seizure 07/2020, trigeminal neuralgia, dysarthria/anarthria/neurogenic bladder with IDC-UTIs/sepsis, multiple pneumonias, recent seizure-last one 07/03/20, incontinent of stool, pt has had decubitus ulcer coccyx-sister unsure of skin condition at this time, past anemia r/t heparin/epistaxiis which involved nasal packing/transfusions, DVT bilateral arms, hypoxia, oxygen at 2L/NC, L femoral head fracture History of Any Multi-Drug Resistant Organisms: ESBL, MRSA Date of last positivie culture/infection: 03/09/21-MRSA; 11/23/19 ESBL-E.coli MDRO Source:: Abdomen-Peg site MRSA; Urine -ESBL Past Surgical History: Tonsillectomy Additional Past Surgical History / Comment(s): Gastrostomy, peg tube, I&D coccyx decubitius, bronchoscopy, bilateral lasik eye surgery. Past Anesthesia/Blood Transfusion Reactions: No Reported Reaction Additional Past Anesthesia/Blood Transfusion Reaction / Comment(s): Pt has received blood in past without reaction. Past Psychological History: Depression Smoking Status: Never smoker Past Alcohol Use History: None Reported Past Drug Use History: None Reported - Past Family History Father Family Medical History: Myocardial Infarction (MD) Mother Family Medical History: Hypertension, Myocardial Infarction (MD) Additional Family Medical History / Comment(s): Mother of a MD at the age of 73 yrs. General Exam - General Exam Comments Initial Comments: GENERAL: Patient is well-developed and well-nourished. Patient is nontoxic and well- hydrated and is in no acute distress. ENT: Neck is soft and supple. No significant lymphadenopathy is noted. Oropharynx is clear. Moist mucous membranes. EYES: The sclera were anicteric and conjunctiva were pink and moist. Extraocular movements were intact and pupils were equal round and reactive to light. PULMONARY: Patient has quite a bit of gurgling in the lungs but it appears to be upper airway. CARDIOVASCULAR: There is a regular rate and rhythm without any murmurs gallops or rubs. ABDOMEN: Patient's abdomen is distended SKIN: Skin is clear with no lesions or rashes and otherwise unremarkable. NEUROLOGIC: Patient follows no commands his baseline is alert but not oriented at all and he continues to be late at this time MUSCULOSKELETAL: Patient does not follow commands but cannot assess his range of motion. No gross abnormalities are noted. LYMPHATICS: No significant lymphadenopathy is noted PSYCHIATRIC: Unable to assess Limitations: altered mental status Course Vital Signs 05/03/21 05/03/21 12:32 13:12 Temperature 97.0 F L 100.4 F H Pulse Rate 78 Respiratory 18 Rate Blood Pressure 131/87 O2 Sat by Pulse 96 Oximetry Medical Decision Making - Medical Decision Making EKG shows normal sinus rhythm at 79 bpm UT interval is on a 42 QRS is 82 QT i nterval 360 QTC is 412 per patient's EKG shows no ST segment elevation or depression. I went in to disimpact patient and he was passing quite a bit of gas when he rolled over. I try to disimpact but the stool so soft there was no way to disimpact completely. I spoke with Dr. raymond he agreed to admit the patient admitted the patient wrote admitting orders. - Lab Data Result diagrams: 05/03/21 13:13 05/03/21 13:13 Lab Results 05/03/21 05/03/21 05/03/21 Range/Units 13:13 13:13 13:39 WBC 8.1 (3.8-10.6) k/uL RBC 4.61 (4.30-5.90) m/uL Hgb 12.3 L (13.0-17.5) gm/dL Hct 37.9 L (39.0-53.0) % MCV 82.2 (80.0-100.0) fL MCH 26.7 (25.0-35.0) pg MCHC 32.5 (31.0-37.0) g/dL RDW 15.3 (11.5-15.5) % Plt Count 293 (150-450) k/uL MPV 9.1 Neutrophils % 75 % Lymphocytes % 13 % Monocytes % 7 % Eosinophils % 4 % Basophils % 1 % Neutrophils # 6.1 (1.3-7.7) k/uL Lymphocytes # 1.0 (1.0-4.8) k/uL Monocytes # 0.5 (0-1.0) k/uL Eosinophils # 0.4 (0-0.7) k/uL Basophils # 0.1 (0-0.2) k/uL Sodium 136 L (137-145) mmol/L Potassium 5.0 (3.5-5.1) mmol/L Chloride 104 (98-107) mmol/L Carbon Dioxide 22 (22-30) mmol/L Anion Gap 10 mmol/L BUN 23 H (9-20) mg/dL Creatinine 0.63 L (0.66-1.25) mg/dL Est GFR (CKD-EPI)AfAm >90 (>60 ml/min/1.73 sqM) Est GFR (CKD-EPI)NonAf >90 (>60 ml/min/1.73 sqM) Glucose 107 H (74-99) mg/dL Plasma Lactic Acid [place] (0.7-2.0) mmol/L Calcium 9.5 (8.4-10.2) mg/dL Total Bilirubin 0.2 (0.2-1.3) mg/dL AST 31 (17-59) U/L ALT 21 (4-49) U/L Alkaline Phosphatase 168 H (38-126) U/L Troponin I (0.000-0.034) ng/mL Total Protein 7.9 (6.3-8.2) g/dL Albumin 4.2 (3.5-5.0) g/dL Amylase 75 (30-110) U/L Lipase 245 (23-300) U/L Urine Color Yellow Urine Appearance Cloudy (Clear) Urine pH 7.0 (5.0-8.0) Ur Specific [place] 1.013 (1.001-1.035) Urine Protein Trace H (Negative) Urine Glucose (UA) Negative (Negative) Urine Ketones Negative (Negative) Urine Blood Negative (Negative) Urine Nitrite Positive (Negative) Urine Bilirubin Negative (Negative) Urine Urobilinogen <2.0 (<2.0) mg/dL Ur Leukocyte Esterase Large H (Negative) Urine WBC 27 H (0-5) /hpf Amorphous Sediment Rare H (None) /hpf Urine Bacteria Occasional H (None) /hpf Urine Mucus Rare H (None) /hpf 05/03/21 05/03/21 Range/Units 13:39 13:47 WBC (3.8-10.6) k/uL RBC (4.30-5.90) m/uL Hgb (13.0-17.5) gm/dL Hct (39.0-53.0) % MCV (80.0-100.0) fL MCH (25.0-35.0) pg MCHC (31.0-37.0) g/dL RDW (11.5-15.5) % Plt Count (150-450) k/uL MPV Neutrophils % % Lymphocytes % % Monocytes % % Eosinophils % % Basophils % % Neutrophils # (1.3-7.7) k/uL Lymphocytes # (1.0-4.8) k/uL Monocytes # (0-1.0) k/uL Eosinophils # (0-0.7) k/uL Basophils # (0-0.2) k/uL Sodium (137-145) mmol/L Potassium (3.5-5.1) mmol/L Chloride (98-107) mmol/L Carbon Dioxide (22-30) mmol/L Anion Gap mmol/L BUN (9-20) mg/dL Creatinine (0.66-1.25) mg/dL Est GFR (CKD-EPI)AfAm (>60 ml/min/1.73 sqM) Est GFR (CKD-EPI)NonAf (>60 ml/min/1.73 sqM) Glucose (74-99) mg/dL Plasma Lactic Acid [place] 1.1 (0.7-2.0) mmol/L Calcium (8.4-10.2) mg/dL Total Bilirubin (0.2-1.3) mg/dL AST (17-59) U/L ALT (4-49) U/L Alkaline Phosphatase (38-126) U/L Troponin I 0.042 H* (0.000-0.034) ng/mL Total Protein (6.3-8.2) g/dL Albumin (3.5-5.0) g/dL Amylase (30-110) U/L Lipase (23-300) U/L Urine Color Urine Appearance (Clear) Urine pH (5.0-8.0) Ur Specific [place] (1.001-1.035) Urine Protein (Negative) Urine Glucose (UA) (Negative) Urine Ketones (Negative) Urine Blood (Negative) Urine Nitrite (Negative) Urine Bilirubin (Negative) Urine Urobilinogen (<2.0) mg/dL Ur Leukocyte Esterase (Negative) Urine WBC (0-5) /hpf Amorphous Sediment (None) /hpf Urine Bacteria (None) /hpf Urine Mucus (None) /hpf Disposition Clinical Impression: Elevated troponin, Impaction of colon, Urinary tract infection Disposition: ADMITTED IP TO THIS HOSP Referrals: Matteo Hernandez MD [Primary Care Provider] - 1-2 days Time of Disposition: 15:50
[2021-05-03 13:31] LABS: Basophils # (A) 0.1 k/uL (0-0.2); Basophils % (A) 1 %; Eosinophils # (A) 0.4 k/uL (0-0.7); Eosinophils % (A) 4 %; HCT 37.9 % (39.0-53.0); HGB 12.3 gm/dL (13.0-17.5); Lymphocytes % (A) 13 %; MCH 26.7 pg (25.0-35.0); MCHC 32.5 g/dL (31.0-37.0); MCV 82.2 fL (80.0-100.0); Mean Platelet Volume 9.1; Monocytes # (A) 0.5 k/uL (0-1.0); Monocytes % (A) 7 %; Neutrophils # (A) 6.1 k/uL (1.3-7.7); Neutrophils % (A) 75 %; Platelet Count 293 k/uL (150-450); RBC 4.61 m/uL (4.30-5.90); RDW 15.3 % (11.5-15.5); WBC 8.1 k/uL (3.8-10.6)
[2021-05-03 13:44] LABS: ALT 21 U/L (4-49); AST 31 U/L (17-59); African American GFR (CKD) >90 (>60 ml/min/1.73 sqM); Albumin 4.2 g/dL (3.5-5.0); Alkaline Phosphatase 168 U/L (38-126); Amylase 75 U/L (30-110); Anion Gap 10 mmol/L; Blood Urea Nitrogen 23 mg/dL (9-20); Calcium 9.5 mg/dL (8.4-10.2); Carbon Dioxide 22 mmol/L (22-30); Chloride 104 mmol/L (98-107); Glucose 107 mg/dL (74-99); Lipase 245 U/L (23-300); Non-African American GFR(CKD) >90 (>60 ml/min/1.73 sqM); Sodium 136 mmol/L (137-145); Total Bilirubin 0.2 mg/dL (0.2-1.3); Total Protein 7.9 g/dL (6.3-8.2)
--- NOTE | 2021-05-03 13:59 | XR ---
EXAMINATION TYPE: XR chest 1V portable DATE OF EXAM: 05/03/2021 Comparison: 03/25/2020 Clinical History: 60-year-old male abdominal pain Findings: Heart borderline to mildly enlarged. Diffuse interstitial density. Mild patchy right lower lung densi ty. Old healed left-sided. No pleural effusion. Impression: 1. Mild cardiomegaly with interstitial changes. Correlate for possible CHF with mild pulmonary vascul ar congestion. 2. Some patchy atelectasis or early airspace disease at the right base.
--- NOTE | 2021-05-03 14:03 | XR ---
EXAMINATION TYPE: XR KUB DATE OF EXAM: 05/03/2021 Comparison: 02/05/2021 Clinical History: 60-year-old male abdominal pain Findings: Supine imaging limited for assessment of free air. Prominent stool distending the rectum up to 8.7 cm wide. Prominent air distention of the remainder of the colon up to 9.3 cm. No dilated small bowel loops seen. 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 Degenerative change at the right h ip. A PEG tube is present. Impression: 1. Correlate for fecal impaction. The rectum is distended with stool up to 8.7 cm wide. 2. This may be contributing to a distal colonic obstruction as there is distention of the remainder o f the colon up to 9.3 cm. Recommend disimpaction.
[2021-05-03 14:26] LABS: Amorphous Sediment,Urine Rare /hpf; Appearance,Urine Cloudy (Clear); Bacteria,Urine Occasional /hpf; Bilirubin,Urine Negative (Negative); Blood,Urine Negative (Negative); Color,Urine Yellow; Glucose,Urine (UA) Negative (Negative); Ketones,Urine Negative (Negative); Leukocyte Esterase,Urine Large (Negative); Mucus,Urine Rare /hpf; Nitrite,Urine Positive (Negative); Protein,Urine Trace (Negative); Specific Gravity,Urine 1.013 (1.001-1.035); Urobilinogen,Urine <2.0 mg/dL (<2.0); WBC,Urine 27 /hpf (0-5)
[2021-05-03] MEDS ORDERED: cefTRIAXone IN SWFI 1,000 MG/10 ML SYRINGE IVP STA (15:06)
[2021-05-03] MEDS ORDERED: SODIUM CHLORIDE 0.9% 1,000 ML IV ONE (15:51)
[2021-05-03] MEDS ORDERED: IPRATROPIUM-ALBUTEROL 3 ML NEB INHALATION PRN (20:43)
[2021-05-03] MEDS ORDERED: MAGNESIUM HYDROXIDE 2,400 MG/10 ML CUP PEG/G-TUBE PRN (20:43)
[2021-05-03] MEDS: HEPARIN SODIUM,PORCINE/PF 5,000 UNIT/0.5 ML SYRINGE SQ SCH (22:29)
[2021-05-03] MEDS: METOPROLOL TARTRATE 25 MG TAB PEG/G-TUBE SCH (22:29)
[2021-05-03] MEDS: OXYBUTYNIN CHLORIDE 5 MG TAB PEG/G-TUBE SCH (22:29)
[2021-05-03] MEDS: LACTULOSE 20 GM/30 ML CUP PEG/G-TUBE SCH (22:29)
[2021-05-03] MEDS: SCOPOLAMINE 1.5MG/72HR PATCH TRANSDERM SCH (22:29)
[2021-05-03] MEDS: BACLOFEN 10 MG TAB PEG/G-TUBE SCH (22:29)
--- NOTE | 2021-05-03 22:29 | P.HPIM ---
History of Present Illness This is a pleasant 60 male with past medical history of deep venous thrombosis, GERD, hypertension, seizure disorder, history of MS at age 39. Multiple infections including pneumonia and UTI. He has contractures in all extremities, status post PEG tube replacement Patient is poor historian and cannot provide information he was transferred from [facility] for abdominal pain and distention. He is nonverbal at baseline and bed bound and cannot provide information Patient also has a Stein catheter on presentation On admission he had a fever of 100.4. Vitals are stable. CBC is unremarkable. BMP and liver enzymes are unremarkable as well. Troponin is elevated at 0.043 Urinalysis is suspicious for infection EKG showed normal sinus rhythm at [address]-T changes KUB: Cartilage for fecal impaction with distended rectum with stool up to 8.7 cm with possible distal colonic distention as well just x-ray showing mild cardiomegaly with interstitial changes. Current it for possible CHF with mild pulmonary vascular congestion. Some patchy atelectasis Echocardiogram from 07/2020 showing ejection fraction of 60-65% Review of Systems N/a, and cannot provide information he is nonverbal Past Medical History Past Medical History: Deep Vein Thrombosis (DVT), GERD/Reflux, Hypertension, Musculoskeletal Disorder, Neurologic Disorder, Pneumonia, Seizure Disorder, Skin Disorder Additional Past Medical History / Comment(s): Pt diagnosed with MS at the age of 39 yrs, eizure/pneumonia/UTI with sepsis/respirtory failure/vented, cognitive impairment, sister states when he is feeling well he could speak a few words/nod head appropriately/give thumbs up/roll eyes but when ill is nonverbal, pt has dysphagia/NPO with peg tube, contractures, last seizure 07/2020, trigeminal neuralgia, dysarthria/anarthria/neurogenic bladder with IDC-UTIs/sepsis, multiple pneumonias, recent seizure-last one 07/03/20, incontinent of stool, pt has had decubitus ulcer coccyx-sister unsure of skin condition at this time, past anemia r/t heparin/epistaxiis which involved nasal packing/transfusions, DVT bilateral arms, hypoxia, oxygen at 2L/NC, L femoral head fracture History of Any Multi-Drug Resistant Organisms: ESBL, MRSA Date of last positivie culture/infection: 03/09/21-MRSA; 11/23/19 ESBL-E.coli MDRO Source:: Abdomen-Peg site MRSA; Urine -ESBL Past Surgical History: Tonsillectomy Additional Past Surgical History / Comment(s): Gastrostomy, peg tube, I&D coccyx decubitius, bronchoscopy, bilateral lasik eye surgery. Past Anesthesia/Blood Transfusion Reactions: No Reported Reaction Additional Past Anesthesia/Blood Transfusion Reaction / Comment(s): Pt has received blood in past without reaction. Past Psychological History: Depression Smoking Status: Never smoker Past Alcohol Use History: None Reported Past Drug Use History: None Reported - Past Family History Father Family Medical History: Myocardial Infarction (MA) Mother Family Medical History: Hypertension, Myocardial Infarction (MA) Additional Family Medical History / Comment(s): Mother of a MA at the age of 73 yrs. Medications and Allergies Home Medications Medication Instructions Recorded Confirmed Type Acetaminophen Oral Susp [Tylenol] 320 mg PEG/G-TUBE Q6H PRN 01/26/19 05/03/21 History Oxybutynin Chloride [Ditropan Oral 5 mg PEG/G-TUBE TID@0600,1400,2200 09/08/19 05/03/21 History Soln] Ipratropium-Albuterol Nebulize 3 ml INHALATION RT-Q6H PRN 12/16/19 05/03/21 History [Duoneb 0.5 mg-3 mg/3 ml Soln] Baclofen [Lioresal] 10 mg PEG/G-TUBE TID@0600,1400,2200 07/16/20 05/03/21 History carBAMazepine [TEGretol] 200 mg PEG/G-TUBE BID@0900,2100 07/30/20 05/03/21 History Scopolamine [Scopolamine 1 MG/72 1 patch TRANSDERM Q72H 09/07/20 05/03/21 History HR patch] Aspirin 81 mg PEG/G-TUBE DAILY@0911/27/20 05/03/21 History Cranberry Fruit Extract [Cranberry] 500 mg PEG/G-TUBE DAILY@89911/27/20 05/03/21 History amantadine HCL [Amantadine] 100 mg PEG/G-TUBE DAILY@0900 11/27/20 05/03/21 History Famotidine [Pepcid] 20 mg PEG/G-TUBE HS 03/07/21 05/03/21 History Lactulose 20 gm PEG/G-TUBE BID@0900,2100 03/07/21 05/03/21 History Magnesium Hydroxide [Milk of 7,200 mg PEG/G-TUBE Q72H PRN 03/07/21 05/03/21 History Magnesia Concentrate] Metoprolol Tartrate [Lopressor] 75 mg PEG/G-TUBE BID@0900,2100 03/07/21 05/03/21 History Lacosamide [Vimpat] 150 mg PEG/G-TUBE BID@0900,2100 #6 03/15/21 05/03/21 Rx tab Cholecalciferol [Vitamin D3 (25 25 mcg PEG/G-TUBE DAILY@0900 05/03/21 05/03/21 History Mcg = 1000 Iu)] Allergies Allergy/AdvReac Type Severity Reaction Status Date / Time meropenem [From Merrem] Allergy Rash/Hives Verified 05/03/21 13:28 Physical Exam Vitals: Vital Signs Temp Pulse Resp BP Pulse Ox 05/03/21 19:13 81 16 98 05/03/21 16:03 98.9 F 81 18 130/89 98 05/03/21 13:12 100.4 F H 05/03/21 12:32 97.0 F L 78 18 131/87 96 Intake and Output 05/03/21 05/03/21 05/03/21 06:59 14:59 22:59 Other: Weight 72.575 kg -GENERAL: The patient is is alert and awake and has good attention span, he follows with his eyes but he does not follows commands , not in any acute distress. Well developed, well nourished. HEENT: Pupils are round and equally reacting to light. EOMI. No scleral icterus. No conjunctival pallor. Normocephalic, atraumatic. No pharyngeal erythema. No thyromegaly. CARDIOVASCULAR: S1 and S2 present. No murmurs, rubs, or gallops. PULMONARY: Chest is clear to auscultation, no wheezing or crackles. -ABDOMEN: Soft, nontender, nondistended, normoactive bowel sounds. No palpable organomegaly. PEG tube is in place MUSCULOSKELETAL: No joint swelling or deformity. -EXTREMITIES: No cyanosis, clubbing, or pedal edema. Contractures of all 4 extremities NEUROLOGICAL: Gross neurological examination did not reveal any focal deficits. SKIN: No rashes. no petechiae. Results CBC & Chem 7: 05/03/21 13:13 05/03/21 13:13 Labs: Abnormal Lab Results - Last 24 Hours (Table) 05/03/21 05/03/21 05/03/21 Range/Units 13:13 13:13 13:39 Hgb 12.3 L (13.0-17.5) gm/dL Hct 37.9 L (39.0-53.0) % Sodium 136 L (137-145) mmol/L BUN 23 H (9-20) mg/dL Creatinine 0.63 L (0.66-1.25) mg/dL Glucose 107 H (74-99) mg/dL Alkaline Phosphatase 168 H (38-126) U/L Troponin I (0.000-0.034) ng/mL Urine Protein Trace H (Negative) Ur Leukocyte Esterase Large H (Negative) Urine WBC 27 H (0-5) /hpf Amorphous Sediment Rare H (None) /hpf Urine Bacteria Occasional H (None) /hpf Urine Mucus Rare H (None) /hpf 05/03/21 05/03/21 Range/Units 13:47 16:39 Hgb (13.0-17.5) gm/dL Hct (39.0-53.0) % Sodium (137-145) mmol/L BUN (9-20) mg/dL Creatinine (0.66-1.25) mg/dL Glucose (74-99) mg/dL Alkaline Phosphatase (38-126) U/L Troponin I 0.042 H* 0.043 H* (0.000-0.034) ng/mL Urine Protein (Negative) Ur Leukocyte Esterase (Negative) Urine WBC (0-5) /hpf Amorphous Sediment (None) /hpf Urine Bacteria (None) /hpf Urine Mucus (None) /hpf Assessment and Plan Assessment: Acute urinary tract infection elevated troponin, rule out cardiac cause fecal impaction with dilated bowel loops altered mental status, most likely metabolic encephalopathy secondary to above History of GERD Hypertension History of seizure disorder Of MS at age 39 with multiple limb contractures History of multiple infections including UTI and pneumonia Post PEG tube placement History of DVT History of GERD Hypertension multiple sclerosis 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 Continue same treatment. Continue with symptomatic treatment. Resume home medication. Monitor lytes and vitals. DVT and GI prophylaxis. Further recommendations as per clinical course of the patient DVT prophylaxis: Subcutaneous heparin GI Prophylaxis: Pepcid Prognosis is guarded
[2021-05-03] MEDS: carBAMazepine 200 MG TAB PEG/G-TUBE SCH (22:30)
[2021-05-03] MEDS: FAMOTIDINE 20 MG/2 ML VIAL IV SCH (22:30)
[2021-05-03] MEDS: LACOSAMIDE 150 MG TABLET PEG/G-TUBE SCH (22:36)
[2021-05-04] MEDS: BACLOFEN 10 MG TAB PEG/G-TUBE SCH ×3 (06:16→21:43)
[2021-05-04] MEDS: OXYBUTYNIN CHLORIDE 5 MG TAB PEG/G-TUBE SCH ×3 (06:16→21:43)
--- NOTE | 2021-05-04 07:18 | XR ---
EXAMINATION TYPE: XR KUB DATE OF EXAM: 05/04/2021 COMPARISON: 05/03/2021 INDICATION: Rectal distention, fecal impaction TECHNIQUE: Single view abdomen supine view FINDINGS: Colonic bowel gas is present in the distal colon. There is a large fecal ball is present. Some nonspe cific small bowel gas which is not dilated is present. Psoas margins are not visualized. No organomegaly is present. Chronic left hip fractures evident with degenerative destruction of the joint space. IMPRESSION: 1. Continued fecal debris at the rectum without centimeters size. There is some improvement of the co lonic bowel gas pattern. Fecal impaction remains within the differential.
[2021-05-04 08:18] LABS: African American GFR (CKD) >90 (>60 ml/min/1.73 sqM); Anion Gap 11 mmol/L; Blood Urea Nitrogen 15 mg/dL (9-20); Calcium 9.1 mg/dL (8.4-10.2); Carbon Dioxide 17 mmol/L (22-30); Chloride 110 mmol/L (98-107); Glucose 100 mg/dL (74-99); Non-African American GFR(CKD) >90 (>60 ml/min/1.73 sqM); Potassium 4.8 mmol/L (3.5-5.1); Sodium 138 mmol/L (137-145)
[2021-05-04] MEDS: LACTULOSE 20 GM/30 ML CUP PEG/G-TUBE SCH ×2 (08:30→21:43)
[2021-05-04] MEDS: carBAMazepine 200 MG TAB PEG/G-TUBE SCH ×2 (08:30→21:43)
[2021-05-04] MEDS: ACETAMINOPHEN ORAL SUSP (PEDS) 3,840 MG/120 ML BOTTLE PEG/G-TUBE PRN (08:30)
[2021-05-04] MEDS: LACOSAMIDE 150 MG TABLET PEG/G-TUBE SCH ×2 (08:30→21:43)
[2021-05-04] MEDS: FAMOTIDINE 20 MG/2 ML VIAL IV SCH ×2 (08:30→21:43)
[2021-05-04] MEDS: METOPROLOL TARTRATE 25 MG TAB PEG/G-TUBE SCH ×2 (08:31→21:43)
[2021-05-04] MEDS: ASPIRIN 81 MG PEG/G-TUBE SCH (08:31)
[2021-05-04] MEDS: CHOLECALCIFEROL 25 MCG (1000 IU) TABLET PEG/G-TUBE SCH (08:31)
[2021-05-04] MEDS: HEPARIN SODIUM,PORCINE/PF 5,000 UNIT/0.5 ML SYRINGE SQ SCH ×2 (08:31→21:42)
[2021-05-04 08:35] LABS: Basophils % (A) 1 %; Eosinophils # (A) 0.3 k/uL (0-0.7); Eosinophils % (A) 3 %; HCT 44.7 % (39.0-53.0); HGB 13.9 gm/dL (13.0-17.5); Hypochromasia Marked; Lymphocytes # (A) 1.1 k/uL (1.0-4.8); Lymphocytes % (A) 14 %; MCH 27.4 pg (25.0-35.0); MCV 88.5 fL (80.0-100.0); Mean Platelet Volume 9.7; Monocytes # (A) 0.6 k/uL (0-1.0); Monocytes % (A) 7 %; Neutrophils # (A) 6.1 k/uL (1.3-7.7); Neutrophils % (A) 73 %; Platelet Count 279 k/uL (150-450); RBC 5.05 m/uL (4.30-5.90); RDW 15.3 % (11.5-15.5); WBC 8.3 k/uL (3.8-10.6)
[2021-05-04] MEDS ORDERED: FUROSEMIDE 10 MG/ML 2 ML VIAL IV STA (09:30)
[2021-05-04] MEDS ORDERED: PIPERACILLIN-TAZOBACTAM 3.375 GM in SODIUM CHLORIDE 0.9% 100 ML IVPB STA (09:32)
--- NOTE | 2021-05-04 09:38 | P.CRDCN ---
History of Present Illness History of present illness: HISTORY OF PRESENTING ILLNESS This is a pleasant 60-year-old male past medical history significant for deep venous thrombosis, GERD, hypertension, seizure disorder, multiple sclerosis, multiple infections including pneumonia and UTI. We have been asked to see in consultation for elevated troponin. The patient is nonverbal and does not communicate at baseline. Information is obtained from the medical record and the nursing staff. 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 Patient is poor historian and cannot provide information he was transferred from [facility] for abdominal pain and distention. Abdominal x-ray revealed record Robby distended. 23.7 cm wide, correlate for fecal impaction. May be continuing to distal colonic obstruction with distention of the remainder of the colon up to 9.3 cm. Disimpaction attempted in emergency department. EKG reveals sinus rhythm HR [address] or T wave abnormalities noted. Chest x-ray some patchy atelectasis, heart is borderline to mildly enlarged. No change compared to prior. Laboratory data reviewed, troponin 0.043, WBC 8.3, hemoglobin 13.9, platelets 279, sodium 138, potassium 4.8, BUN 15, serum creatinine 0.5 Current daily cardiac medications include Lopressor 75 mg twice a day and aspirin 81 mg daily. Most recent echocardiogram 07/2020 revealed EF of 60-65%, trace mitral regurgitation, mild tricuspid regurgitation. REVIEW OF SYSTEMS At the time of my exam: Unable to obtain accurate review of systems secondary to patient being nonverbal and noncommunicative toward. PHYSICAL EXAMINATION Blood pressure 135/78 heart rate86 afebrile and maintaining oxygen saturation on room air, 98% CONSTITUTIONAL: No apparent distress. HEENT: Head is normocephalic. Pupils are equal, round. Sclerae anicteric. Mucous membranes of the mouth are moist. No JVD. CHEST EXAMINATION: Lungs ronchi throughout . No chest wall tenderness is noted on palpation or with deep breathing. HEART EXAMINATION: Regular tachycardic rate and rhythm. S1, S2 heard. No murmurs, gallops or rub. ABDOMEN: Distended, PEG tube. EXTREMITIES: 2+ peripheral pulses, no lower extremity edema and no calf tenderness. Contracted lower extremities. NEURO: Lethargic, non-verbal ASSESSMENT Elevated troponin, not indicative of acute coronary showed him, most likely related to type II MO with supply, demand mismatch Fecal impaction with dilated bowel loops History of GERD History of Hypertension History of seizure disorder Multiple Sclerosis History of multiple infections including UTI and pneumonia Post PEG tube placement Nonverbal PLAN From cardiology perspective elevated troponin not indicative of acute coronary syndrome. We will repeat patient's echocardiogram, if no changes or abnormalities with echocardiogram, no further cardiac workup needed. Continue home cardiac medications. Ongoing medical management per primary team. Nurse Practitioner note has been reviewed, I agree with a documented findings and plan of care. Patient was seen and examined. Past Medical History Past Medical History: Deep Vein Thrombosis (DVT), GERD/Reflux, Hypertension, Musculoskeletal Disorder, Neurologic Disorder, Pneumonia, Seizure Disorder, Skin Disorder Additional Past Medical History / Comment(s): Pt diagnosed with MS at the age of 39 yrs, eizure/pneumonia/UTI with sepsis/respirtory failure/vented, cognitive impairment, sister states when he is feeling well he could speak a few words/nod head appropriately/give thumbs up/roll eyes but when ill is nonverbal, pt has dysphagia/NPO with peg tube, contractures, last seizure 07/2020, trigeminal neuralgia, dysarthria/anarthria/neurogenic bladder with IDC-UTIs/sepsis, multiple pneumonias, recent seizure-last one 07/03/20, incontinent of stool, pt has had decubitus ulcer coccyx-sister unsure of skin condition at this time, past anemia r/t heparin/epistaxiis which involved nasal packing/transfusions, DVT bilateral arms, hypoxia, oxygen at 2L/NC, L femoral head fracture History of Any Multi-Drug Resistant Organisms: ESBL, MRSA Date of last positivie culture/infection: 03/09/21-MRSA; 11/23/19 ESBL-E.coli MDRO Source:: Abdomen-Peg site MRSA; Urine -ESBL Past Surgical History: Tonsillectomy Additional Past Surgical History / Comment(s): Gastrostomy, peg tube, I&D coccyx decubitius, bronchoscopy, bilateral lasik eye surgery. Past Anesthesia/Blood Transfusion Reactions: No Reported Reaction Additional Past Anesthesia/Blood Transfusion Reaction / Comment(s): Pt has received blood in past without reaction. Past Psychological History: Depression Smoking Status: Never smoker Past Alcohol Use History: None Reported Past Drug Use History: None Reported - Past Family History Father Family Medical History: Myocardial Infarction (MO) Mother Family Medical History: Hypertension, Myocardial Infarction (MO) Additional Family Medical History / Comment(s): Mother of a MO at the age of 73 yrs. Medications and Allergies Home Medications Medication Instructions Recorded Confirmed Type Acetaminophen Oral Susp [Tylenol] 320 mg PEG/G-TUBE Q6H PRN 01/26/19 05/03/21 History Oxybutynin Chloride [Ditropan Oral 5 mg PEG/G-TUBE TID@0600,1400,2200 09/08/19 05/03/21 History Soln] Ipratropium-Albuterol Nebulize 3 ml INHALATION RT-Q6H PRN 12/16/19 05/03/21 History [Duoneb 0.5 mg-3 mg/3 ml Soln] Baclofen [Lioresal] 10 mg PEG/G-TUBE TID@0600,1400,2200 07/16/20 05/03/21 History carBAMazepine [TEGretol] 200 mg PEG/G-TUBE BID@0900,2100 07/30/20 05/03/21 History Scopolamine [Scopolamine 1 MG/72 1 patch TRANSDERM Q72H 09/07/20 05/03/21 History HR patch] Aspirin 81 mg PEG/G-TUBE DAILY@0900 11/27/20 05/03/21 History Cranberry Fruit Extract [Cranberry] 500 mg PEG/G-TUBE DAILY@0900 11/27/20 05/03/21 History amantadine HCL [Amantadine] 100 mg PEG/G-TUBE DAILY@0900 11/27/20 05/03/21 History Famotidine [Pepcid] 20 mg PEG/G-TUBE HS 03/07/21 05/03/21 History Lactulose 20 gm PEG/G-TUBE BID@0900,2100 03/07/21 05/03/21 History Magnesium Hydroxide [Milk of 7,200 mg PEG/G-TUBE Q72H PRN 03/07/21 05/03/21 History Magnesia Concentrate] Metoprolol Tartrate [Lopressor] 75 mg PEG/G-TUBE BID@0900,2100 03/07/21 05/03/21 History Lacosamide [Vimpat] 150 mg PEG/G-TUBE BID@0900,2100 #6 03/15/21 05/03/21 Rx tab Cholecalciferol [Vitamin D3 (25 25 mcg PEG/G-TUBE DAILY@0900 05/03/21 05/03/21 History Mcg = 1000 Iu)] Allergies Allergy/AdvReac Type Severity Reaction Status Date / Time meropenem [From Merrem] Allergy Rash/Hives Verified 05/03/21 13:28 Physical Exam Vitals: Vital Signs Temp Pulse Pulse Resp BP BP Pulse Ox 05/04/21 04:00 98.5 F 110 H 20 138/74 96 05/04/21 02:00 106 H 22 05/04/21 00:00 78 20 134/80 95 05/03/21 19:13 81 16 98 05/03/21 16:03 98.9 F 81 18 130/89 98 05/03/21 13:12 100.4 F H 05/03/21 12:32 97.0 F L 78 18 131/87 96 Intake and Output 05/03/21 05/04/21 05/04/21 22:59 06:59 14:59 Output Total 800 Balance -800 Output: Urine 800 Other: Weight 75 kg Results 05/04/21 07:22 05/04/21 07:22 Cardiac Enzymes 05/03/21 05/03/21 05/03/21 Range/Units 13:13 13:47 16:39 AST 31 (17-59) U/L Troponin I 0.042 H* 0.043 H* (0.000-0.034) ng/mL 05/03/21 Range/Units 19:56 AST (17-59) U/L Troponin I 0.048 H* (0.000-0.034) ng/mL CBC 05/03/21 Range/Units 13:13 WBC 8.1 (3.8-10.6) k/uL RBC 4.61 (4.30-5.90) m/uL Hgb 12.3 L (13.0-17.5) gm/dL Hct 37.9 L (39.0-53.0) % Plt Count 293 (150-450) k/uL Comprehensive Metabolic Panel 05/03/21 Range/Units 13:13 Sodium 136 L (137-145) mmol/L Potassium 5.0 (3.5-5.1) mmol/L Chloride 104 (98-107) mmol/L Carbon Dioxide 22 (22-30) mmol/L BUN 23 H (9-20) mg/dL Creatinine 0.63 L (0.66-1.25) mg/dL Glucose 107 H (74-99) mg/dL Calcium 9.5 (8.4-10.2) mg/dL AST 31 (17-59) U/L ALT 21 (4-49) U/L Alkaline Phosphatase 168 H (38-126) U/L Total Protein 7.9 (6.3-8.2) g/dL Albumin 4.2 (3.5-5.0) g/dL Current Medications Generic Name Dose Route Start Last Admin Trade Name Freq PRN Reason Stop Dose Admin Acetaminophen 320 mg 05/03/21 22:00 Acetaminophen Oral Susp (Peds) 3,840 Mg/120 Ml Bottle PEG/G-TUBE Q6H PRN Fever and/ or Pain Albuterol/Ipratropium 3 ml 05/03/21 20:43 Ipratropium-Albuterol 3 Ml Neb INHALATION RT-Q6H PRN Shortness Of Breath Amantadine HCl 100 mg 05/04/21 09:00 Amantadine Hcl 100 Mg Cap PO DAILY@0900 [facility] Aspirin 81 mg 05/04/21 09:00 Aspirin 81 Mg PEG/G-TUBE DAILY@0900 [facility] Baclofen 10 mg 05/03/21 22:00 05/04/21 06:16 Baclofen 10 Mg Tab PEG/G-TUBE 10 mg TID@0600,1400,2200 [facility] Administration Carbamazepine 200 mg 05/03/21 21:00 05/03/21 22:30 Carbamazepine 200 Mg Tab PEG/G-TUBE 200 mg BID@0900,2100 [facility] Administration Cholecalciferol 25 mcg 05/04/21 09:00 Cholecalciferol 25 Mcg (1000 Iu) Tablet PEG/G-TUBE DAILY@0900 [facility] Famotidine 20 mg 05/03/21 21:00 05/03/21 22:30 Famotidine 20 Mg/2 Ml Vial IV 20 mg Q12HR [facility] Administration Heparin Sodium (Porcine) 5,000 unit 05/03/21 21:00 05/03/21 22:29 Heparin Sodium,Porcine/Pf 5,000 Unit/0.5 Ml Syringe SQ 5,000 unit Q12HR [facility] Administration Ceftriaxone Sodium 2 gm/ 50 mls @ 100 mls/hr 05/04/21 16:00 Sodium Chloride IVPB Q24H [facility] Lacosamide 150 mg 05/03/21 21:00 05/03/21 22:36 Lacosamide 150 Mg Tablet PEG/G-TUBE 150 mg BID@0900,2100 [facility] Administration Lactulose 20 gm 05/03/21 21:00 05/03/21 22:29 Lactulose 20 Gm/30 Ml Cup PEG/G-TUBE 20 gm BID@0900,2100 [facility] Administration Magnesium Hydroxide 2,400 mg 05/03/21 20:43 Magnesium Hydroxide 2,400 Mg/10 Ml Cup PEG/G-TUBE Q72H PRN Constipation Metoprolol Tartrate 75 mg 05/03/21 21:00 05/03/21 22:29 Metoprolol Tartrate 25 Mg Tab PEG/G-TUBE 75 mg BID@0900,2100 [facility] Administration Oxybutynin Chloride 5 mg 05/03/21 22:00 05/04/21 06:16 Oxybutynin Chloride 5 Mg Tab PEG/G-TUBE 5 mg TID@0600,1400,2200 [facility] Administration Scopolamine 1 patch 05/03/21 21:00 05/03/21 22:29 Scopolamine 1.5mg/72hr Patch TRANSDERM 1 patch Q72H [facility] Administration Intake and Output 05/03/21 05/04/21 05/04/21 22:59 06:59 14:59 Output Total 800 Balance -800 Output: Urine 800 Other: Weight 75 kg 05/03/21 13:13 05/03/21 13:13
[2021-05-04 10:51] VITALS: BMI 25.1
--- NOTE | 2021-05-04 12:01 | ECHOF ---
Referral Reason:LV function MEASUREMENTS -------- HEIGHT: 172.7 cm WEIGHT: 74.8 kg BP: IVSd: 1.2 cm (0.6 - 1.1) LVIDd: 3.7 cm (3.9 - 5.3) LVPWd: 1.3 cm (0.6 - 1.1) IVSs: 1.9 cm LVIDs: 1.9 cm LVPWs: 1.5 cm Ao Diam: 3.7 cm (2.0 - 3.7) AV Cusp: 2.1 cm (1.5 - 2.6) LA Diam: 2.3 cm (2.7 - 3.8) MV EXCURSION: 16.659 mm (> 18.000) MV EF SLOPE: 80 mm/s (70 - 150) EPSS: 0.7 cm MV E Memo: 0.46 m/s MV DecT: 224 ms MV A Memo: 0.50 m/s MV E/A Ratio: 0.94 RAP: 5.00 mmHg RVSP: 9.98 mmHg FINDINGS -------- Sinus rhythm. This was a technically adequate study. The left ventricular size is normal. There is mild concentric left ventricular hypertrophy. Overa ll left ventricular systolic function is normal with, an EF between 55 - 60 %. The right ventricle is normal in size. The left atrial size is normal. The right atrial size is normal. The aortic valve was not well visualized. The mitral valve is normal. There is trace to mild mitral regurgitation. The tricuspid valve appears structurally normal. Trace tricuspid regurgitation present. Right najma tricular systolic pressure is normal at < 35 mmHg. The pulmonic valve was not well visualized. The aortic root size is normal. IVC Not well visulized. There is no pericardial effusion. CONCLUSIONS -------- 1. There is mild concentric left ventricular hypertrophy. 2. Overall left ventricular systolic function is normal with, an EF between 55 - 60 %. 3. The left atrial size is normal. 4. There is trace to mild mitral regurgitation. 5. Trace tricuspid regurgitation present. 6. There is no pericardial effusion. CENTRAL COMMUNICATIONS SPECIALIST: Dorothy Ponec, [facility]
--- NOTE | 2021-05-04 12:03 | P.GSCN ---
History of Present Illness Consult date: 05/04/21 History of present illness: CHIEF COMPLAINT: Abdominal distention HISTORY OF PRESENT ILLNESS: This is a 60-year-old male with a known history of multiple sclerosis and seizure disorder. He presented to the emergency room due to increasing abdominal distention. Patient is essentially nonverbal and bedbound. Most of history was obtained from patient's chart. Patient had KUB x-ray completed showing fecal impaction. The rectum is distended with stool to 8.7 cm wide. There may be a contributing distal colonic obstruction as there is distention of the remainder of the colon up to 9.3 cm. Recommend disimpaction. ER physician tried to disimpact patient yesterday. According to nursing staff patient did have 3 bowel movements yesterday. His repeat x-ray shows continued fecal debris at the rectum without centimeters size. There is some improvement of the colonic bowel gas pattern. Fecal impaction remains within the differential. Patient also is being treated for UTI. Surgical service consult in regards to patient's fecal impaction PAST MEDICAL HISTORY: See list. PAST SURGICAL HISTORY: See list. MEDICATIONS: See list. ALLERGIES: See list. SOCIAL HISTORY: No illicit drug use. REVIEW OF SYSTEMS: CONSTITUTIONAL: Denies fever or chills. HEENT: Denies blurred vision, vision changes, or eye pain. Denies hemoptysis CARDIOVASCULAR: Denies chest pain or pressure. RESPIRATORY: No shortness of breath. GASTROINTESTINAL: See HPI for pertinent findings HEMATOLOGIC: Denies bleeding disorders. GENITOURINARY: Denies any blood in urine or increased urinary frequency. SKIN: Denies pruitis. Denies rash. PHYSICAL EXAM: VITAL SIGNS: Reviewed GENERAL: Well-developed in no acute distress. HEENT: No sclera icterus. Extraocular movements grossly intact. Moist buccal mucosa. Head is atraumatic, normocephalic. No nasal drainage. ABDOMEN: Soft. Distended. Nontender PEG tube site clean dry and intact NEUROLOGIC: Awake and alert. Nonverbal. LABORATORY DATA: WBC 8.3 hemoglobin 13.9 and platelets 279 sodium 138 potassium 4.8 creatinine 0.59 glucose 100 Troponins elevated LFTs normal lipase normal Urinalysis positive for infection IMAGING: Imaging as stated above ASSESSMENT: 1. Fecal impaction with distended rectum PLAN: -No surgical intervention planned -Recommend conservative management -Soap morgan enemas 2 ordered -Continue lactulose -Okay to resume tube feedings Thank you for this consultation Physician Automatic Profile Shaper Operator note has been reviewed by physician. Signing provider agrees with the documented findings, assessment, and plan of care. Past Medical History Past Medical History: Deep Vein Thrombosis (DVT), GERD/Reflux, Hypertension, Musculoskeletal Disorder, Neurologic Disorder, Pneumonia, Seizure Disorder, Skin Disorder Additional Past Medical History / Comment(s): Pt diagnosed with MS at the age of 39 yrs, eizure/pneumonia/UTI with sepsis/respirtory failure/vented, cognitive impairment, sister states when he is feeling well he could speak a few words/nod head appropriately/give thumbs up/roll eyes but when ill is nonverbal, pt has dysphagia/NPO with peg tube, contractures, last seizure 07/2020, trigeminal neuralgia, dysarthria/anarthria/neurogenic bladder with IDC-UTIs/sepsis, multiple pneumonias, recent seizure-last one 07/03/20, incontinent of stool, pt has had decubitus ulcer coccyx-sister unsure of skin condition at this time, pas t anemia r/t heparin/epistaxiis which involved nasal packing/transfusions, DVT bilateral arms, hypoxia, oxygen at 2L/NC, L femoral head fracture History of Any Multi-Drug Resistant Organisms: ESBL, MRSA Year Discovered:: 03/09/21-MRSA; 11/23/19 ESBL-E.coli MDRO Source:: Abdomen-Peg site MRSA; Urine -ESBL Past Surgical History: Tonsillectomy Additional Past Surgical History / Comment(s): Gastrostomy, peg tube, I&D coccyx decubitius, bronchoscopy, bilateral lasik eye surgery. Past Anesthesia/Blood Transfusion Reactions: No Reported Reaction Additional Past Anesthesia/Blood Transfusion Reaction / Comm: Pt has received blood in past without reaction. Past Psychological History: Depression Smoking Status: Never smoker Past Alcohol Use History: None Reported Past Drug Use History: None Reported - Past Family History Father Family Medical History: Myocardial Infarction (SD) Mother Family Medical History: Hypertension, Myocardial Infarction (SD) Additional Family Medical History / Comment(s): Mother of a SD at the age of 73 yrs. Medications and Allergies Home Medications Medication Instructions Recorded Confirmed Type Acetaminophen Oral Susp [Tylenol] 320 mg PEG/G-TUBE Q6H PRN 01/26/19 05/03/21 History Oxybutynin Chloride [Ditropan Oral 5 mg PEG/G-TUBE TID@0600,1400,2200 09/08/19 05/03/21 History Soln] Ipratropium-Albuterol Nebulize 3 ml INHALATION RT-Q6H PRN 12/16/19 05/03/21 History [Duoneb 0.5 mg-3 mg/3 ml Soln] Baclofen [Lioresal] 10 mg PEG/G-TUBE TID@0600,1400,2200 07/16/20 05/03/21 History carBAMazepine [TEGretol] 200 mg PEG/G-TUBE BID@0900,2100 07/30/20 05/03/21 History Scopolamine [Scopolamine 1 MG/72 1 patch TRANSDERM Q72H 09/07/20 05/03/21 History HR patch] Aspirin 81 mg PEG/G-TUBE DAILY@0900 11/27/20 05/03/21 History Cranberry Fruit Extract [Cranberry] 500 mg PEG/G-TUBE DAILY@0900 11/27/20 05/03/21 History amantadine HCL [Amantadine] 100 mg PEG/G-TUBE DAILY@0900 11/27/20 05/03/21 History Famotidine [Pepcid] 20 mg PEG/G-TUBE HS 03/07/21 05/03/21 History Lactulose 20 gm PEG/G-TUBE BID@0900,2100 03/07/21 05/03/21 History Magnesium Hydroxide [Milk of 7,200 mg PEG/G-TUBE Q72H PRN 03/07/21 05/03/21 History Magnesia Concentrate] Metoprolol Tartrate [Lopressor] 75 mg PEG/G-TUBE BID@0900,2100 03/07/21 05/03/21 History Lacosamide [Vimpat] 150 mg PEG/G-TUBE BID@0900,2100 #6 03/15/21 05/03/21 Rx tab Cholecalciferol [Vitamin D3 (25 25 mcg PEG/G-TUBE DAILY@0900 05/03/21 05/03/21 History Mcg = 1000 Iu)] Allergies Allergy/AdvReac Type Severity Reaction Status Date / Time meropenem [From Merrem] Allergy Rash/Hives Verified 08/03/21 13:28 Surgical - Exam Vital Signs Temp Pulse Resp BP Pulse Ox 97.0 F L 78 18 131/87 96 05/03/21 12:32 05/03/21 12:32 05/03/21 12:32 05/03/21 12:32 05/03/21 12:32 Results - Labs 05/04/21 07:22 05/04/21 07:22 Abnormal Lab Results - Last 24 Hours (Table) 05/03/21 05/03/21 05/03/21 Range/Units 13:13 13:13 13:39 Hgb 12.3 L (13.0-17.5) gm/dL Hct 37.9 L (39.0-53.0) % Sodium 136 L (137-145) mmol/L Chloride (98-107) mmol/L Carbon Dioxide (22-30) mmol/L BUN 23 H (9-20) mg/dL Creatinine 0.63 L (0.66-1.25) mg/dL Glucose 107 H (74-99) mg/dL Alkaline Phosphatase 168 H (38-126) U/L Troponin I (0.000-0.034) ng/mL Urine Protein Trace H (Negative) Ur Leukocyte Esterase Large H (Negative) Urine WBC 27 H (0-5) /hpf Amorphous Sediment Rare H (None) /hpf Urine Bacteria Occasional H (None) /hpf Urine Mucus Rare H (None) /hpf 05/03/21 05/03/21 05/03/21 Range/Units 13:47 16:39 19:56 Hgb (13.0-17.5) gm/dL Hct (39.0-53.0) % Sodium (137-145) mmol/L Chloride (98-107) mmol/L Carbon Dioxide (22-30) mmol/L BUN (9-20) mg/dL Creatinine (0.66-1.25) mg/dL Glucose (74-99) mg/dL Alkaline Phosphatase (38-126) U/L Troponin I 0.042 H* 0.043 H* 0.048 H* (0.000-0.034) ng/mL Urine Protein (Negative) Ur Leukocyte Esterase (Negative) Urine WBC (0-5) /hpf Amorphous Sediment (None) /hpf Urine Bacteria (None) /hpf Urine Mucus (None) /hpf 05/04/21 Range/Units 07:22 Hgb (13.0-17.5) gm/dL Hct (39.0-53.0) % Sodium (137-145) mmol/L Chloride 110 H (98-107) mmol/L Carbon Dioxide 17 L (22-30) mmol/L BUN (9-20) mg/dL Creatinine 0.59 L (0.66-1.25) mg/dL Glucose 100 H (74-99) mg/dL Alkaline Phosphatase (38-126) U/L Troponin I (0.000-0.034) ng/mL Urine Protein (Negative) Ur Leukocyte Esterase (Negative) Urine WBC (0-5) /hpf Amorphous Sediment (None) /hpf Urine Bacteria (None) /hpf Urine Mucus (None) /hpf Microbiology - Last 24 Hours (Table) 05/03/21 13:39 Urine Culture - Preliminary Urine,Voided Diabetes panel 05/03/21 05/04/21 Range/Units 13:13 07:22 Sodium 136 L 138 (137-145) mmol/L Potassium 5.0 4.8 (3.5-5.1) mmol/L Chloride 104 110 H (98-107) mmol/L Carbon Dioxide 22 17 L (22-30) mmol/L BUN 23 H 15 (9-20) mg/dL Creatinine 0.63 L 0.59 L (0.66-1.25) mg/dL Glucose 107 H 100 H (74-99) mg/dL Calcium 9.5 9.1 (8.4-10.2) mg/dL AST 31 (17-59) U/L ALT 21 (4-49) U/L Alkaline Phosphatase 168 H (38-126) U/L Total Protein 7.9 (6.3-8.2) g/dL Albumin 4.2 (3.5-5.0) g/dL Calcium panel 05/03/21 05/04/21 Range/Units 13:13 07:22 Calcium 9.5 9.1 (8.4-10.2) mg/dL Albumin 4.2 (3.5-5.0) g/dL Pituitary panel 05/03/21 05/04/21 Range/Units 13:13 07:22 Sodium 136 L 138 (137-145) mmol/L Potassium 5.0 4.8 (3.5-5.1) mmol/L Chloride 104 110 H (98-107) mmol/L Carbon Dioxide 22 17 L (22-30) mmol/L BUN 23 H 15 (9-20) mg/dL Creatinine 0.63 L 0.59 L (0.66-1.25) mg/dL Glucose 107 H 100 H (74-99) mg/dL Calcium 9.5 9.1 (8.4-10.2) mg/dL Adrenal panel 05/03/21 05/04/21 Range/Units 13:13 07:22 Sodium 136 L 138 (137-145) mmol/L Potassium 5.0 4.8 (3.5-5.1) mmol/L Chloride 104 110 H (98-107) mmol/L Carbon Dioxide 22 17 L (22-30) mmol/L BUN 23 H 15 (9-20) mg/dL Creatinine 0.63 L 0.59 L (0.66-1.25) mg/dL Glucose 107 H 100 H (74-99) mg/dL Calcium 9.5 9.1 (8.4-10.2) mg/dL Total Bilirubin 0.2 (0.2-1.3) mg/dL AST 31 (17-59) U/L ALT 21 (4-49) U/L Alkaline Phosphatase 168 H (38-126) U/L Total Protein 7.9 (6.3-8.2) g/dL Albumin 4.2 (3.5-5.0) g/dL
--- NOTE | 2021-05-04 13:10 | P.PN ---
Subjective This is a pleasant 60 male with past medical history of deep venous thrombosis, GERD, hypertension, seizure disorder, history of MS at age 39. Multiple infections including pneumonia and UTI. He has contractures in all extremities, status post PEG tube replacement Patient is poor historian and cannot provide information he was transferred from [facility] for abdominal pain and distention. He is nonverbal at baseline and bed bound and cannot provide information Patient also has a Stein catheter on presentation On admission he had a fever of 100.4. Vitals are stable. CBC is unremarkable. BMP and liver enzymes are unremarkable as well. Troponin is elevated at 0.043 Urinalysis is suspicious for infection EKG showed normal sinus rhythm at [address]-T changes KUB: Cartilage for fecal impaction with distended rectum with stool up to 8.7 cm with possible distal colonic distention as well just x-ray showing mild cardiomegaly with interstitial changes. Current it for possible CHF with mild pulmonary vascular congestion. Some patchy atelectasis Echocardiogram from 07/2020 showing ejection fraction of 60-65% 05/04/2021 Patient is awake and open eyes spontaneously, is a little bit more sleepy this morning than yesterday. Vitals are stable and he is saturating 92% to 98% on 2 L. Heart rate 92, blood pressure 138/79, he had a fever of 100.4 yesterday but since then he's afebrile. Patient PEG tube is in place with known 2 previous started this morning. Her remaining so on ceftriaxone which was changed today to Zosyn as patient was little bit more tachypneic this morning and to rule out aspiration pneumonia. Also 1 time dose of Lasix IV 20 mg for pulmonary congestion. Patient breathing improved later on during the day. Surgery team on the case, patient already had a bowel movement and the recommend soap and enema, no surgical intervention and tube feeding can be restarted. Industrial Machine Assembler Renata to the patient, elevated troponin scissors not indicative of coronary artery disease, echocardiogram showing 55-60% with mild LVH, no further recommendation per manufacturing inspector Objective - Vital Signs Vital signs: Vital Signs Temp 97.5 F L 05/04/21 08:05 Pulse 92 05/04/21 11:50 Resp 18 05/04/21 11:50 BP 138/79 05/04/21 11:50 Pulse Ox 92 L 05/04/21 11:50 Intake & Output 05/03/21 05/04/21 05/04/21 18:59 06:59 18:59 Output Total 800 475 Balance -800 -475 Weight 72.575 kg 75 kg 75 kg Output: Urine 800 475 Other: # Bowel Movements 3 - Exam -GENERAL: The patient is is alert and awake and has good attention span, he follows with his eyes but he does not follows commands , not in any acute distress. Well developed, well nourished. HEENT: Pupils are round and equally reacting to light. EOMI. No scleral icterus. No conjunctival pallor. Normocephalic, atraumatic. No pharyngeal erythema. No thyromegaly. CARDIOVASCULAR: S1 and S2 present. No murmurs, rubs, or gallops. PULMONARY: Chest is clear to auscultation, no wheezing or crackles. -ABDOMEN: Soft, nontender, nondistended, normoactive bowel sounds. No palpable organomegaly. PEG tube is in place MUSCULOSKELETAL: No joint swelling or deformity. -EXTREMITIES: No cyanosis, clubbing, or pedal edema. Contractures of all 4 extremities NEUROLOGICAL: Gross neurological examination did not reveal any focal deficits. SKIN: No rashes. no petechiae. - Labs CBC & Chem 7: 05/04/21 07:22 05/04/21 07:22 Labs: Abnormal Lab Results - Last 24 Hours (Table) 05/03/21 05/03/21 05/03/21 Range/Units 13:13 13:13 13:39 Hgb 12.3 L (13.0-17.5) gm/dL Hct 37.9 L (39.0-53.0) % Sodium 136 L (137-145) mmol/L Chloride (98-107) mmol/L Carbon Dioxide (22-30) mmol/L BUN 23 H (9-20) mg/dL Creatinine 0.63 L (0.66-1.25) mg/dL Glucose 107 H (74-99) mg/dL Alkaline Phosphatase 168 H (38-126) U/L Troponin I (0.000-0.034) ng/mL Urine Protein Trace H (Negative) Ur Leukocyte Esterase Large H (Negative) Urine WBC 27 H (0-5) /hpf Amorphous Sediment Rare H (None) /hpf Urine Bacteria Occasional H (None) /hpf Urine Mucus Rare H (None) /hpf 05/03/21 05/03/21 05/03/21 Range/Units 13:47 16:39 19:56 Hgb (13.0-17.5) gm/dL Hct (39.0-53.0) % Sodium (137-145) mmol/L Chloride (98-107) mmol/L Carbon Dioxide (22-30) mmol/L BUN (9-20) mg/dL Creatinine (0.66-1.25) mg/dL Glucose (74-99) mg/dL Alkaline Phosphatase (38-126) U/L Troponin I 0.042 H* 0.043 H* 0.048 H* (0.000-0.034) ng/mL Urine Protein (Negative) Ur Leukocyte Esterase (Negative) Urine WBC (0-5) /hpf Amorphous Sediment (None) /hpf Urine Bacteria (None) /hpf Urine Mucus (None) /hpf 05/04/21 Range/Units 07:22 Hgb (13.0-17.5) gm/dL Hct (39.0-53.0) % Sodium (137-145) mmol/L Chloride 110 H (98-107) mmol/L Carbon Dioxide 17 L (22-30) mmol/L BUN (9-20) mg/dL Creatinine 0.59 L (0.66-1.25) mg/dL Glucose 100 H (74-99) mg/dL Alkaline Phosphatase (38-126) U/L Troponin I (0.000-0.034) ng/mL Urine Protein (Negative) Ur Leukocyte Esterase (Negative) Urine WBC (0-5) /hpf Amorphous Sediment (None) /hpf Urine Bacteria (None) /hpf Urine Mucus (None) /hpf Microbiology - Last 24 Hours (Table) 05/03/21 13:39 Urine Culture - Preliminary Urine,Voided Assessment and Plan Assessment: Acute urinary tract infection , versus pneumonia aspiration elevated troponin, not indicative of cardiac disease fecal impaction with dilated bowel loops , improved with the impaction and enema altered mental status, most likely metabolic encephalopathy secondary to above History of GERD Hypertension History of seizure disorder Of MS at age 39 with multiple limb contractures History of multiple infections including UTI and pneumonia Post PEG tube placement History of DVT History of GERD Hypertension multiple sclerosis 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 Continue same treatment. Continue with symptomatic treatment. Resume home medication. Monitor lytes and vitals. DVT and GI prophylaxis. Further recommendations as per clinical course of the patient DVT prophylaxis: Subcutaneous heparin GI Prophylaxis: Pepcid Prognosis is guarded
[2021-05-04] MEDS: PIPERACILLIN-TAZOBACTAM 3.375 GM in SODIUM CHLORIDE 0.9% 100 ML IVPB SCH (16:44)
[2021-05-04 16:56] LABS: Glucose,Whole Blood 104 mg/dL (75-99)
[2021-05-05 00:27] LABS: Glucose,Whole Blood 106 mg/dL (75-99)
[2021-05-05] MEDS: PIPERACILLIN-TAZOBACTAM 3.375 GM in SODIUM CHLORIDE 0.9% 100 ML IVPB SCH ×3 (03:13→15:35)
[2021-05-05 06:26] LABS: ALT 15 U/L (4-49); AST 20 U/L (17-59); African American GFR (CKD) >90 (>60 ml/min/1.73 sqM); Alkaline Phosphatase 110 U/L (38-126); Anion Gap 10 mmol/L; Blood Urea Nitrogen 23 mg/dL (9-20); Calcium 8.5 mg/dL (8.4-10.2); Carbon Dioxide 20 mmol/L (22-30); Chloride 108 mmol/L (98-107); Glucose 100 mg/dL (74-99); Non-African American GFR(CKD) >90 (>60 ml/min/1.73 sqM); Sodium 138 mmol/L (137-145); Total Bilirubin 0.2 mg/dL (0.2-1.3); Total Protein 6.2 g/dL (6.3-8.2)
[2021-05-05] MEDS: BACLOFEN 10 MG TAB PEG/G-TUBE SCH ×3 (06:29→21:28)
[2021-05-05] MEDS: OXYBUTYNIN CHLORIDE 5 MG TAB PEG/G-TUBE SCH ×3 (06:29→21:29)
[2021-05-05 06:30] LABS: Glucose,Whole Blood 95 mg/dL (75-99)
--- NOTE | 2021-05-05 08:00 | XR ---
EXAMINATION TYPE: XR chest 1V DATE OF EXAM: 05/05/2021 CLINICAL HISTORY: Difficulty breathing progress study. TECHNIQUE: Single AP portable upright view of the chest is obtained. COMPARISON: Chest x-ray from 2 days earlier and older studies. FINDINGS: Chronic parenchymal changes and low lung volumes redemonstrated without suspicious new foc al airspace opacity, pleural effusion, or pneumothorax seen. Cardiac silhouette size is stable and wi thin normal limits. Old left rib fracture deformities redemonstrated. Osseous structures are deminera lized. IMPRESSION: Chronic changes without acute pulmonary process on current exam
--- NOTE | 2021-05-05 08:05 | XR ---
EXAMINATION TYPE: XR abdomen 1V DATE OF EXAM: 05/05/2021 7:50 AM CLINICAL HISTORY: Fecal impaction. TECHNIQUE: Two supine portable KUB images of the abdomen are obtained. COMPARISON: CT abdomen and pelvis December 01, 2020 FINDINGS: Overlying PEG tube is redemonstrated in nondistended stomach. Scattered gas seen in dominan t lesion nondistended small and large bowel loops. Slightly prominent gas-filled bowel loops in the c entral lower abdomen. Persistent mild to moderate diffuse colonic fecal prominence with dilated fecal filled rectum. Adjacent scattered pelvic phleboliths inferiorly. No significant interval change from one day earlier. Lung bases remain clear. Underlying scoliosis redemonstrated. Chronic deformity to the pelvis again s een along with old left hip nonunion fracture. IMPRESSION: Overall nonspecific bowel gas pattern redemonstrated. Continued mild to moderate diffuse colonic fecal stasis with more moderate to severe rectal fecal stasis or impaction. No significant ch eben from one day earlier.
[2021-05-05] MEDS: CHOLECALCIFEROL 25 MCG (1000 IU) TABLET PEG/G-TUBE SCH (08:12)
[2021-05-05] MEDS: ASPIRIN 81 MG PEG/G-TUBE SCH (08:12)
[2021-05-05] MEDS: FAMOTIDINE 20 MG/2 ML VIAL IV SCH ×2 (08:12→21:28)
[2021-05-05] MEDS: LACTULOSE 20 GM/30 ML CUP PEG/G-TUBE SCH ×2 (08:12→21:27)
[2021-05-05] MEDS: carBAMazepine 200 MG TAB PEG/G-TUBE SCH ×2 (08:12→21:28)
[2021-05-05] MEDS: METOPROLOL TARTRATE 25 MG TAB PEG/G-TUBE SCH ×2 (08:12→21:28)
[2021-05-05] MEDS: HEPARIN SODIUM,PORCINE/PF 5,000 UNIT/0.5 ML SYRINGE SQ SCH ×2 (08:13→21:27)
[2021-05-05] MEDS: LACOSAMIDE 150 MG TABLET PEG/G-TUBE SCH ×2 (08:53→21:32)
--- NOTE | 2021-05-05 10:50 | P.PN ---
Subjective This is a pleasant 60 male with past medical history of deep venous thrombosis, GERD, hypertension, seizure disorder, history of MS at age 39. Multiple infections including pneumonia and UTI. He has contractures in all extremities, status post PEG tube replacement Patient is poor historian and cannot provide information he was transferred from [facility] for abdominal pain and distention. He is nonverbal at baseline and bed bound and cannot provide information Patient also has a Stein catheter on presentation On admission he had a fever of 100.4. Vitals are stable. CBC is unremarkable. BMP and liver enzymes are unremarkable as well. Troponin is elevated at 0.043 Urinalysis is suspicious for infection EKG showed normal sinus rhythm at [address]-T changes KUB: Cartilage for fecal impaction with distended rectum with stool up to 8.7 cm with possible distal colonic distention as well just x-ray showing mild cardiomegaly with interstitial changes. Current it for possible CHF with mild pulmonary vascular congestion. Some patchy atelectasis Echocardiogram from 07/2020 showing ejection fraction of 60-65% 05/04/2021 Patient is awake and open eyes spontaneously, is a little bit more sleepy this morning than yesterday. Vitals are stable and he is saturating 92% to 98% on 2 L. Heart rate 92, blood pressure 138/79, he had a fever of 100.4 yesterday but since then he's afebrile. Patient PEG tube is in place with known 2 previous started this morning. Her remaining so on ceftriaxone which was changed today to Zosyn as patient was little bit more tachypneic this morning and to rule out aspiration pneumonia. Also 1 time dose of Lasix IV 20 mg for pulmonary congestion. Patient breathing improved later on during the day. Surgery team on the case, patient already had a bowel movement and the recommend soap and enema, no surgical intervention and tube feeding can be restarted. Tumbler Machine Operator Helper Renata to the patient, elevated troponin scissors not indicative of coronary artery disease, echocardiogram showing 55-60% with mild LVH, no further recommendation per process control supervisor 05/05/2021 Patient is less lethargic today, more awake and has good attention span. He looks comfortable not in distress. His breathing quietly. He is 96% on room air and chest x-ray showing chronic changes with no acute findings. Name is hemodynamically stable. No more fevers since admission. BMP from today is unremarkable. Abdominal x-ray showing [id number] diffuse colonic fecal stasis and moderate to severe rectal fecal impaction, surgery Team on the case, we recommend to continue tube feeding for now. Abdomen soft with no tenderness. No nausea vomiting. Keep head of bed More than 45 Urine culture is growing gram-negative bacilli. Patient is currently covered with Zosyn from the sensitivity Objective - Vital Signs Vital signs: Vital Signs Temp 98.3 F 05/05/21 08:09 Pulse 92 05/05/21 08:09 Resp 18 05/05/21 08:09 BP 118/74 05/05/21 08:09 Pulse Ox 96 05/05/21 08:09 Intake & Output 05/04/21 05/05/21 05/05/21 18:59 06:59 18:59 Intake Total 245 630 Output Total 825 Balance -580 630 Weight 75 kg 73.5 kg Intake: Tube Feeding 245 630 Output: Urine 825 Other: Voiding Method Indwelling Catheter # Bowel Movements 3 - Exam -GENERAL: The patient is is alert and awake and has good attention span, he follows with his eyes but he does not follows commands , not in any acute distress. Well developed, well nourished. HEENT: Pupils are round and equally reacting to light. EOMI. No scleral icterus. No conjunctival pallor. Normocephalic, atraumatic. No pharyngeal erythema. No thyromegaly. CARDIOVASCULAR: S1 and S2 present. No murmurs, rubs, or gallops. PULMONARY: Chest is clear to auscultation, no wheezing or crackles. -ABDOMEN: Soft, nontender, nondistended, normoactive bowel sounds. No palpable organomegaly. PEG tube is in place MUSCULOSKELETAL: No joint swelling or deformity. -EXTREMITIES: No cyanosis, clubbing, or pedal edema. Contractures of all 4 extremities NEUROLOGICAL: Gross neurological examination did not reveal any focal deficits. SKIN: No rashes. no petechiae. - Labs CBC & Chem 7: 05/04/21 07:22 05/05/21 05:59 Labs: Abnormal Lab Results - Last 24 Hours (Table) 05/04/21 05/05/21 05/05/21 Range/Units 16:51 00:27 05:59 Chloride 108 H (98-107) mmol/L Carbon Dioxide 20 L (22-30) mmol/L BUN 23 H (9-20) mg/dL Glucose 100 H (74-99) mg/dL POC Glucose (mg/dL) 104 H 106 H (75-99) mg/dL Total Protein 6.2 L (6.3-8.2) g/dL Albumin 3.0 L (3.5-5.0) g/dL Microbiology - Last 24 Hours (Table) 05/03/21 13:39 Urine Culture - Preliminary Urine,Voided Gram Neg Bacilli Gram Neg Bacilli#2 05/03/21 13:39 Blood Culture - Preliminary Blood No Growth after 24 hours 05/03/21 13:39 Blood Culture - Preliminary Blood No Growth after 24 hours Assessment and Plan Assessment: Acute urinary tract infection , secondary to gram-negative bacilli 2 elevated troponin, not indicative of cardiac disease fecal impaction with dilated bowel loops , improved with the impaction and enema. Still have persistent fecal impaction. Saturating on the case altered mental status, most likely metabolic encephalopathy secondary to above. 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 Follow-up final results of urine culture Continue tube feeding per surgery team who recommended no surgical intervention and enema for his fecal impaction. Continue with following surgical team recommendation Tumbler Machine Operator Helper on the case for elevated troponin Status post disimpaction in the emergency room, follow-up KUB pedal with more than 45. Labs and medication were reviewed.. Continue same treatment. Continue with symptomatic treatment. Resume home medication. Monitor lytes and vitals. DVT and GI prophylaxis. Further recommendations as per clinical course of the patient DVT prophylaxis: Subcutaneous heparin GI Prophylaxis: Pepcid Prognosis is guarded
[2021-05-05 11:51] LABS: Glucose,Whole Blood 104 mg/dL (75-99)
--- NOTE | 2021-05-05 12:56 | P.PN ---
Subjective Progress Note Date: 05/05/21 CHIEF COMPLAINT: Abdominal distention HISTORY OF PRESENT ILLNESS: Surgery is following regards to patient's fecal impaction. He had 4 bowel movements yesterday. Abdominal x-ray from this morning shows overall nonspecific bowel gas pattern redemonstrated. Continued mild to moderate diffuse colonic fecal stasis with more moderate to severe rectal fecal stasis or impaction. No significant change from one day earlier. Patient is tolerating tube feeds. No residual. No nausea or vomiting reported. Patient also on antibiotics for UTI. Afebrile. PHYSICAL EXAM: VITAL SIGNS: Reviewed. GENERAL: Well-developed in no acute distress. HEENT: No sclera icterus. Extraocular movements grossly intact. Moist buccal mucosa. Head is atraumatic, normocephalic. ABDOMEN: Soft. Nondistended. Nontender. NEUROLOGIC: Nonverbal ASSESSMENT: 1. Fecal impaction with distended rectum PLAN: -No surgical intervention planned -We'll order another soap morgan enema -Continue lactulose Physician Cellophane Casting Machine Repairer note has been reviewed by physician. Signing provider agrees with the documented findings, assessment, and plan of care. Objective - Vital Signs Vital signs: Vital Signs Temp 97.8 F 05/05/21 12:02 Pulse 90 05/05/21 12:02 Resp 16 05/05/21 12:02 BP 103/61 05/05/21 12:02 Pulse Ox 95 05/05/21 12:02 Intake & Output 05/04/21 05/05/21 05/05/21 18:59 06:59 18:59 Intake Total 245 630 Output Total 825 Balance -580 630 Weight 75 kg 73.5 kg Intake: Tube Feeding 245 630 Output: Urine 825 Other: Voiding Method Indwelling Catheter # Bowel Movements 3 - Labs CBC & Chem 7: 05/04/21 07:22 05/05/21 05:59 Labs: Abnormal Lab Results - Last 24 Hours (Table) 05/04/21 05/05/21 05/05/21 Range/Units 16:51 00:27 05:59 Chloride 108 H (98-107) mmol/L Carbon Dioxide 20 L (22-30) mmol/L BUN 23 H (9-20) mg/dL Glucose 100 H (74-99) mg/dL POC Glucose (mg/dL) 104 H 106 H (75-99) mg/dL Total Protein 6.2 L (6.3-8.2) g/dL Albumin 3.0 L (3.5-5.0) g/dL 05/05/21 Range/Units 11:50 Chloride (98-107) mmol/L Carbon Dioxide (22-30) mmol/L BUN (9-20) mg/dL Glucose (74-99) mg/dL POC Glucose (mg/dL) 104 H (75-99) mg/dL Total Protein (6.3-8.2) g/dL Albumin (3.5-5.0) g/dL Microbiology - Last 24 Hours (Table) 05/03/21 13:39 Urine Culture - Preliminary Urine,Voided Gram Neg Bacilli Gram Neg Bacilli#2 05/03/21 13:39 Blood Culture - Preliminary Blood No Growth after 24 hours 05/03/21 13:39 Blood Culture - Preliminary Blood No Growth after 24 hours
--- NOTE | 2021-05-05 14:39 | CDI ---
Documentation Clarification Form Date: 05/05/2021 02:29:52 PM From: Jaja [place] CCS, CCDS Admit Date: 05/03/2021 03:51:00 PM Patient Name: Chris Marvin Visit Number: [id number] Discharge Date: ATTENTION: The Clinical Documentation Specialists (CDI) and [facility] Coding Staff appreciate your assistance in clarifying documentation. Please respond to the clarification below the line at the bottom and electronically sign. The CDI & [facility] Coding staff will review the response and follow-up if needed. Please note: Queries are made part of the Legal Health Record. If you have any questions, please contact the author of this message via ITS. Dr. Avila Ireland or Dr. Rekha Schmidt: This patient is admitted with a UTI per the 05/03 H/P with positive urine cultures and per the 05/03 H/P & Nursing Documentation has a Chronic Aggarwal Catheter. Additional clarification regarding the etiology of the UTI is requested. History/Risk Factors per the 05/03 H/P: DVT, GERD, Hypertension, Seizure Disorder, MS, Multiple infections including Pneumonia & UTIs, Contractures in all extremities, PEG tube, Nonverbal & Bedbound. Clinical Indicators: Presented to the ED on 05/03 with Abdominal Pain & Distention and Altered Mental Status ED Clinical Impression: Elevated Troponin, Impaction of Colon, UTI 05/03 VS: T 97.0, P 78, R 18 - 20, BP 131/87, PO 96 RA, BMI: 24.6 05/03 LAB: Hgb 12.3, Na 136, BUN 23, Cr 0.63, Glucose 107, Troponin: 0.042, 0.048 05/03 UA: Cloudy, Trace Protein, Positive Nitrite, Large Esterase, WBC 27 05/03 Urine Culture: (Preliminary) Gram Neg Bacilli Treatment: IV Rocephin 1,000 mg x1, IV Na Cl 1,000 mls @ 75 mls/hr q13H. 05/04: IV Zosyn/Tazobactam 100 mls @ 200 mls/hr x1, IV Rocephin Please clarify the etiology of the UTI, if known: [ ] UTI related to Aggarwal catheter [ ] UTI not related to Aggarwal catheter [ ] Other condition, please specify [ ] Unable to determine (Template Last Revised: November 2020) 05/10 Query response documented in the 05/09 Attending Physician Progress Note: Dr. Carey: Acute Urinary tract infection, secondary to chronic indwelling aggarwal catheter. (CDI: MA) MTDD
[2021-05-05 16:59] LABS: Glucose,Whole Blood 103 mg/dL (75-99)
[2021-05-06] MEDS: PIPERACILLIN-TAZOBACTAM 3.375 GM in SODIUM CHLORIDE 0.9% 100 ML IVPB SCH ×4 (02:06→23:46)
[2021-05-06] MEDS: OXYBUTYNIN CHLORIDE 5 MG TAB PEG/G-TUBE SCH ×3 (06:20→20:21)
[2021-05-06] MEDS: BACLOFEN 10 MG TAB PEG/G-TUBE SCH ×3 (06:21→20:22)
[2021-05-06 06:42] LABS: Glucose,Whole Blood 110 mg/dL (75-99)
[2021-05-06] MEDS: METOPROLOL TARTRATE 25 MG TAB PEG/G-TUBE SCH ×2 (08:00→20:21)
[2021-05-06] MEDS: LACTULOSE 20 GM/30 ML CUP PEG/G-TUBE SCH ×2 (08:00→20:22)
[2021-05-06] MEDS: HEPARIN SODIUM,PORCINE/PF 5,000 UNIT/0.5 ML SYRINGE SQ SCH ×2 (08:01→20:22)
[2021-05-06] MEDS: ASPIRIN 81 MG PEG/G-TUBE SCH (08:01)
[2021-05-06] MEDS: carBAMazepine 200 MG TAB PEG/G-TUBE SCH ×2 (08:01→20:22)
[2021-05-06] MEDS: CHOLECALCIFEROL 25 MCG (1000 IU) TABLET PEG/G-TUBE SCH (08:01)
[2021-05-06] MEDS: FAMOTIDINE 20 MG/2 ML VIAL IV SCH ×2 (08:01→20:22)
[2021-05-06] MEDS: LACOSAMIDE 150 MG TABLET PEG/G-TUBE SCH ×2 (08:43→20:21)
[2021-05-06 09:32] LABS: Basophils % (A) 0 %; Eosinophils # (A) 0.5 k/uL (0-0.7); Eosinophils % (A) 5 %; HCT 40.6 % (39.0-53.0); HGB 12.7 gm/dL (13.0-17.5); Hypochromasia Moderate; Lymphocytes # (A) 0.9 k/uL (1.0-4.8); Lymphocytes % (A) 10 %; MCHC 31.4 g/dL (31.0-37.0); MCV 86.2 fL (80.0-100.0); Mean Platelet Volume 11.5; Monocytes # (A) 0.6 k/uL (0-1.0); Monocytes % (A) 6 %; Neutrophils # (A) 6.8 k/uL (1.3-7.7); Neutrophils % (A) 76 %; Platelet Count 246 k/uL (150-450); RBC 4.71 m/uL (4.30-5.90); RDW 15.4 % (11.5-15.5)
[2021-05-06 09:49] LABS: African American GFR (CKD) >90 (>60 ml/min/1.73 sqM); Anion Gap 9 mmol/L; Blood Urea Nitrogen 18 mg/dL (9-20); Calcium 8.6 mg/dL (8.4-10.2); Carbon Dioxide 22 mmol/L (22-30); Chloride 109 mmol/L (98-107); Glucose 136 mg/dL (74-99); Magnesium 1.9 mg/dL (1.6-2.3); Non-African American GFR(CKD) >90 (>60 ml/min/1.73 sqM); Sodium 140 mmol/L (137-145)
[2021-05-06 11:59] LABS: Glucose,Whole Blood 108 mg/dL (75-99)
[2021-05-06] MEDS ORDERED: PEG 3350-NA SULF,BICARB,CL/KCL 4,000 ML BOTTLE PO ONE (14:51)
--- NOTE | 2021-05-06 14:54 | P.PN ---
Subjective Progress Note Date: 05/06/21 CHIEF COMPLAINT: Abdominal distention HISTORY OF PRESENT ILLNESS: Surgery is following regards to patient's fecal impaction. Patient did have 2 bowel movements yesterday. He did receive soapsuds enema. Per nursing staff patient does have a hard time retaining the soap said. He is tolerating his tube feeds. No residual. No vomiting reported. Patient on antibiotics for UTI. Afebrile. WBC 9.0 hemoglobin 12.7 PHYSICAL EXAM: VITAL SIGNS: Reviewed. GENERAL: Well-developed in no acute distress. HEENT: No sclera icterus. Extraocular movements grossly intact. Moist buccal mucosa. Head is atraumatic, normocephalic. ABDOMEN: Soft. Distended. Nontender. NEUROLOGIC: Nonverbal ASSESSMENT: 1. Fecal impaction with distended rectum PLAN: -No surgical intervention planned -We'll give GoLYTELY through PEG tube -Continue lactulose -Repeat abdominal x-ray on Sunday Physician Brisket Puller note has been reviewed by physician. Signing provider agrees with the documented findings, assessment, and plan of care. Objective - Vital Signs Vital signs: Vital Signs Temp 98.0 F 05/06/21 12:16 Pulse 86 05/06/21 13:08 Resp 18 05/06/21 13:08 BP 129/84 05/06/21 12:16 Pulse Ox 97 05/06/21 12:16 Intake & Output 05/05/21 05/06/21 05/06/21 18:59 06:59 18:59 Intake Total 560 Output Total 925 Balance -365 Weight 75 kg 75 kg Intake: Oral 0 Tube Feeding 560 Output: Urine 925 Other: Voiding Method Indwelling Catheter Indwelling Catheter Indwelling Catheter # Bowel Movements 2 - Labs CBC & Chem 7: 05/06/21 08:14 05/06/21 09:08 Labs: Abnormal Lab Results - Last 24 Hours (Table) 05/05/21 05/06/21 05/06/21 Range/Units 16:58 06:28 08:14 Hgb 12.7 L (13.0-17.5) gm/dL Lymphocytes # 0.9 L (1.0-4.8) k/uL Chloride (98-107) mmol/L Creatinine (0.66-1.25) mg/dL Glucose (74-99) mg/dL POC Glucose (mg/dL) 103 H 110 H (75-99) mg/dL 05/06/21 05/06/21 Range/Units 09:08 11:57 Hgb (13.0-17.5) gm/dL Lymphocytes # (1.0-4.8) k/uL Chloride 109 H (98-107) mmol/L Creatinine 0.58 L (0.66-1.25) mg/dL Glucose 136 H (74-99) mg/dL POC Glucose (mg/dL) 108 H (75-99) mg/dL Microbiology - Last 24 Hours (Table) 05/03/21 13:39 Urine Culture - Final Urine,Voided Pseudomonas aeruginosa Morganella morganii 05/03/21 13:39 Blood Culture - Preliminary Blood No Growth after 48 hours 05/03/21 13:39 Blood Culture - Preliminary Blood No Growth after 48 hours
--- NOTE | 2021-05-06 17:58 | P.PN ---
Subjective Progress Note Date: 05/06/21 Principal diagnosis: Acute urinary tract infection , secondary to gram-negative bacilli 2 Elevated troponin, not indicative of cardiac disease Fecal impaction with dilated bowel loops , improved with the impaction and enema. Still have persistent fecal impaction. Saturating on the case Altered mental status, most likely metabolic encephalopathy 60 male with past medical history of deep venous thrombosis, GERD, hypertension, seizure disorder, history of MS at age 39. Multiple infections including pneumonia and UTI. He has contractures in all extremities, status post PEG tube replacement Patient is poor historian and cannot provide information he was transferred from [facility] for abdominal pain and distention. He is nonverbal at baseline and bed bound and cannot provide information Patient also has a Stein catheter on presentation On admission he had a fever of 100.4. Vitals are stable. CBC is unremarkable. BMP and liver enzymes are unremarkable as well. Troponin is elevated at 0.043 Urinalysis is suspicious for infection EKG showed normal sinus rhythm at [address]-T changes KUB: Cartilage for fecal impaction with distended rectum with stool up to 8.7 cm with possible distal colonic distention as well just x-ray showing mild cardiomegaly with interstitial changes. Current it for possible CHF with mild pulmonary vascular congestion. Some patchy atelectasis Echocardiogram from 07/2020 showing ejection fraction of 60-65% Objective - Vital Signs Vital signs: Vital Signs Temp 98.0 F 05/06/21 12:16 Pulse 86 05/06/21 12:16 Resp 18 05/06/21 12:16 BP 129/84 05/06/21 12:16 Pulse Ox 97 05/06/21 12:16 Intake & Output 05/05/21 05/06/21 05/06/21 18:59 06:59 18:59 Intake Total 560 Output Total 925 Balance -365 Weight 75 kg 75 kg Intake: Oral 0 Tube Feeding 560 Output: Urine 925 Other: Voiding Method Indwelling Catheter Indwelling Catheter Indwelling Catheter # Bowel Movements 2 - Exam -GENERAL: The patient is is alert and awake and has good attention span, he follows with his eyes but he does not follows commands , not in any acute distress. Well developed, well nourished. HEENT: Pupils are round and equally reacting to light. EOMI. No scleral icterus. No conjunctival pallor. Normocephalic, atraumatic. No pharyngeal erythema. No thyromegaly. CARDIOVASCULAR: S1 and S2 present. No murmurs, rubs, or gallops. PULMONARY: Chest is clear to auscultation, no wheezing or crackles. -ABDOMEN: Soft, nontender, nondistended, normoactive bowel sounds. No palpable organomegaly. PEG tube is in place MUSCULOSKELETAL: No joint swelling or deformity. -EXTREMITIES: No cyanosis, clubbing, or pedal edema. Contractures of all 4 extremities NEUROLOGICAL: Gross neurological examination did not reveal any focal deficits. SKIN: No rashes. no petechiae. - Labs CBC & Chem 7: 05/06/21 08:14 05/06/21 09:08 Labs: Abnormal Lab Results - Last 24 Hours (Table) 05/05/21 05/06/21 05/06/21 Range/Units 16:58 06:28 08:14 Hgb 12.7 L (13.0-17.5) gm/dL Lymphocytes # 0.9 L (1.0-4.8) k/uL Chloride (98-107) mmol/L Creatinine (0.66-1.25) mg/dL Glucose (74-99) mg/dL POC Glucose (mg/dL) 103 H 110 H (75-99) mg/dL 05/06/21 05/06/21 Range/Units 09:08 11:57 Hgb (13.0-17.5) gm/dL Lymphocytes # (1.0-4.8) k/uL Chloride 109 H (98-107) mmol/L Creatinine 0.58 L (0.66-1.25) mg/dL Glucose 136 H (74-99) mg/dL POC Glucose (mg/dL) 108 H (75-99) mg/dL Microbiology - Last 24 Hours (Table) 05/03/21 13:39 Urine Culture - Final Urine,Voided Pseudomonas aeruginosa Morganella morganii 05/03/21 13:39 Blood Culture - Preliminary Blood No Growth after 48 hours 05/03/21 13:39 Blood Culture - Preliminary Blood No Growth after 48 hours Assessment and Plan Assessment: Acute urinary tract infection , secondary to gram-negative bacilli 2 elevated troponin, not indicative of cardiac disease fecal impaction with dilated bowel loops , improved with the impaction and en estrella. Still have persistent fecal impaction. Saturating on the case altered mental status, most likely metabolic encephalopathy secondary to above. 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 Follow-up final results of urine culture Continue tube feeding per surgery team who recommended no surgical intervention and enema for his fecal impaction. Continue with following surgical team recommendation [employer] Administrator on the case for elevated troponin Status post disimpaction in the emergency room, follow-up KUB pedal with more than 45. Labs and medication were reviewed.. Continue same treatment. Continue with symptomatic treatment. Resume home medication. Monitor lytes and vitals. DVT and GI prophylaxis. Further recommendations as per clinical course of the patient DVT prophylaxis: Subcutaneous heparin GI Prophylaxis: Pepcid Prognosis is guarded
[2021-05-06 18:04] LABS: Glucose,Whole Blood 100 mg/dL (75-99)
[2021-05-06] MEDS: SCOPOLAMINE 1.5MG/72HR PATCH TRANSDERM SCH (20:21)
[2021-05-06] MEDS: ACETAMINOPHEN ORAL SUSP (PEDS) 3,840 MG/120 ML BOTTLE PEG/G-TUBE PRN (20:45)
[2021-05-07 00:17] LABS: Glucose,Whole Blood 114 mg/dL (75-99)
[2021-05-07 05:51] LABS: Glucose,Whole Blood 121 mg/dL (75-99)
[2021-05-07] MEDS: BACLOFEN 10 MG TAB PEG/G-TUBE SCH ×3 (06:17→21:34)
[2021-05-07] MEDS: OXYBUTYNIN CHLORIDE 5 MG TAB PEG/G-TUBE SCH ×3 (06:17→21:33)
[2021-05-07 07:17] LABS: African American GFR (CKD) >90 (>60 ml/min/1.73 sqM); Anion Gap 11 mmol/L; Blood Urea Nitrogen 17 mg/dL (9-20); Calcium 8.8 mg/dL (8.4-10.2); Carbon Dioxide 23 mmol/L (22-30); Chloride 105 mmol/L (98-107); Glucose 107 mg/dL (74-99); Non-African American GFR(CKD) >90 (>60 ml/min/1.73 sqM); Potassium 4.4 mmol/L (3.5-5.1); Sodium 139 mmol/L (137-145)
[2021-05-07] MEDS: PIPERACILLIN-TAZOBACTAM 3.375 GM in SODIUM CHLORIDE 0.9% 100 ML IVPB SCH ×3 (07:30→23:27)
[2021-05-07 07:52] LABS: Basophils % (A) 0 %; Eosinophils # (A) 0.5 k/uL (0-0.7); Eosinophils % (A) 8 %; HCT 36.7 % (39.0-53.0); HGB 11.7 gm/dL (13.0-17.5); Hypochromasia Slight; Lymphocytes # (A) 1.1 k/uL (1.0-4.8); Lymphocytes % (A) 16 %; MCV 84.2 fL (80.0-100.0); Mean Platelet Volume 8.8; Monocytes # (A) 0.5 k/uL (0-1.0); Monocytes % (A) 7 %; Neutrophils # (A) 4.5 k/uL (1.3-7.7); Neutrophils % (A) 66 %; Platelet Count 320 k/uL (150-450); RBC 4.36 m/uL (4.30-5.90); RDW 15.5 % (11.5-15.5); WBC 6.7 k/uL (3.8-10.6)
[2021-05-07] MEDS: ASPIRIN 81 MG PEG/G-TUBE SCH (09:35)
[2021-05-07] MEDS: FAMOTIDINE 20 MG/2 ML VIAL IV SCH ×2 (09:36→21:33)
[2021-05-07] MEDS: CHOLECALCIFEROL 25 MCG (1000 IU) TABLET PEG/G-TUBE SCH (09:36)
[2021-05-07] MEDS: HEPARIN SODIUM,PORCINE/PF 5,000 UNIT/0.5 ML SYRINGE SQ SCH ×2 (09:36→21:33)
[2021-05-07] MEDS: LACOSAMIDE 150 MG TABLET PEG/G-TUBE SCH ×2 (09:37→21:33)
[2021-05-07] MEDS: METOPROLOL TARTRATE 25 MG TAB PEG/G-TUBE SCH ×2 (10:42→21:33)
[2021-05-07] MEDS: carBAMazepine 200 MG TAB PEG/G-TUBE SCH ×2 (10:42→21:33)
[2021-05-07] MEDS: LACTULOSE 20 GM/30 ML CUP PEG/G-TUBE SCH ×2 (10:48→21:34)
[2021-05-07 11:43] LABS: Glucose,Whole Blood 111 mg/dL (75-99)
[2021-05-07 17:15] LABS: Glucose,Whole Blood 110 mg/dL (75-99)
--- NOTE | 2021-05-07 17:37 | P.PN ---
Subjective Progress Note Date: 05/07/21 CHIEF COMPLAINT: Abdominal pain HISTORY OF PRESENT ILLNESS: The patient is a 60-year-old male with multiple sclerosis and nonverbal who was admitted to the hospital 05/03/2021 for abdominal pain. He has multiple admissions for abdominal pain and fecal impactions. His current hospitalizations include fecal impaction of the rectum. He is on laxatives through his gastrostomy tube. ROS: No reports of nausea and vomiting. No bowel movements. No fevers or chills. No new chest pain. No productive sputum PHYSICAL EXAM: VITAL SIGNS: Reviewed CONSTITUTIONAL: Well developed and in no acute distress. EYES: Conjuctivae without sclera icterus. Extraocular movements grossly intact. HEAD, EARS, NOSE, THROAT: Moist buccal mucosa. Head is atraumatic, normocephalic. NECK: No gross thyroidomegaly. No jugular venous distention. RESPIRATORY: Non-labored respirations and equal bilateral excursions. CARDIOVASCULAR: Palpable 2+ radial pulses. Regular rate. Regular rhythm. ABDOMEN: No peritonitis. MUSCULOSKELETAL: No clubbing. No cyanosis. SKIN: Good skin turgor. Well perfused. NEUROLOGIC: Cranial nerves II through XII grossly intact. No focal or lateralizing signs. PSYCH: Flat affect. Nonverbal. CLINICAL LABS: White blood cell count normal at 6.7. STUDIES: Abdominal x-ray from 05/05/2021 demonstrated moderate retained stool along the ascending colon transverse colon and large fecal bolus of the rectum. This is my independent interpretation. ASSESSMENT: 1. Fecal impaction with fecal stasis PLAN: 1. Laxatives per gastrostomy tube 2. Recommend enemas Objective - Vital Signs Vital signs: Vital Signs Temp 98.8 F 05/07/21 12:59 Pulse 90 05/07/21 12:59 Resp 16 05/07/21 12:59 BP 128/71 05/07/21 12:59 Pulse Ox 96 05/07/21 12:59 Intake & Output 05/06/21 05/07/21 05/07/21 18:59 06:59 18:59 Intake Total 280 1280 560 Output Total 925 850 Balance -645 430 560 Weight 75 kg 75 kg Intake: Intake, IV Titration 100 Amount Piperacillin-Tazobactam 3 100 .375 gm In Sodium Chloride 0.9% 100 ml @ 25 mls/hr IVPB Q8HR [facility] Rx# :[id number] Oral 0 Tube Feeding 280 1120 560 Other 60 Output: Urine 925 850 Other: Voiding Method Indwelling Catheter Indwelling Catheter Indwelling Catheter # Bowel Movements 1 2 - Labs CBC & Chem 7: 05/07/21 06:12 05/07/21 06:12 Labs: Abnormal Lab Results - Last 24 Hours (Table) 05/06/21 05/07/21 05/07/21 Range/Units 18:02 00:15 05:50 Hgb (13.0-17.5) gm/dL Hct (39.0-53.0) % Creatinine (0.66-1.25) mg/dL Glucose (74-99) mg/dL POC Glucose (mg/dL) 100 H 114 H 121 H (75-99) mg/dL C-Reactive Protein (<1.0) mg/dL 05/07/21 05/07/21 05/07/21 Range/Units 06:12 06:12 11:41 Hgb 11.7 L (13.0-17.5) gm/dL Hct 36.7 L (39.0-53.0) % Creatinine 0.63 L (0.66-1.25) mg/dL Glucose 107 H (74-99) mg/dL POC Glucose (mg/dL) 111 H (75-99) mg/dL C-Reactive Protein 5.0 H (<1.0) mg/dL Microbiology - Last 24 Hours (Table) 05/03/21 13:39 Blood Culture - Preliminary Blood No Growth after 72 hours 05/03/21 13:39 Blood Culture - Preliminary Blood No Growth after 72 hours
[2021-05-07 23:41] LABS: Glucose,Whole Blood 95 mg/dL (75-99)
[2021-05-08] MEDS: OXYBUTYNIN CHLORIDE 5 MG TAB PEG/G-TUBE SCH ×3 (05:54→21:45)
[2021-05-08] MEDS: BACLOFEN 10 MG TAB PEG/G-TUBE SCH ×3 (05:55→21:45)
[2021-05-08 06:03] LABS: Glucose,Whole Blood 103 mg/dL (75-99)
[2021-05-08] MEDS: PIPERACILLIN-TAZOBACTAM 3.375 GM in SODIUM CHLORIDE 0.9% 100 ML IVPB SCH ×2 (07:41→16:00)
--- NOTE | 2021-05-08 09:14 | XR ---
EXAMINATION TYPE: XR abdomen 1V DATE OF EXAM: 05/08/2021 COMPARISON: 05/05/2021 INDICATION: Fecal impaction TECHNIQUE: Single view abdomen supine view FINDINGS: Colonic bowel gas is present throughout the abdomen. PEG tube is present midline. Previous fecal impa ction is resolved. No significant fecal retention is evident. Chronic left hip fractures again evident. Psoas margins are normal. No organomegaly is present. IMPRESSION: 1. Normal bowel gas pattern. No fecal impaction evident.
[2021-05-08] MEDS: LACTULOSE 20 GM/30 ML CUP PEG/G-TUBE SCH ×3 (09:44→21:55)
[2021-05-08] MEDS: LACOSAMIDE 150 MG TABLET PEG/G-TUBE SCH ×2 (09:45→21:44)
[2021-05-08] MEDS: carBAMazepine 200 MG TAB PEG/G-TUBE SCH ×2 (09:45→21:44)
[2021-05-08] MEDS: CHOLECALCIFEROL 25 MCG (1000 IU) TABLET PEG/G-TUBE SCH (09:45)
[2021-05-08] MEDS: HEPARIN SODIUM,PORCINE/PF 5,000 UNIT/0.5 ML SYRINGE SQ SCH ×2 (09:45→21:44)
[2021-05-08] MEDS: ASPIRIN 81 MG PEG/G-TUBE SCH (09:45)
[2021-05-08] MEDS: FAMOTIDINE 20 MG/2 ML VIAL IV SCH ×2 (09:45→21:43)
[2021-05-08] MEDS: METOPROLOL TARTRATE 25 MG TAB PEG/G-TUBE SCH ×2 (09:46→21:44)
[2021-05-08 11:25] LABS: Glucose,Whole Blood 111 mg/dL (75-99)
--- NOTE | 2021-05-08 12:20 | P.PN ---
Subjective Progress Note Date: 05/07/21 Principal diagnosis: Acute urinary tract infection , secondary to gram-negative bacilli 2 Elevated troponin, not indicative of cardiac disease Fecal impaction with dilated bowel loops , improved with the impaction and enema. Still have persistent fecal impaction. Saturating on the case Altered mental status, most likely metabolic encephalopathy 60 male with past medical history of deep venous thrombosis, GERD, hypertension, seizure disorder, history of MS at age 39. Multiple infections including pneumonia and UTI. He has contractures in all extremities, status post PEG tube replacement Patient is poor historian and cannot provide information he was transferred from [facility] for abdominal pain and distention. He is nonverbal at baseline and bed bound and cannot provide information Patient also has a Stein catheter on presentation On admission he had a fever of 100.4. Vitals are stable. CBC is unremarkable. BMP and liver enzymes are unremarkable as well. Troponin is elevated at 0.043 Urinalysis is suspicious for infection EKG showed normal sinus rhythm at [address]-T changes KUB: Cartilage for fecal impaction with distended rectum with stool up to 8.7 cm with possible distal colonic distention as well just x-ray showing mild cardiomegaly with interstitial changes. Current it for possible CHF with mild pulmonary vascular congestion. Some patchy atelectasis Echocardiogram from 07/2020 showing ejection fraction of 60-65% 05/07/2021 Patient is seen and evaluated; members at bedside; opens eyes on verbal stimulation; patient discussed with nursing staff and no reports of nausea or vomiting; patient hasn't had any Vital signs are reviewed and are stable Lab review reveals a white blood count of 6.7, hemoglobin 11.7 and hematocrit 36.7, sodium 139, potassium 4.4, BUN/creatinine of 17/0.63 General surgery on board for fecal impaction with fecal stasis; recommending to continue laxatives per gastrostomy tube and enemas Objective - Vital Signs Vital signs: Vital Signs Temp 98.8 F 05/07/21 12:59 Pulse 90 05/07/21 12:59 Resp 16 05/07/21 12:59 BP 128/71 05/07/21 12:59 Pulse Ox 96 05/07/21 12:59 Intake & Output 05/06/21 05/07/21 05/07/21 18:59 06:59 18:59 Intake Total 280 1280 1120 Output Total 925 850 Balance -611 294 2831 Weight 75 kg 75 kg Intake: Intake, IV Titration 100 Amount Piperacillin-Tazobactam 3 100 .375 gm In Sodium Chloride 0.9% 100 ml @ 25 mls/hr IVPB Q8HR [facility] Rx# :[id number] Oral 0 Tube Feeding 280 1120 1120 Other 60 Output: Urine 925 850 Other: Voiding Method Indwelling Catheter Indwelling Catheter Indwelling Catheter # Bowel Movements 1 2 - Exam -GENERAL: The patient is is alert and awake and has good attention span, he follows with his eyes but he does not follows commands , not in any acute di stress. Well developed, well nourished. HEENT: Pupils are round and equally reacting to light. EOMI. No scleral icterus. No conjunctival pallor. Normocephalic, atraumatic. No pharyngeal erythema. No thyromegaly. CARDIOVASCULAR: S1 and S2 present. No murmurs, rubs, or gallops. PULMONARY: Chest is clear to auscultation, no wheezing or crackles. -ABDOMEN: Soft, nontender, nondistended, normoactive bowel sounds. No palpable organomegaly. PEG tube is in place MUSCULOSKELETAL: No joint swelling or deformity. -EXTREMITIES: No cyanosis, clubbing, or pedal edema. Contractures of all 4 extremities NEUROLOGICAL: Gross neurological examination did not reveal any focal deficits. SKIN: No rashes. no petechiae. - Labs CBC & Chem 7: 05/07/21 06:12 05/07/21 06:12 Labs: Abnormal Lab Results - Last 24 Hours (Table) 05/06/21 05/07/21 05/07/21 Range/Units 18:02 00:15 05:50 Hgb (13.0-17.5) gm/dL Hct (39.0-53.0) % Creatinine (0.66-1.25) mg/dL Glucose (74-99) mg/dL POC Glucose (mg/dL) 100 H 114 H 121 H (75-99) mg/dL C-Reactive Protein (<1.0) mg/dL 05/07/21 05/07/21 05/07/21 Range/Units 06:12 06:12 11:41 Hgb 11.7 L (13.0-17.5) gm/dL Hct 36.7 L (39.0-53.0) % Creatinine 0.63 L (0.66-1.25) mg/dL Glucose 107 H (74-99) mg/dL POC Glucose (mg/dL) 111 H (75-99) mg/dL C-Reactive Protein 5.0 H (<1.0) mg/dL Microbiology - Last 24 Hours (Table) 05/03/21 13:39 Blood Culture - Preliminary Blood No Growth after 72 hours 05/03/21 13:39 Blood Culture - Preliminary Blood No Growth after 72 hours Assessment and Plan Assessment: Acute urinary tract infection , secondary to gram-negative bacilli 2 elevated troponin, not indicative of cardiac disease fecal impaction with dilated bowel loops , improved with the impaction and enema. Still have persistent fecal impaction. Saturating on the case altered mental status, most likely metabolic encephalopathy secondary to above. 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 Follow-up final results of urine culture Continue tube feeding per surgery team who recommended no surgical intervention and enema for his fecal impaction. 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 Labs and medication were reviewed.. Continue same treatment. Continue with symptomatic treatment. Resume home medication. Monitor lytes and vitals. DVT and GI prophylaxis. Further recommendations as per clinical course of the patient DVT prophylaxis: Subcutaneous heparin GI Prophylaxis: Pepcid Prognosis is guarded
--- NOTE | 2021-05-08 13:50 | P.PN ---
Subjective Progress Note Date: 05/08/21 CHIEF COMPLAINT: Abdominal pain HISTORY OF PRESENT ILLNESS: The patient is a 60-year-old male with multiple sclerosis and nonverbal who was admitted to the hospital 05/03/2021 for abdominal pain. He has multiple admissions for abdominal pain and fecal impactions. He is non-verbal and resting comfortably. He has multiple daily bowel movements. ROS: No reports of nausea and vomiting. No fevers or chills. No new chest pain. No productive sputum PHYSICAL EXAM: VITAL SIGNS: Reviewed CONSTITUTIONAL: Well developed and in no acute distress. EYES: Conjuctivae without sclera icterus. Extraocular movements grossly intact. HEAD, EARS, NOSE, THROAT: Moist buccal mucosa. Head is atraumatic, n ormocephalic. NECK: No gross thyroidomegaly. No jugular venous distention. RESPIRATORY: Non-labored respirations and equal bilateral excursions. CARDIOVASCULAR: Palpable 2+ radial pulses. ABDOMEN: No peritonitis. MUSCULOSKELETAL: No clubbing. No cyanosis. SKIN: Good skin turgor. Well perfused. NEUROLOGIC: Cranial nerves II through XII grossly intact. No focal or lateralizing signs. PSYCH: Nonverbal. CLINICAL LABS: Blood sugar 111 and below. STUDIES: Abdominal x-ray from today independently reviewed by me shows moderate clearance of colon and rectum of stool. ASSESSMENT: 1. Fecal impaction with fecal stasis PLAN: 1. Continue bowel regimen Objective - Vital Signs Vital signs: Vital Signs Temp 98.1 F 05/08/21 11:34 Pulse 78 05/08/21 11:34 Resp 17 05/08/21 11:34 BP 134/80 05/08/21 11:34 Pulse Ox 97 05/08/21 11:34 Intake & Output 05/07/21 05/08/21 05/08/21 18:59 06:59 18:59 Intake Total 1680 1680 1120 Output Total 1600 Balance 1680 80 1120 Weight 76 kg Intake: Tube Feeding 1680 1680 1120 Output: Urine 1600 Other: Voiding Method Indwelling Catheter Indwelling Catheter Indwelling Catheter # Bowel Movements 2 1 - Labs CBC & Chem 7: 05/07/21 06:12 05/07/21 06:12 Labs: Abnormal Lab Results - Last 24 Hours (Table) 05/07/21 05/08/21 05/08/21 Range/Units 17:13 06:01 11:25 POC Glucose (mg/dL) 110 H 103 H 111 H (75-99) mg/dL Microbiology - Last 24 Hours (Table) 05/03/21 13:39 Blood Culture - Preliminary Blood No Growth after 96 hours 05/03/21 13:39 Blood Culture - Preliminary Blood No Growth after 96 hours Assessment and Plan (1) Constipation Current Visit: No Status: Acute Code(s): K59.00 - CONSTIPATION, UNSPECIFIED SNOMED Code(s): 79697865 (2) Fecal impaction in rectum Current Visit: No Status: Acute Code(s): K56.41 - FECAL IMPACTION SNOMED Code(s): 37113638 (3) Fecal impaction of colon Current Visit: No Status: Acute Code(s): K56.41 - FECAL IMPACTION SNOMED Code(s): 22589483 (4) Multiple sclerosis Current Visit: No Status: Acute Code(s): G35 - MULTIPLE SCLEROSIS SNOMED Code(s): 86995711
[2021-05-08 17:42] LABS: Glucose,Whole Blood 110 mg/dL (75-99)
--- NOTE | 2021-05-08 19:01 | P.PN ---
Subjective Progress Note Date: 05/08/21 Principal diagnosis: Acute urinary tract infection , secondary to gram-negative bacilli 2 Elevated troponin, not indicative of cardiac disease Fecal impaction with dilated bowel loops , improved with the impaction and enema. Still have persistent fecal impaction. Saturating on the case Altered mental status, most likely metabolic encephalopathy 60 male with past medical history of deep venous thrombosis, GERD, hypertension, seizure disorder, history of MS at age 39. Multiple infections including pneumonia and UTI. He has contractures in all extremities, status post PEG tube replacement Patient is poor historian and cannot provide information he was transferred from [facility] for abdominal pain and distention. He is nonverbal at baseline and bed bound and cannot provide information Patient also has a Stein catheter on presentation On admission he had a fever of 100.4. Vitals are stable. CBC is unremarkable. BMP and liver enzymes are unremarkable as well. Troponin is elevated at 0.043 Urinalysis is suspicious for infection EKG showed normal sinus rhythm at [address]-T changes KUB: Cartilage for fecal impaction with distended rectum with stool up to 8.7 cm with possible distal colonic distention as well just x-ray showing mild cardiomegaly with interstitial changes. Current it for possible CHF with mild pulmonary vascular congestion. Some patchy atelectasis Echocardiogram from 07/2020 showing ejection fraction of 60-65% 05/07/2021 Patient is seen and evaluated; members at bedside; opens eyes on verbal stimulation; patient discussed with nursing staff and no reports of nausea or vomiting; patient hasn't had any Vital signs are reviewed and are stable Lab review reveals a white blood count of 6.7, hemoglobin 11.7 and hematocrit 36.7, sodium 139, potassium 4.4, BUN/creatinine of 17/0.63 General surgery on board for fecal impaction with fecal stasis; recommending to continue laxatives per gastrostomy tube and enemas 05/08/2021 Patient is evaluated sitting up in bed; more alert and responsive; patient is having good bowel movements per nursing staff Vital signs are reviewed and remained stable; labs are stable; repeat abdominal x-ray reveals resolution of fecal impaction; general surgery on board and recommending to continue bowel regimen Objective - Vital Signs Vital signs: Vital Signs Temp 98.1 F 05/08/21 11:34 Pulse 78 05/08/21 11:34 Resp 17 05/08/21 11:34 BP 134/80 05/08/21 11:34 Pulse Ox 97 05/08/21 11:34 Intake & Output 05/07/21 05/08/21 05/08/21 18:59 06:59 18:59 Intake Total 1680 1680 1120 Output Total 1600 Balance 1680 80 1120 Weight 76 kg Intake: Tube Feeding 1680 1680 1120 Output: Urine 1600 Other: Voiding Method Indwelling Catheter Indwelling Catheter Indwelling Catheter # Bowel Movements 2 1 - Exam -GENERAL: The patient is is alert and awake and has good attention span, he follows with his eyes but he does not follows commands , not in any acute distress. Well developed, well nourished. HEENT: Pupils are round and equally reacting to light. EOMI. No scleral icterus. No conjunctival pallor. Normocephalic, atraumatic. No pharyngeal erythema. No thyromegaly. CARDIOVASCULAR: S1 and S2 present. No murmurs, rubs, or gallops. PULMONARY: Chest is clear to auscultation, no wheezing or crackles. -ABDOMEN: Soft, nontender, nondistended, normoactive bowel sounds. No palpable organomegaly. PEG tube is in place MUSCULOSKELETAL: No joint swelling or deformity. -EXTREMITIES: No cyanosis, clubbing, or pedal edema. Contractures of all 4 extremities NEUROLOGICAL: Gross neurological examination did not reveal any focal deficits. SKIN: No rashes. no petechiae. - Labs CBC & Chem 7: 05/07/21 06:12 05/07/21 06:12 Labs: Abnormal Lab Results - Last 24 Hours (Table) 05/07/21 05/08/21 05/08/21 Range/Units 17:13 06:01 11:25 POC Glucose (mg/dL) 110 H 103 H 111 H (75-99) mg/dL Microbiology - Last 24 Hours (Table) 05/03/21 13:39 Blood Culture - Preliminary Blood No Growth after 96 hours 05/03/21 13:39 Blood Culture - Preliminary Blood No Growth after 96 hours Assessment and Plan Assessment: Acute urinary tract infection , secondary to gram-negative bacilli 2 elevated troponin, not indicative of cardiac disease fecal impaction with dilated bowel loops , improved with the impaction and enema. Still have persistent fecal impaction. Saturating on the case altered mental status, most likely metabolic encephalopathy secondary to above. 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 Follow-up final results of urine culture Continue tube feeding per surgery team who recommended no surgical intervention and enema for his fecal impaction. 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 Labs and medication were reviewed.. Continue same treatment. Contin ue with symptomatic treatment. Resume home medication. Monitor lytes and vitals. DVT and GI prophylaxis. Further recommendations as per clinical course of the patient DVT prophylaxis: Subcutaneous heparin GI Prophylaxis: Pepcid Prognosis is guarded
[2021-05-08 23:52] LABS: Glucose,Whole Blood 103 mg/dL (75-99)
[2021-05-09] MEDS: PIPERACILLIN-TAZOBACTAM 3.375 GM in SODIUM CHLORIDE 0.9% 100 ML IVPB SCH ×2 (00:28→08:06)
[2021-05-09] MEDS: OXYBUTYNIN CHLORIDE 5 MG TAB PEG/G-TUBE SCH ×3 (05:59→21:21)
[2021-05-09] MEDS: BACLOFEN 10 MG TAB PEG/G-TUBE SCH ×3 (05:59→21:20)
[2021-05-09 06:24] LABS: Glucose,Whole Blood 102 mg/dL (75-99)
[2021-05-09] MEDS: FAMOTIDINE 20 MG/2 ML VIAL IV SCH ×2 (08:06→21:20)
[2021-05-09] MEDS: LACTULOSE 20 GM/30 ML CUP PEG/G-TUBE SCH ×2 (08:06→21:21)
[2021-05-09] MEDS: HEPARIN SODIUM,PORCINE/PF 5,000 UNIT/0.5 ML SYRINGE SQ SCH ×2 (08:06→21:20)
[2021-05-09] MEDS: METOPROLOL TARTRATE 25 MG TAB PEG/G-TUBE SCH ×2 (08:07→21:20)
[2021-05-09] MEDS: LACOSAMIDE 150 MG TABLET PEG/G-TUBE SCH ×2 (08:07→21:20)
[2021-05-09] MEDS: CHOLECALCIFEROL 25 MCG (1000 IU) TABLET PEG/G-TUBE SCH (08:07)
[2021-05-09] MEDS: carBAMazepine 200 MG TAB PEG/G-TUBE SCH ×2 (08:07→21:20)
[2021-05-09] MEDS: ASPIRIN 81 MG PEG/G-TUBE SCH (08:07)
[2021-05-09 12:35] LABS: Glucose,Whole Blood 99 mg/dL (75-99)
--- NOTE | 2021-05-09 12:45 | P.PN ---
Subjective Progress Note Date: 05/09/21 CHIEF COMPLAINT: Abdominal distention HISTORY OF PRESENT ILLNESS: Surgery is following in regards to patient's fecal impaction. Abdominal x-ray from yesterday shows a normal bowel gas pattern. No fecal impaction evident. Per nursing staff patient has been having bowel movements. He is tolerating his tube feeds. No vomiting. No residual reported. Afebrile PHYSICAL EXAM: VITAL SIGNS: Reviewed. GENERAL: Well-developed in no acute distress. HEENT: No sclera icterus. Extraocular movements grossly intact. Moist buccal mucosa. Head is atraumatic, normocephalic. ABDOMEN: Soft. Distended. Nontender. NEUROLOGIC: Nonverbal ASSESSMENT: 1. Fecal impaction with distended rectum resolved PLAN: -Patient can be discharged from surgical standpoint -No surgical intervention planned -Continue bowel regimen Physician Senior Strategy Manager note has been reviewed by physician. Signing provider agrees with the documented findings, assessment, and plan of care. Objective - Vital Signs Vital signs: Vital Signs Temp 98.6 F 05/09/21 05:00 Pulse 81 05/09/21 05:00 Resp 16 05/09/21 05:00 BP 146/84 05/09/21 05:00 Pulse Ox 96 05/09/21 05:00 Intake & Output 05/08/21 05/09/21 05/09/21 18:59 06:59 18:59 Intake Total 1680 1680 Output Total 1000 1000 Balance 680 680 Weight 77 kg Intake: Tube Feeding 1680 1680 Output: Urine 1000 1000 Other: Voiding Method Indwelling Catheter Indwelling Catheter Indwelling Catheter # Bowel Movements 2 1 - Labs CBC & Chem 7: 05/07/21 06:12 05/07/21 06:12 Labs: Abnormal Lab Results - Last 24 Hours (Table) 05/08/21 05/08/21 05/09/21 Range/Units 17:41 23:49 06:22 POC Glucose (mg/dL) 110 H 103 H 102 H (75-99) mg/dL Microbiology - Last 24 Hours (Table) 05/03/21 13:39 Blood Culture - Preliminary Blood No Growth after 120 hours 05/03/21 13:39 Blood Culture - Preliminary Blood No Growth after 120 hours
[2021-05-09 13:35] LABS: Basophils % (A) 1 %; Eosinophils # (A) 0.5 k/uL (0-0.7); Eosinophils % (A) 8 %; HCT 38.5 % (39.0-53.0); HGB 12.2 gm/dL (13.0-17.5); Lymphocytes # (A) 1.2 k/uL (1.0-4.8); Lymphocytes % (A) 19 %; MCH 26.5 pg (25.0-35.0); MCHC 31.8 g/dL (31.0-37.0); MCV 83.4 fL (80.0-100.0); Mean Platelet Volume 9.4; Monocytes # (A) 0.4 k/uL (0-1.0); Monocytes % (A) 7 %; Neutrophils # (A) 4.1 k/uL (1.3-7.7); Neutrophils % (A) 64 %; Platelet Count 287 k/uL (150-450); RBC 4.61 m/uL (4.30-5.90); RDW 15.8 % (11.5-15.5); WBC 6.5 k/uL (3.8-10.6)
[2021-05-09 13:49] LABS: African American GFR (CKD) >90 (>60 ml/min/1.73 sqM); Anion Gap 10 mmol/L; Blood Urea Nitrogen 22 mg/dL (9-20); C Reactive Protein 1.9 mg/dL (<1.0); Calcium 8.8 mg/dL (8.4-10.2); Carbon Dioxide 19 mmol/L (22-30); Chloride 110 mmol/L (98-107); Glucose 106 mg/dL (74-99); Non-African American GFR(CKD) >90 (>60 ml/min/1.73 sqM); Potassium 4.6 mmol/L (3.5-5.1); Sodium 139 mmol/L (137-145)
[2021-05-09 17:32] LABS: Appearance,Urine Clear (Clear); Bilirubin,Urine Negative (Negative); Blood,Urine Negative (Negative); Color,Urine Light Yellow; Glucose,Urine (UA) Negative (Negative); Ketones,Urine Negative (Negative); Leukocyte Esterase,Urine Negative (Negative); Nitrite,Urine Negative (Negative); PH, Urine 7.5 (5.0-8.0); Protein,Urine Trace (Negative); Specific Gravity,Urine 1.019 (1.001-1.035); Urobilinogen,Urine <2.0 mg/dL (<2.0)
[2021-05-09 18:29] LABS: Glucose,Whole Blood 105 mg/dL (75-99)
[2021-05-09] MEDS: SCOPOLAMINE 1.5MG/72HR PATCH TRANSDERM SCH (21:21)
--- NOTE | 2021-05-09 22:56 | P.CONS ---
History of Present Illness - Reason for Consult Consult date: 05/09/21 MDR UTI Requesting physician: Paula Ruiz - Chief Complaint abd pain x few days - History of Present Illness HPI: Patient is a 60-year male with a past medical history significant for MS bedbound state in this patient did have multiple admission to hospital fo r UTI and pneumonias patient presented hospital about a week ago for apparently abdominal pain no clear history of any vomiting or diarrhea on the ER sheet, patient was noticed to have a fecal impaction for the patient has been evaluated by general surgery, patient on presentation to the hospital did have low-grade fever 100.4 no fever since then patient did have a normal white count throughout his hospital stay kidney function has been normal patient had did have a UA done on the third which shows large leukocyte esterase 27 WBC culture has been finalized on the fifth we did show Pseudomonas and the drug-resistant Morganella ID was consulted today on 05/09/2021 for management of his antibiotic therapy and is a possible plan for discharge back to the [facility] most information has been obtained from review the chart and talking nursing staff as the patient still was not provide any history patient did have a abdominal x-ray done yesterday which shows normal bowel gas pattern no fecal impaction evident Review of system: Positive point has been mentioned in HPI complete review could not be obtained because of underlying mental status Past medical history : Reviewed see below Past surgical history : Reviewed see below Social history: Reviewed see below Medications: Reviewed see below GENERAL DESCRIPTION: Middle-aged male lying in bed, no distress. No tachypnea or accessory muscle of respiration use. HEENT: Shows Pallor , no scleral icterus. Oral mucous membrane is dry. NECK: Trachea central, no thyromegaly. LUNGS: Unlabored breathing. Decreased breath sound at the base. No wheeze or crackle. HEART: S1, S2, regular rate and rhythm. ABDOMEN: Soft, no tenderness , guarding or rigidity EXTREMITIES: No edema of feet. SKIN: No rash, no masses palpable. NEUROLOGICAL: The patient is awake, however nonverbal orientation could not be determined Assessment : Patient with a positive urine culture showing Pseudomonas and a multidrug-resistant Morganella in this patient did have a chronic indwelling Stein catheter with concern for possible mild cath associated UTI as patient did have low-grade fever on admission however no elevated white count Plan: 1-we will change his Stein catheter and obtain urine culture from the new Stein 2-discontinue Zosyn start the patient on Fortaz 3-discharge antibiotic on the basis of repeat urine culture We will follow on clinical condition and cultures to further adjust medication if needed Thank you for this consultation we will follow the patient along with you Past Medical History Past Medical History: Deep Vein Thrombosis (DVT), GERD/Reflux, Hypertension, Musculoskeletal Disorder, Neurologic Disorder, Pneumonia, Seizure Disorder, Skin Disorder Additional Past Medical History / Comment(s): Pt diagnosed with MS at the age of 39 yrs, eizure/pneumonia/UTI with sepsis/respirtory failure/vented, cognitive impairment, sister states when he is feeling well he could speak a few words/nod head appropriately/give thumbs up/roll eyes but when ill is nonverbal, pt has dysphagia/NPO with peg tube, contractures, last seizure 07/2020, trigeminal neuralgia, dysarthria/anarthria/neurogenic bladder with IDC-UTIs/sepsis, multiple pneumonias, recent seizure-last one 07/03/20, incontinent of stool, pt has had decubitus ulcer coccyx-sister unsure of skin condition at this time, past anemia r/t heparin/epistaxiis which involved nasal packing/transfusions, DVT bilateral arms, hypoxia, oxygen at 2L/NC, L femoral head fracture History of Any Multi-Drug Resistant Organisms: ESBL, MRSA Year Discovered:: 03/09/21-MRSA; 11/23/19 ESBL-E.coli MDRO Source:: Abdomen-Peg site MRSA; Urine -ESBL Past Surgical History: Tonsillectomy Additional Past Surgical History / Comment(s): Gastrostomy, peg tube, I&D coccyx decubitius, bronchoscopy, bilateral lasik eye surgery. Past Anesthesia/Blood Transfusion Reactions: No Reported Reaction Additional Past Anesthesia/Blood Transfusion Reaction / Comm: Pt has received blood in past without reaction. Past Psychological History: Depression Smoking Status: Never smoker Past Alcohol Use History: None Reported Past Drug Use History: None Reported - Past Family History Father Family Medical History: Myocardial Infarction (UT) Mother Family Medical History: Hypertension, Myocardial Infarction (UT) Additional Family Medical History / Comment(s): Mother of a UT at the age of 73 yrs. Medications and Allergies Home Medications Medication Instructions Recorded Confirmed Type Acetaminophen Oral Susp [Tylenol] 320 mg PEG/G-TUBE Q6H PRN 01/26/19 05/03/21 History Oxybutynin Chloride [Ditropan Oral 5 mg PEG/G-TUBE TID@0600,1400,2200 09/08/19 05/03/21 History Soln] Ipratropium-Albuterol Nebulize 3 ml INHALATION RT-Q6H PRN 12/16/19 05/03/21 History [Duoneb 0.5 mg-3 mg/3 ml Soln] Baclofen [Lioresal] 10 mg PEG/G-TUBE TID@0600,1400,2200 07/16/20 05/03/21 History carBAMazepine [TEGretol] 200 mg PEG/G-TUBE BID@0900,2100 07/30/20 05/03/21 History Scopolamine [Scopolamine 1 MG/72 1 patch TRANSDERM Q72H 09/07/20 05/03/21 History HR patch] Aspirin 81 mg PEG/G-TUBE DAILY@0900 11/27/20 05/03/21 History Cranberry Fruit Extract [Cranberry] 500 mg PEG/G-TUBE DAILY@0911/27/20 05/03/21 History amantadine HCL [Amantadine] 100 mg PEG/G-TUBE DAILY@0900 11/27/20 05/03/21 History Famotidine [Pepcid] 20 mg PEG/G-TUBE HS 03/07/21 05/03/21 History Lactulose 20 gm PEG/G-TUBE BID@0900,2100 03/07/21 05/03/21 History Magnesium Hydroxide [Milk of 7,200 mg PEG/G-TUBE Q72H PRN 03/07/21 05/03/21 History Magnesia Concentrate] Metoprolol Tartrate [Lopressor] 75 mg PEG/G-TUBE BID@0900,2100 03/07/21 05/03/21 History Lacosamide [Vimpat] 150 mg PEG/G-TUBE BID@0900,2100 #6 03/15/21 05/03/21 Rx tab Cholecalciferol [Vitamin D3 (25 25 mcg PEG/G-TUBE DAILY@0900 05/03/21 05/03/21 History Mcg = 1000 Iu)] Allergies Allergy/AdvReac Type Severity Reaction Status Date / Time meropenem [From Merrem] Allergy Rash/Hives Verified 05/03/21 13:28 Physical Exam Vitals: Vital Signs Temp Pulse Resp BP Pulse Ox 05/09/21 20:03 98.3 F 75 18 150/79 96 05/09/21 12:30 97.7 F 69 18 129/76 95 05/09/21 05:00 98.6 F 81 16 146/84 96 Intake and Output 05/09/21 05/09/21 05/09/21 06:59 14:59 22:59 Intake Total 1120 560 Output Total 1000 300 Balance 120 260 Intake: Tube Feeding 1120 560 Output: Urine 1000 300 Other: Voiding Method Indwelling Catheter # Bowel Movements 1 1 Weight 77 kg Results CBC & Chem 7: 05/09/21 12:54 05/09/21 12:54 Labs: Abnormal Lab Results - Last 24 Hours (Table) 05/08/21 05/09/21 05/09/21 Range/Units 23:49 06:22 12:54 Hgb 12.2 L (13.0-17.5) gm/dL Hct 38.5 L (39.0-53.0) % RDW 15.8 H (11.5-15.5) % Chloride (98-107) mmol/L Carbon Dioxide (22-30) mmol/L BUN (9-20) mg/dL Creatinine (0.66-1.25) mg/dL Glucose (74-99) mg/dL POC Glucose (mg/dL) 103 H 102 H (75-99) mg/dL C-Reactive Protein (<1.0) mg/dL Urine Protein (Negative) 05/09/21 05/09/21 05/09/21 Range/Units 12:54 16:00 18:17 Hgb (13.0-17.5) gm/dL Hct (39.0-53.0) % RDW (11.5-15.5) % Chloride 110 H (98-107) mmol/L Carbon Dioxide 19 L (22-30) mmol/L BUN 22 H (9-20) mg/dL Creatinine 0.65 L (0.66-1.25) mg/dL Glucose 106 H (74-99) mg/dL POC Glucose (mg/dL) 105 H (75-99) mg/dL C-Reactive Protein 1.9 H (<1.0) mg/dL Urine Protein Trace H (Negative) Microbiology - Last 24 Hours (Table) 05/03/21 13:39 Blood Culture - Final Blood No Growth after 144 hours 05/03/21 13:39 Blood Culture - Final Blood No Growth after 144 hours
[2021-05-09 23:33] LABS: Glucose,Whole Blood 92 mg/dL (75-99)
--- NOTE | 2021-05-10 02:25 | P.PN ---
Subjective Progress Note Date: 05/09/21 Acute urinary tract infection , secondary to gram-negative bacilli 2 Elevated troponin, not indicative of cardiac disease Fecal impaction with dilated bowel loops , improved with the impaction and enema . Still have persistent fecal impaction. Saturating on the case Altered mental status, most likely metabolic encephalopathy 60 male with past medical history of deep venous thrombosis, GERD, hypertension, seizure disorder, history of MS at age 39. Multiple infections including pneumonia and UTI. He has contractures in all extremities, status post PEG tube replacement Patient is poor historian and cannot provide information he was transferred from [facility] for abdominal pain and distention. He is nonverbal at baseline and bed bound and cannot provide information Patient also has a Aggarwal catheter on presentation On admission he had a fever of 100.4. Vitals are stable. CBC is unremarkable. BMP and liver enzymes are unremarkable as well. Troponin is elevated at 0.043 Urinalysis is suspicious for infection EKG showed normal sinus rhythm at [address]-T changes KUB: Cartilage for fecal impaction with distended rectum with stool up to 8.7 cm with possible distal colonic distention as well just x-ray showing mild cardiomegaly with interstitial changes. Current it for possible CHF with mild pulmonary vascular congestion. Some patchy atelectasis Echocardiogram from 07/2020 showing ejection fraction of 60-65% 05/07/2021 Patient is seen and evaluated; members at bedside; opens eyes on verbal stimulation; patient discussed with nursing staff and no reports of nausea or vomiting; patient hasn't had any Vital signs are reviewed and are stable Lab review reveals a white blood count of 6.7, hemoglobin 11.7 and hematocrit 36.7, sodium 139, potassium 4.4, BUN/creatinine of 17/0.63 General surgery on board for fecal impaction with fecal stasis; recommending to continue laxatives per gastrostomy tube and enemas 05/08/2021 Patient is evaluated sitting up in bed; more alert and responsive; patient is having good bowel movements per nursing staff Vital signs are reviewed and remained stable; labs are stable; repeat abdominal x-ray reveals resolution of fecal impaction; general surgery on board and recommending to continue bowel regimen 05/09/2021 Patient is seen in follow up and was maintained on IV zosyn for UTI that has now finalized showing pseudomonas and morganella morganii with resistance and have consulted infectious disease for further discharge antibiotics and appreciate recommendations. Patient with chronic indwelling aggarwal catheter and will replace and obtain repeat urine with culture. Patient also being seen by surgery and cleared from their perspective with follow up abd xray showing no fecal impac tion evident and normal gas pattern. Patient now on Fortaz and will await urine cultures. Patient is a resident of [facility] and social work following. WBC 6.5 and patient is afebrile. No reported chest pain or shortness of breath. Patient appears in no acute distress and responsive to voice. Patient is non-verbal. Physical exam: GENERAL: The patient is is alert and awake and has good attention span, he follows with his eyes but he does not follows commands , not in any acute di stress. Well developed, well nourished. HEENT: Pupils are round and equally reacting to light. EOMI. No scleral icterus. No conjunctival pallor. Normocephalic, atraumatic. No pharyngeal erythema. No thyromegaly. CARDIOVASCULAR: S1 and S2 present. No murmurs, rubs, or gallops. PULMONARY: Chest is clear to auscultation, no wheezing or crackles. -ABDOMEN: Soft, nontender, nondistended, normoactive bowel sounds. No palpable organomegaly. PEG tube is in place MUSCULOSKELETAL: No joint swelling or deformity. -EXTREMITIES: No cyanosis, clubbing, or pedal edema. Contractures of all 4 extremities NEUROLOGICAL: Gross neurological examination did not reveal any focal deficits. SKIN: No rashes. no petechiae. Assessment and plan: Acute urinary tract infection , secondary to chronic indwelling aggarwal catheter elevated troponin, not indicative of cardiac disease fecal impaction with dilated bowel loops , improved with disimpaction and enema. surgery following altered mental status, most likely metabolic encephalopathy secondary to above. 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 Patient was maintained on IV zosyn and switched to Fortaz and will await repeat culture. will continue to monitor and replace chronic indwelling aggarwal catheter and repeat UA with culture. Patient has multiple hospitalizations for UTI and pneumonia. Patient will return to [facility] once stabilized. Social work following. Prognosis guarded. Objective - Vital Signs Vital signs: Vital Signs Temp 98.6 F 05/09/21 05:00 Pulse 81 05/09/21 05:00 Resp 16 05/09/21 05:00 BP 146/84 05/09/21 05:00 Pulse Ox 96 05/09/21 05:00 Intake & Output 05/08/21 05/09/21 05/09/21 18:59 06:59 18:59 Intake Total 1680 1680 Output Total 1000 1000 Balance 680 680 Weight 77 kg Intake: Tube Feeding 1680 1680 Output: Urine 1000 1000 Other: Voiding Method Indwelling Catheter Indwelling Catheter Indwelling Catheter # Bowel Movements 2 1 - Labs CBC & Chem 7: 05/09/21 12:54 05/09/21 12:54 Labs: Abnormal Lab Results - Last 24 Hours (Table) 05/08/21 05/08/21 05/09/21 Range/Units 17:41 23:49 06:22 POC Glucose (mg/dL) 110 H 103 H 102 H (75-99) mg/dL Microbiology - Last 24 Hours (Table) 05/03/21 13:39 Blood Culture - Preliminary Blood No Growth after 120 hours 05/03/21 13:39 Blood Culture - Preliminary Blood No Growth after 120 hours
[2021-05-10] MEDS: OXYBUTYNIN CHLORIDE 5 MG TAB PEG/G-TUBE SCH ×2 (06:11→13:08)
[2021-05-10] MEDS: BACLOFEN 10 MG TAB PEG/G-TUBE SCH ×2 (06:11→13:08)
[2021-05-10 06:38] LABS: Glucose,Whole Blood 112 mg/dL (75-99)
[2021-05-10] MEDS: HEPARIN SODIUM,PORCINE/PF 5,000 UNIT/0.5 ML SYRINGE SQ SCH (07:35)
[2021-05-10] MEDS: LACTULOSE 20 GM/30 ML CUP PEG/G-TUBE SCH (07:35)
[2021-05-10] MEDS: LACOSAMIDE 150 MG TABLET PEG/G-TUBE SCH (07:36)
[2021-05-10] MEDS: FAMOTIDINE 20 MG/2 ML VIAL IV SCH (07:36)
[2021-05-10] MEDS: ASPIRIN 81 MG PEG/G-TUBE SCH (07:36)
[2021-05-10] MEDS: METOPROLOL TARTRATE 25 MG TAB PEG/G-TUBE SCH (07:37)
[2021-05-10] MEDS: CHOLECALCIFEROL 25 MCG (1000 IU) TABLET PEG/G-TUBE SCH (07:37)
[2021-05-10] MEDS: carBAMazepine 200 MG TAB PEG/G-TUBE SCH (07:38)
[2021-05-10 12:10] LABS: Glucose,Whole Blood 114 mg/dL (75-99)
--- NOTE | 2021-05-10 12:30 | P.DS ---
Providers Date of admission: 05/03/21 15:51 Expected date of discharge: 05/10/21 Attending physician: Avila Ireland MD Consults: 05/03/21 20:46 Consult Physician Urgent Consulting Provider: Micah Vegas Consult Reason/Comments: elevated troponin Do you want consulting provider notified?: Yes 05/04/21 07:48 Consult Physician Urgent Consulting Provider: Enrique Case Consult Reason/Comments: fecal impaction with dilated rectum Do you want consulting provider notified?: Yes 05/09/21 12:20 Consult Physician Stat Consulting Provider: Sonal Farah Consult Reason/Comments: UTI showing pseudomonas/ morganii Do you want consulting provider notified?: Yes Primary care physician: Matteo Hernandez Hospital Course: Final diagnosis Acute urinary tract infection , secondary to chronic indwelling aggarwal catheter elevated troponin, not indicative of cardiac disease fecal impaction with dilated bowel loops , improved with disimpaction and enema altered mental status, most likely metabolic encephalopathy secondary to above. 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 Patient will follow-up with Dr. Hernandez in the outpatient setting upon discharge. Total time taken is greater than 35 minutes. Hospital course Acute urinary tract infection , secondary to gram-negative bacilli 2 Elevated troponin, not indicative of cardiac disease Fecal impaction with dilated bowel loops , improved with the impaction and enema. Still have persistent fecal impaction. Saturating on the case Altered mental status, most likely metabolic encephalopathy 60 male with past medical history of deep venous thrombosis, GERD, hypertension, seizure disorder, history of MS at age 39. Multiple infections including pneumonia and UTI. He has contractures in all extremities, status post PEG tube replacement Patient is poor historian and cannot provide information he was transferred from [facility] for abdominal pain and distention. He is nonverbal at baseline and bed bound and cannot provide information Patient also has a Aggarwal catheter on presentation On admission he had a fever of 100.4. Vitals are stable. CBC is unremarkable. BMP and liver enzymes are unremarkable as well. Troponin is elevated at 0.043 Urinalysis is suspicious for infection EKG showed normal sinus rhythm at [address]-T changes KUB: Cartilage for fecal impaction with distended rectum with stool up to 8.7 cm with possible distal colonic distention as well just x-ray showing mild cardiomegaly with interstitial changes. Current it for possible CHF with mild pulmonary vascular congestion. Some patchy atelectasis Echocardiogram from 07/2020 showing ejection fraction of 60-65% 05/07/2021 Patient is seen and evaluated; members at bedside; opens eyes on verbal stimulation; patient discussed with nursing staff and no reports of nausea or vomiting; patient hasn't had any Vital signs are reviewed and are stable Lab review reveals a white blood count of 6.7, hemoglobin 11.7 and hematocrit 36.7, sodium 139, potassium 4.4, BUN/creatinine of 17/0.63 General surgery on board for fecal impaction with fecal stasis; recommending to continue laxatives per gastrostomy tube and enemas 05/08/2021 Patient is evaluated sitting up in bed; more alert and responsive; patient is having good bowel movements per nursing staff Vital signs are reviewed and remained stable; labs are stable; repeat abdominal x-ray reveals resolution of fecal impaction; general surgery on board and recommending to continue bowel regimen 05/09/2021 Patient is seen in follow up and was maintained on IV zosyn for UTI that has now finalized showing pseudomonas and morganella morganii with resistance and have consulted infectious disease for further discharge antibiotics and appreciate recommendations. Patient with chronic indwelling aggarwal catheter and will replace and obtain repeat urine with culture. Patient also being seen by surgery and cleared from their perspective with follow up abd xray showing no fecal impaction evident and normal gas pattern. Patient now on Fortaz and will await urine cultures. Patient is a resident of [facility] and social work following. WBC 6.5 and patient is afebrile. No reported chest pain or shortness of breath. Patient appears in no acute distress and responsive to voice. Patient is non-verbal. 05/10/2021 Patient is seen in follow-up with no acute overnight issues. Patient was continued on IV Zosyn and transitioned to Fortaz with infectious disease with repeat urinalysis being negative as initial cultures finalized from gram- negative bacilli to Pseudomonas aeruginosa along with Morganella Morganii. Chronic indwelling Aggarwal catheter was replaced with repeat urinalysis done which was negative. Patient did receive 7 days of IV antibiotics and will not require antibiotics on discharge. Patient to continue with tube feedings and medications as prescribed. Patient to follow-up with primary care provider upon discharge. Currently no reports of chest pain, shortness of breath, or palpitations. Patient is afebrile. No reports of nausea or vomiting and patient is tolerating tube feedings. Patient will be going to [facility]. On exam vital signs are stable. Cardio S1, S2 are muffled. Respiratory system shows diminished breath sounds at the bases with no wheezing or rhonchi noted. Abdomen is soft and nontender. Nervous system shows diffuse weakness. Please refer to medication reconciliation sheet for a list of medications. Patient Condition at Discharge: Fair Plan - Discharge Summary New Discharge Prescriptions: Continue Acetaminophen Oral Susp [Tylenol] 320 mg PEG/G-TUBE Q6H PRN PRN Reason: Fever And/ Or Pain Oxybutynin Chloride [Ditropan Oral Soln] 5 mg PEG/G-TUBE TID@0600,1400,2200 Ipratropium-Albuterol Nebulize [Duoneb 0.5 mg-3 mg/3 ml Soln] 3 ml INHALATION RT-Q6H PRN PRN Reason: Shortness Of Breath Baclofen [Lioresal] 10 mg PEG/G-TUBE TID@0600,1400,2200 carBAMazepine [TEGretol] 200 mg PEG/G-TUBE BID@899,2099 Scopolamine [Scopolamine 1 MG/72 HR patch] 1 patch TRANSDERM Q72H amantadine HCL [Amantadine] 100 mg PEG/G-TUBE DAILY@0900 Cranberry Fruit Extract [Cranberry] 500 mg PEG/G-TUBE DAILY@0900 Aspirin 81 mg PEG/G-TUBE DAILY@0900 Lactulose 20 gm PEG/G-TUBE BID@0900,2100 Lacosamide [Vimpat] 150 mg PEG/G-TUBE BID@0900,2100 #6 tab Metoprolol Tartrate [Lopressor] 75 mg PEG/G-TUBE BID@0900,2100 Famotidine [Pepcid] 20 mg PEG/G-TUBE HS Magnesium Hydroxide [Milk of Magnesia Concentrate] 7,200 mg PEG/G-TUBE Q72H PRN PRN Reason: Constipation Cholecalciferol [Vitamin D3 (25 Mcg = 1000 Iu)] 25 mcg PEG/G-TUBE DAILY@0900 Discharge Medication List Acetaminophen Oral Susp [Tylenol] 320 mg PEG/G-TUBE Q6H PRN 01/26/19 [History] Oxybutynin Chloride [Ditropan Oral Soln] 5 mg PEG/G-TUBE TID@0600,1400,2200 09/08/19 [History] Ipratropium-Albuterol Nebulize [Duoneb 0.5 mg-3 mg/3 ml Soln] 3 ml INHALATION RT-Q6H PRN 12/16/19 [History] Baclofen [Lioresal] 10 mg PEG/G-TUBE TID@0600,1400,2200 07/16/20 [History] carBAMazepine [TEGretol] 200 mg PEG/G-TUBE BID@899,209907/30/20 [History] Scopolamine [Scopolamine 1 MG/72 HR patch] 1 patch TRANSDERM Q72H 09/07/20 [History] Aspirin 81 mg PEG/G-TUBE DAILY@0911/27/20 [History] Cranberry Fruit Extract [Cranberry] 500 mg PEG/G-TUBE DAILY@89911/27/20 [History] amantadine HCL [Amantadine] 100 mg PEG/G-TUBE DAILY@89911/27/20 [History] Famotidine [Pepcid] 20 mg PEG/G-TUBE HS 03/07/21 [History] Lactulose 20 gm PEG/G-TUBE BID@899,209903/07/21 [History] Magnesium Hydroxide [Milk of Magnesia Concentrate] 7,200 mg PEG/G-TUBE Q72H PRN 03/07/21 [History] Metoprolol Tartrate [Lopressor] 75 mg PEG/G-TUBE BID@899,209903/07/21 [History] Cholecalciferol [Vitamin D3 (25 Mcg = 1000 Iu)] 25 mcg PEG/G-TUBE DAILY@0900 05/03/21 [History] Lacosamide [Vimpat] 150 mg PEG/G-TUBE BID@899,2099 #6 tab 05/10/21 [Rx] Follow up Appointment(s)/Referral(s): Matteo Hernandez MD [Primary Care Provider] - 1-2 days Activity/Diet/Wound Care/Special Instructions: Patient is returning to [facility] as tolerated Follow-up with primary care provider upon discharge Continue medications as prescribed continue bowel regimen Continue with tube feedings as previously scheduled Discharge Disposition: TRANSFER TO SNF/ECF
[2021-05-10 13:06] VITALS: BP 125/81; PULSE 89; RESP 18; TEMP 98.2
--- NOTE | 2021-05-10 13:38 | P.PN ---
Subjective Progress Note Date: 05/10/21 CHIEF COMPLAINT: Abdominal distention HISTORY OF PRESENT ILLNESS: Surgery is following in regards to patient's fecal impaction. Patient's fecal impaction has resolved. He is having bowel movements. He is tolerating tube feeds. No vomiting reported. Afebrile. A PHYSICAL EXAM: VITAL SIGNS: Reviewed. GENERAL: Well-developed in no acute distress. HEENT: No sclera icterus. Extraocular movements grossly intact. Moist buccal mucosa. Head is atraumatic, normocephalic. ABDOMEN: Soft. Distended. Nontender. NEUROLOGIC: Nonverbal ASSESSMENT: 1. Fecal impaction with distended rectum resolved PLAN: -Patient can be discharged from surgical standpoint -No surgical intervention planned -Continue bowel regimen Physician Coil Machine Supervisor note has been reviewed by physician. Signing provider agrees with the documented findings, assessment, and plan of care. Objective - Vital Signs Vital signs: Vital Signs Temp 98.2 F 05/10/21 13:00 Pulse 89 05/10/21 13:00 Resp 18 05/10/21 13:00 BP 125/81 05/10/21 13:00 Pulse Ox 97 05/10/21 13:00 Intake & Output 05/09/21 05/10/21 05/10/21 18:59 06:59 18:59 Intake Total 1680 1120 Output Total 300 1601 Balance -230 65 3717 Intake: Oral 0 Tube Feeding 1680 1120 Output: Urine 300 1600 Uretheral (Stein) 800 Stool 1 Other: Voiding Method Indwelling Catheter Indwelling Catheter Indwelling Catheter # Bowel Movements 1 - Labs CBC & Chem 7: 05/09/21 12:54 05/09/21 12:54 Labs: Abnormal Lab Results - Last 24 Hours (Table) 05/09/21 05/09/21 05/09/21 Range/Units 12:54 16:00 18:17 Chloride 110 H (98-107) mmol/L Carbon Dioxide 19 L (22-30) mmol/L BUN 22 H (9-20) mg/dL Creatinine 0.65 L (0.66-1.25) mg/dL Glucose 106 H (74-99) mg/dL POC Glucose (mg/dL) 105 H (75-99) mg/dL C-Reactive Protein 1.9 H (<1.0) mg/dL Urine Protein Trace H (Negative) 05/10/21 05/10/21 Range/Units 06:35 12:09 Chloride (98-107) mmol/L Carbon Dioxide (22-30) mmol/L BUN (9-20) mg/dL Creatinine (0.66-1.25) mg/dL Glucose (74-99) mg/dL POC Glucose (mg/dL) 112 H 114 H (75-99) mg/dL C-Reactive Protein (<1.0) mg/dL Urine Protein (Negative) Microbiology - Last 24 Hours (Table) 05/03/21 13:39 Blood Culture - Final Blood No Growth after 144 hours 05/03/21 13:39 Blood Culture - Final Blood No Growth after 144 hours
== END 2021-05-10 15:20 | DRG 698 ==
LOC: EC 12:27 → 3SCARD 15:51 → 5NMEDONC 05-06 22:22
PROVIDERS: ADMIT Internal Medicine; ATTEND Internal Medicine
DX: T83.511A Infection and inflammatory reaction due to indwelling urethral catheter, initial encounter (principal); G93.41 Metabolic encephalopathy; I21.A1 Myocardial infarction type 2; J98.11 Atelectasis; Z16.24 Resistance to multiple antibiotics; F32.9 Major depressive disorder, single episode, unspecified; G35 Multiple sclerosis; G40.909 Epilepsy, unspecified, not intractable, without status epilepticus; I10 Essential (primary) hypertension; K56.41 Fecal impaction; M19.90 Unspecified osteoarthritis, unspecified site; N31.9 Neuromuscular dysfunction of bladder, unspecified; N39.0 Urinary tract infection, site not specified; R77.8 Other specified abnormalities of plasma proteins; B96.5 Pseudomonas (aeruginosa) (mallei) (pseudomallei) as the cause of diseases classified elsewhere; B96.4 Proteus (mirabilis) (morganii) as the cause of diseases classified elsewhere; Y73.1 Therapeutic (nonsurgical) and rehabilitative gastroenterology and urology devices associated with adverse incidents; K21.9 Gastro-esophageal reflux disease without esophagitis; G50.0 Trigeminal neuralgia; R13.10 Dysphagia, unspecified; R15.9 Full incontinence of feces; R41.89 Other symptoms and signs involving cognitive functions and awareness; I08.1 Rheumatic disorders of both mitral and tricuspid valves; M62.49 Contracture of muscle, multiple sites; R47.1 Dysarthria and anarthria; Z99.81 Dependence on supplemental oxygen; Z74.01 Bed confinement status; Z79.82 Long term (current) use of aspirin; Z79.899 Other long term (current) drug therapy; Z86.718 Personal history of other venous thrombosis and embolism; Z93.1 Gastrostomy status; Z88.8 Allergy status to other drugs, medicaments and biological substances; Z86.14 Personal history of Methicillin resistant Staphylococcus aureus infection; Z87.440 Personal history of urinary (tract) infections; Z87.01 Personal history of pneumonia (recurrent)
CPT/HCPCS: 36415; 71045; 74018; 80048; 80053; 81001; 81003; 82150; 83605; 83690; 83735; 84145; 84484; 85025; 86140; 87040; 87077; 87086; 87186; 93005; 93306

== ENCOUNTER 2021-06-13 17:40 | Inpatient (IN) | payer MEDICARE, OTHER ==
--- NOTE | 2021-06-13 18:47 | ED ---
General Adult HPI - General Chief complaint: Urogenital Stated complaint: blood in urine Time Seen by Provider: 06/13/21 18:05 Source: EMS, RN notes reviewed Mode of arrival: EMS Limitations: altered mental status, physical limitation - History of Present Illness Initial comments: Patient is a pleasant 61-year-old male presenting to the emergency department with concern for pneumonia and blood in the urine. History is extremely limited. Patient is nonverbal. Patient reportedly has paraplegia and advanced MS. Patient unable to express any complaints. - Related Data Home Medications Medication Instructions Recorded Confirmed Acetaminophen Oral Susp [Tylenol] 320 mg PEG/G-TUBE Q6H PRN 01/26/19 05/03/21 Oxybutynin Chloride [Ditropan Oral 5 mg PEG/G-TUBE TID@0600,1400,2200 09/08/19 05/03/21 Soln] Ipratropium-Albuterol Nebulize 3 ml INHALATION RT-Q6H PRN 12/16/19 05/03/21 [Duoneb 0.5 mg-3 mg/3 ml Soln] Baclofen [Lioresal] 10 mg PEG/G-TUBE TID@0600,1400,2200 07/16/20 05/03/21 carBAMazepine [TEGretol] 200 mg PEG/G-TUBE BID@0900,2100 07/30/20 05/03/21 Scopolamine [Scopolamine 1 MG/72 1 patch TRANSDERM Q72H 09/07/20 05/03/21 HR patch] Aspirin 81 mg PEG/G-TUBE DAILY@89911/27/20 05/03/21 Cranberry Fruit Extract [Cranberry] 500 mg PEG/G-TUBE DAILY@0911/27/20 05/03/21 amantadine HCL [Amantadine] 100 mg PEG/G-TUBE DAILY@00 11/27/20 05/03/21 Famotidine [Pepcid] 20 mg PEG/G-TUBE HS 03/07/21 05/03/21 Lactulose 20 gm PEG/G-TUBE BID@0900,2100 03/07/21 05/03/21 Magnesium Hydroxide [Milk of 7,200 mg PEG/G-TUBE Q72H PRN 03/07/21 05/03/21 Magnesia Concentrate] Metoprolol Tartrate [Lopressor] 75 mg PEG/G-TUBE BID@0900,2100 03/07/21 05/03/21 Cholecalciferol [Vitamin D3 (25 25 mcg PEG/G-TUBE DAILY@0900 05/03/21 05/03/21 Mcg = 1000 Iu)] Previous Rx's Medication Instructions Recorded Lacosamide [Vimpat] 150 mg PEG/G-TUBE BID@0900,2100 #6 05/10/21 tab Allergies Allergy/AdvReac Type Severity Reaction Status Date / Time meropenem [From Merrem] Allergy Rash/Hives Verified 06/13/21 17:57 Review of Systems ROS Statement: Those systems with pertinent positive or pertinent negative responses have been documented in the HPI. ROS Other: All systems not noted in ROS Statement are negative. Limitations: ROS unobtainable due to patients medical condition Past Medical History Past Medical History: Deep Vein Thrombosis (DVT), GERD/Reflux, Hypertension, Mu sculoskeletal Disorder, Neurologic Disorder, Pneumonia, Seizure Disorder, Skin Disorder Additional Past Medical History / Comment(s): Pt diagnosed with MS at the age of 39 yrs, eizure/pneumonia/UTI with sepsis/respirtory failure/vented, cognitive impairment, sister states when he is feeling well he could speak a few words/nod head appropriately/give thumbs up/roll eyes but when ill is nonverbal, pt has dysphagia/NPO with peg tube, contractures, last seizure 07/2020, trigeminal neuralgia, dysarthria/anarthria/neurogenic bladder with IDC-UTIs/sepsis, multiple pneumonias, recent seizure-last one 07/03/20, incontinent of stool, pt has had decubitus ulcer coccyx-sister unsure of skin condition at this time, past anemia r/t heparin/epistaxiis which involved nasal packing/transfusions, DVT bilateral arms, hypoxia, oxygen at 2L/NC, L femoral head fracture History of Any Multi-Drug Resistant Organisms: ESBL, MRSA Date of last positivie culture/infection: 03/09/21-MRSA; 11/23/19 ESBL-E.coli MDRO Source:: Abdomen-Peg site MRSA; Urine -ESBL Past Surgical History: Tonsillectomy Additional Past Surgical History / Comment(s): Gastrostomy, peg tube, I&D coccyx decubitius, bronchoscopy, bilateral lasik eye surgery. Past Anesthesia/Blood Transfusion Reactions: No Reported Reaction Additional Past Anesthesia/Blood Transfusion Reaction / Comment(s): Pt has received blood in past without reaction. Past Psychological History: Depression Smoking Status: Never smoker Past Alcohol Use History: None Reported Past Drug Use History: None Reported - Past Family History Father Family Medical History: Myocardial Infarction ([place]) Mother Family Medical History: Hypertension, Myocardial Infarction ([place]) Additional Family Medical History / Comment(s): Mother of a IL at the age of 73 yrs. General Exam Limitations: altered mental status, physical limitation General appearance: alert, other (Contracted extremities.) Head exam: Present: atraumatic Eye exam: Present: normal appearance Neck exam: Present: normal inspection Respiratory exam: Present: normal lung sounds bilaterally Cardiovascular Exam: Present: regular rate, normal rhythm GI/Abdominal exam: Present: soft. Absent: tenderness Neurological exam: Present: alert, altered (Nonverbal. Does not follow commands), other (Contracted extremities) Psychiatric exam: Present: flat affect Skin exam: Present: normal color Course Vital Signs 06/13/21 17:47 Temperature 97.3 F L Pulse Rate 77 Respiratory 20 Rate Blood Pressure 150/96 O2 Sat by Pulse 98 Oximetry EKG Findings - EKG Comments: EKG Findings:: Normal sinus rhythm with rate of 83. PA 152. QRS 84. QT 352. QTC 413. Normal axis. Normal QRS. No acute ST change. Medical Decision Making - Medical Decision Making Patient reevaluated and unchanged. Case was discussed with practitioner Maria Arroyo, who will admit covering for Dr. Crowe, who admits for Dr. Hernandez. Chest x-ray is somewhat hazy and COVID-19 test will be ordered. Patient otherwise will be covered with antibiotics for possible pneumonia and urinary tract infection. - Lab Data Result diagrams: 06/13/21 19:00 06/13/21 19:00 Lab Results 06/13/21 06/13/21 06/13/21 Range/Units 19:00 19:00 19:00 WBC 7.3 (3.8-10.6) k/uL RBC 5.12 (4.30-5.90) m/uL Hgb 13.6 (13.0-17.5) gm/dL Hct 41.9 (39.0-53.0) % MCV 81.8 (80.0-100.0) fL MCH 26.6 (25.0-35.0) pg MCHC 32.5 (31.0-37.0) g/dL RDW 15.2 (11.5-15.5) % Plt Count 391 (150-450) k/uL MPV 8.3 Neutrophils % 71 % Lymphocytes % 14 % Monocytes % 7 % Eosinophils % 7 % Basophils % 1 % Neutrophils # 5.2 (1.3-7.7) k/uL Lymphocytes # 1.0 (1.0-4.8) k/uL Monocytes # 0.5 (0-1.0) k/uL Eosinophils # 0.5 (0-0.7) k/uL Basophils # 0.0 (0-0.2) k/uL PT 11.0 (9.0-12.0) sec INR 1.0 (<1.2) APTT 27.0 (22.0-30.0) sec Sodium 136 L (137-145) mmol/L Potassium 4.8 (3.5-5.1) mmol/L Chloride 103 (98-107) mmol/L Carbon Dioxide 24 (22-30) mmol/L Anion Gap 9 mmol/L BUN 22 H (9-20) mg/dL Creatinine 0.62 L (0.66-1.25) mg/dL Est GFR (CKD-EPI)AfAm >90 (>60 ml/min/1.73 sqM) Est GFR (CKD-EPI)NonAf >90 (>60 ml/min/1.73 sqM) Glucose 95 (74-99) mg/dL Plasma Lactic Acid [place] (0.7-2.0) mmol/L Calcium 9.1 (8.4-10.2) mg/dL Total Bilirubin 0.3 (0.2-1.3) mg/dL AST 20 (17-59) U/L ALT 17 (4-49) U/L Alkaline Phosphatase 124 (38-126) U/L Total Protein 7.6 (6.3-8.2) g/dL Albumin 3.8 (3.5-5.0) g/dL Urine Color Urine Appearance (Clear) Urine pH (5.0-8.0) Ur Specific [place] (1.001-1.035) Urine Protein (Negative) Urine Glucose (UA) (Negative) Urine Ketones (Negative) Urine Blood (Negative) Urine Nitrite (Negative) Urine Bilirubin (Negative) Urine Urobilinogen (<2.0) mg/dL Ur Leukocyte Esterase (Negative) Urine RBC (0-5) /hpf Urine WBC (0-5) /hpf Urine Bacteria (None) /hpf 06/13/21 06/13/21 Range/Units 19:00 20:05 WBC (3.8-10.6) k/uL RBC (4.30-5.90) m/uL Hgb (13.0-17.5) gm/dL Hct (39.0-53.0) % MCV (80.0-100.0) fL MCH (25.0-35.0) pg MCHC (31.0-37.0) g/dL RDW (11.5-15.5) % Plt Count (150-450) k/uL MPV Neutrophils % % Lymphocytes % % Monocytes % % Eosinophils % % Basophils % % Neutrophils # (1.3-7.7) k/uL Lymphocytes # (1.0-4.8) k/uL Monocytes # (0-1.0) k/uL Eosinophils # (0-0.7) k/uL Basophils # (0-0.2) k/uL PT (9.0-12.0) sec INR (<1.2) APTT (22.0-30.0) sec Sodium (137-145) mmol/L Potassium (3.5-5.1) mmol/L Chloride (98-107) mmol/L Carbon Dioxide (22-30) mmol/L Anion Gap mmol/L BUN (9-20) mg/dL Creatinine (0.66-1.25) mg/dL Est GFR (CKD-EPI)AfAm (>60 ml/min/1.73 sqM) Est GFR (CKD-EPI)NonAf (>60 ml/min/1.73 sqM) Glucose (74-99) mg/dL Plasma Lactic Acid [place] 1.3 (0.7-2.0) mmol/L Calcium (8.4-10.2) mg/dL Total Bilirubin (0.2-1.3) mg/dL AST (17-59) U/L ALT (4-49) U/L Alkaline Phosphatase (38-126) U/L Total Protein (6.3-8.2) g/dL Albumin (3.5-5.0) g/dL Urine Color Yellow Urine Appearance Cloudy (Clear) Urine pH 8.0 (5.0-8.0) Ur Specific [place] 1.017 (1.001-1.035) Urine Protein Trace H (Negative) Urine Glucose (UA) Negative (Negative) Urine Ketones Negative (Negative) Urine Blood Large H (Negative) Urine Nitrite Positive (Negative) Urine Bilirubin Negative (Negative) Urine Urobilinogen <2.0 (<2.0) mg/dL Ur Leukocyte Esterase Large H (Negative) Urine RBC >182 H (0-5) /hpf Urine WBC 51 H (0-5) /hpf Urine Bacteria Few H (None) /hpf - Radiology Data Radiology results: image reviewed (Chest x-ray shows new interstitial infiltrates.) Disposition Clinical Impression: UTI (urinary tract infection), Pneumonia Disposition: ADMITTED IP TO THIS HOSP Is patient prescribed a controlled substance at d/c from ED?: No Referrals: Matteo Hernandez MD [Primary Care Provider] - 1-2 days Decision Time: 20:51
[2021-06-13 19:44] LABS: Basophils % (A) 1 %; Eosinophils # (A) 0.5 k/uL (0-0.7); Eosinophils % (A) 7 %; HCT 41.9 % (39.0-53.0); HGB 13.6 gm/dL (13.0-17.5); Lymphocytes % (A) 14 %; MCH 26.6 pg (25.0-35.0); MCHC 32.5 g/dL (31.0-37.0); MCV 81.8 fL (80.0-100.0); Mean Platelet Volume 8.3; Monocytes # (A) 0.5 k/uL (0-1.0); Monocytes % (A) 7 %; Neutrophils # (A) 5.2 k/uL (1.3-7.7); Neutrophils % (A) 71 %; Platelet Count 391 k/uL (150-450); RBC 5.12 m/uL (4.30-5.90); RDW 15.2 % (11.5-15.5); WBC 7.3 k/uL (3.8-10.6)
[2021-06-13 19:55] LABS: ALT 17 U/L (4-49); AST 20 U/L (17-59); African American GFR (CKD) >90 (>60 ml/min/1.73 sqM); Albumin 3.8 g/dL (3.5-5.0); Alkaline Phosphatase 124 U/L (38-126); Anion Gap 9 mmol/L; Blood Urea Nitrogen 22 mg/dL (9-20); Calcium 9.1 mg/dL (8.4-10.2); Carbon Dioxide 24 mmol/L (22-30); Chloride 103 mmol/L (98-107); Glucose 95 mg/dL (74-99); Non-African American GFR(CKD) >90 (>60 ml/min/1.73 sqM); Potassium 4.8 mmol/L (3.5-5.1); Sodium 136 mmol/L (137-145); Total Bilirubin 0.3 mg/dL (0.2-1.3); Total Protein 7.6 g/dL (6.3-8.2)
--- NOTE | 2021-06-13 20:22 | XR ---
EXAMINATION TYPE: XR chest 1V portable DATE OF EXAM: 06/13/2021 COMPARISON: 05/05/2021 HISTORY: Pneumonia TECHNIQUE: Single view FINDINGS: There is some interstitial infiltrates in the mid and lower lung prater. Heart is not gross ly enlarged. There is old left side healed rib fractures. IMPRESSION: There is some new interstitial infiltrate and subsegmental atelectasis in the lower lung prater compared to old exam. No obvious heart failure.
[2021-06-13 20:35] LABS: Appearance,Urine Cloudy (Clear); Bacteria,Urine Few /hpf; Bilirubin,Urine Negative (Negative); Blood,Urine Large (Negative); Color,Urine Yellow; Glucose,Urine (UA) Negative (Negative); Ketones,Urine Negative (Negative); Leukocyte Esterase,Urine Large (Negative); Nitrite,Urine Positive (Negative); Protein,Urine Trace (Negative); RBC,Urine >182 /hpf (0-5); Specific Gravity,Urine 1.017 (1.001-1.035); Urobilinogen,Urine <2.0 mg/dL (<2.0); WBC,Urine 51 /hpf (0-5)
[2021-06-13] MEDS ORDERED: PNEUMONIA PROTOCOL UTILIZED 1 EACH MISC PO PRN (20:51)
[2021-06-13] MEDS ORDERED: PIPERACILLIN-TAZOBACTAM 3.375 GM in SODIUM CHLORIDE 0.9% 100 ML IVPB STA (20:52)
[2021-06-13] MEDS ORDERED: AZITHROMYCIN 500 MG in SODIUM CHLORIDE 0.9% 250 ML IVPB STA ×2 (20:52→22:26)
[2021-06-13] MEDS ORDERED: ACETAMINOPHEN TAB 325 MG TAB PEG/G-TUBE PRN (21:29)
[2021-06-13] MEDS: SODIUM CHLORIDE 0.9% 1,000 ML IV SCH (22:11)
[2021-06-13] MEDS: BACLOFEN 10 MG TAB PEG/G-TUBE SCH (23:33)
[2021-06-13] MEDS: OXYBUTYNIN CHLORIDE 5 MG TAB PEG/G-TUBE SCH (23:33)
[2021-06-13] MEDS: METOPROLOL TARTRATE 50 MG TAB PEG/G-TUBE SCH (23:33)
[2021-06-14] MEDS: IPRATROPIUM-ALBUTEROL 3 ML NEB INHALATION PRN ×3 (00:11→11:53)
[2021-06-14] MEDS: PIPERACILLIN-TAZOBACTAM 3.375 GM in SODIUM CHLORIDE 0.9% 100 ML IVPB SCH ×3 (05:42→21:18)
[2021-06-14] MEDS: OXYBUTYNIN CHLORIDE 5 MG TAB PEG/G-TUBE SCH ×3 (05:42→21:17)
[2021-06-14] MEDS: BACLOFEN 10 MG TAB PEG/G-TUBE SCH ×3 (05:42→21:17)
[2021-06-14] MEDS: SODIUM CHLORIDE 0.9% 1,000 ML IV SCH ×3 (05:45→22:12)
[2021-06-14 07:17] LABS: African American GFR (CKD) >90 (>60 ml/min/1.73 sqM); Anion Gap 13 mmol/L; Blood Urea Nitrogen 20 mg/dL (9-20); Calcium 8.5 mg/dL (8.4-10.2); Carbon Dioxide 15 mmol/L (22-30); Chloride 110 mmol/L (98-107); Glucose 103 mg/dL (74-99); Non-African American GFR(CKD) >90 (>60 ml/min/1.73 sqM); Potassium 4.7 mmol/L (3.5-5.1); Sodium 138 mmol/L (137-145)
[2021-06-14] MEDS: carBAMazepine 200 MG TAB PEG/G-TUBE SCH ×2 (07:58→22:12)
[2021-06-14] MEDS: LACOSAMIDE 150 MG TABLET PEG/G-TUBE SCH ×2 (07:58→21:17)
[2021-06-14] MEDS: METOPROLOL TARTRATE 50 MG TAB PEG/G-TUBE SCH ×2 (07:58→21:17)
[2021-06-14] MEDS: LACTULOSE 20 GM/30 ML CUP PEG/G-TUBE SCH ×2 (07:58→21:17)
[2021-06-14] MEDS: METOPROLOL TARTRATE 25 MG TAB PEG/G-TUBE SCH ×2 (07:58→21:17)
--- NOTE | 2021-06-14 09:02 | XR ---
EXAMINATION TYPE: XR chest 1V DATE OF EXAM: 06/14/2021 COMPARISON: 06/13/2021 HISTORY: 61-year-old male pneumonia TECHNIQUE: Single frontal view of the chest is obtained. FINDINGS: Low lung volumes and crowded vascular markings. Heart margins are obscured due to the low lung volume s. Increased interstitial opacity, similar to prior exam. Focal left-sided rib fracture deformities. No casi consolidation or pleural effusion. IMPRESSION: Hypoventilatory changes limiting the exam. Interstitial changes persist and could represent pulmonary vascular congestion, interstitial pneumonitis, or atypical pneumonias. Clinically correlate.
[2021-06-14 09:38] LABS: HCT 42.2 % (39.6-50.0); HGB 12.6 g/dL (13.0-17.0); MCH 24.8 pg (27.0-32.0); MCHC 29.9 g/dL (32.0-37.0); MCV 83.1 fL (80.0-97.0); Mean Platelet Volume 12.3 fL (9.5-12.2); Platelet Count 289 X 10*3/uL (140-440); RBC 5.08 X 10*6/uL (4.40-5.60); RDW 15.5 % (11.5-14.5)
[2021-06-14] MEDS ORDERED: MAGNESIUM HYDROXIDE 2,400 MG/10 ML CUP PEG/G-TUBE PRN (11:28)
[2021-06-14] MEDS: SCOPOLAMINE 1.5MG/72HR PATCH TRANSDERM SCH (12:46)
--- NOTE | 2021-06-14 15:24 | P.HPIM ---
History of Present Illness H&P Date: 06/14/21 This is a 61-year-old male with a past medical history of multiple sclerosis at age 39, contractures of all extremities, PEG tube, DVT, gastroesophageal reflux disease, hypertension, and seizure disorder and currently resides at [facility]. Patient was brought to the emergency room for concerns for possible pneumonia and also found to have blood in the urine. Patient does have a chronic indwelli ng Stein catheter and has had multiple hospitalizations for pneumonia and urinary tract infections. Patient is nonverbal so most of the history was obtained from nursing, the chart, and sister who is his legal guardian. Patient was started on IV antibiotics in the form of Zithromax and Zosyn and infectious disease consulted and pending. Patient does have a chronic indwelling Stein catheter recommending to change the Stein catheter and urinalysis shows positive nitrates with large blood and large leukocyte esterase noted. COVID-19 was negative. White blood count on admission to the ER was 7.3 and hemoglobin was 13.6 with a sodium of 136 and current creatinine 0.62. Patient is also having mild fevers. Patient has PEG tube and is nothing by mouth and will consult dietitian to resume tube feedings. PEG tube site appears clean, dry, and intact on exam. Chest x-ray showed interstitial changes persist and could represent pulmonary vascular congestion, interstitial pneumonitis or atypical pneumonia. EKG shows normal sinus rhythm. Review of Systems Unable to obtain as patient is nonverbal Past Medical History Past Medical History: Deep Vein Thrombosis (DVT), GERD/Reflux, Hypertension, Musculoskeletal Disorder, Neurologic Disorder, Pneumonia, Seizure Disorder, Skin Disorder Additional Past Medical History / Comment(s): Pt diagnosed with MS at the age of 39 yrs, eizure/pneumonia/UTI with sepsis/respirtory failure/vented, cognitive impairment, sister states when he is feeling well he could speak a few words/nod head appropriately/give thumbs up/roll eyes but when ill is nonverbal, pt has dysphagia/NPO with peg tube, contractures, last seizure 07/2020, trigeminal neuralgia, dysarthria/anarthria/neurogenic bladder with IDC-UTIs/sepsis, multiple pneumonias, recent seizure-last one 07/03/20, incontinent of stool, pt has had decubitus ulcer coccyx-sister unsure of skin condition at this time, past anemia r/t heparin/epistaxiis which involved nasal packing/transfusions, DVT bilateral arms, hypoxia, oxygen at 2L/NC, L femoral head fracture History of Any Multi-Drug Resistant Organisms: ESBL, MRSA Date of last positivie culture/infection: 03/09/21-MRSA; 11/23/19 ESBL-E.coli MDRO Source:: Abdomen-Peg site MRSA; Urine -ESBL Past Surgical History: Tonsillectomy Additional Past Surgical History / Comment(s): Gastrostomy, peg tube, I&D coccyx decubitius, bronchoscopy, bilateral lasik eye surgery. Past Anesthesia/Blood Transfusion Reactions: No Reported Reaction Additional Past Anesthesia/Blood Transfusion Reaction / Comment(s): Pt has received blood in past without reaction. Past Psychological History: Depression Smoking Status: Never smoker Past Alcohol Use History: None Reported Past Drug Use History: None Reported - Past Family History Father Family Medical History: Myocardial Infarction ([place]) Mother Family Medical History: Hypertension, Myocardial Infarction ([place]) Additional Family Medical History / Comment(s): Mother of a [place] at the age of 73 yrs. Medications and Allergies Home Medications Medication Instructions Recorded Confirmed Type Oxybutynin Chloride [Ditropan Oral 5 mg PEG/G-TUBE TID@0600,1400,2200 09/08/19 06/13/21 History Soln] Ipratropium-Albuterol Nebulize 3 ml INHALATION RT-Q6H PRN 12/16/19 06/13/21 Hi story [Duoneb 0.5 mg-3 mg/3 ml Soln] Baclofen [Lioresal] 10 mg PEG/G-TUBE TID@0600,1400,2200 07/16/20 06/13/21 History carBAMazepine [TEGretol] 200 mg PEG/G-TUBE BID@0900,2100 07/30/20 06/13/21 History Scopolamine [Scopolamine 1 MG/72 1 patch TRANSDERM Q72H 09/07/20 06/13/21 History HR patch] Aspirin 81 mg PEG/G-TUBE DAILY@0900 11/27/20 06/13/21 History Cranberry Fruit Extract [Cranberry] 500 mg PEG/G-TUBE DAILY@0900 11/27/20 06/13/21 History amantadine HCL [Amantadine] 100 mg PEG/G-TUBE DAILY@0900 11/27/20 06/13/21 History Famotidine [Pepcid] 20 mg PEG/G-TUBE HS 03/07/21 06/13/21 History Lactulose 20 gm PEG/G-TUBE BID@0900,2100 03/07/21 06/13/21 History Magnesium Hydroxide [Milk of 7,200 mg PEG/G-TUBE Q72H PRN 03/07/21 06/13/21 History Magnesia Concentrate] Lacosamide [Vimpat] 150 mg PEG/G-TUBE BID@0900,2100 #6 05/10/21 06/13/21 Rx tab Acetaminophen Tab [Tylenol] 650 mg PEG/G-TUBE Q6H PRN 06/13/21 06/13/21 History Levofloxacin [Levaquin] 500 mg PEG/G-TUBE DAILY 06/13/21 06/13/21 History Metoprolol Tartrate [Lopressor] 25 mg PEG/G-TUBE Q12HR 06/13/21 06/13/21 History Metoprolol Tartrate [Lopressor] 50 mg PEG/G-TUBE Q12HR 06/13/21 06/13/21 History Allergies Allergy/AdvReac Type Severity Reaction Status Date / Time meropenem [From Merrem] Allergy Rash/Hives Verified 06/13/21 21:04 Physical Exam Vitals: Vital Signs Temp Pulse Pulse Resp BP BP Pulse Ox 06/14/21 08:20 108 H 06/14/21 06:57 98.6 F 105 H 18 112/70 99 06/14/21 01:12 105 H 18 114/83 97 06/14/21 00:27 99.1 F 107 H 18 127/88 96 06/14/21 00:21 112 H 06/14/21 00:11 108 H 06/13/21 22:00 94 18 187/125 96 06/13/21 21:00 90 18 156/115 96 06/13/21 17:47 97.3 F L 77 20 150/96 98 Intake and Output 06/13/21 06/14/21 06/14/21 22:59 06:59 14:59 Output Total 520 Balance -520 Output: Urine 520 Other: Voiding Method Indwelling Catheter Diaper Incontinent # Bowel Movements 0 Weight 81.647 kg Gen: This is a 61-year-old nonverbal male awake, thin built with multiple contractures of bilateral upper and lower extremities HEENT: Head is atraumatic, normocephalic. Pupils equal, round. Sclerae is anicteric. NECK: Supple. No JVD. No lymphadenopathy. No thyromegaly. LUNGS: Diminished breath sounds bilaterally with some scattered rhonchi noted. HEART: Regular rate and rhythm. No murmur. ABDOMEN: Soft. Bowel sounds are present. No masses. No tenderness. PEG tube noted in the site is clean dry and intact EXTREMITIES: No pedal edema. No calf tenderness. Right lateral upper and lower extremity contractures NEUROLOGICAL: Patient is awake, alert and oriented x0-1. Results CBC & Chem 7: 06/14/21 06:22 06/14/21 06:22 Labs: Abnormal Lab Results - Last 24 Hours (Table) 06/13/21 06/13/21 06/14/21 Range/Units 19:00 20:05 01:11 Sodium 136 L (137-145) mmol/L Chloride (98-107) mmol/L Carbon Dioxide (22-30) mmol/L BUN 22 H (9-20) mg/dL Creatinine 0.62 L (0.66-1.25) mg/dL Glucose (74-99) mg/dL Troponin I 0.037 H* (0.000-0.034) ng/mL Urine Protein Trace H (Negative) Urine Blood Large H (Negative) Ur Leukocyte Esterase Large H (Negative) Urine RBC >182 H (0-5) /hpf Urine WBC 51 H (0-5) /hpf Urine Bacteria Few H (None) /hpf 06/14/21 Range/Units 06:22 Sodium (137-145) mmol/L Chloride 110 H (98-107) mmol/L Carbon Dioxide 15 L (22-30) mmol/L BUN (9-20) mg/dL Creatinine 0.64 L (0.66-1.25) mg/dL Glucose 103 H (74-99) mg/dL Troponin I (0.000-0.034) ng/mL Urine Protein (Negative) Urine Blood (Negative) Ur Leukocyte Esterase (Negative) Urine RBC (0-5) /hpf Urine WBC (0-5) /hpf Urine Bacteria (None) /hpf Microbiology - Last 24 Hours (Table) 06/13/21 20:05 Urine Culture - Preliminary Urine,Voided Assessment and Plan Assessment: Sepsis, present on admission secondary to possible pneumonia and acute urinary tract infection Possible acute urinary tract infection with chronic indwelling Stein catheter Hypertension Gastroesophageal reflux disease History of seizure disorder Multiple sclerosis at age 39 with multiple limb contractures History of multiple hospitalizations secondary to urinary tract infections and pneumonia History of DVT GI prophylaxis DVT prophylaxis Full code Plan: Recommend to continue with IV hydration and continued antibiotics in the form of Zithromax and Zosyn and infectious disease consulted. Patient has multiple hospitalizations for urinary tract infections and pneumonia recommend changing indwelling Stein catheter with repeat urinalysis. Patient uses supplemental oxygen of 2 L via nasal cannula and also consult the dietitian to resume tube feedings. Will await ID consult and appreciate input and recommendations. Await for culture finalization of urine to determine discharge antibiotics. Repeat white blood count today is 14.10 and hemoglobin is stable at 12.6, sodium is 138 with a potassium of 4.7 current creatinine is stable at 0.64. COVID-19 was negative. Patient had low-grade temp of 99.0 and will continue to monitor closely. Repeat a.m. labs. Time with Patient: Greater than 30
[2021-06-14] MEDS ORDERED: AZITHROMYCIN 500 MG in SODIUM CHLORIDE 0.9% 250 ML IVPB SCH (21:00)
[2021-06-14] MEDS: FAMOTIDINE 8 MG/ML ORAL.SUSP PEG/G-TUBE SCH (22:11)
[2021-06-14] MEDS ORDERED: VANCOMYCIN IV PER PHARMACY 1 EACH MISC MISCELLANE PRN (22:35)
--- NOTE | 2021-06-14 22:35 | P.CONS ---
History of Present Illness - Reason for Consult Consult date: 06/14/21 pneumonia , UTI Requesting physician: Adilson Pardo - Chief Complaint blood in urine and congested cough x 1 day - History of Present Illness History of present illness : Patient is 61-year-old male with a past medical history difficult for MS in this patient who is a bedbound shelter resident patient did have a multiple episodes of urinary tract infection and pneumonia patient was sent to [facility] last night from shelter with concern for pneumonia and blood in the urine patient on presentation to the hospital was afebrile patient is currently satting 98 to 90% on room air patient did have a known mild white count initially subsequent white count up to 14,000 kidney function has been normal urine dip shows large leukocyte Estrace and more than 182 RBC culture showing gram-negative bacilli patient blood cultures showing gram-positive cocci in cluster the patient has been started on Zosyn patient did have a chest x-ray new interstitial infiltrate in the lower lung prater compared to oral exam infectious disease was consulted for further management of antibiotic therapy was information has been obtained from review the chart talking to nursing staff as the patient himself was not provide any history Review of system: Positive point has been mentioned in HPI complete review could not be obtained because of underlying mental status. Past medical history : Reviewed, documented below Past surgical history : Reviewed, documented below Social history: Reviewed, documented below Medications: Reviewed, as documented below EXAMINATION: Vital sigans= Reviewed and documented below GENERAL DESCRIPTION: Middle-aged male lying in bed, no distress. No tachypnea or accessory muscle of respiration use. HEENT: Shows Pallor , no scleral icterus. Oral mucous membrane is dry. NECK: Trachea central, no thyromegaly. LUNGS: Unlabored breathing. Coarse breath sounds bilaterally. No wheeze or crackle. HEART: S1, S2, regular rate and rhythm. ABDOMEN: Soft, no tenderness , guarding or rigidity EXTREMITIES: No edema of feet. SKIN: No rash, no masses palpable. NEUROLOGICAL: The patient is lethargic orientation could not determine LABS AND RADIOLOGY: Reviewed results see below Assessment : 1-patient presented to hospital with blood in his urine concerning for urinary tract infection in this patient who do have a somewhat congested cough with evidence of bibasilar infiltrates suspicious for pneumonia will need to cover for the resistant gram-negative the likely pathogen 2-positive blood culture with gram-positive cocci questionably skin contaminant versus related to underlying pneumonia or UTI Plan: 1-blood cultures will be repeated document clearance of bacteremia 2-vancomycin pharmacy to dose her with a target trough of 15 while watching her kidney function and Vanco trough closely. 3-switch Zosyn to cefepime to decrease risk of nephrotoxicity We will follow on clinical condition and cultures to further adjust medication if needed Thank you for this consultation we will follow the patient along with you Past Medical History Past Medical History: Deep Vein Thrombosis (DVT), GERD/Reflux, Hypertension, Musculoskeletal Disorder, Neurologic Disorder, Pneumonia, Seizure Disorder, Skin Disorder Additional Past Medical History / Comment(s): Pt diagnosed with MS at the age of 39 yrs, eizure/pneumonia/UTI with sepsis/respirtory failure/vented, cognitive impairment, sister states when he is feeling well he could speak a few words/nod head appropriately/give thumbs up/roll eyes but when ill is nonverbal, pt has dysphagia/NPO with peg tube, contractures, last seizure 07/2020, trigeminal neuralgia, dysarthria/anarthria/neurogenic bladder with IDC-UTIs/sepsis, multiple pneumonias, recent seizure-last one 07/03/20, incontinent of stool, pt h as had decubitus ulcer coccyx-sister unsure of skin condition at this time, past anemia r/t heparin/epistaxiis which involved nasal packing/transfusions, DVT bilateral arms, hypoxia, oxygen at 2L/NC, L femoral head fracture History of Any Multi-Drug Resistant Organisms: ESBL, MRSA Year Discovered:: 03/09/21-MRSA; 11/23/19 ESBL-E.coli MDRO Source:: Abdomen-Peg site MRSA; Urine -ESBL Past Surgical History: Tonsillectomy Additional Past Surgical History / Comment(s): Gastrostomy, peg tube, I&D coccyx decubitius, bronchoscopy, bilateral lasik eye surgery. Past Anesthesia/Blood Transfusion Reactions: No Reported Reaction Additional Past Anesthesia/Blood Transfusion Reaction / Comm: Pt has received blood in past without reaction. Past Psychological History: Depression Additional Psychological History / Comment(s): Pt resides at [facility]. He normally is in bed/amita lift to wheelchair. Has peg/IDC Smoking Status: Never smoker Past Alcohol Use History: None Reported Past Drug Use History: None Reported - Past Family History Father Family Medical History: Myocardial Infarction ([place]) Mother Family Medical History: Hypertension, Myocardial Infarction ([place]) Additional Family Medical History / Comment(s): Mother of a [place] at the age of 73 yrs. Medications and Allergies Home Medications Medication Instructions Recorded Confirmed Type Oxybutynin Chloride [Ditropan Oral 5 mg PEG/G-TUBE TID@0600,1400,2200 09/08/19 06/13/21 History Soln] Ipratropium-Albuterol Nebulize 3 ml INHALATION RT-Q6H PRN 12/16/19 06/13/21 History [Duoneb 0.5 mg-3 mg/3 ml Soln] Baclofen [Lioresal] 10 mg PEG/G-TUBE TID@0600,1400,2200 07/16/20 06/13/21 History carBAMazepine [TEGretol] 200 mg PEG/G-TUBE BID@0900,2100 07/30/20 06/13/21 History Scopolamine [Scopolamine 1 MG/72 1 patch TRANSDERM Q72H 09/07/20 06/13/21 History HR patch] Aspirin 81 mg PEG/G-TUBE DAILY@0900 11/27/20 06/13/21 History Cranberry Fruit Extract [Cranberry] 500 mg PEG/G-TUBE DAILY@89911/27/20 06/13/21 History amantadine HCL [Amantadine] 100 mg PEG/G-TUBE DAILY@0900 11/27/20 06/13/21 History Famotidine [Pepcid] 20 mg PEG/G-TUBE HS 03/07/21 06/13/21 History Lactulose 20 gm PEG/G-TUBE BID@0900,2100 03/07/21 06/13/21 History Magnesium Hydroxide [Milk of 7,200 mg PEG/G-TUBE Q72H PRN 03/07/21 06/13/21 History Magnesia Concentrate] Lacosamide [Vimpat] 150 mg PEG/G-TUBE BID@0900,2100 #6 05/10/21 06/13/21 Rx tab Acetaminophen Tab [Tylenol] 650 mg PEG/G-TUBE Q6H PRN 06/13/21 06/13/21 History Levofloxacin [Levaquin] 500 mg PEG/G-TUBE DAILY 06/13/21 06/13/21 History Metoprolol Tartrate [Lopressor] 25 mg PEG/G-TUBE Q12HR 06/13/21 06/13/21 History Metoprolol Tartrate [Lopressor] 50 mg PEG/G-TUBE Q12HR 06/13/21 06/13/21 History Allergies Allergy/AdvReac Type Severity Reaction Status Date / Time meropenem [From Merrem] Allergy Rash/Hives Verified 06/13/21 21:04 Physical Exam Vitals: Vital Signs Temp Pulse Pulse Resp BP BP Pulse Ox 06/14/21 08:20 108 H 06/14/21 06:57 98.6 F 105 H 18 112/70 99 06/14/21 01:12 105 H 18 114/83 97 06/14/21 00:27 99.1 F 107 H 18 127/88 96 06/14/21 00:21 112 H 06/14/21 00:11 108 H 06/13/21 22:00 94 18 187/125 96 06/13/21 21:00 90 18 156/115 96 06/13/21 17:47 97.3 F L 77 20 150/96 98 Intake and Output 06/13/21 06/14/21 06/14/21 22:59 06:59 14:59 Output Total 520 Balance -520 Output: Urine 520 Other: Voiding Method Indwelling Catheter Diaper Incontinent # Bowel Movements 0 Weight 81.647 kg 81.647 kg Results CBC & Chem 7: 06/14/21 06:22 06/14/21 06:22 Labs: Abnormal Lab Results - Last 24 Hours (Table) 06/13/21 06/13/21 06/14/21 Range/Units 19:00 20:05 01:11 WBC (4.50-10.00) X 10*3/uL Hgb (13.0-17.0) g/dL MCH (27.0-32.0) pg MCHC (32.0-37.0) g/dL RDW (11.5-14.5) % MPV (9.5-12.2) fL Sodium 136 L (137-145) mmol/L Chloride (98-107) mmol/L Carbon Dioxide (22-30) mmol/L BUN 22 H (9-20) mg/dL Creatinine 0.62 L (0.66-1.25) mg/dL Glucose (74-99) mg/dL Troponin I 0.037 H* (0.000-0.034) ng/mL Urine Protein Trace H (Negative) Urine Blood Large H (Negative) Ur Leukocyte Esterase Large H (Negative) Urine RBC >182 H (0-5) /hpf Urine WBC 51 H (0-5) /hpf Urine Bacteria Few H (None) /hpf 06/14/21 06/14/21 Range/Units 06:22 06:22 WBC 14.10 H (4.50-10.00) X 10*3/uL Hgb 12.6 L (13.0-17.0) g/dL MCH 24.8 L (27.0-32.0) pg MCHC 29.9 L (32.0-37.0) g/dL RDW 15.5 H (11.5-14.5) % MPV 12.3 H (9.5-12.2) fL Sodium (137-145) mmol/L Chloride 110 H (98-107) mmol/L Carbon Dioxide 15 L (22-30) mmol/L BUN (9-20) mg/dL Creatinine 0.64 L (0.66-1.25) mg/dL Glucose 103 H (74-99) mg/dL Troponin I (0.000-0.034) ng/mL Urine Protein (Negative) Urine Blood (Negative) Ur Leukocyte Esterase (Negative) Urine RBC (0-5) /hpf Urine WBC (0-5) /hpf Urine Bacteria (None) /hpf Microbiology - Last 24 Hours (Table) 06/13/21 20:05 Urine Culture - Preliminary Urine,Voided
[2021-06-15] MEDS ORDERED: VANCOMYCIN 1,500 MG in SODIUM CHLORIDE 0.9% 250 ML IVPB ONE (01:00)
[2021-06-15] MEDS: OXYBUTYNIN CHLORIDE 5 MG TAB PEG/G-TUBE SCH ×2 (05:32→15:23)
[2021-06-15] MEDS: BACLOFEN 10 MG TAB PEG/G-TUBE SCH ×2 (05:32→15:23)
[2021-06-15] MEDS: CEFEPIME 2 GM in SODIUM CHLORIDE 0.9% 100 ML IVPB SCH ×3 (07:05→15:23)
[2021-06-15] MEDS: SODIUM CHLORIDE 0.9% 1,000 ML IV SCH ×3 (07:08→13:51)
[2021-06-15 07:17] LABS: African American GFR (CKD) >90 (>60 ml/min/1.73 sqM); Anion Gap 9 mmol/L; Blood Urea Nitrogen 19 mg/dL (9-20); Calcium 8.3 mg/dL (8.4-10.2); Carbon Dioxide 20 mmol/L (22-30); Chloride 110 mmol/L (98-107); Glucose 115 mg/dL (74-99); Non-African American GFR(CKD) >90 (>60 ml/min/1.73 sqM); Potassium 4.6 mmol/L (3.5-5.1); Sodium 139 mmol/L (137-145)
[2021-06-15] MEDS: ASPIRIN 81 MG PEG/G-TUBE SCH (08:35)
[2021-06-15] MEDS: LACOSAMIDE 150 MG TABLET PEG/G-TUBE SCH ×2 (08:35→20:44)
[2021-06-15] MEDS: METOPROLOL TARTRATE 25 MG TAB PEG/G-TUBE SCH ×2 (08:36→20:44)
[2021-06-15] MEDS: LACTULOSE 20 GM/30 ML CUP PEG/G-TUBE SCH ×2 (08:36→20:44)
[2021-06-15] MEDS: METOPROLOL TARTRATE 50 MG TAB PEG/G-TUBE SCH ×2 (08:36→20:44)
[2021-06-15] MEDS: carBAMazepine 200 MG TAB PEG/G-TUBE SCH ×2 (08:37→20:43)
[2021-06-15 10:31] LABS: Basophils # (A) 0.02 X 10*3/uL (0.00-0.10); Basophils % (A) 0.2 %; Eosinophils # (A) 0.58 X 10*3/uL (0.04-0.35); Eosinophils % (A) 6.6 %; HCT 35.3 % (39.6-50.0); HGB 10.4 g/dL (13.0-17.0); Lymphocytes # (A) 1.05 X 10*3/uL (0.90-5.00); MCH 24.9 pg (27.0-32.0); MCHC 29.5 g/dL (32.0-37.0); MCV 84.7 fL (80.0-97.0); Monocytes % (A) 6.8 %; Neutrophils # (A) 6.46 X 10*3/uL (1.80-7.70); Neutrophils % (A) 73.7 %; Platelet Count 367 X 10*3/uL (140-440); RBC 4.17 X 10*6/uL (4.40-5.60); RDW 15.6 % (11.5-14.5); WBC 8.77 X 10*3/uL (4.50-10.00)
[2021-06-15 10:40] LABS: C Reactive Protein 6.6 mg/dL (<1.0)
[2021-06-15] MEDS ORDERED: VANCOMYCIN 1,250 MG in SODIUM CHLORIDE 0.9% 250 ML IVPB SCH ×2 (13:00→16:00)
[2021-06-15 13:24] LABS: Appearance,Urine Clear (Clear); Bacteria,Urine Rare /hpf; Bilirubin,Urine Negative (Negative); Blood,Urine Negative (Negative); Color,Urine Colorless; Glucose,Urine (UA) Negative (Negative); Ketones,Urine Negative (Negative); Leukocyte Esterase,Urine Large (Negative); Mucus,Urine Rare /hpf; Nitrite,Urine Negative (Negative); Protein,Urine Negative (Negative); RBC,Urine 4 /hpf (0-5); Specific Gravity,Urine 1.007 (1.001-1.035); Urobilinogen,Urine <2.0 mg/dL (<2.0); WBC,Urine 46 /hpf (0-5)
--- NOTE | 2021-06-15 13:35 | P.PN ---
Subjective Progress Note Date: 06/15/21 This is a 61-year-old male with a past medical history of multiple sclerosis at age 39, contractures of all extremities, PEG tube, DVT, gastroesophageal reflux disease, hypertension, and seizure disorder and currently resides at [facility]. Patient was brought to the emergency room for concerns for possible pneumonia and also found to have blood in the urine. Patient does have a chronic indwelling Stein catheter and has had multiple hospitalizations for pneumonia and urinary tract infections. Patient is nonverbal so most of the history was obtained from nursing, the chart, and sister who is his legal guardian. Patient was started on IV antibiotics in the form of Zithromax and Zosyn and infectious disease consulted and pending. Patient does have a chronic indwelling Stein catheter recommending to change the Stein catheter and urinalysis shows positive nitrates with large blood and large leukocyte esterase noted. COVID-19 was negative. White blood count on admission to the ER was 7.3 and hemoglobin was 13.6 with a sodium of 136 and current creatinine 0.62. Patient is also having mild fevers. Patient has PEG tube and is nothing by mouth and will consult dietitian to resume tube feedings. PEG tube site appears clean, dry, and intact on exam. Chest x-ray showed interstitial changes persist and could represent pulmonary vascular congestion, interstitial pneumonitis or atypical pneumonia. EKG shows normal sinus rhythm. 06/15/2021 Patient is seen and evaluated and follow-up this morning and blood cultures showing staph most likely contaminant and will repeat blood cultures. Infectious disease following and patient has been transitioned to cefepime and awaiting for culture finalization. Discussed with nursing staff about replacing indwelling Stein catheter with repeat urinalysis and culture. Preliminary urine culture showing gram-negative bacilli and await for finalization. Patient continues with low-grade intermittent fevers of 99.0 and 99.6 and will continue to monitor and treat with Tylenol. White blood count improved today at 8.77 and hemoglobin is 10.4, sodium is 139 with a potassium of 4.6, current creatinine is 0.61. CRP elevated at 6.6 temporal calcitonin elevated as well at 0.13. Tube feedings have been resumed and patient tolerating. Review of systems: Unable to obtain as patient is nonverbal Active Medications Acetaminophen (Acetaminophen Tab 325 Mg Tab) 650 mg PEG/G-TUBE Q6H PRN PRN Reason: Fever and/ or Pain Albuterol/Ipratropium (Ipratropium-Albuterol 3 Ml Neb) 3 ml INHALATION RT-Q6H PRN PRN Reason: Shortness Of Breath Last Admin: 06/14/21 11:53 Dose: 3 ml Documented by: Amantadine HCl (Amantadine Hcl 100 Mg Cap) 100 mg PO DAILY@0900 [facility] Last Admin: 06/15/21 08:37 Dose: 100 mg Documented by: Aspirin (Aspirin 81 Mg) 81 mg PEG/G-TUBE DAILY@0900 [facility] Last Admin: 06/15/21 08:35 Dose: 81 mg Documented by: Baclofen (Baclofen 10 Mg Tab) 10 mg PEG/G-TUBE TID@0600,1400,2200 [facility] Last Admin: 06/15/21 05:32 Dose: 10 mg Documented by: Carbamazepine (Carbamazepine 200 Mg Tab) 200 mg PEG/G-TUBE BID@899,2099 [facility] Last Admin: 06/15/21 08:37 Dose: 200 mg Documented by: Famotidine (Famotidine 8 Mg/Ml Oral.Susp) 20 mg PEG/G-TUBE HS [facility] Last Admin: 06/14/21 22:11 Dose: 20 mg Documented by: Cefepime HCl 2 gm/ Sodium (Chloride) 100 mls @ 25 mls/hr IVPB Q8HR [facility] Last Admin: 06/15/21 08:37 Dose: 25 mls/hr Documented by: Sodium Chloride (Saline 0.9%) 1,000 mls @ 75 mls/hr IV .[id number] [facility] Lacosamide (Lacosamide 150 Mg Tablet) 150 mg PEG/G-TUBE BID@899,2099 [facility] Last Admin: 06/15/21 08:35 Dose: 150 mg Documented by: Lactulose (Lactulose 20 Gm/30 Ml Cup) 20 gm PEG/G-TUBE BID@899,2099 [facility] Last Admin: 06/15/21 08:36 Dose: 20 gm Documented by: Magnesium Hydroxide (Magnesium Hydroxide 2,400 Mg/10 Ml Cup) 7,200 mg PEG/G- TUBE Q72H PRN PRN Reason: Constipation Metoprolol Tartrate (Metoprolol Tartrate 50 Mg Tab) 50 mg PEG/G-TUBE Q12HR [facility] Last Admin: 06/15/21 08:36 Dose: 50 mg Documented by: Metoprolol Tartrate (Metoprolol Tartrate 25 Mg Tab) 25 mg PEG/G-TUBE Q12HR [facility] Last Admin: 06/15/21 08:36 Dose: 25 mg Documented by: Miscellaneous Information ([facility] 1 each PO ONCE PRN PRN Reason: Per Protocol Oxybutynin Chloride (Oxybutynin Chloride 5 Mg Tab) 5 mg PEG/G-TUBE TID@0600,1400,2200 [facility] Last Admin: 06/15/21 05:32 Dose: 5 mg Documented by: Scopolamine (Scopolamine 1.5mg/72hr Patch) 1 patch TRANSDERM Q72H [facility] Last Admin: 06/14/21 12:46 Dose: 1 patch Documented by: Physical exam: Gen: This is a 61-year-old nonverbal male awake, thin built with multiple contractures of bilateral upper and lower extremities HEENT: Head is atraumatic, normocephalic. Pupils equal, round. Sclerae is anicteric. NECK: Supple. No JVD. No lymphadenopathy. No thyromegaly. LUNGS: Diminished breath sounds bilaterally with some scattered rhonchi and gurgling noted. HEART: Regular rate and rhythm. No murmur. ABDOMEN: Soft. Bowel sounds are present. No masses. No tenderness. PEG tube noted in the site is clean dry and intact EXTREMITIES: No pedal edema. No calf tenderness. Right lateral upper and lower extremity contractures NEUROLOGICAL: Patient is awake, alert and oriented x0-1. Assessment and plan: Sepsis, present on admission secondary to possible pneumonia and acute urinary tract infection Possible acute urinary tract infection with chronic indwelling Stein catheter Urine cultures preliminary showing gram-negative bacilli Hypertension Gastroesophageal reflux disease History of seizure disorder Multiple sclerosis at age 39 with multiple limb contractures History of multiple hospitalizations secondary to urinary tract infections and pneumonia History of DVT GI prophylaxis DVT prophylaxis Full code Plan: Recommend to continue with IV hydration but will be decreased to 75 ML per hour and continued antibiotics in the form of cefepime infectious disease following. Preliminary urine culture showing gram-negative bacilli and will await finalization. Discussed with nursing staff about replacing chronic indwelling Stein catheter with repeat urinalysis and culture. Patient did have 1 blood culture that was positive for Staphylococcus epidermidis which is most likely a contaminant and repeat blood culture thus far showing no growth after 24 hours. Will continue to monitor for clearance of bacteremia. Tube feedings resumed. Await for culture finalization of urine to determine discharge antibiotics. Repeat white blood count improved today at 8.77 and patient continues to have low grade intermittent fevers of 99.6 and will continue to monitor. Social work following as patient will be returning to [facility] once stabilized and discharged. Objective - Vital Signs Vital signs: Vital Signs Temp 99.0 F 06/15/21 07:22 Pulse 65 06/15/21 07:22 Resp 18 06/15/21 07:22 BP 122/75 06/15/21 07:22 Pulse Ox 95 06/15/21 07:22 Intake & Output 06/14/21 06/15/21 06/15/21 18:59 06:59 18:59 Output Total 900 Balance -900 Weight 75.5 kg 78.1 kg Output: Urine 900 Other: Voiding Method Diaper Incontinent - Labs CBC & Chem 7: 06/15/21 06:20 06/15/21 06:20 Labs: Abnormal Lab Results - Last 24 Hours (Table) 06/14/21 06/14/21 06/15/21 Range/Units 01:11 06:22 06:20 WBC 14.10 H (4.50-10.00) X 10*3/uL Hgb 12.6 L (13.0-17.0) g/dL MCH 24.8 L (27.0-32.0) pg MCHC 29.9 L (32.0-37.0) g/dL RDW 15.5 H (11.5-14.5) % MPV 12.3 H (9.5-12.2) fL Chloride 110 H (98-107) mmol/L Carbon Dioxide 20 L (22-30) mmol/L Creatinine 0.61 L (0.66-1.25) mg/dL Glucose 115 H (74-99) mg/dL Calcium 8.3 L (8.4-10.2) mg/dL Troponin I 0.037 H* (0.000-0.034) ng/mL Microbiology - Last 24 Hours (Table) 06/13/21 19:13 Blood Culture Gram Stain - Preliminary Blood Blood Culture - Preliminary Staphylococcus epidermidis 06/13/21 19:28 Blood Culture - Preliminary Blood No Growth after 24 hours 06/13/21 20:05 Urine Culture - Preliminary Urine,Voided Gram Neg Bacilli 06/13/21 19:13 Blood Culture - Final Blood
--- NOTE | 2021-06-15 16:57 | PN ---
PROGRESS NOTE DATE OF SERVICE: 06/15/2021 REASON FOR FOLLOWUP: UTI positive blood culture, likely contaminant. INTERVAL HISTORY: The patient is afebrile. The patient is currently breathing comfortably. The patient remains sleepy, lethargic and is unable to provide any history. No vomiting or diarrhea has been reported by the nursing staff. PHYSICAL EXAMINATION: Blood pressure 135/85, pulse of 83, temperature 98.7. He is 97% on room air. GENERAL DESCRIPTION: General description is a middle-aged male lying in bed in no distress. RESPIRATORY SYSTEM: Unlabored breathing. Coarse breath sounds bilaterally. No wheeze. HEART: S1, S2. Regular rate and rhythm. ABDOMEN: Soft. No tenderness. LABS: Hemoglobin is 10.4, white count 8.77, BUN of 19, creatinine 0.61. Urine is showing a Gram-negative. Blood culture with Staph epi. DIAGNOSTIC IMPRESSION AND PLAN: 1. Patient with positive blood culture with Staph epi, likely skin contaminant. Vancomycin will be discontinued. 2. Patient with catheter-associated urinary tract infection. Urine is showing a Gram- negative. Continue with cefepime, adjusting antibiotic further based on culture report. . MMODL / IJN: [id number] /
[2021-06-15] MEDS: FAMOTIDINE 8 MG/ML ORAL.SUSP PEG/G-TUBE SCH (20:43)
[2021-06-16] MEDS: OXYBUTYNIN CHLORIDE 5 MG TAB PEG/G-TUBE SCH ×4 (00:16→21:14)
[2021-06-16] MEDS: CEFEPIME 2 GM in SODIUM CHLORIDE 0.9% 100 ML IVPB SCH ×3 (00:16→15:55)
[2021-06-16] MEDS: BACLOFEN 10 MG TAB PEG/G-TUBE SCH ×4 (00:16→21:14)
[2021-06-16] MEDS: SODIUM CHLORIDE 0.9% 1,000 ML IV SCH ×2 (05:57→14:42)
[2021-06-16 06:57] LABS: African American GFR (CKD) >90 (>60 ml/min/1.73 sqM); Non-African American GFR(CKD) >90 (>60 ml/min/1.73 sqM)
[2021-06-16] MEDS: LACOSAMIDE 150 MG TABLET PEG/G-TUBE SCH ×2 (07:15→21:14)
[2021-06-16] MEDS: LACTULOSE 20 GM/30 ML CUP PEG/G-TUBE SCH ×2 (07:15→21:13)
[2021-06-16] MEDS: METOPROLOL TARTRATE 50 MG TAB PEG/G-TUBE SCH ×2 (07:16→21:14)
[2021-06-16] MEDS: METOPROLOL TARTRATE 25 MG TAB PEG/G-TUBE SCH ×2 (07:16→21:14)
[2021-06-16] MEDS: carBAMazepine 200 MG TAB PEG/G-TUBE SCH ×2 (07:16→21:14)
[2021-06-16] MEDS: ASPIRIN 81 MG PEG/G-TUBE SCH (07:16)
--- NOTE | 2021-06-16 15:22 | P.PN ---
Subjective Progress Note Date: 06/16/21 This is a 61-year-old male with a past medical history of multiple sclerosis at age 39, contractures of all extremities, PEG tube, DVT, gastroesophageal reflux disease, hypertension, and seizure disorder and currently resides at [facility]. Patient was brought to the emergency room for concerns for possible pneumonia and also found to have blood in the urine. Patient does have a chronic indwelling Stein catheter and has had multiple hospitalizations for pneumonia and urinary tract infections. Patient is nonverbal so most of the history was obtained from nursing, the chart, and sister who is his legal guardian. Patient was started on IV antibiotics in the form of Zithromax and Zosyn and infectious disease consulted and pending. Patient does have a chronic indwelling Stein catheter recommending to change the Stein catheter and urinalysis shows positive nitrates with large blood and large leukocyte esterase noted. COVID-19 was negative. White blood count on admission to the ER was 7.3 and hemoglobin was 13.6 with a sodium of 136 and current creatinine 0.62. Patient is also having mild fevers. Patient has PEG tube and is nothing by mouth and will consult dietitian to resume tube feedings. PEG tube site appears clean, dry, and intact on exam. Chest x-ray showed interstitial changes persist and could represent pulmonary vascular congestion, interstitial pneumonitis or atypical pneumonia. EKG shows normal sinus rhythm. 06/15/2021 Patient is seen and evaluated and follow-up this morning and blood cultures showing staph most likely contaminant and will repeat blood cultures. Infectious disease following and patient has been transitioned to cefepime and awaiting for culture finalization. Discussed with nursing staff about replacing indwelling Stein catheter with repeat urinalysis and culture. Preliminary urine culture showing gram-negative bacilli and await for finalization. Patient continues with low-grade intermittent fevers of 99.0 and 99.6 and will continue to monitor and treat with Tylenol. White blood count improved today at 8.77 and hemoglobin is 10.4, sodium is 139 with a potassium of 4.6, current creatinine is 0.61. CRP elevated at 6.6 temporal calcitonin elevated as well at 0.13. Tube feedings have been resumed and patient tolerating. 06/16/2021 Patient is seen this morning continues on IV antibiotics in the form of cefepime and vancomycin has been discontinued. Patient initial urine culture showing pseudomonas aeruginosa with some resistance and repeat blood culture is negative and awaiting for repeat urine culture after replacing chronic indwelling Stein catheter. Infectious disease following closely. Patient with continued fevers throughout the night and this morning being 102.1 and will continue with Tylenol through the PEG tube and use IV Tylenol as needed. Patient continues to be nonverbal and extremely lethargic although arousable. Will repeat a.m. labs. Review of systems: Unable to obtain as patient is nonverbal Active Medications Acetaminophen (Acetaminophen Tab 325 Mg Tab) 650 mg PEG/G-TUBE Q6H PRN PRN Reason: Fever and/ or Pain Last Admin: 06/16/21 07:21 Dose: 650 mg Documented by: Albuterol/Ipratropium (Ipratropium-Albuterol 3 Ml Neb) 3 ml INHALATION RT-Q6H PRN PRN Reason: Shortness Of Breath Last Admin: 06/14/21 11:53 Dose: 3 ml Documented by: Amantadine HCl (Amantadine Hcl 100 Mg Cap) 100 mg PO DAILY@0900 [facility] Last Admin: 06/16/21 07:17 Dose: 100 mg Documented by: Aspirin (Aspirin 81 Mg) 81 mg PEG/G-TUBE DAILY@0900 [facility] Last Admin: 06/16/21 07:16 Dose: 81 mg Documented by: Baclofen (Baclofen 10 Mg Tab) 10 mg PEG/G-TUBE TID@0600,1400,2200 [facility] Last Admin: 06/16/21 14:54 Dose: 10 mg Documented by: Carbamazepine (Carbamazepine 200 Mg Tab) 200 mg PEG/G-TUBE BID@0900,2100 [facility] Last Admin: 06/16/21 07:16 Dose: 200 mg Documented by: Famotidine (Famotidine 8 Mg/Ml Oral.Susp) 20 mg PEG/G-TUBE HS [facility] Last Admin: 06/15/21 20:43 Dose: 20 mg Documented by: Cefepime HCl 2 gm/ Sodium (Chloride) 100 mls @ 25 mls/hr IVPB Q8HR [facility] Last Admin: 06/16/21 07:17 Dose: 25 mls/hr Documented by: Sodium Chloride (Saline 0.9%) 1,000 mls @ 75 mls/hr IV .[id number] [facility] Last Admin: 06/16/21 14:42 Dose: Not Given Documented by: Lacosamide (Lacosamide 150 Mg Tablet) 150 mg PEG/G-TUBE BID@0900,2100 [facility] Last Admin: 06/16/21 07:15 Dose: 150 mg Documented by: Lactulose (Lactulose 20 Gm/30 Ml Cup) 20 gm PEG/G-TUBE BID@0900,2100 [facility] Last Admin: 06/16/21 07:15 Dose: 20 gm Documented by: Magnesium Hydroxide (Magnesium Hydroxide 2,400 Mg/10 Ml Cup) 7,200 mg PEG/G- TUBE Q72H PRN PRN Reason: Constipation Metoprolol Tartrate (Metoprolol Tartrate 50 Mg Tab) 50 mg PEG/G-TUBE Q12HR [facility] Last Admin: 06/16/21 07:16 Dose: 50 mg Documented by: Metoprolol Tartrate (Metoprolol Tartrate 25 Mg Tab) 25 mg PEG/G-TUBE Q12HR [facility] Last Admin: 06/16/21 07:16 Dose: 25 mg Documented by: Miscellaneous Information ([facility] 1 each PO ONCE PRN PRN Reason: Per Protocol Oxybutynin Chloride (Oxybutynin Chloride 5 Mg Tab) 5 mg PEG/G-TUBE TID@0600,1400,2200 [facility] Last Admin: 06/16/21 14:54 Dose: 5 mg Documented by: Scopolamine (Scopolamine 1.5mg/72hr Patch) 1 patch TRANSDERM Q72H [facility] Last Admin: 06/14/21 12:46 Dose: 1 patch Documented by: Physical exam: Gen: This is a 61-year-old nonverbal male lethargic although arousable for brief period and falls back asleep, thin built with multiple contractures of bilateral upper and lower extremities HEENT: Head is atraumatic, normocephalic. Pupils equal, round. Sclerae is anicteric. NECK: Supple. No JVD. No lymphadenopathy. No thyromegaly. LUNGS: Diminished breath sounds bilaterally with some scattered rhonchi and gurgling noted. HEART: Regular rate and rhythm. No murmur. ABDOMEN: Soft. Bowel sounds are present. No masses. No tenderness. PEG tube noted in the site is clean dry and intact EXTREMITIES: No pedal edema. No calf tenderness. Right lateral upper and lower extremity contractures NEUROLOGICAL: Patient is awake, alert and oriented x0-1. Assessment and plan: Sepsis, present on admission secondary to possible pneumonia and acute urinary tract infection acute urinary tract infection with chronic indwelling Stein catheter with cul tures growing pseudomonas aeruginosa Hypertension Gastroesophageal reflux disease History of seizure disorder Multiple sclerosis at age 39 with multiple limb contractures History of multiple hospitalizations secondary to urinary tract infections and pneumonia History of DVT GI prophylaxis DVT prophylaxis Full code Plan: Recommend to continue with IV hydration but will be decreased to 75 ML per hour and continued antibiotics in the form of cefepime infectious disease following. Initial urine culture showing Pseudomonas aeruginosa and repeat urine culture pending after changing chronic indwelling Stein catheter. Infectious disease following closely and will discuss about possible discharge antibiotics. Repeat blood culture remains negative for 24 hours. Will continue to monitor for deloris arance of bacteremia. Tube feedings resumed. patient continues to have low grade intermittent fevers max temp of 102.1 today and will continue to monitor. Social work following as patient will be returning to [place] once stabilized and discharged. Objective - Vital Signs Vital signs: Vital Signs Temp 97.1 F L 06/16/21 08:33 Pulse 89 06/16/21 08:00 Resp 14 06/16/21 08:00 BP 135/78 06/16/21 08:00 Pulse Ox 98 06/16/21 08:00 Intake & Output 06/15/21 06/16/21 06/16/21 18:59 06:59 18:59 Output Total 1600 1000 Balance -1600 -1000 Weight 75.5 kg Output: Urine 1600 1000 Other: Voiding Method Indwelling Catheter - Labs CBC & Chem 7: 06/15/21 06:20 06/16/21 05:34 Labs: Abnormal Lab Results - Last 24 Hours (Table) 06/15/21 06/15/21 06/15/21 Range/Units 06:20 06:20 06:20 RBC 4.17 L (4.40-5.60) X 10*6/uL Hgb 10.4 L (13.0-17.0) g/dL Hct 35.3 L (39.6-50.0) % MCH 24.9 L (27.0-32.0) pg MCHC 29.5 L (32.0-37.0) g/dL RDW 15.6 H (11.5-14.5) % Immature Gran # 0.06 H (0.00-0.04) X 10*3/uL Eosinophils # 0.58 H (0.04-0.35) X 10*3/uL Creatinine (0.66-1.25) mg/dL C-Reactive Protein 6.6 H (<1.0) mg/dL Procalcitonin 0.13 H (0.02-0.09) ng/mL Ur Leukocyte Esterase (Negative) Urine WBC (0-5) /hpf Urine Bacteria (None) /hpf Urine Mucus (None) /hpf 06/15/21 06/16/21 Range/Units 12:45 05:34 RBC (4.40-5.60) X 10*6/uL Hgb (13.0-17.0) g/dL Hct (39.6-50.0) % MCH (27.0-32.0) pg MCHC (32.0-37.0) g/dL RDW (11.5-14.5) % Immature Gran # (0.00-0.04) X 10*3/uL Eosinophils # (0.04-0.35) X 10*3/uL Creatinine 0.55 L (0.66-1.25) mg/dL C-Reactive Protein (<1.0) mg/dL Procalcitonin (0.02-0.09) ng/mL Ur Leukocyte Esterase Large H (Negative) Urine WBC 46 H (0-5) /hpf Urine Bacteria Rare H (None) /hpf Urine Mucus Rare H (None) /hpf Microbiology - Last 24 Hours (Table) 06/15/21 06:20 Blood Culture - Preliminary Blood No Growth after 24 hours 06/13/21 19:28 Blood Culture - Preliminary Blood No Growth after 48 hours 06/15/21 12:45 Urine Culture - Preliminary Urine,Clean Catch 06/13/21 20:05 Urine Culture - Final Urine,Voided Pseudomonas aeruginosa Pseudomonas aeruginosa#2 06/13/21 19:13 Blood Culture Gram Stain - Preliminary Blood Blood Culture - Preliminary Staphylococcus epidermidis
[2021-06-16] MEDS ORDERED: ACETAMINOPHEN IV (For NPO) 1,000 MG in EMPTY BAG 1 BAG IVPB PRN (18:29)
[2021-06-16] MEDS: IPRATROPIUM-ALBUTEROL 3 ML NEB INHALATION PRN (20:40)
[2021-06-16] MEDS: FAMOTIDINE 8 MG/ML ORAL.SUSP PEG/G-TUBE SCH (21:13)
--- NOTE | 2021-06-17 00:55 | PN ---
PROGRESS NOTE DATE OF SERVICE: 06/16/2021 REASON FOR FOLLOWUP: Pseudomonas catheter-associated urinary tract infection with a question of pneumonia. INTERVAL HISTORY: The patient did spike a fever this morning of 102 degrees Fahrenheit. The patient is afebrile since then. The patient is currently breathing comfortably on room air. He is hemodynamically stable. No vomiting or diarrhea has been reported by the nursing staff. PHYSICAL EXAMINATION: Blood pressure 147/94 with a pulse of 79, temperature 98.1. He is 99% on room air. GENERAL DESCRIPTION: General description is a middle-aged male lying in bed in no distress. RESPIRATORY SYSTEM: Unlabored breathing. Coarse breath sounds bilaterally. No wheeze. HEART: S1, S2. Regular rate and rhythm. ABDOMEN: Soft. No tenderness. LABS: White count normal at 8.77. Urine is showing Pseudomonas aeruginosa sensitive to cefepime. DIAGNOSTIC IMPRESSION AND PLAN: 1. Patient with a catheter-associated urinary tract infection with Pseudomonas. Patient is covered with cefepime. Planning for 7-10 days of IV cefepime, for which a midline should be obtained. 2. Positive blood culture with Staph epi, likely skin contaminant. Repeat blood culture has been negative so far. No need for vancomycin. MMODL / IJN: [id number] /
[2021-06-17] MEDS: CEFEPIME 2 GM in SODIUM CHLORIDE 0.9% 100 ML IVPB SCH ×2 (00:57→07:35)
[2021-06-17] MEDS: SODIUM CHLORIDE 0.9% 1,000 ML IV SCH (01:00)
[2021-06-17] MEDS: BACLOFEN 10 MG TAB PEG/G-TUBE SCH ×2 (05:55→13:22)
[2021-06-17] MEDS: OXYBUTYNIN CHLORIDE 5 MG TAB PEG/G-TUBE SCH ×2 (05:55→13:22)
[2021-06-17 06:57] VITALS: BP 144/87; PULSE 90; RESP 22; TEMP 98.2
[2021-06-17] MEDS: METOPROLOL TARTRATE 50 MG TAB PEG/G-TUBE SCH (07:35)
[2021-06-17] MEDS: LACOSAMIDE 150 MG TABLET PEG/G-TUBE SCH (07:35)
[2021-06-17] MEDS: METOPROLOL TARTRATE 25 MG TAB PEG/G-TUBE SCH (07:35)
[2021-06-17] MEDS: ASPIRIN 81 MG PEG/G-TUBE SCH (07:36)
[2021-06-17] MEDS: carBAMazepine 200 MG TAB PEG/G-TUBE SCH (07:36)
[2021-06-17] MEDS: LACTULOSE 20 GM/30 ML CUP PEG/G-TUBE SCH (07:36)
--- NOTE | 2021-06-17 13:11 | P.DS ---
Providers Date of admission: 06/13/21 20:51 Expected date of discharge: 06/17/21 Attending physician: Dara Crowe Consults: 06/13/21 20:51 Consult Physician Routine Consulting Provider: Sonal Farah Consult Reason/Comments: Pneumonia, UTI Do you want consulting provider notified?: Yes Primary care physician: Matteo Hernandez Hospital Course: Final diagnosis Sepsis, present on admission secondary to possible pneumonia and acute urinary tract infection acute urinary tract infection with chronic indwelling Stein catheter with cultures growing pseudomonas aeruginosa Hypertension Gastroesophageal reflux disease History of seizure disorder Multiple sclerosis at age 39 with multiple limb contractures History of multiple hospitalizations secondary to urinary tract infections and pneumonia History of DVT GI prophylaxis DVT prophylaxis Full code Discharge disposition Patient is being discharged in a stable condition with guarded prognosis to [facility]. Patient will follow-up with Dr. Hernandez upon discharge. Patient will continue on IV antibiotics in the form of cefepime 2 g every 8 hours for the next 10 days and patient did receive a midline. Total time taken is greater than 35 minutes. Hospital course This is a 61-year-old male with a past medical history of multiple sclerosis at age 39, contractures of all extremities, PEG tube, DVT, gastroesophageal reflux disease, hypertension, and seizure disorder and currently resides at [facility]. Patient was brought to the emergency room for concerns for possible pneumonia and also found to have blood in the urine. Patient does have a chronic indwelling Stein catheter and has had multiple hospitalizations for pneumonia and urinary tract infections. Patient is nonverbal so most of the history was obtained from nursing, the chart, and sister who is his legal guardian. Patient was started on IV antibiotics in the form of Zithromax and Zosyn and infectious disease consulted and pending. Patient does have a chronic indwelling Stein catheter recommending to change the Stein catheter and urinalysis shows positive nitrates with large blood and large leukocyte esterase noted. COVID-19 was negative. White blood count on admission to the ER was 7.3 and hemoglobin was 13.6 with a sodium of 136 and current creatinine 0.62. Patient is also having mild fevers. Patient has PEG tube and is nothing by mouth and will consult dietitian to resume tube feedings. PEG tube site appears clean, dry, and intact on exam. Chest x-ray showed interstitial changes persist and could represent pulmonary vascular congestion, interstitial pneumonitis or atypical pneumonia. EKG shows normal sinus rhythm. 06/15/2021 Patient is seen and evaluated and follow-up this morning and blood cultures showing staph most likely contaminant and will repeat blood cultures. Infectious disease following and patient has been transitioned to cefepime and awaiting for culture finalization. Discussed with nursing staff about replacing indwelling Stein catheter with repeat urinalysis and culture. Preliminary urine culture showing gram-negative bacilli and await for finalization. Patient continues with low-grade intermittent fevers of 99.0 and 99.6 and will continue to monitor and treat with Tylenol. White blood count improved today at 8.77 and hemoglobin is 10.4, sodium is 139 with a potassium of 4.6, current creatinine is 0.61. CRP elevated at 6.6 temporal calcitonin elevated as well at 0.13. Tube feedings have been resumed and patient tolerating. 06/16/2021 Patient is seen this morning continues on IV antibiotics in the form of cefepime and vancomycin has been discontinued. Patient initial urine culture showing pseudomonas aeruginosa with some resistance and repeat blood culture is negative and awaiting for repeat urine culture after replacing chronic indwelling Stein catheter. Infectious disease following closely. Patient with continued fevers throughout the night and this morning being 102.1 and will continue with Tylenol through the PEG tube and use IV Tylenol as needed. Patient continues to be nonverbal and extremely lethargic although arousable. Will repeat a.m. labs. 06/17/2021 Patient is seen in follow-up this morning and has been afebrile. Patient continues with chronic indwelling Stein catheter which was replaced 3 days ago and patient urine culture showing Pseudomonas aeruginosa and infectious disease following. Recommendations to continue with IV cefepime every 8 hours for the next 10 Days. Patient did receive a midline today. Recommend to continue aspiration precautions with head of the bed elevated 30-45 at all times and continue with tube feedings with same dosing. Currently no reports of chest pain, shortness of breath, or palpitations. Patient is afebrile. No reported episodes of vomiting noted. Patient will be going to [facility] today as he is a resident there. Guarded prognosis. On exam vital signs are stable. Cardio S1, S2 are muffled. Respiratory system shows diminished breath sounds at the bases with no wheezing or rhonchi noted. Abdomen is soft and nontender. Nervous system shows diffuse weakness. Please refer to medication reconciliation sheet for a list of medications. Patient Condition at Discharge: Stable Plan - Discharge Summary Discharge Rx Participant: No New Discharge Prescriptions: New Cefepime [Maxipime] 2 gm IVPB Q8HR 10 Days #30 each Continue Oxybutynin Chloride [Ditropan Oral Soln] 5 mg PEG/G-TUBE TID@0600,1400,2200 Ipratropium-Albuterol Nebulize [Duoneb 0.5 mg-3 mg/3 ml Soln] 3 ml INHALATION RT-Q6H PRN PRN Reason: Shortness Of Breath Baclofen [Lioresal] 10 mg PEG/G-TUBE TID@0600,1400,2199 carBAMazepine [TEGretol] 200 mg PEG/G-TUBE BID@899,2099 Scopolamine [Scopolamine 1 MG/72 HR patch] 1 patch TRANSDERM Q72H amantadine HCL [Amantadine] 100 mg PEG/G-TUBE DAILY@0900 Cranberry Fruit Extract [Cranberry] 500 mg PEG/G-TUBE DAILY@0900 Aspirin 81 mg PEG/G-TUBE DAILY@0900 Lactulose 20 gm PEG/G-TUBE BID@899,2099 Acetaminophen Tab [Tylenol] 650 mg PEG/G-TUBE Q6H PRN PRN Reason: Fever And/ Or Pain Famotidine [Pepcid] 20 mg PEG/G-TUBE HS Magnesium Hydroxide [Milk of Magnesia Concentrate] 7,200 mg PEG/G-TUBE Q72H PRN PRN Reason: Constipation Metoprolol Tartrate [Lopressor] 25 mg PEG/G-TUBE Q12HR Metoprolol Tartrate [Lopressor] 50 mg PEG/G-TUBE Q12HR Lacosamide [Vimpat] 150 mg PEG/G-TUBE BID@00,2099 #6 tab Discontinued Levofloxacin [Levaquin] 500 mg PEG/G-TUBE DAILY Discharge Medication List Oxybutynin Chloride [Ditropan Oral Soln] 5 mg PEG/G-TUBE TID@0600,1400,2200 09/08/19 [History] Ipratropium-Albuterol Nebulize [Duoneb 0.5 mg-3 mg/3 ml Soln] 3 ml INHALATION RT-Q6H PRN 12/16/19 [History] Baclofen [Lioresal] 10 mg PEG/G-TUBE TID@0600,1400,2200 07/16/20 [History] carBAMazepine [TEGretol] 200 mg PEG/G-TUBE BID@00,209907/30/20 [History] Scopolamine [Scopolamine 1 MG/72 HR patch] 1 patch TRANSDERM Q72H 09/07/20 [History] Aspirin 81 mg PEG/G-TUBE DAILY@89911/27/20 [History] Cranberry Fruit Extract [Cranberry] 500 mg PEG/G-TUBE DAILY@89911/27/20 [History] amantadine HCL [Amantadine] 100 mg PEG/G-TUBE DAILY@89911/27/20 [History] Famotidine [Pepcid] 20 mg PEG/G-TUBE HS 03/07/21 [History] Lactulose 20 gm PEG/G-TUBE BID@0900,2100 03/07/21 [History] Magnesium Hydroxide [Milk of Magnesia Concentrate] 7,200 mg PEG/G-TUBE Q72H PRN 03/07/21 [History] Acetaminophen Tab [Tylenol] 650 mg PEG/G-TUBE Q6H PRN 06/13/21 [History] Metoprolol Tartrate [Lopressor] 25 mg PEG/G-TUBE Q12HR 06/13/21 [History] Metoprolol Tartrate [Lopressor] 50 mg PEG/G-TUBE Q12HR 06/13/21 [History] Cefepime [Maxipime] 2 gm IVPB Q8HR 10 Days #30 each 06/17/21 [Rx] Lacosamide [Vimpat] 150 mg PEG/G-TUBE BID@899,2099 #6 tab 06/17/21 [Rx] Follow up Appointment(s)/Referral(s): Matteo Hernandez MD [Primary Care Provider] - 1-2 days Katie Peres, [NON-STAFF] - As Needed Ambulatory/Diagnostic Orders: Complete Blood Count w/diff [LAB.AMB] Time Frame: 3 Days, Location: None Selected Activity/Diet/Wound Care/Special Instructions: Patient is going to [facility] as tolerated Continue with tube feedings with home dosing Head of the bed elevated 30-45 at all times and maintaining strict aspiration precautions Continue with antibiotics every 8 hours for the next 10 days Follow-up primary care provider on discharge Recommend repeat CBC/BMP in 2-3 days Discharge Disposition: TRANSFER TO SNF/ECF
[2021-06-17] MEDS: SCOPOLAMINE 1.5MG/72HR PATCH TRANSDERM SCH (13:23)
--- NOTE | 2021-06-17 13:42 | PN ---
PROGRESS NOTE DATE OF SERVICE: 06/17/2021 REASON FOR FOLLOWUP: Pseudomonas catheter-associated urinary tract infection. INTERVAL HISTORY: The patient is afebrile. The patient is breathing comfortably on room air. He is hemodynamically stable. No vomiting or diarrhea diarrhea has reported by the nursing staff. PHYSICAL EXAMINATION: Blood pressure 144/87, pulse of 90, temperature 98.7. GENERAL DESCRIPTION: General description is a middle-aged male lying in bed in no distress. RESPIRATORY SYSTEM: Unlabored breathing. Clear to auscultation anteriorly. HEART: S1, S2. Regular rate and rhythm. ABDOMEN: Soft. No tenderness. LABS: No new labs have been obtained today. DIAGNOSTIC IMPRESSION AND PLAN: 1. Patient with Pseudomonas catheter-associated urinary tract infection, status post change of Stein catheter. He will continue with IV cefepime for another 10 days to finish course of therapy. 2. Possible Staph epi, likely skin contaminant. Repeat blood culture negative. No need for any further workup for the same. MMODL / IJN: [id number] /
[2021-06-17 15:07] VITALS: BMI 23.7
== END 2021-06-17 15:11 | DRG 698 ==
LOC: EC 17:40 → 4SSUR 20:51
PROVIDERS: ADMIT Hospitalist; ATTEND Hospitalist
PROC: 05H933Z Insertion of Infusion Device into Right Brachial Vein, Percutaneous Approach (ICD-10-PCS; principal; 2021-06-17 10:25)
DX: T83.511A Infection and inflammatory reaction due to indwelling urethral catheter, initial encounter (principal); J18.9 Pneumonia, unspecified organism; A41.52 Sepsis due to Pseudomonas; G82.20 Paraplegia, unspecified; Z43.1 Encounter for attention to gastrostomy; Z16.23 Resistance to quinolones and fluoroquinolones; G35 Multiple sclerosis; M62.49 Contracture of muscle, multiple sites; Z20.822 Contact with and (suspected) exposure to COVID-19; K21.9 Gastro-esophageal reflux disease without esophagitis; I10 Essential (primary) hypertension; N39.0 Urinary tract infection, site not specified; Y84.6 Urinary catheterization as the cause of abnormal reaction of the patient, or of later complication, without mention of misadventure at the time of the procedure; G40.909 Epilepsy, unspecified, not intractable, without status epilepticus; G31.84 Mild cognitive impairment of uncertain or unknown etiology; R13.10 Dysphagia, unspecified; Z93.1 Gastrostomy status; Z86.718 Personal history of other venous thrombosis and embolism; Z82.49 Family history of ischemic heart disease and other diseases of the circulatory system; Z79.899 Other long term (current) drug therapy; Z79.82 Long term (current) use of aspirin; G50.0 Trigeminal neuralgia; R47.1 Dysarthria and anarthria; N31.9 Neuromuscular dysfunction of bladder, unspecified; F32.9 Major depressive disorder, single episode, unspecified; R79.82 Elevated C-reactive protein (CRP); L89.159 Pressure ulcer of sacral region, unspecified stage; Z74.01 Bed confinement status
CPT/HCPCS: 36410; 36415; 71045; 76937; 80048; 80053; 81001; 82565; 83605; 84145; 84484; 85025; 85027; 85610; 85730; 86140; 87040; 87077; 87086; 87186; 87635; 93005; 94640; 99285

== ENCOUNTER 2021-07-02 19:48 | Inpatient (IN) | payer MEDICARE, OTHER ==
[2021-07-02] MEDS ORDERED: SODIUM CHLORIDE 0.9% 1,000 ML IV STA ×2 (19:56→22:15)
--- NOTE | 2021-07-02 20:03 | ED ---
SOB HPI - General Chief Complaint: Shortness of Breath Stated Complaint: Pneumonia Time Seen by Provider: 07/02/21 19:48 Source: EMS, RN notes reviewed Mode of arrival: EMS Limitations: language barrier, altered mental status, physical limitation - History of Present Illness Initial Comments: 61-year-old male history of MS and multiple medical problems who was just discharged earlier this week after being treated for a UTI and pneumonia inpatient. He apparently is not doing well and demonstrating increased shortness of breath cough and evidence of failure of outpatient treatment. Is brought in by EMS for evaluation. No nausea no vomiting no reports of fevers chills or sweats patient himself is a poor historian and unable to render any information. MD Complaint: shortness of breath - Related Data Home Medications Medication Instructions Recorded Confirmed Oxybutynin Chloride [Ditropan Oral 5 mg PEG/G-TUBE TID@0600,1400,2200 09/08/19 07/02/21 Soln] Ipratropium-Albuterol Nebulize 3 ml INHALATION RT-Q6H PRN 12/16/19 07/02/21 [Duoneb 0.5 mg-3 mg/3 ml Soln] Baclofen [Lioresal] 10 mg PEG/G-TUBE TID@0600,1400,2200 07/16/20 07/02/21 Scopolamine [Scopolamine 1 MG/72 1 patch TRANSDERM Q72H 09/07/20 07/02/21 HR patch] Aspirin 81 mg PEG/G-TUBE DAILY@0900 11/27/20 07/02/21 Cranberry Fruit Extract [Cranberry] 500 mg PEG/G-TUBE DAILY@89911/27/20 07/02/21 amantadine HCL [Amantadine] 100 mg PEG/G-TUBE DAILY@00 11/27/20 07/02/21 Famotidine [Pepcid] 20 mg PEG/G-TUBE HS 03/07/21 07/02/21 Lactulose 20 gm PEG/G-TUBE BID@0900,2100 03/07/21 07/02/21 Magnesium Hydroxide [Milk of 7,200 mg PEG/G-TUBE Q72H PRN 03/07/21 07/02/21 Magnesia Concentrate] Acetaminophen Tab [Tylenol] 650 mg PEG/G-TUBE Q6H PRN MDD 06/13/21 07/02/21 3GM/24HR Metoprolol Tartrate [Lopressor] 25 mg PEG/G-TUBE Q12HR 06/13/21 07/02/21 Metoprolol Tartrate [Lopressor] 50 mg PEG/G-TUBE Q12HR 06/13/21 07/02/21 Cholecalciferol [Vitamin D3 (25 25 mcg PEG/G-TUBE DAILY 07/02/21 07/02/21 Mcg = 1000 Iu)] carBAMazepine [carBAMazepine Oral 200 mg PEG/G-TUBE BID@0900,2100 07/02/21 07/02/21 Susp] guaiFENesin [guaiFENesin Oral 200 mg PEG/G-TUBE Q6H 07/02/21 07/02/21 Solution] Previous Rx's Medication Instructions Recorded Lacosamide [Vimpat] 150 mg PEG/G-TUBE BID@0900,2100 #6 06/17/21 tab Allergies Allergy/AdvReac Type Severity Reaction Status Date / Time meropenem [From Merrem] Allergy Rash/Hives Verified 07/02/21 20:51 Review of Systems ROS Statement: Those systems with pertinent positive or pertinent negative responses have been documented in the HPI. ROS Other: All systems not noted in ROS Statement are negative. Past Medical History Past Medical History: Deep Vein Thrombosis (DVT), GERD/Reflux, Hypertension, Musculoskeletal Disorder, Neurologic Disorder, Pneumonia, Seizure Disorder, Skin Disorder Additional Past Medical History / Comment(s): Pt diagnosed with MS at the age of 39 yrs, eizure/pneumonia/UTI with sepsis/respirtory failure/vented, cognitive impairment, sister states when he is feeling well he could speak a few words/nod head appropriately/give thumbs up/roll eyes but when ill is nonverbal, pt has dysphagia/NPO with peg tube, contractures, last seizure 07/2020, trigeminal neuralgia, dysarthria/anarthria/neurogenic bladder with IDC-UTIs/sepsis, multiple pneumonias, recent seizure-last one 07/03/20, incontinent of stool, pt has had decubitus ulcer coccyx-sister unsure of skin condition at this time, past anemia r/t heparin/epistaxiis which involved nasal packing/transfusions, DVT bilateral arms, hypoxia, oxygen at 2L/NC, L femoral head fracture History of Any Multi-Drug Resistant Organisms: ESBL, MRSA Date of last positivie culture/infection: 03/09/21-MRSA; 11/23/19 ESBL-E.coli MDRO Source:: Abdomen-Peg site MRSA; Urine -ESBL Past Surgical History: Tonsillectomy Additional Past Surgical History / Comment(s): Gastrostomy, peg tube, I&D coccyx decubitius, bronchoscopy, bilateral lasik eye surgery. Past Anesthesia/Blood Transfusion Reactions: No Reported Reaction Additional Past Anesthesia/Blood Transfusion Reaction / Comment(s): Pt has received blood in past without reaction. Past Psychological History: Depression Smoking Status: Never smoker Past Alcohol Use History: None Reported Past Drug Use History: None Reported - Past Family History Father Family Medical History: Myocardial Infarction ([place]) Mother Family Medical History: Hypertension, Myocardial Infarction ([place]) Additional Family Medical History / Comment(s): Mother of a [place] at the age of 73 yrs. General Exam - General Exam Comments Initial Comments: This a well-developed male who is awake alert but nonverbal. Limitations: language barrier, altered mental status, physical limitation General appearance: alert, in no apparent distress Head exam: Present: atraumatic, normocephalic, normal inspection Eye exam: Present: normal appearance, PERRL, EOMI. Absent: scleral icterus, conjunctival injection, periorbital swelling ENT exam: Present: mucous membranes dry Neck exam: Present: normal inspection. Absent: tenderness, meningismus, lymphadenopathy Respiratory exam: Present: rhonchi, decreased breath sounds. Absent: respiratory distress, wheezes, rales, stridor Cardiovascular Exam: Present: regular rate, normal rhythm, normal heart sounds. Absent: systolic murmur, diastolic murmur, rubs, gallop, clicks GI/Abdominal exam: Present: soft, normal bowel sounds. Absent: distended, tenderness, guarding, rebound, rigid Extremities exam: Present: normal inspection, full ROM, normal capillary refill. Absent: tenderness, pedal edema, joint swelling, calf tenderness Back exam: Present: normal inspection Neurological exam: Present: alert, oriented X3, CN II-XII intact Psychiatric exam: Present: normal affect, normal mood Skin exam: Present: warm, dry, intact, normal color. Absent: rash Course Vital Signs 07/02/21 19:50 Temperature 98.7 F Pulse Rate 86 Respiratory 17 Rate Blood Pressure 136/101 O2 Sat by Pulse 96 Oximetry Medical Decision Making - Medical Decision Making Patient will be admitted I did discuss case Dr. Crowe evidence of failed outpatient treatment pneumonia mildly elevated troponin CT chest will be performed - Lab Data Result diagrams: 07/02/21 20:03 07/02/21 20:03 Lab Results 07/02/21 07/02/21 07/02/21 Range/Units 20:03 20:03 20:03 WBC 12.1 H (3.8-10.6) k/uL RBC 5.01 (4.30-5.90) m/uL Hgb 12.7 L (13.0-17.5) gm/dL Hct 40.9 (39.0-53.0) % MCV 81.6 (80.0-100.0) fL MCH 25.4 (25.0-35.0) pg MCHC 31.1 (31.0-37.0) g/dL RDW 15.7 H (11.5-15.5) % Plt Count 330 (150-450) k/uL MPV 8.5 Neutrophils % 77 % Lymphocytes % 10 % Monocytes % 6 % Eosinophils % 4 % Basophils % 1 % Neutrophils # 9.4 H (1.3-7.7) k/uL Lymphocytes # 1.2 (1.0-4.8) k/uL Monocytes # 0.8 (0-1.0) k/uL Eosinophils # 0.5 (0-0.7) k/uL Basophils # 0.1 (0-0.2) k/uL PT 10.9 (9.0-12.0) sec INR 1.0 (<1.2) APTT 25.7 (22.0-30.0) sec D-Dimer 1.04 H (<0.60) mg/L FEU Sodium 135 L (137-145) mmol/L Potassium 4.5 (3.5-5.1) mmol/L Chloride 104 (98-107) mmol/L Carbon Dioxide 24 (22-30) mmol/L Anion Gap 7 mmol/L BUN 20 (9-20) mg/dL Creatinine 0.54 L (0.66-1.25) mg/dL Est GFR (CKD-EPI)AfAm >90 (>60 ml/min/1.73 sqM) Est GFR (CKD-EPI)NonAf >90 (>60 ml/min/1.73 sqM) Glucose 88 (74-99) mg/dL Plasma Lactic Acid Taurus (0.7-2.0) mmol/L Calcium 8.4 (8.4-10.2) mg/dL Magnesium 2.1 (1.6-2.3) mg/dL Total Bilirubin 0.4 (0.2-1.3) mg/dL AST 31 (17-59) U/L ALT 18 (4-49) U/L Alkaline Phosphatase 124 (38-126) U/L Creatine Kinase 49 L (55-170) U/L Troponin I (0.000-0.034) ng/mL NT-Pro-B Natriuret Pep pg/mL Total Protein 7.0 (6.3-8.2) g/dL Albumin 3.6 (3.5-5.0) g/dL Influenza Type A (PCR) (Not Detectd) Influenza Type B (PCR) (Not Detectd) RSV (PCR) (Not Detectd) SARS-CoV-2 (PCR) (Not Detectd) 07/02/21 07/02/21 07/02/21 Range/Units 20:03 20:03 20:03 WBC (3.8-10.6) k/uL RBC (4.30-5.90) m/uL Hgb (13.0-17.5) gm/dL Hct (39.0-53.0) % MCV (80.0-100.0) fL MCH (25.0-35.0) pg MCHC (31.0-37.0) g/dL RDW (11.5-15.5) % Plt Count (150-450) k/uL MPV Neutrophils % % Lymphocytes % % Monocytes % % Eosinophils % % Basophils % % Neutrophils # (1.3-7.7) k/uL Lymphocytes # (1.0-4.8) k/uL Monocytes # (0-1.0) k/uL Eosinophils # (0-0.7) k/uL Basophils # (0-0.2) k/uL PT (9.0-12.0) sec INR (<1.2) APTT (22.0-30.0) sec D-Dimer (<0.60) mg/L FEU Sodium (137-145) mmol/L Potassium (3.5-5.1) mmol/L Chloride (98-107) mmol/L Carbon Dioxide (22-30) mmol/L Anion Gap mmol/L BUN (9-20) mg/dL Creatinine (0.66-1.25) mg/dL Est GFR (CKD-EPI)AfAm (>60 ml/min/1.73 sqM) Est GFR (CKD-EPI)NonAf (>60 ml/min/1.73 sqM) Glucose (74-99) mg/dL Plasma Lactic Acid Taurus 1.0 (0.7-2.0) mmol/L Calcium (8.4-10.2) mg/dL Magnesium (1.6-2.3) mg/dL Total Bilirubin (0.2-1.3) mg/dL AST (17-59) U/L ALT (4-49) U/L Alkaline Phosphatase (38-126) U/L Creatine Kinase (55-170) U/L Troponin I 0.035 H* (0.000-0.034) ng/mL NT-Pro-B Natriuret Pep 587 pg/mL Total Protein (6.3-8.2) g/dL Albumin (3.5-5.0) g/dL Influenza Type A (PCR) (Not Detectd) Influenza Type B (PCR) (Not Detectd) RSV (PCR) (Not Detectd) SARS-CoV-2 (PCR) (Not Detectd) 07/02/21 Range/Units 20:46 WBC (3.8-10.6) k/uL RBC (4.30-5.90) m/uL Hgb (13.0-17.5) gm/dL Hct (39.0-53.0) % MCV (80.0-100.0) fL MCH (25.0-35.0) pg MCHC (31.0-37.0) g/dL RDW (11.5-15.5) % Plt Count (150-450) k/uL MPV Neutrophils % % Lymphocytes % % Monocytes % % Eosinophils % % Basophils % % Neutrophils # (1.3-7.7) k/uL Lymphocytes # (1.0-4.8) k/uL Monocytes # (0-1.0) k/uL Eosinophils # (0-0.7) k/uL Basophils # (0-0.2) k/uL PT (9.0-12.0) sec INR (<1.2) APTT (22.0-30.0) sec D-Dimer (<0.60) mg/L FEU Sodium (137-145) mmol/L Potassium (3.5-5.1) mmol/L Chloride (98-107) mmol/L Carbon Dioxide (22-30) mmol/L Anion Gap mmol/L BUN (9-20) mg/dL Creatinine (0.66-1.25) mg/dL Est GFR (CKD-EPI)AfAm (>60 ml/min/1.73 sqM) Est GFR (CKD-EPI)NonAf (>60 ml/min/1.73 sqM) Glucose (74-99) mg/dL Plasma Lactic Acid Taurus (0.7-2.0) mmol/L Calcium (8.4-10.2) mg/dL Magnesium (1.6-2.3) mg/dL Total Bilirubin (0.2-1.3) mg/dL AST (17-59) U/L ALT (4-49) U/L Alkaline Phosphatase (38-126) U/L Creatine Kinase (55-170) U/L Troponin I (0.000-0.034) ng/mL NT-Pro-B Natriuret Pep pg/mL Total Protein (6.3-8.2) g/dL Albumin (3.5-5.0) g/dL Influenza Type A (PCR) Not Detected (Not Detectd) Influenza Type B (PCR) Not Detected (Not Detectd) RSV (PCR) Not Detected (Not Detectd) SARS-CoV-2 (PCR) Not Detected (Not Detectd) - Radiology Data Radiology results: report reviewed (Imaging reviewed evidence of a right lower lobe markings atelectasis versus pneumonia.), image reviewed Disposition Clinical Impression: Pneumonia, Failure of outpatient treatment, Elevated troponin, Elevated d-dimer Disposition: ADMITTED IP TO THIS [facility] Condition: Fair Referrals: Matteo Hernandez MD [Primary Care Provider] - 1-2 days
[2021-07-02 20:37] LABS: Basophils # (A) 0.1 k/uL (0-0.2); Basophils % (A) 1 %; Eosinophils # (A) 0.5 k/uL (0-0.7); Eosinophils % (A) 4 %; HCT 40.9 % (39.0-53.0); HGB 12.7 gm/dL (13.0-17.5); Lymphocytes # (A) 1.2 k/uL (1.0-4.8); Lymphocytes % (A) 10 %; MCH 25.4 pg (25.0-35.0); MCHC 31.1 g/dL (31.0-37.0); MCV 81.6 fL (80.0-100.0); Mean Platelet Volume 8.5; Monocytes # (A) 0.8 k/uL (0-1.0); Monocytes % (A) 6 %; Neutrophils # (A) 9.4 k/uL (1.3-7.7); Neutrophils % (A) 77 %; Platelet Count 330 k/uL (150-450); RBC 5.01 m/uL (4.30-5.90); RDW 15.7 % (11.5-15.5); WBC 12.1 k/uL (3.8-10.6)
[2021-07-02 20:50] LABS: ALT 18 U/L (4-49); AST 31 U/L (17-59); African American GFR (CKD) >90 (>60 ml/min/1.73 sqM); Albumin 3.6 g/dL (3.5-5.0); Alkaline Phosphatase 124 U/L (38-126); Anion Gap 7 mmol/L; Blood Urea Nitrogen 20 mg/dL (9-20); Calcium 8.4 mg/dL (8.4-10.2); Carbon Dioxide 24 mmol/L (22-30); Chloride 104 mmol/L (98-107); Creatine Kinase 49 U/L (55-170); Glucose 88 mg/dL (74-99); Magnesium 2.1 mg/dL (1.6-2.3); Non-African American GFR(CKD) >90 (>60 ml/min/1.73 sqM); Potassium 4.5 mmol/L (3.5-5.1); Sodium 135 mmol/L (137-145); Total Bilirubin 0.4 mg/dL (0.2-1.3)
[2021-07-02 21:10] LABS: Partial Thromboplastin Time 25.7 sec (22.0-30.0); Prothrombin Time 10.9 sec (9.0-12.0)
--- NOTE | 2021-07-02 21:31 | XR ---
EXAMINATION TYPE: XR chest 2V DATE OF EXAM: 07/02/2021 COMPARISON: 06/14/2021 HISTORY: Pneumonia TECHNIQUE: 2 views FINDINGS: There is no heart failure nor confluent pneumonic infiltrate. There is some linear density right lung base. There are no hilar masses. IMPRESSION: There is some atelectasis right lung base which is slightly worse than old exam. No heart failure.
[2021-07-02] MEDS ORDERED: PNEUMONIA PROTOCOL UTILIZED 1 EACH MISC PO PRN (22:11)
[2021-07-02] MEDS ORDERED: ACETAMINOPHEN TAB 325 MG TAB PEG/G-TUBE PRN (22:13)
[2021-07-02] MEDS ORDERED: IPRATROPIUM-ALBUTEROL 3 ML NEB INHALATION PRN (22:13)
[2021-07-02] MEDS ORDERED: MAGNESIUM HYDROXIDE 2,400 MG/10 ML CUP PEG/G-TUBE PRN (22:13)
[2021-07-02] MEDS ORDERED: SODIUM CHLORIDE 0.9% 1,000 ML IV SCH (22:15)
[2021-07-02] MEDS ORDERED: NITROGLYCERIN SL TABS 0.4 MG TAB SUBLINGUAL PRN (22:16)
[2021-07-02] MEDS ORDERED: AZITHROMYCIN 500 MG in SODIUM CHLORIDE 0.9% 250 ML IVPB ONE (22:30)
--- NOTE | 2021-07-02 23:05 | CT ---
EXAMINATION TYPE: CT angio chest DATE OF EXAM: 07/02/2021 COMPARISON: 08/10/2020 HISTORY: elevated d-dimer CT DLP: 459.9 mGycm Automated exposure control for dose reduction was used. CONTRAST: Performed with IV Contrast, patient injected with 80 mL of Isovue 370. There are 3-D post processed images. There is some infiltrate and atelectasis in both lower lung prater. Heart appears normal. There is no pericardial effusion. Thoracic aorta is intact. There is no aneurysm or dissection. There is no evid ence of filling defect in the pulmonary arteries. There is mild right bronchial adenopathy. The thora cic spine is intact. There is no compression fracture. There are some anterior mediastinal lymph node s that measure up to 11 mm. IMPRESSION: Bilateral lower lobe patchy infiltrate and atelectasis which is similar to old exam. Mild right bronc hial adenopathy unchanged. No evidence of pulmonary embolism.
[2021-07-02] MEDS: guaiFENesin SYRUP 100MG/5ML 200 MG/10 ML CUP PEG/G-TUBE SCH (23:47)
[2021-07-03] MEDS: SCOPOLAMINE 1.5MG/72HR PATCH TRANSDERM SCH (01:58)
[2021-07-03] MEDS: BACLOFEN 10 MG TAB PEG/G-TUBE SCH ×3 (05:48→21:50)
[2021-07-03] MEDS: OXYBUTYNIN CHLORIDE 5 MG TAB PEG/G-TUBE SCH ×3 (05:48→21:51)
[2021-07-03] MEDS: guaiFENesin SYRUP 100MG/5ML 200 MG/10 ML CUP PEG/G-TUBE SCH ×4 (05:48→21:51)
--- NOTE | 2021-07-03 07:03 | XR ---
EXAMINATION TYPE: XR chest 1V DATE OF EXAM: 07/03/2021 CLINICAL HISTORY: Difficulty breathing progress pneumonia study. TECHNIQUE: Single AP portable frontal view of the chest is obtained. COMPARISON: Chest x-ray and CTA chest from one day earlier and older studies FINDINGS: Mild reticular interstitial prominence bilaterally. Persistent low lung volumes with patch y right basilar opacity. Cardiac silhouette size is stable and within normal limits. Osseous structur es are demineralized. There is old lateral left fourth rib fracture noted. IMPRESSION: Low lung volumes redemonstrated. Suspect bilateral mild interstitial edema on background chronic parenchymal changes. Stable patchy right greater than left bibasilar atelectasis and/or infil trate. No significant change from one day earlier.
[2021-07-03] MEDS ORDERED: NON FORMULARY DRUG (Cranberry Fruit Extract [Cranberry] 500 MG Tablet) PEG/G-TUBE SCH (09:00)
[2021-07-03] MEDS ORDERED: METOPROLOL TARTRATE 25 MG TAB PEG/G-TUBE SCH (09:00)
[2021-07-03] MEDS: LACTULOSE 20 GM/30 ML CUP PEG/G-TUBE SCH ×2 (10:23→21:51)
[2021-07-03] MEDS: carBAMazepine 200 MG TAB PEG/G-TUBE SCH ×2 (10:23→21:51)
[2021-07-03] MEDS: ASPIRIN 81 MG PEG/G-TUBE SCH (10:24)
[2021-07-03] MEDS: METOPROLOL TARTRATE 25 MG TAB PEG/G-TUBE SCH ×2 (10:24→21:50)
[2021-07-03] MEDS: LACOSAMIDE 150 MG TABLET PEG/G-TUBE SCH ×2 (10:24→21:51)
[2021-07-03] MEDS: CHOLECALCIFEROL 25 MCG (1000 IU) TABLET PEG/G-TUBE SCH (10:24)
[2021-07-03 12:09] LABS: Chol/HDL Ratio 3.2 Ratio; HDL Cholesterol 40.9 mg/dL (40.00-60.00); LDL Cholesterol,Calculated 76.6 mg/dL (0.0-131.0); Triglycerides 67.3 mg/dL (0.00-149.00); VLDL Calculation 13.46 mg/dL (5.00-40.00)
--- NOTE | 2021-07-03 18:57 | P.HPIM ---
History of Present Illness H&P Date: 07/03/21 Chief Complaint: Altered mental status 61-year-old male history of MS and multiple medical problems who was just discharged earlier this week after being treated for a UTI and pneumonia inpatient. He apparently is not doing well and demonstrating increased shortness of breath cough and evidence of failure of outpatient treatment. Is brought in by EMS for evaluation. No nausea no vomiting no reports of fevers chills or sweats patient himself is a poor historian and unable to render any information. Patient is unable to provide any history so all information is obtained from patient's chart Workup in ED revealed elevated troponin and d-dimer; patient is admitted for failed outpatient treatment for pneumonia Review of Systems ROS unobtainable: due to mental status Past Medical History Past Medical History: Deep Vein Thrombosis (DVT), GERD/Reflux, Hypertension, Musculoskeletal Disorder, Neurologic Disorder, Pneumonia, Seizure Disorder, Skin Disorder Additional Past Medical History / Comment(s): Pt diagnosed with MS at the age of 39 yrs, eizure/pneumonia/UTI with sepsis/respirtory failure/vented, cognitive impairment, sister states when he is feeling well he could speak a few words/nod head appropriately/give thumbs up/roll eyes but when ill is nonverbal, pt has dysphagia/NPO with peg tube, contractures, last seizure 07/2020, trigeminal neuralgia, dysarthria/anarthria/neurogenic bladder with IDC-UTIs/sepsis, multiple pneumonias, recent seizure-last one 07/03/20, incontinent of stool, pt has had decubitus ulcer coccyx-sister unsure of skin condition at this time, past anemia r/t heparin/epistaxiis which involved nasal packing/transfusions, DVT bilateral arms, hypoxia, oxygen at 2L/NC, L femoral head fracture History of Any Multi-Drug Resistant Organisms: ESBL, MRSA Date of last positivie culture/infection: 03/09/21-MRSA; 11/23/19 ESBL-E.coli MDRO Source:: Abdomen-Peg site MRSA; Urine -ESBL Past Surgical History: Tonsillectomy Additional Past Surgical History / Comment(s): Gastrostomy, peg tube, I&D coccyx decubitius, bronchoscopy, bilateral lasik eye surgery. Past Anesthesia/Blood Transfusion Reactions: No Reported Reaction Additional Past Anesthesia/Blood Transfusion Reaction / Comment(s): Pt has received blood in past without reaction. Past Psychological History: Depression Additional Psychological History / Comment(s): Pt resides at [facility]. He normally is in bed/amita lift to wheelchair. Has peg/IDC Smoking Status: Never smoker Past Alcohol Use History: None Reported Past Drug Use History: None Reported - Past Family History Father Family Medical History: Myocardial Infarction ([place]) Mother Family Medical History: Hypertension, Myocardial Infarction ([place]) Additional Family Medical History / Comment(s): Mother of a [place] at the age of 73 yrs. Medications and Allergies Home Medications Medication Instructions Recorded Confirmed Type Oxybutynin Chloride [Ditropan Oral 5 mg PEG/G-TUBE TID@0600,1400,2200 09/08/19 07/02/21 History Soln] Ipratropium-Albuterol Nebulize 3 ml INHALATION RT-Q6H PRN 12/16/19 07/02/21 Hi story [Duoneb 0.5 mg-3 mg/3 ml Soln] Baclofen [Lioresal] 10 mg PEG/G-TUBE TID@0600,1400,2200 07/16/20 07/02/21 History Scopolamine [Scopolamine 1 MG/72 1 patch TRANSDERM Q72H 09/07/20 07/02/21 History HR patch] Aspirin 81 mg PEG/G-TUBE DAILY@0900 11/27/20 07/02/21 History Cranberry Fruit Extract [Cranberry] 500 mg PEG/G-TUBE DAILY@0911/27/20 07/02/21 History amantadine HCL [Amantadine] 100 mg PEG/G-TUBE DAILY@89911/27/20 07/02/21 History Famotidine [Pepcid] 20 mg PEG/G-TUBE HS 03/07/21 07/02/21 History Lactulose 20 gm PEG/G-TUBE BID@0900,2100 03/07/21 07/02/21 History Magnesium Hydroxide [Milk of 7,200 mg PEG/G-TUBE Q72H PRN 03/07/21 07/02/21 History Magnesia Concentrate] Acetaminophen Tab [Tylenol] 650 mg PEG/G-TUBE Q6H PRN MDD 06/13/21 07/02/21 History 3GM/24HR Metoprolol Tartrate [Lopressor] 25 mg PEG/G-TUBE Q12HR 06/13/21 07/02/21 History Metoprolol Tartrate [Lopressor] 50 mg PEG/G-TUBE Q12HR 06/13/21 07/02/21 History Lacosamide [Vimpat] 150 mg PEG/G-TUBE BID@0900,2100 #6 06/17/21 07/02/21 Rx tab Cholecalciferol [Vitamin D3 (25 25 mcg PEG/G-TUBE DAILY 07/02/21 07/02/21 History Mcg = 1000 Iu)] carBAMazepine [carBAMazepine Oral 200 mg PEG/G-TUBE BID@0900,2100 07/02/21 07/02/21 History Susp] guaiFENesin [guaiFENesin Oral 200 mg PEG/G-TUBE Q6H 07/02/21 07/02/21 History Solution] Allergies Allergy/AdvReac Type Severity Reaction Status Date / Time meropenem [From Merrem] Allergy Rash/Hives Verified 07/02/21 20:51 Physical Exam Vitals: Vital Signs Temp Pulse Pulse Resp BP BP Pulse Ox 07/03/21 08:43 96 07/03/21 04:00 98.4 F 59 L 16 134/80 98 07/03/21 02:34 97 07/03/21 02:00 59 L 25 H 07/02/21 22:37 72 19 141/87 99 07/02/21 19:50 98.7 F 86 17 136/101 96 Intake and Output 07/02/21 07/03/21 07/03/21 22:59 06:59 14:59 Intake Total 0 Output Total 750 Balance -750 0 Intake: Oral 0 Output: Urine 750 Other: Voiding Method Indwelling Catheter Weight 70.76 kg 75 kg - Constitutional General appearance: Present: average body habitus, cooperative, no acute distress - EENT Eyes: Present: anicteric sclerae, EOMI, PERRLA, normal appearance ENT: Present: hearing grossly normal, normal oropharynx Ears: bilateral: normal - Neck Neck: Present: normal ROM. Absent: lymphadenopathy, rigidity, thyromegaly Carotids: negative: bruit present Thyroid: bilateral: normal size, negative: enlarged, nodule - Respiratory Respiratory: bilateral: CTA, negative: rales, rhonchi, wheezing - Cardiovascular Rhythm: regular Heart sounds: normal: S1, S2 Abnormal Heart Sounds: Absent: systolic murmur, diastolic murmur - Gastrointestinal General gastrointestinal: Present: normal bowel sounds, soft. Absent: distended, organomegaly, tenderness - Genitourinary Genitourinary Comment(s): deferred - Integumentary Integumentary: Present: normal turgor. Absent: jaundiced, rash, ulcer - Neurologic Neurologic: Present: CNII-XII intact. Absent: focal deficits - Musculoskeletal Musculoskeletal: Present: gait normal, strength equal bilaterally - Psychiatric Psychiatric: Present: A&O x's 3, appropriate affect, intact judgment & insight Results CBC & Chem 7: 07/02/21 20:03 07/02/21 20:03 Labs: Abnormal Lab Results - Last 24 Hours (Table) 07/02/21 07/02/21 07/02/21 Range/Units 20:03 20:03 20:03 WBC 12.1 H (3.8-10.6) k/uL Hgb 12.7 L (13.0-17.5) gm/dL RDW 15.7 H (11.5-15.5) % Neutrophils # 9.4 H (1.3-7.7) k/uL D-Dimer 1.04 H (<0.60) mg/L FEU Sodium 135 L (137-145) mmol/L Creatinine 0.54 L (0.66-1.25) mg/dL Creatine Kinase 49 L (55-170) U/L Troponin I (0.000-0.034) ng/mL 07/02/21 07/02/21 07/03/21 Range/Units 20:03 22:50 02:04 WBC (3.8-10.6) k/uL Hgb (13.0-17.5) gm/dL RDW (11.5-15.5) % Neutrophils # (1.3-7.7) k/uL D-Dimer (<0.60) mg/L FEU Sodium (137-145) mmol/L Creatinine (0.66-1.25) mg/dL Creatine Kinase (55-170) U/L Troponin I 0.035 H* 0.048 H* 0.049 H* (0.000-0.034) ng/mL Assessment and Plan Assessment: 1. Healthcare associated pneumonia; failed treatment - Patient has been placed on IV Zosyn and vancomycin; we will consult ID for further recommendations; monitor CRP pro-calcitonin and CBC - Continue with DuoNeb nebulizer treatments 4 times a day 2. Elevated troponin; possibly demand ischemia; we will monitor troponin and trend acute 43; plan to consult cardiology if fine continues to trend up 3. Elevated d-dimer; patient is currently on O2 per HFNC; CTA chest was done and was negative for PE 4. Hypertension; metoprolol 50 mg every 12 hours 5. Seizure disorder; carbamazepine 200 mg twice a day 6. MS/neurogenic bladder; Ditropan 5 mg 3 times a day; baclofen 10 mg 3 times a day DVT prophylaxis; SCDs/subcu Lovenox CODE STATUS; full code
[2021-07-03 19:54] LABS: Appearance,Urine Cloudy (Clear); Bacteria,Urine Rare /hpf; Bilirubin,Urine Negative (Negative); Blood,Urine Moderate (Negative); Color,Urine Yellow; Glucose,Urine (UA) Negative (Negative); Hyaline Casts,Urine 1 /lpf (0-2); Ketones,Urine Negative (Negative); Leukocyte Esterase,Urine Large (Negative); Mucus,Urine Few /hpf; Nitrite,Urine Negative (Negative); PH, Urine 6.5 (5.0-8.0); Protein,Urine 1+ (Negative); RBC,Urine 159 /hpf (0-5); Specific Gravity,Urine 1.027 (1.001-1.035); Squamous Epithelial Cell,Urine <1 /hpf (0-4); Urobilinogen,Urine <2.0 mg/dL (<2.0); WBC,Urine 48 /hpf (0-5)
[2021-07-03] MEDS ORDERED: AZITHROMYCIN 500 MG TAB PO SCH (21:00)
[2021-07-03] MEDS: CEFEPIME 2 GM in SODIUM CHLORIDE 0.9% 100 ML IVPB SCH (22:48)
--- NOTE | 2021-07-03 22:49 | P.CONS ---
History of Present Illness - Reason for Consult Consult date: 07/03/21 [facility] Requesting physician: Rekha Schmidt - Chief Complaint not looking well x 1 day - History of Present Illness History of present illness : Patient is 61-year-old male with a past medical history significant for MS in this patient who is a bedbound detention resident did have multiple episodes of aspiration pneumonia and catheter associated tract infection, this patient was brought to [facility] last night for the patient apparently not doing well and was demonstrating increasing shortness of breath cough no clear history of any nausea or vomiting or fever has been reported patient on presentation to the hospital was afebrile and no fever has been recorded subsequently patient did have a urine of 12.1 with a left shift D-dimer was mildly elevated kidney function was normal patient did have elevated troponin UA has been positive patient did have a CT angiogram of the chest bilateral lower lobe patchy infiltrate atelectasis which is similar to old exam no evidence of pulmonary embolism patient has been admitted to hospital patient was started on Rocephin and Zithromax infectious disease was consulted for further management of antibiotic therapy all information has been obtained from review the chart as the patient himself cannot provide any history last urine culture positive for Pseudomonas Review of system: Positive point has been mentioned in HPI complete review could not be obtained because of underlying mental status Past medical history : Reviewed, documented below Past surgical history : Reviewed, documented below Social history: Reviewed, documented below Medications: Reviewed, as documented below EXAMINATION: Vital sigans= Reviewed and documented below GENERAL DESCRIPTION: Middle-aged male lying in bed, no distress. No tachypnea or accessory muscle of respiration use. HEENT: Shows Pallor , no scleral icterus. Oral mucous membrane is dry. NECK: Trachea central, no thyromegaly. LUNGS: Unlabored breathing. Coarse breath sounds bilaterally. No wheeze or crackle. HEART: S1, S2, regular rate and rhythm. ABDOMEN: Soft, no tenderness , guarding or rigidity EXTREMITIES: No edema of feet. SKIN: No rash, no masses palpable. NEUROLOGICAL: The patient is awake, but nonverbal orientation could not det ermine LABS AND RADIOLOGY: Reviewed results see below Assessment : Patient is a 61-year-old male with a past medical history significant for MS in this patient who did have a multiple admission to the hospital predominantly with the catheter associated infection now has been brought to the hospital for the patient not looking well however no fever has been recorded white count is mildly elevated cysts x-ray and CT did show some bibasilar infiltrate which are not new concern is for possible catheter associated infection with recent urine culture positive for Pseudomonas Plan: 1-change Stein catheter and obtain UA and urine culture from the new Stein 2-discontinue Rocephin and Zithromax 3-start the patient cefepime 2 g every 8hr We will follow on clinical condition and cultures to further adjust medication if needed Thank you for this consultation we will follow the patient along with you Past Medical History Past Medical History: Deep Vein Thrombosis (DVT), GERD/Reflux, Hypertension, Musculoskeletal Disorder, Neurologic Disorder, Pneumonia, Seizure Disorder, Skin Disorder Additional Past Medical History / Comment(s): Pt diagnosed with MS at the age of 39 yrs, eizure/pneumonia/UTI with sepsis/respirtory failure/vented, cognitive impairment, sister states when he is feeling well he could speak a few words/nod head appropriately/give thumbs up/roll eyes but when ill is nonverbal, pt has dysphagia/NPO with peg tube, contractures, last seizure 07/2020, trigeminal neuralgia, dysarthria/anarthria/neurogenic bladder with IDC-UTIs/sepsis, multiple pneumonias, recent seizure-last one 07/03/20, incontinent of stool, pt has had decubitus ulcer coccyx-sister unsure of skin condition at this time, past anemia r/t heparin/epistaxiis which involved nasal packing/transfusions, DVT bilateral arms, hypoxia, oxygen at 2L/NC, L femoral head fracture History of Any Multi-Drug Resistant Organisms: ESBL, MRSA Year Discovered:: 03/09/21-MRSA; 11/23/19 ESBL-E.coli MDRO Source:: Abdomen-Peg site MRSA; Urine -ESBL Past Surgical History: Tonsillectomy Additional Past Surgical History / Comment(s): Gastrostomy, peg tube, I&D coccyx decubitius, bronchoscopy, bilateral lasik eye surgery. Past Anesthesia/Blood Transfusion Reactions: No Reported Reaction Additional Past Anesthesia/Blood Transfusion Reaction / Comm: Pt has received blood in past without reaction. Past Psychological History: Depression Additional Psychological History / Comment(s): Pt resides at [facility]. He normally is in bed/amita lift to wheelchair. Has peg/IDC Smoking Status: Never smoker Past Alcohol Use History: None Reported Past Drug Use History: None Reported - Past Family History Father Family Medical History: Myocardial Infarction ([place]) Mother Family Medical History: Hypertension, Myocardial Infarction ([place]) Additional Family Medical History / Comment(s): Mother of a [place] at the age of 73 yrs. Medications and Allergies Home Medications Medication Instructions Recorded Confirmed Type Oxybutynin Chloride [Ditropan Oral 5 mg PEG/G-TUBE TID@0600,1400,2200 09/08/19 07/02/21 History Soln] Ipratropium-Albuterol Nebulize 3 ml INHALATION RT-Q6H PRN 12/16/19 07/02/21 History [Duoneb 0.5 mg-3 mg/3 ml Soln] Baclofen [Lioresal] 10 mg PEG/G-TUBE TID@0600,1400,2200 07/16/20 07/02/21 History Scopolamine [Scopolamine 1 MG/72 1 patch TRANSDERM Q72H 09/07/20 07/02/21 History HR patch] Aspirin 81 mg PEG/G-TUBE DAILY@0900 11/27/20 07/02/21 History Cranberry Fruit Extract [Cranberry] 500 mg PEG/G-TUBE DAILY@0900 11/27/20 07/02/21 History amantadine HCL [Amantadine] 100 mg PEG/G-TUBE DAILY@0900 11/27/20 07/02/21 History Famotidine [Pepcid] 20 mg PEG/G-TUBE HS 03/07/21 07/02/21 History Lactulose 20 gm PEG/G-TUBE BID@0900,2100 03/07/21 07/02/21 History Magnesium Hydroxide [Milk of 7,200 mg PEG/G-TUBE Q72H PRN 03/07/21 07/02/21 History Magnesia Concentrate] Acetaminophen Tab [Tylenol] 650 mg PEG/G-TUBE Q6H PRN MDD 06/13/21 07/02/21 History 3GM/24HR Metoprolol Tartrate [Lopressor] 25 mg PEG/G-TUBE Q12HR 06/13/21 07/02/21 History Metoprolol Tartrate [Lopressor] 50 mg PEG/G-TUBE Q12HR 06/13/21 07/02/21 History Lacosamide [Vimpat] 150 mg PEG/G-TUBE BID@0900,2100 #6 06/17/21 07/02/21 Rx tab Cholecalciferol [Vitamin D3 (25 25 mcg PEG/G-TUBE DAILY 07/02/21 07/02/21 History Mcg = 1000 Iu)] carBAMazepine [carBAMazepine Oral 200 mg PEG/G-TUBE BID@0900,2100 07/02/21 07/02/21 History Susp] guaiFENesin [guaiFENesin Oral 200 mg PEG/G-TUBE Q6H 07/02/21 07/02/21 History Solution] Allergies Allergy/AdvReac Type Severity Reaction Status Date / Time meropenem [From Merrem] Allergy Rash/Hives Verified 07/02/21 20:51 Physical Exam Vitals: Vital Signs Temp Pulse Pulse Resp BP BP Pulse Ox 07/03/21 08:43 96 07/03/21 08:00 72 116/74 07/03/21 04:00 98.4 F 59 L 16 134/80 98 07/03/21 02:34 97 07/03/21 02:00 59 L 25 H 07/02/21 22:37 72 19 141/87 99 07/02/21 19:50 98.7 F 86 17 136/101 96 Intake and Output 07/03/21 07/03/21 07/03/21 06:59 14:59 22:59 Intake Total 0 Output Total 750 Balance -750 0 Intake: Oral 0 Output: Urine 750 Other: Voiding Method Indwelling Catheter # Bowel Movements 1 Weight 75 kg Results CBC & Chem 7: 07/02/21 20:03 07/02/21 20:03 Labs: Abnormal Lab Results - Last 24 Hours (Table) 07/02/21 07/02/21 07/02/21 Range/Units 20:03 20:03 20:03 WBC 12.1 H (3.8-10.6) k/uL Hgb 12.7 L (13.0-17.5) gm/dL RDW 15.7 H (11.5-15.5) % Neutrophils # 9.4 H (1.3-7.7) k/uL D-Dimer 1.04 H (<0.60) mg/L FEU Sodium 135 L (137-145) mmol/L Creatinine 0.54 L (0.66-1.25) mg/dL Creatine Kinase 49 L (55-170) U/L Troponin I (0.000-0.034) ng/mL 07/02/21 07/02/21 07/03/21 Range/Units 20:03 22:50 02:04 WBC (3.8-10.6) k/uL Hgb (13.0-17.5) gm/dL RDW (11.5-15.5) % Neutrophils # (1.3-7.7) k/uL D-Dimer (<0.60) mg/L FEU Sodium (137-145) mmol/L Creatinine (0.66-1.25) mg/dL Creatine Kinase (55-170) U/L Troponin I 0.035 H* 0.048 H* 0.049 H* (0.000-0.034) ng/mL
[2021-07-03] MEDS: FAMOTIDINE 8 MG/ML ORAL.SUSP PEG/G-TUBE SCH (22:51)
[2021-07-04] MEDS: guaiFENesin SYRUP 100MG/5ML 200 MG/10 ML CUP PEG/G-TUBE SCH ×5 (04:25→23:32)
[2021-07-04] MEDS: OXYBUTYNIN CHLORIDE 5 MG TAB PEG/G-TUBE SCH ×3 (06:10→21:14)
[2021-07-04] MEDS: BACLOFEN 10 MG TAB PEG/G-TUBE SCH ×3 (06:11→21:14)
[2021-07-04 06:29] LABS: Glucose,Whole Blood 86 mg/dL (75-99)
[2021-07-04 08:03] LABS: Basophils # (A) 0.1 k/uL (0-0.2); Basophils % (A) 0 %; Eosinophils # (A) 0.1 k/uL (0-0.7); Eosinophils % (A) 1 %; HCT 41.1 % (39.0-53.0); HGB 12.3 gm/dL (13.0-17.5); Hypochromasia Moderate; Lymphocytes % (A) 6 %; MCH 25.1 pg (25.0-35.0); MCHC 29.8 g/dL (31.0-37.0); MCV 84.2 fL (80.0-100.0); Mean Platelet Volume 8.5; Monocytes # (A) 0.9 k/uL (0-1.0); Monocytes % (A) 6 %; Neutrophils # (A) 14.2 k/uL (1.3-7.7); Neutrophils % (A) 86 %; Platelet Count 325 k/uL (150-450); RBC 4.88 m/uL (4.30-5.90); RDW 15.6 % (11.5-15.5); WBC 16.5 k/uL (3.8-10.6)
[2021-07-04 08:14] LABS: African American GFR (CKD) >90 (>60 ml/min/1.73 sqM); Anion Gap 13 mmol/L; Blood Urea Nitrogen 15 mg/dL (9-20); Carbon Dioxide 19 mmol/L (22-30); Chloride 104 mmol/L (98-107); Glucose 89 mg/dL (74-99); Non-African American GFR(CKD) >90 (>60 ml/min/1.73 sqM); Potassium 4.2 mmol/L (3.5-5.1); Sodium 136 mmol/L (137-145)
[2021-07-04 08:58] LABS: C Reactive Protein 16.5 mg/dL (<1.0)
[2021-07-04] MEDS ORDERED: ENOXAPARIN 30 MG/0.3 ML SYRINGE SQ SCH (09:00)
[2021-07-04] MEDS: CEFEPIME 2 GM in SODIUM CHLORIDE 0.9% 100 ML IVPB SCH ×3 (10:05→23:32)
[2021-07-04] MEDS: LACTULOSE 20 GM/30 ML CUP PEG/G-TUBE SCH ×2 (10:05→21:14)
[2021-07-04] MEDS: METOPROLOL TARTRATE 25 MG TAB PEG/G-TUBE SCH ×2 (10:06→21:14)
[2021-07-04] MEDS: carBAMazepine 200 MG TAB PEG/G-TUBE SCH ×2 (10:06→21:14)
[2021-07-04] MEDS: CHOLECALCIFEROL 25 MCG (1000 IU) TABLET PEG/G-TUBE SCH (10:07)
[2021-07-04] MEDS: LACOSAMIDE 150 MG TABLET PEG/G-TUBE SCH ×2 (10:07→21:14)
[2021-07-04] MEDS: ASPIRIN 81 MG PEG/G-TUBE SCH (10:07)
--- NOTE | 2021-07-04 12:24 | P.PN ---
Subjective 61-year-old male history of advanced MS , multiple hospitalization with multiple infections and multiple medical problems who was just discharged earlier this week after being treated for a UTI and pneumonia inpatient. He apparently is not doing well and demonstrating increased shortness of breath cough and evidence of failure of outpatient treatment. Is brought in by EMS for evaluation. No nausea no vomiting no reports of fevers chills or sweats patient himself is a poor historian and unable to render any information. Patient is unable to provide any history so all information is obtained from patient's chart Workup in ED revealed elevated troponin and d-dimer; patient is admitted for failed outpatient treatment for pneumonia D-dimer is 1.04. ProBNP is not significantly elevated at 587. Virus profile were negative including influenza, RSV and Covid. Chest x-ray and CTA showed bilateral lower lobe patchy infiltrate. No PE. Patient has been evaluated by ID team and currently he is on cefepime Objective - Vital Signs Vital signs: Vital Signs Temp 99 F 07/04/21 10:00 Pulse 119 H 07/04/21 10:00 Resp 18 07/04/21 10:00 BP 121/69 07/04/21 10:00 Pulse Ox 100 07/04/21 10:00 Intake & Output 07/03/21 07/04/21 07/04/21 18:59 06:59 18:59 Intake Total 0 Output Total 475 400 Balance -475 -400 Weight 69.5 kg Intake: Oral 0 Output: Urine 475 400 Other: Voiding Method Indwelling Catheter Indwelling Catheter Indwelling Catheter # Bowel Movements 1 2 - Exam -GENERAL: The patient is awake, does not follow commands, not in any acute distress. Well developed, well nourished. HEENT: Pupils are round and equally reacting to light. EOMI. No scleral icterus. No conjunctival pallor. Normocephalic, atraumatic. No pharyngeal erythema. No thyromegaly. CARDIOVASCULAR: S1 and S2 present. No murmurs, rubs, or gallops. PULMONARY: Chest is clear to auscultation, no wheezing or crackles. -ABDOMEN: Soft, nontender, nondistended, normoactive bowel sounds. No palpable organomegaly. PEG tube is in place MUSCULOSKELETAL: No joint swelling or deformity. EXTREMITIES: No cyanosis, clubbing, or pedal edema. NEUROLOGICAL: Gross neurological examination did not reveal any focal deficits. SKIN: No rashes. no petechiae. - Labs CBC & Chem 7: 07/04/21 07:17 07/04/21 07:17 Labs: Abnormal Lab Results - Last 24 Hours (Table) 07/03/21 07/04/21 07/04/21 Range/Units 19:30 07:17 07:17 WBC 16.5 H (3.8-10.6) k/uL Hgb 12.3 L (13.0-17.5) gm/dL MCHC 29.8 L (31.0-37.0) g/dL RDW 15.6 H (11.5-15.5) % Neutrophils # 14.2 H (1.3-7.7) k/uL Sodium 136 L (137-145) mmol/L Carbon Dioxide 19 L (22-30) mmol/L Creatinine 0.65 L (0.66-1.25) mg/dL C-Reactive Protein 16.5 H (<1.0) mg/dL Urine Protein 1+ H (Negative) Urine Blood Moderate H (Negative) Ur Leukocyte Esterase Large H (Negative) Urine RBC 159 H (0-5) /hpf Urine WBC 48 H (0-5) /hpf Urine Bacteria Rare H (None) /hpf Urine Mucus Few H (None) /hpf Microbiology - Last 24 Hours (Table) 07/03/21 19:30 Urine Culture - Preliminary Urine,Voided 07/02/21 20:40 Blood Culture - Preliminary Blood No Growth after 24 hours 07/02/21 20:03 Blood Culture - Preliminary Blood No Growth after 24 hours Assessment and Plan Assessment: Sepsis with leukocytosis and fever UTI versus bilateral lower lobe pneumonia Severe multiple sclerosis, bedridden Metabolic encephalopathy secondary to above multiple sclerosis Moderate to severe coronary protein malnutrition History of DVT History of GERD Hypertension Gait dysfunction secondary to multiple sclerosis Osteoarthritis Plan: This is a pleasant 61 years old male who presents with sepsis, UTI versus pneumonia Continue with cefepime Infectious disease team on the case Urine culture and blood culture Labs and medication were reviewed.. Continue same treatment. Continue with symptomatic treatment. Resume home medication. Monitor lytes and vitals. DVT and GI prophylaxis. Further recommendationsas per clinical course of the patient DVT prophylaxis: Subcutaneous Lovenox GI Prophylaxis: Pepcid Prognosis is guarded
--- NOTE | 2021-07-04 13:07 | CDI ---
Documentation Clarification Form Date: 07/04/2021 01:03:01 PM From: Martha Liu RN, CCDS Admit Date: 07/02/2021 10:11:00 PM Patient Name: Chris Marvin Visit Number: [id number] ATTENTION: The Clinical Documentation Specialists (CDI) and [facility] Coding Staff appreciate your assistance in clarifying documentation. Please respond to the clarification below the line at the bottom and electronically sign. The CDI & [facility] Coding staff will review the response and follow-up if needed. Please note: Queries are made part of the Legal Health Record. If you have any questions, please contact the author of this message via ITS. Dr. Shu Devlin pressure ulcer is documented by Nursing beginning 07/03 and requires MD documentation and confirmation]. Based on this information and the findings below, is there an additional diagnosis that is clinically appropriate for this patient? History/Risk Factors: MS, UTI, Trach, Dysphagia with Peg, trigeminal neuralgia, neurogenic bladder with IDC, Hx of pressure ulcer to coccyx, contractures, seizures Clinical Indicators: Location: Left Heel Wound description: Stage 2 POA w/o drainage Treatment: Gauze Low air loss mattress, Elevation of heels Is there an additional diagnosis that is clinically appropriate for this patient? [ ] Left Heel Pressure Ulcer Stage 1 POA [ ] Left Heel Pressure Ulcer Stage 2 POA [ ] Left Heel Pressure Ulcer Stage 3 POA [ ] Other condition, please specify [ ] Unable to determine Clinical Definitions: Stage 1 Pressure Ulcer: intact skin, non-blanching redness of local area Stage 2 Pressure Ulcer: Partial thickness, loss of dermis, pink wound bed Stage 3 Pressure Ulcer: Full thickness tissue loss Stage 4 Pressure Ulcer: Full thickness tissue loss with exposed bone, tendon, or muscle. Unstageable pressure ulcer: Full thickness tissue loss in which the base of the ulcer is covered by slough (yellow, vaz, suarez, green or brown) and/or eschar (vaz, brown or black) in the wound bed. (Template Last Revised: November 2020) Left Heel Pressure Ulcer Stage 2 POA MTDD
--- NOTE | 2021-07-04 13:10 | CDI ---
Documentation Clarification Form Date: 07/04/2021 01:03:01 PM From: Martha Liu RN, CCDS Admit Date: 07/02/2021 10:11:00 PM Patient Name: Chris Marvin Visit Number: [id number] ATTENTION: The Clinical Documentation Specialists (CDI) and [facility] Coding Staff appreciate your assistance in clarifying documentation. Please respond to the clarification below the line at the bottom and electronically sign. The CDI & [facility] Coding staff will review the response and follow-up if needed. Please note: Queries are made part of the Legal Health Record. If you have any questions, please contact the author of this message via ITS. Dr. Dara Crowe A pressure ulcer is documented by Nursing beginning 07/03 and requires MD documentation and confirmation]. Based on this information and the findings below, is there an additional diagnosis that is clinically appropriate for this patient? History/Risk Factors: MS, UTI, Trach, Dysphagia with Peg, trigeminal neuralgia, neurogenic bladder with IDC, Hx of pressure ulcer to coccyx, contractures, seizures Clinical Indicators: Location: Right Heel Wound description: Stage 1 POA w/o drainage Treatment: Gauze Low air loss mattress, Elevation of heels Is there an additional diagnosis that is clinically appropriate for this patient? [ ] Right Heel Pressure Ulcer Stage 1 POA [ ] Right Heel Pressure Ulcer Stage 2 POA [ ] Right Heel Pressure Ulcer Stage 3 POA [ ] Other condition, please specify [ ] Unable to determine Clinical Definitions: Stage 1 Pressure Ulcer: intact skin, non-blanching redness of local area Stage 2 Pressure Ulcer: Partial thickness, loss of dermis, pink wound bed Stage 3 Pressure Ulcer: Full thickness tissue loss Stage 4 Pressure Ulcer: Full thickness tissue loss with exposed bone, tendon, or muscle. Unstageable pressure ulcer: Full thickness tissue loss in which the base of the ulcer is covered by slough (yellow, vaz, suarez, green or brown) and/or eschar (vaz, brown or black) in the wound bed. (Template Last Revised: November 2020) Right Heel Pressure Ulcer Stage 1 RASA ELIFD
[2021-07-04] MEDS: SODIUM CHLORIDE 0.9% 1,000 ML IV SCH ×2 (13:20→23:31)
--- NOTE | 2021-07-04 13:20 | CDI ---
Documentation Clarification Form Date: 07/04/2021 01:12:16 PM From: Martha Liu RN, CCDS Admit Date: 07/02/2021 10:11:00 PM Patient Name: Chris Marvin Visit Number: [id number] ATTENTION: The Clinical Documentation Specialists (CDI) and [facility] Coding Staff appreciate your assistance in clarifying documentation. Please respond to the clarification below the line at the bottom and electronically sign. The CDI & [facility] Coding staff will review the response and follow-up if needed. Please note: Queries are made part of the Legal Health Record. If you have any questions, please contact the author of this message via ITS. Dr. Gramajo E Sheet Moderate to Severe Malnutrition is documented in the 07/04 Attending Progress Note. Additional clarification regarding the severity of malnutrition is requested as range diagnosis cannot be accepted. History/Risk Factors: Sepsis, Cath Related UTIM, Metabolic encephalopathy, MS with contracture an neurogenic bladder, Hx of DVT, GERD, OA, Depression, Pneumonia, Chronic Peg tube, Seizure disorder, Home O2 at 2L NC Clinical Indicators: Current BMI: 23.3 Insufficient energy intake: NPO status 2nd to chronic dysphagia with Peg tube- No feeding ordered. Weight Loss: none documented Loss of subcutaneous fat: & Loss of muscle mass: Stage 2 pressure Ulcer to Left heel, Stage 1 pressure Ulcer to Left Heel, Hx of pressure Ulcer to coccyx Fluid accumulation: No edema Decreased hand inspecting and testing lead hand strength: contractures in extremities RD Consult Assessment: No dietary consult ordered Treatment: Dietary Consult: no ordered Supplements: Not ordered- PEG in Place Lab monitoring: AM Daily Please clarify the type of malnutrition, if known: [ ] Moderate Protein-Calorie Malnutrition [ ] Severe Protein-Calorie Malnutrition [ ] Other condition, please specify [ ] Unable to Determine (Template Last Revised: November 2020) Unable to Determine MTDD
--- NOTE | 2021-07-04 13:29 | CDI ---
Documentation Clarification Form Date: 07/04/2021 01:27:12 PM From: Martha Liu RN, CCDS Admit Date: 07/02/2021 10:11:00 PM Patient Name: Chris Marvin Visit Number: [id number] ATTENTION: The Clinical Documentation Specialists (CDI) and [facility] Coding Staff appreciate your assistance in clarifying documentation. Please respond to the clarification below the line at the bottom and electronically sign. The CDI & [facility] Coding staff will review the response and follow-up if needed. Please note: Queries are made part of the Legal Health Record. If you have any questions, please contact the author of this message via ITS. Dr. Ireland Your patient has [insert documentation of symptoms or findings, with date, location]. Based on this information and the findings below, is there an additional diagnosis that is clinically appropriate for this patient? History/Risk Factors: MS, UTI w sepsis and respiratory failure with mechanical vent, Dysphagia w NPO status and Peg tube contractures, Seizure, Decubs, DVT's, Hypoxia, Chronic IDC Tobacco use: NONE Home oxygen: 2l NC, Hx of tracheostomy Clinical Indicators: 07/02 1950 Admission Vital signs: Temp 98.7, HR 86, RR 17, B/P 136/101, Spo2 96% 3L NC Pulse oximetry: 07/04 Attending Lung/Breathing assessment: PULMONARY: Chest is clear to auscultation, no wheezing or crackles." Treatment: Breathing TX: Duoneb INH Q 6 hrs. PRN Continuous Pulse ox O2: 3L NS to 6L High Flow NC Is there an additional diagnosis that is clinically appropriate for this patient? [ ] Acute on Chronic Hypoxic Respiratory Failure (pO2 <60 mm Hg or SpO2 <91% on room air) [ ] Acute on Chronic Hypercapnic Respiratory Failure (pCO2 >50 and pH <7.35) [ ] Other Diagnosis, please specify [ ] Unable to determine (Template Last Revised: November 2020) chronic hypoxia MTDD
[2021-07-04 20:13] LABS: Glucose,Whole Blood 92 mg/dL (75-99)
[2021-07-04] MEDS: FAMOTIDINE 8 MG/ML ORAL.SUSP PEG/G-TUBE SCH (21:45)
[2021-07-05 05:53] LABS: Glucose,Whole Blood 134 mg/dL (75-99)
[2021-07-05] MEDS: OXYBUTYNIN CHLORIDE 5 MG TAB PEG/G-TUBE SCH ×3 (06:30→22:00)
[2021-07-05] MEDS: BACLOFEN 10 MG TAB PEG/G-TUBE SCH ×3 (06:30→22:00)
[2021-07-05] MEDS: guaiFENesin SYRUP 100MG/5ML 200 MG/10 ML CUP PEG/G-TUBE SCH ×3 (06:30→16:29)
[2021-07-05] MEDS: CEFEPIME 2 GM in SODIUM CHLORIDE 0.9% 100 ML IVPB SCH ×2 (09:30→16:28)
[2021-07-05] MEDS: CHOLECALCIFEROL 25 MCG (1000 IU) TABLET PEG/G-TUBE SCH (09:31)
[2021-07-05] MEDS: ENOXAPARIN 40 MG/0.4 ML SYRINGE SQ SCH (09:31)
[2021-07-05] MEDS: METOPROLOL TARTRATE 25 MG TAB PEG/G-TUBE SCH ×2 (09:31→22:00)
[2021-07-05] MEDS: carBAMazepine 200 MG TAB PEG/G-TUBE SCH ×2 (09:31→22:00)
[2021-07-05] MEDS: LACOSAMIDE 150 MG TABLET PEG/G-TUBE SCH ×2 (09:32→22:00)
[2021-07-05] MEDS: LACTULOSE 20 GM/30 ML CUP PEG/G-TUBE SCH ×2 (09:32→22:00)
[2021-07-05] MEDS: ASPIRIN 81 MG PEG/G-TUBE SCH (09:32)
--- NOTE | 2021-07-05 11:35 | PN ---
PROGRESS NOTE DATE OF SERVICE: 07/04/2021 REASON FOR FOLLOWUP: 1. Urinary tract infection. 2. Pneumonia. INTERVAL HISTORY: The patient is afebrile. The patient is currently breathing comfortably. The patient is hemodynamically stable. The patient remains nonverbal, unable to provide any history. No vomiting or diarrhea reported by the nursing staff. PHYSICAL EXAMINATION: Blood pressure 124/72 with a pulse of 83, temperature 98.8. He is 97% on 4 L nasal cannula. General description is a middle-aged male lying in bed in no distress. RESPIRATORY SYSTEM: Unlabored breathing. Coarse breath sounds at the bases bilaterally. No wheeze. HEART: S1, S2. Regular rate and rhythm. ABDOMEN: Soft. No tenderness. LABS: Hemoglobin is 12.1, white count 16.5, creatinine 0.65. Cultures currently pending. DIAGNOSTIC IMPRESSION AND PLAN: Patient admitted to hospital with congestion concerning for pneumonia and catheter- associated urinary tract infection. Patient is currently covered with cefepime while waiting for the culture to finalize and monitor clinical course closely. MMODL / IJN: [id number] /
--- NOTE | 2021-07-05 12:09 | P.PN ---
Subjective 61-year-old male history of advanced MS , multiple hospitalization with multiple infections and multiple medical problems who was just discharged earlier this week after being treated for a UTI and pneumonia inpatient. He apparently is not doing well and demonstrating increased shortness of breath cough and evidence of failure of outpatient treatment. Is brought in by EMS for evaluation. No nausea no vomiting no reports of fevers chills or sweats patient himself is a poor historian and unable to render any information. Patient is unable to provide any history so all information is obtained from patient's chart Workup in ED revealed elevated troponin and d-dimer; patient is admitted for failed outpatient treatment for pneumonia D-dimer is 1.04. ProBNP is not significantly elevated at 587. Virus profile were negative including influenza, RSV and Covid. Chest x-ray and CTA showed bilateral lower lobe patchy infiltrate. No PE. Patient has been evaluated by ID team and currently he is on cefepime 07/05/2021 Patient is more awake and alert today however he is not interactive and he does not follow commands. no fever. Hemodynamically stable. Urine culture and blood culture are still pending Procalcitonin elevated 0.17 and C-reactive protein 16.5 Remains on normal saline at 40 mL per hour, tube feeding at 60 mL per hour and cefepime 2 g. Objective - Vital Signs Vital signs: Vital Signs Temp 98.8 F 07/05/21 09:30 Pulse 79 07/05/21 09:30 Resp 18 07/05/21 09:30 BP 132/93 07/05/21 09:30 Pulse Ox 97 07/05/21 09:30 Intake & Output 07/04/21 07/05/21 07/05/21 18:59 06:59 18:59 Intake Total 180 60 Output Total 250 500 150 Balance -250 -320 -90 Weight 69.5 kg Intake: Tube Feeding 180 60 Output: Urine 250 500 150 Other: Voiding Method Indwelling Catheter Indwelling Catheter Indwelling Catheter # Bowel Movements 2 - Exam -GENERAL: The patient is awake, does not follow commands, not in any acute distress. Well developed, well nourished. HEENT: Pupils are round and equally reacting to light. EOMI. No scleral icterus. No conjunctival pallor. Normocephalic, atraumatic. No pharyngeal erythema. No thyromegaly. CARDIOVASCULAR: S1 and S2 present. No murmurs, rubs, or gallops. PULMONARY: Chest is clear to auscultation, no wheezing or crackles. -ABDOMEN: Soft, nontender, nondistended, normoactive bowel sounds. No palpable organomegaly. PEG tube is in place MUSCULOSKELETAL: No joint swelling or deformity. EXTREMITIES: No cyanosis, clubbing, or pedal edema. NEUROLOGICAL: Gross neurological examination did not reveal any focal deficits. SKIN: No rashes. no petechiae. - Labs CBC & Chem 7: 07/04/21 07:17 07/04/21 07:17 Labs: Abnormal Lab Results - Last 24 Hours (Table) 07/04/21 07/05/21 Range/Units 07:17 05:52 POC Glucose (mg/dL) 134 H (75-99) mg/dL Procalcitonin 0.17 H (0.02-0.09) ng/mL Microbiology - Last 24 Hours (Table) 07/02/21 20:03 Blood Culture - Preliminary Blood No Growth after 48 hours 07/02/21 20:40 Blood Culture - Preliminary Blood No Growth after 48 hours 07/03/21 19:30 Urine Culture - Preliminary Urine,Voided Assessment and Plan Assessment: Sepsis with leukocytosis and fever UTI, associated with urine catheter versus bilateral lower lobe pneumonia Severe multiple sclerosis, bedridden Metabolic encephalopathy secondary to above multiple sclerosis Moderate to severe coronary protein malnutrition History of DVT History of GERD Hypertension Gait dysfunction secondary to multiple sclerosis Osteoarthritis Plan: This is a pleasant 61 years old male who presents with sepsis, UTI versus pneumonia Continue with cefepime Infectious disease team on the case Urine culture and blood culture Labs and medication were reviewed.. Continue same treatment. Continue with symptomatic treatment. Resume home medication. Monitor lytes and vitals. DVT and GI prophylaxis. Further recommendationsas per clinical course of the patient DVT prophylaxis: Subcutaneous Lovenox GI Prophylaxis: Pepcid Prognosis is guarded
[2021-07-05 12:25] LABS: Glucose,Whole Blood 121 mg/dL (75-99)
[2021-07-05] MEDS: SODIUM CHLORIDE 0.9% 1,000 ML IV SCH (12:57)
[2021-07-05 16:46] LABS: Glucose,Whole Blood 104 mg/dL (75-99)
[2021-07-05] MEDS: FAMOTIDINE 8 MG/ML ORAL.SUSP PEG/G-TUBE SCH (22:00)
[2021-07-06] MEDS: CEFEPIME 2 GM in SODIUM CHLORIDE 0.9% 100 ML IVPB SCH ×3 (00:02→15:06)
[2021-07-06] MEDS: SODIUM CHLORIDE 0.9% 1,000 ML IV SCH ×2 (00:03→07:14)
[2021-07-06] MEDS: SCOPOLAMINE 1.5MG/72HR PATCH TRANSDERM SCH (00:03)
[2021-07-06] MEDS: guaiFENesin SYRUP 100MG/5ML 200 MG/10 ML CUP PEG/G-TUBE SCH ×4 (00:03→17:16)
--- NOTE | 2021-07-06 05:45 | PN ---
PROGRESS NOTE DATE OF SERVICE: 07/05/2021. REASON FOR FOLLOWUP: Catheter associated urinary tract infection and possible pneumonia. INTERVAL HISTORY: Patient is afebrile. The patient is currently breathing comfortably. The patient is hemodynamically stable. No vomiting, diarrhea, or any other changes reported by nursing staff. PHYSICAL EXAMINATION: Blood pressure 132/91 with a pulse of 74, temperature 98.8. He is 98% on 2 L nasal cannula. General description is a middle-aged male lying in bed in no distress. Respiratory system: Unlabored breathing with decreased breath sounds in the bases. No wheeze. Heart S1, S2. Regular rate and rhythm. Abdomen: Soft. No tenderness. LABS: No new labs have been obtained today. Urine showing a Gram-negative bacilli. Blood culture has been negative. DIAGNOSTIC IMPRESSION AND PLAN: Patient with admission to hospital, concern for possible aspiration pneumonia/catheter associated urinary tract infection. The patient Stein catheter has been changed. Urine showing gram-negative. Patient is covered with cefepime that will be continued, adjusting it further based on culture report. Continue supportive care. MMODL / IJN: [id number] /
[2021-07-06] MEDS: OXYBUTYNIN CHLORIDE 5 MG TAB PEG/G-TUBE SCH ×3 (05:47→21:52)
[2021-07-06] MEDS: BACLOFEN 10 MG TAB PEG/G-TUBE SCH ×3 (05:47→21:51)
[2021-07-06 06:40] LABS: Basophils % (A) 1 %; Eosinophils # (A) 0.5 k/uL (0-0.7); Eosinophils % (A) 9 %; HGB 11.2 gm/dL (13.0-17.5); Lymphocytes # (A) 1.1 k/uL (1.0-4.8); Lymphocytes % (A) 18 %; MCH 25.7 pg (25.0-35.0); MCHC 31.9 g/dL (31.0-37.0); MCV 80.6 fL (80.0-100.0); Mean Platelet Volume 8.5; Monocytes # (A) 0.5 k/uL (0-1.0); Monocytes % (A) 9 %; Neutrophils # (A) 3.6 k/uL (1.3-7.7); Neutrophils % (A) 61 %; Platelet Count 301 k/uL (150-450); RBC 4.35 m/uL (4.30-5.90); RDW 15.8 % (11.5-15.5); WBC 5.9 k/uL (3.8-10.6)
[2021-07-06] MEDS: CHOLECALCIFEROL 25 MCG (1000 IU) TABLET PEG/G-TUBE SCH (07:13)
[2021-07-06] MEDS: ASPIRIN 81 MG PEG/G-TUBE SCH (07:13)
[2021-07-06] MEDS: LACTULOSE 20 GM/30 ML CUP PEG/G-TUBE SCH ×2 (07:13→21:51)
[2021-07-06] MEDS: ENOXAPARIN 40 MG/0.4 ML SYRINGE SQ SCH (07:13)
[2021-07-06] MEDS: METOPROLOL TARTRATE 25 MG TAB PEG/G-TUBE SCH ×2 (07:13→21:51)
[2021-07-06] MEDS: LACOSAMIDE 150 MG TABLET PEG/G-TUBE SCH ×2 (07:13→21:51)
[2021-07-06 07:34] LABS: African American GFR (CKD) >90 (>60 ml/min/1.73 sqM); Anion Gap 10 mmol/L; Blood Urea Nitrogen 19 mg/dL (9-20); Calcium 8.8 mg/dL (8.4-10.2); Carbon Dioxide 21 mmol/L (22-30); Chloride 108 mmol/L (98-107); Glucose 120 mg/dL (74-99); Non-African American GFR(CKD) >90 (>60 ml/min/1.73 sqM); Potassium 4.3 mmol/L (3.5-5.1); Sodium 139 mmol/L (137-145)
[2021-07-06] MEDS: carBAMazepine 200 MG TAB PEG/G-TUBE SCH ×2 (08:16→21:52)
--- NOTE | 2021-07-06 11:11 | P.PN ---
Subjective 61-year-old male history of advanced MS , multiple hospitalization with multiple infections and multiple medical problems who was just discharged earlier this week after being treated for a UTI and pneumonia inpatient. He apparently is not doing well and demonstrating increased shortness of breath cough and evidence of failure of outpatient treatment. Is brought in by EMS for evaluation. No nausea no vomiting no reports of fevers chills or sweats patient himself is a poor historian and unable to render any information. Patient is unable to provide any history so all information is obtained from patient's chart Workup in ED revealed elevated troponin and d-dimer; patient is admitted for failed outpatient treatment for pneumonia D-dimer is 1.04. ProBNP is not significantly elevated at 587. Virus profile were negative including influenza, RSV and Covid. Chest x-ray and CTA showed bilateral lower lobe patchy infiltrate. No PE. Patient has been evaluated by ID team and currently he is on cefepime 07/05/2021 Patient is more awake and alert today however he is not interactive and he does not follow commands. no fever. Hemodynamically stable. Urine culture and blood culture are still pending Procalcitonin elevated 0.17 and C-reactive protein 16.5 Remains on normal saline at 40 mL per hour, tube feeding at 60 mL per hour and cefepime 2 g. 02/13/2021 Patient clinically the same. His vitals are stable. No more fevers since admission. W proceed back to normal at 5.9 and electrolytes and creatinine are normal. He remains on normal saline at 40 beats per hour, tube feeding running at 60 mL/h and cefepime 2 g every 8 hours. Urine culture is growing Pseudomonas which is sensitive to cefepime. Repeat chest x-ray in the morning Objective - Vital Signs Vital signs: Vital Signs Temp 98.2 F 07/06/21 07:39 Pulse 82 07/06/21 07:39 Resp 16 07/06/21 08:00 BP 110/72 07/06/21 07:39 Pulse Ox 95 07/06/21 07:39 Intake & Output 07/05/21 07/06/21 07/06/21 18:59 06:59 18:59 Intake Total 180 120 60 Output Total 150 900 Balance 30 -780 60 Weight 71.5 kg Intake: Tube Feeding 180 120 60 Output: Urine 150 900 Other: Voiding Method Indwelling Catheter Indwelling Catheter Indwelling Catheter - Exam -GENERAL: The patient is awake, does not follow commands, not in any acute distress. Well developed, well nourished. HEENT: Pupils are round and equally reacting to light. EOMI. No scleral icterus. No conjunctival pallor. Normocephalic, atraumatic. No pharyngeal erythema. No thyromegaly. CARDIOVASCULAR: S1 and S2 present. No murmurs, rubs, or gallops. PULMONARY: Chest is clear to auscultation, no wheezing or crackles. -ABDOMEN: Soft, nontender, nondistended, normoactive bowel sounds. No palpable organomegaly. PEG tube is in place MUSCULOSKELETAL: No joint swelling or deformity. EXTREMITIES: No cyanosis, clubbing, or pedal edema. NEUROLOGICAL: Gross neurological examination did not reveal any focal deficits. SKIN: No rashes. no petechiae. - Labs CBC & Chem 7: 07/06/21 05:56 07/06/21 05:56 Labs: Abnormal Lab Results - Last 24 Hours (Table) 07/05/21 07/05/21 07/06/21 Range/Units 12:05 16:37 05:56 Hgb 11.2 L (13.0-17.5) gm/dL Hct 35.0 L (39.0-53.0) % RDW 15.8 H (11.5-15.5) % Chloride (98-107) mmol/L Carbon Dioxide (22-30) mmol/L Creatinine (0.66-1.25) mg/dL Glucose (74-99) mg/dL POC Glucose (mg/dL) 121 H 104 H (75-99) mg/dL 07/06/21 Range/Units 05:56 Hgb (13.0-17.5) gm/dL Hct (39.0-53.0) % RDW (11.5-15.5) % Chloride 108 H (98-107) mmol/L Carbon Dioxide 21 L (22-30) mmol/L Creatinine 0.54 L (0.66-1.25) mg/dL Glucose 120 H (74-99) mg/dL POC Glucose (mg/dL) (75-99) mg/dL Microbiology - Last 24 Hours (Table) 07/03/21 19:30 Urine Culture - Final Urine,Voided Pseudomonas aeruginosa 07/02/21 20:40 Blood Culture - Preliminary Blood No Growth after 72 hours 07/02/21 20:03 Blood Culture - Preliminary Blood No Growth after 72 hours Assessment and Plan Assessment: Sepsis with leukocytosis and fever UTI, associated with urine catheter secondary to Pseudomonas versus bilateral lower lobe pneumonia Severe multiple sclerosis, bedridden Metabolic encephalopathy secondary to above multiple sclerosis Moderate to severe coronary protein malnutrition History of DVT History of GERD Hypertension Gait dysfunction secondary to multiple sclerosis Osteoarthritis Plan: This is a pleasant 61 years old male who presents with sepsis, UTI versus pneumonia Continue with cefepime Infectious disease team on the case Urine culture and blood culture Labs and medication were reviewed.. Continue same treatment. Continue with symptomatic treatment. Resume home medication. Monitor lytes and vitals. DVT and GI prophylaxis. Further recommendationsas per clinical course of the patient DVT prophylaxis: Subcutaneous Lovenox GI Prophylaxis: Pepcid Prognosis is guarded
--- NOTE | 2021-07-06 15:02 | PN ---
PROGRESS NOTE DATE OF SERVICE: 07/06/2021 REASON FOR FOLLOW UP: Catheter associated urinary tract infection, possible pneumonia. INTERVAL HISTORY: The patient is afebrile. The patient is currently breathing comfortably. The patient is hemodynamically stable. No vomiting, diarrhea. No change reported by nursing staff. PHYSICAL EXAMINATION: Blood pressure 110/72 with a pulse of 83, temperature 98.2, he is 95% on room air. General description is a middle-aged male lying in bed in no distress. Respiratory system unlabored breathing, clear to auscultation anteriorly. Heart S1, S2. Regular rate and rhythm. No edema of the feet. LABS: Hemoglobin is 11.1, white count of 5.9, BUN of 19, creatinine 0.54. Urine with Pseudomonas aeruginosa. Blood culture has been negative. DIAGNOSTIC IMPRESSION AND PLAN: Patient admitted to the hospital with concern for possible pneumonia. This patient has not been able to provide sputum. He did have a component of a catheter associated urinary tract infection, urine has been finalized with Pseudomonas sensitive to cefepime and the patient white count normalized. Continue cefepime for another 5 days to finish a course of therapy. Continue supportive care. MMODL / IJN: [id number] /
[2021-07-07] MEDS: guaiFENesin SYRUP 100MG/5ML 200 MG/10 ML CUP PEG/G-TUBE SCH ×5 (00:14→23:12)
[2021-07-07] MEDS: CEFEPIME 2 GM in SODIUM CHLORIDE 0.9% 100 ML IVPB SCH ×4 (00:16→23:12)
[2021-07-07] MEDS: FAMOTIDINE 8 MG/ML ORAL.SUSP PEG/G-TUBE SCH ×2 (00:18→21:08)
[2021-07-07] MEDS: BACLOFEN 10 MG TAB PEG/G-TUBE SCH ×3 (05:33→21:07)
[2021-07-07] MEDS: OXYBUTYNIN CHLORIDE 5 MG TAB PEG/G-TUBE SCH ×3 (05:33→21:07)
[2021-07-07] MEDS: LACOSAMIDE 150 MG TABLET PEG/G-TUBE SCH ×2 (07:31→21:07)
[2021-07-07] MEDS: METOPROLOL TARTRATE 25 MG TAB PEG/G-TUBE SCH ×2 (07:31→21:07)
[2021-07-07] MEDS: ASPIRIN 81 MG PEG/G-TUBE SCH (07:31)
[2021-07-07] MEDS: LACTULOSE 20 GM/30 ML CUP PEG/G-TUBE SCH ×2 (07:31→21:08)
[2021-07-07] MEDS: ENOXAPARIN 40 MG/0.4 ML SYRINGE SQ SCH (07:31)
[2021-07-07] MEDS: CHOLECALCIFEROL 25 MCG (1000 IU) TABLET PEG/G-TUBE SCH (07:31)
[2021-07-07] MEDS: carBAMazepine 200 MG TAB PEG/G-TUBE SCH ×2 (07:32→21:07)
--- NOTE | 2021-07-07 07:34 | XR ---
EXAMINATION TYPE: XR chest 1V DATE OF EXAM: 07/07/2021 COMPARISON: 07/03/2021 HISTORY: 61-year-old male shortness of breath TECHNIQUE: Single frontal view of the chest is obtained. FINDINGS: Heart limits of normal in size. Interstitial density persists but shows considerable improvement. Pat ying retrocardiac opacity remains. Old left-sided rib fracture deformity. Strandy atelectasis in the r ight midlung. IMPRESSION: 1. Interstitial density remains that shows considerable improvement. Correlate for residual pulmonary vascular congestion. 2. Continued patchy retrocardiac atelectasis and/or consolidation.
--- NOTE | 2021-07-07 16:49 | PN ---
PROGRESS NOTE DATE OF SERVICE: 07/07/2021 REASON FOR FOLLOWUP: Catheter-associated urinary tract infection with pseudomonas and a question of pneumonia. INTERVAL HISTORY: The patient is afebrile. The patient is breathing comfortably on room air. The patient is hemodynamically stable. No vomiting, diarrhea or any other changes reported by the nursing staff. The patient himself was unable to provide any history. PHYSICAL EXAMINATION: Blood pressure 138/87 with a pulse of 86, temperature 98. He is 93% on room air. General description is a middle-aged male lying in bed in no distress. Respiratory system: Unlabored breathing. Decreased intensity of breath sounds. No wheeze. HEART: S1, S2. Regular rate and rhythm. ABDOMEN: Soft. No tenderness. EXTREMITIES: No edema of the feet. LABS: Hemoglobin is 11.4, white count 5.9. BUN of 19, creatinine 0.54. Urine with Pseudomonas. Blood culture has been negative. Chest x-ray DIAGNOSTIC IMPRESSION AND PLAN: Patient admitted to hospital with a congested cough with concern for pneumonia and UTI. The patient clinically responded to the cefepime. That will be continued close outpatient followup. MMODL / IJN: [id number] /
[2021-07-07] MEDS: SODIUM CHLORIDE 0.9% 1,000 ML IV SCH (17:33)
--- NOTE | 2021-07-07 21:53 | P.PN ---
Subjective 61-year-old male history of advanced MS , multiple hospitalization with multiple infections and multiple medical problems who was just discharged earlier this week after being treated for a UTI and pneumonia inpatient. He apparently is not doing well and demonstrating increased shortness of breath cough and evidence of failure of outpatient treatment. Is brought in by EMS for evaluation. No nausea no vomiting no reports of fevers chills or sweats patient himself is a poor historian and unable to render any information. Patient is unable to provide any history so all information is obtained from patient's chart Workup in ED revealed elevated troponin and d-dimer; patient is admitted for failed outpatient treatment for pneumonia D-dimer is 1.04. ProBNP is not significantly elevated at 587. Virus profile were negative including influenza, RSV and Covid. Chest x-ray and CTA showed bilateral lower lobe patchy infiltrate. No PE. Patient has been evaluated by ID team and currently he is on cefepime 07/05/2021 Patient is more awake and alert today however he is not interactive and he does not follow commands. no fever. Hemodynamically stable. Urine culture and blood culture are still pending Procalcitonin elevated 0.17 and C-reactive protein 16.5 Remains on normal saline at 40 mL per hour, tube feeding at 60 mL per hour and cefepime 2 g. 07/06/2021 Patient clinically the same. His vitals are stable. No more fevers since admission. W proceed back to normal at 5.9 and electrolytes and creatinine are normal. He remains on normal saline at 40 beats per hour, tube feeding running at 60 mL/h and cefepime 2 g every 8 hours. Urine culture is growing Pseudomonas which is sensitive to cefepime. Repeat chest x-ray in the morning 07/07/2021 Patient is clinically improving and back to baseline. Urine culture showing P seudomonas. Stein catheter was changed Chest x-ray from today showing improvement in his pneumonia. No fever, leukocytosis resolved Patient is clinically stable Discussed the case with infectious disease team patient can be discharged after placement However PICC line cannot be placed today and plan for him to get PICC line and discharge back to his senior living with IV antibiotics for 4-5 days to finish his course of therapy Objective - Vital Signs Vital signs: Vital Signs Temp 98.1 F 07/07/21 19:32 Pulse 75 07/07/21 19:32 Resp 14 07/07/21 19:32 BP 147/65 07/07/21 19:32 Pulse Ox 97 07/07/21 19:32 Intake & Output 07/07/21 07/07/21 07/08/21 06:59 18:59 06:59 Intake Total 1390 1520 Output Total 1700 Balance 1390 -180 Weight 75 kg Intake: Intake, IV Titration 580 680 Amount Cefepime 2 gm In Sodium 100 200 Chloride 0.9% 100 ml @ 25 mls/hr IVPB Q8HR [facility] Rx# :[id number] Sodium Chloride 0.9% 1, 480 480 000 ml @ 40 mls/hr IV . Q24H [facility] Rx#:[id number] Oral 0 Tube Feeding 720 720 Other 90 120 Output: Urine 1700 Other: Voiding Method Indwelling Catheter Indwelling Catheter - Exam -GENERAL: The patient is awake, does not follow commands, not in any acute distress. Well developed, well nourished. HEENT: Pupils are round and equally reacting to light. EOMI. No scleral icterus. No conjunctival pallor. Normocephalic, atraumatic. No pharyngeal erythema. No thyromegaly. CARDIOVASCULAR: S1 and S2 present. No murmurs, rubs, or gallops. PULMONARY: Chest is clear to auscultation, no wheezing or crackles. -ABDOMEN: Soft, nontender, nondistended, normoactive bowel sounds. No palpable organomegaly. PEG tube is in place MUSCULOSKELETAL: No joint swelling or deformity. EXTREMITIES: No cyanosis, clubbing, or pedal edema. NEUROLOGICAL: Gross neurological examination did not reveal any focal deficits. SKIN: No rashes. no petechiae. - Labs CBC & Chem 7: 07/06/21 05:56 07/06/21 05:56 Labs: Microbiology - Last 24 Hours (Table) 07/02/21 20:40 Blood Culture - Preliminary Blood No Growth after 96 hours 07/02/21 20:03 Blood Culture - Preliminary Blood No Growth after 96 hours Assessment and Plan Assessment: Sepsis with leukocytosis and fever UTI, associated with urine catheter secondary to Pseudomonas versus bilateral lower lobe pneumonia Severe multiple sclerosis, bedridden Metabolic encephalopathy secondary to above multiple sclerosis Moderate to severe coronary protein malnutrition History of DVT History of GERD Hypertension Gait dysfunction secondary to multiple sclerosis Osteoarthritis Plan: This is a pleasant 61 years old male who presents with sepsis, UTI versus pneumonia Continue with cefepime Infectious disease team on the case Urine culture and blood culture Labs and medication were reviewed.. Continue same treatment. Continue with symptomatic treatment. Resume home medication. Monitor lytes and vitals. DVT and GI prophylaxis. Further recommendationsas per clinical course of the patient DVT prophylaxis: Subcutaneous Lovenox GI Prophylaxis: Pepcid Prognosis is guarded
[2021-07-08 02:40] VITALS: RESP 17
[2021-07-08 04:28] LABS: Glucose,Whole Blood 109 mg/dL (75-99)
[2021-07-08] MEDS: guaiFENesin SYRUP 100MG/5ML 200 MG/10 ML CUP PEG/G-TUBE SCH ×3 (05:14→16:32)
[2021-07-08] MEDS: OXYBUTYNIN CHLORIDE 5 MG TAB PEG/G-TUBE SCH ×2 (05:14→14:07)
[2021-07-08] MEDS: BACLOFEN 10 MG TAB PEG/G-TUBE SCH ×2 (05:14→13:57)
[2021-07-08] MEDS: CEFEPIME 2 GM in SODIUM CHLORIDE 0.9% 100 ML IVPB SCH ×2 (07:35→16:32)
[2021-07-08] MEDS: LACOSAMIDE 150 MG TABLET PEG/G-TUBE SCH (07:37)
[2021-07-08] MEDS: METOPROLOL TARTRATE 25 MG TAB PEG/G-TUBE SCH (07:37)
[2021-07-08] MEDS: CHOLECALCIFEROL 25 MCG (1000 IU) TABLET PEG/G-TUBE SCH (07:37)
[2021-07-08] MEDS: ENOXAPARIN 40 MG/0.4 ML SYRINGE SQ SCH (07:37)
[2021-07-08] MEDS: ASPIRIN 81 MG PEG/G-TUBE SCH (07:37)
[2021-07-08] MEDS: LACTULOSE 20 GM/30 ML CUP PEG/G-TUBE SCH (07:37)
[2021-07-08] MEDS: carBAMazepine 200 MG TAB PEG/G-TUBE SCH (07:38)
[2021-07-08 12:37] LABS: Glucose,Whole Blood 109 mg/dL (75-99)
--- NOTE | 2021-07-08 13:10 | P.DS ---
Providers Date of admission: 07/02/21 22:11 Attending physician: Dara Crowe Consults: 07/03/21 09:46 Consult Physician Routine Consulting Provider: Sonal Farah Consult Reason/Comments: HCAP Do you want consulting provider notified?: Yes Primary care physician: Matteo Hernandez Hospital Course: Diagnoses: Sepsis with leukocytosis and fever UTI, associated with urine catheter secondary to Pseudomonas versus bilateral lower lobe pneumonia Severe multiple sclerosis, bedridden Metabolic encephalopathy secondary to above multiple sclerosis Moderate to severe coronary protein malnutrition History of DVT History of GERD Hypertension Gait dysfunction secondary to multiple sclerosis Osteoarthritis Hospital course: 61-year-old male history of advanced MS , multiple hospitalization with multiple infections and multiple medical problems who was just discharged earlier this week after being treated for a UTI and pneumonia inpatient. He apparently is not doing well and demonstrating increased shortness of breath cough and evidence of failure of outpatient treatment. Is brought in by EMS for evaluation. No nausea no vomiting no reports of fevers chills or sweats patient himself is a poor historian and unable to render any information. Patient presents with sepsis secondary to UTI and pneumonia. Infectious disease consult obtained. He was placed on cefepime Patient is clinically improving and back to baseline. Urine culture showing Pseudomonas. Stein catheter was changed Chest x-ray from yesterday showing improvement in his pneumonia. No fever, leukocytosis resolved Patient is clinically stable Discussed the case with infectious disease team patient can be discharged after PICC line placement. He will need IV antibiotics for a few days, antibiotic upon discharge per ID team Patient was found stable and can be discharged retirement in guarded prognosis however he needs follow-up as an outpatient. Patient was instructed to follow up with PCP within one week and patient agrees Physical exam -Gen: patient is a week, does not answer questions, nonverbal , no distress. Generalized contraction CVS: S1-S2, RRR, no murmur Lungs: B/L CTA, no wheezing -Abdomen: soft, no distention, no tenderness, positive bowel sounds. Leal tube is in place Extremity: no leg edema or induration Time spent more than 35 minutes Patient Condition at Discharge: Fair Plan - Discharge Summary New Discharge Prescriptions: No Action Oxybutynin Chloride [Ditropan Oral Soln] 5 mg PEG/G-TUBE TID@0600,1400,2200 Ipratropium-Albuterol Nebulize [Duoneb 0.5 mg-3 mg/3 ml Soln] 3 ml INHALATION RT-Q6H PRN PRN Reason: Shortness Of Breath Baclofen [Lioresal] 10 mg PEG/G-TUBE TID@0600,1400,2200 Scopolamine [Scopolamine 1 MG/72 HR patch] 1 patch TRANSDERM Q72H amantadine HCL [Amantadine] 100 mg PEG/G-TUBE DAILY@0900 Cranberry Fruit Extract [Cranberry] 500 mg PEG/G-TUBE DAILY@0900 Aspirin 81 mg PEG/G-TUBE DAILY@0900 Lactulose 20 gm PEG/G-TUBE BID@899,2099 Acetaminophen Tab [Tylenol] 650 mg PEG/G-TUBE Q6H PRN MDD 3GM/24HR PRN Reason: Fever And/ Or Pain carBAMazepine [carBAMazepine Oral Susp] 200 mg PEG/G-TUBE BID@899,2099 Famotidine [Pepcid] 20 mg PEG/G-TUBE HS Magnesium Hydroxide [Milk of Magnesia Concentrate] 7,200 mg PEG/G-TUBE Q72H PRN PRN Reason: Constipation Metoprolol Tartrate [Lopressor] 25 mg PEG/G-TUBE Q12HR Metoprolol Tartrate [Lopressor] 50 mg PEG/G-TUBE Q12HR Lacosamide [Vimpat] 150 mg PEG/G-TUBE BID@899,2099 #6 tab Cholecalciferol [Vitamin D3 (25 Mcg = 1000 Iu)] 25 mcg PEG/G-TUBE DAILY guaiFENesin [guaiFENesin Oral Solution] 200 mg PEG/G-TUBE Q6H Discharge Medication List Oxybutynin Chloride [Ditropan Oral Soln] 5 mg PEG/G-TUBE TID@0600,1400,2200 09/08/19 [History] Ipratropium-Albuterol Nebulize [Duoneb 0.5 mg-3 mg/3 ml Soln] 3 ml INHALATION RT-Q6H PRN 12/16/19 [History] Baclofen [Lioresal] 10 mg PEG/G-TUBE TID@0600,1400,2200 07/16/20 [History] Scopolamine [Scopolamine 1 MG/72 HR patch] 1 patch TRANSDERM Q72H 09/07/20 [History] Aspirin 81 mg PEG/G-TUBE DAILY@89911/27/20 [History] Cranberry Fruit Extract [Cranberry] 500 mg PEG/G-TUBE DAILY@89911/27/20 [History] amantadine HCL [Amantadine] 100 mg PEG/G-TUBE DAILY@89911/27/20 [History] Famotidine [Pepcid] 20 mg PEG/G-TUBE HS 03/07/21 [History] Lactulose 20 gm PEG/G-TUBE BID@899,209903/07/21 [History] Magnesium Hydroxide [Milk of Magnesia Concentrate] 7,200 mg PEG/G-TUBE Q72H PRN 03/07/21 [History] Acetaminophen Tab [Tylenol] 650 mg PEG/G-TUBE Q6H PRN MDD 3GM/24HR 06/13/21 [History] Metoprolol Tartrate [Lopressor] 25 mg PEG/G-TUBE Q12HR 06/13/21 [History] Metoprolol Tartrate [Lopressor] 50 mg PEG/G-TUBE Q12HR 06/13/21 [History] Lacosamide [Vimpat] 150 mg PEG/G-TUBE BID@899,2099 #6 tab 06/17/21 [Rx] Cholecalciferol [Vitamin D3 (25 Mcg = 1000 Iu)] 25 mcg PEG/G-TUBE DAILY 07/02/21 [History] carBAMazepine [carBAMazepine Oral Susp] 200 mg PEG/G-TUBE BID@0900,209907/02/21 [History] guaiFENesin [guaiFENesin Oral Solution] 200 mg PEG/G-TUBE Q6H 07/02/21 [History] Follow up Appointment(s)/Referral(s): Matteo Hernandez MD [Primary Care Provider] - 1-2 days
[2021-07-08 13:25] VITALS: BMI 23.1
--- NOTE | 2021-07-08 14:18 | PN ---
PROGRESS NOTE DATE OF SERVICE: 07/08/2021 REASON FOR FOLLOWUP: Pseudomonas urinary tract infection and pneumonia. INTERVAL HISTORY: The patient is afebrile. The patient is currently breathing comfortably on room air. The patient is hemodynamically stable. No vomiting, diarrhea or any other change reported by the nursing staff. PHYSICAL EXAMINATION: Blood pressure is 127/84, pulse of 62, temperature 98.8. He is 95% on room air. General description is a middle-aged male lying in bed in no distress. RESPIRATORY SYSTEM: Unlabored breathing. Clear to auscultation anteriorly. HEART: S1, S2. Regular rate and rhythm. ABDOMEN: Soft. No tenderness. LABS: No new labs have been obtained today. DIAGNOSTIC IMPRESSION AND PLAN: Patient with a Pseudomonas urinary tract infection with concern for possible pneumonia. He will finish therapy with another 5 days of IV cefepime 2 grams q.8 hours and close outpatient followup. MMODL / IJN: [id number] /
[2021-07-08 14:45] VITALS: BP 124/79; PULSE 84; TEMP 97.8
== END 2021-07-08 17:30 | DRG 698 ==
LOC: EC 19:48 → 3SCARD 22:11 → 4SSUR 07-05 23:12
PROVIDERS: ADMIT Hospitalist; ATTEND Hospitalist
PROC: 05HB33Z Insertion of Infusion Device into Right Basilic Vein, Percutaneous Approach (ICD-10-PCS; principal; 2021-07-08 08:25)
DX: T83.511A Infection and inflammatory reaction due to indwelling urethral catheter, initial encounter (principal); A41.52 Sepsis due to Pseudomonas; J69.0 Pneumonitis due to inhalation of food and vomit; G93.41 Metabolic encephalopathy; Z43.1 Encounter for attention to gastrostomy; J98.11 Atelectasis; E44.0 Moderate protein-calorie malnutrition; G35 Multiple sclerosis; N39.0 Urinary tract infection, site not specified; L89.622 Pressure ulcer of left heel, stage 2; G40.909 Epilepsy, unspecified, not intractable, without status epilepticus; Z20.822 Contact with and (suspected) exposure to COVID-19; L89.611 Pressure ulcer of right heel, stage 1; K21.9 Gastro-esophageal reflux disease without esophagitis; I10 Essential (primary) hypertension; R13.10 Dysphagia, unspecified; N31.9 Neuromuscular dysfunction of bladder, unspecified; R47.1 Dysarthria and anarthria; R09.02 Hypoxemia; R77.8 Other specified abnormalities of plasma proteins; M19.90 Unspecified osteoarthritis, unspecified site; G50.0 Trigeminal neuralgia; R15.9 Full incontinence of feces; Z68.23 Body mass index [BMI] 23.0-23.9, adult; Z79.82 Long term (current) use of aspirin; Z79.899 Other long term (current) drug therapy; Z86.718 Personal history of other venous thrombosis and embolism; Z87.01 Personal history of pneumonia (recurrent); Z87.81 Personal history of (healed) traumatic fracture; Z86.14 Personal history of Methicillin resistant Staphylococcus aureus infection; Z86.19 Personal history of other infectious and parasitic diseases; Z90.89 Acquired absence of other organs; Z86.69 Personal history of other diseases of the nervous system and sense organs; Z74.01 Bed confinement status; Z86.59 Personal history of other mental and behavioral disorders; Z98.890 Other specified postprocedural states; Y84.6 Urinary catheterization as the cause of abnormal reaction of the patient, or of later complication, without mention of misadventure at the time of the procedure; Z88.1 Allergy status to other antibiotic agents; Z82.49 Family history of ischemic heart disease and other diseases of the circulatory system
CPT/HCPCS: 36410; 36415; 71045; 71046; 71275; 76937; 80048; 80053; 80061; 81001; 82550; 83605; 83735; 83880; 84145; 84484; 85025; 85379; 85610; 85730; 86140; 87040; 87077; 87086; 87186; 87636; 93005; 94760; 96360; 96361; 99285

== ENCOUNTER → 2021-08-23 | Outpatient (CLI) | payer MEDICARE, OTHER ==
[2021-08-23 18:50] LABS: Basophils # (A) 0.05 X 10*3/uL (0.00-0.10); Basophils % (A) 0.7 %; Eosinophils # (A) 0.41 X 10*3/uL (0.04-0.35); Eosinophils % (A) 6.1 %; HCT 43.4 % (39.6-50.0); HGB 12.9 g/dL (13.0-17.0); Lymphocytes # (A) 1.36 X 10*3/uL (0.90-5.00); Lymphocytes % (A) 20.1 %; MCH 24.4 pg (27.0-32.0); MCHC 29.7 g/dL (32.0-37.0); Mean Platelet Volume 11.2 fL (9.5-12.2); Monocytes % (A) 8.9 %; Neutrophils # (A) 4.31 X 10*3/uL (1.80-7.70); Neutrophils % (A) 63.8 %; Platelet Count 323 X 10*3/uL (140-440); RBC 5.29 X 10*6/uL (4.40-5.60); RDW 16.6 % (11.5-14.5); WBC 6.76 X 10*3/uL (4.50-10.00)
[2021-08-23 21:02] LABS: ALT 25 U/L (10-49); AST 26 U/L (14-35); African American GFR (CKD) 117.2 (60.0-200.0); Albumin 3.8 g/dL (3.8-4.9); Albumin/Globulin Ratio 1.19 (1.60-3.17); Alkaline Phosphatase 135 U/L (41-126); BUN/Creat Ratio 30.43 Ratio (12.00-20.00); Blood Urea Nitrogen 21.3 mg/dL (9.0-27.0); Calcium 8.8 mg/dL (8.7-10.3); Carbon Dioxide 16.1 mmol/L (20.0-27.5); Chloride 103 mmol/L (96-109); Globulin 3.2 g/dL (1.6-3.3); Glucose 107 mg/dL (70-110); Non-African American GFR(CKD) 101.1 (60.0-200.0); Potassium 4.6 mmol/L (3.5-5.5); Sodium 133 mmol/L (135-145); Total Bilirubin <0.20 mg/dL (0.30-1.20)
== END | disposition home or self-care (01) ==
LOC: LABWHC1 11:48
PROVIDERS: ATTEND Psychiatry & Neurology Neurology
DX: Z51.81 Encounter for therapeutic drug level monitoring (principal); G81.10 Spastic hemiplegia affecting unspecified side; G35 Multiple sclerosis
CPT/HCPCS: 36415; 80053; 85025

== ENCOUNTER 2021-08-28 22:03 | Emergency (ER) | payer MEDICARE, OTHER ==
[2021-08-28] MEDS ORDERED: SODIUM CHLORIDE 0.9% 1,000 ML IV STA (22:17)
[2021-08-28] MEDS ORDERED: ONDANSETRON 4 MG/2 ML VIAL IVP STA (22:17)
[2021-08-28] MEDS ORDERED: PANTOPRAZOLE 40 MG/10 ML VIAL IVP STA (22:17)
[2021-08-28 22:18] VITALS: RESP 20; TEMP 98.7
--- NOTE | 2021-08-28 22:18 | ED ---
Nausea/Vomiting/Diarrhea HPI - General Stated complaint: Vomiting Time Seen by Provider: 08/28/21 22:10 Source: RN notes reviewed, old records reviewed, Caregiver Mode of arrival: EMS Limitations: no limitations - History of Present Illness Initial comments: This is a 61-year-old male to the emergency department for evaluation patient resents today for evaluation of significant nausea vomiting diarrhea and abdominal pain. Patient has history of last never has menstrual problem with her. Patient states at this time he does not feel well. They do think. Significant nausea vomiting no current nausea and vomiting. History obtained from staff and EMS as well as patient's chart MD complaint: nausea, vomiting, diarrhea, abdominal pain -: days(s) Description of Vomiting: food contents, coffee grounds Associated Abdominal Pain: Yes Location: diffuse Radiation: none Severity: mild Severity scale (1-10): 3 Quality: cramping Consistency: constant Improves with: none Worsens with: none Associated Symptoms: myalgias, loss of appetite, nausea/vomiting, weakness - Related Data Home Medications Medication Instructions Recorded Confirmed Oxybutynin Chloride [Ditropan Oral 5 mg PEG/G-TUBE TID@0600,1400,2200 09/08/19 08/28/21 Soln] Ipratropium-Albuterol Nebulize 3 ml INHALATION RT-Q6H PRN 12/16/19 08/28/21 [Duoneb 0.5 mg-3 mg/3 ml Soln] Baclofen [Lioresal] 10 mg PEG/G-TUBE TID@0600,1400,2200 07/16/20 08/28/21 Scopolamine [Scopolamine 1 MG/72 1 patch TRANSDERM Q72H 09/07/20 08/28/21 HR patch] Aspirin 81 mg PEG/G-TUBE DAILY@0900 11/27/20 08/28/21 Cranberry Fruit Extract [Cranberry] 500 mg PEG/G-TUBE DAILY@0900 11/27/20 08/28/21 amantadine HCL [Amantadine] 100 mg PEG/G-TUBE DAILY@0900 11/27/20 08/28/21 Famotidine [Pepcid] 20 mg PEG/G-TUBE HS 03/07/21 08/28/21 Lactulose 20 gm PEG/G-TUBE BID@0900,2100 03/07/21 08/28/21 Magnesium Hydroxide [Milk of 7,200 mg PEG/G-TUBE Q72H PRN 03/07/21 08/28/21 Magnesia Concentrate] Acetaminophen Tab [Tylenol] 650 mg PEG/G-TUBE Q6H PRN MDD 06/13/21 08/28/21 3GM/24HR Metoprolol Tartrate [Lopressor] 25 mg PEG/G-TUBE Q12HR 06/13/21 08/28/21 Metoprolol Tartrate [Lopressor] 50 mg PEG/G-TUBE Q12HR 06/13/21 08/28/21 Cholecalciferol [Vitamin D3 (25 25 mcg PEG/G-TUBE DAILY 07/02/21 08/28/21 Mcg = 1000 Iu)] carBAMazepine [carBAMazepine Oral 200 mg PEG/G-TUBE BID@0900,2100 07/02/21 08/28/21 Susp] Sennosides [Senna] 8.6 mg PEG/G-TUBE HS 08/28/21 08/28/21 Previous Rx's Medication Instructions Recorded Lacosamide [Vimpat] 150 mg PEG/G-TUBE BID@0900,2100 #6 07/08/21 tab Allergies Allergy/AdvReac Type Severity Reaction Status Date / Time meropenem [From Merrem] Allergy Rash/Hives Verified 08/28/21 22:16 Review of Systems ROS Statement: Those systems with pertinent positive or pertinent negative responses have been documented in the HPI. ROS Other: All systems not noted in ROS Statement are negative. Past Medical History Past Medical History: Deep Vein Thrombosis (DVT), GERD/Reflux, Hypertension, Musculoskeletal Disorder, Neurologic Disorder, Pneumonia, Seizure Disorder, Skin Disorder Additional Past Medical History / Comment(s): Pt diagnosed with MS at the age of 39 yrs, eizure/pneumonia/UTI with sepsis/respirtory failure/vented, cognitive impairment, sister states when he is feeling well he could speak a few words/nod head appropriately/give thumbs up/roll eyes but when ill is nonverbal, pt has dysphagia/NPO with peg tube, contractures, last seizure 07/2020, trigeminal neuralgia, dysarthria/anarthria/neurogenic bladder with IDC-UTIs/sepsis, multiple pneumonias, recent seizure-last one 07/03/20, incontinent of stool, pt has had decubitus ulcer coccyx-sister unsure of skin condition at this time, past anemia r/t heparin/epistaxiis which involved nasal packing/transfusions, DVT bilateral arms, hypoxia, oxygen at 2L/NC, L femoral head fracture History of Any Multi-Drug Resistant Organisms: ESBL, MRSA Date of last positivie culture/infection: 03/09/21-MRSA; 11/23/19 ESBL-E.coli MDRO Source:: Abdomen-Peg site MRSA; Urine -ESBL Past Surgical History: Tonsillectomy Additional Past Surgical History / Comment(s): Gastrostomy, peg tube, I&D coccyx decubitius, bronchoscopy, bilateral lasik eye surgery. Past Anesthesia/Blood Transfusion Reactions: No Reported Reaction Additional Past Anesthesia/Blood Transfusion Reaction / Comment(s): Pt has received blood in past without reaction. Past Psychological History: Depression Additional Psychological History / Comment(s): Pt resides at [facility]. He normally is in bed/amita lift to wheelchair. Has peg/IDC Smoking Status: Never smoker Past Alcohol Use History: None Reported Past Drug Use History: None Reported - Past Family History Father Family Medical History: Myocardial Infarction (AR) Mother Family Medical History: Hypertension, Myocardial Infarction (AR) Additional Family Medical History / Comment(s): Mother of a AR at the age of 73 yrs. General Exam General appearance: alert, in no apparent distress, anxious Head exam: Present: atraumatic, normocephalic, normal inspection Eye exam: Present: normal appearance, PERRL, EOMI. Absent: scleral icterus, conjunctival injection, periorbital swelling ENT exam: Present: normal exam, mucous membranes moist Neck exam: Present: normal inspection. Absent: tenderness, meningismus, lymphadenopathy Respiratory exam: Present: normal lung sounds bilaterally. Absent: respiratory distress, wheezes, rales, rhonchi, stridor Cardiovascular Exam: Present: regular rate, normal rhythm, normal heart sounds. Absent: systolic murmur, diastolic murmur, rubs, gallop, clicks GI/Abdominal exam: Present: soft, normal bowel sounds. Absent: distended, t enderness, guarding, rebound, rigid Extremities exam: Present: normal inspection, full ROM, normal capillary refill. Absent: tenderness, pedal edema, joint swelling, calf tenderness Back exam: Present: normal inspection Neurological exam: Present: alert, oriented X3, CN II-XII intact Psychiatric exam: Present: normal affect, normal mood Skin exam: Present: warm, dry, intact, normal color. Absent: rash Course Vital Signs 08/28/21 08/29/21 08/29/21 22:11 00:20 02:13 Temperature 98.7 F Pulse Rate 103 H 112 H 90 Respiratory 20 20 20 Rate Blood Pressure 176/111 169/129 172/102 O2 Sat by Pulse 94 L 94 L 94 L Oximetry - Reevaluation(s) Reevaluation #1: Medical record is reviewed Patient symptoms are significantly improved in the emergency department Patient informed results and questions answered Medical Decision Making - Medical Decision Making 61 male emergency department with MS, positive nausea vomiting diarrhea, symptoms improved here in the ER patient prefers discharge home - Lab Data Result diagrams: 08/28/21 22:37 08/28/21 22:37 Lab Results 08/28/21 08/28/21 08/28/21 Range/Units 22:37 22:37 22:37 WBC 10.1 (3.8-10.6) k/uL RBC 6.02 H (4.30-5.90) m/uL Hgb 15.2 D (13.0-17.5) gm/dL Hct 47.8 (39.0-53.0) % MCV 79.4 L (80.0-100.0) fL MCH 25.3 (25.0-35.0) pg MCHC 31.8 (31.0-37.0) g/dL RDW 16.5 H (11.5-15.5) % Plt Count 295 (150-450) k/uL MPV 8.7 Neutrophils % 81 % Lymphocytes % 9 % Monocytes % 6 % Eosinophils % 2 % Basophils % 0 % Neutrophils # 8.2 H (1.3-7.7) k/uL Lymphocytes # 0.9 L (1.0-4.8) k/uL Monocytes # 0.6 (0-1.0) k/uL Eosinophils # 0.2 (0-0.7) k/uL Basophils # 0.0 (0-0.2) k/uL Anisocytosis Slight Microcytosis Slight Sodium 137 (137-145) mmol/L Potassium 4.7 (3.5-5.1) mmol/L Chloride 102 (98-107) mmol/L Carbon Dioxide 23 (22-30) mmol/L Anion Gap 12 mmol/L BUN 26 H (9-20) mg/dL Creatinine 0.69 (0.66-1.25) mg/dL Est GFR (CKD-EPI)AfAm >90 (>60 ml/min/1.73 sqM) Est GFR (CKD-EPI)NonAf >90 (>60 ml/min/1.73 sqM) Glucose 96 (74-99) mg/dL Plasma Lactic Acid Taurus 1.5 (0.7-2.0) mmol/L Calcium 8.9 (8.4-10.2) mg/dL Phosphorus 4.1 (2.5-4.5) mg/dL Magnesium 2.1 (1.6-2.3) mg/dL Total Bilirubin 0.5 (0.2-1.3) mg/dL AST 56 (17-59) U/L ALT 30 (4-49) U/L Alkaline Phosphatase 140 H (38-126) U/L NT-Pro-B Natriuret Pep pg/mL Total Protein 8.5 H (6.3-8.2) g/dL Albumin 4.4 (3.5-5.0) g/dL Lipase 233 (23-300) U/L 08/28/21 Range/Units 22:37 WBC (3.8-10.6) k/uL RBC (4.30-5.90) m/uL Hgb (13.0-17.5) gm/dL Hct (39.0-53.0) % MCV (80.0-100.0) fL MCH (25.0-35.0) pg MCHC (31.0-37.0) g/dL RDW (11.5-15.5) % Plt Count (150-450) k/uL MPV Neutrophils % % Lymphocytes % % Monocytes % % Eosinophils % % Basophils % % Neutrophils # (1.3-7.7) k/uL Lymphocytes # (1.0-4.8) k/uL Monocytes # (0-1.0) k/uL Eosinophils # (0-0.7) k/uL Basophils # (0-0.2) k/uL Anisocytosis Microcytosis Sodium (137-145) mmol/L Potassium (3.5-5.1) mmol/L Chloride (98-107) mmol/L Carbon Dioxide (22-30) mmol/L Anion Gap mmol/L BUN (9-20) mg/dL Creatinine (0.66-1.25) mg/dL Est GFR (CKD-EPI)AfAm (>60 ml/min/1.73 sqM) Est GFR (CKD-EPI)NonAf (>60 ml/min/1.73 sqM) Glucose (74-99) mg/dL Plasma Lactic Acid Taurus (0.7-2.0) mmol/L Calcium (8.4-10.2) mg/dL Phosphorus (2.5-4.5) mg/dL Magnesium (1.6-2.3) mg/dL Total Bilirubin (0.2-1.3) mg/dL AST (17-59) U/L ALT (4-49) U/L Alkaline Phosphatase (38-126) U/L NT-Pro-B Natriuret Pep 348 pg/mL Total Protein (6.3-8.2) g/dL Albumin (3.5-5.0) g/dL Lipase (23-300) U/L - EKG Data -: EKG Interpreted by Me (EKG shows sinus rhythm 97, MD 148 QRS 76 QTC 426) - Radiology Data Radiology results: report reviewed (Chest x-rays negative for acute disease), image reviewed Disposition Clinical Impression: Multiple sclerosis, primary progressive, Weakness, Nausea and vomiting Disposition: HOME SELF-CARE Condition: Fair Instructions (If sedation given, give patient instructions): Acute Nausea and Vomiting (ED), Weakness (ED) Is patient prescribed a controlled substance at d/c from ED?: No Referrals: Matteo Hernandez MD [Primary Care Provider] - 1-2 days
[2021-08-28 23:17] LABS: Anisocytosis Slight; Basophils % (A) 0 %; Eosinophils # (A) 0.2 k/uL (0-0.7); Eosinophils % (A) 2 %; HCT 47.8 % (39.0-53.0); Lymphocytes # (A) 0.9 k/uL (1.0-4.8); Lymphocytes % (A) 9 %; MCH 25.3 pg (25.0-35.0); MCHC 31.8 g/dL (31.0-37.0); MCV 79.4 fL (80.0-100.0); Mean Platelet Volume 8.7; Microcytosis Slight; Monocytes # (A) 0.6 k/uL (0-1.0); Monocytes % (A) 6 %; Neutrophils # (A) 8.2 k/uL (1.3-7.7); Neutrophils % (A) 81 %; Platelet Count 295 k/uL (150-450); RBC 6.02 m/uL (4.30-5.90); RDW 16.5 % (11.5-15.5); WBC 10.1 k/uL (3.8-10.6)
[2021-08-28 23:42] LABS: ALT 30 U/L (4-49); African American GFR (CKD) >90 (>60 ml/min/1.73 sqM); Anion Gap 12 mmol/L; Blood Urea Nitrogen 26 mg/dL (9-20); Calcium 8.9 mg/dL (8.4-10.2); Carbon Dioxide 23 mmol/L (22-30); Chloride 102 mmol/L (98-107); Glucose 96 mg/dL (74-99); Lipase 233 U/L (23-300); Non-African American GFR(CKD) >90 (>60 ml/min/1.73 sqM); Sodium 137 mmol/L (137-145); Total Bilirubin 0.5 mg/dL (0.2-1.3)
[2021-08-29 00:05] LABS: HGB 15.2 gm/dL (13.0-17.5)
[2021-08-29 00:08] LABS: Potassium 4.7 mmol/L (3.5-5.1)
[2021-08-29 00:09] LABS: AST 56 U/L (17-59); Albumin 4.4 g/dL (3.5-5.0); Alkaline Phosphatase 140 U/L (38-126); Magnesium 2.1 mg/dL (1.6-2.3); Phosphorus 4.1 mg/dL (2.5-4.5); Total Protein 8.5 g/dL (6.3-8.2)
--- NOTE | 2021-08-29 01:13 | XR ---
EXAMINATION TYPE: XR chest 1V portable DATE OF EXAM: 08/29/2021 COMPARISON: 07/07/2021 HISTORY: Aspiration TECHNIQUE: FINDINGS: There is no heart failure. There is some chronic interstitial infiltrate left lower lobe. T here are no hilar masses. There is no pleural effusion or pneumothorax. IMPRESSION: There are some chronic infiltrate left lower lobe similar to old exam. No heart failure.
[2021-08-29 02:14] VITALS: BP 172/102; PULSE 90
== END 2021-08-29 02:14 | disposition home or self-care (01) ==
LOC: EC 22:03
DX: G35 Multiple sclerosis (principal); R11.2 Nausea with vomiting, unspecified; I10 Essential (primary) hypertension; K21.9 Gastro-esophageal reflux disease without esophagitis; G40.909 Epilepsy, unspecified, not intractable, without status epilepticus; F32.A Depression, unspecified; Z79.82 Long term (current) use of aspirin; Z79.899 Other long term (current) drug therapy
CPT/HCPCS: 36415; 93005; 83880; 80053; 83605; 83690; 83735; 84100; 85025; 71045; 99284; 96374; 96375; J2405; C9113; 84484

== ENCOUNTER 2021-09-01 13:13 | Emergency (ER) | payer MEDICARE, OTHER ==
[2021-09-01 13:36] VITALS: RESP 18; TEMP 98.2
--- NOTE | 2021-09-01 13:42 | ED ---
General Adult HPI - General Chief complaint: Recheck/Abnormal Lab/Rx Stated complaint: Peg tube cracked Time Seen by Provider: 09/01/21 13:28 Source: EMS, RN notes reviewed, old records reviewed Mode of arrival: EMS - History of Present Illness Initial comments: 59-year-old male presenting with malfunctioning PEG tube. The patient was noted to have a crack in his PEG tube and was sent to the emergency department for replacement. No other issues reported. - Related Data Home Medications Medication Instructions Recorded Confirmed Oxybutynin Chloride [Ditropan Oral 5 mg PEG/G-TUBE TID@0600,1400,2200 09/08/19 08/28/21 Soln] Ipratropium-Albuterol Nebulize 3 ml INHALATION RT-Q6H PRN 12/16/19 08/28/21 [Duoneb 0.5 mg-3 mg/3 ml Soln] Baclofen [Lioresal] 10 mg PEG/G-TUBE TID@0600,1400,2200 07/16/20 08/28/21 Scopolamine [Scopolamine 1 MG/72 1 patch TRANSDERM Q72H 09/07/20 08/28/21 HR patch] Aspirin 81 mg PEG/G-TUBE DAILY@0900 11/27/20 08/28/21 Cranberry Fruit Extract [Cranberry] 500 mg PEG/G-TUBE DAILY@0900 11/27/20 08/28/21 amantadine HCL [Amantadine] 100 mg PEG/G-TUBE DAILY@0900 11/27/20 08/28/21 Famotidine [Pepcid] 20 mg PEG/G-TUBE HS 03/07/21 08/28/21 Lactulose 20 gm PEG/G-TUBE BID@0900,2100 03/07/21 08/28/21 Magnesium Hydroxide [Milk of 7,200 mg PEG/G-TUBE Q72H PRN 03/07/21 08/28/21 Magnesia Concentrate] Acetaminophen Tab [Tylenol] 650 mg PEG/G-TUBE Q6H PRN MDD 06/13/21 08/28/21 3GM/24HR Metoprolol Tartrate [Lopressor] 25 mg PEG/G-TUBE Q12HR 06/13/21 08/28/21 Metoprolol Tartrate [Lopressor] 50 mg PEG/G-TUBE Q12HR 06/13/21 08/28/21 Cholecalciferol [Vitamin D3 (25 25 mcg PEG/G-TUBE DAILY 07/02/21 08/28/21 Mcg = 1000 Iu)] carBAMazepine [carBAMazepine Oral 200 mg PEG/G-TUBE BID@0900,2100 07/02/21 08/28/21 Susp] Sennosides [Senna] 8.6 mg PEG/G-TUBE HS 08/28/21 08/28/21 Previous Rx's Medication Instructions Recorded Lacosamide [Vimpat] 150 mg PEG/G-TUBE BID@0900,2100 #6 07/08/21 tab Allergies Allergy/AdvReac Type Severity Reaction Status Date / Time meropenem [From Merrem] Allergy Rash/Hives Verified 08/28/21 22:16 Review of Systems ROS Statement: Those systems with pertinent positive or pertinent negative responses have been documented in the HPI. ROS Other: All systems not noted in ROS Statement are negative. Past Medical History Past Medical History: Deep Vein Thrombosis (DVT), GERD/Reflux, Hypertension, Musculoskeletal Disorder, Neurologic Disorder, Pneumonia, Seizure Disorder, Skin Disorder Additional Past Medical History / Comment(s): Pt diagnosed with MS at the age of 39 yrs, eizure/pneumonia/UTI with sepsis/respirtory failure/vented, cognitive impairment, sister states when he is feeling well he could speak a few words/nod head appropriately/give thumbs up/roll eyes but when ill is nonverbal, pt has dysphagia/NPO with peg tube, contractures, last seizure 07/2020, trigeminal neuralgia, dysarthria/anarthria/neurogenic bladder with IDC-UTIs/sepsis, multiple pneumonias, recent seizure-last one 07/03/20, incontinent of stool, pt has had decubitus ulcer coccyx-sister unsure of skin condition at this time, past anemia r/t heparin/epistaxiis which involved nasal packing/transfusions, DVT bilateral arms, hypoxia, oxygen at 2L/NC, L femoral head fracture History of Any Multi-Drug Resistant Organisms: ESBL, MRSA Date of last positivie culture/infection: 03/09/21-MRSA; 11/23/19 ESBL-E.coli MDRO Source:: Abdomen-Peg site MRSA; Urine -ESBL Past Surgical History: Tonsillectomy Additional Past Surgical History / Comment(s): Gastrostomy, peg tube, I&D coccyx decubitius, bronchoscopy, bilateral lasik eye surgery. Past Anesthesia/Blood Transfusion Reactions: No Reported Reaction Additional Past Anesthesia/Blood Transfusion Reaction / Comment(s): Pt has received blood in past without reaction. Past Psychological History: Depression Smoking Status: Never smoker Past Alcohol Use History: None Reported Past Drug Use History: None Reported - Past Family History Father Family Medical History: Myocardial Infarction ([place]) Mother Family Medical History: Hypertension, Myocardial Infarction ([place]) Additional Family Medical History / Comment(s): Mother of a [place] at the age of 73 yrs. General Exam General appearance: alert, in no apparent distress Head exam: Present: atraumatic, normocephalic ENT exam: Present: mucous membranes dry Neck exam: Present: normal inspection. Absent: tenderness Respiratory exam: Present: normal lung sounds bilaterally. Absent: respiratory distress, wheezes Cardiovascular Exam: Present: regular rate, normal rhythm GI/Abdominal exam: Present: soft, other (PEG tube site is nonerythematous, no signs of infection.). Absent: distended, tenderness Course Vital Signs 09/01/21 13:29 Temperature 98.2 F Pulse Rate 72 Respiratory 18 Rate Blood Pressure 137/71 O2 Sat by Pulse 100 Oximetry Procedures - Feeding Tube Replacement Reason for Replacement: not functioning/damaged Initial Tube Inserted: greater than 2 weeks Type of Tube: gastrostomy Use of Tube: medications and feeding Insertion Site Prior to Procedure: clean Tube Used for Reinsertion: other ([place] ) Balloon Size (mls): 7 Verification of Placement: gastrografin injection Tube Secured by: tape/dressing Patient Tolerated Procedure: well Medical Decision Making - Medical Decision Making 61-year-old male presenting with malfunctioning PEG tube. This is replaced the emergency department. Location confirmed by contrast x-ray. Patient returned to the [facility]. Disposition Clinical Impression: Gastrostomy tube dependent, PEG tube malfunction Disposition: HOME SELF-CARE Condition: Fair Instructions (If sedation given, give patient instructions): PEG Tube Insertion (DC) Is patient prescribed a controlled substance at d/c from ED?: No Referrals: Matteo Hernandez MD [Primary Care Provider] - 1-2 days Time of Disposition: 14:30
--- NOTE | 2021-09-01 14:03 | XR ---
EXAMINATION TYPE: XR KUB DATE OF EXAM: 09/01/2021 COMPARISON: 05/04/2021 HISTORY: pegogram pegogram. 50 mL isovue 370 injected through peg tube. Contrast is injected via the patient's PEG tube and into the stomach. There is no evidence for extrav asation. IMPRESSION: 1. As above
[2021-09-01 15:12] VITALS: BP 140/84; PULSE 98
== END 2021-09-01 15:12 | disposition home or self-care (01) ==
LOC: EC 13:13
DX: K94.23 Gastrostomy malfunction (principal); I10 Essential (primary) hypertension; K21.9 Gastro-esophageal reflux disease without esophagitis; G40.909 Epilepsy, unspecified, not intractable, without status epilepticus; F32.A Depression, unspecified; Z79.82 Long term (current) use of aspirin; Z79.899 Other long term (current) drug therapy
CPT/HCPCS: 43762; 74018; 99283

== ENCOUNTER 2021-10-31 03:10 | Emergency (ER) | payer MEDICARE, OTHER ==
[2021-10-31 03:21] VITALS: PULSE 83
--- NOTE | 2021-10-31 03:50 | XR ---
EXAMINATION TYPE: XR chest 1V portable DATE OF EXAM: 10/31/2021 COMPARISON: 08/29/2021 HISTORY: Cough TECHNIQUE: FINDINGS: There is no heart failure. There is a mild infiltrate left lung base. There are no hilar ma sses. Heart is top normal in size. There are small linear density right midlung field. IMPRESSION: There is some minimal infiltrate and atelectasis left lung base without much change. No h eart failure.
--- NOTE | 2021-10-31 04:09 | ED ---
General Adult HPI - General Chief complaint: Upper Respiratory Infection Stated complaint: Fever Time Seen by Provider: 10/31/21 03:11 Source: EMS, RN notes reviewed Mode of arrival: EMS - History of Present Illness Initial comments: 61-year-old male presenting with fever, and chest congestion. History obtained by paramedics and senior living staff. Patient is bedbound, multiple chronic medical conditions. He is nonverbal. He is unable to contribute to the history. He had noted fever this evening as well as chest congestion. There is been no history of vomiting. - Related Data Home Medications Medication Instructions Recorded Confirmed Oxybutynin Chloride [Ditropan Oral 5 mg PEG/G-TUBE TID@0600,1400,2200 09/08/19 08/28/21 Soln] Ipratropium-Albuterol Nebulize 3 ml INHALATION RT-Q6H PRN 12/16/19 08/28/21 [Duoneb 0.5 mg-3 mg/3 ml Soln] Baclofen [Lioresal] 10 mg PEG/G-TUBE TID@0600,1400,2200 07/16/20 08/28/21 Scopolamine [Scopolamine 1 MG/72 1 patch TRANSDERM Q72H 09/07/20 08/28/21 HR patch] Aspirin 81 mg PEG/G-TUBE DAILY@0900 11/27/20 08/28/21 Cranberry Fruit Extract [Cranberry] 500 mg PEG/G-TUBE DAILY@0900 11/27/20 08/28/21 amantadine HCL [Amantadine] 100 mg PEG/G-TUBE DAILY@0900 11/27/20 08/28/21 Famotidine [Pepcid] 20 mg PEG/G-TUBE HS 03/07/21 08/28/21 Lactulose 20 gm PEG/G-TUBE BID@0900,2100 03/07/21 08/28/21 Magnesium Hydroxide [Milk of 7,200 mg PEG/G-TUBE Q72H PRN 03/07/21 08/28/21 Magnesia Concentrate] Acetaminophen Tab [Tylenol] 650 mg PEG/G-TUBE Q6H PRN MDD 06/13/21 08/28/21 3GM/24HR Metoprolol Tartrate [Lopressor] 25 mg PEG/G-TUBE Q12HR 06/13/21 08/28/21 Metoprolol Tartrate [Lopressor] 50 mg PEG/G-TUBE Q12HR 06/13/21 08/28/21 Cholecalciferol [Vitamin D3 (25 25 mcg PEG/G-TUBE DAILY 07/02/21 08/28/21 Mcg = 1000 Iu)] carBAMazepine [carBAMazepine Oral 200 mg PEG/G-TUBE BID@0900,2100 07/02/21 08/28/21 Susp] Sennosides [Senna] 8.6 mg PEG/G-TUBE HS 08/28/21 08/28/21 Previous Rx's Medication Instructions Recorded Lacosamide [Vimpat] 150 mg PEG/G-TUBE BID@0900,2100 #6 07/08/21 tab Levofloxacin [Levaquin] 500 mg PO DAILY 7 Days #7 tab 10/31/21 Allergies Allergy/AdvReac Type Severity Reaction Status Date / Time meropenem [From Merrem] Allergy Rash/Hives Verified 10/31/21 03:11 Review of Systems ROS Statement: Those systems with pertinent positive or pertinent negative responses have been documented in the HPI. ROS Other: All systems not noted in ROS Statement are negative. Past Medical History Past Medical History: Deep Vein Thrombosis (DVT), GERD/Reflux, Hypertension, Musculoskeletal Disorder, Neurologic Disorder, Pneumonia, Seizure Disorder, Skin Disorder Additional Past Medical History / Comment(s): Pt diagnosed with MS at the age of 39 yrs, eizure/pneumonia/UTI with sepsis/respirtory failure/vented, cognitive impairment, sister states when he is feeling well he could speak a few words/nod head appropriately/give thumbs up/roll eyes but when ill is nonverbal, pt has dysphagia/NPO with peg tube, contractures, last seizure 07/2020, trigeminal neuralgia, dysarthria/anarthria/neurogenic bladder with IDC-UTIs/sepsis, mul tiple pneumonias, recent seizure-last one 07/03/20, incontinent of stool, pt has had decubitus ulcer coccyx-sister unsure of skin condition at this time, past anemia r/t heparin/epistaxiis which involved nasal packing/transfusions, DVT bilateral arms, hypoxia, oxygen at 2L/NC, L femoral head fracture History of Any Multi-Drug Resistant Organisms: ESBL, MRSA Date of last positivie culture/infection: 03/09/21-MRSA; 11/23/19 ESBL-E.coli MDRO Source:: Abdomen-Peg site MRSA; Urine -ESBL Past Surgical History: Tonsillectomy Additional Past Surgical History / Comment(s): Gastrostomy, peg tube, I&D coccyx decubitius, bronchoscopy, bilateral lasik eye surgery. Past Anesthesia/Blood Transfusion Reactions: No Reported Reaction Additional Past Anesthesia/Blood Transfusion Reaction / Comment(s): Pt has received blood in past without reaction. Past Psychological History: Depression Smoking Status: Never smoker Past Alcohol Use History: None Reported Past Drug Use History: None Reported - Past Family History Father Family Medical History: Myocardial Infarction ([place]) Mother Family Medical History: Hypertension, Myocardial Infarction ([place]) Additional Family Medical History / Comment(s): Mother of a [place] at the age of 73 yrs. General Exam General appearance: in no apparent distress, lethargic Head exam: Present: atraumatic, normocephalic ENT exam: Present: mucous membranes dry Respiratory exam: Present: rhonchi. Absent: respiratory distress Cardiovascular Exam: Present: regular rate, normal rhythm GI/Abdominal exam: Present: soft, distended. Absent: tenderness, guarding Neurological exam: Absent: oriented X3 Skin exam: Present: warm, dry Course Vital Signs 10/31/21 10/31/21 03:11 03:24 Temperature 99.6 F Pulse Rate 83 Respiratory 26 H 26 H Rate Blood Pressure 155/88 O2 Sat by Pulse 96 Oximetry EKG Findings - EKG Comments: EKG Findings:: EKG: Normal sinus rhythm, rate of 82, VA interval 152, QRS duration 80, QTC [address] segment elevation. Medical Decision Making - Medical Decision Making 61-year-old male presenting for evaluation of low-grade fever and cough and dyspnea. Patient does have bilateral rhonchi, likely a component of transmitted upper airway chest x-ray has a stable left lower lobe infiltrate or atelectasis, no large consolidated pneumonia. Coronavirus testing is negative. He has leukocytosis of 14. He is not acidotic. He has normal electrolytes, normal kidney function. Urinalysis is likely contaminated but culture will be obtained. He started on Levaquin. At this point he is stable to return to the senior living he will be prescribed course of oral antibiotics. - Lab Data Result diagrams: 10/31/21 04:05 10/31/21 04:05 Lab Results 10/31/21 10/31/21 10/31/21 Range/Units 03:35 03:35 04:05 WBC 14.7 H (3.8-10.6) k/uL RBC 4.74 (4.30-5.90) m/uL Hgb 12.1 L D (13.0-17.5) gm/dL Hct 38.2 L (39.0-53.0) % MCV 80.8 (80.0-100.0) fL MCH 25.6 (25.0-35.0) pg MCHC 31.7 (31.0-37.0) g/dL RDW 15.6 H (11.5-15.5) % Plt Count 285 (150-450) k/uL MPV 8.7 Neutrophils % 79 % Lymphocytes % 8 % Monocytes % 7 % Eosinophils % 6 % Basophils % 0 % Neutrophils # 11.6 H (1.3-7.7) k/uL Lymphocytes # 1.1 (1.0-4.8) k/uL Monocytes # 1.0 (0-1.0) k/uL Eosinophils # 0.9 H (0-0.7) k/uL Basophils # 0.0 (0-0.2) k/uL Hypochromasia Slight Sodium (137-145) mmol/L Potassium (3.5-5.1) mmol/L Chloride (98-107) mmol/L Carbon Dioxide (22-30) mmol/L Anion Gap mmol/L BUN (9-20) mg/dL Creatinine (0.66-1.25) mg/dL Est GFR (CKD-EPI)AfAm (>60 ml/min/1.73 sqM) Est GFR (CKD-EPI)NonAf (>60 ml/min/1.73 sqM) Glucose (74-99) mg/dL Calcium (8.4-10.2) mg/dL Total Bilirubin (0.2-1.3) mg/dL AST (17-59) U/L ALT (4-49) U/L Alkaline Phosphatase (38-126) U/L Total Protein (6.3-8.2) g/dL Albumin (3.5-5.0) g/dL Urine Color Yellow Urine Appearance Turbid (Clear) Urine pH 7.0 (5.0-8.0) Ur Specific [place] 1.015 (1.001-1.035) Urine Protein 1+ H (Negative) Urine Glucose (UA) Negative (Negative) Urine Ketones Negative (Negative) Urine Blood Negative (Negative) Urine Nitrite Positive (Negative) Urine Bilirubin Negative (Negative) Urine Urobilinogen <2.0 (<2.0) mg/dL Ur Leukocyte Esterase Large H (Negative) Urine RBC 4 (0-5) /hpf Urine WBC 22 H (0-5) /hpf Amorphous Sediment Occasional H (None) /hpf Urine Bacteria Moderate H (None) /hpf Hyaline Casts 7 H (0-2) /lpf Coronavirus (PCR) Not Detected (Not Detectd) 10/31/21 Range/Units 04:05 WBC (3.8-10.6) k/uL RBC (4.30-5.90) m/uL Hgb (13.0-17.5) gm/dL Hct (39.0-53.0) % MCV (80.0-100.0) fL MCH (25.0-35.0) pg MCHC (31.0-37.0) g/dL RDW (11.5-15.5) % Plt Count (150-450) k/uL MPV Neutrophils % % Lymphocytes % % Monocytes % % Eosinophils % % Basophils % % Neutrophils # (1.3-7.7) k/uL Lymphocytes # (1.0-4.8) k/uL Monocytes # (0-1.0) k/uL Eosinophils # (0-0.7) k/uL Basophils # (0-0.2) k/uL Hypochromasia Sodium 133 L (137-145) mmol/L Potassium 4.4 (3.5-5.1) mmol/L Chloride 102 (98-107) mmol/L Carbon Dioxide 26 (22-30) mmol/L Anion Gap 5 mmol/L BUN 13 (9-20) mg/dL Creatinine 0.66 (0.66-1.25) mg/dL Est GFR (CKD-EPI)AfAm >90 (>60 ml/min/1.73 sqM) Est GFR (CKD-EPI)NonAf >90 (>60 ml/min/1.73 sqM) Glucose 105 H (74-99) mg/dL Calcium 8.5 (8.4-10.2) mg/dL Total Bilirubin 0.3 (0.2-1.3) mg/dL AST 34 (17-59) U/L ALT 40 (4-49) U/L Alkaline Phosphatase 118 (38-126) U/L Total Protein 6.4 (6.3-8.2) g/dL Albumin 3.1 L (3.5-5.0) g/dL Urine Color Urine Appearance (Clear) Urine pH (5.0-8.0) Ur Specific Savage (1.001-1.035) Urine Protein (Negative) Urine Glucose (UA) (Negative) Urine Ketones (Negative) Urine Blood (Negative) Urine Nitrite (Negative) Urine Bilirubin (Negative) Urine Urobilinogen (<2.0) mg/dL Ur Leukocyte Esterase (Negative) Urine RBC (0-5) /hpf Urine WBC (0-5) /hpf Amorphous Sediment (None) /hpf Urine Bacteria (None) /hpf Hyaline Casts (0-2) /lpf Coronavirus (PCR) (Not Detectd) Disposition Clinical Impression: Pneumonia, UTI (urinary tract infection) due to urinary indwelling catheter Disposition: HOME SELF-CARE Condition: Fair Instructions (If sedation given, give patient instructions): Bacterial Pneumonia (ED) Prescriptions: Levofloxacin [Levaquin] 500 mg PO DAILY 7 Days #7 tab Is patient prescribed a controlled substance at d/c from ED?: No Referrals: Matteo Hernandez MD [Primary Care Provider] - 1-2 days Time of Disposition: 04:54
[2021-10-31 04:13] LABS: Amorphous Sediment,Urine Occasional /hpf; Appearance,Urine Turbid (Clear); Bacteria,Urine Moderate /hpf; Bilirubin,Urine Negative (Negative); Blood,Urine Negative (Negative); Color,Urine Yellow; Glucose,Urine (UA) Negative (Negative); Hyaline Casts,Urine 7 /lpf (0-2); Ketones,Urine Negative (Negative); Leukocyte Esterase,Urine Large (Negative); Nitrite,Urine Positive (Negative); Protein,Urine 1+ (Negative); RBC,Urine 4 /hpf (0-5); Specific Gravity,Urine 1.015 (1.001-1.035); Urobilinogen,Urine <2.0 mg/dL (<2.0); WBC,Urine 22 /hpf (0-5)
[2021-10-31 04:22] LABS: Basophils % (A) 0 %; Eosinophils # (A) 0.9 k/uL (0-0.7); Eosinophils % (A) 6 %; HCT 38.2 % (39.0-53.0); Hypochromasia Slight; Lymphocytes # (A) 1.1 k/uL (1.0-4.8); Lymphocytes % (A) 8 %; MCH 25.6 pg (25.0-35.0); MCHC 31.7 g/dL (31.0-37.0); MCV 80.8 fL (80.0-100.0); Mean Platelet Volume 8.7; Monocytes % (A) 7 %; Neutrophils # (A) 11.6 k/uL (1.3-7.7); Neutrophils % (A) 79 %; Platelet Count 285 k/uL (150-450); RBC 4.74 m/uL (4.30-5.90); RDW 15.6 % (11.5-15.5); WBC 14.7 k/uL (3.8-10.6)
[2021-10-31 04:35] LABS: ALT 40 U/L (4-49); AST 34 U/L (17-59); African American GFR (CKD) >90 (>60 ml/min/1.73 sqM); Albumin 3.1 g/dL (3.5-5.0); Alkaline Phosphatase 118 U/L (38-126); Anion Gap 5 mmol/L; Blood Urea Nitrogen 13 mg/dL (9-20); Calcium 8.5 mg/dL (8.4-10.2); Carbon Dioxide 26 mmol/L (22-30); Chloride 102 mmol/L (98-107); Glucose 105 mg/dL (74-99); Non-African American GFR(CKD) >90 (>60 ml/min/1.73 sqM); Potassium 4.4 mmol/L (3.5-5.1); Sodium 133 mmol/L (137-145); Total Bilirubin 0.3 mg/dL (0.2-1.3); Total Protein 6.4 g/dL (6.3-8.2)
[2021-10-31 04:39] LABS: HGB 12.1 gm/dL (13.0-17.5)
[2021-10-31] MEDS ORDERED: LEVOFLOXACIN 500MG-D5W PMX 500 MG in DEXTROSE/WATER 1 100ML.BAG IVPB STA (04:51)
[2021-10-31 04:52] VITALS: BP 140/82; RESP 23; TEMP 98.9
== END 2021-10-31 06:29 | disposition home or self-care (01) ==
LOC: EC 03:10
DX: J18.9 Pneumonia, unspecified organism (principal); N39.0 Urinary tract infection, site not specified; T83.098A Other mechanical complication of other urinary catheter, initial encounter; Z20.822 Contact with and (suspected) exposure to COVID-19; I10 Essential (primary) hypertension; K21.9 Gastro-esophageal reflux disease without esophagitis; G40.909 Epilepsy, unspecified, not intractable, without status epilepticus; F32.A Depression, unspecified; Z79.82 Long term (current) use of aspirin; Z79.51 Long term (current) use of inhaled steroids; Z79.899 Other long term (current) drug therapy
CPT/HCPCS: 36415; 93005; 80053; 85025; 81001; 87086; 87635; 71045; 99284; 96365; J1956

== ENCOUNTER 2021-12-02 05:13 | Emergency (ER) | payer MEDICARE, OTHER ==
--- NOTE | 2021-12-02 06:21 | ED ---
Abdominal Pain HPI - General Chief Complaint: Abdominal Pain Stated Complaint: Abdominal Distension Time Seen by Provider: 12/02/21 05:57 Source: EMS, RN notes reviewed, old records reviewed Mode of arrival: EMS Limitations: altered mental status - History of Present Illness Initial Comments: This is a 61-year-old male presents emergency Department via EMS sent over from senior care for complaints of distended abdomen. Patient has a history of MS, nonverbal nonambulatory. Information is very limited. Patient does have a PEG tube, no other reports of abdominal surgeries. It is unclear if he is having any recent constipation or diarrhea no reported fever per staff no reported vomiting - Related Data Home Medications Medication Instructions Recorded Confirmed Oxybutynin Chloride [Ditropan Oral 5 mg PEG/G-TUBE TID@0600,1400,2200 09/08/19 08/28/21 Soln] Ipratropium-Albuterol Nebulize 3 ml INHALATION RT-Q6H PRN 12/16/19 08/28/21 [Duoneb 0.5 mg-3 mg/3 ml Soln] Baclofen [Lioresal] 10 mg PEG/G-TUBE TID@0600,1400,2200 07/16/20 08/28/21 Scopolamine [Scopolamine 1 MG/72 1 patch TRANSDERM Q72H 09/07/20 08/28/21 HR patch] Aspirin 81 mg PEG/G-TUBE DAILY@0900 11/27/20 08/28/21 Cranberry Fruit Extract [Cranberry] 500 mg PEG/G-TUBE DAILY@0911/27/20 08/28/21 amantadine HCL [Amantadine] 100 mg PEG/G-TUBE DAILY@0911/27/20 08/28/21 Famotidine [Pepcid] 20 mg PEG/G-TUBE HS 03/07/21 08/28/21 Lactulose 20 gm PEG/G-TUBE BID@0900,2100 03/07/21 08/28/21 Magnesium Hydroxide [Milk of 7,200 mg PEG/G-TUBE Q72H PRN 03/07/21 08/28/21 Magnesia Concentrate] Acetaminophen Tab [Tylenol] 650 mg PEG/G-TUBE Q6H PRN MDD 06/13/21 08/28/21 3GM/24HR Metoprolol Tartrate [Lopressor] 25 mg PEG/G-TUBE Q12HR 06/13/21 08/28/21 Metoprolol Tartrate [Lopressor] 50 mg PEG/G-TUBE Q12HR 06/13/21 08/28/21 Cholecalciferol [Vitamin D3 (25 25 mcg PEG/G-TUBE DAILY 07/02/21 08/28/21 Mcg = 1000 Iu)] carBAMazepine [carBAMazepine Oral 200 mg PEG/G-TUBE BID@0900,2100 07/02/21 08/28/21 Susp] Sennosides [Senna] 8.6 mg PEG/G-TUBE HS 08/28/21 08/28/21 Previous Rx's Medication Instructions Recorded Lacosamide [Vimpat] 150 mg PEG/G-TUBE BID@0900,2100 #6 07/08/21 tab Levofloxacin [Levaquin] 500 mg PO DAILY 7 Days #7 tab 10/31/21 Cephalexin [Keflex Susp] 500 mg PEG/G-TUBE Q8HR #300 ml 12/02/21 Allergies Allergy/AdvReac Type Severity Reaction Status Date / Time meropenem [From Merrem] Allergy Rash/Hives Verified 12/02/21 08:29 Review of Systems ROS Statement: Those systems with pertinent positive or pertinent negative responses have been documented in the HPI. ROS Other: All systems not noted in ROS Statement are negative. Past Medical History Past Medical History: Deep Vein Thrombosis (DVT), GERD/Reflux, Hypertension, Musculoskeletal Disorder, Neurologic Disorder, Pneumonia, Seizure Disorder, Skin Disorder Additional Past Medical History / Comment(s): Pt diagnosed with MS at the age of 39 yrs, eizure/pneumonia/UTI with sepsis/respirtory failure/vented, cognitive impairment, sister states when he is feeling well he could speak a few words/nod head appropriately/give thumbs up/roll eyes but when ill is nonverbal, pt has dysphagia/NPO with peg tube, contractures, last seizure 07/2020, trigeminal neuralgia, dysarthria/anarthria/neurogenic bladder with IDC-UTIs/sepsis, multiple pneumonias, recent seizure-last one 07/03/20, incontinent of stool, pt has had decubitus ulcer coccyx-sister unsure of skin condition at this time, past anemia r/t heparin/epistaxiis which involved nasal packing/transfusions, DVT bilateral arms, hypoxia, oxygen at 2L/NC, L femoral head fracture History of Any Multi-Drug Resistant Organisms: ESBL, MRSA, Other MDRO Date of last positivie culture/infection: 03/09/21-MRSA; 11/23/19 ESBL-E.coli MDRO Source:: Abdomen-Peg site MRSA; Urine -ESBL Past Surgical History: Tonsillectomy Additional Past Surgical History / Comment(s): Gastrostomy, peg tube, I&D coccyx decubitius, bronchoscopy, bilateral lasik eye surgery. Past Anesthesia/Blood Transfusion Reactions: No Reported Reaction Additional Past Anesthesia/Blood Transfusion Reaction / Comment(s): Pt has re ceived blood in past without reaction. Past Psychological History: Depression Smoking Status: Never smoker Past Alcohol Use History: None Reported Past Drug Use History: None Reported - Past Family History Father Family Medical History: Myocardial Infarction ([place]) Mother Family Medical History: Hypertension, Myocardial Infarction ([place]) Additional Family Medical History / Comment(s): Mother of a [place] at the age of 73 yrs. General Exam Limitations: altered mental status General appearance: alert, in no apparent distress Head exam: Present: atraumatic, normocephalic, normal inspection Respiratory exam: Present: normal lung sounds bilaterally. Absent: respiratory distress, wheezes, rales, rhonchi, stridor Cardiovascular Exam: Present: regular rate, normal rhythm, normal heart sounds. Absent: systolic murmur, diastolic murmur, rubs, gallop, clicks GI/Abdominal exam: Present: soft, distended, normal bowel sounds. Absent: tenderness, guarding, rebound, rigid Neurological exam: Present: alert Skin exam: Present: warm, dry, intact, normal color. Absent: rash Course Vital Signs 12/02/21 12/02/21 05:20 06:33 Temperature 97.6 F Pulse Rate 72 65 Respiratory 18 18 Rate Blood Pressure 123/75 140/80 O2 Sat by Pulse 97 98 Oximetry Medical Decision Making - Medical Decision Making 61-year-old presented from abdominal distention. CT shows evidence of constipation patient was given enema, patient does have evidence of urinary tract infection was given Rocephin we discharged on oral antibiotics return parameters were discussed. - Lab Data Result diagrams: 12/02/21 06:30 12/02/21 06:30 Lab Results 12/02/21 12/02/21 12/02/21 Range/Units 06:30 06:30 06:30 WBC 10.5 (3.8-10.6) k/uL RBC 4.88 (4.30-5.90) m/uL Hgb 12.3 L (13.0-17.5) gm/dL Hct 39.9 (39.0-53.0) % MCV 81.8 (80.0-100.0) fL MCH 25.2 (25.0-35.0) pg MCHC 30.8 L (31.0-37.0) g/dL RDW 15.9 H (11.5-15.5) % Plt Count 322 (150-450) k/uL MPV 9.5 Neutrophils % 76 % Lymphocytes % 9 % Monocytes % 8 % Eosinophils % 5 % Basophils % 0 % Neutrophils # 8.0 H (1.3-7.7) k/uL Lymphocytes # 1.0 (1.0-4.8) k/uL Monocytes # 0.8 (0-1.0) k/uL Eosinophils # 0.5 (0-0.7) k/uL Basophils # 0.0 (0-0.2) k/uL Hypochromasia Moderate Sodium 134 L (137-145) mmol/L Potassium 4.9 (3.5-5.1) mmol/L Chloride 105 (98-107) mmol/L Carbon Dioxide 22 (22-30) mmol/L Anion Gap 7 mmol/L BUN 14 (9-20) mg/dL Creatinine 0.72 (0.66-1.25) mg/dL Est GFR (CKD-EPI)AfAm >90 (>60 ml/min/1.73 sqM) Est GFR (CKD-EPI)NonAf >90 (>60 ml/min/1.73 sqM) Glucose 103 H (74-99) mg/dL Plasma Lactic Acid Taurus 1.3 (0.7-2.0) mmol/L Calcium 8.4 (8.4-10.2) mg/dL Total Bilirubin 0.5 (0.2-1.3) mg/dL AST 42 (17-59) U/L ALT 28 (4-49) U/L Alkaline Phosphatase 81 (38-126) U/L Total Protein 6.8 (6.3-8.2) g/dL Albumin 3.3 L (3.5-5.0) g/dL Amylase 64 (30-110) U/L Lipase 190 (23-300) U/L Urine Color Urine Appearance (Clear) Urine pH (5.0-8.0) Ur Specific [place] (1.001-1.035) Urine Protein (Negative) Urine Glucose (UA) (Negative) Urine Ketones (Negative) Urine Blood (Negative) Urine Nitrite (Negative) Urine Bilirubin (Negative) Urine Urobilinogen (<2.0) mg/dL Ur Leukocyte Esterase (Negative) Urine RBC (0-5) /hpf Urine WBC (0-5) /hpf Ur Squamous Epith Cells (0-4) /hpf Amorphous Sediment (None) /hpf Urine Bacteria (None) /hpf 12/02/21 Range/Units 06:33 WBC (3.8-10.6) k/uL RBC (4.30-5.90) m/uL Hgb (13.0-17.5) gm/dL Hct (39.0-53.0) % MCV (80.0-100.0) fL MCH (25.0-35.0) pg MCHC (31.0-37.0) g/dL RDW (11.5-15.5) % Plt Count (150-450) k/uL MPV Neutrophils % % Lymphocytes % % Monocytes % % Eosinophils % % Basophils % % Neutrophils # (1.3-7.7) k/uL Lymphocytes # (1.0-4.8) k/uL Monocytes # (0-1.0) k/uL Eosinophils # (0-0.7) k/uL Basophils # (0-0.2) k/uL Hypochromasia Sodium (137-145) mmol/L Potassium (3.5-5.1) mmol/L Chloride (98-107) mmol/L Carbon Dioxide (22-30) mmol/L Anion Gap mmol/L BUN (9-20) mg/dL Creatinine (0.66-1.25) mg/dL Est GFR (CKD-EPI)AfAm (>60 ml/min/1.73 sqM) Est GFR (CKD-EPI)NonAf (>60 ml/min/1.73 sqM) Glucose (74-99) mg/dL Plasma Lactic Acid Taurus (0.7-2.0) mmol/L Calcium (8.4-10.2) mg/dL Total Bilirubin (0.2-1.3) mg/dL AST (17-59) U/L ALT (4-49) U/L Alkaline Phosphatase (38-126) U/L Total Protein (6.3-8.2) g/dL Albumin (3.5-5.0) g/dL Amylase (30-110) U/L Lipase (23-300) U/L Urine Color Yellow Urine Appearance Cloudy (Clear) Urine pH 6.5 (5.0-8.0) Ur Specific [place] 1.020 (1.001-1.035) Urine Protein Trace (Negative) Urine Glucose (UA) Negative (Negative) Urine Ketones Trace (Negative) Urine Blood Negative (Negative) Urine Nitrite Positive (Negative) Urine Bilirubin Negative (Negative) Urine Urobilinogen <2.0 (<2.0) mg/dL Ur Leukocyte Esterase Moderate (Negative) Urine RBC 1 (0-5) /hpf Urine WBC 12 H (0-5) /hpf Ur Squamous Epith Cells 2 (0-4) /hpf Amorphous Sediment Many H (None) /hpf Urine Bacteria Many H (None) /hpf Disposition Clinical Impression: UTI (urinary tract infection), Constipation, Abdominal distention Disposition: HOME SELF-CARE Condition: Stable Instructions (If sedation given, give patient instructions): Urinary Tract Infection in Men (ED) Additional Instructions: Please return to the Emergency Department if symptoms worsen or any other concerns. Prescriptions: Cephalexin [Keflex Susp] 500 mg PEG/G-TUBE Q8HR #300 ml Is patient prescribed a controlled substance at d/c from ED?: No Referrals: Matteo Hernandez MD [Primary Care Provider] - 1-2 days Time of Disposition: 10:02
[2021-12-02 06:54] LABS: Basophils % (A) 0 %; Eosinophils # (A) 0.5 k/uL (0-0.7); Eosinophils % (A) 5 %; HCT 39.9 % (39.0-53.0); HGB 12.3 gm/dL (13.0-17.5); Hypochromasia Moderate; Lymphocytes % (A) 9 %; MCH 25.2 pg (25.0-35.0); MCHC 30.8 g/dL (31.0-37.0); MCV 81.8 fL (80.0-100.0); Mean Platelet Volume 9.5; Monocytes # (A) 0.8 k/uL (0-1.0); Monocytes % (A) 8 %; Neutrophils % (A) 76 %; Platelet Count 322 k/uL (150-450); RBC 4.88 m/uL (4.30-5.90); RDW 15.9 % (11.5-15.5); WBC 10.5 k/uL (3.8-10.6)
[2021-12-02 06:57] LABS: ALT 28 U/L (4-49); AST 42 U/L (17-59); African American GFR (CKD) >90 (>60 ml/min/1.73 sqM); Albumin 3.3 g/dL (3.5-5.0); Alkaline Phosphatase 81 U/L (38-126); Amylase 64 U/L (30-110); Anion Gap 7 mmol/L; Blood Urea Nitrogen 14 mg/dL (9-20); Calcium 8.4 mg/dL (8.4-10.2); Carbon Dioxide 22 mmol/L (22-30); Chloride 105 mmol/L (98-107); Glucose 103 mg/dL (74-99); Lipase 190 U/L (23-300); Non-African American GFR(CKD) >90 (>60 ml/min/1.73 sqM); Sodium 134 mmol/L (137-145); Total Bilirubin 0.5 mg/dL (0.2-1.3); Total Protein 6.8 g/dL (6.3-8.2)
[2021-12-02 06:58] LABS: Potassium 4.9 mmol/L (3.5-5.1)
--- NOTE | 2021-12-02 07:50 | CT ---
EXAMINATION TYPE: CT abdomen pelvis w con DATE OF EXAM: 12/02/2021 COMPARISON: 12/01/2020 HISTORY: Abdominal pain CONTRAST: CT scan of the abdomen and pelvis is performed without Oral Contrast and with IV Contrast, patient in jected with 100 mL of Isovue 300. FINDINGS: LUNG BASES-: No visible nodule. No infiltrate. LIVER/GB: No calcified gallstones. No space occupying hepatic lesion. Biliary tree is of normal ca liber. PANCREAS: No inflammation. No distinct mass. SPLEEN: No splenic enlargement. No lesion seen. ADRENALS: No nodule. No thickening. KIDNEYS/BLADDER: No hydronephrosis. No nephrolithiasis. No distinct solid renal mass. Renal cystic changes upper pole right kidney. Stein balloon catheter is in place. BOWEL: The appendix is not clearly visualized. Rectal fecal impaction is redemonstrated. There is foc al fat with surrounding inflammatory change distal descending colon which could reflect epiploic appe ndagitis. Gastrostomy tube is in place. Normal bowel caliber. GENITAL ORGANS: No gross abnormality. LYMPH NODES: No greater than 1cm abdominal or pelvic lymph nodes are appreciated. AORTA: No significant abnormality. OSSEOUS STRUCTURES: No significant abnormality is seen. OTHER: No significant additional abnormality is seen. IMPRESSION: 1. There is focal fat with surrounding inflammatory change distal descending colon which could reflec t epiploic appendagitis. Correlate clinically. 2. Rectal fecal impaction.
[2021-12-02 09:47] LABS: Appearance,Urine Cloudy (Clear); Bilirubin,Urine Negative (Negative); Color,Urine Yellow; Glucose,Urine (UA) Negative (Negative); Ketones,Urine Trace (Negative); PH, Urine 6.5 (5.0-8.0); Protein,Urine Trace (Negative)
[2021-12-02 09:48] LABS: Blood,Urine Negative (Negative); Leukocyte Esterase,Urine Moderate (Negative); Nitrite,Urine Positive (Negative); Urobilinogen,Urine <2.0 mg/dL (<2.0)
[2021-12-02 09:49] LABS: RBC,Urine 1 /hpf (0-5); WBC,Urine 12 /hpf (0-5)
[2021-12-02 09:50] LABS: Amorphous Sediment,Urine Many /hpf; Squamous Epithelial Cell,Urine 2 /hpf (0-4)
[2021-12-02 09:52] LABS: Bacteria,Urine Many /hpf
[2021-12-02] MEDS ORDERED: cefTRIAXone IN SWFI 1,000 MG/10 ML SYRINGE IVP STA (09:58)
[2021-12-02 12:02] VITALS: BP 126/75; PULSE 78; RESP 16; TEMP 97.7
== END 2021-12-02 11:59 | disposition home or self-care (01) ==
LOC: EC 05:13
DX: K59.00 Constipation, unspecified (principal); N39.0 Urinary tract infection, site not specified; K21.9 Gastro-esophageal reflux disease without esophagitis; I10 Essential (primary) hypertension; F32.A Depression, unspecified; Z79.82 Long term (current) use of aspirin; Z88.1 Allergy status to other antibiotic agents; Z86.718 Personal history of other venous thrombosis and embolism; Z87.440 Personal history of urinary (tract) infections
CPT/HCPCS: 99284; 96374; 36415; 80053; 82150; 83605; 83690; 85025; 81001; 87086; 87077; 87186; 74177; J0696; Q9967

== ENCOUNTER 2021-12-22 12:48 | Inpatient (IN) | payer MEDICARE, OTHER ==
[2021-12-22 15:27] LABS: Anisocytosis Slight; Basophils % (A) 0 %; Eosinophils # (A) 0.8 k/uL (0-0.7); Eosinophils % (A) 10 %; HCT 40.4 % (39.0-53.0); HGB 12.5 gm/dL (13.0-17.5); Hypochromasia Marked; Lymphocytes # (A) 1.5 k/uL (1.0-4.8); Lymphocytes % (A) 20 %; MCH 25.1 pg (25.0-35.0); MCV 80.9 fL (80.0-100.0); Mean Platelet Volume 7.8; Monocytes # (A) 0.7 k/uL (0-1.0); Monocytes % (A) 9 %; Neutrophils # (A) 4.5 k/uL (1.3-7.7); Neutrophils % (A) 59 %; Platelet Count 347 k/uL (150-450); RBC 4.99 m/uL (4.30-5.90); RDW 16.2 % (11.5-15.5); WBC 7.6 k/uL (3.8-10.6)
[2021-12-22 15:38] LABS: ALT 38 U/L (4-49); AST 31 U/L (17-59); African American GFR (CKD) >90 (>60 ml/min/1.73 sqM); Albumin 3.9 g/dL (3.5-5.0); Alkaline Phosphatase 105 U/L (38-126); Anion Gap 9 mmol/L; Blood Urea Nitrogen 19 mg/dL (9-20); Calcium 8.7 mg/dL (8.4-10.2); Carbon Dioxide 24 mmol/L (22-30); Chloride 102 mmol/L (98-107); Glucose 96 mg/dL (74-99); Non-African American GFR(CKD) >90 (>60 ml/min/1.73 sqM); Potassium 4.7 mmol/L (3.5-5.1); Sodium 135 mmol/L (137-145); Total Bilirubin 0.4 mg/dL (0.2-1.3); Total Protein 7.3 g/dL (6.3-8.2)
--- NOTE | 2021-12-22 15:39 | XR ---
EXAMINATION TYPE: XR chest 1V DATE OF EXAM: 12/22/2021 COMPARISON: 10/31/2021 INDICATION: Difficulty breathing, dyspnea TECHNIQUE: Single frontal view of the chest is obtained. FINDINGS: The heart size is normal. The pulmonary vasculature is normal. Linear opacities are at the right base. Atelectasis and pneumonia could be considered. IMPRESSION: 1. Mild linear opacities right lung base. Correlate for atelectasis and pneumonia. Follow-up can be p erformed as clinically indicated.
--- NOTE | 2021-12-22 16:12 | CT ---
EXAMINATION TYPE: CT abdomen pelvis wo con DATE OF EXAM: 12/22/2021 COMPARISON: CT dated 12/02/2021 HISTORY: abdominal distention CT DLP: 975.1 mGycm Automated exposure control for dose reduction was used. TECHNIQUE: Helical acquisition of images was performed from the lung bases through the pelvis. FINDINGS: Suboptimal CT scan with artifactual images. LUNG BASES: Grossly unremarkable. LIVER/GB: The hepatic dome is not included in the scan. Suspected minimal portal venous gas is seen i n the inferior aspect of the right hepatic lobe with suspected gas seen in the central portion of the left hepatic lobe, possibly within hepatic vessels. This is suboptimally assessed due to artifacts a nd lack of IV contrast administration. No radiodense gallbladder calculi or gross signs of acute chol ecystitis. PANCREAS: No significant abnormality is seen. SPLEEN: No significant abnormality is seen. ADRENALS: No significant abnormality is seen. KIDNEYS: Relatively small left kidney. Suspected few right renal cysts. FREE AIR: No free air is visualized RETROPERITONEAL ADENOPATHY: None visualized REPRODUCTIVE ORGANS: Small prostate. Unremarkable seminal vesicles. URINARY BLADDER: Collapsed over a Stein catheter. PELVIC ADENOPATHY: None visualized. OSSEOUS STRUCTURES: Chronic displaced fracture of the left femoral head/neck with severe surrounding soft tissue swelling, heterotopic bone formation and bone deformity. Healed fracture of the right fe moral neck with surrounding soft tissue thickening and heterotopic bone formation. Chronic hip septic arthritis cannot be excluded bilaterally. Diffuse osteopenia. BOWEL: Gastrostomy tube. Otherwise unremarkable Nondistended stomach, duodenum and small bowel. Mild wall thickening of the inferior aspect of the rectum with marked distention of the rectosigmoid junc tion filled with gas and fecal material associated with wall thickening. Stercoral colitis cannot be excluded. Moderate gaseous distention of the remainder of the sigmoid colon with moderate fecal loadi ng of the remainder of the colon. There is apparent pneumatosis of the superior aspect of the ascendi ng colon with adjacent gas seen in the adjacent mesenteric vessels, this could represent benign pneum atosis however focal colonic ischemia cannot be excluded. OTHER: Arterial atherosclerotic calcifications. No sizable ascites. Small fat-containing umbilical he rnia. IMPRESSION: 1. Suspected minimal intrahepatic portal venous gas with suspected focal pneumatosis of the superior aspect of the ascending colon, associated with minimal gas seen in the adjacent mesenteric vessels as described above. This could represent benign pneumatosis however focal colonic ischemia cannot be ex cluded. No free peritoneal air. 2. Wall thickening of the inferior aspect of the rectum with marked distention of the rectosigmoid ju nction filled with gas and fecal material, associated with mild wall thickening, Stercoral colitis ca nnot be excluded. Recommend clinical correlation, surgical consultation and further workup. Other fin dings as described above.
[2021-12-22] MEDS ORDERED: PIPERACILLIN-TAZOBACTAM 3.375 GM in SODIUM CHLORIDE 0.9% 100 ML IVPB STA (16:52)
[2021-12-22] MEDS ORDERED: NALOXONE 0.4 MG/ML 1 ML VIAL IV PRN (17:48)
[2021-12-22] MEDS ORDERED: HYDROmorphone 0.5 MG/0.5 ML SYRINGE IVP PRN (17:48)
--- NOTE | 2021-12-22 17:53 | ED ---
General Adult HPI - General Chief complaint: Recheck/Abnormal Lab/Rx Stated complaint: Male UG Time Seen by Provider: 12/22/21 13:08 Source: family, EMS, RN notes reviewed, old records reviewed Mode of arrival: EMS Limitations: altered mental status, physical limitation - History of Present Illness Initial comments: Patient presenting from snf for abdominal distention and requests to obtain CT imaging as well as history of recurrent pneumonia. Patient afebrile with stable vital signs upon arrival. Transported by paramedics. Patient is no nverbal and unable to contribute to the history. - Related Data Home Medications Medication Instructions Recorded Confirmed Oxybutynin Chloride [Ditropan Oral 5 mg PEG/G-TUBE Q8H 09/08/19 12/22/21 Soln] Ipratropium-Albuterol Nebulize 3 ml INHALATION RT-Q6H PRN 12/16/19 12/22/21 [Duoneb 0.5 mg-3 mg/3 ml Soln] Baclofen [Lioresal] 10 mg PEG/G-TUBE Q8H 07/16/20 12/22/21 Scopolamine [Scopolamine 1 MG/72 1 patch TRANSDERM Q72H 09/07/20 12/22/21 HR patch] Aspirin 81 mg PEG/G-TUBE DAILY 11/27/20 12/22/21 Cranberry Fruit Extract [Cranberry] 500 mg PEG/G-TUBE DAILY 11/27/20 12/22/21 Famotidine [Pepcid] 20 mg PEG/G-TUBE HS 03/07/21 12/22/21 Lactulose 20 gm PEG/G-TUBE TID 03/07/21 12/22/21 Magnesium Hydroxide [Milk of 7,200 mg PEG/G-TUBE Q72H PRN 03/07/21 12/22/21 Magnesia Concentrate] Acetaminophen Tab [Tylenol] 650 mg PEG/G-TUBE Q6H PRN MDD 06/13/21 12/22/21 3GM/24HR Metoprolol Tartrate [Lopressor] 25 mg PEG/G-TUBE Q12HR 06/13/21 12/22/21 Metoprolol Tartrate [Lopressor] 50 mg PEG/G-TUBE Q12HR 06/13/21 12/22/21 Cholecalciferol [Vitamin D3 (25 25 mcg PEG/G-TUBE DAILY 07/02/21 12/22/21 Mcg = 1000 Iu)] carBAMazepine [carBAMazepine Oral 200 mg PEG/G-TUBE Q12H 07/02/21 12/22/21 Susp] Sennosides [Senna] 17.2 mg PEG/G-TUBE HS 08/28/21 12/22/21 Amantadine Hcl Solution 50mg/5ml 100 mg PEG/G-TUBE DAILY 12/22/21 12/22/21 Lacosamide [Vimpat] 150 mg PEG/G-TUBE Q12H 12/22/21 12/22/21 Levofloxacin [Levaquin] 500 mg PEG/G-TUBE DAILY 12/22/21 12/22/21 Prostat 30 ml PEG/G-TUBE DAILY 12/22/21 12/22/21 guaiFENesin [Mucinex] 600 mg PEG/G-TUBE Q12H 12/22/21 12/22/21 Allergies Allergy/AdvReac Type Severity Reaction Status Date / Time meropenem [From Merrem] Allergy Rash/Hives Verified 12/22/21 13:33 Review of Systems ROS Statement: Those systems with pertinent positive or pertinent negative responses have been documented in the HPI. ROS Other: All systems not noted in ROS Statement are negative. Past Medical History Past Medical History: Deep Vein Thrombosis (DVT), GERD/Reflux, Hypertension, Musculoskeletal Disorder, Neurologic Disorder, Pneumonia, Seizure Disorder, Skin Disorder Additional Past Medical History / Comment(s): Pt diagnosed with MS at the age of 39 yrs, eizure/pneumonia/UTI with sepsis/respirtory failure/vented, cognitive impairment, sister states when he is feeling well he could speak a few words/nod head appropriately/give thumbs up/roll eyes but when ill is nonverbal, pt has dysphagia/NPO with peg tube, contractures, last seizure 07/2020, trigeminal neuralgia, dysarthria/anarthria/neurogenic bladder with IDC-UTIs/sepsis, multiple pneumonias, recent seizure-last one 07/03/20, incontinent of stool, pt has had decubitus ulcer coccyx-sister unsure of skin condition at this time, past anemia r/t heparin/epistaxiis which involved nasal packing/transfusions, DVT bilateral arms, hypoxia, oxygen at 2L/NC, L femoral head fracture History of Any Multi-Drug Resistant Organisms: ESBL, MRSA, Other MDRO Date of last positivie culture/infection: 03/09/21-MRSA; 11/23/19 ESBL-E.coli MDRO Source:: Abdomen-Peg site MRSA; Urine -ESBL Past Surgical History: Tonsillectomy Additional Past Surgical History / Comment(s): Gastrostomy, peg tube, I&D coccyx decubitius, bronchoscopy, bilateral lasik eye surgery. Past Anesthesia/Blood Transfusion Reactions: No Reported Reaction Additional Past Anesthesia/Blood Transfusion Reaction / Comment(s): Pt has received blood in past without reaction. Past Psychological History: Depression Smoking Status: Never smoker Past Alcohol Use History: None Reported Past Drug Use History: None Reported - Past Family History Father Family Medical History: Myocardial Infarction ([place]) Mother Family Medical History: Hypertension, Myocardial Infarction ([place]) Additional Family Medical History / Comment(s): Mother of a [place] at the age of 73 yrs. General Exam Limitations: altered mental status, physical limitation General appearance: alert, in no apparent distress Head exam: Present: atraumatic, normocephalic Eye exam: Present: normal appearance, PERRL ENT exam: Present: mucous membranes dry Neck exam: Present: normal inspection. Absent: tenderness Respiratory exam: Present: rhonchi. Absent: respiratory distress Cardiovascular Exam: Present: regular rate, normal rhythm GI/Abdominal exam: Present: soft, distended. Absent: tenderness, guarding, re bound Extremities exam: Present: normal inspection Neurological exam: Present: alert. Absent: oriented X3 Skin exam: Present: warm, dry, intact. Absent: cyanosis, diaphoretic Course Vital Signs 12/22/21 12/22/21 12/22/21 13:04 13:10 14:26 Temperature 98.1 F Pulse Rate 85 71 Respiratory 20 20 18 Rate Blood Pressure 132/96 141/97 O2 Sat by Pulse 98 100 Oximetry 12/22/21 12/22/21 16:01 17:31 Temperature Pulse Rate 78 Respiratory 20 18 Rate Blood Pressure 142/83 127/53 O2 Sat by Pulse 94 L 93 L Oximetry EKG Findings - EKG Comments: EKG Findings:: EKG: Sinus rhythm, baseline artifact, no ST segment elevation, rate is 79, [place] interval 151, QRS duration 84, QTC 380 Medical Decision Making - Medical Decision Making 61-year-old male with abdominal distention, history of recurrent pneumonia. Patient nonverbal and unable to contribute to history. He does have bilateral rhonchi as well as a distended abdomen which is nontender. Workup is initiated including chest x-ray which shows a linear atelectasis first pneumonia. CT performed which is is interpreted by radiology as having poor venous gas as well as intestinal pneumatosis. The patient is afebrile with a nontender abdomen. He has a normal CBC without leukocytosis. He has a normal lactic acid of 1.8 normal CMP. I did discuss CT findings with Dr. Brody covering for general surgery. She will see this patient in consultation. Patient will be admitted to Dr. Ireland. Antibiotics have been initiated as well as IV fluids and blood cultures are obtained and pending. - Lab Data Result diagrams: 12/22/21 15:04 12/22/21 15:04 Lab Results 12/22/21 12/22/21 12/22/21 Range/Units 15:04 15:04 15:04 WBC 7.6 (3.8-10.6) k/uL RBC 4.99 (4.30-5.90) m/uL Hgb 12.5 L (13.0-17.5) gm/dL Hct 40.4 (39.0-53.0) % MCV 80.9 (80.0-100.0) fL MCH 25.1 (25.0-35.0) pg MCHC 31.0 (31.0-37.0) g/dL RDW 16.2 H (11.5-15.5) % Plt Count 347 (150-450) k/uL MPV 7.8 Neutrophils % 59 % Lymphocytes % 20 % Monocytes % 9 % Eosinophils % 10 % Basophils % 0 % Neutrophils # 4.5 (1.3-7.7) k/uL Lymphocytes # 1.5 (1.0-4.8) k/uL Monocytes # 0.7 (0-1.0) k/uL Eosinophils # 0.8 H (0-0.7) k/uL Basophils # 0.0 (0-0.2) k/uL Hypochromasia Marked Anisocytosis Slight Sodium 135 L (137-145) mmol/L Potassium 4.7 (3.5-5.1) mmol/L Chloride 102 (98-107) mmol/L Carbon Dioxide 24 (22-30) mmol/L Anion Gap 9 mmol/L BUN 19 (9-20) mg/dL Creatinine 0.68 (0.66-1.25) mg/dL Est GFR (CKD-EPI)AfAm >90 (>60 ml/min/1.73 sqM) Est GFR (CKD-EPI)NonAf >90 (>60 ml/min/1.73 sqM) Glucose 96 (74-99) mg/dL Plasma Lactic Acid [place] 1.8 (0.7-2.0) mmol/L Calcium 8.7 (8.4-10.2) mg/dL Total Bilirubin 0.4 (0.2-1.3) mg/dL AST 31 (17-59) U/L ALT 38 (4-49) U/L Alkaline Phosphatase 105 (38-126) U/L Total Protein 7.3 (6.3-8.2) g/dL Albumin 3.9 (3.5-5.0) g/dL Disposition Clinical Impression: Abdominal distention, Pneumatosis intestinalis Disposition: ADMITTED IP TO THIS [facility] Condition: Stable Is patient prescribed a controlled substance at d/c from ED?: No Referrals: Matteo Hernandez MD [Primary Care Provider] - 1-2 days Decision to Admit Reason: Admit from EC Decision Date: 12/22/21 Decision Time: 17:53
[2021-12-22] MEDS: SODIUM CHLORIDE 0.9% 1,000 ML IV SCH (18:25)
[2021-12-22] MEDS ORDERED: ACETAMINOPHEN TAB 325 MG TAB PEG/G-TUBE PRN (20:13)
[2021-12-22] MEDS ORDERED: IPRATROPIUM-ALBUTEROL 3 ML NEB INHALATION PRN (20:13)
[2021-12-22] MEDS ORDERED: MAGNESIUM HYDROXIDE 2,400 MG/10 ML CUP PEG/G-TUBE PRN (20:13)
[2021-12-22] MEDS: METOPROLOL TARTRATE 25 MG TAB PEG/G-TUBE SCH (21:48)
[2021-12-22] MEDS: METOPROLOL TARTRATE 50 MG TAB PEG/G-TUBE SCH (21:48)
[2021-12-22] MEDS: FAMOTIDINE 8 MG/ML ORAL.SUSP PEG/G-TUBE SCH (21:51)
[2021-12-22] MEDS: LACOSAMIDE 150 MG TABLET PEG/G-TUBE SCH (21:51)
[2021-12-23] MEDS: PIPERACILLIN-TAZOBACTAM 3.375 GM in SODIUM CHLORIDE 0.9% 100 ML IVPB SCH ×3 (00:47→16:48)
[2021-12-23] MEDS: BACLOFEN 10 MG TAB PEG/G-TUBE SCH ×3 (00:48→16:47)
[2021-12-23] MEDS: SODIUM CHLORIDE 0.9% 1,000 ML IV SCH (08:32)
[2021-12-23] MEDS: ASPIRIN 81 MG PEG/G-TUBE SCH (09:50)
[2021-12-23] MEDS: METOPROLOL TARTRATE 50 MG TAB PEG/G-TUBE SCH ×2 (09:50→22:15)
[2021-12-23] MEDS: LACOSAMIDE 150 MG TABLET PEG/G-TUBE SCH ×2 (09:50→22:15)
[2021-12-23] MEDS: METOPROLOL TARTRATE 25 MG TAB PEG/G-TUBE SCH ×2 (09:50→22:15)
--- NOTE | 2021-12-23 11:08 | P.HPIM ---
History of Present Illness 61-year-old male history of advanced MS , multiple hospitalization with multiple infections and multiple medical problems including history of UTI and pneumonia infections before. He has indwelling Stein catheter. Patient is nonverbal at baseline so information obtained from staff and medical records. No family at bedside. As per ED notes patient sent from his half-way for abdominal distention with recommendation for CAT scan. I spoke with Dr. diamond last night, he was already discussed the case with Dr. Mike for his abdominal computed tomography scan on admission and she recommended no surgical intervention and to be admitted under medical service. This morning Patient himself is awake and alert, he has contracture in all extremities, he does not follow commands, nonverbal at baseline, does not look in distress. Stein catheter and PEG tube in place, 2 previous is on hold. As per staff patient did not have a bowel movement only use of stool. His abdomen looks mildly distended but there is no tenderness or facial he remains on superficial or deep palpation. Patient is mildly tachycardic on admission, afebrile, during the night it became slightly hypotensive 95/64 and tachycardic 138, received 1 bolus of normal saline over 500 mL and then continued on, his blood pressure this morning improved with 35/72 and heart rate 94 Labs reviewed showed normal white cell count, risks of CBC, BMP and liver enzymes are unremarkable. CT of the abdomen and pelvis without contrast showing suspect minimal intrahepatic portal venous gas with suspected occult pneumatosis of the superior aspect of the ascending colon, associated with minimal gas seen in the adjacent mesenteric vessels. This could represent benign pneumatosis however focal colonic ischemia cannot be excluded. No free peritoneal air. Also with wall thickening of the inferior aspect of the rectum with marked distention of the rectosigmoid junction. With gas and fecal material, associated with mild wall thickening, Review of Systems n/a patient is nonverbal at baseline Past Medical History Past Medical History: Deep Vein Thrombosis (DVT), GERD/Reflux, Hypertension, Musculoskeletal Disorder, Neurologic Disorder, Pneumonia, Seizure Disorder, Skin Disorder Additional Past Medical History / Comment(s): Pt diagnosed with MS at the age of 39 yrs, eizure/pneumonia/UTI with sepsis/respirtory failure/vented, cognitive impairment, sister states when he is feeling well he could speak a few words/nod head appropriately/give thumbs up/roll eyes but when ill is nonverbal, pt has dysphagia/NPO with peg tube, contractures, last seizure 07/2020, trigeminal neuralgia, dysarthria/anarthria/neurogenic bladder with IDC-UTIs/sepsis, multipl e pneumonias, recent seizure-last one 07/03/20, incontinent of stool, pt has had decubitus ulcer coccyx-sister unsure of skin condition at this time, past anemia r/t heparin/epistaxiis which involved nasal packing/transfusions, DVT bilateral arms, hypoxia, oxygen at 2L/NC, L femoral head fracture History of Any Multi-Drug Resistant Organisms: ESBL, MRSA, Other MDRO Date of last positivie culture/infection: 03/09/21-MRSA; 11/23/19 ESBL-E.coli MDRO Source:: Abdomen-Peg site MRSA; Urine -ESBL Past Surgical History: Tonsillectomy Additional Past Surgical History / Comment(s): Gastrostomy, peg tube, I&D coccyx decubitius, bronchoscopy, bilateral lasik eye surgery. Past Anesthesia/Blood Transfusion Reactions: No Reported Reaction Additional Past Anesthesia/Blood Transfusion Reaction / Comment(s): Pt has received blood in past without reaction. Past Psychological History: Depression Additional Psychological History / Comment(s): Pt resides at [facility]. He normally is in bed/amita lift to wheelchair. Has peg/IDC Smoking Status: Never smoker Past Alcohol Use History: None Reported Past Drug Use History: None Reported - Past Family History Father Family Medical History: Myocardial Infarction ([place]) Mother Family Medical History: Hypertension, Myocardial Infarction ([place]) Additional Family Medical History / Comment(s): Mother of a [place] at the age of 73 yrs. Medications and Allergies Home Medications Medication Instructions Recorded Confirmed Type Oxybutynin Chloride [Ditropan Oral 5 mg PEG/G-TUBE Q8H 09/08/19 12/22/21 History Soln] Ipratropium-Albuterol Nebulize 3 ml INHALATION RT-Q6H PRN 12/16/19 12/22/21 History [Duoneb 0.5 mg-3 mg/3 ml Soln] Baclofen [Lioresal] 10 mg PEG/G-TUBE Q8H 07/16/20 12/22/21 History Scopolamine [Scopolamine 1 MG/72 1 patch TRANSDERM Q72H 09/07/20 12/22/21 History HR patch] Aspirin 81 mg PEG/G-TUBE DAILY 11/27/20 12/22/21 History Cranberry Fruit Extract [Cranberry] 500 mg PEG/G-TUBE DAILY 11/27/20 12/22/21 History Famotidine [Pepcid] 20 mg PEG/G-TUBE HS 03/07/21 12/22/21 History Lactulose 20 gm PEG/G-TUBE TID 03/07/21 12/22/21 History Magnesium Hydroxide [Milk of 7,200 mg PEG/G-TUBE Q72H PRN 03/07/21 12/22/21 History Magnesia Concentrate] Acetaminophen Tab [Tylenol] 650 mg PEG/G-TUBE Q6H PRN MDD 06/13/21 12/22/21 History 3GM/24HR Metoprolol Tartrate [Lopressor] 25 mg PEG/G-TUBE Q12HR 06/13/21 12/22/21 History Metoprolol Tartrate [Lopressor] 50 mg PEG/G-TUBE Q12HR 06/13/21 12/22/21 History Cholecalciferol [Vitamin D3 (25 25 mcg PEG/G-TUBE DAILY 07/02/21 12/22/21 History Mcg = 1000 Iu)] carBAMazepine [carBAMazepine Oral 200 mg PEG/G-TUBE Q12H 07/02/21 12/22/21 History Susp] Sennosides [Senna] 17.2 mg PEG/G-TUBE HS 08/28/21 12/22/21 History Amantadine Hcl Solution 50mg/5ml 100 mg PEG/G-TUBE DAILY 12/22/21 12/22/21 History Lacosamide [Vimpat] 150 mg PEG/G-TUBE Q12H 12/22/21 12/22/21 History Levofloxacin [Levaquin] 500 mg PEG/G-TUBE DAILY 12/22/21 12/22/21 History Prostat 30 ml PEG/G-TUBE DAILY 12/22/21 12/22/21 History guaiFENesin [Mucinex] 600 mg PEG/G-TUBE Q12H 12/22/21 12/22/21 History Allergies Allergy/AdvReac Type Severity Reaction Status Date / Time meropenem [From Merrem] Allergy Rash/Hives Verified 12/22/21 13:33 Physical Exam Vitals: Vital Signs Temp Pulse Pulse Resp BP BP Pulse Ox 12/23/21 07:50 93 L 12/23/21 07:34 98.4 F 94 20 135/72 97 12/23/21 00:19 98.6 F 102 H 16 112/74 100 12/22/21 20:30 131 H 12/22/21 20:17 131 H 19 108/74 96 12/22/21 19:47 98.8 F 138 H 19 95/64 97 12/22/21 18:55 20 104/60 12/22/21 17:31 18 127/53 93 L 12/22/21 16:01 78 20 142/83 94 L 12/22/21 14:26 71 18 141/97 100 12/22/21 13:10 20 12/22/21 13:04 98.1 F 85 20 132/96 98 Intake and Output 12/22/21 12/23/21 12/23/21 22:59 06:59 14:59 Output Total 600 Balance -600 Output: Urine 600 Other: Voiding Method Indwelling Catheter Weight 86.183 kg -GENERAL: The patient is awake , non-verbal at baseline, not in any acute distress. Well developed, well nourished. HEENT: Pupils are round and equally reacting to light. EOMI. No scleral icterus. No conjunctival pallor. Normocephalic, atraumatic. No pharyngeal erythema. No thyromegaly. CARDIOVASCULAR: S1 and S2 present. No murmurs, rubs, or gallops. PULMONARY: Chest is clear to auscultation, no wheezing or crackles. -ABDOMEN: Soft, nontender, distended with no abn facial expression or facial grimace on palpation, normoactive bowel sounds. No palpable organomegaly. PEG tube on Stein catheter are in place MUSCULOSKELETAL: No joint swelling or deformity. EXTREMITIES: No cyanosis, clubbing, or pedal edema. NEUROLOGICAL: Gross neurological examination did not reveal any focal deficits. SKIN: No rashes. no petechiae. Results CBC & Chem 7: 12/22/21 15:04 12/22/21 15:04 Labs: Abnormal Lab Results - Last 24 Hours (Table) 12/22/21 12/22/21 Range/Units 15:04 15:04 Hgb 12.5 L (13.0-17.5) gm/dL RDW 16.2 H (11.5-15.5) % Eosinophils # 0.8 H (0-0.7) k/uL Sodium 135 L (137-145) mmol/L Thrombosis Risk Factor Assmnt - Choose All That Apply Each Risk Factor Represents 2 Points: Age 61-74 years Each Risk Factor Represents 3 Points: History of DVT/PE Other congenital or acquired thrombophilia - If yes, enter type in comment: No Thrombosis Risk Factor Assessment Total Risk Factor Score: 5 Thrombosis Risk Factor Assessment Level: High Risk Assessment and Plan Assessment: -Mostly acute proctatitis with distention of the rectosigmoid junction, filled with gas and stool on CT of the A/P report -minimal intrahepatic portal venous gas with suspected occult pneumatosis of the superior aspect of the ascending colon, This could represent benign pneumatosis however focal colonic ischemia cannot be excluded. 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 Surgical team on the case, based on patient's morning pending full evaluation and recommendations tube Feeding is on hold Continue with gentle hydration with D5 normal saline 75 mL per hour Continue with Zosyn Labs and medication were reviewed.. Continue same treatment. Continue with symptomatic treatment. Resume home medication. Monitor lytes and vitals. DVT and GI prophylaxis. Further recommendationsas per clinical course of the patient DVT prophylaxis: Subcutaneous heparin GI Prophylaxis: Pepcid Prognosis is guarded
[2021-12-23] MEDS: DEXTROSE 5%-0.9% NACL 1,000 ML IV SCH (12:20)
[2021-12-23 12:22] LABS: Anisocytosis Slight; Basophils % (A) 0 %; Eosinophils # (A) 0.9 k/uL (0-0.7); Eosinophils % (A) 12 %; HCT 36.2 % (39.0-53.0); HGB 10.9 gm/dL (13.0-17.5); Hypochromasia Marked; Lymphocytes % (A) 14 %; MCH 25.3 pg (25.0-35.0); MCHC 30.3 g/dL (31.0-37.0); MCV 83.7 fL (80.0-100.0); Mean Platelet Volume 7.9; Monocytes # (A) 0.3 k/uL (0-1.0); Monocytes % (A) 4 %; Neutrophils % (A) 67 %; Platelet Count 342 k/uL (150-450); RBC 4.32 m/uL (4.30-5.90); RDW 16.2 % (11.5-15.5); WBC 7.4 k/uL (3.8-10.6)
[2021-12-23 12:29] LABS: African American GFR (CKD) >90 (>60 ml/min/1.73 sqM); Anion Gap 5 mmol/L; Blood Urea Nitrogen 17 mg/dL (9-20); Calcium 7.9 mg/dL (8.4-10.2); Carbon Dioxide 19 mmol/L (22-30); Chloride 111 mmol/L (98-107); Glucose 106 mg/dL (74-99); Non-African American GFR(CKD) >90 (>60 ml/min/1.73 sqM); Potassium 4.2 mmol/L (3.5-5.1); Sodium 135 mmol/L (137-145)
--- NOTE | 2021-12-23 14:42 | P.GSCN ---
History of Present Illness Consult date: 12/23/21 History of present illness: CHIEF COMPLAINT: Abdominal distention HISTORY OF PRESENT ILLNESS: This is a 61-year-old male with a history of advanced MS, seizure disorder, DVT, GERD, hypertension, neurologic disorder, frequent admissions for pneumonia, dysphasia with PEG tube and is nonverbal. He was sent in from residential for abdominal distention. He has been admitted several times in the past for abdominal distention and constipation. Patient had PEG tube placement on 09/09/2020 for severe malnutrition and dysphagia. CT of the abdomen was performed on admission reporting pneumatosis with wall thickening of the rectum with marked distention and rectosigmoid junction filled with gas and fecal material. Patient has been afebrile. It does not appear to be in any pain during examination. Again patient is nonverbal and HPI is obtained through the chart and nursing. WBC 7.4 hemoglobin 10.9 platelet count 342,000 sodium 135 potassium 4.2 BUN 17 creatinine 0.79 glucose 106. The patient had a large bowel movement in the afternoon. Nursing reports no nausea or vomiting. PAST MEDICAL HISTORY: See list. PAST SURGICAL HISTORY: See list. MEDICATIONS: See list. ALLERGIES: See list. SOCIAL HISTORY: No illicit drug use. REVIEW OF SYSTEMS: Unobtainable due to patient being nonverbal PHYSICAL EXAM: VITAL SIGNS: Reviewed GENERAL: Well-developed appears in no acute distress. Non-verbal. HEENT: No sclera icterus. Extraocular movements grossly intact. Moist buccal mucosa. Head is atraumatic, normocephalic. No nasal drainage. NECK: Supple without lymphadenopathy. CHEST: Non-labored respirations and equal bilateral excursions. CARDIOVASCULAR: Palpable 2+ radial pulses. ABDOMEN: Soft. Nondistended. Nontender. PEG tube in place. Positive bowel sounds. MUSCULOSKELETAL: No clubbing or cyanosis. NEUROLOGIC: No focal or lateralizing signs. Cranial nerves II through XII grossly intact. PSYCH: Appropriate affect. Alert and oriented to person, place and time. SKIN: Well perfused. Good skin turgor. LABORATORY DATA: WBC 7.4 hemoglobin 10.9 hematocrit 36 platelet count 342,000 Sodium 135 potassium 4.2 BUN 17 creatinine 0.79 glucose 106 Total bilirubin 0.4 AST 31 annual T 38 alk phos 105 IMAGING: CT abdomen and pelvis without contrast reports suspected minimal intrahepatic portal venous gas with suspected focal pneumatosis of the superior aspect of the ascending colon, associated with minimal gas seen in the adjacent mesenteric vessels as described above. This could represent benign ptosis however focal colonic ischemia cannot be excluded. No free peritoneal air. Wall thickening of the inferior aspect of the rectum with marked distention of the rectosigmoid junction filled with gas and fecal material, associated with mild wall thickening. Stercoral colitis cannot be excluded Chest x-ray: Mild linear opacities right lung base. Correlate for atelectasis and pneumonia. Follow-up can be performed as clinically indicated. ASSESSMENT: 1. Abdominal distention 2. Constipation 3. Pneumatosis seen on CT abdomen and pelvis 4. Multiple sclerosis 5. History of seizure disorder, patient nonverbal 6. History of malnutrition and dysphagia, patient has PEG tube 7. History of GERD 8. History of chronic constipation 9. History of DVT on anticoagulation 10. History of hypertension PLAN: 1. Continue symptomatic and supportive care 2. You may resume PEG tube feedings per dietitian recommendation 3. Continue Pepcid daily for GI prophylaxis 4. No plans in any surgical intervention 5. Continue medical management Thank you for this consultation, we will continue to follow. The impression and plan of care has been dictated as directed. I performed a history and examination of this patient, discussed the same with the dictator. I agree with the dictator's note ,documented as a scribe. Any additional findings or plans will be noted. PLEASE SEE SEPARATE REPORT BELOW: CHIEF COMPLAINT: Abdominal distention with abnormal computed tomography scan HISTORY OF PRESENT ILLNESS: The patient is a 61 year old male transferred from a residential due to abdominal distention. Patient has pre-existing history of multiple sclerosis and is nonverbal. He has multiple hospitalizations due to abdominal distention including constipation and fecal impaction. Patient had CT of the abdomen and pelvis demonstrating questionable abnormal findings of pneumatosis. General surgery is consulted as result. No reports of abdominal pain. No reports of recent blood in stools. No reports of fevers. No reports of prior colonoscopies. Patient primary source of nutrition is a gastrostomy tube. Patient's tube feedings has been held. PAST MEDICAL HISTORY: See list and reviewed PAST SURGICAL HISTORY: See list and reviewed MEDICATIONS: See list and reviewed ALLERGIES: See list and reviewed SOCIAL HISTORY: See list and reviewed FAMILY HISTORY: See list and reviewed REVIEW OF ORGAN SYSTEMS: CONSTITUTIONAL: No fevers or chills. EYES: Denies any trouble with vision. No glasses. HEENT: No difficulties with hearing. No nosebleeds. Has difficulty swallowing. Has dysarthria. RESPIRATORY: Has recurrent pneumonia. Past respiratory ventilatory failure. CARDIOVASCULAR: Past chest pain, palpitations, or recent heart attacks. Has atrial fibrillation. Has hypertensive heart disease. GASTROINTESTINAL: Denies fatty food intolerance. Has chronic abdominal distention including recurrent constipation. GENITOURINARY: Has urinary tract infection. NEUROLOGICAL: Has numbness or tingling along the distal extremities. Has seizure disorders. No headaches. Has trigeminal neuralgia. MUSCULOSKELETAL: Has multiple sclerosis. Has contractures. SKIN: No current skin cancer. Has decubitus ulcer. PSYCHIATRIC: Has cognitive impairment. Has dysarthria. ENDOCRINE: Denies current thyroid disorders. Denies any blood sugar glucose intolerance. HEME/LYMPHATIC: Denies any lumps and bumps around the neck. Past deep venous thrombosis. ALLERGY/IMMUNOLOGY: Has multiple infections including MRSA, ESBL, and multiple drug-resistant organisms. BREAST: Denies current breast lumps, pain or nipple discharge. PHYSICAL EXAM: VITALS: Reviewed CONSTITUTIONAL: Well developed and in no acute distress. EYES: Conjuctivae without sclera icterus. Extraocular movements grossly intact. HEAD, EARS, NOSE, THROAT: Moist buccal mucosa. Head is atraumatic, normocephalic. No nasal drainage. NECK: No JV distention. No thyroidomegaly. RESPIRATORY: Non-labored respirations and equal bilateral excursions. No gross wheezes. CARDIOVASCULAR: Palpable 2+ radial pulses. Irregular rate. Irregular rhythm. ABDOMEN: Soft. Has distention. No peritonitis. LYMPH: No lymphadenopathy MUSCULOSKELETAL: Nail and fingers with good capillary refill. SKIN: Warm and well perfused with good skin turgor. NEUROLOGIC: Cranial nerves II through XII grossly intact. Sensation upper and extremities intact. No focal or lateralizing signs. PSYCH: Non-verbal. Catatonic. CLINCAL LABS: Reviewed. WBC normal 7.6. Hemoglobin at 12.5, low. Creatinine normal at 0.68. IMAGING: CT of the abdomen and pelvis independently reviewed demonstrating no free air. No bowel obstruction. Moderate stool within the colon. Moderate colonic distention. This is my independent interpretation. RADIOLOGY: CT abdomen report demonstrated suspected minimal portal venous gas with moderate stool. Colitis cannot be excluded. EKG: Sinus rhythm, nonspecific T-wave abnormality. ASSESSMENT: 1. Recurrent abdominal distention with abnormal computed tomography scan 2. Multiple sclerosis 3. Gastrostomy tube status 4. Catatonia 5. History of multiple traverses Kamaljit is PLAN: 1. On exam, abdomen is soft without peritonitis. No clinical findings of pneumatosis. Patient is also hemodynamically stable. 2. During assessment, patient also had a large bowel movement without blood. 3. May restart tube feeds. 4. Will clinically monitor. 5. Repeat abdominal films. Past Medical History Past Medical History: Deep Vein Thrombosis (DVT), GERD/Reflux, Hypertension, Musculoskeletal Disorder, Neurologic Disorder, Pneumonia, Seizure Disorder, Skin Disorder Additional Past Medical History / Comment(s): Pt diagnosed with MS at the age of 39 yrs, eizure/pneumonia/UTI with sepsis/respirtory failure/vented, cognitive impairment, sister states when he is feeling well he could speak a few words/nod head appropriately/give thumbs up/roll eyes but when ill is nonverbal, pt has d ysphagia/NPO with peg tube, contractures, last seizure 07/2020, trigeminal neuralgia, dysarthria/anarthria/neurogenic bladder with IDC-UTIs/sepsis, multiple pneumonias, recent seizure-last one 07/03/20, incontinent of stool, pt has had decubitus ulcer coccyx-sister unsure of skin condition at this time, past anemia r/t heparin/epistaxiis which involved nasal packing/transfusions, DVT bilateral arms, hypoxia, oxygen at 2L/NC, L femoral head fracture History of Any Multi-Drug Resistant Organisms: ESBL, MRSA, Other MDRO Year Discovered:: 03/09/21-MRSA; 11/23/19 ESBL-E.coli MDRO Source:: Abdomen-Peg site MRSA; Urine -ESBL Past Surgical History: Tonsillectomy Additional Past Surgical History / Comment(s): Gastrostomy, peg tube, I&D coccyx decubitius, bronchoscopy, bilateral lasik eye surgery. Past Anesthesia/Blood Transfusion Reactions: No Reported Reaction Additional Past Anesthesia/Blood Transfusion Reaction / Comm: Pt has received blood in past without reaction. Past Psychological History: Depression Additional Psychological History / Comment(s): Pt resides at [facility]. He normally is in bed/amita lift to wheelchair. Has peg/IDC Smoking Status: Never smoker Past Alcohol Use History: None Reported Past Drug Use History: None Reported - Past Family History Father Family Medical History: Myocardial Infarction ([place]) Mother Family Medical History: Hypertension, Myocardial Infarction ([place]) Additional Family Medical History / Comment(s): Mother of a [place] at the age of 73 yrs. Medications and Allergies Home Medications Medication Instructions Recorded Confirmed Type Oxybutynin Chloride [Ditropan Oral 5 mg PEG/G-TUBE Q8H 09/08/19 12/22/21 History Soln] Ipratropium-Albuterol Nebulize 3 ml INHALATION RT-Q6H PRN 12/16/19 12/22/21 History [Duoneb 0.5 mg-3 mg/3 ml Soln] Baclofen [Lioresal] 10 mg PEG/G-TUBE Q8H 07/16/20 12/22/21 History Scopolamine [Scopolamine 1 MG/72 1 patch TRANSDERM Q72H 09/07/20 12/22/21 History HR patch] Aspirin 81 mg PEG/G-TUBE DAILY 11/27/20 12/22/21 History Cranberry Fruit Extract [Cranberry] 500 mg PEG/G-TUBE DAILY 11/27/20 12/22/21 History Famotidine [Pepcid] 20 mg PEG/G-TUBE HS 03/07/21 12/22/21 History Lactulose 20 gm PEG/G-TUBE TID 03/07/21 12/22/21 History Magnesium Hydroxide [Milk of 7,200 mg PEG/G-TUBE Q72H PRN 03/07/21 12/22/21 History Magnesia Concentrate] Acetaminophen Tab [Tylenol] 650 mg PEG/G-TUBE Q6H PRN MDD 06/13/21 12/22/21 History 3GM/24HR Metoprolol Tartrate [Lopressor] 25 mg PEG/G-TUBE Q12HR 06/13/21 12/22/21 History Metoprolol Tartrate [Lopressor] 50 mg PEG/G-TUBE Q12HR 06/13/21 12/22/21 History Cholecalciferol [Vitamin D3 (25 25 mcg PEG/G-TUBE DAILY 07/02/21 12/22/21 History Mcg = 1000 Iu)] carBAMazepine [carBAMazepine Oral 200 mg PEG/G-TUBE Q12H 07/02/21 12/22/21 History Susp] Sennosides [Senna] 17.2 mg PEG/G-TUBE HS 08/28/21 12/22/21 History Amantadine Hcl Solution 50mg/5ml 100 mg PEG/G-TUBE DAILY 12/22/21 12/22/21 History Lacosamide [Vimpat] 150 mg PEG/G-TUBE Q12H 12/22/21 12/22/21 History Levofloxacin [Levaquin] 500 mg PEG/G-TUBE DAILY 12/22/21 12/22/21 History Prostat 30 ml PEG/G-TUBE DAILY 12/22/21 12/22/21 History guaiFENesin [Mucinex] 600 mg PEG/G-TUBE Q12H 12/22/21 12/22/21 History Allergies Allergy/AdvReac Type Severity Reaction Status Date / Time meropenem [From Merrem] Allergy Rash/Hives Verified 12/22/21 13:33 Surgical - Exam Vital Signs Temp Pulse Resp BP Pulse Ox 98.1 F 85 20 132/96 98 12/22/21 13:04 12/22/21 13:04 12/22/21 13:04 12/22/21 13:04 12/22/21 13:04 Results - Labs 12/23/21 12:11 12/23/21 12:11 Abnormal Lab Results - Last 24 Hours (Table) 12/22/21 12/22/21 Range/Units 15:04 15:04 Hgb 12.5 L (13.0-17.5) gm/dL RDW 16.2 H (11.5-15.5) % Eosinophils # 0.8 H (0-0.7) k/uL Sodium 135 L (137-145) mmol/L Diabetes panel 12/22/21 Range/Units 15:04 Sodium 135 L (137-145) mmol/L Potassium 4.7 (3.5-5.1) mmol/L Chloride 102 (98-107) mmol/L Carbon Dioxide 24 (22-30) mmol/L BUN 19 (9-20) mg/dL Creatinine 0.68 (0.66-1.25) mg/dL Glucose 96 (74-99) mg/dL Calcium 8.7 (8.4-10.2) mg/dL AST 31 (17-59) U/L ALT 38 (4-49) U/L Alkaline Phosphatase 105 (38-126) U/L Total Protein 7.3 (6.3-8.2) g/dL Albumin 3.9 (3.5-5.0) g/dL Calcium panel 12/22/21 Range/Units 15:04 Calcium 8.7 (8.4-10.2) mg/dL Albumin 3.9 (3.5-5.0) g/dL Pituitary panel 12/22/21 Range/Units 15:04 Sodium 135 L (137-145) mmol/L Potassium 4.7 (3.5-5.1) mmol/L Chloride 102 (98-107) mmol/L Carbon Dioxide 24 (22-30) mmol/L BUN 19 (9-20) mg/dL Creatinine 0.68 (0.66-1.25) mg/dL Glucose 96 (74-99) mg/dL Calcium 8.7 (8.4-10.2) mg/dL Adrenal panel 12/22/21 Range/Units 15:04 Sodium 135 L (137-145) mmol/L Potassium 4.7 (3.5-5.1) mmol/L Chloride 102 (98-107) mmol/L Carbon Dioxide 24 (22-30) mmol/L BUN 19 (9-20) mg/dL Creatinine 0.68 (0.66-1.25) mg/dL Glucose 96 (74-99) mg/dL Calcium 8.7 (8.4-10.2) mg/dL Total Bilirubin 0.4 (0.2-1.3) mg/dL AST 31 (17-59) U/L ALT 38 (4-49) U/L Alkaline Phosphatase 105 (38-126) U/L Total Protein 7.3 (6.3-8.2) g/dL Albumin 3.9 (3.5-5.0) g/dL Assessment and Plan (1) Anemia Current Visit: Yes Status: Acute Code(s): D64.9 - ANEMIA, UNSPECIFIED SNOMED Code(s): 547445362 (2) Chronic constipation Current Visit: Yes Status: Acute Code(s): K59.09 - OTHER CONSTIPATION SNOMED Code(s): 211080798 (3) Abdominal distention Current Visit: Yes Status: Acute Code(s): R14.0 - ABDOMINAL DISTENSION (GASEOUS) SNOMED Code(s): 35589232 (4) Multiple sclerosis, primary progressive Current Visit: No Status: Chronic Code(s): G35 - MULTIPLE SCLEROSIS SNOMED Code(s): 572776199
[2021-12-23] MEDS: HEPARIN SODIUM,PORCINE/PF 5,000 UNIT/0.5 ML SYRINGE SQ SCH (22:14)
[2021-12-23] MEDS: FAMOTIDINE 8 MG/ML ORAL.SUSP PEG/G-TUBE SCH (22:17)
[2021-12-24] MEDS: PIPERACILLIN-TAZOBACTAM 3.375 GM in SODIUM CHLORIDE 0.9% 100 ML IVPB SCH ×4 (00:11→23:40)
[2021-12-24] MEDS: BACLOFEN 10 MG TAB PEG/G-TUBE SCH ×4 (00:11→23:40)
[2021-12-24] MEDS: DEXTROSE 5%-0.9% NACL 1,000 ML IV SCH ×2 (06:22→16:05)
[2021-12-24] MEDS: HEPARIN SODIUM,PORCINE/PF 5,000 UNIT/0.5 ML SYRINGE SQ SCH ×2 (09:08→21:18)
[2021-12-24] MEDS: METOPROLOL TARTRATE 25 MG TAB PEG/G-TUBE SCH ×2 (09:09→21:17)
[2021-12-24] MEDS: LACOSAMIDE 150 MG TABLET PEG/G-TUBE SCH ×2 (09:09→21:17)
[2021-12-24] MEDS: ASPIRIN 81 MG PEG/G-TUBE SCH (09:09)
[2021-12-24] MEDS: METOPROLOL TARTRATE 50 MG TAB PEG/G-TUBE SCH ×2 (09:58→21:17)
[2021-12-24 12:20] LABS: Appearance,Urine Clear (Clear); Bacteria,Urine Rare /hpf; Bilirubin,Urine Negative (Negative); Blood,Urine Negative (Negative); Color,Urine Light Yellow; Glucose,Urine (UA) Negative (Negative); Ketones,Urine Negative (Negative); Leukocyte Esterase,Urine Large (Negative); Mucus,Urine Rare /hpf; Nitrite,Urine Negative (Negative); Protein,Urine Negative (Negative); RBC,Urine 7 /hpf (0-5); Specific Gravity,Urine 1.007 (1.001-1.035); Urobilinogen,Urine <2.0 mg/dL (<2.0); WBC,Urine 44 /hpf (0-5)
--- NOTE | 2021-12-24 14:17 | P.PN ---
Subjective Progress Note Date: 12/24/21 CHIEF COMPLAINT: Abdominal distention with abnormal computed tomography scan HISTORY OF PRESENT ILLNESS: The patient is a 61 year old male transferred from a long-term due to abdominal distention with abnormal computed tomography scan. Since admission, patient's had bowel movements. He is tolerating tube feeds. No reports of blood in stools. REVIEW OF ORGAN SYSTEMS: No fevers or chills. No chest pain. No neurological changes. PHYSICAL EXAM: VITALS: Reviewed CONSTITUTIONAL: Well developed and in no acute distress. EYES: Conjuctivae without sclera icterus. Extraocular movements grossly intact. HEAD, EARS, NOSE, THROAT: Moist buccal mucosa. Head is atraumatic, normocephalic. No nasal drainage. RESPIRATORY: Non-labored respirations and equal bilateral excursions. No gross wheezes. CARDIOVASCULAR: Palpable 2+ radial pulses. ABDOMEN: Soft. Minimal distention. No peritonitis. MUSCULOSKELETAL: Nail and fingers with good capillary refill. SKIN: Warm and well perfused with good skin turgor. NEUROLOGIC: Cranial nerves II through XII grossly intact. No focal or lateralizing signs. PSYCH: Non-verbal. Alert to person. CLINCAL LABS: Reviewed. WBC 7.4, normal prior. Hgb less than 13.0. Hemoglobin down 12.5-10.9. ASSESSMENT: 1. Recurrent abdominal distention with abnormal computed tomography scan 2. Multiple sclerosis 3. Gastrostomy tube status 4. Catatonia 5. Anemia PLAN: 1. Patient is clinically stable. He may benefit from lower endoscopy as he has no prior record identified and with recurrent abdominal distention and recent ischemic colitis per computed tomography scan. 2. Patient has anemia. Recommend upper and lower endoscopy for anemia including recent colitis or computed tomography scan. ADDENDUM: Additional history obtained via power of banking attorney, sister Dot. Sister confirms patient never had a prior colonoscopy. Patient has recurrent b lockages and abdominal distention. Discussions of alternatives including barium enema reviewed. May attempt barium enema followed by colonoscopy per discussion with sister's request. Time of conversation 1421 to 1433, over 10 minute conversation Objective - Vital Signs Vital signs: Vital Signs Temp 98.6 F 12/24/21 09:06 Pulse 77 12/24/21 09:06 Resp 17 12/24/21 09:06 BP 148/66 03/26/22 09:06 Pulse Ox 97 12/24/21 09:06 Intake & Output 12/23/21 12/24/21 12/24/21 18:59 06:59 18:59 Output Total 605 1200 Balance -605 -1200 Weight 86.183 kg 79 kg Output: Urine 605 1200 Uretheral (Stein) 405 Other: Voiding Method Indwelling Catheter Indwelling Catheter Indwelling Catheter # Bowel Movements 1 - Labs CBC & Chem 7: 12/23/21 12:11 12/23/21 12:11 Labs: Abnormal Lab Results - Last 24 Hours (Table) 12/24/21 Range/Units 12:00 Ur Leukocyte Esterase Large H (Negative) Urine RBC 7 H (0-5) /hpf Urine WBC 44 H (0-5) /hpf Urine Bacteria Rare H (None) /hpf Urine Mucus Rare H (None) /hpf Microbiology - Last 24 Hours (Table) 12/22/21 17:32 Blood Culture Gram Stain - Preliminary Blood Blood Culture - Preliminary Coagulase Negative Staph 12/22/21 17:00 Blood Culture - Preliminary Blood No Growth after 24 hours 12/22/21 17:15 Blood Culture - Final Blood Assessment and Plan (1) Abdominal distention Current Visit: Yes Status: Acute Code(s): R14.0 - ABDOMINAL DISTENSION (GASEOUS) SNOMED Code(s): 83455075 (2) Anemia Current Visit: Yes Status: Acute Code(s): D64.9 - ANEMIA, UNSPECIFIED SNOMED Code(s): 037009691 (3) Chronic constipation Current Visit: Yes Status: Acute Code(s): K59.09 - OTHER CONSTIPATION SNOMED Code(s): 194366529 (4) Constipation Current Visit: No Status: Acute Code(s): K59.00 - CONSTIPATION, UNSPECIFIED SNOMED Code(s): 08228660 (5) Fecal impaction of colon Current Visit: No Status: Acute Code(s): K56.41 - FECAL IMPACTION SNOMED Code(s): 31147769 (6) Gastrostomy tube dependent Current Visit: No Status: Acute Code(s): Z93.1 - GASTROSTOMY STATUS SNOMED Code(s): 428907456 (7) Multiple sclerosis Current Visit: No Status: Acute Code(s): G35 - MULTIPLE SCLEROSIS SNOMED Code(s): 43279607 (8) Multiple sclerosis, primary progressive Current Visit: No Status: Chronic Code(s): G35 - MULTIPLE SCLEROSIS SNOMED Code(s): 883770851
--- NOTE | 2021-12-24 20:04 | P.PN ---
Subjective 61-year-old male history of advanced MS , multiple hospitalization with multiple infections and multiple medical problems including history of UTI and pneumonia infections before. He has indwelling Stein catheter. Patient is nonverbal at baseline so information obtained from staff and medical records. No family at bedside. As per ED notes patient sent from his halfway for abdominal distention with recommendation for CAT scan. I spoke with Dr. diamond last night, he was already discussed the case with Dr. Mike for his abdominal computed tomography scan on admission and she recommended no surgical intervention and to be admitted under medical service. This morning Patient himself is awake and alert, he has contracture in all extremities, he does not follow commands, nonverbal at baseline, does not look in distress. Stein catheter and PEG tube in place, 2 previous is on hold. As per staff patient did not have a bowel movement only use of stool. His abdomen looks mildly distended but there is no tenderness or facial he remains on superficial or deep palpation. Patient is mildly tachycardic on admission, afebrile, during the night it became slightly hypotensive 95/64 and tachycardic 138, received 1 bolus of normal saline over 500 mL and then continued on, his blood pressure this morning improved with 35/72 and heart rate 94 Labs reviewed showed normal white cell count, risks of CBC, BMP and liver enzymes are unremarkable. CT of the abdomen and pelvis without contrast showing suspect minimal intrahepatic portal venous gas with suspected occult pneumatosis of the superior aspect of the ascending colon, associated with minimal gas seen in the adjacent mesenteric vessels. This could represent benign pneumatosis however focal colonic ischemia cannot be excluded. No free peritoneal air. Also with wall t hickening of the inferior aspect of the rectum with marked distention of the rectosigmoid junction. With gas and fecal material, associated with mild wall thickening, 12/24/2021 Patient is still lethargic since yesterday, is nonverbal at baseline with 4 extremity contractures. Positive blood culture for coag place negative staph, currently is on Zosyn, urine analysis with evidence of UTI, urine culture is pending. ID team is consulted Continue with the 5 normal saline at 40 mL/h Surgery team are considering Colonoscopy/EGD Objective - Vital Signs Vital signs: Vital Signs Temp 98.6 F 12/24/21 09:06 Pulse 77 12/24/21 09:06 Resp 17 12/24/21 09:06 BP 148/66 12/24/21 09:06 Pulse Ox 97 12/24/21 09:06 Intake & Output 12/23/21 12/24/21 12/24/21 18:59 06:59 18:59 Output Total 605 1200 Balance -605 -1200 Weight 86.183 kg 79 kg Output: Urine 605 1200 Uretheral (Stein) 405 Other: Voiding Method Indwelling Catheter Indwelling Catheter Indwelling Catheter # Bowel Movements 1 - Exam -GENERAL: The patient is awake , non-verbal at baseline, not in any acute distress. Well developed, well nourished. HEENT: Pupils are round and equally reacting to light. EOMI. No scleral icterus. No conjunctival pallor. Normocephalic, atraumatic. No pharyngeal erythema. No thyromegaly. CARDIOVASCULAR: S1 and S2 present. No murmurs, rubs, or gallops. PULMONARY: Chest is clear to auscultation, no wheezing or crackles. -ABDOMEN: Soft, nontender, distended with no abn facial expression or facial grimace on palpation, normoactive bowel sounds. No palpable organomegaly. PEG tube on Stein catheter are in place MUSCULOSKELETAL: No joint swelling or deformity. EXTREMITIES: No cyanosis, clubbing, or pedal edema. -NEUROLOGICAL: Gross neurological examination did not reveal any focal deficits. Patient has 4 extremity contractures, nonverbal at baseline SKIN: No rashes. no petechiae. - Labs CBC & Chem 7: 12/23/21 12:11 12/23/21 12:11 Labs: Abnormal Lab Results - Last 24 Hours (Table) 12/24/21 Range/Units 12:00 Ur Leukocyte Esterase Large H (Negative) Urine RBC 7 H (0-5) /hpf Urine WBC 44 H (0-5) /hpf Urine Bacteria Rare H (None) /hpf Urine Mucus Rare H (None) /hpf Microbiology - Last 24 Hours (Table) 12/22/21 17:32 Blood Culture Gram Stain - Preliminary Blood Blood Culture - Preliminary Coagulase Negative Staph 12/22/21 17:00 Blood Culture - Preliminary Blood No Growth after 24 hours 12/22/21 17:15 Blood Culture - Final Blood Assessment and Plan Assessment: -Mostly acute proctatitis with distention of the rectosigmoid junction, filled with gas and stool on CT of the A/P report -minimal intrahepatic portal venous gas with suspected occult pneumatosis of the superior aspect of the ascending colon, This could represent benign pneumatosis however focal colonic ischemia cannot be excluded. 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 Surgical team on the case, based on patient's morning pending full evaluation and recommendations tube Feeding is on hold Continue with gentle hydration with D5 normal saline 75 mL per hour Continue with Zosyn Labs and medication were reviewed.. Continue same treatment. Continue with symptomatic treatment. Resume home medication. Monitor lytes and vitals. DVT and GI prophylaxis. Further recommendationsas per clinical course of the patient DVT prophylaxis: Subcutaneous heparin GI Prophylaxis: Pepcid Prognosis is guarded
[2021-12-24] MEDS: FAMOTIDINE 8 MG/ML ORAL.SUSP PEG/G-TUBE SCH (21:18)
--- NOTE | 2021-12-24 23:06 | P.CONS ---
History of Present Illness - Reason for Consult Consult date: 12/24/21 Bacteremia Requesting physician: Avila E Sheet - Chief Complaint Abdominal distention x one day - History of Present Illness Patient is a 61-year-old male with a past medical history significant for MS in this patient who is a [facility] resident bedbound state history of recurrent catheter associated UTI and pneumonias the patient was sent to the ER from the [facility] for evaluation of abdominal distention and need for a CT abdominal pelvis and apparently the patient did have some constipation but no history of any vomiting patient on presentation to the hospital was afebrile and no fever had recorded subsequently patient did have a normal white count kidney function has been normal liver enzymes are normal patient did have a CT of abdominal pelvis completed suspect minimal intrahepatic portal venous gas with suspected focal pneumatosis of the superior aspect of the ascending colon is sensitive minimal gas seen in the adjacent mesenteric vessel cord represent focal colonic ischemia wall thinning of the inferior aspect of the rectum with marked distention of the rectosigmoid junction patient was admitted to the hospital and has been evaluated by general surgery team patient was started on Zosyn blood culture subsequently reported positive with gram-positive cocci infectious disease was consulted for further management of antibiotic therapy most of the information has been obtained from review the chart talking to nursing staff at the patient himself cannot provide any history Review of Systems Positive points has been mentioned in HPI complete review could not be obtained because of his underlying mental status Past Medical History Past Medical History: Deep Vein Thrombosis (DVT), GERD/Reflux, Hypertension, Musculoskeletal Disorder, Neurologic Disorder, Pneumonia, Seizure Disorder, Skin Disorder Additional Past Medical History / Comment(s): Pt diagnosed with MS at the age of 39 yrs, eizure/pneumonia/UTI with sepsis/respirtory failure/vented, cognitive impairment, sister states when he is feeling well he could speak a few words/nod head appropriately/give thumbs up/roll eyes but when ill is nonverbal, pt has dysphagia/NPO with peg tube, contractures, last seizure 07/2020, trigeminal neuralgia, dysarthria/anarthria/neurogenic bladder with IDC-UTIs/sepsis, multiple pneumonias, recent seizure-last one 07/03/20, incontinent of stool, pt has had decubitus ulcer coccyx-sister unsure of skin condition at this time, past anemia r/t heparin/epistaxiis which involved nasal packing/transfusions, DVT bilateral arms, hypoxia, oxygen at 2L/NC, L femoral head fracture History of Any Multi-Drug Resistant Organisms: ESBL, MRSA, Other MDRO Year Discovered:: 03/09/21-MRSA; 11/23/19 ESBL-E.coli MDRO Source:: Abdomen-Peg site MRSA; Urine -ESBL Past Surgical History: Tonsillectomy Additional Past Surgical History / Comment(s): Gastrostomy, peg tube, I&D coccyx decubitius, bronchoscopy, bilateral lasik eye surgery. Past Anesthesia/Blood Transfusion Reactions: No Reported Reaction Additional Past Anesthesia/Blood Transfusion Reaction / Comm: Pt has received blood in past without reaction. Past Psychological History: Depression Additional Psychological History / Comment(s): Pt resides at [facility]. He normally is in bed/amita lift to wheelchair. Has peg/IDC Smoking Status: Never smoker Past Alcohol Use History: None Reported Past Drug Use History: None Reported - Past Family History Father Family Medical History: Myocardial Infarction (CA) Mother Family Medical History: Hypertension, Myocardial Infarction (CA) Additional Family Medical History / Comment(s): Mother of a CA at the age of 73 yrs. Medications and Allergies Home Medications Medication Instructions Recorded Confirmed Type Oxybutynin Chloride [Ditropan Oral 5 mg PEG/G-TUBE Q8H 09/08/19 12/22/21 History Soln] Ipratropium-Albuterol Nebulize 3 ml INHALATION RT-Q6H PRN 12/16/19 12/22/21 History [Duoneb 0.5 mg-3 mg/3 ml Soln] Baclofen [Lioresal] 10 mg PEG/G-TUBE Q8H 07/16/20 12/22/21 History Scopolamine [Scopolamine 1 MG/72 1 patch TRANSDERM Q72H 09/07/20 12/22/21 H istory HR patch] Aspirin 81 mg PEG/G-TUBE DAILY 11/27/20 12/22/21 History Cranberry Fruit Extract [Cranberry] 500 mg PEG/G-TUBE DAILY 11/27/20 12/22/21 History Famotidine [Pepcid] 20 mg PEG/G-TUBE HS 03/07/21 12/22/21 History Lactulose 20 gm PEG/G-TUBE TID 03/07/21 12/22/21 History Magnesium Hydroxide [Milk of 7,200 mg PEG/G-TUBE Q72H PRN 03/07/21 12/22/21 History Magnesia Concentrate] Acetaminophen Tab [Tylenol] 650 mg PEG/G-TUBE Q6H PRN MDD 06/13/21 12/22/21 History 3GM/24HR Metoprolol Tartrate [Lopressor] 25 mg PEG/G-TUBE Q12HR 06/13/21 12/22/21 History Metoprolol Tartrate [Lopressor] 50 mg PEG/G-TUBE Q12HR 06/13/21 12/22/21 History Cholecalciferol [Vitamin D3 (25 25 mcg PEG/G-TUBE DAILY 07/02/21 12/22/21 History Mcg = 1000 Iu)] carBAMazepine [carBAMazepine Oral 200 mg PEG/G-TUBE Q12H 07/02/21 12/22/21 History Susp] Sennosides [Senna] 17.2 mg PEG/G-TUBE HS 08/28/21 12/22/21 History Amantadine Hcl Solution 50mg/5ml 100 mg PEG/G-TUBE DAILY 12/22/21 12/22/21 History Lacosamide [Vimpat] 150 mg PEG/G-TUBE Q12H 12/22/21 12/22/21 History Levofloxacin [Levaquin] 500 mg PEG/G-TUBE DAILY 12/22/21 12/22/21 History Prostat 30 ml PEG/G-TUBE DAILY 12/22/21 12/22/21 History guaiFENesin [Mucinex] 600 mg PEG/G-TUBE Q12H 12/22/21 12/22/21 History Allergies Allergy/AdvReac Type Severity Reaction Status Date / Time meropenem [From Merrem] Allergy Rash/Hives Verified 12/22/21 13:33 Physical Exam Vitals: Vital Signs Temp Pulse Resp BP Pulse Ox 12/24/21 09:06 98.6 F 77 17 148/66 97 12/24/21 02:00 97.6 F 96 17 136/78 94 L 12/23/21 20:00 98.2 F 74 17 136/83 93 L 12/23/21 19:03 17 12/23/21 15:01 67 18 12/23/21 14:00 97.6 F 67 12 128/73 Intake and Output 12/23/21 12/24/21 12/24/21 22:59 06:59 14:59 Output Total 200 1200 Balance -200 -1200 Output: Urine 200 1200 Other: Voiding Method Indwelling Catheter Indwelling Catheter Weight 79 kg GENERAL DESCRIPTION: Middle-aged male lying in bed, no distress. No tachypnea or accessory muscle of respiration use. HEENT: Shows Pallor , no scleral icterus. Oral mucous membrane is dry. No pharyn geal erythema or thrush NECK: Trachea central, no thyromegaly. LUNGS: Unlabored breathing. Clear to auscultation anteriorly. No wheeze or crackle. HEART: S1, S2, regular rate and rhythm. No loud murmur ABDOMEN: Soft, no tenderness , guarding or rigidity, no organomegaly EXTREMITIES: No edema of feet. Right heel area did have a stage II pressure ulcer with no cellulitis SKIN: No rash, no masses palpable. NEUROLOGICAL: The patient is awake, but nonverbal orientation could not be determined Results CBC & Chem 7: 12/23/21 12:11 12/23/21 12:11 Labs: Abnormal Lab Results - Last 24 Hours (Table) 12/23/21 12/23/21 Range/Units 12:11 12:11 Hgb 10.9 L (13.0-17.5) gm/dL Hct 36.2 L (39.0-53.0) % MCHC 30.3 L (31.0-37.0) g/dL RDW 16.2 H (11.5-15.5) % Eosinophils # 0.9 H (0-0.7) k/uL Sodium 135 L (137-145) mmol/L Chloride 111 H (98-107) mmol/L Carbon Dioxide 19 L (22-30) mmol/L Glucose 106 H (74-99) mg/dL Calcium 7.9 L (8.4-10.2) mg/dL Microbiology - Last 24 Hours (Table) 12/22/21 17:32 Blood Culture Gram Stain - Preliminary Blood Blood Culture - Preliminary Coagulase Negative Staph 12/22/21 17:00 Blood Culture - Preliminary Blood No Growth after 24 hours 12/22/21 17:15 Blood Culture - Final Blood Assessment and Plan (1) Bacteremia Current Visit: Yes Status: Acute Code(s): R78.81 - BACTEREMIA SNOMED Code(s): 5747246 Plan: 1patient with a positive blood culture with gram-positive cocci likely coagulase-negative staph and more likely skin contaminant as the patient has no clinical disease to go along with it. 2patient with abdominal distention with abnormal CT suspicious for possible ischemic bowel however the patient does not look toxic with no fever or elevated white count will need to call for the enteric gram-negative's. 3continue with Zosyn 3.375 g every 8 hours and no need for vancomycin. 4gentle IV fluid We will follow on clinical condition and cultures to further adjust medication if needed Thank you for this consultation will follow this patient along with you
[2021-12-25] MEDS: DEXTROSE 5%-0.9% NACL 1,000 ML IV SCH (05:09)
[2021-12-25] MEDS: PIPERACILLIN-TAZOBACTAM 3.375 GM in SODIUM CHLORIDE 0.9% 100 ML IVPB SCH ×3 (07:41→23:51)
[2021-12-25] MEDS: BACLOFEN 10 MG TAB PEG/G-TUBE SCH ×3 (07:42→23:50)
[2021-12-25] MEDS: LACOSAMIDE 150 MG TABLET PEG/G-TUBE SCH ×2 (07:42→20:11)
[2021-12-25] MEDS: METOPROLOL TARTRATE 25 MG TAB PEG/G-TUBE SCH ×2 (07:42→20:11)
[2021-12-25] MEDS: METOPROLOL TARTRATE 50 MG TAB PEG/G-TUBE SCH ×2 (07:42→20:11)
[2021-12-25] MEDS: ASPIRIN 81 MG PEG/G-TUBE SCH (07:42)
[2021-12-25] MEDS: HEPARIN SODIUM,PORCINE/PF 5,000 UNIT/0.5 ML SYRINGE SQ SCH ×2 (07:42→20:11)
[2021-12-25] MEDS ORDERED: POLYETHYLENE GLYCOL LYTES SOLN 4,000 ML SOLN.RECON PO ONE ×2 (08:00→12:57)
--- NOTE | 2021-12-25 12:57 | P.PN ---
Subjective Progress Note Date: 12/25/21 Principal diagnosis: Tolerating prep. Abdomen is flat. No further distention. AXR ordered for baseline prior to colonoscopy and/or barium enema. Plan for upper and lower scope due to anemia. Multiple brown bowel movements. Increase to 4000 mL bowel prep. Objective - Vital Signs Vital signs: Vital Signs Temp 98.8 F 12/25/21 08:00 Pulse 73 12/25/21 08:00 Resp 16 12/25/21 08:00 BP 154/84 12/25/21 08:00 Pulse Ox 99 12/25/21 08:00 Intake & Output 12/24/21 12/25/21 12/25/21 18:59 06:59 18:59 Output Total 1300 3000 1500 Balance -1300 -3000 -1500 Output: Urine 1300 3000 1500 Uretheral (Stein) 1000 Other: Voiding Method Indwelling Catheter Indwelling Catheter Indwelling Catheter # Bowel Movements 2 - Labs CBC & Chem 7: 12/23/21 12:11 12/23/21 12:11 Labs: Microbiology - Last 24 Hours (Table) 12/24/21 12:00 Urine Culture - Final Urine,Voided 12/22/21 17:00 Blood Culture - Preliminary Blood No Growth after 48 hours 12/22/21 17:32 Blood Culture Gram Stain - Preliminary Blood Blood Culture - Preliminary Coagulase Negative Staph Assessment and Plan (1) Abdominal distention Current Visit: Yes Status: Acute Code(s): R14.0 - ABDOMINAL DISTENSION (GASEOUS) SNOMED Code(s): 66099842 (2) Anemia Current Visit: Yes Status: Acute Code(s): D64.9 - ANEMIA, UNSPECIFIED SNOMED Code(s): 659665133 (3) Chronic constipation Current Visit: Yes Status: Acute Code(s): K59.09 - OTHER CONSTIPATION SNOMED Code(s): 524753910 (4) Constipation Current Visit: No Status: Acute Code(s): K59.00 - CONSTIPATION, UNSPECIFIED SNOMED Code(s): 17381686 (5) Fecal impaction of colon Current Visit: No Status: Acute Code(s): K56.41 - FECAL IMPACTION SNOMED Code(s): 81906486 (6) Gastrostomy tube dependent Current Visit: No Status: Acute Code(s): Z93.1 - GASTROSTOMY STATUS SNOMED Code(s): 608532138 (7) Multiple sclerosis Current Visit: No Status: Acute Code(s): G35 - MULTIPLE SCLEROSIS SNOMED Code(s): 93620844 (8) Multiple sclerosis, primary progressive Current Visit: No Status: Chronic Code(s): G35 - MULTIPLE SCLEROSIS SNOMED Code(s): 237228788
[2021-12-25 12:58] LABS: Basophils # (A) 0.02 X 10*3/uL (0.00-0.10); Basophils % (A) 0.2 %; Eosinophils # (A) 0.53 X 10*3/uL (0.04-0.35); Eosinophils % (A) 6.1 %; HGB 10.2 g/dL (13.0-17.0); Immature Grans, Automated 0.3 %; Lymphocytes # (A) 1.01 X 10*3/uL (0.90-5.00); Lymphocytes % (A) 11.7 %; MCH 23.5 pg (27.0-32.0); MCHC 28.3 g/dL (32.0-37.0); MCV 82.9 fL (80.0-97.0); Mean Platelet Volume 11.7 fL (9.5-12.2); Monocytes # (A) 0.61 X 10*3/uL (0.20-1.00); Monocytes % (A) 7.1 %; NRBC Per 100 WBC 0 /100 WBCS (0.0-0.0); Neutrophils # (A) 6.42 X 10*3/uL (1.80-7.70); Neutrophils % (A) 74.6 %; Platelet Count 319 X 10*3/uL (140-440); RBC 4.34 X 10*6/uL (4.40-5.60); RDW 16.8 % (11.5-14.5); WBC 8.62 X 10*3/uL (4.50-10.00)
--- NOTE | 2021-12-25 14:08 | XR ---
EXAMINATION TYPE: XR abdomen 2V DATE OF EXAM: 12/25/2021 COMPARISON: 09/01/2021 INDICATION: Ileus TECHNIQUE: Abdomen is examined in the supine and upright view FINDINGS: There is a normal bowel gas pattern. Colonic bowel gas is present. PEG tube is in the midline. Psoas margins are normal. No organomegaly is present. IMPRESSION: 1. Nonspecific abdomen
--- NOTE | 2021-12-25 17:11 | P.PN ---
Subjective 61-year-old male history of advanced MS , multiple hospitalization with multiple infections and multiple medical problems including history of UTI and pneumonia infections before. He has indwelling Stein catheter. Patient is nonverbal at baseline so information obtained from staff and medical records. No family at bedside. As per ED notes patient sent from his [place] [facility] for abdominal distention with recommendation for CAT scan. I spoke with Dr. diamond last night, he was already discussed the case with Dr. Mike for his abdominal computed tomography scan on admission and she recommended no surgical intervention and to be admitted under medical service. This morning Patient himself is awake and alert, he has contracture in all extremities, he does not follow commands, nonverbal at baseline, does not look in distress. Stein catheter and PEG tube in place, 2 previous is on hold. As per staff patient did not have a bowel movement only use of stool. His abdomen looks mildly distended but there is no tenderness or facial he remains on superficial or deep palpation. Patient is mildly tachycardic on admission, afebrile, during the night it became slightly hypotensive 95/64 and tachycardic 138, received 1 bolus of normal saline over 500 mL and then continued on, his blood pressure this morning improved with 35/72 and heart rate 94 Labs reviewed showed normal white cell count, risks of CBC, BMP and liver enzymes are unremarkable. CT of the abdomen and pelvis without contrast showing suspect minimal intrahepatic portal venous gas with suspected occult pneumatosis of the superior aspect of the ascending colon, associated with minimal gas seen in the adjacent mesenteric vessels. This could represent benign pneumatosis however focal colonic ischemia cannot be excluded. No free peritoneal air. Also with wall t hickening of the inferior aspect of the rectum with marked distention of the rectosigmoid junction. With gas and fecal material, associated with mild wall thickening, 12/24/2021 Patient is still lethargic since yesterday, is nonverbal at baseline with 4 extremity contractures. Positive blood culture for coag place negative staph, currently is on Zosyn, urine analysis with evidence of UTI, urine culture is pending. ID team is consulted Continue with the 5 normal saline at 40 mL/h Surgery team are considering Colonoscopy/EGD 12/25/2021 Patient is clinically the same, tube feeding is on hold for bowel preparation. Patient scheduled for colonoscopy/EGD tomorrow with surgery team. Hemoglobin stable at 10 Was blood culture most likely contaminant, remains on [facility] team on the case. Objective - Vital Signs Vital signs: Vital Signs Temp 98.8 F 12/25/21 08:00 Pulse 73 12/25/21 08:00 Resp 16 12/25/21 08:00 BP 154/84 12/25/21 08:00 Pulse Ox 99 12/25/21 08:00 Intake & Output 12/24/21 12/25/21 12/25/21 18:59 06:59 18:59 Output Total 1300 3000 Balance -1300 -3000 Output: Urine 1300 3000 Uretheral (Stein) 1000 Other: Voiding Method Indwelling Catheter Indwelling Catheter Indwelling Catheter - Exam -GENERAL: The patient is awake , non-verbal at baseline, not in any acute distress. Well developed, well nourished. HEENT: Pupils are round and equally reacting to light. EOMI. No scleral icterus. No conjunctival pallor. Normocephalic, atraumatic. No pharyngeal erythema. No thyromegaly. CARDIOVASCULAR: S1 and S2 present. No murmurs, rubs, or gallops. PULMONARY: Chest is clear to auscultation, no wheezing or crackles. -ABDOMEN: Soft, nontender, distended with no abn facial expression or facial grimace on palpation, normoactive bowel sounds. No palpable organomegaly. PEG tube on Stein catheter are in place MUSCULOSKELETAL: No joint swelling or deformity. EXTREMITIES: No cyanosis, clubbing, or pedal edema. -NEUROLOGICAL: Gross neurological examination did not reveal any focal deficits. Patient has 4 extremity contractures, nonverbal at baseline SKIN: No rashes. no petechiae. - Labs CBC & Chem 7: 12/25/21 04:24 12/23/21 12:11 Labs: Microbiology - Last 24 Hours (Table) 12/24/21 12:00 Urine Culture - Final Urine,Voided 12/22/21 17:00 Blood Culture - Preliminary Blood No Growth after 48 hours 12/22/21 17:32 Blood Culture Gram Stain - Preliminary Blood Blood Culture - Preliminary Coagulase Negative Staph Assessment and Plan Assessment: -Mostly acute proctatitis with distention of the rectosigmoid junction, filled with gas and stool on CT of the A/P report -minimal intrahepatic portal venous gas with suspected occult pneumatosis of the superior aspect of the ascending colon, This could represent benign pneumatosis however focal colonic ischemia cannot be excluded. 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 Surgical team on the case, based on patient's morning pending full evaluation and recommendations tube Feeding is on hold Continue with gentle hydration with D5 normal saline 75 mL per hour Continue with Zosyn Labs and medication were reviewed.. Continue same treatment. Continue with symptomatic treatment. Resume home medication. Monitor lytes and vitals. DVT and GI prophylaxis. Further recommendationsas per clinical course of the dorothy vázquez DVT prophylaxis: Subcutaneous heparin GI Prophylaxis: Pepcid Prognosis is guarded
[2021-12-25] MEDS: FAMOTIDINE 8 MG/ML ORAL.SUSP PEG/G-TUBE SCH (20:12)
--- NOTE | 2021-12-25 22:45 | P.PN ---
Subjective Progress Note Date: 12/25/21 Principal diagnosis: 1positive blood culture. 2possible ischemic bowel Patient is a 61-year-old male with a past medical history significant for MS this patient bedbound and history of recurrent UTI and pneumonia presented to hospital with abdominal distention with abnormal CT suspicious for possible ischemic bowel. On today's evaluation that is 12/25/2021 patient is afebrile, the patient is currently breathing comfortably hemodynamically stable not vomiting diarrhea or any other changes reported by nursing staff Objective - Vital Signs Vital signs: Vital Signs Temp 98.8 F 12/25/21 08:00 Pulse 73 12/25/21 08:00 Resp 16 12/25/21 08:00 BP 154/84 12/25/21 08:00 Pulse Ox 99 12/25/21 08:00 Intake & Output 12/24/21 12/25/21 12/25/21 18:59 06:59 18:59 Output Total 1300 3000 1500 Balance -1300 -3000 -1500 Output: Urine 1300 3000 1500 Uretheral (Stein) 1000 Other: Voiding Method Indwelling Catheter Indwelling Catheter Indwelling Catheter # Bowel Movements 2 - Exam GENERAL DESCRIPTION: Middle-aged male lying in bed in no distress RESPIRATORY SYSTEM: Unlabored breathing , decreased breath sounds at bases HEART: S1 S2 regular rate and rhythm , ABDOMEN: Soft , no tenderness EXTREMITIES: No edema feet - Labs CBC & Chem 7: 12/25/21 04:24 12/23/21 12:11 Labs: Abnormal Lab Results - Last 24 Hours (Table) 12/25/21 Range/Units 04:24 RBC 4.34 L (4.40-5.60) X 10*6/uL Hgb 10.2 L (13.0-17.0) g/dL Hct 36.0 L (39.6-50.0) % MCH 23.5 L (27.0-32.0) pg MCHC 28.3 L (32.0-37.0) g/dL RDW 16.8 H (11.5-14.5) % Eosinophils # 0.53 H (0.04-0.35) X 10*3/uL Microbiology - Last 24 Hours (Table) 12/24/21 12:00 Urine Culture - Final Urine,Voided 12/22/21 17:00 Blood Culture - Preliminary Blood No Growth after 48 hours 12/22/21 17:32 Blood Culture Gram Stain - Preliminary Blood Blood Culture - Preliminary Coagulase Negative Staph Assessment and Plan (1) Bacteremia Current Visit: Yes Status: Acute Code(s): R78.81 - BACTEREMIA SNOMED Code(s): 5326743 Plan: 1patient with a positive blood culture with gram-positive cocci likely coagulase-negative staph and more likely skin contaminant as the patient has no clinical disease to go along with it. 2patient with abdominal distention with abnormal CT suspicious for possible ischemic bowel however the patient does not look toxic with no fever or elevated white count will need to cover for the enteric gram-negative's. 3continue with Zosyn 3.375 g every 8 hours and gentle IV fluid Time with Patient: Less than 30
[2021-12-26] MEDS: DEXTROSE 5%-0.9% NACL 1,000 ML IV SCH (05:24)
[2021-12-26] MEDS: HEPARIN SODIUM,PORCINE/PF 5,000 UNIT/0.5 ML SYRINGE SQ SCH (07:00)
[2021-12-26] MEDS: METOPROLOL TARTRATE 50 MG TAB PEG/G-TUBE SCH (07:00)
[2021-12-26] MEDS: LACOSAMIDE 150 MG TABLET PEG/G-TUBE SCH (07:00)
[2021-12-26] MEDS: METOPROLOL TARTRATE 25 MG TAB PEG/G-TUBE SCH (07:00)
[2021-12-26] MEDS: PIPERACILLIN-TAZOBACTAM 3.375 GM in SODIUM CHLORIDE 0.9% 100 ML IVPB SCH ×2 (07:01→15:00)
[2021-12-26] MEDS: ASPIRIN 81 MG PEG/G-TUBE SCH (07:02)
[2021-12-26] MEDS: BACLOFEN 10 MG TAB PEG/G-TUBE SCH ×2 (07:03→15:00)
[2021-12-26 07:51] VITALS: RESP 18
[2021-12-26] MEDS ORDERED: SCOPOLAMINE 1.5MG/72HR PATCH TRANSDERM SCH (08:00)
[2021-12-26] MEDS ORDERED: PROPOFOL 10 MG/ML 20 ML VIAL IV ONE (09:38)
[2021-12-26] MEDS ORDERED: LIDOCAINE 1% INJ 10MG/ML (20 ML MDV) ONE (09:38)
[2021-12-26] MEDS ORDERED: IV FLUID CONTINUATION 1,000 ML IV ONE (09:39)
--- NOTE | 2021-12-26 10:57 | P.PCN ---
Date of Procedure: 12/26/21 Description of Procedure: PREOPERATIVE DIAGNOSIS: Acute anemia Multiple sclerosis Gastrostomy tube dependent POSTOPERATIVE DIAGNOSIS: Gastroesophageal reflux disease Bardales's esophagus Gastrostomy tube status Diaphragmatic hiatal hernia OPERATION: Esophagogastroduodenoscopy SURGEON: Lashonda Brody MD ANESTHESIA: MAC. INDICATIONS: The patient is a 61-year-old male who presents with anemia of unclear etiology. Benefits and risks of the procedure were described. Informed consent was obtained. DESCRIPTION: The patient was brought into the endoscopy suite and laid in the left lateral decubitus position. An Olympus gastroscope was passed along the posterior oropharynx down to the distal esophagus where the squamocolumnar junction was encountered at 32 cm from the incisors. The stomach was entered and no bile reflux was found. Additional findings are listed below. Biopsies with cold forceps were obtained of the antrum. The first through third portion of the duodenum was examined. Retroflexion of the scope confirmed Hill grade 3 lower esophageal valve. The squamocolumnar junction demonstrated LA grade D erosive esophagitis. The stomach was desufflated. The patient tolerated the procedure well. FINDINGS: Squamocolumnar junction 32 cm from the incisors. Diaphragmatic hiatus at 40 cm. Hiatal hernia, 5 cm Hill grade 3 lower esophageal valve. LA grade D erosive esophagitis, 32 cm to 40 cm No active duodenitis. Chronic gastritis Gastrostomy tube intact RECOMMENDATIONS: 1. Recommend repeat upper endoscopy in 3 years due to Bardales's esophagus
--- NOTE | 2021-12-26 11:00 | P.PCN ---
Date of Procedure: 12/26/21 Description of Procedure: PREOPERATIVE DIAGNOSIS: Acute anemia Colitis per computed tomography scan Chronic recurrent constipation POSTOPERATIVE DIAGNOSIS: Acute anemia Colitis per computed tomography scan Chronic recurrent constipation OPERATION: Colonoscopy to the cecum, ileocecal valve and appendiceal orifice SURGEON: Lashonda Brody MD. ANESTHESIA: MAC. INDICATIONS: The patient is a 61-year-old male who presents with anemia including abnormal computed tomography scan for colitis. Benefits and risks were described and informed consent was obtained by patient's sister, Dot. DESCRIPTION OF PROCEDURE: The patient had undergone attempted Golytely prep 4 L. The patient had been brought into the operating room and laid in the left lateral decubitus position. After adequate intravenous sedation, the rectum was examined with 2% lidocaine jelly. No external hemorrhoids identified. An Olympus colonoscope was gently advanced to the cecum with clear visualization of the ileocecal valve including appendiceal orifice. The prep was fair. No sigmoid diverticulosis was encountered. No active colonic bleeding was found. No intraluminal masses were identified within the colon. No colonic polyps were found. No evidence of focal colitis was found. Retroflexion of the scope demonstrated grade 1 internal hemorrhoids with recent inflammation. The colon was desufflated. The patient had tolerated the procedure well. Withdrawal time was over 6 minutes. FINDINGS: Aronchick preparation quality scale 3 (1-5) Redundant sigmoid colon requiring abdominal wall pressure Internal hemorrhoids, grade1 No thrombosed hemorrhoid identified. No arteriovenous malformations. No adenomatous polyps. No focal colitis. RECOMMENDATIONS: 1. Diet as tolerated 2. Repeat colonoscopy in 10 years, 2031 3. Upper and lower endoscopy findings notify to patient's sister Dot, power of environmental attorney, confirming no family history of colon cancer or colon polyps with routine colonoscopy screening in 10 years as described above. Plan - Discharge Summary Discharge Rx Participant: No New Discharge Prescriptions: Continue Amantadine Hcl Solution 50mg/5ml 100 mg PEG/G-TUBE DAILY Lacosamide [Vimpat] 150 mg PEG/G-TUBE Q12H Prostat 30 ml PEG/G-TUBE DAILY guaiFENesin [Mucinex] 600 mg PEG/G-TUBE Q12H Changed Lactulose 20 gm PEG/G-TUBE TID PRN #0 PRN Reason: Constipation Discontinued Scopolamine [Scopolamine 1 MG/72 HR patch] 1 patch TRANSDERM Q72H Sennosides [Senna] 17.2 mg PEG/G-TUBE HS No Action Oxybutynin Chloride [Ditropan Oral Soln] 5 mg PEG/G-TUBE Q8H Ipratropium-Albuterol Nebulize [Duoneb 0.5 mg-3 mg/3 ml Soln] 3 ml INHALATION RT-Q6H PRN PRN Reason: Shortness Of Breath Baclofen [Lioresal] 10 mg PEG/G-TUBE Q8H Cranberry Fruit Extract [Cranberry] 500 mg PEG/G-TUBE DAILY Aspirin 81 mg PEG/G-TUBE DAILY Acetaminophen Tab [Tylenol] 650 mg PEG/G-TUBE Q6H PRN MDD 3GM/24HR PRN Reason: Fever And/ Or Pain carBAMazepine [carBAMazepine Oral Susp] 200 mg PEG/G-TUBE Q12H Famotidine [Pepcid] 20 mg PEG/G-TUBE HS Magnesium Hydroxide [Milk of Magnesia Concentrate] 7,200 mg PEG/G-TUBE Q72H PRN PRN Reason: Constipation Metoprolol Tartrate [Lopressor] 25 mg PEG/G-TUBE Q12HR Metoprolol Tartrate [Lopressor] 50 mg PEG/G-TUBE Q12HR Cholecalciferol [Vitamin D3 (25 Mcg = 1000 Iu)] 25 mcg PEG/G-TUBE DAILY Levofloxacin [Levaquin] 500 mg PEG/G-TUBE DAILY Discharge Medication List Oxybutynin Chloride [Ditropan Oral Soln] 5 mg PEG/G-TUBE Q8H 09/08/19 [History] Ipratropium-Albuterol Nebulize [Duoneb 0.5 mg-3 mg/3 ml Soln] 3 ml INHALATION RT-Q6H PRN 12/16/19 [History] Baclofen [Lioresal] 10 mg PEG/G-TUBE Q8H 07/16/20 [History] Aspirin 81 mg PEG/G-TUBE DAILY 11/27/20 [History] Cranberry Fruit Extract [Cranberry] 500 mg PEG/G-TUBE DAILY 11/27/20 [History] Famotidine [Pepcid] 20 mg PEG/G-TUBE HS 03/07/21 [History] Magnesium Hydroxide [Milk of Magnesia Concentrate] 7,200 mg PEG/G-TUBE Q72H PRN 03/07/21 [History] Acetaminophen Tab [Tylenol] 650 mg PEG/G-TUBE Q6H PRN MDD 3GM/24HR 06/13/21 [History] Metoprolol Tartrate [Lopressor] 25 mg PEG/G-TUBE Q12HR 06/13/21 [History] Metoprolol Tartrate [Lopressor] 50 mg PEG/G-TUBE Q12HR 06/13/21 [History] Cholecalciferol [Vitamin D3 (25 Mcg = 1000 Iu)] 25 mcg PEG/G-TUBE DAILY 07/02/21 [History] carBAMazepine [carBAMazepine Oral Susp] 200 mg PEG/G-TUBE Q12H 07/02/21 [History] Amantadine Hcl Solution 50mg/5ml 100 mg PEG/G-TUBE DAILY 12/22/21 [History] Lacosamide [Vimpat] 150 mg PEG/G-TUBE Q12H 12/22/21 [History] Levofloxacin [Levaquin] 500 mg PEG/G-TUBE DAILY 12/22/21 [History] Prostat 30 ml PEG/G-TUBE DAILY 12/22/21 [History] guaiFENesin [Mucinex] 600 mg PEG/G-TUBE Q12H 12/22/21 [History] Lactulose 20 gm PEG/G-TUBE TID PRN #0 12/26/21 [Rx] Follow up Appointment(s)/Referral(s): Matteo Hernandez MD [Primary Care Provider] - 1-2 days Lashonda Brody MD [STAFF PHYSICIAN] - As Needed Activity/Diet/Wound Care/Special Instructions: Resume tube feeding as baseline Discharge Disposition: TRANSFER TO SNF/ECF
--- NOTE | 2021-12-26 11:27 | P.DS ---
Providers Date of admission: 12/22/21 17:48 Attending physician: Avila Ireland MD Consults: 12/22/21 17:48 Consult Physician Routine Consulting Provider: Lashonda Brody Consult Reason/Comments: Pneumatosis intestinalis, portal venous gas Do you want consulting provider notified?: Already Contacted 12/23/21 18:13 Consult Physician Routine Consulting Provider: Sonal Farah Consult Reason/Comments: POSITIVE BLOOD CULTURES - PRELIMINARY GRAM POSITIVE COCCI Do you want consulting provider notified?: Yes Primary care physician: Matteo [facility] Course: Diagnoses: -Mostly acute proctatitis with distention of the rectosigmoid junction, filled with gas and stool on CT of the A/P report -minimal intrahepatic portal venous gas with suspected occult pneumatosis of the superior aspect of the ascending colon, This could represent benign pneumatosis however focal colonic ischemia cannot be excluded. 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 He has indwelling Stein catheter. Patient is nonverbal at baseline so information obtained from staff and medical records. No family at bedside. patient sent from his care home for abdominal distention with recommendation for CAT scan. CT of the abdomen and pelvis without contrast showing suspect minimal intrahepatic portal venous gas with suspected occult pneumatosis of the superior aspect of the ascending colon, associated with minimal gas seen in the adjacent mesenteric vessels. This could represent benign pneumatosis however focal colonic ischemia cannot be excluded. No free peritoneal air. Also with wall thickening of the inferior aspect of the rectum with marked distention of the rectosigmoid junction. With gas and fecal material, associated with mild wall thickening, Patient abdomen was soft nontender, and within one day he developed large bowel movements indicating functioning bowel. Surgery team were following him closely and patient was started him on Zosyn gentle hydration. Also he underwent colonoscopy/EGD for anemia: erosive esophagitis and no colitis Because: Show no colitis, no antibiotic is dictated for this patient essentially has no fever, no elevated white cell count, no abdominal pain or other symptoms Patient was cleared for discharge by both infectious disease and surgery team Also we recommend to hold scopolamine patch as it may cause constipation and switched lactulose from scheduled goes into when necessary Positive blood culture was felt to be contaminant. However patient continued on Zosyn for his prostatitis and he was doing well clinically. Tube feeding resumed and tolerated well. Patient is back to baseline. Patient was cleared for discharge by surgery team and infectious disease Patient was found stable and can be discharged back to his ECF and guarded prognosis however he needs follow-up as an outpatient. Patient was instructed to follow up with PCP within one week and patient agrees We recommend patient follow up with Dr. Bolton in 1-2 weeks Physical exam -GENERAL: The patient is awake , non-verbal at baseline, not in any acute distress. Well developed, well nourished. HEENT: Pupils are round and equally reacting to light. EOMI. No scleral icterus. No conjunctival pallor. Normocephalic, atraumatic. No pharyngeal erythema. No thyromegaly. CARDIOVASCULAR: S1 and S2 present. No murmurs, rubs, or gallops. PULMONARY: Chest is clear to auscultation, no wheezing or crackles. -ABDOMEN: Soft, nontender, distended with no abn facial expression or facial grimace on palpation, normoactive bowel sounds. No palpable organomegaly. PEG tube on Stein catheter are in place MUSCULOSKELETAL: No joint swelling or deformity. EXTREMITIES: No cyanosis, clubbing, or pedal edema. -NEUROLOGICAL: Gross neurological examination did not reveal any focal deficits. Patient has 4 extremity contractures, nonverbal at baseline SKIN: No rashes. no petechiae. Time spent more than 35 minutes RECOMMENDATIONS: 1. Recommend repeat upper endoscopy in 3 years due to Bardales's esophagus Repeat colonoscopy in 10 years, 2031 Patient Condition at Discharge: Stable Plan - Discharge Summary Discharge Rx Participant: No New Discharge Prescriptions: Continue Oxybutynin Chloride [Ditropan Oral Soln] 5 mg PEG/G-TUBE Q8H Ipratropium-Albuterol Nebulize [Duoneb 0.5 mg-3 mg/3 ml Soln] 3 ml INHALATION RT-Q6H PRN PRN Reason: Shortness Of Breath Baclofen [Lioresal] 10 mg PEG/G-TUBE Q8H Cranberry Fruit Extract [Cranberry] 500 mg PEG/G-TUBE DAILY Aspirin 81 mg PEG/G-TUBE DAILY Acetaminophen Tab [Tylenol] 650 mg PEG/G-TUBE Q6H PRN MDD 3GM/24HR PRN Reason: Fever And/ Or Pain carBAMazepine [carBAMazepine Oral Susp] 200 mg PEG/G-TUBE Q12H Amantadine Hcl Solution 50mg/5ml 100 mg PEG/G-TUBE DAILY Lacosamide [Vimpat] 150 mg PEG/G-TUBE Q12H Famotidine [Pepcid] 20 mg PEG/G-TUBE HS Magnesium Hydroxide [Milk of Magnesia Concentrate] 7,200 mg PEG/G-TUBE Q72H PRN PRN Reason: Constipation Metoprolol Tartrate [Lopressor] 25 mg PEG/G-TUBE Q12HR Metoprolol Tartrate [Lopressor] 50 mg PEG/G-TUBE Q12HR Cholecalciferol [Vitamin D3 (25 Mcg = 1000 Iu)] 25 mcg PEG/G-TUBE DAILY Prostat 30 ml PEG/G-TUBE DAILY guaiFENesin [Mucinex] 600 mg PEG/G-TUBE Q12H Changed Lactulose 20 gm PEG/G-TUBE TID PRN #0 PRN Reason: Constipation Discontinued Scopolamine [Scopolamine 1 MG/72 HR patch] 1 patch TRANSDERM Q72H Sennosides [Senna] 17.2 mg PEG/G-TUBE HS Levofloxacin [Levaquin] 500 mg PEG/G-TUBE DAILY Discharge Medication List Oxybutynin Chloride [Ditropan Oral Soln] 5 mg PEG/G-TUBE Q8H 09/08/19 [History] Ipratropium-Albuterol Nebulize [Duoneb 0.5 mg-3 mg/3 ml Soln] 3 ml INHALATION RT-Q6H PRN 12/16/19 [History] Baclofen [Lioresal] 10 mg PEG/G-TUBE Q8H 07/16/20 [History] Aspirin 81 mg PEG/G-TUBE DAILY 11/27/20 [History] Cranberry Fruit Extract [Cranberry] 500 mg PEG/G-TUBE DAILY 11/27/20 [History] Famotidine [Pepcid] 20 mg PEG/G-TUBE HS 03/07/21 [History] Magnesium Hydroxide [Milk of Magnesia Concentrate] 7,200 mg PEG/G-TUBE Q72H PRN 03/07/21 [History] Acetaminophen Tab [Tylenol] 650 mg PEG/G-TUBE Q6H PRN MDD 3GM/24HR 06/13/21 [History] Metoprolol Tartrate [Lopressor] 25 mg PEG/G-TUBE Q12HR 06/13/21 [History] Metoprolol Tartrate [Lopressor] 50 mg PEG/G-TUBE Q12HR 06/13/21 [History] Cholecalciferol [Vitamin D3 (25 Mcg = 1000 Iu)] 25 mcg PEG/G-TUBE DAILY 07/02/21 [History] carBAMazepine [carBAMazepine Oral Susp] 200 mg PEG/G-TUBE Q12H 07/02/21 [History] Amantadine Hcl Solution 50mg/5ml 100 mg PEG/G-TUBE DAILY 12/22/21 [History] Lacosamide [Vimpat] 150 mg PEG/G-TUBE Q12H 12/22/21 [History] Prostat 30 ml PEG/G-TUBE DAILY 12/22/21 [History] guaiFENesin [Mucinex] 600 mg PEG/G-TUBE Q12H 12/22/21 [History] Lactulose 20 gm PEG/G-TUBE TID PRN #0 12/26/21 [Rx] Follow up Appointment(s)/Referral(s): Matteo Hernandez MD [Primary Care Provider] - 1-2 days Lashonda Brody MD [STAFF PHYSICIAN] - As Needed Activity/Diet/Wound Care/Special Instructions: Resume tube feeding as baseline Discharge Disposition: TRANSFER TO SNF/ECF
--- NOTE | 2021-12-26 12:41 | CDI ---
Documentation Clarification Form Date: 12/26/2021 12:27:35 PM From: Jaja AndersEspañaDARRON cote, CCDS Admit Date: 12/22/2021 05:48:00 PM Patient Name: Chris Marvin Visit Number: [id number] Discharge Date: ATTENTION: The Clinical Documentation Specialists (CDI) and [facility] Coding Staff appreciate your assistance in clarifying documentation. Please respond to the clarification below the line at the bottom and electronically sign. The CDI & [facility] Coding staff will review the response and follow-up if needed. Please note: Queries are made part of the Legal Health Record. If you have any questions, please contact the author of this message via ITS. Dr. Avila Bardales. Sheet: This patient has documented Severe Multiple Sclerosis, is Bedridden, nonverbal at baseline from a Retirement and has documented contractures of all four extremities in the 12/23 History & Physical and in subsequent Progress Notes. Based on this information and the findings below, is there an additional diagnosis that is clinically appropriate for this patient? History/Risk Factors per the 12/23 H/P: DVT, GERD, Hypertension, MS, Pneumonia, Seizure Disorder, PEG tube, Contractures, Neuralgia, Dysarthria, Neurogenic Bladder with IDC & UTIs, Incontinent w/history of Decubitus Ulcer: Coccyx, Home O2 2Lnc. Clinical Indicators: Presented to the ED on 12/22 from a Retirement via EMS with Altered Mental Status, Abdominal Distention and History of Recurrent Pneumonia. Admit with Abdominal Distention, Pneumatosis Intestinalis. 12/22 VS: Stable 12/22 LAB: Hgb 12.5, Eos 0.8; Na 135 12/24 UA: Clear, Large esterase, RBC 7, WBC 44. 12/22 CXR: Mild linear opacities right lung base. Correlate for atelectasis and pneumonia. 12/22 CT Abdomen/Pelvis: Suspected pneumatosis of the ascending colon, could be colonic ischemia. Stercoral colitis not excluded. Treatment 12/22/12/23: Daily weights, HOB elevated, I&Os, Enteral Tube Feeding, Blood culture, O2 2Lnc, IV Zosyn, IV Dilaudid, Home meds via PEG tube. Is there an additional diagnosis that is clinically appropriate for this patient? [ ] Functional Quadriplegia [ ] Complete Immobility due to frailty/severe debility [ ] Generalized weakness: (please specify etiology if known) [ ] Other (please specify) [ ] Unable to determine (Template Last Revised: November 2020) Functional Quadriplegia secondary to his h/o degenerative brain disease MTDD
[2021-12-26 13:37] VITALS: BMI 25.7
--- NOTE | 2021-12-26 14:04 | XR ---
EXAMINATION TYPE: XR chest 1V portable DATE OF EXAM: 12/26/2021 COMPARISON: Chest x-ray 12/22/2021 HISTORY: Cough, congestion TECHNIQUE: Single frontal view of the chest is obtained. FINDINGS: There is no focal air space opacity, pleural effusion, or pneumothorax seen. There is altagracia e improvement in aeration with just minimal strand-like density in the right midlung. Lung volumes ar e low. Patient is mildly rotated. The cardiac silhouette size is within normal limits. The osseous structures are intact. Determined linear density is present over the patient's midline in the xiphoid region. IMPRESSION: There is some improvement in aeration
[2021-12-26 15:46] VITALS: BP 164/90; PULSE 65; TEMP 98.4
[2021-12-26] MEDS ORDERED: FAMOTIDINE 20 MG TAB PEG/G-TUBE SCH (21:00)
== END 2021-12-26 17:51 | DRG 393 ==
LOC: EC 12:48 → 4SSUR 17:48
PROVIDERS: ADMIT Internal Medicine; ATTEND Internal Medicine
PROC: 0DJD8ZZ Inspection of Lower Intestinal Tract, Via Natural or Artificial Opening Endoscopic (ICD-10-PCS; principal; 2021-12-26 08:05)
PROC: 0DB68ZX Excision of Stomach, Via Natural or Artificial Opening Endoscopic, Diagnostic (ICD-10-PCS; 2021-12-26 08:05)
DX: K63.89 Other specified diseases of intestine (principal); R53.2 Functional quadriplegia; F20.2 Catatonic schizophrenia; F32.A Depression, unspecified; G35 Multiple sclerosis; G40.909 Epilepsy, unspecified, not intractable, without status epilepticus; I10 Essential (primary) hypertension; K21.00 Gastro-esophageal reflux disease with esophagitis, without bleeding; K29.50 Unspecified chronic gastritis without bleeding; N31.9 Neuromuscular dysfunction of bladder, unspecified; N41.9 Inflammatory disease of prostate, unspecified; Z74.01 Bed confinement status; K22.70 Barrett's esophagus without dysplasia; K44.9 Diaphragmatic hernia without obstruction or gangrene; K64.8 Other hemorrhoids; D64.9 Anemia, unspecified; M19.90 Unspecified osteoarthritis, unspecified site; K59.09 Other constipation; Z86.718 Personal history of other venous thrombosis and embolism; Z87.01 Personal history of pneumonia (recurrent); Z87.440 Personal history of urinary (tract) infections; Z93.1 Gastrostomy status; Z79.01 Long term (current) use of anticoagulants; Z79.82 Long term (current) use of aspirin; Z79.899 Other long term (current) drug therapy; Z87.828 Personal history of other (healed) physical injury and trauma; Z98.890 Other specified postprocedural states; Z88.8 Allergy status to other drugs, medicaments and biological substances; Z86.14 Personal history of Methicillin resistant Staphylococcus aureus infection; Z82.49 Family history of ischemic heart disease and other diseases of the circulatory system
CPT/HCPCS: 36415; 43235; 45378; 71045; 74019; 74176; 80048; 80053; 81001; 83605; 85025; 87040; 87086; 93005; 96365; 99285

== ENCOUNTER 2022-01-13 18:46 | Emergency (ER) | payer MEDICARE, OTHER ==
--- NOTE | 2022-01-13 20:08 | XR ---
EXAMINATION TYPE: XR chest 2V DATE OF EXAM: 01/13/2022 COMPARISON: 12/26/2021 HISTORY: Cough and congestion TECHNIQUE: 2 views FINDINGS: Heart is normal. Lungs are clear of consolidation. There is some mild linear density in the midlung prater. No hilar mass. There is no pleural effusion. Bony thorax is intact. IMPRESSION: There is subsegmental atelectasis increased compared to last exam. No heart failure
[2022-01-13 20:34] LABS: Basophils # (A) 0.1 k/uL (0-0.2); Basophils % (A) 1 %; Eosinophils % (A) 11 %; HCT 37.4 % (39.0-53.0); HGB 11.1 gm/dL (13.0-17.5); Hypochromasia Marked; Lymphocytes # (A) 1.7 k/uL (1.0-4.8); Lymphocytes % (A) 19 %; MCH 24.1 pg (25.0-35.0); MCHC 29.8 g/dL (31.0-37.0); Mean Platelet Volume 7.7; Monocytes # (A) 0.5 k/uL (0-1.0); Monocytes % (A) 6 %; Neutrophils # (A) 5.4 k/uL (1.3-7.7); Neutrophils % (A) 61 %; Platelet Count 428 k/uL (150-450); RBC 4.62 m/uL (4.30-5.90); RDW 15.9 % (11.5-15.5); WBC 8.8 k/uL (3.8-10.6)
[2022-01-13 20:47] LABS: ALT 42 U/L (4-49); AST 34 U/L (17-59); African American GFR (CKD) >90 (>60 ml/min/1.73 sqM); Albumin 3.4 g/dL (3.5-5.0); Alkaline Phosphatase 97 U/L (38-126); Anion Gap 8 mmol/L; Blood Urea Nitrogen 23 mg/dL (9-20); Calcium 8.4 mg/dL (8.4-10.2); Carbon Dioxide 23 mmol/L (22-30); Chloride 105 mmol/L (98-107); Glucose 90 mg/dL (74-99); Lipase 154 U/L (23-300); Non-African American GFR(CKD) >90 (>60 ml/min/1.73 sqM); Potassium 4.6 mmol/L (3.5-5.1); Sodium 136 mmol/L (137-145); Total Bilirubin 0.3 mg/dL (0.2-1.3); Total Protein 6.5 g/dL (6.3-8.2)
[2022-01-13 21:14] LABS: Appearance,Urine Clear (Clear); Bilirubin,Urine Negative (Negative); Blood,Urine Negative (Negative); Color,Urine Yellow; Glucose,Urine (UA) Negative (Negative); Ketones,Urine Negative (Negative); Leukocyte Esterase,Urine Trace (Negative); Mucus,Urine Rare /hpf; Nitrite,Urine Negative (Negative); PH, Urine 6.5 (5.0-8.0); Protein,Urine Negative (Negative); RBC,Urine <1 /hpf (0-5); Urobilinogen,Urine <2.0 mg/dL (<2.0); WBC,Urine 1 /hpf (0-5)
--- NOTE | 2022-01-13 21:37 | ED ---
Abdominal Pain HPI - General Source: EMS Mode of arrival: EMS Limitations: language barrier, physical limitation <Kimmy Dye - Last Filed: 01/13/22 21:36> <Kris Canada - Last Filed: 01/13/22 22:57> - General Chief Complaint: Abdominal Pain Stated Complaint: bowel obstruction - History of Present Illness Initial Comments: 61-year-old male with past medical history of MS presents to the emergency department from [facility]. Patient is nonverbal and therefore cannot provide a history. He is sent for CT. He has had increased abdominal swelling and an x- ray was performed which demonstrated possible bowel obstruction. Patient was recently hospitalized from December 22- for similar. No report of any fevers. Bowel movement noted in the patients brief. Patient cannot provide any history and therefore the HPI is limited (Kimmy Dye) - Related Data Home Medications Medication Instructions Recorded Confirmed Oxybutynin Chloride [Ditropan Oral 5 mg PEG/G-TUBE Q8H 09/08/19 01/13/22 Soln] Ipratropium-Albuterol Nebulize 3 ml INHALATION RT-Q6H 12/16/19 01/13/22 [Duoneb 0.5 mg-3 mg/3 ml Soln] Baclofen [Lioresal] 10 mg PEG/G-TUBE Q8H 07/16/20 01/13/22 Aspirin 81 mg PEG/G-TUBE DAILY 11/27/20 01/13/22 Cranberry Fruit Extract [Cranberry] 500 mg PEG/G-TUBE DAILY 11/27/20 01/13/22 Famotidine [Pepcid] 20 mg PEG/G-TUBE HS 03/07/21 01/13/22 Magnesium Hydroxide [Milk of 7,200 mg PEG/G-TUBE Q72H PRN 03/07/21 01/13/22 Magnesia Concentrate] Acetaminophen Tab [Tylenol] 650 mg PEG/G-TUBE Q6H PRN MDD 06/13/21 01/13/22 3GM/24HR Metoprolol Tartrate [Lopressor] 25 mg PEG/G-TUBE Q12H 06/13/21 01/13/22 Metoprolol Tartrate [Lopressor] 50 mg PEG/G-TUBE Q12H 06/13/21 01/13/22 Cholecalciferol [Vitamin D3 (25 25 mcg PEG/G-TUBE DAILY 07/02/21 01/13/22 Mcg = 1000 Iu)] carBAMazepine [carBAMazepine Oral 200 mg PEG/G-TUBE Q12H 07/02/21 01/13/22 Susp] Amantadine Hcl Solution 50mg/5ml 100 mg PEG/G-TUBE DAILY 12/22/21 01/13/22 guaiFENesin [Mucinex] 600 mg PEG/G-TUBE Q12H 12/22/21 01/13/22 Lactulose 20 gm PEG/G-TUBE TID 01/03/22 01/13/22 Scopolamine [Scopolamine 1 MG/72 1 patch TRANSDERM Q72H 01/03/22 01/13/22 HR patch] Previous Rx's Medication Instructions Recorded Lacosamide [Vimpat] 150 mg PEG/G-TUBE Q12H #4 tab 12/26/21 Allergies Allergy/AdvReac Type Severity Reaction Status Date / Time meropenem [From Merrem] Allergy Rash/Hives Verified 01/13/22 20:54 Review of Systems ROS Other: All systems not noted in ROS Statement are negative. <Kimmy Dye - Last Filed: 01/13/22 21:36> ROS Other: All systems not noted in ROS Statement are negative. <Kris Canada - Last Filed: 01/13/22 22:57> ROS Statement: Those systems with pertinent positive or pertinent negative responses have been documented in the HPI. Past Medical History Past Medical History: Deep Vein Thrombosis (DVT), GERD/Reflux, Hypertension, Musculoskeletal Disorder, Neurologic Disorder, Pneumonia, Seizure Disorder, Skin Disorder Additional Past Medical History / Comment(s): Pt diagnosed with MS at the age of 39 yrs, eizure/pneumonia/UTI with sepsis/respirtory failure/vented, cognitive impairment, sister states when he is feeling well he could speak a few words/nod head appropriately/give thumbs up/roll eyes but when ill is nonverbal, pt has dysphagia/NPO with peg tube, contractures, last seizure 07/2020, trigeminal neuralgia, dysarthria/anarthria/neurogenic bladder with IDC-UTIs/sepsis, multiple pneumonias, recent seizure-last one 07/03/20, incontinent of stool, pt has had decubitus ulcer coccyx-sister unsure of skin condition at this time, past anemia r/t heparin/epistaxiis which involved nasal packing/transfusions, DVT bilateral arms, hypoxia, oxygen at 2L/NC, L femoral head fracture History of Any Multi-Drug Resistant Organisms: ESBL, MRSA, Other MDRO Date of last positivie culture/infection: 03/09/21-MRSA; 11/23/19 ESBL-E.coli MDRO Source:: Abdomen-Peg site MRSA; Urine -ESBL Past Surgical History: Tonsillectomy Additional Past Surgical History / Comment(s): Gastrostomy, peg tube, I&D coccyx decubitius, bronchoscopy, bilateral lasik eye surgery. Past Anesthesia/Blood Transfusion Reactions: No Reported Reaction Additional Past Anesthesia/Blood Transfusion Reaction / Comment(s): Pt has rece ived blood in past without reaction. Past Psychological History: Depression Smoking Status: Never smoker Past Alcohol Use History: None Reported Past Drug Use History: None Reported - Past Family History Father Family Medical History: Myocardial Infarction (AL) Mother Family Medical History: Hypertension, Myocardial Infarction (AL) Additional Family Medical History / Comment(s): Mother of a AL at the age of 73 yrs. <Kimmy Dye - Last Filed: 01/13/22 21:36> General Exam Limitations: language barrier, physical limitation <Kimmy Dye - Last Filed: 01/13/22 21:36> Course Vital Signs 01/13/22 18:50 Pulse Rate 98 Respiratory 20 Rate Blood Pressure 133/80 O2 Sat by Pulse 98 Oximetry Medical Decision Making - Lab Data Result diagrams: 01/13/22 19:33 01/13/22 19:33 <Kimmy Dye - Last Filed: 01/13/22 21:36> - Lab Data Result diagrams: 01/13/22 19:33 01/13/22 19:33 <Kris Canada - Last Filed: 01/13/22 22:57> - Medical Decision Making Renal patient is placed into room 24. A thorough history and physical exam is performed. IV access established laboratory studies were conducted. Laboratory studies are reviewed and are within normal limits. Patient sent for CT which is pending at this time. Case will be signed out to Dr. Canada. (Kimmy Dye) - Lab Data Lab Results 01/13/22 01/13/2201/13/22 Range/Units 19:33 19:33 19:33 WBC 8.8 (3.8-10.6) k/uL RBC 4.62 (4.30-5.90) m/uL Hgb 11.1 L (13.0-17.5) gm/dL Hct 37.4 L (39.0-53.0) % MCV 81.0 (80.0-100.0) fL MCH 24.1 L (25.0-35.0) pg MCHC 29.8 L (31.0-37.0) g/dL RDW 15.9 H (11.5-15.5) % Plt Count 428 (150-450) k/uL MPV 7.7 Neutrophils % 61 % Lymphocytes % 19 % Monocytes % 6 % Eosinophils % 11 % Basophils % 1 % Neutrophils # 5.4 (1.3-7.7) k/uL Lymphocytes # 1.7 (1.0-4.8) k/uL Monocytes # 0.5 (0-1.0) k/uL Eosinophils # 1.0 H (0-0.7) k/uL Basophils # 0.1 (0-0.2) k/uL Hypochromasia Marked Sodium 136 L (137-145) mmol/L Potassium 4.6 (3.5-5.1) mmol/L Chloride 105 (98-107) mmol/L Carbon Dioxide 23 (22-30) mmol/L Anion Gap 8 mmol/L BUN 23 H (9-20) mg/dL Creatinine 0.70 (0.66-1.25) mg/dL Est GFR (CKD-EPI)AfAm >90 (>60 ml/min/1.73 sqM) Est GFR (CKD-EPI)NonAf >90 (>60 ml/min/1.73 sqM) Glucose 90 (74-99) mg/dL Plasma Lactic Acid [place] (0.7-2.0) mmol/L Calcium 8.4 (8.4-10.2) mg/dL Total Bilirubin 0.3 (0.2-1.3) mg/dL AST 34 (17-59) U/L ALT 42 (4-49) U/L Alkaline Phosphatase 97 (38-126) U/L Total Protein 6.5 (6.3-8.2) g/dL Albumin 3.4 L (3.5-5.0) g/dL Lipase 154 (23-300) U/L Urine Color Yellow Urine Appearance Clear (Clear) Urine pH 6.5 (5.0-8.0) Ur Specific [place] 1.020 (1.001-1.035) Urine Protein Negative (Negative) Urine Glucose (UA) Negative (Negative) Urine Ketones Negative (Negative) Urine Blood Negative (Negative) Urine Nitrite Negative (Negative) Urine Bilirubin Negative (Negative) Urine Urobilinogen <2.0 (<2.0) mg/dL Ur Leukocyte Esterase Trace H (Negative) Urine RBC <1 (0-5) /hpf Urine WBC 1 (0-5) /hpf Urine Mucus Rare H (None) /hpf 01/13/22 Range/Units 19:33 WBC (3.8-10.6) k/uL RBC (4.30-5.90) m/uL Hgb (13.0-17.5) gm/dL Hct (39.0-53.0) % MCV (80.0-100.0) fL MCH (25.0-35.0) pg MCHC (31.0-37.0) g/dL RDW (11.5-15.5) % Plt Count (150-450) k/uL MPV Neutrophils % % Lymphocytes % % Monocytes % % Eosinophils % % Basophils % % Neutrophils # (1.3-7.7) k/uL Lymphocytes # (1.0-4.8) k/uL Monocytes # (0-1.0) k/uL Eosinophils # (0-0.7) k/uL Basophils # (0-0.2) k/uL Hypochromasia Sodium (137-145) mmol/L Potassium (3.5-5.1) mmol/L Chloride (98-107) mmol/L Carbon Dioxide (22-30) mmol/L Anion Gap mmol/L BUN (9-20) mg/dL Creatinine (0.66-1.25) mg/dL Est GFR (CKD-EPI)AfAm (>60 ml/min/1.73 sqM) Est GFR (CKD-EPI)NonAf (>60 ml/min/1.73 sqM) Glucose (74-99) mg/dL Plasma Lactic Acid [place] 1.2 (0.7-2.0) mmol/L Calcium (8.4-10.2) mg/dL Total Bilirubin (0.2-1.3) mg/dL AST (17-59) U/L ALT (4-49) U/L Alkaline Phosphatase (38-126) U/L Total Protein (6.3-8.2) g/dL Albumin (3.5-5.0) g/dL Lipase (23-300) U/L Urine Color Urine Appearance (Clear) Urine pH (5.0-8.0) Ur Specific [place] (1.001-1.035) Urine Protein (Negative) Urine Glucose (UA) (Negative) Urine Ketones (Negative) Urine Blood (Negative) Urine Nitrite (Negative) Urine Bilirubin (Negative) Urine Urobilinogen (<2.0) mg/dL Ur Leukocyte Esterase (Negative) Urine RBC (0-5) /hpf Urine WBC (0-5) /hpf Urine Mucus (None) /hpf Disposition <Kimmy Dye - Last Filed: 01/13/22 21:36> Is patient prescribed a controlled substance at d/c from ED?: No <Kris Canada - Last Filed: 01/13/22 22:57> Clinical Impression: Abdominal distention Disposition: HOME SELF-CARE Condition: Fair Instructions (If sedation given, give patient instructions): Bowel Management Program After Spinal Cord Injury (DC) Referrals: None,Stated [Primary Care Provider] - 1-2 days
--- NOTE | 2022-01-13 21:56 | CT ---
EXAMINATION TYPE: CT abdomen pelvis w con DATE OF EXAM: 01/13/2022 COMPARISON: 12/22/2021 HISTORY: Abnormal xray, possible bowel obstruction CT DLP: 1471.2 mGycm Automated exposure control for dose reduction was used. CONTRAST: Performed with IV Contrast, patient injected with 100 mL of Isovue 300. there is some mild subsegmental atelectasis at the lung bases. There is coronary artery calcification . There is no pericardial effusion. No pleural effusion. Liver spleen stomach appear intact. There is no pancreatic mass. Gallbladder appears normal. The bile ducts are not dilated. There is no adrenal mass. Kidneys show satisfactory contrast opacification. There is no hydronephrosi s. Ureters are not dilated. There is no retroperitoneal adenopathy. There is a Stein catheter in the urinary bladder. The appendix is lateral and appears normal. There is no mesenteric edema. No ascites or free air. No bowel obstruction. 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 The pe lvic ring is intact. Proximal right femur is intact. Lumbar spine is intact. No compression fracture. IMPRESSION: No acute abnormality in the abdomen and pelvis. Normal appendix. Mild subsegmental atelectasis at the lung bases. There is clearing of the rectal fecal impaction compared to the old exam. There is clear ing of the portal venous gas compared to the old exam. No evidence of bowel obstruction.
[2022-01-13 23:15] VITALS: BP 143/72; PULSE 90; RESP 18
== END 2022-01-13 23:49 | disposition home or self-care (01) ==
LOC: EC 18:46
DX: R14.0 Abdominal distension (gaseous) (principal); I10 Essential (primary) hypertension; K21.9 Gastro-esophageal reflux disease without esophagitis; G40.909 Epilepsy, unspecified, not intractable, without status epilepticus; F32.A Depression, unspecified; Z79.82 Long term (current) use of aspirin; Z79.899 Other long term (current) drug therapy
CPT/HCPCS: 36415; 80053; 83605; 83690; 85025; 81001; 71046; 74177; 99284; Q9967

== ENCOUNTER 2022-03-23 18:53 | Inpatient (IN) | payer MEDICARE, OTHER ==
[2022-03-23] MEDS ORDERED: ACETAMINOPHEN ORAL SUSP 160 MG/5 ML CUP PEG/G-TUBE ONE (19:36)
[2022-03-23 21:58] LABS: Anisocytosis Slight; Basophils # (A) 0.1 k/uL (0-0.2); Basophils % (A) 1 %; Eosinophils # (A) 0.5 k/uL (0-0.7); Eosinophils % (A) 5 %; HCT 40.4 % (39.0-53.0); HGB 11.9 gm/dL (13.0-17.5); Hypochromasia Marked; Lymphocytes # (A) 1.1 k/uL (1.0-4.8); Lymphocytes % (A) 12 %; MCH 22.5 pg (25.0-35.0); MCHC 29.5 g/dL (31.0-37.0); MCV 76.4 fL (80.0-100.0); Mean Platelet Volume 7.2; Microcytosis Slight; Monocytes # (A) 0.5 k/uL (0-1.0); Monocytes % (A) 5 %; Neutrophils # (A) 7.2 k/uL (1.3-7.7); Neutrophils % (A) 74 %; Platelet Count 336 k/uL (150-450); RBC 5.28 m/uL (4.30-5.90); RDW 17.3 % (11.5-15.5); WBC 9.8 k/uL (3.8-10.6)
[2022-03-23] MEDS ORDERED: SODIUM CHLORIDE 0.9% 1,000 ML IV STA ×2 (22:21→23:12)
[2022-03-23 22:30] LABS: Amorphous Sediment,Urine Rare /hpf; Appearance,Urine Cloudy (Clear); Bacteria,Urine Occasional /hpf; Bilirubin,Urine Negative (Negative); Blood,Urine Negative (Negative); Color,Urine Yellow; Glucose,Urine (UA) Negative (Negative); Hyaline Casts,Urine 4 /lpf (0-2); Ketones,Urine Negative (Negative); Leukocyte Esterase,Urine Large (Negative); Mucus,Urine Rare /hpf; Nitrite,Urine Positive (Negative); Protein,Urine Negative (Negative); RBC,Urine 3 /hpf (0-5); Specific Gravity,Urine 1.014 (1.001-1.035); Squamous Epithelial Cell,Urine <1 /hpf (0-4); Urobilinogen,Urine <2.0 mg/dL (<2.0); WBC,Urine 21 /hpf (0-5)
[2022-03-23 22:44] LABS: INR 1.1 (<1.2); Partial Thromboplastin Time 26.7 sec (22.0-30.0); Prothrombin Time 11.3 sec (9.0-12.0)
--- NOTE | 2022-03-23 22:52 | XR ---
EXAMINATION TYPE: XR KUB DATE OF EXAM: 03/23/2022 COMPARISON: 12/25/2021 HISTORY: Abdominal distention TECHNIQUE: 3 views FINDINGS: There is no evidence of pneumoperitoneum. There is multiple gas distended loops of large karen wel and also retained fecal material in the large bowel. There is apparent gastrostomy tube over the mid abdomen. There is old ununited left femoral neck fracture. IMPRESSION: There is evidence for some constipation and large bowel ileus. No free air. Fecal materia l increased compared to old exam. Large bowel gas increased.
--- NOTE | 2022-03-23 22:55 | XR ---
EXAMINATION TYPE: XR chest 2V DATE OF EXAM: 03/23/2022 COMPARISON: 01/13/2022 HISTORY: Difficulty breathing TECHNIQUE: 2 views FINDINGS: There is some mild atelectasis at the right lower lung field. No heart failure. There is co arsening of interstitial markings. No pleural effusion. Heart size is normal. IMPRESSION: Subsegmental atelectasis and scarring of the right lung. Normal heart. No change compared to old exam.
--- NOTE | 2022-03-23 23:22 | ED ---
General Adult HPI - General Chief complaint: Shortness of Breath Stated complaint: Abnormal Xrays Time Seen by Provider: 03/23/22 19:25 Source: EMS, RN notes reviewed, old records reviewed Mode of arrival: EMS Limitations: language barrier - History of Present Illness Initial comments: Patient is a 61-year-old male who presents from his nursing facility over concern for noisy breathing. They have noticed that the patient has a "gargling sound" when he breathes. Activation is nonverbal and cannot provide any form of history. He has a PEG tube. His a Aggarwal catheter in place. Urine does appear slightly cloudy. His abdomen is mildly distended. Per EMS and nursing facility, he has been having noisy breathing over the last day or so. They were concerned for CHF or pneumonia. Started him on levofloxacin but brought him to the emergency department for further evaluation today. Vital signs otherwise have remained stable. Has had low-grade fevers of 99 -100. I did speak with the patient's guardian, Dot, who corroborated story. She w ould like the patient evaluated for infection or possible heart failure. She states that the patient has had a intermittently distended abdomen, however has been having good bowel movements per that facility. No other acute complaints at this time. - Related Data Home Medications Medication Instructions Recorded Confirmed Oxybutynin Chloride [Ditropan Oral 5 mg PEG/G-TUBE Q8H 09/08/19 01/13/22 Soln] Ipratropium-Albuterol Nebulize 3 ml INHALATION RT-Q6H 12/16/19 01/13/22 [Duoneb 0.5 mg-3 mg/3 ml Soln] Baclofen [Lioresal] 10 mg PEG/G-TUBE Q8H 07/16/20 01/13/22 Aspirin 81 mg PEG/G-TUBE DAILY 11/27/20 01/13/22 Cranberry Fruit Extract [Cranberry] 500 mg PEG/G-TUBE DAILY 11/27/20 01/13/22 Famotidine [Pepcid] 20 mg PEG/G-TUBE HS 03/07/21 01/13/22 Magnesium Hydroxide [Milk of 7,200 mg PEG/G-TUBE Q72H PRN 03/07/21 01/13/22 Magnesia Concentrate] Acetaminophen Tab [Tylenol] 650 mg PEG/G-TUBE Q6H PRN MDD 06/13/21 01/13/22 3GM/24HR Metoprolol Tartrate [Lopressor] 25 mg PEG/G-TUBE Q12H 06/13/21 01/13/22 Metoprolol Tartrate [Lopressor] 50 mg PEG/G-TUBE Q12H 06/13/21 01/13/22 Cholecalciferol [Vitamin D3 (25 25 mcg PEG/G-TUBE DAILY 07/02/21 01/13/22 Mcg = 1000 Iu)] carBAMazepine [carBAMazepine Oral 200 mg PEG/G-TUBE Q12H 07/02/21 01/13/22 Susp] Amantadine Hcl Solution 50mg/5ml 100 mg PEG/G-TUBE DAILY 12/22/21 01/13/22 guaiFENesin [Mucinex] 600 mg PEG/G-TUBE Q12H 12/22/21 01/13/22 Lactulose 20 gm PEG/G-TUBE TID 01/03/22 01/13/22 Scopolamine [Scopolamine 1 MG/72 1 patch TRANSDERM Q72H 01/03/22 01/13/22 HR patch] Previous Rx's Medication Instructions Recorded Lacosamide [Vimpat] 150 mg PEG/G-TUBE Q12H #4 tab 12/26/21 Allergies Allergy/AdvReac Type Severity Reaction Status Date / Time meropenem [From Merrem] Allergy Rash/Hives Verified 01/13/22 20:54 Review of Systems ROS Statement: Those systems with pertinent positive or pertinent negative responses have been documented in the HPI. ROS Other: All systems not noted in ROS Statement are negative. Past Medical History Past Medical History: Deep Vein Thrombosis (DVT), GERD/Reflux, Hypertension, Musculoskeletal Disorder, Neurologic Disorder, Pneumonia, Seizure Disorder, Skin Disorder Additional Past Medical History / Comment(s): Pt diagnosed with MS at the age of 39 yrs, eizure/pneumonia/UTI with sepsis/respirtory failure/vented, cognitive impairment, sister states when he is feeling well he could speak a few words/nod head appropriately/give thumbs up/roll eyes but when ill is nonverbal, pt has dysphagia/NPO with peg tube, contractures, last seizure 07/2020, trigeminal neuralgia, dysarthria/anarthria/neurogenic bladder with IDC-UTIs/sepsis, multiple pneumonias, recent seizure-last one 07/03/20, incontinent of stool, pt has had decubitus ulcer coccyx-sister unsure of skin condition at this time, past anemia r/t heparin/epistaxiis which involved nasal packing/transfusions, DVT bilateral arms, hypoxia, oxygen at 2L/NC, L femoral head fracture History of Any Multi-Drug Resistant Organisms: ESBL, MRSA, Other MDRO Date of last positivie culture/infection: 03/09/21-MRSA; 11/23/19 ESBL-E.coli MDRO Source:: Abdomen-Peg site MRSA; Urine -ESBL Past Surgical History: Tonsillectomy Additional Past Surgical History / Comment(s): Gastrostomy, peg tube, I&D coccyx decubitius, bronchoscopy, bilateral lasik eye surgery. Past Anesthesia/Blood Transfusion Reactions: No Reported Reaction Additional Past Anesthesia/Blood Transfusion Reaction / Comment(s): Pt has received blood in past without reaction. Past Psychological History: Depression Smoking Status: Never smoker Past Alcohol Use History: None Reported Past Drug Use History: None Reported - Past Family History Father Family Medical History: Myocardial Infarction (SD) Mother Family Medical History: Hypertension, Myocardial Infarction (SD) Additional Family Medical History / Comment(s): Mother of a SD at the age of 73 yrs. General Exam - General Exam Comments Initial Comments: General: Appears in no acute distress. HEAD: Normal with no signs of head trauma. EYES: PERRLA, EOMI, conjunctiva normal, no discharge. ENT: Hearing grossly intact. Noisy respirations, coming primarily from the oropharynx. Concern for some mild aspiration. RESPIRATORY: Clear breath sounds bilaterally. No wheezes, rales, or rhonchi. C/V: Regular rate and rhythm. S1 and S2 auscultated, no edema, peripheral puls es 2+ and intact throughout ABD: Tenderness somewhat distended. Nontender. PEG tube is intact.Urine in aggarwal is cloudy. EXT: Normal range of motion, no obvious deformity SKIN: Stage I-II decubitus ulcer located over the sacrum. NEURO: Nonverbal at baseline. Difficult to obtain an accurate neurological exam. Limitations: language barrier Course Vital Signs 03/23/22 18:58 Temperature 99.3 F Pulse Rate 86 Respiratory 24 Rate Blood Pressure 127/93 O2 Sat by Pulse 96 Oximetry Medical Decision Making - Medical Decision Making Based on the patient's presentation and physical exam, I am concerned for possible infectious etiology for his current symptoms versus cardiac. We will obtain laboratory studies to evaluate for both. This includes flu, Covid. Chest x-ray, electrolytes, troponin, EKG. The patient's guardian is in agreement this plan. EKG shows no signs of acute ischemia. Chest x-ray reveals chronic findings with no signs of acute cardiopulmonary process. Abdominal x-ray does show distention and signs of constipation without free air. Per nursing facility, patient has been having bowel movements over the last few days. Low suspicion for obstruction at this time based on this history and we will continue to monitor. Laboratory studies are remarkable for a urinary tract infection with positive nitrates, leukocyte esterase present, as well as WBCs and bacteria. COVID and flu are negative. Lactic acid is mildly elevated at 2.8. BNP is within normal limits for patient's age. There was a long delay in obtaining electrolytes. I did update the patient's guardian, Dot explained that I really like to admit the patient for IV fluids and hydration in addition to Aggarwal replacement and IV antibiotics for a UTI, as he does have frequent visits for these. She was in agreement this plan. Was started on IV cefepime. Was started on IV fluids. We'll continue to evaluate. I spoke with the admitting physician Dr. Schmidt who was in agreement this plan. - Lab Data Result diagrams: 03/23/22 21:47 Lab Results 03/23/22 03/23/22 03/23/22 Range/Units 21:47 21:47 21:47 WBC 9.8 (3.8-10.6) k/uL RBC 5.28 (4.30-5.90) m/uL Hgb 11.9 L (13.0-17.5) gm/dL Hct 40.4 (39.0-53.0) % MCV 76.4 L (80.0-100.0) fL MCH 22.5 L (25.0-35.0) pg MCHC 29.5 L (31.0-37.0) g/dL RDW 17.3 H (11.5-15.5) % Plt Count 336 (150-450) k/uL MPV 7.2 Neutrophils % 74 % Lymphocytes % 12 % Monocytes % 5 % Eosinophils % 5 % Basophils % 1 % Neutrophils # 7.2 (1.3-7.7) k/uL Lymphocytes # 1.1 (1.0-4.8) k/uL Monocytes # 0.5 (0-1.0) k/uL Eosinophils # 0.5 (0-0.7) k/uL Basophils # 0.1 (0-0.2) k/uL Hypochromasia Marked Anisocytosis Slight Microcytosis Slight PT 11.3 (9.0-12.0) sec INR 1.1 (<1.2) APTT 26.7 (22.0-30.0) sec Plasma Lactic Acid Taurus (0.7-2.0) mmol/L NT-Pro-B Natriuret Pep pg/mL Urine Color Yellow Urine Appearance Cloudy (Clear) Urine pH 5.0 (5.0-8.0) Ur Specific [place] 1.014 (1.001-1.035) Urine Protein Negative (Negative) Urine Glucose (UA) Negative (Negative) Urine Ketones Negative (Negative) Urine Blood Negative (Negative) Urine Nitrite Positive (Negative) Urine Bilirubin Negative (Negative) Urine Urobilinogen <2.0 (<2.0) mg/dL Ur Leukocyte Esterase Large H (Negative) Urine RBC 3 (0-5) /hpf Urine WBC 21 H (0-5) /hpf Urine WBC Clumps Rare H (None) /hpf Ur Squamous Epith Cells <1 (0-4) /hpf Amorphous Sediment Rare H (None) /hpf Urine Bacteria Occasional H (None) /hpf Hyaline Casts 4 H (0-2) /lpf Urine Mucus Rare H (None) /hpf Coronavirus (PCR) (Not Detectd) Influenza Type A RNA (Not Detectd) Influenza Type B (PCR) (Not Detectd) 03/23/22 03/23/22 03/23/22 Range/Units 21:47 21:47 21:47 WBC (3.8-10.6) k/uL RBC (4.30-5.90) m/uL Hgb (13.0-17.5) gm/dL Hct (39.0-53.0) % MCV (80.0-100.0) fL MCH (25.0-35.0) pg MCHC (31.0-37.0) g/dL RDW (11.5-15.5) % Plt Count (150-450) k/uL MPV Neutrophils % % Lymphocytes % % Monocytes % % Eosinophils % % Basophils % % Neutrophils # (1.3-7.7) k/uL Lymphocytes # (1.0-4.8) k/uL Monocytes # (0-1.0) k/uL Eosinophils # (0-0.7) k/uL Basophils # (0-0.2) k/uL Hypochromasia Anisocytosis Microcytosis PT (9.0-12.0) sec INR (<1.2) APTT (22.0-30.0) sec Plasma Lactic Acid Taurus 2.8 H* (0.7-2.0) mmol/L NT-Pro-B Natriuret Pep 616 pg/mL Urine Color Urine Appearance (Clear) Urine pH (5.0-8.0) Ur Specific [place] (1.001-1.035) Urine Protein (Negative) Urine Glucose (UA) (Negative) Urine Ketones (Negative) Urine Blood (Negative) Urine Nitrite (Negative) Urine Bilirubin (Negative) Urine Urobilinogen (<2.0) mg/dL Ur Leukocyte Esterase (Negative) Urine RBC (0-5) /hpf Urine WBC (0-5) /hpf Urine WBC Clumps (None) /hpf Ur Squamous Epith Cells (0-4) /hpf Amorphous Sediment (None) /hpf Urine Bacteria (None) /hpf Hyaline Casts (0-2) /lpf Urine Mucus (None) /hpf Coronavirus (PCR) (Not Detectd) Influenza Type A RNA Not Detected (Not Detectd) Influenza Type B (PCR) Not Detected (Not Detectd) 03/23/22 Range/Units 21:47 WBC (3.8-10.6) k/uL RBC (4.30-5.90) m/uL Hgb (13.0-17.5) gm/dL Hct (39.0-53.0) % MCV (80.0-100.0) fL MCH (25.0-35.0) pg MCHC (31.0-37.0) g/dL RDW (11.5-15.5) % Plt Count (150-450) k/uL MPV Neutrophils % % Lymphocytes % % Monocytes % % Eosinophils % % Basophils % % Neutrophils # (1.3-7.7) k/uL Lymphocytes # (1.0-4.8) k/uL Monocytes # (0-1.0) k/uL Eosinophils # (0-0.7) k/uL Basophils # (0-0.2) k/uL Hypochromasia Anisocytosis Microcytosis PT (9.0-12.0) sec INR (<1.2) APTT (22.0-30.0) sec Plasma Lactic Acid Taurus (0.7-2.0) mmol/L NT-Pro-B Natriuret Pep pg/mL Urine Color Urine Appearance (Clear) Urine pH (5.0-8.0) Ur Specific [place] (1.001-1.035) Urine Protein (Negative) Urine Glucose (UA) (Negative) Urine Ketones (Negative) Urine Blood (Negative) Urine Nitrite (Negative) Urine Bilirubin (Negative) Urine Urobilinogen (<2.0) mg/dL Ur Leukocyte Esterase (Negative) Urine RBC (0-5) /hpf Urine WBC (0-5) /hpf Urine WBC Clumps (None) /hpf Ur Squamous Epith Cells (0-4) /hpf Amorphous Sediment (None) /hpf Urine Bacteria (None) /hpf Hyaline Casts (0-2) /lpf Urine Mucus (None) /hpf Coronavirus (PCR) Not Detected (Not Detectd) Influenza Type A RNA (Not Detectd) Influenza Type B (PCR) (Not Detectd) - EKG Data -: EKG Interpreted by Me EKG Comments: 12-lead Electrocardiogram Interpretation Note EKG was reviewed and interpreted by myself. 12-lead ECG performed at 1921 is interpreted by me as revealing normal sinus rhythm at a rate of 84 beats per minute. [place] is normal. [place] interval is 150 ms, QRS duration is 89 ms, QTc is 409 ms.. There were no ST or T wave abnormalities to suggest myocardial ischemia or injury. R wave progression across the precordium was satisfactory. By my interpretation this EKG is non-diagnostic for acute ischemia. Disposition Clinical Impression: UTI (urinary tract infection), Dehydration, Constipation Disposition: ADMITTED IP TO THIS HOSP Condition: Stable Referrals: Matteo Hernandez MD [Primary Care Provider] - 1-2 days Time of Disposition: 23:00
[2022-03-24] MEDS ORDERED: NALOXONE 0.4 MG/ML 1 ML VIAL IV PRN (00:08)
[2022-03-24 00:26] LABS: ALT 19 U/L (4-49); AST 43 U/L (17-59); African American GFR (CKD) >90 (>60 ml/min/1.73 sqM); Albumin 3.6 g/dL (3.5-5.0); Alkaline Phosphatase 83 U/L (38-126); Amylase 53 U/L (30-110); Anion Gap 10 mmol/L; Blood Urea Nitrogen 24 mg/dL (9-20); Calcium 8.4 mg/dL (8.4-10.2); Carbon Dioxide 23 mmol/L (22-30); Chloride 104 mmol/L (98-107); Glucose 95 mg/dL (74-99); Lipase 93 U/L (23-300); Magnesium 2.2 mg/dL (1.6-2.3); Non-African American GFR(CKD) >90 (>60 ml/min/1.73 sqM); Sodium 137 mmol/L (137-145); Total Bilirubin 0.5 mg/dL (0.2-1.3); Total Protein 6.8 g/dL (6.3-8.2)
[2022-03-24 00:57] LABS: Potassium 5.2 mmol/L (3.5-5.1)
[2022-03-24] MEDS: METOPROLOL TARTRATE 50 MG TAB PEG/G-TUBE SCH ×2 (01:58→12:33)
[2022-03-24] MEDS: METOPROLOL TARTRATE 25 MG TAB PEG/G-TUBE SCH ×2 (01:58→12:33)
[2022-03-24] MEDS: OXYBUTYNIN CHLORIDE 5 MG TAB PEG/G-TUBE SCH ×3 (01:59→17:31)
[2022-03-24] MEDS: carBAMazepine 200 MG TAB PEG/G-TUBE SCH ×2 (02:00→12:33)
[2022-03-24] MEDS: BACLOFEN 10 MG TAB PEG/G-TUBE SCH ×4 (02:01→17:30)
--- NOTE | 2022-03-24 07:51 | P.HPIM ---
History of Present Illness This is a pleasant 61 years old male with past medical history of Deep Vein Thrombosis not on anticoagulation, GERD/Reflux, Hypertension, Musculoskeletal Disorder,Seizure Disorder, S, Pt diagnosed with MS at the age of 39 yrs, pt has dysphagia/NPO with peg tube, contractures, last seizure 07/2020, trigeminal neuralgia, dysarthria/anarthria/neurogenic bladder with IDC-UTIs/sepsis, multiple pneumonias, incontinent of stool, pt has had decubitus ulcer coccyx- sister , DVT bilateral arms, hypoxia, oxygen at 2L/NC, pt is baseline non-verbal with peg tube and aggarwal catheter in place [facility] signs and symptoms timbo breathing. Patient was started on levofloxacin and sent to the emergency room. Per ER note patient had low-grade fever of 99-100 Vital showing no fever on admission. Is slightly tachypneic. The rest of vitals are stable and he is saturating 95% on room air. Hemoglobin 11.9, rest of CBC, INR, BMP and liver enzymes are unremarkable. Troponin slightly elevated at 0.37. Urinalysis is suspicious for infection. EKG showing normal sinus rhythm at [address]-T changes Chest x-ray: Subsegmental atelectasis and scarring of the lung. Normal heart. No change compared to old exam KUB: There is evidence of some constipation and large bowel ileus. No free air. Fecal material increased compared to old exam. Large bulky has increased In the emergency room he was started on Tylenol, normal saline was started on cefepime Review of Systems Patient is nonverbal at baseline Past Medical History Past Medical History: Deep Vein Thrombosis (DVT), GERD/Reflux, Hypertension, Musculoskeletal Disorder, Neurologic Disorder, Pneumonia, Seizure Disorder, Skin Disorder Additional Past Medical History / Comment(s): Pt diagnosed with MS at the age of 39 yrs, eizure/pneumonia/UTI with sepsis/respirtory failure/vented, cognitive impairment, sister states when he is feeling well he could speak a few words/nod head appropriately/give thumbs up/roll eyes but when ill is nonverbal, pt has dysphagia/NPO with peg tube, contractures, last seizure 07/2020, trigeminal neuralgia, dysarthria/anarthria/neurogenic bladder with IDC-UTIs/sepsis, multipl e pneumonias, recent seizure-last one 07/03/20, incontinent of stool, pt has had decubitus ulcer coccyx-sister unsure of skin condition at this time, past anemia r/t heparin/epistaxiis which involved nasal packing/transfusions, DVT bilateral arms, hypoxia, oxygen at 2L/NC, L femoral head fracture History of Any Multi-Drug Resistant Organisms: ESBL, MRSA, Other MDRO Date of last positivie culture/infection: 03/09/21-MRSA; 11/23/19 ESBL-E.coli MDRO Source:: Abdomen-Peg site MRSA; Urine -ESBL Past Surgical History: Tonsillectomy Additional Past Surgical History / Comment(s): Gastrostomy, peg tube, I&D coccyx decubitius, bronchoscopy, bilateral lasik eye surgery. Past Anesthesia/Blood Transfusion Reactions: No Reported Reaction Additional Past Anesthesia/Blood Transfusion Reaction / Comment(s): Pt has received blood in past without reaction. Past Psychological History: Depression Smoking Status: Never smoker Past Alcohol Use History: None Reported Past Drug Use History: None Reported - Past Family History Father Family Medical History: Myocardial Infarction (NC) Mother Family Medical History: Hypertension, Myocardial Infarction (NC) Additional Family Medical History / Comment(s): Mother of a NC at the age of 73 yrs. Medications and Allergies Home Medications Medication Instructions Recorded Confirmed Type Oxybutynin Chloride [Ditropan Oral 5 mg PEG/G-TUBE Q8H 09/08/19 01/13/22 History Soln] Ipratropium-Albuterol Nebulize 3 ml INHALATION RT-Q6H 12/16/19 01/13/22 History [Duoneb 0.5 mg-3 mg/3 ml Soln] Baclofen [Lioresal] 10 mg PEG/G-TUBE Q8H 07/16/20 01/13/22 History Aspirin 81 mg PEG/G-TUBE DAILY 11/27/20 01/13/22 History Cranberry Fruit Extract [Cranberry] 500 mg PEG/G-TUBE DAILY 11/27/20 01/13/22 History Famotidine [Pepcid] 20 mg PEG/G-TUBE HS 03/07/21 01/13/22 History Magnesium Hydroxide [Milk of 7,200 mg PEG/G-TUBE Q72H PRN 03/07/21 01/13/22 History Magnesia Concentrate] Acetaminophen Tab [Tylenol] 650 mg PEG/G-TUBE Q6H PRN MDD 06/13/21 01/13/22 History 3GM/24HR Metoprolol Tartrate [Lopressor] 25 mg PEG/G-TUBE Q12H 06/13/21 01/13/22 History Metoprolol Tartrate [Lopressor] 50 mg PEG/G-TUBE Q12H 06/13/21 01/13/22 History Cholecalciferol [Vitamin D3 (25 25 mcg PEG/G-TUBE DAILY 07/02/21 01/13/22 History Mcg = 1000 Iu)] carBAMazepine [carBAMazepine Oral 200 mg PEG/G-TUBE Q12H 07/02/21 01/13/22 History Susp] Amantadine Hcl Solution 50mg/5ml 100 mg PEG/G-TUBE DAILY 12/22/21 01/13/22 History guaiFENesin [Mucinex] 600 mg PEG/G-TUBE Q12H 12/22/21 01/13/22 History Lacosamide [Vimpat] 150 mg PEG/G-TUBE Q12H #4 tab 12/26/21 01/13/22 Rx Lactulose 20 gm PEG/G-TUBE TID 01/03/22 01/13/22 History Scopolamine [Scopolamine 1 MG/72 1 patch TRANSDERM Q72H 01/03/22 01/13/22 History HR patch] Allergies Allergy/AdvReac Type Severity Reaction Status Date / Time meropenem [From Merrem] Allergy Rash/Hives Verified 01/13/22 20:54 Physical Exam Vitals: Vital Signs Temp Pulse Resp BP Pulse Ox 03/24/22 05:56 79 14 146/93 96 03/24/22 01:55 78 20 136/76 95 03/24/22 00:00 18 03/23/22 18:58 99.3 F 86 24 127/93 96 Intake and Output 03/23/22 03/23/22 03/24/22 14:59 22:59 06:59 Other: Weight 90.718 kg -GENERAL: The patient is nonverbal at baseline, not in any acute distress. Well developed, well nourished. CONTRACTURES ( chronic) HEENT: Pupils are round and equally reacting to light. EOMI. No scleral icterus. No conjunctival pallor. Normocephalic, atraumatic. No pharyngeal erythema. No thyromegaly. CARDIOVASCULAR: S1 and S2 present. No murmurs, rubs, or gallops. PULMONARY: Chest is clear to auscultation, no wheezing or crackles. -ABDOMEN: Soft, nontender, nondistended, normoactive bowel sounds. No palpable organomegaly. PEG tube in place. Indwelling Aggarwal catheter in place MUSCULOSKELETAL: No joint swelling or deformity. EXTREMITIES: No cyanosis, clubbing, or pedal edema. NEUROLOGICAL: Gross neurological examination did not reveal any focal deficits. SKIN: No rashes. No petechiae Results CBC & Chem 7: 03/23/22 21:47 03/23/22 23:47 Labs: Abnormal Lab Results - Last 24 Hours (Table) 03/23/22 03/23/22 03/23/22 Range/Units 21:47 21:47 21:47 Hgb 11.9 L (13.0-17.5) gm/dL MCV 76.4 L (80.0-100.0) fL MCH 22.5 L (25.0-35.0) pg MCHC 29.5 L (31.0-37.0) g/dL RDW 17.3 H (11.5-15.5) % Potassium (3.5-5.1) mmol/L BUN (9-20) mg/dL Plasma Lactic Acid Taurus 2.8 H* (0.7-2.0) mmol/L Troponin I (0.000-0.034) ng/mL Ur Leukocyte Esterase Large H (Negative) Urine WBC 21 H (0-5) /hpf Urine WBC Clumps Rare H (None) /hpf Amorphous Sediment Rare H (None) /hpf Urine Bacteria Occasional H (None) /hpf Hyaline Casts 4 H (0-2) /lpf Urine Mucus Rare H (None) /hpf 03/23/22 03/23/22 03/24/22 Range/Units 23:47 23:47 01:30 Hgb (13.0-17.5) gm/dL MCV (80.0-100.0) fL MCH (25.0-35.0) pg MCHC (31.0-37.0) g/dL RDW (11.5-15.5) % Potassium 5.2 H (3.5-5.1) mmol/L BUN 24 H (9-20) mg/dL Plasma Lactic Acid Taurus 2.8 H* (0.7-2.0) mmol/L Troponin I 0.037 H* (0.000-0.034) ng/mL Ur Leukocyte Esterase (Negative) Urine WBC (0-5) /hpf Urine WBC Clumps (None) /hpf Amorphous Sediment (None) /hpf Urine Bacteria (None) /hpf Hyaline Casts (0-2) /lpf Urine Mucus (None) /hpf Microbiology - Last 24 Hours (Table) 03/23/22 21:47 Urine Culture - Preliminary Urine,Voided Assessment and Plan Assessment: Acute urinary tract infection Mild elevation of the troponin, most likely it's troponin leak constipation and fecal impaction Hypertension History of seizure History of multiple sclerosis History of dysphagia status post PEG tube History of contracture History of trigeminal neuralgia History of dysarthria history of neurogenic bladder status post indwelling Aggarwal catheter History of multiple pneumonias and UTIs. Pressure ulcers Chronic approximate respiratory failure included oxygen via nasal cannula Plan: This is a pleasant 61 years old male who presents with UTI continue with antibiotic , currently on cefepime follow-up urine culture infectious disease consult patient very unlikely to have cardiac disease and most likely this is troponin leak however he was admitted to [facility] therefore going to call cardiology consult service can be cleared him and he can go to the general medical floor Labs and medication were reviewed.. Continue same treatment. Continue with symptomatic treatment. Resume home medication. Monitor lytes and vitals. DVT and GI prophylaxis. Further recommendations depends on the clinical course of the patient DVT prophylaxis: Subcutaneous heparin GI Prophylaxis: Pepcid Prognosis is guarded
[2022-03-24] MEDS: HEPARIN SODIUM,PORCINE/PF 5,000 UNIT/0.5 ML SYRINGE SQ SCH ×2 (10:18→17:30)
[2022-03-24] MEDS: LACTULOSE 20 GM/30 ML CUP PEG/G-TUBE SCH ×3 (10:18→22:32)
[2022-03-24] MEDS: LACOSAMIDE 150 MG TABLET PEG/G-TUBE SCH ×2 (10:18→22:31)
[2022-03-24] MEDS: ASPIRIN 81 MG PEG/G-TUBE SCH (10:18)
--- NOTE | 2022-03-24 10:58 | P.CRDCN ---
History of Present Illness Consult date: 03/24/22 History of present illness: HISTORY OF PRESENT ILLNESS: This is a 61-year-old male with a past medical history significant for DVT, hypertension, multiple sclerosis, seizure disorder, dysphagia with PEG tube, pneumonia, neurogenic bladder with chronic aggarwal catheter. Patient does not follow with a roll on man. We have been asked to see the patient in consultation for abnormal troponins. Patient examined at the bedside. Patient admitted to the hospital from [facility] secondary to "noisy breathing". The patient is nonverbal and history is limited. The patient was able to shake his head no when he was asked if he was having chest pain. Patient apparently had low grade fevers at the [facility]. * EKG reveals sinus mechanism with no signs of acute ischemia * Chest xray subsegmental atelectasis and scarring of the right lung. Normal heart. No change compared to old exam. * Laboratory data: WBC 9.8. Hemoglobin 11.9. Platelet count 336. Sodium 137. Potassium 5.2. BUN 24. Creatinine 0.84. Lactic acid 2.8. ProBNP 616. Troponin 0.037. * Current home cardiac medications include aspirin 81 mg daily, Lasix 40 mg daily, metoprolol tartrate 75 mg twice a day * Most recent echocardiogram obtained in May 2021 revealed ejection fraction 55-60%, trace to mild MR, trace TR * Cardiac catheterization history: Unknown REVIEW OF SYSTEMS: At the time of my exam: Unable to obtain thorough review of systems secondary to altered mental status PHYSICAL EXAM: VITAL SIGNS: Reviewed. GENERAL: Well-developed in no acute distress. HEENT: Head is normocephalic. Pupils are equal, round. Sclerae anicteric. Mucous membranes of the mouth are moist. Neck supple. No JVD or thyromegaly LUNGS: Respirations even and unlabored. Lungs with diffuse rhonchi and bibasilar crackles HEART: Regular rate and rhythm. S1 and S2 heard. ABDOMEN: Soft. Nondistended. Nontender. EXTREMITIES: Normal range of motion. No clubbing or cyanosis. Peripheral pulses intact. No lower extremity edema NEUROLOGIC: Awake. Nonverbal. ASSESSMENT: Urinary tract infection Constipation/fecal impaction Multiple sclerosis Seizure disorder Dysphagia with PEG tube Neurogenic bladder with chronic Aggarwal catheter History of pneumonia History of DVT History of hypertension PLAN: An acute coronary event has been ruled out Resume home cardiac medications Further management per internal medicine We will sign off. Please reconsult if needed. Nurse practitioner note has been reviewed by physician. Signing provider agrees with the documented findings, assessment, and plan of care. Past Medical History Past Medical History: Deep Vein Thrombosis (DVT), GERD/Reflux, Hypertension, Musculoskeletal Disorder, Neurologic Disorder, Pneumonia, Seizure Disorder, Skin Disorder Additional Past Medical History / Comment(s): Pt diagnosed with MS at the age of 39 yrs, eizure/pneumonia/UTI with sepsis/respirtory failure/vented, cognitive impairment, sister states when he is feeling well he could speak a few words/nod head appropriately/give thumbs up/roll eyes but when ill is nonverbal, pt has dysphagia/NPO with peg tube, contractures, last seizure 07/2020, trigeminal neuralgia, dysarthria/anarthria/neurogenic bladder with IDC-UTIs/sepsis, multiple pneumonias, recent seizure-last one 07/03/20, incontinent of stool, pt has had decubitus ulcer coccyx-sister unsure of skin condition at this time, pa st anemia r/t heparin/epistaxiis which involved nasal packing/transfusions, DVT bilateral arms, hypoxia, oxygen at 2L/NC, L femoral head fracture History of Any Multi-Drug Resistant Organisms: ESBL, MRSA, Other MDRO Date of last positivie culture/infection: 03/09/21-MRSA; 11/23/19 ESBL-E.coli MDRO Source:: Abdomen-Peg site MRSA; Urine -ESBL Past Surgical History: Tonsillectomy Additional Past Surgical History / Comment(s): Gastrostomy, peg tube, I&D coccyx decubitius, bronchoscopy, bilateral lasik eye surgery. Past Anesthesia/Blood Transfusion Reactions: No Reported Reaction Additional Past Anesthesia/Blood Transfusion Reaction / Comment(s): Pt has received blood in past without reaction. Past Psychological History: Depression Smoking Status: Never smoker Past Alcohol Use History: None Reported Past Drug Use History: None Reported - Past Family History Father Family Medical History: Myocardial Infarction (NE) Mother Family Medical History: Hypertension, Myocardial Infarction (NE) Additional Family Medical History / Comment(s): Mother of a NE at the age of 73 yrs. Medications and Allergies Home Medications Medication Instructions Recorded Confirmed Type Oxybutynin Chloride [Ditropan Oral 5 mg PEG/G-TUBE TID@0600,1400,2200 09/08/19 03/24/22 History Soln] Ipratropium-Albuterol Nebulize 3 ml INHALATION RT-Q6H 12/16/19 03/24/22 History [Duoneb 0.5 mg-3 mg/3 ml Soln] Baclofen [Lioresal] 10 mg PEG/G-TUBE TID@0600,1400,2200 07/16/20 03/24/22 History Aspirin 81 mg PEG/G-TUBE DAILY@0900 11/27/20 03/24/22 History Cranberry Fruit Extract [Cranberry] 500 mg PEG/G-TUBE DAILY@0900 11/27/20 03/24/22 History Magnesium Hydroxide [Milk of 7,200 mg PEG/G-TUBE Q72H PRN 03/07/21 03/24/22 History Magnesia Concentrate] Acetaminophen Tab [Tylenol] 650 mg PEG/G-TUBE Q6H PRN MDD 06/13/21 03/24/22 History 3GM/24HR Metoprolol Tartrate [Lopressor] 25 mg PEG/G-TUBE BID@0900,209906/13/21 03/24/22 History Metoprolol Tartrate [Lopressor] 50 mg PEG/G-TUBE BID@0900,209906/13/21 03/24/22 History Cholecalciferol [Vitamin D3 (25 25 mcg PEG/G-TUBE DAILY@0900 07/02/21 03/24/22 History Mcg = 1000 Iu)] carBAMazepine [carBAMazepine Oral 200 mg PEG/G-TUBE BID@0900,209907/02/21 03/24/22 History Susp] Amantadine Hcl Solution 50mg/5ml 100 mg PEG/G-TUBE DAILY@0900 12/22/21 03/24/22 History guaiFENesin [Mucinex] 600 mg PEG/G-TUBE BID@0900,209912/22/21 03/24/22 History Lactulose 20 gm PEG/G-TUBE TID@0600,1400,2200 01/03/22 03/24/22 History Scopolamine [Scopolamine 1 MG/72 1 patch TRANSDERM Q72H 01/03/22 03/24/22 History HR patch] Artificial Tears-Hypromellose 1 drops BOTH EYES Q8H 03/24/22 03/24/22 History [Artificial Tear Drops] Famotidine 40mg/5ml Susp 20 mg PEG/G-TUBE HS@209903/24/22 03/24/22 History Furosemide [Lasix] 40 mg PEG/G-TUBE DAILY@89903/24/22 03/24/22 History LORazepam ORAL CONC [Ativan 1 mg PO DAILY PRN 03/24/22 03/24/22 History Intensol] Lacosamide [Vimpat] 150 mg PEG/G-TUBE BID@0900,209903/24/22 03/24/22 History Levofloxacin [Levaquin] 500 mg PEG/G-TUBE DAILY@0903/24/22 03/24/22 History Levofloxacin [Levaquin] 500 mg PEG/G-TUBE ONCE 03/24/22 03/24/22 History Uti Stat 30 ml PEG/G-TUBE BID@0900,209903/24/22 03/24/22 History Allergies Allergy/AdvReac Type Severity Reaction Status Date / Time meropenem [From Merrem] Allergy Rash/Hives Verified 03/24/22 08:36 Physical Exam Vitals: Vital Signs Temp Pulse Resp BP Pulse Ox 03/24/22 09:00 64 14 143/84 96 03/24/22 05:56 79 14 146/93 96 03/24/22 01:55 78 20 136/76 95 03/24/22 00:00 18 03/23/22 18:58 99.3 F 86 24 127/93 96 Intake and Output 03/23/22 03/24/22 03/24/22 22:59 06:59 14:59 Other: Weight 90.718 kg Results 03/23/22 21:47 03/23/22 23:47 Cardiac Enzymes 03/23/22 03/23/22 Range/Units 23:47 23:47 AST 43 (17-59) U/L Troponin I 0.037 H* (0.000-0.034) ng/mL Coagulation 03/23/22 Range/Units 21:47 PT 11.3 (9.0-12.0) sec APTT 26.7 (22.0-30.0) sec CBC 03/23/22 Range/Units 21:47 WBC 9.8 (3.8-10.6) k/uL RBC 5.28 (4.30-5.90) m/uL Hgb 11.9 L (13.0-17.5) gm/dL Hct 40.4 (39.0-53.0) % Plt Count 336 (150-450) k/uL Comprehensive Metabolic Panel 03/23/22 Range/Units 23:47 Sodium 137 (137-145) mmol/L Potassium 5.2 H (3.5-5.1) mmol/L Chloride 104 (98-107) mmol/L Carbon Dioxide 23 (22-30) mmol/L BUN 24 H (9-20) mg/dL Creatinine 0.84 (0.66-1.25) mg/dL Glucose 95 (74-99) mg/dL Calcium 8.4 (8.4-10.2) mg/dL AST 43 (17-59) U/L ALT 19 (4-49) U/L Alkaline Phosphatase 83 (38-126) U/L Total Protein 6.8 (6.3-8.2) g/dL Albumin 3.6 (3.5-5.0) g/dL Current Medications Generic Name Dose Route Start Last Admin Trade Name Freq PRN Reason Stop Dose Admin Acetaminophen 650 mg 03/24/22 00:06 Acetaminophen Tab 325 Mg Tab PEG/G-TUBE Q6H PRN Fever and/ or Pain Aspirin 81 mg 03/24/22 09:00 03/24/22 10:18 Aspirin 81 Mg PEG/G-TUBE 81 mg DAILY LUPE Administration Baclofen 10 mg 03/24/22 00:15 03/24/22 10:18 Baclofen 10 Mg Tab PEG/G-TUBE 10 mg Q8H LUPE Administration Carbamazepine 200 mg 03/24/22 00:15 03/24/22 02:00 Carbamazepine 200 Mg Tab PEG/G-TUBE 200 mg Q12H LUPE Administration Famotidine 20 mg 03/24/22 21:00 Famotidine 8 Mg/Ml Oral.Susp PEG/G-TUBE HS LUPE Heparin Sodium (Porcine) 5,000 unit 03/24/22 08:00 03/24/22 10:18 Heparin Sodium,Porcine/Pf 5,000 Unit/0.5 Ml Syringe SQ 5,000 unit Q8HR LUPE Administration Cefepime HCl 2 gm/ Sodium 100 mls @ 25 mls/hr 03/24/22 23:15 Chloride IVPB Q8H [facility] Protocol Lacosamide 150 mg 03/24/22 09:00 03/24/22 10:18 Lacosamide 150 Mg Tablet PEG/G-TUBE 150 mg Q12HR LUPE Administration Lactulose 20 gm 03/24/22 09:00 03/24/22 10:18 Lactulose 20 Gm/30 Ml Cup PEG/G-TUBE 20 gm TID LUPE Administration Metoprolol Tartrate 25 mg 03/24/22 00:15 03/24/22 01:58 Metoprolol Tartrate 25 Mg Tab PEG/G-TUBE 25 mg Q12H LUPE Administration Metoprolol Tartrate 50 mg 03/24/22 00:15 03/24/22 01:58 Metoprolol Tartrate 50 Mg Tab PEG/G-TUBE 50 mg Q12H LUPE Administration Naloxone HCl 0.2 mg 03/24/22 00:08 Naloxone 0.4 Mg/Ml 1 Ml Vial IV Q2M PRN Opioid Reversal Oxybutynin Chloride 5 mg 03/24/22 00:15 03/24/22 10:18 Oxybutynin Chloride 5 Mg Tab PEG/G-TUBE 5 mg Q8H LUPE Administration Intake and Output 03/23/22 03/24/22 03/24/22 22:59 06:59 14:59 Other: Weight 90.718 kg 03/23/22 21:47 03/23/22 23:47
[2022-03-24] MEDS: CEFEPIME 2 GM in SODIUM CHLORIDE 0.9% 100 ML IVPB SCH (22:34)
[2022-03-24] MEDS: FAMOTIDINE 8 MG/ML ORAL.SUSP PEG/G-TUBE SCH (22:39)
[2022-03-25] MEDS: HEPARIN SODIUM,PORCINE/PF 5,000 UNIT/0.5 ML SYRINGE SQ SCH ×3 (00:21→15:56)
[2022-03-25] MEDS: OXYBUTYNIN CHLORIDE 5 MG TAB PEG/G-TUBE SCH ×3 (00:22→15:57)
[2022-03-25] MEDS: carBAMazepine 200 MG TAB PEG/G-TUBE SCH ×2 (00:22→12:31)
[2022-03-25] MEDS: METOPROLOL TARTRATE 25 MG TAB PEG/G-TUBE SCH ×2 (00:22→12:31)
[2022-03-25] MEDS: METOPROLOL TARTRATE 50 MG TAB PEG/G-TUBE SCH ×2 (00:22→12:31)
[2022-03-25] MEDS: BACLOFEN 10 MG TAB PEG/G-TUBE SCH ×3 (00:23→15:56)
--- NOTE | 2022-03-25 00:23 | P.CONS ---
History of Present Illness - Reason for Consult Consult date: 03/24/22 Urinary tract infection Requesting physician: Avila E Sheet - Chief Complaint Mental status changes and fever x one day - History of Present Illness Patient is a 61-year-old male with a past medical history significant for multiple sclerosis in this patient who is currently bedbound patient did have history of recurrent UTIs and aspiration pneumonia, patient was sent to [facility] ER last night with concern for noisy breathing gurgle sound when he breathes no clear history of vomiting or choking on the food patient also have a chronic indwelling Stein catheter and the patient was noticed to have a cloudy urine patient on arrival to the ER did have a low-grade fever of 99.3 degrees formulae and patient did have a normal white count kidney function has been normal did have elevated lactic acid and troponin liver enzymes are normal amylase lipase was normal UA was positive COVID and influenza PCR was negative patient did have a chest x-ray subsegmental atelectasis scarring of the right lung normal heart patient was started on cefepime has been admitted to the hospital infectious disease was consulted for further management most of the information has been obtained from review the chart as the patient was not able to provide reliable history Review of Systems Positive points has been mentioned in HPI complete review could not be obtained because of his underlying mental status Past Medical History Past Medical History: Deep Vein Thrombosis (DVT), GERD/Reflux, Hypertension, Musculoskeletal Disorder, Neurologic Disorder, Pneumonia, Seizure Disorder, Skin Disorder Additional Past Medical History / Comment(s): Pt diagnosed with MS at the age of 39 yrs, eizure/pneumonia/UTI with sepsis/respirtory failure/vented, cognitive impairment, sister states when he is feeling well he could speak a few words/nod head appropriately/give thumbs up/roll eyes but when ill is nonverbal, pt has dysphagia/NPO with peg tube, contractures, last seizure 07/2020, trigeminal neuralgia, dysarthria/anarthria/neurogenic bladder with IDC-UTIs/sepsis, multiple pneumonias, recent seizure-last one 07/03/20, incontinent of stool, pt has had decubitus ulcer coccyx-sister unsure of skin condition at this time, past anemia r/t heparin/epistaxiis which involved nasal packing/transfusions, DVT bilateral arms, hypoxia, oxygen at 2L/NC, L femoral head fracture History of Any Multi-Drug Resistant Organisms: ESBL, MRSA, Other MDRO Year Discovered:: 03/09/21-MRSA; 11/23/19 ESBL-E.coli MDRO Source:: Abdomen-Peg site MRSA; Urine -ESBL Past Surgical History: Tonsillectomy Additional Past Surgical History / Comment(s): Gastrostomy, peg tube, I&D coccyx decubitius, bronchoscopy, bilateral lasik eye surgery. Past Anesthesia/Blood Transfusion Reactions: No Reported Reaction Additional Past Anesthesia/Blood Transfusion Reaction / Comm: Pt has received blood in past without reaction. Past Psychological History: Depression Smoking Status: Never smoker Past Alcohol Use History: None Reported Past Drug Use History: None Reported - Past Family History Father Family Medical History: Myocardial Infarction (ND) Mother Family Medical History: Hypertension, Myocardial Infarction (ND) Additional Family Medical History / Comment(s): Mother of a ND at the age of 73 yrs. Medications and Allergies Home Medications Medication Instructions Recorded Confirmed Type Oxybutynin Chloride [Ditropan Oral 5 mg PEG/G-TUBE TID@0600,1400,2200 09/08/19 03/24/22 History Soln] Ipratropium-Albuterol Nebulize 3 ml INHALATION RT-Q6H 12/16/19 03/24/22 History [Duoneb 0.5 mg-3 mg/3 ml Soln] Baclofen [Lioresal] 10 mg PEG/G-TUBE TID@0600,1400,2200 07/16/20 03/24/22 History Aspirin 81 mg PEG/G-TUBE DAILY@0900 11/27/20 03/24/22 History Cranberry Fruit Extract [Cranberry] 500 mg PEG/G-TUBE DAILY@0900 11/27/20 03/24/22 History Magnesium Hydroxide [Milk of 7,200 mg PEG/G-TUBE Q72H PRN 03/07/21 03/24/22 History Magnesia Concentrate] Acetaminophen Tab [Tylenol] 650 mg PEG/G-TUBE Q6H PRN MDD 06/13/21 03/24/22 History 3GM/24HR Metoprolol Tartrate [Lopressor] 25 mg PEG/G-TUBE BID@0900,2100 06/13/21 03/24/22 History Metoprolol Tartrate [Lopressor] 50 mg PEG/G-TUBE BID@0900,209906/13/21 03/24/22 History Cholecalciferol [Vitamin D3 (25 25 mcg PEG/G-TUBE DAILY@0900 07/02/21 03/24/22 History Mcg = 1000 Iu)] carBAMazepine [carBAMazepine Oral 200 mg PEG/G-TUBE BID@0900,209907/02/21 03/24/22 History Susp] Amantadine Hcl Solution 50mg/5ml 100 mg PEG/G-TUBE DAILY@0900 12/22/21 03/24/22 History guaiFENesin [Mucinex] 600 mg PEG/G-TUBE BID@0900,209912/22/21 03/24/22 History Lactulose 20 gm PEG/G-TUBE TID@0600,1400,2200 01/03/22 03/24/22 History Scopolamine [Scopolamine 1 MG/72 1 patch TRANSDERM Q72H 01/03/22 03/24/22 History HR patch] Artificial Tears-Hypromellose 1 drops BOTH EYES Q8H 03/24/22 03/24/22 History [Artificial Tear Drops] Famotidine 40mg/5ml Susp 20 mg PEG/G-TUBE HS@209903/24/22 03/24/22 History Furosemide [Lasix] 40 mg PEG/G-TUBE DAILY@0903/24/22 03/24/22 History LORazepam ORAL CONC [Ativan 1 mg PO DAILY PRN 03/24/22 03/24/22 History Intensol] Lacosamide [Vimpat] 150 mg PEG/G-TUBE BID@0900,209903/24/22 03/24/22 History Uti Stat 30 ml PEG/G-TUBE BID@0900,209903/24/22 03/24/22 History Docusate [Colace] 100 mg MISCELLANE BID cap 04/07/22 Rx Ertapenem [INVanz] 1 gm IM DAILY 14 Days #14 each 04/07/22 Rx Nystatin 100,000 Unit/ml Susp 500,000 unit PO QID #0 ml 04/07/22 Rx [Mycostatin Oral Susp] Allergies Allergy/AdvReac Type Severity Reaction Status Date / Time ceftolozane [From Zerbaxa] Allergy Rapid Verified 03/27/22 07:37 Heart Rate meropenem [From Merrem] Allergy Rash/Hives Verified 03/24/22 08:36 tazobactam [From Zerbaxa] Allergy Rapid Verified 03/27/22 07:37 Heart Rate Physical Exam Vitals: Vital Signs Temp Pulse Resp BP Pulse Ox 03/24/22 09:00 64 14 143/84 96 03/24/22 05:56 79 14 146/93 96 03/24/22 01:55 78 20 136/76 95 03/24/22 00:00 18 03/23/22 18:58 99.3 F 86 24 127/93 96 Intake and Output 03/23/22 03/24/22 03/24/22 22:59 06:59 14:59 Other: Weight 90.718 kg GENERAL DESCRIPTION: Middle-aged male lying in bed, no distress. No tachypnea or accessory muscle of respiration use. HEENT: Shows Pallor , no scleral icterus. Oral mucous membrane is dry. No pharyngeal erythema or thrush NECK: Trachea central, no thyromegaly. LUNGS: Unlabored breathing. Coarse sounds bilaterally. HEART: S1, S2, regular rate and rhythm. No loud murmur ABDOMEN: Soft, no tenderness , guarding or rigidity, no organomegaly EXTREMITIES: No edema of feet. SKIN: No rash, no masses palpable. NEUROLOGICAL: The patient is awake, nonverbal orientation could not be determined Results CBC & Chem 7: 04/07/22 06:15 04/07/22 06:15 Labs: Abnormal Lab Results - Last 24 Hours (Table) 03/23/22 03/23/22 03/23/22 Range/Units 21:47 21:47 21:47 Hgb 11.9 L (13.0-17.5) gm/dL MCV 76.4 L (80.0-100.0) fL MCH 22.5 L (25.0-35.0) pg MCHC 29.5 L (31.0-37.0) g/dL RDW 17.3 H (11.5-15.5) % Potassium (3.5-5.1) mmol/L BUN (9-20) mg/dL Plasma Lactic Acid Taurus 2.8 H* (0.7-2.0) mmol/L Troponin I (0.000-0.034) ng/mL Ur Leukocyte Esterase Large H (Negative) Urine WBC 21 H (0-5) /hpf Urine WBC Clumps Rare H (None) /hpf Amorphous Sediment Rare H (None) /hpf Urine Bacteria Occasional H (None) /hpf Hyaline Casts 4 H (0-2) /lpf Urine Mucus Rare H (None) /hpf 03/23/22 03/23/22 03/24/22 Range/Units 23:47 23:47 01:30 Hgb (13.0-17.5) gm/dL MCV (80.0-100.0) fL MCH (25.0-35.0) pg MCHC (31.0-37.0) g/dL RDW (11.5-15.5) % Potassium 5.2 H (3.5-5.1) mmol/L BUN 24 H (9-20) mg/dL Plasma Lactic Acid Taurus 2.8 H* (0.7-2.0) mmol/L Troponin I 0.037 H* (0.000-0.034) ng/mL Ur Leukocyte Esterase (Negative) Urine WBC (0-5) /hpf Urine WBC Clumps (None) /hpf Amorphous Sediment (None) /hpf Urine Bacteria (None) /hpf Hyaline Casts (0-2) /lpf Urine Mucus (None) /hpf Microbiology - Last 24 Hours (Table) 03/23/22 21:47 Urine Culture - Preliminary Urine,Voided Assessment and Plan (1) UTI (urinary tract infection) due to urinary indwelling catheter Status: Acute Code(s): T83.511A - I/I REACT D/T INDWELLING URETHRAL CATHETER, INIT; N39.0 - URINARY TRACT INFECTION, SITE NOT SPECIFIED SNOMED Code(s): 934248384 Plan: 1patient presented to hospital with noisy breathing some shortness of breath and no hypoxemia and cloudy urine did have a positive UA and a low-grade fever likely representing catheter associated urinary tract infection. 2Foley catheter should be changed and UA culture should be obtained from the new catheter. 3/continue with the cefepime while waiting for the culture to finalize. We will follow on clinical condition and cultures to further adjust medication if needed Thank you for this consultation will follow this patient along with you Time with Patient: Greater than 30
[2022-03-25] MEDS: LACTULOSE 20 GM/30 ML CUP PEG/G-TUBE SCH ×3 (08:46→21:30)
[2022-03-25] MEDS: CEFEPIME 2 GM in SODIUM CHLORIDE 0.9% 100 ML IVPB SCH ×3 (08:46→23:00)
[2022-03-25] MEDS: ASPIRIN 81 MG PEG/G-TUBE SCH (08:47)
[2022-03-25] MEDS: LACOSAMIDE 150 MG TABLET PEG/G-TUBE SCH ×2 (08:47→21:30)
[2022-03-25 13:05] LABS: Anion Gap 12.4 mmol/L (10.00-18.00); BUN/Creat Ratio 18.5 Ratio (12.00-20.00); Blood Urea Nitrogen 14.8 mg/dL (9.0-27.0); Calcium 8.4 mg/dL (8.7-10.3); Carbon Dioxide 19.6 mmol/L (20.0-27.5); Non-African American GFR(CKD) 95.7 (60.0-200.0); Potassium 4.3 mmol/L (3.5-5.5)
[2022-03-25 13:24] LABS: Basophils # (A) 0.03 X 10*3/uL (0.00-0.10); Basophils % (A) 0.3 %; Eosinophils # (A) 0.41 X 10*3/uL (0.04-0.35); Eosinophils % (A) 4.6 %; HCT 37.5 % (39.6-50.0); HGB 10.3 g/dL (13.0-17.0); Immature Grans, Automated 0.6 %; Lymphocytes # (A) 0.89 X 10*3/uL (0.90-5.00); Lymphocytes % (A) 10.1 %; MCH 20.7 pg (27.0-32.0); MCHC 27.5 g/dL (32.0-37.0); MCV 75.3 fL (80.0-97.0); Mean Platelet Volume 11.5 fL (9.5-12.2); Microcytosis (M) 2+; Monocytes # (A) 0.85 X 10*3/uL (0.20-1.00); Monocytes % (A) 9.6 %; NRBC Per 100 WBC 0 /100 WBCS (0.0-0.0); Neutrophils # (A) 6.61 X 10*3/uL (1.80-7.70); Neutrophils % (A) 74.8 %; Platelet Count 285 X 10*3/uL (140-440); RBC 4.98 X 10*6/uL (4.40-5.60); RDW 18.6 % (11.5-14.5); WBC 8.84 X 10*3/uL (4.50-10.00)
[2022-03-25] MEDS: FAMOTIDINE 8 MG/ML ORAL.SUSP PEG/G-TUBE SCH (22:59)
--- NOTE | 2022-03-25 23:18 | P.PN ---
Subjective This is a pleasant 61 years old male with past medical history of Deep Vein Thrombosis not on anticoagulation, GERD/Reflux, Hypertension, Musculoskeletal Disorder,Seizure Disorder, S, Pt diagnosed with MS at the age of 39 yrs, pt has dysphagia/NPO with peg tube, contractures, last seizure 07/2020, trigeminal neuralgia, dysarthria/anarthria/neurogenic bladder with IDC-UTIs/sepsis, multiple pneumonias, incontinent of stool, pt has had decubitus ulcer coccyx- sister , DVT bilateral arms, hypoxia, oxygen at 2L/NC, pt is baseline non-verbal with peg tube and aggarwal catheter in place Patient was [facility] from [facility] for respiratory signs and symptoms timbo breathing. Patient was started on levofloxacin and sent to the emergency room. Per ER note patient had low-grade fever of 99-100 Vital showing no fever on admission. Is slightly tachypneic. The rest of vitals are stable and he is saturating 95% on room air. Hemoglobin 11.9, rest of CBC, INR, BMP and liver enzymes are unremarkable. Troponin slightly elevated at 0.37. Urinalysis is suspicious for infection. EKG showing normal sinus rhythm at [address]-T changes Chest x-ray: Subsegmental atelectasis and scarring of the lung. Normal heart. No change compared to old exam KUB: There is evidence of some constipation and large bowel ileus. No free air. Fecal material increased compared to old exam. Large bulky has increased In the emergency room he was started on Tylenol, normal saline was started on cefepime 03/25/2022 Patient looks calm, breathing quietly. No agitation, hemodynamically stable. Labs reviewed He remains on cefepime Follow-up urine culture Objective - Vital Signs Vital signs: Vital Signs Temp 99 F 03/25/22 12:14 Pulse 88 03/25/22 12:14 Resp 18 03/25/22 12:14 BP 114/73 03/25/22 12:14 Pulse Ox 97 03/25/22 12:14 FiO2 Intake & Output 03/24/22 03/25/22 03/25/22 18:59 06:59 18:59 Intake Total 0 Output Total 700 600 Balance -700 -600 Weight 90.718 kg Intake: Oral 0 Output: Urine 700 600 Uretheral (Aggarwal) 300 Other: Voiding Method Indwelling Catheter Indwelling Catheter - Exam -GENERAL: The patient is nonverbal at baseline, not in any acute distress. Well developed, well nourished. CONTRACTURES ( chronic) HEENT: Pupils are round and equally reacting to light. EOMI. No scleral icterus. No conjunctival pallor. Normocephalic, atraumatic. No pharyngeal erythema. No thyromegaly. CARDIOVASCULAR: S1 and S2 present. No murmurs, rubs, or gallops. PULMONARY: Chest is clear to auscultation, no wheezing or crackles. -ABDOMEN: Soft, nontender, nondistended, normoactive bowel sounds. No palpable organomegaly. PEG tube in place. Indwelling Aggarwal catheter in place MUSCULOSKELETAL: No joint swelling or deformity. EXTREMITIES: No cyanosis, clubbing, or pedal edema. NEUROLOGICAL: Gross neurological examination did not reveal any focal deficits. SKIN: No rashes. No petechiae - Labs CBC & Chem 7: 03/25/22 06:05 03/25/22 06:05 Labs: Abnormal Lab Results - Last 24 Hours (Table) 03/25/22 03/25/22 Range/Units 06:05 06:05 Hgb 10.3 L (13.0-17.0) g/dL Hct 37.5 L (39.6-50.0) % MCV 75.3 L (80.0-97.0) fL MCH 20.7 L (27.0-32.0) pg MCHC 27.5 L (32.0-37.0) g/dL RDW 18.6 H (11.5-14.5) % Immature Gran # 0.05 H (0.00-0.04) X 10*3/uL Lymphocytes # 0.89 L (0.90-5.00) X 10*3/uL Eosinophils # 0.41 H (0.04-0.35) X 10*3/uL Carbon Dioxide 19.6 L (20.0-27.5) mmol/L Calcium 8.4 L (8.7-10.3) mg/dL Microbiology - Last 24 Hours (Table) 03/23/22 21:47 Urine Culture - Preliminary Urine,Voided Gram Neg Bacilli Gram Neg Bacilli#2 03/24/22 05:00 Blood Culture - Preliminary Blood No Growth after 24 hours Assessment and Plan Assessment: Acute urinary tract infection Mild elevation of the troponin, most likely it's troponin leak constipation and fecal impaction Hypertension History of seizure History of multiple sclerosis History of dysphagia status post PEG tube History of contracture History of trigeminal neuralgia History of dysarthria history of neurogenic bladder status post indwelling Aggarwal catheter History of multiple pneumonias and UTIs. Pressure ulcers Chronic approximate respiratory failure included oxygen via nasal cannula Plan: This is a pleasant 61 years old male who presents with UTI continue with antibiotic , currently on cefepime follow-up urine culture infectious disease consult patient very unlikely to have cardiac disease and most likely this is troponin leak however he was admitted to [facility] therefore going to call cardiology consult service can be cleared him and he can go to the general medical floor Labs and medication were reviewed.. Continue same treatment. Continue with symptomatic treatment. Resume home medication. Monitor lytes and vitals. DVT and GI prophylaxis. Further recommendations depends on the clinical course of the patient DVT prophylaxis: Subcutaneous heparin GI Prophylaxis: Pepcid Prognosis is guarded
--- NOTE | 2022-03-26 00:17 | P.PN ---
Subjective Progress Note Date: 03/25/22 Principal diagnosis: Catheter associated urinary tract infection Patient is a 61-year-old male with past medical history significant for MS in this patient did have a history of recurrent UTIs and pneumonia has been presented to the hospital with mental status changes and coarse breath sounds has been diagnosed with catheter associated UTI. On today's evaluation that is 03/25/2022, patient is afebrile, the patient is currently breathing comfortably on room air no vomiting or diarrhea has been reported by the nursing staff patient himself cannot provide any history Objective - Vital Signs Vital signs: Vital Signs Temp 99 F 03/25/22 12:14 Pulse 88 03/25/22 12:14 Resp 18 03/25/22 12:14 BP 114/73 03/25/22 12:14 Pulse Ox 95 03/25/22 18:48 FiO2 Intake & Output 03/25/22 03/25/22 03/26/22 06:59 18:59 06:59 Intake Total 0 Output Total 600 250 Balance -600 -250 Weight 90.718 kg 90.7 kg Intake: Oral 0 Output: Urine 600 250 Uretheral (Stein) 300 Other: Voiding Method Indwelling Catheter Indwelling Catheter - Exam GENERAL DESCRIPTION: Middle-age male lying in bed in no distress RESPIRATORY SYSTEM: Unlabored breathing , decreased breath sounds at bases HEART: S1 S2 regular rate and rhythm , ABDOMEN: Soft , no tenderness EXTREMITIES: No edema feet - Labs CBC & Chem 7: 03/25/22 06:05 03/25/22 06:05 Labs: Abnormal Lab Results - Last 24 Hours (Table) 03/25/22 03/25/22 Range/Units 06:05 06:05 Hgb 10.3 L (13.0-17.0) g/dL Hct 37.5 L (39.6-50.0) % MCV 75.3 L (80.0-97.0) fL MCH 20.7 L (27.0-32.0) pg MCHC 27.5 L (32.0-37.0) g/dL RDW 18.6 H (11.5-14.5) % Immature Gran # 0.05 H (0.00-0.04) X 10*3/uL Lymphocytes # 0.89 L (0.90-5.00) X 10*3/uL Eosinophils # 0.41 H (0.04-0.35) X 10*3/uL Carbon Dioxide 19.6 L (20.0-27.5) mmol/L Calcium 8.4 L (8.7-10.3) mg/dL Microbiology - Last 24 Hours (Table) 03/23/22 21:47 Urine Culture - Preliminary Urine,Voided Gram Neg Bacilli Gram Neg Bacilli#2 03/24/22 05:00 Blood Culture - Preliminary Blood No Growth after 24 hours Assessment and Plan (1) UTI (urinary tract infection) Current Visit: Yes Status: Acute Code(s): N39.0 - URINARY TRACT INFECTION, SITE NOT SPECIFIED SNOMED Code(s): 89943044 Plan: 1patient presented to hospital with noisy breathing some shortness of breath and no hypoxemia and cloudy urine did have a positive UA and a low-grade fever likely representing catheter associated urinary tract infection. 2patient urine is currently showing gram-negative bacilli, patient to continue with the cefepime while waiting for the culture to finalize. Time with Patient: Less than 30
[2022-03-26] MEDS: carBAMazepine 200 MG TAB PEG/G-TUBE SCH ×2 (00:32→11:49)
[2022-03-26] MEDS: OXYBUTYNIN CHLORIDE 5 MG TAB PEG/G-TUBE SCH ×3 (00:33→15:39)
[2022-03-26] MEDS: BACLOFEN 10 MG TAB PEG/G-TUBE SCH ×3 (00:33→15:39)
[2022-03-26] MEDS: HEPARIN SODIUM,PORCINE/PF 5,000 UNIT/0.5 ML SYRINGE SQ SCH ×3 (00:33→15:38)
[2022-03-26] MEDS: METOPROLOL TARTRATE 25 MG TAB PEG/G-TUBE SCH ×2 (00:33→11:49)
[2022-03-26] MEDS: METOPROLOL TARTRATE 50 MG TAB PEG/G-TUBE SCH ×2 (00:33→11:49)
[2022-03-26] MEDS: ACETAMINOPHEN TAB 325 MG TAB PEG/G-TUBE PRN ×3 (04:23→22:49)
[2022-03-26] MEDS: CEFEPIME 2 GM in SODIUM CHLORIDE 0.9% 100 ML IVPB SCH ×2 (08:01→15:37)
[2022-03-26] MEDS: LACTULOSE 20 GM/30 ML CUP PEG/G-TUBE SCH ×3 (08:01→22:48)
[2022-03-26] MEDS: LACOSAMIDE 150 MG TABLET PEG/G-TUBE SCH ×2 (08:03→22:48)
[2022-03-26] MEDS: ASPIRIN 81 MG PEG/G-TUBE SCH (08:03)
[2022-03-26] MEDS ORDERED: CEFTOLOZANE/TAZOBACTAM 1.5 GM in SODIUM CHLORIDE 0.9% 100 ML IV SCH (17:00)
[2022-03-26 17:46] LABS: Appearance,Urine Clear (Clear); Bilirubin,Urine Negative (Negative); Blood,Urine Negative (Negative); Color,Urine Yellow; Glucose,Urine (UA) Negative (Negative); Ketones,Urine 1+ (Negative); Leukocyte Esterase,Urine Moderate (Negative); Mucus,Urine Moderate /hpf; Nitrite,Urine Negative (Negative); Protein,Urine 1+ (Negative); RBC,Urine 11 /hpf (0-5); Specific Gravity,Urine 1.037 (1.001-1.035); Urobilinogen,Urine <2.0 mg/dL (<2.0); WBC,Urine 16 /hpf (0-5)
[2022-03-26 18:59] LABS: Glucose,Whole Blood 127 mg/dL (70-110)
[2022-03-26] MEDS ORDERED: diphenhydrAMINE 50 MG/ML 1 ML VIAL IVP ONE (19:24)
[2022-03-26] MEDS ORDERED: methylPREDNISolone SOD SUCCI 125 MG/2 ML VIAL IV STA (19:24)
--- NOTE | 2022-03-26 19:43 | XR ---
EXAMINATION TYPE: XR chest 1V portable DATE OF EXAM: 03/26/2022 COMPARISON: 03/23/2022 HISTORY: Respiratory distress TECHNIQUE: Single view FINDINGS: There is some coarsening of interstitial markings. Heart size is normal. No obvious heart f ailure. There are chest leads. No pleural effusion. IMPRESSION: Increased interstitial bony density slightly increased compared to recent exam and consis tent with some interstitial pneumonia and fibrosis. No obvious heart failure.
--- NOTE | 2022-03-26 19:45 | XR ---
EXAMINATION TYPE: XR abdomen 1V DATE OF EXAM: 03/26/2022 COMPARISON: 03/23/2022 HISTORY: Abdominal distention TECHNIQUE: Single view FINDINGS: There is retained fecal material in the left colon. There is retained fecal material in the rectum. No free air. There is an old ununited left femoral neck fracture. IMPRESSION: There is constipation similar to the old exam.
--- NOTE | 2022-03-26 23:13 | P.PN ---
Subjective This is a pleasant 61 years old male with past medical history of Deep Vein Thrombosis not on anticoagulation, GERD/Reflux, Hypertension, Musculoskeletal Disorder,Seizure Disorder, S, Pt diagnosed with MS at the age of 39 yrs, pt has dysphagia/NPO with peg tube, contractures, last seizure 07/2020, trigeminal neuralgia, dysarthria/anarthria/neurogenic bladder with IDC-UTIs/sepsis, multiple pneumonias, incontinent of stool, pt has had decubitus ulcer coccyx- sister , DVT bilateral arms, hypoxia, oxygen at 2L/NC, pt is baseline non-verbal with peg tube and aggarwal catheter in place Patient was sent from half-way for respiratory signs and symptoms timbo breathing. Patient was started on levofloxacin and sent to the emergency room. Per ER note patient had low-grade fever of 99-100 Vital showing no fever on admission. Is slightly tachypneic. The rest of vitals are stable and he is saturating 95% on room air. Hemoglobin 11.9, rest of CBC, INR, BMP and liver enzymes are unremarkable. Troponin slightly elevated at 0.37. Urinalysis is suspicious for infection. EKG showing normal sinus rhythm at [address]-T changes Chest x-ray: Subsegmental atelectasis and scarring of the lung. Normal heart. No change compared to old exam KUB: There is evidence of some constipation and large bowel ileus. No free air. Fecal material increased compared to old exam. Large bulky has increased In the emergency room he was started on Tylenol, normal saline was started on cefepime 03/25/2022 Patient looks calm, breathing quietly. No agitation, hemodynamically stable. Labs reviewed He remains on cefepime Follow-up urine culture 03/26/2022 patient still lying in bed looks comfortable, his breathing comfortably. No respiratory distress. No agitation, it looks at baseline with contractures Urine culture, gram-negative bacilli 2. Patient remains on cefepime per ID team. Follow up final results of urine culture Objective - Vital Signs Vital signs: Vital Signs Temp 99.1 F 03/26/22 13:00 Pulse 139 H 03/26/22 19:00 Resp 24 03/26/22 19:00 BP 105/62 03/26/22 19:00 Pulse Ox 88 L 03/26/22 19:00 FiO2 Intake & Output 03/26/22 03/26/22 03/27/22 06:59 18:59 06:59 Output Total 150 270 Balance -150 -270 Weight 81.5 kg Output: Urine 150 270 Other: Voiding Method Indwelling Catheter Indwelling Catheter - Exam -GENERAL: The patient is nonverbal at baseline, not in any acute distress. Well developed, well nourished. CONTRACTURES ( chronic) HEENT: Pupils are round and equally reacting to light. EOMI. No scleral icterus. No conjunctival pallor. Normocephalic, atraumatic. No pharyngeal erythema. No thyromegaly. CARDIOVASCULAR: S1 and S2 present. No murmurs, rubs, or gallops. PULMONARY: Chest is clear to auscultation, no wheezing or crackles. -ABDOMEN: Soft, nontender, nondistended, normoactive bowel sounds. No palpable organomegaly. PEG tube in place. Indwelling Aggarwal catheter in place MUSCULOSKELETAL: No joint swelling or deformity. EXTREMITIES: No cyanosis, clubbing, or pedal edema. NEUROLOGICAL: Gross neurological examination did not reveal any focal deficits. SKIN: No rashes. No petechiae - Labs CBC & Chem 7: 03/25/22 06:05 03/25/22 06:05 Labs: Abnormal Lab Results - Last 24 Hours (Table) 03/26/22 03/26/22 Range/Units 17:20 18:57 POC Glucose (mg/dL) 127 H (70-110) mg/dL Ur Specific [place] 1.037 H (1.001-1.035) Urine Protein 1+ H (Negative) Urine Ketones 1+ H (Negative) Ur Leukocyte Esterase Moderate H (Negative) Urine RBC 11 H (0-5) /hpf Urine WBC 16 H (0-5) /hpf Urine Mucus Moderate H (None) /hpf Microbiology - Last 24 Hours (Table) 03/23/22 21:47 Urine Culture - Final Urine,Voided Providencia stuartii Klebsiella pneumoniae 03/24/22 05:00 Blood Culture - Preliminary Blood No Growth after 48 hours Assessment and Plan Assessment: Acute urinary tract infection, secondary to gram-negative bacilli 2 Mild elevation of the troponin, most likely it's troponin leak constipation and fecal impaction Hypertension History of seizure History of multiple sclerosis History of dysphagia status post PEG tube History of contracture History of trigeminal neuralgia History of dysarthria history of neurogenic bladder status post indwelling Aggarwal catheter History of multiple pneumonias and UTIs. Pressure ulcers Chronic approximate respiratory failure included oxygen via nasal cannula Plan: This is a pleasant 61 years old male who presents with UTI continue with antibiotic therapy ID team , currently on cefepime follow-up urine culture infectious disease consult Labs and medication were reviewed.. Continue same treatment. Continue with symptomatic treatment. Resume home medication. Monitor lytes and vitals. DVT and GI prophylaxis. Further recommendations depends on the clinical course of the patient DVT prophylaxis: Subcutaneous heparin GI Prophylaxis: Pepcid Prognosis is guarded
[2022-03-26] MEDS: FAMOTIDINE 8 MG/ML ORAL.SUSP PEG/G-TUBE SCH (23:33)
[2022-03-27] MEDS: BACLOFEN 10 MG TAB PEG/G-TUBE SCH ×4 (00:39→23:30)
[2022-03-27] MEDS: carBAMazepine 200 MG TAB PEG/G-TUBE SCH ×3 (00:39→23:30)
[2022-03-27] MEDS: OXYBUTYNIN CHLORIDE 5 MG TAB PEG/G-TUBE SCH ×4 (00:39→23:30)
[2022-03-27] MEDS: HEPARIN SODIUM,PORCINE/PF 5,000 UNIT/0.5 ML SYRINGE SQ SCH ×4 (00:40→23:30)
[2022-03-27] MEDS: METOPROLOL TARTRATE 25 MG TAB PEG/G-TUBE SCH ×3 (00:40→23:30)
[2022-03-27] MEDS: METOPROLOL TARTRATE 50 MG TAB PEG/G-TUBE SCH ×3 (00:40→23:30)
[2022-03-27] MEDS: SODIUM CHLORIDE 0.9% 1,000 ML IV SCH ×3 (00:53→23:31)
[2022-03-27] MEDS: ACETAMINOPHEN TAB 325 MG TAB PEG/G-TUBE PRN (08:51)
[2022-03-27] MEDS: LACTULOSE 20 GM/30 ML CUP PEG/G-TUBE SCH ×3 (08:51→20:48)
[2022-03-27] MEDS: LACOSAMIDE 150 MG TABLET PEG/G-TUBE SCH ×2 (08:52→20:48)
[2022-03-27] MEDS: ASPIRIN 81 MG PEG/G-TUBE SCH (08:52)
--- NOTE | 2022-03-27 12:24 | CDI ---
Documentation Clarification Form Date: 03/27/2022 12:05:41 PM From: Negin Salgado RN CCDS Admit Date: 03/24/2022 12:08:00 AM Patient Name: Chris Marvin Visit Number: [id number] Discharge Date: ATTENTION: The Clinical Documentation Specialists (CDI) and [facility] Coding Staff appreciate your assistance in clarifying documentation. Please respond to the clarification below the line at the bottom and electronically sign. The CDI & [facility] Coding staff will review the response and follow-up if needed. Please note: Queries are made part of the Legal Health Record. If you have any questions, please contact the author of this message via ITS. Dr. Avila Bardales Sheet A left heel, stage II pressure ulcer is documented by Nursing, 03/24, wound assessment. Based on this information and the findings below, is there an additional diagnosis that is clinically appropriate for this patient? History/Risk Factors: 61-year-old male presents to the ED from nursing facility for gargling sound when he breathes. Medical History: MS, history of decubitus ulcers and contractures. 03/24, H&P. Clinical Indicators: Location: Right Heel Wound description: Length 1.5cm, Width 1.2cm, Depth 0.1 Distinct wound margins. Steph wound Excoriation, Texture scarring, Steph Wound Moisture: Dry/scaly. Steph- wound color Erythema. Treatment: Elevate, dressing foam with border, Turn and position every two hours Is there an additional diagnosis that is clinically appropriate for this patient? [ ] Right heel Pressure Ulcer Stage 2 [ ] Other condition, please specify [ ] Unable to determine Clinical Definitions: Stage 1 Pressure Ulcer: intact skin, non-blanching redness of local area Stage 2 Pressure Ulcer: Partial thickness, loss of dermis, pink wound bed Stage 3 Pressure Ulcer: Full thickness tissue loss Stage 4 Pressure Ulcer: Full thickness tissue loss with exposed bone, tendon, or muscle. Unstageable pressure ulcer: Full thickness tissue loss in which the base of the ulcer is covered by slough (yellow, vaz, suarez, green or brown) and/or eschar (vaz, brown or black) in the wound bed. (Template Last Revised: November 2020) Right heel Pressure Ulcer Stage 2 MTDD
[2022-03-27] MEDS: ERTAPENEM 1 GM in SODIUM CHLORIDE 0.9% 50 ML IVPB SCH (12:42)
--- NOTE | 2022-03-27 14:18 | P.GSCN ---
History of Present Illness Consult date: 03/27/22 History of present illness: CHIEF COMPLAINT: Shortness of breath Reason for consult: Ileus HISTORY OF PRESENT ILLNESS: This is a 61-year-old male who presented to the [facility] with shortness of breath. Patient was found to have evidence of urinary tract infection, dehydration and constipation. Does have a history of dysphagia with PEG tube placement and multiple sclerosis. Patient is bedbound. He has had previous history of constipation and fecal impaction. Abdominal x-ray shows constipation. There is retained fecal material in the left colon and in the rec demi. Patient is receiving lactulose through the PEG tube. They did try to give a soapsuds enema well with no results. Patient's abdomen is distended but soft. Patient apparently had some respiratory distress yesterday with a tachycardia without was related to antibiotics which have been changed. Patient received Benadryl and Solu-Medrol. Currently receiving IV fluids. His tube feeds are currently on hold. PAST MEDICAL HISTORY: See list. PAST SURGICAL HISTORY: See list. MEDICATIONS: See list. ALLERGIES: See list. SOCIAL HISTORY: No illicit drug use. REVIEW OF SYSTEMS: CONSTITUTIONAL: Denies fever or chills. HEENT: Denies blurred vision, vision changes, or eye pain. Denies hemoptysis CARDIOVASCULAR: Denies chest pain or pressure. RESPIRATORY: No shortness of breath. GASTROINTESTINAL: See HPI for pertinent findings HEMATOLOGIC: Denies bleeding disorders. GENITOURINARY: Denies any blood in urine or increased urinary frequency. SKIN: Denies pruitis. Denies rash. PHYSICAL EXAM: VITAL SIGNS: Reviewed GENERAL: Well-developed in no acute distress. HEENT: No sclera icterus. Extraocular movements grossly intact. Moist buccal mucosa. Head is atraumatic, normocephalic. No nasal drainage. ABDOMEN: Soft. Distended. NEUROLOGIC: Nonverbal. But awake. LABORATORY DATA: WBC is 8.8 for Hgb 10.3 platelets are 285 Sodium 139 potassium 4.3 creatinine 0.8 Lactic acid 2.8 down to 0.8 Positive UTI Covid and influenza screening negative IMAGING: Abdominal x-ray as stated above ASSESSMENT: 1. Abdominal distention 2. Constipation 3. Possible ileus 4. UTI PLAN: -Continue NG tube for decompression -Continue lactulose -Continue antibiotics for UTI -Continue supportive care -keep Tube feeds on hold -Continue IV fluids Physician Employment Services Director note has been reviewed by physician. Signing provider agrees with the documented findings, assessment, and plan of care. Past Medical History Past Medical History: Deep Vein Thrombosis (DVT), GERD/Reflux, Hypertension, Musculoskeletal Disorder, Neurologic Disorder, Pneumonia, Seizure Disorder, Skin Disorder Additional Past Medical History / Comment(s): Pt diagnosed with MS at the age of 39 yrs, eizure/pneumonia/UTI with sepsis/respirtory failure/vented, cognitive impairment, sister states when he is feeling well he could speak a few words/nod head appropriately/give thumbs up/roll eyes but when ill is nonverbal, pt has dysphagia/NPO with peg tube, contractures, last seizure 07/2020, trigeminal neuralgia, dysarthria/anarthria/neurogenic bladder with IDC-UTIs/sepsis, multiple pneumonias, recent seizure-last one 07/03/20, incontinent of stool, pt has had decubitus ulcer coccyx-sister unsure of skin condition at this time, past anemia r/t heparin/epistaxiis which involved nasal packing/transfusions, DVT bilateral arms, hypoxia, oxygen at 2L/NC, L femoral head fracture History of Any Multi-Drug Resistant Organisms: ESBL, MRSA, Other MDRO Year Discovered:: 03/09/21-MRSA; 11/23/19 ESBL-E.coli MDRO Source:: Abdomen-Peg site MRSA; Urine -ESBL Past Surgical History: Tonsillectomy Additional Past Surgical History / Comment(s): Gastrostomy, peg tube, I&D coccyx decubitius, bronchoscopy, bilateral lasik eye surgery. Past Anesthesia/Blood Transfusion Reactions: No Reported Reaction Additional Past Anesthesia/Blood Transfusion Reaction / Comm: Pt has received blood in past without reaction. Past Psychological History: Depression Smoking Status: Never smoker Past Alcohol Use History: None Reported Past Drug Use History: None Reported - Past Family History Father Family Medical History: Myocardial Infarction (MN) Mother Family Medical History: Hypertension, Myocardial Infarction ([place]) Additional Family Medical History / Comment(s): Mother of a MN at the age of 73 yrs. Medications and Allergies Home Medications Medication Instructions Recorded Confirmed Type Oxybutynin Chloride [Ditropan Oral 5 mg PEG/G-TUBE TID@0600,1400,2200 09/08/19 03/24/22 History Soln] Ipratropium-Albuterol Nebulize 3 ml INHALATION RT-Q6H 12/16/19 03/24/22 History [Duoneb 0.5 mg-3 mg/3 ml Soln] Baclofen [Lioresal] 10 mg PEG/G-TUBE TID@0600,1400,2200 07/16/20 03/24/22 History Aspirin 81 mg PEG/G-TUBE DAILY@0900 11/27/20 03/24/22 History Cranberry Fruit Extract [Cranberry] 500 mg PEG/G-TUBE DAILY@0900 11/27/20 03/24/22 History Magnesium Hydroxide [Milk of 7,200 mg PEG/G-TUBE Q72H PRN 03/07/21 03/24/22 History Magnesia Concentrate] Acetaminophen Tab [Tylenol] 650 mg PEG/G-TUBE Q6H PRN MDD 06/13/21 03/24/22 History 3GM/24HR Metoprolol Tartrate [Lopressor] 25 mg PEG/G-TUBE BID@0900,2100 06/13/21 03/24/22 History Metoprolol Tartrate [Lopressor] 50 mg PEG/G-TUBE BID@0900,2100 06/13/21 03/24/22 History Cholecalciferol [Vitamin D3 (25 25 mcg PEG/G-TUBE DAILY@0900 07/02/21 03/24/22 History Mcg = 1000 Iu)] carBAMazepine [carBAMazepine Oral 200 mg PEG/G-TUBE BID@0900,2100 07/02/21 03/24/22 History Susp] Amantadine Hcl Solution 50mg/5ml 100 mg PEG/G-TUBE DAILY@0900 12/22/21 03/24/22 History guaiFENesin [Mucinex] 600 mg PEG/G-TUBE BID@0900,2100 12/22/21 03/24/22 History Lactulose 20 gm PEG/G-TUBE TID@0600,1400,2200 01/03/22 03/24/22 History Scopolamine [Scopolamine 1 MG/72 1 patch TRANSDERM Q72H 01/03/22 03/24/22 History HR patch] Artificial Tears-Hypromellose 1 drops BOTH EYES Q8H 03/24/22 03/24/22 History [Artificial Tear Drops] Famotidine 40mg/5ml Susp 20 mg PEG/G-TUBE HS@209903/24/22 03/24/22 History Furosemide [Lasix] 40 mg PEG/G-TUBE DAILY@89903/24/22 03/24/22 History LORazepam ORAL CONC [Ativan 1 mg PO DAILY PRN 03/24/22 03/24/22 History Intensol] Lacosamide [Vimpat] 150 mg PEG/G-TUBE BID@0900,209903/24/22 03/24/22 History Levofloxacin [Levaquin] 500 mg PEG/G-TUBE DAILY@0903/24/22 03/24/22 History Levofloxacin [Levaquin] 500 mg PEG/G-TUBE ONCE 03/24/22 03/24/22 History Uti Stat 30 ml PEG/G-TUBE BID@0900,209903/24/22 03/24/22 History Allergies Allergy/AdvReac Type Severity Reaction Status Date / Time ceftolozane [From Zerbaxa] Allergy Rapid Verified 03/27/22 07:37 Heart Rate meropenem [From Merrem] Allergy Rash/Hives Verified 03/24/22 08:36 tazobactam [From Zerbaxa] Allergy Rapid Verified 03/27/22 07:37 Heart Rate Surgical - Exam Vital Signs Temp Pulse Resp BP Pulse Ox 99.3 F 86 24 127/93 96 03/23/22 18:58 03/23/22 18:58 03/23/22 18:58 03/23/22 18:58 03/23/22 18:58 Results - Labs 03/25/22 06:05 03/25/22 06:05 Abnormal Lab Results - Last 24 Hours (Table) 03/26/22 03/26/22 Range/Units 17:20 18:57 POC Glucose (mg/dL) 127 H (70-110) mg/dL Ur Specific [place] 1.037 H (1.001-1.035) Urine Protein 1+ H (Negative) Urine Ketones 1+ H (Negative) Ur Leukocyte Esterase Moderate H (Negative) Urine RBC 11 H (0-5) /hpf Urine WBC 16 H (0-5) /hpf Urine Mucus Moderate H (None) /hpf Microbiology - Last 24 Hours (Table) 03/24/22 05:00 Blood Culture - Preliminary Blood No Growth after 72 hours 03/26/22 17:20 Urine Culture - Preliminary Urine,Voided 03/23/22 21:47 Urine Culture - Final Urine,Voided Providencia stuartii Klebsiella pneumoniae
[2022-03-27] MEDS ORDERED: SODIUM CHLORIDE 0.9% 500 ML 250 ML IV ONE (15:39)
--- NOTE | 2022-03-27 21:38 | P.PN ---
Subjective This is a pleasant 61 years old male with past medical history of Deep Vein Thrombosis not on anticoagulation, GERD/Reflux, Hypertension, Musculoskeletal Disorder,Seizure Disorder, S, Pt diagnosed with MS at the age of 39 yrs, pt has dysphagia/NPO with peg tube, contractures, last seizure 07/2020, trigeminal neuralgia, dysarthria/anarthria/neurogenic bladder with IDC-UTIs/sepsis, multiple pneumonias, incontinent of stool, pt has had decubitus ulcer coccyx- sister , DVT bilateral arms, hypoxia, oxygen at 2L/NC, pt is baseline non-verbal with peg tube and aggarwal catheter in place Patient was sent from assisted for respiratory signs and symptoms timbo breathing. Patient was started on levofloxacin and sent to the emergency room. Per ER note patient had low-grade fever of 99-100 Vital showing no fever on admission. Is slightly tachypneic. The rest of vitals are stable and he is saturating 95% on room air. Hemoglobin 11.9, rest of CBC, INR, BMP and liver enzymes are unremarkable. Troponin slightly elevated at 0.37. Urinalysis is suspicious for infection. EKG showing normal sinus rhythm at [address]-T changes Chest x-ray: Subsegmental atelectasis and scarring of the lung. Normal heart. No change compared to old exam KUB: There is evidence of some constipation and large bowel ileus. No free air. Fecal material increased compared to old exam. Large bulky has increased In the emergency room he was started on Tylenol, normal saline was started on cefepime 03/25/2022 Patient looks calm, breathing quietly. No agitation, hemodynamically stable. Labs reviewed He remains on cefepime Follow-up urine culture 03/26/2022 patient still lying in bed looks comfortable, his breathing comfortably. No respiratory distress. No agitation, it looks at baseline with contractures Urine culture, gram-negative bacilli 2. Patient remains on cefepime per ID team. Follow up final results of urine culture 03/27/2022 Patient has some reaction yesterday and he was given some steroids and IV fluids. Also received Benadryl. He is currently on normal saline 75 mL/h and antibiotics were adjusted to advance as urine culture is growing Proteus and ESBL Klebsiella in his urine. Surgical team also on the case for constipation and possible ileus 2. Feeding is held Objective - Vital Signs Vital signs: Vital Signs Temp 98.9 F 03/27/22 05:00 Pulse 72 03/27/22 05:00 Resp 16 03/27/22 05:00 BP 108/68 03/27/22 05:00 Pulse Ox 99 03/27/22 05:00 FiO2 Intake & Output 03/26/22 03/27/22 03/27/22 18:59 06:59 18:59 Intake Total 750 Output Total 270 500 Balance -270 250 Weight 81.5 kg Intake: Intake, IV Titration 750 Amount Sodium Chloride 0.9% 1, 750 000 ml @ 75 mls/hr IV . [id number] [facility] Rx#:[id number] Output: Gastric Drainage 500 Urine 270 Other: Voiding Method Indwelling Catheter Indwelling Catheter Indwelling Catheter - Exam -GENERAL: The patient is nonverbal at baseline, not in any acute distress. Well developed, well nourished. CONTRACTURES ( chronic) HEENT: Pupils are round and equally reacting to light. EOMI. No scleral icterus. No conjunctival pallor. Normocephalic, atraumatic. No pharyngeal erythema. No thyromegaly. CARDIOVASCULAR: S1 and S2 present. No murmurs, rubs, or gallops. PULMONARY: Chest is clear to auscultation, no wheezing or crackles. -ABDOMEN: Soft, nontender, nondistended, normoactive bowel sounds. No palpable organomegaly. PEG tube in place. Indwelling Aggarwal catheter in place MUSCULOSKELETAL: No joint swelling or deformity. EXTREMITIES: No cyanosis, clubbing, or pedal edema. NEUROLOGICAL: Gross neurological examination did not reveal any focal deficits. SKIN: No rashes. No petechiae - Labs CBC & Chem 7: 03/25/22 06:05 03/25/22 06:05 Labs: Abnormal Lab Results - Last 24 Hours (Table) 03/26/22 03/26/22 Range/Units 17:20 18:57 POC Glucose (mg/dL) 127 H (70-110) mg/dL Ur Specific [place] 1.037 H (1.001-1.035) Urine Protein 1+ H (Negative) Urine Ketones 1+ H (Negative) Ur Leukocyte Esterase Moderate H (Negative) Urine RBC 11 H (0-5) /hpf Urine WBC 16 H (0-5) /hpf Urine Mucus Moderate H (None) /hpf Microbiology - Last 24 Hours (Table) 03/24/22 05:00 Blood Culture - Preliminary Blood No Growth after 72 hours 03/26/22 17:20 Urine Culture - Preliminary Urine,Voided 03/23/22 21:47 Urine Culture - Final Urine,Voided Providencia stuartii Klebsiella pneumoniae Assessment and Plan Assessment: Acute urinary tract infection, secondary to Proteus and ESBL Klebsiella Constipation/ileus Mild elevation of the troponin, most likely it's troponin leak constipation and fecal impaction Hypertension History of seizure History of multiple sclerosis History of dysphagia status post PEG tube History of contracture History of trigeminal neuralgia History of dysarthria history of neurogenic bladder status post indwelling Aggarwal catheter History of multiple pneumonias and UTIs. Pressure ulcers Chronic approximate respiratory failure included oxygen via nasal cannula Plan: This is a pleasant 61 years old male who presents with UTI continue with antibiotic therapy ID team , currently on [facility] infectious disease consult Keep holding PEG tube feeding, continue with IV fluid and lactulose with surgery team following the case closely Labs and medication were reviewed.. Continue same treatment. Continue with symptomatic treatment. Resume home medication. Monitor lytes and vitals. DVT and GI prophylaxis. Further recommendations depends on the clinical course of the patient DVT prophylaxis: Subcutaneous heparin GI Prophylaxis: Pepcid Prognosis is guarded
[2022-03-27] MEDS: FAMOTIDINE 8 MG/ML ORAL.SUSP PEG/G-TUBE SCH (21:55)
--- NOTE | 2022-03-28 07:13 | P.PN ---
Subjective Progress Note Date: 03/26/22 Principal diagnosis: Catheter associated urinary tract infection Patient is a 61-year-old male with past medical history significant for MS in this patient did have a history of recurrent UTIs and pneumonia has been presented to the hospital with mental status changes and coarse breath sounds has been diagnosed with catheter associated UTI. On today's evaluation that is 03/26/2022, patient continues to be afebrile, the patient is breathing comfortably on room air no vomiting or diarrhea has been reported by the nursing staff patient himself cannot provide any history Objective - Vital Signs Vital signs: Vital Signs Temp 99.1 F 03/26/22 13:00 Pulse 81 03/26/22 13:00 Resp 18 03/26/22 13:00 BP 122/76 03/26/22 13:00 Pulse Ox 95 03/26/22 13:00 FiO2 Intake & Output 03/25/22 03/26/22 03/26/22 18:59 06:59 18:59 Output Total 250 150 Balance -250 -150 Weight 81.5 kg 81.5 kg Output: Urine 250 150 Other: Voiding Method Indwelling Catheter Indwelling Catheter Indwelling Catheter - Exam GENERAL DESCRIPTION: Middle-age male lying in bed in no distress RESPIRATORY SYSTEM: Unlabored breathing , decreased breath sounds at bases HEART: S1 S2 regular rate and rhythm , ABDOMEN: Soft , no tenderness EXTREMITIES: No edema feet - Labs CBC & Chem 7: 03/25/22 06:05 03/25/22 06:05 Labs: Microbiology - Last 24 Hours (Table) 03/23/22 21:47 Urine Culture - Final Urine,Voided Providencia stuartii Klebsiella pneumoniae 03/24/22 05:00 Blood Culture - Preliminary Blood No Growth after 48 hours Assessment and Plan (1) UTI (urinary tract infection) Current Visit: Yes Status: Acute Code(s): N39.0 - URINARY TRACT INFECTION, SITE NOT SPECIFIED SNOMED Code(s): 94923305 Plan: 1patient presented to hospital with noisy breathing some shortness of breath and no hypoxemia and cloudy urine did have a positive UA and a low-grade fever likely representing catheter associated urinary tract infection. 2patient urine has been finalized with ESBL E. coli, patient did have questionable meropenem ALLERGY we will discontinue cefepime and start the patien t on Zerbexa Time with Patient: Less than 30
--- NOTE | 2022-03-28 07:17 | P.PN ---
Subjective Progress Note Date: 03/27/22 Principal diagnosis: Catheter associated urinary tract infection Patient is a 61-year-old male with past medical history significant for MS in this patient did have a history of recurrent UTIs and pneumonia has been presented to the hospital with mental status changes and coarse breath sounds has been diagnosed with catheter associated UTI. Patient currently did have tachycardia and flushing after he received Zerbexa which was discontinued On today's evaluation that is 03/27/2022, patient continues to be afebrile, the patient seemed to have some respiratory distress and currently on a nasal cannula oxygen and she has been placed with concern for possible ileus however no vomiting has been reported patient himself cannot provide any history Objective - Vital Signs Vital signs: Vital Signs Temp 98.9 F 03/27/22 05:00 Pulse 72 03/27/22 05:00 Resp 16 03/27/22 05:00 BP 108/68 03/27/22 05:00 Pulse Ox 99 03/27/22 05:00 FiO2 Intake & Output 03/26/22 03/27/22 03/27/22 18:59 06:59 18:59 Intake Total 750 Output Total 270 500 Balance -270 250 Weight 81.5 kg Intake: Intake, IV Titration 750 Amount Sodium Chloride 0.9% 1, 750 000 ml @ 75 mls/hr IV . [id number] [facility] Rx#:[id number] Output: Gastric Drainage 500 Urine 270 Other: Voiding Method Indwelling Catheter Indwelling Catheter Indwelling Catheter - Exam GENERAL DESCRIPTION: Middle-age male lying in bed in no distress RESPIRATORY SYSTEM: Unlabored breathing , decreased breath sounds at bases HEART: S1 S2 regular rate and rhythm , ABDOMEN: Soft , no tenderness EXTREMITIES: No edema feet - Labs CBC & Chem 7: 03/25/22 06:05 03/25/22 06:05 Labs: Abnormal Lab Results - Last 24 Hours (Table) 03/26/22 03/26/22 Range/Units 17:20 18:57 POC Glucose (mg/dL) 127 H (70-110) mg/dL Ur Specific [place] 1.037 H (1.001-1.035) Urine Protein 1+ H (Negative) Urine Ketones 1+ H (Negative) Ur Leukocyte Esterase Moderate H (Negative) Urine RBC 11 H (0-5) /hpf Urine WBC 16 H (0-5) /hpf Urine Mucus Moderate H (None) /hpf Microbiology - Last 24 Hours (Table) 03/24/22 05:00 Blood Culture - Preliminary Blood No Growth after 72 hours 03/26/22 17:20 Urine Culture - Preliminary Urine,Voided 03/23/22 21:47 Urine Culture - Final Urine,Voided Providencia stuartii Klebsiella pneumoniae Assessment and Plan (1) UTI (urinary tract infection) Current Visit: Yes Status: Acute Code(s): N39.0 - URINARY TRACT INFECTION, SITE NOT SPECIFIED SNOMED Code(s): 97453673 Plan: 1patient presented to hospital with noisy breathing some shortness of breath and no hypoxemia and cloudy urine did have a positive UA and a low-grade fever likely representing catheter associated urinary tract infection. 2patient urine has been finalized with ESBL E. coli, patient did have questionable meropenem ALLERGY , as the patient meropenem ALLERGY was documented in 2017 and the patient has received multiple courses of Invanz off towards as per discussion with the pharmacist, patient apparently did have reaction to Zerbexa last evening which has been discontinued we will start the patient on Invanz 1 g daily and monitor clinical course closely Time with Patient: Less than 30
[2022-03-28] MEDS: LACTULOSE 20 GM/30 ML CUP PEG/G-TUBE SCH ×3 (07:43→22:34)
[2022-03-28] MEDS: ASPIRIN 81 MG PEG/G-TUBE SCH (07:44)
[2022-03-28] MEDS: BACLOFEN 10 MG TAB PEG/G-TUBE SCH ×3 (07:44→23:57)
[2022-03-28] MEDS: LACOSAMIDE 150 MG TABLET PEG/G-TUBE SCH ×2 (07:44→20:51)
[2022-03-28] MEDS: HEPARIN SODIUM,PORCINE/PF 5,000 UNIT/0.5 ML SYRINGE SQ SCH ×3 (07:44→23:56)
[2022-03-28] MEDS: OXYBUTYNIN CHLORIDE 5 MG TAB PEG/G-TUBE SCH ×3 (07:44→23:57)
[2022-03-28 07:47] LABS: Anisocytosis Slight; Basophils # (A) 0.1 k/uL (0-0.2); Basophils % (A) 1 %; Eosinophils # (A) 0.8 k/uL (0-0.7); Eosinophils % (A) 9 %; HCT 34.7 % (39.0-53.0); HGB 10.7 gm/dL (13.0-17.5); Hypochromasia Marked; Lymphocytes # (A) 1.5 k/uL (1.0-4.8); Lymphocytes % (A) 18 %; MCH 22.8 pg (25.0-35.0); MCHC 30.8 g/dL (31.0-37.0); MCV 74.2 fL (80.0-100.0); Microcytosis Moderate; Monocytes # (A) 0.7 k/uL (0-1.0); Monocytes % (A) 8 %; Neutrophils % (A) 61 %; Platelet Count 305 k/uL (150-450); RBC 4.67 m/uL (4.30-5.90); RDW 17.3 % (11.5-15.5); WBC 8.2 k/uL (3.8-10.6)
[2022-03-28 08:10] LABS: African American GFR (CKD) >90 (>60 ml/min/1.73 sqM); Anion Gap 9 mmol/L; Blood Urea Nitrogen 14 mg/dL (9-20); Calcium 8.4 mg/dL (8.4-10.2); Carbon Dioxide 20 mmol/L (22-30); Chloride 111 mmol/L (98-107); Glucose 94 mg/dL (74-99); Non-African American GFR(CKD) >90 (>60 ml/min/1.73 sqM); Potassium 5.2 mmol/L (3.5-5.1); Sodium 140 mmol/L (137-145)
[2022-03-28] MEDS: METOPROLOL TARTRATE 50 MG TAB PEG/G-TUBE SCH ×2 (12:20→23:56)
[2022-03-28] MEDS: ERTAPENEM 1 GM in SODIUM CHLORIDE 0.9% 50 ML IVPB SCH (12:20)
[2022-03-28] MEDS: carBAMazepine 200 MG TAB PEG/G-TUBE SCH ×2 (12:20→23:57)
[2022-03-28] MEDS: METOPROLOL TARTRATE 25 MG TAB PEG/G-TUBE SCH ×2 (12:20→23:56)
[2022-03-28] MEDS: SODIUM CHLORIDE 0.9% 1,000 ML IV SCH ×2 (12:29→23:56)
--- NOTE | 2022-03-28 13:34 | P.PN ---
Subjective Progress Note Date: 03/28/22 CHIEF COMPLAINT: Ileus HISTORY OF PRESENT ILLNESS: Patient is sleeping in bed comfortably. Bowel movement recorded for last night. Nurse is unsure of the size of bowel movement. Patient does still have some abdominal distention. He did have 600 mL out of the NG tube during the night and 50 ML output this morning. Afebrile. WBC is 8.2 Patient seen and examined with Dr. cain PHYSICAL EXAM: VITAL SIGNS: Reviewed. GENERAL: Well-developed in no acute distress. HEENT: No sclera icterus. Extraocular movements grossly intact. Moist buccal mucosa. Head is atraumatic, normocephalic. ABDOMEN: Soft. Distended Nontender. ASSESSMENT: 1. Abdominal distention 2. Constipation 3. Possible ileus secondary to UTI 4. UTI PLAN: -Continue NG tube for decompression -Continue lactulose -Continue antibiotics for UTI -Continue supportive care -keep Tube feeds on hold -Continue IV fluids Physician Bakery Helper note has been reviewed by physician. Signing provider agrees with the documented findings, assessment, and plan of care. Objective - Vital Signs Vital signs: Vital Signs Temp 97.0 F L 03/28/22 11:29 Pulse 67 03/28/22 11:29 Resp 17 03/28/22 11:29 BP 132/73 03/28/22 11:29 Pulse Ox 99 03/28/22 11:29 FiO2 Intake & Output 03/27/22 03/28/22 03/28/22 18:59 06:59 18:59 Intake Total 920 Output Total 350 950 350 Balance -350 -30 -350 Weight 76 kg 70 kg Intake: Intake, IV Titration 900 Amount Sodium Chloride 0.9% 1, 900 000 ml @ 75 mls/hr IV . [id number] [facility] Rx#:[id number] Oral 0 Other 20 Output: Gastric Drainage 650 Urine 350 300 350 Other: Voiding Method Indwelling Catheter Indwelling Catheter Indwelling Catheter # Bowel Movements 1 - Labs CBC & Chem 7: 03/28/22 07:24 03/28/22 07:24 Labs: Abnormal Lab Results - Last 24 Hours (Table) 03/28/22 03/28/22 Range/Units 07:24 07:24 Hgb 10.7 L (13.0-17.5) gm/dL Hct 34.7 L (39.0-53.0) % MCV 74.2 L (80.0-100.0) fL MCH 22.8 L (25.0-35.0) pg MCHC 30.8 L (31.0-37.0) g/dL RDW 17.3 H (11.5-15.5) % Eosinophils # 0.8 H (0-0.7) k/uL Potassium 5.2 H (3.5-5.1) mmol/L Chloride 111 H (98-107) mmol/L Carbon Dioxide 20 L (22-30) mmol/L Creatinine 0.65 L (0.66-1.25) mg/dL Microbiology - Last 24 Hours (Table) 03/24/22 05:00 Blood Culture - Preliminary Blood No Growth after 96 hours 03/26/22 17:20 Urine Culture - Final Urine,Voided
[2022-03-28] MEDS: FAMOTIDINE 8 MG/ML ORAL.SUSP PEG/G-TUBE SCH (20:51)
--- NOTE | 2022-03-28 22:50 | P.PN ---
Subjective This is a pleasant 61 years old male with past medical history of Deep Vein Thrombosis not on anticoagulation, GERD/Reflux, Hypertension, Musculoskeletal Disorder,Seizure Disorder, S, Pt diagnosed with MS at the age of 39 yrs, pt has dysphagia/NPO with peg tube, contractures, last seizure 07/2020, trigeminal neuralgia, dysarthria/anarthria/neurogenic bladder with IDC-UTIs/sepsis, multiple pneumonias, incontinent of stool, pt has had decubitus ulcer coccyx- sister , DVT bilateral arms, hypoxia, oxygen at 2L/NC, pt is baseline non-verbal with peg tube and aggarwal catheter in place Patient was sent from [facility] for respiratory signs and symptoms timbo breathing. Patient was started on levofloxacin and sent to the emergency room. Per ER note patient had low-grade fever of 99-100 Vital showing no fever on admission. Is slightly tachypneic. The rest of vitals are stable and he is saturating 95% on room air. Hemoglobin 11.9, rest of CBC, INR, BMP and liver enzymes are unremarkable. Troponin slightly elevated at 0.37. Urinalysis is suspicious for infection. EKG showing normal sinus rhythm at [address]-T changes Chest x-ray: Subsegmental atelectasis and scarring of the lung. Normal heart. No change compared to old exam KUB: There is evidence of some constipation and large bowel ileus. No free air. Fecal material increased compared to old exam. Large bulky has increased In the emergency room he was started on Tylenol, normal saline was started on cefepime 03/25/2022 Patient looks calm, breathing quietly. No agitation, hemodynamically stable. Labs reviewed He remains on cefepime Follow-up urine culture 03/26/2022 patient still lying in bed looks comfortable, his breathing comfortably. No respiratory distress. No agitation, it looks at baseline with contractures Urine culture, gram-negative bacilli 2. Patient remains on cefepime per ID team. Follow up final results of urine culture 03/27/2022 Patient has some reaction yesterday and he was given some steroids and IV fluids. Also received Benadryl. He is currently on normal saline 75 mL/h and antibiotics were adjusted to advance as urine culture is growing Proteus and ESBL Klebsiella in his urine. Surgical team also on the case for constipation and possible ileus 2. Feeding is held 03/28/2022 Patient been clinically stable since yesterday. No more breathing difficulty or any hypertensive episodes. NG tube in place and tube feed is on hold. He is still on Invanz for ESBL Klebsiella causing ileus Objective - Vital Signs Vital signs: Vital Signs Temp 97.8 F 03/28/22 04:48 Pulse 60 03/28/22 04:48 Resp 18 03/28/22 04:48 BP 111/66 03/28/22 04:48 Pulse Ox 92 L 03/28/22 08:04 FiO2 Intake & Output 03/27/22 03/28/22 03/28/22 18:59 06:59 18:59 Intake Total 920 Output Total 350 950 Balance -350 -30 Weight 76 kg 70 kg Intake: Intake, IV Titration 900 Amount Sodium Chloride 0.9% 1, 900 000 ml @ 75 mls/hr IV . [id number] [facility] Rx#:[id number] Oral 0 Other 20 Output: Gastric Drainage 650 Urine 350 300 Other: Voiding Method Indwelling Catheter Indwelling Catheter # Bowel Movements 1 - Exam -GENERAL: The patient is nonverbal at baseline, not in any acute distress. Well developed, well nourished. CONTRACTURES ( chronic) HEENT: Pupils are round and equally reacting to light. EOMI. No scleral icterus. No conjunctival pallor. Normocephalic, atraumatic. No pharyngeal erythema. No thyromegaly. CARDIOVASCULAR: S1 and S2 present. No murmurs, rubs, or gallops. PULMONARY: Chest is clear to auscultation, no wheezing or crackles. -ABDOMEN: Soft, nontender, nondistended, normoactive bowel sounds. No palpable organomegaly. PEG tube in place. Indwelling Aggarwal catheter in place MUSCULOSKELETAL: No joint swelling or deformity. EXTREMITIES: No cyanosis, clubbing, or pedal edema. NEUROLOGICAL: Gross neurological examination did not reveal any focal deficits. SKIN: No rashes. No petechiae - Labs CBC & Chem 7: 03/28/22 07:24 03/28/22 07:24 Labs: Abnormal Lab Results - Last 24 Hours (Table) 03/28/22 03/28/22 Range/Units 07:24 07:24 Hgb 10.7 L (13.0-17.5) gm/dL Hct 34.7 L (39.0-53.0) % MCV 74.2 L (80.0-100.0) fL MCH 22.8 L (25.0-35.0) pg MCHC 30.8 L (31.0-37.0) g/dL RDW 17.3 H (11.5-15.5) % Eosinophils # 0.8 H (0-0.7) k/uL Potassium 5.2 H (3.5-5.1) mmol/L Chloride 111 H (98-107) mmol/L Carbon Dioxide 20 L (22-30) mmol/L Creatinine 0.65 L (0.66-1.25) mg/dL Microbiology - Last 24 Hours (Table) 03/24/22 05:00 Blood Culture - Preliminary Blood No Growth after 96 hours 03/26/22 17:20 Urine Culture - Final Urine,Voided Assessment and Plan Assessment: Acute urinary tract infection, secondary to Proteus and ESBL Klebsiella Constipation/ileus Mild elevation of the troponin, most likely it's troponin leak constipation and fecal impaction Hypertension History of seizure History of multiple sclerosis History of dysphagia status post PEG tube History of contracture History of trigeminal neuralgia History of dysarthria history of neurogenic bladder status post indwelling Aggarwal catheter History of multiple pneumonias and UTIs. Pressure ulcers Chronic approximate respiratory failure included oxygen via nasal cannula Plan: This is a pleasant 61 years old male who presents with UTI continue with antibiotic therapy ID team , currently on [facility] infectious disease consult Keep holding PEG tube feeding, continue with IV fluid and lactulose with surgery team following the case closely Labs and medication were reviewed.. Continue same treatment. Continue with symptomatic treatment. Resume home medication. Monitor lytes and vitals. DVT and GI prophylaxis. Further recommendations depends on the clinical course of the patient DVT prophylaxis: Subcutaneous heparin GI Prophylaxis: Pepcid Prognosis is guarded
[2022-03-28] MEDS: ACETAMINOPHEN TAB 325 MG TAB PEG/G-TUBE PRN (23:56)
[2022-03-29] MEDS: HEPARIN SODIUM,PORCINE/PF 5,000 UNIT/0.5 ML SYRINGE SQ SCH ×2 (09:12→16:50)
[2022-03-29] MEDS: LACTULOSE 20 GM/30 ML CUP PEG/G-TUBE SCH ×3 (09:12→22:04)
[2022-03-29] MEDS: LACOSAMIDE 150 MG TABLET PEG/G-TUBE SCH ×2 (09:13→22:04)
[2022-03-29] MEDS: BACLOFEN 10 MG TAB PEG/G-TUBE SCH ×2 (09:13→16:28)
[2022-03-29] MEDS: ASPIRIN 81 MG PEG/G-TUBE SCH (09:13)
[2022-03-29] MEDS: OXYBUTYNIN CHLORIDE 5 MG TAB PEG/G-TUBE SCH ×2 (09:13→16:28)
[2022-03-29] MEDS: ERTAPENEM 1 GM in SODIUM CHLORIDE 0.9% 50 ML IVPB SCH (13:25)
[2022-03-29] MEDS: METOPROLOL TARTRATE 25 MG TAB PEG/G-TUBE SCH (13:26)
[2022-03-29] MEDS: METOPROLOL TARTRATE 50 MG TAB PEG/G-TUBE SCH (13:26)
[2022-03-29] MEDS: carBAMazepine 200 MG TAB PEG/G-TUBE SCH (13:26)
--- NOTE | 2022-03-29 14:54 | P.PN ---
Subjective Progress Note Date: 03/29/22 CHIEF COMPLAINT: Ileus HISTORY OF PRESENT ILLNESS: The patient's abdomen remains distended. Per nursing staff there was a bowel movement yesterday. Unfortunately the size of the bowel movement was uncharted and is unknown. Tube feedings remain on hold. NG tube with about 500 mL of brownish output. Output is darker in color today. And he has had increased output since this morning. Low-grade temp 99. WBC was 8.2 yesterday Patient seen and examined with Dr. cain PHYSICAL EXAM: VITAL SIGNS: Reviewed. GENERAL: Well-developed in no acute distress. HEENT: No sclera icterus. Extraocular movements grossly intact. Moist buccal mucosa. Head is atraumatic, normocephalic. ABDOMEN: Soft. Distended Nontender. ASSESSMENT: 1. Abdominal distention 2. Constipation 3. Possible ileus secondary to UTI 4. UTI PLAN: -Computed tomography scan abdomen and pelvis ordered due to patient's abdominal distention that is not improving and increased output through NG tube. -Continue NG tube for decompression -Continue lactulose -Continue antibiotics for UTI -Continue supportive care -keep Tube feeds on hold -Continue IV fluids Physician Stucco Plasterer note has been reviewed by physician. Signing provider agrees with the documented findings, assessment, and plan of care. Objective - Vital Signs Vital signs: Vital Signs Temp 99.0 F 03/29/22 11:20 Pulse 70 03/29/22 11:20 Resp 17 03/29/22 11:20 BP 126/81 03/29/22 11:20 Pulse Ox 99 03/29/22 11:20 FiO2 Intake & Output 03/28/22 03/29/22 03/29/22 18:59 06:59 18:59 Intake Total 950 Output Total 1050 350 300 Balance -100 -350 -300 Weight 70 kg 77 kg Intake: Intake, IV Titration 950 Amount Ertapenem 1 gm In Sodium 50 Chloride 0.9% 50 ml @ 100 mls/hr IVPB DAILY@1200 [facility] Rx#:[id number] Sodium Chloride 0.9% 1, 900 000 ml @ 75 mls/hr IV . [id number] [facility] Rx#:[id number] Output: Gastric Drainage 400 Urine 650 350 300 Other: Voiding Method Indwelling Catheter Indwelling Catheter Indwelling Catheter - Labs CBC & Chem 7: 03/28/22 07:24 03/28/22 07:24 Labs: Microbiology - Last 24 Hours (Table) 03/24/22 05:00 Blood Culture - Preliminary Blood No Growth after 120 hours
[2022-03-29] MEDS: IOPAMIDOL CONTRAST (ORAL USE) VIAL PO PRN ×2 (15:25→16:29)
[2022-03-29] MEDS: SODIUM CHLORIDE 0.9% 1,000 ML IV SCH (16:28)
--- NOTE | 2022-03-29 17:47 | CT ---
EXAMINATION TYPE: CT abdomen pelvis wo con DATE OF EXAM: 03/29/2022 COMPARISON: 01/13/2022 INDICATION: abdominal distention DLP: 1235.10 mGycm, Automated exposure control for dose reduction was used. CONTRAST: 0 mL of Isovue 300. Study performed with Oral Contrast TECHNIQUE: Axial images were obtained from above the diaphragm to the pubic rami in the axial plane a t 5 mm thick sections. Reconstructed images are reviewed on the computer in the coronal plane. FINDINGS: Limited CT sections are obtained the lung bases. There is minimal bilateral pleural effusions. Adjac ent compressive atelectasis appears to be present.. Coronary artery calcification is present. CT ABDOMEN: Liver: Normal Spleen: Normal Pancreas: Normal Adrenal glands: The adrenal glands are normal. Gallbladder: Normal Kidneys: No masses are evident. No hydronephrosis is present. No cysts are present. No renal stone s are evident. Aorta: Vascular calcification is within the aorta. Inferior vena cava: Normal. CT PELVIS: Patent tube is in the midline. Nasogastric tube has its tip within the distal stomach. No suspicious bowel changes are evident. Fecal debris is within the colon. Large fecal bolus is at th e distal colon and rectum. There are loops of bowel which are incompletely distended or lack oral con trast limiting their evaluation. Appendix: Normal as visualized. No suspicious dilated tubular structure or inflammatory changes are e vident. Urinary bladder: Decompressed with a catheter Genitourinary structures: Prostate appears small. Osseous structures: Degenerative changes of the bilateral hips. There is a chronic appearing fracture of the left hip. IMPRESSIONS: 1. No suspicious bowel abnormality to suggest obstruction. Oral contrast extends to the transverse c olon. 2. There is a large fecal bolus at the rectum with fecal debris within the distal sigmoid and separat jessica the descending colon. Consider fecal impaction.
[2022-03-29] MEDS: FAMOTIDINE 8 MG/ML ORAL.SUSP PEG/G-TUBE SCH (22:23)
[2022-03-30] MEDS: METOPROLOL TARTRATE 50 MG TAB PEG/G-TUBE SCH ×2 (00:39→12:53)
[2022-03-30] MEDS: carBAMazepine 200 MG TAB PEG/G-TUBE SCH ×2 (00:39→12:53)
[2022-03-30] MEDS: BACLOFEN 10 MG TAB PEG/G-TUBE SCH ×3 (00:39→17:00)
[2022-03-30] MEDS: METOPROLOL TARTRATE 25 MG TAB PEG/G-TUBE SCH ×2 (00:39→12:53)
[2022-03-30] MEDS: HEPARIN SODIUM,PORCINE/PF 5,000 UNIT/0.5 ML SYRINGE SQ SCH ×3 (00:39→17:00)
[2022-03-30] MEDS: OXYBUTYNIN CHLORIDE 5 MG TAB PEG/G-TUBE SCH ×3 (00:39→17:00)
--- NOTE | 2022-03-30 01:33 | P.PN ---
Subjective This is a pleasant 61 years old male with past medical history of Deep Vein Thrombosis not on anticoagulation, GERD/Reflux, Hypertension, Musculoskeletal Disorder,Seizure Disorder, S, Pt diagnosed with MS at the age of 39 yrs, pt has dysphagia/NPO with peg tube, contractures, last seizure 07/2020, trigeminal neuralgia, dysarthria/anarthria/neurogenic bladder with IDC-UTIs/sepsis, multiple pneumonias, incontinent of stool, pt has had decubitus ulcer coccyx- sister , DVT bilateral arms, hypoxia, oxygen at 2L/NC, pt is baseline non-verbal with peg tube and aggarwal catheter in place Patient was sent from [facility] for respiratory signs and symptoms timbo breathing. Patient was started on levofloxacin and sent to the emergency room. Per ER note patient had low-grade fever of 99-100 Vital showing no fever on admission. Is slightly tachypneic. The rest of vitals are stable and he is saturating 95% on room air. Hemoglobin 11.9, rest of CBC, INR, BMP and liver enzymes are unremarkable. Troponin slightly elevated at 0.37. Urinalysis is suspicious for infection. EKG showing normal sinus rhythm at [address]-T changes Chest x-ray: Subsegmental atelectasis and scarring of the lung. Normal heart. No change compared to old exam KUB: There is evidence of some constipation and large bowel ileus. No free air. Fecal material increased compared to old exam. Large bulky has increased In the emergency room he was started on Tylenol, normal saline was started on cefepime 03/25/2022 Patient looks calm, breathing quietly. No agitation, hemodynamically stable. Labs reviewed He remains on cefepime Follow-up urine culture 03/26/2022 patient still lying in bed looks comfortable, his breathing comfortably. No respiratory distress. No agitation, it looks at baseline with contractures Urine culture, gram-negative bacilli 2. Patient remains on cefepime per ID team. Follow up final results of urine culture 03/27/2022 Patient has some reaction yesterday and he was given some steroids and IV fluids. Also received Benadryl. He is currently on normal saline 75 mL/h and antibiotics were adjusted to advance as urine culture is growing Proteus and ESBL Klebsiella in his urine. Surgical team also on the case for constipation and possible ileus 2. Feeding is held 03/28/2022 Patient been clinically stable since yesterday. No more breathing difficulty or any hypertensive episodes. NG tube in place and tube feed is on hold. He is still on Invanz for ESBL Klebsiella causing ileus 03/29/2022 Patient remains clinically awake, no much difference than yesterday, nonverbal at baseline. Still has NG tube Tube feed is on hold Still have no bowel movement. CT of the abdomen and pelvis without contrast showing no obstruction and fecal impaction Patient is on lactulose and surgery team of the case. Objective - Vital Signs Vital signs: Vital Signs Temp 98.7 F 03/29/22 04:31 Pulse 71 03/29/22 08:00 Resp 16 03/29/22 08:00 BP 157/75 03/29/22 04:31 Pulse Ox 98 03/29/22 04:31 FiO2 Intake & Output 03/28/22 03/29/22 03/29/22 18:59 06:59 18:59 Intake Total 950 Output Total 1050 350 300 Balance -100 -350 -300 Weight 70 kg 77 kg Intake: Intake, IV Titration 950 Amount Ertapenem 1 gm In Sodium 50 Chloride 0.9% 50 ml @ 100 mls/hr IVPB DAILY@1200 [facility] Rx#:[id number] Sodium Chloride 0.9% 1, 900 000 ml @ 75 mls/hr IV . [id number] [facility] Rx#:[id number] Output: Gastric Drainage 400 Urine 650 350 300 Other: Voiding Method Indwelling Catheter Indwelling Catheter Indwelling Catheter - Exam -GENERAL: The patient is nonverbal at baseline, not in any acute distress. Well developed, well nourished. CONTRACTURES ( chronic) HEENT: Pupils are round and equally reacting to light. EOMI. No scleral icterus. No conjunctival pallor. Normocephalic, atraumatic. No pharyngeal erythema. No t hyromegaly. CARDIOVASCULAR: S1 and S2 present. No murmurs, rubs, or gallops. PULMONARY: Chest is clear to auscultation, no wheezing or crackles. -ABDOMEN: Soft, nontender, nondistended, normoactive bowel sounds. No palpable organomegaly. PEG tube in place. Indwelling Aggarwal catheter in place MUSCULOSKELETAL: No joint swelling or deformity. EXTREMITIES: No cyanosis, clubbing, or pedal edema. NEUROLOGICAL: Gross neurological examination did not reveal any focal deficits. SKIN: No rashes. No petechiae - Labs CBC & Chem 7: 03/28/22 07:24 03/28/22 07:24 Labs: Microbiology - Last 24 Hours (Table) 03/24/22 05:00 Blood Culture - Preliminary Blood No Growth after 120 hours Assessment and Plan Assessment: Acute urinary tract infection, secondary to Proteus and ESBL Klebsiella Constipation/ileus Mild elevation of the troponin, most likely it's troponin leak constipation and fecal impaction Hypertension History of seizure History of multiple sclerosis History of dysphagia status post PEG tube History of contracture History of trigeminal neuralgia History of dysarthria history of neurogenic bladder status post indwelling Aggarwal catheter History of multiple pneumonias and UTIs. Pressure ulcers Chronic approximate respiratory failure included oxygen via nasal cannula Plan: This is a pleasant 61 years old male who presents with UTI continue with antibiotic therapy ID team , [facility] infectious disease consult Keep holding PEG tube feeding, continue with IV fluid and lactulose with surgery team following the case closely Labs and medication were reviewed.. Continue same treatment. Continue with symptomatic treatment. Resume home medication. Monitor lytes and vitals. DVT and GI prophylaxis. Further recommendations depends on the clinical course of the patient DVT prophylaxis: Subcutaneous heparin GI Prophylaxis: Pepcid Prognosis is guarded
[2022-03-30] MEDS: SODIUM CHLORIDE 0.9% 1,000 ML IV SCH ×3 (04:38→23:42)
[2022-03-30] MEDS: LACTULOSE 20 GM/30 ML CUP PEG/G-TUBE SCH ×3 (07:20→21:05)
[2022-03-30] MEDS: ASPIRIN 81 MG PEG/G-TUBE SCH (07:21)
[2022-03-30] MEDS: LACOSAMIDE 150 MG TABLET PEG/G-TUBE SCH ×2 (07:22→21:05)
--- NOTE | 2022-03-30 10:30 | CDI ---
Documentation Clarification Form Date: 03/30/2022 09:57:04 AM From: Negin Salgado RN CCDS Admit Date: 03/24/2022 12:08:00 AM Patient Name: Chris Marvin Visit Number: [id number] Discharge Date: ATTENTION: The Clinical Documentation Specialists (CDI) and [facility] Coding Staff appreciate your assistance in clarifying documentation. Please respond to the clarification below the line at the bottom and electronically sign. The CDI & [facility] Coding staff will review the response and follow-up if needed. Please note: Queries are made part of the Legal Health Record. If you have any questions, please contact the author of this message via ITS. Dr. Avila Bardales Sheet Your patient has Bilateral lower extremity contractures, muscle tone atrophy - flaccid, musculoskeletal not with in normal limits, 03/25, Nursing Physical assessment. Based on this information and the findings below, is there an additional diagnosis that is clinically appropriate for this patient? History/Risk Factors: 61-year-old male presents to the ED from [facility] for having a gargling sound when he breathes. Medical History: MS diagnosed at age 39, nonverbal, dysphagia/npo with peg tube, neurogenic bladder and decubitus ulcers. 03/24, H&P Clinical Indicators: 03/24,H&P: The patient is nonverbal at baseline, not in any acute distress. Well developed, Well nourished. Contractures. 03/29, Nursing Assessment: Right upper extremity motor strength rigid / absent; hand grasp weak; Left upper extremity motor strength Severe weakness / spastic; hand grasp absent; Bilateral lower extremities: Motor strength Rigid absent. Treatment: Bedrest, Repositioning Q Two hours and checking hourly, Absorbent under pad, pillow elevating heels. Feeding by peg tube. Is there an additional diagnosis that is clinically appropriate for this patient? [ ] Functional Quadriplegia [ ] Other (please specify) [ ] Unable to determine (Template Last Revised: November 2020) Spastic paralytic quadriplegic MTDD
[2022-03-30 10:32] LABS: HCT 38.5 % (39.6-50.0); HGB 10.9 g/dL (13.0-17.0); MCH 21.1 pg (27.0-32.0); MCHC 28.3 g/dL (32.0-37.0); MCV 74.6 fL (80.0-97.0); Mean Platelet Volume 10.5 fL (9.5-12.2); NRBC Per 100 WBC 0 /100 WBCS (0.0-0.0); Platelet Count 415 X 10*3/uL (140-440); RBC 5.16 X 10*6/uL (4.40-5.60); RDW 17.4 % (11.5-14.5); WBC 5.75 X 10*3/uL (4.50-10.00)
[2022-03-30 11:31] LABS: Basophils # (A) 0.02 X 10*3/uL (0.00-0.10); Basophils % (A) 0.3 %; Eosinophils # (A) 0.16 X 10*3/uL (0.04-0.35); Eosinophils % (A) 2.8 %; Immature Grans, Automated 0.3 %; Lymphocytes # (A) 0.62 X 10*3/uL (0.90-5.00); Lymphocytes % (A) 10.8 %; Monocytes % (A) 5.2 %; Neutrophils # (A) 4.63 X 10*3/uL (1.80-7.70); Neutrophils % (A) 80.6 %
[2022-03-30 11:54] LABS: African American GFR (CKD) 117.2 (60.0-200.0); Anion Gap 17.6 mmol/L (10.00-18.00); Blood Urea Nitrogen 10.5 mg/dL (9.0-27.0); Calcium 8.8 mg/dL (8.7-10.3); Carbon Dioxide 25.4 mmol/L (20.0-27.5); Non-African American GFR(CKD) 101.1 (60.0-200.0); Potassium 4.1 mmol/L (3.5-5.5)
[2022-03-30] MEDS: ERTAPENEM 1 GM in SODIUM CHLORIDE 0.9% 50 ML IVPB SCH (12:53)
--- NOTE | 2022-03-30 14:48 | P.PN ---
Subjective Progress Note Date: 03/30/22 CHIEF COMPLAINT: Ileus HISTORY OF PRESENT ILLNESS: The patient's abdomen remains distended. But is softer than yesterday. NG tube with 250 mL of bilious output. 850 output through the night. Last BM 03/28. CT demonstrated no bowel obstruction did show large fecal bolus at the rectum suspect fecal impaction. WBC 5.75 Hgb 10.9 sodium 143 potassium 4.1 creatinine 0.7 Patient seen and examined with Dr. cain PHYSICAL EXAM: VITAL SIGNS: Reviewed. GENERAL: Well-developed in no acute distress. HEENT: No sclera icterus. Extraocular movements grossly intact. Moist buccal mucosa. Head is atraumatic, normocephalic. ABDOMEN: Soft. Distended Nontender. ASSESSMENT: 1. Abdominal distention with evidence of fecal impaction on CAT scan 2. Constipation 3. Possible ileus secondary to UTI 4. UTI PLAN: -Soapsuds enemas ordered to help relieve fecal impaction -Continue NG tube for decompression -Continue lactulose -Continue antibiotics for UTI -Continue supportive care -keep Tube feeds on hold -Continue IV fluids Physician Devulcanizer Charger note has been reviewed by physician. Signing provider agrees with the documented findings, assessment, and plan of care. Objective - Vital Signs Vital signs: Vital Signs Temp 98.9 F 03/30/22 11:27 Pulse 85 03/30/22 11:27 Resp 18 03/30/22 11:27 BP 120/65 03/30/22 11:27 Pulse Ox 100 03/30/22 11:27 FiO2 Intake & Output 03/29/22 03/30/22 03/30/22 18:59 06:59 18:59 Output Total 900 1850 Balance -900 -1850 Weight 79.5 kg Output: Gastric Drainage 1550 Urine 900 300 Other: Voiding Method Indwelling Catheter Indwelling Catheter - Labs CBC & Chem 7: 03/30/22 07:10 03/30/22 07:10 Labs: Abnormal Lab Results - Last 24 Hours (Table) 03/30/22 Range/Units 07:10 Hgb 10.9 L (13.0-17.0) g/dL Hct 38.5 L (39.6-50.0) % MCV 74.6 L (80.0-97.0) fL MCH 21.1 L (27.0-32.0) pg MCHC 28.3 L (32.0-37.0) g/dL RDW 17.4 H (11.5-14.5) % Lymphocytes # 0.62 L (0.90-5.00) X 10*3/uL Microbiology - Last 24 Hours (Table) 03/24/22 05:00 Blood Culture - Final Blood No Growth after 144 hours
[2022-03-30] MEDS: FAMOTIDINE 8 MG/ML ORAL.SUSP PEG/G-TUBE SCH (21:05)
--- NOTE | 2022-03-30 22:11 | P.PN ---
Subjective This is a pleasant 61 years old male with past medical history of Deep Vein Thrombosis not on anticoagulation, GERD/Reflux, Hypertension, Musculoskeletal Disorder,Seizure Disorder, S, Pt diagnosed with MS at the age of 39 yrs, pt has dysphagia/NPO with peg tube, contractures, last seizure 07/2020, trigeminal neuralgia, dysarthria/anarthria/neurogenic bladder with IDC-UTIs/sepsis, multiple pneumonias, incontinent of stool, pt has had decubitus ulcer coccyx- sister , DVT bilateral arms, hypoxia, oxygen at 2L/NC, pt is baseline non-verbal with peg tube and aggarwal catheter in place Patient was [facility] for respiratory signs and symptoms timbo breathing. Patient was started on levofloxacin and sent to the emergency room. Per ER note patient had low-grade fever of 99-100 Vital showing no fever on admission. Is slightly tachypneic. The rest of vitals are stable and he is saturating 95% on room air. Hemoglobin 11.9, rest of CBC, INR, BMP and liver enzymes are unremarkable. Troponin slightly elevated at 0.37. Urinalysis is suspicious for infection. EKG showing normal sinus rhythm at [address]-T changes Chest x-ray: Subsegmental atelectasis and scarring of the lung. Normal heart. No change compared to old exam KUB: There is evidence of some constipation and large bowel ileus. No free air. Fecal material increased compared to old exam. Large bulky has increased In the emergency room he was started on Tylenol, normal saline was started on cefepime 03/25/2022 Patient looks calm, breathing quietly. No agitation, hemodynamically stable. Labs reviewed He remains on cefepime Follow-up urine culture 03/26/2022 patient still lying in bed looks comfortable, his breathing comfortably. No respiratory distress. No agitation, it looks at baseline with contractures Urine culture, gram-negative bacilli 2. Patient remains on cefepime per ID team. Follow up final results of urine culture 03/27/2022 Patient has some reaction yesterday and he was given some steroids and IV fluids. Also received Benadryl. He is currently on normal saline 75 mL/h and antibiotics were adjusted to advance as urine culture is growing Proteus and ESBL Klebsiella in his urine. Surgical team also on the case for constipation and possible ileus 2. Feeding is held 03/28/2022 Patient been clinically stable since yesterday. No more breathing difficulty or any hypertensive episodes. NG tube in place and tube feed is on hold. He is still on Invanz for ESBL Klebsiella causing ileus 03/29/2022 Patient remains clinically awake, no much difference than yesterday, nonverbal at baseline. Still has NG tube Tube feed is on hold Still have no bowel movement. CT of the abdomen and pelvis without contrast showing no obstruction and fecal impaction Patient is on lactulose and surgery team of the case. 03/30/2022 Patient today clinically stable No more episodes of breathing difficulty or hypertension. NG tube still in place, patient had fecal impaction and so started enema is ordered by surgery team Abdominal benign Tube feedings: Hold Patient remains on Invanz for ESBL Klebsiella Objective - Vital Signs Vital signs: Vital Signs Temp 98.9 F 03/30/22 11:27 Pulse 85 03/30/22 11:27 Resp 18 03/30/22 11:27 BP 120/65 03/30/22 11:27 Pulse Ox 100 03/30/22 11:27 FiO2 Intake & Output 03/29/22 03/30/22 03/30/22 18:59 06:59 18:59 Output Total 900 1850 Balance -900 -1850 Weight 79.5 kg Output: Gastric Drainage 1550 Urine 900 300 Other: Voiding Method Indwelling Catheter Indwelling Catheter - Exam -GENERAL: The patient is nonverbal at baseline, not in any acute distress. Well developed, well nourished. CONTRACTURES ( chronic) HEENT: Pupils are round and equally reacting to light. EOMI. No scleral icterus. No conjunctival pallor. Normocephalic, atraumatic. No pharyngeal erythema. No thyromegaly. CARDIOVASCULAR: S1 and S2 present. No murmurs, rubs, or gallops. PULMONARY: Chest is clear to auscultation, no wheezing or crackles. -ABDOMEN: Soft, nontender, nondistended, normoactive bowel sounds. No palpable organomegaly. PEG tube in place. Indwelling Aggarwal catheter in place MUSCULOSKELETAL: No joint swelling or deformity. EXTREMITIES: No cyanosis, clubbing, or pedal edema. NEUROLOGICAL: Gross neurological examination did not reveal any focal deficits. SKIN: No rashes. No petechiae - Labs CBC & Chem 7: 03/30/22 07:10 03/30/22 07:10 Labs: Abnormal Lab Results - Last 24 Hours (Table) 03/30/22 Range/Units 07:10 Hgb 10.9 L (13.0-17.0) g/dL Hct 38.5 L (39.6-50.0) % MCV 74.6 L (80.0-97.0) fL MCH 21.1 L (27.0-32.0) pg MCHC 28.3 L (32.0-37.0) g/dL RDW 17.4 H (11.5-14.5) % Lymphocytes # 0.62 L (0.90-5.00) X 10*3/uL Microbiology - Last 24 Hours (Table) 03/24/22 05:00 Blood Culture - Final Blood No Growth after 144 hours Assessment and Plan Assessment: Acute urinary tract infection, secondary to Proteus and ESBL Klebsiella Constipation/ileus Mild elevation of the troponin, most likely it's troponin leak constipation and fecal impaction Hypertension History of seizure History of multiple sclerosis History of dysphagia status post PEG tube History of contracture History of trigeminal neuralgia History of dysarthria history of neurogenic bladder status post indwelling Aggarwal catheter History of multiple pneumonias and UTIs. Pressure ulcers Chronic approximate respiratory failure included oxygen via nasal cannula Plan: This is a pleasant 61 years old male who presents with UTI continue with antibiotic therapy ID team , currently on [facility] infectious disease consult Keep holding PEG tube feeding, continue with IV fluid and lactulose with surgery team following the case closely Labs and medication were reviewed.. Continue same treatment. Continue with symptomatic treatment. Resume home medication. Monitor lytes and vitals. DVT and GI prophylaxis. Further recommendations depends on the clinical course of the patient DVT prophylaxis: Subcutaneous heparin GI Prophylaxis: Pepcid Prognosis is guarded
[2022-03-31] MEDS: carBAMazepine 200 MG TAB PEG/G-TUBE SCH ×2 (00:16→11:58)
[2022-03-31] MEDS: HEPARIN SODIUM,PORCINE/PF 5,000 UNIT/0.5 ML SYRINGE SQ SCH ×3 (00:16→15:41)
[2022-03-31] MEDS: METOPROLOL TARTRATE 25 MG TAB PEG/G-TUBE SCH ×2 (00:16→11:57)
[2022-03-31] MEDS: OXYBUTYNIN CHLORIDE 5 MG TAB PEG/G-TUBE SCH ×3 (00:16→15:41)
[2022-03-31] MEDS: BACLOFEN 10 MG TAB PEG/G-TUBE SCH ×3 (00:17→15:41)
[2022-03-31] MEDS: METOPROLOL TARTRATE 50 MG TAB PEG/G-TUBE SCH ×2 (00:19→11:57)
[2022-03-31] MEDS: ERTAPENEM 1 GM in SODIUM CHLORIDE 0.9% 50 ML IVPB SCH (07:42)
[2022-03-31] MEDS: LACTULOSE 20 GM/30 ML CUP PEG/G-TUBE SCH ×3 (08:32→20:01)
[2022-03-31] MEDS: ASPIRIN 81 MG PEG/G-TUBE SCH (08:32)
[2022-03-31] MEDS: LACOSAMIDE 150 MG TABLET PEG/G-TUBE SCH ×2 (08:33→20:00)
--- NOTE | 2022-03-31 09:24 | P.PN ---
Subjective Progress Note Date: 03/28/22 Principal diagnosis: Catheter associated urinary tract infection Patient is a 61-year-old male with past medical history significant for MS in this patient did have a history of recurrent UTIs and pneumonia has been presented to the hospital with mental status changes and coarse breath sounds has been diagnosed with catheter associated UTI. Patient currently did have tachycardia and flushing after he received Zerbexa which was discontinued On today's evaluation that is 03/28/2022, patient remains to be afebrile, the patient is breathing comfortably on nasal cannula oxygen, patient did have NG for suction the patient does not seem to be in any distressed no vomiting or diarrhea reported by the nursing staff Objective - Vital Signs Vital signs: Vital Signs Temp 97.0 F L 03/28/22 11:29 Pulse 67 03/28/22 11:29 Resp 17 03/28/22 11:29 BP 132/73 03/28/22 11:29 Pulse Ox 99 03/28/22 11:29 FiO2 Intake & Output 03/27/22 03/28/22 03/28/22 18:59 06:59 18:59 Intake Total 920 Output Total 350 950 350 Balance -350 -30 -350 Weight 76 kg 70 kg Intake: Intake, IV Titration 900 Amount Sodium Chloride 0.9% 1, 900 000 ml @ 75 mls/hr IV . [id number] [facility] Rx#:[id number] Oral 0 Other 20 Output: Gastric Drainage 650 Urine 350 300 350 Other: Voiding Method Indwelling Catheter Indwelling Catheter Indwelling Catheter # Bowel Movements 1 - Exam GENERAL DESCRIPTION: Middle-age male lying in bed in no distress RESPIRATORY SYSTEM: Unlabored breathing , decreased breath sounds at bases HEART: S1 S2 regular rate and rhythm , ABDOMEN: Soft , no tenderness EXTREMITIES: No edema feet - Labs CBC & Chem 7: 03/30/22 07:10 03/30/22 07:10 Labs: Abnormal Lab Results - Last 24 Hours (Table) 03/28/22 03/28/22 Range/Units 07:24 07:24 Hgb 10.7 L (13.0-17.5) gm/dL Hct 34.7 L (39.0-53.0) % MCV 74.2 L (80.0-100.0) fL MCH 22.8 L (25.0-35.0) pg MCHC 30.8 L (31.0-37.0) g/dL RDW 17.3 H (11.5-15.5) % Eosinophils # 0.8 H (0-0.7) k/uL Potassium 5.2 H (3.5-5.1) mmol/L Chloride 111 H (98-107) mmol/L Carbon Dioxide 20 L (22-30) mmol/L Creatinine 0.65 L (0.66-1.25) mg/dL Microbiology - Last 24 Hours (Table) 03/24/22 05:00 Blood Culture - Preliminary Blood No Growth after 96 hours 03/26/22 17:20 Urine Culture - Final Urine,Voided Assessment and Plan (1) UTI (urinary tract infection) Current Visit: Yes Status: Acute Code(s): N39.0 - URINARY TRACT INFECTION, SITE NOT SPECIFIED SNOMED Code(s): 24818988 Plan: 1patient presented to hospital with noisy breathing some shortness of breath and no hypoxemia and cloudy urine did have a positive UA and a low-grade fever likely representing catheter associated urinary tract infection. 2patient urine has been finalized with ESBL E. coli, patient did have qu estionable meropenem ALLERGY , as the patient meropenem ALLERGY was documented in 2017 and the patient has received multiple courses of Invanz off towards as per discussion with the pharmacist, patient seems to be tolerating Invanz 1 g daily and will be continued Time with Patient: Less than 30
--- NOTE | 2022-03-31 09:25 | P.PN ---
Subjective Progress Note Date: 03/29/22 Principal diagnosis: Catheter associated urinary tract infection Patient is a 61-year-old male with past medical history significant for MS in this patient did have a history of recurrent UTIs and pneumonia has been presented to the hospital with mental status changes and coarse breath sounds has been diagnosed with catheter associated UTI. Patient currently did have tachycardia and flushing after he received Zerbexa which was discontinued On today's evaluation that is 03/29/2022, patient continues to be afebrile, the patient is breathing comfortably on nasal cannula oxygen, patient is not a good historian does not seem to be in distress no vomiting or diarrhea reported by the nursing staff Objective - Vital Signs Vital signs: Vital Signs Temp 99.0 F 03/29/22 11:20 Pulse 70 03/29/22 11:20 Resp 17 03/29/22 11:20 BP 126/81 03/29/22 11:20 Pulse Ox 99 03/29/22 11:20 FiO2 Intake & Output 03/28/22 03/29/22 03/29/22 18:59 06:59 18:59 Intake Total 950 Output Total 1050 350 300 Balance -100 -350 -300 Weight 70 kg 77 kg Intake: Intake, IV Titration 950 Amount Ertapenem 1 gm In Sodium 50 Chloride 0.9% 50 ml @ 100 mls/hr IVPB DAILY@1200 [facility] Rx#:[id number] Sodium Chloride 0.9% 1, 900 000 ml @ 75 mls/hr IV . [id number] [facility] Rx#:[id number] Output: Gastric Drainage 400 Urine 650 350 300 Other: Voiding Method Indwelling Catheter Indwelling Catheter Indwelling Catheter - Exam GENERAL DESCRIPTION: Middle-age male lying in bed in no distress RESPIRATORY SYSTEM: Unlabored breathing , decreased breath sounds at bases HEART: S1 S2 regular rate and rhythm , ABDOMEN: Soft , no tenderness EXTREMITIES: No edema feet - Labs CBC & Chem 7: 03/30/22 07:10 03/30/22 07:10 Labs: Microbiology - Last 24 Hours (Table) 03/24/22 05:00 Blood Culture - Preliminary Blood No Growth after 120 hours Assessment and Plan (1) UTI (urinary tract infection) Current Visit: Yes Status: Acute Code(s): N39.0 - URINARY TRACT INFECTION, SITE NOT SPECIFIED SNOMED Code(s): 36383449 Plan: 1patient presented to hospital with noisy breathing some shortness of breath and no hypoxemia and cloudy urine did have a positive UA and a low-grade fever likely representing catheter associated urinary tract infection. 2patient urine has been finalized with ESBL E. coli, patient did have questionable meropenem ALLERGY , as the patient meropenem ALLERGY was documented in 2017 and the patient has received multiple courses of Invanz afterwards, patient seems to be tolerating Invanz 1 g daily and will be continued and monitored clinical course closely Time with Patient: Less than 30
--- NOTE | 2022-03-31 09:26 | P.PN ---
Subjective Progress Note Date: 03/30/22 Principal diagnosis: Catheter associated urinary tract infection Patient is a 61-year-old male with past medical history significant for MS in this patient did have a history of recurrent UTIs and pneumonia has been presented to the hospital with mental status changes and coarse breath sounds has been diagnosed with catheter associated UTI. Patient currently did have tachycardia and flushing after he received Zerbexa which was discontinued On today's evaluation that is 03/30/2022, patient remains to be afebrile, the patient is breathing comfortably on nasal cannula oxygen, patient still has NG for suction and is not in any distress no vomiting or diarrhea reported by the nursing staff Objective - Vital Signs Vital signs: Vital Signs Temp 98.9 F 03/30/22 11:27 Pulse 85 03/30/22 11:27 Resp 18 03/30/22 11:27 BP 120/65 03/30/22 11:27 Pulse Ox 100 03/30/22 11:27 FiO2 Intake & Output 03/29/22 03/30/22 03/30/22 18:59 06:59 18:59 Output Total 900 1850 Balance -900 -1850 Weight 79.5 kg Output: Gastric Drainage 1550 Urine 900 300 Other: Voiding Method Indwelling Catheter Indwelling Catheter - Exam GENERAL DESCRIPTION: Middle-age male lying in bed in no distress RESPIRATORY SYSTEM: Unlabored breathing , decreased breath sounds at bases HEART: S1 S2 regular rate and rhythm , ABDOMEN: Soft , no tenderness EXTREMITIES: No edema feet - Labs CBC & Chem 7: 03/30/22 07:10 03/30/22 07:10 Labs: Abnormal Lab Results - Last 24 Hours (Table) 03/30/22 Range/Units 07:10 Hgb 10.9 L (13.0-17.0) g/dL Hct 38.5 L (39.6-50.0) % MCV 74.6 L (80.0-97.0) fL MCH 21.1 L (27.0-32.0) pg MCHC 28.3 L (32.0-37.0) g/dL RDW 17.4 H (11.5-14.5) % Lymphocytes # 0.62 L (0.90-5.00) X 10*3/uL Microbiology - Last 24 Hours (Table) 03/24/22 05:00 Blood Culture - Final Blood No Growth after 144 hours Assessment and Plan (1) UTI (urinary tract infection) Current Visit: Yes Status: Acute Code(s): N39.0 - URINARY TRACT INFECTION, SITE NOT SPECIFIED SNOMED Code(s): 73351691 Plan: 1patient presented to hospital with noisy breathing some shortness of breath and no hypoxemia and cloudy urine did have a positive UA and a low-grade fever likely representing catheter associated urinary tract infection. 2patient urine has been finalized with ESBL E. coli, patient did have questionable meropenem ALLERGY , as the patient meropenem ALLERGY was documented in 2017 and the patient has received multiple courses of Invanz afterwards, patient is tolerating Invanz 1 g daily which will be continued to finish his course of therapy Time with Patient: Less than 30
--- NOTE | 2022-03-31 10:50 | P.PN ---
Progress Note - Text Progress Note Date: 03/31/22 Per the nursing staff patient had several bowel movements yesterday. He is currently receiving lactulose. His abdominal distention is improved. On exam vital signs are stable. Abdomen soft. Patient is nasogastric tube removed. We will start with clear liquids down the PEG tube.
[2022-03-31] MEDS: SODIUM CHLORIDE 0.9% 1,000 ML IV SCH (18:07)
--- NOTE | 2022-03-31 19:23 | P.PN ---
Subjective This is a pleasant 61 years old male with past medical history of Deep Vein Thrombosis not on anticoagulation, GERD/Reflux, Hypertension, Musculoskeletal Disorder,Seizure Disorder, S, Pt diagnosed with MS at the age of 39 yrs, pt has dysphagia/NPO with peg tube, contractures, last seizure 07/2020, trigeminal neuralgia, dysarthria/anarthria/neurogenic bladder with IDC-UTIs/sepsis, multiple pneumonias, incontinent of stool, pt has had decubitus ulcer coccyx- sister , DVT bilateral arms, hypoxia, oxygen at 2L/NC, pt is baseline non-verbal with peg tube and aggarwal catheter in place Patient [facility] for respiratory signs and symptoms timbo breathing. Patient was started on levofloxacin and sent to the emergency room. Per ER note patient had low-grade fever of 99-100 Vital showing no fever on admission. Is slightly tachypneic. The rest of vitals are stable and he is saturating 95% on room air. Hemoglobin 11.9, rest of CBC, INR, BMP and liver enzymes are unremarkable. Troponin slightly elevated at 0.37. Urinalysis is suspicious for infection. EKG showing normal sinus rhythm at [address]-T changes Chest x-ray: Subsegmental atelectasis and scarring of the lung. Normal heart. No change compared to old exam KUB: There is evidence of some constipation and large bowel ileus. No free air. Fecal material increased compared to old exam. Large bulky has increased In the emergency room he was started on Tylenol, normal saline was started on cefepime 03/25/2022 Patient looks calm, breathing quietly. No agitation, hemodynamically stable. Labs reviewed He remains on cefepime Follow-up urine culture 03/26/2022 patient still lying in bed looks comfortable, his breathing comfortably. No respiratory distress. No agitation, it looks at baseline with contractures Urine culture, gram-negative bacilli 2. Patient remains on cefepime per ID team. Follow up final results of urine culture 03/27/2022 Patient has some reaction yesterday and he was given some steroids and IV fluids. Also received Benadryl. He is currently on normal saline 75 mL/h and antibiotics were adjusted to advance as urine culture is growing Proteus and ESBL Klebsiella in his urine. Surgical team also on the case for constipation and possible ileus 2. Feeding is held 03/28/2022 Patient been clinically stable since yesterday. No more breathing difficulty or any hypertensive episodes. NG tube in place and tube feed is on hold. He is still on Invanz for ESBL Klebsiella causing ileus 03/29/2022 Patient remains clinically awake, no much difference than yesterday, nonverbal at baseline. Still has NG tube Tube feed is on hold Still have no bowel movement. CT of the abdomen and pelvis without contrast showing no obstruction and fecal impaction Patient is on lactulose and surgery team of the case. 03/30/2022 Patient today clinically stable No more episodes of breathing difficulty or hypertension. NG tube still in place, patient had fecal impaction and so started enema is ordered by surgery team Abdominal benign Tube feedings: Hold Patient remains on Invanz for ESBL Klebsiella 03/31/2022 Patient is having bowel movement and NG tube was discontinued while liquid diet started per surgery team. We lowered his normal saline to 50 mL per hour Patient remains on Invanz We will keep monitoring Objective - Vital Signs Vital signs: Vital Signs Temp 98.7 F 03/31/22 07:15 Pulse 86 03/31/22 07:15 Resp 16 03/31/22 07:15 BP 117/73 03/31/22 07:15 Pulse Ox 100 03/31/22 07:15 FiO2 Intake & Output 03/30/22 03/31/22 03/31/22 18:59 06:59 18:59 Intake Total 950 0 Output Total 1000 500 200 Balance -50 -500 -200 Weight 80 kg Intake: Intake, IV Titration 950 Amount Ertapenem 1 gm In Sodium 50 Chloride 0.9% 50 ml @ 100 mls/hr IVPB DAILY@1200 [facility] Rx#:[id number] Sodium Chloride 0.9% 1, 900 000 ml @ 75 mls/hr IV . [id number] [facility] Rx#:[id number] Tube Feeding 0 Output: Gastric Drainage 500 500 200 Urine 500 Other: Voiding Method Indwelling Catheter Indwelling Catheter Indwelling Catheter # Bowel Movements 1 - Exam -GENERAL: The patient is nonverbal at baseline, not in any acute distress. Well developed, well nourished. CONTRACTURES ( chronic) HEENT: Pupils are round and equally reacting to light. EOMI. No scleral icterus. No conjunctival pallor. Normocephalic, atraumatic. No pharyngeal erythema. No thyromegaly. CARDIOVASCULAR: S1 and S2 present. No murmurs, rubs, or gallops. PULMONARY: Chest is clear to auscultation, no wheezing or crackles. -ABDOMEN: Soft, nontender, nondistended, normoactive bowel sounds. No palpable organomegaly. PEG tube in place. Indwelling Aggarwal catheter in place MUSCULOSKELETAL: No joint swelling or deformity. EXTREMITIES: No cyanosis, clubbing, or pedal edema. NEUROLOGICAL: Gross neurological examination did not reveal any focal deficits. SKIN: No rashes. No petechiae - Labs CBC & Chem 7: 03/30/22 07:10 03/30/22 07:10 Assessment and Plan Assessment: Acute urinary tract infection, secondary to Proteus and ESBL Klebsiella Constipation/ileus Mild elevation of the troponin, most likely it's troponin leak constipation and fecal impaction Hypertension History of seizure History of multiple sclerosis History of dysphagia status post PEG tube History of contracture History of trigeminal neuralgia History of dysarthria history of neurogenic bladder status post indwelling Aggarwal catheter History of multiple pneumonias and UTIs. Pressure ulcers Chronic approximate respiratory failure included oxygen via nasal cannula Plan: This is a pleasant 61 years old male who presents with UTI continue with antibiotic therapy ID team , currently on [facility] infectious disease consult Resume liquid diet to the PEG tube feeding, continue with IV fluid and lactulose with surgery team following the case closely Labs and medication were reviewed.. Continue same treatment. Continue with symptomatic treatment. Resume home medication. Monitor lytes and vitals. DVT and GI prophylaxis. Further recommendations depends on the clinical course of the patient DVT prophylaxis: Subcutaneous heparin GI Prophylaxis: Pepcid Prognosis is guarded
[2022-03-31] MEDS: FAMOTIDINE 8 MG/ML ORAL.SUSP PEG/G-TUBE SCH (20:00)
[2022-04-01] MEDS: METOPROLOL TARTRATE 25 MG TAB PEG/G-TUBE SCH ×2 (00:55→13:02)
[2022-04-01] MEDS: HEPARIN SODIUM,PORCINE/PF 5,000 UNIT/0.5 ML SYRINGE SQ SCH ×3 (00:55→15:25)
[2022-04-01] MEDS: BACLOFEN 10 MG TAB PEG/G-TUBE SCH ×3 (00:55→15:24)
[2022-04-01] MEDS: carBAMazepine 200 MG TAB PEG/G-TUBE SCH ×2 (00:55→13:02)
[2022-04-01] MEDS: METOPROLOL TARTRATE 50 MG TAB PEG/G-TUBE SCH ×2 (00:55→13:02)
[2022-04-01] MEDS: OXYBUTYNIN CHLORIDE 5 MG TAB PEG/G-TUBE SCH ×3 (00:55→15:24)
--- NOTE | 2022-04-01 00:55 | P.PN ---
Subjective Progress Note Date: 03/31/22 Principal diagnosis: Catheter associated urinary tract infection Patient is a 61-year-old male with past medical history significant for MS in this patient did have a history of recurrent UTIs and pneumonia has been presented to the hospital with mental status changes and coarse breath sounds has been diagnosed with catheter associated UTI. Patient currently did have tachycardia and flushing after he received Zerbexa which was discontinued On today's evaluation that is 03/31/2022, patient continues to be afebrile, the patient is breathing comfortably on nasal cannula oxygen, patient NG has been discontinued, patient not in any distress no vomiting or diarrhea reported by the nursing staff Objective - Vital Signs Vital signs: Vital Signs Temp 98.2 F 03/31/22 11:17 Pulse 74 03/31/22 11:17 Resp 15 03/31/22 11:17 BP 124/79 03/31/22 11:17 Pulse Ox 97 03/31/22 11:17 FiO2 Intake & Output 03/30/22 03/31/22 03/31/22 18:59 06:59 18:59 Intake Total 950 0 Output Total 1000 500 200 Balance -50 -500 -200 Weight 80 kg Intake: Intake, IV Titration 950 Amount Ertapenem 1 gm In Sodium 50 Chloride 0.9% 50 ml @ 100 mls/hr IVPB DAILY@1200 COUNT INCLUDES THE [facility] Rx#:[id number] Sodium Chloride 0.9% 1, 900 000 ml @ 75 mls/hr IV . [id number] COUNT INCLUDES THE [facility] Rx#:[id number] Tube Feeding 0 Output: Gastric Drainage 500 500 200 Urine 500 Other: Voiding Method Indwelling Catheter Indwelling Catheter Indwelling Catheter # Bowel Movements 1 - Exam GENERAL DESCRIPTION: Middle-age male lying in bed in no distress RESPIRATORY SYSTEM: Unlabored breathing , decreased breath sounds at bases HEART: S1 S2 regular rate and rhythm , ABDOMEN: Soft , no tenderness EXTREMITIES: No edema feet - Labs CBC & Chem 7: 03/30/22 07:10 03/30/22 07:10 Assessment and Plan (1) UTI (urinary tract infection) Current Visit: Yes Status: Acute Code(s): N39.0 - URINARY TRACT INFECTION, SITE NOT SPECIFIED SNOMED Code(s): 61352789 Plan: 1patient presented to hospital with noisy breathing some shortness of breath and no hypoxemia and cloudy urine did have a positive UA and a low-grade fever likely representing catheter associated urinary tract infection. 2patient urine has been finalized with ESBL E. coli, patient did have questionable meropenem ALLERGY , as the patient meropenem ALLERGY was documented in 2017 and the patient has received multiple courses of Invanz afterwards, patient slowly clinically improving and will continue Invanz 1 g daily to fi alejandrina his course of therapy Time with Patient: Less than 30
[2022-04-01] MEDS: LACOSAMIDE 150 MG TABLET PEG/G-TUBE SCH ×2 (07:46→19:54)
[2022-04-01] MEDS: ASPIRIN 81 MG PEG/G-TUBE SCH (07:46)
[2022-04-01] MEDS: LACTULOSE 20 GM/30 ML CUP PEG/G-TUBE SCH ×3 (07:46→19:55)
[2022-04-01 09:01] LABS: Basophils # (A) 0.03 X 10*3/uL (0.00-0.10); Basophils % (A) 0.6 %; Eosinophils # (A) 0.32 X 10*3/uL (0.04-0.35); Eosinophils % (A) 6.2 %; HCT 33.9 % (39.6-50.0); HGB 9.8 g/dL (13.0-17.0); Immature Grans, Automated 0.6 %; Lymphocytes # (A) 1.16 X 10*3/uL (0.90-5.00); Lymphocytes % (A) 22.4 %; MCH 21.4 pg (27.0-32.0); MCHC 28.9 g/dL (32.0-37.0); Mean Platelet Volume 10.9 fL (9.5-12.2); Monocytes # (A) 0.54 X 10*3/uL (0.20-1.00); Monocytes % (A) 10.4 %; NRBC Per 100 WBC 0 /100 WBCS (0.0-0.0); Neutrophils # (A) 3.09 X 10*3/uL (1.80-7.70); Neutrophils % (A) 59.8 %; Platelet Count 356 X 10*3/uL (140-440); RBC 4.58 X 10*6/uL (4.40-5.60); RDW 17.5 % (11.5-14.5); WBC 5.17 X 10*3/uL (4.50-10.00)
[2022-04-01 09:13] LABS: African American GFR (CKD) 117.2 (60.0-200.0); Anion Gap 13.1 mmol/L (10.00-18.00); BUN/Creat Ratio 13.29 Ratio (12.00-20.00); Blood Urea Nitrogen 9.3 mg/dL (9.0-27.0); Calcium 8.3 mg/dL (8.7-10.3); Carbon Dioxide 23.9 mmol/L (20.0-27.5); Magnesium 1.9 mg/dL (1.5-2.4); Non-African American GFR(CKD) 101.1 (60.0-200.0); Potassium 3.7 mmol/L (3.5-5.5)
--- NOTE | 2022-04-01 11:31 | P.PN ---
Progress Note - Text Progress Note Date: 04/01/22 Patient is tolerating clear liquids down his PEG tube. His fecal impaction appears to be resolved. On exam vital signs are stable. Abdomen soft. Patient will have his diet advanced as tolerated.
[2022-04-01] MEDS: ERTAPENEM 1 GM in SODIUM CHLORIDE 0.9% 50 ML IVPB SCH (13:02)
[2022-04-01] MEDS: SODIUM CHLORIDE 0.9% 1,000 ML IV SCH (13:14)
--- NOTE | 2022-04-01 18:32 | P.PN ---
Subjective This is a pleasant 61 years old male with past medical history of Deep Vein Thrombosis not on anticoagulation, GERD/Reflux, Hypertension, Musculoskeletal Disorder,Seizure Disorder, S, Pt diagnosed with MS at the age of 39 yrs, pt has dysphagia/NPO with peg tube, contractures, last seizure 07/2020, trigeminal neuralgia, dysarthria/anarthria/neurogenic bladder with IDC-UTIs/sepsis, multiple pneumonias, incontinent of stool, pt has had decubitus ulcer coccyx- sister , DVT bilateral arms, hypoxia, oxygen at 2L/NC, pt is baseline non-verbal with peg tube and aggarwal catheter in place Patient [facility] signs and symptoms timbo breathing. Patient was started on levofloxacin and sent to the emergency room. Per ER note patient had low-grade fever of 99-100 Vital showing no fever on admission. Is slightly tachypneic. The rest of vitals are stable and he is saturating 95% on room air. Hemoglobin 11.9, rest of CBC, INR, BMP and liver enzymes are unremarkable. Troponin slightly elevated at 0.37. Urinalysis is suspicious for infection. EKG showing normal sinus rhythm at [address]-T changes Chest x-ray: Subsegmental atelectasis and scarring of the lung. Normal heart. No change compared to old exam KUB: There is evidence of some constipation and large bowel ileus. No free air. Fecal material increased compared to old exam. Large bulky has increased In the emergency room he was started on Tylenol, normal saline was started on cefepime 03/25/2022 Patient looks calm, breathing quietly. No agitation, hemodynamically stable. Labs reviewed He remains on cefepime Follow-up urine culture 03/26/2022 patient still lying in bed looks comfortable, his breathing comfortably. No respiratory distress. No agitation, it looks at baseline with contractures Urine culture, gram-negative bacilli 2. Patient remains on cefepime per ID team. Follow up final results of urine culture 03/27/2022 Patient has some reaction yesterday and he was given some steroids and IV fluids. Also received Benadryl. He is currently on normal saline 75 mL/h and antibiotics were adjusted to advance as urine culture is growing Proteus and ESBL Klebsiella in his urine. Surgical team also on the case for constipation and possible ileus 2. Feeding is held 03/28/2022 Patient been clinically stable since yesterday. No more breathing difficulty or any hypertensive episodes. NG tube in place and tube feed is on hold. He is still on Invanz for ESBL Klebsiella causing ileus 03/29/2022 Patient remains clinically awake, no much difference than yesterday, nonverbal at baseline. Still has NG tube Tube feed is on hold Still have no bowel movement. CT of the abdomen and pelvis without contrast showing no obstruction and fecal impaction Patient is on lactulose and surgery team of the case. 03/30/2022 Patient today clinically stable No more episodes of breathing difficulty or hypertension. NG tube still in place, patient had fecal impaction and so started enema is ordered by surgery team Abdominal benign Tube feedings: Hold Patient remains on Invanz for ESBL Klebsiella 03/31/2022 Patient is having bowel movement and NG tube was discontinued while liquid diet started per surgery team. We lowered his normal saline to 50 mL per hour Patient remains on Invanz We will keep monitoring 04/01/2022 Patient is tolerating liquid diet today and his PEG tube feeding is advanced as tolerated per surgery team recommendation Clinically he looks the same and stable. No bowel movement after the enema he received yesterday. He is on lactulose at baseline. We will add Colace with holding parameters Objective - Vital Signs Vital signs: Vital Signs Temp 98.9 F 04/01/22 05:00 Pulse 80 04/01/22 08:40 Resp 18 04/01/22 08:40 BP 132/80 04/01/22 08:10 Pulse Ox 97 04/01/22 05:00 FiO2 Intake & Output 03/31/22 04/01/22 04/01/22 18:59 06:59 18:59 Intake Total 300 640 Output Total 425 350 Balance -125 290 Weight 80 kg 74 kg Intake: Intake, IV Titration 550 Amount Sodium Chloride 0.9% 1, 550 000 ml @ 50 mls/hr IV . Q20H [facility] Rx#:[id number] Oral 300 90 Output: Gastric Drainage 200 Urine 225 350 Other: Voiding Method Indwelling Catheter Indwelling Catheter Indwelling Catheter - Exam -GENERAL: The patient is nonverbal at baseline, not in any acute distress. Well developed, well nourished. CONTRACTURES ( chronic) HEENT: Pupils are round and equally reacting to light. EOMI. No scleral icterus. No conjunctival pallor. Normocephalic, atraumatic. No pharyngeal erythema. No thyromegaly. CARDIOVASCULAR: S1 and S2 present. No murmurs, rubs, or gallops. PULMONARY: Chest is clear to auscultation, no wheezing or crackles. -ABDOMEN: Soft, nontender, nondistended, normoactive bowel sounds. No palpable organomegaly. PEG tube in place. Indwelling Aggarwal catheter in place MUSCULOSKELETAL: No joint swelling or deformity. EXTREMITIES: No cyanosis, clubbing, or pedal edema. NEUROLOGICAL: Gross neurological examination did not reveal any focal deficits. SKIN: No rashes. No petechiae - Labs CBC & Chem 7: 04/01/22 05:48 04/01/22 05:48 Labs: Abnormal Lab Results - Last 24 Hours (Table) 04/01/22 04/01/22 Range/Units 05:48 05:48 Hgb 9.8 L (13.0-17.0) g/dL Hct 33.9 L (39.6-50.0) % MCV 74.0 L (80.0-97.0) fL MCH 21.4 L (27.0-32.0) pg MCHC 28.9 L (32.0-37.0) g/dL RDW 17.5 H (11.5-14.5) % Sodium 146 H (135-145) mmol/L Calcium 8.3 L (8.7-10.3) mg/dL Assessment and Plan Assessment: Acute urinary tract infection, secondary to Proteus and ESBL Klebsiella Constipation/ileus Mild elevation of the troponin, most likely it's troponin leak constipation and fecal impaction Hypertension History of seizure History of multiple sclerosis History of dysphagia status post PEG tube History of contracture History of trigeminal neuralgia History of dysarthria history of neurogenic bladder status post indwelling Aggarwal catheter History of multiple pneumonias and UTIs. Pressure ulcers Chronic approximate respiratory failure included oxygen via nasal cannula Plan: This is a pleasant 61 years old male who presents with UTI continue with antibiotic therapy ID team , currently on [facility] infectious disease consult Advance diet as tolerated through the PEG tube feeding, continue with IV fluid and lactulose with surgery team following the case closely Continue with lactulose. At [facility] with holding permit Labs and medication were reviewed.. Continue same treatment. Continue with symptomatic treatment. Resume home medication. Monitor lytes and vitals. DVT and GI prophylaxis. Further recommendations depends on the clinical course of the patient DVT prophylaxis: Subcutaneous heparin GI Prophylaxis: Pepcid Prognosis is guarded
[2022-04-01] MEDS: FAMOTIDINE 8 MG/ML ORAL.SUSP PEG/G-TUBE SCH (19:53)
[2022-04-01] MEDS: DOCUSATE 100 MG CAP MISCELLANE SCH (20:06)
[2022-04-01] MEDS ORDERED: DOCUSATE 100 MG CAP PO SCH (21:00)
[2022-04-02] MEDS: carBAMazepine 200 MG TAB PEG/G-TUBE SCH ×2 (00:46→12:49)
[2022-04-02] MEDS: METOPROLOL TARTRATE 50 MG TAB PEG/G-TUBE SCH ×2 (00:46→12:49)
[2022-04-02] MEDS: BACLOFEN 10 MG TAB PEG/G-TUBE SCH ×3 (00:46→16:36)
[2022-04-02] MEDS: HEPARIN SODIUM,PORCINE/PF 5,000 UNIT/0.5 ML SYRINGE SQ SCH ×3 (00:46→16:36)
[2022-04-02] MEDS: METOPROLOL TARTRATE 25 MG TAB PEG/G-TUBE SCH ×2 (00:47→12:49)
[2022-04-02] MEDS: OXYBUTYNIN CHLORIDE 5 MG TAB PEG/G-TUBE SCH ×3 (00:54→16:36)
[2022-04-02] MEDS: LACOSAMIDE 150 MG TABLET PEG/G-TUBE SCH ×2 (09:56→21:28)
[2022-04-02] MEDS: LACTULOSE 20 GM/30 ML CUP PEG/G-TUBE SCH ×3 (09:56→21:28)
[2022-04-02] MEDS: ASPIRIN 81 MG PEG/G-TUBE SCH (09:56)
[2022-04-02] MEDS: SODIUM CHLORIDE 0.9% 1,000 ML IV SCH (09:58)
[2022-04-02] MEDS: DOCUSATE 100 MG CAP MISCELLANE SCH ×2 (10:04→21:28)
--- NOTE | 2022-04-02 10:21 | P.PN ---
Progress Note - Text Progress Note Date: 04/02/22 Patient is resting comfortably in his bed. He's had no further signs of bowel obstruction. He had been tolerating clear liquids through his PEG tube. Abdomen soft nontender Patient will start on Jevity 20 mL per hour.
[2022-04-02] MEDS: ERTAPENEM 1 GM in SODIUM CHLORIDE 0.9% 50 ML IVPB SCH (12:53)
[2022-04-02] MEDS: FAMOTIDINE 8 MG/ML ORAL.SUSP PEG/G-TUBE SCH (21:28)
--- NOTE | 2022-04-02 22:45 | P.PN ---
Subjective This is a pleasant 61 years old male with past medical history of Deep Vein Thrombosis not on anticoagulation, GERD/Reflux, Hypertension, Musculoskeletal Disorder,Seizure Disorder, S, Pt diagnosed with MS at the age of 39 yrs, pt has dysphagia/NPO with peg tube, contractures, last seizure 07/2020, trigeminal neuralgia, dysarthria/anarthria/neurogenic bladder with IDC-UTIs/sepsis, multiple pneumonias, incontinent of stool, pt has had decubitus ulcer coccyx- sister , DVT bilateral arms, hypoxia, oxygen at 2L/NC, pt is baseline non-verbal with peg tube and aggarwal catheter in place [facility] and symptoms timbo breathing. Patient was started on levofloxacin and sent to the emergency room. Per ER note patient had low-grade fever of 99-100 Vital showing no fever on admission. Is slightly tachypneic. The rest of vitals are stable and he is saturating 95% on room air. Hemoglobin 11.9, rest of CBC, INR, BMP and liver enzymes are unremarkable. Troponin slightly elevated at 0.37. Urinalysis is suspicious for infection. EKG showing normal sinus rhythm at [address]-T changes Chest x-ray: Subsegmental atelectasis and scarring of the lung. Normal heart. No change compared to old exam KUB: There is evidence of some constipation and large bowel ileus. No free air. Fecal material increased compared to old exam. Large bulky has increased In the emergency room he was started on Tylenol, normal saline was started on cefepime 03/25/2022 Patient looks calm, breathing quietly. No agitation, hemodynamically stable. Labs reviewed He remains on cefepime Follow-up urine culture 03/26/2022 patient still lying in bed looks comfortable, his breathing comfortably. No respiratory distress. No agitation, it looks at baseline with contractures Urine culture, gram-negative bacilli 2. Patient remains on cefepime per ID team. Follow up final results of urine culture 03/27/2022 Patient has some reaction yesterday and he was given some steroids and IV fluids. Also received Benadryl. He is currently on normal saline 75 mL/h and antibiotics were adjusted to advance as urine culture is growing Proteus and ESBL Klebsiella in his urine. Surgical team also on the case for constipation and possible ileus 2. Feeding is held 03/28/2022 Patient been clinically stable since yesterday. No more breathing difficulty or any hypertensive episodes. NG tube in place and tube feed is on hold. He is still on Invanz for ESBL Klebsiella causing ileus 03/29/2022 Patient remains clinically awake, no much difference than yesterday, nonverbal at baseline. Still has NG tube Tube feed is on hold Still have no bowel movement. CT of the abdomen and pelvis without contrast showing no obstruction and fecal impaction Patient is on lactulose and surgery team of the case. 03/30/2022 Patient today clinically stable No more episodes of breathing difficulty or hypertension. NG tube still in place, patient had fecal impaction and so started enema is ordered by surgery team Abdominal benign Tube feedings: Hold Patient remains on Invanz for ESBL Klebsiella 03/31/2022 Patient is having bowel movement and NG tube was discontinued while liquid diet started per surgery team. We lowered his normal saline to 50 mL per hour Patient remains on Invanz We will keep monitoring 04/01/2022 Patient is tolerating liquid diet today and his PEG tube feeding is advanced as tolerated per surgery team recommendation Clinically he looks the same and stable. No bowel movement after the enema he received yesterday. He is on lactulose at baseline. We will add Colace with holding parameters 04/02/2022 Patient awake, and baseline. His getting little bit puffy and swollen. Tube feeding was started today at 20 mL/h None reported bowel movement but he started on Colace. We will discontinue IV fluids tonight Check labs in the morning Objective - Vital Signs Vital signs: Vital Signs Temp 97.7 F 04/02/22 05:00 Pulse 69 04/02/22 05:00 Resp 20 04/02/22 05:00 BP 149/84 04/02/22 05:00 Pulse Ox 99 04/02/22 05:00 FiO2 Intake & Output 04/01/22 04/02/22 04/02/22 18:59 06:59 18:59 Intake Total 0 Output Total 400 500 Balance -400 -500 Weight 71.5 kg Intake: Oral 0 Tube Feeding 0 Output: Urine 400 500 Other: Voiding Method Indwelling Catheter Indwelling Catheter Indwelling Catheter # Bowel Movements 0 - Exam -GENERAL: The patient is nonverbal at baseline, not in any acute distress. Well developed, well nourished. CONTRACTURES ( chronic) HEENT: Pupils are round and equally reacting to light. EOMI. No scleral icterus. No conjunctival pallor. Normocephalic, atraumatic. No pharyngeal erythema. No thyromegaly. CARDIOVASCULAR: S1 and S2 present. No murmurs, rubs, or gallops. PULMONARY: Chest is clear to auscultation, no wheezing or crackles. -ABDOMEN: Soft, nontender, nondistended, normoactive bowel sounds. No palpable organomegaly. PEG tube in place. Indwelling Aggarwal catheter in place MUSCULOSKELETAL: No joint swelling or deformity. EXTREMITIES: No cyanosis, clubbing, or pedal edema. NEUROLOGICAL: Gross neurological examination did not reveal any focal deficits. SKIN: No rashes. No petechiae - Labs CBC & Chem 7: 04/01/22 05:48 04/01/22 05:48 Assessment and Plan Assessment: Acute urinary tract infection, secondary to Proteus and ESBL Klebsiella Constipation/ileus Mild elevation of the troponin, most likely it's troponin leak constipation and fecal impaction Hypertension History of seizure History of multiple sclerosis History of dysphagia status post PEG tube History of contracture History of trigeminal neuralgia History of dysarthria history of neurogenic bladder status post indwelling Aggarwal catheter History of multiple pneumonias and UTIs. Pressure ulcers Chronic approximate respiratory failure included oxygen via nasal cannula Plan: This is a pleasant 61 years old male who presents with UTI continue with antibiotic therapy ID team , currently on [facility] infectious disease consult Advance diet as tolerated through the PEG tube feeding, Discontinue IV Continue with lactulose. At [facility] with holding permit Labs and medication were reviewed.. Continue same treatment. Continue with symptomatic treatment. Resume home medication. Monitor lytes and vitals. DVT and GI prophylaxis. Further recommendations depends on the clinical course of t he patient DVT prophylaxis: Subcutaneous heparin GI Prophylaxis: Pepcid Prognosis is guarded
[2022-04-03] MEDS: HEPARIN SODIUM,PORCINE/PF 5,000 UNIT/0.5 ML SYRINGE SQ SCH ×3 (00:13→16:59)
[2022-04-03] MEDS: METOPROLOL TARTRATE 50 MG TAB PEG/G-TUBE SCH ×2 (00:14→12:17)
[2022-04-03] MEDS: METOPROLOL TARTRATE 25 MG TAB PEG/G-TUBE SCH ×2 (00:14→12:15)
[2022-04-03] MEDS: OXYBUTYNIN CHLORIDE 5 MG TAB PEG/G-TUBE SCH ×3 (00:14→17:00)
[2022-04-03] MEDS: carBAMazepine 200 MG TAB PEG/G-TUBE SCH ×2 (00:14→12:18)
[2022-04-03] MEDS: BACLOFEN 10 MG TAB PEG/G-TUBE SCH ×3 (00:17→17:00)
--- NOTE | 2022-04-03 01:45 | P.PN ---
Subjective Progress Note Date: 04/01/22 Principal diagnosis: Catheter associated urinary tract infection Patient is a 61-year-old male with past medical history significant for MS in this patient did have a history of recurrent UTIs and pneumonia has been presented to the hospital with mental status changes and coarse breath sounds has been diagnosed with catheter associated UTI. Patient currently did have tachycardia and flushing after he received Zerbexa which was discontinued On today's evaluation that is 04/01/2022, patient remains to be afebrile, the patient is breathing comfortably on nasal cannula oxygen, patient is not in any distress no vomiting or diarrhea reported by the nursing staff Objective - Vital Signs Vital signs: Vital Signs Temp 98.9 F 04/01/22 12:36 Pulse 81 04/01/22 12:36 Resp 18 04/01/22 12:36 BP 167/98 04/01/22 12:36 Pulse Ox 100 04/01/22 12:36 FiO2 Intake & Output 03/31/22 04/01/22 04/01/22 18:59 06:59 18:59 Intake Total 300 640 Output Total 425 350 400 Balance -125 290 -400 Weight 80 kg 74 kg Intake: Intake, IV Titration 550 Amount Sodium Chloride 0.9% 1, 550 000 ml @ 50 mls/hr IV . [facility] Rx#:[id number] Oral 300 90 Output: Gastric Drainage 200 Urine 225 350 400 Other: Voiding Method Indwelling Catheter Indwelling Catheter Indwelling Catheter - Exam GENERAL DESCRIPTION: Middle-age male lying in bed in no distress RESPIRATORY SYSTEM: Unlabored breathing , decreased breath sounds at bases HEART: S1 S2 regular rate and rhythm , ABDOMEN: Soft , no tenderness EXTREMITIES: No edema feet - Labs CBC & Chem 7: 04/01/22 05:48 04/01/22 05:48 Labs: Abnormal Lab Results - Last 24 Hours (Table) 04/01/22 04/01/22 Range/Units 05:48 05:48 Hgb 9.8 L (13.0-17.0) g/dL Hct 33.9 L (39.6-50.0) % MCV 74.0 L (80.0-97.0) fL MCH 21.4 L (27.0-32.0) pg MCHC 28.9 L (32.0-37.0) g/dL RDW 17.5 H (11.5-14.5) % Sodium 146 H (135-145) mmol/L Calcium 8.3 L (8.7-10.3) mg/dL Assessment and Plan (1) UTI (urinary tract infection) Current Visit: Yes Status: Acute Code(s): N39.0 - URINARY TRACT INFECTION, SITE NOT SPECIFIED SNOMED Code(s): 00533480 Plan: 1patient presented to hospital with noisy breathing some shortness of breath and no hypoxemia and cloudy urine did have a positive UA and a low-grade fever likely representing catheter associated urinary tract infection. 2patient urine has been finalized with ESBL E. coli, patient did have questionable meropenem ALLERGY , as the patient meropenem ALLERGY was documented in 2017 and the patient has received multiple courses of Invanz afterwards, patient has shown clinical improvement and will continue Invanz 1 g daily and monitor clinical course closely Time with Patient: Less than 30
--- NOTE | 2022-04-03 01:46 | P.PN ---
Subjective Progress Note Date: 04/02/22 Principal diagnosis: Catheter associated urinary tract infection Patient is a 61-year-old male with past medical history significant for MS in this patient did have a history of recurrent UTIs and pneumonia has been presented to the hospital with mental status changes and coarse breath sounds has been diagnosed with catheter associated UTI. Patient currently did have tachycardia and flushing after he received Zerbexa which was discontinued On today's evaluation that is 04/02/2022, patient continues to be afebrile, the patient is breathing comfortably on nasal cannula oxygen, patient is not in any distress no vomiting or diarrhea reported by the nursing staff, patient unable to provide any history Objective - Vital Signs Vital signs: Vital Signs Temp 98.6 F 04/02/22 19:52 Pulse 69 04/02/22 19:52 Resp 18 04/02/22 19:52 BP 148/84 04/02/22 19:52 Pulse Ox 99 04/02/22 19:52 FiO2 Intake & Output 04/02/22 04/02/22 04/03/22 06:59 18:59 06:59 Intake Total 0 220 Output Total 500 Balance -500 220 Weight 71.5 kg Intake: Oral 0 Tube Feeding 0 160 Other 60 Output: Urine 500 Other: Voiding Method Indwelling Catheter Indwelling Catheter # Bowel Movements 0 1 - Exam GENERAL DESCRIPTION: Middle-age male lying in bed in no distress RESPIRATORY SYSTEM: Unlabored breathing , decreased breath sounds at bases HEART: S1 S2 regular rate and rhythm , ABDOMEN: Soft , no tenderness EXTREMITIES: No edema feet - Labs CBC & Chem 7: 04/01/22 05:48 04/01/22 05:48 Assessment and Plan (1) UTI (urinary tract infection) Current Visit: Yes Status: Acute Code(s): N39.0 - URINARY TRACT INFECTION, SITE NOT SPECIFIED SNOMED Code(s): 47235969 Plan: 1patient presented to hospital with noisy breathing some shortness of breath and no hypoxemia and cloudy urine did have a positive UA and a low-grade fever likely representing catheter associated urinary tract infection. 2patient urine has been finalized with ESBL E. coli, patient did have questionable meropenem ALLERGY , as the patient meropenem ALLERGY was documented in 2017 and the patient has received multiple courses of Invanz afterwards, patient has shown clinical improvement and will continue Invanz 1 g daily to finish a total of 2 week course of therapy Time with Patient: Less than 30
[2022-04-03] MEDS: LACTULOSE 20 GM/30 ML CUP PEG/G-TUBE SCH ×3 (08:00→20:14)
[2022-04-03] MEDS: DOCUSATE 100 MG CAP MISCELLANE SCH ×2 (08:00→20:13)
[2022-04-03] MEDS: LACOSAMIDE 150 MG TABLET PEG/G-TUBE SCH ×2 (08:00→20:12)
[2022-04-03] MEDS: ASPIRIN 81 MG PEG/G-TUBE SCH (08:00)
[2022-04-03 09:26] LABS: Basophils # (A) 0.03 X 10*3/uL (0.00-0.10); Basophils % (A) 0.5 %; Eosinophils # (A) 0.53 X 10*3/uL (0.04-0.35); Eosinophils % (A) 9.4 %; HCT 36.2 % (39.6-50.0); HGB 10.2 g/dL (13.0-17.0); Immature Grans, Automated 0.4 %; Lymphocytes % (A) 10.7 %; MCHC 28.2 g/dL (32.0-37.0); MCV 74.6 fL (80.0-97.0); Mean Platelet Volume 10.9 fL (9.5-12.2); Monocytes # (A) 0.51 X 10*3/uL (0.20-1.00); Monocytes % (A) 9.1 %; NRBC Per 100 WBC 0 /100 WBCS (0.0-0.0); Neutrophils # (A) 3.93 X 10*3/uL (1.80-7.70); Neutrophils % (A) 69.9 %; Platelet Count 384 X 10*3/uL (140-440); RBC 4.85 X 10*6/uL (4.40-5.60); RDW 17.6 % (11.5-14.5); WBC 5.62 X 10*3/uL (4.50-10.00)
[2022-04-03 09:35] LABS: African American GFR (CKD) 125.8 (60.0-200.0); Anion Gap 12.4 mmol/L (10.00-18.00); BUN/Creat Ratio 13.8 Ratio (12.00-20.00); Blood Urea Nitrogen 8.1 mg/dL (9.0-27.0); Calcium 8.3 mg/dL (8.7-10.3); Carbon Dioxide 22.4 mmol/L (20.0-27.5); Magnesium 1.9 mg/dL (1.5-2.4); Non-African American GFR(CKD) 108.5 (60.0-200.0); Potassium 3.1 mmol/L (3.5-5.5)
--- NOTE | 2022-04-03 10:16 | P.PN ---
Progress Note - Text Progress Note Date: 04/03/22 Patient is tolerating his tube feeds. Abdomen soft. Tube feeds will He'll be advanced to goal.
[2022-04-03] MEDS ORDERED: Potassium Replacement Protocol 1 EACH MISC MISCELLANE PRN ×2 (10:54→18:26)
--- NOTE | 2022-04-03 12:08 | XR ---
EXAMINATION TYPE: XR KUB DATE OF EXAM: 04/03/2022 11:51 AM INDICATION: Patient age:Male; 61 years old; Reason for study: [id number]; COMPARISON: CT 03/29/2022 TECHNIQUE: One radiographic view of the abdomen was obtained. FINDINGS: Gaseous distention of loops of the colon which is nonspecific. Sigmoid colon is less disten ded on today's exam. Excreted contrast is seen within the bladder lumen. Multiple pelvic phleboliths are present. IMPRESSION: Persistent gaseous distention of the colon with decrease in gaseous distention of the sigmoid colon.
[2022-04-03] MEDS: POTASSIUM BICARBONATE/CIT AC 20 MEQ TABLET.EFF NG-TUBE SCH ×2 (12:16→12:57)
[2022-04-03] MEDS: ERTAPENEM 1 GM in SODIUM CHLORIDE 0.9% 50 ML IVPB SCH (12:18)
[2022-04-03] MEDS ORDERED: MAGNESIUM SULFATE-D5W PMX 1 GM in DEXTROSE/WATER 1 100ML.BAG IVPB ONE (18:03)
--- NOTE | 2022-04-03 18:06 | P.PN ---
Subjective This is a pleasant 61 years old male with past medical history of Deep Vein Thrombosis not on anticoagulation, GERD/Reflux, Hypertension, Musculoskeletal Disorder,Seizure Disorder, S, Pt diagnosed with MS at the age of 39 yrs, pt has dysphagia/NPO with peg tube, contractures, last seizure 07/2020, trigeminal neuralgia, dysarthria/anarthria/neurogenic bladder with IDC-UTIs/sepsis, multiple pneumonias, incontinent of stool, pt has had decubitus ulcer coccyx- sister , DVT bilateral arms, hypoxia, oxygen at 2L/NC, pt is baseline non-verbal with peg tube and aggarwal catheter in place [facility] signs and symptoms timbo breathing. Patient was started on levofloxacin and sent to the emergency room. Per ER note patient had low-grade fever of 99-100 Vital showing no fever on admission. Is slightly tachypneic. The rest of vitals are stable and he is saturating 95% on room air. Hemoglobin 11.9, rest of CBC, INR, BMP and liver enzymes are unremarkable. Troponin slightly elevated at 0.37. Urinalysis is suspicious for infection. EKG showing normal sinus rhythm at [address]-T changes Chest x-ray: Subsegmental atelectasis and scarring of the lung. Normal heart. No change compared to old exam KUB: There is evidence of some constipation and large bowel ileus. No free air. Fecal material increased compared to old exam. Large bulky has increased In the emergency room he was started on Tylenol, normal saline was started on cefepime 03/25/2022 Patient looks calm, breathing quietly. No agitation, hemodynamically stable. Labs reviewed He remains on cefepime Follow-up urine culture 03/26/2022 patient still lying in bed looks comfortable, his breathing comfortably. No respiratory distress. No agitation, it looks at baseline with contractures Urine culture, gram-negative bacilli 2. Patient remains on cefepime per ID team. Follow up final results of urine culture 03/27/2022 Patient has some reaction yesterday and he was given some steroids and IV fluids. Also received Benadryl. He is currently on normal saline 75 mL/h and antibiotics were adjusted to advance as urine culture is growing Proteus and ESBL Klebsiella in his urine. Surgical team also on the case for constipation and possible ileus 2. Feeding is held 03/28/2022 Patient been clinically stable since yesterday. No more breathing difficulty or any hypertensive episodes. NG tube in place and tube feed is on hold. He is still on Invanz for ESBL Klebsiella causing ileus 03/29/2022 Patient remains clinically awake, no much difference than yesterday, nonverbal at baseline. Still has NG tube Tube feed is on hold Still have no bowel movement. CT of the abdomen and pelvis without contrast showing no obstruction and fecal impaction Patient is on lactulose and surgery team of the case. 03/30/2022 Patient today clinically stable No more episodes of breathing difficulty or hypertension. NG tube still in place, patient had fecal impaction and so started enema is ordered by surgery team Abdominal benign Tube feedings: Hold Patient remains on Invanz for ESBL Klebsiella 03/31/2022 Patient is having bowel movement and NG tube was discontinued while liquid diet started per surgery team. We lowered his normal saline to 50 mL per hour Patient remains on Invanz We will keep monitoring 04/01/2022 Patient is tolerating liquid diet today and his PEG tube feeding is advanced as tolerated per surgery team recommendation Clinically he looks the same and stable. No bowel movement after the enema he received yesterday. He is on lactulose at baseline. We will add Colace with holding parameters 04/02/2022 Patient awake, and baseline. His getting little bit puffy and swollen. Tube feeding was started today at 20 mL/h None reported bowel movement but he started on Colace. We will discontinue IV fluids tonight Check labs in the morning 04/03/2022 Patient today has abdominal distention although he tolerates tube feeding and he has 2 small bowel movements. KUB showing persistent gaseous distention of the colon. Because of this are going to hold tube feeding overnight and restart tomorrow. Surgery team on the case, no surgical intervention for now Objective - Vital Signs Vital signs: Vital Signs Temp 98.1 F 04/03/22 11:16 Pulse 68 04/03/22 11:16 Resp 20 04/03/22 11:16 BP 131/86 04/03/22 11:16 Pulse Ox 98 04/03/22 11:16 FiO2 Intake & Output 04/02/22 04/03/22 04/03/22 18:59 06:59 18:59 Intake Total 220 0 Output Total 400 Balance 220 -400 Weight 83 kg Intake: Oral 0 Tube Feeding 160 Other 60 Output: Urine 400 Other: Voiding Method Indwelling Catheter Indwelling Catheter Indwelling Catheter # Bowel Movements 1 - Exam -GENERAL: The patient is nonverbal at baseline, not in any acute distress. Well developed, well nourished. CONTRACTURES ( chronic) HEENT: Pupils are round and equally reacting to light. EOMI. No scleral icterus. No conjunctival pallor. Normocephalic, atraumatic. No pharyngeal erythema. No thyromegaly. CARDIOVASCULAR: S1 and S2 present. No murmurs, rubs, or gallops. PULMONARY: Chest is clear to auscultation, no wheezing or crackles. -ABDOMEN: Soft, nontender, nondistended, normoactive bowel sounds. No palpable organomegaly. PEG tube in place. Indwelling Aggarwal catheter in place MUSCULOSKELETAL: No joint swelling or deformity. EXTREMITIES: No cyanosis, clubbing, or pedal edema. NEUROLOGICAL: Gross neurological examination did not reveal any focal deficits. SKIN: No rashes. No petechiae - Labs CBC & Chem 7: 04/03/22 06:10 04/03/22 17:34 Labs: Abnormal Lab Results - Last 24 Hours (Table) 04/03/22 04/03/22 Range/Units 06:10 06:10 Hgb 10.2 L (13.0-17.0) g/dL Hct 36.2 L (39.6-50.0) % MCV 74.6 L (80.0-97.0) fL MCH 21.0 L (27.0-32.0) pg MCHC 28.2 L (32.0-37.0) g/dL RDW 17.6 H (11.5-14.5) % Lymphocytes # 0.60 L (0.90-5.00) X 10*3/uL Eosinophils # 0.53 H (0.04-0.35) X 10*3/uL Potassium 3.1 L (3.5-5.5) mmol/L BUN 8.1 L (9.0-27.0) mg/dL Glucose 115 H (70-110) mg/dL Calcium 8.3 L (8.7-10.3) mg/dL Assessment and Plan Assessment: Acute urinary tract infection, secondary to Proteus and ESBL Klebsiella Constipation/ileus Mild elevation of the troponin, most likely it's troponin leak constipation and fecal impaction Hypertension History of seizure History of multiple sclerosis History of dysphagia status post PEG tube History of contracture History of trigeminal neuralgia History of dysarthria history of neurogenic bladder status post indwelling Aggarwal catheter History of multiple pneumonias and UTIs. Pressure ulcers Chronic approximate respiratory failure included oxygen via nasal cannula Plan: This is a pleasant 61 years old male who presents with UTI continue with antibiotic therapy ID team , currently on [facility] infectious disease consult Holds TUBE feeding Continue with gentle hydration at 50 mm per hour Continue with lactulose. At Colace with holding permit Labs and medication were reviewed.. Continue same treatment. Continue with symptomatic treatment. Resume home medication. Monitor lytes and vitals. DVT and GI prophylaxis. Further recommendations depends on the clinical course of the patient DVT prophylaxis: Subcutaneous heparin GI Prophylaxis: Pepcid Prognosis is guarded
[2022-04-03] MEDS ORDERED: POTASSIUM BICARBONATE/CIT AC 20 MEQ TABLET.EFF NG-TUBE SCH (19:00)
[2022-04-04] MEDS: carBAMazepine 200 MG TAB PEG/G-TUBE SCH ×2 (00:11→12:19)
[2022-04-04] MEDS: OXYBUTYNIN CHLORIDE 5 MG TAB PEG/G-TUBE SCH ×3 (00:11→16:25)
[2022-04-04] MEDS: BACLOFEN 10 MG TAB PEG/G-TUBE SCH ×3 (00:12→16:25)
[2022-04-04] MEDS: METOPROLOL TARTRATE 50 MG TAB PEG/G-TUBE SCH ×2 (00:12→12:18)
[2022-04-04] MEDS: HEPARIN SODIUM,PORCINE/PF 5,000 UNIT/0.5 ML SYRINGE SQ SCH ×3 (00:12→16:25)
[2022-04-04] MEDS: METOPROLOL TARTRATE 25 MG TAB PEG/G-TUBE SCH ×2 (00:12→12:18)
[2022-04-04] MEDS: FAMOTIDINE 8 MG/ML ORAL.SUSP PEG/G-TUBE SCH ×2 (00:13→20:45)
[2022-04-04] MEDS: ASPIRIN 81 MG PEG/G-TUBE SCH (09:41)
[2022-04-04] MEDS: DOCUSATE 100 MG CAP MISCELLANE SCH ×2 (09:41→20:30)
[2022-04-04] MEDS: LACOSAMIDE 150 MG TABLET PEG/G-TUBE SCH ×2 (09:41→20:31)
[2022-04-04] MEDS: LACTULOSE 20 GM/30 ML CUP PEG/G-TUBE SCH ×3 (09:42→20:34)
[2022-04-04 11:12] LABS: African American GFR (CKD) 117.2 (60.0-200.0); Anion Gap 12.7 mmol/L (10.00-18.00); BUN/Creat Ratio 12.14 Ratio (12.00-20.00); Blood Urea Nitrogen 8.5 mg/dL (9.0-27.0); Calcium 8.2 mg/dL (8.7-10.3); Carbon Dioxide 24.3 mmol/L (20.0-27.5); Magnesium 2.2 mg/dL (1.5-2.4); Non-African American GFR(CKD) 101.1 (60.0-200.0); Potassium 3.6 mmol/L (3.5-5.5)
[2022-04-04] MEDS: ERTAPENEM 1 GM in SODIUM CHLORIDE 0.9% 50 ML IVPB SCH (12:16)
--- NOTE | 2022-04-04 12:46 | XR ---
EXAMINATION TYPE: XR KUB DATE OF EXAM: 04/04/2022 Comparison: 04/03/2022 Clinical History: 61-year-old male Abdominal distention Findings: PEG tube noted. Supine imaging limited for assessment of free air. Retained oral contrast material th roughout the colon. Stool and contrast distends the rectum up to 6.7 cm wide. Gassy, redundant sigmoi d colon noted. Mild stool burden. No dilated small bowel seen. Pelvic loops. 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 Impression: 1. Nonobstructive bowel gas pattern. Prominent stool and contrast distends the rectum up to 6.7 cm wi de. 2. Mild stool and retained oral contrast throughout the remainder of the colon. 3. Gassy and redundant sigmoid colon noted. 4. PEG tube in place.
--- NOTE | 2022-04-04 17:13 | P.PN ---
Subjective Progress Note Date: 04/03/22 Principal diagnosis: Catheter associated urinary tract infection Patient is a 61-year-old male with past medical history significant for MS in this patient did have a history of recurrent UTIs and pneumonia has been presented to the hospital with mental status changes and coarse breath sounds has been diagnosed with catheter associated UTI. Patient currently did have tachycardia and flushing after he received Zerbexa which was discontinued On today's evaluation that is 04/03/2022, patient remains to be afebrile, the patient is breathing comfortably on room air, patient does not seem to be in any distress no vomiting or diarrhea reported by the nursing staff, Objective - Vital Signs Vital signs: Vital Signs Temp 98.1 F 04/03/22 11:16 Pulse 68 04/03/22 11:16 Resp 20 04/03/22 11:16 BP 131/86 04/03/22 11:16 Pulse Ox 98 04/03/22 11:16 FiO2 Intake & Output 04/02/22 04/03/22 04/03/22 18:59 06:59 18:59 Intake Total 220 0 Output Total 400 Balance 220 -400 Weight 83 kg Intake: Oral 0 Tube Feeding 160 Other 60 Output: Urine 400 Other: Voiding Method Indwelling Catheter Indwelling Catheter Indwelling Catheter # Bowel Movements 1 2 - Exam GENERAL DESCRIPTION: Middle-age male lying in bed in no distress RESPIRATORY SYSTEM: Unlabored breathing , decreased breath sounds at bases HEART: S1 S2 regular rate and rhythm , ABDOMEN: Soft , no tenderness EXTREMITIES: No edema feet - Labs CBC & Chem 7: 04/03/22 06:10 04/04/22 06:06 Labs: Abnormal Lab Results - Last 24 Hours (Table) 04/03/22 04/03/22 Range/Units 06:10 06:10 Hgb 10.2 L (13.0-17.0) g/dL Hct 36.2 L (39.6-50.0) % MCV 74.6 L (80.0-97.0) fL MCH 21.0 L (27.0-32.0) pg MCHC 28.2 L (32.0-37.0) g/dL RDW 17.6 H (11.5-14.5) % Lymphocytes # 0.60 L (0.90-5.00) X 10*3/uL Eosinophils # 0.53 H (0.04-0.35) X 10*3/uL Potassium 3.1 L (3.5-5.5) mmol/L BUN 8.1 L (9.0-27.0) mg/dL Glucose 115 H (70-110) mg/dL Calcium 8.3 L (8.7-10.3) mg/dL Assessment and Plan (1) UTI (urinary tract infection) Current Visit: Yes Status: Acute Code(s): N39.0 - URINARY TRACT INFECTION, SITE NOT SPECIFIED SNOMED Code(s): 69121824 Plan: 1patient presented to hospital with noisy breathing some shortness of breath and no hypoxemia and cloudy urine did have a positive UA and a low-grade fever likely representing catheter associated urinary tract infection. 2patient urine has been finalized with ESBL E. coli, patient did have questionable meropenem ALLERGY , as the patient meropenem ALLERGY was documented in 2017 and the patient has received multiple courses of Invanz afterwards, patient slowly clinically improving and will continue Invanz 1 g daily to finish a total of 2 week course of therapy, sister at the bedside questions concerned were answered Time with Patient: Less than 30
--- NOTE | 2022-04-04 17:15 | P.PN ---
Subjective Progress Note Date: 04/04/22 Principal diagnosis: Catheter associated urinary tract infection Patient is a 61-year-old male with past medical history significant for MS in this patient did have a history of recurrent UTIs and pneumonia has been presented to the hospital with mental status changes and coarse breath sounds has been diagnosed with catheter associated UTI. Patient currently did have tachycardia and flushing after he received Zerbexa which was discontinued On today's evaluation that is 04/04/2022, patient continues to be afebrile, the patient is breathing comfortably on room air, no vomiting or diarrhea reported by the nursing staff, patient seems to be comfortable and unable to provide any history Objective - Vital Signs Vital signs: Vital Signs Temp 98.3 F 04/04/22 11:38 Pulse 66 04/04/22 11:38 Resp 18 04/04/22 11:38 BP 147/90 04/04/22 11:38 Pulse Ox 100 04/04/22 11:38 FiO2 Intake & Output 04/03/22 04/04/22 04/04/22 18:59 06:59 18:59 Output Total 800 450 Balance -800 -450 Weight 83 kg 83 kg Output: Urine 800 450 Uretheral (Stein) 450 Other: Voiding Method Indwelling Catheter Indwelling Catheter Indwelling Catheter # Bowel Movements 2 1 - Exam GENERAL DESCRIPTION: Middle-age male lying in bed in no distress RESPIRATORY SYSTEM: Unlabored breathing , decreased breath sounds at bases HEART: S1 S2 regular rate and rhythm , ABDOMEN: Soft , no tenderness EXTREMITIES: No edema feet - Labs CBC & Chem 7: 04/03/22 06:10 04/04/22 06:06 Labs: Abnormal Lab Results - Last 24 Hours (Table) 04/04/22 Range/Units 06:06 BUN 8.5 L (9.0-27.0) mg/dL Calcium 8.2 L (8.7-10.3) mg/dL Assessment and Plan (1) UTI (urinary tract infection) Current Visit: Yes Status: Acute Code(s): N39.0 - URINARY TRACT INFECTION, SITE NOT SPECIFIED SNOMED Code(s): 34571293 Plan: 1patient presented to hospital with noisy breathing some shortness of breath and no hypoxemia and cloudy urine did have a positive UA and a low-grade fever likely representing catheter associated urinary tract infection. 2patient urine has been finalized with ESBL E. coli, patient did have questionable meropenem ALLERGY , as the patient meropenem ALLERGY was documented in 2017 and the patient has received multiple courses of Invanz afterwards, 3- patient has shown overall clinical improvement, patient to continue Invanz 1 g daily to finish a total of 2 week course of therapy, and monitor clinical course closely Time with Patient: Less than 30
--- NOTE | 2022-04-04 17:31 | P.PN ---
Progress Note - Text Progress Note Date: 04/04/22 Patient remains unchanged. He is tolerating tube feeds. On exam vessels are still. Abdomen soft. Patient will have his tube feeds advanced to goal.
[2022-04-04] MEDS: NYSTATIN 100,000 UNIT/ML SUSP 500,000 UNIT/5 ML CUP PO SCH ×2 (17:38→20:31)
--- NOTE | 2022-04-04 19:00 | P.PN ---
Subjective This is a pleasant 61 years old male with past medical history of Deep Vein Thrombosis not on anticoagulation, GERD/Reflux, Hypertension, Musculoskeletal Disorder,Seizure Disorder, S, Pt diagnosed with MS at the age of 39 yrs, pt has dysphagia/NPO with peg tube, contractures, last seizure 07/2020, trigeminal neuralgia, dysarthria/anarthria/neurogenic bladder with IDC-UTIs/sepsis, multiple pneumonias, incontinent of stool, pt has had decubitus ulcer coccyx- sister , DVT bilateral arms, hypoxia, oxygen at 2L/NC, pt is baseline non-verbal with peg tube and aggarwal catheter in place Patient was sent from shelter for respiratory signs and symptoms timbo breathing. Patient was started on levofloxacin and sent to the emergency room. Per ER note patient had low-grade fever of 99-100 Vital showing no fever on admission. Is slightly tachypneic. The rest of vitals are stable and he is saturating 95% on room air. Hemoglobin 11.9, rest of CBC, INR, BMP and liver enzymes are unremarkable. Troponin slightly elevated at 0.37. Urinalysis is suspicious for infection. EKG showing normal sinus rhythm at [address]-T changes Chest x-ray: Subsegmental atelectasis and scarring of the lung. Normal heart. No change compared to old exam KUB: There is evidence of some constipation and large bowel ileus. No free air. Fecal material increased compared to old exam. Large bulky has increased In the emergency room he was started on Tylenol, normal saline was started on cefepime 03/25/2022 Patient looks calm, breathing quietly. No agitation, hemodynamically stable. Labs reviewed He remains on cefepime Follow-up urine culture 03/26/2022 patient still lying in bed looks comfortable, his breathing comfortably. No respiratory distress. No agitation, it looks at baseline with contractures Urine culture, gram-negative bacilli 2. Patient remains on cefepime per ID team. Follow up final results of urine culture 03/27/2022 Patient has some reaction yesterday and he was given some steroids and IV fluids. Also received Benadryl. He is currently on normal saline 75 mL/h and antibiotics were adjusted to advance as urine culture is growing Proteus and ESBL Klebsiella in his urine. Surgical team also on the case for constipation and possible ileus 2. Feeding is held 03/28/2022 Patient been clinically stable since yesterday. No more breathing difficulty or any hypertensive episodes. NG tube in place and tube feed is on hold. He is still on Invanz for ESBL Klebsiella causing ileus 03/29/2022 Patient remains clinically awake, no much difference than yesterday, nonverbal at baseline. Still has NG tube Tube feed is on hold Still have no bowel movement. CT of the abdomen and pelvis without contrast showing no obstruction and fecal impaction Patient is on lactulose and surgery team of the case. 03/30/2022 Patient today clinically stable No more episodes of breathing difficulty or hypertension. NG tube still in place, patient had fecal impaction and so started enema is ordered by surgery team Abdominal benign Tube feedings: Hold Patient remains on Invanz for ESBL Klebsiella 03/31/2022 Patient is having bowel movement and NG tube was discontinued while liquid diet started per surgery team. We lowered his normal saline to 50 mL per hour Patient remains on Invanz We will keep monitoring 04/01/2022 Patient is tolerating liquid diet today and his PEG tube feeding is advanced as tolerated per surgery team recommendation Clinically he looks the same and stable. No bowel movement after the enema he received yesterday. He is on lactulose at baseline. We will add Colace with holding parameters 04/02/2022 Patient awake, and baseline. His getting little bit puffy and swollen. Tube feeding was started today at 20 mL/h None reported bowel movement but he started on Colace. We will discontinue IV fluids tonight Check labs in the morning 04/03/2022 Patient today has abdominal distention although he tolerates tube feeding and he has 2 small bowel movements. KUB showing persistent gaseous distention of the colon. Because of this are going to hold tube feeding overnight and restart tomorrow. Surgery team on the case, no surgical intervention for now 04/04/2022 Patient abdominal distention is improving. Patient to continue tube feeding per surgery as patient has 3 bowel movements per staff. KUB result is noted. Abdominal distention could be due to constipation and fecal impaction with sterling lala recommendations noted to resume tube feeding also discussed with the staff. Abdomen is soft with no tenderness, no nausea vomiting or diarrhea. Hemodynamically stable. Patient remains on antibiotic per ID team on Invanz Continue with nystatin for oral thrush Objective - Vital Signs Vital signs: Vital Signs Temp 98.3 F 04/04/22 11:38 Pulse 66 04/04/22 11:38 Resp 18 04/04/22 11:38 BP 147/90 04/04/22 11:38 Pulse Ox 100 04/04/22 11:38 FiO2 Intake & Output 04/03/22 04/04/22 04/04/22 18:59 06:59 18:59 Output Total 800 450 Balance -800 -450 Weight 83 kg Output: Urine 800 450 Uretheral (Aggarwal) 450 Other: Voiding Method Indwelling Catheter Indwelling Catheter Indwelling Catheter # Bowel Movements 2 1 - Exam -GENERAL: The patient is nonverbal at baseline, not in any acute distress. Well developed, well nourished. CONTRACTURES ( chronic) HEENT: Pupils are round and equally reacting to light. EOMI. No scleral icterus. No conjunctival pallor. Normocephalic, atraumatic. No pharyngeal erythema. No thyromegaly. CARDIOVASCULAR: S1 and S2 present. No murmurs, rubs, or gallops. PULMONARY: Chest is clear to auscultation, no wheezing or crackles. -ABDOMEN: Soft, nontender, nondistended, normoactive bowel sounds. No palpable organomegaly. PEG tube in place. Indwelling Aggarwal catheter in place MUSCULOSKELETAL: No joint swelling or deformity. EXTREMITIES: No cyanosis, clubbing, or pedal edema. NEUROLOGICAL: Gross neurological examination did not reveal any focal deficits. SKIN: No rashes. No petechiae - Labs CBC & Chem 7: 04/03/22 06:10 04/04/22 06:06 Labs: Abnormal Lab Results - Last 24 Hours (Table) 04/04/22 Range/Units 06:06 BUN 8.5 L (9.0-27.0) mg/dL Calcium 8.2 L (8.7-10.3) mg/dL Assessment and Plan Assessment: Acute urinary tract infection, secondary to Proteus and ESBL Klebsiella Constipation/ileus, improving Mild elevation of the troponin, most likely it's troponin leak constipation and fecal impaction Hypertension History of seizure History of multiple sclerosis History of dysphagia status post PEG tube History of contracture History of trigeminal neuralgia History of dysarthria history of neurogenic bladder status post indwelling Aggarwal catheter History of multiple pneumonias and UTIs. Pressure ulcers Chronic approximate respiratory failure included oxygen via nasal cannula Plan: This is a pleasant 61 years old male who presents with UTI continue with antibiotic therapy ID team , [facility] Continue with TUBE feeding for surgery team Continue with gentle hydration at 50 mm per hour Continue with lactulose. At Colace with holding permit Labs and medication were reviewed.. Continue same treatment. Continue with symptomatic treatment. Resume home medication. Monitor lytes and vitals. DVT and GI prophylaxis. Further recommendations depends on the clinical course of the patient DVT prophylaxis: Subcutaneous heparin GI Prophylaxis: Pepcid Prognosis is guarded
[2022-04-05] MEDS: METOPROLOL TARTRATE 50 MG TAB PEG/G-TUBE SCH ×2 (00:04→12:12)
[2022-04-05] MEDS: METOPROLOL TARTRATE 25 MG TAB PEG/G-TUBE SCH ×2 (00:04→12:12)
[2022-04-05] MEDS: HEPARIN SODIUM,PORCINE/PF 5,000 UNIT/0.5 ML SYRINGE SQ SCH ×3 (00:04→15:22)
[2022-04-05] MEDS: OXYBUTYNIN CHLORIDE 5 MG TAB PEG/G-TUBE SCH ×3 (00:04→15:22)
[2022-04-05] MEDS: carBAMazepine 200 MG TAB PEG/G-TUBE SCH ×2 (00:04→12:12)
[2022-04-05] MEDS: BACLOFEN 10 MG TAB PEG/G-TUBE SCH ×3 (00:04→15:22)
[2022-04-05 07:22] LABS: Glucose,Whole Blood 97 mg/dL (70-110)
[2022-04-05] MEDS: NYSTATIN 100,000 UNIT/ML SUSP 500,000 UNIT/5 ML CUP PO SCH ×4 (08:28→22:43)
[2022-04-05] MEDS: LACTULOSE 20 GM/30 ML CUP PEG/G-TUBE SCH ×3 (08:29→22:43)
[2022-04-05] MEDS: ASPIRIN 81 MG PEG/G-TUBE SCH (08:29)
[2022-04-05] MEDS: DOCUSATE 100 MG CAP MISCELLANE SCH ×2 (08:29→22:42)
[2022-04-05] MEDS: LACOSAMIDE 150 MG TABLET PEG/G-TUBE SCH ×2 (08:30→22:43)
[2022-04-05 11:05] LABS: Glucose,Whole Blood 114 mg/dL (70-110)
--- NOTE | 2022-04-05 11:42 | P.PN ---
Subjective This is a pleasant 61 years old male with past medical history of Deep Vein Thrombosis not on anticoagulation, GERD/Reflux, Hypertension, Musculoskeletal Disorder,Seizure Disorder, S, Pt diagnosed with MS at the age of 39 yrs, pt has dysphagia/NPO with peg tube, contractures, last seizure 07/2020, trigeminal neuralgia, dysarthria/anarthria/neurogenic bladder with IDC-UTIs/sepsis, multiple pneumonias, incontinent of stool, pt has had decubitus ulcer coccyx- sister , DVT bilateral arms, hypoxia, oxygen at 2L/NC, pt is baseline non-verbal with peg tube and aggarwal catheter in place Patient was sent from [facility] for respiratory signs and symptoms timbo breathing. Patient was started on levofloxacin and sent to the emergency room. Per ER note patient had low-grade fever of 99-100 Vital showing no fever on admission. Is slightly tachypneic. The rest of vitals are stable and he is saturating 95% on room air. Hemoglobin 11.9, rest of CBC, INR, BMP and liver enzymes are unremarkable. Troponin slightly elevated at 0.37. Urinalysis is suspicious for infection. EKG showing normal sinus rhythm at [address]-T changes Chest x-ray: Subsegmental atelectasis and scarring of the lung. Normal heart. No change compared to old exam KUB: There is evidence of some constipation and large bowel ileus. No free air. Fecal material increased compared to old exam. Large bulky has increased In the emergency room he was started on Tylenol, normal saline was started on cefepime 03/25/2022 Patient looks calm, breathing quietly. No agitation, hemodynamically stable. Labs reviewed He remains on cefepime Follow-up urine culture 03/26/2022 patient still lying in bed looks comfortable, his breathing comfortably. No respiratory distress. No agitation, it looks at baseline with contractures Urine culture, gram-negative bacilli 2. Patient remains on cefepime per ID team. Follow up final results of urine culture 03/27/2022 Patient has some reaction yesterday and he was given some steroids and IV fluids. Also received Benadryl. He is currently on normal saline 75 mL/h and antibiotics were adjusted to advance as urine culture is growing Proteus and ESBL Klebsiella in his urine. Surgical team also on the case for constipation and possible ileus 2. Feeding is held 03/28/2022 Patient been clinically stable since yesterday. No more breathing difficulty or any hypertensive episodes. NG tube in place and tube feed is on hold. He is still on Invanz for ESBL Klebsiella causing ileus 03/29/2022 Patient remains clinically awake, no much difference than yesterday, nonverbal at baseline. Still has NG tube Tube feed is on hold Still have no bowel movement. CT of the abdomen and pelvis without contrast showing no obstruction and fecal impaction Patient is on lactulose and surgery team of the case. 03/30/2022 Patient today clinically stable No more episodes of breathing difficulty or hypertension. NG tube still in place, patient had fecal impaction and so started enema is ordered by surgery team Abdominal benign Tube feedings: Hold Patient remains on Invanz for ESBL Klebsiella 03/31/2022 Patient is having bowel movement and NG tube was discontinued while liquid diet started per surgery team. We lowered his normal saline to 50 mL per hour Patient remains on Invanz We will keep monitoring 04/01/2022 Patient is tolerating liquid diet today and his PEG tube feeding is advanced as tolerated per surgery team recommendation Clinically he looks the same and stable. No bowel movement after the enema he received yesterday. He is on lactulose at baseline. We will add Colace with holding parameters 04/02/2022 Patient awake, and baseline. His getting little bit puffy and swollen. Tube feeding was started today at 20 mL/h None reported bowel movement but he started on Colace. We will discontinue IV fluids tonight Check labs in the morning 04/03/2022 Patient today has abdominal distention although he tolerates tube feeding and he has 2 small bowel movements. KUB showing persistent gaseous distention of the colon. Because of this are going to hold tube feeding overnight and restart tomorrow. Surgery team on the case, no surgical intervention for now 04/04/2022 Patient abdominal distention is improving. Patient to continue tube feeding per surgery as patient has 3 bowel movements per staff. KUB result is noted. Abdominal distention could be due to constipation and fecal impaction with sterling lala recommendations noted to resume tube feeding also discussed with the staff. Abdomen is soft with no tenderness, no nausea vomiting or diarrhea. Hemodynamically stable. Patient remains on antibiotic per ID team on Invanz Continue with nystatin for oral thrush 04/05/2022 Patient abdomen soft today, less distended and tube feeding is restarted at 30 mL per hour currently, so for patient tolerance that's well. Oral thrush is improving As per staff he had bowel movement yesterday, were not sure about today we going to monitor. Remains on Invanz. IV fluids were already stopped Objective - Vital Signs Vital signs: Vital Signs Temp 98.4 F 04/05/22 04:45 Pulse 79 04/05/22 04:45 Resp 16 04/05/22 04:45 BP 151/86 04/05/22 04:45 Pulse Ox 99 04/05/22 04:45 FiO2 Intake & Output 04/04/22 04/05/22 04/05/22 18:59 06:59 18:59 Intake Total 160 Output Total 1000 475 Balance -1000 -315 Weight 83 kg 84 kg Intake: Tube Feeding 160 Output: Urine 1000 475 Uretheral (Aggarwal) 450 Other: Voiding Method Indwelling Catheter Indwelling Catheter - Exam -GENERAL: The patient is nonverbal at baseline, not in any acute distress. Well developed, well nourished. CONTRACTURES ( chronic) HEENT: Pupils are round and equally reacting to light. EOMI. No scleral icterus. No conjunctival pallor. Normocephalic, atraumatic. No pharyngeal erythema. No thyromegaly. CARDIOVASCULAR: S1 and S2 present. No murmurs, rubs, or gallops. PULMONARY: Chest is clear to auscultation, no wheezing or crackles. -ABDOMEN: Soft, nontender, nondistended, normoactive bowel sounds. No palpable organomegaly. PEG tube in place. Indwelling Aggarwal catheter in place MUSCULOSKELETAL: No joint swelling or deformity. EXTREMITIES: No cyanosis, clubbing, or pedal edema. NEUROLOGICAL: Gross neurological examination did not reveal any focal deficits. SKIN: No rashes. No petechiae - Labs CBC & Chem 7: 04/03/22 06:10 04/04/22 06:06 Labs: Abnormal Lab Results - Last 24 Hours (Table) 04/04/22 Range/Units 06:06 BUN 8.5 L (9.0-27.0) mg/dL Calcium 8.2 L (8.7-10.3) mg/dL Assessment and Plan Assessment: Acute urinary tract infection, secondary to Proteus and ESBL Klebsiella Constipation/ileus, improving Mild elevation of the troponin, most likely it's troponin leak constipation and fecal impaction Hypertension History of seizure History of multiple sclerosis History of dysphagia status post PEG tube History of contracture History of trigeminal neuralgia History of dysarthria history of neurogenic bladder status post indwelling Aggarwal catheter History of multiple pneumonias and UTIs. Pressure ulcers Chronic approximate respiratory failure included oxygen via nasal cannula Plan: This is a pleasant 61 years old male who presents with UTI continue with antibiotic therapy ID team , currently on [facility] infectious disease consult Continue with TUBE feeding for surgery team Continue with gentle hydration at 50 mm per hour Continue with lactulose. At Colace with holding permit Labs and medication were reviewed.. Continue same treatment. Continue with symptomatic treatment. Resume home medication. Monitor lytes and vitals. DVT and GI prophylaxis. Further recommendations depends on the clinical course of the patient DVT prophylaxis: Subcutaneous heparin GI Prophylaxis: Pepcid Prognosis is guarded
[2022-04-05] MEDS: ERTAPENEM 1 GM in SODIUM CHLORIDE 0.9% 50 ML IVPB SCH (12:12)
--- NOTE | 2022-04-05 13:19 | P.PN ---
Subjective Progress Note Date: 04/05/22 CHIEF COMPLAINT: Ileus HISTORY OF PRESENT ILLNESS: Surgical service following regards to patient's constipation, fecal impaction and ileus. Patient had a small bowel movement yesterday and this morning. He is tolerating tube feeds at 30 mL per hour. Afebrile Patient seen and examined with Dr. cain PHYSICAL EXAM: VITAL SIGNS: Reviewed. GENERAL: Well-developed in no acute distress. HEENT: No sclera icterus. Extraocular movements grossly intact. Moist buccal mucosa. Head is atraumatic, normocephalic. ABDOMEN: Soft. Distended Nontender. ASSESSMENT: 1. Abdominal distention with evidence of fecal impaction on CAT scan 2. Constipation 3. Possible ileus secondary to UTI 4. UTI PLAN: -Continue to advance tube feeds to goal -Continue bowel regimen -Continue supportive care Physician Forest Aide note has been reviewed by physician. Signing provider agrees with the documented findings, assessment, and plan of care. Objective - Vital Signs Vital signs: Vital Signs Temp 98.4 F 04/05/22 11:04 Pulse 74 04/05/22 11:04 Resp 16 04/05/22 11:04 BP 123/83 04/05/22 11:04 Pulse Ox 98 04/05/22 11:04 FiO2 Intake & Output 04/04/22 04/05/22 04/05/22 18:59 06:59 18:59 Intake Total 160 Output Total 1000 475 700 Balance -1000 -315 -700 Weight 83 kg 84 kg Intake: Tube Feeding 160 Output: Urine 1000 475 700 Uretheral (Stein) 450 Other: Voiding Method Indwelling Catheter Indwelling Catheter # Bowel Movements 1 - Labs CBC & Chem 7: 04/03/22 06:10 04/04/22 06:06 Labs: Abnormal Lab Results - Last 24 Hours (Table) 04/05/22 Range/Units 11:05 POC Glucose (mg/dL) 114 H (70-110) mg/dL
[2022-04-05] MEDS: FAMOTIDINE 8 MG/ML ORAL.SUSP PEG/G-TUBE SCH (22:42)
[2022-04-06] MEDS: carBAMazepine 200 MG TAB PEG/G-TUBE SCH ×3 (00:13→23:50)
[2022-04-06] MEDS: BACLOFEN 10 MG TAB PEG/G-TUBE SCH ×4 (00:13→23:50)
[2022-04-06] MEDS: METOPROLOL TARTRATE 25 MG TAB PEG/G-TUBE SCH ×3 (00:13→23:50)
[2022-04-06] MEDS: OXYBUTYNIN CHLORIDE 5 MG TAB PEG/G-TUBE SCH ×3 (00:13→17:52)
[2022-04-06] MEDS: HEPARIN SODIUM,PORCINE/PF 5,000 UNIT/0.5 ML SYRINGE SQ SCH ×4 (00:13→23:50)
[2022-04-06] MEDS: METOPROLOL TARTRATE 50 MG TAB PEG/G-TUBE SCH ×3 (00:13→23:50)
[2022-04-06] MEDS: NYSTATIN 100,000 UNIT/ML SUSP 500,000 UNIT/5 ML CUP PO SCH ×4 (08:37→23:04)
[2022-04-06] MEDS: DOCUSATE 100 MG CAP MISCELLANE SCH ×3 (08:37→20:21)
[2022-04-06] MEDS: LACOSAMIDE 150 MG TABLET PEG/G-TUBE SCH ×2 (08:37→20:21)
[2022-04-06] MEDS: ASPIRIN 81 MG PEG/G-TUBE SCH (08:37)
[2022-04-06] MEDS: LACTULOSE 20 GM/30 ML CUP PEG/G-TUBE SCH ×2 (08:38→17:52)
--- NOTE | 2022-04-06 09:06 | P.PN ---
Subjective Progress Note Date: 04/05/22 Principal diagnosis: Catheter associated urinary tract infection Patient is a 61-year-old male with past medical history significant for MS in this patient did have a history of recurrent UTIs and pneumonia has been presented to the hospital with mental status changes and coarse breath sounds has been diagnosed with catheter associated UTI. Patient currently did have tachycardia and flushing after he received Zerbexa which was discontinued On today's evaluation that is 04/05/2022, patient remains to be afebrile, the patient is breathing comfortably on room air, no vomiting or diarrhea reported by the nursing staff, patient had been restarted on his tube feed and has been tolerating so far, patient unable to provide any history Objective - Vital Signs Vital signs: Vital Signs Temp 98.4 F 04/05/22 11:04 Pulse 74 04/05/22 11:04 Resp 16 04/05/22 11:04 BP 123/83 04/05/22 11:04 Pulse Ox 98 04/05/22 11:04 FiO2 Intake & Output 04/04/22 04/05/22 04/05/22 18:59 06:59 18:59 Intake Total 160 Output Total 1000 475 700 Balance -1000 -315 -700 Weight 83 kg 84 kg Intake: Tube Feeding 160 Output: Urine 1000 475 700 Uretheral (Stein) 450 Other: Voiding Method Indwelling Catheter Indwelling Catheter # Bowel Movements 1 - Exam GENERAL DESCRIPTION: Middle-age male lying in bed in no distress RESPIRATORY SYSTEM: Unlabored breathing , decreased breath sounds at bases HEART: S1 S2 regular rate and rhythm , ABDOMEN: Soft , no tenderness EXTREMITIES: No edema feet - Labs CBC & Chem 7: 04/03/22 06:10 04/04/22 06:06 Labs: Abnormal Lab Results - Last 24 Hours (Table) 04/05/22 Range/Units 11:05 POC Glucose (mg/dL) 114 H (70-110) mg/dL Assessment and Plan (1) UTI (urinary tract infection) Current Visit: Yes Status: Acute Code(s): N39.0 - URINARY TRACT INFECTION, SITE NOT SPECIFIED SNOMED Code(s): 14583255 Plan: 1patient presented to hospital with noisy breathing some shortness of breath and no hypoxemia and cloudy urine did have a positive UA and a low-grade fever likely representing catheter associated urinary tract infection. 2patient urine has been finalized with ESBL E. coli, patient did have questionable meropenem ALLERGY , as the patient meropenem ALLERGY was documented in 2017 and the patient has received multiple courses of Invanz afterwards, 3- patient has shown overall clinical improvement, patient to continue Invanz 1 g daily to finish a total of 2 week course of therapy, and continue supportive care Time with Patient: Less than 30
[2022-04-06] MEDS: ERTAPENEM 1 GM in SODIUM CHLORIDE 0.9% 50 ML IVPB SCH (12:43)
--- NOTE | 2022-04-06 13:44 | P.PN ---
Subjective Progress Note Date: 04/06/22 CHIEF COMPLAINT: Ileus HISTORY OF PRESENT ILLNESS: Surgical service following regards to patient's constipation, fecal impaction and ileus. Patient had a large bowel movement today. His tube feeds are at 50 mL per hour. Goal is at 75 mL per hour. Discussed with nursing staff to continue the lactulose to help with patient's constipation and impaction. Afebrile Patient seen and examined with Dr. cain PHYSICAL EXAM: VITAL SIGNS: Reviewed. GENERAL: Well-developed in no acute distress. HEENT: No sclera icterus. Extraocular movements grossly intact. Moist buccal mucosa. Head is atraumatic, normocephalic. ABDOMEN: Soft. Distended Nontender. ASSESSMENT: 1. Abdominal distention with evidence of fecal impaction on CAT scan 2. Constipation 3. Possible ileus secondary to UTI 4. UTI PLAN: -Continue to advance tube feeds to goal -Continue bowel regimen -Continue supportive care Physician Numerologist note has been reviewed by physician. Signing provider agrees with the documented findings, assessment, and plan of care. Objective - Vital Signs Vital signs: Vital Signs Temp 98.9 F 04/06/22 11:25 Pulse 65 04/06/22 11:25 Resp 16 04/06/22 11:25 BP 123/81 04/06/22 11:25 Pulse Ox 98 04/06/22 11:25 FiO2 Intake & Output 04/05/22 04/06/22 04/06/22 18:59 06:59 18:59 Output Total 1200 300 Balance -1200 -300 Weight 84.1 kg Output: Urine 1200 300 Other: Voiding Method Indwelling Catheter Indwelling Catheter # Bowel Movements 1 1 1 - Labs CBC & Chem 7: 04/03/22 06:10 04/04/22 06:06
[2022-04-06] MEDS: FAMOTIDINE 8 MG/ML ORAL.SUSP PEG/G-TUBE SCH (20:21)
[2022-04-06] MEDS ORDERED: LACTULOSE 20 GM/30 ML CUP PEG/G-TUBE PRN (20:51)
[2022-04-06] MEDS ORDERED: Magnesium Replacement Protocol 1 EACH MISC MISCELLANE PRN (20:56)
--- NOTE | 2022-04-06 20:56 | P.PN ---
Subjective This is a pleasant 61 years old male with past medical history of Deep Vein Thrombosis not on anticoagulation, GERD/Reflux, Hypertension, Musculoskeletal Disorder,Seizure Disorder, S, Pt diagnosed with MS at the age of 39 yrs, pt has dysphagia/NPO with peg tube, contractures, last seizure 07/2020, trigeminal neuralgia, dysarthria/anarthria/neurogenic bladder with IDC-UTIs/sepsis, multiple pneumonias, incontinent of stool, pt has had decubitus ulcer coccyx- sister , DVT bilateral arms, hypoxia, oxygen at 2L/NC, pt is baseline non-verbal with peg tube and aggarwal catheter in place Patient was sent from senior care for respiratory signs and symptoms timbo breathing. Patient was started on levofloxacin and sent to the emergency room. Per ER note patient had low-grade fever of 99-100 Vital showing no fever on admission. Is slightly tachypneic. The rest of vitals are stable and he is saturating 95% on room air. Hemoglobin 11.9, rest of CBC, INR, BMP and liver enzymes are unremarkable. Troponin slightly elevated at 0.37. Urinalysis is suspicious for infection. EKG showing normal sinus rhythm at [address]-T changes Chest x-ray: Subsegmental atelectasis and scarring of the lung. Normal heart. No change compared to old exam KUB: There is evidence of some constipation and large bowel ileus. No free air. Fecal material increased compared to old exam. Large bulky has increased In the emergency room he was started on Tylenol, normal saline was started on cefepime 03/25/2022 Patient looks calm, breathing quietly. No agitation, hemodynamically stable. Labs reviewed He remains on cefepime Follow-up urine culture 03/26/2022 patient still lying in bed looks comfortable, his breathing comfortably. No respiratory distress. No agitation, it looks at baseline with contractures Urine culture, gram-negative bacilli 2. Patient remains on cefepime per ID team. Follow up final results of urine culture 03/27/2022 Patient has some reaction yesterday and he was given some steroids and IV fluids. Also received Benadryl. He is currently on normal saline 75 mL/h and antibiotics were adjusted to advance as urine culture is growing Proteus and ESBL Klebsiella in his urine. Surgical team also on the case for constipation and possible ileus 2. Feeding is held 03/28/2022 Patient been clinically stable since yesterday. No more breathing difficulty or any hypertensive episodes. NG tube in place and tube feed is on hold. He is still on Invanz for ESBL Klebsiella causing ileus 03/29/2022 Patient remains clinically awake, no much difference than yesterday, nonverbal at baseline. Still has NG tube Tube feed is on hold Still have no bowel movement. CT of the abdomen and pelvis without contrast showing no obstruction and fecal impaction Patient is on lactulose and surgery team of the case. 03/30/2022 Patient today clinically stable No more episodes of breathing difficulty or hypertension. NG tube still in place, patient had fecal impaction and so started enema is ordered by surgery team Abdominal benign Tube feedings: Hold Patient remains on Invanz for ESBL Klebsiella 03/31/2022 Patient is having bowel movement and NG tube was discontinued while liquid diet started per surgery team. We lowered his normal saline to 50 mL per hour Patient remains on Invanz We will keep monitoring 04/01/2022 Patient is tolerating liquid diet today and his PEG tube feeding is advanced as tolerated per surgery team recommendation Clinically he looks the same and stable. No bowel movement after the enema he received yesterday. He is on lactulose at baseline. We will add Colace with holding parameters 04/02/2022 Patient awake, and baseline. His getting little bit puffy and swollen. Tube feeding was started today at 20 mL/h None reported bowel movement but he started on Colace. We will discontinue IV fluids tonight Check labs in the morning 04/03/2022 Patient today has abdominal distention although he tolerates tube feeding and he has 2 small bowel movements. KUB showing persistent gaseous distention of the colon. Because of this are going to hold tube feeding overnight and restart tomorrow. Surgery team on the case, no surgical intervention for now 04/04/2022 Patient abdominal distention is improving. Patient to continue tube feeding per surgery as patient has 3 bowel movements per staff. KUB result is noted. Abdominal distention could be due to constipation and fecal impaction with sterling lala recommendations noted to resume tube feeding also discussed with the staff. Abdomen is soft with no tenderness, no nausea vomiting or diarrhea. Hemodynamically stable. Patient remains on antibiotic per ID team on Invanz Continue with nystatin for oral thrush 04/05/2022 Patient abdomen soft today, less distended and tube feeding is restarted at 30 mL per hour currently, so for patient tolerance that's well. Oral thrush is improving As per staff he had bowel movement yesterday, were not sure about today we going to monitor. Remains on Invanz. IV fluids were already stopped 04/06/2022 Patient abdominal distention resolved, he had one big large bowel movement this morning and looks like his ileus also resolving. No abdominal tenderness on the abdomen is soft. continue tube feeding currently at 50 mm per hour, still needs to be advanced towards goal rate. Other than that he remains on Invanz for his complicated UTI with Aggarwal catheter in place Oral thrush improving with nystatin. Change lactulose home dose scheduled into when necessary. While continue with Colace scheduled dose but with holding parameters Objective - Vital Signs Vital signs: Vital Signs Temp 97.3 F L 04/06/22 05:00 Pulse 70 04/06/22 05:00 Resp 16 04/06/22 05:00 BP 139/74 04/06/22 05:00 Pulse Ox 97 04/06/22 05:00 FiO2 Intake & Output 04/05/22 04/06/22 04/06/22 18:59 06:59 18:59 Output Total 1200 300 Balance -1200 -300 Weight 84.1 kg Output: Urine 1200 300 Other: Voiding Method Indwelling Catheter # Bowel Movements 1 1 1 - Exam -GENERAL: The patient is nonverbal at baseline, not in any acute distress. Well developed, well nourished. CONTRACTURES ( chronic) HEENT: Pupils are round and equally reacting to light. EOMI. No scleral icterus. No conjunctival pallor. Normocephalic, atraumatic. No pharyngeal erythema. No thyromegaly. CARDIOVASCULAR: S1 and S2 present. No murmurs, rubs, or gallops. PULMONARY: Chest is clear to auscultation, no wheezing or crackles. -ABDOMEN: Soft, nontender, nondistended, normoactive bowel sounds. No palpable organomegaly. PEG tube in place. Indwelling Aggarwal catheter in place MUSCULOSKELETAL: No joint swelling or deformity. EXTREMITIES: No cyanosis, clubbing, or pedal edema. NEUROLOGICAL: Gross neurological examination did not reveal any focal deficits. SKIN: No rashes. No petechiae - Labs CBC & Chem 7: 04/03/22 06:10 04/04/22 06:06 Labs: Abnormal Lab Results - Last 24 Hours (Table) 04/05/22 Range/Units 11:05 POC Glucose (mg/dL) 114 H (70-110) mg/dL Assessment and Plan Assessment: Acute urinary tract infection, secondary to Proteus and ESBL Klebsiella Constipation/ileus, improving Mild elevation of the troponin, most likely it's troponin leak constipation and fecal impaction Hypertension History of seizure History of multiple sclerosis History of dysphagia status post PEG tube History of contracture History of trigeminal neuralgia History of dysarthria history of neurogenic bladder status post indwelling Aggarwal catheter History of multiple pneumonias and UTIs. Pressure ulcers Chronic approximate respiratory failure included oxygen via nasal cannula Plan: This is a pleasant 61 years old male who presents with UTI continue with antibiotic therapy ID team , [facility] Continue with TUBE feeding for surgery team, advanced to go Discontinue IV fluids Continue with lactulose but change it to when necessary. At Colace with holding permit Labs and medication were reviewed.. Continue same treatment. Continue with symptomatic treatment. Resume home medication. Monitor lytes and vitals. DVT and GI prophylaxis. Further recommendations depends on the clinical course of the patient DVT prophylaxis: Subcutaneous heparin GI Prophylaxis: Pepcid Prognosis is guarded
--- NOTE | 2022-04-07 08:04 | P.PN ---
Subjective Progress Note Date: 04/06/22 Principal diagnosis: Catheter associated urinary tract infection Patient is a 61-year-old male with past medical history significant for MS in this patient did have a history of recurrent UTIs and pneumonia has been presented to the hospital with mental status changes and coarse breath sounds has been diagnosed with catheter associated UTI. Patient currently did have tachycardia and flushing after he received Zerbexa which was discontinued On today's evaluation that is 04/06/2022, patient continues to be afebrile, the patient is breathing comfortably on room air, no vomiting or diarrhea reported by the nursing staff, patient had been tolerating his tube feed and currently at 40 mL an hour Objective - Vital Signs Vital signs: Vital Signs Temp 97.3 F L 04/06/22 05:00 Pulse 70 04/06/22 05:00 Resp 16 04/06/22 05:00 BP 139/74 04/06/22 05:00 Pulse Ox 97 04/06/22 05:00 FiO2 Intake & Output 04/05/22 04/06/22 04/06/22 18:59 06:59 18:59 Output Total 1200 300 Balance -1200 -300 Weight 84.1 kg Output: Urine 1200 300 Other: Voiding Method Indwelling Catheter # Bowel Movements 1 1 1 - Exam GENERAL DESCRIPTION: Middle-age male lying in bed in no distress RESPIRATORY SYSTEM: Unlabored breathing , decreased breath sounds at bases HEART: S1 S2 regular rate and rhythm , ABDOMEN: Soft , no tenderness EXTREMITIES: No edema feet - Labs CBC & Chem 7: 04/03/22 06:10 04/04/22 06:06 Labs: Abnormal Lab Results - Last 24 Hours (Table) 04/05/22 Range/Units 11:05 POC Glucose (mg/dL) 114 H (70-110) mg/dL Assessment and Plan (1) UTI (urinary tract infection) Current Visit: Yes Status: Acute Code(s): N39.0 - URINARY TRACT INFECTION, SITE NOT SPECIFIED SNOMED Code(s): 80010464 Plan: 1patient presented to hospital with noisy breathing some shortness of breath and no hypoxemia and cloudy urine did have a positive UA and a low-grade fever likely representing catheter associated urinary tract infection. 2patient urine has been finalized with ESBL E. coli, patient did have questionable meropenem ALLERGY , as the patient meropenem ALLERGY was documented in 2016 and the patient has received multiple courses of Invanz afterwards, 3- patient clinical improvement and will continue Invanz 1 g daily to finish a total of 2 week course of therapy, and monitor clinical course closely
[2022-04-07] MEDS: DOCUSATE 100 MG CAP MISCELLANE SCH ×2 (08:08→20:46)
[2022-04-07] MEDS: BACLOFEN 10 MG TAB PEG/G-TUBE SCH ×2 (08:08→16:56)
[2022-04-07] MEDS: LACOSAMIDE 150 MG TABLET PEG/G-TUBE SCH ×2 (08:08→20:46)
[2022-04-07] MEDS: ASPIRIN 81 MG PEG/G-TUBE SCH (08:08)
[2022-04-07] MEDS: OXYBUTYNIN CHLORIDE 5 MG TAB PEG/G-TUBE SCH ×2 (08:09→16:56)
[2022-04-07] MEDS: NYSTATIN 100,000 UNIT/ML SUSP 500,000 UNIT/5 ML CUP PO SCH ×3 (08:09→16:56)
[2022-04-07] MEDS: HEPARIN SODIUM,PORCINE/PF 5,000 UNIT/0.5 ML SYRINGE SQ SCH ×2 (08:09→16:56)
[2022-04-07 08:43] LABS: Glucose,Whole Blood 121 mg/dL (70-110)
[2022-04-07 11:05] LABS: Basophils # (A) 0.02 X 10*3/uL (0.00-0.10); Basophils % (A) 0.3 %; Eosinophils # (A) 0.31 X 10*3/uL (0.04-0.35); Eosinophils % (A) 5.1 %; HGB 11.4 g/dL (13.0-17.0); Immature Grans, Automated 0.5 %; Lymphocytes # (A) 0.95 X 10*3/uL (0.90-5.00); Lymphocytes % (A) 15.6 %; MCH 21.1 pg (27.0-32.0); MCHC 28.5 g/dL (32.0-37.0); MCV 74.1 fL (80.0-97.0); Mean Platelet Volume 11.9 fL (9.5-12.2); Monocytes # (A) 0.45 X 10*3/uL (0.20-1.00); Monocytes % (A) 7.4 %; NRBC Per 100 WBC 0 /100 WBCS (0.0-0.0); Neutrophils # (A) 4.33 X 10*3/uL (1.80-7.70); Neutrophils % (A) 71.1 %; Platelet Count 389 X 10*3/uL (140-440); RDW 19.3 % (11.5-14.5); WBC 6.09 X 10*3/uL (4.50-10.00)
[2022-04-07 11:56] LABS: Magnesium 2.3 mg/dL (1.5-2.4)
[2022-04-07 12:14] LABS: Anion Gap 11.9 mmol/L (10.00-18.00); BUN/Creat Ratio 16.25 Ratio (12.00-20.00); Calcium 8.7 mg/dL (8.7-10.3); Carbon Dioxide 23.1 mmol/L (20.0-27.5); Non-African American GFR(CKD) 95.7 (60.0-200.0); Potassium 4.7 mmol/L (3.5-5.5)
[2022-04-07 13:00] VITALS: RESP 18
--- NOTE | 2022-04-07 13:06 | P.PN ---
Subjective Progress Note Date: 04/07/22 Principal diagnosis: Catheter associated urinary tract infection Patient is a 61-year-old male with past medical history significant for MS in this patient did have a history of recurrent UTIs and pneumonia has been presented to the hospital with mental status changes and coarse breath sounds has been diagnosed with catheter associated UTI. Patient currently did have tachycardia and flushing after he received Zerbexa which was discontinued On today's evaluation that is 04/07/2022, patient remains to be afebrile, the patient is breathing comfortably on room air, no vomiting or diarrhea reported by the nursing staff, patient had been tolerating his tube feed which is currently running at 75 mL an hour Objective - Vital Signs Vital signs: Vital Signs Temp 98.4 F 04/07/22 04:36 Pulse 70 04/07/22 08:00 Resp 16 04/07/22 08:00 BP 143/86 04/07/22 04:36 Pulse Ox 92 L 04/07/22 04:36 FiO2 Intake & Output 04/06/22 04/07/22 04/07/22 18:59 06:59 18:59 Output Total 1000 500 Balance -1000 -500 Weight 81.5 kg Output: Urine 1000 500 Other: Voiding Method Indwelling Catheter Indwelling Catheter Indwelling Catheter # Bowel Movements 1 1 - Exam GENERAL DESCRIPTION: Middle-age male lying in bed in no distress RESPIRATORY SYSTEM: Unlabored breathing , decreased breath sounds at bases HEART: S1 S2 regular rate and rhythm , ABDOMEN: Soft , no tenderness EXTREMITIES: No edema feet - Labs CBC & Chem 7: 04/07/22 06:15 04/07/22 06:15 Labs: Abnormal Lab Results - Last 24 Hours (Table) 04/07/22 04/07/22 Range/Units 06:15 08:41 Hgb 11.4 L (13.0-17.0) g/dL MCV 74.1 L (80.0-97.0) fL MCH 21.1 L (27.0-32.0) pg MCHC 28.5 L (32.0-37.0) g/dL RDW 19.3 H (11.5-14.5) % POC Glucose (mg/dL) 121 H (70-110) mg/dL Assessment and Plan (1) UTI (urinary tract infection) Current Visit: Yes Status: Acute Code(s): N39.0 - URINARY TRACT INFECTION, SITE NOT SPECIFIED SNOMED Code(s): 23378584 Plan: 1patient presented to hospital with noisy breathing some shortness of breath and no hypoxemia and cloudy urine did have a positive UA and a low-grade fever likely representing catheter associated urinary tract infection. 2patient urine has been finalized with ESBL E. coli, patient did have questionable meropenem ALLERGY , as the patient meropenem ALLERGY was documented in 2017 and the patient has received multiple courses of Invanz afterwards, 3- patient slowly clinically improving and currently being treated with Invanz 1 g daily , with a plan for a total of 2 week course of therapy, and monitor clinical course closely Time with Patient: Less than 30
--- NOTE | 2022-04-07 13:09 | P.PN ---
Subjective Progress Note Date: 04/07/22 CHIEF COMPLAINT: Ileus HISTORY OF PRESENT ILLNESS: Surgical service following regards to patient's constipation, fecal impaction and ileus. Patient is having bowel movements. No nausea or vomiting reported. He is tolerating tube feeds and is at goal at 75 mL per hour. Afebrile Patient seen and examined with Dr. cain PHYSICAL EXAM: VITAL SIGNS: Reviewed. GENERAL: Well-developed in no acute distress. HEENT: No sclera icterus. Extraocular movements grossly intact. Moist buccal mucosa. Head is atraumatic, normocephalic. ABDOMEN: Soft. Decreased abdominal distention Nontender. ASSESSMENT: 1. Abdominal distention with evidence of fecal impaction on CAT scan 2. Constipation 3. Possible ileus secondary to UTI 4. UTI PLAN: -Continue tube feeds -Continue bowel regimen -Continue supportive care -Patient can be discharged from surgical standpoint when medically cleared Physician Stapler Machine note has been reviewed by physician. Signing provider agrees with the documented findings, assessment, and plan of care. Objective - Vital Signs Vital signs: Vital Signs Temp 98.1 F 04/07/22 12:07 Pulse 85 04/07/22 12:07 Resp 18 04/07/22 12:07 BP 152/63 04/07/22 12:07 Pulse Ox 96 04/07/22 12:07 FiO2 Intake & Output 04/06/22 04/07/22 04/07/22 18:59 06:59 18:59 Output Total 1000 500 Balance -1000 -500 Weight 81.5 kg Output: Urine 1000 500 Other: Voiding Method Indwelling Catheter Indwelling Catheter Indwelling Catheter # Bowel Movements 1 1 - Labs CBC & Chem 7: 04/07/22 06:15 04/07/22 06:15 Labs: Abnormal Lab Results - Last 24 Hours (Table) 04/07/22 04/07/22 Range/Units 06:15 08:41 Hgb 11.4 L (13.0-17.0) g/dL MCV 74.1 L (80.0-97.0) fL MCH 21.1 L (27.0-32.0) pg MCHC 28.5 L (32.0-37.0) g/dL RDW 19.3 H (11.5-14.5) % POC Glucose (mg/dL) 121 H (70-110) mg/dL
[2022-04-07 13:41] VITALS: BMI 24.3
[2022-04-07] MEDS: carBAMazepine 200 MG TAB PEG/G-TUBE SCH (13:52)
[2022-04-07] MEDS: METOPROLOL TARTRATE 25 MG TAB PEG/G-TUBE SCH (13:52)
[2022-04-07] MEDS: METOPROLOL TARTRATE 50 MG TAB PEG/G-TUBE SCH (13:52)
[2022-04-07] MEDS: ERTAPENEM 1 GM in SODIUM CHLORIDE 0.9% 50 ML IVPB SCH (13:53)
--- NOTE | 2022-04-07 14:36 | P.DS ---
Providers Date of admission: 03/24/22 00:08 Expected date of discharge: 04/07/22 Attending physician: Rekha Schmidt MD Consults: 03/24/22 07:00 Consult Physician Urgent Consulting Provider: Sonal Farah Consult Reason/Comments: uti Do you want consulting provider notified?: Yes 03/24/22 07:01 Consult Physician Urgent Consulting Provider: Daniel Ricci Consult Reason/Comments: troponin leak Do you want consulting provider notified?: Yes 03/27/22 08:19 Consult Physician Routine Consulting Provider: Enrique Case Consult Reason/Comments: ileus Do you want consulting provider notified?: Already Contacted Primary care physician: [facility] Course: 61 years old male with past medical history of Deep Vein Thrombosis not on anticoagulation, GERD/Reflux, Hypertension, Musculoskeletal Disorder,Seizure Disorder, S, Pt diagnosed with MS at the age of 39 yrs, pt has dysphagia/NPO with peg tube, contractures, last seizure 07/2020, trigeminal neuralgia, dysarthria/anarthria/neurogenic bladder with IDC-UTIs/sepsis, multiple pneumonias, incontinent of stool, pt has had decubitus ulcer coccyx-sister , DVT bilateral arms, hypoxia, oxygen at 2L/NC, pt is baseline non-verbal with peg tube and aggarwal catheter in place Patient was sent from half-way for respiratory signs and symptoms timbo breathing. Patient was started on levofloxacin and sent to the emergency room. Per ER note patient had low-grade fever of 99-100 Vital showing no fever on admission. Is slightly tachypneic. The rest of vitals are stable and he is saturating 95% on room air. Hemoglobin 11.9, rest of CBC, INR, BMP and liver enzymes are unremarkable. Troponin slightly elevated at 0.37. Urinalysis is suspicious for infection. EKG showing normal sinus rhythm at [address]-T changes Chest x-ray: Subsegmental atelectasis and scarring of the lung. Normal heart. No change compared to old exam KUB: There is evidence of some constipation and large bowel ileus. No free air. Fecal material increased compared to old exam. Large bulky has increased In the emergency room he was started on Tylenol, normal saline was started on cefepime 03/25/2022 Patient looks calm, breathing quietly. No agitation, hemodynamically stable. Labs reviewed He remains on cefepime Follow-up urine culture 03/26/2022 patient still lying in bed looks comfortable, his breathing comfortably. No respiratory distress. No agitation, it looks at baseline with contractures Urine culture, gram-negative bacilli 2. Patient remains on cefepime per ID team. Follow up final results of urine culture 03/27/2022 Patient has some reaction yesterday and he was given some steroids and IV fluids. Also received Benadryl. He is currently on normal saline 75 mL/h and antibiotics were adjusted to advance as urine culture is growing Proteus and ESBL Klebsiella in his urine. Surgical team also on the case for constipation and possible ileus 2. Feeding is held 03/28/2022 Patient been clinically stable since yesterday. No more breathing difficulty or any hypertensive episodes. NG tube in place and tube feed is on hold. He is still on Invanz for ESBL Klebsiella causing ileus 03/29/2022 Patient remains clinically awake, no much difference than yesterday, nonverbal at baseline. Still has NG tube Tube feed is on hold Still have no bowel movement. CT of the abdomen and pelvis without contrast showing no obstruction and fecal impaction Patient is on lactulose and surgery team of the case. 03/30/2022 Patient today clinically stable No more episodes of breathing difficulty or hypertension. NG tube still in place, patient had fecal impaction and so started enema is ordered by surgery team Abdominal benign Tube feedings: Hold Patient remains on Invanz for ESBL Klebsiella 03/31/2022 Patient is having bowel movement and NG tube was discontinued while liquid diet started per surgery team. We lowered his normal saline to 50 mL per hour Patient remains on Invanz We will keep monitoring 04/01/2022 Patient is tolerating liquid diet today and his PEG tube feeding is advanced as tolerated per surgery team recommendation Clinically he looks the same and stable. No bowel movement after the enema he received yesterday. He is on lactulose at baseline. We will add Colace with holding parameters 04/02/2022 Patient awake, and baseline. His getting little bit puffy and swollen. Tube feeding was started today at 20 mL/h None reported bowel movement but he started on Colace. We will discontinue IV fluids tonight Check labs in the morning 04/03/2022 Patient today has abdominal distention although he tolerates tube feeding and he has 2 small bowel movements. KUB showing persistent gaseous distention of the colon. Because of this are going to hold tube feeding overnight and restart tomorrow. Surgery team on the case, no surgical intervention for now 04/04/2022 Patient abdominal distention is improving. Patient to continue tube feeding per surgery as patient has 3 bowel movements per staff. KUB result is noted. Abdominal distention could be due to constipation and fecal impaction with surgery recommendations noted to resume tube feeding also discussed with the staff. Abdomen is soft with no tenderness, no nausea vomiting or diarrhea. Hemodynamically stable. Patient remains on antibiotic per ID team on Invanz Continue with nystatin for oral thrush 04/05/2022 Patient abdomen soft today, less distended and tube feeding is restarted at 30 mL per hour currently, so for patient tolerance that's well. Oral thrush is improving As per staff he had bowel movement yesterday, were not sure about today we going to monitor. Remains on Invanz. IV fluids were already stopped 04/06/2022 Patient abdominal distention resolved, he had one big large bowel movement this morning and looks like his ileus also resolving. No abdominal tenderness on the abdomen is soft. continue tube feeding currently at 50 mm per hour, still needs to be advanced towards goal rate. Other than that he remains on Invanz for his complicated UTI with Aggarwal catheter in place Oral thrush improving with nystatin. Change lactulose home dose scheduled into when necessary. While continue with Colace scheduled dose but with holding parameters 04/07/2022 Dischage Plan: 1patient presented to hospital with noisy breathing some shortness of breath and no hypoxemia and cloudy urine did have a positive UA and a low-grade fever likely representing catheter associated urinary tract infection. 2patient urine has been finalized with ESBL E. coli, patient did have questionable meropenem ALLERGY , as the patient meropenem ALLERGY was documented in 2017 and the patient has received multiple courses of Invanz afterwards, 3- patient slowly clinically improving and currently being treated with Invanz 1 g daily , with a plan for a total of 2 week course of therapy, and monitor clinical course closely Patient Condition at Discharge: Stable Plan - Discharge Summary Discharge Rx Participant: No New Discharge Prescriptions: New Docusate [Colace] 100 mg MISCELLANE BID cap Ertapenem [INVanz] 1 gm IVPB DAILY@1200 14 Days #14 each Nystatin 100,000 Unit/ml Susp [Mycostatin Oral Susp] 500,000 unit PO QID #0 ml Continue Oxybutynin Chloride [Ditropan Oral Soln] 5 mg PEG/G-TUBE TID@0600,1400,2200 Ipratropium-Albuterol Nebulize [Duoneb 0.5 mg-3 mg/3 ml Soln] 3 ml INHALATION RT-Q6H Baclofen [Lioresal] 10 mg PEG/G-TUBE TID@0600,1400,0 Cranberry Fruit Extract [Cranberry] 500 mg PEG/G-TUBE DAILY@0900 Aspirin 81 mg PEG/G-TUBE DAILY@0900 Acetaminophen Tab [Tylenol] 650 mg PEG/G-TUBE Q6H PRN MDD 3GM/24HR PRN Reason: Fever And/ Or Pain carBAMazepine [carBAMazepine Oral Susp] 200 mg PEG/G-TUBE BID@09,2099 Amantadine Hcl Solution 50mg/5ml 100 mg PEG/G-TUBE DAILY@0900 Scopolamine [Scopolamine 1 MG/72 HR patch] 1 patch TRANSDERM Q72H Lactulose 20 gm PEG/G-TUBE TID@0600,1400,2200 Uti Stat 30 ml PEG/G-TUBE BID@09,2099 Furosemide [Lasix] 40 mg PEG/G-TUBE DAILY@0900 Lacosamide [Vimpat] 150 mg PEG/G-TUBE BID@899,2099 Magnesium Hydroxide [Milk of Magnesia Concentrate] 7,200 mg PEG/G-TUBE Q72H PRN PRN Reason: Constipation Metoprolol Tartrate [Lopressor] 25 mg PEG/G-TUBE BID@0900,2100 Metoprolol Tartrate [Lopressor] 50 mg PEG/G-TUBE BID@0900,2100 Cholecalciferol [Vitamin D3 (25 Mcg = 1000 Iu)] 25 mcg PEG/G-TUBE DAILY@0900 guaiFENesin [Mucinex] 600 mg PEG/G-TUBE BID@0900,2099 Famotidine 40mg/5ml Susp 20 mg PEG/G-TUBE HS@2100 Artificial Tears-Hypromellose [Artificial Tear Drops] 1 drops BOTH EYES Q8H LORazepam ORAL CONC [Ativan Intensol] 1 mg PO DAILY PRN PRN Reason: Seizures Discontinued Levofloxacin [Levaquin] 500 mg PEG/G-TUBE ONCE Levofloxacin [Levaquin] 500 mg PEG/G-TUBE DAILY@0900 Discharge Medication List Oxybutynin Chloride [Ditropan Oral Soln] 5 mg PEG/G-TUBE TID@0600,1400,2200 09/08/19 [History] Ipratropium-Albuterol Nebulize [Duoneb 0.5 mg-3 mg/3 ml Soln] 3 ml INHALATION R T-Q6H 12/16/19 [History] Baclofen [Lioresal] 10 mg PEG/G-TUBE TID@0600,1400,2200 07/16/20 [History] Aspirin 81 mg PEG/G-TUBE DAILY@89911/27/20 [History] Cranberry Fruit Extract [Cranberry] 500 mg PEG/G-TUBE DAILY@89911/27/20 [History] Magnesium Hydroxide [Milk of Magnesia Concentrate] 7,200 mg PEG/G-TUBE Q72H PRN 03/07/21 [History] Acetaminophen Tab [Tylenol] 650 mg PEG/G-TUBE Q6H PRN MDD 3GM/24HR 06/13/21 [History] Metoprolol Tartrate [Lopressor] 25 mg PEG/G-TUBE BID@899,209906/13/21 [History] Metoprolol Tartrate [Lopressor] 50 mg PEG/G-TUBE BID@899,209906/13/21 [History] Cholecalciferol [Vitamin D3 (25 Mcg = 1000 Iu)] 25 mcg PEG/G-TUBE DAILY@89907/02/21 [History] carBAMazepine [carBAMazepine Oral Susp] 200 mg PEG/G-TUBE BID@899,209907/02/21 [History] Amantadine Hcl Solution 50mg/5ml 100 mg PEG/G-TUBE DAILY@89912/22/21 [History] guaiFENesin [Mucinex] 600 mg PEG/G-TUBE BID@899,209912/22/21 [History] Lactulose 20 gm PEG/G-TUBE TID@0600,1400,2200 01/03/22 [History] Scopolamine [Scopolamine 1 MG/72 HR patch] 1 patch TRANSDERM Q72H 01/03/22 [History] Artificial Tears-Hypromellose [Artificial Tear Drops] 1 drops BOTH EYES Q8H 03/24/22 [History] Famotidine 40mg/5ml Susp 20 mg PEG/G-TUBE HS@209903/24/22 [History] Furosemide [Lasix] 40 mg PEG/G-TUBE DAILY@0900 03/24/22 [History] LORazepam ORAL CONC [Ativan Intensol] 1 mg PO DAILY PRN 03/24/22 [History] Lacosamide [Vimpat] 150 mg PEG/G-TUBE BID@0900,209903/24/22 [History] Uti Stat 30 ml PEG/G-TUBE BID@0900,209903/24/22 [History] Docusate [Colace] 100 mg MISCELLANE BID cap 04/07/22 [Rx] Ertapenem [INVanz] 1 gm IVPB DAILY@1200 14 Days #14 each 04/07/22 [Rx] Nystatin 100,000 Unit/ml Susp [Mycostatin Oral Susp] 500,000 unit PO QID #0 ml 04/07/22 [Rx] Follow up Appointment(s)/Referral(s): Matteo Hernandez MD [Primary Care Provider] - 1-2 days Discharge Disposition: TRANSFER TO SNF/ECF
[2022-04-07 16:00] LABS: Glucose,Whole Blood 108 mg/dL (70-110)
[2022-04-07 20:15] VITALS: PULSE 73; TEMP 98.7
[2022-04-07] MEDS ORDERED: amLODIPine 5 MG TAB PO STA (20:35)
[2022-04-07 22:00] VITALS: BP 143/86
== END 2022-04-07 23:15 | DRG 698 ==
LOC: EC 18:53 → 5NMEDONC 03-24 00:08 → 3SCARD 03-24 01:03 → 5NMEDONC 03-24 11:07
PROVIDERS: ADMIT Internal Medicine; ATTEND Internal Medicine
PROC: 3E0H76Z Introduction of Nutritional Substance into Lower GI, Via Natural or Artificial Opening (ICD-10-PCS; principal; 2022-03-24)
DX: T83.518A Infection and inflammatory reaction due to other urinary catheter, initial encounter (principal); G82.50 Quadriplegia, unspecified; K56.7 Ileus, unspecified; B37.0 Candidal stomatitis; J98.11 Atelectasis; N39.0 Urinary tract infection, site not specified; J96.10 Chronic respiratory failure, unspecified whether with hypoxia or hypercapnia; I10 Essential (primary) hypertension; G35 Multiple sclerosis; L89.612 Pressure ulcer of right heel, stage 2; K21.9 Gastro-esophageal reflux disease without esophagitis; E86.0 Dehydration; N31.9 Neuromuscular dysfunction of bladder, unspecified; R13.10 Dysphagia, unspecified; Y84.6 Urinary catheterization as the cause of abnormal reaction of the patient, or of later complication, without mention of misadventure at the time of the procedure; B96.4 Proteus (mirabilis) (morganii) as the cause of diseases classified elsewhere; B96.1 Klebsiella pneumoniae [K. pneumoniae] as the cause of diseases classified elsewhere; K56.41 Fecal impaction; F32.A Depression, unspecified; G40.909 Epilepsy, unspecified, not intractable, without status epilepticus; R41.89 Other symptoms and signs involving cognitive functions and awareness; R00.0 Tachycardia, unspecified; Z20.822 Contact with and (suspected) exposure to COVID-19; Z87.440 Personal history of urinary (tract) infections; Z74.01 Bed confinement status; Z86.718 Personal history of other venous thrombosis and embolism; Z87.01 Personal history of pneumonia (recurrent); Z86.19 Personal history of other infectious and parasitic diseases; Z93.1 Gastrostomy status; Z79.82 Long term (current) use of aspirin; Z79.899 Other long term (current) drug therapy; Z88.1 Allergy status to other antibiotic agents; Z86.14 Personal history of Methicillin resistant Staphylococcus aureus infection; Z90.89 Acquired absence of other organs; Z98.890 Other specified postprocedural states; Z82.49 Family history of ischemic heart disease and other diseases of the circulatory system
CPT/HCPCS: 36410; 36415; 71045; 71046; 74018; 74176; 76937; 80048; 80053; 81001; 82150; 83605; 83690; 83735; 83880; 84132; 84484; 85025; 85610; 85730; 87040; 87077; 87086; 87186; 87502; 87635; 93005; 94760; 96360; 96361; 96372; 99285

== ENCOUNTER 2022-04-20 14:11 | Emergency (ER) | payer MEDICARE, OTHER ==
[2022-04-20 14:44] VITALS: TEMP 97.6
--- NOTE | 2022-04-20 16:55 | ED ---
General Adult HPI - General Chief complaint: Recheck/Abnormal Lab/Rx Stated complaint: Clogged peg tube Time Seen by Provider: 04/20/22 14:30 Source: patient, EMS, RN notes reviewed, old records reviewed Mode of arrival: EMS Limitations: language barrier, altered mental status, physical limitation - History of Present Illness Initial comments: This is a 61-year-old male who has had PEG tube placed for quite a while. According to the skilled nursing patient's PEG tube was clogged so they sent him to the emergency department. Patient is unable give any history no further history was available to us and no one came with the patient. - Related Data Home Medications Medication Instructions Recorded Confirmed Oxybutynin Chloride [Ditropan Oral 5 mg PEG/G-TUBE TID@0600,1400,2200 09/08/19 03/24/22 Soln] Ipratropium-Albuterol Nebulize 3 ml INHALATION RT-Q6H 12/16/19 03/24/22 [Duoneb 0.5 mg-3 mg/3 ml Soln] Baclofen [Lioresal] 10 mg PEG/G-TUBE TID@0600,1400,2200 07/16/20 03/24/22 Aspirin 81 mg PEG/G-TUBE DAILY@0900 11/27/20 03/24/22 Cranberry Fruit Extract [Cranberry] 500 mg PEG/G-TUBE DAILY@0900 11/27/20 03/24/22 Magnesium Hydroxide [Milk of 7,200 mg PEG/G-TUBE Q72H PRN 03/07/21 03/24/22 Magnesia Concentrate] Acetaminophen Tab [Tylenol] 650 mg PEG/G-TUBE Q6H PRN MDD 06/13/21 03/24/22 3GM/24HR Metoprolol Tartrate [Lopressor] 25 mg PEG/G-TUBE BID@0900,209906/13/21 03/24/22 Metoprolol Tartrate [Lopressor] 50 mg PEG/G-TUBE BID@0900,209906/13/21 03/24/22 Cholecalciferol [Vitamin D3 (25 25 mcg PEG/G-TUBE DAILY@0900 07/02/21 03/24/22 Mcg = 1000 Iu)] carBAMazepine [carBAMazepine Oral 200 mg PEG/G-TUBE BID@0900,209907/02/21 03/24/22 Susp] Amantadine Hcl Solution 50mg/5ml 100 mg PEG/G-TUBE DAILY@0900 12/22/21 03/24/22 guaiFENesin [Mucinex] 600 mg PEG/G-TUBE BID@0900,209912/22/21 03/24/22 Lactulose 20 gm PEG/G-TUBE TID@0600,1400,2200 01/03/22 03/24/22 Scopolamine [Scopolamine 1 MG/72 1 patch TRANSDERM Q72H 01/03/22 03/24/22 HR patch] Artificial Tears-Hypromellose 1 drops BOTH EYES Q8H 03/24/22 03/24/22 [Artificial Tear Drops] Famotidine 40mg/5ml Susp 20 mg PEG/G-TUBE HS@209903/24/22 03/24/22 Furosemide [Lasix] 40 mg PEG/G-TUBE DAILY@0900 03/24/22 03/24/22 LORazepam ORAL CONC [Ativan 1 mg PO DAILY PRN 03/24/22 03/24/22 Intensol] Lacosamide [Vimpat] 150 mg PEG/G-TUBE BID@0900,209903/24/22 03/24/22 Uti Stat 30 ml PEG/G-TUBE BID@0900,209903/24/22 03/24/22 Previous Rx's Medication Instructions Recorded Docusate [Colace] 100 mg MISCELLANE BID cap 04/07/22 Ertapenem [INVanz] 1 gm IM DAILY 14 Days #14 each 04/07/22 Nystatin 100,000 Unit/ml Susp 500,000 unit PO QID #0 ml 04/07/22 [Mycostatin Oral Susp] Allergies Allergy/AdvReac Type Severity Reaction Status Date / Time ceftolozane [From Zerbaxa] Allergy Rapid Verified 03/27/22 07:37 Heart Rate meropenem [From Merrem] Allergy Rash/Hives Verified 03/24/22 08:36 tazobactam [From Zerbaxa] Allergy Rapid Verified 03/27/22 07:37 Heart Rate Review of Systems ROS Statement: Those systems with pertinent positive or pertinent negative responses have been documented in the HPI. ROS Other: All systems not noted in ROS Statement are negative. Past Medical History Past Medical History: Deep Vein Thrombosis (DVT), GERD/Reflux, Hypertension, Musculoskeletal Disorder, Neurologic Disorder, Pneumonia, Seizure Disorder, Skin Disorder Additional Past Medical History / Comment(s): Pt diagnosed with MS at the age of 39 yrs, eizure/pneumonia/UTI with sepsis/respirtory failure/vented, cognitive impairment, sister states when he is feeling well he could speak a few words/nod head appropriately/give thumbs up/roll eyes but when ill is nonverbal, pt has dysphagia/NPO with peg tube, contractures, last seizure 07/2020, trigeminal neuralgia, dysarthria/anarthria/neurogenic bladder with IDC-UTIs/sepsis, multiple pneumonias, recent seizure-last one 07/03/20, incontinent of stool, pt has had decubitus ulcer coccyx-sister unsure of skin condition at this time, past anemia r/t heparin/epistaxiis which involved nasal packing/transfusions, DVT bilateral arms, hypoxia, oxygen at 2L/NC, L femoral head fracture History of Any Multi-Drug Resistant Organisms: ESBL, MRSA, Other MDRO Date of last positivie culture/infection: 03/09/21-MRSA; 11/23/19 ESBL-E.coli MDRO Source:: Abdomen-Peg site MRSA; Urine -ESBL Past Surgical History: Tonsillectomy Additional Past Surgical History / Comment(s): Gastrostomy, peg tube, I&D coccyx decubitius, bronchoscopy, bilateral lasik eye surgery. Past Anesthesia/Blood Transfusion Reactions: No Reported Reaction Additional Past Anesthesia/Blood Transfusion Reaction / Comment(s): Pt has received blood in past without reaction. Past Psychological History: Depression Smoking Status: Never smoker Past Alcohol Use History: None Reported Past Drug Use History: None Reported - Past Family History Father Family Medical History: Myocardial Infarction ([place]) Mother Family Medical History: Hypertension, Myocardial Infarction ([place]) Additional Family Medical History / Comment(s): Mother of a [place] at the age of 73 yrs. General Exam - General Exam Comments Initial Comments: GENERAL Patient is well-developed and well-nourished. Patient is in mild distress. EYES Patient's pupils are equal and round. Extraocular motion is intact SKIN Unremarkable ABDOMEN Patient's abdomen was soft PEG tube would not flush. NEURO Patient was awake but not oriented at all and we were told this was his baseline. ALEXUS Unable to assess Limitations: language barrier, altered mental status, physical limitation Course Vital Signs 04/20/22 14:29 Temperature 97.6 F Pulse Rate 82 Respiratory 17 Rate Blood Pressure 172/96 O2 Sat by Pulse 95 Oximetry Medical Decision Making - Medical Decision Making Nursing was able to flush the PEG tube patient be sent back to the skilled nursing. Disposition Clinical Impression: PEG tube malfunction Disposition: HOME SELF-CARE Instructions (If sedation given, give patient instructions): How to Use and Care for Your PEG Tube (ED) Is patient prescribed a controlled substance at d/c from ED?: No Referrals: Nonstaff,Physician [Primary Care Provider] - 1-2 days Time of Disposition: 16:54
[2022-04-20 17:33] VITALS: BP 162/94; PULSE 65; RESP 15
== END 2022-04-20 18:19 | disposition home or self-care (01) ==
LOC: EC 14:11
DX: K94.23 Gastrostomy malfunction (principal); I10 Essential (primary) hypertension; Z88.8 Allergy status to other drugs, medicaments and biological substances; Z79.899 Other long term (current) drug therapy; Z79.82 Long term (current) use of aspirin
CPT/HCPCS: 99282

== ENCOUNTER 2022-05-01 09:33 | Emergency (ER) | payer MEDICARE, OTHER ==
[2022-05-01 09:45] VITALS: TEMP 98.7
--- NOTE | 2022-05-01 10:04 | ED ---
General Adult HPI - General Chief complaint: Shortness of Breath Stated complaint: low oxygen Time Seen by Provider: 05/01/22 09:38 Source: EMS, RN notes reviewed, old records reviewed Mode of arrival: EMS Limitations: language barrier, altered mental status, physical limitation - History of Present Illness Initial comments: 61-year-old male presents from shelter with chest congestion and low oxygen level. According to staff the patient on oxygen level 85%. Patient is bedbound, nonverbal. He receives his feedings through PEG tube. Patient unable to contribute to the history. There's been no reported fever. - Related Data Home Medications Medication Instructions Recorded Confirmed Oxybutynin Chloride [Ditropan Oral 5 mg PEG/G-TUBE TID@0600,1400,2200 09/08/19 05/01/22 Soln] Ipratropium-Albuterol Nebulize 3 ml INHALATION RT-Q6H 12/16/19 05/01/22 [Duoneb 0.5 mg-3 mg/3 ml Soln] Baclofen [Lioresal] 10 mg PEG/G-TUBE TID@0600,1400,2200 07/16/20 05/01/22 Aspirin 81 mg PEG/G-TUBE DAILY@89911/27/20 05/01/22 Cranberry Fruit Extract [Cranberry] 500 mg PEG/G-TUBE DAILY@89911/27/2005/01 Acetaminophen Tab [Tylenol] 650 mg PEG/G-TUBE Q6H PRN MDD 06/13/21 05/01/22 3GM/24HR Metoprolol Tartrate [Lopressor] 25 mg PEG/G-TUBE BID@0900,209906/13/21 05/01/22 Metoprolol Tartrate [Lopressor] 50 mg PEG/G-TUBE BID@0900,209906/13/21 05/01/22 Cholecalciferol [Vitamin D3 (25 25 mcg PEG/G-TUBE DAILY@00 07/02/21 05/01/22 Mcg = 1000 Iu)] carBAMazepine [carBAMazepine Oral 200 mg PEG/G-TUBE BID@0900,209907/02/21 05/01/22 Susp] Amantadine Hcl Solution 50mg/5ml 100 mg PEG/G-TUBE DAILY@0900 12/22/21 05/01/22 guaiFENesin [Mucinex] 600 mg PEG/G-TUBE BID@0900,2100 12/22/21 05/01/22 Lactulose 20 gm PEG/G-TUBE TID@0600,1400,2200 01/03/22 05/01/22 Scopolamine [Scopolamine 1 MG/72 1 patch TRANSDERM Q72H 01/03/22 05/01/22 HR patch] Artificial Tears-Hypromellose 1 drops BOTH EYES Q8H 03/24/22 05/01/22 [Artificial Tear Drops] Famotidine 40mg/5ml Susp 20 mg PEG/G-TUBE HS@209903/24/22 05/01/22 Lacosamide [Vimpat] 150 mg PEG/G-TUBE BID@0900,209903/24/22 05/01/22 Uti Stat 30 ml PEG/G-TUBE BID@0900,209903/24/22 05/01/22 Atorvastatin Calcium [Lipitor] 40 mg PEG/G-TUBE HS@209905/01/22 05/01/22 Docusate [Colace] 100 mg PEG/G-TUBE BID 05/01/22 05/01/22 Magnesium Hydroxide [Milk of 2,400 mg PEG/G-TUBE DAILY PRN 05/01/22 05/01/22 Magnesia] Allergies Allergy/AdvReac Type Severity Reaction Status Date / Time meropenem [From Merrem] Allergy Rash/Hives Verified 05/01/22 09:49 ceftolozane [From Zerbaxa] AdvReac Rapid Verified 05/01/22 09:49 Heart Rate tazobactam [From Zerbaxa] AdvReac Rapid Verified 05/01/22 09:49 Heart Rate Review of Systems ROS Statement: Those systems with pertinent positive or pertinent negative responses have been documented in the HPI. ROS Other: All systems not noted in ROS Statement are negative. Past Medical History Past Medical History: Deep Vein Thrombosis (DVT), GERD/Reflux, Hypertension, Musculoskeletal Disorder, Neurologic Disorder, Pneumonia, Seizure Disorder, Skin Disorder Additional Past Medical History / Comment(s): Pt diagnosed with MS at the age of 39 yrs, seizure/pneumonia/UTI with sepsis/respirtory failure/vented, cognitive impairment, sister states when he is feeling well he could speak a few words/nod head appropriately/give thumbs up/roll eyes but when ill is nonverbal, pt has dysphagia/NPO with peg tube, contractures, last seizure 07/2020, trigeminal neuralgia, dysarthria/anarthria/neurogenic bladder with IDC-UTIs/sepsis, multiple pneumonias, recent seizure-last one 07/03/20, incontinent of stool, pt has had decubitus ulcer coccyx-sister unsure of skin condition at this time, past anemia r/t heparin/epistaxiis which involved nasal packing/transfusions, DVT bilateral arms, hypoxia, oxygen at 2L/NC, L femoral head fracture History of Any Multi-Drug Resistant Organisms: ESBL, MRSA, Other MDRO Date of last positivie culture/infection: 03/09/21-MRSA; 11/23/19 ESBL-E.coli MDRO Source:: Abdomen-Peg site MRSA; Urine -ESBL Past Surgical History: Tonsillectomy Additional Past Surgical History / Comment(s): Gastrostomy, peg tube, I&D coccyx decubitius, bronchoscopy, bilateral lasik eye surgery. Past Anesthesia/Blood Transfusion Reactions: No Reported Reaction Additional Past Anesthesia/Blood Transfusion Reaction / Comment(s): Pt has received blood in past without reaction. Past Psychological History: Depression Smoking Status: Never smoker Past Alcohol Use History: None Reported Past Drug Use History: None Reported - Past Family History Father Family Medical History: Myocardial Infarction ([place]) Mother Family Medical History: Hypertension, Myocardial Infarction ([place]) Additional Family Medical History / Comment(s): Mother of a [place] at the age of 73 yrs. General Exam Limitations: language barrier, altered mental status, physical limitation General appearance: alert, in no apparent distress Head exam: Present: atraumatic, normocephalic Eye exam: Present: normal appearance ENT exam: Present: mucous membranes moist Respiratory exam: Present: rhonchi (Bilateral rhonchi). Absent: respiratory distress Cardiovascular Exam: Present: regular rate, normal rhythm GI/Abdominal exam: Present: soft. Absent: distended Extremities exam: Present: normal capillary refill, other (Contracted) Neurological exam: Present: alert. Absent: oriented X3 Skin exam: Present: warm, dry, intact Course Vital Signs 05/01/22 05/01/22 09:39 11:01 Temperature 98.7 F Pulse Rate 100 105 H Respiratory 18 20 Rate Blood Pressure 146/84 155/90 O2 Sat by Pulse 94 L 95 Oximetry EKG Findings - EKG Comments: EKG Findings:: Test rhythm, rate 99, OH interval 154, QRS duration 88, QTC 391, no ST segment elevation. Medical Decision Making - Medical Decision Making 61-year-old male who had presented with low oxygen saturation. Initial oxygenat ion is 94% on room air. This remained stable while in the emergency department. Chest x-ray is obtained which shows unchanged pulmonary vasculature no new focal pneumonia. His coronavirus testing is negative and influenza testing is negative. Patient has significant rhonchi without respiratory distress. This patient should be closely monitored but he is stable for discharge back to the shelter at this time. - Lab Data Lab Results 05/01/22 05/01/22 Range/Units 09:56 09:56 Coronavirus (PCR) Not Detected (Not Detectd) Influenza Type A RNA Not Detected (Not Detectd) Influenza Type B (PCR) Not Detected (Not Detectd) Disposition Clinical Impression: Cough Disposition: HOME SELF-CARE Condition: Fair Instructions (If sedation given, give patient instructions): Chronic Cough (ED) Is patient prescribed a controlled substance at d/c from ED?: No Referrals: None,Stated [REFERRING] - 1-2 days Time of Disposition: 11:07
--- NOTE | 2022-05-01 10:29 | XR ---
EXAMINATION TYPE: XR chest 1V portable DATE OF EXAM: 05/01/2022 COMPARISON: Chest x-ray March 26, 2022 HISTORY: Cough. TECHNIQUE: Single portable frontal view of the chest is obtained. FINDINGS: There are low lung volumes with increased central markings bilaterally redemonstrated. Th e cardiac silhouette size is stable and upper limits of normal. The osseous structures remain demin eralized. IMPRESSION: Mild to moderate bilateral interstitial edema and/or chronic parenchymal fibrotic change s redemonstrated. No significant change from most recent x-ray. No new infiltrate.
[2022-05-01 12:02] VITALS: BP 152/93; PULSE 115; RESP 20
== END 2022-05-01 12:07 | disposition home or self-care (01) ==
LOC: EC 09:33
DX: R05.9 Cough, unspecified (principal); Z86.718 Personal history of other venous thrombosis and embolism; K21.9 Gastro-esophageal reflux disease without esophagitis; I10 Essential (primary) hypertension; F32.A Depression, unspecified; Z88.1 Allergy status to other antibiotic agents; Z88.0 Allergy status to penicillin; Z79.82 Long term (current) use of aspirin; Z79.899 Other long term (current) drug therapy; Z20.822 Contact with and (suspected) exposure to COVID-19
CPT/HCPCS: 71045; 87502; 87635; 93005; 99285

== ENCOUNTER 2022-05-02 15:57 | Inpatient (IN) | payer MEDICARE, OTHER ==
[2022-05-02] MEDS ORDERED: SODIUM CHLORIDE 0.9% 1,000 ML IV ONE (16:31)
--- NOTE | 2022-05-02 16:51 | XR ---
EXAMINATION TYPE: XR chest 2V DATE OF EXAM: 05/02/2022 COMPARISON: 05/01/2022 HISTORY: Weakness TECHNIQUE: 2 views FINDINGS: There is mild elevation of the right diaphragm. There is some increased interstitial densit y right lower lobe. No heart failure. Heart size is fairly normal. There are chest leads. IMPRESSION: There is some mild atelectasis right lung base similar to yesterday. No heart failure.
--- NOTE | 2022-05-02 16:54 | XR ---
EXAMINATION TYPE: XR KUB DATE OF EXAM: 05/02/2022 COMPARISON: 04/04/2022 HISTORY: Weakness TECHNIQUE: 2 views supine FINDINGS: There is some gas-distended large bowel. The sigmoid colon is more distended. No evidence o f free air. Lung bases are clear of consolidation. There is no pleural effusion. No definite calcific ations over the kidneys. There is old left proximal femur fracture. IMPRESSION: Gas-distended large bowel suggestive of ileus. I do not suspect a sigmoid volvulus. No ad verse change.
--- NOTE | 2022-05-02 17:43 | ED ---
General Adult HPI <[place] - Last Filed: 05/02/22 19:50> - General Source: EMS Mode of arrival: EMS Limitations: altered mental status <Mary Gee - Last Filed: 05/03/22 20:15> - General Chief complaint: Weakness Stated complaint: Weekness Time Seen by Provider: 05/02/22 16:06 - History of Present Illness Initial comments: Patient is a 61-year-old male with a past medical history of hypertension, multiple sclerosis, neurologic disorder, seizure disorder, pneumonia, UTIs with sepsis who presents to the emergency department for evaluation of altered mental status. Patient resides at [facility]. He is bedbound and nonverbal. He receives feedings through a PEG tube. Per [facility] there was difficulty waking up patient today. A sternal rub was performed which patient did not respond to. Patient was sent to the emergency department via EMS. Per EMS patient has been alert and following them with his eyes. Patient was in our emergency department yesterday due to concern for low oxygenation at [facility] Initial oxygen saturation in the emergency department was 94% and remained stable during patient's stay. Chest x-ray was negative for acute process. (Mary Gee) - Related Data Home Medications Medication Instructions Recorded Confirmed Oxybutynin Chloride [Ditropan Oral 5 mg PEG/G-TUBE TID@0600,1400,2200 09/08/19 05/02/22 Soln] Ipratropium-Albuterol Nebulize 3 ml INHALATION RT-Q6H 12/16/19 05/02/22 [Duoneb 0.5 mg-3 mg/3 ml Soln] Aspirin 81 mg PEG/G-TUBE DAILY@0900 11/27/20 05/02/22 Cranberry Fruit Extract [Cranberry] 500 mg PEG/G-TUBE DAILY@0900 11/27/20 05/02/22 Acetaminophen Tab [Tylenol] 650 mg PEG/G-TUBE Q6H PRN MDD 06/13/21 05/02/22 3GM/24HR Metoprolol Tartrate [Lopressor] 25 mg PEG/G-TUBE BID@0900,2100 06/13/21 05/02/22 Metoprolol Tartrate [Lopressor] 50 mg PEG/G-TUBE BID@0900,2100 06/13/21 05/02/22 Cholecalciferol [Vitamin D3 (25 25 mcg PEG/G-TUBE DAILY@0900 07/02/21 05/02/22 Mcg = 1000 Iu)] carBAMazepine [carBAMazepine Oral 200 mg PEG/G-TUBE BID@0900,2100 07/02/21 05/02/22 Susp] Amantadine Hcl Solution 50mg/5ml 100 mg PEG/G-TUBE DAILY@0900 12/22/21 05/02/22 Lactulose 20 gm PEG/G-TUBE TID@0600,1400,2200 01/03/22 05/02/22 Scopolamine [Scopolamine 1 MG/72 1 patch TRANSDERM Q72H 01/03/22 05/02/22 HR patch] Artificial Tears-Hypromellose 1 drops BOTH EYES Q8H 03/24/22 05/02/22 [Artificial Tear Drops] Famotidine 40mg/5ml Susp 20 mg PEG/G-TUBE HS@209903/24/22 05/02/22 Atorvastatin Calcium [Lipitor] 40 mg PEG/G-TUBE HS@209905/01/22 05/02/22 Docusate [Colace] 100 mg PEG/G-TUBE BID 05/01/22 05/02/22 Magnesium Hydroxide [Milk of 2,400 mg PEG/G-TUBE DAILY PRN 05/01/22 05/02/22 Magnesia] Phenylephrine HCl [Sudafed PE] 10 mg PEG/G-TUBE TID 05/02/22 05/02/22 Previous Rx's Medication Instructions Recorded Fluconazole [Diflucan] 150 mg PO Q72H #2 tab 05/02/22 Baclofen [Lioresal] 5 mg PEG/G-TUBE TID@0600,1400,2200 05/03/22 tab Lacosamide [Vimpat] 150 mg PEG/G-TUBE BID@0900,2100 #4 05/03/22 tab Allergies Allergy/AdvReac Type Severity Reaction Status Date / Time meropenem [From Merrem] Allergy Rash/Hives Verified 05/02/22 17:40 ceftolozane [From Zerbaxa] AdvReac Rapid Verified 05/02/22 17:40 Heart Rate tazobactam [From Zerbaxa] AdvReac Rapid Verified 05/02/22 17:40 Heart Rate Review of Systems ROS Other: All systems not noted in ROS Statement are negative. <[place] - Last Filed: 05/02/22 19:50> ROS Other: All systems not noted in ROS Statement are negative. <Mary Gee - Last Filed: 05/03/22 20:15> ROS Statement: Those systems with pertinent positive or pertinent negative responses have been documented in the HPI. Past Medical History Past Medical History: Deep Vein Thrombosis (DVT), GERD/Reflux, Hypertension, Musculoskeletal Disorder, Neurologic Disorder, Pneumonia, Seizure Disorder, Skin Disorder Additional Past Medical History / Comment(s): Pt diagnosed with MS at the age of 39 yrs, seizure/pneumonia/UTI with sepsis/respirtory failure/vented, cognitive impairment, sister states when he is feeling well he could speak a few words/nod head appropriately/give thumbs up/roll eyes but when ill is nonverbal, pt has dysphagia/NPO with peg tube, contractures, last seizure 07/2020, trigeminal neuralgia, dysarthria/anarthria/neurogenic bladder with IDC-UTIs/sepsis, multiple pneumonias, recent seizure-last one 07/03/20, incontinent of stool, pt h as had decubitus ulcer coccyx-sister unsure of skin condition at this time, past anemia r/t heparin/epistaxiis which involved nasal packing/transfusions, DVT bilateral arms, hypoxia, oxygen at 2L/NC, L femoral head fracture History of Any Multi-Drug Resistant Organisms: ESBL, MRSA, Other MDRO Date of last positivie culture/infection: 03/09/21-MRSA; 11/23/19 ESBL-E.coli MDRO Source:: Abdomen-Peg site MRSA; Urine -ESBL Past Surgical History: Tonsillectomy Additional Past Surgical History / Comment(s): Gastrostomy, peg tube, I&D coccyx decubitius, bronchoscopy, bilateral lasik eye surgery. Past Anesthesia/Blood Transfusion Reactions: No Reported Reaction Additional Past Anesthesia/Blood Transfusion Reaction / Comment(s): Pt has received blood in past without reaction. Past Psychological History: Depression Smoking Status: Never smoker Past Alcohol Use History: None Reported Past Drug Use History: None Reported - Past Family History Father Family Medical History: Myocardial Infarction (LA) Mother Family Medical History: Hypertension, Myocardial Infarction (LA) Additional Family Medical History / Comment(s): Mother of a LA at the age of 73 yrs. <MarlenMary - Last Filed: 05/03/22 20:15> General Exam Limitations: language barrier, altered mental status, physical limitation General appearance: alert, in no apparent distress Head exam: Present: atraumatic, normocephalic, normal inspection Eye exam: Present: normal appearance, PERRL, EOMI. Absent: scleral icterus, conjunctival injection, periorbital swelling ENT exam: Present: normal oropharynx Respiratory exam: Present: rhonchi. Absent: normal lung sounds bilaterally, respiratory distress, wheezes, rales, stridor Cardiovascular Exam: Present: regular rate, normal rhythm, normal heart sounds. Absent: systolic murmur, diastolic murmur, rubs, gallop, clicks GI/Abdominal exam: Present: distended, normal bowel sounds, other (peg tube in place without surrounding erythema, swelling, or drainage). Absent: soft, tenderness, guarding, rebound, rigid Extremities exam: Present: normal capillary refill, other (stage 2 pressure ulcer at right heel ) Neurological exam: Present: alert, CN II-XII intact Skin exam: Present: warm, dry, intact, normal color. Absent: rash <MarlenMary - Last Filed: 05/03/22 20:15> Course Vital Signs 05/02/22 05/02/22 05/02/22 16:04 16:09 16:10 Temperature 98.1 F Pulse Rate 75 69 Respiratory 18 18 20 Rate Blood Pressure 130/79 130/79 O2 Sat by Pulse 98 98 Oximetry 05/02/22 05/02/22 17:10 18:00 Temperature Pulse Rate 69 Respiratory 20 20 Rate Blood Pressure 126/84 135/76 O2 Sat by Pulse Oximetry EKG Findings - EKG Comments: EKG Findings:: EKG taken at 17:42. Sinus rhythm, no new ST-T segment or T-wave abnormalities. Ventricular rate 69. GA interval 164. QRS duration 100. QTC 394 <Mary Gee - Last Filed: 05/03/22 20:15> Medical Decision Making - Lab Data Result diagrams: 05/02/22 17:53 05/02/22 17:53 <[place] - Last Filed: 05/02/22 19:50> - Lab Data Result diagrams: 05/02/22 17:53 05/02/22 17:53 <Mary Gee - Last Filed: 05/03/22 20:15> - Medical Decision Making CT abdomen pelvis showed no acute abnormality. I went in and spoke with the sister extensively and she said there were 2 mornings in a row where the long term stated the patient is altered needs a sternal rub to even be slightly aroused and also was hypoxic at the facility but when they get here to the hospital 2 days neuro is been in the high 90s. She is uncomfortable and the patient go home without at least a 24-hour period of time where he is being watched. ([place]) This is a 61-year-old male who presents for evaluation of altered mental status. Thorough history and examination were performed. Patient is well-appearing and in no apparent distress. Awake and alert. Responds to IV poke. Afebrile. Stable blood pressure. His sister is now at bedside and helps provide history. States [facility] arriving to the emergency department. According to sister patient is currently acting as his normal self. Patient has significant rhonchi without respiratory distress. Oxygen saturation is 98% on room air. There is decent distention of the abdomen. Last bowel movement unknown. It is difficult to assess pain with palpation of the abdomen due patient's being nonverbal however he does not appear to have pain. EKG shows sinus rhythm with nonspecific ST and T wave changes which are not new. Ventricular rate at 69. Laboratory studies obtained. Patient has mild leukocytosis at 13.2. Microcytic hypochromic anemia with hemoglobin 11, consistent with previous visits. Troponin is elevated at 0.035 however this is not unusual for patient. Urinalysis does not reveal bacteria however does reveal yeast. Chest x-ray negative for acute process. Patient admitted for observation and serial troponin. Dr. Mills is my attending. (Mary Gee) - Lab Data Lab Results 05/02/22 05/02/22 05/02/22 Range/Units 17:53 17:53 17:53 WBC 13.2 H (3.8-10.6) k/uL RBC 4.83 (4.30-5.90) m/uL Hgb 11.0 L (13.0-17.5) gm/dL Hct 37.1 L (39.0-53.0) % MCV 76.9 L (80.0-100.0) fL MCH 22.7 L (25.0-35.0) pg MCHC 29.5 L (31.0-37.0) g/dL RDW 19.7 H (11.5-15.5) % Plt Count 258 (150-450) k/uL MPV 8.5 Neutrophils % 77 % Lymphocytes % 10 % Monocytes % 7 % Eosinophils % 4 % Basophils % 0 % Neutrophils # 10.2 H (1.3-7.7) k/uL Lymphocytes # 1.4 (1.0-4.8) k/uL Monocytes # 0.9 (0-1.0) k/uL Eosinophils # 0.5 (0-0.7) k/uL Basophils # 0.1 (0-0.2) k/uL Hypochromasia Moderate Anisocytosis Slight Microcytosis Moderate PT 11.2 (9.0-12.0) sec INR 1.0 (<1.2) APTT 26.9 (22.0-30.0) sec Sodium (137-145) mmol/L Potassium (3.5-5.1) mmol/L Chloride (98-107) mmol/L Carbon Dioxide (22-30) mmol/L Anion Gap mmol/L BUN (9-20) mg/dL Creatinine (0.66-1.25) mg/dL Est GFR (CKD-EPI)AfAm (>60 ml/min/1.73 sqM) Est GFR (CKD-EPI)NonAf (>60 ml/min/1.73 sqM) Glucose (74-99) mg/dL POC Glucose (mg/dL) (70-110) mg/dL POC Glu Granite Polisher ID Calcium (8.4-10.2) mg/dL Total Bilirubin (0.2-1.3) mg/dL AST (17-59) U/L ALT (4-49) U/L Alkaline Phosphatase (38-126) U/L Ammonia (<30) umol/L Troponin I (0.000-0.034) ng/mL Total Protein (6.3-8.2) g/dL Albumin (3.5-5.0) g/dL Urine Color Yellow Urine Appearance Clear (Clear) Urine pH 6.5 (5.0-8.0) Ur Specific [place] 1.024 (1.001-1.035) Urine Protein 1+ H (Negative) Urine Glucose (UA) Negative (Negative) Urine Ketones Negative (Negative) Urine Blood Negative (Negative) Urine Nitrite Negative (Negative) Urine Bilirubin Negative (Negative) Urine Urobilinogen <2.0 (<2.0) mg/dL Ur Leukocyte Esterase Negative (Negative) Urine RBC 1 (0-5) /hpf Urine WBC 1 (0-5) /hpf Urine Mucus Rare H (None) /hpf Urine Yeast (Budding) Few H (None) /hpf Urine Opiates Screen (NotDetected) Ur Oxycodone Screen (NotDetected) Urine Methadone Screen (NotDetected) Ur Propoxyphene Screen (NotDetected) Ur Barbiturates Screen (NotDetected) U Tricyclic Antidepress (NotDetected) Ur Phencyclidine Scrn (NotDetected) Ur Amphetamines Screen (NotDetected) U Methamphetamines Scrn (NotDetected) U Benzodiazepines Scrn (NotDetected) Urine Cocaine Screen (NotDetected) U Marijuana (THC) Screen (NotDetected) 05/02/22 05/02/22 05/02/22 Range/Units 17:53 17:53 17:53 WBC (3.8-10.6) k/uL RBC (4.30-5.90) m/uL Hgb (13.0-17.5) gm/dL Hct (39.0-53.0) % MCV (80.0-100.0) fL MCH (25.0-35.0) pg MCHC (31.0-37.0) g/dL RDW (11.5-15.5) % Plt Count (150-450) k/uL MPV Neutrophils % % Lymphocytes % % Monocytes % % Eosinophils % % Basophils % % Neutrophils # (1.3-7.7) k/uL Lymphocytes # (1.0-4.8) k/uL Monocytes # (0-1.0) k/uL Eosinophils # (0-0.7) k/uL Basophils # (0-0.2) k/uL Hypochromasia Anisocytosis Microcytosis PT (9.0-12.0) sec INR (<1.2) APTT (22.0-30.0) sec Sodium 137 (137-145) mmol/L Potassium 4.3 (3.5-5.1) mmol/L Chloride 106 (98-107) mmol/L Carbon Dioxide 24 (22-30) mmol/L Anion Gap 7 mmol/L BUN 24 H (9-20) mg/dL Creatinine 0.79 (0.66-1.25) mg/dL Est GFR (CKD-EPI)AfAm >90 (>60 ml/min/1.73 sqM) Est GFR (CKD-EPI)NonAf >90 (>60 ml/min/1.73 sqM) Glucose 85 (74-99) mg/dL POC Glucose (mg/dL) (70-110) mg/dL POC Glu Granite Polisher ID Calcium 8.8 (8.4-10.2) mg/dL Total Bilirubin 0.2 (0.2-1.3) mg/dL AST 19 (17-59) U/L ALT 16 (4-49) U/L Alkaline Phosphatase 103 (38-126) U/L Ammonia <9 (<30) umol/L Troponin I 0.035 H* (0.000-0.034) ng/mL Total Protein 6.9 (6.3-8.2) g/dL Albumin 3.7 (3.5-5.0) g/dL Urine Color Urine Appearance (Clear) Urine pH (5.0-8.0) Ur Specific [place] (1.001-1.035) Urine Protein (Negative) Urine Glucose (UA) (Negative) Urine Ketones (Negative) Urine Blood (Negative) Urine Nitrite (Negative) Urine Bilirubin (Negative) Urine Urobilinogen (<2.0) mg/dL Ur Leukocyte Esterase (Negative) Urine RBC (0-5) /hpf Urine WBC (0-5) /hpf Urine Mucus (None) /hpf Urine Yeast (Budding) (None) /hpf Urine Opiates Screen (NotDetected) Ur Oxycodone Screen (NotDetected) Urine Methadone Screen (NotDetected) Ur Propoxyphene Screen (NotDetected) Ur Barbiturates Screen (NotDetected) U Tricyclic Antidepress (NotDetected) Ur Phencyclidine Scrn (NotDetected) Ur Amphetamines Screen (NotDetected) U Methamphetamines Scrn (NotDetected) U Benzodiazepines Scrn (NotDetected) Urine Cocaine Screen (NotDetected) U Marijuana (THC) Screen (NotDetected) 05/02/22 05/02/22 Range/Units 17:53 18:11 WBC (3.8-10.6) k/uL RBC (4.30-5.90) m/uL Hgb (13.0-17.5) gm/dL Hct (39.0-53.0) % MCV (80.0-100.0) fL MCH (25.0-35.0) pg MCHC (31.0-37.0) g/dL RDW (11.5-15.5) % Plt Count (150-450) k/uL MPV Neutrophils % % Lymphocytes % % Monocytes % % Eosinophils % % Basophils % % Neutrophils # (1.3-7.7) k/uL Lymphocytes # (1.0-4.8) k/uL Monocytes # (0-1.0) k/uL Eosinophils # (0-0.7) k/uL Basophils # (0-0.2) k/uL Hypochromasia Anisocytosis Microcytosis PT (9.0-12.0) sec INR (<1.2) APTT (22.0-30.0) sec Sodium (137-145) mmol/L Potassium (3.5-5.1) mmol/L Chloride (98-107) mmol/L Carbon Dioxide (22-30) mmol/L Anion Gap mmol/L BUN (9-20) mg/dL Creatinine (0.66-1.25) mg/dL Est GFR (CKD-EPI)AfAm (>60 ml/min/1.73 sqM) Est GFR (CKD-EPI)NonAf (>60 ml/min/1.73 sqM) Glucose (74-99) mg/dL POC Glucose (mg/dL) 86 (70-110) mg/dL POC Glu Granite Polisher ID April Dasilva Calcium (8.4-10.2) mg/dL Total Bilirubin (0.2-1.3) mg/dL AST (17-59) U/L ALT (4-49) U/L Alkaline Phosphatase (38-126) U/L Ammonia (<30) umol/L Troponin I (0.000-0.034) ng/mL Total Protein (6.3-8.2) g/dL Albumin (3.5-5.0) g/dL Urine Color Urine Appearance (Clear) Urine pH (5.0-8.0) Ur Specific [place] (1.001-1.035) Urine Protein (Negative) Urine Glucose (UA) (Negative) Urine Ketones (Negative) Urine Blood (Negative) Urine Nitrite (Negative) Urine Bilirubin (Negative) Urine Urobilinogen (<2.0) mg/dL Ur Leukocyte Esterase (Negative) Urine RBC (0-5) /hpf Urine WBC (0-5) /hpf Urine Mucus (None) /hpf Urine Yeast (Budding) (None) /hpf Urine Opiates Screen Not Detected (NotDetected) Ur Oxycodone Screen Not Detected (NotDetected) Urine Methadone Screen Not Detected (NotDetected) Ur Propoxyphene Screen Not Detected (NotDetected) Ur Barbiturates Screen Not Detected (NotDetected) U Tricyclic Antidepress Not Detected (NotDetected) Ur Phencyclidine Scrn Not Detected (NotDetected) Ur Amphetamines Screen Not Detected (NotDetected) U Methamphetamines Scrn Not Detected (NotDetected) U Benzodiazepines Scrn Not Detected (NotDetected) Urine Cocaine Screen Not Detected (NotDetected) U Marijuana (THC) Screen Not Detected (NotDetected) Disposition Time of Disposition: 19:53 <[place] - Last Filed: 05/02/22 19:50> <Mary Gee - Last Filed: 05/03/22 20:15> Clinical Impression: Altered mental status, Dehydration, Elevated troponin Disposition: ADMITTED IP TO THIS HOSP
[2022-05-02 18:08] LABS: Anisocytosis Slight; Basophils # (A) 0.1 k/uL (0-0.2); Basophils % (A) 0 %; Eosinophils # (A) 0.5 k/uL (0-0.7); Eosinophils % (A) 4 %; HCT 37.1 % (39.0-53.0); Hypochromasia Moderate; Lymphocytes # (A) 1.4 k/uL (1.0-4.8); Lymphocytes % (A) 10 %; MCH 22.7 pg (25.0-35.0); MCHC 29.5 g/dL (31.0-37.0); MCV 76.9 fL (80.0-100.0); Mean Platelet Volume 8.5; Microcytosis Moderate; Monocytes # (A) 0.9 k/uL (0-1.0); Monocytes % (A) 7 %; Neutrophils # (A) 10.2 k/uL (1.3-7.7); Neutrophils % (A) 77 %; Platelet Count 258 k/uL (150-450); RBC 4.83 m/uL (4.30-5.90); RDW 19.7 % (11.5-15.5); WBC 13.2 k/uL (3.8-10.6)
[2022-05-02 18:13] LABS: Glucose,Whole Blood 86 mg/dL (70-110)
[2022-05-02 18:16] LABS: Appearance,Urine Clear (Clear); Bilirubin,Urine Negative (Negative); Blood,Urine Negative (Negative); Budding Yeast,Urine Few /hpf; Color,Urine Yellow; Glucose,Urine (UA) Negative (Negative); Ketones,Urine Negative (Negative); Leukocyte Esterase,Urine Negative (Negative); Mucus,Urine Rare /hpf; Nitrite,Urine Negative (Negative); PH, Urine 6.5 (5.0-8.0); Protein,Urine 1+ (Negative); RBC,Urine 1 /hpf (0-5); Specific Gravity,Urine 1.024 (1.001-1.035); Urobilinogen,Urine <2.0 mg/dL (<2.0); WBC,Urine 1 /hpf (0-5)
[2022-05-02 18:18] LABS: ALT 16 U/L (4-49); AST 19 U/L (17-59); African American GFR (CKD) >90 (>60 ml/min/1.73 sqM); Albumin 3.7 g/dL (3.5-5.0); Alkaline Phosphatase 103 U/L (38-126); Anion Gap 7 mmol/L; Blood Urea Nitrogen 24 mg/dL (9-20); Calcium 8.8 mg/dL (8.4-10.2); Carbon Dioxide 24 mmol/L (22-30); Chloride 106 mmol/L (98-107); Glucose 85 mg/dL (74-99); Non-African American GFR(CKD) >90 (>60 ml/min/1.73 sqM); Potassium 4.3 mmol/L (3.5-5.1); Sodium 137 mmol/L (137-145); Total Bilirubin 0.2 mg/dL (0.2-1.3); Total Protein 6.9 g/dL (6.3-8.2)
[2022-05-02 18:22] LABS: Amphetamine Screen,Urine Not Detected (NotDetected); Barbiturate Screen,Urine Not Detected (NotDetected); Benzodiazepines Screen,Urine Not Detected (NotDetected); Cocaine Screen,Urine Not Detected (NotDetected); Methadone Screen, Urine Not Detected (NotDetected); Opiate Screen,Urine Not Detected (NotDetected); Oxycodone Screen, Urine Not Detected (NotDetected); Phencyclidine Screen,Urine Not Detected (NotDetected); Tricyclic Antidepressant,Urine Not Detected (NotDetected); Urn Cannabinoid Scrn Not Detected (NotDetected)
[2022-05-02 18:30] LABS: Partial Thromboplastin Time 26.9 sec (22.0-30.0); Prothrombin Time 11.2 sec (9.0-12.0)
--- NOTE | 2022-05-02 19:31 | CT ---
EXAMINATION TYPE: CT abdomen pelvis w con DATE OF EXAM: 05/02/2022 COMPARISON: 03/29/2022 HISTORY: possible ileus CT DLP: 1810.7 mGycm Automated exposure control for dose reduction was used. CONTRAST: Performed with IV Contrast, patient injected with 100 mL of Isovue 370. Images obtained from the diaphragm to the floor the pelvis with the IV contrast. There is some patchy atelectasis at the lung bases. Heart size is fairly normal. No pericardial effus ion. No pleural effusion. Liver and spleen are intact. There is no pancreatic mass. Stomach is intact . The bile ducts are not dilated. Gallbladder appears normal. There is no adrenal mass. Kidneys show satisfactory contrast opacification. There is no hydronephrosi s. There is some cortical thinning in the left kidney. No evidence of a renal mass. No retroperitonea l adenopathy. Ureters are not dilated. Delayed images show normal renal excretion. There is old ununited left femoral neck fracture. Bony pelvis is intact. The lumbar spine is intact. No compression fracture. There is no mesenteric edema. No ascites or free air. No sign of a bowel obstruction. Appendix not se en. No site of thickened appendix. There is no evidence for intestinal ileus. No intestinal wall thic kening. IMPRESSION: No acute abnormality in the abdomen and pelvis. There is some mild infiltrate and atelectasis at the lung bases. Lung abnormalities are improved slightly compared to old exam. There is left renal atrophy without change.
[2022-05-02] MEDS ORDERED: NITROGLYCERIN SL TABS 0.4 MG TAB SUBLINGUAL PRN (19:56)
[2022-05-02] MEDS ORDERED: ATORVASTATIN 40 MG TAB PEG/G-TUBE SCH (21:30)
[2022-05-02] MEDS ORDERED: FAMOTIDINE 8 MG/ML ORAL.SUSP PEG/G-TUBE SCH (21:30)
[2022-05-02] MEDS: LACOSAMIDE 150 MG TABLET PEG/G-TUBE SCH (21:54)
[2022-05-02] MEDS: carBAMazepine 200 MG TAB PEG/G-TUBE SCH (21:54)
[2022-05-02] MEDS: METOPROLOL TARTRATE 25 MG TAB PEG/G-TUBE SCH (21:55)
[2022-05-02] MEDS: ARTIFICIAL TEARS-HYPROMELLOSE DROPS 15 ML BTL BOTH EYES SCH (21:56)
[2022-05-02] MEDS: BACLOFEN 10 MG TAB PEG/G-TUBE SCH (21:56)
[2022-05-02] MEDS: OXYBUTYNIN CHLORIDE 5 MG TAB PEG/G-TUBE SCH (21:56)
[2022-05-02] MEDS: METOPROLOL TARTRATE 50 MG TAB PEG/G-TUBE SCH (21:56)
[2022-05-02] MEDS: LACTULOSE 20 GM/30 ML CUP PEG/G-TUBE SCH (21:56)
[2022-05-02] MEDS: NITROGLYCERIN OINT 1 INCH/GM PACKET TOPICAL SCH (23:18)
[2022-05-03] MEDS: IPRATROPIUM-ALBUTEROL 3 ML NEB INHALATION SCH ×3 (01:53→12:17)
[2022-05-03] MEDS: ARTIFICIAL TEARS-HYPROMELLOSE DROPS 15 ML BTL BOTH EYES SCH (05:55)
[2022-05-03] MEDS: LACTULOSE 20 GM/30 ML CUP PEG/G-TUBE SCH (05:55)
[2022-05-03] MEDS: OXYBUTYNIN CHLORIDE 5 MG TAB PEG/G-TUBE SCH (05:55)
[2022-05-03] MEDS: BACLOFEN 10 MG TAB PEG/G-TUBE SCH (05:55)
[2022-05-03] MEDS: NITROGLYCERIN OINT 1 INCH/GM PACKET TOPICAL SCH (05:56)
[2022-05-03] MEDS ORDERED: CHOLECALCIFEROL 25 MCG (1000 IU) TABLET PEG/G-TUBE SCH (09:00)
[2022-05-03] MEDS ORDERED: DOCUSATE ORAL SOLN 100 MG/10 ML CUP PEG/G-TUBE SCH (09:00)
[2022-05-03] MEDS ORDERED: ASPIRIN 325 MG TAB PO SCH (09:00)
[2022-05-03] MEDS ORDERED: MAGNESIUM HYDROXIDE 2,400 MG/10 ML CUP PEG/G-TUBE PRN (09:00)
--- NOTE | 2022-05-03 09:57 | P.CRDCN ---
History of Present Illness History of present illness: This is a 61-year-old male with a past medical history significant for DVT, hypertension, multiple sclerosis, seizure disorder, pneumonia, UTI, dysphagia with PEG tube, neurogenic bladder with chronic aggarwal catheter. Patient does not follow with a peanut blancher. We have been asked to see the patient in consultation for abnormal troponins. Patient examined at the bedside. Patient admitted to the hospital from [facility] secondary to altered mental status, hypoxia medical [place] was oxygen saturations of 85%. The patient is nonverbal and history is limited. Patient is seen and examined at bedside, no apparent distress. He is awake and alert. His vital signs are stable. His oxygen saturations are currently 93% on room air. * EKG reveals sinus mechanism with no signs of acute ischemia * Chest xray mild atelectasis right lung base, no changes. No heart failure. Normal heart. * Laboratory data: Troponin 0.03, 0.03, 0.04, WBC 13.2, hemoglobin 11, platelets 258, sodium 137, potassium 4.3, BUN 24, serum 0.7 * Current home cardiac medications include aspirin 81 mg daily, atorvastatin 40 mg nightly, metoprolol tartrate 75 mg twice a day * Most recent echocardiogram obtained in May 2021 revealed ejection fraction 55-60%, trace to mild MR, trace TR * Cardiac catheterization history: Unknown REVIEW OF SYSTEMS: At the time of my exam: Unable to obtain thorough review of systems secondary to altered mental status PHYSICAL EXAM: VITAL SIGNS: Reviewed. GENERAL: Well-developed in no acute distress. HEENT: Head is normocephalic. Pupils are equal, round. Sclerae anicteric. Mucous membranes of the mouth are moist. Neck supple. No JVD LUNGS: Respirations even and unlabored. Lungs with diffuse rhonchi HEART: Regular rate and rhythm. S1 and S2 heard. ABDOMEN: Soft. Nondistended. Nontender. EXTREMITIES: Normal range of motion. No clubbing or cyanosis. Peripheral pulses intact. No lower extremity edema NEUROLOGIC: Awake. Nonverbal. ASSESSMENT: Chronic myocardial injury with no evidence of acute ischemia by EKG, and no wall motion abnormalities on Echo in the past Constipation Multiple sclerosis Seizure disorder Dysphagia with PEG tube Neurogenic bladder with chronic Aggarwal catheter History of pneumonia History of DVT History of hypertension PLAN: Patient with chronic with no evidence of acute ischemia on exam or by EKG Recommend medical treatment at this time, patient is not an interventional candidate, Continue Aspirin, Statin, Beta hali Further management per internal medicine We will sign off. Please reconsult if needed. Nurse practitioner note has been reviewed by physician. Signing provider agrees with the documented findings, assessment, and plan of care. Past Medical History Past Medical History: Deep Vein Thrombosis (DVT), GERD/Reflux, Hypertension, Musculoskeletal Disorder, Neurologic Disorder, Pneumonia, Seizure Disorder, Skin Disorder Additional Past Medical History / Comment(s): Pt diagnosed with MS at the age of 39 yrs, seizure/pneumonia/UTI with sepsis/respirtory failure/vented, cognitive impairment, sister states when he is feeling well he could speak a few words/nod head appropriately/give thumbs up/roll eyes but when ill is nonverbal, pt has dysphagia/NPO with peg tube, contractures, last seizure 07/2020, trigeminal neuralgia, dysarthria/anarthria/neurogenic bladder with IDC-UTIs/sepsis, multiple pneumonias, recent seizure-last one 07/03/20, incontinent of stool, pt has had decubitus ulcer coccyx-sister unsure of skin condition at this time, past anemia r/t heparin/epistaxiis which involved nasal packing/transfusions, DVT bilateral arms, hypoxia, oxygen at 2L/NC, L femoral head fracture History of Any Multi-Drug Resistant Organisms: ESBL, MRSA, Other MDRO Date of last positivie culture/infection: 03/09/21-MRSA; 11/23/19 ESBL-E.coli MDRO Source:: Abdomen-Peg site MRSA; Urine -ESBL Past Surgical History: Tonsillectomy Additional Past Surgical History / Comment(s): Gastrostomy, peg tube, I&D coccyx decubitius, bronchoscopy, bilateral lasik eye surgery. Past Anesthesia/Blood Transfusion Reactions: No Reported Reaction Additional Past Anesthesia/Blood Transfusion Reaction / Comment(s): Pt has received blood in past without reaction. Past Psychological History: Depression Additional Psychological History / Comment(s): Pt resides at [facility]. He normally is in bed/amita lift to wheelchair. Has peg/IDC Smoking Status: Never smoker Past Alcohol Use History: None Reported Past Drug Use History: None Reported - Past Family History Father Family Medical History: Myocardial Infarction ([place]) Mother Family Medical History: Hypertension, Myocardial Infarction (IA) Additional Family Medical History / Comment(s): Mother of a IA at the age of 73 yrs. Medications and Allergies Home Medications Medication Instructions Recorded Confirmed Type Oxybutynin Chloride [Ditropan Oral 5 mg PEG/G-TUBE TID@0600,1400,2200 09/08/19 05/02/22 History Soln] Ipratropium-Albuterol Nebulize 3 ml INHALATION RT-Q6H 12/16/19 05/02/22 History [Duoneb 0.5 mg-3 mg/3 ml Soln] Baclofen [Lioresal] 10 mg PEG/G-TUBE TID@0600,1400,2200 07/16/20 05/02/22 History Aspirin 81 mg PEG/G-TUBE DAILY@0900 11/27/20 05/02/22 History Cranberry Fruit Extract [Cranberry] 500 mg PEG/G-TUBE DAILY@0900 11/27/20 05/02/22 History Acetaminophen Tab [Tylenol] 650 mg PEG/G-TUBE Q6H PRN MDD 06/13/21 05/02/22 History 3GM/24HR Metoprolol Tartrate [Lopressor] 25 mg PEG/G-TUBE BID@0900,209906/13/21 05/02/22 History Metoprolol Tartrate [Lopressor] 50 mg PEG/G-TUBE BID@0900,2100 06/13/21 05/02/22 History Cholecalciferol [Vitamin D3 (25 25 mcg PEG/G-TUBE DAILY@0900 07/02/21 05/02/22 History Mcg = 1000 Iu)] carBAMazepine [carBAMazepine Oral 200 mg PEG/G-TUBE BID@0900,2100 07/02/21 05/02/22 History Susp] Amantadine Hcl Solution 50mg/5ml 100 mg PEG/G-TUBE DAILY@0900 12/22/21 05/02/22 History Lactulose 20 gm PEG/G-TUBE TID@0600,1400,2200 01/03/22 05/02/22 History Scopolamine [Scopolamine 1 MG/72 1 patch TRANSDERM Q72H 01/03/22 05/02/22 History HR patch] Artificial Tears-Hypromellose 1 drops BOTH EYES Q8H 03/24/22 05/02/22 History [Artificial Tear Drops] Famotidine 40mg/5ml Susp 20 mg PEG/G-TUBE HS@209903/24/22 05/02/22 History Lacosamide [Vimpat] 150 mg PEG/G-TUBE BID@0900,2100 03/24/22 05/02/22 History Atorvastatin Calcium [Lipitor] 40 mg PEG/G-TUBE HS@209905/01/22 05/02/22 History Docusate [Colace] 100 mg PEG/G-TUBE BID 05/01/22 05/02/22 History Magnesium Hydroxide [Milk of 2,400 mg PEG/G-TUBE DAILY PRN 05/01/22 05/02/22 History Magnesia] Fluconazole [Diflucan] 150 mg PO Q72H #2 tab 05/02/22 Rx Phenylephrine HCl [Sudafed PE] 10 mg PEG/G-TUBE TID 05/02/22 05/02/22 History Allergies Allergy/AdvReac Type Severity Reaction Status Date / Time meropenem [From Merrem] Allergy Rash/Hives Verified 05/02/22 17:40 ceftolozane [From Zerbaxa] AdvReac Rapid Verified 05/02/22 17:40 Heart Rate tazobactam [From Zerbaxa] AdvReac Rapid Verified 05/02/22 17:40 Heart Rate Physical Exam Vitals: Vital Signs Temp Pulse Pulse Resp BP BP Pulse Ox 05/03/22 07:38 71 93 L 05/03/22 04:00 98.1 F 62 18 125/77 96 05/03/22 02:01 62 05/03/22 01:53 60 05/02/22 23:10 98.2 F 63 18 126/81 98 05/02/22 21:00 98.2 F 72 18 139/77 98 05/02/22 18:00 69 20 135/76 05/02/22 17:10 20 126/84 05/02/22 16:10 69 20 130/79 98 05/02/22 16:09 18 05/02/22 16:04 98.1 F 75 18 130/79 98 Intake and Output 05/02/22 05/03/22 05/03/22 22:59 06:59 14:59 Output Total 800 Balance -800 Output: Urine 800 Other: Voiding Method Indwelling Catheter Indwelling Catheter Weight 85.548 kg Results 05/02/22 17:53 05/02/22 17:53 Cardiac Enzymes 05/02/22 05/02/22 05/02/22 Range/Units 17:53 17:53 20:21 AST 19 (17-59) U/L Troponin I 0.035 H* 0.039 H* (0.000-0.034) ng/mL 05/02/22 Range/Units 23:08 AST (17-59) U/L Troponin I 0.047 H* (0.000-0.034) ng/mL Coagulation 05/02/22 Range/Units 17:53 PT 11.2 (9.0-12.0) sec APTT 26.9 (22.0-30.0) sec CBC 05/02/22 Range/Units 17:53 WBC 13.2 H (3.8-10.6) k/uL RBC 4.83 (4.30-5.90) m/uL Hgb 11.0 L (13.0-17.5) gm/dL Hct 37.1 L (39.0-53.0) % Plt Count 258 (150-450) k/uL Comprehensive Metabolic Panel 05/02/22 Range/Units 17:53 Sodium 137 (137-145) mmol/L Potassium 4.3 (3.5-5.1) mmol/L Chloride 106 (98-107) mmol/L Carbon Dioxide 24 (22-30) mmol/L BUN 24 H (9-20) mg/dL Creatinine 0.79 (0.66-1.25) mg/dL Glucose 85 (74-99) mg/dL Calcium 8.8 (8.4-10.2) mg/dL AST 19 (17-59) U/L ALT 16 (4-49) U/L Alkaline Phosphatase 103 (38-126) U/L Total Protein 6.9 (6.3-8.2) g/dL Albumin 3.7 (3.5-5.0) g/dL Current Medications Generic Name Dose Route Start Last Admin Trade Name Freq PRN Reason Stop Dose Admin Albuterol/Ipratropium 3 ml 05/03/22 02:00 05/03/22 07:38 Ipratropium-Albuterol 3 Ml Neb INHALATION 3 ml RT-Q6H [facility]PE Administration Amantadine HCl 100 mg 05/03/22 09:00 Amantadine Hcl 100 Mg/10 Ml Cup PEG/G-TUBE DAILY@0900 [facility]PE Artificial Tears 1 drops 05/02/22 22:00 05/03/22 05:55 Artificial Tears-Hypromellose Drops 15 Ml Btl BOTH EYES 1 drops Q8H LUPE Administration Aspirin 325 mg 05/03/22 09:00 Aspirin 325 Mg Tab PO DAILY LUPE Atorvastatin Calcium 40 mg 05/02/22 21:30 05/02/22 21:54 Atorvastatin 40 Mg Tab PEG/G-TUBE 40 mg HS@2100 [facility]PE Administration Baclofen 10 mg 05/02/22 22:00 05/03/22 05:55 Baclofen 10 Mg Tab PEG/G-TUBE 10 mg TID@0600,1400,2200 [facility] Administration Carbamazepine 200 mg 05/02/22 21:30 05/02/22 21:54 Carbamazepine 200 Mg Tab PEG/G-TUBE 200 mg BID@0900,2100 [facility] Administration Cholecalciferol 25 mcg 05/03/22 09:00 Cholecalciferol 25 Mcg (1000 Iu) Tablet PEG/G-TUBE DAILY@0900 [facility] Docusate Sodium 100 mg 05/03/22 09:00 Docusate Oral Soln 100 Mg/10 Ml Cup PEG/G-TUBE BID [facility] Famotidine 20 mg 05/02/22 21:30 05/02/22 21:54 Famotidine 8 Mg/Ml Oral.Susp PEG/G-TUBE 20 mg HS@2100 [facility] Administration Lacosamide 150 mg 05/02/22 21:30 05/02/22 21:54 Lacosamide 150 Mg Tablet PEG/G-TUBE 150 mg BID@0900,2100 [facility] Administration Lactulose 20 gm 05/02/22 22:00 05/03/22 05:55 Lactulose 20 Gm/30 Ml Cup PEG/G-TUBE 20 gm TID@0600,1400,2200 [facility] Administration Magnesium Hydroxide 2,400 mg 05/03/22 09:00 Magnesium Hydroxide 2,400 Mg/10 Ml Cup PEG/G-TUBE DAILY PRN Constipation Metoprolol Tartrate 25 mg 05/02/22 21:30 05/02/22 21:55 Metoprolol Tartrate 25 Mg Tab PEG/G-TUBE 25 mg BID@0900,2100 [facility] Administration Metoprolol Tartrate 50 mg 05/02/22 21:30 05/02/22 21:56 Metoprolol Tartrate 50 Mg Tab PEG/G-TUBE 50 mg BID@0900,2100 [facility] Administration Nitroglycerin 0.4 mg 05/02/22 19:56 Nitroglycerin Sl Tabs 0.4 Mg Tab SUBLINGUAL Q5M PRN Chest Pain Nitroglycerin 1 inch 05/03/22 00:00 05/03/22 05:56 Nitroglycerin Oint 1 Inch/Gm Packet TOPICAL Not Given Q6HR [facility] Oxybutynin Chloride 5 mg 05/02/22 22:00 05/03/22 05:55 Oxybutynin Chloride 5 Mg Tab PEG/G-TUBE 5 mg TID@0600,1400,2200 [facility] Administration Intake and Output 05/02/22 05/03/22 05/03/22 22:59 06:59 14:59 Output Total 800 Balance -800 Output: Urine 800 Other: Voiding Method Indwelling Catheter Indwelling Catheter Weight 85.548 kg 05/02/22 17:53 05/02/22 17:53
[2022-05-03] MEDS: carBAMazepine 200 MG TAB PEG/G-TUBE SCH (10:05)
[2022-05-03] MEDS: LACOSAMIDE 150 MG TABLET PEG/G-TUBE SCH (10:05)
--- NOTE | 2022-05-03 10:05 | P.HPIM ---
History of Present Illness 61-year-old male with history of multiple sclerosis seizure disorder mostly bedbound in a [facility] with chronic contractures was sent in here as patient was not arousable with sternal rub. Patient at baseline is nonverbal. Patient evidently was also hypoxic. Patient is not hypoxic here he is saturating at 97% on arrival to ER he was saturating at 94%. Patient chest x-ray did not show any significant abnormality except for mild atelectasis of the computed tomography scan of the abdomen. Patient doesn't have any fevers does have leukocytosis urine is abnormal for [place] for which the flucanazole prescription was provided from ER. Patient appears to be at his baseline. Patient is on multiple medications that can cause decreased consciousness or heart to a arousals which include carbamazepine,, oxybutynin, baclofen, scopolamine. Patient has a lot of secretions and we need scopolamine as well as cyclobenzaprine but will cut down the dose of cyclobenzaprine and patient to be monitored as an outpatient with a lower dose. Patient has mildly elevated troponins. Patient's EKG showed some nonspecific ST-T wave changes which were not new. REVIEW OF SYSTEMS: Unable to obtain due to his clinical condition PHYSICAL EXAMINATION: GENERAL: Patient at baseline nonverbal sleeping bedbound with chronic contractur es HEENT: Pupils are round and equally reacting to light. EOMI. No scleral icterus. No conjunctival pallor. Normocephalic, atraumatic. No pharyngeal erythema. No thyromegaly. CARDIOVASCULAR: S1 and S2 present. No murmurs, rubs, or gallops. PULMONARY: Crackles in the in bilateral lower lung bases ABDOMEN: Soft, nontender, nondistended, normoactive bowel sounds. No palpable organomegaly. MUSCULOSKELETAL: No joint swelling or deformity. EXTREMITIES: No cyanosis, clubbing, or pedal edema. NEUROLOGICAL: Unable to assess SKIN: No rashes. Assessment and plan -Altered mental status/decreased arousability: Probably secondary to his medications I'll cut down the dose of cyclobenzaprine and patient will be monitored as an outpatient on a lower dose of cyclobenzaprine. Patient has significant secretions which need frequent suctioning because of which I'm not discontinuing scopolamine patch which may have contributed to his symptoms other medications including seizure medications which cannot be discontinued at this time may be contributing to his altered mental status. Patient at baseline is very poor prognosis bedbound extremely poor functionality. Nothing much else can be offered as an inpatient and patient will be discharged to [facility]. -Leukocytosis reactive without any evidence of infection at this time except for mildly increased in urine for which patient was given prescription for flucanazole for 2 days. -Crackles in bilateral lower lung bases secondary to atelectasis -History of DVT in the past, not on any anticoagulation at this time. -hypertension -Seizure disorder -Multiple sclerosis bedbound with chronic contractures extremity poor functionality patient has a PEG tube and patient will be resumed on tube feedings DVT prophylaxis: Past Medical History Past Medical History: Deep Vein Thrombosis (DVT), GERD/Reflux, Hypertension, Musculoskeletal Disorder, Neurologic Disorder, Pneumonia, Seizure Disorder, Skin Disorder Additional Past Medical History / Comment(s): Pt diagnosed with MS at the age of 39 yrs, seizure/pneumonia/UTI with sepsis/respirtory failure/vented, cognitive impairment, sister states when he is feeling well he could speak a few words/nod head appropriately/give thumbs up/roll eyes but when ill is nonverbal, pt has dysphagia/NPO with peg tube, contractures, last seizure 07/2020, trigeminal neuralgia, dysarthria/anarthria/neurogenic bladder with IDC-UTIs/sepsis, mu ltiple pneumonias, recent seizure-last one 07/03/20, incontinent of stool, pt has had decubitus ulcer coccyx-sister unsure of skin condition at this time, past anemia r/t heparin/epistaxiis which involved nasal packing/transfusions, DVT bilateral arms, hypoxia, oxygen at 2L/NC, L femoral head fracture History of Any Multi-Drug Resistant Organisms: ESBL, MRSA, Other MDRO Date of last positivie culture/infection: 03/09/21-MRSA; 11/23/19 ESBL-E.coli MDRO Source:: Abdomen-Peg site MRSA; Urine -ESBL Past Surgical History: Tonsillectomy Additional Past Surgical History / Comment(s): Gastrostomy, peg tube, I&D coccyx decubitius, bronchoscopy, bilateral lasik eye surgery. Past Anesthesia/Blood Transfusion Reactions: No Reported Reaction Additional Past Anesthesia/Blood Transfusion Reaction / Comment(s): Pt has received blood in past without reaction. Past Psychological History: Depression Additional Psychological History / Comment(s): Pt resides at [facility]. He normally is in bed/amita lift to wheelchair. Has peg/IDC Smoking Status: Never smoker Past Alcohol Use History: None Reported Past Drug Use History: None Reported - Past Family History Father Family Medical History: Myocardial Infarction ([place]) Mother Family Medical History: Hypertension, Myocardial Infarction (ND) Additional Family Medical History / Comment(s): Mother of a ND at the age of 73 yrs. Medications and Allergies Home Medications Medication Instructions Recorded Confirmed Type Oxybutynin Chloride [Ditropan Oral 5 mg PEG/G-TUBE TID@0600,1400,2200 09/08/19 05/02/22 History Soln] Ipratropium-Albuterol Nebulize 3 ml INHALATION RT-Q6H 12/16/19 05/02/22 History [Duoneb 0.5 mg-3 mg/3 ml Soln] Aspirin 81 mg PEG/G-TUBE DAILY@89911/27/20 05/02/22 History Cranberry Fruit Extract [Cranberry] 500 mg PEG/G-TUBE DAILY@89911/27/20 05/02/22 History Acetaminophen Tab [Tylenol] 650 mg PEG/G-TUBE Q6H PRN MDD 06/13/21 05/02/22 Hi story 3GM/24HR Metoprolol Tartrate [Lopressor] 25 mg PEG/G-TUBE BID@0900,209906/13/21 05/02/22 History Metoprolol Tartrate [Lopressor] 50 mg PEG/G-TUBE BID@0900,209906/13/21 05/02/22 History Cholecalciferol [Vitamin D3 (25 25 mcg PEG/G-TUBE DAILY@0900 07/02/21 05/02/22 History Mcg = 1000 Iu)] carBAMazepine [carBAMazepine Oral 200 mg PEG/G-TUBE BID@0900,209907/02/21 05/02/22 History Susp] Amantadine Hcl Solution 50mg/5ml 100 mg PEG/G-TUBE DAILY@0900 12/22/21 05/02/22 History Lactulose 20 gm PEG/G-TUBE TID@0600,1400,2200 01/03/22 05/02/22 History Scopolamine [Scopolamine 1 MG/72 1 patch TRANSDERM Q72H 01/03/22 05/02/22 History HR patch] Artificial Tears-Hypromellose 1 drops BOTH EYES Q8H 03/24/22 05/02/22 History [Artificial Tear Drops] Famotidine 40mg/5ml Susp 20 mg PEG/G-TUBE HS@209903/24/22 05/02/22 History Lacosamide [Vimpat] 150 mg PEG/G-TUBE BID@0900,2100 03/24/22 05/02/22 History Atorvastatin Calcium [Lipitor] 40 mg PEG/G-TUBE HS@2100 05/01/22 05/02/22 History Docusate [Colace] 100 mg PEG/G-TUBE BID 05/01/22 05/02/22 History Magnesium Hydroxide [Milk of 2,400 mg PEG/G-TUBE DAILY PRN 05/01/22 05/02/22 History Magnesia] Fluconazole [Diflucan] 150 mg PO Q72H #2 tab 05/02/22 Rx Phenylephrine HCl [Sudafed PE] 10 mg PEG/G-TUBE TID 05/02/22 05/02/22 History Baclofen [Lioresal] 5 mg PEG/G-TUBE TID@0600,1400,2200 05/03/22 Rx tab Allergies Allergy/AdvReac Type Severity Reaction Status Date / Time meropenem [From Merrem] Allergy Rash/Hives Verified 05/02/22 17:40 ceftolozane [From Zerbaxa] AdvReac Rapid Verified 05/02/22 17:40 Heart Rate tazobactam [From Zerbaxa] AdvReac Rapid Verified 05/02/22 17:40 Heart Rate Physical Exam Vitals: Vital Signs Temp Pulse Pulse Resp BP BP Pulse Ox 05/03/22 07:47 74 05/03/22 07:38 71 93 L 05/03/22 04:00 98.1 F 62 18 125/77 96 05/03/22 02:01 62 05/03/22 01:53 60 05/02/22 23:10 98.2 F 63 18 126/81 98 05/02/22 21:00 98.2 F 72 18 139/77 98 05/02/22 18:00 69 20 135/76 05/02/22 17:10 20 126/84 05/02/22 16:10 69 20 130/79 98 05/02/22 16:09 18 05/02/22 16:04 98.1 F 75 18 130/79 98 Intake and Output 05/02/22 05/03/22 05/03/22 22:59 06:59 14:59 Output Total 800 Balance -800 Output: Urine 800 Other: Voiding Method Indwelling Catheter Indwelling Catheter Weight 85.548 kg Results CBC & Chem 7: 05/02/22 17:53 05/02/22 17:53 Labs: Abnormal Lab Results - Last 24 Hours (Table) 05/02/22 05/02/22 05/02/22 Range/Units 17:53 17:53 17:53 WBC 13.2 H (3.8-10.6) k/uL Hgb 11.0 L (13.0-17.5) gm/dL Hct 37.1 L (39.0-53.0) % MCV 76.9 L (80.0-100.0) fL MCH 22.7 L (25.0-35.0) pg MCHC 29.5 L (31.0-37.0) g/dL RDW 19.7 H (11.5-15.5) % Neutrophils # 10.2 H (1.3-7.7) k/uL BUN 24 H (9-20) mg/dL Troponin I (0.000-0.034) ng/mL Urine Protein 1+ H (Negative) Urine Mucus Rare H (None) /hpf Urine Yeast (Budding) Few H (None) /hpf 05/02/22 05/02/22 05/02/22 Range/Units 17:53 20:21 23:08 WBC (3.8-10.6) k/uL Hgb (13.0-17.5) gm/dL Hct (39.0-53.0) % MCV (80.0-100.0) fL MCH (25.0-35.0) pg MCHC (31.0-37.0) g/dL RDW (11.5-15.5) % Neutrophils # (1.3-7.7) k/uL BUN (9-20) mg/dL Troponin I 0.035 H* 0.039 H* 0.047 H* (0.000-0.034) ng/mL Urine Protein (Negative) Urine Mucus (None) /hpf Urine Yeast (Budding) (None) /hpf Thrombosis Risk Factor Assmnt - Choose All That Apply Each Factor Represents 1 point: Medical pt on bed rest, Obesity (BMI >25) Other Risk Factors: Yes Each Risk Factor Represents 2 Points: Age 61-74 years, Patient confined to bed Each Risk Factor Represents 3 Points: History of DVT/PE Other congenital or acquired thrombophilia - If yes, enter type in comment: No Thrombosis Risk Factor Assessment Total Risk Factor Score: 9 Thrombosis Risk Factor Assessment Level: High Risk
--- NOTE | 2022-05-03 10:05 | P.DS ---
Providers Date of admission: 05/02/22 19:56 Attending physician: Dara Crowe Consults: 05/02/22 19:56 Consult Physician Urgent Consulting Provider: [facility] Consult Reason/Comments: Elevated troponin Do you want consulting provider notified?: Yes Primary care physician: Matteo Hernandez [facility] Course: Please refer to my history of present illness for further details. Patient has mildly elevated troponins not consistent with acute microinfarction swelling mild elevation. Plan - Discharge Summary New Discharge Prescriptions: New Fluconazole [Diflucan] 150 mg PO Q72H #2 tab Baclofen [Lioresal] 5 mg PEG/G-TUBE TID@0600,1400,0 tab Continue Oxybutynin Chloride [Ditropan Oral Soln] 5 mg PEG/G-TUBE TID@0600,1399,2199 Ipratropium-Albuterol Nebulize [Duoneb 0.5 mg-3 mg/3 ml Soln] 3 ml INHALATION RT-Q6H Cranberry Fruit Extract [Cranberry] 500 mg PEG/G-TUBE DAILY@0900 Aspirin 81 mg PEG/G-TUBE DAILY@0900 Acetaminophen Tab [Tylenol] 650 mg PEG/G-TUBE Q6H PRN MDD 3GM/24HR PRN Reason: Fever And/ Or Pain carBAMazepine [carBAMazepine Oral Susp] 200 mg PEG/G-TUBE BID@09,2099 Amantadine Hcl Solution 50mg/5ml 100 mg PEG/G-TUBE DAILY@0900 Scopolamine [Scopolamine 1 MG/72 HR patch] 1 patch TRANSDERM Q72H Lactulose 20 gm PEG/G-TUBE TID@0600,1399,2199 Lacosamide [Vimpat] 150 mg PEG/G-TUBE BID@09,2099 Phenylephrine HCl [Sudafed PE] 10 mg PEG/G-TUBE TID Metoprolol Tartrate [Lopressor] 25 mg PEG/G-TUBE BID@899,2100 Metoprolol Tartrate [Lopressor] 50 mg PEG/G-TUBE BID@0900,2100 Cholecalciferol [Vitamin D3 (25 Mcg = 1000 Iu)] 25 mcg PEG/G-TUBE DAILY@0900 Famotidine 40mg/5ml Susp 20 mg PEG/G-TUBE HS@2100 Artificial Tears-Hypromellose [Artificial Tear Drops] 1 drops BOTH EYES Q8H Docusate [Colace] 100 mg PEG/G-TUBE BID Atorvastatin Calcium [Lipitor] 40 mg PEG/G-TUBE HS@2099 Magnesium Hydroxide [Milk of Magnesia] 2,400 mg PEG/G-TUBE DAILY PRN PRN Reason: Constipation Discontinued Baclofen [Lioresal] 10 mg PEG/G-TUBE TID@0600,1400,2200 Discharge Medication List Oxybutynin Chloride [Ditropan Oral Soln] 5 mg PEG/G-TUBE TID@0600,1400,2200 09/08/19 [History] Ipratropium-Albuterol Nebulize [Duoneb 0.5 mg-3 mg/3 ml Soln] 3 ml INHALATION RT-Q6H 12/16/19 [History] Aspirin 81 mg PEG/G-TUBE DAILY@0911/27/20 [History] Cranberry Fruit Extract [Cranberry] 500 mg PEG/G-TUBE DAILY@0911/27/20 [History] Acetaminophen Tab [Tylenol] 650 mg PEG/G-TUBE Q6H PRN MDD 3GM/24HR 06/13/21 [History] Metoprolol Tartrate [Lopressor] 25 mg PEG/G-TUBE BID@0900,209906/13/21 [History] Metoprolol Tartrate [Lopressor] 50 mg PEG/G-TUBE BID@0900,209906/13/21 [History] Cholecalciferol [Vitamin D3 (25 Mcg = 1000 Iu)] 25 mcg PEG/G-TUBE DAILY@0900 07/02/21 [History] carBAMazepine [carBAMazepine Oral Susp] 200 mg PEG/G-TUBE BID@0900,209907/02/21 [History] Amantadine Hcl Solution 50mg/5ml 100 mg PEG/G-TUBE DAILY@0900 12/22/21 [History] Lactulose 20 gm PEG/G-TUBE TID@0600,1400,2200 01/03/22 [History] Scopolamine [Scopolamine 1 MG/72 HR patch] 1 patch TRANSDERM Q72H 01/03/22 [History] Artificial Tears-Hypromellose [Artificial Tear Drops] 1 drops BOTH EYES Q8H 03/24/22 [History] Famotidine 40mg/5ml Susp 20 mg PEG/G-TUBE HS@209903/24/22 [History] Lacosamide [Vimpat] 150 mg PEG/G-TUBE BID@0900,2100 03/24/22 [History] Atorvastatin Calcium [Lipitor] 40 mg PEG/G-TUBE HS@2100 05/01/22 [History] Docusate [Colace] 100 mg PEG/G-TUBE BID 05/01/22 [History] Magnesium Hydroxide [Milk of Magnesia] 2,400 mg PEG/G-TUBE DAILY PRN 05/01/22 [History] Fluconazole [Diflucan] 150 mg PO Q72H #2 tab 05/02/22 [Rx] Phenylephrine HCl [Sudafed PE] 10 mg PEG/G-TUBE TID 05/02/22 [History] Baclofen [Lioresal] 5 mg PEG/G-TUBE TID@0600,1400,2200 tab 05/03/22 [Rx] Follow up Appointment(s)/Referral(s): Matteo Hernandez MD [Primary Care Provider] - 1-2 days
[2022-05-03] MEDS: METOPROLOL TARTRATE 50 MG TAB PEG/G-TUBE SCH (10:06)
[2022-05-03] MEDS: METOPROLOL TARTRATE 25 MG TAB PEG/G-TUBE SCH (10:06)
[2022-05-03 10:36] VITALS: BMI 26.3
[2022-05-03 10:57] VITALS: RESP 17
[2022-05-03 13:02] LABS: LDL Cholesterol,Calculated 70.1 mg/dL (0.0-131.0)
[2022-05-03] MEDS ORDERED: BACLOFEN 10 MG TAB PEG/G-TUBE SCH (14:00)
--- NOTE | 2022-05-03 14:13 | CDI ---
Documentation Clarification Form Date: 05/03/2022 01:45:36 PM From: Ayanna Pedraza RN, CCDS Admit Date: 05/02/2022 07:56:00 PM Patient Name: Chris Marvin Visit Number: [id number] Discharge Date: ATTENTION: The Clinical Documentation Specialists (CDI) and [facility] Coding Staff appreciate your assistance in clarifying documentation. Please respond to the clarification below the line at the bottom and electronically sign. The CDI & [facility] Coding staff will review the response and follow-up if needed. Please note: Queries are made part of the Legal Health Record. If you have any questions, please contact the author of this message via ITS. Dr. Judi Carey A right heel pressure ulcer is documented in the nursing wound assessment starting on 05/02/22. As the attending additional clarification regarding the stage of the pressure ulcer is requested. History/Risk Factors: Multiple sclerosis, Hypertension, Seizure, Clinical Indicators: 61-year-old male with history of multiple sclerosis mostly bedbound in a long term with chronic contractures. He is nonverbal. Nursing wound care assessment has a right heel ulcer. Location: Right heel Wound description: pressure injury stage II, scant drainage, warm skin, color erythema Treatment: Assist with ADL, Turn Q2 hrs per protocol Skin interventions protocol, pillow elevating heels Please clarify the stage of pressure ulcer right heel, if known: [ ] Stage 1 Pressure Ulcer right heel (POA) [ x ] Stage 2 Pressure Ulcer right heel (POA) [ ] Other condition, please specify [ ] Unable to determine Clinical Definitions: Stage 1 Pressure Ulcer: intact skin, non-blanching redness of local area Stage 2 Pressure Ulcer: Partial thickness, loss of dermis, pink wound bed Stage 3 Pressure Ulcer: Full thickness tissue loss Stage 4 Pressure Ulcer: Full thickness tissue loss with exposed bone, tendon, or muscle. Unstageable pressure ulcer: Full thickness tissue loss in which the base of the ulcer is covered by slough (yellow, vaz, suarez, green or brown) and/or eschar (vaz, brown or black) in the wound bed. (Template Last Revised: November 2020) MTDD
[2022-05-03 14:22] VITALS: BP 124/84; PULSE 79; TEMP 97.4
--- NOTE | 2022-05-03 14:44 | CDI ---
Documentation Clarification Form Date: 05/03/2022 02:18:00 PM From: Ayanna Pedraza RN, CCDS Admit Date: 05/02/2022 07:56:00 PM Patient Name: Chris Marvin Visit Number: [id number] Discharge Date: 05/03/2022 02:17:00 PM ATTENTION: The Clinical Documentation Specialists (CDI) and [facility] Coding Staff appreciate your assistance in clarifying documentation. Please respond to the clarification below the line at the bottom and electronically sign. The CDI & [facility] Coding staff will review the response and follow-up if needed. Please note: Queries are made part of the Legal Health Record. If you have any questions, please contact the author of this message via ITS. Dr. Judi Carey Your patient has the documented symptom of Altered Mental Status decreased arousability probably secondary to his medications in your H/P. Additional clarification regarding the etiology/cause of this symptom is requested. History/Risk Factors: Multiple sclerosis, Hypertension, Seizure, Clinical Indicators: 61-year-old male with history of multiple sclerosis mostly bedbound in a [facility]. Per H/P he is on multiple medications that can cause decreased consciousness include carbamazepine, oxybutynin, baclofen, and scopolamine. Treatment: Cardiac/Telemetry monitoring Neuro checks DC Baclofen 10 mg continue Baclofen 5 mg PEG tube TID Please clarify the etiology of the symptom of Altered Mental Status [x ] Toxic encephalopathy due to medications (Carbamazepine, Oxybutynin, Baclofen, Scopolamine [ ] Other condition (please specify) [ ] Unable to determine (Template Last Revised: November 2020) MTDD
== END 2022-05-03 14:17 | DRG 92 ==
LOC: EC 15:57 → 3SCARD 19:56
PROVIDERS: ADMIT Hospitalist; ATTEND Hospitalist
DX: G92.9 Unspecified toxic encephalopathy (principal); I5A Non-ischemic myocardial injury (non-traumatic); J98.11 Atelectasis; G35 Multiple sclerosis; I10 Essential (primary) hypertension; G40.909 Epilepsy, unspecified, not intractable, without status epilepticus; F32.A Depression, unspecified; D50.9 Iron deficiency anemia, unspecified; L89.612 Pressure ulcer of right heel, stage 2; T42.1X5A Adverse effect of iminostilbenes, initial encounter; T44.3X5A Adverse effect of other parasympatholytics [anticholinergics and antimuscarinics] and spasmolytics, initial encounter; T42.8X5A Adverse effect of antiparkinsonism drugs and other central muscle-tone depressants, initial encounter; R13.10 Dysphagia, unspecified; N31.9 Neuromuscular dysfunction of bladder, unspecified; Z96.0 Presence of urogenital implants; R09.02 Hypoxemia; K59.00 Constipation, unspecified; M62.40 Contracture of muscle, unspecified site; R77.8 Other specified abnormalities of plasma proteins; D72.828 Other elevated white blood cell count; R41.89 Other symptoms and signs involving cognitive functions and awareness; R47.1 Dysarthria and anarthria; E86.0 Dehydration; Z79.82 Long term (current) use of aspirin; Z87.440 Personal history of urinary (tract) infections; Z87.01 Personal history of pneumonia (recurrent); Z74.01 Bed confinement status; Z93.1 Gastrostomy status; Z79.51 Long term (current) use of inhaled steroids; Z79.899 Other long term (current) drug therapy; Z88.8 Allergy status to other drugs, medicaments and biological substances; Z98.890 Other specified postprocedural states; Z86.718 Personal history of other venous thrombosis and embolism; Z82.49 Family history of ischemic heart disease and other diseases of the circulatory system; Y92.129 Unspecified place in nursing home as the place of occurrence of the external cause; Z87.81 Personal history of (healed) traumatic fracture
CPT/HCPCS: 36415; 71045; 71046; 74018; 74177; 80053; 80061; 80306; 81001; 82140; 84484; 85025; 85610; 85730; 87040; 87502; 87635; 93005; 94640; 94760; 99285

== ENCOUNTER 2022-05-26 05:55 | Emergency (ER) | payer MEDICARE, OTHER ==
[2022-05-26 06:05] VITALS: RESP 18
--- NOTE | 2022-05-26 07:22 | ED ---
General Adult HPI - General Chief complaint: Recheck/Abnormal Lab/Rx Stated complaint: Peg tube issue Time Seen by Provider: 05/26/22 06:18 Source: EMS Mode of arrival: EMS Limitations: altered mental status - History of Present Illness Initial comments: This patient is 61-year-old man sent in from long-term care facility because she had dislodged his feeding tube. The patient not able to give any additional history. -: unknown Improves with: none Worsens with: none Associated Symptoms: denies other symptoms Treatments Prior to Arrival: none - Related Data Home Medications Medication Instructions Recorded Confirmed Oxybutynin Chloride [Ditropan Oral 5 mg PEG/G-TUBE TID@0600,1400,2200 09/08/19 05/02/22 Soln] Ipratropium-Albuterol Nebulize 3 ml INHALATION RT-Q6H 12/16/19 05/02/22 [Duoneb 0.5 mg-3 mg/3 ml Soln] Aspirin 81 mg PEG/G-TUBE DAILY@89911/27/20 05/02/22 Cranberry Fruit Extract [Cranberry] 500 mg PEG/G-TUBE DAILY@89911/27/20 05/02/22 Acetaminophen Tab [Tylenol] 650 mg PEG/G-TUBE Q6H PRN MDD 06/13/21 05/02/22 3GM/24HR Metoprolol Tartrate [Lopressor] 25 mg PEG/G-TUBE BID@0900,209906/13/21 05/02/22 Metoprolol Tartrate [Lopressor] 50 mg PEG/G-TUBE BID@0900,209906/13/21 05/02/22 Cholecalciferol [Vitamin D3 (25 25 mcg PEG/G-TUBE DAILY@89907/02/21 05/02/22 Mcg = 1000 Iu)] carBAMazepine [carBAMazepine Oral 200 mg PEG/G-TUBE BID@0900,209907/02/21 05/02/22 Susp] Amantadine Hcl Solution 50mg/5ml 100 mg PEG/G-TUBE DAILY@0900 12/22/21 05/02/22 Lactulose 20 gm PEG/G-TUBE TID@0600,1400,2200 01/03/22 05/02/22 Scopolamine [Scopolamine 1 MG/72 1 patch TRANSDERM Q72H 01/03/22 05/02/22 HR patch] Artificial Tears-Hypromellose 1 drops BOTH EYES Q8H 03/24/22 05/02/22 [Artificial Tear Drops] Famotidine 40mg/5ml Susp 20 mg PEG/G-TUBE HS@2100 03/24/22 05/02/22 Atorvastatin Calcium [Lipitor] 40 mg PEG/G-TUBE HS@2100 05/01/22 05/02/22 Docusate [Colace] 100 mg PEG/G-TUBE BID 05/01/22 05/02/22 Magnesium Hydroxide [Milk of 2,400 mg PEG/G-TUBE DAILY PRN 05/01/22 05/02/22 Magnesia] Phenylephrine HCl [Sudafed PE] 10 mg PEG/G-TUBE TID 05/02/22 05/02/22 Previous Rx's Medication Instructions Recorded Fluconazole [Diflucan] 150 mg PO Q72H #2 tab 05/02/22 Baclofen [Lioresal] 5 mg PEG/G-TUBE TID@0600,1400,2200 05/03/22 tab Lacosamide [Vimpat] 150 mg PEG/G-TUBE BID@0900,2100 #4 05/03/22 tab Allergies Allergy/AdvReac Type Severity Reaction Status Date / Time meropenem [From Merrem] Allergy Rash/Hives Verified 05/26/22 06:05 ceftolozane [From Zerbaxa] AdvReac Rapid Verified 05/26/22 06:05 Heart Rate tazobactam [From Zerbaxa] AdvReac Rapid Verified 05/26/22 06:05 Heart Rate Review of Systems ROS Statement: Those systems with pertinent positive or pertinent negative responses have been documented in the HPI. ROS Other: All systems not noted in ROS Statement are negative. Limitations: ROS unobtainable due to patients medical condition Past Medical History Past Medical History: Deep Vein Thrombosis (DVT), GERD/Reflux, Hypertension, Musculoskeletal Disorder, Neurologic Disorder, Pneumonia, Seizure Disorder, Skin Disorder Additional Past Medical History / Comment(s): Pt diagnosed with MS at the age of 39 yrs, seizure/pneumonia/UTI with sepsis/respirtory failure/vented, cognitive impairment, sister states when he is feeling well he could speak a few words/nod head appropriately/give thumbs up/roll eyes but when ill is nonverbal, pt has dysphagia/NPO with peg tube, contractures, last seizure 07/2020, trigeminal neuralgia, dysarthria/anarthria/neurogenic bladder with IDC-UTIs/sepsis, multiple pneumonias, recent seizure-last one 07/03/20, incontinent of stool, pt has had decubitus ulcer coccyx-sister unsure of skin condition at this time, p ast anemia r/t heparin/epistaxiis which involved nasal packing/transfusions, DVT bilateral arms, hypoxia, oxygen at 2L/NC, L femoral head fracture History of Any Multi-Drug Resistant Organisms: ESBL, MRSA, Other MDRO Date of last positivie culture/infection: 03/09/21-MRSA; 11/23/19 ESBL-E.coli MDRO Source:: Abdomen-Peg site MRSA; Urine -ESBL Past Surgical History: Tonsillectomy Additional Past Surgical History / Comment(s): Gastrostomy, peg tube, I&D coccyx decubitius, bronchoscopy, bilateral lasik eye surgery. Past Anesthesia/Blood Transfusion Reactions: No Reported Reaction Additional Past Anesthesia/Blood Transfusion Reaction / Comment(s): Pt has received blood in past without reaction. Past Psychological History: Depression Smoking Status: Never smoker Past Alcohol Use History: None Reported Past Drug Use History: None Reported - Past Family History Father Family Medical History: Myocardial Infarction ([place]) Mother Family Medical History: Hypertension, Myocardial Infarction ([place]) Additional Family Medical History / Comment(s): Mother of a [place] at the age of 73 yrs. General Exam Limitations: no limitations General appearance: alert, in no apparent distress Respiratory exam: Present: rhonchi. Absent: respiratory distress, wheezes, rales, stridor Cardiovascular Exam: Present: regular rate, normal rhythm, normal heart sounds. Absent: systolic murmur, diastolic murmur, rubs, gallop GI/Abdominal exam: Present: soft. Absent: distended, tenderness, guarding, rebound, rigid, mass, pulsatile mass Extremities exam: Present: normal inspection, normal capillary refill Back exam: Present: normal inspection Neurological exam: Present: alert Skin exam: Present: warm, dry, intact, normal color. Absent: rash Course Vital Signs 05/26/22 06:02 Temperature 97.8 F Pulse Rate 85 Respiratory 18 Rate Blood Pressure 144/89 O2 Sat by Pulse 95 Oximetry Procedures - Feeding Tube Replacement Reason for Replacement: patient removed/pulled out Initial Tube Inserted: greater than 2 weeks Type of Tube: gastrostomy Use of Tube: medications and feeding Insertion Site Prior to Procedure: clean Tube Used for Reinsertion: Bard Verification of Placement: auscultation, other Patient Tolerated Procedure: well, no complications Disposition Clinical Impression: PEG tube malfunction Disposition: HOME SELF-CARE Condition: Good Instructions (If sedation given, give patient instructions): How to Use and Care for Your PEG Tube (ED) Is patient prescribed a controlled substance at d/c from ED?: No Referrals: Matteo Hernandez MD [Primary Care Provider] - 1-2 days
[2022-05-26 09:57] VITALS: BP 128/100; PULSE 75; TEMP 97.9
== END 2022-05-26 09:57 | disposition home or self-care (01) ==
LOC: EC 05:55
DX: K94.23 Gastrostomy malfunction (principal); I10 Essential (primary) hypertension; K21.9 Gastro-esophageal reflux disease without esophagitis; Z88.1 Allergy status to other antibiotic agents; Z79.899 Other long term (current) drug therapy; Z79.82 Long term (current) use of aspirin
CPT/HCPCS: 43762; 99283

== ENCOUNTER 2022-09-30 03:56 | Emergency (ER) | payer MEDICARE, OTHER ==
[2022-09-30 04:06] VITALS: TEMP 98.7
--- NOTE | 2022-09-30 04:30 | XR ---
EXAMINATION TYPE: XR chest 2V DATE OF EXAM: 09/30/2022 COMPARISON: 822 HISTORY: Weakness TECHNIQUE: FINDINGS: There is some atelectasis at the lung bases. Left lung is clear. Heart size is normal. Hear t size is fairly normal. IMPRESSION: There is some atelectasis at the right lung base which is increased compared to old exam. No heart failure.
[2022-09-30 05:58] LABS: Appearance,Urine Cloudy (Clear); Bacteria,Urine Many /hpf; Bilirubin,Urine Negative (Negative); Blood,Urine Small (Negative); Color,Urine Light Yellow; Glucose,Urine (UA) Negative (Negative); Ketones,Urine Negative (Negative); Leukocyte Esterase,Urine Large (Negative); Mucus,Urine Rare /hpf; Nitrite,Urine Positive (Negative); Protein,Urine Trace (Negative); RBC,Urine 8 /hpf (0-5); Specific Gravity,Urine 1.013 (1.001-1.035); Urobilinogen,Urine <2.0 mg/dL (<2.0); WBC,Urine 21 /hpf (0-5)
[2022-09-30] MEDS ORDERED: AMOXIC-POT CLAV 875-125MG 1 EACH TAB PEG/G-TUBE STA (06:48)
--- NOTE | 2022-09-30 07:12 | ED ---
General Adult HPI - General Chief complaint: Upper Respiratory Infection Stated complaint: Possible aspiration Time Seen by Provider: 09/30/22 03:58 Source: EMS Mode of arrival: EMS Limitations: altered mental status - History of Present Illness Initial comments: 's patient is 62-year-old man with history of MS and debility. He is sent here from [facility] for evaluation after he had episode of vomiting and the nurses there noted that he had a persistent cough. They were concerned about possibility of aspiration. No fevers noted. No dyspnea. No change in the pulse oximetry numbers there. Patient not able to give any history he is nonverbal. -: hour(s) Improves with: none Worsens with: none Associated Symptoms: cough Treatments Prior to Arrival: none - Related Data Home Medications Medication Instructions Recorded Confirmed Oxybutynin Chloride [Ditropan Oral 5 mg PEG/G-TUBE TID@0600,1400,2200 09/08/19 05/02/22 Soln] Ipratropium-Albuterol Nebulize 3 ml INHALATION RT-Q6H 12/16/19 05/02/22 [Duoneb 0.5 mg-3 mg/3 ml Soln] Aspirin 81 mg PEG/G-TUBE DAILY@89911/27/20 05/02/22 Cranberry Fruit Extract [Cranberry] 500 mg PEG/G-TUBE DAILY@89911/27/20 05/02/22 Acetaminophen Tab [Tylenol] 650 mg PEG/G-TUBE Q6H PRN MDD 06/13/21 05/02/22 3GM/24HR Metoprolol Tartrate [Lopressor] 25 mg PEG/G-TUBE BID@09,209906/13/21 05/02/22 Metoprolol Tartrate [Lopressor] 50 mg PEG/G-TUBE BID@09,209906/13/21 05/02/22 Cholecalciferol [Vitamin D3 (25 25 mcg PEG/G-TUBE DAILY@89907/02/21 05/02/22 Mcg = 1000 Iu)] carBAMazepine [carBAMazepine Oral 200 mg PEG/G-TUBE BID@0900,209907/02/21 05/02/22 Susp] Amantadine Hcl Solution 50mg/5ml 100 mg PEG/G-TUBE DAILY@89912/22/21 05/02/22 Lactulose 20 gm PEG/G-TUBE TID@0600,1400,2200 01/03/22 05/02/22 Scopolamine [Scopolamine 1 MG/72 1 patch TRANSDERM Q72H 01/03/22 05/02/22 HR patch] Artificial Tears-Hypromellose 1 drops BOTH EYES Q8H 03/24/22 05/02/22 [Artificial Tear Drops] Famotidine 40mg/5ml Susp 20 mg PEG/G-TUBE HS@2100 03/24/22 05/02/22 Atorvastatin Calcium [Lipitor] 40 mg PEG/G-TUBE HS@2100 05/01/22 05/02/22 Docusate [Colace] 100 mg PEG/G-TUBE BID 05/01/22 05/02/22 Magnesium Hydroxide [Milk of 2,400 mg PEG/G-TUBE DAILY PRN 05/01/22 05/02/22 Magnesia] Phenylephrine HCl [Sudafed PE] 10 mg PEG/G-TUBE TID 05/02/22 05/02/22 Previous Rx's Medication Instructions Recorded Fluconazole [Diflucan] 150 mg PO Q72H #2 tab 05/02/22 Baclofen [Lioresal] 5 mg PEG/G-TUBE TID@0600,1400,2200 05/03/22 tab Lacosamide [Vimpat] 150 mg PEG/G-TUBE BID@0900,2100 #4 05/03/22 tab Amoxic-Pot Clav 875-125Mg 1 tab PO BID 1 Days #14 tab 09/30/22 [Augmentin 875-125] Allergies Allergy/AdvReac Type Severity Reaction Status Date / Time meropenem [From Merrem] Allergy Rash/Hives Verified 09/30/22 04:03 ceftolozane [From Zerbaxa] AdvReac Rapid Verified 09/30/22 04:03 Heart Rate tazobactam [From Zerbaxa] AdvReac Rapid Verified 09/30/22 04:03 Heart Rate Review of Systems ROS Statement: Those systems with pertinent positive or pertinent negative responses have been documented in the HPI. ROS Other: All systems not noted in ROS Statement are negative. Limitations: ROS unobtainable due to patients medical condition Constitutional: Denies: fever Respiratory: Reports: as per HPI, cough. Denies: dyspnea Cardiovascular: Denies: orthopnea, edema Gastrointestinal: Reports: as per HPI, vomiting Past Medical History Past Medical History: Deep Vein Thrombosis (DVT), GERD/Reflux, Hypertension, Musculoskeletal Disorder, Neurologic Disorder, Pneumonia, Seizure Disorder, Skin Disorder Additional Past Medical History / Comment(s): Pt diagnosed with MS at the age of 39 yrs, seizure/pneumonia/UTI with sepsis/respirtory failure/vented, cognitive impairment, sister states when he is feeling well he could speak a few words/nod head appropriately/give thumbs up/roll eyes but when ill is nonverbal, pt has dysphagia/NPO with peg tube, contractures, last seizure 07/2020, trigeminal neuralgia, dysarthria/anarthria/neurogenic bladder with IDC-UTIs/sepsis, multiple pneumonias, recent seizure-last one 07/03/20, incontinent of stool, pt has had decubitus ulcer coccyx-sister unsure of skin condition at this time, past anemia r/t heparin/epistaxiis which involved nasal packing/transfusions, DVT bilateral arms, hypoxia, oxygen at 2L/NC, L femoral head fracture History of Any Multi-Drug Resistant Organisms: ESBL, MRSA, Other MDRO Date of last positivie culture/infection: 03/09/21-MRSA; 11/23/19 ESBL-E.coli MDRO Source:: Abdomen-Peg site MRSA; Urine -ESBL Past Surgical History: Tonsillectomy Additional Past Surgical History / Comment(s): Gastrostomy, peg tube, I&D coccyx decubitius, bronchoscopy, bilateral lasik eye surgery. Past Anesthesia/Blood Transfusion Reactions: No Reported Reaction Additional Past Anesthesia/Blood Transfusion Reaction / Comment(s): Pt has received blood in past without reaction. Past Psychological History: Depression Smoking Status: Never smoker Past Alcohol Use History: None Reported Past Drug Use History: None Reported - Past Family History Father Family Medical History: Myocardial Infarction ([place]) Mother Family Medical History: Hypertension, Myocardial Infarction ([place]) Additional Family Medical History / Comment(s): Mother of a [place] at the age of 73 yrs. General Exam Limitations: altered mental status General appearance: alert, in no apparent distress Head exam: Present: atraumatic, normocephalic Eye exam: Present: normal appearance Neck exam: Present: normal inspection Respiratory exam: Present: rhonchi. Absent: respiratory distress, wheezes, rales, stridor, chest wall tenderness Cardiovascular Exam: Present: regular rate, normal rhythm, normal heart sounds. Absent: systolic murmur, diastolic murmur, rubs, gallop GI/Abdominal exam: Present: soft. Absent: distended, tenderness, guarding, rebound, rigid, mass Extremities exam: Present: normal capillary refill. Absent: pedal edema, calf tenderness Neurological exam: Present: alert Skin exam: Present: warm, dry, intact, normal color. Absent: rash Course Vital Signs 09/30/22 09/30/22 04:03 07:00 Temperature 98.7 F Pulse Rate 88 74 Respiratory 17 15 Rate Blood Pressure 138/74 139/74 O2 Sat by Pulse 100 98 Oximetry Medical Decision Making - Medical Decision Making This patient is a 62-year-old man sent from [facility] with concern about possibility of aspiration. The chest x-ray does reveal what appears to be some atelectasis. There is no aspiration evident. Given that the street atelectasis is more pronounced than on previous x-ray, will give course of antibiotic on off chance this represents early pneumonia. Will return patient to his skilled care facility with instruction to return him should he start developing any fever, respiratory distress, or other symptoms. - Lab Data Lab Results 09/30/22 09/30/22 09/30/22 Range/Units 04:40 04:40 05:03 Urine Color Light Yellow Urine Appearance Cloudy (Clear) Urine pH 6.0 (5.0-8.0) Ur Specific [place] 1.013 (1.001-1.035) Urine Protein Trace H (Negative) Urine Glucose (UA) Negative (Negative) Urine Ketones Negative (Negative) Urine Blood Small H (Negative) Urine Nitrite Positive (Negative) Urine Bilirubin Negative (Negative) Urine Urobilinogen <2.0 (<2.0) mg/dL Ur Leukocyte Esterase Large H (Negative) Urine RBC 8 H (0-5) /hpf Urine WBC 21 H (0-5) /hpf Urine WBC Clumps Few H (None) /hpf Urine Bacteria Many H (None) /hpf Urine Mucus Rare H (None) /hpf Coronavirus (PCR) Not Detected (Not Detectd) Influenza Type A RNA Not Detected (Not Detectd) Influenza Type B (PCR) Not Detected (Not Detectd) Disposition Clinical Impression: Atelectasis of right lung Disposition: HOME SELF-CARE Condition: Good Instructions (If sedation given, give patient instructions): Atelectasis (ED) Prescriptions: Amoxic-Pot Clav 875-125Mg [Augmentin 875-125] 1 tab PO BID 1 Days #14 tab Is patient prescribed a controlled substance at d/c from ED?: No Referrals: Joanne Dia DO [Primary Care Provider] - 1-2 days
[2022-09-30 08:03] VITALS: BP 148/96; PULSE 89; RESP 16
== END 2022-09-30 08:30 | disposition home or self-care (01) ==
LOC: EC 03:56
DX: J98.11 Atelectasis (principal); I10 Essential (primary) hypertension; K21.9 Gastro-esophageal reflux disease without esophagitis; F32.A Depression, unspecified; Z88.0 Allergy status to penicillin; Z79.82 Long term (current) use of aspirin; Z79.899 Other long term (current) drug therapy; Z20.822 Contact with and (suspected) exposure to COVID-19
CPT/HCPCS: 71046; 81001; 87077; 87086; 87186; 87502; 87635; 99284

== ENCOUNTER 2022-12-19 12:25 | Emergency (ER) | payer MEDICARE, OTHER ==
[2022-12-19 12:33] VITALS: TEMP 98.3
--- NOTE | 2022-12-19 12:36 | ED ---
General Adult HPI - General Chief complaint: Recheck/Abnormal Lab/Rx Stated complaint: peg tube issue Time Seen by Provider: 12/19/22 12:26 Source: patient, EMS, RN notes reviewed Mode of arrival: EMS Limitations: language barrier, altered mental status, physical limitation - History of Present Illness Initial comments: Patient is a pleasant 62-year-old male presenting to the emergency department for PEG tube suction. Patient is nonverbal and provides no history. Nursing facility has concerns of PEG tube is not functioning and therefore transfer p atient. - Related Data Home Medications Medication Instructions Recorded Confirmed Oxybutynin Chloride [Ditropan Oral 5 mg PEG/G-TUBE TID@0600,1400,2200 09/08/19 05/02/22 Soln] Ipratropium-Albuterol Nebulize 3 ml INHALATION RT-Q6H 12/16/19 05/02/22 [Duoneb 0.5 mg-3 mg/3 ml Soln] Aspirin 81 mg PEG/G-TUBE DAILY@89911/27/20 05/02/22 Cranberry Fruit Extract [Cranberry] 500 mg PEG/G-TUBE DAILY@89911/27/20 05/02/22 Acetaminophen Tab [Tylenol] 650 mg PEG/G-TUBE Q6H PRN MDD 06/13/21 05/02/22 3GM/24HR Metoprolol Tartrate [Lopressor] 25 mg PEG/G-TUBE BID@0900,209906/13/21 05/02/22 Metoprolol Tartrate [Lopressor] 50 mg PEG/G-TUBE BID@0900,209906/13/21 05/02/22 Cholecalciferol [Vitamin D3 (25 25 mcg PEG/G-TUBE DAILY@89907/02/21 05/02/22 Mcg = 1000 Iu)] carBAMazepine [carBAMazepine Oral 200 mg PEG/G-TUBE BID@0900,209907/02/21 05/02/22 Susp] Amantadine Hcl Solution 50mg/5ml 100 mg PEG/G-TUBE DAILY@0900 12/22/21 05/02/22 Lactulose 20 gm PEG/G-TUBE TID@0600,1400,2200 01/03/22 05/02/22 Scopolamine [Scopolamine 1 MG/72 1 patch TRANSDERM Q72H 01/03/22 05/02/22 HR patch] Artificial Tears-Hypromellose 1 drops BOTH EYES Q8H 03/24/22 05/02/22 [Artificial Tear Drops] Famotidine 40mg/5ml Susp 20 mg PEG/G-TUBE HS@2100 03/24/22 05/02/22 Atorvastatin Calcium [Lipitor] 40 mg PEG/G-TUBE HS@2100 05/01/22 05/02/22 Docusate [Colace] 100 mg PEG/G-TUBE BID 05/01/22 05/02/22 Magnesium Hydroxide [Milk of 2,400 mg PEG/G-TUBE DAILY PRN 05/01/22 05/02/22 Magnesia] Phenylephrine HCl [Sudafed PE] 10 mg PEG/G-TUBE TID 05/02/22 05/02/22 Previous Rx's Medication Instructions Recorded Fluconazole [Diflucan] 150 mg PO Q72H #2 tab 05/02/22 Baclofen [Lioresal] 5 mg PEG/G-TUBE TID@0600,1400,2200 05/03/22 tab Lacosamide [Vimpat] 150 mg PEG/G-TUBE BID@0900,2100 #4 05/03/22 tab Amoxic-Pot Clav 875-125Mg 1 tab PO BID 1 Days #14 tab 09/30/22 [Augmentin 875-125] Allergies Allergy/AdvReac Type Severity Reaction Status Date / Time meropenem [From Merrem] Allergy Rash/Hives Verified 12/19/22 12:33 ceftolozane [From Zerbaxa] AdvReac Rapid Verified 12/19/22 12:33 Heart Rate tazobactam [From Zerbaxa] AdvReac Rapid Verified 12/19/22 12:33 Heart Rate Review of Systems ROS Statement: Those systems with pertinent positive or pertinent negative responses have been documented in the HPI. ROS Other: All systems not noted in ROS Statement are negative. Limitations: ROS unobtainable due to patients medical condition Past Medical History Past Medical History: Deep Vein Thrombosis (DVT), GERD/Reflux, Hypertension, Musculoskeletal Disorder, Neurologic Disorder, Pneumonia, Seizure Disorder, Skin Disorder Additional Past Medical History / Comment(s): Pt diagnosed with MS at the age of 39 yrs, seizure/pneumonia/UTI with sepsis/respirtory failure/vented, cognitive impairment, sister states when he is feeling well he could speak a few words/nod head appropriately/give thumbs up/roll eyes but when ill is nonverbal, pt has dysphagia/NPO with peg tube, contractures, last seizure 07/2020, trigeminal neuralgia, dysarthria/anarthria/neurogenic bladder with IDC-UTIs/sepsis, multiple pneumonias, recent seizure-last one 07/03/20, incontinent of stool, pt has had decubitus ulcer coccyx-sister unsure of skin condition at this time, past anemia r/t heparin/epistaxiis which involved nasal packing/transfusions, DVT bilateral arms, hypoxia, oxygen at 2L/NC, L femoral head fracture History of Any Multi-Drug Resistant Organisms: ESBL, MRSA, Other MDRO Date of last positivie culture/infection: 03/09/21-MRSA; 11/23/19 ESBL-E.coli MDRO Source:: Abdomen-Peg site MRSA; Urine -ESBL Past Surgical History: Tonsillectomy Additional Past Surgical History / Comment(s): Gastrostomy, peg tube, I&D coccyx decubitius, bronchoscopy, bilateral lasik eye surgery. Past Anesthesia/Blood Transfusion Reactions: No Reported Reaction Additional Past Anesthesia/Blood Transfusion Reaction / Comment(s): Pt has received blood in past without reaction. Past Psychological History: Depression Smoking Status: Never smoker Past Alcohol Use History: None Reported Past Drug Use History: None Reported - Past Family History Father Family Medical History: Myocardial Infarction ([place]) Mother Family Medical History: Hypertension, Myocardial Infarction ([place]) Additional Family Medical History / Comment(s): Mother of a [place] at the age of 73 yrs. General Exam Limitations: language barrier, altered mental status, physical limitation General appearance: alert, in no apparent distress Head exam: Present: atraumatic Eye exam: Present: normal appearance Neck exam: Present: normal inspection Respiratory exam: Present: normal lung sounds bilaterally. Absent: respiratory distress Cardiovascular Exam: Present: regular rate, normal rhythm GI/Abdominal exam: Present: soft, normal bowel sounds. Absent: distended, tenderness, guarding, rebound, rigid, pulsatile mass Extremities exam: Present: normal inspection Neurological exam: Present: alert, altered Psychiatric exam: Present: flat affect Skin exam: Present: normal color Course Vital Signs 12/19/22 12:26 Temperature 98.3 F Pulse Rate 68 Respiratory 17 Rate Blood Pressure 147/88 O2 Sat by Pulse 93 L Oximetry Procedures - Feeding Tube Replacement Reason for Replacement: not functioning/damaged Initial Tube Inserted: greater than 2 weeks Type of Tube: gastrostomy Use of Tube: medications and feeding Insertion Site Prior to Procedure: clean Tube Used for Reinsertion: other (Gastric tube 18-Mosotho) Mosotho Tube Size (F): 18 Balloon Size (mls): 8 Verification of Placement: auscultation Tube Secured by: G-tube attachment device Patient Tolerated Procedure: well, no complications, other (Tube flushes well without difficulty) Medical Decision Making - Medical Decision Making Was pt. sent in by a medical professional or institution (, [facility], COMMUNITY HEALTH PROGRAM COORDINATOR, urgent care, hospital, or jail...) When possible be specific @ -Patient sent from nursing facility Did you speak to anyone other than the patient for history (EMS, parent, family, police, friend...)? What history was obtained from this source @ -Transfer notes with limited information Did you review nursing and triage notes (agree or disagree)? Why? @ -I reviewed and agree with nursing and triage notes Were old charts reviewed (outside hosp., previous admission, EMS record, old EKG, old radiological studies, urgent care reports/EKG's, jail records)? Report findings @ -And for no with limited information Differential Diagnosis (chest pain, altered mental status, abdominal pain women, abdominal pain men, vaginal bleeding, weakness, fever, dyspnea, syncope, headache, dizziness, GI bleed, back pain, seizure, CVA, palpatations, mental health)? @ -not applicable EKG interpreted by me (3pts min.). @ -As above X-rays interpreted by me (1pt min.). @ -None done CT interpreted by me (1pt min.). @ -None done U/S interpreted by me (1pt. min.). @ -None done What testing was considered but not performed or refused? (CT, X-rays, U/S, labs)? Why? @ -None What meds were considered but not given or refused? Why? @ -None Did you discuss the management of the patient with other professionals (professionals i.e. , CECIL, COMMUNITY HEALTH PROGRAM COORDINATOR, lab, RT, psych nurse, psychotherapist social worker, employment specialist, teacher, communications officer, patient case manager)? Give summary @ -No Was smoking cessation discussed for >3mins.? @ -No Was critical care preformed (if so, how long)? @ -No Were there social determinants of health that impacted care today? How? (Homelessness, low income, unemployed, alcoholism, drug addiction, transportation, low edu. Level, literacy, decrease access to med. care, [place] [facility], rehab)? @ -No Was there de-escalation of care discussed even if they declined (Discuss DNR or withdrawal of care, Hospice)? DNR status @ -No What co-morbidities impacted this encounter? (DM, HTN, Smoking, COPD, CAD, Cancer, CVA, ARF, Chemo, Hep., AIDS, mental health diagnosis, sleep apnea, morbid obesity)? @ -None Was patient admitted / discharged? Hospital course, mention meds given and route, prescriptions, significant lab abnormalities, going to OR and other pertinent info. @ -Old tube removed. New tube placed, 18-Mosotho without difficulty. Tube withdrawals gastric contents and flushes well without any complications Undiagnosed new problem with uncertain prognosis? @ -No Drug Therapy requiring intensive monitoring for toxicity (Heparin, Nitro, Insulin, Cardizem)? @ -No Were any procedures done? @ -Gastric tube replacement Diagnosis/symptom? @ -G-tube malfunction Acute, or Chronic, or Acute on Chronic? @ -Acute Uncomplicated (without systemic symptoms) or Complicated (systemic symptoms)? @ -default Side effects of treatment? @ -No Exacerbation, Progression, or Severe Exacerbation? @ -No Poses a threat to life or bodily function? How? (Chest pain, [place], [place], pneumonia, PE, COPD, DKA, ARF, appy, cholecystitis, CVA, Diverticulitis, Homicidal, Suicidal, threat to staff... and all critical care pts) @ -No Disposition Clinical Impression: Feeding tube blocked Disposition: HOME SELF-CARE Condition: Stable Instructions (If sedation given, give patient instructions): Tube Feeding (DC), How to Use and Care for Your PEG Tube (ED) Additional Instructions: Patient tube may be used as normal. Please return for any problems or vomiting or other concerns. Is patient prescribed a controlled substance at d/c from ED?: No Referrals: Tomy Gilbert MD [REFERRING] - 1-2 days Time of Disposition: 12:55
[2022-12-19 14:37] VITALS: BP 138/87; PULSE 72; RESP 18
== END 2022-12-19 14:39 | disposition home or self-care (01) ==
LOC: EC 12:25
DX: K94.23 Gastrostomy malfunction (principal); I10 Essential (primary) hypertension; K21.9 Gastro-esophageal reflux disease without esophagitis; G40.909 Epilepsy, unspecified, not intractable, without status epilepticus; Z79.82 Long term (current) use of aspirin; Z79.899 Other long term (current) drug therapy; Z86.718 Personal history of other venous thrombosis and embolism; Z88.0 Allergy status to penicillin; Z88.1 Allergy status to other antibiotic agents
CPT/HCPCS: 43762; 99283

== ENCOUNTER 2022-12-28 16:10 | Emergency (ER) | payer MEDICARE, OTHER ==
[2022-12-28 16:17] VITALS: TEMP 98.7
--- NOTE | 2022-12-28 17:44 | ED ---
General Adult HPI - General Chief complaint: Recheck/Abnormal Lab/Rx Stated complaint: peg tube replacement Time Seen by Provider: 12/28/22 16:28 Source: patient, RN notes reviewed Mode of arrival: ambulatory Limitations: no limitations - History of Present Illness Initial comments: 62-year-old male with an extensive past medical history presents to the emergency department with a chief complaint of PEG tube problem. Patient presents from [facility] via EMS who reports PEG tube is clogged. Unsure of how long the PEG tube has not been able to then use. Denies any fever or chills. Patient is a and O 0 which is his baseline. - Related Data Home Medications Medication Instructions Recorded Confirmed Ipratropium-Albuterol Nebulize 3 ml INHALATION RT-Q6H 12/16/19 12/19/22 [Duoneb 0.5 mg-3 mg/3 ml Soln] Aspirin 81 mg PEG/G-TUBE DAILY@0900 11/27/20 12/19/22 Cranberry Fruit Extract [Cranberry] 500 mg PEG/G-TUBE DAILY@0900 11/27/20 12/19/22 Acetaminophen Tab [Tylenol] 650 mg PEG/G-TUBE Q6H PRN MDD 06/13/21 12/19/22 3GM/24HR Metoprolol Tartrate [Lopressor] 25 mg PEG/G-TUBE BID@0900,209906/13/21 12/19/22 Metoprolol Tartrate [Lopressor] 50 mg PEG/G-TUBE BID@0900,2100 06/13/21 12/19/22 Cholecalciferol [Vitamin D3 (25 25 mcg PEG/G-TUBE DAILY@0900 07/02/21 12/19/22 Mcg = 1000 Iu)] carBAMazepine [carBAMazepine Oral 200 mg PEG/G-TUBE BID@0900,2100 07/02/21 12/19/22 Susp] Amantadine Hcl Solution 50mg/5ml 100 mg PEG/G-TUBE DAILY@0900 12/22/21 12/19/22 Lactulose 20 gm PEG/G-TUBE TID@0600,1400,2200 01/03/22 12/19/22 Scopolamine [Scopolamine 1 MG/72 1 patch TRANSDERM Q72H 01/03/22 12/19/22 HR patch] Artificial Tears-Hypromellose 1 drops BOTH EYES Q8H 03/24/22 12/19/22 [Artificial Tear Drops] Famotidine 40mg/5ml Susp 20 mg PEG/G-TUBE HS@2100 03/24/22 12/19/22 Docusate [Colace] 100 mg PEG/G-TUBE BID 05/01/22 12/19/22 Magnesium Hydroxide [Milk of 2,400 mg PEG/G-TUBE Q72H PRN 05/01/22 12/19/22 Magnesia] Oxybutynin Chloride 5 mg PEG/G-TUBE Q8H 12/19/22 12/19/22 Sulfamethox-Tmp 800-160Mg [Bactrim 1 tab PEG/G-TUBE Q12HR 12/19/22 12/19/22 DS 800-160 mg] guaiFENesin [Diabetic Tussin] 200 mg PEG/G-TUBE Q6H PRN 12/19/22 12/19/22 Previous Rx's Medication Instructions Recorded Baclofen [Lioresal] 5 mg PEG/G-TUBE TID@0600,1400,2200 05/03/22 tab Lacosamide [Vimpat] 150 mg PEG/G-TUBE BID@0900,2100 #4 05/03/22 tab Allergies Allergy/AdvReac Type Severity Reaction Status Date / Time meropenem [From Merrem] Allergy Rash/Hives Verified 12/28/22 16:17 ceftolozane [From Zerbaxa] AdvReac Rapid Verified 12/28/22 16:17 Heart Rate tazobactam [From Zerbaxa] AdvReac Rapid Verified 12/28/22 16:17 Heart Rate Review of Systems ROS Statement: Those systems with pertinent positive or pertinent negative responses have been documented in the HPI. ROS Other: All systems not noted in ROS Statement are negative. Past Medical History Past Medical History: Deep Vein Thrombosis (DVT), GERD/Reflux, Hypertension, Musculoskeletal Disorder, Neurologic Disorder, Pneumonia, Seizure Disorder, Skin Disorder Additional Past Medical History / Comment(s): Pt diagnosed with MS at the age of 39 yrs, seizure/pneumonia/UTI with sepsis/respirtory failure/vented, cognitive impairment, sister states when he is feeling well he could speak a few words/nod head appropriately/give thumbs up/roll eyes but when ill is nonverbal, pt has dysphagia/NPO with peg tube, contractures, last seizure 07/2020, trigeminal neuralgia, dysarthria/anarthria/neurogenic bladder with IDC-UTIs/sepsis, multiple pneumonias, recent seizure-last one 07/03/20, incontinent of stool, pt has had decubitus ulcer coccyx-sister unsure of skin condition at this time, past anemia r/t heparin/epistaxiis which involved nasal packing/transfusions, DVT bilateral arms, hypoxia, oxygen at 2L/NC, L femoral head fracture History of Any Multi-Drug Resistant Organisms: ESBL, MRSA, Other MDRO Date of last positivie culture/infection: 03/09/21-MRSA; 11/23/19 ESBL-E.coli MDRO Source:: Abdomen-Peg site MRSA; Urine -ESBL Past Surgical History: Tonsillectomy Additional Past Surgical History / Comment(s): Gastrostomy, peg tube, I&D coccyx decubitius, bronchoscopy, bilateral lasik eye surgery. Past Anesthesia/Blood Transfusion Reactions: No Reported Reaction Additional Past Anesthesia/Blood Transfusion Reaction / Comment(s): Pt has received blood in past without reaction. Past Psychological History: Depression Smoking Status: Never smoker Past Alcohol Use History: None Reported Past Drug Use History: None Reported - Past Family History Father Family Medical History: Myocardial Infarction ([place]) Mother Family Medical History: Hypertension, Myocardial Infarction ([place]) Additional Family Medical History / Comment(s): Mother of a [place] at the age of 73 yrs. General Exam Limitations: no limitations General appearance: alert, in no apparent distress Head exam: Present: atraumatic, normocephalic, normal inspection Eye exam: Present: normal appearance, PERRL, EOMI. Absent: scleral icterus, conjunctival injection, periorbital swelling ENT exam: Present: normal exam, mucous membranes moist Neck exam: Present: normal inspection. Absent: tenderness, meningismus, lymphadenopathy Respiratory exam: Present: normal lung sounds bilaterally. Absent: respiratory distress, wheezes, rales, rhonchi, stridor Cardiovascular Exam: Present: regular rate, normal rhythm, normal heart sounds. Absent: systolic murmur, diastolic murmur, rubs, gallop, clicks GI/Abdominal exam: Present: soft, normal bowel sounds, other (G tube site with redness, swelling, or purulent discharge ). Absent: distended, tenderness, guarding, rebound, rigid Extremities exam: Present: normal inspection, full ROM, normal capillary refill. Absent: tenderness, pedal edema, joint swelling, calf tenderness Back exam: Present: normal inspection Neurological exam: Present: alert, oriented X3, CN II-XII intact Psychiatric exam: Present: normal affect, normal mood Skin exam: Present: warm, dry, intact, normal color. Absent: rash Course Vital Signs 12/28/22 12/28/22 12/28/22 16:12 17:16 21:26 Temperature 98.7 F Pulse Rate 63 67 86 Respiratory 18 16 Rate Blood Pressure 108/75 146/82 153/78 O2 Sat by Pulse 98 94 L 96 Oximetry 12/28/22 12/28/22 12/28/22 21:31 22:00 22:10 Temperature Pulse Rate 80 78 78 Respiratory 20 18 28 H Rate Blood Pressure 164/78 133/79 138/79 O2 Sat by Pulse 96 95 95 Oximetry Procedures - Feeding Tube Replacement Reason for Replacement: not functioning/damaged Initial Tube Inserted: greater than 2 weeks Type of Tube: gastrostomy Use of Tube: medications and feeding Insertion Site Prior to Procedure: clean Tube Used for Reinsertion: Stein Qatari Tube Size (F): 18 Balloon Size (mls): 10 Verification of Placement: KUB Tube Secured by: tape/dressing Patient Tolerated Procedure: well, no complications Additional Comments: Site is clean and dry without any erythema or edema Medical Decision Making - Medical Decision Making Was pt. sent in by a medical professional or institution (CE[facility]IL Ribera, DOORSHAKER, urgent care, hospital, or [place] [facility]...) When possible be specific @ -[No] Did you speak to anyone other than the patient for history (EMS, parent, family, police, friend...)? What history was obtained from this source @ -[No] Did you review nursing and triage notes (agree or disagree)? Why? @ -[I reviewed and agree with nursing and triage notes] Were old charts reviewed (outside hosp., previous admission, EMS record, old EKG, old radiological studies, urgent care reports/EKG's, [place] [facility] records)? Report findings @ -[No old charts were reviewed] Differential Diagnosis (chest pain, altered mental status, abdominal pain women, abdominal pain men, vaginal bleeding, weakness, fever, dyspnea, syncope, headache, dizziness, GI bleed, back pain, seizure, CVA, palpatations, mental health, musculoskeletal)? @ -[not applicable] EKG interpreted by me (3pts min.). @ -[As above] X-rays interpreted by me (1pt min.). @ -[None done] CT interpreted by me (1pt min.). @ -[None done] U/S interpreted by me (1pt. min.). @ -[None done] What testing was considered but not performed or refused? (CT, X-rays, U/S, labs)? Why? @ -[None] What meds were considered but not given or refused? Why? @ -[None] Did you discuss the management of the patient with other professionals (professionals i.e. , PA, DOORSHAKER, lab, RT, psych nurse, social studies department chair, pest control supervisor, teacher, chairman & chief executive officer, cyanide case hardener)? Give summary @ -[No] Was smoking cessation discussed for >3mins.? @ -[No] Was critical care preformed (if so, how long)? @ -[No] Were there social determinants of health that impacted care today? How? (Homelessness, low income, unemployed, alcoholism, drug addiction, transportation, low edu. Level, literacy, decrease access to med. care, senior care, rehab)? @ -[No] Was there de-escalation of care discussed even if they declined (Discuss DNR or withdrawal of care, Hospice)? DNR status @ -[No] What co-morbidities impacted this encounter? (DM, HTN, Smoking, COPD, CAD, Cancer, CVA, ARF, Chemo, Hep., AIDS, mental health diagnosis, sleep apnea, morbid obesity)? @ -[None] Was patient admitted / discharged? Hospital course, mention meds given and rou te, prescriptions, significant lab abnormalities, going to OR and other pertinent info. @ -Discharged. This is a 62-year-old female presents to the emergency department with peg tube placement. Patient had a thorough history and physical exam performed heart rate regular rate and rhythm, lungs are clear to auscultation bilaterally. Abdomen is soft and non-tender, . Patient had PEG tube placed with success. I discussed at length with the patient who verbalized understanding and is requesting discharge. Return precautions were discussed. Patient discharged in stable condition. Case discussed with Dr. [place] who agrees with plan of care Undiagnosed new problem with uncertain prognosis? @ -[No] Drug Therapy requiring intensive monitoring for toxicity (Heparin, Nitro, Insulin, Cardizem)? @ -[No] Were any procedures done? @ -[No] Diagnosis/symptom? @ -peg tube placement Acute, or Chronic, or Acute on Chronic? @ -acute Uncomplicated (without systemic symptoms) or Complicated (systemic symptoms)? @ -uncomplicated Side effects of treatment? @ -[No] Exacerbation, Progression, or Severe Exacerbation? @ -[No] Poses a threat to life or bodily function? How? (Chest pain, [place], [place], pneumonia, PE, COPD, DKA, ARF, appy, cholecystitis, CVA, Diverticulitis, Homicidal, Suicidal, threat to staff... and all critical care pts) @ -low likelihodod Disposition Clinical Impression: PEG tube malfunction Disposition: HOME SELF-CARE Condition: Stable Additional Instructions: Please return to the nearest emergency department if worsening symptoms Is patient prescribed a controlled substance at d/c from ED?: No Referrals: None,Stated [Primary Care Provider] - 1-2 days Time of Disposition: 19:08
--- NOTE | 2022-12-28 18:47 | XR ---
EXAMINATION TYPE: XR abdomen 1V DATE OF EXAM: 12/28/2022 6:05 PM CLINICAL HISTORY: Checking PEG tube placement TECHNIQUE: AP supine portable COMPARISON: 05/02/2022 FINDINGS: Single view obtained over the left upper quadrant and epigastrium. PEG tube tip superimposed over the L1 vertebral body. This position is over the expected position of the gastric body, similar to that seen on the prior study. Dilated loop of colon noted over the mid abdomen and left upper quadrant, measuring up to 6 cm calcul us. Pneumoperitoneum cannot be excluded on this radiograph. IMPRESSION: AP supine radiograph findings as noted.
--- NOTE | 2022-12-28 21:16 | CT ---
EXAMINATION TYPE: CT abdomen pelvis wo con DATE OF EXAM: 12/28/2022 HISTORY: abdominal distention TECHNIQUE: Departmental protocol CT DLP: 1074 mGycm. Automated Exposure Control for Dose Reduction was Utilized. COMPARISON: CT 05/02/2022 FINDINGS: Within the limitations of a non-contrast study, the following observations are made. LUNG BASES: No significant abnormality is appreciated. LIVER/GB: No significant abnormality is appreciated. PANCREAS: No significant abnormality is seen. SPLEEN: No significant abnormality is seen. ADRENALS: No significant abnormality is seen. KIDNEYS: No significant abnormality is seen. BOWEL: The rectum appears mildly-moderately distended with stool, and the sigmoid is markedly distend ed (9 cm caliber) throughout its extent, rising up out of the pelvis to the level of the umbilicus. T here is no sigmoid volvulus. The mesocolon is negative for acute findings. There is no pneumatosis. B owel otherwise unremarkable. PERITONEAL CAVITY: No pneumoperitoneum. No peritoneal fluid. PELVIC VISCERA: Stein catheter is in place. LYMPH NODES: No greater than 1cm abdominal or pelvic lymph nodes are appreciated. VASCULAR: No abdominal aortic aneurysm. OSSEOUS STRUCTURES: No acute processes. Chronic severe bilateral hip changes noted, greater on the le ft. IMPRESSION: Sigmoid colon dilation.
[2022-12-28 22:10] VITALS: PULSE 78
[2022-12-28 22:11] VITALS: BP 138/79; RESP 28
== END 2022-12-28 22:49 | disposition home or self-care (01) ==
LOC: EC 16:10
DX: K94.23 Gastrostomy malfunction (principal); I10 Essential (primary) hypertension; K21.9 Gastro-esophageal reflux disease without esophagitis; G40.909 Epilepsy, unspecified, not intractable, without status epilepticus; Z79.82 Long term (current) use of aspirin; Z79.899 Other long term (current) drug therapy; Z86.718 Personal history of other venous thrombosis and embolism; Z88.0 Allergy status to penicillin; Z88.1 Allergy status to other antibiotic agents
CPT/HCPCS: 43762; 74018; 74176; 99284

== ENCOUNTER 2023-05-01 10:21 | Emergency (ER) | payer MEDICARE, OTHER ==
[2023-05-01 10:29] VITALS: RESP 17; TEMP 97.8
--- NOTE | 2023-05-01 10:42 | ED ---
Recheck HPI - General Chief Complaint: Recheck/Abnormal Lab/Rx Stated Complaint: Pull out feeding tube Time Seen by Provider: 05/01/23 10:24 Source: EMS, RN notes reviewed Mode of arrival: EMS Limitations: language barrier, physical limitation - History of Present Illness Initial Comments: This is a 62-year-old male who presents to the emergency department needing PEG tube replacement. Patient resides at [facility], and it was discovered by staff this morning that he had pulled out his PEG tube. They are unsure how long the PEG tube had been out for. Patient is nonverbal at baseline and unable to provide any history himself. MD Complaint: other (Pulled out PEG tube) - Related Data Home Medications Medication Instructions Recorded Confirmed Ipratropium-Albuterol Nebulize 3 ml INHALATION RT-Q6H 12/16/19 12/19/22 [Duoneb 0.5 mg-3 mg/3 ml Soln] Aspirin 81 mg PEG/G-TUBE DAILY@89911/27/20 12/19/22 Cranberry Fruit Extract [Cranberry] 500 mg PEG/G-TUBE DAILY@89911/27/20 12/19/22 Acetaminophen Tab [Tylenol] 650 mg PEG/G-TUBE Q6H PRN MDD 06/13/21 12/19/22 3GM/24HR Metoprolol Tartrate [Lopressor] 25 mg PEG/G-TUBE BID@09,209906/13/21 12/19/22 Metoprolol Tartrate [Lopressor] 50 mg PEG/G-TUBE BID@899,209906/13/21 12/19/22 Cholecalciferol [Vitamin D3 (25 25 mcg PEG/G-TUBE DAILY@89907/02/21 12/19/22 Mcg = 1000 Iu)] carBAMazepine [carBAMazepine Oral 200 mg PEG/G-TUBE BID@899,209907/02/21 12/19/22 Susp] Amantadine Hcl Solution 50mg/5ml 100 mg PEG/G-TUBE DAILY@0912/22/21 12/19/22 Lactulose 20 gm PEG/G-TUBE TID@0600,1400,2200 01/03/22 12/19/22 Scopolamine [Scopolamine 1 MG/72 1 patch TRANSDERM Q72H 01/03/22 12/19/22 HR patch] Artificial Tears-Hypromellose 1 drops BOTH EYES Q8H 03/24/22 12/19/22 [Artificial Tear Drops] Famotidine 40mg/5ml Susp 20 mg PEG/G-TUBE HS@2100 03/24/22 12/19/22 Docusate [Colace] 100 mg PEG/G-TUBE BID 05/01/22 12/19/22 Magnesium Hydroxide [Milk of 2,400 mg PEG/G-TUBE Q72H PRN 05/01/22 12/19/22 Magnesia] Sulfamethox-Tmp 800-160Mg [Bactrim 1 tab PEG/G-TUBE Q12HR 12/19/22 12/19/22 DS 800-160 mg] guaiFENesin [Diabetic Tussin] 200 mg PEG/G-TUBE Q6H PRN 12/19/22 12/19/22 oxyBUTYnin chloride 5 mg PEG/G-TUBE Q8H 12/19/22 12/19/22 Previous Rx's Medication Instructions Recorded Baclofen [Lioresal] 5 mg PEG/G-TUBE TID@0600,1400,2200 05/03/22 tab Lacosamide [Vimpat] 150 mg PEG/G-TUBE BID@0900,2100 #4 05/03/22 tab Allergies Allergy/AdvReac Type Severity Reaction Status Date / Time meropenem [From Merrem] Allergy Rash/Hives Verified 12/28/22 16:17 ceftolozane [From Zerbaxa] AdvReac Rapid Verified 12/28/22 16:17 Heart Rate tazobactam [From Zerbaxa] AdvReac Rapid Verified 12/28/22 16:17 Heart Rate Review of Systems ROS Statement: Those systems with pertinent positive or pertinent negative responses have been documented in the HPI. ROS Other: All systems not noted in ROS Statement are negative. Past Medical History Past Medical History: Deep Vein Thrombosis (DVT), GERD/Reflux, Hypertension, Musculoskeletal Disorder, Neurologic Disorder, Pneumonia, Seizure Disorder, Skin Disorder Additional Past Medical History / Comment(s): Pt diagnosed with MS at the age of 39 yrs, seizure/pneumonia/UTI with sepsis/respirtory failure/vented, cognitive impairment, sister states when he is feeling well he could speak a few words/nod head appropriately/give thumbs up/roll eyes but when ill is nonverbal, pt has dysphagia/NPO with peg tube, contractures, last seizure 07/2020, trigeminal neuralgia, dysarthria/anarthria/neurogenic bladder with IDC-UTIs/sepsis, multiple pneumonias, recent seizure-last one 07/03/20, incontinent of stool, pt has had decubitus ulcer coccyx-sister unsure of skin condition at this time, past anemia r/t heparin/epistaxiis which involved nasal packing/transfusions, DVT bilateral arms, hypoxia, oxygen at 2L/NC, L femoral head fracture History of Any Multi-Drug Resistant Organisms: ESBL, MRSA, Other MDRO Date of last positivie culture/infection: 03/09/21-MRSA; 11/23/19 ESBL-E.coli MDRO Source:: Abdomen-Peg site MRSA; Urine -ESBL Past Surgical History: Tonsillectomy Additional Past Surgical History / Comment(s): Gastrostomy, peg tube, I&D coccyx decubitius, bronchoscopy, bilateral lasik eye surgery. Past Anesthesia/Blood Transfusion Reactions: No Reported Reaction Additional Past Anesthesia/Blood Transfusion Reaction / Comment(s): Pt has received blood in past without reaction. Past Psychological History: Depression Smoking Status: Never smoker Past Alcohol Use History: None Reported Past Drug Use History: None Reported - Past Family History Father Family Medical History: Myocardial Infarction ([place]) Mother Family Medical History: Hypertension, Myocardial Infarction ([place]) Additional Family Medical History / Comment(s): Mother of a [place] at the age of 73 yrs. General Exam Limitations: language barrier, physical limitation General appearance: alert Head exam: Present: atraumatic, normocephalic, normal inspection Respiratory exam: Present: normal lung sounds bilaterally. Absent: respiratory distress, wheezes, rales, rhonchi, stridor Cardiovascular Exam: Present: regular rate, normal rhythm, normal heart sounds. Absent: systolic murmur, diastolic murmur, rubs, gallop, clicks GI/Abdominal exam: Present: other (PEG tube stoma in tact without surrounding erythema or discharge.) Neurological exam: Present: alert Course Vital Signs 05/01/23 05/01/23 10:25 11:58 Temperature 97.8 F Pulse Rate 78 71 Respiratory 17 17 Rate Blood Pressure 133/87 145/116 O2 Sat by Pulse 97 98 Oximetry Medical Decision Making - Medical Decision Making This is a 62-year-old male who presents to the emergency department for PEG tube replacement. Was pt. sent in by a medical professional or institution? @ -No Did you speak to anyone other than the patient for history? @ -EMS provided all of the history, as the patient is non verbal. Did you review nursing and triage notes? @ -Yes, and I agree, it is accurate with regards to the patient's symptoms. Were old charts reviewed? @ -No Differential Diagnosis? @ -Not applicable EKG interpreted by me (3pts min.)? @ -Not obtained X-rays interpreted by me (1pt min.)? @ -KUB x-ray obtained. My interpretation identifies accurate placement of the PEG tube. CT interpreted by me (1pt min.)? @ -Not obtained U/S interpreted by me (1pt. min.)? @ -Not obtained What testing was considered but not performed? (CT, X-rays, U/S, labs)? Why? @ -None What meds were considered but not given? Why? @ -None Did you discuss the management of the patient with other professionals? @ -No Did you reconcile home meds? @ -No Was smoking cessation discussed for >3mins.? @ -No Was critical care preformed (if so, how long)? @ -No Were there social determinants of health that impacted care today? How? (Homelessness, low income, unemployed, alcoholism, drug addiction, transportation, low edu. Level, literacy, decrease access to med. care, [facility], rehab)? @ -No Was there de-escalation of care discussed even if they declined? (Discuss DNR or withdrawal of care, Hospice)? @ -No What co-morbidities impacted this encounter? (DM, HTN, Smoking, COPD, CAD, Cancer, CVA, Hep., AIDS, mental health diagnosis, sleep apnea, morbid obesity)? @ -Neurological disorder Was patient admitted / discharged? @ -Discharged. On physical examination, the stoma had started to close, suggesting that the PEG tube had been out for several days. Dr. Panchal evaluated the patient alongside of me at bedside. He was able to use a Q-tip to reopen the tract. 14-Yoruba PEG tube was placed. KUB PEG-o-gram was used to confirm placement. Patient discharged back to [facility] in stable condition. Undiagnosed new problem with uncertain prognosis? @ -None Drug Therapy requiring intensive monitoring for toxicity (Heparin, Nitro, Insulin, Cardizem)? @ -None Were any procedures done? @ -None Diagnosis/symptom? @ -PEG tube insertion Acute, or Chronic, or Acute on Chronic? @ -Acute Uncomplicated (without systemic symptoms) or Complicated (systemic symptoms)? @ -Uncomplicated Side effects of treatment? @ -None Exacerbation, Progression, or Severe Exacerbation] @ -Not applicable Poses a threat to life or bodily function? @ -No Return precautions reviewed in depth, the patient is instructed to return to the emergency department with any new, worsening, or concerning symptoms. This case was discussed in detail with the attending ED physician, Dr. Panchal. Presentation, findings, and treatment plan discussed in detail as well. - Radiology Data Radiology results: report reviewed, image reviewed Disposition Clinical Impression: Status post insertion of percutaneous endoscopic gastrostomy (PEG) tube Disposition: HOME SELF-CARE Instructions (If sedation given, give patient instructions): Percutaneous Endoscopic Gastrostomy (ED), How to Use and Care for Your PEG Tube (ED) Additional Instructions: Return to the emergency department with any new, worsening, or concerning symptoms. Follow up with your primary care provider in 1-2 days. Is patient prescribed a controlled substance at d/c from ED?: No Referrals: Nonstaff,Physician [Primary Care Provider] - 1-2 days
--- NOTE | 2023-05-01 11:24 | XR ---
EXAMINATION TYPE: XR KUB DATE OF EXAM: 05/01/2023 COMPARISON: KUB radiograph 05/02/2022, CT abdomen pelvis 12/28/2022 HISTORY: PEG tube placement. TECHNIQUE: Single frontal view of the abdomen was obtained. FINDINGS: PEG tube identified overlying the distal stomach with opacification of the stomach and proximal duode num. No contrast extravasation. Redemonstration of dilated sigmoid colon measuring up to 8.5 cm. Gas is identified throughout the colon. Visualized dilated small bowel. Elevation of the right hemidiaphr agm. No acute osseous abnormality. Degenerative changes of the thoracolumbar spine. IMPRESSION: 1. PEG tube demonstrating and appropriate position without contrast extravasation. 2. Redemonstration of sigmoid colon gaseous dilatation. Correlate for rectal stool impaction.
[2023-05-01 12:01] VITALS: BP 145/116; PULSE 71
== END 2023-05-01 12:18 | disposition home or self-care (01) ==
LOC: EC 10:21
DX: Z93.1 Gastrostomy status (principal); I10 Essential (primary) hypertension; K21.9 Gastro-esophageal reflux disease without esophagitis; Z86.59 Personal history of other mental and behavioral disorders; Z79.899 Other long term (current) drug therapy; Z79.82 Long term (current) use of aspirin; Z88.6 Allergy status to analgesic agent; Z88.8 Allergy status to other drugs, medicaments and biological substances
CPT/HCPCS: 74018; 99283; Q9967

== ENCOUNTER 2023-05-13 10:52 | Inpatient (IN) | payer MEDICARE, OTHER ==
[2023-05-13] MEDS ORDERED: KETOROLAC 15 MG/ML 1 ML VIAL IVP STA (11:21)
[2023-05-13] MEDS ORDERED: SODIUM CHLORIDE 0.9% 1,000 ML IV STA ×2 (11:21→12:40)
[2023-05-13 12:03] LABS: Basophils % (A) 0 %; Eosinophils # (A) 0.1 k/uL (0-0.7); Eosinophils % (A) 1 %; HCT 40.7 % (39.0-53.0); HGB 13.2 gm/dL (13.0-17.5); Lymphocytes # (A) 0.3 k/uL (1.0-4.8); Lymphocytes % (A) 2 %; MCH 27.7 pg (25.0-35.0); MCHC 32.3 g/dL (31.0-37.0); MCV 85.7 fL (80.0-100.0); Mean Platelet Volume 9.1; Monocytes # (A) 1.1 k/uL (0-1.0); Monocytes % (A) 7 %; Neutrophils % (A) 88 %; Platelet Count 248 k/uL (150-450); RBC 4.75 m/uL (4.30-5.90); WBC 14.7 k/uL (3.8-10.6)
--- NOTE | 2023-05-13 12:05 | ED ---
General Adult HPI - General Chief complaint: Urogenital Stated complaint: Possible sepsis Time Seen by Provider: 05/13/23 10:57 Source: EMS Mode of arrival: EMS Limitations: altered mental status - History of Present Illness Initial comments: 62-year-old male with past medical history significant for dementia with PEG tube, catheter, and history of CAUTI presents to the ED with a chief complaint of altered mental status. Per EMS, nursing staff noted decreased urinary output over the last 2 days and altered mental status today. Patient is reportedly a no 1-2 however has been less responsive lately. No other complaints. Spoke to the sister who provided additional history. States that with history of dementia and MS normally does not converse however will shake his head yes or no to answer questions. States over the past month, patient has been being treated for a UTI. Had one round of amoxicillin without improvement of symptoms and notes that symptoms have been progressively worsening since then. Also notes that the patient's catheter has not been changed in the past 6 weeks. - Related Data Home Medications Medication Instructions Recorded Confirmed Ipratropium-Albuterol Nebulize 3 ml INHALATION RT-Q4H 12/16/19 05/13/23 [Duoneb 0.5 mg-3 mg/3 ml Soln] Aspirin 81 mg PEG/G-TUBE DAILY@0900 11/27/20 05/13/23 Acetaminophen Tab [Tylenol] 650 mg PEG/G-TUBE Q4H PRN 06/13/21 05/13/23 Metoprolol Tartrate [Lopressor] 50 mg PEG/G-TUBE BID@0900,2100 06/13/21 05/13/23 carBAMazepine [carBAMazepine Oral 100 mg PEG/G-TUBE 07/02/21 05/13/23 Susp] TID@0600,1400,2200 Amantadine Hcl Solution 50mg/5ml 100 mg PEG/G-TUBE DAILY@0900 12/22/21 05/13/23 Lactulose 20 gm PEG/G-TUBE TID@0900,1700,2100 01/03/22 05/13/23 Scopolamine [Scopolamine 1 MG/72 1 patch TRANSDERM Q72H 01/03/22 05/13/23 HR patch] oxyBUTYnin chloride 5 mg PEG/G-TUBE TID@0600,1400,2200 12/19/22 05/13/23 Famotidine [Pepcid] 20 mg PEG/G-TUBE HS@2100 05/13/23 05/13/23 Previous Rx's Medication Instructions Recorded Baclofen [Lioresal] 5 mg PEG/G-TUBE TID@0600,1400,2200 05/03/22 tab Lacosamide [Vimpat] 150 mg PEG/G-TUBE BID@0900,2100 #4 05/03/22 tab Allergies Allergy/AdvReac Type Severity Reaction Status Date / Time meropenem [From Merrem] Allergy Rash/Hives Verified 05/13/23 12:04 ceftolozane [From Zerbaxa] AdvReac Rapid Verified 05/13/23 12:04 Heart Rate tazobactam [From Zerbaxa] AdvReac Rapid Verified 05/13/23 12:04 Heart Rate Review of Systems ROS Statement: Those systems with pertinent positive or pertinent negative responses have been documented in the HPI. ROS Other: All systems not noted in ROS Statement are negative. Past Medical History Past Medical History: Deep Vein Thrombosis (DVT), GERD/Reflux, Hypertension, Musculoskeletal Disorder, Neurologic Disorder, Pneumonia, Seizure Disorder, Skin Disorder Additional Past Medical History / Comment(s): Pt diagnosed with MS at the age of 39 yrs, seizure/pneumonia/UTI with sepsis/respirtory failure/vented, cognitive impairment, sister states when he is feeling well he could speak a few words/nod head appropriately/give thumbs up/roll eyes but when ill is nonverbal, pt has dysphagia/NPO with peg tube, contractures, last seizure 07/2020, trigeminal neuralgia, dysarthria/anarthria/neurogenic bladder with IDC-UTIs/sepsis, multiple pneumonias, recent seizure-last one 07/03/20, incontinent of stool, pt has had decubitus ulcer coccyx-sister unsure of skin condition at this time, past anemia r/t heparin/epistaxiis which involved nasal packing/transfusions, DVT bilateral arms, hypoxia, oxygen at 2L/NC, L femoral head fracture History of Any Multi-Drug Resistant Organisms: ESBL, MRSA, Other MDRO Date of last positivie culture/infection: 03/09/21-MRSA; 11/23/19 ESBL-E.coli MDRO Source:: Abdomen-Peg site MRSA; Urine -ESBL Past Surgical History: Tonsillectomy Additional Past Surgical History / Comment(s): Gastrostomy, peg tube, I&D coccyx decubitius, bronchoscopy, bilateral lasik eye surgery. Past Anesthesia/Blood Transfusion Reactions: No Reported Reaction Additional Past Anesthesia/Blood Transfusion Reaction / Comment(s): Pt has rec eived blood in past without reaction. Past Psychological History: Depression Smoking Status: Never smoker Past Alcohol Use History: None Reported Past Drug Use History: None Reported - Past Family History Father Family Medical History: Myocardial Infarction ([place]) Mother Family Medical History: Hypertension, Myocardial Infarction ([place]) Additional Family Medical History / Comment(s): Mother of a [place] at the age of 73 yrs. General Exam Limitations: altered mental status General appearance: other (Poor response to sternal rub however awakened upon movement of the patient briefly. Currently ANOx0) Respiratory exam: Present: other (Course breath sounds bilaterally) Cardiovascular Exam: Present: tachycardia GI/Abdominal exam: Present: distended Course Vital Signs 05/13/23 05/13/23 11:10 14:07 Temperature 102.7 F H 99.7 F H Pulse Rate 130 H 103 H Respiratory 22 28 H Rate Blood Pressure 148/80 90/61 O2 Sat by Pulse 94 L 94 L Oximetry Medical Decision Making - Medical Decision Making Was pt. sent in by a medical professional or institution ([facility], ASTRONAUT M[employer]ION SPECIALIST, urgent care, hospital, or long term...) When possible be specific @ -[place] Did you speak to anyone other than the patient for history (EMS, parent, family, police, friend...)? What history was obtained from this source @ -Spoke to nurse who provided history from EMS. For further details please see HPI. Spoke to the sister who provided additional history for further details please see HPI. Did you review nursing and triage notes (agree or disagree)? Why? @ -I reviewed and agree with nursing and triage notes Were old charts reviewed (outside hosp., previous admission, EMS record, old EKG, old radiological studies, urgent care reports/EKG's, long term records)? Report findings @ -No old charts were reviewed Differential Diagnosis (chest pain, altered mental status, abdominal pain women, abdominal pain men, vaginal bleeding, weakness, fever, dyspnea, syncope, headache, dizziness, GI bleed, back pain, seizure, CVA, palpatations, mental health, musculoskeletal)? @ -Differential Altered Mental Status: Hypoglycemia, DKA, hypercapnia, ETOH, overdose, CO poisoning, trauma, myxedema coma, HTN encephalopathy, infection, encephalitis, psychosis, intercranial hemorrhage, hepatic encephalopathy, meningitis, CVA, this is not meant to be an all-inclusive list EKG interpreted by me (3pts min.). @ -As above X-rays interpreted by me (1pt min.). @ -Chest x-ray shows no acute process. CT interpreted by me (1pt min.). @ -CT brain shows no evidence of acute process. U/S interpreted by me (1pt. min.). @ -None done What testing was considered but not performed or refused? (CT, X-rays, U/S, labs)? Why? @ -None What meds were considered but not given or refused? Why? @ -None Did you discuss the management of the patient with other professionals (professionals i.e. , PA, ASTR[employer]AUT [employer] SPECIALIST, lab, RT, psych nurse, social work lecturer, tour manager, teacher, transit authority police officer, machine adjuster leader case trim)? Give summary @ -No Was smoking cessation discussed for >3mins.? @ -No Was critical care preformed (if so, how long)? @ -No Were there social determinants of health that impacted care today? How? (Homelessness, low income, unemployed, alcoholism, drug addiction, transportation, low edu. Level, literacy, decrease access to med. care, half-way, rehab)? @ -No Was there de-escalation of care discussed even if they declined (Discuss DNR or withdrawal of care, Hospice)? DNR status @ -No What co-morbidities impacted this encounter? (DM, HTN, Smoking, COPD, CAD, Cancer, CVA, ARF, Chemo, Hep., AIDS, mental health diagnosis, sleep apnea, morbid obesity)? @ -None Was patient admitted / discharged? Hospital course, mention meds given and r oute, prescriptions, significant lab abnormalities, going to OR and other pertinent info. @ -Admission. Laboratory studies reveal an elevated white blood count at 14.7, comes to panel significant for elevated BUN at 39, lactic acid 1.4, troponin elevated at 0.155. UA consistent with UTI. Vital signs show tachycardia 130 bpm, febrile at 102.7. Patient meeting sepsis criteria. [place] body weight 66 kg. Given 2 L bolus here in the ED. Blood culture and urine culture is pendi ng. No ulceration noted on exam. Patient will be started on IV antibiotics and admitted with consults to infectious disease and cardiology. Undiagnosed new problem with uncertain prognosis? @ -No Drug Therapy requiring intensive monitoring for toxicity (Heparin, Nitro, Insulin, Cardizem)? @ -No Were any procedures done? @ -No Diagnosis/symptom? @ -UTI, sepsis, elevated troponin, MOUNA Acute, or Chronic, or Acute on Chronic? @ -Acute Uncomplicated (without systemic symptoms) or Complicated (systemic symptoms)? @ -Complicated Side effects of treatment? @ -No Exacerbation, Progression, or Severe Exacerbation? @ -No Poses a threat to life or bodily function? How? (Chest pain, [place], [place], pneumonia, PE, COPD, DKA, ARF, appy, cholecystitis, CVA, Diverticulitis, Homicidal, Suic idal, threat to staff... and all critical care pts) @ -Yes, sepsis, elevated troponin - Lab Data Result diagrams: 05/13/23 11:46 05/13/23 11:53 Lab Results 05/13/23 05/13/23 05/13/23 Range/Units 11:46 11:53 11:53 WBC 14.7 H (3.8-10.6) k/uL RBC 4.75 (4.30-5.90) m/uL Hgb 13.2 (13.0-17.5) gm/dL Hct 40.7 (39.0-53.0) % MCV 85.7 (80.0-100.0) fL MCH 27.7 (25.0-35.0) pg MCHC 32.3 (31.0-37.0) g/dL RDW 15.0 (11.5-15.5) % Plt Count 248 (150-450) k/uL MPV 9.1 Neutrophils % 88 % Lymphocytes % 2 % Monocytes % 7 % Eosinophils % 1 % Basophils % 0 % Neutrophils # 13.0 H (1.3-7.7) k/uL Lymphocytes # 0.3 L (1.0-4.8) k/uL Monocytes # 1.1 H (0-1.0) k/uL Eosinophils # 0.1 (0-0.7) k/uL Basophils # 0.0 (0-0.2) k/uL PT 10.4 (9.0-12.0) sec INR 1.0 (<1.2) APTT 23.9 (22.0-30.0) sec Sodium 136 L (137-145) mmol/L Potassium 4.9 (3.5-5.1) mmol/L Chloride 104 (98-107) mmol/L Carbon Dioxide 21 L (22-30) mmol/L Anion Gap 11 mmol/L BUN 39 H (9-20) mg/dL Creatinine 1.01 (0.66-1.25) mg/dL Est GFR (CKD-EPI)AfAm >90 (>60 ml/min/1.73 sqM) Est GFR (CKD-EPI)NonAf 79 (>60 ml/min/1.73 sqM) Glucose 154 H (74-99) mg/dL Plasma Lactic Acid [place] (0.7-2.0) mmol/L Calcium 8.0 L (8.4-10.2) mg/dL Total Bilirubin 0.8 (0.2-1.3) mg/dL AST 42 (17-59) U/L ALT 30 (4-49) U/L Alkaline Phosphatase 75 (38-126) U/L Ammonia (<30) umol/L Troponin I (0.000-0.034) ng/mL Total Protein 6.7 (6.3-8.2) g/dL Albumin 3.2 L (3.5-5.0) g/dL Urine Color Urine Appearance (Clear) Urine pH (5.0-8.0) Ur Specific [place] (1.001-1.035) Urine Protein (Negative) Urine Glucose (UA) (Negative) Urine Ketones (Negative) Urine Blood (Negative) Urine Nitrite (Negative) Urine Bilirubin (Negative) Urine Urobilinogen (<2.0) mg/dL Ur Leukocyte Esterase (Negative) Urine RBC (0-5) /hpf Urine WBC (0-5) /hpf Urine Bacteria (None) /hpf Urine Mucus (None) /hpf 05/13/23 05/13/23 05/13/23 Range/Units 11:53 11:53 12:10 WBC (3.8-10.6) k/uL RBC (4.30-5.90) m/uL Hgb (13.0-17.5) gm/dL Hct (39.0-53.0) % MCV (80.0-100.0) fL MCH (25.0-35.0) pg MCHC (31.0-37.0) g/dL RDW (11.5-15.5) % Plt Count (150-450) k/uL MPV Neutrophils % % Lymphocytes % % Monocytes % % Eosinophils % % Basophils % % Neutrophils # (1.3-7.7) k/uL Lymphocytes # (1.0-4.8) k/uL Monocytes # (0-1.0) k/uL Eosinophils # (0-0.7) k/uL Basophils # (0-0.2) k/uL PT (9.0-12.0) sec INR (<1.2) APTT (22.0-30.0) sec Sodium (137-145) mmol/L Potassium (3.5-5.1) mmol/L Chloride (98-107) mmol/L Carbon Dioxide (22-30) mmol/L Anion Gap mmol/L BUN (9-20) mg/dL Creatinine (0.66-1.25) mg/dL Est GFR (CKD-EPI)AfAm (>60 ml/min/1.73 sqM) Est GFR (CKD-EPI)NonAf (>60 ml/min/1.73 sqM) Glucose (74-99) mg/dL Plasma Lactic Acid [place] 1.4 (0.7-2.0) mmol/L Calcium (8.4-10.2) mg/dL Total Bilirubin (0.2-1.3) mg/dL AST (17-59) U/L ALT (4-49) U/L Alkaline Phosphatase (38-126) U/L Ammonia 21 (<30) umol/L Troponin I 0.155 H* (0.000-0.034) ng/mL Total Protein (6.3-8.2) g/dL Albumin (3.5-5.0) g/dL Urine Color Yellow Urine Appearance Cloudy (Clear) Urine pH 7.5 (5.0-8.0) Ur Specific [place] 1.014 (1.001-1.035) Urine Protein 1+ H (Negative) Urine Glucose (UA) Negative (Negative) Urine Ketones Negative (Negative) Urine Blood Small H (Negative) Urine Nitrite Negative (Negative) Urine Bilirubin Negative (Negative) Urine Urobilinogen <2.0 (<2.0) mg/dL Ur Leukocyte Esterase Large H (Negative) Urine RBC 3 (0-5) /hpf Urine WBC 77 H (0-5) /hpf Urine Bacteria Occasional H (None) /hpf Urine Mucus Rare H (None) /hpf - EKG Data EKG Comments: EKG shows sinus tach at 124 beats for minute with nonspecific ST and T-wave changes. MT 152, QRS 96, QT/QTC 292/366. Disposition Clinical Impression: Sepsis, Elevated troponin, MOUNA (acute kidney injury) Disposition: ADMITTED IP TO THIS HOSP Time of Disposition: 13:01
[2023-05-13 12:08] LABS: Partial Thromboplastin Time 23.9 sec (22.0-30.0); Prothrombin Time 10.4 sec (9.0-12.0)
[2023-05-13 12:10] LABS: Lactic Acid, Venous 1.4 mmol/L (0.7-2.0)
[2023-05-13 12:11] LABS: ALT 30 U/L (4-49); African American GFR (CKD) >90 (>60 ml/min/1.73 sqM); Anion Gap 11 mmol/L; Blood Urea Nitrogen 39 mg/dL (9-20); Carbon Dioxide 21 mmol/L (22-30); Chloride 104 mmol/L (98-107); Glucose 154 mg/dL (74-99); Non-African American GFR(CKD) 79 (>60 ml/min/1.73 sqM); Sodium 136 mmol/L (137-145); Total Bilirubin 0.8 mg/dL (0.2-1.3)
--- NOTE | 2023-05-13 12:15 | XR ---
Patient EXAMINATION TYPE: XR chest 2V DATE OF EXAM: 05/13/2023 COMPARISON: 09/30/2022 HISTORY: Shortness of breath TECHNIQUE: Frontal and lateral views of the chest are obtained. FINDINGS: Scattered senescent parenchymal changes noted. No evidence for infiltrate. Basilar linear atelectasis. Heart size is stable. Mediastinal structures are stable and grossly unremarkable. No evidence for hilar prominence. Degenerative changes dorsal spine. IMPRESSION: 1. No evidence for acute pulmonary disease.
[2023-05-13 12:21] LABS: Potassium 4.9 mmol/L (3.5-5.1)
[2023-05-13 12:22] LABS: AST 42 U/L (17-59); Albumin 3.2 g/dL (3.5-5.0); Alkaline Phosphatase 75 U/L (38-126); Total Protein 6.7 g/dL (6.3-8.2)
--- NOTE | 2023-05-13 12:36 | CT ---
I EXAMINATION TYPE: CT brain wo con DATE OF EXAM: 05/13/2023 COMPARISON: 07/04/2020 HISTORY: AMS, possible sepsis CT DLP: 1202.[address] of the brain was performed. The ventricles, basal cisterns and sulci overlying the cerebral convexities demonstrate mild enlargem ent. There is no evidence for intracranial hemorrhage or sulcal effacement. There is decreased attenuation about the periventricular white matter and deep white matter of both c erebral hemispheres, compatible with chronic small vessel ischemia. Differential diagnosis does inclu de demyelination. No mass effects are seen.No midline shift. Again noted is right-sided cerebellopontine cistern angle arachnoid cyst. Osseous calvarium is intact. If symptoms persist consider MRI. IMPRESSION: 1. Age related atrophic and chronic small vessel ischemic change without acute intracranial process s een at this time.
[2023-05-13] MEDS ORDERED: IBUPROFEN 400 MG TAB PO PRN (13:08)
[2023-05-13] MEDS ORDERED: ONDANSETRON 4 MG/2 ML VIAL IVP PRN (13:08)
[2023-05-13] MEDS ORDERED: NALOXONE 0.4 MG/ML 1 ML VIAL IV PRN (13:08)
[2023-05-13 13:27] LABS: Appearance,Urine Cloudy (Clear); Bacteria,Urine Occasional /hpf; Bilirubin,Urine Negative (Negative); Blood,Urine Small (Negative); Glucose,Urine (UA) Negative (Negative); Ketones,Urine Negative (Negative); Leukocyte Esterase,Urine Large (Negative); Mucus,Urine Rare /hpf; Nitrite,Urine Negative (Negative); PH, Urine 7.5 (5.0-8.0); Protein,Urine 1+ (Negative); RBC,Urine 3 /hpf (0-5); Specific Gravity,Urine 1.014 (1.001-1.035); Urobilinogen,Urine <2.0 mg/dL (<2.0); WBC,Urine 77 /hpf (0-5)
[2023-05-13 13:28] LABS: Color,Urine Yellow
[2023-05-13] MEDS: ERTAPENEM 1 GM in SODIUM CHLORIDE 0.9% 50 ML IVPB SCH (14:04)
--- NOTE | 2023-05-13 15:16 | P.HPIM ---
History of Present Illness H&P Date: 05/13/23 Patient is a shelter resident 61-year-old male with history of multiple sclerosis, chronic Stein catheter, seizure disorder, bedbound, chronic contractures, PEG tube dependent, presenting with worsening mentation. Per report, his Stein catheter has not been exchange for about 6 weeks. Normally his baseline is him being able to respond to some commands. In the ED, temperature was 102.7, pulse 1:30, respiratory rate 22, blood pressure 148/80, saturating at 94% on room air. WBC 14.7, hemoglobin 13.2, sodium 136, bicarb 21, BUN 39, creatinine 1.01, lactate 4, troponin 0.155. Chest x-ray shows poor respiratory effort, no significant opacity. Head CT shows no acute process. Urinalysis showed large leukocyte esterase Patient admitted for sepsis likely secondary to urinary tract infection. ID consulted. Started on ertapenem per ID. Pertinent positives and negatives as discussed in HPI, a complete review of systems was performed and all other systems are negative. Patient seen and examined at bedside. Vital signs reviewed General: nontoxic, no distress, appears at stated age, nonverbal Derm: warm, dry, PEG tube site appears clean, dry Head: atraumatic, normocephalic, symmetric Eyes: EOMI, no lid lag, anicteric sclera, pupils equal round reactive to light ENT: Nose and ears atraumatic Neck: No thyromegaly, supple Mouth: no lip lesion, mucus membranes moist Cardiovascular: S1S2 reg, no murmur, no edema Lungs: Bilateral rhonchi, no rales, no wheeze, no accessory muscle use Abdominal: soft, nontender to palpation, no guarding, no appreciable organom egaly Neuro: Severe contractures Psych: Nonverbal Assessment/Plan: Sepsis secondary to urinary tract infection Acute metabolic encephalopathy Elevated troponin History of dementia History of MS PEG tube dependent Seizure disorder -Blood cultures, urine cultures -Stein catheter exchange -ID consulted, started on ertapenem -Was given 2 L of normal saline in the ED, continue normal saline at 100 mL an hour. -Elevated troponin, likely demand ischemia. -EKG independently interpreted, shows sinus tachycardia, nonspecific ST-T wave changes -Cardiology consulted The patient is admitted with an anticipated greater than 2 midnight stay as inpatient status for evaluation of sepsis. Surrogate decision-maker: DPOA CODE STATUS: Full code DVT prophylaxis: Lovenox Anticipated discharge date: Pending clinical course Anticipated discharge place: Pending clinical course A total of 65 minutes was spent on the care of this complex patient more than 50% of the time was spent in counseling and care coordination. Past Medical History Past Medical History: Deep Vein Thrombosis (DVT), GERD/Reflux, Hypertension, Mus culoskeletal Disorder, Neurologic Disorder, Pneumonia, Seizure Disorder, Skin Disorder Additional Past Medical History / Comment(s): Pt diagnosed with MS at the age of 39 yrs, seizure/pneumonia/UTI with sepsis/respirtory failure/vented, cognitive impairment, sister states when he is feeling well he could speak a few words/nod head appropriately/give thumbs up/roll eyes but when ill is nonverbal, pt has dysphagia/NPO with peg tube, contractures, last seizure 07/2020, trigeminal neuralgia, dysarthria/anarthria/neurogenic bladder with IDC-UTIs/sepsis, multiple pneumonias, recent seizure-last one 07/03/20, incontinent of stool, pt has had decubitus ulcer coccyx-sister unsure of skin condition at this time, past anemia r/t heparin/epistaxiis which involved nasal packing/transfusions, DVT bilateral arms, hypoxia, oxygen at 2L/NC, L femoral head fracture History of Any Multi-Drug Resistant Organisms: ESBL, MRSA, Other MDRO Date of last positivie culture/infection: 03/09/21-MRSA; 11/23/19 ESBL-E.coli MDRO Source:: Abdomen-Peg site MRSA; Urine -ESBL Past Surgical History: Tonsillectomy Additional Past Surgical History / Comment(s): Gastrostomy, peg tube, I&D coccyx decubitius, bronchoscopy, bilateral lasik eye surgery. Past Anesthesia/Blood Transfusion Reactions: No Reported Reaction Additional Past Anesthesia/Blood Transfusion Reaction / Comment(s): Pt has received blood in past without reaction. Past Psychological History: Depression Smoking Status: Never smoker Past Alcohol Use History: None Reported Past Drug Use History: None Reported - Past Family History Father Family Medical History: Myocardial Infarction ([place]) Mother Family Medical History: Hypertension, Myocardial Infarction ([place]) Additional Family Medical History / Comment(s): Mother of a [place] at the age of 73 yrs. Medications and Allergies Home Medications Medication Instructions Recorded Confirmed Type Ipratropium-Albuterol Nebulize 3 ml INHALATION RT-Q4H 12/16/19 05/13/23 History [Duoneb 0.5 mg-3 mg/3 ml Soln] Aspirin 81 mg PEG/G-TUBE DAILY@0900 11/27/20 05/13/23 History Acetaminophen Tab [Tylenol] 650 mg PEG/G-TUBE Q4H PRN 06/13/21 05/13/23 History Metoprolol Tartrate [Lopressor] 50 mg PEG/G-TUBE BID@0900,2100 06/13/21 05/13/23 History carBAMazepine [carBAMazepine Oral 100 mg PEG/G-TUBE 07/02/21 05/13/23 History Susp] TID@0600,1400,2200 Amantadine Hcl Solution 50mg/5ml 100 mg PEG/G-TUBE DAILY@0900 12/22/21 05/13/23 History Lactulose 20 gm PEG/G-TUBE TID@0900,1700,2100 01/03/22 05/13/23 History Scopolamine [Scopolamine 1 MG/72 1 patch TRANSDERM Q72H 01/03/22 05/13/23 History HR patch] Baclofen [Lioresal] 5 mg PEG/G-TUBE TID@0600,1400,2200 05/03/22 05/13/23 Rx tab Lacosamide [Vimpat] 150 mg PEG/G-TUBE BID@0900,2100 #4 05/03/22 05/13/23 Rx tab oxyBUTYnin chloride 5 mg PEG/G-TUBE TID@0600,1400,2200 12/19/22 05/13/23 History Famotidine [Pepcid] 20 mg PEG/G-TUBE HS@2100 05/13/23 05/13/23 History Allergies Allergy/AdvReac Type Severity Reaction Status Date / Time meropenem [From Merrem] Allergy Rash/Hives Verified 05/13/23 12:04 ceftolozane [From Zerbaxa] AdvReac Rapid Verified 05/13/23 12:04 Heart Rate tazobactam [From Zerbaxa] AdvReac Rapid Verified 05/13/23 12:04 Heart Rate Physical Exam Vitals: Vital Signs Temp Pulse Resp BP Pulse Ox 05/13/23 14:07 99.7 F H 103 H 28 H 90/61 94 L 05/13/23 11:10 102.7 F H 130 H 22 148/80 94 L Intake and Output 05/13/23 05/13/23 05/13/23 06:59 14:59 22:59 Other: Weight 90.718 kg Results CBC & Chem 7: 05/13/23 11:46 05/13/23 11:53 Labs: Abnormal Lab Results - Last 24 Hours (Table) 05/13/23 05/13/23 05/13/23 Range/Units 11:46 11:53 11:53 WBC 14.7 H (3.8-10.6) k/uL Neutrophils # 13.0 H (1.3-7.7) k/uL Lymphocytes # 0.3 L (1.0-4.8) k/uL Monocytes # 1.1 H (0-1.0) k/uL Sodium 136 L (137-145) mmol/L Carbon Dioxide 21 L (22-30) mmol/L BUN 39 H (9-20) mg/dL Glucose 154 H (74-99) mg/dL Calcium 8.0 L (8.4-10.2) mg/dL Troponin I 0.155 H* (0.000-0.034) ng/mL Albumin 3.2 L (3.5-5.0) g/dL Urine Protein (Negative) Urine Blood (Negative) Ur Leukocyte Esterase (Negative) Urine WBC (0-5) /hpf Urine Bacteria (None) /hpf Urine Mucus (None) /hpf 05/13/23 Range/Units 12:10 WBC (3.8-10.6) k/uL Neutrophils # (1.3-7.7) k/uL Lymphocytes # (1.0-4.8) k/uL Monocytes # (0-1.0) k/uL Sodium (137-145) mmol/L Carbon Dioxide (22-30) mmol/L BUN (9-20) mg/dL Glucose (74-99) mg/dL Calcium (8.4-10.2) mg/dL Troponin I (0.000-0.034) ng/mL Albumin (3.5-5.0) g/dL Urine Protein 1+ H (Negative) Urine Blood Small H (Negative) Ur Leukocyte Esterase Large H (Negative) Urine WBC 77 H (0-5) /hpf Urine Bacteria Occasional H (None) /hpf Urine Mucus Rare H (None) /hpf
[2023-05-13] MEDS: SODIUM CHLORIDE 0.9% 1,000 ML IV SCH (15:53)
[2023-05-13] MEDS: IPRATROPIUM-ALBUTEROL 3 ML NEB INHALATION SCH ×2 (16:27→21:09)
[2023-05-13] MEDS ORDERED: ASPIRIN 325 MG TAB PO STA (16:45)
[2023-05-13] MEDS: LACTULOSE 20 GM/30 ML CUP PEG/G-TUBE SCH ×2 (17:23→21:36)
[2023-05-13] MEDS: SCOPOLAMINE 1 MG/72 HR PATCH TRANSDERM SCH (17:23)
[2023-05-13] MEDS: HYDROmorphone 0.5 MG/0.5 ML SYRINGE IVP PRN ×2 (17:23→21:37)
[2023-05-13] MEDS: BACLOFEN 10 MG TAB PEG/G-TUBE SCH (21:36)
[2023-05-13] MEDS: FAMOTIDINE 20 MG TAB PEG/G-TUBE SCH (21:37)
[2023-05-13] MEDS: LACOSAMIDE 150 MG TABLET PEG/G-TUBE SCH (21:37)
[2023-05-13] MEDS: METOPROLOL TARTRATE 50 MG TAB PEG/G-TUBE SCH (21:37)
--- NOTE | 2023-05-13 22:45 | P.CONS ---
History of Present Illness - Reason for Consult Consult date: 05/13/23 Sepsis Requesting physician: Aamir Ybarra - Chief Complaint Decreased urine output and mental status changes x 2 days - History of Present Illness Patient is a 62-year-old male with a past medical history significant for MS seizure disorder in this patient who is bedbound [facility] resident history of recurrent UTI and pneumonia patient has been sent to the ER for evaluation of decreased urine output over the last 2 days and altered mental status that was noticed today patient apparently per the ER note documentation oriented x2 however the patient has been less responsive lately, no clear history of nausea or any vomiting and no history of any respiratory distress patient on presentation to the hospital did have a fever of 102.7 F the patient was not hypoxic or need for supplemental oxygen patient was tachycardic with a heart rate of 130 not hypotensive or need for pressor support, patient did have vital of 14.7 with a left shift creatinine has been normal troponin is elevated urine was positive large leukocyte esterase more than 77 WBC because of his multiple antibiotic allergies infectious he was consulted for further management of antibiotic therapy most information has been obtained from review the chart talking to nursing staff as the patient was not able to provide any history Review of Systems Positive points has been mentioned in HPI complete review could not be obtained because of his underlying mental status Past Medical History Past Medical History: Deep Vein Thrombosis (DVT), GERD/Reflux, Hypertension, Musculoskeletal Disorder, Neurologic Disorder, Pneumonia, Seizure Disorder, Skin Disorder Additional Past Medical History / Comment(s): Pt diagnosed with MS at the age of 39 yrs, seizure/pneumonia/UTI with sepsis/respirtory failure/vented, cognitive impairment, sister states when he is feeling well he could speak a few words/nod head appropriately/give thumbs up/roll eyes but when ill is nonverbal, pt has dysphagia/NPO with peg tube, contractures, last seizure 07/2020, trigeminal neuralgia, dysarthria/anarthria/neurogenic bladder with IDC-UTIs/sepsis, multiple pneumonias, recent seizure-last one 07/03/20, incontinent of stool, pt has had decubitus ulcer coccyx-sister unsure of skin condition at this time, past anemia r/t heparin/epistaxiis which involved nasal packing/transfusions, DVT bilateral arms, hypoxia, oxygen at 2L/NC, L femoral head fracture History of Any Multi-Drug Resistant Organisms: ESBL, MRSA, Other MDRO Year Discovered:: 03/09/21-MRSA; 11/23/19 ESBL-E.coli MDRO Source:: Abdomen-Peg site MRSA; Urine -ESBL Past Surgical History: Tonsillectomy Additional Past Surgical History / Comment(s): Gastrostomy, peg tube, I&D coccyx decubitius, bronchoscopy, bilateral lasik eye surgery. Past Anesthesia/Blood Transfusion Reactions: No Reported Reaction Additional Past Anesthesia/Blood Transfusion Reaction / Comm: Pt has received blood in past without reaction. Past Psychological History: Depression Smoking Status: Never smoker Past Alcohol Use History: None Reported Past Drug Use History: None Reported - Past Family History Father Family Medical History: Myocardial Infarction ([place]) Mother Family Medical History: Hypertension, Myocardial Infarction ([place]) Additional Family Medical History / Comment(s): Mother of a [place] at the age of 73 yrs. Medications and Allergies Home Medications Medication Instructions Recorded Confirmed Type Ipratropium-Albuterol Nebulize 3 ml INHALATION RT-Q4H 12/16/19 05/13/23 History [Duoneb 0.5 mg-3 mg/3 ml Soln] Aspirin 81 mg PEG/G-TUBE DAILY@0900 11/27/20 05/13/23 History Acetaminophen Tab [Tylenol] 650 mg PEG/G-TUBE Q4H PRN 06/13/21 05/13/23 History Metoprolol Tartrate [Lopressor] 50 mg PEG/G-TUBE BID@0900,2100 06/13/21 05/13/23 History carBAMazepine [carBAMazepine Oral 100 mg PEG/G-TUBE 07/02/21 05/13/23 History Susp] TID@0600,1400,2200 Amantadine Hcl Solution 50mg/5ml 100 mg PEG/G-TUBE DAILY@0900 12/22/21 05/13/23 History Lactulose 20 gm PEG/G-TUBE TID@0900,1700,2100 01/03/22 05/13/23 History Scopolamine [Scopolamine 1 MG/72 1 patch TRANSDERM Q72H 01/03/22 05/13/23 History HR patch] Baclofen [Lioresal] 5 mg PEG/G-TUBE TID@0600,1400,2200 05/03/22 05/13/23 Rx tab Lacosamide [Vimpat] 150 mg PEG/G-TUBE BID@0900,2100 #4 05/03/22 05/13/23 Rx tab oxyBUTYnin chloride 5 mg PEG/G-TUBE TID@0600,1400,2200 12/19/22 05/13/23 History Famotidine [Pepcid] 20 mg PEG/G-TUBE HS@2100 05/13/23 05/13/23 History Atorvastatin [Lipitor] 40 mg PO DAILY tab 05/19/23 Rx Ertapenem [INVanz] 1 gm IVPB DAILY@1200 9 Days each 05/19/23 Rx Allergies Allergy/AdvReac Type Severity Reaction Status Date / Time meropenem [From Merrem] Allergy Rash/Hives Verified 05/13/23 12:04 ceftolozane [From Zerbaxa] AdvReac Rapid Verified 05/13/23 12:04 Heart Rate tazobactam [From Zerbaxa] AdvReac Rapid Verified 05/13/23 12:04 Heart Rate Physical Exam Vitals: Vital Signs Temp Pulse Resp BP Pulse Ox 05/13/23 11:10 102.7 F H 130 H 22 148/80 94 L Intake and Output 05/12/23 05/13/23 05/13/23 22:59 06:59 14:59 Other: Weight 90.718 kg GENERAL DESCRIPTION: Middle-aged male lying in bed, no distress. No tachypnea or accessory muscle of respiration use. HEENT: Shows Pallor , no scleral icterus. Oral mucous membrane is dry. NECK: Trachea central, no thyromegaly. LUNGS: Unlabored breathing. Coarse breath sounds bilaterally HEART: S1, S2, regular rate and rhythm. No loud murmur ABDOMEN: Soft, no tenderness , guarding or rigidity, no organomegaly EXTREMITIES: No edema of feet. SKIN: No rash, no masses palpable. NEUROLOGICAL: The patient is lethargic nonverbal orientation could not be determined Results CBC & Chem 7: 05/16/23 08:36 05/17/23 08:22 Labs: Abnormal Lab Results - Last 24 Hours (Table) 05/13/23 05/13/23 05/13/23 Range/Units 11:46 11:53 11:53 WBC 14.7 H (3.8-10.6) k/uL Neutrophils # 13.0 H (1.3-7.7) k/uL Lymphocytes # 0.3 L (1.0-4.8) k/uL Monocytes # 1.1 H (0-1.0) k/uL Sodium 136 L (137-145) mmol/L Carbon Dioxide 21 L (22-30) mmol/L BUN 39 H (9-20) mg/dL Glucose 154 H (74-99) mg/dL Calcium 8.0 L (8.4-10.2) mg/dL Troponin I 0.155 H* (0.000-0.034) ng/mL Albumin 3.2 L (3.5-5.0) g/dL Urine Protein (Negative) Urine Blood (Negative) Ur Leukocyte Esterase (Negative) Urine WBC (0-5) /hpf Urine Bacteria (None) /hpf Urine Mucus (None) /hpf 05/13/23 Range/Units 12:10 WBC (3.8-10.6) k/uL Neutrophils # (1.3-7.7) k/uL Lymphocytes # (1.0-4.8) k/uL Monocytes # (0-1.0) k/uL Sodium (137-145) mmol/L Carbon Dioxide (22-30) mmol/L BUN (9-20) mg/dL Glucose (74-99) mg/dL Calcium (8.4-10.2) mg/dL Troponin I (0.000-0.034) ng/mL Albumin (3.5-5.0) g/dL Urine Protein 1+ H (Negative) Urine Blood Small H (Negative) Ur Leukocyte Esterase Large H (Negative) Urine WBC 77 H (0-5) /hpf Urine Bacteria Occasional H (None) /hpf Urine Mucus Rare H (None) /hpf Assessment and Plan (1) Sepsis Status: Acute Code(s): A41.9 - SEPSIS, UNSPECIFIED ORGANISM SNOMED Code(s): 86912305 (2) UTI (urinary tract infection) due to urinary indwelling catheter Status: Acute Code(s): T83.511A - I/I REACT D/T INDWELLING URETHRAL CATHETER, INIT; N39.0 - URINARY TRACT INFECTION, SITE NOT SPECIFIED SNOMED Code(s): 322940824 Plan: 1patient presented hospital with sepsis in this patient with a fever tachycardia elevated white count source likely catheter associated tract infection in this patient with a history of recurrent UTIs and exposure to antibiotics will need to cover for resistant gram-negative to be likely pathogen 2-patient with multiple antibiotic allergies that would limit the number of antibiotics safe to use 3-Stien catheter has been changed 4-we will start the patient on Invanz 1 g daily while waiting for the culture to finalize We will follow on clinical condition and cultures to further adjust medication if needed Thank you for this consultation we will follow the patient along with you Dictation was produced using [employer] dictation software. please excuse any grammatical, word or spelling errors. Time with Patient: Greater than 30
[2023-05-14] MEDS: IPRATROPIUM-ALBUTEROL 3 ML NEB INHALATION SCH ×6 (00:16→20:58)
[2023-05-14] MEDS: ACETAMINOPHEN TAB 325 MG TAB PO PRN ×3 (05:44→23:57)
[2023-05-14] MEDS: BACLOFEN 10 MG TAB PEG/G-TUBE SCH ×3 (05:45→20:56)
[2023-05-14 08:06] LABS: Basophils % (A) 0 %; Eosinophils # (A) 0.1 k/uL (0-0.7); Eosinophils % (A) 1 %; HCT 32.8 % (39.0-53.0); HGB 10.7 gm/dL (13.0-17.5); Hypochromasia Slight; Lymphocytes # (A) 0.4 k/uL (1.0-4.8); Lymphocytes % (A) 5 %; MCH 28.4 pg (25.0-35.0); MCHC 32.7 g/dL (31.0-37.0); Mean Platelet Volume 8.5; Monocytes # (A) 0.5 k/uL (0-1.0); Monocytes % (A) 7 %; Neutrophils # (A) 6.4 k/uL (1.3-7.7); Neutrophils % (A) 85 %; Platelet Count 179 k/uL (150-450); RBC 3.77 m/uL (4.30-5.90); WBC 7.6 k/uL (3.8-10.6)
[2023-05-14 08:37] LABS: African American GFR (CKD) >90 (>60 ml/min/1.73 sqM); Anion Gap 8 mmol/L; Blood Urea Nitrogen 25 mg/dL (9-20); Calcium 7.7 mg/dL (8.4-10.2); Carbon Dioxide 20 mmol/L (22-30); Chloride 110 mmol/L (98-107); Glucose 128 mg/dL (74-99); Non-African American GFR(CKD) >90 (>60 ml/min/1.73 sqM); Potassium 4.1 mmol/L (3.5-5.1); Sodium 138 mmol/L (137-145)
[2023-05-14] MEDS: LACTULOSE 20 GM/30 ML CUP PEG/G-TUBE SCH ×3 (08:52→20:56)
[2023-05-14] MEDS: METOPROLOL TARTRATE 50 MG TAB PEG/G-TUBE SCH ×2 (08:52→20:56)
[2023-05-14] MEDS: ASPIRIN 81 MG PEG/G-TUBE SCH (08:52)
[2023-05-14] MEDS: LACOSAMIDE 150 MG TABLET PEG/G-TUBE SCH ×2 (08:52→20:56)
[2023-05-14] MEDS: ERTAPENEM 1 GM in SODIUM CHLORIDE 0.9% 50 ML IVPB SCH (11:29)
--- NOTE | 2023-05-14 12:42 | P.PN ---
Subjective Progress Note Date: 05/14/23 Hospital Course: 61-year-old male with history of multiple sclerosis, chronic Stein catheter, seizure disorder, bedbound, chronic contractures, PEG tube dependent, presenting with worsening mentation. In the ED, temperature was 102.7, pulse 1:30, respiratory rate 22, blood pressure 148/80, saturating at 94% on room air. WBC 14.7, hemoglobin 13.2, sodium 136, bicarb 21, BUN 39, creatinine 1.01, lactate 4, troponin 0.155. Chest x-ray shows poor respiratory effort, no significant opacity. Head CT shows no acute process. Urinalysis showed large leukocyte esterase Patient admitted for sepsis likely secondary to urinary tract infection. ID consulted. Started on ertapenem per ID. Subjective: Patient seen and examined at bedside. No acute events overnight. Still intermittently febrile. Pertinent positives and negatives as discussed above, a complete review of systems was performed and all other systems are negative. Vitals Signs Reviewed. General: nontoxic, no distress, appears at stated age, nonverbal Derm: warm, dry, PEG tube site appears clean, dry Head: atraumatic, normocephalic, symmetric Eyes: EOMI, no lid lag, anicteric sclera, pupils equal round reactive to light ENT: Nose and ears atraumatic Neck: No thyromegaly, supple Mouth: no lip lesion, mucus membranes moist Cardiovascular: S1S2 reg, no murmur, no edema Lungs: Bilateral rhonchi, no rales, no wheeze, no accessory muscle use Abdominal: soft, nontender to palpation, no guarding, no appreciable organomegaly Neuro: Severe contractures Psych: Nonverbal Data Reviewed Today: Pertinent Labs: WBC 7.6, hemoglobin 10.7, bicarb 20, creatinine 0.7, TSH 2.56 Imaging: No new imaging Assessment and Plan: Sepsis secondary to urinary tract infection Acute metabolic encephalopathy Elevated troponin History of dementia History of MS PEG tube dependent Seizure disorder -Blood cultures, urine cultures -Stein catheter exchanged on admission -ID following, on ertapenem -continue normal saline at 100 mL an hour. -Elevated troponin, likely demand ischemia -Cardiology consulted DVT ppx: sq heparin Code status: Anticipated discharge place: pending clinical course Anticipated discharge time: pending clinical course Objective - Vital Signs Vital signs: Vital Signs Temp 99.0 F 05/14/23 11:18 Pulse 84 05/14/23 11:44 Resp 30 H 05/14/23 11:18 BP 139/79 05/14/23 11:18 Pulse Ox 96 05/14/23 11:18 FiO2 Intake & Output 05/13/23 05/14/23 05/14/23 18:59 06:59 18:59 Output Total 806 795 2584 Balance -550 -500 -1500 Weight 90.718 kg Output: Urine 071 [id number] [id number] Other: Voiding Method Indwelling Catheter Indwelling Catheter Indwelling Catheter - Labs CBC & Chem 7: 05/14/23 07:43 05/14/23 07:43 Labs: Abnormal Lab Results - Last 24 Hours (Table) 05/13/23 05/13/23 05/13/23 Range/Units 12:10 15:31 18:53 RBC (4.30-5.90) m/uL Hgb (13.0-17.5) gm/dL Hct (39.0-53.0) % Lymphocytes # (1.0-4.8) k/uL Chloride (98-107) mmol/L Carbon Dioxide (22-30) mmol/L BUN (9-20) mg/dL Glucose (74-99) mg/dL Calcium (8.4-10.2) mg/dL Troponin I 0.222 H* 0.164 H* (0.000-0.034) ng/mL Urine Protein 1+ H (Negative) Urine Blood Small H (Negative) Ur Leukocyte Esterase Large H (Negative) Urine WBC 77 H (0-5) /hpf Urine Bacteria Occasional H (None) /hpf Urine Mucus Rare H (None) /hpf 05/14/23 05/14/23 Range/Units 07:43 07:43 RBC 3.77 L (4.30-5.90) m/uL Hgb 10.7 L (13.0-17.5) gm/dL Hct 32.8 L (39.0-53.0) % Lymphocytes # 0.4 L (1.0-4.8) k/uL Chloride 110 H (98-107) mmol/L Carbon Dioxide 20 L (22-30) mmol/L BUN 25 H (9-20) mg/dL Glucose 128 H (74-99) mg/dL Calcium 7.7 L (8.4-10.2) mg/dL Troponin I (0.000-0.034) ng/mL Urine Protein (Negative) Urine Blood (Negative) Ur Leukocyte Esterase (Negative) Urine WBC (0-5) /hpf Urine Bacteria (None) /hpf Urine Mucus (None) /hpf
--- NOTE | 2023-05-14 13:16 | P.CRDCN ---
History of Present Illness Consult date: 05/14/23 Reason for Consult (text): Elevated Troponins History of present illness: History of present illness: This is a 62 year old male with past medical history of DVT, hypertension, multiple sclerosis, seizure disorder, dementia, pneumonia, UTI, dysphagia with PEG tube, neurogenic bladder with chronic aggarwal catheter. 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 We have been asked to see the patient in consultation for abnormal troponins. Patient presented to the emergency center due to mental status changes and found to have fever and found to have tachycardia. Patient has had outpatient treatment for urinary tract infection. Patient is unable to answer questions or provide any information. Patient is known to be nonverbal. EKG sinus tachycardia at 124 bpm with nonspecific changes Chest x-ray: No acute change. CAT scan of the brain: Age-related atrophy and chronic small vessel ischemic change without acute intracranial process. WBC 14.7, hemoglobin 13.2, sodium 136, BUN 39 creatinine 1.01. Blood sugar 154. Troponin 0.155, 0.222, 0.164. TSH 2.56. Home cardiac medications: Aspirin 81 mg daily, Lopressor 50 mg twice daily Review Of Systems: At the time of my evaluation: Unable to obtain due to patient's mental status Physical examination: Gen: This is a 62-year-old male resting in bed. VS: reviewed HEENT: Head is atraumatic, normocephalic. Pupils equal, round. Sclerae is anicteric. LUNGS: Bilateral rhonchi. No intercostal retractions. HEART: Regular rate and rhythm. No murmur. EXTREMITIES: Bilateral pedal edema. No calf tenderness. NEUROLOGICAL: Patient is awake, alert and oriented x3. Assessment: Chronic myocardial injury with no evidence of acute ischemia by EKG, and no wall motion abnormalities on Echo in the past Urinary tract infection Multiple sclerosis Seizure disorder Dysphagia with PEG tube Neurogenic bladder with chronic Aggarwal catheter History of pneumonia History of DVT History of hypertension Plan: Patient with chronic ischemia with no evidence of acute ischemia Recommend medical treatment at this time, patient is not an interventional candidate, Continue Aspirin, Statin, Beta hali Unable to obtain 2-D echocardiogram and Doppler study due to patient contractures Further recommendations to follow based upon clinical course Thank you kindly for this consultation. Nurse practitioner note has been reviewed, I agree with documented findings and plan of care. Patient was seen and examined. Past Medical History Past Medical History: Deep Vein Thrombosis (DVT), GERD/Reflux, Hypertension, Musculoskeletal Disorder, Neurologic Disorder, Pneumonia, Seizure Disorder, Skin Disorder Additional Past Medical History / Comment(s): Pt diagnosed with MS at the age of 39 yrs, seizure/pneumonia/UTI with sepsis/respirtory failure/vented, cognitive impairment, sister states when he is feeling well he could speak a few words/nod head appropriately/give thumbs up/roll eyes but when ill is nonverbal, pt has dysphagia/NPO with peg tube, contractures, last seizure 07/2020, trigeminal neuralgia, dysarthria/anarthria/neurogenic bladder with IDC-UTIs/sepsis, multiple pneumonias, recent seizure-last one 07/03/20, incontinent of stool, pt has had decubitus ulcer coccyx-sister unsure of skin condition at this time, past anemia r/t heparin/epistaxiis which involved nasal packing/transfusions, DVT bilateral arms, hypoxia, oxygen at 2L/NC, L femoral head fracture History of Any Multi-Drug Resistant Organisms: ESBL, MRSA, Other MDRO Date of last positivie culture/infection: 03/09/21-MRSA; 11/23/19 ESBL-E.coli MDRO Source:: Abdomen-Peg site MRSA; Urine -ESBL Past Surgical History: Tonsillectomy Additional Past Surgical History / Comment(s): Gastrostomy, peg tube, I&D coccyx decubitius, bronchoscopy, bilateral lasik eye surgery. Past Anesthesia/Blood Transfusion Reactions: No Reported Reaction Additional Past Anesthesia/Blood Transfusion Reaction / Comment(s): Pt has received blood in past without reaction. Past Psychological History: Depression Smoking Status: Never smoker Past Alcohol Use History: None Reported Past Drug Use History: None Reported - Past Family History Father Family Medical History: Myocardial Infarction (DC) Mother Family Medical History: Hypertension, Myocardial Infarction (DC) Additional Family Medical History / Comment(s): Mother of a DC at the age of 73 yrs. Medications and Allergies Home Medications Medication Instructions Recorded Confirmed Type Ipratropium-Albuterol Nebulize 3 ml INHALATION RT-Q4H 12/16/19 05/13/23 History [Duoneb 0.5 mg-3 mg/3 ml Soln] Aspirin 81 mg PEG/G-TUBE DAILY@0900 11/27/20 05/13/23 History Acetaminophen Tab [Tylenol] 650 mg PEG/G-TUBE Q4H PRN 06/13/21 05/13/23 History Metoprolol Tartrate [Lopressor] 50 mg PEG/G-TUBE BID@0900,2100 06/13/21 05/13/23 History carBAMazepine [carBAMazepine Oral 100 mg PEG/G-TUBE 07/02/21 05/13/23 History Susp] TID@0600,1400,2200 Amantadine Hcl Solution 50mg/5ml 100 mg PEG/G-TUBE DAILY@0900 12/22/21 05/13/23 History Lactulose 20 gm PEG/G-TUBE TID@0900,1700,2100 01/03/22 05/13/23 History Scopolamine [Scopolamine 1 MG/72 1 patch TRANSDERM Q72H 01/03/22 05/13/23 History HR patch] Baclofen [Lioresal] 5 mg PEG/G-TUBE TID@0600,1400,2200 05/03/22 05/13/23 Rx tab Lacosamide [Vimpat] 150 mg PEG/G-TUBE BID@0900,2100 #4 05/03/22 05/13/23 Rx tab oxyBUTYnin chloride 5 mg PEG/G-TUBE TID@0600,1400,2200 12/19/22 05/13/23 History Famotidine [Pepcid] 20 mg PEG/G-TUBE HS@2100 05/13/23 05/13/23 History Allergies Allergy/AdvReac Type Severity Reaction Status Date / Time meropenem [From Merrem] Allergy Rash/Hives Verified 05/13/23 12:04 ceftolozane [From Zerbaxa] AdvReac Rapid Verified 05/13/23 12:04 Heart Rate tazobactam [From Zerbaxa] AdvReac Rapid Verified 05/13/23 12:04 Heart Rate Physical Exam Vitals: Vital Signs Temp Pulse Pulse Resp BP BP Pulse Ox 05/14/23 11:44 84 05/14/23 11:34 86 05/14/23 11:18 99.0 F 90 30 H 139/79 96 05/14/23 08:31 88 05/14/23 08:13 90 05/14/23 08:00 98.7 F 99 26 H 145/72 91 L 08/14/23 04:32 92 05/14/23 04:22 88 05/14/23 04:00 101.9 F H 116 H 20 151/91 94 L 05/14/23 02:00 94 20 05/14/23 00:26 96 05/14/23 00:16 94 05/14/23 00:00 97.4 F L 94 20 157/89 95 05/13/23 21:24 78 05/13/23 21:09 80 05/13/23 20:00 99.5 F 107 H 20 157/68 98 05/13/23 16:38 82 05/13/23 16:27 84 05/13/23 15:26 100.3 F H 95 20 109/68 98 05/13/23 14:50 96 20 110/69 96 05/13/23 14:07 99.7 F H 103 H 28 H 90/61 94 L Intake and Output 05/13/23 05/14/23 05/14/23 22:59 06:59 14:59 Output Total 794 374 1985 Balance -550 -500 -1500 Output: Urine 860 450 8402 Other: Voiding Method Indwelling Catheter Indwelling Catheter Indwelling Catheter Weight 90.718 kg Results 05/14/23 07:43 05/14/23 07:43 Cardiac Enzymes 05/13/23 05/13/23 Range/Units 15:31 18:53 Troponin I 0.222 H* 0.164 H* (0.000-0.034) ng/mL CBC 05/14/23 Range/Units 07:43 WBC 7.6 (3.8-10.6) k/uL RBC 3.77 L (4.30-5.90) m/uL Hgb 10.7 L (13.0-17.5) gm/dL Hct 32.8 L (39.0-53.0) % Plt Count 179 (150-450) k/uL Comprehensive Metabolic Panel 05/14/23 Range/Units 07:43 Sodium 138 (137-145) mmol/L Potassium 4.1 (3.5-5.1) mmol/L Chloride 110 H (98-107) mmol/L Carbon Dioxide 20 L (22-30) mmol/L BUN 25 H (9-20) mg/dL Creatinine 0.79 (0.66-1.25) mg/dL Glucose 128 H (74-99) mg/dL Calcium 7.7 L (8.4-10.2) mg/dL Current Medications Generic Name Dose Route Start Last Admin Trade Name Freq PRN Reason Stop Dose Admin Acetaminophen 650 mg 05/13/23 13:08 05/14/23 05:44 Acetaminophen Tab 325 Mg Tab PO 650 mg Q6HR PRN Administration Mild Pain or Fever > 100.5 Albuterol/Ipratropium 3 ml 05/13/23 16:00 05/14/23 11:33 Ipratropium-Albuterol 3 Ml Neb INHALATION 3 ml RT-Q4H LUPE Administration Amantadine HCl 100 mg 05/14/23 09:00 05/14/23 08:53 Amantadine Hcl 100 Mg/10 Ml Cup PEG/G-TUBE 100 mg DAILY@0900 LUPE Administration Aspirin 81 mg 05/14/23 09:00 05/14/23 08:52 Aspirin 81 Mg PEG/G-TUBE 81 mg DAILY@0900 LUPE Administration Baclofen 5 mg 05/13/23 22:00 05/14/23 05:45 Baclofen 10 Mg Tab PEG/G-TUBE 5 mg TID@0600,1400,2200 LUPE Administration Carbamazepine 100 mg 05/13/23 22:00 05/14/23 05:50 Carbamazepine Chew 100 Mg Chew PEG/G-TUBE 100 mg TID@0600,1400,2200 LUPE Administration Famotidine 20 mg 05/13/23 21:00 05/13/23 21:37 Famotidine 20 Mg Tab PEG/G-TUBE 20 mg HS@2100 LUPE Administration Heparin Sodium (Porcine) 5,000 unit 05/14/23 16:00 Heparin Sodium,Porcine 5,000 Unit/Ml 1 Ml Vial SQ Q8HR LUPE Hydromorphone HCl 0.5 mg 05/13/23 13:08 05/13/23 21:37 Hydromorphone 0.5 Mg/0.5 Ml Syringe IVP 0.5 mg Q3HR PRN Administration Moderate Pain (Scale 4 to 6) Sodium Chloride 1,000 mls @ 100 mls/hr 05/13/23 13:15 05/13/23 15:53 Saline 0.9% IV Not Given .Q10H LUPE Ertapenem 1 gm/ Sodium 50 mls @ 100 mls/hr 05/13/23 14:00 05/14/23 11:29 Chloride IVPB 100 mls/hr DAILY@1200 LUPE Administration Protocol Ibuprofen 400 mg 05/13/23 13:08 Ibuprofen 400 Mg Tab PO Q6HR PRN Mild Pain or Fever > 100.5 Lacosamide 150 mg 05/13/23 21:00 05/14/23 08:52 Lacosamide 150 Mg Tablet PEG/G-TUBE 150 mg BID@0900,2100 LUPE Administration Lactulose 20 gm 05/13/23 17:00 05/14/23 08:52 Lactulose 20 Gm/30 Ml Cup PEG/G-TUBE 20 gm TID@0900,1700,2100 LUPE Administration Metoprolol Tartrate 50 mg 05/13/23 21:00 05/14/23 08:52 Metoprolol Tartrate 50 Mg Tab PEG/G-TUBE 50 mg BID@0900,2100 LUPE Administration Naloxone HCl 0.2 mg 05/13/23 13:08 Naloxone 0.4 Mg/Ml 1 Ml Vial IV Q2M PRN Opioid Reversal Ondansetron HCl 4 mg 05/13/23 13:08 Ondansetron 4 Mg/2 Ml Vial IVP Q8HR PRN Nausea And Vomiting Scopolamine 1 patch 05/13/23 15:15 05/13/23 17:23 Scopolamine 1 Mg/72 Hr Patch TRANSDERM 1 patch Q72H LUPE Administration Intake and Output 05/13/23 05/14/23 05/14/23 22:59 06:59 14:59 Output Total 068 514 8727 Balance -550 -500 -1500 Output: Urine 576 504 8195 Other: Voiding Method Indwelling Catheter Indwelling Catheter Indwelling Catheter Weight 90.718 kg 05/14/23 07:43 05/14/23 07:43
[2023-05-14 13:27] VITALS: BMI 31.3
[2023-05-14] MEDS: HEPARIN SODIUM,PORCINE 5,000 UNIT/ML 1 ML VIAL SQ SCH ×2 (16:11→23:50)
[2023-05-14] MEDS: SODIUM CHLORIDE 0.9% 1,000 ML IV SCH ×3 (16:12→23:03)
[2023-05-14] MEDS: FAMOTIDINE 20 MG TAB PEG/G-TUBE SCH (20:56)
[2023-05-15] MEDS: IPRATROPIUM-ALBUTEROL 3 ML NEB INHALATION SCH ×6 (01:13→21:14)
[2023-05-15] MEDS: BACLOFEN 10 MG TAB PEG/G-TUBE SCH ×3 (05:49→20:32)
[2023-05-15] MEDS: SODIUM CHLORIDE 0.9% 1,000 ML IV SCH ×2 (05:50→18:43)
[2023-05-15 09:22] LABS: Basophils % (A) 0 %; Eosinophils # (A) 0.1 k/uL (0-0.7); Eosinophils % (A) 2 %; HCT 35.6 % (39.0-53.0); HGB 10.9 gm/dL (13.0-17.5); Hypochromasia Marked; Lymphocytes # (A) 0.5 k/uL (1.0-4.8); Lymphocytes % (A) 9 %; MCH 27.2 pg (25.0-35.0); MCHC 30.6 g/dL (31.0-37.0); MCV 88.8 fL (80.0-100.0); Mean Platelet Volume 8.7; Monocytes # (A) 0.4 k/uL (0-1.0); Monocytes % (A) 7 %; Neutrophils # (A) 4.6 k/uL (1.3-7.7); Neutrophils % (A) 78 %; Platelet Count 196 k/uL (150-450); RBC 4.01 m/uL (4.30-5.90); RDW 15.1 % (11.5-15.5); WBC 5.8 k/uL (3.8-10.6)
[2023-05-15] MEDS: ASPIRIN 81 MG PEG/G-TUBE SCH (09:31)
[2023-05-15] MEDS: METOPROLOL TARTRATE 50 MG TAB PEG/G-TUBE SCH ×2 (09:31→20:32)
[2023-05-15] MEDS: HEPARIN SODIUM,PORCINE 5,000 UNIT/ML 1 ML VIAL SQ SCH ×3 (09:31→23:10)
[2023-05-15] MEDS: LACTULOSE 20 GM/30 ML CUP PEG/G-TUBE SCH ×3 (09:31→20:32)
[2023-05-15] MEDS: LACOSAMIDE 150 MG TABLET PEG/G-TUBE SCH ×2 (09:31→20:32)
[2023-05-15] MEDS: ATORVASTATIN 40 MG TAB PO SCH (09:33)
[2023-05-15] MEDS: HYDROmorphone 0.5 MG/0.5 ML SYRINGE IVP PRN (09:47)
[2023-05-15 10:03] LABS: African American GFR (CKD) >90 (>60 ml/min/1.73 sqM); Anion Gap 11 mmol/L; Blood Urea Nitrogen 22 mg/dL (9-20); Calcium 7.8 mg/dL (8.4-10.2); Carbon Dioxide 22 mmol/L (22-30); Chloride 112 mmol/L (98-107); Glucose 146 mg/dL (74-99); Non-African American GFR(CKD) >90 (>60 ml/min/1.73 sqM); Potassium 3.8 mmol/L (3.5-5.1); Sodium 145 mmol/L (137-145)
--- NOTE | 2023-05-15 10:56 | P.PN ---
Subjective Progress Note Date: 05/15/23 History of present illness: This is a 62 year old male with past medical history of DVT, hypertension, mul tiple sclerosis, seizure disorder, dementia, pneumonia, UTI, dysphagia with PEG tube, neurogenic bladder with chronic aggarwal catheter. Patient does not follow with a it security consultant. We have been asked to see the patient in consultation for abnormal troponins. Patient presented to the emergency center due to mental status changes and found to have fever and found to have tachycardia. Patient has had outpatient treatment for urinary tract infection. Patient is unable to answer questions or provide any information. Patient is known to be nonverbal. EKG sinus tachycardia at 124 bpm with nonspecific changes Chest x-ray: No acute change. CAT scan of the brain: Age-related atrophy and chronic small vessel ischemic change without acute intracranial process. WBC 14.7, hemoglobin 13.2, sodium 136, BUN 39 creatinine 1.01. Blood sugar 154. Troponin 0.155, 0.222, 0.164. TSH 2.56. Home cardiac medications: Aspirin 81 mg daily, Lopressor 50 mg twice daily 05/15 Patient is seen today in follow-up. Heart rate has been in the 70s and 80s, blood pressure 138/71. Patient has been febrile with temperature max. Physical examination: Gen: This is a 62-year-old male resting in bed. VS: reviewed HEENT: Head is atraumatic, normocephalic. Pupils equal, round. Sclerae is anicteric. LUNGS: Bilateral rhonchi. No intercostal retractions. HEART: Regular rate and rhythm. No murmur. EXTREMITIES: mild Bilateral pedal edema. No calf tenderness. Assessment: Chronic myocardial injury with no evidence of acute ischemia by EKG Urinary tract infection Multiple sclerosis Seizure disorder Dysphagia with PEG tube Neurogenic bladder with chronic Aggarwal catheter History of pneumonia History of DVT History of hypertension Plan: Patient with chronic ischemia with no evidence of acute ischemia on EKG Recommend medical treatment at this time, patient is not an interventional candidate, Continue Aspirin, Statin, Beta hali Unable to obtain 2-D echocardiogram and Doppler study due to patient contr actures Cardiology will sign off this case and follow on an as-needed basis. Please reconsult for any new concerns. Nurse practitioner note has been reviewed, I agree with documented findings and plan of care. Patient was seen and examined. Objective - Vital Signs Vital signs: Vital Signs Temp 98.7 F 05/15/23 04:00 Pulse 92 05/15/23 08:13 Resp 26 H 05/15/23 04:00 BP 122/73 05/15/23 04:00 Pulse Ox 98 05/15/23 04:00 FiO2 Intake & Output 05/14/23 05/15/23 05/15/23 18:59 06:59 18:59 Intake Total 120 150 Output Total 2300 625 Balance -2180 -475 Weight 90.718 kg Intake: IV 10 Invasive Line 1 10 Oral 120 Other 140 Output: Urine 2300 625 Other: Voiding Method Indwelling Catheter Indwelling Catheter # Bowel Movements 1 - Labs CBC & Chem 7: 05/15/23 08:31 05/15/23 08:31 Labs: Microbiology - Last 24 Hours (Table) 05/13/23 11:53 Blood Culture Gram Stain - Preliminary Blood 05/13/23 11:45 Blood Culture Gram Stain - Preliminary Blood
--- NOTE | 2023-05-15 12:11 | P.PN ---
Subjective Progress Note Date: 05/15/23 61-year-old male with history of multiple sclerosis, chronic Stein catheter, seizure disorder, bedbound, chronic contractures, PEG tube dependent, presenting with worsening mentation. In the ED, temperature was 102.7, pulse 130, respiratory rate 22, blood pressure 148/80, saturating at 94% on room air. WBC 14.7, hemoglobin 13.2, sodium 136, bicarb 21, BUN 39, creatinine 1.01, lactate 4, troponin 0.155. Chest x-ray shows poor respiratory effort, no significant opacity. Head CT shows no acute process. Urinalysis showed large leukocyte esterase. Patient admitted for sepsis likely secondary to urinary tract infection. ID consulted. Started on ertapenem per ID. 05/15 Patient was seen and examined. Nonverbal. CBC shows hemoglobin of 10.9. MB shows chloride of 112, BUN of 22, glucose 146, calcium 7.8. Urine culture gram-negative bacilli. Blood culture gram-negative bacilli with coagulation negative staph. He is continued on ertapenem 1 g IV daily. IV hydration with normal saline at 100 mL per hour. Vitals Signs: BP 137/71. RR 28. HR 79. 91% on RA. Tmax 101.3F over the past 24H. General: nontoxic, no distress, appears at stated age, nonverbal Derm: warm, dry, PEG tube site appears clean, dry Head: atraumatic, normocephalic, symmetric Eyes: EOMI, no lid lag, anicteric sclera ENT: Nose and ears atraumatic Neck: No thyromegaly, supple Cardiovascular: S1S2 reg, no murmur, no edema Lungs: Bilateral rhonchi, no rales, no wheeze, no accessory muscle use Neuro: Severe contractures Psych: Nonverbal Sepsis secondary to urinary tract infection Acute metabolic encephalopathy Elevated troponin History of dementia History of MS PEG tube dependent Seizure disorder Based on my assessment of this patient, this patient meets a high complexity level of care. Patient has an acute diagnosis of UTI sepsis with gram negative bacteremia and troponemia that poses a threat to life or bodily function. Sepsis secondary to urinary tract infection: Continue NS at 100 cc/hr. Continue ertapenem 1 g IV daily. Repeat BCx tomorrow. Telemetry monitoring. ID on board. Gram negative bacteremia: Management as above. Acute metabolic encephalopathy: Related to above. Elevated troponin: Flat. Unable to obtain Echo. Cardiology on board. Continue ASA, Lipitor and Metoprolol. History of dementia History of MS PEG tube dependent Seizure disorder I have reviewed the following hearing aid consultant notes: Cardiology note reviewed. I have reviewed the results of the following tests: CBC and BMP as above. UCx and BCx as above. I have ordered the following tests: CBC, BMP, repeat BCx ordered. I have discussed the care of this patient with the following independent historian: Case discussed with RN. I have independently interpreted the following test below: I have discussed the management of this patient with the following physician: Objective - Vital Signs Vital signs: Vital Signs Temp 98.8 F 05/15/23 08:55 Pulse 84 05/15/23 11:02 Resp 28 H 05/15/23 08:55 BP 138/71 05/15/23 08:55 Pulse Ox 97 05/15/23 10:02 FiO2 Intake & Output 05/14/23 05/15/23 05/15/23 18:59 06:59 18:59 Intake Total 120 150 Output Total 2300 625 Balance -2180 -475 Weight 90.718 kg Intake: IV 10 Invasive Line 1 10 Oral 120 Other 140 Output: Urine 2300 625 Other: Voiding Method Indwelling Catheter Indwelling Catheter # Bowel Movements 1 0 - Labs CBC & Chem 7: 05/15/23 08:31 05/15/23 08:31 Labs: Abnormal Lab Results - Last 24 Hours (Table) 05/15/23 05/15/23 Range/Units 08:31 08:31 RBC 4.01 L (4.30-5.90) m/uL Hgb 10.9 L (13.0-17.5) gm/dL Hct 35.6 L (39.0-53.0) % MCHC 30.6 L (31.0-37.0) g/dL Lymphocytes # 0.5 L (1.0-4.8) k/uL Chloride 112 H (98-107) mmol/L BUN 22 H (9-20) mg/dL Glucose 146 H (74-99) mg/dL Calcium 7.8 L (8.4-10.2) mg/dL Microbiology - Last 24 Hours (Table) 05/13/23 11:45 Blood Culture Gram Stain - Preliminary Blood Blood Culture - Preliminary Gram Neg Bacilli Coagulase Negative Staph 05/13/23 11:53 Blood Culture Gram Stain - Preliminary Blood Blood Culture - Preliminary Gram Neg Bacilli Coagulase Negative Stap 05/13/23 12:10 Urine Culture - Preliminary Urine,Voided Gram Neg Bacilli
--- NOTE | 2023-05-15 12:15 | CDI ---
Documentation Clarification Form Date: 05/15/2023 11:19:02 AM From: Ayanna Pedraza RN, CCDS Admit Date: 05/13/2023 12:48:00 PM Patient Name: Chris Marvin Visit Number: [id number] Discharge Date: ATTENTION: The Clinical Documentation Specialists (CDI) and [facility] Coding Staff appreciate your assistance in clarifying documentation. Please respond to the clarification below the line at the bottom and electronically sign. The CDI & [facility] Coding staff will review the response and follow-up if needed. Please note: Queries are made part of the Legal Health Record. If you have any questions, please contact the author of this message via ITS. Dr. Bernabe Newberry UTI is documented in the H/P and subsequent progress notes and patient has chronic Stein catheter. Additional clarification regarding the etiology of the UTI is requested. History/Risk Factors: multiple sclerosis, chronic Stein catheter, seizure disorder, bedbound, chronic contractures, PEG tube dependent, ID Consult: patient presented hospital with sepsis in this patient with a fever tachycardia elevated white count source likely catheter associated tract infection in this patient with a history of recurrent UTIs and exposure to antibiotics will need to cover for resistant gram-negative to be likely pathogen. Clinical Indicators: 62-year-old male present with worsening mentation. Per report, his Stein catheter has not been exchange for about 6 weeks. Normally his baseline is him being able to respond to some commands. 05/13 Urinalysis: Large Leukocyte Esterase 05/13 Urine culture: Preliminary: Gram Neg Bacilli 05/13 Lab results: WBC 14.7 05/13 Blood culture: Preliminary Gram Neg Bacilli, Coagulase negative Staph Treatment: Stein catheter exchange Invanz 1 GM IV Daily (PTD) Please clarify the etiology of the UTI, if known: [x ] Stein catheter [ ] UTI not related to catheter [ ] Other condition, please specify [ ] Unable to determine (Template Last Revised: November 2020) MTDD
[2023-05-15] MEDS: ERTAPENEM 1 GM in SODIUM CHLORIDE 0.9% 50 ML IVPB SCH (12:23)
--- NOTE | 2023-05-15 15:38 | P.PN ---
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 On today's evaluation that is 05/14/2023, patient did spike a fever of 101.9F around 4 AM the patient is afebrile since then, the patient is breathing comfortably on room air patient is nonverbal no vomiting or diarrhea has been reported Patient did have a white count of 7.6 creatinine 0.79, blood culture with gram- negative bacilli urine cultures pending Objective - Vital Signs Vital signs: Vital Signs Temp 99.0 F 05/14/23 11:18 Pulse 84 05/14/23 11:44 Resp 30 H 05/14/23 11:18 BP 139/79 05/14/23 11:18 Pulse Ox 96 05/14/23 11:18 FiO2 Intake & Output 05/13/23 05/14/23 05/14/23 18:59 06:59 18:59 Output Total 530 630 6842 Balance -550 -500 -1500 Weight 90.718 kg Output: Urine 922 835 5482 Other: Voiding Method Indwelling Catheter Indwelling Catheter Indwelling Catheter - Exam GENERAL DESCRIPTION: Middle-age male lying in bed in no distress RESPIRATORY SYSTEM: Unlabored breathing , decreased breath sounds at bases HEART: S1 S2 regular rate and rhythm , ABDOMEN: Soft , no tenderness EXTREMITIES: No edema feet - Labs CBC & Chem 7: 05/15/23 08:31 05/15/23 08:31 Labs: Abnormal Lab Results - Last 24 Hours (Table) 05/13/23 05/13/23 05/13/23 Range/Units 12:10 15:31 18:53 RBC (4.30-5.90) m/uL Hgb (13.0-17.5) gm/dL Hct (39.0-53.0) % Lymphocytes # (1.0-4.8) k/uL Chloride (98-107) mmol/L Carbon Dioxide (22-30) mmol/L BUN (9-20) mg/dL Glucose (74-99) mg/dL Calcium (8.4-10.2) mg/dL Troponin I 0.222 H* 0.164 H* (0.000-0.034) ng/mL Urine Protein 1+ H (Negative) Urine Blood Small H (Negative) Ur Leukocyte Esterase Large H (Negative) Urine WBC 77 H (0-5) /hpf Urine Bacteria Occasional H (None) /hpf Urine Mucus Rare H (None) /hpf 05/14/23 05/14/23 Range/Units 07:43 07:43 RBC 3.77 L (4.30-5.90) m/uL Hgb 10.7 L (13.0-17.5) gm/dL Hct 32.8 L (39.0-53.0) % Lymphocytes # 0.4 L (1.0-4.8) k/uL Chloride 110 H (98-107) mmol/L Carbon Dioxide 20 L (22-30) mmol/L BUN 25 H (9-20) mg/dL Glucose 128 H (74-99) mg/dL Calcium 7.7 L (8.4-10.2) mg/dL Troponin I (0.000-0.034) ng/mL Urine Protein (Negative) Urine Blood (Negative) Ur Leukocyte Esterase (Negative) Urine WBC (0-5) /hpf Urine Bacteria (None) /hpf Urine Mucus (None) /hpf Assessment and Plan (1) Catheter-associated urinary tract infection Current Visit: Yes Status: Acute Code(s): T83.511A - I/I REACT D/T INDWELLING URETHRAL CATHETER, INIT; N39.0 - URINARY TRACT INFECTION, SITE NOT SPECIFIED SNOMED Code(s): 344833850 (2) Gram-negative bacteremia Current Visit: Yes Status: Acute Code(s): R78.81 - BACTEREMIA SNOMED Code(s): 074262024794 (3) Sepsis Current Visit: Yes Status: Acute Code(s): A41.9 - SEPSIS, UNSPECIFIED ORGANISM SNOMED Code(s): 04858222 Plan: 1patient [facility] with sepsis in this patient with a fever tachycardia elevated white count source likely catheter associated tract infection in this patient with a history of recurrent UTIs and exposure to antibiotics will need to cover for resistant gram-negative to be likely pathogen 2-patient with multiple antibiotic allergies that would limit the number of antibiotics safe to use 3-Stein catheter has been changed and blood cultures currently growing gram- negative bacilli with ID and sensitivities pending 4-patient to continue with Invanz 1 g daily while waiting for the culture to finalize Dictation was produced using [email or web address] dictation software. please excuse any grammatical, word or spelling errors. Time with Patient: Less than 30
--- NOTE | 2023-05-15 15:41 | P.PN ---
Subjective Progress Note Date: 05/15/23 Principal diagnosis: Catheter associated UTI and bacteremia Patient is a 62-year-old male with a past medical history significant for MS seizure disorder in this patient who is bedbound [facility] history of recurrent UTI and pneumonia patient has been sent to the ER for evaluation of decreased urine output , patient did have a positive UA fever concerning for catheter associated UTI subsequently blood cultures Gram-positive and gram-negative bacilli. On today's evaluation that is 05/15/2023, patient fever pattern has improved with a temperature of 99.6F this morning, the patient is breathing comfortably on 2 L nasal cannula oxygen patient is nonverbal no vomiting or diarrhea or any other changes has been reported by the nursing staff Patient did have a white count of 5.8 creatinine 0.73, blood culture with gram- negative bacilli and also showing staph epi urine cultures gram-negative bacilli Objective - Vital Signs Vital signs: Vital Signs Temp 99.6 F 05/15/23 12:00 Pulse 100 05/15/23 12:00 Resp 28 H 05/15/23 12:00 BP 154/77 05/15/23 12:00 Pulse Ox 97 05/15/23 12:00 FiO2 Intake & Output 05/14/23 05/15/23 05/15/23 18:59 06:59 18:59 Intake Total 120 150 Output Total 2300 625 Balance -2180 -475 Weight 90.718 kg Intake: IV 10 Invasive Line 1 10 Oral 120 Other 140 Output: Urine 2300 625 Other: Voiding Method Indwelling Catheter Indwelling Catheter Indwelling Catheter # Bowel Movements 1 0 - Exam GENERAL DESCRIPTION: Middle-age male lying in bed in no distress RESPIRATORY SYSTEM: Unlabored breathing , decreased breath sounds at bases HEART: S1 S2 regular rate and rhythm , ABDOMEN: Soft , no tenderness EXTREMITIES: No edema feet - Labs CBC & Chem 7: 05/15/23 08:31 05/15/23 08:31 Labs: Abnormal Lab Results - Last 24 Hours (Table) 05/15/23 05/15/23 Range/Units 08:31 08:31 RBC 4.01 L (4.30-5.90) m/uL Hgb 10.9 L (13.0-17.5) gm/dL Hct 35.6 L (39.0-53.0) % MCHC 30.6 L (31.0-37.0) g/dL Lymphocytes # 0.5 L (1.0-4.8) k/uL Chloride 112 H (98-107) mmol/L BUN 22 H (9-20) mg/dL Glucose 146 H (74-99) mg/dL Calcium 7.8 L (8.4-10.2) mg/dL Microbiology - Last 24 Hours (Table) 05/13/23 11:45 Blood Culture Gram Stain - Preliminary Blood Blood Culture - Preliminary Gram Neg Bacilli Coagulase Negative Staph 05/13/23 11:53 Blood Culture Gram Stain - Preliminary Blood Blood Culture - Preliminary Gram Neg Bacilli Coagulase Negative Staph 05/13/23 12:10 Urine Culture - Preliminary Urine,Voided Gram Neg Bacilli Assessment and Plan (1) Catheter-associated urinary tract infection Current Visit: Yes Status: Acute Code(s): T83.511A - I/I REACT D/T INDWELLING URETHRAL CATHETER, INIT; N39.0 - URINARY TRACT INFECTION, SITE NOT S PECIFIED SNOMED Code(s): 812278942 (2) Elevated troponin Current Visit: Yes Status: Acute Code(s): R77.8 - OTHER SPECIFIED ABNORMALITIES OF PLASMA PROTEINS SNOMED Code(s): 906307589 Plan: 1patient [facility] with sepsis in this patient with a fever tachycardia elevated white count source likely catheter associated tract infection in this patient with a history of recurrent UTIs and exposure to antibiotics will need to cover for resistant gram-negative to be likely pathogen 2-patient with multiple antibiotic allergies that would limit the number of antibiotics safe to use Patient blood cultures currently growing gram-negative bacilli with ID and sensitivities pending, also growing staph epi which is more likely contamination 4-patient did have improvement in the fever pattern and will continue with Invanz 1 g daily while waiting for the culture to finalize Dictation was produced using [employer] dictation software. please excuse any grammatical, word or spelling errors. Time with Patient: Less than 30
[2023-05-15] MEDS: FAMOTIDINE 20 MG TAB PEG/G-TUBE SCH (20:32)
--- NOTE | 2023-05-15 20:39 | XR ---
EXAMINATION TYPE: XR chest 1V DATE OF EXAM: 05/15/2023 8:14 PM COMPARISON: Chest radiographs from 05/13/2023 TECHNIQUE: XR chest 1V Frontal view of the chest. CLINICAL INDICATION:Male, 62 years old with history of tachypnea; FINDINGS: Patient is rotated which limits evaluation. Lungs/Pleura: There is no evidence of pleural effusion, focal consolidation, or pneumothorax. Chroni c senescent parenchymal change. Pulmonary vascularity: Unremarkable. Heart/mediastinum: Cardiomediastinal silhouette is unremarkable. Musculoskeletal: No acute osseous pathology. IMPRESSION: No acute cardiopulmonary disease/process.
--- NOTE | 2023-05-15 20:42 | XR ---
EXAMINATION TYPE: XR KUB DATE OF EXAM: 05/15/2023 COMPARISON: KUB radiograph 05/01/2023 HISTORY: Abdominal distention TECHNIQUE: Supine view of the abdomen was obtained with 3 radiographs. FINDINGS: PEG tube overlies the distal stomach. Mildly distended gas-filled small and large bowel. Stool is pre sent within the rectum. Multiple pelvic phleboliths. Chronic fracture deformity of the left proximal femur. IMPRESSION: Mild gaseous distention of the small and large bowel suggesting ileus.
[2023-05-15 23:10] LABS: Glucose,Whole Blood 277 mg/dL (70-110)
[2023-05-16] MEDS: IPRATROPIUM-ALBUTEROL 3 ML NEB INHALATION SCH ×6 (00:52→21:01)
[2023-05-16] MEDS: SODIUM CHLORIDE 0.9% 1,000 ML IV SCH (03:20)
[2023-05-16] MEDS: BACLOFEN 10 MG TAB PEG/G-TUBE SCH ×3 (06:37→20:54)
[2023-05-16] MEDS: LACOSAMIDE 150 MG TABLET PEG/G-TUBE SCH ×2 (09:00→20:54)
[2023-05-16] MEDS: ASPIRIN 81 MG PEG/G-TUBE SCH (09:00)
[2023-05-16] MEDS: HEPARIN SODIUM,PORCINE 5,000 UNIT/ML 1 ML VIAL SQ SCH ×2 (09:00→16:48)
[2023-05-16] MEDS: ATORVASTATIN 40 MG TAB PO SCH (09:00)
[2023-05-16] MEDS: METOPROLOL TARTRATE 50 MG TAB PEG/G-TUBE SCH ×2 (09:00→20:55)
[2023-05-16] MEDS: LACTULOSE 20 GM/30 ML CUP PEG/G-TUBE SCH ×3 (09:02→20:54)
[2023-05-16 09:06] LABS: HGB 10.3 gm/dL (13.0-17.5); Hypochromasia Moderate; MCH 27.3 pg (25.0-35.0); MCHC 31.1 g/dL (31.0-37.0); MCV 87.7 fL (80.0-100.0); Mean Platelet Volume 8.5; Platelet Count 246 k/uL (150-450); RBC 3.76 m/uL (4.30-5.90); RDW 15.3 % (11.5-15.5); WBC 6.6 k/uL (3.8-10.6)
[2023-05-16 09:16] LABS: African American GFR (CKD) >90 (>60 ml/min/1.73 sqM); Anion Gap 8 mmol/L; Blood Urea Nitrogen 18 mg/dL (9-20); Calcium 7.9 mg/dL (8.4-10.2); Carbon Dioxide 24 mmol/L (22-30); Chloride 114 mmol/L (98-107); Glucose 110 mg/dL (74-99); Non-African American GFR(CKD) >90 (>60 ml/min/1.73 sqM); Potassium 4.1 mmol/L (3.5-5.1); Sodium 146 mmol/L (137-145)
[2023-05-16] MEDS: ACETAMINOPHEN TAB 325 MG TAB PO PRN (12:23)
[2023-05-16] MEDS: ERTAPENEM 1 GM in SODIUM CHLORIDE 0.9% 50 ML IVPB SCH (12:24)
--- NOTE | 2023-05-16 13:17 | P.PN ---
Subjective Progress Note Date: 05/16/23 61-year-old male with history of multiple sclerosis, chronic Stein catheter, seizure disorder, bedbound, chronic contractures, PEG tube dependent, presenting with worsening mentation. In the ED, temperature was 102.7, pulse 130, respiratory rate 22, blood pressure 148/80, saturating at 94% on room air. WBC 14.7, hemoglobin 13.2, sodium 136, bicarb 21, BUN 39, creatinine 1.01, lactate 4, troponin 0.155. Chest x-ray shows poor respiratory effort, no significant opacity. Head CT shows no acute process. Urinalysis showed large leukocyte esterase. Patient admitted for sepsis likely secondary to urinary tract infection. ID consulted. Started on ertapenem per ID. 05/15 Patient was seen and examined. Nonverbal. CBC shows hemoglobin of 10.9. BMP shows chloride of 112, BUN of 22, glucose 146, calcium 7.8. Urine culture gram-negative bacilli. Blood culture gram-negative bacilli with coagulation negative staph. He is continued on ertapenem 1 g IV daily. IV hydration with normal saline at 100 mL per hour. 05/16 Patient was seen and examined. Non verbal. Abdominal distention noted, KUB showing ileus, TF held. CXR negative. CBC shows hemoglobin of 10.3. BMP shows Na 146, chloride of 114, glucose 110, calcium 7.9. UCx growing providencia stuartii. Vitals Signs: BP 133/79. RR 18. HR 90. 99% on 2LNC. Tmax 99.6F over the past 24H. General: nontoxic, no distress, appears at stated age, nonverbal Derm: warm, dry, PEG tube site appears clean, dry Head: atraumatic, normocephalic, symmetric Eyes: EOMI, no lid lag, anicteric sclera ENT: Nose and ears atraumatic Neck: No thyromegaly, supple Cardiovascular: S1S2 reg, no murmur, no edema Abdominal distention with sluggish bowel sounds. Lungs: Bilateral rhonchi, no rales, no wheeze, no accessory muscle use Neuro: Severe contractures Psych: Nonverbal Ileus Hypernatremia Sepsis secondary to urinary tract infection Acute metabolic encephalopathy Elevated troponin History of dementia History of MS PEG tube dependent Seizure disorder Based on my assessment of this patient, this patient meets a high complexity level of care. Patient has an acute diagnosis of UTI sepsis with gram negative bacteremia and troponemia that poses a threat to life or bodily function. Ileus: Noted on KUB. Start reglan 4 mg IV Q6H. TF on hold. Consult surgery. HyperNa: Likely due to decreased free water intake. Start D5 1/2 NS at 50 cc/hr. Sepsis secondary to urinary tract infection: IV hydration as above. Continue ertapenem 1 g IV daily. Repeat BCx pending. Telemetry monitoring. ID on board. Gram negative bacteremia: Management as above. Acute metabolic encephalopathy: Related to above. Elevated troponin: Flat. Unable to obtain Echo. Cardiology on board. Continue ASA, Lipitor and Metoprolol. History of dementia History of MS PEG tube dependent Seizure disorder I have reviewed the following system sales consultant notes: I have reviewed the results of the following tests: CBC and BMP as above. UCx as above. I have ordered the following tests: CBC, BMP ordered. I have discussed the care of this patient with the following independent historian: Case discussed with RN. I have independently interpreted the following test below: KUB and CXR as above. I have discussed the management of this patient with the following physician: Objective - Vital Signs Vital signs: Vital Signs Temp 99.5 F 05/16/23 12:00 Pulse 84 05/16/23 12:20 Resp 18 05/16/23 12:20 BP 133/79 05/16/23 12:00 Pulse Ox 99 05/16/23 12:00 FiO2 Intake & Output 05/15/23 05/16/23 05/16/23 18:59 06:59 18:59 Intake Total 970 Output Total 500 600 550 Balance 470 -600 -550 Intake: Intake, IV Titration 50 Amount Ertapenem 1 gm In Sodium 50 Chloride 0.9% 50 ml @ 100 mls/hr IVPB DAILY@1200 [facility] Rx#:[id number] Tube Feeding 800 Other 120 Output: Urine 500 600 550 Other: Voiding Method Indwelling Catheter Indwelling Catheter Indwelling Catheter # Bowel Movements 0 - Labs CBC & Chem 7: 05/16/23 08:36 05/16/23 08:36 Labs: Abnormal Lab Results - Last 24 Hours (Table) 05/15/23 05/16/23 05/16/23 Range/Units 23:08 08:36 08:36 RBC 3.76 L (4.30-5.90) m/uL Hgb 10.3 L (13.0-17.5) gm/dL Hct 33.0 L (39.0-53.0) % Sodium 146 H (137-145) mmol/L Chloride 114 H (98-107) mmol/L Glucose 110 H (74-99) mg/dL POC Glucose (mg/dL) 277 H (70-110) mg/dL Calcium 7.9 L (8.4-10.2) mg/dL Microbiology - Last 24 Hours (Table) 05/13/23 12:10 Urine Culture - Final Urine,Voided Providencia stuartii 05/13/23 11:45 Blood Culture Gram Stain - Preliminary Blood Blood Culture - Preliminary Gram Neg Bacilli Coagulase Negative Staph 05/13/23 11:53 Blood Culture Gram Stain - Preliminary Blood Blood Culture - Preliminary Gram Neg Bacilli Coagulase Negative Staph
[2023-05-16] MEDS: METOCLOPRAMIDE 5 MG/ML 2 ML VIAL IVP SCH ×2 (16:47→16:50)
[2023-05-16] MEDS: SCOPOLAMINE 1 MG/72 HR PATCH TRANSDERM SCH (16:48)
[2023-05-16] MEDS: DEXTROSE 5%-0.45% NACL 1,000 ML IV SCH (16:49)
[2023-05-16] MEDS: FAMOTIDINE 20 MG TAB PEG/G-TUBE SCH (20:54)
[2023-05-17] MEDS: IPRATROPIUM-ALBUTEROL 3 ML NEB INHALATION SCH ×6 (00:12→20:41)
[2023-05-17] MEDS: METOCLOPRAMIDE 5 MG/ML 2 ML VIAL IVP SCH ×4 (00:17→16:43)
[2023-05-17] MEDS: HEPARIN SODIUM,PORCINE 5,000 UNIT/ML 1 ML VIAL SQ SCH ×3 (00:17→16:43)
[2023-05-17] MEDS: SODIUM CHLORIDE 0.9% 1,000 ML IV SCH (05:22)
[2023-05-17] MEDS: BACLOFEN 10 MG TAB PEG/G-TUBE SCH ×3 (06:05→21:17)
[2023-05-17] MEDS: ATORVASTATIN 40 MG TAB PO SCH (09:06)
[2023-05-17] MEDS: ASPIRIN 81 MG PEG/G-TUBE SCH (09:06)
[2023-05-17] MEDS: METOPROLOL TARTRATE 50 MG TAB PEG/G-TUBE SCH ×2 (09:06→21:17)
[2023-05-17] MEDS: LACTULOSE 20 GM/30 ML CUP PEG/G-TUBE SCH ×3 (09:06→21:17)
[2023-05-17] MEDS: LACOSAMIDE 150 MG TABLET PEG/G-TUBE SCH ×2 (09:08→21:17)
[2023-05-17 09:32] LABS: African American GFR (CKD) >90 (>60 ml/min/1.73 sqM); Anion Gap 8 mmol/L; Blood Urea Nitrogen 14 mg/dL (9-20); Calcium 7.9 mg/dL (8.4-10.2); Carbon Dioxide 21 mmol/L (22-30); Chloride 113 mmol/L (98-107); Glucose 102 mg/dL (74-99); Non-African American GFR(CKD) >90 (>60 ml/min/1.73 sqM); Potassium 4.4 mmol/L (3.5-5.1); Sodium 142 mmol/L (137-145)
[2023-05-17] MEDS: ERTAPENEM 1 GM in SODIUM CHLORIDE 0.9% 50 ML IVPB SCH (12:39)
[2023-05-17] MEDS: HYDROmorphone 0.5 MG/0.5 ML SYRINGE IVP PRN (12:49)
--- NOTE | 2023-05-17 14:45 | P.PN ---
Subjective Progress Note Date: 05/17/23 61-year-old male with history of multiple sclerosis, chronic Stein catheter, seizure disorder, bedbound, chronic contractures, PEG tube dependent, presenting with worsening mentation. In the ED, temperature was 102.7, pulse 130, respiratory rate 22, blood pressure 148/80, saturating at 94% on room air. WBC 14.7, hemoglobin 13.2, sodium 136, bicarb 21, BUN 39, creatinine 1.01, lactate 4, troponin 0.155. Chest x-ray shows poor respiratory effort, no significant opacity. Head CT shows no acute process. Urinalysis showed large leukocyte esterase. Patient admitted for sepsis likely secondary to urinary tract infection. ID consulted. Started on ertapenem per ID. 05/15 Patient was seen and examined. Nonverbal. CBC shows hemoglobin of 10.9. BMP shows chloride of 112, BUN of 22, glucose 146, calcium 7.8. Urine culture gram-negative bacilli. Blood culture gram-negative bacilli with coagulation negative staph. He is continued on ertapenem 1 g IV daily. IV hydration with normal saline at 100 mL per hour. 05/16 Patient was seen and examined. Non verbal. Abdominal distention noted, KUB showing ileus, TF held. CXR negative. CBC shows hemoglobin of 10.3. BMP shows Na 146, chloride of 114, glucose 110, calcium 7.9. UCx growing providencia stuartii. 05/17 Patient was seen and examined. Non verbal. TF continue to be held. Started on Reglan IV scheduled yesterday for ileus. Sluggish bowel sounds noted. RN reports patient is passing gas. BMP shows chloride of 113, bicarb 21, glucose 102, calcium 7.9. BCx 05/16 prelim negative so far. General: nontoxic, no distress, appears at stated age, nonverbal Derm: warm, dry, PEG tube site appears clean, dry Head: atraumatic, normocephalic, symmetric Eyes: EOMI, no lid lag, anicteric sclera ENT: Nose and ears atraumatic Neck: No thyromegaly, supple Cardiovascular: S1S2 reg, no murmur, no edema Abdominal distention with sluggish bowel sounds. Lungs: Bilateral rhonchi, no rales, no wheeze, no accessory muscle use Neuro: Severe contractures Psych: Nonverbal Ileus Sepsis secondary to urinary tract infection Acute metabolic encephalopathy Elevated troponin History of dementia History of MS PEG tube dependent Seizure disorder Based on my assessment of this patient, this patient meets a moderate complexity level of care. Patient has an acute diagnosis of UTI sepsis with gram negative bacteremia and troponemia that poses a threat to life or bodily function. Ileus: Noted on KUB. Continue reglan 4 mg IV Q6H. TF on hold. Consult surgery. Sepsis secondary to urinary tract infection: D5 1/2 NS at 50 cc/hr. Continue ertapenem 1 g IV daily. Repeat BCx negative so far. Telemetry monitoring. ID on board. Gram negative bacteremia: Management as above. Acute metabolic encephalopathy: Related to above. Elevated troponin: Flat. Unable to obtain Echo. Cardiology on board. Continue ASA, Lipitor and Metoprolol. History of dementia History of MS PEG tube dependent Seizure disorder I have reviewed the following reporting consultant notes: I have reviewed the results of the following tests: BMP as above. BCx as above. I have ordered the following tests: I have discussed the care of this patient with the following independent historian: Case discussed with RN. I have independently interpreted the following test below: I have discussed the management of this patient with the following physician: Objective - Vital Signs Vital signs: Vital Signs Temp 98.5 F 05/17/23 08:00 Pulse 80 05/17/23 12:00 Resp 16 05/17/23 13:44 BP 129/84 05/17/23 12:00 Pulse Ox 99 05/17/23 12:00 FiO2 Intake & Output 05/16/23 05/17/23 05/17/23 18:59 06:59 18:59 Intake Total 0 Output Total 950 325 Balance -950 -325 Weight 90.718 kg Intake: Oral 0 Output: Urine 950 325 Other: Voiding Method Indwelling Catheter Indwelling Catheter Indwelling Catheter - Labs CBC & Chem 7: 05/16/23 08:36 05/17/23 08:22 Labs: Abnormal Lab Results - Last 24 Hours (Table) 05/17/23 Range/Units 08:22 Chloride 113 H (98-107) mmol/L Carbon Dioxide 21 L (22-30) mmol/L Glucose 102 H (74-99) mg/dL Calcium 7.9 L (8.4-10.2) mg/dL Microbiology - Last 24 Hours (Table) 05/13/23 11:53 Blood Culture Gram Stain - Final Blood Blood Culture - Final Providencia stuartii Staph capitis SS capitis 05/13/23 11:45 Blood Culture Gram Stain - Final Blood Blood Culture - Final Providencia stuartii Staph capitis SS capitis 05/16/23 08:36 Blood Culture - Preliminary Blood 05/16/23 08:36 Blood Culture - Preliminary Blood
[2023-05-17] MEDS: DEXTROSE 5%-0.45% NACL 1,000 ML IV SCH (21:15)
[2023-05-17] MEDS: FAMOTIDINE 20 MG TAB PEG/G-TUBE SCH (21:17)
[2023-05-18] MEDS: IPRATROPIUM-ALBUTEROL 3 ML NEB INHALATION SCH ×7 (00:08→23:29)
[2023-05-18] MEDS: METOCLOPRAMIDE 5 MG/ML 2 ML VIAL IVP SCH ×4 (01:23→16:55)
[2023-05-18] MEDS: HEPARIN SODIUM,PORCINE 5,000 UNIT/ML 1 ML VIAL SQ SCH ×3 (01:23→16:55)
[2023-05-18] MEDS: BACLOFEN 10 MG TAB PEG/G-TUBE SCH ×3 (06:41→20:27)
[2023-05-18] MEDS: DEXTROSE 5%-0.45% NACL 1,000 ML IV SCH (06:42)
--- NOTE | 2023-05-18 07:20 | P.GSCN ---
History of Present Illness Consult date: 05/17/23 Reason for Consult: Ileus History of present illness: This a 62-year-old male with multiple medical problems. Patient has a PEG tube in place. Patient's had some abdominal distention. His recent x-ray showed possible ileus. Per the nursing staff the patient's passing flatus and having small bowel movement. His tube feeds have been on hold. Patient is unable to give any significant medical history. Past Medical History Past Medical History: Deep Vein Thrombosis (DVT), GERD/Reflux, Hypertension, Musculoskeletal Disorder, Neurologic Disorder, Pneumonia, Seizure Disorder, Skin Disorder Additional Past Medical History / Comment(s): Pt diagnosed with MS at the age of 39 yrs, seizure/pneumonia/UTI with sepsis/respirtory failure/vented, cognitive impairment, sister states when he is feeling well he could speak a few words/nod head appropriately/give thumbs up/roll eyes but when ill is nonverbal, pt has dysphagia/NPO with peg tube, contractures, last seizure 07/2020, trigeminal neuralgia, dysarthria/anarthria/neurogenic bladder with IDC-UTIs/sepsis, multiple pneumonias, recent seizure-last one 07/03/20, incontinent of stool, pt has had decubitus ulcer coccyx-sister unsure of skin condition at this time, past anemia r/t heparin/epistaxiis which involved nasal packing/transfusions, DVT bilateral arms, hypoxia, oxygen at 2L/NC, L femoral head fracture History of Any Multi-Drug Resistant Organisms: ESBL, MRSA, Other MDRO Year Discovered:: 03/09/21-MRSA; 11/23/19 ESBL-E.coli MDRO Source:: Abdomen-Peg site MRSA; Urine -ESBL Past Surgical History: Tonsillectomy Additional Past Surgical History / Comment(s): Gastrostomy, peg tube, I&D coccyx decubitius, bronchoscopy, bilateral lasik eye surgery. Past Anesthesia/Blood Transfusion Reactions: No Reported Reaction Additional Past Anesthesia/Blood Transfusion Reaction / Comm: Pt has received blood in past without reaction. Past Psychological History: Depression Smoking Status: Never smoker Past Alcohol Use History: None Reported Past Drug Use History: None Reported - Past Family History Father Family Medical History: Myocardial Infarction ([place]) Mother Family Medical History: Hypertension, Myocardial Infarction ([place]) Additional Family Medical History / Comment(s): Mother of a [place] at the age of 73 yrs. Medications and Allergies Home Medications Medication Instructions Recorded Confirmed Type Ipratropium-Albuterol Nebulize 3 ml INHALATION RT-Q4H 12/16/19 05/13/23 History [Duoneb 0.5 mg-3 mg/3 ml Soln] Aspirin 81 mg PEG/G-TUBE DAILY@0900 11/27/20 05/13/23 History Acetaminophen Tab [Tylenol] 650 mg PEG/G-TUBE Q4H PRN 06/13/21 05/13/23 History Metoprolol Tartrate [Lopressor] 50 mg PEG/G-TUBE BID@0900,2100 06/13/21 05/13/23 History carBAMazepine [carBAMazepine Oral 100 mg PEG/G-TUBE 07/02/21 05/13/23 History Susp] TID@0600,1400,2200 Amantadine Hcl Solution 50mg/5ml 100 mg PEG/G-TUBE DAILY@0900 12/22/21 05/13/23 History Lactulose 20 gm PEG/G-TUBE TID@0900,1700,2100 01/03/22 05/13/23 History Scopolamine [Scopolamine 1 MG/72 1 patch TRANSDERM Q72H 01/03/22 05/13/23 History HR patch] Baclofen [Lioresal] 5 mg PEG/G-TUBE TID@0600,1400,2200 05/03/22 05/13/23 Rx tab Lacosamide [Vimpat] 150 mg PEG/G-TUBE BID@0900,2100 #4 05/03/22 05/13/23 Rx tab oxyBUTYnin chloride 5 mg PEG/G-TUBE TID@0600,1400,2200 12/19/22 05/13/23 History Famotidine [Pepcid] 20 mg PEG/G-TUBE HS@209905/13/23 05/13/23 History Allergies Allergy/AdvReac Type Severity Reaction Status Date / Time meropenem [From Merrem] Allergy Rash/Hives Verified 05/13/23 12:04 ceftolozane [From Zerbaxa] AdvReac Rapid Verified 05/13/23 12:04 Heart Rate tazobactam [From Zerbaxa] AdvReac Rapid Verified 05/13/23 12:04 Heart Rate Surgical - Exam Vital Signs Temp Pulse Resp BP Pulse Ox 102.7 F H 130 H 22 148/80 94 L 05/13/23 11:10 05/13/23 11:10 05/13/23 11:10 05/13/23 11:10 05/13/23 11:10 - General no distress - Eyes PERRL - Neck no masses - Respiratory normal expansion - Cardiovascular Rhythm: regular - Abdomen Mild distention Abdomen: soft, non tender Results - Labs 05/16/23 08:36 05/17/23 08:22 Abnormal Lab Results - Last 24 Hours (Table) 05/17/23 Range/Units 08:22 Chloride 113 H (98-107) mmol/L Carbon Dioxide 21 L (22-30) mmol/L Glucose 102 H (74-99) mg/dL Calcium 7.9 L (8.4-10.2) mg/dL Microbiology - Last 24 Hours (Table) 05/13/23 11:53 Blood Culture Gram Stain - Final Blood Blood Culture - Final Providencia stuartii Staph capitis SS capitis 05/13/23 11:45 Blood Culture Gram Stain - Final Blood Blood Culture - Final Providencia stuartii Staph capitis SS capitis 05/16/23 08:36 Blood Culture - Preliminary Blood 05/16/23 08:36 Blood Culture - Preliminary Blood Diabetes panel 05/17/23 Range/Units 08:22 Sodium 142 (137-145) mmol/L Potassium 4.4 (3.5-5.1) mmol/L Chloride 113 H (98-107) mmol/L Carbon Dioxide 21 L (22-30) mmol/L BUN 14 (9-20) mg/dL Creatinine 0.70 (0.66-1.25) mg/dL Glucose 102 H (74-99) mg/dL Calcium 7.9 L (8.4-10.2) mg/dL Calcium panel 05/17/23 Range/Units 08:22 Calcium 7.9 L (8.4-10.2) mg/dL Pituitary panel 05/17/23 Range/Units 08:22 Sodium 142 (137-145) mmol/L Potassium 4.4 (3.5-5.1) mmol/L Chloride 113 H (98-107) mmol/L Carbon Dioxide 21 L (22-30) mmol/L BUN 14 (9-20) mg/dL Creatinine 0.70 (0.66-1.25) mg/dL Glucose 102 H (74-99) mg/dL Calcium 7.9 L (8.4-10.2) mg/dL Adrenal panel 05/17/23 Range/Units 08:22 Sodium 142 (137-145) mmol/L Potassium 4.4 (3.5-5.1) mmol/L Chloride 113 H (98-107) mmol/L Carbon Dioxide 21 L (22-30) mmol/L BUN 14 (9-20) mg/dL Creatinine 0.70 (0.66-1.25) mg/dL Glucose 102 H (74-99) mg/dL Calcium 7.9 L (8.4-10.2) mg/dL Assessment and Plan Assessment: Resolving ileus. The patient is having some bowel function. He will have his tube feeds resumed at low dose 10 mL per hour. He'll be observed for his gastric residuals.
--- NOTE | 2023-05-18 07:46 | P.PN ---
Subjective Progress Note Date: 05/16/23 Principal diagnosis: Catheter associated UTI and bacteremia Patient is a 62-year-old male with a past medical history significant for MS seizure disorder in this patient who is bedbound senior care resident history of recurrent UTI and pneumonia patient has been sent to the ER for evaluation of decreased urine output , patient did have a positive UA fever concerning for catheter associated UTI subsequently blood cultures Gram-positive and gram-negative bacilli. On today's evaluation that is 05/16/2023 the patient remains to be afebrile, patient is breathing comfortably on 2 L nasal cannula oxygen patient remains to be nonverbal no vomiting has been reported abdominal x-ray did show some distention tube feeds has been put on hold. Patient did have a hemoglobin of 10 but the white count of 6.6 creatinine 0.72 blood urine culture showing gram-negative bacilli Objective - Vital Signs Vital signs: Vital Signs Temp 99.5 F 05/16/23 12:00 Pulse 84 05/16/23 12:20 Resp 18 05/16/23 12:20 BP 133/79 05/16/23 12:00 Pulse Ox 99 05/16/23 12:00 FiO2 Intake & Output 05/15/23 05/16/23 05/16/23 18:59 06:59 18:59 Intake Total 970 Output Total 500 600 550 Balance 470 -600 -550 Intake: Intake, IV Titration 50 Amount Ertapenem 1 gm In Sodium 50 Chloride 0.9% 50 ml @ 100 mls/hr IVPB DAILY@1200 [facility] Rx#:[id number] Tube Feeding 800 Other 120 Output: Urine 500 600 550 Other: Voiding Method Indwelling Catheter Indwelling Catheter Indwelling Catheter # Bowel Movements 0 - Exam GENERAL DESCRIPTION: Middle-age male lying in bed in no distress RESPIRATORY SYSTEM: Unlabored breathing , decreased breath sounds at bases HEART: S1 S2 regular rate and rhythm , ABDOMEN: Soft , no tenderness EXTREMITIES: No edema feet - Labs CBC & Chem 7: 05/16/23 08:36 05/17/23 08:22 Labs: Abnormal Lab Results - Last 24 Hours (Table) 05/15/23 05/16/23 05/16/23 Range/Units 23:08 08:36 08:36 RBC 3.76 L (4.30-5.90) m/uL Hgb 10.3 L (13.0-17.5) gm/dL Hct 33.0 L (39.0-53.0) % Sodium 146 H (137-145) mmol/L Chloride 114 H (98-107) mmol/L Glucose 110 H (74-99) mg/dL POC Glucose (mg/dL) 277 H (70-110) mg/dL Calcium 7.9 L (8.4-10.2) mg/dL Microbiology - Last 24 Hours (Table) 05/13/23 12:10 Urine Culture - Final Urine,Voided Providencia stuartii 05/13/23 11:45 Blood Culture Gram Stain - Preliminary Blood Blood Culture - Preliminary Gram Neg Bacilli Coagulase Negative Staph 05/13/23 11:53 Blood Culture Gram Stain - Preliminary Blood Blood Culture - Preliminary Gram Neg Bacilli Coagulase Negative Staph Assessment and Plan (1) Catheter-associated urinary tract infection Current Visit: Yes Status: Acute Code(s): T83.511A - I/I REACT D/T INDWELLIN G URETHRAL CATHETER, INIT; N39.0 - URINARY TRACT INFECTION, SITE NOT SPECIFIED SNOMED Code(s): 132687561 (2) Elevated troponin Current Visit: Yes Status: Acute Code(s): R77.8 - OTHER SPECIFIED ABNORMALITIES OF PLASMA PROTEINS SNOMED Code(s): 148557812 Plan: 1patient [facility] with sepsis in this patient with a fever tachycardia elevated white count source likely catheter associated tract infection in this patient with a history of recurrent UTIs and exposure to antibiotics will need to cover for resistant gram-negative to be likely pathogen 2-patient with multiple antibiotic allergies that would limit the number of antibiotics safe to use 3-Patient blood cultures currently growing gram-negative bacilli with ID and sensitivities pending, also growing staph epi which is more likely contamination 4-patient did have resolution of his fever, will continue with Invanz 1 g daily while waiting for the culture to finalize Dictation was produced using [employer] dictation software. please excuse any gramm atical, word or spelling errors. Time with Patient: Less than 30
--- NOTE | 2023-05-18 07:49 | P.PN ---
Subjective Progress Note Date: 05/17/23 Principal diagnosis: Catheter associated UTI and bacteremia Patient is a 62-year-old male with a past medical history significant for MS seizure disorder in this patient who is bedbound senior care resident history of recurrent UTI and pneumonia patient has been sent to the ER for evaluation of decreased urine output , patient did have a positive UA fever concerning for catheter associated UTI subsequently blood cultures Gram-positive and gram-negative bacilli. On today's evaluation that is 05/17/2023 patient remains to be afebrile, the patient is breathing comfortably on 2 L nasal cannula oxygen no vomiting has been reported, tube feeds has been put on hold because of ileus surgery has been consulted. Patient did have a normal white count as of yesterday creatinine 0.70 urine did grew proviidentia blood culture also grew the same pathogen Objective - Vital Signs Vital signs: Vital Signs Temp 98.5 F 05/17/23 08:00 Pulse 80 05/17/23 12:00 Resp 16 05/17/23 12:00 BP 129/84 05/17/23 12:00 Pulse Ox 99 05/17/23 12:00 FiO2 Intake & Output 05/16/23 05/17/23 05/17/23 18:59 06:59 18:59 Intake Total 0 Output Total 950 325 Balance -950 -325 Weight 90.718 kg Intake: Oral 0 Output: Urine 950 325 Other: Voiding Method Indwelling Catheter Indwelling Catheter Indwelling Catheter - Exam GENERAL DESCRIPTION: Middle-age male lying in bed in no distress RESPIRATORY SYSTEM: Unlabored breathing , decreased breath sounds at bases HEART: S1 S2 regular rate and rhythm , ABDOMEN: Soft , no tenderness EXTREMITIES: No edema feet - Labs CBC & Chem 7: 05/16/23 08:36 05/17/23 08:22 Labs: Abnormal Lab Results - Last 24 Hours (Table) 05/17/23 Range/Units 08:22 Chloride 113 H (98-107) mmol/L Carbon Dioxide 21 L (22-30) mmol/L Glucose 102 H (74-99) mg/dL Calcium 7.9 L (8.4-10.2) mg/dL Microbiology - Last 24 Hours (Table) 05/16/23 08:36 Blood Culture - Preliminary Blood 05/16/23 08:36 Blood Culture - Preliminary Blood 05/13/23 11:45 Blood Culture Gram Stain - Preliminary Blood Blood Culture - Preliminary Providencia stuartii Coagulase Negative Staph 05/13/23 11:53 Blood Culture Gram Stain - Preliminary Blood Blood Culture - Preliminary Providencia stuartii Coagulase Negative Staph 05/13/23 12:10 Urine Culture - Final Urine,Voided Providencia stuartii Assessment and Plan (1) Catheter-associated urinary tract infection Current Visit: Yes Status: Acute Code(s): T83.511A - I/I REACT D/T INDW ELLING URETHRAL CATHETER, INIT; N39.0 - URINARY TRACT INFECTION, SITE NOT SPECIFIED SNOMED Code(s): 961136729 (2) Elevated troponin Current Visit: Yes Status: Acute Code(s): R77.8 - OTHER SPECIFIED ABNORMALITIES OF PLASMA PROTEINS SNOMED Code(s): 318901736 Plan: 1patient [facility] with sepsis in this patient with a fever tachycardia elevated white count source likely catheter associated tract infection in this patient with a history of recurrent UTIs and exposure to antibiotics will need to cover for resistant gram-negative to be likely pathogen 2-patient with multiple antibiotic allergies that would limit the number of antibiotics safe to use 3-Patient blood cultures currently growing gram-negative bacilli with ID and sensitivities pending, also growing staph epi which is more likely contamination 4-Patient did has resolution of his fever and the patient white count is normal repeat blood culture has been negative so far initial blood culture grew per providenci for which the patient is covered with Invanz to continue, monitor clinical course closely Dictation was produced using [employer] dictation software. please excuse any grammatical, word or spelling errors. Time with Patient: Less than 30
[2023-05-18] MEDS: LACTULOSE 20 GM/30 ML CUP PEG/G-TUBE SCH ×3 (08:55→20:28)
[2023-05-18] MEDS: METOPROLOL TARTRATE 50 MG TAB PEG/G-TUBE SCH ×2 (08:55→20:27)
[2023-05-18] MEDS: ASPIRIN 81 MG PEG/G-TUBE SCH (08:55)
[2023-05-18] MEDS: LACOSAMIDE 150 MG TABLET PEG/G-TUBE SCH ×2 (08:55→20:27)
[2023-05-18] MEDS: ATORVASTATIN 40 MG TAB PO SCH (08:55)
--- NOTE | 2023-05-18 12:03 | P.PN ---
Progress Note - Text Progress Note Date: 05/18/23 Patient [place] stable. He is tolerating tube feeds. On exam vital signs appear stable. Abdomen soft. Patient will have his tube feeds advanced to goal.
[2023-05-18] MEDS: ERTAPENEM 1 GM in SODIUM CHLORIDE 0.9% 50 ML IVPB SCH (13:28)
--- NOTE | 2023-05-18 15:59 | P.PN ---
Subjective Progress Note Date: 05/18/23 Principal diagnosis: Catheter associated UTI and bacteremia Patient is a 62-year-old male with a past medical history significant for MS seizure disorder in this patient who is bedbound [facility] resident history of recurrent UTI and pneumonia patient has been sent to the ER for evaluation of decreased urine output , patient did have a positive UA fever concerning for catheter associated UTI subsequently blood cultures Gram-positive and gram-negative bacilli. On today's evaluation that is 05/18/2023, the patient remains to be afebrile, patient is breathing comfortably on 2 L nasal cannula oxygen, patient nonverbal and unable to provide any history has been tolerating his tube feeds at lower rate no vomiting or diarrhea has been reported No CBC or BMP was done today and repeat blood culture has been negative Objective - Vital Signs Vital signs: Vital Signs Temp 98 F 05/18/23 08:00 Pulse 80 05/18/23 12:00 Resp 16 05/18/23 12:00 BP 125/80 05/18/23 12:00 Pulse Ox 98 05/18/23 12:00 FiO2 Intake & Output 05/17/23 05/18/23 05/18/23 18:59 06:59 18:59 Output Total 1400 Balance -1400 Weight 90.718 kg 90.718 kg Output: Urine 1400 Other: Voiding Method Indwelling Catheter Indwelling Catheter Indwelling Catheter - Exam GENERAL DESCRIPTION: Middle-age male lying in bed in no distress RESPIRATORY SYSTEM: Unlabored breathing , decreased breath sounds at bases HEART: S1 S2 regular rate and rhythm , ABDOMEN: Soft , no tenderness EXTREMITIES: No edema feet - Labs CBC & Chem 7: 05/16/23 08:36 05/17/23 08:22 Labs: Microbiology - Last 24 Hours (Table) 05/13/23 11:53 Blood Culture Gram Stain - Final Blood Blood Culture - Final Providencia stuartii Staph capitis SS capitis 05/13/23 11:45 Blood Culture Gram Stain - Final Blood Blood Culture - Final Providencia stuartii Staph capitis SS capitis 05/16/23 08:36 Blood Culture - Preliminary Blood 05/16/23 08:36 Blood Culture - Preliminary Blood Assessment and Plan (1) Catheter-associated urinary tract infection Current Visit: Yes Status: Acute Code(s): T83.511A - I/I REACT D/T INDWELLING URETHRAL CATHETER, INIT; N39.0 - URINARY TRACT INFECTION, SITE NOT SPECIFIED SNOMED Code(s): 416395843 (2) Elevated troponin Current Visit: Yes Status: Acute Code(s): R77.8 - OTHER SPECIFIED ABNORMALIT IES OF PLASMA PROTEINS SNOMED Code(s): 763337750 Plan: 1patient [facility] hospital with sepsis in this patient with a fever tachycardia elevated white count source likely catheter associated tract infection in this patient with a history of recurrent UTIs and exposure to antibiotics will need to cover for resistant gram-negative to be likely pathogen 2-patient with multiple antibiotic allergies that would limit the number of antibiotics safe to use 3-Patient blood cultures currently growing gram-negative bacilli with ID and sensitivities pending, also growing staph epi which is more likely contamination 4-Patient did has resolution of his fever and the patient white count is normal repeat blood culture has been negative so far initial blood culture grew per providenci for which the patient is covered with Invanz to continue, cannot use Rocephin as the patient did have documented cephalosporin/Zerbexa ALLERGY, plan will be to continue Invanz on discharge for another 7-10 days Dictation was produced using [employer] dictation software. please excuse any grammatical, word or spelling errors. Time with Patient: Less than 30
--- NOTE | 2023-05-18 16:35 | P.PN ---
Subjective Progress Note Date: 05/18/23 61-year-old male with history of multiple sclerosis, chronic Stein catheter, seizure disorder, bedbound, chronic contractures, PEG tube dependent, presenting with worsening mentation. In the ED, temperature was 102.7, pulse 130, respiratory rate 22, blood pressure 148/80, saturating at 94% on room air. WBC 14.7, hemoglobin 13.2, sodium 136, bicarb 21, BUN 39, creatinine 1.01, lactate 4, troponin 0.155. Chest x-ray shows poor respiratory effort, no significant opacity. Head CT shows no acute process. Urinalysis showed large leukocyte esterase. Patient admitted for sepsis likely secondary to urinary tract infection. ID consulted. Started on ertapenem per ID. 05/15 Patient was seen and examined. Nonverbal. CBC shows hemoglobin of 10.9. BMP shows chloride of 112, BUN of 22, glucose 146, calcium 7.8. Urine culture gram-negative bacilli. Blood culture gram-negative bacilli with coagulation negative staph. He is continued on ertapenem 1 g IV daily. IV hydration with normal saline at 100 mL per hour. 05/16 Patient was seen and examined. Non verbal. Abdominal distention noted, KUB showing ileus, TF held. CXR negative. CBC shows hemoglobin of 10.3. BMP shows Na 146, chloride of 114, glucose 110, calcium 7.9. UCx growing providencia stuartii. 05/17 Patient was seen and examined. Non verbal. TF continue to be held. Started on Reglan IV scheduled yesterday for ileus. Sluggish bowel sounds noted. RN reports patient is passing gas. BMP shows chloride of 113, bicarb 21, glucose 102, calcium 7.9. BCx 05/16 prelim negative so far. 05/18 Patient was seen and examined. Non verbal. TF restarted at 10 mL per hour with no residual, increased to 20 mL per hour. Continued on Reglan IV scheduled yesterday for ileus. Ileus appears to be resolving. Case discussed with Dr. Farah, continue Invanz to be continued for another 7-10 days on discharge. Midline already placed on 05/16. Repeat blood cultures negative so far. Possible discharge tomorrow. General: nontoxic, no distress, appears at stated age, nonverbal Derm: warm, dry, PEG tube site appears clean, dry Head: atraumatic, normocephalic, symmetric Eyes: EOMI, no lid lag, anicteric sclera ENT: Nose and ears atraumatic Neck: No thyromegaly, supple Cardiovascular: S1S2 reg, no murmur, no edema Abdominal distention with sluggish bowel sounds. Lungs: Bilateral rhonchi, no rales, no wheeze, no accessory muscle use Neuro: Severe contractures Psych: Nonverbal Ileus Sepsis secondary to urinary tract infection Acute metabolic encephalopathy Elevated troponin History of dementia History of MS PEG tube dependent Seizure disorder Based on my assessment of this patient, this patient meets a high complexity level of care. Patient has an acute diagnosis of UTI sepsis with gram negative bacteremia and troponemia that poses a threat to life or bodily function. Ileus: Noted on KUB. Continue reglan 4 mg IV Q6H. TF restarted. Monitor residuals. Surgery on board. Sepsis secondary to urinary tract infection: D5 1/2 NS at 50 cc/hr. Continue ertapenem 1 g IV daily. Repeat BCx negative so far. Telemetry monitoring. ID on board. Gram negative bacteremia: Management as above. Acute metabolic encephalopathy: Related to above. Elevated troponin: Flat. Unable to obtain Echo. Cardiology on board. Continue ASA, Lipitor and Metoprolol. History of dementia History of MS PEG tube dependent Seizure disorder I have reviewed the following systems management consultant notes: I have reviewed the results of the following tests: BCx as above. I have ordered the following tests: CBC and BMP ordered for tomorrow morning. I have discussed the care of this patient with the following independent historian: Case discussed with RN. I have independently interpreted the following test below: I have discussed the management of this patient with the following physician: Case discussed with Dr. Farah and Dr. Case. Objective - Vital Signs Vital signs: Vital Signs Temp 98 F 05/18/23 08:00 Pulse 79 05/18/23 15:24 Resp 16 05/18/23 12:00 BP 125/80 05/18/23 12:00 Pulse Ox 98 05/18/23 12:00 FiO2 Intake & Output 05/17/23 05/18/23 05/18/23 18:59 06:59 18:59 Output Total 1400 Balance -1400 Weight 90.718 kg 90.718 kg Output: Urine 1400 Other: Voiding Method Indwelling Catheter Indwelling Catheter Indwelling Catheter - Labs CBC & Chem 7: 05/16/23 08:36 05/17/23 08:22 Labs: Microbiology - Last 24 Hours (Table) 05/16/23 08:36 Blood Culture - Preliminary Blood 05/16/23 08:36 Blood Culture - Preliminary Blood 05/13/23 11:53 Blood Culture Gram Stain - Final Blood Blood Culture - Final Providencia stuartii Staph capitis SS capitis 05/13/23 11:45 Blood Culture Gram Stain - Final Blood Blood Culture - Final Providencia stuartii Staph capitis SS capitis
[2023-05-18] MEDS: FAMOTIDINE 20 MG TAB PEG/G-TUBE SCH (20:27)
[2023-05-19] MEDS: HEPARIN SODIUM,PORCINE 5,000 UNIT/ML 1 ML VIAL SQ SCH ×2 (00:40→09:42)
[2023-05-19] MEDS: METOCLOPRAMIDE 5 MG/ML 2 ML VIAL IVP SCH ×2 (00:40→05:11)
[2023-05-19] MEDS: DEXTROSE 5%-0.45% NACL 1,000 ML IV SCH (03:06)
[2023-05-19] MEDS: IPRATROPIUM-ALBUTEROL 3 ML NEB INHALATION SCH ×3 (04:42→12:35)
[2023-05-19] MEDS: BACLOFEN 10 MG TAB PEG/G-TUBE SCH (05:11)
[2023-05-19] MEDS: ASPIRIN 81 MG PEG/G-TUBE SCH (09:42)
[2023-05-19] MEDS: LACOSAMIDE 150 MG TABLET PEG/G-TUBE SCH (09:42)
[2023-05-19] MEDS: METOPROLOL TARTRATE 50 MG TAB PEG/G-TUBE SCH (09:42)
[2023-05-19] MEDS: ATORVASTATIN 40 MG TAB PO SCH (09:42)
[2023-05-19] MEDS: LACTULOSE 20 GM/30 ML CUP PEG/G-TUBE SCH (09:43)
--- NOTE | 2023-05-19 10:06 | P.PN ---
Progress Note - Text Progress Note Date: 05/19/23 Patient's tube feeds are at goal. On exam vital signs are stable. Abdomen soft nontender Resolving ileus. Patient will be stable for discharge per the medical service.
[2023-05-19 10:16] VITALS: BP 134/85; PULSE 77; RESP 24; TEMP 97.9
--- NOTE | 2023-05-19 11:30 | XR ---
EXAMINATION TYPE: XR chest 1V portable DATE OF EXAM: 05/19/2023 11:08 AM COMPARISON: Chest radiographs from 05/15/2023 TECHNIQUE: XR chest 1V portable Portable AP radiograph of the chest. CLINICAL INDICATION:Male, 62 years old with history of SOB; FINDINGS: Lungs/Pleura: There is no evidence of pleural effusion, focal consolidation, or pneumothorax. Chroni c senescent parenchyma change. Right midlung scarring. Pulmonary vascularity: Unremarkable. Heart/mediastinum: Cardiomediastinal silhouette is prominent in size. Musculoskeletal: No acute osseous pathology. IMPRESSION: Chronic changes without evidence for acute process.
--- NOTE | 2023-05-19 11:39 | P.DS ---
Providers Date of admission: 05/13/23 12:48 Expected date of discharge: 05/19/23 Attending physician: Jr Ellsworth MD Consults: 05/13/23 13:08 Consult Physician Urgent Consulting Provider: [facility] Consult Reason/Comments: elevated trop Do you want consulting provider notified?: Yes Consult Physician Urgent Consulting Provider: Sonal Farah Consult Reason/Comments: sepsis Do you want consulting provider notified?: Yes 05/16/23 13:07 Consult Physician Routine Consulting Provider: Enrique Case Consult Reason/Comments: ileus Do you want consulting provider notified?: Yes Primary care physician: Physician Nonstaff Hospital Course: 61-year-old male with history of multiple sclerosis, chronic Stein catheter, seizure disorder, bedbound, chronic contractures, PEG tube dependent, presenting with worsening mentation. In the ED, temperature was 102.7, pulse 130, respiratory rate 22, blood pressure 148/80, saturating at 94% on room air. WBC 14.7, hemoglobin 13.2, sodium 136, bicarb 21, BUN 39, creatinine 1.01, lactate 4, troponin 0.155. Chest x-ray shows poor respiratory effort, no significant opacity. Head CT shows no acute process. Urinalysis showed large leukocyte esterase. Patient admitted for sepsis likely secondary to urinary tract infection. ID consulted. Started on ertapenem per ID. 05/15 Patient was seen and examined. Nonverbal. CBC shows hemoglobin of 10.9. BMP shows chloride of 112, BUN of 22, glucose 146, calcium 7.8. Urine culture gram-negative bacilli. Blood culture gram-negative bacilli with coagulation negative staph. He is continued on ertapenem 1 g IV daily. IV hydration with normal saline at 100 mL per hour. 05/16 Patient was seen and examined. Non verbal. Abdominal distention noted, KUB showing ileus, TF held. CXR negative. CBC shows hemoglobin of 10.3. BMP shows Na 146, chloride of 114, glucose 110, calcium 7.9. UCx growing providencia stuartii. 05/17 Patient was seen and examined. Non verbal. TF continue to be held. Started on Reglan IV scheduled yesterday for ileus. Sluggish bowel sounds noted. RN reports patient is passing gas. BMP shows chloride of 113, bicarb 21, glucose 102, calcium 7.9. BCx 05/16 prelim negative so far. 05/18 Patient was seen and examined. Non verbal. TF restarted at 10 mL per hour with no residual, increased to 20 mL per hour. Continued on Reglan IV scheduled yesterday for ileus. Ileus appears to be resolving. Case discussed with Dr. Farah, continue Invanz to be continued for another 7-10 days on discharge. Midline already placed on 05/16. Repeat blood cultures negative so far. Possible discharge tomorrow. 05/19 Patient was seen and examined. Patient is tolerating his tube feeds well and is almost at goal. He has great bowel sounds. Ileus appears to have resolved. Chest x-ray done for course breath sounds which shows no acute process. Plans for discharge to [facility] today with Invanz 1g IV for 9 more days to complete a total of 15 days IV antibiotics as per Dr. Farah's request. Pertinent studies include chest x-ray, brain CT, KUB. General: nontoxic, no distress, appears at stated age, nonverbal Derm: warm, dry, PEG tube site appears clean, dry Head: atraumatic, normocephalic, symmetric Eyes: EOMI, no lid lag, anicteric sclera ENT: Nose and ears atraumatic Neck: No thyromegaly, supple Cardiovascular: S1S2 reg, no murmur, no edema Abdominal distention with sluggish bowel sounds. Lungs: Coarse BS BL but appears upper airway, no rales, no wheeze, no accessory muscle use Neuro: Severe contractures Psych: Nonverbal Discharge diagnosis: Ileus Sepsis secondary to urinary tract infection Gram-negative bacteremia Acute metabolic encephalopathy Elevated troponin History of dementia History of MS PEG tube dependent Seizure disorder This complex discharge took 35 minutes to complete. Patient Condition at Discharge: Stable Plan - Discharge Summary New Discharge Prescriptions: New Ertapenem [INVanz] 1 gm IVPB DAILY@1200 9 Days each Atorvastatin [Lipitor] 40 mg PO DAILY tab Continue Ipratropium-Albuterol Nebulize [Duoneb 0.5 mg-3 mg/3 ml Soln] 3 ml INHALATION RT-Q4H Aspirin 81 mg PEG/G-TUBE DAILY@0900 Acetaminophen Tab [Tylenol] 650 mg PEG/G-TUBE Q4H PRN PRN Reason: Fever And/ Or Pain carBAMazepine [carBAMazepine Oral Susp] 100 mg PEG/G-TUBE TID@0600,1400,2200 Amantadine Hcl Solution 50mg/5ml 100 mg PEG/G-TUBE DAILY@0900 Scopolamine [Scopolamine 1 MG/72 HR patch] 1 patch TRANSDERM Q72H Lactulose 20 gm PEG/G-TUBE TID@0900,1700,2099 Lacosamide [Vimpat] 150 mg PEG/G-TUBE BID@09,2100 #4 tab Metoprolol Tartrate [Lopressor] 50 mg PEG/G-TUBE BID@09,2099 Baclofen [Lioresal] 5 mg PEG/G-TUBE TID@0600,1400,2200 tab oxyBUTYnin chloride 5 mg PEG/G-TUBE TID@0600,1400,2199 Famotidine [Pepcid] 20 mg PEG/G-TUBE HS@2100 Discharge Medication List Ipratropium-Albuterol Nebulize [Duoneb 0.5 mg-3 mg/3 ml Soln] 3 ml INHALATION RT-Q4H 12/16/19 [History] Aspirin 81 mg PEG/G-TUBE DAILY@0900 11/27/20 [History] Acetaminophen Tab [Tylenol] 650 mg PEG/G-TUBE Q4H PRN 06/13/21 [History] Metoprolol Tartrate [Lopressor] 50 mg PEG/G-TUBE BID@0900,209906/13/21 [History] carBAMazepine [carBAMazepine Oral Susp] 100 mg PEG/G-TUBE TID@0600,1400,2200 07/02/21 [History] Amantadine Hcl Solution 50mg/5ml 100 mg PEG/G-TUBE DAILY@0900 12/22/21 [History] Lactulose 20 gm PEG/G-TUBE TID@0900,1700,2100 01/03/22 [History] Scopolamine [Scopolamine 1 MG/72 HR patch] 1 patch TRANSDERM Q72H 01/03/22 [History] Baclofen [Lioresal] 5 mg PEG/G-TUBE TID@0600,1400,2200 tab 05/03/22 [Rx] Lacosamide [Vimpat] 150 mg PEG/G-TUBE BID@09,2100 #4 tab 05/03/22 [Rx] oxyBUTYnin chloride 5 mg PEG/G-TUBE TID@0600,1400,2200 12/19/22 [History] Famotidine [Pepcid] 20 mg PEG/G-TUBE HS@2100 05/13/23 [History] Atorvastatin [Lipitor] 40 mg PO DAILY tab 05/19/23 [Rx] Ertapenem [INVanz] 1 gm IVPB DAILY@1200 9 Days each 05/19/23 [Rx] Follow up Appointment(s)/Referral(s): Nonstaff,Physician [Primary Care Provider] - 1-2 days Sonal Farah MD [STAFF PHYSICIAN] - 1 Week Activity/Diet/Wound Care/Special Instructions: Diet: TF at 65 cc/hr, increase to goal of 75 cc/hr. Monitor for bowel sounds and bowel movements. Invanz 1g IV QD for 7 days. Remove midline after completion of antibiotics. Follow up with Dr. Farah within 1 week of discharge. Discharge Disposition: TRANSFER TO SNF/ECF
--- NOTE | 2023-05-19 14:43 | P.PN ---
Subjective Progress Note Date: 05/19/23 Principal diagnosis: Catheter associated UTI and bacteremia Patient is a 62-year-old male with a past medical history significant for MS seizure disorder in this patient who is bedbound long term resident history of recurrent UTI and pneumonia patient has been sent to the ER for evaluation of decreased urine output , patient did have a positive UA fever concerning for catheter associated UTI subsequently blood cultures Gram-positive and gram-negative bacilli. On today's evaluation that is 05/19/2023, the patient remains to be afebrile patient is breathing comfortably did have a congested cough but no sputum production reported has been tolerating his tube feeds no vomiting diarrhea or any other changes reported by the nursing staff patient himself cannot provide any history. Did not have any blood draw today repeat blood culture has been negative. Objective - Vital Signs Vital signs: Vital Signs Temp 98.5 F 05/19/23 04:00 Pulse 80 05/19/23 04:53 Resp 22 05/19/23 04:00 BP 123/67 05/19/23 04:00 Pulse Ox 98 05/19/23 04:00 FiO2 Intake & Output 05/18/23 05/19/23 05/19/23 18:59 06:59 18:59 Intake Total 20 Output Total 700 475 Balance -700 -455 Weight 90.718 kg Intake: IV 20 Invasive Line 2 10 Invasive Line 5 10 Output: Urine 700 475 Other: Voiding Method Indwelling Catheter Indwelling Catheter # Bowel Movements 1 - Exam GENERAL DESCRIPTION: Middle-age male lying in bed in no distress RESPIRATORY SYSTEM: Unlabored breathing , decreased breath sounds at bases HEART: S1 S2 regular rate and rhythm , ABDOMEN: Soft , no tenderness EXTREMITIES: No edema feet - Labs CBC & Chem 7: 05/16/23 08:36 05/17/23 08:22 Labs: Microbiology - Last 24 Hours (Table) 05/16/23 08:36 Blood Culture - Preliminary Blood 05/16/23 08:36 Blood Culture - Preliminary Blood Assessment and Plan (1) Catheter-associated urinary tract infection Current Visit: Yes Status: Acute Code(s): T83.511A - I/I REACT D/T INDWELLING URETHRAL CATHETER, INIT; N39.0 - URINARY TRACT INFECTION, SITE NOT SPECIFIED SNOMED Code(s): 586915061 (2) Elevated troponin Current Visit: Yes Status: Acute Code(s): R77.8 - OTHER SPECIFIED ABNORMALITIES OF PLASMA PROTEINS SNOMED Code(s): 413845918 Plan: 1patient [facility] with sepsis in this patient with a fever tachycardia elevated white count source likely catheter associated tract infection in this patient with a history of recurrent UTIs and exposure to antibiotics will need to cover for resistant gram-negative to be likely pathogen 2-patient with multiple antibiotic allergies that would limit the number of antibiotics safe to use 3-Patient blood cultures also growing staph epi which is more likely contamination, reepat Negative 4-Patient did has resolution of his fever and the patient white count is normal repeat blood culture has been negative so far initial blood culture grew per debbie carter for which the patient is covered with Invanz to continue on discharge to finish a total of 10 day course of therapy Dictation was produced using [employer] dictation software. please excuse any grammatical, word or spelling errors. Time with Patient: Less than 30
--- NOTE | 2023-05-22 09:51 | CDI ---
Documentation Clarification Form Date: 05/22/23 From: Katia Hernandez Admit Date: 05/13/2023 12:48:00 PM Patient Name: Chris Marvin Visit Number: [id number] Discharge Date: 05/19/2023 03:00:00 PM ATTENTION: The Clinical Documentation Specialists (CDI) and [facility] Coding Staff appreciate your assistance in clarifying documentation. Please respond to the clarification below the line at the bottom and electronically sign. The CDI & [facility] Coding staff will review the response and follow-up if needed. Please note: Queries are made part of the Legal Health Record. If you have any questions, please contact the author of this message via ITS. Dr. Bernabe Newberry, A right heel pressure ulcer stage II is documented by Nursing Wound Care on 05/13. Based on this information and the findings below, is there an additional diagnosis that is clinically appropriate for this patient? History/Risk Factors: MS w chronic contractures, chronic UTIs w chronic indwelling catheter, neurogenic bladder, bedridden Clinical Indicators: right heel pressure ulcer stage II Location: right heel Wound description: Stage II Treatment: Evaluated by wound care nursing Is there an additional diagnosis that is clinically appropriate for this patient? [ x ] Right Heel Pressure Ulcer Stage 2 [ ] Other condition, please specify [ ] Unable to determine Clinical Definitions: Stage 1 Pressure Ulcer: intact skin, non-blanching redness of local area Stage 2 Pressure Ulcer: Partial thickness, loss of dermis, pink wound bed Stage 3 Pressure Ulcer: Full thickness tissue loss Stage 4 Pressure Ulcer: Full thickness tissue loss with exposed bone, tendon, or muscle. Unstageable pressure ulcer: Full thickness tissue loss in which the base of the ulcer is covered by slough (yellow, vaz, suarez, green or brown) and/or eschar (vaz, brown or black) in the wound bed. MTDD
== END 2023-05-19 15:00 | DRG 698 ==
LOC: EC 10:52 → EEVIPCON 12:48 → 3SCARD 12:48
PROVIDERS: ADMIT Student in an Organized Health Care Education/Training Program; ATTEND Student in an Organized Health Care Education/Training Program
PROC: 05HC33Z Insertion of Infusion Device into Left Basilic Vein, Percutaneous Approach (ICD-10-PCS; 2023-05-16 12:00)
PROC: 05H933Z Insertion of Infusion Device into Right Brachial Vein, Percutaneous Approach (ICD-10-PCS; principal; 2023-05-17 16:00)
DX: T83.518A Infection and inflammatory reaction due to other urinary catheter, initial encounter (principal); A41.50 Gram-negative sepsis, unspecified; G93.41 Metabolic encephalopathy; E87.0 Hyperosmolality and hypernatremia; I5A Non-ischemic myocardial injury (non-traumatic); N39.0 Urinary tract infection, site not specified; F03.93 Unspecified dementia, unspecified severity, with mood disturbance; Z43.1 Encounter for attention to gastrostomy; K56.7 Ileus, unspecified; L89.612 Pressure ulcer of right heel, stage 2; G35 Multiple sclerosis; G40.909 Epilepsy, unspecified, not intractable, without status epilepticus; N31.9 Neuromuscular dysfunction of bladder, unspecified; I10 Essential (primary) hypertension; R13.10 Dysphagia, unspecified; K21.9 Gastro-esophageal reflux disease without esophagitis; R15.9 Full incontinence of feces; R47.1 Dysarthria and anarthria; M24.50 Contracture, unspecified joint; Z79.82 Long term (current) use of aspirin; Z79.899 Other long term (current) drug therapy; Z87.440 Personal history of urinary (tract) infections; Z87.01 Personal history of pneumonia (recurrent); Z86.718 Personal history of other venous thrombosis and embolism; Z86.14 Personal history of Methicillin resistant Staphylococcus aureus infection; Z86.19 Personal history of other infectious and parasitic diseases; Z74.01 Bed confinement status; Z88.1 Allergy status to other antibiotic agents; Y84.6 Urinary catheterization as the cause of abnormal reaction of the patient, or of later complication, without mention of misadventure at the time of the procedure
CPT/HCPCS: 36410; 36415; 70450; 71045; 71046; 74018; 76937; 80048; 80053; 81001; 82140; 82607; 83605; 83735; 84443; 84484; 85025; 85027; 85610; 85730; 87040; 87077; 87086; 87186; 93005; 94640; 96361; 96365; 96375; 99285

== ENCOUNTER 2023-07-14 11:21 | Inpatient (IN) | payer MEDICARE, OTHER ==
[2023-07-14] MEDS ORDERED: ACETAMINOPHEN IV (For NPO) 1,000 MG in EMPTY BAG 1 BAG IVPB STA (11:29)
--- NOTE | 2023-07-14 11:31 | ED ---
General Adult HPI - General Chief complaint: Shortness of Breath Stated complaint: dyspnea Time Seen by Provider: 07/14/23 11:26 Source: patient, EMS, RN notes reviewed Mode of arrival: EMS Limitations: altered mental status - History of Present Illness Initial comments: Patient is a pleasant 63-year-old male presents emergency department with concern for fever. Onset is unclear. Patient presents to senior care. Patient was in the hospital a few weeks ago with similar problems. Patient does not offer any significant history. Patient is reported normally alert and oriented 1. Patient provides no information at this time. - Related Data Home Medications Medication Instructions Recorded Confirmed Ipratropium-Albuterol Nebulize 3 ml INHALATION RT-Q4H 12/16/19 07/14/23 [Duoneb 0.5 mg-3 mg/3 ml Soln] Aspirin 81 mg PEG/G-TUBE DAILY@0900 11/27/20 07/14/23 Acetaminophen Tab [Tylenol] 650 mg PEG/G-TUBE Q4H PRN 06/13/21 07/14/23 Metoprolol Tartrate [Lopressor] 50 mg PEG/G-TUBE BID@0900,2100 06/13/21 07/14/23 carBAMazepine [carBAMazepine Oral 100 mg PEG/G-TUBE 07/02/21 07/14/23 Susp] TID@0600,1400,2200 Amantadine Hcl Solution 50mg/5ml 100 mg PEG/G-TUBE DAILY@0900 12/22/21 07/14/23 Lactulose 20 gm PEG/G-TUBE TID@0900,1700,2100 01/03/22 07/14/23 Scopolamine [Scopolamine 1 MG/72 2 patch TRANSDERM Q72H 01/03/22 07/14/23 HR patch] oxyBUTYnin chloride 5 mg PEG/G-TUBE TID@0600,1400,2200 12/19/22 07/14/23 Atorvastatin [Lipitor] 40 mg PEG/G-TUBE DAILY 07/14/23 07/14/23 Famotidine [Pepcid] 20 mg PEG/G-TUBE DAILY 07/14/23 07/14/23 Previous Rx's Medication Instructions Recorded Baclofen [Lioresal] 5 mg PEG/G-TUBE TID@0600,1400,2200 05/03/22 tab Lacosamide [Vimpat] 150 mg PEG/G-TUBE BID@0900,2100 #4 05/03/22 tab Allergies Allergy/AdvReac Type Severity Reaction Status Date / Time meropenem [From Merrem] Allergy Rash/Hives Verified 07/14/23 12:25 ceftolozane [From Zerbaxa] AdvReac Rapid Verified 07/14/23 12:25 Heart Rate tazobactam [From Zerbaxa] AdvReac Rapid Verified 07/14/23 12:25 Heart Rate Review of Systems ROS Statement: Those systems with pertinent positive or pertinent negative responses have been documented in the HPI. ROS Other: All systems not noted in ROS Statement are negative. Limitations: ROS unobtainable due to patients medical condition Constitutional: Reports: fever Past Medical History Past Medical History: Deep Vein Thrombosis (DVT), GERD/Reflux, Hypertension, Musculoskeletal Disorder, Neurologic Disorder, Pneumonia, Seizure Disorder, Skin Disorder Additional Past Medical History / Comment(s): Pt diagnosed with MS at the age of 39 yrs, seizure/pneumonia/UTI with sepsis/respirtory failure/vented, cognitive impairment, sister states when he is feeling well he could speak a few words/nod head appropriately/give thumbs up/roll eyes but when ill is nonverbal, pt has dysphagia/NPO with peg tube, contractures, last seizure 07/2020, trigeminal neuralgia, dysarthria/anarthria/neurogenic bladder with IDC-UTIs/sepsis, multiple pneumonias, recent seizure-last one 07/03/20, incontinent of stool, pt has had decubitus ulcer coccyx-sister unsure of skin condition at this time, past anemia r/t heparin/epistaxiis which involved nasal packing/transfusions, DVT bilateral arms, hypoxia, oxygen at 2L/NC, L femoral head fracture History of Any Multi-Drug Resistant Organisms: ESBL, MRSA, Other MDRO Date of last positivie culture/infection: 03/09/21-MRSA; 11/23/19 ESBL-E.coli MDRO Source:: Abdomen-Peg site MRSA; Urine -ESBL Past Surgical History: Tonsillectomy Additional Past Surgical History / Comment(s): Gastrostomy, peg tube, I&D coccyx decubitius, bronchoscopy, bilateral lasik eye surgery. Past Anesthesia/Blood Transfusion Reactions: No Reported Reaction Additional Past Anesthesia/Blood Transfusion Reaction / Comment(s): Pt has received blood in past without reaction. Past Psychological History: Depression Smoking Status: Never smoker Past Alcohol Use History: None Reported Past Drug Use History: None Reported - Past Family History Father Family Medical History: Myocardial Infarction ([place]) Mother Family Medical History: Hypertension, Myocardial Infarction ([place]) Additional Family Medical History / Comment(s): Mother of a [place] at the age of 73 yrs. General Exam Limitations: altered mental status General appearance: alert Head exam: Present: normocephalic Eye exam: Present: normal appearance Neck exam: Present: normal inspection Respiratory exam: Present: rales Cardiovascular Exam: Present: regular rate, normal rhythm GI/Abdominal exam: Present: soft. Absent: tenderness Extremities exam: Present: other (Contracted extremities) Expanded Eye Response: (4) open spontaneously Motor Response: (4) withdraws to pain Verbal Response: (1) no verbal response Psychiatric exam: Present: flat affect Skin exam: Present: normal color Course Vital Signs 07/14/23 07/14/23 07/14/23 11:24 12:00 12:30 Temperature 101.7 F H Pulse Rate 93 89 89 Respiratory 20 24 26 H Rate Blood Pressure 148/107 149/98 125/85 O2 Sat by Pulse 99 97 98 Oximetry 07/14/23 07/14/23 12:32 13:00 Temperature Pulse Rate 89 86 Respiratory 18 24 Rate Blood Pressure 122/82 119/82 O2 Sat by Pulse 98 99 Oximetry EKG Findings - EKG Results: EKG: interpreted by ERMD (Left axis), sinus rhythm, normal QRS, normal ST/T Medical Decision Making - Medical Decision Making Was pt. sent in by a medical professional or institution (, PA, [employer], urgent care, hospital, or senior care...) When possible be specific @ -Patient was sent from nursing facility Did you speak to anyone other than the patient for history (EMS, parent, family, police, friend...)? What history was obtained from this source @ -Family later arrives and confirms patient is full code. Did you review nursing and triage notes (agree or disagree)? Why? @ -I reviewed and agree with nursing and triage notes Were old charts reviewed (outside hosp., previous admission, EMS record, old EKG, old radiological studies, urgent care reports/EKG's, senior care records)? Report findings @ -Previous admission reviewed Differential Diagnosis (chest pain, altered mental status, abdominal pain women, abdominal pain men, vaginal bleeding, weakness, fever, dyspnea, syncope, headach e, dizziness, GI bleed, back pain, seizure, CVA, palpatations, mental health, musculoskeletal)? @ -Differential Dyspnea: Coronary syndrome, arrhythmia, tamponade, asthma, COPD, pulmonary embolism, pneumonia, pneumothorax, pulmonary effusion, anaphylaxis, diabetic ketoacidosis, flailed chest, pulmonary contusion, diaphragmatic rupture, anemia, neuromuscular, this is not meant to be an all-inclusive list. EKG interpreted by me (3pts min.). @ -As above X-rays interpreted by me (1pt min.). @ -Chest x-ray shows hilar and basilar infiltrate CT interpreted by me (1pt min.). @ -None done U/S interpreted by me (1pt. min.). @ -None done What testing was considered but not performed or refused? (CT, X-rays, U/S, labs)? Why? @ -COVID-19 testing is still pending What meds were considered but not given or refused? Why? @ -None Did you discuss the management of the patient with other professionals (professionals i.e. , PA, [employer], lab, RT, psych nurse, school social worker, watch crystal molder, teacher, transportation officer, lead case manager)? Give summary @ -Case was discussed with Dr. Alvarez, who will admit covering hospital call. Was smoking cessation discussed for >3mins.? @ -No Was critical care preformed (if so, how long)? @ -31minutes critical care time Were there social determinants of health that impacted care today? How? (Homelessness, low income, unemployed, alcoholism, drug addiction, transportation, low edu. Level, literacy, decrease access to med. care, care home, rehab)? @ -No Was there de-escalation of care discussed even if they declined (Discuss DNR or withdrawal of care, Hospice)? DNR status @ -No What co-morbidities impacted this encounter? (DM, HTN, Smoking, COPD, CAD, Cancer, CVA, ARF, Chemo, Hep., AIDS, mental health diagnosis, sleep apnea, morbid obesity)? @ -None Was patient admitted / discharged? Hospital course, mention meds given and route, prescriptions, significant lab abnormalities, going to OR and other pertinent info. @ -Patient evaluated. Patient is alert. Patient family updated. Patient will be admitted with IV antibiotics. There is concern for sepsis diagnosed at 1400. Blood culture and lactic acid and IV antibiotics will be started. Patient will be admitted with IV antibiotics. Admission orders are Undiagnosed new problem with uncertain prognosis? @ -No Drug Therapy requiring intensive monitoring for toxicity (Heparin, Nitro, Insulin, Cardizem)? @ -No Were any procedures done? @ -No Diagnosis/symptom? @ -Pneumonia, sepsis Acute, or Chronic, or Acute on Chronic? @ -Acute, acute Uncomplicated (without systemic symptoms) or Complicated (systemic symptoms)? @ -default Side effects of treatment? @ -No Exacerbation, Progression, or Severe Exacerbation? @ -No Poses a threat to life or bodily function? How? (Chest pain, [place], [place], pneumonia, PE, COPD, DKA, ARF, appy, cholecystitis, CVA, Diverticulitis, Homicidal, Suicidal, threat to staff... and all critical care pts) @ -No - Lab Data Result diagrams: 07/14/23 11:35 07/14/23 11:35 Lab Results 07/14/23 07/14/23 07/14/23 Range/Units 11:28 11:35 11:35 WBC 17.3 H (3.8-10.6) k/uL RBC 6.09 H (4.30-5.90) m/uL Hgb 15.4 D (13.0-17.5) gm/dL Hct 48.8 (39.0-53.0) % MCV 80.2 D (80.0-100.0) fL MCH 25.3 (25.0-35.0) pg MCHC 31.5 (31.0-37.0) g/dL RDW 16.0 H (11.5-15.5) % Plt Count 383 (150-450) k/uL MPV 8.9 Neutrophils % 88 % Lymphocytes % 3 % Monocytes % 6 % Eosinophils % 1 % Basophils % 0 % Neutrophils # 15.3 H (1.3-7.7) k/uL Lymphocytes # 0.6 L (1.0-4.8) k/uL Monocytes # 1.1 H (0-1.0) k/uL Eosinophils # 0.1 (0-0.7) k/uL Basophils # 0.0 (0-0.2) k/uL Hypochromasia Moderate Anisocytosis Slight PT 11.0 (10.0-12.5) sec INR 1.0 (<1.2) APTT 22.3 (22.0-30.0) sec Sodium (137-145) mmol/L Potassium (3.5-5.1) mmol/L Chloride (98-107) mmol/L Carbon Dioxide (22-30) mmol/L Anion Gap mmol/L BUN (9-20) mg/dL Creatinine (0.66-1.25) mg/dL Est GFR (CKD-EPI)AfAm (>60 ml/min/1.73 sqM) Est GFR (CKD-EPI)NonAf (>60 ml/min/1.73 sqM) Glucose (74-99) mg/dL POC Glucose (mg/dL) (70-110) mg/dL POC Glu Manager Hvac ID Plasma Lactic Acid Taurus (0.7-2.0) mmol/L Calcium (8.4-10.2) mg/dL Total Bilirubin (0.2-1.3) mg/dL AST (17-59) U/L ALT (4-49) U/L Alkaline Phosphatase (38-126) U/L Total Protein (6.3-8.2) g/dL Albumin (3.5-5.0) g/dL Urine Color Yellow Urine Appearance Cloudy (Clear) Urine pH 8.0 (5.0-8.0) Ur Specific Douglas 1.013 (1.001-1.035) Urine Protein 1+ H (Negative) Urine Glucose (UA) Negative (Negative) Urine Ketones Negative (Negative) Urine Blood Trace H (Negative) Urine Nitrite Positive (Negative) Urine Bilirubin Negative (Negative) Urine Urobilinogen <2.0 (<2.0) mg/dL Ur Leukocyte Esterase Large H (Negative) Urine RBC 31 H (0-5) /hpf Urine WBC 68 H (0-5) /hpf Triple Phos Crystals Moderate H (None) /hpf Urine Bacteria Moderate H (None) /hpf Urine Mucus Rare H (None) /hpf 07/14/23 07/14/23 07/14/23 Range/Units 11:35 11:35 11:39 WBC (3.8-10.6) k/uL RBC (4.30-5.90) m/uL Hgb (13.0-17.5) gm/dL Hct (39.0-53.0) % MCV (80.0-100.0) fL MCH (25.0-35.0) pg MCHC (31.0-37.0) g/dL RDW (11.5-15.5) % Plt Count (150-450) k/uL MPV Neutrophils % % Lymphocytes % % Monocytes % % Eosinophils % % Basophils % % Neutrophils # (1.3-7.7) k/uL Lymphocytes # (1.0-4.8) k/uL Monocytes # (0-1.0) k/uL Eosinophils # (0-0.7) k/uL Basophils # (0-0.2) k/uL Hypochromasia Anisocytosis PT (10.0-12.5) sec INR (<1.2) APTT (22.0-30.0) sec Sodium 141 (137-145) mmol/L Potassium 5.8 H (3.5-5.1) mmol/L Chloride 109 H (98-107) mmol/L Carbon Dioxide 19 L (22-30) mmol/L Anion Gap 13 mmol/L BUN 31 H (9-20) mg/dL Creatinine 0.82 (0.66-1.25) mg/dL Est GFR (CKD-EPI)AfAm >90 (>60 ml/min/1.73 sqM) Est GFR (CKD-EPI)NonAf >90 (>60 ml/min/1.73 sqM) Glucose 148 H (74-99) mg/dL POC Glucose (mg/dL) 138 H (70-110) mg/dL POC Glu Manager Hvac ID [facility] Plasma Lactic Acid Taurus 1.9 (0.7-2.0) mmol/L Calcium 9.3 (8.4-10.2) mg/dL Total Bilirubin 0.8 (0.2-1.3) mg/dL AST 54 (17-59) U/L ALT 25 (4-49) U/L Alkaline Phosphatase 83 (38-126) U/L Total Protein 8.3 H (6.3-8.2) g/dL Albumin 4.1 (3.5-5.0) g/dL Urine Color Urine Appearance (Clear) Urine pH (5.0-8.0) Ur Specific Douglas (1.001-1.035) Urine Protein (Negative) Urine Glucose (UA) (Negative) Urine Ketones (Negative) Urine Blood (Negative) Urine Nitrite (Negative) Urine Bilirubin (Negative) Urine Urobilinogen (<2.0) mg/dL Ur Leukocyte Esterase (Negative) Urine RBC (0-5) /hpf Urine WBC (0-5) /hpf Triple Phos Crystals (None) /hpf Urine Bacteria (None) /hpf Urine Mucus (None) /hpf Critical Care Time Critical Care Time: Yes Total Critical Care Time: 31 Disposition Clinical Impression: Pneumonia, Sepsis Disposition: ADMITTED IP TO THIS [facility] Condition: Serious Is patient prescribed a controlled substance at d/c from ED?: No Referrals: None,Stated [Primary Care Provider] - 1-2 days Time of Disposition: 14:01
[2023-07-14 11:41] LABS: Glucose,Whole Blood 138 mg/dL (70-110)
[2023-07-14 11:50] LABS: Anisocytosis Slight; Basophils % (A) 0 %; Eosinophils # (A) 0.1 k/uL (0-0.7); Eosinophils % (A) 1 %; HCT 48.8 % (39.0-53.0); Hypochromasia Moderate; Lymphocytes # (A) 0.6 k/uL (1.0-4.8); Lymphocytes % (A) 3 %; MCH 25.3 pg (25.0-35.0); MCHC 31.5 g/dL (31.0-37.0); Mean Platelet Volume 8.9; Monocytes # (A) 1.1 k/uL (0-1.0); Monocytes % (A) 6 %; Neutrophils # (A) 15.3 k/uL (1.3-7.7); Neutrophils % (A) 88 %; Platelet Count 383 k/uL (150-450); RBC 6.09 m/uL (4.30-5.90); WBC 17.3 k/uL (3.8-10.6)
[2023-07-14 12:01] LABS: HGB 15.4 gm/dL (13.0-17.5); MCV 80.2 fL (80.0-100.0)
[2023-07-14 12:13] LABS: Partial Thromboplastin Time 22.3 sec (22.0-30.0)
[2023-07-14 12:20] LABS: ALT 25 U/L (4-49); AST 54 U/L (17-59); African American GFR (CKD) >90 (>60 ml/min/1.73 sqM); Albumin 4.1 g/dL (3.5-5.0); Alkaline Phosphatase 83 U/L (38-126); Anion Gap 13 mmol/L; Blood Urea Nitrogen 31 mg/dL (9-20); Calcium 9.3 mg/dL (8.4-10.2); Carbon Dioxide 19 mmol/L (22-30); Chloride 109 mmol/L (98-107); Glucose 148 mg/dL (74-99); Non-African American GFR(CKD) >90 (>60 ml/min/1.73 sqM); Sodium 141 mmol/L (137-145); Total Bilirubin 0.8 mg/dL (0.2-1.3); Total Protein 8.3 g/dL (6.3-8.2)
[2023-07-14 12:26] LABS: Appearance,Urine Cloudy (Clear); Bacteria,Urine Moderate /hpf; Bilirubin,Urine Negative (Negative); Blood,Urine Trace (Negative); Color,Urine Yellow; Glucose,Urine (UA) Negative (Negative); Ketones,Urine Negative (Negative); Leukocyte Esterase,Urine Large (Negative); Mucus,Urine Rare /hpf; Nitrite,Urine Positive (Negative); Protein,Urine 1+ (Negative); RBC,Urine 31 /hpf (0-5); Specific Gravity,Urine 1.013 (1.001-1.035); Triple Phosphate Crystal,Urine Moderate /hpf; Urobilinogen,Urine <2.0 mg/dL (<2.0); WBC,Urine 68 /hpf (0-5)
[2023-07-14 12:29] LABS: Potassium 5.8 mmol/L (3.5-5.1)
--- NOTE | 2023-07-14 12:30 | XR ---
EXAMINATION TYPE: XR chest 1V portable DATE OF EXAM: 07/14/2023 HISTORY: Shortness of breath. COMPARISON: 05/19/2023 TECHNIQUE: Single view of the chest is submitted. FINDINGS: Demonstrated are scattered senescent parenchymal change. Perihilar and basilar infiltrates noted. Correlate for pneumonia. The heart is stable. Hilar and mediastinal structures are within normal limits. Degenerative changes are seen of the dorsal spine. IMPRESSION: 1. Perihilar and basilar infiltrates noted. Correlate for pneumonia.
[2023-07-14] MEDS: SODIUM CHLORIDE 0.9% 1,000 ML IV SCH ×2 (12:37→19:29)
[2023-07-14] MEDS ORDERED: PNEUMONIA PROTOCOL UTILIZED 1 EACH MISC PO PRN (14:05)
[2023-07-14] MEDS ORDERED: AZITHROMYCIN 500 MG in SODIUM CHLORIDE 0.9% 250 ML IVPB STA (14:05)
[2023-07-14] MEDS: IPRATROPIUM-ALBUTEROL 3 ML NEB INHALATION PRN (19:34)
[2023-07-14] MEDS ORDERED: ACETAMINOPHEN TAB 325 MG TAB PEG/G-TUBE PRN (23:51)
--- NOTE | 2023-07-14 23:58 | P.HPIM ---
History of Present Illness H&P Date: 07/14/23 Chief Complaint: Fever Patient is a 63-year-old male with a past medical history of hypertension, multiple sclerosis, seizure disorder, dementia, chronic indwelling Stein cath eter in 1 history of multiple urinary tract infection, dysphagia on PEG tube, neurogenic bladder. Patient is awake and alert x1 but nonverbal at baseline. Patient [facility] due to patient being lethargic and was having fever. Patient was admitted to hospital in May 2023 with sepsis secondary to urinary tract infection, ileus and elevated troponin levels. Most recent urine cultures on 05/16/2023 are growing Providencia rettgeri stuartii susceptible to ceftriaxone. Chest x-ray showed perihilar and basilar infiltrates noted. Correlate for pneumonia. EKG showed sinus rhythm. Laboratory showed WBC 17.3 hemoglobin 15.4 and platelets 383 Sodium 141 potassium 5.8 with slight hemolysis. Chloride 101 bicarb is 19 BUN 31 and creatinine 0.82 and blood sugar is 148. Liver enzymes are not elevated. Urinalysis showed trace blood positive nitrite large leukocyte esterase with elevated RBCs and WBCs. Influenza A, B, RSV and COVID-19 PCR not detected. Tmax 101.7 on admission. Patient was tachycardic and tachypneic. Review of Systems ROS unobtainable: due to mental status Past Medical History Past Medical History: Deep Vein Thrombosis (DVT), GERD/Reflux, Hypertension, Musculoskeletal Disorder, Neurologic Disorder, Pneumonia, Seizure Disorder, Skin Disorder Additional Past Medical History / Comment(s): Pt diagnosed with MS at the age of 39 yrs, seizure/pneumonia/UTI with sepsis/respirtory failure/vented, cognitive impairment, sister states when he is feeling well he could speak a few words/nod head appropriately/give thumbs up/roll eyes but when ill is nonverbal, pt has dysphagia/NPO with peg tube, contractures, last seizure 07/2020, trigeminal neuralgia, dysarthria/anarthria/neurogenic bladder with IDC-UTIs/sepsis, multiple pneumonias, recent seizure-last one 07/03/20, incontinent of stool, pt has had decubitus ulcer coccyx-sister unsure of skin condition at this time, past anemia r/t heparin/epistaxiis which involved nasal packing/transfusions, DVT bilateral arms, hypoxia, oxygen at 2L/NC, L femoral head fracture History of Any Multi-Drug Resistant Organisms: ESBL, MRSA, Other MDRO Date of last positivie culture/infection: 03/09/21-MRSA; 11/23/19 ESBL-E.coli MDRO Source:: Abdomen-Peg site MRSA; Urine -ESBL Past Surgical History: Tonsillectomy Additional Past Surgical History / Comment(s): Gastrostomy, peg tube, I&D coccyx decubitius, bronchoscopy, bilateral lasik eye surgery. Past Anesthesia/Blood Transfusion Reactions: No Reported Reaction Additional Past Anesthesia/Blood Transfusion Reaction / Comment(s): Pt has received blood in past without reaction. Past Psychological History: Depression Smoking Status: Never smoker Past Alcohol Use History: None Reported Past Drug Use History: None Reported - Past Family History Father Family Medical History: Myocardial Infarction ([place]) Mother Family Medical History: Hypertension, Myocardial Infarction ([place]) Additional Family Medical History / Comment(s): Mother of a [place] at the age of 73 yrs. Medications and Allergies Home Medications Medication Instructions Recorded Confirmed Type Ipratropium-Albuterol Nebulize 3 ml INHALATION RT-Q4H 12/16/19 07/14/23 History [Duoneb 0.5 mg-3 mg/3 ml Soln] Aspirin 81 mg PEG/G-TUBE DAILY@0900 11/27/20 07/14/23 History Acetaminophen Tab [Tylenol] 650 mg PEG/G-TUBE Q4H PRN 06/13/21 07/14/23 History Metoprolol Tartrate [Lopressor] 50 mg PEG/G-TUBE BID@0900,2100 06/13/21 07/14/23 History carBAMazepine [carBAMazepine Oral 100 mg PEG/G-TUBE 07/02/21 07/14/23 History Susp] TID@0600,1400,2200 Amantadine Hcl Solution 50mg/5ml 100 mg PEG/G-TUBE DAILY@0900 12/22/21 07/14/23 History Lactulose 20 gm PEG/G-TUBE TID@0900,1700,2100 01/03/22 07/14/23 History Scopolamine [Scopolamine 1 MG/72 2 patch TRANSDERM Q72H 01/03/22 07/14/23 History HR patch] Baclofen [Lioresal] 5 mg PEG/G-TUBE TID@0600,1400,2200 05/03/22 07/14/23 Rx tab Lacosamide [Vimpat] 150 mg PEG/G-TUBE BID@0900,2100 #4 05/03/22 07/14/23 Rx tab oxyBUTYnin chloride 5 mg PEG/G-TUBE TID@0600,1400,2200 12/19/22 07/14/23 History Atorvastatin [Lipitor] 40 mg PEG/G-TUBE DAILY 07/14/23 07/14/23 History Famotidine [Pepcid] 20 mg PEG/G-TUBE DAILY 07/14/23 07/14/23 History Allergies Allergy/AdvReac Type Severity Reaction Status Date / Time meropenem [From Merrem] Allergy Rash/Hives Verified 07/14/23 12:25 ceftolozane [From Zerbaxa] AdvReac Rapid Verified 07/14/23 12:25 Heart Rate tazobactam [From Zerbaxa] AdvReac Rapid Verified 07/14/23 12:25 Heart Rate Physical Exam Vitals: Vital Signs Temp Pulse Resp BP Pulse Ox 07/14/23 21:00 107 H 20 122/96 100 07/14/23 19:43 99 07/14/23 19:34 96 07/14/23 19:28 93 20 150/97 100 07/14/23 18:19 98.4 F 07/14/23 18:17 88 24 147/98 97 07/14/23 15:00 90 23 137/93 97 07/14/23 14:00 95 18 136/92 97 07/14/23 13:00 86 24 119/82 99 07/14/23 12:32 89 18 122/82 98 07/14/23 12:30 89 26 H 125/85 98 07/14/23 12:00 101.7 F H 89 24 149/98 97 07/14/23 11:24 93 20 148/107 99 Intake and Output 07/14/23 07/14/23 07/14/23 06:59 14:59 22:59 Other: Weight 104.326 kg PHYSICAL EXAMINATION: Patient is lying in the bed, no acute distress, awake alert but nonverbal at baseline. HEENT: Normocephalic. Neck is supple. Pupils reactive. Nostrils clear. Oral cavity is dry. Neck reveals no JVD, carotid bruits, or thyromegaly. CHEST EXAMINATION: Trachea is central. Symmetrical expansion. Bibasilar diminished sounds. No wheezing or rhonchi. Nonlabored breathing.. CARDIAC: Normal S1, S2 with no gallops. No murmurs ABDOMEN: Soft. Bowel sounds present. No organomegaly. No abdominal bruits. Extremities: reveal no edema. Bilateral lower extremities are contracted. No clubbing or cyanosis Neurologically awake, alert x1. Nonverbal. Patient is bedbound. Skin: No rash or skin lesions. Psychiatric: Coperative. Could not be assisted completely. Musculoskeletal: No joint swelling or deformity. Results CBC & Chem 7: 07/15/23 04:05 07/15/23 04:05 Labs: Abnormal Lab Results - Last 24 Hours (Table) 07/14/23 07/14/23 07/14/23 Range/Units 11:28 11:35 11:35 WBC 17.3 H (3.8-10.6) k/uL RBC 6.09 H (4.30-5.90) m/uL RDW 16.0 H (11.5-15.5) % Neutrophils # 15.3 H (1.3-7.7) k/uL Lymphocytes # 0.6 L (1.0-4.8) k/uL Monocytes # 1.1 H (0-1.0) k/uL Potassium 5.8 H (3.5-5.1) mmol/L Chloride 109 H (98-107) mmol/L Carbon Dioxide 19 L (22-30) mmol/L BUN 31 H (9-20) mg/dL Glucose 148 H (74-99) mg/dL POC Glucose (mg/dL) (70-110) mg/dL Total Protein 8.3 H (6.3-8.2) g/dL Urine Protein 1+ H (Negative) Urine Blood Trace H (Negative) Ur Leukocyte Esterase Large H (Negative) Urine RBC 31 H (0-5) /hpf Urine WBC 68 H (0-5) /hpf Triple Phos Crystals Moderate H (None) /hpf Urine Bacteria Moderate H (None) /hpf Urine Mucus Rare H (None) /hpf 07/14/23 Range/Units 11:39 WBC (3.8-10.6) k/uL RBC (4.30-5.90) m/uL RDW (11.5-15.5) % Neutrophils # (1.3-7.7) k/uL Lymphocytes # (1.0-4.8) k/uL Monocytes # (0-1.0) k/uL Potassium (3.5-5.1) mmol/L Chloride (98-107) mmol/L Carbon Dioxide (22-30) mmol/L BUN (9-20) mg/dL Glucose (74-99) mg/dL POC Glucose (mg/dL) 138 H (70-110) mg/dL Total Protein (6.3-8.2) g/dL Urine Protein (Negative) Urine Blood (Negative) Ur Leukocyte Esterase (Negative) Urine RBC (0-5) /hpf Urine WBC (0-5) /hpf Triple Phos Crystals (None) /hpf Urine Bacteria (None) /hpf Urine Mucus (None) /hpf Thrombosis Risk Factor Assmnt - DVT/VTE Prophylaxis DVT/VTE Prophylaxis: Pharmacologic Prophylaxis ordered Assessment and Plan Assessment: Acute urinary tract infection Possible Acute bilateral pneumonia vs fluid load Sepsis secondary to above Neurogenic bladder and history of multiple urinary tract infections Multiple sclerosis at age 39. Currently patient is bedbound Seizure disorder Cognitive impairment Hypertension GERD History of DVT Dysphagia/n.p.o. on PEG tube feeding History of trigeminal neuralgia History of ESBL E. coli urinary tract infections Depression DVT prophylaxis with heparin subcu Plan: Patient will be continued on IV hydration and antibiotics in the form of ceftriaxone and azithromycin. Most recent urine culture showed procidentia which is susceptible to ceftriaxone. Follow-up blood cultures and urine cultures. Continue with home medications. Currently tube feeding and monitor closely. Pulmonary was consulted for evaluation. Prognosis is guarded. Time with Patient: Greater than 30
[2023-07-15] MEDS: HEPARIN SODIUM,PORCINE 5,000 UNIT/ML 1 ML VIAL SQ SCH ×4 (01:49→23:06)
[2023-07-15] MEDS: SODIUM CHLORIDE 0.9% 1,000 ML IV SCH ×2 (01:56→22:25)
--- NOTE | 2023-07-15 06:34 | XR ---
EXAMINATION TYPE: XR chest 1V DATE OF EXAM: 07/15/2023 CLINICAL HISTORY: Difficulty breathing and pneumonia. TECHNIQUE: Single AP portable upright view of the chest is obtained. COMPARISON: Chest x-ray from one day earlier and older studies. FINDINGS: Patchy perihilar opacities remain present. Low lung volumes redemonstrated. Stable mild ca rdiomegaly. Osseous structures are intact. IMPRESSION: Mild cardiomegaly with mild bilateral central perihilar edema and/or less likely infiltra breanne redemonstrated. No significant change from one day earlier. CHF exacerbation would be favored.
[2023-07-15] MEDS: IPRATROPIUM-ALBUTEROL 3 ML NEB INHALATION PRN ×2 (06:39→12:53)
[2023-07-15 08:59] LABS: Basophils # (A) 0.04 X 10*3/uL (0.00-0.10); Basophils % (A) 0.4 %; Eosinophils # (A) 0.49 X 10*3/uL (0.04-0.35); Eosinophils % (A) 4.6 %; HCT 42.4 % (39.6-50.0); HGB 12.4 d/dL (13.0-17.0); Lymphocytes # (A) 0.91 X 10*3/uL (0.90-5.00); Lymphocytes % (A) 8.6 %; MCH 24.5 pg (27.0-32.0); MCHC 29.2 d/dL (32.0-37.0); MCV 83.8 FL (80.0-97.0); Mean Platelet Volume 11.6 FL (9.5-12.2); Monocytes # (A) 1.03 X 10*3/uL (0.20-1.00); Monocytes % (A) 9.7 %; NRBC Per 100 WBC 0 X 10*3/uL (0.00-0.01); Neutrophils # (A) 8.13 X 10*3/uL (1.80-7.70); Neutrophils % (A) 76.4 %; Platelet Count 339 X 10*3/uL (140-440); RBC 5.06 X 10*6/uL (4.40-5.60); RDW 16.2 % (11.5-14.5); WBC 10.63 X 10*3/uL (4.50-10.00)
[2023-07-15 09:47] LABS: BUN/Creat Ratio 24.44 Ratio (12.00-20.00); Calcium 8.9 mg/dL (8.7-10.3); Carbon Dioxide 23.2 mmol/L (21.6-31.8); Chloride 107 mmol/L (96-109); Glucose 105 mg/dL (70-110); Potassium 4.4 mmol/L (3.5-5.5); Sodium 146 mmol/L (135-145)
[2023-07-15] MEDS: LACOSAMIDE 150 MG TABLET PEG/G-TUBE SCH ×2 (10:22→22:24)
[2023-07-15] MEDS: oxyBUTYnin chloride 5 MG TAB PEG/G-TUBE SCH ×3 (10:22→22:24)
[2023-07-15] MEDS: ASPIRIN 81 MG PEG/G-TUBE SCH (10:22)
[2023-07-15] MEDS: ATORVASTATIN 40 MG TAB PEG/G-TUBE SCH (10:23)
[2023-07-15] MEDS: SCOPOLAMINE 1 MG/72 HR PATCH TRANSDERM SCH (10:23)
[2023-07-15] MEDS: METOPROLOL TARTRATE 50 MG TAB PEG/G-TUBE SCH ×2 (10:23→22:24)
[2023-07-15] MEDS: LACTULOSE 20 GM/30 ML CUP PEG/G-TUBE SCH ×3 (10:23→22:24)
[2023-07-15] MEDS: FAMOTIDINE 8 MG/ML ORAL.SUSP PEG/G-TUBE SCH (10:24)
[2023-07-15] MEDS: FUROSEMIDE 10 MG/ML 4 ML VIAL IV SCH ×2 (10:25→22:24)
[2023-07-15] MEDS: AZITHROMYCIN 500 MG TAB PO SCH (10:52)
--- NOTE | 2023-07-15 14:15 | P.CNPUL ---
History of Present Illness Consult date: 07/15/23 Requesting physician: Yair Alvarez Reason for consult: dyspnea, abnormal CXR/CT Chief complaint: Febrile illness History of present illness: This is a 63-year-old gentleman who resides in a group home. He is usually alert and oriented times one. He has a history of seizures, multiple sclerosis, dementia, chronic indwelling Stein catheter, multiple urinary tract infections, dysphagia and nourished via PEG tube, neurogenic bladder. He was brought into the emergency room yesterday with concerns regarding fevers. He did present with a temperature of 101.7. Chest x-ray shows mild cardiomegaly with mild bilateral central perihilar edema and/or infiltrates. White count 10.6. Hemogl obin 12.4. Platelets 339. Sodium 146. Potassium 4.4. Bicarb 23. BUN 22. Creatinine 0.9. Glucose 105. ProBNP 980. Urine with high WBCs and moderate bacteria. Influenza screen negative. RSV screen negative. COVID-19 screen negative. He is seen today in consultation on the regular medical floor. He is currently laying flat in bed. Awake and alert in no acute distress. Maintaining O2 saturations in the 90s on 3 L/m per nasal cannula. He is currently afebrile. Hemodynamically stable. Review of Systems ROS unobtainable: due to mental status Past Medical History Past Medical History: Deep Vein Thrombosis (DVT), GERD/Reflux, Hypertension, Musculoskeletal Disorder, Neurologic Disorder, Pneumonia, Seizure Disorder, Skin Disorder Additional Past Medical History / Comment(s): Pt diagnosed with MS at the age of 39 yrs, seizure/pneumonia/UTI with sepsis/respirtory failure/vented, cognitive impairment, sister states when he is feeling well he could speak a few words/nod head appropriately/give thumbs up/roll eyes but when ill is nonverbal, pt has dysphagia/NPO with peg tube, contractures, last seizure 07/2020, trigeminal neuralgia, dysarthria/anarthria/neurogenic bladder with IDC-UTIs/sepsis, multiple pneumonias, recent seizure-last one 07/03/20, incontinent of stool, pt h as had decubitus ulcer coccyx-sister unsure of skin condition at this time, past anemia r/t heparin/epistaxiis which involved nasal packing/transfusions, DVT bilateral arms, hypoxia, oxygen at 2L/NC, L femoral head fracture History of Any Multi-Drug Resistant Organisms: ESBL, MRSA, Other MDRO Date of last positivie culture/infection: 03/09/21-MRSA; 11/23/19 ESBL-E.coli MDRO Source:: Abdomen-Peg site MRSA; Urine -ESBL Past Surgical History: Tonsillectomy Additional Past Surgical History / Comment(s): Gastrostomy, peg tube, I&D coccyx decubitius, bronchoscopy, bilateral lasik eye surgery. Past Anesthesia/Blood Transfusion Reactions: No Reported Reaction Additional Past Anesthesia/Blood Transfusion Reaction / Comment(s): Pt has received blood in past without reaction. Past Psychological History: Depression Additional Psychological History / Comment(s): Pt resides at [facility]. He normally is in bed/amita lift to wheelchair. Has peg/IDC Smoking Status: Never smoker Past Alcohol Use History: None Reported Past Drug Use History: None Reported - Past Family History Father Family Medical History: Myocardial Infarction ([place]) Mother Family Medical History: Hypertension, Myocardial Infarction ([place]) Additional Family Medical History / Comment(s): Mother of a MN at the age of 73 yrs. Medications and Allergies Home Medications Medication Instructions Recorded Confirmed Type Ipratropium-Albuterol Nebulize 3 ml INHALATION RT-Q4H 12/16/19 07/14/23 History [Duoneb 0.5 mg-3 mg/3 ml Soln] Aspirin 81 mg PEG/G-TUBE DAILY@0900 11/27/20 07/14/23 History Acetaminophen Tab [Tylenol] 650 mg PEG/G-TUBE Q4H PRN 06/13/21 07/14/23 History Metoprolol Tartrate [Lopressor] 50 mg PEG/G-TUBE BID@0900,2100 06/13/21 07/14/23 History carBAMazepine [carBAMazepine Oral 100 mg PEG/G-TUBE 07/02/21 07/14/23 History Susp] TID@0600,1400,2200 Amantadine Hcl Solution 50mg/5ml 100 mg PEG/G-TUBE DAILY@0900 12/22/21 07/14/23 History Lactulose 20 gm PEG/G-TUBE TID@0900,1700,2100 01/03/22 07/14/23 History Scopolamine [Scopolamine 1 MG/72 2 patch TRANSDERM Q72H 01/03/22 07/14/23 History HR patch] Baclofen [Lioresal] 5 mg PEG/G-TUBE TID@0600,1400,2200 05/03/22 07/14/23 Rx tab Lacosamide [Vimpat] 150 mg PEG/G-TUBE BID@0900,2100 #4 05/03/22 07/14/23 Rx tab oxyBUTYnin chloride 5 mg PEG/G-TUBE TID@0600,1400,2200 12/19/22 07/14/23 History Atorvastatin [Lipitor] 40 mg PEG/G-TUBE DAILY 07/14/23 07/14/23 History Famotidine [Pepcid] 20 mg PEG/G-TUBE DAILY 07/14/23 07/14/23 History Allergies Allergy/AdvReac Type Severity Reaction Status Date / Time meropenem [From Merrem] Allergy Rash/Hives Verified 07/14/23 12:25 ceftolozane [From Zerbaxa] AdvReac Rapid Verified 07/14/23 12:25 Heart Rate tazobactam [From Zerbaxa] AdvReac Rapid Verified 07/14/23 12:25 Heart Rate Physical Exam Vitals: Vital Signs Temp Pulse Pulse Resp BP BP Pulse Ox 07/15/23 13:36 97.8 F 100 20 122/70 97 07/15/23 13:03 104 H 07/15/23 12:53 100 07/15/23 07:59 102 H 24 168/88 97 07/15/23 06:35 101 H 07/15/23 06:25 118 H 07/15/23 04:00 107 H 20 159/90 98 07/15/23 00:00 100 20 147/102 99 07/14/23 21:00 107 H 20 122/96 100 07/14/23 19:43 99 07/14/23 19:34 96 07/14/23 19:28 93 20 150/97 100 07/14/23 18:19 98.4 F 07/14/23 18:17 88 24 147/98 97 07/14/23 15:00 90 23 137/93 97 07/14/23 14:00 95 18 136/92 97 Intake and Output 07/14/23 07/15/23 07/15/23 22:59 06:59 14:59 Output Total 1600 Balance -1600 Output: Urine 1600 Other: Voiding Method Indwelling Catheter Weight 104.326 kg GENERAL EXAM: Alert, currently nonverbal, 63-year-old male, on 3 L nasal cannula, comfortable in no apparent distress. HEAD: Normocephalic. EYES: Normal reaction of pupils, equal size. NOSE: Clear with pink turbinates. THROAT: No erythema or exudates. NECK: No masses, no JVD. CHEST: No chest wall deformity. LUNGS: Equal air entry with few scattered rhonchi, basilar crackles. CVS: S1 and S2 normal with no audible murmur, regular rhythm. ABDOMEN: PEG tube secured in place. No hepatosplenomegaly, normal bowel sounds, no guarding or rigidity. SPINE: No scoliosis or deformity SKIN: No rashes CENTRAL NERVOUS SYSTEM: Unable to assess, tone is normal in all 4 extremities. EXTREMITIES: There is no peripheral edema. No clubbing, no cyanosis. Peripheral pulses are intact. Results - Laboratory Findings CBC and BMP: 07/15/23 04:05 07/15/23 04:05 PT/INR, D-dimer PT 11.0 sec (10.0-12.5) 07/14/23 11:35 INR 1.0 (<1.2) 07/14/23 11:35 Abnormal lab findings: Abnormal Labs 07/14/23 07/14/23 07/14/23 11:28 11:35 11:35 WBC 17.3 H RBC 6.09 H Hgb MCH MCHC RDW 16.0 H Neutrophils # 15.3 H Lymphocytes # 0.6 L Monocytes # 1.1 H Eosinophils # Sodium Potassium 5.8 H Chloride 109 H Carbon Dioxide 19 L Anion Gap BUN 31 H BUN/Creatinine Ratio Glucose 148 H POC Glucose (mg/dL) Total Protein 8.3 H Urine Protein 1+ H Urine Blood Trace H Ur Leukocyte Esterase Large H Urine RBC 31 H Urine WBC 68 H Triple Phos Crystals Moderate H Urine Bacteria Moderate H Urine Mucus Rare H 07/14/23 07/15/23 07/15/23 11:39 04:05 04:05 WBC 10.63 H RBC Hgb 12.4 L MCH 24.5 L MCHC 29.2 L RDW 16.2 H Neutrophils # 8.13 H Lymphocytes # Monocytes # 1.03 H Eosinophils # 0.49 H Sodium 146 H Potassium Chloride Carbon Dioxide Anion Gap 15.80 H BUN BUN/Creatinine Ratio 24.44 H Glucose POC Glucose (mg/dL) 138 H Total Protein Urine Protein Urine Blood Ur Leukocyte Esterase Urine RBC Urine WBC Triple Phos Crystals Urine Bacteria Urine Mucus - Diagnostic Findings Chest x-ray: image reviewed Assessment and Plan Assessment: Febrile illness suspect secondary to urinary tract infection. Chest x-ray shows some fluid volume overload versus infiltrate. Currently on ceftriaxone Leukocytosis secondary to above History of multiple sclerosis History of dysphagia, nourished via PEG tube History of previous ventilatory dependent respiratory failure from pneumonia History of seizures History of dementia History of multiple urinary tract infections secondary to ESBL, MRSA Plan: The patient was seen and evaluated Chest x-ray, labs and medications reviewed Doubt pneumonia Continue ceftriaxone for UTI Aspiration precautions Titrate down the FiO2 as tolerated We'll continue to follow and make further recommendations based on his clinical status I have personally seen and examined the patient, performed the documentation and the assessment and plan as written. Number of minutes spent on the visit: 20.
[2023-07-15] MEDS: NYSTATIN 100,000 UNIT/ML SUSP 500,000 UNIT/5 ML CUP PO SCH ×2 (22:24→22:27)
--- NOTE | 2023-07-15 23:18 | P.PN ---
Subjective Progress Note Date: 07/15/23 Patient is a 63-year-old male with a past medical history of hypertension, multiple sclerosis, seizure disorder, dementia, chronic indwelling Stein catheter in 1 history of multiple urinary tract infection, dysphagia on PEG tube, neurogenic bladder. Patient is awake and alert x1 but nonverbal at baseline. Patient was sent to ER from intermediate due to patient being lethargic and was having fever. Patient was admitted to hospital in May 2023 with sepsis secondary to urinary tract infection, ileus and elevated troponin levels. Most recent urine cultures on 05/16/2023 are growing Providencia rettgeri stuartii susceptible to ceftriaxone. Chest x-ray showed perihilar and basilar infiltrates noted. Correlate for pneumonia. EKG showed sinus rhythm. Laboratory showed WBC 17.3 hemoglobin 15.4 and platelets 383 Sodium 141 potassium 5.8 with slight hemolysis. Chloride 101 bicarb is 19 BUN 31 and creatinine 0.82 and blood sugar is 148. Liver enzymes are not elevated. Urinalysis showed trace blood positive nitrite large leukocyte esterase with elevated RBCs and WBCs. Influenza A, B, RSV and COVID-19 PCR not detected. Tmax 101.7 on admission. Patient was tachycardic and tachypneic. 07/15/2023 Patient is currently lying in the bed. Awake alert but patient is nonverbal at baseline. Remains on antibiotics in the form of ceftriaxone for urinary tract infection. On oxygen at 3 L via nasal cannula. Repeat chest x-ray this morning showed mild cardiomegaly with mild bilateral central perihilar edema and less likely infiltrates. Demonstrated. No significant change from 1 day prior.. C HF will be favored. Patient was started on Lasix 40 mg twice daily. Pulmonary is on board. Urine culture is growing gram-negative bacilli. Patient was also noted to have oral thrush. Laboratory showed WBC 10.6 hemoglobin 12.4 and platelets 339 sodium 146 potassium 4.4 chloride 107 bicarb is 23.2 BUN 2020 creatinine 0.9 and blood sugar is 105 Current medications reviewed. Objective - Vital Signs Vital signs: Vital Signs Temp 97.8 F 07/15/23 13:36 Pulse 100 07/15/23 13:36 Resp 20 07/15/23 13:36 BP 122/70 07/15/23 13:36 Pulse Ox 97 07/15/23 13:36 FiO2 Intake & Output 07/14/23 07/15/23 07/15/23 18:59 06:59 18:59 Output Total 1600 Balance -1600 Weight 104.326 kg 104.326 kg Output: Urine 1600 Other: Voiding Method Indwelling Catheter - Exam PHYSICAL EXAMINATION: Patient is lying in the bed, no acute distress, awake alert but nonverbal at baseline. HEENT: Normocephalic. Neck is supple. Pupils reactive. Nostrils clear. Oral cavity is dry and thrush noted on the posterior tongue.. Neck reveals no JVD, carotid bruits, or thyromegaly. CHEST EXAMINATION: Trachea is central. Symmetrical expansion. Bibasilar dimini shed sounds. No wheezing or rhonchi. Nonlabored breathing.. CARDIAC: Normal S1, S2 with no gallops. No murmurs ABDOMEN: Soft. Bowel sounds present. No organomegaly. No abdominal bruits. Extremities: reveal no edema. Bilateral lower extremities are contracted. No clubbing or cyanosis Neurologically awake, alert x1. Nonverbal. Patient is bedbound. Skin: No rash or skin lesions. Psychiatric: Coperative. Could not be assisted completely. Musculoskeletal: No joint swelling or deformity. - Labs CBC & Chem 7: 07/15/23 04:05 07/15/23 04:05 Labs: Abnormal Lab Results - Last 24 Hours (Table) 07/15/23 07/15/23 Range/Units 04:05 04:05 WBC 10.63 H (4.50-10.00) X 10*3/uL Hgb 12.4 L (13.0-17.0) d/dL MCH 24.5 L (27.0-32.0) pg MCHC 29.2 L (32.0-37.0) d/dL RDW 16.2 H (11.5-14.5) % Neutrophils # 8.13 H (1.80-7.70) X 10*3/uL Monocytes # 1.03 H (0.20-1.00) X 10*3/uL Eosinophils # 0.49 H (0.04-0.35) X 10*3/uL Sodium 146 H (135-145) mmol/L Anion Gap 15.80 H (4.00-12.00) mmol/L BUN/Creatinine Ratio 24.44 H (12.00-20.00) Ratio Assessment and Plan Assessment: Acute urinary tract infection Possible Acute bilateral pneumonia vs fluid load Sepsis secondary to above Oral thrush Neurogenic bladder and history of multiple urinary tract infections Multiple sclerosis at age 39. Currently patient is bedbound Seizure disorder Cognitive impairment Hypertension GERD History of DVT Dysphagia/n.p.o. on PEG tube feeding History of trigeminal neuralgia History of ESBL E. coli urinary tract infections Depression DVT prophylaxis with heparin subcu Plan: Patient will be continued on antibiotics in the form of ceftriaxone and azithromycin. Most recent urine culture showed procidentia which is susceptible to ceftriaxone. Follow-up blood cultures and urine cultures. Patient was started on Lasix 40 mg twice daily. Monitor renal function. Pulmonary is on board. Continue with home medications. Currently tube feeding and monitor closely. Prognosis is guarded. Time with Patient: Greater than 30
[2023-07-16] MEDS: oxyBUTYnin chloride 5 MG TAB PEG/G-TUBE SCH ×3 (05:53→21:52)
[2023-07-16] MEDS: FAMOTIDINE 8 MG/ML ORAL.SUSP PEG/G-TUBE SCH (08:32)
[2023-07-16] MEDS: LACTULOSE 20 GM/30 ML CUP PEG/G-TUBE SCH ×3 (08:32→21:52)
[2023-07-16] MEDS: NYSTATIN 100,000 UNIT/ML SUSP 500,000 UNIT/5 ML CUP PO SCH ×5 (08:32→23:21)
[2023-07-16] MEDS: HEPARIN SODIUM,PORCINE 5,000 UNIT/ML 1 ML VIAL SQ SCH ×2 (08:33→16:13)
[2023-07-16] MEDS: METOPROLOL TARTRATE 50 MG TAB PEG/G-TUBE SCH ×2 (08:33→21:52)
[2023-07-16] MEDS: FUROSEMIDE 10 MG/ML 4 ML VIAL IV SCH ×2 (08:33→21:52)
[2023-07-16] MEDS: ASPIRIN 81 MG PEG/G-TUBE SCH (08:33)
[2023-07-16] MEDS: AZITHROMYCIN 500 MG TAB PO SCH (08:33)
[2023-07-16] MEDS: ATORVASTATIN 40 MG TAB PEG/G-TUBE SCH (08:33)
[2023-07-16] MEDS: LACOSAMIDE 150 MG TABLET PEG/G-TUBE SCH ×2 (08:38→22:05)
[2023-07-16 08:50] LABS: Basophils # (A) 0.04 X 10*3/uL (0.00-0.10); Basophils % (A) 0.5 %; Eosinophils # (A) 0.73 X 10*3/uL (0.04-0.35); Eosinophils % (A) 8.2 %; HCT 42.6 % (39.6-50.0); HGB 12.4 d/dL (13.0-17.0); Lymphocytes # (A) 1.24 X 10*3/uL (0.90-5.00); MCH 24.3 pg (27.0-32.0); MCHC 29.1 d/dL (32.0-37.0); MCV 83.4 FL (80.0-97.0); Mean Platelet Volume 11.2 FL (9.5-12.2); Monocytes # (A) 1.24 X 10*3/uL (0.20-1.00); NRBC Per 100 WBC 0 X 10*3/uL (0.00-0.01); Neutrophils # (A) 5.55 X 10*3/uL (1.80-7.70); Neutrophils % (A) 62.7 %; Platelet Count 291 X 10*3/uL (140-440); RBC 5.11 X 10*6/uL (4.40-5.60); WBC 8.85 X 10*3/uL (4.50-10.00)
[2023-07-16 09:18] LABS: BUN/Creat Ratio 18.36 Ratio (12.00-20.00); Blood Urea Nitrogen 20.2 mg/dL (9.0-27.0); Calcium 9.1 mg/dL (8.7-10.3); Carbon Dioxide 22.8 mmol/L (21.6-31.8); Chloride 110 mmol/L (96-109); Glucose 94 mg/dL (70-110); Potassium 3.9 mmol/L (3.5-5.5); Sodium 148 mmol/L (135-145)
--- NOTE | 2023-07-16 15:05 | P.PN ---
Subjective Progress Note Date: 07/16/23 This is a 63-year-old gentleman who resides in a half-way. He is usually alert and oriented times one. He has a history of seizures, multiple sclerosis, dementia, chronic indwelling Stein catheter, multiple urinary tract infections, dysphagia and nourished via PEG tube, neurogenic bladder. He was brought into the emergency room yesterday with concerns regarding fevers. He did present with a temperature of 101.7. Chest x-ray shows mild cardiomegaly with mild bilateral central perihilar edema and/or infiltrates. White count 10.6. Hemoglobin 12.4. Platelets 339. Sodium 146. Potassium 4.4. Bicarb 23. BUN 22. Creatinine 0.9. Glucose 105. ProBNP 980. Urine with high WBCs and moderate bacteria. Influenza screen negative. RSV screen negative. COVID-19 screen negative. He is seen today in consultation on the regular medical floor. He is currently laying flat in bed. Awake and alert in no acute distress. Maintaining O2 saturations in the 90s on 3 L/m per nasal cannula. He is currently afebrile. Hemodynamically stable. The patient is seen today 07/16/2023 in follow-up on the regular medical floor. He is currently resting in bed. Awake and alert in no acute distress. Remains nonverbal for the most part. He is maintaining O2 saturations in the mid 90s on 3 L/m per nasal cannula. Afebrile. Hemodynamically stable. Urine culture positive for gram-negative bacilli. Blood cultures pending. White count 8.8. Hemoglobin 12.4. Platelets 291. Sodium 148. Potassium 3.9. Bicarb 23. BUN 20. Creatinine 1.1. Pro-calcitonin 0.15. He remains on ceftriaxone. Continued on IV diuretics. Currently in a -3.5 L balance. Scopolamine patch in place. Objective - Vital Signs Vital signs: Vital Signs Temp 98.7 F 07/16/23 06:48 Pulse 99 07/16/23 08:00 Resp 18 07/16/23 08:00 BP 162/94 07/16/23 06:48 Pulse Ox 95 07/16/23 06:48 FiO2 Intake & Output 07/15/23 07/16/23 07/16/23 18:59 06:59 18:59 Intake Total 220 Output Total 3075 700 550 Balance -8195 -480 -550 Weight 104.326 kg 104.326 kg Intake: Intake, IV Titration 220 Amount Sodium Chloride 0.9% 1, 220 000 ml @ 20 mls/hr IV . Q24H [facility] Rx#:[id number] Oral 0 Output: Urine [id number] Other: Voiding Method Indwelling Catheter Indwelling Catheter Indwelling Catheter # Bowel Movements 1 - Exam GENERAL EXAM: Alert, nonverbal, 63-year-old male, comfortable in no apparent distress. HEAD: Normocephalic. EYES: Normal reaction of pupils, equal size. NOSE: Clear with pink turbinates. THROAT: No erythema or exudates. NECK: No masses, no JVD. CHEST: No chest wall deformity. LUNGS: Equal air entry with few scattered rhonchi, basilar crackles. On 3 L nasal cannula, CVS: S1 and S2 normal with no audible murmur, regular rhythm. ABDOMEN: PEG tube secured in place. No hepatosplenomegaly, normal bowel sounds, no guarding or rigidity. SPINE: No scoliosis or deformity SKIN: No rashes CENTRAL NERVOUS SYSTEM: Unable to assess, tone is normal in all 4 extremities. EXTREMITIES: There is no peripheral edema. No clubbing, no cyanosis. Peripheral pulses are intact. - Labs CBC & Chem 7: 07/16/23 06:19 07/16/23 06:19 Labs: Abnormal Lab Results - Last 24 Hours (Table) 07/15/23 07/16/23 07/16/23 Range/Units 04:05 06:19 06:19 Hgb 12.4 L (13.0-17.0) d/dL MCH 24.3 L (27.0-32.0) pg MCHC 29.1 L (32.0-37.0) d/dL RDW 16.0 H (11.5-14.5) % Monocytes # 1.24 H (0.20-1.00) X 10*3/uL Eosinophils # 0.73 H (0.04-0.35) X 10*3/uL Sodium 148 H (135-145) mmol/L Chloride 110 H (96-109) mmol/L Anion Gap 15.20 H (4.00-12.00) mmol/L Procalcitonin 0.15 H (0.02-0.09) ng/mL Microbiology - Last 24 Hours (Table) 07/14/23 11:35 Blood Culture - Preliminary Blood 07/14/23 11:35 Blood Culture - Preliminary Blood 07/14/23 11:28 Urine Culture - Preliminary Urine,Voided Gram Neg Bacilli Assessment and Plan Assessment: Febrile illness suspect secondary to urinary tract infection. Chest x-ray shows some fluid volume overload versus infiltrate. Remains on diuretics Urinary tract infection secondary to gram-negative bacilli. Currently on ceftriaxone Leukocytosis secondary to above History of multiple sclerosis History of dysphagia, nourished via PEG tube History of previous ventilatory dependent respiratory failure from pneumonia History of seizures History of dementia History of multiple urinary tract infections secondary to ESBL, MRSA Plan: The patient was seen and evaluated Labs and medications reviewed Continue ceftriaxone for UTI Aspiration precautions Scopolamine patch in place Heparin for DVT prophylaxis Continue diuretics Titrate down the FiO2 as tolerated We'll continue to follow I have personally seen and examined the patient, performed the documentation and the assessment and plan as written. Number of minutes spent on the visit: 10.
[2023-07-16] MEDS: IPRATROPIUM-ALBUTEROL 3 ML NEB INHALATION PRN (16:39)
[2023-07-16] MEDS ORDERED: DEXTROSE 5%-0.45% NACL 1,000 ML IV SCH (21:45)
--- NOTE | 2023-07-16 22:49 | P.PN ---
Subjective Progress Note Date: 07/16/23 Patient is a 63-year-old male with a past medical history of hypertension, multiple sclerosis, seizure disorder, dementia, chronic indwelling Stein catheter in 1 history of multiple urinary tract infection, dysphagia on PEG tube, neurogenic bladder. Patient is awake and alert x1 but nonverbal at baseline. Patient was sent to ER from alf due to patient being lethargic and was having fever. Patient was admitted to hospital in May 2023 with sepsis secondary to urinary tract infection, ileus and elevated troponin levels. Most recent urine cultures on 05/16/2023 are growing Providencia rettgeri stuartii susceptible to ceftriaxone. Chest x-ray showed perihilar and basilar infiltrates noted. Correlate for pneumonia. EKG showed sinus rhythm. Laboratory showed WBC 17.3 hemoglobin 15.4 and platelets 383 Sodium 141 potassium 5.8 with slight hemolysis. Chloride 101 bicarb is 19 BUN 31 and creatinine 0.82 and blood sugar is 148. Liver enzymes are not elevated. Urinalysis showed trace blood positive nitrite large leukocyte esterase with elevated RBCs and WBCs. Influenza A, B, RSV and COVID-19 PCR not detected. Tmax 101.7 on admission. Patient was tachycardic and tachypneic. 07/15/2023 Patient is currently lying in the bed. Awake alert but patient is nonverbal at baseline. Remains on antibiotics in the form of ceftriaxone for urinary tract infection. On oxygen at 3 L via nasal cannula. Repeat chest x-ray this morning showed mild cardiomegaly with mild bilateral central perihilar edema and less likely infiltrates. Demonstrated. No significant change from 1 day prior.. C HF will be favored. Patient was started on Lasix 40 mg twice daily. Pulmonary is on board. Urine culture is growing gram-negative bacilli. Patient was also noted to have oral thrush. Laboratory showed WBC 10.6 hemoglobin 12.4 and platelets 339 sodium 146 potassium 4.4 chloride 107 bicarb is 23.2 BUN 2020 creatinine 0.9 and blood sugar is 105 07/16/2023 Patient is lying in the bed comfortably. Nonverbal at baseline. Able to open his eyes. Unable to follow complete commands. Otherwise patient is afebrile. Tolerating tube feedings. Laboratory data showed WBC down to 8.85 hemoglobin 12.4 and platelets 291 Sodium 148 potassium 3.9 chloride 110 bicarb is 22.8 BUN 20.2 and creatinine 1.1 Patient is being cannula antibiotics at home ceftriaxone. Urine culture showed gram-negative bacilli and Morganella morganii. Blood cultures negative so far. Patient is being diuresed with Lasix 40 mg every 12. Pulmonary is on board. Current medications reviewed. Objective - Vital Signs Vital signs: Vital Signs Temp 98.7 F 07/16/23 19:02 Pulse 95 07/16/23 19:02 Resp 18 07/16/23 19:02 BP 163/88 07/16/23 19:02 Pulse Ox 100 07/16/23 19:02 FiO2 Intake & Output 07/16/23 07/16/23 07/17/23 06:59 18:59 06:59 Intake Total 220 Output Total 700 1100 Balance -480 -1100 Weight 104.326 kg Intake: Intake, IV Titration 220 Amount Sodium Chloride 0.9% 1, 220 000 ml @ 20 mls/hr IV . Q24H LUPE Rx#:[id number] Oral 0 Output: Urine 700 1100 Other: Voiding Method Indwelling Catheter Indwelling Catheter # Bowel Movements 1 - Exam PHYSICAL EXAMINATION: Patient is lying in the bed, no acute distress, awake alert but nonverbal at baseline. HEENT: Normocephalic. Neck is supple. Pupils reactive. Nostrils clear. Oral cavity is dry and thrush noted on the posterior tongue.. Neck reveals no JVD, carotid bruits, or thyromegaly. CHEST EXAMINATION: Trachea is central. Symmetrical expansion. Bibasilar diminished sounds. No wheezing or rhonchi. Nonlabored breathing.. CARDIAC: Normal S1, S2 with no gallops. No murmurs ABDOMEN: Soft. Bowel sounds present. No organomegaly. No abdominal bruits. Extremities: reveal no edema. Bilateral lower extremities are contracted. No clubbing or cyanosis Neurologically awake, alert x1. Nonverbal. Patient is bedbound. Skin: No rash or skin lesions. Psychiatric: Coperative. Could not be assisted completely. Musculoskeletal: No joint swelling or deformity. - Labs CBC & Chem 7: 07/16/23 06:19 07/16/23 06:19 Labs: Abnormal Lab Results - Last 24 Hours (Table) 07/15/23 07/16/23 07/16/23 Range/Units 04:05 06:19 06:19 Hgb 12.4 L (13.0-17.0) d/dL MCH 24.3 L (27.0-32.0) pg MCHC 29.1 L (32.0-37.0) d/dL RDW 16.0 H (11.5-14.5) % Monocytes # 1.24 H (0.20-1.00) X 10*3/uL Eosinophils # 0.73 H (0.04-0.35) X 10*3/uL Sodium 148 H (135-145) mmol/L Chloride 110 H (96-109) mmol/L Anion Gap 15.20 H (4.00-12.00) mmol/L Procalcitonin 0.15 H (0.02-0.09) ng/mL Microbiology - Last 24 Hours (Table) 07/14/23 11:28 Urine Culture - Preliminary Urine,Voided Gram Neg Bacilli Morganella morganii 07/14/23 11:35 Blood Culture - Preliminary Blood 07/14/23 11:35 Blood Culture - Preliminary Blood Assessment and Plan Assessment: Acute urinary tract infection. Urine culture showed gram-negative bacilli and Morganella morganii. Possible Acute bilateral pneumonia vs fluid load Sepsis secondary to above mild Hypernatremia Oral thrush Neurogenic bladder and history of multiple urinary tract infections Multiple sclerosis at age 39. Currently patient is bedbound Seizure disorder Cognitive impairment Hypertension GERD History of DVT Dysphagia/n.p.o. on PEG tube feeding History of trigeminal neuralgia History of ESBL E. coli urinary tract infections Depression DVT prophylaxis with heparin subcu Plan: Patient will be continued on antibiotics in the form of ceftriaxone and complet ed azithromycin x 3 dose. Most recent urine culture showed procidentia which is susceptible to ceftriaxone. Follow-up final blood cultures and urine cultures. Patient was started on Lasix 40 mg twice daily. Monitor renal function. Pulmonary is on board. Continue with home medications. Currently tube feeding and monitor closely. will add free water via PEG tube Prognosis is guarded. Time with Patient: Greater than 30
[2023-07-17] MEDS: oxyBUTYnin chloride 5 MG TAB PEG/G-TUBE SCH ×3 (06:05→22:26)
[2023-07-17] MEDS: HEPARIN SODIUM,PORCINE 5,000 UNIT/ML 1 ML VIAL SQ SCH ×3 (08:56→16:40)
[2023-07-17] MEDS: FUROSEMIDE 10 MG/ML 4 ML VIAL IV SCH ×2 (09:07→22:25)
[2023-07-17] MEDS: LACOSAMIDE 150 MG TABLET PEG/G-TUBE SCH ×2 (09:10→22:25)
[2023-07-17] MEDS: ASPIRIN 81 MG PEG/G-TUBE SCH (09:10)
[2023-07-17] MEDS: LACTULOSE 20 GM/30 ML CUP PEG/G-TUBE SCH ×3 (09:10→22:25)
[2023-07-17] MEDS: ATORVASTATIN 40 MG TAB PEG/G-TUBE SCH (09:11)
[2023-07-17] MEDS: METOPROLOL TARTRATE 50 MG TAB PEG/G-TUBE SCH ×2 (09:11→22:25)
[2023-07-17] MEDS: FAMOTIDINE 8 MG/ML ORAL.SUSP PEG/G-TUBE SCH (09:11)
[2023-07-17] MEDS: NYSTATIN 100,000 UNIT/ML SUSP 500,000 UNIT/5 ML CUP PO SCH ×4 (09:12→22:26)
[2023-07-17 11:02] LABS: Basophils # (A) 0.03 X 10*3/uL (0.00-0.10); Basophils % (A) 0.4 %; Eosinophils # (A) 0.48 X 10*3/uL (0.04-0.35); HCT 43.9 % (39.6-50.0); HGB 12.8 d/dL (13.0-17.0); Lymphocytes # (A) 1.14 X 10*3/uL (0.90-5.00); Lymphocytes % (A) 16.7 %; MCH 24.4 pg (27.0-32.0); MCHC 29.2 d/dL (32.0-37.0); MCV 83.8 FL (80.0-97.0); Mean Platelet Volume 11.2 FL (9.5-12.2); Monocytes # (A) 0.86 X 10*3/uL (0.20-1.00); Monocytes % (A) 12.6 %; NRBC Per 100 WBC 0 X 10*3/uL (0.00-0.01); Neutrophils # (A) 4.28 X 10*3/uL (1.80-7.70); Platelet Count 314 X 10*3/uL (140-440); RBC 5.24 X 10*6/uL (4.40-5.60); RDW 15.9 % (11.5-14.5); WBC 6.81 X 10*3/uL (4.50-10.00)
[2023-07-17 11:03] LABS: Blood Urea Nitrogen 22.5 mg/dL (9.0-27.0); Glucose 116 mg/dL (70-110)
[2023-07-17 11:04] LABS: Calcium 9.4 mg/dL (8.7-10.3); Carbon Dioxide 27.2 mmol/L (21.6-31.8); Chloride 107 mmol/L (96-109); Potassium 3.7 mmol/L (3.5-5.5); Sodium 150 mmol/L (135-145)
--- NOTE | 2023-07-17 13:41 | P.PN ---
Subjective Progress Note Date: 07/17/23 This is a 63-year-old gentleman who resides in a half-way. He is usually alert and oriented times one. He has a history of seizures, multiple sclerosis, dementia, chronic indwelling Stein catheter, multiple urinary tract infections, dysphagia and nourished via PEG tube, neurogenic bladder. He was brought into the emergency room yesterday with concerns regarding fevers. He did present with a temperature of 101.7. Chest x-ray shows mild cardiomegaly with mild bilateral central perihilar edema and/or infiltrates. White count 10.6. Hemoglobin 12.4. Platelets 339. Sodium 146. Potassium 4.4. Bicarb 23. BUN 22. Creatinine 0.9. Glucose 105. ProBNP 980. Urine with high WBCs and moderate bacteria. Influenza screen negative. RSV screen negative. COVID-19 screen negative. He is seen today in consultation on the regular medical floor. He is currently laying flat in bed. Awake and alert in no acute distress. Maintaining O2 saturations in the 90s on 3 L/m per nasal cannula. He is currently afebrile. Hemodynamically stable. The patient is seen today 07/16/2023 in follow-up on the regular medical floor. He is currently resting in bed. Awake and alert in no acute distress. Remains nonverbal for the most part. He is maintaining O2 saturations in the mid 90s on 3 L/m per nasal cannula. Afebrile. Hemodynamically stable. Urine culture positive for gram-negative bacilli. Blood cultures pending. White count 8.8. Hemoglobin 12.4. Platelets 291. Sodium 148. Potassium 3.9. Bicarb 23. BUN 20. Creatinine 1.1. Pro-calcitonin 0.15. He remains on ceftriaxone. Continued on IV diuretics. Currently in a -3.5 L balance. Scopolamine patch in place. The patient is seen today 07/17/2023 in follow-up on the regular medical floor. He is currently resting comfortably in bed. Awake. Tracking with his eyes. He is maintaining O2 saturations up to 100% on 4 L/m per nasal cannula. He is afebrile. His urine cultures positive for Morganella morganii. White count 6. 8. Hemoglobin 12.8. Platelets 314. Sodium 150. Potassium 3.7. Bicarb 27. BUN 23. Creatinine 0.9. Glucose 116. He is continued on bronchodilators. Remains on IV diuretics. D5 and half-normal saline 50 ML's per hour. Antibiotics in the form of ceftriaxone. Heparin for DVT prophylaxis. He continues to be nourished with Jevity 1.5 at 20 ML's per hour per his PEG tube. Objective - Vital Signs Vital signs: Vital Signs Temp 98.0 F 07/17/23 07:06 Pulse 99 07/17/23 07:06 Resp 18 07/17/23 07:06 BP 165/84 07/17/23 07:06 Pulse Ox 100 07/17/23 07:06 FiO2 Intake & Output 07/16/23 07/17/23 07/17/23 18:59 06:59 18:59 Output Total 1100 625 Balance -1100 -625 Weight 104.326 kg Output: Urine 1100 625 Other: Voiding Method Indwelling Catheter Indwelling Catheter Indwelling Catheter - Exam GENERAL EXAM: Alert, nonverbal, 63-year-old male, resting in bed, on 4 L nasal cannula, comfortable in no apparent distress. HEAD: Normocephalic. EYES: Normal reaction of pupils, equal size. NOSE: Clear with pink turbinates. THROAT: No erythema or exudates. NECK: No masses, no JVD. CHEST: No chest wall deformity. LUNGS: Equal air entry with few scattered rhonchi, basilar crackles. CVS: S1 and S2 normal with no audible murmur, regular rhythm. ABDOMEN: PEG tube secured in place. No hepatosplenomegaly, normal bowel sounds, no guarding or rigidity. SPINE: No scoliosis or deformity SKIN: No rashes CENTRAL NERVOUS SYSTEM: Unable to assess, tone is normal in all 4 extremities. EXTREMITIES: There is no peripheral edema. No clubbing, no cyanosis. Peripheral pulses are intact. - Labs CBC & Chem 7: 07/17/23 05:33 07/17/23 05:33 Labs: Abnormal Lab Results - Last 24 Hours (Table) 07/17/23 07/17/23 Range/Units 05:33 05:33 Hgb 12.8 L (13.0-17.0) d/dL MCH 24.4 L (27.0-32.0) pg MCHC 29.2 L (32.0-37.0) d/dL RDW 15.9 H (11.5-14.5) % Eosinophils # 0.48 H (0.04-0.35) X 10*3/uL Sodium 150 H (135-145) mmol/L Anion Gap 15.80 H (4.00-12.00) mmol/L BUN/Creatinine Ratio 25.00 H (12.00-20.00) Ratio Glucose 116 H (70-110) mg/dL Microbiology - Last 24 Hours (Table) 07/14/23 11:35 Blood Culture - Preliminary Blood 07/14/23 11:35 Blood Culture - Preliminary Blood 07/14/23 11:28 Urine Culture - Preliminary Urine,Voided Gram Neg Bacilli Morganella morganii Assessment and Plan Assessment: Febrile illness suspect secondary to urinary tract infection. Chest x-ray shows some fluid volume overload versus infiltrate. Remains on diuretics Urinary tract infection secondary to Morganella morganii. Currently on ceftriaxone Leukocytosis secondary to above History of multiple sclerosis History of dysphagia, nourished via PEG tube with Jevity 1.2 History of previous ventilatory dependent respiratory failure from pneumonia History of seizures History of dementia History of multiple urinary tract infections secondary to ESBL, MRSA Plan: The patient was seen and evaluated Labs and medications reviewed Continue ceftriaxone Continue diuretics Titrate down the FiO2 as tolerated Follow-up chest x-ray in a.m. We'll continue to follow I have personally seen and examined the patient, performed the documentation and the assessment and plan as written. Number of minutes spent on the visit: 10.
[2023-07-17] MEDS ORDERED: DEXTROSE 5% IN WATER 1,000 ML IV ONE (14:19)
[2023-07-17] MEDS ORDERED: POTASSIUM CHLORIDE ER 20 MEQ TAB.ER PO STA (14:22)
--- NOTE | 2023-07-17 15:26 | CDI ---
Documentation Clarification Form Date: 07/17/2023 03:06:44 PM From: Ayanna Pedraza RN, CCDS Admit Date: 07/14/2023 02:07:00 PM Patient Name: Chris Marvin Visit Number: [id number] Discharge Date: ATTENTION: The Clinical Documentation Specialists (CDI) and [facility] Coding Staff appreciate your assistance in clarifying documentation. Please respond to the clarification below the line at the bottom and electronically sign. The CDI & [facility] Coding staff will review the response and follow-up if needed. Please note: Queries are made part of the Legal Health Record. If you have any questions, please contact the author of this message via ITS. Dr. Gio Paige UTI is documented in the H/P and subsequent progress notes and patient has chronic Stein catheter. Additional clarification regarding the etiology of the UTI is requested. History/Risk Factors: (DVT), GERD/Reflux, Hypertension, MS at the age of 39 yrs, UTI, neurogenic bladder with IDC Clinical Indicators: . Patient is reported normally alert and oriented 1. He was lethargic. He has a chronic Stein catheter related to neurogenic bladder. 07/14 149/98 89 24 101.7 97% 2/L NC 07/14 Urinalysis: Urine Nitrite-Positive, Ur Leukocyte Esterase-Large, Urine WBC 68, Urine Bacteria-Moderate. 07/14 Urine culture: Gram Negative Bacilli, Morganella morganii 07/14Lab results: WBC 17.3, Lactic acid 1.9 Treatment: Monitor I/O Rocephin 2 GM IVPB Q 24 HRS Please clarify the etiology of the UTI, if known: [x ] Stein catheter [ ] UTI not related to catheter [ ] Other condition, please specify [ ] Unable to determine (Template Last Revised: November 2020) MTDD
--- NOTE | 2023-07-17 16:14 | CDI ---
Documentation Clarification Form Date: 07/17/2023 03:45:20 PM From: Ayanna Pedraza RN, CCDS Admit Date: 07/14/2023 02:07:00 PM Patient Name: Chris Marvin Visit Number: [id number] Discharge Date: ATTENTION: The Clinical Documentation Specialists (CDI) and [facility] Coding Staff appreciate your assistance in clarifying documentation. Please respond to the clarification below the line at the bottom and electronically sign. The CDI & [facility] Coding staff will review the response and follow-up if needed. Please note: Queries are made part of the Legal Health Record. If you have any questions, please contact the author of this message via ITS. Dr.Moiz Paige Your patient has fluid load documented in the H/P and subsequent progress and was started on Lasix 40 mg IV Daily. Based on this information and the findings below, is there an additional diagnosis that is clinically appropriate for this patient? Patient history/risk factors: (DVT), GERD/Reflux, Hypertension, MS at the age of 39 yrs, UTI, neurogenic bladder with IDC Clinical Indicators: 63 year-old male present from [facility], with shortness of breath, fever. 07/14 149/98 89 24 101.7 97% 2/L NC 07/14Lab results: WBC 17.3, Lactic acid 1.9 07/15 BNP 980 07/14 CXR: Perihilar and basilar infiltrates noted. Correlate for pneumonia. 07/15 CXR: Mild cardiomegaly with mild bilateral central perihilar edema and/or less likely infiltrates redemonstrated. No significant changes from one day earlier. CHF exacerbation would be favored. ECHO (last reported 05/04/2021) Left ventricular systolic function is normal with, an EF between 55-60% trace to mild mitral regurgitation, trace tricuspid regurgitation Treatment: Monitor I/O, Daily weight Rocephin 2 GM IVPB Q 24 HRS Lipitor 40MG Daily (PEG) Lasix 40 MG IV Q 12 Lopressor 50 MG (PEG) BID Is there an additional diagnosis that is clinically appropriate for this patient? [ ] Acute CHF preserved ejection fraction [ x] Unable to determine [ ] Other, please specify (Template Last Reviewed: November 2022) MTDD
--- NOTE | 2023-07-17 17:45 | XR ---
EXAMINATION TYPE: XR chest 1V DATE OF EXAM: 07/17/2023 COMPARISON: 07/15/2023 INDICATION: CHF TECHNIQUE: Single frontal view of the chest is obtained. FINDINGS: The heart size is normal. The pulmonary vasculature is prominent. Mild increased diffuse lung markings are present. IMPRESSION: 1. Correlate for mild pulmonary edema and volume overload.
[2023-07-18] MEDS: HEPARIN SODIUM,PORCINE 5,000 UNIT/ML 1 ML VIAL SQ SCH ×3 (01:09→16:57)
[2023-07-18] MEDS: oxyBUTYnin chloride 5 MG TAB PEG/G-TUBE SCH ×3 (05:18→21:50)
--- NOTE | 2023-07-18 07:48 | XR ---
EXAMINATION TYPE: XR chest 1V portable DATE OF EXAM: 07/18/2023 HISTORY: Shortness of breath. COMPARISON: 07/17/2023 TECHNIQUE: Single view of the chest is submitted. FINDINGS: Demonstrated are scattered senescent parenchymal change. Continued pulmonary venous congestion in the right basilar linear atelectasis. The heart is stable. Hilar and mediastinal structures are within normal limits. Degenerative changes are seen of the dorsal spine. IMPRESSION: 1. Continued pulmonary venous congestion in the right basilar linear atelectasis.
[2023-07-18] MEDS: SCOPOLAMINE 1 MG/72 HR PATCH TRANSDERM SCH (10:01)
[2023-07-18] MEDS: NYSTATIN 100,000 UNIT/ML SUSP 500,000 UNIT/5 ML CUP PO SCH ×4 (10:39→21:52)
[2023-07-18] MEDS: ATORVASTATIN 40 MG TAB PEG/G-TUBE SCH (10:39)
[2023-07-18] MEDS: LACOSAMIDE 150 MG TABLET PEG/G-TUBE SCH ×2 (10:39→21:50)
[2023-07-18] MEDS: ASPIRIN 81 MG PEG/G-TUBE SCH (10:39)
[2023-07-18] MEDS: METOPROLOL TARTRATE 50 MG TAB PEG/G-TUBE SCH ×2 (10:39→21:50)
[2023-07-18] MEDS: FAMOTIDINE 8 MG/ML ORAL.SUSP PEG/G-TUBE SCH (10:40)
[2023-07-18] MEDS: FUROSEMIDE 10 MG/ML 4 ML VIAL IV SCH (10:41)
[2023-07-18] MEDS: LACTULOSE 20 GM/30 ML CUP PEG/G-TUBE SCH ×3 (10:41→21:50)
[2023-07-18 13:54] LABS: BUN/Creat Ratio 27.25 Ratio (12.00-20.00); Blood Urea Nitrogen 21.8 mg/dL (9.0-27.0); Calcium 9.5 mg/dL (8.7-10.3); Carbon Dioxide 28.4 mmol/L (21.6-31.8); Chloride 110 mmol/L (96-109); Glucose 142 mg/dL (70-110); Potassium 3.7 mmol/L (3.5-5.5); Sodium 151 mmol/L (135-145)
--- NOTE | 2023-07-18 15:53 | P.PN ---
Subjective Progress Note Date: 07/18/23 This is a 63-year-old gentleman who resides in a care home. He is usually alert and oriented times one. He has a history of seizures, multiple sclerosis, dementia, chronic indwelling Stein catheter, multiple urinary tract infections, dysphagia and nourished via PEG tube, neurogenic bladder. He was brought into the emergency room yesterday with concerns regarding fevers. He did present with a temperature of 101.7. Chest x-ray shows mild cardiomegaly with mild bilateral central perihilar edema and/or infiltrates. White count 10.6. Hemoglobin 12.4. Platelets 339. Sodium 146. Potassium 4.4. Bicarb 23. BUN 22. Creatinine 0.9. Glucose 105. ProBNP 980. Urine with high WBCs and moderate bacteria. Influenza screen negative. RSV screen negative. COVID-19 screen negative. He is seen today in consultation on the regular medical floor. He is currently laying flat in bed. Awake and alert in no acute distress. Maintaining O2 saturations in the 90s on 3 L/m per nasal cannula. He is currently afebrile. Hemodynamically stable. The patient is seen today 07/16/2023 in follow-up on the regular medical floor. He is currently resting in bed. Awake and alert in no acute distress. Remains nonverbal for the most part. He is maintaining O2 saturations in the mid 90s on 3 L/m per nasal cannula. Afebrile. Hemodynamically stable. Urine culture positive for gram-negative bacilli. Blood cultures pending. White count 8.8. Hemoglobin 12.4. Platelets 291. Sodium 148. Potassium 3.9. Bicarb 23. BUN 20. Creatinine 1.1. Pro-calcitonin 0.15. He remains on ceftriaxone. Continued on IV diuretics. Currently in a -3.5 L balance. Scopolamine patch in place. The patient is seen today 07/17/2023 in follow-up on the regular medical floor. He is currently resting comfortably in bed. Awake. Tracking with his eyes. He is maintaining O2 saturations up to 100% on 4 L/m per nasal cannula. He is afebrile. His urine cultures positive for Morganella morganii. White count 6. 8. Hemoglobin 12.8. Platelets 314. Sodium 150. Potassium 3.7. Bicarb 27. BUN 23. Creatinine 0.9. Glucose 116. He is continued on bronchodilators. Remains on IV diuretics. D5 and half-normal saline 50 ML's per hour. Antibiotics in the form of ceftriaxone. Heparin for DVT prophylaxis. He continues to be nourished with Jevity 1.5 at 20 ML's per hour per his PEG tube. The patient is seen today 07/18/2023 in follow-up on the regular medical floor. He is awake. Resting comfortably in bed. No acute distress. Maintaining O2 saturations in the 90s on 3 L/m per nasal cannula. Being nourished with Jevity at 57 ML's per hour. Urine culture was positive for E. coli and Morganella mor ganii. Blood cultures reveal no growth. Sodium 151. Potassium 3.7. Bicarb 28. BUN 22. Creatinine 0.8. Glucose 142. He is continued on DuoNeb inhalations. Remains on IV diuretics. Scopolamine patch in place. Chest x-ray shows pulmonary venous congestion with right basilar atelectasis. Objective - Vital Signs Vital signs: Vital Signs Temp 98.0 F 07/18/23 13:54 Pulse 98 07/18/23 13:54 Resp 19 07/18/23 13:54 BP 121/78 07/18/23 13:54 Pulse Ox 97 07/18/23 13:54 FiO2 Intake & Output 07/17/23 07/18/23 07/18/23 18:59 06:59 18:59 Weight 113.5 kg Other: Voiding Method Indwelling Catheter Indwelling Catheter Indwelling Catheter - Exam GENERAL EXAM: Alert, nonverbal, 63-year-old male, on 4 L nasal cannula, comfortable in no apparent distress. HEAD: Normocephalic. EYES: Normal reaction of pupils, equal size. NOSE: Clear with pink turbinates. THROAT: No erythema or exudates. NECK: No masses, no JVD. CHEST: No chest wall deformity. LUNGS: Equal air entry with few scattered rhonchi, basilar crackles. CVS: S1 and S2 normal with no audible murmur, regular rhythm. ABDOMEN: PEG tube secured in place. No hepatosplenomegaly, normal bowel sounds, no guarding or rigidity. SPINE: No scoliosis or deformity SKIN: No rashes CENTRAL NERVOUS SYSTEM: Unable to assess, tone is normal in all 4 extremities. EXTREMITIES: There is no peripheral edema. No clubbing, no cyanosis. Peripheral pulses are intact. - Labs CBC & Chem 7: 07/17/23 05:33 07/18/23 06:29 Labs: Abnormal Lab Results - Last 24 Hours (Table) 07/18/23 Range/Units 06:29 Sodium 151 H (135-145) mmol/L Chloride 110 H (96-109) mmol/L Anion Gap 12.60 H (4.00-12.00) mmol/L BUN/Creatinine Ratio 27.25 H (12.00-20.00) Ratio Glucose 142 H (70-110) mg/dL Microbiology - Last 24 Hours (Table) 07/14/23 11:35 Blood Culture - Preliminary Blood 07/14/23 11:35 Blood Culture - Preliminary Blood 07/14/23 11:28 Urine Culture - Final Urine,Voided Escherichia coli Morganella morganii Assessment and Plan Assessment: Febrile illness secondary to urinary tract infection. Chest x-ray shows some fluid volume overload versus infiltrate. Remains on diuretics Urinary tract infection secondary to Morganella morganii. Currently on ceftriaxone Leukocytosis secondary to above Hypernatremia History of multiple sclerosis History of dysphagia, nourished via PEG tube with Jevity 1.2 History of previous ventilatory dependent respiratory failure from pneumonia History of seizures History of dementia History of multiple urinary tract infections secondary to ESBL, MRSA Plan: The patient was seen and evaluated Chest x-ray, labs and medications reviewed Initiate on D5W at 75 ML's per hour Continue ceftriaxone Continue diuretics Titrate down the FiO2 as tolerated We'll continue to follow I have personally seen and examined the patient, performed the documentation and the assessment and plan as written. Number of minutes spent on the visit: 10.
[2023-07-18] MEDS: DEXTROSE 5% IN WATER 1,000 ML IV SCH (16:15)
[2023-07-18 17:18] LABS: Basophils # (A) 0.03 X 10*3/uL (0.00-0.10); Basophils % (A) 0.4 %; Eosinophils % (A) 4.9 %; HCT 47.2 % (39.6-50.0); HGB 13.6 d/dL (13.0-17.0); Lymphocytes # (A) 0.97 X 10*3/uL (0.90-5.00); MCH 24.2 pg (27.0-32.0); MCHC 28.8 d/dL (32.0-37.0); Mean Platelet Volume 11.3 FL (9.5-12.2); Monocytes # (A) 0.72 X 10*3/uL (0.20-1.00); Monocytes % (A) 8.9 %; NRBC Per 100 WBC 0 X 10*3/uL (0.00-0.01); Neutrophils # (A) 5.95 X 10*3/uL (1.80-7.70); Neutrophils % (A) 73.6 %; Platelet Count 334 X 10*3/uL (140-440); RBC 5.62 X 10*6/uL (4.40-5.60); RDW 15.9 % (11.5-14.5); WBC 8.09 X 10*3/uL (4.50-10.00)
[2023-07-18] MEDS ORDERED: POTASSIUM CHLORIDE ER 20 MEQ TAB.ER PO STA (20:02)
--- NOTE | 2023-07-18 20:07 | P.PN ---
Subjective Progress Note Date: 07/17/23 Patient is a 63-year-old male with a past medical history of hypertension, multiple sclerosis, seizure disorder, dementia, chronic indwelling Stein catheter in 1 history of multiple urinary tract infection, dysphagia on PEG tube, neurogenic bladder. Patient is awake and alert x1 but nonverbal at baseline. Patient was sent to ER from long-term due to patient being lethargic and was having fever. Patient was admitted to hospital in May 2023 with sepsis secondary to urinary tract infection, ileus and elevated troponin levels. Most recent urine cultures on 05/16/2023 are growing Providencia rettgeri stuartii susceptible to ceftriaxone. Chest x-ray showed perihilar and basilar infiltrates noted. Correlate for pneumonia. EKG showed sinus rhythm. Laboratory showed WBC 17.3 hemoglobin 15.4 and platelets 383 Sodium 141 potassium 5.8 with slight hemolysis. Chloride 101 bicarb is 19 BUN 31 and creatinine 0.82 and blood sugar is 148. Liver enzymes are not elevated. Urinalysis showed trace blood positive nitrite large leukocyte esterase with elevated RBCs and WBCs. Influenza A, B, RSV and COVID-19 PCR not detected. Tmax 101.7 on admission. Patient was tachycardic and tachypneic. 07/15/2023 Patient is currently lying in the bed. Awake alert but patient is nonverbal at baseline. Remains on antibiotics in the form of ceftriaxone for urinary tract infection. On oxygen at 3 L via nasal cannula. Repeat chest x-ray this morning showed mild cardiomegaly with mild bilateral central perihilar edema and less likely infiltrates. Demonstrated. No significant change from 1 day prior.. C HF will be favored. Patient was started on Lasix 40 mg twice daily. Pulmonary is on board. Urine culture is growing gram-negative bacilli. Patient was also noted to have oral thrush. Laboratory showed WBC 10.6 hemoglobin 12.4 and platelets 339 sodium 146 potassium 4.4 chloride 107 bicarb is 23.2 BUN 2020 creatinine 0.9 and blood sugar is 105 07/16/2023 Patient is lying in the bed comfortably. Nonverbal at baseline. Able to open his eyes. Unable to follow complete commands. Otherwise patient is afebrile. Tolerating tube feedings. Laboratory data showed WBC down to 8.85 hemoglobin 12.4 and platelets 291 Sodium 148 potassium 3.9 chloride 110 bicarb is 22.8 BUN 20.2 and creatinine 1.1 Patient is being cannula antibiotics at home ceftriaxone. Urine culture showed gram-negative bacilli and Morganella morganii. Blood cultures negative so far. Patient is being diuresed with Lasix 40 mg every 12. Pulmonary is on board. 07/17/2023 Patient is more awake. Able to track with eyes. Patient is nonverbal at baseline. Family is at bedside. Patient has been afebrile. No nausea or vomiting. Tolerating tube feeding. Patient is also being continued Lasix 40 mg twice daily. Laboratory data showed sodium 150 potassium 3.7 chloride 107 bicarb is 27.2 BUN 22.5 and creatinine 0.9. Urine culture showed E. coli and Morganella morganii. Patient is being continued on ceftriaxone. WBC came down to 6.8 hemoglobin 12.8 and platelets 314. Pulmonary is on board. Repeat chest x-ray today showed correlate for mild pulmonary edema and volume overload. Current medications reviewed. Objective - Vital Signs Vital signs: Vital Signs Temp 98.0 F 07/17/23 07:06 Pulse 99 07/17/23 07:06 Resp 18 07/17/23 07:06 BP 165/84 07/17/23 07:06 Pulse Ox 100 07/17/23 07:06 FiO2 Intake & Output 07/16/23 07/17/23 07/17/23 18:59 06:59 18:59 Output Total 1100 625 Balance -1100 -625 Weight 104.326 kg Output: Urine 1100 625 Other: Voiding Method Indwelling Catheter Indwelling Catheter Indwelling Catheter - Exam PHYSICAL EXAMINATION: Patient is lying in the bed, no acute distress, awake alert but nonverbal at baseline. HEENT: Normocephalic. Neck is supple. Pupils reactive. Nostrils clear. Oral cavity is dry and thrush noted on the posterior tongue.. Neck reveals no JVD, carotid bruits, or thyromegaly. CHEST EXAMINATION: Trachea is central. Symmetrical expansion. Bibasilar diminished sounds. No wheezing or rhonchi. Nonlabored breathing.. CARDIAC: Normal S1, S2 with no gallops. No murmurs ABDOMEN: Soft. Bowel sounds present. No organomegaly. No abdominal bruits. Extremities: reveal no edema. Bilateral lower extremities are contracted. No clubbing or cyanosis Neurologically awake, alert x1. Nonverbal. Patient is bedbound. Skin: No rash or skin lesions. Psychiatric: Coperative. Could not be assisted completely. Musculoskeletal: No joint swelling or deformity. - Labs CBC & Chem 7: 07/18/23 06:29 07/18/23 06:29 Labs: Abnormal Lab Results - Last 24 Hours (Table) 07/17/23 07/17/23 Range/Units 05:33 05:33 Hgb 12.8 L (13.0-17.0) d/dL MCH 24.4 L (27.0-32.0) pg MCHC 29.2 L (32.0-37.0) d/dL RDW 15.9 H (11.5-14.5) % Eosinophils # 0.48 H (0.04-0.35) X 10*3/uL Sodium 150 H (135-145) mmol/L Anion Gap 15.80 H (4.00-12.00) mmol/L BUN/Creatinine Ratio 25.00 H (12.00-20.00) Ratio Glucose 116 H (70-110) mg/dL Microbiology - Last 24 Hours (Table) 07/14/23 11:35 Blood Culture - Preliminary Blood 07/14/23 11:35 Blood Culture - Preliminary Blood 07/14/23 11:28 Urine Culture - Preliminary Urine,Voided Gram Neg Bacilli Morganella morganii Assessment and Plan Assessment: Acute urinary tract infection. Urine culture showed E coli and Morganella morganii. Possible Acute bilateral pneumonia vs fluid load Sepsis secondary to above mild Hypernatremia Oral thrush Neurogenic bladder and history of multiple urinary tract infections Multiple sclerosis at age 39. Currently patient is bedbound Seizure disorder Cognitive impairment Hypertension GERD History of DVT Dysphagia/n.p.o. on PEG tube feeding History of trigeminal neuralgia History of ESBL E. coli urinary tract infections Depression DVT prophylaxis with heparin subcu Plan: Patient will be continued on antibiotics in the form of ceftriaxone and completed azithromycin x 3 dose. Most recent urine culture showed procidentia which is susceptible to ceftriaxone. Urine culture showed E. coli and Morganella morganii. Patient was started on Lasix 40 mg twice daily. Monitor renal function. Pulmonary is on board. Ordered D5 water at 75 cc/h. Follow-up BMP tomorrow. Continue with home medications. Currently tube feeding and monitor closely. will add free water via PEG tube Prognosis is guarded. Time with Patient: Greater than 30
--- NOTE | 2023-07-18 20:07 | P.PN ---
Subjective Progress Note Date: 07/18/23 Patient is a 63-year-old male with a past medical history of hypertension, multiple sclerosis, seizure disorder, dementia, chronic indwelling Stein catheter in 1 history of multiple urinary tract infection, dysphagia on PEG tube, neurogenic bladder. Patient is awake and alert x1 but nonverbal at baseline. Patient was sent to ER from [facility] due to patient being lethargic and was having fever. Patient was admitted to hospital in May 2023 with sepsis secondary to urinary tract infection, ileus and elevated troponin levels. Most recent urine cultures on 05/16/2023 are growing Providencia rettgeri stuartii susceptible to ceftriaxone. Chest x-ray showed perihilar and basilar infiltrates noted. Correlate for pneumonia. EKG showed sinus rhythm. Laboratory showed WBC 17.3 hemoglobin 15.4 and platelets 383 Sodium 141 potassium 5.8 with slight hemolysis. Chloride 101 bicarb is 19 BUN 31 and creatinine 0.82 and blood sugar is 148. Liver enzymes are not elevated. Urinalysis showed trace blood positive nitrite large leukocyte esterase with elevated RBCs and WBCs. Influenza A, B, RSV and COVID-19 PCR not detected. Tmax 101.7 on admission. Patient was tachycardic and tachypneic. 07/15/2023 Patient is currently lying in the bed. Awake alert but patient is nonverbal at baseline. Remains on antibiotics in the form of ceftriaxone for urinary tract infection. On oxygen at 3 L via nasal cannula. Repeat chest x-ray this morning showed mild cardiomegaly with mild bilateral central perihilar edema and less likely infiltrates. Demonstrated. No significant change from 1 day prior.. C HF will be favored. Patient was started on Lasix 40 mg twice daily. Pulmonary is on board. Urine culture is growing gram-negative bacilli. Patient was also noted to have oral thrush. Laboratory showed WBC 10.6 hemoglobin 12.4 and platelets 339 sodium 146 potassium 4.4 chloride 107 bicarb is 23.2 BUN 2020 creatinine 0.9 and blood sugar is 105 07/16/2023 Patient is lying in the bed comfortably. Nonverbal at baseline. Able to open his eyes. Unable to follow complete commands. Otherwise patient is afebrile. Tolerating tube feedings. Laboratory data showed WBC down to 8.85 hemoglobin 12.4 and platelets 291 Sodium 148 potassium 3.9 chloride 110 bicarb is 22.8 BUN 20.2 and creatinine 1.1 Patient is being cannula antibiotics at home ceftriaxone. Urine culture showed gram-negative bacilli and Morganella morganii. Blood cultures negative so far. Patient is being diuresed with Lasix 40 mg every 12. Pulmonary is on board. 07/17/2023 Patient is more awake. Able to track with eyes. Patient is nonverbal at baseline. Family is at bedside. Patient has been afebrile. No nausea or vomiting. Tolerating tube feeding. Patient is also being continued Lasix 40 mg twice daily. Laboratory data showed sodium 150 potassium 3.7 chloride 107 bicarb is 27.2 BUN 22.5 and creatinine 0.9. Urine culture showed E. coli and Morganella morganii. Patient is being continued on ceftriaxone. WBC came down to 6.8 hemoglobin 12.8 and platelets 314. Pulmonary is on board. Repeat chest x-ray today showed correlate for mild pulmonary edema and volume overload. 07/18/2023 Patient is currently resting in bed. Awake alert but could not communicate. Nonverbal. Patient has been afebrile. No nausea or vomiting. Tolerating tube feeding. Patient is being continued on ceftriaxone. Sodium level increased to 151 today. Chest x-ray showing vascular congestion. Patient remains on IV Lasix 40 mg twice daily. Pulmonary is following. Free water via PEG tube 200 cc every 6 hourly was ordered. Other laboratory showed WBC 8.0 hemoglobin 13.6 and platelets 334 Sodium 151 potassium 3.7 chloride 110 bicarb is 28.4 BUN 21.8 and creatinine 0.8 and blood sugar is 142. Current medications reviewed. Objective - Vital Signs Vital signs: Vital Signs Temp 99.3 F 07/18/23 19:43 Pulse 109 H 07/18/23 19:43 Resp 18 07/18/23 19:43 BP 163/99 07/18/23 19:43 Pulse Ox 92 L 07/18/23 19:43 FiO2 Intake & Output 07/18/23 07/18/23 07/19/23 06:59 18:59 06:59 Output Total 1700 Balance -1700 Weight 113.5 kg Output: Urine 1700 Other: Voiding Method Indwelling Catheter Indwelling Catheter - Exam PHYSICAL EXAMINATION: Patient is lying in the bed, no acute distress, awake alert but nonverbal at baseline. HEENT: Normocephalic. Neck is supple. Pupils reactive. Nostrils clear. Oral cavity is dry and thrush noted on the posterior tongue.. Neck reveals no JVD, carotid bruits, or thyromegaly. CHEST EXAMINATION: Trachea is central. Symmetrical expansion. Bibasilar diminished sounds. No wheezing or rhonchi. Nonlabored breathing.. CARDIAC: Normal S1, S2 with no gallops. No murmurs ABDOMEN: Soft. Bowel sounds present. No organomegaly. No abdominal bruits. Extremities: reveal no edema. Bilateral lower extremities are contracted. No clubbing or cyanosis Neurologically awake, alert x1. Nonverbal. Patient is bedbound. Skin: No rash or skin lesions. Psychiatric: Coperative. Could not be assisted completely. Musculoskeletal: No joint swelling or deformity. - Labs CBC & Chem 7: 07/18/23 06:29 07/18/23 06:29 Labs: Abnormal Lab Results - Last 24 Hours (Table) 07/18/23 07/18/23 Range/Units 06:29 06:29 RBC 5.62 H (4.40-5.60) X 10*6/uL MCH 24.2 L (27.0-32.0) pg MCHC 28.8 L (32.0-37.0) d/dL RDW 15.9 H (11.5-14.5) % Eosinophils # 0.40 H (0.04-0.35) X 10*3/uL Sodium 151 H (135-145) mmol/L Chloride 110 H (96-109) mmol/L Anion Gap 12.60 H (4.00-12.00) mmol/L BUN/Creatinine Ratio 27.25 H (12.00-20.00) Ratio Glucose 142 H (70-110) mg/dL Microbiology - Last 24 Hours (Table) 07/14/23 11:35 Blood Culture - Preliminary Blood 07/14/23 11:35 Blood Culture - Preliminary Blood 07/14/23 11:28 Urine Culture - Final Urine,Voided Escherichia coli Morganella morganii Assessment and Plan Assessment: Acute urinary tract infection. Urine culture showed E coli and Morganella morganii. Possible Acute bilateral pneumonia vs fluid load. Low suspicious for pneumonia. Sepsis secondary to above mild Hypernatremia Oral thrush Neurogenic bladder and history of multiple urinary tract infections Multiple sclerosis at age 39. Currently patient is bedbound Seizure disorder Cognitive impairment Hypertension GERD History of DVT Dysphagia/n.p.o. on PEG tube feeding History of trigeminal neuralgia History of ESBL E. coli urinary tract infections Depression DVT prophylaxis with heparin subcu Plan: Patient will be continued on antibiotics in the form of ceftriaxone and completed azithromycin x 3 dose. Most recent urine culture showed procidentia which is susceptible to ceftriaxone. Urine culture showed E. coli and Morganella morganii. Patient was started on Lasix 40 mg twice daily. Monitor renal function. Pulmonary is on board. c/w D5 water at 75 cc/h. Follow-up BMP tomorrow. Continue with home medications. Currently tube feeding and monitor closely. added free water via PEG tube Prognosis is guarded.
[2023-07-18] MEDS ORDERED: POTASSIUM BICARBONATE/CIT AC 20 MEQ TABLET.EFF PO ONE (21:17)
[2023-07-19] MEDS: HEPARIN SODIUM,PORCINE 5,000 UNIT/ML 1 ML VIAL SQ SCH ×3 (06:20→15:46)
[2023-07-19] MEDS: DEXTROSE 5% IN WATER 1,000 ML IV SCH ×2 (06:20→16:19)
[2023-07-19] MEDS: oxyBUTYnin chloride 5 MG TAB PEG/G-TUBE SCH ×3 (06:21→22:13)
[2023-07-19 06:38] LABS: Basophils % (A) 0 %; Eosinophils # (A) 0.4 k/uL (0-0.7); Eosinophils % (A) 5 %; HCT 43.3 % (39.0-53.0); HGB 13.5 gm/dL (13.0-17.5); Hypochromasia Moderate; Lymphocytes # (A) 1.1 k/uL (1.0-4.8); Lymphocytes % (A) 14 %; MCH 25.3 pg (25.0-35.0); MCHC 31.2 g/dL (31.0-37.0); MCV 81.1 fL (80.0-100.0); Mean Platelet Volume 8.5; Monocytes # (A) 0.6 k/uL (0-1.0); Monocytes % (A) 8 %; Neutrophils # (A) 5.6 k/uL (1.3-7.7); Neutrophils % (A) 71 %; Platelet Count 306 k/uL (150-450); RBC 5.33 m/uL (4.30-5.90); WBC 7.9 k/uL (3.8-10.6)
[2023-07-19 07:04] LABS: African American GFR (CKD) >90 (>60 ml/min/1.73 sqM); Anion Gap 11 mmol/L; Blood Urea Nitrogen 27 mg/dL (9-20); Carbon Dioxide 29 mmol/L (22-30); Chloride 104 mmol/L (98-107); Glucose 150 mg/dL (74-99); Non-African American GFR(CKD) >90 (>60 ml/min/1.73 sqM); Potassium 3.5 mmol/L (3.5-5.1); Sodium 144 mmol/L (137-145)
[2023-07-19] MEDS: ASPIRIN 81 MG PEG/G-TUBE SCH (10:36)
[2023-07-19] MEDS: ATORVASTATIN 40 MG TAB PEG/G-TUBE SCH (10:36)
[2023-07-19] MEDS: METOPROLOL TARTRATE 50 MG TAB PEG/G-TUBE SCH ×2 (10:37→22:13)
[2023-07-19] MEDS: LACTULOSE 20 GM/30 ML CUP PEG/G-TUBE SCH ×3 (10:37→22:13)
[2023-07-19] MEDS: LACOSAMIDE 150 MG TABLET PEG/G-TUBE SCH ×2 (10:37→22:13)
[2023-07-19] MEDS: NYSTATIN 100,000 UNIT/ML SUSP 500,000 UNIT/5 ML CUP PO SCH ×4 (10:38→22:13)
[2023-07-19] MEDS: FAMOTIDINE 20 MG TAB PEG/G-TUBE SCH (11:02)
--- NOTE | 2023-07-19 13:00 | P.PN ---
Subjective Progress Note Date: 07/19/23 This is a 63-year-old gentleman who resides in a custodial. He is usually alert and oriented times one. He has a history of seizures, multiple sclerosis, dementia, chronic indwelling Stein catheter, multiple urinary tract infections, dysphagia and nourished via PEG tube, neurogenic bladder. He was brought into the emergency room yesterday with concerns regarding fevers. He did present with a temperature of 101.7. Chest x-ray shows mild cardiomegaly with mild bilateral central perihilar edema and/or infiltrates. White count 10.6. Hemoglobin 12.4. Platelets 339. Sodium 146. Potassium 4.4. Bicarb 23. BUN 22. Creatinine 0.9. Glucose 105. ProBNP 980. Urine with high WBCs and moderate bacteria. Influenza screen negative. RSV screen negative. COVID-19 screen negative. He is seen today in consultation on the regular medical floor. He is currently laying flat in bed. Awake and alert in no acute distress. Maintaining O2 saturations in the 90s on 3 L/m per nasal cannula. He is currently afebrile. Hemodynamically stable. The patient is seen today 07/16/2023 in follow-up on the regular medical floor. He is currently resting in bed. Awake and alert in no acute distress. Remains nonverbal for the most part. He is maintaining O2 saturations in the mid 90s on 3 L/m per nasal cannula. Afebrile. Hemodynamically stable. Urine culture positive for gram-negative bacilli. Blood cultures pending. White count 8.8. Hemoglobin 12.4. Platelets 291. Sodium 148. Potassium 3.9. Bicarb 23. BUN 20. Creatinine 1.1. Pro-calcitonin 0.15. He remains on ceftriaxone. Continued on IV diuretics. Currently in a -3.5 L balance. Scopolamine patch in place. The patient is seen today 07/17/2023 in follow-up on the regular medical floor. He is currently resting comfortably in bed. Awake. Tracking with his eyes. He is maintaining O2 saturations up to 100% on 4 L/m per nasal cannula. He is afebrile. His urine cultures positive for Morganella morganii. White count 6. 8. Hemoglobin 12.8. Platelets 314. Sodium 150. Potassium 3.7. Bicarb 27. BUN 23. Creatinine 0.9. Glucose 116. He is continued on bronchodilators. Remains on IV diuretics. D5 and half-normal saline 50 ML's per hour. Antibiotics in the form of ceftriaxone. Heparin for DVT prophylaxis. He continues to be nourished with Jevity 1.5 at 20 ML's per hour per his PEG tube. The patient is seen today 07/18/2023 in follow-up on the regular medical floor. He is awake. Resting comfortably in bed. No acute distress. Maintaining O2 saturations in the 90s on 3 L/m per nasal cannula. Being nourished with Jevity at 57 ML's per hour. Urine culture was positive for E. coli and Morganella mor ganii. Blood cultures reveal no growth. Sodium 151. Potassium 3.7. Bicarb 28. BUN 22. Creatinine 0.8. Glucose 142. He is continued on DuoNeb inhalations. Remains on IV diuretics. Scopolamine patch in place. Chest x-ray shows pulmonary venous congestion with right basilar atelectasis. The patient is seen today 07/19/2023 in follow-up on the regular medical floor. He is resting in bed. Awake. Tracking with his eyes. Nonverbal. He is maintaining good O2 saturations in the 90s on 3 L/m per nasal cannula. He has D5W at 75 ML's per hour. White count 10.9. Hemoglobin 13.5. Platelets 306. Sodium 144. Potassium 3.5. Bicarb 29. BUN 27. Creatinine 0.77. Glucose 150. He is continued on DuoNeb inhalations. Scopolamine patch in place. Heparin for DVT prophylaxis. Continues to be nourished with Jevity via his PEG tube with free water flushes. Objective - Vital Signs Vital signs: Vital Signs Temp 98.2 F 07/19/23 12:29 Pulse 65 07/19/23 12:29 Resp 27 H 07/19/23 12:34 BP 138/90 07/19/23 12:29 Pulse Ox 94 L 07/19/23 12:29 FiO2 Intake & Output 07/18/23 07/19/23 07/19/23 18:59 06:59 18:59 Output Total 1700 Balance -1700 Weight 115.5 kg Output: Urine 1700 Other: Voiding Method Indwelling Catheter Indwelling Catheter Indwelling Catheter - Exam GENERAL EXAM: Alert, 63-year-old male, on 3 L nasal cannula, comfortable in no apparent distress. HEAD: Normocephalic. EYES: Normal reaction of pupils, equal size. NOSE: Clear with pink turbinates. THROAT: No erythema or exudates. NECK: No masses, no JVD. CHEST: No chest wall deformity. LUNGS: Equal air entry with few scattered rhonchi, basilar crackles. CVS: S1 and S2 normal with no audible murmur, regular rhythm. ABDOMEN: PEG tube secured in place. No hepatosplenomegaly, normal bowel sounds, no guarding or rigidity. SPINE: No scoliosis or deformity SKIN: No rashes CENTRAL NERVOUS SYSTEM: Unable to assess, tone is normal in all 4 extremities. EXTREMITIES: There is no peripheral edema. No clubbing, no cyanosis. Peripheral pulses are intact. - Labs CBC & Chem 7: 07/19/23 06:02 07/19/23 06:02 Labs: Abnormal Lab Results - Last 24 Hours (Table) 07/18/23 07/18/23 07/19/23 Range/Units 06:29 06:29 06:02 RBC 5.62 H (4.40-5.60) X 10*6/uL MCH 24.2 L (27.0-32.0) pg MCHC 28.8 L (32.0-37.0) d/dL RDW 15.9 H 16.0 H (11.5-14.5) % Eosinophils # 0.40 H (0.04-0.35) X 10*3/uL Sodium 151 H (135-145) mmol/L Chloride 110 H (96-109) mmol/L Anion Gap 12.60 H (4.00-12.00) mmol/L BUN (9-20) mg/dL BUN/Creatinine Ratio 27.25 H (12.00-20.00) Ratio Glucose 142 H (70-110) mg/dL 07/19/23 Range/Units 06:02 RBC (4.40-5.60) X 10*6/uL MCH (27.0-32.0) pg MCHC (32.0-37.0) d/dL RDW (11.5-14.5) % Eosinophils # (0.04-0.35) X 10*3/uL Sodium (135-145) mmol/L Chloride (96-109) mmol/L Anion Gap (4.00-12.00) mmol/L BUN 27 H (9-20) mg/dL BUN/Creatinine Ratio (12.00-20.00) Ratio Glucose 150 H (70-110) mg/dL Assessment and Plan Assessment: Febrile illness secondary to urinary tract infection. Chest x-ray shows some fluid volume overload versus infiltrate. Remains on diuretics Urinary tract infection secondary to E. coli and Morganella morganii. Completed ceftriaxone Leukocytosis secondary to above number recovered Hypernatremia, improving currently 144 History of multiple sclerosis History of dysphagia, nourished via PEG tube with Jevity 1.2 History of previous ventilatory dependent respiratory failure from pneumonia History of seizures History of dementia History of multiple urinary tract infections secondary to ESBL, MRSA Plan: The patient was seen and evaluated Labs and medications reviewed Continued on D5W at 75 ML's per hour Completed ceftriaxone Plan is to return to [facility] at discharge I have personally seen and examined the patient, performed the documentation and the assessment and plan as written. Number of minutes spent on the visit: 10.
--- NOTE | 2023-07-19 14:44 | P.PN ---
Subjective Progress Note Date: 07/19/23 Patient is a 63-year-old male with a past medical history of hypertension, multiple sclerosis, seizure disorder, dementia, chronic indwelling Stein catheter in 1 history of multiple urinary tract infection, dysphagia on PEG tube, neurogenic bladder. Patient is awake and alert x1 but nonverbal at baseline. Patient was sent to ER from long term due to patient being lethargic and was having fever. Patient was admitted to hospital in May 2023 with sepsis secondary to urinary tract infection, ileus and elevated troponin levels. Most recent urine cultures on 05/16/2023 are growing Providencia rettgeri stuartii susceptible to ceftriaxone. Chest x-ray showed perihilar and basilar infiltrates noted. Correlate for pneumonia. EKG showed sinus rhythm. Laboratory showed WBC 17.3 hemoglobin 15.4 and platelets 383 Sodium 141 potassium 5.8 with slight hemolysis. Chloride 101 bicarb is 19 BUN 31 and creatinine 0.82 and blood sugar is 148. Liver enzymes are not elevated. Urinalysis showed trace blood positive nitrite large leukocyte esterase with elevated RBCs and WBCs. Influenza A, B, RSV and COVID-19 PCR not detected. Tmax 101.7 on admission. Patient was tachycardic and tachypneic. 07/15/2023 Patient is currently lying in the bed. Awake alert but patient is nonverbal at baseline. Remains on antibiotics in the form of ceftriaxone for urinary tract infection. On oxygen at 3 L via nasal cannula. Repeat chest x-ray this morning showed mild cardiomegaly with mild bilateral central perihilar edema and less likely infiltrates. Demonstrated. No significant change from 1 day prior.. CH F will be favored. Patient was started on Lasix 40 mg twice daily. Pulmonary is on board. Urine culture is growing gram-negative bacilli. Patient was also noted to have oral thrush. Laboratory showed WBC 10.6 hemoglobin 12.4 and platelets 339 sodium 146 potassium 4.4 chloride 107 bicarb is 23.2 BUN 2020 creatinine 0.9 and blood sugar is 105 07/16/2023 Patient is lying in the bed comfortably. Nonverbal at baseline. Able to open his eyes. Unable to follow complete commands. Otherwise patient is afebrile. Tolerating tube feedings. Laboratory data showed WBC down to 8.85 hemoglobin 12.4 and platelets 291 Sodium 148 potassium 3.9 chloride 110 bicarb is 22.8 BUN 20.2 and creatinine 1.1 Patient is being cannula antibiotics at home ceftriaxone. Urine culture showed gram-negative bacilli and Morganella morganii. Blood cultures negative so far. Patient is being diuresed with Lasix 40 mg every 12. Pulmonary is on board. 07/17/2023 Patient is more awake. Able to track with eyes. Patient is nonverbal at baseline. Family is at bedside. Patient has been afebrile. No nausea or vomiting. Tolerating tube feeding. Patient is also being continued Lasix 40 mg twice daily. Laboratory data showed sodium 150 potassium 3.7 chloride 107 bicarb is 27.2 BUN 22.5 and creatinine 0.9. Urine culture showed E. coli and Morganella morganii. Patient is being continued on ceftriaxone. WBC came down to 6.8 hemoglobin 12.8 and platelets 314. Pulmonary is on board. Repeat chest x-ray today showed correlate for mild pulmonary edema and volume overload. 07/18/2023 Patient is currently resting in bed. Awake alert but could not communicate. Nonverbal. Patient has been afebrile. No nausea or vomiting. Tolerating tube feeding. Patient is being continued on ceftriaxone. Sodium level increased to 151 today. Chest x-ray showing vascular congestion. Patient remains on IV Lasix 40 mg twice daily. Pulmonary is following. Free water via PEG tube 200 cc every 6 hourly was ordered. Other laboratory showed WBC 8.0 hemoglobin 13.6 and platelets 334 Sodium 151 potassium 3.7 chloride 110 bicarb is 28.4 BUN 21.8 and creatinine 0.8 and blood sugar is 142. 07/19. Patient seen and examined. Vital signs done this morning showed temperature 98.6, heart rate 96, blood pressure 169/79, currently on 3 L of oxygen. Blood work showed WBC 7, hemoglobin 13.5, platelet count 306, sodium 144, potassium 3.5, BUN 27, creatinine 0.77 REVIEW OF SYSTEMS: Review of systems cannot be obtained because of patient mental status PHYSICAL EXAMINATION: GENERAL: The patient is lethargic, chronically ill looking HEENT: Pupils are round and equally reacting to light. EOMI. No scleral icterus. No conjunctival pallor. Normocephalic, atraumatic. No pharyngeal erythema. No thyromegaly. CARDIOVASCULAR: S1 and S2 present. No murmurs, rubs, or gallops. PULMONARY: Diminished breath sounds at the bases bilaterally ABDOMEN: Soft, nontender, PEG tube seen MUSCULOSKELETAL: No joint swelling or deformity. EXTREMITIES: No cyanosis, clubbing, or pedal edema. NEUROLOGICAL: Patient at baseline is only alert to self, more lethargic this morning, unable to perform detailed neuro exam SKIN: No rashes. Assessment and plan Acute urinary tract infection. Possible Acute bilateral pneumonia vs fluid load. Low suspicious for pneumonia. Sepsis secondary to above mild Hypernatremia Oral thrush Neurogenic bladder and history of multiple urinary tract infections Multiple sclerosis at age 39. Currently patient is bedbound Seizure disorder Cognitive impairment Hypertension GERD History of DVT Dysphagia/n.p.o. on PEG tube feeding History of trigeminal neuralgia History of ESBL E. coli urinary tract infections Depression Monitor vital signs Monitor CBC Monitor CMP Patient completed course of IV antibiotics Ordered CT head without contrast Continue Vimpat, Tegretol. Continue aspirin, Lipitor Continue tube feeding Pulmonology following Labs and medication were reviewed.. Continue same treatment. Continue with symptomatic treatment. Resume home medication. Monitor labs and vitals. DVT and GI prophylaxis. Further recommendations as per clinical course of the patient Dictation was produced using [employer] dictation software. please excuse any grammatical, word or spelling errors. Objective - Vital Signs Vital signs: Vital Signs Temp 99.6 F 07/19/23 07:31 Pulse 96 07/19/23 07:31 Resp 25 H 07/19/23 07:31 BP 169/79 07/19/23 07:31 Pulse Ox 97 07/19/23 07:31 FiO2 Intake & Output 07/18/23 07/19/23 07/19/23 18:59 06:59 18:59 Output Total 1700 Balance -1700 Weight 115.5 kg Output: Urine 1700 Other: Voiding Method Indwelling Catheter Indwelling Catheter Indwelling Catheter - Labs CBC & Chem 7: 07/19/23 06:02 07/19/23 06:02 Labs: Abnormal Lab Results - Last 24 Hours (Table) 07/18/23 07/18/23 07/19/23 Range/Units 06:29 06:29 06:02 RBC 5.62 H (4.40-5.60) X 10*6/uL MCH 24.2 L (27.0-32.0) pg MCHC 28.8 L (32.0-37.0) d/dL RDW 15.9 H 16.0 H (11.5-14.5) % Eosinophils # 0.40 H (0.04-0.35) X 10*3/uL Sodium 151 H (135-145) mmol/L Chloride 110 H (96-109) mmol/L Anion Gap 12.60 H (4.00-12.00) mmol/L BUN (9-20) mg/dL BUN/Creatinine Ratio 27.25 H (12.00-20.00) Ratio Glucose 142 H (70-110) mg/dL 07/19/23 Range/Units 06:02 RBC (4.40-5.60) X 10*6/uL MCH (27.0-32.0) pg MCHC (32.0-37.0) d/dL RDW (11.5-14.5) % Eosinophils # (0.04-0.35) X 10*3/uL Sodium (135-145) mmol/L Chloride (96-109) mmol/L Anion Gap (4.00-12.00) mmol/L BUN 27 H (9-20) mg/dL BUN/Creatinine Ratio (12.00-20.00) Ratio Glucose 150 H (70-110) mg/dL
--- NOTE | 2023-07-19 16:18 | CT ---
EXAMINATION TYPE: CT brain wo con DATE OF EXAM: 07/19/2023 COMPARISON: 05/13/23 HISTORY: AMS CT DLP: 1181.[address] of the brain was performed. The ventricles, basal cisterns and sulci overlying the cerebral convexities demonstrate mild enlargem ent. There is no evidence for intracranial hemorrhage or sulcal effacement. There is decreased attenuation about the periventricular white matter and deep white matter of both c erebral hemispheres, compatible with chronic small vessel ischemia. Differential diagnosis does inclu de demyelination. No mass effects are seen.No midline shift. Osseous calvarium is intact. If symptoms persist consider MRI. IMPRESSION: 1. Age related atrophic and chronic small vessel ischemic change without acute intracranial process s een at this time.
[2023-07-20] MEDS: HEPARIN SODIUM,PORCINE 5,000 UNIT/ML 1 ML VIAL SQ SCH ×2 (00:26→08:54)
[2023-07-20] MEDS: oxyBUTYnin chloride 5 MG TAB PEG/G-TUBE SCH ×2 (05:52→14:12)
[2023-07-20] MEDS: DEXTROSE 5% IN WATER 1,000 ML IV SCH (05:56)
[2023-07-20] MEDS: ATORVASTATIN 40 MG TAB PEG/G-TUBE SCH (08:57)
[2023-07-20] MEDS: ASPIRIN 81 MG PEG/G-TUBE SCH (08:57)
[2023-07-20] MEDS: FAMOTIDINE 20 MG TAB PEG/G-TUBE SCH (08:57)
[2023-07-20] MEDS: LACOSAMIDE 150 MG TABLET PEG/G-TUBE SCH (08:58)
[2023-07-20] MEDS: LACTULOSE 20 GM/30 ML CUP PEG/G-TUBE SCH (08:58)
[2023-07-20] MEDS: METOPROLOL TARTRATE 50 MG TAB PEG/G-TUBE SCH (08:58)
[2023-07-20] MEDS: NYSTATIN 100,000 UNIT/ML SUSP 500,000 UNIT/5 ML CUP PO SCH ×2 (08:59→14:11)
--- NOTE | 2023-07-20 12:44 | P.DS ---
Providers Date of admission: 07/14/23 14:07 Expected date of discharge: 07/20/23 Attending physician: Yair Alvarez Consults: 07/14/23 14:05 Consult Physician Routine Consulting Provider: Royal Kumar Consult Reason/Comments: Pneumonia, sepsis Do you want consulting provider notified?: Yes Primary care physician: Stated None Hospital Course: Discharge diagnoses; Acute urinary tract infection. Possible Acute bilateral pneumonia vs fluid load. Low suspicious for pneumonia. Sepsis secondary to above mild Hypernatremia Oral thrush Neurogenic bladder and history of multiple urinary tract infections Multiple sclerosis at age 39. Currently patient is bedbound Seizure disorder Cognitive impairment Hypertension GERD History of DVT Dysphagia/n.p.o. on PEG tube feeding History of trigeminal neuralgia History of ESBL E. coli urinary tract infections Depression Hospital course; Patient is a 63-year-old male with a past medical history of hypertension, multiple sclerosis, seizure disorder, dementia, chronic indwelling Stein catheter in 1 history of multiple urinary tract infection, dysphagia on PEG tube, neurogenic bladder. Patient is awake and alert x1 but nonverbal at baseline. Patient was sent to ER from half-way due to patient being lethargic and was having fever. Patient was admitted to hospital in May 2023 with sepsis secondary to urinary tract infection, ileus and elevated troponin levels. Most recent urine cultures on 05/16/2023 are growing [address] rett[address]i st uartii susceptible to ceftriaxone. Chest x-ray showed perihilar and basilar infiltrates noted. Correlate for pneumonia. EKG showed sinus rhythm. Laboratory showed WBC 17.3 hemoglobin 15.4 and platelets 383 Sodium 141 potassium 5.8 with slight hemolysis. Chloride 101 bicarb is 19 BUN 31 and creatinine 0.82 and blood sugar is 148. Liver enzymes are not elevated. Urinalysis showed trace blood positive nitrite large leukocyte esterase with elevated RBCs and WBCs. Influenza A, B, RSV and COVID-19 PCR not detected. Tmax 101.7 on admission. Patient was tachycardic and tachypneic. 07/15/2023 Patient is currently lying in the bed. Awake alert but patient is nonverbal at baseline. Remains on antibiotics in the form of ceftriaxone for urinary tract infection. On oxygen at 3 L via nasal cannula. Repeat chest x-ray this morning showed mild cardiomegaly with mild bilateral central perihilar edema and less likely infiltrates. Demonstrated. No significant change from 1 day prior.. CHF will be favored. Patient was started on Lasix 40 mg twice daily. Pulmonary is on board. Urine culture is growing gram-negative bacilli. Patient was also noted to have oral thrush. Laboratory showed WBC 10.6 hemoglobin 12.4 and platelets 339 sodium 146 potassium 4.4 chloride 107 bicarb is 23.2 BUN 2020 creatinine 0.9 and blood sugar is 105 07/16/2023 Patient is lying in the bed comfortably. Nonverbal at baseline. Able to open his eyes. Unable to follow complete commands. Otherwise patient is afebrile. Tolerating tube feedings. Laboratory data showed WBC down to 8.85 hemoglobin 12.4 and platelets 291 Sodium 148 potassium 3.9 chloride 110 bicarb is 22.8 BUN 20.2 and creatinine 1.1 Patient is being cannula antibiotics at home ceftriaxone. Urine culture showed gram-negative bacilli and Morganella morganii. Blood cultures negative so far. Patient is being diuresed with Lasix 40 mg every 12. Pulmonary is on board. 07/17/2023 Patient is more awake. Able to track with eyes. Patient is nonverbal at baseline. Family is at bedside. Patient has been afebrile. No nausea or vomiting. Tolerating tube feeding. Patient is also being continued Lasix 40 mg twice daily. Laboratory data showed sodium 150 potassium 3.7 chloride 107 bicarb is 27.2 BUN 22.5 and creatinine 0.9. Urine culture showed E. coli and Morganella morganii. Patient is being continued on ceftriaxone. WBC came down to 6.8 hemoglobin 12.8 and platelets 314. Pulmonary is on board. Repeat chest x-ray today showed correlate for mild pulmonary edema and volume overload. 07/18/2023 Patient is currently resting in bed. Awake alert but could not communicate. Nonverbal. Patient has been afebrile. No nausea or vomiting. Tolerating tube feeding. Patient is being continued on ceftriaxone. Sodium level increased to 151 today. Chest x-ray showing vascular congestion. Patient remains on IV Lasix 40 mg twice daily. Pulmonary is following. Free water via PEG tube 200 cc every 6 hourly was ordered. Other laboratory showed WBC 8.0 hemoglobin 13.6 and platelets 334 Sodium 151 potassium 3.7 chloride 110 bicarb is 28.4 BUN 21.8 and creatinine 0.8 and blood sugar is 142. 07/19. Patient seen and examined. Vital signs done this morning showed temperature 98.6, heart rate 96, blood pressure 169/79, currently on 3 L of oxygen. Blood work showed WBC 7, hemoglobin 13.5, platelet count 306, sodium 144, potassium 3.5, BUN 27, creatinine 0.77 07/20. Patient seen and examined. CT brain done showed no acute stroke, showed age-related atrophic and chronic small vessel ischemic changes. Discharge back to rehab facility PHYSICAL EXAMINATION: GENERAL: The patient is alert, chronically ill looking HEENT: Pupils are round and equally reacting to light. EOMI. No scleral icterus. No conjunctival pallor. Normocephalic, atraumatic. No pharyngeal erythema. No thyromegaly. CARDIOVASCULAR: S1 and S2 present. No murmurs, rubs, or gallops. PULMONARY: Diminished breath sounds at the bases bilaterally ABDOMEN: Soft, nontender, PEG tube seen MUSCULOSKELETAL: No joint swelling or deformity. EXTREMITIES: No cyanosis, clubbing, or pedal edema. NEUROLOGICAL: Patient at baseline is only alert to self, unable to perform detailed neuro exam SKIN: No rashes. Dictation was produced using [employer] dictation software. please excuse any grammatical, word or spelling errors. Patient Condition at Discharge: Fair Plan - Discharge Summary Discharge Rx Participant: No New Discharge Prescriptions: New Nystatin 100,000 Unit/ml Susp [Mycostatin Oral Susp] 500,000 unit PO QID 7 Days ml Continue Ipratropium-Albuterol Nebulize [Duoneb 0.5 mg-3 mg/3 ml Soln] 3 ml INHALATION RT-Q4H Aspirin 81 mg PEG/G-TUBE DAILY@0900 Acetaminophen Tab [Tylenol] 650 mg PEG/G-TUBE Q4H PRN PRN Reason: Fever And/ Or Pain carBAMazepine [carBAMazepine Oral Susp] 100 mg PEG/G-TUBE TID@0600,1400,2200 Amantadine Hcl Solution 50mg/5ml 100 mg PEG/G-TUBE DAILY@0900 Scopolamine [Scopolamine 1 MG/72 HR patch] 2 patch TRANSDERM Q72H Lactulose 20 gm PEG/G-TUBE TID@0900,1700,2100 Lacosamide [Vimpat] 150 mg PEG/G-TUBE BID@0900,2100 #4 tab Metoprolol Tartrate [Lopressor] 50 mg PEG/G-TUBE BID@0900,2100 Baclofen [Lioresal] 5 mg PEG/G-TUBE TID@0600,1400,2200 tab oxyBUTYnin chloride 5 mg PEG/G-TUBE TID@0600,1400,220 Atorvastatin [Lipitor] 40 mg PEG/G-TUBE DAILY Famotidine [Pepcid] 20 mg PEG/G-TUBE DAILY Discharge Medication List Ipratropium-Albuterol Nebulize [Duoneb 0.5 mg-3 mg/3 ml Soln] 3 ml INHALATION RT-Q4H 12/16/19 [History] Aspirin 81 mg PEG/G-TUBE DAILY@0900 11/27/20 [History] Acetaminophen Tab [Tylenol] 650 mg PEG/G-TUBE Q4H PRN 06/13/21 [History] Metoprolol Tartrate [Lopressor] 50 mg PEG/G-TUBE BID@0900,209906/13/21 [History] carBAMazepine [carBAMazepine Oral Susp] 100 mg PEG/G-TUBE TID@0600,1400,219907/02/21 [History] Amantadine Hcl Solution 50mg/5ml 100 mg PEG/G-TUBE DAILY@0900 12/22/21 [History] Lactulose 20 gm PEG/G-TUBE TID@0900,1700,209901/03/22 [History] Scopolamine [Scopolamine 1 MG/72 HR patch] 2 patch TRANSDERM Q72H 01/03/22 [History] Baclofen [Lioresal] 5 mg PEG/G-TUBE TID@0600,1400,2200 tab 05/03/22 [Rx] Lacosamide [Vimpat] 150 mg PEG/G-TUBE BID@0900,2100 #4 tab 05/03/22 [Rx] oxyBUTYnin chloride 5 mg PEG/G-TUBE TID@0600,1400,2200 12/19/22 [History] Atorvastatin [Lipitor] 40 mg PEG/G-TUBE DAILY 07/14/23 [History] Famotidine [Pepcid] 20 mg PEG/G-TUBE DAILY 07/14/23 [History] Nystatin 100,000 Unit/ml Susp [Mycostatin Oral Susp] 500,000 unit PO QID 7 Days ml 07/20/23 [Rx] Follow up Appointment(s)/Referral(s): None,Stated [Primary Care Provider] - 1-2 days Discharge Disposition: TRANSFER TO SNF/ECF
[2023-07-20 14:04] VITALS: BP 110/64; PULSE 88; RESP 18; TEMP 98.8; BMI 28.0
--- NOTE | 2023-07-20 16:33 | P.PN ---
Subjective Progress Note Date: 07/20/23 This is a 63-year-old gentleman who resides in a correction. He is usually alert and oriented times one. He has a history of seizures, multiple sclerosis, dementia, chronic indwelling Stein catheter, multiple urinary tract infections, dysphagia and nourished via PEG tube, neurogenic bladder. He was brought into the emergency room yesterday with concerns regarding fevers. He did present with a temperature of 101.7. Chest x-ray shows mild cardiomegaly with mild bilateral central perihilar edema and/or infiltrates. White count 10.6. Hemoglobin 12.4. Platelets 339. Sodium 146. Potassium 4.4. Bicarb 23. BUN 22. Creatinine 0.9. Glucose 105. ProBNP 980. Urine with high WBCs and moderate bacteria. Influenza screen negative. RSV screen negative. COVID-19 screen negative. He is seen today in consultation on the regular medical floor. He is currently laying flat in bed. Awake and alert in no acute distress. Maintaining O2 saturations in the 90s on 3 L/m per nasal cannula. He is currently afebrile. Hemodynamically stable. The patient is seen today 07/16/2023 in follow-up on the regular medical floor. He is currently resting in bed. Awake and alert in no acute distress. Remains nonverbal for the most part. He is maintaining O2 saturations in the mid 90s on 3 L/m per nasal cannula. Afebrile. Hemodynamically stable. Urine culture positive for gram-negative bacilli. Blood cultures pending. White count 8.8. Hemoglobin 12.4. Platelets 291. Sodium 148. Potassium 3.9. Bicarb 23. BUN 20. Creatinine 1.1. Pro-calcitonin 0.15. He remains on ceftriaxone. Continued on IV diuretics. Currently in a -3.5 L balance. Scopolamine patch in place. The patient is seen today 07/17/2023 in follow-up on the regular medical floor. He is currently resting comfortably in bed. Awake. Tracking with his eyes. He is maintaining O2 saturations up to 100% on 4 L/m per nasal cannula. He is afebrile. His urine cultures positive for Morganella morganii. White count 6. 8. Hemoglobin 12.8. Platelets 314. Sodium 150. Potassium 3.7. Bicarb 27. BUN 23. Creatinine 0.9. Glucose 116. He is continued on bronchodilators. Remains on IV diuretics. D5 and half-normal saline 50 ML's per hour. Antibiotics in the form of ceftriaxone. Heparin for DVT prophylaxis. He continues to be nourished with Jevity 1.5 at 20 ML's per hour per his PEG tube. The patient is seen today 07/18/2023 in follow-up on the regular medical floor. He is awake. Resting comfortably in bed. No acute distress. Maintaining O2 saturations in the 90s on 3 L/m per nasal cannula. Being nourished with Jevity at 57 ML's per hour. Urine culture was positive for E. coli and Morganella mor ganii. Blood cultures reveal no growth. Sodium 151. Potassium 3.7. Bicarb 28. BUN 22. Creatinine 0.8. Glucose 142. He is continued on DuoNeb inhalations. Remains on IV diuretics. Scopolamine patch in place. Chest x-ray shows pulmonary venous congestion with right basilar atelectasis. The patient is seen today 07/19/2023 in follow-up on the regular medical floor. He is resting in bed. Awake. Tracking with his eyes. Nonverbal. He is maintaining good O2 saturations in the 90s on 3 L/m per nasal cannula. He has D5W at 75 ML's per hour. White count 10.9. Hemoglobin 13.5. Platelets 306. Sodium 144. Potassium 3.5. Bicarb 29. BUN 27. Creatinine 0.77. Glucose 150. He is continued on DuoNeb inhalations. Scopolamine patch in place. Heparin for DVT prophylaxis. Continues to be nourished with Jevity via his PEG tube with free water flushes. The patient is seen today 07/20/2023 in follow-up on the regular medical floor. He is awake. Tracking with his eyes. He did say "okay" when we asked how he was doing today. He continues to maintain good O2 saturations in the 90s on 3 L/m per nasal cannula. He's been afebrile. Hemodynamically stable. Urine culture was positive for E. coli and Morganella morganii. Completed a course of ceftriaxone. Blood cultures revealed no growth. Continues to be nourished with Jevity via his PEG tube with free water flushes.He is continued on DuoNeb inhalations. Scopolamine patch in place. Heparin for DVT prophylaxis. Objective - Vital Signs Vital signs: Vital Signs Temp 98.8 F 07/20/23 13:57 Pulse 88 07/20/23 13:57 Resp 18 07/20/23 13:57 BP 110/64 07/20/23 13:57 Pulse Ox 98 07/20/23 13:57 FiO2 Intake & Output 07/19/23 07/20/23 07/20/23 18:59 06:59 18:59 Output Total 700 Balance -700 Weight 86 kg 86 kg Output: Urine 700 Other: Voiding Method Indwelling Catheter Indwelling Catheter Indwelling Catheter # Voids 1 - Exam GENERAL EXAM: Alert, 63-year-old male, resting comfortably in bed, on 3 L nasal cannula, in no apparent distress. HEAD: Normocephalic. EYES: Normal reaction of pupils, equal size. NOSE: Clear with pink turbinates. THROAT: No erythema or exudates. NECK: No masses, no JVD. CHEST: No chest wall deformity. LUNGS: Equal air entry with few scattered rhonchi, basilar crackles. CVS: S1 and S2 normal with no audible murmur, regular rhythm. ABDOMEN: PEG tube secured in place. No hepatosplenomegaly, normal bowel sounds, no guarding or rigidity. SPINE: No scoliosis or deformity SKIN: No rashes CENTRAL NERVOUS SYSTEM: Unable to assess, tone is normal in all 4 extremities. EXTREMITIES: There is no peripheral edema. No clubbing, no cyanosis. Peripheral pulses are intact. - Labs CBC & Chem 7: 07/19/23 06:02 07/19/23 06:02 Labs: Microbiology - Last 24 Hours (Table) 07/14/23 11:35 Blood Culture - Final Blood 07/14/23 11:35 Blood Culture - Final Blood Assessment and Plan Assessment: Febrile illness secondary to urinary tract infection. Chest x-ray shows some fluid volume overload versus infiltrate. Remains on diuretics Urinary tract infection secondary to E. coli and Morganella morganii. Completed ceftriaxone Leukocytosis secondary to above number recovered Hypernatremia, improving currently 144 History of multiple sclerosis History of dysphagia, nourished via PEG tube with Jevity 1.2 History of previous ventilatory dependent respiratory failure from pneumonia History of seizures History of dementia History of multiple urinary tract infections secondary to ESBL, MRSA Plan: The patient was seen and evaluated Medications reviewed Stable and on 3 L nasal cannula Plan is to return to [facility] at discharge I have personally seen and examined the patient, performed the documentation and the assessment and plan as written. Number of minutes spent on the visit: 10.
--- NOTE | 2023-07-24 07:02 | CDI ---
Documentation Clarification Form Date: 07/24/2023 06:52:00 AM From: Ayanna Pedraza RN, CCDS Admit Date: 07/14/2023 02:07:00 PM Patient Name: Chris Marvin Visit Number: [id number] Discharge Date: 07/20/2023 03:56:00 PM ATTENTION: The Clinical Documentation Specialists (CDI) and [facility] Coding Staff appreciate your assistance in clarifying documentation. Please respond to the clarification below the line at the bottom and electronically sign. The CDI & [facility] Coding staff will review the response and follow-up if needed. Please note: Queries are made part of the Legal Health Record. If you have any questions, please contact the author of this message via ITS. Dr. Gio Paige Your patient has fluid load documented in the H/P and subsequent progress and was started on Lasix 40 mg IV Daily. Based on this information and the findings below, is there an additional diagnosis that is clinically appropriate for this patient? Patient history/risk factors: (DVT), GERD/Reflux, Hypertension, MS at the age of 39 yrs, UTI, neurogenic bladder with IDC Clinical Indicators: 63 year-old male present from [facility], with shortness of breath, fever. 07/14 149/98 89 24 101.7 97% 2/L NC 07/14Lab results: WBC 17.3, Lactic acid 1.9 07/15 BNP 980 07/14 CXR: Perihilar and basilar infiltrates noted. Correlate for pneumonia. 07/15 CXR: Mild cardiomegaly with mild bilateral central perihilar edema and/or less likely infiltrates redemonstrated. No significant changes from one day earlier. CHF exacerbation would be favored. ECHO (last reported 05/04/2021) Left ventricular systolic function is normal with, an EF between 55-60% trace to mild mitral regurgitation, trace tricuspid regurgitation Treatment: Monitor I/O, Daily weight Lipitor 40MG Daily (PEG) Lasix 40 MG IV Q 12 Lopressor 50 MG (PEG) BID The patient with abnormal chest X-ray treated with Lasix IV. Please clarify what you are treating? [ ] Acute pulmonary edema due to other etiology [ ] Acute CHF preserved ejection fraction [ ] Unable to determine [ ] Other, please specify (Template Last Reviewed: November 2022) MTDD
== END 2023-07-20 15:56 | DRG 698 ==
LOC: EC 11:21 → 4SSUR 14:07
PROVIDERS: ADMIT Internal Medicine; ATTEND Internal Medicine
DX: T83.511A Infection and inflammatory reaction due to indwelling urethral catheter, initial encounter (principal); A41.51 Sepsis due to Escherichia coli [E. coli]; A41.59 Other Gram-negative sepsis; B37.0 Candidal stomatitis; E87.0 Hyperosmolality and hypernatremia; Z43.1 Encounter for attention to gastrostomy; F03.93 Unspecified dementia, unspecified severity, with mood disturbance; J98.11 Atelectasis; Z16.24 Resistance to multiple antibiotics; L89.159 Pressure ulcer of sacral region, unspecified stage; I11.0 Hypertensive heart disease with heart failure; I50.9 Heart failure, unspecified; G40.909 Epilepsy, unspecified, not intractable, without status epilepticus; G35 Multiple sclerosis; N39.0 Urinary tract infection, site not specified; Z11.52 Encounter for screening for COVID-19; R13.10 Dysphagia, unspecified; N31.9 Neuromuscular dysfunction of bladder, unspecified; K21.9 Gastro-esophageal reflux disease without esophagitis; D64.9 Anemia, unspecified; G50.0 Trigeminal neuralgia; R15.9 Full incontinence of feces; R47.1 Dysarthria and anarthria; Z79.82 Long term (current) use of aspirin; Z79.899 Other long term (current) drug therapy; Z86.718 Personal history of other venous thrombosis and embolism; Z87.440 Personal history of urinary (tract) infections; Z86.19 Personal history of other infectious and parasitic diseases; Z74.01 Bed confinement status; Y84.6 Urinary catheterization as the cause of abnormal reaction of the patient, or of later complication, without mention of misadventure at the time of the procedure; Z88.1 Allergy status to other antibiotic agents
CPT/HCPCS: 36415; 70450; 71045; 80048; 80053; 81001; 83605; 83880; 84145; 85025; 85610; 85730; 87040; 87077; 87086; 87186; 87449; 87636; 93005; 94640; 96365; 96366; 96367; 99291

== ENCOUNTER 2023-08-22 18:45 | Emergency (ER) | payer MEDICARE, OTHER ==
--- NOTE | 2023-08-22 19:45 | ED ---
General Adult HPI - General Chief complaint: Recheck/Abnormal Lab/Rx Stated complaint: TUBE REPLACEMENT Time Seen by Provider: 08/22/23 19:01 Source: EMS, RN notes reviewed, old records reviewed Mode of arrival: EMS Limitations: altered mental status - History of Present Illness Initial comments: 63-year-old male presents for PEG tube replacement. Patient was sent in from [facility] with request for replacement of PEG tube, leaking PEG tube. - Related Data Home Medications Medication Instructions Recorded Confirmed Ipratropium-Albuterol Nebulize 3 ml INHALATION RT-Q4H 12/16/19 07/14/23 [Duoneb 0.5 mg-3 mg/3 ml Soln] Aspirin 81 mg PEG/G-TUBE DAILY@0900 11/27/20 07/14/23 Acetaminophen Tab [Tylenol] 650 mg PEG/G-TUBE Q4H PRN 06/13/21 07/14/23 Metoprolol Tartrate [Lopressor] 50 mg PEG/G-TUBE BID@0900,2100 06/13/21 07/14/23 carBAMazepine [carBAMazepine Oral 100 mg PEG/G-TUBE 07/02/21 07/14/23 Susp] TID@0600,1400,2200 Amantadine Hcl Solution 50mg/5ml 100 mg PEG/G-TUBE DAILY@0900 12/22/21 07/14/23 Lactulose 20 gm PEG/G-TUBE TID@0900,1700,2100 01/03/22 07/14/23 Scopolamine [Scopolamine 1 MG/72 2 patch TRANSDERM Q72H 01/03/22 07/14/23 HR patch] oxyBUTYnin chloride 5 mg PEG/G-TUBE TID@0600,1400,2200 12/19/22 07/14/23 Atorvastatin [Lipitor] 40 mg PEG/G-TUBE DAILY 07/14/23 07/14/23 Famotidine [Pepcid] 20 mg PEG/G-TUBE DAILY 07/14/23 07/14/23 Previous Rx's Medication Instructions Recorded Baclofen [Lioresal] 5 mg PEG/G-TUBE TID@0600,1400,2200 05/03/22 tab Lacosamide [Vimpat] 150 mg PEG/G-TUBE BID@0900,2100 #6 10/20/23 tab Nystatin 100,000 Unit/ml Susp 500,000 unit PO QID 7 Days ml 07/20/23 [Mycostatin Oral Susp] Allergies Allergy/AdvReac Type Severity Reaction Status Date / Time meropenem [From Merrem] Allergy Rash/Hives Verified 08/22/23 19:04 ceftolozane [From Zerbaxa] AdvReac Rapid Verified 08/22/23 19:04 Heart Rate tazobactam [From Zerbaxa] AdvReac Rapid Verified 08/22/23 19:04 Heart Rate Review of Systems ROS Statement: Those systems with pertinent positive or pertinent negative responses have been documented in the HPI. ROS Other: All systems not noted in ROS Statement are negative. Past Medical History Past Medical History: Deep Vein Thrombosis (DVT), GERD/Reflux, Hypertension, Musculoskeletal Disorder, Neurologic Disorder, Pneumonia, Seizure Disorder, Skin Disorder Additional Past Medical History / Comment(s): Pt diagnosed with MS at the age of 39 yrs, seizure/pneumonia/UTI with sepsis/respirtory failure/vented, cognitive impairment, sister states when he is feeling well he could speak a few words/nod head appropriately/give thumbs up/roll eyes but when ill is nonverbal, pt has dysphagia/NPO with peg tube, contractures, last seizure 07/2020, trigeminal neuralgia, dysarthria/anarthria/neurogenic bladder with IDC-UTIs/sepsis, multiple pneumonias, recent seizure-last one 07/03/20, incontinent of stool, pt has had decubitus ulcer coccyx-sister unsure of skin condition at this time, past anemia r/t heparin/epistaxiis which involved nasal packing/transfusions, DVT bilateral arms, hypoxia, oxygen at 2L/NC, L femoral head fracture History of Any Multi-Drug Resistant Organisms: ESBL, MRSA, Other MDRO Date of last positivie culture/infection: 03/09/21-MRSA; 11/23/19 ESBL-E.coli MDRO Source:: Abdomen-Peg site MRSA; Urine -ESBL Past Surgical History: Tonsillectomy Additional Past Surgical History / Comment(s): Gastrostomy, peg tube, I&D coccyx decubitius, bronchoscopy, bilateral lasik eye surgery. Past Anesthesia/Blood Transfusion Reactions: No Reported Reaction Additional Past Anesthesia/Blood Transfusion Reaction / Comment(s): Pt has received blood in past without reaction. Past Psychological History: Depression Smoking Status: Never smoker Past Alcohol Use History: None Reported Past Drug Use History: None Reported - Past Family History Father Family Medical History: Myocardial Infarction ([place]) Mother Family Medical History: Hypertension, Myocardial Infarction ([place]) Additional Family Medical History / Comment(s): Mother of a MN at the age of 73 yrs. General Exam Limitations: no limitations General appearance: in distress Head exam: Present: atraumatic, normocephalic Eye exam: Present: normal appearance, PERRL Respiratory exam: Present: rhonchi. Absent: respiratory distress Cardiovascular Exam: Present: regular rate, normal rhythm GI/Abdominal exam: Present: soft. Absent: distended Neurological exam: Present: alert, oriented X3, CN II-XII intact. Absent: motor sensory deficit Skin exam: Present: warm, dry, intact. Absent: cyanosis, diaphoretic Course Vital Signs 08/22/23 08/22/23 08/22/23 19:02 19:05 21:04 Temperature 98.8 F Pulse Rate 67 80 Respiratory 18 20 Rate Blood Pressure 177/84 174/90 O2 Sat by Pulse 92 L 92 L Oximetry Procedures - Feeding Tube Replacement Reason for Replacement: not functioning/damaged Initial Tube Inserted: greater than 2 weeks Type of Tube: gastrostomy Use of Tube: medications and feeding Insertion Site Prior to Procedure: clean Tube Used for Reinsertion: other (New tube) Verification of Placement: KUB Tube Secured by: tape/dressing Patient Tolerated Procedure: well Medical Decision Making - Medical Decision Making Was pt. sent in by a medical professional or institution (, PA, DOCUMENT PHOTOGRAPHER, urgent c are, hospital, or [facility]...) When possible be specific @ -No Did you speak to anyone other than the patient for history (EMS, parent, family, police, friend...)? What history was obtained from this source @ -No Did you review nursing and triage notes (agree or disagree)? Why? @ -I reviewed and agree with nursing and triage notes Were old charts reviewed (outside hosp., previous admission, EMS record, old EKG, old radiological studies, urgent care reports/EKG's, [facility] records)? Report findings @ -No old charts were reviewed Differential Diagnosis (chest pain, altered mental status, abdominal pain women, abdominal pain men, vaginal bleeding, weakness, fever, dyspnea, syncope, headache, dizziness, GI bleed, back pain, seizure, CVA, palpatations, mental health, musculoskeletal)? @ PEG tube malfunction EKG interpreted by me (3pts min.). @ -As above X-rays interpreted by me (1pt min.). @ KUB with contrast shows no extravasation. CT interpreted by me (1pt min.). @ -None done U/S interpreted by me (1pt. min.). @ -None done What testing was considered but not performed or refused? (CT, X-rays, U/S, labs)? Why? @ -None What meds were considered but not given or refused? Why? @ -None Did you discuss the management of the patient with other professionals (professionals i.e. , PA, DOCUMENT PHOTOGRAPHER, lab, RT, psych nurse, social media coordinator, rfid manager, teacher, infantry officer, embedded case manager)? Give summary @ -No Was smoking cessation discussed for >3mins.? @ -No Was critical care preformed (if so, how long)? @ -No Were there social determinants of health that impacted care today? How? (Homelessness, low income, unemployed, alcoholism, drug addiction, transpo rtation, low edu. Level, literacy, decrease access to med. care, care home, rehab)? @ -No Was there de-escalation of care discussed even if they declined (Discuss DNR or withdrawal of care, Hospice)? DNR status @ -No What co-morbidities impacted this encounter? (DM, HTN, Smoking, COPD, CAD, Cancer, CVA, ARF, Chemo, Hep., AIDS, mental health diagnosis, sleep apnea, morbid obesity)? @ -[Tube feed dependent Was patient admitted / discharged? Hospital course, mention meds given and route, prescriptions, significant lab abnormalities, going to OR and other pertinent info. @ Patient's tube replaced, confirmed with pyelogram. Stable for discharge. Undiagnosed new problem with uncertain prognosis? @ -No Drug Therapy requiring intensive monitoring for toxicity (Heparin, Nitro, Insulin, Cardizem)? @ -No Were any procedures done? @ -[Yes, PEG tube replacement Diagnosis/symptom? @ -[Malfunctioning PEG tube Acute, or Chronic, or Acute on Chronic? @ -acute Uncomplicated (without systemic symptoms) or Complicated (systemic symptoms)? @ -default Side effects of treatment? @ -No Exacerbation, Progression, or Severe Exacerbation? @ -No Poses a threat to life or bodily function? How? (Chest pain, [place], [place], pneumonia, PE, COPD, DKA, ARF, appy, cholecystitis, CVA, Diverticulitis, Homicidal, Suicidal, threat to staff... and all critical care pts) @ -No Disposition Clinical Impression: Feeding tube blocked Disposition: HOME SELF-CARE Condition: Fair Instructions (If sedation given, give patient instructions): How to Use and Care for Your PEG Tube (ED) Is patient prescribed a controlled substance at d/c from ED?: No Referrals: None,Stated [REFERRING] - 1-2 days Time of Disposition: 19:45
--- NOTE | 2023-08-22 20:07 | XR ---
EXAMINATION TYPE: XR KUB DATE OF EXAM: 08/22/2023 Comparison: 05/01/2023 and 05/15/2023 Clinical History: 63-year-old male PEG tube insertion, pegogram Findings: The technologist administered 40 mL Isovue-[id number] through the PEG tube. There is satisfactory opacificat ion of the gastric lumen and passage of contrast down the duodenal sweep. Gassy abdomen. Scattered mi ld to moderate stool. No dilated small bowel loops. Impression: Satisfactory opacification of the gastric lumen when injecting through the PEG tube.
[2023-08-22 21:09] VITALS: BP 174/90; PULSE 80; RESP 20; TEMP 98.8
== END 2023-08-22 21:15 | disposition home or self-care (01) ==
LOC: EC 18:45
DX: K94.23 Gastrostomy malfunction (principal); I10 Essential (primary) hypertension; K21.9 Gastro-esophageal reflux disease without esophagitis; F32.A Depression, unspecified; Z79.899 Other long term (current) drug therapy; Z88.0 Allergy status to penicillin
CPT/HCPCS: 74018; 43762; 99283; Q9967

== ENCOUNTER 2023-09-08 08:02 | Emergency (ER) | payer MEDICARE, OTHER ==
[2023-09-08] MEDS ORDERED: ACETAMINOPHEN IV (For NPO) 1,000 MG in EMPTY BAG 1 BAG IVPB STA (08:13)
[2023-09-08] MEDS ORDERED: SODIUM CHLORIDE 0.9% 1,000 ML IV STA (08:13)
--- NOTE | 2023-09-08 08:14 | ED ---
Fever HPI - General Chief Complaint: Fever Stated Complaint: weakness,fever Time Seen by Provider: 09/08/23 08:07 Source: EMS, RN notes reviewed Mode of arrival: EMS Limitations: altered mental status - History of Present Illness Initial Comments: This is a 63-year-old male who presents to the emergency department for a fever and increased weakness. Patient resides at [facility] and he is bedbound and nonverbal at baseline secondary to neurological problems. This morning, the staff found him to be febrile and less interactive than normal, prompting them to call EMS. He has oxygen ordered as needed, and when EMS arrived he reportedly had an oxygen saturation of 90%, and they subsequently started him on a nasal cannula at 2 L. They also noted him to be febrile with a temperature 101.4F, however he did not get any antipyretic medication. [facility] does also note that Covid has been spreading throughout their facility. MD Complaint: fever - Related Data Home Medications Medication Instructions Recorded Confirmed Ipratropium-Albuterol Nebulize 3 ml INHALATION RT-Q4H 12/16/19 07/14/23 [Duoneb 0.5 mg-3 mg/3 ml Soln] Aspirin 81 mg PEG/G-TUBE DAILY@0900 11/27/20 07/14/23 Acetaminophen Tab [Tylenol] 650 mg PEG/G-TUBE Q4H PRN 06/13/21 07/14/23 Metoprolol Tartrate [Lopressor] 50 mg PEG/G-TUBE BID@0900,2100 06/13/21 07/14/23 carBAMazepine [carBAMazepine Oral 100 mg PEG/G-TUBE 07/02/21 07/14/23 Susp] TID@0600,1400,2200 Amantadine Hcl Solution 50mg/5ml 100 mg PEG/G-TUBE DAILY@0900 12/22/21 07/14/23 Lactulose 20 gm PEG/G-TUBE TID@0900,1700,2100 01/03/22 07/14/23 Scopolamine [Scopolamine 1 MG/72 2 patch TRANSDERM Q72H 01/03/22 07/14/23 HR patch] oxyBUTYnin chloride 5 mg PEG/G-TUBE TID@0600,1400,2200 12/19/22 07/14/23 Atorvastatin [Lipitor] 40 mg PEG/G-TUBE DAILY 07/14/23 07/14/23 Famotidine [Pepcid] 20 mg PEG/G-TUBE DAILY 07/14/23 07/14/23 Previous Rx's Medication Instructions Recorded Baclofen [Lioresal] 5 mg PEG/G-TUBE TID@0600,1400,2200 05/03/22 tab Lacosamide [Vimpat] 150 mg PEG/G-TUBE BID@0900,2100 #6 07/20/23 tab Nystatin 100,000 Unit/ml Susp 500,000 unit PO QID 7 Days ml 07/20/23 [Mycostatin Oral Susp] Cefpodoxime Proxetil [Vantin] 200 mg PEG/G-TUBE Q12HR 14 Days 09/08/23 #28 tab Allergies Allergy/AdvReac Type Severity Reaction Status Date / Time meropenem [From Merrem] Allergy Rash/Hives Verified 08/22/23 19:04 ceftolozane [From Zerbaxa] AdvReac Rapid Verified 08/22/23 19:04 Heart Rate tazobactam [From Zerbaxa] AdvReac Rapid Verified 08/22/23 19:04 Heart Rate Review of Systems ROS Statement: Those systems with pertinent positive or pertinent negative responses have been documented in the HPI. ROS Other: All systems not noted in ROS Statement are negative. Past Medical History Past Medical History: Deep Vein Thrombosis (DVT), GERD/Reflux, Hypertension, Musculoskeletal Disorder, Neurologic Disorder, Pneumonia, Seizure Disorder, Skin Disorder Additional Past Medical History / Comment(s): Pt diagnosed with MS at the age of 39 yrs, seizure/pneumonia/UTI with sepsis/respirtory failure/vented, cognitive impairment, sister states when he is feeling well he could speak a few words/nod head appropriately/give thumbs up/roll eyes but when ill is nonverbal, pt has dysphagia/NPO with peg tube, contractures, last seizure 07/2020, trigeminal neuralgia, dysarthria/anarthria/neurogenic bladder with IDC-UTIs/sepsis, multiple pneumonias, recent seizure-last one 07/03/20, incontinent of stool, pt has had decubitus ulcer coccyx-sister unsure of skin condition at this time, past anemia r/t heparin/epistaxiis which involved nasal packing/transfusions, DVT bilateral arms, hypoxia, oxygen at 2L/NC, L femoral head fracture History of Any Multi-Drug Resistant Organisms: ESBL, MRSA, Other MDRO Date of last positivie culture/infection: 03/09/21-MRSA; 11/23/19 ESBL-E.coli MDRO Source:: Abdomen-Peg site MRSA; Urine -ESBL Past Surgical History: Tonsillectomy Additional Past Surgical History / Comment(s): Gastrostomy, peg tube, I&D coccyx decubitius, bronchoscopy, bilateral lasik eye surgery. Past Anesthesia/Blood Transfusion Reactions: No Reported Reaction Additional Past Anesthesia/Blood Transfusion Reaction / Comment(s): Pt has received blood in past without reaction. Past Psychological History: Depression Smoking Status: Never smoker Past Alcohol Use History: None Reported Past Drug Use History: None Reported - Past Family History Father Family Medical History: Myocardial Infarction ([place]) Mother Family Medical History: Hypertension, Myocardial Infarction ([place]) Additional Family Medical History / Comment(s): Mother of a [place] at the age of 73 yrs. General Exam Limitations: no limitations General appearance: alert, in no apparent distress Head exam: Present: atraumatic, normocephalic, normal inspection Respiratory exam: Present: normal lung sounds bilaterally. Absent: respiratory distress, wheezes, rales, rhonchi, stridor Cardiovascular Exam: Present: normal rhythm, tachycardia GI/Abdominal exam: Present: soft Neurological exam: Present: alert Skin exam: Present: warm, dry, intact Course Vital Signs 09/08/23 09/08/23 09/08/23 08:03 08:30 09:00 Temperature 100.8 F H Pulse Rate 107 H 92 95 Respiratory 28 H Rate Blood Pressure 142/86 142/86 137/85 O2 Sat by Pulse 97 95 98 Oximetry 09/08/23 09/08/23 09/08/23 09:30 10:00 10:12 Temperature 99.0 F Pulse Rate 92 90 Respiratory 18 Rate Blood Pressure 139/82 160/85 O2 Sat by Pulse 100 100 Oximetry 09/08/23 09/08/23 11:00 12:00 Temperature 98.8 F Pulse Rate 88 90 Respiratory 18 18 Rate Blood Pressure 151/89 157/67 O2 Sat by Pulse 100 100 Oximetry Medical Decision Making - Medical Decision Making This is a 63-year-old male who presents to the emergency department for a fever. Was pt. sent in by a medical professional or institution? @ -No Did you speak to anyone other than the patient for history? @ -EMS provided all of the information. Did you review nursing and triage notes? @ -Yes, and I agree, it is accurate with regards to the patient's symptoms. Were old charts reviewed? @ -No Differential Diagnosis? @ -Differential Fever: Pneumonia, viral URI, endocarditis, myocarditis, pericarditis, otitis, sinusitis, peritonsillar Abscess, retropharyngeal Abscess, epiglottitis, peritonitis, appendicitis, Maris cystitis, diverticulitis, hepatitis, colitis, UTI, PID, TOA, pyelonephritis, prostatitis, epididymitis, meningitis, encephalitis, pulmonary embolism, CVA, thyroid storm, pancreatitis, adrenal crisis, cavernous sinus thrombosis, this is not meant to be an all-inclusive list. EKG interpreted by me (3pts min.)? @ -EKG interpreted by me demonstrating the following: Sinus tachycardia. Ventricular rate 109 beats per minute, IN interval 151 ms, QRS duration 98 ms, QTC 399 ms. X-rays interpreted by me (1pt min.)? @ -Chest x-ray obtained. My interpretation identifies a retrocardiac opacity. CT interpreted by me (1pt min.)? @ -Not obtained U/S interpreted by me (1pt. min.)? @ -Not obtained What testing was considered but not performed? (CT, X-rays, U/S, labs)? Why? @ -None What meds were considered but not given? Why? @ -None Did you discuss the management of the patient with other professionals? @ -No Did you reconcile home meds? @ -No Was smoking cessation discussed for >3mins.? @ -No Was critical care preformed (if so, how long)? @ -No Were there social determinants of health that impacted care today? How? (Homelessness, low income, unemployed, alcoholism, drug addiction, transportat ion, low edu. Level, literacy, decrease access to med. care, [facility], rehab)? @ -No Was there de-escalation of care discussed even if they declined? (Discuss DNR or withdrawal of care, Hospice)? @ -No What co-morbidities impacted this encounter? (DM, HTN, Smoking, COPD, CAD, Cancer, CVA, Hep., AIDS, mental health diagnosis, sleep apnea, morbid obesity)? @ -Neurologic disorder Was patient admitted / discharged? @ -Discharged. Patient was tachycardic and febrile arrival with a temperature of 100.8F. He was treated with IV fluids and Ofirmev due to his inability to tolerate oral intake. The fever and tachycardia resolved following those medications. Lab work obtained revealing leukocytosis was otherwise fairly unremarkable. Hypernatremia is similar with prior values. COVID, influenza, and RSV testing were negative. Chest x-ray demonstrated a retrocardiac opacity that was said to be stable from prior imaging. Urinalysis is questionably positive for infection. Urine was sent for culture and nursing staff changed his Stein catheter. He was given a dose of ceftriaxone in the emergency department. Prescription for cefpodoxime provided with dosing instructions reviewed for additional management of possible UTI. Patient discharged back to [facility] in stable condition. Advised nursing staff to alternate with ibuprofen and Tylenol as needed for any additional fevers. Undiagnosed new problem with uncertain prognosis? @ -None Drug Therapy requiring intensive monitoring for toxicity (Heparin, Nitro, Insulin, Cardizem)? @ -None Were any procedures done? @ -None Diagnosis/symptom? @ -UTI, fever Acute, or Chronic, or Acute on Chronic? @ -Acute Uncomplicated (without systemic symptoms) or Complicated (systemic symptoms)? @ -Uncomplicated Side effects of treatment? @ -None Exacerbation, Progression, or Severe Exacerbation] @ -Not applicable Poses a threat to life or bodily function? @ -Unlikely This case was discussed in detail with the attending ED physician, Dr. Panchal. Presentation, findings, and treatment plan discussed in detail as well. - Lab Data Result diagrams: 09/08/23 08:28 09/08/23 08:28 Lab Results 09/08/23 09/08/23 09/08/23 Range/Units 08:28 08:28 08:28 WBC 18.1 H (3.8-10.6) k/uL RBC 5.45 (4.30-5.90) m/uL Hgb 13.6 (13.0-17.5) gm/dL Hct 44.1 (39.0-53.0) % MCV 80.9 (80.0-100.0) fL MCH 25.0 (25.0-35.0) pg MCHC 30.8 L (31.0-37.0) g/dL RDW 17.6 H (11.5-15.5) % Plt Count 244 (150-450) k/uL MPV 8.0 Neutrophils % 86 % Lymphocytes % 6 % Monocytes % 6 % Eosinophils % 1 % Basophils % 0 % Neutrophils # 15.5 H (1.3-7.7) k/uL Lymphocytes # 1.0 (1.0-4.8) k/uL Monocytes # 1.0 (0-1.0) k/uL Eosinophils # 0.1 (0-0.7) k/uL Basophils # 0.0 (0-0.2) k/uL Hypochromasia Marked Anisocytosis Slight Microcytosis Slight Sodium (137-145) mmol/L Potassium (3.5-5.1) mmol/L Chloride (98-107) mmol/L Carbon Dioxide (22-30) mmol/L Anion Gap mmol/L BUN (9-20) mg/dL Creatinine (0.66-1.25) mg/dL Est GFR (CKD-EPI)AfAm (>60 ml/min/1.73 sqM) Est GFR (CKD-EPI)NonAf (>60 ml/min/1.73 sqM) Glucose (74-99) mg/dL Plasma Lactic Acid Taurus (0.7-2.0) mmol/L Calcium (8.4-10.2) mg/dL Total Bilirubin (0.2-1.3) mg/dL AST (17-59) U/L ALT (4-49) U/L Alkaline Phosphatase (38-126) U/L Total Protein (6.3-8.2) g/dL Albumin (3.5-5.0) g/dL Urine Color Yellow Urine Appearance Clear (Clear) Urine pH 5.0 (5.0-8.0) Ur Specific [place] 1.010 (1.001-1.035) Urine Protein 3+ H (Negative) Urine Glucose (UA) Negative (Negative) Urine Ketones Trace H (Negative) Urine Blood Moderate H (Negative) Urine Nitrite Negative (Negative) Urine Bilirubin Negative (Negative) Urine Urobilinogen <2.0 (<2.0) mg/dL Ur Leukocyte Esterase Trace H (Negative) Urine RBC 100 H (0-5) /hpf Urine WBC 36 H (0-5) /hpf Urine Bacteria Occasional H (None) /hpf Urine Mucus Few H (None) /hpf Influenza Type A (PCR) Not Detected (Not Detectd) Influenza Type B (PCR) Not Detected (Not Detectd) RSV (PCR) Not Detected (Not Detectd) SARS-CoV-2 (PCR) Not Detected (Not Detectd) 09/08/23 09/08/23 Range/Units 08:28 08:28 WBC (3.8-10.6) k/uL RBC (4.30-5.90) m/uL Hgb (13.0-17.5) gm/dL Hct (39.0-53.0) % MCV (80.0-100.0) fL MCH (25.0-35.0) pg MCHC (31.0-37.0) g/dL RDW (11.5-15.5) % Plt Count (150-450) k/uL MPV Neutrophils % % Lymphocytes % % Monocytes % % Eosinophils % % Basophils % % Neutrophils # (1.3-7.7) k/uL Lymphocytes # (1.0-4.8) k/uL Monocytes # (0-1.0) k/uL Eosinophils # (0-0.7) k/uL Basophils # (0-0.2) k/uL Hypochromasia Anisocytosis Microcytosis Sodium 154 H (137-145) mmol/L Potassium 3.6 (3.5-5.1) mmol/L Chloride 118 H (98-107) mmol/L Carbon Dioxide 22 (22-30) mmol/L Anion Gap 14 mmol/L BUN 24 H (9-20) mg/dL Creatinine 0.84 (0.66-1.25) mg/dL Est GFR (CKD-EPI)AfAm >90 (>60 ml/min/1.73 sqM) Est GFR (CKD-EPI)NonAf >90 (>60 ml/min/1.73 sqM) Glucose 137 H (74-99) mg/dL Plasma Lactic Acid Taurus 1.2 (0.7-2.0) mmol/L Calcium 8.7 (8.4-10.2) mg/dL Total Bilirubin 0.4 (0.2-1.3) mg/dL AST 20 (17-59) U/L ALT 22 (4-49) U/L Alkaline Phosphatase 105 (38-126) U/L Total Protein 6.9 (6.3-8.2) g/dL Albumin 3.6 (3.5-5.0) g/dL Urine Color Urine Appearance (Clear) Urine pH (5.0-8.0) Ur Specific [place] (1.001-1.035) Urine Protein (Negative) Urine Glucose (UA) (Negative) Urine Ketones (Negative) Urine Blood (Negative) Urine Nitrite (Negative) Urine Bilirubin (Negative) Urine Urobilinogen (<2.0) mg/dL Ur Leukocyte Esterase (Negative) Urine RBC (0-5) /hpf Urine WBC (0-5) /hpf Urine Bacteria (None) /hpf Urine Mucus (None) /hpf Influenza Type A (PCR) (Not Detectd) Influenza Type B (PCR) (Not Detectd) RSV (PCR) (Not Detectd) SARS-CoV-2 (PCR) (Not Detectd) - Radiology Data Radiology results: report reviewed, image reviewed Disposition Clinical Impression: UTI (urinary tract infection), Fever Disposition: HOME SELF-CARE Instructions (If sedation given, give patient instructions): Urinary Tract Infection in Men (ED), Fever in Adults (ED) Additional Instructions: Return to the emergency department with any new, worsening, or concerning symptoms. He will take the antibiotic as prescribed for 10 days. Alternate with ibuprofen and Tylenol as needed for any additional fevers. Follow up with his primary care provider in 1-2 days. Prescriptions: Cefpodoxime Proxetil [Vantin] 200 mg PEG/G-TUBE Q12HR 14 Days #28 tab Is patient prescribed a controlled substance at d/c from ED?: No Referrals: Shantanu Shelley MD [Primary Care Provider] - 1-2 days
[2023-09-08 08:53] LABS: Appearance,Urine Clear (Clear); Color,Urine Yellow
[2023-09-08 08:54] LABS: Bilirubin,Urine Negative (Negative); Blood,Urine Moderate (Negative); Glucose,Urine (UA) Negative (Negative); Ketones,Urine Trace (Negative); Leukocyte Esterase,Urine Trace (Negative); Nitrite,Urine Negative (Negative); Protein,Urine 3+ (Negative); Urobilinogen,Urine <2.0 mg/dL (<2.0)
[2023-09-08 08:59] LABS: Bacteria,Urine Occasional /hpf; Mucus,Urine Few /hpf; RBC,Urine 100 /hpf (0-5); WBC,Urine 36 /hpf (0-5)
[2023-09-08 09:08] LABS: Anisocytosis Slight; Basophils % (A) 0 %; Eosinophils # (A) 0.1 k/uL (0-0.7); Eosinophils % (A) 1 %; HCT 44.1 % (39.0-53.0); HGB 13.6 gm/dL (13.0-17.5); Hypochromasia Marked; Lymphocytes % (A) 6 %; MCHC 30.8 g/dL (31.0-37.0); MCV 80.9 fL (80.0-100.0); Microcytosis Slight; Monocytes % (A) 6 %; Neutrophils # (A) 15.5 k/uL (1.3-7.7); Neutrophils % (A) 86 %; Platelet Count 244 k/uL (150-450); RBC 5.45 m/uL (4.30-5.90); RDW 17.6 % (11.5-15.5); WBC 18.1 k/uL (3.8-10.6)
--- NOTE | 2023-09-08 09:13 | XR ---
EXAMINATION TYPE: XR chest 1V portable DATE OF EXAM: 09/08/2023 Comparison: 07/18/2023 Clinical History: 63 year-old male shortness of breath, difficulty breathing Findings: Heart upper limits of normal in size. Aorta within normal limits. Mild interstitial prominence is unc hanged, possibly chronic. Some mild patchy retrocardiac opacity is unchanged. Old healed left-sided r ib fracture deformities. Some strandy right basilar atelectasis is unchanged. Impression: Some patchy retrocardiac opacity is similar.
[2023-09-08 09:19] LABS: ALT 22 U/L (4-49); AST 20 U/L (17-59); African American GFR (CKD) >90 (>60 ml/min/1.73 sqM); Albumin 3.6 g/dL (3.5-5.0); Alkaline Phosphatase 105 U/L (38-126); Anion Gap 14 mmol/L; Blood Urea Nitrogen 24 mg/dL (9-20); Calcium 8.7 mg/dL (8.4-10.2); Carbon Dioxide 22 mmol/L (22-30); Chloride 118 mmol/L (98-107); Glucose 137 mg/dL (74-99); Non-African American GFR(CKD) >90 (>60 ml/min/1.73 sqM); Potassium 3.6 mmol/L (3.5-5.1); Sodium 154 mmol/L (137-145); Total Bilirubin 0.4 mg/dL (0.2-1.3); Total Protein 6.9 g/dL (6.3-8.2)
[2023-09-08] MEDS: cefTRIAXone IN SWFI 1,000 MG/10 ML SYRINGE IVP SCH (10:40)
[2023-09-08 12:49] VITALS: BP 157/67; PULSE 90; RESP 18; TEMP 98.8
== END 2023-09-08 13:15 | disposition home or self-care (01) ==
LOC: EC 08:02
DX: N39.0 Urinary tract infection, site not specified (principal); I10 Essential (primary) hypertension; K21.9 Gastro-esophageal reflux disease without esophagitis; F32.A Depression, unspecified; Z79.82 Long term (current) use of aspirin; Z79.899 Other long term (current) drug therapy; Z20.822 Contact with and (suspected) exposure to COVID-19
CPT/HCPCS: 36415; 80053; 83605; 85025; 81001; 87040; 87086; 87636; 71045; 99284; 96365; 96375; 96361; J0696; J0131

== ENCOUNTER 2023-09-12 16:09 | Inpatient (IN) | payer MEDICARE, OTHER ==
[2023-09-12] MEDS ORDERED: SODIUM CHLORIDE 0.9% 1,000 ML IV STA (16:51)
--- NOTE | 2023-09-12 16:59 | ED ---
Altered Mental Status HPI - General Stated Complaint: AMS Time Seen by Provider: 09/12/23 16:16 Source: RN notes reviewed, old records reviewed, Caregiver Mode of arrival: EMS Limitations: altered mental status, physical limitation - History of Present Illness Initial Comments: This is a 63-year-old male by history positive for altered mental status abnormal lab values patient is completely unable to provide history here in the emergency room, patient is not communicative MD Complaint: altered mental status -: unknown Severity: severe Associated Symptoms: denies other symptoms Treatments Prior to Arrival: IV fluid - Related Data Home Medications Medication Instructions Recorded Confirmed Ipratropium-Albuterol Nebulize 3 ml INHALATION RT-Q4H 12/16/19 09/12/23 [Duoneb 0.5 mg-3 mg/3 ml Soln] Aspirin 81 mg PEG/G-TUBE DAILY@0900 11/27/20 09/12/23 Acetaminophen Tab [Tylenol] 650 mg PEG/G-TUBE Q4H PRN 06/13/21 09/12/23 Metoprolol Tartrate [Lopressor] 50 mg PEG/G-TUBE BID@0900,2100 06/13/21 09/12/23 carBAMazepine [carBAMazepine Oral 100 mg PEG/G-TUBE 07/02/21 09/12/23 Susp] TID@0600,1400,2200 Amantadine Hcl Solution 50mg/5ml 100 mg PEG/G-TUBE DAILY@0900 12/22/21 09/12/23 Lactulose 20 gm PEG/G-TUBE TID@0900,1700,2100 01/03/22 09/12/23 Scopolamine [Scopolamine 1 MG/72 2 patch TRANSDERM Q72H 01/03/22 09/12/23 HR patch] oxyBUTYnin chloride 5 mg PEG/G-TUBE TID@0600,1400,2200 12/19/22 09/12/23 Atorvastatin [Lipitor] 40 mg PEG/G-TUBE HS 07/14/23 09/12/23 Famotidine [Pepcid] 20 mg PEG/G-TUBE DAILY 07/14/23 09/12/23 Lacosamide [Vimpat Oral Soln] 150 mg PO BID@0900,2000 09/12/23 09/12/23 Previous Rx's Medication Instructions Recorded Baclofen [Lioresal] 5 mg PEG/G-TUBE TID@0600,1400,2200 05/03/22 tab Cefpodoxime Proxetil [Vantin] 200 mg PEG/G-TUBE Q12HR 14 Days 09/08/23 #28 tab Allergies Allergy/AdvReac Type Severity Reaction Status Date / Time meropenem [From Merrem] Allergy Rash/Hives Verified 09/12/23 16:43 ceftolozane [From Zerbaxa] AdvReac Rapid Verified 09/12/23 16:43 Heart Rate tazobactam [From Zerbaxa] AdvReac Rapid Verified 09/12/23 16:43 Heart Rate Review of Systems ROS Statement: Those systems with pertinent positive or pertinent negative responses have been documented in the HPI. ROS Other: All systems not noted in ROS Statement are negative. Past Medical History Past Medical History: Deep Vein Thrombosis (DVT), GERD/Reflux, Hypertension, Musculoskeletal Disorder, Neurologic Disorder, Pneumonia, Seizure Disorder, Skin Disorder Additional Past Medical History / Comment(s): Pt diagnosed with MS at the age of 39 yrs, seizure/pneumonia/UTI with sepsis/respirtory failure/vented, cognitive impairment, sister states when he is feeling well he could speak a few words/nod head appropriately/give thumbs up/roll eyes but when ill is nonverbal, pt has dysphagia/NPO with peg tube, contractures, last seizure 07/2020, trigeminal neuralgia, dysarthria/anarthria/neurogenic bladder with IDC-UTIs/sepsis, multiple pneumonias, recent seizure-last one 07/03/20, incontinent of stool, pt has had decubitus ulcer coccyx-sister unsure of skin condition at this time, past anemia r/t heparin/epistaxiis which involved nasal packing/transfusions, DVT bilateral arms, hypoxia, oxygen at 2L/NC, L femoral head fracture History of Any Multi-Drug Resistant Organisms: ESBL, MRSA, Other MDRO Date of last positivie culture/infection: 03/09/21-MRSA; 11/23/19 ESBL-E.coli MDRO Source:: Abdomen-Peg site MRSA; Urine -ESBL Past Surgical History: Tonsillectomy Additional Past Surgical History / Comment(s): Gastrostomy, peg tube, I&D coccyx decubitius, bronchoscopy, bilateral lasik eye surgery. Past Anesthesia/Blood Transfusion Reactions: No Reported Reaction Additional Past Anesthesia/Blood Transfusion Reaction / Comment(s): Pt has received blood in past without reaction. Past Psychological History: Depression Smoking Status: Never smoker Past Alcohol Use History: None Reported Past Drug Use History: None Reported - Past Family History Father Family Medical History: Myocardial Infarction (NH) Mother Family Medical History: Hypertension, Myocardial Infarction (NH) Additional Family Medical History / Comment(s): Mother of a NH at the age of 73 yrs. General Exam General appearance: alert, in no apparent distress Head exam: Present: atraumatic, normocephalic, normal inspection Eye exam: Present: normal appearance, PERRL, EOMI. Absent: scleral icterus, conjunctival injection, periorbital swelling ENT exam: Present: normal exam, mucous membranes moist Neck exam: Present: normal inspection. Absent: tenderness, meningismus, lymphadenopathy Respiratory exam: Present: normal lung sounds bilaterally. Absent: respiratory distress, wheezes, rales, rhonchi, stridor Cardiovascular Exam: Present: regular rate, normal rhythm, normal heart sounds. Absent: systolic murmur, diastolic murmur, rubs, gallop, clicks GI/Abdominal exam: Present: soft, normal bowel sounds. Absent: distended, tenderness, guarding, rebound, rigid Extremities exam: Present: normal inspection, full ROM, normal capillary refill. Absent: tenderness, pedal edema, joint swelling, calf tenderness Back exam: Present: normal inspection Neurological exam: Present: alert, oriented X3, CN II-XII intact Psychiatric exam: Present: normal affect, normal mood Skin exam: Present: warm, dry, intact, normal color. Absent: rash Course Vital Signs 09/12/23 09/12/23 09/12/23 16:12 17:30 18:00 Temperature 99.4 F Pulse Rate 75 71 70 Respiratory 20 18 18 Rate Blood Pressure 140/84 140/84 146/75 O2 Sat by Pulse 95 Oximetry 09/12/23 09/12/23 09/12/23 18:30 19:00 19:30 Temperature Pulse Rate 72 70 68 Respiratory 20 14 22 Rate Blood Pressure 153/89 136/107 136/72 O2 Sat by Pulse Oximetry 09/12/23 09/12/23 09/12/23 20:00 20:30 20:54 Temperature Pulse Rate 70 Respiratory 12 24 Rate Blood Pressure 126/69 125/79 O2 Sat by Pulse 93 L Oximetry 09/12/23 09/12/23 09/12/23 21:19 21:30 22:00 Temperature Pulse Rate 74 71 Respiratory 27 H 23 Rate Blood Pressure 144/80 143/72 O2 Sat by Pulse 100 100 100 Oximetry 09/12/23 09/12/23 09/13/23 22:53 23:40 00:00 Temperature Pulse Rate 87 77 72 Respiratory 22 20 23 Rate Blood Pressure 144/59 133/69 133/69 O2 Sat by Pulse 95 98 98 Oximetry 09/13/23 09/13/23 09/13/23 00:30 01:00 01:30 Temperature Pulse Rate 76 76 Respiratory 19 22 12 Rate Blood Pressure 112/55 119/64 108/60 O2 Sat by Pulse 95 Oximetry 09/13/23 09/13/23 09/13/23 02:00 03:00 04:00 Temperature Pulse Rate 90 78 78 Respiratory 17 21 20 Rate Blood Pressure 132/73 144/116 124/97 O2 Sat by Pulse 95 96 Oximetry 09/13/23 09/13/23 09/13/23 05:00 06:00 06:04 Temperature 98.9 F Pulse Rate 76 85 Respiratory 15 28 H Rate Blood Pressure 115/66 146/79 O2 Sat by Pulse 98 97 Oximetry 09/13/23 09/13/23 07:00 11:51 Temperature Pulse Rate 80 96 Respiratory 12 18 Rate Blood Pressure 124/85 120/73 O2 Sat by Pulse 96 96 Oximetry - Reevaluation(s) Reevaluation #1: 09/12/23 21:48 Medical record is reviewed Reevaluation #2: 09/12/23 21:48 No change in symptoms here in the ER Reevaluation #3: 09/12/23 21:48 Patient informed results questions answered Reevaluation #4: 09/12/23 21:48 Was pt. sent in by a medical professional or institution (, PA, MEDICAL STAFF CREDENTIALING COORDINATOR, urgent care, hospital, or skilled nursing...) When possible be specific @ -no Did you speak to anyone other than the patient for history (EMS, parent, family, police, friend...)? What history was obtained from this source @ -no Did you review nursing and triage notes (agree or disagree)? Why? @ -agree Are old charts reviewed (outside hosp., previous admission, EMS record, old EKG, old radiological studies, urgent care reports/EKG's, skilled nursing records)? Report findings @ -yes Differential Diagnosis (chest pain, altered mental status, abdominal pain women, abdominal pain men, vaginal bleeding, weakness, fever, dyspnea, syncope, headache, dizziness, GI bleed, back pain, seizure, CVA, palpatations, mental health, musculoskeletal)? @ -prior EKG interpreted by me (3pts min.). @ -yes X-rays interpreted by me (1pt min.). @ -no CT interpreted by me (1pt min.). @ -no U/S interpreted by me (1pt. min.). @ -no What testing was considered but not performed or refused? (CT, X-rays, U/S, labs)? Why? @ -none What meds were considered but not given or refused? Why? @ -none Did you discuss the management of the patient with other professionals (professionals i.e. , PA, MEDICAL STAFF CREDENTIALING COORDINATOR, lab, RT, psych nurse, social services manager, sandblaster glass, te acher, chief investment officer, rifle case repairer)? Give summary @ -no Was smoking cessation discussed for >3mins.? @ -no Was critical care preformed (if so, how long)? @ -no Were there social determinants of health that impacted care today? How? (Homelessness, low income, unemployed, alcoholism, drug addiction, transportation, low edu. Level, literacy, decrease access to med. care, fpc, rehab)? @ -none Was there de-escalation of care discussed even if they declined (Discuss DNR or withdrawal of care, Hospice)? DNR status @ -no What co-morbidities impacted this encounter? (DM, HTN, Smoking, COPD, CAD, Cancer, CVA, ARF, Chemo, Hep., AIDS, mental health diagnosis, sleep apnea, morbid obesity)? @ -none Was patient admitted / discharged? Hospital course, mention meds given and route, prescriptions, significant lab abnormalities, going to OR and other pertinent info. @ - 83-year-old male will be admitted for altered status with hypernatremia. Patient will be admitted for significant develop debility, altered mental status, need for IV hydration secondary to dehydration and supportive care Admitted Undiagnosed new problem with uncertain prognosis? @ -no Drug Therapy requiring intensive monitoring for toxicity (Heparin, Nitro, Insulin, Cardizem)? @ -no Were any procedures done? @ -no Diagnosis/symptom? @ -Debility, altered mental status, hypernatremia, dehydration Acute, or Chronic, or Acute on Chronic? @ -Acute Uncomplicated (without systemic symptoms) or Complicated (systemic symptoms)? @ -Complicated Side effects of treatment? @ -no Exacerbation, Progression, or Severe Exacerbation? @ -exacerbation Poses a threat to life or bodily function? How? (Chest pain, [place], NH, pneumonia, PE, COPD, DKA, ARF, appy, cholecystitis, CVA, Diverticulitis, Homicidal, Suicidal, threat to staff... and all critical care pts) @ -yes Reevaluation #5: 09/12/23 21:48 Differential Altered Mental Status: Hypoglycemia, DKA, hypercapnia, ETOH, overdose, CO poisoning, trauma, myxedema coma, HTN encephalopathy, infection, encephalitis, psychosis, intercranial hemorrhage, hepatic encephalopathy, meningitis, CVA, this is not meant to be an all-inclusive list - Consultations Consultation #1: Spoke with Herbie sharp for admission Medical Decision Making - Medical Decision Making 83-year-old male will be admitted for altered status with hypernatremia. Patient will be admitted for significant develop debility, altered mental status, need for IV hydration secondary to dehydration and supportive care - Lab Data Result diagrams: 09/17/23 11:37 09/19/23 10:09 Lab Results 09/12/23 09/12/23 09/12/23 Range/Units 17:01 17:01 17:01 WBC 5.6 (3.8-10.6) k/uL RBC 5.24 (4.30-5.90) m/uL Hgb 13.3 (13.0-17.5) gm/dL Hct 43.2 (39.0-53.0) % MCV 82.5 (80.0-100.0) fL MCH 25.4 (25.0-35.0) pg MCHC 30.7 L (31.0-37.0) g/dL RDW 17.2 H (11.5-15.5) % Plt Count 248 (150-450) k/uL MPV 9.4 Neutrophils % 60 % Neutrophils % (Manual) % Lymphocytes % 21 % Lymphocytes % (Manual) % Monocytes % 7 % Monocytes % (Manual) % Eosinophils % 9 % Eosinophils % (Manual) % Basophils % 1 % Neutrophils # 3.4 (1.3-7.7) k/uL Neutrophils # (Manual) (1.3-7.7) k/uL Lymphocytes # 1.2 (1.0-4.8) k/uL Lymphocytes # (Manual) (1.0-4.8) k/uL Monocytes # 0.4 (0-1.0) k/uL Monocytes # (Manual) (0-1.0) k/uL Eosinophils # 0.5 (0-0.7) k/uL Eosinophils # (Manual) (0-0.7) k/uL Basophils # 0.0 (0-0.2) k/uL Nucleated RBCs (0-0) /100 WBC Manual Slide Review Hypochromasia Marked Anisocytosis Slight PT 10.8 (10.0-12.5) sec INR 1.0 (<1.2) APTT 24.5 (22.0-30.0) sec Sodium (137-145) mmol/L Potassium (3.5-5.1) mmol/L Chloride (98-107) mmol/L Carbon Dioxide (22-30) mmol/L Anion Gap mmol/L BUN (9-20) mg/dL Creatinine (0.66-1.25) mg/dL Est GFR (CKD-EPI)AfAm (>60 ml/min/1.73 sqM) Est GFR (CKD-EPI)NonAf (>60 ml/min/1.73 sqM) Glucose (74-99) mg/dL POC Glucose (mg/dL) (70-110) mg/dL POC Glu Retread Operator ID Plasma Lactic Acid [place] (0.7-2.0) mmol/L Calcium (8.4-10.2) mg/dL Phosphorus (2.5-4.5) mg/dL Magnesium (1.6-2.3) mg/dL Total Bilirubin (0.2-1.3) mg/dL AST (17-59) U/L ALT (4-49) U/L Alkaline Phosphatase (38-126) U/L Troponin I (0.000-0.034) ng/mL Total Protein (6.3-8.2) g/dL Albumin (3.5-5.0) g/dL Urine Color Light Yellow Urine Appearance Clear (Clear) Urine pH 6.5 (5.0-8.0) Ur Specific [place] 1.020 (1.001-1.035) Urine Protein Trace H (Negative) Urine Glucose (UA) Negative (Negative) Urine Ketones Trace H (Negative) Urine Blood Negative (Negative) Urine Nitrite Negative (Negative) Urine Bilirubin Negative (Negative) Urine Urobilinogen <2.0 (<2.0) mg/dL Ur Leukocyte Esterase Negative (Negative) Urine RBC 2 (0-5) /hpf Urine WBC 3 (0-5) /hpf Ur Squamous Epith Cells <1 (0-4) /hpf Urine Mucus Occasional H (None) /hpf Carbamazepine ug/mL 09/12/23 09/12/23 09/12/23 Range/Units 17:01 17:01 17:01 WBC (3.8-10.6) k/uL RBC (4.30-5.90) m/uL Hgb (13.0-17.5) gm/dL Hct (39.0-53.0) % MCV (80.0-100.0) fL MCH (25.0-35.0) pg MCHC (31.0-37.0) g/dL RDW (11.5-15.5) % Plt Count (150-450) k/uL MPV Neutrophils % % Neutrophils % (Manual) % Lymphocytes % % Lymphocytes % (Manual) % Monocytes % % Monocytes % (Manual) % Eosinophils % % Eosinophils % (Manual) % Basophils % % Neutrophils # (1.3-7.7) k/uL Neutrophils # (Manual) (1.3-7.7) k/uL Lymphocytes # (1.0-4.8) k/uL Lymphocytes # (Manual) (1.0-4.8) k/uL Monocytes # (0-1.0) k/uL Monocytes # (Manual) (0-1.0) k/uL Eosinophils # (0-0.7) k/uL Eosinophils # (Manual) (0-0.7) k/uL Basophils # (0-0.2) k/uL Nucleated RBCs (0-0) /100 WBC Manual Slide Review Hypochromasia Anisocytosis PT (10.0-12.5) sec INR (<1.2) APTT (22.0-30.0) sec Sodium 155 H (137-145) mmol/L Potassium 4.2 (3.5-5.1) mmol/L Chloride 117 H (98-107) mmol/L Carbon Dioxide 26 (22-30) mmol/L Anion Gap 12 mmol/L BUN 23 H (9-20) mg/dL Creatinine 0.73 (0.66-1.25) mg/dL Est GFR (CKD-EPI)AfAm >90 (>60 ml/min/1.73 sqM) Est GFR (CKD-EPI)NonAf >90 (>60 ml/min/1.73 sqM) Glucose 85 (74-99) mg/dL POC Glucose (mg/dL) (70-110) mg/dL POC Glu Retread Operator ID Plasma Lactic Acid [place] 1.0 (0.7-2.0) mmol/L Calcium 8.8 (8.4-10.2) mg/dL Phosphorus 3.7 (2.5-4.5) mg/dL Magnesium 2.5 H (1.6-2.3) mg/dL Total Bilirubin 0.3 (0.2-1.3) mg/dL AST 26 (17-59) U/L ALT 25 (4-49) U/L Alkaline Phosphatase 87 (38-126) U/L Troponin I 0.036 H* (0.000-0.034) ng/mL Total Protein 7.1 (6.3-8.2) g/dL Albumin 3.7 (3.5-5.0) g/dL Urine Color Urine Appearance (Clear) Urine pH (5.0-8.0) Ur Specific [place] (1.001-1.035) Urine Protein (Negative) Urine Glucose (UA) (Negative) Urine Ketones (Negative) Urine Blood (Negative) Urine Nitrite (Negative) Urine Bilirubin (Negative) Urine Urobilinogen (<2.0) mg/dL Ur Leukocyte Esterase (Negative) Urine RBC (0-5) /hpf Urine WBC (0-5) /hpf Ur Squamous Epith Cells (0-4) /hpf Urine Mucus (None) /hpf Carbamazepine ug/mL 09/12/23 09/12/23 09/13/23 Range/Units 20:25 20:25 13:55 WBC 6.0 (3.8-10.6) k/uL RBC 5.33 (4.30-5.90) m/uL Hgb 13.3 (13.0-17.5) gm/dL Hct 44.6 (39.0-53.0) % MCV 83.6 (80.0-100.0) fL MCH 24.9 L (25.0-35.0) pg MCHC 29.7 L (31.0-37.0) g/dL RDW 16.9 H (11.5-15.5) % Plt Count 257 (150-450) k/uL MPV 9.4 Neutrophils % % Neutrophils % (Manual) 58 % Lymphocytes % % Lymphocytes % (Manual) 29 % Monocytes % % Monocytes % (Manual) 7 % Eosinophils % % Eosinophils % (Manual) 6 % Basophils % % Neutrophils # (1.3-7.7) k/uL Neutrophils # (Manual) 3.48 (1.3-7.7) k/uL Lymphocytes # (1.0-4.8) k/uL Lymphocytes # (Manual) 1.74 (1.0-4.8) k/uL Monocytes # (0-1.0) k/uL Monocytes # (Manual) 0.42 (0-1.0) k/uL Eosinophils # (0-0.7) k/uL Eosinophils # (Manual) 0.36 (0-0.7) k/uL Basophils # (0-0.2) k/uL Nucleated RBCs 0 (0-0) /100 WBC Manual Slide Review Performed Hypochromasia Marked Anisocytosis Slight PT (10.0-12.5) sec INR (<1.2) APTT (22.0-30.0) sec Sodium 156 H 154 H (137-145) mmol/L Potassium 3.7 4.8 (3.5-5.1) mmol/L Chloride 118 H 116 H (98-107) mmol/L Carbon Dioxide 24 27 (22-30) mmol/L Anion Gap 11 mmol/L BUN 20 18 (9-20) mg/dL Creatinine 0.72 0.71 (0.66-1.25) mg/dL Est GFR (CKD-EPI)AfAm >90 >90 (>60 ml/min/1.73 sqM) Est GFR (CKD-EPI)NonAf >90 >90 (>60 ml/min/1.73 sqM) Glucose 87 88 (74-99) mg/dL POC Glucose (mg/dL) (70-110) mg/dL POC Glu Retread Operator ID Plasma Lactic Acid [place] (0.7-2.0) mmol/L Calcium 8.5 8.9 (8.4-10.2) mg/dL Phosphorus 3.8 (2.5-4.5) mg/dL Magnesium 2.3 2.4 H (1.6-2.3) mg/dL Total Bilirubin 0.3 (0.2-1.3) mg/dL AST 23 (17-59) U/L ALT 26 (4-49) U/L Alkaline Phosphatase 85 (38-126) U/L Troponin I (0.000-0.034) ng/mL Total Protein 7.1 (6.3-8.2) g/dL Albumin 3.6 (3.5-5.0) g/dL Urine Color Urine Appearance (Clear) Urine pH (5.0-8.0) Ur Specific [place] (1.001-1.035) Urine Protein (Negative) Urine Glucose (UA) (Negative) Urine Ketones (Negative) Urine Blood (Negative) Urine Nitrite (Negative) Urine Bilirubin (Negative) Urine Urobilinogen (<2.0) mg/dL Ur Leukocyte Esterase (Negative) Urine RBC (0-5) /hpf Urine WBC (0-5) /hpf Ur Squamous Epith Cells (0-4) /hpf Urine Mucus (None) /hpf Carbamazepine ug/mL 09/13/23 09/13/23 09/13/23 Range/Units 16:49 18:51 20:28 WBC (3.8-10.6) k/uL RBC (4.30-5.90) m/uL Hgb (13.0-17.5) gm/dL Hct (39.0-53.0) % MCV (80.0-100.0) fL MCH (25.0-35.0) pg MCHC (31.0-37.0) g/dL RDW (11.5-15.5) % Plt Count (150-450) k/uL MPV Neutrophils % % Neutrophils % (Manual) % Lymphocytes % % Lymphocytes % (Manual) % Monocytes % % Monocytes % (Manual) % Eosinophils % % Eosinophils % (Manual) % Basophils % % Neutrophils # (1.3-7.7) k/uL Neutrophils # (Manual) (1.3-7.7) k/uL Lymphocytes # (1.0-4.8) k/uL Lymphocytes # (Manual) (1.0-4.8) k/uL Monocytes # (0-1.0) k/uL Monocytes # (Manual) (0-1.0) k/uL Eosinophils # (0-0.7) k/uL Eosinophils # (Manual) (0-0.7) k/uL Basophils # (0-0.2) k/uL Nucleated RBCs (0-0) /100 WBC Manual Slide Review Hypochromasia Anisocytosis PT (10.0-12.5) sec INR (<1.2) APTT (22.0-30.0) sec Sodium 151 H (137-145) mmol/L Potassium (3.5-5.1) mmol/L Chloride (98-107) mmol/L Carbon Dioxide (22-30) mmol/L Anion Gap mmol/L BUN (9-20) mg/dL Creatinine (0.66-1.25) mg/dL Est GFR (CKD-EPI)AfAm (>60 ml/min/1.73 sqM) Est GFR (CKD-EPI)NonAf (>60 ml/min/1.73 sqM) Glucose (74-99) mg/dL POC Glucose (mg/dL) 79 103 (70-110) mg/dL POC Glu Retread Operator ID GeraldDorys petty Sandra Plasma Lactic Acid [place] (0.7-2.0) mmol/L Calcium (8.4-10.2) mg/dL Phosphorus (2.5-4.5) mg/dL Magnesium (1.6-2.3) mg/dL Total Bilirubin (0.2-1.3) mg/dL AST (17-59) U/L ALT (4-49) U/L Alkaline Phosphatase (38-126) U/L Troponin I (0.000-0.034) ng/mL Total Protein (6.3-8.2) g/dL Albumin (3.5-5.0) g/dL Urine Color Urine Appearance (Clear) Urine pH (5.0-8.0) Ur Specific [place] (1.001-1.035) Urine Protein (Negative) Urine Glucose (UA) (Negative) Urine Ketones (Negative) Urine Blood (Negative) Urine Nitrite (Negative) Urine Bilirubin (Negative) Urine Urobilinogen (<2.0) mg/dL Ur Leukocyte Esterase (Negative) Urine RBC (0-5) /hpf Urine WBC (0-5) /hpf Ur Squamous Epith Cells (0-4) /hpf Urine Mucus (None) /hpf Carbamazepine ug/mL 09/13/23 09/14/23 09/14/23 Range/Units 23:57 05:44 07:00 WBC 5.9 (3.8-10.6) k/uL RBC 4.79 (4.30-5.90) m/uL Hgb 12.1 L (13.0-17.5) gm/dL Hct 40.0 (39.0-53.0) % MCV 83.5 (80.0-100.0) fL MCH 25.2 (25.0-35.0) pg MCHC 30.2 L (31.0-37.0) g/dL RDW 17.1 H (11.5-15.5) % Plt Count 227 (150-450) k/uL MPV 9.1 Neutrophils % 70 % Neutrophils % (Manual) % Lymphocytes % 15 % Lymphocytes % (Manual) % Monocytes % 7 % Monocytes % (Manual) % Eosinophils % 6 % Eosinophils % (Manual) % Basophils % 1 % Neutrophils # 4.1 (1.3-7.7) k/uL Neutrophils # (Manual) (1.3-7.7) k/uL Lymphocytes # 0.9 L (1.0-4.8) k/uL Lymphocytes # (Manual) (1.0-4.8) k/uL Monocytes # 0.4 (0-1.0) k/uL Monocytes # (Manual) (0-1.0) k/uL Eosinophils # 0.3 (0-0.7) k/uL Eosinophils # (Manual) (0-0.7) k/uL Basophils # 0.0 (0-0.2) k/uL Nucleated RBCs (0-0) /100 WBC Manual Slide Review Hypochromasia Marked Anisocytosis Slight PT (10.0-12.5) sec INR (<1.2) APTT (22.0-30.0) sec Sodium (137-145) mmol/L Potassium (3.5-5.1) mmol/L Chloride (98-107) mmol/L Carbon Dioxide (22-30) mmol/L Anion Gap mmol/L BUN (9-20) mg/dL Creatinine (0.66-1.25) mg/dL Est GFR (CKD-EPI)AfAm (>60 ml/min/1.73 sqM) Est GFR (CKD-EPI)NonAf (>60 ml/min/1.73 sqM) Glucose (74-99) mg/dL POC Glucose (mg/dL) 109 142 H (70-110) mg/dL POC Glu Retread Operator Sarah Perkins Jasmine Plasma Lactic Acid [place] (0.7-2.0) mmol/L Calcium (8.4-10.2) mg/dL Phosphorus (2.5-4.5) mg/dL Magnesium (1.6-2.3) mg/dL Total Bilirubin (0.2-1.3) mg/dL AST (17-59) U/L ALT (4-49) U/L Alkaline Phosphatase (38-126) U/L Troponin I (0.000-0.034) ng/mL Total Protein (6.3-8.2) g/dL Albumin (3.5-5.0) g/dL Urine Color Urine Appearance (Clear) Urine pH (5.0-8.0) Ur Specific [place] (1.001-1.035) Urine Protein (Negative) Urine Glucose (UA) (Negative) Urine Ketones (Negative) Urine Blood (Negative) Urine Nitrite (Negative) Urine Bilirubin (Negative) Urine Urobilinogen (<2.0) mg/dL Ur Leukocyte Esterase (Negative) Urine RBC (0-5) /hpf Urine WBC (0-5) /hpf Ur Squamous Epith Cells (0-4) /hpf Urine Mucus (None) /hpf Carbamazepine ug/mL 09/14/23 09/14/23 Range/Units 07:06 07:06 WBC (3.8-10.6) k/uL RBC (4.30-5.90) m/uL Hgb (13.0-17.5) gm/dL Hct (39.0-53.0) % MCV (80.0-100.0) fL MCH (25.0-35.0) pg MCHC (31.0-37.0) g/dL RDW (11.5-15.5) % Plt Count (150-450) k/uL MPV Neutrophils % % Neutrophils % (Manual) % Lymphocytes % % Lymphocytes % (Manual) % Monocytes % % Monocytes % (Manual) % Eosinophils % % Eosinophils % (Manual) % Basophils % % Neutrophils # (1.3-7.7) k/uL Neutrophils # (Manual) (1.3-7.7) k/uL Lymphocytes # (1.0-4.8) k/uL Lymphocytes # (Manual) (1.0-4.8) k/uL Monocytes # (0-1.0) k/uL Monocytes # (Manual) (0-1.0) k/uL Eosinophils # (0-0.7) k/uL Eosinophils # (Manual) (0-0.7) k/uL Basophils # (0-0.2) k/uL Nucleated RBCs (0-0) /100 WBC Manual Slide Review Hypochromasia Anisocytosis PT (10.0-12.5) sec INR (<1.2) APTT (22.0-30.0) sec Sodium 143 (137-145) mmol/L Potassium 3.7 (3.5-5.1) mmol/L Chloride 110 H (98-107) mmol/L Carbon Dioxide 24 (22-30) mmol/L Anion Gap 9 mmol/L BUN 17 (9-20) mg/dL Creatinine 0.70 (0.66-1.25) mg/dL Est GFR (CKD-EPI)AfAm >90 (>60 ml/min/1.73 sqM) Est GFR (CKD-EPI)NonAf >90 (>60 ml/min/1.73 sqM) Glucose 118 H (74-99) mg/dL POC Glucose (mg/dL) (70-110) mg/dL POC Glu Retread Operator ID Plasma Lactic Acid [place] (0.7-2.0) mmol/L Calcium 8.2 L (8.4-10.2) mg/dL Phosphorus (2.5-4.5) mg/dL Magnesium 2.1 (1.6-2.3) mg/dL Total Bilirubin 0.3 (0.2-1.3) mg/dL AST 25 (17-59) U/L ALT 20 (4-49) U/L Alkaline Phosphatase 83 (38-126) U/L Troponin I (0.000-0.034) ng/mL Total Protein 6.1 L (6.3-8.2) g/dL Albumin 3.0 L (3.5-5.0) g/dL Urine Color Urine Appearance (Clear) Urine pH (5.0-8.0) Ur Specific [place] (1.001-1.035) Urine Protein (Negative) Urine Glucose (UA) (Negative) Urine Ketones (Negative) Urine Blood (Negative) Urine Nitrite (Negative) Urine Bilirubin (Negative) Urine Urobilinogen (<2.0) mg/dL Ur Leukocyte Esterase (Negative) Urine RBC (0-5) /hpf Urine WBC (0-5) /hpf Ur Squamous Epith Cells (0-4) /hpf Urine Mucus (None) /hpf Carbamazepine <3.0 ug/mL - EKG Data -: EKG Interpreted by Me (EKG is 70 MI 148 QRS 89 QTc 404) Disposition Clinical Impression: Delirium due to general medical condition, Altered mental status, Hypoxia Disposition: ADMITTED IP TO THIS HOSP Condition: Good Is patient prescribed a controlled substance at d/c from ED?: No Time of Disposition: 20:15
[2023-09-12 18:12] LABS: Anisocytosis Slight; Basophils % (A) 1 %; Eosinophils # (A) 0.5 k/uL (0-0.7); Eosinophils % (A) 9 %; HCT 43.2 % (39.0-53.0); HGB 13.3 gm/dL (13.0-17.5); Hypochromasia Marked; Lymphocytes # (A) 1.2 k/uL (1.0-4.8); Lymphocytes % (A) 21 %; MCH 25.4 pg (25.0-35.0); MCHC 30.7 g/dL (31.0-37.0); MCV 82.5 fL (80.0-100.0); Mean Platelet Volume 9.4; Monocytes # (A) 0.4 k/uL (0-1.0); Monocytes % (A) 7 %; Neutrophils # (A) 3.4 k/uL (1.3-7.7); Neutrophils % (A) 60 %; Platelet Count 248 k/uL (150-450); RBC 5.24 m/uL (4.30-5.90); RDW 17.2 % (11.5-15.5); WBC 5.6 k/uL (3.8-10.6)
[2023-09-12 18:17] LABS: ALT 25 U/L (4-49); AST 26 U/L (17-59); African American GFR (CKD) >90 (>60 ml/min/1.73 sqM); Albumin 3.7 g/dL (3.5-5.0); Alkaline Phosphatase 87 U/L (38-126); Anion Gap 12 mmol/L; Blood Urea Nitrogen 23 mg/dL (9-20); Calcium 8.8 mg/dL (8.4-10.2); Carbon Dioxide 26 mmol/L (22-30); Chloride 117 mmol/L (98-107); Glucose 85 mg/dL (74-99); Magnesium 2.5 mg/dL (1.6-2.3); Non-African American GFR(CKD) >90 (>60 ml/min/1.73 sqM); Phosphorus 3.7 mg/dL (2.5-4.5); Potassium 4.2 mmol/L (3.5-5.1); Sodium 155 mmol/L (137-145); Total Bilirubin 0.3 mg/dL (0.2-1.3); Total Protein 7.1 g/dL (6.3-8.2)
[2023-09-12 18:36] LABS: Mucus,Urine Occasional /hpf; RBC,Urine 2 /hpf (0-5); Squamous Epithelial Cell,Urine <1 /hpf (0-4); WBC,Urine 3 /hpf (0-5)
[2023-09-12 18:42] LABS: Appearance,Urine Clear (Clear); Color,Urine Light Yellow; Glucose,Urine (UA) Negative (Negative); Ketones,Urine Trace (Negative); PH, Urine 6.5 (5.0-8.0); Protein,Urine Trace (Negative)
[2023-09-12 18:43] LABS: Bilirubin,Urine Negative (Negative); Blood,Urine Negative (Negative); Leukocyte Esterase,Urine Negative (Negative); Nitrite,Urine Negative (Negative); Urobilinogen,Urine <2.0 mg/dL (<2.0)
[2023-09-12 18:49] LABS: Partial Thromboplastin Time 24.5 sec (22.0-30.0); Prothrombin Time 10.8 sec (10.0-12.5)
[2023-09-12] MEDS ORDERED: NALOXONE 0.4 MG/ML 1 ML VIAL IV PRN (20:14)
[2023-09-12] MEDS ORDERED: ONDANSETRON 4 MG/2 ML VIAL IVP PRN (20:14)
[2023-09-12] MEDS: SODIUM CHLORIDE 0.9% 1,000 ML IV SCH (20:33)
[2023-09-12 21:32] LABS: Anisocytosis Slight; HCT 44.6 % (39.0-53.0); HGB 13.3 gm/dL (13.0-17.5); Hypochromasia Marked; MCH 24.9 pg (25.0-35.0); MCHC 29.7 g/dL (31.0-37.0); MCV 83.6 fL (80.0-100.0); Mean Platelet Volume 9.4; Platelet Count 257 k/uL (150-450); RBC 5.33 m/uL (4.30-5.90); RDW 16.9 % (11.5-15.5)
[2023-09-12 22:22] LABS: Eosinophils # (M) 0.36 k/uL (0-0.7); Lymphocytes # (M) 1.74 k/uL (1.0-4.8); Monocytes # (M) 0.42 k/uL (0-1.0); Neutrophils # (M) 3.48 k/uL (1.3-7.7); Neutrophils % (M) 58 %; Nucleated Red Blood Cells 0 /100 WBC (0-0); Total Cells Counted 100
[2023-09-13] MEDS: MORPHINE SULFATE 4 MG/ML SYRINGE IV PRN ×2 (00:48→05:59)
[2023-09-13 03:33] LABS: Albumin 3.6 g/dL (3.5-5.0); Chloride 118 mmol/L (98-107); Glucose 87 mg/dL (74-99); Potassium 3.7 mmol/L (3.5-5.1); Sodium 156 mmol/L (137-145); Total Protein 7.1 g/dL (6.3-8.2)
[2023-09-13 03:35] LABS: ALT 26 U/L (4-49); AST 23 U/L (17-59); African American GFR (CKD) >90 (>60 ml/min/1.73 sqM); Alkaline Phosphatase 85 U/L (38-126); Blood Urea Nitrogen 20 mg/dL (9-20); Calcium 8.5 mg/dL (8.4-10.2); Carbon Dioxide 24 mmol/L (22-30); Magnesium 2.3 mg/dL (1.6-2.3); Non-African American GFR(CKD) >90 (>60 ml/min/1.73 sqM); Phosphorus 3.8 mg/dL (2.5-4.5); Total Bilirubin 0.3 mg/dL (0.2-1.3)
[2023-09-13] MEDS ORDERED: NALOXONE 0.4 MG/ML 1 ML VIAL IV PRN (09:56)
[2023-09-13] MEDS: SODIUM CHLORIDE 0.9% 1,000 ML IV SCH (11:48)
[2023-09-13] MEDS ORDERED: DEXTROSE 5% IN WATER 1,000 ML IV SCH (12:00)
--- NOTE | 2023-09-13 12:01 | P.NPCON ---
History of Present Illness - Reason for Consult hypernatremia - History of Present Illness Reason for consultation: Hypernatremia History of present illness: Patient is a 63-year-old male seen in renal consultation for hypernatremia. Patient came to the hospital due to altered mental status. However per nurse it was determined that this is patient's baseline. Patient is long-term resident of an extended care facility. Patient has history of MS, seizures. Otherwise patient is nonverbal. He has history of dysphagia and has a PEG tube. He also has a chronic Stein catheter due to history of neurogenic bladder. Hemodynamically stable. Patient's sodium level was 155 on admission and on repeat was 156 as of 09/12/2023 at 8:25 PM. He is currently receiving normal saline. Vital signs are stable. General: Resting in bed. HEENT: Head exam is unremarkable. On nasal cannula. LUNGS: No audible rhonchi or wheezes. HEART: Rate and Rhythm are regular. ABDOMEN: No distention. PEG tube noted. EXTREMITITES: No edema. Past Medical History Past Medical History: Deep Vein Thrombosis (DVT), GERD/Reflux, Hypertension, Musculoskeletal Disorder, Neurologic Disorder, Pneumonia, Seizure Disorder, Skin Disorder Additional Past Medical History / Comment(s): Pt diagnosed with MS at the age of 39 yrs, seizure/pneumonia/UTI with sepsis/respirtory failure/vented, cognitive impairment, sister states when he is feeling well he could speak a few words/nod head appropriately/give thumbs up/roll eyes but when ill is nonverbal, pt has dysphagia/NPO with peg tube, contractures, last seizure 07/2020, trigeminal neuralgia, dysarthria/anarthria/neurogenic bladder with IDC-UTIs/sepsis, multiple pneumonias, recent seizure-last one 07/03/20, incontinent of stool, pt has had decubitus ulcer coccyx-sister unsure of skin condition at this time, pa st anemia r/t heparin/epistaxiis which involved nasal packing/transfusions, DVT bilateral arms, hypoxia, oxygen at 2L/NC, L femoral head fracture History of Any Multi-Drug Resistant Organisms: ESBL, MRSA, Other MDRO Date of last positivie culture/infection: 03/09/21-MRSA; 11/23/19 ESBL-E.coli MDRO Source:: Abdomen-Peg site MRSA; Urine -ESBL Past Surgical History: Tonsillectomy Additional Past Surgical History / Comment(s): Gastrostomy, peg tube, I&D coccyx decubitius, bronchoscopy, bilateral lasik eye surgery. Past Anesthesia/Blood Transfusion Reactions: No Reported Reaction Additional Past Anesthesia/Blood Transfusion Reaction / Comment(s): Pt has received blood in past without reaction. Past Psychological History: Depression Smoking Status: Never smoker Past Alcohol Use History: None Reported Past Drug Use History: None Reported - Past Family History Father Family Medical History: Myocardial Infarction ([place]) Mother Family Medical History: Hypertension, Myocardial Infarction ([place]) Additional Family Medical History / Comment(s): Mother of a [place] at the age of 73 yrs. Medications and Allergies Home Medications Medication Instructions Recorded Confirmed Type Ipratropium-Albuterol Nebulize 3 ml INHALATION RT-Q4H 12/16/19 09/12/23 History [Duoneb 0.5 mg-3 mg/3 ml Soln] Aspirin 81 mg PEG/G-TUBE DAILY@0900 11/27/20 09/12/23 History Acetaminophen Tab [Tylenol] 650 mg PEG/G-TUBE Q4H PRN 06/13/21 09/12/23 History Metoprolol Tartrate [Lopressor] 50 mg PEG/G-TUBE BID@0900,2100 06/13/21 09/12/23 History carBAMazepine [carBAMazepine Oral 100 mg PEG/G-TUBE 07/02/21 09/12/23 History Susp] TID@0600,1400,2200 Amantadine Hcl Solution 50mg/5ml 100 mg PEG/G-TUBE DAILY@0900 12/22/21 09/12/23 History Lactulose 20 gm PEG/G-TUBE TID@0900,1700,2100 01/03/22 09/12/23 History Scopolamine [Scopolamine 1 MG/72 2 patch TRANSDERM Q72H 01/03/22 09/12/23 History HR patch] Baclofen [Lioresal] 5 mg PEG/G-TUBE TID@0600,1400,2200 05/03/22 09/12/23 Rx tab oxyBUTYnin chloride 5 mg PEG/G-TUBE TID@0600,1400,2200 12/19/22 09/12/23 History Atorvastatin [Lipitor] 40 mg PEG/G-TUBE HS 07/14/23 09/12/23 History Famotidine [Pepcid] 20 mg PEG/G-TUBE DAILY 07/14/23 09/12/23 History Cefpodoxime Proxetil [Vantin] 200 mg PEG/G-TUBE Q12HR 14 Days 09/08/23 09/12/23 Rx #28 tab Lacosamide [Vimpat Oral Soln] 150 mg PO BID@09,199909/12/23 09/12/23 History Allergies Allergy/AdvReac Type Severity Reaction Status Date / Time meropenem [From Merrem] Allergy Rash/Hives Verified 09/12/23 16:43 ceftolozane [From Zerbaxa] AdvReac Rapid Verified 09/12/23 16:43 Heart Rate tazobactam [From Zerbaxa] AdvReac Rapid Verified 09/12/23 16:43 Heart Rate Physical Exam Vitals: Vital Signs Temp Pulse Resp BP Pulse Ox 09/13/23 11:51 96 18 120/73 96 09/13/23 07:00 80 12 124/85 96 09/13/23 06:04 98.9 F 09/13/23 06:00 85 28 H 146/79 97 09/13/23 05:00 76 15 115/66 98 09/13/23 04:00 78 20 124/97 96 09/13/23 03:00 78 21 144/116 95 09/13/23 02:00 90 17 132/73 09/13/23 01:30 12 108/60 09/13/23 01:00 76 22 119/64 09/13/23 00:30 76 19 112/55 95 09/13/23 00:00 72 23 133/69 98 09/12/23 23:40 77 20 133/69 98 09/12/23 22:53 87 22 144/59 95 09/12/23 22:00 71 23 143/72 100 09/12/23 21:30 74 27 H 144/80 100 09/12/23 21:19 100 09/12/23 20:54 93 L 09/12/23 20:30 24 125/79 09/12/23 20:00 70 12 126/69 09/12/23 19:30 68 22 136/72 09/12/23 19:00 70 14 136/107 09/12/23 18:30 72 20 153/89 09/12/23 18:00 70 18 146/75 09/12/23 17:30 71 18 140/84 09/12/23 16:12 99.4 F 75 20 140/84 95 Intake and Output 09/12/23 09/13/23 09/13/23 22:59 06:59 14:59 Other: Weight 83.915 kg Results - Lab Results Most recent lab results Calcium 8.5 mg/dL (8.4-10.2) 09/12/23 20:25 Phosphorus 3.8 mg/dL (2.5-4.5) 09/12/23 20:25 Magnesium 2.3 mg/dL (1.6-2.3) 09/12/23 20:25 09/12/23 20:25 09/12/23 20:25 Assessment and Plan Plan: Assessment: 1. Hypernatremia from lack of oral water intake. Sodium level CLVI as of 8:25 PM 09/12/2023. 2. History of MS. 3. History of neurogenic bladder with chronic Stein catheter. 4. Dysphagia. Has PEG tube. Plan: Stop normal saline. Start D5W at 100 mL an hour. Check BMP now and again at 5 PM. Feeding to be resumed via PEG tube. Thank you for the consultation. I will continue to follow the patient with you during his hospital stay.
[2023-09-13] MEDS: ASPIRIN 81 MG PEG/G-TUBE SCH (12:38)
[2023-09-13] MEDS: LACOSAMIDE 50 MG TABLET PEG/G-TUBE SCH ×2 (13:00→21:23)
[2023-09-13] MEDS: SCOPOLAMINE 1 MG/72 HR PATCH TRANSDERM SCH (13:02)
[2023-09-13 14:38] LABS: African American GFR (CKD) >90 (>60 ml/min/1.73 sqM); Anion Gap 11 mmol/L; Blood Urea Nitrogen 18 mg/dL (9-20); Calcium 8.9 mg/dL (8.4-10.2); Carbon Dioxide 27 mmol/L (22-30); Chloride 116 mmol/L (98-107); Glucose 88 mg/dL (74-99); Magnesium 2.4 mg/dL (1.6-2.3); Non-African American GFR(CKD) >90 (>60 ml/min/1.73 sqM); Sodium 154 mmol/L (137-145)
[2023-09-13 14:42] LABS: Potassium 4.8 mmol/L (3.5-5.1)
[2023-09-13] MEDS: oxyBUTYnin chloride 5 MG TAB PEG/G-TUBE SCH ×2 (14:49→21:23)
--- NOTE | 2023-09-13 14:57 | P.HPIM ---
History of Present Illness H&P Date: 09/13/23 History of present illness; Patient is a 63-year-old male with a past medical history of hypertension, multiple sclerosis, seizure disorder, dementia, chronic indwelling Stein catheter ,multiple urinary tract infection, dysphagia on PEG tube, neurogenic bladder. Patient is awake and alert x1 but nonverbal at baseline. Patient is a resident of a snf facility was brought to the ER for increasing lethargy. History is limited as patient is nonverbal at [facility]. According to EMR, nursing staff at the facility noted and patient was more lethargic. They didn't notice any fever or chills. Patient was not complaining of any pain in any part of the body. Because of increased lethargy, patient was sent to the ER Initial lab work done in the ER showed WBC 5.6, hemoglobin 13.3, platelet count 248, sodium 155, potassium 4.2, BUNs 23, creatinine 0.73, AST 26, AST 25, troponin 0.036 UA negative for infection EKG done in the ER showed normal sinus rhythm, no acute ST segment changes or T- wave inversions seen Patient admitted to internal medicine service REVIEW OF SYSTEMS: Review of systems cannot be obtained as patient is nonverbal at baseline PHYSICAL EXAMINATION: GENERAL: The patient is alert alert to self, patient is chronically ill-looking HEENT: Pupils are round and equally reacting to light. EOMI. No scleral icterus. No conjunctival pallor. Normocephalic, atraumatic. No pharyngeal erythema. No thyromegaly. CARDIOVASCULAR: S1 and S2 present. No murmurs, rubs, or gallops. PULMONARY: Chest is clear to auscultation, no wheezing or crackles. ABDOMEN: Soft, nontender, nondistended, normoactive bowel sounds. No palpable organomegaly. PEG tube seen MUSCULOSKELETAL: No joint swelling or deformity. EXTREMITIES: No cyanosis, clubbing, or pedal edema. NEUROLOGICAL:awake, alert x1. Nonverbal. Patient is bedbound. SKIN: No rashes. Assessment and plan Hypernatremia Acute metabolic encephalopathy Neurogenic bladder and history of multiple urinary tract infections Multiple sclerosis at age 39. Currently patient is bedbound Seizure disorder Cognitive impairment Hypertension GERD History of DVT Dysphagia/n.p.o. on PEG tube feeding History of trigeminal neuralgia History of ESBL E. coli urinary tract infections Depression Monitor vital signs Monitor CBC Monitor CMP fall precautions Follow-up precautions Continue IV fluids Resume tube feeding Any aspirin, Lipitor Continue carbamazepine, lacosamide, amantadine Consult neurology Consult nephrology Labs and medication were reviewed.. Continue same treatment. Continue with symptomatic treatment. Resume home medication. Monitor labs and vitals. DVT and GI prophylaxis. Further recommendations as per clinical course of the patient Dictation was produced using [employer] dictation software. please excuse any grammatical, word or spelling errors. Past Medical History Past Medical History: Deep Vein Thrombosis (DVT), GERD/Reflux, Hypertension, Musculoskeletal Disorder, Neurologic Disorder, Pneumonia, Seizure Disorder, Skin Disorder Additional Past Medical History / Comment(s): Pt diagnosed with MS at the age of 39 yrs, seizure/pneumonia/UTI with sepsis/respirtory failure/vented, cognitive impairment, sister states when he is feeling well he could speak a few words/nod head appropriately/give thumbs up/roll eyes but when ill is nonverbal, pt has dysphagia/NPO with peg tube, contractures, last seizure 07/2020, trigeminal neuralgia, dysarthria/anarthria/neurogenic bladder with IDC-UTIs/sepsis, mu ltiple pneumonias, recent seizure-last one 07/03/20, incontinent of stool, pt has had decubitus ulcer coccyx-sister unsure of skin condition at this time, past anemia r/t heparin/epistaxiis which involved nasal packing/transfusions, DVT bilateral arms, hypoxia, oxygen at 2L/NC, L femoral head fracture History of Any Multi-Drug Resistant Organisms: ESBL, MRSA, Other MDRO Date of last positivie culture/infection: 03/09/21-MRSA; 11/23/19 ESBL-E.coli MDRO Source:: Abdomen-Peg site MRSA; Urine -ESBL Past Surgical History: Tonsillectomy Additional Past Surgical History / Comment(s): Gastrostomy, peg tube, I&D coccyx decubitius, bronchoscopy, bilateral lasik eye surgery. Past Anesthesia/Blood Transfusion Reactions: No Reported Reaction Additional Past Anesthesia/Blood Transfusion Reaction / Comment(s): Pt has received blood in past without reaction. Past Psychological History: Depression Smoking Status: Never smoker Past Alcohol Use History: None Reported Past Drug Use History: None Reported - Past Family History Father Family Medical History: Myocardial Infarction ([place]) Mother Family Medical History: Hypertension, Myocardial Infarction ([place]) Additional Family Medical History / Comment(s): Mother of a [place] at the age of 73 yrs. Medications and Allergies Home Medications Medication Instructions Recorded Confirmed Type Ipratropium-Albuterol Nebulize 3 ml INHALATION RT-Q4H 12/16/19 09/12/23 History [Duoneb 0.5 mg-3 mg/3 ml Soln] Aspirin 81 mg PEG/G-TUBE DAILY@0900 11/27/20 09/12/23 History Acetaminophen Tab [Tylenol] 650 mg PEG/G-TUBE Q4H PRN 06/13/21 09/12/23 History Metoprolol Tartrate [Lopressor] 50 mg PEG/G-TUBE BID@0900,209906/13/21 09/12/23 History carBAMazepine [carBAMazepine Oral 100 mg PEG/G-TUBE 07/02/21 09/12/23 History Susp] TID@0600,1400,2200 Amantadine Hcl Solution 50mg/5ml 100 mg PEG/G-TUBE DAILY@0900 12/22/21 09/12/23 History Lactulose 20 gm PEG/G-TUBE TID@0900,1700,209901/03/22 09/12/23 History Scopolamine [Scopolamine 1 MG/72 2 patch TRANSDERM Q72H 01/03/22 09/12/23 History HR patch] Baclofen [Lioresal] 5 mg PEG/G-TUBE TID@0600,1400,2200 05/03/22 09/12/23 Rx tab oxyBUTYnin chloride 5 mg PEG/G-TUBE TID@0600,1400,2200 12/19/22 09/12/23 History Atorvastatin [Lipitor] 40 mg PEG/G-TUBE HS 07/14/23 09/12/23 History Famotidine [Pepcid] 20 mg PEG/G-TUBE DAILY 07/14/23 09/12/23 History Cefpodoxime Proxetil [Vantin] 200 mg PEG/G-TUBE Q12HR 14 Days 09/08/23 09/12/23 Rx #28 tab Lacosamide [Vimpat Oral Soln] 150 mg PO BID@0900,199909/12/23 09/12/23 History Allergies Allergy/AdvReac Type Severity Reaction Status Date / Time meropenem [From Merrem] Allergy Rash/Hives Verified 09/12/23 16:43 ceftolozane [From Zerbaxa] AdvReac Rapid Verified 09/12/23 16:43 Heart Rate tazobactam [From Zerbaxa] AdvReac Rapid Verified 09/12/23 16:43 Heart Rate Physical Exam Vitals: Vital Signs Temp Pulse Resp BP Pulse Ox 09/13/23 07:00 80 12 124/85 96 09/13/23 06:04 98.9 F 09/13/23 06:00 85 28 H 146/79 97 09/13/23 05:00 76 15 115/66 98 09/13/23 04:00 78 20 124/97 96 09/13/23 03:00 78 21 144/116 95 09/13/23 02:00 90 17 132/73 09/13/23 01:30 12 108/60 09/13/23 01:00 76 22 119/64 09/13/23 00:30 76 19 112/55 95 09/13/23 00:00 72 23 133/69 98 09/12/23 23:40 77 20 133/69 98 09/12/23 22:53 87 22 144/59 95 09/12/23 22:00 71 23 143/72 100 09/12/23 21:30 74 27 H 144/80 100 09/12/23 21:19 100 09/12/23 20:54 93 L 09/12/23 20:30 24 125/79 09/12/23 20:00 70 12 126/69 09/12/23 19:30 68 22 136/72 09/12/23 19:00 70 14 136/107 09/12/23 18:30 72 20 153/89 09/12/23 18:00 70 18 146/75 09/12/23 17:30 71 18 140/84 09/12/23 16:12 99.4 F 75 20 140/84 95 Intake and Output 09/12/23 09/13/23 09/13/23 22:59 06:59 14:59 Other: Weight 83.915 kg Results CBC & Chem 7: 09/12/23 20:25 09/13/23 13:55 Labs: Abnormal Lab Results - Last 24 Hours (Table) 1209/12/23 09/12/23 Range/Units 17:01 17:01 17:01 MCH (25.0-35.0) pg MCHC 30.7 L (31.0-37.0) g/dL RDW 17.2 H (11.5-15.5) % Sodium 155 H (137-145) mmol/L Chloride 117 H (98-107) mmol/L BUN 23 H (9-20) mg/dL Magnesium 2.5 H (1.6-2.3) mg/dL Troponin I (0.000-0.034) ng/mL Urine Protein Trace H (Negative) Urine Ketones Trace H (Negative) Urine Mucus Occasional H (None) /hpf 09/12/23 09/12/23 09/12/23 Range/Units 17:01 20:25 20:25 MCH 24.9 L (25.0-35.0) pg MCHC 29.7 L (31.0-37.0) g/dL RDW 16.9 H (11.5-15.5) % Sodium 156 H (137-145) mmol/L Chloride 118 H (98-107) mmol/L BUN (9-20) mg/dL Magnesium (1.6-2.3) mg/dL Troponin I 0.036 H* (0.000-0.034) ng/mL Urine Protein (Negative) Urine Ketones (Negative) Urine Mucus (None) /hpf
[2023-09-13] MEDS: IPRATROPIUM-ALBUTEROL 3 ML NEB INHALATION SCH ×2 (16:14→20:57)
[2023-09-13 16:51] LABS: Glucose,Whole Blood 79 mg/dL (70-110)
[2023-09-13] MEDS: LACTULOSE 20 GM/30 ML CUP PEG/G-TUBE SCH ×2 (17:29→21:24)
[2023-09-13 20:31] LABS: Glucose,Whole Blood 103 mg/dL (70-110)
[2023-09-13] MEDS: METOPROLOL TARTRATE 50 MG TAB PEG/G-TUBE SCH (21:23)
[2023-09-13] MEDS: BACLOFEN 10 MG TAB PEG/G-TUBE SCH (21:23)
[2023-09-13] MEDS: DEXTROSE 5% IN WATER 1,000 ML IV SCH (21:24)
[2023-09-13] MEDS: ATORVASTATIN 40 MG TAB PEG/G-TUBE SCH (21:24)
[2023-09-13] MEDS: CEFDINIR ORAL SUSP 1,500 MG/60 ML BOTTLE PEG/G-TUBE SCH (21:24)
[2023-09-14] LABS: Glucose,Whole Blood 109 mg/dL (70-110)
[2023-09-14] MEDS: IPRATROPIUM-ALBUTEROL 3 ML NEB INHALATION SCH ×6 (00:47→21:15)
[2023-09-14 05:45] LABS: Glucose,Whole Blood 142 mg/dL (70-110)
[2023-09-14] MEDS: BACLOFEN 10 MG TAB PEG/G-TUBE SCH ×3 (06:33→21:26)
[2023-09-14] MEDS: oxyBUTYnin chloride 5 MG TAB PEG/G-TUBE SCH ×3 (06:33→21:26)
[2023-09-14 07:54] LABS: ALT 20 U/L (4-49); AST 25 U/L (17-59); African American GFR (CKD) >90 (>60 ml/min/1.73 sqM); Alkaline Phosphatase 83 U/L (38-126); Anion Gap 9 mmol/L; Blood Urea Nitrogen 17 mg/dL (9-20); Calcium 8.2 mg/dL (8.4-10.2); Carbon Dioxide 24 mmol/L (22-30); Chloride 110 mmol/L (98-107); Glucose 118 mg/dL (74-99); Magnesium 2.1 mg/dL (1.6-2.3); Non-African American GFR(CKD) >90 (>60 ml/min/1.73 sqM); Potassium 3.7 mmol/L (3.5-5.1); Sodium 143 mmol/L (137-145); Total Bilirubin 0.3 mg/dL (0.2-1.3); Total Protein 6.1 g/dL (6.3-8.2)
[2023-09-14 08:00] LABS: Anisocytosis Slight; Basophils % (A) 1 %; Eosinophils # (A) 0.3 k/uL (0-0.7); Eosinophils % (A) 6 %; HGB 12.1 gm/dL (13.0-17.5); Hypochromasia Marked; Lymphocytes # (A) 0.9 k/uL (1.0-4.8); Lymphocytes % (A) 15 %; MCH 25.2 pg (25.0-35.0); MCHC 30.2 g/dL (31.0-37.0); MCV 83.5 fL (80.0-100.0); Mean Platelet Volume 9.1; Monocytes # (A) 0.4 k/uL (0-1.0); Monocytes % (A) 7 %; Neutrophils # (A) 4.1 k/uL (1.3-7.7); Neutrophils % (A) 70 %; Platelet Count 227 k/uL (150-450); RBC 4.79 m/uL (4.30-5.90); RDW 17.1 % (11.5-15.5); WBC 5.9 k/uL (3.8-10.6)
[2023-09-14] MEDS: LACTULOSE 20 GM/30 ML CUP PEG/G-TUBE SCH ×3 (10:01→21:27)
[2023-09-14] MEDS: FAMOTIDINE 20 MG TAB PEG/G-TUBE SCH (10:01)
[2023-09-14] MEDS: METOPROLOL TARTRATE 50 MG TAB PEG/G-TUBE SCH ×2 (10:01→21:27)
[2023-09-14] MEDS: ASPIRIN 81 MG PEG/G-TUBE SCH (10:01)
[2023-09-14] MEDS: LACOSAMIDE 50 MG TABLET PEG/G-TUBE SCH ×2 (10:01→21:27)
[2023-09-14] MEDS: CEFDINIR ORAL SUSP 1,500 MG/60 ML BOTTLE PEG/G-TUBE SCH ×2 (10:01→21:25)
--- NOTE | 2023-09-14 10:26 | P.PN ---
Subjective Patient is seen in follow-up for hyponatremia. Sodium level 143 this morning. Receiving tube feeds. Poor historian. Vital signs are stable. General: No acute distress. HEENT: Head exam is unremarkable. LUNGS: No audible rhonchi or wheezes. HEART: Rate and Rhythm are regular. ABDOMEN: No distention. EXTREMITITES: No edema. Objective - Vital Signs Vital signs: Vital Signs Temp 97.9 F 09/14/23 09:57 Pulse 91 09/14/23 09:59 Resp 21 09/14/23 09:57 BP 143/77 09/14/23 09:57 Pulse Ox 96 09/14/23 09:57 FiO2 Intake & Output 09/13/23 09/14/23 09/14/23 18:59 06:59 18:59 Output Total 475 Balance -475 Weight 83.915 kg Output: Urine 475 Other: Voiding Method Indwelling Catheter Indwelling Catheter - Labs CBC & Chem 7: 09/14/23 07:00 09/14/23 07:06 Labs: Abnormal Lab Results - Last 24 Hours (Table) 09/13/23 09/13/23 09/14/23 Range/Units 13:55 18:51 05:44 Hgb (13.0-17.5) gm/dL MCHC (31.0-37.0) g/dL RDW (11.5-15.5) % Lymphocytes # (1.0-4.8) k/uL Sodium 154 H 151 H (137-145) mmol/L Chloride 116 H (98-107) mmol/L Glucose (74-99) mg/dL POC Glucose (mg/dL) 142 H (70-110) mg/dL Calcium (8.4-10.2) mg/dL Magnesium 2.4 H (1.6-2.3) mg/dL Total Protein (6.3-8.2) g/dL Albumin (3.5-5.0) g/dL 09/14/23 09/14/23 Range/Units 07:00 07:06 Hgb 12.1 L (13.0-17.5) gm/dL MCHC 30.2 L (31.0-37.0) g/dL RDW 17.1 H (11.5-15.5) % Lymphocytes # 0.9 L (1.0-4.8) k/uL Sodium (137-145) mmol/L Chloride 110 H (98-107) mmol/L Glucose 118 H (74-99) mg/dL POC Glucose (mg/dL) (70-110) mg/dL Calcium 8.2 L (8.4-10.2) mg/dL Magnesium (1.6-2.3) mg/dL Total Protein 6.1 L (6.3-8.2) g/dL Albumin 3.0 L (3.5-5.0) g/dL Assessment and Plan Plan: Assessment: 1. Hypernatremia from lack of oral water intake. Improved. Sodium level 143 this morning. 2. History of MS. 3. History of neurogenic bladder with chronic Stein catheter. 4. Dysphagia. Has PEG tube. Plan: Change IV fluids to half-normal saline at 50 mL an hour. Receiving tube feeds. Repeat labs in the morning.
--- NOTE | 2023-09-14 11:23 | P.CNNES ---
History of Present Illness Consult date: 09/13/23 Requesting physician: Gio Paige Reason for Consult: Altered mental status History of Present Illness: Patient is a 63-year-old male with history of advanced MS, dementia, seizure disorder, came to the hospital by ambulance yesterday at 4:09 PM for altered mental status. Patient nonverbal, not able to provide any history. As per EMS flow sheet, when they arrived at [facility], patient with altered mental status, laying in bed eyes open in no apparent distress. Staff mentioned that patient has been more lethargic and has been difficult to arouse. Patient was sent out Sunday the same issue with no diagnosis. Patient is paraplegic and does not speak, only grunts and moans. Patient has dementia as well. Patient always on 2 L oxygen by nasal cannula, and his heart rate was 110. Patient wasn't in no acute distress. Blood pressure was 170/95, pulse rate 70, respiration 18 and saturation 99%. Patient's GCS was 10. Blood test shows normal CBC, PT/PTT, sodium 155 potassium 4.2, hepatic panel and renal functions are normal. Troponin negative. UA negative. EKG shows sinus rhythm. Patient has been seen by myself on 08/10/2020 for localization-related epilepsy, advanced multiple sclerosis with severe dementia, nonverbal state, bedridden. Patient at that time was taking Tegretol 200 mg every 12 hours, Vimpat 150 mg twice a day and Keppra 1000 mg twice a day. Patient had an abnormal EEG with continuous focal slowing with periodic lateralized epileptiform discharges involving the right hemispheric region on 07/22/2020. At that time he was on the ventilator and ICU. Review of Systems Staff, family members were present ROS unobtainable: due to mental status Past Medical History Past Medical History: Deep Vein Thrombosis (DVT), GERD/Reflux, Hypertension, Musculoskeletal Disorder, Neurologic Disorder, Pneumonia, Seizure Disorder, Skin Disorder Additional Past Medical History / Comment(s): Pt diagnosed with MS at the age of 39 yrs, seizure/pneumonia/UTI with sepsis/respirtory failure/vented, cognitive impairment, sister states when he is feeling well he could speak a few words/nod head appropriately/give thumbs up/roll eyes but when ill is nonverbal, pt has dysphagia/NPO with peg tube, contractures, last seizure 07/2020, trigeminal neuralgia, dysarthria/anarthria/neurogenic bladder with IDC-UTIs/sepsis, multiple pneumonias, recent seizure-last one 07/03/20, incontinent of stool, pt has had decubitus ulcer coccyx-sister unsure of skin condition at this time, past anemia r/t heparin/epistaxiis which involved nasal packing/transfusions, DVT bilateral arms, hypoxia, oxygen at 2L/NC, L femoral head fracture History of Any Multi-Drug Resistant Organisms: ESBL, MRSA, Other MDRO Date of last positivie culture/infection: 03/09/21-MRSA; 11/23/19 ESBL-E.coli MDRO Source:: Abdomen-Peg site MRSA; Urine -ESBL Past Surgical History: Tonsillectomy Additional Past Surgical History / Comment(s): Gastrostomy, peg tube, I&D coccyx decubitius, bronchoscopy, bilateral lasik eye surgery. Past Anesthesia/Blood Transfusion Reactions: No Reported Reaction Additional Past Anesthesia/Blood Transfusion Reaction / Comment(s): Pt has received blood in past without reaction. Past Psychological History: Depression Smoking Status: Never smoker Past Alcohol Use History: None Reported Past Drug Use History: None Reported - Past Family History Father Family Medical History: Myocardial Infarction (CA) Mother Family Medical History: Hypertension, Myocardial Infarction (CA) Additional Family Medical History / Comment(s): Mother of a CA at the age of 73 yrs. Medications and Allergies Home Medications Medication Instructions Recorded Confirmed Type Ipratropium-Albuterol Nebulize 3 ml INHALATION RT-Q4H 12/16/19 09/12/23 History [Duoneb 0.5 mg-3 mg/3 ml Soln] Aspirin 81 mg PEG/G-TUBE DAILY@0900 11/27/20 09/12/23 History Acetaminophen Tab [Tylenol] 650 mg PEG/G-TUBE Q4H PRN 06/13/21 09/12/23 History Metoprolol Tartrate [Lopressor] 50 mg PEG/G-TUBE BID@0900,2100 06/13/21 09/12/23 History carBAMazepine [carBAMazepine Oral 100 mg PEG/G-TUBE 07/02/21 09/12/23 History Susp] TID@0600,1400,2200 Amantadine Hcl Solution 50mg/5ml 100 mg PEG/G-TUBE DAILY@0900 12/22/21 09/12/23 History Lactulose 20 gm PEG/G-TUBE TID@0900,1700,2100 01/03/22 09/12/23 History Scopolamine [Scopolamine 1 MG/72 2 patch TRANSDERM Q72H 01/03/22 09/12/23 History HR patch] Baclofen [Lioresal] 5 mg PEG/G-TUBE TID@0600,1400,2200 05/03/22 09/12/23 Rx tab oxyBUTYnin chloride 5 mg PEG/G-TUBE TID@0600,1400,2200 12/19/22 09/12/23 History Atorvastatin [Lipitor] 40 mg PEG/G-TUBE HS 07/14/23 09/12/23 History Famotidine [Pepcid] 20 mg PEG/G-TUBE DAILY 07/14/23 09/12/23 History Cefpodoxime Proxetil [Vantin] 200 mg PEG/G-TUBE Q12HR 14 Days 09/08/23 09/12/23 Rx #28 tab Lacosamide [Vimpat Oral Soln] 150 mg PO BID@0900,199909/12/23 09/12/23 History Allergies Allergy/AdvReac Type Severity Reaction Status Date / Time meropenem [From Merrem] Allergy Rash/Hives Verified 09/12/23 16:43 ceftolozane [From Zerbaxa] AdvReac Rapid Verified 09/12/23 16:43 Heart Rate tazobactam [From Zerbaxa] AdvReac Rapid Verified 09/12/23 16:43 Heart Rate Physical Examination - Vital Signs Vital Signs: Vital Signs Temp Pulse Resp BP Pulse Ox 09/13/23 11:51 96 18 120/73 96 09/13/23 07:00 80 12 124/85 96 09/13/23 06:04 98.9 F 09/13/23 06:00 85 28 H 146/79 97 09/13/23 05:00 76 15 115/66 98 09/13/23 04:00 78 20 124/97 96 09/13/23 03:00 78 21 144/116 95 09/13/23 02:00 90 17 132/73 09/13/23 01:30 12 108/60 09/13/23 01:00 76 22 119/64 09/13/23 00:30 76 19 112/55 95 09/13/23 00:00 72 23 133/69 98 09/12/23 23:40 77 20 133/69 98 09/12/23 22:53 87 22 144/59 95 09/12/23 22:00 71 23 143/72 100 09/12/23 21:30 74 27 H 144/80 100 09/12/23 21:19 100 09/12/23 20:54 93 L 09/12/23 20:30 24 125/79 09/12/23 20:00 70 12 126/69 09/12/23 19:30 68 22 136/72 09/12/23 19:00 70 14 136/107 09/12/23 18:30 72 20 153/89 09/12/23 18:00 70 18 146/75 09/12/23 17:30 71 18 140/84 09/12/23 16:12 99.4 F 75 20 140/84 95 Intake and Output 09/12/23 09/13/23 09/13/23 22:59 06:59 14:59 Other: Weight 83.915 kg Patient is an elderly male, who is laying in the bed, appears comfo rtable. He does have oxygen by nasal cannula. Patient is alert awake. Patient is nonverbal. He does nod his head sometimes. Patient not able to tell me his name. He was not able to name ball pen, or glasses. Attention, concentration and fund of knowledge is severely limited. Patient during examination started groaning. On cranial nerve examination, pupils are equal, round and not very clearly reacting to light, visual prater could not be tested. He does blink to visual threat bilaterally. Extraocular muscles reveal a right MARCOS, also has nystagmus with gaze. Face is symmetric, did not protrude his tongue. Cannot check his lower cranial nerves. Did not cooperate because of severe dementia. On muscle strength testing, patient has spastic quadriparetic. His tone is increased in the right arm more than the left. 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 Patient is paraplegic as well. Some spontaneous mild proximal gross movement was noted. Deep tendon reflexes are symmetric 2 at the biceps, 1 brachioradialis, absent in the lower limbs, plantars are flat bilaterally. Sensory to touch could not be assessed. Patient does withdraw minimally to painful stimuli. Cerebellar functions cannot be tested. Tone is increased in the arms and legs. Gait deferred.. On general examination, there is no carotid bruit or murmur, S1-S2 audible. Chest is clear on consultation. Abdomen is soft nontender. No organomegaly, bowel sounds present. Peripheral pulses are present. No peripheral edema. Results - Laboratory Findings CBC and BMP: 09/14/23 07:00 09/14/23 07:06 Abnormal Lab Findings: Abnormal Labs 09/12/23 09/12/23 09/12/23 17:01 17:01 17:01 MCH MCHC 30.7 L RDW 17.2 H Sodium 155 H Chloride 117 H BUN 23 H Magnesium 2.5 H Troponin I Urine Protein Trace H Urine Ketones Trace H Urine Mucus Occasional H 09/12/23 09/12/23 09/12/23 17:01 20:25 20:25 MCH 24.9 L MCHC 29.7 L RDW 16.9 H Sodium 156 H Chloride 118 H BUN Magnesium Troponin I 0.036 H* Urine Protein Urine Ketones Urine Mucus Assessment and Plan Assessment: * Advanced multiple sclerosis, severe dementia, nonverbal state, bedridden * Altered mental status, partly due to chronic conditions, rule out status epilepticus * Localization-related epilepsy * Hyponatremia * COPD * History of decubitus ulcer * Dysphagia, history of PEG tube placement Plan: * Stat EEG evaluate for any epileptiform activity, rule out status. * Continue Tegretol 100 mg 3 times a day, Vimpat 150 mg twice a day. * Check Tegretol level. * Other medical management including hypernatremia as per IM. * Neurology will follow. Thank you for the consult.
[2023-09-14 11:59] LABS: Glucose,Whole Blood 136 mg/dL (70-110)
[2023-09-14] MEDS: DEXTROSE 5% IN WATER 1,000 ML IV SCH (12:17)
[2023-09-14] MEDS: SODIUM CHLORIDE 0.45% 1,000 ML IV SCH (12:21)
[2023-09-14 17:01] LABS: Glucose,Whole Blood 99 mg/dL (70-110)
--- NOTE | 2023-09-14 18:16 | P.PN ---
Subjective Progress Note Date: 09/14/23 Patient was seen for follow-up. Patient is laying in the bed, more alert and awake. Nonverbal. No seizure-like activity. Objective - Vital Signs Vital signs: Vital Signs Temp 98.7 F 09/14/23 12:21 Pulse 72 09/14/23 15:53 Resp 21 09/14/23 12:21 BP 124/69 09/14/23 12:21 Pulse Ox 97 09/14/23 12:21 FiO2 Intake & Output 09/13/23 09/14/23 09/14/23 18:59 06:59 18:59 Output Total 475 Balance -475 Weight 83.915 kg 83.915 kg Output: Urine 475 Other: Voiding Method Indwelling Catheter Indwelling Catheter - Exam Unchanged. - Labs CBC & Chem 7: 09/14/23 07:00 09/14/23 07:06 Labs: Abnormal Lab Results - Last 24 Hours (Table) 09/13/23 09/14/23 09/14/23 Range/Units 18:51 05:44 07:00 Hgb 12.1 L (13.0-17.5) gm/dL MCHC 30.2 L (31.0-37.0) g/dL RDW 17.1 H (11.5-15.5) % Lymphocytes # 0.9 L (1.0-4.8) k/uL Sodium 151 H (137-145) mmol/L Chloride (98-107) mmol/L Glucose (74-99) mg/dL POC Glucose (mg/dL) 142 H (70-110) mg/dL Calcium (8.4-10.2) mg/dL Total Protein (6.3-8.2) g/dL Albumin (3.5-5.0) g/dL 09/14/23 09/14/23 Range/Units 07:06 11:43 Hgb (13.0-17.5) gm/dL MCHC (31.0-37.0) g/dL RDW (11.5-15.5) % Lymphocytes # (1.0-4.8) k/uL Sodium (137-145) mmol/L Chloride 110 H (98-107) mmol/L Glucose 118 H (74-99) mg/dL POC Glucose (mg/dL) 136 H (70-110) mg/dL Calcium 8.2 L (8.4-10.2) mg/dL Total Protein 6.1 L (6.3-8.2) g/dL Albumin 3.0 L (3.5-5.0) g/dL Assessment and Plan Assessment: * Advanced multiple sclerosis, severe dementia, nonverbal state, bedridden * Altered mental status, partly due to chronic conditions, rule out status epilepticus * Localization-related epilepsy * Hyponatremia * COPD * History of decubitus ulcer * Dysphagia, history of PEG tube placement Plan: * semiconductor technician not available today at that time it was ordered. Stat EEG will be done tomorrow. * Continue Tegretol 100 mg 3 times a day, Vimpat 150 mg twice a day. * Tegretol level < 3.0. * Other medical management including hypernatremia as per IM. * Further management based upon EEG results.
[2023-09-14] MEDS: ATORVASTATIN 40 MG TAB PEG/G-TUBE SCH (21:27)
[2023-09-15 00:04] LABS: Glucose,Whole Blood 101 mg/dL (70-110)
[2023-09-15] MEDS: IPRATROPIUM-ALBUTEROL 3 ML NEB INHALATION SCH ×6 (00:25→20:58)
[2023-09-15 06:05] LABS: Glucose,Whole Blood 113 mg/dL (70-110)
[2023-09-15] MEDS: oxyBUTYnin chloride 5 MG TAB PEG/G-TUBE SCH ×3 (06:13→21:49)
[2023-09-15] MEDS: BACLOFEN 10 MG TAB PEG/G-TUBE SCH ×3 (06:13→21:49)
[2023-09-15] MEDS: SODIUM CHLORIDE 0.45% 1,000 ML IV SCH ×2 (06:15→15:17)
[2023-09-15] MEDS: MORPHINE SULFATE 4 MG/ML SYRINGE IV PRN (08:13)
[2023-09-15 08:46] LABS: African American GFR (CKD) >90 (>60 ml/min/1.73 sqM); Anion Gap 11 mmol/L; Blood Urea Nitrogen 15 mg/dL (9-20); Calcium 8.1 mg/dL (8.4-10.2); Carbon Dioxide 20 mmol/L (22-30); Chloride 109 mmol/L (98-107); Glucose 117 mg/dL (74-99); Non-African American GFR(CKD) >90 (>60 ml/min/1.73 sqM); Potassium 4.3 mmol/L (3.5-5.1); Sodium 140 mmol/L (137-145)
[2023-09-15] MEDS: LACOSAMIDE 50 MG TABLET PEG/G-TUBE SCH ×2 (09:39→21:48)
[2023-09-15] MEDS: CEFDINIR ORAL SUSP 1,500 MG/60 ML BOTTLE PEG/G-TUBE SCH ×2 (09:39→22:58)
[2023-09-15] MEDS: ASPIRIN 81 MG PEG/G-TUBE SCH (09:39)
[2023-09-15] MEDS: FAMOTIDINE 20 MG TAB PEG/G-TUBE SCH (09:39)
[2023-09-15] MEDS: METOPROLOL TARTRATE 50 MG TAB PEG/G-TUBE SCH ×2 (09:39→21:48)
[2023-09-15] MEDS: LACTULOSE 20 GM/30 ML CUP PEG/G-TUBE SCH ×3 (09:39→21:48)
--- NOTE | 2023-09-15 10:15 | P.PN ---
Subjective Progress Note Date: 09/14/23 Patient is a 63-year-old male with a past medical history of hypertension, multiple sclerosis, seizure disorder, dementia, chronic indwelling Stein catheter ,multiple urinary tract infection, dysphagia on PEG tube, neurogenic bladder. Patient is awake and alert x1 but nonverbal at baseline. Patient is a [facility] of a [facility] was brought to the ER for increasing lethargy. History is limited as patient is nonverbal at baseline. According to EMR, nursing staff at the facility noted and patient was more lethargic. They didn't notice any fever or chills. Patient was not complaining of any pain in any part of the body. Because of increased lethargy, patient was sent to the ER Initial lab work done in the ER showed WBC 5.6, hemoglobin 13.3, platelet count 248, sodium 155, potassium 4.2, BUNs 23, creatinine 0.73, AST 26, AST 25, troponin 0.036 UA negative for infection EKG done in the ER showed normal sinus rhythm, no acute ST segment changes or T- wave inversions seen Patient admitted to internal medicine service 09/14. Patient seen and examined. Nephrology evaluated the patient, change fluids to D5 half normal saline, patient was started on tube feeding. Patient sodium levels improved. Neurology also evaluated the patient, recommended continuation of current medications. Ordered EEG which is pending REVIEW OF SYSTEMS: Cannot be obtained as patient is nonverbal at baseline PHYSICAL EXAMINATION: GENERAL: The patient is alert alert to self, patient is chronically ill-looking HEENT: Pupils are round and equally reacting to light. EOMI. No scleral icterus. No conjunctival pallor. Normocephalic, atraumatic. No pharyngeal erythema. No thyromegaly. CARDIOVASCULAR: S1 and S2 present. No murmurs, rubs, or gallops. PULMONARY: Chest is clear to auscultation, no wheezing or crackles. ABDOMEN: Soft, normoactive bowel sounds. No palpable organomegaly. PEG tube seen MUSCULOSKELETAL: No joint swelling or deformity. EXTREMITIES: No cyanosis, clubbing, or pedal edema. NEUROLOGICAL:awake, alert x1. Nonverbal. Patient is bedbound. SKIN: No rashes. Assessment and plan Hypernatremia Acute metabolic encephalopathy Neurogenic bladder and history of multiple urinary tract infections Multiple sclerosis at age 39. Currently patient is bedbound Seizure disorder Cognitive impairment Hypertension GERD History of DVT Dysphagia/n.p.o. on PEG tube feeding History of trigeminal neuralgia History of ESBL E. coli urinary tract infections Depression Monitor vital signs Monitor CBC Monitor CMP Seizure precautions Continue Vimpat and Tegretol EEG ordered. Neurology recommended doing EEG prior to discharge. Sodium levels improved, nephrology signed off. Continue PEG tube feeding Continue rest of home meds Labs and medication were reviewed.. Continue same treatment. Continue with symptomatic treatment. Resume home medication. Monitor labs and vitals. DVT and GI prophylaxis. Further recommendations as per clinical course of the pat ient Dictation was produced using [employer] dictation software. please excuse any grammatical, word or spelling errors. Objective - Vital Signs Vital signs: Vital Signs Temp 98.4 F 09/15/23 08:12 Pulse 84 09/15/23 08:12 Resp 18 09/15/23 08:12 BP 133/83 09/15/23 08:12 Pulse Ox 95 09/15/23 08:12 FiO2 Intake & Output 09/14/23 09/15/23 09/15/23 18:59 06:59 18:59 Output Total 300 300 Balance -300 -300 Weight 83.915 kg Output: Urine 300 300 Other: Voiding Method Indwelling Catheter Indwelling Catheter # Bowel Movements 0 - Labs CBC & Chem 7: 09/14/23 07:00 09/15/23 07:18 Labs: Abnormal Lab Results - Last 24 Hours (Table) 09/14/23 09/15/23 09/15/23 Range/Units 11:43 06:04 07:18 Chloride 109 H (98-107) mmol/L Carbon Dioxide 20 L (22-30) mmol/L Creatinine 0.63 L (0.66-1.25) mg/dL Glucose 117 H (74-99) mg/dL POC Glucose (mg/dL) 136 H 113 H (70-110) mg/dL Calcium 8.1 L (8.4-10.2) mg/dL
--- NOTE | 2023-09-15 11:02 | XR ---
EXAMINATION TYPE: XR abdomen 1V DATE OF EXAM: 09/15/2023 10:49 AM CLINICAL INDICATION:Male, 63 years old with history of Abdominal distention; [facility] COMPARISON: 08/22/2023 TECHNIQUE: One radiographic view of the abdomen was obtained. FINDINGS: Gas and stool within the colon. The bowel gas pattern is nonspecific without dilated loops of small or large bowel. There is no evidence for organomegaly or pneumoperitoneum. The osseous stru ctures are intact. No abnormal calcifications are present. Fecal material and gas are demonstrated t hroughout the colon and rectum. IMPRESSION: Large stool burden in the distal colon. Large amount of gas in the colon.
--- NOTE | 2023-09-15 11:15 | P.PN ---
Subjective Patient is seen for follow-up for hypernatremia. Currently maintained on half normal saline. Serum sodium at 140 today. Objective - Vital Signs Vital signs: Vital Signs Temp 98.4 F 09/15/23 08:12 Pulse 84 09/15/23 08:12 Resp 18 09/15/23 08:12 BP 133/83 09/15/23 08:12 Pulse Ox 95 09/15/23 08:12 FiO2 Intake & Output 09/14/23 09/15/23 09/15/23 18:59 06:59 18:59 Output Total 300 300 Balance -300 -300 Weight 83.915 kg Output: Urine 300 300 Other: Voiding Method Indwelling Catheter Indwelling Catheter # Bowel Movements 0 - Exam patient is awake. He does not communicate much. Examination of the heart S1 and S2 Examination of the lungs bilateral breath sounds are heard Abdomen is soft nontender No edema noted in the lower extremities Patient does not move his extremities much. Possible contracture noted on the left upper extremity - Labs CBC & Chem 7: 09/14/23 07:00 09/15/23 07:18 Labs: Abnormal Lab Results - Last 24 Hours (Table) 09/14/23 09/15/23 09/15/23 Range/Units 11:43 06:04 07:18 Chloride 109 H (98-107) mmol/L Carbon Dioxide 20 L (22-30) mmol/L Creatinine 0.63 L (0.66-1.25) mg/dL Glucose 117 H (74-99) mg/dL POC Glucose (mg/dL) 136 H 113 H (70-110) mg/dL Calcium 8.1 L (8.4-10.2) mg/dL Assessment and Plan Assessment: 1. Hypernatremia from lack of oral water intake. Improved. Sodium level 140 this morning. 2. History of MS. 3. History of neurogenic bladder with chronic Stein catheter. 4. Dysphagia. Has PEG tube. Plan: Continue half-normal saline. Maintain free water with tube feedings Repeat labs in a.m.
[2023-09-15] MEDS ORDERED: bisacodyL 5 MG TABLET.DR PO STA (11:18)
[2023-09-15] MEDS ORDERED: bisacodyL 10 MG SUPP RECTAL STA (11:21)
[2023-09-15 12:04] LABS: Glucose,Whole Blood 124 mg/dL (70-110)
--- NOTE | 2023-09-15 12:38 | P.PN ---
Subjective Progress Note Date: 09/15/23 Patient is a 63-year-old male with a past medical history of hypertension, multiple sclerosis, seizure disorder, dementia, chronic indwelling Stein catheter ,multiple urinary tract infection, dysphagia on PEG tube, neurogenic bladder. Patient is awake and alert x1 but nonverbal at baseline. Patient is a resident of a custodial facility was brought to the ER for increasing lethargy. History is limited as patient is nonverbal at baseline. According to EMR, nursing staff at the facility noted and patient was more lethargic. They didn't notice any fever or chills. Patient was not complaining of any pain in any part of the body. Because of increased lethargy, patient was sent to the ER Initial lab work done in the ER showed WBC 5.6, hemoglobin 13.3, platelet count 248, sodium 155, potassium 4.2, BUNs 23, creatinine 0.73, AST 26, AST 25, troponin 0.036 UA negative for infection EKG done in the ER showed normal sinus rhythm, no acute ST segment changes or T- wave inversions seen Patient admitted to internal medicine service 09/14. Patient seen and examined. Nephrology evaluated the patient, change fluids to D5 half normal saline, patient was started on tube feeding. Patient sodium levels improved. Neurology also evaluated the patient, recommended continuation of current medications. Ordered EEG which is pending 09/15. Patient seen and examined. Nursing staff noted the patient abdominal is distended, stat abdominal x-ray ordered. Patient tolerating tube feeding. Hasn't had a bowel movement yet. No nausea vomiting REVIEW OF SYSTEMS: Review of systems unobtainable, patient is nonverbal at baseline PHYSICAL EXAMINATION: GENERAL: The patient is alert alert to self, patient is chronically ill-looking HEENT: Pupils are round and equally reacting to light. EOMI. No scleral icterus. No conjunctival pallor. Normocephalic, atraumatic. No pharyngeal erythema. No thyromegaly. CARDIOVASCULAR: S1 and S2 present. No murmurs, rubs, or gallops. PULMONARY: Chest is clear to auscultation, no wheezing or crackles. ABDOMEN: Distended, normoactive bowel sounds. No palpable organomegaly. PEG tube seen MUSCULOSKELETAL: No joint swelling or deformity. EXTREMITIES: No cyanosis, clubbing, or pedal edema. NEUROLOGICAL:awake, alert x1. Nonverbal. Patient is bedbound. SKIN: No rashes. Assessment and plan Hypernatremia Acute metabolic encephalopathy Neurogenic bladder and history of multiple urinary tract infections Multiple sclerosis at age 39. Currently patient is bedbound Seizure disorder Cognitive impairment Hypertension GERD History of DVT Dysphagia/n.p.o. on PEG tube feeding History of trigeminal neuralgia History of ESBL E. coli urinary tract infections Depression Monitor vital signs Monitor CBC Monitor CMP Seizure precautions Continue Vimpat and Tegretol EEG ordered. Stat abdominal x-ray ordered Neurology recommended doing EEG prior to discharge. Continue rest of home meds Labs and medication were reviewed.. Continue same treatment. Continue with symptomatic treatment. Resume home medication. Monitor labs and vitals. DVT and GI prophylaxis. Further recommendations as per clinical course of the patient Dictation was produced using [employer] dictation software. please excuse any grammatical, word or spelling errors. Objective - Vital Signs Vital signs: Vital Signs Temp 98.4 F 09/15/23 08:12 Pulse 84 09/15/23 08:12 Resp 18 09/15/23 08:12 BP 133/83 09/15/23 08:12 Pulse Ox 95 09/15/23 08:12 FiO2 Intake & Output 09/14/23 09/15/23 09/15/23 18:59 06:59 18:59 Output Total 300 300 Balance -300 -300 Weight 83.915 kg Output: Urine 300 300 Other: Voiding Method Indwelling Catheter Indwelling Catheter # Bowel Movements 0 - Labs CBC & Chem 7: 09/14/23 07:00 09/15/23 07:18 Labs: Abnormal Lab Results - Last 24 Hours (Table) 09/14/23 09/15/23 09/15/23 Range/Units 11:43 06:04 07:18 Chloride 109 H (98-107) mmol/L Carbon Dioxide 20 L (22-30) mmol/L Creatinine 0.63 L (0.66-1.25) mg/dL Glucose 117 H (74-99) mg/dL POC Glucose (mg/dL) 136 H 113 H (70-110) mg/dL Calcium 8.1 L (8.4-10.2) mg/dL
--- NOTE | 2023-09-15 16:04 | P.CON ---
Consult Note - . Consult date: 09/15/23 Abdominal Pain HPI - General Source: patient (This is a 63 year old male admitted with hypernatremia and metabolic encephalopathy. He was noted to be distended today. An AXR was performed which showed a large stool burden and constipation.), RN notes reviewed, old records reviewed, Caregiver Mode of arrival: EMS Limitations: altered mental status, physical limitation - History of Present Illness Severity: severe - Related Data Home Medications Medication Instructions Recorded Confirmed Ipratropium-Albuterol Nebulize 3 ml INHALATION RT-Q4H 12/16/19 09/12/23 [Duoneb 0.5 mg-3 mg/3 ml Soln] Aspirin 81 mg PEG/G-TUBE DAILY@0900 11/27/20 09/12/23 Acetaminophen Tab [Tylenol] 650 mg PEG/G-TUBE Q4H PRN 06/13/21 09/12/23 Metoprolol Tartrate [Lopressor] 50 mg PEG/G-TUBE BID@0900,209906/13/21 09/12/23 carBAMazepine [carBAMazepine Oral 100 mg PEG/G-TUBE 07/02/21 09/12/23 Susp] TID@0600,1400,2200 Amantadine Hcl Solution 50mg/5ml 100 mg PEG/G-TUBE DAILY@0900 12/22/21 09/12/23 Lactulose 20 gm PEG/G-TUBE TID@0900,1700,2100 01/03/22 09/12/23 Scopolamine [Scopolamine 1 MG/72 2 patch TRANSDERM Q72H 01/03/22 09/12/23 HR patch] oxyBUTYnin chloride 5 mg PEG/G-TUBE TID@0600,1400,2200 12/19/22 09/12/23 Atorvastatin [Lipitor] 40 mg PEG/G-TUBE HS 07/14/23 09/12/23 Famotidine [Pepcid] 20 mg PEG/G-TUBE DAILY 07/14/23 09/12/23 Lacosamide [Vimpat Oral Soln] 150 mg PO BID@0900,199909/12/23 09/12/23 Previous Rx's Medication Instructions Recorded Baclofen [Lioresal] 5 mg PEG/G-TUBE TID@0600,1400,2200 08/03/22 tab Cefpodoxime Proxetil [Vantin] 200 mg PEG/G-TUBE Q12HR 14 Days 09/08/23 #28 tab Allergies Allergy/AdvReac Type Severity Reaction Status Date / Time meropenem [From Merrem] Allergy Rash/Hives Verified 09/12/23 16:43 ceftolozane [From Zerbaxa] AdvReac Rapid Verified 09/12/23 16:43 Heart Rate tazobactam [From Zerbaxa] AdvReac Rapid Verified 09/12/23 16:43 Heart Rate Review of Systems - Review of Systems Constitutional: Reports: other (Patient lethargic and doesnt respond to questions) EENTM: Reports: no symptoms reported Physical Exam - Physical Exam General Appearance: no apparent distress Eyes, Ears, Nose, Throat Exam: PERRL/EOMI, normal ENT inspection Neck: Neck Respiratory: chest non-tender, lungs clear, normal breath sounds Cardiovascular/Chest: normal peripheral pulses, regular rate, rhythm Gastrointestinal/Abdominal: non tender, soft, distended Skin Exam: normal color Assessment and Plan (1) Constipation Narrative/Plan: 1. AXR reviewed 2. Will start Miralax and Dulcolax Suppository Scheduled 3. Ok to continue Diet 4. If patients symptoms change or worsen, will obtain CT-AP Current Visit: Yes Status: Acute Code(s): K59.00 - CONSTIPATION, UNSPECIFIED SNOMED Code(s): 85665440
[2023-09-15] MEDS: bisacodyL 10 MG SUPP RECTAL SCH (17:21)
--- NOTE | 2023-09-15 17:54 | P.PN ---
Subjective Progress Note Date: 09/15/23 Patient was seen for follow-up. Patient is laying in the bed, more alert and awake. Nonverbal. No seizure-like activity. Objective - Vital Signs Vital signs: Vital Signs Temp 98.4 F 09/15/23 15:16 Pulse 82 09/15/23 16:13 Resp 18 09/15/23 15:16 BP 135/91 09/15/23 15:16 Pulse Ox 96 09/15/23 15:16 FiO2 Intake & Output 09/14/23 09/15/23 09/15/23 18:59 06:59 18:59 Output Total 300 300 Balance -300 -300 Weight 83.915 kg Output: Urine 300 300 Other: Voiding Method Indwelling Catheter Indwelling Catheter Indwelling Catheter # Bowel Movements 0 - Exam Unchanged. - Labs CBC & Chem 7: 09/14/23 07:00 09/15/23 07:18 Labs: Abnormal Lab Results - Last 24 Hours (Table) 09/15/23 09/15/23 09/15/23 Range/Units 06:04 07:18 11:52 Chloride 109 H (98-107) mmol/L Carbon Dioxide 20 L (22-30) mmol/L Creatinine 0.63 L (0.66-1.25) mg/dL Glucose 117 H (74-99) mg/dL POC Glucose (mg/dL) 113 H 124 H (70-110) mg/dL Calcium 8.1 L (8.4-10.2) mg/dL Assessment and Plan Assessment: * Advanced multiple sclerosis, severe dementia, nonverbal state, bedridden * Altered mental status, partly due to chronic conditions, rule out status epilepticus * Localization-related epilepsy * Hyponatremia * COPD * History of decubitus ulcer * Dysphagia, history of PEG tube placement Plan: * EEG was performed, which was abnormal due to background slowing of mild to moderate degree, suggestive of encephalopathy. No epileptiform activity was seen. No status. * Continue Vimpat 150 mg twice a day. * Tegretol level < 3.0. We will increase Tegretol to 200 mg twice a day (prior to arrival was on Tegretol 100 mg twice a day) * Other medical management including hypernatremia as per IM. * Neurologically cleared for discharge. Discussed with primary physician.
[2023-09-15] MEDS: polyethylene glycoL 3350 17 GM POWD.PACK PO SCH (17:58)
--- NOTE | 2023-09-15 21:41 | EEG ---
ELECTROENCEPHALOGRAM REPORT PREAMBLE: This is a 63-year-old male with advanced dementia, MS, history of seizures, came with altered mental status. EEG FINDINGS: This is a 21-channel digital EEG recorded with video component, utilizing 10/20 international system with referential and bipolar montages. Background consists of well-developed, but somewhat disorganized, mixed frequencies of alpha, with theta activity seen in bihemispheric region. Background is posterior dominant, and does not seem to be clearly reactive to eye opening or closing. Lot of myogenic artifact was seen during the study. Photic stimulation was not performed. Hyperventilation was not done. Different stages of sleep were not seen. No focal or generalized epileptiform activity was seen. IMPRESSION: This is an abnormal EEG due to background slowing of mild to moderate degree. This is suggestive of generalized cerebral dysfunction as can be seen with encephalopathy of metabolic, vascular, or degenerative causes. No epileptiform activity was seen. MMODL / IJN: [id number] /
[2023-09-15] MEDS: ATORVASTATIN 40 MG TAB PEG/G-TUBE SCH (21:48)
[2023-09-16 00:11] LABS: Glucose,Whole Blood 114 mg/dL (70-110)
[2023-09-16] MEDS: IPRATROPIUM-ALBUTEROL 3 ML NEB INHALATION SCH ×6 (00:20→20:49)
[2023-09-16] MEDS: oxyBUTYnin chloride 5 MG TAB PEG/G-TUBE SCH ×3 (05:16→21:06)
[2023-09-16] MEDS: BACLOFEN 10 MG TAB PEG/G-TUBE SCH ×3 (05:17→21:06)
[2023-09-16 06:14] LABS: Glucose,Whole Blood 163 mg/dL (70-110)
--- NOTE | 2023-09-16 08:07 | XR ---
EXAMINATION TYPE: XR abdomen 1V DATE OF EXAM: 09/16/2023 6:38 AM CLINICAL INDICATION:Male, 63 years old with history of acute abdominal distention; [facility] COMPARISON: One day prior TECHNIQUE: One radiographic view of the abdomen was obtained. FINDINGS: Gas and stool within the colon. The bowel gas pattern is nonspecific without dilated loops of small or large bowel. There is no evidence for organomegaly or pneumoperitoneum. The osseous stru ctures are intact. No abnormal calcifications are present. Fecal material and gas are demonstrated t hroughout the colon and rectum. IMPRESSION: Persistent gaseous dilation of multiple loops of bowel throughout the abdomen.
[2023-09-16] MEDS: SCOPOLAMINE 1 MG/72 HR PATCH TRANSDERM SCH (09:12)
[2023-09-16] MEDS: bisacodyL 10 MG SUPP RECTAL SCH ×2 (09:22→09:42)
[2023-09-16] MEDS: LACTULOSE 20 GM/30 ML CUP PEG/G-TUBE SCH (09:42)
[2023-09-16] MEDS: polyethylene glycoL 3350 17 GM POWD.PACK PO SCH (09:42)
[2023-09-16] MEDS: METOPROLOL TARTRATE 50 MG TAB PEG/G-TUBE SCH ×2 (09:43→21:06)
[2023-09-16] MEDS: ASPIRIN 81 MG PEG/G-TUBE SCH (09:43)
[2023-09-16] MEDS: CEFDINIR ORAL SUSP 1,500 MG/60 ML BOTTLE PEG/G-TUBE SCH ×2 (09:43→21:07)
[2023-09-16] MEDS: FAMOTIDINE 20 MG TAB PEG/G-TUBE SCH (09:43)
[2023-09-16] MEDS: LACOSAMIDE 50 MG TABLET PEG/G-TUBE SCH ×2 (09:43→21:06)
[2023-09-16 10:37] LABS: ALT 23 U/L (4-49); AST 24 U/L (17-59); African American GFR (CKD) >90 (>60 ml/min/1.73 sqM); Albumin 3.3 g/dL (3.5-5.0); Alkaline Phosphatase 97 U/L (38-126); Anion Gap 10 mmol/L; Blood Urea Nitrogen 13 mg/dL (9-20); Calcium 8.4 mg/dL (8.4-10.2); Carbon Dioxide 26 mmol/L (22-30); Chloride 104 mmol/L (98-107); Glucose 133 mg/dL (74-99); Non-African American GFR(CKD) >90 (>60 ml/min/1.73 sqM); Potassium 4.3 mmol/L (3.5-5.1); Sodium 140 mmol/L (137-145); Total Bilirubin 0.3 mg/dL (0.2-1.3); Total Protein 6.4 g/dL (6.3-8.2)
--- NOTE | 2023-09-16 11:02 | P.PN ---
Subjective Patient is seen for follow-up for hypernatremia. Currently maintained on half normal saline. Serum sodium at 140 today. Objective - Vital Signs Vital signs: Vital Signs Temp 97.5 F L 09/16/23 09:21 Pulse 98 09/16/23 09:21 Resp 18 09/16/23 09:21 BP 133/81 09/16/23 09:21 Pulse Ox 95 09/16/23 09:21 FiO2 Intake & Output 09/15/23 09/16/23 09/16/23 18:59 06:59 18:59 Output Total 650 850 300 Balance -650 -850 -300 Output: Urine 650 850 300 Other: Voiding Method Indwelling Catheter Indwelling Catheter Indwelling Catheter # Bowel Movements 1 - Exam patient is awake. He does not communicate much. Examination of the heart S1 and S2 Examination of the lungs bilateral breath sounds are heard Abdomen is soft nontender No edema noted in the lower extremities Patient does not move his extremities much. Possible contracture noted on the left upper extremity - Labs CBC & Chem 7: 09/14/23 07:00 09/16/23 09:53 Labs: Abnormal Lab Results - Last 24 Hours (Table) 09/15/23 09/16/23 09/16/23 Range/Units 11:52 00:07 06:13 Glucose (74-99) mg/dL POC Glucose (mg/dL) 124 H 114 H 163 H (70-110) mg/dL Albumin (3.5-5.0) g/dL 09/16/23 Range/Units 09:53 Glucose 133 H (74-99) mg/dL POC Glucose (mg/dL) (70-110) mg/dL Albumin 3.3 L (3.5-5.0) g/dL Assessment and Plan Assessment: 1. Hypernatremia from lack of oral water intake. Improved. Sodium level 140 this morning. 2. History of MS. 3. History of neurogenic bladder with chronic Stein catheter. 4. Dysphagia. Has PEG tube. Plan: Continue half-normal saline. Maintain free water with tube feedings, increase dose slightly Repeat labs in a.m.
--- NOTE | 2023-09-16 11:04 | P.PN ---
Subjective Progress Note Date: 09/16/23 Principal diagnosis: Constipation Patient having multiple loose stools. Today's x-rays however still shows some bowel distention likely colonic in origin. He appears comfortable. He has nontender. Mild distention on exam. He is afebrile. Objective - Vital Signs Vital signs: Vital Signs Temp 97.5 F L 09/16/23 09:21 Pulse 98 09/16/23 09:21 Resp 18 09/16/23 09:21 BP 133/81 09/16/23 09:21 Pulse Ox 95 09/16/23 09:21 FiO2 Intake & Output 09/15/23 09/16/23 09/16/23 18:59 06:59 18:59 Output Total 650 850 300 Balance -650 -850 -300 Output: Urine 650 850 300 Other: Voiding Method Indwelling Catheter Indwelling Catheter Indwelling Catheter # Bowel Movements 1 - Exam Abdomen: Soft, mild distention, nontender, PEG tube in place - Labs CBC & Chem 7: 09/14/23 07:00 09/16/23 09:53 Labs: Abnormal Lab Results - Last 24 Hours (Table) 09/15/23 09/16/23 09/16/23 Range/Units 11:52 00:07 06:13 Glucose (74-99) mg/dL POC Glucose (mg/dL) 124 H 114 H 163 H (70-110) mg/dL Albumin (3.5-5.0) g/dL 09/16/23 Range/Units 09:53 Glucose 133 H (74-99) mg/dL POC Glucose (mg/dL) (70-110) mg/dL Albumin 3.3 L (3.5-5.0) g/dL Assessment and Plan (1) Abdominal distention Narrative/Plan: 63-year-old male with abdominal distention and constipation. Suspect colonic ileus. Improved after starting stool softeners. Hold lactulose for now. We'll reassess tomorrow. Flat plate already ordered for tomorrow morning. If distention persists we'll order CT abdomen and pelvis. Current Visit: No Status: Acute Code(s): R14.0 - ABDOMINAL DISTENSION (GASEOUS) SNOMED Code(s): 17956616
[2023-09-16 11:57] LABS: Glucose,Whole Blood 133 mg/dL (70-110)
--- NOTE | 2023-09-16 12:38 | P.PN ---
Subjective Progress Note Date: 09/16/23 Patient is a 63-year-old male with a past medical history of hypertension, multiple sclerosis, seizure disorder, dementia, chronic indwelling Stein catheter ,multiple urinary tract infection, dysphagia on PEG tube, neurogenic bladder. Patient is awake and alert x1 but nonverbal at baseline. Patient is a resident of a care home facility was brought to the ER for increasing lethargy. History is limited as patient is nonverbal at baseline. According to EMR, nursing staff at the facility noted and patient was more lethargic. They didn't notice any fever or chills. Patient was not complaining of any pain in any part of the body. Because of increased lethargy, patient was sent to the ER Initial lab work done in the ER showed WBC 5.6, hemoglobin 13.3, platelet count 248, sodium 155, potassium 4.2, BUNs 23, creatinine 0.73, AST 26, AST 25, troponin 0.036 UA negative for infection EKG done in the ER showed normal sinus rhythm, no acute ST segment changes or T- wave inversions seen Patient admitted to internal medicine service 09/14. Patient seen and examined. Nephrology evaluated the patient, change fluids to D5 half normal saline, patient was started on tube feeding. Patient sodium levels improved. Neurology also evaluated the patient, recommended continuation of current medications. Ordered EEG which is pending 09/15. Patient seen and examined. Nursing staff noted the patient abdominal is distended, stat abdominal x-ray ordered. Patient tolerating tube feeding. Hasn't had a bowel movement yet. No nausea vomiting 09/16. Patient seen and examined. Patient had multiple bowel movements overnight, lactulose discontinued. Does not look in acute distress. Denies any nausea or vomiting REVIEW OF SYSTEMS: Review of systems unobtainable, patient is nonverbal at baseline PHYSICAL EXAMINATION: GENERAL: The patient is alert alert to self, patient is chronically ill-looking HEENT: Pupils are round and equally reacting to light. EOMI. No scleral icterus. No conjunctival pallor. Normocephalic, atraumatic. No pharyngeal erythema. No thyromegaly. CARDIOVASCULAR: S1 and S2 present. No murmurs, rubs, or gallops. PULMONARY: Chest is clear to auscultation, no wheezing or crackles. ABDOMEN: Soft, normoactive bowel sounds. No palpable organomegaly. PEG tube seen MUSCULOSKELETAL: No joint swelling or deformity. EXTREMITIES: No cyanosis, clubbing, or pedal edema. NEUROLOGICAL:awake, alert x1. Nonverbal. Patient is bedbound. SKIN: No rashes. Assessment and plan Hypernatremia Acute metabolic encephalopathy Neurogenic bladder and history of multiple urinary tract infections Multiple sclerosis at age 39. Currently patient is bedbound Seizure disorder Cognitive impairment Hypertension GERD History of DVT Dysphagia/n.p.o. on PEG tube feeding History of trigeminal neuralgia History of ESBL E. coli urinary tract infections Depression Monitor vital signs Monitor CBC Monitor CMP Seizure precautions Continue Vimpat and Tegretol EEG negative for seizure like activity Neurology following Surgery following, recommending repeating abdominal x-ray in the morning Possible discharge in next 24 hours to [facility] Labs and medication were reviewed.. Continue same treatment. Continue with symptomatic treatment. Resume home medication. Monitor labs and vitals. DVT and GI prophylaxis. Further recommendations as per clinical course of the patient Dictation was produced using [employer] dictation software. please excuse any grammatical, word or spelling errors. Objective - Vital Signs Vital signs: Vital Signs Temp 97.6 F 09/16/23 11:53 Pulse 84 09/16/23 11:53 Resp 18 09/16/23 11:53 BP 145/75 09/16/23 11:53 Pulse Ox 95 09/16/23 11:53 FiO2 Intake & Output 09/15/23 09/16/23 09/16/23 18:59 06:59 18:59 Output Total 650 850 300 Balance -650 -850 -300 Output: Urine 650 850 300 Other: Voiding Method Indwelling Catheter Indwelling Catheter Indwelling Catheter # Bowel Movements 1 - Labs CBC & Chem 7: 09/14/23 07:00 09/16/23 09:53 Labs: Abnormal Lab Results - Last 24 Hours (Table) 09/16/23 09/16/23 09/16/23 Range/Units 00:07 06:13 09:53 Glucose 133 H (74-99) mg/dL POC Glucose (mg/dL) 114 H 163 H (70-110) mg/dL Albumin 3.3 L (3.5-5.0) g/dL 09/16/23 Range/Units 11:55 Glucose (74-99) mg/dL POC Glucose (mg/dL) 133 H (70-110) mg/dL Albumin (3.5-5.0) g/dL
[2023-09-16] MEDS: SODIUM CHLORIDE 0.45% 1,000 ML IV SCH (13:33)
[2023-09-16] MEDS: ACETAMINOPHEN TAB 325 MG TAB PEG/G-TUBE PRN (17:26)
[2023-09-16 18:03] LABS: Glucose,Whole Blood 132 mg/dL (70-110)
[2023-09-16] MEDS: ATORVASTATIN 40 MG TAB PEG/G-TUBE SCH (21:06)
[2023-09-16 23:53] LABS: Glucose,Whole Blood 115 mg/dL (70-110)
[2023-09-17] MEDS: IPRATROPIUM-ALBUTEROL 3 ML NEB INHALATION SCH ×6 (00:33→20:37)
[2023-09-17 06:02] LABS: Glucose,Whole Blood 111 mg/dL (70-110)
[2023-09-17] MEDS: BACLOFEN 10 MG TAB PEG/G-TUBE SCH ×3 (06:09→21:35)
[2023-09-17] MEDS: ACETAMINOPHEN TAB 325 MG TAB PEG/G-TUBE PRN (06:09)
[2023-09-17] MEDS: oxyBUTYnin chloride 5 MG TAB PEG/G-TUBE SCH ×3 (06:09→21:35)
--- NOTE | 2023-09-17 07:47 | XR ---
EXAMINATION TYPE: XR abdomen 1V DATE OF EXAM: 09/17/2023 COMPARISON: 09/16/2023 INDICATION: Acute abdominal distention TECHNIQUE: Single view abdomen supine view FINDINGS: Nonspecific bowel gas pattern is present. Fecal debris and air is within the colon. Some nonspecific prominent small bowel loops containing air within the midabdomen are present. These are diminished fr om the comparison study. Psoas margins are normal. No organomegaly is present. There is a subcapital fracture left hip. This is chronic. IMPRESSION: 1. Nonspecific abdomen. There is some improving appearance of mid abdominal bowel air. Continued galindo toring is recommended. 2. Chronic left hip fracture
[2023-09-17] MEDS: CEFDINIR ORAL SUSP 1,500 MG/60 ML BOTTLE PEG/G-TUBE SCH ×2 (09:59→22:01)
[2023-09-17] MEDS: LACOSAMIDE 50 MG TABLET PEG/G-TUBE SCH ×2 (09:59→21:35)
[2023-09-17] MEDS: ASPIRIN 81 MG PEG/G-TUBE SCH (09:59)
[2023-09-17] MEDS: polyethylene glycoL 3350 17 GM POWD.PACK PO SCH (09:59)
[2023-09-17] MEDS: METOPROLOL TARTRATE 50 MG TAB PEG/G-TUBE SCH ×2 (09:59→21:35)
[2023-09-17] MEDS: bisacodyL 10 MG SUPP RECTAL SCH (09:59)
[2023-09-17] MEDS: FAMOTIDINE 20 MG TAB PEG/G-TUBE SCH (10:00)
--- NOTE | 2023-09-17 10:55 | P.PN ---
Subjective Patient is seen for follow-up for hypernatremia. Currently maintained on half normal saline. Serum sodium at 140 . Free water to be increased with tube feedings. Objective - Vital Signs Vital signs: Vital Signs Temp 98.2 F 09/17/23 09:55 Pulse 94 09/17/23 09:55 Resp 18 09/17/23 09:55 BP 111/75 09/17/23 09:55 Pulse Ox 99 09/17/23 09:55 FiO2 Intake & Output 09/16/23 09/17/23 09/17/23 18:59 06:59 18:59 Output Total 2024 Balance -2024 Weight 86.5 kg Output: Urine 2024 Other: Voiding Method Indwelling Catheter Indwelling Catheter # Bowel Movements 1 2 - Exam patient is awake. He does not communicate much. Examination of the heart S1 and S2 Examination of the lungs bilateral breath sounds are heard Abdomen is soft nontender No edema noted in the lower extremities Patient does not move his extremities much. Possible contracture noted on the left upper extremity - Labs CBC & Chem 7: 09/14/23 07:00 09/16/23 09:53 Labs: Abnormal Lab Results - Last 24 Hours (Table) 09/16/23 09/16/23 09/16/23 Range/Units 11:55 17:51 23:51 POC Glucose (mg/dL) 133 H 132 H 115 H (70-110) mg/dL 09/17/23 Range/Units 06:00 POC Glucose (mg/dL) 111 H (70-110) mg/dL Assessment and Plan Assessment: 1. Hypernatremia from lack of oral water intake. Improved. Sodium level 140. Maintained on half normal saline at 50 mL an hour and free water down feeding tube. 2. History of MS. 3. History of neurogenic bladder with chronic Stein catheter. 4. Dysphagia. Has PEG tube. Plan: Check sodium today Increase free water to 60 mL per hour with tube feedings and hopefully we can discontinue the half normal saline infusion.
[2023-09-17 11:24] LABS: African American GFR (CKD) >90 (>60 ml/min/1.73 sqM); Anion Gap 9 mmol/L; Blood Urea Nitrogen 13 mg/dL (9-20); Calcium 8.3 mg/dL (8.4-10.2); Carbon Dioxide 24 mmol/L (22-30); Chloride 108 mmol/L (98-107); Glucose 109 mg/dL (74-99); Non-African American GFR(CKD) >90 (>60 ml/min/1.73 sqM); Potassium 4.4 mmol/L (3.5-5.1); Sodium 141 mmol/L (137-145)
[2023-09-17 11:56] LABS: Anisocytosis Slight; Basophils % (A) 1 %; Eosinophils # (A) 0.4 k/uL (0-0.7); Eosinophils % (A) 9 %; HCT 38.7 % (39.0-53.0); HGB 12.2 gm/dL (13.0-17.5); Hypochromasia Moderate; Lymphocytes # (A) 0.7 k/uL (1.0-4.8); Lymphocytes % (A) 16 %; MCH 25.5 pg (25.0-35.0); MCHC 31.4 g/dL (31.0-37.0); MCV 81.1 fL (80.0-100.0); Mean Platelet Volume 8.7; Microcytosis Slight; Monocytes # (A) 0.4 k/uL (0-1.0); Monocytes % (A) 8 %; Neutrophils # (A) 2.8 k/uL (1.3-7.7); Neutrophils % (A) 62 %; Platelet Count 221 k/uL (150-450); RBC 4.77 m/uL (4.30-5.90); RDW 17.9 % (11.5-15.5); WBC 4.5 k/uL (3.8-10.6)
[2023-09-17 12:15] LABS: Glucose,Whole Blood 116 mg/dL (70-110)
--- NOTE | 2023-09-17 13:55 | P.PN ---
Subjective Progress Note Date: 09/17/23 CHIEF COMPLAINT: Constipation HISTORY OF PRESENT ILLNESS: Patient tolerating tube feeds at 60 mL per hour. Minimal residual per nursing staff. No evidence of pain. Appears comfortable. He had been having bowel movements. Abdominal x-ray reports nonspecific abdomen. There is some improving appearance and mid abdominal bowel air. Continued monitoring is recommended. Afebrile. WBC 4.5 Hgb 12.2 PHYSICAL EXAM: VITAL SIGNS: Reviewed. GENERAL: Well-developed in no acute distress. ABDOMEN: Soft. Mildly distended. Nontender. PEG tube in place NEUROLOGIC: Alert and oriented. Cranial nerves II through XII grossly intact. ASSESSMENT: 1. Constipation 2. Abdominal distention 3. Suspect colonic ileus PLAN: -Resume patient's home lactulose 20 g 3 times a day. X-ray does show evidence of retained stool in colon -Continue tube feeds Physician Fuel Handler note has been reviewed by physician. Signing provider agrees with the documented findings, assessment, and plan of care. I have personally seen and examined the patient, reviewed the FINANCIAL CONTROLLER /PAs history, exam and MDM and agree with the assessment and plan as written. Based on total visit time, I have performed more than 50% of the visit. As above: Patient appears comfortable. Nontender on exam. Still somewhat distended. Abdominal x-rays still show right-sided colonic stool. Continue stool softeners. We'll follow. Objective - Vital Signs Vital signs: Vital Signs Temp 98 F 09/17/23 12:50 Pulse 70 09/17/23 12:50 Resp 16 09/17/23 12:50 BP 126/82 09/17/23 12:50 Pulse Ox 100 09/17/23 12:50 FiO2 Intake & Output 09/16/23 09/17/23 09/17/23 18:59 06:59 18:59 Output Total 2024 450 Balance -2024 - Weight 86.5 kg Output: Urine 2024 450 Other: Voiding Method Indwelling Catheter Indwelling Catheter Indwelling Catheter # Bowel Movements 1 2 - Labs CBC & Chem 7: 09/17/23 11:37 09/17/23 10:41 Labs: Abnormal Lab Results - Last 24 Hours (Table) 09/16/23 09/16/23 09/17/23 Range/Units 17:51 23:51 06:00 Hgb (13.0-17.5) gm/dL Hct (39.0-53.0) % RDW (11.5-15.5) % Lymphocytes # (1.0-4.8) k/uL Chloride (98-107) mmol/L Creatinine (0.66-1.25) mg/dL Glucose (74-99) mg/dL POC Glucose (mg/dL) 132 H 115 H 111 H (70-110) mg/dL Calcium (8.4-10.2) mg/dL 09/17/23 09/17/23 09/17/23 Range/Units 10:41 11:37 12:14 Hgb 12.2 L (13.0-17.5) gm/dL Hct 38.7 L (39.0-53.0) % RDW 17.9 H (11.5-15.5) % Lymphocytes # 0.7 L (1.0-4.8) k/uL Chloride 108 H (98-107) mmol/L Creatinine 0.65 L (0.66-1.25) mg/dL Glucose 109 H (74-99) mg/dL POC Glucose (mg/dL) 116 H (70-110) mg/dL Calcium 8.3 L (8.4-10.2) mg/dL
[2023-09-17 18:12] LABS: Glucose,Whole Blood 111 mg/dL (70-110)
[2023-09-17] MEDS: LACTULOSE 20 GM/30 ML CUP PEG/G-TUBE SCH ×2 (18:34→21:35)
[2023-09-17] MEDS: SODIUM CHLORIDE 0.45% 1,000 ML IV SCH (21:28)
[2023-09-17] MEDS: ATORVASTATIN 40 MG TAB PEG/G-TUBE SCH (21:35)
[2023-09-17 23:47] LABS: Glucose,Whole Blood 120 mg/dL (70-110)
[2023-09-18] MEDS: IPRATROPIUM-ALBUTEROL 3 ML NEB INHALATION SCH ×6 (00:56→21:10)
[2023-09-18] MEDS: oxyBUTYnin chloride 5 MG TAB PEG/G-TUBE SCH ×3 (05:20→21:13)
[2023-09-18] MEDS: BACLOFEN 10 MG TAB PEG/G-TUBE SCH ×3 (05:20→21:12)
[2023-09-18 06:07] LABS: Glucose,Whole Blood 111 mg/dL (70-110)
[2023-09-18 06:47] LABS: African American GFR (CKD) >90 (>60 ml/min/1.73 sqM); Anion Gap 12 mmol/L; Blood Urea Nitrogen 16 mg/dL (9-20); Calcium 8.4 mg/dL (8.4-10.2); Carbon Dioxide 19 mmol/L (22-30); Chloride 108 mmol/L (98-107); Glucose 118 mg/dL (74-99); Non-African American GFR(CKD) >90 (>60 ml/min/1.73 sqM); Sodium 139 mmol/L (137-145)
[2023-09-18] MEDS: bisacodyL 10 MG SUPP RECTAL SCH (10:00)
[2023-09-18] MEDS: FAMOTIDINE 20 MG TAB PEG/G-TUBE SCH (10:04)
[2023-09-18] MEDS: METOPROLOL TARTRATE 50 MG TAB PEG/G-TUBE SCH ×2 (10:04→21:13)
[2023-09-18] MEDS: ASPIRIN 81 MG PEG/G-TUBE SCH (10:04)
[2023-09-18] MEDS: LACOSAMIDE 50 MG TABLET PEG/G-TUBE SCH ×2 (10:04→21:12)
[2023-09-18] MEDS: polyethylene glycoL 3350 17 GM POWD.PACK PO SCH (10:07)
[2023-09-18] MEDS: LACTULOSE 20 GM/30 ML CUP PEG/G-TUBE SCH ×3 (10:07→21:13)
[2023-09-18] MEDS: CEFDINIR ORAL SUSP 1,500 MG/60 ML BOTTLE PEG/G-TUBE SCH ×2 (10:08→21:13)
--- NOTE | 2023-09-18 10:35 | P.PN ---
Subjective Progress Note Date: 09/18/23 CHIEF COMPLAINT: Constipation HISTORY OF PRESENT ILLNESS: Patient tolerating tube feeds at 60 mL per hour. No abdominal pain. Patient appears comfortable. He had been having liquidy bowel movements. Afebrile PHYSICAL EXAM: VITAL SIGNS: Reviewed. GENERAL: Well-developed in no acute distress. ABDOMEN: Soft. distended. Nontender. PEG tube in place NEUROLOGIC: Alert and oriented. Cranial nerves II through XII grossly intact. ASSESSMENT: 1. Constipation 2. Abdominal distention 3. Suspect colonic ileus PLAN: -Continue laxatives -Continue tube feeds Physician Optometrist/Practice Owner note has been reviewed by physician. Signing provider agrees with the documented findings, assessment, and plan of care. I have personally seen and examined the patient, reviewed the DIRECTOR GEOTHERMAL OPERATIONS /PAs history, exam and MDM and agree with the assessment and plan as written. Based on total visit time, I have performed more than 50% of the visit. As above: Patient comfortable. No abdominal pain or tenderness. Mild distent ion. Recheck x-rays tomorrow to assess degree of constipation. Continue stool softeners. Objective - Vital Signs Vital signs: Vital Signs Temp 98.8 F 09/18/23 04:00 Pulse 88 09/18/23 09:51 Resp 18 09/18/23 09:51 BP 132/82 09/18/23 09:51 Pulse Ox 99 09/18/23 09:51 FiO2 Intake & Output 09/17/23 09/18/23 09/18/23 18:59 06:59 18:59 Output Total 601 450 Balance -601 -450 Weight 86.5 kg Output: Urine 600 450 Urine/Stool Mix 1 Other: Voiding Method Indwelling Catheter Indwelling Catheter # Bowel Movements 1 1 - Labs CBC & Chem 7: 09/17/23 11:37 09/18/23 06:12 Labs: Abnormal Lab Results - Last 24 Hours (Table) 09/17/23 09/17/23 09/17/23 Range/Units 10:41 11:37 12:14 Hgb 12.2 L (13.0-17.5) gm/dL Hct 38.7 L (39.0-53.0) % RDW 17.9 H (11.5-15.5) % Lymphocytes # 0.7 L (1.0-4.8) k/uL Chloride 108 H (98-107) mmol/L Carbon Dioxide (22-30) mmol/L Creatinine 0.65 L (0.66-1.25) mg/dL Glucose 109 H (74-99) mg/dL POC Glucose (mg/dL) 116 H (70-110) mg/dL Calcium 8.3 L (8.4-10.2) mg/dL 09/17/23 09/17/23 09/18/23 Range/Units 18:11 23:46 06:06 Hgb (13.0-17.5) gm/dL Hct (39.0-53.0) % RDW (11.5-15.5) % Lymphocytes # (1.0-4.8) k/uL Chloride (98-107) mmol/L Carbon Dioxide (22-30) mmol/L Creatinine (0.66-1.25) mg/dL Glucose (74-99) mg/dL POC Glucose (mg/dL) 111 H 120 H 111 H (70-110) mg/dL Calcium (8.4-10.2) mg/dL 09/18/23 Range/Units 06:12 Hgb (13.0-17.5) gm/dL Hct (39.0-53.0) % RDW (11.5-15.5) % Lymphocytes # (1.0-4.8) k/uL Chloride 108 H (98-107) mmol/L Carbon Dioxide 19 L (22-30) mmol/L Creatinine 0.65 L (0.66-1.25) mg/dL Glucose 118 H (74-99) mg/dL POC Glucose (mg/dL) (70-110) mg/dL Calcium (8.4-10.2) mg/dL
--- NOTE | 2023-09-18 11:32 | P.PN ---
Subjective Patient is seen for follow-up for hypernatremia. Currently maintained on half normal saline. Serum sodium at 139 today . Free water was increased increased with tube feedings. Objective - Vital Signs Vital signs: Vital Signs Temp 98.8 F 09/18/23 04:00 Pulse 88 09/18/23 11:07 Resp 18 09/18/23 11:07 BP 132/82 09/18/23 09:51 Pulse Ox 99 09/18/23 09:51 FiO2 Intake & Output 09/17/23 09/18/23 09/18/23 18:59 06:59 18:59 Output Total 601 450 Balance -601 -450 Weight 86.5 kg Output: Urine 600 450 Urine/Stool Mix 1 Other: Voiding Method Indwelling Catheter Indwelling Catheter Indwelling Catheter # Bowel Movements 1 1 - Exam patient is awake. He does not communicate much. Examination of the heart S1 and S2 Examination of the lungs bilateral breath sounds are heard Abdomen is soft nontender No edema noted in the lower extremities Patient does not move his extremities much. Possible contracture noted on the left upper extremity - Labs CBC & Chem 7: 09/17/23 11:37 09/18/23 06:12 Labs: Abnormal Lab Results - Last 24 Hours (Table) 09/17/23 09/17/23 09/17/23 Range/Units 11:37 12:14 18:11 Hgb 12.2 L (13.0-17.5) gm/dL Hct 38.7 L (39.0-53.0) % RDW 17.9 H (11.5-15.5) % Lymphocytes # 0.7 L (1.0-4.8) k/uL Chloride (98-107) mmol/L Carbon Dioxide (22-30) mmol/L Creatinine (0.66-1.25) mg/dL Glucose (74-99) mg/dL POC Glucose (mg/dL) 116 H 111 H (70-110) mg/dL 09/17/23 09/18/23 09/18/23 Range/Units 23:46 06:06 06:12 Hgb (13.0-17.5) gm/dL Hct (39.0-53.0) % RDW (11.5-15.5) % Lymphocytes # (1.0-4.8) k/uL Chloride 108 H (98-107) mmol/L Carbon Dioxide 19 L (22-30) mmol/L Creatinine 0.65 L (0.66-1.25) mg/dL Glucose 118 H (74-99) mg/dL POC Glucose (mg/dL) 120 H 111 H (70-110) mg/dL Assessment and Plan Assessment: 1. Hypernatremia from lack of oral water intake. Improved. Sodium level 139. Maintained on half normal saline at 50 mL an hour and free water down feeding tube. 2. History of MS. 3. History of neurogenic bladder with chronic Stein catheter. 4. Dysphagia. Has PEG tube. Plan: DC IV fluids Continue with free water down feeding tube.
[2023-09-18 11:53] LABS: Glucose,Whole Blood 138 mg/dL (70-110)
[2023-09-18 18:21] LABS: Glucose,Whole Blood 116 mg/dL (70-110)
[2023-09-18] MEDS: ATORVASTATIN 40 MG TAB PEG/G-TUBE SCH (21:12)
[2023-09-18 22:51] LABS: Glucose,Whole Blood 85 mg/dL (70-110)
[2023-09-19] MEDS: IPRATROPIUM-ALBUTEROL 3 ML NEB INHALATION SCH ×6 (00:22→21:44)
[2023-09-19 05:00] LABS: Glucose,Whole Blood 99 mg/dL (70-110)
[2023-09-19] MEDS: BACLOFEN 10 MG TAB PEG/G-TUBE SCH ×3 (05:45→20:36)
[2023-09-19] MEDS: oxyBUTYnin chloride 5 MG TAB PEG/G-TUBE SCH ×3 (05:45→20:36)
--- NOTE | 2023-09-19 07:22 | XR ---
EXAMINATION TYPE: XR abdomen 2V DATE OF EXAM: 09/19/2023 6:44 AM CLINICAL INDICATION:Male, 63 years old with history of Follow-up constipation; [facility] COMPARISON: 09/17/2023. TECHNIQUE: Two views of the abdomen were obtained. FINDINGS: There is a large amount stool throughout the colon predominantly in the left upper quadrant . Gaseous distention of bowel in the lower abdomen. Present significantly changed from 09/17/2023. Th e bowel gas pattern is nonspecific without dilated loops of small or large bowel. There is no evidenc e for organomegaly or pneumoperitoneum. The osseous structures are intact. No abnormal calcificatio ns are present. Fecal material and gas are demonstrated throughout the colon and rectum. Chronic def ormity to the left femoral head. IMPRESSION: Large stool burden throughout the colon. Not significantly changed from 09/17/2023.
[2023-09-19] MEDS: METOPROLOL TARTRATE 50 MG TAB PEG/G-TUBE SCH ×2 (08:56→20:36)
[2023-09-19] MEDS: ASPIRIN 81 MG PEG/G-TUBE SCH (08:56)
[2023-09-19] MEDS: LACOSAMIDE 50 MG TABLET PEG/G-TUBE SCH ×2 (08:56→20:36)
[2023-09-19] MEDS: LACTULOSE 20 GM/30 ML CUP PEG/G-TUBE SCH ×3 (08:56→20:36)
[2023-09-19] MEDS: FAMOTIDINE 20 MG TAB PEG/G-TUBE SCH (08:56)
[2023-09-19] MEDS: polyethylene glycoL 3350 17 GM POWD.PACK PO SCH (08:57)
[2023-09-19] MEDS: bisacodyL 10 MG SUPP RECTAL SCH (08:57)
[2023-09-19] MEDS: CEFDINIR ORAL SUSP 1,500 MG/60 ML BOTTLE PEG/G-TUBE SCH ×2 (09:08→20:37)
[2023-09-19] MEDS: SCOPOLAMINE 1 MG/72 HR PATCH TRANSDERM SCH (10:06)
[2023-09-19 10:38] LABS: African American GFR (CKD) >90 (>60 ml/min/1.73 sqM); Anion Gap 10 mmol/L; Blood Urea Nitrogen 16 mg/dL (9-20); Calcium 8.4 mg/dL (8.4-10.2); Carbon Dioxide 26 mmol/L (22-30); Chloride 104 mmol/L (98-107); Glucose 104 mg/dL (74-99); Non-African American GFR(CKD) >90 (>60 ml/min/1.73 sqM); Potassium 4.1 mmol/L (3.5-5.1); Sodium 140 mmol/L (137-145)
--- NOTE | 2023-09-19 11:25 | P.PN ---
Subjective Patient is seen for follow-up for hypernatremia. Currently off of IV fluids and maintained on free water down the feeding tube. Free water was increased increased with tube feedings. Sodium at 140 today. Objective - Vital Signs Vital signs: Vital Signs Temp 98.4 F 09/19/23 08:53 Pulse 90 09/19/23 09:37 Resp 16 09/19/23 09:37 BP 143/84 09/19/23 08:53 Pulse Ox 97 09/19/23 09:27 FiO2 Intake & Output 09/18/23 09/19/23 09/19/23 18:59 06:59 18:59 Output Total 700 Balance -700 Weight 86.5 kg Output: Urine 700 Other: Voiding Method Indwelling Catheter Indwelling Catheter Indwelling Catheter # Bowel Movements 1 1 - Exam patient is awake. He does not communicate much. Examination of the heart S1 and S2 Examination of the lungs bilateral breath sounds are heard Abdomen is soft nontender No edema noted in the lower extremities Patient does not move his extremities much. Possible contracture noted on the left upper extremity - Labs CBC & Chem 7: 09/17/23 11:37 09/19/23 10:09 Labs: Abnormal Lab Results - Last 24 Hours (Table) 09/18/23 09/18/23 09/19/23 Range/Units 11:51 18:19 10:09 Creatinine 0.65 L (0.66-1.25) mg/dL Glucose 104 H (74-99) mg/dL POC Glucose (mg/dL) 138 H 116 H (70-110) mg/dL Assessment and Plan Assessment: 1. Hypernatremia from lack of oral water intake. Improved. Sodium level 140. Off of IV fluids and maintained on free water down feeding tube. 2. History of MS. 3. History of neurogenic bladder with chronic Stein catheter. 4. Dysphagia. Has PEG tube. Plan: Continue with free water down feeding tube. Repeat sodium in a.m.
[2023-09-19] MEDS ORDERED: PEG 3350 (236 GM/BTL) + LYTES 4,000 ML BOTTLE PO ONE (11:45)
[2023-09-19 12:10] LABS: Glucose,Whole Blood 122 mg/dL (70-110)
--- NOTE | 2023-09-19 12:52 | P.PN ---
Subjective Progress Note Date: 09/19/23 CHIEF COMPLAINT: Constipation HISTORY OF PRESENT ILLNESS: Patient tolerating tube feeds at 60 mL per hour. No abdominal pain. Patient appears comfortable. He had been having liquidy bowel movements. Afebrile. Abdominal x-ray large stool burden throughout colon. Not significantly changed from 09/07/2023. PHYSICAL EXAM: VITAL SIGNS: Reviewed. GENERAL: Well-developed in no acute distress. ABDOMEN: distended. Nontender. PEG tube in place NEUROLOGIC: Alert and oriented. Cranial nerves II through XII grossly intact. ASSESSMENT: 1. Constipation 2. Abdominal distention 3. Suspect colonic ileus PLAN: -Give 1 L GoLYTELY today and 1 L of GoLYTELY tomorrow to help with constipation -Continue laxatives -Continue tube feeds Physician Teacher Ballet note has been reviewed by physician. Signing provider agrees with the documented findings, assessment, and plan of care. I have personally seen and examined the patient, reviewed the HOSPICE DIRECTOR /PAs history, exam and MDM and agree with the assessment and plan as written. Based on total visit time, I have performed more than 50% of the visit. Spine Right breast incision clean and dry 2:00 near sternal margin 48-year-old female who had a ER visit in July for right upper Begin GoLytely 1 L today and 1 L tomorrow. Objective - Vital Signs Vital signs: Vital Signs Temp 98.4 F 09/19/23 08:53 Pulse 88 09/19/23 12:39 Resp 18 09/19/23 12:39 BP 128/79 09/19/23 12:04 Pulse Ox 97 09/19/23 12:04 FiO2 Intake & Output 09/18/23 09/19/23 09/19/23 18:59 06:59 18:59 Output Total 700 Balance -700 Weight 86.5 kg Output: Urine 700 Other: Voiding Method Indwelling Catheter Indwelling Catheter Indwelling Catheter # Bowel Movements 1 1 - Labs CBC & Chem 7: 09/17/23 11:37 09/19/23 10:09 Labs: Abnormal Lab Results - Last 24 Hours (Table) 09/18/23 09/19/23 09/19/23 Range/Units 18:19 10:09 12:08 Creatinine 0.65 L (0.66-1.25) mg/dL Glucose 104 H (74-99) mg/dL POC Glucose (mg/dL) 116 H 122 H (70-110) mg/dL
[2023-09-19 13:17] VITALS: BMI 25.8
[2023-09-19 17:19] LABS: Glucose,Whole Blood 100 mg/dL (70-110)
[2023-09-19] MEDS: ATORVASTATIN 40 MG TAB PEG/G-TUBE SCH (20:37)
[2023-09-19 22:53] LABS: Glucose,Whole Blood 92 mg/dL (70-110)
--- NOTE | 2023-09-20 00:08 | P.PN ---
Subjective Progress Note Date: 09/17/23 Patient is a 63-year-old male with a past medical history of hypertension, multiple sclerosis, seizure disorder, dementia, chronic indwelling Stein catheter ,multiple urinary tract infection, dysphagia on PEG tube, neurogenic bladder. Patient is awake and alert x1 but nonverbal at baseline. Patient is a resident of a [facility] was brought to the ER for increasing lethargy. History is limited as patient is nonverbal at baseline. According to EMR, nursing staff at the facility noted and patient was more lethargic. They didn't notice any fever or chills. Patient was not complaining of any pain in any part of the body. Because of increased lethargy, patient was sent to the ER Initial lab work done in the ER showed WBC 5.6, hemoglobin 13.3, platelet count 248, sodium 155, potassium 4.2, BUNs 23, creatinine 0.73, AST 26, AST 25, troponin 0.036 UA negative for infection EKG done in the ER showed normal sinus rhythm, no acute ST segment changes or T- wave inversions seen Patient admitted to internal medicine service 09/14. Patient seen and examined. Nephrology evaluated the patient, change fluids to D5 half normal saline, patient was started on tube feeding. Patient sodium levels improved. Neurology also evaluated the patient, recommended continuation of current medications. Ordered EEG which is pending 09/15. Patient seen and examined. Nursing staff noted the patient abdominal is distended, stat abdominal x-ray ordered. Patient tolerating tube feeding. Hasn't had a bowel movement yet. No nausea vomiting 09/16. Patient seen and examined. Patient had multiple bowel movements overnight, lactulose discontinued. Does not look in acute distress. Denies any nausea or vomiting 09/17/2023 Patient is currently lying in the bed. Nonverbal. Awake alert. Continued on tube feeding and free water was added. Laboratory data showed sodium 141 potassium 4.4 chloride 108 BUN 13 and creatinine 0.65. Calcium 8.3. Patient is being followed by general surgery. Abdominal x-ray showed nonspecific abdominal. Improving appearance of mid abdominal bowel air. REVIEW OF SYSTEMS: Review of systems unobtainable, patient is nonverbal at baseline PHYSICAL EXAMINATION: GENERAL: The patient is alert alert to self, patient is chronically ill-looking HEENT: Pupils are round and equally reacting to light. EOMI. No scleral icterus. No conjunctival pallor. Normocephalic, atraumatic. No pharyngeal erythema. No thyromegaly. CARDIOVASCULAR: S1 and S2 present. No murmurs, rubs, or gallops. PULMONARY: Chest is clear to auscultation, no wheezing or crackles. ABDOMEN: Soft, normoactive bowel sounds. No palpable organomegaly. PEG tube seen MUSCULOSKELETAL: No joint swelling or deformity. EXTREMITIES: No cyanosis, clubbing, or pedal edema. NEUROLOGICAL:awake, alert x1. Nonverbal. Patient is bedbound. SKIN: No rashes. Assessment and plan Hypernatremia. improved. Acute metabolic encephalopathy Severe constipation suspect ileus. Neurogenic bladder and history of multiple urinary tract infections Multiple sclerosis at age 39. Currently patient is bedbound Seizure disorder Cognitive impairment Hypertension GERD History of DVT Dysphagia/n.p.o. on PEG tube feeding History of trigeminal neuralgia History of ESBL E. coli urinary tract infections Depression Monitor vital signs Monitor CBC Monitor CMP Seizure precautions Continue Vimpat and Tegretol EEG negative for seizure like activity Neurology following Surgery following, rContinue with lactulose. Tolerating tube feeding. Possible discharge in next 24 hours to ECF Labs and medication were reviewed.. Continue with symptomatic treatment. Resume home medication. Monitor labs and vitals. DVT and GI prophylaxis. Objective - Vital Signs Vital signs: Vital Signs Temp 98.2 F 09/17/23 09:55 Pulse 94 09/17/23 09:55 Resp 18 09/17/23 09:55 BP 111/75 09/17/23 09:55 Pulse Ox 99 09/17/23 09:55 FiO2 Intake & Output 09/16/23 09/17/23 09/17/23 18:59 06:59 18:59 Output Total 2024 450 Balance -2024 Weight 86.5 kg Output: Urine 2024 450 Other: Voiding Method Indwelling Catheter Indwelling Catheter # Bowel Movements 1 2 - Labs CBC & Chem 7: 09/17/23 11:37 09/19/23 10:09 Labs: Abnormal Lab Results - Last 24 Hours (Table) 09/16/23 09/16/23 09/16/23 Range/Units 11:55 17:51 23:51 POC Glucose (mg/dL) 133 H 132 H 115 H (70-110) mg/dL 09/17/23 Range/Units 06:00 POC Glucose (mg/dL) 111 H (70-110) mg/dL
--- NOTE | 2023-09-20 00:09 | P.PN ---
Subjective Progress Note Date: 09/18/23 Patient is a 63-year-old male with a past medical history of hypertension, multiple sclerosis, seizure disorder, dementia, chronic indwelling Stein catheter ,multiple urinary tract infection, dysphagia on PEG tube, neurogenic bladder. Patient is awake and alert x1 but nonverbal at baseline. Patient is a resident of a [facility] facility was brought to the ER for increasing lethargy. History is limited as patient is nonverbal at baseline. According to EMR, nursing staff at the facility noted and patient was more lethargic. They didn't notice any fever or chills. Patient was not complaining of any pain in any part of the body. Because of increased lethargy, patient was sent to the ER Initial lab work done in the ER showed WBC 5.6, hemoglobin 13.3, platelet count 248, sodium 155, potassium 4.2, BUNs 23, creatinine 0.73, AST 26, AST 25, troponin 0.036 UA negative for infection EKG done in the ER showed normal sinus rhythm, no acute ST segment changes or T- wave inversions seen Patient admitted to internal medicine service 09/14. Patient seen and examined. Nephrology evaluated the patient, change fluids to D5 half normal saline, patient was started on tube feeding. Patient sodium levels improved. Neurology also evaluated the patient, recommended continuation of current medications. Ordered EEG which is pending 09/15. Patient seen and examined. Nursing staff noted the patient abdominal is distended, stat abdominal x-ray ordered. Patient tolerating tube feeding. Hasn't had a bowel movement yet. No nausea vomiting 09/16. Patient seen and examined. Patient had multiple bowel movements overnight, lactulose discontinued. Does not look in acute distress. Denies any nausea or vomiting 09/17/2023 Patient is currently lying in the bed. Nonverbal. Awake alert. Continued on tube feeding and free water was added. Laboratory data showed sodium 141 potassium 4.4 chloride 108 BUN 13 and creatinine 0.65. Calcium 8.3. Patient is being followed by general surgery. Abdominal x-ray showed nonspecific abdominal. Improving appearance of mid abdominal bowel air. 09/18/2023 Patient is currently lying in bed. Overall condition remains the same. Abdominal distention is much improved. Patient is tolerating tube feeding. Has been having liquid bowel movements. Patient is being continued on lactulose. Otherwise laboratory test showed sodium 139 potassium 5.0 chloride 108 bicarb is 19 BUN 16 and creatinine 0.65 and blood sugar is 108. IV fluids on hold. Nep hrology and general surgery is on board. REVIEW OF SYSTEMS: Review of systems unobtainable, patient is nonverbal at baseline PHYSICAL EXAMINATION: GENERAL: The patient is alert alert to self, patient is chronically ill-looking HEENT: Pupils are round and equally reacting to light. EOMI. No scleral icterus. No conjunctival pallor. Normocephalic, atraumatic. No pharyngeal erythema. No thyromegaly. CARDIOVASCULAR: S1 and S2 present. No murmurs, rubs, or gallops. PULMONARY: Chest is clear to auscultation, no wheezing or crackles. ABDOMEN: Soft, normoactive bowel sounds. No palpable organomegaly. PEG tube seen MUSCULOSKELETAL: No joint swelling or deformity. EXTREMITIES: No cyanosis, clubbing, or pedal edema. NEUROLOGICAL:awake, alert x1. Nonverbal. Patient is bedbound. SKIN: No rashes. Assessment and plan Hypernatremia. improved. Acute metabolic encephalopathy Severe constipation suspect ileus. Neurogenic bladder and history of multiple urinary tract infections Multiple sclerosis at age 39. Currently patient is bedbound Seizure disorder Cognitive impairment Hypertension GERD History of DVT Dysphagia/n.p.o. on PEG tube feeding History of trigeminal neuralgia History of ESBL E. coli urinary tract infections Depression Monitor vital signs Monitor CBC Monitor CMP Seizure precautions Continue Vimpat and Tegretol EEG negative for seizure like activity Neurology following Surgery following, rContinue with lactulose. Tolerating tube feeding. Possible discharge in next 24 hours to ECF Labs and medication were reviewed.. Continue with symptomatic treatment. Resume home medication. Monitor labs and vitals. DVT and GI prophylaxis. Objective - Vital Signs Vital signs: Vital Signs Temp 98.5 F 09/18/23 19:58 Pulse 84 09/18/23 21:25 Resp 18 09/18/23 19:58 BP 140/77 09/18/23 19:58 Pulse Ox 95 09/18/23 19:58 FiO2 Intake & Output 09/18/23 09/18/23 09/19/23 06:59 18:59 06:59 Output Total 450 425 Balance -450 -425 Weight 86.5 kg Output: Urine 450 425 Other: Voiding Method Indwelling Catheter Indwelling Catheter Indwelling Catheter # Bowel Movements 1 1 1 - Labs CBC & Chem 7: 12/18/23 11:37 09/19/23 10:09 Labs: Abnormal Lab Results - Last 24 Hours (Table) 09/17/23 09/18/23 09/18/23 Range/Units 23:46 06:06 06:12 Chloride 108 H (98-107) mmol/L Carbon Dioxide 19 L (22-30) mmol/L Creatinine 0.65 L (0.66-1.25) mg/dL Glucose 118 H (74-99) mg/dL POC Glucose (mg/dL) 120 H 111 H (70-110) mg/dL 09/18/23 09/18/23 Range/Units 11:51 18:19 Chloride (98-107) mmol/L Carbon Dioxide (22-30) mmol/L Creatinine (0.66-1.25) mg/dL Glucose (74-99) mg/dL POC Glucose (mg/dL) 138 H 116 H (70-110) mg/dL
--- NOTE | 2023-09-20 00:11 | P.PN ---
Subjective Progress Note Date: 09/19/23 Patient is a 63-year-old male with a past medical history of hypertension, multiple sclerosis, seizure disorder, dementia, chronic indwelling Stein catheter ,multiple urinary tract infection, dysphagia on PEG tube, neurogenic bladder. Patient is awake and alert x1 but nonverbal at baseline. [facility] was brought to the ER for increasing lethargy. History is limited as patient is nonverbal at baseline. According to EMR, nursing staff at the facility noted and patient was more lethargic. They didn't notice any fever or chills. Patient was not complaining of any pain in any part of the body. Because of increased lethargy, patient was sent to the ER Initial lab work done in the ER showed WBC 5.6, hemoglobin 13.3, platelet count 248, sodium 155, potassium 4.2, BUNs 23, creatinine 0.73, AST 26, AST 25, troponin 0.036 UA negative for infection EKG done in the ER showed normal sinus rhythm, no acute ST segment changes or T- wave inversions seen Patient admitted to internal medicine service 09/14. Patient seen and examined. Nephrology evaluated the patient, change fluids to D5 half normal saline, patient was started on tube feeding. Patient sodium levels improved. Neurology also evaluated the patient, recommended continuation of current medications. Ordered EEG which is pending 09/15. Patient seen and examined. Nursing staff noted the patient abdominal is distended, stat abdominal x-ray ordered. Patient tolerating tube feeding. Hasn't had a bowel movement yet. No nausea vomiting 09/16. Patient seen and examined. Patient had multiple bowel movements overnight, lactulose discontinued. Does not look in acute distress. Denies any nausea or vomiting 09/17/2023 Patient is currently lying in the bed. Nonverbal. Awake alert. Continued on tube feeding and free water was added. Laboratory data showed sodium 141 potassium 4.4 chloride 108 BUN 13 and creatinine 0.65. Calcium 8.3. Patient is being followed by general surgery. Abdominal x-ray showed nonspecific abdominal. Improving appearance of mid abdominal bowel air. 09/18/2023 Patient is currently lying in bed. Overall condition remains the same. Abdominal distention is much improved. Patient is tolerating tube feeding. Has been having liquid bowel movements. Patient is being continued on lactulose. Otherwise laboratory test showed sodium 139 potassium 5.0 chloride 108 bicarb is 19 BUN 16 and creatinine 0.65 and blood sugar is 108. IV fluids on hold. Nep hrology and general surgery is on board. 09/19/2023 Patient is resting in the bed. Awake alert. Nonverbal at baseline. Patient is tolerating oral diet. Abdominal distention is also better. Patient has been having liquidy bowel meds. Abdominal x-ray done today showed large stool burden throughout the colon. Not significantly changed from 09/17/2023. Patient was given 1 dose of GoLytely today. The patient is afebrile. No vomiting. Laboratory data showed sodium 140 potassium 4.1 chloride 104 bicarb is 26 BUN 16 creatinine 0.6 and blood sugar is 104. REVIEW OF SYSTEMS: Review of systems unobtainable, patient is nonverbal at baseline PHYSICAL EXAMINATION: GENERAL: The patient is alert alert to self, patient is chronically ill-looking HEENT: Pupils are round and equally reacting to light. EOMI. No scleral icterus. No conjunctival pallor. Normocephalic, atraumatic. No pharyngeal erythema. No thyromegaly. CARDIOVASCULAR: S1 and S2 present. No murmurs, rubs, or gallops. PULMONARY: Chest is clear to auscultation, no wheezing or crackles. ABDOMEN: Soft, normoactive bowel sounds. No palpable organomegaly. PEG tube seen MUSCULOSKELETAL: No joint swelling or deformity. EXTREMITIES: No cyanosis, clubbing, or pedal edema. NEUROLOGICAL:awake, alert x1. Nonverbal. Patient is bedbound. SKIN: No rashes. Assessment and plan Hypernatremia. improved. Acute metabolic encephalopathy Severe constipation suspect ileus. Neurogenic bladder and history of multiple urinary tract infections Multiple sclerosis at age 39. Currently patient is bedbound Seizure disorder Cognitive impairment Hypertension GERD History of DVT Dysphagia/n.p.o. on PEG tube feeding History of trigeminal neuralgia History of ESBL E. coli urinary tract infections Depression Monitor vital signs Monitor CBC Monitor CMP Seizure precautions Continue Vimpat and Tegretol EEG negative for seizure like activity Neurology following Surgery following, rContinue with lactulose. Tolerating tube feeding. GoLytely x 1 today Possible discharge in next 24 hours to ECF Labs and medication were reviewed.. Continue with symptomatic treatment. Resume home medication. Monitor labs and vitals. DVT and GI prophylaxis. Objective - Vital Signs Vital signs: Vital Signs Temp 98.4 F 09/19/23 08:53 Pulse 84 09/19/23 17:07 Resp 18 09/19/23 17:07 BP 121/78 09/19/23 15:39 Pulse Ox 97 09/19/23 15:39 FiO2 Intake & Output 09/19/23 09/19/23 09/20/23 06:59 18:59 06:59 Output Total 700 450 Balance -700 -450 Weight 86.5 kg 86.5 kg Output: Urine 700 450 Other: Voiding Method Indwelling Catheter Indwelling Catheter # Bowel Movements 1 2 - Labs CBC & Chem 7: 09/17/23 11:37 09/19/23 10:09 Labs: Abnormal Lab Results - Last 24 Hours (Table) 09/19/23 09/19/23 Range/Units 10:09 12:08 Creatinine 0.65 L (0.66-1.25) mg/dL Glucose 104 H (74-99) mg/dL POC Glucose (mg/dL) 122 H (70-110) mg/dL
[2023-09-20] MEDS: IPRATROPIUM-ALBUTEROL 3 ML NEB INHALATION SCH ×6 (01:06→22:07)
[2023-09-20] MEDS: BACLOFEN 10 MG TAB PEG/G-TUBE SCH ×3 (05:23→21:16)
[2023-09-20] MEDS: oxyBUTYnin chloride 5 MG TAB PEG/G-TUBE SCH ×3 (05:23→21:16)
[2023-09-20 06:08] LABS: Glucose,Whole Blood 120 mg/dL (70-110)
[2023-09-20] MEDS ORDERED: PEG 3350 (236 GM/BTL) + LYTES 4,000 ML BOTTLE PO ONE (09:00)
[2023-09-20] MEDS: METOPROLOL TARTRATE 50 MG TAB PEG/G-TUBE SCH ×2 (09:49→21:16)
[2023-09-20] MEDS: polyethylene glycoL 3350 17 GM POWD.PACK PO SCH (09:49)
[2023-09-20] MEDS: LACOSAMIDE 50 MG TABLET PEG/G-TUBE SCH ×2 (09:49→21:16)
[2023-09-20] MEDS: LACTULOSE 20 GM/30 ML CUP PEG/G-TUBE SCH ×3 (09:49→21:18)
[2023-09-20] MEDS: ASPIRIN 81 MG PEG/G-TUBE SCH (09:49)
[2023-09-20] MEDS: FAMOTIDINE 20 MG TAB PEG/G-TUBE SCH (09:49)
[2023-09-20] MEDS: bisacodyL 10 MG SUPP RECTAL SCH (09:49)
[2023-09-20] MEDS: CEFDINIR ORAL SUSP 1,500 MG/60 ML BOTTLE PEG/G-TUBE SCH ×2 (09:52→21:26)
[2023-09-20 12:01] LABS: Glucose,Whole Blood 109 mg/dL (70-110)
--- NOTE | 2023-09-20 12:21 | P.PN ---
Subjective Progress Note Date: 09/20/23 CHIEF COMPLAINT: Constipation HISTORY OF PRESENT ILLNESS: Patient tolerating tube feeds at 60 mL per hour. No abdominal pain. Patient appears comfortable. Patient did receive 1 L of GoLYTELY yesterday. He is having liquidy bowel movements. Afebrile. PHYSICAL EXAM: VITAL SIGNS: Reviewed. GENERAL: Well-developed in no acute distress. ABDOMEN: Slightly less distended. Nontender. PEG tube in place NEUROLOGIC: Alert and oriented. Cranial nerves II through XII grossly intact. ASSESSMENT: 1. Constipation 2. Abdominal distention 3. Suspect colonic ileus PLAN: -Patient getting another 1 L of GoLYTELY today -Continue laxatives -Continue tube feeds Physician Material Manager note has been reviewed by physician. Signing provider agrees with the documented findings, assessment, and plan of care. I have personally seen and examined the patient, reviewed the JEWELRY RACKER /PAs history, exam and MDM and agree with the assessment and plan as written. Based on total visit time, I have performed more than 50% of the visit. As above: Patient more distended on exam. 500 mL of today's GoLYTELY was given. Will hold the second 500 mL dose unless significant bowel function identified. Will follow. Objective - Vital Signs Vital signs: Vital Signs Temp 98.2 F 09/20/23 09:45 Pulse 75 09/20/23 09:45 Resp 19 09/20/23 09:45 BP 132/73 09/20/23 09:45 Pulse Ox 99 09/20/23 09:45 FiO2 Intake & Output 09/19/23 09/20/23 09/20/23 18:59 06:59 18:59 Output Total 450 350 Balance -450 -350 Weight 86.5 kg Output: Urine 450 350 Other: Voiding Method Indwelling Catheter Indwelling Catheter Indwelling Catheter # Bowel Movements 2 1 - Labs CBC & Chem 7: 09/17/23 11:37 09/19/23 10:09 Labs: Abnormal Lab Results - Last 24 Hours (Table) 09/20/23 Range/Units 06:07 POC Glucose (mg/dL) 120 H (70-110) mg/dL
--- NOTE | 2023-09-20 13:29 | P.PN ---
Subjective Patient is seen for follow-up for hypernatremia. Currently off of IV fluids and maintained on free water down the feeding tube. Free water was increased increased with tube feedings. Sodium at 140 yesterday. Labs are pending from today. Objective - Vital Signs Vital signs: Vital Signs Temp 98.2 F 09/20/23 09:45 Pulse 75 09/20/23 09:45 Resp 19 09/20/23 09:45 BP 132/73 09/20/23 09:45 Pulse Ox 99 09/20/23 09:45 FiO2 Intake & Output 09/19/23 09/20/23 09/20/23 18:59 06:59 18:59 Output Total 450 350 Balance -450 -350 Weight 86.5 kg Output: Urine 450 350 Other: Voiding Method Indwelling Catheter Indwelling Catheter Indwelling Catheter # Bowel Movements 2 1 - Exam patient is awake. He does not communicate much. Examination of the heart S1 and S2 Examination of the lungs bilateral breath sounds are heard Abdomen is soft nontender No edema noted in the lower extremities Patient does not move his extremities much. Possible contracture noted on the left upper extremity - Labs CBC & Chem 7: 09/17/23 11:37 09/19/23 10:09 Labs: Abnormal Lab Results - Last 24 Hours (Table) 09/20/23 Range/Units 06:07 POC Glucose (mg/dL) 120 H (70-110) mg/dL Assessment and Plan Assessment: 1. Hypernatremia from lack of oral water intake. Improved. Sodium level 140. Off of IV fluids and maintained on free water down feeding tube. 2. History of MS. 3. History of neurogenic bladder with chronic Stein catheter. 4. Dysphagia. Has PEG tube. Plan: Continue with free water down feeding tube. Follow-up on repeat labs from today
--- NOTE | 2023-09-20 15:21 | P.PN ---
Subjective Progress Note Date: 09/20/23 Patient is a 63-year-old male with a past medical history of hypertension, multiple sclerosis, seizure disorder, dementia, chronic indwelling Stein catheter ,multiple urinary tract infection, dysphagia on PEG tube, neurogenic bladder. Patient is awake and alert x1 but nonverbal at baseline. Patient is a resident of a correction facility was brought to the ER for increasing lethargy. History is limited as patient is nonverbal at baseline. According to EMR, nursing staff at the facility noted and patient was more lethargic. They didn't notice any fever or chills. Patient was not complaining of any pain in any part of the body. Because of increased lethargy, patient was sent to the ER Initial lab work done in the ER showed WBC 5.6, hemoglobin 13.3, platelet count 248, sodium 155, potassium 4.2, BUNs 23, creatinine 0.73, AST 26, AST 25, troponin 0.036 UA negative for infection EKG done in the ER showed normal sinus rhythm, no acute ST segment changes or T- wave inversions seen Patient admitted to internal medicine service 09/14. Patient seen and examined. Nephrology evaluated the patient, change fluids to D5 half normal saline, patient was started on tube feeding. Patient sodium levels improved. Neurology also evaluated the patient, recommended continuation of current medications. Ordered EEG which is pending 09/15. Patient seen and examined. Nursing staff noted the patient abdominal is distended, stat abdominal x-ray ordered. Patient tolerating tube feeding. Hasn 't had a bowel movement yet. No nausea vomiting 09/16. Patient seen and examined. Patient had multiple bowel movements overnight, lactulose discontinued. Does not look in acute distress. Denies any nausea or vomiting 09/17/2023 Patient is currently lying in the bed. Nonverbal. Awake alert. Continued on tube feeding and free water was added. Laboratory data showed sodium 141 potassium 4.4 chloride 108 BUN 13 and creatinine 0.65. Calcium 8.3. Patient is being followed by general surgery. Abdominal x-ray showed nonspecific abdominal. Improving appearance of mid abdominal bowel air. 09/18/2023 Patient is currently lying in bed. Overall condition remains the same. Abdominal distention is much improved. Patient is tolerating tube feeding. Has been having liquid bowel movements. Patient is being continued on lactulose. Otherwise laboratory test showed sodium 139 potassium 5.0 chloride 108 bicarb is 19 BUN 16 and creatinine 0.65 and blood sugar is 108. IV fluids on hold. N ephrology and general surgery is on board. 09/19/2023 Patient is resting in the bed. Awake alert. Nonverbal at baseline. Patient is tolerating oral diet. Abdominal distention is also better. Patient has been having liquidy bowel meds. Abdominal x-ray done today showed large stool burden throughout the colon. Not significantly changed from 09/17/2023. Patient was given 1 dose of GoLytely today. The patient is afebrile. No vomiting. Laboratory data showed sodium 140 potassium 4.1 chloride 104 bicarb is 26 BUN 16 creatinine 0.6 and blood sugar is 104. 09/20/2023 Patient is currently sitting up in bed awake, alert and oriented at baseline and is nonverbal although does I tract. Patient currently receiving GoLYTELY another liter per surgery recommendations for continued large amounts of stool noted. Patient's abdomen is distended. Per nursing staff patient has had bowel movements and have been all liquid. Recommend monitoring overnight for bowel movements with possible discharge planning back to ECF in 24 hours. Patient is maintained on tube feeds and tolerating. Recommend aspiration cautions and head of the bed elevated 30-45 at all times. Nephrology following as well for hypernatremia and no new labs drawn today, yesterday's was 140 and will follow- up with repeat labs. Patient is afebrile and off IV fluids continuing with free water flushes. Vital signs are stable. Social work following and plan is to return to ecf in [place] where he resides REVIEW OF SYSTEMS: Review of systems unobtainable, patient is nonverbal at baseline PHYSICAL EXAMINATION: GENERAL: The patient is alert alert to self, patient is chronically ill-looking HEENT: Pupils are round and equally reacting to light. EOMI. No scleral icterus. No conjunctival pallor. Normocephalic, atraumatic. No pharyngeal erythema. No thyromegaly. CARDIOVASCULAR: S1 and S2 present. No murmurs, rubs, or gallops. PULMONARY: Chest is clear to auscultation, no wheezing or crackles. ABDOMEN: Soft, normoactive bowel sounds. No palpable organomegaly. Mildly distended PEG tube noted and patent MUSCULOSKELETAL: No joint swelling or deformity. EXTREMITIES: No cyanosis, clubbing, or pedal edema. NEUROLOGICAL:awake, alert x1. Nonverbal. Patient is bedbound. SKIN: No rashes. Assessment: Hypernatremia. improved. Acute metabolic encephalopathy Severe constipation suspect ileus. Neurogenic bladder and history of multiple urinary tract infections Multiple sclerosis at age 39. Currently patient is bedbound Seizure disorder Cognitive impairment Hypertension GERD History of DVT Dysphagia/n.p.o. on PEG tube feeding History of trigeminal neuralgia History of ESBL E. coli urinary tract infections Depression GI prophylaxis DVT prophylaxis Full code Plan: Patient did receive 1 L of GoLYTELY and having loose bowel movements per nursing staff with general surgery following. Patient received another 500 of GoLYTELY today via PEG tube and abdomen is more distended and surgery recommending holding any further GoLYTELY at this time and monitoring. Monitor intake and output and patient is continued on tube feeds Will follow-up with repeat labs as they are pending from today to follow-up on sodium nephrology following for hypernatremia and yesterday's was 140 and improving awaiting today's labs Continue with aspiration precautions and head of the bed elevated 45 at all times. Patient chronically remains nothing by mouth Patient is to return to [facility] on discharge where he resides Due to multiple complex medical issues, prognosis is guarded Possible discharge in the next 24 hours The impression and plan of care has been dictated by Paula Ruiz, Nurse Practitioner as directed. Dr. Kim MD I have performed a history and examination and MDM of this patient, discussed the same with the dictator, and agree with the dictator's assessment and plan as written ,documented as a scribe. Based on total visit time, I have performed more than 50% of the visit. Objective - Vital Signs Vital signs: Vital Signs Temp 98.2 F 09/20/23 09:45 Pulse 64 09/20/23 12:20 Resp 18 09/20/23 12:20 BP 147/89 09/20/23 12:20 Pulse Ox 96 09/20/23 12:20 FiO2 Intake & Output 09/19/23 09/20/23 09/20/23 18:59 06:59 18:59 Output Total 450 350 Balance -450 -350 Weight 86.5 kg Output: Urine 450 350 Other: Voiding Method Indwelling Catheter Indwelling Catheter Indwelling Catheter # Bowel Movements 2 1 - Labs CBC & Chem 7: 09/17/23 11:37 09/19/23 10:09 Labs: Abnormal Lab Results - Last 24 Hours (Table) 09/20/23 Range/Units 06:07 POC Glucose (mg/dL) 120 H (70-110) mg/dL
[2023-09-20 15:23] LABS: Anisocytosis Slight; Basophils % (A) 0 %; Eosinophils # (A) 0.4 k/uL (0-0.7); Eosinophils % (A) 6 %; HCT 40.8 % (39.0-53.0); HGB 12.8 gm/dL (13.0-17.5); Hypochromasia Moderate; Lymphocytes # (A) 1.1 k/uL (1.0-4.8); Lymphocytes % (A) 17 %; MCH 25.2 pg (25.0-35.0); MCHC 31.3 g/dL (31.0-37.0); MCV 80.5 fL (80.0-100.0); Mean Platelet Volume 8.9; Microcytosis Slight; Monocytes # (A) 0.4 k/uL (0-1.0); Monocytes % (A) 6 %; Neutrophils # (A) 4.5 k/uL (1.3-7.7); Neutrophils % (A) 68 %; Platelet Count 242 k/uL (150-450); RBC 5.07 m/uL (4.30-5.90); RDW 17.6 % (11.5-15.5); WBC 6.6 k/uL (3.8-10.6)
[2023-09-20 15:54] LABS: African American GFR (CKD) >90 (>60 ml/min/1.73 sqM); Anion Gap 13 mmol/L; Blood Urea Nitrogen 15 mg/dL (9-20); Calcium 8.5 mg/dL (8.4-10.2); Carbon Dioxide 21 mmol/L (22-30); Chloride 105 mmol/L (98-107); Glucose 101 mg/dL (74-99); Non-African American GFR(CKD) >90 (>60 ml/min/1.73 sqM); Potassium 4.3 mmol/L (3.5-5.1); Sodium 139 mmol/L (137-145)
[2023-09-20 18:04] LABS: Glucose,Whole Blood 99 mg/dL (70-110)
[2023-09-20] MEDS ORDERED: ZINC OXIDE PASTE (Z-GUARD) 1 APPLIC APPLIC TOPICAL PRN (18:32)
[2023-09-20] MEDS: ATORVASTATIN 40 MG TAB PEG/G-TUBE SCH (21:16)
[2023-09-21 00:07] LABS: Glucose,Whole Blood 104 mg/dL (70-110)
[2023-09-21] MEDS: IPRATROPIUM-ALBUTEROL 3 ML NEB INHALATION SCH ×7 (01:22→23:58)
[2023-09-21] MEDS: BACLOFEN 10 MG TAB PEG/G-TUBE SCH ×3 (05:08→20:09)
[2023-09-21] MEDS: oxyBUTYnin chloride 5 MG TAB PEG/G-TUBE SCH ×3 (05:08→20:08)
[2023-09-21 06:01] LABS: Glucose,Whole Blood 111 mg/dL (70-110)
[2023-09-21] MEDS: bisacodyL 10 MG SUPP RECTAL SCH (09:25)
[2023-09-21] MEDS: LACTULOSE 20 GM/30 ML CUP PEG/G-TUBE SCH ×3 (09:25→20:10)
[2023-09-21] MEDS: ASPIRIN 81 MG PEG/G-TUBE SCH (09:25)
[2023-09-21] MEDS: polyethylene glycoL 3350 17 GM POWD.PACK PO SCH (09:25)
[2023-09-21] MEDS: LACOSAMIDE 50 MG TABLET PEG/G-TUBE SCH ×2 (09:25→20:08)
[2023-09-21] MEDS: METOPROLOL TARTRATE 50 MG TAB PEG/G-TUBE SCH ×2 (09:25→20:09)
[2023-09-21] MEDS: FAMOTIDINE 20 MG TAB PEG/G-TUBE SCH (09:25)
--- NOTE | 2023-09-21 11:41 | XR ---
EXAMINATION TYPE: XR abdomen 2V DATE OF EXAM: 09/21/2023 COMPARISON: 09/19/2023 HISTORY: 63-year-old male follow-up abdominal distention and constipation FINDINGS: Lung bases are clear. No evidence for free intraperitoneal air. PEG tube noted. Gassy colon is present throughout. Colon dilated up to 8.9 cm versus 8.5 cm, previously. Pelvic phleb oliths. No dilated small bowel or air-fluid levels are seen. Possible Stein catheter. Chronic nonunited left femoral neck fracture. IMPRESSION: Ongoing pancolonic gaseous distention measuring up to 8.9 cm versus 8.5 cm, previously.
[2023-09-21 11:50] LABS: Glucose,Whole Blood 93 mg/dL (70-110)
--- NOTE | 2023-09-21 11:55 | P.PN ---
Subjective Patient is seen for follow-up for hypernatremia. Currently off of IV fluids and maintained on free water down the feeding tube. Free water was increased increased with tube feedings. Sodium at 139 yesterday. Labs are pending from today. Objective - Vital Signs Vital signs: Vital Signs Temp 98.1 F 09/21/23 07:54 Pulse 90 09/21/23 11:46 Resp 20 09/21/23 09:47 BP 150/90 09/21/23 07:54 Pulse Ox 99 09/21/23 07:54 FiO2 Intake & Output 09/20/23 09/21/23 09/21/23 18:59 06:59 18:59 Output Total 325 650 Balance -325 -650 Output: Urine 325 650 Other: Voiding Method Indwelling Catheter Indwelling Catheter Indwelling Catheter # Bowel Movements 3 - Exam patient is awake. He does not communicate much. Examination of the heart S1 and S2 Examination of the lungs bilateral breath sounds are heard Abdomen is soft nontender No edema noted in the lower extremities Patient does not move his extremities much. Possible contracture noted on the left upper extremity - Labs CBC & Chem 7: 09/20/23 14:36 09/20/23 14:36 Labs: Abnormal Lab Results - Last 24 Hours (Table) 09/20/23 09/20/23 09/21/23 Range/Units 14:36 14:36 05:59 Hgb 12.8 L (13.0-17.5) gm/dL RDW 17.6 H (11.5-15.5) % Carbon Dioxide 21 L (22-30) mmol/L Creatinine 0.65 L (0.66-1.25) mg/dL Glucose 101 H (74-99) mg/dL POC Glucose (mg/dL) 111 H (70-110) mg/dL Assessment and Plan Assessment: 1. Hypernatremia from lack of oral water intake. Improved. Sodium level 140. Off of IV fluids and maintained on free water down feeding tube. 2. History of MS. 3. History of neurogenic bladder with chronic Stein catheter. 4. Dysphagia. Has PEG tube. Plan: Continue with free water down feeding tube. Follow-up on repeat labs from today
--- NOTE | 2023-09-21 12:31 | P.PN ---
Subjective Progress Note Date: 09/21/23 Patient is a 63-year-old male with a past medical history of hypertension, multiple sclerosis, seizure disorder, dementia, chronic indwelling Stein catheter ,multiple urinary tract infection, dysphagia on PEG tube, neurogenic bladder. Patient is awake and alert x1 but nonverbal at baseline. Patient is a resident of a intermediate facility was brought to the ER for increasing lethargy. History is limited as patient is nonverbal at baseline. According to EMR, nursing staff at the facility noted and patient was more lethargic. They didn't notice any fever or chills. Patient was not complaining of any pain in any part of the body. Because of increased lethargy, patient was sent to the ER Initial lab work done in the ER showed WBC 5.6, hemoglobin 13.3, platelet count 248, sodium 155, potassium 4.2, BUNs 23, creatinine 0.73, AST 26, AST 25, troponin 0.036 UA negative for infection EKG done in the ER showed normal sinus rhythm, no acute ST segment changes or T- wave inversions seen Patient admitted to internal medicine service 09/14. Patient seen and examined. Nephrology evaluated the patient, change fluids to D5 half normal saline, patient was started on tube feeding. Patient sodium levels improved. Neurology also evaluated the patient, recommended continuation of current medications. Ordered EEG which is pending 09/15. Patient seen and examined. Nursing staff noted the patient abdominal is distended, stat abdominal x-ray ordered. Patient tolerating tube feeding. Hasn 't had a bowel movement yet. No nausea vomiting 09/16. Patient seen and examined. Patient had multiple bowel movements overnight, lactulose discontinued. Does not look in acute distress. Denies any nausea or vomiting 09/17/2023 Patient is currently lying in the bed. Nonverbal. Awake alert. Continued on tube feeding and free water was added. Laboratory data showed sodium 141 potassium 4.4 chloride 108 BUN 13 and creatinine 0.65. Calcium 8.3. Patient is being followed by general surgery. Abdominal x-ray showed nonspecific abdominal. Improving appearance of mid abdominal bowel air. 09/18/2023 Patient is currently lying in bed. Overall condition remains the same. Abdominal distention is much improved. Patient is tolerating tube feeding. Has been having liquid bowel movements. Patient is being continued on lactulose. Otherwise laboratory test showed sodium 139 potassium 5.0 chloride 108 bicarb is 19 BUN 16 and creatinine 0.65 and blood sugar is 108. IV fluids on hold. N ephrology and general surgery is on board. 09/19/2023 Patient is resting in the bed. Awake alert. Nonverbal at baseline. Patient is tolerating oral diet. Abdominal distention is also better. Patient has been having liquidy bowel meds. Abdominal x-ray done today showed large stool burden throughout the colon. Not significantly changed from 09/17/2023. Patient was given 1 dose of GoLytely today. The patient is afebrile. No vomiting. Laboratory data showed sodium 140 potassium 4.1 chloride 104 bicarb is 26 BUN 16 creatinine 0.6 and blood sugar is 104. 09/20/2023 Patient is currently sitting up in bed awake, alert and oriented at baseline and is nonverbal although does I tract. Patient currently receiving GoLYTELY another liter per surgery recommendations for continued large amounts of stool noted. Patient's abdomen is distended. Per nursing staff patient has had bowel movements and have been all liquid. Recommend monitoring overnight for bowel movements with possible discharge planning back to ECF in 24 hours. Patient is maintained on tube feeds and tolerating. Recommend aspiration cautions and head of the bed elevated 30-45 at all times. Nephrology following as well for hypernatremia and no new labs drawn today, yesterday's was 140 and will follow- up with repeat labs. Patient is afebrile and off IV fluids continuing with free water flushes. Vital signs are stable. Social work following and plan is to return to ecf in [place] where he resides 09/21/2023 Patient is seen in follow-up today with general surgery following underwent repeat abdominal x-ray showing ongoing pancolonic gaseous distention measuring up to 8.9 cm versus 8.5 cm previously. General surgery adding another dose of GoLYTELY and to continue having bowel movements. Patient appears quite distended on exam and is nonverbal although no guarding or rigidity noted on palpation of the abdomen. Patient continues on tube feeds and tolerating and per nursing staff is having bowel movements. Patient is afebrile with no reported chest pain or shortness of breath and is 96% on room air. Plan is for patient return to ECF once stabilized and cleared by general surgery. Given the holiday probable discharge early next week. REVIEW OF SYSTEMS: Review of systems unobtainable, patient is nonverbal at baseline PHYSICAL EXAMINATION: GENERAL: The patient is alert alert to self, patient is chronically ill-looking HEENT: Pupils are round and equally reacting to light. EOMI. No scleral icterus. No conjunctival pallor. Normocephalic, atraumatic. No pharyngeal erythema. No thyromegaly. CARDIOVASCULAR: S1 and S2 present. No murmurs, rubs, or gallops. PULMONARY: Chest is clear to auscultation, no wheezing or crackles. ABDOMEN: taut, normoactive bowel sounds. No palpable organomegaly. Mildly distended PEG tube noted and patent MUSCULOSKELETAL: No joint swelling or deformity. EXTREMITIES: No cyanosis, clubbing, or pedal edema. NEUROLOGICAL:awake, alert x1. Nonverbal. Patient is bedbound. SKIN: No rashes. Assessment: Hypernatremia. improved. Acute metabolic encephalopathy secondary to hypernatremia, improved at baseline Severe constipation suspect ileus. Neurogenic bladder and history of multiple urinary tract infections Multiple sclerosis at age 39. Currently patient is bedbound Seizure disorder Cognitive impairment Hypertension GERD History of DVT Dysphagia/n.p.o. on PEG tube feeding History of trigeminal neuralgia History of ESBL E. coli urinary tract infections Depression GI prophylaxis DVT prophylaxis Full code Plan: Patient did receive 1 L of GoLYTELY and having loose bowel movements per nursing staff with general surgery following. Patient to receive another 500 of GoLYTELY today via PEG tube as abdomen is more distended and surgery recomme nding monitoring for continued bowel movements. Follow-up abdominal x-ray continues to show distention. Follow-up labs from yesterday show a repeat sodium level of 139 and potassium is 4.3 kidney functions within normal limits and blood sugars are continuing to be monitored. Patient white count is within normal limits at 6.6. nephrology following for hypernatremia and has improved Continue with aspiration precautions and head of the bed elevated 45 at all times. Patient chronically remains nothing by mouth Patient is to return to [facility] on discharge where he resides Due to multiple complex medical issues, prognosis is guarded Possible discharge early next week given this weekend is a holiday The impression and plan of care has been dictated by Paula Ruiz, Nurse Practitioner as directed. Dr. Kim MD I have performed a history and examination and MDM of this patient, discussed the same with the dictator, and agree with the dictator's assessment and plan as written ,documented as a scribe. Based on total visit time, I have performed more than 50% of the visit. Objective - Vital Signs Vital signs: Vital Signs Temp 98.1 F 09/21/23 07:54 Pulse 73 09/21/23 12:17 Resp 17 09/21/23 12:17 BP 117/75 09/21/23 12:17 Pulse Ox 96 09/21/23 12:17 FiO2 Intake & Output 09/20/23 09/21/23 09/21/23 18:59 06:59 18:59 Output Total 325 650 Balance -325 -650 Output: Urine 325 650 Other: Voiding Method Indwelling Catheter Indwelling Catheter Indwelling Catheter # Bowel Movements 3 - Labs CBC & Chem 7: 09/20/23 14:36 09/20/23 14:36 Labs: Abnormal Lab Results - Last 24 Hours (Table) 09/20/23 09/20/23 09/21/23 Range/Units 14:36 14:36 05:59 Hgb 12.8 L (13.0-17.5) gm/dL RDW 17.6 H (11.5-15.5) % Carbon Dioxide 21 L (22-30) mmol/L Creatinine 0.65 L (0.66-1.25) mg/dL Glucose 101 H (74-99) mg/dL POC Glucose (mg/dL) 111 H (70-110) mg/dL
--- NOTE | 2023-09-21 13:12 | P.PN ---
Subjective Progress Note Date: 09/21/23 CHIEF COMPLAINT: Constipation HISTORY OF PRESENT ILLNESS: Patient's abdomen remains distended. Here he a ppears comfortable. He is tolerating tube feeds at 60 mL per hour. Yesterday he had been more distended and he'll received the 500 mL considerable full liter of GoLYTELY. Patient will receive another 500 mL GoLYTELY today. He is having bowel movements. Abdominal x-ray shows ongoing pain colonic gaseous distention measuring up to 8.9 cm versus 8.5 cm previously PHYSICAL EXAM: VITAL SIGNS: Reviewed. GENERAL: Well-developed in no acute distress. ABDOMEN: Distended. Nontender. PEG tube in place ASSESSMENT: 1. Constipation 2. Abdominal distention 3. Suspect colonic ileus PLAN: -Computed tomography scan abdomen and pelvis ordered due to worsening distention of the colon noted on abdominal xray -Continue laxatives -Continue tube feeds Physician Brewer Helper note has been reviewed by physician. Signing provider agrees with the documented findings, assessment, and plan of care. I have personally seen and examined the patient, reviewed the RESEARCH NUTRITIONIST /PAs history, exam and MDM and agree with the assessment and plan as written. Based on total visit time, I have performed more than 50% of the visit. As above: Patient still distended. He is having bowel movement however. Repeat abdominal x-ray shows increased gaseous distention. We'll order CT abdomen and pelvis. Most recent CAT scan from November shows significant rectal distention. 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 Will follow. Objective - Vital Signs Vital signs: Vital Signs Temp 98.1 F 09/21/23 07:54 Pulse 90 09/21/23 08:31 Resp 20 09/21/23 09:47 BP 150/90 09/21/23 07:54 Pulse Ox 99 09/21/23 07:54 FiO2 Intake & Output 09/20/23 09/21/23 09/21/23 18:59 06:59 18:59 Output Total 325 650 Balance -325 -650 Output: Urine 325 650 Other: Voiding Method Indwelling Catheter Indwelling Catheter Indwelling Catheter # Bowel Movements 3 - Labs CBC & Chem 7: 09/20/23 14:36 09/20/23 14:36 Labs: Abnormal Lab Results - Last 24 Hours (Table) 09/20/23 09/20/23 09/21/23 Range/Units 14:36 14:36 05:59 Hgb 12.8 L (13.0-17.5) gm/dL RDW 17.6 H (11.5-15.5) % Carbon Dioxide 21 L (22-30) mmol/L Creatinine 0.65 L (0.66-1.25) mg/dL Glucose 101 H (74-99) mg/dL POC Glucose (mg/dL) 111 H (70-110) mg/dL
--- NOTE | 2023-09-21 14:22 | CT ---
EXAMINATION: CT ABDOMEN AND PELVIS WITHOUT IV CONTRAST DATE OF EXAMINATION: 09/21/2023. COMPARISON: 05/30/2023.. INDICATION: Worsening abdominal distention. PROCEDURE: Axial CT of the abdomen and pelvis was performed with sagittal and coronal reformatted i mages without contrast enhancement. The exam is limited because some types of pathology may not be ad equately demonstrated due to lack of contrast enhancement. CT dose lowering techniques were used, to include: automated exposure control, adjustment for patient size, and/or use of iterative reconstruct ion. FINDINGS: LOWER CHEST : The minimally visualized lung bases appear clear. No definitive pleural effusions or p ericardial effusions are seen. ABDOMEN: Liver and Biliary system: The dome of the liver is not included on the evaluation. The visualized po rtions of liver are within normal limits. Adrenal glands: Normal. Kidneys and ureters: There is mild left renal atrophy. The right kidney appears unremarkable.. Spleen: Normal. Pancreas: Normal. Gallbladder: Normal. Lymph nodes, Peritoneum and mesentery: There is no mesenteric or retroperitoneal lymphadenopathy. Gastrointestinal tract: There are no dilated loops of bowel or free intraperitoneal air. . The appe ndix is normal. Some mild thickening of the sigmoid colonic wall with a moderate amount of stool seen within the rectosigmoid region. There is some distention of the colon proximal to this portion witho ut a clear obstruction as it appears clearly patent. Aorta/IVC: There is mild vascular calcification throughout the abdominal aorta without evidence of aneurysmal dilation. IVC normal. Abdominal wall: Normal. PELVIS: Fluid: There is no free fluid in the pelvis. Lymph Nodes: There is no pelvic or inguinal lymphadenopathy.. Urinary bladder: Normal. BONES: Chronic fracture of the left femoral neck is seen with some resorptive bone in this region. A infection would be difficult to exclude in this location.. ADDITIONAL SIGNIFICANT FINDINGS: None. IMPRESSION: 1. Mild area of thickening of the distal sigmoid colon with upstream air distention without obstructi ve process. A malignancy would be difficult to exclude. Direct visualization is recommended. 2. No bowel obstruction or appendicitis. 3. Left renal atrophy. 4. No renal stones, ureteral stones or hydronephrosis. 5. Chronic fracture of the left femoral neck with infection not excluded as above. The appearance is unchanged.
[2023-09-21 18:03] LABS: Glucose,Whole Blood 100 mg/dL (70-110)
[2023-09-21] MEDS: ATORVASTATIN 40 MG TAB PEG/G-TUBE SCH (20:08)
[2023-09-22 00:08] LABS: Glucose,Whole Blood 102 mg/dL (70-110)
[2023-09-22] MEDS: IPRATROPIUM-ALBUTEROL 3 ML NEB INHALATION SCH ×5 (04:09→21:09)
[2023-09-22] MEDS: BACLOFEN 10 MG TAB PEG/G-TUBE SCH ×3 (06:20→20:55)
[2023-09-22] MEDS: oxyBUTYnin chloride 5 MG TAB PEG/G-TUBE SCH ×3 (06:20→20:55)
[2023-09-22 06:25] LABS: Glucose,Whole Blood 91 mg/dL (70-110)
[2023-09-22] MEDS: polyethylene glycoL 3350 17 GM POWD.PACK PO SCH (07:46)
[2023-09-22] MEDS: FAMOTIDINE 20 MG TAB PEG/G-TUBE SCH (07:46)
[2023-09-22] MEDS: ASPIRIN 81 MG PEG/G-TUBE SCH (07:46)
[2023-09-22] MEDS: bisacodyL 10 MG SUPP RECTAL SCH (07:46)
[2023-09-22] MEDS: LACTULOSE 20 GM/30 ML CUP PEG/G-TUBE SCH ×3 (07:46→20:55)
[2023-09-22] MEDS: METOPROLOL TARTRATE 50 MG TAB PEG/G-TUBE SCH ×2 (07:46→20:55)
[2023-09-22] MEDS: LACOSAMIDE 50 MG TABLET PEG/G-TUBE SCH ×2 (07:46→20:55)
[2023-09-22] MEDS: SCOPOLAMINE 1 MG/72 HR PATCH TRANSDERM SCH (07:47)
--- NOTE | 2023-09-22 10:36 | P.PN ---
Subjective Patient is seen for follow-up for hypernatremia. Currently off of IV fluids and maintained on free water down the feeding tube. Free water was increased increased with tube feedings. Sodium at 139 on 09/20/2023. Labs are pending from today. Objective - Vital Signs Vital signs: Vital Signs Temp 97.6 F 09/22/23 07:39 Pulse 82 09/22/23 08:37 Resp 20 09/22/23 07:39 BP 125/85 09/22/23 07:39 Pulse Ox 97 09/22/23 08:27 FiO2 Intake & Output 09/21/23 09/22/23 09/22/23 18:59 06:59 18:59 Intake Total 20 Output Total 650 700 Balance -650 -680 Intake: IV 20 Invasive Line 3 20 Output: Urine 650 700 Other: Voiding Method Indwelling Catheter Indwelling Catheter Indwelling Catheter # Bowel Movements 1 1 - Exam patient is awake. He does not communicate much. Examination of the heart S1 and S2 Examination of the lungs bilateral breath sounds are heard Abdomen is soft nontender No edema noted in the lower extremities Patient does not move his extremities much. Possible contracture noted on the left upper extremity - Labs CBC & Chem 7: 09/20/23 14:36 09/20/23 14:36 Assessment and Plan Assessment: 1. Hypernatremia from lack of oral water intake. Improved. Sodium level 139 on 09/20/2023. Off of IV fluids and maintained on free water down feeding tube. 2. History of MS. 3. History of neurogenic bladder with chronic Stein catheter. 4. Dysphagia. Has PEG tube. Plan: Continue with free water down feeding tube. Check labs today
--- NOTE | 2023-09-22 11:32 | P.PN ---
Subjective Progress Note Date: 09/22/23 Patient is nonverbal. He is currently on tube feeds which will be held on Sunday at noon for bowel prep and plan colonoscopy on Sunday Objective - Vital Signs Vital signs: Vital Signs Temp 97.6 F 09/22/23 07:39 Pulse 82 09/22/23 08:37 Resp 20 09/22/23 07:39 BP 125/85 09/22/23 07:39 Pulse Ox 97 09/22/23 08:27 FiO2 Intake & Output 09/21/23 09/22/23 09/22/23 18:59 06:59 18:59 Intake Total 20 Output Total 650 700 Balance -650 -680 Intake: IV 20 Invasive Line 3 20 Output: Urine 650 700 Other: Voiding Method Indwelling Catheter Indwelling Catheter Indwelling Catheter # Bowel Movements 1 1 1 - Exam Patient nonverbal. Abdomen is soft nontender. - Labs CBC & Chem 7: 09/20/23 14:36 09/20/23 14:36 Assessment and Plan Assessment: Abdominal distention possible ileus Plan: hOld tube feeds on Sunday bowel prep on Sunday for colonoscopy on Sunday.
[2023-09-22 11:44] LABS: Glucose,Whole Blood 117 mg/dL (70-110)
[2023-09-22 13:57] LABS: African American GFR (CKD) >90 (>60 ml/min/1.73 sqM); Anion Gap 13 mmol/L; Blood Urea Nitrogen 16 mg/dL (9-20); Calcium 8.5 mg/dL (8.4-10.2); Carbon Dioxide 21 mmol/L (22-30); Chloride 105 mmol/L (98-107); Glucose 87 mg/dL (74-99); Non-African American GFR(CKD) >90 (>60 ml/min/1.73 sqM); Potassium 4.8 mmol/L (3.5-5.1); Sodium 139 mmol/L (137-145)
[2023-09-22 17:55] LABS: Glucose,Whole Blood 102 mg/dL (70-110)
[2023-09-22] MEDS: ATORVASTATIN 40 MG TAB PEG/G-TUBE SCH (20:55)
--- NOTE | 2023-09-22 21:44 | PN ---
PROGRESS NOTE DATE OF SERVICE: 09/22/2023 SUBJECTIVE: This is a 63-year-old gentleman, who was admitted with hyponatremia and multiple other medical problems; who continues to be confused. The patient also has severe constipation. Abdominal and pelvis CAT scan was done yesterday, which showed mild area of thickening of distal sigmoid colon. PAST MEDICAL HISTORY: Reviewed. REVIEW OF SYSTEMS: Could not be taken. The patient is stuporous. CURRENT MEDICATIONS: Reviewed include DuoNeb dose and rest of medications noted. PHYSICAL EXAMINATION: VITAL SIGNS: Pulse 78, blood pressure 130/78, respirations 20. CHEST: Few scattered rhonchi. ABDOMEN: Soft, nontender. No mass palpable. LEGS: No edema. NERVOUS SYSTEM: Could not be examined completely. LABORATORY DATA: Reviewed. ASSESSMENT: 1. Severe hyponatremia, present on admission. 2. Change in mental status secondary to hyponatremia. 3. History of severe constipation. 4. Some mild thickening of the distal sigmoid colon. 5. Multiple sclerosis. 6. Neurogenic bladder. 7. Dementia. 8. Hypertension. 9. GI. 10.Change in mental status, metabolic encephalopathy, multifactorial. RECOMMENDATIONS: Recommend to continue current management. Repeat labs. Otherwise, the patient apparently had scopes in 2021, we will await those reports and closely follow with multiple consultants including Surgery and further recommendations to follow. MMODL / IJN: [id number] /
[2023-09-23] LABS: Glucose,Whole Blood 110 mg/dL (70-110)
[2023-09-23] MEDS: IPRATROPIUM-ALBUTEROL 3 ML NEB INHALATION SCH ×7 (02:07→23:43)
[2023-09-23] MEDS: BACLOFEN 10 MG TAB PEG/G-TUBE SCH ×3 (06:04→21:51)
[2023-09-23] MEDS: oxyBUTYnin chloride 5 MG TAB PEG/G-TUBE SCH ×3 (06:04→21:51)
[2023-09-23 06:18] LABS: Glucose,Whole Blood 110 mg/dL (70-110)
[2023-09-23 07:52] LABS: Anisocytosis Slight; Basophils % (A) 0 %; Eosinophils # (A) 0.4 k/uL (0-0.7); Eosinophils % (A) 5 %; HCT 41.4 % (39.0-53.0); HGB 12.8 gm/dL (13.0-17.5); Hypochromasia Marked; Lymphocytes # (A) 0.7 k/uL (1.0-4.8); Lymphocytes % (A) 8 %; MCH 25.1 pg (25.0-35.0); MCHC 30.9 g/dL (31.0-37.0); MCV 81.2 fL (80.0-100.0); Mean Platelet Volume 8.8; Microcytosis Slight; Monocytes # (A) 0.5 k/uL (0-1.0); Monocytes % (A) 6 %; Neutrophils # (A) 6.8 k/uL (1.3-7.7); Neutrophils % (A) 81 %; Platelet Count 244 k/uL (150-450); RDW 17.5 % (11.5-15.5); WBC 8.5 k/uL (3.8-10.6)
[2023-09-23] MEDS: METOPROLOL TARTRATE 50 MG TAB PEG/G-TUBE SCH ×2 (08:23→21:51)
[2023-09-23] MEDS: LACTULOSE 20 GM/30 ML CUP PEG/G-TUBE SCH ×3 (08:23→21:51)
[2023-09-23] MEDS: polyethylene glycoL 3350 17 GM POWD.PACK PO SCH (08:23)
[2023-09-23] MEDS: bisacodyL 10 MG SUPP RECTAL SCH (08:23)
[2023-09-23] MEDS: FAMOTIDINE 20 MG TAB PEG/G-TUBE SCH (08:24)
[2023-09-23] MEDS: LACOSAMIDE 50 MG TABLET PEG/G-TUBE SCH ×2 (08:24→21:51)
[2023-09-23] MEDS: ASPIRIN 81 MG PEG/G-TUBE SCH (08:24)
[2023-09-23 10:32] LABS: ALT 37 U/L (4-49); AST 36 U/L (17-59); African American GFR (CKD) >90 (>60 ml/min/1.73 sqM); Albumin 3.1 g/dL (3.5-5.0); Alkaline Phosphatase 110 U/L (38-126); Anion Gap 11 mmol/L; Blood Urea Nitrogen 15 mg/dL (9-20); Calcium 8.5 mg/dL (8.4-10.2); Carbon Dioxide 23 mmol/L (22-30); Chloride 103 mmol/L (98-107); Glucose 116 mg/dL (74-99); Non-African American GFR(CKD) >90 (>60 ml/min/1.73 sqM); Potassium 4.6 mmol/L (3.5-5.1); Sodium 137 mmol/L (137-145); Total Bilirubin 0.3 mg/dL (0.2-1.3); Total Protein 6.2 g/dL (6.3-8.2)
--- NOTE | 2023-09-23 10:56 | P.PN ---
Subjective Patient is seen for follow-up for hypernatremia. Currently off of IV fluids and maintained on free water down the feeding tube. Free water was increased increased with tube feedings. Sodium at 137 today. Objective - Vital Signs Vital signs: Vital Signs Temp 98.4 F 09/23/23 08:00 Pulse 79 09/23/23 08:40 Resp 18 09/23/23 08:00 BP 122/73 09/23/23 08:00 Pulse Ox 92 L 09/23/23 08:32 FiO2 Intake & Output 09/22/23 09/23/23 09/23/23 18:59 06:59 18:59 Intake Total 10 Output Total 300 250 Balance -300 -240 Intake: IV 10 Invasive Line 4 10 Output: Urine 300 250 Other: Voiding Method Indwelling Catheter Indwelling Catheter # Bowel Movements 1 1 - Exam patient is awake. He does not communicate much. Examination of the heart S1 and S2 Examination of the lungs bilateral breath sounds are heard Abdomen is soft nontender No edema noted in the lower extremities Patient does not move his extremities much. Possible contracture noted on the left upper extremity - Labs CBC & Chem 7: 09/23/23 06:51 09/23/23 09:59 Labs: Abnormal Lab Results - Last 24 Hours (Table) 09/22/23 09/22/23 09/23/23 Range/Units 08:51 11:42 06:51 Hgb 12.8 L (13.0-17.5) gm/dL MCHC 30.9 L (31.0-37.0) g/dL RDW 17.5 H (11.5-15.5) % Lymphocytes # 0.7 L (1.0-4.8) k/uL Carbon Dioxide 21 L (22-30) mmol/L Glucose (74-99) mg/dL POC Glucose (mg/dL) 117 H (70-110) mg/dL Total Protein (6.3-8.2) g/dL Albumin (3.5-5.0) g/dL 09/23/23 Range/Units 06:51 Hgb (13.0-17.5) gm/dL MCHC (31.0-37.0) g/dL RDW (11.5-15.5) % Lymphocytes # (1.0-4.8) k/uL Carbon Dioxide (22-30) mmol/L Glucose 116 H (74-99) mg/dL POC Glucose (mg/dL) (70-110) mg/dL Total Protein 6.2 L (6.3-8.2) g/dL Albumin 3.1 L (3.5-5.0) g/dL Assessment and Plan Assessment: 1. Hypernatremia from lack of oral water intake. Improved. Sodium level 139 on 09/20/2023. Off of IV fluids and maintained on free water down feeding tube. 2. History of MS. 3. History of neurogenic bladder with chronic Stein catheter. 4. Dysphagia. Has PEG tube. Plan: Decrease rate of free water with acute feedings Repeat sodium in a.m.
[2023-09-23 11:24] LABS: Glucose,Whole Blood 109 mg/dL (70-110)
--- NOTE | 2023-09-23 12:41 | PN ---
PROGRESS NOTE DATE OF SERVICE: 09/23/2023 SUBJECTIVE: This is a 63-year-old gentleman admitted with multiple complex medical issues, continues to be confused. Abdominal CT was abnormal. Surgery is being followed. Previous colonoscopy PHYSICAL EXAMINATION: VITAL SIGNS: Pulse 67, blood pressure ntd, and respirations 18. CHEST: Clear to auscultation. CARDIOVASCULAR: S1 and S2. ABDOMEN: Soft. NERVOUS SYSTEM: Diffusely weak. LABORATORY DATA: Reviewed. ASSESSMENT: 1. Severe hyponatremia, present on admission. 2. Change in mental status secondary to hyponatremia. 3. History of severe constipation. 4. Mild thickening in the distal sigmoid colon in the CAT scan. 5. Multiple sclerosis. 6. Neurogenic bladder. 7. Dementia. 8. Hypertension. 9. Change in mental status, metabolic encephalopathy, multifactorial. 10.Full code. 11.Multiple complex medical issues. RECOMMENDATIONS: Continue current closely follow with Surgery. We will repeat labs in the morning. Await previous colonoscopy reports from elsewhere. Continue to monitor. Further recommendations to follow. MMODL / IJN: [id number] / JOSE MIGUEL
--- NOTE | 2023-09-23 15:25 | P.PN ---
Subjective Progress Note Date: 09/23/23 CHIEF COMPLAINT: Abnormal computed tomography scan for malignancy HISTORY OF PRESENT ILLNESS: The patient is a 63-year-old with history of constipation. He had recent imaging demonstrating questionable malignancy. He is having regular bowel movements. Family at bedside reports he had recent colonoscopy at outside institution in the past year and want to hold on any repeat scopes at this time. She reports he is developing an infection but has not had infectious disease on his current admission. ROS: No reports of nausea and vomiting. No fevers or chills. No new chest pain. No productive sputum PHYSICAL EXAM: VITAL SIGNS: Reviewed CONSTITUTIONAL: Well developed and in no acute distress. EYES: Conjuctivae without sclera icterus. Extraocular movements grossly intact. HEAD, EARS, NOSE, THROAT: Moist buccal mucosa. Head is atraumatic, normocephalic. Hears conversational speech. No nasal drainage. RESPIRATORY: Non-labored respirations and equal bilateral excursions. CARDIOVASCULAR: Palpable 2+ radial pulses. ABDOMEN: No peritonitis. MUSCULOSKELETAL: Has spasticity. SKIN: Good skin turgor. Well perfused. NEUROLOGIC: Cranial nerves II through XII grossly intact. PSYCH: Minimally verbal. CLINICAL LABS: Reviewed. WBC normal. Hemoglobin normal. STUDIES: CT of the abdomen and pelvis independently reviewed demonstrate moderate distention of the ascending transverse colon with normal caliber sigmoid colon. Moderate stool identified. This is my independent interpretatio n. ASSESSMENT: 1. Chronic constipation 2. Abnormal computed tomography scan for malignancy PLAN: 1. Family wants further work-up with infectious disease prior to proceeding with any further procedures or intervention 2. May resume tube feeds Objective - Vital Signs Vital signs: Vital Signs Temp 98.6 F 09/23/23 12:00 Pulse 88 09/23/23 15:21 Resp 18 09/23/23 14:00 BP 131/79 09/23/23 12:00 Pulse Ox 97 09/23/23 12:00 FiO2 Intake & Output 09/22/23 09/23/23 09/23/23 18:59 06:59 18:59 Intake Total 10 Output Total 300 250 800 Balance -300 -240 -800 Intake: IV 10 Invasive Line 4 10 Output: Urine 300 250 800 Other: Voiding Method Indwelling Catheter Indwelling Catheter Indwelling Catheter # Bowel Movements 1 1 1 - Labs CBC & Chem 7: 09/23/23 06:51 09/23/23 09:59 Labs: Abnormal Lab Results - Last 24 Hours (Table) 09/23/23 09/23/23 Range/Units 06:51 06:51 Hgb 12.8 L (13.0-17.5) gm/dL MCHC 30.9 L (31.0-37.0) g/dL RDW 17.5 H (11.5-15.5) % Lymphocytes # 0.7 L (1.0-4.8) k/uL Glucose 116 H (74-99) mg/dL Total Protein 6.2 L (6.3-8.2) g/dL Albumin 3.1 L (3.5-5.0) g/dL
[2023-09-23 17:37] LABS: Glucose,Whole Blood 90 mg/dL (70-110)
[2023-09-23] MEDS: ATORVASTATIN 40 MG TAB PEG/G-TUBE SCH (21:51)
[2023-09-23 23:59] LABS: Glucose,Whole Blood 119 mg/dL (70-110)
[2023-09-24] MEDS: IPRATROPIUM-ALBUTEROL 3 ML NEB INHALATION SCH ×5 (04:16→21:01)
[2023-09-24] MEDS: oxyBUTYnin chloride 5 MG TAB PEG/G-TUBE SCH ×3 (05:58→21:19)
[2023-09-24] MEDS: BACLOFEN 10 MG TAB PEG/G-TUBE SCH ×3 (05:58→21:18)
[2023-09-24 06:07] LABS: Glucose,Whole Blood 123 mg/dL (70-110)
[2023-09-24] MEDS ORDERED: PEG 3350 (236 GM/BTL) + LYTES 4,000 ML BOTTLE PO ONE (09:00)
[2023-09-24 09:15] LABS: Anisocytosis Slight; Basophils % (A) 1 %; Eosinophils # (A) 0.4 k/uL (0-0.7); Eosinophils % (A) 9 %; HCT 41.4 % (39.0-53.0); HGB 12.6 gm/dL (13.0-17.5); Hypochromasia Marked; Lymphocytes # (A) 1.1 k/uL (1.0-4.8); Lymphocytes % (A) 23 %; MCH 24.5 pg (25.0-35.0); MCHC 30.4 g/dL (31.0-37.0); MCV 80.8 fL (80.0-100.0); Mean Platelet Volume 8.4; Microcytosis Slight; Monocytes # (A) 0.4 k/uL (0-1.0); Monocytes % (A) 8 %; Neutrophils # (A) 2.5 k/uL (1.3-7.7); Neutrophils % (A) 54 %; Platelet Count 258 k/uL (150-450); RBC 5.12 m/uL (4.30-5.90); RDW 17.7 % (11.5-15.5); WBC 4.5 k/uL (3.8-10.6)
[2023-09-24 09:28] LABS: African American GFR (CKD) >90 (>60 ml/min/1.73 sqM); Anion Gap 9 mmol/L; Blood Urea Nitrogen 16 mg/dL (9-20); Calcium 8.6 mg/dL (8.4-10.2); Carbon Dioxide 25 mmol/L (22-30); Chloride 104 mmol/L (98-107); Glucose 118 mg/dL (74-99); Non-African American GFR(CKD) >90 (>60 ml/min/1.73 sqM); Potassium 4.6 mmol/L (3.5-5.1); Sodium 138 mmol/L (137-145)
[2023-09-24] MEDS: LACOSAMIDE 50 MG TABLET PEG/G-TUBE SCH ×2 (09:48→21:18)
[2023-09-24] MEDS: ASPIRIN 81 MG PEG/G-TUBE SCH (09:48)
[2023-09-24] MEDS: polyethylene glycoL 3350 17 GM POWD.PACK PO SCH (09:48)
[2023-09-24] MEDS: FAMOTIDINE 20 MG TAB PEG/G-TUBE SCH (09:48)
[2023-09-24] MEDS: LACTULOSE 20 GM/30 ML CUP PEG/G-TUBE SCH ×3 (09:48→21:19)
[2023-09-24] MEDS: bisacodyL 10 MG SUPP RECTAL SCH (09:49)
[2023-09-24] MEDS: METOPROLOL TARTRATE 50 MG TAB PEG/G-TUBE SCH ×2 (09:49→21:18)
--- NOTE | 2023-09-24 11:25 | P.PN ---
Subjective Patient is seen for follow-up for hypernatremia. Currently off of IV fluids and maintained on free water down the feeding tube. Free water was increased increased with tube feedings. Sodium at 138 today. Objective - Vital Signs Vital signs: Vital Signs Temp 98.2 F 09/24/23 09:45 Pulse 77 09/24/23 09:45 Resp 17 09/24/23 09:45 BP 130/84 09/24/23 09:45 Pulse Ox 98 09/24/23 09:45 FiO2 Intake & Output 09/23/23 09/24/23 09/24/23 18:59 06:59 18:59 Output Total 800 500 Balance -800 -500 Output: Urine 800 500 Other: Voiding Method Indwelling Catheter Indwelling Catheter Indwelling Catheter # Bowel Movements 1 - Exam patient is awake. He does not communicate much. Examination of the heart S1 and S2 Examination of the lungs bilateral breath sounds are heard Abdomen is soft nontender No edema noted in the lower extremities Patient does not move his extremities much. Possible contracture noted on the left upper extremity - Labs CBC & Chem 7: 09/24/23 08:51 09/24/23 08:51 Labs: Abnormal Lab Results - Last 24 Hours (Table) 09/23/23 09/24/23 09/24/23 Range/Units 23:58 06:05 08:51 Hgb 12.6 L (13.0-17.5) gm/dL MCH 24.5 L (25.0-35.0) pg MCHC 30.4 L (31.0-37.0) g/dL RDW 17.7 H (11.5-15.5) % Glucose (74-99) mg/dL POC Glucose (mg/dL) 119 H 123 H (70-110) mg/dL 09/24/23 Range/Units 08:51 Hgb (13.0-17.5) gm/dL MCH (25.0-35.0) pg MCHC (31.0-37.0) g/dL RDW (11.5-15.5) % Glucose 118 H (74-99) mg/dL POC Glucose (mg/dL) (70-110) mg/dL Assessment and Plan Assessment: 1. Hypernatremia from lack of oral water intake. Improved. Sodium level 138 today. Off of IV fluids and maintained on free water down feeding tube. 2. History of MS. 3. History of neurogenic bladder with chronic Stein catheter. 4. Dysphagia. Has PEG tube. Plan: Continue free water at 30 mL every 4 hours. Repeat sodium in a.m.
[2023-09-24 11:41] LABS: Glucose,Whole Blood 114 mg/dL (70-110)
[2023-09-24 18:15] LABS: Glucose,Whole Blood 125 mg/dL (70-110)
--- NOTE | 2023-09-24 18:27 | P.PN ---
Subjective Progress Note Date: 09/24/23 CHIEF COMPLAINT: Abnormal computed tomography scan for malignancy HISTORY OF PRESENT ILLNESS: The patient is a 63-year-old with history of constipation with AMS. Family relayed to nurse that they do not want colonoscopy. No new events. ROS: No reports of nausea and vomiting. No fevers or chills. No new chest pain. No productive sputum PHYSICAL EXAM: VITAL SIGNS: Reviewed CONSTITUTIONAL: Well developed and in no acute distress. EYES: Conjuctivae without sclera icterus. Extraocular movements grossly intact. HEAD, EARS, NOSE, THROAT: Moist buccal mucosa. Head is atraumatic, normocephalic. Hears conversational speech. No nasal drainage. RESPIRATORY: Non-labored respirations and equal bilateral excursions. Has rales. CARDIOVASCULAR: Palpable 2+ radial pulses. ABDOMEN: No peritonitis. MUSCULOSKELETAL: Has spasticity. SKIN: Good skin turgor. Well perfused. NEUROLOGIC: Cranial nerves II through XII grossly intact. PSYCH: Minimally verbal. CLINICAL LABS: Reviewed. ASSESSMENT: 1. Chronic constipation 2. Abnormal computed tomography scan for malignancy PLAN: 1. Per request of family, interventions are being help until assessment with infectious disease. Objective - Vital Signs Vital signs: Vital Signs Temp 98.2 F 09/24/23 09:45 Pulse 80 09/24/23 16:01 Resp 18 09/24/23 16:01 BP 147/93 09/24/23 15:45 Pulse Ox 98 09/24/23 15:45 FiO2 Intake & Output 09/23/23 09/24/23 09/24/23 18:59 06:59 18:59 Output Total 800 500 200 Balance -800 -500 -200 Output: Urine 800 500 200 Other: Voiding Method Indwelling Catheter Indwelling Catheter Indwelling Catheter # Bowel Movements 1 1 - Labs CBC & Chem 7: 09/24/23 08:51 09/24/23 08:51 Labs: Abnormal Lab Results - Last 24 Hours (Table) 09/23/23 09/24/23 09/24/23 Range/Units 23:58 06:05 08:51 Hgb 12.6 L (13.0-17.5) gm/dL MCH 24.5 L (25.0-35.0) pg MCHC 30.4 L (31.0-37.0) g/dL RDW 17.7 H (11.5-15.5) % Glucose (74-99) mg/dL POC Glucose (mg/dL) 119 H 123 H (70-110) mg/dL 09/24/23 09/24/23 09/24/23 Range/Units 08:51 11:39 18:14 Hgb (13.0-17.5) gm/dL MCH (25.0-35.0) pg MCHC (31.0-37.0) g/dL RDW (11.5-15.5) % Glucose 118 H (74-99) mg/dL POC Glucose (mg/dL) 114 H 125 H (70-110) mg/dL
--- NOTE | 2023-09-24 20:40 | PN ---
PROGRESS NOTE DATE OF SERVICE: 09/24/2023 SUBJECTIVE: This is a 63-year-old gentleman admitted with multiple medical problems, continues to be confused at this time. Multiple consultants are following the patient closely. The patient had abnormal CT scan, which is being followed by Surgery at this time. Infectious Disease also following the patient closely. OBJECTIVE: VITAL SIGNS: Pulse is 77, blood pressure 130/80, respirations 17. CHEST: Clear to auscultation. CARDIOVASCULAR: S1, S2. ABDOMEN: Soft. NERVOUS SYSTEM: Diffusely weak. LABORATORY DATA: Noted. ASSESSMENT: 1. Severe hyponatremia present on admission. 2. Change in mental status secondary to hyponatremia. 3. History of severe constipation. 4. Mild thickening of the distal sigmoid colon in the CAT scan. 5. Multiple sclerosis. 6. Neurogenic bladder. 7. Dementia. 8. Hypertension. 9. Change in mental status, acute metabolic encephalopathy, multifactorial. 10.Multiple complex medical issues. 11.Full code. RECOMMENDATIONS: Recommend to continue current medications. Continue symptomatic treatment. Otherwise, monitor closely with multiple consultants. Prognosis guarded because of multiple complex medical issues. Further recommendations to follow. MMODL / IJN: [id number] /
[2023-09-24] MEDS: ATORVASTATIN 40 MG TAB PEG/G-TUBE SCH (21:18)
[2023-09-25 00:37] LABS: Glucose,Whole Blood 96 mg/dL (70-110)
[2023-09-25] MEDS: IPRATROPIUM-ALBUTEROL 3 ML NEB INHALATION SCH ×7 (02:30→21:34)
[2023-09-25] MEDS: oxyBUTYnin chloride 5 MG TAB PEG/G-TUBE SCH ×3 (04:27→20:54)
[2023-09-25] MEDS: BACLOFEN 10 MG TAB PEG/G-TUBE SCH ×3 (04:27→20:54)
[2023-09-25 06:50] LABS: Glucose,Whole Blood 111 mg/dL (70-110)
--- NOTE | 2023-09-25 06:51 | P.CONS ---
History of Present Illness - Reason for Consult Consult date: 09/24/23 - History of Present Illness Patient is a 63-year-old male with a past medical history significant for MS seizure disorder hypertension reflux DVT history of recurrent UTI and pneumonia in this patient who is a bedbound state patient present to the hospital 10 days ago for evaluation of mental status changes apparently the nursing staff at the facility noticed patient to be more lethargic no fever reported and apparently did have abnormal labs for the patient was sent to the ER however on presentation to the hospital the patient did have a normal white count normal hemoglobin did have a normal UA patient apparently noticed to have some abdominal distention for the patient did have abdominal x-rays with ev idence of large stool burden in the distal colon and large amount of gas in the colon patient has been evaluated by multiple consultants including neurology nephrology and general surgery and did have multiple abdominal x-rays he also have a abdominal pelvis CT done on 09/21/2023 about 3 days ago lung bases were clear patient did have mild area of thickening of the distal sigmoid colon with upstream air distention without obstructive process malignancy would be difficult to exclude direct visualization is recommended no bowel obstruction or appendicitis left renal atrophy no renal stones chronic fracture of the left femoral neck appearance is unchanged, general surgery wanted to proceed with the colonoscopy however the patient sister has refused as apparently the patient did have a normal colonoscopy in 2021 and he did have a sigmoidoscopy beginning of the year at [facility] which according to the patient's sister goes has been the patient's sister mentioned that she has been following his labs and has noticed that his white count has gone from 8.5-4.5 and she is concerned the pa tient is having infection as mentioned earlier the patient white count has been normal ranging from 5.6-4.5 during last 10 days and he did not have a single fever during this hospital stay patient did have a chronic indwelling Stein catheter however nursing staff were not clear if the Stein catheter was changed on presentation to the hospital Past Medical History Past Medical History: Deep Vein Thrombosis (DVT), GERD/Reflux, Hypertension, Musculoskeletal Disorder, Neurologic Disorder, Pneumonia, Seizure Disorder, Skin Disorder Additional Past Medical History / Comment(s): Pt diagnosed with MS at the age of 39 yrs, seizure/pneumonia/UTI with sepsis/respirtory failure/vented, cognitive impairment, sister states when he is feeling well he could speak a few words/nod head appropriately/give thumbs up/roll eyes but when ill is nonverbal, pt has dysphagia/NPO with peg tube, contractures, last seizure 07/2020, trigeminal neuralgia, dysarthria/anarthria/neurogenic bladder with IDC-UTIs/sepsis, multiple pneumonias, recent seizure-last one 07/03/20, incontinent of stool, pt has had decubitus ulcer coccyx-sister unsure of skin condition at this time, past anemia r/t heparin/epistaxiis which involved nasal packing/transfusions, DVT bilateral arms, hypoxia, oxygen at 2L/NC, L femoral head fracture History of Any Multi-Drug Resistant Organisms: ESBL, MRSA, Other MDRO Year Discovered:: 03/09/21-MRSA; 11/23/19 ESBL-E.coli MDRO Source:: Abdomen-Peg site MRSA; Urine -ESBL Past Surgical History: Tonsillectomy Additional Past Surgical History / Comment(s): Gastrostomy, peg tube, I&D coccyx decubitius, bronchoscopy, bilateral lasik eye surgery. Past Anesthesia/Blood Transfusion Reactions: No Reported Reaction Additional Past Anesthesia/Blood Transfusion Reaction / Comm: Pt has received blood in past without reaction. Past Psychological History: Depression Smoking Status: Never smoker Past Alcohol Use History: None Reported Past Drug Use History: None Reported - Past Family History Father Family Medical History: Myocardial Infarction (UT) Mother Family Medical History: Hypertension, Myocardial Infarction (UT) Additional Family Medical History / Comment(s): Mother of a UT at the age of 73 yrs. Medications and Allergies Home Medications Medication Instructions Recorded Confirmed Type Ipratropium-Albuterol Nebulize 3 ml INHALATION RT-Q4H 12/16/19 09/12/23 History [Duoneb 0.5 mg-3 mg/3 ml Soln] Aspirin 81 mg PEG/G-TUBE DAILY@0900 11/27/20 09/12/23 History Acetaminophen Tab [Tylenol] 650 mg PEG/G-TUBE Q4H PRN 06/13/21 09/12/23 History Metoprolol Tartrate [Lopressor] 50 mg PEG/G-TUBE BID@0900,2100 06/13/21 09/12/23 History carBAMazepine [carBAMazepine Oral 100 mg PEG/G-TUBE 07/02/21 09/12/23 History Susp] TID@0600,1400,2200 Amantadine Hcl Solution 50mg/5ml 100 mg PEG/G-TUBE DAILY@0900 12/22/21 09/12/23 History Lactulose 20 gm PEG/G-TUBE TID@0900,1700,2100 01/03/22 09/12/23 History Scopolamine [Scopolamine 1 MG/72 2 patch TRANSDERM Q72H 01/03/22 09/12/23 History HR patch] Baclofen [Lioresal] 5 mg PEG/G-TUBE TID@0600,1400,2200 05/03/22 09/12/23 Rx tab oxyBUTYnin chloride 5 mg PEG/G-TUBE TID@0600,1400,2200 12/19/22 09/12/23 History Atorvastatin [Lipitor] 40 mg PEG/G-TUBE HS 07/14/23 09/12/23 History Famotidine [Pepcid] 20 mg PEG/G-TUBE DAILY 07/14/23 09/12/23 History Cefpodoxime Proxetil [Vantin] 200 mg PEG/G-TUBE Q12HR 14 Days 09/08/23 09/12/23 Rx #28 tab Lacosamide [Vimpat Oral Soln] 150 mg PO BID@0900,199909/12/23 09/12/23 History Allergies Allergy/AdvReac Type Severity Reaction Status Date / Time meropenem [From Merrem] Allergy Rash/Hives Verified 09/12/23 16:43 ceftolozane [From Zerbaxa] AdvReac Rapid Verified 09/12/23 16:43 Heart Rate tazobactam [From Zerbaxa] AdvReac Rapid Verified 09/12/23 16:43 Heart Rate Physical Exam Vitals: Vital Signs Temp Pulse Pulse Pulse Resp BP Pulse Ox 09/24/23 12:02 77 18 09/24/23 11:55 78 18 145/94 96 09/24/23 11:53 72 18 09/24/23 09:45 98.2 F 77 17 130/84 98 09/24/23 08:35 82 16 09/24/23 08:25 80 16 95 09/24/23 04:17 78 09/24/23 04:00 98.7 F 78 18 116/77 94 L 09/24/23 02:00 78 74 16 09/23/23 23:56 98.8 F 74 16 125/72 98 09/23/23 23:54 74 09/23/23 23:45 74 09/23/23 20:33 76 09/23/23 20:20 76 09/23/23 20:00 78 74 16 09/23/23 19:49 98.8 F 75 18 136/86 98 09/23/23 16:00 98.1 F 103 H 16 119/69 98 09/23/23 15:30 88 09/23/23 15:21 88 09/23/23 14:00 18 Intake and Output 09/23/23 09/24/23 09/24/23 22:59 06:59 14:59 Output Total 500 Balance -500 Output: Urine 500 Other: Voiding Method Indwelling Catheter Indwelling Catheter Indwelling Catheter # Bowel Movements 1 Results CBC & Chem 7: 09/25/23 10:31 09/25/23 10:31 Labs: Abnormal Lab Results - Last 24 Hours (Table) 09/23/23 09/24/23 09/24/23 Range/Units 23:58 06:05 08:51 Hgb 12.6 L (13.0-17.5) gm/dL MCH 24.5 L (25.0-35.0) pg MCHC 30.4 L (31.0-37.0) g/dL RDW 17.7 H (11.5-15.5) % Glucose (74-99) mg/dL POC Glucose (mg/dL) 119 H 123 H (70-110) mg/dL 09/24/23 09/24/23 Range/Units 08:51 11:39 Hgb (13.0-17.5) gm/dL MCH (25.0-35.0) pg MCHC (31.0-37.0) g/dL RDW (11.5-15.5) % Glucose 118 H (74-99) mg/dL POC Glucose (mg/dL) 114 H (70-110) mg/dL Assessment and Plan Plan: 1-patient is a 63-year male with multiple comorbidities including MS seizure disorder and has been bedbound state with multiple admissions to the [facility] did presented more than 10 days ago for evaluation of decreased level of responsiveness patient noted to have significant abdominal distention and large stool burden on the x-rays and did have abnormal CT concerning for possible malignancy that is how it been reported by the radiol ogist, surgery is recommending colonoscopy with the patient sister is refusing she wants the patient to be rule out for any infectious etiology in this patient who did not have any fever for the last 10 days and did have a normal white count, patient did have a normal UA on admission with recent CT Abdominal pelvis did not show any abnormality to the lung bases or any evidence of colitis 2-I have a detailed discussion with the patient's sister to let the surgery proceed with the colonoscopy for direct visualization that will help determine etiology of abnormality seen on the CT however she continued to refuse 3-we will obtain blood cultures CRP and procalcitonin 4-patient's sister is demanding further workup as the patient has gained 50 pounds over the last few months we will leave that to the medical team Thank you for this interesting consultation we will follow the patient along with you Dictation was produced using [employer] dictation software. please excuse any grammatical, word or spelling errors. Time with Patient: Greater than 30
[2023-09-25] MEDS: METOPROLOL TARTRATE 50 MG TAB PEG/G-TUBE SCH ×2 (09:12→20:54)
[2023-09-25] MEDS: polyethylene glycoL 3350 17 GM POWD.PACK PO SCH (09:12)
[2023-09-25] MEDS: bisacodyL 10 MG SUPP RECTAL SCH (09:12)
[2023-09-25] MEDS: FAMOTIDINE 20 MG TAB PEG/G-TUBE SCH (09:12)
[2023-09-25] MEDS: LACTULOSE 20 GM/30 ML CUP PEG/G-TUBE SCH ×3 (09:12→20:54)
[2023-09-25] MEDS: LACOSAMIDE 50 MG TABLET PEG/G-TUBE SCH ×2 (09:12→20:54)
[2023-09-25] MEDS: ASPIRIN 81 MG PEG/G-TUBE SCH (09:12)
[2023-09-25 10:52] LABS: Anisocytosis Slight; Basophils % (A) 1 %; Eosinophils # (A) 0.5 k/uL (0-0.7); Eosinophils % (A) 9 %; HCT 43.5 % (39.0-53.0); HGB 13.2 gm/dL (13.0-17.5); Hypochromasia Marked; Lymphocytes % (A) 17 %; MCH 24.7 pg (25.0-35.0); MCHC 30.5 g/dL (31.0-37.0); Mean Platelet Volume 8.2; Microcytosis Slight; Monocytes # (A) 0.4 k/uL (0-1.0); Monocytes % (A) 6 %; Neutrophils # (A) 3.6 k/uL (1.3-7.7); Neutrophils % (A) 62 %; Platelet Count 288 k/uL (150-450); RBC 5.36 m/uL (4.30-5.90); RDW 17.7 % (11.5-15.5); WBC 5.7 k/uL (3.8-10.6)
[2023-09-25 11:20] LABS: ALT 113 U/L (4-49); AST 53 U/L (17-59); African American GFR (CKD) >90 (>60 ml/min/1.73 sqM); Albumin 3.8 g/dL (3.5-5.0); Alkaline Phosphatase 122 U/L (38-126); Anion Gap 14 mmol/L; Blood Urea Nitrogen 20 mg/dL (9-20); Carbon Dioxide 23 mmol/L (22-30); Chloride 104 mmol/L (98-107); Glucose 120 mg/dL (74-99); Non-African American GFR(CKD) >90 (>60 ml/min/1.73 sqM); Potassium 4.7 mmol/L (3.5-5.1); Sodium 141 mmol/L (137-145); Total Bilirubin 0.3 mg/dL (0.2-1.3); Total Protein 7.1 g/dL (6.3-8.2)
[2023-09-25] MEDS: SCOPOLAMINE 1 MG/72 HR PATCH TRANSDERM SCH (11:36)
[2023-09-25 11:43] LABS: Glucose,Whole Blood 129 mg/dL (70-110)
--- NOTE | 2023-09-25 11:43 | P.PN ---
Subjective Patient is seen for follow-up for hypernatremia. Currently off of IV fluids and maintained on free water down the feeding tube. Free water was increased increased with tube feedings. Sodium at 141 today. Objective - Vital Signs Vital signs: Vital Signs Temp 98.2 F 09/25/23 09:10 Pulse 86 09/25/23 09:10 Resp 19 09/25/23 09:10 BP 154/87 09/25/23 09:10 Pulse Ox 96 09/25/23 09:10 FiO2 Intake & Output 09/24/23 09/25/23 09/25/23 18:59 06:59 18:59 Output Total 200 Balance -200 Output: Urine 200 Other: Voiding Method Indwelling Catheter Indwelling Catheter Indwelling Catheter # Bowel Movements 1 1 - Exam patient is awake. He does not communicate much. Examination of the heart S1 and S2 Examination of the lungs bilateral breath sounds are heard Abdomen is soft nontender No edema noted in the lower extremities Patient does not move his extremities much. Possible contracture noted on the left upper extremity - Labs CBC & Chem 7: 09/25/23 10:31 09/25/23 10:31 Labs: Abnormal Lab Results - Last 24 Hours (Table) 09/24/23 09/25/23 09/25/23 Range/Units 18:14 06:49 10:31 MCH 24.7 L (25.0-35.0) pg MCHC 30.5 L (31.0-37.0) g/dL RDW 17.7 H (11.5-15.5) % Glucose (74-99) mg/dL POC Glucose (mg/dL) 125 H 111 H (70-110) mg/dL ALT (4-49) U/L C-Reactive Protein (<1.0) mg/dL 09/25/23 Range/Units 10:31 MCH (25.0-35.0) pg MCHC (31.0-37.0) g/dL RDW (11.5-15.5) % Glucose 120 H (74-99) mg/dL POC Glucose (mg/dL) (70-110) mg/dL ALT 113 H (4-49) U/L C-Reactive Protein 1.0 H (<1.0) mg/dL Assessment and Plan Assessment: 1. Hypernatremia from lack of oral water intake. Improved. Sodium level 138 today. Off of IV fluids and maintained on free water down feeding tube. 2. History of MS. 3. History of neurogenic bladder with chronic Stein catheter. 4. Dysphagia. Has PEG tube. Plan: Continue free water with acute feeding. Increase to 50 mL every 4 hours. Repeat sodium in a.m.
--- NOTE | 2023-09-25 12:16 | P.PN ---
Subjective Progress Note Date: 09/25/23 Principal diagnosis: Reason for follow-up with abnormal CT abdominal pannus and a question of infection Patient is a 63-year-old male with a past medical history significant for MS seizure disorder hypertension reflux DVT history of recurrent UTI and pneumonia in this patient who is a bedbound state patient present to the hospital more than 10 days ago for evaluation of mental status changes, patient did have abdominal distention abnormal CT surgery recommended colonoscopy which was refused by the sister and wanted to have infectious disease evaluation that has prompted this consultation On today's evaluation that is 09/25/2023 the patient remains to be afebrile, the patient is breathing comfortably on room air patient is hemodynamically stable not requiring pressor support not tachycardic no vomiting or any other changes reported by the nursing staff patient cannot provide any history. Patient did have white count of 5.7 with 62% neutrophils and no left shift creatinine 0.73 Objective - Vital Signs Vital signs: Vital Signs Temp 98.2 F 09/25/23 09:10 Pulse 86 09/25/23 09:10 Resp 19 09/25/23 09:10 BP 154/87 09/25/23 09:10 Pulse Ox 96 09/25/23 09:10 FiO2 Intake & Output 09/24/23 09/25/23 09/25/23 18:59 06:59 18:59 Output Total 200 Balance -200 Output: Urine 200 Other: Voiding Method Indwelling Catheter Indwelling Catheter Indwelling Catheter # Bowel Movements 1 1 - Exam GENERAL DESCRIPTION: Middle-age male lying in bed in no distress RESPIRATORY SYSTEM: Unlabored breathing , decreased breath sounds at bases HEART: S1 S2 regular rate and rhythm , ABDOMEN: Soft , distention EXTREMITIES: No edema feet - Labs CBC & Chem 7: 09/25/23 10:31 09/25/23 10:31 Labs: Abnormal Lab Results - Last 24 Hours (Table) 09/24/23 09/24/23 09/25/23 Range/Units 11:39 18:14 06:49 POC Glucose (mg/dL) 114 H 125 H 111 H (70-110) mg/dL Assessment and Plan (1) Abnormal CT of the abdomen Current Visit: Yes Status: Acute Code(s): R93.5 - ABN FINDINGS ON DX IMAGING OF ABD REGIONS, INC RETROPERITON SNOMED Code(s): 90880618003901636 Plan: 1-patient is a 63-year male with multiple comorbidities including MS seizure disorder and has been bedbound state with multiple admissions to the local area hospital did presented more than 10 days ago for evaluation of decreased level of responsiveness patient noted to have significant abdominal distention and large stool burden on the x-rays and did have abnormal CT concerning for possible malignancy that is how it been reported by the radiologist, surgery is recommending colonoscopy with the patient sister is refusing she wants the patient to be rule out for any infectious etiology in this patient who did not have any fever for the last 10 days and did have a normal white count, patient did have a normal UA on admission with recent CT Abdominal pelvis did not show any abnormality to the lung bases or any evidence of colitis 2- the patient remains to be afebrile did have a normal white count and no left shift currently waiting for CRP procalcitonin blood cultures, not recommending any antibiotic therapy at this point and the patient will benefit from colonoscopy and further workup for the abnormality seen on the CT Dictation was produced using [employer] dictation software. please excuse any grammatical, word or spelling errors. Time with Patient: Less than 30
--- NOTE | 2023-09-25 13:36 | P.PN ---
Subjective Progress Note Date: 09/25/23 Patient is a 63-year-old male with a past medical history of hypertension, multiple sclerosis, seizure disorder, dementia, chronic indwelling Stein catheter ,multiple urinary tract infection, dysphagia on PEG tube, neurogenic bladder. Patient is awake and alert x1 but nonverbal at baseline. Patient is a resident of a skilled nursing facility was brought to the ER for increasing lethargy. History is limited as patient is nonverbal at baseline. According to EMR, nursing staff at the facility noted and patient was more lethargic. They didn't notice any fever or chills. Patient was not complaining of any pain in any part of the body. Because of increased lethargy, patient was sent to the ER Initial lab work done in the ER showed WBC 5.6, hemoglobin 13.3, platelet count 248, sodium 155, potassium 4.2, BUNs 23, creatinine 0.73, AST 26, AST 25, troponin 0.036 UA negative for infection EKG done in the ER showed normal sinus rhythm, no acute ST segment changes or T- wave inversions seen Patient admitted to internal medicine service 09/14. Patient seen and examined. Nephrology evaluated the patient, change fluids to D5 half normal saline, patient was started on tube feeding. Patient sodium levels improved. Neurology also evaluated the patient, recommended continuation of current medications. Ordered EEG which is pending 09/15. Patient seen and examined. Nursing staff noted the patient abdominal is distended, stat abdominal x-ray ordered. Patient tolerating tube feeding. Hasn 't had a bowel movement yet. No nausea vomiting 09/16. Patient seen and examined. Patient had multiple bowel movements overnight, lactulose discontinued. Does not look in acute distress. Denies any nausea or vomiting 09/17/2023 Patient is currently lying in the bed. Nonverbal. Awake alert. Continued on tube feeding and free water was added. Laboratory data showed sodium 141 potassium 4.4 chloride 108 BUN 13 and creatinine 0.65. Calcium 8.3. Patient is being followed by general surgery. Abdominal x-ray showed nonspecific abdominal. Improving appearance of mid abdominal bowel air. 09/18/2023 Patient is currently lying in bed. Overall condition remains the same. Abdominal distention is much improved. Patient is tolerating tube feeding. Has been having liquid bowel movements. Patient is being continued on lactulose. Otherwise laboratory test showed sodium 139 potassium 5.0 chloride 108 bicarb is 19 BUN 16 and creatinine 0.65 and blood sugar is 108. IV fluids on hold. N ephrology and general surgery is on board. 09/19/2023 Patient is resting in the bed. Awake alert. Nonverbal at baseline. Patient is tolerating oral diet. Abdominal distention is also better. Patient has been having liquidy bowel meds. Abdominal x-ray done today showed large stool burden throughout the colon. Not significantly changed from 09/17/2023. Patient was given 1 dose of GoLytely today. The patient is afebrile. No vomiting. Laboratory data showed sodium 140 potassium 4.1 chloride 104 bicarb is 26 BUN 16 creatinine 0.6 and blood sugar is 104. 09/20/2023 Patient is currently sitting up in bed awake, alert and oriented at baseline and is nonverbal although does I tract. Patient currently receiving GoLYTELY another liter per surgery recommendations for continued large amounts of stool noted. Patient's abdomen is distended. Per nursing staff patient has had bowel movements and have been all liquid. Recommend monitoring overnight for bowel movements with possible discharge planning back to ECF in 24 hours. Patient is maintained on tube feeds and tolerating. Recommend aspiration cautions and head of the bed elevated 30-45 at all times. Nephrology following as well for hypernatremia and no new labs drawn today, yesterday's was 140 and will follow- up with repeat labs. Patient is afebrile and off IV fluids continuing with free water flushes. Vital signs are stable. Social work following and plan is to return to [facility] in [place] where he resides 09/21/2023 Patient is seen in follow-up today with general surgery following underwent repeat abdominal x-ray showing ongoing pancolonic gaseous distention measuring up to 8.9 cm versus 8.5 cm previously. General surgery adding another dose of GoLYTELY and to continue having bowel movements. Patient appears quite distended on exam and is nonverbal although no guarding or rigidity noted on palpation of the abdomen. Patient continues on tube feeds and tolerating and per nursing staff is having bowel movements. Patient is afebrile with no reported chest pain or shortness of breath and is 96% on room air. Plan is for patient return to ECF once stabilized and cleared by general surgery. Given the holiday probable discharge early next week. 09/25/2023 Patient is seen and evaluated in follow-up today being followed by infectious disease along with general surgery. Initially surgery recommending colonoscopy although patient's family is refusing and awaiting to receive records from [facility] on the colonoscopy that was performed in 2021. Patient is continued on tube feedings and aspiration precautions. Abdomen continues to be distended and per nursing staff is having bowel movements.. Nephrology following as well and sodium level has improved recommend following up on repeat labs in the a.m. and will continue with increased free water flushes. Patient is currently afebrile with no reports of chest pain or shortness of breath. Will obtain chest x-ray with abdominal x-ray for evaluation of continued distention. REVIEW OF SYSTEMS: Review of systems unobtainable, patient is nonverbal at baseline PHYSICAL EXAMINATION: GENERAL: The patient is alert alert to self, patient is chronically ill-looking HEENT: Pupils are round and equally reacting to light. EOMI. No scleral icterus. No conjunctival pallor. Normocephalic, atraumatic. No pharyngeal erythema. No thyromegaly. CARDIOVASCULAR: S1 and S2 present. No murmurs, rubs, or gallops. PULMONARY: Chest is clear to auscultation, no wheezing or crackles. ABDOMEN: taut, normoactive bowel sounds. No palpable organomegaly. Mildly distended PEG tube noted and patent MUSCULOSKELETAL: No joint swelling or deformity. EXTREMITIES: No cyanosis, clubbing, or pedal edema. NEUROLOGICAL:awake, alert x1. Nonverbal. Patient is bedbound. SKIN: No rashes. Assessment: Hypernatremia. improved. Acute metabolic encephalopathy secondary to hypernatremia, improved at baseline Severe constipation suspect ileus. Mild thickening of the distal sigmoid colon noted on computed tomography scan, patient family currently refusing colonoscopy Neurogenic bladder and history of multiple urinary tract infections Multiple sclerosis at age 39. Currently patient is bedbound Seizure disorder Cognitive impairment Hypertension GERD History of DVT Dysphagia/n.p.o. on PEG tube feeding History of trigeminal neuralgia History of ESBL E. coli urinary tract infections Depression GI prophylaxis DVT prophylaxis Full code Plan: Patient being followed by general surgery and there was some abnormal thickening noted on the sigmoid colon and general surgery recommending colonoscopy although patient family is refusing reported he had one at [facility] in 2021. Infectious disease now following an being monitored closely off antibiotic therapy. Reporting patient may benefit from colonoscopy due to abnormal CT findings and awaiting discuss further with sister who is guardian Continue with aspiration precautions and head of the bed elevated 45 at all times and monitoring closely for residuals Continue off IV fluids and follow up on repeat labs with nephrology following. Continue free water flushes at 50 mL every 4 hours in the PEG tube Case management/social work following as patient will be returning to [facility] where he resides once stabilized and discharged To discuss further with infectious disease and general surgery on discharge planning Due to multiple complex medical issues, prognosis is guarded The impression and plan of care has been dictated by Paula Ruiz, Nurse Practitioner as directed. Dr. Sebastien MD I have performed a history and examination and MDM of this patient, discussed the same with the dictator, and agree with the dictator's assessment and plan as written ,documented as a scribe. Based on total visit time, I have performed more than 50% of the visit. Objective - Vital Signs Vital signs: Vital Signs Temp 98.2 F 09/25/23 09:10 Pulse 86 09/25/23 12:18 Resp 19 09/25/23 09:10 BP 154/87 09/25/23 09:10 Pulse Ox 96 09/25/23 09:10 FiO2 Intake & Output 09/24/23 09/25/23 09/25/23 18:59 06:59 18:59 Output Total 200 Balance -200 Output: Urine 200 Other: Voiding Method Indwelling Catheter Indwelling Catheter Indwelling Catheter # Bowel Movements 1 1 - Labs CBC & Chem 7: 09/25/23 10:31 09/25/23 10:31 Labs: Abnormal Lab Results - Last 24 Hours (Table) 09/24/23 09/25/23 09/25/23 Range/Units 18:14 06:49 10:31 MCH 24.7 L (25.0-35.0) pg MCHC 30.5 L (31.0-37.0) g/dL RDW 17.7 H (11.5-15.5) % Glucose (74-99) mg/dL POC Glucose (mg/dL) 125 H 111 H (70-110) mg/dL ALT (4-49) U/L C-Reactive Protein (<1.0) mg/dL 09/25/23 09/25/23 Range/Units 10:31 11:41 MCH (25.0-35.0) pg MCHC (31.0-37.0) g/dL RDW (11.5-15.5) % Glucose 120 H (74-99) mg/dL POC Glucose (mg/dL) 129 H (70-110) mg/dL ALT 113 H (4-49) U/L C-Reactive Protein 1.0 H (<1.0) mg/dL
--- NOTE | 2023-09-25 14:45 | XR ---
EXAMINATION TYPE: XR abdomen acute w cxr DATE OF EXAM: 09/25/2023 2:35 PM CLINICAL INDICATION:Male, 63 years old with history of abd distention, short of breath; COMPARISON: CT 09/21/2023. TECHNIQUE: Two radiographic views of the abdomen (upright and supine) and a frontal chest radiograph were obtained. FINDINGS CHEST: Lungs/Pleura: The lungs are clear. There is no evidence of pleural effusion, focal consolidation or p neumothorax. Mediastinum: Unremarkable. Vasculature: Normal. Heart: Normal in size. Musculoskeletal: The osseous structures are intact. Other findings: No significant. FINDINGS ABDOMEN: Bowel gas pattern diffuse gaseous dilated loops of large bowel extending to the rectum. Throughout th e colon and rectum. Abnormal calcifications: None. Musculoskeletal: Severe degeneration changes of the hips with chronic deformity with fracture with in complete fusion of the left hip. There is superior subluxation of the hip. Other: None. IMPRESSION: 1. Similar diffuse gaseous dilation of bowel which do not appear to be secondary to twisting on CT . Correlate for ileus/constipation. 2. No acute cardiopulmonary process
[2023-09-25 18:27] LABS: Glucose,Whole Blood 114 mg/dL (70-110)
[2023-09-25] MEDS: ATORVASTATIN 40 MG TAB PEG/G-TUBE SCH (20:54)
[2023-09-26 00:18] LABS: Glucose,Whole Blood 107 mg/dL (70-110)
[2023-09-26] MEDS: IPRATROPIUM-ALBUTEROL 3 ML NEB INHALATION SCH ×5 (00:18→15:59)
[2023-09-26 05:48] LABS: Glucose,Whole Blood 111 mg/dL (70-110)
[2023-09-26] MEDS: oxyBUTYnin chloride 5 MG TAB PEG/G-TUBE SCH ×2 (06:24→16:06)
[2023-09-26] MEDS: BACLOFEN 10 MG TAB PEG/G-TUBE SCH ×2 (06:24→16:06)
[2023-09-26] MEDS: polyethylene glycoL 3350 17 GM POWD.PACK PO SCH (09:41)
[2023-09-26] MEDS: LACOSAMIDE 50 MG TABLET PEG/G-TUBE SCH (09:41)
[2023-09-26] MEDS: bisacodyL 10 MG SUPP RECTAL SCH (09:41)
[2023-09-26] MEDS: ASPIRIN 81 MG PEG/G-TUBE SCH (09:41)
[2023-09-26] MEDS: METOPROLOL TARTRATE 50 MG TAB PEG/G-TUBE SCH (09:41)
[2023-09-26] MEDS: FAMOTIDINE 20 MG TAB PEG/G-TUBE SCH (09:41)
[2023-09-26] MEDS: LACTULOSE 20 GM/30 ML CUP PEG/G-TUBE SCH ×2 (09:41→16:06)
--- NOTE | 2023-09-26 10:28 | P.PN ---
Subjective Progress Note Date: 09/26/23 Principal diagnosis: Constipation Patient has continued to have bowel function. He is less bloated per the nursing staff. Apparently his colonoscopy was canceled because he had a normal colonoscopy at an outside institution last year. Patient has chronic abdominal bloating per family. CAT scan reviewed. Large volume of air and stool in the rectum making the likelihood of a colonic obstruction low. Patient continues to tolerate tube feeds. Every time he his mood by the nursing staff he is passing stool. Objective - Vital Signs Vital signs: Vital Signs Temp 98.4 F 09/26/23 09:40 Pulse 81 09/26/23 09:40 Resp 18 09/26/23 09:40 BP 151/94 09/26/23 09:40 Pulse Ox 99 09/26/23 09:40 FiO2 Intake & Output 09/25/23 09/26/23 09/26/23 18:59 06:59 18:59 Output Total 800 450 Balance -800 -450 Output: Urine 800 450 Other: Voiding Method Indwelling Catheter Indwelling Catheter Indwelling Catheter # Bowel Movements 1 1 - Exam Abdomen: Mild distention, nontender - Labs CBC & Chem 7: 09/25/23 10:31 09/25/23 10:31 Labs: Abnormal Lab Results - Last 24 Hours (Table) 09/25/23 09/25/23 09/25/23 Range/Units 10:31 10:31 10:31 MCH 24.7 L (25.0-35.0) pg MCHC 30.5 L (31.0-37.0) g/dL RDW 17.7 H (11.5-15.5) % Glucose 120 H (74-99) mg/dL POC Glucose (mg/dL) (70-110) mg/dL ALT 113 H (4-49) U/L C-Reactive Protein 1.0 H (<1.0) mg/dL Procalcitonin 0.14 H (0.02-0.09) ng/mL 09/25/23 09/25/23 09/26/23 Range/Units 11:41 18:24 05:47 MCH (25.0-35.0) pg MCHC (31.0-37.0) g/dL RDW (11.5-15.5) % Glucose (74-99) mg/dL POC Glucose (mg/dL) 129 H 114 H 111 H (70-110) mg/dL ALT (4-49) U/L C-Reactive Protein (<1.0) mg/dL Procalcitonin (0.02-0.09) ng/mL Assessment and Plan (1) Constipation Narrative/Plan: Patient has had gradual improvement in his stool function. Patient likely has chronic colonic distention related to his immobility. Family not interested in endoscopy and I do agree that the yield would be quite low. Continue tube feeds. Continue stool softeners. We'll sign off. Please reconsult if needed. Current Visit: Yes Status: Acute Code(s): K59.00 - CONSTIPATION, UNSPECIFIED SNOMED Code(s): 51945575
[2023-09-26 10:36] VITALS: TEMP 98.4
--- NOTE | 2023-09-26 10:58 | P.PN ---
Subjective Patient is seen for follow-up for hypernatremia. Currently off of IV fluids and maintained on free water down the feeding tube. Free water was increased increased with tube feedings. Sodium at 141 yesterday Objective - Vital Signs Vital signs: Vital Signs Temp 98.4 F 09/26/23 09:40 Pulse 81 09/26/23 09:40 Resp 18 09/26/23 09:40 BP 151/94 09/26/23 09:40 Pulse Ox 99 09/26/23 09:40 FiO2 Intake & Output 09/25/23 09/26/23 09/26/23 18:59 06:59 18:59 Output Total 800 450 Balance -800 -450 Output: Urine 800 450 Other: Voiding Method Indwelling Catheter Indwelling Catheter Indwelling Catheter # Bowel Movements 1 1 - Exam patient is awake. He does not communicate much. Examination of the heart S1 and S2 Examination of the lungs bilateral breath sounds are heard Abdomen is soft nontender No edema noted in the lower extremities Patient does not move his extremities much. Possible contracture noted on the left upper extremity - Labs CBC & Chem 7: 09/25/23 10:31 09/25/23 10:31 Labs: Abnormal Lab Results - Last 24 Hours (Table) 09/25/23 09/25/23 09/25/23 Range/Units 10:31 10:31 11:41 Glucose 120 H (74-99) mg/dL POC Glucose (mg/dL) 129 H (70-110) mg/dL ALT 113 H (4-49) U/L C-Reactive Protein 1.0 H (<1.0) mg/dL Procalcitonin 0.14 H (0.02-0.09) ng/mL 09/25/23 09/26/23 Range/Units 18:24 05:47 Glucose (74-99) mg/dL POC Glucose (mg/dL) 114 H 111 H (70-110) mg/dL ALT (4-49) U/L C-Reactive Protein (<1.0) mg/dL Procalcitonin (0.02-0.09) ng/mL Assessment and Plan Assessment: 1. Hypernatremia from lack of oral water intake. Improved. Sodium level 138 today. Off of IV fluids and maintained on free water down feeding tube. 2. History of MS. 3. History of neurogenic bladder with chronic Stein catheter. 4. Dysphagia. Has PEG tube. Plan: Continue free water with acute feeding. Repeat sodium in a.m.
[2023-09-26 11:25] LABS: Anisocytosis Slight; HCT 40.2 % (39.0-53.0); HGB 12.5 gm/dL (13.0-17.5); Hypochromasia Marked; MCH 25.4 pg (25.0-35.0); MCHC 31.2 g/dL (31.0-37.0); MCV 81.5 fL (80.0-100.0); Mean Platelet Volume 7.5; Microcytosis Slight; Platelet Count 247 k/uL (150-450); RBC 4.93 m/uL (4.30-5.90); RDW 17.6 % (11.5-15.5); WBC 6.4 k/uL (3.8-10.6)
[2023-09-26 11:46] LABS: ALT 78 U/L (4-49); AST 41 U/L (17-59); African American GFR (CKD) >90 (>60 ml/min/1.73 sqM); Albumin 3.2 g/dL (3.5-5.0); Alkaline Phosphatase 102 U/L (38-126); Anion Gap 13 mmol/L; Blood Urea Nitrogen 19 mg/dL (9-20); Calcium 8.5 mg/dL (8.4-10.2); Carbon Dioxide 22 mmol/L (22-30); Chloride 104 mmol/L (98-107); Glucose 96 mg/dL (74-99); Magnesium 2.1 mg/dL (1.6-2.3); Non-African American GFR(CKD) >90 (>60 ml/min/1.73 sqM); Potassium 4.5 mmol/L (3.5-5.1); Sodium 139 mmol/L (137-145); Total Bilirubin 0.4 mg/dL (0.2-1.3); Total Protein 6.3 g/dL (6.3-8.2)
[2023-09-26 12:04] LABS: Glucose,Whole Blood 111 mg/dL (70-110)
--- NOTE | 2023-09-26 13:25 | P.DS ---
Providers Date of admission: 09/14/23 08:16 Expected date of discharge: 09/26/23 Attending physician: Dara Crowe Consults: 09/13/23 09:48 Consult Physician Routine Consulting Provider: Lacie Blount Consult Reason/Comments: Altered mental status Do you want consulting provider notified?: Yes Consult Physician Routine Consulting Provider: Bertha Knapp Consult Reason/Comments: Hypernatremia Do you want consulting provider notified?: Yes 09/17/23 07:41 Consult Physician Routine Consulting Provider: Jose Fagan Consult Reason/Comments: abdominal distention Do you want consulting provider notified?: Already Contacted 09/21/23 15:26 Consult Physician Routine Consulting Provider: Enrique Case Consult Reason/Comments: abdominal distention Do you want consulting provider notified?: Already Contacted 09/24/23 13:34 Consult Physician Routine Consulting Provider: Sonal Farah Consult Reason/Comments: infection? abnromal ct scan Do you want consulting provider notified?: Yes Primary care physician: DEANGELO VELASQUEZ MD Hospital Course: Final diagnosis Hypernatremia. improved. Acute metabolic encephalopathy secondary to hypernatremia, improved at baseline Severe constipation suspect ileus. Mild thickening of the distal sigmoid colon noted on computed tomography scan, patient family currently refusing colonoscopy as he had a normal colonoscopy and [facility] in 2021 Neurogenic bladder and history of multiple urinary tract infections Multiple sclerosis at age 39. Currently patient is bedbound Seizure disorder Cognitive impairment Hypertension GERD History of DVT Dysphagia/n.p.o. on PEG tube feeding History of trigeminal neuralgia History of ESBL E. coli urinary tract infections Depression GI prophylaxis DVT prophylaxis Full code Discharge disposition Patient is being discharged in a stable condition with guarded prognosis to [facility]. Patient will follow-up with Dr. Velasquez in the outpatient setting upon discharge. Patient is to continue with bowel regimen and tube feeds and outpatient follow-up with general surgery as needed. Recommend repeat BMP in 2-3 days to monitor sodium levels and electrolytes. Total time taken is greater than 35 minutes. Hospital course This is a 63-year-old male who was recently admitted with increased lethargy being closely monitored with general surgery and infectious disease following. Patient does have significant history of dementia with multiple sclerosis, chronic indwelling Steni catheter and has had multiple urinary tract infections. Cultures remain negative and repeat urinalysis was normal and Stein catheter was exchanged on admission. Patient having some elevated sodium levels as well being followed by nephrology and currently 139 today recommend continue with free water flushes a 50 mL every 4 hours and the PEG tube. Patient has had multiple bowel movements overnight and evaluated by general surgery initially recommending colonoscopy as there was some thickening noted on the CT although family had been refusing and requested documents from [facility] where colonoscopy was done in 2021 which was normal. Patient to continue on bowel regimen and tube feedings outpatient as mentioned below with strict aspiration precautions with head of the bed elevated 30-45 at all times. Patient will be returning to [facility] where he resides. Per ID recommendations no need for antibiotic therapy at this time and recommend outpatient follow-up with primary care provider. Recent chest x-ray was done showing no acute process as well as abdominal x-ray suggestive of chronic constipation. Currently no reports of chest pain, shortness of breath, or palpitations. Patient is afebrile. No reports of nausea or vomiting and patient is tolerating tube feeds. Patient will be going to [facility] today. Guarded prognosis and high risk for readmissions given patient's significant comorbidities and overall quality of life being poor. Physical exam: Gen: This is a 63-year-old male who is awake, alert and oriented, nonverbal, baseline, well-developed HEENT: Head is atraumatic, normocephalic. Pupils equal, round. Sclerae is anicteric. NECK: Supple. No JVD. No lymphadenopathy. No thyromegaly. LUNGS: Clear to auscultation. No wheezes or rhonchi. No intercostal retractions. HEART: Regular rate and rhythm. No murmur. ABDOMEN: Soft. Bowel sounds are present. No masses. No tenderness. Distended EXTREMITIES: No pedal edema. No calf tenderness. NEUROLOGICAL: Patient is awake, alert and oriented x3. Cranial nerves 2 through 12 are grossly intact. Please refer to medication reconciliation sheet for a list of medications. The impression and plan of care has been dictated by Paula Ruiz, Nurse Practitioner as directed. Dr. Sebastien MD I have performed a history and examination and MDM of this patient, discussed the same with the dictator, and agree with the dictator's assessment and plan a s written ,documented as a scribe. Based on total visit time, I have performed more than 50% of the visit. Patient Condition at Discharge: Good Plan - Discharge Summary Discharge Rx Participant: No New Discharge Prescriptions: New bisacodyL [Dulcolax] 10 mg RECTAL DAILY suppositor polyethylene glycoL 3350 [Miralax] 17 gm PO DAILY packet Continue Ipratropium-Albuterol Nebulize [Duoneb 0.5 mg-3 mg/3 ml Soln] 3 ml INHALATION RT-Q4H Aspirin 81 mg PEG/G-TUBE DAILY@0900 Acetaminophen Tab [Tylenol] 650 mg PEG/G-TUBE Q4H PRN PRN Reason: Fever And/ Or Pain carBAMazepine [carBAMazepine Oral Susp] 100 mg PEG/G-TUBE TID@0600,1400,2200 Amantadine Hcl Solution 50mg/5ml 100 mg PEG/G-TUBE DAILY@0900 Scopolamine [Scopolamine 1 MG/72 HR patch] 2 patch TRANSDERM Q72H Lactulose 20 gm PEG/G-TUBE TID@0900,1700,2100 Metoprolol Tartrate [Lopressor] 50 mg PEG/G-TUBE BID@0900,2100 Baclofen [Lioresal] 5 mg PEG/G-TUBE TID@0600,1400,2200 tab oxyBUTYnin chloride 5 mg PEG/G-TUBE TID@0600,1400,2200 Atorvastatin [Lipitor] 40 mg PEG/G-TUBE HS Famotidine [Pepcid] 20 mg PEG/G-TUBE DAILY Cefpodoxime Proxetil [Vantin] 200 mg PEG/G-TUBE Q12HR 14 Days #28 tab Lacosamide [Vimpat Oral Soln] 150 mg PO BID@00,1999 #15 ml Discharge Medication List Ipratropium-Albuterol Nebulize [Duoneb 0.5 mg-3 mg/3 ml Soln] 3 ml INHALATION RT-Q4H 12/16/19 [History] Aspirin 81 mg PEG/G-TUBE DAILY@0900 11/27/20 [History] Acetaminophen Tab [Tylenol] 650 mg PEG/G-TUBE Q4H PRN 06/13/21 [History] Metoprolol Tartrate [Lopressor] 50 mg PEG/G-TUBE BID@0900,2100 06/13/21 [History] carBAMazepine [carBAMazepine Oral Susp] 100 mg PEG/G-TUBE TID@0600,1400,2200 07/02/21 [History] Amantadine Hcl Solution 50mg/5ml 100 mg PEG/G-TUBE DAILY@0900 12/22/21 [History] Lactulose 20 gm PEG/G-TUBE TID@0900,1700,2100 01/03/22 [History] Scopolamine [Scopolamine 1 MG/72 HR patch] 2 patch TRANSDERM Q72H 01/03/22 [History] Baclofen [Lioresal] 5 mg PEG/G-TUBE TID@0600,1400,2200 tab 05/03/22 [Rx] oxyBUTYnin chloride 5 mg PEG/G-TUBE TID@0600,1400,2200 12/19/22 [History] Atorvastatin [Lipitor] 40 mg PEG/G-TUBE HS 07/14/23 [History] Famotidine [Pepcid] 20 mg PEG/G-TUBE DAILY 07/14/23 [History] Cefpodoxime Proxetil [Vantin] 200 mg PEG/G-TUBE Q12HR 14 Days #28 tab 09/08/23 [Rx] Lacosamide [Vimpat Oral Soln] 150 mg PO BID@899,1999 #15 ml 09/26/23 [Rx] bisacodyL [Dulcolax] 10 mg RECTAL DAILY suppositor 09/26/23 [Rx] polyethylene glycoL 3350 [Miralax] 17 gm PO DAILY packet 09/26/23 [Rx] Follow up Appointment(s)/Referral(s): DEANGELO VELASQUEZ MD [Primary Care Provider] - 1-2 days Activity/Diet/Wound Care/Special Instructions: Patient will be returning to [facility] Continue aspiration precautions and head of the bed elevated 30-45 at all times as patient is PEG tube only Continue tube feeds with Jevity 1.5 continuous with a goal rate of 60-with total volume 1440 throughout the day and continue with free water boluses every 4 hours of 50 mL's and monitor closely for residuals Activity as tolerated Continue with medications as prescribed Discharge Disposition: TRANSFER TO SNF/ECF
[2023-09-26 16:33] LABS: Eosinophils # (M) 0.51 k/uL (0-0.7); Lymphocytes # (M) 1.41 k/uL (1.0-4.8); Monocytes # (M) 0.77 k/uL (0-1.0); Neutrophils # (M) 3.71 k/uL (1.3-7.7); Neutrophils % (M) 58 %; Nucleated Red Blood Cells 0 /100 WBC (0-0); Total Cells Counted 100
[2023-09-26 18:13] VITALS: BP 128/82; PULSE 83; RESP 19
== END 2023-09-26 20:01 | DRG 640 ==
LOC: EC 16:09 → 5NMEDONC 20:14 → 3SCARD 09-13 06:08 → OBSVTOIN 09-14 08:16
PROVIDERS: ADMIT Hospitalist; ATTEND Hospitalist
PROC: 3E0H76Z Introduction of Nutritional Substance into Lower GI, Via Natural or Artificial Opening (ICD-10-PCS; principal; 2023-09-13)
DX: E87.0 Hyperosmolality and hypernatremia (principal); G93.41 Metabolic encephalopathy; F05 Delirium due to known physiological condition; G82.20 Paraplegia, unspecified; G40.009 Localization-related (focal) (partial) idiopathic epilepsy and epileptic syndromes with seizures of localized onset, not intractable, without status epilepticus; F03.C3 Unspecified dementia, severe, with mood disturbance; G35 Multiple sclerosis; J44.9 Chronic obstructive pulmonary disease, unspecified; I10 Essential (primary) hypertension; E87.1 Hypo-osmolality and hyponatremia; K59.09 Other constipation; K21.9 Gastro-esophageal reflux disease without esophagitis; G50.0 Trigeminal neuralgia; N31.9 Neuromuscular dysfunction of bladder, unspecified; E86.0 Dehydration; K63.89 Other specified diseases of intestine; R47.1 Dysarthria and anarthria; R53.81 Other malaise; R13.10 Dysphagia, unspecified; Z96.0 Presence of urogenital implants; Z93.1 Gastrostomy status; Z99.81 Dependence on supplemental oxygen; Z74.01 Bed confinement status; Z86.718 Personal history of other venous thrombosis and embolism; Z86.19 Personal history of other infectious and parasitic diseases; Z87.440 Personal history of urinary (tract) infections; Z79.82 Long term (current) use of aspirin; Z79.899 Other long term (current) drug therapy; Z88.1 Allergy status to other antibiotic agents; Z86.14 Personal history of Methicillin resistant Staphylococcus aureus infection
CPT/HCPCS: 36415; 74018; 74019; 74022; 74176; 80048; 80053; 80156; 81003; 83605; 83735; 84100; 84145; 84295; 84484; 85025; 85610; 85730; 86140; 87040; 93005; 94640; 94760; 95816; 96361; 96374; 96376; 99285

== ENCOUNTER 2023-10-17 18:05 | Inpatient (IN) | payer MEDICARE, OTHER ==
[2023-10-17 20:17] LABS: Anisocytosis Slight; HGB 13.8 gm/dL (13.0-17.5); Hypochromasia Marked; MCH 25.5 pg (25.0-35.0); MCHC 31.3 g/dL (31.0-37.0); MCV 81.5 fL (80.0-100.0); Mean Platelet Volume 10.4; Platelet Count 206 k/uL (150-450); RBC 5.39 m/uL (4.30-5.90); RDW 17.1 % (11.5-15.5); WBC 13.8 k/uL (3.8-10.6)
[2023-10-17 20:21] LABS: Prothrombin Time 11.1 sec (10.0-12.5)
[2023-10-17 20:23] LABS: Partial Thromboplastin Time 20.6 sec (22.0-30.0)
--- NOTE | 2023-10-17 20:37 | XR ---
EXAMINATION TYPE: XR chest 2V DATE OF EXAM: 10/17/2023 8:08 PM CLINICAL INDICATION:Male, 63 years old with history of Fever; [facility] COMPARISON: Chest radiographs from 09/08/2023 TECHNIQUE: XR chest 2V Frontal and lateral views of the chest. FINDINGS: Lungs/Pleura: Low lung volumes are present. There is no evidence of pleural effusion, focal consolida tion, or pneumothorax. Pulmonary vascularity: Unremarkable. Heart/mediastinum: Cardiomediastinal silhouette is enlarged and stable. Musculoskeletal: No acute osseous pathology. IMPRESSION: Low lung volumes with a generalized hazy appearance which could represent atelectasis versus atypical pneumonia versus pulmonary edema.
[2023-10-17 20:49] LABS: ALT 28 U/L (4-49); African American GFR (CKD) >90 (>60 ml/min/1.73 sqM); Albumin 3.9 g/dL (3.5-5.0); Anion Gap 11 mmol/L; Blood Urea Nitrogen 22 mg/dL (9-20); Calcium 8.9 mg/dL (8.4-10.2); Carbon Dioxide 25 mmol/L (22-30); Chloride 109 mmol/L (98-107); Glucose 90 mg/dL (74-99); Non-African American GFR(CKD) >90 (>60 ml/min/1.73 sqM); Sodium 145 mmol/L (137-145); Total Bilirubin 0.6 mg/dL (0.2-1.3); Total Protein 7.5 g/dL (6.3-8.2)
[2023-10-17 20:55] LABS: AST 34 U/L (17-59); Alkaline Phosphatase 88 U/L (38-126); Potassium 4.4 mmol/L (3.5-5.1)
[2023-10-17 21:13] LABS: Appearance,Urine Clear (Clear); Bacteria,Urine Few /hpf; Bilirubin,Urine Negative (Negative); Blood,Urine Large (Negative); Color,Urine Yellow; Glucose,Urine (UA) Negative (Negative); Hyaline Casts,Urine 1 /lpf (0-2); Ketones,Urine Negative (Negative); Leukocyte Esterase,Urine Large (Negative); Mucus,Urine Occasional /hpf; Nitrite,Urine Positive (Negative); Protein,Urine 1+ (Negative); RBC,Urine >182 /hpf (0-5); Specific Gravity,Urine 1.028 (1.001-1.035); Urobilinogen,Urine <2.0 mg/dL (<2.0); WBC,Urine 24 /hpf (0-5)
[2023-10-17 21:28] LABS: Eosinophils # (M) 0.69 k/uL (0-0.7); Large Platelets Present; Lymphocytes # (M) 0.69 k/uL (1.0-4.8); Monocytes # (M) 2.21 k/uL (0-1.0); Neutrophils # (M) 10.21 k/uL (1.3-7.7); Neutrophils % (M) 74 %; Nucleated Red Blood Cells 0 /100 WBC (0-0); Polychromasia Present; Total Cells Counted 100
--- NOTE | 2023-10-17 22:06 | CT ---
EXAMINATION TYPE: CT abdomen pelvis w con CT DLP: 1775.4 mGycm, Automated exposure control for dose reduction was used. DATE OF EXAM: 10/17/2023 9:47 PM COMPARISON: CT abdomen pelvis most recent from most recent 12/28/2022 and 09/21/2023.. CLINICAL INDICATION:Male, 63 years old with history of abdominal distention; abdominal pain and diste ntion. TECHNIQUE: Axial CT abdomen pelvis w con;Sagittal and coronal reformats were created on a separate w orkstation. pts IV did extravasate 76ml of [id number]. IV was checked with saline flush prior to exam as there was bl ood return and good flow. iv was placed in rt forearm via ultrasound prior to the test. pts rt arm is in a tight contracted position as it is. . IV was took on out pts arm post extravasation , attempted to milk arm to remove some contrast and placed a warm compress on the site. RN and ordering Dr. were made aware of the situation. Contrast used:76ml mL of Isovue 370 with IV Contrast, (none if empty) Oral contrast used: without Oral Contrast (none if empty) FINDINGS: LOWER CHEST: No acute process. ABDOMEN LIVER: Unremarkable GALLBLADDER AND BILE DUCTS: Unremarkable. PANCREAS: Unremarkable. SPLEEN: Unremarkable. ADRENAL GLANDS: Unremarkable. KIDNEYS AND URETERS: No evidence of hydronephrosis or renal calculus. The ureters are unremarkable. Atrophy changes of left kidney. No evidence for obstructive uropathy. PELVIS BLADDER: Nondistended with Tsein catheter in place. REPRODUCTIVE: Unremarkable. ABDOMEN & PELVIS STOMACH AND BOWEL: No evidence of bowel obstruction. PEG tube terminates in the gastric lumen. Modera te amount of stool seen throughout the colon. PERITONEUM/RETROPERITONEUM: No evidence of pneumoperitoneum or free fluid. VASCULATURE: No evidence of aortic aneurysm. MUSCULOSKELETAL: Prior unfused left proximal femur fracture. Deformity to the right proximal femur al so present suggestive of prior fracture injury. Degeneration changes throughout the spine. LYMPH NODES: No gross evidence for lymphadenopathy. SOFT TISSUE/ABDOMINAL WALL: Unremarkable IMPRESSION: 1. No evidence for acute abdominal process. No evidence for infectious process. 2. Moderate amount of stool throughout the colon. 3. Stein catheter in appropriate position. 4. PEG tube in appropriate position. 5. Remote left hip fracture with nonunion.
--- NOTE | 2023-10-17 22:31 | ED ---
General Adult HPI - General Chief complaint: Recheck/Abnormal Lab/Rx Stated complaint: Sepsis Source: EMS Mode of arrival: EMS Limitations: language barrier, altered mental status, physical limitation - History of Present Illness Initial comments: 63-year-old man with past medical history of MS who presents emergency department with concern for sepsis. He was sent by [facility]. Patient does have recurrent UTIs and pneumonia. According to EMS, the doctor did not like the appearance of the patient and had concern for sepsis however did not mention any other symptoms. There was no reported fevers. Patient cannot provide any history therefore HPI is limited - Related Data Home Medications Medication Instructions Recorded Confirmed Aspirin 81 mg PEG/G-TUBE DAILY@0900 11/27/20 10/17/23 Acetaminophen Tab [Tylenol] 650 mg PEG/G-TUBE Q4H PRN 06/13/21 10/17/23 Metoprolol Tartrate [Lopressor] 50 mg PEG/G-TUBE BID@0900,2100 06/13/21 10/17/23 carBAMazepine [carBAMazepine Oral 100 mg PEG/G-TUBE 07/02/21 10/17/23 Susp] TID@0600,1400,2200 Amantadine Hcl Solution 50mg/5ml 100 mg PEG/G-TUBE DAILY@0900 12/22/21 10/17/23 Lactulose 20 gm PEG/G-TUBE TID@0900,1700,2100 01/03/22 10/17/23 Scopolamine [Scopolamine 1 MG/72 2 patch TRANSDERM Q72H 01/03/22 10/17/23 HR patch] oxyBUTYnin chloride 5 mg PEG/G-TUBE TID@0600,1400,2200 12/19/22 10/17/23 Atorvastatin [Lipitor] 40 mg PEG/G-TUBE HS 07/14/23 10/17/23 Famotidine [Pepcid] 20 mg PEG/G-TUBE DAILY 07/14/23 10/17/23 Tobra-Dexamet 0.3-0.1% Eye Lizzy 1 drop RIGHT EYE TID 10/17/23 10/17/23 [Tobradex Ophth Susp] polyethylene glycoL 3350 [Miralax] 17 gm PO HS 10/17/23 10/17/23 Previous Rx's Medication Instructions Recorded Baclofen [Lioresal] 5 mg PEG/G-TUBE TID@0600,1400,2200 05/03/22 tab Lacosamide [Vimpat Oral Soln] 150 mg PO BID@0900,1999 #15 ml 09/26/23 bisacodyL [Dulcolax] 10 mg RECTAL DAILY suppositor 09/26/23 Ipratropium-Albuterol Nebulize 3 ml INHALATION RT-QID each 10/26/23 [Duoneb 0.5 mg-3 mg/3 ml Soln] lisinopriL [Zestril] 2.5 mg PO DAILY 90 Days #90 tab 10/26/23 Amoxic-Pot Clav 875-125Mg 1 each PO Q12HR 30 Days #60 tab 10/27/23 [Augmentin 875-125] Allergies Allergy/AdvReac Type Severity Reaction Status Date / Time meropenem [From Merrem] Allergy Rash/Hives Verified 10/17/23 19:51 ceftolozane [From Zerbaxa] AdvReac Rapid Verified 10/17/23 19:51 Heart Rate tazobactam [From Zerbaxa] AdvReac Rapid Verified 10/17/23 19:51 Heart Rate Review of Systems ROS Statement: Those systems with pertinent positive or pertinent negative responses have been documented in the HPI. ROS Other: All systems not noted in ROS Statement are negative. Past Medical History Past Medical History: Deep Vein Thrombosis (DVT), GERD/Reflux, Hypertension, Musculoskeletal Disorder, Neurologic Disorder, Pneumonia, Seizure Disorder, Skin Disorder Additional Past Medical History / Comment(s): Pt diagnosed with MS at the age of 39 yrs, seizure/pneumonia/UTI with sepsis/respirtory failure/vented, cognitive impairment, sister states when he is feeling well he could speak a few words/nod head appropriately/give thumbs up/roll eyes but when ill is nonverbal, pt has dysphagia/NPO with peg tube, contractures, last seizure 07/2020, trigeminal neuralgia, dysarthria/anarthria/neurogenic bladder with IDC-UTIs/sepsis, multipl e pneumonias, recent seizure-last one 07/03/20, incontinent of stool, pt has had decubitus ulcer coccyx-sister unsure of skin condition at this time, past anemia r/t heparin/epistaxiis which involved nasal packing/transfusions, DVT bilateral arms, hypoxia, oxygen at 2L/NC, L femoral head fracture History of Any Multi-Drug Resistant Organisms: ESBL, MRSA, Other MDRO Date of last positivie culture/infection: 03/09/21-MRSA; 11/23/19 ESBL-E.coli MDRO Source:: Abdomen-Peg site MRSA; Urine -ESBL Past Surgical History: Tonsillectomy Additional Past Surgical History / Comment(s): Gastrostomy, peg tube, I&D coccyx decubitius, bronchoscopy, bilateral lasik eye surgery. Past Anesthesia/Blood Transfusion Reactions: No Reported Reaction Additional Past Anesthesia/Blood Transfusion Reaction / Comment(s): Pt has received blood in past without reaction. Past Psychological History: Depression Smoking Status: Never smoker Past Alcohol Use History: None Reported Past Drug Use History: None Reported - Past Family History Father Family Medical History: Myocardial Infarction ([place]) Mother Family Medical History: Hypertension, Myocardial Infarction ([place]) Additional Family Medical History / Comment(s): Mother of a [place] at the age of 73 yrs. General Exam Limitations: language barrier, altered mental status, physical limitation General appearance: alert, anxious Head exam: Present: atraumatic, normocephalic, normal inspection ENT exam: Present: mucous membranes dry Neck exam: Present: normal inspection. Absent: tenderness, meningismus, lymphadenopathy Respiratory exam: Present: rales, other (tachypnia) Cardiovascular Exam: Present: regular rate, normal rhythm, normal heart sounds. Absent: systolic murmur, diastolic murmur, rubs, gallop, clicks GI/Abdominal exam: Present: soft, distended, normal bowel sounds. Absent: tenderness, guarding, rebound, rigid Extremities exam: Present: other (contracture of extremities, foam boots on b/l feet) Neurological exam: Present: alert Skin exam: Present: diaphoretic Course Vital Signs 10/17/23 10/17/23 10/18/23 18:18 22:28 00:23 Temperature 98.4 F 100.9 F H Pulse Rate 79 82 80 Pulse Rate [ Pulse Oximetery ] Respiratory 24 20 20 Rate Blood Pressure 124/67 140/75 137/88 Blood Pressure [Left Arm] O2 Sat by Pulse 94 L 99 97 Oximetry 10/18/23 10/18/23 10/18/23 00:34 03:26 04:00 Temperature 99 F 98.9 F Pulse Rate 87 95 Pulse Rate [ Pulse Oximetery ] Respiratory 18 Rate Blood Pressure 135/87 Blood Pressure [Left Arm] O2 Sat by Pulse 97 Oximetry 10/18/23 10/18/23 10/18/23 06:06 07:48 07:59 Temperature 99 F Pulse Rate 86 86 80 Pulse Rate [ Pulse Oximetery ] Respiratory 16 Rate Blood Pressure 144/87 Blood Pressure [Left Arm] O2 Sat by Pulse 98 Oximetry 10/18/23 10/18/23 10/18/23 08:00 11:24 11:33 Temperature 98.5 F Pulse Rate 86 82 Pulse Rate [ 86 Pulse Oximetery ] Respiratory 18 Rate Blood Pressure Blood Pressure 135/87 [Left Arm] O2 Sat by Pulse 96 Oximetry 10/18/23 10/18/23 10/18/23 14:00 15:13 15:25 Temperature 98.0 F Pulse Rate 76 76 Pulse Rate [ 84 Pulse Oximetery ] Respiratory 18 Rate Blood Pressure Blood Pressure 119/82 [Left Arm] O2 Sat by Pulse Oximetry 10/18/23 10/18/23 10/18/23 19:40 19:49 21:13 Temperature Pulse Rate 88 84 93 Pulse Rate [ Pulse Oximetery ] Respiratory 18 Rate Blood Pressure 133/86 Blood Pressure [Left Arm] O2 Sat by Pulse 96 Oximetry 10/19/23 10/19/23 10/19/23 01:44 03:13 03:23 Temperature 98.8 F Pulse Rate 83 72 75 Pulse Rate [ Pulse Oximetery ] Respiratory 18 Rate Blood Pressure 116/75 Blood Pressure [Left Arm] O2 Sat by Pulse 94 L Oximetry 10/19/23 10/19/23 03:42 06:35 Temperature 97.8 F Pulse Rate 76 79 Pulse Rate [ Pulse Oximetery ] Respiratory 20 20 Rate Blood Pressure 116/73 133/80 Blood Pressure [Left Arm] O2 Sat by Pulse 94 L 95 Oximetry Medical Decision Making - Medical Decision Making Was pt. sent in by a medical professional or institution (, PA, [employer], urgent care, hospital, or shelter...) When possible be specific @ -ECF Did you speak to anyone other than the patient for history (EMS, parent, family, police, friend...)? What history was obtained from this source @ -EMS Did you review nursing and triage notes (agree or disagree)? Why? @ -I reviewed and agree with nursing and triage notes Were old charts reviewed (outside hosp., previous admission, EMS record, old EKG, old radiological studies, urgent care reports/EKG's, shelter records)? Report findings @ -No old charts were reviewed Differential Diagnosis (chest pain, altered mental status, abdominal pain women, abdominal pain men, vaginal bleeding, weakness, fever, dyspnea, syncope, headache, dizziness, GI bleed, back pain, seizure, CVA, palpatations, mental health, musculoskeletal)? @ -Differential: Pneumonia, viral URI, endocarditis, myocarditis, pericarditis, otitis, sinusitis, peritonsillar Abscess, retropharyngeal Abscess, epiglottitis, peritonitis, appendicitis, Maris cystitis, diverticulitis, hepatitis, colitis, UTI, PID, TOA, pyelonephritis, prostatitis, epididymitis, meningitis, encephalit is, pulmonary embolism, CVA, thyroid storm, pancreatitis, adrenal crisis, cavernous sinus thrombosis, this is not meant to be an all-inclusive list. EKG interpreted by me (3pts min.). @ -yes and demonstrate sinus rhythm with rate of 85. ME interval 148. QRS 86. QTC of 381. No acute ST segment elevations or depressions X-rays interpreted by me (1pt min.). @ -yes, pneumonia CT interpreted by me (1pt min.). @ -yes, no acute process U/S interpreted by me (1pt. min.). @ -None done What testing was considered but not performed or refused? (CT, X-rays, U/S, labs)? Why? @ -None What meds were considered but not given or refused? Why? @ -None Did you discuss the management of the patient with other professionals (professionals i.e. , PA, [employer], lab, RT, psych nurse, 7th grade social studies teacher, forest aide, teacher, surveillance officer, spring encaser)? Give summary @ -dr brenner Was smoking cessation discussed for >3mins.? @ -No Was critical care preformed (if so, how long)? @ -No Were there social determinants of health that impacted care today? How? (Homelessness, low income, unemployed, alcoholism, drug addiction, transportation, low edu. Level, literacy, decrease access to med. care, nursing home, rehab)? @ -[facility] mimially verbal Was there de-escalation of care discussed even if they declined (Discuss DNR or withdrawal of care, Hospice)? DNR status @ -No What co-morbidities impacted this encounter? (DM, HTN, Smoking, COPD, CAD, Cancer, CVA, ARF, Chemo, Hep., AIDS, mental health diagnosis, sleep apnea, morbid obesity)? @ -MS, recurrent uti, chf Was patient admitted / discharged? Hospital course, mention meds given and route, prescriptions, significant lab abnormalities, going to OR and other pertinent info. @ -Upon arrival patient was placed into room 25. Laboratory studies are c onducted. Patient does have a leukocytosis. Pro-Sherman ordered. Urinalysis is abnormal. He does have several ALLERGIES as well as previous resistance. He was given a dose of gentamicin with Dr. howard consult. IV fluids are held as patient does demonstrate concern for congestive heart failure on his chest x- ray. I spoke with Dr. Bundy for the admission Undiagnosed new problem with uncertain prognosis? @ -No Drug Therapy requiring intensive monitoring for toxicity (Heparin, Nitro, Insulin, Cardizem)? @ -No Were any procedures done? @ -No Diagnosis/symptom? @ -acute/recurrent uti, possible pna, SIRS with sepsis Acute, or Chronic, or Acute on Chronic? @ -acute Uncomplicated (without systemic symptoms) or Complicated (systemic symptoms)? @ -complicated Side effects of treatment? @ -No Exacerbation, Progression, or Severe Exacerbation? @ -No Poses a threat to life or bodily function? How? (Chest pain, [place], [place], pneumonia, PE, COPD, DKA, ARF, appy, cholecystitis, CVA, Diverticulitis, Homicidal, Suicidal, threat to staff... and all critical care pts) @ -No - Lab Data Result diagrams: 10/25/23 06:47 10/25/23 07:14 Lab Results 10/17/23 10/17/23 10/17/23 Range/Units 19:36 19:36 19:36 WBC 13.8 H (3.8-10.6) k/uL RBC 5.39 (4.30-5.90) m/uL Hgb 13.8 (13.0-17.5) gm/dL Hct 44.0 (39.0-53.0) % MCV 81.5 (80.0-100.0) fL MCH 25.5 (25.0-35.0) pg MCHC 31.3 (31.0-37.0) g/dL RDW 17.1 H (11.5-15.5) % Plt Count 206 (150-450) k/uL MPV 10.4 Neutrophils % Not Reportable Neutrophils % (Manual) 74 % Lymphocytes % Not Reportable Lymphocytes % (Manual) 5 % Monocytes % Not Reportable Monocytes % (Manual) 16 % Eosinophils % Not Reportable Eosinophils % (Manual) 5 % Basophils % Not Reportable Neutrophils # Not Reportable Neutrophils # (Manual) 10.21 H (1.3-7.7) k/uL Lymphocytes # Not Reportable Lymphocytes # (Manual) 0.69 L (1.0-4.8) k/uL Monocytes # Not Reportable Monocytes # (Manual) 2.21 H (0-1.0) k/uL Eosinophils # Not Reportable Eosinophils # (Manual) 0.69 (0-0.7) k/uL Basophils # Not Reportable Nucleated RBCs 0 (0-0) /100 WBC Manual Slide Review Performed Large Platelets Present Polychromasia Present Hypochromasia Marked Anisocytosis Slight PT 11.1 (10.0-12.5) sec INR 1.0 (<1.2) APTT 20.6 L (22.0-30.0) sec Sodium (137-145) mmol/L Potassium (3.5-5.1) mmol/L Chloride (98-107) mmol/L Carbon Dioxide (22-30) mmol/L Anion Gap mmol/L BUN (9-20) mg/dL Creatinine (0.66-1.25) mg/dL Est GFR (CKD-EPI)AfAm (>60 ml/min/1.73 sqM) Est GFR (CKD-EPI)NonAf (>60 ml/min/1.73 sqM) Glucose (74-99) mg/dL Lactic Ac Sepsis Rflx Plasma Lactic Acid [place] (0.7-2.0) mmol/L Calcium (8.4-10.2) mg/dL Total Bilirubin (0.2-1.3) mg/dL AST (17-59) U/L ALT (4-49) U/L Alkaline Phosphatase (38-126) U/L NT-Pro-B Natriuret Pep pg/mL Total Protein (6.3-8.2) g/dL Albumin (3.5-5.0) g/dL Procalcitonin (0.02-0.09) ng/mL Urine Color Yellow Urine Appearance Clear (Clear) Urine pH 7.0 (5.0-8.0) Ur Specific [place] 1.028 (1.001-1.035) Urine Protein 1+ H (Negative) Urine Glucose (UA) Negative (Negative) Urine Ketones Negative (Negative) Urine Blood Large H (Negative) Urine Nitrite Positive (Negative) Urine Bilirubin Negative (Negative) Urine Urobilinogen <2.0 (<2.0) mg/dL Ur Leukocyte Esterase Large H (Negative) Urine RBC >182 H (0-5) /hpf Urine WBC 24 H (0-5) /hpf Urine WBC Clumps Rare H (None) /hpf Urine Bacteria Few H (None) /hpf Hyaline Casts 1 (0-2) /lpf Urine Mucus Occasional H (None) /hpf Influenza Type A (PCR) (Not Detectd) Influenza Type B (PCR) (Not Detectd) RSV (PCR) (Not Detectd) SARS-CoV-2 (PCR) (Not Detectd) 10/17/23 10/17/23 10/17/23 Range/Units 19:36 19:36 19:36 WBC (3.8-10.6) k/uL RBC (4.30-5.90) m/uL Hgb (13.0-17.5) gm/dL Hct (39.0-53.0) % MCV (80.0-100.0) fL MCH (25.0-35.0) pg MCHC (31.0-37.0) g/dL RDW (11.5-15.5) % Plt Count (150-450) k/uL MPV Neutrophils % Neutrophils % (Manual) % Lymphocytes % Lymphocytes % (Manual) % Monocytes % Monocytes % (Manual) % Eosinophils % Eosinophils % (Manual) % Basophils % Neutrophils # Neutrophils # (Manual) (1.3-7.7) k/uL Lymphocytes # Lymphocytes # (Manual) (1.0-4.8) k/uL Monocytes # Monocytes # (Manual) (0-1.0) k/uL Eosinophils # Eosinophils # (Manual) (0-0.7) k/uL Basophils # Nucleated RBCs (0-0) /100 WBC Manual Slide Review Large Platelets Polychromasia Hypochromasia Anisocytosis PT (10.0-12.5) sec INR (<1.2) APTT (22.0-30.0) sec Sodium 145 (137-145) mmol/L Potassium 4.4 (3.5-5.1) mmol/L Chloride 109 H (98-107) mmol/L Carbon Dioxide 25 (22-30) mmol/L Anion Gap 11 mmol/L BUN 22 H (9-20) mg/dL Creatinine 0.72 (0.66-1.25) mg/dL Est GFR (CKD-EPI)AfAm >90 (>60 ml/min/1.73 sqM) Est GFR (CKD-EPI)NonAf >90 (>60 ml/min/1.73 sqM) Glucose 90 (74-99) mg/dL Lactic Ac Sepsis Rflx Plasma Lactic Acid [place] 2.8 H* (0.7-2.0) mmol/L Calcium 8.9 (8.4-10.2) mg/dL Total Bilirubin 0.6 (0.2-1.3) mg/dL AST 34 (17-59) U/L ALT 28 (4-49) U/L Alkaline Phosphatase 88 (38-126) U/L NT-Pro-B Natriuret Pep pg/mL Total Protein 7.5 (6.3-8.2) g/dL Albumin 3.9 (3.5-5.0) g/dL Procalcitonin (0.02-0.09) ng/mL Urine Color Urine Appearance (Clear) Urine pH (5.0-8.0) Ur Specific [place] (1.001-1.035) Urine Protein (Negative) Urine Glucose (UA) (Negative) Urine Ketones (Negative) Urine Blood (Negative) Urine Nitrite (Negative) Urine Bilirubin (Negative) Urine Urobilinogen (<2.0) mg/dL Ur Leukocyte Esterase (Negative) Urine RBC (0-5) /hpf Urine WBC (0-5) /hpf Urine WBC Clumps (None) /hpf Urine Bacteria (None) /hpf Hyaline Casts (0-2) /lpf Urine Mucus (None) /hpf Influenza Type A (PCR) Not Detected (Not Detectd) Influenza Type B (PCR) Not Detected (Not Detectd) RSV (PCR) Not Detected (Not Detectd) SARS-CoV-2 (PCR) Not Detected (Not Detectd) 10/17/23 10/17/23 10/17/23 Range/Units 20:53 20:53 21:10 WBC (3.8-10.6) k/uL RBC (4.30-5.90) m/uL Hgb (13.0-17.5) gm/dL Hct (39.0-53.0) % MCV (80.0-100.0) fL MCH (25.0-35.0) pg MCHC (31.0-37.0) g/dL RDW (11.5-15.5) % Plt Count (150-450) k/uL MPV Neutrophils % Neutrophils % (Manual) % Lymphocytes % Lymphocytes % (Manual) % Monocytes % Monocytes % (Manual) % Eosinophils % Eosinophils % (Manual) % Basophils % Neutrophils # Neutrophils # (Manual) (1.3-7.7) k/uL Lymphocytes # Lymphocytes # (Manual) (1.0-4.8) k/uL Monocytes # Monocytes # (Manual) (0-1.0) k/uL Eosinophils # Eosinophils # (Manual) (0-0.7) k/uL Basophils # Nucleated RBCs (0-0) /100 WBC Manual Slide Review Large Platelets Polychromasia Hypochromasia Anisocytosis PT (10.0-12.5) sec INR (<1.2) APTT (22.0-30.0) sec Sodium (137-145) mmol/L Potassium (3.5-5.1) mmol/L Chloride (98-107) mmol/L Carbon Dioxide (22-30) mmol/L Anion Gap mmol/L BUN (9-20) mg/dL Creatinine (0.66-1.25) mg/dL Est GFR (CKD-EPI)AfAm (>60 ml/min/1.73 sqM) Est GFR (CKD-EPI)NonAf (>60 ml/min/1.73 sqM) Glucose (74-99) mg/dL Lactic Ac Sepsis Rflx Y Plasma Lactic Acid [place] (0.7-2.0) mmol/L Calcium (8.4-10.2) mg/dL Total Bilirubin (0.2-1.3) mg/dL AST (17-59) U/L ALT (4-49) U/L Alkaline Phosphatase (38-126) U/L NT-Pro-B Natriuret Pep 557 pg/mL Total Protein (6.3-8.2) g/dL Albumin (3.5-5.0) g/dL Procalcitonin 0.10 H (0.02-0.09) ng/mL Urine Color Urine Appearance (Clear) Urine pH (5.0-8.0) Ur Specific [place] (1.001-1.035) Urine Protein (Negative) Urine Glucose (UA) (Negative) Urine Ketones (Negative) Urine Blood (Negative) Urine Nitrite (Negative) Urine Bilirubin (Negative) Urine Urobilinogen (<2.0) mg/dL Ur Leukocyte Esterase (Negative) Urine RBC (0-5) /hpf Urine WBC (0-5) /hpf Urine WBC Clumps (None) /hpf Urine Bacteria (None) /hpf Hyaline Casts (0-2) /lpf Urine Mucus (None) /hpf Influenza Type A (PCR) (Not Detectd) Influenza Type B (PCR) (Not Detectd) RSV (PCR) (Not Detectd) SARS-CoV-2 (PCR) (Not Detectd) Disposition Clinical Impression: SIRS (systemic inflammatory response syndrome), Catheter-associated urinary tract infection Disposition: [facility] Condition: Stable Is patient prescribed a controlled substance at d/c from ED?: No Time of Disposition: 23:51 Decision to Admit Reason: Admit from EC Decision Date: 10/17/23 Decision Time: 23:51
[2023-10-17] MEDS ORDERED: GENTAMICIN PER PHARMACY MISCELLANE SCH (22:45)
[2023-10-17] MEDS ORDERED: GENTAMICIN 360 MG in SODIUM CHLORIDE 0.9% 100 ML IVPB SCH (23:30)
[2023-10-17] MEDS ORDERED: NALOXONE 0.4 MG/ML 1 ML VIAL IV PRN (23:37)
[2023-10-17] MEDS ORDERED: BACLOFEN 10 MG TAB PO STA (23:47)
[2023-10-17] MEDS ORDERED: LACOSAMIDE 150 MG TABLET PO STA (23:49)
[2023-10-17] MEDS ORDERED: LACTULOSE 20 GM/30 ML CUP PO ONE (23:50)
[2023-10-17] MEDS: TOBRA-DEXAMET 0.3-0.1% OPHTH DROPS 2.5 ML BTL RIGHT EYE SCH (23:55)
[2023-10-17] MEDS: polyethylene glycoL 3350 17 GM POWD.PACK PO SCH (23:56)
[2023-10-17] MEDS: ATORVASTATIN 40 MG TAB PEG/G-TUBE SCH (23:56)
[2023-10-18] MEDS: SCOPOLAMINE 1 MG/72 HR PATCH TRANSDERM SCH (00:16)
[2023-10-18] MEDS: IPRATROPIUM-ALBUTEROL 3 ML NEB INHALATION SCH ×7 (00:22→23:35)
[2023-10-18] MEDS: ATORVASTATIN 40 MG TAB PEG/G-TUBE SCH ×2 (00:22→21:02)
[2023-10-18] MEDS: ACETAMINOPHEN TAB 325 MG TAB PEG/G-TUBE PRN (00:23)
[2023-10-18] MEDS: oxyBUTYnin chloride 5 MG TAB PEG/G-TUBE SCH ×3 (06:41→21:03)
[2023-10-18] MEDS: BACLOFEN 10 MG TAB PEG/G-TUBE SCH ×3 (06:41→21:02)
[2023-10-18 08:07] LABS: Anisocytosis Slight; Basophils % (A) 0 %; Eosinophils # (A) 0.3 k/uL (0-0.7); Eosinophils % (A) 3 %; HCT 41.6 % (39.0-53.0); HGB 13.2 gm/dL (13.0-17.5); Hypochromasia Moderate; Lymphocytes # (A) 0.9 k/uL (1.0-4.8); Lymphocytes % (A) 10 %; MCH 25.7 pg (25.0-35.0); MCHC 31.8 g/dL (31.0-37.0); MCV 80.8 fL (80.0-100.0); Mean Platelet Volume 9.1; Microcytosis Slight; Monocytes # (A) 0.6 k/uL (0-1.0); Monocytes % (A) 6 %; Neutrophils % (A) 77 %; Platelet Count 186 k/uL (150-450); RBC 5.14 m/uL (4.30-5.90); RDW 17.5 % (11.5-15.5)
[2023-10-18 08:22] LABS: African American GFR (CKD) >90 (>60 ml/min/1.73 sqM); Anion Gap 8 mmol/L; Blood Urea Nitrogen 20 mg/dL (9-20); Calcium 8.7 mg/dL (8.4-10.2); Carbon Dioxide 24 mmol/L (22-30); Chloride 113 mmol/L (98-107); Glucose 116 mg/dL (74-99); Non-African American GFR(CKD) >90 (>60 ml/min/1.73 sqM); Potassium 4.3 mmol/L (3.5-5.1); Sodium 145 mmol/L (137-145)
[2023-10-18] MEDS: ASPIRIN 81 MG PEG/G-TUBE SCH (09:00)
[2023-10-18] MEDS ORDERED: FAMOTIDINE 8 MG/ML ORAL.SUSP PEG/G-TUBE SCH (09:00)
[2023-10-18] MEDS: METOPROLOL TARTRATE 50 MG TAB PEG/G-TUBE SCH ×2 (09:02→21:02)
[2023-10-18] MEDS: LACTULOSE 20 GM/30 ML CUP PEG/G-TUBE SCH ×3 (09:02→21:02)
[2023-10-18] MEDS: FAMOTIDINE 20 MG TAB PEG/G-TUBE SCH (09:02)
[2023-10-18] MEDS: bisacodyL 10 MG SUPP RECTAL SCH (09:02)
[2023-10-18] MEDS: TOBRA-DEXAMET 0.3-0.1% OPHTH DROPS 2.5 ML BTL RIGHT EYE SCH ×3 (09:03→21:04)
[2023-10-18] MEDS: LACOSAMIDE 150 MG TABLET PEG/G-TUBE SCH ×2 (09:21→21:02)
[2023-10-18] MEDS: ERTAPENEM 1 GM in SODIUM CHLORIDE 0.9% 50 ML IVPB SCH (11:43)
[2023-10-18 14:17] LABS: Appearance,Urine Clear (Clear); Bacteria,Urine Rare /hpf; Bilirubin,Urine Negative (Negative); Blood,Urine Negative (Negative); Color,Urine Yellow; Glucose,Urine (UA) Negative (Negative); Ketones,Urine Negative (Negative); Leukocyte Esterase,Urine Moderate (Negative); Mucus,Urine Rare /hpf; Nitrite,Urine Negative (Negative); Protein,Urine 2+ (Negative); WBC,Urine 36 /hpf (0-5)
[2023-10-18 14:33] LABS: Specific Gravity,Urine >1.050 (1.001-1.035)
[2023-10-18] MEDS: polyethylene glycoL 3350 17 GM POWD.PACK PO SCH (21:02)
--- NOTE | 2023-10-18 22:06 | P.CONS ---
History of Present Illness - Reason for Consult Consult date: 10/18/23 - History of Present Illness Patient is a 63-year-old male with a past medical his significant for MS and this patient who did have a bedbound state and has multiple catheter associated tract infection as well as pneumonia's patient has been brought into the hospital with concern for sepsis patient was sent by the [facility] staff apparently the doctor did not like appearance of patient on presentation to [facility] ER did have a fever of 100.9 degrees for night patient was not tachycardic hypotensive or hypoxic and no need for supplemental oxygen patient did have a white count of 13.8 with a left shift lactic acid was elevated creatinine was normal liver isms are normal urine has been positive influenza RSV COVID testing was negative patient did have a chest x-ray low lung volumes with generalized hazy appearance which could represent atelectasis versus atypical pneumonia patient also have a CT of abdominal pelvis no evidence for acute intra-abdominal process, the patient was started on gentamicin because of his allergies infectious disease was consulted for further management of antibio tic therapy most information has been obtained from the chart and nursing staff as the patient cannot provide any history Past Medical History Past Medical History: Deep Vein Thrombosis (DVT), GERD/Reflux, Hypertension, Musculoskeletal Disorder, Neurologic Disorder, Pneumonia, Seizure Disorder, Skin Disorder Additional Past Medical History / Comment(s): Pt diagnosed with MS at the age of 39 yrs, seizure/pneumonia/UTI with sepsis/respirtory failure/vented, cognitive impairment, sister states when he is feeling well he could speak a few words/nod head appropriately/give thumbs up/roll eyes but when ill is nonverbal, pt has dysphagia/NPO with peg tube, contractures, last seizure 07/2020, trigeminal neuralgia, dysarthria/anarthria/neurogenic bladder with IDC-UTIs/sepsis, multiple pneumonias, recent seizure-last one 07/03/20, incontinent of stool, pt has had decubitus ulcer coccyx-sister unsure of skin condition at this time, p ast anemia r/t heparin/epistaxiis which involved nasal packing/transfusions, DVT bilateral arms, hypoxia, oxygen at 2L/NC, L femoral head fracture History of Any Multi-Drug Resistant Organisms: ESBL, MRSA, Other MDRO Year Discovered:: 03/09/21-MRSA; 11/23/19 ESBL-E.coli MDRO Source:: Abdomen-Peg site MRSA; Urine -ESBL Past Surgical History: Tonsillectomy Additional Past Surgical History / Comment(s): Gastrostomy, peg tube, I&D coccyx decubitius, bronchoscopy, bilateral lasik eye surgery. Past Anesthesia/Blood Transfusion Reactions: No Reported Reaction Additional Past Anesthesia/Blood Transfusion Reaction / Comm: Pt has received blood in past without reaction. Past Psychological History: Depression Smoking Status: Never smoker Past Alcohol Use History: None Reported Past Drug Use History: None Reported - Past Family History Father Family Medical History: Myocardial Infarction (SD) Mother Family Medical History: Hypertension, Myocardial Infarction (SD) Additional Family Medical History / Comment(s): Mother of a SD at the age of 73 yrs. Medications and Allergies Home Medications Medication Instructions Recorded Confirmed Type Ipratropium-Albuterol Nebulize 3 ml INHALATION RT-Q4H 12/16/19 10/17/23 History [Duoneb 0.5 mg-3 mg/3 ml Soln] Aspirin 81 mg PEG/G-TUBE DAILY@0900 11/27/20 10/17/23 History Acetaminophen Tab [Tylenol] 650 mg PEG/G-TUBE Q4H PRN 06/13/21 10/17/23 History Metoprolol Tartrate [Lopressor] 50 mg PEG/G-TUBE BID@0900,2100 06/13/21 10/17/23 History carBAMazepine [carBAMazepine Oral 100 mg PEG/G-TUBE 07/02/21 10/17/23 History Susp] TID@0600,1400,2200 Amantadine Hcl Solution 50mg/5ml 100 mg PEG/G-TUBE DAILY@0900 12/22/21 10/17/23 History Lactulose 20 gm PEG/G-TUBE TID@0900,1700,2100 01/03/22 10/17/23 History Scopolamine [Scopolamine 1 MG/72 2 patch TRANSDERM Q72H 01/03/22 10/17/23 History HR patch] Baclofen [Lioresal] 5 mg PEG/G-TUBE TID@0600,1400,2200 05/03/22 10/17/23 Rx tab oxyBUTYnin chloride 5 mg PEG/G-TUBE TID@0600,1400,2200 12/19/22 10/17/23 History Atorvastatin [Lipitor] 40 mg PEG/G-TUBE HS 07/14/23 10/17/23 History Famotidine [Pepcid] 20 mg PEG/G-TUBE DAILY 07/14/23 10/17/23 History Lacosamide [Vimpat Oral Soln] 150 mg PO BID@0900,2000 #15 ml 09/26/23 10/17/23 Rx bisacodyL [Dulcolax] 10 mg RECTAL DAILY suppositor 09/26/23 10/17/23 Rx Tobra-Dexamet 0.3-0.1% Eye Lizzy 1 drop RIGHT EYE TID 10/17/23 10/17/23 History [Tobradex Ophth Susp] polyethylene glycoL 3350 [Miralax] 17 gm PO HS 10/17/23 10/17/23 History Allergies Allergy/AdvReac Type Severity Reaction Status Date / Time meropenem [From Merrem] Allergy Rash/Hives Verified 10/17/23 19:51 ceftolozane [From Zerbaxa] AdvReac Rapid Verified 10/17/23 19:51 Heart Rate tazobactam [From Zerbaxa] AdvReac Rapid Verified 10/17/23 19:51 Heart Rate Physical Exam Vitals: Vital Signs Temp Pulse Pulse Resp BP BP Pulse Ox 10/18/23 08:00 98.5 F 86 18 135/87 96 10/18/23 07:59 80 10/18/23 07:48 86 10/18/23 06:06 99 F 86 16 144/87 98 10/18/23 04:00 98.9 F 95 18 135/87 97 10/18/23 03:26 99 F 10/18/23 00:34 87 10/18/23 00:23 100.9 F H 80 20 137/88 97 10/17/23 22:28 82 20 140/75 99 10/17/23 18:18 98.4 F 79 24 124/67 94 L Intake and Output 10/17/23 10/18/23 10/18/23 22:59 06:59 14:59 Other: Voiding Method Indwelling Catheter Weight 86.183 kg Results CBC & Chem 7: 10/18/23 07:42 10/18/23 07:42 Labs: Abnormal Lab Results - Last 24 Hours (Table) 10/17/23 10/17/23 10/17/23 Range/Units 19:36 19:36 19:36 WBC 13.8 H (3.8-10.6) k/uL RDW 17.1 H (11.5-15.5) % Neutrophils # (Manual) 10.21 H (1.3-7.7) k/uL Lymphocytes # (1.0-4.8) k/uL Lymphocytes # (Manual) 0.69 L (1.0-4.8) k/uL Monocytes # (Manual) 2.21 H (0-1.0) k/uL APTT 20.6 L (22.0-30.0) sec Chloride (98-107) mmol/L BUN (9-20) mg/dL Glucose (74-99) mg/dL Plasma Lactic Acid Taurus (0.7-2.0) mmol/L Procalcitonin (0.02-0.09) ng/mL Urine Protein 1+ H (Negative) Urine Blood Large H (Negative) Ur Leukocyte Esterase Large H (Negative) Urine RBC >182 H (0-5) /hpf Urine WBC 24 H (0-5) /hpf Urine WBC Clumps Rare H (None) /hpf Urine Bacteria Few H (None) /hpf Urine Mucus Occasional H (None) /hpf 10/17/23 10/17/23 10/17/23 Range/Units 19:36 19:36 20:53 WBC (3.8-10.6) k/uL RDW (11.5-15.5) % Neutrophils # (Manual) (1.3-7.7) k/uL Lymphocytes # (1.0-4.8) k/uL Lymphocytes # (Manual) (1.0-4.8) k/uL Monocytes # (Manual) (0-1.0) k/uL APTT (22.0-30.0) sec Chloride 109 H (98-107) mmol/L BUN 22 H (9-20) mg/dL Glucose (74-99) mg/dL Plasma Lactic Acid Taurus 2.8 H* (0.7-2.0) mmol/L Procalcitonin 0.10 H (0.02-0.09) ng/mL Urine Protein (Negative) Urine Blood (Negative) Ur Leukocyte Esterase (Negative) Urine RBC (0-5) /hpf Urine WBC (0-5) /hpf Urine WBC Clumps (None) /hpf Urine Bacteria (None) /hpf Urine Mucus (None) /hpf 10/18/23 10/18/23 Range/Units 07:42 07:42 WBC (3.8-10.6) k/uL RDW 17.5 H (11.5-15.5) % Neutrophils # (Manual) (1.3-7.7) k/uL Lymphocytes # 0.9 L (1.0-4.8) k/uL Lymphocytes # (Manual) (1.0-4.8) k/uL Monocytes # (Manual) (0-1.0) k/uL APTT (22.0-30.0) sec Chloride 113 H (98-107) mmol/L BUN (9-20) mg/dL Glucose 116 H (74-99) mg/dL Plasma Lactic Acid Taurus (0.7-2.0) mmol/L Procalcitonin (0.02-0.09) ng/mL Urine Protein (Negative) Urine Blood (Negative) Ur Leukocyte Esterase (Negative) Urine RBC (0-5) /hpf Urine WBC (0-5) /hpf Urine WBC Clumps (None) /hpf Urine Bacteria (None) /hpf Urine Mucus (None) /hpf Assessment and Plan Plan: 1patient presented to hospital with sepsis in this patient who did have fever elevated white count source is likely catheter associated tract infection in this patient who has been infected with drug-resistant pathogen we will need to cover for resistant gram-negative, clinically doubt pneumonia patient is breathing comfortably without need for supplemental oxygen 2-patient with multiple antibiotic ALLERGIES that would limit the number of antibiotic safe to use 3-change Stein catheter. Obtain UA and urine culture from the new Stein 4-we will empirically start the patient on ertapenem while waiting for the culture to finalize We will follow on clinical condition and cultures to further adjust medication if needed Thank you for this consultation we will follow the patient along with you Dictation was produced using [employer] software. please excuse any grammatical, word or spelling errors. Time with Patient: Greater than 30
[2023-10-19] MEDS: IPRATROPIUM-ALBUTEROL 3 ML NEB INHALATION SCH ×5 (03:13→21:29)
--- NOTE | 2023-10-19 03:37 | HP ---
HISTORY AND PHYSICAL HISTORY OF PRESENT ILLNESS: A 63-year-old white male with UTI and leukocytosis, generalized weakness, admitted to the hospital for infection and Infectious Disease is on consult. History of MS, recurrent UTIs, pneumonia, possible sepsis. The patient was sent to the hospital for admission due to altered mental status. PAST MEDICAL HISTORY: Reviewed. ALLERGIES: Reviewed. PAST SURGICAL HISTORY: Tonsillectomy, gastrectomy, PEG tube, coccyx decubitus, bronchoscopy, bilateral LASIK eye surgery. SOCIAL HISTORY: Does not smoke. No alcohol. Not depressed. FAMILY HISTORY: Reviewed. PHYSICAL EXAMINATION: VITAL SIGNS: O2 of 94%, pulse 87, respiratory rate 18 to 20. Vital signs are stable. CARDIOVASCULAR: S1, S2. ABDOMEN: Soft. HEMATOLOGY: Negative Homans. PSYCH: Fair mood and affect. NEUROLOGIC: Alert and oriented x3. ENT: Within normal limits. ASSESSMENT: Urinary tract infection, metabolic encephalopathy, possible sepsis. Continue current treatment. Await for further urine cultures. Over 182 white cells in the urine. Nitrite positive. Prognosis guarded. MMODL / IJN: [id number] /
[2023-10-19] MEDS: oxyBUTYnin chloride 5 MG TAB PEG/G-TUBE SCH ×3 (06:35→20:22)
[2023-10-19] MEDS: BACLOFEN 10 MG TAB PEG/G-TUBE SCH ×3 (06:35→20:22)
[2023-10-19] MEDS: ACETAMINOPHEN TAB 325 MG TAB PEG/G-TUBE PRN (06:54)
[2023-10-19] MEDS: FAMOTIDINE 20 MG TAB PEG/G-TUBE SCH (08:56)
[2023-10-19] MEDS: LACOSAMIDE 150 MG TABLET PEG/G-TUBE SCH ×2 (08:56→20:22)
[2023-10-19] MEDS: ASPIRIN 81 MG PEG/G-TUBE SCH (08:56)
[2023-10-19] MEDS: bisacodyL 10 MG SUPP RECTAL SCH (08:56)
[2023-10-19] MEDS: TOBRA-DEXAMET 0.3-0.1% OPHTH DROPS 2.5 ML BTL RIGHT EYE SCH ×3 (08:56→20:21)
[2023-10-19] MEDS: METOPROLOL TARTRATE 50 MG TAB PEG/G-TUBE SCH ×2 (08:57→20:21)
[2023-10-19] MEDS: LACTULOSE 20 GM/30 ML CUP PEG/G-TUBE SCH ×3 (08:58→20:22)
--- NOTE | 2023-10-19 10:43 | P.PN ---
Subjective Progress Note Date: 10/19/23 Principal diagnosis: Reason for follow-up is catheter associated UTI and positive blood culture Patient is a 63-year-old male with a past medical his significant for MS and this patient who did have a bedbound state and has multiple catheter associated tract infection as well as pneumonia's patient has been brought into the hospital with concern for sepsis, patient did have significantly positive UA elevated white count concerning for catheter associated UTI blood culture subsequently came back positive with staph epi. On today's evaluation that is 10/19/2023 patient did have resolution of his fever and is afebrile this morning the patient is breathing comfortably on room air patient seem to be comfortable in no distress no vomiting diarrhea or urinary changes reported by the nursing staff. Patient white count of 9.0 creatinine 0.73 as of yesterday blood culture with staph epi 1 bottle Objective - Vital Signs Vital signs: Vital Signs Temp 98.1 F 10/19/23 07:59 Pulse 78 10/19/23 08:15 Resp 18 10/19/23 08:15 BP 148/79 10/19/23 07:59 Pulse Ox 92 L 10/19/23 07:59 FiO2 Intake & Output 10/18/23 10/19/23 10/19/23 18:59 06:59 18:59 Output Total 1000 300 Balance -1000 -300 Output: Urine 1000 300 Other: Voiding Method Indwelling Catheter - Exam GENERAL DESCRIPTION: Middle-age male lying in bed in no distress RESPIRATORY SYSTEM: Unlabored breathing , decreased breath sounds at bases HEART: S1 S2 regular rate and rhythm , ABDOMEN: Soft , no tenderness EXTREMITIES: No edema feet - Labs CBC & Chem 7: 10/18/23 07:42 10/18/23 07:42 Labs: Abnormal Lab Results - Last 24 Hours (Table) 10/18/23 Range/Units 14:05 Ur Specific [place] >1.050 H (1.001-1.035) Urine Protein 2+ H (Negative) Ur Leukocyte Esterase Moderate H (Negative) Urine WBC 36 H (0-5) /hpf Urine Bacteria Rare H (None) /hpf Urine Mucus Rare H (None) /hpf Microbiology - Last 24 Hours (Table) 10/17/23 19:40 Blood Culture Gram Stain - Preliminary Blood 10/17/23 19:45 Blood Culture - Preliminary Blood Assessment and Plan (1) Positive blood culture Current Visit: Yes Status: Acute Code(s): R78.81 - BACTEREMIA SNOMED Code(s): 607891566 (2) Allergy to multiple antibiotics Current Visit: Yes Status: Acute Code(s): Z88.1 - ALLERGY STATUS TO OTHER ANTIBIOTIC AGENTS SNOMED Code(s): 327101019 (3) Catheter-associated urinary tract infection Current Visit: Yes Status: Acute Code(s): T83.511A - I/I REACT D/T INDWELLING URETHRAL CATHETER, INIT; N39.0 - URINARY TRACT INFECTION, SITE NOT SPECIFIED SNOMED Code(s): 842335443 Plan: 1patient presented to hospital with sepsis in this patient who did have fever elevated white count source is likely catheter associated tract infection in this patient who has been infected with drug-resistant pathogen we will need to cover for resistant gram-negative, clinically doubt pneumonia patient is breathing comfortably without need for supplemental oxygen 2-patient with multiple antibiotic ALLERGIES that would limit the number of antibiotic safe to use 3-patient Stein catheter has been changed repeat UA and initial cultures currently pending 4-patient did have a positive blood culture with staph epi likely skin con tamination no need for vancomycin blood cultures will be repeated 5patient to continue with the Invanz while waiting for the culture to finalize Dictation was produced using [employer] dictation software. please excuse any grammatical, word or spelling errors. Time with Patient: Less than 30
--- NOTE | 2023-10-19 11:16 | CDI ---
Documentation Clarification Form Date: 10/19/2023 10:52:30 AM From: Negin Salgado RN CCDS Phone: [phone] Admit Date: 10/17/2023 11:37:00 PM Patient Name: Chris Marvin Visit Number: [id number] Discharge Date: ATTENTION: The Clinical Documentation Specialists (CDI) and [facility] Coding Staff appreciate your assistance in clarifying documentation. Please respond to the clarification below the line at the bottom and electronically sign. The CDI & [facility] Coding staff will review the response and follow-up if needed. Please note: Queries are made part of the Legal Health Record. If you have any questions, please contact the author of this message via ITS. Dr. Ousmane Bundy Catheter associated urinary tract infection is documented 10/17, ED note. Additional clarification regarding the etiology of the UTI is requested. History/Risk Factors: 63-year-old male presents to the ED via EMS from [facility] for concerns of sepsis. The patient does have recurrent UTIs and pneumonia. Medical History: MS, Decubitus ulcer, sepsis and UTIs. 10/17, H&P. Clinical Indicators: Urinalysis, 10/17: Protein 1+, Blood large, Nitrate positive, Leukocyte esterase, large, RBC >182, Wbc 24, Bacteria few. Lab results, 10/17: Wbc 13.8; Neutrophils 10.21; Lactic acid 2.8 Nursing urinary catheter assessment, 10/18: patient had a urethral catheter discontinued on 10/[address] order. Treatment: 10/17 Gentamicin 360mg IVPB x 1; 10/18 Ertapenem 1gm IVPB x 1 Please clarify the etiology of the UTI, if known: [ ] Stein catheter [ ] UTI not related to catheter [ ] Other condition, please specify [ ] Unable to determine (Template Last Revised: November 2020) MTDD
[2023-10-19 11:24] LABS: Glucose,Whole Blood 88 mg/dL (70-110)
[2023-10-19] MEDS: ERTAPENEM 1 GM in SODIUM CHLORIDE 0.9% 50 ML IVPB SCH (11:50)
[2023-10-19 16:54] LABS: Glucose,Whole Blood 76 mg/dL (70-110)
[2023-10-19] MEDS: polyethylene glycoL 3350 17 GM POWD.PACK PO SCH (20:22)
[2023-10-19] MEDS: ATORVASTATIN 40 MG TAB PEG/G-TUBE SCH (20:22)
--- NOTE | 2023-10-19 21:05 | PN ---
PROGRESS NOTE SUBJECTIVE: Chris Marvin has catheter-associated UTI, positive blood culture for MS, resolution of the fever this morning. Breathing comfortably on room air. No acute distress. No nausea, vomiting, or diarrhea. Blood culture with Staph epi, 1 bottle. OBJECTIVE: VITAL SIGNS: Blood pressure 148/79, O2 92 on room air, respiratory rate 16 to 18, pulse 78, temp 98.1. CARDIOVASCULAR: S1, S2. LUNGS: Decreased breath sounds, scattered wheeze. EXTREMITIES: No edema. Labs reviewed. Positive blood culture, multiple allergy to antibiotics. Catheter- associated UTI, continue to treat for sepsis, elevated white count, multiple antibiotics. Positive blood culture, possible contamination. Continue with vancomycin. Repeat blood cultures. IV Ancef also will be given per Infectious Disease. PROGNOSIS: Guarded. Continue with current treatments otherwise. MMODL / IJN: [id number] /
[2023-10-19 21:07] LABS: Glucose,Whole Blood 83 mg/dL (70-110)
[2023-10-20 05:56] LABS: Glucose,Whole Blood 109 mg/dL (70-110)
[2023-10-20] MEDS: BACLOFEN 10 MG TAB PEG/G-TUBE SCH ×3 (06:44→20:45)
[2023-10-20] MEDS: oxyBUTYnin chloride 5 MG TAB PEG/G-TUBE SCH ×3 (06:44→20:44)
[2023-10-20] MEDS: IPRATROPIUM-ALBUTEROL 3 ML NEB INHALATION SCH ×4 (07:44→21:50)
[2023-10-20] MEDS: bisacodyL 10 MG SUPP RECTAL SCH (08:51)
[2023-10-20] MEDS: ASPIRIN 81 MG PEG/G-TUBE SCH (08:51)
[2023-10-20] MEDS: METOPROLOL TARTRATE 50 MG TAB PEG/G-TUBE SCH ×2 (08:51→20:44)
[2023-10-20] MEDS: FAMOTIDINE 20 MG TAB PEG/G-TUBE SCH (08:51)
[2023-10-20] MEDS: LACOSAMIDE 150 MG TABLET PEG/G-TUBE SCH ×2 (08:51→20:44)
[2023-10-20] MEDS: LACTULOSE 20 GM/30 ML CUP PEG/G-TUBE SCH ×3 (08:51→20:45)
[2023-10-20] MEDS: TOBRA-DEXAMET 0.3-0.1% OPHTH DROPS 2.5 ML BTL RIGHT EYE SCH ×3 (08:52→20:45)
[2023-10-20] MEDS: ERTAPENEM 1 GM in SODIUM CHLORIDE 0.9% 50 ML IVPB SCH (09:01)
[2023-10-20 11:55] LABS: Glucose,Whole Blood 120 mg/dL (70-110)
[2023-10-20 12:37] LABS: BUN/Creat Ratio 19.22 Ratio (12.00-20.00); Blood Urea Nitrogen 17.3 mg/dL (9.0-27.0); Carbon Dioxide 22.5 mmol/L (21.6-31.8); Chloride 111 mmol/L (96-109); Glucose 127 mg/dL (70-110); Sodium 145 mmol/L (135-145)
[2023-10-20 13:02] LABS: Basophils # (A) 0.05 X 10*3/uL (0.00-0.10); Basophils % (A) 0.8 %; Eosinophils # (A) 0.64 X 10*3/uL (0.04-0.35); Eosinophils % (A) 9.8 %; HCT 45.6 % (39.6-50.0); HGB 13.5 g/dL (13.0-17.0); Lymphocytes # (A) 1.04 X 10*3/uL (0.90-5.00); Lymphocytes % (A) 15.9 %; MCH 24.5 pg (27.0-32.0); MCHC 29.6 g/dL (32.0-37.0); MCV 82.8 FL (80.0-97.0); Mean Platelet Volume 12.2 FL (9.5-12.2); Monocytes % (A) 10.7 %; NRBC Per 100 WBC 0 X 10*3/uL (0.00-0.01); Neutrophils # (A) 4.09 X 10*3/uL (1.80-7.70); Neutrophils % (A) 62.5 %; Platelet Count 264 X 10*3/uL (140-440); RBC 5.51 X 10*6/uL (4.40-5.60); RDW 18.3 % (11.5-14.5); WBC 6.54 X 10*3/uL (4.50-10.00)
[2023-10-20 16:51] LABS: Glucose,Whole Blood 109 mg/dL (70-110)
[2023-10-20 20:37] LABS: Glucose,Whole Blood 112 mg/dL (70-110)
[2023-10-20] MEDS: ATORVASTATIN 40 MG TAB PEG/G-TUBE SCH (20:44)
[2023-10-20] MEDS: polyethylene glycoL 3350 17 GM POWD.PACK PO SCH (20:45)
[2023-10-20] MEDS: SCOPOLAMINE 1 MG/72 HR PATCH TRANSDERM SCH (23:28)
--- NOTE | 2023-10-20 23:30 | P.PN ---
Progress Note - Text Progress Note Date: 10/20/23 Hospital course: I'm rounding for Dr. Ousmane Bundy. 10/20/2023: Laying in bed. Getting 2 feeding. Chronic Stein catheter. Both extremity has supportive boots. Not really speaking. Active Medications Acetaminophen (Acetaminophen Tab 325 Mg Tab) 650 mg PEG/G-TUBE Q4H PRN PRN Reason: Fever and/ or Pain Last Admin: 10/19/23 06:54 Dose: 650 mg Albuterol/Ipratropium (Ipratropium-Albuterol 3 Ml Neb) 3 ml INHALATION RT-QID [facility] Last Admin: 10/20/23 21:50 Dose: 3 ml Amantadine HCl (Amantadine Hcl 100 Mg/10 Ml Cup) 100 mg PEG/G-TUBE DAILY@0900 [facility] Last Admin: 10/20/23 08:51 Dose: 100 mg Aspirin (Aspirin 81 Mg) 81 mg PEG/G-TUBE DAILY@0900 [facility] Last Admin: 10/20/23 08:51 Dose: 81 mg Atorvastatin Calcium (Atorvastatin 40 Mg Tab) 40 mg PEG/G-TUBE HS [facility] Last Admin: 10/20/23 20:44 Dose: 40 mg Baclofen (Baclofen 10 Mg Tab) 5 mg PEG/G-TUBE TID@0600,1400,2200 [facility] Last Admin: 10/20/23 20:45 Dose: 5 mg Bisacodyl (Bisacodyl 10 Mg Supp) 10 mg RECTAL DAILY [facility] Last Admin: 10/20/23 08:51 Dose: 10 mg Carbamazepine (Carbamazepine Chew 100 Mg Chew) 100 mg PEG/G-TUBE TID@0600,1400,2200 [facility] Last Admin: 10/20/23 20:44 Dose: 100 mg Famotidine (Famotidine 20 Mg Tab) 20 mg PEG/G-TUBE DAILY [facility] Last Admin: 10/20/23 08:51 Dose: 20 mg Ertapenem 1 gm/ Sodium (Chloride) 50 mls @ 100 mls/hr IVPB DAILY [facility]; Protocol Last Admin: 10/20/23 09:01 Dose: 100 mls/hr Lacosamide (Lacosamide 150 Mg Tablet) 150 mg PEG/G-TUBE BID@0900,2000 [facility] Last Admin: 10/20/23 20:44 Dose: 150 mg Lactulose (Lactulose 20 Gm/30 Ml Cup) 20 gm PEG/G-TUBE TID@0900,1700,2100 [facility] Last Admin: 10/20/23 20:45 Dose: 20 gm Metoprolol Tartrate (Metoprolol Tartrate 50 Mg Tab) 50 mg PEG/G-TUBE BID@0900,2100 [facility] Last Admin: 10/20/23 20:44 Dose: 50 mg Naloxone HCl (Naloxone 0.4 Mg/Ml 1 Ml Vial) 0.2 mg IV Q2M PRN PRN Reason: Opioid Reversal Oxybutynin Chloride (Oxybutynin Chloride 5 Mg Tab) 5 mg PEG/G-TUBE TID@0600,1400,2200 [facility] Last Admin: 10/20/23 20:44 Dose: 5 mg Polyethylene Glycol (Polyethylene Glycol 3350 17 Gm Powd.Pack) 17 gm PO HS [facility] Last Admin: 10/20/23 20:45 Dose: 17 gm Scopolamine (Scopolamine 1 Mg/72 Hr Patch) 2 patch TRANSDERM Q72H [facility] Last Admin: 10/18/23 00:16 Dose: 2 patch Tobramycin/Dexamethasone (Tobra-Dexamet 0.3-0.1% Ophth Drops 2.5 Ml Btl) 1 drops RIGHT EYE TID [facility] Last Admin: 10/20/23 20:45 Dose: 1 drops On examination: VITAL SIGNS: [98.2, 77, 20, 136/76, 91% room air] GENERAL APPEARANCE: Laying in bed. Eyes open. Does not really communicate. HEENT: Normal external appearance of nose and ear. Oral cavity normal EYES: Pupils equal. Conjunctiva normal. NECK: JVD not raised. Mass not palpable. RESPIRATORY: Respiratory effort normal. Lungs diminished breath sounds. CARDIOVASCULAR: First and second sounds normal. No edema. ABDOMEN: Soft. Liver and spleen not palpable. No tenderness. No mass palpable. PEG tube. Stein catheter PSYCHIATRY: Patient doesn't answer questions Investigations: October 20: White count 6.5 with 30.5 potassium 4 creatinine 0.9 CRP 2.8 Assessment plan: -Positive blood cultures. With staph epi. Possible contaminant Repeat blood cultures per ID. IV vancomycin discontinued -Stein catheter causing acute UTI with cystitis Stein catheter changed. IV ertapenem. -Chronic PEG tube feeding Tolerating feeding -Chronic multiple sclerosis Baclofen -Hyperlipidemia Lipitor -Essential hypertension -Epilepsy Vimpat. Carbamazepine. -Chronic dysarthria, neurogenic bladder -Disposition: Resident of [facility] -Full code
--- NOTE | 2023-10-21 03:01 | P.PN ---
Subjective Progress Note Date: 10/20/23 Principal diagnosis: Reason for follow-up is catheter associated UTI and positive blood culture This is a telehealth visit hide Patient is a 63-year-old male with a past medical his significant for MS and this patient who did have a bedbound state and has multiple catheter associated tract infection as well as pneumonia's patient has been brought into the hospital with concern for sepsis, patient did have significantly positive UA elevated white count concerning for catheter associated UTI blood culture subsequently came back positive with staph epi. On today's evaluation that is 10/20/2023 patient remains to be afebrile, the patient is breathing comfortably on room air patient seem to be comfortable in no distress no vomiting diarrhea or urinary changes reported by the nursing staff. Patient white count of 6.54 creatinine 0.9, blood culture with staph epi 1 bottle Objective - Vital Signs Vital signs: Vital Signs Temp 98.2 F 10/20/23 14:04 Pulse 80 10/20/23 15:42 Resp 20 10/20/23 14:04 BP 136/76 10/20/23 14:04 Pulse Ox 91 L 10/20/23 14:04 FiO2 Intake & Output 10/19/23 10/20/23 10/20/23 18:59 06:59 18:59 Intake Total 450 Output Total 300 400 Balance -300 50 Weight 84 kg Intake: Oral 450 Output: Urine 300 400 Other: Voiding Method Indwelling Catheter Indwelling Catheter Indwelling Catheter # Bowel Movements 1 - Exam GENERAL DESCRIPTION: Middle-age male lying in bed in no distress RESPIRATORY SYSTEM: Unlabored breathing , decreased breath sounds at bases HEART: S1 S2 regular rate and rhythm , ABDOMEN: Soft , no tenderness EXTREMITIES: No edema feet - Labs CBC & Chem 7: 10/20/23 06:41 10/20/23 06:41 Labs: Abnormal Lab Results - Last 24 Hours (Table) 10/20/23 10/20/23 10/20/23 Range/Units 06:41 06:41 11:54 MCH 24.5 L (27.0-32.0) pg MCHC 29.6 L (32.0-37.0) g/dL RDW 18.3 H (11.5-14.5) % Eosinophils # 0.64 H (0.04-0.35) X 10*3/uL Chloride 111 H (96-109) mmol/L Glucose 127 H (70-110) mg/dL POC Glucose (mg/dL) 120 H (70-110) mg/dL C-Reactive Protein 2.80 H (0.00-0.80) mg/dL Microbiology - Last 24 Hours (Table) 10/17/23 19:40 Blood Culture Gram Stain - Final Blood Blood Culture - Final Coagulase Negative Staph 10/17/23 19:45 Blood Culture - Preliminary Blood Assessment and Plan (1) Positive blood culture Current Visit: Yes Status: Acute Code(s): R78.81 - BACTEREMIA SNOMED Code(s): 153183102 (2) Allergy to multiple antibiotics Current Visit: Yes Status: Acute Code(s): Z88.1 - ALLERGY STATUS TO OTHER ANTIBIOTIC AGENTS SNOMED Code(s): 079121288 (3) Catheter-associated urinary tract infection Current Visit: Yes Status: Acute Code(s): T83.511A - I/I REACT D/T INDWELLING URETHRAL CATHETER, INIT; N39.0 - URINARY TRACT INFECTION, SITE NOT SPECIFIED SNOMED Code(s): 157838136 Plan: 1patient presented to hospital with sepsis in this patient who did have fever elevated white count source is likely catheter associated tract infection in this patient who has been infected with drug-resistant pathogen we will need to cover for resistant gram-negative, clinically doubt pneumonia patient is breathing comfortably without need for supplemental oxygen 2-patient with multiple antibiotic ALLERGIES that would limit the number of antibiotic safe to use 3-patient Stein catheter has been changed repeat UA and initial cultures currently pending 4-patient did have a positive blood culture with staph epi likely skin contamination no need for vancomycin blood cultures has been repeated and results are currently pending 5patient did have resolution of his fever, will continue with the Invanz while waiting for the culture to finalize Dictation was produced using [employer] dictation software. please excuse any grammatical, word or spelling errors. Time with Patient: Less than 30
[2023-10-21] MEDS: BACLOFEN 10 MG TAB PEG/G-TUBE SCH ×3 (05:40→21:38)
[2023-10-21] MEDS: oxyBUTYnin chloride 5 MG TAB PEG/G-TUBE SCH ×3 (05:40→21:38)
[2023-10-21 05:41] LABS: Glucose,Whole Blood 125 mg/dL (70-110)
[2023-10-21] MEDS: IPRATROPIUM-ALBUTEROL 3 ML NEB INHALATION SCH ×4 (08:02→22:04)
[2023-10-21] MEDS: FAMOTIDINE 20 MG TAB PEG/G-TUBE SCH (08:08)
[2023-10-21] MEDS: LACOSAMIDE 150 MG TABLET PEG/G-TUBE SCH ×2 (08:08→21:38)
[2023-10-21] MEDS: METOPROLOL TARTRATE 50 MG TAB PEG/G-TUBE SCH ×2 (08:08→21:38)
[2023-10-21] MEDS: bisacodyL 10 MG SUPP RECTAL SCH (08:08)
[2023-10-21] MEDS: ASPIRIN 81 MG PEG/G-TUBE SCH (08:08)
[2023-10-21] MEDS: TOBRA-DEXAMET 0.3-0.1% OPHTH DROPS 2.5 ML BTL RIGHT EYE SCH ×3 (08:09→21:39)
[2023-10-21] MEDS: LACTULOSE 20 GM/30 ML CUP PEG/G-TUBE SCH ×3 (08:09→21:38)
[2023-10-21] MEDS: ERTAPENEM 1 GM in SODIUM CHLORIDE 0.9% 50 ML IVPB SCH (10:20)
[2023-10-21 11:54] LABS: Glucose,Whole Blood 101 mg/dL (70-110)
[2023-10-21 17:12] LABS: Glucose,Whole Blood 105 mg/dL (70-110)
[2023-10-21 20:26] LABS: Glucose,Whole Blood 104 mg/dL (70-110)
--- NOTE | 2023-10-21 21:29 | P.PN ---
Progress Note - Text Progress Note Date: 10/21/23 Hospital course: I'm rounding for Dr. Ousmane Bundy. 10/20/2023: Laying in bed. Getting 2 feeding. Chronic Stein catheter. Both extremity has supportive boots. Not really speaking. 10/21/2023: Tolerating tube feeding. No change in clinical status. Eyes open. Does not communicate Active Medications Acetaminophen (Acetaminophen Tab 325 Mg Tab) 650 mg PEG/G-TUBE Q4H PRN PRN Reason: Fever and/ or Pain Last Admin: 10/19/23 06:54 Dose: 650 mg Albuterol/Ipratropium (Ipratropium-Albuterol 3 Ml Neb) 3 ml INHALATION RT-QID [facility] Last Admin: 10/21/23 15:21 Dose: 3 ml Amantadine HCl (Amantadine Hcl 100 Mg/10 Ml Cup) 100 mg PEG/G-TUBE DAILY@0900 [facility] Last Admin: 10/21/23 08:09 Dose: 100 mg Aspirin (Aspirin 81 Mg) 81 mg PEG/G-TUBE DAILY@0900 [facility] Last Admin: 10/21/23 08:08 Dose: 81 mg Atorvastatin Calcium (Atorvastatin 40 Mg Tab) 40 mg PEG/G-TUBE HS [facility] Last Admin: 10/20/23 20:44 Dose: 40 mg Baclofen (Baclofen 10 Mg Tab) 5 mg PEG/G-TUBE TID@0600,1400,2200 [facility] Last Admin: 10/21/23 13:03 Dose: 5 mg Bisacodyl (Bisacodyl 10 Mg Supp) 10 mg RECTAL DAILY [facility] Last Admin: 10/21/23 08:08 Dose: 10 mg Carbamazepine (Carbamazepine Chew 100 Mg Chew) 100 mg PEG/G-TUBE TID@0600,1400,2200 [facility] Last Admin: 10/21/23 13:03 Dose: 100 mg Famotidine (Famotidine 20 Mg Tab) 20 mg PEG/G-TUBE DAILY [facility] Last Admin: 10/21/23 08:08 Dose: 20 mg Ertapenem 1 gm/ Sodium (Chloride) 50 mls @ 100 mls/hr IVPB DAILY [facility]; Protocol Last Admin: 10/21/23 10:20 Dose: 100 mls/hr Lacosamide (Lacosamide 150 Mg Tablet) 150 mg PEG/G-TUBE BID@0900,2000 [facility] Last Admin: 10/21/23 08:08 Dose: 150 mg Lactulose (Lactulose 20 Gm/30 Ml Cup) 20 gm PEG/G-TUBE TID@0900,1700,2100 [facility] Last Admin: 10/21/23 17:56 Dose: 20 gm Metoprolol Tartrate (Metoprolol Tartrate 50 Mg Tab) 50 mg PEG/G-TUBE BID@0900,2100 [facility] Last Admin: 10/21/23 08:08 Dose: 50 mg Naloxone HCl (Naloxone 0.4 Mg/Ml 1 Ml Vial) 0.2 mg IV Q2M PRN PRN Reason: Opioid Reversal Oxybutynin Chloride (Oxybutynin Chloride 5 Mg Tab) 5 mg PEG/G-TUBE TID@0600,1400,2200 [facility] Last Admin: 10/21/23 13:03 Dose: 5 mg Polyethylene Glycol (Polyethylene Glycol 3350 17 Gm Powd.Pack) 17 gm PO HS [facility] Last Admin: 10/20/23 20:45 Dose: 17 gm Scopolamine (Scopolamine 1 Mg/72 Hr Patch) 2 patch TRANSDERM Q72H [facility] Last Admin: 10/20/23 23:28 Dose: 2 patch Tobramycin/Dexamethasone (Tobra-Dexamet 0.3-0.1% Ophth Drops 2.5 Ml Btl) 1 drops RIGHT EYE TID [facility] Last Admin: 10/21/23 15:33 Dose: 1 drops On examination: VITAL SIGNS: 98.5, 86, 19, 126/76, 96% room air GENERAL APPEARANCE: Laying in bed. Eyes open. Does not speak. Doesn't really follow commands HEENT: Normal external appearance of nose and ear. Oral cavity normal EYES: Pupils equal. Conjunctiva normal. NECK: JVD not raised. Mass not palpable. RESPIRATORY: Respiratory effort normal. Lungs diminished breath sounds. CARDIOVASCULAR: First and second sounds normal. No edema. ABDOMEN: Soft. Liver and spleen not palpable. No tenderness. No mass palpable. PEG tube. Stein catheter PSYCHIATRY: Patient does not speak Investigations: October 20: White count 6.5 with 30.5 potassium 4 creatinine 0.9 CRP 2.8 Assessment plan: -Positive blood cultures. With glaze-negative Staphylococcus. Likely contaminant Repeat blood cultures per ID. IV vancomycin discontinued -Stein catheter causing acute UTI with cystitis, Enterococcus faecalis Stein catheter changed. IV ertapenem. -Chronic PEG tube feeding Tolerating feeding -Chronic multiple sclerosis Baclofen -Hyperlipidemia Lipitor -Essential hypertension -Epilepsy Vimpat. Carbamazepine. -Chronic dysarthria, neurogenic bladder -Disposition: Resident of [facility] Ja -Full code
[2023-10-21] MEDS: polyethylene glycoL 3350 17 GM POWD.PACK PO SCH (21:38)
[2023-10-21] MEDS: ATORVASTATIN 40 MG TAB PEG/G-TUBE SCH (21:38)
--- NOTE | 2023-10-21 22:39 | P.PN ---
Subjective Progress Note Date: 10/21/23 Principal diagnosis: Reason for follow-up is catheter associated UTI and positive blood culture This is a telehealth visit hide Patient is a 63-year-old male with a past medical his significant for MS and this patient who did have a bedbound state and has multiple catheter associated tract infection as well as pneumonia's patient has been brought into the hospital with concern for sepsis, patient did have significantly positive UA elevated white count concerning for catheter associated UTI blood culture subsequently came back positive with staph epi. On today's evaluation that is 10/21/2023 patient continues to be afebrile, the patient is breathing comfortably on room air and no respiratory distress has been reported, patient seem to be comfortable in no distress no vomiting diarrhea or urinary changes reported by the nursing staff. Patient did have white count of 6.54 as of yesterday no CBC was done today urine is growing Enterococcus faecalis sensitive to ampicillin repeat blood culture negative Objective - Vital Signs Vital signs: Vital Signs Temp 98.2 F 10/21/23 07:49 Pulse 84 10/21/23 08:22 Resp 21 10/21/23 07:49 BP 130/93 10/21/23 07:49 Pulse Ox 95 10/21/23 07:49 FiO2 Intake & Output 10/20/23 10/21/23 10/21/23 18:59 06:59 18:59 Output Total 401 Balance -401 Weight 86.5 kg Output: Urine 400 Stool 1 Other: Voiding Method Indwelling Catheter Indwelling Catheter # Bowel Movements 1 - Exam GENERAL DESCRIPTION: Middle-age male lying in bed in no distress RESPIRATORY SYSTEM: Unlabored breathing , decreased breath sounds at bases HEART: S1 S2 regular rate and rhythm , ABDOMEN: Soft , no tenderness EXTREMITIES: No edema feet - Labs CBC & Chem 7: 10/20/23 06:41 10/20/23 06:41 Labs: Abnormal Lab Results - Last 24 Hours (Table) 10/20/23 10/20/23 10/20/23 Range/Units 06:41 06:41 11:54 MCH 24.5 L (27.0-32.0) pg MCHC 29.6 L (32.0-37.0) g/dL RDW 18.3 H (11.5-14.5) % Eosinophils # 0.64 H (0.04-0.35) X 10*3/uL Chloride 111 H (96-109) mmol/L Glucose 127 H (70-110) mg/dL POC Glucose (mg/dL) 120 H (70-110) mg/dL C-Reactive Protein 2.80 H (0.00-0.80) mg/dL 10/20/23 10/21/23 Range/Units 20:36 05:39 MCH (27.0-32.0) pg MCHC (32.0-37.0) g/dL RDW (11.5-14.5) % Eosinophils # (0.04-0.35) X 10*3/uL Chloride (96-109) mmol/L Glucose (70-110) mg/dL POC Glucose (mg/dL) 112 H 125 H (70-110) mg/dL C-Reactive Protein (0.00-0.80) mg/dL Microbiology - Last 24 Hours (Table) 10/17/23 19:45 Blood Culture - Preliminary Blood 10/18/23 14:05 Urine Culture - Final Urine,Catheterized Enterococcus faecalis 10/17/23 19:40 Blood Culture Gram Stain - Final Blood Blood Culture - Final Coagulase Negative Staph Assessment and Plan (1) Positive blood culture Current Visit: Yes Status: Acute Code(s): R78.81 - BACTEREMIA SNOMED Code(s): 463127011 (2) Allergy to multiple antibiotics Current Visit: Yes Status: Acute Code(s): Z88.1 - ALLERGY STATUS TO OTHER ANTIBIOTIC AGENTS SNOMED Code(s): 086170741 (3) Catheter-associated urinary tract infection Current Visit: Yes Status: Acute Code(s): T83.511A - I/I REACT D/T INDWELLING URETHRAL CATHETER, INIT; N39.0 - URINARY TRACT INFECTION, SITE NOT SPECIFIED SNOMED Code(s): 348800620 Plan: 1patient presented to hospital with sepsis in this patient who did have fever elevated white count source is likely catheter associated tract infection in this patient who has been infected with drug-resistant pathogen we will need to cover for resistant gram-negative, clinically doubt pneumonia patient is breathing comfortably without need for supplemental oxygen 2-patient with multiple antibiotic ALLERGIES that would limit the number of antibiotic safe to use 3-patient Stein catheter has been changed repeat UA and initial cultures grew Enterococcus faecalis that is sensitive to ampicillin 4-patient did have a positive blood culture with staph epi likely skin contamination with repeat blood culture has been negative no need for vancomycin 5patient did have resolution of his fever, will discontinue ertapenem start the patient on Unasyn and finishing therapy with oral Augmentin Dictation was produced using [employer] dictation software. please excuse any grammatical, word or spelling errors. Time with Patient: Less than 30
[2023-10-22] MEDS: AMPICILLIN-SULBACTAM 3 GM in SODIUM CHLORIDE 0.9% 100 ML IVPB SCH ×5 (00:49→23:14)
[2023-10-22] MEDS: oxyBUTYnin chloride 5 MG TAB PEG/G-TUBE SCH ×3 (05:48→20:13)
[2023-10-22] MEDS: BACLOFEN 10 MG TAB PEG/G-TUBE SCH ×3 (05:48→20:13)
[2023-10-22 05:52] LABS: Glucose,Whole Blood 106 mg/dL (70-110)
[2023-10-22] MEDS: IPRATROPIUM-ALBUTEROL 3 ML NEB INHALATION SCH ×4 (07:33→21:37)
[2023-10-22] MEDS: METOPROLOL TARTRATE 50 MG TAB PEG/G-TUBE SCH ×2 (08:36→20:13)
[2023-10-22] MEDS: ASPIRIN 81 MG PEG/G-TUBE SCH (08:36)
[2023-10-22] MEDS: LACOSAMIDE 150 MG TABLET PEG/G-TUBE SCH ×2 (08:36→20:13)
[2023-10-22] MEDS: FAMOTIDINE 20 MG TAB PEG/G-TUBE SCH (08:36)
[2023-10-22] MEDS: bisacodyL 10 MG SUPP RECTAL SCH (08:37)
[2023-10-22] MEDS: LACTULOSE 20 GM/30 ML CUP PEG/G-TUBE SCH ×3 (08:37→20:06)
[2023-10-22] MEDS: TOBRA-DEXAMET 0.3-0.1% OPHTH DROPS 2.5 ML BTL RIGHT EYE SCH ×3 (08:37→20:12)
[2023-10-22 11:16] LABS: Glucose,Whole Blood 115 mg/dL (70-110)
[2023-10-22 16:44] LABS: Glucose,Whole Blood 116 mg/dL (70-110)
[2023-10-22] MEDS: polyethylene glycoL 3350 17 GM POWD.PACK PO SCH (20:06)
[2023-10-22] MEDS: ATORVASTATIN 40 MG TAB PEG/G-TUBE SCH (20:13)
[2023-10-22 20:25] LABS: Glucose,Whole Blood 109 mg/dL (70-110)
--- NOTE | 2023-10-22 22:38 | P.PN ---
Subjective Progress Note Date: 10/22/23 Principal diagnosis: Reason for follow-up is catheter associated UTI and positive blood culture This is a telehealth visit Patient is a 63-year-old male with a past medical his significant for MS and this patient who did have a bedbound state and has multiple catheter associated tract infection as well as pneumonia's patient has been brought into the hospital with concern for sepsis, patient did have significantly positive UA elevated white count concerning for catheter associated UTI blood culture subsequently came back positive with staph epi. On today's evaluation that is 10/22/2023 patient remains to be afebrile, the patient is breathing comfortably on room air patient seem to be comfortable in no distress no vomiting diarrhea or urinary changes reported by the nursing staff. Patient admitted for any history Patient last white count of 6.54 no CBC was done today urine is growing Enterococcus faecalis sensitive to ampicillin repeat blood culture negative Objective - Vital Signs Vital signs: Vital Signs Temp 98.9 F 10/22/23 06:57 Pulse 83 10/22/23 06:57 Resp 17 10/22/23 06:57 BP 142/83 10/22/23 06:57 Pulse Ox 94 L 10/22/23 06:57 FiO2 Intake & Output 10/21/23 10/22/23 10/22/23 18:59 06:59 18:59 Intake Total 1020 Output Total 500 Balance 520 Weight 87 kg Intake: Tube Feeding 720 Other 300 Output: Urine 500 Other 0 Other: Voiding Method Indwelling Catheter # Bowel Movements 1 1 - Labs CBC & Chem 7: 10/20/23 06:41 10/20/23 06:41 Labs: Microbiology - Last 24 Hours (Table) 10/20/23 06:41 Blood Culture - Preliminary Blood Assessment and Plan (1) Positive blood culture Current Visit: Yes Status: Acute Code(s): R78.81 - BACTEREMIA SNOMED Code(s): 584566211 (2) Allergy to multiple antibiotics Current Visit: Yes Status: Acute Code(s): Z88.1 - ALLERGY STATUS TO OTHER ANTIBIOTIC AGENTS SNOMED Code(s): 267697105 (3) Catheter-associated urinary tract infection Current Visit: Yes Status: Acute Code(s): T83.511A - I/I REACT D/T INDWEL LING URETHRAL CATHETER, INIT; N39.0 - URINARY TRACT INFECTION, SITE NOT SPECIFIED SNOMED Code(s): 792188023 Plan: 1patient presented to hospital with sepsis in this patient who did have fever elevated white count source is likely catheter associated tract infection in this patient who has been infected with drug-resistant pathogen we will need to cover for resistant gram-negative, clinically doubt pneumonia patient is breathing comfortably without need for supplemental oxygen 2-patient with multiple antibiotic ALLERGIES that would limit the number of antibiotic safe to use 3-patient Stein catheter has been changed repeat UA and initial cultures grew Enterococcus faecalis that is sensitive to ampicillin 4-patient did have a positive blood culture with staph epi likely skin contamination with repeat blood culture has been negative no need for vancomycin 5patient did have resolution of his fever, will continue the patient on Unasyn and finishing therapy with oral Augmentin Dictation was produced using [employer] dictation software. please excuse any grammatical, word or spelling errors. Time with Patient: Less than 30
--- NOTE | 2023-10-23 02:42 | PN ---
PROGRESS NOTE SUBJECTIVE: 63-year-old male, getting tube feeding. Chronic Stein catheter. Extremities in boots. Not really speaking. Tolerating tube feeding, Is and Os. Does not communicate much. OBJECTIVE: VITAL SIGNS: Temp 98.5, pulse 86, respiratory rate 18 to 20, blood pressure 122/75, O2 of 96%. HEENT: Normocephalic, atraumatic. Does not speak. Pupils equal, round, reactive. LUNGS: Normal. CARDIOVASCULAR: S1, S2. ABDOMEN: Soft, nontender. EXTREMITIES: No cyanosis, clubbing, or edema. ASSESSMENT: Positive blood cultures, gram-negative staphylococci, clinically contaminant. Repeat blood cultures per ID. IV vancomycin. Discontinued Stein catheter. Acute UTI with cystitis IV ertapenem, chronic PEG tube feedings. Multiple sclerosis, dyslipidemia, hypertension. Vimpat and carbamazepine for epilepsy. Chronic dysarthria, neurogenic bladder, . Prognosis guarded. Continue current treatment. MMODL / IJN: [id number] /
[2023-10-23] MEDS: AMPICILLIN-SULBACTAM 3 GM in SODIUM CHLORIDE 0.9% 100 ML IVPB SCH ×4 (05:47→23:26)
[2023-10-23] MEDS: BACLOFEN 10 MG TAB PEG/G-TUBE SCH ×3 (05:47→21:51)
[2023-10-23] MEDS: oxyBUTYnin chloride 5 MG TAB PEG/G-TUBE SCH ×3 (05:47→21:52)
[2023-10-23 05:58] LABS: Glucose,Whole Blood 112 mg/dL (70-110)
[2023-10-23] MEDS: LACOSAMIDE 150 MG TABLET PEG/G-TUBE SCH ×2 (09:16→21:52)
[2023-10-23] MEDS: METOPROLOL TARTRATE 50 MG TAB PEG/G-TUBE SCH ×2 (09:16→21:52)
[2023-10-23] MEDS: FAMOTIDINE 20 MG TAB PEG/G-TUBE SCH (09:16)
[2023-10-23] MEDS: bisacodyL 10 MG SUPP RECTAL SCH (09:17)
[2023-10-23] MEDS: TOBRA-DEXAMET 0.3-0.1% OPHTH DROPS 2.5 ML BTL RIGHT EYE SCH ×3 (09:18→21:52)
[2023-10-23] MEDS: IPRATROPIUM-ALBUTEROL 3 ML NEB INHALATION SCH ×4 (09:26→20:42)
[2023-10-23 11:13] LABS: Glucose,Whole Blood 120 mg/dL (70-110)
[2023-10-23] MEDS: LACTULOSE 20 GM/30 ML CUP PEG/G-TUBE SCH ×4 (12:18→23:26)
[2023-10-23 16:17] LABS: Glucose,Whole Blood 108 mg/dL (70-110)
[2023-10-23] MEDS: polyethylene glycoL 3350 17 GM POWD.PACK PO SCH (21:26)
--- NOTE | 2023-10-23 21:30 | CT ---
EXAMINATION TYPE: CT chest wo con CT DLP: 469.8 mGycm, Automated exposure control for dose reduction was used. DATE OF EXAM: 10/23/2023 9:22 PM COMPARISON: Chest radiograph from 10/17/2023, CLINICAL INDICATION:Male, 63 years old with history of hap; PHH, pneumonia TECHNIQUE: Multiple axial images were obtained through the chest. Sagittal and coronal reformats were created for review. Contrast used: mL of (None if empty) Oral contrast used: (None if empty) FINDINGS: LUNGS/ PLEURA: The lung parenchyma appears unremarkable. AIRWAY: Patent and unremarkable. HEART: Size within normal limits. Coronary artery atherosclerosis. MEDIASTINUM: No gross evidence of adenopathy. VASCULATURE: No aortic aneurysm. MUSCULOSKELETAL: No acute osseous abnormalities, remote left-sided rib fracture. Multilevel degenerat ion changes throughout the spine. SOFT TISSUES/LYMPH NODES: Unremarkable. LOWER NECK: No significant findings. UPPER ABDOMEN: No significant findings. IMPRESSION: Respiratory motion limits evaluation, No evidence from a airspace disease Follow up recommendations for incidental pulmonary nodules, if there are any, are per [employer] or [employer]. https://radiopaedia.org/articles/smjcjqnltn-[email or web address]?lang=us
[2023-10-23] MEDS: ATORVASTATIN 40 MG TAB PEG/G-TUBE SCH (21:52)
[2023-10-23 21:53] LABS: Glucose,Whole Blood 94 mg/dL (70-110)
[2023-10-23] MEDS: SCOPOLAMINE 1 MG/72 HR PATCH TRANSDERM SCH (23:27)
[2023-10-24] MEDS: AMPICILLIN-SULBACTAM 3 GM in SODIUM CHLORIDE 0.9% 100 ML IVPB SCH ×4 (05:29→23:33)
[2023-10-24] MEDS: oxyBUTYnin chloride 5 MG TAB PEG/G-TUBE SCH ×3 (05:30→22:05)
[2023-10-24] MEDS: BACLOFEN 10 MG TAB PEG/G-TUBE SCH ×3 (05:30→22:04)
[2023-10-24 06:01] LABS: Glucose,Whole Blood 124 mg/dL (70-110)
[2023-10-24] MEDS: LACTULOSE 20 GM/30 ML CUP PEG/G-TUBE SCH ×3 (08:35→22:04)
[2023-10-24] MEDS: LACOSAMIDE 150 MG TABLET PEG/G-TUBE SCH ×2 (08:35→22:04)
[2023-10-24] MEDS: ASPIRIN 81 MG PEG/G-TUBE SCH (08:35)
[2023-10-24] MEDS: bisacodyL 10 MG SUPP RECTAL SCH (08:35)
[2023-10-24] MEDS: FAMOTIDINE 20 MG TAB PEG/G-TUBE SCH (08:35)
[2023-10-24] MEDS: METOPROLOL TARTRATE 50 MG TAB PEG/G-TUBE SCH ×2 (08:35→22:05)
[2023-10-24] MEDS: TOBRA-DEXAMET 0.3-0.1% OPHTH DROPS 2.5 ML BTL RIGHT EYE SCH ×3 (08:36→22:05)
[2023-10-24] MEDS: IPRATROPIUM-ALBUTEROL 3 ML NEB INHALATION SCH ×5 (09:19→21:39)
[2023-10-24 11:02] LABS: Glucose,Whole Blood 114 mg/dL (70-110)
--- NOTE | 2023-10-24 12:22 | XR ---
EXAMINATION TYPE: XR chest 1V portable DATE OF EXAM: 10/24/2023 Comparison: 10/17/2023 Clinical History: 63-year-old male cough, hypoxia Findings: Low lung volumes, vascular markings. Heart mildly enlarged. Strandy atelectasis in the right lower jesus ng. No progressive consolidation or sizable pleural effusion. Impression: Ongoing prominent hypoventilatory changes. Aeration shows some improvement. Continued stringy areas o f lower lung atelectasis.
--- NOTE | 2023-10-24 14:37 | CDI ---
Documentation Clarification Form Date: 10/24/2023 02:11:55 PM From: Negin Salgado RN CCDS Phone: [phone] Admit Date: 10/17/2023 11:37:00 PM Patient Name: Chris Marvin Visit Number: [id number] Discharge Date: ATTENTION: The Clinical Documentation Specialists (CDI) and [facility] Coding Staff appreciate your assistance in clarifying documentation. Please respond to the clarification below the line at the bottom and electronically sign. The CDI & [facility] Coding staff will review the response and follow-up if needed. Please note: Queries are made part of the Legal Health Record. If you have any questions, please contact the author of this message via ITS. Dr. Ousmane Bundy Sepsis is documented Medicine note, 10/19, but is not noted in subsequent documentation. Clarification is requested. History/Risk Factors: 63 year old male presents to the ED via EMS from [facility] for concerns of sepsis. The patient does have recurrent UTIs and Pneumonia. Medical history: MS, Decubitus ulcer, sepsis and UTIs 10/17, H&P. Clinical Indicators: VSS, 10/17: B/P 124/67; HR 79; Temp 98.4 F Axillary; RR 24; SpO2 94%RA LABS, 10/17: Wbc 13.8 Neutrophils 10.21; Lactic acid 2.8; UA Protein 1+, Blood large, Nitrate positive, Leukocyte esterase large, RBC >182, Wbc 24, Bacteria few. Nursing urinary catheter assessment 10/18: patient had a urethral catheter discontinued on 10/[address] Moncada. ID note, 10/22: Patient presented to the hospital with sepsis in this patient who did have a fever white count source is likely catheter associated tract infection . Treatment: 10/17 Gentamicin 360mg IVPB x 1, 10/18 - 10/21 Ertapenem 1gm IVPB x 1; 10/22 Ampicillin 3gm IVPB Q6H; Please clarify if the Sepsis is: [ ] Sepsis confirmed, remains under treatment [ ] Sepsis confirmed, resolved [ ] Sepsis ruled out [ ] Other condition, please specify [ ] Unable to determine (Template Last Revised: November 2020) MTDD
[2023-10-24 15:59] LABS: Glucose,Whole Blood 105 mg/dL (70-110)
[2023-10-24] MEDS: ATORVASTATIN 40 MG TAB PEG/G-TUBE SCH (22:05)
[2023-10-24] MEDS: polyethylene glycoL 3350 17 GM POWD.PACK PO SCH (22:05)
--- NOTE | 2023-10-25 01:55 | PN ---
PROGRESS NOTE SUBJECTIVE: The patient remains on Unasyn, DuoNeb, , Lipitor, , Tegretol, Pepcid, Vimpat, Lopressor, Ditropan, scopolamine patch, sugars in the mid 100s. OBJECTIVE: CARDIOVASCULAR: S1, S2. HEMATOLOGY: Negative for Homans. PSYCH: Fair mood and affect. ASSESSMENT: Chest x-ray, hypoventilatory changes, area shows some improvement, atelectasis. Possibly trying some breathing treatment for the patient. Waiting for echo, PT, OT, possible antibiotics or IV antibiotics as an outpatient. Prognosis guarded. MMODL / IJN: [id number] /
--- NOTE | 2023-10-25 02:45 | PN ---
PROGRESS NOTE Sepsis confirmed, resolved. MMODL / IJN: [id number] /
--- NOTE | 2023-10-25 04:33 | P.PN ---
Subjective Progress Note Date: 10/23/23 Principal diagnosis: Reason for follow-up is catheter associated UTI and positive blood culture This is a telehealth visit Patient is a 63-year-old male with a past medical his significant for MS and this patient who did have a bedbound state and has multiple catheter associated tract infection as well as pneumonia's patient has been brought into the hospital with concern for sepsis, patient did have significantly positive UA elevated white count concerning for catheter associated UTI blood culture subsequently came back positive with staph epi. On today's evaluation that is 10/23/2023 patient continues to be afebrile, the patient is breathing comfortably on room air, in no distress, no vomiting diarrhea or urinary changes reported by the nursing staff. Patient unable to provide any history Patient last white count of 6.54 no CBC was done today, patient urine is growing Enterococcus faecalis sensitive to ampicillin repeat blood culture negative Objective - Vital Signs Vital signs: Vital Signs Temp 98.4 F 10/23/23 07:01 Pulse 88 10/23/23 09:36 Resp 19 10/23/23 07:01 BP 127/71 10/23/23 07:01 Pulse Ox 94 L 10/23/23 07:01 FiO2 Intake & Output 10/22/23 10/23/23 10/23/23 18:59 06:59 18:59 Output Total 351 600 Balance -351 -600 Weight 87 kg 87.3 kg Output: Urine 350 600 Stool 1 Other: Voiding Method Indwelling Catheter Indwelling Catheter # Bowel Movements 1 - Exam GENERAL DESCRIPTION: Middle-age male lying in bed in no distress RESPIRATORY SYSTEM: Unlabored breathing , decreased breath sounds at bases HEART: S1 S2 regular rate and rhythm , ABDOMEN: Soft , no tenderness EXTREMITIES: No edema feet - Labs CBC & Chem 7: 10/20/23 06:41 10/20/23 06:41 Labs: Abnormal Lab Results - Last 24 Hours (Table) 10/22/23 10/22/23 10/23/23 Range/Units 11:15 16:42 05:57 POC Glucose (mg/dL) 115 H 116 H 112 H (70-110) mg/dL Microbiology - Last 24 Hours (Table) 10/17/23 19:45 Blood Culture - Final Blood 10/20/23 06:41 Blood Culture - Preliminary Blood Assessment and Plan (1) Positive blood culture Current Visit: Yes Status: Acute Code(s): R78.81 - BACTEREMIA SNOMED Code(s): 827286900 (2) Allergy to multiple antibiotics Current Visit: Yes Status: Acute Code(s): Z88.1 - ALLERGY STATUS TO OTHER ANTIBIOTIC AGENTS SNOMED Code(s): 212953558 (3) Catheter-associated urinary tract infection Current Visit: Yes Status: Acute Code(s): T83.511A - I/I REACT D/T INDWELLING URETHRAL CATHETER, INIT; N39.0 - URINARY TRACT INFECTION, SITE NOT SPECIFIED SNOMED Code(s): 104766792 Plan: 1patient presented to hospital with sepsis in this patient who did have fever elevated white count source is likely catheter associated tract infection in t his patient who has been infected with drug-resistant pathogen we will need to cover for resistant gram-negative, clinically doubt pneumonia patient is breathing comfortably without need for supplemental oxygen 2-patient with multiple antibiotic ALLERGIES that would limit the number of antibiotic safe to use 3-patient Stein catheter has been changed repeat UA and initial cultures grew Enterococcus faecalis that is sensitive to ampicillin 4-patient did have a positive blood culture with staph epi likely skin contamination with repeat blood culture has been negative no need for vancomycin 5patient did have resolution of his fever, patient is currently covered with Unasyn however the patient will be able to finish therapy with oral Augmentin Dictation was produced using [employer] dictation software. please excuse any grammatical, word or spelling errors. Time with Patient: Less than 30
--- NOTE | 2023-10-25 04:35 | P.PN ---
Subjective Progress Note Date: 10/24/23 Principal diagnosis: Reason for follow-up is catheter associated UTI and positive blood culture This is a telehealth visit Patient is a 63-year-old male with a past medical his significant for MS and this patient who did have a bedbound state and has multiple catheter associated tract infection as well as pneumonia's patient has been brought into the hospital with concern for sepsis, patient did have significantly positive UA elevated white count concerning for catheter associated UTI blood culture subsequently came back positive with staph epi. On today's evaluation that is 10/24/2023 patient is afebrile, the patient is breathing comfortably on room air, however the patient was noted to have more congested breathing and cough, no vomiting diarrhea or urinary changes reported by the nursing staff. Patient unable to provide any history Patient last white count of 6.54 no CBC was done today, patient urine is growing Enterococcus faecalis sensitive to ampicillin repeat blood culture negative Objective - Vital Signs Vital signs: Vital Signs Temp 98.6 F 10/24/23 07:53 Pulse 80 10/24/23 09:27 Resp 19 10/24/23 07:53 BP 117/63 10/24/23 07:53 Pulse Ox 91 L 10/24/23 07:53 FiO2 Intake & Output 10/23/23 10/24/23 10/24/23 18:59 06:59 18:59 Output Total 450 850 Balance -450 -850 Weight 87.3 kg Output: Urine 450 850 Other: Voiding Method Indwelling Catheter Indwelling Catheter Indwelling Catheter # Bowel Movements 1 - Exam GENERAL DESCRIPTION: Middle-age male lying in bed in no distress RESPIRATORY SYSTEM: Unlabored breathing , coarse breath sounds reported Exam completed with the help of IT INTERN - Labs CBC & Chem 7: 10/20/23 06:41 10/20/23 06:41 Labs: Abnormal Lab Results - Last 24 Hours (Table) 10/23/23 10/24/23 Range/Units 11:12 06:00 POC Glucose (mg/dL) 120 H 124 H (70-110) mg/dL Microbiology - Last 24 Hours (Table) 10/20/23 06:41 Blood Culture - Preliminary Blood Assessment and Plan (1) Positive blood culture Current Visit: Yes Status: Acute Code(s): R78.81 - BACTEREMIA SNOMED Code(s): 160394667 (2) Allergy to multiple antibiotics Current Visit: Yes Status: Acute Code(s): Z88.1 - ALLERGY STATUS TO OTHER ANTIBIOTIC AGENTS SNOMED Code(s): 484905219 (3) Catheter-associated urinary tract infection Current Visit: Yes Status: Acute Code(s): T83.511A - I/I REACT D/T INDWELLING URETHRAL CATHETER, INIT; N39.0 - URINARY TRACT INFECTION, SITE NOT SPECIFIED SNOMED Code(s): 780582948 Plan: 1patient presented to hospital with sepsis in this patient who did have fever elevated white count source is likely catheter associated tract infection in this patient who has been infected with drug-resistant pathogen we will need to cover for resistant gram-negative, clinically doubt pneumonia patient is breathing comfortably without need for supplemental oxygen 2-patient with multiple antibiotic ALLERGIES that would limit the number of ant ibiotic safe to use 3-patient Stein catheter has been changed repeat UA and initial cultures grew En terococcus faecalis that is sensitive to ampicillin 4-patient did have a positive blood culture with staph epi likely skin contamination with repeat blood culture has been negative no need for vancomycin 5patient did have resolution of his fever, patient is currently covered with Unasyn however the patient will be able to finish therapy with oral Augmentin 6patient noticed to have a congested breathing he did have a CT did not show any pneumonia possible atelectasis will benefit from chest PT as the patient would not be able to use incentive spirometry and aspiration precautions Dictation was produced using [employer] dictation software. please excuse any grammatical, word or spelling errors. Time with Patient: Less than 30
[2023-10-25] MEDS: AMPICILLIN-SULBACTAM 3 GM in SODIUM CHLORIDE 0.9% 100 ML IVPB SCH ×4 (05:28→23:54)
[2023-10-25] MEDS: BACLOFEN 10 MG TAB PEG/G-TUBE SCH ×3 (05:28→22:06)
[2023-10-25] MEDS: oxyBUTYnin chloride 5 MG TAB PEG/G-TUBE SCH ×3 (05:28→22:07)
[2023-10-25 06:15] LABS: Glucose,Whole Blood 108 mg/dL (70-110)
[2023-10-25 07:59] LABS: Anisocytosis Slight; Basophils % (A) 1 %; Eosinophils # (A) 0.5 k/uL (0-0.7); Eosinophils % (A) 9 %; HGB 12.6 gm/dL (13.0-17.5); Hypochromasia Marked; Lymphocytes # (A) 0.9 k/uL (1.0-4.8); Lymphocytes % (A) 15 %; MCH 25.1 pg (25.0-35.0); MCHC 30.6 g/dL (31.0-37.0); MCV 81.9 fL (80.0-100.0); Mean Platelet Volume 9.2; Monocytes # (A) 0.5 k/uL (0-1.0); Monocytes % (A) 8 %; Neutrophils # (A) 3.9 k/uL (1.3-7.7); Neutrophils % (A) 63 %; Platelet Count 223 k/uL (150-450); WBC 6.2 k/uL (3.8-10.6)
[2023-10-25] MEDS: ASPIRIN 81 MG PEG/G-TUBE SCH (09:34)
[2023-10-25] MEDS: METOPROLOL TARTRATE 50 MG TAB PEG/G-TUBE SCH ×2 (09:34→22:06)
[2023-10-25] MEDS: LACOSAMIDE 150 MG TABLET PEG/G-TUBE SCH ×2 (09:34→22:05)
[2023-10-25] MEDS: FAMOTIDINE 20 MG TAB PEG/G-TUBE SCH (09:34)
[2023-10-25] MEDS: bisacodyL 10 MG SUPP RECTAL SCH (09:34)
[2023-10-25] MEDS: LACTULOSE 20 GM/30 ML CUP PEG/G-TUBE SCH ×3 (09:34→22:05)
[2023-10-25] MEDS: IPRATROPIUM-ALBUTEROL 3 ML NEB INHALATION SCH ×4 (09:36→20:40)
[2023-10-25] MEDS: TOBRA-DEXAMET 0.3-0.1% OPHTH DROPS 2.5 ML BTL RIGHT EYE SCH ×3 (09:36→22:07)
[2023-10-25 11:10] LABS: Glucose,Whole Blood 113 mg/dL (70-110)
[2023-10-25 11:39] LABS: ALT 19 U/L (10-49); AST 13 U/L (14-35); Albumin 3.3 g/dL (3.8-4.9); Albumin/Globulin Ratio 1.18 Ratio (1.60-3.17); Alkaline Phosphatase 98 U/L (41-126); BUN/Creat Ratio 22.12 Ratio (12.00-20.00); Blood Urea Nitrogen 17.7 mg/dL (9.0-27.0); Calcium 8.4 mg/dL (8.7-10.3); Carbon Dioxide 21.9 mmol/L (21.6-31.8); Chloride 110 mmol/L (96-109); Globulin 2.8 g/dL (1.6-3.3); Glucose 126 mg/dL (70-110); Sodium 143 mmol/L (135-145); Total Bilirubin <0.2 mg/dL (0.3-1.2); Total Protein 6.1 g/dL (6.2-8.2)
--- NOTE | 2023-10-25 12:19 | CA ---
Transthoracic Echo Report Name: Chris Marvin Age: 63 Gender: M : 1960 Exam Date: 10/25/2023 08:24 Exam Location: [facility] Ht (in): 69 Wt (lb): 192 Ordering Physician: Ousmane Bundy MD Attending/Referring Phys: Radio News Anchor Lillian Harvey [facility] Procedure CPT: Indications: HTN Cardiac Hx: Technical Quality: Technically difficult study Contrast 1: Total Dose (mL): Contrast 2: Total Dose (mL): MEASUREMENTS (Male / Female) Normal Values 2D ECHO LV Diastolic Diameter PLAX 3.9 cm 4.2 - 5.9 / 3.9 - 5.3 cm LV Systolic Diameter PLAX 3.1 cm IVS Diastolic Thickness 1.2 cm 0.6 - 1.0 / 0.6 - 0.9 cm LVPW Diastolic Thickness 1.2 cm 0.6 - 1.0 / 0.6 - 0.9 cm LV Relative Wall Thickness 0.6 LVOT Diameter 2.0 cm Ascending Aorta Diameter 3.6 cm M-MODE Aortic Root Diameter MM 3.2 cm LA Systolic Diameter MM 2.7 cm LA Ao Ratio MM 0.9 AV Cusp Separation MM 2.2 cm DOPPLER AV Peak Velocity 106.0 cm/s AV Peak Gradient 4.5 mmHg AV Mean Velocity 86.5 cm/s AV Mean Gradient 3.1 mmHg AV Velocity Time Integral 23.1 cm LVOT Peak Velocity 74.7 cm/s LVOT Peak Gradient 2.2 mmHg LVOT Velocity Time Integral 15.4 cm LVOT Stroke Volume 48.1 cm??? LVOT Stroke Volume Index 23.7 ml/m??? LVOT Cardiac Index 1899.7 cm???/min???m??? AV Area Cont Eq vti 2.1 cm??? AV Area Cont Eq pk 2.2 cm??? Mitral E Point Velocity 38.0 cm/s Mitral A Point Velocity 66.3 cm/s Mitral E to A Ratio 0.6 MV Deceleration Time 211.2 ms LV E' Lateral Velocity 8.2 cm/s Mitral E to LV E' Lateral Ratio 4.6 LV E' Septal Velocity 6.7 cm/s Mitral E to LV E' Septal Ratio 5.7 Right Atrial Pressure 8.0 mmHg FINDINGS Left Ventricle Left ventricle not well visualized. Left ventricular cavity size normal. Mildly increased left ventricular wall thickness. Left ventricular systolic function appears mildly reduced from images obtained. Left ventricular ejection fraction is estimated at 40-45%. Right Ventricle Right ventricle not well visualized. Right Atrium Normal right atrial size. Left Atrium Normal left atrial size. Mitral Valve Structurally normal mitral valve.Trace mitral regurgitation. Aortic Valve Aortic valve not well visualized. Aortic valve sclerosis. No aortic regurgitation. Tricuspid Valve Tricuspid valve not well visualized. Pulmonic Valve Pulmonic valve not well visualized. Pericardium No pericardial effusion. Echo free space anterior to the right ventricle likely represents a fat pad. Aorta Normal size aortic root and proximal ascending aorta. CONCLUSIONS Technically limited study, patient uncooperative, Definity was attempted however patient stopped exam. The ejection fraction is difficult to assess but is about 40-45 percent Previewed by: Dr. Daniel Ricci MD (Electronically Signed) Final Date: 25 October 2023 12:19
[2023-10-25 17:06] LABS: Glucose,Whole Blood 100 mg/dL (70-110)
[2023-10-25 20:26] LABS: Glucose,Whole Blood 101 mg/dL (70-110)
--- NOTE | 2023-10-25 21:12 | PN ---
PROGRESS NOTE SUBJECTIVE: Echogram on the patient showed ejection fraction 40% to 45% for CHF, cardiology consult on this patient for ejection fraction. OBJECTIVE: VITAL SIGNS: Blood pressure 120/80, O2 is 96, temperature 98.5, pulse 60 to 70, respiratory rate 18 to 22. CARDIOVASCULAR: S1, S2. LUNGS: Decreased breath sounds, scattered wheeze. HEMATOLOGY: Negative for Homans. PSYCH: Fair mood and affect. NEUROLOGIC: Alert and oriented x0. He has bad MS and altered mental status. He has a remote left-sided rib fracture, degenerative disc disease in his spine, coronary artery atherosclerosis with poor ejection fraction. Get Cardiology invested prior to going back to rehab center on oral antibiotics. His lungs have scattered wheeze, cardiovascular S1, S2, he has 2+ edema. ASSESSMENT: MS, acute on chronic systolic diastolic heart failure, new onset, as he has never been worked up before apparently. Prognosis is guarded, with drug-resistant UTIs as mentioned above. Prognosis guarded. MMODL / IJN: [id number] /
[2023-10-25] MEDS: ATORVASTATIN 40 MG TAB PEG/G-TUBE SCH (22:05)
[2023-10-25] MEDS: polyethylene glycoL 3350 17 GM POWD.PACK PO SCH (22:06)
[2023-10-25] MEDS: SCOPOLAMINE 1 MG/72 HR PATCH TRANSDERM SCH (22:58)
--- NOTE | 2023-10-26 01:44 | P.PN ---
Subjective Progress Note Date: 10/25/23 Principal diagnosis: Reason for follow-up is catheter associated UTI and positive blood culture This is a telehealth visit Patient is a 63-year-old male with a past medical his significant for MS and this patient who did have a bedbound state and has multiple catheter associated tract infection as well as pneumonia's patient has been brought into the hospital with concern for sepsis, patient did have significantly positive UA elevated white count concerning for catheter associated UTI blood culture subsequently came back positive with staph epi. On today's evaluation that is 10/25/2023 patient remains to be afebrile, the patient is breathing comfortably on room air, and does not seem to be any distress, no vomiting diarrhea or urinary changes reported by the nursing staff. Patient unable to provide any history Patient did have white count of 6.2, creatinine 0.8 CRP 0.40 Objective - Vital Signs Vital signs: Vital Signs Temp 98.0 F 10/25/23 19:36 Pulse 76 10/25/23 20:52 Resp 20 10/25/23 19:36 BP 153/101 10/25/23 19:36 Pulse Ox 91 L 10/25/23 19:36 FiO2 Intake & Output 10/25/23 10/25/23 10/26/23 06:59 18:59 06:59 Intake Total 200 Output Total 401 500 Balance -201 -500 Weight 90 kg Intake: Intake, IV Titration 200 Amount Ampicillin-Sulbactam 3 gm 200 In Sodium Chloride 0.9% 100 ml @ 200 mls/hr IVPB Q6HR [facility] Rx#:[id number] Output: Urine 400 500 Stool 1 Other: Voiding Method Indwelling Catheter Indwelling Catheter # Bowel Movements 1 - Exam GENERAL DESCRIPTION: Middle-age male lying in bed in no distress RESPIRATORY SYSTEM: Unlabored breathing , coarse breath sounds reported Exam completed with the help of TOUR LEADER - Labs CBC & Chem 7: 10/25/23 06:47 10/25/23 07:14 Labs: Abnormal Lab Results - Last 24 Hours (Table) 10/25/23 10/25/23 10/25/23 Range/Units 06:47 07:00 07:14 Hgb 12.6 L (13.0-17.5) gm/dL MCHC 30.6 L (31.0-37.0) g/dL RDW 17.0 H (11.5-15.5) % Lymphocytes # 0.9 L (1.0-4.8) k/uL Chloride 110 H (96-109) mmol/L BUN/Creatinine Ratio 22.12 H (12.00-20.00) Ratio Glucose 126 H (70-110) mg/dL POC Glucose (mg/dL) (70-110) mg/dL Calcium 8.4 L (8.7-10.3) mg/dL Total Bilirubin <0.2 L (0.3-1.2) mg/dL AST 13 L (14-35) U/L Total Protein 6.1 L (6.2-8.2) g/dL Albumin 3.3 L (3.8-4.9) g/dL Albumin/Globulin Ratio 1.18 L (1.60-3.17) Ratio Procalcitonin 0.11 H (0.02-0.09) ng/mL 10/25/23 Range/Units 11:09 Hgb (13.0-17.5) gm/dL MCHC (31.0-37.0) g/dL RDW (11.5-15.5) % Lymphocytes # (1.0-4.8) k/uL Chloride (96-109) mmol/L BUN/Creatinine Ratio (12.00-20.00) Ratio Glucose (70-110) mg/dL POC Glucose (mg/dL) 113 H (70-110) mg/dL Calcium (8.7-10.3) mg/dL Total Bilirubin (0.3-1.2) mg/dL AST (14-35) U/L Total Protein (6.2-8.2) g/dL Albumin (3.8-4.9) g/dL Albumin/Globulin Ratio (1.60-3.17) Ratio Procalcitonin (0.02-0.09) ng/mL Microbiology - Last 24 Hours (Table) 10/20/23 06:41 Blood Culture - Final Blood Assessment and Plan (1) Positive blood culture Current Visit: Yes Status: Acute Code(s): R78.81 - BACTEREMIA SNOMED Code(s): 390863870 (2) Allergy to multiple antibiotics Current Visit: Yes Status: Acute Code(s): Z88.1 - ALLERGY STATUS TO OTHER ANTIBIOTIC AGENTS SNOMED Code(s): 003518460 (3) Catheter-associated urinary tract infection Current Visit: Yes Status: Acute Code(s): T83.511A - I/I REACT D/T INDWELLING URETHRAL CATHETER, INIT; N39.0 - URINARY TRACT INFECTION, SITE NOT SPECIFIED SNOMED Code(s): 094259903 Plan: 1patient presented to hospital with sepsis in this patient who did have fever elevated white count source is likely catheter associated tract infection in this patient who has been infected with drug-resistant pathogen we will need to cover for resistant gram-negative, clinically doubt pneumonia patient is breathing comfortably without need for supplemental oxygen 2-patient with multiple antibiotic ALLERGIES that would limit the number of antibiotic safe to use 3-patient Stein catheter has been changed repeat UA and initial cultures grew Enterococcus faecalis that is sensitive to ampicillin 4-patient did have a positive blood culture with staph epi likely skin contamination with repeat blood culture has been negative no need for vancomycin 5patient noticed to have a congested breathing he did have a CT did not show any pneumonia possible atelectasis will benefit from chest PT as the patient would not be able to use incentive spirometry and aspiration precautions 6-patient did have resolution of his fever, patient is currently covered with Unasyn, plan is to finish therapy with oral Augmentin Dictation was produced using [employer] dictation software. please excuse any grammatical, word or spelling errors.
[2023-10-26] MEDS: oxyBUTYnin chloride 5 MG TAB PEG/G-TUBE SCH ×3 (05:42→20:11)
[2023-10-26] MEDS: AMPICILLIN-SULBACTAM 3 GM in SODIUM CHLORIDE 0.9% 100 ML IVPB SCH ×4 (05:42→23:34)
[2023-10-26] MEDS: BACLOFEN 10 MG TAB PEG/G-TUBE SCH ×3 (05:42→20:11)
[2023-10-26 06:13] LABS: Glucose,Whole Blood 99 mg/dL (70-110)
[2023-10-26] MEDS: IPRATROPIUM-ALBUTEROL 3 ML NEB INHALATION SCH ×4 (08:17→21:22)
[2023-10-26] MEDS: LACTULOSE 20 GM/30 ML CUP PEG/G-TUBE SCH ×3 (08:44→20:09)
[2023-10-26] MEDS: bisacodyL 10 MG SUPP RECTAL SCH (08:44)
[2023-10-26] MEDS: METOPROLOL TARTRATE 50 MG TAB PEG/G-TUBE SCH ×2 (08:44→20:11)
[2023-10-26] MEDS: ASPIRIN 81 MG PEG/G-TUBE SCH (08:44)
[2023-10-26] MEDS: LACOSAMIDE 150 MG TABLET PEG/G-TUBE SCH ×2 (08:44→20:11)
[2023-10-26] MEDS: FAMOTIDINE 20 MG TAB PEG/G-TUBE SCH (08:44)
[2023-10-26] MEDS: TOBRA-DEXAMET 0.3-0.1% OPHTH DROPS 2.5 ML BTL RIGHT EYE SCH ×3 (08:45→20:13)
--- NOTE | 2023-10-26 09:58 | P.CRDCN ---
History of Present Illness Consult date: 10/26/23 Reason for Consult (text): Poor EF History of present illness: History of present illness: This is a 63-year-old male with past medical history of DVT, hypertension, multiple sclerosis, seizure disorder, dementia, pneumonia, UTI, dysphagia with PEG tube, neurogenic bladder with chronic aggarwal catheter. Patient does not follow with a water quality technician. We have been asked to see the patient in consultation for poor EF. Patient has been hospitalized for the past 9 days for catheter associated urinary tract infection, gram-negative bacteremia. E chocardiogram was done which revealed EF 40 to 45%, technically limited study, patient uncooperative. Patient is unable to provide any information and is normally nonverbal. He appears to be in no acute distress. EKG sinus rhythm at 85 bpm Chest x-ray: No evidence of airspace disease WBC 6.2, hemoglobin 12.6. Creatinine 0.8, potassium 4.0. Home cardiac medications: Aspirin 81 mg daily, atorvastatin 40 mg daily, Lopressor 50 mg twice daily. Review Of Systems: At the time of my evaluation: Unable to obtain due to patient's mental status Physical examination: Gen: This is a 63-year-old male resting in bed. VS: reviewed blood pressure 122/77, heart rate in the 70s. HEENT: Head is atraumatic, normocephalic. Pupils equal, round. Sclerae is anicteric. LUNGS: Bilateral rhonchi. No intercostal retractions. HEART: Distant heart sounds. Regular rate and rhythm. No murmur. EXTREMITIES: Bilateral pedal edema. No calf tenderness Assessment: Cardiomyopathy with unclear etiology Urinary tract infection Gram-negative bacteremia Multiple sclerosis Seizure disorder Dysphagia with PEG tube Neurogenic bladder with chronic Aggarwal catheter History of pneumonia History of DVT History of hypertension Plan: Recommend medical treatment at this time, patient is not an interventional candidate, Continue Aspirin, Statin, Beta hali Add lisinopril 2.5 mg daily Cardiology will sign off this case and follow on an as-needed basis. Please reconsult for any new concerns. Nurse practitioner note has been reviewed, I agree with documented findings and plan of care. Patient was seen and examined. Past Medical History Past Medical History: Deep Vein Thrombosis (DVT), GERD/Reflux, Hypertension, Musculoskeletal Disorder, Neurologic Disorder, Pneumonia, Seizure Disorder, Skin Disorder Additional Past Medical History / Comment(s): Pt diagnosed with MS at the age of 39 yrs, seizure/pneumonia/UTI with sepsis/respirtory failure/vented, cognitive impairment, sister states when he is feeling well he could speak a few words/nod head appropriately/give thumbs up/roll eyes but when ill is nonverbal, pt has dysphagia/NPO with peg tube, contractures, last seizure 07/2020, trigeminal neuralgia, dysarthria/anarthria/neurogenic bladder with IDC-UTIs/sepsis, multiple pneumonias, recent seizure-last one 07/03/20, incontinent of stool, pt has had decubitus ulcer coccyx-sister unsure of skin condition at this time, past anemia r/t heparin/epistaxiis which involved nasal packing/transfusions, DVT bilateral arms, hypoxia, oxygen at 2L/NC, L femoral head fracture History of Any Multi-Drug Resistant Organisms: ESBL, MRSA, Other MDRO Date of last positivie culture/infection: 03/09/21-MRSA; 11/23/19 ESBL-E.coli MDRO Source:: Abdomen-Peg site MRSA; Urine -ESBL Past Surgical History: Tonsillectomy Additional Past Surgical History / Comment(s): Gastrostomy, peg tube, I&D coccyx decubitius, bronchoscopy, bilateral lasik eye surgery. Past Anesthesia/Blood Transfusion Reactions: No Reported Reaction Additional Past Anesthesia/Blood Transfusion Reaction / Comment(s): Pt has received blood in past without reaction. Past Psychological History: Depression Smoking Status: Never smoker Past Alcohol Use History: None Reported Past Drug Use History: None Reported - Past Family History Father Family Medical History: Myocardial Infarction (AL) Mother Family Medical History: Hypertension, Myocardial Infarction (AL) Additional Family Medical History / Comment(s): Mother of a AL at the age of 73 yrs. Medications and Allergies Home Medications Medication Instructions Recorded Confirmed Type Ipratropium-Albuterol Nebulize 3 ml INHALATION RT-Q4H 12/16/19 10/17/23 History [Duoneb 0.5 mg-3 mg/3 ml Soln] Aspirin 81 mg PEG/G-TUBE DAILY@0900 11/27/20 10/17/23 History Acetaminophen Tab [Tylenol] 650 mg PEG/G-TUBE Q4H PRN 06/13/21 10/17/23 History Metoprolol Tartrate [Lopressor] 50 mg PEG/G-TUBE BID@0900,2100 06/13/21 10/17/23 History carBAMazepine [carBAMazepine Oral 100 mg PEG/G-TUBE 07/02/21 10/17/23 History Susp] TID@0600,1400,2200 Amantadine Hcl Solution 50mg/5ml 100 mg PEG/G-TUBE DAILY@0900 12/22/21 10/17/23 History Lactulose 20 gm PEG/G-TUBE TID@0900,1700,2100 01/03/22 10/17/23 History Scopolamine [Scopolamine 1 MG/72 2 patch TRANSDERM Q72H 01/03/22 10/17/23 History HR patch] Baclofen [Lioresal] 5 mg PEG/G-TUBE TID@0600,1400,2200 05/03/22 10/17/23 Rx tab oxyBUTYnin chloride 5 mg PEG/G-TUBE TID@0600,1400,2200 12/19/22 10/17/23 History Atorvastatin [Lipitor] 40 mg PEG/G-TUBE HS 07/14/23 10/17/23 History Famotidine [Pepcid] 20 mg PEG/G-TUBE DAILY 07/14/23 10/17/23 History Lacosamide [Vimpat Oral Soln] 150 mg PO BID@0900,1999 #15 ml 09/26/23 10/17/23 Rx bisacodyL [Dulcolax] 10 mg RECTAL DAILY suppositor 09/26/23 10/17/23 Rx Tobra-Dexamet 0.3-0.1% Eye Lizzy 1 drop RIGHT EYE TID 10/17/23 10/17/23 History [Tobradex Ophth Susp] polyethylene glycoL 3350 [Miralax] 17 gm PO HS 10/17/23 10/17/23 History Allergies Allergy/AdvReac Type Severity Reaction Status Date / Time meropenem [From Merrem] Allergy Rash/Hives Verified 10/17/23 19:51 ceftolozane [From Zerbaxa] AdvReac Rapid Verified 10/17/23 19:51 Heart Rate tazobactam [From Zerbaxa] AdvReac Rapid Verified 10/17/23 19:51 Heart Rate Physical Exam Vitals: Vital Signs Temp Pulse Pulse Resp BP Pulse Ox 10/26/23 08:19 72 10/26/23 06:54 98.2 F 72 17 122/77 98 10/26/23 01:59 98.0 F 75 20 151/90 99 10/26/23 00:30 75 18 97 10/25/23 20:52 76 10/25/23 20:40 72 10/25/23 19:36 98.0 F 66 20 153/101 91 L 10/25/23 16:40 76 10/25/23 16:34 74 10/25/23 14:00 98.5 F 79 22 120/80 96 10/25/23 13:24 76 10/25/23 13:15 72 10/25/23 09:39 76 10/25/23 09:35 76 Intake and Output 10/25/23 10/26/23 10/26/23 22:59 06:59 14:59 Intake Total 450 Output Total 500 900 Balance -500 -450 Intake: Oral 450 Output: Urine 500 900 Other: # Bowel Movements 1 Weight 88.5 kg Results 10/25/23 06:47 10/25/23 07:14 Cardiac Enzymes 10/25/23 Range/Units 07:14 AST 13 L (14-35) U/L Comprehensive Metabolic Panel 10/25/23 Range/Units 07:14 Sodium 143 (135-145) mmol/L Potassium 4.0 (3.5-5.5) mmol/L Chloride 110 H (96-109) mmol/L Carbon Dioxide 21.9 (21.6-31.8) mmol/L BUN 17.7 (9.0-27.0) mg/dL Creatinine 0.8 (0.6-1.5) mg/dL Glucose 126 H (70-110) mg/dL Calcium 8.4 L (8.7-10.3) mg/dL AST 13 L (14-35) U/L ALT 19 (10-49) U/L Alkaline Phosphatase 98 (41-126) U/L Total Protein 6.1 L (6.2-8.2) g/dL Albumin 3.3 L (3.8-4.9) g/dL Current Medications Generic Name Dose Route Start Last Admin Trade Name Freq PRN Reason Stop Dose Admin Acetaminophen 650 mg 10/17/23 23:43 10/19/23 06:54 Acetaminophen Tab 325 Mg Tab PEG/G-TUBE 650 mg Q4H PRN Administration Fever and/ or Pain Albuterol/Ipratropium 3 ml 10/19/23 12:00 10/26/23 08:17 Ipratropium-Albuterol 3 Ml Neb INHALATION 3 ml RT-QID LUPE Administration Amantadine HCl 100 mg 10/18/23 09:00 10/25/23 09:36 Amantadine Hcl 100 Mg/10 Ml Cup PEG/G-TUBE 100 mg DAILY@0900 LUPE Administration Aspirin 81 mg 10/18/23 09:00 10/25/23 09:34 Aspirin 81 Mg PEG/G-TUBE 81 mg DAILY@0900 LUPE Administration Atorvastatin Calcium 40 mg 10/17/23 23:45 10/25/23 22:05 Atorvastatin 40 Mg Tab PEG/G-TUBE 40 mg HS LUPE Administration Baclofen 5 mg 10/18/23 06:00 10/26/23 05:42 Baclofen 10 Mg Tab PEG/G-TUBE 5 mg TID@0600,1400,2200 LUPE Administration Bisacodyl 10 mg 10/18/23 09:00 10/25/23 09:34 Bisacodyl 10 Mg Supp RECTAL 10 mg DAILY LUPE Administration Carbamazepine 100 mg 10/18/23 06:00 10/26/23 05:42 Carbamazepine Chew 100 Mg Chew PEG/G-TUBE 100 mg TID@0600,1400,2200 LUPE Administration Famotidine 20 mg 10/18/23 09:00 10/25/23 09:34 Famotidine 20 Mg Tab PEG/G-TUBE 20 mg DAILY LUPE Administration Ampicillin Sodium/Sulbactam 100 mls @ 200 mls/hr 10/22/23 00:00 10/26/23 05:42 Sodium 3 gm/ Sodium Chloride IVPB 200 mls/hr Q6HR LUPE Administration Protocol Lacosamide 150 mg 10/18/23 09:00 10/25/23 22:05 Lacosamide 150 Mg Tablet PEG/G-TUBE 150 mg BID@0900,2000 LUPE Administration Lactulose 20 gm 10/18/23 09:00 10/25/23 22:05 Lactulose 20 Gm/30 Ml Cup PEG/G-TUBE 20 gm TID@0900,1700,2100 LUPE Administration Metoprolol Tartrate 50 mg 10/18/23 09:00 10/25/23 22:06 Metoprolol Tartrate 50 Mg Tab PEG/G-TUBE 50 mg BID@0900,2100 LUPE Administration Naloxone HCl 0.2 mg 10/17/23 23:37 Naloxone 0.4 Mg/Ml 1 Ml Vial IV Q2M PRN Opioid Reversal Oxybutynin Chloride 5 mg 10/18/23 06:00 10/26/23 05:42 Oxybutynin Chloride 5 Mg Tab PEG/G-TUBE 5 mg TID@0600,1400,2200 LUPE Administration Polyethylene Glycol 17 gm 10/17/23 23:45 10/25/23 22:06 Polyethylene Glycol 3350 17 Gm Powd.Pack PO 17 gm HS LUPE Administration Scopolamine 2 patch 10/18/23 00:00 10/25/23 22:58 Scopolamine 1 Mg/72 Hr Patch TRANSDERM 2 patch Q72H LUPE Administration Tobramycin/Dexamethasone 1 drops 10/17/23 23:45 10/25/23 22:07 Tobra-Dexamet 0.3-0.1% Ophth Drops 2.5 Ml Btl RIGHT EYE 1 drops TID LUPE Administration Intake and Output 10/25/23 10/26/23 10/26/23 22:59 06:59 14:59 Intake Total 450 Output Total 500 900 Balance -500 -450 Intake: Oral 450 Output: Urine 500 900 Other: # Bowel Movements 1 Weight 88.5 kg 10/25/23 06:47 10/25/23 07:14
[2023-10-26 11:22] LABS: Glucose,Whole Blood 104 mg/dL (70-110)
[2023-10-26 12:14] VITALS: BMI 28.8
[2023-10-26 17:01] LABS: Glucose,Whole Blood 103 mg/dL (70-110)
[2023-10-26] MEDS: polyethylene glycoL 3350 17 GM POWD.PACK PO SCH (20:10)
[2023-10-26] MEDS: ATORVASTATIN 40 MG TAB PEG/G-TUBE SCH (20:11)
[2023-10-26 20:27] LABS: Glucose,Whole Blood 105 mg/dL (70-110)
--- NOTE | 2023-10-26 22:19 | P.PN ---
Subjective Progress Note Date: 10/26/23 Principal diagnosis: Reason for follow-up is catheter associated UTI and positive blood culture This is a telehealth visit Patient is a 63-year-old male with a past medical his significant for MS and this patient who did have a bedbound state and has multiple catheter associated tract infection as well as pneumonia's patient has been brought into the hospital with concern for sepsis, patient did have significantly positive UA elevated white count concerning for catheter associated UTI blood culture subsequently came back positive with staph epi. On today's evaluation that is 10/26/2023 patient is afebrile, the patient does not seem to be any distress and is breathing comfortably on room air, no vomiting diarrhea or urinary changes reported by the nursing staff. Patient unable to provide any history No new labs has been obtained today Objective - Vital Signs Vital signs: Vital Signs Temp 98.2 F 10/26/23 06:54 Pulse 72 10/26/23 08:19 Resp 17 10/26/23 06:54 BP 122/77 10/26/23 06:54 Pulse Ox 98 10/26/23 06:54 FiO2 Intake & Output 10/25/23 10/26/23 10/26/23 18:59 06:59 18:59 Intake Total 450 Output Total 500 900 Balance -500 -450 Weight 90 kg 88.5 kg Intake: Oral 450 Output: Urine 500 900 Other: Voiding Method Indwelling Catheter # Bowel Movements 1 - Exam GENERAL DESCRIPTION: Middle-age male lying in bed in no distress RESPIRATORY SYSTEM: Unlabored breathing , coarse breath sounds reported Exam completed with the help of HYDROGEN BRAZE FURNACE OPERATOR - Labs CBC & Chem 7: 10/25/23 06:47 10/25/23 07:14 Labs: Abnormal Lab Results - Last 24 Hours (Table) 10/25/23 10/25/23 10/25/23 Range/Units 07:00 07:14 11:09 Chloride 110 H (96-109) mmol/L BUN/Creatinine Ratio 22.12 H (12.00-20.00) Ratio Glucose 126 H (70-110) mg/dL POC Glucose (mg/dL) 113 H (70-110) mg/dL Calcium 8.4 L (8.7-10.3) mg/dL Total Bilirubin <0.2 L (0.3-1.2) mg/dL AST 13 L (14-35) U/L Total Protein 6.1 L (6.2-8.2) g/dL Albumin 3.3 L (3.8-4.9) g/dL Albumin/Globulin Ratio 1.18 L (1.60-3.17) Ratio Procalcitonin 0.11 H (0.02-0.09) ng/mL Microbiology - Last 24 Hours (Table) 10/20/23 06:41 Blood Culture - Final Blood Assessment and Plan (1) Positive blood culture Current Visit: Yes Status: Acute Code(s): R78.81 - BACTEREMIA SNOMED Code(s): 658302721 (2) Allergy to multiple antibiotics Current Visit: Yes Status: Acute Code(s): Z88.1 - ALLERGY STATUS TO OTHER ANTIBIOTIC AGENTS SNOMED Code(s): 085641949 (3) Catheter-associated urinary tract infection Current Visit: Yes Status: Acute Code(s): T83.511A - I/I REACT D/T INDWELLING URETHRAL CATHETER, INIT; N39.0 - URINARY TRACT INFECTION, SITE NOT SPECIFIED SNOMED Code(s): 931395671 Plan: 1patient presented to hospital with sepsis in this patient who did have fever elevated white count source is likely catheter associated tract infection in this patient who has been infected with drug-resistant pathogen we will need to cover for resistant gram-negative, clinically doubt pneumonia patient is breathing comfortably without need for supplemental oxygen 2-patient with multiple antibiotic ALLERGIES that would limit the number of antibiotic safe to use 3-patient Stein catheter has been changed repeat UA and initial cultures grew Enterococcus faecalis that is sensitive to ampicillin 4-patient did have a positive blood culture with staph epi likely skin contamination with repeat blood culture has been negative no need for vancomycin 5patient noticed to have a congested breathing he did have a CT did not show any pneumonia possible atelectasis will benefit from chest PT as the patient would not be able to use incentive spirometry and aspiration precautions 6-patient did have resolution of his fever, patient to continue with Unasyn, and monitor clinical course closely Dictation was produced using [employer] dictation software. please excuse any grammatical, word or spelling errors. Time with Patient: Less than 30
[2023-10-27] MEDS: AMPICILLIN-SULBACTAM 3 GM in SODIUM CHLORIDE 0.9% 100 ML IVPB SCH (00:35)
--- NOTE | 2023-10-27 04:04 | DS ---
DISCHARGE SUMMARY DISCHARGE MEDICINES: 1. DuoNeb q.i.d. 2. Zestril 2.5 daily. 3. Aspirin 81 mg daily PEG tube. 4. Tylenol 650 PEG tube every 4. 5. Tegretol 100 mg PEG tube t.i.d. 6. Amantadine 100 mg daily. 7. Scopolamine patch 1 mg 2 patches every 72 hours. 8. Lactulose 20 g PEG tube t.i.d. 9. Dulcolax 10 mg rectally. 10.MiraLAX 17 g daily. 11.Lopressor 50 PEG tube b.i.d. 12. 5 mg PEG tube t.i.d. 13.Oxybutynin 5 mg PEG tube t.i.d. 14.Lipitor 40 mg PEG tube daily. 15.Pepcid 20 mg PEG tube daily. 16.Rifampin 150 b.i.d. 17.TobraDex eyedrops t.i.d. CONDITION: Stable. PROGNOSIS: Guarded. ACTIVITY: Ambulate as tolerated. DISCHARGE DIAGNOSES: 1. Catheter-associated drug-resistant UTI, positive blood cultures. 2. Systemic inflammatory response syndrome. 3. Allergies to multiple antibiotics. 4. Cardiomyopathy. 5. Systolic diastolic heart failure for which he was started on lisinopril. 6. Blood culture, coagulase-negative Staph, possibly a contamination, not quite sure, but he was treated with antibiotics for this. Dr. Farah saw the patient. He had urine culture with Enterococcus faecalis. He was treated with oral antibiotics. IV antibiotics for multiple days and he could possibly go on antibiotic like penicillin or nitrofurantoin long-term to prevent recurrent infections if they so like, if they want to do that in the [place] [facility], which are the only oral antibiotics that will work for prophylaxis, so he is going to think about that at the [place] [facility]. Continue all his other medicines, continue as tolerated. Echo showed ejection fraction of 55%. Cardiology started lisinopril. Continue his breathing treatments 4 times a day q.i.d. as he had some pulmonary hypertension. Prognosis guarded, please see further orders. Diet was through PEG tube. PT OT, elevate head of bed. Aspiration precautions. Oxygen 2 L all the time. MMODL / IJN: [id number] /
[2023-10-27 06:00] LABS: Glucose,Whole Blood 110 mg/dL (70-110)
[2023-10-27] MEDS: BACLOFEN 10 MG TAB PEG/G-TUBE SCH ×2 (06:01→08:56)
[2023-10-27] MEDS: oxyBUTYnin chloride 5 MG TAB PEG/G-TUBE SCH (06:01)
[2023-10-27 07:42] VITALS: BP 141/70; RESP 22; TEMP 98.6
[2023-10-27] MEDS: IPRATROPIUM-ALBUTEROL 3 ML NEB INHALATION SCH (08:31)
[2023-10-27] MEDS: METOPROLOL TARTRATE 50 MG TAB PEG/G-TUBE SCH (08:57)
[2023-10-27] MEDS: ASPIRIN 81 MG PEG/G-TUBE SCH (08:57)
[2023-10-27] MEDS: LACTULOSE 20 GM/30 ML CUP PEG/G-TUBE SCH (08:57)
[2023-10-27] MEDS: bisacodyL 10 MG SUPP RECTAL SCH (08:57)
[2023-10-27] MEDS: LACOSAMIDE 150 MG TABLET PEG/G-TUBE SCH (08:57)
[2023-10-27] MEDS: FAMOTIDINE 20 MG TAB PEG/G-TUBE SCH (08:57)
[2023-10-27] MEDS: TOBRA-DEXAMET 0.3-0.1% OPHTH DROPS 2.5 ML BTL RIGHT EYE SCH (09:02)
[2023-10-27 09:54] VITALS: PULSE 84
--- NOTE | 2023-10-27 10:25 | DS ---
DISCHARGE SUMMARY ADDENDUM: We added Augmentin 875 b.i.d. for [address] Farah's recommendations. MMODL / IJN: [id number] /
[2023-10-27] MEDS ORDERED: AMOXIC-POT CLAV 875-125MG 1 EACH TAB PO SCH (11:00)
== END 2023-10-27 11:50 | DRG 698 ==
LOC: EC 18:05 → 4SSUR 23:37
PROVIDERS: ADMIT Family Medicine; ATTEND Family Medicine
PROC: 3E0G76Z Introduction of Nutritional Substance into Upper GI, Via Natural or Artificial Opening (ICD-10-PCS; principal; 2023-10-22)
DX: T83.511A Infection and inflammatory reaction due to indwelling urethral catheter, initial encounter (principal); A41.81 Sepsis due to Enterococcus; G93.41 Metabolic encephalopathy; R65.20 Severe sepsis without septic shock; I50.43 Acute on chronic combined systolic (congestive) and diastolic (congestive) heart failure; I42.9 Cardiomyopathy, unspecified; J98.11 Atelectasis; E78.5 Hyperlipidemia, unspecified; Z11.52 Encounter for screening for COVID-19; N31.9 Neuromuscular dysfunction of bladder, unspecified; G35 Multiple sclerosis; R13.10 Dysphagia, unspecified; Z93.1 Gastrostomy status; Z71.3 Dietary counseling and surveillance; F03.90 Unspecified dementia, unspecified severity, without behavioral disturbance, psychotic disturbance, mood disturbance, and anxiety; G40.909 Epilepsy, unspecified, not intractable, without status epilepticus; I11.0 Hypertensive heart disease with heart failure; I27.20 Pulmonary hypertension, unspecified; N30.90 Cystitis, unspecified without hematuria; Y84.6 Urinary catheterization as the cause of abnormal reaction of the patient, or of later complication, without mention of misadventure at the time of the procedure; Z74.01 Bed confinement status; Z79.82 Long term (current) use of aspirin; Z79.899 Other long term (current) drug therapy; Z82.49 Family history of ischemic heart disease and other diseases of the circulatory system; Z86.718 Personal history of other venous thrombosis and embolism; Z87.01 Personal history of pneumonia (recurrent); Z87.440 Personal history of urinary (tract) infections; Z88.1 Allergy status to other antibiotic agents
CPT/HCPCS: 36415; 51702; 71045; 71046; 71250; 74177; 80048; 80053; 80170; 81001; 83605; 83880; 84145; 85025; 85610; 85730; 86140; 87040; 87077; 87086; 87186; 87636; 93005; 93306; 94640; 96365; 96366; 96367; 99285

== ENCOUNTER 2023-11-03 02:01 | Emergency (ER) | payer MEDICARE, OTHER ==
--- NOTE | 2023-11-03 02:32 | ED ---
Altered Mental Status HPI - General Chief Complaint: Altered Mental Status Stated Complaint: AMS Time Seen by Provider: 11/03/23 02:06 Source: EMS Mode of arrival: EMS Limitations: altered mental status - History of Present Illness Initial Comments: This patient is 63-year-old man sent from long term to have evaluation for altered mental status. The patient here alert and denying complaints. MD Complaint: altered mental status -: hour(s) Consistency of Symptoms: waxing and waning Associated Symptoms: denies other symptoms - Related Data Home Medications Medication Instructions Recorded Confirmed Aspirin 81 mg PEG/G-TUBE DAILY@0900 11/27/20 10/17/23 Acetaminophen Tab [Tylenol] 650 mg PEG/G-TUBE Q4H PRN 06/13/21 10/17/23 Metoprolol Tartrate [Lopressor] 50 mg PEG/G-TUBE BID@0900,2100 06/13/21 10/17/23 carBAMazepine [carBAMazepine Oral 100 mg PEG/G-TUBE 07/02/21 10/17/23 Susp] TID@0600,1400,2200 Amantadine Hcl Solution 50mg/5ml 100 mg PEG/G-TUBE DAILY@0900 12/22/21 10/17/23 Lactulose 20 gm PEG/G-TUBE TID@0900,1700,2100 01/03/22 10/17/23 Scopolamine [Scopolamine 1 MG/72 2 patch TRANSDERM Q72H 01/03/22 10/17/23 HR patch] oxyBUTYnin chloride 5 mg PEG/G-TUBE TID@0600,1400,2200 12/19/22 10/17/23 Atorvastatin [Lipitor] 40 mg PEG/G-TUBE HS 07/14/23 10/17/23 Famotidine [Pepcid] 20 mg PEG/G-TUBE DAILY 07/14/23 10/17/23 Tobra-Dexamet 0.3-0.1% Eye Lizzy 1 drop RIGHT EYE TID 10/17/23 10/17/23 [Tobradex Ophth Susp] polyethylene glycoL 3350 [Miralax] 17 gm PO HS 10/17/23 10/17/23 Previous Rx's Medication Instructions Recorded Baclofen [Lioresal] 5 mg PEG/G-TUBE TID@0600,1400,2200 05/03/22 tab Lacosamide [Vimpat Oral Soln] 150 mg PO BID@0900,1999 #15 ml 09/26/23 bisacodyL [Dulcolax] 10 mg RECTAL DAILY suppositor 09/26/23 Ipratropium-Albuterol Nebulize 3 ml INHALATION RT-QID each 10/26/23 [Duoneb 0.5 mg-3 mg/3 ml Soln] lisinopriL [Zestril] 2.5 mg PO DAILY 90 Days #90 tab 10/26/23 Amoxic-Pot Clav 875-125Mg 1 each PO Q12HR 30 Days #60 tab 10/27/23 [Augmentin 875-125] nitrofurantoin macrocrystaL 100 mg PO BID #14 cap 11/03/23 Allergies Allergy/AdvReac Type Severity Reaction Status Date / Time meropenem [From Merrem] Allergy Rash/Hives Verified 11/11/23 19:14 ceftolozane [From Zerbaxa] AdvReac Rapid Verified 11/11/23 19:14 Heart Rate tazobactam [From Zerbaxa] AdvReac Rapid Verified 11/11/23 19:14 Heart Rate Review of Systems ROS Statement: Those systems with pertinent positive or pertinent negative responses have been documented in the HPI. ROS Other: All systems not noted in ROS Statement are negative. Constitutional: Denies: fever Respiratory: Denies: cough, dyspnea Cardiovascular: Denies: chest pain Gastrointestinal: Denies: abdominal pain, vomiting Musculoskeletal: Denies: back pain Neurological: Denies: headache Past Medical History Past Medical History: Deep Vein Thrombosis (DVT), GERD/Reflux, Hypertension, Musculoskeletal Disorder, Neurologic Disorder, Pneumonia, Seizure Disorder, Skin Disorder Additional Past Medical History / Comment(s): Pt diagnosed with MS at the age of 39 yrs, seizure/pneumonia/UTI with sepsis/respirtory failure/vented, cognitive impairment, sister states when he is feeling well he could speak a few words/nod head appropriately/give thumbs up/roll eyes but when ill is nonverbal, pt has dysphagia/NPO with peg tube, contractures, last seizure 07/2020, trigeminal neuralgia, dysarthria/anarthria/neurogenic bladder with IDC-UTIs/sepsis, multiple pneumonias, recent seizure-last one 07/03/20, incontinent of stool, pt has had decubitus ulcer coccyx-sister unsure of skin condition at this time, past anemia r/t heparin/epistaxiis which involved nasal packing/transfusions, DVT bilateral arms, hypoxia, oxygen at 2L/NC, L femoral head fracture History of Any Multi-Drug Resistant Organisms: ESBL, MRSA, Other MDRO Date of last positivie culture/infection: 03/09/21-MRSA; 11/23/19 ESBL-E.coli MDRO Source:: Abdomen-Peg site MRSA; Urine -ESBL Past Surgical History: Tonsillectomy Additional Past Surgical History / Comment(s): Gastrostomy, peg tube, I&D coccyx decubitius, bronchoscopy, bilateral lasik eye surgery. Past Anesthesia/Blood Transfusion Reactions: No Reported Reaction Additional Past Anesthesia/Blood Transfusion Reaction / Comment(s): Pt has r eceived blood in past without reaction. Past Psychological History: Depression Smoking Status: Never smoker Past Alcohol Use History: None Reported Past Drug Use History: None Reported - Past Family History Father Family Medical History: Myocardial Infarction (VT) Mother Family Medical History: Hypertension, Myocardial Infarction (VT) Additional Family Medical History / Comment(s): Mother of a VT at the age of 73 yrs. General Exam Limitations: altered mental status General appearance: alert, in no apparent distress Head exam: Present: atraumatic, normocephalic Eye exam: Present: normal appearance. Absent: scleral icterus, conjunctival injection Neck exam: Present: normal inspection Respiratory exam: Present: normal lung sounds bilaterally. Absent: respiratory distress, wheezes, rales, rhonchi, stridor Cardiovascular Exam: Present: regular rate, normal rhythm, normal heart sounds. Absent: systolic murmur, diastolic murmur, rubs, gallop GI/Abdominal exam: Present: soft. Absent: distended, tenderness, guarding Extremities exam: Present: normal inspection, normal capillary refill Back exam: Present: normal inspection Neurological exam: Present: alert Skin exam: Present: warm, dry, intact, normal color. Absent: rash Course Vital Signs 11/03/23 11/03/23 11/03/23 02:02 04:21 07:25 Temperature 98.5 F 99.1 F Pulse Rate 100 92 85 Respiratory 24 16 18 Rate Blood Pressure 143/76 112/63 111/65 O2 Sat by Pulse 97 97 96 Oximetry 11/03/23 11/03/23 11/03/23 08:06 08:46 09:13 Temperature 99.2 F 99.0 F Pulse Rate 98 85 86 Respiratory 19 20 21 Rate Blood Pressure 112/90 129/61 115/71 O2 Sat by Pulse 95 96 97 Oximetry 11/03/23 09:48 Temperature Pulse Rate 84 Respiratory 19 Rate Blood Pressure 103/69 O2 Sat by Pulse 96 Oximetry Medical Decision Making - Medical Decision Making This patient is 63-year-old man sent from long term for concerns about altered mental status. The patient known to staff here from relatively regular emergency department visits. On arrival he does appear to be at baseline. Patient appears at this point stable to go back to the long-term care facility. Patient will be given course of Macrobid as urinary antiseptic related to Stein catheter. Was pt. sent in by a medical professional or institution (, PA, SAND CUTTER, urgent care, hospital, or long term...) When possible be specific @ -[No] Did you speak to anyone other than the patient for history (EMS, parent, family, police, friend...)? What history was obtained from this source @ -[No] Did you review nursing and triage notes (agree or disagree)? Why? @ -[I reviewed and agree with nursing and triage notes] Were old charts reviewed (outside hosp., previous admission, EMS record, old EKG, old radiological studies, urgent care reports/EKG's, long term records)? Report findings @ -[Transfer paperwork was reviewed] Differential Diagnosis (chest pain, altered mental status, abdominal pain women, abdominal pain men, vaginal bleeding, weakness, fever, dyspnea, syncope, hea dache, dizziness, GI bleed, back pain, seizure, CVA, palpatations, mental health, musculoskeletal)? @ -[Differential Altered Mental Status: Hypoglycemia, DKA, hypercapnia, ETOH, overdose, CO poisoning, trauma, myxedema coma, HTN encephalopathy, infection, encephalitis, psychosis, intercranial hemo rrhage, hepatic encephalopathy, meningitis, CVA, this is not meant to be an all- inclusive list EKG interpreted by me (3pts min.). @ -[As above] X-rays interpreted by me (1pt min.). @ -[None done] CT interpreted by me (1pt min.). @ -[None done] U/S interpreted by me (1pt. min.). @ -[None done] What testing was considered but not performed or refused? (CT, X-rays, U/S, labs)? Why? @ -[None] What meds were considered but not given or refused? Why? @ -[None] Did you discuss the management of the patient with other professionals (professionals i.e. , PA, SAND CUTTER, lab, RT, psych nurse, social science analyst, magazine writer, teacher, district fire management officer, field nurse case manager)? Give summary @ -[No] Was smoking cessation discussed for >3mins.? @ -[No] Was critical care preformed (if so, how long)? @ -[No] Were there social determinants of health that impacted care today? How? (Homelessness, low income, unemployed, alcoholism, drug addiction, transportation, low edu. Level, literacy, decrease access to med. care, fdc, rehab)? @ -[No] Was there de-escalation of care discussed even if they declined (Discuss DNR or withdrawal of care, Hospice)? DNR status @ -[No] What co-morbidities impacted this encounter? (DM, HTN, Smoking, COPD, CAD, Cancer, CVA, ARF, Chemo, Hep., AIDS, mental health diagnosis, sleep apnea, morbid obesity)? @ -[None] Was patient admitted / discharged? Hospital course, mention meds given and route, prescriptions, significant lab abnormalities, going to OR and other pertinent info. @ -[As above Undiagnosed new problem with uncertain prognosis? @ -[No] Drug Therapy requiring intensive monitoring for toxicity (Heparin, Nitro, Insulin, Cardizem)? @ -[No] Were any procedures done? @ -[No] Diagnosis/symptom? @ -Altered mental status, resolved Acute, or Chronic, or Acute on Chronic? @ -[Acute Uncomplicated (without systemic symptoms) or Complicated (systemic symptoms)? @ -Uncomplicated Side effects of treatment? @ -[No] Exacerbation, Progression, or Severe Exacerbation? @ -[No] Poses a threat to life or bodily function? How? (Chest pain, USA, VT, pneumonia, PE, COPD, DKA, ARF, appy, cholecystitis, CVA, Diverticulitis, Homicidal, Suicidal, threat to staff... and all critical care pts) @ -[No] - Lab Data Result diagrams: 11/03/23 04:16 11/03/23 04:16 Lab Results 11/03/23 11/03/23 11/03/23 Range/Units 04:16 04:16 04:16 WBC 17.0 H (3.8-10.6) k/uL RBC 5.68 (4.30-5.90) m/uL Hgb 14.5 (13.0-17.5) gm/dL Hct 45.1 (39.0-53.0) % MCV 79.3 L (80.0-100.0) fL MCH 25.5 (25.0-35.0) pg MCHC 32.1 (31.0-37.0) g/dL RDW 17.3 H (11.5-15.5) % Plt Count 229 (150-450) k/uL MPV 9.2 Neutrophils % 88 % Lymphocytes % 4 % Monocytes % 5 % Eosinophils % 1 % Basophils % 0 % Neutrophils # 14.9 H (1.3-7.7) k/uL Lymphocytes # 0.7 L (1.0-4.8) k/uL Monocytes # 0.9 (0-1.0) k/uL Eosinophils # 0.2 (0-0.7) k/uL Basophils # 0.0 (0-0.2) k/uL Hypochromasia Slight Anisocytosis Slight Microcytosis Slight Sodium 139 (137-145) mmol/L Potassium 4.7 (3.5-5.1) mmol/L Chloride 110 H (98-107) mmol/L Carbon Dioxide 20 L (22-30) mmol/L Anion Gap 9 mmol/L BUN 30 H (9-20) mg/dL Creatinine 0.86 (0.66-1.25) mg/dL Est GFR (CKD-EPI)AfAm >90 (>60 ml/min/1.73 sqM) Est GFR (CKD-EPI)NonAf >90 (>60 ml/min/1.73 sqM) Glucose 124 H (74-99) mg/dL Plasma Lactic Acid Taurus 1.0 (0.7-2.0) mmol/L Calcium 8.6 (8.4-10.2) mg/dL Total Bilirubin 0.7 (0.2-1.3) mg/dL AST 25 (17-59) U/L ALT 23 (4-49) U/L Alkaline Phosphatase 98 (38-126) U/L Troponin I (0.000-0.034) ng/mL Total Protein 7.0 (6.3-8.2) g/dL Albumin 3.6 (3.5-5.0) g/dL 11/03/23 Range/Units 04:16 WBC (3.8-10.6) k/uL RBC (4.30-5.90) m/uL Hgb (13.0-17.5) gm/dL Hct (39.0-53.0) % MCV (80.0-100.0) fL MCH (25.0-35.0) pg MCHC (31.0-37.0) g/dL RDW (11.5-15.5) % Plt Count (150-450) k/uL MPV Neutrophils % % Lymphocytes % % Monocytes % % Eosinophils % % Basophils % % Neutrophils # (1.3-7.7) k/uL Lymphocytes # (1.0-4.8) k/uL Monocytes # (0-1.0) k/uL Eosinophils # (0-0.7) k/uL Basophils # (0-0.2) k/uL Hypochromasia Anisocytosis Microcytosis Sodium (137-145) mmol/L Potassium (3.5-5.1) mmol/L Chloride (98-107) mmol/L Carbon Dioxide (22-30) mmol/L Anion Gap mmol/L BUN (9-20) mg/dL Creatinine (0.66-1.25) mg/dL Est GFR (CKD-EPI)AfAm (>60 ml/min/1.73 sqM) Est GFR (CKD-EPI)NonAf (>60 ml/min/1.73 sqM) Glucose (74-99) mg/dL Plasma Lactic Acid Taurus (0.7-2.0) mmol/L Calcium (8.4-10.2) mg/dL Total Bilirubin (0.2-1.3) mg/dL AST (17-59) U/L ALT (4-49) U/L Alkaline Phosphatase (38-126) U/L Troponin I 0.031 (0.000-0.034) ng/mL Total Protein (6.3-8.2) g/dL Albumin (3.5-5.0) g/dL - EKG Data -: EKG Interpreted by Me EKG shows normal: sinus rhythm, axis (Normal), intervals (Normal), QRS complexes (Normal) Rate: normal (Rate 93 bpm) Interpretation: nonspecific ST-T wave changes Disposition Clinical Impression: Altered mental status Disposition: HOME SELF-CARE Condition: Good Instructions (If sedation given, give patient instructions): Urinary Tract Infection in Men (ED), Altered Mental Status (ED) Prescriptions: nitrofurantoin macrocrystaL 100 mg PO BID #14 cap Is patient prescribed a controlled substance at d/c from ED?: No Referrals: DEANGELO NEUMANN MD [Primary Care Provider] - 1-2 days
[2023-11-03 04:25] LABS: Anisocytosis Slight; Basophils % (A) 0 %; Eosinophils # (A) 0.2 k/uL (0-0.7); Eosinophils % (A) 1 %; HCT 45.1 % (39.0-53.0); HGB 14.5 gm/dL (13.0-17.5); Hypochromasia Slight; Lymphocytes # (A) 0.7 k/uL (1.0-4.8); Lymphocytes % (A) 4 %; MCH 25.5 pg (25.0-35.0); MCHC 32.1 g/dL (31.0-37.0); MCV 79.3 fL (80.0-100.0); Mean Platelet Volume 9.2; Microcytosis Slight; Monocytes # (A) 0.9 k/uL (0-1.0); Monocytes % (A) 5 %; Neutrophils # (A) 14.9 k/uL (1.3-7.7); Neutrophils % (A) 88 %; Platelet Count 229 k/uL (150-450); RBC 5.68 m/uL (4.30-5.90); RDW 17.3 % (11.5-15.5)
[2023-11-03 04:49] LABS: ALT 23 U/L (4-49); AST 25 U/L (17-59); African American GFR (CKD) >90 (>60 ml/min/1.73 sqM); Albumin 3.6 g/dL (3.5-5.0); Alkaline Phosphatase 98 U/L (38-126); Anion Gap 9 mmol/L; Blood Urea Nitrogen 30 mg/dL (9-20); Calcium 8.6 mg/dL (8.4-10.2); Carbon Dioxide 20 mmol/L (22-30); Chloride 110 mmol/L (98-107); Glucose 124 mg/dL (74-99); Non-African American GFR(CKD) >90 (>60 ml/min/1.73 sqM); Potassium 4.7 mmol/L (3.5-5.1); Sodium 139 mmol/L (137-145); Total Bilirubin 0.7 mg/dL (0.2-1.3)
[2023-11-03] MEDS: NITROFURANTOIN MONOHYD/M-CRYST 100 MG CAP PO STA (08:40)
[2023-11-03 09:17] VITALS: TEMP 99
[2023-11-03 10:11] VITALS: BP 103/69; PULSE 84; RESP 19
== END 2023-11-03 09:57 | disposition home or self-care (01) ==
LOC: EC 02:01
DX: R41.82 Altered mental status, unspecified (principal); I10 Essential (primary) hypertension; K21.9 Gastro-esophageal reflux disease without esophagitis; Z79.82 Long term (current) use of aspirin; Z79.899 Other long term (current) drug therapy; Z88.1 Allergy status to other antibiotic agents; Z86.718 Personal history of other venous thrombosis and embolism
CPT/HCPCS: 36415; 80053; 83605; 84484; 85025; 99285

== ENCOUNTER 2023-11-11 19:06 | Emergency (ER) | payer MEDICARE, OTHER ==
[2023-11-11 19:29] VITALS: TEMP 98
--- NOTE | 2023-11-11 19:35 | ED ---
Recheck HPI - General Chief Complaint: Recheck/Abnormal Lab/Rx Stated Complaint: Peg tube placement Time Seen by Provider: 11/11/23 19:11 Source: EMS, RN notes reviewed, old records reviewed Mode of arrival: EMS Limitations: no limitations - History of Present Illness Initial Comments: This is a 63-year-old male to the ER for evaluation. Patient presents today for evaluation regards to need for F PEG tube replacement. Patient comes in for recent care facility for PEG tube evaluation as it is stopped working per staff MD Complaint: wound re-check (PEG tube) -: hour(s) Returns Today for: other (PEG tube evaluation) Symptoms Since Prior Visit: no new symptoms Associated Symptoms: none Treatments Prior to Arrival: other (0) - Related Data Home Medications Medication Instructions Recorded Confirmed Aspirin 81 mg PEG/G-TUBE DAILY 11/27/20 11/18/23 Acetaminophen Tab [Tylenol] 650 mg PEG/G-TUBE Q4H PRN 06/13/21 11/18/23 Metoprolol Tartrate [Lopressor] 50 mg PEG/G-TUBE BID 06/13/21 11/18/23 carBAMazepine [carBAMazepine Oral 100 mg PEG/G-TUBE TID 07/02/21 11/18/23 Susp] Amantadine Hcl Solution 50mg/5ml 100 mg PEG/G-TUBE DAILY 12/22/21 11/18/23 Lactulose 20 gm PEG/G-TUBE TID 01/03/22 11/18/23 Scopolamine [Scopolamine 1 MG/72 2 patch TRANSDERM Q72H 01/03/22 11/18/23 HR patch] oxyBUTYnin chloride 5 mg PEG/G-TUBE Q8H 12/19/22 11/18/23 Atorvastatin [Lipitor] 40 mg PEG/G-TUBE HS 07/14/23 11/18/23 Famotidine [Pepcid] 20 mg PEG/G-TUBE DAILY 07/14/23 11/18/23 polyethylene glycoL 3350 [Miralax] 17 gm PEG/G-TUBE HS 10/17/23 11/18/23 Baclofen [Lioresal] 5 mg PEG/G-TUBE TID 11/18/23 11/18/23 Ipratropium-Albuterol Nebulize 3 ml INHALATION RT-Q8H 11/18/23 11/18/23 [Duoneb 0.5 mg-3 mg/3 ml Soln] Lacosamide [Vimpat Oral Soln] 150 mg PEG/G-TUBE Q12H 11/18/23 11/18/23 lisinopriL [Zestril] 2.5 mg PEG/G-TUBE DAILY 11/18/23 11/18/23 Previous Rx's Medication Instructions Recorded bisacodyL [Dulcolax] 10 mg RECTAL DAILY suppositor 09/26/23 Allergies Allergy/AdvReac Type Severity Reaction Status Date / Time meropenem [From Merrem] Allergy Rash/Hives Verified 11/18/23 17:23 ceftolozane [From Zerbaxa] AdvReac Rapid Verified 11/18/23 17:23 Heart Rate tazobactam [From Zerbaxa] AdvReac Rapid Verified 11/18/23 17:23 Heart Rate Review of Systems ROS Statement: Those systems with pertinent positive or pertinent negative responses have been documented in the HPI. ROS Other: All systems not noted in ROS Statement are negative. Past Medical History Past Medical History: Deep Vein Thrombosis (DVT), GERD/Reflux, Hypertension, Mus culoskeletal Disorder, Neurologic Disorder, Pneumonia, Seizure Disorder, Skin Disorder Additional Past Medical History / Comment(s): Pt diagnosed with MS at the age of 39 yrs, seizure/pneumonia/UTI with sepsis/respirtory failure/vented, cognitive impairment, sister states when he is feeling well he could speak a few words/nod head appropriately/give thumbs up/roll eyes but when ill is nonverbal, pt has dysphagia/NPO with peg tube, contractures, last seizure 07/2020, trigeminal neuralgia, dysarthria/anarthria/neurogenic bladder with IDC-UTIs/sepsis, multiple pneumonias, recent seizure-last one 07/03/20, incontinent of stool, pt has had decubitus ulcer coccyx-sister unsure of skin condition at this time, past anemia r/t heparin/epistaxiis which involved nasal packing/transfusions, DVT bilateral arms, hypoxia, oxygen at 2L/NC, L femoral head fracture History of Any Multi-Drug Resistant Organisms: ESBL, MRSA, Other MDRO Date of last positivie culture/infection: 03/09/21-MRSA; 11/23/19 ESBL-E.coli MDRO Source:: Abdomen-Peg site MRSA; Urine -ESBL Past Surgical History: Tonsillectomy Additional Past Surgical History / Comment(s): Gastrostomy, peg tube, I&D coccyx decubitius, bronchoscopy, bilateral lasik eye surgery. Past Anesthesia/Blood Transfusion Reactions: No Reported Reaction Additional Past Anesthesia/Blood Transfusion Reaction / Comment(s): Pt has received blood in past without reaction. Past Psychological History: Depression Smoking Status: Never smoker Past Alcohol Use History: None Reported Past Drug Use History: None Reported - Past Family History Father Family Medical History: Myocardial Infarction (PA) Mother Family Medical History: Hypertension, Myocardial Infarction (PA) Additional Family Medical History / Comment(s): Mother of a PA at the age of 73 yrs. General Exam General appearance: alert, in no apparent distress Head exam: Present: atraumatic, normocephalic, normal inspection Eye exam: Present: normal appearance, PERRL, EOMI. Absent: scleral icterus, conjunctival injection, periorbital swelling ENT exam: Present: normal exam, mucous membranes moist Neck exam: Present: normal inspection. Absent: tenderness, meningismus, lymphadenopathy Respiratory exam: Present: normal lung sounds bilaterally. Absent: respiratory distress, wheezes, rales, rhonchi, stridor Cardiovascular Exam: Present: regular rate, normal rhythm, normal heart sounds. Absent: systolic murmur, diastolic murmur, rubs, gallop, clicks GI/Abdominal exam: Present: soft, normal bowel sounds. Absent: distended, tenderness, guarding, rebound, rigid Extremities exam: Present: normal inspection, full ROM, normal capillary refill. Absent: tenderness, pedal edema, joint swelling, calf tenderness Back exam: Present: normal inspection Neurological exam: Present: alert, oriented X3, CN II-XII intact Psychiatric exam: Present: normal affect, normal mood Skin exam: Present: warm, dry, intact, normal color. Absent: rash Course Vital Signs 11/11/23 11/11/23 11/11/23 19:10 20:06 21:35 Temperature 98.0 F Pulse Rate 71 68 74 Respiratory 20 18 18 Rate Blood Pressure 152/88 162/96 155/80 O2 Sat by Pulse 97 98 97 Oximetry - Reevaluation(s) Reevaluation #1: 11/11/23 19:43 Medical records reviewed Reevaluation #2: 11/11/23 19:43 Patient symptoms are unchanged PEG tube was replaced Reevaluation #3: 11/11/23 19:43 Patient informed of results and questions answered Reevaluation #4: Was pt. sent in by a medical professional or institution ([facility], [facility], urgent care, hospital, or retirement...) When possible be specific @ -no Did you speak to anyone other than the patient for history (EMS, parent, family, police, friend...)? What history was obtained from this source @ -no Did you review nursing and triage notes (agree or disagree)? Why? @ -agree Are old charts reviewed (outside hosp., previous admission, EMS record, old EKG, old radiological studies, urgent care reports/EKG's, retirement records)? Report findings @ -yes Differential Diagnosis (chest pain, altered mental status, abdominal pain women, abdominal pain men, vaginal bleeding, weakness, fever, dyspnea, syncope, headache, dizziness, GI bleed, back pain, seizure, CVA, palpatations, mental health, musculoskeletal)? @ -prior EKG interpreted by me (3pts min.). @ -yes X-rays interpreted by me (1pt min.). @ -yes negative for acute disease CT interpreted by me (1pt min.). @ -no U/S interpreted by me (1pt. min.). @ -no What testing was considered but not performed or refused? (CT, X-rays, U/S, labs)? Why? @ -none What meds were considered but not given or refused? Why? @ -none Did you discuss the management of the patient with other professionals (professionals i.e. [facility], [facility], lab, RT, psych nurse, social insurance administrator, hosiery repairer, teacher, first officer, director of casework)? Give summary @ -no Was smoking cessation discussed for >3mins.? @ -no Was critical care preformed (if so, how long)? @ -no Were there social determinants of health that impacted care today? How? (Homelessness, low income, unemployed, alcoholism, drug addiction, transportati on, low edu. Level, literacy, decrease access to med. care, custodial, rehab)? @ -none Was there de-escalation of care discussed even if they declined (Discuss DNR or withdrawal of care, Hospice)? DNR status @ -no What co-morbidities impacted this encounter? (DM, HTN, Smoking, COPD, CAD, Cancer, CVA, ARF, Chemo, Hep., AIDS, mental health diagnosis, sleep apnea, morbid obesity)? @ -none Was patient admitted / discharged? Hospital course, mention meds given and route, prescriptions, significant lab abnormalities, going to OR and other pertinent info. @ -63 male to ER for evaluation of PEG tube replacement, tube was replaced here in the ER and can be discharged home Discharge Undiagnosed new problem with uncertain prognosis? @ -no Drug Therapy requiring intensive monitoring for toxicity (Heparin, Nitro, Insulin, Cardizem)? @ -no Were any procedures done? @ -PEG tube replacement Diagnosis/symptom? @ -PEG tube replacement Acute, or Chronic, or Acute on Chronic? @ -Acute Uncomplicated (without systemic symptoms) or Complicated (systemic symptoms)? @ -Complicated Side effects of treatment? @ -no Exacerbation, Progression, or Severe Exacerbation? @ -exacerbation Poses a threat to life or bodily function? How? (Chest pain, USA, PA, pneumonia, PE, COPD, DKA, ARF, appy, cholecystitis, CVA, Diverticulitis, Homicidal, Suicidal, threat to staff... and all critical care pts) @ -yes with inability to eat or drink Medical Decision Making - Medical Decision Making 63 male to ER for evaluation today. Patient unsafe for evaluation regards to need for PEG tube replacement PEG tube has been replaced. Disposition Clinical Impression: Altered mental status, PEG tube malfunction Narrative: PEG tube replacement Disposition: HOME SELF-CARE Condition: Good Instructions (If sedation given, give patient instructions): PEG Tube Insertion (DC) Is patient prescribed a controlled substance at d/c from ED?: No Referrals: None,Stated [Primary Care Provider] - 1-2 days Time of Disposition: 19:35
--- NOTE | 2023-11-11 20:13 | XR ---
EXAMINATION TYPE: XR KUB portable DATE OF EXAM: 11/11/2023 7:53 PM CLINICAL INDICATION:Male, 63 years old with history of PegOgram; PEG tube placement COMPARISON: 09/25/2023 TECHNIQUE: Supine radiographic view/s of the abdomen/pelvis obtained. FINDINGS: PEG tube tip overlies the stomach. Small amount of contrast is seen which appears to be in the gastri c lumen without evidence of contrast extravasation on this single view. Nonspecific bowel gas pattern, loops of small bowel and large bowel contain gas and appear mildly pro minent. Fecal material and gas are demonstrated throughout the colon and rectum. No gross evidence of organomegaly. No evidence of pneumoperitoneum in the limitations of supine technique. No pathologic calcifications are seen. Osseous structures appear grossly intact as seen. IMPRESSION: 1. PEG tube tip overlies the stomach. Small amount of contrast is seen which appears to be in the ga stric lumen without evidence of contrast extravasation on this single view. 2. Nonspecific, likely nonobstructive bowel gas pattern. If concern persists, consider follow-up rad iographs and/or CT.
[2023-11-11 20:23] VITALS: RESP 18
[2023-11-11 21:51] VITALS: BP 155/80; PULSE 74
== END 2023-11-11 21:37 | disposition home or self-care (01) ==
LOC: EC 19:06
DX: K94.23 Gastrostomy malfunction (principal); R41.82 Altered mental status, unspecified; I10 Essential (primary) hypertension; Z86.59 Personal history of other mental and behavioral disorders; Z79.899 Other long term (current) drug therapy; Z88.8 Allergy status to other drugs, medicaments and biological substances; Z79.82 Long term (current) use of aspirin; Z88.0 Allergy status to penicillin
CPT/HCPCS: 43762; 74018; 99284

== ENCOUNTER 2023-11-18 15:01 | Inpatient (IN) | payer MEDICARE, OTHER ==
--- NOTE | 2023-11-18 17:39 | XR ---
EXAMINATION TYPE: XR chest 2V DATE OF EXAM: 11/18/2023 5:08 PM CLINICAL INDICATION:Male, 63 years old with history of altered mental status; [facility] COMPARISON: Chest radiographs from 10/24/2023 TECHNIQUE: XR chest 2V Frontal and lateral views of the chest. FINDINGS: Lungs/Pleura: There is no evidence of pleural effusion, focal consolidation, or pneumothorax. Pulmonary vascularity: Pulmonary vascular congestion. Heart/mediastinum: Cardiomediastinal silhouette is enlarged and stable. Musculoskeletal: No acute osseous pathology. Other findings: None IMPRESSION: Cardiomegaly and mild pulmonary vascular congestion. Correlate with BNP for congestive heart failure.
--- NOTE | 2023-11-18 17:44 | ED ---
Altered Mental Status HPI - General Chief Complaint: Altered Mental Status Stated Complaint: AMS Time Seen by Provider: 11/18/23 15:15 Source: EMS Mode of arrival: EMS Limitations: language barrier, physical limitation - History of Present Illness Initial Comments: 63-year-old male with past medical history of advanced MS who presents to the emergency department from rehab facility. Sister is at bedside. States that the patient has had a significant decline all week. She states that he is more weak with a deep cough. He has also had significant diaphoresis. She noted that there was chunky material in his Stein catheter. She states that they replaced the catheter on the . She requested a urinalysis however states that the nursing staff would not perform 1. She reports that the patient is supposed to be on antibiotics after he was discharged from the hospital but that he was never placed on any. Reports that the rehab facility is not taking care of him. Unable to obtain IV access on the patient during transfer to the hospital. - Related Data Home Medications Medication Instructions Recorded Confirmed Aspirin 81 mg PEG/G-TUBE DAILY 11/27/20 11/18/23 Acetaminophen Tab [Tylenol] 650 mg PEG/G-TUBE Q4H PRN 06/13/21 11/18/23 Metoprolol Tartrate [Lopressor] 50 mg PEG/G-TUBE BID 06/13/21 11/18/23 carBAMazepine [carBAMazepine Oral 100 mg PEG/G-TUBE TID 07/02/21 11/18/23 Susp] Amantadine Hcl Solution 50mg/5ml 100 mg PEG/G-TUBE DAILY 12/22/21 11/18/23 Lactulose 20 gm PEG/G-TUBE TID 01/03/22 11/18/23 Scopolamine [Scopolamine 1 MG/72 2 patch TRANSDERM Q72H 01/03/22 11/18/23 HR patch] oxyBUTYnin chloride 5 mg PEG/G-TUBE Q8H 12/19/22 11/18/23 Atorvastatin [Lipitor] 40 mg PEG/G-TUBE HS 07/14/23 11/18/23 Famotidine [Pepcid] 20 mg PEG/G-TUBE DAILY 07/14/23 11/18/23 polyethylene glycoL 3350 [Miralax] 17 gm PEG/G-TUBE HS 10/17/23 11/18/23 Baclofen [Lioresal] 5 mg PEG/G-TUBE TID 11/18/23 11/18/23 Ipratropium-Albuterol Nebulize 3 ml INHALATION RT-Q8H 11/18/23 11/18/23 [Duoneb 0.5 mg-3 mg/3 ml Soln] Lacosamide [Vimpat Oral Soln] 150 mg PEG/G-TUBE Q12H 11/18/23 11/18/23 lisinopriL [Zestril] 2.5 mg PEG/G-TUBE DAILY 11/18/23 11/18/23 Previous Rx's Medication Instructions Recorded bisacodyL [Dulcolax] 10 mg RECTAL DAILY suppositor 09/26/23 Allergies Allergy/AdvReac Type Severity Reaction Status Date / Time meropenem [From Merrem] Allergy Rash/Hives Verified 11/18/23 17:23 ceftolozane [From Zerbaxa] AdvReac Rapid Verified 11/18/23 17:23 Heart Rate tazobactam [From Zerbaxa] AdvReac Rapid Verified 11/18/23 17:23 Heart Rate Review of Systems ROS Statement: Those systems with pertinent positive or pertinent negative responses have been documented in the HPI. ROS Other: All systems not noted in ROS Statement are negative. Past Medical History Past Medical History: Deep Vein Thrombosis (DVT), GERD/Reflux, Hypertension, Musculoskeletal Disorder, Neurologic Disorder, Pneumonia, Seizure Disorder, Skin Disorder Additional Past Medical History / Comment(s): Pt diagnosed with MS at the age of 39 yrs, seizure/pneumonia/UTI with sepsis/respirtory failure/vented, cognitive impairment, sister states when he is feeling well he could speak a few words/nod head appropriately/give thumbs up/roll eyes but when ill is nonverbal, pt has dysphagia/NPO with peg tube, contractures, last seizure 07/2020, trigeminal neuralgia, dysarthria/anarthria/neurogenic bladder with IDC-UTIs/sepsis, multiple pneumonias, recent seizure-last one 07/03/20, incontinent of stool, pt has had decubitus ulcer coccyx-sister unsure of skin condition at this time, past anemia r/t heparin/epistaxiis which involved nasal packing/transfusions, DVT bilateral arms, hypoxia, oxygen at 2L/NC, L femoral head fracture History of Any Multi-Drug Resistant Organisms: ESBL, MRSA, Other MDRO Date of last positivie culture/infection: 03/09/21-MRSA; 11/23/19 ESBL-E.coli MDRO Source:: Abdomen-Peg site MRSA; Urine -ESBL Past Surgical History: Tonsillectomy Additional Past Surgical History / Comment(s): Gastrostomy, peg tube, I&D coccyx decubitius, bronchoscopy, bilateral lasik eye surgery. Past Anesthesia/Blood Transfusion Reactions: No Reported Reaction Additional Past Anesthesia/Blood Transfusion Reaction / Comment(s): Pt has received blood in past without reaction. Past Psychological History: Depression Smoking Status: Never smoker Past Alcohol Use History: None Reported Past Drug Use History: None Reported - Past Family History Father Family Medical History: Myocardial Infarction ([place]) Mother Family Medical History: Hypertension, Myocardial Infarction ([place]) Additional Family Medical History / Comment(s): Mother of a [place] at the age of 73 yrs. General Exam Limitations: language barrier, physical limitation General appearance: alert, in no apparent distress Head exam: Present: atraumatic (Common body I), normocephalic, normal inspection ENT exam: Present: mucous membranes dry Respiratory exam: Present: rales Cardiovascular Exam: Present: regular rate, normal rhythm, normal heart sounds. Absent: systolic murmur, diastolic murmur, rubs, gallop, clicks GI/Abdominal exam: Present: distended (Okay) Extremities exam: Present: other (Contractured) Neurological exam: Present: other (Nonverbal) Psychiatric exam: Present: flat affect Course Vital Signs 11/18/23 11/18/23 11/18/23 15:13 18:57 20:00 Temperature 98.8 F Pulse Rate 94 72 70 Respiratory 18 18 20 Rate Blood Pressure 111/73 153/84 155/99 O2 Sat by Pulse 95 100 98 Oximetry 11/18/23 11/18/23 11/18/23 21:00 22:00 23:00 Temperature Pulse Rate 73 75 69 Respiratory 20 18 22 Rate Blood Pressure 142/82 127/79 142/84 O2 Sat by Pulse 98 99 98 Oximetry 11/19/23 11/19/23 00:13 02:32 Temperature 98.9 F Pulse Rate 75 97 Respiratory 18 20 Rate Blood Pressure 106/79 135/87 O2 Sat by Pulse 98 97 Oximetry Medical Decision Making - Medical Decision Making Was pt. sent in by a medical professional or institution (, CECIL, DISTRIBUTION TECHNICIAN, urgent care, hospital, or senior living...) When possible be specific @ -Rehab facility Did you speak to anyone other than the patient for history (EMS, parent, family, police, friend...)? What history was obtained from this source @ -Sister Did you review nursing and triage notes (agree or disagree)? Why? @ -I reviewed and agree with nursing and triage notes Were old charts reviewed (outside hosp., previous admission, EMS record, old EKG, old radiological studies, urgent care reports/EKG's, senior living records)? Report findings @ -Reviewed patient's previous discharge summary where he was supposed to receive outpatient antibiotics Differential Diagnosis (chest pain, altered mental status, abdominal pain women, abdominal pain men, vaginal bleeding, weakness, fever, dyspnea, syncope, headache, dizziness, GI bleed, back pain, seizure, CVA, palpatations, mental health, musculoskeletal)? @ -Differential Altered Mental Status: Hypoglycemia, DKA, hypercapnia, ETOH, overdose, CO poisoning, trauma, myxedema coma, HTN encephalopathy, infection, encephalitis, psychosis, intercranial hemorrhage, hepatic encephalopathy, meningitis, CVA, this is not meant to be an all-inclusive list EKG interpreted by me (3pts min.). @ -Yes and demonstrates sinus rhythm with a rate of 71. [place] interval 160. QRS 91. QTc of 404. No acute ST segment elevations or depressions X-rays interpreted by me (1pt min.). @ -Yes and demonstrates pulmonary edema CT interpreted by me (1pt min.). @ -None done U/S interpreted by me (1pt. min.). @ -None done What testing was considered but not performed or refused? (CT, X-rays, U/S, labs)? Why? @ -None What meds were considered but not given or refused? Why? @ -Antibiotics were considered however patient has no fever or white count and therefore we will hold off on antibiotics for UA at this time Did you discuss the management of the patient with other professionals (professionals i.e. CECIL Ribera, DISTRIBUTION TECHNICIAN, lab, RT, psych nurse, social human services assistants, rotary drill rig operator, teacher, aviation ordnance officer, cyanide case hardener)? Give summary @ -Spoke with Paula from [facility] Was smoking cessation discussed for >3mins.? @ -No Was critical care preformed (if so, how long)? @ -No Were there social determinants of health that impacted care today? How? (Homelessness, low income, unemployed, alcoholism, drug addiction, transportat ion, low edu. Level, literacy, decrease access to med. care, long term, rehab)? @ -Patient resides in rehab Was there de-escalation of care discussed even if they declined (Discuss DNR or withdrawal of care, Hospice)? DNR status @ -Yes and sister would like to keep the patient a full code. Would also like to pursue port placement if the patient has lack of IV access What co-morbidities impacted this encounter? (DM, HTN, Smoking, COPD, CAD, Cancer, CVA, ARF, Chemo, Hep., AIDS, mental health diagnosis, sleep apnea, morbid obesity)? @ -Advanced MS and therefore patient is nonverbal Was patient admitted / discharged? Hospital course, mention meds given and route, prescriptions, significant lab abnormalities, going to OR and other pertinent info. @ -Admitted. Upon arrival patient placed into room 15. Thorough history and physical exam was performed. It did require several nurses and myself to place an ultrasound-guided IV. Blood work was obtained. Patient has deep cough with some shortness of breath. Chest x-ray demonstrates pulmonary edema. He was given a dose of Lasix. UA is obtained however as patient does not have white count or fever I will hold off on antibiotics at this time. Patient will be admitted with consult to Dr. Farah. Sister interested in port placement for the patient. Informed that I would have to contact surgery in regards to this. Patient admitted in stable condition Undiagnosed new problem with uncertain prognosis? @ -Yes Drug Therapy requiring intensive monitoring for toxicity (Heparin, Nitro, Insulin, Cardizem)? @ -No Were any procedures done? @ -No Diagnosis/symptom? @ -Acute encephalopathy, acute exacerbation of CHF, chronic abnormal UA due to indwelling Stein Acute, or Chronic, or Acute on Chronic? @ -Acute on chronic Uncomplicated (without systemic symptoms) or Complicated (systemic symptoms)? @ -Complicated Side effects of treatment? @ -No Exacerbation, Progression, or Severe Exacerbation? @ -Yes Poses a threat to life or bodily function? How? (Chest pain, [place], [place], pneumonia, PE, COPD, DKA, ARF, appy, cholecystitis, CVA, Diverticulitis, Homicidal, Suicidal, threat to staff... and all critical care pts) @ -No - Lab Data Result diagrams: 11/19/23 07:55 11/19/23 07:55 Lab Results 11/18/23 11/18/23 11/18/23 Range/Units 17:40 17:40 17:40 WBC 7.9 (3.8-10.6) k/uL RBC 4.99 (4.30-5.90) m/uL Hgb 12.7 L (13.0-17.5) gm/dL Hct 40.7 (39.0-53.0) % MCV 81.5 (80.0-100.0) fL MCH 25.5 (25.0-35.0) pg MCHC 31.2 (31.0-37.0) g/dL RDW 17.9 H (11.5-15.5) % Plt Count 230 (150-450) k/uL MPV 8.9 Neutrophils % 70 % Lymphocytes % 15 % Monocytes % 7 % Eosinophils % 6 % Basophils % 0 % Neutrophils # 5.5 (1.3-7.7) k/uL Lymphocytes # 1.2 (1.0-4.8) k/uL Monocytes # 0.6 (0-1.0) k/uL Eosinophils # 0.5 (0-0.7) k/uL Basophils # 0.0 (0-0.2) k/uL Hypochromasia Slight Anisocytosis Slight Microcytosis Slight PT 10.6 (10.0-12.5) sec INR 1.0 (<1.2) APTT 24.6 (22.0-30.0) sec Sodium (137-145) mmol/L Potassium (3.5-5.1) mmol/L Chloride (98-107) mmol/L Carbon Dioxide (22-30) mmol/L Anion Gap mmol/L BUN (9-20) mg/dL Creatinine (0.66-1.25) mg/dL Est GFR (CKD-EPI)AfAm (>60 ml/min/1.73 sqM) Est GFR (CKD-EPI)NonAf (>60 ml/min/1.73 sqM) Glucose (74-99) mg/dL Calcium (8.4-10.2) mg/dL Total Bilirubin (0.2-1.3) mg/dL AST (17-59) U/L ALT (4-49) U/L Alkaline Phosphatase (38-126) U/L Troponin I (0.000-0.034) ng/mL NT-Pro-B Natriuret Pep pg/mL Total Protein (6.3-8.2) g/dL Albumin (3.5-5.0) g/dL Procalcitonin (0.02-0.09) ng/mL Urine Color Urine Appearance (Clear) Urine pH (5.0-8.0) Ur Specific [place] (1.001-1.035) Urine Protein (Negative) Urine Glucose (UA) (Negative) Urine Ketones (Negative) Urine Blood (Negative) Urine Nitrite (Negative) Urine Bilirubin (Negative) Urine Urobilinogen (<2.0) mg/dL Ur Leukocyte Esterase (Negative) Urine RBC (0-5) /hpf Urine WBC (0-5) /hpf Urine WBC Clumps (None) /hpf Ur Squamous Epith Cells (0-4) /hpf Triple Phos Crystals (None) /hpf Urine Bacteria (None) /hpf Urine Mucus (None) /hpf Urine Opiates Screen Not Detected (NotDetected) Ur Oxycodone Screen Not Detected (NotDetected) Urine Methadone Screen Not Detected (NotDetected) Ur Barbiturates Screen Not Detected (NotDetected) U Tricyclic Antidepress Not Detected (NotDetected) Ur Phencyclidine Scrn Not Detected (NotDetected) Ur Amphetamines Screen Not Detected (NotDetected) U Methamphetamines Scrn Not Detected (NotDetected) U Benzodiazepines Scrn Not Detected (NotDetected) Urine Cocaine Screen Not Detected (NotDetected) U Marijuana (THC) Screen Not Detected (NotDetected) 11/18/23 11/18/23 11/18/23 Range/Units 17:40 17:40 17:40 WBC (3.8-10.6) k/uL RBC (4.30-5.90) m/uL Hgb (13.0-17.5) gm/dL Hct (39.0-53.0) % MCV (80.0-100.0) fL MCH (25.0-35.0) pg MCHC (31.0-37.0) g/dL RDW (11.5-15.5) % Plt Count (150-450) k/uL MPV Neutrophils % % Lymphocytes % % Monocytes % % Eosinophils % % Basophils % % Neutrophils # (1.3-7.7) k/uL Lymphocytes # (1.0-4.8) k/uL Monocytes # (0-1.0) k/uL Eosinophils # (0-0.7) k/uL Basophils # (0-0.2) k/uL Hypochromasia Anisocytosis Microcytosis PT (10.0-12.5) sec INR (<1.2) APTT (22.0-30.0) sec Sodium 141 (137-145) mmol/L Potassium 3.9 (3.5-5.1) mmol/L Chloride 108 H (98-107) mmol/L Carbon Dioxide 28 (22-30) mmol/L Anion Gap 5 mmol/L BUN 24 H (9-20) mg/dL Creatinine 0.75 (0.66-1.25) mg/dL Est GFR (CKD-EPI)AfAm >90 (>60 ml/min/1.73 sqM) Est GFR (CKD-EPI)NonAf >90 (>60 ml/min/1.73 sqM) Glucose 94 (74-99) mg/dL Calcium 8.5 (8.4-10.2) mg/dL Total Bilirubin 0.4 (0.2-1.3) mg/dL AST 21 (17-59) U/L ALT 20 (4-49) U/L Alkaline Phosphatase 87 (38-126) U/L Troponin I 0.025 (0.000-0.034) ng/mL NT-Pro-B Natriuret Pep pg/mL Total Protein 6.3 (6.3-8.2) g/dL Albumin 3.3 L (3.5-5.0) g/dL Procalcitonin (0.02-0.09) ng/mL Urine Color Yellow Urine Appearance Turbid (Clear) Urine pH 7.0 (5.0-8.0) Ur Specific [place] 1.022 (1.001-1.035) Urine Protein 1+ H (Negative) Urine Glucose (UA) Negative (Negative) Urine Ketones Negative (Negative) Urine Blood Negative (Negative) Urine Nitrite Negative (Negative) Urine Bilirubin Negative (Negative) Urine Urobilinogen <2.0 (<2.0) mg/dL Ur Leukocyte Esterase Large H (Negative) Urine RBC 16 H (0-5) /hpf Urine WBC >182 H (0-5) /hpf Urine WBC Clumps Many H (None) /hpf Ur Squamous Epith Cells 1 (0-4) /hpf Triple Phos Crystals Few H (None) /hpf Urine Bacteria Few H (None) /hpf Urine Mucus Moderate H (None) /hpf Urine Opiates Screen (NotDetected) Ur Oxycodone Screen (NotDetected) Urine Methadone Screen (NotDetected) Ur Barbiturates Screen (NotDetected) U Tricyclic Antidepress (NotDetected) Ur Phencyclidine Scrn (NotDetected) Ur Amphetamines Screen (NotDetected) U Methamphetamines Scrn (NotDetected) U Benzodiazepines Scrn (NotDetected) Urine Cocaine Screen (NotDetected) U Marijuana (THC) Screen (NotDetected) 11/18/23 11/18/23 Range/Units 17:40 17:40 WBC (3.8-10.6) k/uL RBC (4.30-5.90) m/uL Hgb (13.0-17.5) gm/dL Hct (39.0-53.0) % MCV (80.0-100.0) fL MCH (25.0-35.0) pg MCHC (31.0-37.0) g/dL RDW (11.5-15.5) % Plt Count (150-450) k/uL MPV Neutrophils % % Lymphocytes % % Monocytes % % Eosinophils % % Basophils % % Neutrophils # (1.3-7.7) k/uL Lymphocytes # (1.0-4.8) k/uL Monocytes # (0-1.0) k/uL Eosinophils # (0-0.7) k/uL Basophils # (0-0.2) k/uL Hypochromasia Anisocytosis Microcytosis PT (10.0-12.5) sec INR (<1.2) APTT (22.0-30.0) sec Sodium (137-145) mmol/L Potassium (3.5-5.1) mmol/L Chloride (98-107) mmol/L Carbon Dioxide (22-30) mmol/L Anion Gap mmol/L BUN (9-20) mg/dL Creatinine (0.66-1.25) mg/dL Est GFR (CKD-EPI)AfAm (>60 ml/min/1.73 sqM) Est GFR (CKD-EPI)NonAf (>60 ml/min/1.73 sqM) Glucose (74-99) mg/dL Calcium (8.4-10.2) mg/dL Total Bilirubin (0.2-1.3) mg/dL AST (17-59) U/L ALT (4-49) U/L Alkaline Phosphatase (38-126) U/L Troponin I (0.000-0.034) ng/mL NT-Pro-B Natriuret Pep 353 pg/mL Total Protein (6.3-8.2) g/dL Albumin (3.5-5.0) g/dL Procalcitonin 0.12 H (0.02-0.09) ng/mL Urine Color Urine Appearance (Clear) Urine pH (5.0-8.0) Ur Specific [place] (1.001-1.035) Urine Protein (Negative) Urine Glucose (UA) (Negative) Urine Ketones (Negative) Urine Blood (Negative) Urine Nitrite (Negative) Urine Bilirubin (Negative) Urine Urobilinogen (<2.0) mg/dL Ur Leukocyte Esterase (Negative) Urine RBC (0-5) /hpf Urine WBC (0-5) /hpf Urine WBC Clumps (None) /hpf Ur Squamous Epith Cells (0-4) /hpf Triple Phos Crystals (None) /hpf Urine Bacteria (None) /hpf Urine Mucus (None) /hpf Urine Opiates Screen (NotDetected) Ur Oxycodone Screen (NotDetected) Urine Methadone Screen (NotDetected) Ur Barbiturates Screen (NotDetected) U Tricyclic Antidepress (NotDetected) Ur Phencyclidine Scrn (NotDetected) Ur Amphetamines Screen (NotDetected) U Methamphetamines Scrn (NotDetected) U Benzodiazepines Scrn (NotDetected) Urine Cocaine Screen (NotDetected) U Marijuana (THC) Screen (NotDetected) Disposition Clinical Impression: Abnormal urinalysis, Encephalopathy acute, Acute respiratory insufficiency Disposition: ADMITTED IP TO THIS HOSP Condition: Stable Is patient prescribed a controlled substance at d/c from ED?: No Time of Disposition: 19:42 Decision to Admit Reason: Admit from EC Decision Date: 11/18/23 Decision Time: 19:42
[2023-11-18 18:04] LABS: Anisocytosis Slight; Basophils % (A) 0 %; Eosinophils # (A) 0.5 k/uL (0-0.7); Eosinophils % (A) 6 %; HCT 40.7 % (39.0-53.0); HGB 12.7 gm/dL (13.0-17.5); Hypochromasia Slight; Lymphocytes # (A) 1.2 k/uL (1.0-4.8); Lymphocytes % (A) 15 %; MCH 25.5 pg (25.0-35.0); MCHC 31.2 g/dL (31.0-37.0); MCV 81.5 fL (80.0-100.0); Mean Platelet Volume 8.9; Microcytosis Slight; Monocytes # (A) 0.6 k/uL (0-1.0); Monocytes % (A) 7 %; Neutrophils # (A) 5.5 k/uL (1.3-7.7); Neutrophils % (A) 70 %; Platelet Count 230 k/uL (150-450); RBC 4.99 m/uL (4.30-5.90); RDW 17.9 % (11.5-15.5); WBC 7.9 k/uL (3.8-10.6)
[2023-11-18 18:19] LABS: Partial Thromboplastin Time 24.6 sec (22.0-30.0); Prothrombin Time 10.6 sec (10.0-12.5)
[2023-11-18 18:22] LABS: ALT 20 U/L (4-49); AST 21 U/L (17-59); African American GFR (CKD) >90 (>60 ml/min/1.73 sqM); Albumin 3.3 g/dL (3.5-5.0); Alkaline Phosphatase 87 U/L (38-126); Anion Gap 5 mmol/L; Blood Urea Nitrogen 24 mg/dL (9-20); Calcium 8.5 mg/dL (8.4-10.2); Carbon Dioxide 28 mmol/L (22-30); Chloride 108 mmol/L (98-107); Glucose 94 mg/dL (74-99); Non-African American GFR(CKD) >90 (>60 ml/min/1.73 sqM); Potassium 3.9 mmol/L (3.5-5.1); Sodium 141 mmol/L (137-145); Total Bilirubin 0.4 mg/dL (0.2-1.3); Total Protein 6.3 g/dL (6.3-8.2)
[2023-11-18 18:23] LABS: Appearance,Urine Turbid (Clear); Bacteria,Urine Few /hpf; Bilirubin,Urine Negative (Negative); Blood,Urine Negative (Negative); Color,Urine Yellow; Glucose,Urine (UA) Negative (Negative); Ketones,Urine Negative (Negative); Leukocyte Esterase,Urine Large (Negative); Mucus,Urine Moderate /hpf; Nitrite,Urine Negative (Negative); Protein,Urine 1+ (Negative); RBC,Urine 16 /hpf (0-5); Specific Gravity,Urine 1.022 (1.001-1.035); Squamous Epithelial Cell,Urine 1 /hpf (0-4); Triple Phosphate Crystal,Urine Few /hpf; Urobilinogen,Urine <2.0 mg/dL (<2.0); WBC,Urine >182 /hpf (0-5)
[2023-11-18 18:28] LABS: Amphetamine Screen,Urine Not Detected (NotDetected); Barbiturate Screen,Urine Not Detected (NotDetected); Benzodiazepines Screen,Urine Not Detected (NotDetected); Cocaine Screen,Urine Not Detected (NotDetected); Methadone Screen, Urine Not Detected (NotDetected); Opiate Screen,Urine Not Detected (NotDetected); Oxycodone Screen, Urine Not Detected (NotDetected); Phencyclidine Screen,Urine Not Detected (NotDetected); Tricyclic Antidepressant,Urine Not Detected (NotDetected); Urn Cannabinoid Scrn Not Detected (NotDetected)
[2023-11-18] MEDS ORDERED: NALOXONE 0.4 MG/ML 1 ML VIAL IV PRN (19:44)
[2023-11-18] MEDS ORDERED: ACETAMINOPHEN TAB 325 MG TAB PEG/G-TUBE PRN (20:33)
[2023-11-18] MEDS: Lacosamide IV (ages 17+ yrs) 200 MG/20 ML ML IVP SCH (21:59)
[2023-11-18] MEDS: LACTULOSE 20 GM/30 ML CUP PEG/G-TUBE SCH (21:59)
[2023-11-18] MEDS: polyethylene glycoL 3350 17 GM POWD.PACK PEG/G-TUBE SCH (21:59)
[2023-11-18] MEDS: FUROSEMIDE 10 MG/ML 4 ML VIAL IV STA (21:59)
[2023-11-18] MEDS: oxyBUTYnin chloride 5 MG TAB PEG/G-TUBE SCH (22:00)
[2023-11-18] MEDS: METOPROLOL TARTRATE 50 MG TAB PEG/G-TUBE SCH (22:00)
[2023-11-18] MEDS: ATORVASTATIN 40 MG TAB PEG/G-TUBE SCH (22:00)
[2023-11-18] MEDS: SCOPOLAMINE 1 MG/72 HR PATCH TRANSDERM SCH (22:00)
[2023-11-18] MEDS: BACLOFEN 10 MG TAB PEG/G-TUBE SCH (22:00)
[2023-11-19] MEDS ORDERED: IPRATROPIUM-ALBUTEROL 3 ML NEB INHALATION SCH
[2023-11-19] MEDS: FAMOTIDINE 20 MG TAB PEG/G-TUBE SCH (08:03)
[2023-11-19] MEDS: ASPIRIN 81 MG PEG/G-TUBE SCH (08:03)
[2023-11-19] MEDS: bisacodyL 10 MG SUPP RECTAL SCH (08:03)
[2023-11-19] MEDS: IPRATROPIUM-ALBUTEROL 3 ML NEB INHALATION SCH (08:04)
[2023-11-19 11:10] LABS: Calcium 8.8 mg/dL (8.7-10.3); Chloride 105 mmol/L (96-109); Glucose 108 mg/dL (70-110); Sodium 144 mmol/L (135-145)
--- NOTE | 2023-11-19 11:54 | P.HPIM ---
History of Present Illness H&P Date: 11/19/23 History of present illness; Patient is a 63-year-old male with a past medical history of hypertension, multiple sclerosis, seizure disorder, dementia, chronic indwelling Stein catheter ,multiple urinary tract infection, dysphagia on PEG tube, neurogenic bladder. Patient is awake and alert x1 but nonverbal at baseline. Patient is a resident of a long term facility was brought to the ER for increasing lethargy and confusion. Nursing staff reported the patient was more lethargic, there was no complaint of fever or chills. No current nausea or vomiting..Initial lab work done in the ER showed WBC 7.9, hemoglobin 12.7, platelet count 230, sodium 141, potassium 3.9, BUN 24, creatinine 0.75, troponin 0.025, UA done showed nitrite negative, large amount of leukocyte Estrace, urine WBC more than 182 Urine tox screen negative EKG done in the ER showed heart rate of 71, no ST segment elevation or depression seen, no T-wave inversions seen. Chest x-ray done in the ER showed cardiomegaly and mild pulmonary vascular congestion. Patient admitted to internal medicine service REVIEW OF SYSTEMS: Review of system cannot be obtained as patient is nonverbal at baseline PHYSICAL EXAMINATION: GENERAL: The patient is alert alert to self, patient is chronically ill-looking HEENT: Pupils are round and equally reacting to light. EOMI. No scleral icterus. No conjunctival pallor. Normocephalic, atraumatic. No pharyngeal erythema. No thyromegaly. CARDIOVASCULAR: S1 and S2 present. No murmurs, rubs, or gallops. PULMONARY: Chest is clear to auscultation, no wheezing or crackles. ABDOMEN: Soft, nontender, nondistended, normoactive bowel sounds. No palpable organomegaly. PEG tube seen MUSCULOSKELETAL: No joint swelling or deformity. EXTREMITIES: No cyanosis, clubbing, or pedal edema. NEUROLOGICAL:awake, alert x1. Nonverbal. Patient is bedbound. SKIN: No rashes. Assessment and plan Acute metabolic encephalopathy UTI Neurogenic bladder and history of multiple urinary tract infections Multiple sclerosis at age 39. Currently patient is bedbound Seizure disorder Cognitive impairment Hypertension GERD History of DVT Dysphagia/n.p.o. on PEG tube feeding History of trigeminal neuralgia History of ESBL E. coli urinary tract infections Depression Monitor vital signs Monitor CBC Monitor CMP fall precautions Continue tube feeding Continue aspirin, Lipitor Continue carbamazepine, lacosamide, amantadine Resume tube feeding Consult ID Labs and medication were reviewed.. Continue same treatment. Continue with symptomatic treatment. Resume home medication. Monitor labs and vitals. DVT and GI prophylaxis. Further recommendations as per clinical course of the patient Dictation was produced using [employer] dictation software. please excuse any g rammatical, word or spelling errors. Past Medical History Past Medical History: Deep Vein Thrombosis (DVT), GERD/Reflux, Hypertension, Musculoskeletal Disorder, Neurologic Disorder, Pneumonia, Seizure Disorder, Skin Disorder Additional Past Medical History / Comment(s): Pt diagnosed with MS at the age of 39 yrs, seizure/pneumonia/UTI with sepsis/respirtory failure/vented, cognitive impairment, sister states when he is feeling well he could speak a few words/nod head appropriately/give thumbs up/roll eyes but when ill is nonverbal, pt has dysphagia/NPO with peg tube, contractures, last seizure 07/2020, trigeminal neuralgia, dysarthria/anarthria/neurogenic bladder with IDC-UTIs/sepsis, multiple pneumonias, recent seizure-last one 07/03/20, incontinent of stool, pt has had decubitus ulcer coccyx-sister unsure of skin condition at this time, past anemia r/t heparin/epistaxiis which involved nasal packing/transfusions, DVT bilateral arms, hypoxia, oxygen at 2L/NC, L femoral head fracture History of Any Multi-Drug Resistant Organisms: ESBL, MRSA, Other MDRO Date of last positivie culture/infection: 03/09/21-MRSA; 11/23/19 ESBL-E.coli MDRO Source:: Abdomen-Peg site MRSA; Urine -ESBL Past Surgical History: Tonsillectomy Additional Past Surgical History / Comment(s): Gastrostomy, peg tube, I&D coccyx decubitius, bronchoscopy, bilateral lasik eye surgery. Past Anesthesia/Blood Transfusion Reactions: No Reported Reaction Additional Past Anesthesia/Blood Transfusion Reaction / Comment(s): Pt has received blood in past without reaction. Past Psychological History: Depression Additional Psychological History / Comment(s): Pt resides at [facility]. He normally is in bed/amita lift to wheelchair. Has peg/IDC Smoking Status: Never smoker Past Alcohol Use History: None Reported Past Drug Use History: None Reported - Past Family History Father Family Medical History: Myocardial Infarction (NE) Mother Family Medical History: Hypertension, Myocardial Infarction (NE) Additional Family Medical History / Comment(s): Mother of a NE at the age of 73 yrs. Medications and Allergies Home Medications Medication Instructions Recorded Confirmed Type Aspirin 81 mg PEG/G-TUBE DAILY 11/27/20 11/18/23 History Acetaminophen Tab [Tylenol] 650 mg PEG/G-TUBE Q4H PRN 06/13/21 11/18/23 History Metoprolol Tartrate [Lopressor] 50 mg PEG/G-TUBE BID 06/13/21 11/18/23 History carBAMazepine [carBAMazepine Oral 100 mg PEG/G-TUBE TID 07/02/21 11/18/23 Histor y Susp] Amantadine Hcl Solution 50mg/5ml 100 mg PEG/G-TUBE DAILY 12/22/21 11/18/23 History Lactulose 20 gm PEG/G-TUBE TID 01/03/22 11/18/23 History Scopolamine [Scopolamine 1 MG/72 2 patch TRANSDERM Q72H 01/03/22 11/18/23 History HR patch] oxyBUTYnin chloride 5 mg PEG/G-TUBE Q8H 12/19/22 11/18/23 History Atorvastatin [Lipitor] 40 mg PEG/G-TUBE HS 07/14/23 11/18/23 History Famotidine [Pepcid] 20 mg PEG/G-TUBE DAILY 07/14/23 11/18/23 History bisacodyL [Dulcolax] 10 mg RECTAL DAILY suppositor 09/26/23 11/18/23 Rx polyethylene glycoL 3350 [Miralax] 17 gm PEG/G-TUBE HS 10/17/23 11/18/23 History Baclofen [Lioresal] 5 mg PEG/G-TUBE TID 11/18/23 11/18/23 History Ipratropium-Albuterol Nebulize 3 ml INHALATION RT-Q8H 11/18/23 11/18/23 History [Duoneb 0.5 mg-3 mg/3 ml Soln] Lacosamide [Vimpat Oral Soln] 150 mg PEG/G-TUBE Q12H 11/18/23 11/18/23 History lisinopriL [Zestril] 2.5 mg PEG/G-TUBE DAILY 11/18/23 11/18/23 History Allergies Allergy/AdvReac Type Severity Reaction Status Date / Time meropenem [From Merrem] Allergy Rash/Hives Verified 11/18/23 17:23 ceftolozane [From Zerbaxa] AdvReac Rapid Verified 11/18/23 17:23 Heart Rate tazobactam [From Zerbaxa] AdvReac Rapid Verified 11/18/23 17:23 Heart Rate Physical Exam Vitals: Vital Signs Temp Pulse Pulse Resp BP BP Pulse Ox 11/19/23 08:13 84 11/19/23 08:05 83 11/19/23 07:51 98.1 F 83 18 121/71 99 11/19/23 03:00 97.5 F L 72 20 125/73 99 11/19/23 02:32 98.9 F 97 20 135/87 97 11/19/23 00:13 75 18 106/79 98 11/18/23 23:00 69 22 142/84 98 11/18/23 22:00 75 18 127/79 99 11/18/23 21:00 73 20 142/82 98 11/18/23 20:00 70 20 155/99 98 11/18/23 18:57 72 18 153/84 100 11/18/23 15:13 98.8 F 94 18 111/73 95 Intake and Output 11/18/23 11/19/23 11/19/23 22:59 06:59 14:59 Intake Total 220 Output Total 2100 Balance -1880 Intake: Oral 220 Output: Urine 2100 Other: # Bowel Movements 1 Weight 106.594 kg Results CBC & Chem 7: 11/18/23 17:40 11/19/23 07:55 Labs: Abnormal Lab Results - Last 24 Hours (Table) 11/18/23 11/18/23 11/18/23 Range/Units 17:40 17:40 17:40 Hgb 12.7 L (13.0-17.5) gm/dL RDW 17.9 H (11.5-15.5) % Chloride 108 H (98-107) mmol/L BUN 24 H (9-20) mg/dL Albumin 3.3 L (3.5-5.0) g/dL Procalcitonin (0.02-0.09) ng/mL Urine Protein 1+ H (Negative) Ur Leukocyte Esterase Large H (Negative) Urine RBC 16 H (0-5) /hpf Urine WBC >182 H (0-5) /hpf Urine WBC Clumps Many H (None) /hpf Triple Phos Crystals Few H (None) /hpf Urine Bacteria Few H (None) /hpf Urine Mucus Moderate H (None) /hpf 11/18/23 Range/Units 17:40 Hgb (13.0-17.5) gm/dL RDW (11.5-15.5) % Chloride (98-107) mmol/L BUN (9-20) mg/dL Albumin (3.5-5.0) g/dL Procalcitonin 0.12 H (0.02-0.09) ng/mL Urine Protein (Negative) Ur Leukocyte Esterase (Negative) Urine RBC (0-5) /hpf Urine WBC (0-5) /hpf Urine WBC Clumps (None) /hpf Triple Phos Crystals (None) /hpf Urine Bacteria (None) /hpf Urine Mucus (None) /hpf Thrombosis Risk Factor Assmnt - Choose All That Apply Each Factor Represents 1 point: Medical pt on bed rest, Obesity (BMI >25) Other Risk Factors: Yes Each Risk Factor Represents 2 Points: Age 61-74 years, Patient confined to bed Other congenital or acquired thrombophilia - If yes, enter type in comment: No Thrombosis Risk Factor Assessment Total Risk Factor Score: 6 Thrombosis Risk Factor Assessment Level: High Risk
[2023-11-19] MEDS: SODIUM CHLORIDE 0.9% 1,000 ML IV SCH (12:11)
[2023-11-19] MEDS: ERTAPENEM 1 GM in SODIUM CHLORIDE 0.9% 50 ML IVPB SCH (12:18)
[2023-11-19 17:25] LABS: Appearance,Urine Cloudy (Clear); Bacteria,Urine Rare /hpf; Bilirubin,Urine Negative (Negative); Blood,Urine Trace (Negative); Color,Urine Yellow; Glucose,Urine (UA) Negative (Negative); Ketones,Urine Negative (Negative); Leukocyte Esterase,Urine Large (Negative); Mucus,Urine Rare /hpf; Nitrite,Urine Negative (Negative); PH, Urine 6.5 (5.0-8.0); Protein,Urine 1+ (Negative); RBC,Urine 12 /hpf (0-5); Specific Gravity,Urine 1.021 (1.001-1.035); Squamous Epithelial Cell,Urine 1 /hpf (0-4); Urobilinogen,Urine <2.0 mg/dL (<2.0); WBC,Urine >182 /hpf (0-5)
[2023-11-19 19:00] LABS: Basophils # (A) 0.04 X 10*3/uL (0.00-0.10); Basophils % (A) 0.5 %; Eosinophils # (A) 0.55 X 10*3/uL (0.04-0.35); Eosinophils % (A) 7.5 %; HCT 44.2 % (39.6-50.0); HGB 13.1 g/dL (13.0-17.0); Lymphocytes % (A) 16.3 %; MCH 24.7 pg (27.0-32.0); MCHC 29.6 g/dL (32.0-37.0); MCV 83.2 FL (80.0-97.0); Mean Platelet Volume 11.9 FL (9.5-12.2); Monocytes # (A) 0.71 X 10*3/uL (0.20-1.00); Monocytes % (A) 9.7 %; NRBC Per 100 WBC 0 X 10*3/uL (0.00-0.01); Neutrophils % (A) 65.3 %; Platelet Count 263 X 10*3/uL (140-440); RBC 5.31 X 10*6/uL (4.40-5.60); RDW 18.8 % (11.5-14.5); WBC 7.35 X 10*3/uL (4.50-10.00)
--- NOTE | 2023-11-20 08:20 | P.CONS ---
History of Present Illness - Reason for Consult Consult date: 11/19/23 - History of Present Illness Patient is a 63-year-old male with a past medical history significant for MS and this patient who did have a bedbound state skilled nursing resident also with a history of seizure disorder hypertension reflux and DVT patient did have a chronic indwelling Stein catheter for retention patient was sent to the ER for evaluation of mental status changes from the local skilled nursing apparently symptoms started started the day of presentation to the hospital on arrival to the ER patient was afebrile patient was nontachycardic hypertensive or hypoxic and no need for supplemental oxygen no clear history of any nausea vomiting choking on the food or any diarrhea patient did have a white count of 7.9 creatinine was 0.75 electrolytes normal liver enzymes are normal patient did have a positive UA with large leukocyte Estrace more than 182 WBC urine testing was negative influenza RSV COVID testing was negative, chest x-ray cardiomegaly mild pulmonary vascular congestion patient was admitted to the hospital infectious disease was consulted for further management of antibiotic therapy mo st information has been obtained from review of the chart talking to nursing staff as the patient cannot provide any medical history Past Medical History Past Medical History: Deep Vein Thrombosis (DVT), GERD/Reflux, Hypertension, Musculoskeletal Disorder, Neurologic Disorder, Pneumonia, Seizure Disorder, Skin Disorder Additional Past Medical History / Comment(s): Pt diagnosed with MS at the age of 39 yrs, seizure/pneumonia/UTI with sepsis/respirtory failure/vented, cognitive impairment, sister states when he is feeling well he could speak a few words/nod head appropriately/give thumbs up/roll eyes but when ill is nonverbal, pt has dysphagia/NPO with peg tube, contractures, last seizure 07/2020, trigeminal neuralgia, dysarthria/anarthria/neurogenic bladder with IDC-UTIs/sepsis, multiple pneumonias, recent seizure-last one 07/03/20, incontinent of stool, pt has had decubitus ulcer coccyx-sister unsure of skin condition at this time, past anemia r/t heparin/epistaxiis which involved nasal packing/transfusions, DVT bilateral arms, hypoxia, oxygen at 2L/NC, L femoral head fracture History of Any Multi-Drug Resistant Organisms: ESBL, MRSA, Other MDRO Year Discovered:: 03/09/21-MRSA; 11/23/19 ESBL-E.coli MDRO Source:: Abdomen-Peg site MRSA; Urine -ESBL Past Surgical History: Tonsillectomy Additional Past Surgical History / Comment(s): Gastrostomy, peg tube, I&D coccyx decubitius, bronchoscopy, bilateral lasik eye surgery. Past Anesthesia/Blood Transfusion Reactions: No Reported Reaction Additional Past Anesthesia/Blood Transfusion Reaction / Comm: Pt has received blood in past without reaction. Past Psychological History: Depression Additional Psychological History / Comment(s): Pt resides at [facility]. He normally is in bed/amita lift to wheelchair. Has peg/IDC Smoking Status: Never smoker Past Alcohol Use History: None Reported Past Drug Use History: None Reported - Past Family History Father Family Medical History: Myocardial Infarction (ID) Mother Family Medical History: Hypertension, Myocardial Infarction (ID) Additional Family Medical History / Comment(s): Mother of a ID at the age of 73 yrs. Medications and Allergies Home Medications Medication Instructions Recorded Confirmed Type Aspirin 81 mg PEG/G-TUBE DAILY 11/27/20 11/18/23 History Acetaminophen Tab [Tylenol] 650 mg PEG/G-TUBE Q4H PRN 06/13/21 11/18/23 History Metoprolol Tartrate [Lopressor] 50 mg PEG/G-TUBE BID 06/13/21 11/18/23 History carBAMazepine [carBAMazepine Oral 100 mg PEG/G-TUBE TID 07/02/21 11/18/23 History Susp] Amantadine Hcl Solution 50mg/5ml 100 mg PEG/G-TUBE DAILY 12/22/21 11/18/23 History Lactulose 20 gm PEG/G-TUBE TID 01/03/22 11/18/23 History Scopolamine [Scopolamine 1 MG/72 2 patch TRANSDERM Q72H 01/03/22 11/18/23 H istory HR patch] oxyBUTYnin chloride 5 mg PEG/G-TUBE Q8H 12/19/22 11/18/23 History Atorvastatin [Lipitor] 40 mg PEG/G-TUBE HS 07/14/23 11/18/23 History Famotidine [Pepcid] 20 mg PEG/G-TUBE DAILY 07/14/23 11/18/23 History bisacodyL [Dulcolax] 10 mg RECTAL DAILY suppositor 09/26/23 11/18/23 Rx polyethylene glycoL 3350 [Miralax] 17 gm PEG/G-TUBE HS 10/17/23 11/18/23 History Baclofen [Lioresal] 5 mg PEG/G-TUBE TID 11/18/23 11/18/23 History Ipratropium-Albuterol Nebulize 3 ml INHALATION RT-Q8H 11/18/23 11/18/23 History [Duoneb 0.5 mg-3 mg/3 ml Soln] Lacosamide [Vimpat Oral Soln] 150 mg PEG/G-TUBE Q12H 11/18/23 11/18/23 History lisinopriL [Zestril] 2.5 mg PEG/G-TUBE DAILY 11/18/23 11/18/23 History Allergies Allergy/AdvReac Type Severity Reaction Status Date / Time meropenem [From Merrem] Allergy Rash/Hives Verified 11/18/23 17:23 ceftolozane [From Zerbaxa] AdvReac Rapid Verified 11/18/23 17:23 Heart Rate tazobactam [From Zerbaxa] AdvReac Rapid Verified 11/18/23 17:23 Heart Rate Physical Exam Vitals: Vital Signs Temp Pulse Pulse Resp BP BP Pulse Ox 11/19/23 08:13 84 11/19/23 08:05 83 11/19/23 07:51 98.1 F 83 18 121/71 99 11/19/23 03:00 97.5 F L 72 20 125/73 99 11/19/23 02:32 98.9 F 97 20 135/87 97 11/19/23 00:13 75 18 106/79 98 11/18/23 23:00 69 22 142/84 98 11/18/23 22:00 75 18 127/79 99 11/18/23 21:00 73 20 142/82 98 11/18/23 20:00 70 20 155/99 98 11/18/23 18:57 72 18 153/84 100 11/18/23 15:13 98.8 F 94 18 111/73 95 Intake and Output 11/18/23 11/19/23 11/19/23 22:59 06:59 14:59 Intake Total 220 Output Total 2100 Balance -1880 Intake: Oral 220 Output: Urine 2100 Other: # Bowel Movements 1 Weight 106.594 kg Results CBC & Chem 7: 11/19/23 07:55 11/19/23 07:55 Labs: Abnormal Lab Results - Last 24 Hours (Table) 11/18/23 11/18/23 11/18/23 Range/Units 17:40 17:40 17:40 Hgb 12.7 L (13.0-17.5) gm/dL RDW 17.9 H (11.5-15.5) % Chloride 108 H (98-107) mmol/L BUN 24 H (9-20) mg/dL Albumin 3.3 L (3.5-5.0) g/dL Procalcitonin (0.02-0.09) ng/mL Urine Protein 1+ H (Negative) Ur Leukocyte Esterase Large H (Negative) Urine RBC 16 H (0-5) /hpf Urine WBC >182 H (0-5) /hpf Urine WBC Clumps Many H (None) /hpf Triple Phos Crystals Few H (None) /hpf Urine Bacteria Few H (None) /hpf Urine Mucus Moderate H (None) /hpf 11/18/23 Range/Units 17:40 Hgb (13.0-17.5) gm/dL RDW (11.5-15.5) % Chloride (98-107) mmol/L BUN (9-20) mg/dL Albumin (3.5-5.0) g/dL Procalcitonin 0.12 H (0.02-0.09) ng/mL Urine Protein (Negative) Ur Leukocyte Esterase (Negative) Urine RBC (0-5) /hpf Urine WBC (0-5) /hpf Urine WBC Clumps (None) /hpf Triple Phos Crystals (None) /hpf Urine Bacteria (None) /hpf Urine Mucus (None) /hpf Assessment and Plan Plan: 1patient presented to the hospital with mental status changes in this patient who do have a history of MS bedbound, urinary retention requiring chronic indwelling catheter positive UA suspicious for symptomatic catheter associated urinary tract infection 2-patient with multiple antibiotic ALLERGIES that would limit the number of antibiotic safe to use 3-change the Stein catheter obtain urine culture from the new Stein 4-we will start the patient on Invanz 1 g daily while waiting for the culture to finalize We will follow on clinical condition and cultures to further adjust medication if needed Thank you for this consultation we will follow the patient along with you Dictation was produced using [employer] dictation software. please excuse any grammatical, word or spelling errors. Time with Patient: Greater than 30
--- NOTE | 2023-11-20 21:59 | P.PN ---
Subjective Progress Note Date: 11/20/23 Principal diagnosis: Reason for follow-up is catheter associated UTI Patient is a 63-year-old male with a past medical history significant for MS and this patient who did have a bedbound state residential resident also with a history of seizure disorder hypertension reflux and DVT patient did have a chronic indwelling Stein catheter for retention patient was sent to the ER for evaluation of mental status changes, the patient had a positive UA concerning for catheter associated UTI. On today's evaluation that is 11/20/2023, the patient continues to be afebrile, the patient is on room air and breathing comfortably, The patient seem to be more awake and alert however he is nonverbal and cannot provide any history no vomiting or diarrhea has been reported by the nursing staff. Patient did not have any labs today repeat UA is positive after change of his catheter and cultures are pending Objective - Vital Signs Vital signs: Vital Signs Temp 99.0 F 11/20/23 07:33 Pulse 74 11/20/23 10:12 Resp 19 11/20/23 07:33 BP 141/64 11/20/23 07:33 Pulse Ox 93 L 11/20/23 07:33 FiO2 Intake & Output 11/19/23 11/20/23 11/20/23 18:59 06:59 18:59 Output Total 300 Balance -300 Weight 88.5 kg 81.5 kg Output: Urine 300 Other: Voiding Method Indwelling Catheter # Bowel Movements 1 - Exam GENERAL DESCRIPTION: A middle-age male lying in bed in no distress RESPIRATORY SYSTEM: Unlabored breathing , decreased breath sounds at bases HEART: S1 S2 regular rate and rhythm , ABDOMEN: Soft , no tenderness EXTREMITIES: No edema feet - Labs CBC & Chem 7: 11/19/23 07:55 11/19/23 07:55 Labs: Abnormal Lab Results - Last 24 Hours (Table) 11/19/23 11/19/23 Range/Units 07:55 16:30 MCH 24.7 L (27.0-32.0) pg MCHC 29.6 L (32.0-37.0) g/dL RDW 18.8 H (11.5-14.5) % Immature Gran # 0.05 H (0.00-0.04) X 10*3/uL Eosinophils # 0.55 H (0.04-0.35) X 10*3/uL Urine Protein 1+ H (Negative) Urine Blood Trace H (Negative) Ur Leukocyte Esterase Large H (Negative) Urine RBC 12 H (0-5) /hpf Urine WBC >182 H (0-5) /hpf Urine WBC Clumps Few H (None) /hpf Urine Bacteria Rare H (None) /hpf Urine Mucus Rare H (None) /hpf Microbiology - Last 24 Hours (Table) 11/18/23 17:45 Blood Culture - Preliminary Blood 11/18/23 17:30 Blood Culture - Preliminary Blood Assessment and Plan (1) Allergy to multiple antibiotics Current Visit: No Status: Acute Code(s): Z88.1 - ALLERGY STATUS TO OTHER ANTIBIOTIC AGENTS SNOMED Code(s): 297462450 (2) Catheter-associated urinary tract infection Current Visit: No Status: Acute Code(s): T83.511A - I/I REACT D/T INDWELLING URETHRAL CATHETER, INIT; N39.0 - URINARY TRACT INFECTION, SITE NOT SPECIFIED SNOMED Code(s): 803376055 Plan: 1patient presented to the hospital with mental status changes in this patient who do have a history of MS bedbound, urinary retention requiring chronic indwelling catheter positive UA suspicious for symptomatic catheter associated urinary tract infection 2-patient with multiple antibiotic ALLERGIES that would limit the number of antibiotic safe to use 3-patient Stein catheter has been changed UA still positive after change of his Stein catheter 4-patient to continue with Invanz 1 g daily while waiting for the culture to finalize Dictation was produced using [employer] dictation software. please excuse any grammatical, word or spelling errors. Time with Patient: Less than 30
[2023-11-20] MEDS: Lacosamide IV (ages 17+ yrs) 200 MG/20 ML ML IVP SCH (23:44)
--- NOTE | 2023-11-21 09:11 | P.PN ---
Subjective Progress Note Date: 11/20/23 Patient is a 63-year-old male with a past medical history of hypertension, multiple sclerosis, seizure disorder, dementia, chronic indwelling Stein catheter ,multiple urinary tract infection, dysphagia on PEG tube, neurogenic bladder. Patient is awake and alert x1 but nonverbal at baseline. Patient is a resident of a senior living facility was brought to the ER for increasing lethargy and confusion. Nursing staff reported the patient was more lethargic, there was no complaint of fever or chills. No current nausea or vomiting..Initial lab work done in the ER showed WBC 7.9, hemoglobin 12.7, platelet count 230, sodium 141, potassium 3.9, BUN 24, creatinine 0.75, troponin 0.025, UA done showed nitrite negative, large amount of leukocyte Estrace, urine WBC more than 182 Urine tox screen negative EKG done in the ER showed heart rate of 71, no ST segment elevation or depression seen, no T-wave inversions seen. Chest x-ray done in the ER showed cardiomegaly and mild pulmonary vascular congestion. Patient admitted to internal medicine service 11/20/2023 Patient is lying in the bed. Awake alert but oriented 0. Patient is able to open his eyes but does not follow any commands. Current on antibiotics for urinary tract infection. Repeat urinalysis showed large leukocyte esterase with RBCs following greater than 182 WBCs. Patient does have chronic indwelling catheter. Tolerating tube feeding. Patient has been afebrile. No episodes of nausea vomiting. She was noted in the past event. REVIEW OF SYSTEMS: Review of system cannot be obtained as patient is nonverbal at baseline PHYSICAL EXAMINATION: GENERAL: The patient is alert alert to self, patient is chronically ill-looking HEENT: Pupils are round and equally reacting to light. EOMI. No scleral icterus. No conjunctival pallor. Normocephalic, atraumatic. No pharyngeal erythema. No thyromegaly. CARDIOVASCULAR: S1 and S2 present. No murmurs, rubs, or gallops. PULMONARY: Chest is clear to auscultation, no wheezing or crackles. ABDOMEN: Soft, nontender, nondistended, normoactive bowel sounds. No palpable organomegaly. PEG tube seen MUSCULOSKELETAL: No joint swelling or deformity. EXTREMITIES: No cyanosis, clubbing, or pedal edema. NEUROLOGICAL:awake, alert x1. Nonverbal. Patient is bedbound. SKIN: No rashes. Assessment and plan Acute metabolic encephalopathy. Improved to baseline. Acute UTI. Patient does have chronic indwelling Stein catheter. ALLERGIES to multiple medications. Neurogenic bladder and history of multiple urinary tract infections Multiple sclerosis at age 39. Currently patient is bedbound Seizure disorder Cognitive impairment Hypertension GERD History of DVT Dysphagia/n.p.o. on PEG tube feeding History of trigeminal neuralgia History of ESBL E. coli urinary tract infections Depression Monitor vital signs Monitor CBC Monitor CMP fall precautions Continue tube feeding Continue aspirin, Lipitor Continue carbamazepine, lacosamide, amantadine Resume tube feeding ID is on board. Patient is being continued on Invanz 1 g daily. Repeat urinalysis is positive. Follow final culture report. Labs and medication were reviewed... Resume home medication. Monitor labs and vitals. DVT and GI prophylaxis. Dictation was produced using [employer] dictation software. please excuse any grammatical, word or spelling errors. Objective - Vital Signs Vital signs: Vital Signs Temp 99.0 F 11/20/23 07:33 Pulse 74 11/20/23 10:12 Resp 19 11/20/23 07:33 BP 141/64 11/20/23 07:33 Pulse Ox 93 L 11/20/23 07:33 FiO2 Intake & Output 11/19/23 11/20/23 11/20/23 18:59 06:59 18:59 Output Total 300 Balance -300 Weight 88.5 kg 81.5 kg Output: Urine 300 Other: # Bowel Movements 1 - Labs CBC & Chem 7: 11/19/23 07:55 11/19/23 07:55 Labs: Abnormal Lab Results - Last 24 Hours (Table) 11/19/23 11/19/23 Range/Units 07:55 16:30 MCH 24.7 L (27.0-32.0) pg MCHC 29.6 L (32.0-37.0) g/dL RDW 18.8 H (11.5-14.5) % Immature Gran # 0.05 H (0.00-0.04) X 10*3/uL Eosinophils # 0.55 H (0.04-0.35) X 10*3/uL Urine Protein 1+ H (Negative) Urine Blood Trace H (Negative) Ur Leukocyte Esterase Large H (Negative) Urine RBC 12 H (0-5) /hpf Urine WBC >182 H (0-5) /hpf Urine WBC Clumps Few H (None) /hpf Urine Bacteria Rare H (None) /hpf Urine Mucus Rare H (None) /hpf Microbiology - Last 24 Hours (Table) 11/18/23 17:45 Blood Culture - Preliminary Blood 11/18/23 17:30 Blood Culture - Preliminary Blood
[2023-11-21 09:30] LABS: Anisocytosis Slight; Basophils % (A) 0 %; Eosinophils # (A) 0.5 k/uL (0-0.7); Eosinophils % (A) 6 %; HCT 40.8 % (39.0-53.0); HGB 12.9 gm/dL (13.0-17.5); Hypochromasia Slight; Lymphocytes % (A) 13 %; MCH 25.6 pg (25.0-35.0); MCHC 31.7 g/dL (31.0-37.0); MCV 80.7 fL (80.0-100.0); Mean Platelet Volume 9.4; Microcytosis Slight; Monocytes # (A) 0.7 k/uL (0-1.0); Monocytes % (A) 9 %; Neutrophils # (A) 5.1 k/uL (1.3-7.7); Neutrophils % (A) 70 %; Platelet Count 244 k/uL (150-450); RBC 5.05 m/uL (4.30-5.90); RDW 17.3 % (11.5-15.5); WBC 7.3 k/uL (3.8-10.6)
[2023-11-21 10:23] LABS: African American GFR (CKD) >90 (>60 ml/min/1.73 sqM); Anion Gap 9 mmol/L; Blood Urea Nitrogen 17 mg/dL (9-20); Calcium 8.8 mg/dL (8.4-10.2); Carbon Dioxide 24 mmol/L (22-30); Chloride 113 mmol/L (98-107); Glucose 111 mg/dL (74-99); Non-African American GFR(CKD) >90 (>60 ml/min/1.73 sqM); Potassium 4.3 mmol/L (3.5-5.1); Sodium 146 mmol/L (137-145)
--- NOTE | 2023-11-21 12:17 | P.PN ---
Subjective Progress Note Date: 11/21/23 Principal diagnosis: Reason for follow-up is catheter associated UTI Patient is a 63-year-old male with a past medical history significant for MS and this patient who did have a bedbound state retirement resident also with a history of seizure disorder hypertension reflux and DVT patient did have a chronic indwelling Stein catheter for retention patient was sent to the ER for evaluation of mental status changes, the patient had a positive UA concerning for catheter associated UTI. On today's evaluation that is 11/21/2023, Patient is afebrile patient is currently on room air and seems to be breathing comfortably in no distress no vomiting or diarrhea has been reported patient cannot provide any history. Patient white count is 7.3, creatinine 0.71 cultures currently pending Objective - Vital Signs Vital signs: Vital Signs Temp 98.9 F 11/21/23 07:20 Pulse 80 11/21/23 09:46 Resp 18 11/21/23 09:46 BP 148/87 11/21/23 07:20 Pulse Ox 99 11/21/23 07:20 FiO2 Intake & Output 11/20/23 11/21/23 11/21/23 18:59 06:59 18:59 Output Total 550 350 Balance -550 -350 Weight 86.5 kg Output: Urine 550 350 Other: Voiding Method Indwelling Catheter Indwelling Catheter # Bowel Movements 2 1 - Exam GENERAL DESCRIPTION: A middle-age male lying in bed in no distress RESPIRATORY SYSTEM: Unlabored breathing , decreased breath sounds at bases HEART: S1 S2 regular rate and rhythm , ABDOMEN: Soft , no tenderness EXTREMITIES: No edema feet - Labs CBC & Chem 7: 11/21/23 08:36 11/21/23 08:36 Labs: Abnormal Lab Results - Last 24 Hours (Table) 11/21/23 Range/Units 08:36 Hgb 12.9 L (13.0-17.5) gm/dL RDW 17.3 H (11.5-15.5) % Microbiology - Last 24 Hours (Table) 11/18/23 17:45 Blood Culture - Preliminary Blood 11/18/23 17:30 Blood Culture - Preliminary Blood Assessment and Plan (1) Allergy to multiple antibiotics Current Visit: No Status: Acute Code(s): Z88.1 - ALLERGY STATUS TO OTHER ANTIBIOTIC AGENTS SNOMED Code(s): 717116874 (2) Catheter-associated urinary tract infection Current Visit: No Status: Acute Code(s): T83.511A - I/I REACT D/T INDWELLING URETHRAL CATHETER, INIT; N39.0 - URINARY TRACT INFECTION, SITE NOT SPECIFIED SNOMED Code(s): 429786777 Plan: 1patient presented to the hospital with mental status changes in this patient who do have a history of MS bedbound, urinary retention requiring chronic indwelling catheter positive UA suspicious for symptomatic catheter associated urinary tract infection 2-patient with multiple antibiotic ALLERGIES that would limit the number of antibiotic safe to use 3-patient Stein catheter has been changed UA still positive after change of his Stein catheter, cultures are currently pending 4-patient to continue with Invanz 1 g daily while waiting for the culture to finalize and monitor clinical course closely Dictation was produced using [employer] dictation software. please excuse any grammatical, word or spelling errors. Time with Patient: Less than 30
[2023-11-21] MEDS: DEXTROSE 5% IN WATER 1,000 ML IV ONE (22:42)
[2023-11-22 06:22] LABS: Glucose,Whole Blood 132 mg/dL (70-110)
[2023-11-22 10:54] LABS: Basophils # (A) 0.03 X 10*3/uL (0.00-0.10); Basophils % (A) 0.5 %; Eosinophils # (A) 0.46 X 10*3/uL (0.04-0.35); Eosinophils % (A) 7.3 %; HCT 40.2 % (39.6-50.0); HGB 12.1 g/dL (13.0-17.0); Lymphocytes # (A) 0.91 X 10*3/uL (0.90-5.00); Lymphocytes % (A) 14.4 %; MCHC 30.1 g/dL (32.0-37.0); MCV 83.1 FL (80.0-97.0); Mean Platelet Volume 10.9 FL (9.5-12.2); Monocytes # (A) 0.61 X 10*3/uL (0.20-1.00); Monocytes % (A) 9.7 %; NRBC Per 100 WBC 0 X 10*3/uL (0.00-0.01); Neutrophils # (A) 4.27 X 10*3/uL (1.80-7.70); Neutrophils % (A) 67.8 %; Platelet Count 285 X 10*3/uL (140-440); RBC 4.84 X 10*6/uL (4.40-5.60); RDW 17.9 % (11.5-14.5)
[2023-11-22 10:58] LABS: BUN/Creat Ratio 20.43 Ratio (12.00-20.00); Blood Urea Nitrogen 14.3 mg/dL (9.0-27.0); Calcium 8.4 mg/dL (8.7-10.3); Chloride 110 mmol/L (96-109); Glucose 138 mg/dL (70-110); Potassium 4.4 mmol/L (3.5-5.5); Sodium 144 mmol/L (135-145)
[2023-11-22 13:26] LABS: Glucose,Whole Blood 122 mg/dL (70-110)
--- NOTE | 2023-11-22 14:40 | P.PN ---
Subjective Progress Note Date: 11/22/23 Principal diagnosis: Reason for follow-up is catheter associated UTI Patient is a 63-year-old male with a past medical history significant for MS and this patient who did have a bedbound state correction resident also with a history of seizure disorder hypertension reflux and DVT patient did have a chronic indwelling Stein catheter for retention patient was sent to the ER for evaluation of mental status changes, the patient had a positive UA concerning for catheter associated UTI. On today's evaluation that is 11/22/2023,the patient remains to be afebrile patient is breathing comfortably on room air and in no distress no vomiting diarrhea or any other changes reported by the nursing staff patient cannot provide any history. Patient did have a white count of 6.30, creatinine 0.7 blood cultures pending urine cultures pending Objective - Vital Signs Vital signs: Vital Signs Temp 98.3 F 11/22/23 13:45 Pulse 86 11/22/23 13:45 Resp 21 11/22/23 13:45 BP 131/74 11/22/23 13:45 Pulse Ox 93 L 11/22/23 13:45 FiO2 Intake & Output 11/21/23 11/22/23 11/22/23 18:59 06:59 18:59 Intake Total 400 Output Total 345 350 Balance 55 -350 Weight 86.5 kg 84.5 kg Intake: Tube Feeding 400 Output: Urine 345 350 Other: Voiding Method Indwelling Catheter Indwelling Catheter # Bowel Movements 1 - Exam GENERAL DESCRIPTION: A middle-age male lying in bed in no distress RESPIRATORY SYSTEM: Unlabored breathing , decreased breath sounds at bases HEART: S1 S2 regular rate and rhythm , ABDOMEN: Soft , no tenderness EXTREMITIES: No edema feet - Labs CBC & Chem 7: 11/22/23 08:08 11/22/23 08:08 Labs: Abnormal Lab Results - Last 24 Hours (Table) 11/22/23 11/22/23 11/22/23 Range/Units 06:21 08:08 08:08 Hgb 12.1 L (13.0-17.0) g/dL MCH 25.0 L (27.0-32.0) pg MCHC 30.1 L (32.0-37.0) g/dL RDW 17.9 H (11.5-14.5) % Eosinophils # 0.46 H (0.04-0.35) X 10*3/uL Chloride 110 H (96-109) mmol/L BUN/Creatinine Ratio 20.43 H (12.00-20.00) Ratio Glucose 138 H (70-110) mg/dL POC Glucose (mg/dL) 132 H (70-110) mg/dL Calcium 8.4 L (8.7-10.3) mg/dL 11/22/23 Range/Units 13:25 Hgb (13.0-17.0) g/dL MCH (27.0-32.0) pg MCHC (32.0-37.0) g/dL RDW (11.5-14.5) % Eosinophils # (0.04-0.35) X 10*3/uL Chloride (96-109) mmol/L BUN/Creatinine Ratio (12.00-20.00) Ratio Glucose (70-110) mg/dL POC Glucose (mg/dL) 122 H (70-110) mg/dL Calcium (8.7-10.3) mg/dL Microbiology - Last 24 Hours (Table) 11/18/23 17:45 Blood Culture - Preliminary Blood 11/18/23 17:30 Blood Culture - Preliminary Blood Assessment and Plan (1) Allergy to multiple antibiotics Current Visit: No Status: Acute Code(s): Z88.1 - ALLERGY STATUS TO OTHER ANTIBIOTIC AGENTS SNOMED Code(s): 086437799 (2) Catheter-associated urinary tract infection Current Visit: No Status: Acute Code(s): T83.511A - I/I REACT D/T INDWELLING URETHRAL CATHETER, INIT; N39.0 - URINARY TRACT INFECTION, SITE NOT SPECIFIED SNOMED Code(s): 246417882 Plan: 1patient presented to the hospital with mental status changes in this patient who do have a history of MS bedbound, urinary retention requiring chronic indwelling catheter positive UA suspicious for symptomatic catheter associated urinary tract infection 2-patient with multiple antibiotic ALLERGIES that would limit the number of antibiotic safe to use 3-patient Stein catheter has been changed UA still positive after change of his Stein catheter, cultures are currently pending 4-patient is afebrile and white count is normal, to continue with Invanz 1 g daily while waiting for the culture to finalize Dictation was produced using [employer] software. please excuse any grammatical, word or spelling errors. Time with Patient: Less than 30
[2023-11-22 16:31] LABS: Glucose,Whole Blood 88 mg/dL (70-110)
[2023-11-22 21:40] LABS: Glucose,Whole Blood 99 mg/dL (70-110)
[2023-11-23 06:23] LABS: Glucose,Whole Blood 107 mg/dL (70-110)
--- NOTE | 2023-11-23 10:22 | P.PN ---
Subjective Progress Note Date: 11/21/23 Patient is a 63-year-old male with a past medical history of hypertension, multiple sclerosis, seizure disorder, dementia, chronic indwelling Stein catheter ,multiple urinary tract infection, dysphagia on PEG tube, neurogenic bladder. Patient is awake and alert x1 but nonverbal at baseline. Patient is a resident of a long-term facility was brought to the ER for increasing lethargy and confusion. Nursing staff reported the patient was more lethargic, there was no complaint of fever or chills. No current nausea or vomiting..Initial lab work done in the ER showed WBC 7.9, hemoglobin 12.7, platelet count 230, sodium 141, potassium 3.9, BUN 24, creatinine 0.75, troponin 0.025, UA done showed nitrite negative, large amount of leukocyte Estrace, urine WBC more than 182 Urine tox screen negative EKG done in the ER showed heart rate of 71, no ST segment elevation or depression seen, no T-wave inversions seen. Chest x-ray done in the ER showed cardiomegaly and mild pulmonary vascular congestion. Patient admitted to internal medicine service 11/20/2023 Patient is lying in the bed. Awake alert but oriented 0. Patient is able to open his eyes but does not follow any commands. Current on antibiotics for urinary tract infection. Repeat urinalysis showed large leukocyte esterase with RBCs following greater than 182 WBCs. Patient does have chronic indwelling catheter. Tolerating tube feeding. Patient has been afebrile. No episodes of nausea vomiting. She was noted in the past event. 11/21/2023 Patient is lying in the bed. Able to open his eyes. Awake alert but oriented 0 at baseline. Patient has been afebrile. Continued on IV antibiotics for urinary tract infection with ertapenem.. Repeat urine cultures pending. ID is on board. Laboratory data showed WBC 7.3 hemoglobin 12.9 and platelets 244 sodium 146 potassium 4.3 and chloride 113 REVIEW OF SYSTEMS: Review of system cannot be obtained as patient is nonverbal at baseline PHYSICAL EXAMINATION: GENERAL: The patient is alert alert to self, patient is chronically ill-looking HEENT: Pupils are round and equally reacting to light. EOMI. No scleral icterus. No conjunctival pallor. Normocephalic, atraumatic. No pharyngeal erythema. No thyromegaly. CARDIOVASCULAR: S1 and S2 present. No murmurs, rubs, or gallops. PULMONARY: Chest is clear to auscultation, no wheezing or crackles. ABDOMEN: Soft, nontender, nondistended, normoactive bowel sounds. No palpable organomegaly. PEG tube seen MUSCULOSKELETAL: No joint swelling or deformity. EXTREMITIES: No cyanosis, clubbing, or pedal edema. NEUROLOGICAL:awake, alert x1. Nonverbal. Patient is bedbound. SKIN: No rashes. Assessment and plan Acute metabolic encephalopathy. Improved to baseline. Acute UTI. Patient does have chronic indwelling Stein catheter. ALLERGIES to multiple medications. Neurogenic bladder and history of multiple urinary tract infections Multiple sclerosis at age 39. Currently patient is bedbound Seizure disorder Cognitive impairment Hypertension GERD History of DVT Dysphagia/n.p.o. on PEG tube feeding History of trigeminal neuralgia History of ESBL E. coli urinary tract infections Depression Monitor vital signs Monitor CBC Monitor CMP fall precautions Continue tube feeding Continue aspirin, Lipitor Continue carbamazepine, lacosamide, amantadine Resume tube feeding ID is on board. Patient is being continued on Invanz 1 g daily. Repeat urinalysis is positive. Follow final culture report pending currently. Labs and medication were reviewed... Resume home medication. Monitor labs and vitals. DVT and GI prophylaxis. Dictation was produced using [employer] dictation software. please excuse any grammatical, word or spelling errors. Objective - Vital Signs Vital signs: Vital Signs Temp 98.7 F 11/21/23 13:45 Pulse 80 11/21/23 13:45 Resp 19 11/21/23 13:45 BP 131/80 11/21/23 13:45 Pulse Ox 96 11/21/23 13:45 FiO2 Intake & Output 11/21/23 11/21/23 11/22/23 06:59 18:59 06:59 Intake Total 400 Output Total 350 345 Balance -350 55 Weight 86.5 kg 86.5 kg Intake: Tube Feeding 400 Output: Urine 350 345 Other: Voiding Method Indwelling Catheter # Bowel Movements 1 - Labs CBC & Chem 7: 11/22/23 08:08 11/22/23 08:08 Labs: Abnormal Lab Results - Last 24 Hours (Table) 11/21/23 11/21/23 Range/Units 08:36 08:36 Hgb 12.9 L (13.0-17.5) gm/dL RDW 17.3 H (11.5-15.5) % Sodium 146 H (137-145) mmol/L Chloride 113 H (98-107) mmol/L Glucose 111 H (74-99) mg/dL Microbiology - Last 24 Hours (Table) 11/18/23 17:45 Blood Culture - Preliminary Blood 11/18/23 17:30 Blood Culture - Preliminary Blood
--- NOTE | 2023-11-23 10:24 | P.PN ---
Subjective Progress Note Date: 11/22/23 Patient is a 63-year-old male with a past medical history of hypertension, multiple sclerosis, seizure disorder, dementia, chronic indwelling Stein catheter ,multiple urinary tract infection, dysphagia on PEG tube, neurogenic bladder. Patient is awake and alert x1 but nonverbal at baseline. Patient is a resident of a halfway facility was brought to the ER for increasing lethargy and confusion. Nursing staff reported the patient was more lethargic, there was no complaint of fever or chills. No current nausea or vomiting..Initial lab work done in the ER showed WBC 7.9, hemoglobin 12.7, platelet count 230, sodium 141, potassium 3.9, BUN 24, creatinine 0.75, troponin 0.025, UA done showed nitrite negative, large amount of leukocyte Estrace, urine WBC more than 182 Urine tox screen negative EKG done in the ER showed heart rate of 71, no ST segment elevation or depression seen, no T-wave inversions seen. Chest x-ray done in the ER showed cardiomegaly and mild pulmonary vascular congestion. Patient admitted to internal medicine service 11/20/2023 Patient is lying in the bed. Awake alert but oriented 0. Patient is able to open his eyes but does not follow any commands. Current on antibiotics for urinary tract infection. Repeat urinalysis showed large leukocyte esterase with RBCs following greater than 182 WBCs. Patient does have chronic indwelling catheter. Tolerating tube feeding. Patient has been afebrile. No episodes of nausea vomiting. She was noted in the past event. 11/21/2023 Patient is lying in the bed. Able to open his eyes. Awake alert but oriented 0 at baseline. Patient has been afebrile. Continued on IV antibiotics for urinary tract infection with ertapenem.. Repeat urine cultures pending. ID is on board. Laboratory data showed WBC 7.3 hemoglobin 12.9 and platelets 244 sodium 146 potassium 4.3 and chloride 113 11/22/2023 Patient is lying in the bed. Mentation is at baseline. Afebrile. Tolerating tube feeding. Patient does have ostomy output. Otherwise patient is being continued on IV antibiotics for urinary tract infection and with multiple ALLERGIES. Final culture report is pending ID is on board. Laboratory data showed WBC 6.3 hemoglobin 12.1 and platelets 285, BUN 14.3 and creatinine 0.7 and blood sugar 138. REVIEW OF SYSTEMS: Review of system cannot be obtained as patient is nonverbal at baseline PHYSICAL EXAMINATION: GENERAL: The patient is alert alert to self, patient is chronically ill-looking HEENT: Pupils are round and equally reacting to light. EOMI. No scleral icterus. No conjunctival pallor. Normocephalic, atraumatic. No pharyngeal erythema. No thyromegaly. CARDIOVASCULAR: S1 and S2 present. No murmurs, rubs, or gallops. PULMONARY: Chest is clear to auscultation, no wheezing or crackles. ABDOMEN: Soft, nontender, nondistended, normoactive bowel sounds. No palpable organomegaly. PEG tube seen MUSCULOSKELETAL: No joint swelling or deformity. EXTREMITIES: No cyanosis, clubbing, or pedal edema. NEUROLOGICAL:awake, alert x1. Nonverbal. Patient is bedbound. SKIN: No rashes. Assessment and plan Acute metabolic encephalopathy. Improved to baseline. Acute UTI. Patient does have chronic indwelling Stein catheter. ALLERGIES to multiple medications. Neurogenic bladder and history of multiple urinary tract infections Multiple sclerosis at age 39. Currently patient is bedbound Seizure disorder Cognitive impairment Hypertension GERD History of DVT Dysphagia/n.p.o. on PEG tube feeding History of trigeminal neuralgia History of ESBL E. coli urinary tract infections Depression Monitor vital signs Monitor CBC Monitor CMP fall precautions Continue tube feeding Continue aspirin, Lipitor Continue carbamazepine, lacosamide, amantadine Resume tube feeding ID is on board. Patient is being continued on Invanz 1 g daily. Repeat urinalysis is positive. Follow final culture report pending currently. Labs and medication were reviewed... Resume home medication. Monitor labs and vitals. DVT and GI prophylaxis. Dictation was produced using [employer] dictation software. please excuse any grammatical, word or spelling errors. Objective - Vital Signs Vital signs: Vital Signs Temp 98.3 F 11/22/23 13:45 Pulse 86 11/22/23 13:45 Resp 21 11/22/23 13:45 BP 131/74 11/22/23 13:45 Pulse Ox 93 L 11/22/23 13:45 FiO2 Intake & Output 11/22/23 11/22/23 11/23/23 06:59 18:59 06:59 Output Total 350 325 Balance -350 -325 Weight 84.5 kg Output: Urine 350 325 Other: Voiding Method Indwelling Catheter Indwelling Catheter # Bowel Movements 2 - Labs CBC & Chem 7: 11/22/23 08:08 11/22/23 08:08 Labs: Abnormal Lab Results - Last 24 Hours (Table) 11/22/23 11/22/23 11/22/23 Range/Units 06:21 08:08 08:08 Hgb 12.1 L (13.0-17.0) g/dL MCH 25.0 L (27.0-32.0) pg MCHC 30.1 L (32.0-37.0) g/dL RDW 17.9 H (11.5-14.5) % Eosinophils # 0.46 H (0.04-0.35) X 10*3/uL Chloride 110 H (96-109) mmol/L BUN/Creatinine Ratio 20.43 H (12.00-20.00) Ratio Glucose 138 H (70-110) mg/dL POC Glucose (mg/dL) 132 H (70-110) mg/dL Calcium 8.4 L (8.7-10.3) mg/dL 11/22/23 Range/Units 13:25 Hgb (13.0-17.0) g/dL MCH (27.0-32.0) pg MCHC (32.0-37.0) g/dL RDW (11.5-14.5) % Eosinophils # (0.04-0.35) X 10*3/uL Chloride (96-109) mmol/L BUN/Creatinine Ratio (12.00-20.00) Ratio Glucose (70-110) mg/dL POC Glucose (mg/dL) 122 H (70-110) mg/dL Calcium (8.7-10.3) mg/dL Microbiology - Last 24 Hours (Table) 11/18/23 17:45 Blood Culture - Preliminary Blood 11/18/23 17:30 Blood Culture - Preliminary Blood
[2023-11-23 11:44] LABS: Glucose,Whole Blood 106 mg/dL (70-110)
[2023-11-23 12:38] VITALS: BMI 26.7
--- NOTE | 2023-11-23 12:55 | P.PN ---
Subjective Progress Note Date: 11/23/23 Principal diagnosis: Reason for follow-up is catheter associated UTI Patient is a 63-year-old male with a past medical history significant for MS and this patient who did have a bedbound state retirement resident also with a history of seizure disorder hypertension reflux and DVT patient did have a chronic indwelling Stein catheter for retention patient was sent to the ER for evaluation of mental status changes, the patient had a positive UA concerning for catheter associated UTI. On today's evaluation that is 11/23/2023,the patient remains to be afebrile, patient is on room air not requiring supplemental oxygen, no discomfort was noted no vomiting diarrhea or any other changes reported by nursing staff patient cannot provide any history. Labs no new labs has been obtained today- white count was 6.3 so as of yesterday blood and urine cultures have been ne gative so far Objective - Vital Signs Vital signs: Vital Signs Temp 98.3 F 11/23/23 07:01 Pulse 82 11/23/23 08:13 Resp 21 11/23/23 07:01 BP 137/86 11/23/23 07:01 Pulse Ox 88 L 11/23/23 07:01 FiO2 Intake & Output 11/22/23 11/23/23 11/23/23 18:59 06:59 18:59 Output Total 325 550 Balance -325 -550 Weight 84.5 kg Output: Urine 325 550 Other: Voiding Method Indwelling Catheter Indwelling Catheter # Bowel Movements 2 1 1 - Exam GENERAL DESCRIPTION: A middle-age male lying in bed in no distress RESPIRATORY SYSTEM: Unlabored breathing , decreased breath sounds at bases HEART: S1 S2 regular rate and rhythm , ABDOMEN: Soft , no tenderness EXTREMITIES: No edema feet - Labs CBC & Chem 7: 11/22/23 08:08 11/22/23 08:08 Labs: Abnormal Lab Results - Last 24 Hours (Table) 11/22/23 Range/Units 13:25 POC Glucose (mg/dL) 122 H (70-110) mg/dL Microbiology - Last 24 Hours (Table) 11/21/23 16:11 Urine Culture - Final Urine,Catheterized Assessment and Plan (1) Allergy to multiple antibiotics Current Visit: No Status: Acute Code(s): Z88.1 - ALLERGY STATUS TO OTHER ANTIBIOTIC AGENTS SNOMED Code(s): 112078193 (2) Catheter-associated urinary tract infection Current Visit: No Status: Acute Code(s): T83.511A - I/I REACT D/T INDWELLING URETHRAL CATHETER, INIT; N39.0 - URINARY TRACT INFECTION, SITE NOT SPECIFIED SNOMED Code(s): 656411737 Plan: 1patient presented to the hospital with mental status changes in this patient who do have a history of MS bedbound, urinary retention requiring chronic indwelling catheter positive UA suspicious for symptomatic catheter associated urinary tract infection 2-patient with multiple antibiotic ALLERGIES that would limit the number of antibiotic safe to use 3-patient Stein catheter has been changed UA still positive after change of his Stein catheter, cultures are so far negative 4-patient is afebrile and white count is normal, with a culture negative antibiotics can be safely discontinued no recommending antibiotic on discharge to continue with Invanz 1 g daily while inpatient Dictation was produced using [employer] dictation software. please excuse any grammatical, word or spelling errors. Time with Patient: Less than 30
[2023-11-23 13:38] LABS: African American GFR (CKD) >90 (>60 ml/min/1.73 sqM); Anion Gap 9 mmol/L; Blood Urea Nitrogen 18 mg/dL (9-20); Calcium 8.5 mg/dL (8.4-10.2); Carbon Dioxide 23 mmol/L (22-30); Chloride 111 mmol/L (98-107); Glucose 108 mg/dL (74-99); Non-African American GFR(CKD) >90 (>60 ml/min/1.73 sqM); Potassium 4.7 mmol/L (3.5-5.1); Sodium 143 mmol/L (137-145)
--- NOTE | 2023-11-23 14:51 | P.DS ---
Providers Date of admission: 11/21/23 10:29 Expected date of discharge: 11/23/23 Attending physician: Dara Crowe Consults: 11/18/23 19:44 Consult Physician Urgent Consulting Provider: Sonal Farah Consult Reason/Comments: abn ua Do you want consulting provider notified?: Yes Primary care physician: Stated None Hospital Course: Discharge diagnosis Acute metabolic encephalopathy. Improved to baseline. Acute UTI. Patient does have chronic indwelling Stein catheter. ALLERGIES to multiple medications. Urine culture negative so far. Neurogenic bladder and history of multiple urinary tract infections Multiple sclerosis at age 39. Currently patient is bedbound Seizure disorder Cognitive impairment Hypertension GERD History of DVT Dysphagia/n.p.o. on PEG tube feeding History of trigeminal neuralgia History of ESBL E. coli urinary tract infections Depression Hospital course Patient is a 63-year-old male with a past medical history of hypertension, multiple sclerosis, seizure disorder, dementia, chronic indwelling Stein catheter ,multiple urinary tract infection, dysphagia on PEG tube, neurogenic bladder. Patient is awake and alert x1 but nonverbal at baseline. Patient is a resident of a alf facility was brought to the ER for increasing lethargy and confusion. Nursing staff reported the patient was more lethargic, there was no complaint of fever or chills. No current nausea or vomiting..Initial lab work done in the ER showed WBC 7.9, hemoglobin 12.7, platelet count 230, sodium 141, potassium 3.9, BUN 24, creatinine 0.75, troponin 0.025, UA done showed nitrite negative, large amount of leukocyte Estrace, urine WBC more than 182 Urine tox screen negative EKG done in the ER showed heart rate of 71, no ST segment elevation or depression seen, no T-wave inversions seen. Chest x-ray done in the ER showed cardiomegaly and mild pulmonary vascular congestion. Patient admitted to internal medicine service 11/20/2023 Patient is lying in the bed. Awake alert but oriented 0. Patient is able to open his eyes but does not follow any commands. Current on antibiotics for urinary tract infection. Repeat urinalysis showed large leukocyte esterase with RBCs following greater than 182 WBCs. Patient does have chronic indwelling catheter. Tolerating tube feeding. Patient has been afebrile. No episodes of nausea vomiting. She was noted in the past event. 11/21/2023 Patient is lying in the bed. Able to open his eyes. Awake alert but oriented 0 at baseline. Patient has been afebrile. Continued on IV antibiotics for urinary tract infection with ertapenem.. Repeat urine cultures pending. ID is on board. Laboratory data showed WBC 7.3 hemoglobin 12.9 and platelets 244 sodium 146 potassium 4.3 and chloride 113 11/22/2023 Patient is lying in the bed. Mentation is at baseline. Afebrile. Tolerating tube feeding. Patient does have ostomy output. Otherwise patient is being continued on IV antibiotics for urinary tract infection and with multiple ALLERGIES. Final culture report is pending ID is on board. Laboratory data showed WBC 6.3 hemoglobin 12.1 and platelets 285, BUN 14.3 and creatinine 0.7 and blood sugar 138. 11/23/2023 Patient is resting in the bed. Able to open his eyes and nonverbal at baseline. No fever no chills. No nausea or vomiting. Does have ostomy output. Repeat urine cultures negative so far. ID recommends no antibiotics at discharge. Patient is hemodynamically stable. Tolerating tube feeding. Patient is being transferred back to [facility] today. PHYSICAL EXAMINATION: GENERAL: The patient is alert alert to self, patient is chronically ill-looking HEENT: Pupils are round and equally reacting to light. EOMI. No scleral icterus. No conjunctival pallor. Normocephalic, atraumatic. No pharyngeal erythema. No thyromegaly. CARDIOVASCULAR: S1 and S2 present. No murmurs, rubs, or gallops. PULMONARY: Chest is clear to auscultation, no wheezing or crackles. ABDOMEN: Soft, nontender, nondistended, normoactive bowel sounds. No palpable organomegaly. PEG tube seen MUSCULOSKELETAL: No joint swelling or deformity. EXTREMITIES: No cyanosis, clubbing, or pedal edema. NEUROLOGICAL:awake, alert x1. Nonverbal. Patient is bedbound. SKIN: No rashes. Vital Signs - 24 hr 11/22/23 11/22/23 11/22/23 20:07 20:50 20:59 Temperature 97.5 F L Pulse Rate 84 80 Pulse Rate [ 72 Pulse Oximetery ] Respiratory 19 Rate Blood Pressure 147/94 [Right Arm] O2 Sat by Pulse 96 Oximetry 11/23/23 11/23/23 11/23/23 01:31 07:01 08:05 Temperature 98.0 F 98.3 F Pulse Rate 84 Pulse Rate [ 72 66 Pulse Oximetery ] Respiratory 19 21 Rate Blood Pressure 143/88 137/86 [Right Arm] O2 Sat by Pulse 96 88 L Oximetry 11/23/23 11/23/23 11/23/23 08:13 14:23 14:32 Temperature Pulse Rate 82 87 89 Pulse Rate [ Pulse Oximetery ] Respiratory Rate Blood Pressure [Right Arm] O2 Sat by Pulse Oximetry Total time taken greater than 35 minutes including 18 minutes for counseling and coordination of care. Patient Condition at Discharge: Stable Plan - Discharge Summary Discharge Rx Participant: Yes New Discharge Prescriptions: Continue Aspirin 81 mg PEG/G-TUBE DAILY Acetaminophen Tab [Tylenol] 650 mg PEG/G-TUBE Q4H PRN PRN Reason: Fever And/ Or Pain carBAMazepine [carBAMazepine Oral Susp] 100 mg PEG/G-TUBE TID Amantadine Hcl Solution 50mg/5ml 100 mg PEG/G-TUBE DAILY Scopolamine [Scopolamine 1 MG/72 HR patch] 2 patch TRANSDERM Q72H Lactulose 20 gm PEG/G-TUBE TID bisacodyL [Dulcolax] 10 mg RECTAL DAILY suppositor polyethylene glycoL 3350 [Miralax] 17 gm PEG/G-TUBE HS lisinopriL [Zestril] 2.5 mg PEG/G-TUBE DAILY Lacosamide [Vimpat Oral Soln] 150 mg PEG/G-TUBE Q12H Ipratropium-Albuterol Nebulize [Duoneb 0.5 mg-3 mg/3 ml Soln] 3 ml INHALATION RT-Q8H Metoprolol Tartrate [Lopressor] 50 mg PEG/G-TUBE BID oxyBUTYnin chloride 5 mg PEG/G-TUBE Q8H Atorvastatin [Lipitor] 40 mg PEG/G-TUBE HS Famotidine [Pepcid] 20 mg PEG/G-TUBE DAILY Baclofen [Lioresal] 5 mg PEG/G-TUBE TID Discharge Medication List Aspirin 81 mg PEG/G-TUBE DAILY 11/27/20 [History] Acetaminophen Tab [Tylenol] 650 mg PEG/G-TUBE Q4H PRN 06/13/21 [History] Metoprolol Tartrate [Lopressor] 50 mg PEG/G-TUBE BID 06/13/21 [History] carBAMazepine [carBAMazepine Oral Susp] 100 mg PEG/G-TUBE TID 07/02/21 [History] Amantadine Hcl Solution 50mg/5ml 100 mg PEG/G-TUBE DAILY 12/22/21 [History] Lactulose 20 gm PEG/G-TUBE TID 01/03/22 [History] Scopolamine [Scopolamine 1 MG/72 HR patch] 2 patch TRANSDERM Q72H 01/03/22 [History] oxyBUTYnin chloride 5 mg PEG/G-TUBE Q8H 12/19/22 [History] Atorvastatin [Lipitor] 40 mg PEG/G-TUBE HS 07/14/23 [History] Famotidine [Pepcid] 20 mg PEG/G-TUBE DAILY 07/14/23 [History] bisacodyL [Dulcolax] 10 mg RECTAL DAILY suppositor 09/26/23 [Rx] polyethylene glycoL 3350 [Miralax] 17 gm PEG/G-TUBE HS 10/17/23 [History] Baclofen [Lioresal] 5 mg PEG/G-TUBE TID 11/18/23 [History] Ipratropium-Albuterol Nebulize [Duoneb 0.5 mg-3 mg/3 ml Soln] 3 ml INHALATION RT-Q8H 11/18/23 [History] Lacosamide [Vimpat Oral Soln] 150 mg PEG/G-TUBE Q12H 11/18/23 [History] lisinopriL [Zestril] 2.5 mg PEG/G-TUBE DAILY 11/18/23 [History] Follow up Appointment(s)/Referral(s): Katie Peres, [NON-STAFF] - As Needed None,Stated [Primary Care Provider] - 1-2 days Discharge Disposition: TRANSFER TO SNF/ECF
[2023-11-23 16:48] LABS: Glucose,Whole Blood 92 mg/dL (70-110)
[2023-11-23 18:34] VITALS: BP 135/86; PULSE 92; RESP 20; TEMP 98
== END 2023-11-23 19:01 | DRG 698 ==
LOC: EC 15:01 → 5NMEDONC 19:44 → 4SSUR 22:00 → OBSVTOIN 11-21 10:29 → 4SSUR 11-23 01:12
PROVIDERS: ADMIT Hospitalist; ATTEND Hospitalist
PROC: 05HB33Z Insertion of Infusion Device into Right Basilic Vein, Percutaneous Approach (ICD-10-PCS; principal; 2023-11-21 11:50)
DX: T83.518A Infection and inflammatory reaction due to other urinary catheter, initial encounter (principal); G93.41 Metabolic encephalopathy; N39.0 Urinary tract infection, site not specified; Y84.6 Urinary catheterization as the cause of abnormal reaction of the patient, or of later complication, without mention of misadventure at the time of the procedure; F32.A Depression, unspecified; G35 Multiple sclerosis; I10 Essential (primary) hypertension; G40.909 Epilepsy, unspecified, not intractable, without status epilepticus; N31.9 Neuromuscular dysfunction of bladder, unspecified; Z74.01 Bed confinement status; Z11.52 Encounter for screening for COVID-19; G50.0 Trigeminal neuralgia; K21.9 Gastro-esophageal reflux disease without esophagitis; R13.10 Dysphagia, unspecified; Z79.82 Long term (current) use of aspirin; Z79.899 Other long term (current) drug therapy; Z82.49 Family history of ischemic heart disease and other diseases of the circulatory system; Z86.19 Personal history of other infectious and parasitic diseases; Z86.718 Personal history of other venous thrombosis and embolism; Z87.440 Personal history of urinary (tract) infections; Z88.9 Allergy status to unspecified drugs, medicaments and biological substances; Z93.1 Gastrostomy status; Z87.01 Personal history of pneumonia (recurrent)
CPT/HCPCS: 36410; 36415; 71046; 76937; 80048; 80053; 80306; 81001; 83880; 84145; 84484; 85025; 85610; 85730; 87040; 87086; 87636; 93005; 94640; 96374; 96375; 99285

== ENCOUNTER 2024-01-13 20:42 | Emergency (ER) | payer MEDICARE, OTHER ==
[2024-01-13 21:10] VITALS: RESP 20
--- NOTE | 2024-01-13 21:34 | ED ---
General Adult HPI - General Chief complaint: Recheck/Abnormal Lab/Rx Stated complaint: Clogged peg tube Time Seen by Provider: 01/13/24 21:12 Source: EMS Mode of arrival: EMS Limitations: language barrier, altered mental status, physical limitation - History of Present Illness Initial comments: Dictation was produced using [employer] AI dictation software. please excuse any grammatical, word or spelling errors. Chief Complaint: 63-year-old male brought to the emergency department for nonfunctioning PEG tube History of Present Illness: Patient is a 63-year-old male with multiple comorbidities, debility presents to the ER for PEG tube malfunction. Patient unable to provide history of present illness due to chronic mental debility. History of present illness obtained from nurse received report from EMS. He does also have paperwork that states that he is here for PEG tube malfunction Unable to obtain ROS secondary to mental status. - Related Data Home Medications Medication Instructions Recorded Confirmed Aspirin 81 mg PEG/G-TUBE DAILY 11/27/20 11/18/23 Acetaminophen Tab [Tylenol] 650 mg PEG/G-TUBE Q4H PRN 06/13/21 11/18/23 Metoprolol Tartrate [Lopressor] 50 mg PEG/G-TUBE BID 06/13/21 11/18/23 carBAMazepine [carBAMazepine Oral 100 mg PEG/G-TUBE TID 07/02/21 11/18/23 Susp] Amantadine Hcl Solution 50mg/5ml 100 mg PEG/G-TUBE DAILY 12/22/21 11/18/23 Lactulose 20 gm PEG/G-TUBE TID 01/03/22 11/18/23 Scopolamine [Scopolamine 1 MG/72 2 patch TRANSDERM Q72H 01/03/22 11/18/23 HR patch] oxyBUTYnin chloride 5 mg PEG/G-TUBE Q8H 12/19/22 11/18/23 Atorvastatin [Lipitor] 40 mg PEG/G-TUBE HS 07/14/23 11/18/23 Famotidine [Pepcid] 20 mg PEG/G-TUBE DAILY 07/14/23 11/18/23 polyethylene glycoL 3350 [Miralax] 17 gm PEG/G-TUBE HS 10/17/23 11/18/23 Baclofen [Lioresal] 5 mg PEG/G-TUBE TID 11/18/23 11/18/23 Ipratropium-Albuterol Nebulize 3 ml INHALATION RT-Q8H 11/18/23 11/18/23 [Duoneb 0.5 mg-3 mg/3 ml Soln] Lacosamide [Vimpat Oral Soln] 150 mg PEG/G-TUBE Q12H 11/18/23 11/18/23 lisinopriL [Zestril] 2.5 mg PEG/G-TUBE DAILY 11/18/23 11/18/23 Previous Rx's Medication Instructions Recorded bisacodyL [Dulcolax] 10 mg RECTAL DAILY suppositor 09/26/23 Allergies Allergy/AdvReac Type Severity Reaction Status Date / Time meropenem [From Merrem] Allergy Rash/Hives Verified 01/13/24 20:58 ceftolozane [From Zerbaxa] AdvReac Rapid Verified 01/13/24 20:58 Heart Rate tazobactam [From Zerbaxa] AdvReac Rapid Verified 01/13/24 20:58 Heart Rate Review of Systems ROS Statement: Those systems with pertinent positive or pertinent negative responses have been documented in the HPI. ROS Other: All systems not noted in ROS Statement are negative. Past Medical History Past Medical History: Deep Vein Thrombosis (DVT), GERD/Reflux, Hypertension, Musculoskeletal Disorder, Neurologic Disorder, Pneumonia, Seizure Disorder, Skin Disorder Additional Past Medical History / Comment(s): Pt diagnosed with MS at the age of 39 yrs, seizure/pneumonia/UTI with sepsis/respirtory failure/vented, cognitive impairment, sister states when he is feeling well he could speak a few words/nod head appropriately/give thumbs up/roll eyes but when ill is nonverbal, pt has dysphagia/NPO with peg tube, contractures, last seizure 07/2020, trigeminal neuralgia, dysarthria/anarthria/neurogenic bladder with IDC-UTIs/sepsis, multiple pneumonias, recent seizure-last one 07/03/20, incontinent of stool, pt has had decubitus ulcer coccyx-sister unsure of skin condition at this time, past anemia r/t heparin/epistaxiis which involved nasal packing/transfusions, DVT bilateral arms, hypoxia, oxygen at 2L/NC, L femoral head fracture History of Any Multi-Drug Resistant Organisms: ESBL, MRSA, Other MDRO Date of last positivie culture/infection: 03/09/21-MRSA; 11/23/19 ESBL-E.coli MDRO Source:: Abdomen-Peg site MRSA; Urine -ESBL Past Surgical History: Tonsillectomy Additional Past Surgical History / Comment(s): Gastrostomy, peg tube, I&D coccyx decubitius, bronchoscopy, bilateral lasik eye surgery. Past Anesthesia/Blood Transfusion Reactions: No Reported Reaction Additional Past Anesthesia/Blood Transfusion Reaction / Comment(s): Pt has received blood in past without reaction. Past Psychological History: Depression Smoking Status: Never smoker Past Alcohol Use History: None Reported Past Drug Use History: None Reported - Past Family History Father Family Medical History: Myocardial Infarction ([place]) Mother Family Medical History: Hypertension, Myocardial Infarction ([place]) Additional Family Medical History / Comment(s): Mother of a [place] at the age of 73 yrs. General Exam - General Exam Comments Initial Comments: General: Well-appearing, nontoxic, no acute distress. Head: Normocephalic, atraumatic Eyes: PERRLA, EOMI ENT: Airway patent Chest: Nonlabored breathing Skin: No visual rash, normal skin tone Neuro: Alert and oriented 3 Musculoskeletal: No gross abnormalities Limitations: language barrier, altered mental status, physical limitation Course Vital Signs 01/13/24 20:58 Temperature 98.4 F Pulse Rate 97 Respiratory 20 Rate Blood Pressure 124/84 O2 Sat by Pulse 99 Oximetry Medical Decision Making - Medical Decision Making Was pt. sent in by a medical professional or institution ( PA, CURATORIAL ASSISTANT, urgent care, hospital, or assisted...) When possible be specific @ -No Did you speak to anyone other than the patient for history (EMS, parent, family, police, friend...)? What history was obtained from this source @ -No Did you review nursing and triage notes (agree or disagree)? Why? @ -I reviewed and agree with nursing and triage notes Were old charts reviewed (outside hosp., previous admission, EMS record, old EKG, old radiological studies, urgent care reports/EKG's, assisted records)? Report findings @ -No old charts were reviewed Differential Diagnosis (chest pain, altered mental status, abdominal pain women, abdominal pain men, vaginal bleeding, musculoskeletal, weakness, fever, dyspnea, syncope, headache, dizziness, GI bleed, back pain, seizure, CVA, palpatations, mental health)? @ -Not applicable EKG interpreted by me (3pts min.). @ -None done X-rays interpreted by me (1pt min.). @ -Abdominal x-ray with contrast confirms PEG tube placement is adequate CT interpreted by me (1pt min.). @ -None done U/S interpreted by me (1pt. min.). @ -None done What testing was considered but not performed or refused? (CT, X-rays, U/S, labs)? Why? @ -None What meds were considered but not given or refused? Why? @ -None Did you discuss the management of the patient with other professionals (professionals i.e. , PA, CURATORIAL ASSISTANT, lab, RT, psych nurse, social insurance administrator, maintenance carpenter, teacher, quarantine officer, caseworker protective services)? Give summary @ -No Was smoking cessation discussed for >3mins.? @ -No Was critical care preformed (if so, how long)? @ -No Were there social determinants of health that impacted care today? How? (Homelessness, low income, unemployed, alcoholism, drug addiction, transportation, low edu. Level, literacy, decrease access to med. care, retirement, rehab)? @ -No Was there de-escalation of care discussed even if they declined (Discuss DNR or withdrawal of care, Hospice)? DNR status @ -No What co-morbidities impacted this encounter? (DM, HTN, Smoking, COPD, CAD, Cancer, CVA, ARF, Chemo, Hep., AIDS, mental health diagnosis, sleep apnea, morbid obesity)? @ -None Was patient admitted / discharged? Hospital course, mention meds given and route, prescriptions, significant lab abnormalities, going to OR and other pe rtinent info. @ -63-year-old male presents emergency department for PEG tube placement. Patient is debilitated. Vital signs stable. PEG tube was replaced with no complications. Patient discharged back to assisted. Undiagnosed new problem with uncertain prognosis? @ -No Drug Therapy requiring intensive monitoring for toxicity (Heparin, Nitro, Insulin, Cardizem)? @ -No Were any procedures done? @ -PEG tube replacement Diagnosis/symptom? Acute, or Chronic, or Acute on Chronic? Uncomplicated (without systemic symptoms) or Complicated (systemic symptoms)? @ -PEG tube malfunction Side effects of treatment? @ -No Exacerbation, Progression, or Severe Exacerbation? @ -No Poses a threat to life or bodily function? How? (Chest pain, [place], [place], pneumonia, PE, COPD, DKA, ARF, appy, cholecystitis, CVA, Diverticulitis, Homicidal, Suicidal, threat to staff... and all critical care pts) @ -No Disposition Clinical Impression: PEG tube malfunction Disposition: HOME SELF-CARE Condition: Good Is patient prescribed a controlled substance at d/c from ED?: No Referrals: None,Stated [Primary Care Provider] - 1-2 days Time of Disposition: 22:24
--- NOTE | 2024-01-13 22:51 | XR ---
EXAM: XR Abdomen, 1 View CLINICAL HISTORY: ITS.REASON XR Reason: peg tube placement/pegogram TECHNIQUE: Frontal supine view of the abdomen/pelvis. COMPARISON: No relevant prior studies available. FINDINGS: Gastrointestinal tract: Unremarkable. No dilation. Bones/joints: Unremarkable. No acute fracture. Tubes, lines and devices: Gastrostomy tube is appropriately positioned. Oral contrast is seen passing from the catheter into the stomach and duodenum. IMPRESSION: Appropriate position percutaneous gastrostomy tube
[2024-01-14 01:43] VITALS: BP 138/81; PULSE 94; TEMP 97
== END 2024-01-14 03:22 | disposition home or self-care (01) ==
LOC: EC 20:42
DX: K94.23 Gastrostomy malfunction (principal); Z88.0 Allergy status to penicillin
CPT/HCPCS: 43762; 74018; 99283

== ENCOUNTER 2024-07-03 19:30 | Emergency (ER) | payer MEDICARE, OTHER ==
[2024-07-03 19:43] VITALS: TEMP 97.9
--- NOTE | 2024-07-03 19:49 | ED ---
Recheck HPI - General Chief Complaint: Recheck/Abnormal Lab/Rx Stated Complaint: Peg2 Replacement Time Seen by Provider: 07/03/24 19:38 Source: EMS, RN notes reviewed, old records reviewed Mode of arrival: EMS Limitations: no limitations - History of Present Illness Initial Comments: This is a 64-year-old male to ER for accidental PEG tube removal and PEG tube replacement here MD Complaint: other (Patient needs PEG tube replacement) -: hour(s) Symptoms Since Prior Visit: no new symptoms Associated Symptoms: none - Related Data Home Medications Medication Instructions Recorded Confirmed Aspirin 81 mg PEG/G-TUBE DAILY 11/27/20 11/18/23 Acetaminophen Tab [Tylenol] 650 mg PEG/G-TUBE Q4H PRN 06/13/21 11/18/23 Metoprolol Tartrate [Lopressor] 50 mg PEG/G-TUBE BID 06/13/21 11/18/23 carBAMazepine [carBAMazepine Oral 100 mg PEG/G-TUBE TID 07/02/21 11/18/23 Susp] Amantadine Hcl Solution 50mg/5ml 100 mg PEG/G-TUBE DAILY 12/22/21 11/18/23 Lactulose 20 gm PEG/G-TUBE TID 01/03/22 11/18/23 Scopolamine [Scopolamine 1 MG/72 2 patch TRANSDERM Q72H 01/03/22 11/18/23 HR patch] oxyBUTYnin chloride 5 mg PEG/G-TUBE Q8H 12/19/22 11/18/23 Atorvastatin [Lipitor] 40 mg PEG/G-TUBE HS 07/14/23 11/18/23 Famotidine [Pepcid] 20 mg PEG/G-TUBE DAILY 07/14/23 11/18/23 polyethylene glycoL 3350 [Miralax] 17 gm PEG/G-TUBE HS 10/17/23 11/18/23 Baclofen [Lioresal] 5 mg PEG/G-TUBE TID 11/18/23 11/18/23 Ipratropium-Albuterol Nebulize 3 ml INHALATION RT-Q8H 11/18/23 11/18/23 [Duoneb 0.5 mg-3 mg/3 ml Soln] Lacosamide [Vimpat Oral Soln] 150 mg PEG/G-TUBE Q12H 11/18/23 11/18/23 lisinopriL [Zestril] 2.5 mg PEG/G-TUBE DAILY 11/18/23 11/18/23 Previous Rx's Medication Instructions Recorded bisacodyL [Dulcolax] 10 mg RECTAL DAILY suppositor 09/26/23 Allergies Allergy/AdvReac Type Severity Reaction Status Date / Time meropenem [From Merrem] Allergy Rash/Hives Verified 07/03/24 19:40 ceftolozane [From Zerbaxa] AdvReac Rapid Verified 07/03/24 19:40 Heart Rate tazobactam [From Zerbaxa] AdvReac Rapid Verified 07/03/24 19:40 Heart Rate Review of Systems ROS Statement: Those systems with pertinent positive or pertinent negative responses have been documented in the HPI. ROS Other: All systems not noted in ROS Statement are negative. Past Medical History Past Medical History: Deep Vein Thrombosis (DVT), GERD/Reflux, Hypertension, Musculoskeletal Disorder, Neurologic Disorder, Pneumonia, Seizure Disorder, Skin Disorder Additional Past Medical History / Comment(s): Pt diagnosed with MS at the age of 39 yrs, seizure/pneumonia/UTI with sepsis/respirtory failure/vented, cognitive impairment, sister states when he is feeling well he could speak a few words/nod head appropriately/give thumbs up/roll eyes but when ill is nonverbal, pt has dysphagia/NPO with peg tube, contractures, last seizure 07/2020, trigeminal neuralgia, dysarthria/anarthria/neurogenic bladder with IDC-UTIs/sepsis, multiple pneumonias, recent seizure-last one 07/03/20, incontinent of stool, pt has had decubitus ulcer coccyx-sister unsure of skin condition at this time, past anemia r/t heparin/epistaxiis which involved nasal packing/transfusions, DVT bilateral arms, hypoxia, oxygen at 2L/NC, L femoral head fracture History of Any Multi-Drug Resistant Organisms: ESBL, MRSA, Other MDRO Date of last positivie culture/infection: 03/09/21-MRSA; 11/23/19 ESBL-E.coli MDRO Source:: Abdomen-Peg site MRSA; Urine -ESBL Past Surgical History: Tonsillectomy Additional Past Surgical History / Comment(s): Gastrostomy, peg tube, I&D coccyx decubitius, bronchoscopy, bilateral lasik eye surgery. Past Anesthesia/Blood Transfusion Reactions: No Reported Reaction Additional Past Anesthesia/Blood Transfusion Reaction / Comment(s): Pt has received blood in past without reaction. Past Psychological History: Depression Smoking Status: Never smoker Past Alcohol Use History: None Reported Past Drug Use History: None Reported - Past Family History Father Family Medical History: Myocardial Infarction ([place]) Mother Family Medical History: Hypertension, Myocardial Infarction ([place]) Additional Family Medical History / Comment(s): Mother of a [place] at the age of 73 yrs. General Exam General appearance: alert, in no apparent distress, anxious Head exam: Present: atraumatic, normocephalic, normal inspection Eye exam: Present: normal appearance, PERRL, EOMI. Absent: scleral icterus, conjunctival injection, periorbital swelling ENT exam: Present: normal exam, mucous membranes moist Neck exam: Present: normal inspection. Absent: tenderness, meningismus, lymphadenopathy Respiratory exam: Present: normal lung sounds bilaterally. Absent: respiratory distress, wheezes, rales, rhonchi, stridor Cardiovascular Exam: Present: regular rate, normal rhythm, normal heart sounds. Absent: systolic murmur, diastolic murmur, rubs, gallop, clicks GI/Abdominal exam: Present: soft, normal bowel sounds. Absent: distended, tenderness, guarding, rebound, rigid Extremities exam: Present: normal inspection, full ROM, normal capillary refill. Absent: tenderness, pedal edema, joint swelling, calf tenderness Back exam: Present: normal inspection Neurological exam: Present: alert, oriented X3, CN II-XII intact Psychiatric exam: Present: normal affect, normal mood Skin exam: Present: warm, dry, intact, normal color. Absent: rash Course Vital Signs 07/03/24 07/03/24 07/03/24 19:34 21:27 22:08 Temperature 97.9 F Pulse Rate 89 81 82 Respiratory 20 18 20 Rate Blood Pressure 168/105 152/91 155/96 O2 Sat by Pulse 96 97 98 Oximetry - Reevaluation(s) Reevaluation #1: 07/03/24 20:10 Medical records reviewed Reevaluation #2: 07/03/24 20:10 Patient symptoms unchanged Reevaluation #3: 07/03/24 20:10 Patient informed of results and questions answered Reevaluation #4: 10/03/24 20:10 Was pt. sent in by a medical professional or institution (CECIL Ribera, GLASS ARTIST, urgent care, hospital, or skilled nursing...) When possible be specific @ -no Did you speak to anyone other than the patient for history (EMS, parent, family, police, friend...)? What history was obtained from this source @ -no Did you review nursing and triage notes (agree or disagree)? Why? @ -agree Are old charts reviewed (outside hosp., previous admission, EMS record, old EKG, old radiological studies, urgent care reports/EKG's, skilled nursing records)? Report findings @ -yes Differential Diagnosis (chest pain, altered mental status, abdominal pain women, abdominal pain men, vaginal bleeding, weakness, fever, dyspnea, syncope, headac he, dizziness, GI bleed, back pain, seizure, CVA, palpatations, mental health, musculoskeletal)? @ -prior EKG interpreted by me (3pts min.). @ -no X-rays interpreted by me (1pt min.). @ -no CT interpreted by me (1pt min.). @ -no U/S interpreted by me (1pt. min.). @ -no What testing was considered but not performed or refused? (CT, X-rays, U/S, labs)? Why? @ -none What meds were considered but not given or refused? Why? @ -none Did you discuss the management of the patient with other professionals (professionals i.e. CECIL Ribera, GLASS ARTIST, lab, RT, psych nurse, social media specialist, institutional cook, teacher, conservation science officer, home health care case manager)? Give summary @ -no Was smoking cessation discussed for >3mins.? @ -no Was critical care preformed (if so, how long)? @ -no Were there social determinants of health that impacted care today? How? (Homelessness, low income, unemployed, alcoholism, drug addiction, transportation, low edu. Level, literacy, decrease access to med. care, longterm, rehab)? @ -none Was there de-escalation of care discussed even if they declined (Discuss DNR or withdrawal of care, Hospice)? DNR status @ -no What co-morbidities impacted this encounter? (DM, HTN, Smoking, COPD, CAD, Cancer, CVA, ARF, Chemo, Hep., AIDS, mental health diagnosis, sleep apnea, morbid obesity)? @ -none Was patient admitted / discharged? Hospital course, mention meds given and route, prescriptions, significant lab abnormalities, going to OR and other pertinent info. @ - 64 male to ER for evaluation of PEG tube placement, patient has PEG tube replaced here in the ER with out difficulty and can be discharged Discharge Undiagnosed new problem with uncertain prognosis? @ -no Drug Therapy requiring intensive monitoring for toxicity (Heparin, Nitro, Insulin, Cardizem)? @ -no Were any procedures done? @ -no Diagnosis/symptom? @ -PEG tube improvement Acute, or Chronic, or Acute on Chronic? @ -Acute Uncomplicated (without systemic symptoms) or Complicated (systemic symptoms)? @ -Complicated Side effects of treatment? @ -no Exacerbation, Progression, or Severe Exacerbation? @ -exacerbation Poses a threat to life or bodily function? How? (Chest pain, [place], [place], pneumonia, PE, COPD, DKA, ARF, appy, cholecystitis, CVA, Diverticulitis, Homicidal, Suicidal, threat to staff... and all critical care pts) @ -yes failure to thrive Medical Decision Making - Medical Decision Making 64 male to ER for evaluation of PEG tube placement, patient has PEG tube replaced here in the ER with out difficulty and can be discharged - EKG Data -: EKG Interpreted by Me Disposition Clinical Impression: PEG tube malfunction Disposition: HOME SELF-CARE Condition: Fair Instructions (If sedation given, give patient instructions): How to Use and Care for Your PEG Tube (ED), PEG Tube Insertion (DC) Is patient prescribed a controlled substance at d/c from ED?: No Referrals: DEANGELO NEUMANN MD [Primary Care Provider] - 1-2 days
[2024-07-03 22:10] VITALS: BP 155/96; PULSE 82; RESP 20
== END 2024-07-03 22:10 | disposition home or self-care (01) ==
LOC: EC 19:30
CPT/HCPCS: 99283

== ENCOUNTER 2024-07-24 17:56 | Emergency (ER) | payer MEDICARE, OTHER ==
[2024-07-24 18:21] VITALS: TEMP 99.3
--- NOTE | 2024-07-24 18:28 | ED ---
Recheck HPI - General Chief Complaint: Recheck/Abnormal Lab/Rx Stated Complaint: peg tube malfunction Time Seen by Provider: 07/24/24 18:15 Source: EMS, RN notes reviewed, old records reviewed, Caregiver Mode of arrival: EMS Limitations: altered mental status - History of Present Illness Initial Comments: This is a 64-year-old male who is unable to prescribe describe any history presenting for PEG tube malfunction. Returns Today for: other Symptoms Since Prior Visit: no new symptoms Context: planned re-check Associated Symptoms: none Treatments Prior to Arrival: other (0) - Related Data Home Medications Medication Instructions Recorded Confirmed Aspirin 81 mg PEG/G-TUBE DAILY 11/27/20 11/18/23 Acetaminophen Tab [Tylenol] 650 mg PEG/G-TUBE Q4H PRN 06/13/21 11/18/23 Metoprolol Tartrate [Lopressor] 50 mg PEG/G-TUBE BID 06/13/21 11/18/23 carBAMazepine [carBAMazepine Oral 100 mg PEG/G-TUBE TID 07/02/21 11/18/23 Susp] Amantadine Hcl Solution 50mg/5ml 100 mg PEG/G-TUBE DAILY 12/22/21 11/18/23 Lactulose 20 gm PEG/G-TUBE TID 01/03/22 11/18/23 Scopolamine [Scopolamine 1 MG/72 2 patch TRANSDERM Q72H 01/03/22 11/18/23 HR patch] oxyBUTYnin chloride 5 mg PEG/G-TUBE Q8H 12/19/22 11/18/23 Atorvastatin [Lipitor] 40 mg PEG/G-TUBE HS 07/14/23 11/18/23 Famotidine [Pepcid] 20 mg PEG/G-TUBE DAILY 07/14/23 11/18/23 polyethylene glycoL 3350 [Miralax] 17 gm PEG/G-TUBE HS 10/17/23 11/18/23 Baclofen [Lioresal] 5 mg PEG/G-TUBE TID 11/18/23 11/18/23 Ipratropium-Albuterol Nebulize 3 ml INHALATION RT-Q8H 11/18/23 11/18/23 [Duoneb 0.5 mg-3 mg/3 ml Soln] Lacosamide [Vimpat Oral Soln] 150 mg PEG/G-TUBE Q12H 11/18/23 11/18/23 lisinopriL [Zestril] 2.5 mg PEG/G-TUBE DAILY 11/18/23 11/18/23 Previous Rx's Medication Instructions Recorded bisacodyL [Dulcolax] 10 mg RECTAL DAILY suppositor 09/26/23 Allergies Allergy/AdvReac Type Severity Reaction Status Date / Time meropenem [From Merrem] Allergy Rash/Hives Verified 07/03/24 19:40 ceftolozane [From Zerbaxa] AdvReac Rapid Verified 07/03/24 19:40 Heart Rate tazobactam [From Zerbaxa] AdvReac Rapid Verified 07/03/24 19:40 Heart Rate Review of Systems ROS Statement: Those systems with pertinent positive or pertinent negative responses have been documented in the HPI. ROS Other: All systems not noted in ROS Statement are negative. Past Medical History Past Medical History: Deep Vein Thrombosis (DVT), GERD/Reflux, Hypertension, Musculoskeletal Disorder, Neurologic Disorder, Pneumonia, Seizure Disorder, Skin Disorder Additional Past Medical History / Comment(s): Pt diagnosed with MS at the age of 39 yrs, seizure/pneumonia/UTI with sepsis/respirtory failure/vented, cognitive impairment, sister states when he is feeling well he could speak a few words/nod head appropriately/give thumbs up/roll eyes but when ill is nonverbal, pt has dysphagia/NPO with peg tube, contractures, last seizure 07/2020, trigeminal neuralgia, dysarthria/anarthria/neurogenic bladder with IDC-UTIs/sepsis, multiple pneumonias, recent seizure-last one 07/03/20, incontinent of stool, pt has had decubitus ulcer coccyx-sister unsure of skin condition at this time, past anemia r/t heparin/epistaxiis which involved nasal packing/transfusions, DVT bilateral arms, hypoxia, oxygen at 2L/NC, L femoral head fracture History of Any Multi-Drug Resistant Organisms: ESBL, MRSA, Other MDRO Date of last positivie culture/infection: 03/09/21-MRSA; 11/23/19 ESBL-E.coli MDRO Source:: Abdomen-Peg site MRSA; Urine -ESBL Past Surgical History: Tonsillectomy Additional Past Surgical History / Comment(s): Gastrostomy, peg tube, I&D coccyx decubitius, bronchoscopy, bilateral lasik eye surgery. Past Anesthesia/Blood Transfusion Reactions: No Reported Reaction Additional Past Anesthesia/Blood Transfusion Reaction / Comment(s): Pt has received blood in past without reaction. Past Psychological History: Depression Smoking Status: Never smoker Past Alcohol Use History: None Reported Past Drug Use History: None Reported - Past Family History Father Family Medical History: Myocardial Infarction ([place]) Mother Family Medical History: Hypertension, Myocardial Infarction ([place]) Additional Family Medical History / Comment(s): Mother of a [place] at the age of 73 yrs. General Exam General appearance: alert, in no apparent distress Head exam: Present: atraumatic, normocephalic, normal inspection Eye exam: Present: normal appearance, PERRL, EOMI. Absent: scleral icterus, conjunctival injection, periorbital swelling ENT exam: Present: normal exam, mucous membranes moist Neck exam: Present: normal inspection. Absent: tenderness, meningismus, lymphadenopathy Respiratory exam: Present: normal lung sounds bilaterally. Absent: respiratory distress, wheezes, rales, rhonchi, stridor Cardiovascular Exam: Present: regular rate, normal rhythm, normal heart sounds. Absent: systolic murmur, diastolic murmur, rubs, gallop, clicks GI/Abdominal exam: Present: soft, normal bowel sounds. Absent: distended, tenderness, guarding, rebound, rigid Extremities exam: Present: normal inspection, full ROM, normal capillary refill. Absent: tenderness, pedal edema, joint swelling, calf tenderness Back exam: Present: normal inspection Neurological exam: Present: alert, oriented X3, CN II-XII intact Psychiatric exam: Present: normal affect, normal mood Skin exam: Present: warm, dry, intact, normal color. Absent: rash Course Vital Signs 07/24/24 18:07 Temperature 99.3 F Pulse Rate 55 L Respiratory 18 Rate Blood Pressure 142/87 O2 Sat by Pulse 91 L Oximetry - Reevaluation(s) Reevaluation #1: 07/24/24 18:27 Medical records reviewed Reevaluation #2: 07/24/24 18:27 PEG tube is replaced Reevaluation #3: 07/24/24 18:27 Patient informed of results and questions answered Reevaluation #4: Was pt. sent in by a medical professional or institution (, PA, [employer]BI[employer]PH[employer] TRIM INSTALLER, urgent care, hospital, or halfway...) When possible be specific @ -no Did you speak to anyone other than the patient for history (EMS, parent, family, police, friend...)? What history was obtained from this source @ -no Did you review nursing and triage notes (agree or disagree)? Why? @ -agree Are old charts reviewed (outside hosp., previous admission, EMS record, old EKG, old radiological studies, urgent care reports/EKG's, halfway records)? Report findings @ -yes Differential Diagnosis (chest pain, altered mental status, abdominal pain women, abdominal pain men, vaginal bleeding, weakness, fever, dyspnea, syncope, he adache, dizziness, GI bleed, back pain, seizure, CVA, palpatations, mental health, musculoskeletal)? @ -prior EKG interpreted by me (3pts min.). @ -yes X-rays interpreted by me (1pt min.). @ -yes negative for acute disease CT interpreted by me (1pt min.). @ -no U/S interpreted by me (1pt. min.). @ -no What testing was considered but not performed or refused? (CT, X-rays, U/S, labs)? Why? @ -none What meds were considered but not given or refused? Why? @ -none Did you discuss the management of the patient with other professionals (professionals i.e. , PA, [employer]OBI[employer] UPHOL[employer] TRIM INSTALLER, lab, RT, psych nurse, director social, drive tester, teacher, commanding officer homicide squad, high risk case manager)? Give summary @ -no Was smoking cessation discussed for >3mins.? @ -no Was critical care preformed (if so, how long)? @ -no Were there social determinants of health that impacted care today? How? (Homelessness, low income, unemployed, alcoholism, drug addiction, transportation, low edu. Level, literacy, decrease access to med. care, half-way, rehab)? @ -none Was there de-escalation of care discussed even if they declined (Discuss DNR or withdrawal of care, Hospice)? DNR status @ -no What co-morbidities impacted this encounter? (DM, HTN, Smoking, COPD, CAD, Cancer, CVA, ARF, Chemo, Hep., AIDS, mental health diagnosis, sleep apnea, morbid obesity)? @ -none Was patient admitted / discharged? Hospital course, mention meds given and route, prescriptions, significant lab abnormalities, going to OR and other pertinent info. @ - Undiagnosed new problem with uncertain prognosis? @ -no Drug Therapy requiring intensive monitoring for toxicity (Heparin, Nitro, Insulin, Cardizem)? @ -no Were any procedures done? @ -no Diagnosis/symptom? @ - Acute, or Chronic, or Acute on Chronic? @ -Acute Uncomplicated (without systemic symptoms) or Complicated (systemic symptoms)? @ -Complicated Side effects of treatment? @ -no Exacerbation, Progression, or Severe Exacerbation? @ -exacerbation Poses a threat to life or bodily function? How? (Chest pain, [place], [place], pneumonia, PE, COPD, DKA, ARF, appy, cholecystitis, CVA, Diverticulitis, Homicidal, Suicidal, threat to staff... and all critical care pts) @ -yes Medical Decision Making - Medical Decision Making 64 male with PEG tube malfunction, PEG tube is replaced here in the ER flushed and reposition, patient has no complaints and is discharged Disposition Clinical Impression: Altered mental status, Gastrostomy tube dependent, PEG tube malfunction Disposition: HOME SELF-CARE Condition: Good Instructions (If sedation given, give patient instructions): PEG Tube Insertion (DC) Is patient prescribed a controlled substance at d/c from ED?: No Referrals: DEANGELO NEUMANN MD [Primary Care Provider] - 1-2 days Time of Disposition: 18:30
[2024-07-24 20:00] VITALS: BP 165/96; PULSE 66; RESP 20
== END 2024-07-24 20:25 | disposition home or self-care (01) ==
LOC: EC 17:56
CPT/HCPCS: 43762; 99283

== ENCOUNTER 2024-07-25 10:58 | Emergency (ER) | payer MEDICARE, OTHER ==
[2024-07-25 11:11] VITALS: TEMP 97.9
--- NOTE | 2024-07-25 13:37 | ED ---
General Adult HPI - General Chief complaint: Recheck/Abnormal Lab/Rx Stated complaint: Peg Tube Time Seen by Provider: 07/25/24 11:38 Source: patient, EMS, RN notes reviewed, old records reviewed Mode of arrival: EMS Limitations: no limitations - History of Present Illness Initial comments: Patient is a 64-year-old male presenting to the emergency department secondary to problems with his PEG tube. Patient was here yesterday and had this replaced. There is concern regarding a leak near the cap. Patient is nonverbal at this time and does not provide any history - Related Data Home Medications Medication Instructions Recorded Confirmed Aspirin 81 mg PEG/G-TUBE DAILY 11/27/20 07/25/24 Acetaminophen Tab [Tylenol] 650 mg PEG/G-TUBE Q4H PRN 06/13/21 07/25/24 Metoprolol Tartrate [Lopressor] 50 mg PEG/G-TUBE BID 06/13/21 07/25/24 carBAMazepine [carBAMazepine Oral 100 mg PEG/G-TUBE TID 07/02/21 07/25/24 Susp] Lactulose 20 gm PEG/G-TUBE TID 01/03/22 07/25/24 Scopolamine [Scopolamine 1 MG/72 1 patch TRANSDERM Q72H 01/03/22 07/25/24 HR patch] oxyBUTYnin chloride 5 mg PEG/G-TUBE TID 12/19/22 07/25/24 Atorvastatin [Lipitor] 40 mg PEG/G-TUBE HS 07/14/23 07/25/24 Famotidine [Pepcid] 20 mg PEG/G-TUBE DAILY 07/14/23 07/25/24 polyethylene glycoL 3350 [Miralax] 17 gm PEG/G-TUBE HS 10/17/23 07/25/24 Ipratropium-Albuterol Nebulize 3 ml INHALATION RT-TID 11/18/23 07/25/24 [Duoneb 0.5 mg-3 mg/3 ml Soln] Lacosamide [Vimpat Oral Soln] 150 mg PEG/G-TUBE BID 11/18/23 07/25/24 lisinopriL [Zestril] 2.5 mg PEG/G-TUBE DAILY 11/18/23 07/25/24 Baclofen 5 mg PEG/G-TUBE TID 07/25/24 07/25/24 Cranberry 450mg 1 tab PEG/G-TUBE DAILY 07/25/24 07/25/24 Prostat 30 ml PEG/G-TUBE DAILY 07/25/24 07/25/24 amantadine HCL [Amantadine] 100 mg PEG/G-TUBE DAILY 07/25/24 07/25/24 bisacodyL [Dulcolax] 10 mg RECTAL DAILY PRN 07/25/24 07/25/24 Allergies Allergy/AdvReac Type Severity Reaction Status Date / Time meropenem [From Merrem] Allergy Rash/Hives Verified 07/25/24 12:45 ceftolozane [From Zerbaxa] AdvReac Rapid Verified 07/25/24 12:45 Heart Rate tazobactam [From Zerbaxa] AdvReac Rapid Verified 07/25/24 12:45 Heart Rate Review of Systems ROS Statement: Those systems with pertinent positive or pertinent negative responses have been documented in the HPI. Limitations: ROS unobtainable due to patients medical condition Past Medical History Past Medical History: Deep Vein Thrombosis (DVT), GERD/Reflux, Hypertension, Musculoskeletal Disorder, Neurologic Disorder, Pneumonia, Seizure Disorder, Skin Disorder Additional Past Medical History / Comment(s): Pt diagnosed with MS at the age of 39 yrs, seizure/pneumonia/UTI with sepsis/respirtory failure/vented, cognitive impairment, sister states when he is feeling well he could speak a few words/nod head appropriately/give thumbs up/roll eyes but when ill is nonverbal, pt has dysphagia/NPO with peg tube, contractures, last seizure 07/2020, trigeminal neuralgia, dysarthria/anarthria/neurogenic bladder with IDC-UTIs/sepsis, multiple pneumonias, recent seizure-last one 07/03/20, incontinent of stool, pt has had decubitus ulcer coccyx-sister unsure of skin condition at this time, past anemia r/t heparin/epistaxiis which involved nasal packing/transfusions, DVT bilateral arms, hypoxia, oxygen at 2L/NC, L femoral head fracture History of Any Multi-Drug Resistant Organisms: ESBL, MRSA, Other MDRO Date of last positivie culture/infection: 03/09/21-MRSA; 11/23/19 ESBL-E.coli MDRO Source:: Abdomen-Peg site MRSA; Urine -ESBL Past Surgical History: Tonsillectomy Additional Past Surgical History / Comment(s): Gastrostomy, peg tube, I&D coccyx decubitius, bronchoscopy, bilateral lasik eye surgery. Past Anesthesia/Blood Transfusion Reactions: No Reported Reaction Additional Past Anesthesia/Blood Transfusion Reaction / Comment(s): Pt has received blood in past without reaction. Past Psychological History: Depression Smoking Status: Never smoker Past Alcohol Use History: None Reported Past Drug Use History: None Reported - Past Family History Father Family Medical History: Myocardial Infarction ([place]) Mother Family Medical History: Hypertension, Myocardial Infarction ([place]) Additional Family Medical History / Comment(s): Mother of a [place] at the age of 73 yrs. General Exam Limitations: no limitations General appearance: alert, in no apparent distress Head exam: Present: normocephalic Eye exam: Present: normal appearance Respiratory exam: Present: normal lung sounds bilaterally Cardiovascular Exam: Present: regular rate, normal rhythm GI/Abdominal exam: Present: soft. Absent: tenderness Neurological exam: Present: alert Psychiatric exam: Present: flat affect Course Vital Signs 07/25/24 10:59 Temperature 97.9 F Pulse Rate 45 L Respiratory 24 Rate Blood Pressure 118/70 O2 Sat by Pulse 91 L Oximetry Procedures - Feeding Tube Replacement Reason for Replacement: not functioning/damaged Initial Tube Inserted: greater than 2 weeks Insertion Site Prior to Procedure: clean Irish Tube Size (F): 14 Balloon Size (mls): 8 Verification of Placement: auscultation (And flushing) Tube Secured by: G-tube attachment device Patient Tolerated Procedure: well, no complications Medical Decision Making - Medical Decision Making Was pt. sent in by a medical professional or institution (Dr. PA, PUBLISHING AGENT, urgent care, hospital, or halfway...) When possible be specific @ -Patient was sent in by halfway Did you speak to anyone other than the patient for history (EMS, parent, family, police, friend...)? What history was obtained from this source @ -Chart reviewed from halfway Did you review nursing and triage notes (agree or disagree)? Why? @ -I reviewed and agree with nursing and triage notes Were old charts reviewed (outside hosp., previous admission, EMS record, old EKG, old radiological studies, urgent care reports/EKG's, halfway records)? Report findings @ -Previous charts reviewed including PEG tube replacements. Also reviewed chart from halfway Differential Diagnosis (chest pain, altered mental status, abdominal pain women, abdominal pain men, vaginal bleeding, weakness, fever, dyspnea, syncope, headache, dizziness, GI bleed, back pain, seizure, CVA, palpatations, mental health, musculoskeletal)? @ -Differential Abdominal Pain Men: Appendicitis, cholecystitis, diverticulosis, ischemic bowel, pancreatitis, hepatitis, UTI, gastroenteritis, AAA, incarcerated hernia, bowel obstruction, constipation, inflammatory bowel, hepatitis, peptic ulcer disease, splenic infarction, perforated viscus, testicular torsion, this is not meant to be an all-inclusive list EKG interpreted by me (3pts min.). @ -As above X-rays interpreted by me (1pt min.). @ -None done CT interpreted by me (1pt min.). @ -None done U/S interpreted by me (1pt. min.). @ -None done What testing was considered but not performed or refused? (CT, X-rays, U/S, labs)? Why? @ -None What meds were considered but not given or refused? Why? @ -None Did you discuss the management of the patient with other professionals (professionals i.e. , PA, PUBLISHING AGENT, lab, RT, psych nurse, social security benefits interviewer, ambulatory nurse, teacher, staff combat information center officer, case folder)? Give summary @ -No Was smoking cessation discussed for >3mins.? @ -No Was critical care preformed (if so, how long)? @ -No Were there social determinants of health that impacted care today? How? (Homelessness, low income, unemployed, alcoholism, drug addiction, transportation, low edu. Level, literacy, decrease access to med. care, fpc, rehab)? @ -No Was there de-escalation of care discussed even if they declined (Discuss DNR or withdrawal of care, Hospice)? DNR status @ -No What co-morbidities impacted this encounter? (DM, HTN, Smoking, COPD, CAD, Cancer, CVA, ARF, Chemo, Hep., AIDS, mental health diagnosis, sleep apnea, morbid obesity)? @ -History of PEG tube dependency Was patient admitted / discharged? Hospital course, mention meds given and route, prescriptions, significant lab abnormalities, going to OR and other pertinent info. @ -Patient presents to emergency department for malfunctioning PEG tube secondary to a hole. This was visualized. PEG tube replaced without difficulty. Patient will be discharged to halfway Undiagnosed new problem with uncertain prognosis? @ -No Drug Therapy requiring intensive monitoring for toxicity (Heparin, Nitro, Insulin, Cardizem)? @ -No Were any procedures done? @ -Feeding tube, see above Diagnosis/symptom? @ -Feeding tube malfunction Acute, or Chronic, or Acute on Chronic? @ -Acute Uncomplicated (without systemic symptoms) or Complicated (systemic symptoms)? @ -Default Side effects of treatment? @ -No Exacerbation, Progression, or Severe Exacerbation? @ -No Poses a threat to life or bodily function? How? (Chest pain, [place], [place], pneumonia, PE, COPD, DKA, ARF, appy, cholecystitis, CVA, Diverticulitis, Homicidal, Suicidal, threat to staff... and all critical care pts) @ -No Disposition Clinical Impression: PEG tube malfunction Disposition: HOME SELF-CARE Condition: Stable Instructions (If sedation given, give patient instructions): How to Use and Care for Your PEG Tube (ED) Additional Instructions: Please do follow-up with primary care physician in the next couple of days for recheck. Return for feeding tube not functioning, vomiting, fever, worsening or changing symptoms or other concerns Is patient prescribed a controlled substance at d/c from ED?: No Referrals: DEANGELO NEUMANN MD [Primary Care Provider] - 1-2 days Time of Disposition: 13:37
[2024-07-25 15:26] VITALS: BP 118/78; PULSE 87; RESP 18
== END 2024-07-25 15:24 | disposition home or self-care (01) ==
LOC: EC 10:58
CPT/HCPCS: 43762; 99283

== ENCOUNTER 2024-09-04 04:26 | Inpatient (IN) | payer MEDICARE, OTHER ==
[2024-09-04 04:48] LABS: Anisocytosis Slight; Basophils % (A) 0 %; Eosinophils # (A) 0.4 k/uL (0-0.7); Eosinophils % (A) 3 %; Hypochromasia Marked; Lymphocytes % (A) 9 %; MCH 28.4 pg (25.0-35.0); MCHC 30.7 g/dL (31.0-37.0); MCV 92.6 fL (80.0-100.0); Mean Platelet Volume 9.4; Monocytes # (A) 0.9 k/uL (0-1.0); Monocytes % (A) 7 %; Neutrophils # (A) 9.7 k/uL (1.3-7.7); Neutrophils % (A) 79 %; Platelet Count 232 k/uL (150-450); RBC 6.31 m/uL (4.30-5.90); RDW 16.2 % (11.5-15.5); WBC 12.2 k/uL (3.8-10.6)
[2024-09-04] MEDS: SODIUM CHLORIDE 0.9% 1,000 ML IV STA (04:51)
[2024-09-04] MEDS: SODIUM CHLORIDE 0.9% 1,000 ML IV SCH (04:52)
[2024-09-04 04:56] LABS: HCT 58.5 % (39.0-53.0)
[2024-09-04 04:57] LABS: ALT 96 U/L (4-49); AST 43 U/L (17-59); African American GFR (CKD) 70 (>60 ml/min/1.73 sqM); Alkaline Phosphatase 94 U/L (38-126); Anion Gap 9 mmol/L; Blood Urea Nitrogen 63 mg/dL (9-20); Carbon Dioxide 26 mmol/L (22-30); Chloride 125 mmol/L (98-107); Glucose 137 mg/dL (74-99); Non-African American GFR(CKD) 61 (>60 ml/min/1.73 sqM); Potassium 4.4 mmol/L (3.5-5.1); Sodium 160 mmol/L (137-145); Total Bilirubin 0.4 mg/dL (0.2-1.3); Total Protein 7.5 g/dL (6.3-8.2)
[2024-09-04 04:58] LABS: Partial Thromboplastin Time 23.5 sec (22.0-30.0)
[2024-09-04 05:02] LABS: Appearance,Urine Turbid (Clear); Bacteria,Urine Many /hpf; Bilirubin,Urine Negative (Negative); Blood,Urine Negative (Negative); Color,Urine Yellow; Glucose,Urine (UA) Negative (Negative); Ketones,Urine Negative (Negative); Leukocyte Esterase,Urine Large (Negative); Mucus,Urine Many /hpf; Nitrite,Urine Negative (Negative); Protein,Urine 4+ (Negative); RBC,Urine 70 /hpf (0-5); Specific Gravity,Urine 1.019 (1.001-1.035); Squamous Epithelial Cell,Urine 3 /hpf (0-4); Triple Phosphate Crystal,Urine Many /hpf; WBC,Urine 49 /hpf (0-5)
[2024-09-04 05:06] LABS: NT-Pro-B-Type Natriuretic Pept 642 pg/mL
[2024-09-04] MEDS: DEXTROSE 5% IN WATER 1,000 ML IV SCH (06:19)
[2024-09-04] MEDS ORDERED: NALOXONE 0.4 MG/ML 1 ML VIAL IV PRN (06:44)
--- NOTE | 2024-09-04 06:44 | ED ---
General Adult HPI - General Chief complaint: Shortness of Breath Stated complaint: Unresponsive Time Seen by Provider: 09/04/24 04:30 Source: RN/MD, EMS Mode of arrival: EMS - History of Present Illness Initial comments: 64-year-old male with past medical history of MS, neurogenic bladder with chronic indwelling Stein, PEG tube, nonverbal, paraplegic who presents to the emergency department from extended-care facility. They reported that the patient had had a change in his mental status. They had him hypoxic in the 80s. They did report to a low blood pressure and heart rate. There was concern for sepsis and the patient as he does have history of sepsis several times in the past. Patient is bedbound, nonverbal. He does get frequent urinary tract infections due to the indwelling Stein. He also has a stage II sacral wound. Patient at risk for aspiration. EMS provides history. Patient cannot provide any. Due to this the HPI is limited - Related Data Home Medications Medication Instructions Recorded Confirmed Aspirin 81 mg PEG/G-TUBE DAILY 11/27/20 09/04/24 Acetaminophen Tab [Tylenol] 650 mg PEG/G-TUBE Q4H PRN 06/13/21 09/04/24 Metoprolol Tartrate [Lopressor] 50 mg PEG/G-TUBE BID 06/13/21 09/04/24 carBAMazepine [carBAMazepine Oral 100 mg PEG/G-TUBE TID 07/02/21 09/04/24 Susp] Lactulose 20 gm PEG/G-TUBE TID 01/03/22 09/04/24 Scopolamine [Scopolamine 1 MG/72 1 patch TRANSDERM Q72H 01/03/22 09/04/24 HR patch] oxyBUTYnin chloride 5 mg PEG/G-TUBE TID 12/19/22 09/04/24 Atorvastatin [Lipitor] 40 mg PEG/G-TUBE HS 07/14/23 09/04/24 Famotidine [Pepcid] 20 mg PEG/G-TUBE DAILY 07/14/23 09/04/24 polyethylene glycoL 3350 [Miralax] 17 gm PEG/G-TUBE HS 10/17/23 09/04/24 Ipratropium-Albuterol Nebulize 3 ml INHALATION RT-TID 11/18/23 09/04/24 [Duoneb 0.5 mg-3 mg/3 ml Soln] Lacosamide [Vimpat Oral Soln] 150 mg PEG/G-TUBE BID 11/18/23 09/04/24 lisinopriL [Zestril] 2.5 mg PEG/G-TUBE DAILY 11/18/23 09/04/24 Baclofen 5 mg PEG/G-TUBE TID 07/25/24 09/04/24 Cranberry 450mg 1 tab PEG/G-TUBE DAILY 07/25/24 09/04/24 Prostat 30 ml PEG/G-TUBE DAILY 07/25/24 09/04/24 amantadine HCL [Amantadine] 100 mg PEG/G-TUBE DAILY 07/25/24 09/04/24 bisacodyL [Dulcolax] 10 mg RECTAL DAILY PRN 07/25/24 09/04/24 Allergies Allergy/AdvReac Type Severity Reaction Status Date / Time meropenem [From Merrem] Allergy Rash/Hives Verified 09/04/24 15:04 ceftolozane [From Zerbaxa] AdvReac Rapid Verified 09/04/24 07:32 Heart Rate tazobactam [From Zerbaxa] AdvReac Rapid Verified 09/04/24 07:32 Heart Rate Review of Systems ROS Statement: Those systems with pertinent positive or pertinent negative responses have been documented in the HPI. ROS Other: All systems not noted in ROS Statement are negative. Past Medical History Past Medical History: Deep Vein Thrombosis (DVT), GERD/Reflux, Hypertension, Musculoskeletal Disorder, Neurologic Disorder, Pneumonia, Seizure Disorder, Skin Disorder Additional Past Medical History / Comment(s): Pt diagnosed with MS at the age of 39 yrs, seizure/pneumonia/UTI with sepsis/respirtory failure/vented, cognitive impairment, sister states when he is feeling well he could speak a few words/nod head appropriately/give thumbs up/roll eyes but when ill is nonverbal, pt has dysphagia/NPO with peg tube, contractures, last seizure 07/2020, trigeminal neuralgia, dysarthria/anarthria/neurogenic bladder with IDC-UTIs/sepsis, multiple pneumonias, recent seizure-last one 07/03/20, incontinent of stool, pt has had decubitus ulcer coccyx-sister unsure of skin condition at this time, past anemia r/t heparin/epistaxiis which involved nasal packing/transfusions, DVT bilateral arms, hypoxia, oxygen at 2L/NC, L femoral head fracture History of Any Multi-Drug Resistant Organisms: ESBL, MRSA, Other MDRO Date of last positivie culture/infection: 03/09/21-MRSA; 11/23/19 ESBL-E.coli MDRO Source:: Abdomen-Peg site MRSA; Urine -ESBL Past Surgical History: Tonsillectomy Additional Past Surgical History / Comment(s): Gastrostomy, peg tube, I&D coccyx decubitius, bronchoscopy, bilateral lasik eye surgery. Past Anesthesia/Blood Transfusion Reactions: No Reported Reaction Additional Past Anesthesia/Blood Transfusion Reaction / Comment(s): Pt has received blood in past without reaction. Past Psychological History: Depression Smoking Status: Never smoker Past Alcohol Use History: None Reported Past Drug Use History: None Reported - Past Family History Father Family Medical History: Myocardial Infarction ([place]) Mother Family Medical History: Hypertension, Myocardial Infarction ([place]) Additional Family Medical History / Comment(s): Mother of a [place] at the age of 73 yrs. General Exam Limitations: altered mental status, physical limitation General appearance: lethargic Head exam: Present: atraumatic, normocephalic, normal inspection Eye exam: Present: normal appearance, PERRL, EOMI. Absent: scleral icterus, conjunctival injection, periorbital swelling ENT exam: Present: mucous membranes dry Respiratory exam: Present: rales Cardiovascular Exam: Present: regular rate, normal rhythm, normal heart sounds. Absent: systolic murmur, diastolic murmur, rubs, gallop, clicks GI/Abdominal exam: Present: distended Extremities exam: Present: other (Contractures bilateral lower extremities) Neurological exam: Present: altered Psychiatric exam: Present: flat affect Course Vital Signs 09/04/24 09/04/24 09/04/24 04:27 04:39 04:51 Temperature 98.1 F Pulse Rate 92 97 92 Respiratory 12 18 25 H Rate Blood Pressure 113/80 104/77 98/64 O2 Sat by Pulse 99 96 95 Oximetry 09/04/24 09/04/24 09/04/24 05:10 05:40 06:00 Temperature Pulse Rate 87 83 82 Respiratory 22 24 21 Rate Blood Pressure 92/65 115/79 115/79 O2 Sat by Pulse 97 98 98 Oximetry 09/04/24 09/04/24 09/04/24 06:30 07:31 07:39 Temperature 97.5 F L Pulse Rate 82 80 Respiratory 22 16 Rate Blood Pressure 96/64 96/66 O2 Sat by Pulse 99 100 Oximetry 09/04/24 09/04/24 09/04/24 07:51 08:02 08:45 Temperature Pulse Rate 74 82 93 Respiratory 20 Rate Blood Pressure 122/97 O2 Sat by Pulse 99 Oximetry 09/04/24 09/04/24 09/04/24 10:05 10:30 11:17 Temperature Pulse Rate 88 79 76 Respiratory 18 18 18 Rate Blood Pressure 98/64 116/76 O2 Sat by Pulse 98 98 99 Oximetry 09/04/24 09/04/24 09/04/24 12:12 12:22 12:24 Temperature Pulse Rate 70 80 Respiratory Rate Blood Pressure O2 Sat by Pulse 97 Oximetry 09/04/24 09/04/24 09/04/24 12:56 16:30 17:56 Temperature 97.6 F Pulse Rate 76 69 90 Respiratory 18 18 20 Rate Blood Pressure 106/78 106/62 113/87 O2 Sat by Pulse 99 100 98 Oximetry 09/04/24 09/04/24 09/04/24 19:56 20:08 21:07 Temperature Pulse Rate 92 93 96 Respiratory 18 Rate Blood Pressure 102/70 O2 Sat by Pulse 96 Oximetry 09/05/24 09/05/24 09/05/24 01:38 04:53 08:20 Temperature 98.7 F Pulse Rate 90 90 92 Respiratory 18 20 16 Rate Blood Pressure 111/69 109/80 121/85 O2 Sat by Pulse 94 L 95 98 Oximetry 09/05/24 09/05/24 09/05/24 08:42 08:52 09:05 Temperature Pulse Rate 105 H 103 H 92 Respiratory 22 22 18 Rate Blood Pressure 111/76 O2 Sat by Pulse 98 95 Oximetry 09/05/24 09/05/24 10:05 11:00 Temperature 98.6 F Pulse Rate 87 86 Respiratory 16 20 Rate Blood Pressure 106/64 101/69 O2 Sat by Pulse 95 97 Oximetry Medical Decision Making - Medical Decision Making Was pt. sent in by a medical professional or institution (, PA, [employer], urgent care, hospital, or chcf...) When possible be specific @ -Patient sent in from his rehab facility Did you speak to anyone other than the patient for history (EMS, parent, family, police, friend...)? What history was obtained from this source @ -Spoke with EMS for history Did you review nursing and triage notes (agree or disagree)? Why? @ -I reviewed and agree with nursing and triage notes Were old charts reviewed (outside hosp., previous admission, EMS record, old EKG, old radiological studies, urgent care reports/EKG's, chcf records)? Report findings @ -Reviewed the transfer paperwork from his extended care facility Differential Diagnosis (chest pain, altered mental status, abdominal pain women, abdominal pain men, vaginal bleeding, weakness, fever, dyspnea, syncope, headache, dizziness, GI bleed, back pain, seizure, CVA, palpatations, mental health, musculoskeletal)? @ -Differential Altered Mental Status: Hypoglycemia, DKA, hypercapnia, ETOH, overdose, CO poisoning, trauma, myxedema coma, HTN encephalopathy, infection, encephalitis, psychosis, intercranial hemorrhage, hepatic encephalopathy, meningitis, CVA, this is not meant to be an all-inclusive list EKG interpreted by me (3pts min.). @ -Yes and demonstrates sinus rhythm with a rate of 94. Parable 139. QRS 86. QTc of 390. No acute ST segment elevation. Mild ST depression V4 through V6 X-rays interpreted by me (1pt min.). @ -Yes and demonstrates possible pneumonia CT interpreted by me (1pt min.). @ -None done U/S interpreted by me (1pt. min.). @ -None done What testing was considered but not performed or refused? (CT, X-rays, U/S, labs)? Why? @ -None What meds were considered but not given or refused? Why? @ -None Did you discuss the management of the patient with other professionals (professionals i.e. , PA, [employer], lab, RT, psych nurse, social psychologist, cell support operator, teacher, chief informatics officer, case assistant)? Give summary @ -Spoke with sound physicians for admission Was smoking cessation discussed for >3mins.? @ -No Was critical care preformed (if so, how long)? @ -No Were there social determinants of health that impacted care today? How? (Homelessness, low income, unemployed, alcoholism, drug addiction, transportation, low edu. Level, literacy, decrease access to med. care, alf, rehab)? @ -Patient resides in rehab Was there de-escalation of care discussed even if they declined (Discuss DNR or withdrawal of care, Hospice)? DNR status @ -No What co-morbidities impacted this encounter? (DM, HTN, Smoking, COPD, CAD, Cancer, CVA, ARF, Chemo, Hep., AIDS, mental health diagnosis, sleep apnea, morbid obesity)? @ -MS, bedbound, recurrent sepsis Was patient admitted / discharged? Hospital course, mention meds given and route, prescriptions, significant lab abnormalities, going to OR and other pertinent info. @ -Upon arrival patient seen and evaluated in trauma 2. Thorough history and physical exam was performed. History is obtained from transfer paperwork and EMS as patient cannot provide any. He is hemodynamically stable at this time. IV is established. Laboratory studies are conducted. Chest x-ray was performed. There is concern for pneumonia as well as urinary tract infection. Patient started on linezolid due to previous cultures. I will admit the patient with Dr. Carpenter to consult. Patient admitted to [facility] Undiagnosed new problem with uncertain prognosis? @ -No Drug Therapy requiring intensive monitoring for toxicity (Heparin, Nitro, Insulin, Cardizem)? @ -No Were any procedures done? @ -No Diagnosis/symptom? @ -Acute encephalopathy, subjective hypotension, acute pneumonia, acute UTI Acute, or Chronic, or Acute on Chronic? @ -Acute on chronic Uncomplicated (without systemic symptoms) or Complicated (systemic symptoms)? @ -Complicated Side effects of treatment? @ -No Exacerbation, Progression, or Severe Exacerbation? @ -No Poses a threat to life or bodily function? How? (Chest pain, [place], [place], pneumonia, PE, COPD, DKA, ARF, appy, cholecystitis, CVA, Diverticulitis, Homicidal, Suicidal, threat to staff... and all critical care pts) @ -Yes this patient recurrently comes in with signs of sepsis - Lab Data Result diagrams: 09/06/24 14:19 09/06/24 14:19 Lab Results 09/04/24 09/04/24 09/04/24 Range/Units 04:36 04:36 04:36 WBC 12.2 H (3.8-10.6) k/uL RBC 6.31 H (4.30-5.90) m/uL Hgb 18.0 H (13.0-17.5) gm/dL Hct 58.5 H* (39.0-53.0) % MCV 92.6 (80.0-100.0) fL MCH 28.4 (25.0-35.0) pg MCHC 30.7 L (31.0-37.0) g/dL RDW 16.2 H (11.5-15.5) % Plt Count 232 (150-450) k/uL MPV 9.4 Neutrophils % 79 % Lymphocytes % 9 % Monocytes % 7 % Eosinophils % 3 % Basophils % 0 % Neutrophils # 9.7 H (1.3-7.7) k/uL Lymphocytes # 1.0 (1.0-4.8) k/uL Monocytes # 0.9 (0-1.0) k/uL Eosinophils # 0.4 (0-0.7) k/uL Basophils # 0.0 (0-0.2) k/uL Hypochromasia Marked Anisocytosis Slight ESR (0-20) mm/Hr PT 11.0 (10.0-12.5) sec INR 1.0 (<1.2) APTT 23.5 (22.0-30.0) sec Sodium 160 H (137-145) mmol/L Potassium 4.4 (3.5-5.1) mmol/L Chloride 125 H (98-107) mmol/L Carbon Dioxide 26 (22-30) mmol/L Anion Gap 9 mmol/L BUN 63 H (9-20) mg/dL Creatinine 1.25 (0.66-1.25) mg/dL Est GFR (CKD-EPI)AfAm 70 (>60 ml/min/1.73 sqM) Est GFR (CKD-EPI)NonAf 61 (>60 ml/min/1.73 sqM) Glucose 137 H (74-99) mg/dL Plasma Lactic Acid [place] (0.7-2.0) mmol/L Calcium 9.0 (8.4-10.2) mg/dL Total Bilirubin 0.4 (0.2-1.3) mg/dL AST 43 (17-59) U/L ALT 96 H (4-49) U/L Alkaline Phosphatase 94 (38-126) U/L Troponin I (0.000-0.034) ng/mL NT-Pro-B Natriuret Pep 642 pg/mL Total Protein 7.5 (6.3-8.2) g/dL Albumin 4.0 (3.5-5.0) g/dL Procalcitonin (0.02-0.50) ng/mL Urine Color Urine Appearance (Clear) Urine pH (5.0-8.0) Ur Specific [place] (1.001-1.035) Urine Protein (Negative) Urine Glucose (UA) (Negative) Urine Ketones (Negative) Urine Blood (Negative) Urine Nitrite (Negative) Urine Bilirubin (Negative) Urine Urobilinogen (<2.0) mg/dL Ur Leukocyte Esterase (Negative) Urine RBC (0-5) /hpf Urine WBC (0-5) /hpf Ur Squamous Epith Cells (0-4) /hpf Triple Phos Crystals (None) /hpf Urine Bacteria (None) /hpf Urine Mucus (None) /hpf Carbamazepine 8.2 (4.0-12.0) UG/ML Influenza Type A (PCR) (Not Detectd) Influenza Type B (PCR) (Not Detectd) RSV (PCR) (Not Detectd) SARS-CoV-2 (PCR) (Not Detectd) 09/04/24 09/04/24 09/04/24 Range/Units 04:36 04:36 04:36 WBC (3.8-10.6) k/uL RBC (4.30-5.90) m/uL Hgb (13.0-17.5) gm/dL Hct (39.0-53.0) % MCV (80.0-100.0) fL MCH (25.0-35.0) pg MCHC (31.0-37.0) g/dL RDW (11.5-15.5) % Plt Count (150-450) k/uL MPV Neutrophils % % Lymphocytes % % Monocytes % % Eosinophils % % Basophils % % Neutrophils # (1.3-7.7) k/uL Lymphocytes # (1.0-4.8) k/uL Monocytes # (0-1.0) k/uL Eosinophils # (0-0.7) k/uL Basophils # (0-0.2) k/uL Hypochromasia Anisocytosis ESR 50 H (0-20) mm/Hr PT (10.0-12.5) sec INR (<1.2) APTT (22.0-30.0) sec Sodium (137-145) mmol/L Potassium (3.5-5.1) mmol/L Chloride (98-107) mmol/L Carbon Dioxide (22-30) mmol/L Anion Gap mmol/L BUN (9-20) mg/dL Creatinine (0.66-1.25) mg/dL Est GFR (CKD-EPI)AfAm (>60 ml/min/1.73 sqM) Est GFR (CKD-EPI)NonAf (>60 ml/min/1.73 sqM) Glucose (74-99) mg/dL Plasma Lactic Acid [place] 1.7 (0.7-2.0) mmol/L Calcium (8.4-10.2) mg/dL Total Bilirubin (0.2-1.3) mg/dL AST (17-59) U/L ALT (4-49) U/L Alkaline Phosphatase (38-126) U/L Troponin I 0.053 H* (0.000-0.034) ng/mL NT-Pro-B Natriuret Pep pg/mL Total Protein (6.3-8.2) g/dL Albumin (3.5-5.0) g/dL Procalcitonin (0.02-0.50) ng/mL Urine Color Urine Appearance (Clear) Urine pH (5.0-8.0) Ur Specific [place] (1.001-1.035) Urine Protein (Negative) Urine Glucose (UA) (Negative) Urine Ketones (Negative) Urine Blood (Negative) Urine Nitrite (Negative) Urine Bilirubin (Negative) Urine Urobilinogen (<2.0) mg/dL Ur Leukocyte Esterase (Negative) Urine RBC (0-5) /hpf Urine WBC (0-5) /hpf Ur Squamous Epith Cells (0-4) /hpf Triple Phos Crystals (None) /hpf Urine Bacteria (None) /hpf Urine Mucus (None) /hpf Carbamazepine (4.0-12.0) UG/ML Influenza Type A (PCR) (Not Detectd) Influenza Type B (PCR) (Not Detectd) RSV (PCR) (Not Detectd) SARS-CoV-2 (PCR) (Not Detectd) 12/05/24 12/05/24 12/05/24 Range/Units 04:36 04:43 05:34 WBC (3.8-10.6) k/uL RBC (4.30-5.90) m/uL Hgb (13.0-17.5) gm/dL Hct (39.0-53.0) % MCV (80.0-100.0) fL MCH (25.0-35.0) pg MCHC (31.0-37.0) g/dL RDW (11.5-15.5) % Plt Count (150-450) k/uL MPV Neutrophils % % Lymphocytes % % Monocytes % % Eosinophils % % Basophils % % Neutrophils # (1.3-7.7) k/uL Lymphocytes # (1.0-4.8) k/uL Monocytes # (0-1.0) k/uL Eosinophils # (0-0.7) k/uL Basophils # (0-0.2) k/uL Hypochromasia Anisocytosis ESR (0-20) mm/Hr PT (10.0-12.5) sec INR (<1.2) APTT (22.0-30.0) sec Sodium (137-145) mmol/L Potassium (3.5-5.1) mmol/L Chloride (98-107) mmol/L Carbon Dioxide (22-30) mmol/L Anion Gap mmol/L BUN (9-20) mg/dL Creatinine (0.66-1.25) mg/dL Est GFR (CKD-EPI)AfAm (>60 ml/min/1.73 sqM) Est GFR (CKD-EPI)NonAf (>60 ml/min/1.73 sqM) Glucose (74-99) mg/dL Plasma Lactic Acid [place] (0.7-2.0) mmol/L Calcium (8.4-10.2) mg/dL Total Bilirubin (0.2-1.3) mg/dL AST (17-59) U/L ALT (4-49) U/L Alkaline Phosphatase (38-126) U/L Troponin I (0.000-0.034) ng/mL NT-Pro-B Natriuret Pep pg/mL Total Protein (6.3-8.2) g/dL Albumin (3.5-5.0) g/dL Procalcitonin 0.45 (0.02-0.50) ng/mL Urine Color Yellow Urine Appearance Turbid (Clear) Urine pH 8.0 (5.0-8.0) Ur Specific [place] 1.019 (1.001-1.035) Urine Protein 4+ H (Negative) Urine Glucose (UA) Negative (Negative) Urine Ketones Negative (Negative) Urine Blood Negative (Negative) Urine Nitrite Negative (Negative) Urine Bilirubin Negative (Negative) Urine Urobilinogen 2.0 (<2.0) mg/dL Ur Leukocyte Esterase Large H (Negative) Urine RBC 70 H (0-5) /hpf Urine WBC 49 H (0-5) /hpf Ur Squamous Epith Cells 3 (0-4) /hpf Triple Phos Crystals Many H (None) /hpf Urine Bacteria Many H (None) /hpf Urine Mucus Many H (None) /hpf Carbamazepine (4.0-12.0) UG/ML Influenza Type A (PCR) Not Detected (Not Detectd) Influenza Type B (PCR) Not Detected (Not Detectd) RSV (PCR) Not Detected (Not Detectd) SARS-CoV-2 (PCR) Not Detected (Not Detectd) 09/04/24 Range/Units 05:54 WBC (3.8-10.6) k/uL RBC (4.30-5.90) m/uL Hgb (13.0-17.5) gm/dL Hct (39.0-53.0) % MCV (80.0-100.0) fL MCH (25.0-35.0) pg MCHC (31.0-37.0) g/dL RDW (11.5-15.5) % Plt Count (150-450) k/uL MPV Neutrophils % % Lymphocytes % % Monocytes % % Eosinophils % % Basophils % % Neutrophils # (1.3-7.7) k/uL Lymphocytes # (1.0-4.8) k/uL Monocytes # (0-1.0) k/uL Eosinophils # (0-0.7) k/uL Basophils # (0-0.2) k/uL Hypochromasia Anisocytosis ESR (0-20) mm/Hr PT (10.0-12.5) sec INR (<1.2) APTT (22.0-30.0) sec Sodium 158 H (137-145) mmol/L Potassium (3.5-5.1) mmol/L Chloride (98-107) mmol/L Carbon Dioxide (22-30) mmol/L Anion Gap mmol/L BUN (9-20) mg/dL Creatinine (0.66-1.25) mg/dL Est GFR (CKD-EPI)AfAm (>60 ml/min/1.73 sqM) Est GFR (CKD-EPI)NonAf (>60 ml/min/1.73 sqM) Glucose (74-99) mg/dL Plasma Lactic Acid [place] (0.7-2.0) mmol/L Calcium (8.4-10.2) mg/dL Total Bilirubin (0.2-1.3) mg/dL AST (17-59) U/L ALT (4-49) U/L Alkaline Phosphatase (38-126) U/L Troponin I (0.000-0.034) ng/mL NT-Pro-B Natriuret Pep pg/mL Total Protein (6.3-8.2) g/dL Albumin (3.5-5.0) g/dL Procalcitonin (0.02-0.50) ng/mL Urine Color Urine Appearance (Clear) Urine pH (5.0-8.0) Ur Specific [place] (1.001-1.035) Urine Protein (Negative) Urine Glucose (UA) (Negative) Urine Ketones (Negative) Urine Blood (Negative) Urine Nitrite (Negative) Urine Bilirubin (Negative) Urine Urobilinogen (<2.0) mg/dL Ur Leukocyte Esterase (Negative) Urine RBC (0-5) /hpf Urine WBC (0-5) /hpf Ur Squamous Epith Cells (0-4) /hpf Triple Phos Crystals (None) /hpf Urine Bacteria (None) /hpf Urine Mucus (None) /hpf Carbamazepine (4.0-12.0) UG/ML Influenza Type A (PCR) (Not Detectd) Influenza Type B (PCR) (Not Detectd) RSV (PCR) (Not Detectd) SARS-CoV-2 (PCR) (Not Detectd) Disposition Clinical Impression: Pressure injury of sacral region, stage 2, Multiple sclerosis, primary progressive, Sepsis, ESBL (extended spectrum beta-lactamase) producing bacteria infection, UTI (urinary tract infection) due to urinary indwelling catheter, Encephalopathy acute, Hypernatremia Disposition: ADMITTED IP TO THIS HOSP Condition: Serious Is patient prescribed a controlled substance at d/c from ED?: No Time of Disposition: 06:44 Decision to Admit Reason: Admit from EC Decision Date: 09/04/24 Decision Time: 06:44
[2024-09-04] MEDS: LINEZOLID 600 MG in DEXTROSE/WATER 1 300ML.BAG IVPB STA (07:38)
[2024-09-04] MEDS: IPRATROPIUM-ALBUTEROL 3 ML NEB INHALATION STA (07:50)
[2024-09-04] MEDS: IPRATROPIUM-ALBUTEROL 3 ML NEB INHALATION SCH (07:50)
--- NOTE | 2024-09-04 07:54 | XR ---
EXAMINATION TYPE: XR chest 1V portable DATE OF EXAM: 09/04/2024 4:58 AM COMPARISON: 11/18/2023 CLINICAL INDICATION: Male, 64 years old with history of sob, , FINDINGS: Heart upper limits of normal in size. Mild interstitial prominence. Some strandy density probably ate lectasis at the right base. No casi consolidation or sizable pleural effusion. IMPRESSION: Correlate for CHF with pulmonary vascular congestion. [facility], , 09/04/2024 7:51 AM
[2024-09-04] MEDS: SCOPOLAMINE 1 MG/72 HR PATCH TRANSDERM SCH (08:20)
[2024-09-04] MEDS: BACLOFEN 10 MG TAB PEG/G-TUBE SCH (08:24)
[2024-09-04] MEDS: ASPIRIN 81 MG PEG/G-TUBE SCH (08:24)
[2024-09-04] MEDS: oxyBUTYnin chloride 5 MG TAB PEG/G-TUBE SCH (08:25)
[2024-09-04] MEDS: LACTULOSE 20 GM/30 ML CUP PEG/G-TUBE SCH (08:25)
[2024-09-04] MEDS: METOPROLOL TARTRATE 50 MG TAB PEG/G-TUBE SCH (08:25)
[2024-09-04] MEDS: FAMOTIDINE 20 MG TAB PEG/G-TUBE SCH (08:25)
[2024-09-04 09:34] LABS: Carbamazepine (Tegretol) 8.2 UG/ML (4.0-12.0)
[2024-09-04] MEDS: SODIUM CHLORIDE 0.45% 1,000 ML IV SCH ×2 (10:14→16:48)
[2024-09-04] MEDS: Lacosamide IV (ages 17+ yrs) 200 MG/20 ML ML IVP SCH (10:30)
--- NOTE | 2024-09-04 11:05 | P.NPCON ---
History of Present Illness - Reason for Consult hypernatremia - History of Present Illness Reason for consultation: Hyponatremia History of present illness: Patient is a 64-year-old male seen in renal consultation for hyponatremia. Patient is a poor historian. History was obtained mostly from the chart. Patient presents from an ECF due to altered mental status. Patient has a chronic Stein catheter and also PEG tube. Patient is nonverbal. Sodium level was 160 on admission at 4:36 AM this morning and was 158 at 554 this morning. He received a liter bolus of normal saline and is currently maintained on D5W at 100 cc an hour. Creatinine 1.25. It is noted the patient was found to be hypoxic with oxygen saturation in the 80s and was also noted to be hypotensive and tachycardic. He received IV antibiotics in the ER. Cultures have been ordered. He is receiving lisinopril. I do not see any NSAIDs on his home medication list. Vital signs are stable. General: No acute distress. HEENT: Head exam is unremarkable. On nasal cannula. LUNGS: No audible rhonchi or wheezes. HEART: Rate and Rhythm are regular. ABDOMEN: No distention. EXTREMITITES: No edema. Past Medical History Past Medical History: Deep Vein Thrombosis (DVT), GERD/Reflux, Hypertension, Musculoskeletal Disorder, Neurologic Disorder, Pneumonia, Seizure Disorder, Skin Disorder Additional Past Medical History / Comment(s): Pt diagnosed with MS at the age of 39 yrs, seizure/pneumonia/UTI with sepsis/respirtory failure/vented, cognitive impairment, sister states when he is feeling well he could speak a few words/nod head appropriately/give thumbs up/roll eyes but when ill is nonverbal, pt has dysphagia/NPO with peg tube, contractures, last seizure 07/2020, trigeminal neuralgia, dysarthria/anarthria/neurogenic bladder with IDC-UTIs/sepsis, multiple pneumonias, recent seizure-last one 07/03/20, incontinent of stool, pt has had decubitus ulcer coccyx-sister unsure of skin condition at this time, past anemia r/t heparin/epistaxiis which involved nasal packing/transfusions, DVT bilateral arms, hypoxia, oxygen at 2L/NC, L femoral head fracture History of Any Multi-Drug Resistant Organisms: ESBL, MRSA, Other MDRO Date of last positivie culture/infection: 03/09/21-MRSA; 11/23/19 ESBL-E.coli MDRO Source:: Abdomen-Peg site MRSA; Urine -ESBL Past Surgical History: Tonsillectomy Additional Past Surgical History / Comment(s): Gastrostomy, peg tube, I&D coccyx decubitius, bronchoscopy, bilateral lasik eye surgery. Past Anesthesia/Blood Transfusion Reactions: No Reported Reaction Additional Past Anesthesia/Blood Transfusion Reaction / Comment(s): Pt has received blood in past without reaction. Past Psychological History: Depression Smoking Status: Never smoker Past Alcohol Use History: None Reported Past Drug Use History: None Reported - Past Family History Father Family Medical History: Myocardial Infarction ([place]) Mother Family Medical History: Hypertension, Myocardial Infarction ([place]) Additional Family Medical History / Comment(s): Mother of a [place] at the age of 73 yrs. Medications and Allergies Home Medications Medication Instructions Recorded Confirmed Type Aspirin 81 mg PEG/G-TUBE DAILY 11/27/20 09/04/24 History Acetaminophen Tab [Tylenol] 650 mg PEG/G-TUBE Q4H PRN 06/13/21 09/04/24 History Metoprolol Tartrate [Lopressor] 50 mg PEG/G-TUBE BID 06/13/21 09/04/24 History carBAMazepine [carBAMazepine Oral 100 mg PEG/G-TUBE TID 07/02/21 09/04/24 History Susp] Lactulose 20 gm PEG/G-TUBE TID 01/03/22 09/04/24 History Scopolamine [Scopolamine 1 MG/72 1 patch TRANSDERM Q72H 01/03/22 09/04/24 History HR patch] oxyBUTYnin chloride 5 mg PEG/G-TUBE TID 12/19/22 09/04/24 History Atorvastatin [Lipitor] 40 mg PEG/G-TUBE HS 07/14/23 09/04/24 History Famotidine [Pepcid] 20 mg PEG/G-TUBE DAILY 07/14/23 09/04/24 History polyethylene glycoL 3350 [Miralax] 17 gm PEG/G-TUBE HS 10/17/23 09/04/24 History Ipratropium-Albuterol Nebulize 3 ml INHALATION RT-TID 11/18/23 09/04/24 History [Duoneb 0.5 mg-3 mg/3 ml Soln] Lacosamide [Vimpat Oral Soln] 150 mg PEG/G-TUBE BID 11/18/23 09/04/24 History lisinopriL [Zestril] 2.5 mg PEG/G-TUBE DAILY 11/18/23 09/04/24 History Baclofen 5 mg PEG/G-TUBE TID 07/25/24 09/04/24 History Cranberry 450mg 1 tab PEG/G-TUBE DAILY 07/25/24 09/04/24 History Prostat 30 ml PEG/G-TUBE DAILY 07/25/24 09/04/24 History amantadine HCL [Amantadine] 100 mg PEG/G-TUBE DAILY 07/25/24 09/04/24 History bisacodyL [Dulcolax] 10 mg RECTAL DAILY PRN 07/25/24 09/04/24 History Allergies Allergy/AdvReac Type Severity Reaction Status Date / Time meropenem [From Merrem] Allergy Rash/Hives Verified 09/04/24 07:32 ceftolozane [From Zerbaxa] AdvReac Rapid Verified 09/04/24 07:32 Heart Rate tazobactam [From Zerbaxa] AdvReac Rapid Verified 09/04/24 07:32 Heart Rate Physical Exam Vitals: Vital Signs Temp Pulse Resp BP Pulse Ox 09/04/24 10:30 79 18 98 09/04/24 10:05 88 18 98/64 98 09/04/24 08:45 93 20 122/97 99 09/04/24 08:02 82 09/04/24 07:51 74 09/04/24 07:39 97.5 F L 09/04/24 07:31 80 16 96/66 100 09/04/24 06:30 82 22 96/64 99 09/04/24 06:00 82 21 115/79 98 09/04/24 05:40 83 24 115/79 98 09/04/24 05:10 87 22 92/65 97 09/04/24 04:51 92 25 H 98/64 95 09/04/24 04:39 97 18 104/77 96 09/04/24 04:27 98.1 F 92 12 113/80 99 Intake and Output 09/03/24 09/04/24 09/04/24 22:59 06:59 14:59 Other: Weight 87.861 kg Results - Lab Results Most recent lab results Calcium 9.0 mg/dL (8.4-10.2) 09/04/24 04:36 09/04/24 04:36 09/04/24 05:54 Assessment and Plan Plan: Assessment: 1. Hypernatremia from lack of oral water intake. Sodium level 160 on admission and repeat 158 this morning at 5:54 AM. 2. Acute kidney injury secondary to vasomotor nephropathy from hypovolemia. Creatinine 1.25 on admission. 3. Acute hypoxic respiratory failure. On 3 L nasal cannula. Improved. 4. Paraplegia with chronic Stein catheter. Plan: Maintain D5W at 100 cc an hour. Repeat sodium level at noon. Follow-up cultures. Change Stein catheter. Discussed with RN. Stop lisinopril. Avoid nephrotoxins. Continue to monitor renal function and urine output. Thank you for the consultation. I will continue to follow the patient with you during his hospital stay.
--- NOTE | 2024-09-04 12:58 | P.HPIM ---
History of Present Illness H&P Date: 09/04/24 Chief Complaint: Altered mental status Chris is a 64-year-old male with past medical history of multiple sclerosis, functional quadriplegia, chronic indwelling Aggarwal catheter history of PEG tube placement and. History is limited due to the patient's mentation. The patient is unable to provide a history. Most of the history was obtained through the chart review and from discussion with the ER staff. The patient resides at a extended care facility. It was noted that the patient had a change of altered mental status and additionally was noted the patient was hypoxic in the 80% range. He had then present to the hospital further evaluation. Will need present to the hospital it appears that he was 99% on a nonrebreather but this was later transitioned to nasal cannula where he was saturating 96% on 3 L. He was hemodynamically stable and was afebrile. Lab work had shown a white blood cell count 12.2, hemoglobin was 18, hematocrit was 58.5. Platelet count was 232. INR was 1.0. CMP has shown a sodium of 160, chloride was 125 BUN was 63 with a creatinine 1.25. Initial troponin 0.05 with subsequent 0.43. Urinalysis had revealed pyuria. There was evidence of proteinuria on UA. Carbamazepine level was noted be 8.2. Flu a flu B RSV are negative. Chest x- ray had revealed vascular congestion. The patient was then admitted given his hypernatremia. He was given a dose of IV linezolid by the ER given concern for cystitis. I am unclear but it appears that the UA was obtained prior to a Aggarwal catheter exchange Review of Systems ROS unobtainable: due to mental status Past Medical History Past Medical History: Deep Vein Thrombosis (DVT), GERD/Reflux, Hypertension, Musculoskeletal Disorder, Neurologic Disorder, Pneumonia, Seizure Disorder, Skin Disorder Additional Past Medical History / Comment(s): Pt diagnosed with MS at the age of 39 yrs, seizure/pneumonia/UTI with sepsis/respirtory failure/vented, cognitive impairment, sister states when he is feeling well he could speak a few words/nod head appropriately/give thumbs up/roll eyes but when ill is nonverbal, pt has dysphagia/NPO with peg tube, contractures, last seizure 07/2020, trigeminal neuralgia, dysarthria/anarthria/neurogenic bladder with IDC-UTIs/sepsis, multiple pneumonias, recent seizure-last one 07/03/20, incontinent of stool, pt has had decubitus ulcer coccyx-sister unsure of skin condition at this time, past anemia r/t heparin/epistaxiis which involved nasal packing/transfusions, DVT bilateral arms, hypoxia, oxygen at 2L/NC, L femoral head fracture History of Any Multi-Drug Resistant Organisms: ESBL, MRSA, Other MDRO Date of last positivie culture/infection: 03/09/21-MRSA; 11/23/19 ESBL-E.coli MDRO Source:: Abdomen-Peg site MRSA; Urine -ESBL Past Surgical History: Tonsillectomy Additional Past Surgical History / Comment(s): Gastrostomy, peg tube, I&D coccyx decubitius, bronchoscopy, bilateral lasik eye surgery. Past Anesthesia/Blood Transfusion Reactions: No Reported Reaction Additional Past Anesthesia/Blood Transfusion Reaction / Comment(s): Pt has received blood in past without reaction. Past Psychological History: Depression Smoking Status: Never smoker Past Alcohol Use History: None Reported Past Drug Use History: None Reported - Past Family History Father Family Medical History: Myocardial Infarction ([place]) Mother Family Medical History: Hypertension, Myocardial Infarction ([place]) Additional Family Medical History / Comment(s): Mother of a [place] at the age of 73 yrs. Medications and Allergies Home Medications Medication Instructions Recorded Confirmed Type Aspirin 81 mg PEG/G-TUBE DAILY 11/27/20 09/04/24 History Acetaminophen Tab [Tylenol] 650 mg PEG/G-TUBE Q4H PRN 06/13/21 09/04/24 History Metoprolol Tartrate [Lopressor] 50 mg PEG/G-TUBE BID 06/13/21 09/04/24 History carBAMazepine [carBAMazepine Oral 100 mg PEG/G-TUBE TID 07/02/21 09/04/24 History Susp] Lactulose 20 gm PEG/G-TUBE TID 01/03/22 09/04/24 History Scopolamine [Scopolamine 1 MG/72 1 patch TRANSDERM Q72H 01/03/22 09/04/24 Hi story HR patch] oxyBUTYnin chloride 5 mg PEG/G-TUBE TID 12/19/22 09/04/24 History Atorvastatin [Lipitor] 40 mg PEG/G-TUBE HS 07/14/23 09/04/24 History Famotidine [Pepcid] 20 mg PEG/G-TUBE DAILY 07/14/23 09/04/24 History polyethylene glycoL 3350 [Miralax] 17 gm PEG/G-TUBE HS 10/17/23 09/04/24 History Ipratropium-Albuterol Nebulize 3 ml INHALATION RT-TID 11/18/23 09/04/24 History [Duoneb 0.5 mg-3 mg/3 ml Soln] Lacosamide [Vimpat Oral Soln] 150 mg PEG/G-TUBE BID 11/18/23 09/04/24 History lisinopriL [Zestril] 2.5 mg PEG/G-TUBE DAILY 11/18/23 09/04/24 History Baclofen 5 mg PEG/G-TUBE TID 07/25/24 09/04/24 History Cranberry 450mg 1 tab PEG/G-TUBE DAILY 07/25/24 09/04/24 History Prostat 30 ml PEG/G-TUBE DAILY 07/25/24 09/04/24 History amantadine HCL [Amantadine] 100 mg PEG/G-TUBE DAILY 07/25/24 09/04/24 History bisacodyL [Dulcolax] 10 mg RECTAL DAILY PRN 07/25/24 09/04/24 History Allergies Allergy/AdvReac Type Severity Reaction Status Date / Time meropenem [From Merrem] Allergy Rash/Hives Verified 09/04/24 07:32 ceftolozane [From Zerbaxa] AdvReac Rapid Verified 09/04/24 07:32 Heart Rate tazobactam [From Zerbaxa] AdvReac Rapid Verified 09/04/24 07:32 Heart Rate Physical Exam Vitals: Vital Signs Temp Pulse Resp BP Pulse Ox 09/04/24 12:24 97 09/04/24 12:22 80 09/04/24 12:12 70 09/04/24 11:17 76 18 116/76 99 09/04/24 10:30 79 18 98 09/04/24 10:05 88 18 98/64 98 09/04/24 08:45 93 20 122/97 99 09/04/24 08:02 82 09/04/24 07:51 74 09/04/24 07:39 97.5 F L 09/04/24 07:31 80 16 96/66 100 09/04/24 06:30 82 22 96/64 99 09/04/24 06:00 82 21 115/79 98 09/04/24 05:40 83 24 115/79 98 09/04/24 05:10 87 22 92/65 97 09/04/24 04:51 92 25 H 98/64 95 09/04/24 04:39 97 18 104/77 96 09/04/24 04:27 98.1 F 92 12 113/80 99 Intake and Output 09/03/24 09/04/24 09/04/24 22:59 06:59 14:59 Other: Weight 87.861 kg General: male appears stated age. awake but not following any commands Derm: warm, dry Head: atraumatic, normocephalic, symmetric Eyes: EOMI, no lid lag, anicteric sclera, pupils equal round reactive to light ENT: Nose and ears atraumatic, no thrush, no pharyngeal erythema Neck: No thyromegaly, no cervical lymphadenopathy, trachea midline, supple Mouth: no lip lesion, mucus membranes moist Cardiovascular: S1S2 reg, no murmur, p Lungs: clear to ascultation bilateral, no ronchi, no rales, no wheeze, no accessory muscle use on 2 L NC Abdominal: soft, nontender to palpation, no guarding, no appreciable organomegaly, normal bowel sounds, peg tube noted Ext: ble appear contracted Neuro: awake but not following any commands. Psych: calm Results CBC & Chem 7: 09/04/24 04:36 09/04/24 05:54 Labs: Abnormal Lab Results - Last 24 Hours (Table) 09/04/24 09/04/24 09/04/24 Range/Units 04:36 04:36 04:36 WBC 12.2 H (3.8-10.6) k/uL RBC 6.31 H (4.30-5.90) m/uL Hgb 18.0 H (13.0-17.5) gm/dL Hct 58.5 H* (39.0-53.0) % MCHC 30.7 L (31.0-37.0) g/dL RDW 16.2 H (11.5-15.5) % Neutrophils # 9.7 H (1.3-7.7) k/uL Sodium 160 H (137-145) mmol/L Chloride 125 H (98-107) mmol/L BUN 63 H (9-20) mg/dL Glucose 137 H (74-99) mg/dL ALT 96 H (4-49) U/L Troponin I 0.053 H* (0.000-0.034) ng/mL C-Reactive Protein (<1.0) mg/dL Urine Protein (Negative) Ur Leukocyte Esterase (Negative) Urine RBC (0-5) /hpf Urine WBC (0-5) /hpf Triple Phos Crystals (None) /hpf Urine Bacteria (None) /hpf Urine Mucus (None) /hpf 09/04/24 09/04/24 09/04/24 Range/Units 04:43 05:54 10:57 WBC (3.8-10.6) k/uL RBC (4.30-5.90) m/uL Hgb (13.0-17.5) gm/dL Hct (39.0-53.0) % MCHC (31.0-37.0) g/dL RDW (11.5-15.5) % Neutrophils # (1.3-7.7) k/uL Sodium 158 H (137-145) mmol/L Chloride (98-107) mmol/L BUN (9-20) mg/dL Glucose (74-99) mg/dL ALT (4-49) U/L Troponin I 0.045 H* (0.000-0.034) ng/mL C-Reactive Protein (<1.0) mg/dL Urine Protein 4+ H (Negative) Ur Leukocyte Esterase Large H (Negative) Urine RBC 70 H (0-5) /hpf Urine WBC 49 H (0-5) /hpf Triple Phos Crystals Many H (None) /hpf Urine Bacteria Many H (None) /hpf Urine Mucus Many H (None) /hpf 09/04/24 Range/Units 10:57 WBC (3.8-10.6) k/uL RBC (4.30-5.90) m/uL Hgb (13.0-17.5) gm/dL Hct (39.0-53.0) % MCHC (31.0-37.0) g/dL RDW (11.5-15.5) % Neutrophils # (1.3-7.7) k/uL Sodium (137-145) mmol/L Chloride (98-107) mmol/L BUN (9-20) mg/dL Glucose (74-99) mg/dL ALT (4-49) U/L Troponin I (0.000-0.034) ng/mL C-Reactive Protein 1.3 H (<1.0) mg/dL Urine Protein (Negative) Ur Leukocyte Esterase (Negative) Urine RBC (0-5) /hpf Urine WBC (0-5) /hpf Triple Phos Crystals (None) /hpf Urine Bacteria (None) /hpf Urine Mucus (None) /hpf Assessment and Plan Assessment: #) Hypernatremia, likely from lack of free water intake. Unclear of the patient's home enteral feeding regimen but would recommend to increase volume of free water flushes. Continue d5w at 100 cc/hr today. monitor na levels #) acute metabolic encephalopathy likely from electrolyte derangements. continue serial neuro checks #) ?Hypoxia etiology appears unclear. cxr negative for infiltrate. rsv/covid-19 negative. monitor ability to tolerate secretions. supplemental NC as tolerates #) Sacral ulcer. Wound care team evaluation #) Questionable cystitis. UA obtained prior to aggarwal catheter exchange. May simply represent aggarwal bag colonization. Received a dose of iv linezolid in the er. Reported allergies to numerous medications as per chart review #) Multiple sclerosis, severe. 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
--- NOTE | 2024-09-04 16:08 | P.CONS ---
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 and history of recurrent catheter assisted UTI as well as pneumonia patient has been sent to the ER from the local residential for evaluation of mental status changes patient appeared he was noted to be hypoxic with O2 sats in the 80s did have low blood pressure and elevated heart rate for the patient has been transferred to [place] reported in ER on arrival to the ER the patient was afebrile no significant tachycardia he was not h ypotensive no O2 sats on room air documented he is currently 99% on 2 L current oxygen patient did have a white count of 12.2 with a left shift creatinine is 1.25 troponin mildly elevated to have significantly positive UA influenza RSV COVID testing was negative patient did have a chest x-ray correlate for CHF and pulmonary vascular congestion nursing staff mention he did have a significantly called urine when they were changing his Stein catheter and there was some purulent material as well patient was given a dose of Invanz because of multiple antibiotic allergies infectious disease was consulted for further management most information has been obtained from review of the chart as the patient cannot provide any history no family member at the bedside Review of Systems Positive points has been mentioned in HPI complete review could not be obtained because of his underlying mental status Past Medical History Past Medical History: Deep Vein Thrombosis (DVT), GERD/Reflux, Hypertension, Musculoskeletal Disorder, Neurologic Disorder, Pneumonia, Seizure Disorder, Skin Disorder Additional Past Medical History / Comment(s): Pt diagnosed with MS at the age of 39 yrs, seizure/pneumonia/UTI with sepsis/respirtory failure/vented, cognitive impairment, sister states when he is feeling well he could speak a few words/nod head appropriately/give thumbs up/roll eyes but when ill is nonverbal, pt has dysphagia/NPO with peg tube, contractures, last seizure 07/2020, trigeminal neuralgia, dysarthria/anarthria/neurogenic bladder with IDC-UTIs/sepsis, multiple pneumonias, recent seizure-last one 07/03/20, incontinent of stool, pt has had decubitus ulcer coccyx-sister unsure of skin condition at this time, past anemia r/t heparin/epistaxiis which involved nasal packing/transfusions, DVT bilateral arms, hypoxia, oxygen at 2L/NC, L femoral head fracture History of Any Multi-Drug Resistant Organisms: ESBL, MRSA, Other MDRO Year Discovered:: 03/09/21-MRSA; 11/23/19 ESBL-E.coli MDRO Source:: Abdomen-Peg site MRSA; Urine -ESBL Past Surgical History: Tonsillectomy Additional Past Surgical History / Comment(s): Gastrostomy, peg tube, I&D coccyx decubitius, bronchoscopy, bilateral lasik eye surgery. Past Anesthesia/Blood Transfusion Reactions: No Reported Reaction Additional Past Anesthesia/Blood Transfusion Reaction / Comm: Pt has received blood in past without reaction. Past Psychological History: Depression Smoking Status: Never smoker Past Alcohol Use History: None Reported Past Drug Use History: None Reported - Past Family History Father Family Medical History: Myocardial Infarction (MS) Mother Family Medical History: Hypertension, Myocardial Infarction (MS) Additional Family Medical History / Comment(s): Mother of a MS at the age of 73 yrs. Medications and Allergies Home Medications Medication Instructions Recorded Confirmed Type Aspirin 81 mg PEG/G-TUBE DAILY 11/27/20 09/04/24 History Acetaminophen Tab [Tylenol] 650 mg PEG/G-TUBE Q4H PRN 06/13/21 09/04/24 History Metoprolol Tartrate [Lopressor] 50 mg PEG/G-TUBE BID 06/13/21 09/04/24 History carBAMazepine [carBAMazepine Oral 100 mg PEG/G-TUBE TID 07/02/21 09/04/24 History Susp] Lactulose 20 gm PEG/G-TUBE TID 01/03/22 09/04/24 History Scopolamine [Scopolamine 1 MG/72 1 patch TRANSDERM Q72H 01/03/22 09/04/24 History HR patch] oxyBUTYnin chloride 5 mg PEG/G-TUBE TID 12/19/22 09/04/24 History Atorvastatin [Lipitor] 40 mg PEG/G-TUBE HS 07/14/23 09/04/24 History Famotidine [Pepcid] 20 mg PEG/G-TUBE DAILY 07/14/23 09/04/24 History polyethylene glycoL 3350 [Miralax] 17 gm PEG/G-TUBE HS 10/17/23 09/04/24 History Ipratropium-Albuterol Nebulize 3 ml INHALATION RT-TID 11/18/23 09/04/24 History [Duoneb 0.5 mg-3 mg/3 ml Soln] Lacosamide [Vimpat Oral Soln] 150 mg PEG/G-TUBE BID 11/18/23 09/04/24 History lisinopriL [Zestril] 2.5 mg PEG/G-TUBE DAILY 11/18/23 09/04/24 History Baclofen 5 mg PEG/G-TUBE TID 07/25/24 09/04/24 History Cranberry 450mg 1 tab PEG/G-TUBE DAILY 07/25/24 09/04/24 History Prostat 30 ml PEG/G-TUBE DAILY 07/25/24 09/04/24 History amantadine HCL [Amantadine] 100 mg PEG/G-TUBE DAILY 07/25/24 09/04/24 History bisacodyL [Dulcolax] 10 mg RECTAL DAILY PRN 07/25/24 09/04/24 History Allergies Allergy/AdvReac Type Severity Reaction Status Date / Time meropenem [From Merrem] Allergy Rash/Hives Verified 09/04/24 15:04 ceftolozane [From Zerbaxa] AdvReac Rapid Verified 09/04/24 07:32 Heart Rate tazobactam [From Zerbaxa] AdvReac Rapid Verified 09/04/24 07:32 Heart Rate Physical Exam Vitals: Vital Signs Temp Pulse Resp BP Pulse Ox 09/04/24 08:45 93 20 122/97 99 09/04/24 08:02 82 09/04/24 07:51 74 09/04/24 07:39 97.5 F L 09/04/24 07:31 80 16 96/66 100 09/04/24 06:30 82 22 96/64 99 09/04/24 06:00 82 21 115/79 98 09/04/24 05:40 83 24 115/79 98 09/04/24 05:10 87 22 92/65 97 09/04/24 04:51 92 25 H 98/64 95 09/04/24 04:39 97 18 104/77 96 09/04/24 04:27 98.1 F 92 12 113/80 99 Intake and Output 09/03/24 09/04/24 09/04/24 22:59 06:59 14:59 Other: Weight 87.861 kg GENERAL DESCRIPTION: Elderly male lying in bed, no distress. No tachypnea or accessory muscle of respiration use. HEENT: Shows Pallor , no scleral icterus. Oral mucous membrane is dry. NECK: Trachea central, no thyromegaly. LUNGS: Unlabored breathing. Clear to auscultation anteriorly HEART: S1, S2, regular rate and rhythm. No loud murmur ABDOMEN: Soft, no tenderness EXTREMITIES: No edema of feet. SKIN: Patient did have a stage II ulcer to the sacral back area reported by the nursing staff but no drainage NEUROLOGICAL: The patient is awake, alert, but nonverbal orientation could not be determined Results CBC & Chem 7: 09/04/24 04:36 09/04/24 13:14 Labs: Abnormal Lab Results - Last 24 Hours (Table) 09/04/24 09/04/24 09/04/24 Range/Units 04:36 04:36 04:36 WBC 12.2 H (3.8-10.6) k/uL RBC 6.31 H (4.30-5.90) m/uL Hgb 18.0 H (13.0-17.5) gm/dL Hct 58.5 H* (39.0-53.0) % MCHC 30.7 L (31.0-37.0) g/dL RDW 16.2 H (11.5-15.5) % Neutrophils # 9.7 H (1.3-7.7) k/uL Sodium 160 H (137-145) mmol/L Chloride 125 H (98-107) mmol/L BUN 63 H (9-20) mg/dL Glucose 137 H (74-99) mg/dL ALT 96 H (4-49) U/L Troponin I 0.053 H* (0.000-0.034) ng/mL Urine Protein (Negative) Ur Leukocyte Esterase (Negative) Urine RBC (0-5) /hpf Urine WBC (0-5) /hpf Triple Phos Crystals (None) /hpf Urine Bacteria (None) /hpf Urine Mucus (None) /hpf 09/04/24 09/04/24 Range/Units 04:43 05:54 WBC (3.8-10.6) k/uL RBC (4.30-5.90) m/uL Hgb (13.0-17.5) gm/dL Hct (39.0-53.0) % MCHC (31.0-37.0) g/dL RDW (11.5-15.5) % Neutrophils # (1.3-7.7) k/uL Sodium 158 H (137-145) mmol/L Chloride (98-107) mmol/L BUN (9-20) mg/dL Glucose (74-99) mg/dL ALT (4-49) U/L Troponin I (0.000-0.034) ng/mL Urine Protein 4+ H (Negative) Ur Leukocyte Esterase Large H (Negative) Urine RBC 70 H (0-5) /hpf Urine WBC 49 H (0-5) /hpf Triple Phos Crystals Many H (None) /hpf Urine Bacteria Many H (None) /hpf Urine Mucus Many H (None) /hpf Assessment and Plan (1) Pressure injury of sacral region, stage 2 Current Visit: Yes Status: Acute Code(s): L89.152 - PRESSURE ULCER OF SACRAL REGION, STAGE 2 SNOMED Code(s): 77370685163872 (2) UTI (urinary tract infection) due to urinary indwelling catheter Current Visit: Yes Status: Acute Code(s): T83.511A - I/I REACT D/T INDWELLING URETHRAL CATHETER, INIT; N39.0 - URINARY TRACT INFECTION, SITE NOT SPECIFIED SNOMED Code(s): 694958439 (3) Allergy to multiple antibiotics Current Visit: No Status: Acute Code(s): Z88.1 - ALLERGY STATUS TO OTHER ANTIBIOTIC AGENTS SNOMED Code(s): 566372648 Plan: 1patient presented to hospital with sepsis in this patient who did have a elevated white count tachycardia meeting currently for SIRS source likely catheter assisted UTI and significant amount of purulent urine was noticed at the time of change of his Stein catheter 2patient with multiple antibiotic ALLERGIES that would limit the number of antibiotic safe to use 3patient will be started on ertapenem 1 g daily while waiting for the culture to finalize We will follow on clinical condition and cultures to further adjust medication if needed Thank you for this consultation we will follow the patient along with you Dictation was produced using [employer] dictation software. please excuse any grammatical, word or spelling errors. Time with Patient: Greater than 30
[2024-09-04] MEDS: ERTAPENEM 1 GM in SODIUM CHLORIDE 0.9% 50 ML IVPB SCH (16:51)
[2024-09-04] MEDS: ENOXAPARIN 40 MG/0.4 ML SYRINGE SQ SCH (17:00)
[2024-09-04 17:54] LABS: Glucose,Whole Blood 96 mg/dL (70-110)
[2024-09-04] MEDS: ATORVASTATIN 40 MG TAB PEG/G-TUBE SCH (20:53)
[2024-09-05 06:04] LABS: Basophils # (A) 0.1 k/uL (0-0.2); Basophils % (A) 0 %; Eosinophils # (A) 0.4 k/uL (0-0.7); Eosinophils % (A) 3 %; Hypochromasia Marked; Lymphocytes # (A) 0.9 k/uL (1.0-4.8); Lymphocytes % (A) 7 %; MCH 28.7 pg (25.0-35.0); MCHC 30.8 g/dL (31.0-37.0); Mean Platelet Volume 9.1; Monocytes # (A) 0.6 k/uL (0-1.0); Monocytes % (A) 5 %; Neutrophils # (A) 10.2 k/uL (1.3-7.7); Neutrophils % (A) 84 %; Platelet Count 186 k/uL (150-450); RBC 5.59 m/uL (4.30-5.90); WBC 12.2 k/uL (3.8-10.6)
[2024-09-05 06:15] LABS: ALT 59 U/L (4-49); AST 33 U/L (17-59); African American GFR (CKD) >90 (>60 ml/min/1.73 sqM); Albumin 3.4 g/dL (3.5-5.0); Alkaline Phosphatase 89 U/L (38-126); Anion Gap 4 mmol/L; Blood Urea Nitrogen 43 mg/dL (9-20); Calcium 8.1 mg/dL (8.4-10.2); Carbon Dioxide 27 mmol/L (22-30); Chloride 119 mmol/L (98-107); Glucose 114 mg/dL (74-99); Non-African American GFR(CKD) >90 (>60 ml/min/1.73 sqM); Potassium 3.8 mmol/L (3.5-5.1); Sodium 150 mmol/L (137-145); Total Bilirubin 0.8 mg/dL (0.2-1.3); Total Protein 6.6 g/dL (6.3-8.2)
--- NOTE | 2024-09-05 10:42 | P.PN ---
Subjective Progress Note Date: 09/05/24 Principal diagnosis: Chris is a 64-year-old male who had presented to the hospital on 09/04 for altered mental status. He was noted to be hypernatremic with a na level of 160 upon admission. He was started on d5w with improvement of his na level. 09/05- na level had improved from 160 to 150. noted to be bactermic with bcx positive for staph. started on enteral feeding Objective - Vital Signs Vital signs: Vital Signs Temp 98.7 F 09/05/24 08:20 Pulse 87 09/05/24 10:05 Resp 16 09/05/24 10:05 BP 106/64 09/05/24 10:05 Pulse Ox 95 09/05/24 10:05 FiO2 Intake & Output 09/04/24 09/05/24 09/05/24 18:59 06:59 18:59 Output Total 760 Balance -760 Weight 87.861 kg Output: Urine 760 - Exam General: male appears stated age. awake but not following any commands Derm: warm, dry Head: atraumatic, normocephalic, symmetric Eyes: EOMI, no lid lag, anicteric sclera, pupils equal round reactive to light ENT: Nose and ears atraumatic, no thrush, no pharyngeal erythema Neck: No thyromegaly, no cervical lymphadenopathy, trachea midline, supple Mouth: no lip lesion, mucus membranes moist Cardiovascular: S1S2 reg, no murmur, p Lungs: clear to ascultation bilateral, no ronchi, no rales, no wheeze, no accessory muscle use on 2 L NC Abdominal: soft, nontender to palpation, no guarding, no appreciable organomegaly, normal bowel sounds, peg tube noted and attached to enteral feeding Ext: ble appear contracted Neuro: awake but not following any commands. Psych: calm - Labs CBC & Chem 7: 09/05/24 05:54 09/05/24 05:54 Labs: Abnormal Lab Results - Last 24 Hours (Table) 09/04/24 09/04/24 09/04/24 Range/Units 04:36 10:57 10:57 WBC (3.8-10.6) k/uL MCHC (31.0-37.0) g/dL RDW (11.5-15.5) % Neutrophils # (1.3-7.7) k/uL Lymphocytes # (1.0-4.8) k/uL ESR 50 H (0-20) mm/Hr Sodium (137-145) mmol/L Chloride (98-107) mmol/L BUN (9-20) mg/dL Glucose (74-99) mg/dL Calcium (8.4-10.2) mg/dL ALT (4-49) U/L Troponin I 0.045 H* (0.000-0.034) ng/mL C-Reactive Protein 1.3 H (<1.0) mg/dL Albumin (3.5-5.0) g/dL 09/04/24 09/04/24 09/04/24 Range/Units 13:14 13:14 18:20 WBC (3.8-10.6) k/uL MCHC (31.0-37.0) g/dL RDW (11.5-15.5) % Neutrophils # (1.3-7.7) k/uL Lymphocytes # (1.0-4.8) k/uL ESR (0-20) mm/Hr Sodium 152 H 151 H (137-145) mmol/L Chloride (98-107) mmol/L BUN (9-20) mg/dL Glucose (74-99) mg/dL Calcium (8.4-10.2) mg/dL ALT (4-49) U/L Troponin I 0.039 H* (0.000-0.034) ng/mL C-Reactive Protein (<1.0) mg/dL Albumin (3.5-5.0) g/dL 09/04/24 09/05/24 09/05/24 Range/Units 19:54 05:54 05:54 WBC 12.2 H (3.8-10.6) k/uL MCHC 30.8 L (31.0-37.0) g/dL RDW 16.0 H (11.5-15.5) % Neutrophils # 10.2 H (1.3-7.7) k/uL Lymphocytes # 0.9 L (1.0-4.8) k/uL ESR (0-20) mm/Hr Sodium 152 H 150 H (137-145) mmol/L Chloride 119 H (98-107) mmol/L BUN 43 H (9-20) mg/dL Glucose 114 H (74-99) mg/dL Calcium 8.1 L (8.4-10.2) mg/dL ALT 59 H (4-49) U/L Troponin I (0.000-0.034) ng/mL C-Reactive Protein (<1.0) mg/dL Albumin 3.4 L (3.5-5.0) g/dL Microbiology - Last 24 Hours (Table) 09/04/24 05:06 Blood Culture Gram Stain - Preliminary Blood Blood Culture - Preliminary Molecular ID Assessment and Plan Assessment: #) Hypernatremia, likely from lack of free water intake. Unclear of the patient's home enteral feeding regimen but would recommend to increase volume of free water flushes. Continue 0.45 at 100 cc/hr. increase free water flush on enteral feeding to 200 q4hr from 30 cc q4hr #) acute metabolic encephalopathy likely from electrolyte derangements. continue serial neuro checks #) Bactermia with bcx positive for staph. received a dose of iv linezolid yesterday given concern for cystiitis. linezolid is not bacterocidial. As the patient is not septic, monitor off daptomycn/vancomycin for now and f/u on final bcx. I suspect skin contaomint as CRP noted to be 1.3 #) ?Hypoxia etiology appears unclear. cxr negative for infiltrate. rsv/covid-19 negative. monitor ability to tolerate secretions. supplemental NC as tolerates. aggressive pulmonary hygiene #) Sacral ulcer. Wound care team evaluation #) Questionable cystitis. UA obtained prior to aggarwal catheter exchange. May simply represent aggarwal bag colonization. On iv ertepenam. #) Multiple sclerosis, severe. Unable to perform adls and appears mostly bedbound #) S/p aggarwal catheter- fur tinter to resume enteral feeding once able to evaluate what he receives at extended care facility #) Seizure disorder- lactosmide solution not available to be placed via peg tube at this institution. continue iv lacmoside 150 mg bid. continue carbamazepine 100 mg tid #) Cognitive impairment #) Peg tube dependent- continue jevity 1.5 with goal rate of 55 cc/hr Dispo: med/surge, will return to [facility] upon discharge. f/u on final bcx/ucx and continue free water and monitor na levels. dvt ppx: lovenox 40 mg daily Time with Patient: Greater than 30
--- NOTE | 2024-09-05 11:03 | P.PN ---
Subjective Patient is seen in follow-up for hyponatremia. Sodium level 150 this morning. Currently receiving half-normal saline. Nonverbal. Vital signs are stable. General: Resting in bed. HEENT: On nasal cannula. LUNGS: Scattered rhonchi. HEART: Rate and Rhythm are regular. ABDOMEN: No distention. PEG tube noted. EXTREMITITES: No edema. Objective - Vital Signs Vital signs: Vital Signs Temp 98.7 F 09/05/24 08:20 Pulse 87 09/05/24 10:05 Resp 16 09/05/24 10:05 BP 106/64 09/05/24 10:05 Pulse Ox 95 09/05/24 10:05 FiO2 Intake & Output 09/04/24 09/05/24 09/05/24 18:59 06:59 18:59 Output Total 760 Balance -760 Weight 87.861 kg Output: Urine 760 - Labs CBC & Chem 7: 09/05/24 05:54 09/05/24 05:54 Labs: Abnormal Lab Results - Last 24 Hours (Table) 09/04/24 09/04/24 09/04/24 Range/Units 04:36 10:57 10:57 WBC (3.8-10.6) k/uL MCHC (31.0-37.0) g/dL RDW (11.5-15.5) % Neutrophils # (1.3-7.7) k/uL Lymphocytes # (1.0-4.8) k/uL ESR 50 H (0-20) mm/Hr Sodium (137-145) mmol/L Chloride (98-107) mmol/L BUN (9-20) mg/dL Glucose (74-99) mg/dL Calcium (8.4-10.2) mg/dL ALT (4-49) U/L Troponin I 0.045 H* (0.000-0.034) ng/mL C-Reactive Protein 1.3 H (<1.0) mg/dL Albumin (3.5-5.0) g/dL 09/04/24 09/04/24 09/04/24 Range/Units 13:14 13:14 18:20 WBC (3.8-10.6) k/uL MCHC (31.0-37.0) g/dL RDW (11.5-15.5) % Neutrophils # (1.3-7.7) k/uL Lymphocytes # (1.0-4.8) k/uL ESR (0-20) mm/Hr Sodium 152 H 151 H (137-145) mmol/L Chloride (98-107) mmol/L BUN (9-20) mg/dL Glucose (74-99) mg/dL Calcium (8.4-10.2) mg/dL ALT (4-49) U/L Troponin I 0.039 H* (0.000-0.034) ng/mL C-Reactive Protein (<1.0) mg/dL Albumin (3.5-5.0) g/dL 09/04/24 09/05/24 09/05/24 Range/Units 19:54 05:54 05:54 WBC 12.2 H (3.8-10.6) k/uL MCHC 30.8 L (31.0-37.0) g/dL RDW 16.0 H (11.5-15.5) % Neutrophils # 10.2 H (1.3-7.7) k/uL Lymphocytes # 0.9 L (1.0-4.8) k/uL ESR (0-20) mm/Hr Sodium 152 H 150 H (137-145) mmol/L Chloride 119 H (98-107) mmol/L BUN 43 H (9-20) mg/dL Glucose 114 H (74-99) mg/dL Calcium 8.1 L (8.4-10.2) mg/dL ALT 59 H (4-49) U/L Troponin I (0.000-0.034) ng/mL C-Reactive Protein (<1.0) mg/dL Albumin 3.4 L (3.5-5.0) g/dL Microbiology - Last 24 Hours (Table) 09/04/24 05:06 Blood Culture Gram Stain - Preliminary Blood Blood Culture - Preliminary Molecular ID Assessment and Plan Plan: Assessment: 1. Hypernatremia from lack of oral water intake. Sodium level 160 on admission and is 150 today. 2. Acute kidney injury secondary to vasomotor nephropathy from hypovolemia. Creatinine 1.25 on admission -0.89 today. 3. Acute hypoxic respiratory failure. On 3 L nasal cannula. 4. Paraplegia with chronic Stein catheter. 5. Gram-positive bacteremia on antibiotics. Plan: Maintain half-normal saline. Follow-up cultures. Continue to hold lisinopril as blood pressure is on the lower side. Avoid nephrotoxins. Continue to monitor renal function and urine output. Repeat sodium level this afternoon.
--- NOTE | 2024-09-05 11:03 | P.CONS ---
History of Present Illness - Reason for Consult Consult date: 09/05/24 wound care - History of Present Illness This is a 64-year-old male with past medical history of multiple sclerosis, functional quadriplegia, chronic indwelling Stein catheter history of PEG tube placement. Patient is bedbound with a nonhealing ulcer to the sacrum. Patient has a Stage II pressure ulcer to the sacrum. Ulceration shows slough and nonviable tissue minimal granulation excoriation noted. Review Of Systems: Unable to obtain due to patient's mental status Physical exam: General Appearance: Alert, cooperative, no distress, appears stated age. Skin: See HPI all other Skin color, texture, tugor normal, no rashes or lesions. Neurologic: Alert oriented x3 Assessment: 1. Stage II pressure pressure ulcer sacrum 2. Quadriplegia 3. MS Plan: 1. Apply honey gel and bordered foam to the site change Sunday. Turn patient every 2 hours. Utilize a air-filled cushion when sitting. Utilize a offloading surface. Thank you for the consultation any questions please contact the wound care center DNP note has been reviewed and discussed with Dr. Martin and the impression and plan of care has been directed as dictated. Past Medical History Past Medical History: Deep Vein Thrombosis (DVT), GERD/Reflux, Hypertension, Musculoskeletal Disorder, Neurologic Disorder, Pneumonia, Seizure Disorder, Skin Disorder Additional Past Medical History / Comment(s): Pt diagnosed with MS at the age of 39 yrs, seizure/pneumonia/UTI with sepsis/respirtory failure/vented, cognitive impairment, sister states when he is feeling well he could speak a few words/nod head appropriately/give thumbs up/roll eyes but when ill is nonverbal, pt has dysphagia/NPO with peg tube, contractures, last seizure 07/2020, trigeminal neuralgia, dysarthria/anarthria/neurogenic bladder with IDC-UTIs/sepsis, multiple pneumonias, recent seizure-last one 07/03/20, incontinent of stool, pt has had decubitus ulcer coccyx-sister unsure of skin condition at this time, past anemia r/t heparin/epistaxiis which involved nasal packing/transfusions, DVT bilateral arms, hypoxia, oxygen at 2L/NC, L femoral head fracture History of Any Multi-Drug Resistant Organisms: ESBL, MRSA, Other MDRO Year Discovered:: 03/09/21-MRSA; 11/23/19 ESBL-E.coli MDRO Source:: Abdomen-Peg site MRSA; Urine -ESBL Past Surgical History: Tonsillectomy Additional Past Surgical History / Comment(s): Gastrostomy, peg tube, I&D coccyx decubitius, bronchoscopy, bilateral lasik eye surgery. Past Anesthesia/Blood Transfusion Reactions: No Reported Reaction Additional Past Anesthesia/Blood Transfusion Reaction / Comm: Pt has received blood in past without reaction. Past Psychological History: Depression Smoking Status: Never smoker Past Alcohol Use History: None Reported Past Drug Use History: None Reported - Past Family History Father Family Medical History: Myocardial Infarction (SD) Mother Family Medical History: Hypertension, Myocardial Infarction (SD) Additional Family Medical History / Comment(s): Mother of a SD at the age of 73 yrs. Medications and Allergies Home Medications Medication Instructions Recorded Confirmed Type Aspirin 81 mg PEG/G-TUBE DAILY 11/27/20 09/04/24 History Acetaminophen Tab [Tylenol] 650 mg PEG/G-TUBE Q4H PRN 06/13/21 09/04/24 History Metoprolol Tartrate [Lopressor] 50 mg PEG/G-TUBE BID 06/13/21 09/04/24 History carBAMazepine [carBAMazepine Oral 100 mg PEG/G-TUBE TID 07/02/21 09/04/24 History Susp] Lactulose 20 gm PEG/G-TUBE TID 01/03/22 09/04/24 History Scopolamine [Scopolamine 1 MG/72 1 patch TRANSDERM Q72H 01/03/22 09/04/24 History HR patch] oxyBUTYnin chloride 5 mg PEG/G-TUBE TID 12/19/22 09/04/24 History Atorvastatin [Lipitor] 40 mg PEG/G-TUBE HS 07/14/23 09/04/24 History Famotidine [Pepcid] 20 mg PEG/G-TUBE DAILY 07/14/23 09/04/24 History polyethylene glycoL 3350 [Miralax] 17 gm PEG/G-TUBE HS 10/17/23 09/04/24 History Ipratropium-Albuterol Nebulize 3 ml INHALATION RT-TID 11/18/23 09/04/24 History [Duoneb 0.5 mg-3 mg/3 ml Soln] Lacosamide [Vimpat Oral Soln] 150 mg PEG/G-TUBE BID 11/18/23 09/04/24 History lisinopriL [Zestril] 2.5 mg PEG/G-TUBE DAILY 11/18/23 09/04/24 History Baclofen 5 mg PEG/G-TUBE TID 07/25/24 09/04/24 History Cranberry 450mg 1 tab PEG/G-TUBE DAILY 07/25/24 09/04/24 History Prostat 30 ml PEG/G-TUBE DAILY 07/25/24 09/04/24 History amantadine HCL [Amantadine] 100 mg PEG/G-TUBE DAILY 07/25/24 09/04/24 History bisacodyL [Dulcolax] 10 mg RECTAL DAILY PRN 07/25/24 09/04/24 History Allergies Allergy/AdvReac Type Severity Reaction Status Date / Time meropenem [From Merrem] Allergy Rash/Hives Verified 09/04/24 15:04 ceftolozane [From Zerbaxa] AdvReac Rapid Verified 09/04/24 07:32 Heart Rate tazobactam [From Zerbaxa] AdvReac Rapid Verified 09/04/24 07:32 Heart Rate Physical Exam Vitals: Vital Signs Temp Pulse Resp BP Pulse Ox 09/05/24 10:05 87 16 106/64 95 09/05/24 09:05 92 18 111/76 95 09/05/24 08:52 103 H 22 09/05/24 08:42 105 H 22 98 09/05/24 08:20 98.7 F 92 16 121/85 98 09/05/24 04:53 90 20 109/80 95 09/05/24 01:38 90 18 111/69 94 L 09/04/24 21:07 96 18 102/70 96 09/04/24 20:08 93 09/04/24 19:56 92 09/04/24 17:56 90 20 113/87 98 09/04/24 16:30 97.6 F 69 18 106/62 100 09/04/24 12:56 76 18 106/78 99 09/04/24 12:24 97 09/04/24 12:22 80 09/04/24 12:12 70 09/04/24 11:17 76 18 116/76 99 Intake and Output 09/04/24 09/05/24 09/05/24 22:59 06:59 14:59 Output Total 760 Balance -760 Output: Urine 760 Results CBC & Chem 7: 09/05/24 05:54 09/05/24 05:54 Labs: Abnormal Lab Results - Last 24 Hours (Table) 09/04/24 09/04/24 09/04/24 Range/Units 04:36 10:57 10:57 WBC (3.8-10.6) k/uL MCHC (31.0-37.0) g/dL RDW (11.5-15.5) % Neutrophils # (1.3-7.7) k/uL Lymphocytes # (1.0-4.8) k/uL ESR 50 H (0-20) mm/Hr Sodium (137-145) mmol/L Chloride (98-107) mmol/L BUN (9-20) mg/dL Glucose (74-99) mg/dL Calcium (8.4-10.2) mg/dL ALT (4-49) U/L Troponin I 0.045 H* (0.000-0.034) ng/mL C-Reactive Protein 1.3 H (<1.0) mg/dL Albumin (3.5-5.0) g/dL 09/04/24 09/04/24 09/04/24 Range/Units 13:14 13:14 18:20 WBC (3.8-10.6) k/uL MCHC (31.0-37.0) g/dL RDW (11.5-15.5) % Neutrophils # (1.3-7.7) k/uL Lymphocytes # (1.0-4.8) k/uL ESR (0-20) mm/Hr Sodium 152 H 151 H (137-145) mmol/L Chloride (98-107) mmol/L BUN (9-20) mg/dL Glucose (74-99) mg/dL Calcium (8.4-10.2) mg/dL ALT (4-49) U/L Troponin I 0.039 H* (0.000-0.034) ng/mL C-Reactive Protein (<1.0) mg/dL Albumin (3.5-5.0) g/dL 09/04/24 09/05/24 09/05/24 Range/Units 19:54 05:54 05:54 WBC 12.2 H (3.8-10.6) k/uL MCHC 30.8 L (31.0-37.0) g/dL RDW 16.0 H (11.5-15.5) % Neutrophils # 10.2 H (1.3-7.7) k/uL Lymphocytes # 0.9 L (1.0-4.8) k/uL ESR (0-20) mm/Hr Sodium 152 H 150 H (137-145) mmol/L Chloride 119 H (98-107) mmol/L BUN 43 H (9-20) mg/dL Glucose 114 H (74-99) mg/dL Calcium 8.1 L (8.4-10.2) mg/dL ALT 59 H (4-49) U/L Troponin I (0.000-0.034) ng/mL C-Reactive Protein (<1.0) mg/dL Albumin 3.4 L (3.5-5.0) g/dL Microbiology - Last 24 Hours (Table) 09/04/24 05:06 Blood Culture Gram Stain - Preliminary Blood Blood Culture - Preliminary Molecular ID Assessment and Plan (1) Pressure injury of sacral region, stage 2 Current Visit: Yes Status: Acute Code(s): L89.152 - PRESSURE ULCER OF SACRAL REGION, STAGE 2 SNOMED Code(s): 28420402812241 (2) Functional quadriplegia secondary to MS Current Visit: Yes Status: Acute Code(s): G35 - MULTIPLE SCLEROSIS; R53.2 - FUNCTIONAL QUADRIPLEGIA SNOMED Code(s): 412374325066357 (3) Multiple sclerosis, primary progressive Current Visit: Yes Status: Chronic Code(s): G35 - MULTIPLE SCLEROSIS SNOMED Code(s): 640399521
[2024-09-05 12:12] LABS: Glucose,Whole Blood 121 mg/dL (70-110)
--- NOTE | 2024-09-05 13:00 | P.PN ---
Subjective Progress Note Date: 09/05/24 Principal diagnosis: Reason for follow-up is catheter assisted UTI and positive blood culture Patient is a 64-year-old male with a past medical history significant for MS in this patient who is in a bedbound state did have a chronic indwelling Stein catheter for urinary retention and history of recurrent catheter assisted UTI as well as pneumonia patient has been sent to the ER from the local halfway for evaluation of mental status changes, patient noted to have significant purulent urine at the time of his Stein catheter changed by the nursing staff in the ER concerning for catheter assisted UTI. On today's evaluation that is 09/05/2024, the patient is afebrile this morning the patient is currently breathing comfortable 2 L current oxygen in no distress no vomiting or diarrhea has been reported patient cannot provide any history. Patient white count is 12.2, creatinine is 0.89 urine cultures currently pending blood culture with Staphylococcus species, urine with gram-negative Objective - Vital Signs Vital signs: Vital Signs Temp 98.5 F 09/05/24 12:28 Pulse 90 09/05/24 12:28 Resp 20 09/05/24 12:28 BP 116/79 09/05/24 12:28 Pulse Ox 95 09/05/24 12:28 FiO2 Intake & Output 09/04/24 09/05/24 09/05/24 18:59 06:59 18:59 Output Total 760 Balance -760 Weight 87.861 kg 85 kg Output: Urine 760 Other: # Bowel Movements 1 - Exam GENERAL DESCRIPTION: An elderly male lying in bed in no distress RESPIRATORY SYSTEM: Unlabored breathing , decreased breath sounds at bases HEART: S1 S2 regular rate and rhythm , ABDOMEN: Soft , no tenderness EXTREMITIES: No edema feet - Labs CBC & Chem 7: 09/05/24 05:54 09/05/24 05:54 Labs: Abnormal Lab Results - Last 24 Hours (Table) 09/04/24 09/04/24 09/04/24 Range/Units 04:36 13:14 13:14 WBC (3.8-10.6) k/uL MCHC (31.0-37.0) g/dL RDW (11.5-15.5) % Neutrophils # (1.3-7.7) k/uL Lymphocytes # (1.0-4.8) k/uL ESR 50 H (0-20) mm/Hr Sodium 152 H (137-145) mmol/L Chloride (98-107) mmol/L BUN (9-20) mg/dL Glucose (74-99) mg/dL POC Glucose (mg/dL) (70-110) mg/dL Calcium (8.4-10.2) mg/dL ALT (4-49) U/L Troponin I 0.039 H* (0.000-0.034) ng/mL Albumin (3.5-5.0) g/dL 09/04/24 09/04/24 09/05/24 Range/Units 18:20 19:54 05:54 WBC (3.8-10.6) k/uL MCHC (31.0-37.0) g/dL RDW (11.5-15.5) % Neutrophils # (1.3-7.7) k/uL Lymphocytes # (1.0-4.8) k/uL ESR (0-20) mm/Hr Sodium 151 H 152 H 150 H (137-145) mmol/L Chloride 119 H (98-107) mmol/L BUN 43 H (9-20) mg/dL Glucose 114 H (74-99) mg/dL POC Glucose (mg/dL) (70-110) mg/dL Calcium 8.1 L (8.4-10.2) mg/dL ALT 59 H (4-49) U/L Troponin I (0.000-0.034) ng/mL Albumin 3.4 L (3.5-5.0) g/dL 09/05/24 09/05/24 Range/Units 05:54 12:10 WBC 12.2 H (3.8-10.6) k/uL MCHC 30.8 L (31.0-37.0) g/dL RDW 16.0 H (11.5-15.5) % Neutrophils # 10.2 H (1.3-7.7) k/uL Lymphocytes # 0.9 L (1.0-4.8) k/uL ESR (0-20) mm/Hr Sodium (137-145) mmol/L Chloride (98-107) mmol/L BUN (9-20) mg/dL Glucose (74-99) mg/dL POC Glucose (mg/dL) 121 H (70-110) mg/dL Calcium (8.4-10.2) mg/dL ALT (4-49) U/L Troponin I (0.000-0.034) ng/mL Albumin (3.5-5.0) g/dL Microbiology - Last 24 Hours (Table) 09/04/24 04:43 Urine Culture - Preliminary Urine,Voided Gram Neg Bacilli 09/04/24 05:06 Blood Culture Gram Stain - Preliminary Blood Blood Culture - Preliminary Molecular ID Assessment and Plan (1) Pressure injury of sacral region, stage 2 Current Visit: Yes Status: Acute Code(s): L89.152 - PRESSURE ULCER OF SACRAL REGION, STAGE 2 SNOMED Code(s): 16363253773633 (2) UTI (urinary tract infection) due to urinary indwelling catheter Current Visit: Yes Status: Acute Code(s): T83.511A - I/I REACT D/T INDWELLING URETHRAL CATHETER, INIT; N39.0 - URINARY TRACT INFECTION, SITE NOT SPECIFIED SNOMED Code(s): 855033466 (3) Allergy to multiple antibiotics Current Visit: No Status: Acute Code(s): Z88.1 - ALLERGY STATUS TO OTHER ANTIBIOTIC AGENTS SNOMED Code(s): 439663414 (4) Positive blood culture Current Visit: No Status: Acute Code(s): R78.81 - BACTEREMIA SNOMED Code(s): 058588970 Plan: 1patient presented to hospital with sepsis in this patient who did have a e levated white count tachycardia meeting currently for SIRS source likely catheter assisted UTI and significant amount of purulent urine was noticed at the time of change of his Stein catheter 2patient with multiple antibiotic ALLERGIES that would limit the number of antibiotic safe to use 3patient with a possible previous staph epi likely skin contamination no need for vancomycin. 4urine is growing gram-negative with the patient is being treated with ertapenem while waiting for sensitivity to finalize Dictation was produced using [employer] dictation software. please excuse any grammatical, word or spelling errors. Time with Patient: Less than 30
[2024-09-05] MEDS: ACETAMINOPHEN TAB 325 MG TAB PEG/G-TUBE PRN (17:25)
[2024-09-05 18:03] LABS: Glucose,Whole Blood 103 mg/dL (70-110)
[2024-09-05] MEDS: DEXTROSE 5% IN WATER 1,000 ML IV SCH (18:18)
[2024-09-05 20:34] LABS: Glucose,Whole Blood 108 mg/dL (70-110)
[2024-09-06 00:13] LABS: Glucose,Whole Blood 84 mg/dL (70-110)
[2024-09-06 06:15] LABS: Glucose,Whole Blood 127 mg/dL (70-110)
[2024-09-06 09:20] LABS: African American GFR (CKD) >90 (>60 ml/min/1.73 sqM); Anion Gap 6 mmol/L; Blood Urea Nitrogen 31 mg/dL (9-20); Calcium 7.9 mg/dL (8.4-10.2); Carbon Dioxide 22 mmol/L (22-30); Chloride 117 mmol/L (98-107); Glucose 129 mg/dL (74-99); Non-African American GFR(CKD) >90 (>60 ml/min/1.73 sqM); Sodium 145 mmol/L (137-145)
[2024-09-06 09:26] LABS: Magnesium 2.3 mg/dL (1.6-2.3); Potassium 5.3 mmol/L (3.5-5.1)
--- NOTE | 2024-09-06 11:00 | P.PN ---
Subjective Principal diagnosis: Chris is a 64-year-old male who had presented to the hospital on 09/04 for altered mental status. He was noted to be hypernatremic with a na level of 160 upon admission. He was started on d5w with improvement of his na level. 09/06-sodium level had down trended from 1 50-1 45. His potassium was noted be 5.3. He is currently at goal in terms of his enteral feeding and is at 55 cc an hour. Objective - Vital Signs Vital signs: Vital Signs Temp 97.5 F L 09/06/24 04:00 Pulse 92 09/06/24 08:54 Resp 18 09/06/24 04:00 BP 132/74 09/06/24 04:00 Pulse Ox 99 09/06/24 04:00 FiO2 Intake & Output 09/05/24 09/06/24 09/06/24 18:59 06:59 18:59 Intake Total 100 Output Total 760 Balance -760 100 Weight 85 kg 90 kg Intake: Tube Feeding 100 Output: Urine 760 Other: Voiding Method Indwelling Catheter Indwelling Catheter # Bowel Movements 1 1 - Exam General: male appears stated age. awake but not following any commands Derm: warm, dry Head: atraumatic, normocephalic, symmetric Eyes: EOMI, no lid lag, anicteric sclera, pupils equal round reactive to light ENT: Nose and ears atraumatic, no thrush, no pharyngeal erythema Neck: No thyromegaly, no cervical lymphadenopathy, trachea midline, supple Mouth: no lip lesion, mucus membranes moist Cardiovascular: S1S2 reg, no murmur, p Lungs: clear to ascultation bilateral, no ronchi, no rales, no wheeze, no accessory muscle use on 2 L NC Abdominal: soft, nontender to palpation, no guarding, no appreciable organomegaly, normal bowel sounds, peg tube noted and attached to enteral feeding Ext: ble appear contracted Neuro: awake but not following any commands. Psych: calm - Labs CBC & Chem 7: 09/05/24 05:54 09/06/24 08:11 Labs: Abnormal Lab Results - Last 24 Hours (Table) 09/05/24 09/05/24 09/06/24 Range/Units 12:10 16:02 06:13 Sodium 150 H (137-145) mmol/L Potassium (3.5-5.1) mmol/L Chloride (98-107) mmol/L BUN (9-20) mg/dL Glucose (74-99) mg/dL POC Glucose (mg/dL) 121 H 127 H (70-110) mg/dL Calcium (8.4-10.2) mg/dL 09/06/24 Range/Units 08:11 Sodium (137-145) mmol/L Potassium 5.3 H (3.5-5.1) mmol/L Chloride 117 H (98-107) mmol/L BUN 31 H (9-20) mg/dL Glucose 129 H (74-99) mg/dL POC Glucose (mg/dL) (70-110) mg/dL Calcium 7.9 L (8.4-10.2) mg/dL Microbiology - Last 24 Hours (Table) 09/04/24 05:06 Blood Culture Gram Stain - Preliminary Blood Blood Culture - Preliminary Staphylococcus capitis Molecular ID 09/04/24 04:43 Urine Culture - Final Urine,Voided Providencia stuartii Providencia stuartii#2 Assessment and Plan Assessment: #) Hypernatremia, likely from lack of free water intake. Continue free water flush at 200 cc every 4 hours. Levels currently 145. Recheck sodium level this afternoon and daily labs afterwards. #) acute metabolic encephalopathy likely from electrolyte derangements. continue serial neuro checks. ? Appears to be at baseline #) Bactermia with bcx positive for Staphylococcus capitis. This is likely a skin contaminant. Monitor off antibiotics #) ?Hypoxia etiology appears unclear. cxr negative for infiltrate. rsv/covid-19 negative. monitor ability to tolerate secretions. supplemental NC as tolerates. aggressive pulmonary hygiene #) Sacral ulcer. Every 2 hours repositioning #) Providencia stuartii cystitis. Aggarwal catheter bag was exchanged to the ER. Continue IV ertapenem #) Multiple sclerosis, severe. Unable to perform adls and appears mostly bedbound #) Chronic aggarwal cathter- exchange aggarwal catheter monthyl at [facility] #) Seizure disorder- lactosmide solution not available to be placed via peg tube at this institution. continue iv lacmoside 150 mg bid. continue carbamazepine 100 mg tid #) Cognitive impairment #) Peg tube dependent- continue jevity 1.5 at goal rate of 55 cc/hr Dispo: med/surge, will return to [facility]CF upon discharge, possibly on Sunday dvt ppx: lovenox 40 mg daily Time with Patient: Greater than 30
[2024-09-06 11:53] LABS: Glucose,Whole Blood 144 mg/dL (70-110)
--- NOTE | 2024-09-06 12:25 | P.PN ---
Subjective Progress Note Date: 09/06/24 Patient is seen in follow-up for hypernatremia. Sodium level 145 this morning. Currently receiving half-normal saline. Nonverbal. Vital signs are stable. General: Resting in bed. HEENT: On nasal cannula. LUNGS: Scattered rhonchi. HEART: Rate and Rhythm are regular. ABDOMEN: No distention. PEG tube noted. EXTREMITITES: No edema. Objective - Vital Signs Vital signs: Vital Signs Temp 97.5 F L 09/06/24 04:00 Pulse 92 09/06/24 08:54 Resp 18 09/06/24 04:00 BP 132/74 09/06/24 04:00 Pulse Ox 99 09/06/24 04:00 FiO2 Intake & Output 09/05/24 09/06/24 09/06/24 18:59 06:59 18:59 Intake Total 100 Output Total 760 Balance -760 100 Weight 85 kg 90 kg Intake: Tube Feeding 100 Output: Urine 760 Other: Voiding Method Indwelling Catheter Indwelling Catheter # Bowel Movements 1 1 - Labs CBC & Chem 7: 09/05/24 05:54 09/06/24 08:11 Labs: Abnormal Lab Results - Last 24 Hours (Table) 09/05/24 09/05/24 09/06/24 Range/Units 12:10 16:02 06:13 Sodium 150 H (137-145) mmol/L Potassium (3.5-5.1) mmol/L Chloride (98-107) mmol/L BUN (9-20) mg/dL Glucose (74-99) mg/dL POC Glucose (mg/dL) 121 H 127 H (70-110) mg/dL Calcium (8.4-10.2) mg/dL 09/06/24 Range/Units 08:11 Sodium (137-145) mmol/L Potassium 5.3 H (3.5-5.1) mmol/L Chloride 117 H (98-107) mmol/L BUN 31 H (9-20) mg/dL Glucose 129 H (74-99) mg/dL POC Glucose (mg/dL) (70-110) mg/dL Calcium 7.9 L (8.4-10.2) mg/dL Microbiology - Last 24 Hours (Table) 09/04/24 05:06 Blood Culture Gram Stain - Preliminary Blood Blood Culture - Preliminary Staphylococcus capitis Molecular ID 09/04/24 04:43 Urine Culture - Final Urine,Voided Jolly stkieshartcole Azevedo stkieshartcole#2 Assessment and Plan Assessment: 1. Hypernatremia from lack of oral water intake. Sodium level 160 on admission and is 145 today. 2. Acute kidney injury secondary to vasomotor nephropathy from hypovolemia. Creatinine 1.25 on admission -0.6 today. 3. Acute hypoxic respiratory failure. On 3 L nasal cannula. 4. Paraplegia with chronic Stein catheter. 5. Gram-positive bacteremia on antibiotics. Plan: Maintain half-normal saline. Follow-up cultures. Continue to hold lisinopril as blood pressure is on the lower side. Avoid nephrotoxins. Continue to monitor renal function and urine output.
--- NOTE | 2024-09-06 13:36 | P.PN ---
Subjective Progress Note Date: 09/06/24 Principal diagnosis: Reason for follow-up is catheter assisted UTI and positive blood culture Patient is a 64-year-old male with a past medical history significant for MS in this patient who is in a bedbound state did have a chronic indwelling Stein catheter for urinary retention and history of recurrent catheter assisted UTI as well as pneumonia patient has been sent to the [facility] the local [facility] for evaluation of mental status changes, patient noted to have significant purulent urine at the time of his Stein catheter changed by the nursing staff in the ER concerning for catheter assisted UTI. On today's evaluation that is 09/06/2024, patient did not have any fever and breathing comfortably on 2 L nasal cannula oxygen patient does not seem to be any distress no vomiting diarrhea any other changes reported by nursing staff. Patient did have a creatinine of 0.66 no CBC was done today urine is growing procidencia blood culture with Staphylococcus capitis Objective - Vital Signs Vital signs: Vital Signs Temp 97.5 F L 09/06/24 04:00 Pulse 92 09/06/24 08:54 Resp 18 09/06/24 04:00 BP 132/74 09/06/24 04:00 Pulse Ox 99 09/06/24 04:00 FiO2 Intake & Output 09/05/24 09/06/24 09/06/24 18:59 06:59 18:59 Intake Total 100 Output Total 760 Balance -760 100 Weight 85 kg 90 kg Intake: Tube Feeding 100 Output: Urine 760 Other: Voiding Method Indwelling Catheter Indwelling Catheter # Bowel Movements 1 1 - Exam GENERAL DESCRIPTION: An elderly male lying in bed in no distress RESPIRATORY SYSTEM: Unlabored breathing , decreased breath sounds at bases HEART: S1 S2 regular rate and rhythm , ABDOMEN: Soft , no tenderness EXTREMITIES: No edema feet - Labs CBC & Chem 7: 09/05/24 05:54 09/06/24 08:11 Labs: Abnormal Lab Results - Last 24 Hours (Table) 09/05/24 09/05/24 09/06/24 Range/Units 12:10 16:02 06:13 Sodium 150 H (137-145) mmol/L Potassium (3.5-5.1) mmol/L Chloride (98-107) mmol/L BUN (9-20) mg/dL Glucose (74-99) mg/dL POC Glucose (mg/dL) 121 H 127 H (70-110) mg/dL Calcium (8.4-10.2) mg/dL 09/06/24 Range/Units 08:11 Sodium (137-145) mmol/L Potassium 5.3 H (3.5-5.1) mmol/L Chloride 117 H (98-107) mmol/L BUN 31 H (9-20) mg/dL Glucose 129 H (74-99) mg/dL POC Glucose (mg/dL) (70-110) mg/dL Calcium 7.9 L (8.4-10.2) mg/dL Microbiology - Last 24 Hours (Table) 09/04/24 05:06 Blood Culture Gram Stain - Preliminary Blood Blood Culture - Preliminary Staphylococcus capitis Molecular ID 09/04/24 04:43 Urine Culture - Final Urine,Voided Providencia stuartii Providencia stuartii#2 Assessment and Plan (1) Pressure injury of sacral region, stage 2 Current Visit: Yes Status: Acute Code(s): L89.152 - PRESSURE ULCER OF SACRAL REGION, STAGE 2 SNOMED Code(s): 98934221624196 (2) UTI (urinary tract infection) due to urinary indwelling catheter Current Visit: Yes Status: Acute Code(s): T83.511A - I/I REACT D/T INDWELLING URETHRAL CATHETER, INIT; N39.0 - URINARY TRACT INFECTION, SITE NOT SPECIFIED SNOMED Code(s): 673452158 (3) Allergy to multiple antibiotics Current Visit: No Status: Acute Code(s): Z88.1 - ALLERGY STATUS TO OTHER ANTIBIOTIC AGENTS SNOMED Code(s): 344540224 (4) Positive blood culture Current Visit: No Status: Acute Code(s): R78.81 - BACTEREMIA SNOMED Code(s): 353426048 Plan: 1patient presented to hospital with sepsis in this patient who did have a elevated white count tachycardia meeting currently for SIRS source likely catheter assisted UTI and significant amount of purulent urine was noticed at the time of change of his Stein catheter 2patient with multiple antibiotic ALLERGIES that would limit the number of antibiotic safe to use 3patient with a possible previous staph capitis likely skin contamination no need for vancomycin, blood culture has been repeated document clearance. 4urine is growing procidencia for which the patient is being treated with er tapenem will need a midline and a short course of IV Invanz on discharge Dictation was produced using [employer] dictation software. please excuse any grammatical, word or spelling errors. Time with Patient: Less than 30
[2024-09-06 14:42] LABS: Basophils % (A) 1 %; Eosinophils # (A) 0.4 k/uL (0-0.7); Eosinophils % (A) 5 %; HCT 46.6 % (39.0-53.0); HGB 14.6 gm/dL (13.0-17.5); Hypochromasia Moderate; Lymphocytes # (A) 0.9 k/uL (1.0-4.8); Lymphocytes % (A) 12 %; MCH 28.7 pg (25.0-35.0); MCHC 31.4 g/dL (31.0-37.0); MCV 91.5 fL (80.0-100.0); Mean Platelet Volume 8.9; Monocytes # (A) 0.6 k/uL (0-1.0); Monocytes % (A) 8 %; Neutrophils # (A) 5.1 k/uL (1.3-7.7); Neutrophils % (A) 71 %; Platelet Count 146 k/uL (150-450); RDW 15.8 % (11.5-15.5); WBC 7.1 k/uL (3.8-10.6)
[2024-09-06 14:56] LABS: African American GFR (CKD) >90 (>60 ml/min/1.73 sqM); Anion Gap 7 mmol/L; Blood Urea Nitrogen 27 mg/dL (9-20); Calcium 7.9 mg/dL (8.4-10.2); Carbon Dioxide 23 mmol/L (22-30); Chloride 113 mmol/L (98-107); Glucose 124 mg/dL (74-99); Non-African American GFR(CKD) >90 (>60 ml/min/1.73 sqM); Potassium 3.5 mmol/L (3.5-5.1); Sodium 143 mmol/L (137-145)
[2024-09-06 16:22] LABS: Glucose,Whole Blood 89 mg/dL (70-110)
[2024-09-06 20:08] LABS: Glucose,Whole Blood 97 mg/dL (70-110)
[2024-09-07 03:23] LABS: Glucose,Whole Blood 110 mg/dL (70-110)
[2024-09-07 06:00] LABS: Glucose,Whole Blood 129 mg/dL (70-110)
[2024-09-07 09:18] LABS: Basophils # (A) 0.1 k/uL (0-0.2); Basophils % (A) 1 %; Eosinophils # (A) 0.4 k/uL (0-0.7); Eosinophils % (A) 5 %; HCT 42.9 % (39.0-53.0); HGB 13.9 gm/dL (13.0-17.5); Hypochromasia Slight; Lymphocytes # (A) 0.8 k/uL (1.0-4.8); Lymphocytes % (A) 10 %; MCH 29.2 pg (25.0-35.0); MCHC 32.3 g/dL (31.0-37.0); MCV 90.4 fL (80.0-100.0); Mean Platelet Volume 9.3; Monocytes # (A) 0.8 k/uL (0-1.0); Monocytes % (A) 10 %; Neutrophils # (A) 5.7 k/uL (1.3-7.7); Neutrophils % (A) 71 %; Platelet Count 155 k/uL (150-450); RBC 4.75 m/uL (4.30-5.90); RDW 15.9 % (11.5-15.5)
[2024-09-07 09:30] LABS: Potassium 3.6 mmol/L (3.5-5.1)
[2024-09-07 09:31] LABS: African American GFR (CKD) >90 (>60 ml/min/1.73 sqM); Anion Gap 6 mmol/L; Blood Urea Nitrogen 20 mg/dL (9-20); Calcium 7.9 mg/dL (8.4-10.2); Carbon Dioxide 27 mmol/L (22-30); Chloride 107 mmol/L (98-107); Glucose 130 mg/dL (74-99); Non-African American GFR(CKD) >90 (>60 ml/min/1.73 sqM); Sodium 140 mmol/L (137-145)
--- NOTE | 2024-09-07 09:48 | P.PN ---
Subjective [facility] [address], [place] [address] Progress Note - SOAP Patient Name: Chris Marvin Date of : 1960 Patient Status: Inpatient Attending Provider: Chanelle Queen Date: 09/06/24 10:52 Initialization Date: 09/06/24 10:52 Subjective Principal diagnosis: Chris is a 64-year-old male who had presented to the hospital on 09/04 for altered mental status. He was noted to be hypernatremic with a na level of 160 upon admission. He was started on d5w with improvement of his na level. 09/06-sodium level had down trended from 1 50-1 45. His potassium was noted be 5.3. He is currently at goal in terms of his enteral feeding and is at 55 cc an hour. Objective - Vital Signs Vital signs: Vital Signs Temp 99.0 F 09/07/24 03:13 Pulse 87 09/07/24 03:13 Resp 16 09/07/24 03:13 BP 136/87 09/07/24 03:13 Pulse Ox 98 09/07/24 03:13 FiO2 Intake & Output 09/06/24 09/07/24 09/07/24 18:59 06:59 18:59 Intake Total 50 165 Output Total 650 Balance -600 165 Intake: Tube Feeding 50 165 Output: Urine 650 Other: Voiding Method Indwelling Catheter Indwelling Catheter - Exam General: male appears stated age. awake but not following any commands Derm: warm, dry Head: atraumatic, normocephalic, symmetric Eyes: EOMI, no lid lag, anicteric sclera, pupils equal round reactive to light ENT: Nose and ears atraumatic, no thrush, no pharyngeal erythema Neck: No thyromegaly, no cervical lymphadenopathy, trachea midline, supple Mouth: no lip lesion, mucus membranes moist Cardiovascular: S1S2 reg, no murmur, p Lungs: Coarse crackles bilaterally Abdominal: soft, nontender to palpation, no guarding, no appreciable organomegaly, normal bowel sounds, peg tube noted and attached to enteral feeding Ext: ble appear contracted Neuro: awake but not following any commands. Psych: calm - Labs CBC & Chem 7: 09/07/24 08:04 09/07/24 08:04 Labs: Abnormal Lab Results - Last 24 Hours (Table) 09/06/24 09/06/24 09/06/24 Range/Units 11:51 14:19 14:19 RDW 15.8 H (11.5-15.5) % Plt Count 146 L (150-450) k/uL Lymphocytes # 0.9 L (1.0-4.8) k/uL Chloride 113 H (98-107) mmol/L BUN 27 H (9-20) mg/dL Creatinine (0.66-1.25) mg/dL Glucose 124 H (74-99) mg/dL POC Glucose (mg/dL) 144 H (70-110) mg/dL Calcium 7.9 L (8.4-10.2) mg/dL 09/07/24 09/07/24 09/07/24 Range/Units 05:59 08:04 08:04 RDW 15.9 H (11.5-15.5) % Plt Count (150-450) k/uL Lymphocytes # 0.8 L (1.0-4.8) k/uL Chloride (98-107) mmol/L BUN (9-20) mg/dL Creatinine 0.58 L (0.66-1.25) mg/dL Glucose 130 H (74-99) mg/dL POC Glucose (mg/dL) 129 H (70-110) mg/dL Calcium 7.9 L (8.4-10.2) mg/dL Microbiology - Last 24 Hours (Table) 09/04/24 05:06 Blood Culture Gram Stain - Preliminary Blood Blood Culture - Preliminary Staphylococcus capitis Molecular ID 09/04/24 04:43 Urine Culture - Final Urine,Voided Providencia stuartii Providencia stuartii#2 Assessment and Plan Assessment: Assessment and Plan Assessment: #) Hypernatremia, likely from lack of free water intake. Continue free water flush at 200 cc every 4 hours. Levels currently 145. Recheck sodium level this afternoon and daily labs afterwards. #) acute metabolic encephalopathy likely from electrolyte derangements. continue serial neuro checks. ? Appears to be at baseline #) Bactermia with bcx positive for Staphylococcus capitis. This is likely a skin contaminant. Monitor off antibiotics #) ?Hypoxia etiology appears unclear. cxr negative for infiltrate. rsv/covid-19 negative. monitor ability to tolerate secretions. supplemental NC as tolerates. aggressive pulmonary hygiene #) Sacral ulcer. Every 2 hours repositioning #) Providencia stuartii cystitis. Aggarwal catheter bag was exchanged to the ER. Continue IV ertapenem #) Multiple sclerosis, severe. Unable to perform adls and appears mostly bedbound #) Chronic aggarwal cathter- exchange aggarwal catheter monthyl at [facility] #) Seizure disorder- lactosmide solution not available to be placed via peg tube at this institution. continue iv lacmoside 150 mg bid. continue carbamazepine 100 mg tid #) Cognitive impairment #) Peg tube dependent- continue jevity 1.5 at goal rate of 55 cc/hr 09/07 Patient seen and examined at bedside Appears slightly tachypneic today, coarse crackles heard bilaterally Fluids running, nurse communication to discontinue All fluids have been discontinued in the chart on 09/05 Will give 1 dose of Lasix 20 mg IV push Monitor I's and O's Mucomyst nebulizer ordered Continue to keep fluids to goal Dispo: med/surge, will return to [facility] upon discharge, possibly on Sunday dvt ppx: lovenox 40 mg daily Time with Patient: Greater than 30
--- NOTE | 2024-09-07 11:35 | P.PN ---
Subjective Progress Note Date: 09/07/24 Patient is seen in follow-up for hypernatremia. Sodium level improved 140. Currently receiving half-normal saline. Nonverbal. Vital signs are stable. General: Resting in bed. HEENT: On nasal cannula. LUNGS: Scattered rhonchi. HEART: Rate and Rhythm are regular. ABDOMEN: No distention. PEG tube noted. EXTREMITITES: No edema. Objective - Vital Signs Vital signs: Vital Signs Temp 99.0 F 09/07/24 03:13 Pulse 87 09/07/24 03:13 Resp 16 09/07/24 03:13 BP 136/87 09/07/24 03:13 Pulse Ox 98 09/07/24 03:13 FiO2 Intake & Output 09/06/24 09/07/24 09/07/24 18:59 06:59 18:59 Intake Total 50 165 Output Total 650 Balance -600 165 Intake: Tube Feeding 50 165 Output: Urine 650 Other: Voiding Method Indwelling Catheter Indwelling Catheter - Labs CBC & Chem 7: 09/07/24 08:04 09/07/24 08:04 Labs: Abnormal Lab Results - Last 24 Hours (Table) 09/06/24 09/06/24 09/06/24 Range/Units 08:11 11:51 14:19 RDW 15.8 H (11.5-15.5) % Plt Count 146 L (150-450) k/uL Lymphocytes # 0.9 L (1.0-4.8) k/uL Potassium 5.3 H (3.5-5.1) mmol/L Chloride 117 H (98-107) mmol/L BUN 31 H (9-20) mg/dL Glucose 129 H (74-99) mg/dL POC Glucose (mg/dL) 144 H (70-110) mg/dL Calcium 7.9 L (8.4-10.2) mg/dL 09/06/24 09/07/24 09/07/24 Range/Units 14:19 05:59 08:04 RDW 15.9 H (11.5-15.5) % Plt Count (150-450) k/uL Lymphocytes # 0.8 L (1.0-4.8) k/uL Potassium (3.5-5.1) mmol/L Chloride 113 H (98-107) mmol/L BUN 27 H (9-20) mg/dL Glucose 124 H (74-99) mg/dL POC Glucose (mg/dL) 129 H (70-110) mg/dL Calcium 7.9 L (8.4-10.2) mg/dL Microbiology - Last 24 Hours (Table) 09/04/24 05:06 Blood Culture Gram Stain - Preliminary Blood Blood Culture - Preliminary Staphylococcus capitis Molecular ID 09/04/24 04:43 Urine Culture - Final Urine,Voided Providencia stuartii Providencia stuartii#2 Assessment and Plan Assessment: 1. Hypernatremia from lack of oral water intake. Sodium level 160 on admission and is 140 today. 2. Acute kidney injury secondary to vasomotor nephropathy from hypovolemia. Creatinine 1.25 on admission -0.6 today. 3. Acute hypoxic respiratory failure. On 3 L nasal cannula. 4. Paraplegia with chronic Stein catheter. 5. Gram-positive bacteremia on antibiotics. Plan: Discontinue D5W. Free water flushes with tube feeds Follow-up cultures. Continue to hold lisinopril as blood pressure is on the lower side. Avoid nephrotoxins. Continue to monitor renal function and urine output.
[2024-09-07 11:39] LABS: Glucose,Whole Blood 135 mg/dL (70-110)
[2024-09-07] MEDS: ACETYLCYSTEINE 800 MG/4 ML VIAL INHALATION SCH (11:49)
[2024-09-07] MEDS: FUROSEMIDE 10 MG/ML 2 ML VIAL IV ONE (12:02)
[2024-09-07 16:58] LABS: Glucose,Whole Blood 94 mg/dL (70-110)
[2024-09-07 21:07] LABS: Glucose,Whole Blood 104 mg/dL (70-110)
--- NOTE | 2024-09-07 23:00 | P.PN ---
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 On today's evaluation that is 09/07/2024, Patient is afebrile patient is currently on 2 L nasal cannula oxygen seem to be breathing comfortably patient was not noted to be any distressed no vomiting diarrhea any changes reported by nursing staff patient cannot provide any history. Patient white count is 8.0, creatinine 0.58 urine is growing procidencia, blood culture with Streptococcus capitis Objective - Vital Signs Vital signs: Vital Signs Temp 99.0 F 09/07/24 03:13 Pulse 87 09/07/24 03:13 Resp 16 09/07/24 03:13 BP 136/87 09/07/24 03:13 Pulse Ox 98 09/07/24 03:13 FiO2 Intake & Output 09/06/24 09/07/24 09/07/24 18:59 06:59 18:59 Intake Total 50 165 Output Total 650 Balance -600 165 Intake: Tube Feeding 50 165 Output: Urine 650 Other: Voiding Method Indwelling Catheter Indwelling Catheter - Exam GENERAL DESCRIPTION: An elderly male lying in bed in no distress RESPIRATORY SYSTEM: Unlabored breathing , decreased breath sounds at bases HEART: S1 S2 regular rate and rhythm , ABDOMEN: Soft , no tenderness EXTREMITIES: No edema feet - Labs CBC & Chem 7: 09/07/24 08:04 09/07/24 08:04 Labs: Abnormal Lab Results - Last 24 Hours (Table) 09/06/24 09/06/24 09/06/24 Range/Units 11:51 14:19 14:19 RDW 15.8 H (11.5-15.5) % Plt Count 146 L (150-450) k/uL Lymphocytes # 0.9 L (1.0-4.8) k/uL Chloride 113 H (98-107) mmol/L BUN 27 H (9-20) mg/dL Creatinine (0.66-1.25) mg/dL Glucose 124 H (74-99) mg/dL POC Glucose (mg/dL) 144 H (70-110) mg/dL Calcium 7.9 L (8.4-10.2) mg/dL 09/07/24 09/07/24 09/07/24 Range/Units 05:59 08:04 08:04 RDW 15.9 H (11.5-15.5) % Plt Count (150-450) k/uL Lymphocytes # 0.8 L (1.0-4.8) k/uL Chloride (98-107) mmol/L BUN (9-20) mg/dL Creatinine 0.58 L (0.66-1.25) mg/dL Glucose 130 H (74-99) mg/dL POC Glucose (mg/dL) 129 H (70-110) mg/dL Calcium 7.9 L (8.4-10.2) mg/dL Microbiology - Last 24 Hours (Table) 09/04/24 05:06 Blood Culture Gram Stain - Preliminary Blood Blood Culture - Preliminary Staphylococcus capitis Molecular ID 09/04/24 04:43 Urine Culture - Final Urine,Voided Providencia stuartii Providencia stuartii#2 Assessment and Plan (1) Pressure injury of sacral region, stage 2 Current Visit: Yes Status: Acute Code(s): L89.152 - PRESSURE ULCER OF SACRAL REGION, STAGE 2 SNOMED Code(s): 57538789037196 (2) UTI (urinary tract infection) due to urinary indwelling catheter Current Visit: Yes Status: Acute Code(s): T83.511A - I/I REACT D/T INDWELLING URETHRAL CATHETER, INIT; N39.0 - URINARY TRACT INFECTION, SITE NOT SPECIFIED SNOMED Code(s): 873394633 (3) Allergy to multiple antibiotics Current Visit: No Status: Acute Code(s): Z88.1 - ALLERGY STATUS TO OTHER ANTIBIOTIC AGENTS SNOMED Code(s): 513558106 (4) Positive blood culture Current Visit: No Status: Acute Code(s): R78.81 - BACTEREMIA SNOMED Code(s): 710495209 Plan: 1patient presented to hospital with sepsis in this patient who did have a elevated white count tachycardia meeting currently for SIRS source likely catheter assisted UTI and significant amount of purulent urine was noticed at the time of change of his Stein catheter 2patient with multiple antibiotic ALLERGIES that would limit the number of antibiotic safe to use 3patient with a possible previous staph capitis likely skin contamination no need for vancomycin, blood culture has been repeated document clearance. 4urine is growing procidencia in the urine for which the patient is being treat ed with ertapenem, plan will be for a 7-day course of Invanz on discharge midline ordered Dictation was produced using [employer] dictation software. please excuse any grammatical, word or spelling errors. Time with Patient: Less than 30
[2024-09-08 00:04] LABS: Glucose,Whole Blood 82 mg/dL (70-110)
[2024-09-08 06:26] LABS: Glucose,Whole Blood 115 mg/dL (70-110)
[2024-09-08 12:07] LABS: Glucose,Whole Blood 97 mg/dL (70-110)
--- NOTE | 2024-09-08 12:33 | P.PN ---
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 On today's evaluation that is 09/08/2024, patient has been afebrile, patient is breathing comfortably and is currently on 3 L nasal cannula oxygen, patient does not seem to be in any distress though a slight Tachypnea was noted no vomiting or diarrhea has been reported. Labs pending from this morning white count normal at 8.0 as of yesterday blood culture has been negative Objective - Vital Signs Vital signs: Vital Signs Temp 98.0 F 09/08/24 07:19 Pulse 90 09/08/24 08:51 Resp 21 09/08/24 07:19 BP 119/76 09/08/24 07:19 Pulse Ox 100 09/08/24 07:19 FiO2 Intake & Output 09/07/24 09/08/24 09/08/24 18:59 06:59 18:59 Intake Total 165 Output Total 1800 400 Balance -1635 -400 Weight 91 kg Intake: Tube Feeding 165 Output: Urine 1800 400 Other: Voiding Method Indwelling Catheter Indwelling Catheter - Exam GENERAL DESCRIPTION: An elderly male lying in bed in no distress RESPIRATORY SYSTEM: Unlabored breathing , decreased breath sounds at bases HEART: S1 S2 regular rate and rhythm , ABDOMEN: Soft , no tenderness EXTREMITIES: No edema feet - Labs CBC & Chem 7: 09/07/24 08:04 09/08/24 11:39 Labs: Abnormal Lab Results - Last 24 Hours (Table) 09/07/24 09/08/24 Range/Units 11:37 06:24 POC Glucose (mg/dL) 135 H 115 H (70-110) mg/dL Microbiology - Last 24 Hours (Table) 09/06/24 14:17 Blood Culture - Preliminary Blood 09/04/24 05:06 Blood Culture Gram Stain - Final Blood Blood Culture - Final Staphylococcus capitis Molecular ID Assessment and Plan (1) Pressure injury of sacral region, stage 2 Current Visit: Yes Status: Acute Code(s): L89.152 - PRESSURE ULCER OF SACRAL REGION, STAGE 2 SNOMED Code(s): 40779062791066 (2) UTI (urinary tract infection) due to urinary indwelling catheter Current Visit: Yes Status: Acute Code(s): T83.511A - I/I REACT D/T INDWELLING URETHRAL CATHETER, INIT; N39.0 - URINARY TRACT INFECTION, SITE NOT SPECIFIED SNOMED Code(s): 824493779 (3) Allergy to multiple antibiotics Current Visit: No Status: Acute Code(s): Z88.1 - ALLERGY STATUS TO OTHER ANTIBIOTIC AGENTS SNOMED Code(s): 476896134 (4) Positive blood culture Current Visit: No Status: Acute Code(s): R78.81 - BACTEREMIA SNOMED Code(s): 247940738 Plan: 1patient presented to hospital with sepsis in this patient who did have a elevated white count tachycardia meeting currently for SIRS source likely c atheter assisted UTI and significant amount of purulent urine was noticed at the time of change of his Stein catheter 2patient with multiple antibiotic ALLERGIES that would limit the number of antibiotic safe to use 3patient with a possible previous staph capitis likely skin contamination no need for vancomycin, blood culture has been repeated which are negative so far 4urine is growing procidencia in the urine for which the patient is being treated with ertapenem, 5- plan is for a 7-day course of Invanz on discharge and close outpatient follow-up Dictation was produced using [employer] software. please excuse any grammatical, word or spelling errors.
--- NOTE | 2024-09-08 13:47 | P.PN ---
Subjective Progress Note Date: 09/08/24 Hospital Course: 64-year-old male with past medical history of debilitating MS, bedbound, chronic indwelling Stein catheter with history of recurrent catheter associated UTI, pneumonia, who was sent to the ER from assisted due to mental status change and was found to have purulent urine, Stein catheter was exchanged and patient was admitted for further management sepsis secondary to catheter associated UTI, patient has history of multiple drug allergies, ID consulted, patient was start ed on Invanz, plan is for 7 days course on discharge with close ID follow-up, urine growing procidentia Subjective: Was seen and examined at bedside, patient is nonverbal, unable to obtain ROS Pertinent positives and negatives as discussed above, a complete review of systems was performed and all other systems are negative. Vitals Signs Reviewed. General chronically ill-appearing Derm: [warm], [dry] Head: [atraumatic], [normocephalic], [symmetric] Eyes: [EOMI], [no lid lag], [anicteric sclera] Mouth: [no lip lesion], [mucus membranes moist] Cardiovascular: [S1S2 reg], [no murmur] Lungs: No accessory muscle use, coarse breath sounds Abdominal: [soft], [ nontender to palpation], [no guarding], [no appreciable organomegaly], PEG tube in place Ext: Muscle atrophy, contractures Psych: Awake Data Reviewed Today: Pertinent Labs: Glucose WNL, BMP pending Assessment and Plan: [Active:] Sepsis secondary to catheter associated UTI Bacteremia with cultures positive for Staphylococcus capitis, likely skin contaminant Acute hypoxic respiratory failure, unclear etiology -ID following, continue current antibiotics -Patient is afebrile -CBC ordered, follow-up repeat blood cultures, preliminary negative -Continue supplemental oxygen, wean off as tolerated, repeat chest x-ray ordered Acute hypernatremia likely due to dehydration, resolved -IV fluids discontinued due to worsening respiratory status, continue free water flushes 200 cc every 4 hours -Follow-up BMP pending malFunctioning PEG tube: Surgery consulted [Chronic:] Severe debilitating multiple sclerosis Chronic indwelling Stein catheter Seizure disorder:lactosmide solution not available to be placed via peg tube at this institution. continue iv lacmoside 150 mg bid. continue carbamazepine 100 mg tid PEG tube dependent, continue Jevity, currently at goal of 55 cc/h DVT ppx: Lovenox Anticipated discharge place: Back to assisted Anticipated discharge time: 24-48 hours Objective - Vital Signs Vital signs: Vital Signs Temp 98.0 F 09/08/24 07:19 Pulse 94 09/08/24 12:07 Resp 21 09/08/24 07:19 BP 119/76 09/08/24 07:19 Pulse Ox 100 09/08/24 07:19 FiO2 Intake & Output 09/07/24 09/08/24 09/08/24 18:59 06:59 18:59 Intake Total 165 Output Total 1800 400 700 Balance -1635 -400 -700 Weight 91 kg Intake: Tube Feeding 165 Output: Urine 1800 400 700 Other: Voiding Method Indwelling Catheter Indwelling Catheter # Bowel Movements 1 - Labs CBC & Chem 7: 09/07/24 08:04 09/08/24 11:39 Labs: Abnormal Lab Results - Last 24 Hours (Table) 09/08/24 Range/Units 06:24 POC Glucose (mg/dL) 115 H (70-110) mg/dL Microbiology - Last 24 Hours (Table) 09/06/24 14:17 Blood Culture - Preliminary Blood 09/04/24 05:06 Blood Culture Gram Stain - Final Blood Blood Culture - Final Staphylococcus capitis Molecular ID
--- NOTE | 2024-09-08 14:35 | P.GSCN ---
History of Present Illness Consult date: 09/08/24 History of present illness: CHIEF COMPLAINT: Altered mental status HISTORY OF PRESENT ILLNESS: This is a 64-year-old male with a known history of multiple sclerosis, nonverbal and bedridden. He presented with altered mental status and evidence of UTI. He is a chronic drooling Stein catheter. Surgical service has been consulted for clogged PEG tube. PEG tube had been functioning as of yesterday. Nursing staff did try to flush the PEG tube with no improvement. Patient had the PEG tube placed in August 2020. PAST MEDICAL HISTORY: Multiple sclerosis, deep Vein Thrombosis (DVT), GERD/Reflux, Hypertension, Musculoskeletal Disorder, Neurologic Disorder, Pneumonia, Seizure Disorder, Skin Disorder PAST SURGICAL HISTORY: Peg tube placement MEDICATIONS: See below ALLERGIES: See below SOCIAL HISTORY: No illicit drug use. REVIEW OF SYSTEMS: CONSTITUTIONAL: Denies fever or chills. HEENT: Denies blurred vision, vision changes, or eye pain. Denies hemoptysis CARDIOVASCULAR: Denies chest pain or pressure. RESPIRATORY: No shortness of breath. GASTROINTESTINAL: See HPI for pertinent findings HEMATOLOGIC: Denies bleeding disorders. GENITOURINARY: Denies any blood in urine or increased urinary frequency. SKIN: Denies pruitis. Denies rash. PHYSICAL EXAM: VITAL SIGNS: Reviewed GENERAL: Well-developed in no acute distress. ABDOMEN: Soft. Nondistended. Nontender. PEG tube site clean dry and intact NEUROLOGIC: Awake. Nonverbal LABORATORY DATA: WBC 8.0 Hgb 13.9 platelets 155 sodium 140 potassium 3.6 creatinine 0.58 IMAGING: ASSESSMENT: 1. Malfunctioning PEG tube PLAN: -Patient scheduled for EGD with PEG tube replacement tomorrow with Dr. Case -Try to unplug PEG tube with Pepsi -Continue to hold tube feeds Physician Heading Pinner note has been reviewed by physician. Signing provider agrees with the documented findings, assessment, and plan of care. Past Medical History Past Medical History: Deep Vein Thrombosis (DVT), GERD/Reflux, Hypertension, Musculoskeletal Disorder, Neurologic Disorder, Pneumonia, Seizure Disorder, Skin Disorder Additional Past Medical History / Comment(s): Pt diagnosed with MS at the age of 39 yrs, seizure/pneumonia/UTI with sepsis/respirtory failure/vented, cognitive impairment, sister states when he is feeling well he could speak a few words/nod head appropriately/give thumbs up/roll eyes but when ill is nonverbal, pt has d ysphagia/NPO with peg tube, contractures, last seizure 07/2020, trigeminal neuralgia, dysarthria/anarthria/neurogenic bladder with IDC-UTIs/sepsis, multiple pneumonias, recent seizure-last one 07/03/20, incontinent of stool, pt has had decubitus ulcer coccyx-sister unsure of skin condition at this time, past anemia r/t heparin/epistaxiis which involved nasal packing/transfusions, DVT bilateral arms, hypoxia, oxygen at 2L/NC, L femoral head fracture History of Any Multi-Drug Resistant Organisms: ESBL, MRSA, Other MDRO Year Discovered:: 03/09/21-MRSA; 11/23/19 ESBL-E.coli MDRO Source:: Abdomen-Peg site MRSA; Urine -ESBL Past Surgical History: Tonsillectomy Additional Past Surgical History / Comment(s): Gastrostomy, peg tube, I&D coccyx decubitius, bronchoscopy, bilateral lasik eye surgery. Past Anesthesia/Blood Transfusion Reactions: No Reported Reaction Additional Past Anesthesia/Blood Transfusion Reaction / Comm: Pt has received blood in past without reaction. Past Psychological History: Depression Smoking Status: Never smoker Past Alcohol Use History: None Reported Past Drug Use History: None Reported - Past Family History Father Family Medical History: Myocardial Infarction (MA) Mother Family Medical History: Hypertension, Myocardial Infarction (MA) Additional Family Medical History / Comment(s): Mother of a MA at the age of 73 yrs. Medications and Allergies Home Medications Medication Instructions Recorded Confirmed Type Aspirin 81 mg PEG/G-TUBE DAILY 11/27/20 09/04/24 History Acetaminophen Tab [Tylenol] 650 mg PEG/G-TUBE Q4H PRN 06/13/21 09/04/24 History Metoprolol Tartrate [Lopressor] 50 mg PEG/G-TUBE BID 06/13/21 09/04/24 History carBAMazepine [carBAMazepine Oral 100 mg PEG/G-TUBE TID 07/02/21 09/04/24 History Susp] Lactulose 20 gm PEG/G-TUBE TID 01/03/22 09/04/24 History Scopolamine [Scopolamine 1 MG/72 1 patch TRANSDERM Q72H 01/03/22 09/04/24 History HR patch] oxyBUTYnin chloride 5 mg PEG/G-TUBE TID 12/19/22 09/04/24 History Atorvastatin [Lipitor] 40 mg PEG/G-TUBE HS 07/14/23 09/04/24 History Famotidine [Pepcid] 20 mg PEG/G-TUBE DAILY 07/14/23 09/04/24 History polyethylene glycoL 3350 [Miralax] 17 gm PEG/G-TUBE HS 10/17/23 09/04/24 History Ipratropium-Albuterol Nebulize 3 ml INHALATION RT-TID 11/18/23 09/04/24 History [Duoneb 0.5 mg-3 mg/3 ml Soln] Lacosamide [Vimpat Oral Soln] 150 mg PEG/G-TUBE BID 11/18/23 09/04/24 History lisinopriL [Zestril] 2.5 mg PEG/G-TUBE DAILY 11/18/23 09/04/24 History Baclofen 5 mg PEG/G-TUBE TID 07/25/24 09/04/24 History Cranberry 450mg 1 tab PEG/G-TUBE DAILY 07/25/24 09/04/24 History Prostat 30 ml PEG/G-TUBE DAILY 07/25/24 09/04/24 History amantadine HCL [Amantadine] 100 mg PEG/G-TUBE DAILY 07/25/24 09/04/24 History bisacodyL [Dulcolax] 10 mg RECTAL DAILY PRN 07/25/24 09/04/24 History Allergies Allergy/AdvReac Type Severity Reaction Status Date / Time meropenem [From Merrem] Allergy Rash/Hives Verified 09/04/24 15:04 ceftolozane [From Zerbaxa] AdvReac Rapid Verified 09/04/24 07:32 Heart Rate tazobactam [From Zerbaxa] AdvReac Rapid Verified 09/04/24 07:32 Heart Rate Surgical - Exam Vital Signs Temp Pulse Resp BP Pulse Ox 98.1 F 92 12 113/80 99 09/04/24 04:27 09/04/24 04:27 09/04/24 04:27 09/04/24 04:27 09/04/24 04:27 Results - Labs 09/07/24 08:04 09/08/24 11:39 Abnormal Lab Results - Last 24 Hours (Table) 12/09/24 Range/Units 06:24 POC Glucose (mg/dL) 115 H (70-110) mg/dL Microbiology - Last 24 Hours (Table) 09/06/24 14:17 Blood Culture - Preliminary Blood 09/04/24 05:06 Blood Culture Gram Stain - Final Blood Blood Culture - Final Staphylococcus capitis Molecular ID Diabetes panel 09/08/24 Range/Units 11:39 Sodium 141 (137-145) mmol/L Pituitary panel 09/08/24 Range/Units 11:39 Sodium 141 (137-145) mmol/L Adrenal panel 09/08/24 Range/Units 11:39 Sodium 141 (137-145) mmol/L
[2024-09-08 15:24] VITALS: BMI 30.4
--- NOTE | 2024-09-08 16:23 | XR ---
EXAMINATION TYPE: XR chest 1V portable DATE OF EXAM: 09/08/2024 COMPARISON: 09/04/2024 CLINICAL INDICATION: Male, 64 years old with history of hypoxia; TECHNIQUE: Single frontal view of the chest is obtained. FINDINGS: There is an increasing focal opacity in the right lower lung zone suspicious for an acute p neumonia. There is no change in the diffuse interstitial prominence likely chronic in nature. There is no pleural effusion or pneumothorax. The heart size is normal for the technique. There are m ultiple healed left rib fractures. Impression: Findings suspicious for developing pneumonia in the right lower lobe. Short-term follow-u p is recommended. [facility], , 09/08/2024 4:20 PM
[2024-09-08 17:08] LABS: Basophils % (A) 1 %; Eosinophils # (A) 0.5 k/uL (0-0.7); Eosinophils % (A) 6 %; HCT 44.4 % (39.0-53.0); HGB 14.2 gm/dL (13.0-17.5); Hypochromasia Slight; Lymphocytes # (A) 1.3 k/uL (1.0-4.8); Lymphocytes % (A) 17 %; MCH 28.9 pg (25.0-35.0); MCHC 31.9 g/dL (31.0-37.0); MCV 90.6 fL (80.0-100.0); Mean Platelet Volume 9.3; Monocytes # (A) 0.6 k/uL (0-1.0); Monocytes % (A) 9 %; Neutrophils # (A) 4.8 k/uL (1.3-7.7); Neutrophils % (A) 64 %; Platelet Count 155 k/uL (150-450); RDW 15.9 % (11.5-15.5); WBC 7.4 k/uL (3.8-10.6)
[2024-09-08 18:16] LABS: Glucose,Whole Blood 77 mg/dL (70-110)
--- NOTE | 2024-09-08 18:20 | P.PN ---
Subjective Patient is seen for follow-up for hyponatremia. Serum sodium was 140 yesterday. No labs available from today. Objective - Vital Signs Vital signs: Vital Signs Temp 97.6 F 09/08/24 14:47 Pulse 80 09/08/24 14:47 Resp 19 09/08/24 14:47 BP 131/80 09/08/24 14:47 Pulse Ox 100 09/08/24 14:47 FiO2 Intake & Output 09/07/24 09/08/24 09/08/24 18:59 06:59 18:59 Intake Total 165 Output Total 1800 400 700 Balance -1635 -400 -700 Weight 91 kg 91 kg Intake: Tube Feeding 165 Output: Urine 1800 400 700 Other: Voiding Method Indwelling Catheter Indwelling Catheter Indwelling Catheter # Bowel Movements 1 - Exam Patient is awake. Comfortable. No acute distress. He is not able to communicate much. Examination of the heart S1 and S2 Examination of the lungs bilateral breath sounds are heard Abdomen is soft nontender Examination of lower extremities shows no significant edema. - Labs CBC & Chem 7: 09/08/24 16:35 09/08/24 11:39 Labs: Abnormal Lab Results - Last 24 Hours (Table) 09/08/24 09/08/24 Range/Units 06:24 16:35 RDW 15.9 H (11.5-15.5) % POC Glucose (mg/dL) 115 H (70-110) mg/dL Microbiology - Last 24 Hours (Table) 09/06/24 14:17 Blood Culture - Preliminary Blood 09/04/24 05:06 Blood Culture Gram Stain - Final Blood Blood Culture - Final Staphylococcus capitis Molecular ID Assessment and Plan Assessment: 1. Hypernatremia from lack of oral water intake. Sodium level 160 on admission and is 140 from yesterday. D5W discontinued and patient is maintained on free water with tube feeding 2. Acute kidney injury secondary to vasomotor nephropathy from hypovolemia. Creatinine 1.25 on admission -0.6 yesterday. 3. Acute hypoxic respiratory failure. On 3 L nasal cannula. 4. Paraplegia with chronic Stein catheter. 5. Gram-positive bacteremia on antibiotics. Plan: Repeat sodium today and in a.m. Increase free water with tube feeding if serum sodium is higher tomorrow. Continue off of D5W
[2024-09-08 21:04] LABS: Glucose,Whole Blood 74 mg/dL (70-110)
[2024-09-08] MEDS ORDERED: DEXTROSE 50% SYRINGE 50 ML IVP PRN ×3 (21:55→21:58)
[2024-09-09 00:08] LABS: Glucose,Whole Blood 73 mg/dL (70-110)
[2024-09-09] MEDS ORDERED: LORazepam 0.5 MG TAB PO PRN (03:08)
[2024-09-09] MEDS: methylPREDNISolone SOD SUCCI 125 MG/2 ML VIAL IV STA (03:21)
[2024-09-09] MEDS: IPRATROPIUM-ALBUTEROL 3 ML NEB INHALATION PRN (03:26)
[2024-09-09] MEDS: ACETYLCYSTEINE 800 MG/4 ML VIAL INHALATION PRN (03:27)
[2024-09-09 06:35] LABS: Glucose,Whole Blood 111 mg/dL (70-110)
[2024-09-09 08:49] LABS: Basophils # (A) 0.02 X 10*3/uL (0.00-0.10); Basophils % (A) 0.3 %; Eosinophils # (A) 0.09 X 10*3/uL (0.04-0.35); Eosinophils % (A) 1.4 %; HGB 14.1 g/dL (13.0-17.0); Lymphocytes # (A) 0.38 X 10*3/uL (0.90-5.00); Lymphocytes % (A) 5.8 %; MCH 28.7 pg (27.0-32.0); MCHC 31.3 g/dL (32.0-37.0); MCV 91.5 FL (80.0-97.0); Mean Platelet Volume 12.4 FL (9.5-12.2); Monocytes # (A) 0.12 X 10*3/uL (0.20-1.00); Monocytes % (A) 1.8 %; NRBC Per 100 WBC 0 X 10*3/uL (0.00-0.01); Neutrophils # (A) 5.92 X 10*3/uL (1.80-7.70); Neutrophils % (A) 89.8 %; Platelet Count 163 X 10*3/uL (140-440); RBC 4.92 X 10*6/uL (4.40-5.60); RDW 15.7 % (11.5-14.5); WBC 6.59 X 10*3/uL (4.50-10.00)
[2024-09-09 10:44] LABS: BUN/Creat Ratio 24.67 Ratio (12.00-20.00); Blood Urea Nitrogen 14.8 mg/dL (9.0-27.0); Calcium 8.2 mg/dL (8.7-10.3); Carbon Dioxide 21.8 mmol/L (21.6-31.8); Chloride 111 mmol/L (96-109); Glucose 131 mg/dL (70-110); Potassium 4.4 mmol/L (3.5-5.5); Sodium 143 mmol/L (135-145)
[2024-09-09 11:15] LABS: Glucose,Whole Blood 145 mg/dL (70-110)
[2024-09-09] MEDS: IV FLUID CONTINUATION 1,000 ML IV ONE (11:51)
[2024-09-09] MEDS ORDERED: PROPOFOL 10 MG/ML 20 ML VIAL IV ONE (11:55)
[2024-09-09] MEDS ORDERED: LIDOCAINE 2% (PF) 20 MG/ML 5 ML VIAL ONE (11:55)
--- NOTE | 2024-09-09 12:09 | P.OP ---
Date of Procedure: 09/09/24 Preoperative Diagnosis: PEG tube malfunction Postoperative Diagnosis: PEG tube malfunction Procedure(s) Performed: EGD with PEG tube placement Anesthesia: MAC Surgeon: Enrique Case Pathology: none sent Condition: stable Disposition: PACU Description of Procedure: the patient's placed on the endoscopy table in the lateral position. He received IV sedation. The gastro-/oropharynx. Scope was placed in the stomach. The patient's feeding tube was visualized. The balloon was raspirated the saline was removed. The malfunction PEG tube was removed. This point a 16- Bulgarian replacement PEG tube was placed under direct vision the stomach. The balloon was insufflated with 5 mL of saline. Bolster was secured. Patient top procedure well. He was sent to the floor in stable condition. His tube feeds can resume today.
--- NOTE | 2024-09-09 12:53 | P.PN ---
Subjective Progress Note Date: 09/09/24 Principal diagnosis: Reason for follow-up is catheter assisted UTI and positive blood culture Patient is a 64-year-old male with a past medical history significant for MS in this patient who is in a bedbound state did have a chronic indwelling Stein catheter for urinary retention and history of recurrent catheter assisted UTI as well as pneumonia patient has been sent to the ER from the local intermediate for evaluation of mental status changes, patient noted to have significant purulent urine at the time of his Stein catheter changed by the nursing staff in the ER concerning for catheter assisted UTI. On today's evaluation that is 09/09/2024, Patient is afebrile this morning patient is breathing comfortably currently on 3 L current oxygen patient apparently has PEG tube malfunctioning and is scheduled for another PEG tube placement today patient does not seem to be any distress no vomiting or diarrhea has been reported. Patient white count 6.59 creatinine 0.6 Objective - Vital Signs Vital signs: Vital Signs Temp 97.7 F 09/09/24 06:53 Pulse 86 09/09/24 08:55 Resp 18 09/09/24 06:53 BP 142/94 09/09/24 06:53 Pulse Ox 98 09/09/24 06:53 FiO2 Intake & Output 09/08/24 09/09/24 09/09/24 18:59 06:59 18:59 Output Total 700 400 Balance -700 -400 Weight 91 kg 90.5 kg Output: Urine 700 400 Other: Voiding Method Indwelling Catheter Indwelling Catheter # Bowel Movements 1 - Exam GENERAL DESCRIPTION: An elderly male lying in bed in no distress RESPIRATORY SYSTEM: Unlabored breathing , decreased breath sounds at bases HEART: S1 S2 regular rate and rhythm , ABDOMEN: Soft , no tenderness EXTREMITIES: No edema feet - Labs CBC & Chem 7: 09/09/24 06:28 09/09/24 06:28 Labs: Abnormal Lab Results - Last 24 Hours (Table) 09/08/24 09/09/24 09/09/24 Range/Units 16:35 06:28 06:33 MCHC 31.3 L (32.0-37.0) g/dL RDW 15.9 H 15.7 H (11.5-15.5) % MPV 12.4 H (9.5-12.2) FL Immature Gran # 0.06 H (0.00-0.04) X 10*3/uL Lymphocytes # 0.38 L (0.90-5.00) X 10*3/uL Monocytes # 0.12 L (0.20-1.00) X 10*3/uL POC Glucose (mg/dL) 111 H (70-110) mg/dL Microbiology - Last 24 Hours (Table) 09/06/24 14:17 Blood Culture - Preliminary Blood Assessment and Plan (1) Pressure injury of sacral region, stage 2 Current Visit: Yes Status: Acute Code(s): L89.152 - PRESSURE ULCER OF SACRAL REGION, STAGE 2 SNOMED Code(s): 62825346505442 (2) UTI (urinary tract infection) due to urinary indwelling catheter Current Visit: Yes Status: Acute Code(s): T83.511A - I/I REACT D/T INDWELLING URETHRAL CATHETER, INIT; N39.0 - URINARY TRACT INFECTION, SITE NOT SPECIFIED SNOMED Code(s): 047370750 (3) Allergy to multiple antibiotics Current Visit: No Status: Acute Code(s): Z88.1 - ALLERGY STATUS TO OTHER ANTIBIOTIC AGENTS SNOMED Code(s): 557151118 (4) Positive blood culture Current Visit: No Status: Acute Code(s): R78.81 - BACTEREMIA SNOMED Code(s): 553784549 Plan: 1patient presented to hospital with sepsis in this patient who did have a elevated white count tachycardia meeting currently for SIRS source likely catheter assisted UTI and significant amount of purulent urine was noticed at the time of change of his Stein catheter 2patient with multiple antibiotic ALLERGIES that would limit the number of ant ibiotic safe to use 3patient with positive blood culture staph capitis likely skin contamination no need for vancomycin, blood culture has been repeated which are negative so far 4urine is growing procidencia for which the patient is being treated with ertapenem, 5- plan is for a 7-day course of Invanz on discharge once his PEG tube issues has been resolved Dictation was produced using [employer] dictation software. please excuse any grammatical, word or spelling errors. Time with Patient: Less than 30
--- NOTE | 2024-09-09 14:11 | P.PN ---
Subjective Progress Note Date: 09/09/24 Hospital Course: 64-year-old male with past medical history of debilitating MS, bedbound, chronic indwelling Stein catheter with history of recurrent catheter associated UTI, pneumonia, who was sent to the ER from [facility] due to mental status change and was found to have purulent urine, Stein catheter was exchanged and patient was admitted for further management sepsis secondary to catheter associated UTI, patient has history of multiple drug allergies, ID consulted, patient was started on Invanz, plan is for 7 days course on discharge with close ID follow- up, urine growing procidentia Subjective: Patient is nonverbal. Vitals Signs Revi Not obtain any history from the patient.ewed. General examination -acute distress Heart - + S1S2 no murmurs Lungs - Clear to auscultation Abdomen soft NT ND +ve BS Extremities -muscle wasting in all 4 extremities Psych - Calm Assessment and Plan: [Active:] Sepsis secondary to catheter associated UTI Bacteremia with cultures positive for Staphylococcus capitis, likely skin contaminant Acute hypoxic respiratory failure, unclear etiology -ID following -> patient is for 7 days of Invanz -Patient is afebrile -Patient will need a midline prior to discharge. Acute hypernatremia likely due to dehydration, resolved -Sodium this morning is 143 -Continue with water flushes through the PEG tube malFunctioning PEG tube: Patient had PEG tube placement with EGD today [Chronic:] Severe debilitating multiple sclerosis Chronic indwelling Stein catheter Seizure disorder:lactosmide solution not available to be placed via peg tube at this institution. continue iv lacmoside 150 mg bid. continue carbamazepine 100 mg tid PEG tube dependent, continue Jevity, currently at goal of 55 cc/h DVT ppx: Lovenox Anticipated discharge place: Back to [facility] Anticipated discharge time: tomorrow Objective - Vital Signs Vital signs: Vital Signs Temp 97.0 F L 09/09/24 13:06 Pulse 87 09/09/24 13:06 Resp 20 09/09/24 13:06 BP 129/86 09/09/24 13:06 Pulse Ox 97 09/09/24 13:06 FiO2 Intake & Output 09/08/24 09/09/24 09/09/24 18:59 06:59 18:59 Intake Total 50 Output Total 700 400 Balance -700 -400 50 Weight 91 kg 90.5 kg Intake: IV 50 Output: Urine 700 400 Other: Voiding Method Indwelling Catheter Indwelling Catheter # Bowel Movements 1 - Labs CBC & Chem 7: 09/09/24 06:28 09/09/24 06:28 Labs: Abnormal Lab Results - Last 24 Hours (Table) 09/08/24 09/09/24 09/09/24 Range/Units 16:35 06:28 06:28 MCHC 31.3 L (32.0-37.0) g/dL RDW 15.9 H 15.7 H (11.5-15.5) % MPV 12.4 H (9.5-12.2) FL Immature Gran # 0.06 H (0.00-0.04) X 10*3/uL Lymphocytes # 0.38 L (0.90-5.00) X 10*3/uL Monocytes # 0.12 L (0.20-1.00) X 10*3/uL Chloride 111 H (96-109) mmol/L BUN/Creatinine Ratio 24.67 H (12.00-20.00) Ratio Glucose 131 H (70-110) mg/dL POC Glucose (mg/dL) (70-110) mg/dL Calcium 8.2 L (8.7-10.3) mg/dL 09/09/24 09/09/24 Range/Units 06:33 11:13 MCHC (32.0-37.0) g/dL RDW (11.5-15.5) % MPV (9.5-12.2) FL Immature Gran # (0.00-0.04) X 10*3/uL Lymphocytes # (0.90-5.00) X 10*3/uL Monocytes # (0.20-1.00) X 10*3/uL Chloride (96-109) mmol/L BUN/Creatinine Ratio (12.00-20.00) Ratio Glucose (70-110) mg/dL POC Glucose (mg/dL) 111 H 145 H (70-110) mg/dL Calcium (8.7-10.3) mg/dL Microbiology - Last 24 Hours (Table) 09/06/24 14:17 Blood Culture - Preliminary Blood
[2024-09-09] MEDS: LACTATED RINGERS 1,000 ML IV SCH (14:40)
--- NOTE | 2024-09-09 16:27 | XR ---
EXAMINATION TYPE: XR chest 1V portable DATE OF EXAM: 09/09/2024 7:05 AM COMPARISON: None. CLINICAL INDICATION: Male, 64 years old with history of shortness of breath, TECHNIQUE: XR chest 1V portable view(s) obtained. FINDINGS: The heart size is normal. The pulmonary vasculature is normal. Mild infiltrates at the right base. There may be some elevation of the right diaphragm. Correlate for atelectasis IMPRESSION: 1. Mild right lower lobe infiltrate. Correlate for atelectasis. [facility], , 09/09/2024 4:24 PM
[2024-09-09 16:41] LABS: Glucose,Whole Blood 127 mg/dL (70-110)
--- NOTE | 2024-09-09 22:07 | P.PN ---
Subjective Patient is seen for follow-up for hyper melena natremia. Serum sodium was 141 yesterday and 143 today. No significant changes. Objective - Vital Signs Vital signs: Vital Signs Temp 98.5 F 09/09/24 19:56 Pulse 96 09/09/24 20:34 Resp 17 09/09/24 19:56 BP 112/74 09/09/24 19:56 Pulse Ox 97 09/09/24 20:19 FiO2 Intake & Output 09/09/24 09/09/24 09/10/24 06:59 18:59 06:59 Intake Total 50 Output Total 400 650 Balance -400 -600 Weight 90.5 kg Intake: IV 50 Output: Urine 400 650 Other: Voiding Method Indwelling Catheter - Exam Patient is awake. Comfortable. No acute distress. He is not able to communicate much. Examination of the heart S1 and S2 Examination of the lungs bilateral breath sounds are heard Abdomen is soft nontender Examination of lower extremities shows no significant edema. Contractures noted in extremities. - Labs CBC & Chem 7: 09/09/24 06:28 09/09/24 06:28 Labs: Abnormal Lab Results - Last 24 Hours (Table) 09/09/24 09/09/24 09/09/24 Range/Units 06:28 06:28 06:33 MCHC 31.3 L (32.0-37.0) g/dL RDW 15.7 H (11.5-14.5) % MPV 12.4 H (9.5-12.2) FL Immature Gran # 0.06 H (0.00-0.04) X 10*3/uL Lymphocytes # 0.38 L (0.90-5.00) X 10*3/uL Monocytes # 0.12 L (0.20-1.00) X 10*3/uL Chloride 111 H (96-109) mmol/L BUN/Creatinine Ratio 24.67 H (12.00-20.00) Ratio Glucose 131 H (70-110) mg/dL POC Glucose (mg/dL) 111 H (70-110) mg/dL Calcium 8.2 L (8.7-10.3) mg/dL 09/09/24 09/09/24 Range/Units 11:13 16:32 MCHC (32.0-37.0) g/dL RDW (11.5-14.5) % MPV (9.5-12.2) FL Immature Gran # (0.00-0.04) X 10*3/uL Lymphocytes # (0.90-5.00) X 10*3/uL Monocytes # (0.20-1.00) X 10*3/uL Chloride (96-109) mmol/L BUN/Creatinine Ratio (12.00-20.00) Ratio Glucose (70-110) mg/dL POC Glucose (mg/dL) 145 H 127 H (70-110) mg/dL Calcium (8.7-10.3) mg/dL Microbiology - Last 24 Hours (Table) 09/06/24 14:17 Blood Culture - Preliminary Blood Assessment and Plan Assessment: 1. Hypernatremia from lack of oral water intake. Sodium level 160 on admission and is 140 from yesterday. D5W discontinued and patient is maintained on free water with tube feeding 2. Acute kidney injury secondary to vasomotor nephropathy from hypovolemia. Creatinine 1.25 on admission -0.6 yesterday. 3. Acute hypoxic respiratory failure. On 3 L nasal cannula. 4. Paraplegia with chronic Stein catheter. 5. Gram-positive bacteremia on antibiotics. Blood cultures grew Staphylococcus capitis, repeat cultures are pending Plan: Repeat sodium in a.m. Increase free water with tube feeding Continue off of D5W
[2024-09-10 00:20] LABS: Glucose,Whole Blood 141 mg/dL (70-110)
[2024-09-10 06:26] LABS: Glucose,Whole Blood 119 mg/dL (70-110)
--- NOTE | 2024-09-10 10:42 | P.DS ---
Providers Date of admission: 09/04/24 06:50 Attending physician: Chanelle Queen MD Consults: 09/04/24 06:44 Consult Physician Urgent Consulting Provider: Sonal Farah Consult Reason/Comments: uti, hx esbl Do you want consulting provider notified?: Yes 09/04/24 06:49 Consult Physician Urgent Consulting Provider: Chiki Michele Consult Reason/Comments: acute hypernatremia Do you want consulting provider notified?: Yes 09/08/24 13:09 Consult Physician Routine Consulting Provider: Enrique Case Consult Reason/Comments: clogged peg tube Do you want consulting provider notified?: Already Contacted Primary care physician: DEANGELO NEUMANN MD Hospital Course: Discharge Diagnosis: Toxic metabolic encephalopathy secondary to sepsis and hypernatremia Sepsis secondary to catheter associated UTI Bacteremia with cultures positive for Staphylococcus capitis, likely skin contaminant Acute hypernatremia likely due to dehydration: Resolved Malfunctioning PEG tube status post replacement on 09/09/2024 Hospital Course: 64-year-old male with past medical history of debilitating MS, bedbound, chronic indwelling Stein catheter with history of recurrent catheter associated UTI, pneumonia, who was sent to the ER from half-way due to mental status change and was found to have purulent urine, Stein catheter was exchanged and patient was admitted for further management sepsis secondary to catheter associated UTI, patient has history of multiple drug allergies, ID consulted, patient was started on Invanz plan is for 7 days of Invanz upon discharge. Patient had a midline placed. Patient had a complicated hospital course due to malfunctioning of his PEG tube. On 09/09/2024 general surgery replaced the PEG tube. At the time of discharge patient's PEG tube was functioning well per nurse. When patient came in on admission his sodium was 160. Nephrology was following the patient. Patient was initially started on D5W drip. This was then discontinued and patient was started on free water flushes. At the time of discharge patient was getting free water flushes 100 cc every 4 hours. His sodium was stable at the time of discharge. Patient seen and examined at bedside.[] Vital signs reviewed and stable. General examination -acute distress Heart - + S1S2 no murmurs Lungs - Clear to auscultation Abdomen soft NT ND +ve BS Extremities -muscle wasting in all 4 extremities Psych - Calm A total of [33 minutes of time were spent preparing this complex discharge summary . Patient discharged on [09/10/2024] Patient Condition at Discharge: Poor Plan - Discharge Summary Discharge Rx Participant: Yes New Discharge Prescriptions: New Ertapenem [INVanz] 1 gm IVPB DAILY@1600 #7 each Continue Aspirin 81 mg PEG/G-TUBE DAILY Acetaminophen Tab [Tylenol] 650 mg PEG/G-TUBE Q4H PRN PRN Reason: Fever And/ Or Pain carBAMazepine [carBAMazepine Oral Susp] 100 mg PEG/G-TUBE TID Scopolamine [Scopolamine 1 MG/72 HR patch] 1 patch TRANSDERM Q72H Lactulose 20 gm PEG/G-TUBE TID polyethylene glycoL 3350 [Miralax] 17 gm PEG/G-TUBE HS Lacosamide [Vimpat Oral Soln] 150 mg PEG/G-TUBE BID Ipratropium-Albuterol Nebulize [Duoneb 0.5 mg-3 mg/3 ml Soln] 3 ml INHALATION RT-TID Cranberry 450mg 1 tab PEG/G-TUBE DAILY Prostat 30 ml PEG/G-TUBE DAILY Baclofen 5 mg PEG/G-TUBE TID bisacodyL [Dulcolax] 10 mg RECTAL DAILY PRN PRN Reason: Constipation Metoprolol Tartrate [Lopressor] 50 mg PEG/G-TUBE BID oxyBUTYnin chloride 5 mg PEG/G-TUBE TID Atorvastatin [Lipitor] 40 mg PEG/G-TUBE HS Famotidine [Pepcid] 20 mg PEG/G-TUBE DAILY amantadine HCL [Amantadine] 100 mg PEG/G-TUBE DAILY Discontinued lisinopriL [Zestril] 2.5 mg PEG/G-TUBE DAILY Discharge Medication List Aspirin 81 mg PEG/G-TUBE DAILY 11/27/20 [History] Acetaminophen Tab [Tylenol] 650 mg PEG/G-TUBE Q4H PRN 06/13/21 [History] Metoprolol Tartrate [Lopressor] 50 mg PEG/G-TUBE BID 06/13/21 [History] carBAMazepine [carBAMazepine Oral Susp] 100 mg PEG/G-TUBE TID 07/02/21 [History] Lactulose 20 gm PEG/G-TUBE TID 01/03/22 [History] Scopolamine [Scopolamine 1 MG/72 HR patch] 1 patch TRANSDERM Q72H 01/03/22 [History] oxyBUTYnin chloride 5 mg PEG/G-TUBE TID 12/19/22 [History] Atorvastatin [Lipitor] 40 mg PEG/G-TUBE HS 07/14/23 [History] Famotidine [Pepcid] 20 mg PEG/G-TUBE DAILY 07/14/23 [History] polyethylene glycoL 3350 [Miralax] 17 gm PEG/G-TUBE HS 10/17/23 [History] Ipratropium-Albuterol Nebulize [Duoneb 0.5 mg-3 mg/3 ml Soln] 3 ml INHALATION RT-TID 11/18/23 [History] Lacosamide [Vimpat Oral Soln] 150 mg PEG/G-TUBE BID 11/18/23 [History] Baclofen 5 mg PEG/G-TUBE TID 07/25/24 [History] Cranberry 450mg 1 tab PEG/G-TUBE DAILY 07/25/24 [History] Prostat 30 ml PEG/G-TUBE DAILY 07/25/24 [History] amantadine HCL [Amantadine] 100 mg PEG/G-TUBE DAILY 07/25/24 [History] bisacodyL [Dulcolax] 10 mg RECTAL DAILY PRN 07/25/24 [History] Ertapenem [INVanz] 1 gm IVPB DAILY@1600 #7 each 09/10/24 [Rx] Follow up Appointment(s)/Referral(s): DEANGELO NEUMANN MD [Primary Care Provider] - 1-2 days Discharge Disposition: TRANSFER TO SNF/ECF Plan of Treatment: PLEASE DO FREE WATER FLUSHES 100ml every 4 hrs.
[2024-09-10 11:15] LABS: Glucose,Whole Blood 113 mg/dL (70-110)
--- NOTE | 2024-09-10 11:44 | P.PN ---
Subjective Progress Note Date: 09/10/24 SURGICAL PROGRESS NOTE CHIEF COMPLAINT: PEG tube malfunction HISTORY OF PRESENT ILLNESS: Patient is status post EGD with PEG tube placement. Patient is tolerating tube feeds. He is scheduled for discharge to [facility] today. PHYSICAL EXAM: VITAL SIGNS: Reviewed. GENERAL: Well-developed in no acute distress. ABDOMEN: Soft. Nondistended. Nontender. PEG tube site clean dry and intact NEUROLOGIC: Nonverbal ASSESSMENT: 1. Malfunctioning PEG tube status post replacement PLAN: -Patient is tolerating tube feeds -Patient can be discharged from surgical standpoint Physician Brush Filler Hand note has been reviewed by physician. Signing provider agrees with the documented findings, assessment, and plan of care. Objective - Vital Signs Vital signs: Vital Signs Temp 98.1 F 09/10/24 07:07 Pulse 84 09/10/24 08:54 Resp 22 09/10/24 09:09 BP 124/83 09/10/24 07:07 Pulse Ox 94 L 09/10/24 08:45 FiO2 Intake & Output 09/09/24 09/10/24 09/10/24 18:59 06:59 18:59 Intake Total 50 Output Total 650 Balance -600 Weight 90.5 kg Intake: IV 50 Output: Urine 650 Other: Voiding Method Indwelling Catheter # Voids 0 - Labs CBC & Chem 7: 09/09/24 06:28 09/10/24 07:42 Labs: Abnormal Lab Results - Last 24 Hours (Table) 09/09/24 09/10/24 09/10/24 Range/Units 16:32 00:18 06:24 POC Glucose (mg/dL) 127 H 141 H 119 H (70-110) mg/dL 09/10/24 Range/Units 11:14 POC Glucose (mg/dL) 113 H (70-110) mg/dL Microbiology - Last 24 Hours (Table) 09/06/24 14:17 Blood Culture - Preliminary Blood
--- NOTE | 2024-09-10 12:17 | P.PN ---
Subjective Progress Note Date: 09/10/24 Principal diagnosis: Reason for follow-up is catheter assisted UTI and positive blood culture Patient is a 64-year-old male with a past medical history significant for MS in this patient who is in a bedbound state did have a chronic indwelling Stein catheter for urinary retention and history of recurrent catheter assisted UTI as well as pneumonia patient has been sent to the ER from the local [facility] for evaluation of mental status changes, patient noted to have significant purulent urine at the time of his Stein catheter changed by the nursing staff in the ER concerning for catheter assisted UTI. On today's evaluation that is 09/10/2024,the patient continues to be afebrile the patient is currently breathing comfortably on 3 L nasal cannula oxygen patient is slightly more awake and in no distress but not able to provide any history no vomiting or diarrhea has been reported. No new lab has been obtained today Objective - Vital Signs Vital signs: Vital Signs Temp 98.1 F 09/10/24 07:07 Pulse 84 09/10/24 08:54 Resp 22 09/10/24 09:09 BP 124/83 09/10/24 07:07 Pulse Ox 94 L 09/10/24 08:45 FiO2 Intake & Output 09/09/24 09/10/24 09/10/24 18:59 06:59 18:59 Intake Total 50 Output Total 650 Balance -600 Weight 90.5 kg Intake: IV 50 Output: Urine 650 Other: Voiding Method Indwelling Catheter # Voids 0 - Exam GENERAL DESCRIPTION: An elderly male lying in bed in no distress RESPIRATORY SYSTEM: Unlabored breathing , decreased breath sounds at bases HEART: S1 S2 regular rate and rhythm , ABDOMEN: Soft , no tenderness EXTREMITIES: No edema feet - Labs CBC & Chem 7: 09/09/24 06:28 09/10/24 07:42 Labs: Abnormal Lab Results - Last 24 Hours (Table) 09/09/24 09/09/24 09/09/24 Range/Units 06:28 11:13 16:32 Chloride 111 H (96-109) mmol/L BUN/Creatinine Ratio 24.67 H (12.00-20.00) Ratio Glucose 131 H (70-110) mg/dL POC Glucose (mg/dL) 145 H 127 H (70-110) mg/dL Calcium 8.2 L (8.7-10.3) mg/dL 09/10/24 09/10/24 Range/Units 00:18 06:24 Chloride (96-109) mmol/L BUN/Creatinine Ratio (12.00-20.00) Ratio Glucose (70-110) mg/dL POC Glucose (mg/dL) 141 H 119 H (70-110) mg/dL Calcium (8.7-10.3) mg/dL Microbiology - Last 24 Hours (Table) 09/06/24 14:17 Blood Culture - Preliminary Blood Assessment and Plan (1) Pressure injury of sacral region, stage 2 Current Visit: Yes Status: Acute Code(s): L89.152 - PRESSURE ULCER OF SACRAL REGION, STAGE 2 SNOMED Code(s): 12279076172011 (2) UTI (urinary tract infection) due to urinary indwelling catheter Current Visit: Yes Status: Acute Code(s): T83.511A - I/I REACT D/T INDWELLING URETHRAL CATHETER, INIT; N39.0 - URINARY TRACT INFECTION, SITE NOT SPECIFIED SNOMED Code(s): 501178149 (3) Allergy to multiple antibiotics Current Visit: No Status: Acute Code(s): Z88.1 - ALLERGY STATUS TO OTHER ANTIBIOTIC AGENTS SNOMED Code(s): 642087063 (4) Positive blood culture Current Visit: No Status: Acute Code(s): R78.81 - BACTEREMIA SNOMED Cod e(s): 432952310 Plan: 1patient presented to hospital with sepsis in this patient who did have a elevated white count tachycardia meeting currently for SIRS source likely catheter assisted UTI and significant amount of purulent urine was noticed at the time of change of his Stein catheter 2patient with multiple antibiotic ALLERGIES that would limit the number of antibiotic safe to use 3patient with positive blood culture staph capitis likely skin contamination no need for vancomycin, blood culture has been repeated which are negative so far 4urine urine culture have been finalized with procannelcia for which the patient is being treated with ertapenem, and will continue for 7 days on discharge to finish his course of therapy Dictation was produced using [employer] dictation software. please excuse any grammatical, word or spelling errors.
[2024-09-10 13:11] VITALS: BP 114/69; PULSE 81; RESP 19; TEMP 97.9
--- NOTE | 2024-09-10 13:36 | P.PN ---
Subjective Patient is seen for follow-up for hypernatremia. Serum sodium 143 today. Free water with tube feeding was increased yesterday to 100 mL every 4 hours. No significant changes. Objective - Vital Signs Vital signs: Vital Signs Temp 97.9 F 09/10/24 13:11 Pulse 81 09/10/24 13:11 Resp 19 09/10/24 13:11 BP 114/69 09/10/24 13:11 Pulse Ox 94 L 09/10/24 13:11 FiO2 Intake & Output 09/09/24 09/10/24 09/10/24 18:59 06:59 18:59 Intake Total 50 Output Total 650 Balance -600 Weight 90.5 kg Intake: IV 50 Output: Urine 650 Other: Voiding Method Indwelling Catheter # Voids 0 - Exam Patient is awake. Comfortable. No acute distress. He is not able to communicate much. Examination of the heart S1 and S2 Examination of the lungs bilateral breath sounds are heard Abdomen is soft nontender Examination of lower extremities shows no significant edema. Contractures noted in extremities. - Labs CBC & Chem 7: 09/09/24 06:28 09/10/24 07:42 Labs: Abnormal Lab Results - Last 24 Hours (Table) 09/09/24 09/10/24 09/10/24 Range/Units 16:32 00:18 06:24 POC Glucose (mg/dL) 127 H 141 H 119 H (70-110) mg/dL 09/10/24 Range/Units 11:14 POC Glucose (mg/dL) 113 H (70-110) mg/dL Microbiology - Last 24 Hours (Table) 09/06/24 14:17 Blood Culture - Preliminary Blood Assessment and Plan Assessment: 1. Hypernatremia from lack of oral water intake. Sodium level 160 on admission and is staying at 143. D5W discontinued and patient is maintained on free water with tube feeding, increased to 100 mL every 4 hours 2. Acute kidney injury secondary to vasomotor nephropathy from hypovolemia. Creatinine 1.25 on admission -0.6 yesterday. 3. Acute hypoxic respiratory failure. On 3 L nasal cannula. 4. Paraplegia with chronic Stein catheter. 5. Gram-positive bacteremia on antibiotics. Blood cultures grew Staphylococcus capitis, repeat cultures are so far negative Plan: continue with free water with tube feeding Monitors serum sodium periodically.
== END 2024-09-10 19:20 | DRG 698 ==
LOC: EC 04:26 → EEVIPCON 06:50 → 3SCARD 06:50 → 4SSUR 09-07 16:12
PROVIDERS: ADMIT Internal Medicine; ATTEND Internal Medicine
PROC: 05H933Z Insertion of Infusion Device into Right Brachial Vein, Percutaneous Approach (ICD-10-PCS; 2024-09-08)
PROC: 3E0G76Z Introduction of Nutritional Substance into Upper GI, Via Natural or Artificial Opening (ICD-10-PCS; 2024-09-09)
PROC: 0D20XUZ Change Feeding Device in Upper Intestinal Tract, External Approach (ICD-10-PCS; principal; 2024-09-09 07:30)
DX: T83.518A Infection and inflammatory reaction due to other urinary catheter, initial encounter (principal); A41.1 Sepsis due to other specified staphylococcus; G93.41 Metabolic encephalopathy; J96.01 Acute respiratory failure with hypoxia; N17.0 Acute kidney failure with tubular necrosis; R53.2 Functional quadriplegia; G92.8 Other toxic encephalopathy; R65.20 Severe sepsis without septic shock; E87.0 Hyperosmolality and hypernatremia; K94.23 Gastrostomy malfunction; E87.1 Hypo-osmolality and hyponatremia; N30.90 Cystitis, unspecified without hematuria; E86.1 Hypovolemia; Z11.52 Encounter for screening for COVID-19; L89.152 Pressure ulcer of sacral region, stage 2; R41.89 Other symptoms and signs involving cognitive functions and awareness; G40.909 Epilepsy, unspecified, not intractable, without status epilepticus; G35 Multiple sclerosis; Z88.1 Allergy status to other antibiotic agents; E86.0 Dehydration; Y84.6 Urinary catheterization as the cause of abnormal reaction of the patient, or of later complication, without mention of misadventure at the time of the procedure; F32.A Depression, unspecified; I10 Essential (primary) hypertension; N31.9 Neuromuscular dysfunction of bladder, unspecified; Z74.01 Bed confinement status; Z79.82 Long term (current) use of aspirin; Z79.899 Other long term (current) drug therapy; Z82.49 Family history of ischemic heart disease and other diseases of the circulatory system; Z86.19 Personal history of other infectious and parasitic diseases; Z86.718 Personal history of other venous thrombosis and embolism; Z87.440 Personal history of urinary (tract) infections; Z88.8 Allergy status to other drugs, medicaments and biological substances; Z87.01 Personal history of pneumonia (recurrent)
CPT/HCPCS: 36410; 36415; 43235; 51702; 71045; 76937; 80048; 80053; 80156; 81001; 83605; 83735; 83880; 84145; 84295; 84484; 85025; 85610; 85652; 85730; 86140; 87040; 87077; 87086; 87186; 87636; 93005; 94640; 94760; 96361; 96365; 96366; 96367; 96372; 96375; 96376; 99285

== ENCOUNTER 2024-10-23 17:28 | Inpatient (IN) | payer MEDICARE, OTHER ==
--- NOTE | 2024-10-23 17:56 | ED ---
General Adult HPI - General Chief complaint: Altered Mental Status Stated complaint: AMS Time Seen by Provider: 10/23/24 17:30 Source: patient, EMS, RN notes reviewed Mode of arrival: EMS Limitations: altered mental status, physical limitation - History of Present Illness Initial comments: Patient is a 64-year-old male presenting to the emergency department with concern for fever. Patient has multiple sclerosis and functional quadriplegia. Patient is nonverbal at this time and provides no history. Patient is reportedly somewhat more lethargic than normal and had a fever earlier. Unclear if patient received Tylenol or not. Patient unable to express any complaints - Related Data Home Medications Medication Instructions Recorded Confirmed Aspirin 81 mg PEG/G-TUBE DAILY 11/27/20 10/23/24 Acetaminophen Tab [Tylenol] 650 mg PEG/G-TUBE Q4H PRN 06/13/21 10/23/24 Metoprolol Tartrate [Lopressor] 50 mg PEG/G-TUBE BID 06/13/21 10/23/24 carBAMazepine [carBAMazepine Oral 100 mg PEG/G-TUBE TID 07/02/21 10/23/24 Susp] Lactulose 20 gm PEG/G-TUBE TID 01/03/22 10/23/24 Scopolamine [Scopolamine 1 MG/72 1 patch TRANSDERM Q72H 01/03/22 10/23/24 HR patch] oxyBUTYnin chloride 5 mg PEG/G-TUBE DAILY 12/19/22 10/23/24 Famotidine [Pepcid] 20 mg PEG/G-TUBE DAILY 07/14/23 10/23/24 Ipratropium-Albuterol Nebulize 3 ml INHALATION RT-TID 11/18/23 10/23/24 [Duoneb 0.5 mg-3 mg/3 ml Soln] Lacosamide [Vimpat Oral Soln] 150 mg PEG/G-TUBE BID 11/18/23 10/23/24 Baclofen 5 mg PEG/G-TUBE TID 07/25/24 10/23/24 Cranberry 450mg 450 mg PEG/G-TUBE DAILY 07/25/24 10/23/24 amantadine HCL [Amantadine] 100 mg PEG/G-TUBE DAILY 07/25/24 10/23/24 bisacodyL [Dulcolax] 10 mg RECTAL DAILY PRN 07/25/24 10/23/24 Amino Acids/Protein Hydrolys 30 ml PEG/G-TUBE BID 10/23/24 10/23/24 [Pro-Stat Awc Liquid] Allergies Allergy/AdvReac Type Severity Reaction Status Date / Time meropenem [From Merrem] Allergy Rash/Hives Verified 10/23/24 17:40 ceftolozane [From Zerbaxa] AdvReac Rapid Verified 10/23/24 17:40 Heart Rate tazobactam [From Zerbaxa] AdvReac Rapid Verified 10/23/24 17:40 Heart Rate Review of Systems ROS Statement: Those systems with pertinent positive or pertinent negative responses have been documented in the HPI. ROS Other: All systems not noted in ROS Statement are negative. Limitations: ROS unobtainable due to patients medical condition Constitutional: Reports: as per HPI, fever Past Medical History Past Medical History: Deep Vein Thrombosis (DVT), GERD/Reflux, Hypertension, Musculoskeletal Disorder, Neurologic Disorder, Pneumonia, Seizure Disorder, Skin Disorder Additional Past Medical History / Comment(s): Pt diagnosed with MS at the age of 39 yrs, seizure/pneumonia/UTI with sepsis/respirtory failure/vented, cognitive impairment, sister states when he is feeling well he could speak a few words/nod head appropriately/give thumbs up/roll eyes but when ill is nonverbal, pt has dysphagia/NPO with peg tube, contractures, last seizure 07/2020, trigeminal neuralgia, dysarthria/anarthria/neurogenic bladder with IDC-UTIs/sepsis, multiple pneumonias, recent seizure-last one 07/03/20, incontinent of stool, pt has had decubitus ulcer coccyx-sister unsure of skin condition at this time, past anemia r/t heparin/epistaxiis which involved nasal packing/transfusions, DVT bilateral arms, hypoxia, oxygen at 2L/NC, L femoral head fracture History of Any Multi-Drug Resistant Organisms: ESBL, MRSA, Other MDRO Date of last positivie culture/infection: 03/09/21-MRSA; 11/23/19 ESBL-E.coli MDRO Source:: Abdomen-Peg site MRSA; Urine -ESBL Past Surgical History: Tonsillectomy Additional Past Surgical History / Comment(s): Gastrostomy, peg tube, I&D coccyx decubitius, bronchoscopy, bilateral lasik eye surgery. Past Anesthesia/Blood Transfusion Reactions: No Reported Reaction Additional Past Anesthesia/Blood Transfusion Reaction / Comment(s): Pt has received blood in past without reaction. Past Psychological History: Depression Smoking Status: Never smoker Past Alcohol Use History: None Reported Past Drug Use History: None Reported - Past Family History Father Family Medical History: Myocardial Infarction (ME) Mother Family Medical History: Hypertension, Myocardial Infarction (ME) Additional Family Medical History / Comment(s): Mother of a ME at the age of 73 yrs. General Exam Limitations: altered mental status, physical limitation General appearance: alert Head exam: Present: atraumatic Eye exam: Present: normal appearance, PERRL ENT exam: Present: mucous membranes dry Neck exam: Present: normal inspection Respiratory exam: Present: rales (Right base) Cardiovascular Exam: Present: regular rate, normal rhythm GI/Abdominal exam: Present: soft. Absent: tenderness Extremities exam: Present: other (Patient does have some mild contractures of extremities) Neurological exam: Present: alert, altered Psychiatric exam: Present: flat affect Skin exam: Present: normal color Course Vital Signs 10/23/24 10/23/24 10/23/24 17:34 18:00 19:20 Temperature 98.8 F Pulse Rate 59 L 88 101 H Respiratory 16 18 16 Rate Blood Pressure 123/77 149/82 O2 Sat by Pulse 92 L 97 98 Oximetry EKG Findings - EKG Results: EKG: interpreted by ERMD (Left axis. Frequent PVCs. Inferior T wave inversion. T wave inversion lead V3 through V6.), sinus rhythm EKG shows: tachycardia Medical Decision Making - Medical Decision Making MDM was pt. sent in by a medical professional or institution (, PA, SENIOR QUALITY METHODS SPECIALIST, [facility], hospital, or fpc...) When possible be specific @ -Patient was sent from nursing facility Did you speak to anyone other than the patient for history (EMS, parent, family, police, friend...)? What history was obtained from this source @ -No Did you review nursing and triage notes (agree or disagree)? Why? @ -I reviewed and agree with nursing and triage notes Were old charts reviewed (outside hosp., previous admission, EMS record, old EKG, old radiological studies, urgent care reports/EKG's, fpc records)? Report findings @ -No old charts were reviewed Differential Diagnosis (chest pain, altered mental status, abdominal pain women, abdominal pain men, vaginal bleeding, weakness, fever, dyspnea, syncope, headache, dizziness, GI bleed, back pain, seizure, CVA, palpatations, mental health, musculoskeletal)? @ -Differential Fever: Pneumonia, viral URI, endocarditis, myocarditis, pericarditis, otitis, sinusitis, peritonsillar Abscess, retropharyngeal Abscess, epiglottitis, peritonitis, appendicitis, Maris cystitis, diverticulitis, hepatitis, colitis, UTI, PID, TOA, pyelonephritis, prostatitis, epididymitis, meningitis, encephalitis, pulmonary embolism, CVA, thyroid storm, pancreatitis, adrenal crisis, cavernous sinus thrombosis, this is not meant to be an all-inclusive list. EKG interpreted by me (3pts min.). @ -As above X-rays interpreted by me (1pt min.). @ -Chest x-ray with right lower lobe infiltrate versus atelectasis CT interpreted by me (1pt min.). @ -None done U/S interpreted by me (1pt. min.). @ -None done What testing was considered but not performed or refused? (CT, X-rays, U/S, labs)? Why? @ -None What meds were considered but not given or refused? Why? @ -None Did you discuss the management of the patient with other professionals (professionals i.e. , PA, SENIOR QUALITY METHODS SPECIALIST, lab, RT, psych nurse, older adult social work specialist, waterworks pump station operator, teacher, surveillance sensor officer, showcase maker)? Give summary @ -Case was discussed with Dr. Anglea who will admit covering hospital call Was smoking cessation discussed for >3mins.? @ -No Was critical care preformed (if so, how long)? @ -31 minutes critical care time Were there social determinants of health that impacted care today? How? (Homelessness, low income, unemployed, alcoholism, drug addiction, transportat ion, low edu. Level, literacy, decrease access to med. care, group home, rehab)? @ -No Was there de-escalation of care discussed even if they declined (Discuss DNR or withdrawal of care, Hospice)? DNR status @ -No What co-morbidities impacted this encounter? (DM, HTN, Smoking, COPD, CAD, Cancer, CVA, ARF, Chemo, Hep., AIDS, mental health diagnosis, sleep apnea, morbid obesity)? @ -None Was patient admitted / discharged? Hospital course, mention meds given and route, prescriptions, significant lab abnormalities, going to OR and other pertinent info. @ -Patient presents with fever, rales right lower lobe, elevated white blood cell count and infiltrate right lower lobe on x-ray. Patient will be admitted for pneumonia. Blood culture, lactic acid, and IV antibiotics will be ordered. Undiagnosed new problem with uncertain prognosis? @ -No Drug Therapy requiring intensive monitoring for toxicity (Heparin, Nitro, Insulin, Cardizem)? @ -No Were any procedures done? @ -No Diagnosis/symptom? @ -Pneumonia Acute, or Chronic, or Acute on Chronic? @ -Acute Uncomplicated (without systemic symptoms) or Complicated (systemic symptoms)? @ -Default Side effects of treatment? @ -No Exacerbation, Progression, or Severe Exacerbation? @ -No Poses a threat to life or bodily function? How? (Chest pain, USA, ME, pneumonia, PE, COPD, DKA, ARF, appy, cholecystitis, CVA, Diverticulitis, Homicidal, S uicidal, threat to staff... and all critical care pts) @ -Threat to pulmonary function There is concern for sepsis diagnosed at 2039 PM. - Lab Data Result diagrams: 10/23/24 18:09 10/23/24 18:09 Lab Results 10/23/24 10/23/24 10/23/24 Range/Units 18:09 18:09 18:09 WBC 16.3 H (3.8-10.6) k/uL RBC 5.67 (4.30-5.90) m/uL Hgb 16.4 (13.0-17.5) gm/dL Hct 51.9 (39.0-53.0) % MCV 91.5 (80.0-100.0) fL MCH 28.9 (25.0-35.0) pg MCHC 31.6 (31.0-37.0) g/dL RDW 15.5 (11.5-15.5) % Plt Count 261 (150-450) k/uL MPV 8.4 Neutrophils % 84 % Lymphocytes % 7 % Monocytes % 5 % Eosinophils % 2 % Basophils % 0 % Neutrophils # 13.7 H (1.3-7.7) k/uL Lymphocytes # 1.2 (1.0-4.8) k/uL Monocytes # 0.9 (0-1.0) k/uL Eosinophils # 0.2 (0-0.7) k/uL Basophils # 0.0 (0-0.2) k/uL Hypochromasia Slight PT 11.8 (10.0-12.5) sec INR 1.1 (<1.2) APTT 23.0 (22.0-30.0) sec Sodium 153 H (137-145) mmol/L Potassium 3.8 (3.5-5.1) mmol/L Chloride 117 H (98-107) mmol/L Carbon Dioxide 23 (22-30) mmol/L Anion Gap 13 mmol/L BUN 31 H (9-20) mg/dL Creatinine 0.80 (0.66-1.25) mg/dL Est GFR (CKD-EPI)AfAm >90 (>60 ml/min/1.73 sqM) Est GFR (CKD-EPI)NonAf >90 (>60 ml/min/1.73 sqM) Glucose 109 H (74-99) mg/dL Plasma Lactic Acid Taurus (0.7-2.0) mmol/L Calcium 9.0 (8.4-10.2) mg/dL Total Bilirubin 0.7 (0.2-1.3) mg/dL AST 32 (17-59) U/L ALT 42 (4-49) U/L Alkaline Phosphatase 93 (38-126) U/L Troponin I (0.000-0.034) ng/mL Total Protein 6.8 (6.3-8.2) g/dL Albumin 3.6 (3.5-5.0) g/dL Urine Color Urine Appearance (Clear) Urine pH (5.0-8.0) Ur Specific [place] (1.001-1.035) Urine Protein (Negative) Urine Glucose (UA) (Negative) Urine Ketones (Negative) Urine Blood (Negative) Urine Nitrite (Negative) Urine Bilirubin (Negative) Urine Urobilinogen (<2.0) mg/dL Ur Leukocyte Esterase (Negative) Urine RBC (0-5) /hpf Urine WBC (0-5) /hpf Ur Squamous Epith Cells (0-4) /hpf Urine Bacteria (None) /hpf Urine Mucus (None) /hpf 10/23/24 10/23/24 10/23/24 Range/Units 18:09 18:09 18:25 WBC (3.8-10.6) k/uL RBC (4.30-5.90) m/uL Hgb (13.0-17.5) gm/dL Hct (39.0-53.0) % MCV (80.0-100.0) fL MCH (25.0-35.0) pg MCHC (31.0-37.0) g/dL RDW (11.5-15.5) % Plt Count (150-450) k/uL MPV Neutrophils % % Lymphocytes % % Monocytes % % Eosinophils % % Basophils % % Neutrophils # (1.3-7.7) k/uL Lymphocytes # (1.0-4.8) k/uL Monocytes # (0-1.0) k/uL Eosinophils # (0-0.7) k/uL Basophils # (0-0.2) k/uL Hypochromasia PT (10.0-12.5) sec INR (<1.2) APTT (22.0-30.0) sec Sodium (137-145) mmol/L Potassium (3.5-5.1) mmol/L Chloride (98-107) mmol/L Carbon Dioxide (22-30) mmol/L Anion Gap mmol/L BUN (9-20) mg/dL Creatinine (0.66-1.25) mg/dL Est GFR (CKD-EPI)AfAm (>60 ml/min/1.73 sqM) Est GFR (CKD-EPI)NonAf (>60 ml/min/1.73 sqM) Glucose (74-99) mg/dL Plasma Lactic Acid Taurus 1.5 (0.7-2.0) mmol/L Calcium (8.4-10.2) mg/dL Total Bilirubin (0.2-1.3) mg/dL AST (17-59) U/L ALT (4-49) U/L Alkaline Phosphatase (38-126) U/L Troponin I 0.059 H* (0.000-0.034) ng/mL Total Protein (6.3-8.2) g/dL Albumin (3.5-5.0) g/dL Urine Color Yellow Urine Appearance Clear (Clear) Urine pH 6.5 (5.0-8.0) Ur Specific [place] 1.024 (1.001-1.035) Urine Protein 1+ H (Negative) Urine Glucose (UA) Negative (Negative) Urine Ketones Negative (Negative) Urine Blood Negative (Negative) Urine Nitrite Negative (Negative) Urine Bilirubin Negative (Negative) Urine Urobilinogen <2.0 (<2.0) mg/dL Ur Leukocyte Esterase Negative (Negative) Urine RBC 2 (0-5) /hpf Urine WBC 3 (0-5) /hpf Ur Squamous Epith Cells <1 (0-4) /hpf Urine Bacteria Rare H (None) /hpf Urine Mucus Rare H (None) /hpf Critical Care Time Critical Care Time: Yes Disposition Clinical Impression: Pneumonia, Sepsis Disposition: ADMITTED IP TO THIS [facility] Condition: Serious Is patient prescribed a controlled substance at d/c from ED?: No Referrals: DEANGELO NEUMANN MD [Primary Care Provider] - 1-2 days Time of Disposition: 20:42
[2024-10-23] MEDS: SODIUM CHLORIDE 0.9% 1,000 ML IV SCH (18:15)
[2024-10-23 18:23] LABS: Basophils % (A) 0 %; Eosinophils # (A) 0.2 k/uL (0-0.7); Eosinophils % (A) 2 %; HCT 51.9 % (39.0-53.0); HGB 16.4 gm/dL (13.0-17.5); Hypochromasia Slight; Lymphocytes # (A) 1.2 k/uL (1.0-4.8); Lymphocytes % (A) 7 %; MCH 28.9 pg (25.0-35.0); MCHC 31.6 g/dL (31.0-37.0); MCV 91.5 fL (80.0-100.0); Mean Platelet Volume 8.4; Monocytes # (A) 0.9 k/uL (0-1.0); Monocytes % (A) 5 %; Neutrophils # (A) 13.7 k/uL (1.3-7.7); Neutrophils % (A) 84 %; Platelet Count 261 k/uL (150-450); RBC 5.67 m/uL (4.30-5.90); RDW 15.5 % (11.5-15.5); WBC 16.3 k/uL (3.8-10.6)
[2024-10-23 18:43] LABS: ALT 42 U/L (4-49); AST 32 U/L (17-59); African American GFR (CKD) >90 (>60 ml/min/1.73 sqM); Albumin 3.6 g/dL (3.5-5.0); Alkaline Phosphatase 93 U/L (38-126); Anion Gap 13 mmol/L; Blood Urea Nitrogen 31 mg/dL (9-20); Carbon Dioxide 23 mmol/L (22-30); Chloride 117 mmol/L (98-107); Glucose 109 mg/dL (74-99); Non-African American GFR(CKD) >90 (>60 ml/min/1.73 sqM); Potassium 3.8 mmol/L (3.5-5.1); Sodium 153 mmol/L (137-145); Total Bilirubin 0.7 mg/dL (0.2-1.3); Total Protein 6.8 g/dL (6.3-8.2)
[2024-10-23 18:49] LABS: INR 1.1 (<1.2); Prothrombin Time 11.8 sec (10.0-12.5)
[2024-10-23 18:52] LABS: Appearance,Urine Clear (Clear); Bacteria,Urine Rare /hpf; Bilirubin,Urine Negative (Negative); Blood,Urine Negative (Negative); Color,Urine Yellow; Glucose,Urine (UA) Negative (Negative); Ketones,Urine Negative (Negative); Leukocyte Esterase,Urine Negative (Negative); Mucus,Urine Rare /hpf; Nitrite,Urine Negative (Negative); PH, Urine 6.5 (5.0-8.0); Protein,Urine 1+ (Negative); RBC,Urine 2 /hpf (0-5); Specific Gravity,Urine 1.024 (1.001-1.035); Squamous Epithelial Cell,Urine <1 /hpf (0-4); Urobilinogen,Urine <2.0 mg/dL (<2.0); WBC,Urine 3 /hpf (0-5)
--- NOTE | 2024-10-23 19:24 | XR ---
EXAMINATION TYPE: XR chest 1V portable DATE OF EXAM: 10/23/2024 7:04 PM COMPARISON: 09/09/2024 CLINICAL INDICATION: Male, 64 years old with history of Fever, TECHNIQUE: XR chest 1V portable view(s) obtained. FINDINGS: The heart size is normal. The pulmonary vasculature is normal. Mild infiltrates in the right lower lobe.. IMPRESSION: 1. Ankle correlation for atelectasis or pneumonia right lower lung field [facility], Workstation: [facility], 10/23/2024 7:22 PM
[2024-10-23] MEDS ORDERED: IPRATROPIUM-ALBUTEROL 3 ML NEB INHALATION PRN (20:43)
[2024-10-23] MEDS ORDERED: PNEUMONIA PROTOCOL UTILIZED 1 EACH MISC PO PRN (20:43)
[2024-10-23] MEDS ORDERED: NON FORMULARY DRUG (Amino Acids/Protein Hydrolys [Pro-Stat Awc Liquid] 887 ML Liquid) PEG/G-TUBE SCH (21:00)
[2024-10-23] MEDS: DEXTROSE 5% IN WATER 1,000 ML IV SCH (22:41)
[2024-10-23 22:50] LABS: Influenza A Not Detected (Not Detectd); Influenza B Not Detected (Not Detectd); RSV Not Detected (Not Detectd)
[2024-10-23] MEDS: BACLOFEN 10 MG TAB PEG/G-TUBE SCH (23:27)
[2024-10-23] MEDS: AZITHROMYCIN 500 MG in SODIUM CHLORIDE 0.9% 250 ML IVPB STA (23:27)
[2024-10-23] MEDS: SCOPOLAMINE 1 MG/72 HR PATCH TRANSDERM SCH (23:27)
[2024-10-23] MEDS: METOPROLOL TARTRATE 50 MG TAB PEG/G-TUBE SCH (23:27)
[2024-10-23] MEDS: LACTULOSE 20 GM/30 ML CUP PEG/G-TUBE SCH (23:28)
[2024-10-24] MEDS: LACOSAMIDE 10 MG/ML PEG/G-TUBE SCH (00:07)
[2024-10-24] MEDS ORDERED: VANCOMYCIN IV PER PHARMACY 1 EACH MISC MISCELLANE PRN (00:08)
--- NOTE | 2024-10-24 00:39 | P.HPIM ---
History of Present Illness H&P Date: 10/23/24 Patient is a 64-year-old male with a history of multiple sclerosis, functional quadriplegia, chronic Stein catheter placement, recurrent catheter associated UTI, seizure disorder, debility, bedbound, chronic unhealing ulcer, PEG tube dependent came in from medical [place] via EMS with concerns for altered mental status. Patient was noted to have high fever at the facility. Patient is nonverbal and is unable to provide any useful history. History acquired from EMS chart, EMR and RN. Patient was recently hospitalized for altered mental status secondary to urosepsis. Initial lab evaluation in the ED shows WBC 16.3, hemoglobin 16.4, MCV 91.5, sodium 153, potassium 3.8, chloride 117, bicarb 23, BUN 13, creatinine 0.80, glucose 109, troponin I 0.059. Vitals on arrival 98.8 F, pulse rate 101 respiratory rate 16, blood pressure 123/77, oxygen saturation 98% with 2 L nasal cannula Chest x-ray interpreted independently shows concerns for pneumonia in the right lower lung field EKG interpreted in ER apparently shows sinus tachycardia with frequent ventricular premature complexes in a bigeminal pattern. [place] interval 142 ms, QRS duration 100 ms, QTc 348 ms. Urinalysis shows mild proteinuria, negative nitrite, negative leukocyte esterase, normal WBC Viral serology negative for influenza type A and B, RSV and COVID-19 Review of systems: Unable to obtain ROS Refer to EMR chart for documentation of allergies, social history and family history. Physical examination: Vital signs: As described in HPI General: non toxic, no distress, appears older than stated age, overweight Derm: unhealed 2 cm stage II sacral ulcer with surrounding erythema with minimal purulent discharge Head: atraumatic, normocephalic, symmetric Eyes: EOMI, anicteric sclera, pupils equal round reactive to light Neck: No cervical lymphadenopathy, trachea midline, supple Mouth: no lip lesion, mucus membranes moist Cardiovascular: S1S2 reg, no murmur, positive dorsalis pedis pulse bilateral, no edema Lungs: CTA bilateral, no rhonchi, no rales, no accessory muscle use Abdominal: soft, nontender to palpation, no guarding, G-tube in place and site is clean and intact Ext: muscle strength 2-3 out of 5 in all 4 extremities grossly, no gross muscle atrophy, no contractures, Neuro: Unable to assess Psych: Patient is A&O x 0 Assessment/Plan: This is a Patient is a 64-year-old male with a history of multiple sclerosis, functional quadriplegia, chronic Stein catheter placement, recurrent catheter associated UTI, seizure disorder, debility, bedbound, chronic unhealing ulcer, PEG tube dependent came in from medical [place] via EMS with concerns for altered mental status likely secondary to pneumonia. Case was discussed with the Emergency Room provider and decision was made to admit the patient for altered mental status and community-acquired pneumonia #Acute toxic metabolic encephalopathy secondary to sepsis and acute hypernatremia #Sepsis secondary to community-acquired pneumonia #Acute hypoxemic respiratory failure secondary to above Meet sepsis criteria with source of infection is pneumonia WBC 16.3, heart rate 101 Chest x-ray shows opacity in the right lower lung field c/w IV D5W at 150 cc/h Order sputum culture Order blood culture x 2 sets Order procalcitonin Order urine Legionella antigen test Risk factors for Pseudomonas and MRSA based on previous cultures, recent hospitalization and stay in long-term care facility Discontinue Zithromax and Rocephin Order cefepime 2 g every 8 hour, levofloxacin 750 mg IV daily and vancomycin dosing per pharmacy for antipseudomonal and MRSA coverage Monitor urine output Monitor I's and O's Patient currently on 2 L nasal cannula saturating at 96% Continue DuoNebs scheduled and [id number] Continue monitor vital signs CBC in a.m. #Hypernatremia secondary to dehydration in the setting of poor oral intake Na on admission 153mEq/L Free water deficit of appx 4 L Increase IV D5W to 100 cc/h Monitor sodium every 4 hour with goal of no more than 2 meq per 4 hours drop in Na correct Na by appr 10mEq/L in 24hr period to reach target ~140mEq/L BMP in a.m. start free water flushes through PEG 100 cc per 4 hrs #Stage II chronic nonhealing decubitus ulcer Consult wound care #Type II MO secondary to sepsis Troponin 0.059 --> 0.062 Unlikely to be ACS Continue cardiac telemetry #Hyperglycemia Serum glucose 109 Accu-Cheks and sliding scale insulin Check HbA1c Chronic conditions: Multiple sclerosis Debility: Consult PT and OT Status post PEG tube placement: Consult dietitian for for nutrition support Status post chronic indwelling catheter Home medication reconciled DVT prophylaxis: Lovenox 40 mg subcu daily GI prophylaxis: Pepcid through G-tube F: D5 W at 50 cc/h IV E: Replete that needed N: PEG tube dependent feeding; consulted dietitian for nutrition support A: Debility The patient is admitted with an anticipated more than 2 midnight stay for evaluation of acute toxic metabolic encephalopathy secondary to pneumonia sepsis CODE STATUS: unknown and unable to obtain at this time POA is Dot Marvin Anticipated discharge place: Pending clinical course Dictation was produced using [employer] dictation software. Please excuse any grammatical, word or spelling errors. I have seen and evaluated the patient today. I Discussed the case with the resident and agree with the resident's findings I edited the assessment and plan as necessary as documented in the resident's note. Past Medical History Past Medical History: Deep Vein Thrombosis (DVT), GERD/Reflux, Hypertension, Musculoskeletal Disorder, Neurologic Disorder, Pneumonia, Seizure Disorder, Skin Disorder History of Any Multi-Drug Resistant Organisms: ESBL, MRSA, Other MDRO Date of last positivie culture/infection: 03/09/21-MRSA; 11/23/19 ESBL-E.coli MDRO Source:: Abdomen-Peg site MRSA; Urine -ESBL Past Surgical History: Tonsillectomy Additional Past Surgical History / Comment(s): Gastrostomy, peg tube, I&D coccyx decubitius, bronchoscopy, bilateral lasik eye surgery. Past Anesthesia/Blood Transfusion Reactions: No Reported Reaction Additional Past Anesthesia/Blood Transfusion Reaction / Comment(s): Pt has received blood in past without reaction. Past Psychological History: Depression Smoking Status: Never smoker Past Alcohol Use History: None Reported Past Drug Use History: None Reported - Past Family History Father Family Medical History: Myocardial Infarction (MO) Mother Family Medical History: Hypertension, Myocardial Infarction (MO) Additional Family Medical History / Comment(s): Mother of a MO at the age of 73 yrs. Medications and Allergies Home Medications Medication Instructions Recorded Confirmed Type Aspirin 81 mg PEG/G-TUBE DAILY 11/27/20 10/23/24 History Acetaminophen Tab [Tylenol] 650 mg PEG/G-TUBE Q4H PRN 06/13/21 10/23/24 History Metoprolol Tartrate [Lopressor] 50 mg PEG/G-TUBE BID 06/13/21 10/23/24 History carBAMazepine [carBAMazepine Oral 100 mg PEG/G-TUBE TID 07/02/21 10/23/24 History Susp] Lactulose 20 gm PEG/G-TUBE TID 01/03/22 10/23/24 History Scopolamine [Scopolamine 1 MG/72 1 patch TRANSDERM Q72H 01/03/22 10/23/24 History HR patch] oxyBUTYnin chloride 5 mg PEG/G-TUBE DAILY 12/19/22 10/23/24 History Famotidine [Pepcid] 20 mg PEG/G-TUBE DAILY 07/14/23 10/23/24 History Ipratropium-Albuterol Nebulize 3 ml INHALATION RT-TID 11/18/23 10/23/24 History [Duoneb 0.5 mg-3 mg/3 ml Soln] Lacosamide [Vimpat Oral Soln] 150 mg PEG/G-TUBE BID 11/18/23 10/23/24 History Baclofen 5 mg PEG/G-TUBE TID 07/25/24 10/23/24 History Cranberry 450mg 450 mg PEG/G-TUBE DAILY 07/25/24 10/23/24 History amantadine HCL [Amantadine] 100 mg PEG/G-TUBE DAILY 07/25/24 10/23/24 History bisacodyL [Dulcolax] 10 mg RECTAL DAILY PRN 07/25/24 10/23/24 History Amino Acids/Protein Hydrolys 30 ml PEG/G-TUBE BID 10/23/24 10/23/24 History [Pro-Stat Awc Liquid] Allergies Allergy/AdvReac Type Severity Reaction Status Date / Time meropenem [From Merrem] Allergy Rash/Hives Verified 10/23/24 17:40 ceftolozane [From Zerbaxa] AdvReac Rapid Verified 10/23/24 17:40 Heart Rate tazobactam [From Zerbaxa] AdvReac Rapid Verified 10/23/24 17:40 Heart Rate Physical Exam Vitals: Vital Signs Temp Pulse Resp BP Pulse Ox 10/23/24 21:23 98.9 F 93 22 131/113 96 10/23/24 19:20 101 H 16 98 10/23/24 18:00 88 18 149/82 97 10/23/24 17:34 98.8 F 59 L 16 123/77 92 L Intake and Output 10/23/24 10/23/24 10/24/24 14:59 22:59 06:59 Other: Weight 86.183 kg Results CBC & Chem 7: 10/23/24 18:09 10/24/24 01:13 Labs: Abnormal Lab Results - Last 24 Hours (Table) 10/23/24 10/23/24 10/23/24 Range/Units 18:09 18:09 18:09 WBC 16.3 H (3.8-10.6) k/uL Neutrophils # 13.7 H (1.3-7.7) k/uL Sodium 153 H (137-145) mmol/L Chloride 117 H (98-107) mmol/L BUN 31 H (9-20) mg/dL Glucose 109 H (74-99) mg/dL Troponin I 0.059 H* (0.000-0.034) ng/mL Urine Protein (Negative) Urine Bacteria (None) /hpf Urine Mucus (None) /hpf 10/23/24 10/23/24 10/23/24 Range/Units 18:25 21:25 21:25 WBC (3.8-10.6) k/uL Neutrophils # (1.3-7.7) k/uL Sodium 152 H (137-145) mmol/L Chloride (98-107) mmol/L BUN (9-20) mg/dL Glucose (74-99) mg/dL Troponin I 0.062 H* (0.000-0.034) ng/mL Urine Protein 1+ H (Negative) Urine Bacteria Rare H (None) /hpf Urine Mucus Rare H (None) /hpf
[2024-10-24] MEDS: CEFEPIME 2 GM in SODIUM CHLORIDE 0.9% 100 ML IVPB SCH (00:50)
[2024-10-24] MEDS: VANCOMYCIN 1,500 MG in SODIUM CHLORIDE 0.9% 500 ML 500 ML IVPB SCH (00:58)
[2024-10-24 06:02] LABS: Glucose,Whole Blood 123 mg/dL (70-110)
[2024-10-24] MEDS: INSULIN ASPART (NovoLOG) 100 UNIT/ML VIAL SQ SCH (06:23)
--- NOTE | 2024-10-24 08:04 | XR ---
EXAMINATION TYPE: XR chest 1V portable DATE OF EXAM: 10/24/2024 CLINICAL HISTORY: Difficulty breathing and pneumonia progress study. TECHNIQUE: Single AP portable semiupright view of the chest is obtained. COMPARISON: Chest x-ray from one day earlier FINDINGS: Patchy right basilar opacity redemonstrated. Left lung remains clear. Cardiac silhouette s ize is stable and within normal limits. Osseous structures are intact. IMPRESSION: Persistent patchy right lower lung acute infiltrate and/or atelectasis. No significant ch eben from one day earlier. [facility], , 10/24/2024 8:01 AM
[2024-10-24] MEDS ORDERED: NON FORMULARY DRUG (Cranberry 450mg 450 MG) PEG/G-TUBE SCH (09:00)
[2024-10-24] MEDS ORDERED: AZITHROMYCIN 500 MG TAB PO SCH (09:00)
[2024-10-24] MEDS: IPRATROPIUM-ALBUTEROL 3 ML NEB INHALATION SCH (09:00)
[2024-10-24] MEDS: FAMOTIDINE 20 MG TAB PEG/G-TUBE SCH (09:02)
[2024-10-24] MEDS: oxyBUTYnin chloride 5 MG TAB PEG/G-TUBE SCH (09:02)
[2024-10-24] MEDS: ASPIRIN 81 MG PEG/G-TUBE SCH (09:02)
[2024-10-24] MEDS: ENOXAPARIN 40 MG/0.4 ML SYRINGE SQ SCH (09:02)
[2024-10-24] MEDS: LACOSAMIDE 150 MG TABLET PEG/G-TUBE SCH (09:02)
[2024-10-24] MEDS: LEVOFLOXACIN 750 MG TAB PEG/G-TUBE SCH (09:03)
--- NOTE | 2024-10-24 10:33 | P.CONS ---
History of Present Illness - Reason for Consult Consult date: 10/24/24 wound care - History of Present Illness This is a 64-year-old patient being seen on 3 S. for a stage II pressure ulcer to the sacrum. Patient has a stage II pressure ulcer measuring approximately 3 x 2 x 0.2 cm with granulation slough and nonviable tissue present within the wound bed wound edges are attached to the wound base no tunneling or undermining noted. Patient's past medical history significant for MS, GERD, hypertension, PEG tube, DVT. Review Of Systems: Constitutional: No fever, no chills, no night sweats. No weight change. No weakness, fatigue or lethargy. No daytime sleepiness. Integumentary:reports wounds, no lesions. No rash or pruritus. No unusual bruising. No change in hair or nails. Physical exam: General Appearance: Alert, cooperative, no distress, appears stated age. Skin: See HPI all other Skin color, texture, tugor normal, no rashes or lesions. Neurologic: Alert oriented x3 Assessment: 1. Stage II pressure ulcer 2. MS Plan: 1. Apply honey gel bordered foam change Sunday. Turn patient every 2 hours.Utilize air-filled cushion when sitting. Utilize appropriate surface for offloading. Patient may benefit from advanced wound care and wound care setting would be happy to see him upon discharge. Thank for the consultation any questions please contact the wound care center DNP note has been reviewed and discussed with Dr. Martin and the impression and plan of care has been directed as dictated. Past Medical History Past Medical History: Deep Vein Thrombosis (DVT), GERD/Reflux, Hypertension, Musculoskeletal Disorder, Neurologic Disorder, Pneumonia, Seizure Disorder, Skin Disorder Additional Past Medical History / Comment(s): Pt diagnosed with MS at the age of 39 yrs, seizure/pneumonia/UTI with sepsis/respirtory failure/vented, cognitive impairment, sister states when he is feeling well he could speak a few words/nod head appropriately/give thumbs up/roll eyes but when ill is nonverbal, pt has dysphagia/NPO with peg tube, contractures, last seizure 07/2020, trigeminal neuralgia, dysarthria/anarthria/neurogenic bladder with IDC-UTIs/sepsis, multiple pneumonias, recent seizure-last one 07/03/20, incontinent of stool, pt has had decubitus ulcer coccyx-sister unsure of skin condition at this time, past anemia r/t heparin/epistaxiis which involved nasal packing/transfusions, DVT bilateral arms, hypoxia, oxygen at 2L/NC, L femoral head fracture History of Any Multi-Drug Resistant Organisms: ESBL, MRSA, Other MDRO Year Discovered:: 03/09/21-MRSA; 11/23/19 ESBL-E.coli MDRO Source:: Abdomen-Peg site MRSA; Urine -ESBL Past Surgical History: Tonsillectomy Additional Past Surgical History / Comment(s): Gastrostomy, peg tube, I&D coccyx decubitius, bronchoscopy, bilateral lasik eye surgery. Past Anesthesia/Blood Transfusion Reactions: No Reported Reaction Additional Past Anesthesia/Blood Transfusion Reaction / Comm: Pt has received blood in past without reaction. Past Psychological History: Depression Smoking Status: Never smoker Past Alcohol Use History: None Reported Past Drug Use History: None Reported - Past Family History Father Family Medical History: Myocardial Infarction (CO) Mother Family Medical History: Hypertension, Myocardial Infarction (CO) Additional Family Medical History / Comment(s): Mother of a CO at the age of 73 yrs. Medications and Allergies Home Medications Medication Instructions Recorded Confirmed Type Aspirin 81 mg PEG/G-TUBE DAILY 11/27/20 10/23/24 History Acetaminophen Tab [Tylenol] 650 mg PEG/G-TUBE Q4H PRN 06/13/21 10/23/24 History Metoprolol Tartrate [Lopressor] 50 mg PEG/G-TUBE BID 06/13/21 10/23/24 History carBAMazepine [carBAMazepine Oral 100 mg PEG/G-TUBE TID 07/02/21 10/23/24 History Susp] Lactulose 20 gm PEG/G-TUBE TID 01/03/22 10/23/24 History Scopolamine [Scopolamine 1 MG/72 1 patch TRANSDERM Q72H 01/03/22 10/23/24 History HR patch] oxyBUTYnin chloride 5 mg PEG/G-TUBE DAILY 12/19/22 10/23/24 History Famotidine [Pepcid] 20 mg PEG/G-TUBE DAILY 07/14/23 10/23/24 History Ipratropium-Albuterol Nebulize 3 ml INHALATION RT-TID 11/18/23 10/23/24 History [Duoneb 0.5 mg-3 mg/3 ml Soln] Lacosamide [Vimpat Oral Soln] 150 mg PEG/G-TUBE BID 11/18/23 10/23/24 History Baclofen 5 mg PEG/G-TUBE TID 07/25/24 10/23/24 History Cranberry 450mg 450 mg PEG/G-TUBE DAILY 07/25/24 10/23/24 History amantadine HCL [Amantadine] 100 mg PEG/G-TUBE DAILY 07/25/24 10/23/24 History bisacodyL [Dulcolax] 10 mg RECTAL DAILY PRN 07/25/24 10/23/24 History Amino Acids/Protein Hydrolys 30 ml PEG/G-TUBE BID 10/23/24 10/23/24 History [Pro-Stat Awc Liquid] Allergies Allergy/AdvReac Type Severity Reaction Status Date / Time meropenem [From Merrem] Allergy Rash/Hives Verified 10/23/24 17:40 ceftolozane [From Zerbaxa] AdvReac Rapid Verified 10/23/24 17:40 Heart Rate tazobactam [From Zerbaxa] AdvReac Rapid Verified 10/23/24 17:40 Heart Rate Physical Exam Vitals: Vital Signs Temp Pulse Pulse Resp BP BP Pulse Ox 10/24/24 09:09 84 10/24/24 09:04 94 L 10/24/24 09:00 78 10/24/24 08:57 98.5 F 96 20 124/73 95 10/24/24 03:14 98.9 F 100 24 122/78 94 L 10/24/24 01:11 2 L 10/23/24 22:25 98.1 F 102 H 22 161/85 96 10/23/24 21:23 98.9 F 93 22 131/113 96 10/23/24 19:20 101 H 16 98 10/23/24 18:00 88 18 149/82 97 10/23/24 17:34 98.8 F 59 L 16 123/77 92 L Intake and Output 10/23/24 10/24/24 10/24/24 22:59 06:59 14:59 Output Total 1000 Balance -1000 Output: Urine 1000 Other: Voiding Method Indwelling Catheter Weight 86.183 kg Results CBC & Chem 7: 10/23/24 18:09 10/24/24 06:47 Labs: Abnormal Lab Results - Last 24 Hours (Table) 10/23/24 10/23/24 10/23/24 Range/Units 18:09 18:09 18:09 WBC 16.3 H (3.8-10.6) k/uL Neutrophils # 13.7 H (1.3-7.7) k/uL Sodium 153 H (137-145) mmol/L Chloride 117 H (98-107) mmol/L BUN 31 H (9-20) mg/dL Glucose 109 H (74-99) mg/dL POC Glucose (mg/dL) (70-110) mg/dL Troponin I 0.059 H* (0.000-0.034) ng/mL Urine Protein (Negative) Urine Bacteria (None) /hpf Urine Mucus (None) /hpf 10/23/24 10/23/24 10/23/24 Range/Units 18:25 21:25 21:25 WBC (3.8-10.6) k/uL Neutrophils # (1.3-7.7) k/uL Sodium 152 H (137-145) mmol/L Chloride (98-107) mmol/L BUN (9-20) mg/dL Glucose (74-99) mg/dL POC Glucose (mg/dL) (70-110) mg/dL Troponin I 0.062 H* (0.000-0.034) ng/mL Urine Protein 1+ H (Negative) Urine Bacteria Rare H (None) /hpf Urine Mucus Rare H (None) /hpf 10/24/24 10/24/24 10/24/24 Range/Units 01:13 06:00 06:47 WBC (3.8-10.6) k/uL Neutrophils # (1.3-7.7) k/uL Sodium 152 H 149 H (137-145) mmol/L Chloride (98-107) mmol/L BUN (9-20) mg/dL Glucose (74-99) mg/dL POC Glucose (mg/dL) 123 H (70-110) mg/dL Troponin I (0.000-0.034) ng/mL Urine Protein (Negative) Urine Bacteria (None) /hpf Urine Mucus (None) /hpf Assessment and Plan (1) Pressure injury of sacral region, stage 2 Current Visit: No Status: Acute Code(s): L89.152 - PRESSURE ULCER OF SACRAL REGION, STAGE 2 SNOMED Code(s): 81472830819419 (2) Multiple sclerosis, primary progressive Current Visit: No Status: Chronic Code(s): G35 - MULTIPLE SCLEROSIS SNOMED Code(s): 823138289
[2024-10-24 11:10] LABS: Glucose,Whole Blood 95 mg/dL (70-110)
[2024-10-24] MEDS: DEXTROSE 5%-0.45% NACL 1,000 ML IV SCH (11:52)
--- NOTE | 2024-10-24 15:23 | P.PN ---
Subjective Progress Note Date: 10/24/24 Hospital course: Patient is a 64-year-old male with a history of multiple sclerosis, functional quadriplegia, chronic Stein catheter placement, recurrent catheter associated UTI, seizure disorder, debility, bedbound, chronic unhealing ulcer, PEG tube dependent came in from [facility] [place] via EMS with concerns for altered mental status. Patient was noted to have high fever at the facility. Patient is nonverbal and is unable to provide any useful history. History acquired from EMS chart, EMR and RN. Patient was recently hospitalized for altered mental status secondary to ur osepsis. Initial lab evaluation in the ED shows WBC 16.3, hemoglobin 16.4, MCV 91.5, sodium 153, potassium 3.8, chloride 117, bicarb 23, BUN 13, creatinine 0.80, glucose 109, troponin I 0.059. Vitals on arrival 98.8 F, pulse rate 101 respiratory rate 16, blood pressure 123/77, oxygen saturation 98% with 2 L nasal cannula Chest x-ray interpreted independently shows concerns for pneumonia in the right lower lung field EKG interpreted in ER apparently shows sinus tachycardia with frequent najma tricular premature complexes in a bigeminal pattern. WI interval 142 ms, QRS duration 100 ms, QTc 348 ms. Urinalysis shows mild proteinuria, negative nitrite, negative leukocyte esterase, normal WBC Viral serology negative for influenza type A and B, RSV and COVID-19 Subjective: Patient was seen and evaluated bedside. Pertinent positives and negatives as discussed above, a complete review of systems was performed and all other systems are negative. Vitals: Signs Reviewed Physical examination: Vital signs: As described in HPI General: non toxic, no distress, appears older than stated age, overweight Derm: unhealed 2 cm stage II sacral ulcer with surrounding erythema with minimal purulent discharge Head: atraumatic, normocephalic, symmetric Eyes: EOMI, anicteric sclera, pupils equal round reactive to light Neck: No cervical lymphadenopathy, trachea midline, supple Mouth: no lip lesion, mucus membranes moist Cardiovascular: S1S2 reg, no murmur, positive dorsalis pedis pulse bilateral, no edema Lungs: CTA bilateral, no rhonchi, no rales, no accessory muscle use Abdominal: soft, nontender to palpation, no guarding, G-tube in place and site is clean and intact Ext: muscle strength 2-3 out of 5 in all 4 extremities grossly, no gross muscle atrophy, no contractures, Neuro: Unable to assess Psych: Patient is A&O x 0 Assessment and Plan: This is a Patient is a 64-year-old male with a history of multiple sclerosis, functional quadriplegia, chronic Stein catheter placement, recurrent catheter associated UTI, seizure disorder, debility, bedbound, chronic unhealing ulcer, PEG tube dependent [place] [facility] [place] concerns for altered mental status likely secondary to pneumonia. #Acute toxic metabolic encephalopathy secondary to sepsis and acute hypernatremia #Sepsis secondary to community-acquired pneumonia #Acute hypoxemic respiratory failure secondary to above Meet sepsis criteria with source of infection is pneumonia WBC 16.3, heart rate 101 Chest x-ray shows opacity in the right lower lung field c/w IV D5W at 150 cc/hr sputum culture pending blood culture x 2 sets pending procalcitonin within normal limits 0.14 urine Legionella antigen test negative Risk factors for Pseudomonas and MRSA based on previous cultures, recent hospitalization and stay in long-term care facility d/c levofloxacin c/w cefepime 2 g every and vancomycin dosing per pharmacy for antipseudomonal and MRSA coverage Monitor urine output Monitor I's and O's Patient currently on 2 L nasal cannula saturating at 96% Continue DuoNebs scheduled and [id number] Continue monitor vital signs CBC in a.m. Establish baseline mentation Consult infectious disease #Hypernatremia secondary to dehydration in the setting of poor oral intake Na on admission 153mEq/L Free water deficit of appx 4 L Change IV D5W to 2 D5 half-normal saline at 150 cc/HR Monitor sodium every 4 hour with goal of no more than 2 meq per 4 hours drop in Na correct Na by appr 10mEq/L in 24hr period to reach target ~140mEq/L BMP in a.m. start free water flushes through PEG 100 cc per 4 hrs #Stage II chronic nonhealing decubitus ulcer Consult wound care #Type II VT secondary to sepsis Troponin 0.059 --> 0.062 Unlikely to be ACS Continue cardiac telemetry #Hyperglycemia Serum glucose 109 Accu-Cheks and sliding scale insulin Check HbA1c Chronic conditions: Multiple sclerosis Debility: Consult PT/OT Status post PEG tube placement: Consult dietitian for for nutrition support Status post chronic indwelling catheter Home medication reconciled DVT prophylaxis: Amienox 40 mg subcu daily GI prophylaxis: Pepcid through G-tube F: D5 1/2 NS at 150 cc/HR E: Replete that needed N: PEG tube dependent feeding; consulted dietitian for nutrition support A: Debility Code status: Unknown, unable to obtain at this time Anticipated discharge place: Pending clinical course Anticipated discharge time: Pending clinical course Lisette Craft MD PGY-1 IM Dictation was produced using [employer] dictation software. please excuse any grammatical, word or spelling errors. I saw and evaluated the patient during the browning and critical portions of this encounter, and discussed the case in detail with the resident author of this note, I agree with the Assessment and Plan, and my changes, if any, are highlighted in blue. Objective - Vital Signs Vital signs: Vital Signs Temp 98.9 F 10/24/24 03:14 Pulse 100 10/24/24 03:14 Resp 24 10/24/24 03:14 BP 122/78 10/24/24 03:14 Pulse Ox 94 L 10/24/24 03:14 FiO2 Intake & Output 10/23/24 10/24/24 10/24/24 18:59 06:59 18:59 Weight 86.183 kg 86.183 kg Other: Voiding Method Indwelling Catheter - Labs CBC & Chem 7: 10/23/24 18:09 10/24/24 14:33 Labs: Abnormal Lab Results - Last 24 Hours (Table) 10/23/24 10/23/24 10/23/24 Range/Units 18:09 18:09 18:09 WBC 16.3 H (3.8-10.6) k/uL Neutrophils # 13.7 H (1.3-7.7) k/uL Sodium 153 H (137-145) mmol/L Chloride 117 H (98-107) mmol/L BUN 31 H (9-20) mg/dL Glucose 109 H (74-99) mg/dL POC Glucose (mg/dL) (70-110) mg/dL Troponin I 0.059 H* (0.000-0.034) ng/mL Urine Protein (Negative) Urine Bacteria (None) /hpf Urine Mucus (None) /hpf 10/23/24 10/23/24 10/23/24 Range/Units 18:25 21:25 21:25 WBC (3.8-10.6) k/uL Neutrophils # (1.3-7.7) k/uL Sodium 152 H (137-145) mmol/L Chloride (98-107) mmol/L BUN (9-20) mg/dL Glucose (74-99) mg/dL POC Glucose (mg/dL) (70-110) mg/dL Troponin I 0.062 H* (0.000-0.034) ng/mL Urine Protein 1+ H (Negative) Urine Bacteria Rare H (None) /hpf Urine Mucus Rare H (None) /hpf 10/24/24 10/24/24 Range/Units 01:13 06:00 WBC (3.8-10.6) k/uL Neutrophils # (1.3-7.7) k/uL Sodium 152 H (137-145) mmol/L Chloride (98-107) mmol/L BUN (9-20) mg/dL Glucose (74-99) mg/dL POC Glucose (mg/dL) 123 H (70-110) mg/dL Troponin I (0.000-0.034) ng/mL Urine Protein (Negative) Urine Bacteria (None) /hpf Urine Mucus (None) /hpf
[2024-10-24 16:10] LABS: Glucose,Whole Blood 94 mg/dL (70-110)
[2024-10-24 20:07] LABS: Glucose,Whole Blood 88 mg/dL (70-110)
[2024-10-24] MEDS: ACETAMINOPHEN TAB 325 MG TAB PEG/G-TUBE PRN (21:14)
[2024-10-25 05:59] LABS: Glucose,Whole Blood 114 mg/dL (70-110)
[2024-10-25 06:14] LABS: African American GFR (CKD) >90 (>60 ml/min/1.73 sqM); Anion Gap 8 mmol/L; Blood Urea Nitrogen 22 mg/dL (9-20); Calcium 7.9 mg/dL (8.4-10.2); Carbon Dioxide 23 mmol/L (22-30); Chloride 115 mmol/L (98-107); Glucose 110 mg/dL (74-99); Magnesium 2.2 mg/dL (1.6-2.3); Non-African American GFR(CKD) >90 (>60 ml/min/1.73 sqM); Sodium 146 mmol/L (137-145)
[2024-10-25] MEDS: INSULIN ASPART (NovoLOG) 100 UNIT/ML VIAL SQ SCH (06:16)
--- NOTE | 2024-10-25 07:24 | P.CONS ---
History of Present Illness - Reason for Consult Consult date: 10/24/24 Pneumonia Requesting physician: Lisette Craft - Chief Complaint Fever x 1 day - History of Present Illness Patient is a 64-year-old male with a past medical history significant for gastroesophageal reflux disease seizure disorder MS in this patient who is bedbound longterm resident and did have multiple admission to the hospital for UTI and pneumonia has been sent to the hospital for evaluation of fever patient also noticed to be somewhat more lethargic than usual on presentation to the hospital patient was afebrile and no fever have been called subsequently patient was mildly tachycardic on admission with a heart rate of 102 subsequently normalized he was not hypotensive O2 sats of 92% on room air documented on presentation to the hospital patient did have white count of 16.3 creatinine has been normal liver isms are normal troponin was point elevated urine has been negative influenza RSV COVID testing was negative blood culture potential currently pending patient did have a chest x-ray while correlation for atelectasis or pneumonia right lower lung field patient was started on cefepime and vancomycin infectious disease was consulted for further management of antibiotic therapy Review of Systems Positive points has been mentioned in HPI complete review could not be obtained because of his underlying mental status Past Medical History Past Medical History: Deep Vein Thrombosis (DVT), GERD/Reflux, Hypertension, Musculoskeletal Disorder, Neurologic Disorder, Pneumonia, Seizure Disorder, Skin Disorder Additional Past Medical History / Comment(s): Pt diagnosed with MS at the age of 39 yrs, seizure/pneumonia/UTI with sepsis/respirtory failure/vented, cognitive impairment, sister states when he is feeling well he could speak a few words/nod head appropriately/give thumbs up/roll eyes but when ill is nonverbal, pt has dysphagia/NPO with peg tube, contractures, last seizure 07/2020, trigeminal neuralgia, dysarthria/anarthria/neurogenic bladder with IDC-UTIs/sepsis, multiple pneumonias, recent seizure-last one 07/03/20, incontinent of stool, pt has had decubitus ulcer coccyx-sister unsure of skin condition at this time, past anemia r/t heparin/epistaxiis which involved nasal packing/transfusions, DVT bilateral arms, hypoxia, oxygen at 2L/NC, L femoral head fracture History of Any Multi-Drug Resistant Organisms: ESBL, MRSA, Other MDRO Year Discovered:: 03/09/21-MRSA; 11/23/19 ESBL-E.coli MDRO Source:: Abdomen-Peg site MRSA; Urine -ESBL Past Surgical History: Tonsillectomy Additional Past Surgical History / Comment(s): Gastrostomy, peg tube, I&D coccyx decubitius, bronchoscopy, bilateral lasik eye surgery. Past Anesthesia/Blood Transfusion Reactions: No Reported Reaction Additional Past Anesthesia/Blood Transfusion Reaction / Comm: Pt has received blood in past without reaction. Past Psychological History: Depression Smoking Status: Never smoker Past Alcohol Use History: None Reported Past Drug Use History: None Reported - Past Family History Father Family Medical History: Myocardial Infarction (PR) Mother Family Medical History: Hypertension, Myocardial Infarction (PR) Additional Family Medical History / Comment(s): Mother of a PR at the age of 73 yrs. Medications and Allergies Home Medications Medication Instructions Recorded Confirmed Type Aspirin 81 mg PEG/G-TUBE DAILY 11/27/20 10/23/24 History Acetaminophen Tab [Tylenol] 650 mg PEG/G-TUBE Q4H PRN 06/13/21 10/23/24 History Metoprolol Tartrate [Lopressor] 50 mg PEG/G-TUBE BID 06/13/21 10/23/24 History carBAMazepine [carBAMazepine Oral 100 mg PEG/G-TUBE TID 07/02/21 10/23/24 History Susp] Lactulose 20 gm PEG/G-TUBE TID 01/03/22 10/23/24 History Scopolamine [Scopolamine 1 MG/72 1 patch TRANSDERM Q72H 01/03/22 10/23/24 History HR patch] oxyBUTYnin chloride 5 mg PEG/G-TUBE DAILY 12/19/22 10/23/24 History Famotidine [Pepcid] 20 mg PEG/G-TUBE DAILY 07/14/23 10/23/24 History Ipratropium-Albuterol Nebulize 3 ml INHALATION RT-TID 11/18/23 10/23/24 History [Duoneb 0.5 mg-3 mg/3 ml Soln] Lacosamide [Vimpat Oral Soln] 150 mg PEG/G-TUBE BID 11/18/23 10/23/24 History Baclofen 5 mg PEG/G-TUBE TID 07/25/24 10/23/24 History Cranberry 450mg 450 mg PEG/G-TUBE DAILY 07/25/24 10/23/24 History amantadine HCL [Amantadine] 100 mg PEG/G-TUBE DAILY 07/25/24 10/23/24 History bisacodyL [Dulcolax] 10 mg RECTAL DAILY PRN 07/25/24 10/23/24 History Amino Acids/Protein Hydrolys 30 ml PEG/G-TUBE BID 10/23/24 10/23/24 History [Pro-Stat Awc Liquid] Allergies Allergy/AdvReac Type Severity Reaction Status Date / Time meropenem [From Merrem] Allergy Rash/Hives Verified 10/23/24 17:40 ceftolozane [From Zerbaxa] AdvReac Rapid Verified 10/23/24 17:40 Heart Rate tazobactam [From Zerbaxa] AdvReac Rapid Verified 10/23/24 17:40 Heart Rate Physical Exam Vitals: Vital Signs Temp Pulse Pulse Resp BP BP Pulse Ox 10/24/24 11:16 98.8 F 81 18 102/62 96 10/24/24 09:09 84 10/24/24 09:04 94 L 10/24/24 09:00 78 10/24/24 08:57 98.5 F 96 20 124/73 95 10/24/24 03:14 98.9 F 100 24 122/78 94 L 10/24/24 01:11 2 L 10/23/24 22:25 98.1 F 102 H 22 161/85 96 10/23/24 21:23 98.9 F 93 22 131/113 96 10/23/24 19:20 101 H 16 98 10/23/24 18:00 88 18 149/82 97 10/23/24 17:34 98.8 F 59 L 16 123/77 92 L Intake and Output 10/24/24 10/24/24 10/24/24 06:59 14:59 22:59 Output Total 1000 Balance -1000 Output: Urine 1000 Other: Voiding Method Indwelling Catheter Indwelling Catheter Weight 86.183 kg GENERAL DESCRIPTION: Elderly male lying in bed, no distress. No tachypnea or accessory muscle of respiration use. HEENT: Shows Pallor , no scleral icterus. Oral mucous membrane is dry. NECK: Trachea central, no thyromegaly. LUNGS: Unlabored breathing. Coarse breath sounds bilaterally HEART: S1, S2, regular rate and rhythm. No loud murmur ABDOMEN: Soft, no tenderness , guarding or rigidity, no organomegaly EXTREMITIES: No edema of feet. SKIN: No rash, no masses palpable. NEUROLOGICAL: The patient is awake, nonverbal orientation could not be determined Results CBC & Chem 7: 10/23/24 18:09 10/25/24 05:30 Labs: Abnormal Lab Results - Last 24 Hours (Table) 10/23/24 10/23/24 10/23/24 Range/Units 18:09 18:09 18:09 WBC 16.3 H (3.8-10.6) k/uL Neutrophils # 13.7 H (1.3-7.7) k/uL Sodium 153 H (137-145) mmol/L Chloride 117 H (98-107) mmol/L BUN 31 H (9-20) mg/dL Glucose 109 H (74-99) mg/dL POC Glucose (mg/dL) (70-110) mg/dL Troponin I 0.059 H* (0.000-0.034) ng/mL Urine Protein (Negative) Urine Bacteria (None) /hpf Urine Mucus (None) /hpf 10/23/24 10/23/24 10/23/24 Range/Units 18:25 21:25 21:25 WBC (3.8-10.6) k/uL Neutrophils # (1.3-7.7) k/uL Sodium 152 H (137-145) mmol/L Chloride (98-107) mmol/L BUN (9-20) mg/dL Glucose (74-99) mg/dL POC Glucose (mg/dL) (70-110) mg/dL Troponin I 0.062 H* (0.000-0.034) ng/mL Urine Protein 1+ H (Negative) Urine Bacteria Rare H (None) /hpf Urine Mucus Rare H (None) /hpf 10/24/24 10/24/24 10/24/24 Range/Units 01:13 06:00 06:47 WBC (3.8-10.6) k/uL Neutrophils # (1.3-7.7) k/uL Sodium 152 H 149 H (137-145) mmol/L Chloride (98-107) mmol/L BUN (9-20) mg/dL Glucose (74-99) mg/dL POC Glucose (mg/dL) 123 H (70-110) mg/dL Troponin I (0.000-0.034) ng/mL Urine Protein (Negative) Urine Bacteria (None) /hpf Urine Mucus (None) /hpf 10/24/24 10/24/24 Range/Units 10:28 14:33 WBC (3.8-10.6) k/uL Neutrophils # (1.3-7.7) k/uL Sodium 147 H 148 H (137-145) mmol/L Chloride (98-107) mmol/L BUN (9-20) mg/dL Glucose (74-99) mg/dL POC Glucose (mg/dL) (70-110) mg/dL Troponin I (0.000-0.034) ng/mL Urine Protein (Negative) Urine Bacteria (None) /hpf Urine Mucus (None) /hpf Assessment and Plan (1) Pneumonia Current Visit: Yes Status: Acute Code(s): J18.9 - PNEUMONIA, UNSPECIFIED ORGANISM SNOMED Code(s): 330271761 (2) Sepsis Current Visit: Yes Status: Acute Code(s): A41.9 - SEPSIS, UNSPECIFIED ORGANISM SNOMED Code(s): 29385976 (3) Allergy to multiple antibiotics Current Visit: No Status: Acute Code(s): Z88.1 - ALLERGY STATUS TO OTHER ANTIBIOTIC AGENTS SNOMED Code(s): 421452346 Plan: 1patient is in the hospital with sepsis in this patient who did have tac hycardia elevated white count meeting criteria for SIRS/sepsis source likely right lower lobe pneumonia concerning for possible gram-negative as no other obvious focus of infection in this patient UA has been negative abdomen is soft no evidence of any cellulitis or joint swelling 2-patient with multiple antibiotic ALLERGIES that would limit the number of antibiotic safe to use 3-try to obtain sputum for Gram stain culture and MRSA nasal screen 4-patient will be empirically treated with cefepime and vancomycin while waiting for the workup to be completed We will follow on clinical condition and cultures to further adjust medication if needed Thank you for this consultation we will follow the patient along with you Dictation was produced using [employer] dictation software. please excuse any gr ammatical, word or spelling errors. Time with Patient: Greater than 30
[2024-10-25 07:29] LABS: Basophils % (A) 0 %; Eosinophils # (A) 0.5 k/uL (0-0.7); Eosinophils % (A) 5 %; HCT 49.4 % (39.0-53.0); HGB 15.2 gm/dL (13.0-17.5); Hypochromasia Marked; Lymphocytes # (A) 0.9 k/uL (1.0-4.8); Lymphocytes % (A) 11 %; MCH 29.3 pg (25.0-35.0); MCHC 30.8 g/dL (31.0-37.0); MCV 95.1 fL (80.0-100.0); Mean Platelet Volume 9.1; Monocytes # (A) 0.6 k/uL (0-1.0); Monocytes % (A) 7 %; Neutrophils # (A) 6.3 k/uL (1.3-7.7); Neutrophils % (A) 74 %; Platelet Count 175 k/uL (150-450); RBC 5.19 m/uL (4.30-5.90); WBC 8.5 k/uL (3.8-10.6)
[2024-10-25 11:20] LABS: Glucose,Whole Blood 162 mg/dL (70-110)
--- NOTE | 2024-10-25 12:38 | P.PN ---
Subjective Progress Note Date: 10/25/24 Hospital course: Patient is a 64-year-old male with a history of multiple sclerosis, functional quadriplegia, chronic Stein catheter placement, recurrent catheter associated UTI, seizure disorder, debility, bedbound, chronic unhealing ulcer, PEG tube dependent came in from [facility] via EMS with concerns for altered mental status. Patient was noted to have high fever at the facility. Patient is nonverbal and is unable to provide any useful history. History acquired from EMS chart, EMR and RN. Patient was recently hospitalized for altered mental status secondary to ur osepsis. Initial lab evaluation in the ED shows WBC 16.3, hemoglobin 16.4, MCV 91.5, sodium 153, potassium 3.8, chloride 117, bicarb 23, BUN 13, creatinine 0.80, glucose 109, troponin I 0.059. Vitals on arrival 98.8 F, pulse rate 101 respiratory rate 16, blood pressure 123/77, oxygen saturation 98% with 2 L nasal cannula Chest x-ray interpreted independently shows concerns for pneumonia in the right lower lung field EKG interpreted in ER apparently shows sinus tachycardia with frequent najma tricular premature complexes in a bigeminal pattern. GA interval 142 ms, QRS duration 100 ms, QTc 348 ms. Urinalysis shows mild proteinuria, negative nitrite, negative leukocyte esterase, normal WBC Viral serology negative for influenza type A and B, RSV and COVID-19 Subjective: Patient was seen and evaluated bedside. Pertinent positives and negatives as discussed above, a complete review of systems was performed and all other systems are negative. Vitals: Signs Reviewed Physical examination: Vital signs: As described in HPI General: non toxic, no distress, appears older than stated age, overweight Derm: unhealed 2 cm stage II sacral ulcer with surrounding erythema with minimal purulent discharge Head: atraumatic, normocephalic, symmetric Eyes: EOMI, anicteric sclera, pupils equal round reactive to light Neck: No cervical lymphadenopathy, trachea midline, supple Mouth: no lip lesion, mucus membranes moist Cardiovascular: S1S2 reg, no murmur, positive dorsalis pedis pulse bilateral, no edema Lungs: CTA bilateral, no rhonchi, no rales, no accessory muscle use Abdominal: soft, nontender to palpation, no guarding, G-tube in place and site is clean and intact Ext: muscle strength 2-3 out of 5 in all 4 extremities grossly, no gross muscle atrophy, no contractures, Neuro: Unable to assess Psych: Patient is A&O x 0 Assessment and Plan: This is a Patient is a 64-year-old male with a history of multiple sclerosis, functional quadriplegia, chronic Stein catheter placement, recurrent catheter associated UTI, seizure disorder, debility, bedbound, chronic unhealing ulcer, PEG tube dependent came in from [facility] via EMS with concerns for altered mental status likely secondary to pneumonia. #Acute toxic metabolic encephalopathy secondary to sepsis and acute hypernatremia #Sepsis secondary to community-acquired pneumonia #Acute hypoxemic respiratory failure secondary to above Meet sepsis criteria with source of infection is pneumonia WBC 16.3, heart rate 101 Chest x-ray shows opacity in the right lower lung field c/w IV D5W at 150 cc/hr sputum culture pending blood culture x 2 sets pending procalcitonin within normal limits 0.14 urine Legionella antigen test negative Risk factors for Pseudomonas and MRSA based on previous cultures, recent hospitalization and stay in long-term care facility d/c levofloxacin c/w cefepime 2 g every and vancomycin dosing per pharmacy for antipseudomonal and MRSA coverage Monitor urine output Monitor I's and O's Patient currently on 2 L nasal cannula saturating at 96% Continue DuoNebs scheduled and [id number] Continue monitor vital signs CBC in a.m. Establish baseline mentation Consult infectious disease, discussed with them, continue vanc/cefepime until further microbiology available #Hypernatremia secondary to dehydration in the setting of poor oral intake Na on admission 153mEq/L Free water deficit of appx 4 L Change IV D5W to 2 D5 half-normal saline at 150 cc/HR Monitor sodium every 4 hour with goal of no more than 2 meq per 4 hours drop in Na correct Na by appr 10mEq/L in 24hr period to reach target ~140mEq/L BMP in a.m. start free water flushes through PEG 100 cc per 4 hrs #Stage II chronic nonhealing decubitus ulcer Consult wound care #Type II SC secondary to sepsis Troponin 0.059 --> 0.062 Unlikely to be ACS Continue cardiac telemetry #Hyperglycemia Serum glucose 109 Accu-Cheks and sliding scale insulin Check HbA1c Chronic conditions: Multiple sclerosis Debility: Consult PT/OT Status post PEG tube placement: Consult dietitian for for nutrition support Status post chronic indwelling catheter Home medication reconciled DVT prophylaxis: Lovenox 40 mg subcu daily GI prophylaxis: Pepcid through G-tube F: D5 1/2 NS at 150 cc/HR E: Replete that needed N: PEG tube dependent feeding; consulted dietitian for nutrition support A: Debility Code status: Unknown, unable to obtain at this time Anticipated discharge place: Pending clinical course Anticipated discharge time: Pending clinical course Dictation was produced using [employer] dictation software. please excuse any grammatical, word or spelling errors. Objective - Vital Signs Vital signs: Vital Signs Temp 97.6 F 10/25/24 07:47 Pulse 80 10/25/24 12:11 Resp 20 10/25/24 07:47 BP 145/73 10/25/24 07:47 Pulse Ox 98 10/25/24 07:47 FiO2 Intake & Output 10/24/24 10/25/24 10/25/24 18:59 06:59 18:59 Intake Total 100 540 Output Total 1000 800 Balance -900 -800 540 Weight 86.183 kg Intake: Tube Feeding 100 540 Output: Urine 1000 800 Other: Voiding Method Indwelling Catheter Indwelling Catheter Indwelling Catheter - Labs CBC & Chem 7: 10/25/24 06:52 10/25/24 05:30 Labs: Abnormal Lab Results - Last 24 Hours (Table) 10/24/24 10/24/24 10/25/24 Range/Units 14:33 18:35 05:30 MCHC (31.0-37.0) g/dL Lymphocytes # (1.0-4.8) k/uL Sodium 148 H 148 H 146 H (137-145) mmol/L Chloride 115 H (98-107) mmol/L BUN 22 H (9-20) mg/dL Glucose 110 H (74-99) mg/dL POC Glucose (mg/dL) (70-110) mg/dL Calcium 7.9 L (8.4-10.2) mg/dL 10/25/24 10/25/24 10/25/24 Range/Units 05:57 06:52 11:18 MCHC 30.8 L (31.0-37.0) g/dL Lymphocytes # 0.9 L (1.0-4.8) k/uL Sodium (137-145) mmol/L Chloride (98-107) mmol/L BUN (9-20) mg/dL Glucose (74-99) mg/dL POC Glucose (mg/dL) 114 H 162 H (70-110) mg/dL Calcium (8.4-10.2) mg/dL Microbiology - Last 24 Hours (Table) 10/23/24 17:52 Urine Culture - Preliminary Urine,Voided Group D Enterococcus 10/23/24 18:10 Blood Culture - Preliminary Blood
[2024-10-25] MEDS: VANCOMYCIN TROUGH DUE 1 EACH MISC MISCELLANE ONE (12:46)
[2024-10-25 16:17] LABS: Glucose,Whole Blood 82 mg/dL (70-110)
[2024-10-25 20:32] LABS: Glucose,Whole Blood 91 mg/dL (70-110)
[2024-10-26 00:26] LABS: Glucose,Whole Blood 136 mg/dL (70-110)
[2024-10-26] MEDS: VANCOMYCIN 1,250 MG in SODIUM CHLORIDE 0.9% 250 ML IVPB SCH (02:17)
[2024-10-26 06:11] LABS: Glucose,Whole Blood 95 mg/dL (70-110)
[2024-10-26 07:36] LABS: Basophils % (A) 0 %; Eosinophils # (A) 0.5 k/uL (0-0.7); Eosinophils % (A) 7 %; HCT 43.6 % (39.0-53.0); HGB 13.9 gm/dL (13.0-17.5); Hypochromasia Slight; Lymphocytes # (A) 0.7 k/uL (1.0-4.8); Lymphocytes % (A) 10 %; MCH 29.3 pg (25.0-35.0); MCHC 31.9 g/dL (31.0-37.0); MCV 91.9 fL (80.0-100.0); Mean Platelet Volume 8.4; Monocytes # (A) 0.5 k/uL (0-1.0); Monocytes % (A) 7 %; Neutrophils # (A) 5.4 k/uL (1.3-7.7); Neutrophils % (A) 74 %; Platelet Count 208 k/uL (150-450); RBC 4.75 m/uL (4.30-5.90); RDW 15.1 % (11.5-15.5); WBC 7.3 k/uL (3.8-10.6)
[2024-10-26 08:01] LABS: African American GFR (CKD) >90 (>60 ml/min/1.73 sqM); Non-African American GFR(CKD) >90 (>60 ml/min/1.73 sqM)
[2024-10-26 09:10] LABS: ALT 26 U/L (4-49); African American GFR (CKD) >90 (>60 ml/min/1.73 sqM); Chloride 109 mmol/L (98-107); Magnesium 2.1 mg/dL (1.6-2.3); Non-African American GFR(CKD) >90 (>60 ml/min/1.73 sqM); Total Bilirubin 0.6 mg/dL (0.2-1.3)
[2024-10-26 09:35] LABS: Albumin 2.9 g/dL (3.5-5.0); Anion Gap 9 mmol/L; Blood Urea Nitrogen 16 mg/dL (9-20); Calcium 7.9 mg/dL (8.4-10.2); Carbon Dioxide 23 mmol/L (22-30); Glucose 99 mg/dL (74-99); Sodium 141 mmol/L (137-145)
--- NOTE | 2024-10-26 09:50 | P.PN ---
Subjective Progress Note Date: 10/25/24 Principal diagnosis: Reason for follow-up is pneumonia Patient is a 64-year-old male with a past medical history significant for gastroesophageal reflux disease seizure disorder MS in this patient who is bedbound prison resident and did have multiple admission to the hospital for UTI and pneumonia has been sent to the hospital for evaluation of fever patient also noticed to be somewhat more lethargic, patient did have a negative UA chest x-ray concerning for possible right lobar pneumonia prompting this consultation. On today's evaluation that is 10/25/2024, patient has been afebrile ACB breathing comfortably on 2 L nasal oxygen did have a congested cough no vomiting diarrhea and the changes reported by the nursing staff. Patient white count normalized to 8.5 creatinine 0.72 blood and sputum cultures currently pending urine is growing Enterococcus Objective - Vital Signs Vital signs: Vital Signs Temp 97.6 F 10/25/24 07:47 Pulse 80 10/25/24 12:11 Resp 20 10/25/24 07:47 BP 145/73 10/25/24 07:47 Pulse Ox 98 10/25/24 07:47 FiO2 Intake & Output 10/24/24 10/25/24 10/25/24 18:59 06:59 18:59 Intake Total 100 540 Output Total 1000 800 Balance -900 -800 540 Weight 86.183 kg Intake: Tube Feeding 100 540 Output: Urine 1000 800 Other: Voiding Method Indwelling Catheter Indwelling Catheter Indwelling Catheter - Exam GENERAL DESCRIPTION: An elderly male lying in bed in no distress RESPIRATORY SYSTEM: Unlabored breathing , coarse breath sounds bilaterally HEART: S1 S2 regular rate and rhythm , ABDOMEN: Soft , no tenderness EXTREMITIES: No edema feet - Labs CBC & Chem 7: 10/26/24 07:12 10/26/24 07:12 Labs: Abnormal Lab Results - Last 24 Hours (Table) 10/24/24 10/24/24 10/25/24 Range/Units 14:33 18:35 05:30 MCHC (31.0-37.0) g/dL Lymphocytes # (1.0-4.8) k/uL Sodium 148 H 148 H 146 H (137-145) mmol/L Chloride 115 H (98-107) mmol/L BUN 22 H (9-20) mg/dL Glucose 110 H (74-99) mg/dL POC Glucose (mg/dL) (70-110) mg/dL Calcium 7.9 L (8.4-10.2) mg/dL 10/25/24 10/25/24 10/25/24 Range/Units 05:57 06:52 11:18 MCHC 30.8 L (31.0-37.0) g/dL Lymphocytes # 0.9 L (1.0-4.8) k/uL Sodium (137-145) mmol/L Chloride (98-107) mmol/L BUN (9-20) mg/dL Glucose (74-99) mg/dL POC Glucose (mg/dL) 114 H 162 H (70-110) mg/dL Calcium (8.4-10.2) mg/dL Microbiology - Last 24 Hours (Table) 10/23/24 17:52 Urine Culture - Preliminary Urine,Voided Group D Enterococcus 10/23/24 18:10 Blood Culture - Preliminary Blood Assessment and Plan (1) Pneumonia Current Visit: Yes Status: Acute Code(s): J18.9 - PNEUMONIA, UNSPECIFIED ORGANISM SNOMED Code(s): 338874981 (2) Sepsis Current Visit: Yes Status: Acute Code(s): A41.9 - SEPSIS, UNSPECIFIED ORGANISM SNOMED Code(s): 49167791 (3) Allergy to multiple antibiotics Current Visit: No Status: Acute Code(s): Z88.1 - ALLERGY STATUS TO OTHER ANTIBIOTIC AGENTS SNOMED Code(s): 429393842 Plan: 1patient is in the hospital with sepsis in this patient who did have tachycardia elevated white count meeting criteria for SIRS/sepsis source likely right lower lobe pneumonia concerning for possible gram-negative as no other obvious focus of infection in this patient UA has been negative abdomen is soft no evidence of any cellulitis or joint swelling 2-patient with multiple antibiotic ALLERGIES that would limit the number of antibiotic safe to use 3-patient blood, sputum Gram stain culture and MRSA nasal screen are currently pending 4-patient did have resolution of his fever white normalized, will be treated with cefepime and vancomycin while waiting for the cultures to be completed Dictation was produced using [employer] software. please excuse any grammatical, word or spelling errors.
[2024-10-26 10:06] LABS: AST 34 U/L (17-59); Alkaline Phosphatase 69 U/L (38-126)
[2024-10-26 11:07] LABS: Glucose,Whole Blood 112 mg/dL (70-110)
[2024-10-26] MEDS: bisacodyL 10 MG SUPP RECTAL PRN (11:07)
--- NOTE | 2024-10-26 12:10 | P.PN ---
Subjective Progress Note Date: 10/26/24 Hospital course: Patient is a 64-year-old male with a history of multiple sclerosis, functional quadriplegia, chronic Stein catheter placement, recurrent catheter associated UTI, seizure disorder, debility, bedbound, chronic unhealing ulcer, PEG tube dependent came in from [facility] [place] via EMS with concerns for altered mental status. Patient was noted to have high fever at the facility. Patient is nonverbal and is unable to provide any useful history. History acquired from EMS chart, EMR and RN. Patient was recently hospitalized for altered mental status secondary to u rosepsis. Initial lab evaluation in the ED shows WBC 16.3, hemoglobin 16.4, MCV 91.5, sodium 153, potassium 3.8, chloride 117, bicarb 23, BUN 13, creatinine 0.80, glucose 109, troponin I 0.059. Vitals on arrival 98.8 F, pulse rate 101 respiratory rate 16, blood pressure 123/77, oxygen saturation 98% with 2 L nasal cannula Chest x-ray interpreted independently shows concerns for pneumonia in the right lower lung field EKG interpreted in ER apparently shows sinus tachycardia with frequent ve ntricular premature complexes in a bigeminal pattern. ME interval 142 ms, QRS duration 100 ms, QTc 348 ms. Urinalysis shows mild proteinuria, negative nitrite, negative leukocyte esterase, normal WBC Viral serology negative for influenza type A and B, RSV and COVID-19 Subjective: Patient was seen and evaluated bedside. Patient has not had reported bowel movement for 3 days. On examination he had noted abdominal tenderness. PEG tube showing a lot of residual. Plan is to order a CT abdomen with contrast. Pertinent positives and negatives as discussed above, a complete review of systems was performed and all other systems are negative. Vitals: Signs Reviewed Physical examination: Vital signs: As described in HPI General: non toxic, no distress, appears older than stated age, overweight Derm: unhealed 2 cm stage II sacral ulcer with surrounding erythema with minimal purulent discharge Head: atraumatic, normocephalic, symmetric Eyes: EOMI, anicteric sclera, pupils equal round reactive to light Neck: No cervical lymphadenopathy, trachea midline, supple Mouth: no lip lesion, mucus membranes moist Cardiovascular: S1S2 reg, no murmur, positive dorsalis pedis pulse bilateral, no edema Lungs: CTA bilateral, no rhonchi, no rales, no accessory muscle use Abdominal: soft, nontender to palpation, no guarding, G-tube in place and site is clean and intact Ext: muscle strength 2-3 out of 5 in all 4 extremities grossly, no gross muscle atrophy, no contractures, Neuro: Unable to assess Psych: Patient is A&O x 0 Data Received Today: Pertinent Labs: Sodium 146, WBC 8.5 Imaging: CT abdomen/pelvis with contrast pending Assessment and Plan: This is a Patient is a 64-year-old male with a history of multiple sclerosis, functional quadriplegia, chronic Stein catheter placement, recurrent catheter associated UTI, seizure disorder, debility, bedbound, chronic unhealing ulcer, PEG tube dependent [place] [facility] [place] with concerns for altered mental status likely secondary to pneumonia. #Acute toxic metabolic encephalopathy secondary to sepsis and acute hypernatremia #Sepsis secondary to community-acquired pneumonia #Acute hypoxemic respiratory failure secondary to above Meet sepsis criteria with source of infection is pneumonia WBC 16.3, heart rate 101 Chest x-ray shows opacity in the right lower lung field c/w IV D5W at 150 cc/hr sputum culture pending MRSA/MSSA nares negative Urine culture showing group D Enterococcus, blood culture showing no growth after 48 hours procalcitonin within normal limits 0.14 urine Legionella antigen test negative Risk factors for Pseudomonas and MRSA based on previous cultures, recent hospitalization and stay in long-term care facility c/w cefepime 2 g every and vancomycin dosing per pharmacy for antipseudomonal and MRSA coverage Monitor urine output and for bowel movement Monitor I's and O's Patient currently on 2 L nasal cannula saturating at 96% Continue DuoNebs scheduled and [id number] Continue monitor vital signs CBC in a.m. Consult infectious disease, discussed with them, continue vanc/cefepime until further microbiology available I spoke with his sister on the phone regarding his baseline mental status: Sister states that he is lost the ability to speak, but is normally awake and alert. He is able to make eye contact, move his arms and can follow basic/simple commands. She is also his power of attorney lawyer and we discussed CODE STATUS for him. She says he is a full code at this moment. # Abdominal pain Rule out ileus Patient was having high residual output from PEG feeding tube On physical examination patient was displaying tenderness to palpation in the left lower quadrant CT abdomen/pelvis with contrast pending Hold enteral feedings due to high residual output, possible ileus #Hypernatremia secondary to dehydration in the setting of poor oral intake, resolved Na on admission 153mEq/L => 146 => 141 Free water deficit of appx 4 L IV D5W to 2 D5 half-normal saline at 150 cc/HR Monitor sodium every 4 hour with goal of no more than 2 meq per 4 hours drop in Na correct Na by appr 10mEq/L in 24hr period to reach target ~140mEq/L BMP in a.m. start free water flushes through PEG 100 cc per 4 hrs #Stage II chronic nonhealing decubitus ulcer Consult wound care #Type II MN secondary to sepsis Troponin 0.059 --> 0.062 Unlikely to be ACS Continue cardiac telemetry #Hyperglycemia Serum glucose 109 Accu-Cheks and sliding scale insulin Check HbA1c Chronic conditions: Multiple sclerosis Debility: Consult PT/OT Status post PEG tube placement: Consult dietitian for for nutrition support Status post chronic indwelling catheter Home medication reconciled DVT prophylaxis: Lovenox 40 mg subcu daily GI prophylaxis: Pepcid through G-tube F: D5 1/2 NS at 150 cc/HR E: Replete that needed N: PEG tube dependent feeding; consulted dietitian for nutrition support A: Debility Code status: Unknown, unable to obtain at this time Anticipated discharge place: Pending clinical course Anticipated discharge time: Pending clinical course Dictation was produced using [employer] dictation software. please excuse any grammatical, word or spelling errors. I saw and evaluated the patient during the browning and critical portions of this encounter, and discussed the case in detail with the resident author of this note, I agree with the Assessment and Plan, and my changes, if any, are h ighlighted in blue. Objective - Vital Signs Vital signs: Vital Signs Temp 98.3 F 10/26/24 04:00 Pulse 74 10/26/24 04:00 Resp 16 10/26/24 04:00 BP 159/81 10/26/24 04:00 Pulse Ox 95 10/26/24 04:00 FiO2 Intake & Output 10/25/24 10/25/24 10/26/24 06:59 18:59 06:59 Intake Total 990 15 Output Total 800 650 Balance -800 340 15 Weight 75.5 kg Intake: Tube Feeding 990 15 Output: Urine 800 650 Other: Voiding Method Indwelling Catheter Indwelling Catheter Indwelling Catheter - Labs CBC & Chem 7: 10/26/24 07:12 10/26/24 08:39 Labs: Abnormal Lab Results - Last 24 Hours (Table) 10/25/24 10/25/24 10/26/24 Range/Units 06:52 11:18 00:25 MCHC 30.8 L (31.0-37.0) g/dL Lymphocytes # 0.9 L (1.0-4.8) k/uL POC Glucose (mg/dL) 162 H 136 H (70-110) mg/dL Microbiology - Last 24 Hours (Table) 10/23/24 18:10 Blood Culture - Preliminary Blood 10/24/24 13:30 Nasal Screen MRSA/MSSA - Final Nasal Swab 10/23/24 17:52 Urine Culture - Preliminary Urine,Voided Group D Enterococcus
--- NOTE | 2024-10-26 12:41 | CT ---
EXAMINATION TYPE: CT abdomen pelvis w con DATE OF EXAM: 10/26/2024 COMPARISON: 10/17/2023 CLINICAL INDICATION: Male, 64 years old with history of abd pain; PHH, abdominal pain. pt poor histor magdaleno TECHNIQUE: Performed without Oral Contrast and with IV Contrast, patient injected with 75ml mL of Isovue 300. CT DLP: 1710.[address] CTDI: mGy Automated exposure control for dose reduction was used. FINDINGS: Mild posterior bibasilar infiltrates, possibly atelectasis. Pneumonia in the left lung base not exclu ded. The gallbladder is normal without distention, wall thickening, pericholecystic fluid or gallstones. T here is no biliary ductal dilatation. There is no focal mass or organomegaly involving the liver, pancreas, spleen or adrenal glands. There is no solid renal mass or hydronephrosis and there is homogeneous contrast enhancement of the r enal parenchyma. There is mild atrophy of the left kidney. The caliber the abdominal aorta is normal is no retroperitoneal adenopathy or hemorrhage. The bowel loops are normal in caliber and there is no evidence of dilatation or obstruction. No infla mmatory changes are identified in the bowel wall or mesentery. There has been interval development of a large amount of stool in the sigmoid colon. There is no free intraperitoneal air or fluid. Note is made of a PEG tube and Stein catheter unchanged in position. There is destructive process with marked abnormal soft tissue density in the left subcapital region l eft femur. It is unchanged compared to the prior study. Findings raise the question of a infectious p rocess or chronic nonhealed subcapital fracture. There is moderate degenerative arthritis of the righ t hip. IMPRESSION: 1. Interval development of large amount of stool within the sigmoid colon. There is no bowel obstruct ion. 2. Mild atrophy of the left kidney. 3. No change in the PEG tube Stein catheter positions. 4. Infectious/destructive process involving the left hip as described above. It is unchanged compared to the prior study. 5. Interval development of small infiltrates in the posterior lower lobes bilaterally, left greater t krishnamurthy right. The findings could represent atelectasis although left lower lobe pneumonia is not exclude d and follow-up is recommended. [facility], , 10/26/2024 12:38 PM
--- NOTE | 2024-10-26 14:36 | P.PN ---
Subjective Progress Note Date: 10/26/24 Principal diagnosis: Reason for follow-up is pneumonia Patient is a 64-year-old male with a past medical history significant for gastroesophageal reflux disease seizure disorder MS in this patient who is bedbound [facility] resident and did have multiple admission to the hospital for UTI and pneumonia has been sent to the hospital for evaluation of fever patient also noticed to be somewhat more lethargic, patient did have a negative UA chest x-ray concerning for possible right lobar pneumonia prompting this consultation. On today's evaluation that is 10/26/2024, Patient is afebrile patient is currently on 2 L nasal oxygen and breathing comfortably patient does not seem to be any distressed no vomiting or diarrhea reported by nursing staff patient cannot provide any history. Patient white count 7.3, creatinine 0.63 urine grew Enterococcus faecalis sputum cultures currently pending blood culture so far pending Objective - Vital Signs Vital signs: Vital Signs Temp 98.4 F 10/26/24 12:32 Pulse 78 10/26/24 13:32 Resp 18 10/26/24 13:32 BP 168/96 10/26/24 12:32 Pulse Ox 100 10/26/24 12:32 FiO2 Intake & Output 10/25/24 10/26/24 10/26/24 18:59 06:59 18:59 Intake Total 990 15 8 Output Total 650 900 Balance 340 15 -892 Weight 75.5 kg Intake: IV 8 Invasive Line 2 8 Tube Feeding 990 15 Output: Urine 650 900 Other: Voiding Method Indwelling Catheter Indwelling Catheter Indwelling Catheter - Exam GENERAL DESCRIPTION: An elderly male lying in bed in no distress RESPIRATORY SYSTEM: Unlabored breathing , coarse breath sounds bilaterally HEART: S1 S2 regular rate and rhythm , ABDOMEN: Soft , no tenderness EXTREMITIES: No edema feet - Labs CBC & Chem 7: 10/26/24 07:12 10/26/24 08:39 Labs: Abnormal Lab Results - Last 24 Hours (Table) 10/26/24 10/26/24 10/26/24 Range/Units 00: 07:12 08:39 Lymphocytes # 0.7 L (1.0-4.8) k/uL Chloride 109 H (98-107) mmol/L Creatinine 0.63 L (0.66-1.25) mg/dL POC Glucose (mg/dL) 136 H (70-110) mg/dL Calcium 7.9 L (8.4-10.2) mg/dL Total Protein 6.0 L (6.3-8.2) g/dL Albumin 2.9 L (3.5-5.0) g/dL 10/26/24 Range/Units 11:04 Lymphocytes # (1.0-4.8) k/uL Chloride (98-107) mmol/L Creatinine (0.66-1.25) mg/dL POC Glucose (mg/dL) 112 H (70-110) mg/dL Calcium (8.4-10.2) mg/dL Total Protein (6.3-8.2) g/dL Albumin (3.5-5.0) g/dL Microbiology - Last 24 Hours (Table) 10/25/24 06:10 Gram Stain - Preliminary Sputum Sputum Culture - Preliminary 10/23/24 17:52 Urine Culture - Final Urine,Voided Enterococcus faecalis 10/23/24 18:10 Blood Culture - Preliminary Blood 10/24/24 13:30 Nasal Screen MRSA/MSSA - Final Nasal Swab Assessment and Plan (1) Pneumonia Current Visit: Yes Status: Acute Code(s): J18.9 - PNEUMONIA, UNSPECIFIED ORGANISM SNOMED Code(s): 527361537 (2) Sepsis Current Visit: Yes Status: Acute Code(s): A41.9 - SEPSIS, UNSPECIFIED ORGANISM SNOMED Code(s): 87284361 (3) Allergy to multiple antibiotics Current Visit: No Status: Acute Code(s): Z88.1 - ALLERGY STATUS TO OTHER ANTIBIOTIC AGENTS SNOMED Code(s): 719619919 Plan: 1patient is in the hospital with sepsis in this patient who did have tachycardia elevated white count meeting criteria for SIRS/sepsis source likely right lower lobe pneumonia concerning for possible gram-negative as no other obvious focus of infection in this patient UA has been negative abdomen is soft no evidence of any cellulitis or joint swelling 2-patient with multiple antibiotic ALLERGIES that would limit the number of antibiotic safe to use 3-patient blood, sputum Gram stain culture currently pending MRSA nasal screen came back negative urine grew Enterococcus no UA was negative 4-patient did have resolution of his fever white normalized, 5patient will be treated with cefepime while waiting for sputum culture finalized discontinue vancomycin Dictation was produced using [employer] dictation software. please excuse any grammatical, word or spelling errors. Time with Patient: Less than 30
[2024-10-26] MEDS: DOCUSATE 283 MG/5 ML ENEMA RECTAL STA (15:52)
[2024-10-26] MEDS: NA PHOS,M-B/NA PHOS,DI-BA 133 ML ENEMA RECTAL STA (15:52)
[2024-10-26 16:14] LABS: Glucose,Whole Blood 72 mg/dL (70-110)
[2024-10-26 19:56] LABS: Glucose,Whole Blood 98 mg/dL (70-110)
[2024-10-27 00:01] LABS: Glucose,Whole Blood 123 mg/dL (70-110)
[2024-10-27 06:01] LABS: Glucose,Whole Blood 118 mg/dL (70-110)
[2024-10-27 06:35] LABS: Basophils % (A) 0 %; Eosinophils # (A) 0.6 k/uL (0-0.7); Eosinophils % (A) 8 %; HCT 45.5 % (39.0-53.0); HGB 14.3 gm/dL (13.0-17.5); Hypochromasia Moderate; Lymphocytes # (A) 0.9 k/uL (1.0-4.8); Lymphocytes % (A) 13 %; MCH 29.1 pg (25.0-35.0); MCHC 31.4 g/dL (31.0-37.0); MCV 92.6 fL (80.0-100.0); Mean Platelet Volume 8.3; Monocytes # (A) 0.6 k/uL (0-1.0); Monocytes % (A) 9 %; Neutrophils # (A) 4.5 k/uL (1.3-7.7); Neutrophils % (A) 66 %; Platelet Count 224 k/uL (150-450); RBC 4.91 m/uL (4.30-5.90); WBC 6.8 k/uL (3.8-10.6)
[2024-10-27 06:56] LABS: ALT 23 U/L (4-49); AST 18 U/L (17-59); African American GFR (CKD) >90 (>60 ml/min/1.73 sqM); Albumin 2.9 g/dL (3.5-5.0); Alkaline Phosphatase 90 U/L (38-126); Anion Gap 9 mmol/L; Blood Urea Nitrogen 15 mg/dL (9-20); Calcium 8.3 mg/dL (8.4-10.2); Carbon Dioxide 23 mmol/L (22-30); Chloride 108 mmol/L (98-107); Glucose 132 mg/dL (74-99); Magnesium 2.2 mg/dL (1.6-2.3); Non-African American GFR(CKD) >90 (>60 ml/min/1.73 sqM); Potassium 3.7 mmol/L (3.5-5.1); Sodium 140 mmol/L (137-145); Total Bilirubin 0.4 mg/dL (0.2-1.3); Total Protein 5.8 g/dL (6.3-8.2)
[2024-10-27 11:10] VITALS: BMI 23.8
[2024-10-27 11:19] LABS: Glucose,Whole Blood 122 mg/dL (70-110)
--- NOTE | 2024-10-27 12:21 | XR ---
EXAMINATION TYPE: XR abdomen acute w cxr DATE OF EXAM: 10/27/2024 COMPARISON: 10/24/2024 CLINICAL INDICATION: Male, 64 years old with history of abd pain; FINDINGS: Low lung volumes. Heart mildly enlarged. Diffuse interstitial opacities. No consolidation o r pleural effusion. No evidence for free intraperitoneal air. There appears to be a large stool burden. Progressive dilatation of the mid to distal sigmoid now 9.6 cm versus 8.7 cm yesterday. Chronic nonunion left femoral neck fracture. No definite dilated small bowel loops. IMPRESSION: 1. Hypoventilatory changes in ongoing interstitial densities in the lungs. Correlate to exclude mild CHF. 2. Large stool burden. Progressive dilatation of the mid to distal sigmoid now measuring 9.6 cm versu s 8.7 cm, yesterday. Correlate to exclude fecal impaction, possible secondary distal colonic obstruct ion. Follow-up to exclude underlying colitis. 3. No free air seen. [facility], Workstation: [facility], 10/27/2024 12:18 PM
--- NOTE | 2024-10-27 13:10 | P.CNOR ---
History of Present Illness - HPI Consult date: 10/27/24 History of present illness: Chris is a 64-year-old male with a history of multiple sclerosis, functional quadriplegia, chronic Stein catheter placement, recurrent catheter associated UTI, seizure disorder, debility, bedbound, chronic unhealing ulcer, and PEG tube dependent. He is a resident at [facility] and came to the ED via EMS with concerns for altered mental status. Patient was noted to have high fever at the facility. Patient is nonverbal and is unable to provide any history, history obtained from EMR. Orthopedics was consulted for abnormal findings to the left femoral neck on CT. Review of Systems ROS unobtainable: due to mental status Past Medical History Past Medical History: Deep Vein Thrombosis (DVT), GERD/Reflux, Hypertension, Musculoskeletal Disorder, Neurologic Disorder, Pneumonia, Seizure Disorder, Skin Disorder Additional Past Medical History / Comment(s): Pt diagnosed with MS at the age of 39 yrs, seizure/pneumonia/UTI with sepsis/respirtory failure/vented, cognitive impairment, sister states when he is feeling well he could speak a few words/nod head appropriately/give thumbs up/roll eyes but when ill is nonverbal, pt has dysphagia/NPO with peg tube, contractures, last seizure 07/2020, trigeminal neuralgia, dysarthria/anarthria/neurogenic bladder with IDC-UTIs/sepsis, multiple pneumonias, recent seizure-last one 07/03/20, incontinent of stool, pt has had decubitus ulcer coccyx-sister unsure of skin condition at this time, past anemia r/t heparin/epistaxiis which involved nasal packing/transfusions, DVT bilateral arms, hypoxia, oxygen at 2L/NC, L femoral head fracture History of Any Multi-Drug Resistant Organisms: ESBL, MRSA, Other MDRO Year Discovered:: 03/09/21-MRSA; 11/23/19 ESBL-E.coli MDRO Source:: Abdomen-Peg site MRSA; Urine -ESBL Past Surgical History: Tonsillectomy Additional Past Surgical History / Comment(s): Gastrostomy, peg tube, I&D coccyx decubitius, bronchoscopy, bilateral lasik eye surgery. Past Anesthesia/Blood Transfusion Reactions: No Reported Reaction Additional Past Anesthesia/Blood Transfusion Reaction / Comm: Pt has received blood in past without reaction. Past Psychological History: Depression Smoking Status: Never smoker Past Alcohol Use History: None Reported Past Drug Use History: None Reported - Past Family History Father Family Medical History: Myocardial Infarction (AK) Mother Family Medical History: Hypertension, Myocardial Infarction (AK) Additional Family Medical History / Comment(s): Mother of a AK at the age of 73 yrs. Medications and Allergies Home Medications Medication Instructions Recorded Confirmed Type Aspirin 81 mg PEG/G-TUBE DAILY 11/27/20 10/23/24 History Acetaminophen Tab [Tylenol] 650 mg PEG/G-TUBE Q4H PRN 06/13/21 10/23/24 History Metoprolol Tartrate [Lopressor] 50 mg PEG/G-TUBE BID 06/13/21 10/23/24 History carBAMazepine [carBAMazepine Oral 100 mg PEG/G-TUBE TID 07/02/21 10/23/24 History Susp] Lactulose 20 gm PEG/G-TUBE TID 01/03/22 10/23/24 History Scopolamine [Scopolamine 1 MG/72 1 patch TRANSDERM Q72H 01/03/22 10/23/24 History HR patch] oxyBUTYnin chloride 5 mg PEG/G-TUBE DAILY 12/19/22 10/23/24 History Famotidine [Pepcid] 20 mg PEG/G-TUBE DAILY 07/14/23 10/23/24 History Ipratropium-Albuterol Nebulize 3 ml INHALATION RT-TID 11/18/23 10/23/24 History [Duoneb 0.5 mg-3 mg/3 ml Soln] Lacosamide [Vimpat Oral Soln] 150 mg PEG/G-TUBE BID 11/18/23 10/23/24 History Baclofen 5 mg PEG/G-TUBE TID 07/25/24 10/23/24 History Cranberry 450mg 450 mg PEG/G-TUBE DAILY 07/25/24 10/23/24 History amantadine HCL [Amantadine] 100 mg PEG/G-TUBE DAILY 07/25/24 10/23/24 History bisacodyL [Dulcolax] 10 mg RECTAL DAILY PRN 07/25/24 10/23/24 History Amino Acids/Protein Hydrolys 30 ml PEG/G-TUBE BID 10/23/24 10/23/24 History [Pro-Stat Awc Liquid] Sennosides [Senokot] 8.6 mg PEG/G-TUBE BID #60 tab 10/28/24 Rx polyethylene glycoL 3350 [Miralax] 17 gm PEG/G-TUBE DAILY #30 packet 10/28/24 Rx Allergies Allergy/AdvReac Type Severity Reaction Status Date / Time meropenem [From Merrem] Allergy Rash/Hives Verified 10/23/24 17:40 ceftolozane [From Zerbaxa] AdvReac Rapid Verified 10/23/24 17:40 Heart Rate tazobactam [From Zerbaxa] AdvReac Rapid Verified 10/23/24 17:40 Heart Rate Physical Examination The patient is a 64 year old male that is no acute distress. He is alert and nonverbal. The patient's head is normocephalic and atraumatic. Exam of the left lower extremity reveals no pain upon external and internal rotation of the hip. No pain upon palpation to the lateral hip. There is no pain upon logrolling. Bilateral calves are soft and nontender. Neurological and circulatory status is intact. Results Per CT report there is a destructive process with marked abnormal soft tissue density to the left subcapital region of the left femur. This is unchanged compared to the prior study. When compared to previous CTs this is a unchanged chronic nonhealed subcapital fracture dating back previous to 2018. No acute changes at this time. - Labs Labs: Abnormal Lab Results - Last 24 Hours (Table) 10/26/24 10/27/24 10/27/24 Range/Units 23:59 05:57 06:08 Lymphocytes # 0.9 L (1.0-4.8) k/uL Chloride (98-107) mmol/L Creatinine (0.66-1.25) mg/dL Glucose (74-99) mg/dL POC Glucose (mg/dL) 123 H 118 H (70-110) mg/dL Calcium (8.4-10.2) mg/dL Total Protein (6.3-8.2) g/dL Albumin (3.5-5.0) g/dL 10/27/24 10/27/24 Range/Units 06:08 11:17 Lymphocytes # (1.0-4.8) k/uL Chloride 108 H (98-107) mmol/L Creatinine 0.64 L (0.66-1.25) mg/dL Glucose 132 H (74-99) mg/dL POC Glucose (mg/dL) 122 H (70-110) mg/dL Calcium 8.3 L (8.4-10.2) mg/dL Total Protein 5.8 L (6.3-8.2) g/dL Albumin 2.9 L (3.5-5.0) g/dL Microbiology - Last 24 Hours (Table) 10/25/24 06:10 Gram Stain - Final Sputum Sputum Culture - Final 10/23/24 18:10 Blood Culture - Preliminary Blood 10/23/24 17:52 Urine Culture - Final Urine,Voided Enterococcus faecalis H & H 10/23/24 10/25/24 10/26/24 Range/Units 18:09 06:52 07:12 Hgb 16.4 15.2 13.9 (13.0-17.5) gm/dL Hct 51.9 49.4 43.6 (39.0-53.0) % 10/27/24 Range/Units 06:08 Hgb 14.3 (13.0-17.5) gm/dL Hct 45.5 (39.0-53.0) % Coagulation 10/23/24 Range/Units 18:09 INR 1.1 (<1.2) Result Diagrams: 10/28/24 10:30 10/28/24 10:30 Assessment and Plan (1) Subcapital fracture of left femur Status: Acute Code(s): S72.012A - UNSP INTRACAPSULAR FRACTURE OF LEFT FEMUR, INIT FOR CLOS FX SNOMED Code(s): 373269466 (2) Functional quadriplegia secondary to MS Status: Acute Code(s): G35 - MULTIPLE SCLEROSIS; R53.2 - FUNCTIONAL QUADRIPLEGIA SNOMED Code(s): 129921313595586 (3) Multiple sclerosis Status: Acute Code(s): G35 - MULTIPLE SCLEROSIS SNOMED Code(s): 56368322 Plan: The clinical and CT findings were discussed with Dr. Gleason. 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 No acute findings seen. The patient is nontender to the left hip at this time. No surgical intervention is warranted. We will sign off from an orthopedic standpoint. Patient was independently evaluated by myself and I agree with the above findings. Clinically patient has no signs of infection of the left hip, additionally his CT findings this admission are unchanged from previous studies likely representing chronic changes from non operatively treated femoral neck fracture.
--- NOTE | 2024-10-27 17:11 | P.PN ---
Subjective Progress Note Date: 10/27/24 Hospital course: Patient is a 64-year-old male with a history of multiple sclerosis, functional quadriplegia, chronic Stein catheter placement, recurrent catheter associated UTI, seizure disorder, debility, bedbound, chronic unhealing ulcer, PEG tube dependent came in from [facility] via EMS with concerns for altered mental status. Patient was noted to have high fever at the facility. Patient is nonverbal and is unable to provide any useful history. History acquired from EMS chart, EMR and RN. Patient was recently hospitalized for altered mental status secondary to ur osepsis. Initial lab evaluation in the ED shows WBC 16.3, hemoglobin 16.4, MCV 91.5, sodium 153, potassium 3.8, chloride 117, bicarb 23, BUN 13, creatinine 0.80, glucose 109, troponin I 0.059. Vitals on arrival 98.8 F, pulse rate 101 respiratory rate 16, blood pressure 123/77, oxygen saturation 98% with 2 L nasal cannula Chest x-ray interpreted independently shows concerns for pneumonia in the right lower lung field EKG interpreted in ER apparently shows sinus tachycardia with frequent najma tricular premature complexes in a bigeminal pattern. NE interval 142 ms, QRS duration 100 ms, QTc 348 ms. Urinalysis shows mild proteinuria, negative nitrite, negative leukocyte esterase, normal WBC Viral serology negative for influenza type A and B, RSV and COVID-19 Subjective: Patient was seen and evaluated bedside. Patient with reported small bowel movements. On examination he had noted abdominal tenderness and distention. PEG tube showing less residual compared to yesterday. Pertinent positives and negatives as discussed above, [facility] and all other systems are negative. Vitals: Signs Reviewed Physical examination: Vital signs: As described in HPI General: non toxic, no distress, appears older than stated age, overweight Derm: unhealed 2 cm stage II sacral ulcer with surrounding erythema with minimal purulent discharge Head: atraumatic, normocephalic, symmetric Eyes: EOMI, anicteric sclera, pupils equal round reactive to light Neck: No cervical lymphadenopathy, trachea midline, supple Mouth: no lip lesion, mucus membranes moist Cardiovascular: S1S2 reg, no murmur, positive dorsalis pedis pulse bilateral, no edema Lungs: CTA bilateral, no rhonchi, no rales, no accessory muscle use Abdominal: Distended, diffuse tenderness to palpation, no guarding, G-tube in place and site is clean and intact Ext: muscle strength 2-3 out of 5 in all 4 extremities grossly, no gross muscle atrophy, no contractures, Neuro: Unable to assess Psych: Patient is A&O x 0 Data Received Today: Pertinent Labs: Sodium 140, WBC 6.8 Imaging: Serial abdominal x-ray showing large stool burden, possible fecal impaction Assessment and Plan: This is a Patient is a 64-year-old male with a history of multiple sclerosis, functional quadriplegia, chronic Stein catheter placement, recurrent catheter associated UTI, seizure disorder, debility, bedbound, chronic unhealing ulcer, PEG tube dependent came in from [facility] via EMS with concerns for altered mental status likely secondary to pneumonia. #Acute toxic metabolic encephalopathy secondary to sepsis and acute hypernatremia #Sepsis secondary to community-acquired pneumonia #Acute hypoxemic respiratory failure secondary to above Meet sepsis criteria with source of infection is pneumonia WBC 16.3, heart rate 101 Chest x-ray shows opacity in the right lower lung field c/w IV D5W at 150 cc/hr sputum culture pending MRSA/MSSA nares negative Urine culture showing group D Enterococcus, blood culture showing no growth after 48 hours procalcitonin within normal limits 0.14 urine Legionella antigen test negative Risk factors for Pseudomonas and MRSA based on previous cultures, recent hospitalization and stay in long-term care facility c/w cefepime 2 g every and vancomycin dosing per pharmacy for antipseudomonal a nd MRSA coverage Monitor urine output and for bowel movement Monitor I's and O's Patient currently on 2 L nasal cannula saturating at 96% Continue DuoNebs scheduled and [id number] Continue monitor vital signs CBC in a.m. Consult infectious disease, discussed with them, continue vanc/cefepime until further microbiology available I spoke with his sister on the phone regarding his baseline mental status: Sister states that he is lost the ability to speak, but is normally awake and alert. He is able to make eye contact, move his arms and can follow basic/simple commands. She is also his power of packaging sales representative and we discussed CODE STATUS for him. She says he is a full code at this moment. Previous abdominal/pelvis CT showed suspicious infectious/destructive process involving the left hip was seen on prior imaging. Ortho was consulted regarding CT, no surgical intervention needed # Abdominal pain # Constipation Rule out ileus Patient was having high residual output from PEG feeding tube On physical examination patient was displaying tenderness to palpation in the left lower quadrant CT abdomen/pelvis with contrast pending Enteric feedings have been resumed Manual fecal disimpaction was performed Senokot-S 1 each PO. twice daily MiraLAX 17 g p.o. daily Continue with lactulose #Hypernatremia secondary to dehydration in the setting of poor oral intake, resolved Na on admission 153mEq/L => 146 => 141 Free water deficit of appx 4 L IV D5W to 2 D5 half-normal saline at 150 cc/HR Monitor sodium every 4 hour with goal of no more than 2 meq per 4 hours drop in Na correct Na by appr 10mEq/L in 24hr period to reach target ~140mEq/L BMP in a.m. start free water flushes through PEG 100 cc per 4 hrs #Stage II chronic nonhealing decubitus ulcer Consult wound care #Type II MO secondary to sepsis Troponin 0.059 --> 0.062 Unlikely to be ACS Continue cardiac telemetry #Hyperglycemia Serum glucose 109 Accu-Cheks and sliding scale insulin Check HbA1c Chronic conditions: Multiple sclerosis Debility: Consult PT/OT Status post PEG tube placement: Consult dietitian for for nutrition support Status post chronic indwelling catheter Home medication reconciled DVT prophylaxis: Lovenox 40 mg subcu daily GI prophylaxis: Pepcid through G-tube F: D5 1/2 NS at 150 cc/HR E: Replete that needed N: PEG tube dependent feeding; consulted dietitian for nutrition support A: Debility Code status: Unknown, unable to obtain at this time Anticipated discharge place: [facility] Anticipated discharge time: 24-48 hours I saw and evaluated the patient during the browning and critical portions of this encounter, and discussed the case in detail with the resident author of this note, I agree with the Assessment and Plan, and my changes, if any, are highlighted in blue. Objective - Vital Signs Vital signs: Vital Signs Temp 98.1 F 10/27/24 04:00 Pulse 76 10/27/24 04:00 Resp 18 10/27/24 04:00 BP 133/81 10/27/24 04:00 Pulse Ox 98 10/27/24 04:00 FiO2 Intake & Output 0110/26/24 10/27/24 06:59 18:59 06:59 Intake Total 8 Output Total 2099 72 Balance -2091 Intake: IV 8 Invasive Line 2 8 Output: Urine 2099 Other: Voiding Method Indwelling Catheter Indwelling Catheter Indwelling Catheter # Bowel Movements 1 - Labs CBC & Chem 7: 10/27/24 06:08 10/27/24 06:08 Labs: Abnormal Lab Results - Last 24 Hours (Table) 10/26/24 10/26/24 10/26/24 Range/Units 07:12 08:39 11:04 Lymphocytes # 0.7 L (1.0-4.8) k/uL Chloride 109 H (98-107) mmol/L Creatinine 0.63 L (0.66-1.25) mg/dL Glucose (74-99) mg/dL POC Glucose (mg/dL) 112 H (70-110) mg/dL Calcium 7.9 L (8.4-10.2) mg/dL Total Protein 6.0 L (6.3-8.2) g/dL Albumin 2.9 L (3.5-5.0) g/dL 10/26/24 10/27/24 10/27/24 Range/Units 23:59 05:57 06:08 Lymphocytes # 0.9 L (1.0-4.8) k/uL Chloride (98-107) mmol/L Creatinine (0.66-1.25) mg/dL Glucose (74-99) mg/dL POC Glucose (mg/dL) 123 H 118 H (70-110) mg/dL Calcium (8.4-10.2) mg/dL Total Protein (6.3-8.2) g/dL Albumin (3.5-5.0) g/dL 10/27/24 Range/Units 06:08 Lymphocytes # (1.0-4.8) k/uL Chloride 108 H (98-107) mmol/L Creatinine 0.64 L (0.66-1.25) mg/dL Glucose 132 H (74-99) mg/dL POC Glucose (mg/dL) (70-110) mg/dL Calcium 8.3 L (8.4-10.2) mg/dL Total Protein 5.8 L (6.3-8.2) g/dL Albumin 2.9 L (3.5-5.0) g/dL Microbiology - Last 24 Hours (Table) 10/23/24 18:10 Blood Culture - Preliminary Blood 10/25/24 06:10 Gram Stain - Preliminary Sputum Sputum Culture - Preliminary 10/23/24 17:52 Urine Culture - Final Urine,Voided Enterococcus faecalis
[2024-10-27 17:44] LABS: Glucose,Whole Blood 77 mg/dL (70-110)
[2024-10-27] MEDS: polyethylene glycoL 3350 17 GM POWD.PACK PEG/G-TUBE SCH (17:59)
--- NOTE | 2024-10-27 20:24 | XR ---
EXAMINATION TYPE: XR chest 1V portable DATE OF EXAM: 10/27/2024 8:12 PM COMPARISON: Chest radiographs from 10/24/2024. CLINICAL INDICATION: Male, 64 years old with history of pneumonia, shortness of breath; TECHNIQUE: XR chest 1V portable Frontal view of the chest. FINDINGS: Lungs/Pleura: Prominent interstitial lung markings are seen scattered throughout the lungs. No eviden ce of focal consolidation, pneumothorax or pleural effusion. Pulmonary vascularity: Unremarkable. Heart/mediastinum: Cardiomediastinal silhouette is unremarkable. Musculoskeletal: No acute osseous pathology. IMPRESSION: Chronic changes without acute pulmonary process. No significant change from prior. [facility], , 10/27/2024 8:22 PM
[2024-10-27] MEDS: SENNOSIDES 8.6 MG TAB PEG/G-TUBE SCH (20:38)
[2024-10-27] MEDS: FUROSEMIDE 10 MG/ML 2 ML VIAL IV ONE (20:38)
[2024-10-27 23:47] LABS: Glucose,Whole Blood 80 mg/dL (70-110)
[2024-10-28 05:51] LABS: Glucose,Whole Blood 116 mg/dL (70-110)
[2024-10-28 10:59] LABS: Basophils % (A) 1 %; Eosinophils # (A) 0.5 k/uL (0-0.7); Eosinophils % (A) 9 %; HCT 49.4 % (39.0-53.0); HGB 16.1 gm/dL (13.0-17.5); Lymphocytes # (A) 0.8 k/uL (1.0-4.8); Lymphocytes % (A) 12 %; MCH 29.6 pg (25.0-35.0); MCHC 32.5 g/dL (31.0-37.0); MCV 91.1 fL (80.0-100.0); Monocytes # (A) 0.5 k/uL (0-1.0); Monocytes % (A) 8 %; Neutrophils % (A) 67 %; Platelet Count 225 k/uL (150-450); RBC 5.43 m/uL (4.30-5.90); RDW 15.2 % (11.5-15.5)
[2024-10-28 11:14] LABS: ALT 24 U/L (4-49); AST 22 U/L (17-59); African American GFR (CKD) >90 (>60 ml/min/1.73 sqM); Albumin 3.6 g/dL (3.5-5.0); Alkaline Phosphatase 113 U/L (38-126); Anion Gap 8 mmol/L; Blood Urea Nitrogen 18 mg/dL (9-20); Carbon Dioxide 28 mmol/L (22-30); Chloride 104 mmol/L (98-107); Glucose 98 mg/dL (74-99); Magnesium 2.1 mg/dL (1.6-2.3); Non-African American GFR(CKD) >90 (>60 ml/min/1.73 sqM); Potassium 4.3 mmol/L (3.5-5.1); Sodium 140 mmol/L (137-145); Total Bilirubin 0.4 mg/dL (0.2-1.3); Total Protein 6.9 g/dL (6.3-8.2)
[2024-10-28 11:24] LABS: Glucose,Whole Blood 90 mg/dL (70-110)
--- NOTE | 2024-10-28 13:30 | P.PN ---
Subjective Progress Note Date: 10/27/24 Principal diagnosis: Reason for follow-up is pneumonia Patient is a 64-year-old male with a past medical history significant for gastroesophageal reflux disease seizure disorder MS in this patient who is bedbound residential resident and did have multiple admission to the hospital for UTI and pneumonia has been sent to the hospital for evaluation of fever patient also noticed to be somewhat more lethargic, patient did have a negative UA chest x-ray concerning for possible right lobar pneumonia prompting this consultation. On today's evaluation that is 10/27/2024, patient has been afebrile, patient is breathing comfortably and is currently on 2 L current oxygen patient does not seem to be any distressed no vomiting diarrhea or any other changes reported by the nursing staff. Patient white count 6.8, creatinine 0.64 sputum cultures so far pending blood cultures pending Objective - Vital Signs Vital signs: Vital Signs Temp 99.4 F 10/27/24 15:47 Pulse 79 10/27/24 15:47 Resp 18 10/27/24 15:47 BP 153/73 10/27/24 15:47 Pulse Ox 96 10/27/24 15:47 FiO2 Intake & Output 10/26/24 10/27/24 10/27/24 18:59 06:59 18:59 Intake Total 8 Output Total 2100 725 800 Balance -2 -725 -800 Weight 75.5 kg Intake: IV 8 Invasive Line 2 8 Output: Urine 2100 725 800 Other: Voiding Method Indwelling Catheter Indwelling Catheter Indwelling Catheter # Bowel Movements 1 1 - Exam GENERAL DESCRIPTION: An elderly male lying in bed in no distress RESPIRATORY SYSTEM: Unlabored breathing , coarse breath sounds bilaterally HEART: S1 S2 regular rate and rhythm , ABDOMEN: Soft , no tenderness EXTREMITIES: No edema feet - Labs CBC & Chem 7: 10/28/24 10:30 10/28/24 10:30 Labs: Abnormal Lab Results - Last 24 Hours (Table) 10/26/24 10/27/24 10/27/24 Range/Units 23:59 05:57 06:08 Lymphocytes # 0.9 L (1.0-4.8) k/uL Chloride (98-107) mmol/L Creatinine (0.66-1.25) mg/dL Glucose (74-99) mg/dL POC Glucose (mg/dL) 123 H 118 H (70-110) mg/dL Calcium (8.4-10.2) mg/dL Total Protein (6.3-8.2) g/dL Albumin (3.5-5.0) g/dL 10/27/24 10/27/24 Range/Units 06:08 11:17 Lymphocytes # (1.0-4.8) k/uL Chloride 108 H (98-107) mmol/L Creatinine 0.64 L (0.66-1.25) mg/dL Glucose 132 H (74-99) mg/dL POC Glucose (mg/dL) 122 H (70-110) mg/dL Calcium 8.3 L (8.4-10.2) mg/dL Total Protein 5.8 L (6.3-8.2) g/dL Albumin 2.9 L (3.5-5.0) g/dL Microbiology - Last 24 Hours (Table) 10/25/24 06:10 Gram Stain - Final Sputum Sputum Culture - Final 10/23/24 18:10 Blood Culture - Preliminary Blood 10/23/24 17:52 Urine Culture - Final Urine,Voided Enterococcus faecalis Assessment and Plan (1) Pneumonia Current Visit: Yes Status: Acute Code(s): J18.9 - PNEUMONIA, UNSPECIFIED ORGANISM SNOMED Code(s): 708126333 (2) Sepsis Current Visit: Yes Status: Acute Code(s): A41.9 - SEPSIS, UNSPECIFIED ORGANISM SNOMED Code(s): 55706404 (3) Allergy to multiple antibiotics Current Visit: No Status: Acute Code(s): Z88.1 - ALLERGY STATUS TO OTHER ANTIBIOTIC AGENTS SNOMED Code(s): 543150462 Plan: 1patient is in the hospital with sepsis in this patient who did have tachycardia elevated white count meeting criteria for SIRS/sepsis source likely right lower lobe pneumonia concerning for possible gram-negative as no other obvious focus of infection in this patient UA has been negative abdomen is soft no evidence of any cellulitis or joint swelling 2-patient with multiple antibiotic ALLERGIES that would limit the number of antibiotic safe to use 3-patient blood, sputum Gram stain culture currently pending, MRSA nasal screen came back negative urine grew Enterococcus no UA was negative 4-patient did have resolution of his fever white normalized, we will continue with the cefepime while waiting for the culture to finalize Dictation was produced using dragon dictation software. please excuse any grammatical, word or spelling errors.
--- NOTE | 2024-10-28 13:33 | P.PN ---
Subjective Progress Note Date: 10/28/24 Principal diagnosis: Reason for follow-up is pneumonia Patient is a 64-year-old male with a past medical history significant for gastroesophageal reflux disease seizure disorder MS in this patient who is bedbound intermediate resident and did have multiple admission to the hospital for UTI and pneumonia has been sent to the hospital for evaluation of fever patient also noticed to be somewhat more lethargic, patient did have a negative UA chest x-ray concerning for possible right lobar pneumonia prompting this consultation. On today's evaluation that is 10/28/2024, Patient is afebrile this morning patient is breathing comfortably is currently on 2 L nasal cannula oxygen no respiratory distress vomiting diarrhea any changes reported by nursing staff patient cannot provide any history. Patient white count 6.0, creatinine 0.65 Objective - Vital Signs Vital signs: Vital Signs Temp 98.3 F 10/28/24 03:47 Pulse 88 10/28/24 12:04 Resp 18 10/28/24 12:00 BP 155/94 10/28/24 12:00 Pulse Ox 100 10/28/24 12:00 FiO2 Intake & Output 10/27/24 10/28/24 10/28/24 18:59 06:59 18:59 Output Total 800 1950 300 Balance -800 -1950 -300 Weight 75.5 kg Output: Urine 800 1950 300 Other: Voiding Method Indwelling Catheter Indwelling Catheter Indwelling Catheter # Bowel Movements 1 1 1 - Exam GENERAL DESCRIPTION: An elderly male lying in bed in no distress RESPIRATORY SYSTEM: Unlabored breathing , coarse breath sounds bilaterally HEART: S1 S2 regular rate and rhythm , ABDOMEN: Soft , no tenderness EXTREMITIES: No edema feet - Labs CBC & Chem 7: 10/28/24 10:30 10/28/24 10:30 Labs: Abnormal Lab Results - Last 24 Hours (Table) 10/28/24 10/28/24 10/28/24 Range/Units 05:49 10:30 10:30 Lymphocytes # 0.8 L (1.0-4.8) k/uL Creatinine 0.65 L (0.66-1.25) mg/dL POC Glucose (mg/dL) 116 H (70-110) mg/dL Microbiology - Last 24 Hours (Table) 10/25/24 06:10 Gram Stain - Final Sputum Sputum Culture - Final Assessment and Plan (1) Pneumonia Current Visit: Yes Status: Acute Code(s): J18.9 - PNEUMONIA, UNSPECIFIED ORGANISM SNOMED Code(s): 005624360 (2) Sepsis Current Visit: Yes Status: Acute Code(s): A41.9 - SEPSIS, UNSPECIFIED ORGANISM SNOMED Code(s): 00050001 (3) Allergy to multiple antibiotics Current Visit: No Status: Acute Code(s): Z88.1 - ALLERGY STATUS TO OTHER ANTIBIOTIC AGENTS SNOMED Code(s): 329615418 Plan: 1patient is in the hospital with sepsis in this patient who did have tachycardia elevated white count meeting criteria for SIRS/sepsis source likely right lower lobe pneumonia concerning for possible gram-negative as no other obvious focus of infection in this patient UA has been negative abdomen is soft no evidence of any cellulitis or joint swelling 2-patient with multiple antibiotic ALLERGIES that would limit the number of antibiotic safe to use 3-patient blood, sputum Gram stain culture so far negative, MRSA nasal screen came back negative urine grew Enterococcus no UA was negative 4-patient did have resolution of his fever white normalized, has received a 5- day course of cefepime antibiotic has been discontinued by admitting team should be enough for a community acquired pneumonia as we did not grow any resistant pathogen in the blood and sputum Dictation was produced using [employer] dictation software. please excuse any grammatical, word or spelling errors. Time with Patient: Less than 30
--- NOTE | 2024-10-28 14:28 | P.DS ---
Providers Date of admission: 10/23/24 20:45 Discharge Diagnosis: Acute toxic metabolic encephalopathy secondary to sepsis and acute hypernatremia Sepsis secondary to community-acquired pneumonia Acute acute hypoxemic respiratory failure Abdominal pain Constipation Hyponatremia secondary to be dehydrated in the setting of poor oral intake Stage II chronic nonhealing decubitus ulcer Type II NSTEMI secondary to sepsis Hyperglycemia Multiple sclerosis Debility Status post PEG tube placement Status post chronic indwelling catheter Hospital course: Patient is a 64-year-old male with a history of multiple sclerosis, functional quadriplegia, chronic Stein catheter placement, recurrent catheter associated UTI, seizure disorder, debility, bedbound, chronic unhealing ulcer, PEG tube dependent came in from medical [facility] via EMS with concerns for altered mental status. Patient was noted to have high fever at the facility. Patient is nonverbal and is unable to provide any useful history. History acquired from EMS chart, EMR and RN. Patient was recently hospitalized for altered mental status secondary to urosepsis. Initial lab evaluation in the ED shows WBC 16.3, hemoglobin 16.4, MCV 91.5, sodium 153, potassium 3.8, chloride 117, bicarb 23, BUN 13, creatinine 0.80, glucose 109, troponin I 0.059. Vitals on arrival 98.8 F, pulse rate 101 respiratory rate 16, blood pressure 123/77, oxygen saturation 98% with 2 L nasal cannula Chest x-ray interpreted independently shows concerns for pneumonia in the right lower lung field EKG interpreted in ER apparently shows sinus tachycardia with frequent ventricular premature complexes in a bigeminal pattern. CO interval 142 ms, QRS duration 100 ms, QTc 348 ms. Urinalysis shows mild proteinuria, negative nitrite, negative leukocyte esterase, normal WBC Viral serology negative for influenza type A and B, RSV and COVID-19 Patient was admitted to internal medicine floor for further workup on sepsis and acute hypoxemic respiratory failure. Infectious disease were consulted. Patient was placed on proper antibiotics and fluid management for his sepsis and hypernatremia. MRSA/MSSA nares were negative. Blood cultures showed no growth. Patient had positive UA, urine culture showing Enterococcus facialis. Patient had distended abdomen and was not having a bowel movement for over 3 days. Abdominal series x-ray showing gas in the bowel and large stool burden. The patient was placed on appropriate bowel regiment for his constipation. Fecal disimpaction was performed as well with successful results. He is being discharged with proper bowel management regimen medications. Also being discharged on 3 L of oxygen on nasal cannula. Patient is to follow-up with PCP. He is being discharged to [facility]. Vital signs reviewed and stable. Physical examination: Vital signs reviewed General: non toxic, no distress, appears at stated age, normal weight Derm: unhealed 2 cm stage II sacral ulcer with surrounding erythema with minimal purulent discharge Head: atraumatic, normocephalic, symmetric Eyes: EOMI, anicteric sclera, pupils equal round reactive to light ENT: Nose and ears atraumatic Neck: No cervical lymphadenopathy, trachea midline, supple Mouth: no lip lesion, mucus membranes moist Cardiovascular: S1S2 reg, no murmur, positive dorsalis pedis pulse bilateral, no edema Lungs: CTA bilateral, no rhonchi, no rales, no accessory muscle use Abdominal: soft, nontender to palpation, no guarding, G-tube in place and site is clean and intact Ext: muscle strength 5 out of 5 in all 4 extremities grossly, no gross muscle atrophy Neuro: CN II-XI grossly intact, no gross focal neuro deficits Psych: Alert, oriented to person, place, and time A total of greater than 30 minutes of time were spent preparing this complex discharge summary. Patient was discharge on October 28, 2024 at 12:12. Lisette Craft MD PGY-1 IM Dictation was produced using [employer] dictation software. please excuse any grammatical, word or spelling errors. Expected date of discharge: 10/28/24 Attending physician: Jairon Wilde MD Consults: 10/24/24 15:11 Consult Physician Routine Consulting Provider: Sonal Farah Consult Reason/Comments: pneumonia Do you want consulting provider notified?: Yes 10/26/24 15:11 Consult Physician Routine Consulting Provider: Carlos Gleason Consult Reason/Comments: bony descruction of hip Do you want consulting provider notified?: Yes Primary care physician: DEANGELO NEUMANN MD Hospital Course: I saw and evaluated the patient during the browning and critical portions of this encounter, and discussed the case in detail with the resident author of this note, I agree with the Assessment and Plan, and my changes, if any, are highlighted in blue. Patient Condition at Discharge: Serious Plan - Discharge Summary Discharge Rx Participant: No New Discharge Prescriptions: New polyethylene glycoL 3350 [Miralax] 17 gm PEG/G-TUBE DAILY #30 packet Sennosides [Senokot] 8.6 mg PEG/G-TUBE BID #60 tab Continue Aspirin 81 mg PEG/G-TUBE DAILY Acetaminophen Tab [Tylenol] 650 mg PEG/G-TUBE Q4H PRN PRN Reason: Fever And/ Or Pain carBAMazepine [carBAMazepine Oral Susp] 100 mg PEG/G-TUBE TID Scopolamine [Scopolamine 1 MG/72 HR patch] 1 patch TRANSDERM Q72H Lactulose 20 gm PEG/G-TUBE TID Lacosamide [Vimpat Oral Soln] 150 mg PEG/G-TUBE BID Ipratropium-Albuterol Nebulize [Duoneb 0.5 mg-3 mg/3 ml Soln] 3 ml INHALATION RT-TID Cranberry 450mg 450 mg PEG/G-TUBE DAILY Baclofen 5 mg PEG/G-TUBE TID bisacodyL [Dulcolax] 10 mg RECTAL DAILY PRN PRN Reason: Constipation Amino Acids/Protein Hydrolys [Pro-Stat Awc Liquid] 30 ml PEG/G-TUBE BID Metoprolol Tartrate [Lopressor] 50 mg PEG/G-TUBE BID oxyBUTYnin chloride 5 mg PEG/G-TUBE DAILY Famotidine [Pepcid] 20 mg PEG/G-TUBE DAILY amantadine HCL [Amantadine] 100 mg PEG/G-TUBE DAILY Discharge Medication List Aspirin 81 mg PEG/G-TUBE DAILY 11/27/20 [History] Acetaminophen Tab [Tylenol] 650 mg PEG/G-TUBE Q4H PRN 06/13/21 [History] Metoprolol Tartrate [Lopressor] 50 mg PEG/G-TUBE BID 06/13/21 [History] carBAMazepine [carBAMazepine Oral Susp] 100 mg PEG/G-TUBE TID 07/02/21 [History] Lactulose 20 gm PEG/G-TUBE TID 01/03/22 [History] Scopolamine [Scopolamine 1 MG/72 HR patch] 1 patch TRANSDERM Q72H 01/03/22 [History] oxyBUTYnin chloride 5 mg PEG/G-TUBE DAILY 12/19/22 [History] Famotidine [Pepcid] 20 mg PEG/G-TUBE DAILY 07/14/23 [History] Ipratropium-Albuterol Nebulize [Duoneb 0.5 mg-3 mg/3 ml Soln] 3 ml INHALATION RT-TID 11/18/23 [History] Lacosamide [Vimpat Oral Soln] 150 mg PEG/G-TUBE BID 11/18/23 [History] Baclofen 5 mg PEG/G-TUBE TID 07/25/24 [History] Cranberry 450mg 450 mg PEG/G-TUBE DAILY 07/25/24 [History] amantadine HCL [Amantadine] 100 mg PEG/G-TUBE DAILY 07/25/24 [History] bisacodyL [Dulcolax] 10 mg RECTAL DAILY PRN 07/25/24 [History] Amino Acids/Protein Hydrolys [Pro-Stat Awc Liquid] 30 ml PEG/G-TUBE BID 10/23/24 [History] Sennosides [Senokot] 8.6 mg PEG/G-TUBE BID #60 tab 10/28/24 [Rx] polyethylene glycoL 3350 [Miralax] 17 gm PEG/G-TUBE DAILY #30 packet 10/28/24 [Rx] Follow up Appointment(s)/Referral(s): DEANGELO NEUMANN MD [Primary Care Provider] - 1-2 days Discharge [facility]
[2024-10-28 16:36] LABS: Glucose,Whole Blood 108 mg/dL (70-110)
[2024-10-28 20:01] VITALS: BP 146/75; PULSE 80; RESP 19; TEMP 98.4
== END 2024-10-28 21:30 | DRG 871 ==
LOC: EC 17:28 → 3SCARD 20:45
PROVIDERS: ADMIT Internal Medicine; ATTEND Internal Medicine
DX: A41.9 Sepsis, unspecified organism (principal); G92.8 Other toxic encephalopathy; J18.9 Pneumonia, unspecified organism; J96.01 Acute respiratory failure with hypoxia; I21.A1 Myocardial infarction type 2; R53.2 Functional quadriplegia; E87.0 Hyperosmolality and hypernatremia; L89.152 Pressure ulcer of sacral region, stage 2; I10 Essential (primary) hypertension; G35 Multiple sclerosis; G40.909 Epilepsy, unspecified, not intractable, without status epilepticus; E87.1 Hypo-osmolality and hyponatremia; S72.012 Unspecified intracapsular fracture of left femur; R65.20 Severe sepsis without septic shock; K59.00 Constipation, unspecified; E86.0 Dehydration; R73.9 Hyperglycemia, unspecified; R53.81 Other malaise; N31.9 Neuromuscular dysfunction of bladder, unspecified; R80.9 Proteinuria, unspecified; Z93.1 Gastrostomy status; Z79.82 Long term (current) use of aspirin; Z88.8 Allergy status to other drugs, medicaments and biological substances; Z88.9 Allergy status to unspecified drugs, medicaments and biological substances; Z88.1 Allergy status to other antibiotic agents; Z74.01 Bed confinement status; Z86.718 Personal history of other venous thrombosis and embolism
CPT/HCPCS: 36415; 71045; 74022; 74177; 80048; 80053; 80202; 81001; 82565; 83036; 83605; 83735; 84145; 84295; 84484; 85025; 85610; 85730; 87040; 87070; 87077; 87086; 87186; 87205; 87449; 87636; 93005; 94640; 94760; 96360; 96361; 99291

== ENCOUNTER 2024-11-23 15:08 | Inpatient (IN) | payer MEDICARE, OTHER ==
--- NOTE | 2024-11-23 16:09 | ED ---
General Adult HPI - General Chief complaint: Shortness of Breath Stated complaint: fever Time Seen by Provider: 11/23/24 15:38 Source: EMS Mode of arrival: EMS Limitations: altered mental status, physical limitation - History of Present Illness Initial comments: Patient is a 64-year-old male past medical history of multiple sclerosis, paraplegia, indwelling Stein catheter, G-tube presenting today for fever. History is limited as patient is unable to provide history. Per report from patient's assisted living facility, the [facility] influenza is going around their facility patient had a fever today of 100.3 degrees. He was given Tylenol at 12:30 PM. And had an albuterol at 1230. Patient reportedly had wet lung sounds at assisted living facility. Gets frequent UTIs and pneumonia. - Related Data Home Medications Medication Instructions Recorded Confirmed Aspirin 81 mg PEG/G-TUBE DAILY 11/27/20 11/23/24 Acetaminophen Tab [Tylenol] 650 mg PEG/G-TUBE Q4H PRN 06/13/21 11/23/24 Metoprolol Tartrate [Lopressor] 50 mg PEG/G-TUBE BID 06/13/21 11/23/24 carBAMazepine [carBAMazepine Oral 100 mg PEG/G-TUBE TID 07/02/21 11/23/24 Susp] Lactulose 20 gm PEG/G-TUBE TID 01/03/22 11/23/24 Scopolamine [Scopolamine 1 MG/72 1 patch TRANSDERM Q72H 01/03/22 11/23/24 HR patch] oxyBUTYnin chloride 5 mg PEG/G-TUBE DAILY 12/19/22 11/23/24 Famotidine [Pepcid] 20 mg PEG/G-TUBE DAILY 07/14/23 11/23/24 Ipratropium-Albuterol Nebulize 3 ml INHALATION RT-TID 11/18/23 11/23/24 [Duoneb 0.5 mg-3 mg/3 ml Soln] Lacosamide [Vimpat Oral Soln] 150 mg PEG/G-TUBE BID 11/18/23 11/23/24 Baclofen 5 mg PEG/G-TUBE TID 07/25/24 11/23/24 Cranberry 450mg 450 mg PEG/G-TUBE DAILY 07/25/24 11/23/24 amantadine HCL [Amantadine] 100 mg PEG/G-TUBE DAILY 07/25/24 11/23/24 bisacodyL [Dulcolax] 10 mg RECTAL DAILY PRN 07/25/24 11/23/24 Amino Acids/Protein Hydrolys 30 ml PEG/G-TUBE BID 10/23/24 11/23/24 [Pro-Stat Awc Liquid] Previous Rx's Medication Instructions Recorded Sennosides [Senokot] 8.6 mg PEG/G-TUBE BID #60 tab 10/28/24 polyethylene glycoL 3350 [Miralax] 17 gm PEG/G-TUBE DAILY #30 packet 10/28/24 Allergies Allergy/AdvReac Type Severity Reaction Status Date / Time meropenem [From Merrem] Allergy Rash/Hives Verified 11/23/24 18:34 ceftolozane [From Zerbaxa] AdvReac Rapid Verified 11/23/24 18:34 Heart Rate tazobactam [From Zerbaxa] AdvReac Rapid Verified 11/23/24 18:34 Heart Rate Review of Systems ROS Statement: Those systems with pertinent positive or pertinent negative responses have been documented in the HPI. Limitations: ROS unobtainable due to patients medical condition Past Medical History Past Medical History: Deep Vein Thrombosis (DVT), GERD/Reflux, Hypertension, Musculoskeletal Disorder, Neurologic Disorder, Pneumonia, Seizure Disorder, Skin Disorder Additional Past Medical History / Comment(s): Pt diagnosed with MS at the age of 39 yrs, seizure/pneumonia/UTI with sepsis/respirtory failure/vented, cognitive impairment, sister states when he is feeling well he could speak a few words/nod head appropriately/give thumbs up/roll eyes but when ill is nonverbal, pt has dysphagia/NPO with peg tube, contractures, last seizure 07/2020, trigeminal neuralgia, dysarthria/anarthria/neurogenic bladder with IDC-UTIs/sepsis, multiple pneumonias, recent seizure-last one 07/03/20, incontinent of stool, pt has had decubitus ulcer coccyx-sister unsure of skin condition at this time, past anemia r/t heparin/epistaxiis which involved nasal packing/transfusions, DVT bilateral arms, hypoxia, oxygen at 2L/NC, L femoral head fracture History of Any Multi-Drug Resistant Organisms: ESBL, MRSA, Other MDRO Date of last positivie culture/infection: 03/09/21-MRSA; 11/23/19 ESBL-E.coli MDRO Source:: Abdomen-Peg site MRSA; Urine -ESBL Past Surgical History: Tonsillectomy Additional Past Surgical History / Comment(s): Gastrostomy, peg tube, I&D coccyx decubitius, bronchoscopy, bilateral lasik eye surgery. Past Anesthesia/Blood Transfusion Reactions: No Reported Reaction Additional Past Anesthesia/Blood Transfusion Reaction / Comment(s): Pt has received blood in past without reaction. Past Psychological History: Depression Smoking Status: Never smoker Past Alcohol Use History: None Reported Past Drug Use History: None Reported - Past Family History Father Family Medical History: Myocardial Infarction (HI) Mother Family Medical History: Hypertension, Myocardial Infarction (HI) Additional Family Medical History / Comment(s): Mother of a HI at the age of 73 yrs. General Exam - General Exam Comments Initial Comments: PE: CONSTITUTIONAL: Ill-appearing, alert SKIN: [warm, dry, no jaundice, hives or petechiae] EYES:[ pupils are equally round, extraocular movements intact without nystagmus, clear conjunctiva, non-icteric sclera] HENT: [normocephalic, atraumatic, dry mucus membranes, oropharynx clear without exudates] NECK: , [Full range of motion, normal appearance] PULMONARY: limited by transmitted upper airway sounds, secretions, bilateral coarse breath sounds, without rales or wheezes, no stridor, mild tachypnea, no accessory muscle ] CARDIOVASCULAR:[ regular rate, rhythm, normal S1 and S2. No appreciated murmurs, rubs or gallops. Strong radial pulses with intact distal perfusion. No lower extremity edema] GASTROINTESTINAL: [soft, active bowel sounds throughout, no guarding, mildly distended, no palpable masses, no rebound or guarding. No hepatosplenomegaly] MUSCULOSKELETAL: [Extremities have no signs of injury, however chronic muscle contractures noted throughout ] NEUROLOGIC: [_Awake, eyes open, nonverbal, does not appear to follow commands, spontaneous eye movements, no facial droop] PSYCHIATRIC:[ _calm, otherwsie unable to assess] Limitations: altered mental status, physical limitation Course Vital Signs 11/23/24 11/23/24 11/23/24 15:14 16:30 18:29 Temperature 99.2 F 100.1 F H Pulse Rate 59 L 115 H 118 H Respiratory 34 H 28 H 32 H Rate Blood Pressure 158/82 124/87 187/79 O2 Sat by Pulse 93 L 93 L 94 L Oximetry 11/23/24 11/23/24 11/23/24 19:12 19:16 20:56 Temperature 98.3 F Pulse Rate 116 H 116 H 117 H Respiratory 32 H Rate Blood Pressure 155/107 O2 Sat by Pulse 95 Oximetry 11/23/24 11/23/24 11/24/24 21:30 23:00 00:30 Temperature Pulse Rate 123 H 92 99 Respiratory 30 H 24 18 Rate Blood Pressure 134/92 139/79 137/78 O2 Sat by Pulse 93 L 95 95 Oximetry 11/24/24 11/24/24 11/24/24 04:00 06:47 08:06 Temperature 98.5 F 98.5 F Pulse Rate 103 H 91 88 Respiratory 20 18 20 Rate Blood Pressure 157/86 160/102 160/102 O2 Sat by Pulse 95 95 96 Oximetry 11/24/24 09:41 Temperature Pulse Rate 79 Respiratory 16 Rate Blood Pressure 104/86 O2 Sat by Pulse 96 Oximetry EKG Findings - EKG Comments: EKG Findings:: Sinus tachycardia with frequent PVCs, significant artifact present as patient have difficulty lying still, rate 118 bpm [place] interval 144 ms QT/QTc 292/362 ms, borderline left axis deviation, no clear ST elevations or depressions No STEMI Medical Decision Making - Medical Decision Making Was pt. sent in by a medical professional or institution (, PA, [facility] [facility], urgent care, hospital, or long term...) When possible be specific @ -Patient was sent in from the [facility] Did you speak to anyone other than the patient for history (EMS, parent, family, police, friend...)? What history was obtained from this source @ -No Did you review nursing and triage notes (agree or disagree)? Why? @ -I reviewed nursing and triage notes Were old charts reviewed (outside hosp., previous admission, EMS record, old EKG, old radiological studies, urgent care reports/EKG's, long term records)? Report findings @ -Medical records reviewed reviewed discharge summary from recent admissionAppears patient was recently admitted for altered mental status, diagnosed with hypernatremia, sepsis secondary to immunity acquired pneumonia during that admission, additionally reviewed infectious disease consult given patient's multiple allergies, patient was given cefepime at that time. Differential Diagnosis (chest pain, altered mental status, abdominal pain women, abdominal pain men, vaginal bleeding, weakness, fever, dyspnea, syncope, he adache, dizziness, GI bleed, back pain, seizure, CVA, palpatations, mental health, musculoskeletal)? Differential Fever: Pneumonia, viral URI, endocarditis, myocarditis, pericarditis, peritonitis, ap pendicitis, Maris cystitis, diverticulitis, hepatitis, colitis, UTI,pyelonephritis, prostatitis, epididymitis, thyroid storm, pancreatitis, this is not meant to be an all-inclusive list. EKG interpreted by me (3pts min.). @ -As above X-rays interpreted by me (1pt min.). @I personally viewed chest x-ray, appears to show cardiomegaly and signs of pulmonary edema versus atelectasis, I agree with radiologist interpretation CT interpreted by me (1pt min.). @ -None done U/S interpreted by me (1pt. min.). @ -None done What testing was considered but not performed or refused? (CT, X-rays, U/S, lab s)? Why? @ -None What meds were considered but not given or refused? Why? @ -None Did you discuss the management of the patient with other professionals (professionals i.e. , PA, [employer], lab, RT, psych nurse, social services director, pattern duplicator, teacher, search and rescue officer, residential case manager)? Give summary @ -No Was smoking cessation discussed for >3mins.? @ -No Was critical care preformed (if so, how long)? @Yes 35 minutes Were there social determinants of health that impacted care today? How? (Homelessness, low income, unemployed, alcoholism, drug addiction, transportation, low edu. Level, literacy, decrease access to med. care, fdc, rehab)? @ -No Was there de-escalation of care discussed even if they declined (Discuss DNR or withdrawal of care, Hospice)? @ -No What co-morbidities impacted this encounter? (DM, HTN, Smoking, COPD, CAD, Cancer, CVA, ARF, Chemo, Hep., AIDS, mental health diagnosis, sleep apnea, morbid obesity)? @Paraplegia, MS, G-tube dependent Was patient admitted / discharged? Hospital course, mention meds given and route, prescriptions, significant lab abnormalities, going to OR and other pertinent info. @[id number]-old male with complex medical history presenting from assisted living facility today for fever. Influenza going around the facility where he resides, reportedly. Patient ill-appearing, tachycardic on my assessment, on home 3 L oxygen nasal cannula. Patient does have "wet sounding" breath sounds and rhonchi, though difficult to differentiate from transmitted upper airway sound. Urine appears infected as well. Plan for sepsis workup, patient will be not not given 30 cc/kg bolus at this time as blood pressures within acceptable limits and do not want to fluid overload the patient. Cefepime ordered for broad-spectrum antibiotics. Labs significant for hypernatremia sodium 154, mild leukocytosis white blood cell count 15.1, troponin is elevated at 0.087, slightly elevated from prior, no signs of STEMI on EKG I suspect this is secondary demand ischemia. Paged nephrology for further recommendations on treatment of patient's hypernatremia, further fluid boluses will be withheld until discussed w/ nephrology. On reassessment pt now febrile, tylenol ordered, pt in no distress though still sounds to have some upper airway secretions. Is protecting airway. Ordered nebulized saline to help break up secretions. Case discussed with maliha Muir, kindly accepts patient for admission Awaiting response from nephrology, per chart review when patient had presented for hypernatremia previously, was started on D5 water 100 cc an hour. Will order this until nephrology can be reached. Undiagnosed new problem with uncertain prognosis? @ -No Drug Therapy requiring intensive monitoring for toxicity (Heparin, Nitro, Insulin, Cardizem)? @ -No Were any procedures done? @ -No Diagnosis/symptom? Sepsis 2/2 UTI, hypernatremia Acute, or Chronic, or Acute on Chronic? acute Uncomplicated (without systemic symptoms) or Complicated (systemic symptoms)? @ complicated Side effects of treatment? @ -No Exacerbation, Progression, or Severe Exacerbation? @ -No Poses a threat to life or bodily function? How? (Chest pain, USA, HI, pneumonia, PE, COPD, DKA, ARF, appy, cholecystitis, CVA, Diverticulitis, Homicidal, Suicidal, threat to staff... and all critical care pts) @Yes, could lead to septic shock and - Lab Data Result diagrams: 11/23/24 16:14 11/24/24 07:02 Lab Results 11/23/24 11/23/24 11/23/24 Range/Units 16:07 16:14 16:14 WBC 15.1 H (3.8-10.6) k/uL RBC 6.00 H (4.30-5.90) m/uL Hgb 17.2 (13.0-17.5) gm/dL Hct 54.7 H (39.0-53.0) % MCV 91.3 (80.0-100.0) fL MCH 28.7 (25.0-35.0) pg MCHC 31.4 (31.0-37.0) g/dL RDW 15.1 (11.5-15.5) % Plt Count 276 (150-450) k/uL MPV 9.1 Neutrophils % 87 % Lymphocytes % 5 % Monocytes % 6 % Eosinophils % 1 % Basophils % 0 % Neutrophils # 13.1 H (1.3-7.7) k/uL Lymphocytes # 0.8 L (1.0-4.8) k/uL Monocytes # 0.8 (0-1.0) k/uL Eosinophils # 0.2 (0-0.7) k/uL Basophils # 0.0 (0-0.2) k/uL Hypochromasia Slight PT 12.1 (10.0-12.5) sec INR 1.1 (<1.2) APTT 23.8 (22.0-30.0) sec Sodium (137-145) mmol/L Potassium (3.5-5.1) mmol/L Chloride (98-107) mmol/L Carbon Dioxide (22-30) mmol/L Anion Gap mmol/L BUN (9-20) mg/dL Creatinine (0.66-1.25) mg/dL Est GFR (CKD-EPI)AfAm (>60 ml/min/1.73 sqM) Est GFR (CKD-EPI)NonAf (>60 ml/min/1.73 sqM) Glucose (74-99) mg/dL Plasma Lactic Acid Taurus (0.7-2.0) mmol/L Calcium (8.4-10.2) mg/dL Total Bilirubin (0.2-1.3) mg/dL AST (17-59) U/L ALT (4-49) U/L Alkaline Phosphatase (38-126) U/L Troponin I (0.000-0.034) ng/mL Total Protein (6.3-8.2) g/dL Albumin (3.5-5.0) g/dL Urine Color Urine Appearance (Clear) Urine pH (5.0-8.0) Ur Specific [place] (1.001-1.035) Urine Protein (Negative) Urine Glucose (UA) (Negative) Urine Ketones (Negative) Urine Blood (Negative) Urine Nitrite (Negative) Urine Bilirubin (Negative) Urine Urobilinogen (<2.0) mg/dL Ur Leukocyte Esterase (Negative) Urine RBC (0-5) /hpf Urine WBC (0-5) /hpf Triple Phos Crystals (None) /hpf Urine Bacteria (None) /hpf Urine Mucus (None) /hpf Influenza Type A (PCR) Not Detected (Not Detectd) Influenza Type B (PCR) Not Detected (Not Detectd) RSV (PCR) Not Detected (Not Detectd) SARS-CoV-2 (PCR) Not Detected (Not Detectd) 11/23/24 11/23/24 11/23/24 Range/Units 16:14 16:14 16:14 WBC (3.8-10.6) k/uL RBC (4.30-5.90) m/uL Hgb (13.0-17.5) gm/dL Hct (39.0-53.0) % MCV (80.0-100.0) fL MCH (25.0-35.0) pg MCHC (31.0-37.0) g/dL RDW (11.5-15.5) % Plt Count (150-450) k/uL MPV Neutrophils % % Lymphocytes % % Monocytes % % Eosinophils % % Basophils % % Neutrophils # (1.3-7.7) k/uL Lymphocytes # (1.0-4.8) k/uL Monocytes # (0-1.0) k/uL Eosinophils # (0-0.7) k/uL Basophils # (0-0.2) k/uL Hypochromasia PT (10.0-12.5) sec INR (<1.2) APTT (22.0-30.0) sec Sodium 154 H (137-145) mmol/L Potassium 3.9 (3.5-5.1) mmol/L Chloride 118 H (98-107) mmol/L Carbon Dioxide 21 L (22-30) mmol/L Anion Gap 15 mmol/L BUN 34 H (9-20) mg/dL Creatinine 0.89 (0.66-1.25) mg/dL Est GFR (CKD-EPI)AfAm >90 (>60 ml/min/1.73 sqM) Est GFR (CKD-EPI)NonAf >90 (>60 ml/min/1.73 sqM) Glucose 123 H (74-99) mg/dL Plasma Lactic Acid Taurus 1.4 (0.7-2.0) mmol/L Calcium 9.1 (8.4-10.2) mg/dL Total Bilirubin 0.6 (0.2-1.3) mg/dL AST 31 (17-59) U/L ALT 50 H (4-49) U/L Alkaline Phosphatase 108 (38-126) U/L Troponin I 0.087 H* (0.000-0.034) ng/mL Total Protein 7.7 (6.3-8.2) g/dL Albumin 4.0 (3.5-5.0) g/dL Urine Color Urine Appearance (Clear) Urine pH (5.0-8.0) Ur Specific [place] (1.001-1.035) Urine Protein (Negative) Urine Glucose (UA) (Negative) Urine Ketones (Negative) Urine Blood (Negative) Urine Nitrite (Negative) Urine Bilirubin (Negative) Urine Urobilinogen (<2.0) mg/dL Ur Leukocyte Esterase (Negative) Urine RBC (0-5) /hpf Urine WBC (0-5) /hpf Triple Phos Crystals (None) /hpf Urine Bacteria (None) /hpf Urine Mucus (None) /hpf Influenza Type A (PCR) (Not Detectd) Influenza Type B (PCR) (Not Detectd) RSV (PCR) (Not Detectd) SARS-CoV-2 (PCR) (Not Detectd) 11/23/24 Range/Units 16:14 WBC (3.8-10.6) k/uL RBC (4.30-5.90) m/uL Hgb (13.0-17.5) gm/dL Hct (39.0-53.0) % MCV (80.0-100.0) fL MCH (25.0-35.0) pg MCHC (31.0-37.0) g/dL RDW (11.5-15.5) % Plt Count (150-450) k/uL MPV Neutrophils % % Lymphocytes % % Monocytes % % Eosinophils % % Basophils % % Neutrophils # (1.3-7.7) k/uL Lymphocytes # (1.0-4.8) k/uL Monocytes # (0-1.0) k/uL Eosinophils # (0-0.7) k/uL Basophils # (0-0.2) k/uL Hypochromasia PT (10.0-12.5) sec INR (<1.2) APTT (22.0-30.0) sec Sodium (137-145) mmol/L Potassium (3.5-5.1) mmol/L Chloride (98-107) mmol/L Carbon Dioxide (22-30) mmol/L Anion Gap mmol/L BUN (9-20) mg/dL Creatinine (0.66-1.25) mg/dL Est GFR (CKD-EPI)AfAm (>60 ml/min/1.73 sqM) Est GFR (CKD-EPI)NonAf (>60 ml/min/1.73 sqM) Glucose (74-99) mg/dL Plasma Lactic Acid Taurus (0.7-2.0) mmol/L Calcium (8.4-10.2) mg/dL Total Bilirubin (0.2-1.3) mg/dL AST (17-59) U/L ALT (4-49) U/L Alkaline Phosphatase (38-126) U/L Troponin I (0.000-0.034) ng/mL Total Protein (6.3-8.2) g/dL Albumin (3.5-5.0) g/dL Urine Color Yellow Urine Appearance Turbid (Clear) Urine pH 7.5 (5.0-8.0) Ur Specific [place] 1.027 (1.001-1.035) Urine Protein 2+ H (Negative) Urine Glucose (UA) Negative (Negative) Urine Ketones Negative (Negative) Urine Blood Small H (Negative) Urine Nitrite Negative (Negative) Urine Bilirubin Negative (Negative) Urine Urobilinogen 2.0 (<2.0) mg/dL Ur Leukocyte Esterase Large H (Negative) Urine RBC 66 H (0-5) /hpf Urine WBC 63 H (0-5) /hpf Triple Phos Crystals Many H (None) /hpf Urine Bacteria Occasional H (None) /hpf Urine Mucus Few H (None) /hpf Influenza Type A (PCR) (Not Detectd) Influenza Type B (PCR) (Not Detectd) RSV (PCR) (Not Detectd) SARS-CoV-2 (PCR) (Not Detectd) Disposition Clinical Impression: Hypernatremia, Sepsis Disposition: ADMITTED IP TO THIS HOSP Condition: Stable
[2024-11-23] MEDS: SODIUM CHLORIDE 0.9% 500 ML 500 ML IV SCH (16:14)
[2024-11-23 16:22] LABS: Basophils % (A) 0 %; Eosinophils # (A) 0.2 k/uL (0-0.7); Eosinophils % (A) 1 %; HCT 54.7 % (39.0-53.0); HGB 17.2 gm/dL (13.0-17.5); Hypochromasia Slight; Lymphocytes # (A) 0.8 k/uL (1.0-4.8); Lymphocytes % (A) 5 %; MCH 28.7 pg (25.0-35.0); MCHC 31.4 g/dL (31.0-37.0); MCV 91.3 fL (80.0-100.0); Mean Platelet Volume 9.1; Monocytes # (A) 0.8 k/uL (0-1.0); Monocytes % (A) 6 %; Neutrophils # (A) 13.1 k/uL (1.3-7.7); Neutrophils % (A) 87 %; Platelet Count 276 k/uL (150-450); RDW 15.1 % (11.5-15.5); WBC 15.1 k/uL (3.8-10.6)
[2024-11-23 16:31] LABS: ALT 50 U/L (4-49); AST 31 U/L (17-59); African American GFR (CKD) >90 (>60 ml/min/1.73 sqM); Alkaline Phosphatase 108 U/L (38-126); Anion Gap 15 mmol/L; Blood Urea Nitrogen 34 mg/dL (9-20); Calcium 9.1 mg/dL (8.4-10.2); Carbon Dioxide 21 mmol/L (22-30); Chloride 118 mmol/L (98-107); Glucose 123 mg/dL (74-99); Non-African American GFR(CKD) >90 (>60 ml/min/1.73 sqM); Potassium 3.9 mmol/L (3.5-5.1); Sodium 154 mmol/L (137-145); Total Bilirubin 0.6 mg/dL (0.2-1.3); Total Protein 7.7 g/dL (6.3-8.2)
[2024-11-23 16:34] LABS: Appearance,Urine Turbid (Clear); Bacteria,Urine Occasional /hpf; Bilirubin,Urine Negative (Negative); Blood,Urine Small (Negative); Color,Urine Yellow; Glucose,Urine (UA) Negative (Negative); Ketones,Urine Negative (Negative); Leukocyte Esterase,Urine Large (Negative); Mucus,Urine Few /hpf; Nitrite,Urine Negative (Negative); PH, Urine 7.5 (5.0-8.0); Protein,Urine 2+ (Negative); RBC,Urine 66 /hpf (0-5); Specific Gravity,Urine 1.027 (1.001-1.035); Triple Phosphate Crystal,Urine Many /hpf; WBC,Urine 63 /hpf (0-5)
[2024-11-23 16:38] LABS: INR 1.1 (<1.2); Partial Thromboplastin Time 23.8 sec (22.0-30.0); Prothrombin Time 12.1 sec (10.0-12.5)
--- NOTE | 2024-11-23 16:42 | XR ---
EXAMINATION TYPE: XR chest 2V DATE OF EXAM: 11/23/2024 4:36 PM COMPARISON: Chest radiographs from oral 4 CLINICAL INDICATION: Male, 64 years old with history of Fever; [facility] TECHNIQUE: XR chest 2V Frontal and lateral views of the chest. FINDINGS: Lungs/Pleura: Low lung volumes are present. There is no evidence of pleural effusion, focal consolida tion, or pneumothorax. Pulmonary vascularity: Unremarkable. Heart/mediastinum: Cardiomediastinal silhouette is unremarkable. Musculoskeletal: No acute osseous pathology. IMPRESSION: Low lung volumes with a generalized hazy appearance which could represent atelectasis versus pulmonar y edema correlate with serum BNP. [facility], , 11/23/2024 4:40 PM
[2024-11-23] MEDS: CEFEPIME 2 GM in SODIUM CHLORIDE 0.9% 100 ML IVPB STA (16:47)
[2024-11-23 16:56] LABS: Influenza A Not Detected (Not Detectd); Influenza B Not Detected (Not Detectd); RSV Not Detected (Not Detectd)
[2024-11-23] MEDS ORDERED: NALOXONE 0.4 MG/ML 1 ML VIAL IV PRN (18:07)
[2024-11-23] MEDS: IPRATROPIUM-ALBUTEROL 3 ML NEB INHALATION STA (19:10)
[2024-11-23] MEDS: ACETAMINOPHEN IV (For NPO) 1,000 MG in EMPTY BAG 1 BAG IVPB SCH (19:13)
[2024-11-23] MEDS: SODIUM CHLORIDE 0.9% NEBULIZ 3 ML INHALATION STA (20:08)
[2024-11-23] MEDS: DEXTROSE 5% IN WATER 1,000 ML IV ONE (21:34)
[2024-11-23] MEDS: METOPROLOL TARTRATE 50 MG TAB PEG/G-TUBE SCH (21:35)
[2024-11-23] MEDS: SODIUM CHLORIDE 0.9% 1,000 ML IV STA (23:54)
[2024-11-24] MEDS: SODIUM CHLORIDE 0.9% 1,000 ML IV ONE (00:05)
--- NOTE | 2024-11-24 01:18 | P.HPIM ---
History of Present Illness H&P Date: 11/23/24 Patient is a 64-year-old male with a past medical history significant for multiple sclerosis, non-verbal at baseline, functional quadriplegia, chronic indwelling Stein catheter, recurrent catheter associated UTI, seizure disorder, PEG tube dependent presents to the emergency department today from [facility] via EMS with concerns of fever. It is reported that today he had a temperature of 100.3 F, he was given Tylenol at 12:30 PM, had albuterol at 12:30 PM, and had reportedly had wet lung sounds. Patient is unable to provide history as he is non-verbal so history obtained from ER provider, RN, ELBA. He is prone to frequent UTIs and pneumonia. He was recently admitted on 10/23/2024 for acute toxic metabolic encephalopathy secondary to sepsis and acute hypernatremia. Case discussed with the patient's RN at [facility] (MYLA Muir) who notes that the patient's baseline mental status is AAOx0 and is non-verbal and doesn't follow any directions. She also notes that the patient has been suffering from chronic constipation which she attributes to tube feeds and notes that this has been on-going for the past 1 year. Initial vitals: BP 158/82, PA 59 bpm, RR 34, 93% on 3 L nasal cannula, 100.1 F Initial labs: WBC 15.1, hemoglobin 17.2, platelets 276, sodium 154, potassium 3 .9, chloride 118, CO2 21, BUN 34, creatinine 0.89, glucose 123, troponin x 1: 0.087; urinalysis positive; Cepheid 4 Plex negative Initial EKG: Sinus tachycardia with ventricular rate 118 bpm, PA 144 ms, QTc 362 ms, no ST segment changes Initial chest x-ray: Low lung volumes with generalized hazy appearance which could represent atelectasis versus pulmonary edema ED documentation reviewed. Given DuoNeb x 1, cefepime 2 g x 1, Rocephin 1 g x 1, Ofirmev 1 g every 6 hours Review of systems: Unable to obtain. Social history: As per EMR Physical examination, limited: Vital signs reviewed General: Nontoxic, no distress, appears older than stated age Derm: Warm, dry, intact, no cyanosis Head: Atraumatic, normocephalic, symmetric Eyes: EOMI, anicteric sclera, PERRL Ears: Normal appearing, no external lesions, hearing intact Nose: Normal appearing, no external lesions Mouth: No lip lesion, mucus membranes dry, no tonsilar hypertrophy or exudate Neck: Supple, without lesions, trachea midline Cardiovascular: S1-S2 regular, no murmur, 1+ pitting edema bilateral lower extremities Lungs: Diffuse rhonchi, no rales, no accessory muscle use Abdominal: Distended, non-tender to palpation, no guarding, bowel sounds present; PEG tube in placeclean and intact Extremities: Unable to assess, radial pulses 2+ bilateral, posterior tibial pulses 1+ Neuro: Unable to asses Psych: Patient is awake, visually tracking but not following any other directions, moving all extremities spontaneously Assessment and Plan: Patient is a 64-year-old male with past medical history significant for multiple sclerosis, functional quadriplegia, chronic indwelling Stein catheter, recurrent catheter associated UTI, seizure disorder, PEG tube dependent admitted for UTI sepsis. Active #. Sepsis possibly secondary to community-acquired pneumonia vs UTI #. Acute hypoxic respiratory failure secondary to above #. Leukocytosis with neutrophilic predominance, secondary to above WBC 15.1 Chest x-ray: Low lung volumes with generalized hazy appearance Obtain procalcitonin Obtain blood and urine cultures Obtain Legionella antigen test Start cefepime 2 g every 12 hours Continue DuoNebs 4 times daily and as needed Continue to monitor vital signs Monitor CBC #. Acute complicated UTI, indwelling catheter associated Urinalysis: Positive leukocyte esterase, WBC, bacteria Continue cefepime 2 g every 12 hours Monitor urine output Monitor I's and O's F/u urine cultures #. Elevated troponin, likely secondary to sepsis Unknown if patient has chest pain Troponin x 2: 0.087, 0.100 EKG: Sinus tachycardia with ventricular rate 118 bpm, PA 144 ms, QTc 362 ms, no ST segment changes Trend troponins Continue cardiac monitoring #. Hypernatremia #. Hyperchloremia Sodium 154, chloride 118 Free water deficit approximately 5.2 L Continue with IV D5 water at 130 cc/h Nephrology consulted Monitor sodium every 4 hours with goal of decreasing sodium ~10 mEq/L in 24 hours #. Hyperglycemia, likely reactive to above Serum glucose 123 A1c 5.0 Monitor BMP for now #. Distended abdomen Obtain abd KUB Patient has a history of fecal impaction and chronic constipation Initiate stool softeners Chronic #. Multiple sclerosis Continue home medications #. Status post PEG tube Consult dietitian for nutritional support DVT prophylaxis: Lovenox 40 mg subcutaneous daily GI prophylaxis: Pepcid through G-tube The patient is admitted with an anticipated more than 2 midnight stay for ev aluation of pneumonia sepsis, catheter associated UTI, hypernatremia CODE STATUS: Full Code POA: Dot Marvin Anticipated discharge place: Pending clinical course Past Medical History Past Medical History: Deep Vein Thrombosis (DVT), GERD/Reflux, Hypertension, Musculoskeletal Disorder, Neurologic Disorder, Pneumonia, Seizure Disorder, Skin Disorder Additional Past Medical History / Comment(s): Pt diagnosed with MS at the age of 39 yrs, seizure/pneumonia/UTI with sepsis/respirtory failure/vented, cognitive impairment, sister states when he is feeling well he could speak a few words/nod head appropriately/give thumbs up/roll eyes but when ill is nonverbal, pt has dysphagia/NPO with peg tube, contractures, last seizure 07/2020, trigeminal neuralgia, dysarthria/anarthria/neurogenic bladder with IDC-UTIs/sepsis, multiple pneumonias, recent seizure-last one 07/03/20, incontinent of stool, pt has had decubitus ulcer coccyx-sister unsure of skin condition at this time, past anemia r/t heparin/epistaxiis which involved nasal packing/transfusions, DVT bilateral arms, hypoxia, oxygen at 2L/NC, L femoral head fracture History of Any Multi-Drug Resistant Organisms: ESBL, MRSA, Other MDRO Date of last positivie culture/infection: 03/09/21-MRSA; 11/23/19 ESBL-E.coli MDRO Source:: Abdomen-Peg site MRSA; Urine -ESBL Past Surgical History: Tonsillectomy Additional Past Surgical History / Comment(s): Gastrostomy, peg tube, I&D coccyx decubitius, bronchoscopy, bilateral lasik eye surgery. Past Anesthesia/Blood Transfusion Reactions: No Reported Reaction Additional Past Anesthesia/Blood Transfusion Reaction / Comment(s): Pt has received blood in past without reaction. Past Psychological History: Depression Smoking Status: Never smoker Past Alcohol Use History: None Reported Past Drug Use History: None Reported - Past Family History Father Family Medical History: Myocardial Infarction (MO) Mother Family Medical History: Hypertension, Myocardial Infarction (MO) Additional Family Medical History / Comment(s): Mother of a MO at the age of 73 yrs. Medications and Allergies Home Medications Medication Instructions Recorded Confirmed Type Aspirin 81 mg PEG/G-TUBE DAILY 11/27/20 11/23/24 History Acetaminophen Tab [Tylenol] 650 mg PEG/G-TUBE Q4H PRN 06/13/21 11/23/24 History Metoprolol Tartrate [Lopressor] 50 mg PEG/G-TUBE BID 06/13/21 11/23/24 History carBAMazepine [carBAMazepine Oral 100 mg PEG/G-TUBE TID 07/02/21 11/23/24 History Susp] Lactulose 20 gm PEG/G-TUBE TID 01/03/22 11/23/24 History Scopolamine [Scopolamine 1 MG/72 1 patch TRANSDERM Q72H 01/03/22 11/23/24 History HR patch] oxyBUTYnin chloride 5 mg PEG/G-TUBE DAILY 12/19/22 11/23/24 History Famotidine [Pepcid] 20 mg PEG/G-TUBE DAILY 07/14/23 11/23/24 History Ipratropium-Albuterol Nebulize 3 ml INHALATION RT-TID 11/18/23 11/23/24 History [Duoneb 0.5 mg-3 mg/3 ml Soln] Lacosamide [Vimpat Oral Soln] 150 mg PEG/G-TUBE BID 11/18/23 11/23/24 History Baclofen 5 mg PEG/G-TUBE TID 07/25/24 11/23/24 History Cranberry 450mg 450 mg PEG/G-TUBE DAILY 07/25/24 11/23/24 History amantadine HCL [Amantadine] 100 mg PEG/G-TUBE DAILY 07/25/24 11/23/24 History bisacodyL [Dulcolax] 10 mg RECTAL DAILY PRN 07/25/24 11/23/24 History Amino Acids/Protein Hydrolys 30 ml PEG/G-TUBE BID 10/23/24 11/23/24 History [Pro-Stat Awc Liquid] Sennosides [Senokot] 8.6 mg PEG/G-TUBE BID #60 tab 10/28/24 11/23/24 Rx polyethylene glycoL 3350 [Miralax] 17 gm PEG/G-TUBE DAILY #30 packet 10/28/24 11/23/24 Rx Allergies Allergy/AdvReac Type Severity Reaction Status Date / Time meropenem [From Merrem] Allergy Rash/Hives Verified 11/23/24 18:34 ceftolozane [From Zerbaxa] AdvReac Rapid Verified 11/23/24 18:34 Heart Rate tazobactam [From Zerbaxa] AdvReac Rapid Verified 11/23/24 18:34 Heart Rate Physical Exam Vitals: Vital Signs Temp Pulse Resp BP Pulse Ox 11/23/24 18:29 100.1 F H 118 H 32 H 187/79 94 L 11/23/24 16:30 115 H 28 H 124/87 93 L 11/23/24 15:14 99.2 F 59 L 34 H 158/82 93 L Intake and Output 11/23/24 11/23/24 11/23/24 06:59 14:59 22:59 Other: Weight 104.326 kg Results CBC & Chem 7: 11/23/24 16:14 11/23/24 16:14 Labs: Abnormal Lab Results - Last 24 Hours (Table) 11/23/24 11/23/24 11/23/24 Range/Units 16:14 16:14 16:14 WBC 15.1 H (3.8-10.6) k/uL RBC 6.00 H (4.30-5.90) m/uL Hct 54.7 H (39.0-53.0) % Neutrophils # 13.1 H (1.3-7.7) k/uL Lymphocytes # 0.8 L (1.0-4.8) k/uL Sodium 154 H (137-145) mmol/L Chloride 118 H (98-107) mmol/L Carbon Dioxide 21 L (22-30) mmol/L BUN 34 H (9-20) mg/dL Glucose 123 H (74-99) mg/dL ALT 50 H (4-49) U/L Troponin I 0.087 H* (0.000-0.034) ng/mL Urine Protein (Negative) Urine Blood (Negative) Ur Leukocyte Esterase (Negative) Urine RBC (0-5) /hpf Urine WBC (0-5) /hpf Triple Phos Crystals (None) /hpf Urine Bacteria (None) /hpf Urine Mucus (None) /hpf 02/23/25 Range/Units 16:14 WBC (3.8-10.6) k/uL RBC (4.30-5.90) m/uL Hct (39.0-53.0) % Neutrophils # (1.3-7.7) k/uL Lymphocytes # (1.0-4.8) k/uL Sodium (137-145) mmol/L Chloride (98-107) mmol/L Carbon Dioxide (22-30) mmol/L BUN (9-20) mg/dL Glucose (74-99) mg/dL ALT (4-49) U/L Troponin I (0.000-0.034) ng/mL Urine Protein 2+ H (Negative) Urine Blood Small H (Negative) Ur Leukocyte Esterase Large H (Negative) Urine RBC 66 H (0-5) /hpf Urine WBC 63 H (0-5) /hpf Triple Phos Crystals Many H (None) /hpf Urine Bacteria Occasional H (None) /hpf Urine Mucus Few H (None) /hpf
[2024-11-24 02:13] LABS: African American GFR (CKD) >90 (>60 ml/min/1.73 sqM); Anion Gap 13 mmol/L; Blood Urea Nitrogen 29 mg/dL (9-20); Calcium 8.4 mg/dL (8.4-10.2); Carbon Dioxide 20 mmol/L (22-30); Chloride 114 mmol/L (98-107); Glucose 249 mg/dL (74-99); Non-African American GFR(CKD) >90 (>60 ml/min/1.73 sqM); Sodium 147 mmol/L (137-145)
--- NOTE | 2024-11-24 05:52 | XR ---
EXAMINATION TYPE: XR KUB portable DATE OF EXAM: 11/24/2024 5:34 AM COMPARISON: CT abdomen and pelvis October 26, 2024 CLINICAL INDICATION: Male, 64 years old with history of distended abdomen, TECHNIQUE: A supine KUB images of the abdomen are obtained. FINDINGS: Gas prominent and distended colonic loops along the periphery with moderate fecal debris. Gas distend ed colonic loop in the pelvis likely sigmoid colon. Some paucity of small bowel gas. No suspicious ca lcifications. Old nonunion fracture left hip redemonstrated. IMPRESSION: Overall nonspecific bowel gas pattern. [facility], , 11/24/2024 5:49 AM
[2024-11-24] MEDS: CEFEPIME 2 GM in SODIUM CHLORIDE 0.9% 100 ML IVPB SCH (07:54)
[2024-11-24 08:11] LABS: African American GFR (CKD) >90 (>60 ml/min/1.73 sqM); Anion Gap 11 mmol/L; Blood Urea Nitrogen 29 mg/dL (9-20); Calcium 8.4 mg/dL (8.4-10.2); Carbon Dioxide 20 mmol/L (22-30); Chloride 115 mmol/L (98-107); Glucose 135 mg/dL (74-99); Non-African American GFR(CKD) >90 (>60 ml/min/1.73 sqM); Potassium 3.8 mmol/L (3.5-5.1); Sodium 146 mmol/L (137-145)
[2024-11-24] MEDS: ENOXAPARIN 40 MG/0.4 ML SYRINGE SQ SCH (09:38)
--- NOTE | 2024-11-24 13:45 | P.PN ---
Subjective Progress Note Date: 11/24/24 Objective - Vital Signs Vital signs: Vital Signs Temp 97.9 F 11/24/24 12:04 Pulse 83 11/24/24 12:04 Resp 18 11/24/24 12:04 BP 159/98 11/24/24 12:04 Pulse Ox 94 L 11/24/24 12:04 FiO2 Intake & Output 11/23/24 11/24/24 11/24/24 18:59 06:59 18:59 Weight 104.326 kg 104.326 kg - Labs CBC & Chem 7: 11/23/24 16:14 11/24/24 07:02 Labs: Abnormal Lab Results - Last 24 Hours (Table) 11/23/24 11/23/24 11/23/24 Range/Units 16:14 16:14 16:14 WBC 15.1 H (3.8-10.6) k/uL RBC 6.00 H (4.30-5.90) m/uL Hct 54.7 H (39.0-53.0) % Neutrophils # 13.1 H (1.3-7.7) k/uL Lymphocytes # 0.8 L (1.0-4.8) k/uL Sodium 154 H (137-145) mmol/L Chloride 118 H (98-107) mmol/L Carbon Dioxide 21 L (22-30) mmol/L BUN 34 H (9-20) mg/dL Glucose 123 H (74-99) mg/dL Osmolality (275-295) mOsm/kg ALT 50 H (4-49) U/L Troponin I 0.087 H* (0.000-0.034) ng/mL Urine Protein (Negative) Urine Blood (Negative) Ur Leukocyte Esterase (Negative) Urine RBC (0-5) /hpf Urine WBC (0-5) /hpf Triple Phos Crystals (None) /hpf Urine Bacteria (None) /hpf Urine Mucus (None) /hpf 11/23/24 11/23/24 11/23/24 Range/Units 16:14 18:16 19:55 WBC (3.8-10.6) k/uL RBC (4.30-5.90) m/uL Hct (39.0-53.0) % Neutrophils # (1.3-7.7) k/uL Lymphocytes # (1.0-4.8) k/uL Sodium (137-145) mmol/L Chloride (98-107) mmol/L Carbon Dioxide (22-30) mmol/L BUN (9-20) mg/dL Glucose (74-99) mg/dL Osmolality 334 H (275-295) mOsm/kg ALT (4-49) U/L Troponin I 0.100 H* (0.000-0.034) ng/mL Urine Protein 2+ H (Negative) Urine Blood Small H (Negative) Ur Leukocyte Esterase Large H (Negative) Urine RBC 66 H (0-5) /hpf Urine WBC 63 H (0-5) /hpf Triple Phos Crystals Many H (None) /hpf Urine Bacteria Occasional H (None) /hpf Urine Mucus Few H (None) /hpf 11/24/24 11/24/24 11/24/24 Range/Units 00:31 01:30 07:02 WBC (3.8-10.6) k/uL RBC (4.30-5.90) m/uL Hct (39.0-53.0) % Neutrophils # (1.3-7.7) k/uL Lymphocytes # (1.0-4.8) k/uL Sodium 147 H 146 H (137-145) mmol/L Chloride 114 H 115 H (98-107) mmol/L Carbon Dioxide 20 L 20 L (22-30) mmol/L BUN 29 H 29 H (9-20) mg/dL Glucose 249 H 135 H (74-99) mg/dL Osmolality (275-295) mOsm/kg ALT (4-49) U/L Troponin I 0.094 H* (0.000-0.034) ng/mL Urine Protein (Negative) Urine Blood (Negative) Ur Leukocyte Esterase (Negative) Urine RBC (0-5) /hpf Urine WBC (0-5) /hpf Triple Phos Crystals (None) /hpf Urine Bacteria (None) /hpf Urine Mucus (None) /hpf
[2024-11-24 14:31] LABS: Appearance,Urine Turbid (Clear); Bacteria,Urine Few /hpf; Bilirubin,Urine Negative (Negative); Blood,Urine Large (Negative); Color,Urine Yellow; Glucose,Urine (UA) Negative (Negative); Ketones,Urine Negative (Negative); Leukocyte Esterase,Urine Large (Negative); Mucus,Urine Occasional /hpf; Nitrite,Urine Negative (Negative); PH, Urine 5.5 (5.0-8.0); Protein,Urine 1+ (Negative); RBC,Urine 80 /hpf (0-5); Specific Gravity,Urine 1.031 (1.001-1.035); Urobilinogen,Urine <2.0 mg/dL (<2.0); WBC,Urine 128 /hpf (0-5)
[2024-11-24] MEDS ORDERED: bisacodyL 10 MG SUPP RECTAL PRN (16:03)
--- NOTE | 2024-11-24 16:54 | P.PN ---
Subjective Progress Note Date: 11/24/24 64-year-old male with a past medical history significant for multiple sclerosis, non-verbal at baseline, functional quadriplegia, chronic indwelling Stein catheter, recurrent catheter associated UTI, seizure disorder, PEG tube dependent presents to the emergency department today from [facility] via EMS with concerns of fever. It is reported that today he had a temperature of 100.3 F, he was given Tylenol at 12:30 PM, had albuterol at 12:30 PM, and had reportedly had wet lung sounds. In the ED patient underwent extensive evaluation. BP 158/82, MA 59 bpm, RR 34, 93% on 3 L nasal cannula, 100.1 F. WBC 15.1, hemoglobin 17.2, platelets 276, sodium 154, potassium 3.9, chloride 118, CO2 21, BUN 34, creatinine 0.89, glucose 123, troponin x 1: 0.087; UA large LE; Cepheid negative. EKG showed sinus tachycardia with ventricular rate 118 bpm, MA 144 ms, QTc 362 ms, no ST segment changes. CXR showed low lung volumes with generalized hazy appearance which could represent atelectasis versus pulmonary edema. Patient was given bronchodilators, IVF, Cefepime, Rocephin and Ofirmev and admitted for further workup and management. 11/24 Patient was seen and examined. Sister at bedside. Wet cough during enco unter. BMP shows Na 146, Cl 115, bicarb 20, BUN 29, glu 135. Trop 0.1, 0.094. Pro-cris 0.27. Maintained on Cefepime 2g IV TID. KUB shows nonspecific bowel gas pattern. General: non toxic, no distress, appears at stated age Derm: warm, dry Head: atraumatic, normocephalic, symmetric, thursh Eyes: EOMI, no lid lag, anicteric sclera Mouth: no lip lesion, mucus membranes moist Cardiovascular: S1S2 tachy, no murmur Lungs: rhonchi bilaterally, no rales , no accessory muscle use Abdominal: distended, nontender to palpation, no guarding, PEG in place Ext: no gross muscle atrophy, 1+ pitting LE edema, no contractures Neuro: no focal neuro deficits Psych: Nonverbal Based on my assessment of this patient, this patient meets a high complexity level of care. Sepsis likely secondary to PNA versus catheter associated UTI: Procal 0.27. Continue Cefepime 2g IV TID. Obtain CT Chest/Abd/Pelvis. DuoNeb TID schduled. Follow UCx + BCx. Telemetry monitoring. Pulmonary consulted. Acute hypoxic respiratory failure secondary to above: Obtain CT chest. Bronchodilators as above. Add Mucormyst 200 mg INH QID. Add SoluMedrol 40 mg IV TID. Add Mucinex 1200 mg PEG BID. Pulmonary consulted. NSTEMI type II: Likely due to above. Troponins flat. ASA 81 mg PEG QD. Metoprolol 50 mg PEG BID. Cardiology consulted. Hypernatremia with prerenal azotemia: Free water deficit of 5.2L. Improved with D5W. Cautious use of fluids given low EF. Avoid nephrotoxins. Daily BMP. Thrush: Diflucan 200 mg PEG QD. Seizure disorder: Carbamazepine 100 mg PEG TID. Lacosamide 150 mg PEG BID. Constipation: Lactulose 20 g PEG TID. Miralax 17g PEG QD. Dulcolax 10 mg RECTAL QD PRN. Hypertension: Metoprolol as above. Multiple sclerosis: Amantadine 100 mg PEG QD. Dietitian consulted. CODE STATUS: FULL CODE DVT Prophylaxis: Lovenox SQ GI Prophylaxis: Pepcid Designated medical POA if patient is not able to make medical decisions for themselves: Sister I have reviewed the following organizational effectiveness consultant notes: I have reviewed the results of the following tests: BMP. Trop x 2. Procal. KUB I have ordered the following tests: CT Chest/Abd/Pelvis. CBC and BMP in the AM. I have discussed the care of this patient with the following independent historian: I have independently interpreted the following test below: I have discussed the management of this patient with the following physician: Objective - Vital Signs Vital signs: Vital Signs Temp 98.9 F 11/24/24 15:54 Pulse 99 11/24/24 15:54 Resp 18 11/24/24 15:54 BP 144/86 11/24/24 15:54 Pulse Ox 92 L 11/24/24 15:54 FiO2 Intake & Output 11/23/24 11/24/24 11/24/24 18:59 06:59 18:59 Weight 104.326 kg 88.5 kg - Labs CBC & Chem 7: 11/23/24 16:14 11/24/24 07:02 Labs: Abnormal Lab Results - Last 24 Hours (Table) 11/23/24 11/23/24 11/23/24 Range/Units 16:14 16:14 16:14 WBC 15.1 H (3.8-10.6) k/uL RBC 6.00 H (4.30-5.90) m/uL Hct 54.7 H (39.0-53.0) % Neutrophils # 13.1 H (1.3-7.7) k/uL Lymphocytes # 0.8 L (1.0-4.8) k/uL Sodium 154 H (137-145) mmol/L Chloride 118 H (98-107) mmol/L Carbon Dioxide 21 L (22-30) mmol/L BUN 34 H (9-20) mg/dL Glucose 123 H (74-99) mg/dL Osmolality (275-295) mOsm/kg ALT 50 H (4-49) U/L Troponin I 0.087 H* (0.000-0.034) ng/mL Urine Protein (Negative) Urine Blood (Negative) Ur Leukocyte Esterase (Negative) Urine RBC (0-5) /hpf Urine WBC (0-5) /hpf Triple Phos Crystals (None) /hpf Urine Bacteria (None) /hpf Urine Mucus (None) /hpf 11/23/24 11/23/24 11/23/24 Range/Units 16:14 18:16 19:55 WBC (3.8-10.6) k/uL RBC (4.30-5.90) m/uL Hct (39.0-53.0) % Neutrophils # (1.3-7.7) k/uL Lymphocytes # (1.0-4.8) k/uL Sodium (137-145) mmol/L Chloride (98-107) mmol/L Carbon Dioxide (22-30) mmol/L BUN (9-20) mg/dL Glucose (74-99) mg/dL Osmolality 334 H (275-295) mOsm/kg ALT (4-49) U/L Troponin I 0.100 H* (0.000-0.034) ng/mL Urine Protein 2+ H (Negative) Urine Blood Small H (Negative) Ur Leukocyte Esterase Large H (Negative) Urine RBC 66 H (0-5) /hpf Urine WBC 63 H (0-5) /hpf Triple Phos Crystals Many H (None) /hpf Urine Bacteria Occasional H (None) /hpf Urine Mucus Few H (None) /hpf 11/24/24 11/24/24 11/24/24 Range/Units 00:31 01:30 07:02 WBC (3.8-10.6) k/uL RBC (4.30-5.90) m/uL Hct (39.0-53.0) % Neutrophils # (1.3-7.7) k/uL Lymphocytes # (1.0-4.8) k/uL Sodium 147 H 146 H (137-145) mmol/L Chloride 114 H 115 H (98-107) mmol/L Carbon Dioxide 20 L 20 L (22-30) mmol/L BUN 29 H 29 H (9-20) mg/dL Glucose 249 H 135 H (74-99) mg/dL Osmolality (275-295) mOsm/kg ALT (4-49) U/L Troponin I 0.094 H* (0.000-0.034) ng/mL Urine Protein (Negative) Urine Blood (Negative) Ur Leukocyte Esterase (Negative) Urine RBC (0-5) /hpf Urine WBC (0-5) /hpf Triple Phos Crystals (None) /hpf Urine Bacteria (None) /hpf Urine Mucus (None) /hpf 11/24/24 Range/Units 14:06 WBC (3.8-10.6) k/uL RBC (4.30-5.90) m/uL Hct (39.0-53.0) % Neutrophils # (1.3-7.7) k/uL Lymphocytes # (1.0-4.8) k/uL Sodium (137-145) mmol/L Chloride (98-107) mmol/L Carbon Dioxide (22-30) mmol/L BUN (9-20) mg/dL Glucose (74-99) mg/dL Osmolality (275-295) mOsm/kg ALT (4-49) U/L Troponin I (0.000-0.034) ng/mL Urine Protein 1+ H (Negative) Urine Blood Large H (Negative) Ur Leukocyte Esterase Large H (Negative) Urine RBC 80 H (0-5) /hpf Urine WBC 128 H (0-5) /hpf Triple Phos Crystals (None) /hpf Urine Bacteria Few H (None) /hpf Urine Mucus Occasional H (None) /hpf
[2024-11-24] MEDS: SCOPOLAMINE 1 MG/72 HR PATCH TRANSDERM SCH (16:56)
[2024-11-24] MEDS: FLUCONAZOLE ORAL SUSP 1,400 MG/35 ML BOTTLE PO SCH (17:58)
[2024-11-24 18:10] LABS: Glucose,Whole Blood 98 mg/dL (70-110)
--- NOTE | 2024-11-24 18:29 | CT ---
EXAMINATION TYPE: CT ChestAbd wo con CT DLP: 873.2 mGycm, Automated exposure control for dose reduction was used. DATE OF EXAM: 11/24/2024 5:37 PM COMPARISON: CT abdomen and pelvis 10/26/2024, 10/17/2023, CT chest 10/23/2023 CLINICAL INDICATION:Male, 64 years old with history of Sepsis; PHH, sepsis Technique: Multiple axial images of the chest and abdomen were obtained without intravenous or oral c ontrast which limits evaluation. Two-dimensional coronal and sagittal reconstructions were obtained. Findings: CHEST: Motion degraded examination. LUNGS/ PLEURA: No pleural effusion or pneumothorax. Left lower lobe patchy airspace opacities. Elevat ion of the right hemidiaphragm. AIRWAY: Patent and unremarkable.. HEART: Size within normal limits.No pericardial effusion. Mild to moderate coronary arterial calcific ations.. MEDIASTINUM: No gross evidence of adenopathy. VASCULATURE: No aortic aneurysm. MUSCULOSKELETAL: No acute osseous abnormalities. SOFT TISSUES/LYMPH NODES: Bilateral gynecomastia. LOWER NECK: No significant findings. ABDOMEN: ABDOMEN LIVER: Unremarkable GALLBLADDER AND BILE DUCTS: Unremarkable. PANCREAS: Unremarkable. SPLEEN: Unremarkable. ADRENAL GLANDS: Unremarkable. KIDNEYS AND URETERS: No evidence of hydronephrosis . Punctate nonobstructive left renal calculus. Mil d atrophy of the left kidney compared to the right. STOMACH AND BOWEL: Redundant air-filled prominent sigmoid colon. Moderate amount of stool is present throughout the colon. PEG tube appears appropriately positioned within the distal stomach. Small hiat al hernia. The appendix appears within normal limits. No focal bowel wall thickening or surrounding i nflammatory changes. No evidence of bowel obstruction. PERITONEUM: No evidence of pneumoperitoneum or free fluid. VASCULATURE: Mild atherosclerotic calcifications are present throughout the abdominal aorta and its b ranches. No abdominal aortic aneurysm. MUSCULOSKELETAL: No acute osseous abnormalities. Partial visualization of left hip fracture with hete rotopic ossification. LYMPH NODES: No gross evidence for lymphadenopathy. SOFT TISSUE/ABDOMINAL WALL: Tiny fat filled periumbilical hernia. IMPRESSION: Limited examination due to lack of intravenous/oral contrast and motion degradation. 1. No acute intra-abdominal process. 2. Left lower lobe patchy airspace opacities concerning for pneumonia. 3. Partial visualization of left hip fracture with surrounding heterotopic ossification. 4. Punctate nonobstructive left renal calculus. [facility], , 11/24/2024 6:26 PM
[2024-11-24] MEDS: guaiFENesin 600 MG TABLET.ER PO SCH (20:11)
[2024-11-24] MEDS: LACTULOSE 20 GM/30 ML CUP PEG/G-TUBE SCH (20:11)
[2024-11-24] MEDS: LACOSAMIDE 150 MG TABLET PEG/G-TUBE SCH (20:11)
[2024-11-24] MEDS: BACLOFEN 10 MG TAB PEG/G-TUBE SCH (20:11)
[2024-11-24] MEDS: SENNOSIDES 8.6 MG TAB PEG/G-TUBE SCH (20:11)
[2024-11-24] MEDS ORDERED: NON FORMULARY DRUG (Amino Acids/Protein Hydrolys [Pro-Stat Awc Liquid] 887 ML Liquid) PEG/G-TUBE SCH (21:00)
[2024-11-24] MEDS: IPRATROPIUM-ALBUTEROL 3 ML NEB INHALATION SCH (21:42)
[2024-11-24] MEDS: ACETYLCYSTEINE 800 MG/4 ML VIAL INHALATION SCH (21:42)
[2024-11-24] MEDS: methylPREDNISolone SOD SUCCI 40 MG/ML 1 ML VIAL IV SCH (23:31)
[2024-11-25 00:04] LABS: Glucose,Whole Blood 97 mg/dL (70-110)
--- NOTE | 2024-11-25 02:16 | P.CNPUL ---
History of Present Illness Consult date: 11/25/24 Requesting physician: Bernabe Newberry Reason for consult: pneumonia Chief complaint: Fever History of present illness: Patient is a 64-year-old male with past medical history significant for multiple sclerosis, seizure disorder, paraplegia, neurogenic bladder with chronic indwelling urinary catheter, dysphagia with G-tube, DVT, among other debilitating conditions. Patient was sent in from intermediate with fevers on 11/23/2024. Patient is nonverbal, I believe this is baseline. Workup in the emergency department including a urinalysis with reflex to culture positive for gram-negative bacilli. Currently on cefepime, and infectious disease is consulted. There is also concern for possible pneumonia. CT of the chest, abdomen and pelvis did not show any acute intra-abdominal process, however, did show a left lower lobe patchy airspace opacity. Partial visualization of left hip fracture with surrounding heterotopic ossification. CBC: WBC count 15.1, hemoglobin 17.2, hematocrit 54.7, platelets 276. Most recent BMP includes a sodium 146, potassium 3.8, chloride 115, serum bicarb 20, BUN 29, creatinine 0.76, glucose 135. Troponins 0.87, 0.1, and 0.094 respectively. NT proBNP 985. Procalcitonin level 0.27. Preliminary blood cultures show no growth at 24 hours. Viral screen was negative for influenza, RSV, COVID. Patient currently being evaluated on the cardiac stepdown floor. Appears lethargic, does not offer any information or follow commands. He is on 3 L/min nasal cannula. He has a congested and weak cough. Coarse rhonchi heard bilaterally. Has a PEG tube with continuous enteral nutrition, 1.5 Sherman tube infusing at 20 cc/h and every 4 hours 30 mL flushes. Goal rate is 75 cc/h. Also normal saline is infusing at 20 cc/h. Current vital signs: Temperature 98.1 F, heart rate 112 bpm, blood pressure 129/74 mmHg, nontachypneic, SpO2 reading 97% on 3 L/min nasal cannula. Review of Systems ROS unobtainable: due to mental status Past Medical History Past Medical History: Deep Vein Thrombosis (DVT), GERD/Reflux, Hypertension, Musculoskeletal Disorder, Neurologic Disorder, Pneumonia, Seizure Disorder, Skin Disorder Additional Past Medical History / Comment(s): Pt diagnosed with MS at the age of 39 yrs, seizure/pneumonia/UTI with sepsis/respirtory failure/vented, cognitive impairment, sister states when he is feeling well he could speak a few words/nod head appropriately/give thumbs up/roll eyes but when ill is nonverbal, pt has dysphagia/NPO with peg tube, contractures, last seizure 07/2020, trigeminal neuralgia, dysarthria/anarthria/neurogenic bladder with IDC-UTIs/sepsis, multiple pneumonias, recent seizure-last one 07/03/20, incontinent of stool, pt has had decubitus ulcer coccyx-sister unsure of skin condition at this time, past anemia r/t heparin/epistaxiis which involved nasal packing/transfusions, DVT bilateral arms, hypoxia, oxygen at 2L/NC, L femoral head fracture History of Any Multi-Drug Resistant Organisms: ESBL, MRSA, Other MDRO Date of last positivie culture/infection: 03/09/21-MRSA; 11/23/19 ESBL-E.coli MDRO Source:: Abdomen-Peg site MRSA; Urine -ESBL Past Surgical History: Tonsillectomy Additional Past Surgical History / Comment(s): Gastrostomy, peg tube, I&D coccyx decubitius, bronchoscopy, bilateral lasik eye surgery. Past Anesthesia/Blood Transfusion Reactions: No Reported Reaction Additional Past Anesthesia/Blood Transfusion Reaction / Comment(s): Pt has received blood in past without reaction. Past Psychological History: Depression Additional Psychological History / Comment(s): Pt resides at [facility]. He normally is in bed/amita lift to wheelchair. Has peg/IDC Smoking Status: Never smoker Past Alcohol Use History: None Reported Past Drug Use History: None Reported - Past Family History Father Family Medical History: Myocardial Infarction ([place]) Mother Family Medical History: Hypertension, Myocardial Infarction (LA) Additional Family Medical History / Comment(s): Mother of a [place] at the age of 73 yrs. Medications and Allergies Home Medications Medication Instructions Recorded Confirmed Type Aspirin 81 mg PEG/G-TUBE DAILY 11/27/20 11/23/24 History Acetaminophen Tab [Tylenol] 650 mg PEG/G-TUBE Q4H PRN 06/13/21 11/23/24 History Metoprolol Tartrate [Lopressor] 50 mg PEG/G-TUBE BID 06/13/21 11/23/24 History carBAMazepine [carBAMazepine Oral 100 mg PEG/G-TUBE TID 07/02/21 11/23/24 History Susp] Lactulose 20 gm PEG/G-TUBE TID 01/03/22 11/23/24 History Scopolamine [Scopolamine 1 MG/72 1 patch TRANSDERM Q72H 01/03/22 11/23/24 History HR patch] oxyBUTYnin chloride 5 mg PEG/G-TUBE DAILY 12/19/22 11/23/24 History Famotidine [Pepcid] 20 mg PEG/G-TUBE DAILY 07/14/23 11/23/24 History Ipratropium-Albuterol Nebulize 3 ml INHALATION RT-TID 11/18/23 11/23/24 History [Duoneb 0.5 mg-3 mg/3 ml Soln] Lacosamide [Vimpat Oral Soln] 150 mg PEG/G-TUBE BID 11/18/23 11/23/24 History Baclofen 5 mg PEG/G-TUBE TID 07/25/24 11/23/24 History Cranberry 450mg 450 mg PEG/G-TUBE DAILY 07/25/24 11/23/24 History amantadine HCL [Amantadine] 100 mg PEG/G-TUBE DAILY 07/25/24 11/23/24 History bisacodyL [Dulcolax] 10 mg RECTAL DAILY PRN 07/25/24 11/23/24 History Amino Acids/Protein Hydrolys 30 ml PEG/G-TUBE BID 10/23/24 11/23/24 History [Pro-Stat Awc Liquid] Sennosides [Senokot] 8.6 mg PEG/G-TUBE BID #60 tab 10/28/24 11/23/24 Rx polyethylene glycoL 3350 [Miralax] 17 gm PEG/G-TUBE DAILY #30 packet 10/28/24 11/23/24 Rx Allergies Allergy/AdvReac Type Severity Reaction Status Date / Time meropenem [From Merrem] Allergy Rash/Hives Verified 11/23/24 18:34 ceftolozane [From Zerbaxa] AdvReac Rapid Verified 11/23/24 18:34 Heart Rate tazobactam [From Zerbaxa] AdvReac Rapid Verified 11/23/24 18:34 Heart Rate Physical Exam Vitals: Vital Signs Temp Pulse Pulse Resp BP BP Pulse Ox 11/25/24 00:00 98.1 F 52 L 19 129/74 97 11/24/24 22:02 112 H 11/24/24 21:42 110 H 11/24/24 20:00 98.1 F 76 18 154/87 94 L 11/24/24 15:54 98.9 F 99 18 144/86 92 L 11/24/24 12:04 97.9 F 83 18 159/98 94 L 11/24/24 11:39 98.4 F 88 15 161/98 95 11/24/24 09:41 79 16 104/86 96 11/24/24 08:06 98.5 F 88 20 160/102 96 11/24/24 06:47 98.5 F 91 18 160/102 95 11/24/24 04:00 103 H 20 157/86 95 Intake and Output 11/24/24 11/24/24 11/25/24 14:59 22:59 06:59 Other: Voiding Method Indwelling Catheter Indwelling Catheter Weight 88.5 kg 88.5 kg GENERAL EXAM: Lethargic, 64-year-old male, with awakens to verbal stimuli but then falls back to sleep. Does not follow commands. HEAD: Normocephalic and atraumatic EYES: Normal reaction of pupils, equal size. NOSE: Clear with pink turbinates. THROAT: No erythema or exudates. NECK: No masses, no JVD. CHEST: No chest wall deformity. LUNGS: Equal air entry with coarse rhonchi heard bilaterally. Currently on 3 L /min nasal cannula. Has a weak and congested cough CVS: S1 and S2 normal with no audible murmur, regular rhythm. No extra heart sounds ABDOMEN: No hepatosplenomegaly, active bowel sounds, no guarding or rigidity. PEG tube noted with continuous enteral nutrition at 20 mL/h. SPINE: No scoliosis or deformity SKIN: No rashes CENTRAL NERVOUS SYSTEM: No focal deficits, tone is normal in all 4 extremities. EXTREMITIES: There is no peripheral edema, clubbing, or cyanosis. Peripheral pulses are intact. Results - Laboratory Findings CBC and BMP: 11/23/24 16:14 11/24/24 07:02 PT/INR, D-dimer PT 12.1 sec (10.0-12.5) 11/23/24 16:14 INR 1.1 (<1.2) 11/23/24 16:14 Abnormal lab findings: Abnormal Labs 11/23/24 11/23/24 11/23/24 16:14 16:14 16:14 WBC 15.1 H RBC 6.00 H Hct 54.7 H Neutrophils # 13.1 H Lymphocytes # 0.8 L Sodium 154 H Chloride 118 H Carbon Dioxide 21 L BUN 34 H Glucose 123 H Osmolality ALT 50 H Troponin I 0.087 H* Urine Protein Urine Blood Ur Leukocyte Esterase Urine RBC Urine WBC Triple Phos Crystals Urine Bacteria Urine Mucus 11/23/24 11/23/24 11/23/24 16:14 18:16 19:55 WBC RBC Hct Neutrophils # Lymphocytes # Sodium Chloride Carbon Dioxide BUN Glucose Osmolality 334 H ALT Troponin I 0.100 H* Urine Protein 2+ H Urine Blood Small H Ur Leukocyte Esterase Large H Urine RBC 66 H Urine WBC 63 H Triple Phos Crystals Many H Urine Bacteria Occasional H Urine Mucus Few H 11/24/24 11/24/24 11/24/24 00:31 01:30 07:02 WBC RBC Hct Neutrophils # Lymphocytes # Sodium 147 H 146 H Chloride 114 H 115 H Carbon Dioxide 20 L 20 L BUN 29 H 29 H Glucose 249 H 135 H Osmolality ALT Troponin I 0.094 H* Urine Protein Urine Blood Ur Leukocyte Esterase Urine RBC Urine WBC Triple Phos Crystals Urine Bacteria Urine Mucus 11/24/24 14:06 WBC RBC Hct Neutrophils # Lymphocytes # Sodium Chloride Carbon Dioxide BUN Glucose Osmolality ALT Troponin I Urine Protein 1+ H Urine Blood Large H Ur Leukocyte Esterase Large H Urine RBC 80 H Urine WBC 128 H Triple Phos Crystals Urine Bacteria Few H Urine Mucus Occasional H - Diagnostic Findings CT scan - chest: image reviewed Assessment and Plan Assessment: Acute febrile illness Urinary tract infection, urine culture positive for gram-negative bacilli Acute hypoxemic respiratory failure, CT of the chest, abdomen, pelvis demonstrating a left lower lobe patchy airspace opacity concerning for possible community-acquired pneumonia Acute leukocytosis Hyperchloremic hypernatremia Prerenal azotemia Elevated troponins, likely type II LA History of multiple sclerosis History of dysphagia, with PEG tube and enteral nutrition History of neurogenic bladder with chronic indwelling urinary catheter and frequent urinary tract infections History of seizure disorder History of dementia Plan: Patient's medications, labs, imaging reviewed Continue supplemental oxygen, currently on 3 L/min nasal cannula Continue antibiotics per infectious disease Procalcitonin level 0.27 Encourage pulmonary toileting Aspiration precautions Continue enteral nutrition through PEG tube with free water flushes DVT prophylaxis: Lovenox GI prophylaxis: Pepcid Prognosis is guarded secondary to above mentioned comorbidities We will continue to follow I have personally seen and examined the patient, performed the documentation and the assessment and plan as written. Number of minutes spent on the visit:20 Time with Patient: Greater than 30
[2024-11-25 05:57] LABS: Glucose,Whole Blood 149 mg/dL (70-110)
[2024-11-25 07:12] LABS: HCT 50.7 % (39.0-53.0); HGB 15.3 gm/dL (13.0-17.5); Hypochromasia Marked; MCH 28.4 pg (25.0-35.0); MCHC 30.2 g/dL (31.0-37.0); MCV 94.3 fL (80.0-100.0); Mean Platelet Volume 9.1; Platelet Count 254 k/uL (150-450); RBC 5.38 m/uL (4.30-5.90); RDW 14.7 % (11.5-15.5); WBC 7.3 k/uL (3.8-10.6)
--- NOTE | 2024-11-25 07:13 | P.CONS ---
History of Present Illness - Reason for Consult Consult date: 11/24/24 UTI Requesting physician: Cici Jimenez - Chief Complaint Fever x 1 day - History of Present Illness Patient is a 64-year-old male with a past medical history significant for MS in this patient has been bedbound did have a chronic indwelling catheter and multiple admission to hospital for UTI and pneumonia patient has been brought into the hospital for evaluation of fever of 100.3 degrees for night patient was noticed to have right lung sounds at this is facility and there were concern for UTI/pneumonia for the patient has been transferred to the hospital for further evaluation on presentation to this facility patient did have a temperature of 100.1 F patient was tachycardic but not hypotensive mildly hypoxic currently on 3 L nasal cannula oxygen patient did have a white count of 15.1 with a left shift creatinine 0.89 troponins are mildly elevated he did have a positive UA influenza RSV COVID testing was negative patient did have a chest x-ray low lung volumes with generalized CC presents with the present atelectasis versus pulmonary edema patient was started on cefepime has been admitted to hospital infectious disease was consulted for further management followed by therapy most information has been obtained from review the chart talking to nursing staff and the patient cannot provide any history Review of Systems Positive points has been mentioned in HPI complete review could not be obtained because of his underlying mental status Past Medical History Past Medical History: Deep Vein Thrombosis (DVT), GERD/Reflux, Hypertension, Musculoskeletal Disorder, Neurologic Disorder, Pneumonia, Seizure Disorder, Skin Disorder Additional Past Medical History / Comment(s): Pt diagnosed with MS at the age of 39 yrs, seizure/pneumonia/UTI with sepsis/respirtory failure/vented, cognitive impairment, sister states when he is feeling well he could speak a few words/nod head appropriately/give thumbs up/roll eyes but when ill is nonverbal, pt has dysphagia/NPO with peg tube, contractures, last seizure 07/2020, trigeminal neuralgia, dysarthria/anarthria/neurogenic bladder with IDC-UTIs/sepsis, multiple pneumonias, recent seizure-last one 07/03/20, incontinent of stool, pt has had decubitus ulcer coccyx-sister unsure of skin condition at this time, past anemia r/t heparin/epistaxiis which involved nasal packing/transfusions, DVT bilateral arms, hypoxia, oxygen at 2L/NC, L femoral head fracture History of Any Multi-Drug Resistant Organisms: ESBL, MRSA, Other MDRO Year Discovered:: 03/09/21-MRSA; 11/23/19 ESBL-E.coli MDRO Source:: Abdomen-Peg site MRSA; Urine -ESBL Past Surgical History: Tonsillectomy Additional Past Surgical History / Comment(s): Gastrostomy, peg tube, I&D coccyx decubitius, bronchoscopy, bilateral lasik eye surgery. Past Anesthesia/Blood Transfusion Reactions: No Reported Reaction Additional Past Anesthesia/Blood Transfusion Reaction / Comm: Pt has received blood in past without reaction. Past Psychological History: Depression Smoking Status: Never smoker Past Alcohol Use History: None Reported Past Drug Use History: None Reported - Past Family History Father Family Medical History: Myocardial Infarction ([place]) Mother Family Medical History: Hypertension, Myocardial Infarction ([place]) Additional Family Medical History / Comment(s): Mother of a [place] at the age of 73 yrs. Medications and Allergies Home Medications Medication Instructions Recorded Confirmed Type Aspirin 81 mg PEG/G-TUBE DAILY 11/27/20 11/23/24 History Acetaminophen Tab [Tylenol] 650 mg PEG/G-TUBE Q4H PRN 06/13/21 11/23/24 History Metoprolol Tartrate [Lopressor] 50 mg PEG/G-TUBE BID 06/13/21 11/23/24 History carBAMazepine [carBAMazepine Oral 100 mg PEG/G-TUBE TID 07/02/21 11/23/24 History Susp] Lactulose 20 gm PEG/G-TUBE TID 01/03/22 11/23/24 History Scopolamine [Scopolamine 1 MG/72 1 patch TRANSDERM Q72H 01/03/22 11/23/24 History HR patch] oxyBUTYnin chloride 5 mg PEG/G-TUBE DAILY 12/19/22 11/23/24 History Famotidine [Pepcid] 20 mg PEG/G-TUBE DAILY 07/14/23 11/23/24 History Ipratropium-Albuterol Nebulize 3 ml INHALATION RT-TID 11/18/23 11/23/24 History [Duoneb 0.5 mg-3 mg/3 ml Soln] Lacosamide [Vimpat Oral Soln] 150 mg PEG/G-TUBE BID 11/18/23 11/23/24 History Baclofen 5 mg PEG/G-TUBE TID 07/25/24 11/23/24 History Cranberry 450mg 450 mg PEG/G-TUBE DAILY 07/25/24 11/23/24 History amantadine HCL [Amantadine] 100 mg PEG/G-TUBE DAILY 07/25/24 11/23/24 History bisacodyL [Dulcolax] 10 mg RECTAL DAILY PRN 07/25/24 11/23/24 History Amino Acids/Protein Hydrolys 30 ml PEG/G-TUBE BID 10/23/24 11/23/24 History [Pro-Stat Awc Liquid] Sennosides [Senokot] 8.6 mg PEG/G-TUBE BID #60 tab 10/28/24 11/23/24 Rx polyethylene glycoL 3350 [Miralax] 17 gm PEG/G-TUBE DAILY #30 packet 10/28/24 11/23/24 Rx Allergies Allergy/AdvReac Type Severity Reaction Status Date / Time meropenem [From Merrem] Allergy Rash/Hives Verified 11/23/24 18:34 ceftolozane [From Zerbaxa] AdvReac Rapid Verified 11/23/24 18:34 Heart Rate tazobactam [From Zerbaxa] AdvReac Rapid Verified 11/23/24 18:34 Heart Rate Physical Exam Vitals: Vital Signs Temp Pulse Resp BP Pulse Ox 11/24/24 08:06 98.5 F 88 20 160/102 96 11/24/24 06:47 98.5 F 91 18 160/102 95 11/24/24 04:00 103 H 20 157/86 95 11/24/24 00:30 99 18 137/78 95 11/23/24 23:00 92 24 139/79 95 11/23/24 21:30 123 H 30 H 134/92 93 L 11/23/24 20:56 98.3 F 117 H 32 H 155/107 95 11/23/24 19:16 116 H 11/23/24 19:12 116 H 11/23/24 18:29 100.1 F H 118 H 32 H 187/79 94 L 11/23/24 16:30 115 H 28 H 124/87 93 L 11/23/24 15:14 99.2 F 59 L 34 H 158/82 93 L Intake and Output 11/23/24 11/24/24 11/24/24 22:59 06:59 14:59 Other: Weight 104.326 kg GENERAL DESCRIPTION: Elderly male lying in bed, no distress. No tachypnea or accessory muscle of respiration use. HEENT: Shows Pallor , no scleral icterus. Oral mucous membrane is dry. NECK: Trachea central, no thyromegaly. LUNGS: Unlabored breathing. Coarse breath sounds bilaterally HEART: S1, S2, regular rate and rhythm. No loud murmur ABDOMEN: Soft, no tenderness , guarding or rigidity, no organomegaly EXTREMITIES: No edema of feet. SKIN: No rash, no masses palpable. NEUROLOGICAL: The patient is awake, but nonverbal orientation could not be determined Results CBC & Chem 7: 11/25/24 06:13 11/25/24 06:13 Labs: Abnormal Lab Results - Last 24 Hours (Table) 11/23/24 11/23/24 11/23/24 Range/Units 16:14 16:14 16:14 WBC 15.1 H (3.8-10.6) k/uL RBC 6.00 H (4.30-5.90) m/uL Hct 54.7 H (39.0-53.0) % Neutrophils # 13.1 H (1.3-7.7) k/uL Lymphocytes # 0.8 L (1.0-4.8) k/uL Sodium 154 H (137-145) mmol/L Chloride 118 H (98-107) mmol/L Carbon Dioxide 21 L (22-30) mmol/L BUN 34 H (9-20) mg/dL Glucose 123 H (74-99) mg/dL ALT 50 H (4-49) U/L Troponin I 0.087 H* (0.000-0.034) ng/mL Urine Protein (Negative) Urine Blood (Negative) Ur Leukocyte Esterase (Negative) Urine RBC (0-5) /hpf Urine WBC (0-5) /hpf Triple Phos Crystals (None) /hpf Urine Bacteria (None) /hpf Urine Mucus (None) /hpf 11/23/24 11/23/24 11/24/24 Range/Units 16:14 19:55 00:31 WBC (3.8-10.6) k/uL RBC (4.30-5.90) m/uL Hct (39.0-53.0) % Neutrophils # (1.3-7.7) k/uL Lymphocytes # (1.0-4.8) k/uL Sodium (137-145) mmol/L Chloride (98-107) mmol/L Carbon Dioxide (22-30) mmol/L BUN (9-20) mg/dL Glucose (74-99) mg/dL ALT (4-49) U/L Troponin I 0.100 H* 0.094 H* (0.000-0.034) ng/mL Urine Protein 2+ H (Negative) Urine Blood Small H (Negative) Ur Leukocyte Esterase Large H (Negative) Urine RBC 66 H (0-5) /hpf Urine WBC 63 H (0-5) /hpf Triple Phos Crystals Many H (None) /hpf Urine Bacteria Occasional H (None) /hpf Urine Mucus Few H (None) /hpf 11/24/24 11/24/24 Range/Units 01:30 07:02 WBC (3.8-10.6) k/uL RBC (4.30-5.90) m/uL Hct (39.0-53.0) % Neutrophils # (1.3-7.7) k/uL Lymphocytes # (1.0-4.8) k/uL Sodium 147 H 146 H (137-145) mmol/L Chloride 114 H 115 H (98-107) mmol/L Carbon Dioxide 20 L 20 L (22-30) mmol/L BUN 29 H 29 H (9-20) mg/dL Glucose 249 H 135 H (74-99) mg/dL ALT (4-49) U/L Troponin I (0.000-0.034) ng/mL Urine Protein (Negative) Urine Blood (Negative) Ur Leukocyte Esterase (Negative) Urine RBC (0-5) /hpf Urine WBC (0-5) /hpf Triple Phos Crystals (None) /hpf Urine Bacteria (None) /hpf Urine Mucus (None) /hpf Assessment and Plan (1) Sepsis Current Visit: Yes Status: Acute Code(s): A41.9 - SEPSIS, UNSPECIFIED ORGANISM SNOMED Code(s): 99240809 (2) Catheter-associated urinary tract infection Current Visit: No Status: Acute Code(s): T83.511A - I/I REACT D/T INDWELLING URETHRAL CATHETER, INIT; N39.0 - URINARY TRACT INFECTION, SITE NOT SPECIFIED SNOMED Code(s): 347542304 (3) Pneumonia Current Visit: No Status: Acute Code(s): J18.9 - PNEUMONIA, UNSPECIFIED ORGANISM SNOMED Code(s): 361825904 Plan: 1patient presented to hospital with sepsis in this patient who did have fever tachycardia elevated white count meeting criteria for SIRS source is likely catheter assisted UTI and possible component of pneumonia likely gram-negative k eeping in mind the patient has been in care home resident 2patient with multiple antibiotic ALLERGIES that would limit the number of antibiotic safe to use 3change Stein catheter obtain urine culture from the new Stein and try to bring a sputum for Gram stain and culture, discussed with the nursing staff 4-patient will be empirically treated with cefepime while waiting for the workup to be completed We will follow on clinical condition and cultures to further adjust medication if needed Thank you for this consultation we will follow the patient along with you Dictation was produced using Palkion dictation software. please excuse any grammatical, word or spelling errors. Time with Patient: Greater than 30
[2024-11-25 07:34] LABS: African American GFR (CKD) >90 (>60 ml/min/1.73 sqM); Anion Gap 12 mmol/L; Blood Urea Nitrogen 25 mg/dL (9-20); Calcium 8.8 mg/dL (8.4-10.2); Carbon Dioxide 22 mmol/L (22-30); Chloride 117 mmol/L (98-107); Glucose 154 mg/dL (74-99); Non-African American GFR(CKD) >90 (>60 ml/min/1.73 sqM); Potassium 4.2 mmol/L (3.5-5.1); Sodium 151 mmol/L (137-145)
[2024-11-25] MEDS: polyethylene glycoL 3350 17 GM POWD.PACK PEG/G-TUBE SCH (09:26)
[2024-11-25] MEDS: oxyBUTYnin chloride 5 MG TAB PEG/G-TUBE SCH (09:27)
[2024-11-25] MEDS: ASPIRIN 81 MG PEG/G-TUBE SCH (09:27)
[2024-11-25] MEDS: FAMOTIDINE 20 MG TAB PEG/G-TUBE SCH (09:27)
[2024-11-25] MEDS: PIPERACILLIN-TAZOBACTAM 3.375 GM in SODIUM CHLORIDE 0.9% 100 ML IVPB SCH (11:10)
[2024-11-25] MEDS: SODIUM CHLORIDE 0.45% 1,000 ML IV SCH (11:11)
[2024-11-25 11:17] LABS: Glucose,Whole Blood 185 mg/dL (70-110)
--- NOTE | 2024-11-25 13:13 | CA ---
Transthoracic Echo Report Name: Chris Marvin Age: 64 Gender: M : 1960 Exam Date: 11/25/2024 11:18 Exam Location: [facility] Ht (in): 72 Wt (lb): 198 Ordering Physician: Pippa Tai Attending/Referring Phys: [id number], Abida Charge Aide Misty Jacobs, STACI Procedure CPT: Indications: LVF Cardiac Hx: Technical Quality: Technically difficult study Contrast 1: Definity Total Dose (mL): 2 Contrast 2: Total Dose (mL): MEASUREMENTS (Male / Female) Normal Values 2D ECHO LV Diastolic Diameter PLAX 4.8 cm 4.2 - 5.9 / 3.9 - 5.3 cm LV Systolic Diameter PLAX 3.9 cm IVS Diastolic Thickness 1.3 cm 0.6 - 1.0 / 0.6 - 0.9 cm LVPW Diastolic Thickness 1.4 cm 0.6 - 1.0 / 0.6 - 0.9 cm LV Relative Wall Thickness 0.6 RV Internal Dim ED PLAX 2.0 cm LVOT Diameter 2.0 cm LA Systolic Diameter LX 2.5 cm 3.0 - 4.0 / 2.7 - 3.8 cm LV Diastolic Volume MOD 4C 50.6 cm??? LV Systolic Volume MOD 4C 16.8 cm??? LV Ejection Fraction MOD 4C 66.8 % LV Cardiac Index MOD 4C 1414.2 cm???/min???m??? LV Diastolic Length 4C 6.2 cm LV Systolic Length 4C 3.0 cm M-MODE Aortic Root Diameter MM 3.8 cm LA Systolic Diameter MM 2.8 cm LA Ao Ratio MM 0.7 AV Cusp Separation MM 2.1 cm DOPPLER Mitral E Point Velocity 47.1 cm/s Mitral A Point Velocity 63.1 cm/s Mitral E to A Ratio 0.7 MV Deceleration Time 275.2 ms MV E' Velocity 6.0 cm/s Mitral E to MV E' Ratio 7.9 Right Atrial Pressure 5.0 mmHg FINDINGS Left Ventricle Left ventricular ejection fraction is estimated at 35-40%. Mildly increased septal wall thickness. Moderately reduced global left ventricular systolic function. Left ventricular cavity size normal. Right Ventricle Mild right ventricular dilatation. Right ventricular systolic pressure within normal limits. Right Atrium Normal right atrial size. Left Atrium Normal left atrial size. Mitral Valve Structurally normal mitral valve. Mild mitral regurgitation. No mitral stenosis. Aortic Valve Trileaflet aortic valve. Trace aortic regurgitation. No aortic stenosis. Tricuspid Valve Structurally normal tricuspid valve. Mild tricuspid regurgitation. No tricuspid stenosis. Pulmonic Valve Structurally normal pulmonic valve. Trace pulmonic regurgitation. No pulmonic stenosis. Pericardium Echo free space anterior to the right ventricle likely represents a fat pad. Left pleural effusion. Aorta Mild aortic dilatation at the level of the sinuses of valsalva (root). CONCLUSIONS Left ventricular ejection fraction is estimated at 35-40%. Moderately reduced global left ventricular systolic function. Mild right ventricular dilatation. Mild mitral regurgitation. Mild tricuspid regurgitation. Mild aortic dilatation at the level of the sinuses of valsalva (root). Previewed by: Dr Karri Silveira (Electronically Signed) Final Date: 25 November 2024 13:12
--- NOTE | 2024-11-25 13:17 | P.CRDCN ---
History of Present Illness Consult date: 11/25/24 Reason for Consult (text): Abnormal troponin History of present illness: This is a 64-year-old male with past medical history of DVT, GERD, hypertension, seizure disorder, multiple sclerosis, paraplegia, neurogenic bladder with chronic Stein catheter, dysphagia with G-tube, multiple infections including pneumonia and UTI. Patient is nonverbal. We have been asked to evaluate the patient for elevated troponin. Blood pressure 153/91, heart rate 52, pulse ox 90% on 3 L nasal cannula. Patient has been started on IV antibiotics and IV Solu-Medrol. -EKG: Sinus rhythm, poor quality. -Chest x-ray: Low lung volumes with generalized hazy appearance could represent atelectasis versus pulmonary edema. -CT chest and abdomen without contrast revealed limited exam. No acute intraabdominal process. Left lower lobe patchy airspace opacity concerning for pneumonia. Partial visualization of left hip fracture with surrounding hypertrophic ossification. Punctate nonobstructive left renal calculus. -Laboratory studies: WBC initially 15.1 now 7.3, hemoglobin 15.3. Sodium 151, potassium 4.2, BUN 25 creatinine 0.74. Troponin 0.087, 0.1 and 0.094. Procalcitonin 0.27. C. difficile toxin negative. Cepheid viral panel not detected. Urinalysis large amount of leukoesterase RBCs 80, WBCs 128. -Home cardiac medications: Aspirin 81 mg daily, metoprolol tartrate 50 mg twice daily. -Echocardiogram performed 10/20/2023 revealed EF 40 to 45%. Technically limited study as patient was uncooperative. Review Of Systems: At the time of my exam: Unable to obtain due to patient's mental status Physical examination: Gen: This is a 64-year-old male in no acute respiratory distress VS: reviewed HEENT: Head is atraumatic, normocephalic. Pupils equal, round. Sclerae is anicteric. NECK: Supple. No JVD. LUNGS: Clear to auscultation. No wheezes or rhonchi. No intercostal retractions. HEART: Regular rate and rhythm. No murmur. ABDOMEN: Soft No tenderness. EXTREMITIES: No pedal edema. No calf tenderness. NEUROLOGICAL: Patient is awake. Assessment: Elevated troponin, type II AK Left lower lobe pneumonia Stein catheter associated UTI Hypernatremia MS Dysphagia with G-tube Seizure disorder Dementia Plan: Continue patient's home cardiac medications Obtain 2-D echocardiogram and Doppler study to assess cardiac structure and function Patient is not a candidate for aggressive intervention. Further recommendations to follow based upon clinical course Thank you kindly for this consultation. Nurse practitioner note has been reviewed, I agree with documented findings and plan of care. Patient was seen and examined. Past Medical History Past Medical History: Deep Vein Thrombosis (DVT), GERD/Reflux, Hypertension, Musculoskeletal Disorder, Neurologic Disorder, Pneumonia, Seizure Disorder, Skin Disorder Additional Past Medical History / Comment(s): Pt diagnosed with MS at the age of 39 yrs, seizure/pneumonia/UTI with sepsis/respirtory failure/vented, cognitive impairment, sister states when he is feeling well he could speak a few words/nod head appropriately/give thumbs up/roll eyes but when ill is nonverbal, pt has dysphagia/NPO with peg tube, contractures, last seizure 07/2020, trigeminal neuralgia, dysarthria/anarthria/neurogenic bladder with IDC-UTIs/sepsis, multiple pneumonias, recent seizure-last one 07/03/20, incontinent of stool, pt has had decubitus ulcer coccyx-sister unsure of skin condition at this time, past anemia r/t heparin/epistaxiis which involved nasal packing/transfusions, DVT bilateral arms, hypoxia, oxygen at 2L/NC, L femoral head fracture History of Any Multi-Drug Resistant Organisms: ESBL, MRSA, Other MDRO Date of last positivie culture/infection: 03/09/21-MRSA; 11/23/19 ESBL-E.coli MDRO Source:: Abdomen-Peg site MRSA; Urine -ESBL Past Surgical History: Tonsillectomy Additional Past Surgical History / Comment(s): Gastrostomy, peg tube, I&D coccyx decubitius, bronchoscopy, bilateral lasik eye surgery. Past Anesthesia/Blood Transfusion Reactions: No Reported Reaction Additional Past Anesthesia/Blood Transfusion Reaction / Comment(s): Pt has received blood in past without reaction. Past Psychological History: Depression Smoking Status: Never smoker Past Alcohol Use History: None Reported Past Drug Use History: None Reported - Past Family History Father Family Medical History: Myocardial Infarction (AK) Mother Family Medical History: Hypertension, Myocardial Infarction (AK) Additional Family Medical History / Comment(s): Mother of a AK at the age of 73 yrs. Medications and Allergies Home Medications Medication Instructions Recorded Confirmed Type Aspirin 81 mg PEG/G-TUBE DAILY 11/27/20 11/23/24 History Acetaminophen Tab [Tylenol] 650 mg PEG/G-TUBE Q4H PRN 06/13/21 11/23/24 History Metoprolol Tartrate [Lopressor] 50 mg PEG/G-TUBE BID 06/13/21 11/23/24 History carBAMazepine [carBAMazepine Oral 100 mg PEG/G-TUBE TID 07/02/21 11/23/24 History Susp] Lactulose 20 gm PEG/G-TUBE TID 01/03/22 11/23/24 History Scopolamine [Scopolamine 1 MG/72 1 patch TRANSDERM Q72H 01/03/22 11/23/24 History HR patch] oxyBUTYnin chloride 5 mg PEG/G-TUBE DAILY 12/19/22 11/23/24 History Famotidine [Pepcid] 20 mg PEG/G-TUBE DAILY 07/14/23 11/23/24 History Ipratropium-Albuterol Nebulize 3 ml INHALATION RT-TID 11/18/23 11/23/24 History [Duoneb 0.5 mg-3 mg/3 ml Soln] Lacosamide [Vimpat Oral Soln] 150 mg PEG/G-TUBE BID 11/18/23 11/23/24 History Baclofen 5 mg PEG/G-TUBE TID 07/25/24 11/23/24 History Cranberry 450mg 450 mg PEG/G-TUBE DAILY 07/25/24 11/23/24 History amantadine HCL [Amantadine] 100 mg PEG/G-TUBE DAILY 07/25/24 11/23/24 History bisacodyL [Dulcolax] 10 mg RECTAL DAILY PRN 07/25/24 11/23/24 History Amino Acids/Protein Hydrolys 30 ml PEG/G-TUBE BID 10/23/24 11/23/24 History [Pro-Stat Awc Liquid] Sennosides [Senokot] 8.6 mg PEG/G-TUBE BID #60 tab 10/28/24 11/23/24 Rx polyethylene glycoL 3350 [Miralax] 17 gm PEG/G-TUBE DAILY #30 packet 10/28/24 11/23/24 Rx Allergies Allergy/AdvReac Type Severity Reaction Status Date / Time meropenem [From Merrem] Allergy Rash/Hives Verified 11/23/24 18:34 ceftolozane [From Zerbaxa] AdvReac Rapid Verified 11/23/24 18:34 Heart Rate tazobactam [From Zerbaxa] AdvReac Rapid Verified 11/23/24 18:34 Heart Rate Physical Exam Vitals: Vital Signs Temp Pulse Pulse Resp BP BP Pulse Ox 11/25/24 04:00 98.0 F 52 L 18 153/91 98 11/25/24 00:00 98.1 F 52 L 19 129/74 97 11/24/24 22:02 112 H 11/24/24 21:42 110 H 11/24/24 20:00 98.1 F 76 18 154/87 94 L 11/24/24 15:54 98.9 F 99 18 144/86 92 L 11/24/24 12:04 97.9 F 83 18 159/98 94 L 11/24/24 11:39 98.4 F 88 15 161/98 95 11/24/24 09:41 79 16 104/86 96 Intake and Output 11/24/24 11/25/24 11/25/24 22:59 06:59 14:59 Intake Total 20 60 Output Total 275 Balance 20 -215 Intake: Tube Feeding 20 60 Output: Urine 275 Other: Voiding Method Indwelling Catheter Indwelling Catheter Weight 88.5 kg 90 kg Results 11/25/24 06:13 11/25/24 06:13 CBC 11/25/24 Range/Units 06:13 WBC 7.3 (3.8-10.6) k/uL RBC 5.38 (4.30-5.90) m/uL Hgb 15.3 (13.0-17.5) gm/dL Hct 50.7 (39.0-53.0) % Plt Count 254 (150-450) k/uL Comprehensive Metabolic Panel 11/25/24 Range/Units 06:13 Sodium 151 H (137-145) mmol/L Potassium 4.2 (3.5-5.1) mmol/L Chloride 117 H (98-107) mmol/L Carbon Dioxide 22 (22-30) mmol/L BUN 25 H (9-20) mg/dL Creatinine 0.74 (0.66-1.25) mg/dL Glucose 154 H (74-99) mg/dL Calcium 8.8 (8.4-10.2) mg/dL Current Medications Generic Name Dose Route Start Last Admin Trade Name Freq PRN Reason Stop Dose Admin Acetaminophen 650 mg 11/23/24 20:08 Acetaminophen Tab 325 Mg Tab PEG/G-TUBE Q4H PRN Fever and/ or Pain Acetylcysteine 200 mg 11/24/24 20:00 11/25/24 00:27 Acetylcysteine 800 Mg/4 Ml Vial INHALATION Not Given RT-QID@0000,0800,1300,2000 LUPE Albuterol/Ipratropium 3 ml 11/24/24 20:00 11/24/24 21:42 Ipratropium-Albuterol 3 Ml Neb INHALATION 3 ml RT-TID LUPE Administration Amantadine HCl 100 mg 11/25/24 09:00 Amantadine Hcl 100 Mg Cap PO DAILY LUPE Aspirin 81 mg 11/25/24 09:00 Aspirin 81 Mg PEG/G-TUBE DAILY [facility] Baclofen 5 mg 11/24/24 22:00 11/24/24 20:11 Baclofen 10 Mg Tab PEG/G-TUBE 5 mg TID LUPE Administration Bisacodyl 10 mg 11/24/24 16:03 Bisacodyl 10 Mg Supp RECTAL DAILY PRN Constipation Carbamazepine 100 mg 11/24/24 22:00 11/24/24 20:11 Carbamazepine Chew 100 Mg Chew PEG/G-TUBE 100 mg TID LUPE Administration Enoxaparin Sodium 40 mg 11/24/24 09:00 11/24/24 09:38 Enoxaparin 40 Mg/0.4 Ml Syringe SQ 40 mg DAILY LUPE Administration Famotidine 20 mg 11/25/24 09:00 Famotidine 20 Mg Tab PEG/G-TUBE DAILY [facility]PE Fluconazole 200 mg 11/24/24 18:00 11/24/24 17:58 Fluconazole Oral Susp 1,400 Mg/35 Ml Bottle PO 200 mg DAILY LUPE Administration Protocol Guaifenesin 1,200 mg 11/24/24 21:00 11/24/24 20:11 Guaifenesin 600 Mg Tablet.Er PO 1,200 mg Q12HR LUPE Administration Cefepime HCl 2 gm/ Sodium 100 mls @ 25 mls/hr 11/24/24 08:00 11/24/24 23:32 Chloride IVPB 25 mls/hr Q8HR LUPE Administration Protocol Lacosamide 150 mg 11/24/24 21:00 11/24/24 20:11 Lacosamide 150 Mg Tablet PEG/G-TUBE 150 mg BID LUPE Administration Lactulose 20 gm 11/24/24 22:00 11/24/24 20:11 Lactulose 20 Gm/30 Ml Cup PEG/G-TUBE 20 gm TID LUPE Administration Methylprednisolone Sodium Succinate 40 mg 11/25/24 00:00 11/24/24 23:31 Methylprednisolone Sod Succi 40 Mg/Ml 1 Ml Vial IV 40 mg Q8HR LUPE Administration Metoprolol Tartrate 50 mg 11/23/24 21:00 11/24/24 20:11 Metoprolol Tartrate 50 Mg Tab PEG/G-TUBE 50 mg BID LUPE Administration Naloxone HCl 0.2 mg 11/23/24 18:07 Naloxone 0.4 Mg/Ml 1 Ml Vial IV Q2M PRN Opioid Reversal Oxybutynin Chloride 5 mg 11/25/24 09:00 Oxybutynin Chloride 5 Mg Tab PEG/G-TUBE DAILY LUPE Polyethylene Glycol 17 gm 11/25/24 09:00 Polyethylene Glycol 3350 17 Gm Powd.Pack PEG/G-TUBE DAILY LUPE Scopolamine 1 patch 11/24/24 17:00 11/24/24 16:56 Scopolamine 1 Mg/72 Hr Patch TRANSDERM 1 patch Q72H LUPE Administration Senna 8.6 mg 11/24/24 21:00 11/24/24 20:11 Sennosides 8.6 Mg Tab PEG/G-TUBE 8.6 mg BID LUPE Administration Intake and Output 11/24/24 11/25/24 11/25/24 22:59 06:59 14:59 Intake Total 20 60 Output Total 275 Balance 20 -215 Intake: Tube Feeding 20 60 Output: Urine 275 Other: Voiding Method Indwelling Catheter Indwelling Catheter Weight 88.5 kg 90 kg 11/25/24 06:13 11/25/24 06:13
--- NOTE | 2024-11-25 14:40 | P.PN ---
Subjective Progress Note Date: 11/25/24 64-year-old male with a past medical history significant for multiple sclerosis, non-verbal at baseline, functional quadriplegia, chronic indwelling Stein catheter, recurrent catheter associated UTI, seizure disorder, PEG tube dependent presents to the emergency department today from [facility] via EMS with concerns of fever. It is reported that today he had a temperature of 100.3 F, he was given Tylenol at 12:30 PM, had albuterol at 12:30 PM, and had reportedly had wet lung sounds. In the ED patient underwent extensive evaluation. BP 158/82, MT 59 bpm, RR 34, 93% on 3 L nasal cannula, 100.1 F. WBC 15.1, hemoglobin 17.2, platelets 276, sodium 154, potassium 3.9, chloride 118, CO2 21, BUN 34, creatinine 0.89, glucose 123, troponin x 1: 0.087; UA large LE; Cepheid negative. EKG showed sinus tachycardia with ventricular rate 118 bpm, MT 144 ms, QTc 362 ms, no ST segment changes. CXR showed low lung volumes with generalized hazy appearance which could represent atelectasis versus pulmonary edema. Patient was given bronchodilators, IVF, Cefepime, Rocephin and Ofirmev and admitted for further workup and management. 11/24 Patient was seen and examined. Sister at bedside. Wet cough during enco unter. BMP shows Na 146, Cl 115, bicarb 20, BUN 29, glu 135. Trop 0.1, 0.094. Pro-cris 0.27. Maintained on Cefepime 2g IV TID. KUB shows nonspecific bowel gas pattern. 11/25 Patient was seen and examined. Bledsoe CT yesterday showing LLL patchy opacities, left hip fracture with ossification, nonobstructive left renal stone. UCx growing GNB. Maintained on Cefepime 2g IV TID. CBC and BMP significant for M CHC 30.2, Na 151, Cl 117, BUN 25, glu 154. General: non toxic, no distress, appears at stated age Derm: warm, dry Head: atraumatic, normocephalic, symmetric, thursh Eyes: EOMI, no lid lag, anicteric sclera Mouth: no lip lesion, mucus membranes moist Cardiovascular: S1S2 tachy, no murmur Lungs: rhonchi bilaterally, no rales , no accessory muscle use Abdominal: distended, nontender to palpation, no guarding, PEG in place Ext: no gross muscle atrophy, 1+ pitting LE edema, no contractures Neuro: no focal neuro deficits Psych: Nonverbal Based on my assessment of this patient, this patient meets a high complexity level of care. Sepsis likely secondary to PNA versus catheter associated UTI: Procal 0.27. Bledsoe CT concerning for LLL PNA possibly aspiration. Switch Cefepime to Zosyn 3.75 g IV TID. DuoNeb TID schduled. Aspiration precautions. Elevate HOB. Follow final UCx + BCx. Telemetry monitoring. Pulmonary on board. Acute hypoxic respiratory failure secondary to Aspiration PNA: Bronchodilators and antibiotics as above. Mucormyst 200 mg INH QID. SoluMedrol 40 mg IV TID. Mucinex 1200 mg PEG BID. Pulmonary on board. NSTEMI type II: Likely due to above. Troponins flat. ASA 81 mg PEG QD. M etoprolol 50 mg PEG BID. Echo ordered. Cardiology on board. Hypernatremia with prerenal azotemia: Free water deficit of 5.2L. Improved with D5W. Start 1/2 NS at 50 cc/hr. Avoid nephrotoxins. Daily BMP. Thrush: Diflucan 200 mg PEG QD. Seizure disorder: Carbamazepine 100 mg PEG TID. Lacosamide 150 mg PEG BID. Constipation: Lactulose 20 g PEG TID. Miralax 17g PEG QD. Dulcolax 10 mg RECTAL QD PRN. Hypertension: Metoprolol as above. Multiple sclerosis: Amantadine 100 mg PEG QD. Dietitian consulted. CODE STATUS: FULL CODE DVT Prophylaxis: Lovenox SQ GI Prophylaxis: Pepcid Designated medical POA if patient is not able to make medical decisions for themselves: Sister I have reviewed the following sap payroll consultant notes: Cardiology, Pulmonary. I have reviewed the results of the following tests: CBC, BMP, Bledsoe CT, UCx. I have ordered the following tests: CBC and BMP in the AM. I have discussed the care of this patient with the following independent historian: I have independently interpreted the following test below: I have discussed the management of this patient with the following physician: Objective - Vital Signs Vital signs: Vital Signs Temp 99.7 F H 11/25/24 08:00 Pulse 84 11/25/24 10:03 Resp 18 02/25/25 08:00 BP 145/71 11/25/24 08:00 Pulse Ox 97 11/25/24 08:00 FiO2 Intake & Output 11/24/24 11/25/24 11/25/24 18:59 06:59 18:59 Intake Total 80 40 Output Total 275 Balance -195 40 Weight 88.5 kg 90 kg 90 kg Intake: Tube Feeding 80 40 Output: Urine 275 Other: Voiding Method Indwelling Catheter Indwelling Catheter # Bowel Movements 1 - Labs CBC & Chem 7: 11/25/24 06:13 11/25/24 06:13 Labs: Abnormal Lab Results - Last 24 Hours (Table) 11/24/24 11/25/24 11/25/24 Range/Units 14:06 05:54 06:13 MCHC 30.2 L (31.0-37.0) g/dL Sodium (137-145) mmol/L Chloride (98-107) mmol/L BUN (9-20) mg/dL Glucose (74-99) mg/dL POC Glucose (mg/dL) 149 H (70-110) mg/dL Urine Protein 1+ H (Negative) Urine Blood Large H (Negative) Ur Leukocyte Esterase Large H (Negative) Urine RBC 80 H (0-5) /hpf Urine WBC 128 H (0-5) /hpf Urine Bacteria Few H (None) /hpf Urine Mucus Occasional H (None) /hpf 11/25/24 11/25/24 Range/Units 06:13 11:15 MCHC (31.0-37.0) g/dL Sodium 151 H (137-145) mmol/L Chloride 117 H (98-107) mmol/L BUN 25 H (9-20) mg/dL Glucose 154 H (74-99) mg/dL POC Glucose (mg/dL) 185 H (70-110) mg/dL Urine Protein (Negative) Urine Blood (Negative) Ur Leukocyte Esterase (Negative) Urine RBC (0-5) /hpf Urine WBC (0-5) /hpf Urine Bacteria (None) /hpf Urine Mucus (None) /hpf Microbiology - Last 24 Hours (Table) 11/23/24 16:14 Blood Culture - Preliminary Blood 11/23/24 16:14 Urine Culture - Preliminary Urine,Voided Gram Neg Bacilli
[2024-11-25 16:03] LABS: Glucose,Whole Blood 211 mg/dL (70-110)
--- NOTE | 2024-11-25 16:58 | P.PN ---
Subjective Progress Note Date: 11/25/24 Principal diagnosis: Reason for follow-up is catheter associated UTI/pneumonia Patient is a 64-year-old male with a past medical history significant for MS in this patient has been bedbound did have a chronic indwelling catheter and multiple admission to hospital for UTI and pneumonia patient has been brought into the hospital for evaluation of fever and concern for UTI/pneumonia. On today's evaluation that is 11/25/2024, Patient did have low-grade fever of 99.7 F this morning the patient is afebrile since then the patient is currently breathing comfortably on 2 L current oxygen no vomiting diarrhea and the changes reported by the nursing staff. Patient white count has normalized to 7.3, creatinine 0.74 urine is growing gram-negative Objective - Vital Signs Vital signs: Vital Signs Temp 98.6 F 11/25/24 12:00 Pulse 96 11/25/24 16:01 Resp 18 11/25/24 14:00 BP 125/72 11/25/24 12:00 Pulse Ox 98 11/25/24 12:00 FiO2 Intake & Output 11/24/24 11/25/24 11/25/24 18:59 06:59 18:59 Intake Total 80 150 Output Total 275 Balance -195 150 Weight 88.5 kg 90 kg 90 kg Intake: Tube Feeding 80 150 Output: Urine 275 Other: Voiding Method Indwelling Catheter Indwelling Catheter Indwelling Catheter # Bowel Movements 1 - Exam GENERAL DESCRIPTION: An elderly male lying in bed in no distress RESPIRATORY SYSTEM: Unlabored breathing , decreased breath sounds at bases HEART: S1 S2 regular rate and rhythm , ABDOMEN: Soft , no tenderness EXTREMITIES: No edema feet - Labs CBC & Chem 7: 11/25/24 06:13 11/25/24 06:13 Labs: Abnormal Lab Results - Last 24 Hours (Table) 11/25/24 11/25/24 11/25/24 Range/Units 05:54 06:13 06:13 MCHC 30.2 L (31.0-37.0) g/dL Sodium 151 H (137-145) mmol/L Chloride 117 H (98-107) mmol/L BUN 25 H (9-20) mg/dL Glucose 154 H (74-99) mg/dL POC Glucose (mg/dL) 149 H (70-110) mg/dL 11/25/24 11/25/24 Range/Units 11:15 16:02 MCHC (31.0-37.0) g/dL Sodium (137-145) mmol/L Chloride (98-107) mmol/L BUN (9-20) mg/dL Glucose (74-99) mg/dL POC Glucose (mg/dL) 185 H 211 H (70-110) mg/dL Microbiology - Last 24 Hours (Table) 11/23/24 16:14 Blood Culture - Preliminary Blood 11/23/24 16:14 Urine Culture - Preliminary Urine,Voided Gram Neg Bacilli Assessment and Plan (1) Sepsis Current Visit: Yes Status: Acute Code(s): A41.9 - SEPSIS, UNSPECIFIED ORGANISM SNOMED Code(s): 93944935 (2) Catheter-associated urinary tract infection Current Visit: No Status: Acute Code(s): T83.511A - I/I REACT D/T INDWELLING URETHRAL CATHETER, INIT; N39.0 - URINARY TRACT INFECTION, SITE NOT SPECIFIED SNOMED Code(s): 145623007 (3) Pneumonia Current Visit: No Status: Acute Code(s): J18.9 - PNEUMONIA, UNSPECIFIED ORG ANISM SNOMED Code(s): 459974199 Plan: 1patient presented to hospital with sepsis in this patient who did have fever tachycardia elevated white count meeting criteria for SIRS source is likely catheter assisted UTI and possible component of pneumonia likely gram-negative keeping in mind the patient has been in halfway resident 2patient with multiple antibiotic ALLERGIES that would limit the number of antibiotic safe to use 3patient did have improvement the fever pattern white count normalized urine is growing gram-negative blood culture have been negative so far to continue with the cefepime while waiting for the culture to finalize Dictation was produced using etaskr dictation software. please excuse any grammatical, word or spelling errors.
[2024-11-26 00:06] LABS: Glucose,Whole Blood 176 mg/dL (70-110)
[2024-11-26 06:04] LABS: Glucose,Whole Blood 183 mg/dL (70-110)
[2024-11-26 08:11] LABS: Anion Gap 11 mmol/L; Blood Urea Nitrogen 35 mg/dL (9-20); Carbon Dioxide 25 mmol/L (22-30); Chloride 117 mmol/L (98-107); Glucose 198 mg/dL (74-99); Potassium 4.4 mmol/L (3.5-5.1); Sodium 153 mmol/L (137-145)
[2024-11-26 08:12] LABS: African American GFR (CKD) >90 (>60 ml/min/1.73 sqM); Calcium 8.4 mg/dL (8.4-10.2); Non-African American GFR(CKD) 84 (>60 ml/min/1.73 sqM)
[2024-11-26] MEDS: ACETYLCYSTEINE 800 MG/4 ML VIAL INHALATION SCH (09:03)
[2024-11-26] MEDS ORDERED: DEXTROSE 50% SYRINGE 50 ML IVP PRN ×2 (10:47)
[2024-11-26 11:29] LABS: Glucose,Whole Blood 172 mg/dL (70-110)
[2024-11-26 12:48] VITALS: BMI 25.9
[2024-11-26] MEDS: LOSARTAN 25 MG TAB PO SCH (13:23)
[2024-11-26] MEDS: DEXTROSE 5% IN WATER 1,000 ML IV SCH (13:24)
[2024-11-26] MEDS: INSULIN LISPRO (HumaLOG) 100 UNIT/ML 10 mL VL SQ SCH (13:24)
--- NOTE | 2024-11-26 14:10 | P.PN ---
Subjective Progress Note Date: 11/26/24 Hospital Course: 64-year-old male with a past medical history significant for multiple sclerosis, non-verbal at baseline, functional quadriplegia, chronic indwelling Stein catheter, recurrent catheter associated UTI, seizure disorder, PEG tube dependent presented with fever. In the ER, BP 158/82, TX 59 bpm, RR 34, 93% on 3 L nasal cannula, 100.1 F. WBC 15.1, hemoglobin 17.2, platelets 276, sodium 154, potassium 3.9, chloride 118, CO2 21, BUN 34, creatinine 0.89, glucose 123, troponin x 1: 0.087; UA large LE; Cepheid negative. EKG showed sinus tachycardia with ventricular rate 118 bpm, TX 144 ms, QTc 362 ms, no ST segment changes. CXR showed low lung volumes with generalized hazy appearance which could represent atelectasis versus pulmonary edema. Patient was given bronchodilators, IVF, Cefepime, Rocephin and Ofirmev and admitted for further workup and management. ID, pulmonology, cardiology consulted. Pending CT showing LLL patchy opacities, left hip fracture with ossification, nonobstructive left renal stone. UCx growing GNB. Pro-Sherman also elevated. Maintained on Cefepime 2g IV TID. Subjective: Patient seen and examined at bedside. No acute events overnight. Pertinent positives and negatives as discussed above, a complete review of systems was performed and all other systems are negative. Vitals Signs Reviewed. General: non toxic, no distress, appears at stated age Derm: warm, dry Head: atraumatic, normocephalic, symmetric, thursh Eyes: EOMI, no lid lag, anicteric sclera Mouth: no lip lesion, mucus membranes moist Cardiovascular: S1S2 tachy, no murmur Lungs: rhonchi bilaterally, no rales , no accessory muscle use Abdominal: distended, nontender to palpation, no guarding, PEG in place Ext: no gross muscle atrophy, 1+ pitting LE edema, no contractures Neuro: no focal neuro deficits Psych: Nonverbal Data Reviewed Today: Pertinent Labs: Sodium 153, creatinine 0.95, blood sugars range between 1 72-1 83 Imaging: Echocardiogram report reviewed, shows LVEF 35 to 40% Assessment and Plan: Sepsis likely secondary to PNA versus catheter associated UTI: Procal 0.27. Bledsoe CT concerning for LLL PNA possibly aspiration. Continue Zosyn 3.75 g IV TID. DuoNeb TID schduled. Aspiration precautions. Elevate HOB. Follow final UCx + BCx. Urine growing Proteus. Telemetry monitoring. Pulmonary and ID on board. Acute hypoxic respiratory failure secondary to Aspiration PNA: Bronchodilators and antibiotics as above. Mucormyst 200 mg INH QID. SoluMedrol 40 mg IV TID. Mucinex 1200 mg PEG BID. Pulmonary on board. NSTEMI type II: Likely due to above. Troponins flat. ASA 81 mg PEG QD. Metoprolol 50 mg PEG BID. Cardiology on board. Systolic cardiomyopathy: Unknown if ischemic or nonischemic, cardiology following Hypernatremia with prerenal azotemia: Patient was initially on D5 water which improved sodium, will switch to half-normal saline, continue to worsen again. Currently sodium of 153. Increased free water flushes. Restarted on D5 water at 75 cc an hour, repeat BMP later this afternoon Oral thrush: Diflucan 200 mg PEG QD. Seizure disorder: Carbamazepine 100 mg PEG TID. Lacosamide 150 mg PEG BID. Constipation: Lactulose 20 g PEG TID. Miralax 17g PEG QD. Dulcolax 10 mg RECTAL QD PRN. Hypertension: Metoprolol as above. Started on losartan 12.5 daily Multiple sclerosis: Amantadine 100 mg PEG QD. Dietitian consulted. DVT ppx: Lovenox Code status: Full code Anticipated discharge place: Pending clinical course Anticipated discharge time: Pending clinical course Objective - Vital Signs Vital signs: Vital Signs Temp 98.4 F 11/26/24 08:00 Pulse 96 11/26/24 12:35 Resp 20 11/26/24 08:00 BP 147/73 11/26/24 08:00 Pulse Ox 99 11/26/24 08:00 FiO2 Intake & Output 11/25/24 11/26/24 11/26/24 18:59 06:59 18:59 Intake Total 225 900 Output Total 375 Balance 225 525 Weight 90 kg 87 kg 87 kg Intake: Tube Feeding 225 900 Output: Urine 375 Other: Voiding Method Indwelling Catheter Indwelling Catheter Indwelling Catheter # Bowel Movements 1 - Labs CBC & Chem 7: 11/25/24 06:13 11/26/24 06:48 Labs: Abnormal Lab Results - Last 24 Hours (Table) 11/25/24 11/26/24 11/26/24 Range/Units 16:02 00:03 06:02 Sodium (137-145) mmol/L Chloride (98-107) mmol/L BUN (9-20) mg/dL Glucose (74-99) mg/dL POC Glucose (mg/dL) 211 H 176 H 183 H (70-110) mg/dL 11/26/24 11/26/24 Range/Units 06:48 11:28 Sodium 153 H (137-145) mmol/L Chloride 117 H (98-107) mmol/L BUN 35 H (9-20) mg/dL Glucose 198 H (74-99) mg/dL POC Glucose (mg/dL) 172 H (70-110) mg/dL Microbiology - Last 24 Hours (Table) 11/23/24 16:14 Blood Culture - Preliminary Blood 11/23/24 16:14 Urine Culture - Final Urine,Voided Proteus mirabilis
--- NOTE | 2024-11-26 14:26 | P.PN ---
Subjective Progress Note Date: 11/26/24 Reason for Consult (text): Abnormal troponin History of present illness: This is a 64-year-old male with past medical history of DVT, GERD, hypertension, seizure disorder, multiple sclerosis, paraplegia, neurogenic bladder with chronic Stein catheter, dysphagia with G-tube, multiple infections including pneumonia and UTI. Patient is nonverbal. We have been asked to evaluate the patient for elevated troponin. Blood pressure 153/91, heart rate 52, pulse ox 90% on 3 L nasal cannula. Patient has been started on IV antibiotics and IV Solu-Medrol. -EKG: Sinus rhythm, poor quality. -Chest x-ray: Low lung volumes with generalized hazy appearance could represent atelectasis versus pulmonary edema. -CT chest and abdomen without contrast revealed limited exam. No acute intraabdominal process. Left lower lobe patchy airspace opacity concerning for pneumonia. Partial visualization of left hip fracture with surrounding hypertrophic ossification. Punctate nonobstructive left renal calculus. -Laboratory studies: WBC initially 15.1 now 7.3, hemoglobin 15.3. Sodium 151, potassium 4.2, BUN 25 creatinine 0.74. Troponin 0.087, 0.1 and 0.094. Pr ocalcitonin 0.27. C. difficile toxin negative. Cepheid viral panel not detected. Urinalysis large amount of leukoesterase RBCs 80, WBCs 128. -Home cardiac medications: Aspirin 81 mg daily, metoprolol tartrate 50 mg twice daily. -Echocardiogram performed 10/20/2023 revealed EF 40 to 45%. Technically limited study as patient was uncooperative. 11/26 Patient seen and examined. Patient can answer know that he does not have chest pain. But patient is mostly nonverbal. Blood pressure 147/73, heart rate 94, pulse ox 99% on 3 L nasal cannula. Repeat blood work reveals sodium 153, potassium 4.4, BUN 35 creatinine 0.95. Echocardiogram reveals EF of 35 to 40%, moderately reduced global left ventricular systolic function. Mild mitral regurgitation, mild tricuspid regurgitation. Mild aortic dilatation at the level of the sinuses of Valsalva. Physical examination: Gen: This is a 64-year-old male in no acute respiratory distress VS: reviewed HEENT: Head is atraumatic, normocephalic. Pupils equal, round. Sclerae is anicteric. NECK: Supple. No JVD. LUNGS: Clear to auscultation. No wheezes or rhonchi. No intercostal retractions. HEART: Regular rate and rhythm. No murmur. ABDOMEN: Soft No tenderness. EXTREMITIES: No pedal edema. No calf tenderness. NEUROLOGICAL: Patient is awake. Assessment: Elevated troponin, type II FL Left lower lobe pneumonia Stein catheter associated UTI Hypernatremia MS Dysphagia with G-tube Seizure disorder Dementia Plan: Continue patient on: Aspirin 81 mg daily, metoprolol tartrate 50 mg twice daily Add losartan 12.5 mg daily Patient is not a candidate for aggressive intervention. No further cardiac workup at this time Cardiology will sign off this case and follow on an as-needed basis. Please reconsult for any new concerns. Patient may follow-up in the office in one to 2 weeks. Nurse practitioner note has been reviewed, I agree with documented findings and plan of care. Patient was seen and examined. Objective - Vital Signs Vital signs: Vital Signs Temp 98.4 F 11/26/24 08:00 Pulse 94 11/26/24 09:21 Resp 20 11/26/24 08:00 BP 147/73 11/26/24 08:00 Pulse Ox 99 11/26/24 08:00 FiO2 Intake & Output 11/25/24 11/26/24 11/26/24 18:59 06:59 18:59 Intake Total 225 900 Output Total 375 Balance 225 525 Weight 90 kg 87 kg Intake: Tube Feeding 225 900 Output: Urine 375 Other: Voiding Method Indwelling Catheter Indwelling Catheter Indwelling Catheter # Bowel Movements 1 - Labs CBC & Chem 7: 11/25/24 06:13 11/26/24 06:48 Labs: Abnormal Lab Results - Last 24 Hours (Table) 11/25/24 11/25/24 11/26/24 Range/Units 11:15 16:02 00:03 Sodium (137-145) mmol/L Chloride (98-107) mmol/L BUN (9-20) mg/dL Glucose (74-99) mg/dL POC Glucose (mg/dL) 185 H 211 H 176 H (70-110) mg/dL 11/26/24 11/26/24 Range/Units 06:02 06:48 Sodium 153 H (137-145) mmol/L Chloride 117 H (98-107) mmol/L BUN 35 H (9-20) mg/dL Glucose 198 H (74-99) mg/dL POC Glucose (mg/dL) 183 H (70-110) mg/dL Microbiology - Last 24 Hours (Table) 11/23/24 16:14 Blood Culture - Preliminary Blood 11/23/24 16:14 Urine Culture - Final Urine,Voided Proteus mirabilis
--- NOTE | 2024-11-26 16:16 | P.PN ---
Subjective Progress Note Date: 11/26/24 Principal diagnosis: Reason for follow-up is catheter associated UTI/pneumonia Patient is a 64-year-old male with a past medical history significant for MS in this patient has been bedbound did have a chronic indwelling catheter and multiple admission to hospital for UTI and pneumonia patient has been brought into the hospital for evaluation of fever and concern for UTI/pneumonia. On today's evaluation that is 11/26/2024,the patient is afebrile this morning patient is breathing comfortably 3 L current oxygen patient is awake but not verbal no vomiting diarrhea and the change reported by the nursing staff patient cannot provide any history. Patient did have a creatinine 0.95 urine is growing Proteus Mirabella's blood culture have been negative so far Objective - Vital Signs Vital signs: Vital Signs Temp 98.4 F 11/26/24 08:00 Pulse 94 11/26/24 09:21 Resp 20 11/26/24 08:00 BP 147/73 11/26/24 08:00 Pulse Ox 99 11/26/24 08:00 FiO2 Intake & Output 11/25/24 11/26/24 11/26/24 18:59 06:59 18:59 Intake Total 225 900 Output Total 375 Balance 225 525 Weight 90 kg 87 kg Intake: Tube Feeding 225 900 Output: Urine 375 Other: Voiding Method Indwelling Catheter Indwelling Catheter Indwelling Catheter # Bowel Movements 1 - Exam GENERAL DESCRIPTION: An elderly male lying in bed in no distress RESPIRATORY SYSTEM: Unlabored breathing , decreased breath sounds at bases HEART: S1 S2 regular rate and rhythm , ABDOMEN: Soft , no tenderness EXTREMITIES: No edema feet - Labs CBC & Chem 7: 11/25/24 06:13 11/26/24 06:48 Labs: Abnormal Lab Results - Last 24 Hours (Table) 11/25/24 11/26/24 11/26/24 Range/Units 16:02 00:03 06:02 Sodium (137-145) mmol/L Chloride (98-107) mmol/L BUN (9-20) mg/dL Glucose (74-99) mg/dL POC Glucose (mg/dL) 211 H 176 H 183 H (70-110) mg/dL 11/26/24 11/26/24 Range/Units 06:48 11:28 Sodium 153 H (137-145) mmol/L Chloride 117 H (98-107) mmol/L BUN 35 H (9-20) mg/dL Glucose 198 H (74-99) mg/dL POC Glucose (mg/dL) 172 H (70-110) mg/dL Microbiology - Last 24 Hours (Table) 11/23/24 16:14 Blood Culture - Preliminary Blood 11/23/24 16:14 Urine Culture - Final Urine,Voided Proteus mirabilis Assessment and Plan (1) Sepsis Current Visit: Yes Status: Acute Code(s): A41.9 - SEPSIS, UNSPECIFIED ORGANISM SNOMED Code(s): 84525586 (2) Catheter-associated urinary tract infection Current Visit: No Status: Acute Code(s): T83.511A - I/I REACT D/T INDWELLING URETHRAL CATHETER, INIT; N39.0 - URINARY TRACT INFECTION, SITE NOT SPECIFIED SNOMED Code(s): 642327426 (3) Pneumonia Current Visit: No Status: Acute Code(s): J18.9 - PNEUMONIA, UNSPECIFIED ORGANISM SNOMED Code(s): 920212703 Plan: 1patient presented to hospital with sepsis in this patient who did have fever tachycardia elevated white count meeting criteria for SIRS source is likely cat heter assisted UTI and possible component of pneumonia likely gram-negative keeping in mind the patient has been in [facility] resident 2patient with multiple antibiotic ALLERGIES that would limit the number of antibiotic safe to use 3patient did have improvement the fever pattern white count normalized urine is growing Proteus that is sensitive to ceftriaxone patient is currently cefepime to continue transition to oral antibiotics on discharge Dictation was produced using [employer] dictation software. please excuse any grammatical, word or spelling errors. Time with Patient: Less than 30
--- NOTE | 2024-11-26 16:21 | P.PN ---
Subjective Progress Note Date: 11/26/24 Patient is a 64-year-old male with past medical history significant for multiple sclerosis, seizure disorder, paraplegia, neurogenic bladder with chronic indwelling urinary catheter, dysphagia with G-tube, DVT, among other debilitating conditions. Patient was sent in from residential with fevers on 11/23/2024. Patient is nonverbal, I believe this is baseline. Workup in the emergency department including a urinalysis with reflex to culture positive for gram-negative bacilli. Currently on cefepime, and infectious disease is consulted. There is also concern for possible pneumonia. CT of the chest, abdomen and pelvis did not show any acute intra-abdominal process, however, did show a left lower lobe patchy airspace opacity. Partial visualization of left hip fracture with surrounding heterotopic ossification. CBC: WBC count 15.1, hemoglobin 17.2, hematocrit 54.7, platelets 276. Most recent BMP includes a sodium 146, potassium 3.8, chloride 115, serum bicarb 20, BUN 29, creatinine 0.76, glucose 135. Troponins 0.87, 0.1, and 0.094 respectively. NT proBNP 985. Procalcitonin level 0.27. Preliminary blood cultures show no growth at 24 hours. Viral screen was negative for influenza, RSV, COVID. Patient currently being evaluated on the cardiac stepdown floor. Appears lethargic, does not offer any information or follow commands. He is on 3 L/min nasal cannula. He has a congested and weak cough. Coarse rhonchi heard bilaterally. Has a PEG tube with continuous enteral nutrition, 1.5 Sherman tube infusing at 20 cc/h and every 4 hours 30 mL flushes. Goal rate is 75 cc/h. Also normal saline is infusing at 20 cc/h. Current vital signs: Temperature 98.1 F, heart rate 112 bpm, blood pressure 129/74 mmHg, nontachypneic, SpO2 reading 97% on 3 L/min nasal cannula. The patient is seen today November 26, 2024 in follow-up on the regular medical floor. He remains quite weak and debilitated. Maintaining O2 saturations in the mid 90s on 3 L/min per nasal cannula. He is afebrile. Hemodynamically stable. Echocardiogram reveals impaired left ventricular systolic function with an ejection fraction of 35 to 40%. Urine cultures positive for Proteus mirabilis. Blood culture pending. Sodium 153. Potassium 4.4. Bicarb 25. BUN 35. Creatinine 0.95. Glucose 198. He has been initiated on D5W at 75 mL/h. Lovenox for DVT prophylaxis. Remains on DuoNeb inhalations, Mucomyst inhalations, steroids and Mucinex. Remains on antibiotics in the form of Zosyn. Scopolamine patch in place. Unable to perform a flutter valve or incentive spirometer appropriately. Objective - Vital Signs Vital signs: Vital Signs Temp 98.3 F 11/26/24 12:00 Pulse 94 11/26/24 14:00 Resp 22 11/26/24 14:00 BP 126/79 11/26/24 12:00 Pulse Ox 97 11/26/24 12:00 FiO2 Intake & Output 11/25/24 11/26/24 11/26/24 18:59 06:59 18:59 Intake Total 225 900 Output Total 375 Balance 225 525 Weight 90 kg 87 kg 87 kg Intake: Tube Feeding 225 900 Output: Urine 375 Other: Voiding Method Indwelling Catheter Indwelling Catheter Indwelling Catheter # Bowel Movements 1 - Exam GENERAL EXAM: Lethargic, debilitated 64-year-old male, on 3 L/min nasal cannula. Has a weak and congested cough. Does not follow commands. HEAD: Normocephalic and atraumatic EYES: Normal reaction of pupils, equal size. NOSE: Clear with pink turbinates. THROAT: No erythema or exudates. NECK: No masses, no JVD. CHEST: No chest wall deformity. LUNGS: Equal air entry with coarse rhonchi heard bilaterally. CVS: S1 and S2 normal with no audible murmur, regular rhythm. No extra heart sounds ABDOMEN: No hepatosplenomegaly, active bowel sounds, no guarding or rigidity. PEG tube noted with continuous enteral nutrition at 20 mL/h. SPINE: No scoliosis or deformity SKIN: No rashes CENTRAL NERVOUS SYSTEM: Difficult to assess, tone is normal in all 4 e xtremities. EXTREMITIES: There is no peripheral edema, clubbing, or cyanosis. Peripheral pulses are intact. - Labs CBC & Chem 7: 11/25/24 06:13 11/26/24 06:48 Labs: Abnormal Lab Results - Last 24 Hours (Table) 11/26/24 11/26/24 11/26/24 Range/Units 00:03 06:02 06:48 Sodium 153 H (137-145) mmol/L Chloride 117 H (98-107) mmol/L BUN 35 H (9-20) mg/dL Glucose 198 H (74-99) mg/dL POC Glucose (mg/dL) 176 H 183 H (70-110) mg/dL 11/26/24 Range/Units 11:28 Sodium (137-145) mmol/L Chloride (98-107) mmol/L BUN (9-20) mg/dL Glucose (74-99) mg/dL POC Glucose (mg/dL) 172 H (70-110) mg/dL Microbiology - Last 24 Hours (Table) 11/23/24 16:14 Blood Culture - Preliminary Blood 11/23/24 16:14 Urine Culture - Final Urine,Voided Proteus mirabilis Assessment and Plan Assessment: Acute hypoxemic respiratory failure, CT of the chest, abdomen, pelvis demonstrating a left lower lobe patchy airspace opacity concerning for possible community-acquired pneumonia, procalcitonin 0.27 Urinary tract infection, urine culture positive for Proteus mirabilis currently on Zosyn Acute febrile illness secondary to above, resolved Acute leukocytosis secondary to above, resolved Hyperchloremic hypernatremia Prerenal azotemia Elevated troponins, likely type II ND History of multiple sclerosis History of dysphagia, with PEG tube and enteral nutrition History of neurogenic bladder with chronic indwelling urinary catheter and frequent urinary tract infections History of seizure disorder History of dementia Poor overall functional performance based on the above-mentioned multiple comorbidities Plan: The patient was seen and evaluated Labs and medications reviewed Urine culture positive for Proteus mirabilis Continued on Zosyn Continued on nutritional support D5W at 75 mL/h Continued on bronchodilators, steroids Lovenox for DVT prophylaxis Overall prognosis remains poor Recommend DNR CODE STATUS We will continue to follow I have personally seen and examined the patient, performed the documentation and the assessment and plan as written. Number of minutes spent on the visit: 10 Dictation was produced using [employer] dictation software. Please excuse any grammatical, word or spelling errors.
[2024-11-26 16:55] LABS: Glucose,Whole Blood 192 mg/dL (70-110)
[2024-11-26 17:28] LABS: African American GFR (CKD) >90 (>60 ml/min/1.73 sqM); Anion Gap 14 mmol/L; Blood Urea Nitrogen 37 mg/dL (9-20); Calcium 8.9 mg/dL (8.4-10.2); Carbon Dioxide 17 mmol/L (22-30); Chloride 120 mmol/L (98-107); Glucose 225 mg/dL (74-99); Non-African American GFR(CKD) >90 (>60 ml/min/1.73 sqM); Sodium 151 mmol/L (137-145)
[2024-11-26 17:32] LABS: Potassium 4.1 mmol/L (3.5-5.1)
[2024-11-26] MEDS: SCOPOLAMINE 1 MG/72 HR PATCH TRANSDERM SCH (17:42)
--- NOTE | 2024-11-26 19:48 | XR ---
EXAMINATION TYPE: XR KUB portable DATE OF EXAM: 11/26/2024 6:17 PM COMPARISON: CT from 2 days earlier. CLINICAL INDICATION: Male, 64 years old with history of abdominal distention, TECHNIQUE: 2 supine KUB images of the abdomen are obtained. FINDINGS: Suboptimal study due to large body habitus and portable technique. Persistent gaseous promi nent colonic loops throughout the abdomen and pelvis. Some paucity of small bowel gas redemonstrated. Chronic deformity to the bilateral hips is again seen. Persistent scoliotic curvature and multilevel spurring in the thoracolumbar spine. IMPRESSION: Overall nonspecific but favor nonobstructive bowel gas pattern. [facility], , 11/26/2024 7:45 PM
[2024-11-27 00:14] LABS: Glucose,Whole Blood 227 mg/dL (70-110)
--- NOTE | 2024-11-27 05:47 | XR ---
EXAM: XR Chest, 1 View CLINICAL HISTORY: ITS.REASON XR Reason: increased chest congestion TECHNIQUE: Frontal view of the chest. COMPARISON: X-ray dated 11/23/2024. FINDINGS: Lungs: Linear densities likely representing atelectasis are seen within the mid lungs bilaterally. Lungs are symmetrically mildly hypoinflated. Pleural space: Unremarkable. No pneumothorax. Heart: Mild enlargement of the cardiac silhouette. Mediastinum: Unremarkable. Normal mediastinal contour. Bones/joints: Unremarkable. No acute fracture. IMPRESSION: No acute findings in the chest.
[2024-11-27 05:57] LABS: Glucose,Whole Blood 118 mg/dL (70-110)
[2024-11-27 09:22] LABS: Basophils % (A) 0 %; Eosinophils % (A) 0 %; HCT 54.1 % (39.0-53.0); HGB 15.7 gm/dL (13.0-17.5); Hypochromasia Marked; Lymphocytes # (A) 0.5 k/uL (1.0-4.8); Lymphocytes % (A) 5 %; MCH 28.1 pg (25.0-35.0); MCHC 29.1 g/dL (31.0-37.0); MCV 96.7 fL (80.0-100.0); Mean Platelet Volume 9.7; Monocytes # (A) 0.4 k/uL (0-1.0); Monocytes % (A) 4 %; Neutrophils # (A) 8.9 k/uL (1.3-7.7); Neutrophils % (A) 90 %; Platelet Count 272 k/uL (150-450); RDW 14.7 % (11.5-15.5); WBC 9.9 k/uL (3.8-10.6)
[2024-11-27 09:38] LABS: ALT 34 U/L (4-49); AST 30 U/L (17-59); African American GFR (CKD) >90 (>60 ml/min/1.73 sqM); Albumin 3.8 g/dL (3.5-5.0); Alkaline Phosphatase 83 U/L (38-126); Anion Gap 14 mmol/L; Blood Urea Nitrogen 36 mg/dL (9-20); Calcium 8.9 mg/dL (8.4-10.2); Carbon Dioxide 21 mmol/L (22-30); Chloride 116 mmol/L (98-107); Glucose 150 mg/dL (74-99); Non-African American GFR(CKD) >90 (>60 ml/min/1.73 sqM); Potassium 4.2 mmol/L (3.5-5.1); Sodium 151 mmol/L (137-145); Total Bilirubin 0.6 mg/dL (0.2-1.3); Total Protein 7.4 g/dL (6.3-8.2)
[2024-11-27 11:21] LABS: Glucose,Whole Blood 155 mg/dL (70-110)
--- NOTE | 2024-11-27 13:05 | P.PN ---
Subjective Progress Note Date: 11/27/24 Hospital Course: 64-year-old male with a past medical history significant for multiple sclerosis, non-verbal at baseline, functional quadriplegia, chronic indwelling Stein catheter, recurrent catheter associated UTI, seizure disorder, PEG tube dependent presented with fever. In the ER, BP 158/82, UT 59 bpm, RR 34, 93% on 3 L nasal cannula, 100.1 F. WBC 15.1, hemoglobin 17.2, platelets 276, sodium 154, potassium 3.9, chloride 118, CO2 21, BUN 34, creatinine 0.89, glucose 123, troponin x 1: 0.087; UA large LE; Cepheid negative. EKG showed sinus tachycardia with ventricular rate 118 bpm, UT 144 ms, QTc 362 ms, no ST segment changes. CXR showed low lung volumes with generalized hazy appearance which could represent atelectasis versus pulmonary edema. Patient was given bronchodilators, IVF, Cefepime, Rocephin and Ofirmev and admitted for further workup and management. ID, pulmonology, cardiology consulted. Pending CT showing LLL patchy opacities, left hip fracture with ossification, nonobstructive left renal stone. UCx growing GNB. Pro-Sherman also elevated. Maintained on Cefepime 2g IV TID. Subjective: Patient seen and examined at bedside. No acute events overnight. Pertinent positives and negatives as discussed above, a complete review of systems was performed and all other systems are negative. Vitals Signs Reviewed. General: non toxic, no distress, appears at stated age Derm: warm, dry Head: atraumatic, normocephalic, symmetric, thursh Eyes: EOMI, no lid lag, anicteric sclera Mouth: no lip lesion, mucus membranes moist Cardiovascular: S1S2 tachy, no murmur Lungs: rhonchi bilaterally, no rales , no accessory muscle use Abdominal: distended, nontender to palpation, no guarding, PEG in place Ext: no gross muscle atrophy, 1+ pitting LE edema, no contractures Neuro: no focal neuro deficits Psych: Nonverbal Data Reviewed Today: Pertinent Labs: WBC 9.9, hemoglobin 15.7, creatinine 0.81, sodium 151, bicarb 21, blood sugars range between 1 18-1 55 Imaging: Chest x-ray independently interpreted, shows linear densities bilateral Assessment and Plan: Sepsis likely secondary to PNA versus catheter associated UTI: Procal 0.27. Bledsoe CT concerning for LLL PNA possibly aspiration. Continue Zosyn 3.75 g IV TID. DuoNeb TID schduled. Aspiration precautions. Elevate HOB. Follow final UCx + BCx. Urine growing Proteus. Telemetry monitoring. Pulmonary and ID on board. Acute hypoxic respiratory failure secondary to Aspiration PNA: Bronchodilators and antibiotics as above. Mucormyst 200 mg INH QID. SoluMedrol 40 mg IV TID. Mucinex 1200 mg PEG BID. Pulmonary on board. NSTEMI type II: Likely due to above. Troponins flat. ASA 81 mg PEG QD. Metoprolol 50 mg PEG BID. Cardiology on board. Systolic cardiomyopathy: Unknown if ischemic or nonischemic, cardiology following Hypernatremia with prerenal azotemia: Increased free water flushes. Continue on D5 water at 75 cc an hour, repeat BMP tomorrow Oral thrush: Diflucan 200 mg PEG QD. Seizure disorder: Carbamazepine 100 mg PEG TID. Lacosamide 150 mg PEG BID. Constipation: Lactulose 20 g PEG TID. Miralax 17g PEG QD. Dulcolax 10 mg RECTAL QD PRN. Hypertension: Metoprolol as above. Continue on losartan 12.5 daily Multiple sclerosis: Amantadine 100 mg PEG QD. Dietitian consulted. DVT ppx: Lovenox Code status: Full code Anticipated discharge place: Pending clinical course Anticipated discharge time: Pending clinical course Objective - Vital Signs Vital signs: Vital Signs Temp 98.5 F 11/27/24 11:58 Pulse 86 11/27/24 11:58 Resp 22 11/27/24 11:58 BP 142/85 11/27/24 11:58 Pulse Ox 97 11/27/24 11:58 FiO2 Intake & Output 11/26/24 11/27/24 11/27/24 18:59 06:59 18:59 Intake Total 1690 0 Output Total 900 200 Balance 790 -200 Weight 87 kg 87 kg Intake: Intake, IV Titration 925 Amount Dextrose 5% in Water 1, 825 000 ml @ 75 mls/hr IV . [id number] [facility] Rx#:[id number] Piperacillin-Tazobactam 3 100 .375 gm In Sodium Chloride 0.9% 100 ml @ 25 mls/hr IVPB Q8HR [facility] Rx# :[id number] Oral 0 Tube Feeding 675 Other 90 Output: Urine 900 200 Other: Voiding Method Indwelling Catheter Indwelling Catheter Indwelling Catheter # Bowel Movements 1 1 - Labs CBC & Chem 7: 11/27/24 08:41 11/27/24 08:41 Labs: Abnormal Lab Results - Last 24 Hours (Table) 11/26/24 11/26/24 11/27/24 Range/Units 16:53 17:02 00:11 Hct (39.0-53.0) % MCHC (31.0-37.0) g/dL Neutrophils # (1.3-7.7) k/uL Lymphocytes # (1.0-4.8) k/uL Sodium 151 H (137-145) mmol/L Chloride 120 H (98-107) mmol/L Carbon Dioxide 17 L (22-30) mmol/L BUN 37 H (9-20) mg/dL Glucose 225 H (74-99) mg/dL POC Glucose (mg/dL) 192 H 227 H (70-110) mg/dL 11/27/24 11/27/24 11/27/24 Range/Units 05:56 08:41 08:41 Hct 54.1 H (39.0-53.0) % MCHC 29.1 L (31.0-37.0) g/dL Neutrophils # 8.9 H (1.3-7.7) k/uL Lymphocytes # 0.5 L (1.0-4.8) k/uL Sodium 151 H (137-145) mmol/L Chloride 116 H (98-107) mmol/L Carbon Dioxide 21 L (22-30) mmol/L BUN 36 H (9-20) mg/dL Glucose 150 H (74-99) mg/dL POC Glucose (mg/dL) 118 H (70-110) mg/dL 11/27/24 Range/Units 11:19 Hct (39.0-53.0) % MCHC (31.0-37.0) g/dL Neutrophils # (1.3-7.7) k/uL Lymphocytes # (1.0-4.8) k/uL Sodium (137-145) mmol/L Chloride (98-107) mmol/L Carbon Dioxide (22-30) mmol/L BUN (9-20) mg/dL Glucose (74-99) mg/dL POC Glucose (mg/dL) 155 H (70-110) mg/dL Microbiology - Last 24 Hours (Table) 11/23/24 16:14 Blood Culture - Preliminary Blood
--- NOTE | 2024-11-27 14:33 | P.PN ---
Subjective Progress Note Date: 11/27/24 Principal diagnosis: Acute hypoxic respiratory failure, acute urinary tract infection, and left lower lobe pneumonia Patient is a 64-year-old male with past medical history significant for multiple sclerosis, seizure disorder, paraplegia, neurogenic bladder with chronic indwell ing urinary catheter, dysphagia with G-tube, DVT, among other debilitating conditions. Patient was sent in from [facility] with fevers on 11/23/2024. Patient is nonverbal, I believe this is baseline. Workup in the emergency department including a urinalysis with reflex to culture positive for gram- negative bacilli. Currently on cefepime, and infectious disease is consulted. There is also concern for possible pneumonia. CT of the chest, abdomen and pelvis did not show any acute intra-abdominal process, however, did show a left lower lobe patchy airspace opacity. Partial visualization of left hip fracture with surrounding heterotopic ossification. CBC: WBC count 15.1, hemoglobin 17.2, hematocrit 54.7, platelets 276. Most recent BMP includes a sodium 146, potassium 3.8, chloride 115, serum bicarb 20, BUN 29, creatinine 0.76, glucose 135. Troponins 0.87, 0.1, and 0.094 respectively. NT proBNP 985. Procalcitonin level 0.27. Preliminary blood cultures show no growth at 24 hours. Viral screen was negative for influenza, RSV, COVID. Patient currently being evaluated on the cardiac stepdown floor. Appears lethargic, does not offer any information or follow commands. He is on 3 L/min nasal cannula. He has a congested and weak cough. Coarse rhonchi heard bilaterally. Has a PEG tube with continuous enteral nutrition, 1.5 Sherman tube infusing at 20 cc/h and every 4 hours 30 mL flushes. Goal rate is 75 cc/h. Also normal saline is infusing at 20 cc/h. Current vital signs: Temperature 98.1 F, heart rate 112 bpm, blood pressure 129/74 mmHg, nontachypneic, SpO2 reading 97% on 3 L/min nasal cannula. The patient is seen today November 26, 2024 in follow-up on the regular medical floor. He remains quite weak and debilitated. Maintaining O2 saturations in the mid 90s on 3 L/min per nasal cannula. He is afebrile. Hemodynamically stable. Echocardiogram reveals impaired left ventricular systolic function with an ejection fraction of 35 to 40%. Urine cultures positive for Proteus mirabilis. Blood culture pending. Sodium 153. Potassium 4.4. Bicarb 25. BUN 35. Creatinine 0.95. Glucose 198. He has been initiated on D5W at 75 mL/h. Lovenox for DVT prophylaxis. Remains on DuoNeb inhalations, Mucomyst inhalations, steroids and Mucinex. Remains on antibiotics in the form of Zosyn. Scopolamine patch in place. Unable to perform a flutter valve or incentive spirometer appropriately. Patient was seen today on 11/27/2024, patient is about the same, nonverbal, patient has multiple comorbidities including quadriplegia, MS, chronic indwelling Stein catheter, we are seeing him for urinary tract infection, recurrent catheter associated TIA, he had a previous PEG tube placement and patient was noted to have pneumonia on this admission. Patient is on ant ibiotics, not doing great, nonverbal, and does not respond to any stimuli. WBC count today is 9.9 hemoglobin 15.7 sodium is 151 potassium 4.2 BUN is 36 creatinine 0.81 patient remains on Zosyn Objective - Vital Signs Vital signs: Vital Signs Temp 98.5 F 11/27/24 11:58 Pulse 86 11/27/24 11:58 Resp 22 11/27/24 11:58 BP 142/85 11/27/24 11:58 Pulse Ox 97 11/27/24 11:58 FiO2 Intake & Output 11/26/24 11/27/24 11/27/24 18:59 06:59 18:59 Intake Total 1690 0 Output Total 900 200 Balance 790 -200 Weight 87 kg 87 kg Intake: Intake, IV Titration 925 Amount Dextrose 5% in Water 1, 825 000 ml @ 75 mls/hr IV . [id number] [facility] Rx#:[id number] Piperacillin-Tazobactam 3 100 .375 gm In Sodium Chloride 0.9% 100 ml @ 25 mls/hr IVPB Q8HR [facility] Rx# :[id number] Oral 0 Tube Feeding 675 Other 90 Output: Urine 900 200 Other: Voiding Method Indwelling Catheter Indwelling Catheter Indwelling Catheter # Bowel Movements 1 1 - Exam GENERAL EXAM: Lethargic, debilitated 64-year-old male, on 3 L nasal cannula HEAD: Normocephalic and atraumatic EYES: Normal reaction of pupils, equal size. NOSE: Clear with pink turbinates. THROAT: No erythema or exudates. NECK: No masses, no JVD. CHEST: No chest wall deformity. LUNGS: Equal air entry with coarse rhonchi heard bilaterally. CVS: S1 and S2 normal with no audible murmur, regular rhythm. No extra heart sounds ABDOMEN: No hepatosplenomegaly, active bowel sounds, no guarding or rigidity. PEG tube noted with continuous enteral nutrition at 20 mL/h. SKIN: No rashes CENTRAL NERVOUS SYSTEM: Difficult to assess, tone is normal in all 4 extremities. EXTREMITIES: There is no peripheral edema, clubbing, or cyanosis. Peripheral pulses are intact. - Labs CBC & Chem 7: 11/27/24 08:41 11/27/24 08:41 Labs: Abnormal Lab Results - Last 24 Hours (Table) 11/26/24 11/26/24 11/27/24 Range/Units 16:53 17:02 00:11 Hct (39.0-53.0) % MCHC (31.0-37.0) g/dL Neutrophils # (1.3-7.7) k/uL Lymphocytes # (1.0-4.8) k/uL Sodium 151 H (137-145) mmol/L Chloride 120 H (98-107) mmol/L Carbon Dioxide 17 L (22-30) mmol/L BUN 37 H (9-20) mg/dL Glucose 225 H (74-99) mg/dL POC Glucose (mg/dL) 192 H 227 H (70-110) mg/dL 11/27/24 11/27/24 11/27/24 Range/Units 05:56 08:41 08:41 Hct 54.1 H (39.0-53.0) % MCHC 29.1 L (31.0-37.0) g/dL Neutrophils # 8.9 H (1.3-7.7) k/uL Lymphocytes # 0.5 L (1.0-4.8) k/uL Sodium 151 H (137-145) mmol/L Chloride 116 H (98-107) mmol/L Carbon Dioxide 21 L (22-30) mmol/L BUN 36 H (9-20) mg/dL Glucose 150 H (74-99) mg/dL POC Glucose (mg/dL) 118 H (70-110) mg/dL 11/27/24 Range/Units 11:19 Hct (39.0-53.0) % MCHC (31.0-37.0) g/dL Neutrophils # (1.3-7.7) k/uL Lymphocytes # (1.0-4.8) k/uL Sodium (137-145) mmol/L Chloride (98-107) mmol/L Carbon Dioxide (22-30) mmol/L BUN (9-20) mg/dL Glucose (74-99) mg/dL POC Glucose (mg/dL) 155 H (70-110) mg/dL Microbiology - Last 24 Hours (Table) 11/23/24 16:14 Blood Culture - Preliminary Blood Assessment and Plan Assessment: Impression: Acute hypoxemic respiratory failure, with left lower lobe pneumonia, likely community-acquired Urinary tract infection, urine culture positive for Proteus mirabilis currently on Zosyn Acute febrile illness secondary to above, resolved Acute leukocytosis secondary to above, resolved Hyperchloremic hypernatremia Prerenal azotemia Elevated troponins, likely type II [place] History of multiple sclerosis History of dysphagia, with PEG tube and enteral nutrition History of neurogenic bladder with chronic indwelling urinary catheter and frequent urinary tract infections History of seizure disorder History of dementia Poor overall functional performance based on the above-mentioned multiple comorbidities Recommendation: Continue antibiotics/Zosyn Continue oxygen and titrate accordingly Continue D5W and monitor electrolytes specifically sodium Continue bronchodilators and steroids Continue DVT prophylaxis Overall prognosis is extremely poor Should consider discussing CODE STATUS with family. Strongly recommend DNR CODE STATUS. Patient has multiple comorbidities and again prognosis extremely poor. Will continue to follow Time with Patient: Less than 30
[2024-11-27 16:33] LABS: Glucose,Whole Blood 195 mg/dL (70-110)
[2024-11-28 00:05] LABS: Glucose,Whole Blood 175 mg/dL (70-110)
[2024-11-28 06:13] LABS: Glucose,Whole Blood 197 mg/dL (70-110)
--- NOTE | 2024-11-28 08:15 | P.PN ---
Subjective Progress Note Date: 11/27/24 Principal diagnosis: Reason for follow-up is catheter associated UTI/pneumonia Patient is a 64-year-old male with a past medical history significant for MS in this patient has been bedbound did have a chronic indwelling catheter and multiple admission to hospital for UTI and pneumonia patient has been brought into the hospital for evaluation of fever and concern for UTI/pneumonia. On today's evaluation that is 11/27/2024,the patient remains to be afebrile, patient is on 2 L nasal cannula supplemental oxygen and seem to be breathing comfortably no distress he is awake but nonverbal could not provide any history no vomiting or diarrhea has been reported. The patient white count is 9.9, creatinine 0.81 blood culture remains to be negative Objective - Vital Signs Vital signs: Vital Signs Temp 98.5 F 11/27/24 11:58 Pulse 86 11/27/24 11:58 Resp 22 11/27/24 11:58 BP 142/85 11/27/24 11:58 Pulse Ox 97 11/27/24 11:58 FiO2 Intake & Output 11/26/24 11/27/24 11/27/24 18:59 06:59 18:59 Intake Total 1690 0 Output Total 900 200 Balance 790 -200 Weight 87 kg 87 kg Intake: Intake, IV Titration 925 Amount Dextrose 5% in Water 1, 825 000 ml @ 75 mls/hr IV . [id number] [facility] Rx#:[id number] Piperacillin-Tazobactam 3 100 .375 gm In Sodium Chloride 0.9% 100 ml @ 25 mls/hr IVPB Q8HR [facility] Rx# :[id number] Oral 0 Tube Feeding 675 Other 90 Output: Urine 900 200 Other: Voiding Method Indwelling Catheter Indwelling Catheter Indwelling Catheter # Bowel Movements 1 1 - Exam GENERAL DESCRIPTION: An elderly male lying in bed in no distress RESPIRATORY SYSTEM: Unlabored breathing , decreased breath sounds at bases HEART: S1 S2 regular rate and rhythm , ABDOMEN: Soft , no tenderness EXTREMITIES: No edema feet - Labs CBC & Chem 7: 11/27/24 08:41 11/27/24 08:41 Labs: Abnormal Lab Results - Last 24 Hours (Table) 11/26/24 11/26/24 11/27/24 Range/Units 16:53 17:02 00:11 Hct (39.0-53.0) % MCHC (31.0-37.0) g/dL Neutrophils # (1.3-7.7) k/uL Lymphocytes # (1.0-4.8) k/uL Sodium 151 H (137-145) mmol/L Chloride 120 H (98-107) mmol/L Carbon Dioxide 17 L (22-30) mmol/L BUN 37 H (9-20) mg/dL Glucose 225 H (74-99) mg/dL POC Glucose (mg/dL) 192 H 227 H (70-110) mg/dL 11/27/24 11/27/24 11/27/24 Range/Units 05:56 08:41 08:41 Hct 54.1 H (39.0-53.0) % MCHC 29.1 L (31.0-37.0) g/dL Neutrophils # 8.9 H (1.3-7.7) k/uL Lymphocytes # 0.5 L (1.0-4.8) k/uL Sodium 151 H (137-145) mmol/L Chloride 116 H (98-107) mmol/L Carbon Dioxide 21 L (22-30) mmol/L BUN 36 H (9-20) mg/dL Glucose 150 H (74-99) mg/dL POC Glucose (mg/dL) 118 H (70-110) mg/dL 11/27/24 Range/Units 11:19 Hct (39.0-53.0) % MCHC (31.0-37.0) g/dL Neutrophils # (1.3-7.7) k/uL Lymphocytes # (1.0-4.8) k/uL Sodium (137-145) mmol/L Chloride (98-107) mmol/L Carbon Dioxide (22-30) mmol/L BUN (9-20) mg/dL Glucose (74-99) mg/dL POC Glucose (mg/dL) 155 H (70-110) mg/dL Microbiology - Last 24 Hours (Table) 11/23/24 16:14 Blood Culture - Preliminary Blood Assessment and Plan (1) Sepsis Current Visit: Yes Status: Acute Code(s): A41.9 - SEPSIS, UNSPECIFIED ORGANISM SNOMED Code(s): 56544561 (2) Catheter-associated urinary tract infection Current Visit: No Status: Acute Code(s): T83.511A - I/I REACT D/T INDWELLING URETHRAL CATHETER, INIT; N39.0 - URINARY TRACT INFECTION, SITE NOT SPECIFIED SNOMED Code(s): 678649629 (3) Pneumonia Current Visit: No Status: Acute Code(s): J18.9 - PNEUMONIA, UNSPECIFIED ORGANISM SNOMED Code(s): 924281892 Plan: 1patient presented to hospital with sepsis in this patient who did have fever tachycardia elevated white count meeting criteria for SIRS source is likely catheter assisted UTI and possible component of pneumonia likely gram-negative keeping in mind the patient has been in [facility] resident 2patient with multiple antibiotic ALLERGIES that would limit the number of antibiotic safe to use 3patient did have improvement the fever pattern white count normalized urine is growing Proteus that is sensitive to ceftriaxone and blood culture has been negative 4patient is currently being treated cefepime with a plan to finish therapy with oral Ceftin on discharge Dictation was produced using Free[employer] dictation software. please excuse any grammatical, word or spelling errors. Time with Patient: Less than 30
[2024-11-28 08:43] LABS: African American GFR (CKD) >90 (>60 ml/min/1.73 sqM); Anion Gap 7 mmol/L; Blood Urea Nitrogen 35 mg/dL (9-20); Calcium 8.2 mg/dL (8.4-10.2); Carbon Dioxide 22 mmol/L (22-30); Chloride 112 mmol/L (98-107); Glucose 175 mg/dL (74-99); Non-African American GFR(CKD) >90 (>60 ml/min/1.73 sqM); Potassium 4.1 mmol/L (3.5-5.1); Sodium 141 mmol/L (137-145)
[2024-11-28 11:54] LABS: Glucose,Whole Blood 165 mg/dL (70-110)
--- NOTE | 2024-11-28 13:51 | P.PN ---
Subjective Progress Note Date: 11/28/24 Hospital Course: 64-year-old male with a past medical history significant for multiple sclerosis, non-verbal at baseline, functional quadriplegia, chronic indwelling Stein catheter, recurrent catheter associated UTI, seizure disorder, PEG tube dependent presented with fever. In the ER, BP 158/82, AK 59 bpm, RR 34, 93% on 3 L nasal cannula, 100.1 F. WBC 15.1, hemoglobin 17.2, platelets 276, sodium 154, potassium 3.9, chloride 118, CO2 21, BUN 34, creatinine 0.89, glucose 123, troponin x 1: 0.087; UA large LE; Cepheid negative. EKG showed sinus tachycardia with ventricular rate 118 bpm, AK 144 ms, QTc 362 ms, no ST segment changes. CXR showed low lung volumes with generalized hazy appearance which could represent atelectasis versus pulmonary edema. Patient was given bronchodilators, IVF, Cefepime, Rocephin and Ofirmev and admitted for further workup and management. ID, pulmonology, cardiology consulted. Pending CT showing LLL patchy opacities, left hip fracture with ossification, nonobstructive left renal stone. UCx growing GNB. Pro-Sherman also elevated. Maintained on Zosyn. Subjective: Patient seen and examined at bedside. No acute events overnight. Pertinent positives and negatives as discussed above, a complete review of systems was performed and all other systems are negative. Vitals Signs Reviewed. General: non toxic, no distress, appears at stated age Derm: warm, dry Head: atraumatic, normocephalic, symmetric, thursh Eyes: EOMI, no lid lag, anicteric sclera Mouth: no lip lesion, mucus membranes moist Cardiovascular: S1S2 tachy, no murmur Lungs: rhonchi bilaterally, no rales , no accessory muscle use Abdominal: distended, nontender to palpation, no guarding, PEG in place Ext: no gross muscle atrophy, 1+ pitting LE edema, no contractures Neuro: no focal neuro deficits Psych: Nonverbal Data Reviewed Today: Pertinent Labs: Sodium 141, bicarb 22, creatinine 0.63, blood sugars range between 1 75-1 97 Imaging: Chest x-ray independently interpreted, shows linear densities bilateral Assessment and Plan: Sepsis likely secondary to PNA versus catheter associated UTI: Procal 0.27. Bledsoe CT concerning for LLL PNA possibly aspiration. Continue Zosyn 3.75 g IV TID. DuoNeb TID schduled. Aspiration precautions. Elevate HOB. Follow final UCx + BCx. Urine growing Proteus. Telemetry monitoring. Pulmonary and ID on board. Plan for oral Ceftin at the time of discharge. Acute hypoxic respiratory failure secondary to Aspiration PNA: Bronchodilators and antibiotics as above. Mucormyst 200 mg INH QID. Mucinex 1200 mg PEG BID. Pulmonary on board. Will change IV steroids to oral NSTEMI type II: Likely due to above. Troponins flat. ASA 81 mg PEG QD. Met oprolol 50 mg PEG BID. Cardiology on board. Systolic cardiomyopathy: Unknown if ischemic or nonischemic, cardiology following Hypernatremia with prerenal azotemia: Resolved, continue free water flushes Oral thrush: Diflucan 200 mg PEG QD. Seizure disorder: Carbamazepine 100 mg PEG TID. Lacosamide 150 mg PEG BID. Constipation: Lactulose 20 g PEG TID. Miralax 17g PEG QD. Dulcolax 10 mg RECTAL QD PRN. Hypertension: Metoprolol as above. Continue on losartan 12.5 daily Multiple sclerosis: Amantadine 100 mg PEG QD. Dietitian consulted. DVT ppx: Lovenox Code status: Full code Anticipated discharge place: Pending clinical course Anticipated discharge time: Pending clinical course Objective - Vital Signs Vital signs: Vital Signs Temp 98.4 F 11/28/24 11:33 Pulse 91 11/28/24 11:33 Resp 20 11/28/24 11:33 BP 147/76 11/28/24 11:33 Pulse Ox 93 L 11/28/24 11:33 FiO2 Intake & Output 11/27/24 11/28/24 11/28/24 18:59 06:59 18:59 Intake Total 0 0 Output Total 400 300 550 Balance -400 -300 -550 Weight 87 kg 87 kg Intake: Oral 0 0 Output: Urine 400 300 550 Other: Voiding Method Indwelling Catheter Indwelling Catheter Indwelling Catheter # Bowel Movements 1 1 3 - Labs CBC & Chem 7: 11/27/24 08:41 11/28/24 08:07 Labs: Abnormal Lab Results - Last 24 Hours (Table) 11/27/24 11/28/24 11/28/24 Range/Units 16:31 00:03 06:11 Chloride (98-107) mmol/L BUN (9-20) mg/dL Creatinine (0.66-1.25) mg/dL Glucose (74-99) mg/dL POC Glucose (mg/dL) 195 H 175 H 197 H (70-110) mg/dL Calcium (8.4-10.2) mg/dL 11/28/24 11/28/24 Range/Units 08:07 11:53 Chloride 112 H (98-107) mmol/L BUN 35 H (9-20) mg/dL Creatinine 0.63 L (0.66-1.25) mg/dL Glucose 175 H (74-99) mg/dL POC Glucose (mg/dL) 165 H (70-110) mg/dL Calcium 8.2 L (8.4-10.2) mg/dL
[2024-11-28 16:18] LABS: Glucose,Whole Blood 126 mg/dL (70-110)
--- NOTE | 2024-11-28 16:19 | P.PN ---
Subjective Progress Note Date: 11/28/24 Principal diagnosis: Acute hypoxic respiratory failure, acute urinary tract infection, and left lower lobe pneumonia Patient is a 64-year-old male with past medical history significant for multiple sclerosis, seizure disorder, paraplegia, neurogenic bladder with chronic indwell ing urinary catheter, dysphagia with G-tube, DVT, among other debilitating conditions. Patient was sent in from group home with fevers on 11/23/2024. Patient is nonverbal, I believe this is baseline. Workup in the emergency department including a urinalysis with reflex to culture positive for gram- negative bacilli. Currently on cefepime, and infectious disease is consulted. There is also concern for possible pneumonia. CT of the chest, abdomen and pelvis did not show any acute intra-abdominal process, however, did show a left lower lobe patchy airspace opacity. Partial visualization of left hip fracture with surrounding heterotopic ossification. CBC: WBC count 15.1, hemoglobin 17.2, hematocrit 54.7, platelets 276. Most recent BMP includes a sodium 146, potassium 3.8, chloride 115, serum bicarb 20, BUN 29, creatinine 0.76, glucose 135. Troponins 0.87, 0.1, and 0.094 respectively. NT proBNP 985. Procalcitonin level 0.27. Preliminary blood cultures show no growth at 24 hours. Viral screen was negative for influenza, RSV, COVID. Patient currently being evaluated on the cardiac stepdown floor. Appears lethargic, does not offer any information or follow commands. He is on 3 L/min nasal cannula. He has a congested and weak cough. Coarse rhonchi heard bilaterally. Has a PEG tube with continuous enteral nutrition, 1.5 Sherman tube infusing at 20 cc/h and every 4 hours 30 mL flushes. Goal rate is 75 cc/h. Also normal saline is infusing at 20 cc/h. Current vital signs: Temperature 98.1 F, heart rate 112 bpm, blood pressure 129/74 mmHg, nontachypneic, SpO2 reading 97% on 3 L/min nasal cannula. The patient is seen today November 26, 2024 in follow-up on the regular medical floor. He remains quite weak and debilitated. Maintaining O2 saturations in the mid 90s on 3 L/min per nasal cannula. He is afebrile. Hemodynamically stable. Echocardiogram reveals impaired left ventricular systolic function with an ejection fraction of 35 to 40%. Urine cultures positive for Proteus mirabilis. Blood culture pending. Sodium 153. Potassium 4.4. Bicarb 25. BUN 35. Creatinine 0.95. Glucose 198. He has been initiated on D5W at 75 mL/h. Lovenox for DVT prophylaxis. Remains on DuoNeb inhalations, Mucomyst inhalations, steroids and Mucinex. Remains on antibiotics in the form of Zosyn. Scopolamine patch in place. Unable to perform a flutter valve or incentive spirometer appropriately. Patient was seen today on 11/27/2024, patient is about the same, nonverbal, patient has multiple comorbidities including quadriplegia, MS, chronic indwelling Stein catheter, we are seeing him for urinary tract infection, recurrent catheter associated TIA, he had a previous PEG tube placement and patient was noted to have pneumonia on this admission. Patient is on ant ibiotics, not doing great, nonverbal, and does not respond to any stimuli. WBC count today is 9.9 hemoglobin 15.7 sodium is 151 potassium 4.2 BUN is 36 creatinine 0.81 patient remains on Zosyn Patient was seen today on 11/28/2024, patient is about the same, not much of a change since admission, remains nonverbal, patient has multiple comorbidities as noted above. Remains on antibiotics as per infectious disease on the case, he is on Zosyn. Objective - Vital Signs Vital signs: Vital Signs Temp 97.9 F 11/28/24 15:55 Pulse 92 11/28/24 16:11 Resp 20 11/28/24 15:55 BP 141/88 11/28/24 15:55 Pulse Ox 96 11/28/24 15:55 FiO2 Intake & Output 11/27/24 11/28/24 11/28/24 18:59 06:59 18:59 Intake Total 0 0 Output Total 400 300 925 Balance -400 -300 -925 Weight 87 kg 87 kg Intake: Oral 0 0 Output: Urine 400 300 925 Other: Voiding Method Indwelling Catheter Indwelling Catheter Indwelling Catheter # Bowel Movements 1 1 3 - Exam GENERAL EXAM: Lethargic, debilitated 64-year-old male, on 2 L nasal cannula O2 sat 96% HEAD: Normocephalic and atraumatic EYES: Normal reaction of pupils, equal size. NOSE: Clear with pink turbinates. THROAT: No erythema or exudates. NECK: No masses, no JVD. CHEST: No chest wall deformity. LUNGS: Equal air entry with coarse rhonchi heard bilaterally. CVS: S1 and S2 normal with no audible murmur, regular rhythm. No extra heart sounds ABDOMEN: No hepatosplenomegaly, active bowel sounds, no guarding or rigidity. PEG tube noted with continuous enteral nutrition at 20 mL/h. SKIN: No rashes CENTRAL NERVOUS SYSTEM: Difficult to assess, tone is normal in all 4 extremities. EXTREMITIES: There is no peripheral edema, clubbing, or cyanosis. Peripheral pulses are intact. - Labs CBC & Chem 7: 11/27/24 08:41 11/28/24 08:07 Labs: Abnormal Lab Results - Last 24 Hours (Table) 11/27/24 11/28/24 11/28/24 Range/Units 16:31 00:03 06:11 Chloride (98-107) mmol/L BUN (9-20) mg/dL Creatinine (0.66-1.25) mg/dL Glucose (74-99) mg/dL POC Glucose (mg/dL) 195 H 175 H 197 H (70-110) mg/dL Calcium (8.4-10.2) mg/dL 11/28/24 11/28/24 Range/Units 08:07 11:53 Chloride 112 H (98-107) mmol/L BUN 35 H (9-20) mg/dL Creatinine 0.63 L (0.66-1.25) mg/dL Glucose 175 H (74-99) mg/dL POC Glucose (mg/dL) 165 H (70-110) mg/dL Calcium 8.2 L (8.4-10.2) mg/dL Assessment and Plan Assessment: Impression: Acute hypoxemic respiratory failure, with left lower lobe pneumonia, likely community-acquired Urinary tract infection, urine culture positive for Proteus mirabilis currently on Zosyn Acute febrile illness secondary to above, resolved Acute leukocytosis secondary to above, resolved Hyperchloremic hypernatremia Prerenal azotemia Elevated troponins, likely type II [place] History of multiple sclerosis History of dysphagia, with PEG tube and enteral nutrition History of neurogenic bladder with chronic indwelling urinary catheter and frequent urinary tract infectionsHistory of seizure disorder History of dementia Poor overall functional performance based on the above-mentioned multiple comorbidities Recommendation: Continue Zosyn Continue oxygen and titrate accordingly Continue bronchodilators and steroids Continue DVT prophylaxis Overall prognosis is extremely poor Should consider discussing CODE STATUS with family. Strongly recommend DNR CODE STATUS. Patient has multiple comorbidities and again prognosis extremely poor. Will continue to follow Time with Patient: Less than 30
[2024-11-29 00:23] LABS: Glucose,Whole Blood 107 mg/dL (70-110)
[2024-11-29 06:05] LABS: Glucose,Whole Blood 144 mg/dL (70-110)
[2024-11-29 07:40] LABS: African American GFR (CKD) >90 (>60 ml/min/1.73 sqM); Anion Gap 9 mmol/L; Blood Urea Nitrogen 34 mg/dL (9-20); Calcium 8.1 mg/dL (8.4-10.2); Carbon Dioxide 24 mmol/L (22-30); Chloride 110 mmol/L (98-107); Glucose 113 mg/dL (74-99); Non-African American GFR(CKD) >90 (>60 ml/min/1.73 sqM); Potassium 3.7 mmol/L (3.5-5.1); Sodium 143 mmol/L (137-145)
[2024-11-29] MEDS ORDERED: ZINC OXIDE PASTE (Z-GUARD) 1 APPLIC TOPICAL PRN (08:23)
[2024-11-29] MEDS: predniSONE 20 MG TAB PEG/G-TUBE SCH (09:04)
[2024-11-29 11:32] LABS: Glucose,Whole Blood 125 mg/dL (70-110)
--- NOTE | 2024-11-29 13:15 | P.PN ---
Subjective Progress Note Date: 11/29/24 Hospital Course: 64-year-old male with a past medical history significant for multiple sclerosis, non-verbal at baseline, functional quadriplegia, chronic indwelling Stein catheter, recurrent catheter associated UTI, seizure disorder, PEG tube dependent presented with fever. In the ER, BP 158/82, CA 59 bpm, RR 34, 93% on 3 L nasal cannula, 100.1 F. WBC 15.1, hemoglobin 17.2, platelets 276, sodium 154, potassium 3.9, chloride 118, CO2 21, BUN 34, creatinine 0.89, glucose 123, troponin x 1: 0.087; UA large LE; Cepheid negative. EKG showed sinus tachycardia with ventricular rate 118 bpm, CA 144 ms, QTc 362 ms, no ST segment changes. CXR showed low lung volumes with generalized hazy appearance which could represent atelectasis versus pulmonary edema. Patient was given bronchodilators, IVF, Cefepime, Rocephin and Ofirmev and admitted for further workup and management. ID, pulmonology, cardiology consulted. Pending CT showing LLL patchy opacities, left hip fracture with ossification, nonobstructive left renal stone. UCx growing GNB. Pro-Sherman also elevated. Maintained on Zosyn. Overall improving Subjective: Patient seen and examined at bedside. No acute events overnight. Pertinent positives and negatives as discussed above, a complete review of systems was performed and all other systems are negative. Vitals Signs Reviewed. General: non toxic, no distress, appears at stated age Derm: warm, dry Head: atraumatic, normocephalic, symmetric, thursh Eyes: EOMI, no lid lag, anicteric sclera Mouth: no lip lesion, mucus membranes moist Cardiovascular: S1S2 tachy, no murmur Lungs: rhonchi bilaterally, no rales , no accessory muscle use Abdominal: distended, nontender to palpation, no guarding, PEG in place Ext: no gross muscle atrophy, 1+ pitting LE edema, no contractures Neuro: no focal neuro deficits Psych: Nonverbal Data Reviewed Today: Pertinent Labs: Sodium 143, bicarb 24, creatinine 0.68, glucose range between 10 7-1 44 Imaging: No new imaging Assessment and Plan: Sepsis likely secondary to PNA versus catheter associated UTI: Procal 0.27. Bledsoe CT concerning for LLL PNA possibly aspiration. Continue Zosyn 3.75 g IV TID. DuoNeb TID schduled. Aspiration precautions. Elevate HOB. Follow final UCx + BCx. Urine growing Proteus. Telemetry monitoring. Pulmonary and ID on board. Plan for oral Ceftin at the time of discharge. Acute hypoxic respiratory failure secondary to Aspiration PNA: Bronchodilators and antibiotics as above. Mucormyst 200 mg INH QID. Mucinex 1200 mg PEG BID. Pulmonary on board. Will change IV steroids to oral NSTEMI type II: Likely due to above. Troponins flat. ASA 81 mg PEG QD. Metoprolol 50 mg PEG BID. Cardiology on board. Systolic cardiomyopathy: Unknown if ischemic or nonischemic, cardiology following Hypernatremia with prerenal azotemia: Resolved, continue free water flushes Oral thrush: Diflucan 200 mg PEG QD. Seizure disorder: Carbamazepine 100 mg PEG TID. Lacosamide 150 mg PEG BID. Constipation: Lactulose 20 g PEG TID. Miralax 17g PEG QD. Dulcolax 10 mg RECTAL QD PRN. Hypertension: Metoprolol as above. Continue on losartan 12.5 daily Multiple sclerosis: Amantadine 100 mg PEG QD. Dietitian consulted. DVT ppx: Lovenox Code status: Full code Anticipated discharge place: Back to [facility] Anticipated discharge time: In the next 24 to 48 hours Objective - Vital Signs Vital signs: Vital Signs Temp 98.7 F 11/29/24 09:10 Pulse 96 11/29/24 11:54 Resp 17 11/29/24 11:54 BP 125/73 11/29/24 11:54 Pulse Ox 92 L 11/29/24 11:54 FiO2 Intake & Output 11/28/24 11/29/24 11/29/24 18:59 06:59 18:59 Intake Total 0 900 600 Output Total 925 800 Balance -925 100 600 Weight 87 kg 87.5 kg Intake: Oral 0 Tube Feeding 900 600 Output: Urine 925 800 Other: Voiding Method Indwelling Catheter Indwelling Catheter Indwelling Catheter # Bowel Movements 3 1 - Labs CBC & Chem 7: 11/27/24 08:41 11/29/24 06:43 Labs: Abnormal Lab Results - Last 24 Hours (Table) 11/28/24 11/29/24 11/29/24 Range/Units 16:16 06:03 06:43 Chloride 110 H (98-107) mmol/L BUN 34 H (9-20) mg/dL Glucose 113 H (74-99) mg/dL POC Glucose (mg/dL) 126 H 144 H (70-110) mg/dL Calcium 8.1 L (8.4-10.2) mg/dL 11/29/24 Range/Units 11:31 Chloride (98-107) mmol/L BUN (9-20) mg/dL Glucose (74-99) mg/dL POC Glucose (mg/dL) 125 H (70-110) mg/dL Calcium (8.4-10.2) mg/dL Microbiology - Last 24 Hours (Table) 11/23/24 16:14 Blood Culture - Final Blood
--- NOTE | 2024-11-29 15:12 | P.PN ---
Subjective Progress Note Date: 11/29/24 Principal diagnosis: Acute hypoxic respiratory failure, acute urinary tract infection, and left lower lobe pneumonia Patient is a 64-year-old male with past medical history significant for multiple sclerosis, seizure disorder, paraplegia, neurogenic bladder with chronic indwell ing urinary catheter, dysphagia with G-tube, DVT, among other debilitating conditions. [facility] fevers on 11/23/2024. Patient is nonverbal, I believe this is baseline. Workup in the emergency department including a urinalysis with reflex to culture positive for gram- negative bacilli. Currently on cefepime, and infectious disease is consulted. There is also concern for possible pneumonia. CT of the chest, abdomen and pelvis did not show any acute intra-abdominal process, however, did show a left lower lobe patchy airspace opacity. Partial visualization of left hip fracture with surrounding heterotopic ossification. CBC: WBC count 15.1, hemoglobin 17.2, hematocrit 54.7, platelets 276. Most recent BMP includes a sodium 146, potassium 3.8, chloride 115, serum bicarb 20, BUN 29, creatinine 0.76, glucose 135. Troponins 0.87, 0.1, and 0.094 respectively. NT proBNP 985. Procalcitonin level 0.27. Preliminary blood cultures show no growth at 24 hours. Viral screen was negative for influenza, RSV, COVID. Patient currently being evaluated on the cardiac stepdown floor. Appears lethargic, does not offer any information or follow commands. He is on 3 L/min nasal cannula. He has a congested and weak cough. Coarse rhonchi heard bilaterally. Has a PEG tube with continuous enteral nutrition, 1.5 Sherman tube infusing at 20 cc/h and every 4 hours 30 mL flushes. Goal rate is 75 cc/h. Also normal saline is infusing at 20 cc/h. Current vital signs: Temperature 98.1 F, heart rate 112 bpm, blood pressure 129/74 mmHg, nontachypneic, SpO2 reading 97% on 3 L/min nasal cannula. The patient is seen today November 26, 2024 in follow-up on the regular medical floor. He remains quite weak and debilitated. Maintaining O2 saturations in the mid 90s on 3 L/min per nasal cannula. He is afebrile. Hemodynamically stable. Echocardiogram reveals impaired left ventricular systolic function with an ejection fraction of 35 to 40%. Urine cultures positive for Proteus mirabilis. Blood culture pending. Sodium 153. Potassium 4.4. Bicarb 25. BUN 35. Creatinine 0.95. Glucose 198. He has been initiated on D5W at 75 mL/h. Lovenox for DVT prophylaxis. Remains on DuoNeb inhalations, Mucomyst inhalations, steroids and Mucinex. Remains on antibiotics in the form of Zosyn. Scopolamine patch in place. Unable to perform a flutter valve or incentive spirometer appropriately. Patient was seen today on 11/27/2024, patient is about the same, nonverbal, patient has multiple comorbidities including quadriplegia, MS, chronic indwelling Stein catheter, we are seeing him for urinary tract infection, recurrent catheter associated TIA, he had a previous PEG tube placement and patient was noted to have pneumonia on this admission. Patient is on ant ibiotics, not doing great, nonverbal, and does not respond to any stimuli. WBC count today is 9.9 hemoglobin 15.7 sodium is 151 potassium 4.2 BUN is 36 creatinine 0.81 patient remains on Zosyn Patient was seen today on 11/28/2024, patient is about the same, not much of a change since admission, remains nonverbal, patient has multiple comorbidities as noted above. Remains on antibiotics as per infectious disease on the case, he is on Zosyn. Reevaluate today on 11/29/2024, patient is about the same, no changes noted. Remains nonverbal. Patient has multiple comorbidities including MS, quadripl egia, chronic indwelling Stein catheter, PEG tube placement, indwelling Stein catheter, and we are treating him mostly for pneumonia and for urinary tract infection. Not much of a change, not much of clinical improvement noted. Remains on antibiotics. Basic metabolic profile is normal renal profile is normal Objective - Vital Signs Vital signs: Vital Signs Temp 98.7 F 11/29/24 09:10 Pulse 96 11/29/24 11:54 Resp 17 11/29/24 11:54 BP 125/73 11/29/24 11:54 Pulse Ox 92 L 11/29/24 11:54 FiO2 Intake & Output 11/28/24 11/29/24 11/29/24 18:59 06:59 18:59 Intake Total 0 900 600 Output Total 925 800 Balance -925 100 600 Weight 87 kg 87.5 kg Intake: Oral 0 Tube Feeding 900 600 Output: Urine 925 800 Other: Voiding Method Indwelling Catheter Indwelling Catheter Indwelling Catheter # Bowel Movements 3 1 - Exam GENERAL EXAM: Lethargic, debilitated 64-year-old male, on 2 L nasal cannula O2 sat 92% HEAD: Normocephalic and atraumatic EYES: Normal reaction of pupils, equal size. NOSE: Clear with pink turbinates. THROAT: No erythema or exudates. NECK: No masses, no JVD. CHEST: No chest wall deformity. LUNGS: Equal air entry with coarse rhonchi heard bilaterally. CVS: S1 and S2 normal with no audible murmur, regular rhythm. No extra heart sounds ABDOMEN: No hepatosplenomegaly, active bowel sounds, no guarding or rigidity. PEG tube noted with continuous enteral nutrition at 20 mL/h. SKIN: No rashes CENTRAL NERVOUS SYSTEM: Difficult to assess, tone is normal in all 4 extremities. EXTREMITIES: There is no peripheral edema, clubbing, or cyanosis. Peripheral pulses are intact. - Labs CBC & Chem 7: 11/27/24 08:41 11/29/24 06:43 Labs: Abnormal Lab Results - Last 24 Hours (Table) 11/28/24 11/29/24 11/29/24 Range/Units 16:16 06:03 06:43 Chloride 110 H (98-107) mmol/L BUN 34 H (9-20) mg/dL Glucose 113 H (74-99) mg/dL POC Glucose (mg/dL) 126 H 144 H (70-110) mg/dL Calcium 8.1 L (8.4-10.2) mg/dL 11/29/24 Range/Units 11:31 Chloride (98-107) mmol/L BUN (9-20) mg/dL Glucose (74-99) mg/dL POC Glucose (mg/dL) 125 H (70-110) mg/dL Calcium (8.4-10.2) mg/dL Microbiology - Last 24 Hours (Table) 11/23/24 16:14 Blood Culture - Final Blood Assessment and Plan Assessment: Impression: Acute hypoxemic respiratory failure, with left lower lobe pneumonia, likely community-acquired Urinary tract infection, urine culture positive for Proteus mirabilis currently on Zosyn Acute febrile illness secondary to above, resolved Acute leukocytosis secondary to above, resolved Hyperchloremic hypernatremia Prerenal azotemia Elevated troponins, likely type II KS History of multiple sclerosis History of dysphagia, with PEG tube and enteral nutrition History of neurogenic bladder with chronic indwelling urinary catheter and frequent urinary tract infectionsHistory of seizure disorder History of dementia Poor overall functional performance based on the above-mentioned multiple comorbidities Recommendation: Continue Zosyn Continue oxygen and titrate accordingly Continue bronchodilators and steroids Continue DVT prophylaxis Should consider discussing CODE STATUS with family Long-term prognosis is extremely poor, would not be surprising if the patient ends up on mechanical ventilation considering his overall picture. Patient has multiple comorbidities Will continue to follow Time with Patient: Less than 30
--- NOTE | 2024-11-29 15:36 | P.PN ---
Subjective Progress Note Date: 11/28/24 Principal diagnosis: Reason for follow-up is catheter associated UTI/pneumonia Patient is a 64-year-old male with a past medical history significant for MS in this patient has been bedbound did have a chronic indwelling catheter and multiple admission to hospital for UTI and pneumonia patient has been brought into the hospital for evaluation of fever and concern for UTI/pneumonia. On today's evaluation that is 11/28/2024, the patient continues to be afebrile, the patient is on 2 L nasal oxygen and breathing comfortably, the Pt is awake but nonverbal cannot provide any history no diarrhea no change reported by the nursing staff. Patient did have a creatinine 0.69 no CBC was done today Objective - Vital Signs Vital signs: Vital Signs Temp 98.7 F 11/28/24 09:10 Pulse 96 11/28/24 09:10 Resp 17 11/28/24 09:10 BP 125/73 11/28/24 09:10 Pulse Ox 92 L 11/28/24 09:10 FiO2 - Exam GENERAL DESCRIPTION: An elderly male lying in bed in no distress RESPIRATORY SYSTEM: Unlabored breathing , decreased breath sounds at bases HEART: S1 S2 regular rate and rhythm , ABDOMEN: Soft , no tenderness EXTREMITIES: No edema feet - Labs CBC & Chem 7: 11/27/24 08:41 11/29/24 06:43 Labs: Abnormal Lab Results - Last 24 Hours (Table) 11/28/24 11/29/24 11/29/24 Range/Units 16:16 06:03 06:43 Chloride 110 H (98-107) mmol/L BUN 34 H (9-20) mg/dL Glucose 113 H (74-99) mg/dL POC Glucose (mg/dL) 126 H 144 H (70-110) mg/dL Calcium 8.1 L (8.4-10.2) mg/dL 11/29/24 Range/Units 11:31 Chloride (98-107) mmol/L BUN (9-20) mg/dL Glucose (74-99) mg/dL POC Glucose (mg/dL) 125 H (70-110) mg/dL Calcium (8.4-10.2) mg/dL Microbiology - Last 24 Hours (Table) 11/23/24 16:14 Blood Culture - Final Blood Assessment and Plan (1) Sepsis Current Visit: Yes Status: Acute Code(s): A41.9 - SEPSIS, UNSPECIFIED ORGANISM SNOMED Code(s): 91436323 (2) Catheter-associated urinary tract infection Current Visit: No Status: Acute Code(s): T83.511A - I/I REACT D/T INDWELLING URETHRAL CATHETER, INIT; N39.0 - URINARY TRACT INFECTION, SITE NOT SPECIFIED SNOMED Code(s): 348087778 (3) Pneumonia Current Visit: No Status: Acute Code(s): J18.9 - PNEUMONIA, UNSPECIFIED ORGANISM SNOMED Code(s): 862073712 Plan: 1patient presented to hospital with sepsis in this patient who did have fever tachycardia elevated white count meeting criteria for SIRS source is likely catheter assisted UTI and possible component of pneumonia likely gram-negative keeping in mind the patient has been in [facility] 2patient with multiple antibiotic ALLERGIES that would limit the number of antibiotic safe to use 3patient did have improvement the fever pattern white count normalized urine is growing Proteus that is sensitive to ceftriaxone and blood culture has been negative 4patient currently on Zosyn to continue while inpatient Dictation was produced using [employer] dictation software. please excuse any grammatical, word or spelling errors. Time with Patient: Less than 30
--- NOTE | 2024-11-29 15:36 | P.PN ---
Subjective Progress Note Date: 11/29/24 Principal diagnosis: Reason for follow-up is catheter associated UTI/pneumonia Patient is a 64-year-old male with a past medical history significant for MS in this patient has been bedbound did have a chronic indwelling catheter and multiple admission to hospital for UTI and pneumonia patient has been brought into the hospital for evaluation of fever and concern for UTI/pneumonia. On today's evaluation that is 11/29/2024, patient did not have any fever and patient is breathing comfortably on 2 L nasal oxygen, patient does not seem to be any distress he is awake but nonverbal cannot provide any history. Patient did have a creatinine 0.68 no CBC was done today Objective - Vital Signs Vital signs: Vital Signs Temp 98.7 F 11/29/24 09:10 Pulse 96 11/29/24 11:54 Resp 17 11/29/24 11:54 BP 125/73 11/29/24 11:54 Pulse Ox 92 L 11/29/24 11:54 FiO2 Intake & Output 11/28/24 11/29/24 11/29/24 18:59 06:59 18:59 Intake Total 0 900 600 Output Total 925 800 Balance -925 100 600 Weight 87 kg 87.5 kg Intake: Oral 0 Tube Feeding 900 600 Output: Urine 925 800 Other: Voiding Method Indwelling Catheter Indwelling Catheter Indwelling Catheter # Bowel Movements 3 1 - Exam GENERAL DESCRIPTION: An elderly male lying in bed in no distress RESPIRATORY SYSTEM: Unlabored breathing , few upper airway rhonchi HEART: S1 S2 regular rate and rhythm , ABDOMEN: Soft , no tenderness EXTREMITIES: No edema feet - Labs CBC & Chem 7: 11/27/24 08:41 11/29/24 06:43 Labs: Abnormal Lab Results - Last 24 Hours (Table) 11/28/24 11/29/24 11/29/24 Range/Units 16:16 06:03 06:43 Chloride 110 H (98-107) mmol/L BUN 34 H (9-20) mg/dL Glucose 113 H (74-99) mg/dL POC Glucose (mg/dL) 126 H 144 H (70-110) mg/dL Calcium 8.1 L (8.4-10.2) mg/dL 11/29/24 Range/Units 11:31 Chloride (98-107) mmol/L BUN (9-20) mg/dL Glucose (74-99) mg/dL POC Glucose (mg/dL) 125 H (70-110) mg/dL Calcium (8.4-10.2) mg/dL Microbiology - Last 24 Hours (Table) 11/23/24 16:14 Blood Culture - Final Blood Assessment and Plan (1) Sepsis Current Visit: Yes Status: Acute Code(s): A41.9 - SEPSIS, UNSPECIFIED ORGANISM SNOMED Code(s): 99217749 (2) Catheter-associated urinary tract infection Current Visit: No Status: Acute Code(s): T83.511A - I/I REACT D/T INDWELLING URETHRAL CATHETER, INIT; N39.0 - URINARY TRACT INFECTION, SITE NOT SPECIFIED SNOMED Code(s): 389116000 (3) Pneumonia Current Visit: No Status: Acute Code(s): J18.9 - PNEUMONIA, UNSPECIFIED ORGANISM SNOMED Code(s): 954718887 Plan: 1patient presented to hospital with sepsis in this patient who did have fever tachycardia elevated white count meeting criteria for SIRS source is likely catheter assisted UTI and possible component of pneumonia likely gram-negative keeping in mind the patient has been in [facility] resident 2patient with multiple antibiotic ALLERGIES that would limit the number of antibiotic safe to use 3patient did have improvement the fever pattern white count normalized urine is growing Proteus that is sensitive to ceftriaxone and blood culture has been negative 4patient currently being treated with Zosyn while inpatient hopefully trans ition to oral antibiotics on discharge Dictation was produced using [employer] dictation software. please excuse any grammatical, word or spelling errors. Time with Patient: Less than 30
[2024-11-29 16:38] LABS: Glucose,Whole Blood 126 mg/dL (70-110)
[2024-11-29 21:06] LABS: Glucose,Whole Blood 139 mg/dL (70-110)
[2024-11-29 23:52] LABS: Glucose,Whole Blood 119 mg/dL (70-110)
[2024-11-30 05:43] LABS: Glucose,Whole Blood 113 mg/dL (70-110)
[2024-11-30 08:04] VITALS: BP 149/77; RESP 18; TEMP 99.2
[2024-11-30 09:04] VITALS: PULSE 88
[2024-11-30 09:04] LABS: African American GFR (CKD) >90 (>60 ml/min/1.73 sqM); Anion Gap 5 mmol/L; Blood Urea Nitrogen 33 mg/dL (9-20); Calcium 8.2 mg/dL (8.4-10.2); Carbon Dioxide 27 mmol/L (22-30); Chloride 110 mmol/L (98-107); Glucose 116 mg/dL (74-99); Non-African American GFR(CKD) >90 (>60 ml/min/1.73 sqM); Potassium 4.4 mmol/L (3.5-5.1); Sodium 142 mmol/L (137-145)
[2024-11-30] MEDS: ACETAMINOPHEN TAB 325 MG TAB PEG/G-TUBE PRN (09:39)
--- NOTE | 2024-11-30 10:47 | P.DS ---
Providers Date of admission: 11/23/24 18:07 Expected date of discharge: 11/30/24 Attending physician: Nicol Oleary MD Consults: 11/23/24 18:07 Consult Physician Routine Consulting Provider: Sonal Farah Consult Reason/Comments: UTI Do you want consulting provider notified?: Yes, Notify in am 11/24/24 15:52 Consult Physician Routine Consulting Provider: Daniel Ricci Consult Reason/Comments: Trop Do you want consulting provider notified?: Yes 11/24/24 16:12 Consult Physician Routine Consulting Provider: Royal Kumar Consult Reason/Comments: Possible PNA, respiratory distress Do you want consulting provider notified?: Yes Primary care physician: DEANGELO NEUMANN MD Hospital Course: Discharge Diagnosis: Sepsis likely secondary to PNA versus catheter associated UTI Acute hypoxic respiratory failure secondary to Aspiration PNA NSTEMI type II Systolic cardiomyopathy: Unknown if ischemic or nonischemic Hypernatremia with prerenal azotemia Oral thrush Seizure disorder Constipation Hypertension Multiple sclerosis Hospital Course: 64-year-old male with a past medical history significant for multiple sclerosis, non-verbal at baseline, functional quadriplegia, chronic indwelling Stein catheter, recurrent catheter associated UTI, seizure disorder, PEG tube dependent presented with fever. In the ER, BP 158/82, NV 59 bpm, RR 34, 93% on 3 L nasal cannula, 100.1 F. WBC 15.1, hemoglobin 17.2, platelets 276, sodium 154, potassium 3.9, chloride 118, CO2 21, BUN 34, creatinine 0.89, glucose 123, troponin x 1: 0.087; UA large LE; Cepheid negative. EKG showed sinus tachycardia with ventricular rate 118 bpm, NV 144 ms, QTc 362 ms, no ST segment changes. CXR showed low lung volumes with generalized hazy appearance which could represent atelectasis versus pulmonary edema. Patient was given bronchodilators, IVF, Cefepime, Rocephin and Ofirmev and admitted for further workup and management. ID, pulmonology, cardiology consulted. Chest abdomen pelvis CT showing LLL patchy opacities, left hip fracture with ossification, nonobstructive left renal stone. UCx growing Proteus. Pro-Sherman also elevated. Patient was maintained on IV Zosyn. For NSTEMI, had echocardiogram which showed LVEF 35 to 40%. Patient may need further workup for systolic heart failure. He was also hyponatremic, now sodium has normalized. Being discharged on oral Augmentin. Patient's long-term prognosis is really poor. Patient seen and examined at bedside. Vital signs reviewed and stable. General: non toxic, no distress, appears at stated age Derm: warm, dry Head: atraumatic, normocephalic, symmetric, thursh Eyes: EOMI, no lid lag, anicteric sclera Mouth: no lip lesion, mucus membranes moist Cardiovascular: S1S2 tachy, no murmur Lungs: rhonchi bilaterally, no rales , no accessory muscle use Abdominal: distended, nontender to palpation, no guarding, PEG in place Ext: no gross muscle atrophy, 1+ pitting LE edema, no contractures Neuro: no focal neuro deficits Psych: Nonverbal A total of 36 minutes of time were spent preparing this complex discharge summary. Patient was discharged on 11/30/2024 at 1003. Patient Condition at Discharge: Stable Plan - Discharge Summary Discharge Rx Participant: No New Discharge Prescriptions: New Amoxic-Pot Clav 875-125Mg [Augmentin 875-125] 1 tab PO BID 7 Days #14 tab Losartan [Cozaar] 12.5 mg PO DAILY #0 tab Fluconazole Oral Susp [Diflucan Oral Susp] 200 mg PO DAILY 7 Days ml Continue Aspirin 81 mg PEG/G-TUBE DAILY Acetaminophen Tab [Tylenol] 650 mg PEG/G-TUBE Q4H PRN PRN Reason: Fever And/ Or Pain carBAMazepine [carBAMazepine Oral Susp] 100 mg PEG/G-TUBE TID Scopolamine [Scopolamine 1 MG/72 HR patch] 1 patch TRANSDERM Q72H Lactulose 20 gm PEG/G-TUBE TID Lacosamide [Vimpat Oral Soln] 150 mg PEG/G-TUBE BID Ipratropium-Albuterol Nebulize [Duoneb 0.5 mg-3 mg/3 ml Soln] 3 ml INHALATION RT-TID Cranberry 450mg 450 mg PEG/G-TUBE DAILY Baclofen 5 mg PEG/G-TUBE TID bisacodyL [Dulcolax] 10 mg RECTAL DAILY PRN PRN Reason: Constipation Amino Acids/Protein Hydrolys [Pro-Stat Awc Liquid] 30 ml PEG/G-TUBE BID polyethylene glycoL 3350 [Miralax] 17 gm PEG/G-TUBE DAILY #30 packet Sennosides [Senokot] 8.6 mg PEG/G-TUBE BID #60 tab Metoprolol Tartrate [Lopressor] 50 mg PEG/G-TUBE BID oxyBUTYnin chloride 5 mg PEG/G-TUBE DAILY Famotidine [Pepcid] 20 mg PEG/G-TUBE DAILY amantadine HCL [Amantadine] 100 mg PEG/G-TUBE DAILY Discharge Medication List Aspirin 81 mg PEG/G-TUBE DAILY 11/27/20 [History] Acetaminophen Tab [Tylenol] 650 mg PEG/G-TUBE Q4H PRN 06/13/21 [History] Metoprolol Tartrate [Lopressor] 50 mg PEG/G-TUBE BID 06/13/21 [History] carBAMazepine [carBAMazepine Oral Susp] 100 mg PEG/G-TUBE TID 07/02/21 [History] Lactulose 20 gm PEG/G-TUBE TID 01/03/22 [History] Scopolamine [Scopolamine 1 MG/72 HR patch] 1 patch TRANSDERM Q72H 01/03/22 [History] oxyBUTYnin chloride 5 mg PEG/G-TUBE DAILY 12/19/22 [History] Famotidine [Pepcid] 20 mg PEG/G-TUBE DAILY 07/14/23 [History] Ipratropium-Albuterol Nebulize [Duoneb 0.5 mg-3 mg/3 ml Soln] 3 ml INHALATION RT-TID 11/18/23 [History] Lacosamide [Vimpat Oral Soln] 150 mg PEG/G-TUBE BID 11/18/23 [History] Baclofen 5 mg PEG/G-TUBE TID 07/25/24 [History] Cranberry 450mg 450 mg PEG/G-TUBE DAILY 07/25/24 [History] amantadine HCL [Amantadine] 100 mg PEG/G-TUBE DAILY 07/25/24 [History] bisacodyL [Dulcolax] 10 mg RECTAL DAILY PRN 07/25/24 [History] Amino Acids/Protein Hydrolys [Pro-Stat Awc Liquid] 30 ml PEG/G-TUBE BID 10/23/24 [History] Sennosides [Senokot] 8.6 mg PEG/G-TUBE BID #60 tab 01/28/25 [Rx] polyethylene glycoL 3350 [Miralax] 17 gm PEG/G-TUBE DAILY #30 packet 10/28/24 [Rx] Amoxic-Pot Clav 875-125Mg [Augmentin 875-125] 1 tab PO BID 7 Days #14 tab 11/30/24 [Rx] Fluconazole Oral Susp [Diflucan Oral Susp] 200 mg PO DAILY 7 Days ml 11/30/24 [Rx] Losartan [Cozaar] 12.5 mg PO DAILY #0 tab 11/30/24 [Rx] Follow up Appointment(s)/Referral(s): Royal Kumar MD [STAFF PHYSICIAN] - 1 Week DEANGELO NEUMANN MD [Primary Care Provider] - 1-2 days Patient Instructions/Handouts: Bacterial Pneumonia (DC) Discharge Disposition: TRANSFER TO SNF/ECF
[2024-11-30 11:48] LABS: Glucose,Whole Blood 146 mg/dL (70-110)
--- NOTE | 2024-11-30 12:49 | P.PN ---
Subjective Progress Note Date: 11/30/24 Patient is a 64-year-old male with past medical history significant for multiple sclerosis, seizure disorder, paraplegia, neurogenic bladder with chronic indwelling urinary catheter, dysphagia with G-tube, DVT, among other debilitating conditions. [facility] in [facility] prison with fevers on 11/23/2024. Patient is nonverbal, I believe this is baseline. Workup in the emergency department including a urinalysis with reflex to culture positive for gram-negative bacilli. Currently on cefepime, and infectious disease is consulted. There is also concern for possible pneumonia. CT of the chest, abdomen and pelvis did not show any acute intra-abdominal process, however, did show a left lower lobe patchy airspace opacity. Partial visualization of left hip fracture with surrounding heterotopic ossification. CBC: WBC count 15.1, hemoglobin 17.2, hematocrit 54.7, platelets 276. Most recent BMP includes a sodium 146, potassium 3.8, chloride 115, serum bicarb 20, BUN 29, creatinine 0.76, glucose 135. Troponins 0.87, 0.1, and 0.094 respectively. NT proBNP 985. Procalcitonin level 0.27. Preliminary blood cultures show no growth at 24 hours. Viral screen was negative for influenza, RSV, COVID. Patient currently being evaluated on the cardiac stepdown floor. Appears lethargic, does not offer any information or follow commands. He is on 3 L/min nasal cannula. He has a congested and weak cough. Coarse rhonchi heard bilaterally. Has a PEG tube with continuous enteral nutrition, 1.5 Sherman tube infusing at 20 cc/h and every 4 hours 30 mL flushes. Goal rate is 75 cc/h. Also normal saline is infusing at 20 cc/h. Current vital signs: Temperature 98.1 F, heart rate 112 bpm, blood pressure 129/74 mmHg, nontachypneic, SpO2 reading 97% on 3 L/min nasal cannula. The patient is seen today November 26, 2024 in follow-up on the regular medical floor. He remains quite weak and debilitated. Maintaining O2 saturations in the mid 90s on 3 L/min per nasal cannula. He is afebrile. Hemodynamically stable. Echocardiogram reveals impaired left ventricular systolic function with an ejection fraction of 35 to 40%. Urine cultures positive for Proteus mirabilis. Blood culture pending. Sodium 153. Potassium 4.4. Bicarb 25. BUN 35. Creatinine 0.95. Glucose 198. He has been initiated on D5W at 75 mL/h. Lovenox for DVT prophylaxis. Remains on DuoNeb inhalations, Mucomyst inhalations, steroids and Mucinex. Remains on antibiotics in the form of Zosyn. Scopolamine patch in place. Unable to perform a flutter valve or incentive spirometer appropriately. The patient is seen today November 30, 2024 in follow-up on the regular medical floor. He is essentially unchanged. He is resting in bed. Eyes are open. Maintaining good O2 saturations in the mid 90s on 2 L/min per nasal cannula. Afebrile. Hemodynamically stable. Sodium 142. Potassium 4.4. Bicarb 27. BUN 33. Creatinine 0.61. Glucose 116. He remains on DuoNeb inhalations, Mucinex, prednisone. Scopolamine patch in place. Lovenox for DVT prophylaxis. He completed antibiotics for his Proteus mirabilis urinary tract infection. Objective - Vital Signs Vital signs: Vital Signs Temp 99.2 F 11/30/24 06:54 Pulse 88 11/30/24 09:13 Resp 18 11/30/24 06:54 BP 149/77 11/30/24 06:54 Pulse Ox 97 11/30/24 06:54 FiO2 Intake & Output 11/29/24 11/30/24 11/30/24 18:59 06:59 18:59 Intake Total 900 600 Output Total 550 400 Balance 350 200 Weight 98 kg Intake: Tube Feeding 900 600 Output: Urine 550 400 Other: Voiding Method Indwelling Catheter Indwelling Catheter # Bowel Movements 3 1 - Exam GENERAL EXAM: Lethargic, debilitated 64-year-old male, on 2 L/min nasal cannula. Has a weak and congested cough. Does not follow commands. HEAD: Normocephalic and atraumatic EYES: Normal reaction of pupils, equal size. NOSE: Clear with pink turbinates. THROAT: No erythema or exudates. NECK: No masses, no JVD. CHEST: No chest wall deformity. LUNGS: Equal air entry with coarse rhonchi heard bilaterally. CVS: S1 and S2 normal with no audible murmur, regular rhythm. No extra heart sounds ABDOMEN: No hepatosplenomegaly, active bowel sounds, no guarding or rigidity. PEG tube noted with continuous enteral nutrition. SPINE: No scoliosis or deformity SKIN: No rashes CENTRAL NERVOUS SYSTEM: Difficult to assess, tone is normal in all 4 extremities. EXTREMITIES: Contractures noted. There is no peripheral edema, clubbing, or cyanosis. Peripheral pulses are intact. - Labs CBC & Chem 7: 11/27/24 08:41 11/30/24 08:19 Labs: Abnormal Lab Results - Last 24 Hours (Table) 11/29/24 11/29/24 11/29/24 Range/Units 16:36 21:04 23:51 Chloride (98-107) mmol/L BUN (9-20) mg/dL Creatinine (0.66-1.25) mg/dL Glucose (74-99) mg/dL POC Glucose (mg/dL) 126 H 139 H 119 H (70-110) mg/dL Calcium (8.4-10.2) mg/dL 11/30/24 11/30/24 11/30/24 Range/Units 05:41 08:19 11:41 Chloride 110 H (98-107) mmol/L BUN 33 H (9-20) mg/dL Creatinine 0.61 L (0.66-1.25) mg/dL Glucose 116 H (74-99) mg/dL POC Glucose (mg/dL) 113 H 146 H (70-110) mg/dL Calcium 8.2 L (8.4-10.2) mg/dL Assessment and Plan Assessment: Acute hypoxemic respiratory failure, CT of the chest, abdomen, pelvis demonstrating a left lower lobe patchy airspace opacity concerning for possible community-acquired pneumonia, procalcitonin 0.27 Urinary tract infection, urine culture positive for Proteus mirabilis and completed Zosyn Acute febrile illness secondary to above, resolved Acute leukocytosis secondary to above, resolved Hyperchloremic hypernatremia Prerenal azotemia Elevated troponins, likely type II [place] History of multiple sclerosis History of dysphagia, with PEG tube and enteral nutrition History of neurogenic bladder with chronic indwelling urinary catheter and frequent urinary tract infections History of seizure disorder History of dementia Poor overall functional performance based on the above-mentioned multiple comorbidities Plan: The patient was seen and evaluated Labs and medications reviewed Continued on nutritional support Continued on bronchodilators, steroids Lovenox for DVT prophylaxis Overall prognosis remains poor Plan is to return to [facility] I have personally seen and examined the patient, performed the documentation and the assessment and plan as written. Number of minutes spent on the visit: 10 Dictation was produced using [employer] dictation software. Please excuse any grammatical, word or spelling errors.
== END 2024-11-30 12:25 | DRG 698 ==
LOC: EC 15:08 → 3SCARD 18:07 → 4SSUR 11-29 18:29
PROVIDERS: ADMIT Internal Medicine; ATTEND Internal Medicine
PROC: 05HF33Z Insertion of Infusion Device into Left Cephalic Vein, Percutaneous Approach (ICD-10-PCS; principal; 2024-11-27 09:00)
DX: T83.511A Infection and inflammatory reaction due to indwelling urethral catheter, initial encounter (principal); A41.59 Other Gram-negative sepsis; I21.A1 Myocardial infarction type 2; J11.00 Influenza due to unidentified influenza virus with unspecified type of pneumonia; J96.01 Acute respiratory failure with hypoxia; J69.0 Pneumonitis due to inhalation of food and vomit; R53.2 Functional quadriplegia; B37.0 Candidal stomatitis; F03.93 Unspecified dementia, unspecified severity, with mood disturbance; G35 Multiple sclerosis; G40.909 Epilepsy, unspecified, not intractable, without status epilepticus; F32.A Depression, unspecified; I10 Essential (primary) hypertension; I08.1 Rheumatic disorders of both mitral and tricuspid valves; I42.8 Other cardiomyopathies; E87.0 Hyperosmolality and hypernatremia; E87.1 Hypo-osmolality and hyponatremia; Z93.1 Gastrostomy status; Z11.52 Encounter for screening for COVID-19; R13.10 Dysphagia, unspecified; N39.0 Urinary tract infection, site not specified; Z87.440 Personal history of urinary (tract) infections; Y84.6 Urinary catheterization as the cause of abnormal reaction of the patient, or of later complication, without mention of misadventure at the time of the procedure; E87.8 Other disorders of electrolyte and fluid balance, not elsewhere classified; K59.09 Other constipation; N20.0 Calculus of kidney; N31.9 Neuromuscular dysfunction of bladder, unspecified; Z79.82 Long term (current) use of aspirin; Z79.899 Other long term (current) drug therapy; Z82.49 Family history of ischemic heart disease and other diseases of the circulatory system; Z86.718 Personal history of other venous thrombosis and embolism; Z88.8 Allergy status to other drugs, medicaments and biological substances; Z86.14 Personal history of Methicillin resistant Staphylococcus aureus infection; Z87.01 Personal history of pneumonia (recurrent); G50.0 Trigeminal neuralgia
CPT/HCPCS: 36410; 36415; 71045; 71046; 71250; 74018; 74176; 76937; 80048; 80053; 81001; 83036; 83605; 83880; 83930; 83935; 84145; 84300; 84484; 85025; 85027; 85610; 85730; 87040; 87077; 87086; 87186; 87324; 87636; 93005; 93306; 94640; 94667; 94760; 96361; 96365; 96366; 96367; 96372; 99291

== ENCOUNTER 2025-01-02 23:16 | Emergency (ER) | payer MEDICARE, OTHER ==
[2025-01-02 23:21] VITALS: TEMP 98.4
--- NOTE | 2025-01-03 00:12 | ED ---
General Adult HPI - General Chief complaint: Recheck/Abnormal Lab/Rx Stated complaint: UTI Time Seen by Provider: 01/02/25 23:18 Source: patient, EMS, RN notes reviewed, old records reviewed Mode of arrival: EMS - History of Present Illness Initial comments: 64-year-old male sent from the detention for evaluation. Patient nonverbal at baseline, indwelling Stein catheter, fed through PEG tube. Patient has possible pneumonia and was sent for evaluation. Uncertain if this patient is currently on antibiotics. He does have an indwelling Stein catheter with frequent urinary tract infections. No reported fever. - Related Data Home Medications Medication Instructions Recorded Confirmed Aspirin 81 mg PEG/G-TUBE DAILY 11/27/20 11/23/24 Acetaminophen Tab [Tylenol] 650 mg PEG/G-TUBE Q4H PRN 06/13/21 11/23/24 Metoprolol Tartrate [Lopressor] 50 mg PEG/G-TUBE BID 06/13/21 11/23/24 carBAMazepine [carBAMazepine Oral 100 mg PEG/G-TUBE TID 07/02/21 11/23/24 Susp] Lactulose 20 gm PEG/G-TUBE TID 01/03/22 11/23/24 Scopolamine [Scopolamine 1 MG/72 1 patch TRANSDERM Q72H 01/03/22 11/23/24 HR patch] oxyBUTYnin chloride 5 mg PEG/G-TUBE DAILY 12/19/22 11/23/24 Famotidine [Pepcid] 20 mg PEG/G-TUBE DAILY 07/14/23 11/23/24 Ipratropium-Albuterol Nebulize 3 ml INHALATION RT-TID 11/18/23 11/23/24 [Duoneb 0.5 mg-3 mg/3 ml Soln] Lacosamide [Vimpat Oral Soln] 150 mg PEG/G-TUBE BID 11/18/23 11/23/24 Baclofen 5 mg PEG/G-TUBE TID 07/25/24 11/23/24 Cranberry 450mg 450 mg PEG/G-TUBE DAILY 07/25/24 11/23/24 amantadine HCL [Amantadine] 100 mg PEG/G-TUBE DAILY 07/25/24 11/23/24 bisacodyL [Dulcolax] 10 mg RECTAL DAILY PRN 07/25/24 11/23/24 Amino Acids/Protein Hydrolys 30 ml PEG/G-TUBE BID 10/23/24 11/23/24 [Pro-Stat Awc Liquid] Previous Rx's Medication Instructions Recorded Sennosides [Senokot] 8.6 mg PEG/G-TUBE BID #60 tab 10/28/24 polyethylene glycoL 3350 [Miralax] 17 gm PEG/G-TUBE DAILY #30 packet 10/28/24 Amoxic-Pot Clav 875-125Mg 1 tab PO BID 7 Days #14 tab 11/30/24 [Augmentin 875-125] Fluconazole Oral Susp [Diflucan 200 mg PO DAILY 7 Days ml 11/30/24 Oral Susp] Losartan [Cozaar] 12.5 mg PO DAILY #0 tab 11/30/24 Levofloxacin [Levaquin] 500 mg PO DAILY 7 Days #1 tab 01/03/25 Allergies Allergy/AdvReac Type Severity Reaction Status Date / Time meropenem [From Merrem] Allergy Rash/Hives Verified 01/02/25 23:21 ceftolozane [From Zerbaxa] AdvReac Rapid Verified 01/02/25 23:21 Heart Rate tazobactam [From Zerbaxa] AdvReac Rapid Verified 01/02/25 23:21 Heart Rate Review of Systems ROS Statement: Those systems with pertinent positive or pertinent negative responses have been documented in the HPI. ROS Other: All systems not noted in ROS Statement are negative. Past Medical History Past Medical History: Deep Vein Thrombosis (DVT), GERD/Reflux, Hypertension, Musculoskeletal Disorder, Neurologic Disorder, Pneumonia, Seizure Disorder, Skin Disorder Additional Past Medical History / Comment(s): Pt diagnosed with MS at the age of 39 yrs, seizure/pneumonia/UTI with sepsis/respirtory failure/vented, cognitive impairment, sister states when he is feeling well he could speak a few words/nod head appropriately/give thumbs up/roll eyes but when ill is nonverbal, pt has dysphagia/NPO with peg tube, contractures, last seizure 07/2020, trigeminal neuralgia, dysarthria/anarthria/neurogenic bladder with IDC-UTIs/sepsis, multiple pneumonias, recent seizure-last one 07/03/20, incontinent of stool, pt has had decubitus ulcer coccyx-sister unsure of skin condition at this time, past anemia r/t heparin/epistaxiis which involved nasal packing/transfusions, DV T bilateral arms, hypoxia, oxygen at 2L/NC, L femoral head fracture History of Any Multi-Drug Resistant Organisms: ESBL, MRSA, Other MDRO Date of last positivie culture/infection: 03/09/21-MRSA; 11/23/19 ESBL-E.coli MDRO Source:: Abdomen-Peg site MRSA; Urine -ESBL Past Surgical History: Tonsillectomy Additional Past Surgical History / Comment(s): Gastrostomy, peg tube, I&D coccyx decubitius, bronchoscopy, bilateral lasik eye surgery. Past Anesthesia/Blood Transfusion Reactions: No Reported Reaction Additional Past Anesthesia/Blood Transfusion Reaction / Comment(s): Pt has received blood in past without reaction. Past Psychological History: Depression Smoking Status: Never smoker Past Alcohol Use History: None Reported Past Drug Use History: None Reported - Past Family History Father Family Medical History: Myocardial Infarction ([place]) Mother Family Medical History: Hypertension, Myocardial Infarction ([place]) Additional Family Medical History / Comment(s): Mother of a [place] at the age of 73 yrs. General Exam General appearance: alert, in no apparent distress Head exam: Present: atraumatic, normocephalic Eye exam: Present: normal appearance, PERRL Respiratory exam: Present: rhonchi (Bilateral) Cardiovascular Exam: Present: regular rate, normal rhythm GI/Abdominal exam: Present: distended. Absent: tenderness Neurological exam: Present: alert. Absent: oriented X3 Skin exam: Present: warm, dry Course Vital Signs 01/02/25 01/03/25 23:17 01:25 Temperature 98.4 F Pulse Rate 94 92 Respiratory 18 20 Rate Blood Pressure 146/99 147/112 O2 Sat by Pulse 97 96 Oximetry Medical Decision Making - Medical Decision Making Was pt. sent in by a medical professional or institution (, PA, BELT MAKER HELPER, urgent care, hospital, or detention...) When possible be specific @ -No Did you speak to anyone other than the patient for history (EMS, parent, family, police, friend...)? What history was obtained from this source @ -No Did you review nursing and triage notes (agree or disagree)? Why? @ -I reviewed and agree with nursing and triage notes Were old charts reviewed (outside hosp., previous admission, EMS record, old EKG, old radiological studies, urgent care reports/EKG's, detention records)? Report findings @ -No old charts were reviewed Differential Diagnosis corneal, upper respiratory infection, UTI EKG interpreted by me (3pts min.). @ -As above X-rays interpreted by me (1pt min.). @ -[X-ray shows a left sided infiltrate consistent with pneumonia CT interpreted by me (1pt min.). @ -None done U/S interpreted by me (1pt. min.). @ -None done What testing was considered but not performed or refused? (CT, X-rays, U/S, labs)? Why? @ -None What meds were considered but not given or refused? Why? @ -None Did you discuss the management of the patient with other professionals (professionals i.e. , PA, BELT MAKER HELPER, lab, RT, psych nurse, social media content manager, is/it project manager, teacher, flight deck officer, lead case manager)? Give summary @ -No Was smoking cessation discussed for >3mins.? @ -No Was critical care preformed (if so, how long)? @ -No Were there social determinants of health that impacted care today? How? (Homelessness, low income, unemployed, alcoholism, drug addiction, transportation, low edu. Level, literacy, decrease access to med. care, longterm, rehab)? @ -No Was there de-escalation of care discussed even if they declined (Discuss DNR or withdrawal of care, Hospice)? DNR status @ -No What co-morbidities impacted this encounter? (DM, HTN, Smoking, COPD, CAD, Cancer, CVA, ARF, Chemo, Hep., AIDS, mental health diagnosis, sleep apnea, morbid obesity)? @ -Bedbound, nonverbal, fed through PEG tube, chronic Stein Was patient admitted / discharged? Hospital course, mention meds given and route, prescriptions, significant lab abnormalities, going to OR and other pertinent info. @ -64-year-old male for evaluation. Left sided pneumonia on x-ray. Patient does have possibility of contaminated urine or urinary tract infection. Culture pending. Patient given dose of Levaquin in the emergency department. His CBC and CMP are unremarkable. Stable for discharge back to the detention. Undiagnosed new problem with uncertain prognosis? @ -No Drug Therapy requiring intensive monitoring for toxicity (Heparin, Nitro, Insulin, Cardizem)? @ -No Were any procedures done? @ -No Diagnosis/symptom? @ -Pneumonia Acute, or Chronic, or Acute on Chronic? @ -[Acute Uncomplicated (without systemic symptoms) or Complicated (systemic symptoms)? @ -Default Side effects of treatment? @ -No Exacerbation, Progression, or Severe Exacerbation? @ -No Poses a threat to life or bodily function? How? (Chest pain, [place], [place], pneumonia, PE, COPD, DKA, ARF, appy, cholecystitis, CVA, Diverticulitis, Homicidal, Suicidal, threat to staff... and all critical care pts) @ -Yes, sepsis, respiratory failure - Lab Data Result diagrams: 01/02/25 23:59 01/02/25 23:59 Lab Results 01/02/25 01/02/25 01/02/25 Range/Units 23:59 23:59 23:59 WBC 6.4 (3.8-10.6) k/uL RBC 5.11 (4.30-5.90) m/uL Hgb 13.9 (13.0-17.5) gm/dL Hct 44.1 (39.0-53.0) % MCV 86.2 D (80.0-100.0) fL MCH 27.2 (25.0-35.0) pg MCHC 31.5 (31.0-37.0) g/dL RDW 14.9 (11.5-15.5) % Plt Count 306 (150-450) k/uL MPV 8.9 Sodium 136 L (137-145) mmol/L Potassium 4.3 (3.5-5.1) mmol/L Chloride 102 (98-107) mmol/L Carbon Dioxide 25 (22-30) mmol/L Anion Gap 9 mmol/L BUN 17 (9-20) mg/dL Creatinine 0.51 L (0.66-1.25) mg/dL Est GFR (CKD-EPI)AfAm >90 (>60 ml/min/1.73 sqM) Est GFR (CKD-EPI)NonAf >90 (>60 ml/min/1.73 sqM) Glucose 96 (74-99) mg/dL Plasma Lactic Acid Taurus (0.7-2.0) mmol/L Calcium 8.8 (8.4-10.2) mg/dL Total Bilirubin 0.5 (0.2-1.3) mg/dL AST 24 (17-59) U/L ALT 21 (4-49) U/L Alkaline Phosphatase 83 (38-126) U/L Total Protein 6.8 (6.3-8.2) g/dL Albumin 3.4 L (3.5-5.0) g/dL Urine Color Yellow Urine Appearance Turbid (Clear) Urine pH 8.5 H (5.0-8.0) Ur Specific [place] 1.020 (1.001-1.035) Urine Protein 2+ H (Negative) Urine Glucose (UA) Negative (Negative) Urine Ketones Negative (Negative) Urine Blood Trace H (Negative) Urine Nitrite Negative (Negative) Urine Bilirubin Negative (Negative) Urine Urobilinogen 2.0 (<2.0) mg/dL Ur Leukocyte Esterase Large H (Negative) Urine RBC 126 H (0-5) /hpf Urine WBC 45 H (0-5) /hpf Triple Phos Crystals Moderate H (None) /hpf Urine Bacteria Moderate H (None) /hpf Urine Mucus Moderate H (None) /hpf Urine Yeast (Budding) Many H (None) /hpf /01/23 Range/Units 23:59 WBC (3.8-10.6) k/uL RBC (4.30-5.90) m/uL Hgb (13.0-17.5) gm/dL Hct (39.0-53.0) % MCV (80.0-100.0) fL MCH (25.0-35.0) pg MCHC (31.0-37.0) g/dL RDW (11.5-15.5) % Plt Count (150-450) k/uL MPV Sodium (137-145) mmol/L Potassium (3.5-5.1) mmol/L Chloride (98-107) mmol/L Carbon Dioxide (22-30) mmol/L Anion Gap mmol/L BUN (9-20) mg/dL Creatinine (0.66-1.25) mg/dL Est GFR (CKD-EPI)AfAm (>60 ml/min/1.73 sqM) Est GFR (CKD-EPI)NonAf (>60 ml/min/1.73 sqM) Glucose (74-99) mg/dL Plasma Lactic Acid Taurus 1.0 (0.7-2.0) mmol/L Calcium (8.4-10.2) mg/dL Total Bilirubin (0.2-1.3) mg/dL AST (17-59) U/L ALT (4-49) U/L Alkaline Phosphatase (38-126) U/L Total Protein (6.3-8.2) g/dL Albumin (3.5-5.0) g/dL Urine Color Urine Appearance (Clear) Urine pH (5.0-8.0) Ur Specific [place] (1.001-1.035) Urine Protein (Negative) Urine Glucose (UA) (Negative) Urine Ketones (Negative) Urine Blood (Negative) Urine Nitrite (Negative) Urine Bilirubin (Negative) Urine Urobilinogen (<2.0) mg/dL Ur Leukocyte Esterase (Negative) Urine RBC (0-5) /hpf Urine WBC (0-5) /hpf Triple Phos Crystals (None) /hpf Urine Bacteria (None) /hpf Urine Mucus (None) /hpf Urine Yeast (Budding) (None) /hpf Disposition Clinical Impression: UTI (urinary tract infection), Pneumonia Disposition: HOME SELF-CARE Condition: Fair Instructions (If sedation given, give patient instructions): Bacterial Pneumonia (ED) Prescriptions: Levofloxacin [Levaquin] 500 mg PO DAILY 7 Days #1 tab Is patient prescribed a controlled substance at d/c from ED?: No Referrals: DEANGELO NEUMANN MD [Primary Care Provider] - 1-2 days Time of Disposition: 01:28
[2025-01-03 00:38] LABS: ALT 21 U/L (4-49); AST 24 U/L (17-59); African American GFR (CKD) >90 (>60 ml/min/1.73 sqM); Albumin 3.4 g/dL (3.5-5.0); Alkaline Phosphatase 83 U/L (38-126); Anion Gap 9 mmol/L; Blood Urea Nitrogen 17 mg/dL (9-20); Calcium 8.8 mg/dL (8.4-10.2); Carbon Dioxide 25 mmol/L (22-30); Chloride 102 mmol/L (98-107); Glucose 96 mg/dL (74-99); Non-African American GFR(CKD) >90 (>60 ml/min/1.73 sqM); Potassium 4.3 mmol/L (3.5-5.1); Sodium 136 mmol/L (137-145); Total Bilirubin 0.5 mg/dL (0.2-1.3); Total Protein 6.8 g/dL (6.3-8.2)
[2025-01-03 00:56] LABS: Basophils % (A) 1 %; Eosinophils # (A) 0.3 k/uL (0-0.7); Eosinophils % (A) 5 %; HCT 44.1 % (39.0-53.0); HGB 13.9 gm/dL (13.0-17.5); Lymphocytes % (A) 16 %; MCH 27.2 pg (25.0-35.0); MCHC 31.5 g/dL (31.0-37.0); Mean Platelet Volume 8.9; Monocytes # (A) 0.8 k/uL (0-1.0); Monocytes % (A) 13 %; Neutrophils # (A) 4.1 k/uL (1.3-7.7); Neutrophils % (A) 63 %; Platelet Count 306 k/uL (150-450); RBC 5.11 m/uL (4.30-5.90); RDW 14.9 % (11.5-15.5); WBC 6.4 k/uL (3.8-10.6)
[2025-01-03 01:00] LABS: MCV 86.2 fL (80.0-100.0)
[2025-01-03 01:07] LABS: Appearance,Urine Turbid (Clear); Bacteria,Urine Moderate /hpf; Bilirubin,Urine Negative (Negative); Blood,Urine Trace (Negative); Budding Yeast,Urine Many /hpf; Color,Urine Yellow; Glucose,Urine (UA) Negative (Negative); Ketones,Urine Negative (Negative); Leukocyte Esterase,Urine Large (Negative); Mucus,Urine Moderate /hpf; Nitrite,Urine Negative (Negative); PH, Urine 8.5 (5.0-8.0); Protein,Urine 2+ (Negative); RBC,Urine 126 /hpf (0-5); Triple Phosphate Crystal,Urine Moderate /hpf; WBC,Urine 45 /hpf (0-5)
--- NOTE | 2025-01-03 01:22 | XR ---
EXAM: XR Chest, 1 View CLINICAL HISTORY: ITS.REASON XR Reason: cough TECHNIQUE: Frontal view of the chest. COMPARISON: 11/27/24 FINDINGS: Lungs: Compared to prior exam, increased density in the periphery of the left mid lung, which could represent pneumonia in the appropriate clinical setting. Generalized increased bilateral interstitial markings. Pleural space: No pleural effusion or pneumothorax. Heart: Stable cardiomegaly. Bones/joints: No acute fracture. No dislocation. IMPRESSION: 1. Compared to prior exam, increased density in the periphery of the left mid lung, which could represent pneumonia in the appropriate clinical setting. 2. Generalized increased bilateral interstitial markings. This could be related to atelectasis or atypical infection.
[2025-01-03 01:26] VITALS: RESP 20
[2025-01-03] MEDS: LEVOFLOXACIN 500MG-D5W PMX 500 MG in DEXTROSE/WATER 1 100ML.BAG IVPB STA (02:09)
[2025-01-10 01:53] VITALS: BP 151/107; PULSE 103
== END 2025-01-03 03:25 | disposition home or self-care (01) ==
LOC: EC 23:16
DX: N39.0 Urinary tract infection, site not specified (principal); J18.9 Pneumonia, unspecified organism; Z74.01 Bed confinement status; Z93.1 Gastrostomy status; Z96.0 Presence of urogenital implants; Z88.8 Allergy status to other drugs, medicaments and biological substances
CPT/HCPCS: 36415; 80053; 83605; 85025; 81001; 87086; 87077; 87186; 71045; 99284; 96365; J1956

== ENCOUNTER 2025-01-08 19:35 | Emergency (ER) | payer MEDICARE, OTHER ==
[2025-01-08 19:49] VITALS: RESP 18; TEMP 97.8
--- NOTE | 2025-01-08 20:13 | ED ---
General Adult HPI - General Chief complaint: Recheck/Abnormal Lab/Rx Stated complaint: Peg tube issue Time Seen by Provider: 01/08/25 19:43 Source: patient, EMS, RN notes reviewed Mode of arrival: EMS Limitations: physical limitation - History of Present Illness Initial comments: 64-year-old presents to the emergency department for PEG tube issues. According to the nursing facility and EMS PEG tube came out today. He is at his baseline A&O x 0. He does receive all feeding and medication through the PEG tube. According to EMS there are no other complaints at this time. - Related Data Home Medications Medication Instructions Recorded Confirmed Aspirin 81 mg PEG/G-TUBE DAILY 11/27/20 11/23/24 Acetaminophen Tab [Tylenol] 650 mg PEG/G-TUBE Q4H PRN 06/13/21 11/23/24 Metoprolol Tartrate [Lopressor] 50 mg PEG/G-TUBE BID 06/13/21 11/23/24 carBAMazepine [carBAMazepine Oral 100 mg PEG/G-TUBE TID 07/02/21 11/23/24 Susp] Lactulose 20 gm PEG/G-TUBE TID 01/03/22 11/23/24 Scopolamine [Scopolamine 1 MG/72 1 patch TRANSDERM Q72H 01/03/22 11/23/24 HR patch] oxyBUTYnin chloride 5 mg PEG/G-TUBE DAILY 12/19/22 11/23/24 Famotidine [Pepcid] 20 mg PEG/G-TUBE DAILY 07/14/23 11/23/24 Ipratropium-Albuterol Nebulize 3 ml INHALATION RT-TID 11/18/23 11/23/24 [Duoneb 0.5 mg-3 mg/3 ml Soln] Lacosamide [Vimpat Oral Soln] 150 mg PEG/G-TUBE BID 11/18/23 11/23/24 Baclofen 5 mg PEG/G-TUBE TID 07/25/24 11/23/24 Cranberry 450mg 450 mg PEG/G-TUBE DAILY 07/25/24 11/23/24 amantadine HCL [Amantadine] 100 mg PEG/G-TUBE DAILY 07/25/24 11/23/24 bisacodyL [Dulcolax] 10 mg RECTAL DAILY PRN 07/25/24 11/23/24 Amino Acids/Protein Hydrolys 30 ml PEG/G-TUBE BID 10/23/24 11/23/24 [Pro-Stat Awc Liquid] Previous Rx's Medication Instructions Recorded Sennosides [Senokot] 8.6 mg PEG/G-TUBE BID #60 tab 10/28/24 polyethylene glycoL 3350 [Miralax] 17 gm PEG/G-TUBE DAILY #30 packet 10/28/24 Amoxic-Pot Clav 875-125Mg 1 tab PO BID 7 Days #14 tab 11/30/24 [Augmentin 875-125] Fluconazole Oral Susp [Diflucan 200 mg PO DAILY 7 Days ml 11/30/24 Oral Susp] Losartan [Cozaar] 12.5 mg PO DAILY #0 tab 11/30/24 Levofloxacin [Levaquin] 500 mg PO DAILY 7 Days #1 tab 01/03/25 Allergies Allergy/AdvReac Type Severity Reaction Status Date / Time meropenem [From Merrem] Allergy Rash/Hives Verified 01/02/25 23:21 ceftolozane [From Zerbaxa] AdvReac Rapid Verified 01/02/25 23:21 Heart Rate tazobactam [From Zerbaxa] AdvReac Rapid Verified 01/02/25 23:21 Heart Rate Review of Systems ROS Statement: Those systems with pertinent positive or pertinent negative responses have been documented in the HPI. ROS Other: All systems not noted in ROS Statement are negative. Past Medical History Past Medical History: Deep Vein Thrombosis (DVT), GERD/Reflux, Hypertension, Musculoskeletal Disorder, Neurologic Disorder, Pneumonia, Seizure Disorder, Skin Disorder Additional Past Medical History / Comment(s): Pt diagnosed with MS at the age of 39 yrs, seizure/pneumonia/UTI with sepsis/respirtory failure/vented, cognitive impairment, sister states when he is feeling well he could speak a few words/nod head appropriately/give thumbs up/roll eyes but when ill is nonverbal, pt has dysphagia/NPO with peg tube, contractures, last seizure 07/2020, trigeminal neuralgia, dysarthria/anarthria/neurogenic bladder with IDC-UTIs/sepsis, multiple pneumonias, recent seizure-last one 07/03/20, incontinent of stool, pt has had decubitus ulcer coccyx-sister unsure of skin condition at this time, past anemia r/t heparin/epistaxiis which involved nasal packing/transfusions, DVT bilateral arms, hypoxia, oxygen at 2L/NC, L femoral head fracture History of Any Multi-Drug Resistant Organisms: ESBL, MRSA Date of last positivie culture/infection: 01/02/25-ESBL; 03/09/21-MRSA MDRO Source:: ESBL-urine; MRSA-abdomen/pegsite Past Surgical History: Tonsillectomy Additional Past Surgical History / Comment(s): Gastrostomy, peg tube, I&D coccyx decubitius, bronchoscopy, bilateral lasik eye surgery. Past Anesthesia/Blood Transfusion Reactions: No Reported Reaction Additional Past Anesthesia/Blood Transfusion Reaction / Comment(s): Pt has received blood in past without reaction. Past Psychological History: Depression Smoking Status: Never smoker Past Alcohol Use History: None Reported Past Drug Use History: None Reported - Past Family History Father Family Medical History: Myocardial Infarction (PA) Mother Family Medical History: Hypertension, Myocardial Infarction (PA) Additional Family Medical History / Comment(s): Mother of a PA at the age of 73 yrs. General Exam Limitations: physical limitation General appearance: alert, in no apparent distress Head exam: Present: atraumatic, normocephalic, normal inspection Eye exam: Present: normal appearance, PERRL, EOMI. Absent: scleral icterus, conjunctival injection, periorbital swelling ENT exam: Present: normal exam, mucous membranes moist Respiratory exam: Present: normal lung sounds bilaterally. Absent: respiratory distress, wheezes, rales, rhonchi, stridor Cardiovascular Exam: Present: regular rate, normal rhythm, normal heart sounds. Absent: systolic murmur, diastolic murmur, rubs, gallop, clicks GI/Abdominal exam: Present: soft, normal bowel sounds. Absent: distended, tenderness, guarding, rebound, rigid Extremities exam: Present: normal inspection, full ROM, normal capillary refill. Absent: tenderness, pedal edema, joint swelling, calf tenderness Neurological exam: Present: alert, oriented X3 Psychiatric exam: Present: normal affect, normal mood Skin exam: Present: warm, dry, intact, normal color. Absent: rash Course Vital Signs 01/08/25 01/08/25 19:44 22:42 Temperature 97.8 F Pulse Rate 88 86 Respiratory 18 18 Rate Blood Pressure 158/78 177/47 O2 Sat by Pulse 97 96 Oximetry Procedures - Feeding Tube Replacement Reason for Replacement: fell out Initial Tube Inserted: greater than 2 weeks Type of Tube: gastrostomy Use of Tube: medications and feeding Insertion Site Prior to Procedure: clean Used for Assist in Placement: stylet Verification of Placement: KUB Tube Secured by: G-tube attachment device Patient Tolerated Procedure: well Additional Comments: Lenore eMlendez Medical Decision Making - Medical Decision Making Was pt. sent in by a medical professional or institution (CECIL Ribera, NETWORKING TECHNOLOGY INSTRUCTOR, urgent care, hospital, or [place] health care facility...) When possible be specific @ -No Did you speak to anyone other than the patient for history (EMS, parent, family, police, friend...)? What history was obtained from this source @ -No Did you review nursing and triage notes (agree or disagree)? Why? @ -I reviewed and agree with nursing and triage notes Were old charts reviewed (outside hosp., previous admission, EMS record, old EKG, old radiological studies, urgent care reports/EKG's, [place] health [facility] facility records)? Report findings @ -No old charts were reviewed Differential Diagnosis (chest pain, altered mental status, abdominal pain women, abdominal pain men, vaginal bleeding, weakness, fever, dyspnea, syncope, headache, dizziness, GI bleed, back pain, seizure, CVA, palpatations, mental health, musculoskeletal)? @ -Not applicable EKG interpreted by me (3pts min.). @ -None X-rays interpreted by me (1pt min.). @ -None done CT interpreted by me (1pt min.). @ -None done U/S interpreted by me (1pt. min.). @ -None done What testing was considered but not performed or refused? (CT, X-rays, U/S, labs)? Why? @ -None What meds were considered but not given or refused? Why? @ -None Did you discuss the management of the patient with other professionals (professionals i.e. CECIL Ribera, NETWORKING TECHNOLOGY INSTRUCTOR, lab, RT, psych nurse, social sciences professor, bench tool maker, teacher, court security officer, case sealer)? Give summary @ -No Was smoking cessation discussed for >3mins.? @ -No Was critical care preformed (if so, how long)? @ -No Were there social determinants of health that impacted care today? How? (Homelessness, low income, unemployed, alcoholism, drug addiction, transportation, low edu. Level, literacy, decrease access to med. care, skilled nursing, rehab)? @ -No Was there de-escalation of care discussed even if they declined (Discuss DNR or withdrawal of care, Hospice)? DNR status @ -No What co-morbidities impacted this encounter? (DM, HTN, Smoking, COPD, CAD, Cancer, CVA, ARF, Chemo, Hep., AIDS, mental health diagnosis, sleep apnea, morbid obesity)? @ -None Was patient admitted / discharged? Hospital course, mention meds given and route, prescriptions, significant lab abnormalities, going to OR and other pertinent info. @ -Discharge. Patient presented the emergency department for evaluation of PEG tube dislodgment. The PEG tube was replaced with a 14 Indian which was determined by looking at the prior charts as the patient did not have the prior PEG tube with him. He tolerated the procedure well. He will be discharged back to his living facility. Undiagnosed new problem with uncertain prognosis? @ -No Drug Therapy requiring intensive monitoring for toxicity (Heparin, Nitro, Insulin, Cardizem)? @ -No Were any procedures done? @ -PEG tube insertion Diagnosis/symptom? @ -PEG tube complication Acute, or Chronic, or Acute on Chronic? @ -Acute Uncomplicated (without systemic symptoms) or Complicated (systemic symptoms)? @ -Uncomplicated Side effects of treatment? @ -No Exacerbation, Progression, or Severe Exacerbation? @ -No Poses a threat to life or bodily function? How? (Chest pain, USA, PA, pneumonia, PE, COPD, DKA, ARF, appy, cholecystitis, CVA, Diverticulitis, Homicidal, Suicidal, threat to staff... and all critical care pts) @ -No Disposition Clinical Impression: PEG tube malfunction Disposition: HOME SELF-CARE Condition: Stable Is patient prescribed a controlled substance at d/c from ED?: No Referrals: DEANGELO NEUMANN MD [Primary Care Provider] - 1-2 days
[2025-01-08 23:14] VITALS: BP 177/47; PULSE 86
--- NOTE | 2025-01-08 23:53 | XR ---
EXAM: XR Abdomen, 1 View CLINICAL HISTORY: ITS.REASON XR Reason: peg placement TECHNIQUE: Frontal supine view of the abdomen/pelvis. COMPARISON: No relevant prior studies available. FINDINGS: Gastrointestinal tract: Unremarkable. No dilation. Bones/joints: Unremarkable. Tubes, lines and devices: PEG tube terminates in the stomach. IMPRESSION: PEG tube terminates in the stomach.
== END 2025-01-08 23:38 | disposition home or self-care (01) ==
LOC: EC 19:35
DX: K94.23 Gastrostomy malfunction (principal); Z88.8 Allergy status to other drugs, medicaments and biological substances
CPT/HCPCS: 74018; 99284; 43762; Q9967

== ENCOUNTER 2025-02-11 07:51 | Inpatient (IN) | payer MEDICARE, OTHER ==
[2025-02-11 08:05] LABS: Glucose,Whole Blood 103 mg/dL (70-110)
[2025-02-11] MEDS: LACTATED RINGERS 1,000 ML IV ONE ×3 (08:15→11:10)
[2025-02-11] MEDS: methylPREDNISolone SOD SUCCI 125 MG/2 ML VIAL IV STA (08:18)
[2025-02-11] MEDS: ACETAMINOPHEN IV (For NPO) 1,000 MG in EMPTY BAG 1 BAG IVPB STA (08:26)
--- NOTE | 2025-02-11 08:29 | XR ---
EXAMINATION TYPE: XR chest 1V portable DATE OF EXAM: 02/11/2025 8:24 AM COMPARISON: 01/02/2025 CLINICAL INDICATION: Male, 64 years old with history of dyspnea, shortness of breath FINDINGS: Slightly lordotic positioning. Heart mildly enlarged. Diffuse interstitial opacity. Some strandy atel ectasis right lower lung. Previous patchy opacities show improvement. Old left-sided rib fracture def ormities. No sizable pleural effusion. IMPRESSION: Cardiomegaly and interstitial densities. Correlate for CHF with pulmonary vascular congestion. The ov erall appearance is not as progressed as on 01/02/2025. [facility], , 02/11/2025 8:26 AM
[2025-02-11 08:37] LABS: Partial Thromboplastin Time 23.9 sec (22.0-30.0); Prothrombin Time 11.2 sec (10.0-12.5)
[2025-02-11] MEDS ORDERED: VANCOMYCIN IV PER PHARMACY 1 EACH MISC MISCELLANE PRN (08:37)
[2025-02-11] MEDS ORDERED: PNEUMONIA PROTOCOL UTILIZED 1 EACH MISC PO PRN (08:37)
[2025-02-11 08:40] LABS: Lactic Acid, Venous 1.1 mmol/L (0.7-2.0)
[2025-02-11 08:42] LABS: ALT 30 U/L (4-49); AST 28 U/L (17-59); African American GFR (CKD) >90 (>60 ml/min/1.73 sqM); Albumin 3.3 g/dL (3.5-5.0); Alcohol <10 mg/dL; Alkaline Phosphatase 102 U/L (38-126); Anion Gap 9 mmol/L; Blood Urea Nitrogen 29 mg/dL (9-20); Calcium 8.6 mg/dL (8.4-10.2); Carbon Dioxide 21 mmol/L (22-30); Chloride 113 mmol/L (98-107); Glucose 119 mg/dL (74-99); Non-African American GFR(CKD) >90 (>60 ml/min/1.73 sqM); Potassium 4.6 mmol/L (3.5-5.1); Sodium 143 mmol/L (137-145); Total Bilirubin 0.5 mg/dL (0.2-1.3); Total Protein 6.6 g/dL (6.3-8.2)
[2025-02-11] MEDS: IPRATROPIUM-ALBUTEROL 3 ML NEB INHALATION STA (08:42)
[2025-02-11 08:53] LABS: ABG Base Excess -0.5 mmol/L; ABG HCO3 23 mmol/L (21-25); ABG PCO2 35 mmHg (35-45); ABG PH 7.43 (7.35-7.45); ABG PO2 119 mmHg (83-108); ABG TCO2 24 mmol/L (19-24); Allen Test Performed? Yes
[2025-02-11 09:01] LABS: Influenza A Not Detected (Not Detectd); Influenza B Not Detected (Not Detectd); RSV Not Detected (Not Detectd)
[2025-02-11 09:01] LABS: Basophils # (A) 0.04 10*3/uL (0.00-0.10); Basophils % (A) 0.3 %; Eosinophils # (A) 0.28 10*3/uL (0.04-0.35); HCT 44.1 % (39.6-50.0); HGB 13.8 g/dL (13.0-17.0); Immature Platelet Fraction 2.7 % (1.1-6.1); Lymphocytes # (A) 0.74 10*3/uL (0.90-5.00); Lymphocytes % (A) 5.3 %; MCH 27.4 pg (27.0-32.0); MCHC 31.3 g/dL (32.0-37.0); MCV 87.7 fL (80.0-97.0); Mean Platelet Volume 11.1 fL (9.5-12.2); Monocytes # (A) 1.26 10*3/uL (0.20-1.00); Neutrophils # (A) 11.62 10*3/uL (1.80-7.70); Neutrophils % (A) 82.9 %; Platelet Count 341 10*3/uL (140-440); RBC 5.03 10*6/uL (4.40-5.60); RDW 16.6 % (11.5-14.5); WBC 14.01 10*3/uL (4.50-10.00)
[2025-02-11] MEDS: LEVOFLOXACIN 750MG-D5W PMX 750 MG in DEXTROSE/WATER 1 150ML.BAG IVPB STA (09:27)
[2025-02-11] MEDS: LACTATED RINGERS 1,000 ML IV SCH (09:51)
--- NOTE | 2025-02-11 09:54 | CT ---
EXAMINATION TYPE: CT brain wo con DATE OF EXAM: 02/11/2025 9:28 AM COMPARISON: 07/19/2023.. CLINICAL INDICATION: Male, 64 years old with history of Altered mental status, AMS. Unresponsive. TECHNIQUE: Brain: Axial CT images of the brain were obtained with coronal and sagittal reformats created and rev iewed. Contrast used: None. Oral contrast used: None. CT DLP: 1123 mGycm, Automated exposure control for dose reduction was used. FINDINGS: Brain: Extra-axial spaces: No abnormal extra-axial fluid collections. Ventricular system: Dilatation in proportion to cerebral atrophy. Cerebral parenchyma: Cerebral atrophy. No acute intraparenchymal hemorrhage or mass effect. The suarez -white junction is well differentiated. Scattered hypoattenuating areas are seen within the white mat ter. Cerebellum: Unremarkable. Mass effect: No evidence of midline shift. Intracranial vasculature: Atherosclerotic calcifications of the intracranial vessels. Soft tissues: Normal. Calvarium/osseous structures: No depressed skull fracture. Paranasal sinuses and mastoid air cells: Mild scattered paranasal sinus disease. Visualized orbits: Orbital contents are intact. IMPRESSION: 1. No acute intracranial process. 2. Nonspecific white matter changes, likely secondary to chronic small vessel ischemic disease. [facility], , 02/11/2025 9:52 AM
[2025-02-11 09:55] LABS: Appearance,Urine Cloudy (Clear); Bacteria,Urine Few /hpf; Bilirubin,Urine Negative (Negative); Blood,Urine Moderate (Negative); Color,Urine Yellow; Glucose,Urine (UA) Negative (Negative); Ketones,Urine Negative (Negative); Leukocyte Esterase,Urine Large (Negative); Nitrite,Urine Negative (Negative); Protein,Urine 1+ (Negative); RBC,Urine 167 /hpf (0-5); Specific Gravity,Urine 1.016 (1.001-1.035); Urobilinogen,Urine <2.0 mg/dL (<2.0); WBC,Urine 116 /hpf (0-5)
--- NOTE | 2025-02-11 10:05 | CT ---
EXAMINATION TYPE: CT chest angio for PE, CT abdomen pelvis w con DATE OF EXAM: 02/11/2025 9:28 AM COMPARISON: 11/24/2024 CLINICAL INDICATION: Male, 64 years old with history of dyspnea; Dyspnea. (accession [id number]), Diste ntion. (accession [id number]), altered mental status. TECHNIQUE/CONTRAST: CTA scan of the thorax is performed with IV Contrast, patient injected with 100 ml mL of Isovue 370, MIP images are created and reviewed these are created on a separate workstation.. CT DLP: 538 (accession [id number]), 1828.8 (accession [id number]) mGycm, Automated exposure control for d ose reduction was used. TECHNIQUE: Axial CT chest angio for PE, CT abdomen pelvis w con;Sagittal and coronal reformats were created on a separate workstation. Contrast used:100 ml mL of Isovue 370 with IV Contrast, (none if empty) Oral contrast used: without Oral Contrast (none if empty) CT DLP: 538 (accession [id number]), 1828.8 (accession [id number]) mGycm, Automated exposure control for d ose reduction was used. FINDINGS: Lungs/Pleura: Low lung volumes are present. Atelectasis seen throughout the lungs no focal consolidat ion or pneumothorax identified. No evidence of focal consolidation, pleural effusion or pneumothorax. Airway: Large airways are patent. Heart: Size within normal limits. Mild coronary artery calcifications present. Vasculature: Nondiagnostic exam for pulmonary embolus given phase of contrast in the aorta. No eviden ce for aortic aneurysm that major vessels of the abdominal aorta are patent. No evidence for dissecti on. Mediastinum: No gross evidence of adenopathy. Musculoskeletal: No acute osseous abnormalities Soft Tissues/lymph nodes: Unremarkable. Lower neck: No significant findings. ABDOMEN LIVER: Unremarkable GALLBLADDER AND BILE DUCTS: Unremarkable. PANCREAS: Unremarkable. SPLEEN: Unremarkable. ADRENAL GLANDS: Unremarkable. KIDNEYS AND URETERS: No evidence of hydronephrosis or obstructing renal calculus. The ureters are unr emarkable. Nonobstructing left 2 mm renal calculus unchanged from prior. No right renal calculi. PELVIS mild fat stranding changes around the urinary bladder lumen present. BLADDER: Nondistended with Stein catheter in place. REPRODUCTIVE: Unremarkable. ABDOMEN & PELVIS STOMACH AND BOWEL: Large stool burden in the sigmoid colon and rectum with gaseous distention of amanda l. PEG tube with balloon in the stomach lumen. The duodenum is unremarkable. No evidence of bowel obs truction. PERITONEUM/RETROPERITONEUM: No evidence of pneumoperitoneum or free fluid. VASCULATURE: No evidence of aortic aneurysm. MUSCULOSKELETAL: No acute osseous abnormalities chronic severe degeneration changes of the hips with prior left hip fracture. LYMPH NODES: No gross evidence for lymphadenopathy. SOFT TISSUE/ABDOMINAL WALL: Unremarkable IMPRESSION: 1. Nondiagnostic exam for pulmonary embolus due to bolus timing. 2. Low lung volumes no evidence for focal consolidation, pneumothorax or pleural effusion. 3. Large stool burden in the rectum and sigmoid colon. Consider fecal disimpaction. 4. Chronic left hip fracture with bony deformity. 5. Stein catheter in appropriate position. Correlate with urinalysis for cystitis. 6. Nonobstructing left renal calculus. 7. PEG tube in appropriate position. [facility], , 02/11/2025 10:02 AM
--- NOTE | 2025-02-11 10:53 | ED ---
General Adult HPI - General Chief complaint: Altered Mental Status Stated complaint: unresponsive Time Seen by Provider: 02/11/25 07:51 Source: family, EMS, RN notes reviewed, old records reviewed Mode of arrival: EMS Limitations: language barrier, altered mental status - History of Present Illness Initial comments: Patient is a 64-year-old male who presents emergency department complaining of altered mental status. He is nonverbal at baseline secondary to AMS. Does have a history of hypertension, DVTs, recurrent pneumonia and recurrent UTIs. Has a PEG tube as well as a Stein catheter in place. Also history of seizure disorder. Currently is also a paraplegic from MS. Baseline apparently is he is awake, will make eye contact and make noises but cannot communicate effectively. He is below that. Apparently found this morning more lethargic but has been an ongoing issue for the last few days. Concern for worsening UTI. Sent here for further evaluation. Does have increased work of breathing and coarse breath sounds bilaterally. Mild hypoxia when originally evaluated by EMS. Placed on oxygen and transferred here. He currently has stable vital signs other than increased work of breathing at 32. Afebrile. Unable provide any history. All history obtained from EMS. I did contact Dot, the patient's power of deputy commonwealth's attorney who corroborated the story and I updated her on the patient's condition. Presents for further evaluation. Confirmed patient is full code. - Related Data Home Medications Medication Instructions Recorded Confirmed Aspirin 81 mg PEG/G-TUBE DAILY 11/27/20 02/11/25 Acetaminophen Tab [Tylenol] 650 mg PEG/G-TUBE Q4H PRN 06/13/21 02/11/25 Metoprolol Tartrate [Lopressor] 50 mg PEG/G-TUBE BID 06/13/21 02/11/25 carBAMazepine [carBAMazepine Oral 100 mg PEG/G-TUBE TID 07/02/21 02/11/25 Susp] Lactulose 20 gm PEG/G-TUBE TID 01/03/22 02/11/25 Scopolamine [Scopolamine 1 MG/72 1 patch TRANSDERM Q72H 01/03/22 02/11/25 HR patch] oxyBUTYnin chloride 5 mg PEG/G-TUBE DAILY 12/19/22 02/11/25 Famotidine [Pepcid] 20 mg PEG/G-TUBE DAILY 07/14/23 02/11/25 Ipratropium-Albuterol Nebulize 3 ml INHALATION RT-TID 11/18/23 02/11/25 [Duoneb 0.5 mg-3 mg/3 ml Soln] Lacosamide [Vimpat Oral Soln] 150 mg PEG/G-TUBE BID 11/18/23 02/11/25 Baclofen 5 mg PEG/G-TUBE TID 07/25/24 02/11/25 amantadine HCL [Amantadine] 100 mg PEG/G-TUBE DAILY 07/25/24 02/11/25 bisacodyL [Dulcolax] 10 mg RECTAL DAILY PRN 07/25/24 02/11/25 Losartan [Cozaar] 12.5 mg PEG/G-TUBE DAILY 02/11/25 02/11/25 Omeprazole 20 mg PEG/G-TUBE DAILY 02/11/25 02/11/25 Uti-Stat Oral 30 ml PEG/G-TUBE DAILY 02/11/25 02/11/25 Liquid(Cranberry-Vitamin C-Inulin) Previous Rx's Medication Instructions Recorded Sennosides [Senokot] 8.6 mg PEG/G-TUBE BID #60 tab 10/28/24 Allergies Allergy/AdvReac Type Severity Reaction Status Date / Time meropenem [From Merrem] Allergy Rash/Hives Verified 02/11/25 10:52 ceftolozane [From Zerbaxa] AdvReac Rapid Verified 02/11/25 10:52 Heart Rate tazobactam [From Zerbaxa] AdvReac Rapid Verified 02/11/25 10:52 Heart Rate Review of Systems ROS Statement: Those systems with pertinent positive or pertinent negative responses have been documented in the HPI. ROS Other: All systems not noted in ROS Statement are negative. Past Medical History Past Medical History: Deep Vein Thrombosis (DVT), GERD/Reflux, Hypertension, Musculoskeletal Disorder, Neurologic Disorder, Pneumonia, Seizure Disorder, Skin Disorder Additional Past Medical History / Comment(s): Pt diagnosed with MS at the age of 39 yrs, seizure/pneumonia/UTI with sepsis/respirtory failure/vented, cognitive impairment, sister states when he is feeling well he could speak a few words/nod head appropriately/give thumbs up/roll eyes but when ill is nonverbal, pt has dysphagia/NPO with peg tube, contractures, last seizure 07/2020, trigeminal neuralgia, dysarthria/anarthria/neurogenic bladder with IDC-UTIs/sepsis, multiple pneumonias, recent seizure-last one 07/03/20, incontinent of stool, pt has had decubitus ulcer coccyx-sister unsure of skin condition at this time, past anemia r/t heparin/epistaxiis which involved nasal packing/transfusions, D VT bilateral arms, hypoxia, oxygen at 2L/NC, L femoral head fracture History of Any Multi-Drug Resistant Organisms: ESBL, MRSA Date of last positivie culture/infection: 01/02/25-ESBL; 03/09/21-MRSA MDRO Source:: ESBL-urine; MRSA-abdomen/pegsite Past Surgical History: Tonsillectomy Additional Past Surgical History / Comment(s): Gastrostomy, peg tube, I&D coccyx decubitius, bronchoscopy, bilateral lasik eye surgery. Past Anesthesia/Blood Transfusion Reactions: No Reported Reaction Additional Past Anesthesia/Blood Transfusion Reaction / Comment(s): Pt has received blood in past without reaction. Past Psychological History: Depression Smoking Status: Never smoker Past Alcohol Use History: None Reported Past Drug Use History: None Reported - Past Family History Father Family Medical History: Myocardial Infarction (KS) Mother Family Medical History: Hypertension, Myocardial Infarction ([place]) Additional Family Medical History / Comment(s): Mother of a KS at the age of 73 yrs. General Exam - General Exam Comments Initial Comments: General: Appears in no acute distress. HEAD: Normal with no signs of head trauma. EYES: PERRLA, EOMI, conjunctiva normal, no discharge. Pupils are 3 mm and equal bilaterally. ENT: Dry mucous membranes RESPIRATORY: Coarse and wheezy breath sounds bilaterally with increased work of breathing. C/V: Regular rate and rhythm. S1 and S2 auscultated. No peripheral edema. Peripheral pulses 2+ intact throughout. ABD: Abd is soft, nontender, nondistended EXT: Normal range of motion, no obvious deformity SKIN: No rashes or lesions observed on exposed skin. NEURO: Not alert or oriented. Baseline is alert with questionable orientation as he is nonverbal. He has a history of paraplegia. Is below his current baseline. Does respond to pain. Eyes will open to pain. Eyes will slightly open and he will slightly stare to voice. Nonverbal at baseline. Limitations: language barrier, altered mental status Course Vital Signs 02/11/25 02/11/25 02/11/25 07:52 08:02 08:36 Temperature 99.3 F 98.8 F Pulse Rate 90 89 87 Respiratory 34 H 32 H 32 H Rate Blood Pressure 153/101 143/95 158/105 O2 Sat by Pulse 99 99 100 Oximetry 02/11/25 02/11/25 02/11/25 08:40 08:58 09:30 Temperature 98.6 F Pulse Rate 88 88 88 Respiratory 22 Rate Blood Pressure 129/85 O2 Sat by Pulse 99 Oximetry 02/11/25 02/11/25 02/11/25 10:41 11:00 12:03 Temperature Pulse Rate 98 95 90 Respiratory 22 20 Rate Blood Pressure 132/85 117/84 O2 Sat by Pulse 97 96 Oximetry 02/11/25 12:13 Temperature Pulse Rate 94 Respiratory Rate Blood Pressure O2 Sat by Pulse Oximetry Medical Decision Making - Medical Decision Making Was pt. sent in by a medical professional or institution (, PA, CARE TECHNICIAN, urgent care, hospital, or half-way...) When possible be specific @ -Sent from nursing facility over concern for altered mentation and concern for infection. Did you speak to anyone other than the patient for history (EMS, parent, family, police, friend...)? What history was obtained from this source @ -I spoke with EMS who provided history of patient being mildly hypoxic at the site as well as a low baseline. Apparently patient is usually alert but not oriented. Usually makes sounds. Currently is just laying there with increased work of breathing. Does respond to pain and occasionally to voice. I contacted his power of deputy commonwealth's attorney, Dot who stated that he has been intermittently battling UTIs as well as pneumonia over the last couple months. He is concerned this is once again occurring. Reiterated the baseline described as above. Also stated patient is a full code. Did you review nursing and triage notes (agree or disagree)? Why? @ -I reviewed and agree with nursing and triage notes Were old charts reviewed (outside hosp., previous admission, EMS record, old EKG, old radiological studies, urgent care reports/EKG's, half-way records)? Report findings @ -Reviewed prior urine culture from January 02, 2025 which grew Proteus, ESBL, Enterococcus, MDRO Differential Diagnosis (chest pain, altered mental status, abdominal pain women, abdominal pain men, vaginal bleeding, weakness, fever, dyspnea, syncope, headache, dizziness, GI bleed, back pain, seizure, CVA, palpatations, mental health, musculoskeletal)? @ -Differential Altered Mental Status: Hypoglycemia, DKA, hypercapnia, ETOH, overdose, CO poisoning, trauma, myxedema coma, HTN encephalopathy, infection, encephalitis, psychosis, intercranial hemorrhage, hepatic encephalopathy, meningitis, CVA, this is not meant to be an all-inclusive list EKG interpreted by me (3pts min.). @ -As above X-rays interpreted by me (1pt min.). @ -Chest x-ray shows possible pulm vascular ingestion versus mild pneumonia. CT interpreted by me (1pt min.). @ -CT brain shows no obvious acute intracranial process or injury. CT chest abdomen pelvis negative for PE. No obvious significant abdominal process or chest process otherwise. Chronic left hip fracture is present. Concern for possible cystitis. Remainder the imaging unremarkable for any obvious acute process. U/S interpreted by me (1pt. min.). @ -None done What testing was considered but not performed or refused? (CT, X-rays, U/S, labs)? Why? @ -None What meds were considered but not given or refused? Why? @ -None Did you discuss the management of the patient with other professionals (professionals i.e. , PA, CARE TECHNICIAN, lab, RT, psych nurse, social service technician, user experience architect, teacher, general service officer, shelter case manager)? Give summary @ -Discussed with Dr. Yanez who evaluated patient at bedside for his infection, as well as patient's history of what sounds like COPD as he is chronically on DuoNebs at his facility. He did make recommendations of changing antibiotics to continue at least 1 dose of vancomycin and placing the patient on Invanz. Will follow-up on the cultures and monitor the patient as well. Spoke with Dr. Crowe the accepting physician from [facility] who accepted the patient and recommended infectious disease and cardiology consultation otherwise was in agreement plan for admission. Was smoking cessation discussed for >3mins.? @ -No Was critical care preformed (if so, how long)? @ -Yes, 42 minutes. Were there social determinants of health that impacted care today? How? (Homelessness, low income, unemployed, alcoholism, drug addiction, transportation, low edu. Level, literacy, decrease access to med. care, usp, rehab)? @ -No Was there de-escalation of care discussed even if they declined (Discuss DNR or withdrawal of care, Hospice)? DNR status @ -No What co-morbidities impacted this encounter? (DM, HTN, Smoking, COPD, CAD, Cancer, CVA, ARF, Chemo, Hep., AIDS, mental health diagnosis, sleep apnea, morbid obesity)? @ -Nonverbal at baseline, paraplegic, MS Was patient admitted / discharged? Hospital course, mention meds given and route, prescriptions, significant lab abnormalities, going to OR and other pertinent info. @ -Based on the patient's presentation and physical exam, presents emergency department for altered mentation. He is below his baseline. Usually is alert and none verbal but is not oriented due to history of MS. His nonverbal at baseline but can make noises. Patient also has a history of paraplegia. Currently is just Tachypneic, responding only to pain and occasionally to voice. Vitals are otherwise within acceptable limits. Will obtain general altered mental status workup. Urine is extremely cloudy and concern for UTI considering his recurrent infections. Also patient has coarse breath sounds with wheezes and concern for possible reactive airway disease versus pneumonia. Patient empirically started on antibiotics at this time. He has 1 SIRS criteria. Patient administered multiple fluid boluses as well as IV maintenance fluids. Initiated on vancomycin and Levaquin over concern for possible pneumonia. Given a dose of IV steroids. Spoke with the patient's power of deputy commonwealth's attorney Dot who corroborated the story given by EMS as well as supported that this is below patient's baseline and provide me with history of recurrent UTIs and pneumonia. States this is following a similar pattern. I will update her on any changes but patient will be admitted. Confirmed patient is full code. Patient did respond to fluids and is more alert and near his baseline. Is spontaneously opening his eyes, making noises. Mildly still sleepy but much improved. Protecting airway. Labs returned remarkable for leukocytosis of 14. Mildly elevated troponin of 0.044 which is chronic for the patient but we will trend. BNP slightly elevated 2000 however no other concerning signs of congestive heart failure clinically. Lactic acid within normal limits. Urinaly sis concerning for UTI. Stein catheter exchanged. Patient weaned off oxygen. Chest x-ray did show findings concerning for CHF versus possible pneumonia but supports more pneumonia at this time with no history of CHF as well as comparing prior chest x-rays which appear similar. CT of the brain, chest abdomen pelvis negative for any obvious acute process. Chronic degeneration of the brain. Pos sible cystitis on CT abdomen/pelvis. Patient did meet sepsis criteria at 0835. This is when antibiotics were initiated. Blood cultures obtained and sent. Patient initially only given 1 L fluid bolus of her concern for possible CHF but upon further chart review it was revealed that patient does not have any known history of CHF and I have lower suspicion at this time believe is likely infectious as the cause of his current symptoms as well as possible mild reactive airway disease. Therefore patient initially only received a 1 L fluid bolus of lactated Ringer's and was placed on maintenance infusion. I ordered a second bolus shortly after of lactated Ringer's. On reevaluation, patient appears to be more at his baseline. He will be admitted to the hospital. Dot was notified and updated, the patient's power of deputy commonwealth's attorney and she was in agreement the plan. Discussed with Dr. Yanez who evaluated patient at bedside for his infection, as well as patient's history of what sounds like COPD as he is chronically on DuoNebs at his facility. He did make recommendations of changing antibiotics to continue at least 1 dose of vancomycin and placing the patient on Invanz. Will follow-up on the cultures and monitor the patient as well. Spoke with Dr. Crowe the accepting physician from [facility] who accepted the patient and recommended infectious disease and cardiology consultation otherwise was in agreement plan for admission. Undiagnosed new problem with uncertain prognosis? @ -No Drug Therapy requiring intensive monitoring for toxicity (Heparin, Nitro, Insulin, Cardizem)? @ -No Were any procedures done? @ -No Diagnosis/symptom? @ -Sepsis, UTI Acute, or Chronic, or Acute on Chronic? @ -Acute Uncomplicated (without systemic symptoms) or Complicated (systemic symptoms)? @ -Complicated Side effects of treatment? @ -No Exacerbation, Progression, or Severe Exacerbation? @ -No Poses a threat to life or bodily function? How? (Chest pain, [place], [place], pneumonia, PE, COPD, DKA, ARF, appy, cholecystitis, CVA, Diverticulitis, Homicidal, Suicidal, threat to staff... and all critical care pts) @ -Yes - Lab Data Result diagrams: 02/11/25 08:03 02/11/25 08:03 Lab Results 02/11/25 02/11/25 02/11/25 Range/Units 07:56 08:02 08:03 WBC 14.01 H (4.50-10.00) 10*3/uL RBC 5.03 (4.40-5.60) 10*6/uL Hgb 13.8 (13.0-17.0) g/dL Hct 44.1 (39.6-50.0) % MCV 87.7 (80.0-97.0) fL MCH 27.4 (27.0-32.0) pg MCHC 31.3 L (32.0-37.0) g/dL Plt Count 341 (140-440) 10*3/uL MPV 11.1 (9.5-12.2) fL Immature Gran % (Auto) 0.5 % Neutrophils % 82.9 % Lymphocytes % 5.3 % Monocytes % 9.0 % Eosinophils % 2.0 % Basophils % 0.3 % Immature Gran # 0.07 H (0.00-0.04) 10*3/uL Neutrophils # 11.62 H (1.80-7.70) 10*3/uL Lymphocytes # 0.74 L (0.90-5.00) 10*3/uL Monocytes # 1.26 H (0.20-1.00) 10*3/uL Eosinophils # 0.28 (0.04-0.35) 10*3/uL Basophils # 0.04 (0.00-0.10) 10*3/uL Immature Plt Fraction 2.7 (1.1-6.1) % PT (10.0-12.5) sec INR (<1.2) APTT (22.0-30.0) sec Sample Site ABG pH (7.35-7.45) ABG pCO2 (35-45) mmHg ABG pO2 (83-108) mmHg ABG HCO3 (21-25) mmol/L ABG Total CO2 (19-24) mmol/L ABG O2 Saturation (94-97) % ABG Base Excess mmol/L Porfirio Test Hemoglobin (13.0-17.5) gm/dL FiO2 % Sodium (137-145) mmol/L Potassium (3.5-5.1) mmol/L Chloride (98-107) mmol/L Carbon Dioxide (22-30) mmol/L Anion Gap mmol/L BUN (9-20) mg/dL Creatinine (0.66-1.25) mg/dL Est GFR (CKD-EPI)AfAm (>60 ml/min/1.73 sqM) Est GFR (CKD-EPI)NonAf (>60 ml/min/1.73 sqM) Glucose (74-99) mg/dL POC Glucose (mg/dL) 103 (70-110) mg/dL POC Glu Environmental Health Technologist ID December Plasma Lactic Acid Taurus (0.7-2.0) mmol/L Calcium (8.4-10.2) mg/dL Total Bilirubin (0.2-1.3) mg/dL AST (17-59) U/L ALT (4-49) U/L Alkaline Phosphatase (38-126) U/L Ammonia (<30) umol/L Troponin I (0.000-0.034) ng/mL NT-Pro-B Natriuret Pep pg/mL Total Protein (6.3-8.2) g/dL Albumin (3.5-5.0) g/dL Urine Color Urine Appearance (Clear) Urine pH (5.0-8.0) Ur Specific Power (1.001-1.035) Urine Protein (Negative) Urine Glucose (UA) (Negative) Urine Ketones (Negative) Urine Blood (Negative) Urine Nitrite (Negative) Urine Bilirubin (Negative) Urine Urobilinogen (<2.0) mg/dL Ur Leukocyte Esterase (Negative) Urine RBC (0-5) /hpf Urine WBC (0-5) /hpf Urine Bacteria (None) /hpf Serum Alcohol mg/dL Influenza Type A (PCR) Not Detected (Not Detectd) Influenza Type B (PCR) Not Detected (Not Detectd) RSV (PCR) Not Detected (Not Detectd) SARS-CoV-2 (PCR) Not Detected (Not Detectd) 02/11/25 02/11/25 02/11/25 Range/Units 08:03 08:03 08:03 WBC (4.50-10.00) 10*3/uL RBC (4.40-5.60) 10*6/uL Hgb (13.0-17.0) g/dL Hct (39.6-50.0) % MCV (80.0-97.0) fL MCH (27.0-32.0) pg MCHC (32.0-37.0) g/dL Plt Count (140-440) 10*3/uL MPV (9.5-12.2) fL Immature Gran % (Auto) % Neutrophils % % Lymphocytes % % Monocytes % % Eosinophils % % Basophils % % Immature Gran # (0.00-0.04) 10*3/uL Neutrophils # (1.80-7.70) 10*3/uL Lymphocytes # (0.90-5.00) 10*3/uL Monocytes # (0.20-1.00) 10*3/uL Eosinophils # (0.04-0.35) 10*3/uL Basophils # (0.00-0.10) 10*3/uL Immature Plt Fraction (1.1-6.1) % PT 11.2 (10.0-12.5) sec INR 1.0 (<1.2) APTT 23.9 (22.0-30.0) sec Sample Site ABG pH (7.35-7.45) ABG pCO2 (35-45) mmHg ABG pO2 (83-108) mmHg ABG HCO3 (21-25) mmol/L ABG Total CO2 (19-24) mmol/L ABG O2 Saturation (94-97) % ABG Base Excess mmol/L Porfirio Test Hemoglobin (13.0-17.5) gm/dL FiO2 % Sodium 143 (137-145) mmol/L Potassium 4.6 (3.5-5.1) mmol/L Chloride 113 H (98-107) mmol/L Carbon Dioxide 21 L (22-30) mmol/L Anion Gap 9 mmol/L BUN 29 H (9-20) mg/dL Creatinine 0.71 (0.66-1.25) mg/dL Est GFR (CKD-EPI)AfAm >90 (>60 ml/min/1.73 sqM) Est GFR (CKD-EPI)NonAf >90 (>60 ml/min/1.73 sqM) Glucose 119 H (74-99) mg/dL POC Glucose (mg/dL) (70-110) mg/dL POC Glu Environmental Health Technologist ID Plasma Lactic Acid Taurus 1.1 (0.7-2.0) mmol/L Calcium 8.6 (8.4-10.2) mg/dL Total Bilirubin 0.5 (0.2-1.3) mg/dL AST 28 (17-59) U/L ALT 30 (4-49) U/L Alkaline Phosphatase 102 (38-126) U/L Ammonia 29 (<30) umol/L Troponin I (0.000-0.034) ng/mL NT-Pro-B Natriuret Pep pg/mL Total Protein 6.6 (6.3-8.2) g/dL Albumin 3.3 L (3.5-5.0) g/dL Urine Color Urine Appearance (Clear) Urine pH (5.0-8.0) Ur Specific Power (1.001-1.035) Urine Protein (Negative) Urine Glucose (UA) (Negative) Urine Ketones (Negative) Urine Blood (Negative) Urine Nitrite (Negative) Urine Bilirubin (Negative) Urine Urobilinogen (<2.0) mg/dL Ur Leukocyte Esterase (Negative) Urine RBC (0-5) /hpf Urine WBC (0-5) /hpf Urine Bacteria (None) /hpf Serum Alcohol <10 mg/dL Influenza Type A (PCR) (Not Detectd) Influenza Type B (PCR) (Not Detectd) RSV (PCR) (Not Detectd) SARS-CoV-2 (PCR) (Not Detectd) 02/11/25 02/11/25 02/11/25 Range/Units 08:03 08:03 08:32 WBC (4.50-10.00) 10*3/uL RBC (4.40-5.60) 10*6/uL Hgb (13.0-17.0) g/dL Hct (39.6-50.0) % MCV (80.0-97.0) fL MCH (27.0-32.0) pg MCHC (32.0-37.0) g/dL Plt Count (140-440) 10*3/uL MPV (9.5-12.2) fL Immature Gran % (Auto) % Neutrophils % % Lymphocytes % % Monocytes % % Eosinophils % % Basophils % % Immature Gran # (0.00-0.04) 10*3/uL Neutrophils # (1.80-7.70) 10*3/uL Lymphocytes # (0.90-5.00) 10*3/uL Monocytes # (0.20-1.00) 10*3/uL Eosinophils # (0.04-0.35) 10*3/uL Basophils # (0.00-0.10) 10*3/uL Immature Plt Fraction (1.1-6.1) % PT (10.0-12.5) sec INR (<1.2) APTT (22.0-30.0) sec Sample Site ABG pH (7.35-7.45) ABG pCO2 (35-45) mmHg ABG pO2 (83-108) mmHg ABG HCO3 (21-25) mmol/L ABG Total CO2 (19-24) mmol/L ABG O2 Saturation (94-97) % ABG Base Excess mmol/L Porfirio Test Hemoglobin (13.0-17.5) gm/dL FiO2 % Sodium (137-145) mmol/L Potassium (3.5-5.1) mmol/L Chloride (98-107) mmol/L Carbon Dioxide (22-30) mmol/L Anion Gap mmol/L BUN (9-20) mg/dL Creatinine (0.66-1.25) mg/dL Est GFR (CKD-EPI)AfAm (>60 ml/min/1.73 sqM) Est GFR (CKD-EPI)NonAf (>60 ml/min/1.73 sqM) Glucose (74-99) mg/dL POC Glucose (mg/dL) (70-110) mg/dL POC Glu Environmental Health Technologist ID Plasma Lactic Acid Taurus (0.7-2.0) mmol/L Calcium (8.4-10.2) mg/dL Total Bilirubin (0.2-1.3) mg/dL AST (17-59) U/L ALT (4-49) U/L Alkaline Phosphatase (38-126) U/L Ammonia (<30) umol/L Troponin I 0.044 H* (0.000-0.034) ng/mL NT-Pro-B Natriuret Pep 2010 pg/mL Total Protein (6.3-8.2) g/dL Albumin (3.5-5.0) g/dL Urine Color Yellow Urine Appearance Cloudy (Clear) Urine pH 8.0 (5.0-8.0) Ur Specific Power 1.016 (1.001-1.035) Urine Protein 1+ H (Negative) Urine Glucose (UA) Negative (Negative) Urine Ketones Negative (Negative) Urine Blood Moderate H (Negative) Urine Nitrite Negative (Negative) Urine Bilirubin Negative (Negative) Urine Urobilinogen <2.0 (<2.0) mg/dL Ur Leukocyte Esterase Large H (Negative) Urine RBC 167 H (0-5) /hpf Urine WBC 116 H (0-5) /hpf Urine Bacteria Few H (None) /hpf Serum Alcohol mg/dL Influenza Type A (PCR) (Not Detectd) Influenza Type B (PCR) (Not Detectd) RSV (PCR) (Not Detectd) SARS-CoV-2 (PCR) (Not Detectd) 02/11/25 02/11/25 Range/Units 08:49 12:37 WBC (4.50-10.00) 10*3/uL RBC (4.40-5.60) 10*6/uL Hgb (13.0-17.0) g/dL Hct (39.6-50.0) % MCV (80.0-97.0) fL MCH (27.0-32.0) pg MCHC (32.0-37.0) g/dL Plt Count (140-440) 10*3/uL MPV (9.5-12.2) fL Immature Gran % (Auto) % Neutrophils % % Lymphocytes % % Monocytes % % Eosinophils % % Basophils % % Immature Gran # (0.00-0.04) 10*3/uL Neutrophils # (1.80-7.70) 10*3/uL Lymphocytes # (0.90-5.00) 10*3/uL Monocytes # (0.20-1.00) 10*3/uL Eosinophils # (0.04-0.35) 10*3/uL Basophils # (0.00-0.10) 10*3/uL Immature Plt Fraction (1.1-6.1) % PT (10.0-12.5) sec INR (<1.2) APTT (22.0-30.0) sec Sample Site lrad ABG pH 7.43 (7.35-7.45) ABG pCO2 35 (35-45) mmHg ABG pO2 119 H (83-108) mmHg ABG HCO3 23 (21-25) mmol/L ABG Total CO2 24 (19-24) mmol/L ABG O2 Saturation 99.0 H (94-97) % ABG Base Excess -0.5 mmol/L Porfirio Test Yes Hemoglobin 13.7 (13.0-17.5) gm/dL FiO2 28 % Sodium (137-145) mmol/L Potassium (3.5-5.1) mmol/L Chloride (98-107) mmol/L Carbon Dioxide (22-30) mmol/L Anion Gap mmol/L BUN (9-20) mg/dL Creatinine (0.66-1.25) mg/dL Est GFR (CKD-EPI)AfAm (>60 ml/min/1.73 sqM) Est GFR (CKD-EPI)NonAf (>60 ml/min/1.73 sqM) Glucose (74-99) mg/dL POC Glucose (mg/dL) (70-110) mg/dL POC Glu Environmental Health Technologist ID Plasma Lactic Acid Taurus (0.7-2.0) mmol/L Calcium (8.4-10.2) mg/dL Total Bilirubin (0.2-1.3) mg/dL AST (17-59) U/L ALT (4-49) U/L Alkaline Phosphatase (38-126) U/L Ammonia (<30) umol/L Troponin I 0.047 H* (0.000-0.034) ng/mL NT-Pro-B Natriuret Pep pg/mL Total Protein (6.3-8.2) g/dL Albumin (3.5-5.0) g/dL Urine Color Urine Appearance (Clear) Urine pH (5.0-8.0) Ur Specific Power (1.001-1.035) Urine Protein (Negative) Urine Glucose (UA) (Negative) Urine Ketones (Negative) Urine Blood (Negative) Urine Nitrite (Negative) Urine Bilirubin (Negative) Urine Urobilinogen (<2.0) mg/dL Ur Leukocyte Esterase (Negative) Urine RBC (0-5) /hpf Urine WBC (0-5) /hpf Urine Bacteria (None) /hpf Serum Alcohol mg/dL Influenza Type A (PCR) (Not Detectd) Influenza Type B (PCR) (Not Detectd) RSV (PCR) (Not Detectd) SARS-CoV-2 (PCR) (Not Detectd) - EKG Data -: EKG Interpreted by Me EKG Comments: 12-lead Electrocardiogram Interpretation Note EKG was reviewed and interpreted by myself. 12-lead ECG performed at 0756 is interpreted by me as revealing normal sinus rhythm at a rate of 91 beats per minute. [place] is normal. ND interval is 178 ms, QRS duration is 90 ms, QTc is 389 ms.. There were no ST or T wave abnormalities to suggest myocardial ischemia or injury. R wave progression across the precordium was satisfactory. By my interpretation this EKG is non-diagnostic for acute ischemia. Critical Care Time Critical Care Time: Yes Total Critical Care Time: 42 Disposition Clinical Impression: Sepsis, UTI (urinary tract infection) Disposition: ADMITTED IP TO THIS HOSP Condition: Serious Referrals: DEANGELO NEUMANN MD [Primary Care Provider] - 1-2 days Time of Disposition: 11:07
[2025-02-11] MEDS ORDERED: ONDANSETRON 4 MG/2 ML VIAL IVP PRN (11:07)
[2025-02-11] MEDS ORDERED: NALOXONE 0.4 MG/ML 1 ML VIAL IV PRN (11:07)
[2025-02-11] MEDS: ERTAPENEM 1 GM in SODIUM CHLORIDE 0.9% 50 ML IVPB SCH (11:09)
[2025-02-11] MEDS: VANCOMYCIN 1,500 MG in SODIUM CHLORIDE 0.9% 500 ML 500 ML IVPB ONE (11:54)
[2025-02-11] MEDS: IPRATROPIUM-ALBUTEROL 3 ML NEB INHALATION SCH (12:03)
[2025-02-11] MEDS: ASPIRIN 300 MG SUPP RECTAL STA (12:47)
[2025-02-11] MEDS: PANTOPRAZOLE 40 MG/10 ML VIAL IVP SCH (15:16)
--- NOTE | 2025-02-11 15:17 | P.GSCN ---
History of Present Illness Consult date: 02/11/25 History of present illness: CHIEF COMPLAINT: Altered mental status HISTORY OF PRESENT ILLNESS: This is a 64-year-old male with a known history of multiple sclerosis and is paraplegic. He does have issues with recurrent pneumonia and UTIs. He presented to the hospital with altered mental status and being more lethargic. Patient on antibiotics for possible UTI. He did have a CT scan of the chest and abdomen no evidence of PE but did report large stool [place] in the rectum and sigmoid consider fecal impaction. ER nurse does report that patient had a large bowel movement in the ER. Patient has a very congested cough. PAST MEDICAL HISTORY: Multiple sclerosis,Deep Vein Thrombosis (DVT), GERD/Reflux, Hypertension, Musculoskeletal Disorder, Neurologic Disorder, Pneumonia, Seizure Disorder, Skin Disorder, seizure/pneumonia/UTI with sepsis/respirtory failure/vented, cognitive impairmentpt has dysphagia/NPO with peg tube, contractures, last seizure 07/2020, trigeminal neuralgia, dysarthria/anarthria/neurogenic bladder with IDC- UTIs/sepsis, multiple pneumonias, recent seizure-last one 07/03/20, incontinent of stool, pt has had decubitus ulcer coccyx-sister unsure of skin condition at this time, past anemia r/t heparin/epistaxiis which involved nasal pack ing/transfusions, DVT bilateral arms, hypoxia, oxygen at 2L/NC, L femoral head fracture PAST SURGICAL HISTORY: Peg tube, I&D coccyx decubitius, bronchoscopy MEDICATIONS: See below ALLERGIES: See below SOCIAL HISTORY: No illicit drug use. REVIEW OF SYSTEMS: CONSTITUTIONAL: Denies fever or chills. HEENT: Denies blurred vision, vision changes, or eye pain. Denies hemoptysis CARDIOVASCULAR: Denies chest pain or pressure. RESPIRATORY: No shortness of breath. GASTROINTESTINAL: See HPI for pertinent findings HEMATOLOGIC: Denies bleeding disorders. GENITOURINARY: Denies any blood in urine or increased urinary frequency. SKIN: Denies pruitis. Denies rash. PHYSICAL EXAM: VITAL SIGNS: Reviewed GENERAL: no acute distress. HEENT: No sclera icterus. Extraocular movements grossly intact. Moist buccal mucosa. Head is atraumatic, normocephalic. No nasal drainage. ABDOMEN: Soft. very distended. nontender. peg tube in place NEUROLOGIC: awake. nonverbal Rectal exam: Stool present in brief. Soft stool noted in the rectal vault. Sacral wound covered. LABORATORY DATA: WBC 14 Hgb 13.8 platelets 341 Sodium 143 potassium 4.6 creatinine 0.71 LFTs normal Troponin 0.047 IMAGING: Chest x-ray cardiomegaly and interstitial densities. Correlate for CHF with pulmonary vascular congestion. CT brain no acute changes CT scan chest abdomen and pelvis reports nondiagnostic exam for PE due to bolus timing. Large stool burden in the rectum and sigmoid colon consider fecal disimpaction PEG tube in appropriate position. Nonobstructing left renal calculus. ASSESSMENT: 1. Abdominal distention with CT scan reporting large stool burden in the rectum and sigmoid colon. Consider fecal disimpaction 2. History of multiple sclerosis and is paraplegic PLAN: - Soapsuds enemas x 2 ordered for large stool burden - Continue to monitor Physician Director [employer] note has been reviewed by physician. Signing provider agrees with the documented findings, assessment, and plan of care. Past Medical History Past Medical History: Deep Vein Thrombosis (DVT), GERD/Reflux, Hypertension, Musculoskeletal Disorder, Neurologic Disorder, Pneumonia, Seizure Disorder, Skin Disorder Additional Past Medical History / Comment(s): Pt diagnosed with MS at the age of 39 yrs, seizure/pneumonia/UTI with sepsis/respirtory failure/vented, cognitive impairment, sister states when he is feeling well he could speak a few words/nod head appropriately/give thumbs up/roll eyes but when ill is nonverbal, pt has dysphagia/NPO with peg tube, contractures, last seizure 07/2020, trigeminal neuralgia, dysarthria/anarthria/neurogenic bladder with IDC-UTIs/sepsis, multiple pneumonias, recent seizure-last one 07/03/20, incontinent of stool, pt has had decubitus ulcer coccyx-sister unsure of skin condition at this time, past anemia r/t heparin/epistaxiis which involved nasal packing/transfusions, DVT bilateral arms, hypoxia, oxygen at 2L/NC, L femoral head fracture History of Any Multi-Drug Resistant Organisms: ESBL, MRSA Year Discovered:: 01/02/25-ESBL; 03/09/21-MRSA MDRO Source:: ESBL-urine; MRSA-abdomen/pegsite Past Surgical History: Tonsillectomy Additional Past Surgical History / Comment(s): Gastrostomy, peg tube, I&D coccyx decubitius, bronchoscopy, bilateral lasik eye surgery. Past Anesthesia/Blood Transfusion Reactions: No Reported Reaction Additional Past Anesthesia/Blood Transfusion Reaction / Comm: Pt has received blood in past without reaction. Past Psychological History: Depression Smoking Status: Never smoker Past Alcohol Use History: None Reported Past Drug Use History: None Reported - Past Family History Father Family Medical History: Myocardial Infarction (OR) Mother Family Medical History: Hypertension, Myocardial Infarction (OR) Additional Family Medical History / Comment(s): Mother of a OR at the age of 73 yrs. Medications and Allergies Home Medications Medication Instructions Recorded Confirmed Type Aspirin 81 mg PEG/G-TUBE DAILY 11/27/20 02/11/25 History Acetaminophen Tab [Tylenol] 650 mg PEG/G-TUBE Q4H PRN 06/13/21 02/11/25 History Metoprolol Tartrate [Lopressor] 50 mg PEG/G-TUBE BID 06/13/21 02/11/25 History carBAMazepine [carBAMazepine Oral 100 mg PEG/G-TUBE TID 07/02/21 02/11/25 History Susp] Lactulose 20 gm PEG/G-TUBE TID 01/03/22 02/11/25 History Scopolamine [Scopolamine 1 MG/72 1 patch TRANSDERM Q72H 01/03/22 02/11/25 History HR patch] oxyBUTYnin chloride 5 mg PEG/G-TUBE DAILY 12/19/22 02/11/25 History Famotidine [Pepcid] 20 mg PEG/G-TUBE DAILY 07/14/23 02/11/25 History Ipratropium-Albuterol Nebulize 3 ml INHALATION RT-TID 11/18/23 02/11/25 History [Duoneb 0.5 mg-3 mg/3 ml Soln] Lacosamide [Vimpat Oral Soln] 150 mg PEG/G-TUBE BID 11/18/23 02/11/25 History Baclofen 5 mg PEG/G-TUBE TID 07/25/24 02/11/25 History amantadine HCL [Amantadine] 100 mg PEG/G-TUBE DAILY 07/25/24 02/11/25 History bisacodyL [Dulcolax] 10 mg RECTAL DAILY PRN 07/25/24 02/11/25 History Sennosides [Senokot] 8.6 mg PEG/G-TUBE BID #60 tab 10/28/24 02/11/25 Rx Losartan [Cozaar] 12.5 mg PEG/G-TUBE DAILY 02/11/25 02/11/25 History Omeprazole 20 mg PEG/G-TUBE DAILY 02/11/25 02/11/25 History Uti-Stat Oral 30 ml PEG/G-TUBE DAILY 02/11/25 02/11/25 History Liquid(Cranberry-Vitamin C-Inulin) Allergies Allergy/AdvReac Type Severity Reaction Status Date / Time meropenem [From Merrem] Allergy Rash/Hives Verified 02/11/25 10:52 ceftolozane [From Zerbaxa] AdvReac Rapid Verified 02/11/25 10:52 Heart Rate tazobactam [From Zerbaxa] AdvReac Rapid Verified 02/11/25 10:52 Heart Rate Surgical - Exam Vital Signs Temp Pulse Resp BP Pulse Ox 99.3 F 90 34 H 153/101 99 02/11/25 07:52 02/11/25 07:52 02/11/25 07:52 02/11/25 07:52 02/11/25 07:52 Results - Labs 02/11/25 08:03 02/11/25 08:03 Abnormal Lab Results - Last 24 Hours (Table) 02/11/25 02/11/25 02/11/25 Range/Units 08:03 08:03 08:03 WBC 14.01 H (4.50-10.00) 10*3/uL MCHC 31.3 L (32.0-37.0) g/dL Immature Gran # 0.07 H (0.00-0.04) 10*3/uL Neutrophils # 11.62 H (1.80-7.70) 10*3/uL Lymphocytes # 0.74 L (0.90-5.00) 10*3/uL Monocytes # 1.26 H (0.20-1.00) 10*3/uL ABG pO2 (83-108) mmHg ABG O2 Saturation (94-97) % Chloride 113 H (98-107) mmol/L Carbon Dioxide 21 L (22-30) mmol/L BUN 29 H (9-20) mg/dL Glucose 119 H (74-99) mg/dL Troponin I 0.044 H* (0.000-0.034) ng/mL Albumin 3.3 L (3.5-5.0) g/dL Urine Protein (Negative) Urine Blood (Negative) Ur Leukocyte Esterase (Negative) Urine RBC (0-5) /hpf Urine WBC (0-5) /hpf Urine Bacteria (None) /hpf 02/11/25 02/11/25 02/11/25 Range/Units 08:32 08:49 12:37 WBC (4.50-10.00) 10*3/uL MCHC (32.0-37.0) g/dL Immature Gran # (0.00-0.04) 10*3/uL Neutrophils # (1.80-7.70) 10*3/uL Lymphocytes # (0.90-5.00) 10*3/uL Monocytes # (0.20-1.00) 10*3/uL ABG pO2 119 H (83-108) mmHg ABG O2 Saturation 99.0 H (94-97) % Chloride (98-107) mmol/L Carbon Dioxide (22-30) mmol/L BUN (9-20) mg/dL Glucose (74-99) mg/dL Troponin I 0.047 H* (0.000-0.034) ng/mL Albumin (3.5-5.0) g/dL Urine Protein 1+ H (Negative) Urine Blood Moderate H (Negative) Ur Leukocyte Esterase Large H (Negative) Urine RBC 167 H (0-5) /hpf Urine WBC 116 H (0-5) /hpf Urine Bacteria Few H (None) /hpf Diabetes panel 02/11/25 Range/Units 08:03 Sodium 143 (137-145) mmol/L Potassium 4.6 (3.5-5.1) mmol/L Chloride 113 H (98-107) mmol/L Carbon Dioxide 21 L (22-30) mmol/L BUN 29 H (9-20) mg/dL Creatinine 0.71 (0.66-1.25) mg/dL Glucose 119 H (74-99) mg/dL Calcium 8.6 (8.4-10.2) mg/dL AST 28 (17-59) U/L ALT 30 (4-49) U/L Alkaline Phosphatase 102 (38-126) U/L Total Protein 6.6 (6.3-8.2) g/dL Albumin 3.3 L (3.5-5.0) g/dL Calcium panel 02/11/25 Range/Units 08:03 Calcium 8.6 (8.4-10.2) mg/dL Albumin 3.3 L (3.5-5.0) g/dL Pituitary panel 02/11/25 Range/Units 08:03 Sodium 143 (137-145) mmol/L Potassium 4.6 (3.5-5.1) mmol/L Chloride 113 H (98-107) mmol/L Carbon Dioxide 21 L (22-30) mmol/L BUN 29 H (9-20) mg/dL Creatinine 0.71 (0.66-1.25) mg/dL Glucose 119 H (74-99) mg/dL Calcium 8.6 (8.4-10.2) mg/dL Adrenal panel 02/11/25 Range/Units 08:03 Sodium 143 (137-145) mmol/L Potassium 4.6 (3.5-5.1) mmol/L Chloride 113 H (98-107) mmol/L Carbon Dioxide 21 L (22-30) mmol/L BUN 29 H (9-20) mg/dL Creatinine 0.71 (0.66-1.25) mg/dL Glucose 119 H (74-99) mg/dL Calcium 8.6 (8.4-10.2) mg/dL Total Bilirubin 0.5 (0.2-1.3) mg/dL AST 28 (17-59) U/L ALT 30 (4-49) U/L Alkaline Phosphatase 102 (38-126) U/L Total Protein 6.6 (6.3-8.2) g/dL Albumin 3.3 L (3.5-5.0) g/dL
[2025-02-11 15:59] LABS: Amphetamine Screen,Urine Not Detected (NotDetected); Barbiturate Screen,Urine Not Detected (NotDetected); Benzodiazepines Screen,Urine Not Detected (NotDetected); Cocaine Screen,Urine Not Detected (NotDetected); Methadone Screen, Urine Not Detected (NotDetected); Opiate Screen,Urine Not Detected (NotDetected); Oxycodone Screen, Urine Not Detected (NotDetected); Phencyclidine Screen,Urine Not Detected (NotDetected); Tricyclic Antidepressant,Urine Not Detected (NotDetected); Urn Cannabinoid Scrn Not Detected (NotDetected)
[2025-02-11] MEDS: FORMOTEROL FUMARATE 20 MCG/2 ML NEBU INHALATION SCH (16:08)
[2025-02-11] MEDS: BUDESONIDE 1 MG/2 ML NEBU INHALATION SCH (16:08)
[2025-02-11] MEDS: methylPREDNISolone SOD SUCCI 40 MG/ML 1 ML VIAL IV SCH (16:22)
[2025-02-11] MEDS: LACTULOSE 20 GM/30 ML CUP PEG/G-TUBE SCH (16:22)
[2025-02-11] MEDS: BACLOFEN 10 MG TAB PEG/G-TUBE SCH (16:22)
--- NOTE | 2025-02-11 16:33 | P.CNPUL ---
History of Present Illness Consult date: 02/11/25 Reason for consult: dyspnea History of present illness: 64-year-old male patient, advanced multiple sclerosis, nonverbal and paraplegic, presented to the emergency with increased lethargy, and suspected sepsis. The patient cannot volunteer any medical information. Based on my chart review, the patient has had frequent urine tract infections including a recent urine tract infection with a gram-negative ESBL producing Proteus Mirabella's. He has also had various urine tract infection with Enterococcus. No reported aspiration although pneumonia is still a concern. He has a PEG tube for enteral feeding and nutritional support and he has also a Stein catheter in place. His past medical history includes advanced multiple sclerosis, hy pertension, previous history of DVTs, recurrent pneumonias and recurrent urine tract infection and history of seizure disorder. In the emergency, the patient was found to be mildly hypoxic and tachypneic. He was placed on oxygen at 2 L/min nasal cannula. He was also given IV fluids and he received lactated Ringer x 3 L and he was started on a maintenance lactated Ringer 130 cc an hour. The patient was initially given Levaquin and vancomycin. I added IV Invanz based on his ESBL related gram-negative urinary tract infections. I also reviewed the chest x-ray. No acute abnormalities. No airspace disease or consolidation. CT scan of the chest was also done that was nondiagnostic for pulmonary embolism. Lung volumes were essentially small. There was large stool burden in the rectum and sigmoid colon and there was chronic left hip fracture with bone deformity. PEG tube is in good location. Nonobstructive left renal calculus. The white cell count of 14 hemoglobin 13.8 and a platelet count of 341. Blood gas showed a pH of 7.43 with a pCO2 of 35 and PO219. BUN is 29 with a creatinine of 0.7. Sodium levels at 143. proBNP level is 2010. Troponins at 0.04 respectively x 3. UA is abnormal. Urine tox is negative. Viral screen is negative and alcohol level is less than 10. Review of Systems ROS unobtainable: due to mental status (Presents) Past Medical History Past Medical History: Deep Vein Thrombosis (DVT), GERD/Reflux, Hypertension, Musculoskeletal Disorder, Neurologic Disorder, Pneumonia, Seizure Disorder, Skin Disorder Additional Past Medical History / Comment(s): Pt diagnosed with MS at the age of 39 yrs, seizure/pneumonia/UTI with sepsis/respirtory failure/vented, cognitive impairment, sister states when he is feeling well he could speak a few words/nod head appropriately/give thumbs up/roll eyes but when ill is nonverbal, pt has dysphagia/NPO with peg tube, contractures, last seizure 07/2020, trigeminal neuralgia, dysarthria/anarthria/neurogenic bladder with IDC-UTIs/sepsis, multiple pneumonias, recent seizure-last one 07/03/20, incontinent of stool, pt has had decubitus ulcer coccyx-sister unsure of skin condition at this time, past anemia r/t heparin/epistaxiis which involved nasal packing/transfusions, DVT bilateral arms, hypoxia, oxygen at 2L/NC, L femoral head fracture History of Any Multi-Drug Resistant Organisms: ESBL, MRSA Date of last positivie culture/infection: 01/02/25-ESBL; 03/09/21-MRSA MDRO Source:: ESBL-urine; MRSA-abdomen/pegsite Past Surgical History: Tonsillectomy Additional Past Surgical History / Comment(s): Gastrostomy, peg tube, I&D coccyx decubitius, bronchoscopy, bilateral lasik eye surgery. Past Anesthesia/Blood Transfusion Reactions: No Reported Reaction Additional Past Anesthesia/Blood Transfusion Reaction / Comment(s): Pt has recei osiel blood in past without reaction. Past Psychological History: Depression Smoking Status: Never smoker Past Alcohol Use History: None Reported Past Drug Use History: None Reported - Past Family History Father Family Medical History: Myocardial Infarction ([place]) Mother Family Medical History: Hypertension, Myocardial Infarction (UT) Additional Family Medical History / Comment(s): Mother of a [place] at the age of 73 yrs. Medications and Allergies Home Medications Medication Instructions Recorded Confirmed Type Aspirin 81 mg PEG/G-TUBE DAILY 11/27/20 02/11/25 History Acetaminophen Tab [Tylenol] 650 mg PEG/G-TUBE Q4H PRN 06/13/21 02/11/25 History Metoprolol Tartrate [Lopressor] 50 mg PEG/G-TUBE BID 06/13/21 02/11/25 History carBAMazepine [carBAMazepine Oral 100 mg PEG/G-TUBE TID 07/02/21 02/11/25 History Susp] Lactulose 20 gm PEG/G-TUBE TID 01/03/22 02/11/25 History Scopolamine [Scopolamine 1 MG/72 1 patch TRANSDERM Q72H 01/03/22 02/11/25 History HR patch] oxyBUTYnin chloride 5 mg PEG/G-TUBE DAILY 12/19/22 02/11/25 History Famotidine [Pepcid] 20 mg PEG/G-TUBE DAILY 07/14/23 02/11/25 History Ipratropium-Albuterol Nebulize 3 ml INHALATION RT-TID 11/18/23 02/11/25 History [Duoneb 0.5 mg-3 mg/3 ml Soln] Lacosamide [Vimpat Oral Soln] 150 mg PEG/G-TUBE BID 11/18/23 02/11/25 History Baclofen 5 mg PEG/G-TUBE TID 07/25/24 02/11/25 History amantadine HCL [Amantadine] 100 mg PEG/G-TUBE DAILY 07/25/24 02/11/25 History bisacodyL [Dulcolax] 10 mg RECTAL DAILY PRN 07/25/24 02/11/25 History Sennosides [Senokot] 8.6 mg PEG/G-TUBE BID #60 tab 10/28/24 02/11/25 Rx Losartan [Cozaar] 12.5 mg PEG/G-TUBE DAILY 02/11/25 02/11/25 History Omeprazole 20 mg PEG/G-TUBE DAILY 02/11/25 02/11/25 History Uti-Stat Oral 30 ml PEG/G-TUBE DAILY 02/11/25 02/11/25 History Liquid(Cranberry-Vitamin C-Inulin) Allergies Allergy/AdvReac Type Severity Reaction Status Date / Time meropenem [From Merrem] Allergy Rash/Hives Verified 02/11/25 10:52 ceftolozane [From Zerbaxa] AdvReac Rapid Verified 02/11/25 10:52 Heart Rate tazobactam [From Zerbaxa] AdvReac Rapid Verified 02/11/25 10:52 Heart Rate Physical Exam Vitals: Vital Signs Temp Pulse Resp BP Pulse Ox 02/11/25 16:17 88 02/11/25 16:09 86 02/11/25 12:13 94 02/11/25 12:03 90 02/11/25 11:00 95 20 117/84 96 02/11/25 10:41 98 22 132/85 97 02/11/25 09:30 98.6 F 88 22 129/85 99 02/11/25 08:58 88 02/11/25 08:40 88 02/11/25 08:36 98.8 F 87 32 H 158/105 100 02/11/25 08:02 89 32 H 143/95 99 02/11/25 07:52 99.3 F 90 34 H 153/101 99 Intake and Output 02/11/25 02/11/25 02/11/25 06:59 14:59 22:59 Intake Total 1000 Output Total 800 Balance 200 Intake: Intake, IV Titration 1000 Amount Lactated Ringers 1,000 ml 1000 @ 999 mls/hr IV .Q1H1M ONE Rx#:[id number] Output: Urine 800 Other: Weight 94.1 kg GENERAL EXAM: Lethargic, debilitated 64-year-old male, on 2 L/min nasal cannula. Has a weak and congested cough. Does not follow commands. HEAD: Normocephalic and atraumatic EYES: Normal reaction of pupils, equal size. NOSE: Clear with pink turbinates. THROAT: No erythema or exudates. NECK: No masses, no JVD. CHEST: No chest wall deformity. LUNGS: Equal air entry with coarse rhonchi heard bilaterally. CVS: S1 and S2 normal with no audible murmur, regular rhythm. No extra heart sounds ABDOMEN: No hepatosplenomegaly, active bowel sounds, no guarding or rigidity. PEG tube noted with continuous enteral nutrition. SPINE: No scoliosis or deformity SKIN: No rashes CENTRAL NERVOUS SYSTEM: Difficult to assess, tone is normal in all 4 extre mities. EXTREMITIES: Contractures noted. There is no peripheral edema, clubbing, or cyanosis. Peripheral pulses are intact. Results - Laboratory Findings CBC and BMP: 02/11/25 08:03 02/11/25 08:03 ABG ABG pH 7.43 (7.35-7.45) 02/11/25 08:49 ABG pCO2 35 mmHg (35-45) 02/11/25 08:49 ABG pO2 119 mmHg (83-108) H 02/11/25 08:49 ABG O2 Saturation 99.0 % (94-97) H 02/11/25 08:49 PT/INR, D-dimer PT 11.2 sec (10.0-12.5) 02/11/25 08:03 INR 1.0 (<1.2) 02/11/25 08:03 Abnormal lab findings: Abnormal Labs 02/11/25 02/11/25 02/11/25 08:03 08:03 08:03 WBC 14.01 H MCHC 31.3 L Immature Gran # 0.07 H Neutrophils # 11.62 H Lymphocytes # 0.74 L Monocytes # 1.26 H ABG pO2 ABG O2 Saturation Chloride 113 H Carbon Dioxide 21 L BUN 29 H Glucose 119 H Troponin I 0.044 H* Albumin 3.3 L Urine Protein Urine Blood Ur Leukocyte Esterase Urine RBC Urine WBC Urine Bacteria 02/11/25 02/11/25 02/11/25 08:32 08:49 12:37 WBC MCHC Immature Gran # Neutrophils # Lymphocytes # Monocytes # ABG pO2 119 H ABG O2 Saturation 99.0 H Chloride Carbon Dioxide BUN Glucose Troponin I 0.047 H* Albumin Urine Protein 1+ H Urine Blood Moderate H Ur Leukocyte Esterase Large H Urine RBC 167 H Urine WBC 116 H Urine Bacteria Few H 02/11/25 15:25 WBC MCHC Immature Gran # Neutrophils # Lymphocytes # Monocytes # ABG pO2 ABG O2 Saturation Chloride Carbon Dioxide BUN Glucose Troponin I 0.043 H* Albumin Urine Protein Urine Blood Ur Leukocyte Esterase Urine RBC Urine WBC Urine Bacteria - Diagnostic Findings Chest x-ray: image reviewed CT scan - chest: image reviewed Assessment and Plan Plan: Urinary tract infection, likely sepsis with secondary gram-negative infection. Acute hypoxic respiratory failure, secondary to above, currently on 2 L. No reported aspiration. No clear indication for underlying pneumonia. Acute leukocytosis secondary to above, Elevated troponins, likely type II [place] History of multiple sclerosis History of dysphagia, with PEG tube and enteral nutrition History of neurogenic bladder with chronic indwelling urinary catheter and frequent urinary tract infections History of seizure disorder History of dementia Poor overall functional performance based on the above-mentioned multiple comorbidities Plan: Obtain urine cultures and blood cultures Continue with IV Invanz, vancomycin was also added Aspiration precautions Titrate oxygen for saturation above 90%, currently on 2 L Continued on nutritional support Via PEG tube Lovenox for DVT prophylaxis Overall prognosis remains poor Plan is to return t for scop Time with Patient: Greater than 30
--- NOTE | 2025-02-11 21:16 | P.GSCN ---
History of Present Illness Consult date: 02/11/25 Reason for Consult: Penile erosion Requesting physician: Dara Crowe History of present illness: The patient is a 64-year-old white male with progressive MS. He is nonverbal and has both a PEG feeding tube and a chronic indwelling Stein catheter (for chronic urinary retention). He was last seen in our office in October [address] Abebe. Ventral erosion of the urethra was noted at that time. There were issues related to debris within the urine, and the patient was started on Renacidin irrigation at that time. Placement of a suprapubic cystostomy tube was discussed at that time. He is now admitted with altered mental status, and there was concern regarding a possible UTI. CT scan of the abdomen and pelvis shows a 2 mm nonobstructing left renal calculus but no other urologic abnormalities are seen. We are consulted due to Stein catheter malfunction and urethral erosion. The patient appears comfortable but is nonverbal. Review of Systems ROS unobtainable: due to mental status Past Medical History Past Medical History: Deep Vein Thrombosis (DVT), GERD/Reflux, Hypertension, Musculoskeletal Disorder, Neurologic Disorder, Pneumonia, Seizure Disorder, Skin Disorder Additional Past Medical History / Comment(s): Pt diagnosed with MS at the age of 39 yrs, seizure/pneumonia/UTI with sepsis/respirtory failure/vented, cognitive impairment, sister states when he is feeling well he could speak a few words/nod head appropriately/give thumbs up/roll eyes but when ill is nonverbal, pt has dysphagia/NPO with peg tube, contractures, last seizure 07/2020, trigeminal neuralgia, dysarthria/anarthria/neurogenic bladder with IDC-UTIs/sepsis, multiple pneumonias, recent seizure-last one 07/03/20, incontinent of stool, pt has had decubitus ulcer coccyx-sister unsure of skin condition at this time, past anemia r/t heparin/epistaxiis which involved nasal packing/transfusions, DVT bilateral arms, hypoxia, oxygen at 2L/NC, L femoral head fracture History of Any Multi-Drug Resistant Organisms: ESBL, MRSA Year Discovered:: 01/02/25-ESBL; 03/09/21-MRSA MDRO Source:: ESBL-urine; MRSA-abdomen/pegsite Past Surgical History: Tonsillectomy Additional Past Surgical History / Comment(s): Gastrostomy, peg tube, I&D coccyx decubitius, bronchoscopy, bilateral lasik eye surgery. Past Anesthesia/Blood Transfusion Reactions: No Reported Reaction Additional Past Anesthesia/Blood Transfusion Reaction / Comm: Pt has received blood in past without reaction. Past Psychological History: Depression Smoking Status: Never smoker Past Alcohol Use History: None Reported Past Drug Use History: None Reported - Past Family History Father Family Medical History: Myocardial Infarction ([place]) Mother Family Medical History: Hypertension, Myocardial Infarction ([place]) Additional Family Medical History / Comment(s): Mother of a [place] at the age of 73 yrs. Medications and Allergies Home Medications Medication Instructions Recorded Confirmed Type Aspirin 81 mg PEG/G-TUBE DAILY 11/27/20 02/11/25 History Acetaminophen Tab [Tylenol] 650 mg PEG/G-TUBE Q4H PRN 06/13/21 02/11/25 History Metoprolol Tartrate [Lopressor] 50 mg PEG/G-TUBE BID 06/13/21 02/11/25 History carBAMazepine [carBAMazepine Oral 100 mg PEG/G-TUBE TID 07/02/21 02/11/25 History Susp] Lactulose 20 gm PEG/G-TUBE TID 01/03/22 02/11/25 History Scopolamine [Scopolamine 1 MG/72 1 patch TRANSDERM Q72H 01/03/22 02/11/25 History HR patch] oxyBUTYnin chloride 5 mg PEG/G-TUBE DAILY 12/19/22 02/11/25 History Famotidine [Pepcid] 20 mg PEG/G-TUBE DAILY 07/14/23 02/11/25 History Ipratropium-Albuterol Nebulize 3 ml INHALATION RT-TID 11/18/23 02/11/25 History [Duoneb 0.5 mg-3 mg/3 ml Soln] Lacosamide [Vimpat Oral Soln] 150 mg PEG/G-TUBE BID 11/18/23 02/11/25 History Baclofen 5 mg PEG/G-TUBE TID 07/25/24 02/11/25 History amantadine HCL [Amantadine] 100 mg PEG/G-TUBE DAILY 07/25/24 02/11/25 History bisacodyL [Dulcolax] 10 mg RECTAL DAILY PRN 07/25/24 02/11/25 History Sennosides [Senokot] 8.6 mg PEG/G-TUBE BID #60 tab 10/28/24 02/11/25 Rx Losartan [Cozaar] 12.5 mg PEG/G-TUBE DAILY 02/11/25 02/11/25 History Omeprazole 20 mg PEG/G-TUBE DAILY 02/11/25 02/11/25 History Uti-Stat Oral 30 ml PEG/G-TUBE DAILY 02/11/25 02/11/25 History Liquid(Cranberry-Vitamin C-Inulin) Allergies Allergy/AdvReac Type Severity Reaction Status Date / Time meropenem [From Merrem] Allergy Rash/Hives Verified 02/11/25 10:52 ceftolozane [From Zerbaxa] AdvReac Rapid Verified 02/11/25 10:52 Heart Rate tazobactam [From Zerbaxa] AdvReac Rapid Verified 02/11/25 10:52 Heart Rate Surgical - Exam Vital Signs Temp Pulse Resp BP Pulse Ox 99.3 F 90 34 H 153/101 99 02/11/25 07:52 02/11/25 07:52 02/11/25 07:52 02/11/25 07:52 02/11/25 07:52 - General well developed, well nourished, no distress - Respiratory normal respiratory effort - Abdomen Soft, non-tender, distended, no mass. - Genitourinary The ventral aspect of the phallus is eroded down to the penoscrotal angle. The scrotum and testes are normal. A Stein catheter is in place. There is appears to be some urinary drainage around the catheter. Results - Labs 02/11/25 08:03 02/11/25 08:03 Abnormal Lab Results - Last 24 Hours (Table) 02/11/25 02/11/25 02/11/25 Range/Units 08:03 08:03 08:03 WBC 14.01 H (4.50-10.00) 10*3/uL MCHC 31.3 L (32.0-37.0) g/dL Immature Gran # 0.07 H (0.00-0.04) 10*3/uL Neutrophils # 11.62 H (1.80-7.70) 10*3/uL Lymphocytes # 0.74 L (0.90-5.00) 10*3/uL Monocytes # 1.26 H (0.20-1.00) 10*3/uL ABG pO2 (83-108) mmHg ABG O2 Saturation (94-97) % Chloride 113 H (98-107) mmol/L Carbon Dioxide 21 L (22-30) mmol/L BUN 29 H (9-20) mg/dL Glucose 119 H (74-99) mg/dL Troponin I 0.044 H* (0.000-0.034) ng/mL Albumin 3.3 L (3.5-5.0) g/dL Urine Protein (Negative) Urine Blood (Negative) Ur Leukocyte Esterase (Negative) Urine RBC (0-5) /hpf Urine WBC (0-5) /hpf Urine Bacteria (None) /hpf 02/11/25 02/11/25 02/11/25 Range/Units 08:32 08:49 12:37 WBC (4.50-10.00) 10*3/uL MCHC (32.0-37.0) g/dL Immature Gran # (0.00-0.04) 10*3/uL Neutrophils # (1.80-7.70) 10*3/uL Lymphocytes # (0.90-5.00) 10*3/uL Monocytes # (0.20-1.00) 10*3/uL ABG pO2 119 H (83-108) mmHg ABG O2 Saturation 99.0 H (94-97) % Chloride (98-107) mmol/L Carbon Dioxide (22-30) mmol/L BUN (9-20) mg/dL Glucose (74-99) mg/dL Troponin I 0.047 H* (0.000-0.034) ng/mL Albumin (3.5-5.0) g/dL Urine Protein 1+ H (Negative) Urine Blood Moderate H (Negative) Ur Leukocyte Esterase Large H (Negative) Urine RBC 167 H (0-5) /hpf Urine WBC 116 H (0-5) /hpf Urine Bacteria Few H (None) /hpf 02/11/25 Range/Units 15:25 WBC (4.50-10.00) 10*3/uL MCHC (32.0-37.0) g/dL Immature Gran # (0.00-0.04) 10*3/uL Neutrophils # (1.80-7.70) 10*3/uL Lymphocytes # (0.90-5.00) 10*3/uL Monocytes # (0.20-1.00) 10*3/uL ABG pO2 (83-108) mmHg ABG O2 Saturation (94-97) % Chloride (98-107) mmol/L Carbon Dioxide (22-30) mmol/L BUN (9-20) mg/dL Glucose (74-99) mg/dL Troponin I 0.043 H* (0.000-0.034) ng/mL Albumin (3.5-5.0) g/dL Urine Protein (Negative) Urine Blood (Negative) Ur Leukocyte Esterase (Negative) Urine RBC (0-5) /hpf Urine WBC (0-5) /hpf Urine Bacteria (None) /hpf Diabetes panel 02/11/25 Range/Units 08:03 Sodium 143 (137-145) mmol/L Potassium 4.6 (3.5-5.1) mmol/L Chloride 113 H (98-107) mmol/L Carbon Dioxide 21 L (22-30) mmol/L BUN 29 H (9-20) mg/dL Creatinine 0.71 (0.66-1.25) mg/dL Glucose 119 H (74-99) mg/dL Calcium 8.6 (8.4-10.2) mg/dL AST 28 (17-59) U/L ALT 30 (4-49) U/L Alkaline Phosphatase 102 (38-126) U/L Total Protein 6.6 (6.3-8.2) g/dL Albumin 3.3 L (3.5-5.0) g/dL Calcium panel 02/11/25 Range/Units 08:03 Calcium 8.6 (8.4-10.2) mg/dL Albumin 3.3 L (3.5-5.0) g/dL Pituitary panel 02/11/25 Range/Units 08:03 Sodium 143 (137-145) mmol/L Potassium 4.6 (3.5-5.1) mmol/L Chloride 113 H (98-107) mmol/L Carbon Dioxide 21 L (22-30) mmol/L BUN 29 H (9-20) mg/dL Creatinine 0.71 (0.66-1.25) mg/dL Glucose 119 H (74-99) mg/dL Calcium 8.6 (8.4-10.2) mg/dL Adrenal panel 02/11/25 Range/Units 08:03 Sodium 143 (137-145) mmol/L Potassium 4.6 (3.5-5.1) mmol/L Chloride 113 H (98-107) mmol/L Carbon Dioxide 21 L (22-30) mmol/L BUN 29 H (9-20) mg/dL Creatinine 0.71 (0.66-1.25) mg/dL Glucose 119 H (74-99) mg/dL Calcium 8.6 (8.4-10.2) mg/dL Total Bilirubin 0.5 (0.2-1.3) mg/dL AST 28 (17-59) U/L ALT 30 (4-49) U/L Alkaline Phosphatase 102 (38-126) U/L Total Protein 6.6 (6.3-8.2) g/dL Albumin 3.3 L (3.5-5.0) g/dL - Imaging CT scan - abdomen: report reviewed, image reviewed Assessment and Plan (1) Retention of urine, unspecified Current Visit: Yes Status: Acute Code(s): R33.9 - RETENTION OF URINE, UNSPECIFIED SNOMED Code(s): 374575839 Plan: I would suggest that the Stein catheter be changed. Regarding a suprapubic cystostomy tube, the patient is as likely to experience leakage around a suprapubic tube as a Stein catheter. His body habitus could make placement of a suprapubic tube difficult, but it would be reasonable to consider this if the leakage around the catheter persists. The ventral erosion of the penis is due to the chronic indwelling catheter, and there is no treatment for this. Time with Patient: Greater than 30
[2025-02-11] MEDS: LACOSAMIDE 50 MG TABLET PO SCH (22:19)
[2025-02-11] MEDS: METOPROLOL TARTRATE 50 MG TAB PEG/G-TUBE SCH (22:20)
[2025-02-11] MEDS: VANCOMYCIN 1,500 MG in SODIUM CHLORIDE 0.9% 500 ML 500 ML IVPB SCH (22:20)
--- NOTE | 2025-02-12 01:39 | HP ---
HISTORY AND PHYSICAL CHIEF COMPLAINT: Change in mental status. HISTORY OF PRESENT ILLNESS: This 64-year-old gentleman with a past medical history of significant MS, had PEG tube and indwelling Stein catheter. The patient had previous history of sepsis associated with pneumonia versus catheter-associated UTI. Currently, the patient is lethargic. Unable to communicate. The possibility of worsening UTI is considered. The patient is being started on broad-spectrum IV antibiotics. Most history was taken from discussion with the ER physician and review of the chart. PAST MEDICAL HISTORY: Reviewed, includes MS, history of DVT, pneumonia, seizure disorder. Rest of the chart is also reviewed. HOME MEDICATIONS: Reviewed include metoprolol. Dose and rest of medications reviewed. ALLERGIES: Reviewed include meropenem. FAMILY HISTORY: Could not be taken. SOCIAL HISTORY: Could not be taken. REVIEW OF SYSTEMS: Could not be taken. PHYSICAL EXAMINATION: VITAL SIGNS: Pulse is 90, blood pressure 117/80, respirations 20. HEENT: Conjunctivae normal. CHEST: Few scattered rhonchi. ABDOMEN: Soft, nontender. Distended. PEG tube in-situ. EXTREMITIES: Legs, no edema. No could not be examined completely. LABORATORY DATA: WBC 14. Troponin 0.044, indeterminate. ASSESSMENT: 1. Possible sepsis with urinary tract infection. 2. Abdominal distention with possible fecal impaction. 3. History of deep vein thrombosis. 4. Hypertension. 6. History of seizure disorder. 7. History of severe multiple sclerosis. 8. History of extended-spectrum beta-lactamases and methicillin-resistant Staphylococcus aureus. RECOMMENDATION: This 64-year-old gentleman presented with multiple complex medical issues. We will monitor the patient closely. We will initiate ertapenem/Invanz. Otherwise, obtain cultures. Recommend Infectious Disease evaluation. I would also recommend bronchodilators, resume the home medications. Pulmonary evaluation. We will monitor closely with Cardiology as well. Overall prognosis extremely guarded because of multiple complex medical conditions. See orders for details. MMODL / IJN: [id number] / JOSE MIGUEL
[2025-02-12 08:08] LABS: Basophils # (A) 0.02 10*3/uL (0.00-0.10); Basophils % (A) 0.2 %; Eosinophils # (A) 0.02 10*3/uL (0.04-0.35); Eosinophils % (A) 0.2 %; HCT 45.6 % (39.6-50.0); HGB 13.9 g/dL (13.0-17.0); Lymphocytes % (A) 11.4 %; MCH 26.9 pg (27.0-32.0); MCHC 30.5 g/dL (32.0-37.0); MCV 88.4 fL (80.0-97.0); Mean Platelet Volume 11.7 fL (9.5-12.2); Monocytes % (A) 10.4 %; Neutrophils # (A) 7.46 10*3/uL (1.80-7.70); Neutrophils % (A) 77.2 %; Platelet Count 328 10*3/uL (140-440); RBC 5.16 10*6/uL (4.40-5.60); RDW 16.3 % (11.5-14.5); WBC 9.66 10*3/uL (4.50-10.00)
[2025-02-12 08:17] LABS: ALT 31 U/L (4-49); African American GFR (CKD) >90 (>60 ml/min/1.73 sqM); Anion Gap 9 mmol/L; Blood Urea Nitrogen 19 mg/dL (9-20); Calcium 8.5 mg/dL (8.4-10.2); Carbon Dioxide 23 mmol/L (22-30); Chloride 111 mmol/L (98-107); Glucose 82 mg/dL (74-99); Non-African American GFR(CKD) >90 (>60 ml/min/1.73 sqM); Sodium 143 mmol/L (137-145)
--- NOTE | 2025-02-12 08:26 | XR ---
EXAMINATION TYPE: XR chest 1V portable DATE OF EXAM: 02/12/2025 7:11 AM COMPARISON: 02/11/2025 CLINICAL INDICATION: Male, 64 years old with history of pneumonia, , FINDINGS: Heart mildly enlarged. Interstitial densities persist. No sizable pleural effusion on frontal view. IMPRESSION: Mild cardiomegaly and persistent interstitial opacities. Incidentally, we note tracheomalacia on the patient's CT scan from yesterday. [facility], Workstation: [id number], 02/12/2025 8:23 AM
[2025-02-12 08:31] LABS: AST 49 U/L (17-59); Albumin 3.4 g/dL (3.5-5.0); Alkaline Phosphatase 66 U/L (38-126); Potassium 5.9 mmol/L (3.5-5.1); Total Protein 6.9 g/dL (6.3-8.2)
[2025-02-12 08:32] LABS: Total Bilirubin 0.9 mg/dL (0.2-1.3)
[2025-02-12] MEDS: LOSARTAN 25 MG TAB PEG/G-TUBE SCH (08:49)
[2025-02-12] MEDS: ENOXAPARIN 40 MG/0.4 ML SYRINGE SQ SCH (08:51)
[2025-02-12] MEDS: ASPIRIN 81 MG PEG/G-TUBE SCH (08:51)
[2025-02-12] MEDS ORDERED: LEVOFLOXACIN 750 MG TAB PEG/G-TUBE SCH (09:00)
[2025-02-12 11:30] LABS: Glucose,Whole Blood 76 mg/dL (70-110)
--- NOTE | 2025-02-12 11:35 | P.CRDCN ---
History of Present Illness History of present illness: HISTORY OF PRESENT ILLNESS: This is a 64-year-old male with a past medical history significant for multiple sclerosis, UTI, cognitive impairment, PEG tube, seizures, decubitus ulcer, DVT, depression, and ESBL. Patient does not follow with a cloth hauler. We have been asked to see the patient in consultation for elevated troponins. Patient examined at the bedside. Patient is nonverbal at baseline. There is no family present. He is admitted to the hospital secondary to urinary tract infection. He is a long-term resident of [facility]. He appears to be resting in bed comfortably. Patient was found to have elevated troponins of 0.4 x 3 draws. EKG without signs of acute ischemia. Echocardiogram completed earlier this year revealing ejection fraction 35 to 40%, moderately reduced global ventricular systolic function, mild MR, trace AR, mild TR REVIEW OF SYSTEMS: At the time of my exam: Unable to obtain the review of systems secondary to altered mental status PHYSICAL EXAM: VITAL SIGNS: Reviewed. GENERAL: Well-developed in no acute distress. HEENT: Head is normocephalic. Pupils are equal, round. Sclerae anicteric. Mucous membranes of the mouth are moist. Neck supple. No JVD or thyromegaly LUNGS: Respirations even and unlabored. Lungs with bilateral rhonchi HEART: Regular rate and rhythm. S1 and S2 heard. ABDOMEN: Soft. Nondistended. Nontender. EXTREMITIES: Normal range of motion. No clubbing or cyanosis. Peripheral pulses intact. No lower extremity edema NEUROLOGIC: Awake and alert. Nonverbal. ASSESSMENT: Urinary tract infection Sepsis Elevated troponins, flat, type II [place] secondary to sepsis, no evidence of acute coronary syndrome Cardiomyopathy, 35 to 40%, ischemic versus nonischemic History of multiple sclerosis History of cognitive impairment History of PEG tube insertion History of seizures History of decubitus ulcer History of DVT History of depression History of ESBL Nonverbal at baseline PLAN: An acute coronary event has been ruled out No need to repeat echocardiogram as this was performed in November 2024 No further inpatient recommendations from a cardiac standpoint Patient can be transferred off of 3 S. from a cardiac perspective We will sign off. Please reconsult if needed. Nurse practitioner note has been reviewed by physician. Signing provider agrees with the documented findings, assessment, and plan of care documented by SUPPLEMENTAL NURSE as a scribe. Past Medical History Past Medical History: Deep Vein Thrombosis (DVT), GERD/Reflux, Hypertension, Musculoskeletal Disorder, Neurologic Disorder, Pneumonia, Seizure Disorder, Skin Disorder Additional Past Medical History / Comment(s): Pt diagnosed with MS at the age of 39 yrs, seizure/pneumonia/UTI with sepsis/respirtory failure/vented, cognitive impairment, sister states when he is feeling well he could speak a few words/nod head appropriately/give thumbs up/roll eyes but when ill is nonverbal, pt has dysphagia/NPO with peg tube, contractures, last seizure 07/2020, trigeminal neuralgia, dysarthria/anarthria/neurogenic bladder with IDC-UTIs/sepsis, multiple pneumonias, recent seizure-last one 07/03/20, incontinent of stool, pt has had decubitus ulcer coccyx-sister unsure of skin condition at this time, past anemia r/t heparin/epistaxiis which involved nasal packing/transfusions, DVT bilateral arms, hypoxia, oxygen at 2L/NC, L femoral head fracture History of Any Multi-Drug Resistant Organisms: ESBL, MRSA Date of last positivie culture/infection: 01/02/25-ESBL; 03/09/21-MRSA MDRO Source:: ESBL-urine; MRSA-abdomen/pegsite Past Surgical History: Tonsillectomy Additional Past Surgical History / Comment(s): Gastrostomy, peg tube, I&D coccyx decubitius, bronchoscopy, bilateral lasik eye surgery. Past Anesthesia/Blood Transfusion Reactions: No Reported Reaction Additional Past Anesthesia/Blood Transfusion Reaction / Comment(s): Pt has received blood in past without reaction. Past Psychological History: Depression Additional Psychological History / Comment(s): Pt resides at [facility]. He normally is in bed/amita lift to wheelchair. Has peg/IDC Smoking Status: Unknown if ever smoked Past Alcohol Use History: None Reported Past Drug Use History: None Reported - Past Family History Father Family Medical History: Myocardial Infarction ([place]) Mother Family Medical History: Hypertension, Myocardial Infarction ([place]) Additional Family Medical History / Comment(s): Mother of a [place] at the age of 73 yrs. Medications and Allergies Home Medications Medication Instructions Recorded Confirmed Type Aspirin 81 mg PEG/G-TUBE DAILY 11/27/20 02/11/25 History Acetaminophen Tab [Tylenol] 650 mg PEG/G-TUBE Q4H PRN 06/13/21 02/11/25 History Metoprolol Tartrate [Lopressor] 50 mg PEG/G-TUBE BID 06/13/21 02/11/25 History carBAMazepine [carBAMazepine Oral 100 mg PEG/G-TUBE TID 07/02/21 02/11/25 History Susp] Lactulose 20 gm PEG/G-TUBE TID 01/03/22 02/11/25 History Scopolamine [Scopolamine 1 MG/72 1 patch TRANSDERM Q72H 01/03/22 02/11/25 History HR patch] oxyBUTYnin chloride 5 mg PEG/G-TUBE DAILY 12/19/22 02/11/25 History Famotidine [Pepcid] 20 mg PEG/G-TUBE DAILY 07/14/23 02/11/25 History Ipratropium-Albuterol Nebulize 3 ml INHALATION RT-TID 11/18/23 02/11/25 History [Duoneb 0.5 mg-3 mg/3 ml Soln] Lacosamide [Vimpat Oral Soln] 150 mg PEG/G-TUBE BID 11/18/23 02/11/25 History Baclofen 5 mg PEG/G-TUBE TID 07/25/24 02/11/25 History amantadine HCL [Amantadine] 100 mg PEG/G-TUBE DAILY 07/25/24 02/11/25 History bisacodyL [Dulcolax] 10 mg RECTAL DAILY PRN 07/25/24 02/11/25 History Sennosides [Senokot] 8.6 mg PEG/G-TUBE BID #60 tab 10/28/24 02/11/25 Rx Losartan [Cozaar] 12.5 mg PEG/G-TUBE DAILY 02/11/25 02/11/25 History Omeprazole 20 mg PEG/G-TUBE DAILY 02/11/25 02/11/25 History Uti-Stat Oral 30 ml PEG/G-TUBE DAILY 02/11/25 02/11/25 History Liquid(Cranberry-Vitamin C-Inulin) Allergies Allergy/AdvReac Type Severity Reaction Status Date / Time meropenem [From Merrem] Allergy Rash/Hives Verified 02/11/25 10:52 ceftolozane [From Zerbaxa] AdvReac Rapid Verified 02/11/25 10:52 Heart Rate tazobactam [From Zerbaxa] AdvReac Rapid Verified 02/11/25 10:52 Heart Rate Physical Exam Vitals: Vital Signs Temp Pulse Pulse Resp BP BP Pulse Ox 02/12/25 08:37 94 02/12/25 08:22 87 02/12/25 08:05 47 L 02/12/25 07:38 97.9 F 92 16 123/75 97 02/12/25 04:00 77 16 123/79 95 02/12/25 02:00 78 20 02/12/25 00:00 97.1 F L 82 16 128/85 96 02/11/25 18:52 97.8 F 83 20 116/84 98 02/11/25 16:17 88 02/11/25 16:09 86 02/11/25 12:13 94 02/11/25 12:03 90 Intake and Output 02/11/25 02/12/25 02/12/25 22:59 06:59 14:59 Intake Total 760 10 Balance 760 10 Intake: IV 10 Invasive Line 2 10 Intake, IV Titration 760 Amount Lactated Ringers 1,000 ml 260 @ 130 mls/hr IV .Q7H42M [facility] Rx#:[id number] Vancomycin 1,500 mg In 500 Sodium Chloride 0.9% 500 ml 500 ml @ 333.333 mls/ hr IVPB Q12H [facility] Rx#: [id number] Other: Voiding Method Indwelling Catheter # Voids 1 # Bowel Movements 1 Weight 72 kg Results 02/12/25 07:27 02/12/25 07:27 Cardiac Enzymes 02/11/25 02/11/25 02/12/25 Range/Units 12:37 15:25 07:27 AST 49 (17-59) U/L Troponin I 0.047 H* 0.043 H* (0.000-0.034) ng/mL CBC 02/12/25 Range/Units 07:27 WBC 9.66 (4.50-10.00) 10*3/uL RBC 5.16 (4.40-5.60) 10*6/uL Hgb 13.9 (13.0-17.0) g/dL Hct 45.6 (39.6-50.0) % Plt Count 328 (140-440) 10*3/uL Comprehensive Metabolic Panel 02/12/25 Range/Units 07:27 Sodium 143 (137-145) mmol/L Potassium 5.9 H (3.5-5.1) mmol/L Chloride 111 H (98-107) mmol/L Carbon Dioxide 23 (22-30) mmol/L BUN 19 (9-20) mg/dL Creatinine 0.60 L (0.66-1.25) mg/dL Glucose 82 (74-99) mg/dL Calcium 8.5 (8.4-10.2) mg/dL AST 49 (17-59) U/L ALT 31 (4-49) U/L Alkaline Phosphatase 66 (38-126) U/L Total Protein 6.9 (6.3-8.2) g/dL Albumin 3.4 L (3.5-5.0) g/dL Current Medications Generic Name Dose Route Start Last Admin Trade Name Freq PRN Reason Stop Dose Admin Albuterol/Ipratropium 3 ml 02/11/25 09:53 Ipratropium-Albuterol 3 Ml Neb INHALATION RT-Q2H PRN Shortness Of Breath Or Wheezing Albuterol/Ipratropium 3 ml 02/11/25 12:00 02/12/25 08:05 Ipratropium-Albuterol 3 Ml Neb INHALATION 3 ml RT-QID [facility] Administration Amantadine HCl 100 mg 02/11/25 13:45 02/12/25 10:17 Amantadine Hcl 100 Mg Cap PO 100 mg DAILY [facility] Administration Aspirin 81 mg 02/12/25 09:00 02/12/25 08:51 Aspirin 81 Mg PEG/G-TUBE 81 mg DAILY [facility] Administration Baclofen 5 mg 02/11/25 16:00 02/12/25 08:50 Baclofen 10 Mg Tab PEG/G-TUBE 5 mg TID [facility] Administration Budesonide 1 mg 02/11/25 13:37 02/12/25 08:05 Budesonide 1 Mg/2 Ml Nebu INHALATION 1 mg RT-BID [facility] Administration Carbamazepine 100 mg 02/11/25 16:00 02/12/25 08:53 Carbamazepine Chew 100 Mg Chew PO 100 mg TID [facility] Administration Enoxaparin Sodium 40 mg 02/12/25 09:00 02/12/25 08:51 Enoxaparin 40 Mg/0.4 Ml Syringe SQ 40 mg DAILY [facility] Administration Formoterol Fumarate 20 mcg 05/14/25 13:37 02/12/25 08:05 Formoterol Fumarate 20 Mcg/2 Ml Nebu INHALATION 20 mcg RT-BID [facility] Administration Lactated Ringer's 1,000 mls @ 130 mls/hr 02/11/25 09:45 02/12/25 01:50 Lactated Ringers IV 130 mls/hr .Q7H42M [facility] Administration Ertapenem 1 gm/ Sodium 50 mls @ 100 mls/hr 02/11/25 10:15 02/12/25 10:17 Chloride IVPB 100 mls/hr DAILY [facility] Administration Protocol Vancomycin HCl 1,500 mg/ 500 mls @ 333.333 mls/hr 02/11/25 21:00 02/12/25 08:48 Sodium Chloride IVPB 333.333 mls/hr Q12H [facility] Administration Lacosamide 150 mg 02/11/25 21:00 02/12/25 08:49 Lacosamide 50 Mg Tablet PO 150 mg BID [facility] Administration Lactulose 20 gm 02/11/25 16:00 02/12/25 08:49 Lactulose 20 Gm/30 Ml Cup PEG/G-TUBE 20 gm TID [facility] Administration Losartan Potassium 12.5 mg 02/12/25 09:00 02/12/25 08:49 Losartan 25 Mg Tab PEG/G-TUBE 12.5 mg DAILY [facility] Administration Methylprednisolone Sodium Succinate 40 mg 02/11/25 16:00 02/12/25 08:49 Methylprednisolone Sod Succi 40 Mg/Ml 1 Ml Vial IV 40 mg Q8HR [facility] Administration Metoprolol Tartrate 50 mg 02/11/25 21:00 02/12/25 08:52 Metoprolol Tartrate 50 Mg Tab PEG/G-TUBE 50 mg BID [facility] Administration Miscellaneous Information 1 each 02/11/25 08:37 Pneumonia Protocol Utilized 1 Each Misc PO ONCE PRN Per Protocol Miscellaneous Information 0 each 02/13/25 08:00 Vancomycin Trough Due 1 Each Misc MISCELLANE 02/13/25 08:01 DIRECTED ONE Naloxone HCl 0.2 mg 02/11/25 11:07 Naloxone 0.4 Mg/Ml 1 Ml Vial IV Q2M PRN Opioid Reversal Ondansetron HCl 4 mg 02/11/25 11:07 Ondansetron 4 Mg/2 Ml Vial IVP Q8HR PRN Nausea And Vomiting Pantoprazole Sodium 40 mg 02/11/25 13:45 02/12/25 08:49 Pantoprazole 40 Mg/10 Ml Vial IVP 40 mg DAILY [facility] Administration Intake and Output 02/11/25 02/12/25 02/12/25 22:59 06:59 14:59 Intake Total 760 10 Balance 760 10 Intake: IV 10 Invasive Line 2 10 Intake, IV Titration 760 Amount Lactated Ringers 1,000 ml 260 @ 130 mls/hr IV .Q7H42M [facility] Rx#:[id number] Vancomycin 1,500 mg In 500 Sodium Chloride 0.9% 500 ml 500 ml @ 333.333 mls/ hr IVPB Q12H [facility] Rx#: [id number] Other: Voiding Method Indwelling Catheter # Voids 1 # Bowel Movements 1 Weight 72 kg 02/12/25 07:27 02/12/25 07:27
--- NOTE | 2025-02-12 12:44 | P.PN ---
Subjective Progress Note Date: 02/12/25 64-year-old male patient, advanced multiple sclerosis, nonverbal and paraplegic, presented to the emergency with increased lethargy, and suspected sepsis. The patient cannot volunteer any medical information. Based on my chart review, the patient has had frequent urine tract infections including a recent urine tract infection with a gram-negative ESBL producing Proteus Mirabella's. He has also had various urine tract infection with Enterococcus. No reported aspiration although pneumonia is still a concern. He has a PEG tube for enteral feeding and nutritional support and he has also a Stein catheter in place. His past medical history includes advanced multiple sclerosis, hypertension, previous history of DVTs, recurrent pneumonias and recurrent urine tract infection and history of seizure disorder. In the emergency, the patient was found to be mildly hypoxic and tachypneic. He was placed on oxygen at 2 L/min nasal cannula. He was also given IV fluids and he received lactated Ringe r x 3 L and he was started on a maintenance lactated Ringer 130 cc an hour. The patient was initially given Levaquin and vancomycin. I added IV Invanz based on his ESBL related gram-negative urinary tract infections. I also reviewed the chest x-ray. No acute abnormalities. No airspace disease or consolidation. CT scan of the chest was also done that was nondiagnostic for pulmonary embolism. Lung volumes were essentially small. There was large stool burden in the rectum and sigmoid colon and there was chronic left hip fracture with bone deformity. PEG tube is in good location. Nonobstructive left renal calculus. The white cell count of 14 hemoglobin 13.8 and a platelet count of 341. Blood gas showed a pH of 7.43 with a pCO2 of 35 and PO219. BUN is 29 with a creatinine of 0.7. Sodium levels at 143. proBNP level is 2010. Troponins at 0.04 respectively x 3. UA is abnormal. Urine tox is negative. Viral screen is negative and alcohol level is less than 10. On 02/12/2025, the patient is being seen for a follow-up. The patient is having some upper airway secretions. There is no clear indication for an underlying pneumonia. The patient has a urinary tract infection the patient is currently on IV Invanz. He remains NPO. The white cell count is at 9.6 with a hemoglobin 13.9 and a platelet count of 328. Sodium is at 143, BUN is 19 with a creatinine of 0.6. K level is at 5.9. The patient is hemodynamically stable. He is on room air oxygen. He is afebrile. He is nonverbal and chronically debilitated as measured due to advanced multiple sclerosis. Objective - Vital Signs Vital signs: Vital Signs Temp 97.9 F 02/12/25 07:38 Pulse 94 02/12/25 08:37 Resp 16 02/12/25 07:38 BP 123/75 02/12/25 07:38 Pulse Ox 97 02/12/25 07:38 FiO2 Intake & Output 02/11/25 02/12/25 02/12/25 18:59 06:59 18:59 Intake Total 1000 760 10 Output Total 800 Balance 200 760 10 Weight 94.1 kg 72 kg Intake: IV 10 Invasive Line 2 10 Intake, IV Titration 1000 760 Amount Lactated Ringers 1,000 ml 260 @ 130 mls/hr IV .Q7H42M COUNTS INCLUDE 234 BEDS AT THE [facility] Rx#:[id number] Lactated Ringers 1,000 ml 1000 @ 999 mls/hr IV .Q1H1M ONE Rx#:[id number] Vancomycin 1,500 mg In 500 Sodium Chloride 0.9% 500 ml 500 ml @ 333.333 mls/ hr IVPB Q12H COUNTS INCLUDE 234 BEDS AT THE [facility] Rx#: [id number] Output: Urine 800 Other: Voiding Method Indwelling Catheter # Voids 1 # Bowel Movements 1 - Exam GENERAL EXAM: Lethargic, debilitated 64-year-old male, on room air oxygen. Has a weak and congested cough. Does not follow commands. HEAD: Normocephalic and atraumatic EYES: Normal reaction of pupils, equal size. NOSE: Clear with pink turbinates. THROAT: No erythema or exudates. NECK: No masses, no JVD. CHEST: No chest wall deformity. LUNGS: Equal air entry with coarse rhonchi heard bilaterally. CVS: S1 and S2 normal with no audible murmur, regular rhythm. No extra heart sounds ABDOMEN: No hepatosplenomegaly, active bowel sounds, no guarding or rigidity. PEG tube noted with continuous enteral nutrition. SPINE: No scoliosis or deformity SKIN: No rashes CENTRAL NERVOUS SYSTEM: Difficult to assess, tone is normal in all 4 extremities. EXTREMITIES: Contractures noted. There is no peripheral edema, clubbing, or cyanosis. Peripheral pulses are intact. - Labs CBC & Chem 7: 02/12/25 07:27 02/12/25 07:27 Labs: Abnormal Lab Results - Last 24 Hours (Table) 02/11/25 02/11/25 02/11/25 Range/Units 08:32 12:37 15:25 MCH (27.0-32.0) pg MCHC (32.0-37.0) g/dL Immature Gran # (0.00-0.04) 10*3/uL Eosinophils # (0.04-0.35) 10*3/uL Potassium (3.5-5.1) mmol/L Chloride (98-107) mmol/L Creatinine (0.66-1.25) mg/dL Troponin I 0.047 H* 0.043 H* (0.000-0.034) ng/mL Albumin (3.5-5.0) g/dL Urine Protein 1+ H (Negative) Urine Blood Moderate H (Negative) Ur Leukocyte Esterase Large H (Negative) Urine RBC 167 H (0-5) /hpf Urine WBC 116 H (0-5) /hpf Urine Bacteria Few H (None) /hpf 02/12/25 02/12/25 Range/Units 07:27 07:27 MCH 26.9 L (27.0-32.0) pg MCHC 30.5 L (32.0-37.0) g/dL Immature Gran # 0.06 H (0.00-0.04) 10*3/uL Eosinophils # 0.02 L (0.04-0.35) 10*3/uL Potassium 5.9 H (3.5-5.1) mmol/L Chloride 111 H (98-107) mmol/L Creatinine 0.60 L (0.66-1.25) mg/dL Troponin I (0.000-0.034) ng/mL Albumin 3.4 L (3.5-5.0) g/dL Urine Protein (Negative) Urine Blood (Negative) Ur Leukocyte Esterase (Negative) Urine RBC (0-5) /hpf Urine WBC (0-5) /hpf Urine Bacteria (None) /hpf Assessment and Plan Plan: Urinary tract infection, likely sepsis with secondary gram-negative infection. The patient is currently on IV Invanz and the choice of antibiotics was done based on the previous history of ESBL producing gram-negative urinary tract infections Acute hypoxic respiratory failure, secondary to above, currently on room air oxygen. Does have some upper airway secretions Acute leukocytosis secondary to above, improving Elevated troponins, likely type II OR History of multiple sclerosis History of dysphagia, with PEG tube and enteral nutrition History of neurogenic bladder with chronic indwelling urinary catheter and frequent urinary tract infections History of seizure disorder History of dementia Poor overall functional performance based on the above-mentioned multiple comorbidities Plan: Obtain urine cultures and blood cultures, results are still pending Continue with IV Invanz, vancomycin Aspiration precautions Titrate oxygen for saturation above 90%, currently on room air oxygen Dietary were consulted and the patient can be started back on enteral feeding for nutritional support Lovenox for DVT prophylaxis Overall prognosis remains poor Time with Patient: Greater than 30
--- NOTE | 2025-02-12 16:04 | XR ---
EXAMINATION TYPE: XR abdomen acute w cxr DATE OF EXAM: 02/12/2025 3:57 PM COMPARISON: 02/12/2025 CLINICAL INDICATION: Male, 64 years old with history of fecal impaction bowel obstruction; PHH, pain TECHNIQUE: Two radiographic views of the abdomen (upright and supine) and a frontal chest radiograph were obtained. FINDINGS Heart mildly enlarged. Tortuous/ectatic thoracic aorta. Diffuse interstitial and vascular density wit hout casi consolidation or pleural effusion. No evidence for free intraperitoneal air. There appears to be a PEG tube in place. There appears to be prominent air distention of the sigmoid colon possibly dilated up to nearly 9 cm. Scattered mild to moderate stool proximal to this dilatation. No fecal impaction identified in the pelvis. Multiple pelvic phleboliths. Severe osteopenia. Chronic nonunited fracture deformity left femoral neck. IMPRESSION: 1. Mild cardiomegaly and interstitial changes. Correlate for mild CHF with pulmonary vascular congest ion. 2. No evidence for small bowel obstruction or free air. 3. Possible dilated sigmoid colon distended up to 9 cm. Findings could reflect a regional ileus. CT i f concern for more worrisome etiology such as sigmoid volvulus. 4. Mild to moderate stool proximal to this dilatation. 5. PEG tube noted. [facility], , 02/12/2025 4:02 PM
--- NOTE | 2025-02-12 16:09 | P.CONS ---
History of Present Illness - Reason for Consult Consult date: 02/11/25 UTI, sepsis Requesting physician: Kendrick Kc - Chief Complaint Mental status changes x 1 day - History of Present Illness Patient is a 64-year-old male with a past medical history significant for MS and bedbound state seizure disorder hypertension reflux DVT history of recurrent pneumonia and UTI patient long-term resident patient has been brought into the hospital for evaluation of mental status changes as the patient was found the morning of presentation to hospital be more lethargic with concern for UTI but the patient has been sent to her [facility] for further evaluation on presentation to the hospital he did have a low-grade fever of 99.3 F patient was not tachycardic or hypotensive not hypoxic patient did have a white count of 14.01 creatinine is 0.71 liver enzymes are normal troponin is mildly elevated urine is positive urine drug screen negative influenza RSV COVID testing negative patient did have a chest x-ray cardiomegaly with interstitial densities abdominal pelvis CT nondiagnostic for PE large stool burden no evide nce for focal consolidation or effusion, patient was started on Invanz 1 g daily infectious disease was consulted for further management of antibiotic and most information has been obtained from review of the chart patient unable to provide any history Review of Systems Positive point and negatives has been mentioned in the HPI, complete review of systems was performed and all other systems are negative Past Medical History Past Medical History: Deep Vein Thrombosis (DVT), GERD/Reflux, Hypertension, Musculoskeletal Disorder, Neurologic Disorder, Pneumonia, Seizure Disorder, Skin Disorder Additional Past Medical History / Comment(s): Pt diagnosed with MS at the age of 39 yrs, seizure/pneumonia/UTI with sepsis/respirtory failure/vented, cognitive impairment, sister states when he is feeling well he could speak a few words/nod head appropriately/give thumbs up/roll eyes but when ill is nonverbal, pt has dysphagia/NPO with peg tube, contractures, last seizure 07/2020, trigeminal neuralgia, dysarthria/anarthria/neurogenic bladder with IDC-UTIs/sepsis, multiple pneumonias, recent seizure-last one 07/03/20, incontinent of stool, pt has had decubitus ulcer coccyx-sister unsure of skin condition at this time, past anemia r/t heparin/epistaxiis which involved nasal packing/transfusions, DVT bilateral arms, hypoxia, oxygen at 2L/NC, L femoral head fracture History of Any Multi-Drug Resistant Organisms: ESBL, MRSA Year Discovered:: 01/02/25-ESBL; 03/09/21-MRSA MDRO Source:: ESBL-urine; MRSA-abdomen/pegsite Past Surgical History: Tonsillectomy Additional Past Surgical History / Comment(s): Gastrostomy, peg tube, I&D coccyx decubitius, bronchoscopy, bilateral lasik eye surgery. Past Anesthesia/Blood Transfusion Reactions: No Reported Reaction Additional Past Anesthesia/Blood Transfusion Reaction / Comm: Pt has received blood in past without reaction. Past Psychological History: Depression Smoking Status: Never smoker Past Alcohol Use History: None Reported Past Drug Use History: None Reported - Past Family History Father Family Medical History: Myocardial Infarction ([place]) Mother Family Medical History: Hypertension, Myocardial Infarction ([place]) Additional Family Medical History / Comment(s): Mother of a [place] at the age of 73 yrs. Medications and Allergies Home Medications Medication Instructions Recorded Confirmed Type Aspirin 81 mg PEG/G-TUBE DAILY 11/27/20 02/11/25 History Acetaminophen Tab [Tylenol] 650 mg PEG/G-TUBE Q4H PRN 06/13/21 02/11/25 History Metoprolol Tartrate [Lopressor] 50 mg PEG/G-TUBE BID 06/13/21 02/11/25 History carBAMazepine [carBAMazepine Oral 100 mg PEG/G-TUBE TID 07/02/21 02/11/25 History Susp] Lactulose 20 gm PEG/G-TUBE TID 01/03/22 02/11/25 History Scopolamine [Scopolamine 1 MG/72 1 patch TRANSDERM Q72H 01/03/22 02/11/25 History HR patch] oxyBUTYnin chloride 5 mg PEG/G-TUBE DAILY 12/19/22 02/11/25 History Famotidine [Pepcid] 20 mg PEG/G-TUBE DAILY 07/14/23 02/11/25 History Ipratropium-Albuterol Nebulize 3 ml INHALATION RT-TID 11/18/23 02/11/25 History [Duoneb 0.5 mg-3 mg/3 ml Soln] Lacosamide [Vimpat Oral Soln] 150 mg PEG/G-TUBE BID 11/18/23 02/11/25 History Baclofen 5 mg PEG/G-TUBE TID 07/25/24 02/11/25 History amantadine HCL [Amantadine] 100 mg PEG/G-TUBE DAILY 07/25/24 02/11/25 History bisacodyL [Dulcolax] 10 mg RECTAL DAILY PRN 07/25/24 02/11/25 History Sennosides [Senokot] 8.6 mg PEG/G-TUBE BID #60 tab 10/28/24 02/11/25 Rx Losartan [Cozaar] 12.5 mg PEG/G-TUBE DAILY 02/11/25 02/11/25 History Omeprazole 20 mg PEG/G-TUBE DAILY 02/11/25 02/11/25 History Uti-Stat Oral 30 ml PEG/G-TUBE DAILY 02/11/25 02/11/25 History Liquid(Cranberry-Vitamin C-Inulin) Allergies Allergy/AdvReac Type Severity Reaction Status Date / Time meropenem [From Merrem] Allergy Rash/Hives Verified 02/11/25 10:52 ceftolozane [From Zerbaxa] AdvReac Rapid Verified 02/11/25 10:52 Heart Rate tazobactam [From Zerbaxa] AdvReac Rapid Verified 02/11/25 10:52 Heart Rate Physical Exam Vitals: Vital Signs Temp Pulse Resp BP Pulse Ox 02/11/25 16:17 88 02/11/25 16:09 86 02/11/25 12:13 94 02/11/25 12:03 90 02/11/25 11:00 95 20 117/84 96 02/11/25 10:41 98 22 132/85 97 02/11/25 09:30 98.6 F 88 22 129/85 99 02/11/25 08:58 88 02/11/25 08:40 88 02/11/25 08:36 98.8 F 87 32 H 158/105 100 02/11/25 08:02 89 32 H 143/95 99 02/11/25 07:52 99.3 F 90 34 H 153/101 99 Intake and Output 02/11/25 02/11/25 02/11/25 06:59 14:59 22:59 Intake Total 1000 Output Total 800 Balance 200 Intake: Intake, IV Titration 1000 Amount Lactated Ringers 1,000 ml 1000 @ 999 mls/hr IV .Q1H1M ONE Rx#:[id number] Output: Urine 800 Other: Weight 94.1 kg GENERAL DESCRIPTION: Elderly male lying in bed, no distress. No tachypnea or accessory muscle of respiration use. HEENT: Shows Pallor , no scleral icterus. Oral mucous membrane is dry. NECK: Trachea central, no thyromegaly. LUNGS: Unlabored breathing. Coarse breath sounds bilaterally HEART: S1, S2, regular rate and rhythm. No loud murmur ABDOMEN: Soft, no tenderness , EXTREMITIES: No edema of feet. SKIN: No rash, no masses palpable. NEUROLOGICAL: The patient is lethargic orientation could not be determined Results CBC & Chem 7: 02/12/25 07:27 02/12/25 07:27 Labs: Abnormal Lab Results - Last 24 Hours (Table) 02/11/25 02/11/25 02/11/25 Range/Units 08:03 08:03 08:03 WBC 14.01 H (4.50-10.00) 10*3/uL MCHC 31.3 L (32.0-37.0) g/dL Immature Gran # 0.07 H (0.00-0.04) 10*3/uL Neutrophils # 11.62 H (1.80-7.70) 10*3/uL Lymphocytes # 0.74 L (0.90-5.00) 10*3/uL Monocytes # 1.26 H (0.20-1.00) 10*3/uL ABG pO2 (83-108) mmHg ABG O2 Saturation (94-97) % Chloride 113 H (98-107) mmol/L Carbon Dioxide 21 L (22-30) mmol/L BUN 29 H (9-20) mg/dL Glucose 119 H (74-99) mg/dL Troponin I 0.044 H* (0.000-0.034) ng/mL Albumin 3.3 L (3.5-5.0) g/dL Urine Protein (Negative) Urine Blood (Negative) Ur Leukocyte Esterase (Negative) Urine RBC (0-5) /hpf Urine WBC (0-5) /hpf Urine Bacteria (None) /hpf 02/11/25 02/11/25 02/11/25 Range/Units 08:32 08:49 12:37 WBC (4.50-10.00) 10*3/uL MCHC (32.0-37.0) g/dL Immature Gran # (0.00-0.04) 10*3/uL Neutrophils # (1.80-7.70) 10*3/uL Lymphocytes # (0.90-5.00) 10*3/uL Monocytes # (0.20-1.00) 10*3/uL ABG pO2 119 H (83-108) mmHg ABG O2 Saturation 99.0 H (94-97) % Chloride (98-107) mmol/L Carbon Dioxide (22-30) mmol/L BUN (9-20) mg/dL Glucose (74-99) mg/dL Troponin I 0.047 H* (0.000-0.034) ng/mL Albumin (3.5-5.0) g/dL Urine Protein 1+ H (Negative) Urine Blood Moderate H (Negative) Ur Leukocyte Esterase Large H (Negative) Urine RBC 167 H (0-5) /hpf Urine WBC 116 H (0-5) /hpf Urine Bacteria Few H (None) /hpf 02/11/25 Range/Units 15:25 WBC (4.50-10.00) 10*3/uL MCHC (32.0-37.0) g/dL Immature Gran # (0.00-0.04) 10*3/uL Neutrophils # (1.80-7.70) 10*3/uL Lymphocytes # (0.90-5.00) 10*3/uL Monocytes # (0.20-1.00) 10*3/uL ABG pO2 (83-108) mmHg ABG O2 Saturation (94-97) % Chloride (98-107) mmol/L Carbon Dioxide (22-30) mmol/L BUN (9-20) mg/dL Glucose (74-99) mg/dL Troponin I 0.043 H* (0.000-0.034) ng/mL Albumin (3.5-5.0) g/dL Urine Protein (Negative) Urine Blood (Negative) Ur Leukocyte Esterase (Negative) Urine RBC (0-5) /hpf Urine WBC (0-5) /hpf Urine Bacteria (None) /hpf Assessment and Plan (1) UTI (urinary tract infection) Current Visit: Yes Status: Acute Code(s): N39.0 - URINARY TRACT INFECTION, SITE NOT SPECIFIED SNOMED Code(s): 58285111 (2) Allergy to multiple antibiotics Current Visit: No Status: Acute Code(s): Z88.1 - ALLERGY STATUS TO OTHER ANTIBIOTIC AGENTS SNOMED Code(s): 721890092 (3) Sepsis Current Visit: Yes Status: Acute Code(s): A41.9 - SEPSIS, UNSPECIFIED ORGANISM SNOMED Code(s): 12271622 Plan: 1patient presented the hospital with sepsis in this patient who did have a heart rate of 94 elevated white count low-grade fever meeting currently for SIRS/sepsis source is likely catheter since UTI in this patient with a history of infection with ESBL pathogen will need to cover for resistant pathogen while waiting for the culture to finalize 2patient with multiple antibiotic ALLERGIES that would limit the number of antibiotic safe to use 3patient will be treated with Invanz 1 g daily while waiting for the culture to finalize We will follow on clinical condition and cultures to further adjust medication if needed Thank you for this consultation we will follow the patient along with you Dictation was produced using [employer] dictation software. please excuse any grammatical, word or spelling errors. Time with Patient: Greater than 30
--- NOTE | 2025-02-12 16:11 | P.PN ---
Subjective Progress Note Date: 02/12/25 Principal diagnosis: Reason for follow-up is sepsis/UTI Patient is a 64-year-old male with multiple comorbidities including MS bedbound state history of recurrent UTI admitted to hospital with sepsis concerning for UTI probably this consultation. On today's evaluation that is 02/12/2025, patient has been afebrile, patient is breathing comfortably and is currently on room air, patient is awake but nonverbal and cannot provide any history no vomiting or diarrhea has been reported. Patient white count normalized to 9.66 creatinine 0.60 cultures are pending Objective - Vital Signs Vital signs: Vital Signs Temp 97.9 F 02/12/25 07:38 Pulse 72 02/12/25 11:58 Resp 19 02/12/25 11:27 BP 139/77 02/12/25 11:27 Pulse Ox 97 02/12/25 11:27 FiO2 Intake & Output 02/11/25 02/12/25 02/12/25 18:59 06:59 18:59 Intake Total 1000 760 10 Output Total 800 Balance 200 760 10 Weight 94.1 kg 72 kg 72 kg Intake: IV 10 Invasive Line 2 10 Intake, IV Titration 1000 760 Amount Lactated Ringers 1,000 ml 260 @ 130 mls/hr IV .Q7H42M [facility] Rx#:[id number] Lactated Ringers 1,000 ml 1000 @ 999 mls/hr IV .Q1H1M ONE Rx#:[id number] Vancomycin 1,500 mg In 500 Sodium Chloride 0.9% 500 ml 500 ml @ 333.333 mls/ hr IVPB Q12H [facility] Rx#: [id number] Output: Urine 800 Other: Voiding Method Indwelling Catheter Indwelling Catheter # Voids 1 # Bowel Movements 1 - Exam GENERAL DESCRIPTION: An elderly male lying in bed in no distress RESPIRATORY SYSTEM: Unlabored breathing , coarse breath sounds bilaterally HEART: S1 S2 regular rate and rhythm , ABDOMEN: Soft , no tenderness EXTREMITIES: No edema feet - Labs CBC & Chem 7: 02/12/25 07:27 02/12/25 07:27 Labs: Abnormal Lab Results - Last 24 Hours (Table) 02/11/25 02/12/25 02/12/25 Range/Units : 07:27 07:27 MCH 26.9 L (27.0-32.0) pg MCHC 30.5 L (32.0-37.0) g/dL Immature Gran # 0.06 H (0.00-0.04) 10*3/uL Eosinophils # 0.02 L (0.04-0.35) 10*3/uL Potassium 5.9 H (3.5-5.1) mmol/L Chloride 111 H (98-107) mmol/L Creatinine 0.60 L (0.66-1.25) mg/dL Troponin I 0.043 H* (0.000-0.034) ng/mL Albumin 3.4 L (3.5-5.0) g/dL Microbiology - Last 24 Hours (Table) 02/11/25 08:11 Blood Culture - Preliminary Blood Assessment and Plan (1) Sepsis Current Visit: Yes Status: Acute Code(s): A41.9 - SEPSIS, UNSPECIFIED ORGANISM SNOMED Code(s): 09283286 (2) UTI (urinary tract infection) Current Visit: Yes Status: Acute Code(s): N39.0 - URINARY TRACT INFECTION, SITE NOT SPECIFIED SNOMED Code(s): 36169689 (3) Allergy to multiple antibiotics Current Visit: No Status: Acute Code(s): Z88.1 - ALLERGY STATUS TO OTHER ANTIBIOTIC AGENTS SNOMED Code(s): 138708349 Plan: 1patient presented the hospital with sepsis in this patient who did have a heart rate of 94 elevated white count low-grade fever meeting currently for SIRS/sepsis source is likely catheter since UTI in this patient with a history of infection with ESBL pathogen will need to cover for resistant pathogen while waiting for the culture to finalize 2patient with multiple antibiotic ALLERGIES that would limit the number of antibiotic safe to use 3patient did have improvement of white count we will treat with Invanz 1 g daily while waiting for the culture to finalize Dictation was produced using [employer] dictation software. please excuse any grammatical, word or spelling errors. Time with Patient: Less than 30
[2025-02-12 16:29] LABS: Glucose,Whole Blood 76 mg/dL (70-110)
--- NOTE | 2025-02-12 20:01 | XR ---
EXAMINATION TYPE: XR chest 1V portable DATE OF EXAM: 02/12/2025 7:48 PM COMPARISON: Acute abdominal series 02/12/2025 TECHNIQUE: XR chest 1V portable Portable AP radiograph of the chest. CLINICAL INDICATION:Male, 64 years old with history of Crackles; FINDINGS: Lungs/Pleura: Diffuse interstitial prominence. Right midlung linear scarring atelectasis. No pleural effusion or pneumothorax. Heart/mediastinum: Cardiomediastinal silhouette is enlarged and stable. Musculoskeletal: No acute osseous pathology. Other: PEG tube demonstrated. IMPRESSION: Cardiomegaly with interstitial changes redemonstrated. Correlate for mild CHF with pulmonary vascular congestion. [facility], , 02/12/2025 7:59 PM
[2025-02-13 00:35] LABS: Glucose,Whole Blood 77 mg/dL (70-110)
--- NOTE | 2025-02-13 01:46 | PN ---
PROGRESS NOTE DATE OF SERVICE: 02/12/2025 SUBJECTIVE: This 64-year-old gentleman was admitted with multiple complex medical issues including change in mental status and possible sepsis with UTI. Also had fecal impaction. The patient is confused. The patient has abdominal distention. Multiple consultants are following the patient closely. The patient also had penile erosion. As mentioned, the patient is confused and practically nonverbal at this time. PAST MEDICAL HISTORY: Reviewed. CURRENT MEDICATIONS: Reviewed. PHYSICAL EXAMINATION: VITAL SIGNS: Pulse is 91, blood pressure 139/76, respirations 17. CHEST: Bilateral scattered rhonchi and crackles. ABDOMEN: Soft. Diffuse distention. Bowel sounds diminished. No ascites. No mass palpable. LABORATORY DATA: Potassium 5.9. Troponin noted. Cultures are negative so far. The chest x-ray noted. ASSESSMENT: 1. Sepsis with urinary tract infection, present on admission. 2. Abdominal distention with possible fecal impaction. 3. Rule out bowel obstruction. 4. History of deep vein thrombosis. 5. Hypertension. 6. Seizure disorder. 7. History of multiple sclerosis with paraplegia. 8. History of ESBL and MRSA previously. RECOMMENDATIONS: Recommend to continue current management. Continue the empiric antibiotics. Follow closely with Infectious Disease, Surgery, multiple consultants. Prognosis maybe guarded because of multiple complex medical issues. Further recommendations to follow. I would also recommend abdominal flatplate for continued followup also. MMODL / IJN: [id number] /
[2025-02-13 06:19] LABS: Glucose,Whole Blood 88 mg/dL (70-110)
--- NOTE | 2025-02-13 07:47 | P.PN ---
Subjective Progress Note Date: 02/12/25 SURGICAL PROGRESS NOTE CHIEF COMPLAINT: UTI with sepsis HISTORY OF PRESENT ILLNESS: Surgical service following regards to abdominal distention due to constipation. Patient did have a large bowel movement this morning. Soapsuds enemas were not given yesterday. Agree with resuming patient's lactulose. Abdomen appears less distended today. Patient appears more comfortable in bed. Afebrile. WBC 9.6 PHYSICAL EXAM: VITAL SIGNS: Reviewed. GENERAL: in no acute distress. ABDOMEN: Soft. Distended. Less distended than yesterday. Nontender. NEUROLOGIC: Awake, nonverbal ASSESSMENT: 1. Abdominal distention due to large stool burden in the rectum and sigmoid colon 2. History of multiple sclerosis and is paraplegic PLAN: - Discussed with nursing staff to give a soapsuds enema today - Continue lactulose - Tube feeds currently on hold - Continue to monitor Physician Make Up Editor note has been reviewed by physician. Signing provider agrees with the documented findings, assessment, and plan of care. Objective - Vital Signs Vital signs: Vital Signs Temp 97.9 F 02/12/25 07:38 Pulse 94 02/12/25 08:37 Resp 16 02/12/25 07:38 BP 123/75 02/12/25 07:38 Pulse Ox 97 02/12/25 07:38 FiO2 Intake & Output 02/11/25 02/12/25 02/12/25 18:59 06:59 18:59 Intake Total 1000 760 10 Output Total 800 Balance 200 760 10 Weight 94.1 kg 72 kg Intake: IV 10 Invasive Line 2 10 Intake, IV Titration 1000 760 Amount Lactated Ringers 1,000 ml 260 @ 130 mls/hr IV .Q7H42M [facility] Rx#:[id number] Lactated Ringers 1,000 ml 1000 @ 999 mls/hr IV .Q1H1M ONE Rx#:[id number] Vancomycin 1,500 mg In 500 Sodium Chloride 0.9% 500 ml 500 ml @ 333.333 mls/ hr IVPB Q12H [facility] Rx#: [id number] Output: Urine 800 Other: Voiding Method Indwelling Catheter # Voids 1 # Bowel Movements 1 - Labs CBC & Chem 7: 02/12/25 07:27 02/12/25 07:27 Labs: Abnormal Lab Results - Last 24 Hours (Table) 02/11/25 02/11/25 02/12/25 Range/Units 12:37 15:25 07:27 MCH 26.9 L (27.0-32.0) pg MCHC 30.5 L (32.0-37.0) g/dL Immature Gran # 0.06 H (0.00-0.04) 10*3/uL Eosinophils # 0.02 L (0.04-0.35) 10*3/uL Potassium (3.5-5.1) mmol/L Chloride (98-107) mmol/L Creatinine (0.66-1.25) mg/dL Troponin I 0.047 H* 0.043 H* (0.000-0.034) ng/mL Albumin (3.5-5.0) g/dL 02/12/25 Range/Units 07:27 MCH (27.0-32.0) pg MCHC (32.0-37.0) g/dL Immature Gran # (0.00-0.04) 10*3/uL Eosinophils # (0.04-0.35) 10*3/uL Potassium 5.9 H (3.5-5.1) mmol/L Chloride 111 H (98-107) mmol/L Creatinine 0.60 L (0.66-1.25) mg/dL Troponin I (0.000-0.034) ng/mL Albumin 3.4 L (3.5-5.0) g/dL
[2025-02-13 07:59] LABS: HCT 37.8 % (39.6-50.0); HGB 12.3 g/dL (13.0-17.0); Lymphocytes # (A) 0.93 10*3/uL (0.90-5.00); Lymphocytes % (A) 13.4 %; MCHC 32.5 g/dL (32.0-37.0); MCV 85.9 fL (80.0-97.0); Mean Platelet Volume 11.4 fL (9.5-12.2); Monocytes # (A) 0.41 10*3/uL (0.20-1.00); Monocytes % (A) 5.9 %; Neutrophils # (A) 5.55 10*3/uL (1.80-7.70); Neutrophils % (A) 79.7 %; Platelet Count 300 10*3/uL (140-440); RDW 15.9 % (11.5-14.5); WBC 6.96 10*3/uL (4.50-10.00)
[2025-02-13 08:31] LABS: African American GFR (CKD) >90 (>60 ml/min/1.73 sqM); Anion Gap 10 mmol/L; Blood Urea Nitrogen 16 mg/dL (9-20); Calcium 8.4 mg/dL (8.4-10.2); Carbon Dioxide 19 mmol/L (22-30); Chloride 112 mmol/L (98-107); Glucose 110 mg/dL (74-99); Non-African American GFR(CKD) >90 (>60 ml/min/1.73 sqM); Potassium 4.8 mmol/L (3.5-5.1); Sodium 141 mmol/L (137-145)
[2025-02-13] MEDS: VANCOMYCIN TROUGH DUE 1 EACH MISC MISCELLANE ONE (09:44)
--- NOTE | 2025-02-13 12:07 | P.PN ---
Subjective Progress Note Date: 02/13/25 SURGICAL PROGRESS NOTE CHIEF COMPLAINT: UTI with sepsis HISTORY OF PRESENT ILLNESS: Surgical service following regards to abdominal distention due to constipation. Patient is having bowel movements. Abdominal distention is improving. Acute abdominal series from yesterday reports no evidence for small bowel obstruction or free air. Possible dilated sigmoid colon distending up to 9 cm. Findings could reflect ileus. Mild to moderate stool proximal to this dilatation. Patient did receive soapsuds enemas yesterday and lactulose. Afebrile. WBC 6.96 Patient seen and examined with Dr. Case PHYSICAL EXAM: VITAL SIGNS: Reviewed. GENERAL: in no acute distress. ABDOMEN: Soft. Distended. Less distended than yesterday. Nontender. NEUROLOGIC: Awake, nonverbal ASSESSMENT: 1. Abdominal distention due to large stool burden in the rectum and sigmoid colon 2. History of multiple sclerosis and is paraplegic PLAN: - Repeat soapsuds enemas today - Continue lactulose - Okay to start tube feeds at 10 mL/h - Continue to monitor Physician Natural Sciences Manager note has been reviewed by physician. Signing provider agrees with the documented findings, assessment, and plan of care. Objective - Vital Signs Vital signs: Vital Signs Temp 97.7 F 02/13/25 07:51 Pulse 64 02/13/25 11:31 Resp 16 02/13/25 07:51 BP 134/87 02/13/25 07:51 Pulse Ox 99 02/13/25 07:51 FiO2 Intake & Output 02/12/25 02/13/25 02/13/25 18:59 06:59 18:59 Intake Total 166 120 Output Total 400 Balance -234 120 Weight 72 kg 110 kg Intake: IV 20 20 Invasive Line 2 20 20 Tube Feeding 146 100 Output: Urine 400 Other: Voiding Method Indwelling Catheter Indwelling Catheter Indwelling Catheter # Voids 1 # Bowel Movements 1 - Labs CBC & Chem 7: 02/13/25 07:36 02/13/25 07:36 Labs: Abnormal Lab Results - Last 24 Hours (Table) 02/13/25 02/13/25 Range/Units 07:36 07:36 Hgb 12.3 L (13.0-17.0) g/dL Hct 37.8 L (39.6-50.0) % Immature Gran # 0.07 H (0.00-0.04) 10*3/uL Eosinophils # 0.00 L (0.04-0.35) 10*3/uL Chloride 112 H (98-107) mmol/L Carbon Dioxide 19 L (22-30) mmol/L Creatinine 0.52 L (0.66-1.25) mg/dL Glucose 110 H (74-99) mg/dL Microbiology - Last 24 Hours (Table) 02/11/25 08:32 Urine Culture - Preliminary Urine,Voided Gram Neg Bacilli Group D Enterococcus 02/11/25 08:11 Blood Culture - Preliminary Blood
[2025-02-13 12:09] LABS: Glucose,Whole Blood 123 mg/dL (70-110)
[2025-02-13] MEDS: VANCOMYCIN 1,000 MG in SODIUM CHLORIDE 0.9% 250 ML IVPB SCH (12:17)
--- NOTE | 2025-02-13 14:55 | P.PN ---
Subjective Progress Note Date: 02/13/25 Principal diagnosis: Reason for follow-up is sepsis/UTI Patient is a 64-year-old male with multiple comorbidities including MS bedbound state history of recurrent UTI admitted to hospital with sepsis concerning for UTI probably this consultation. On today's evaluation that is 02/13/2025, Patient is afebrile this morning patient is breathing comfortably currently on room air he is sleeping more awake nonverbal and unable to provide any reliable history no vomiting or diarrhea has been reported. Patient white count normalized to 6.96, creatinine 0.52 urine is growing gram- negative" Enterococcus Objective - Vital Signs Vital signs: Vital Signs Temp 97.8 F 02/13/25 12:05 Pulse 81 02/13/25 13:46 Resp 18 02/13/25 12:05 BP 136/77 02/13/25 12:05 Pulse Ox 95 02/13/25 12:05 FiO2 Intake & Output 02/12/25 02/13/25 02/13/25 18:59 06:59 18:59 Intake Total 166 120 Output Total 400 Balance -234 120 Weight 72 kg 110 kg Intake: IV 20 20 Invasive Line 2 20 20 Tube Feeding 146 100 Output: Urine 400 Other: Voiding Method Indwelling Catheter Indwelling Catheter Indwelling Catheter # Voids 1 # Bowel Movements 1 1 - Exam GENERAL DESCRIPTION: An elderly male lying in bed in no distress RESPIRATORY SYSTEM: Unlabored breathing , coarse breath sounds bilaterally HEART: S1 S2 regular rate and rhythm , ABDOMEN: Soft , no tenderness EXTREMITIES: No edema feet - Labs CBC & Chem 7: 02/13/25 07:36 02/13/25 07:36 Labs: Abnormal Lab Results - Last 24 Hours (Table) 02/13/25 02/13/25 02/13/25 Range/Units 07:36 07:36 12:07 Hgb 12.3 L (13.0-17.0) g/dL Hct 37.8 L (39.6-50.0) % Immature Gran # 0.07 H (0.00-0.04) 10*3/uL Eosinophils # 0.00 L (0.04-0.35) 10*3/uL Chloride 112 H (98-107) mmol/L Carbon Dioxide 19 L (22-30) mmol/L Creatinine 0.52 L (0.66-1.25) mg/dL Glucose 110 H (74-99) mg/dL POC Glucose (mg/dL) 123 H (70-110) mg/dL Microbiology - Last 24 Hours (Table) 02/11/25 08:11 Blood Culture - Preliminary Blood 02/11/25 08:32 Urine Culture - Preliminary Urine,Voided Gram Neg Bacilli Group D Enterococcus Assessment and Plan (1) Sepsis Current Visit: Yes Status: Acute Code(s): A41.9 - SEPSIS, UNSPECIFIED ORGANISM SNOMED Code(s): 73408218 (2) UTI (urinary tract infection) Current Visit: Yes Status: Acute Code(s): N39.0 - URINARY TRACT INFECTION, SITE NOT SPECIFIED SNOMED Code(s): 69089227 (3) Allergy to multiple antibiotics Current Visit: No Status: Acute Code(s): Z88.1 - ALLERGY STATUS TO OTHER ANTIBIOTIC AGENTS SNOMED Code(s): 140090379 Plan: 1patient presented the hospital with sepsis in this patient who did have a heart rate of 94 elevated white count low-grade fever meeting currently for SIRS/sepsis source is likely catheter since UTI in this patient with a history of infection with ESBL pathogen will need to cover for resistant pathogen while waiting for the culture to finalize 2patient with multiple antibiotic ALLERGIES that would limit the number of antibiotic safe to use 3patient urine is growing group D Enterococcus and gram-negative with ID sensitivities pending patient will be treated with Invanz 1 g daily while waiting for the culture to finalize Dictation was produced using [employer] dictation software. please excuse any gr ammatical, word or spelling errors. Time with Patient: Less than 30
--- NOTE | 2025-02-13 16:15 | P.PN ---
Subjective Progress Note Date: 02/13/25 64-year-old male patient, advanced multiple sclerosis, nonverbal and paraplegic, presented to the emergency with increased lethargy, and suspected sepsis. The patient cannot volunteer any medical information. Based on my chart review, the patient has had frequent urine tract infections including a recent urine tract infection with a gram-negative ESBL producing Proteus Mirabella's. He has also had various urine tract infection with Enterococcus. No reported aspiration although pneumonia is still a concern. He has a PEG tube for enteral feeding and nutritional support and he has also a Stein catheter in place. His past medical history includes advanced multiple sclerosis, hypertension, previous history of DVTs, recurrent pneumonias and recurrent urine tract infection and history of seizure disorder. In the emergency, the patient was found to be mildly hypoxic and tachypneic. He was placed on oxygen at 2 L/min nasal cannula. He was also given IV fluids and he received lactated Ringe r x 3 L and he was started on a maintenance lactated Ringer 130 cc an hour. The patient was initially given Levaquin and vancomycin. I added IV Invanz based on his ESBL related gram-negative urinary tract infections. I also reviewed the chest x-ray. No acute abnormalities. No airspace disease or consolidation. CT scan of the chest was also done that was nondiagnostic for pulmonary embolism. Lung volumes were essentially small. There was large stool burden in the rectum and sigmoid colon and there was chronic left hip fracture with bone deformity. PEG tube is in good location. Nonobstructive left renal calculus. The white cell count of 14 hemoglobin 13.8 and a platelet count of 341. Blood gas showed a pH of 7.43 with a pCO2 of 35 and PO219. BUN is 29 with a creatinine of 0.7. Sodium levels at 143. proBNP level is 2010. Troponins at 0.04 respectively x 3. UA is abnormal. Urine tox is negative. Viral screen is negative and alcohol level is less than 10. On 02/12/2025, the patient is being seen for a follow-up. The patient is having some upper airway secretions. There is no clear indication for an underlying pneumonia. The patient has a urinary tract infection the patient is currently on IV Invanz. He remains NPO. The white cell count is at 9.6 with a hemoglobin 13.9 and a platelet count of 328. Sodium is at 143, BUN is 19 with a creatinine of 0.6. K level is at 5.9. The patient is hemodynamically stable. He is on room air oxygen. He is afebrile. He is nonverbal and chronically debilitated as measured due to advanced multiple sclerosis. 02/13/2025, the patient is being seen for a follow-up. The patient is currently on room air oxygen. He is receiving enteral feeding for nutritional support. He is tolerating enteral feeding diet. No significant respiratory distress. Urine culture was positive for gram-negative bacillus and Enterococcus group D and the patient remains on IV Invanz. Vancomycin was also added. The white cell count is 6.9, it was 12.3 and the platelet count of 300, BUN 16 with a creatinine of 0.7 and sodium levels at 141. ID is on the case regarding antibiotic management. No other acute complaints otherwise for now. Patient remains nonverbal. Has multiple sclerosis. Objective - Vital Signs Vital signs: Vital Signs Temp 97.7 F 02/13/25 07:51 Pulse 74 02/13/25 08:38 Resp 16 02/13/25 07:51 BP 134/87 02/13/25 07:51 Pulse Ox 99 02/13/25 07:51 FiO2 Intake & Output 02/12/25 02/13/25 02/13/25 18:59 06:59 18:59 Intake Total 166 120 Output Total 400 Balance -234 120 Weight 72 kg 110 kg Intake: IV 20 20 Invasive Line 2 20 20 Tube Feeding 146 100 Output: Urine 400 Other: Voiding Method Indwelling Catheter Indwelling Catheter Indwelling Catheter # Voids 1 # Bowel Movements 1 - Exam GENERAL EXAM: Lethargic, debilitated 64-year-old male, on room air oxygen. Has a weak and congested cough. Does not follow commands. HEAD: Normocephalic and atraumatic EYES: Normal reaction of pupils, equal size. NOSE: Clear with pink turbinates. THROAT: No erythema or exudates. NECK: No masses, no JVD. CHEST: No chest wall deformity. LUNGS: Equal air entry with coarse rhonchi heard bilaterally. CVS: S1 and S2 normal with no audible murmur, regular rhythm. No extra heart sounds ABDOMEN: No hepatosplenomegaly, active bowel sounds, no guarding or rigidity. PEG tube noted with continuous enteral nutrition. SPINE: No scoliosis or deformity SKIN: No rashes CENTRAL NERVOUS SYSTEM: Difficult to assess, tone is normal in all 4 extremities. EXTREMITIES: Contractures noted. There is no peripheral edema, clubbing, or cya nosis. Peripheral pulses are intact. - Labs CBC & Chem 7: 02/13/25 07:36 02/13/25 07:36 Labs: Abnormal Lab Results - Last 24 Hours (Table) 02/13/25 02/13/25 Range/Units 07:36 07:36 Hgb 12.3 L (13.0-17.0) g/dL Hct 37.8 L (39.6-50.0) % Immature Gran # 0.07 H (0.00-0.04) 10*3/uL Eosinophils # 0.00 L (0.04-0.35) 10*3/uL Chloride 112 H (98-107) mmol/L Carbon Dioxide 19 L (22-30) mmol/L Creatinine 0.52 L (0.66-1.25) mg/dL Glucose 110 H (74-99) mg/dL Microbiology - Last 24 Hours (Table) 02/11/25 08:32 Urine Culture - Preliminary Urine,Voided Gram Neg Bacilli Group D Enterococcus 02/11/25 08:11 Blood Culture - Preliminary Blood Assessment and Plan Plan: Urinary tract infection, likely sepsis with secondary gram-negative infection and Enterococcus group D. The patient is currently on IV Invanz and vancomycin and the choice of antibiotics was done based on the previous history of ESBL producing gram-negative urinary tract infections. ID is on the case Acute hypoxic respiratory failure, secondary to above, currently on room air oxygen. Does have some upper airway secretions, no signs of any respiratory distress Acute leukocytosis secondary to above, improving Elevated troponins, likely type II PA History of multiple sclerosis History of dysphagia, with PEG tube and enteral nutrition History of neurogenic bladder with chronic indwelling urinary catheter and frequent urinary tract infections History of seizure disorder History of dementia Poor overall functional performance based on the above-mentioned multiple comorbidities Plan: Follow-up on the urine cultures Continue with IV Invanz, vancomycin Aspiration precautions Titrate oxygen for saturation above 90%, currently on room air oxygen Dietary were consulted and the patient was started on enteral feeding for nutritional support Lovenox for DVT prophylaxis Overall prognosis remains poor Time with Patient: Greater than 30
[2025-02-13 18:02] LABS: Glucose,Whole Blood 100 mg/dL (70-110)
--- NOTE | 2025-02-14 04:51 | PN ---
PROGRESS NOTE DATE OF SERVICE: 02/13/2025 SUBJECTIVE: This 64-year-old gentleman was admitted with change in mental status and possible sepsis and UTI, is being closely monitored, at this time, the patient also had abdominal distention possibly from fecal impaction. Urine culture showed group D Enterococcus and gram-negative bacilli, final ID is pending at this time. PAST MEDICAL HISTORY: Could not be taken. REVIEW OF SYSTEMS: Could not be taken. CURRENT MEDICATIONS: Reviewed. PHYSICAL EXAMINATION: VITAL SIGNS: Pulse is 88, blood pressure 143/80, respirations 20. HEENT: Conjunctivae normal. CARDIOVASCULAR: S1, S2. RESPIRATIONS: Bilateral scattered rhonchi. ABDOMEN: Soft, distended. Mild diffuse discomfort. NERVOUS SYSTEM: Diffusely weak. LABORATORY DATA: Noted. ASSESSMENT: 1. Sepsis with acute urinary tract infection present on admission with poorly microbial gram-negative bacilli and group D Enterococcus. 2. Abdominal distention with possible fecal impaction. 3. Rule out bowel obstruction. 4. History of deep vein thrombosis. 5. Hypertension. 6. Seizure disorder. 7. History of multiple sclerosis and paraplegia. 8. ESBL and MRSA. RECOMMENDATIONS: Recommend to continue current management. Otherwise at this time, continue with empiric antibiotics. Follow closely with multiple consultants. Plain x-ray showed dilated sigmoid up to 9 cm. Prognosis is extremely guarded. Further recommendations to follow. MMODL / IJN: [id number] /
[2025-02-14 07:16] LABS: Glucose,Whole Blood 125 mg/dL (70-110)
[2025-02-14 09:07] LABS: African American GFR (CKD) >90 (>60 ml/min/1.73 sqM); Non-African American GFR(CKD) >90 (>60 ml/min/1.73 sqM)
--- NOTE | 2025-02-14 11:25 | P.PN ---
Subjective Progress Note Date: 02/14/25 Principal diagnosis: Constipation Patient doing well today. Had loose stools yesterday. No obvious discomfort. No fevers. Tolerating tube feeds at 40 cc/h. Flatplate done 2 days ago still shows colonic distention. Objective - Vital Signs Vital signs: Vital Signs Temp 97.9 F 02/14/25 07:31 Pulse 96 02/14/25 08:43 Resp 19 02/14/25 07:32 BP 160/81 02/14/25 07:31 Pulse Ox 94 L 02/14/25 07:31 FiO2 Intake & Output 02/13/25 02/14/25 02/14/25 18:59 06:59 18:59 Intake Total 10 Output Total 450 Balance -450 10 Weight 55.5 kg Intake: IV 10 Invasive Line 2 10 Output: Urine 450 Other: Voiding Method Indwelling Catheter Indwelling Catheter Indwelling Catheter # Bowel Movements 0 - Exam Abdomen: Soft, mild distention, nontender - Labs CBC & Chem 7: 02/13/25 07:36 02/14/25 07:53 Labs: Abnormal Lab Results - Last 24 Hours (Table) 02/13/25 02/14/25 02/14/25 Range/Units 12:07 07:14 07:53 Creatinine 0.58 L (0.66-1.25) mg/dL POC Glucose (mg/dL) 123 H 125 H (70-110) mg/dL Microbiology - Last 24 Hours (Table) 02/11/25 08:32 Urine Culture - Preliminary Urine,Voided Gram Neg Bacilli Group D Enterococcus 02/11/25 08:11 Blood Culture - Preliminary Blood Assessment and Plan (1) Abdominal distention Narrative/Plan: 64-year-old male with chronic constipation issues and chronic abdominal distention. Patient with improved bowel function now after soapsuds enemas and cathartics. Continue tube feeds at goal. Repeat abdominal x-rays tomorrow. Begin daily Dulcolax suppository to assist with passage of flatus. Current Visit: No Status: Acute Code(s): R14.0 - ABDOMINAL DISTENSION (GASEOUS) SNOMED Code(s): 27974903
[2025-02-14 11:38] LABS: Glucose,Whole Blood 124 mg/dL (70-110)
[2025-02-14] MEDS: bisacodyL 10 MG SUPP RECTAL SCH (13:12)
--- NOTE | 2025-02-14 16:34 | P.PN ---
Subjective Progress Note Date: 02/14/25 Principal diagnosis: Reason for follow-up is sepsis/UTI Patient is a 64-year-old male with multiple comorbidities including MS bedbound state history of recurrent UTI admitted to hospital with sepsis concerning for UTI probably this consultation. On today's evaluation that is 02/14/2025,the patient is afebrile patient is currently breathing comfortably on room air and does not seem to be any distress no vomiting diarrhea which is reported by the nursing staff. Patient did have a creatinine 0.58 urine is growing gram-negative bacilli and group D Enterococcus Objective - Vital Signs Vital signs: Vital Signs Temp 97.8 F 02/14/25 15:17 Pulse 88 02/14/25 16:05 Resp 19 02/14/25 15:17 BP 144/89 02/14/25 15:17 Pulse Ox 99 02/14/25 15:17 FiO2 Intake & Output 02/13/25 02/14/25 02/14/25 18:59 06:59 18:59 Intake Total 20 Output Total 450 675 Balance -450 -655 Weight 55.5 kg Intake: IV 20 Invasive Line 2 20 Output: Urine 450 675 Other: Voiding Method Indwelling Catheter Indwelling Catheter Indwelling Catheter # Bowel Movements 0 - Exam GENERAL DESCRIPTION: An elderly male lying in bed in no distress RESPIRATORY SYSTEM: Unlabored breathing , coarse breath sounds bilaterally HEART: S1 S2 regular rate and rhythm , ABDOMEN: Soft , no tenderness EXTREMITIES: No edema feet - Labs CBC & Chem 7: 02/13/25 07:36 02/14/25 07:53 Labs: Abnormal Lab Results - Last 24 Hours (Table) 02/14/25 02/14/25 02/14/25 Range/Units 07:14 07:53 11:35 Creatinine 0.58 L (0.66-1.25) mg/dL POC Glucose (mg/dL) 125 H 124 H (70-110) mg/dL Microbiology - Last 24 Hours (Table) 02/11/25 08:11 Blood Culture - Preliminary Blood 02/11/25 08:32 Urine Culture - Preliminary Urine,Voided Gram Neg Bacilli Group D Enterococcus Assessment and Plan (1) Sepsis Current Visit: Yes Status: Acute Code(s): A41.9 - SEPSIS, UNSPECIFIED ORGANISM SNOMED Code(s): 57310544 (2) UTI (urinary tract infection) Current Visit: Yes Status: Acute Code(s): N39.0 - URINARY TRACT INFECTION, SITE NOT SPECIFIED SNOMED Code(s): 00812745 (3) Allergy to multiple antibiotics Current Visit: No Status: Acute Code(s): Z88.1 - ALLERGY STATUS TO OTHER ANTIBIOTIC AGENTS SNOMED Code(s): 297790172 Plan: 1patient presented the hospital with sepsis in this patient who did have a heart rate of 94 elevated white count low-grade fever meeting currently for SIRS/sepsis source is likely catheter since UTI in this patient with a history of infection with ESBL pathogen will need to cover for resistant pathogen while waiting for the culture to finalize 2patient with multiple antibiotic ALLERGIES that would limit the number of antibiotic safe to use 3patient urine is growing group D Enterococcus and gram-negative which is sensitive to Unasyn antibiotic will be switched over to Unasyn and monitor clinical course closely Dictation was produced using [employer] dictation software. please excuse any grammatical, word or spelling errors. Time with Patient: Less than 30
[2025-02-14 16:39] LABS: Glucose,Whole Blood 98 mg/dL (70-110)
[2025-02-14] MEDS: AMPICILLIN-SULBACTAM 3 GM in SODIUM CHLORIDE 0.9% 100 ML IVPB SCH (16:45)
--- NOTE | 2025-02-14 18:32 | P.PN ---
Subjective Progress Note Date: 02/14/25 64-year-old male patient, advanced multiple sclerosis, nonverbal and paraplegic, presented to the emergency with increased lethargy, and suspected sepsis. The patient cannot volunteer any medical information. Based on my chart review, the patient has had frequent urine tract infections including a recent urine tract infection with a gram-negative ESBL producing Proteus Mirabella's. He has also had various urine tract infection with Enterococcus. No reported aspiration although pneumonia is still a concern. He has a PEG tube for enteral feeding and nutritional support and he has also a Stein catheter in place. His past medical history includes advanced multiple sclerosis, hypertension, previous history of DVTs, recurrent pneumonias and recurrent urine tract infection and history of seizure disorder. In the emergency, the patient was found to be mildly hypoxic and tachypneic. He was placed on oxygen at 2 L/min nasal cannula. He was also given IV fluids and he received lactated Ringe r x 3 L and he was started on a maintenance lactated Ringer 130 cc an hour. The patient was initially given Levaquin and vancomycin. I added IV Invanz based on his ESBL related gram-negative urinary tract infections. I also reviewed the chest x-ray. No acute abnormalities. No airspace disease or consolidation. CT scan of the chest was also done that was nondiagnostic for pulmonary embolism. Lung volumes were essentially small. There was large stool burden in the rectum and sigmoid colon and there was chronic left hip fracture with bone deformity. PEG tube is in good location. Nonobstructive left renal calculus. The white cell count of 14 hemoglobin 13.8 and a platelet count of 341. Blood gas showed a pH of 7.43 with a pCO2 of 35 and PO219. BUN is 29 with a creatinine of 0.7. Sodium levels at 143. proBNP level is 2010. Troponins at 0.04 respectively x 3. UA is abnormal. Urine tox is negative. Viral screen is negative and alcohol level is less than 10. On 02/12/2025, the patient is being seen for a follow-up. The patient is having some upper airway secretions. There is no clear indication for an underlying pneumonia. The patient has a urinary tract infection the patient is currently on IV Invanz. He remains NPO. The white cell count is at 9.6 with a hemoglobin 13.9 and a platelet count of 328. Sodium is at 143, BUN is 19 with a creatinine of 0.6. K level is at 5.9. The patient is hemodynamically stable. He is on room air oxygen. He is afebrile. He is nonverbal and chronically debilitated as measured due to advanced multiple sclerosis. 02/13/2025, the patient is being seen for a follow-up. The patient is currently on room air oxygen. He is receiving enteral feeding for nutritional support. He is tolerating enteral feeding diet. No significant respiratory distress. Urine culture was positive for gram-negative bacillus and Enterococcus group D and the patient remains on IV Invanz. Vancomycin was also added. The white cell count is 6.9, it was 12.3 and the platelet count of 300, BUN 16 with a creatinine of 0.7 and sodium levels at 141. ID is on the case regarding antibiotic management. No other acute complaints otherwise for now. Patient remains nonverbal. Has multiple sclerosis. On 02/14/2025, patient is being seen for a follow-up. No new issues and the patient remains stable on room air oxygen with a pulse ox of 99%. Continues to receive IV antibiotics as the patient was found to have gram-negative bacillus and Enterococcus group D in the urine. He is currently on IV Unasyn and vancomycin was also added by infectious disease. No new labs are available from today. Patient's creatinine is at 0.8. Vancomycin trough from 02/13/2025 was 24.6. Hemodynamically stable. Receiving enteral feeding for nutrition support. Temperature is 97.8. Room air pulse ox is 99%. No aspiration. No respiratory distress and the patient is resting comfortably in bed. Objective - Vital Signs Vital signs: Vital Signs Temp 97.9 F 02/14/25 07:31 Pulse 96 02/14/25 08:43 Resp 19 02/14/25 07:32 BP 160/81 02/14/25 07:31 Pulse Ox 94 L 02/14/25 07:31 FiO2 Intake & Output 02/13/25 02/14/25 02/14/25 18:59 06:59 18:59 Intake Total 10 Output Total 450 Balance -450 10 Weight 55.5 kg Intake: IV 10 Invasive Line 2 10 Output: Urine 450 Other: Voiding Method Indwelling Catheter Indwelling Catheter Indwelling Catheter # Bowel Movements 0 - Exam GENERAL EXAM: Lethargic, debilitated 64-year-old male, on room air oxygen. Has a weak and congested cough. Does not follow commands. HEAD: Normocephalic and atraumatic EYES: Normal reaction of pupils, equal size. NOSE: Clear with pink turbinates. THROAT: No erythema or exudates. NECK: No masses, no JVD. CHEST: No chest wall deformity. LUNGS: Equal air entry with coarse rhonchi heard bilaterally. CVS: S1 and S2 normal with no audible murmur, regular rhythm. No extra heart sounds ABDOMEN: No hepatosplenomegaly, active bowel sounds, no guarding or rigidity. PEG tube noted with continuous enteral nutrition. SPINE: No scoliosis or deformity SKIN: No rashes CENTRAL NERVOUS SYSTEM: Difficult to assess, tone is normal in all 4 extremities. EXTREMITIES: Contractures noted. There is no peripheral edema, clubbing, or cyanosis. Peripheral pulses are intact. - Labs CBC & Chem 7: 02/13/25 07:36 02/14/25 07:53 Labs: Abnormal Lab Results - Last 24 Hours (Table) 02/13/25 02/14/25 02/14/25 Range/Units 12:07 07:14 07:53 Creatinine 0.58 L (0.66-1.25) mg/dL POC Glucose (mg/dL) 123 H 125 H (70-110) mg/dL Microbiology - Last 24 Hours (Table) 02/11/25 08:32 Urine Culture - Preliminary Urine,Voided Gram Neg Bacilli Group D Enterococcus 02/11/25 08:11 Blood Culture - Preliminary Blood Assessment and Plan Plan: Urinary tract infection, likely sepsis with secondary gram-negative infection and Enterococcus group D. The patient is currently on IV Invanz and vancomycin and the choice of antibiotics was done based on the previous history of ESBL producing gram-negative urinary tract infections. ID is on the case. Hemodynamically stable. Afebrile. Acute hypoxic respiratory failure, secondary to above, currently on room air oxygen. Does have some upper airway secretions, no signs of any respiratory distress, overall respiratory status remains stable. No reported aspiration. Acute leukocytosis secondary to above, improving Elevated troponins, likely type II [place] History of multiple sclerosis History of dysphagia, with PEG tube and enteral nutrition History of neurogenic bladder with chronic indwelling urinary catheter and frequent urinary tract infections History of seizure disorder History of dementia Poor overall functional performance based on the above-mentioned multiple comor bidities Plan: Follow-up on the urine cultures Continue with IV Unasyn/vancomycin Aspiration precautions Titrate oxygen for saturation above 90%, currently on room air oxygen Dietary were consulted and the patient was started on enteral feeding for nutritional support Lovenox for DVT prophylaxis Overall prognosis remains poor
[2025-02-14 23:51] LABS: Glucose,Whole Blood 130 mg/dL (70-110)
--- NOTE | 2025-02-15 01:49 | PN ---
PROGRESS NOTE DATE OF SERVICE: 02/14/2025 SUBJECTIVE: This is a 64-year-old gentleman admitted with sepsis and UTI. Continues to be confused. No chest pain. No palpitation. Cultures are showing group D Enterococcus which is vancomycin sensitive and gram-negative bacilli. OBJECTIVE: VITAL SIGNS: Pulse is 82, blood pressure n, respirations n. CHEST: Few scattered rhonchi. ABDOMEN: Soft, distended. CARDIOVASCULAR: S1, S2. LABS: Reviewed. ASSESSMENT: 1. Sepsis with acute urinary tract infection, present on admission, with polymicrobial gram-negative bacilli as well as group D Enterococcus, vancomycin sensitive. 2. Abdomen distention with possible fecal impaction. 3. Rule out bowel obstruction. 4. History of deep vein thrombosis. 5. Hypertension. 6. History of seizure disorder. 7. History of multiple sclerosis and paraplegia. 8. ESBL and MRSA history. RECOMMENDATIONS AND DISCUSSION: I recommend to continue current medications, symptomatic treatment. Otherwise, repeat labs. Closely follow with Surgery, Infectious Disease. Prognosis extremely guarded because of multiple complex medical issues. The patient continues to be nonresponsive and same conscious level at this time. MMODL / IJN: [id number] / MTDD
[2025-02-15 05:59] LABS: Glucose,Whole Blood 105 mg/dL (70-110)
--- NOTE | 2025-02-15 06:52 | XR ---
Abdomen, 2 view HISTORY: Distended abdomen COMPARISON: 09/21/2023. TECHNIQUE: Supine portable views of the abdomen were obtained. FINDINGS: There is a diffuse interstitial infiltrate in the lower lobes. There is moderate stool within the colon but the bowel gas pattern is nonspecific. There is no suspicious calcification. There is marked deformity of the left hip secondary to a remote nonhealed fracture. IMPRESSION: 1. Nonspecific abdomen without evidence of obstruction. 2. Diffuse interstitial infiltrates in the visualized lung prater. 3. No stool impaction. [facility], , 02/15/2025 6:50 AM
[2025-02-15 08:10] LABS: Basophils # (A) 0.04 10*3/uL (0.00-0.10); Basophils % (A) 0.5 %; Eosinophils # (A) 0.07 10*3/uL (0.04-0.35); Eosinophils % (A) 0.8 %; HCT 45.7 % (39.6-50.0); HGB 14.4 g/dL (13.0-17.0); Lymphocytes # (A) 1.23 10*3/uL (0.90-5.00); Lymphocytes % (A) 14.9 %; MCH 27.1 pg (27.0-32.0); MCHC 31.5 g/dL (32.0-37.0); MCV 86.1 fL (80.0-97.0); Mean Platelet Volume 10.9 fL (9.5-12.2); Monocytes % (A) 10.9 %; Neutrophils # (A) 5.86 10*3/uL (1.80-7.70); Neutrophils % (A) 70.7 %; Platelet Count 353 10*3/uL (140-440); RBC 5.31 10*6/uL (4.40-5.60); WBC 8.28 10*3/uL (4.50-10.00)
[2025-02-15 08:27] LABS: African American GFR (CKD) >90 (>60 ml/min/1.73 sqM); Anion Gap 6 mmol/L; Blood Urea Nitrogen 15 mg/dL (9-20); Calcium 8.4 mg/dL (8.4-10.2); Carbon Dioxide 23 mmol/L (22-30); Chloride 111 mmol/L (98-107); Glucose 120 mg/dL (74-99); Non-African American GFR(CKD) >90 (>60 ml/min/1.73 sqM); Potassium 3.9 mmol/L (3.5-5.1); Sodium 140 mmol/L (137-145)
--- NOTE | 2025-02-15 09:51 | P.PN ---
Subjective Progress Note Date: 02/15/25 Principal diagnosis: Constipation Patient awake and alert. Does not appear to be in any discomfort. Passing flatus but no bowel movement since yesterday. Tolerating tube feeds at goal. Residuals are minimal. Today's flatplate shows no obstruction. Objective - Vital Signs Vital signs: Vital Signs Temp 98.1 F 02/15/25 07:57 Pulse 75 02/15/25 07:58 Resp 18 02/15/25 07:58 BP 146/78 02/15/25 07:57 Pulse Ox 98 02/15/25 07:57 FiO2 Intake & Output 02/14/25 02/15/25 02/15/25 18:59 06:59 18:59 Intake Total 712 20 10 Output Total 675 800 Balance 37 -780 10 Weight 45 kg Intake: IV 20 20 10 Invasive Line 2 20 20 10 Tube Feeding 692 Output: Urine 675 800 Other: Voiding Method Indwelling Catheter Indwelling Catheter Indwelling Catheter - Exam Abdomen: Soft, mild distention, nontender - Labs CBC & Chem 7: 02/15/25 07:50 02/15/25 07:50 Labs: Abnormal Lab Results - Last 24 Hours (Table) 02/14/25 02/14/25 02/15/25 Range/Units 11:35 23:50 07:50 MCHC 31.5 L (32.0-37.0) g/dL Immature Gran # 0.18 H (0.00-0.04) 10*3/uL Chloride (98-107) mmol/L Creatinine (0.66-1.25) mg/dL Glucose (74-99) mg/dL POC Glucose (mg/dL) 124 H 130 H (70-110) mg/dL 02/15/25 Range/Units 07:50 MCHC (32.0-37.0) g/dL Immature Gran # (0.00-0.04) 10*3/uL Chloride 111 H (98-107) mmol/L Creatinine 0.56 L (0.66-1.25) mg/dL Glucose 120 H (74-99) mg/dL POC Glucose (mg/dL) (70-110) mg/dL Microbiology - Last 24 Hours (Table) 02/11/25 08:32 Urine Culture - Final Urine,Voided Proteus mirabilis Enterococcus faecalis 02/11/25 08:11 Blood Culture - Preliminary Blood Assessment and Plan (1) Abdominal distention Narrative/Plan: Patient doing better at this time. Continue stool softeners and Dulcolax daily. Continue tube feeds at goal. Current Visit: No Status: Acute Code(s): R14.0 - ABDOMINAL DISTENSION (GASEOUS) SNOMED Code(s): 61054548
[2025-02-15 11:27] LABS: Glucose,Whole Blood 119 mg/dL (70-110)
--- NOTE | 2025-02-15 13:54 | P.PN ---
Subjective Progress Note Date: 02/15/25 64-year-old male patient, advanced multiple sclerosis, nonverbal and paraplegic, presented to the emergency with increased lethargy, and suspected sepsis. The patient cannot volunteer any medical information. Based on my chart review, the patient has had frequent urine tract infections including a recent urine tract infection with a gram-negative ESBL producing Proteus Mirabella's. He has also had various urine tract infection with Enterococcus. No reported aspiration although pneumonia is still a concern. He has a PEG tube for enteral feeding and nutritional support and he has also a Stein catheter in place. His past medical history includes advanced multiple sclerosis, hypertension, previous history of DVTs, recurrent pneumonias and recurrent urine tract infection and history of seizure disorder. In the emergency, the patient was found to be mildly hypoxic and tachypneic. He was placed on oxygen at 2 L/min nasal cannula. He was also given IV fluids and he received lactated Ringe r x 3 L and he was started on a maintenance lactated Ringer 130 cc an hour. The patient was initially given Levaquin and vancomycin. I added IV Invanz based on his ESBL related gram-negative urinary tract infections. I also reviewed the chest x-ray. No acute abnormalities. No airspace disease or consolidation. CT scan of the chest was also done that was nondiagnostic for pulmonary embolism. Lung volumes were essentially small. There was large stool burden in the rectum and sigmoid colon and there was chronic left hip fracture with bone deformity. PEG tube is in good location. Nonobstructive left renal calculus. The white cell count of 14 hemoglobin 13.8 and a platelet count of 341. Blood gas showed a pH of 7.43 with a pCO2 of 35 and PO219. BUN is 29 with a creatinine of 0.7. Sodium levels at 143. proBNP level is 2010. Troponins at 0.04 respectively x 3. UA is abnormal. Urine tox is negative. Viral screen is negative and alcohol level is less than 10. On 02/12/2025, the patient is being seen for a follow-up. The patient is having some upper airway secretions. There is no clear indication for an underlying pneumonia. The patient has a urinary tract infection the patient is currently on IV Invanz. He remains NPO. The white cell count is at 9.6 with a hemoglobin 13.9 and a platelet count of 328. Sodium is at 143, BUN is 19 with a creatinine of 0.6. K level is at 5.9. The patient is hemodynamically stable. He is on room air oxygen. He is afebrile. He is nonverbal and chronically debilitated as measured due to advanced multiple sclerosis. 02/13/2025, the patient is being seen for a follow-up. The patient is currently on room air oxygen. He is receiving enteral feeding for nutritional support. He is tolerating enteral feeding diet. No significant respiratory distress. Urine culture was positive for gram-negative bacillus and Enterococcus group D and the patient remains on IV Invanz. Vancomycin was also added. The white cell count is 6.9, it was 12.3 and the platelet count of 300, BUN 16 with a creatinine of 0.7 and sodium levels at 141. ID is on the case regarding antibiotic management. No other acute complaints otherwise for now. Patient remains nonverbal. Has multiple sclerosis. On 02/14/2025, patient is being seen for a follow-up. No new issues and the patient remains stable on room air oxygen with a pulse ox of 99%. Continues to receive IV antibiotics as the patient was found to have gram-negative bacillus and Enterococcus group D in the urine. He is currently on IV Unasyn and vancomycin was also added by infectious disease. No new labs are available from today. Patient's creatinine is at 0.8. Vancomycin trough from 02/13/2025 was 24.6. Hemodynamically stable. Receiving enteral feeding for nutrition support. Temperature is 97.8. Room air pulse ox is 99%. No aspiration. No respiratory distress and the patient is resting comfortably in bed. 02/15/2025, no respiratory issues and the patient is resting comfortably in bed. Continues to receive antibiotics with IV Unasyn and vancomycin for an underlying urinary tract infection attributed to Proteus mirabilis and Enterococcus faecalis. No respiratory difficulties. Afebrile. Hemodynamically stable. Remains on room air oxygen. Continues to receive enteral feeding for nutritional support. The white cell count is at 8 with a hemoglobin 14.4 and platelet count of 353. Electrolytes are all within normal limits. Objective - Vital Signs Vital signs: Vital Signs Temp 98.1 F 02/15/25 07:57 Pulse 75 02/15/25 07:58 Resp 18 02/15/25 07:58 BP 146/78 02/15/25 07:57 Pulse Ox 98 02/15/25 07:57 FiO2 Intake & Output 02/14/25 02/15/25 02/15/25 18:59 06:59 18:59 Intake Total 712 20 10 Output Total 675 800 Balance 37 -780 10 Weight 45 kg Intake: IV 20 20 10 Invasive Line 2 20 20 10 Tube Feeding 692 Output: Urine 675 800 Other: Voiding Method Indwelling Catheter Indwelling Catheter Indwelling Catheter - Exam GENERAL EXAM: Lethargic, debilitated 64-year-old male, on room air oxygen. Has a weak and congested cough. Does not follow commands. HEAD: Normocephalic and atraumatic EYES: Normal reaction of pupils, equal size. NOSE: Clear with pink turbinates. THROAT: No erythema or exudates. NECK: No masses, no JVD. CHEST: No chest wall deformity. LUNGS: Equal air entry with coarse rhonchi heard bilaterally. CVS: S1 and S2 normal with no audible murmur, regular rhythm. No extra heart sounds ABDOMEN: No hepatosplenomegaly, active bowel sounds, no guarding or rigidity. PEG tube noted with continuous enteral nutrition. SPINE: No scoliosis or deformity SKIN: No rashes CENTRAL NERVOUS SYSTEM: Difficult to assess, tone is normal in all 4 extremities. EXTREMITIES: Contractures noted. There is no peripheral edema, clubbing, or cyanosis. Peripheral pulses are intact. - Labs CBC & Chem 7: 02/15/25 07:50 02/15/25 07:50 Labs: Abnormal Lab Results - Last 24 Hours (Table) 02/14/25 02/14/25 02/15/25 Range/Units 11:35 23:50 07:50 MCHC 31.5 L (32.0-37.0) g/dL Immature Gran # 0.18 H (0.00-0.04) 10*3/uL Chloride (98-107) mmol/L Creatinine (0.66-1.25) mg/dL Glucose (74-99) mg/dL POC Glucose (mg/dL) 124 H 130 H (70-110) mg/dL 02/15/25 Range/Units 07:50 MCHC (32.0-37.0) g/dL Immature Gran # (0.00-0.04) 10*3/uL Chloride 111 H (98-107) mmol/L Creatinine 0.56 L (0.66-1.25) mg/dL Glucose 120 H (74-99) mg/dL POC Glucose (mg/dL) (70-110) mg/dL Microbiology - Last 24 Hours (Table) 02/11/25 08:32 Urine Culture - Final Urine,Voided Proteus mirabilis Enterococcus faecalis 02/11/25 08:11 Blood Culture - Preliminary Blood Assessment and Plan Plan: Urinary tract infection, likely sepsis with secondary gram-negative infection and Enterococcus group D. The patient is currently on IV Invanz and vancomycin and the choice of antibiotics was done based on the previous history of ESBL producing gram-negative urinary tract infections. ID is on the case. Hemodynamically stable. Afebrile. Acute hypoxic respiratory failure, secondary to above, currently on room air oxygen. Does have some upper airway secretions, no signs of any respiratory distress, overall respiratory status remains stable. No reported aspiration. Acute leukocytosis secondary to above, improving Elevated troponins, likely type II [place] History of multiple sclerosis History of dysphagia, with PEG tube and enteral nutrition History of neurogenic bladder with chronic indwelling urinary catheter and frequent urinary tract infections History of seizure disorder History of dementia Poor overall functional performance based on the above-mentioned multiple comorbidities Plan: No signs of any respiratory insufficiency or pneumonia. The patient remains on room air oxygen. Follow-up on the urine cultures Continue with IV Unasyn/vancomycin, further antibiotic adjustments as per ID Aspiration precautions Titrate oxygen for saturation above 90%, currently on room air oxygen Dietary were consulted and the patient was started on enteral feeding for nutritional support Lovenox for DVT prophylaxis Overall prognosis remains poor No active pulmonary critical care issues for now.
--- NOTE | 2025-02-15 15:05 | P.PN ---
Subjective Progress Note Date: 02/15/25 Principal diagnosis: Reason for follow-up is sepsis/UTI Patient is a 64-year-old male with multiple comorbidities including MS bedbound state history of recurrent UTI admitted to hospital with sepsis concerning for UTI probably this consultation. On today's evaluation that is 02/15/2025,the patient remains to be afebrile, patient is on room air not requiring supplemental oxygen and breathing comfortably no distress patient remains to be nonverbal unable provide any history no vomiting or diarrhea has been reported. Patient did have a white count of 8.28 creatinine 0.56 urine with Proteus and Enterococcus blood culture negative Objective - Vital Signs Vital signs: Vital Signs Temp 98.9 F 02/15/25 11:03 Pulse 80 02/15/25 12:16 Resp 18 02/15/25 11:03 BP 162/80 02/15/25 11:03 Pulse Ox 97 02/15/25 11:03 FiO2 Intake & Output 02/14/25 02/15/25 02/15/25 18:59 06:59 18:59 Intake Total 336 01 8107 Output Total 675 800 500 Balance 37 -780 1173 Weight 45 kg Intake: IV 20 20 20 Invasive Line 2 20 20 20 Tube Feeding 692 1653 Output: Urine 675 800 500 Other: Voiding Method Indwelling Catheter Indwelling Catheter Indwelling Catheter # Voids 1 # Bowel Movements 2 - Exam GENERAL DESCRIPTION: An elderly male lying in bed in no distress RESPIRATORY SYSTEM: Unlabored breathing , coarse breath sounds bilaterally HEART: S1 S2 regular rate and rhythm , ABDOMEN: Soft , no tenderness EXTREMITIES: No edema feet - Labs CBC & Chem 7: 02/15/25 07:50 02/15/25 07:50 Labs: Abnormal Lab Results - Last 24 Hours (Table) 02/14/25 02/15/25 02/15/25 Range/Units 23:50 07:50 07:50 MCHC 31.5 L (32.0-37.0) g/dL Immature Gran # 0.18 H (0.00-0.04) 10*3/uL Chloride 111 H (98-107) mmol/L Creatinine 0.56 L (0.66-1.25) mg/dL Glucose 120 H (74-99) mg/dL POC Glucose (mg/dL) 130 H (70-110) mg/dL 02/15/25 Range/Units 11:20 MCHC (32.0-37.0) g/dL Immature Gran # (0.00-0.04) 10*3/uL Chloride (98-107) mmol/L Creatinine (0.66-1.25) mg/dL Glucose (74-99) mg/dL POC Glucose (mg/dL) 119 H (70-110) mg/dL Microbiology - Last 24 Hours (Table) 02/11/25 08:32 Urine Culture - Final Urine,Voided Proteus mirabilis Enterococcus faecalis 02/11/25 08:11 Blood Culture - Preliminary Blood Assessment and Plan (1) Sepsis Current Visit: Yes Status: Acute Code(s): A41.9 - SEPSIS, UNSPECIFIED ORGANISM SNOMED Code(s): 14393402 (2) UTI (urinary tract infection) Current Visit: Yes Status: Acute Code(s): N39.0 - URINARY TRACT INFECTION, SITE NOT SPECIFIED SNOMED Code(s): 70756083 (3) Allergy to multiple antibiotics Current Visit: No Status: Acute Code(s): Z88.1 - ALLERGY STATUS TO OTHER ANTIBIOTIC AGENTS SNOMED Code(s): 565260003 Plan: 1patient presented the hospital with sepsis in this patient who did have a heart rate of 94 elevated white count low-grade fever meeting currently for SIRS/sepsis source is likely catheter since UTI in this patient with a history of infection with ESBL pathogen will need to cover for resistant pathogen while waiting for the culture to finalize 2patient with multiple antibiotic ALLERGIES that would limit the number of antibiotic safe to use 3patient urine is growing group D Enterococcus and Proteus both sensitive to Unasyn with the patient is covered with no need for vancomycin which has been discontinued and plan will be to finish therapy with oral Augmentin Dictation was produced using [employer] dictation software. please excuse any grammatical, word or spelling errors. Time with Patient: Less than 30
[2025-02-15] MEDS: VANCOMYCIN TROUGH DUE 1 EACH MISC MISCELLANE ONE (15:14)
[2025-02-15 16:40] LABS: Glucose,Whole Blood 113 mg/dL (70-110)
[2025-02-16] MEDS: IPRATROPIUM-ALBUTEROL 3 ML NEB INHALATION PRN (01:02)
[2025-02-16 04:06] LABS: Glucose,Whole Blood 154 mg/dL (70-110)
[2025-02-16 05:58] LABS: Glucose,Whole Blood 137 mg/dL (70-110)
--- NOTE | 2025-02-16 06:42 | PN ---
PROGRESS NOTE DATE OF SERVICE: 02/15/2025 SUBJECTIVE: This is a 64-year-old gentleman who was admitted with UTI. Continues to be nonverbal at this time. The patient is conscious. Plain x-ray of abdomen, which I reviewed closely showed nonspecific changes. OBJECTIVE: VITAL SIGNS: Pulse is 78, blood pressure 120/86, respirations 18. CHEST: Few scattered rhonchi and crackles. ABDOMEN: Soft, distended. NERVOUS SYSTEM: Unchanged. LABORATORY DATA: Noted. ASSESSMENT: 1. Sepsis with acute urinary tract infection present on admission with polymicrobial gram-negative bacilli as well as group D Enterococcus which is vancomycin sensitive, Proteus mirabilis. 2. Abdominal distention with possible fecal impaction. 3. History of deep vein thrombosis. 4. Hypertension. 5. History of seizure disorder. 6. History of multiple sclerosis and paraplegia. 7. ESBL, MRSA before previously. RECOMMENDATIONS: Recommend to continue current management and symptom management with antibiotics. Repeat labs. Guarded prognosis because of multiple complex medical conditions. MMODL / IJN: [id number] /
[2025-02-16 09:01] LABS: African American GFR (CKD) >90 (>60 ml/min/1.73 sqM); Anion Gap 9 mmol/L; Blood Urea Nitrogen 16 mg/dL (9-20); Calcium 8.2 mg/dL (8.4-10.2); Carbon Dioxide 25 mmol/L (22-30); Chloride 109 mmol/L (98-107); Glucose 130 mg/dL (74-99); Non-African American GFR(CKD) >90 (>60 ml/min/1.73 sqM); Sodium 143 mmol/L (137-145)
[2025-02-16 09:03] LABS: Potassium 4.1 mmol/L (3.5-5.1)
[2025-02-16 11:08] VITALS: RESP 20; TEMP 97.8
[2025-02-16 11:15] LABS: Glucose,Whole Blood 100 mg/dL (70-110)
[2025-02-16 12:33] LABS: Basophils # (A) 0.04 10*3/uL (0.00-0.10); Basophils % (A) 0.3 %; Eosinophils # (A) 0.03 10*3/uL (0.04-0.35); Eosinophils % (A) 0.2 %; HCT 50.7 % (39.6-50.0); HGB 16.1 g/dL (13.0-17.0); Lymphocytes # (A) 1.06 10*3/uL (0.90-5.00); Lymphocytes % (A) 8.2 %; MCH 27.5 pg (27.0-32.0); MCHC 31.8 g/dL (32.0-37.0); MCV 86.7 fL (80.0-97.0); Mean Platelet Volume 11.2 fL (9.5-12.2); Monocytes # (A) 1.45 10*3/uL (0.20-1.00); Monocytes % (A) 11.3 %; Neutrophils # (A) 9.96 10*3/uL (1.80-7.70); Neutrophils % (A) 77.5 %; Platelet Count 379 10*3/uL (140-440); RBC 5.85 10*6/uL (4.40-5.60); RDW 16.9 % (11.5-14.5); WBC 12.86 10*3/uL (4.50-10.00)
--- NOTE | 2025-02-16 12:55 | CDI ---
Documentation Clarification Form Date: 02/16/2025 12:42:57 PM From: Ayanna Pedraza RN, CCDS Phone: [phone] Admit Date: 02/11/2025 11:09:00 AM Patient Name: Chris Marvin Visit Number: [id number] Discharge Date: ATTENTION: The Clinical Documentation Specialists (CDI) and [facility] Coding Staff appreciate your assistance in clarifying documentation. Please respond to the clarification below the line at the bottom and electronically sign. The CDI & [facility] Coding staff will review the response and follow-up if needed. Please note: Queries are made part of the Legal Health Record. If you have any questions, please contact the author of this message via ITS. Doctor. Dara Crowe UTI is documented in the H/P and subsequent progress notes and patient has a chronic Stein catheter due to neutrogenic bladder per medical history Additional clarification regarding the etiology of the UTI is requested. History/Risk Factors: neurogenic bladder with chronic indwelling urinary catheter, UTI's, Multiple, sclerosis Clinical Indicators: 02/11 Urology consult "64-year-old male nonverbal has both a PEG feeding tube and a chronic indwelling Stein catheter for (chronic urinary retention)." 02/11 Urinalysis: Ur Leukocyte Esterase Large Urine WBC 116 02/11 Urine culture: Proteus mirabilis Enterococcus faecalis 02/11 Lab results: WBC 14.01 Neutrophils 11.62, CL 113, Co2 21 BUN 29 02/11 ID presented with sepsis , heart rate 94, elevated white count low-grade fever meeting current for SIRS/sepsis source is likely catheter since UTI in this patient with a history of infection with ESBL pathogen . Treatment: Stein catheter changed 02/11 Unasyn 3 GM IVPB 02/14- 02/16 (current treatment) Vancomycin HCl 1,500 IVPB Q 12 HRS 02/11-02/12 > 1,000 IVPB 16-18 (PTD) Please clarify the etiology of the UTI, if known? [ ] Stein catheter [ ] UTI not related to Stein catheter [ ] Other condition, please specify [ ] Unable to determine (Template Last Revised: November 2020) Stein catheter MTDD
[2025-02-16 13:17] VITALS: BP 138/83
--- NOTE | 2025-02-16 13:25 | P.PN ---
Subjective Progress Note Date: 02/16/25 SURGICAL PROGRESS NOTE CHIEF COMPLAINT: UTI with sepsis HISTORY OF PRESENT ILLNESS: Surgical service following regards to abdominal distention due to constipation. Patient is having bowel movements. Suppository not given this morning. Patient is receiving the lactulose. He is tolerating tube feeds at goal. Abdominal x-ray from yesterday nonspecific abdomen without evidence of obstruction. No stool impaction. Moderate stool within the colon. PHYSICAL EXAM: VITAL SIGNS: Reviewed. GENERAL: in no acute distress. ABDOMEN: Soft. Less distended. Nontender. NEUROLOGIC: Awake, nonverbal ASSESSMENT: 1. Abdominal distention due to large stool burden in the rectum and sigmoid colon 2. History of multiple sclerosis and is paraplegic PLAN: -Continue lactulose -Continue tube feeds Physician Admin Asst note has been reviewed by physician. Signing provider agrees with the documented findings, assessment, and plan of care. Objective - Vital Signs Vital signs: Vital Signs Temp 97.8 F 02/16/25 08:00 Pulse 84 02/16/25 12:07 Resp 20 02/16/25 12:00 BP 138/83 02/16/25 12:00 Pulse Ox 99 02/16/25 12:00 FiO2 Intake & Output 02/15/25 02/16/25 02/16/25 18:59 06:59 18:59 Intake Total 5631 650 650 Output Total 1275 400 Balance 4356 250 650 Intake: IV 20 Invasive Line 2 20 Tube Feeding 5611 650 650 Output: Urine 1275 400 Other: Voiding Method Indwelling Catheter Indwelling Catheter # Voids 1 # Bowel Movements 2 - Labs CBC & Chem 7: 02/16/25 11:35 02/16/25 07:54 Labs: Abnormal Lab Results - Last 24 Hours (Table) 02/15/25 02/16/25 02/16/25 Range/Units 16:38 04:03 05:55 WBC (4.50-10.00) 10*3/uL RBC (4.40-5.60) 10*6/uL Hct (39.6-50.0) % MCHC (32.0-37.0) g/dL Immature Gran # (0.00-0.04) 10*3/uL Neutrophils # (1.80-7.70) 10*3/uL Monocytes # (0.20-1.00) 10*3/uL Eosinophils # (0.04-0.35) 10*3/uL Chloride (98-107) mmol/L Creatinine (0.66-1.25) mg/dL Glucose (74-99) mg/dL POC Glucose (mg/dL) 113 H 154 H 137 H (70-110) mg/dL Calcium (8.4-10.2) mg/dL 02/16/25 02/16/25 Range/Units 07:54 11:35 WBC 12.86 H (4.50-10.00) 10*3/uL RBC 5.85 H (4.40-5.60) 10*6/uL Hct 50.7 H (39.6-50.0) % MCHC 31.8 L (32.0-37.0) g/dL Immature Gran # 0.32 H (0.00-0.04) 10*3/uL Neutrophils # 9.96 H (1.80-7.70) 10*3/uL Monocytes # 1.45 H (0.20-1.00) 10*3/uL Eosinophils # 0.03 L (0.04-0.35) 10*3/uL Chloride 109 H (98-107) mmol/L Creatinine 0.60 L (0.66-1.25) mg/dL Glucose 130 H (74-99) mg/dL POC Glucose (mg/dL) (70-110) mg/dL Calcium 8.2 L (8.4-10.2) mg/dL Microbiology - Last 24 Hours (Table) 02/11/25 08:11 Blood Culture - Final Blood
[2025-02-16 13:53] VITALS: BMI 14.6
--- NOTE | 2025-02-16 16:09 | P.DS ---
Providers Date of admission: 02/11/25 11:09 Expected date of discharge: 02/16/25 Attending physician: Dara Crowe Consults: 02/11/25 09:39 Consult Physician Routine Consulting Provider: Nathan Yanez Consult Reason/Comments: copd, hypoxia, sepsis, pneumonia Do you want consulting provider notified?: Yes 02/11/25 11:07 Consult Physician Routine Consulting Provider: Sonal Farah Consult Reason/Comments: uti, sepsis Do you want consulting provider notified?: Yes 02/11/25 13:36 Consult Physician Routine Consulting Provider: Enrique Case Consult Reason/Comments: ABD DISTENSION Do you want consulting provider notified?: Yes 02/11/25 15:15 Consult Physician Urgent Consulting Provider: Bruce Abebe Consult Reason/Comments: chronic aggarwal, aggarwal issues, penile lesion, leaking around new catheter Do you want consulting provider notified?: Yes Primary care physician: DEANGELO NEUMANN MD Hospital Course: Final diagnosis Sepsis with acute urinary tract infection, present on admission with polymicrobial gram-negative bacilli as well as group D Enterococcus with Proteus Mirabella's likely secondary to chronic indwelling Aggarwal catheter Abdominal distention with fecal impaction, improved and patient is having bowel movements History of DVT Hypertension History of seizure disorder History of multiple sclerosis and paraplegia ESBL, MRSA Severe protein calorie malnutrition with a BMI of 14.7 GI prophylaxis DVT prophylaxis Full code Discharge disposition Patient is being discharged in a stable condition with guarded prognosis to [facility]. Patient will follow-up with in the outpatient setting upon discharge. Patient is to continue with Augmentin twice daily for 5 days and also bowel regimen scheduled as well as as needed. Continue chronic indwelling Aggarwal catheter with Aggarwal care. Total time taken is greater than 35 minutes. Hospital course This is a 64-year-old male who was recently admitted with concerns of UTI and Aggarwal issues with a chronic indwelling Aggarwal catheter. Patient evaluated by urology recommend to continue with chronic indwelling Aggarwal catheter with Aggarwal care and was also evaluated by infectious disease maintained on antibiotics and will transition to oral Augmentin for 5 days on discharge. Patient did have significant stool burden noted on imaging and was evaluated by general surgery recommending to continue with scheduled bowel regimen as well as as needed. Patient to continue with strict aspiration precautions and PEG tube as mentioned below and head of the bed elevated 30 to 45 degrees at all times. Patient has been cleared by consultations and will be returning to [facility] where he resides. Please refer to consultation notes for further HPI. Physical exam: Gen: This is a 64-year-old male who is awake, alert and oriented x 0-1, nonverbal, elderly appearing, ill-appearing chronically, cachectic HEENT: Head is atraumatic, normocephalic. Pupils equal, round. Sclerae is anicteric. NECK: Supple. No JVD. No lymphadenopathy. No thyromegaly. LUNGS: Clear to auscultation. No wheezes or rhonchi. No intercostal retractions. HEART: Regular rate and rhythm. No murmur. ABDOMEN: Soft. Bowel sounds are present. No masses. No tenderness. EXTREMITIES: No pedal edema. No calf tenderness. NEUROLOGICAL: Patient is awake, alert and oriented x0-1 baseline. Cranial nerves 2 through 12 are grossly intact. Bedbound Please refer to medication reconciliation sheet for a list of medications. The impression and plan of care has been dictated by Paula Ruiz, Nurse Practitioner as directed. Dr. Sebastien MD I have performed a history and examination and MDM of this patient, discussed the same with the dictator, and agree with the dictator's assessment and plan as written ,documented as a scribe. Based on total visit time, I have performed more than 50% of the visit. Patient Condition at Discharge: Fair Plan - Discharge Summary Discharge Rx Participant: No New Discharge Prescriptions: New bisacodyL [Dulcolax] 10 mg RECTAL DAILY suppositor Enoxaparin [Lovenox] 40 mg SQ DAILY each Formoterol Fumarate [Perforomist] 20 mcg INHALATION RT-BID ml predniSONE See Taper PO DIRECTED #30 tab Budesonide [Pulmicort] 1 mg INHALATION RT-BID ml Amoxic-Pot Clav 875-125Mg [Augmentin 875-125] 1 tab PO Q12HR 5 Days #10 tab Ipratropium-Albuterol Nebulize [Duoneb 0.5 mg-3 mg/3 ml Soln] 3 ml INHALATION RT-Q2H PRN each PRN Reason: Shortness Of Breath Or Wheezing Continue Aspirin 81 mg PEG/G-TUBE DAILY Acetaminophen Tab [Tylenol] 650 mg PEG/G-TUBE Q4H PRN PRN Reason: Fever And/ Or Pain carBAMazepine [carBAMazepine Oral Susp] 100 mg PEG/G-TUBE TID Scopolamine [Scopolamine 1 MG/72 HR patch] 1 patch TRANSDERM Q72H Lactulose 20 gm PEG/G-TUBE TID Ipratropium-Albuterol Nebulize [Duoneb 0.5 mg-3 mg/3 ml Soln] 3 ml INHALATION RT-TID Baclofen 5 mg PEG/G-TUBE TID bisacodyL [Dulcolax] 10 mg RECTAL DAILY PRN PRN Reason: Constipation Sennosides [Senokot] 8.6 mg PEG/G-TUBE BID #60 tab Uti-Stat Oral Liquid(Cranberry-Vitamin C-Inulin) 30 ml PEG/G-TUBE DAILY Lacosamide [Vimpat Oral Soln] 150 mg PEG/G-TUBE BID #100 ml Metoprolol Tartrate [Lopressor] 50 mg PEG/G-TUBE BID oxyBUTYnin chloride 5 mg PEG/G-TUBE DAILY Famotidine [Pepcid] 20 mg PEG/G-TUBE DAILY amantadine HCL [Amantadine] 100 mg PEG/G-TUBE DAILY Omeprazole 20 mg PEG/G-TUBE DAILY Losartan [Cozaar] 12.5 mg PEG/G-TUBE DAILY Discharge Medication List Aspirin 81 mg PEG/G-TUBE DAILY 11/27/20 [History] Acetaminophen Tab [Tylenol] 650 mg PEG/G-TUBE Q4H PRN 06/13/21 [History] Metoprolol Tartrate [Lopressor] 50 mg PEG/G-TUBE BID 06/13/21 [History] carBAMazepine [carBAMazepine Oral Susp] 100 mg PEG/G-TUBE TID 07/02/21 [History] Lactulose 20 gm PEG/G-TUBE TID 01/03/22 [History] Scopolamine [Scopolamine 1 MG/72 HR patch] 1 patch TRANSDERM Q72H 01/03/22 [History] oxyBUTYnin chloride 5 mg PEG/G-TUBE DAILY 12/19/22 [History] Famotidine [Pepcid] 20 mg PEG/G-TUBE DAILY 07/14/23 [History] Ipratropium-Albuterol Nebulize [Duoneb 0.5 mg-3 mg/3 ml Soln] 3 ml INHALATION RT-TID 11/18/23 [History] Baclofen 5 mg PEG/G-TUBE TID 07/25/24 [History] amantadine HCL [Amantadine] 100 mg PEG/G-TUBE DAILY 07/25/24 [History] bisacodyL [Dulcolax] 10 mg RECTAL DAILY PRN 07/25/24 [History] Sennosides [Senokot] 8.6 mg PEG/G-TUBE BID #60 tab 10/28/24 [Rx] Losartan [Cozaar] 12.5 mg PEG/G-TUBE DAILY 02/11/25 [History] Omeprazole 20 mg PEG/G-TUBE DAILY 02/11/25 [History] Uti-Stat Oral Liquid(Cranberry-Vitamin C-Inulin) 30 ml PEG/G-TUBE DAILY 02/11/25 [History] Amoxic-Pot Clav 875-125Mg [Augmentin 875-125] 1 tab PO Q12HR 5 Days #10 tab 02/16/25 [Rx] Budesonide [Pulmicort] 1 mg INHALATION RT-BID ml 02/16/25 [Rx] Enoxaparin [Lovenox] 40 mg SQ DAILY each 02/16/25 [Rx] Formoterol Fumarate [Perforomist] 20 mcg INHALATION RT-BID ml 02/16/25 [Rx] Ipratropium-Albuterol Nebulize [Duoneb 0.5 mg-3 mg/3 ml Soln] 3 ml INHALATION RT-Q2H PRN each 02/16/25 [Rx] Lacosamide [Vimpat Oral Soln] 150 mg PEG/G-TUBE BID #100 ml 02/16/25 [Rx] bisacodyL [Dulcolax] 10 mg RECTAL DAILY suppositor 02/16/25 [Rx] predniSONE See Taper PO DIRECTED #30 tab 02/16/25 [Rx] Follow up Appointment(s)/Referral(s): DEANGELO NEUMANN MD [Primary Care Provider] - 1-2 days Activity/Diet/Wound Care/Special Instructions: Activity as tolerated Patient is returning to [facility] Continue with oral Augmentin PEG tube for 5 days twice daily per ID recommendations Continue with aspiration precautions and tube feedings with Jevity 1.5 continuous and goal rate is 65 with total volume of 1560 mL/day and also free water boluses of 40 mL every 4 hours Monitor residuals closely Continue strict aspiration precautions of 45 degrees had elevated on the bed Continue with Aggarwal care and urology follow-up outpatient Discharge Disposition: TRANSFER TO SNF/ECF
[2025-02-16 17:01] LABS: Glucose,Whole Blood 143 mg/dL (70-110)
--- NOTE | 2025-02-16 17:01 | P.PN ---
Subjective Progress Note Date: 02/16/25 Principal diagnosis: Reason for follow-up is sepsis/UTI Patient is a 64-year-old male with multiple comorbidities including MS bedbound state history of recurrent UTI admitted to hospital with sepsis concerning for UTI probably this consultation. On today's evaluation that is 02/16/2025, the patient continues to be afebrile, the patient is on room air and breathing comfortably, the Pt does not seem to be any distress he is nonverbal cannot provide any history no vomiting or diarrhea reported by the nursing staff. Patient white count is 12.86 creatinine 0.62 urine culture with Proteus Enterococcus faecalis Objective - Vital Signs Vital signs: Vital Signs Temp 97.8 F 02/16/25 08:00 Pulse 68 02/16/25 08:18 Resp 20 02/16/25 08:00 BP 145/83 02/16/25 08:00 Pulse Ox 95 02/16/25 08:00 FiO2 Intake & Output 02/15/25 02/16/25 02/16/25 18:59 06:59 18:59 Intake Total 5631 650 Output Total 1275 400 Balance 4356 250 Intake: IV 20 Invasive Line 2 20 Tube Feeding 5611 650 Output: Urine 1275 400 Other: Voiding Method Indwelling Catheter Indwelling Catheter # Voids 1 # Bowel Movements 2 - Exam GENERAL DESCRIPTION: An elderly male lying in bed in no distress RESPIRATORY SYSTEM: Unlabored breathing , coarse breath sounds bilaterally HEART: S1 S2 regular rate and rhythm , ABDOMEN: Soft , no tenderness EXTREMITIES: No edema feet - Labs CBC & Chem 7: 02/16/25 11:35 02/16/25 07:54 Labs: Abnormal Lab Results - Last 24 Hours (Table) 02/15/25 02/15/25 02/16/25 Range/Units 11:20 16:38 04:03 Chloride (98-107) mmol/L Creatinine (0.66-1.25) mg/dL Glucose (74-99) mg/dL POC Glucose (mg/dL) 119 H 113 H 154 H (70-110) mg/dL Calcium (8.4-10.2) mg/dL 02/16/25 02/16/25 Range/Units 05:55 07:54 Chloride 109 H (98-107) mmol/L Creatinine 0.60 L (0.66-1.25) mg/dL Glucose 130 H (74-99) mg/dL POC Glucose (mg/dL) 137 H (70-110) mg/dL Calcium 8.2 L (8.4-10.2) mg/dL Assessment and Plan (1) Sepsis Current Visit: Yes Status: Acute Code(s): A41.9 - SEPSIS, UNSPECIFIED ORGANISM SNOMED Code(s): 35891959 (2) UTI (urinary tract infection) Current Visit: Yes Status: Acute Code(s): N39.0 - URINARY TRACT INFECTION, SITE NOT SPECIFIED SNOMED Code(s): 22587077 (3) Allergy to multiple antibiotics Current Visit: No Status: Acute Code(s): Z88.1 - ALLERGY STATUS TO OTHER ANTIBIOTIC AGENTS SNOMED Code(s): 406529549 Plan: 1patient presented the hospital with sepsis in this patient who did have a heart rate of 94 elevated white count low-grade fever meeting currently for SIRS/sepsis source is likely catheter since UTI in this patient with a history of infection with ESBL pathogen will need to cover for resistant pathogen while waiting for the culture to finalize 2patient with multiple antibiotic ALLERGIES that would limit the number of antibiotic safe to use 3patient urine is growing group D Enterococcus and Proteus both sensitive to Unasyn 4plan to finish therapy with a short course of oral Augmentin on discharge discussed with AIR POLLUTION INSPECTOR for admitting team Dictation was produced using [employer] dictation software. please excuse any grammatical, word or spelling errors. Time with Patient: Less than 30
[2025-02-16 20:08] VITALS: PULSE 88
--- NOTE | 2025-02-18 10:36 | CDI ---
Documentation Clarification Form Date: 02/18/25 From: Katia Hernandez Admit Date: 02/11/2025 11:09:00 AM Patient Name: Chris Marvin Visit Number: [id number] Discharge Date: 02/16/2025 08:28:00 PM ATTENTION: The Clinical Documentation Specialists (CDI) and [facility] Coding Staff appreciate your assistance in clarifying documentation. Please respond to the clarification below the line at the bottom and electronically sign. The CDI & [facility] Coding staff will review the response and follow-up if needed. Please note: Queries are made part of the Legal Health Record. If you have any questions, please contact the author of this message via ITS. Doctor/Provider: Dara Crowe, A coccyx pressure ulcer is documented in the ED Note. Additional clarification regarding the stage of the pressure ulcer is requested. History/Risk Factors: MS, paraplegic, bedridden, COPD, recurrent UTIs due Stein catheter, neurogenic bladder, gastrostomy, epilepsy, HTN Clinical Indicators: Coccyx pressure injury per Pressure Injury Assessment History Location: coccyx Wound description: Stage II, tunneling present in middle of the wound Treatment: Foam with border Please clarify the stage of pressure ulcer coccyx, if known: [ ] Stage 2 Pressure Ulcer Coccyx [ ] Unable to determine Clinical Definitions: Stage 1 Pressure Ulcer: intact skin, non-blanching redness of local area Stage 2 Pressure Ulcer: Partial thickness, loss of dermis, pink wound bed Stage 3 Pressure Ulcer: Full thickness tissue loss Stage 4 Pressure Ulcer: Full thickness tissue loss with exposed bone, tendon, or muscle. Unstageable pressure ulcer: Full thickness tissue loss in which the base of the ulcer is covered by slough (yellow, vaz, suarez, green or brown) and/or eschar (vaz, brown or black) in the wound bed. Stage 2 Pressure Ulcer Coccyx MTDD
== END 2025-02-16 20:28 | DRG 698 ==
LOC: EC 07:51 → 3SCARD 11:09
PROVIDERS: ADMIT Hospitalist; ATTEND Hospitalist
DX: T83.511A Infection and inflammatory reaction due to indwelling urethral catheter, initial encounter (principal); A41.59 Other Gram-negative sepsis; A41.81 Sepsis due to Enterococcus; I21.A1 Myocardial infarction type 2; J96.01 Acute respiratory failure with hypoxia; R65.20 Severe sepsis without septic shock; E43 Unspecified severe protein-calorie malnutrition; I42.9 Cardiomyopathy, unspecified; E88.A Wasting disease (syndrome) due to underlying condition; L89.152 Pressure ulcer of sacral region, stage 2; G82.20 Paraplegia, unspecified; G35 Multiple sclerosis; G40.909 Epilepsy, unspecified, not intractable, without status epilepticus; F03.90 Unspecified dementia, unspecified severity, without behavioral disturbance, psychotic disturbance, mood disturbance, and anxiety; J44.9 Chronic obstructive pulmonary disease, unspecified; I10 Essential (primary) hypertension; Z16.12 Extended spectrum beta lactamase (ESBL) resistance; Z16.24 Resistance to multiple antibiotics; Z68.1 Body mass index [BMI] 19.9 or less, adult; Z93.1 Gastrostomy status; K56.41 Fecal impaction; N39.0 Urinary tract infection, site not specified; T83.091A Other mechanical complication of indwelling urethral catheter, initial encounter; N36.8 Other specified disorders of urethra; K21.9 Gastro-esophageal reflux disease without esophagitis; N20.0 Calculus of kidney; R13.10 Dysphagia, unspecified; N31.9 Neuromuscular dysfunction of bladder, unspecified; S72.052S Unspecified fracture of head of left femur, sequela; M21.952 Unspecified acquired deformity of left thigh; R47.1 Dysarthria and anarthria; Z79.82 Long term (current) use of aspirin; Z79.899 Other long term (current) drug therapy; Z86.14 Personal history of Methicillin resistant Staphylococcus aureus infection; Z87.440 Personal history of urinary (tract) infections; Z86.718 Personal history of other venous thrombosis and embolism; Z87.01 Personal history of pneumonia (recurrent); Y84.6 Urinary catheterization as the cause of abnormal reaction of the patient, or of later complication, without mention of misadventure at the time of the procedure; Y92.122 Bedroom in nursing home as the place of occurrence of the external cause; Z88.1 Allergy status to other antibiotic agents; Z74.01 Bed confinement status
CPT/HCPCS: 36415; 36600; 51702; 70450; 71045; 71275; 74019; 74022; 74177; 80048; 80053; 80202; 80306; 80320; 81001; 82140; 82565; 82805; 83605; 83735; 83880; 84484; 85025; 85610; 85730; 87040; 87077; 87086; 87186; 87636; 93005; 94640; 96361; 96365; 96366; 96367; 96368; 96375; 99291

== ENCOUNTER 2025-04-10 06:10 | Emergency (ER) | payer MEDICARE, OTHER ==
--- NOTE | 2025-04-10 06:26 | ED ---
General Adult HPI - General Chief complaint: Recheck/Abnormal Lab/Rx Stated complaint: PEG Tube removed Time Seen by Provider: 04/10/25 06:11 Source: EMS, old records reviewed, Caregiver Mode of arrival: EMS Limitations: altered mental status, physical limitation - History of Present Illness Initial comments: This is a 64-year-old male who presents to the emergency department for PEG tube replacement. Patient lives at [facility] and has a history of MS, cognitive impairment, and several other comorbidities. He is dependent on a PEG tube and is largely nonverbal. He is also A&O x 0 at baseline. He reportedly pulled out his PEG tube at some point overnight and he was sent in to have it replaced. - Related Data Home Medications Medication Instructions Recorded Confirmed Aspirin 81 mg PEG/G-TUBE DAILY 11/27/20 02/11/25 Acetaminophen Tab [Tylenol] 650 mg PEG/G-TUBE Q4H PRN 06/13/21 02/11/25 Metoprolol Tartrate [Lopressor] 50 mg PEG/G-TUBE BID 06/13/21 02/11/25 carBAMazepine [carBAMazepine Oral 100 mg PEG/G-TUBE TID 07/02/21 02/11/25 Susp] Lactulose 20 gm PEG/G-TUBE TID 01/03/22 02/11/25 Scopolamine [Scopolamine 1 MG/72 1 patch TRANSDERM Q72H 01/03/22 02/11/25 HR patch] oxyBUTYnin chloride 5 mg PEG/G-TUBE DAILY 12/19/22 02/11/25 Famotidine [Pepcid] 20 mg PEG/G-TUBE DAILY 07/14/23 02/11/25 Ipratropium-Albuterol Nebulize 3 ml INHALATION RT-TID 11/18/23 02/11/25 [Duoneb 0.5 mg-3 mg/3 ml Soln] Baclofen 5 mg PEG/G-TUBE TID 07/25/24 02/11/25 amantadine HCL [Amantadine] 100 mg PEG/G-TUBE DAILY 07/25/24 02/11/25 bisacodyL [Dulcolax] 10 mg RECTAL DAILY PRN 07/25/24 02/11/25 Losartan [Cozaar] 12.5 mg PEG/G-TUBE DAILY 02/11/25 02/11/25 Omeprazole 20 mg PEG/G-TUBE DAILY 02/11/25 02/11/25 Uti-Stat Oral 30 ml PEG/G-TUBE DAILY 02/11/25 02/11/25 Liquid(Cranberry-Vitamin C-Inulin) Previous Rx's Medication Instructions Recorded Sennosides [Senokot] 8.6 mg PEG/G-TUBE BID #60 tab 10/28/24 Amoxic-Pot Clav 875-125Mg 1 tab PO Q12HR 5 Days #10 tab 02/16/25 [Augmentin 875-125] Budesonide [Pulmicort] 1 mg INHALATION RT-BID ml 02/16/25 Enoxaparin [Lovenox] 40 mg SQ DAILY each 02/16/25 Formoterol Fumarate [Perforomist] 20 mcg INHALATION RT-BID ml 02/16/25 Ipratropium-Albuterol Nebulize 3 ml INHALATION RT-Q2H PRN each 02/16/25 [Duoneb 0.5 mg-3 mg/3 ml Soln] Lacosamide [Vimpat Oral Soln] 150 mg PEG/G-TUBE BID #100 ml 02/16/25 bisacodyL [Dulcolax] 10 mg RECTAL DAILY suppositor 02/16/25 predniSONE See Taper PO DIRECTED #30 tab 02/16/25 Allergies Allergy/AdvReac Type Severity Reaction Status Date / Time meropenem [From Merrem] Allergy Rash/Hives Verified 04/10/25 06:13 ceftolozane [From Zerbaxa] AdvReac Rapid Verified 04/10/25 06:13 Heart Rate tazobactam [From Zerbaxa] AdvReac Rapid Verified 04/10/25 06:13 Heart Rate Review of Systems ROS Statement: Those systems with pertinent positive or pertinent negative responses have been documented in the HPI. ROS Other: All systems not noted in ROS Statement are negative. Past Medical History Past Medical History: Deep Vein Thrombosis (DVT), GERD/Reflux, Hypertension, Musculoskeletal Disorder, Neurologic Disorder, Pneumonia, Seizure Disorder, Skin Disorder Additional Past Medical History / Comment(s): Pt diagnosed with MS at the age of 39 yrs, seizure/pneumonia/UTI with sepsis/respirtory failure/vented, cognitive impairment, sister states when he is feeling well he could speak a few words/nod head appropriately/give thumbs up/roll eyes but when ill is nonverbal, pt has dysphagia/NPO with peg tube, contractures, last seizure 07/2020, trigeminal neuralgia, dysarthria/anarthria/neurogenic bladder with IDC-UTIs/sepsis, multiple pneumonias, recent seizure-last one 07/03/20, incontinent of stool, pt has had decubitus ulcer coccyx-sister unsure of skin condition at this time, past anemia r/t heparin/epistaxiis which involved nasal packing/transfusions, DVT bilateral arms, hypoxia, oxygen at 2L/NC, L femoral head fracture History of Any Multi-Drug Resistant Organisms: ESBL, MRSA Date of last positivie culture/infection: 01/02/25-ESBL; 03/09/21-MRSA MDRO Source:: ESBL-urine; MRSA-abdomen/pegsite Past Surgical History: Tonsillectomy Additional Past Surgical History / Comment(s): Gastrostomy, peg tube, I&D coccyx decubitius, bronchoscopy, bilateral lasik eye surgery. Past Anesthesia/Blood Transfusion Reactions: No Reported Reaction Additional Past Anesthesia/Blood Transfusion Reaction / Comment(s): Pt has received blood in past without reaction. Past Psychological History: Depression Smoking Status: Never smoker Past Alcohol Use History: None Reported Past Drug Use History: None Reported - Past Family History Father Family Medical History: Myocardial Infarction ([place]) Mother Family Medical History: Hypertension, Myocardial Infarction ([place]) Additional Family Medical History / Comment(s): Mother of a VA at the age of 73 yrs. General Exam Limitations: altered mental status, physical limitation General appearance: alert, in no apparent distress Head exam: Present: atraumatic, normocephalic, normal inspection Respiratory exam: Present: normal lung sounds bilaterally. Absent: respiratory distress, wheezes, rales, rhonchi, stridor Cardiovascular Exam: Present: regular rate, normal rhythm GI/Abdominal exam: Present: other (PEG tube site is clean and dry. No surrounding erythema or induration.) Neurological exam: Present: alert Skin exam: Present: warm, dry, intact Course Vital Signs 04/10/25 06:15 Temperature 98.7 F Pulse Rate 54 L Respiratory 20 Rate Blood Pressure 154/72 O2 Sat by Pulse 98 Oximetry Procedures - Feeding Tube Replacement Reason for Replacement: patient removed/pulled out Initial Tube Inserted: greater than 2 weeks Type of Tube: gastrostomy Use of Tube: medications and feeding Insertion Site Prior to Procedure: clean Portuguese Tube Size (F): 14 Balloon Size (mls): 5 Verification of Placement: KUB, gastrografin injection Tube Secured by: G-tube attachment device Medical Decision Making - Medical Decision Making This is a 64-year-old male who presents to the emergency department for PEG tube replacement. Was pt. sent in by a medical professional or institution? @ -No Did you speak to anyone other than the patient for history? @ -EMS provided all of the history. Did you review nursing and triage notes? @ -Yes, and I agree, it is accurate with regards to the patient's symptoms. Were old charts reviewed? @ -No Differential Diagnosis? @ -PEG tube malfunction, PEG tube displacement, PEG tube removal, infection, this is not meant to be an all-inclusive list. EKG interpreted by me (3pts min.)? @ -Not obtained X-rays interpreted by me (1pt min.)? @ -KUB x-ray obtained. My interpretation identifies no extravasation of contrast. CT interpreted by me (1pt min.)? @ -Not obtained U/S interpreted by me (1pt. min.)? @ -Not obtained What testing was considered but not performed? (CT, X-rays, U/S, labs)? Why? @ -None What meds were considered but not given? Why? @ -None Did you discuss the management of the patient with other professionals? @ -No Did you reconcile home meds? @ -No Was smoking cessation discussed for >3mins.? @ -No Was critical care preformed (if so, how long)? @ -No Were there social determinants of health that impacted care today? How? (Homelessness, low income, unemployed, alcoholism, drug addiction, transportation, low edu. Level, literacy, decrease access to med. care, detention, rehab)? @ -No Was there de-escalation of care discussed even if they declined? (Discuss DNR or withdrawal of care, Hospice)? @ -No What co-morbidities impacted this encounter? (DM, HTN, Smoking, COPD, CAD, Cancer, CVA, Hep., AIDS, mental health diagnosis, sleep apnea, morbid obesity)? @ -MS Was patient admitted / discharged? @ -Discharged. Patient's PEG tube site was clean and dry. There was no eryth estrella, induration, or other signs of infection. On review of prior ER documentation, when he last pulled this out it was replaced with a 14 Portuguese PEG tube. 14 Portuguese PEG tube was again used this time and replaced without difficulty. Placement confirmed with KUB x-ray and Gastrografin injection. Patient discharged back to [facility] via EMS in stable condition. Case discussed with ED attending Dr. Kc. Undiagnosed new problem with uncertain prognosis? @ -None Drug Therapy requiring intensive monitoring for toxicity (Heparin, Nitro, Insu yonis, Cardizem)? @ -None Were any procedures done? @ -PEG tube replacement Diagnosis/symptom? @ -PEG tube displacement Acute, or Chronic, or Acute on Chronic? @ -Acute Uncomplicated (without systemic symptoms) or Complicated (systemic symptoms)? @ -Uncomplicated Side effects of treatment? @ -None Exacerbation, Progression, or Severe Exacerbation] @ -Not applicable Poses a threat to life or bodily function? @ -No - Radiology Data Radiology results: report reviewed, image reviewed Disposition Clinical Impression: Displacement of other gastrointestinal prosthetic devices, implants and grafts, initial encounter Disposition: HOME SELF-CARE Instructions (If sedation given, give patient instructions): Percutaneous Endoscopic Gastrostomy (ED), How to Use and Care for Your PEG Tube (ED) Additional Instructions: Return to the emergency department with any new, worsening, or concerning symptoms. Follow up with your primary care provider in 1-2 days. Is patient prescribed a controlled substance at d/c from ED?: No Referrals: DEANGELO NEUMANN MD [Primary Care Provider] - 1-2 days Time of Disposition: 06:50
--- NOTE | 2025-04-10 06:44 | XR ---
EXAMINATION TYPE: XR abdomen 1V DATE OF EXAM: 04/10/2025 6:33 AM CLINICAL INDICATION: Male, 64 years old with history of Confirm PEG tub placement, pain TECHNIQUE: 1 view of the abdomen. COMPARISON: Abdominal x-ray February 15, 2025. FINDINGS: PEG tube overlies the epigastric region. Contrast from injection fills distal stomach into duodenal sweep. No extravasation is seen. Overall nonspecific bowel gas pattern. IMPRESSION: As above. [facility], Workstation: [facility], 04/10/2025 6:41 AM
[2025-04-10 07:26] VITALS: RESP 18; TEMP 98
[2025-04-10 08:26] VITALS: BP 158/76; PULSE 61
== END 2025-04-10 08:28 | disposition home or self-care (01) ==
LOC: EC 06:10
DX: T85.528A Displacement of other gastrointestinal prosthetic devices, implants and grafts, initial encounter (principal); Z88.8 Allergy status to other drugs, medicaments and biological substances
CPT/HCPCS: 43762; 74018; 99283

== ENCOUNTER 2025-04-17 17:22 | Inpatient (IN) | payer MEDICARE, OTHER ==
[2025-04-17 18:04] LABS: Basophils # (A) 0.09 10*3/uL (0.00-0.10); Basophils % (A) 0.3 %; Eosinophils # (A) 0.08 10*3/uL (0.04-0.35); Eosinophils % (A) 0.3 %; HCT 48.4 % (39.6-50.0); HGB 15.2 g/dL (13.0-17.0); Lymphocytes # (A) 0.42 10*3/uL (0.90-5.00); Lymphocytes % (A) 1.6 %; MCH 26.9 pg (27.0-32.0); MCHC 31.4 g/dL (32.0-37.0); MCV 85.7 fL (80.0-97.0); Monocytes # (A) 0.73 10*3/uL (0.20-1.00); Monocytes % (A) 2.7 %; Neutrophils # (A) 25.13 10*3/uL (1.80-7.70); Neutrophils % (A) 94.5 %; Platelet Count 356 10*3/uL (140-440); RBC 5.65 10*6/uL (4.40-5.60); RDW 15.8 % (11.5-14.5); WBC 26.61 10*3/uL (4.50-10.00)
[2025-04-17] MEDS: LEVOFLOXACIN 750MG-D5W PMX 750 MG in DEXTROSE/WATER 1 150ML.BAG IVPB STA (18:15)
[2025-04-17] MEDS: LACTATED RINGERS 1,000 ML IV ONE ×2 (18:16→20:32)
[2025-04-17 18:17] LABS: ALT 26 U/L (4-49); AST 25 U/L (17-59); African American GFR (CKD) >90 (>60 ml/min/1.73 sqM); Albumin 4.2 g/dL (3.5-5.0); Alkaline Phosphatase 113 U/L (38-126); Anion Gap 15 mmol/L; Blood Urea Nitrogen 24 mg/dL (9-20); Calcium 9.1 mg/dL (8.4-10.2); Carbon Dioxide 22 mmol/L (22-30); Chloride 109 mmol/L (98-107); Glucose 90 mg/dL (74-99); Non-African American GFR(CKD) >90 (>60 ml/min/1.73 sqM); Potassium 4.7 mmol/L (3.5-5.1); Sodium 146 mmol/L (137-145); Total Protein 7.8 g/dL (6.3-8.2)
[2025-04-17 18:23] LABS: Bacteria,Urine Few /hpf; Bilirubin,Urine Negative (Negative); Blood,Urine Moderate (Negative); Color,Urine Yellow; Glucose,Urine (UA) Negative (Negative); Ketones,Urine Negative (Negative); Leukocyte Esterase,Urine Large (Negative); Mucus,Urine Rare /hpf; Nitrite,Urine Negative (Negative); PH, Urine 8.0 (5.0-8.0); Protein,Urine 1+ (Negative); RBC,Urine >182 /hpf (0-5); Specific Gravity,Urine 1.016 (1.001-1.035); Squamous Epithelial Cell,Urine 1 /hpf (0-4); Triple Phosphate Crystal,Urine Many /hpf; Urobilinogen,Urine <2.0 mg/dL (<2.0); WBC,Urine 63 /hpf (0-5)
[2025-04-17 18:26] LABS: INR 1.0 (<1.2); NT-Pro-B-Type Natriuretic Pept 1230 pg/mL; Partial Thromboplastin Time 22.7 sec (22.0-30.0); Prothrombin Time 11.2 sec (10.0-12.5)
--- NOTE | 2025-04-17 18:29 | XR ---
EXAMINATION TYPE: XR chest 1V DATE OF EXAM: 04/17/2025 6:08 PM COMPARISON: Chest radiographs from 02/12/2025 CLINICAL INDICATION: Male, 64 years old with history of difficulty breathing; TECHNIQUE: XR chest 1V Frontal view of the chest. FINDINGS: Lungs/Pleura: There is no evidence of pleural effusion, focal consolidation, or pneumothorax. Pulmonary vascularity: Pulmonary vascular congestion. Heart/mediastinum: Cardiomediastinal silhouette is enlarged. Musculoskeletal: No acute osseous pathology. Other findings: None IMPRESSION: No acute cardiopulmonary disease/process. [facility], , 04/17/2025 6:27 PM
--- NOTE | 2025-04-17 18:29 | ED ---
General Adult HPI - General Chief complaint: Shortness of Breath Stated complaint: FELICITA Time Seen by Provider: 04/17/25 17:24 Source: patient Mode of arrival: EMS Limitations: no limitations - History of Present Illness Initial comments: Patient is a 64-year-old gentleman with a past medical history of paraplegia presenting today for shortness of breath. History provided patient's sister as patient is paraplegic and nonverbal. Patient apparently had some noisy breathing on Sunday when she saw him and was drowsier than normal. Today facility sent him here due to concern for shortness of breath. Upon arrival here he was noted to be febrile. Patient sister states that at baseline he does attempt to talk, though he does not follow commands because of his paraplegia. States that he today he is not at baseline. Has been dealing with a [facility] er. - Related Data Home Medications Medication Instructions Recorded Confirmed Aspirin 81 mg PEG/G-TUBE DAILY 11/27/20 04/17/25 carBAMazepine [carBAMazepine Oral 100 mg PEG/G-TUBE TID 07/02/21 04/17/25 Susp] Lactulose 20 gm PEG/G-TUBE TID 01/03/22 04/17/25 Scopolamine [Scopolamine 1 MG/72 1 patch TRANSDERM Q72H 01/03/22 04/17/25 HR patch] oxyBUTYnin chloride 5 mg PEG/G-TUBE DAILY 12/19/22 04/17/25 Famotidine [Pepcid] 20 mg PEG/G-TUBE DAILY 07/14/23 04/17/25 Ipratropium-Albuterol Nebulize 3 ml INHALATION RT-TID 11/18/23 04/17/25 [Duoneb 0.5 mg-3 mg/3 ml Soln] Baclofen 5 mg PEG/G-TUBE TID 07/25/24 04/17/25 amantadine HCL [Amantadine] 100 mg PEG/G-TUBE DAILY 07/25/24 04/17/25 bisacodyL [Dulcolax] 10 mg RECTAL DAILY PRN 07/25/24 04/17/25 Losartan [Cozaar] 25 mg PEG/G-TUBE DAILY 02/11/25 04/17/25 Omeprazole 20 mg PEG/G-TUBE DAILY 02/11/25 04/17/25 Uti-Stat Oral 30 ml PEG/G-TUBE DAILY 02/11/25 04/17/25 Liquid(Cranberry-Vitamin C-Inulin) Budesonide [Pulmicort] 1 mg INHALATION RT-Q12H 04/17/25 04/17/25 Ipratropium-Albuterol Nebulize 3 ml INHALATION RT-Q4H PRN 04/17/25 04/17/25 [Duoneb 0.5 mg-3 mg/3 ml Soln] Lacosamide [Vimpat Oral Soln] 150 mg PEG/G-TUBE Q12H 04/17/25 04/17/25 Metoprolol Tartrate [Lopressor] 12.5 mg PEG/G-TUBE BID 04/17/25 04/17/25 Sennosides [Senokot] 8.6 mg PEG/G-TUBE Q12H 04/17/25 04/17/25 guaiFENesin SYRUP 100MG/5ML 200 mg PEG/G-TUBE BID 04/17/25 04/17/25 [Robitussin] Allergies Allergy/AdvReac Type Severity Reaction Status Date / Time meropenem [From Merrem] Allergy Rash/Hives Verified 04/17/25 19:02 ceftolozane [From Zerbaxa] AdvReac Rapid Verified 04/17/25 19:02 Heart Rate tazobactam [From Zerbaxa] AdvReac Rapid Verified 04/17/25 19:02 Heart Rate Review of Systems ROS Statement: Those systems with pertinent positive or pertinent negative responses have been documented in the HPI. ROS Other: All systems not noted in ROS Statement are negative. Past Medical History Past Medical History: Deep Vein Thrombosis (DVT), GERD/Reflux, Hypertension, Musculoskeletal Disorder, Neurologic Disorder, Pneumonia, Seizure Disorder, Skin Disorder Additional Past Medical History / Comment(s): Pt diagnosed with MS at the age of 39 yrs, seizure/pneumonia/UTI with sepsis/respirtory failure/vented, cognitive impairment, sister states when he is feeling well he could speak a few words/nod head appropriately/give thumbs up/roll eyes but when ill is nonverbal, pt has dysphagia/NPO with peg tube, contractures, last seizure 07/2020, trigeminal neuralgia, dysarthria/anarthria/neurogenic bladder with IDC-UTIs/sepsis, multiple pneumonias, recent seizure-last one 07/03/20, incontinent of stool, pt has had decubitus ulcer coccyx-sister unsure of skin condition at this time, past anemia r/t heparin/epistaxiis which involved nasal packing/transfusions, DVT bilateral arms, hypoxia, oxygen at 2L/NC, L femoral head fracture History of Any Multi-Drug Resistant Organisms: ESBL, MRSA Date of last positivie culture/infection: 01/02/25-ESBL; 03/09/21-MRSA MDRO Source:: ESBL-urine; MRSA-abdomen/pegsite Past Surgical History: Tonsillectomy Additional Past Surgical History / Comment(s): Gastrostomy, peg tube, I&D coccyx decubitius, bronchoscopy, bilateral lasik eye surgery. Past Anesthesia/Blood Transfusion Reactions: No Reported Reaction Additional Past Anesthesia/Blood Transfusion Reaction / Comment(s): Pt has re ceived blood in past without reaction. Past Psychological History: Depression Smoking Status: Never smoker Past Alcohol Use History: None Reported Past Drug Use History: None Reported - Past Family History Father Family Medical History: Myocardial Infarction (ND) Mother Family Medical History: Hypertension, Myocardial Infarction (ND) Additional Family Medical History / Comment(s): Mother of a ND at the age of 73 yrs. General Exam - General Exam Comments Initial Comments: PE: CONSTITUTIONAL: In no acute distress, ill-appearing, flushed SKIN: Warm, dry, no jaundice, hives or petechiae EYES: Pupils are equally round, extraocular movements intact without nystagmus, clear conjunctiva, non-icteric sclera HENT: Normocephalic, atraumatic, moist mucus membranes, oropharynx clear without exudates NECK: , Full range of motion, normal appearance PULMONARY: Limited as pt makes noises with expireation, coarse breath sounds in bilatearl LL prater. no wheezes, decreased excursion, no accessory muscle use and no stridor CARDIOVASCULAR: Tachycardia, regular rate, rhythm, normal S1 and S2. No appreciated murmurs, rubs or gallops. Strong radial pulses with intact distal perfusion. No lower extremity edema GASTROINTESTINAL: Soft, active bowel sounds throughout, non-tender, non- distended, no palpable masses, no rebound or guarding. No hepatosplenomegaly MUSCULOSKELETAL: Extremities have no gross deformity, chronic muscle contractures NEUROLOGIC:_a/o x 0, quadriplegic, eyes open, makes incomprehensible noises sp onteously Limitations: no limitations Course Vital Signs 04/17/25 04/17/25 04/17/25 17:33 17:39 18:35 Temperature 103.4 F H Pulse Rate 135 H 128 H Respiratory 27 H 20 27 H Rate Blood Pressure 143/69 134/80 O2 Sat by Pulse 96 96 Oximetry 04/17/25 04/17/25 04/17/25 18:39 19:59 21:15 Temperature 100.0 F H 99.2 F Pulse Rate 130 H 120 H 113 H Respiratory 26 H 24 24 Rate Blood Pressure 130/80 118/76 122/100 O2 Sat by Pulse 98 95 96 Oximetry 04/17/25 22:00 Temperature Pulse Rate 109 H Respiratory 22 Rate Blood Pressure 118/89 O2 Sat by Pulse 96 Oximetry EKG Findings - EKG Comments: EKG Findings:: Sinus tachycardia, rate 136 bpm intervals within acceptable limits, borderline left axis deviation, no significant ST elevations or depressions, no arrhythmia Procedures - Sepsis Sepsis Focused Exam #1 Sepsis Focused Exam Date: 04/17/25 Sepsis Focused Exam Time: 20:00 Sepsis Focused Exam Complete: Yes Vital Signs & RN Notes Reviewed: Yes Medical Decision Making - Medical Decision Making Was pt. sent in by a medical professional or institution ([facility], [employer], urgent care, hospital, or detention...) When possible be specific @ -[facility] Did you speak to anyone other than the patient for history (EMS, parent, family, police, friend...)? What history was obtained from this source @ -Spoke with patient's sister, his decision-maker, at bedside, states patient is typically more alert, makes eye contact, attempts to talk though he is typically overall nonverbal Did you review nursing and triage notes (agree or disagree)? Why? @ -I reviewed nursing and triage notes Were old charts reviewed (outside hosp., previous admission, EMS record, old EKG, old radiological studies, urgent care reports/EKG's, detention records)? Report findings @ -Medical records reviewed-Reviewed prior chest x-ray from 02/12/2025, showed cardiomegaly with interstitial changes, concerning for mild CHF with pulmonary vascular congestion CTA chest from 02/11/2025 showed no PE Differential Diagnosis (chest pain, altered mental status, abdominal pain women, abdominal pain men, vaginal bleeding, weakness, fever, dyspnea, syncope, headache, dizziness, GI bleed, back pain, seizure, CVA, palpatations, mental health, musculoskeletal)? Differential Dyspnea: Coronary syndrome, arrhythmia, tamponade, asthma, COPD, pulmonary embolism, pneumonia, pneumothorax, pulmonary effusion, anaphylaxis, diabetic ketoacidosis, flailed chest, pulmonary contusion, diaphragmatic rupture, anemia, neuromuscular, this is not meant to be an all-inclusive list. EKG interpreted by me (3pts min.). @ -As above X-rays interpreted by me (1pt min.). Reviewed chest x-ray, I see no obvious consolidations CT interpreted by me (1pt min.). Reviewed CT brain I see no evidence of hemorrhage or mass effect Reviewed CT abdomen pelvis, I do not see ureterolithiasis, signs of perforation or obstruction U/S interpreted by me (1pt. min.). @ -None done What meds were considered but not given or refused? Why? @ -None Did you discuss the management of the patient with other professionals (maureen hewitt i.e. , PA, [employer], lab, RT, psych nurse, social and human services assistant, money counter, teacher, state highway police officer, manager rn case)? Give summary @ -No Was smoking cessation discussed for >3mins.? @ -No Was critical care preformed (if so, how long)? @ -Yes 35 minutes Were there social determinants of health that impacted care today? How? (Homelessness, low income, unemployed, alcoholism, drug addiction, transportation, low edu. Level, literacy, decrease access to med. care, fci, rehab)? @Quadriplegic Was there de-escalation of care discussed even if they declined (Discuss DNR or withdrawal of care, Hospice)? @ -No What co-morbidities impacted this encounter? (DM, HTN, Smoking, COPD, CAD, Cancer, CVA, ARF, Chemo, Hep., AIDS, mental health diagnosis, sleep apnea, morbid obesity)? @Quadriplegic Was patient admitted / discharged? Hospital course, mention meds given and route, prescriptions, significant lab abnormalities, going to OR and other pertinent info. @ -Admission- patient is a 64-year-old gentleman past medical hxquadriplegia, presenting today for shortness of breath. On assessment patient is ill-sabino earing, on arrival febrile temp 103.4, tachycardic, pulse ox between 91 to 93%. He does have coarse breath sounds however pulmonary exam is limited by patient's moaning throughout exam. He is unable to follow commands. He also has a sacral ulcer stage III-IV. Differential diagnose remains broad however considerations include pneumonia versus UTI versus wound as source of sepsis. Levaquin ordered. Sepsis workup intiated, CT brain will be obtaine due to AMS however suspect 2/2 fever. Labs significant for leukocytosis white was about 26.61 with left shift, hyponatremia sodium 146, mild lactic acidosis with lactic 2.1, troponin 0.047 which I suspect is secondary to demand ischemia, BNP 1230, urinalysis does appear infected with moderate blood, 1+ protein, large leukocyte esterase, grea ter than 182 red cells, 63 white cells 1 squamous cell, few bacteria. Due to hematuria will obtain CT abdomen pelvis without contrast to assess for signs of ureterolithiasis. CT of the pelvis showed no obstructive uropathy. Showed sacral ulcer without extension to bone. No abscess. Findings consistent with acute cystitis and possible aspiration pneumonia. Flagyl was added to Levaquin out of concern for aspiration pneumonia. On reassessment pt "acting much more like himself" per family, as fever defervesced. Patient admitted to Dr. Bundy. Undiagnosed new problem with uncertain prognosis? @ -No Drug Therapy requiring intensive monitoring for toxicity (Heparin, Nitro, Insulin, Cardizem)? @ -No Were any procedures done? @ -No Diagnosis/symptom? @Severe sepsis, secondary to UTI versus aspiration pneumonia Acute, or Chronic, or Acute on Chronic? @Acute Uncomplicated (without systemic symptoms) or Complicated (systemic symptoms)? @ -Complicated Side effects of treatment? @ -No Exacerbation, Progression, or Severe Exacerbation? @ -No yes - Lab Data Result diagrams: 04/17/25 17:49 04/17/25 17:49 Lab Results 04/17/25 04/17/25 04/17/25 Range/Units 17:49 17:49 17:49 WBC 26.61 H (4.50-10.00) 10*3/uL RBC 5.65 H (4.40-5.60) 10*6/uL Hgb 15.2 (13.0-17.0) g/dL Hct 48.4 (39.6-50.0) % MCV 85.7 (80.0-97.0) fL MCH 26.9 L (27.0-32.0) pg MCHC 31.4 L (32.0-37.0) g/dL Plt Count 356 (140-440) 10*3/uL MPV 11.1 (9.5-12.2) fL Immature Gran % (Auto) 0.6 % Neutrophils % 94.5 % Lymphocytes % 1.6 % Monocytes % 2.7 % Eosinophils % 0.3 % Basophils % 0.3 % Immature Gran # 0.16 H (0.00-0.04) 10*3/uL Neutrophils # 25.13 H (1.80-7.70) 10*3/uL Lymphocytes # 0.42 L (0.90-5.00) 10*3/uL Monocytes # 0.73 (0.20-1.00) 10*3/uL Eosinophils # 0.08 (0.04-0.35) 10*3/uL Basophils # 0.09 (0.00-0.10) 10*3/uL Manual Slide Review Performed PT 11.2 (10.0-12.5) sec INR 1.0 (<1.2) APTT 22.7 (22.0-30.0) sec Sodium 146 H (137-145) mmol/L Potassium 4.7 (3.5-5.1) mmol/L Chloride 109 H (98-107) mmol/L Carbon Dioxide 22 (22-30) mmol/L Anion Gap 15 mmol/L BUN 24 H (9-20) mg/dL Creatinine 0.78 (0.66-1.25) mg/dL Est GFR (CKD-EPI)AfAm >90 (>60 ml/min/1.73 sqM) Est GFR (CKD-EPI)NonAf >90 (>60 ml/min/1.73 sqM) Glucose 90 (74-99) mg/dL Lactic Ac Sepsis Rflx Plasma Lactic Acid [place] (0.7-2.0) mmol/L Calcium 9.1 (8.4-10.2) mg/dL Total Bilirubin 0.8 (0.2-1.3) mg/dL AST 25 (17-59) U/L ALT 26 (4-49) U/L Alkaline Phosphatase 113 (38-126) U/L Troponin I (0.000-0.034) ng/mL NT-Pro-B Natriuret Pep 1230 pg/mL Total Protein 7.8 (6.3-8.2) g/dL Albumin 4.2 (3.5-5.0) g/dL Urine Color Urine Appearance (Clear) Urine pH (5.0-8.0) Ur Specific [place] (1.001-1.035) Urine Protein (Negative) Urine Glucose (UA) (Negative) Urine Ketones (Negative) Urine Blood (Negative) Urine Nitrite (Negative) Urine Bilirubin (Negative) Urine Urobilinogen (<2.0) mg/dL Ur Leukocyte Esterase (Negative) Urine RBC (0-5) /hpf Urine WBC (0-5) /hpf Ur Squamous Epith Cells (0-4) /hpf Triple Phos Crystals (None) /hpf Urine Bacteria (None) /hpf Urine Mucus (None) /hpf Influenza Type A (PCR) (Not Detectd) Influenza Type B (PCR) (Not Detectd) RSV (PCR) (Not Detectd) SARS-CoV-2 (PCR) (Not Detectd) 04/17/25 04/17/25 04/17/25 Range/Units 17:49 17:49 17:59 WBC (4.50-10.00) 10*3/uL RBC (4.40-5.60) 10*6/uL Hgb (13.0-17.0) g/dL Hct (39.6-50.0) % MCV (80.0-97.0) fL MCH (27.0-32.0) pg MCHC (32.0-37.0) g/dL Plt Count (140-440) 10*3/uL MPV (9.5-12.2) fL Immature Gran % (Auto) % Neutrophils % % Lymphocytes % % Monocytes % % Eosinophils % % Basophils % % Immature Gran # (0.00-0.04) 10*3/uL Neutrophils # (1.80-7.70) 10*3/uL Lymphocytes # (0.90-5.00) 10*3/uL Monocytes # (0.20-1.00) 10*3/uL Eosinophils # (0.04-0.35) 10*3/uL Basophils # (0.00-0.10) 10*3/uL Manual Slide Review PT (10.0-12.5) sec INR (<1.2) APTT (22.0-30.0) sec Sodium (137-145) mmol/L Potassium (3.5-5.1) mmol/L Chloride (98-107) mmol/L Carbon Dioxide (22-30) mmol/L Anion Gap mmol/L BUN (9-20) mg/dL Creatinine (0.66-1.25) mg/dL Est GFR (CKD-EPI)AfAm (>60 ml/min/1.73 sqM) Est GFR (CKD-EPI)NonAf (>60 ml/min/1.73 sqM) Glucose (74-99) mg/dL Lactic Ac Sepsis Rflx Plasma Lactic Acid [place] 2.1 H* (0.7-2.0) mmol/L Calcium (8.4-10.2) mg/dL Total Bilirubin (0.2-1.3) mg/dL AST (17-59) U/L ALT (4-49) U/L Alkaline Phosphatase (38-126) U/L Troponin I 0.047 H* (0.000-0.034) ng/mL NT-Pro-B Natriuret Pep pg/mL Total Protein (6.3-8.2) g/dL Albumin (3.5-5.0) g/dL Urine Color Yellow Urine Appearance Turbid (Clear) Urine pH 8.0 (5.0-8.0) Ur Specific [place] 1.016 (1.001-1.035) Urine Protein 1+ H (Negative) Urine Glucose (UA) Negative (Negative) Urine Ketones Negative (Negative) Urine Blood Moderate H (Negative) Urine Nitrite Negative (Negative) Urine Bilirubin Negative (Negative) Urine Urobilinogen <2.0 (<2.0) mg/dL Ur Leukocyte Esterase Large H (Negative) Urine RBC >182 H (0-5) /hpf Urine WBC 63 H (0-5) /hpf Ur Squamous Epith Cells 1 (0-4) /hpf Triple Phos Crystals Many H (None) /hpf Urine Bacteria Few H (None) /hpf Urine Mucus Rare H (None) /hpf Influenza Type A (PCR) (Not Detectd) Influenza Type B (PCR) (Not Detectd) RSV (PCR) (Not Detectd) SARS-CoV-2 (PCR) (Not Detectd) 04/17/25 04/17/25 Range/Units 18:28 19:30 WBC (4.50-10.00) 10*3/uL RBC (4.40-5.60) 10*6/uL Hgb (13.0-17.0) g/dL Hct (39.6-50.0) % MCV (80.0-97.0) fL MCH (27.0-32.0) pg MCHC (32.0-37.0) g/dL Plt Count (140-440) 10*3/uL MPV (9.5-12.2) fL Immature Gran % (Auto) % Neutrophils % % Lymphocytes % % Monocytes % % Eosinophils % % Basophils % % Immature Gran # (0.00-0.04) 10*3/uL Neutrophils # (1.80-7.70) 10*3/uL Lymphocytes # (0.90-5.00) 10*3/uL Monocytes # (0.20-1.00) 10*3/uL Eosinophils # (0.04-0.35) 10*3/uL Basophils # (0.00-0.10) 10*3/uL Manual Slide Review PT (10.0-12.5) sec INR (<1.2) APTT (22.0-30.0) sec Sodium (137-145) mmol/L Potassium (3.5-5.1) mmol/L Chloride (98-107) mmol/L Carbon Dioxide (22-30) mmol/L Anion Gap mmol/L BUN (9-20) mg/dL Creatinine (0.66-1.25) mg/dL Est GFR (CKD-EPI)AfAm (>60 ml/min/1.73 sqM) Est GFR (CKD-EPI)NonAf (>60 ml/min/1.73 sqM) Glucose (74-99) mg/dL Lactic Ac Sepsis Rflx Y Plasma Lactic Acid [place] (0.7-2.0) mmol/L Calcium (8.4-10.2) mg/dL Total Bilirubin (0.2-1.3) mg/dL AST (17-59) U/L ALT (4-49) U/L Alkaline Phosphatase (38-126) U/L Troponin I (0.000-0.034) ng/mL NT-Pro-B Natriuret Pep pg/mL Total Protein (6.3-8.2) g/dL Albumin (3.5-5.0) g/dL Urine Color Urine Appearance (Clear) Urine pH (5.0-8.0) Ur Specific [place] (1.001-1.035) Urine Protein (Negative) Urine Glucose (UA) (Negative) Urine Ketones (Negative) Urine Blood (Negative) Urine Nitrite (Negative) Urine Bilirubin (Negative) Urine Urobilinogen (<2.0) mg/dL Ur Leukocyte Esterase (Negative) Urine RBC (0-5) /hpf Urine WBC (0-5) /hpf Ur Squamous Epith Cells (0-4) /hpf Triple Phos Crystals (None) /hpf Urine Bacteria (None) /hpf Urine Mucus (None) /hpf Influenza Type A (PCR) Not Detected (Not Detectd) Influenza Type B (PCR) Not Detected (Not Detectd) RSV (PCR) Not Detected (Not Detectd) SARS-CoV-2 (PCR) Not Detected (Not Detectd) Disposition Clinical Impression: Severe sepsis, Urinary tract infection, Acute encephalopathy Disposition: ADMITTED IP TO THIS HOSP Condition: Stable
[2025-04-17] MEDS: ACETAMINOPHEN IV (For NPO) 1,000 MG in EMPTY BAG 1 BAG IVPB STA (18:50)
--- NOTE | 2025-04-17 19:43 | CT ---
EXAMINATION TYPE: CT brain wo con DATE OF EXAM: 04/17/2025 7:36 PM COMPARISON: 02/11/2025. CLINICAL INDICATION: Male, 64 years old with history of AMS, fever, AMS/FEVER TECHNIQUE: Brain: Axial CT images of the brain were obtained with coronal and sagittal reformats created and rev iewed. Contrast used: None. Oral contrast used: None. CT DLP: 1140.8 mGycm, Automated exposure control for dose reduction was used. FINDINGS: Brain: Extra-axial spaces: No abnormal extra-axial fluid collections. Ventricular system: Dilatation in proportion to cerebral atrophy. Cerebral parenchyma: Cerebral atrophy. No acute intraparenchymal hemorrhage or mass effect. The suarez -white junction is well differentiated. Scattered hypoattenuating areas are seen within the white mat ter. Cerebellum: Unremarkable. Mass effect: No evidence of midline shift. Intracranial vasculature: Atherosclerotic calcifications of the intracranial vessels. Soft tissues: Normal. Calvarium/osseous structures: No depressed skull fracture. Paranasal sinuses and mastoid air cells: Mild scattered paranasal sinus disease. Visualized orbits: Bilateral aphakia IMPRESSION: 1. No acute intracranial process. 2. Nonspecific white matter changes, likely secondary to chronic small vessel ischemic disease. [facility], , 04/17/2025 7:41 PM
--- NOTE | 2025-04-17 19:47 | CT ---
EXAMINATION TYPE: CT abdomen pelvis wo con DATE OF EXAM: 04/17/2025 7:36 PM COMPARISON: CT abdomen pelvis most recent from 02/11/2025 CLINICAL INDICATION: Male, 64 years old with history of hematuria, UTI, fever, sacral ulcer; HEMATURI A, UTI, FEVER, SACRAL ULCER TECHNIQUE: Axial CT abdomen pelvis wo con;Sagittal and coronal reformats were created on a separate workstation. Contrast used: mL of , (none if empty) Oral contrast used: without Oral Contrast (none if empty) CT DLP: 2068 mGycm, Automated exposure control for dose reduction was used. FINDINGS: LOWER CHEST: Bilateral lower lobe airspace opacities. ABDOMEN LIVER: Unremarkable GALLBLADDER AND BILE DUCTS: Unremarkable. PANCREAS: Unremarkable. SPLEEN: Unremarkable. ADRENAL GLANDS: Unremarkable. KIDNEYS AND URETERS: No evidence of hydronephrosis or obstructing renal calculus. The ureters are unr emarkable. Nonobstructing left 3 mm calculus. PELVIS BLADDER: There is gas in the lumen of the urinary bladder. REPRODUCTIVE: Unremarkable. ABDOMEN & PELVIS STOMACH AND BOWEL: PEG tube with balloon in the stomach lumen. The duodenum is unremarkable. No evide nce of bowel obstruction. Appendix is normal. Mild circumferential wall thickening of the rectum. PERITONEUM/RETROPERITONEUM: No evidence of pneumoperitoneum or free fluid. VASCULATURE: No evidence of aortic aneurysm. MUSCULOSKELETAL: No acute osseous abnormalities. Moderate disc degeneration changes are present throu ghout the thoracolumbar spine. Chronic deformities of the left proximal femur with prior fracture fem oral neck with osseous fusion. The right femur is intact with severe degeneration changes. LYMPH NODES: No gross evidence for lymphadenopathy. SOFT TISSUE/ABDOMINAL WALL: Soft tissue fat stranding over the sacrum without evidence for osseous er osion. No organizing fluid collection. IMPRESSION: 1. Bilateral lower lobe airspace opacities correlate for pneumonia correlate for aspiration. 2. Urinary bladder gas correlate for cystitis with urinalysis. 3. Mild circumferential wall thickening of the rectum correlate for proctitis. 4. PEG tube in satisfactory position. 5. The appendix is normal. No obstructive uropathy. 6. Chronic deformity to the left proximal femur with fracture with incomplete osseous fusion. 7. Nonobstructing left renal calculus. 8. Vertebral decubitus ulcer without evidence for organizing fluid collection or erosion. [facility], , 04/17/2025 7:45 PM
[2025-04-17] MEDS: IBUPROFEN IV 600 MG in SODIUM CHLORIDE 0.9% 250 ML IV ONE (19:57)
[2025-04-17 20:18] LABS: RSV Not Detected (Not Detectd)
[2025-04-17] MEDS: metroNIDAZOLE-NS PMX 500 MG in SALINE 1 100ML.BAG IVPB STA (20:33)
[2025-04-17] MEDS ORDERED: NALOXONE 0.4 MG/ML 1 ML VIAL IV PRN (20:51)
[2025-04-17] MEDS ORDERED: ONDANSETRON 4 MG/2 ML VIAL IVP PRN (20:51)
[2025-04-17] MEDS ORDERED: IPRATROPIUM-ALBUTEROL 3 ML NEB INHALATION PRN (23:39)
[2025-04-18] MEDS: SODIUM CHLORIDE 0.9% 1,000 ML IV SCH (01:16)
[2025-04-18] MEDS: SENNOSIDES 8.6 MG TAB PEG/G-TUBE SCH (01:18)
--- NOTE | 2025-04-18 01:36 | CT ---
EXAM: CT Chest Without Intravenous Contrast CLINICAL HISTORY: ITS.REASON CT Reason: cap TECHNIQUE: Axial computed tomography images of the chest without intravenous contrast. CTDI is 17.8 mGy and DLP is 654.5 mGy-cm. This CT exam was performed using one or more of the following dose reduction techniques: automated exposure control, adjustment of the mA and/or kV according to patient size, and/or use of iterative reconstruction technique. COMPARISON: No relevant prior studies available. FINDINGS: Lungs: Airspace consolidations at the lung bases, consistent with multilobar pneumonia. Pleural space: Unremarkable. No pneumothorax. No significant effusion. Heart: Unremarkable. No cardiomegaly. No significant pericardial effusion. No significant coronary artery calcifications. Bones/joints: Degenerative changes of the spine. No acute fracture. No dislocation. Soft tissues: Unremarkable. Vasculature: Unremarkable. No thoracic aortic aneurysm. Lymph nodes: Unremarkable. No enlarged lymph nodes. IMPRESSION: Airspace consolidations at the lung bases, consistent with multilobar pneumonia.
[2025-04-18] MEDS: LACOSAMIDE 150 MG TABLET PEG/G-TUBE SCH (01:45)
--- NOTE | 2025-04-18 01:45 | HP ---
HISTORY AND PHYSICAL HISTORY OF PRESENT ILLNESS: A 64-year-old white male with shortness of breath. He is admitted for aspiration pneumonia, severe leukocytosis with sacral ulcer. MEDICATIONS: Home medicines; aspirin, Tegretol, lactulose, scopolamine, Pepcid, DuoNebs, oxybutynin, baclofen, amantadine, losartan, omeprazole, budesonide, Vimpat, Lopressor, ALLERGIES: Meropenem, ceftazidime, and tazobactam. REVIEW OF SYSTEMS: Fourteen-point review of systems otherwise negative. PAST MEDICAL HISTORY: DVT, GERD, hypertension, musculoskeletal disorder, neurologic disorder, pneumonia, paranoia, seizure, UTI, sepsis, respiratory failure, cognitive impairment, PEG tube, contractures, ESBL and MRSA, and history of depression. PAST SURGICAL HISTORY: Tonsillectomy, gastrectomy, PEG tube FAMILY HISTORY: Father with myocardial infarction. Mother with hypertension, dyslipidemia PHYSICAL EXAMINATION: VITAL SIGNS: Stable. Afebrile. Pulse is 128 to 135, and 20 to 27 respiratory rate, and blood pressure 130s to 140s over 60s to 90s. CARDIOVASCULAR: S1, S2. LUNGS: Transmitted upper airway sounds. GI: Soft. NEUROLOGIC: Alert and oriented x3. HEMATOLOGY: Negative Homans. PSYCHIATRIC: Fair mood and affect. LABORATORY DATA: sodium 146, BUN is 44, creatinine 0.78. Lactic acid 16.1, elevated. Give fluids overnight. Monitor current treatment. Severe sepsis and encephalopathy. Prognosis guarded. Ambulate . MMODL / IJN: [id number] /
[2025-04-18 07:17] LABS: Basophils # (A) 0.04 10*3/uL (0.00-0.10); Basophils % (A) 0.2 %; Eosinophils # (A) 0.29 10*3/uL (0.04-0.35); Eosinophils % (A) 1.4 %; HCT 44.3 % (39.6-50.0); HGB 13.4 g/dL (13.0-17.0); Lymphocytes # (A) 1.31 10*3/uL (0.90-5.00); Lymphocytes % (A) 6.2 %; MCH 26.5 pg (27.0-32.0); MCHC 30.2 g/dL (32.0-37.0); MCV 87.5 fL (80.0-97.0); Monocytes # (A) 1.45 10*3/uL (0.20-1.00); Monocytes % (A) 6.8 %; Neutrophils # (A) 17.97 10*3/uL (1.80-7.70); Neutrophils % (A) 84.9 %; Platelet Count 312 10*3/uL (140-440); RBC 5.06 10*6/uL (4.40-5.60); RDW 15.7 % (11.5-14.5); WBC 21.17 10*3/uL (4.50-10.00)
[2025-04-18 07:42] LABS: ALT 21 U/L (4-49); AST 24 U/L (17-59); African American GFR (CKD) >90 (>60 ml/min/1.73 sqM); Albumin 3.2 g/dL (3.5-5.0); Alkaline Phosphatase 86 U/L (38-126); Anion Gap 12 mmol/L; Blood Urea Nitrogen 21 mg/dL (9-20); Calcium 8.6 mg/dL (8.4-10.2); Carbon Dioxide 22 mmol/L (22-30); Chloride 110 mmol/L (98-107); Glucose 85 mg/dL (74-99); Non-African American GFR(CKD) >90 (>60 ml/min/1.73 sqM); Potassium 4.4 mmol/L (3.5-5.1); Sodium 144 mmol/L (137-145); Total Protein 6.3 g/dL (6.3-8.2)
[2025-04-18] MEDS: BUDESONIDE 1 MG/2 ML NEBU INHALATION SCH (07:59)
[2025-04-18] MEDS: IPRATROPIUM-ALBUTEROL 3 ML NEB INHALATION SCH (08:00)
[2025-04-18] MEDS ORDERED: NON FORMULARY DRUG (Omeprazole [Omeprazole] 20 MG Tablet.Dr) PEG/G-TUBE SCH (09:00)
[2025-04-18] MEDS ORDERED: [UNRECOGNIZED DRUG - OTHER] PEG/G-TUBE SCH (09:00)
[2025-04-18] MEDS: LOSARTAN 25 MG TAB PEG/G-TUBE SCH (09:57)
[2025-04-18] MEDS: BACLOFEN 10 MG TAB PEG/G-TUBE SCH (09:57)
[2025-04-18] MEDS: carBAMazepine 200 MG TAB PEG/G-TUBE SCH (09:57)
[2025-04-18] MEDS: ASPIRIN 81 MG PEG/G-TUBE SCH (09:57)
[2025-04-18] MEDS: ENOXAPARIN 40 MG/0.4 ML SYRINGE SQ SCH (09:58)
[2025-04-18] MEDS: LACTULOSE 20 GM/30 ML CUP PEG/G-TUBE SCH (09:58)
[2025-04-18] MEDS: FAMOTIDINE 20 MG TAB PEG/G-TUBE SCH (09:58)
[2025-04-18] MEDS: guaiFENesin SYRUP 100MG/5ML 200 MG/10 ML CUP PEG/G-TUBE SCH (09:58)
[2025-04-18] MEDS: PANTOPRAZOLE 40 MG/10 ML VIAL IV SCH (09:58)
[2025-04-18] MEDS: METOPROLOL TARTRATE 25 MG TAB PEG/G-TUBE SCH (10:05)
[2025-04-18] MEDS: METOPROLOL TARTRATE 12.5 MG TAB PEG/G-TUBE SCH (10:19)
[2025-04-18 11:15] LABS: Glucose,Whole Blood 95 mg/dL (70-110)
--- NOTE | 2025-04-18 11:35 | P.CRDCN ---
History of Present Illness History of present illness: HISTORY OF PRESENT ILLNESS: This is a 64-year-old male with a past medical history significant for multiple sclerosis, UTI, cognitive impairment, PEG tube, seizures, decubitus ulcer, DVT, depression, and ESBL. Patient does not follow with a sighter. We have been asked to see the patient in consultation for elevated troponins. Patient examined at the bedside. Patient is nonverbal at baseline. There is no family present. Patient is a long-term resident of [facility]. He is admitted to the hospital secondary to sepsis. Patient found to have a white count of 26 upon admission. Additionally he was febrile with a rectal temperature of 103.4. Telemetry reveals sinus tachycardia. DIAGNOSTICS: - EKG reveals sinus tachycardia with no signs of acute ischemia. - Chest xray negative for acute process. - Laboratory data: Troponin 0.047. 0.081. 0.075. - Current home cardiac medications include Toprol tartrate 12.5 mg twice a day, losartan 25 mg daily, aspirin 81 mg daily. - Most recent echocardiogram obtained in November 2024 revealed ejection fraction 35 to 40%, moderately reduced global ventricular systolic function, mild MR, trace AR, mild TR - Cardiac catheterization history: Unknown REVIEW OF SYSTEMS: At the time of my exam: Unable to obtain through review of systems secondary to altered mental status PHYSICAL EXAM: VITAL SIGNS: Reviewed. GENERAL: Well-developed in no acute distress. HEENT: Head is normocephalic. Pupils are equal, round. Sclerae anicteric. Mucous membranes of the mouth are moist. Neck supple. No JVD or thyromegaly LUNGS: Respirations even and unlabored. Lungs essentially clear to auscultation bilaterally. HEART: Tachycardic. Regular rate and rhythm. S1 and S2 heard. ABDOMEN: Soft. Nondistended. Nontender. EXTREMITIES: Contractures of all 4 extremities noted. No clubbing or cyanosis. Peripheral pulses intact. No lower extremity edema NEUROLOGIC: Awake and alert. Nonverbal at baseline ASSESSMENT: Sepsis Urinary tract infection Elevated troponins, type II MO secondary to sepsis no evidence of ACS Cardiomyopathy, 35 to 40%, ischemic versus nonischemic History of multiple sclerosis History of cognitive impairment History of PEG tube insertion History of seizures History of decubitus ulcer History of DVT History of depression History of ESBL Nonverbal at baseline PLAN: An acute coronary event has been ruled out No need to repeat echocardiogram as this was performed in November 2024 Increase metoprolol tartrate to 25 mg twice a day Treatment of sepsis per infectious disease and primary medicine Continue with conservative management at this time Further recommendations pending patient course Nurse practitioner note has been reviewed by physician. Signing provider agrees with the documented findings, assessment, and plan of care documented by PETROPHYSICAL ENGINEER as a scribe. Past Medical History Past Medical History: Deep Vein Thrombosis (DVT), GERD/Reflux, Hypertension, Musculoskeletal Disorder, Neurologic Disorder, Pneumonia, Seizure Disorder, Skin Disorder Additional Past Medical History / Comment(s): Pt diagnosed with MS at the age of 39 yrs, seizure/pneumonia/UTI with sepsis/respirtory failure/vented, cognitive impairment, sister states when he is feeling well he could speak a few words/nod head appropriately/give thumbs up/roll eyes but when ill is nonverbal, pt has dysphagia/NPO with peg tube, contractures, last seizure 07/2020, trigeminal neuralgia, dysarthria/anarthria/neurogenic bladder with IDC-UTIs/sepsis, multiple pneumonias, recent seizure-last one 07/03/20, incontinent of stool, pt has had decubitus ulcer coccyx-sister unsure of skin condition at this time, past anemia r/t heparin/epistaxiis which involved nasal packing/transfusions, DVT bilateral arms, hypoxia, oxygen at 2L/NC, L femoral head fracture History of Any Multi-Drug Resistant Organisms: ESBL, MRSA Date of last positivie culture/infection: 01/02/25-ESBL; 03/09/21-MRSA MDRO Source:: ESBL-urine; MRSA-abdomen/pegsite Past Surgical History: Tonsillectomy Additional Past Surgical History / Comment(s): Gastrostomy, peg tube, I&D coccyx decubitius, bronchoscopy, bilateral lasik eye surgery. Past Anesthesia/Blood Transfusion Reactions: No Reported Reaction Additional Past Anesthesia/Blood Transfusion Reaction / Comment(s): Pt has received blood in past without reaction. Past Psychological History: Depression Additional Psychological History / Comment(s): Pt resides at [facility]. He normally is in bed/amita lift to wheelchair. Has peg/IDC Smoking Status: Never smoker Past Alcohol Use History: None Reported Past Drug Use History: None Reported - Past Family History Father Family Medical History: Myocardial Infarction (MO) Mother Family Medical History: Hypertension, Myocardial Infarction (MO) Additional Family Medical History / Comment(s): Mother of a MO at the age of 73 yrs. Medications and Allergies Home Medications Medication Instructions Recorded Confirmed Type Aspirin 81 mg PEG/G-TUBE DAILY 11/27/20 04/17/25 History carBAMazepine [carBAMazepine Oral 100 mg PEG/G-TUBE TID 07/02/21 04/17/25 History Susp] Lactulose 20 gm PEG/G-TUBE TID 01/03/22 04/17/25 History Scopolamine [Scopolamine 1 MG/72 1 patch TRANSDERM Q72H 01/03/22 04/17/25 History HR patch] oxyBUTYnin chloride 5 mg PEG/G-TUBE DAILY 12/19/22 04/17/25 History Famotidine [Pepcid] 20 mg PEG/G-TUBE DAILY 07/14/23 04/17/25 History Ipratropium-Albuterol Nebulize 3 ml INHALATION RT-TID 11/18/23 04/17/25 History [Duoneb 0.5 mg-3 mg/3 ml Soln] Baclofen 5 mg PEG/G-TUBE TID 07/25/24 04/17/25 History amantadine HCL [Amantadine] 100 mg PEG/G-TUBE DAILY 07/25/24 04/17/25 History bisacodyL [Dulcolax] 10 mg RECTAL DAILY PRN 07/25/24 04/17/25 History Losartan [Cozaar] 25 mg PEG/G-TUBE DAILY 02/11/25 04/17/25 History Omeprazole 20 mg PEG/G-TUBE DAILY 02/11/25 04/17/25 History Uti-Stat Oral 30 ml PEG/G-TUBE DAILY 02/11/25 04/17/25 History Liquid(Cranberry-Vitamin C-Inulin) Budesonide [Pulmicort] 1 mg INHALATION RT-Q12H 04/17/25 04/17/25 History Ipratropium-Albuterol Nebulize 3 ml INHALATION RT-Q4H PRN 04/17/25 04/17/25 History [Duoneb 0.5 mg-3 mg/3 ml Soln] Lacosamide [Vimpat Oral Soln] 150 mg PEG/G-TUBE Q12H 04/17/25 04/17/25 History Metoprolol Tartrate [Lopressor] 12.5 mg PEG/G-TUBE BID 04/17/25 04/17/25 History Sennosides [Senokot] 8.6 mg PEG/G-TUBE Q12H 04/17/25 04/17/25 History guaiFENesin SYRUP 100MG/5ML 200 mg PEG/G-TUBE BID 04/17/25 04/17/25 History [Robitussin] Allergies Allergy/AdvReac Type Severity Reaction Status Date / Time meropenem [From Merrem] Allergy Rash/Hives Verified 04/17/25 19:02 ceftolozane [From Zerbaxa] AdvReac Rapid Verified 04/17/25 19:02 Heart Rate tazobactam [From Zerbaxa] AdvReac Rapid Verified 04/17/25 19:02 Heart Rate Physical Exam Vitals: Vital Signs Temp Pulse Pulse Resp BP BP Pulse Ox 04/18/25 08:55 98.7 F 99 25 H 123/67 96 04/18/25 08:14 103 H 04/18/25 08:04 96 04/18/25 08:02 82 16 172/109 96 04/18/25 08:01 95 04/18/25 06:00 99.3 F 101 H 22 138/84 95 04/18/25 04:00 99.5 F 102 H 22 150/102 96 04/18/25 02:00 99.2 F 98 22 128/95 95 04/17/25 22:00 109 H 22 118/89 96 04/17/25 21:15 99.2 F 113 H 24 122/100 96 04/17/25 19:59 100.0 F H 120 H 24 118/76 95 04/17/25 18:39 130 H 26 H 130/80 98 04/17/25 18:35 27 H 04/17/25 17:39 128 H 20 134/80 96 04/17/25 17:33 103.4 F H 135 H 27 H 143/69 96 FiO2 04/18/25 08:55 04/18/25 08:14 04/18/25 08:04 21 04/18/25 08:02 04/18/25 08:01 04/18/25 06:00 04/18/25 04:00 04/18/25 02:00 04/17/25 22:00 04/17/25 21:15 04/17/25 19:59 04/17/25 18:39 04/17/25 18:35 04/17/25 17:39 04/17/25 17:33 Intake and Output 04/17/25 04/18/25 04/18/25 22:59 06:59 14:59 Output Total 900 Balance -900 Output: Urine 900 Other: Weight 77.111 kg 77.111 kg Results 04/18/25 06:41 04/18/25 06:41 Cardiac Enzymes 04/17/25 04/17/25 04/17/25 Range/Units 17:49 17:49 23:09 AST 25 (17-59) U/L Troponin I 0.047 H* 0.081 H* (0.000-0.034) ng/mL 04/18/25 04/18/25 Range/Units 02:20 06:41 AST 24 (17-59) U/L Troponin I 0.075 H* (0.000-0.034) ng/mL Coagulation 04/17/25 Range/Units 17:49 PT 11.2 (10.0-12.5) sec APTT 22.7 (22.0-30.0) sec CBC 04/17/25 04/18/25 Range/Units 17:49 06:41 WBC 26.61 H 21.17 H (4.50-10.00) 10*3/uL RBC 5.65 H 5.06 (4.40-5.60) 10*6/uL Hgb 15.2 13.4 (13.0-17.0) g/dL Hct 48.4 44.3 (39.6-50.0) % Plt Count 356 312 (140-440) 10*3/uL Comprehensive Metabolic Panel 04/17/25 04/18/25 Range/Units 17:49 06:41 Sodium 146 H 144 (137-145) mmol/L Potassium 4.7 4.4 (3.5-5.1) mmol/L Chloride 109 H 110 H (98-107) mmol/L Carbon Dioxide 22 22 (22-30) mmol/L BUN 24 H 21 H (9-20) mg/dL Creatinine 0.78 0.75 (0.66-1.25) mg/dL Glucose 90 85 (74-99) mg/dL Calcium 9.1 8.6 (8.4-10.2) mg/dL AST 25 24 (17-59) U/L ALT 26 21 (4-49) U/L Alkaline Phosphatase 113 86 (38-126) U/L Total Protein 7.8 6.3 (6.3-8.2) g/dL Albumin 4.2 3.2 L (3.5-5.0) g/dL Current Medications Generic Name Dose Route Start Last Admin Trade Name Freq PRN Reason Stop Dose Admin Acetaminophen 650 mg 04/17/25 20:51 Acetaminophen Tab 325 Mg Tab PEG/G-TUBE Q6HR PRN Mild Pain or Fever > 100.5 Albuterol/Ipratropium 3 ml 04/17/25 23:39 Ipratropium-Albuterol 3 Ml Neb INHALATION RT-Q4H PRN Shortness Of Breath Or Wheezing Albuterol/Ipratropium 3 ml 04/18/25 08:00 04/18/25 08:00 Ipratropium-Albuterol 3 Ml Neb INHALATION 3 ml RT-TID LUPE Administration Amantadine HCl 100 mg 04/18/25 09:00 04/18/25 10:05 Amantadine Hcl 100 Mg/10 Ml Cup PEG/G-TUBE 100 mg DAILY LUPE Administration Aspirin 81 mg 04/18/25 09:00 04/18/25 09:57 Aspirin 81 Mg PEG/G-TUBE 81 mg DAILY LUPE Administration Baclofen 5 mg 04/18/25 09:00 04/18/25 09:57 Baclofen 10 Mg Tab PEG/G-TUBE 5 mg TID LUPE Administration Bisacodyl 10 mg 04/17/25 23:39 Bisacodyl 10 Mg Supp RECTAL DAILY PRN Constipation Budesonide 1 mg 04/18/25 08:00 04/18/25 07:59 Budesonide 1 Mg/2 Ml Nebu INHALATION 1 mg RT-Q12H LUPE Administration Carbamazepine 100 mg 04/18/25 09:00 04/18/25 09:57 Carbamazepine 200 Mg Tab PEG/G-TUBE 100 mg TID LUPE Administration Enoxaparin Sodium 40 mg 04/18/25 09:00 04/18/25 09:58 Enoxaparin 40 Mg/0.4 Ml Syringe SQ 40 mg DAILY LUPE Administration Famotidine 20 mg 04/18/25 09:00 04/18/25 09:58 Famotidine 20 Mg Tab PEG/G-TUBE 20 mg DAILY LUPE Administration Guaifenesin 200 mg 04/18/25 09:00 04/18/25 09:58 Guaifenesin Syrup 100mg/5ml 200 Mg/10 Ml Cup PEG/G-TUBE 200 mg BID LUPE Administration Hydromorphone HCl 0.5 mg 04/17/25 20:51 Hydromorphone 0.5 Mg/0.5 Ml Syringe IVP Q3HR PRN Moderate Pain (Scale 4 to 6) Sodium Chloride 1,000 mls @ 75 mls/hr 04/17/25 23:45 04/18/25 01:16 Saline 0.9% IV 75 mls/hr .[id number] LUPE Administration Lacosamide 150 mg 04/18/25 01:00 04/18/25 01:45 Lacosamide 150 Mg Tablet PEG/G-TUBE 150 mg Q12H LUPE Administration Lactulose 20 gm 04/18/25 09:00 04/18/25 09:58 Lactulose 20 Gm/30 Ml Cup PEG/G-TUBE 20 gm TID LUPE Administration Losartan Potassium 25 mg 04/18/25 09:00 04/18/25 09:57 Losartan 25 Mg Tab PEG/G-TUBE 25 mg DAILY LUPE Administration Metoprolol Tartrate 25 mg 04/18/25 09:15 04/18/25 10:05 Metoprolol Tartrate 25 Mg Tab PEG/G-TUBE 25 mg BID LUPE Administration Morphine Sulfate 4 mg 04/17/25 20:51 Morphine Sulfate 4 Mg/Ml Syringe IV Q4HR PRN Severe Pain (Scale 7 to 10) Naloxone HCl 0.2 mg 04/17/25 20:51 Naloxone 0.4 Mg/Ml 1 Ml Vial IV Q2M PRN Opioid Reversal Ondansetron HCl 4 mg 04/17/25 20:51 Ondansetron 4 Mg/2 Ml Vial IVP Q8HR PRN Nausea And Vomiting Oxybutynin Chloride 5 mg 04/18/25 09:00 04/18/25 09:57 Oxybutynin Chloride 5 Mg Tab PEG/G-TUBE 5 mg DAILY LUPE Administration Pantoprazole Sodium 40 mg 04/18/25 09:00 04/18/25 09:58 Pantoprazole 40 Mg/10 Ml Vial IV 40 mg DAILY LUPE Administration Scopolamine 1 patch 04/19/25 09:00 Scopolamine 1 Mg/72 Hr Patch TRANSDERM Q72H LUPE Senna 8.6 mg 04/18/25 01:00 04/18/25 01:18 Sennosides 8.6 Mg Tab PEG/G-TUBE 8.6 mg Q12H LUPE Administration Intake and Output 04/17/25 04/18/25 04/18/25 22:59 06:59 14:59 Output Total 900 Balance -900 Output: Urine 900 Other: Weight 77.111 kg 77.111 kg Patient Weight 04/19/25 06:59 Weight 77.111 kg 04/18/25 06:41 04/18/25 06:41
[2025-04-18] MEDS: ERTAPENEM 1 GM in SODIUM CHLORIDE 0.9% 50 ML IVPB SCH (15:27)
[2025-04-18] MEDS: ACETAMINOPHEN TAB 325 MG TAB PEG/G-TUBE PRN (16:28)
--- NOTE | 2025-04-18 18:21 | P.CNPUL ---
History of Present Illness Consult date: 04/18/25 History of present illness: This is a 64-year-old male patient with known history of multiple sclerosis. The patient is severely debilitated neurologically and he has been essentially bedridden. He is nonverbal. He is paraplegic. He has had previous episodes of urine tract infection, recurrent including various infections with gram-negative bacteria and Enterococcus. The patient has a chronically indwelling Stein catheter. The patient also has a PEG tube for enteral feeding and nutritional support. The patient is known to have advanced multiple sclerosis in addition to hypertension, previous history of DVTs, previous history of pneumonias and recurrent urine tract infection and seizure disorder. I have treated this patient back in January 2025 for a urinary tract infection and sepsis. At that time, the patient was also seen by urology and consideration was given for a suprapubic catheter insertion and this was not performed as the patient's body habitus was not favorable to have the catheter inserted. Based on that, the Stein catheter was capped. The patient presented to the emergency department on 04/17/2025 for increased shortness of breath. The patient is unable to provide any history and most information obtained from the medical records and family members. The patient apparently had some increased labored breathing and noisy breathing earlier this week and he became more drowsy compared to his baseline. He was also noted to have fever. Based on that, further workup was done. The patient's white cell count was 26 with a hemoglobin of 15.2 and a platelet count of 356. Sodium level was at 146, BUN was 24 with a creatinine 0.7. Troponins were 0.08 and 0.00 respectively x 2 and a proBNP level was 1230. Serum bicarb was at 22 with a BUN of 24 and creatinine of 0.7. UA was abnormal consistent with multiple white cells and many crystals and few bacteria. Culture still pending for now. Meanwhile, a chest x-ray done at the time of admission showed no acute cardiopulmonary process. The patient was given CAT scan of the chest abdomen and pelvis. CAT scan of the chest showed lower lobe vague pulmonary infiltrates. No mediastinal adenopathy. No pleural effusion. CAT scan of the abdomen and pelvis done on 04/17/2025 showed lower lobe airspace opacities. The patient had urinary bladder gas, mild circumferential wall thickening of the rectum, PEG tube in place, normal appendix, no obstructive uropathy, chronic deformity of the left proximal femur with fracture with incomplete osseous fusion and vertebral decubitus ulcer without evidence of any organizing fluid collection. The patient has multiple antibiotic allergies. The patient accordingly was started on IV Invanz. Remains on Lovenox for DVT prophylaxis. Rest of the home medications have been resumed. Patient is currently receiving normal saline at rate of 75 cc an hour. The patient is currently on room air oxygen. Past Medical History Past Medical History: Deep Vein Thrombosis (DVT), GERD/Reflux, Hypertension, Musculoskeletal Disorder, Neurologic Disorder, Pneumonia, Seizure Disorder, Skin Disorder Additional Past Medical History / Comment(s): Pt diagnosed with MS at the age of 39 yrs, seizure/pneumonia/UTI with sepsis/respirtory failure/vented, cognitive impairment, sister states when he is feeling well he could speak a few words/nod head appropriately/give thumbs up/roll eyes but when ill is nonverbal, pt has dysphagia/NPO with peg tube, contractures, last seizure 07/2020, trigeminal neuralgia, dysarthria/anarthria/neurogenic bladder with IDC-UTIs/sepsis, multiple pneumonias, recent seizure-last one 07/03/20, incontinent of stool, pt has had decubitus ulcer coccyx-sister unsure of skin condition at this time, past anemia r/t heparin/epistaxiis which involved nasal packing/transfusions, DVT bilateral arms, hypoxia, oxygen at 2L/NC, L femoral head fracture History of Any Multi-Drug Resistant Organisms: ESBL, MRSA Date of last positivie culture/infection: 01/02/25-ESBL; 03/09/21-MRSA MDRO Source:: ESBL-urine; MRSA-abdomen/pegsite Past Surgical History: Tonsillectomy Additional Past Surgical History / Comment(s): Gastrostomy, peg tube, I&D coccyx decubitius, bronchoscopy, bilateral lasik eye surgery. Past Anesthesia/Blood Transfusion Reactions: No Reported Reaction Additional Past Anesthesia/Blood Transfusion Reaction / Comment(s): Pt has received blood in past without reaction. Past Psychological History: Depression Additional Psychological History / Comment(s): Pt resides at [facility]. He normally is in bed/amita lift to wheelchair. Has peg/IDC Smoking Status: Never smoker Past Alcohol Use History: None Reported Past Drug Use History: None Reported - Past Family History Father Family Medical History: Myocardial Infarction ([place]) Mother Family Medical History: Hypertension, Myocardial Infarction ([place]) Additional Family Medical History / Comment(s): Mother of a [place] at the age of 73 yrs. Medications and Allergies Home Medications Medication Instructions Recorded Confirmed Type Aspirin 81 mg PEG/G-TUBE DAILY 11/27/20 04/17/25 History carBAMazepine [carBAMazepine Oral 100 mg PEG/G-TUBE TID 07/02/21 04/17/25 History Susp] Lactulose 20 gm PEG/G-TUBE TID 01/03/22 04/17/25 History Scopolamine [Scopolamine 1 MG/72 1 patch TRANSDERM Q72H 01/03/22 04/17/25 History HR patch] oxyBUTYnin chloride 5 mg PEG/G-TUBE DAILY 12/19/22 04/17/25 History Famotidine [Pepcid] 20 mg PEG/G-TUBE DAILY 07/14/23 04/17/25 History Ipratropium-Albuterol Nebulize 3 ml INHALATION RT-TID 11/18/23 04/17/25 History [Duoneb 0.5 mg-3 mg/3 ml Soln] Baclofen 5 mg PEG/G-TUBE TID 07/25/24 04/17/25 History amantadine HCL [Amantadine] 100 mg PEG/G-TUBE DAILY 07/25/24 04/17/25 History bisacodyL [Dulcolax] 10 mg RECTAL DAILY PRN 07/25/24 04/17/25 History Losartan [Cozaar] 25 mg PEG/G-TUBE DAILY 02/11/25 04/17/25 History Omeprazole 20 mg PEG/G-TUBE DAILY 02/11/25 04/17/25 History Uti-Stat Oral 30 ml PEG/G-TUBE DAILY 02/11/25 04/17/25 History Liquid(Cranberry-Vitamin C-Inulin) Budesonide [Pulmicort] 1 mg INHALATION RT-Q12H 04/17/25 04/17/25 History Ipratropium-Albuterol Nebulize 3 ml INHALATION RT-Q4H PRN 04/17/25 04/17/25 History [Duoneb 0.5 mg-3 mg/3 ml Soln] Lacosamide [Vimpat Oral Soln] 150 mg PEG/G-TUBE Q12H 04/17/25 04/17/25 History Metoprolol Tartrate [Lopressor] 12.5 mg PEG/G-TUBE BID 04/17/25 04/17/25 History Sennosides [Senokot] 8.6 mg PEG/G-TUBE Q12H 04/17/25 04/17/25 History guaiFENesin SYRUP 100MG/5ML 200 mg PEG/G-TUBE BID 04/17/25 04/17/25 History [Robitussin] Allergies Allergy/AdvReac Type Severity Reaction Status Date / Time meropenem [From Merrem] Allergy Rash/Hives Verified 04/17/25 19:02 ceftolozane [From Zerbaxa] AdvReac Rapid Verified 04/17/25 19:02 Heart Rate tazobactam [From Zerbaxa] AdvReac Rapid Verified 04/17/25 19:02 Heart Rate Physical Exam Vitals: Vital Signs Temp Pulse Pulse Resp BP BP Pulse Ox 04/18/25 08:55 98.7 F 99 25 H 123/67 96 04/18/25 08:14 103 H 04/18/25 08:04 96 04/18/25 08:02 82 16 172/109 96 04/18/25 08:01 95 04/18/25 06:00 99.3 F 101 H 22 138/84 95 04/18/25 04:00 99.5 F 102 H 22 150/102 96 04/18/25 02:00 99.2 F 98 22 128/95 95 04/17/25 22:00 109 H 22 118/89 96 04/17/25 21:15 99.2 F 113 H 24 122/100 96 04/17/25 19:59 100.0 F H 120 H 24 118/76 95 04/17/25 18:39 130 H 26 H 130/80 98 04/17/25 18:35 27 H 04/17/25 17:39 128 H 20 134/80 96 04/17/25 17:33 103.4 F H 135 H 27 H 143/69 96 FiO2 04/18/25 08:55 04/18/25 08:14 04/18/25 08:04 21 04/18/25 08:02 04/18/25 08:01 04/18/25 06:00 04/18/25 04:00 04/18/25 02:00 04/17/25 22:00 04/17/25 21:15 04/17/25 19:59 04/17/25 18:39 04/17/25 18:35 04/17/25 17:39 04/17/25 17:33 Intake and Output 04/17/25 04/18/25 04/18/25 22:59 06:59 14:59 Output Total 900 Balance -900 Output: Urine 900 Other: Weight 77.111 kg 77.111 kg GENERAL EXAM: Lethargic, debilitated 64-year-old male, on room air oxygen. Has a weak and congested cough. Does not follow commands. HEAD: Normocephalic and atraumatic EYES: Normal reaction of pupils, equal size. NOSE: Clear with pink turbinates. THROAT: No erythema or exudates. NECK: No masses, no JVD. CHEST: No chest wall deformity. LUNGS: Equal air entry with coarse rhonchi heard bilaterally. CVS: S1 and S2 normal with no audible murmur, regular rhythm. No extra heart sounds ABDOMEN: No hepatosplenomegaly, active bowel sounds, no guarding or rigidity. PEG tube noted with continuous enteral nutrition. SPINE: No scoliosis or deformity SKIN: No rashes CENTRAL NERVOUS SYSTEM: Difficult to assess, tone is normal in all 4 extremities. EXTREMITIES: Contractures noted. There is no peripheral edema, clubbing, or cya nosis. Peripheral pulses are intact. Results - Laboratory Findings CBC and BMP: 04/18/25 06:41 04/18/25 06:41 PT/INR, D-dimer PT 11.2 sec (10.0-12.5) 04/17/25 17:49 INR 1.0 (<1.2) 04/17/25 17:49 Abnormal lab findings: Abnormal Labs 04/17/25 04/17/25 04/17/25 17:49 17:49 17:49 WBC 26.61 H RBC 5.65 H MCH 26.9 L MCHC 31.4 L Immature Gran # 0.16 H Neutrophils # 25.13 H Lymphocytes # 0.42 L Monocytes # Sodium 146 H Chloride 109 H BUN 24 H Plasma Lactic Acid Taurus 2.1 H* Troponin I Albumin Urine Protein Urine Blood Ur Leukocyte Esterase Urine RBC Urine WBC Triple Phos Crystals Urine Bacteria Urine Mucus 04/17/25 04/17/25 04/17/25 17:49 17:59 23:09 WBC RBC MCH MCHC Immature Gran # Neutrophils # Lymphocytes # Monocytes # Sodium Chloride BUN Plasma Lactic Acid Taurus Troponin I 0.047 H* 0.081 H* Albumin Urine Protein 1+ H Urine Blood Moderate H Ur Leukocyte Esterase Large H Urine RBC >182 H Urine WBC 63 H Triple Phos Crystals Many H Urine Bacteria Few H Urine Mucus Rare H 04/18/25 04/18/25 04/18/25 02:20 06:41 06:41 WBC 21.17 H RBC MCH 26.5 L MCHC 30.2 L Immature Gran # 0.11 H Neutrophils # 17.97 H Lymphocytes # Monocytes # 1.45 H Sodium Chloride 110 H BUN 21 H Plasma Lactic Acid Taurus Troponin I 0.075 H* Albumin 3.2 L Urine Protein Urine Blood Ur Leukocyte Esterase Urine RBC Urine WBC Triple Phos Crystals Urine Bacteria Urine Mucus Assessment and Plan Plan: Acute febrile illness with a temperature of 103.4 at time of admission. Currently afebrile. Rule out underlying recurrent urinary tract infection with secondary fever and sepsis. Rule out lower lobe bilateral pneumonia/aspiration. Hemodynamically stable. Acute on chronic mental status change, likely secondary to underlying infection/sepsis Recurrent urinary tract infection, likely sepsis with secondary gram-negative infection and Enterococcus group D. Acute leukocytosis secondary to above Elevated troponins, likely type II myocardial ischemia Advanced multiple sclerosis Chronic dysphagia, with PEG tube and enteral nutrition History of neurogenic bladder with chronic indwelling urinary catheter and frequent urinary tract infections History of seizure disorder History of dementia Poor overall functional performance based on the above-mentioned multiple comorbidities Plan: Aspiration precautions Urine cultures Blood cultures ID consult Continue IV Invanz Aspiration precautions Titrate oxygen for saturation above 90%, currently on room air oxygen Dietary were consulted and the patient was started on enteral feeding for nutritional support Lovenox for DVT prophylaxis Overall prognosis remains poor No active pulmonary critical care issues for now.
--- NOTE | 2025-04-18 22:35 | P.CONS ---
History of Present Illness - Reason for Consult Consult date: 04/18/25 Sepsis Requesting physician: Cici Jimenez - Chief Complaint Shortness of breath fever x few days - History of Present Illness Patient is 64-year-old male with a past medical history significant for MS in this patient who is [facility] also history of seizure disorder history recurrent pneumonia and Recent UTI patient has been brought into the ER concerning for increasing shortness of breath patient appearing noticed to have noisey breathing on Sunday and subsequently does have increasing shortness of breath patient on arrival to the ER noticed to be febrile with a temperature of 103.4 F patient was mildly tachycardic but not hypotensive or hypoxic no need for supplemental oxygen patient did have a white count of 26.61 with a left shift creatinine 0.78 liver enzymes are normal troponin is elevated urine has been positive influenza RSV COVID testing negative patient did have a chest x-ray no acute cardiopulmonary disease process he did have abdominal pelvis CT bilateral lower lobe airspace opacity correlate for pneumonia/aspiration urinary bladder gas correlate for cystitis with urinalysis mild circumferential wall thickening of the rectum possible for proctitis patient also have a CT of the chest did show airspace consolidation in the lung bases consistent with multilobular pneumonia patient has been admitted to hospital he did receive a dose of Levaquin in the ER infectious disease was consulted concern for sepsis most information has been obtained from review of the chart as the patient is currently nonverbal hide no family member at the bedside Review of Systems Positive points has been mentioned in HPI complete review could not be obtained because of his underlying mental status Past Medical History Past Medical History: Deep Vein Thrombosis (DVT), GERD/Reflux, Hypertension, Musculoskeletal Disorder, Neurologic Disorder, Pneumonia, Seizure Disorder, Skin Disorder Additional Past Medical History / Comment(s): Pt diagnosed with MS at the age of 39 yrs, seizure/pneumonia/UTI with sepsis/respirtory failure/vented, cognitive impairment, sister states when he is feeling well he could speak a few words/nod head appropriately/give thumbs up/roll eyes but when ill is nonverbal, pt has dysphagia/NPO with peg tube, contractures, last seizure 07/2020, trigeminal neuralgia, dysarthria/anarthria/neurogenic bladder with IDC-UTIs/sepsis, multiple pneumonias, recent seizure-last one 07/03/20, incontinent of stool, pt has had decubitus ulcer coccyx-sister unsure of skin condition at this time, past anemia r/t heparin/epistaxiis which involved nasal packing/transfusions, DVT bilateral arms, hypoxia, oxygen at 2L/NC, L femoral head fracture History of Any Multi-Drug Resistant Organisms: ESBL, MRSA Year Discovered:: 01/02/25-ESBL; 03/09/21-MRSA MDRO Source:: ESBL-urine; MRSA-abdomen/pegsite Past Surgical History: Tonsillectomy Additional Past Surgical History / Comment(s): Gastrostomy, peg tube, I&D coccyx decubitius, bronchoscopy, bilateral lasik eye surgery. Past Anesthesia/Blood Transfusion Reactions: No Reported Reaction Additional Past Anesthesia/Blood Transfusion Reaction / Comm: Pt has received blood in past without reaction. Past Psychological History: Depression Additional Psychological History / Comment(s): Pt resides at [facility]. He normally is in bed/amita lift to wheelchair. Has peg/IDC Smoking Status: Never smoker Past Alcohol Use History: None Reported Past Drug Use History: None Reported - Past Family History Father Family Medical History: Myocardial Infarction ([place]) Mother Family Medical History: Hypertension, Myocardial Infarction ([place]) Additional Family Medical History / Comment(s): Mother of a [place] at the age of 73 yrs. Medications and Allergies Home Medications Medication Instructions Recorded Confirmed Type Aspirin 81 mg PEG/G-TUBE DAILY 11/27/20 04/17/25 History carBAMazepine [carBAMazepine Oral 100 mg PEG/G-TUBE TID 07/02/21 04/17/25 History Susp] Lactulose 20 gm PEG/G-TUBE TID 01/03/22 04/17/25 History Scopolamine [Scopolamine 1 MG/72 1 patch TRANSDERM Q72H 01/03/22 04/17/25 His tory HR patch] oxyBUTYnin chloride 5 mg PEG/G-TUBE DAILY 12/19/22 04/17/25 History Famotidine [Pepcid] 20 mg PEG/G-TUBE DAILY 07/14/23 04/17/25 History Ipratropium-Albuterol Nebulize 3 ml INHALATION RT-TID 11/18/23 04/17/25 History [Duoneb 0.5 mg-3 mg/3 ml Soln] Baclofen 5 mg PEG/G-TUBE TID 07/25/24 04/17/25 History amantadine HCL [Amantadine] 100 mg PEG/G-TUBE DAILY 07/25/24 04/17/25 History bisacodyL [Dulcolax] 10 mg RECTAL DAILY PRN 07/25/24 04/17/25 History Losartan [Cozaar] 25 mg PEG/G-TUBE DAILY 02/11/25 04/17/25 History Omeprazole 20 mg PEG/G-TUBE DAILY 02/11/25 04/17/25 History Uti-Stat Oral 30 ml PEG/G-TUBE DAILY 02/11/25 04/17/25 History Liquid(Cranberry-Vitamin C-Inulin) Budesonide [Pulmicort] 1 mg INHALATION RT-Q12H 04/17/25 04/17/25 History Ipratropium-Albuterol Nebulize 3 ml INHALATION RT-Q4H PRN 04/17/25 04/17/25 History [Duoneb 0.5 mg-3 mg/3 ml Soln] Lacosamide [Vimpat Oral Soln] 150 mg PEG/G-TUBE Q12H 04/17/25 04/17/25 History Metoprolol Tartrate [Lopressor] 12.5 mg PEG/G-TUBE BID 04/17/25 04/17/25 History Sennosides [Senokot] 8.6 mg PEG/G-TUBE Q12H 04/17/25 04/17/25 History guaiFENesin SYRUP 100MG/5ML 200 mg PEG/G-TUBE BID 04/17/25 04/17/25 History [Robitussin] Allergies Allergy/AdvReac Type Severity Reaction Status Date / Time meropenem [From Merrem] Allergy Rash/Hives Verified 04/17/25 19:02 ceftolozane [From Zerbaxa] AdvReac Rapid Verified 04/17/25 19:02 Heart Rate tazobactam [From Zerbaxa] AdvReac Rapid Verified 04/17/25 19:02 Heart Rate Physical Exam Vitals: Vital Signs Temp Pulse Pulse Resp BP BP Pulse Ox 04/18/25 12:36 60 04/18/25 12:32 56 L 04/18/25 08:55 98.7 F 99 25 H 123/67 96 04/18/25 08:14 103 H 04/18/25 08:04 96 04/18/25 08:02 82 16 172/109 96 04/18/25 08:01 95 04/18/25 06:00 99.3 F 101 H 22 138/84 95 04/18/25 04:00 99.5 F 102 H 22 150/102 96 04/18/25 02:00 99.2 F 98 22 128/95 95 04/17/25 22:00 109 H 22 118/89 96 04/17/25 21:15 99.2 F 113 H 24 122/100 96 04/17/25 19:59 100.0 F H 120 H 24 118/76 95 04/17/25 18:39 130 H 26 H 130/80 98 04/17/25 18:35 27 H 04/17/25 17:39 128 H 20 134/80 96 04/17/25 17:33 103.4 F H 135 H 27 H 143/69 96 FiO2 04/18/25 12:36 04/18/25 12:32 04/18/25 08:55 04/18/25 08:14 04/18/25 08:04 21 04/18/25 08:02 04/18/25 08:01 04/18/25 06:00 04/18/25 04:00 04/18/25 02:00 04/17/25 22:00 04/17/25 21:15 04/17/25 19:59 04/17/25 18:39 04/17/25 18:35 04/17/25 17:39 04/17/25 17:33 Intake and Output 04/17/25 04/18/25 04/18/25 22:59 06:59 14:59 Output Total 900 Balance -900 Output: Urine 900 Other: Weight 77.111 kg 77.111 kg GENERAL DESCRIPTION: Elderly male lying in bed, no distress. No tachypnea or accessory muscle of respiration use. HEENT: Shows Pallor , no scleral icterus. Oral mucous membrane is dry. NECK: Trachea central, no thyromegaly. LUNGS: Unlabored breathing. Coarse breath sounds bilaterally HEART: S1, S2, regular rate and rhythm. No loud murmur ABDOMEN: Soft, no tenderness , guarding or rigidity, no organomegaly EXTREMITIES: No edema of feet. SKIN: No rash, no masses palpable. NEUROLOGICAL: The patient is awake, but nonverbal orientation could not be determined Results CBC & Chem 7: 04/18/25 06:41 04/18/25 06:41 Labs: Abnormal Lab Results - Last 24 Hours (Table) 04/17/25 04/17/25 04/17/25 Range/Units 17:49 17:49 17:49 WBC 26.61 H (4.50-10.00) 10*3/uL RBC 5.65 H (4.40-5.60) 10*6/uL MCH 26.9 L (27.0-32.0) pg MCHC 31.4 L (32.0-37.0) g/dL Immature Gran # 0.16 H (0.00-0.04) 10*3/uL Neutrophils # 25.13 H (1.80-7.70) 10*3/uL Lymphocytes # 0.42 L (0.90-5.00) 10*3/uL Monocytes # (0.20-1.00) 10*3/uL Sodium 146 H (137-145) mmol/L Chloride 109 H (98-107) mmol/L BUN 24 H (9-20) mg/dL Plasma Lactic Acid Taurus 2.1 H* (0.7-2.0) mmol/L Troponin I (0.000-0.034) ng/mL Albumin (3.5-5.0) g/dL Urine Protein (Negative) Urine Blood (Negative) Ur Leukocyte Esterase (Negative) Urine RBC (0-5) /hpf Urine WBC (0-5) /hpf Triple Phos Crystals (None) /hpf Urine Bacteria (None) /hpf Urine Mucus (None) /hpf 04/17/25 04/17/25 04/17/25 Range/Units 17:49 17:59 23:09 WBC (4.50-10.00) 10*3/uL RBC (4.40-5.60) 10*6/uL MCH (27.0-32.0) pg MCHC (32.0-37.0) g/dL Immature Gran # (0.00-0.04) 10*3/uL Neutrophils # (1.80-7.70) 10*3/uL Lymphocytes # (0.90-5.00) 10*3/uL Monocytes # (0.20-1.00) 10*3/uL Sodium (137-145) mmol/L Chloride (98-107) mmol/L BUN (9-20) mg/dL Plasma Lactic Acid Taurus (0.7-2.0) mmol/L Troponin I 0.047 H* 0.081 H* (0.000-0.034) ng/mL Albumin (3.5-5.0) g/dL Urine Protein 1+ H (Negative) Urine Blood Moderate H (Negative) Ur Leukocyte Esterase Large H (Negative) Urine RBC >182 H (0-5) /hpf Urine WBC 63 H (0-5) /hpf Triple Phos Crystals Many H (None) /hpf Urine Bacteria Few H (None) /hpf Urine Mucus Rare H (None) /hpf 04/18/25 04/18/25 04/18/25 Range/Units 02:20 06:41 06:41 WBC 21.17 H (4.50-10.00) 10*3/uL RBC (4.40-5.60) 10*6/uL MCH 26.5 L (27.0-32.0) pg MCHC 30.2 L (32.0-37.0) g/dL Immature Gran # 0.11 H (0.00-0.04) 10*3/uL Neutrophils # 17.97 H (1.80-7.70) 10*3/uL Lymphocytes # (0.90-5.00) 10*3/uL Monocytes # 1.45 H (0.20-1.00) 10*3/uL Sodium (137-145) mmol/L Chloride 110 H (98-107) mmol/L BUN 21 H (9-20) mg/dL Plasma Lactic Acid Taurus (0.7-2.0) mmol/L Troponin I 0.075 H* (0.000-0.034) ng/mL Albumin 3.2 L (3.5-5.0) g/dL Urine Protein (Negative) Urine Blood (Negative) Ur Leukocyte Esterase (Negative) Urine RBC (0-5) /hpf Urine WBC (0-5) /hpf Triple Phos Crystals (None) /hpf Urine Bacteria (None) /hpf Urine Mucus (None) /hpf Assessment and Plan (1) Severe sepsis Current Visit: Yes Status: Acute Code(s): A41.9 - SEPSIS, UNSPECIFIED OR GANISM; R65.20 - SEVERE SEPSIS WITHOUT SEPTIC SHOCK SNOMED Code(s): 26105916 (2) UTI (urinary tract infection) Current Visit: Yes Status: Acute Code(s): N39.0 - URINARY TRACT INFECTION, SITE NOT SPECIFIED SNOMED Code(s): 24802911 (3) Allergy to multiple antibiotics Current Visit: No Status: Acute Code(s): Z88.1 - ALLERGY STATUS TO OTHER ANTIBIOTIC AGENTS SNOMED Code(s): 946674937 (4) Pneumonia Current Visit: No Status: Acute Code(s): J18.9 - PNEUMONIA, UNSPECIFIED ORGANISM SNOMED Code(s): 937993152 Plan: 1patient presented to the hospital with sepsis in this patient who did have fever tachycardia elevated white count source unlikely combination of aspiration pneumonia and also component of catheter associated UTI in this patient significantly positive UA and abnormality of the bladder seen on the CAT scan. 2patient with multiple antibiotic ALLERGIES that would limit the number of antibiotic safe to use. 3we will empirically start the patient on ertapenem 1 g daily while waiting for the culture to finalize. We will follow on clinical condition and cultures to further adjust medication if needed Thank you for this consultation we will follow the patient along with you Dictation was produced using [employer] dictation software. please excuse any grammatical, word or spelling errors. Time with Patient: Greater than 30
[2025-04-19 00:05] LABS: Glucose,Whole Blood 81 mg/dL (70-110)
[2025-04-19] MEDS: HYDROmorphone 0.5 MG/0.5 ML SYRINGE IVP PRN (00:50)
[2025-04-19 06:13] LABS: Glucose,Whole Blood 72 mg/dL (70-110)
[2025-04-19] MEDS: SCOPOLAMINE 1 MG/72 HR PATCH TRANSDERM SCH (08:50)
--- NOTE | 2025-04-19 11:40 | P.PN ---
Subjective HISTORY OF PRESENT ILLNESS: This is a 64-year-old male with a past medical history significant for multiple sclerosis, UTI, cognitive impairment, PEG tube, seizures, decubitus ulcer, DVT, depression, and ESBL. Patient does not follow with a lehr tender. We have been asked to see the patient in consultation for elevated troponins. Patient exam ined at the bedside. Patient is nonverbal at baseline. There is no family present. Patient is a long-term resident of [facility]. He is admitted to the hospital secondary to sepsis. Patient found to have a white count of 26 upon admission. Additionally he was febrile with a rectal t emperature of 103.4. Telemetry reveals sinus tachycardia. DIAGNOSTICS: - EKG reveals sinus tachycardia with no signs of acute ischemia. - Chest xray negative for acute process. - Laboratory data: Troponin 0.047. 0.081. 0.075. - Current home cardiac medications include Toprol tartrate 12.5 mg twice a day, losartan 25 mg daily, aspirin 81 mg daily. - Most recent echocardiogram obtained in November 2024 revealed ejection fraction 35 to 40%, moderately reduced global ventricular systolic function, mild MR, trace AR, mild TR - Cardiac catheterization history: Unknown 04/19/2025 Patient examined this morning at bedside. He is resting comfortably in bed. Patient's heart rate has improved. Patient remains febrile however fever is not as high. Blood pressure stable. PHYSICAL EXAM: VITAL SIGNS: Reviewed. GENERAL: Well-developed in no acute distress. HEENT: Head is normocephalic. Pupils are equal, round. Sclerae anicteric. Mucous membranes of the mouth are moist. Neck supple. No JVD or thyromegaly LUNGS: Respirations even and unlabored. Lungs essentially clear to auscultation bilaterally. HEART: Tachycardic. Regular rate and rhythm. S1 and S2 heard. ABDOMEN: Soft. Nondistended. Nontender. EXTREMITIES: Contractures of all 4 extremities noted. No clubbing or cyanosis. Peripheral pulses intact. No lower extremity edema NEUROLOGIC: Awake and alert. Nonverbal at baseline ASSESSMENT: Sepsis Urinary tract infection Elevated troponins, type II NM secondary to sepsis no evidence of ACS Cardiomyopathy, 35 to 40%, ischemic versus nonischemic History of multiple sclerosis History of cognitive impairment History of PEG tube insertion History of seizures History of decubitus ulcer History of DVT History of depression History of ESBL Nonverbal at baseline PLAN: An acute coronary event has been ruled out No need to repeat echocardiogram as this was performed in November 2024 Continue metoprolol tartrate to 25 mg twice a day Treatment of sepsis per infectious disease and primary medicine Continue with conservative management at this time No further inpatient recommendations from a cardiac standpoint We will sign off. Please reconsult if needed. Nurse practitioner note has been reviewed by physician. Signing provider agrees with the documented findings, assessment, and plan of care documented by CLEANING PORTER as a scribe. Objective - Vital Signs Vital signs: Vital Signs Temp 99.8 F H 04/19/25 08:39 Pulse 105 H 04/19/25 08:39 Resp 26 H 04/19/25 08:39 BP 171/90 04/19/25 08:39 Pulse Ox 96 04/19/25 08:39 FiO2 21 04/18/25 08:04 Intake & Output 04/18/25 04/19/25 04/19/25 18:59 06:59 18:59 Output Total 1300 1100 Balance -1300 -1100 Weight 77.111 kg 90 kg Output: Urine 1300 1100 Other: # Bowel Movements 1 - Labs CBC & Chem 7: 04/18/25 06:41 04/18/25 06:41 Labs: Microbiology - Last 24 Hours (Table) 04/17/25 17:50 Blood Culture - Preliminary Blood
[2025-04-19 12:05] LABS: Glucose,Whole Blood 58 mg/dL (70-110)
--- NOTE | 2025-04-19 12:06 | P.PN ---
Subjective Progress Note Date: 04/19/25 This is a 64-year-old male patient with known history of multiple sclerosis. The patient is severely debilitated neurologically and he has been essentially bedridden. He is nonverbal. He is paraplegic. He has had previous episodes of urine tract infection, recurrent including various infections with gram-negative bacteria and Enterococcus. The patient has a chronically indwelling Stein catheter. The patient also has a PEG tube for enteral feeding and nutritional support. The patient is known to have advanced multiple sclerosis in addition to hypertension, previous history of DVTs, previous history of pneumonias and recurrent urine tract infection and seizure disorder. I have treated this patient back in January 2025 for a urinary tract infection and sepsis. At that time, the patient was also seen by urology and consideration was given for a suprapubic catheter insertion and this was not performed as the patient's body habitus was not favorable to have the catheter inserted. Based on that, the Stein catheter was capped. The patient presented to the emergency department on 04/17/2025 for increased shortness of breath. The patient is unable to provide any history and most information obtained from the medical records and family members. The patient apparently had some increased labored breathing and noisy breathing earlier this week and he became more drowsy compared to his baseline. He was also noted to have fever. Based on that, further workup was done. The patient's white cell count was 26 with a hemoglobin of 15.2 and a platelet count of 356. Sodium level was at 146, BUN was 24 with a creatinine 0.7. Troponins were 0.08 and 0.00 respectively x 2 and a proBNP level was 1230. Serum bicarb was at 22 with a BUN of 24 and creatinine of 0.7. UA was abnormal consistent with multiple white cells and many crystals and few bacteria. Culture still pending for now. Meanwhile, a chest x-ray done at the time of admission showed no acute cardiopulmonary process. The patient was given CAT scan of the chest abdomen and pelvis. CAT scan of the chest showed lower lobe vague pulmonary infiltrates. No mediastinal adenopathy. No pleural effusion. CAT scan of the abdomen and pelvis done on 04/17/2025 showed lower lobe airspace opacities. The patient had urinary bladder gas, mild circumferential wall thickening of the rectum, PEG tube in place, normal appendix, no obstructive uropathy, chronic deformity of the left proximal femur with fracture with incomplete osseous fusion and vertebral decubitus ulcer without evidence of any organizing fluid collection. The patient has multiple antibiotic allergies. The patient accordingly was started on IV Invanz. Remains on Lovenox for DVT prophylaxis. Rest of the home medications have been resumed. Patient is currently receiving normal saline at rate of 75 cc an hour. The patient is currently on room air oxygen. On today's evaluation of 04/19/2025, the patient is on the medical floor. The patient is hemodynamically stable. No hypotension. Remains on room air oxygen. Blood cultures still negative. Labs are still pending for now. The patient remains on IV Invanz. Awake and alert and communicating. is at the bedside. Remains on Lovenox for DVT prophylaxis. No other significant events overnight. Resting comfortably in bed. The patient has been treated for sepsis and hypotension. The patient has cardiomyopathy with an ejection fraction of 33 5 to 40%. He has advanced multiple sclerosis with cognitive impairment and motor dysfunction and is bedridden and he receives enteral feeding for additional support via PEG tube. He has had recurrent urine tract infection with ESBL producing organisms. Objective - Vital Signs Vital signs: Vital Signs Temp 98.3 F 04/19/25 03:41 Pulse 56 L 04/19/25 08:08 Resp 20 04/19/25 03:41 BP 125/68 04/19/25 03:41 Pulse Ox 95 04/19/25 07:58 FiO2 21 04/18/25 08:04 Intake & Output 04/18/25 04/19/25 04/19/25 18:59 06:59 18:59 Output Total 1300 1100 Balance -1300 -1100 Weight 77.111 kg 90 kg Output: Urine 1300 1100 Other: # Bowel Movements 1 - Exam GENERAL EXAM: Lethargic, debilitated 64-year-old male, on room air oxygen. Has a weak and congested cough. Does not follow commands. HEAD: Normocephalic and atraumatic EYES: Normal reaction of pupils, equal size. NOSE: Clear with pink turbinates. THROAT: No erythema or exudates. NECK: No masses, no JVD. CHEST: No chest wall deformity. LUNGS: Equal air entry with coarse rhonchi heard bilaterally. CVS: S1 and S2 normal with no audible murmur, regular rhythm. No extra heart sounds ABDOMEN: No hepatosplenomegaly, active bowel sounds, no guarding or rigidity. PEG tube noted with continuous enteral nutrition. SPINE: No scoliosis or deformity SKIN: No rashes CENTRAL NERVOUS SYSTEM: Difficult to assess, tone is normal in all 4 ext remities. EXTREMITIES: Contractures noted. There is no peripheral edema, clubbing, or cyanosis. Peripheral pulses are intact. - Labs CBC & Chem 7: 04/18/25 06:41 04/18/25 06:41 Labs: Microbiology - Last 24 Hours (Table) 04/17/25 17:50 Blood Culture - Preliminary Blood Assessment and Plan Plan: Acute febrile illness with a temperature of 103.4 at time of admission. Current ly afebrile. Rule out underlying recurrent urinary tract infection with secondary fever and sepsis. Rule out lower lobe bilateral pneumonia/aspiration. Hemodynamically stable. Acute on chronic mental status change, likely secondary to underlying infection/sepsis Recurrent urinary tract infection, likely sepsis with secondary gram-negative infection and Enterococcus group D. Acute leukocytosis secondary to above Elevated troponins, likely type II myocardial ischemia Advanced multiple sclerosis Chronic dysphagia, with PEG tube and enteral nutrition History of neurogenic bladder with chronic indwelling urinary catheter and frequent urinary tract infections History of seizure disorder History of dementia Poor overall functional performance based on the above-mentioned multiple c omorbidities Plan: Hemodynamically stable and the patient was transferred out of the intensive care unit Aspiration precautions Blood cultures is negative ID consult is appreciated Continue IV Invanz Aspiration precautions Titrate oxygen for saturation above 90%, currently on room air oxygen Dietary were consulted and the patient was started on enteral feeding for nutritional support Lovenox for DVT prophylaxis Overall prognosis remains poor No active pulmonary critical care issues for now.
[2025-04-19 12:28] LABS: Glucose,Whole Blood 123 mg/dL (70-110)
[2025-04-19] MEDS: MORPHINE SULFATE 4 MG/ML SYRINGE IV PRN (16:59)
[2025-04-19 18:10] LABS: Glucose,Whole Blood 66 mg/dL (70-110)
[2025-04-19] MEDS: DEXTROSE 50% SYRINGE 50 ML IVP STA (18:13)
[2025-04-20 01:02] LABS: Glucose,Whole Blood 83 mg/dL (70-110)
[2025-04-20 06:20] LABS: Glucose,Whole Blood 99 mg/dL (70-110)
--- NOTE | 2025-04-20 11:58 | P.CONS ---
History of Present Illness - Reason for Consult Consult date: 04/20/25 wound care - History of Present Illness This is a 64-year-old patient being seen on 3 S. for a pressure ulceration to the sacrum. Patient previously had a stage III pressure ulcer he is a resident of [facility] and they have been utilizing a skin substitute. Skin substitute was applied 6 days ago with a bordered foam dressing over top. The dressing was removed to find a stage II pressure ulcer measuring approximately 1 x 0.8 x 1 with granulation seen throughout the wound bed minimal slough and nonviable tissue. Review of systems: Unable to obtain due to patient's mental status Review Of Systems: Constitutional: No fever, no chills, no night sweats. No weight change. No weakness, fatigue or lethargy. No daytime sleepiness. Integumentary:reports wounds, no lesions. No rash or pruritus. No unusual bruising. No change in hair or nails. Assessment: 1. Stage II pressure ulcer sacrum Plan: 1. Apply collagen to the wound base moistened and cover with a bordered foam change Sunday. When patient returns to [facility] continue with skin substitute as per their wound care provider. Turn patient every 2 hours. Thank you for the consultation any questions please contact the wound care c enter DNP note has been reviewed and discussed with Dr. Martin and the impression and plan of care has been directed as dictated. Past Medical History Past Medical History: Deep Vein Thrombosis (DVT), GERD/Reflux, Hypertension, Musculoskeletal Disorder, Neurologic Disorder, Pneumonia, Seizure Disorder, Skin Disorder Additional Past Medical History / Comment(s): Pt diagnosed with MS at the age of 39 yrs, seizure/pneumonia/UTI with sepsis/respirtory failure/vented, cognitive impairment, sister states when he is feeling well he could speak a few words/nod head appropriately/give thumbs up/roll eyes but when ill is nonverbal, pt has dysphagia/NPO with peg tube, contractures, last seizure 07/2020, trigeminal neuralgia, dysarthria/anarthria/neurogenic bladder with IDC-UTIs/sepsis, multiple pneumonias, recent seizure-last one 07/03/20, incontinent of stool, pt has had decubitus ulcer coccyx-sister unsure of skin condition at this time, past anemia r/t heparin/epistaxiis which involved nasal packing/transfusions, DVT bilateral arms, hypoxia, oxygen at 2L/NC, L femoral head fracture History of Any Multi-Drug Resistant Organisms: ESBL, MRSA Year Discovered:: 01/02/25-ESBL; 03/09/21-MRSA MDRO Source:: ESBL-urine; MRSA-abdomen/pegsite Past Surgical History: Tonsillectomy Additional Past Surgical History / Comment(s): Gastrostomy, peg tube, I&D coccyx decubitius, bronchoscopy, bilateral lasik eye surgery. Past Anesthesia/Blood Transfusion Reactions: No Reported Reaction Additional Past Anesthesia/Blood Transfusion Reaction / Comm: Pt has received blood in past without reaction. Past Psychological History: Depression Additional Psychological History / Comment(s): Pt resides at [facility]. He normally is in bed/amita lift to wheelchair. Has peg/IDC Smoking Status: Never smoker Past Alcohol Use History: None Reported Past Drug Use History: None Reported - Past Family History Father Family Medical History: Myocardial Infarction (NV) Mother Family Medical History: Hypertension, Myocardial Infarction (NV) Additional Family Medical History / Comment(s): Mother of a NV at the age of 73 yrs. Medications and Allergies Home Medications Medication Instructions Recorded Confirmed Type Aspirin 81 mg PEG/G-TUBE DAILY 11/27/20 04/17/25 History carBAMazepine [carBAMazepine Oral 100 mg PEG/G-TUBE TID 07/02/21 04/17/25 History Susp] Lactulose 20 gm PEG/G-TUBE TID 01/03/22 04/17/25 History Scopolamine [Scopolamine 1 MG/72 1 patch TRANSDERM Q72H 01/03/22 04/17/25 History HR patch] oxyBUTYnin chloride 5 mg PEG/G-TUBE DAILY 12/19/22 04/17/25 History Famotidine [Pepcid] 20 mg PEG/G-TUBE DAILY 07/14/23 04/17/25 History Ipratropium-Albuterol Nebulize 3 ml INHALATION RT-TID 11/18/23 04/17/25 History [Duoneb 0.5 mg-3 mg/3 ml Soln] Baclofen 5 mg PEG/G-TUBE TID 07/25/24 04/17/25 History amantadine HCL [Amantadine] 100 mg PEG/G-TUBE DAILY 07/25/24 04/17/25 History bisacodyL [Dulcolax] 10 mg RECTAL DAILY PRN 07/25/24 04/17/25 History Losartan [Cozaar] 25 mg PEG/G-TUBE DAILY 02/11/25 04/17/25 History Omeprazole 20 mg PEG/G-TUBE DAILY 02/11/25 04/17/25 History Uti-Stat Oral 30 ml PEG/G-TUBE DAILY 02/11/25 04/17/25 History Liquid(Cranberry-Vitamin C-Inulin) Budesonide [Pulmicort] 1 mg INHALATION RT-Q12H 04/17/25 04/17/25 History Ipratropium-Albuterol Nebulize 3 ml INHALATION RT-Q4H PRN 04/17/25 04/17/25 History [Duoneb 0.5 mg-3 mg/3 ml Soln] Lacosamide [Vimpat Oral Soln] 150 mg PEG/G-TUBE Q12H 04/17/25 04/17/25 History Metoprolol Tartrate [Lopressor] 12.5 mg PEG/G-TUBE BID 04/17/25 04/17/25 History Sennosides [Senokot] 8.6 mg PEG/G-TUBE Q12H 04/17/25 04/17/25 History guaiFENesin SYRUP 100MG/5ML 200 mg PEG/G-TUBE BID 04/17/25 04/17/25 History [Robitussin] Allergies Allergy/AdvReac Type Severity Reaction Status Date / Time meropenem [From Merrem] Allergy Rash/Hives Verified 04/17/25 19:02 ceftolozane [From Zerbaxa] AdvReac Rapid Verified 04/17/25 19:02 Heart Rate tazobactam [From Zerbaxa] AdvReac Rapid Verified 04/17/25 19:02 Heart Rate Physical Exam Vitals: Vital Signs Temp Pulse Pulse Resp BP Pulse Ox 04/20/25 09:09 96 04/20/25 08:59 95 04/20/25 08:53 98.8 F 96 21 161/89 93 L 04/20/25 04:00 98.1 F 70 28 H 161/94 95 04/20/25 00:00 100.0 F H 89 28 H 135/77 95 04/19/25 20:00 99.6 F 98 30 H 148/79 95 04/19/25 16:45 100.4 F H 105 H 26 H 160/101 95 04/19/25 15:34 78 04/19/25 15:24 82 04/19/25 14:15 99.3 F Intake and Output 04/19/25 04/20/25 04/20/25 22:59 06:59 14:59 Output Total 302 936 1543 Balance -600 -525 -1000 Output: Urine 855 575 4470 Other: Voiding Method Indwelling Catheter Indwelling Catheter # Voids 1 # Bowel Movements 1 Weight 92 kg Results CBC & Chem 7: 04/18/25 06:41 04/18/25 06:41 Labs: Abnormal Lab Results - Last 24 Hours (Table) 04/19/25 04/19/25 04/19/25 Range/Units 12:04 12:27 18:09 POC Glucose (mg/dL) 58 L 123 H 66 L (70-110) mg/dL Microbiology - Last 24 Hours (Table) 04/17/25 17:50 Blood Culture - Preliminary Blood
[2025-04-20 12:12] LABS: Glucose,Whole Blood 97 mg/dL (70-110)
--- NOTE | 2025-04-20 12:33 | P.PN ---
Subjective Progress Note Date: 04/19/25 Principal diagnosis: Reason for follow-up is sepsis pneumonia/UTI Patient is 64-year-old male with a past medical history significant for MS in this patient who is bedbound intermediate resident also history of seizure disorder history recurrent pneumonia and Recent UTI patient has been brought into the ER concerning for increasing shortness of breath admit the hospital concerning for aspiration pneumonia and a catheter/UTI. On today's evaluation that is 04/19/2025, Patient did have a temperature of 99.8 F this morning patient seem to be breathing comfortably no distress he is awake but unable provide any history no vomiting or diarrhea has been reported No new lab has been obtained today cultures are pending Objective - Vital Signs Vital signs: Vital Signs Temp 99.8 F H 04/19/25 08:39 Pulse 105 H 04/19/25 08:39 Resp 26 H 04/19/25 08:39 BP 171/90 04/19/25 08:39 Pulse Ox 96 04/19/25 08:39 FiO2 21 04/18/25 08:04 Intake & Output 04/18/25 04/19/25 04/19/25 18:59 06:59 18:59 Output Total 1300 1100 Balance -1300 -1100 Weight 77.111 kg 90 kg Output: Urine 1300 1100 Other: # Bowel Movements 1 - Exam GENERAL DESCRIPTION: An elderly male lying in bed in no distress RESPIRATORY SYSTEM: Unlabored breathing , decreased breath sounds at bases HEART: S1 S2 regular rate and rhythm , ABDOMEN: Soft , no tenderness EXTREMITIES: No edema feet - Labs CBC & Chem 7: 04/18/25 06:41 04/18/25 06:41 Labs: Microbiology - Last 24 Hours (Table) 04/17/25 17:50 Blood Culture - Preliminary Blood Assessment and Plan (1) Severe sepsis Current Visit: Yes Status: Acute Code(s): A41.9 - SEPSIS, UNSPECIFIED ORGANISM; R65.20 - SEVERE SEPSIS WITHOUT SEPTIC SHOCK SNOMED Code(s): 19478299 (2) UTI (urinary tract infection) Current Visit: Yes Status: Acute Code(s): N39.0 - URINARY TRACT INFECTION, SITE NOT SPECIFIED SNOMED Code(s): 42056849 (3) Allergy to multiple antibiotics Current Visit: No Status: Acute Code(s): Z88.1 - ALLERGY STATUS TO OTHER ANTIBIOTIC AGENTS SNOMED Code(s): 224399407 (4) Pneumonia Current Visit: No Status: Acute Code(s): J18.9 - PNEUMONIA, UNSPECIFIED ORGANISM SNOMED Code(s): 332435980 Plan: 1patient presented to the hospital with sepsis in this patient who did have fever tachycardia elevated white count source unlikely combination of aspiration pneumonia and also component of catheter associated UTI in this patient significantly positive UA and abnormality of the bladder seen on the CAT scan. 2patient with multiple antibiotic ALLERGIES that would limit the number of antibiotic safe to use. 3patient fever pattern has improved no lab draw today cultures currently pending we will treat the patient with Invanz while waiting for the culture to finalize Dictation was produced using [employer] dictation software. please excuse any grammatical, word or spelling errors. Time with Patient: Less than 30
--- NOTE | 2025-04-20 12:33 | P.PN ---
Subjective Progress Note Date: 04/20/25 Principal diagnosis: Reason for follow-up is sepsis pneumonia/UTI Patient is 64-year-old male with a past medical history significant for MS in this patient who is bedbound skilled nursing resident also history of seizure disorder history recurrent pneumonia and Recent UTI patient has been brought into the ER concerning for increasing shortness of breath admit the hospital concerning for aspiration pneumonia and a catheter/UTI. On today's evaluation that is 04/20/2025 patient did have improvement his fever pattern with low-grade fever continue to follow tonight at midnight the patient is afebrile this morning patient is breathing comfortably and is currently on ro om air no vomiting diarrhea change reported by the nursing staff. No new lab has been obtained today, cultures are currently pending Objective - Vital Signs Vital signs: Vital Signs Temp 98.8 F 04/20/25 08:53 Pulse 96 04/20/25 09:09 Resp 04/20/25 08:53 BP 161/89 04/20/25 08:53 Pulse Ox 93 L 04/20/25 08:53 FiO2 04/18/25 08:04 Intake & Output 04/19/25 04/20/25 04/20/25 18:59 06:59 18:59 Output Total 370 090 5060 Balance -600 -525 -1000 Weight 92 kg Output: Urine 296 787 7617 Other: Voiding Method Indwelling Catheter # Voids 1 # Bowel Movements 1 - Exam GENERAL DESCRIPTION: An elderly male lying in bed in no distress RESPIRATORY SYSTEM: Unlabored breathing , decreased breath sounds at bases HEART: S1 S2 regular rate and rhythm , ABDOMEN: Soft , no tenderness EXTREMITIES: No edema feet - Labs CBC & Chem 7: 04/18/25 06:41 04/18/25 06:41 Labs: Abnormal Lab Results - Last 24 Hours (Table) 04/19/25 Range/Units 18:09 POC Glucose (mg/dL) 66 L (70-110) mg/dL Microbiology - Last 24 Hours (Table) 04/17/25 17:50 Blood Culture - Preliminary Blood Assessment and Plan (1) Severe sepsis Current Visit: Yes Status: Acute Code(s): A41.9 - SEPSIS, UNSPECIFIED ORGANISM; R65.20 - SEVERE SEPSIS WITHOUT SEPTIC SHOCK SNOMED Code(s): 60299096 (2) UTI (urinary tract infection) Current Visit: Yes Status: Acute Code(s): N39.0 - URINARY TRACT INFECTION, SITE NOT SPECIFIED SNOMED Code(s): 67688024 (3) Allergy to multiple antibiotics Current Visit: No Status: Acute Code(s): Z88.1 - ALLERGY STATUS TO OTHER ANTIBIOTIC AGENTS SNOMED Code(s): 334395764 (4) Pneumonia Current Visit: No Status: Acute Code(s): J18.9 - PNEUMONIA, UNSPECIFIED ORGANISM SNOMED Code(s): 930311794 Plan: 1patient presented to the hospital with sepsis in this patient who did have fever tachycardia elevated white count source unlikely combination of aspiration pneumonia and also component of catheter associated UTI in this patient significantly positive UA and abnormality of the bladder seen on the CAT scan. 2patient with multiple antibiotic ALLERGIES that would limit the number of a ntibiotic safe to use. 3patient did have resolution of his fever culture still pending we will treat with Invanz repeat CBC with a.m. lab to make sure white count is trending down Dictation was produced using [employer] dictation software. please excuse any grammatical, word or spelling errors. Time with Patient: Less than 30
[2025-04-20 18:23] LABS: Glucose,Whole Blood 109 mg/dL (70-110)
[2025-04-21 00:33] LABS: Glucose,Whole Blood 109 mg/dL (70-110)
--- NOTE | 2025-04-21 01:15 | PN ---
PROGRESS NOTE DATE OF SERVICE: 04/18/2025 SUBJECTIVE: This is a 64-year-old white male with altered mental status. Dr. Farah has been seeing the patient after obtaining for pulmonary . He has altered mental status, with catheter UTI, aspiration pneumonia, afebrile this morning. No vomiting or diarrhea. He is obtunded, sitting up in bed. OBJECTIVE: CARDIOVASCULAR: Decreased breath sounds x4. Heart S1, S2. ABDOMEN: Soft. EXTREMITIES: No edema. LABORATORY STUDIES: White cell count 21.7, hemoglobin is 13.4. ASSESSMENT: Severe sepsis, urinary tract infection, pneumonia, I will treat with antibiotics. Prognosis is guarded. Continue on current medications to cover urinary tract infection, pneumonia, sepsis, tachycardia. Pulmonary and Infectious Disease consults. MMODL / IJN: [id number] /
[2025-04-21 05:56] LABS: Glucose,Whole Blood 102 mg/dL (70-110)
[2025-04-21 07:01] LABS: ALT 22 U/L (4-49); African American GFR (CKD) >90 (>60 ml/min/1.73 sqM); Albumin 2.8 g/dL (3.5-5.0); Anion Gap 11 mmol/L; Blood Urea Nitrogen 8 mg/dL (9-20); Calcium 8.1 mg/dL (8.4-10.2); Carbon Dioxide 19 mmol/L (22-30); Chloride 110 mmol/L (98-107); Glucose 107 mg/dL (74-99); Non-African American GFR(CKD) >90 (>60 ml/min/1.73 sqM); Sodium 140 mmol/L (137-145); Total Protein 6.1 g/dL (6.3-8.2)
[2025-04-21 07:24] LABS: AST 39 U/L (17-59); Potassium 4.2 mmol/L (3.5-5.1)
[2025-04-21 07:25] LABS: Alkaline Phosphatase 74 U/L (38-126)
[2025-04-21 08:42] LABS: Basophils # (A) 0.02 10*3/uL (0.00-0.10); Basophils % (A) 0.2 %; Eosinophils # (A) 0.41 10*3/uL (0.04-0.35); Eosinophils % (A) 4.1 %; HCT 41.0 % (39.6-50.0); HGB 12.9 g/dL (13.0-17.0); Lymphocytes # (A) 0.87 10*3/uL (0.90-5.00); Lymphocytes % (A) 8.8 %; MCH 26.8 pg (27.0-32.0); MCHC 31.5 g/dL (32.0-37.0); MCV 85.2 fL (80.0-97.0); Monocytes # (A) 1.48 10*3/uL (0.20-1.00); Monocytes % (A) 14.9 %; Neutrophils # (A) 7.09 10*3/uL (1.80-7.70); Neutrophils % (A) 71.5 %; Platelet Count 319 10*3/uL (140-440); RBC 4.81 10*6/uL (4.40-5.60); RDW 15.5 % (11.5-14.5); WBC 9.92 10*3/uL (4.50-10.00)
[2025-04-21 11:19] LABS: Glucose,Whole Blood 119 mg/dL (70-110)
--- NOTE | 2025-04-21 14:05 | CDI ---
Documentation Clarification Form Date: 04/20/2025 05:47:00 PM From: Negin Salgado RN CDIS Phone: [phone] Admit Date: 04/17/2025 08:51:00 PM Patient Name: Chris Marvin Visit Number: [id number] Discharge Date: ATTENTION: The Clinical Documentation Specialists (CDI) and [facility] Coding Staff appreciate your assistance in clarifying documentation. Please respond to the clarification below the line at the bottom and electronically sign. The CDI & [facility] Coding staff will review the response and follow-up if needed. Please note: Queries are made part of the Legal Health Record. If you have any questions, please contact the author of this message via ITS. Doctor: Ousmane Bundy Encephalopathy is documented 04/17, HP. Additional clarification regarding the type of encephalopathy is requested. History/Risk Factors: 64 year old male presents to the ED for shortness of breath. Medical history: bed bound, indwelling aggarwal catheter, uti, sepsis, peg tube. 04/17, HP Clinical Indicators: Labs, 04/17: Wbc 26.61 Neutrophils 25.13, Lactic acid 2.1 Urine 04/17: Yellow, Turbid, protein 1+ urine blood moderate H large leukocyte esterase large rbc >182 wbc [address] Brain, 04/17: Nonspecific white matter changes, likely 2/2 chronic small vessel ischemic disease ED note 04/17: Severe sepsis, urinary tract infection, Acute encephalopathy. HP, 04/17: Severe sepsis and encephalopathy. Treatment: Levofloxacin IVPB x 1, 04/17 Acetaminophen IVPB x 1; Ibuprofen IV x 1; Flagy IVPB x 1; 04/18 Ertapenem IVPB Daily, Fluids: 04/17 LR 2L IV Bolus; Please clarify the type of encephalopathy, if known: [ ] Metabolic Encephalopathy [ ] Other, please specify [ ] Unable to determine (Template Last Revised: November 2020) MTDD
--- NOTE | 2025-04-21 14:58 | P.PN ---
Subjective Progress Note Date: 04/21/25 Principal diagnosis: Reason for follow-up is sepsis pneumonia/UTI Patient is 64-year-old male with a past medical history significant for MS in this patient who is bedbound [facility] resident also history of seizure disorder history recurrent pneumonia and Recent UTI patient has been brought into the ER concerning for increasing shortness of breath admit the hospital concerning for aspiration pneumonia and a catheter/UTI. On today's evaluation that is 04/21/2025, Patient did have a temperature 100.1 F this morning patient is currently breathing comfortably on room air patient is awake but nonverbal unable provide any history and vomiting diarrhea has been reported. Patient white count is 9.92 creatinine 0.47 blood culture negative Objective - Vital Signs Vital signs: Vital Signs Temp 100.1 F H 04/21/25 11:42 Pulse 53 L 04/21/25 12:56 Resp 18 04/21/25 11:42 BP 146/80 04/21/25 11:42 Pulse Ox 96 04/21/25 11:42 FiO2 21 04/18/25 08:04 Intake & Output 04/20/25 04/21/25 04/21/25 18:59 06:59 18:59 Intake Total 588 876 Output Total 1000 375 600 Balance -412 501 -600 Weight 92 kg 93.5 kg Intake: Tube Feeding 588 876 Output: Urine 1000 375 600 Other: Voiding Method Indwelling Catheter Indwelling Catheter Indwelling Catheter # Bowel Movements 1 1 - Exam GENERAL DESCRIPTION: An elderly male lying in bed in no distress RESPIRATORY SYSTEM: Unlabored breathing , decreased breath sounds at bases HEART: S1 S2 regular rate and rhythm , ABDOMEN: Soft , no tenderness EXTREMITIES: No edema feet - Labs CBC & Chem 7: 04/21/25 08:11 04/21/25 06:14 Labs: Abnormal Lab Results - Last 24 Hours (Table) 04/21/25 04/21/25 04/21/25 Range/Units 06:14 08:11 11:18 Hgb 12.9 L (13.0-17.0) g/dL MCH 26.8 L (27.0-32.0) pg MCHC 31.5 L (32.0-37.0) g/dL Immature Gran # 0.05 H (0.00-0.04) 10*3/uL Lymphocytes # 0.87 L (0.90-5.00) 10*3/uL Monocytes # 1.48 H (0.20-1.00) 10*3/uL Eosinophils # 0.41 H (0.04-0.35) 10*3/uL Chloride 110 H (98-107) mmol/L Carbon Dioxide 19 L (22-30) mmol/L BUN 8 L (9-20) mg/dL Creatinine 0.47 L (0.66-1.25) mg/dL Glucose 107 H (74-99) mg/dL POC Glucose (mg/dL) 119 H (70-110) mg/dL Calcium 8.1 L (8.4-10.2) mg/dL C-Reactive Protein 17.3 H (<1.0) mg/dL Total Protein 6.1 L (6.3-8.2) g/dL Albumin 2.8 L (3.5-5.0) g/dL Microbiology - Last 24 Hours (Table) 04/17/25 17:50 Blood Culture - Preliminary Blood Assessment and Plan (1) Severe sepsis Current Visit: Yes Status: Acute Code(s): A41.9 - SEPSIS, UNSPECIFIED ORGANISM; R65.20 - SEVERE SEPSIS WITHOUT SEPTIC SHOCK SNOMED Code(s): 47082889 (2) UTI (urinary tract infection) Current Visit: Yes Status: Acute Code(s): N39.0 - URINARY TRACT INFECTION, SITE NOT SPECIFIED SNOMED Code(s): 16193565 (3) Allergy to multiple antibiotics Current Visit: No Status: Acute Code(s): Z88.1 - ALLERGY STATUS TO OTHER ANTIBIOTIC AGENTS SNOMED Code(s): 244537571 (4) Pneumonia Current Visit: No Status: Acute Code(s): J18.9 - PNEUMONIA, UNSPECIFIED ORGANISM SNOMED Code(s): 367725324 Plan: 1patient presented to the hospital with sepsis in this patient who did have fever tachycardia elevated white count source unlikely combination of aspiration pneumonia and also component of catheter associated UTI in this patient significantly positive UA and abnormality of the bladder seen on the CAT scan. 2patient with multiple antibiotic ALLERGIES that would limit the number of antibiotic safe to use. 3patient did have improvement in his fever pattern her white count has been normal blood culture negative unfortunately no urine culture was done and the patient Stein catheter has not been changed we will change his Stein catheter and will repeat UA and urine culture continue with Shakir, discussed with nursing staff Dictation was produced using [employer] dictation software. please excuse any grammatical, word or spelling errors. Time with Patient: Less than 30
[2025-04-21 16:48] LABS: Glucose,Whole Blood 103 mg/dL (70-110)
[2025-04-21 17:33] LABS: Bilirubin,Urine Negative (Negative); Blood,Urine Moderate (Negative); Color,Urine Yellow; Glucose,Urine (UA) Negative (Negative); Ketones,Urine Negative (Negative); Leukocyte Esterase,Urine Large (Negative); Mucus,Urine Rare /hpf; Nitrite,Urine Negative (Negative); PH, Urine 6.0 (5.0-8.0); Protein,Urine 1+ (Negative); RBC,Urine 170 /hpf (0-5); Specific Gravity,Urine 1.018 (1.001-1.035); Squamous Epithelial Cell,Urine <1 /hpf (0-4); Urobilinogen,Urine 2.0 mg/dL (<2.0); WBC,Urine 94 /hpf (0-5)
[2025-04-21] MEDS: FUROSEMIDE 10 MG/ML 2 ML VIAL IV ONE (22:27)
[2025-04-22 00:26] LABS: Glucose,Whole Blood 127 mg/dL (70-110)
[2025-04-22 06:26] LABS: Glucose,Whole Blood 109 mg/dL (70-110)
[2025-04-22 08:12] LABS: Basophils # (A) 0.02 10*3/uL (0.00-0.10); Basophils % (A) 0.2 %; Eosinophils # (A) 0.35 10*3/uL (0.04-0.35); Eosinophils % (A) 3.8 %; HCT 42.9 % (39.6-50.0); HGB 13.5 g/dL (13.0-17.0); Lymphocytes # (A) 0.72 10*3/uL (0.90-5.00); Lymphocytes % (A) 7.9 %; MCH 26.7 pg (27.0-32.0); MCHC 31.5 g/dL (32.0-37.0); MCV 84.8 fL (80.0-97.0); Monocytes # (A) 0.82 10*3/uL (0.20-1.00); Monocytes % (A) 9.0 %; Neutrophils # (A) 7.17 10*3/uL (1.80-7.70); Neutrophils % (A) 78.7 %; Platelet Count 385 10*3/uL (140-440); RBC 5.06 10*6/uL (4.40-5.60); RDW 15.5 % (11.5-14.5); WBC 9.12 10*3/uL (4.50-10.00)
[2025-04-22 08:39] LABS: ALT 37 U/L (4-49); AST 42 U/L (17-59); African American GFR (CKD) >90 (>60 ml/min/1.73 sqM); Albumin 3.1 g/dL (3.5-5.0); Alkaline Phosphatase 100 U/L (38-126); Anion Gap 10 mmol/L; Blood Urea Nitrogen 9 mg/dL (9-20); Calcium 8.0 mg/dL (8.4-10.2); Carbon Dioxide 22 mmol/L (22-30); Chloride 111 mmol/L (98-107); Glucose 115 mg/dL (74-99); Non-African American GFR(CKD) >90 (>60 ml/min/1.73 sqM); Potassium 3.8 mmol/L (3.5-5.1); Sodium 143 mmol/L (137-145); Total Protein 6.3 g/dL (6.3-8.2)
[2025-04-22 12:04] LABS: Glucose,Whole Blood 109 mg/dL (70-110)
[2025-04-22 16:43] LABS: Glucose,Whole Blood 139 mg/dL (70-110)
--- NOTE | 2025-04-22 16:52 | PN ---
PROGRESS NOTE SUBJECTIVE: A 64-year-old white male, who has altered mental status due to severe sepsis. Dr. Farah is treating him for UTI, pneumonia, etc. He has chronic altered mental status due to prior strokes. OBJECTIVE: VITAL SIGNS: Temperature 99, respiratory rate 20 22, blood pressure 158/77 and 164/77, O2 96%-98% on room air, respiratory rate 18-20. LABORATORY DATA: Hemoglobin is 12.9, white count is 9.92. Sodium 140, potassium 4.2, BUN is 8, creatinine 0.47. Procalcitonin 0.61. Blood cultures negative. Urine cultures are pending. Remains on broad-spectrum antibiotics. Discussed with Dr. Farah. Breathing treatments for aspiration pneumonia. Prognosis guarded. Monitor electrolytes. MMODL / IJN: [id number] /
--- NOTE | 2025-04-22 22:53 | PN ---
PROGRESS NOTE Metabolic encephalopathy. MMODL / IJN: [id number] /
--- NOTE | 2025-04-23 01:01 | PN ---
PROGRESS NOTE SUBJECTIVE: Admitted with severe sepsis UTI, pneumonia. OBJECTIVE: CARDIOVASCULAR: S1, S2. LUNGS: Transmitted upper sounds, scattered rhonchi and wheeze. HEMATOLOGY: Negative for Homans. PSYCH: Fair mood and affect. The patient is more alert eating through the PEG tube. VITAL SIGNS: Temperature 98.8, pulse 60s to 100, respiratory rate 18 to 20, blood pressure 148/90, 95% on room air. PLAN: Continue antibiotics per Dr. Farah's recommendations. Rehydrate, PT and OT. liver enzymes are normal. Albumin is a little bit low. Prognosis guarded. Continue current treatment. Prognosis guarded. Antibiotics per Dr. Farah. MMODL / IJN: [id number] /
[2025-04-23 01:53] LABS: Glucose,Whole Blood 96 mg/dL (70-110)
[2025-04-23 06:14] LABS: Glucose,Whole Blood 122 mg/dL (70-110)
--- NOTE | 2025-04-23 08:16 | XR ---
EXAMINATION TYPE: XR chest 1V portable DATE OF EXAM: 04/23/2025 12:55 AM COMPARISON: 04/17/2025 CLINICAL INDICATION: Male, 64 years old with history of CAP, TECHNIQUE: XR chest 1V portable view(s) obtained. FINDINGS: The heart size is normal. The pulmonary vasculature is prominent. Diffuse increased opacities throughout bilateral lung prater. Correlate for pulmonary edema. Findings are developing from prior exam IMPRESSION: 1. Not developing pulmonary edema. Follow-up recommended. [facility], , 04/23/2025 8:14 AM
[2025-04-23 11:34] LABS: Glucose,Whole Blood 129 mg/dL (70-110)
--- NOTE | 2025-04-23 15:47 | P.PN ---
Subjective Progress Note Date: 04/22/25 Principal diagnosis: Reason for follow-up is sepsis pneumonia/UTI Patient is 64-year-old male with a past medical history significant for MS in this patient who is bedbound [facility] resident also history of seizure disorder history recurrent pneumonia and Recent UTI patient has been brought into the ER concerning for increasing shortness of breath admit the hospital concerning for aspiration pneumonia and a catheter/UTI. On today's evaluation that is 04/22/2025,the patient did have low-grade fever of 100.6 F at 1 AM, patient is currently breathing comfortably room air he is awake but unable for any history no vomiting or diarrhea has been reported. Patient did have a white count 9.12, creatinine 0.5 6 repeat UA after change of catheter positive with cultures pending Objective - Vital Signs Vital signs: Vital Signs Temp 99.1 F 04/22/25 08:09 Pulse 92 04/22/25 10:03 Resp 20 04/22/25 08:09 BP 182/90 04/22/25 08:09 Pulse Ox 97 04/22/25 08:09 FiO2 21 04/18/25 08:04 Intake & Output 04/21/25 04/22/25 04/22/25 18:59 06:59 18:59 Intake Total 720 Output Total 1120 1950 Balance -400 -1950 Weight 94.3 kg Intake: Tube Feeding 720 Output: Urine 1120 1950 Other: Voiding Method Indwelling Catheter Indwelling Catheter Indwelling Catheter # Bowel Movements 1 - Exam GENERAL DESCRIPTION: An elderly male lying in bed in no distress RESPIRATORY SYSTEM: Unlabored breathing , decreased breath sounds at bases HEART: S1 S2 regular rate and rhythm , ABDOMEN: Soft , no tenderness EXTREMITIES: No edema feet - Labs CBC & Chem 7: 04/22/25 07:27 04/22/25 07:27 Labs: Abnormal Lab Results - Last 24 Hours (Table) 04/21/25 04/21/25 04/22/25 Range/Units 06:14 17:10 00:25 MCH (27.0-32.0) pg MCHC (32.0-37.0) g/dL Lymphocytes # (0.90-5.00) 10*3/uL Chloride (98-107) mmol/L Creatinine (0.66-1.25) mg/dL Glucose (74-99) mg/dL POC Glucose (mg/dL) 127 H (70-110) mg/dL Calcium (8.4-10.2) mg/dL Albumin (3.5-5.0) g/dL Procalcitonin 0.61 H (0.02-0.50) ng/mL Urine Protein 1+ H (Negative) Urine Blood Moderate H (Negative) Ur Leukocyte Esterase Large H (Negative) Urine RBC 170 H (0-5) /hpf Urine WBC 94 H (0-5) /hpf Urine Mucus Rare H (None) /hpf 04/22/25 04/22/25 Range/Units 07:27 07:27 MCH 26.7 L (27.0-32.0) pg MCHC 31.5 L (32.0-37.0) g/dL Lymphocytes # 0.72 L (0.90-5.00) 10*3/uL Chloride 111 H (98-107) mmol/L Creatinine 0.56 L (0.66-1.25) mg/dL Glucose 115 H (74-99) mg/dL POC Glucose (mg/dL) (70-110) mg/dL Calcium 8.0 L (8.4-10.2) mg/dL Albumin 3.1 L (3.5-5.0) g/dL Procalcitonin (0.02-0.50) ng/mL Urine Protein (Negative) Urine Blood (Negative) Ur Leukocyte Esterase (Negative) Urine RBC (0-5) /hpf Urine WBC (0-5) /hpf Urine Mucus (None) /hpf Assessment and Plan (1) Severe sepsis Current Visit: Yes Status: Acute Code(s): A41.9 - SEPSIS, UNSPECIFIED ORGANISM; R65.20 - SEVERE SEPSIS WITHOUT SEPTIC SHOCK SNOMED Code(s): 28484187 (2) UTI (urinary tract infection) Current Visit: Yes Status: Acute Code(s): N39.0 - URINARY TRACT INFECTION, SITE NOT SPECIFIED SNOMED Code(s): 96739803 (3) Allergy to multiple antibiotics Current Visit: No Status: Acute Code(s): Z88.1 - ALLERGY STATUS TO OTHER ANTIBIOTIC AGENTS SNOMED Code(s): 943912356 (4) Pneumonia Current Visit: No Status: Acute Code(s): J18.9 - PNEUMONIA, UNSPECIFIED ORGANISM SNOMED Code(s): 506273676 Plan: 1patient presented to the hospital with sepsis in this patient who did have fever tachycardia elevated white count source unlikely combination of aspiration pneumonia and also component of catheter associated UTI in this patient significantly positive UA and abnormality of the bladder seen on the CAT scan. 2patient with multiple antibiotic ALLERGIES that would limit the number of antibiotic safe to use. 3patient did have improvement in his fever pattern, Setin catheter has been changed repeat UA is positive culture will be followed continue with Dannyanz Dictation was produced using [employer] dictation software. please excuse any grammatical, word or spelling errors. Time with Patient: Less than 30
--- NOTE | 2025-04-23 15:48 | P.PN ---
Subjective Progress Note Date: 04/23/25 Principal diagnosis: Reason for follow-up is sepsis pneumonia/UTI Patient is 64-year-old male with a past medical history significant for MS in this patient who is bedbound long-term resident also history of seizure disorder history recurrent pneumonia and Recent UTI patient has been brought into the ER concerning for increasing shortness of breath admit the hospital concerning for aspiration pneumonia and a catheter/UTI. On today's evaluation that is 04/23/2025,the patient did have improvement in his fever pattern with a temperature of 99.4 F at noon patient remains to be stable breathing comfortably room air awake but nonverbal and unable to provide any h istory no vomiting or diarrhea has been reported. No new lab has been obtained today Objective - Vital Signs Vital signs: Vital Signs Temp 99.4 F 04/23/25 12:00 Pulse 93 04/23/25 12:00 Resp 21 04/23/25 12:00 BP 149/86 04/23/25 12:00 Pulse Ox 95 04/23/25 12:00 FiO2 04/18/25 08:04 Intake & Output 04/22/25 04/23/25 04/23/25 18:59 06:59 18:59 Intake Total 80 Output Total 725 700 700 Balance -725 -620 -700 Weight 85.5 kg 85.5 kg Intake: Other 80 Output: Urine 725 700 700 Other: Voiding Method Indwelling Catheter Indwelling Catheter Indwelling Catheter # Bowel Movements 1 1 - Exam GENERAL DESCRIPTION: An elderly male lying in bed in no distress RESPIRATORY SYSTEM: Unlabored breathing , decreased breath sounds at bases HEART: S1 S2 regular rate and rhythm , ABDOMEN: Soft , no tenderness EXTREMITIES: No edema feet - Labs CBC & Chem 7: 04/22/25 07:27 04/22/25 07:27 Labs: Abnormal Lab Results - Last 24 Hours (Table) 04/22/25 04/23/25 04/23/25 Range/Units 16:41 06:10 11:32 POC Glucose (mg/dL) 139 H 122 H 129 H (70-110) mg/dL Microbiology - Last 24 Hours (Table) 04/21/25 17:10 Urine Culture - Final Urine,Voided 04/17/25 17:50 Blood Culture - Final Blood Assessment and Plan (1) Severe sepsis Current Visit: Yes Status: Acute Code(s): A41.9 - SEPSIS, UNSPECIFIED ORGAN ISM; R65.20 - SEVERE SEPSIS WITHOUT SEPTIC SHOCK SNOMED Code(s): 05638474 (2) UTI (urinary tract infection) Current Visit: Yes Status: Acute Code(s): N39.0 - URINARY TRACT INFECTION, SITE NOT SPECIFIED SNOMED Code(s): 88122091 (3) Allergy to multiple antibiotics Current Visit: No Status: Acute Code(s): Z88.1 - ALLERGY STATUS TO OTHER ANTIBIOTIC AGENTS SNOMED Code(s): 629551484 (4) Pneumonia Current Visit: No Status: Acute Code(s): J18.9 - PNEUMONIA, UNSPECIFIED ORGANISM SNOMED Code(s): 273066460 Plan: 1patient presented to the hospital with sepsis in this patient who did have fever tachycardia elevated white count source unlikely combination of aspiration pneumonia and also component of catheter associated UTI in this patient significantly positive UA and abnormality of the bladder seen on the CAT scan. 2patient with multiple antibiotic ALLERGIES that would limit the number of antibiotic safe to use. 3patient did have improvement in his fever pattern, Stein catheter has been changed repeat UA is positive culture so far negative currently on Invanz if the culture remained to be negative antibiotics may be safely discontinued Dictation was produced using [employer] dictation software. please excuse any grammatical, word or spelling errors. Time with Patient: Less than 30
[2025-04-23 16:27] LABS: Glucose,Whole Blood 115 mg/dL (70-110)
--- NOTE | 2025-04-24 14:44 | XR ---
EXAMINATION TYPE: XR chest 1V portable DATE OF EXAM: 04/24/2025 2:27 PM COMPARISON: 04/23/2025 CLINICAL INDICATION: Male, 64 years old with history of Cough/pneumonia, TECHNIQUE: XR chest 1V portable view(s) obtained. FINDINGS: The heart size is normal. The pulmonary vasculature is prominent. Diffuse increased lung markings are present. Correlate for pulmonary edema. IMPRESSION: 1. Clinical correlation for congestive heart failure and pulmonary edema is recommended. Findings are similar to slightly improved from comparison [facility], , 04/24/2025 2:42 PM
--- NOTE | 2025-04-24 15:25 | P.PN ---
Subjective Progress Note Date: 04/24/25 Principal diagnosis: Reason for follow-up is sepsis pneumonia/UTI Patient is 64-year-old male with a past medical history significant for MS in this patient who is bedbound alf resident also history of seizure disorder history recurrent pneumonia and Recent UTI patient has been brought into the ER concerning for increasing shortness of breath admit the hospital concerning for aspiration pneumonia and a catheter/UTI. On today's evaluation that is 04/24/2025, the patient continues to be afebrile, the patient is on room air and breathing comfortably, the Pt noticed to have more congested cough today no vomiting diarrhea any changes reported by the nursing staff. Patient did not have lab draw today repeat urine came back negative as well Objective - Vital Signs Vital signs: Vital Signs Temp 98.8 F 04/24/25 12:21 Pulse 94 04/24/25 12:21 Resp 18 04/24/25 12:21 BP 165/89 04/24/25 12:21 Pulse Ox 94 L 04/24/25 12:21 FiO2 21 04/18/25 08:04 Intake & Output 04/23/25 04/24/25 04/24/25 18:59 06:59 18:59 Output Total 1050 250 Balance -1050 -250 Weight 85.5 kg 85.4 kg Output: Urine 1050 250 Other: Voiding Method Indwelling Catheter Indwelling Catheter # Bowel Movements 1 - Exam GENERAL DESCRIPTION: An elderly male lying in bed in no distress RESPIRATORY SYSTEM: Unlabored breathing , decreased breath sounds at bases HEART: S1 S2 regular rate and rhythm , ABDOMEN: Soft , no tenderness EXTREMITIES: No edema feet - Labs CBC & Chem 7: 04/22/25 07:27 04/22/25 07:27 Labs: Abnormal Lab Results - Last 24 Hours (Table) 04/23/25 Range/Units 16:24 POC Glucose (mg/dL) 115 H (70-110) mg/dL Assessment and Plan (1) Severe sepsis Current Visit: Yes Status: Acute Code(s): A41.9 - SEPSIS, UNSPECIFIED ORGANISM; R65.20 - SEVERE SEPSIS WITHOUT SEPTIC SHOCK SNOMED Code(s): 87698109 (2) UTI (urinary tract infection) Current Visit: Yes Status: Acute Code(s): N39.0 - URINARY TRACT INFECTION, SITE NOT SPECIFIED SNOMED Code(s): 25784487 (3) Allergy to multiple antibiotics Current Visit: No Status: Acute Code(s): Z88.1 - ALLERGY STATUS TO OTHER ANTIBIOTIC AGENTS SNOMED Code(s): 284256007 (4) Pneumonia Current Visit: No Status: Acute Code(s): J18.9 - PNEUMONIA, UNSPECIFIED ORGANISM SNOMED Code(s): 785161039 Plan: 1patient presented to the hospital with sepsis in this patient who did have fever tachycardia elevated white count source unlikely combination of aspiration pneumonia and also component of catheter associated UTI in this patient significantly positive UA and abnormality of the bladder seen on the CAT scan. 2patient with multiple antibiotic ALLERGIES that would limit the number of antibiotic safe to use. 3patient did have resolution of his fever and noted to have worsening of respiratory status and congested cough chest x-ray is mostly CHF will benefit from cardiology evaluation for now continue with Invanz while inpatient Dictation was produced using [employer] dictation software. please excuse any grammatical, word or spelling errors. Time with Patient: Less than 30
[2025-04-24 17:52] LABS: Glucose,Whole Blood 108 mg/dL (70-110)
[2025-04-24 23:34] LABS: Glucose,Whole Blood 107 mg/dL (70-110)
--- NOTE | 2025-04-25 01:56 | PN ---
PROGRESS NOTE SUBJECTIVE: Admitted for severe sepsis, pneumonia, UTI, history of dementia, , Dr. Farah, breathing treatments, steroids. OBJECTIVE: VITAL SIGNS: Temperature 98.2, pulse 98, respiratory rate 16 to 20, blood pressure 140s to 160s over 84 to 104, O2 of 94 on room air. CARDIOVASCULAR: S1, S2. LUNGS: Transmitted upper sounds. GI: Soft. HEMATOLOGY: Negative Homans. PSYCH: Fair mood and affect. EXTREMITIES: ASSESSMENT/PLAN: Hypertension acceleration, aspiration pneumonia, urinary tract infection more cough today. Repeat urine culture came back negative. White count is 9.12, hemoglobin 13.5, urinary tract infection, allergies to multiple antibiotics, pneumonia, chronic obstructive pulmonary disease, dementia, severe sepsis. Prognosis is guarded. Ambulate as tolerated, PT, OT, possibly go back to rehab center on his own. MMODL / IJN: [id number] /
[2025-04-25 05:48] LABS: Glucose,Whole Blood 116 mg/dL (70-110)
[2025-04-25 12:33] LABS: Glucose,Whole Blood 146 mg/dL (70-110)
--- NOTE | 2025-04-25 15:13 | P.PN ---
Subjective Progress Note Date: 04/25/25 Principal diagnosis: Reason for follow-up is sepsis pneumonia/UTI Patient is 64-year-old male with a past medical history significant for MS in this patient who is [facility] also history of seizure disorder history recurrent pneumonia and Recent UTI patient has been brought into the ER concerning for increasing shortness of breath admit the hospital concerning for aspiration pneumonia and a catheter/UTI. On today's evaluation that is 04/25/2025, patient did have a temperature of 98.4 F this afternoon patient is breathing comfortably is currently on room air no worsening respiratory status congested cough vomiting or diarrhea reported by [facility] nursing staff. Patient denied any blood today Objective - Vital Signs Vital signs: Vital Signs Temp 98.4 F 04/25/25 12:51 Pulse 94 04/25/25 15:07 Resp 20 04/25/25 12:51 BP 151/82 04/25/25 12:51 Pulse Ox 93 L 04/25/25 12:51 FiO2 21 04/18/25 08:04 Intake & Output 04/24/25 04/25/25 04/25/25 18:59 06:59 18:59 Intake Total 0 Output Total 1750 2100 950 Balance -1750 -2100 -950 Weight 92 kg Intake: Oral 0 Output: Urine 1750 2100 950 Uretheral (Stein) 1650 Other: Voiding Method Indwelling Catheter Indwelling Catheter Indwelling Catheter # Bowel Movements 1 - Exam GENERAL DESCRIPTION: An elderly male lying in bed in no distress RESPIRATORY SYSTEM: Unlabored breathing , decreased breath sounds at bases HEART: S1 S2 regular rate and rhythm , ABDOMEN: Soft , no tenderness EXTREMITIES: No edema feet - Labs CBC & Chem 7: 04/22/25 07:27 04/22/25 07:27 Labs: Abnormal Lab Results - Last 24 Hours (Table) 04/25/25 04/25/25 Range/Units 05:46 12:22 POC Glucose (mg/dL) 116 H 146 H (70-110) mg/dL Assessment and Plan (1) Severe sepsis Current Visit: Yes Status: Acute Code(s): A41.9 - SEPSIS, UNSPECIFIED ORGANISM; R65.20 - SEVERE SEPSIS WITHOUT SEPTIC SHOCK SNOMED Code(s): 12920652 (2) UTI (urinary tract infection) Current Visit: Yes Status: Acute Code(s): N39.0 - URINARY TRACT INFECTION, SITE NOT SPECIFIED SNOMED Code(s): 17272777 (3) Allergy to multiple antibiotics Current Visit: No Status: Acute Code(s): Z88.1 - ALLERGY STATUS TO OTHER ANTIBIOTIC AGENTS SNOMED Code(s): 486012833 (4) Pneumonia Current Visit: No Status: Acute Code(s): J18.9 - PNEUMONIA, UNSPECIFIED ORGANISM SNOMED Code(s): 242358877 Plan: 1patient presented to the hospital with sepsis in this patient who did have fever tachycardia elevated white count source unlikely combination of aspiration pneumonia and also component of catheter associated UTI in this patient significantly positive UA and abnormality of the bladder seen on the CAT scan. 2patient with multiple antibiotic ALLERGIES that would limit the number of antibiotic safe to use. 3patient did have resolution of his fever and noted to have worsening of respiratory status and congested cough chest x-ray is mostly CHF cardiology has been consulted await their evaluation for now continue with Invanz discussed with the nursing staff Dictation was produced using [employer] dictation software. please excuse any grammatical, word or spelling errors. Time with Patient: Less than 30
[2025-04-25 18:35] LABS: Glucose,Whole Blood 118 mg/dL (70-110)
[2025-04-25] MEDS: FUROSEMIDE 10 MG/ML 4 ML VIAL IV ONE (20:31)
--- NOTE | 2025-04-26 01:02 | PN ---
PROGRESS NOTE SUBJECTIVE: White male wants to be admitted for congestive heart failure, consult Cardiology per family, history of pneumonia, UTI, seizures. Meropenem IV has been given OBJECTIVE: VITAL SIGNS: Temp 98.2, pulse is 60s to 90s, blood pressure 145 to 155 over on room air. CARDIOVASCULAR: S1, S2. LUNGS: Transmitted upper sounds. HEMATOLOGY: Negative Homans. PSYCH: Fair mood and affect. GI: Soft. LABORATORY DATA: Sugars in the mid 100. ASSESSMENT: Pneumonia, urinary tract infection, infectious Disease treated with IV antibiotics. Cardiology will be consulted for CHF. Prognosis guarded. MMODL / IJN: [id number] /
[2025-04-26 01:17] LABS: Glucose,Whole Blood 123 mg/dL (70-110)
[2025-04-26 06:45] LABS: Glucose,Whole Blood 119 mg/dL (70-110)
--- NOTE | 2025-04-26 09:41 | P.PN ---
Subjective Progress Note Date: 04/26/25 HISTORY OF PRESENT ILLNESS: This is a 64-year-old male with a past medical history significant for multiple sclerosis, UTI, cognitive impairment, PEG tube, seizures, decubitus ulcer, DVT, depression, and ESBL. 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 We have been asked to see the patient in consultation for elevated troponins. Patient examined at the bedside. Patient is nonverbal at baseline. There is no family present. Patient is a long-term resident of [facility]. He is admitted to the hospital secondary to sepsis. Patient found to have a white count of 26 upon admission. Additionally he was febrile with a rectal temperature of 103.4. Telemetry reveals sinus tachycardia. DIAGNOSTICS: - EKG reveals sinus tachycardia with no signs of acute ischemia. - Chest xray negative for acute process. - Laboratory data: Troponin 0.047. 0.081. 0.075. - Current home cardiac medications include Toprol tartrate 12.5 mg twice a day, losartan 25 mg daily, aspirin 81 mg daily. - Most recent echocardiogram obtained in November 2024 revealed ejection fraction 35 to 40%, moderately reduced global ventricular systolic function, mild MR, trace AR, mild TR - Cardiac catheterization history: Unknown 04/19/2025 he is resting comfortably in bed. Patient's heart rate has improved. Patient remains febrile however fever is not as high. Blood pressure stable. 04/26/2025 Patient is nonverbal and not able to give any history. Cardiology was reconsulted because of concerns of congestive heart failure. Chest x-ray shows mild increased interstitial marking which is slightly worse than what it was at the time of admission. There are no labs to review from last 3 days Home medication includes aspirin and losartan. He does have cardiomyopathy with a EF of 30 to 35% unknown if ischemic or not. Current medication includes aspirin losartan 25 mg, metoprolol 25 mg twice daily BP is 163/70 3 repeat 142/80, heart rate 86. PHYSICAL EXAM: VITAL SIGNS: Reviewed. GENERAL: Well-developed in no acute distress. HEENT: Head is normocephalic. Pupils are equal, round. Sclerae anicteric. Mucous membranes of the mouth are moist. Neck supple. No JVD or thyromegaly LUNGS: Respirations even and unlabored. Lungs essentially clear to auscultation bilaterally. HEART: Tachycardic. Regular rate and rhythm. S1 and S2 heard. ABDOMEN: Soft. Nondistended. Nontender. EXTREMITIES: Contractures of all 4 extremities noted. No clubbing or cyanosis. Peripheral pulses intact. No lower extremity edema NEUROLOGIC: Awake and alert. Nonverbal at baseline ASSESSMENT: Mild HFrEF exacerbation Cardiomyopathy, 35 to 40%, ischemic versus nonischemic Sepsis Urinary tract infection Elevated troponins, type II PR secondary to sepsis no evidence of ACS History of multiple sclerosis History of cognitive impairment History of PEG tube insertion History of seizures History of decubitus ulcer History of DVT History of depression History of ESBL Nonverbal at baseline PLAN: An acute coronary event has been ruled out No need to repeat echocardiogram as this was performed in November 2024 Intensify guideline directed medical therapy. Start Aldactone 25 mg daily and Lasix 40 mg daily. Continue losartan 25 mg daily, metoprolol 25 minutes twice daily. Continue aspirin. Overall feel patient may not benefit from statin at this time, with back to poor oral intake and GI pathologies. Overall prognosis very poor. Highly recommend family discussion for long-term goals of care Objective - Vital Signs Vital signs: Vital Signs Temp 98.7 F 04/26/25 07:19 Pulse 95 04/26/25 09:39 Resp 25 H 04/26/25 07:19 BP 142/80 04/26/25 07:19 Pulse Ox 95 04/26/25 07:19 FiO2 21 04/18/25 08:04 Intake & Output 04/25/25 04/26/25 04/26/25 18:59 06:59 18:59 Intake Total 0 Output Total 1949 1899 Balance -1949 -1899 Weight 93 kg Intake: Oral 0 Output: Urine 1949 1899 Uretheral (Stein) 1899 Other: Voiding Method Indwelling Catheter Indwelling Catheter # Bowel Movements 1 - Labs CBC & Chem 7: 04/22/25 07:27 04/22/25 07:27 Labs: Abnormal Lab Results - Last 24 Hours (Table) 04/25/25 04/25/25 04/26/25 Range/Units 12:22 18:34 01:14 POC Glucose (mg/dL) 146 H 118 H 123 H (70-110) mg/dL 04/26/25 Range/Units 06:44 POC Glucose (mg/dL) 119 H (70-110) mg/dL
[2025-04-26] MEDS: FUROSEMIDE 40 MG TAB PO SCH (09:52)
[2025-04-26] MEDS: SPIRONOLACTONE 25 MG TAB PO SCH (09:52)
--- NOTE | 2025-04-26 11:13 | XR ---
EXAMINATION TYPE: XR chest 2V DATE OF EXAM: 04/26/2025 11:01 AM COMPARISON: 04/24/2025 CLINICAL INDICATION: Male, 64 years old with history of Congestion: Shortness of breath TECHNIQUE: XR chest 2V views of the chest are obtained. FINDINGS: Scattered senescent parenchymal changes noted. Hyperinflation compatible with COPD. No evidence for infiltrate. No evidence for atelectasis. Heart size is stable. Mediastinal structures are stable and grossly unremarkable. No evidence for hilar prominence. Degenerative changes dorsal spine. IMPRESSION: 1. No evidence for acute pulmonary disease. [facility], , 04/26/2025 11:11 AM
[2025-04-26 11:30] LABS: Glucose,Whole Blood 103 mg/dL (70-110)
[2025-04-26] MEDS: IPRATROPIUM-ALBUTEROL 3 ML NEB INHALATION SCH (12:30)
[2025-04-26 12:59] LABS: Basophils # (A) 0.03 10*3/uL (0.00-0.10); Basophils % (A) 0.5 %; Eosinophils # (A) 0.37 10*3/uL (0.04-0.35); Eosinophils % (A) 6.4 %; HCT 42.1 % (39.6-50.0); HGB 13.0 g/dL (13.0-17.0); Lymphocytes # (A) 0.85 10*3/uL (0.90-5.00); Lymphocytes % (A) 14.7 %; MCH 26.2 pg (27.0-32.0); MCHC 30.9 g/dL (32.0-37.0); MCV 84.7 fL (80.0-97.0); Monocytes # (A) 0.42 10*3/uL (0.20-1.00); Monocytes % (A) 7.2 %; Neutrophils # (A) 4.08 10*3/uL (1.80-7.70); Neutrophils % (A) 70.3 %; Platelet Count 477 10*3/uL (140-440); RBC 4.97 10*6/uL (4.40-5.60); RDW 15.6 % (11.5-14.5); WBC 5.80 10*3/uL (4.50-10.00)
[2025-04-26 13:29] LABS: ALT 33 U/L (4-49); AST 27 U/L (17-59); African American GFR (CKD) >90 (>60 ml/min/1.73 sqM); Albumin 3.3 g/dL (3.5-5.0); Albumin/Globulin Ratio 0.9; Alkaline Phosphatase 91 U/L (38-126); Anion Gap 12 mmol/L; Blood Urea Nitrogen 17 mg/dL (9-20); Calcium 8.8 mg/dL (8.4-10.2); Carbon Dioxide 26 mmol/L (22-30); Chloride 102 mmol/L (98-107); Globulin 3.5 g/dL; Glucose 95 mg/dL (74-99); Magnesium 2.2 mg/dL (1.6-2.3); Non-African American GFR(CKD) >90 (>60 ml/min/1.73 sqM); Potassium 4.6 mmol/L (3.5-5.1); Sodium 140 mmol/L (137-145); Total Protein 6.8 g/dL (6.3-8.2)
[2025-04-26 13:38] LABS: NT-Pro-B-Type Natriuretic Pept 2930 pg/mL
--- NOTE | 2025-04-26 15:41 | P.PN ---
Subjective Progress Note Date: 04/26/25 Principal diagnosis: Reason for follow-up is sepsis pneumonia/UTI Patient is 64-year-old male with a past medical history significant for MS in this patient who is bedbound snf resident also history of seizure disorder history recurrent pneumonia and Recent UTI patient has been brought into the ER concerning for increasing shortness of breath admit the hospital concerning for aspiration pneumonia and a catheter/UTI. On today's evaluation that is 04/26/2025, Patient is afebrile patient is currently on room air and breathing comfortably no distress no vomiting diarrhea no changes reported by the nursing staff. Patient white count is 5.80, creatinine 0.60 blood urine culture have been negative Objective - Vital Signs Vital signs: Vital Signs Temp 98.4 F 04/26/25 13:19 Pulse 91 04/26/25 13:19 Resp 23 04/26/25 13:19 BP 141/86 04/26/25 13:19 Pulse Ox 97 04/26/25 13:19 FiO2 21 04/18/25 08:04 Intake & Output 04/25/25 04/26/25 04/26/25 18:59 06:59 18:59 Intake Total 0 Output Total 1949 1899 1450 Balance -1950 -190 -1450 Weight 93 kg Intake: Oral 0 Output: Urine 1949 1899 1449 Uretheral (Stein) 1899 Other: Voiding Method Indwelling Catheter Indwelling Catheter Indwelling Catheter # Bowel Movements 1 1 - Exam GENERAL DESCRIPTION: An elderly male lying in bed in no distress RESPIRATORY SYSTEM: Unlabored breathing , decreased breath sounds at bases HEART: S1 S2 regular rate and rhythm , ABDOMEN: Soft , no tenderness EXTREMITIES: No edema feet - Labs CBC & Chem 7: 04/26/25 12:19 04/26/25 12:19 Labs: Abnormal Lab Results - Last 24 Hours (Table) 04/25/25 04/26/25 04/26/25 Range/Units 18:34 01:14 06:44 MCH (27.0-32.0) pg MCHC (32.0-37.0) g/dL RDW (11.5-14.5) % Plt Count (140-440) 10*3/uL Immature Gran # (0.00-0.04) 10*3/uL Lymphocytes # (0.90-5.00) 10*3/uL Eosinophils # (0.04-0.35) 10*3/uL Creatinine (0.66-1.25) mg/dL POC Glucose (mg/dL) 118 H 123 H 119 H (70-110) mg/dL Albumin (3.5-5.0) g/dL 04/26/25 04/26/25 Range/Units 12:19 12:19 MCH 26.2 L (27.0-32.0) pg MCHC 30.9 L (32.0-37.0) g/dL RDW 15.6 H (11.5-14.5) % Plt Count 477 H (140-440) 10*3/uL Immature Gran # 0.05 H (0.00-0.04) 10*3/uL Lymphocytes # 0.85 L (0.90-5.00) 10*3/uL Eosinophils # 0.37 H (0.04-0.35) 10*3/uL Creatinine 0.60 L (0.66-1.25) mg/dL POC Glucose (mg/dL) (70-110) mg/dL Albumin 3.3 L (3.5-5.0) g/dL Assessment and Plan (1) Severe sepsis Current Visit: Yes Status: Acute Code(s): A41.9 - SEPSIS, UNSPECIFIED ORGANISM; R65.20 - SEVERE SEPSIS WITHOUT SEPTIC SHOCK SNOMED Code(s): 57975148 (2) UTI (urinary tract infection) Current Visit: Yes Status: Acute Code(s): N39.0 - URINARY TRACT INFECTION, SITE NOT SPECIFIED SNOMED Code(s): 75682513 (3) Allergy to multiple antibiotics Current Visit: No Status: Acute Code(s): Z88.1 - ALLERGY STATUS TO OTHER ANTIBIOTIC AGENTS SNOMED Code(s): 134555351 (4) Pneumonia Current Visit: No Status: Acute Code(s): J18.9 - PNEUMONIA, UNSPECIFIED ORGANISM SNOMED Code(s): 338957455 Plan: 1patient presented to the hospital with sepsis in this patient who did have fever tachycardia elevated white count source unlikely combination of aspiration pneumonia and also component of catheter associated UTI in this patient significantly positive UA and abnormality of the bladder seen on the CAT scan. 2patient with multiple antibiotic ALLERGIES that would limit the number of antibiotic safe to use. 3patient did have resolution of his fever and culture has been negative he will complete his 10-day course of IV Invanz by tomorrow and will not need any antibiotic on discharge Dictation was produced using [employer] dictation software. please excuse any grammatical, word or spelling errors. Time with Patient: Less than 30
[2025-04-26] MEDS: methylPREDNISolone SOD SUCCI 40 MG/ML 1 ML VIAL IV SCH (16:14)
[2025-04-26 17:21] LABS: Glucose,Whole Blood 112 mg/dL (70-110)
--- NOTE | 2025-04-26 21:52 | PN ---
PROGRESS NOTE SUBJECTIVE: The patient had worsening breathing, cough, congestion, seen by Pulmonary, Dr. Farah for Infectious Disease and Cardiology. Saturations 97 on room air. OBJECTIVE: VITAL SIGNS: Blood pressure 141/86, pulse is 91, nonlabored; temp 98.4. LUNGS: Scattered rhonchi. CARDIOVASCULAR: S1, S2. HEMATOLOGY: Negative Homans. Chest x-ray done today showed to increase what sounds in his lungs. Chest x-ray was done. Seen by Infectious Disease and Cardiology. Chest x-ray was negative. Dr. Silveira, Cardiology saw the patient today also. He has cardiomyopathy 30% to 35% ejection fraction. We will start metoprolol, history of PEG tube incision, cognitive impairment, MS, seizures, decubitus ulcer, DVT, depression, ESBL. Nonverbal at baseline. He is on Aldactone, Lasix, losartan, metoprolol, aspirin. Poor prognosis, back to the rehab center soon. Please see further orders. Antibiotics per Dr. Farah. MMODL / IJN: [id number] /
[2025-04-27 00:46] LABS: Glucose,Whole Blood 103 mg/dL (70-110)
[2025-04-27 06:49] LABS: Glucose,Whole Blood 159 mg/dL (70-110)
[2025-04-27 10:21] LABS: ALT 30 U/L (4-49); African American GFR (CKD) >90 (>60 ml/min/1.73 sqM); Albumin 3.3 g/dL (3.5-5.0); Albumin/Globulin Ratio 0.9; Anion Gap 10 mmol/L; Blood Urea Nitrogen 21 mg/dL (9-20); Calcium 8.8 mg/dL (8.4-10.2); Carbon Dioxide 23 mmol/L (22-30); Chloride 106 mmol/L (98-107); Globulin 3.8 g/dL; Glucose 118 mg/dL (74-99); Non-African American GFR(CKD) >90 (>60 ml/min/1.73 sqM); Sodium 139 mmol/L (137-145); Total Protein 7.1 g/dL (6.3-8.2)
[2025-04-27 10:24] LABS: AST 30 U/L (17-59); Alkaline Phosphatase 92 U/L (38-126); Magnesium 2.3 mg/dL (1.6-2.3); Potassium 5.2 mmol/L (3.5-5.1)
--- NOTE | 2025-04-27 11:27 | P.PN ---
Subjective HISTORY OF PRESENT ILLNESS: This is a 64-year-old male with a past medical history significant for multiple sclerosis, UTI, cognitive impairment, PEG tube, seizures, decubitus ulcer, DVT, depression, and ESBL. 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 We have been asked to see the patient in consultation for elevated troponins. Patient exam ined at the bedside. Patient is nonverbal at baseline. There is no family present. Patient is a long-term resident of [facility]. He is admitted to the hospital secondary to sepsis. Patient found to have a white count of 26 upon admission. Additionally he was febrile with a rectal t emperature of 103.4. Telemetry reveals sinus tachycardia. DIAGNOSTICS: - EKG reveals sinus tachycardia with no signs of acute ischemia. - Chest xray negative for acute process. - Laboratory data: Troponin 0.047. 0.081. 0.075. - Current home cardiac medications include Toprol tartrate 12.5 mg twice a day, losartan 25 mg daily, aspirin 81 mg daily. - Most recent echocardiogram obtained in November 2024 revealed ejection fraction 35 to 40%, moderately reduced global ventricular systolic function, mild MR, trace AR, mild TR - Cardiac catheterization history: Unknown 04/19/2025 Patient examined this morning at bedside. He is resting comfortably in bed. Patient's heart rate has improved. Patient remains febrile however fever is not as high. Blood pressure stable. 04/27/2025 Cardiology was reconsulted yesterday secondary congestive heart failure. Patient was started on oral Lasix 40 mg daily. According to the MAR patient has been had normal saline ordered at 75 cc an hour since April 17, 2025. Patient is currently none verbal. He appears to be resting comfortably. He is on room air with oxygen saturations greater than 92%. PHYSICAL EXAM: VITAL SIGNS: Reviewed. GENERAL: Well-developed in no acute distress. HEENT: Head is normocephalic. Pupils are equal, round. Sclerae anicteric. Mucous membranes of the mouth are moist. Neck supple. No JVD or thyromegaly LUNGS: Respirations even and unlabored. Lungs essentially clear to auscultation bilaterally. HEART: Regular rate and rhythm. S1 and S2 heard. ABDOMEN: Soft. Nondistended. Nontender. EXTREMITIES: Contractures of all 4 extremities noted. No clubbing or cyanosis. Peripheral pulses intact. No lower extremity edema NEUROLOGIC: Awake and alert. Nonverbal at baseline ASSESSMENT: Sepsis Urinary tract infection Elevated troponins, type II TN secondary to sepsis no evidence of ACS Cardiomyopathy, 35 to 40%, ischemic versus nonischemic History of multiple sclerosis History of cognitive impairment History of PEG tube insertion History of seizures History of decubitus ulcer History of DVT History of depression History of ESBL Nonverbal at baseline PLAN: Continue current cardiac medications including aspirin, Lasix, losartan Aldactone, and metoprolol Discontinue IV fluids Further recommendations pending patient course Nurse practitioner note has been reviewed by physician. Signing provider agrees with the documented findings, assessment, and plan of care documented by TONGUE CARRIER as a scribe. Objective - Vital Signs Vital signs: Vital Signs Temp 97.6 F 04/27/25 07: Pulse 93 04/27/25 10:01 Resp 18 04/27/25 07:28 BP 146/84 04/27/25 07:28 Pulse Ox 97 04/27/25 07:28 FiO2 21 04/18/25 08:04 Intake & Output 04/26/25 04/27/25 04/27/25 18:59 06:59 18:59 Output Total 1450 1300 Balance -1450 -1300 Output: Urine 1450 1300 Other: Voiding Method Indwelling Catheter Indwelling Catheter Indwelling Catheter # Bowel Movements 1 - Labs CBC & Chem 7: 04/26/25 12:19 04/27/25 09:25 Labs: Abnormal Lab Results - Last 24 Hours (Table) 04/26/25 04/26/25 04/26/25 Range/Units 12:19 12:19 17:20 MCH 26.2 L (27.0-32.0) pg MCHC 30.9 L (32.0-37.0) g/dL RDW 15.6 H (11.5-14.5) % Plt Count 477 H (140-440) 10*3/uL Immature Gran # 0.05 H (0.00-0.04) 10*3/uL Lymphocytes # 0.85 L (0.90-5.00) 10*3/uL Eosinophils # 0.37 H (0.04-0.35) 10*3/uL Potassium (3.5-5.1) mmol/L BUN (9-20) mg/dL Creatinine 0.60 L (0.66-1.25) mg/dL Glucose (74-99) mg/dL POC Glucose (mg/dL) 112 H (70-110) mg/dL Albumin 3.3 L (3.5-5.0) g/dL 04/27/25 04/27/25 Range/Units 06:48 09:25 MCH (27.0-32.0) pg MCHC (32.0-37.0) g/dL RDW (11.5-14.5) % Plt Count (140-440) 10*3/uL Immature Gran # (0.00-0.04) 10*3/uL Lymphocytes # (0.90-5.00) 10*3/uL Eosinophils # (0.04-0.35) 10*3/uL Potassium 5.2 H (3.5-5.1) mmol/L BUN 21 H (9-20) mg/dL Creatinine 0.60 L (0.66-1.25) mg/dL Glucose 118 H (74-99) mg/dL POC Glucose (mg/dL) 159 H (70-110) mg/dL Albumin 3.3 L (3.5-5.0) g/dL
[2025-04-27 11:35] LABS: Glucose,Whole Blood 129 mg/dL (70-110)
[2025-04-27 14:31] LABS: Basophils # (A) 0.01 10*3/uL (0.00-0.10); Basophils % (A) 0.2 %; Eosinophils # (A) 0.00 10*3/uL (0.04-0.35); Eosinophils % (A) 0.0 %; HCT 41.5 % (39.6-50.0); HGB 12.8 g/dL (13.0-17.0); Lymphocytes # (A) 0.26 10*3/uL (0.90-5.00); Lymphocytes % (A) 5.7 %; MCH 26.7 pg (27.0-32.0); MCHC 30.8 g/dL (32.0-37.0); MCV 86.5 fL (80.0-97.0); Monocytes # (A) 0.07 10*3/uL (0.20-1.00); Monocytes % (A) 1.5 %; Neutrophils # (A) 4.22 10*3/uL (1.80-7.70); Neutrophils % (A) 91.9 %; Platelet Count 442 10*3/uL (140-440); RBC 4.80 10*6/uL (4.40-5.60); RDW 15.4 % (11.5-14.5); WBC 4.59 10*3/uL (4.50-10.00)
[2025-04-27 16:56] LABS: Glucose,Whole Blood 131 mg/dL (70-110)
[2025-04-28 00:41] LABS: Glucose,Whole Blood 171 mg/dL (70-110)
[2025-04-28 06:05] LABS: Glucose,Whole Blood 160 mg/dL (70-110)
[2025-04-28 11:25] LABS: African American GFR (CKD) >90 (>60 ml/min/1.73 sqM); Anion Gap 10 mmol/L; Blood Urea Nitrogen 26 mg/dL (9-20); Calcium 8.9 mg/dL (8.4-10.2); Carbon Dioxide 27 mmol/L (22-30); Chloride 105 mmol/L (98-107); Glucose 105 mg/dL (74-99); Non-African American GFR(CKD) >90 (>60 ml/min/1.73 sqM); Potassium 4.5 mmol/L (3.5-5.1); Sodium 142 mmol/L (137-145)
[2025-04-28 11:27] LABS: Glucose,Whole Blood 124 mg/dL (70-110)
--- NOTE | 2025-04-28 11:31 | P.PN ---
Subjective HISTORY OF PRESENT ILLNESS: This is a 64-year-old male with a past medical history significant for multiple sclerosis, UTI, cognitive impairment, PEG tube, seizures, decubitus ulcer, DVT, depression, and ESBL. 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 We have been asked to see the patient in consultation for elevated troponins. Patient exam ined at the bedside. Patient is nonverbal at baseline. There is no family present. Patient is a long-term resident of [facility]. He is admitted to the hospital secondary to sepsis. Patient found to have a white count of 26 upon admission. Additionally he was febrile with a rectal t emperature of 103.4. Telemetry reveals sinus tachycardia. DIAGNOSTICS: - EKG reveals sinus tachycardia with no signs of acute ischemia. - Chest xray negative for acute process. - Laboratory data: Troponin 0.047. 0.081. 0.075. - Current home cardiac medications include Toprol tartrate 12.5 mg twice a day, losartan 25 mg daily, aspirin 81 mg daily. - Most recent echocardiogram obtained in November 2024 revealed ejection fraction 35 to 40%, moderately reduced global ventricular systolic function, mild MR, trace AR, mild TR - Cardiac catheterization history: Unknown 04/19/2025 Patient examined this morning at bedside. He is resting comfortably in bed. Patient's heart rate has improved. Patient remains febrile however fever is not as high. Blood pressure stable. 04/27/2025 Cardiology was reconsulted yesterday secondary congestive heart failure. Patient was started on oral Lasix 40 mg daily. According to the [facility] patient has been had normal saline ordered at 75 cc an hour since April 17, 2025. Patient is currently none verbal. He appears to be resting comfortably. He is on room air with oxygen saturations greater than 92%. 04/28/2025 Patient examined this morning at bedside. Patient is nonverbal which is his baseline. He appears to be resting comfortably in bed. Vital signs are stable. PHYSICAL EXAM: VITAL SIGNS: Reviewed. GENERAL: Well-developed in no acute distress. HEENT: Head is normocephalic. Pupils are equal, round. Sclerae anicteric. Mucous membranes of the mouth are moist. Neck supple. No JVD or thyromegaly LUNGS: Respirations even and unlabored. Lungs essentially clear to auscultation bilaterally. HEART: Regular rate and rhythm. S1 and S2 heard. ABDOMEN: Soft. Nondistended. Nontender. EXTREMITIES: Contractures of all 4 extremities noted. No clubbing or cyanosis. Peripheral pulses intact. No lower extremity edema NEUROLOGIC: Awake and alert. Nonverbal at baseline ASSESSMENT: Sepsis Urinary tract infection Elevated troponins, type II NV secondary to sepsis no evidence of ACS Cardiomyopathy, 35 to 40%, ischemic versus nonischemic History of multiple sclerosis History of cognitive impairment History of PEG tube insertion History of seizures History of decubitus ulcer History of DVT History of depression History of ESBL Nonverbal at baseline PLAN: Continue current cardiac medications including aspirin, Lasix, losartan Aldactone, and metoprolol No further inpatient recommendations from a cardiac standpoint We will sign off. Please reconsult if needed. Nurse practitioner note has been reviewed by physician. Signing provider agrees with the documented findings, assessment, and plan of care documented by PULMONOLOGIST INTENSIVIST as a scribe. Objective - Vital Signs Vital signs: Vital Signs Temp 97.7 F 04/28/25 07:59 Pulse 60 04/28/25 09:44 Resp 18 04/28/25 07:59 BP 149/83 04/28/25 07:59 Pulse Ox 96 04/28/25 07:59 FiO2 21 04/18/25 08:04 Intake & Output 04/27/25 04/28/25 04/28/25 18:59 06:59 18:59 Output Total 650 Balance -650 Weight 89.5 kg Output: Urine 650 Other: Voiding Method Indwelling Catheter Indwelling Catheter Indwelling Catheter - Labs CBC & Chem 7: 04/27/25 14:09 04/28/25 10:42 Labs: Abnormal Lab Results - Last 24 Hours (Table) 04/27/25 04/27/25 04/27/25 Range/Units 11:33 14:09 16:54 Hgb 12.8 L (13.0-17.0) g/dL MCH 26.7 L (27.0-32.0) pg MCHC 30.8 L (32.0-37.0) g/dL RDW 15.4 H (11.5-14.5) % Plt Count 442 H (140-440) 10*3/uL Lymphocytes # 0.26 L (0.90-5.00) 10*3/uL Monocytes # 0.07 L (0.20-1.00) 10*3/uL Eosinophils # 0.00 L (0.04-0.35) 10*3/uL BUN (9-20) mg/dL Glucose (74-99) mg/dL POC Glucose (mg/dL) 129 H 131 H (70-110) mg/dL 04/28/25 04/28/25 04/28/25 Range/Units 00:40 06:03 10:42 Hgb (13.0-17.0) g/dL MCH (27.0-32.0) pg MCHC (32.0-37.0) g/dL RDW (11.5-14.5) % Plt Count (140-440) 10*3/uL Lymphocytes # (0.90-5.00) 10*3/uL Monocytes # (0.20-1.00) 10*3/uL Eosinophils # (0.04-0.35) 10*3/uL BUN 26 H (9-20) mg/dL Glucose 105 H (74-99) mg/dL POC Glucose (mg/dL) 171 H 160 H (70-110) mg/dL 04/28/25 Range/Units 11:25 Hgb (13.0-17.0) g/dL MCH (27.0-32.0) pg MCHC (32.0-37.0) g/dL RDW (11.5-14.5) % Plt Count (140-440) 10*3/uL Lymphocytes # (0.90-5.00) 10*3/uL Monocytes # (0.20-1.00) 10*3/uL Eosinophils # (0.04-0.35) 10*3/uL BUN (9-20) mg/dL Glucose (74-99) mg/dL POC Glucose (mg/dL) 124 H (70-110) mg/dL Microbiology - Last 24 Hours (Table) 04/26/25 12:19 Blood Culture Gram Stain - Preliminary Blood Blood Culture - Preliminary Molecular ID 04/26/25 11:55 Urine Culture - Final Urine,Catheterized
--- NOTE | 2025-04-28 12:48 | CA ---
Transthoracic Echo Report Name: Chris Marvin Age: 64 Gender: M : 1960 Exam Date: 04/28/2025 07:42 Exam Location: [place] [facility] Ht (in): 64 Wt (lb): 202 Ordering Physician: Ousmane Bundy MD Attending/Referring Phys: Disposal Plant Operator Brenden Moore RDCS Procedure CPT: Indications: LV function, CHF Cardiac Hx: Technical Quality: Technically difficult study Contrast 1: Total Dose (mL): Contrast 2: Total Dose (mL): MEASUREMENTS (Male / Female) Normal Values 2D ECHO LV Diastolic Diameter PLAX 4.4 cm 4.2 - 5.9 / 3.9 - 5.3 cm LV Systolic Diameter PLAX 2.9 cm IVS Diastolic Thickness 1.5 cm 0.6 - 1.0 / 0.6 - 0.9 cm LVPW Diastolic Thickness 1.2 cm 0.6 - 1.0 / 0.6 - 0.9 cm LV Relative Wall Thickness 0.6 RV Internal Dim ED PLAX 2.3 cm LVOT Diameter 2.2 cm LA Systolic Diameter LX 3.1 cm 3.0 - 4.0 / 2.7 - 3.8 cm LV Diastolic Volume MOD BP 73.2 cm??? 67 - 155 / 56 - 104 cm??? LV Systolic Volume MOD BP 38.8 cm??? - 58 / 19 - 49 cm??? LV Ejection Fraction MOD BP 47.0 % >= 55 % LV Cardiac Index MOD BP 1561.4 cm???/min???m??? LV Diastolic Volume MOD 4C 80.5 cm??? LV Systolic Volume MOD 4C 34.5 cm??? LV Ejection Fraction MOD 4C 57.1 % LV Cardiac Index MOD 4C 2086.1 cm???/min???m??? LV Diastolic Length 4C 7.7 cm LV Systolic Length 4C 5.8 cm LV Diastolic Volume MOD 2C 63.9 cm??? LV Systolic Volume MOD 2C 42.7 cm??? LV Ejection Fraction MOD 2C 33.1 % LV Cardiac Index MOD 2C 958.6 cm???/min???m??? LV Diastolic Length 2C 7.4 cm LV Systolic Length 2C 6.1 cm LA Volume 32.5 cm??? 18 - 58 / 22 - 52 cm??? LA Volume Index 15.7 cm???/m??? 16 - 28 cm???/m??? M-MODE Aortic Root Diameter MM 3.5 cm LA Systolic Diameter MM 2.8 cm LA Ao Ratio MM 0.8 AV Cusp Separation MM 2.1 cm DOPPLER AV Peak Velocity 85.7 cm/s AV Peak Gradient 2.9 mmHg AV Mean Velocity 60.4 cm/s AV Mean Gradient 2.4 mmHg AV Velocity Time Integral 15.0 cm LVOT Peak Velocity 77.0 cm/s LVOT Peak Gradient 2.4 mmHg LVOT Velocity Time Integral 12.3 cm LVOT Stroke Volume 45.0 cm??? LVOT Stroke Volume Index 22.9 ml/m??? LVOT Cardiac Index 2038.9 cm???/min???m??? AV Area Cont Eq vti 3.0 cm??? AV Area Cont Eq pk 3.3 cm??? MV Area PHT 4.5 cm??? Mitral E Point Velocity 56.3 cm/s Mitral A Point Velocity 57.6 cm/s Mitral E to A Ratio 1.0 MV Deceleration Time 168.9 ms FINDINGS Left Ventricle Left ventricular ejection fraction is estimated at 55%. Moderately increased septal wall thickness. Left ventricular systolic function borderline normal.left ventricular cavity size normal. Right Ventricle Right ventricle not well visualized. Right Atrium Normal right atrial size. Left Atrium Normal left atrial size. Mitral Valve No mitral stenosis. Mild mitral regurgitation. Aortic Valve Trileaflet aortic valve. No aortic regurgitation. No aortic stenosis. Tricuspid Valve Tricuspid valve not well visualized. Trace tricuspid regurgitation. Pulmonic Valve Pulmonic valve not well visualized. Trace pulmonic regurgitation. Pericardium Normal pericardium. No pericardial or pleural effusion. Aorta Normal size aortic root and proximal ascending aorta. CONCLUSIONS Technically difficult study. Definity ECHO contrast used for improved visualization of the endocardial borders (inadequate visualization of two or more contiguous segments). Left ventricular systolic function borderline normal Mild mitral regurgitation Previewed by: Dr. Nathan Sanchez MD (Electronically Signed) Final Date: 28 April 2025 12:47
--- NOTE | 2025-04-28 13:38 | PN ---
PROGRESS NOTE SUBJECTIVE: Came in with severe sepsis, UTI, and aspiration pneumonia, seen by operating room orderly for some CHF. He is on breathing treatments, antibiotics per Dr. Farah. The patient has dementia and does not respond well, but he is lying comfortably in bed. Waiting for Dr. Farah to finalize antibiotics. OBJECTIVE: VITAL SIGNS: Pulse 56 to 80, respiratory rate 12 to 14. CARDIOVASCULAR: S1 and S2. HEMATOLOGY: Negative Homans. PSYCH: Fair mood and affect. ASSESSMENT: ordered echo to evaluate for CHF, improving his medications. Prognosis guarded. Aspiration precautions. Chest x-ray is negative. Labs were negative for troponins. Medications were adjusted by Cardiology. Ejection fraction 35% to 40%. Continue current treatment. Await for final antibiotics per Dr. Farah on discharge. MMODL / IJN: [id number] /
--- NOTE | 2025-04-28 16:11 | P.PN ---
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 On today's evaluation that is 04/28/2025, Patient is afebrile this morning patient is breathing comfortably is currently on room air no vomiting diarrhea no changes reported patient unable provide any history. Patient did have creatinine 0.67 blood culture from 727 with staph epi Objective - Vital Signs Vital signs: Vital Signs Temp 97.5 F L 04/28/25 14:00 Pulse 89 04/28/25 14:00 Resp 18 04/28/25 14:00 BP 129/80 04/28/25 14:00 Pulse Ox 97 04/28/25 14:00 FiO2 21 04/18/25 08:04 Intake & Output 04/27/25 04/28/25 04/28/25 18:59 06:59 18:59 Output Total 650 Balance -650 Weight 89.5 kg Output: Urine 650 Other: Voiding Method Indwelling Catheter Indwelling Catheter Indwelling Catheter - Exam GENERAL DESCRIPTION: An elderly male lying in bed in no distress RESPIRATORY SYSTEM: Unlabored breathing , decreased breath sounds at bases HEART: S1 S2 regular rate and rhythm , ABDOMEN: Soft , no tenderness EXTREMITIES: No edema feet - Labs CBC & Chem 7: 04/27/25 14:09 04/28/25 10:42 Labs: Abnormal Lab Results - Last 24 Hours (Table) 04/27/25 04/28/25 04/28/25 Range/Units 16:54 00:40 06:03 BUN (9-20) mg/dL Glucose (74-99) mg/dL POC Glucose (mg/dL) 131 H 171 H 160 H (70-110) mg/dL 04/28/25 04/28/25 Range/Units 10:42 11:25 BUN 26 H (9-20) mg/dL Glucose 105 H (74-99) mg/dL POC Glucose (mg/dL) 124 H (70-110) mg/dL Microbiology - Last 24 Hours (Table) 04/26/25 12:19 Blood Culture Gram Stain - Preliminary Blood Blood Culture - Preliminary Molecular ID 04/26/25 11:55 Urine Culture - Final Urine,Catheterized Assessment and Plan (1) Severe sepsis Current Visit: Yes Status: Acute Code(s): A41.9 - SEPSIS, UNSPECIFIED ORGANISM; R65.20 - SEVERE SEPSIS WITHOUT SEPTIC SHOCK SNOMED Code(s): 00745767 (2) UTI (urinary tract infection) Current Visit: Yes Status: Acute Code(s): N39.0 - URINARY TRACT INFECTION, SITE NOT SPECIFIED SNOMED Code(s): 03554830 (3) Allergy to multiple antibiotics Current Visit: No Status: Acute Code(s): Z88.1 - ALLERGY STATUS TO OTHER ANTIBIOTIC AGENTS SNOMED Code(s): 119694668 (4) Pneumonia Current Visit: No Status: Acute Code(s): J18.9 - PNEUMONIA, UNSPECIFIED ORGANISM SNOMED Code(s): 410550821 Plan: 1patient presented to the hospital with sepsis in this patient who did have fever tachycardia elevated white count source unlikely combination of aspiration pneumonia and also component of catheter associated UTI in this patient significantly positive UA and abnormality of the bladder seen on the CAT scan. 2patient with multiple antibiotic ALLERGIES that would limit the number of antibiotic safe to use. 3patient did have resolution of his fever and culture has been negative patient has completed his course of IV antibiotics we will discontinue Invanz 4positive blood culture with staph epi possible skin contamination as patient no fever or elevated white count no need for vancomycin at this point Dictation was produced using [employer] dictation software. please excuse any grammatical, word or spelling errors. Time with Patient: Less than 30
--- NOTE | 2025-04-28 16:11 | P.PN ---
Subjective Progress Note Date: 04/27/25 Principal diagnosis: Reason for follow-up is sepsis pneumonia/UTI Patient is 64-year-old male with a past medical history significant for MS in this patient who is bedbound [facility] resident also history of seizure disorder history recurrent pneumonia and Recent UTI patient has been brought into the ER concerning for increasing shortness of breath admit the hospital concerning for aspiration pneumonia and a catheter/UTI. On today's evaluation that is 04/27/2025, patient has been afebrile, patient is breathing comfortably and is currently on room air, patient remains to be nonverbal unable to provide any history no vomiting or diarrhea has been reported. Patient white count is 4.59, creatinine 0.60 Objective - Vital Signs Vital signs: Vital Signs Temp 97.6 F 04/27/25 07: Pulse 92 04/27/25 13:01 Resp 20 04/27/25 13:01 BP 146/84 04/27/25 07:28 Pulse Ox 97 04/27/25 07:28 FiO2 21 04/18/25 08:04 Intake & Output 04/26/25 04/27/25 04/27/25 18:59 06:59 18:59 Output Total 1450 1300 Balance -1450 -1300 Output: Urine 1450 1300 Other: Voiding Method Indwelling Catheter Indwelling Catheter Indwelling Catheter # Bowel Movements 1 - Exam GENERAL DESCRIPTION: An elderly male lying in bed in no distress RESPIRATORY SYSTEM: Unlabored breathing , decreased breath sounds at bases HEART: S1 S2 regular rate and rhythm , ABDOMEN: Soft , no tenderness EXTREMITIES: No edema feet - Labs CBC & Chem 7: 04/27/25 14:09 04/28/25 10:42 Labs: Abnormal Lab Results - Last 24 Hours (Table) 04/26/25 04/26/25 04/27/25 Range/Units 12:19 17:20 06:48 Potassium (3.5-5.1) mmol/L BUN (9-20) mg/dL Creatinine 0.60 L (0.66-1.25) mg/dL Glucose (74-99) mg/dL POC Glucose (mg/dL) 112 H 159 H (70-110) mg/dL Albumin 3.3 L (3.5-5.0) g/dL 04/27/25 04/27/25 Range/Units 09:25 11:33 Potassium 5.2 H (3.5-5.1) mmol/L BUN 21 H (9-20) mg/dL Creatinine 0.60 L (0.66-1.25) mg/dL Glucose 118 H (74-99) mg/dL POC Glucose (mg/dL) 129 H (70-110) mg/dL Albumin 3.3 L (3.5-5.0) g/dL Assessment and Plan (1) Severe sepsis Current Visit: Yes Status: Acute Code(s): A41.9 - SEPSIS, UNSPECIFIED ORGANISM; R65.20 - SEVERE SEPSIS WITHOUT SEPTIC SHOCK SNOMED Code(s): 38882761 (2) UTI (urinary tract infection) Current Visit: Yes Status: Acute Code(s): N39.0 - URINARY TRACT INFECTION, SITE NOT SPECIFIED SNOMED Code(s): 87915795 (3) Allergy to multiple antibiotics Current Visit: No Status: Acute Code(s): Z88.1 - ALLERGY STATUS TO OTHER ANTIBIOTIC AGENTS SNOMED Code(s): 137165158 (4) Pneumonia Current Visit: No Status: Acute Code(s): J18.9 - PNEUMONIA, UNSPECIFIED ORGANISM SNOMED Code(s): 704965783 Plan: 1patient presented to the hospital with sepsis in this patient who did have fever tachycardia elevated white count source unlikely combination of aspiration pneumonia and also component of catheter associated UTI in this patient significantly positive UA and abnormality of the bladder seen on the CAT scan. 2patient with multiple antibiotic ALLERGIES that would limit the number of antibiotic safe to use. 3patient did have resolution of his fever and culture has been negative he will complete his 10-day course of IV Invanz today Dictation was produced using [employer] dictation software. please excuse any gramm atical, word or spelling errors. Time with Patient: Less than 30
[2025-04-28 18:30] LABS: Glucose,Whole Blood 133 mg/dL (70-110)
[2025-04-29 06:17] LABS: Glucose,Whole Blood 127 mg/dL (70-110)
[2025-04-29 10:54] LABS: Anion Gap 11.00 mmol/L (4.00-12.00); BUN/Creat Ratio 38.00 Ratio (12.00-20.00); Blood Urea Nitrogen 26.6 mg/dL (9.0-27.0); Calcium 8.8 mg/dL (8.7-10.3); Carbon Dioxide 26.0 mmol/L (21.6-31.8); Chloride 101 mmol/L (96-109); Glucose 121 mg/dL (70-110); Potassium 5.0 mmol/L (3.5-5.5); Sodium 138 mmol/L (135-145)
[2025-04-29 13:11] LABS: Glucose,Whole Blood 90 mg/dL (70-110)
[2025-04-29 13:40] VITALS: BMI 34.0
--- NOTE | 2025-04-29 15:53 | P.PN ---
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 On today's evaluation that is 04/29/2025,the patient remains to be afebrile he is breathing comfortably currently on room air no vomiting diarrhea or any other changes reported by the nursing staff. Patient did have a creatinine 0.7 no CBC was done today blood culture with staph epi and Staph capitis Objective - Vital Signs Vital signs: Vital Signs Temp 99.2 F 04/29/25 13:45 Pulse 77 04/29/25 13:50 Resp 17 04/29/25 13:50 BP 135/79 04/29/25 13:45 Pulse Ox 95 04/29/25 13:45 FiO2 21 04/18/25 08:04 Intake & Output 04/28/25 04/29/25 04/29/25 18:59 06:59 18:59 Intake Total 1440 Output Total 700 Balance -700 1440 Weight 90 kg 90 kg Intake: Oral 0 Tube Feeding 1440 Output: Urine 700 Uretheral (Stein) 700 Other: Voiding Method Indwelling Catheter Indwelling Catheter Indwelling Catheter - Exam GENERAL DESCRIPTION: An elderly male lying in bed in no distress RESPIRATORY SYSTEM: Unlabored breathing , decreased breath sounds at bases HEART: S1 S2 regular rate and rhythm , ABDOMEN: Soft , no tenderness EXTREMITIES: No edema feet - Labs CBC & Chem 7: 04/27/25 14:09 04/29/25 08:21 Labs: Abnormal Lab Results - Last 24 Hours (Table) 04/28/25 04/29/25 04/29/25 Range/Units 18:28 06:16 08:21 BUN/Creatinine Ratio 38.00 H (12.00-20.00) Ratio Glucose 121 H (70-110) mg/dL POC Glucose (mg/dL) 133 H 127 H (70-110) mg/dL Microbiology - Last 24 Hours (Table) 04/26/25 12:19 Blood Culture Gram Stain - Preliminary Blood Blood Culture - Preliminary Staphylococcus epidermidis Staphylococcus capitis Molecular ID Assessment and Plan (1) Severe sepsis Current Visit: Yes Status: Acute Code(s): A41.9 - SEPSIS, UNSPECIFIED ORGANISM; R65.20 - SEVERE SEPSIS WITHOUT SEPTIC SHOCK SNOMED Code(s): 60791472 (2) UTI (urinary tract infection) Current Visit: Yes Status: Acute Code(s): N39.0 - URINARY TRACT INFECTION, SITE NOT SPECIFIED SNOMED Code(s): 01252448 (3) Allergy to multiple antibiotics Current Visit: No Status: Acute Code(s): Z88.1 - ALLERGY STATUS TO OTHER ANTIBIOTIC AGENTS SNOMED Code(s): 692804595 (4) Pneumonia Current Visit: No Status: Acute Code(s): J18.9 - PNEUMONIA, UNSPECIFIED ORGANISM SNOMED Code(s): 713313675 Plan: 1patient presented to the hospital with sepsis in this patient who did have fever tachycardia elevated white count source unlikely combination of aspiration pneumonia and also component of catheter associated UTI in this patient significantly positive UA and abnormality of the bladder seen on the CAT scan. 2patient with multiple antibiotic ALLERGIES that would limit the number of antibiotic safe to use. 3patient did have resolution of his fever and culture has been negative patient has completed his course of IV antibiotics, Invanz was discontinued yesterday 4positive blood culture with staph epi as well as staph capitis likely skin contamination as patient no fever or elevated white count no need for vancomycin at this point Dictation was produced using [employer] dictation software. please excuse any grammatical, word or spelling errors. Time with Patient: Less than 30
[2025-04-29 18:18] LABS: Glucose,Whole Blood 86 mg/dL (70-110)
[2025-04-30 02:11] LABS: Glucose,Whole Blood 121 mg/dL (70-110)
[2025-04-30 06:02] LABS: Glucose,Whole Blood 121 mg/dL (70-110)
--- NOTE | 2025-04-30 06:51 | DS ---
DISCHARGE SUMMARY DIAGNOSES: Urinary tract infection, severe sepsis secondary to urinary tract infection and aspiration pneumonia, acute encephalopathy, chronic obstructive pulmonary disease, coronary artery disease, dementia. HOME MEDICATIONS: 1. Spironolactone 25 mg daily. 2. Lasix 40 mg daily. 3. Lovenox 40 mg subcu daily through PEG tube. 4. Tylenol 650 q.6h. p.r.n. 5. Aspirin 81 mg through PEG tube daily. 6. Tegretol 100 mg through PEG tube t.i.d. 7. Scopolamine patch every 72 hours. 8. Lactulose 20 g through PEG tube t.i.d. for constipation. 9. DuoNeb nebulizers t.i.d. regular scheduled. 10.Baclofen 5 mg through PEG tube t.i.d. 11.Dulcolax 10 mg rectally p.r.n. for constipation. 12.Otoset oral liquid 30 mL through PEG tube daily. 13.Guaifenesin syrup 200 mg through PEG tube b.i.d. 14.Lopressor 12.5 b.i.d. through PEG tube. 15.Oxybutynin 5 mg through PEG tube daily. 16.Pepcid 20 mg through PEG tube daily. 17.Amantadine 100 mg through PEG tube daily. 18.Omeprazole 20 mg through PEG tube daily. 19.Cozaar 25 mg through PEG tube daily. 20.Pulmicort 1 mg nebulizer b.i.d. 21.DuoNeb t.i.d. scheduled. 22.Vimpat 150 mg through PEG tube q.12 hours. Scheduled for seizures. PROGNOSIS: Guarded. Ambulate as tolerated. Feeding through PEG tube. PT, OT will be needed. Aspiration precautions. Elevate head of bed 45 degrees. He wears oxygen at night. He uses oxygen concentrator for nighttime oxygen. He uses DuoNeb updraft t.i.d. Condition stable. Prognosis guarded. Ambulate as tolerated. MMODL / IJN: [id number] /
[2025-04-30 09:06] VITALS: BP 134/83; RESP 17; TEMP 98.1
[2025-04-30 13:07] VITALS: PULSE 58
--- NOTE | 2025-05-01 15:21 | P.PN ---
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 On today's evaluation that is 04/30/2025,the patient remains to be afebrile, patient is on room air not requiring supplemental oxygen and breathing comfortably no distress patient remains with normal blood no vomiting diarrhea or change reported by the nursing staff. No new lab has been obtained today Objective - Vital Signs Vital signs: Vital Signs Temp 98.1 F 04/30/25 06:56 Pulse 78 04/30/25 12:10 Resp 17 04/30/25 08:10 BP 134/83 04/30/25 06:56 Pulse Ox 94 L 04/30/25 06:56 FiO2 21 04/18/25 08:04 Intake & Output 04/29/25 04/30/25 04/30/25 18:59 06:59 18:59 Intake Total 1440 720 Output Total 900 500 Balance 540 -500 720 Weight 90 kg 85 kg Intake: Oral 0 Tube Feeding 1440 720 Output: Urine 900 500 Other: Voiding Method Indwelling Catheter Indwelling Catheter Indwelling Catheter - Exam GENERAL DESCRIPTION: An elderly male lying in bed in no distress RESPIRATORY SYSTEM: Unlabored breathing , decreased breath sounds at bases HEART: S1 S2 regular rate and rhythm , ABDOMEN: Soft , no tenderness EXTREMITIES: No edema feet - Labs CBC & Chem 7: 04/27/25 14:09 04/29/25 08:21 Labs: Abnormal Lab Results - Last 24 Hours (Table) 04/30/25 04/30/25 Range/Units 02:08 06:00 POC Glucose (mg/dL) 121 H 121 H (70-110) mg/dL Microbiology - Last 24 Hours (Table) 04/26/25 12:19 Blood Culture Gram Stain - Final Blood Blood Culture - Final Staphylococcus epidermidis Staphylococcus capitis Molecular ID Assessment and Plan (1) Severe sepsis Status: Acute Code(s): A41.9 - SEPSIS, UNSPECIFIED ORGANISM; R65.20 - SEVERE SEPSIS WITHOUT SEPTIC SHOCK SNOMED Code(s): 99203077 (2) UTI (urinary tract infection) Status: Acute Code(s): N39.0 - URINARY TRACT INFECTION, SITE NOT SPECIFIED SNOMED Code(s): 02397358 (3) Allergy to multiple antibiotics Status: Acute Code(s): Z88.1 - ALLERGY STATUS TO OTHER ANTIBIOTIC AGENTS SNOMED Code(s): 958710063 (4) Pneumonia Status: Acute Code(s): J18.9 - PNEUMONIA, UNSPECIFIED ORGANISM SNOMED Code(s): 540916448 Plan: 1patient presented to the hospital with sepsis in this patient who did have fever tachycardia elevated white count source unlikely combination of aspiration pneumonia and also component of catheter associated UTI in this patient significantly positive UA and abnormality of the bladder seen on the CAT scan. 2patient with multiple antibiotic ALLERGIES that would limit the number of antibiotic safe to use. 3patient did have resolution of his fever and urine culture has been negative patient has completed his course of IV antibiotics, Invanz was discontinued and seem to be doing well off antibiotic for the last 2 days 4positive blood culture with staph epi as well as staph capitis likely skin contamination as patient no fever or elevated white count no need for vancomycin or any antibiotic on discharge Dictation was produced using [employer] dictation software. please excuse any grammatical, word or spelling errors. Time with Patient: Less than 30
== END 2025-04-30 13:34 | DRG 871 ==
LOC: EC 17:22 → 3SCARD 20:51 → 4SSUR 04-25 18:18
PROVIDERS: ADMIT Family Medicine; ATTEND Family Medicine
DX: A41.9 Sepsis, unspecified organism (principal); G93.41 Metabolic encephalopathy; J69.0 Pneumonitis due to inhalation of food and vomit; I21.A1 Myocardial infarction type 2; I50.23 Acute on chronic systolic (congestive) heart failure; J18.9 Pneumonia, unspecified organism; L89.152 Pressure ulcer of sacral region, stage 2; I42.9 Cardiomyopathy, unspecified; R13.10 Dysphagia, unspecified; J44.0 Chronic obstructive pulmonary disease with (acute) lower respiratory infection; G82.20 Paraplegia, unspecified; F03.90 Unspecified dementia, unspecified severity, without behavioral disturbance, psychotic disturbance, mood disturbance, and anxiety; I11.0 Hypertensive heart disease with heart failure; G40.909 Epilepsy, unspecified, not intractable, without status epilepticus; T83.518A Infection and inflammatory reaction due to other urinary catheter, initial encounter; N39.0 Urinary tract infection, site not specified; G35 Multiple sclerosis; Z93.1 Gastrostomy status; R65.20 Severe sepsis without septic shock; N31.9 Neuromuscular dysfunction of bladder, unspecified; I25.10 Atherosclerotic heart disease of native coronary artery without angina pectoris; Z79.82 Long term (current) use of aspirin; Z88.1 Allergy status to other antibiotic agents; Z88.8 Allergy status to other drugs, medicaments and biological substances; Z86.718 Personal history of other venous thrombosis and embolism; Z74.01 Bed confinement status; Z86.73 Personal history of transient ischemic attack (TIA), and cerebral infarction without residual deficits
CPT/HCPCS: 36415; 70450; 71045; 71046; 71250; 74176; 80048; 80053; 81001; 82533; 83605; 83735; 83880; 84145; 84484; 85025; 85610; 85730; 86140; 87040; 87077; 87086; 87186; 87636; 93005; 93306; 94640; 94760; 96365; 96367; 96368; 99291